=== PATIENT | female | born 1950 | race Caucasian/White ===

== ENCOUNTER → 2016-08-07 | Outpatient (CLI) | payer MEDICARE ==
[~2016-08-07] MED LIST: ACHD5005 PO; ALEN70TA47 PO; AZIT-21 PO; BENZ100C18 PO; CALC-80 PO; CEPH500C PO; CETI10CA PO; CHLO500T2 PO; CHOL500019 PO; FLUT50DI IH; HYDR-2890 PO; HYDR-3454 PO; LISI10TA2 PO; OMEP40CA36 PO; ZLP10T PO; [UNRECOGNIZED DRUG - CODE] PO
[2016-08-07 08:35] LABS: CREATININE SERUM 1.21 MG/DL (0.60-1.30); POTASSIUM 4.2 MMOL/L (3.6-5.0)
[2016-08-07 08:49] LABS: THYROID STIMULATING HORMONE 9.34 UIU/ML (0.35-4.94)
== END ==
LOC: LAB 08:01
PROVIDERS: ATTEND Internal Medicine Endocrinology, Diabetes & Metabolism
DX: E04.1 Nontoxic single thyroid nodule (principal); M85.80 Other specified disorders of bone density and structure, unspecified site; E21.3 Hyperparathyroidism, unspecified; Z98.84 Bariatric surgery status
CPT/HCPCS: 36415; 80048; 84443

== ENCOUNTER → 2016-08-27 | Outpatient (CLI) | payer MEDICARE, OTHER ==
[2016-08-27 13:59] LABS: MEAN PLATELET VOLUME 10.6 FL (7.4-10.4); RED BLOOD COUNT 4.89 10^6/uL (4.35-5.85); RED CELL DISTRIBUTION WIDTH 13.4 % (10.0-14.5); WHITE BLOOD COUNT 8.4 10^3/uL (4.3-11.0)
[2016-08-27 14:02] LABS: KETONES,URINE 1+ (NEGATIVE); LEUKOCYTE ESTERASE ,URINE 3+ (NEGATIVE); NITRITE,URINE NEGATIVE (NEGATIVE); PH,URINE 5 (5-9); PROTEIN,URINE 1+ (NEGATIVE); UROBILINOGEN,URINE 1 MG/DL (NORMAL)
[2016-08-27 14:10] LABS: BILIRUBIN,URINE 1+ (NEGATIVE)
[2016-08-27 14:14] LABS: ALBUMIN 4.3 G/DL (3.2-4.5); CALCIUM 9.2 MG/DL (8.5-10.1); CREATININE SERUM 1.32 MG/DL (0.60-1.30); PHOSPHORUS 3.7 MG/DL (2.3-4.7); POTASSIUM 4.4 MMOL/L (3.6-5.0)
[2016-08-28 07:35] LABS: CALCIUM PARA THYROID HORMONE 9.4 mg/dL (8.5-10.5); MICROALBUMIN/CREATININE RATIO 4.5 mg/gCR (0.0-30.0)
== END ==
LOC: LAB 13:24
PROVIDERS: ATTEND Internal Medicine Nephrology
DX: N18.3 Chronic kidney disease, stage 3 (moderate) (principal); I12.9 Hypertensive chronic kidney disease with stage 1 through stage 4 chronic kidney disease, or unspecified chronic kidney disease; M19.90 Unspecified osteoarthritis, unspecified site; Z98.84 Bariatric surgery status
CPT/HCPCS: 36415; 80069; 81000; 82043; 82306; 83970; 85027; 87088

== ENCOUNTER 2017-07-07 12:50 | Outpatient (CLI) | payer MEDICARE ==
[~2017-07-07] VITALS: Ht 167.6 cm; Wt 119.4 kg
[2017-07-07] MEDS ORDERED: CETI10TA17 PO (13:13)
[2017-07-07] MEDS ORDERED: HYDR-3820 PO (13:13)
[2017-07-07] MEDS ORDERED: FLUT9.9S NS (13:13)
[2017-07-07] MEDS ORDERED: MULT-35 PO (13:13)
[2017-07-07] MEDS ORDERED: ZOLP10TA5 PO (13:13)
[2017-07-07] MEDS ORDERED: CHLO500T4 PO (13:13)
[2017-07-07] MEDS ORDERED: MECL-124 PO (13:13)
[2017-07-07] MEDS ORDERED: LEVO50TA6 PO (13:13)
[2017-07-07] MEDS ORDERED: CALC600T12 PO (13:13)
[2017-07-07] MEDS ORDERED: OMEP40CA36 PO (13:13)
[2017-07-07] MEDS ORDERED: LISI10TA2 PO (13:13)
[2017-07-07] MEDS ORDERED: SODI650T PO (13:13)
[2017-07-07 13:19] VITALS: BP 135/86
== END 2017-07-07 14:21 | disposition home or self-care (01) ==
LOC: PREOP 12:50
PROVIDERS: ATTEND Podiatrist Foot & Ankle Surgery
DX: Z01.818 Encounter for other preprocedural examination (principal); Z11.2 Encounter for screening for other bacterial diseases; M20.42 Other hammer toe(s) (acquired), left foot; M89.372 Hypertrophy of bone, left ankle and foot; G57.82 Other specified mononeuropathies of left lower limb
CPT/HCPCS: 87081

== ENCOUNTER 2017-07-20 06:00 | Day surgery (SDC) | payer MEDICARE, OTHER ==
[~2017-07-20 06:00] MED LIST changes: +CALC600T12 PO; +CETI10TA17 PO; +CHLO500T4 PO; +FLUT9.9S NS; +HYDR-3820 PO; +LEVO50TA6 PO; +MECL-124 PO; +MULT-35 PO; +SODI650T PO; +ZOLP10TA5 PO
[2017-07-20] MEDS ORDERED: LACTATED RINGERS 1,000 ML IV PRN ×2 (06:12→06:56)
[2017-07-20 06:15] VITALS: BP 119/61
[2017-07-20] MEDS ORDERED: ceFAZolin INJECTION 1,000 MG in NS (IVPB) 50 ML IV ONE (06:15)
[2017-07-20] MEDS ORDERED: ceFAZolin INJECTION 1,000 MG in D5W 50 ML IVPB SOLUTION 50 ML IV ONE (06:45)
[2017-07-20] MEDS ORDERED: FAMOTIDINE 20MG/2ML IV (PEPCID) IV ONE (06:45)
[2017-07-20] MEDS ORDERED: ONDANSETRON 4 MG/2 ML (SDV) Z0FRAN IV ONE (06:45)
[2017-07-20] MEDS ORDERED: SCOPOLAMINE 1.5 MG (TRANSDERM-SCOP) PATCH TOP ONE (06:45)
[2017-07-20] MEDS ORDERED: proPOfol 200 MG/20 ML (DIPRIVAN) VIAL IV ONE (07:11)
[2017-07-20] MEDS ORDERED: DEXAMETHASONE 10 MG/ML (DECADRON) 1 ML VIAL ONE ×2 (07:11→07:23)
[2017-07-20] MEDS ORDERED: SEVOFLURANE (ULTANE) 15 ML INHAL SOLN ONE (07:11)
[2017-07-20] MEDS ORDERED: LIDOCAINE PF 2% 5 ML (XYLOCAINE) VIAL ONE (07:11)
[2017-07-20] MEDS ORDERED: ONDANSETRON 4 MG/2 ML (SDV) Z0FRAN ONE (07:11)
[2017-07-20] MEDS ORDERED: MIDAZOLAM 2 MG/2 ML (VERSED) VIAL ONE (07:12)
[2017-07-20] MEDS ORDERED: fentaNYL INJECTION 100 MCG/2 ML AMP ONE (07:12)
[2017-07-20 07:21] LABS: CALCIUM 8.7 MG/DL (8.5-10.1); CREATININE SERUM 0.98 MG/DL (0.60-1.30); POTASSIUM 3.9 MMOL/L (3.6-5.0)
[2017-07-20] MEDS ORDERED: BUPIVACAINE 0.5% 30 ML (SENSORCAINE) VIAL ONE (07:23)
--- NOTE | 2017-07-20 07:37 | Progress Note-Pre Operative ---
Pre-Operative Progress Note H&P Reviewed The H&P was reviewed, patient examined and no changes noted. Date Seen by Provider: Jul 20, 2017 Time Seen by Provider: 07:36 Date H&P Reviewed: Jul 20, 2017 Time H&P Reviewed: 07:36 Pre-Operative Diagnosis: Hammertoe 3rd, Hypertrophic 3rd metatarsal, Neuroma all left ERIKA BRASWELL DPM Jul 20, 2017 7:37 am
[2017-07-20] MEDS ORDERED: LACTATED RINGERS 1,000 ML IV SCH (09:02)
--- NOTE | 2017-07-20 09:02 | Progress Note-Post Operative ---
Post-Operative Progess Note Surgeon (s)/Nut Process Helper (s) Surgeon ERIKA BRASWELL DPM Nut Process Helper: NONE Pre-Operative Diagnosis Hammertoe 3rd, Hypertrophic 3rd metatarsal, Neuroma all left Post-Operative Diagnosis same Procedure & Operative Findings Date of Procedure 07/20/17 Procedure Performed/Findings Reduction of hammertoe 3rd digit, 3rd metatarsal osteotomy, Neurectomy 3rd Interspace, all left Anesthesia Type General Estimated Blood Loss Estimated blood loss (mL): minimal Specimens/Packing Specimens Removed None ERIKA BRASWELL DPM Jul 20, 2017 9:02 am
[2017-07-20] MEDS ORDERED: CEPH500C PO (09:05)
[2017-07-20] MEDS ORDERED: HYDROcodone/APAP 5 MG/325 MG (LORTAB) TAB PO PRN (09:15)
[2017-07-20] MEDS ORDERED: ONDANSETRON 4 MG/2 ML (SDV) Z0FRAN IVP PRN ×2 (09:15)
[2017-07-20] MEDS ORDERED: morphine INJ 10 MG/ML 1ML (SYR OR VIAL) IVP PRN (09:15)
--- NOTE | 2017-07-20 09:31 | Diagnostic Imaging Report ---
INDICATION: Hammertoe deformity of the third toe on the left, postop. Time of exam: 9:10 AM Postop changes to the left toe are identified. There is a K wire transfixing the left third toe. A screw is identified in the distal third metatarsal. Alignment is normal. No fractures are seen. The midfoot is unremarkable. There is a moderate-sized plantar calcaneal spur. IMPRESSION: Postop changes, as described. No acute feature is detected. Dictated by: Dictated on workstation # [id number]
[2017-07-20 09:55] VITALS: BP 117/65
[2017-07-20 10:25] VITALS: BP 127/68
[2017-07-20 10:55] VITALS: BP 127/68
[2017-07-20 11:00] VITALS: BP 151/76
--- NOTE | 2017-07-20 12:15 | OPERATIVE REPORT ---
DATE OF SERVICE: 07/20/2017 SURGEON: Ml Braswell DPM PREOPERATIVE DIAGNOSES: 1. Hammer digit syndrome, left third toe. 2. Hypertrophic third metatarsal. 3. Neuroma third and second intermetatarsal space, left foot. POSTOPERATIVE DIAGNOSES: 1. Hammer digit syndrome, left third toe. 2. Hypertrophic third metatarsal. 3. Neuroma third and second intermetatarsal space, left foot with the exception of no neuroma located at the second intermetatarsal space, left foot. PROCEDURE: 1. Reduction of hammertoe, left third digit. 2. Third metatarsal osteotomy. 3. Neurectomy third intermetatarsal space, left foot. WOUND CLASS: Clean. ANESTHESIA: General. HEMOSTASIS: Pneumatic ankle tourniquet at 250 mmHg. INDICATION: This 66-year-old female presents complaining of a painful left foot. Conservative therapy has met with unsatisfactory results and the patient is agreeable to surgical intervention after risks and complications were discussed at length. No guarantees were extended to the patient and she is willing to proceed. DESCRIPTION OF PROCEDURE: The patient was brought back to the operating table, placed in a secure supine position. Appropriate timeout was performed. General anesthetic was then induced. A pneumatic ankle tourniquet was placed on the left lower extremity over several layers of padding. The left foot was then prepped and draped in normal sterile manner. The left foot was then elevated not allowed to exsanguinate, after which the tourniquet was inflated to 250 mmHg. Attention was then directed to the dorsal aspect of the third ray where a 6 cm longitudinal linear incision was created from the metatarsal surgical neck to the distal interphalangeal joint. The incision was deepened in the same plane with great care to identify and retract all vital neurovascular structures. All the necessary blood vessels were cauterized as encountered. The incision was deepened down to the extensor tendon where a Z slide lengthening was performed overlying the proximal phalanx. The extensor tendon was reflected proximally releasing the extensor palomino overlying the metatarsophalangeal joint. A dorsal capsulorrhaphy was then performed to the third metatarsophalangeal joint and a release of the medial and lateral collateral ligaments. This exposed the hypertrophic head of the third metatarsal. Next, a Caden type osteotomy was then performed. A power sagittal saw was utilized to create the osteotomy allowing the capital fragment to translocate proximally and was fixated in its corrected position utilizing a 2.0 snap-off screw of 12 mm of length. Excellent bony apposition and fixation was appreciated at this time. The excess third metatarsal head was resected with a rongeur. Excellent range of motion was appreciated at the third metatarsophalangeal joint. The wound was flushed. Attention was then directed to the contracture at the proximal interphalangeal joint of the left third digit. Release of the medial and lateral collateral ligaments was performed. The head of the proximal phalanx was fashioned into a peg with a power sagittal saw and a power bur and a hole was created to the base of the middle phalanx with a power bur. A 0.054 K-wire was utilized to fixate the digit in its corrected position. Excellent bony apposition and fixation was appreciated at this time. The excess K-wire at the end of the toe was cut and a protective ball was placed over the end of the wire. Soft tissue exploration was then performed into the second and third intermetatarsal space. There is no neuroma identified to the second intermetatarsal space of the left foot; however, there was a yellow enlarged mass to the left third intermetatarsal space grossly identified to be a neuroma. This mass was then excised as proximally as possible and sent for gross and microscopic evaluation. The wounds were flushed with copious amounts of normal saline and closure was then performed in layers. Deep closure was performed with 3-0 Vicryl, superficial with 4-0 Vicryl, skin was closed with 4-0 Prolene in a horizontal mattress type stitch. Postoperative injection included 13 mL of 0.5% Marcaine followed by 10 mg of dexamethasone into the third intermetatarsal space, left foot. Postoperative dressing consisted of Betadine soaked Adaptic, sterile 4 x 4, sterile Kerlix all secured with a Coban wrap. The patient tolerated the anesthesia and procedure well, was transported from the operating room to the recovery area with vital signs stable and vascular status intact to all digits of the left foot. She was given a prescription for Keflex. She already has a prescription for hydrocodone at home. We will see her in the office for followup in 10 days' period of time or sooner if necessary. Job ID: [id number] DocumentID: [id number] Dictated Date: 07/20/2017 09:13:00 Boiler Assistant Operator Date: 07/20/2017 12:14:53 Dictated By: ML BRASWELL DPM
== END 2017-07-20 11:20 | disposition home or self-care (01) ==
LOC: SDC 06:00
PROVIDERS: ATTEND Podiatrist Foot & Ankle Surgery
DX: M20.42 Other hammer toe(s) (acquired), left foot (principal); M89.372 Hypertrophy of bone, left ankle and foot; G57.82 Other specified mononeuropathies of left lower limb; I12.9 Hypertensive chronic kidney disease with stage 1 through stage 4 chronic kidney disease, or unspecified chronic kidney disease; M81.0 Age-related osteoporosis without current pathological fracture; M79.7 Fibromyalgia; Z79.899 Other long term (current) drug therapy; K21.9 Gastro-esophageal reflux disease without esophagitis; N18.3 Chronic kidney disease, stage 3 (moderate); Z88.8 Allergy status to other drugs, medicaments and biological substances
CPT/HCPCS: 36415; 73620; 80048

== ENCOUNTER 2017-09-14 06:08 | Outpatient (CLI) | payer MEDICARE ==
[~2017-09-14] VITALS: Ht 167.6 cm; Wt 119.4 kg
[2017-09-14] MEDS ORDERED: LISI-556 PO (13:23)
== END 2017-09-14 13:26 ==
LOC: PREOP 06:08
PROVIDERS: ATTEND Surgery
DX: Z01.818 Encounter for other preprocedural examination (principal); Z86.010 Personal history of colon polyps; Z80.0 Family history of malignant neoplasm of digestive organs

== ENCOUNTER 2017-09-21 08:46 | Day surgery (SDC) | payer MEDICARE ==
[~2017-09-21] VITALS: Ht 167.6 cm; Wt 119.4 kg
[~2017-09-21 08:46] MED LIST changes: +LISI-556 PO
--- OUTSIDE RECORDS SUMMARY | 2017-09-21 08:50 | XMS REPORT ---
Author STEPHAN Yoon Organization [employer] Address Unknown Phone Unavailable Care Team Providers Care Territory Supervisor Name Role Phone STEPHAN CORDERO CP Unavailable Allergies No Known Allergies Problems Problem Type Condition Code Onset Dates Condition Status Problem Myalgia M79.1 Active Problem Hypercholesteremia E78.0 Active Problem Arthritis M19.90 Active Problem Mood disorder F39 Active Problem Corns L84 Active Problem Hyperparathyroidism E21.3 Active Medications Medication Code System Code Instructions Start Date End Date Status Dosage Zolpidem Tartrate [facility] [address]-88 10 MG Orally Once a day 1 tablet at bedtime Results No Known Results Summary Purpose [employer]Clinical[employer] Submission
--- OUTSIDE RECORDS SUMMARY | 2017-09-21 08:50 | XMS REPORT ---
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 Problem Other abnormal glucose 790.29 Active Problem Pain in joint, ankle and foot 719.47 Active Problem Family history of malignant neoplasm of gastrointestinal tract V16.0 Active Problem Special screening for malignant neoplasms, colon V76.51 Active Problem Localized superficial swelling, mass, or lump 782.2 Active Problem Adjustment disorder with depressed mood 309.0 Active Problem Special screening for osteoporosis V82.81 Active Problem Other specified counseling V65.49 Active Problem Pure hypercholesterolemia 272.0 Active Problem Cognitive communication deficit 799.52 Active Problem Orthostatic hypotension 458.0 Active Problem Secondary localized osteoarthrosis, 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 Active Problem Unspecified myalgia and myositis 729.1 Active Problem Obesity, unspecified 278.00 Active Problem Unspecified arthropathy, site unspecified 716.90 Active Problem Unspecified backache 724.5 Active Problem Need for prophylactic vaccination and inoculation, Influenza V04.81 Active Problem Other disorders of bone and cartilage 733.99 Active Problem Other specified disease of nail 703.8 Active Problem Other B-complex deficiencies 266.2 Active Problem Lesion of plantar nerve 355.6 Active Problem Special screening examination, human papillomavirus [HPV] V73.81 Active Problem Unspecified breast screening V76.10 Active Problem Unspecified disorder of kidney and ureter 593.9 Active Problem Screening for malignant neoplasm of the cervix V76.2 Active Problem Other abnormal blood chemistry 790.6 Active Problem Lateral epicondylitis of elbow 726.32 Active Problem Unspecified anemia 285.9 Active Problem Unspecified disorders of bursae and tendons in shoulder region 726.10 Active Problem Unspecified renal failure 586 Active Problem Adjustment disorder with mixed anxiety and depressed mood 309.28 Active Problem Hyperparathyroidism, unspecified 252.00 Active Problem Corns and callosities 700 Active Problem Pain in joint, shoulder region 719.41 Active Problem Unspecified persistent mental disorders due to conditions classified elsewhere 294.9 Active Medications Medication Code System Code Instructions Start Date End Date Status Dosage Jarret [facility] [address]-92 10-325 MG Orally 3 times a day November 07, 2014 1 tablet as needed Results No Known Results Summary Purpose eClinicalWorks Submission
--- OUTSIDE RECORDS SUMMARY | 2017-09-21 08:50 | XMS REPORT ---
Author STEPHAN Yoon Organization [employer] Address Unknown Phone Unavailable Care Team Providers Care Central Supply Manager Name Role Phone STEPHAN CORDERO CP Unavailable Allergies, Adverse Reactions, Alerts Substance Reaction Event Type Clonidine 0.1 Mg Tablet Blurry vission and weakness. Non Drug Allergy Problems Problem Type Condition Code Onset Dates Condition Status Assessment Chronic kidney disease, stage 4 (severe) N18.4 Active Problem Myalgia M79.1 Active Problem Hypercholesteremia E78.0 Active Problem Arthritis M19.90 Active Problem Mood disorder F39 Active Assessment Renal insufficiency N28.9 Active Problem Corns L84 Active Problem Hyperparathyroidism E21.3 Active Medications Medication Code System Code Instructions Start Date End Date Status Dosage Lisinopril [facility] 75222172201 10 MG TAKE ONE TABLET BY MOUTH IN THE MORNING Roxie [facility] [address]-28 10-325 MG Orally 3 times a day November 07, 2014 1 tablet as needed Cetirizine HCl [facility] [address]-69 10 MG Orally Once a day 1 tablet Chlorzoxazone [facility] 28377583456 500 MG TAKE ONE TABLET BY MOUTH TWICE DAILY NEEDED Zolpidem Tartrate [facility] [address]-26 10 MG Orally Once a day 1 tablet at bedtime Pepcid [facility] [address]-21 20 MG Orally 2 times a day Mar 09, 2015 1 tablet at bedtime Procedures Procedure Coding System Code Date Office Visit, Est Pt., Level 3 CPT-4 56373 May 28, 2015 [facility] VISIT ESTABLISHED PATIENT CPT-4 G0467 May 28, 2015 Vital Signs Date/Time: May 28, 2015 Temperature 97.9 F Weight 266.5 lbs Height 66 in BMI 43.01 Index Blood Pressure Diastolic 66 mmHg Blood Pressure Systolic 104 mmHg Cardiac Monitoring Heart Rate 80 bpm Results No Known Results Summary Purpose [employer]ClinicalWorks Submission
--- OUTSIDE RECORDS SUMMARY | 2017-09-21 08:51 | XMS REPORT ---
Author STEPHAN Yoon [facility] e[employer] Address Unknown Phone Unavailable Care Team Providers Care Final Dressing Cutter Name Role Phone STEPHAN CORDERO CP Unavailable [...] Active Problem Unspecified renal failure 586 Active Assessment Hyperparathyroidism, unspecified 252.00 Active Problem Adjustment disorder with mixed anxiety and depressed mood 309.28 Active Problem Hyperparathyroidism, unspecified 252.00 Active Problem Corns and callosities 700 Active Problem Pain in joint, shoulder region 719.41 Active Problem Unspecified persistent mental disorders due to conditions classified elsewhere 294.9 Active Medications No Known Medications Results No Known Results Summary Purpose [employer]ClinicalWorks Submission
--- OUTSIDE RECORDS SUMMARY | 2017-09-21 08:51 | XMS REPORT ---
Author STEPHAN Yoon Organization [employer] Address Unknown Phone Unavailable Care Team Providers Care Sewing Machine Attachment Tester Name Role Phone STEPHAN CORDERO CP Unavailable Allergies No Known Allergies Problems Problem Type Condition Code Onset Dates Condition Status Problem Mood disorder F39 Active Assessment Mass of throat R22.1 Active Problem 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 Problem Arthritis M19.90 Active Problem 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 Active Problem Corns L84 Active Problem Hyperparathyroidism E21.3 Active Problem Myalgia M79.1 Active Problem Hypercholesteremia E78.0 Active Medications No Known Medications Results No Known Results Summary Purpose [employer]ClinicalWorks Submission
--- OUTSIDE RECORDS SUMMARY | 2017-09-21 08:51 | XMS REPORT ---
Author Author STEPHAN CORDERO [facility] Address [address] [place] [address] Care Team Providers Care Retail Merchandiser Name Role Phone STEPHAN CORDERO Unavailable PROBLEMS Type Condition ICD9-CM Code OOL32-SM Code Onset Dates Condition Status SNOMED Code Problem Hyperparathyroidism E21.3 Active 32730714 Problem Mood disorder F39 Active 40358477 Problem 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 Active 52667808 Problem 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 52479143 Problem Hypercholesteremia E78.0 Active 86267070 Problem Corns L84 Active 313287650 Problem Arthritis M19.90 Active 2902681 Problem Myalgia M79.1 Active 21006550 ALLERGIES Unknown Allergies SOCIAL HISTORY No smoking Hx information available PLAN OF CARE VITAL SIGNS MEDICATIONS Medication Instructions Dosage Frequency Start Date End Date Duration Status Zolpidem Tartrate 10 mg Orally Once a day 1 tablet at bedtime 24h Active [place] 10-325 MG Orally 3 times a day 1 tablet as needed 8h 14 May, 2016 Active RESULTS No Results PROCEDURES No Known procedures IMMUNIZATIONS No Known Immunizations
--- OUTSIDE RECORDS SUMMARY | 2017-09-21 08:51 | XMS REPORT ---
Author STEPHAN Yoon Organization [employer] Address Unknown Phone Unavailable Care Team Providers Care Channel Cementer Name Role Phone STEPHAN CORDERO CP Unavailable Allergies No Known Allergies Problems Problem Type Condition Code Onset Dates Condition Status Problem Mood disorder F39 Active Problem 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 Problem Arthritis M19.90 Active Problem 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 Active Problem Corns L84 Active Problem Hyperparathyroidism E21.3 Active Problem Myalgia M79.1 Active Problem Hypercholesteremia E78.0 Active Medications Medication Code System Code Instructions Start Date End Date Status Dosage Zolpidem Tartrate [facility] [address]-44 10 mg Orally Once a day 1 tablet at bedtime Results No Known Results Summary Purpose [employer]ClinicalWorks Submission
--- OUTSIDE RECORDS SUMMARY | 2017-09-21 08:51 | XMS REPORT ---
Author Author STEPHAN CORDERO Organization [facility] Address [address] [place] [address] Care Team Providers Care Clinical Quality Manager Name Role Phone GIL STEPHAN Unavailable PROBLEMS Type Condition ICD9-CM Code [id number] Code Onset Dates Condition Status SNOMED Code Problem Hypercholesteremia E78.0 Active 38225624 Problem Arthritis M19.90 Active 9875414 Problem Hyperparathyroidism E21.3 Active 39182978 Problem Primary insomnia F51.01 Active 3040204 Problem Myalgia M79.1 Active 11663965 Problem Chronic kidney disease, stage 4 (severe) N18.4 Active 404274212 Problem BPV (benign positional vertigo), bilateral H81.13 Active 386685561 Problem Corns L84 Active 859527010 Problem Mood disorder F39 Active 21472477 Problem 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 Active 44258429 Problem 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 72588548 ALLERGIES No Information SOCIAL HISTORY Never Assessed PLAN OF CARE VITAL SIGNS MEDICATIONS Medication Instructions Dosage Frequency Start Date End Date Duration Status Levothyroxine Sodium 50 MCG Orally Once a day 1 tablet on an empty stomach in the morning 24h Active RESULTS No Results PROCEDURES No Known procedures IMMUNIZATIONS No Known Immunizations MEDICAL (GENERAL) HISTORY Type Description Date Medical History hypertension Medical History acid reflux Medical History osteoporosis Medical History Arthritis Medical History fibromyalgia Surgical History cholecystectomy 1969's Surgical History gastric bypass 1969' Surgical History orthopedic surgery-left and right foot Surgical History arthroscopic knee surgery-left Surgical History Left knee meniscus repair 2009 Surgical History half of thyroid removed Jun 2016 Hospitalization History Hospitalization for surgery only
--- OUTSIDE RECORDS SUMMARY | 2017-09-21 08:51 | XMS REPORT ---
Author STEPHAN Yoon Organization [employer] Address Unknown Phone Unavailable Care Team Providers Care Plastic Tool Maker Name Role Phone STEPHAN CORDERO CP Unavailable [...] Instructions Start Date End Date Status Dosage [facility] [address]-14 10-325 MG Orally 3 times a day November 07, 2014 1 tablet as needed Results No Known Results Summary Purpose eClinicalWorks Submission
--- OUTSIDE RECORDS SUMMARY | 2017-09-21 08:52 | XMS REPORT ---
Author Author STEPHAN CORDERO [facility] eClinicalWorks Address Unknown Phone Unavailable Care Team Providers Care Survey Project Manager Name Role Phone STEPHAN CORDERO CP Unavailable Allergies No Known Allergies Problems Problem Type Condition Code Onset Dates Condition Status Problem Primary [...] elsewhere 294.9 Active Medications No Known Medications Procedures Procedure Coding System Code Date LAB NOT BILLED BY [facility] CPT-4 NOBLL Apr 18, 2015 VENIPUNCT, ROUTINE* CPT-4 65931 Apr 18, 2015 Results No Known Results Summary Purpose eClinicalWorks Submission
--- OUTSIDE RECORDS SUMMARY | 2017-09-21 08:52 | XMS REPORT ---
Author STEPHAN Yoon Organization [employer] Address Unknown Phone Unavailable Care Team Providers Care Transcription Manager Name Role Phone STEPHAN CORDERO CP Unavailable Allergies No Known Allergies Problems Problem Type Condition Code Onset Dates Condition Status Problem Myalgia M79.1 Active Problem Hypercholesteremia E78.0 Active Problem Arthritis M19.90 Active Problem Mood disorder F39 Active Problem Corns L84 Active Problem Hyperparathyroidism E21.3 Active Medications Medication Code System Code Instructions Start Date End Date Status Dosage Zolpidem Tartrate [facility] [address]-79 10 MG Orally Once a day 1 tablet at bedtime Results No Known Results Summary Purpose eClinicalWorks Submission
--- OUTSIDE RECORDS SUMMARY | 2017-09-21 08:52 | XMS REPORT ---
Author STEPHAN Yoon [facility] eClinicalWorks Address Unknown Phone Unavailable Care Team Providers Care Multimedia Artist Name Role Phone STEPHAN CORDERO CP Unavailable Allergies, Adverse Reactions, Alerts Substance Reaction Event Type Ibuprofen no anti inflammatories Drug Allergy Cymbalta nausea and vomiting Drug Allergy Clonidine HCl blurry vision/weakness Drug Allergy Problems Problem Type Condition Code Onset Dates Condition Status Assessment Encounter for immunization Z23 Active Problem Mood disorder F39 Active Assessment 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 Active Problem 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 Problem Arthritis M19.90 Active Problem 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 Active Problem Corns L84 Active Problem Hyperparathyroidism E21.3 Active Problem Myalgia M79.1 Active Problem Hypercholesteremia E78.0 Active Medications Medication Code System Code Instructions Start Date End Date Status Dosage Chlorzoxazone [facility] [address]-58 500 MG 2 times a day 1 tablet Calcium [facility] [address]-83 500 MG Orally 3 times a day 1 tablet with meals Gulliver [facility] [address]-47 10-325 MG Orally 3 times a day November 07, 2014 1 tablet as needed Omeprazole [facility] [address]-89 40 mg Once a day 1 capsule Multivital Ruston [facility] [address] Orally not defined Vitamin B-12 [facility] [address] 1000 MCG Sublingual Once a day 1 tablet under the tongue and allow to dissolve Zolpidem Tartrate [facility] [address]-43 10 mg Orally Once a day 1 tablet at bedtime Cetirizine HCl [facility] [address]-43 10 mg Orally Once a day 1 tablet Fluticasone Propionate [facility] [address]-95 50 MCG/ACT Nasally Once a day Mar 17, 2016 1 spray in each nostril Lisinopril [facility] [address]-00 10 mg Once a day 1 tablet Procedures Procedure Coding System Code Date Office Visit, Est Pt., Level 3 CPT-4 27045 Apr 21, 2016 [facility] CPT-4 NOBLL Apr 21, 2016 [facility] VISIT ESTABLISHED PATIENT CPT-4 G0467 Apr 21, 2016 THER/PROPH/DIAG INJ, SC/IM CPT-4 60241 Apr 21, 2016 SINGLE IMMUNIZATION ADMIN CPT-4 72747 Apr 21, 2016 PCV 13 CPT-4 98590 Apr 21, 2016 B12, VITAMIN (UP TO 1000 MCG) CPT-4 J3420 Apr 21, 2016 VENIPUNCT, ROUTINE* CPT-4 44782 Apr 21, 2016 Vital Signs Date/Time: Apr 21, 2016 Cardiac Monitoring Heart Rate 80 bpm Weight 270.0 lbs Height 66 in BMI 43.57 Index Blood Pressure Diastolic 78 mmHg Blood Pressure Systolic 134 mmHg Results Name Result Date Reference Range Unit Abnormality Flag TSH ----TSH 1.860 [id number] 0.450-4.500 uIU/mL ROUTINE VENIPUNCTURE T3 FREE Immunizations Vaccine Administration Date PCV 13 Apr 21, 2016 Summary Purpose eClinicalWorks Submission
--- OUTSIDE RECORDS SUMMARY | 2017-09-21 08:52 | XMS REPORT ---
Author STEPHAN Yoon Organization [employer] Address Unknown Phone Unavailable Care Team Providers Care Drilling Machine Runner Name Role Phone STEPHAN CORDERO CP Unavailable [...] E78.0 Active Medications No Known Medications Results Name Result Date Reference Range Unit Abnormality Flag Ultrasound : Thyroid Summary Purpose eClinicalWorks Submission
--- OUTSIDE RECORDS SUMMARY | 2017-09-21 08:52 | XMS REPORT ---
Author Author STEPHAN CORDERO [facility] Address [address] [place] [address] Care Team Providers Care Cup Machine Operator Name Role Phone STEPHAN CORDERO Unavailable PROBLEMS Type Condition ICD9-CM Code NIW53-ML Code Onset Dates Condition Status SNOMED Code Problem Mood disorder F39 Active 61071836 Problem Corns L84 Active 008241739 Problem Hyperparathyroidism E21.3 Active 67709566 Problem Primary insomnia F51.01 Active 7727761 Problem BPV (benign positional vertigo), bilateral H81.13 Active 937186192 Problem 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 Active 90347408 Problem Myalgia M79.1 Active 15666315 Problem Hypercholesteremia E78.0 Active 80933992 Problem 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 90661237 Problem Arthritis M19.90 Active 3015180 ALLERGIES No Known Allergies SOCIAL HISTORY No smoking Hx information available PLAN OF CARE VITAL SIGNS MEDICATIONS No Known Medications RESULTS No Results PROCEDURES No Known procedures IMMUNIZATIONS No Known Immunizations
--- OUTSIDE RECORDS SUMMARY | 2017-09-21 08:52 | XMS REPORT ---
Author STEPHAN Yoon [facility] eClinicalWorks Address Unknown Phone Unavailable Care Team Providers Care Line Tender Name Role Phone STEPHAN CORDERO CP Unavailable Allergies, Adverse Reactions, Alerts Substance Reaction Event Type Clonidine 0.1 Mg Tablet Blurry vission and weakness. 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 [address]-87 10 MG Orally Once a day 1 tablet at bedtime Pepcid [facility] [address]-19 20 MG Orally 2 times a day Mar 09, 2015 1 tablet at bedtime Lisinopril [facility] 24462046250 10 MG TAKE ONE TABLET BY MOUTH IN THE MORNING Cetirizine HCl [facility] [address]-55 10 MG Orally Once a day 1 tablet [place] [facility] [address]-49 10-325 MG Orally 3 times a day November 07, 2014 1 tablet as needed Procedures Procedure Coding System Code Date Office Visit, Est Pt., Level 3 CPT-4 55960 Mar 09, 2015 [facility] VISIT ESTABLISHED PATIENT CPT-4 G0467 Mar 09, 2015 Vital Signs Date/Time: Mar 09, 2015 Temperature 96.7 F Weight 270.1 lbs Height 66 in BMI 43.59 Index Blood Pressure Diastolic 60 mmHg Blood Pressure Systolic 110 mmHg Cardiac Monitoring Heart Rate 78 bpm Results No Known Results Summary Purpose eClinicalWorks Submission
--- OUTSIDE RECORDS SUMMARY | 2017-09-21 08:52 | XMS REPORT ---
Author STEPHAN Yoon Organization eClinicalWorks Address Unknown Phone Unavailable Care Team Providers Care Dog Races Manager Name Role Phone STEPHAN CORDERO CP Unavailable Allergies No Known Allergies Problems Problem Type Condition Code Onset Dates Condition Status Problem Myalgia M79.1 Active Problem Hypercholesteremia E78.0 Active Problem Arthritis M19.90 Active Problem Mood disorder F39 Active Problem Corns L84 Active Problem Hyperparathyroidism E21.3 Active Medications Medication Code System Code Instructions Start Date End Date Status Dosage [facility] [address]-46 10-325 MG Orally 3 times a day November 07, 2014 1 tablet as needed Results No Known Results Summary Purpose eClinicalWorks Submission
--- OUTSIDE RECORDS SUMMARY | 2017-09-21 08:52 | XMS REPORT ---
Author STEPHAN Yoon Organization [employer] Address Unknown Phone Unavailable Care Team Providers Care Dry Cure Worker Name Role Phone STEPHAN CORDERO CP Unavailable Allergies No Known Allergies Problems Problem Type Condition Code Onset Dates Condition Status Problem Myalgia M79.1 Active Problem Hypercholesteremia E78.0 Active Problem Arthritis M19.90 Active Problem Mood disorder F39 Active Problem Corns L84 Active Problem Hyperparathyroidism E21.3 Active Medications No Known Medications Results No Known Results Summary Purpose eClinicalWorks Submission
--- OUTSIDE RECORDS SUMMARY | 2017-09-21 08:52 | XMS REPORT ---
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
--- OUTSIDE RECORDS SUMMARY | 2017-09-21 08:52 | XMS REPORT ---
Author STEPHAN Yoon Organization eClinicalWorks Address Unknown Phone Unavailable Care Team Providers Care Control Panel Assembler Name Role Phone STEPHAN CORDERO CP Unavailable [...]
--- OUTSIDE RECORDS SUMMARY | 2017-09-21 08:52 | XMS REPORT ---
Author PIYUSH Devlin [facility] eClinicalWorks Address Unknown Phone Unavailable Care Team Providers Care Securities Attorney Name Role Phone PIYUSH TIRADO CP Unavailable Allergies, Adverse Reactions, Alerts Substance Reaction Event Type Cymbalta nausea and vomiting Drug Allergy Clonidine 0.1 Mg Tablet Blurry vission and weakness. Non Drug Allergy Problems Problem Type Condition Code Onset Dates Condition Status Problem Myalgia M79.1 Active Problem Hypercholesteremia E78.0 Active Problem Arthritis M19.90 Active Problem Mood disorder F39 Active Assessment Swelling of left knee joint M25.462 Active Problem Corns L84 Active Problem Hyperparathyroidism E21.3 Active Medications Medication Code System Code Instructions Start Date End Date Status Dosage Voltaren [facility] [address]-24 January 18, 2014 by topical route Omeprazole [facility] [address]-10 40 MG Orally Once a day 1 capsule Lisinopril [facility] 22866186734 10 MG TAKE ONE TABLET BY MOUTH IN THE MORNING Chlorzoxazone [facility] 22021075890 500 MG TAKE ONE TABLET BY MOUTH TWICE DAILY NEEDED Parafon Forte DSC [facility] [address]-92 500 MG Orally 2 times a day as needed 1 tablet Cholecalciferol [facility] [address]1910 23663 UNIT Orally 1 capsule monthly Cetirizine HCl [facility] [address]-79 10 MG Orally Once a day 1 tablet [place] [facility] [address]-65 10-325 MG Orally 3 times a day November 07, 2014 1 tablet as needed Zolpidem Tartrate [facility] [address]-69 10 MG Orally Once a day 1 tablet at bedtime Procedures Procedure Coding System Code Date [facility] V[facility] ESTABLISHED PATIENT CPT-4 G0467 Jun 19, 2015 Office Visit, Est Pt., Level 3 CPT-4 97330 Jun 19, 2015 X-RAY EXAM OF KNEE, 3 CPT-4 93398 Jun 19, 2015 Vital Signs Date/Time: Jun 19, 2015 Temperature 98.7 F Weight 267.5 lbs Height 66 in BMI 43.17 Index Blood Pressure Diastolic 82 mmHg Blood Pressure Systolic 124 mmHg Cardiac Monitoring Heart Rate 76 bpm Results No Known Results Summary Purpose eClinicalWorks Submission
--- OUTSIDE RECORDS SUMMARY | 2017-09-21 08:53 | XMS REPORT ---
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
--- OUTSIDE RECORDS SUMMARY | 2017-09-21 08:53 | XMS REPORT ---
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
--- OUTSIDE RECORDS SUMMARY | 2017-09-21 08:53 | XMS REPORT ---
Author STEPHAN Yoon [facility] eClinicalWorks Address Unknown Phone Unavailable Care Team Providers Care Balance Wheel Arm Burnisher Name Role Phone STEPHAN CORDERO CP Unavailable [...]
--- OUTSIDE RECORDS SUMMARY | 2017-09-21 08:53 | XMS REPORT ---
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 [address]-68 10 mg Orally Once a day 1 tablet at bedtime Results No Known Results Summary Purpose eClinicalWorks Submission
--- OUTSIDE RECORDS SUMMARY | 2017-09-21 08:53 | XMS REPORT ---
Author STEPHAN Yoon [facility] eClinicalWorks Address Unknown Phone Unavailable Care Team Providers Care Tool Maintenance Worker Name Role Phone STEPHAN CORDERO CP [...]
--- OUTSIDE RECORDS SUMMARY | 2017-09-21 08:53 | XMS REPORT ---
Author Author STEPHAN CORDERO [facility] eClinicalWorks Address Unknown Phone Unavailable Care Team Providers Care Regulatory Affairs Internship Name Role Phone STEPHAN CORDERO CP Unavailable [...] Medications Procedures Procedure Coding System Code Date VENIPUNCT, ROUTINE* CPT-4 74698 May 25, 2015 LAB NOT BILLED BY [facility] CPT-4 NOBLL May 25, 2015 Results Name Result Date Reference Range Unit Abnormality Flag ROUTINE VENIPUNCTURE Summary Purpose eClinicalWorks Submission
--- OUTSIDE RECORDS SUMMARY | 2017-09-21 08:53 | XMS REPORT ---
Author Author STEPHAN CORDERO Organization [facility] Address [address] [place] [address] Care Team Providers Care Worm Sorter Name Role Phone STEPHAN CORDERO Unavailable PROBLEMS Type Condition ICD9-CM Code [id number] Code Onset Dates Condition Status SNOMED Code Problem Hypercholesteremia E78.0 Active 05470167 Problem Arthritis M19.90 Active 3605702 Problem Hyperparathyroidism E21.3 Active 85098548 Problem Primary insomnia F51.01 Active 1790297 Problem Myalgia M79.1 Active 29072229 Problem Chronic kidney disease, stage 4 (severe) N18.4 Active 511344639 Problem BPV (benign positional vertigo), bilateral H81.13 Active 020473418 Problem Corns L84 Active 397219613 Problem Mood disorder F39 Active 76613375 Problem 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 Microalbumin, Urine 5.1 Not Estab. Microalb/Creat Ratio 3.3 0.0-30.0 PROCEDURES Procedure Date Ordered Result Body Site LAB NOT BILLED BY [facility] September 19, 2016 IMMUNIZATIONS No Known Immunizations MEDICAL (GENERAL) HISTORY Type Description Date Medical History hypertension Medical History acid reflux Medical History osteoporosis Medical History Arthritis Medical History fibromyalgia Surgical History cholecystectomy 1969's Surgical History gastric bypass 1969's Surgical History orthopedic surgery-left and right foot Surgical History arthroscopic knee surgery-left Surgical History Left knee meniscus repair 2009 Surgical History half of thyroid removed Jun 2016 Hospitalization History Hospitalization for surgery only
--- OUTSIDE RECORDS SUMMARY | 2017-09-21 08:53 | XMS REPORT ---
Author STEPHAN Yoon [facility] eClinicalWorks Address Unknown Phone Unavailable Care Team Providers Care Base Manager Name Role Phone STEPHAN CORDERO CP [...] and tendons in shoulder region 726.10 Active Assessment Hyperparathyroidism, unspecified 252.00 Active Problem Unspecified renal failure 586 Active Assessment Other B-complex deficiencies 266.2 Active Problem Adjustment disorder with mixed anxiety and depressed mood 309.28 Active Problem Hyperparathyroidism, unspecified 252.00 Active Problem Corns and callosities 700 Active Problem Pain in joint, shoulder region 719.41 Active Problem 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
--- OUTSIDE RECORDS SUMMARY | 2017-09-21 08:53 | XMS REPORT ---
Author Author STEPHAN CORDERO Organization [facility] Address [address] [place] [address] Care Team Providers Care Camera Assembler Name Role Phone GIL STEPHAN Unavailable PROBLEMS Type Condition ICD9-CM Code [id number] Code Onset Dates Condition Status SNOMED Code Problem Hypercholesteremia E78.0 Active 92208093 Problem Arthritis M19.90 Active 4517151 Problem Hyperparathyroidism E21.3 Active 70176285 Problem Primary insomnia F51.01 Active 7464275 Problem Myalgia M79.1 Active 64905795 Problem Chronic kidney disease, stage 4 (severe) N18.4 Active 741238856 Problem BPV (benign positional vertigo), bilateral H81.13 Active 449459780 Problem Corns L84 Active 904267775 Problem Mood disorder F39 Active 56336719 Problem 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
--- OUTSIDE RECORDS SUMMARY | 2017-09-21 08:53 | XMS REPORT ---
Author STEPHAN Yoon Organization eClinicalWorks Address Unknown Phone Unavailable Care Team Providers Care Tower Supervisor Name Role Phone STEPHAN CORDERO CP Unavailable Allergies No Known Allergies Problems No Known Problems Medications No Known Medications Results No Known Results Summary Purpose eClinicalWorks Submission
--- OUTSIDE RECORDS SUMMARY | 2017-09-21 08:54 | XMS REPORT ---
Author Author STEPHAN CORDERO Organization [facility] Address [address] [place] [address] Care Team Providers Care Sports Physician Name Role Phone GIL STEPHAN Unavailable PROBLEMS Type Condition ICD9-CM Code MFR00-MW Code Onset Dates Condition Status SNOMED Code Problem Hypercholesteremia E78.0 Active 80675940 Problem Arthritis M19.90 Active 2840706 Problem Hyperparathyroidism E21.3 Active 64752396 Problem Primary insomnia F51.01 Active 1493383 Problem Myalgia M79.1 Active 16391896 Problem Chronic kidney disease, stage 4 (severe) N18.4 Active 865931533 Problem BPV (benign positional vertigo), bilateral H81.13 Active 694447825 Problem Corns L84 Active 569901392 Problem Mood disorder F39 Active 16973602 Problem 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
--- OUTSIDE RECORDS SUMMARY | 2017-09-21 08:54 | XMS REPORT ---
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 18450405 Problem Arthritis M19.90 Active 2570221 Problem Corns L84 Active 281449934 Problem Hyperparathyroidism E21.3 Active 22888310 Problem Myalgia M79.1 Active 88974942 Problem Hypercholesteremia E78.0 Active 80903508 ALLERGIES Unknown Allergies SOCIAL HISTORY No smoking Hx information available PLAN OF CARE VITAL SIGNS MEDICATIONS Unknown Medications RESULTS Name Result Date Reference Range PTH (INTACT) 2016-03-19 PTH, Intact 99 15-65 VITAMIN D, 25-H 2016-03-19 Vitamin D, 25-Hydroxy 39.3 30.0-100.0 CMP 2016-03-19 Glucose, Serum 89 65-99 BUN 23 8-27 Creatinine, Serum 1.08 0.57-1.00 eGFR If NonAfricn Am 54 >59 eGFR If Africn Am 62 >59 BUN/Creatinine Ratio 21 11-26 Sodium, Serum 141 134-144 Potassium, Serum 4.7 3.5-5.2 Chloride, Serum 103 97-108 Carbon Dioxide, Total 21 18-29 Calcium, Serum 8.8 8.7-10.3 Protein, Total, Serum 6.3 6.0-8.5 Albumin, Serum 3.8 3.6-4.8 Globulin, Total 2.5 1.5-4.5 A/G Ratio 1.5 1.1-2.5 Bilirubin, Total 0.2 0.0-1.2 Alkaline Phosphatase, S 110 39-117 AST (SGOT) 11 0-40 ALT (SGPT) 7 0-32 PROCEDURES Procedure Date Ordered Related Diagnosis Body Site [facility] Mar [facility], 2016 VENIPUNCT, ROUTINE* Mar 19, 2016 IMMUNIZATIONS No Known Immunizations
--- OUTSIDE RECORDS SUMMARY | 2017-09-21 08:54 | XMS REPORT ---
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 36722376 Problem Arthritis M19.90 Active 9449490 Problem Corns L84 Active 333036717 Problem Hyperparathyroidism E21.3 Active 75851497 Problem Myalgia M79.1 Active 61355267 Problem Hypercholesteremia E78.0 Active 96044687 ALLERGIES Unknown Allergies SOCIAL HISTORY No smoking Hx information available PLAN OF CARE VITAL SIGNS MEDICATIONS Medication Instructions Dosage Frequency Start Date End Date Duration Status Fluticasone Propionate 50 MCG/ACT Nasally Once a day 1 spray in each nostril 24h Feb, Active Cetirizine HCl 10 mg Orally Once a day 1 tablet 24h Feb, Aug, 30 day(s) Active RESULTS No Results PROCEDURES No Known procedures IMMUNIZATIONS No Known Immunizations
--- OUTSIDE RECORDS SUMMARY | 2017-09-21 08:54 | XMS REPORT ---
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 Creatinine, Ur 24hr [phone] PTH (INTACT) 2016-06-16 PTH, Intact 90 15-65 MAGNESIUM, SERUM 2016-06-16 Magnesium, Serum 1.9 1.6-2.3 VITAMIN D, 25-H 2016-06-16 Vitamin D, 25-Hydroxy 51.1 30.0-100.0 CMP 2016-06-16 Glucose, Serum 90 65-99 BUN 20 8-27 Creatinine, Serum 1.07 0.57-1.00 eGFR If NonAfricn Am 54 >59 eGFR If Africn Am 63 >59 BUN/Creatinine Ratio 19 11-26 Sodium, Serum 142 134-144 Potassium, Serum 4.8 3.5-5.2 Chloride, Serum 106 96-106 Carbon Dioxide, Total 23 18-29 Calcium, Serum 8.7 8.7-10.3 Protein, Total, Serum 6.4 6.0-8.5 Albumin, Serum 3.9 3.6-4.8 Globulin, Total 2.5 1.5-4.5 A/G Ratio 1.6 1.1-2.5 Bilirubin, Total 0.2 0.0-1.2 Alkaline Phosphatase, S 117 39-117 AST (SGOT) 12 0-40 ALT (SGPT) 10 0-32 TSH 2016-06-16 TSH 2.980 0.450-4.500 PROCEDURES Procedure Date Ordered Related Diagnosis Body Site [facility] Jun 16, 2016 VENIPUNCT, ROUTINE* Jun 16, 2016 IMMUNIZATIONS No Known Immunizations
--- OUTSIDE RECORDS SUMMARY | 2017-09-21 08:54 | XMS REPORT ---
Author STEPHAN Yoon [facility] eClinicalWorks Address Unknown Phone Unavailable Care Team Providers Care Pathology Manager Name Role Phone STEPHAN CORDERO CP [...] Date End Date Status Dosage Zolpidem Tartrate [facility] [address]-12 10 MG Orally Once a day 1 tablet at bedtime Results No Known Results Summary Purpose eClinicalWorks Submission
--- OUTSIDE RECORDS SUMMARY | 2017-09-21 08:54 | XMS REPORT ---
Author Author STEPHAN CORDERO 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
--- OUTSIDE RECORDS SUMMARY | 2017-09-21 08:54 | XMS REPORT ---
Author STEPHAN Yoon [facility] eClinicalWorks Address Unknown Phone Unavailable Care Team Providers Care Chief Vendor Quality Name Role Phone STEPHAN CORDERO CP Unavailable Allergies, Adverse Reactions, Alerts Substance Reaction Event Type Cymbalta nausea and vomiting Drug Allergy Clonidine 0.1 Mg Tablet Blurry vission and weakness. Non Drug Allergy Problems Problem Type Condition Code Onset Dates Condition Status Problem Myalgia M79.1 Active Problem Hypercholesteremia E78.0 Active Problem Arthritis M19.90 Active Problem Mood disorder F39 Active Assessment Pain in left knee M25.562 Active Problem Corns L84 Active Problem Hyperparathyroidism E21.3 Active Medications Medication Code System Code Instructions Start Date End Date Status Dosage Chlorzoxazone [facility] [id number] 500 MG TAKE ONE TABLET BY MOUTH TWICE DAILY NEEDED Multivital [place] [facility] [address] Orally not defined Voltaren [facility] [address]-13 January 18, 2014 by topical route Lisinopril [facility] 64835207659 10 MG TAKE ONE TABLET BY MOUTH IN THE MORNING [place] [facility] [address]-02 10-325 MG Orally 3 times a day November 07, 2014 1 tablet as needed Cholecalciferol [facility] [address] 31914 UNIT Orally 1 capsule monthly Calcium [facility] 27[address]61 500 MG Orally Twice a day 1 tablet with meals Omeprazole [facility] [address]-14 40 MG Orally Once a day 1 capsule Vitamin B-12 [facility] 61[address] 1000 MCG Sublingual Once a day 1 tablet under the tongue and allow to dissolve Zolpidem Tartrate [facility] [address]-87 10 MG Orally Once a day 1 tablet at bedtime Cetirizine HCl [facility] [address]-78 10 MG Orally Once a day 1 tablet Procedures Procedure Coding System Code Date Office Visit, Est Pt., Level 3 CPT-4 92371 Jul 23, 2015 [facility] VISIT ESTABLISHED PATIENT CPT-4 G0467 Jul 23, 2015 Vital Signs Date/Time: Jul 23, 2015 Temperature 98.6 F Weight 267.0 lbs Height 66 in BMI 43.09 Index Blood Pressure Diastolic 88 mmHg Blood Pressure Systolic 140 mmHg Cardiac Monitoring Heart Rate 84 bpm Results No Known Results Summary Purpose eClinicalWorks Submission
--- OUTSIDE RECORDS SUMMARY | 2017-09-21 08:54 | XMS REPORT ---
Author STEPHAN Yoon [facility] eClinicalWorks Address Unknown Phone Unavailable Care Team Providers Care Congressional Aide Name Role Phone STEPHAN CORDERO CP Unavailable [...]
--- OUTSIDE RECORDS SUMMARY | 2017-09-21 08:54 | XMS REPORT ---
Author Author STEPHAN CORDERO Organization [facility] Address [address] [place] [address] Care Team Providers Care Weir Fisher Name Role Phone STEPHAN CORDERO Unavailable PROBLEMS Type Condition ICD9-CM Code [id number] Code Onset Dates Condition Status SNOMED Code Problem Hypercholesteremia E78.0 Active 47641801 Problem Arthritis M19.90 Active 8961987 Problem Hyperparathyroidism E21.3 Active 59511585 Problem Primary insomnia F51.01 Active 9526842 Problem Myalgia M79.1 Active 93951609 Problem Chronic kidney disease, stage 4 (severe) N18.4 Active 889956196 Problem BPV (benign positional vertigo), bilateral H81.13 Active 444101363 Problem Corns L84 Active 307515665 Problem Mood disorder F39 Active 01795443 Problem 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 Active 22361733 Problem 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 33948243 ALLERGIES No Information SOCIAL HISTORY Never Assessed PLAN OF CARE VITAL SIGNS MEDICATIONS Unknown Medications RESULTS Name Result Date Reference Range RENAL PROFILE 2016-11-17 Glucose, Serum 114 65-99 BUN 25 8-27 Creatinine, Serum 1.26 0.57-1.00 eGFR If NonAfricn Am 44 >59 eGFR If Africn Am 51 >59 BUN/Creatinine Ratio 20 12-28 Sodium, Serum 141 134-144 Potassium, Serum 4.2 3.5-5.2 Chloride, Serum 103 96-106 Carbon Dioxide, Total 20 18-29 Calcium, Serum 9.2 8.7-10.3 Phosphorus, Serum 3.3 2.5-4.5 Albumin, Serum 4.4 3.6-4.8 TSH 2016-11-17 TSH 7.370 0.450-4.500 PROCEDURES Procedure Date Ordered Result Body Site LAB NOT BILLED BY [facility] November 17, 2016 VENIPUNCT, ROUTINE* November 17, 2016 IMMUNIZATIONS No Known Immunizations MEDICAL (GENERAL) HISTORY Type Description Date Medical History hypertension Medical History acid reflux Medical History osteoporosis Medical History Arthritis Medical History fibromyalgia Surgical History cholecystectomy 1970's Surgical History gastric bypass 1969's Surgical History orthopedic surgery-left and right foot Surgical History arthroscopic knee surgery-left Surgical History Left knee meniscus repair 2009 Surgical History half of thyroid removed Jun 2016 Hospitalization History Hospitalization for surgery only
--- OUTSIDE RECORDS SUMMARY | 2017-09-21 08:54 | XMS REPORT ---
Author Author STEPHAN CORDERO [facility] eClinicalWorks Address Unknown Phone Unavailable Care Team Providers Care Ammonia Still Operator Name Role Phone STEPHAN CORDERO CP Unavailable [...] Coding System Code Date VENIPUNCT, ROUTINE* CPT-4 94102 May 07, 2015 LAB NOT BILLED BY [facility] CPT-4 NOBLL May 07, 2015 Results Name Result Date Reference Range Unit Abnormality Flag ROUTINE VENIPUNCTURE Summary Purpose eClinicalWorks Submission
--- OUTSIDE RECORDS SUMMARY | 2017-09-21 08:54 | XMS REPORT ---
Author Author STEPHAN CORDERO [facility] Address [address] [place] [address] Care Team Providers Care Case Management Assistant Name Role Phone STEPHAN CORDERO Unavailable PROBLEMS Type Condition ICD9-CM Code [id number] Code Onset Dates Condition Status SNOMED Code Problem Hypercholesteremia E78.0 Active 16057131 Problem Arthritis M19.90 Active 9008845 Problem Hyperparathyroidism E21.3 Active 90508904 Problem Primary insomnia F51.01 Active 7862469 Problem BPV (benign positional vertigo), bilateral H81.13 Active 195248835 Problem 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 Active 52673106 Problem Myalgia M79.1 Active 34950856 Problem Mood disorder F39 Active 05728439 Problem 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
--- OUTSIDE RECORDS SUMMARY | 2017-09-21 08:55 | XMS REPORT ---
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
--- OUTSIDE RECORDS SUMMARY | 2017-09-21 08:55 | XMS REPORT ---
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
--- OUTSIDE RECORDS SUMMARY | 2017-09-21 08:55 | XMS REPORT ---
Author STEPHAN Yoon [facility] eClinicalWorks Address Unknown Phone Unavailable Care Team Providers Care Adult Secondary Education Instructor Name Role Phone STEPHAN CORDERO CP Unavailable [...] Start Date End Date Status Dosage Voltaren [facility] [address]-39 January 18, 2014 by topical route Multivital [place] [facility] [address] Orally not defined Chlorzoxazone [facility] [address]-25 500 MG 2 times a day 1 tablet [place] [facility] [address]-29 10-325 MG Orally 3 times a day November 07, 2014 1 tablet as needed Omeprazole [facility] [address]-48 40 mg Once a day 1 capsule Calcium [facility] [address]-68 500 MG Orally 3 times a day 1 tablet with meals Cetirizine HCl [facility] [address]-78 10 mg Orally Once a day 1 tablet Vitamin D [facility] [address]-08 1000 UNIT Orally Once a day 1 tablet Zolpidem Tartrate [facility] [address]-23 10 mg Orally Once a day 1 tablet at bedtime Lisinopril [facility] [address]-10 10 mg Once a day 1 tablet Procedures Procedure Coding System Code Date Office Visit, Est Pt., Level 3 CPT-4 89852 January 14, 2016 [facility] VISIT ESTABLISHED PATIENT CPT-4 G0467 January 14, 2016 Vital Signs Date/Time: January 14, 2016 Cardiac Monitoring Heart Rate 82 bpm Weight 267.0 lbs Height 66 in Blood Pressure Diastolic 78 mmHg Blood Pressure Systolic 133 mmHg Results No Known Results Summary Purpose eClinicalWorks Submission
--- OUTSIDE RECORDS SUMMARY | 2017-09-21 08:55 | XMS REPORT ---
Author STEPHAN Yoon [facility] eClinicalWorks Address Unknown Phone Unavailable Care Team Providers Care Generator Man Name Role Phone STEPHAN CORDERO CP Unavailable [...] Date End Date Status Dosage Zolpidem Tartrate [facility] [address]-05 10 MG Orally Once a day 1 tablet at bedtime Results No Known Results Summary Purpose eClinicalWorks Submission
--- OUTSIDE RECORDS SUMMARY | 2017-09-21 08:55 | XMS REPORT ---
Author Author STEPHAN CORDERO Organization [facility] Address [address] [place] [address] Care Team Providers Care Mission Commander Name Role Phone GIL STEPHAN Unavailable PROBLEMS Type Condition ICD9-CM Code QEY26-JP Code Onset Dates Condition Status SNOMED Code Problem Hypercholesteremia E78.0 Active 48724633 Problem Arthritis M19.90 Active 8312939 Problem Hyperparathyroidism E21.3 Active 11222114 Problem Primary insomnia F51.01 Active 1829460 Problem Myalgia M79.1 Active 22751558 Problem Chronic kidney disease, stage 4 (severe) N18.4 Active 632182149 Problem BPV (benign positional vertigo), bilateral H81.13 Active 373544872 Problem Corns L84 Active 536628298 Problem Mood disorder F39 Active 39512791 Problem 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 Active 07547114 Problem 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
--- OUTSIDE RECORDS SUMMARY | 2017-09-21 08:55 | XMS REPORT ---
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
--- OUTSIDE RECORDS SUMMARY | 2017-09-21 08:55 | XMS REPORT ---
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 Active 06713209 Problem Myalgia M79.1 Active 60591378 Problem Mood disorder F39 Active 63972980 Problem 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 47458394 Problem Corns L84 Active 082636338 ALLERGIES Substance Reaction Event Type Date Status Ibuprofen no anti inflammatories Drug Allergy Jun, Active Cymbalta nausea and vomiting Drug Allergy Jun, Active Clonidine HCl blurry vision/weakness Drug Allergy Jun, Active SOCIAL HISTORY No smoking Hx information available PLAN OF CARE Activity Details Follow Up annually for preventive care, sooner for chronic health maintenance Reason: VITAL SIGNS Height 66 in 2016-07-03 Weight 268.5 lbs 2016-07-03 Temperature 97.7 degrees Fahrenheit 2016-07-03 Heart Rate 72 bpm 2016-07-03 Respiratory Rate 20 2016-07-03 BMI 43.33 kg/m2 2016-07-03 Blood pressure systolic 126 mmHg 2016-07-03 Blood pressure diastolic 80 mmHg 2016-07-03 MEDICATIONS Medication Instructions Dosage Frequency Start Date End Date Duration Status Lisinopril 10 mg 1 tablet 24h 30 Active Omeprazole 40 mg 1 capsule 24h 30 Active Multivital [place] Active Chlorzoxazone 500 MG 1 tablet 12h Active [place] 10-325 MG Orally 3 times a day 1 tablet as needed 8h Jun, Active Calcium 500 MG Orally 3 times a day 1 tablet with meals 8h Active Fluticasone Propionate 50 MCG/ACT Nasally Once a day 1 spray in each nostril 24h Feb, Active Cetirizine HCl 10 mg Orally Once a day 1 tablet 24h Feb, Aug, 30 day(s) Active Vitamin B-12 1000 MCG Sublingual Once a day 1 tablet under the tongue and allow to dissolve 24h Active Voltaren by topical route Dec, Active Zolpidem Tartrate 10 mg Orally Once a day 1 tablet at bedtime 24h Active RESULTS Name Result Date Reference Range [employer]IT[employer] 2016-07-03 PROCEDURES Procedure Date Ordered Related Diagnosis Body Site SINGLE IMMUNIZATION ADMIN Jul 03, 2016 INIT PREV PE LTD DUR 1ST 12 MOS MCR Jul 03, 2016 No Charge Jul 03, 2016 THER/PROPH/DIAG INJ, SC/IM Jul 03, 2016 B12, VITAMIN (UP TO 1000 MCG) Jul 03, 2016 FLUZONE HIGH DOSE 65 AND UP 2015Jul 03, 2016 ANNUAL WELLNESS VST; PPS SUBSQT VST Jul 03, 2016 ANNUAL WELLNES VST; PERSNL PPS INIT Jul 03, 2016 Office Visit, Est Pt., Level 3 Jul 03, 2016 [facility] VISIT ESTABLISHED PATIENT Jul 03, 2016 IMMUNIZATIONS Vaccine Route Administration Date Status FLUZONE HIGH DOSE 65 AND UP 2015 IM Intramuscular Jul 03, 2016 Administered B12, VITAMIN (UP TO 1000 MCG) IM Intramuscular Jul 03, 2016 Administered
--- OUTSIDE RECORDS SUMMARY | 2017-09-21 08:55 | XMS REPORT ---
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 Active 87570929 Problem Myalgia M79.1 Active 28166123 Problem Mood disorder F39 Active 60883032 Problem 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 25659912 Problem Corns L84 Active 631862876 ALLERGIES Unknown Allergies SOCIAL HISTORY No smoking Hx information available PLAN OF CARE VITAL SIGNS MEDICATIONS Unknown Medications RESULTS Name Result Date Reference Range CBC 2016-07-23 WBC 6.6 3.4-10.8 RBC 4.81 3.77-5.28 Hemoglobin 13.4 11.1-15.9 Hematocrit 41.8 34.0-46.6 MCV 87 79-97 MCH 27.9 26.6-33.0 MCHC 32.1 31.5-35.7 RDW 14.2 12.3-15.4 Platelets 278 150-379 Neutrophils 68 Lymphs 26 Monocytes 5 Eos 1 Basos 0 Neutrophils (Absolute) 4.6 1.4-7.0 Lymphs (Absolute) 1.7 0.7-3.1 Monocytes(Absolute) 0.3 0.1-0.9 Eos (Absolute) 0.1 0.0-0.4 Baso (Absolute) 0.0 0.0-0.2 Immature Granulocytes 0 Immature Grans (Abs) 0.0 0.0-0.1 PTH (INTACT) 2016-07-23 PTH, Intact 76 15-65 RENAL PROFILE 2016-07-23 Glucose, Serum 93 65-99 BUN 24 8-27 Creatinine, Serum 1.07 0.57-1.00 eGFR If NonAfricn Am 54 >59 eGFR If Africn Am 63 >59 BUN/Creatinine Ratio 22 11-26 Sodium, Serum 141 134-144 Potassium, Serum 4.5 3.5-5.2 Chloride, Serum 102 96-106 Carbon Dioxide, Total 23 18-29 Calcium, Serum 9.0 8.7-10.3 Phosphorus, Serum 2.7 2.5-4.5 Albumin, Serum 4.3 3.6-4.8 PROCEDURES Procedure Date Ordered Related Diagnosis Body Site VENIPUNCT, ROUTINE* Jul 23, 2016 IMMUNIZATIONS No Known Immunizations
--- OUTSIDE RECORDS SUMMARY | 2017-09-21 08:55 | XMS REPORT ---
Author STEPHAN Yono Organization eClinicalWorks Address Unknown Phone Unavailable Care Team Providers Care Client Relations Representative Name Role Phone STEPHAN CORDERO CP Unavailable [...]
--- OUTSIDE RECORDS SUMMARY | 2017-09-21 08:55 | XMS REPORT ---
Author STEPHAN Yoon Organization [employer]ClinicalWorks Address Unknown Phone Unavailable Care Team Providers Care Orthopaedic General Name Role Phone STEPHAN CORDERO CP Unavailable [...] Start Date End Date Status Dosage Jarret [facility] [address]-55 10-325 MG Orally 3 times a day November 07, 2014 1 tablet as needed Results No Known Results Summary Purpose eClinicalWorks Submission
--- OUTSIDE RECORDS SUMMARY | 2017-09-21 08:55 | XMS REPORT ---
Author Author STEPHAN CORDERO Organization [facility] Address [address] [place] [address] Care Team Providers Care Sliver Former Name Role Phone GIL STEPHAN Unavailable PROBLEMS Type Condition ICD9-CM Code FSJ36-LQ Code Onset Dates Condition Status SNOMED Code Problem Hypercholesteremia E78.0 Active 64018577 Problem Arthritis M19.90 Active 8388295 Problem Hyperparathyroidism E21.3 Active 78618209 Problem Primary insomnia F51.01 Active 2055498 Problem Myalgia M79.1 Active 93962296 Problem Chronic kidney disease, stage 4 (severe) N18.4 Active 016240526 Problem BPV (benign positional vertigo), bilateral H81.13 Active 276094504 Problem Corns L84 Active 606530646 Problem Mood disorder F39 Active 39854694 Problem 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
--- OUTSIDE RECORDS SUMMARY | 2017-09-21 08:55 | XMS REPORT ---
Author Author STEPHAN CORDERO Organization [facility] Address [address] [place] [address] Care Team Providers Care Securities Broker Name Role Phone GIL STEPHAN Unavailable PROBLEMS Type Condition ICD9-CM Code JIZ98-KA Code Onset Dates Condition Status SNOMED Code Problem Hypercholesteremia E78.0 Active 61481598 Problem Arthritis M19.90 Active 9764777 Problem Hyperparathyroidism E21.3 Active 57040980 Problem Primary insomnia F51.01 Active 5531937 Problem Myalgia M79.1 Active 92382793 Problem Chronic kidney disease, stage 4 (severe) N18.4 Active 642325023 Problem BPV (benign positional vertigo), bilateral H81.13 Active 146980247 Problem Corns L84 Active 567614529 Problem Mood disorder F39 Active 08385258 Problem 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
--- OUTSIDE RECORDS SUMMARY | 2017-09-21 08:55 | XMS REPORT ---
Author Author STEPHAN CORDERO Organization [facility] Address [address] [place] [address] Care Team Providers Care Audio Recording Engineer Name Role Phone STEPHAN CORDERO Unavailable PROBLEMS Type Condition ICD9-CM Code HZE77-VX Code Onset Dates Condition Status SNOMED Code Problem Hypercholesteremia E78.0 Active 60442009 Problem Arthritis M19.90 Active 2618601 Problem Hyperparathyroidism E21.3 Active 98344103 Problem Primary insomnia F51.01 Active 2797405 Problem Myalgia M79.1 Active 78031510 Problem Chronic kidney disease, stage 4 (severe) N18.4 Active 856700752 Problem BPV (benign positional vertigo), bilateral H81.13 Active 418765231 Problem Corns L84 Active 314897399 Problem Mood disorder F39 Active 00475341 Problem 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
--- OUTSIDE RECORDS SUMMARY | 2017-09-21 08:56 | XMS REPORT ---
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 Active 06020909 Problem Myalgia M79.1 Active 89950022 Problem Mood disorder F39 Active 77876859 Problem 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 83390791 Problem Corns L84 Active 607018508 ALLERGIES Substance Reaction Event Type Date Status Ibuprofen no anti inflammatories Drug Allergy Jul, Active Cymbalta nausea and vomiting Drug Allergy Jul, Active Clonidine HCl blurry vision/weakness Drug Allergy Jul, Active SOCIAL HISTORY Never Assessed PLAN OF CARE VITAL SIGNS Height 66 in 2016-08-22 Temperature 97.6 degrees Fahrenheit 2016-08-22 Heart Rate 86 bpm 2016-08-22 Respiratory Rate 20 2016-08-22 Blood pressure systolic 112 mmHg 2016-08-22 Blood pressure diastolic 78 mmHg 2016-08-22 MEDICATIONS Medication Instructions Dosage Frequency Start Date End Date Duration Status Multivital [place] Active Vitamin B-12 1000 MCG Sublingual Once a day 1 tablet under the tongue and allow to dissolve 24h Active Fluticasone Propionate 50 MCG/ACT Nasally Once a day 1 spray in each nostril 24h Feb, Active Chlorzoxazone 500 MG 1 tablet 12h Active Levothyroxine Sodium 25 MCG Orally Once a day 1 tablet on an empty stomach in the morning 24h Active Guaifenesin 400 mg Orally every 4 hrs 1 tablet as needed 4h Jul, Active Calcium 500 MG Orally 3 times a day 1 tablet with meals 8h Active Lisinopril 10 mg 1 tablet 24h 30 Active Cetirizine HCl 10 mg Orally Once a day 1 tablet 24h 19 Feb, 2016 Aug, 30 day(s) Active Omeprazole 40 mg 1 capsule 24h 30 Active Zolpidem Tartrate 10 MG Orally Once a day 1 tablet at bedtime 24h 28 days Active Hydrocodone-Acetaminophen 10-325 MG Orally 3 times a day 1 tablet as needed 8h 10 Jul, 2016 Active RESULTS No Results PROCEDURES Procedure Date Ordered Result Body Site [facility] VIS[facility] ESTABLISHED PATIENT Aug 22, 2016 THER/PROPH/DIAG INJ, SC/IM Aug 22, 2016 B12, VITAMIN (UP TO 1000 MCG) Aug 22, 2016 IMMUNIZATIONS Vaccine Route Administration Date Status B12, VITAMIN (UP TO 1000 MCG) SC Subcutaneous Aug 22, 2016 Administered MEDICAL (GENERAL) HISTORY Type Description Date Medical History hypertension Medical History acid reflux Medical History osteoporosis Medical History Arthritis Medical History fibromyalgia Surgical History cholecystectomy Surgical History gastric bypass Surgical History orthopedic surgery-left and right foot Surgical History arthroscopic knee surgery-left Surgical History Left knee meniscus repair 2009 Surgical History half of thyroid removed Jun 2016 Hospitalization History Hospitalization for surgery only
--- OUTSIDE RECORDS SUMMARY | 2017-09-21 08:56 | XMS REPORT ---
Author Author STEPHAN CORDERO Organization [facility] Address [address] [place] [address] Care Team Providers Care Process Designer Name Role Phone GIL STEPHAN Unavailable PROBLEMS Type Condition ICD9-CM Code [id number] Code Onset Dates Condition Status SNOMED Code Problem Hypercholesteremia E78.0 Active 41930498 Problem Arthritis M19.90 Active 8369152 Problem Hyperparathyroidism E21.3 Active 45966234 Problem Primary insomnia F51.01 Active 7076417 Problem Myalgia M79.1 Active 93666223 Problem Chronic kidney disease, stage 4 (severe) N18.4 Active 956197074 Problem BPV (benign positional vertigo), bilateral H81.13 Active 742272381 Problem Corns L84 Active 857571835 Problem Mood disorder F39 Active 32541127 Problem 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
--- OUTSIDE RECORDS SUMMARY | 2017-09-21 08:56 | XMS REPORT ---
Author Author STEPHAN CORDERO Organization [facility] Address [address] [place] [address] Care Team Providers Care Morning Nanny Name Role Phone GIL STEPHAN Unavailable PROBLEMS Type Condition ICD9-CM Code [id number] Code Onset Dates Condition Status SNOMED Code Problem Hypercholesteremia E78.0 Active 67727293 Problem Arthritis M19.90 Active 7079242 Problem Hyperparathyroidism E21.3 Active 36925858 Problem Primary insomnia F51.01 Active 1079059 Problem Myalgia M79.1 Active 47184389 Problem Chronic kidney disease, stage 4 (severe) N18.4 Active 601679864 Problem BPV (benign positional vertigo), bilateral H81.13 Active 587079679 Problem Corns L84 Active 171731014 Problem Mood disorder F39 Active 22029603 Problem 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 Active 41761289 Problem 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
--- OUTSIDE RECORDS SUMMARY | 2017-09-21 08:56 | XMS REPORT ---
Author Author STEPHAN CORDERO [facility] Address [address] [place] [address] Care Team Providers Care Field Sales Trainer Name Role Phone GIL STEPHAN Unavailable PROBLEMS Type Condition ICD9-CM Code [id number] Code Onset Dates Condition Status SNOMED Code Problem Hypercholesteremia E78.0 Active 36414258 Problem Arthritis M19.90 Active 5187334 Problem Hyperparathyroidism E21.3 Active 82321674 Problem Primary insomnia F51.01 Active 6380965 Problem BPV (benign positional vertigo), bilateral H81.13 Active 189499608 Problem 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 Active 94879250 Problem Myalgia M79.1 Active 92828483 Problem Mood disorder F39 Active 44994273 Problem 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 19484708 Problem Corns L84 Active 457310622 ALLERGIES No Information SOCIAL HISTORY Never Assessed PLAN OF CARE VITAL SIGNS MEDICATIONS Medication Instructions Dosage Frequency Start Date End Date Duration Status Hydrocodone-Acetaminophen 10-325 MG Orally 3 times a day 1 tablet as needed 8h 10 Jul, 2016 Active RESULTS No Results PROCEDURES No Known procedures IMMUNIZATIONS No Known Immunizations MEDICAL (GENERAL) HISTORY Type Description Date Medical History hypertension Medical History acid reflux Medical History osteoporosis Medical History Arthritis Medical History fibromyalgia Surgical History cholecystectomy 1969' Surgical History gastric bypass 1969' Surgical History orthopedic surgery-left and right foot Surgical History arthroscopic knee surgery-left Surgical History Left knee meniscus repair 2009 Surgical History half of thyroid removed Jun 2016 Hospitalization History Hospitalization for surgery only
--- OUTSIDE RECORDS SUMMARY | 2017-09-21 08:56 | XMS REPORT ---
Author STEPHAN Yoon Organization [employer] Address Unknown Phone Unavailable Care Team Providers Care Strip Stamp Straightener Name Role Phone STEPHAN CORDERO CP Unavailable [...] Instructions Start Date End Date Status Dosage Vitamin B-12 [facility] [address] 1000 MCG Sublingual Once a day 1 tablet under the tongue and allow to dissolve Lisinopril [facility] [address]-99 10 mg Once a day 1 tablet [place] [facility] [address]-61 10-325 MG Orally 3 times a day November 07, 2014 1 tablet as needed Cholecalciferol [facility] [address] UNIT Orally 1 capsule monthly Calcium [facility] [address]-43 500 MG Orally 3 times a day 1 tablet with meals Vitamin D [facility] [address]-07 1000 UNIT Orally Once a day 1 tablet Cetirizine HCl [facility] [address]-77 10 mg Orally Once a day Mar 17, 2016 September 13, 2016 1 tablet Omeprazole [facility] [address]-59 40 mg Once a day 1 capsule Fluticasone Propionate [facility] [address]-55 50 MCG/ACT Nasally Once a day Mar 17, 2016 1 spray in each nostril Zolpidem Tartrate [facility] [address]-43 10 mg Orally Once a day 1 tablet at bedtime Voltaren [facility] [address]-94 January 18, 2014 by topical route Cetirizine HCl [facility] [address]-74 10 mg Orally Once a day 1 tablet Multivital [place] [facility] [address] Orally not defined Chlorzoxazone [facility] [address]-65 500 MG 2 times a day 1 tablet Procedures Procedure Coding System Code Date Office Visit, Est Pt., Level 3 CPT-4 16420 May 02, 2016 [facility] VISIT ESTABLISHED PATIENT CPT-4 G0467 May 02, 2016 Vital Signs Date/Time: May 02, 2016 Cardiac Monitoring Heart Rate 80 bpm Weight 268.0 lbs Height 66 in BMI 43.25 Index Blood Pressure Diastolic 72 mmHg Blood Pressure Systolic 138 mmHg Results Name Result Date Reference Range Unit Abnormality Flag CT Scan : Neck Soft Tissue w/o & w/ Contrast Summary Purpose [employer] Submission
--- OUTSIDE RECORDS SUMMARY | 2017-09-21 08:56 | XMS REPORT ---
Author STEPHAN Yoon [facility] [employer] Address Unknown Phone Unavailable Care Team Providers Care Director Of Home Economics Name Role Phone STEPHAN CORDERO CP Unavailable [...]
--- OUTSIDE RECORDS SUMMARY | 2017-09-21 08:56 | XMS REPORT ---
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
--- OUTSIDE RECORDS SUMMARY | 2017-09-21 08:56 | XMS REPORT ---
Author STEPHAN Yoon Organization [employer] Address Unknown Phone Unavailable Care Team Providers Care Qc Tech Name Role Phone STEPHAN CORDERO CP Unavailable [...] Start Date End Date Status Dosage [facility] [address]-37 10-325 MG Orally 3 times a day November 07, 2014 1 tablet as needed Results No Known Results Summary Purpose [employer] Submission
--- OUTSIDE RECORDS SUMMARY | 2017-09-21 08:56 | XMS REPORT ---
Author STEPHAN Yoon [facility] [employer] Address Unknown Phone Unavailable Care Team Providers Care Delineator Name Role Phone STEPHAN CORDERO CP Unavailable [...] Instructions Start Date End Date Status Dosage Cetirizine HCl [facility] [address]-87 10 MG Orally Once a day 1 tablet Results No Known Results Summary Purpose [employer] Submission
--- OUTSIDE RECORDS SUMMARY | 2017-09-21 08:56 | XMS REPORT ---
Author STEPHAN Yoon Organization [employer] Address Unknown Phone Unavailable Care Team Providers Care Tassel Making Machine Operator Name Role Phone STEPHAN CORDERO CP [...] Instructions Start Date End Date Status Dosage PredniSONE [facility] [address]-94 20 mg Orally Once a day Apr 24, 2016 Apr 29, 2016 2 tablets Results No Known Results Summary Purpose [employer] Submission
--- OUTSIDE RECORDS SUMMARY | 2017-09-21 08:56 | XMS REPORT ---
Author Author STEPHAN CORDERO Organization [facility] Address [address] [place] [address] Care Team Providers Care Teleprinter Name Role Phone STEPHAN CORDERO Unavailable PROBLEMS Type Condition ICD9-CM Code FNT37-RN Code Onset Dates Condition Status SNOMED Code Problem Hypercholesteremia E78.0 Active 29484713 Problem Arthritis M19.90 Active 0287496 Problem Hyperparathyroidism E21.3 Active 28636969 Problem Primary insomnia F51.01 Active 0675285 Problem BPV (benign positional vertigo), bilateral H81.13 Active 487880442 Problem 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 Active 24442420 Problem Myalgia M79.1 Active 30268988 Problem Mood disorder F39 Active 12041911 Problem 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 Calcium, Urine 24hr <15.4 100.0-300.0 PROCEDURES Procedure Date Ordered Related Diagnosis Body Site LAB NOT BILLED BY [facility] Jul 07, 2016 IMMUNIZATIONS No Known Immunizations
[2017-09-21] MEDS ORDERED: NS IV 500 ML 500 ML IV PRN (08:57)
[2017-09-21 09:00] VITALS: BP 123/72
--- NOTE | 2017-09-21 10:07 | Conscious Sedation/ASA ---
Conscious Sedation Pre-Proced Time Reviewed: 10:07 ASA Class: 2 Airway Mallampati Classification: ([place] appropriate class) I. II. III, IV Lungs Heart ASA score ASA 1: a normal healthy patient ASA 2: a patient with a mild systemic disease (mid diabetes, controlled hypertension, obesity ASA 3: a patient with a severe systemic disease that limits activity (angina , COPD, prior Myocardial infarction) ASA 4: a patient with an incapacitating disease that is a constant threat to life (CHF, renal failure) ASA 5: a moribund patient not expected to survive 24 hrs. (ruptured aneurysm) ASA 6: a declared brain patient whose organs are being harvested. For emergent operations, add the letter E after the classification Grade 2 Sedation Plan: Discussed options with patient/fam Note The patient is an appropriate candidate to undergo the planned procedure, sedation, and anesthesia. The patient immediately re-assessed prior to indication. LAXMI ROSS MD Sep 21, 2017 10:07 am
--- NOTE | 2017-09-21 10:07 | History & Physicial ---
History of Present Illness History of Present Illness Reason for visit/HPI for surveillance colonoscopy. Personal history of polyps and a family history of colon cancer in multiple first and second-degree relatives Date of Admission 09/21/17 Date Seen by Provider: Sep 21, 2017 Time Seen by Provider: 10:05 I consulted on this patient on 09/21/17 10:05 Attending Physician Laxmi Ross MD Admitting Physician No,Local Physician Consult Allergies and Home Medications Allergies Coded Allergies: duloxetine (Unverified Adverse Reaction, Intermediate, NAUSEA, 09/14/17) REPORTS SIGNIFICANT N/V Home Medications Calcium Carbonate 600 Mg Tablet, 1,200 MG PO DAILY, (Reported) Cetirizine HCl 10 Mg Tablet, 10 MG PO HS, (Reported) Chlorzoxazone 500 Mg Tablet, 500 MG PO BID, (Reported) Fluticasone Propionate 9.9 Ml [place].susp, 1 SPRAY NS DAILY, (Reported) Hydrocodone/Acetaminophen 1 Each Tablet, 1 EACH PO TID PRN for PAIN-MODERATE, ( Reported) Levothyroxine Sodium 50 Mcg Tablet, 50 MCG PO DAILY, (Reported) Lisinopril 5 Mg Tablet, 5 MG PO DAILY, (Reported) Meclizine HCl 25 Mg Tab.chew, 25 MG PO TID, (Reported) Multivitamin 1 Each Tablet, 1 EACH PO DAILY, (Reported) Omeprazole 40 Mg Capsule.dr, 40 MG PO DAILY, (Reported) Sodium Bicarbonate 650 Mg Tablet, 1,300 MG PO BID, (Reported) Zolpidem Tartrate 10 Mg Tablet, 10 MG PO HS, (Reported) Patient Home Medication List Home Medication List Reviewed: Yes Past Tzayzfj-Zndjun-Wxhsui Hx Patient Social History Marrital Status: Employed/Student: retired Alcohol Use: Denies Use Recreational Drug Use: No Smoking Status: Never a Smoker Recent Foreign Travel: No Contact w/other who traveled: No Recent Hopitalizations: No Recent Infectious Disease Expo: No Immunizations Up To Date Tetanus Booster (TDap): Unknown Pediatric: No Date of Pneumonia Vaccine: Apr 07, 2016 Date of Influenza Vaccine: Jun 29, 2017 Seasonal Allergies Seasonal Allergies: Yes Surgeries Yes Thyroidectomy Respiratory No Cardiovascular Yes Hypertension Neurological Vertigo Reproductive System Hx Reproductive Disorders: No Sexually Transmitted Disease: No HIV/AIDS: No Female Reproductive Disorders: Denies Gastrointestinal Yes Gastroesophageal Reflux, Chronic Constipation, Chronic Diarrhea, Polyps Musculoskeletal Yes Arthritis, Fibromyalgia, Chronic Back Pain Endocrine History of Endocrine Disorders: No HEENT Loss of Vision: Bilateral Hearing Impairment: Denies Blood Transfusions Adverse Reaction to a Blood Tr: No (N/A) Family Medical History Family Hx: Colon cancer Constitutional: no symptoms reported EENTM: no symptoms reported Respiratory: no symptoms reported Cardiovascular: no symptoms reported Gastrointestinal: abdominal pain (RUQ) Genitourinary: no symptoms reported Musculoskeletal: no symptoms reported Skin: no symptoms reported Psychiatric/Neurological: No Symptoms Reported Physical Exam Vital Signs Vital Signs - First Documented 09/21/17 09:00 Temp 97.7 Pulse 94 Resp 16 B/P (MAP) 123/72 (89) Pulse Ox 98 O2 Delivery Room Air Capillary Refill : General Appearance: No Apparent Distress Neck: Normal Inspection Respiratory: Lungs Clear Cardiovascular: Regular Rate, Rhythm Gastrointestinal: Non Tender, Soft Rectal: Deferred Extremity: Normal Inspection Neurologic/Psychiatric: Alert, Oriented x3 Skin: Warm/Dry Assessment/Plan Assessment and Plan lady with a personal history of polyps and a family history of colon cancer for colonoscopy Problems: Admission Diagnosis Admission Status: Other (Outpt Proc) LAXMI ROSS MD Sep 21, 2017 10:07 am
[2017-09-21] MEDS ORDERED: fentaNYL INJECTION 100 MCG/2 ML AMP ONE (11:05)
[2017-09-21] MEDS ORDERED: MIDAZOLAM 2 MG/2 ML (VERSED) VIAL ONE ×3 (11:05)
[2017-09-21] MEDS: fentaNYL INJECTION 100 MCG/2 ML AMP IVP PRN ×2 (11:15→11:30)
[2017-09-21] MEDS: MIDAZOLAM 2 MG/2 ML (VERSED) VIAL IVP PRN ×3 (11:17→11:33)
--- NOTE | 2017-09-21 11:43 | Endo Procedure Record ---
Endo Procedure Report Date of Procedure Last Colonoscopy: Yes (UNSURE OF DATE/ THINKS 3 YRS AGO ) Sep 21, 2017 Surgeon (s) LAXMI ROSS MD Post Procedure/Op Diagnosis Very few diverticula Procedure Performed Colonoscopy to cecum Description of Procedure Anesthesia Type: Conscious Sedation Specimen(s) collected/removed none Description of the Procedure Indication for the procedure: This lady has a personal history of polyps and a strong family history of colon cancer involving first and second-degree relatives. She came in for surveillance colonoscopy. Informed consent was obtained after reviewing the procedure in detail. Description of the procedure: She was placed in left lateral decubitus position and her vital signs were monitored. Conscious sedation was achieved using Versed and fentanyl. Digital rectal examination was unremarkable. The colonoscope was then introduced into the rectum and advanced all the way up to the cecum The scope was then withdrawn slowly and the mucosa examined in a systematic fashion. Findings: Very few sigmoid diverticulae. No polyps were found She tolerated the procedure well and was taken back to the nursing area in a stable condition. Impression: Surveillance colonoscopy. No polyps. Strong family history. Recommend repeating in 3 years. Copies To: TERRI CEE MD, XAVIER M MD Sep 21, 2017 11:43 am
--- NOTE | 2017-09-21 11:44 | Discharge Inst-Simple/Standard ---
Discharge Inst-Standard Discharge Medications New, Converted or Re-Newed RX: Other Patient Instructions/Follow Up Plan of Care/Instructions/FU: Repeat colonoscopy in 3 years Activity as Tolerated: Yes Discharge Diet: No Restrictions LAXMI ROSS MD Sep 21, 2017 11:44 am
[2017-09-21 11:50] VITALS: BP 120/78
[2017-09-21 12:15] VITALS: BP 142/78
[2017-09-21 12:35] VITALS: BP 142/78
== END 2017-09-21 12:38 | disposition home or self-care (01) ==
LOC: ENDO 08:46
PROVIDERS: ATTEND Surgery
DX: K57.30 Diverticulosis of large intestine without perforation or abscess without bleeding (principal); Z86.010 Personal history of colon polyps; Z80.0 Family history of malignant neoplasm of digestive organs; I10 Essential (primary) hypertension; M79.7 Fibromyalgia; K21.9 Gastro-esophageal reflux disease without esophagitis; K59.09 Other constipation; Z88.8 Allergy status to other drugs, medicaments and biological substances; Z79.899 Other long term (current) drug therapy

== ENCOUNTER → 2018-08-25 | Outpatient (CLI) | payer MEDICARE ==
--- NOTE | 2018-08-25 09:15 | Diagnostic Imaging Report ---
PROCEDURE: MRI lumbar spine. TECHNIQUE: Multiplanar, multisequence MRI of the lumbar spine was performed without contrast. INDICATION: Low back pain. Lumbar spinal curvature and alignment are unremarkable. Vertebral body heights and disc spaces are maintained. Conus medullaris has a normal appearance at the L1 level. There is mild annular bulging of the L4-L5 disc with mild associated ligamentum flavum hypertrophy. This results in mild narrowing of the neural foramina, greater on the left. There are bilateral L5-S1 facet joint effusions. IMPRESSION: Disc bulging at L4-L5 disc results in mild neural foraminal stenosis, greater on the left. Note is also made of L2-L3 through L5-S1 facet joint effusions. Dictated by: Dictated on workstation # [id number]
== END ==
LOC: RAD 08:17
PROVIDERS: ATTEND Nurse Practitioner Community Health
DX: M51.26 Other intervertebral disc displacement, lumbar region (principal); M48.061 Spinal stenosis, lumbar region without neurogenic claudication
CPT/HCPCS: 72148

== ENCOUNTER → 2019-04-05 | Outpatient (CLI) | payer MEDICARE ==
--- NOTE | 2019-04-05 15:02 | Diagnostic Imaging Report ---
INDICATION: Screening for osteoporosis. COMPARISON: 11/22/2015. FINDINGS: The bone mineral density of the hips and spine was measured. This study was compared to the prior exam of 11/22/2015. The T-score for the spine is -1.7. On the prior exam, the T-score was -1.4. These values are within the range of osteopenia. The total T-score for the left hip is -0.8. This is unchanged when compared to the prior exam and remains within normal limits. The total T-score for the right hip is -1.3. This has decreased from the prior exam when the T-score was -0.9. The T-score for the right hip now indicates mild osteopenia. The T-score for each femoral neck is -2.1. On the prior study, the T-score for the left femoral neck was -2.0 and for the right femoral neck -1.6. These values remain in the range of osteopenia. AP Spine L1-L4: [BMD (g/cm2): 0.996] [T-Score: -1.7] [Z-Score: -1.2] [BMD Previous: 1.030] [BMD % Change: -3.3] LT Hip Neck: [BMD (g/cm2): 0.748] [T-Score: -2.1] [Z-Score: -1.2] LT Hip Total: [BMD (g/cm2):0.912] [T-Score:-0.8] [Z-Score: -0.2] [BMD Previous: 0.905] [BMD % Change: 0.8] RT Hip Neck: [BMD (g/cm2):0.740] [T-Score:-2.1] [Z-Score:-1.2] RT Hip Total: [BMD (g/cm2):0.846] [T-score:-1.3] [Z-Score:-0.7] [BMD Previous:0.893] [BMD % Change:-5.3] *Indicates significant change from prior examination based on 95% confidence level. World Health Organization criteria for BMD interpretation classify patients as Normal (T-score at or above -1.0), Osteopenic (T-score between -1.0 and -2.5) or Osteoporotic (T-score at or below -2.5). LIMITATIONS AND MODIFICATION: None. FRACTURE RISK (FRAX SCORE): The ten year probability of (%): Major Osteoporotic Fracture: [N/A] Hip Fracture: [N/A] IMPRESSION: 1. There has been a slight decrease in the bone mineral density of the spine and hips in the interval since the prior exam. However, all the T-scores remain within the range of osteopenia. 2. See below National Osteoporosis Foundation guidelines on when to potentially initiate pharmacologic therapy. Based on the National Osteoporosis Foundation Guidelines, pharmacologic treatment should be initiated in any of the following, unless clinical conditions suggest otherwise: * Any patient with prior fragility fracture of the hip or vertebrae. A spine fracture indicates 5X risk for subsequent spine fracture and 2X risk for subsequent hip fracture. * Osteoporosis (T-score <-2.5). * Postmenopausal women and men age 50 and older with low bone mass/osteopenia (T-score between -1.0 and -2.5) by DXA and 10-year major osteoporotic fracture greater than 20% or a 10-year probability of hip fracture greater than 3%. These fracture risks are supplied above in the FRAX score, if applicable. * Clinician judgement and/or patient preferences may indicate treatment for people with 10-year fracture probabilities above or below these levels. Dictated by: Dictated on workstation # [id number]
== END ==
LOC: RAD 12:39
PROVIDERS: ATTEND Internal Medicine Endocrinology, Diabetes & Metabolism
DX: Z13.820 Encounter for screening for osteoporosis (principal); M85.80 Other specified disorders of bone density and structure, unspecified site; E21.3 Hyperparathyroidism, unspecified
CPT/HCPCS: 77080

== ENCOUNTER → 2019-05-09 | Outpatient (CLI) | payer MEDICARE ==
--- NOTE | 2019-05-09 12:08 | Diagnostic Imaging Report ---
INDICATION: Routine screening. Comparison is made with prior mammogram from 10/26/2013 and 08/10/2012. 2-D and 3-D bilateral screening mammography was performed with CAD. Scattered fibroglandular densities are identified bilaterally. The overall parenchymal pattern is stable. No mass or malignant appearing microcalcifications are seen. The axillae are unremarkable. IMPRESSION: BI-RADS Category 1 No mammographic features suspicious for malignancy are identified. ACR BI-RADS Category 1: Negative. Result letter will be mailed to the patient. Note: At least 10% of breast cancer is not imaged by mammography. Dictated by: Dictated on workstation # [id number]
== END ==
LOC: RAD 10:39
PROVIDERS: ATTEND Nurse Practitioner Family
DX: Z12.31 Encounter for screening mammogram for malignant neoplasm of breast (principal)
CPT/HCPCS: 77067

== ENCOUNTER → 2019-05-13 | Outpatient (CLI) | payer MEDICARE ==
[2019-05-13 08:39] LABS: HEMOGLOBIN 12.4 G/DL (11.5-16.0); MEAN PLATELET VOLUME 10.4 FL (7.4-10.4); RED CELL DISTRIBUTION WIDTH 13.5 % (10.0-14.5); WHITE BLOOD COUNT 6.5 10^3/uL (4.3-11.0)
[2019-05-13 08:40] LABS: BILIRUBIN,URINE NEGATIVE (NEGATIVE); CLARITY,URINE CLEAR; COLOR,URINE YELLOW; GLUCOSE, URINE (UA) NEGATIVE (NEGATIVE); KETONES,URINE NEGATIVE (NEGATIVE); LEUKOCYTE ESTERASE ,URINE 1+ (NEGATIVE); NITRITE,URINE NEGATIVE (NEGATIVE); PH,URINE 5.5 (5-9); PROTEIN,URINE NEGATIVE (NEGATIVE)
[2019-05-13 08:57] LABS: BACTERIA,URINE FEW /HPF; RBC,URINE RARE /HPF; WBC,URINE 25-50 /HPF
[2019-05-13 09:07] LABS: ALBUMIN 3.9 GM/DL (3.2-4.5); CALCIUM 8.9 MG/DL (8.5-10.1); CREATININE SERUM 1.29 MG/DL (0.60-1.30); POTASSIUM 4.3 MMOL/L (3.6-5.0); URIC ACID 6.4 MG/DL (2.6-7.2)
== END ==
LOC: LAB 08:22
PROVIDERS: ATTEND Internal Medicine Nephrology
DX: I12.9 Hypertensive chronic kidney disease with stage 1 through stage 4 chronic kidney disease, or unspecified chronic kidney disease (principal); N18.3 Chronic kidney disease, stage 3 (moderate); M19.90 Unspecified osteoarthritis, unspecified site; I95.1 Orthostatic hypotension; Z98.84 Bariatric surgery status
CPT/HCPCS: 36415; 80069; 81000; 82306; 82570; 83970; 84156; 84550; 85027; 87088

== ENCOUNTER → 2019-06-17 | Outpatient (CLI) | payer MEDICARE ==
[2019-06-17 10:10] LABS: CALCIUM 8.8 MG/DL (8.5-10.1); CREATININE SERUM 1.3 MG/DL (0.60-1.30); POTASSIUM 4.2 MMOL/L (3.6-5.0)
== END ==
LOC: LAB 09:31
PROVIDERS: ATTEND Internal Medicine Endocrinology, Diabetes & Metabolism
DX: E21.3 Hyperparathyroidism, unspecified (principal); E03.8 Other specified hypothyroidism; M85.80 Other specified disorders of bone density and structure, unspecified site
CPT/HCPCS: 36415; 80048; 82306; 83970

== ENCOUNTER → 2019-07-14 | Outpatient (CLI) | payer MEDICARE ==
[~2019-07-14] MED LIST changes: +OMEP40CA27 PO
--- NOTE | 2019-07-14 12:46 | Diagnostic Imaging Report ---
PROCEDURE: MRI left joint lower extremity without contrast. TECHNIQUE: Multiplanar, multisequence non contrast-enhanced MRI of the left lower extremity was accomplished. INDICATION: Left knee pain, prior fall. COMPARISON: None FINDINGS: Due to body habitus, the second alternate knee coil was used, and there is signal loss on the exam. No acute fracture is seen. Alignment appears normal. There is a small left knee joint effusion. The articular cartilage in the patellofemoral compartment demonstrates full-thickness cartilage loss in the patellofemoral compartment with underlying subcortical cystlike changes of the patella, particularly the median ridge. The medial compartment demonstrates high-grade cartilage loss as well. The lateral compartment demonstrates thinning of the articular cartilage. There is complex tearing of the medial meniscus, likely degenerative. The lateral meniscus appears to have a horizontal tear at the posterior horn and body as well. The anterior and posterior cruciate ligaments are intact. The medial collateral ligament is intact. The lateral collateral ligamentous complex appears intact. The extensor mechanism and the medial and lateral retinacula appear intact. The soft tissues about the knee demonstrate no other acute abnormality. IMPRESSION: 1. Complex, likely degenerative tearing of the medial meniscus. Horizontal tear of the lateral meniscus. 2. Tricompartmental cartilage loss, most pronounced in the patellofemoral and medial compartments. 3. Small left knee joint effusion. Dictated by: Dictated on workstation # [id number]
== END ==
LOC: RAD 10:01
PROVIDERS: ATTEND Nurse Practitioner Community Health
DX: M23.8X2 Other internal derangements of left knee (principal); M25.462 Effusion, left knee
CPT/HCPCS: 73721

== ENCOUNTER 2019-08-04 13:18 | Outpatient (RCR) | payer MEDICARE | END 2019-08-04 14:37 | disposition home or self-care (01) | PROVIDERS: ATTEND Nurse Practitioner | DX: M76.52 Patellar tendinitis, left knee (principal) ==

== ENCOUNTER → 2019-08-17 | Outpatient (CLI) | payer MEDICARE | LOC: LAB 12:34 | PROVIDERS: ATTEND Internal Medicine Endocrinology, Diabetes & Metabolism | DX: M85.80 Other specified disorders of bone density and structure, unspecified site (principal) | CPT/HCPCS: 36415; 82306 ==

== ENCOUNTER → 2020-01-06 | Outpatient (CLI) | payer MEDICARE ==
[~2020-01-06] MED LIST changes: +ACHYD1T PO; -HYDR-3820 PO; +NF-SODBICA PO; -SODI650T PO
[2020-01-06 09:54] LABS: BILIRUBIN,URINE NEGATIVE (NEGATIVE); CLARITY,URINE CLEAR; COLOR,URINE YELLOW; GLUCOSE, URINE (UA) NEGATIVE (NEGATIVE); KETONES,URINE NEGATIVE (NEGATIVE); LEUKOCYTE ESTERASE ,URINE 1+ (NEGATIVE); NITRITE,URINE NEGATIVE (NEGATIVE); PH,URINE 5.5 (5-9); PROTEIN,URINE NEGATIVE (NEGATIVE)
[2020-01-06 10:00] LABS: HEMOGLOBIN 12.6 G/DL (11.5-16.0); MEAN PLATELET VOLUME 10.1 FL (7.4-10.4); RED CELL DISTRIBUTION WIDTH 12.9 % (10.0-14.5); WHITE BLOOD COUNT 6.1 10^3/uL (4.3-11.0)
[2020-01-06 10:04] LABS: BACTERIA,URINE FEW /HPF; HYALINE CASTS, URINE 0-2 /LPF
[2020-01-06 10:19] LABS: CALCIUM 9.1 MG/DL (8.5-10.1); CREATININE SERUM 1.22 MG/DL (0.60-1.30); PHOSPHORUS 3.2 MG/DL (2.3-4.7); POTASSIUM 3.8 MMOL/L (3.6-5.0)
== END ==
LOC: LAB 09:40
PROVIDERS: ATTEND Internal Medicine Nephrology
DX: I12.9 Hypertensive chronic kidney disease with stage 1 through stage 4 chronic kidney disease, or unspecified chronic kidney disease (principal); N18.3 Chronic kidney disease, stage 3 (moderate); M19.90 Unspecified osteoarthritis, unspecified site; I95.1 Orthostatic hypotension; Z98.84 Bariatric surgery status
CPT/HCPCS: 36415; 80069; 81000; 82306; 82570; 83970; 84156; 85027; 87077; 87088; 87186

== ENCOUNTER 2020-01-23 05:32 | Outpatient (RCR) | payer MEDICARE ==
[~2020-01-23] VITALS: Ht 167 cm; Wt 115.7 kg
[~2020-01-23 05:32] MED LIST changes: -CALC600T12 PO; +CALC600T14 PO
[2020-01-23] MEDS ORDERED: TIZA4CAP8 PO (08:58)
[2020-01-23] MEDS ORDERED: MECL-149 PO (08:58)
[2020-01-23] MEDS ORDERED: ZOLP10TA PO (08:58)
[2020-01-23] MEDS ORDERED: CHOL500050 PO (08:58)
[2020-01-23 09:00] VITALS: BP 132/80
== END 2020-01-23 10:15 | disposition home or self-care (01) ==
LOC: PREOP 05:32
PROVIDERS: ATTEND Orthopaedic Surgery
DX: Z01.812 Encounter for preprocedural laboratory examination (principal); M23.204 Derangement of unspecified medial meniscus due to old tear or injury, left knee; M22.42 Chondromalacia patellae, left knee; Z20.828 Contact with and (suspected) exposure to other viral communicable diseases
CPT/HCPCS: 87081; U0002; 87635

== ENCOUNTER 2020-01-25 07:25 | Day surgery (SDC) | payer MEDICARE ==
--- NOTE | 2020-01-16 09:48 | HISTORY AND PHYSICAL ---
DATE OF SERVICE: This will be for outpatient surgery on 01/25/2020 for left knee arthroscopy. HISTORY OF PRESENT ILLNESS: The patient is a 71-year-old female with complaints of left knee pain. She has had anterior knee pain since she fell on her knee several years ago. She has tried injections without relief. She reports pain to the touch on her knee. She denies any appreciable medial knee pain. She denies radicular symptoms and denies paresthesias. Due to functional impairment and failure to improve with conservative measures, the patient elected to proceed with surgical intervention. REVIEW OF SYSTEMS: No chest pain, no shortness of breath, no dysuria. PAST MEDICAL HISTORY: Arthritis, DJD, back pain, obesity, hypercholesterolemia, chronic kidney disease, hyperglycemia, anemia, anxiety, depression, hypertension, hypothyroidism. PAST SURGICAL HISTORY: Gastric bypass, intestinal bypass, cholecystectomy, left knee arthroscopy, bilateral foot surgery, right foot surgery, . FAMILY HISTORY: Significant for bipolar disorder, Alzheimer's, diabetes type 2. PRIMARY CARE PROVIDER: [facility]. MEDICATIONS: [place], , Zyrtec, lisinopril, Tylenol, levothyroxine, acidophilus, meclizine, omeprazole, tizanidine. ALLERGIES: CLONIDINE, CYMBALTA, IBUPROFEN. SOCIAL HISTORY: The patient denies alcohol, tobacco use. RADIOGRAPHS: Reveal near complete loss of medial joint space with near complete loss of patellofemoral joint space without evidence of fracture or dislocation. PHYSICAL EXAMINATION: GENERAL: The patient is well developed, well-nourished, in no acute distress. HEENT: Normocephalic, atraumatic. Pupils are equal, round, reactive to light. Oropharynx is clear. NECK: Supple, no lymphadenopathy. LUNGS: Clear to auscultation bilaterally. HEART: Regular rate and rhythm. ABDOMEN: Soft, nontender, nondistended. EXTREMITIES: Left knee demonstrates pain with patellar loading with crepitus noted. She has moderate effusion. She is nontender over the medial joint line. She has no pain medially with Edson's. Range of motion is 0/0/130. She ambulates with an antalgic gait. IMPRESSION: Left knee chondromalacia with mechanical symptoms. PLAN: Her primary complaints are mechanical. She does not desire total knee arthroplasty. She understands that arthroscopy would help with her mechanical symptoms, will not cure her arthritic symptoms. We discussed risks, benefits, options, ramifications and recovery at length with. She understands and wishes to proceed. Job ID: [id number] DocumentID: [id number] Dictated Date: 01/16/2020 08:34:21 Floor Specialist Date: 01/16/2020 09:47:37 Dictated By: RIVER LYNN MD
[2020-01-25] VITALS (11 sets, daily range): BP systolic 100–140; BP diastolic 56–85
[~2020-01-25] VITALS: Ht 167.7 cm; Wt 115.9 kg
[~2020-01-25 07:25] MED LIST changes: +CHOL500050 PO; +MECL-149 PO; +TIZA4CAP8 PO; +ZOLP10TA PO
[2020-01-25] MEDS ORDERED: HYDROcodone/APAP 7.5 MG/325 MG (LORTAB, LORCET PLUS) TABLET PO PRN (07:30)
[2020-01-25] MEDS ORDERED: ceFAZolin INJECTION 1,000 MG in WATER (STERILE) FOR INJECTION 10 ML IV ONE (07:30)
--- OUTSIDE RECORDS SUMMARY | 2020-01-25 07:31 | XMS REPORT ---
Author Author Velma Javed Doctor Organization [facility] Address Unknown Phone Unavailable Care Team Providers Care Certified Real Estate Appraiser Name Role Phone Migration, Doctor Unavailable Unavailable PROBLEMS Type Condition ICD9-CM Code [id number] Code Onset Dates Condition S tatus SNOMED Code Problem Corns L84 Active 425192065 Problem Primary insomnia F51.01 Active 397 2004 Problem Hyperparathyroidism E21.3 Active 17378483 Problem Hypercholesteremia E78.0 Active 1 3368301 Problem Mood disorder F39 Active 803329 05 Problem Arthritis M19.90 Active 5597111 Problem 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 Active 09387678 Problem Myalgia M79.1 Active 53273190 Problem Chronic kidney disease, stage 4 (severe) N18.4 Active 353514239 Problem Primary osteoarthritis of left knee M17.12 Active [id number] Problem Irritable bowel syndrome with both constipation and diarrh ea K58.2 Active 46404853 Problem Other chronic pain G89.29 Active 8 7127417 Problem BPV (benign positional vertigo), bilateral H81.13 Active 536079797 Problem Hyperparathyroidism, unspecified E21.3 Active 19950716 Problem 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 Active 87000107 Problem Body mass index (BMI) of 40.0-44.9 in adult Z68.41 Active 968130305 Problem Unspecified kidney failure N19 Act chip 53453200 Problem 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 Active 772409692 Problem Unspecified inflammatory spo ndylopathy, sacral and sacrococcygeal region M46.98 Active 70844341 ALLERGIES No Information ENCOUNTERS Encounter Location Date Diagnosis [facility] [address] [facility] [id number] [address] [place] [id number] 08 Sep, 2019 Hyperparathyroidism, unspeci fied E21.3 [facility] [address] [facility] [id number] [address] [place] [phone] Aug, Hyperparathyroidism, unspeci fied E21.3 [place] [id number] [facility] [id number] [address] [place] [phone] 05 Aug, 2019 Pain in left knee M25.562 ; Other chronic pain G89.29 ; Unspecified inflammatory spondylopathy, sacral and sacrococcygeal region M46.98 ; Chronic kidney disease, stage 4 (severe) N18.4 and Hyperparathyroidism, unspecified E21.3 [place] [address] [address] [facility] [id number] [address] [place] [phone] 13 Jul, 2019 [place] [address] [address] [facility] [id number] [address] [place] [phone] Jul, Arthritis M19.90 [place] [address] [address] [facility] [id number] [address] [place] [phone] Jun, Knee pain, left M25.562 [place] [address] [address] [facility] [id number] [address] [place] [phone] May, Arthritis M19.90 [place] [address] [address] [place] [id number] [address] [place] [phone] Apr, Well woman exam without gyne cological exam Z00.00 and Screening for breast cancer Z12.39 [place] [address] [address] [facility] [id number] [address] [place] [phone] Mar, Arthritis M19.90 [place] [address] [facility] [id number] [address] [place] [phone] Mar, Arthritis M19.90 [place] [address] [facility] [id number] [address] [place] [phone] Mar, [place] [address] [address] [facility] [id number] [address] [place] [address] Mar, Arthritis M19.90 and Encount er for immunization Z23 [place] [address] [address] [facility] [id number] [address] [place] [phone] Feb, Arthritis M19.90 [place] [address] [address] [place] [id number] [address] [place] [phone] Feb, [facility] [address] [id number] [address] [place] [phone] Feb, Other specified disorders of bone density and structure, unspecified site M85.80 [facility] [address] [id number] [address] [place] [address] Jan, Arthritis M19.90 [facility] [address] [id number] [address] [place] [phone] Dec, Arthritis M19.90 [facility] [address] [id number] [address] [place] [phone] Nov, Inflammatory spondylopathy o f sacral region M46.98 [facility] [address] [id number] [address] [place] [phone] Nov, [facility] [address] [facility] [id number] [address] [place] [phone] Nov, Labyrinthitis of left ear H8 3.02 [facility] [address] [id number] [address] [place] [phone] 03 Nov, 2018 Arthritis M19.90 [facility] [address] [facility] [id number] [address] [place] [phone] 15 Sep, 2018 Arthritis M19.90 [facility] [address] [facility] [id number] [address] [place] [phone] Sep, Renal insufficiency N28.9 an d Unspecified kidney failure N19 [facility] [address] [id number] [address] [place] [phone] Sep, Renal insufficiency N28.9 an d Unspecified kidney failure N19 [facility] [address] [facility] [id number] [address] [place] [phone] Sep, Arthritis M19.90 [facility] [address] [facility] [id number] [address] [place] [phone] Aug, Exercise counseling Z71.82 [facility] [address] [place] [id number] [address] [place] [phone] 08 Aug, 2018 [place] [address] [address] 27 Jul, 2018 Labyrinthitis of left ear H8 3.02 [place] [address] [address] [place] [id number] [address] [place] [phone] 22 Jul, 2018 Labyrinthitis of left ear H8 3.02 [place] [address] [address] [place] [id number] [address] [place] [phone] 19 Jul, 2018 Exercise counseling Z71.82 [place] [address] [phone] 18 Jul, 2018 [place] [address] [place] [id number] [place] [address] 14 Jul, 2018 Arthritis M19.90 [place] [address] [address] 13 Jul, 2018 Encounter for Medicare annua l wellness exam Z00.00 ; Chronic kidney disease, stage 4 (severe) N18.4 ; Body mass index (BMI) of 40.0-44.9 in adult Z68.41 ; Hyperparathyroidism E21.3 and BMI 40.0-44.9, adult Z68.41 [place] [address] [address] [place] [id number] [address] [place] [phone] 13 Jul, 2018 Encounter for Medicare annua l wellness exam Z00.00 ; Chronic kidney disease, stage 4 (severe) N18.4 ; Hyperparathyroidism E21.3 ; Body mass index (BMI) of 40.0-44.9 in adult Z68.41 and Encounter for immunization Z23 [place] [address] [address] 11 Jul, 2018 Tail bone pain M53.3 [place] [address] [address] [place] [id number] [address] [place] [phone] Jun, Exercise counseling Z71.82 [place] [address] [id number] [address] [place] [phone] Jun, Labyrinthitis of left ear H8 3.02 [facility] [address] [id number] [address] [place] [phone] Jun, Tail bone pain M53.3 ; Irrit able bowel syndrome with both constipation and diarrhea K58.2 and Dysfunction of left eustachian tube H69.82 [facility] [address] [id number] [address] [place] [address] Jun, Exercise counseling Z71.82 [facility] [address] [id number] [address] [place] [phone] Jun, Arthritis M19.90 [facility] [address] [id number] [address] [place] [phone] Jun, Irritable bowel syndrome wit h both constipation and diarrhea K58.2 ; Tail bone pain M53.3 and Dysfunction of left eustachian tube H69.82 [facility] [address] [id number] [address] [place] [phone] Jun, Exercise counseling Z71.82 [place] [address] [id number] [address] [place] [phone] Jun, Exercise counseling Z71.82 [facility] [address] [id number] [address] [place] [phone] Jun, Labyrinthitis of left ear H8 3.02 [facility] [address] [id number] [address] [place] [phone] May, Exercise counseling Z71.82 [facility] [address] [id number] [address] [place] [phone] May, Arthritis M19.90 [facility] [address] [id number] [address] [place] [phone] May, Exercise counseling Z71.82 [facility] [address] [id number] [address] [place] [address] May, Exercise counseling Z71.82 [facility] [address] [id number] [address] [place] [phone] 06 May, 2018 Labyrinthitis of left ear H8 3.02 [facility] [address] [id number] [address] [place] [phone] 03 May, 2018 Exercise counseling Z71.82 [facility] [address] [id number] [address] [place] [phone] Apr, Arthritis M19.90 [facility] [address] [id number] [address] [place] [phone] Apr, Exercise counseling Z71.82 [facility] [address] [id number] [address] [place] [phone] Apr, Exercise counseling Z71.82 [facility] [address] [id number] [address] [place] [phone] Apr, Primary osteoarthritis of le ft knee M17.12 [facility] [address] [id number] [address] [place] [phone] 08 Apr, 2018 Labyrinthitis of left ear H8 3.02 [facility] [address] [id number] [address] [place] [phone] 30 Mar, 2018 Arthritis M19.90 [facility] [address] [id number] [address] [place] [phone] Mar, [facility] [address] [id number] [address] [place] [phone] Mar, Chronic kidney disease, stag e 4 (severe) N18.4 [facility] [address] [id number] [address] [place] [phone] Mar, Chronic kidney disease, stag e 4 (severe) N18.4 [facility] [address] [id number] [address] [place] [phone] 09 Mar, 2018 Labyrinthitis of left ear H8 3.02 [facility] [address] [facility] [id number] [address] [place] [phone] Mar, Chronic kidney disease, stag e 4 (severe) N18.4 ; Knee pain, left anterior M25.562 ; 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 and Encounter for immunization Z23 [place] [address] [address] [facility] [id number] [address] [place] [phone] Mar, Arthritis M19.90 [place] [address] [address] [facility] [id number] [address] [place] [phone] Feb, Labyrinthitis of left ear H8 3.02 [place] [address] [address] [place] [id number] [address] [place] [phone] Feb, Arthritis M19.90 [place] [address] [address] [place] [id number] [address] [place] [phone] Jan, Labyrinthitis of left ear H8 3.02 [place] [address] [facility] [id number] [address] [place] [phone] Jan, Arthritis M19.90 [place] [address] [place] [id number] [address] [place] [phone] Dec, Labyrinthitis of left ear H8 3.02 [place] [address] [address] [place] [id number] [address] [place] [address] Nov, Arthritis M19.90 [place] [address] [place] [id number] [address] [place] [phone] Nov, Labyrinthitis of left ear H8 3.02 [place] [address] [address] [place] [id number] [address] [place] [phone] Nov, BMI 40.0-44.9, adult Z68.41 ; Chronic kidney disease, stage 4 (severe) N18.4 and Acute right-sided thoracic back pain M54.6 [place] [address] [address] [place] [id number] [address] [place] [phone] October, Labyrinthitis of left ear H8 3.02 and Arthritis M19.90 [place] [address] [address] [place] [id number] [address] [place] [phone] Sep, BPV (benign positional verti go), bilateral H81.13 ; Dysfunction of left eustachian tube H69.82 and BMI 40.0-44.9, adult Z68.41 [place] [address] [address] [place] [id number] [address] [place] [phone] Sep, Labyrinthitis of left ear H8 3.02 and Arthritis M19.90 [place] [address] [address] [place] [id number] [address] [place] [phone] Sep, [place] [address] [place] [id number] [place] [phone] Sep, [place] [address] [address] [place] [id number] [address] [place] [address] Sep, Chronic kidney disease, stag e 4 (severe) N18.4 [place] [address] [address] [place] [id number] [address] [place] [phone] Sep, Chronic kidney disease, stag e 4 (severe) N18.4 [facility] [address] [place] [id number] [address] [place] [phone] Aug, Labyrinthitis of left ear H8 3.02 and Arthritis M19.90 [facility] [address] [place] [id number] [address] [place] [phone] Aug, [facility] [address] [place] [id number] [address] [place] [phone] Jul, [place] [address] [place] [id number] [address] [place] [address] Jul, Arthritis M19.90 and Labyrin thitis of left ear H83.02 [place] [address] [address] [place] [id number] [address] [place] [phone] Jul, [facility] [address] [facility] [id number] [address] [place] [phone] Jun, [place] [address] [place] [id number] [address] [place] [address] Jun, Arthritis M19.90 and Labyrin thitis of left ear H83.02 [place] [address] [address] [place] [id number] [place] [phone] Jun, Pre-op evaluation Z01.818 ; BMI 40.0-44.9, adult Z68.41 and Encounter for immunization Z23 [place] [address] [address] [place] [id number] [place] [phone] May, Arthritis M19.90 and Labyrin thitis of left ear H83.02 [place] [address] [address] [place] [id number] [address] [place] [address] Apr, Labyrinthitis of left ear H8 3.02 [place] [address] [place] [id number] [address] [place] [address] Apr, Arthritis M19.90 and Labyrin thitis of left ear H83.02 [place] [address] [address] [place] [id number] [address] [place] [address] Mar, Arthritis M19.90 and Labyrin thitis of left ear H83.02 [place] [address] [address] [place] [id number] [address] [place] [phone] Mar, Chronic kidney disease, stag e 4 (severe) N18.4 [place] [address] [facility] [id number] [address] [place] [address] Feb, Arthritis M19.90 and Labyrin thitis of left ear H83.02 [place] [address] [facility] [id number] [address] [place] [address] Jan, Labyrinthitis of left ear H8 3.02 and 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 [place] [id number] [facility] [id number] [address] [place] [address] Dec, Arthritis M19.90 [facility] [address] [facility] [id number] [address] [place] [phone] Dec, BPV (benign positional verti go), bilateral H81.13 [facility] [address] [facility] [id number] [address] [place] [phone] Dec, [facility] [address] [facility] [id number] [address] [place] [phone] Dec, [facility] [address] [facility] [id number] [address] [place] [phone] Dec, [facility] [address] [place] [id number] [address] [place] [phone] Nov, Arthritis M19.90 and Deficie ncy 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 [facility] [address] [facility] [id number] [address] [place] [phone] Nov, Arthritis M19.90 [facility] [address] [facility] [id number] [address] [place] [phone] Nov, Hyperparathyroidism E21.3 [facility] [address] [place] [id number] [address] [place] [phone] October, [facility] [address] [facility] [id number] [address] [place] [address] October, Hyperparathyroidism E21.3 [facility] [address] [facility] [id number] [address] [place] [phone] October, [facility] [address] [facility] [id number] [address] [place] [phone] October, Renal insufficiency N28.9 an d Hyperparathyroidism E21.3 [facility] [address] [facility] [id number] [address] [place] [phone] October, [facility] [address] [place] [id number] [address] [place] [address] October, Renal insufficiency N28.9 an d Hyperparathyroidism E21.3 [facility] [address] [facility] [id number] [address] [place] [address] October, Arthritis M19.90 [facility] [address] [facility] [id number] [address] [place] [phone] Sep, [facility] [address] [place] [id number] [address] [place] [address] Sep, Lumbar neuritis M54.16 ; Tho racic abscess J86.9 and 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 [facility] [address] [facility] [id number] [address] [place] [phone] Sep, [facility] [address] [place] [id number] [address] [place] [phone] Aug, Arthritis M19.90 [facility] [address] [place] [id number] [address] [place] [phone] Aug, Hyperparathyroidism E21.3 [facility] [address] [facility] [id number] [address] [place] [phone] Aug, Hyperparathyroidism E21.3 [facility] [address] [facility] [id number] [address] [place] [phone] Aug, Arthritis M19.90 [facility] [address] [place] [id number] [address] [place] [phone] Jul, Mass of throat R22.1 [facility] [address] [facility] [id number] [address] [place] [phone] Jul, [facility] [address] [facility] [id number] [address] [place] [phone] Jul, Arthritis M19.90 [facility] [address] [place] [id number] [address] [place] [phone] Jun, Arthritis M19.90 [facility] [address] [place] [id number] [address] [place] [phone] Jun, [facility] [address] [facility] [id number] [address] [place] [phone] Jun, Renal insufficiency N28.9 an d 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 [facility] [address] [facility] [id number] [address] [place] [phone] 05 Jun, 2016 Medicare welcome exam Z00.00 ; Encounter for immunization Z23 ; Arthritis M19.90 ; Medicare annual wellness visit, initial Z00.00 ; Medicare annual wellness visit, subsequent Z00.00 and 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 [facility] [address] [facility] [id number] [address] [place] [phone] 29 May, 2016 Renal insufficiency N28.9 an d 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 [facility] [address] [facility] [id number] [address] [place] [phone] May, Renal insufficiency N28.9 [facility] [address] [facility] [id number] [address] [place] [phone] 16 May, 2016 Renal insufficiency N28.9 [facility] [address] [place] [id number] [address] [place] [phone] 14 May, 2016 [facility] [address] [place] [id number] [address] [place] [phone] 16 Apr, 2016 [facility] [id number] [place] [phone] 16 Apr, 2016 [facility] [address] [place] [id number] [address] [place] [phone] 14 Apr, 2016 Mass of throat R22.1 [facility] [address] [place] [id number] [address] [place] [phone] 10 Apr, 2016 [facility] [address] [place] [id number] [address] [place] [phone] 10 Apr, 2016 Mass of throat R22.1 [facility] [address] [place] [id number] [address] [place] [phone] Apr, Mass of throat R22.1 [facility] [address] [facility] [id number] [address] [place] [phone] Mar, [facility] [address] [facility] [id number] [address] [place] [phone] Mar, [facility] [address] [place] [id number] [address] [place] [phone] Mar, [facility] [address] [place] [id number] [place] [phone] Mar, Parathyroid abnormality E21. 5 and Encounter for immunization Z23 [facility] [address] [place] [id number] [address] [place] [phone] Mar, [facility] [address] [place] [id number] [address] [place] [phone] Mar, [facility] [address] [place] [id number] [address] [place] [phone] 21 Feb, 2016 Renal insufficiency N28.9 an d Hyperparathyroidism E21.3 [facility] [address] [facility] [id number] [address] [place] [phone] 19 Feb, 2016 [place] [facility] [address] [id number] [address] [place] [id number] 15 Feb, 2016 Renal insufficiency N28.9 an d Hyperparathyroidism E21.3 [facility] [address] [facility] [id number] [address] [place] [id number] 14 Feb, 2016 [facility] [address] [facility] [id number] [address] [place] [id number] 12 Feb, 2016 [facility] [address] [id number] [address] [place] [phone] 09 Feb, 2016 [facility] [address] [facility] [id number] [address] [place] [phone] Jan, [facility] [address] [facility] [id number] [address] [place] [id number] Jan, Arthritis M19.90 ; Lumbago w ith sciatica, right side M54.41 and Other chronic pain G89.29 [facility] [address] [facility] [id number] [address] [place] [phone] Jan, [facility] [address] [facility] [id number] [address] [place] [phone] Dec, Arthritis M19.90 ; Lumbago w ith sciatica, right side M54.41 and Other chronic pain G89.29 [facility] [address] [facility] [id number] [address] [place] [id number] 16 Nov, 2015 Deficiency of other specifie d B group vitamins E53.8 ; Primary insomnia F51.01 ; Mood disorder F39 and Lumbago with sciatica, right side M54.41 [address] [id number] [id number] [address] [place] [phone] Nov, Hyperparathyroidism E21.3 [facility] [address] [id number] [address] [place] [phone] Nov, Unspecified kidney failure N 19 and Hyperparathyroidism E21.3 [facility] [address] [id number] [address] [place] [phone] October, Hyperparathyroidism E21.3 [facility] [address] [id number] [address] [place] [phone] October, [facility] [address] [id number] [address] [place] [id number] October, Hyperparathyroidism E21.3 [facility] [address] [facility] [id number] [address] [place] [phone] October, Hyperparathyroidism E21.3 [facility] [address] [id number] [address] [place] [phone] Sep, Hyperparathyroidism E21.3 ; Hypercholesterolemia E78.0 and Arthritis M19.90 [facility] [address] [id number] [address] [place] [phone] Aug, [place] [id number] [facility] [id number] [address] [place] [phone] Aug, Deficiency of other specifie d B group vitamins E53.8 [facility] [address] [facility] [id number] [address] [place] [id number] Aug, [facility] [address] [id number] [address] [place] [phone] Jul, Urinary frequency R35.0 [facility] [address] [facility] [id number] [address] [place] [phone] Jul, Urinary frequency R35.0 [facility] [address] [facility] [id number] [address] [place] [phone] Jul, [facility] [address] [id number] [address] [place] [id number] Jul, [facility] [address] [id number] [address] [place] [phone] Jun, Pain in left knee M25.562 [facility] [address] [facility] [id number] [address] [place] [id number] Jun, [facility] [address] [id number] [address] [place] [phone] May, Swelling of left knee joint M25.462 [facility] [address] [facility] [id number] [address] [place] [phone] May, [facility] [address] [id number] [address] [place] [phone] May, [facility] [address] [facility] [id number] [address] [place] [phone] May, [facility] [address] [id number] [address] [place] [phone] Apr, Renal insufficiency N28.9 an d Chronic kidney disease, stage 4 (severe) N18.4 [facility] [address] [id number] [address] [place] [id number] Apr, Unspecified kidney failure N 19 [facility] [address] [id number] [address] [place] [id number] Apr, Unspecified kidney failure N 19 [facility] [address] [id number] [address] [place] [id number] Apr, [facility] [address] [id number] [address] [place] [phone] Apr, Hyperparathyroidism, unspeci fied 252.00 [facility] [address] [id number] [address] [place] [phone] Apr, [facility] [address] [id number] [address] [place] [phone] Mar, [facility] [address] [id number] [address] [place] [id number] Mar, [facility] [address] [id number] [address] [place] [id number] Mar, Hyperparathyroidism, unspeci fied 252.00 [facility] [address] [id number] [address] [place] [id number] Feb, [facility] [address] [id number] [address] [place] [phone] Feb, Otalgia 388.70 [facility] [address] [id number] [address] [place] [phone] Feb, [facility] [address] [id number] [address] [place] [phone] Feb, [facility] [address] [id number] [address] [place] [phone] Jan, [facility] [address] [id number] [address] [place] [id number] Jan, Hyperparathyroidism, unspeci fied 252.00 [facility] [address] [id number] [address] [place] [id number] Jan, [facility] [address] [id number] [address] [place] [id number] Jan, Other B-complex deficiencies 266.2 and Hyperparathyroidism, unspecified 252.00 [facility] [address] [id number] [address] [place] [id number] Jan, [facility] [address] [id number] [address] [place] [phone] Jan, [facility] [address] [id number] [address] [place] [phone] Jan, [facility] [address] [id number] [address] [place] [phone] Dec, [facility] [address] [id number] [address] [place] [phone] Dec, [facility] [address] [id number] [address] [place] [id number] Dec, [facility] [address] [id number] [address] [place] [id number] Nov, Routine check-up V70.0 and P re-op exam V72.84 [facility] [address] [id number] [address] [place] [phone] Nov, [facility] [address] [id number] [address] [place] [phone] Nov, [facility] [address] [id number] [address] [place] [phone] October, [facility] [address] [id number] [address] [place] [id number] October, Other B-complex deficiencies 266.2 [facility] [address] [id number] [address] [place] [phone] October, [facility] [address] [id number] [address] [place] [phone] Sep, [facility] [address] [id number] [address] [place] [address], [place] [id number] 13 Sep, 2014 [facility] [address] [id number] [address] [place] [address], [place] [id number] 20 Aug, 2014 [facility] [address] [id number] [address] [place] [address], [place] [id number] 20 Aug, 2014 [facility] [address] [id number] [address] [place] [address], [place] [id number] 17 Aug, 2014 [facility] [address] [id number] [address] [place] [address], [place] [address] 17 Aug, 2014 [facility] [address] [id number] [address] [place] [address], [place] [id number] 11 Aug, 2014 [facility] [address] [id number] [address] [place] [address], [place] [id number] 11 Aug, 2014 [facility] [address] [id number] [address] [place] [address], [place] [id number] 18 Jul, 2014 [facility] [address] [id number] [address] [place] [address], [place] [id number] 18 Jul, 2014 [facility] [address] [id number] [address] [place] [address], [place] [id number] 17 Jul, 2014 [facility] [address] [id number] [address] [place] [address], [place] [id number] 17 Jul, 2014 [facility] [address] [id number] [address] [place] [address], [place] [address] 12 Jul, 2014 [facility] [address] [id number] [address] [place] [address], [place] [id number] 12 Jul, 2014 [facility] [address] [id number] [address] [place] [address], [place] [id number] 10 Jul, 2014 [facility] [address] [id number] [address] [place] [address], [place] [id number] 10 Jul, 2014 [facility] [address] [id number] [address] [place] [address], [place] [id number] Jul, 2014 [facility] [address] [id number] [address] [place] [address], [place] [id number] Jul, 2014 [facility] [address] [id number] [address] [place] [address], [place] [address] Jul, 2014 [facility] [address] [id number] [address] [place] [address], [place] [address] Jul, 2014 [facility] [address] [id number] [address] [place] [address], [place] [address] Jul, [facility] [address] [id number] [address] [place] [address], [place] [id number] Jul, [facility] [address] [id number] [address] [place] [address], [place] [id number] Jun, [facility] [address] [id number] [address] [place] [address], [place] [address] Jun, [facility] [address] [id number] [address] [place] [address], [place] [address] Jun, [facility] [address] [id number] [address] [place] [address], [place] [address] Jun, [facility] [address] [id number] [address] [place] [address], [place] [id number] Jun, [facility] [address] [id number] [address] [place] [address], [place] [address] Jun, [facility] [address] [id number] [address] [place] [address], [place] [address] Jun, [facility] [address] [id number] [address] [place] [address], [place] [address] Jun, [facility] [address] [id number] [address] [place] [address], [place] [address] Jun, [facility] [address] [id number] [address] [place] [address], [place] [address] Jun, [facility] [address] [id number] [address] [place] [address], [place] [address] Jun, [facility] [address] [id number] [address] [place] [address], [place] [address] Jun, [facility] [address] [id number] [address] [place] [address], [place] [address] Jun, [facility] [address] [id number] [address] [place] [address], [place] [address] Jun, [facility] [address] [id number] [address] [place] [address], [place] [address] May, [facility] [address] [id number] [address] [place] [address], [place] [address] May, [facility] [address] [id number] [address] [place] [address], [place] [address] May, [facility] [address] [id number] [address] [place] [address], [place] [address] May, [facility] [address] [id number] [address] [place] [address], [place] [address] Apr, [facility] [address] [id number] [address] [place] [address], [place] [id number] Apr, [facility] [address] [id number] [address] [place] [address], [place] [address] Apr, [facility] [address] [id number] [address] [place] [phone] Apr, [facility] [address] [id number] [address] [place] [address], [place] [address] Apr, [facility] [address] [id number] [address] [place] [address], [place] [address] Apr, [facility] [address] [id number] [address] [place] [address], [place] [address] 24 Mar, 2014 [facility] [address] [id number] [address] [place] [id number] 24 Mar, 2014 [facility] [address] [id number] [address] [place] [address], [place] [address] Mar, [facility] [address] [id number] [address] [place] [address], [place] [id number] 22 Mar, 2014 [facility] [address] [id number] [address] [place] [address], [place] [address] 15 Mar, 2014 [facility] [address] [id number] [address] [place] [address], [place] [id number] 15 Mar, 2014 [facility] [address] [id number] [address] [place] [address], [place] [address] 13 Mar, 2014 [facility] [address] [id number] [address] [place] [address], [place] [address] 13 Mar, 2013 [facility] [address] [id number] [address] [place] [id number] 07 Mar, 2013 [facility] [address] [id number] [address] [place] [address], [place] [address] 07 Mar, 2013 [facility] [address] [id number] [address] [place] [address], [place] [address] 07 Mar, 2013 [facility] [address] [id number] [address] [place] [id number] 07 Mar, 2014 [facility] [address] [id number] [address] [place] [address], [place] [address] 06 Mar, 2013 [facility] [address] [id number] [address] [place] [id number] 26 Feb, 2013 [facility] [address] [id number] [address] [place] [address], [place] [address] 26 Feb, 2013 [facility] [address] [id number] [address] [place] [address], [place] [address] 23 Feb, 2013 [facility] [address] [id number] [address] [place] [address], [place] [address] 23 Feb, 2013 [facility] [address] [id number] [facility] [place] [address] 19 Feb, 2013 [facility] [address] [id number] [facility] [place] [address] 19 Feb, 2014 [facility] [address] [id number] [facility] [place] [address] 13 Feb, 2014 [facility] [address] [id number] [address] [place] [address], [place] [address] 13 Feb, 2014 [facility] [address] [id number] [address] [place] [address], [place] [address] 12 Feb, 2014 [facility] [address] [id number] [address] [place] [address], [place] [address] Feb, [facility] [address] [id number] [address] [place] [address], [place] [id number] 15 Jan, 2014 [facility] [address] [id number] [address] [place] [address], [place] [address] Jan, [facility] [address] [id number] [address] [place] [address], [place] [address] Dec, [facility] [address] [id number] [address] [place] [address], [place] [address] Dec, [facility] [address] [id number] [address] [place] [address], [place] [id number] Dec, [facility] [address] [id number] [address] [place] [address], [place] [address] Dec, [facility] [address] [id number] [address] [place] [address], [place] [id number] Dec, [facility] [address] [id number] [address] [place] [address], [place] [address] Dec, [facility] [address] [id number] [address] [place] [address], [place] [address] Nov, [facility] [address] [id number] [address] [place] [address], [place] [address] Nov, [facility] [address] [id number] [facility] [place] [address] Nov, [facility] [address] [id number] [facility] [place] [address] Nov, [facility] [address] [id number] [facility] [place] [address] October, [facility] [address] [id number] [facility] [place] [address] October, [facility] [address] [id number] [facility] [place] [address] October, [facility] [address] [id number] [address] [place] [address], [place] [address] October, [facility] [address] [id number] [address] [place] [address], [place] [address] October, [facility] [address] [id number] [address] [place] [address], [place] [address] October, [facility] [address] [id number] [address] [place] [address], [place] [address] October, [facility] [address] [id number] [address] [place] [address], [place] [id number] October, [facility] [address] [id number] [address] [place] [address], [place] [id number] October, [facility] [address] [id number] [address] [place] [address], [place] [address] October, [facility] [address] [id number] [address] [place] [address], [place] [address] October, [facility] [address] [id number] [address] [place] [address], [place] [address] October, [facility] [address] [id number] [address] [place] [address], [place] [address] October, [facility] [address] [id number] [address] [place] [address] October, [facility] [address] [id number] [address] [place] [address], [place] [address] October, [facility] [address] [id number] [address] [place] [address], [place] [address] October, [facility] [address] [id number] [address] [place] [address], [place] [address] Sep, [facility] [address] [id number] [address] [place] [address], [place] [address] Sep, [facility] [address] [id number] [address] [place] [address], [place] [address] Sep, [facility] [address] [id number] [address] [place] [address], [place] [address] Sep, [facility] [address] [id number] [address] [place] [address], [place] [address] Sep, [facility] [address] [id number] [address] [place] [address], [place] [address] Sep, [facility] [address] [id number] [address] [place] [address], [place] [address] Aug, [facility] [address] [id number] [address] [place] [address], [place] [address] Aug, [facility] [address] [id number] [address] [place] [address], [place] [address] Aug, [facility] [address] [id number] [address] [place] [address], [place] [address] Aug, [facility] [place] [facility] [address] [id number] [address] [place] [address], [place] [address] Aug, [facility] [place] [facility] [address] [id number] [address] [place] [address], [place] [address] Aug, [facility] [address] [id number] [address] [place] [address], [place] [address] Jul, [facility] [place] [facility] [address] [id number] [address] [place] [address], [place] [address] Jul, [facility] [address] [id number] [address] [place] [address], [place] [address] Jul, [facility] [address] [id number] [address] [place] [address], [place] [address] Jul, [facility] [address] [id number] [address] [place] [address], [place] [address] Jun, [facility] [address] [id number] [address] [place] [address], [place] [address] Jun, [facility] [address] [id number] [address] [place] [address], [place] [address] May, [facility] [address] [id number] [address] [place] [address], [place] [address] May, [facility] [address] [id number] [address] [place] [address], [place] [address] May, [facility] [address] [id number] [address] [place] [address], [place] [address] May, [facility] [address] [id number] [address] [place] [id number] May, [facility] [address] [id number] [address] [place] [id number] Apr, [facility] [address] [id number] [address] [place] [id number] Apr, [facility] [address] [id number] [address] [place] [address], [place] [address] Apr, [facility] [address] [id number] [address] [place] [address], [place] [address] Apr, [facility] [address] [id number] [address] [place] [address], [place] [address] Apr, [facility] [address] [id number] [address] [place] [id number] 04 Apr, 2013 [facility] [address] [id number] [address] [place] [address], [place] [address] 15 Mar, 2013 [facility] [address] [id number] [address] [place] [address], [place] [address] 15 Mar, 2013 [facility] [address] [id number] [address] [place] [address], [place] [address] 14 Mar, 2013 [facility] [address] [id number] [address] [place] [address], [place] [address] 14 Mar, 2013 [facility] [address] [id number] [address] [place] [address], [place] [address] 11 Mar, 2013 [facility] [address] [id number] [address] [place] [address], [place] [address] 11 Mar, 2013 [facility] [address] [id number] [address] [place] [place] [address], [place] [address] 23 Feb, 2013 [facility] [address] [id number] [address] [place] [address], [place] [id number] 19 Feb, 2013 [facility] [address] [id number] [address] [place] [address], [place] [address] 04 Feb, 2013 [facility] [address] [id number] [address] [place] [address], [place] [id number] 30 Jan, 2013 [facility] [address] [id number] [address] [place] [address], [place] [address] Jan, [facility] [address] [id number] [address] [place] [address], [place] [address] Jan, [facility] [address] [id number] [address] [place] [address], [place] [address] 16 Jan, 2013 [facility] [address] [id number] [address] [place] [address], [place] [address] Jan, [facility] [address] [id number] [address] [place] [address], [place] [address] Jan, [facility] [address] [id number] [facility] [place] [address] Dec, [facility] [address] [id number] [address] [place] [address], [place] [address] Dec, [facility] [address] [id number] [address] [place] [address], [place] [address] Dec, [facility] [address] [id number] [address] [place] [address], [place] [address] Dec, [facility] [address] [id number] [address] [place] [address], [place] [address] Dec, [facility] [address] [id number] [address] [place] [address], [place] [address] Dec, [facility] [address] [id number] [address] [place] [address], [place] [address] Nov, [facility] [address] [id number] [address] [place] [address], [place] [address] Nov, [facility] [address] [id number] [address] [place] [address], [place] [id number] Nov, [facility] [address] [id number] [address] [place] [address], [place] [address] Nov, [facility] [address] [id number] [address] [place] [address], [place] [address] Nov, [facility] [address] [id number] [address] [place] [address], [place] [address] Nov, [facility] [address] [id number] [address] [place] [address], [place] [address] October, [facility] [address] [id number] [address] [place] [address], [place] [address] October, [facility] [address] [id number] [address] [place] [address], [place] [address] October, [facility] [address] [id number] [address] [place] [address], [place] [address] October, [facility] [address] [id number] [address] [place] [address], [place] [address] October, [facility] [address] [id number] [address] [place] [address], [place] [address] Sep, [facility] [address] [id number] [address] [place] [address], [place] [address] Sep, [facility] [address] [id number] [address] [place] [address], [place] [address] Sep, [facility] [address] [id number] [address] [place] [address], [place] [address] Sep, [facility] [address] [id number] [address] [place] [address], [place] [address] Sep, [facility] [address] [id number] [address] [place] [address], [place] [address] Aug, [facility] [address] [id number] [address] [place] [address], [place] [address] Aug, [facility] [address] [id number] [address] [place] [address], [place] [address] Aug, [facility] [address] [id number] [address] [place] [address], [place] [address] Jul, [facility] [address] [id number] [address] [place] [address], [place] [address] Jul, [facility] [address] [id number] [address] [place] [address], [place] [address] Jul, [facility] [address] [id number] [address] [place] [address], [place] [address] 08 Jul, 2012 [facility] [address] [id number] [address] [place] [address], [place] [address] 06 Jul, 2012 [facility] [address] [id number] [address] [place] [address], [place] [address] 05 Jul, 2012 [facility] [address] [id number] [address] [place] [address], [place] [address] 15 Jun, 2012 [facility] [address] [id number] [address] [place] [address], [place] [address] Apr, [facility] [address] [id number] [address] [place] [address], [place] [address] Apr, [facility] [address] [id number] [address] [place] [address], [place] [address] Apr, [facility] [address] [id number] [address] [place] [address], [place] [address] Apr, [facility] [address] [id number] [address] [place] [address], [place] [address] Mar, [facility] [address] [id number] [address] [place] [address], [place] [address] Mar, [facility] [address] [id number] [address] [place] [address], [place] [address] Mar, [facility] [address] [id number] [address] [place] [address], [place] [address] Mar, [facility] [address] [id number] [address] [place] [address], [place] [address] Mar, [facility] [address] [id number] [address] [place] [address], [place] [address] Feb, [facility] [address] [id number] [address] [place] [address], [place] [address] Jan, [facility] [address] [id number] [address] [place] [address], [place] [address] Jan, [facility] [address] [id number] [address] [place] [address], [place] [address] Jan, [facility] [address] [id number] [address] [place] [address], [place] [address] Dec, [facility] [address] [id number] [address] [place] [address], [place] [address] Nov, [facility] [address] [id number] [address] [place] [id number] Nov, [facility] [address] [id number] [address] [place] [id number] Nov, [facility] [address] [id number] [address] [place] [id number] Nov, [facility] [address] [id number] [address] [place] [id number] Nov, [facility] [address] [id number] [address] [place] [id number] October, [facility] [address] [id number] [address] [place] [id number] October, [facility] [address] [facility] [id number] [address] [place] [id number] October, [facility] [address] [id number] [address] [place] [id number] October, [facility] [address] [id number] [address] [place] [id number] October, IMMUNIZATIONS No Known Immunizations SOCIAL HISTORY Never Assessed REASON FOR VISIT PLAN OF CARE VITAL SIGNS MEDICATIONS Unknown Medications RESULTS No Results PROCEDURES No Known procedures INSTRUCTIONS MEDICATIONS ADMINISTERED No Known Medications MEDICAL (GENERAL) HISTORY Type Description Date Medical History hypertension Medical History acid reflux Medical History osteoporosis Medical History Arthritis Medical History fibromyalgia Surgical History cholecystectomy Surgical History gastric bypass 1969' Surgical History orthopedic surgery-left and right foot Surgical History arthroscopic knee surgery-left Surgical History Left knee meniscus repair 2009 Surgical History half of thyroid removed Jun 2016 Hospitalization History Hospitalization for surgery only
--- OUTSIDE RECORDS SUMMARY | 2020-01-25 07:32 | XMS REPORT ---
Author Author Velma CORDERO Organization [facility] Address [address] [place] [address] Care Team Providers Care Fractionating Still Operator Name Role Phone STEPHAN CORDERO Unavailable PROBLEMS Type Condition ICD9-CM Code IQI13-JA Code Onset Dates Condition S tatus SNOMED Code Problem Corns L84 Active 822698433 Problem Primary insomnia F51.01 Active 397 2004 Problem Hyperparathyroidism E21.3 Active 88554724 Problem Hypercholesteremia E78.0 Active 1 7786318 Problem Mood disorder F39 Active 963475 05 Problem Arthritis M19.90 Active 7073357 Problem 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 Active 06713704 Problem Myalgia M79.1 Active 37314426 Problem Chronic kidney disease, stage 4 (severe) N18.4 Active 600213358 Problem Primary osteoarthritis of left knee M17.12 Active [id number] Problem Irritable bowel syndrome with both constipation and diarrh ea K58.2 Active 45837559 Problem Other chronic pain G89.29 Active 8 6972162 Problem BPV (benign positional vertigo), bilateral H81.13 Active 505566295 Problem Hyperparathyroidism, unspecified E21.3 Active 77936285 Problem 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 Active 40226803 Problem Body mass index (BMI) of 40.0-44.9 in adult Z68.41 Active 844496816 Problem Unspecified kidney failure N19 Act chip 09851901 Problem 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 Active 639884080 Problem Unspecified inflammatory spo ndylopathy, sacral and sacrococcygeal region M46.98 Active 15772809 ALLERGIES No Information ENCOUNTERS Encounter Location Date Diagnosis [facility] [address] [facility] [id number] [address] [place] [address] Sep, Hyperparathyroidism, unspeci fied E21.3 [facility] [address] [facility] [id number] [address] [place] [address] Aug, Hyperparathyroidism, unspeci fied E21.3 [place] [address] [id number] [address] [place] [address] Aug, Pain in left knee M25.562 ; Other chronic pain G89.29 ; Unspecified inflammatory spondylopathy, sacral and sacrococcygeal region M46.98 ; Chronic kidney disease, stage 4 (severe) N18.4 and Hyperparathyroidism, unspecified E21.3 [place] [address] [id number] [address] [place] [address] Jul, [place] [address] [id number] [address] [place] [address] Jul, Arthritis M19.90 [place] [address] [facility] [id number] [address] [place] [address] Jun, Knee pain, left M25.562 [place] [address] [id number] [address] [place] [address] May, Arthritis M19.90 [place] [address] [facility] [id number] [address] [place] [address] Apr, Well woman exam without gyne cological exam Z00.00 and Screening for breast cancer Z12.39 [place] [address] [facility] [id number] [address] [place] [address] Mar, Arthritis M19.90 [place] [address] [id number] [address] [place] [address] Mar, Arthritis M19.90 [place] [address] [id number] [address] [place] [address] Mar, [place] [address] [facility] [id number] [address] [place] [address] Mar, Arthritis M19.90 and Encount er for immunization Z23 [place] [address] [facility] [id number] [address] [place] [address] Feb, Arthritis M19.90 [facility] [address] [id number] [address] [place] [address] Feb, [facility] [address] [id number] [address] [place] [address] Feb, Other specified disorders of bone density and structure, unspecified site M85.80 [facility] [address] [id number] [address] [place] [address] Jan, Arthritis M19.90 [facility] [address] [id number] [address] [place] [address] Dec, Arthritis M19.90 [facility] [address] [id number] [address] [place] [address] Nov, Inflammatory spondylopathy o f sacral region M46.98 [facility] [address] [id number] [address] [place] [address] Nov, [facility] [address] [facility] [id number] [address] [place] [address] Nov, Labyrinthitis of left ear H8 3.02 [facility] [address] [facility] [id number] [address] [place] [address] Nov, Arthritis M19.90 [facility] [address] [facility] [id number] [address] [place] [address] 15 Sep, 2018 Arthritis M19.90 [facility] [address] [facility] [id number] [address] [place] [address] Sep, Renal insufficiency N28.9 an d Unspecified kidney failure N19 [facility] [address] [id number] [address] [place] [address] Sep, Renal insufficiency N28.9 an d Unspecified kidney failure N19 [facility] [address] [facility] [id number] [address] [place] [address] Sep, Arthritis M19.90 [facility] [address] [facility] [id number] [address] [place] [address] 18 Aug, 2018 Exercise counseling Z71.82 [facility] [address] [id number] [address] [place] [address] 08 Aug, 2018 [facility] [address] [facility] [id number] [address] [place] [address] 27 Jul, 2018 Labyrinthitis of left ear H8 3.02 [facility] [address] [facility] [id number] [address] [place] [address] 22 Jul, 2018 Labyrinthitis of left ear H8 3.02 [facility] [address] [id number] [address] [place] [address] 19 Jul, 2018 Exercise counseling Z71.82 [place] [address] [facility] [id number] [address] [place] [address] 18 Jul, 2018 [place] [address] [facility] [id number] [address] [place] [address] 14 Jul, 2018 Arthritis M19.90 [place] [address] [facility] [id number] [address] [place] [address] 13 Jul, 2018 Encounter for Medicare annua l wellness exam Z00.00 ; Chronic kidney disease, stage 4 (severe) N18.4 ; Body mass index (BMI) of 40.0-44.9 in adult Z68.41 ; Hyperparathyroidism E21.3 and BMI 40.0-44.9, adult Z68.41 [place] [address] [facility] [id number] [address] [place] [address] 13 Jul, 2018 Encounter for Medicare annua l wellness exam Z00.00 ; Chronic kidney disease, stage 4 (severe) N18.4 ; Hyperparathyroidism E21.3 ; Body mass index (BMI) of 40.0-44.9 in adult Z68.41 and Encounter for immunization Z23 [facility] [address] [facility] [id number] [address] [place] [address] 11 Jul, 2018 Tail bone pain M53.3 [facility] [address] [facility] [id number] [address] [place] [address] Jun, Exercise counseling Z71.82 [facility] [address] [id number] [address] [place] [address] Jun, Labyrinthitis of left ear H8 3.02 [facility] [address] [id number] [address] [place] [address] Jun, Tail bone pain M53.3 ; Irrit able bowel syndrome with both constipation and diarrhea K58.2 and Dysfunction of left eustachian tube H69.82 [facility] [address] [id number] [address] [place] [address] Jun, Exercise counseling Z71.82 [facility] [address] [id number] [address] [place] [address] Jun, Arthritis M19.90 [facility] [address] [id number] [address] [place] [address] Jun, Irritable bowel syndrome wit h both constipation and diarrhea K58.2 ; Tail bone pain M53.3 and Dysfunction of left eustachian tube H69.82 [facility] [address] [id number] [address] [place] [address] Jun, Exercise counseling Z71.82 [facility] [address] [id number] [address] [place] [address] Jun, Exercise counseling Z71.82 [facility] [address] [id number] [address] [place] [address] Jun, Labyrinthitis of left ear H8 3.02 [facility] [address] [id number] [address] [place] [address] May, Exercise counseling Z71.82 [facility] [address] [id number] [address] [place] [address] May, Arthritis M19.90 [facility] [address] [id number] [address] [place] [address] May, Exercise counseling Z71.82 [facility] [address] [id number] [address] [place] [address] May, Exercise counseling Z71.82 [facility] [address] [id number] [address] [place] [address] May, Labyrinthitis of left ear H8 3.02 [facility] [address] [id number] [address] [place] [address] May, Exercise counseling Z71.82 [facility] [address] [id number] [address] [place] [address] Apr, Arthritis M19.90 [facility] [address] [id number] [address] [place] [address] Apr, Exercise counseling Z71.82 [facility] [address] [id number] [address] [place] [address] Apr, Exercise counseling Z71.82 [facility] [address] [id number] [address] [place] [address] Apr, Primary osteoarthritis of le ft knee M17.12 [facility] [address] [id number] [address] [place] [address] 08 Apr, 2018 Labyrinthitis of left ear H8 3.02 [facility] [address] [id number] [address] [place] [address] 30 Mar, 2018 Arthritis M19.90 [facility] [address] [id number] [address] [place] [address] Mar, [facility] [address] [id number] [address] [place] [address] Mar, Chronic kidney disease, stag e 4 (severe) N18.4 [facility] [address] [id number] [address] [place] [address] 15 Mar, 2018 Chronic kidney disease, stag e 4 (severe) N18.4 [facility] [address] [address] Mar, Labyrinthitis of left ear H8 3.02 [place] [address] [address] Mar, Chronic kidney disease, stag e 4 (severe) N18.4 ; Knee pain, left anterior M25.562 ; 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 and Encounter for immunization Z23 [place] [address] [address] Mar, Arthritis M19.90 [place] [address] [address] Feb, Labyrinthitis of left ear H8 3.02 [place] [address] [address] Feb, Arthritis M19.90 [place] [address] [address] Jan, Labyrinthitis of left ear H8 3.02 [place] [address] [address] Jan, Arthritis M19.90 [place] [address] [address] Dec, Labyrinthitis of left ear H8 3.02 [place] [address] [address] Nov, Arthritis M19.90 [place] [address] [place] [id number] [place] [address] Nov, Labyrinthitis of left ear H8 3.02 [place] [address] [place] [id number] [place] [address] Nov, BMI 40.0-44.9, adult Z68.41 ; Chronic kidney disease, stage 4 (severe) N18.4 and Acute right-sided thoracic back pain M54.6 [facility] [address] [id number] [address] [place] [address] October, Labyrinthitis of left ear H8 3.02 and Arthritis M19.90 [facility] [address] [facility] [id number] [address] [place] [address] Sep, BPV (benign positional verti go), bilateral H81.13 ; Dysfunction of left eustachian tube H69.82 and BMI 40.0-44.9, adult Z68.41 [facility] [address] [facility] [id number] [address] [place] [address] Sep, Labyrinthitis of left ear H8 3.02 and Arthritis M19.90 [facility] [address] [facility] [id number] [address] [place] [address] Sep, [place] [address] [place] [id number] [address] [place] [address] Sep, [facility] [address] [facility] [id number] [address] [place] [address] Sep, Chronic kidney disease, stag e 4 (severe) N18.4 [place] [address] [facility] [id number] [address] [place] [address] Sep, Chronic kidney disease, stag e 4 (severe) N18.4 [place] [address] [facility] [id number] [address] [place] [address] Aug, Labyrinthitis of left ear H8 3.02 and Arthritis M19.90 [facility] [address] [id number] [address] [place] [address] Aug, [facility] [address] [facility] [id number] [address] [place] [address] Jul, [facility] [address] [facility] [id number] [address] [place] [address] Jul, Arthritis M19.90 and Labyrin thitis of left ear H83.02 [place] [address] [facility] [id number] [address] [place] [address] Jul, [place] [address] [place] [id number] [place] [address] Jun, [place] [address] [place] [id number] [address] [place] [address] Jun, Arthritis M19.90 and Labyrin thitis of left ear H83.02 [place] [address] [address] Jun, Pre-op evaluation Z01.818 ; BMI 40.0-44.9, adult Z68.41 and Encounter for immunization Z23 [place] [address] [place] [id number] [place] [address] May, Arthritis M19.90 and Labyrin thitis of left ear H83.02 [place] [address] [address] Apr, Labyrinthitis of left ear H8 3.02 [place] [address] [address] Apr, Arthritis M19.90 and Labyrin thitis of left ear H83.02 [place] [address] [place] [id number] [place] [address] Mar, Arthritis M19.90 and Labyrin thitis of left ear H83.02 [place] [address] [place] [id number] [address] [place] [address] Mar, Chronic kidney disease, stag e 4 (severe) N18.4 [place] [address] [place] [id number] [address] [place] [address] 06 Feb, 2017 Arthritis M19.90 and Labyrin thitis of left ear H83.02 [place] [address] [place] [id number] [address] [place] [address] Jan, Labyrinthitis of left ear H8 3.02 and 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 [facility] [address] [id number] [address] [place] [address] Dec, Arthritis M19.90 [facility] [address] [id number] [address] [place] [address] Dec, BPV (benign positional verti go), bilateral H81.13 [facility] [address] [id number] [address] [place] [address] Dec, [facility] [address] [id number] [address] [place] [address] Dec, [facility] [address] [id number] [address] [place] [address] Dec, [facility] [address] [facility] [id number] [address] [place] [address] Nov, Arthritis M19.90 and Deficie ncy 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 [facility] [address] [id number] [address] [place] [address] Nov, Arthritis M19.90 [facility] [address] [id number] [address] [place] [address] Nov, Hyperparathyroidism E21.3 [facility] [address] [facility] [id number] [address] [place] [address] October, [facility] [address] [facility] [id number] [address] [place] [address] October, Hyperparathyroidism E21.3 [facility] [address] [id number] [address] [place] [address] October, [facility] [address] [facility] [id number] [address] [place] [address] October, Renal insufficiency N28.9 an d Hyperparathyroidism E21.3 [facility] [address] [facility] [id number] [address] [place] [address] October, [facility] [address] [place] [id number] [address] [place] [address] October, Renal insufficiency N28.9 an d Hyperparathyroidism E21.3 [facility] [address] [place] [id number] [address] [place] [address] October, Arthritis M19.90 [facility] [address] [address] Sep, [facility] [address] [address] Sep, Lumbar neuritis M54.16 ; Tho racic abscess J86.9 and 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 [facility] [address] [place] [id number] [address] [place] [address] Sep, [facility] [address] [address] Aug, Arthritis M19.90 [facility] [address] [place] [id number] [address] [place] [address] Aug, Hyperparathyroidism E21.3 [facility] [address] [address] Aug, Hyperparathyroidism E21.3 [facility] [address] [address] Aug, Arthritis M19.90 [facility] [address] [place] [id number] [address] [place] [address] Jul, Mass of throat R22.1 [facility] [address] [address] Jul, [facility] [address] [place] [id number] [address] [place] [address] Jul, Arthritis M19.90 [facility] [address] [place] [id number] [address] [place] [address] Jun, Arthritis M19.90 [facility] [address] [facility] [id number] [address] [place] [address] Jun, [facility] [address] [facility] [id number] [address] [place] [address] Jun, Renal insufficiency N28.9 an d 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 [facility] [address] [facility] [id number] [address] [place] [address] 05 Jun, 2016 Medicare welcome exam Z00.00 ; Encounter for immunization Z23 ; Arthritis M19.90 ; Medicare annual wellness visit, initial Z00.00 ; Medicare annual wellness visit, subsequent Z00.00 and 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 [facility] [address] [facility] [id number] [address] [place] [address] 29 May, 2016 Renal insufficiency N28.9 an d 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 [facility] [address] [facility] [id number] [address] [place] [address] May, Renal insufficiency N28.9 [facility] [address] [facility] [id number] [address] [place] [address] May, Renal insufficiency N28.9 [facility] [address] [facility] [id number] [address] [place] [address] 14 May, 2016 [facility] [address] [facility] [id number] [address] [place] [address] Apr, [facility] [address] [facility] [id number] [address] [place] [address] 16 Apr, 2016 [facility] [address] [facility] [id number] [address] [place] [address] 14 Apr, 2016 Mass of throat R22.1 [facility] [address] [facility] [id number] [address] [place] [address] 10 Apr, 2016 [facility] [address] [facility] [id number] [address] [place] [address] 10 Apr, 2016 Mass of throat R22.1 [facility] [address] [id number] [address] [place] [address] 04 Apr, 2016 Mass of throat R22.1 [facility] [address] [id number] [address] [place] [address] Mar, [facility] [address] [facility] [id number] [address] [place] [address] Mar, [facility] [address] [id number] [address] [place] [address] Mar, [facility] [address] [facility] [id number] [address] [place] [address] 24 Mar, 2016 Parathyroid abnormality E21. 5 and Encounter for immunization Z23 [facility] [address] [facility] [id number] [address] [place] [address] 17 Mar, 2016 [facility] [address] [facility] [id number] [address] [place] [address] Mar, [facility] [address] [facility] [id number] [address] [place] [address] 21 Feb, 2016 Renal insufficiency N28.9 an d Hyperparathyroidism E21.3 [facility] [address] [id number] [address] [place] [address] 19 Feb, 2016 [facility] [address] [facility] [id number] [address] [place] [address] 15 Feb, 2016 Renal insufficiency N28.9 an d Hyperparathyroidism E21.3 [facility] [address] [id number] [address] [place] [address] 14 Feb, 2016 [facility] [address] [id number] [address] [place] [address] 12 Feb, 2016 [facility] [address] [facility] [id number] [address] [place] [phone] 09 Feb, 2016 [facility] [address] [facility] [id number] [address] [place] [phone] Jan, [facility] [address] [facility] [id number] [address] [place] [phone] Jan, Arthritis M19.90 ; Lumbago w ith sciatica, right side M54.41 and Other chronic pain G89.29 [facility] [address] [facility] [id number] [address] [place] [phone] Jan, [facility] [address] [facility] [id number] [address] [place] [phone] Dec, Arthritis M19.90 ; Lumbago w ith sciatica, right side M54.41 and Other chronic pain G89.29 [facility] [address] [place] [id number] [address] [place] [phone] 16 Nov, 2015 Deficiency of other specifie d B group vitamins E53.8 ; Primary insomnia F51.01 ; Mood disorder F39 and Lumbago with sciatica, right side M54.41 [facility] [address] [place] [id number] [address] [place] [phone] Nov, Hyperparathyroidism E21.3 [facility] [address] [place] [id number] [address] [place] [phone] Nov, Unspecified kidney failure N 19 and Hyperparathyroidism E21.3 [facility] [address] [place] [id number] [address] [place] [phone] October, Hyperparathyroidism E21.3 [facility] [place] [address] [place] [id number] [address] [place] [phone] October, [facility] [address] [place] [id number] [address] [place] [phone] October, Hyperparathyroidism E21.3 [place] [address] [place] [id number] [address] [place] [phone] October, Hyperparathyroidism E21.3 [facility] [address] [facility] [id number] [address] [place] [phone] Sep, Hyperparathyroidism E21.3 ; Hypercholesterolemia E78.0 and Arthritis M19.90 [facility] [place] [address] [place] [id number] [address] [place] [phone] Aug, [facility] [address] [facility] [id number] [address] [place] [phone] Aug, Deficiency of other specifie d B group vitamins E53.8 [facility] [address] [facility] [id number] [address] [place] [phone] Aug, [facility] [id number] [place] [address] Jul, Urinary frequency R35.0 [facility] [address] [facility] [id number] [address] [place] [address] Jul, Urinary frequency R35.0 [facility] [address] [facility] [id number] [address] [place] [address] Jul, [facility] [id number] [place] [address] Jul, [facility] [address] [facility] [id number] [address] [place] [address] Jun, Pain in left knee M25.562 [facility] [address] [id number] [address] [place] [address] Jun, [facility] [id number] [address] [place] [address] May, Swelling of left knee joint M25.462 [facility] [address] [facility] [id number] [address] [place] [address] May, [facility] [address] [facility] [id number] [address] [place] [address] May, [facility] [id number] [address] [place] [address] May, [facility] [address] [facility] [id number] [address] [place] [address] Apr, Renal insufficiency N28.9 an d Chronic kidney disease, stage 4 (severe) N18.4 [facility] [address] [facility] [id number] [address] [place] [address] Apr, Unspecified kidney failure N 19 [facility] [address] [facility] [id number] [address] [place] [address] Apr, Unspecified kidney failure N 19 [facility] [address] [facility] [id number] [address] [place] [address] Apr, [facility] [address] [facility] [id number] [address] [place] [address] Apr, Hyperparathyroidism, unspeci fied 252.00 [facility] [address] [facility] [id number] [address] [place] [address] Apr, [facility] [address] [facility] [id number] [address] [place] [address] Mar, [facility] [address] [facility] [id number] [address] [place] [address] Mar, [facility] [address] [facility] [id number] [address] [place] [address] Mar, Hyperparathyroidism, unspeci fied 252.00 [facility] [address] [facility] [id number] [address] [place] [address] Feb, [facility] [address] [facility] [id number] [address] [place] [address] Feb, Otalgia 388.70 [facility] [address] [facility] [id number] [address] [place] [address] Feb, [facility] [address] [facility] [id number] [address] [place] [address] Feb, [facility] [address] [facility] [id number] [address] [place] [address] Jan, [facility] [address] [facility] [id number] [address] [place] [address] Jan, Hyperparathyroidism, unspeci fied 252.00 [facility] [address] [id number] [address] [place] [address] Jan, [facility] [address] [id number] [address] [place] [address] Jan, Other B-complex deficiencies 266.2 and Hyperparathyroidism, unspecified 252.00 [facility] [address] [id number] [address] [place] [address] Jan, [facility] [address] [id number] [address] [place] [address] Jan, [facility] [address] [id number] [address] [place] [address] Jan, [facility] [address] [id number] [address] [place] [address] Dec, [facility] [address] [id number] [address] [place] [address] Dec, [facility] [address] [id number] [address] [place] [address] Dec, [facility] [address] [id number] [address] [place] [address] Nov, Routine check-up V70.0 and P re-op exam V72.84 [facility] [address] [id number] [address] [place] [address] Nov, [facility] [address] [id number] [address] [place] [address] Nov, [facility] [address] [id number] [address] [place] [address] October, [facility] [address] [id number] [address] [place] [address] October, Other B-complex deficiencies 266.2 [facility] [address] [id number] [address] [place] [address] October, [facility] [address] [id number] [address] [place] [address], [place] [address] 14 Sep, 2014 [facility] [address] [id number] [address] [place] [address], [place] [address] 13 Sep, 2014 [facility] [address] [id number] [address] [place] [address], [place] [address] 20 Aug, 2014 [facility] [address] [id number] [address] [place] [address], [place] [address] 20 Aug, 2014 [facility] [address] [id number] [address] [place] [address], [place] [address] 17 Aug, 2014 [facility] [address] [id number] [address] [place] [address], [place] [address] 17 Aug, 2014 [facility] [address] [id number] [address] [place] [address], [place] [address] 11 Aug, 2014 [facility] [address] [id number] [address] [place] [address], [place] [address] 11 Aug, 2014 [facility] [address] [id number] [address] [place] [address], [place] [address] 18 Jul, 2014 [facility] [address] [id number] [address] [place] [address], [place] [address] 18 Jul, 2014 [facility] [address] [id number] [address] [place] [address], [place] [address] 17 Jul, 2014 [facility] [address] [id number] [address] [place] [address], [place] [address] 17 Jul, 2014 [facility] [address] [id number] [address] [place] [address], [place] [address] 12 Jul, 2014 [facility] [address] [id number] [address] [place] [address], [place] [address] 12 Jul, 2014 [facility] [address] [id number] [address] [place] [address], [place] [address] 10 Jul, 2014 [facility] [address] [id number] [address] [place] [address], [place] [address] Jul, [facility] [address] [id number] [address] [place] [address], [place] [address] Jul, [facility] [address] [id number] [address] [place] [address], [place] [address] Jul, [facility] [address] [id number] [address] [place] [address], [place] [address] Jul, 2014 [facility] [address] [id number] [address] [place] [address], [place] [address] Jul, 2014 [facility] [address] [id number] [address] [place] [address], [place] [address] Jul, [facility] [address] [id number] [address] [place] [address], [place] [address] Jul, [facility] [address] [id number] [address] [place] [address], [place] [address] Jun, [facility] [address] [id number] [address] [place] [address], [place] [address] Jun, [facility] [address] [id number] [address] [place] [address], [place] [address] Jun, [facility] [address] [id number] [address] [place] [address], [place] [address] Jun, [facility] [address] [id number] [address] [place] [address], [place] [address] Jun, [facility] [address] [id number] [address] [place] [address], [place] [address] Jun, [facility] [address] [id number] [address] [place] [address], [place] [address] Jun, [facility] [address] [id number] [address] [place] [address], [place] [address] Jun, [facility] [address] [id number] [address] [place] [address], [place] [address] Jun, [facility] [address] [id number] [address] [place] [address], [place] [address] Jun, [facility] [address] [id number] [address] [place] [address], [place] [address] Jun, [facility] [address] [id number] [address] [place] [address], [place] [address] Jun, [facility] [address] [id number] [address] [place] [address], [place] [address] Jun, [facility] [address] [id number] [address] [place] [address], [place] [address] Jun, [facility] [address] [id number] [address] [place] [address], [place] [address] May, [facility] [address] [id number] [address] [place] [address], [place] [address] May, [facility] [address] [id number] [address] [place] [address], [place] [address] May, [facility] [address] [id number] [address] [place] [address], [place] [address] May, [facility] [address] [id number] [address] [place] [address], [place] [address] Apr, [facility] [address] [id number] [address] [place] [address], [place] [address] Apr, [facility] [address] [id number] [address] [place] [address], [place] [address] Apr, [facility] [address] [id number] [address] [place] [address], [place] [address] Apr, [facility] [address] [id number] [address] [place] [address], [place] [address] Apr, [facility] [address] [id number] [address] [place] [address], [place] [address] Apr, [facility] [address] [id number] [address] [place] [address], [place] [address] Mar, [facility] [address] [id number] [address] [place] [address], [place] [address] 24 Mar, 2014 [facility] [address] [id number] [address] [place] [address], [place] [address] Mar, [facility] [address] [id number] [address] [place] [address], [place] [address] Mar, [facility] [address] [id number] [address] [place] [address], [place] [address] 15 Mar, 2014 [facility] [address] [id number] [address] [place] [address], [place] [address] 15 Mar, 2014 [facility] [address] [id number] [address] [place] [address], [place] [address] Mar, [facility] [address] [id number] [address] [place] [address], [place] [address] Mar, [facility] [address] [id number] [address] [place] [address], [place] [address] Mar, [facility] [address] [id number] [address] [place] [address], [place] [address] 07 Mar, 2014 [facility] [address] [id number] [address] [place] [address] 07 Mar, 2014 [facility] [address] [id number] [address] [place] [address], [place] [address] 07 Mar, 2014 [facility] [address] [id number] [address] [place] [address] 06 Mar, 2014 [facility] [address] [id number] [address] [place] [address], [place] [address] Feb, [facility] [address] [id number] [address] [place] [address], [place] [address] Feb, [facility] [address] [id number] [address] [place] [address], [place] [address] 23 Feb, 2014 [facility] [address] [id number] [address] [place] [address], [place] [address] 23 Feb, 2014 [facility] [address] [id number] [facility] [place] [address] 19 Feb, 2014 [facility] [address] [id number] [address] [place] [address], [place] [address] 19 Feb, 2014 [facility] [address] [id number] [address] [place] [address], [place] [address] 13 Feb, 2014 [facility] [address] [id number] [address] [place] [address], [place] [address] 13 Feb, 2014 [facility] [address] [id number] [address] [place] [address], [place] [address] 12 Feb, 2014 [facility] [address] [id number] [address] [place] [address], [place] [address] Feb, [facility] [address] [id number] [address] [place] [address], [place] [address] 15 Jan, 2014 [facility] [address] [id number] [address] [place] [address], [place] [address] Jan, [facility] [address] [id number] [address] [place] [address], [place] [address] Dec, [facility] [address] [id number] [address] [place] [address], [place] [address] Dec, [facility] [address] [id number] [address] [place] [address], [place] [address] Dec, [facility] [address] [id number] [address] [place] [address], [place] [address] Dec, [facility] [address] [id number] [address] [place] [address], [place] [address] Dec, [facility] [address] [id number] [address] [place] [address], [place] [address] Dec, [facility] [address] [id number] [address] [place] [address], [place] [address] Nov, [facility] [address] [id number] [address] [place] [address], [place] [address] Nov, [facility] [address] [id number] [facility] [place] [address] Nov, [facility] [address] [id number] [facility] [place] [address] Nov, [facility] [address] [id number] [address] [place] [address], [place] [address] October, [facility] [address] [id number] [address] [place] [address], [place] [address] October, [facility] [address] [id number] [address] [place] [address], [place] [address] October, [facility] [address] [id number] [address] [place] [address], [place] [address] October, [facility] [address] [id number] [address] [place] [address], [place] [address] October, [facility] [address] [id number] [address] [place] [address], [place] [address] October, [facility] [address] [id number] [address] [place] [address], [place] [address] October, [facility] [address] [id number] [address] [place] [address], [place] [address] October, [facility] [address] [id number] [address] [place] [address], [place] [address] October, [facility] [address] [id number] [address] [place] [address], [place] [address] October, [facility] [address] [id number] [address] [place] [address], [place] [address] October, [facility] [address] [id number] [address] [place] [address], [place] [address] October, [facility] [address] [id number] [address] [place] [address], [place] [address] October, [facility] [address] [id number] [facility] [place] [address] October, [facility] [address] [id number] [address] [place] [address], [place] [address] October, [facility] [address] [id number] [address] [place] [address], [place] [address] October, [facility] [address] [id number] [address] [place] [address], [place] [address] Sep, [facility] [address] [id number] [address] [place] [address], [place] [address] Sep, [facility] [address] [id number] [address] [place] [address], [place] [address] Sep, [facility] [address] [id number] [address] [place] [address], [place] [address] Sep, [facility] [address] [id number] [address] [place] [address], [place] [address] Sep, [facility] [address] [id number] [address] [place] [address], [place] [address] Sep, [facility] [address] [id number] [address] [place] [address], [place] [address] Aug, [facility] [address] [id number] [address] [place] [address], [place] [address] Aug, [facility] [address] [id number] [address] [place] [address], [place] [address] Aug, [facility] [address] [id number] [address] [place] [address], [place] [address] Aug, [facility] [address] [id number] [address] [place] [address], [place] [address] Aug, [facility] [address] [id number] [address] [place] [address], [place] [address] Aug, [facility] [address] [id number] [address] [place] [address], [place] [address] 11 Jul, 2013 [facility] [address] [id number] [address] [place] [address], [place] [address] Jul, [facility] [address] [id number] [address] [place] [address], [place] [address] Jul, [facility] [address] [id number] [address] [place] [address], [place] [address] Jul, [facility] [address] [id number] [address] [place] [address], [place] [address] Jun, [facility] [address] [id number] [address] [place] [address], [place] [address] Jun, [facility] [address] [id number] [address] [place] [address], [place] [address] May, [facility] [address] [id number] [address] [place] [address], [place] [address] May, [facility] [address] [id number] [address] [place] [address], [place] [address] May, [facility] [address] [id number] [address] [place] [address], [place] [address] May, [facility] [address] [id number] [address] [place] [address], [place] [address] May, [facility] [address] [id number] [address] [place] [address], [place] [address] Apr, [facility] [address] [id number] [address] [place] [address], [place] [address] Apr, [facility] [address] [id number] [address] [place] [address], [place] [address] Apr, [facility] [address] [id number] [address] [place] [address], [place] [address] Apr, [facility] [address] [id number] [address] [place] [address], [place] [address] Apr, [facility] [address] [id number] [address] [place] [address], [place] [address] 04 Apr, 2013 [facility] [address] [id number] [address] [place] [address], [place] [address] 15 Mar, 2013 [facility] [address] [id number] [address] [place] [address], [place] [address] 15 Mar, 2013 [facility] [address] [id number] [address] [place] [address], [place] [address] 14 Mar, 2013 [facility] [address] [id number] [address] [place] [address], [place] [address] 14 Mar, 2013 [facility] [address] [id number] [address] [place] [address], [place] [address] 11 Mar, 2013 [facility] [address] [id number] [address] [place] [address], [place] [address] Mar, [facility] [address] [id number] [address] [place] [address], [place] [address] 23 Feb, 2013 [facility] [address] [id number] [address] [place] [address], [place] [address] 19 Feb, 2013 [facility] [address] [id number] [address] [place] [address], [place] [address] 04 Feb, 2013 [facility] [address] [id number] [address] [place] [address], [place] [address] 30 Jan, 2013 [facility] [address] [id number] [address] [place] [address], [place] [address] Jan, [facility] [address] [id number] [address] [place] [address], [place] [address] Jan, [facility] [address] [id number] [address] [place] [address], [place] [address] 16 Jan, 2013 [facility] [address] [id number] [address] [place] [address], [place] [address] Jan, [facility] [address] [id number] [address] [place] [address], [place] [address] Jan, [facility] [address] [id number] [address] [place] [address], [place] [address] Dec, [facility] [address] [id number] [address] [place] [address], [place] [address] Dec, [facility] [address] [id number] [address] [place] [address], [place] [address] Dec, [facility] [address] [id number] [address] [place] [address], [place] [address] Dec, [facility] [address] [id number] [address] [place] [address], [place] [address] Dec, [facility] [address] [id number] [address] [place] [address], [place] [address] Dec, [facility] [address] [id number] [address] [place] [address], [place] [address] Nov, [facility] [address] [id number] [address] [place] [address], [place] [address] Nov, [facility] [address] [id number] [address] [place] [address], [place] [address] Nov, [facility] [address] [id number] [address] [place] [address], [place] [address] Nov, [facility] [address] [id number] [address] [place] [address], [place] [address] Nov, [facility] [address] [id number] [address] [place] [address], [place] [address] Nov, [facility] [address] [id number] [address] [place] [address], [place] [address] October, [facility] [address] [id number] [address] [place] [address], [place] [address] October, [facility] [address] [id number] [address] [place] [address], [place] [address] October, [facility] [address] [id number] [address] [place] [address], [place] [address] October, [facility] [address] [id number] [address] [place] [address], [place] [address] October, [facility] [address] [id number] [address] [place] [address], [place] [address] Sep, [facility] [address] [id number] [address] [place] [address], [place] [address] Sep, [facility] [address] [id number] [address] [place] [address], [place] [address] Sep, [facility] [address] [id number] [address] [place] [address], [place] [address] Sep, [facility] [address] [id number] [address] [place] [address], [place] [address] Sep, [facility] [address] [id number] [address] [place] [address], [place] [id number] Aug, [facility] [address] [id number] [address] [place] [address], [place] [address] Aug, [facility] [address] [id number] [address] [place] [address], [place] [address] Aug, [facility] [address] [id number] [address] [place] [address], [place] [address] Jul, [facility] [address] [id number] [address] [place] [address], [place] [address] Jul, [facility] [address] [id number] [address] [place] [address], [place] [address] Jul, [facility] [address] [id number] [address] [place] [address], [place] [address] 08 Jul, 2012 [facility] [address] [id number] [address] [place] [address], [place] [address] 06 Jul, 2012 [facility] [address] [id number] [address] [place] [phone] Jul, [facility] [address] [id number] [address] [place] [address], [place] [address] Jun, [facility] [address] [id number] [address] [place] [address] Apr, [facility] [address] [id number] [address] [place] [address], [place] [address] Apr, [facility] [address] [id number] [address] [place] [address], [place] [address] Apr, [facility] [address] [id number] [address] [place] [address], [place] [address] Apr, [facility] [address] [id number] [address] [place] [address], [place] [address] Mar, [facility] [address] [id number] [address] [place] [address], [place] [address] Mar, [facility] [address] [id number] [address] [place] [address], [place] [address] Mar, [facility] [address] [id number] [address] [place] [address], [place] [address] Mar, [facility] [address] [id number] [address] [place] [address], [place] [address] Mar, [facility] [address] [id number] [address] [place] [address], [place] [address] Feb, [facility] [address] [id number] [address] [place] [address] Jan, [facility] [address] [id number] [address] [place] [address] Jan, [facility] [address] [id number] [address] [place] [address] Jan, [facility] [address] [id number] [address] [place] [address], [place] [address] Dec, [facility] [address] [id number] [address] [place] [address] Nov, [facility] [address] [id number] [address] [place] [address] Nov, [facility] [address] [id number] [address] [place] [address] Nov, [facility] [address] [id number] [address] [place] [address] Nov, [facility] [address] [id number] [address] [place] [address] Nov, [facility] [address] [id number] [address] [place] [address] October, [facility] [address] [id number] [address] [place] [address] October, [facility] [address] [id number] [address] [place] [address] October, [facility] [address] [id number] [address] [place] [address] October, [facility] [address] [id number] [address] [place] [address] October, IMMUNIZATIONS No Known Immunizations SOCIAL HISTORY [...]
--- OUTSIDE RECORDS SUMMARY | 2020-01-25 07:32 | XMS REPORT ---
Author Author Velma CORDERO Organization [facility] Address [address] [place] [address] Care Team Providers Care Senior Marketing Coordinator Name Role Phone STEPHAN CORDERO Unavailable PROBLEMS Type Condition ICD9-CM Code RJC28-VX Code Onset Dates Condition S tatus SNOMED Code Problem Corns L84 Active 498266317 Problem Primary insomnia F51.01 Active 397 2004 Problem Hyperparathyroidism E21.3 Active 18177217 Problem Hypercholesteremia E78.0 Active 1 2618653 Problem Mood disorder F39 Active 151630 05 Problem Arthritis M19.90 Active 8826737 Problem 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 Active 94643914 Problem Myalgia M79.1 Active 30765993 Problem Chronic kidney disease, stage 4 (severe) N18.4 Active 128012439 Problem Primary osteoarthritis of left knee M17.12 Active [id number] Problem Irritable bowel syndrome with both constipation and diarrh ea K58.2 Active 89042719 Problem Other chronic pain G89.29 Active 8 6734452 Problem BPV (benign positional vertigo), bilateral H81.13 Active 864876937 Problem Hyperparathyroidism, unspecified E21.3 Active 02732363 Problem 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 [address] [facility] [id number] [address] [place] [id number] Sep, Hyperparathyroidism, unspeci fied E21.3 [facility] [address] [facility] [id number] [address] [place] [id number] Aug, Hyperparathyroidism, unspeci fied E21.3 [place] [address] [id number] [address] [place] [address] Aug, Pain in left knee M25.562 ; Other chronic pain G89.29 ; Unspecified inflammatory spondylopathy, sacral and sacrococcygeal region M46.98 ; Chronic kidney disease, stage 4 (severe) N18.4 and Hyperparathyroidism, unspecified E21.3 [place] [address] [id number] [address] [place] [id number] Jul, [place] [address] [id number] [address] [place] [address] Jul, Arthritis M19.90 [place] [address] [facility] [id number] [address] [place] [address] Jun, Knee pain, left M25.562 [place] [address] [id number] [address] [place] [id number] May, Arthritis M19.90 [place] [address] [facility] [id number] [address] [place] [id number] Apr, Well woman exam without gyne cological exam Z00.00 and Screening for breast cancer Z12.39 [place] [address] [facility] [id number] [address] [place] [address] Mar, Arthritis M19.90 [place] [address] [id number] [address] [place] [id number] Mar, Arthritis M19.90 [place] [address] [id number] [address] [place] [address] Mar, [place] [address] [facility] [id number] [address] [place] [address] Mar, Arthritis M19.90 and Encount er for immunization Z23 [place] [address] [facility] [id number] [address] [place] [address] Feb, Arthritis M19.90 [facility] [address] [id number] [address] [place] [id number] Feb, [facility] [address] [id number] [address] [place] [address] Feb, Other specified disorders of bone density and structure, unspecified site M85.80 [facility] [address] [id number] [address] [place] [address] Jan, Arthritis M19.90 [facility] [address] [id number] [address] [place] [id number] Dec, Arthritis M19.90 [facility] [address] [id number] [address] [place] [id number] Nov, Inflammatory spondylopathy o f sacral region M46.98 [facility] [address] [id number] [address] [place] [id number] Nov, [facility] [address] [facility] [id number] [address] [place] [id number] Nov, Labyrinthitis of left ear H8 3.02 [facility] [address] [facility] [id number] [address] [place] [address] Nov, Arthritis M19.90 [facility] [address] [facility] [id number] [address] [place] [id number] 15 Sep, [address] [facility] [address] [facility] [id number] [address] [place] [address] Sep, Renal insufficiency N28.9 an d Unspecified kidney failure N19 [facility] [address] [id number] [address] [place] [address] Sep, Renal insufficiency N28.9 an d Unspecified kidney failure N19 [facility] [address] [facility] [id number] [address] [place] [address] Sep, Arthritis M19.90 [facility] [address] [facility] [id number] [address] [place] [id number] 18 Aug, 2018 [address]71.82 [facility] [address] [id number] [address] [place] [id number] 08 Aug, 2018 [facility] [address] [facility] [id number] [address] [place] [id number] 27 Jul, 2018 Labyrinthitis of left ear H8 3.02 [facility] [address] [facility] [id number] [address] [place] [id number] 22 Jul, 2018 Labyrinthitis of left ear H8 3.02 [facility] [address] [id number] [address] [place] [id number] 19 Jul, 2018 Exercise counseling Z71.82 [place] [address] [facility] [id number] [address] [place] [id number] 18 Jul, 2018 [place] [address] [facility] [id number] [address] [place] [id number] 14 Jul, 2018 Arthritis M19.90 [place] [address] [facility] [id number] [address] [place] [id number] 13 Jul, 2018 Encounter for Medicare annua l wellness exam Z00.00 ; Chronic kidney disease, stage 4 (severe) N18.4 ; Body mass index (BMI) of 40.0-44.9 in adult Z68.41 ; Hyperparathyroidism E21.3 and BMI 40.0-44.9, adult Z68.41 [place] [address] [facility] [id number] [address] [place] [id number] 13 Jul, 2018 Encounter for Medicare annua l wellness exam Z00.00 ; Chronic kidney disease, stage 4 (severe) N18.4 ; Hyperparathyroidism E21.3 ; Body mass index (BMI) of 40.0-44.9 in adult Z68.41 and Encounter for immunization Z23 [facility] [address] [facility] [id number] [address] [place] [id number] 11 Jul, 2018 Tail bone pain M53.3 [facility] [address] [facility] [id number] [address] [place] [id number] Jun, Exercise counseling Z71.82 [facility] [address] [id number] [address] [place] [id number] Jun, Labyrinthitis of left ear H8 3.02 [facility] [address] [id number] [address] [place] [id number] Jun, Tail bone pain M53.3 ; Irrit able bowel syndrome with both constipation and diarrhea K58.2 and Dysfunction of left eustachian tube H69.82 [facility] [address] [id number] [address] [place] [id number] Jun, Exercise counseling Z71.82 [facility] [address] [id number] [address] [place] [phone] Jun, Arthritis M19.90 [facility] [address] [id number] [address] [place] [id number] Jun, Irritable bowel syndrome wit h both constipation and diarrhea K58.2 ; Tail bone pain M53.3 and Dysfunction of left eustachian tube H69.82 [facility] [address] [id number] [address] [place] [address] Jun, Exercise counseling Z71.82 [facility] [address] [id number] [address] [place] [address] Jun, Exercise counseling Z71.82 [facility] [address] [id number] [address] [place] [id number] Jun, Labyrinthitis of left ear H8 3.02 [facility] [address] [id number] [address] [place] [address] May, Exercise counseling Z71.82 [facility] [address] [id number] [address] [place] [address] May, Arthritis M19.90 [facility] [address] [id number] [address] [place] [id number] May, Exercise counseling Z71.82 [facility] [address] [id number] [address] [place] [address] May, Exercise counseling Z71.82 [facility] [address] [id number] [address] [place] [id number] May, Labyrinthitis of left ear H8 3.02 [facility] [address] [id number] [address] [place] [address] May, Exercise counseling Z71.82 [facility] [address] [id number] [address] [place] [id number] Apr, Arthritis M19.90 [facility] [address] [id number] [address] [place] [address] Apr, Exercise counseling Z71.82 [facility] [address] [id number] [address] [place] [address] Apr, Exercise counseling Z71.82 [facility] [address] [id number] [address] [place] [id number] Apr, Primary osteoarthritis of le ft knee M17.12 [facility] [address] [id number] [address] [place] [id number] 08 Apr, 2018 Labyrinthitis of left ear H8 3.02 [facility] [address] [id number] [address] [place] [id number] 30 Mar, [address] [facility] [address] [id number] [address] [place] [id number] Mar, [facility] [address] [id number] [address] [place] [id number] Mar, Chronic kidney disease, stag e 4 (severe) N18.4 [facility] [address] [id number] [address] [place] [id number] 15 Mar, 2018 Chronic kidney disease, stag e 4 (severe) N18.4 [facility] [address] [id number] Mar, Labyrinthitis of left ear H8 3.02 [place] [address] [address] Mar, Chronic kidney disease, stag e 4 (severe) N18.4 ; Knee pain, left anterior M25.562 ; 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 and Encounter for immunization Z23 [place] [address] [address] Mar, Arthritis M19.90 [place] [address] [address] Feb, Labyrinthitis of left ear H8 3.02 [place] [address] [address] Feb, Arthritis M19.90 [place] [address] [address] Jan, Labyrinthitis of left ear H8 3.02 [place] [address] [address] Jan, Arthritis M19.90 [place] [address] [address] Dec, Labyrinthitis of left ear H8 3.02 [place] [address] [address] Nov, Arthritis M19.90 [place] [address] [place] [id number] [place] [address] Nov, Labyrinthitis of left ear H8 3.02 [place] [address] [place] [id number] [place] [address] Nov, BMI 40.0-44.9, adult Z68.41 ; Chronic kidney disease, stage 4 (severe) N18.4 and Acute right-sided thoracic back pain M54.6 [facility] [address] [id number] [address] [place] [address] October, Labyrinthitis of left ear H8 3.[address] [facility] [address] [facility] [id number] [address] [place] [address] Sep, BPV (benign positional verti go), bilateral H81.13 ; Dysfunction of left eustachian tube H69.82 and BMI 40.0-44.9, adult Z68.41 [facility] [address] [facility] [id number] [address] [place] [id number] Sep, Labyrinthitis of left ear H8 3.[address] [facility] [address] [facility] [id number] [address] [place] [id number] Sep, [place] [address] [place] [id number] [address] [place] [id number] Sep, [facility] [address] [facility] [id number] [address] [place] [address] Sep, Chronic kidney disease, stag e 4 (severe) N18.4 [place] [address] [facility] [id number] [address] [place] [address] Sep, Chronic kidney disease, stag e 4 (severe) N18.4 [place] [address] [facility] [id number] [address] [place] [phone] Aug, Labyrinthitis of left ear H8 3.[address] [facility] [address] [id number] [address] [place] [id number] Aug, [facility] [address] [facility] [id number] [address] [place] [id number] Jul, [facility] [address] [facility] [id number] [address] [place] [address] Jul, Arthritis M19.90 and Labyrin thitis of left ear H83.02 [place] [address] [facility] [id number] [address] [place] [id number] Jul, [place] [address] [place] [id number] [place] [address] Jun, [place] [address] [place] [id number] [address] [place] [address] Jun, Arthritis M19.90 and Labyrin thitis of left ear H83.02 [place] [address] [address] Jun, Pre-op evaluation Z01.818 ; BMI 40.0-44.9, adult Z68.41 and Encounter for immunization Z23 [place] [address] [place] [id number] [place] [address] May, Arthritis M19.90 and Labyrin thitis of left ear H83.02 [place] [address] [address] Apr, Labyrinthitis of left ear H8 3.02 [place] [address] [address] Apr, Arthritis M19.90 and Labyrin thitis of left ear H83.02 [place] [address] [place] [id number] [place] [address] Mar, Arthritis M19.90 and Labyrin thitis of left ear H83.02 [place] [address] [place] [id number] [address] [place] [address] Mar, Chronic kidney disease, stag e 4 (severe) N18.4 [place] [address] [place] [id number] [address] [place] [address] 06 Feb, 2017 Arthritis M19.90 and Labyrin thitis of left ear H83.02 [place] [address] [place] [id number] [address] [place] [address] Jan, Labyrinthitis of left ear H8 3.02 and 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 [facility] [address] [id number] [address] [place] [address] Dec, Arthritis M19.90 [facility] [address] [id number] [address] [place] [address] Dec, BPV (benign positional verti go), bilateral H81.13 [facility] [address] [id number] [address] [place] [address] Dec, [facility] [address] [id number] [address] [place] [address] Dec, [facility] [address] [id number] [address] [place] [address] Dec, [facility] [address] [facility] [id number] [address] [place] [address] Nov, Arthritis M19.90 and Deficie ncy 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 [facility] [address] [id number] [address] [place] [address] Nov, Arthritis M19.90 [facility] [address] [id number] [address] [place] [address] Nov, Hyperparathyroidism E21.3 [facility] [address] [facility] [id number] [address] [place] [address] October, [facility] [address] [facility] [id number] [address] [place] [address] October, Hyperparathyroidism E21.3 [facility] [address] [id number] [address] [place] [address] October, [facility] [address] [facility] [id number] [address] [place] [address] October, Renal insufficiency N28.9 an d Hyperparathyroidism E21.3 [facility] [address] [facility] [id number] [address] [place] [id number] October, [facility] [address] [place] [id number] [address] [place] [address] October, Renal insufficiency N28.9 an d Hyperparathyroidism E21.3 [facility] [address] [place] [id number] [address] [place] [address] October, Arthritis M19.90 [facility] [address] [address] Sep, [facility] [address] [address] Sep, Lumbar neuritis M54.16 ; Tho racic abscess J86.9 and 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 [facility] [address] [place] [id number] [address] [place] [address] Sep, [facility] [address] [address] Aug, Arthritis M19.90 [facility] [address] [place] [id number] [address] [place] [address] Aug, Hyperparathyroidism E21.3 [facility] [address] [address] Aug, Hyperparathyroidism E21.3 [facility] [address] [address] Aug, Arthritis M19.90 [facility] [address] [place] [id number] [address] [place] [address] Jul, Mass of throat R22.1 [facility] [address] [address] Jul, [facility] [address] [place] [id number] [address] [place] [address] Jul, Arthritis M19.90 [facility] [address] [place] [id number] [address] [place] [address] Jun, Arthritis M19.90 [facility] [address] [facility] [id number] [address] [place] [address] Jun, [facility] [address] [facility] [id number] [address] [place] [address] Jun, Renal insufficiency N28.9 an d 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 [facility] [address] [facility] [id number] [address] [place] [address] 05 Jun, 2016 Medicare welcome exam Z00.00 ; Encounter for immunization Z23 ; Arthritis M19.90 ; Medicare annual wellness visit, initial Z00.00 ; Medicare annual wellness visit, subsequent Z00.00 and 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 [facility] [address] [facility] [id number] [address] [place] [address] 29 May, 2016 Renal insufficiency N28.9 an d 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 [facility] [address] [facility] [id number] [address] [place] [address] May, Renal insufficiency N28.9 [facility] [address] [facility] [id number] [address] [place] [address] May, Renal insufficiency N28.9 [facility] [address] [facility] [id number] [address] [place] [id number] [address] May, 2016 [facility] [address] [facility] [id number] [address] [place] [address] Apr, [facility] [address] [facility] [id number] [address] [place] [id number] [address] Apr, 2016 [facility] [address] [facility] [id number] [address] [place] [id number] 14 Apr, 2016 Mass of throat R22.1 [facility] [address] [facility] [id number] [address] [place] [address] [address] [facility] [address] [facility] [id number] [address] [place] [id number] 10 Apr, 2016 Mass of throat R22.1 [facility] [address] [id number] [address] [place] [id number] 04 Apr, 2016 Mass of throat R22.1 [facility] [address] [id number] [address] [place] [id number] Mar, [facility] [address] [facility] [id number] [address] [place] [id number] Mar, [facility] [address] [id number] [address] [place] [phone] Mar, [facility] [address] [facility] [id number] [address] [place] [id number] 24 Mar, 2016 Parathyroid abnormality E21. 5 and Encounter for immunization Z23 [facility] [address] [facility] [id number] [address] [place] [id number] 17 Mar, 2016 [facility] [address] [facility] [id number] [address] [place] [address] Mar, [facility] [address] [facility] [id number] [address] [place] [id number] 21 Feb, 2016 Renal insufficiency N28.9 an d Hyperparathyroidism E21.3 [facility] [address] [id number] [address] [place] [id number] [address] Feb, [address] [facility] [address] [facility] [id number] [address] [place] [id number] 15 Feb, 2016 Renal insufficiency N28.9 an d Hyperparathyroidism E21.3 [facility] [address] [id number] [address] [place] [id number] [address], [address] [facility] [address] [id number] [address] [place] [id number] [address], [address] [facility] [address] [facility] [id number] [address] [place] [id number] [address], [address] [facility] [address] [facility] [id number] [address] [place] [id number] Jan, [facility] [address] [facility] [id number] [address] [place] [id number] Jan, Arthritis M19.90 ; Lumbago w ith sciatica, right side M54.41 and Other chronic pain G89.29 [facility] [address] [facility] [id number] [address] [place] [id number] Jan, [facility] [address] [facility] [id number] [address] [place] [id number] Dec, Arthritis M19.90 ; Lumbago w ith sciatica, right side M54.41 and Other chronic pain G89.29 [place] [address] [place] [id number] [address] [place] [id number] 16 Nov, 2015 Deficiency of other specifie d B group vitamins E53.8 ; Primary insomnia F51.01 ; Mood disorder F39 and Lumbago with sciatica, right side M54.41 [place] [address] [place] [id number] [address] [place] [id number] Nov, Hyperparathyroidism E21.3 [place] [address] [place] [id number] [address] [place] [id number] Nov, Unspecified kidney failure N 19 and Hyperparathyroidism E21.3 [place] [address] [place] [id number] [address] [place] [id number] October, Hyperparathyroidism E21.3 [place] [address] [place] [id number] [address] [place] [id number] October, [facility] [address] [place] [id number] [address] [place] [id number] October, Hyperparathyroidism E21.3 [place] [address] [place] [id number] [address] [place] [id number] October, Hyperparathyroidism E21.3 [facility] [address] [facility] [id number] [address] [place] [id number] Sep, Hyperparathyroidism E21.3 ; Hypercholesterolemia E78.0 and Arthritis M19.[address] [place] [address] [place] [id number] [address] [place] [address] Aug, [facility] [address] [facility] [id number] [address] [place] [address] Aug, Deficiency of other specifie d B group vitamins E53.8 [facility] [address] [facility] [id number] [address] [place] [address] Aug, [facility] [address] [id number] [place] [address] Jul, Urinary frequency R35.0 [facility] [address] [facility] [id number] [address] [place] [address] Jul, Urinary frequency R35.0 [facility] [address] [facility] [id number] [address] [place] [address] Jul, [facility] [id number] [place] [address] Jul, [facility] [address] [facility] [id number] [address] [place] [address] Jun, Pain in left knee M25.562 [facility] [address] [place] [id number] [address] [place] [address] Jun, [facility] [address] [place] [id number] [address] [place] [address] May, Swelling of left knee joint M25.462 [facility] [address] [facility] [id number] [address] [place] [address] May, [facility] [address] [facility] [id number] [address] [place] [address] May, [facility] [address] [place] [id number] [address] [place] [address] May, [facility] [address] [facility] [id number] [address] [place] [address] Apr, Renal insufficiency N28.9 an d Chronic kidney disease, stage 4 (severe) N18.4 [facility] [address] [facility] [id number] [address] [place] [address] Apr, Unspecified kidney failure N 19 [facility] [address] [facility] [id number] [address] [place] [address] Apr, Unspecified kidney failure N 19 [facility] [address] [facility] [id number] [address] [place] [address] Apr, [facility] [address] [facility] [id number] [address] [place] [address] Apr, Hyperparathyroidism, unspeci fied 252.00 [facility] [address] [facility] [id number] [address] [place] [address] Apr, [facility] [address] [facility] [id number] [address] [place] [address] Mar, [facility] [address] [facility] [id number] [address] [place] [address] Mar, [facility] [address] [facility] [id number] [address] [place] [address] Mar, Hyperparathyroidism, unspeci fied 252.00 [facility] [address] [facility] [id number] [address] [place] [address] Feb, [facility] [address] [facility] [id number] [address] [place] [address] Feb, Otalgia 388.70 [facility] [address] [facility] [id number] [address] [place] [address] Feb, [facility] [address] [facility] [id number] [address] [place] [address] Feb, [facility] [address] [facility] [id number] [address] [place] [address] Jan, [facility] [address] [facility] [id number] [address] [place] [address] Jan, Hyperparathyroidism, unspeci fied 252.00 [facility] [address] [id number] [address] [place] [address] Jan, [facility] [address] [id number] [address] [place] [address] Jan, Other B-complex deficiencies 266.2 and Hyperparathyroidism, unspecified 252.00 [facility] [address] [id number] [address] [place] [address] Jan, [facility] [address] [id number] [address] [place] [address] Jan, [facility] [address] [id number] [address] [place] [address] Jan, [facility] [address] [id number] [address] [place] [address] Dec, [facility] [address] [id number] [address] [place] [address] Dec, [facility] [address] [id number] [address] [place] [address] Dec, [facility] [address] [id number] [address] [place] [address] Nov, Routine check-up V70.0 and P re-op exam V72.84 [facility] [address] [id number] [address] [place] [address] Nov, [facility] [address] [id number] [address] [place] [address] Nov, [facility] [address] [id number] [address] [place] [address] October, [facility] [address] [id number] [address] [place] [address] October, Other B-complex deficiencies 266.2 [facility] [address] [id number] [address] [place] [address] October, [facility] [address] [id number] [address] [place] [address], [place] [address] 14 Sep, 2014 [facility] [address] [id number] [address] [place] [address], [place] [address] 13 Sep, 2014 [facility] [address] [id number] [address] [place] [address], [place] [address] 20 Aug, 2014 [facility] [address] [id number] [address] [place] [address], [place] [address] 20 Aug, 2014 [facility] [address] [id number] [address] [place] [address], [place] [address] 17 Aug, 2014 [facility] [address] [id number] [address] [place] [address], [place] [address] 17 Aug, 2014 [facility] [address] [id number] [address] [place] [address], [place] [address] 11 Aug, 2014 [facility] [address] [id number] [address] [place] [address], [place] [address] 11 Aug, 2014 [facility] [address] [id number] [address] [place] [address], [place] [address] 18 Jul, 2014 [facility] [address] [id number] [address] [place] [address], [place] [address] 18 Jul, 2014 [facility] [address] [id number] [address] [place] [address], [place] [address] 17 Jul, 2014 [facility] [address] [id number] [address] [place] [address], [place] [address] 17 Jul, 2014 [facility] [address] [id number] [address] [place] [address], [place] [address] 12 Jul, 2014 [facility] [address] [id number] [address] [place] [address], [place] [address] 12 Jul, 2014 [facility] [address] [id number] [address] [place] [address], [place] [address] 10 Jul, 2014 [facility] [address] [id number] [address] [place] [address], [place] [address] Jul, [facility] [address] [id number] [address] [place] [address], [place] [address] Jul, [facility] [address] [id number] [address] [place] [address], [place] [address] Jul, [facility] [address] [id number] [address] [place] [address], [place] [address] Jul, 2014 [facility] [address] [id number] [address] [place] [address], [place] [address] Jul, 2014 [facility] [address] [id number] [address] [place] [address], [place] [address] Jul, [facility] [address] [id number] [address] [place] [address], [place] [address] Jul, [facility] [address] [id number] [address] [place] [address], [place] [address] Jun, [facility] [address] [id number] [address] [place] [address], [place] [address] Jun, [facility] [address] [id number] [address] [place] [address], [place] [address] Jun, [facility] [address] [id number] [address] [place] [address], [place] [address] Jun, [facility] [address] [id number] [address] [place] [address], [place] [address] Jun, [facility] [address] [id number] [address] [place] [address], [place] [address] Jun, [facility] [address] [id number] [address] [place] [address], [place] [address] Jun, [facility] [address] [id number] [address] [place] [address], [place] [address] Jun, [facility] [address] [id number] [address] [place] [address], [place] [address] Jun, [facility] [address] [id number] [address] [place] [address], [place] [address] Jun, [facility] [address] [id number] [address] [place] [address], [place] [address] Jun, [facility] [address] [id number] [address] [place] [address], [place] [address] Jun, [facility] [address] [id number] [address] [place] [address], [place] [address] Jun, [facility] [address] [id number] [address] [place] [address], [place] [address] Jun, [facility] [address] [id number] [address] [place] [address], [place] [address] May, [facility] [address] [id number] [address] [place] [address], [place] [address] May, [facility] [address] [id number] [address] [place] [address], [place] [address] May, [facility] [address] [id number] [address] [place] [address], [place] [address] May, [facility] [address] [id number] [address] [place] [address], [place] [address] Apr, [facility] [address] [id number] [address] [place] [address], [place] [address] Apr, [facility] [address] [id number] [address] [place] [address], [place] [address] Apr, [facility] [address] [id number] [address] [place] [address], [place] [address] Apr, [facility] [address] [id number] [address] [place] [address], [place] [address] Apr, [facility] [address] [id number] [address] [place] [address], [place] [address] Apr, [facility] [address] [id number] [address] [place] [address], [place] [address] Mar, [facility] [address] [id number] [address] [place] [address], [place] [address] 24 Mar, 2014 [facility] [address] [id number] [address] [place] [address], [place] [address] Mar, [facility] [address] [id number] [address] [place] [address], [place] [address] Mar, [facility] [address] [id number] [address] [place] [address], [place] [address] 15 Mar, 2014 [facility] [address] [id number] [address] [place] [address], [place] [address] 15 Mar, 2014 [facility] [address] [id number] [address] [place] [address], [place] [address] Mar, [facility] [address] [id number] [address] [place] [address], [place] [address] Mar, [facility] [address] [id number] [address] [place] [address], [place] [address] Mar, [facility] [address] [id number] [address] [place] [address], [place] [address] 07 Mar, 2014 [facility] [address] [id number] [address] [place] [id number] 07 Mar, 2014 [facility] [address] [id number] [address] [place] [address], [place] [address] 07 Mar, 2014 [facility] [address] [id number] [address] [place] [address] 06 Mar, 2014 [facility] [address] [id number] [address] [place] [address], [place] [address] Feb, [facility] [address] [id number] [address] [place] [address], [place] [address] Feb, [facility] [address] [id number] [address] [place] [address], [place] [address] 23 Feb, 2014 [facility] [address] [id number] [address] [place] [address], [place] [address] 23 Feb, 2014 [facility] [address] [id number] [facility] [place] [address] 19 Feb, 2014 [facility] [address] [id number] [address] [place] [address], [place] [address] 19 Feb, 2014 [facility] [address] [id number] [address] [place] [address], [place] [address] 13 Feb, 2014 [facility] [address] [id number] [address] [place] [address], [place] [address] 13 Feb, 2014 [facility] [address] [id number] [address] [place] [address], [place] [address] 12 Feb, 2014 [facility] [address] [id number] [address] [place] [address], [place] [address] Feb, [facility] [address] [id number] [address] [place] [address], [place] [address] 15 Jan, 2014 [facility] [address] [id number] [address] [place] [address], [place] [address] Jan, [facility] [address] [id number] [address] [place] [address], [place] [address] Dec, [facility] [address] [id number] [address] [place] [address], [place] [address] Dec, [facility] [address] [id number] [address] [place] [address], [place] [address] Dec, [facility] [address] [id number] [address] [place] [address], [place] [address] Dec, [facility] [address] [id number] [address] [place] [address], [place] [address] Dec, [facility] [address] [id number] [address] [place] [address], [place] [address] Dec, [facility] [address] [id number] [address] [place] [address], [place] [address] Nov, [facility] [address] [id number] [address] [place] [address], [place] [address] Nov, [facility] [address] [id number] [facility] [place] [address] Nov, [facility] [address] [id number] [facility] [place] [address] Nov, [facility] [address] [id number] [address] [place] [address], [place] [address] October, [facility] [address] [id number] [address] [place] [address], [place] [address] October, [facility] [address] [id number] [address] [place] [address], [place] [address] October, [facility] [address] [id number] [address] [place] [address], [place] [address] October, [facility] [address] [id number] [address] [place] [address], [place] [address] October, [facility] [address] [id number] [address] [place] [address], [place] [address] October, [facility] [address] [id number] [address] [place] [address], [place] [address] October, [facility] [address] [id number] [address] [place] [address], [place] [address] October, [facility] [address] [id number] [address] [place] [address], [place] [address] October, [facility] [address] [id number] [address] [place] [address], [place] [address] October, [facility] [address] [id number] [address] [place] [address], [place] [address] October, [facility] [address] [id number] [address] [place] [address], [place] [address] October, [facility] [address] [id number] [address] [place] [address], [place] [address] October, [facility] [address] [id number] [facility] [place] [address] October, [facility] [address] [id number] [address] [place] [address], [place] [address] October, [facility] [address] [id number] [address] [place] [address], [place] [address] October, [facility] [address] [id number] [address] [place] [address], [place] [address] Sep, [facility] [address] [id number] [address] [place] [address], [place] [address] Sep, [facility] [address] [id number] [address] [place] [address], [place] [address] Sep, [facility] [address] [id number] [address] [place] [address], [place] [address] Sep, [facility] [address] [id number] [address] [place] [address], [place] [address] Sep, [facility] [address] [id number] [address] [place] [address], [place] [address] Sep, [facility] [address] [id number] [address] [place] [address], [place] [address] Aug, [facility] [address] [id number] [address] [place] [address], [place] [address] Aug, [facility] [address] [id number] [address] [place] [address], [place] [address] Aug, [facility] [address] [id number] [address] [place] [address], [place] [address] Aug, [facility] [address] [id number] [address] [place] [address], [place] [address] Aug, [facility] [address] [id number] [address] [place] [address], [place] [address] Aug, [facility] [address] [id number] [address] [place] [address], [place] [address] 11 Jul, 2013 [facility] [address] [id number] [address] [place] [address], [place] [address] Jul, [facility] [address] [id number] [address] [place] [address], [place] [address] Jul, [facility] [address] [id number] [address] [place] [address], [place] [address] Jul, [facility] [address] [id number] [address] [place] [address], [place] [address] Jun, [facility] [address] [id number] [address] [place] [address], [place] [address] Jun, [facility] [address] [id number] [address] [place] [address], [place] [address] May, [facility] [address] [id number] [address] [place] [address], [place] [address] May, [facility] [address] [id number] [address] [place] [address], [place] [address] May, [facility] [address] [id number] [address] [place] [address], [place] [address] May, [facility] [address] [id number] [address] [place] [address], [place] [address] May, [facility] [address] [id number] [address] [place] [address], [place] [address] Apr, [facility] [address] [id number] [address] [place] [address], [place] [address] Apr, [facility] [address] [id number] [address] [place] [address], [place] [address] Apr, [facility] [address] [id number] [address] [place] [address], [place] [address] Apr, [facility] [address] [id number] [address] [place] [address], [place] [address] Apr, [facility] [address] [id number] [address] [place] [address], [place] [address] 04 Apr, 2013 [facility] [address] [id number] [address] [place] [address], [place] [id number] 15 Mar, 2013 [facility] [address] [id number] [address] [place] [address], [place] [address] 15 Mar, 2013 [facility] [address] [id number] [address] [place] [address], [place] [address] 14 Mar, 2013 [facility] [address] [id number] [address] [place] [address], [place] [address] 14 Mar, 2013 [facility] [address] [id number] [address] [place] [address], [place] [address] 11 Mar, 2013 [facility] [address] [id number] [address] [place] [address], [place] [address] Mar, [facility] [address] [id number] [address] [place] [address], [place] [address] 23 Feb, 2013 [facility] [address] [id number] [address] [place] [address], [place] [address] 19 Feb, 2013 [facility] [address] [id number] [address] [place] [address], [place] [address] 04 Feb, 2013 [facility] [address] [id number] [address] [place] [address], [place] [id number] 30 Jan, 2013 [facility] [address] [id number] [address] [place] [address], [place] [address] Jan, [facility] [address] [id number] [address] [place] [address], [place] [address] Jan, [facility] [address] [id number] [address] [place] [address], [place] [id number] 16 Jan, 2013 [facility] [address] [id number] [address] [place] [address], [place] [id number] Jan, [facility] [address] [id number] [address] [place] [address], [place] [address] Jan, [facility] [address] [id number] [address] [place] [address], [place] [address] Dec, [facility] [address] [id number] [address] [place] [address], [place] [address] Dec, [facility] [address] [id number] [address] [place] [address], [place] [address] Dec, [facility] [address] [id number] [address] [place] [address], [place] [address] Dec, [facility] [address] [id number] [address] [place] [address], [place] [id number] Dec, [facility] [address] [id number] [address] [place] [address], [place] [address] Dec, [facility] [address] [id number] [address] [place] [address], [place] [address] Nov, [facility] [address] [id number] [address] [place] [address], [place] [address] Nov, [facility] [address] [id number] [address] [place] [address], [place] [address] Nov, [facility] [address] [id number] [address] [place] [address], [place] [id number] Nov, [facility] [address] [id number] [address] [place] [address], [place] [address] Nov, [facility] [address] [id number] [address] [place] [address], [place] [address] Nov, [facility] [address] [id number] [address] [place] [address], [place] [address] October, [facility] [address] [id number] [address] [place] [address], [place] [address] October, [facility] [address] [id number] [address] [place] [address], [place] [address] October, [facility] [address] [id number] [address] [place] [address], [place] [address] October, [facility] [address] [id number] [address] [place] [address], [place] [address] October, [facility] [address] [id number] [address] [place] [address], [place] [id number] Sep, [facility] [address] [id number] [address] [place] [address], [place] [address] Sep, [facility] [address] [id number] [address] [place] [address], [place] [id number] Sep, [facility] [address] [id number] [address] [place] [address], [place] [id number] Sep, [facility] [address] [id number] [address] [place] [address], [place] [address] Sep, [facility] [address] [id number] [address] [place] [address], [place] [address] Aug, [facility] [address] [address] [id number] [address] [place] [address], [place] [id number] Aug, [facility] [address] [id number] [address] [place] [address], [place] [id number] Aug, [facility] [address] [id number] [address] [place] [address], [place] [id number] Jul, [facility] [address] [id number] [address] [place] [address], [place] [id number] Jul, [facility] [address] [id number] [address] [place] [address], [place] [id number] Jul, [facility] [address] [id number] [address] [place] [address], [place] [id number] 08 Jul, 2012 [facility] [address] [id number] [address] [place] [address], [place] [id number] 06 Jul, 2012 [facility] [address] [id number] [address] [place] [id number] Jul, [facility] [address] [id number] [address] [place] [address], [place] [id number] Jun, [facility] [address] [id number] [address] [place] [id number] Apr, [facility] [address] [id number] [address] [place] [address], [place] [id number] Apr, [facility] [address] [id number] [address] [place] [address], [place] [id number] Apr, [facility] [address] [id number] [address] [place] [address], [place] [id number] Apr, [facility] [address] [id number] [address] [place] [address], [place] [id number] Mar, [facility] [address] [id number] [address] [place] [address], [place] [id number] Mar, [facility] [address] [id number] [address] [place] [address], [place] [id number] Mar, [facility] [address] [id number] [address] [place] [address], [place] [id number] Mar, [facility] [address] [id number] [address] [place] [address], [place] [id number] Mar, [facility] [address] [id number] [address] [place] [address], [place] [id number] Feb, [facility] [address] [id number] [address] [place] [id number] Jan, [facility] [address] [id number] [address] [place] [id number] Jan, [facility] [address] [id number] [address] [place] [id number] Jan, [facility] [address] [id number] [address] [place] [address], [place] [id number] Dec, [facility] [address] [id number] [address] [place] [id number] Nov, [facility] [address] [id number] [address] [place] [id number] Nov, [facility] [address] [id number] [address] [place] [id number] Nov, [facility] [address] [id number] [address] [place] [id number] Nov, [facility] [address] [id number] [address] [place] [id number] Nov, [facility] [address] [id number] [address] [place] [id number] October, [facility] [address] [id number] [address] [place] [id number] October, [facility] [address] [id number] [address] [place] [id number] October, [facility] [address] [id number] [address] [place] [id number] October, [facility] [address] [id number] [address] [place] [id number] October, IMMUNIZATIONS No Known Immunizations SOCIAL HISTORY Never Assessed REASON FOR VISIT PLAN OF CARE VITAL SIGNS MEDICATIONS Unknown Medications RESULTS No Results PROCEDURES Procedure Date Ordered Result Body Site INJ VIT B-12 CYNOCOBLMN TO 1000 MCG Apr 04, 2014 INSTRUCTIONS MEDICATIONS ADMINISTERED No Known Medications MEDICAL [...]
--- OUTSIDE RECORDS SUMMARY | 2020-01-25 07:33 | XMS REPORT ---
Author Author Velma CORDERO Organization [facility] Address [address] [place] [address] Care Team Providers Care Supervising Appraiser Name Role Phone STEPHAN CORDERO Unavailable PROBLEMS Type Condition ICD9-CM Code [id number] Code Onset Dates Condition S tatus SNOMED Code Problem Corns L84 Active 637009823 Problem Primary insomnia F51.01 Active 397 2004 Problem Hyperparathyroidism E21.3 Active 83971646 Problem Hypercholesteremia E78.0 Active 1 0851807 Problem Mood disorder F39 Active 586738 05 Problem Arthritis M19.90 Active 3376445 Problem 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 Active 73747596 Problem Myalgia M79.1 Active 18067663 Problem Chronic kidney disease, stage 4 (severe) N18.4 Active 491232400 Problem Primary osteoarthritis of left knee M17.12 Active 095802413527160 Problem Irritable bowel syndrome with both constipation and diarrh ea K58.2 Active 75549359 Problem Other chronic pain G89.29 Active 8 6173509 Problem BPV (benign positional vertigo), bilateral H81.13 Active 761820291 Problem Hyperparathyroidism, unspecified E21.3 Active 03882168 Problem 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 Active 90998905 Problem Body mass index (BMI) of 40.0-44.9 in adult Z68.41 Active 356635336 Problem Unspecified kidney failure N19 Act chip 32647304 Problem 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 Active 011598515 Problem Unspecified inflammatory spo ndylopathy, sacral and sacrococcygeal region M46.98 Active [id number] ALLERGIES No Information ENCOUNTERS Encounter Location Date Diagnosis [facility] [address] [facility] [id number] [address] [place] [phone] Aug, Hyperparathyroidism, unspeci fied E21.3 [facility] [address] [facility] [id number] [address] [place] [address] Aug, Pain in left knee M25.562 ; Other chronic pain G89.29 ; Unspecified inflammatory spondylopathy, sacral and sacrococcygeal region M46.98 ; Chronic kidney disease, stage 4 (severe) N18.4 and Hyperparathyroidism, unspecified E21.3 [facility] [address] [id number] [address] [place] [phone] Jul, [facility] [address] [id number] [address] [place] [phone] Jul, Arthritis M19.90 [facility] [address] [id number] [address] [place] [address] Jun, Knee pain, left M25.562 [facility] [address] [id number] [address] [place] [address] May, Arthritis M19.90 [facility] [address] [id number] [address] [place] [address] Apr, Well woman exam without gyne cological exam Z00.00 and Screening for breast cancer Z12.39 [place] [address] [id number] [address] [place] [address] Mar, Arthritis M19.90 [facility] [address] [id number] [address] [place] [address] Mar, Arthritis M19.90 [facility] [address] [id number] [address] [place] [address] Mar, [facility] [address] [id number] [address] [place] [address] Mar, Arthritis M19.90 and Encount er for immunization Z23 [facility] [address] [id number] [address] [place] [address] Feb, Arthritis M19.90 [facility] [address] [id number] [address] [place] [phone] Feb, [place] [address] [facility] [id number] [address] [place] [address] Feb, Other specified disorders of bone density and structure, unspecified site M85.80 [facility] [address] [id number] [address] [place] [address] Jan, Arthritis M19.90 [facility] [address] [id number] [address] [place] [address] Dec, Arthritis M19.90 [facility] [address] [facility] [id number] [address] [place] [address] Nov, Inflammatory spondylopathy o f sacral region M46.98 [facility] [address] [facility] [id number] [address] [place] [address] Nov, [facility] [address] [facility] [id number] [address] [place] [address] Nov, Labyrinthitis of left ear H8 3.02 [facility] [address] [facility] [id number] [address] [place] [address] Nov, Arthritis M19.90 [facility] [address] [facility] [id number] [address] [place] [address] Sep, Arthritis M19.90 [facility] [address] [facility] [id number] [address] [place] [address] Sep, Renal insufficiency N28.9 an d Unspecified kidney failure N19 [facility] [address] [facility] [id number] [address] [place] [address] Sep, Renal insufficiency N28.9 an d Unspecified kidney failure N19 [facility] [address] [facility] [id number] [address] [place] [address] Sep, Arthritis M19.90 [facility] [address] [facility] [id number] [address] [place] [address] Aug, Exercise counseling Z71.82 [facility] [address] [facility] [id number] [address] [place] [address] Aug, [facility] [address] [facility] [id number] [address] [place] [phone] 27 Jul, 2018 Labyrinthitis of left ear H8 3.02 [facility] [address] [facility] [id number] [address] [place] [address] 22 Jul, 2018 Labyrinthitis of left ear H8 3.02 [facility] [address] [place] [id number] [address] [place] [address] 19 Jul, 2018 Exercise counseling Z71.82 [place] [address] [facility] [id number] [address] [place] [address] 18 Jul, 2018 [place] [address] [place] [id number] [place] [address] 14 Jul, 2018 Arthritis M19.90 [place] [address] [address] 13 Jul, 2018 Encounter for Medicare annua l wellness exam Z00.00 ; Chronic kidney disease, stage 4 (severe) N18.4 ; Body mass index (BMI) of 40.0-44.9 in adult Z68.41 ; Hyperparathyroidism E21.3 and BMI 40.0-44.9, adult Z68.41 [place] [address] [place] [id number] [address] [place] [address] 13 Jul, 2018 Encounter for Medicare annua l wellness exam Z00.00 ; Chronic kidney disease, stage 4 (severe) N18.4 ; Hyperparathyroidism E21.3 ; Body mass index (BMI) of 40.0-44.9 in adult Z68.41 and Encounter for immunization Z23 [place] [address] [place] [id number] [address] [place] [address] 11 Jul, 2018 Tail bone pain M53.3 [place] [address] [facility] [id number] [address] [place] [address] Jun, Exercise counseling Z71.82 [place] [address] [place] [id number] [address] [place] [address] Jun, Labyrinthitis of left ear H8 3.02 [facility] [address] [id number] [address] [place] [address] Jun, Tail bone pain M53.3 ; Irrit able bowel syndrome with both constipation and diarrhea K58.2 and Dysfunction of left eustachian tube H69.82 [facility] [address] [id number] [address] [place] [address] Jun, Exercise counseling Z71.82 [facility] [address] [id number] [address] [place] [address] Jun, Arthritis M19.90 [place] [address] [id number] [address] [place] [address] Jun, Irritable bowel syndrome wit h both constipation and diarrhea K58.2 ; Tail bone pain M53.3 and Dysfunction of left eustachian tube H69.82 [facility] [address] [id number] [address] [place] [address] Jun, Exercise counseling Z71.82 [place] [address] [id number] [address] [place] [address] Jun, Exercise counseling Z71.82 [facility] [address] [id number] [address] [place] [address] Jun, Labyrinthitis of left ear H8 3.02 [facility] [address] [id number] [address] [place] [address] May, Exercise counseling Z71.82 [facility] [address] [id number] [address] [place] [address] May, Arthritis M19.90 [facility] [address] [id number] [address] [place] [address] May, Exercise counseling Z71.82 [facility] [address] [id number] [address] [place] [address] May, Exercise counseling Z71.82 [facility] [address] [id number] [address] [place] [address] May, Labyrinthitis of left ear H8 3.02 [facility] [address] [id number] [address] [place] [address] May, Exercise counseling Z71.82 [facility] [address] [id number] [address] [place] [address] Apr, Arthritis M19.90 [facility] [address] [id number] [address] [place] [address] Apr, Exercise counseling Z71.82 [place] [address] [id number] [address] [place] [address] Apr, Exercise counseling Z71.82 [place] [address] [id number] [address] [place] [address] Apr, Primary osteoarthritis of le ft knee M17.12 [facility] [address] [id number] [address] [place] [phone] 08 Apr, 2018 Labyrinthitis of left ear H8 3.02 [facility] [address] [id number] [address] [place] [address] Mar, Arthritis M19.90 [facility] [address] [id number] [address] [place] [address] Mar, [facility] [address] [id number] [address] [place] [address] Mar, Chronic kidney disease, stag e 4 (severe) N18.4 [facility] [address] [id number] [address] [place] [address] Mar, Chronic kidney disease, stag e 4 (severe) N18.4 [facility] [address] [id number] [address] [place] [phone] 09 Mar, 2018 Labyrinthitis of left ear H8 3.02 [facility] [address] [place] [id number] [address] [place] [address] Mar, Chronic kidney disease, stag e 4 (severe) N18.4 ; Knee pain, left anterior M25.562 ; 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 and Encounter for immunization Z23 [facility] [address] [facility] [id number] [address] [place] [address] Mar, Arthritis M19.90 [facility] [address] [facility] [id number] [address] [place] [address] Feb, Labyrinthitis of left ear H8 3.02 [facility] [address] [place] [id number] [address] [place] [address] Feb, Arthritis M19.90 [facility] [address] [place] [id number] [address] [place] [address] Jan, Labyrinthitis of left ear H8 3.02 [facility] [address] [place] [id number] [address] [place] [address] Jan, Arthritis M19.90 [facility] [address] [place] [id number] [address] [place] [address] Dec, Labyrinthitis of left ear H8 3.02 [facility] [address] [place] [id number] [address] [place] [address] Nov, Arthritis M19.90 [facility] [address] [place] [id number] [address] [place] [address] Nov, Labyrinthitis of left ear H8 3.02 [facility] [address] [facility] [id number] [address] [place] [address] Nov, BMI 40.0-44.9, adult Z68.41 ; Chronic kidney disease, stage 4 (severe) N18.4 and Acute right-sided thoracic back pain M54.6 [facility] [address] [facility] [id number] [address] [place] [address] October, Labyrinthitis of left ear H8 3.02 and Arthritis M19.90 [facility] [address] [facility] [id number] [address] [place] [address] Sep, BPV (benign positional verti go), bilateral H81.13 ; Dysfunction of left eustachian tube H69.82 and BMI 40.0-44.9, adult Z68.41 [facility] [address] [facility] [id number] [address] [place] [address] Sep, Labyrinthitis of left ear H8 3.02 and Arthritis M19.90 [facility] [address] [facility] [id number] [address] [place] [address] Sep, [facility] [address] [facility] [id number] [address] [place] [address] Sep, [facility] [address] [facility] [id number] [address] [place] [address] Sep, Chronic kidney disease, stag e 4 (severe) N18.4 [facility] [address] [id number] [address] [place] [address] Sep, Chronic kidney disease, stag e 4 (severe) N18.4 [facility] [address] [facility] [id number] [address] [place] [address] Aug, Labyrinthitis of left ear H8 3.02 and Arthritis M19.90 [facility] [address] [facility] [id number] [address] [place] [phone] Aug, [facility] [address] [id number] [address] [place] [address] Jul, [facility] [address] [facility] [id number] [address] [place] [address] Jul, Arthritis M19.90 and Labyrin thitis of left ear H83.02 [facility] [address] [facility] [id number] [address] [place] [address] Jul, [facility] [address] [place] [id number] [address] [place] [address] Jun, [place] [address] [address] Jun, Arthritis M19.90 and Labyrin thitis of left ear H83.02 [place] [address] [place] [id number] [place] [address] Jun, Pre-op evaluation Z01.818 ; BMI 40.0-44.9, adult Z68.41 and Encounter for immunization Z23 [place] [address] [address] May, Arthritis M19.90 and Labyrin thitis of left ear H83.02 [place] [address] [address] Apr, Labyrinthitis of left ear H8 3.02 [place] [address] [address] Apr, Arthritis M19.90 and Labyrin thitis of left ear H83.02 [place] [address] [address] Mar, Arthritis M19.90 and Labyrin thitis of left ear H83.02 [place] [address] [address] Mar, Chronic kidney disease, stag e 4 (severe) N18.4 [place] [address] [place] [id number] [address] [place] [address] Feb, Arthritis M19.90 and Labyrin thitis of left ear H83.02 [place] [address] [place] [id number] [address] [place] [address] Jan, Labyrinthitis of left ear H8 3.02 and 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 [place] [address] [place] [id number] [address] [place] [address] Dec, Arthritis M19.90 [facility] [address] [facility] [id number] [address] [place] [address] Dec, BPV (benign positional verti go), bilateral H81.13 [facility] [address] [facility] [id number] [address] [place] [address] Dec, [facility] [address] [facility] [id number] [address] [place] [address] Dec, [facility] [address] [facility] [id number] [address] [place] [address] Dec, [facility] [address] [facility] [id number] [address] [place] [address] Nov, Arthritis M19.90 and Deficie ncy 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 [facility] [address] [facility] [id number] [address] [place] [address] Nov, Arthritis M19.90 [facility] [address] [facility] [id number] [address] [place] [address] Nov, Hyperparathyroidism E21.3 [facility] [address] [facility] [id number] [address] [place] [address] October, [facility] [address] [facility] [id number] [address] [place] [address] October, Hyperparathyroidism E21.3 [facility] [address] [facility] [id number] [address] [place] [address] October, [facility] [address] [facility] [id number] [address] [place] [address] October, Renal insufficiency N28.9 an d Hyperparathyroidism E21.3 [facility] [address] [facility] [id number] [address] [place] [address] October, [facility] [address] [facility] [id number] [address] [place] [address] October, Renal insufficiency N28.9 an d Hyperparathyroidism E21.3 [facility] [address] [facility] [id number] [address] [place] [address] October, Arthritis M19.90 [facility] [address] [facility] [id number] [address] [place] [address] Sep, [facility] [address] [facility] [id number] [address] [place] [address] Sep, Lumbar neuritis M54.16 ; Tho racic abscess J86.9 and 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 [facility] [address] [facility] [id number] [address] [place] [address] Sep, [facility] [address] [facility] [id number] [address] [place] [address] Aug, Arthritis M19.90 [facility] [address] [place] [id number] [address] [place] [address] Aug, Hyperparathyroidism E21.3 [facility] [address] [facility] [id number] [address] [place] [address] Aug, Hyperparathyroidism E21.3 [facility] [address] [facility] [id number] [address] [place] [address] Aug, Arthritis M19.90 [facility] [address] [facility] [id number] [address] [place] [address] Jul, Mass of throat R22.1 [facility] [address] [facility] [id number] [address] [place] [address] Jul, [facility] [address] [facility] [id number] [address] [place] [address] Jul, Arthritis M19.90 [facility] [address] [facility] [id number] [address] [place] [address] Jun, Arthritis M19.90 [facility] [address] [facility] [id number] [address] [place] [address] Jun, [facility] [address] [facility] [id number] [address] [place] [address] Jun, Renal insufficiency N28.9 an d 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 [facility] [address] [facility] [id number] [address] [place] [address] 05 Jun, 2016 Medicare welcome exam Z00.00 ; Encounter for immunization Z23 ; Arthritis M19.90 ; Medicare annual wellness visit, initial Z00.00 ; Medicare annual wellness visit, subsequent Z00.00 and 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 [facility] [address] [facility] [id number] [address] [place] [address] 29 May, 2016 Renal insufficiency N28.9 an d 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 [facility] [address] [facility] [id number] [address] [place] [address] May, Renal insufficiency N28.9 [facility] [address] [facility] [id number] [address] [place] [address] May, Renal insufficiency N28.9 [facility] [address] [facility] [id number] [address] [place] [address] May, [facility] [address] [facility] [id number] [address] [place] [address] Apr, [facility] [address] [facility] [id number] [address] [place] [address] Apr, [facility] [address] [facility] [id number] [address] [place] [address] 14 Apr, 2016 Mass of throat R22.1 [facility] [address] [facility] [id number] [address] [place] [address] 10 Apr, 2016 [facility] [address] [facility] [id number] [address] [place] [address] 10 Apr, 2016 Mass of throat R22.1 [facility] [address] [facility] [id number] [address] [place] [address] 04 Apr, 2016 Mass of throat R22.1 [facility] [address] [id number] [address] [place] [address] Mar, [facility] [address] [id number] [address] [place] [address] Mar, [facility] [address] [id number] [address] [place] [phone] Mar, [facility] [address] [id number] [address] [place] [address] Mar, Parathyroid abnormality E21. 5 and Encounter for immunization Z23 [facility] [address] [id number] [address] [place] [phone] Mar, [facility] [address] [id number] [address] [place] [address] Mar, [facility] [address] [id number] [address] [place] [address] 21 Feb, 2016 Renal insufficiency N28.9 an d Hyperparathyroidism E21.3 [facility] [address] [id number] [address] [place] [phone] 19 Feb, 2016 [facility] [address] [id number] [address] [place] [address] 15 Feb, 2016 Renal insufficiency N28.9 an d Hyperparathyroidism E21.3 [facility] [address] [id number] [address] [place] [address] 14 Feb, 2016 [facility] [address] [id number] [address] [place] [phone] 12 Feb, 2016 [facility] [address] [id number] [address] [place] [phone] 09 Feb, 2016 [facility] [address] [id number] [address] [place] [phone] Jan, [facility] [address] [facility] [id number] [address] [place] [phone] Jan, Arthritis M19.90 ; Lumbago w ith sciatica, right side M54.41 and Other chronic pain G89.29 [facility] [address] [facility] [id number] [address] [place] [phone] Jan, [facility] [address] [place] [id number] [address] [place] [phone] Dec, Arthritis M19.90 ; Lumbago w ith sciatica, right side M54.41 and Other chronic pain G89.29 [facility] [address] [place] [id number] [address] [place] [phone] 16 Nov, 2015 Deficiency of other specifie d B group vitamins E53.8 ; Primary insomnia F51.01 ; Mood disorder F39 and Lumbago with sciatica, right side M54.41 [facility] [address] [place] [id number] [address] [place] [phone] Nov, Hyperparathyroidism E21.3 [place] [address] [place] [id number] [address] [place] [phone] Nov, Unspecified kidney failure N 19 and Hyperparathyroidism E21.3 [facility] [address] [place] [id number] [address] [place] [phone] October, Hyperparathyroidism E21.3 [place] [address] [place] [id number] [address] [place] [phone] October, [facility] [address] [place] [id number] [address] [place] [phone] October, Hyperparathyroidism E21.3 [facility] [address] [id number] [address] [place] [address] October, Hyperparathyroidism E21.3 [facility] [address] [facility] [id number] [address] [place] [address] Sep, Hyperparathyroidism E21.3 ; Hypercholesterolemia E78.0 and Arthritis M19.90 [facility] [address] [facility] [id number] [address] [place] [address] Aug, [facility] [address] [id number] [address] [place] [address] Aug, Deficiency of other specifie d B group vitamins E53.8 [facility] [address] [facility] [id number] [address] [place] [address] Aug, [facility] [address] [facility] [id number] [address] [place] [address] Jul, Urinary frequency R35.0 [facility] [address] [facility] [id number] [address] [place] [address] Jul, Urinary frequency R35.0 [facility] [address] [facility] [id number] [address] [place] [address] Jul, [facility] [address] [facility] [id number] [address] [place] [address] Jul, [facility] [address] [facility] [id number] [address] [place] [address] Jun, Pain in left knee M25.562 [facility] [address] [facility] [id number] [address] [place] [address] Jun, [facility] [address] [facility] [id number] [address] [place] [address] May, Swelling of left knee joint M25.462 [facility] [address] [facility] [id number] [address] [place] [phone] May, [facility] [address] [facility] [id number] [address] [place] [address] May, [facility] [address] [facility] [id number] [address] [place] [phone] May, [facility] [address] [facility] [id number] [address] [place] [address] Apr, Renal insufficiency N28.9 an d Chronic kidney disease, stage 4 (severe) N18.4 [facility] [address] [facility] [id number] [address] [place] [address] Apr, Unspecified kidney failure N 19 [facility] [address] [id number] [address] [place] [address] Apr, Unspecified kidney failure N 19 [facility] [address] [id number] [address] [place] [address] Apr, [facility] [address] [facility] [id number] [address] [place] [address] Apr, Hyperparathyroidism, unspeci fied 252.00 [facility] [address] [id number] [address] [place] [address] Apr, [facility] [address] [id number] [address] [place] [address] Mar, [facility] [address] [id number] [address] [place] [address] Mar, [facility] [address] [id number] [address] [place] [address] Mar, Hyperparathyroidism, unspeci fied 252.00 [facility] [address] [id number] [address] [place] [address] Feb, [facility] [address] [id number] [address] [place] [address] Feb, Otalgia 388.70 [facility] [address] [facility] [id number] [address] [place] [address] Feb, [facility] [address] [id number] [address] [place] [phone] Feb, [facility] [address] [id number] [address] [place] [address] Jan, [facility] [address] [id number] [address] [place] [address] Jan, Hyperparathyroidism, unspeci fied 252.00 [facility] [address] [facility] [id number] [address] [place] [address] Jan, [facility] [address] [id number] [address] [place] [address] Jan, Other B-complex deficiencies 266.2 and Hyperparathyroidism, unspecified 252.00 [facility] [address] [id number] [address] [place] [address] Jan, [facility] [address] [id number] [address] [place] [address] Jan, [facility] [address] [id number] [address] [place] [id number] Jan, [facility] [address] [id number] [address] [place] [address] Dec, [facility] [address] [id number] [address] [place] [phone] Dec, [facility] [address] [id number] [address] [place] [phone] Dec, [facility] [address] [id number] [address] [place] [phone] Nov, Routine check-up V70.0 and P re-op exam V72.84 [facility] [address] [id number] [address] [place] [phone] Nov, [facility] [address] [id number] [address] [place] [phone] Nov, [facility] [address] [id number] [address] [place] [phone] October, [facility] [address] [id number] [address] [place] [address] October, Other B-complex deficiencies 266.2 [facility] [address] [id number] [address] [place] [phone] October, [facility] [address] [id number] [address] [place] [phone] Sep, [facility] [address] [id number] [address] [place] [id number] 13 Sep, 2014 [facility] [address] [id number] [address] [place] [address], [place] [address] 20 Aug, 2014 [facility] [address] [id number] [address] [place] [address], [place] [address] 20 Aug, 2014 [facility] [address] [id number] [address] [place] [address], [place] [address] 17 Aug, 2014 [facility] [address] [id number] [address] [place] [address], [place] [address] 17 Aug, 2014 [facility] [address] [id number] [address] [place] [address], [place] [address] 11 Aug, 2014 [facility] [address] [id number] [address] [place] [address], [place] [address] 11 Aug, 2014 [facility] [address] [id number] [address] [place] [address], [place] [address] 18 Jul, 2014 [facility] [address] [id number] [address] [place] [address], [place] [address] 18 Jul, 2014 [facility] [address] [id number] [address] [place] [address], [place] [address] 17 Jul, 2014 [facility] [address] [id number] [address] [place] [address], [place] [address] 17 Jul, 2014 [facility] [address] [id number] [address] [place] [address], [place] [address] 12 Jul, 2014 [facility] [address] [id number] [address] [place] [address] 12 Jul, 2014 [facility] [address] [id number] [address] [place] [address], [place] [address] 10 Jul, 2014 [facility] [address] [id number] [address] [place] [address], [place] [address] 10 Jul, 2014 [facility] [address] [id number] [address] [place] [phone] 09 Jul, 2014 [facility] [address] [id number] [address] [place] [address], [place] [address] Jul, [facility] [address] [id number] [address] [place] [address], [place] [address] Jul, [facility] [address] [id number] [address] [place] [address], [place] [address] Jul, [facility] [address] [id number] [address] [place] [address], [place] [address] Jul, [facility] [address] [id number] [address] [place] [address], [place] [address] Jul, [facility] [address] [id number] [address] [place] [address], [place] [address] Jun, [facility] [address] [id number] [address] [place] [address], [place] [address] Jun, [facility] [address] [id number] [address] [place] [address], [place] [address] Jun, [facility] [address] [id number] [address] [place] [address], [place] [address] Jun, [facility] [address] [id number] [address] [place] [phone] Jun, [facility] [address] [id number] [address] [place] [phone] Jun, [facility] [address] [id number] [address] [place] [address] Jun, [facility] [address] [id number] [address] [place] [address], [place] [address] Jun, [facility] [address] [id number] [address] [place] [address], [place] [address] Jun, [facility] [address] [id number] [address] [place] [address] Jun, [facility] [address] [id number] [address] [place] [address] Jun, [facility] [address] [id number] [address] [place] [address], [place] [address] Jun, [facility] [address] [id number] [address] [place] [address], [place] [address] Jun, [facility] [address] [id number] [address] [place] [address], [place] [address] Jun, [facility] [address] [id number] [address] [place] [address], [place] [address] May, [facility] [address] [id number] [address] [place] [address], [place] [address] May, [facility] [address] [id number] [address] [place] [address], [place] [address] May, [facility] [address] [id number] [address] [place] [address], [place] [address] May, [facility] [address] [id number] [address] [place] [address], [place] [address] Apr, [facility] [address] [id number] [address] [place] [address], [place] [address] Apr, [facility] [address] [id number] [address] [place] [address], [place] [address] Apr, [facility] [address] [id number] [address] [place] [address], [place] [address] Apr, [facility] [address] [id number] [address] [place] [address], [place] [address] Apr, [facility] [address] [id number] [address] [place] [address], [place] [address] Apr, [facility] [address] [id number] [address] [place] [address], [place] [address] Mar, [facility] [address] [id number] [address] [place] [address], [place] [address] Mar, [facility] [address] [id number] [address] [place] [address], [place] [address] 22 Mar, 2014 [facility] [address] [id number] [address] [place] [address], [place] [address] 22 Mar, 2014 [facility] [address] [id number] [address] [place] [address], [place] [address] 15 Mar, 2014 [facility] [address] [id number] [address] [place] [address], [place] [address] 15 Mar, 2014 [facility] [address] [id number] [address] [place] [address], [place] [address] 13 Mar, 2014 [facility] [address] [id number] [address] [place] [address], [place] [address] 13 Mar, 2014 [facility] [address] [id number] [address] [place] [address], [place] [address] 07 Mar, 2014 [facility] [address] [id number] [address] [place] [address], [place] [address] 07 Mar, 2013 [facility] [address] [id number] [address] [place] [address], [place] [address] 07 Mar, 2014 [facility] [address] [id number] [address] [place] [address], [place] [address] 07 Mar, 2014 [facility] [address] [id number] [address] [place] [address], [place] [address] 06 Mar, 2014 [facility] [address] [id number] [address] [place] [address], [place] [address] 26 Feb, 2013 [facility] [address] [id number] [address] [place] [address], [place] [address] 26 Feb, 2013 [facility] [address] [id number] [address] [place] [address], [place] [address] 23 Feb, 2013 [facility] [address] [id number] [address] [place] [address], [place] [address] 23 Feb, 2013 [facility] [address] [id number] [address] [place] [address], [place] [address] 19 Feb, 2014 [facility] [address] [id number] [facility] [place] [address] 19 Feb, 2014 [facility] [address] [id number] [address] [place] [address], [place] [address] 13 Feb, 2014 [facility] [address] [id number] [address] [place] [address], [place] [address] Feb, [facility] [address] [id number] [address] [place] [address], [place] [address] 12 Feb, 2014 [facility] [address] [id number] [address] [place] [address], [place] [address] Feb, [facility] [address] [id number] [address] [place] [address], [place] [address] Jan, [facility] [address] [id number] [address] [place] [address], [place] [address] Jan, [facility] [address] [id number] [address] [place] [address], [place] [address] Dec, [facility] [address] [id number] [address] [place] [address], [place] [address] Dec, [facility] [address] [id number] [address] [place] [address], [place] [address] Dec, [facility] [address] [id number] [address] [place] [address], [place] [address] Dec, [facility] [address] [id number] [address] [place] [address], [place] [address] Dec, [facility] [address] [id number] [address] [place] [address], [place] [address] Dec, [facility] [address] [id number] [address] [place] [address], [place] [address] Nov, [facility] [address] [id number] [address] [place] [address], [place] [address] Nov, [facility] [address] [id number] [facility] [place] [address] Nov, [facility] [address] [id number] [address] [place] [address], [place] [address] Nov, [facility] [address] [id number] [address] [place] [address], [place] [address] October, [facility] [address] [id number] [address] [place] [address], [place] [address] October, [facility] [address] [id number] [address] [place] [address], [place] [address] October, [facility] [address] [id number] [address] [place] [address], [place] [address] October, [facility] [address] [id number] [address] [place] [address], [place] [address] October, [facility] [address] [id number] [address] [place] [address], [place] [address] October, [facility] [address] [id number] [address] [place] [address], [place] [address] October, [facility] [address] [id number] [address] [place] [address], [place] [address] October, [facility] [address] [id number] [address] [place] [address], [place] [address] October, [facility] [address] [id number] [address] [place] [address], [place] [address] October, [facility] [address] [id number] [address] [place] [address], [place] [address] October, [facility] [address] [id number] [address] [place] [address], [place] [address] October, [facility] [address] [id number] [address] [place] [address], [place] [address] October, [facility] [address] [id number] [address] [place] [address], [place] [address] October, [facility] [address] [id number] [facility] [place] [address] October, [facility] [address] [id number] [address] [place] [address], [place] [address] October, [facility] [address] [id number] [address] [place] [address], [place] [address] Sep, [facility] [address] [id number] [address] [place] [address], [place] [address] Sep, [facility] [address] [id number] [address] [place] [address], [place] [address] Sep, [facility] [address] [id number] [address] [place] [address], [place] [address] Sep, [facility] [address] [id number] [address] [place] [address], [place] [address] Sep, [facility] [address] [id number] [address] [place] [address], [place] [address] Sep, [facility] [address] [id number] [address] [place] [address], [place] [address] Aug, [facility] [address] [id number] [address] [place] [address], [place] [address] Aug, [facility] [address] [id number] [address] [place] [address], [place] [address] Aug, [facility] [address] [id number] [address] [place] [address], [place] [address] Aug, [facility] [address] [id number] [address] [place] [address], [place] [address] Aug, [facility] [address] [id number] [address] [place] [address], [place] [address] Aug, [facility] [address] [id number] [address] [place] [address], [place] [address] Jul, [facility] [address] [id number] [address] [place] [address] Jul, [facility] [address] [id number] [address] [place] [address], [place] [address] Jul, [facility] [address] [id number] [address] [place] [address], [place] [address] Jul, [facility] [address] [id number] [address] [place] [address], [place] [address] Jun, [facility] [address] [id number] [address] [place] [address], [place] [address] Jun, [facility] [address] [id number] [address] [place] [address], [place] [address] May, [facility] [address] [id number] [address] [place] [address], [place] [address] May, [facility] [address] [id number] [address] [place] [address] May, [facility] [address] [id number] [address] [place] [address], [place] [address] May, [facility] [address] [id number] [address] [place] [address], [place] [address] May, [facility] [address] [id number] [address] [place] [address] Apr, [facility] [address] [id number] [address] [place] [id number] Apr, [facility] [address] [id number] [address] [place] [phone] Apr, [facility] [address] [id number] [address] [place] [id number] Apr, [facility] [address] [id number] [address] [place] [id number] Apr, [facility] [address] [id number] [address] [place] [phone] Apr, [facility] [address] [id number] [address] [place] [address], [place] [id number] 15 Mar, 2013 [facility] [address] [id number] [address] [place] [address], [place] [address] 15 Mar, 2013 [facility] [address] [id number] [address] [place] [address], [place] [address] 14 Mar, 2013 [facility] [address] [id number] [address] [place] [address], [place] [address] 14 Mar, 2013 [facility] [address] [id number] [address] [place] [address], [place] [address] 11 Mar, 2013 [facility] [address] [id number] [address] [place] [address], [place] [address] 11 Mar, 2013 [facility] [address] [id number] [address] [place] [address], [place] [address] 23 Feb, 2013 [facility] [address] [id number] [address] [place] [address], [place] [address] 19 Feb, 2013 [facility] [address] [id number] [address] [place] [address], [place] [address] 04 Feb, 2013 [facility] [address] [id number] [address] [place] [address], [place] [address] 30 Jan, 2013 [facility] [address] [id number] [address] [place] [address], [place] [address] Jan, [facility] [address] [id number] [address] [place] [address], [place] [address] Jan, [facility] [address] [id number] [address] [place] [address], [place] [address] 16 Jan, 2013 [facility] [address] [id number] [address] [place] [address], [place] [address] Jan, [facility] [address] [id number] [address] [place] [address], [place] [address] Jan, [facility] [address] [id number] [address] [place] [address], [place] [address] Dec, [facility] [address] [id number] [address] [place] [address], [place] [address] Dec, [facility] [address] [id number] [address] [place] [address], [place] [address] Dec, [facility] [address] [id number] [address] [place] [address], [place] [address] Dec, [facility] [address] [id number] [address] [place] [address], [place] [address] Dec, [facility] [address] [id number] [address] [place] [address], [place] [address] Dec, [facility] [address] [id number] [address] [place] [address], [place] [address] Nov, [facility] [address] [id number] [address] [place] [address], [place] [address] Nov, [facility] [address] [id number] [address] [place] [address], [place] [address] Nov, [facility] [address] [id number] [address] [place] [address], [place] [address] Nov, [facility] [address] [id number] [address] [place] [address], [place] [phone] Nov, [facility] [address] [id number] [address] [place] [address], [place] [address] Nov, [facility] [address] [id number] [address] [place] [address], [place] [address] October, [facility] [address] [id number] [address] [place] [address], [place] [address] October, [facility] [address] [id number] [address] [place] [address], [place] [address] October, [facility] [address] [id number] [address] [place] [address], [place] [address] October, [facility] [address] [id number] [address] [place] [address], [place] [address] 2012 [facility] [address] [id number] [address] [place] [address], [place] [address] 30 Sep, 2012 [facility] [address] [id number] [address] [place] [address], [place] [address] 23 Sep, 2012 [facility] [address] [id number] [address] [place] [address], [place] [address] Sep, [facility] [address] [id number] [address] [place] [address], [place] [address] 18 Sep, 2012 [facility] [address] [id number] [address] [place] [address], [place] [address] Sep, [facility] [address] [id number] [address] [place] [address], [place] [address] Aug, [facility] [address] [id number] [address] [place] [address], [place] [phone] 07 Aug, 2012 [facility] [address] [id number] [address] [place] [address], [place] [phone] 04 Aug, 2012 [facility] [address] [id number] [address] [place] [address], [place] [id number] Jul, [facility] [address] [id number] [address] [place] [address], [place] [address] 20 Jul, 2012 [facility] [address] [id number] [address] [place] [address], [place] [address] Jul, [facility] [address] [id number] [address] [place] [address], [place] [address] 08 Jul, 2012 [facility] [address] [id number] [address] [place] [address], [place] [address] 06 Jul, 2012 [facility] [address] [id number] [address] [place] [address], [place] [address] 05 Jul, 2012 [facility] [address] [id number] [address] [place] [address], [place] [address] Jun, [facility] [address] [id number] [address] [place] [address], [place] [address] Apr, [facility] [address] [id number] [address] [place] [address], [place] [address] Apr, [facility] [address] [id number] [address] [place] [address], [place] [address] Apr, [facility] [address] [id number] [address] [place] [address], [place] [address] Apr, [facility] [address] [id number] [address] [place] [address], [place] [address] Mar, [facility] [address] [id number] [address] [place] [address], [place] [address] Mar, [facility] [address] [id number] [address] [place] [address], [place] [address] Mar, [facility] [address] [id number] [address] [place] [address], [place] [id number] Mar, [facility] [address] [id number] [address] [place] [address], [place] [address] Mar, [facility] [address] [id number] [address] [place] [phone] Feb, [facility] [address] [id number] [address] [place] [address], [place] [address] Jan, [facility] [address] [id number] [address] [place] [phone] Jan, [facility] [address] [id number] [address] [place] [address], [place] [address] Jan, [facility] [address] [id number] [address] [place] [address], [place] [address] Dec, [facility] [address] [id number] [address] [place] [address], [place] [address] Nov, [facility] [address] [id number] [address] [place] [phone] Nov, [facility] [address] [id number] [address] [place] [phone] Nov, [facility] [address] [id number] [address] [place] [phone] Nov, [facility] [address] [facility] [id number] [address] [place] [phone] Nov, [facility] [address] [facility] [id number] [address] [place] [phone] October, [facility] [address] [facility] [id number] [address] [place] [phone] October, [facility] [address] [facility] [id number] [address] [place] [phone] October, [facility] [address] [facility] [id number] [address] [place] [phone] October, [facility] [address] [facility] [id number] [address] [place] [phone] October, IMMUNIZATIONS No Known Immunizations SOCIAL HISTORY [...]
--- OUTSIDE RECORDS SUMMARY | 2020-01-25 07:33 | XMS REPORT ---
Author Author Velma CORDERO Organization [facility] Address [address] [place] [address] Care Team Providers Care Imagery Intelligence Name Role Phone STEPHAN CORDERO Unavailable PROBLEMS Type Condition ICD9-CM Code [id number] Code Onset Dates Condition S tatus SNOMED Code Problem Corns L84 Active 164349665 Problem Primary insomnia F51.01 Active 397 2004 Problem Hyperparathyroidism E21.3 Active 02864409 Problem Hypercholesteremia E78.0 Active 1 3897302 Problem Mood disorder F39 Active 915276 05 Problem Arthritis M19.90 Active 5248497 Problem 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 Active 92214819 Problem Myalgia M79.1 Active 34291767 Problem Chronic kidney disease, stage 4 (severe) N18.4 Active 409046730 Problem Primary osteoarthritis of left knee M17.12 Active 920952468915582 Problem Irritable bowel syndrome with both constipation and diarrh ea K58.2 Active 77412339 Problem Other chronic pain G89.29 Active 8 3752446 Problem BPV (benign positional vertigo), bilateral H81.13 Active 855525839 Problem Hyperparathyroidism, unspecified E21.3 Active 98056552 Problem 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 Active 23661704 Problem Body mass index (BMI) of 40.0-44.9 in adult Z68.41 Active 728007325 Problem Unspecified kidney failure N19 Act chip 51442450 Problem 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 Active 823638151 Problem Unspecified inflammatory spo ndylopathy, sacral and sacrococcygeal region M46.98 Active 21794007 ALLERGIES No Information ENCOUNTERS Encounter Location Date Diagnosis [facility] [address] [id number] [place] [address] Aug, Hyperparathyroidism, unspecified E21.3 [facility] [address] [id number] [place] [address] Aug, Pain in left knee M25.562 ; Other chroni c pain G89.29 ; Unspecified inflammatory spondylopathy, sacral and sacrococcygeal region M46.98 ; Chronic kidney disease, stage 4 (severe) N18.4 and Hyperparathyroidism, unspecified E21.3 [place] [address] [address] 13 Jul, 2019 [place] [address] [address] Jul, Arthritis M19.90 [place] [address] [address] Jun, Knee pain, left M25.562 [place] [address] [address] May, Arthritis M19.90 [place] [address] [address] Apr, Well woman exam without gynecological ex am Z00.00 and Screening for breast cancer Z12.39 [place] [address] [address] Mar, Arthritis M19.90 [place] [address] [address] Mar, Arthritis M19.90 [place] [address] [address] Mar, [place] [address] [address] Mar, Arthritis M19.90 and Encounter for immun ization Z23 [address] [address] Feb, Arthritis M19.90 [place] [address] [address] Feb, [place] [address] [address] Feb, Other specified disorders of bone densit y and structure, unspecified site M85.80 [facility] [address] [address] Jan, Arthritis M19.90 [facility] [address] [address] Dec, Arthritis M19.90 [facility] [address] [address] Nov, Inflammatory spondylopathy of sacral reg ion M46.98 [facility] [address] [address] Nov, [place] [address] [address] Nov, Labyrinthitis of left ear H83.02 [place] [address] [address] Nov, Arthritis M19.90 [place] [address] [address] Sep, Arthritis M19.90 [facility] [address] [address] Sep, Renal insufficiency N28.9 and Unspecifie d kidney failure N19 [place] [address] [address] Sep, Renal insufficiency N28.9 and Unspecifie d kidney failure N19 [place] [address] [address] Sep, Arthritis M19.90 [facility] [address] [address] Aug, Exercise counseling Z71.82 [place] [address] [address] Aug, [place] [address] [address] Jul, Labyrinthitis of left ear H83.02 [place] [address] [address] 22 Jul, 2018 Labyrinthitis of left ear H83.02 [place] [address] [address] 19 Jul, 2018 Exercise counseling Z71.82 [place] [address] [address] 18 Jul, 2018 [place] [address] [address] 14 Jul, 2018 Arthritis M19.[address] [address] 13 Jul, 2018 Encounter for Medicare annual wellness e xam Z00.00 ; Chronic kidney disease, stage 4 (severe) N18.4 ; Body mass index (BMI) of 40.0-44.9 in adult Z68.41 ; Hyperparathyroidism E21.3 and BMI 40.0-44.9, adult Z68.[address] [address] 13 Jul, 2018 Encounter for Medicare annual wellness e xam Z00.00 ; Chronic kidney disease, stage 4 (severe) N18.4 ; Hyperparathyroidism E21.3 ; Body mass index (BMI) of 40.0-44.9 in adult Z68.41 and Encounter for immunization Z23 [address] [address] Jul, Tail bone pain M53.[address] [address] Jun, Exercise counseling Z71.[address] [address] Jun, Labyrinthitis of left ear H83.[address] [address] Jun, Tail bone pain M53.3 ; Irritable bowel s yndrome with both constipation and diarrhea K58.2 and Dysfunction of left eustachian tube H69.82 [place] [address] [address] Jun, Exercise counseling Z71.82 [place] [address] [address] Jun, Arthritis M19.90 [place] [address] [address] Jun, Irritable bowel syndrome with both const ipation and diarrhea K58.2 ; Tail bone pain M53.3 and Dysfunction of left eustachian tube H69.82 [place] [address] [address] Jun, Exercise counseling Z71.82 [place] [address] [address] Jun, Exercise counseling Z71.82 [place] [address] [address] Jun, Labyrinthitis of left ear H83.02 [place] [address] [address] May, Exercise counseling Z71.82 [place] [address] [address] May, Arthritis M19.90 [place] [address] [address] May, Exercise counseling Z71.82 [place] [address] [address] May, Exercise counseling Z71.82 [place] [address] [address] May, Labyrinthitis of left ear H83.02 [place] [address] [address] May, Exercise counseling Z71.82 [place] [address] [address] Apr, Arthritis M19.90 [place] [address] [address] Apr, Exercise counseling Z71.82 [place] [address] [address] Apr, Exercise counseling Z71.82 [place] [address] [address] Apr, Primary osteoarthritis of left knee M17. 12 [place] [address] [address] 08 Apr, 2018 Labyrinthitis of left ear H83.02 [place] [address] [address] Mar, Arthritis M19.90 [place] [address] [address] Mar, [place] [address] [address] Mar, Chronic kidney disease, stage 4 (severe) N18.4 [place] [address] [address] Mar, Chronic kidney disease, stage 4 (severe) N18.4 [place] [address] [address] Mar, Labyrinthitis of left ear H83.02 [place] [address] [address] Mar, Chronic kidney disease, stage 4 (severe) N18.4 ; Knee pain, left anterior M25.562 ; 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 and Encounter for immunization Z23 [place] [address] [address] Mar, Arthritis M19.90 [place] [address] [address] Feb, Labyrinthitis of left ear H83.02 [place] [address] [address] Feb, Arthritis M19.90 [place] [address] [address] Jan, Labyrinthitis of left ear H83.02 [place] [address] [address] Jan, Arthritis M19.90 [place] [address] [address] Dec, Labyrinthitis of left ear H83.02 [place] [address] [address] Nov, Arthritis M19.90 [place] [address] [address] Nov, Labyrinthitis of left ear H83.02 [place] [address] [address] Nov, BMI 40.0-44.9, adult Z68.41 ; Chronic ki dney disease, stage 4 (severe) N18.4 and Acute right-sided thoracic back pain M54.6 [place] [address] [address] October, Labyrinthitis of left ear H83.02 and Art hritis M19.90 [place] [address] [address] Sep, BPV (benign positional vertigo), bilater al H81.13 ; Dysfunction of left eustachian tube H69.82 and BMI 40.0-44.9, adult Z68.41 [place] [address] [address] Sep, Labyrinthitis of left ear H83.02 and Art hritis M19.90 [place] [address] [address] Sep, [facility] [address] [address] Sep, [facility] [address] [address] Sep, Chronic kidney disease, stage 4 (severe) N18.4 [facility] [address] [address] Sep, Chronic kidney disease, stage 4 (severe) N18.4 [facility] [address] [address] Aug, Labyrinthitis of left ear H83.02 and Art hritis M19.90 [place] [address] [address] Aug, [facility] [address] [address] Jul, [place] [address] [address] Jul, Arthritis M19.90 and Labyrinthitis of le ft ear H83.02 [place] [address] [address] Jul, [facility] [address] [address] Jun, [place] [address] [address] Jun, Arthritis M19.90 and Labyrinthitis of le ft ear H83.02 [facility] [address] [address] Jun, Pre-op evaluation Z01.818 ; BMI 40.0-44. 9, adult Z68.41 and Encounter for immunization Z23 [facility] [address] [address] May, Arthritis M19.90 and Labyrinthitis of le ft ear H83.02 [place] [address] [address] Apr, Labyrinthitis of left ear H83.02 [place] [address] [address] 07 Apr, 2017 Arthritis M19.90 and Labyrinthitis of le ft ear H83.02 [place] [address] [address] Mar, Arthritis M19.90 and Labyrinthitis of le ft ear H83.02 [place] [address] [address] 05 Mar, 2017 Chronic kidney disease, stage 4 (severe) N18.4 [place] [address] [address] 06 Feb, 2017 Arthritis M19.90 and Labyrinthitis of le ft ear H83.02 [place] [address] [address] Jan, Labyrinthitis of left ear H83.02 and Def iciency 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 [place] [address] [address] Dec, Arthritis M19.90 [place] [address] [address] Dec, BPV (benign positional vertigo), bilater al H81.13 [place] [address] [address] Dec, [place] [address] [address] Dec, [place] [address] [address] Dec, [place] [address] [address] Nov, Arthritis M19.90 and 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 [facility] [address] [address] Nov, Arthritis M19.90 [facility] [address] [address] Nov, Hyperparathyroidism E21.3 [facility] [address] [address] October, [facility] [address] [address] October, Hyperparathyroidism E21.3 [facility] [address] [address] October, [facility] [address] [address] October, Renal insufficiency N28.9 and Hyperparat hyroidism E21.3 [facility] [address] [address] October, [facility] [address] [address] October, Renal insufficiency N28.9 and Hyperparat hyroidism E21.3 [facility] [address] [address] October, Arthritis M19.90 [facility] [address] [address] Sep, [facility] [address] [address] Sep, Lumbar neuritis M54.16 ; Thoracic absces s J86.9 and 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 [facility] [address] [address] Sep, [facility] [address] [address] Aug, Arthritis M19.90 [facility] [address] [address] Aug, Hyperparathyroidism E21.3 [facility] [address] [address] Aug, Hyperparathyroidism E21.3 [facility] [address] [address] Aug, Arthritis M19.90 [place] [address] [address] Jul, Mass of throat R22.1 [place] [address] [address] Jul, [place] [address] [address] Jul, Arthritis M19.90 [place] [address] [address] Jun, Arthritis M19.90 [place] [address] [address] Jun, [place] [address] [address] Jun, Renal insufficiency N28.9 and Parathyroi d 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 [place] [address] [address] Jun, Medicare welcome exam Z00.00 ; Encounter for immunization Z23 ; Arthritis M19.90 ; Medicare annual wellness visit, initial Z00.00 ; Medicare annual wellness visit, subsequent Z00.00 and 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 [place] [address] [address] May, Renal insufficiency N28.9 and Parathyroi d 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 [place] [address] [address] May, Renal insufficiency N28.9 [place] [address] [address] May, Renal insufficiency N28.9 [facility] [address] [address] 14 May, 2016 [facility] [address] [address] 16 Apr, 2016 [facility] [address] [address] 16 Apr, 2016 [facility] [address] [address] 14 Apr, 2016 Mass of throat R22.1 [facility] [address] [address] 10 Apr, 2016 [facility] [address] [address] 10 Apr, 2016 Mass of throat R22.1 [facility] [address] [address] 04 Apr, 2016 Mass of throat R22.1 [facility] [address] [address] Mar, [facility] [address] [address] Mar, [facility] [address] [address] Mar, [facility] [address] [address] 24 Mar, 2016 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 for immunization Z23 [facility] [address] [address] 17 Mar, 2016 [facility] [address] [address] 11 Mar, 2016 [facility] [address] [address] 21 Feb, 2016 Renal insufficiency N28.9 and Hyperparat hyroidism E21.3 [facility] [address] [address] 19 Feb, 2016 [place] [address] [address] 15 Feb, 2016 Renal insufficiency N28.9 and Hyperparat hyroidism E21.3 [place] [address] [address] 14 Feb, 2016 [place] [address] [address] Feb, [place] [address] [address] Feb, [place] [address] [address] Jan, [place] [address] [address] Jan, Arthritis M19.90 ; Lumbago with sciatica , right side M54.41 and Other chronic pain G89.[address] [address] Jan, [place] [address] [address] Dec, Arthritis M19.90 ; Lumbago with sciatica , right side M54.41 and Other chronic pain G89.29 [place] [address] [address] Nov, Deficiency of other specified B group vi tamins E53.8 ; Primary insomnia F51.01 ; Mood disorder F39 and Lumbago with sciatica, right side M54.41 [place] [address] [address] Nov, Hyperparathyroidism E21.3 [place] [address] [address] Nov, Unspecified kidney failure N19 and Hyper parathyroidism E21.3 [place] [address] [address] October, Hyperparathyroidism E21.3 [place] [address] [address] October, [facility] [address] [address] October, Hyperparathyroidism E21.3 [facility] [address] [address] October, Hyperparathyroidism E21.3 [facility] [address] [address] Sep, Hyperparathyroidism E21.3 ; Hypercholest erolemia E78.0 and Arthritis M19.90 [facility] [address] [address] Aug, [place] [address] [address] Aug, Deficiency of other specified B group vi tamins E53.8 [place] [address] [address] Aug, [facility] [address] [address] Jul, Urinary frequency R35.0 [place] [address] [address] Jul, Urinary frequency R35.0 [place] [address] [address] Jul, [facility] [address] [address] Jul, [facility] [address] [address] Jun, Pain in left knee M25.562 [place] [address] [address] 08 Jun, 2015 [facility] [address] [address] May, Swelling of left knee joint M25.462 [facility] [address] [address] May, [facility] [address] [address] May, [facility] [address] [address] May, [facility] [address] [address] Apr, Renal insufficiency N28.9 and Chronic ki dney disease, stage 4 (severe) N18.4 [facility] [address] [address] Apr, Unspecified kidney failure N19 [facility] [address] [address] Apr, Unspecified kidney failure N19 [facility] [address] [address] Apr, [facility] [address] [address] Apr, Hyperparathyroidism, unspecified 252.00 [facility] [address] [address] Apr, [facility] [address] [address] Mar, [facility] [address] [address] Mar, [facility] [address] [address] Mar, Hyperparathyroidism, unspecified 252.00 [facility] [address] [address] Feb, [facility] [address] [address] Feb, Otalgia 388.70 [facility] [address] [address] Feb, [facility] [address] [place] [id number] [place] [address] Feb, [facility] [address] [place] [id number] [place] [address] Jan, [facility] [address] [place] [id number] [place] [address] Jan, Hyperparathyroidism, unspecified 252.00 [facility] [address] [address] Jan, [facility] [address] [place] [id number] [place] [address] Jan, Other B-complex deficiencies 266.2 and H yperparathyroidism, unspecified 252.00 [facility] [address] [place] [id number] [place] [address] Jan, [facility] [address] [place] [id number] [place] [address] Jan, [facility] [id number] [place] [address] Jan, [facility] [address] [id number] [place] [address] Dec, [facility] [id number] [place] [address] Dec, [facility] [address] [place] [id number] [place] [address] Dec, [facility] [id number] [place] [address] Nov, Routine check-up V70.0 and Pre-op exam V 72.84 [facility] [id number] [place] [address] Nov, [facility] [id number] [place] [address] Nov, [facility] [id number] [place] [address] October, [facility] [address] [id number] [place] [address] October, Other B-complex deficiencies 266.2 [facility] [address] [id number] [place] [address] October, [facility] [address] [id number] [place] [address] 14 Sep, 2014 [facility] [address] [id number] [place] [address] 13 Sep, 2014 [facility] [address] [id number] [place] [address] 20 Aug, 2014 [facility] [address] [id number] [place] [address] Aug, [facility] [address] [id number] [place] [address] Aug, [facility] [address] [id number] [place] [address] Aug, [facility] [address] [id number] [place] [address] Aug, [facility] [address] [id number] [place] [address] Aug, [facility] [address] [id number] [place] [address] 18 Jul, 2014 [facility] [address] [id number] [place] [address] Jul, [facility] [address] [id number] [place] [address] Jul, [facility] [address] [id number] [place] [address] 17 Jul, 2014 [facility] [address] [id number] [place] [address] 12 Jul, 2014 [facility] [address] [id number] [place] [address] Jul, [facility] [address] [id number] [facility] [place] [address] Jul, 2014 [facility] [address] [id number] [place] [address] Jul, 2014 [facility] [address] [id number] [place] [address] Jul, 2014 [facility] [address] [id number] [place] [address] Jul, 2014 [facility] [address] [id number] [place] [address] Jul, 2014 [facility] [address] [id number] [place] [address] Jul, 2014 [facility] [address] [id number] [place] [address] Jul, [facility] [address] [id number] [place] [address] Jul, [facility] [address] [id number] [place] [address] Jun, [facility] [address] [id number] [place] [address] Jun, [facility] [address] [id number] [place] [address] Jun, [facility] [address] [id number] [place] [address] Jun, [facility] [address] [id number] [place] [address] Jun, [facility] [address] [id number] [place] [address] Jun, [facility] [id number] [place] [address] Jun, [facility] [address] [id number] [place] [address] Jun, [facility] [address] [id number] [place] [address] Jun, [facility] [address] [id number] [place] [address] Jun, [facility] [address] [id number] [place] [address] Jun, [facility] [address] [id number] [place] [address] Jun, [facility] [address] [id number] [place] [address] Jun, [facility] [address] [id number] [place] [address] Jun, [facility] [address] [id number] [place] [address] May, [facility] [address] [id number] [place] [address] May, [facility] [address] [id number] [place] [address] May, [facility] [address] [id number] [place] [address] May, [facility] [address] [id number] [place] [address] Apr, [facility] [address] [id number] [place] [address] Apr, [facility] [address] [id number] [place] [address] Apr, [facility] [address] [id number] [place] [address] Apr, [facility] [address] [id number] [place] [address] Apr, [facility] [address] [id number] [place] [address] Apr, [facility] [place] [facility] [address] [id number] [place] [address] 24 Mar, 2014 [facility] [place] [facility] [address] [id number] [place] [address] 24 Mar, 2014 [facility] [place] [facility] [address] [facility] [id number] [place] [address] Mar, [facility] [place] [facility] [address] [facility] [id number] [place] [address] Mar, [facility] [place] [facility] [address] [id number] [place] [address] 15 Mar, 2014 [facility] [place] [facility] [address] [facility] [id number] [place] [address] 15 Mar, 2014 [facility] [place] [facility] [address] [facility] [id number] [place] [address] Mar, [facility] [place] [facility] [address] [id number] [place] [address] Mar, [facility] [place] [facility] [address] [id number] [place] [address] Mar, 2013 [facility] [place] [facility] [address] [id number] [place] [address] Mar, 2013 [facility] [place] [facility] [address] [id number] [place] [address] 07 Mar, 2013 [facility] [place] [facility] [address] [id number] [place] [address] 07 Mar, 2013 [facility] [place] [facility] [address] [id number] [place] [address] 06 Mar, 2013 [facility] [place] [facility] [address] [id number] [place] [address] 26 Feb, 2013 [facility] [place] [facility] [address] [facility] [id number] [place] [address] 26 Sep, 2013 [facility] [place] [facility] [address] [id number] [place] [address] 23 Feb, 2013 [facility] [place] [facility] [address] [id number] [place] [address] 23 Feb, 2013 [facility] [place] [facility] [address] [id number] [place] [address] 19 Feb, 2013 [facility] [place] [facility] [address] [facility] [id number] [place] [address] 19 Feb, 2013 [facility] [place] [facility] [address] [facility] [id number] [place] [address] 13 Feb, 2014 [facility] [place] [facility] [address] [facility] [id number] [place] [address] 13 Feb, 2014 [facility] [place] [facility] [address] [id number] [place] [address] 12 Feb, 2014 [facility] [place] [facility] [address] [facility] [id number] [place] [address] 12 Feb, 2014 [facility] [place] [facility] [address] [facility] [id number] [place] [address] 15 Jan, 2014 [facility] [place] [facility] [address] [id number] [place] [address] Jan, [facility] [place] [facility] [address] [id number] [place] [address] Dec, [facility] [place] [facility] [address] [id number] [place] [address] Dec, [facility] [place] [facility] [address] [id number] [place] [address] Dec, [facility] [place] [facility] [address] [id number] [place] [address] Dec, [facility] [place] [facility] [address] [id number] [place] [address] Dec, [facility] [place] [facility] [address] [id number] [place] [address] Dec, [facility] [place] [facility] [address] [facility] [id number] [place] [address] 16 Nov, 2013 [facility] [place] [facility] [address] [id number] [place] [address] 16 Nov, 2013 [facility] [place] [facility] [address] [id number] [place] [address] Nov, [facility] [place] [facility] [address] [id number] [place] [address] Nov, [facility] [place] [facility] [address] [id number] [place] [address] October, [facility] [place] [facility] [address] [id number] [place] [address] October, [facility] [place] [facility] [address] [id number] [place] [address] October, [facility] [place] [facility] [address] [id number] [place] [address] October, [facility] [place] [facility] [address] [facility] [id number] [place] [address] October, [facility] [place] [facility] [address] [id number] [place] [address] October, [facility] [place] [facility] [address] [id number] [place] [address] October, [facility] [place] [facility] [address] [id number] [place] [address] October, [facility] [place] [facility] [address] [id number] [place] [address] October, [facility] [place] [facility] [address] [id number] [place] [address] October, [facility] [place] [facility] [address] [id number] [place] [address] October, [facility] [place] [facility] [address] [id number] [place] [address] October, [facility] [place] [facility] [address] [id number] [place] [address] October, [facility] [place] [facility] [address] [id number] [place] [address] October, [facility] [place] [facility] [address] [id number] [place] [address] October, [facility] [place] [facility] [address] [id number] [place] [address] October, [facility] [place] [facility] [address] [id number] [place] [address] Sep, [facility] [place] [facility] [address] [facility] [id number] [facility] [place] [address] Sep, [facility] [place] [facility] [address] [facility] [id number] [place] [address] Sep, [facility] [place] [facility] [address] [id number] [place] [address] Sep, [facility] [place] [facility] [address] [facility] [id number] [place] [address] Sep, [facility] [place] [facility] [address] [facility] [id number] [place] [address] Sep, [facility] [place] [facility] [address] [id number] [place] [address] Aug, [facility] [place] [facility] [address] [id number] [place] [address] Aug, [facility] [place] [facility] [address] [id number] [place] [address] Aug, [facility] [place] [facility] [address] [id number] [place] [address] Aug, [facility] [place] [facility] [address] [id number] [place] [address] Aug, [facility] [place] [facility] [address] [id number] [place] [address] Aug, [facility] [place] [facility] [address] [id number] [place] [address] Jul, [facility] [place] [facility] [address] [facility] [id number] [place] [address] Jul, [facility] [place] [facility] [address] [id number] [place] [address] Jul, [facility] [place] [facility] [address] [id number] [place] [address] Jul, [facility] [place] [facility] [address] [id number] [place] [address] Jun, [facility] [place] [facility] [address] [id number] [place] [address] 13 Jun, 2013 [facility] [place] [facility] [address] [id number] [place] [address] 11 May, 2013 [facility] [place] [facility] [address] [id number] [place] [address] 11 May, 2013 [facility] [place] [facility] [address] [id number] [place] [address] 10 May, 2013 [facility] [place] [facility] [address] [id number] [place] [address] May, [facility] [place] [facility] [address] [id number] [place] [address] May, [facility] [place] [facility] [address] [id number] [place] [address] Apr, [facility] [place] [facility] [address] [id number] [place] [address] Apr, [facility] [place] [facility] [address] [id number] [place] [address] Apr, [facility] [place] [facility] [address] [id number] [place] [address] Apr, [facility] [place] [facility] [address] [id number] [place] [address] Apr, [facility] [place] [facility] [address] [id number] [place] [address] 04 Apr, 2013 [facility] [place] [facility] [address] [id number] [place] [address] 15 Mar, 2013 [facility] [place] [facility] [address] [id number] [place] [address] 15 Mar, 2013 [facility] [place] [facility] [id number] [place] [address] 14 Mar, 2013 [facility] [place] [facility] [address] [id number] [place] [address] 14 Mar, 2013 [facility] [place] [facility] [address] [id number] [place] [address] Mar, [facility] [place] [facility] [address] [facility] [id number] [place] [address] Mar, [facility] [place] [facility] [address] [facility] [id number] [facility] [place] [address] Feb, [facility] [place] [facility] [address] [facility] [id number] [facility] [address] Feb, [facility] [place] [facility] [address] [facility] [id number] [facility] [place] [address] Feb, [facility] [place] [facility] [address] [facility] [id number] [facility] [place] [address] Jan, [facility] [place] [facility] [address] [facility] [id number] [place] [address] Jan, [facility] [place] [facility] [address] [id number] [place] [address] Jan, [facility] [place] [facility] [address] [id number] [place] [address] Jan, [facility] [place] [facility] [address] [facility] [id number] [place] [address] Jan, [facility] [place] [facility] [address] [id number] [place] [address] Jan, [facility] [place] [facility] [address] [facility] [id number] [place] [address] Dec, [facility] [place] [facility] [address] [id number] [place] [address] Dec, [facility] [place] [facility] [address] [facility] [id number] [place] [address] Dec, [facility] [place] [facility] [address] [facility] [id number] [place] [address] Dec, [facility] [place] [facility] [address] [facility] [id number] [place] [address] Dec, [facility] [place] [facility] [address] [id number] [place] [address] Dec, [facility] [place] [facility] [address] [id number] [place] [address] Nov, [facility] [place] [facility] [address] [id number] [place] [address] Nov, [facility] [place] [facility] [address] [id number] [place] [address] Nov, [facility] [place] [facility] [address] [id number] [place] [address] Nov, [facility] [place] [facility] [address] [id number] [place] [address] Nov, [facility] [place] [facility] [address] [id number] [place] [address] Nov, [facility] [place] [facility] [address] [id number] [place] [address] October, [facility] [place] [facility] [address] [id number] [place] [address] October, [facility] [place] [facility] [address] [id number] [place] [address] October, [facility] [place] [facility] [address] [id number] [place] [address] October, [facility] [place] [facility] [address] [id number] [place] [address] October, [facility] [place] [facility] [address] [id number] [place] [address] Sep, [facility] [place] [facility] [address] [id number] [place] [address] Sep, [facility] [place] [facility] [address] [id number] [place] [address] Sep, [facility] [place] [facility] [address] [id number] [place] [address] Sep, [facility] [place] [facility] [address] [id number] [place] [address] Sep, [facility] [place] [facility] [address] [id number] [place] [address] Aug, [facility] [place] [facility] [address] [id number] [place] [address] 07 Aug, 2012 [facility] [place] [facility] [address] [id number] [place] [address] 04 Aug, 2012 [facility] [place] [facility] [address] [id number] [place] [address] Jul, [facility] [place] [facility] [address] [id number] [place] [address] 20 Jul, 2012 [facility] [place] [facility] [address] [id number] [place] [address] Jul, [facility] [place] [facility] [address] [id number] [place] [address] 08 Jul, 2012 [facility] [place] [facility] [address] [id number] [place] [address] 06 Jul, 2012 [facility] [place] [facility] [id number] [place] [address] 05 Jul, 2012 [facility] [place] [facility] [address] [id number] [place] [address] 15 Jun, 2012 [facility] [place] [facility] [id number] [place] [address] 16 Apr, 2012 [facility] [place] [facility] [address] [id number] [place] [address] 16 Apr, 2012 [facility] [place] [facility] [id number] [place] [address] Apr, [facility] [place] [facility] [address] [id number] [place] [address] Apr, [facility] [place] [facility] [address] [id number] [place] [address] Mar, [facility] [place] [facility] [address] [id number] [place] [address] Mar, [facility] [place] [facility] [address] [id number] [place] [address] Mar, [facility] [place] [facility] [address] [id number] [place] [address] Mar, [facility] [address] [id number] [place] [address] Mar, [facility] [address] [id number] [place] [address] Feb, [facility] [address] [id number] [place] [address] Jan, [facility] [id number] [place] [address] Jan, [facility] [address] [id number] [place] [address] Jan, [facility] [address] [id number] [place] [address] Dec, [facility] [address] [id number] [place] [address] Nov, [facility] [id number] [place] [address] Nov, [facility] [address] [id number] [place] [address] Nov, [facility] [id number] [place] [address] Nov, [facility] [address] [id number] [place] [address] Nov, [facility] [id number] [place] [address] October, [facility] [address] [id number] [place] [address] October, [facility] [id number] [place] [address] October, [facility] [address] [id number] [place] [address] October, [facility] [place] [facility] [address] [id number] [place] [address] October, IMMUNIZATIONS No Known Immunizations SOCIAL HISTORY [...]
--- OUTSIDE RECORDS SUMMARY | 2020-01-25 07:33 | XMS REPORT ---
Author Author Velma CORDERO Organization [facility] Address [address] [place] [address] Care Team Providers Care House Painter Helper Name Role Phone STEPHAN CORDERO Unavailable PROBLEMS Type Condition ICD9-CM Code XTO04-KZ Code Onset Dates Condition S tatus SNOMED Code Problem Corns L84 Active 211363312 Problem Primary insomnia F51.01 Active 397 2004 Problem Hyperparathyroidism E21.3 Active 59652820 Problem Hypercholesteremia E78.0 Active 1 6228720 Problem Mood disorder F39 Active 604433 05 Problem Arthritis M19.90 Active 8213849 Problem 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 Active 93998673 Problem Myalgia M79.1 Active 06398606 Problem Chronic kidney disease, stage 4 (severe) N18.4 Active 750312981 Problem Primary osteoarthritis of left knee M17.12 Active [id number] Problem Irritable bowel syndrome with both constipation and diarrh ea K58.2 Active 18947145 Problem Other chronic pain G89.29 Active 8 0664184 Problem BPV (benign positional vertigo), bilateral H81.13 Active 842528605 Problem Hyperparathyroidism, unspecified E21.3 Active 07623665 Problem 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 Active 50517982 Problem Body mass index (BMI) of 40.0-44.9 in adult Z68.41 Active 688496953 Problem Unspecified kidney failure N19 Act chip 37233190 Problem 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 Active 459471049 Problem Unspecified inflammatory spo ndylopathy, sacral and sacrococcygeal region M46.98 Active [id number] ALLERGIES No Information ENCOUNTERS Encounter Location Date Diagnosis [facility] [address] [facility] [id number] [address] [place] [phone] Sep, Hyperparathyroidism, unspeci fied E21.3 [facility] [address] [facility] [id number] [address] [place] [phone] Aug, Hyperparathyroidism, unspeci fied E21.3 [place] [address] [id number] [address] [place] [address] Aug, Pain in left knee M25.562 ; Other chronic pain G89.29 ; Unspecified inflammatory spondylopathy, sacral and sacrococcygeal region M46.98 ; Chronic kidney disease, stage 4 (severe) N18.4 and Hyperparathyroidism, unspecified E21.3 [place] [address] [id number] [address] [place] [phone] Jul, [place] [address] [id number] [address] [place] [address] Jul, Arthritis M19.90 [place] [address] [facility] [id number] [address] [place] [id number] Jun, Knee pain, left M25.562 [place] [address] [id number] [address] [place] [address] May, Arthritis M19.90 [place] [address] [facility] [id number] [address] [place] [phone] Apr, Well woman exam without gyne cological exam Z00.00 and Screening for breast cancer Z12.39 [place] [address] [facility] [id number] [address] [place] [address] Mar, Arthritis M19.90 [place] [address] [id number] [address] [place] [address] Mar, Arthritis M19.90 [place] [address] [id number] [address] [place] [address] Mar, [place] [address] [facility] [id number] [address] [place] [address] Mar, Arthritis M19.90 and Encount er for immunization Z23 [place] [address] [facility] [id number] [address] [place] [address] Feb, Arthritis M19.90 [facility] [address] [id number] [address] [place] [address] Feb, [facility] [address] [id number] [address] [place] [address] Feb, Other specified disorders of bone density and structure, unspecified site M85.80 [facility] [address] [id number] [address] [place] [address] Jan, Arthritis M19.90 [facility] [address] [id number] [address] [place] [address] Dec, Arthritis M19.90 [facility] [address] [id number] [address] [place] [address] Nov, Inflammatory spondylopathy o f sacral region M46.98 [facility] [address] [id number] [address] [place] [phone] Nov, [facility] [address] [facility] [id number] [address] [place] [address] Nov, Labyrinthitis of left ear H8 3.02 [facility] [address] [facility] [id number] [address] [place] [address] Nov, Arthritis M19.90 [facility] [address] [facility] [id number] [address] [place] [phone] 15 Sep, 2018 Arthritis M19.90 [facility] [address] [facility] [id number] [address] [place] [address] Sep, Renal insufficiency N28.9 an d Unspecified kidney failure N19 [facility] [address] [id number] [address] [place] [address] Sep, Renal insufficiency N28.9 an d Unspecified kidney failure N19 [facility] [address] [facility] [id number] [address] [place] [address] Sep, Arthritis M19.90 [facility] [address] [facility] [id number] [address] [place] [phone] 18 Aug, 2018 Exercise counseling Z71.82 [facility] [address] [id number] [address] [place] [phone] 08 Aug, 2018 [facility] [address] [facility] [id number] [address] [place] [phone] 27 Jul, 2018 Labyrinthitis of left ear H8 3.02 [facility] [address] [facility] [id number] [address] [place] [phone] 22 Jul, 2018 Labyrinthitis of left ear H8 3.02 [facility] [address] [id number] [address] [place] [id number] 19 Jul, 2018 Exercise counseling Z71.82 [place] [address] [facility] [id number] [address] [place] [address] 18 Jul, 2018 [place] [address] [facility] [id number] [address] [place] [address] 14 Jul, 2018 Arthritis M19.90 [place] [address] [facility] [id number] [address] [place] [address] 13 Jul, 2018 Encounter for Medicare annua l wellness exam Z00.00 ; Chronic kidney disease, stage 4 (severe) N18.4 ; Body mass index (BMI) of 40.0-44.9 in adult Z68.41 ; Hyperparathyroidism E21.3 and BMI 40.0-44.9, adult Z68.41 [place] [address] [facility] [id number] [address] [place] [address] 13 Jul, 2018 Encounter for Medicare annua l wellness exam Z00.00 ; Chronic kidney disease, stage 4 (severe) N18.4 ; Hyperparathyroidism E21.3 ; Body mass index (BMI) of 40.0-44.9 in adult Z68.41 and Encounter for immunization Z23 [facility] [address] [facility] [id number] [address] [place] [phone] 11 Jul, 2018 Tail bone pain M53.3 [facility] [address] [facility] [id number] [address] [place] [address] Jun, Exercise counseling Z71.82 [facility] [address] [id number] [address] [place] [address] Jun, Labyrinthitis of left ear H8 3.02 [facility] [address] [id number] [address] [place] [address] Jun, Tail bone pain M53.3 ; Irrit able bowel syndrome with both constipation and diarrhea K58.2 and Dysfunction of left eustachian tube H69.82 [facility] [address] [id number] [address] [place] [address] Jun, Exercise counseling Z71.82 [facility] [address] [id number] [address] [place] [address] Jun, Arthritis M19.90 [facility] [address] [id number] [address] [place] [address] Jun, Irritable bowel syndrome wit h both constipation and diarrhea K58.2 ; Tail bone pain M53.3 and Dysfunction of left eustachian tube H69.82 [facility] [address] [id number] [address] [place] [address] Jun, Exercise counseling Z71.82 [facility] [address] [id number] [address] [place] [address] Jun, Exercise counseling Z71.82 [facility] [address] [id number] [address] [place] [address] Jun, Labyrinthitis of left ear H8 3.02 [facility] [address] [id number] [address] [place] [address] May, Exercise counseling Z71.82 [facility] [address] [id number] [address] [place] [address] May, Arthritis M19.90 [facility] [address] [id number] [address] [place] [address] May, Exercise counseling Z71.82 [facility] [address] [id number] [address] [place] [address] May, Exercise counseling Z71.82 [facility] [address] [id number] [address] [place] [address] May, Labyrinthitis of left ear H8 3.02 [facility] [address] [id number] [address] [place] [address] May, Exercise counseling Z71.82 [facility] [address] [id number] [address] [place] [address] Apr, Arthritis M19.90 [facility] [address] [id number] [address] [place] [address] Apr, Exercise counseling Z71.82 [facility] [address] [id number] [address] [place] [address] Apr, Exercise counseling Z71.82 [facility] [address] [id number] [address] [place] [address] Apr, Primary osteoarthritis of le ft knee M17.12 [facility] [address] [id number] [address] [place] [address] 08 Apr, 2018 Labyrinthitis of left ear H8 3.02 [facility] [address] [id number] [address] [place] [phone] 30 Mar, 2018 Arthritis M19.90 [facility] [address] [id number] [address] [place] [address] Mar, [facility] [address] [id number] [address] [place] [phone] Mar, Chronic kidney disease, stag e 4 (severe) N18.4 [facility] [address] [id number] [address] [place] [phone] 15 Mar, 2018 Chronic kidney disease, stag e 4 (severe) N18.4 [facility] [address] [address] Mar, Labyrinthitis of left ear H8 3.02 [place] [address] [address] Mar, Chronic kidney disease, stag e 4 (severe) N18.4 ; Knee pain, left anterior M25.562 ; 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 and Encounter for immunization Z23 [place] [address] [address] Mar, Arthritis M19.90 [place] [address] [address] Feb, Labyrinthitis of left ear H8 3.02 [place] [address] [address] Feb, Arthritis M19.90 [place] [address] [address] Jan, Labyrinthitis of left ear H8 3.02 [place] [address] [address] Jan, Arthritis M19.90 [place] [address] [address] Dec, Labyrinthitis of left ear H8 3.02 [place] [address] [address] Nov, Arthritis M19.90 [place] [address] [place] [id number] [place] [address] Nov, Labyrinthitis of left ear H8 3.02 [place] [address] [place] [id number] [place] [address] Nov, BMI 40.0-44.9, adult Z68.41 ; Chronic kidney disease, stage 4 (severe) N18.4 and Acute right-sided thoracic back pain M54.6 [facility] [address] [id number] [address] [place] [address] October, Labyrinthitis of left ear H8 3.02 and Arthritis M19.90 [facility] [address] [facility] [id number] [address] [place] [address] Sep, BPV (benign positional verti go), bilateral H81.13 ; Dysfunction of left eustachian tube H69.82 and BMI 40.0-44.9, adult Z68.41 [facility] [address] [facility] [id number] [address] [place] [address] Sep, Labyrinthitis of left ear H8 3.02 and Arthritis M19.90 [facility] [address] [facility] [id number] [address] [place] [address] Sep, [place] [address] [place] [id number] [address] [place] [phone] Sep, [facility] [address] [facility] [id number] [address] [place] [address] Sep, Chronic kidney disease, stag e 4 (severe) N18.4 [place] [address] [facility] [id number] [address] [place] [address] Sep, Chronic kidney disease, stag e 4 (severe) N18.4 [place] [address] [facility] [id number] [address] [place] [address] Aug, Labyrinthitis of left ear H8 3.02 and Arthritis M19.90 [facility] [address] [id number] [address] [place] [address] Aug, [facility] [address] [facility] [id number] [address] [place] [address] Jul, [facility] [address] [facility] [id number] [address] [place] [address] Jul, Arthritis M19.90 and Labyrin thitis of left ear H83.02 [place] [address] [facility] [id number] [address] [place] [address] Jul, [place] [address] [place] [id number] [place] [address] Jun, [place] [address] [place] [id number] [address] [place] [phone] Jun, Arthritis M19.90 and Labyrin thitis of left ear H83.02 [place] [address] [address] Jun, Pre-op evaluation Z01.818 ; BMI 40.0-44.9, adult Z68.41 and Encounter for immunization Z23 [place] [address] [place] [id number] [place] [address] May, Arthritis M19.90 and Labyrin thitis of left ear H83.02 [place] [address] [address] Apr, Labyrinthitis of left ear H8 3.02 [place] [address] [address] Apr, Arthritis M19.90 and Labyrin thitis of left ear H83.02 [place] [address] [place] [id number] [place] [address] Mar, Arthritis M19.90 and Labyrin thitis of left ear H83.02 [place] [address] [place] [id number] [address] [place] [address] Mar, Chronic kidney disease, stag e 4 (severe) N18.4 [place] [address] [place] [id number] [address] [place] [address] 06 Feb, 2017 Arthritis M19.90 and Labyrin thitis of left ear H83.02 [place] [address] [place] [id number] [address] [place] [address] Jan, Labyrinthitis of left ear H8 3.02 and 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 [facility] [address] [id number] [address] [place] [address] Dec, Arthritis M19.90 [facility] [address] [id number] [address] [place] [address] Dec, BPV (benign positional verti go), bilateral H81.13 [facility] [address] [id number] [address] [place] [address] Dec, [facility] [address] [id number] [address] [place] [address] Dec, [facility] [address] [id number] [address] [place] [address] Dec, [facility] [address] [facility] [id number] [address] [place] [address] Nov, Arthritis M19.90 and Deficie ncy 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 [facility] [address] [id number] [address] [place] [address] Nov, Arthritis M19.90 [facility] [address] [id number] [address] [place] [phone] Nov, Hyperparathyroidism E21.3 [facility] [address] [facility] [id number] [address] [place] [address] October, [facility] [address] [facility] [id number] [address] [place] [phone] October, Hyperparathyroidism E21.3 [facility] [address] [id number] [address] [place] [address] October, [facility] [address] [facility] [id number] [address] [place] [address] October, Renal insufficiency N28.9 an d Hyperparathyroidism E21.3 [facility] [address] [facility] [id number] [address] [place] [address] October, [facility] [address] [place] [id number] [address] [place] [phone] October, Renal insufficiency N28.9 an d Hyperparathyroidism E21.3 [facility] [address] [place] [id number] [address] [place] [address] October, Arthritis M19.90 [facility] [address] [address] Sep, [facility] [address] [address] Sep, Lumbar neuritis M54.16 ; Tho racic abscess J86.9 and 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 [facility] [address] [place] [id number] [address] [place] [address] Sep, [facility] [address] [address] Aug, Arthritis M19.90 [facility] [address] [place] [id number] [address] [place] [address] Aug, Hyperparathyroidism E21.3 [facility] [address] [address] Aug, Hyperparathyroidism E21.3 [facility] [address] [address] Aug, Arthritis M19.90 [facility] [address] [place] [id number] [address] [place] [address] Jul, Mass of throat R22.1 [facility] [address] [address] Jul, [facility] [address] [place] [id number] [address] [place] [address] Jul, Arthritis M19.90 [facility] [address] [place] [id number] [address] [place] [address] Jun, Arthritis M19.90 [facility] [address] [facility] [id number] [address] [place] [address] Jun, [facility] [address] [facility] [id number] [address] [place] [address] Jun, Renal insufficiency N28.9 an d 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 [facility] [address] [facility] [id number] [address] [place] [address] 05 Jun, 2016 Medicare welcome exam Z00.00 ; Encounter for immunization Z23 ; Arthritis M19.90 ; Medicare annual wellness visit, initial Z00.00 ; Medicare annual wellness visit, subsequent Z00.00 and 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 [facility] [address] [facility] [id number] [address] [place] [address] 29 May, 2016 Renal insufficiency N28.9 an d 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 [facility] [address] [facility] [id number] [address] [place] [address] May, Renal insufficiency N28.9 [facility] [address] [facility] [id number] [address] [place] [phone] May, Renal insufficiency N28.9 [facility] [address] [facility] [id number] [address] [place] [address] 14 May, 2016 [facility] [address] [facility] [id number] [address] [place] [address] Apr, [facility] [address] [facility] [id number] [address] [place] [phone] 16 Apr, 2016 [facility] [address] [facility] [id number] [address] [place] [phone] 14 Apr, 2016 Mass of throat R22.1 [facility] [address] [facility] [id number] [address] [place] [phone] 10 Apr, 2016 [facility] [address] [facility] [id number] [address] [place] [phone] 10 Apr, 2016 Mass of throat R22.1 [facility] [address] [id number] [address] [place] [phone] 04 Apr, 2016 Mass of throat R22.1 [facility] [address] [id number] [address] [place] [phone] Mar, [facility] [address] [facility] [id number] [address] [place] [phone] Mar, [facility] [address] [id number] [address] [place] [phone] Mar, [facility] [address] [facility] [id number] [address] [place] [phone] 24 Mar, 2016 Parathyroid abnormality E21. 5 and Encounter for immunization Z23 [facility] [address] [facility] [id number] [address] [place] [id number] 17 Mar, 2016 [facility] [address] [facility] [id number] [address] [place] [address] Mar, [facility] [address] [facility] [id number] [address] [place] [phone] 21 Feb, 2016 Renal insufficiency N28.9 an d Hyperparathyroidism E21.3 [facility] [address] [id number] [address] [place] [phone] 19 Feb, 2016 [facility] [address] [facility] [id number] [address] [place] [phone] 15 Feb, 2016 Renal insufficiency N28.9 an d Hyperparathyroidism E21.3 [facility] [address] [id number] [address] [place] [phone] 14 Feb, 2016 [facility] [address] [id number] [address] [place] [phone] 12 Feb, 2016 [facility] [address] [facility] [id number] [address] [place] [phone] 09 Feb, 2016 [facility] [address] [facility] [id number] [address] [place] [phone] Jan, [facility] [address] [facility] [id number] [address] [place] [phone] Jan, Arthritis M19.90 ; Lumbago w ith sciatica, right side M54.41 and Other chronic pain G89.29 [facility] [address] [facility] [id number] [address] [place] [phone] Jan, [facility] [address] [facility] [id number] [address] [place] [phone] Dec, Arthritis M19.90 ; Lumbago w ith sciatica, right side M54.41 and Other chronic pain G89.29 [place] [address] [place] [id number] [address] [place] [phone] 16 Nov, 2015 Deficiency of other specifie d B group vitamins E53.8 ; Primary insomnia F51.01 ; Mood disorder F39 and Lumbago with sciatica, right side M54.41 [place] [address] [place] [id number] [address] [place] [phone] Nov, Hyperparathyroidism E21.3 [place] [address] [address] [place] [id number] [address] [place] [phone] Nov, Unspecified kidney failure N 19 and Hyperparathyroidism E21.3 [place] [address] [place] [id number] [address] [place] [address] October, Hyperparathyroidism E21.3 [place] [address] [place] [id number] [address] [place] [address] October, [facility] [address] [place] [id number] [address] [place] [address] October, Hyperparathyroidism E21.3 [place] [address] [place] [id number] [address] [place] [address] October, Hyperparathyroidism E21.3 [facility] [address] [facility] [id number] [address] [place] [address] Sep, Hyperparathyroidism E21.3 ; Hypercholesterolemia E78.0 and Arthritis M19.90 [place] [address] [place] [id number] [address] [place] [address] Aug, [facility] [address] [facility] [id number] [address] [place] [address] Aug, Deficiency of other specifie d B group vitamins E53.8 [facility] [address] [facility] [id number] [address] [place] [address] Aug, [facility] [address] [place] [id number] [place] [address] Jul, Urinary frequency R35.0 [facility] [address] [facility] [id number] [address] [place] [address] Jul, Urinary frequency R35.0 [facility] [address] [facility] [id number] [address] [place] [address] Jul, [facility] [address] [place] [id number] [place] [address] Jul, [facility] [address] [facility] [id number] [address] [place] [address] Jun, Pain in left knee M25.562 [facility] [address] [place] [id number] [address] [place] [address] Jun, [facility] [address] [place] [id number] [address] [place] [address] May, Swelling of left knee joint M25.462 [facility] [address] [facility] [id number] [address] [place] [address] May, [facility] [address] [facility] [id number] [address] [place] [address] May, [facility] [address] [place] [id number] [address] [place] [address] May, [facility] [address] [facility] [id number] [address] [place] [address] Apr, Renal insufficiency N28.9 an d Chronic kidney disease, stage 4 (severe) N18.4 [facility] [address] [facility] [id number] [address] [place] [address] Apr, Unspecified kidney failure N 19 [facility] [address] [facility] [id number] [address] [place] [address] Apr, Unspecified kidney failure N 19 [facility] [address] [facility] [id number] [address] [place] [address] Apr, [facility] [address] [facility] [id number] [address] [place] [address] Apr, Hyperparathyroidism, unspeci fied 252.00 [facility] [address] [facility] [id number] [address] [place] [address] Apr, [facility] [address] [facility] [id number] [address] [place] [address] Mar, [facility] [address] [facility] [id number] [address] [place] [address] Mar, [facility] [address] [facility] [id number] [address] [place] [address] Mar, Hyperparathyroidism, unspeci fied 252.00 [facility] [address] [facility] [id number] [address] [place] [address] Feb, [facility] [address] [facility] [id number] [address] [place] [address] Feb, Otalgia 388.70 [facility] [address] [facility] [id number] [address] [place] [address] Feb, [facility] [address] [facility] [id number] [address] [place] [phone] Feb, [facility] [address] [facility] [id number] [address] [place] [phone] Jan, [facility] [address] [facility] [id number] [address] [place] [address] Jan, Hyperparathyroidism, unspeci fied 252.00 [facility] [address] [id number] [address] [place] [address] Jan, [facility] [address] [id number] [address] [place] [address] Jan, Other B-complex deficiencies 266.2 and Hyperparathyroidism, unspecified 252.00 [facility] [address] [id number] [address] [place] [address] Jan, [facility] [address] [id number] [address] [place] [phone] Jan, [facility] [address] [id number] [address] [place] [address] Jan, [facility] [address] [id number] [address] [place] [address] Dec, [facility] [address] [id number] [address] [place] [phone] Dec, [facility] [address] [id number] [address] [place] [address] Dec, [facility] [address] [id number] [address] [place] [address] Nov, Routine check-up V70.0 and P re-op exam V72.84 [facility] [address] [id number] [address] [place] [phone] Nov, [facility] [address] [id number] [address] [place] [address] Nov, [facility] [address] [id number] [address] [place] [phone] October, [facility] [address] [id number] [address] [place] [phone] October, Other B-complex deficiencies 266.2 [facility] [address] [id number] [address] [place] [phone] October, [facility] [address] [id number] [address] [place] [address], [place] [address] 14 Sep, 2014 [facility] [address] [id number] [address] [place] [address], [place] [address] 13 Sep, 2014 [facility] [address] [id number] [address] [place] [address], [place] [address] 20 Aug, 2014 [facility] [address] [id number] [address] [place] [address], [place] [address] 20 Aug, 2014 [facility] [address] [id number] [address] [place] [address], [place] [address] 17 Aug, 2014 [facility] [address] [id number] [address] [place] [address], [place] [address] 17 Aug, 2014 [facility] [address] [id number] [address] [place] [address], [place] [address] 11 Aug, 2014 [facility] [address] [id number] [address] [place] [address], [place] [address] 11 Aug, 2014 [facility] [address] [id number] [address] [place] [address], [place] [address] 18 Jul, 2014 [facility] [address] [id number] [address] [place] [address], [place] [address] 18 Jul, 2014 [facility] [address] [id number] [address] [place] [address], [place] [address] 17 Jul, 2014 [facility] [address] [id number] [address] [place] [address], [place] [address] 17 Jul, 2014 [facility] [address] [id number] [address] [place] [address], [place] [address] 12 Jul, 2014 [facility] [address] [id number] [address] [place] [address], [place] [address] 12 Jul, 2014 [facility] [address] [id number] [address] [place] [address], [place] [address] 10 Jul, 2014 [facility] [address] [id number] [address] [place] [address], [place] [address] Jul, [facility] [address] [id number] [address] [place] [address], [place] [address] Jul, [facility] [address] [id number] [address] [place] [address], [place] [address] Jul, [facility] [address] [id number] [address] [place] [address], [place] [address] Jul, 2014 [facility] [address] [id number] [address] [place] [address], [place] [address] Jul, 2014 [facility] [address] [id number] [address] [place] [address], [place] [address] Jul, [facility] [address] [id number] [address] [place] [address], [place] [address] Jul, [facility] [address] [id number] [address] [place] [address], [place] [address] Jun, [facility] [address] [id number] [address] [place] [address], [place] [address] Jun, [facility] [address] [id number] [address] [place] [address], [place] [address] Jun, [facility] [address] [id number] [address] [place] [address], [place] [address] Jun, [facility] [address] [id number] [address] [place] [address], [place] [address] Jun, [facility] [address] [id number] [address] [place] [address], [place] [address] Jun, [facility] [address] [id number] [address] [place] [address], [place] [address] Jun, [facility] [address] [id number] [address] [place] [address], [place] [address] Jun, [facility] [address] [id number] [address] [place] [address], [place] [address] Jun, [facility] [address] [id number] [address] [place] [address], [place] [address] Jun, [facility] [address] [id number] [address] [place] [address], [place] [address] Jun, [facility] [address] [id number] [address] [place] [address], [place] [address] Jun, [facility] [address] [id number] [address] [place] [address], [place] [address] Jun, [facility] [address] [id number] [address] [place] [address], [place] [address] Jun, [facility] [address] [id number] [address] [place] [address], [place] [address] May, [facility] [address] [id number] [address] [place] [address], [place] [address] May, [facility] [address] [id number] [address] [place] [address], [place] [address] May, [facility] [address] [id number] [address] [place] [address], [place] [address] May, [facility] [address] [id number] [address] [place] [address], [place] [address] Apr, [facility] [address] [id number] [address] [place] [address], [place] [address] Apr, [facility] [address] [id number] [address] [place] [address], [place] [address] Apr, [facility] [address] [id number] [address] [place] [address], [place] [address] Apr, [facility] [address] [id number] [address] [place] [address], [place] [address] Apr, [facility] [address] [id number] [address] [place] [address], [place] [address] Apr, [facility] [address] [id number] [address] [place] [address], [place] [address] Mar, [facility] [address] [id number] [address] [place] [address], [place] [address] 24 Mar, 2014 [facility] [address] [id number] [address] [place] [address], [place] [address] Mar, [facility] [address] [id number] [address] [place] [address], [place] [address] Mar, [facility] [address] [id number] [address] [place] [address], [place] [address] 15 Mar, 2014 [facility] [address] [id number] [address] [place] [address], [place] [address] 15 Mar, 2014 [facility] [address] [id number] [address] [place] [address], [place] [address] Mar, [facility] [address] [id number] [address] [place] [address], [place] [address] Mar, [facility] [address] [id number] [address] [place] [address], [place] [address] Mar, [facility] [address] [id number] [address] [place] [address], [place] [address] 07 Mar, 2014 [facility] [address] [id number] [address] [place] [address] 07 Mar, 2014 [facility] [address] [id number] [address] [place] [address], [place] [address] 07 Mar, 2014 [facility] [address] [id number] [address] [place] [address] 06 Mar, 2014 [facility] [address] [id number] [address] [place] [address], [place] [address] Feb, [facility] [address] [id number] [address] [place] [address], [place] [address] Feb, [facility] [address] [id number] [address] [place] [address], [place] [address] 23 Feb, 2014 [facility] [address] [id number] [address] [place] [address], [place] [address] 23 Feb, 2014 [facility] [address] [id number] [facility] [place] [address] 19 Feb, 2014 [facility] [address] [id number] [address] [place] [address], [place] [address] 19 Feb, 2014 [facility] [address] [id number] [address] [place] [address], [place] [address] 13 Feb, 2014 [facility] [address] [id number] [address] [place] [address], [place] [address] 13 Feb, 2014 [facility] [address] [id number] [address] [place] [address], [place] [address] 12 Feb, 2014 [facility] [address] [id number] [address] [place] [address], [place] [address] Feb, [facility] [address] [id number] [address] [place] [address], [place] [address] 15 Jan, 2014 [facility] [address] [id number] [address] [place] [address], [place] [address] Jan, [facility] [address] [id number] [address] [place] [address], [place] [address] Dec, [facility] [address] [id number] [address] [place] [address], [place] [address] Dec, [facility] [address] [id number] [address] [place] [address], [place] [address] Dec, [facility] [address] [id number] [address] [place] [address], [place] [address] Dec, [facility] [address] [id number] [address] [place] [address], [place] [address] Dec, [facility] [address] [id number] [address] [place] [address], [place] [address] Dec, [facility] [address] [id number] [address] [place] [address], [place] [address] Nov, [facility] [address] [id number] [address] [place] [address], [place] [address] Nov, [facility] [address] [id number] [facility] [place] [address] Nov, [facility] [address] [id number] [facility] [place] [address] Nov, [facility] [address] [id number] [address] [place] [address], [place] [address] October, [facility] [address] [id number] [address] [place] [address], [place] [address] October, [facility] [address] [id number] [address] [place] [address], [place] [address] October, [facility] [address] [id number] [address] [place] [address], [place] [address] October, [facility] [address] [id number] [address] [place] [address], [place] [address] October, [facility] [address] [id number] [address] [place] [address], [place] [address] October, [facility] [address] [id number] [address] [place] [address], [place] [address] October, [facility] [address] [id number] [address] [place] [address], [place] [address] October, [facility] [address] [id number] [address] [place] [address], [place] [address] October, [facility] [address] [id number] [address] [place] [address], [place] [address] October, [facility] [address] [id number] [address] [place] [address], [place] [address] October, [facility] [address] [id number] [address] [place] [address], [place] [address] October, [facility] [address] [id number] [address] [place] [address], [place] [address] October, [facility] [address] [id number] [facility] [place] [address] October, [facility] [address] [id number] [address] [place] [address], [place] [address] October, [facility] [address] [id number] [address] [place] [address], [place] [address] October, [facility] [address] [id number] [address] [place] [address], [place] [address] Sep, [facility] [address] [id number] [address] [place] [address], [place] [address] Sep, [facility] [address] [id number] [address] [place] [address], [place] [address] Sep, [facility] [address] [id number] [address] [place] [address], [place] [address] Sep, [facility] [address] [id number] [address] [place] [address], [place] [address] Sep, [facility] [address] [id number] [address] [place] [address], [place] [address] Sep, [facility] [address] [id number] [address] [place] [address], [place] [address] Aug, [facility] [address] [id number] [address] [place] [address], [place] [address] Aug, [facility] [address] [id number] [address] [place] [address], [place] [address] Aug, [facility] [address] [id number] [address] [place] [address], [place] [address] Aug, [facility] [address] [id number] [address] [place] [address], [place] [address] Aug, [facility] [address] [id number] [address] [place] [address], [place] [address] Aug, [facility] [address] [id number] [address] [place] [address], [place] [address] 11 Jul, 2013 [facility] [address] [id number] [address] [place] [address], [place] [address] Jul, [facility] [address] [id number] [address] [place] [address], [place] [address] Jul, [facility] [address] [id number] [address] [place] [address], [place] [address] Jul, [facility] [address] [id number] [address] [place] [address], [place] [address] Jun, [facility] [address] [id number] [address] [place] [address], [place] [address] Jun, [facility] [address] [id number] [address] [place] [address], [place] [address] May, [facility] [address] [id number] [address] [place] [address], [place] [address] May, [facility] [address] [id number] [address] [place] [address], [place] [address] May, [facility] [address] [id number] [address] [place] [address], [place] [address] May, [facility] [address] [id number] [address] [place] [address], [place] [address] May, [facility] [address] [id number] [address] [place] [address], [place] [address] Apr, [facility] [address] [id number] [address] [place] [address], [place] [address] Apr, [facility] [address] [id number] [address] [place] [address], [place] [address] Apr, [facility] [address] [id number] [address] [place] [address], [place] [address] Apr, [facility] [address] [id number] [address] [place] [address], [place] [address] Apr, [facility] [address] [id number] [address] [place] [address], [place] [address] 04 Apr, 2013 [facility] [address] [id number] [address] [place] [address], [place] [address] 15 Mar, 2013 [facility] [address] [id number] [address] [place] [address], [place] [address] 15 Mar, 2013 [facility] [address] [id number] [address] [place] [address], [place] [address] 14 Mar, 2013 [facility] [address] [id number] [address] [place] [address], [place] [address] 14 Mar, 2013 [facility] [address] [id number] [address] [place] [address], [place] [address] 11 Mar, 2013 [facility] [address] [id number] [address] [place] [address], [place] [address] Mar, [facility] [address] [id number] [address] [place] [address], [place] [address] 23 Feb, 2013 [facility] [address] [id number] [address] [place] [address], [place] [address] 19 Feb, 2013 [facility] [address] [id number] [address] [place] [address], [place] [address] 04 Feb, 2013 [facility] [address] [id number] [address] [place] [address], [place] [address] 30 Jan, 2013 [facility] [address] [id number] [address] [place] [address], [place] [address] Jan, [facility] [address] [id number] [address] [place] [address], [place] [address] Jan, [facility] [address] [id number] [address] [place] [address], [place] [address] 16 Jan, 2013 [facility] [address] [id number] [address] [place] [address], [place] [address] Jan, [facility] [address] [id number] [address] [place] [address], [place] [address] Jan, [facility] [address] [id number] [address] [place] [address], [place] [address] Dec, [facility] [address] [id number] [address] [place] [address], [place] [address] Dec, [facility] [address] [id number] [address] [place] [address], [place] [address] Dec, [facility] [address] [id number] [address] [place] [address], [place] [address] Dec, [facility] [address] [id number] [address] [place] [address], [place] [address] Dec, [facility] [address] [id number] [address] [place] [address], [place] [address] Dec, [facility] [address] [id number] [address] [place] [address], [place] [id number] Nov, [facility] [address] [id number] [address] [place] [address], [place] [address] Nov, [facility] [address] [id number] [address] [place] [address], [place] [address] Nov, [facility] [address] [id number] [address] [place] [address], [place] [address] Nov, [facility] [address] [id number] [address] [place] [address], [place] [address] Nov, [facility] [address] [id number] [address] [place] [address], [place] [address] Nov, [facility] [address] [id number] [address] [place] [address], [place] [address] October, [facility] [address] [id number] [address] [place] [address], [place] [address] October, [facility] [address] [id number] [address] [place] [address], [place] [address] October, [facility] [address] [id number] [address] [place] [address], [place] [address] October, [facility] [address] [id number] [address] [place] [address], [place] [address] October, [facility] [address] [id number] [address] [place] [address], [place] [address] Sep, [facility] [address] [id number] [address] [place] [address], [place] [address] Sep, [facility] [address] [id number] [address] [place] [address], [place] [address] Sep, [facility] [address] [id number] [address] [place] [address], [place] [address] Sep, [facility] [address] [id number] [address] [place] [address], [place] [address] Sep, [facility] [address] [id number] [address] [place] [address], [place] [address] Aug, [facility] [address] [id number] [address] [place] [address], [place] [address] Aug, [facility] [address] [id number] [address] [place] [address], [place] [address] Aug, [facility] [address] [id number] [address] [place] [address], [place] [address] Jul, [facility] [address] [id number] [address] [place] [address], [place] [address] Jul, [facility] [address] [id number] [address] [place] [address], [place] [address] Jul, [facility] [address] [id number] [address] [place] [address], [place] [address] 08 Jul, 2012 [facility] [address] [id number] [address] [place] [address], [place] [address] 06 Jul, 2012 [facility] [address] [id number] [address] [place] [address] Jul, [facility] [address] [id number] [address] [place] [address], [place] [address] Jun, [facility] [address] [id number] [address] [place] [address] Apr, [facility] [address] [id number] [address] [place] [address], [place] [address] Apr, [facility] [address] [id number] [address] [place] [address], [place] [address] Apr, [facility] [address] [id number] [address] [place] [address], [place] [address] Apr, [facility] [address] [id number] [address] [place] [address], [place] [address] Mar, [facility] [address] [id number] [address] [place] [address], [place] [address] Mar, [facility] [address] [id number] [address] [place] [address], [place] [address] Mar, [facility] [address] [id number] [address] [place] [address], [place] [address] Mar, [facility] [address] [id number] [address] [place] [address], [place] [address] Mar, [facility] [address] [id number] [address] [place] [address], [place] [address] Feb, [facility] [address] [id number] [address] [place] [address] Jan, [facility] [address] [id number] [address] [place] [id number] Jan, [facility] [address] [id number] [address] [place] [address] Jan, [facility] [address] [id number] [address] [place] [address], [place] [address] Dec, [facility] [address] [id number] [address] [place] [address] Nov, [facility] [address] [id number] [address] [place] [id number] Nov, [facility] [address] [id number] [address] [place] [address] Nov, [facility] [address] [id number] [address] [place] [address] Nov, [facility] [address] [id number] [address] [place] [address] Nov, [facility] [address] [id number] [address] [place] [address] October, [facility] [address] [id number] [address] [place] [address] October, [facility] [address] [id number] [address] [place] [id number] October, [facility] [address] [id number] [address] [place] [address] October, [facility] [address] [id number] [address] [place] [phone] October, IMMUNIZATIONS No Known Immunizations SOCIAL HISTORY [...]
[2020-01-25] MEDS ORDERED: morphine PF (DURAMORPH) 10 MG/10 ML AMP ONE (07:34)
[2020-01-25] MEDS ORDERED: BUPIVACAINE 0.25% 30 ML (SENSORCAINE) VIAL ONE (07:34)
--- OUTSIDE RECORDS SUMMARY | 2020-01-25 07:34 | XMS REPORT ---
Author Author Velma CORDERO Organization [facility] Address [address] [place] [address] Care Team Providers Care Sand Slinger Operator Name Role Phone STEPHAN CORDERO Unavailable PROBLEMS Type Condition ICD9-CM Code ACO21-AZ Code Onset Dates Condition S tatus SNOMED Code Problem Corns L84 Active 814173900 Problem Primary insomnia F51.01 Active 397 2004 Problem Hyperparathyroidism E21.3 Active 66859318 Problem Hypercholesteremia E78.0 Active 1 1340291 Problem Mood disorder F39 Active 716207 05 Problem Arthritis M19.90 Active 0565503 Problem 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 Active 66116048 Problem Myalgia M79.1 Active 79050223 Problem Chronic kidney disease, stage 4 (severe) N18.4 Active 898237350 Problem Primary osteoarthritis of left knee M17.12 Active [id number] Problem Irritable bowel syndrome with both constipation and diarrh ea K58.2 Active 37948700 Problem Other chronic pain G89.29 Active 8 1535300 Problem BPV (benign positional vertigo), bilateral H81.13 Active 082632473 Problem Hyperparathyroidism, unspecified E21.3 Active 44391731 Problem 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 Active 02344894 Problem Body mass index (BMI) of 40.0-44.9 in adult Z68.41 Active 928161018 Problem Unspecified kidney failure N19 Act chip 92354999 Problem 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 Active 800121024 Problem Unspecified inflammatory spo ndylopathy, sacral and sacrococcygeal region M46.98 Active [id number] ALLERGIES No Information ENCOUNTERS Encounter Location Date Diagnosis [facility] [address] [facility] [id number] [place] [address] 05 Aug, 2019 Pain in left knee M25.562 ; Other chroni c pain G89.29 ; Unspecified inflammatory spondylopathy, sacral and sacrococcygeal region M46.98 ; Chronic kidney disease, stage 4 (severe) N18.4 and Hyperparathyroidism, unspecified E21.3 [place] [address] [address] Jul, [place] [address] [address] Jul, Arthritis M19.90 [place] [address] [address] Jun, Knee pain, left M25.[address] [address] May, Arthritis M19.[address] [address] Apr, Well woman exam without gynecological ex am Z00.00 and Screening for breast cancer Z12.[address] [address] Mar, Arthritis M19.90 [place] [address] [address] Mar, Arthritis M19.[address] [address] Mar, [address] [address] Mar, Arthritis M19.90 and Encounter for immun ization Z23 [address] [address] Feb, Arthritis M19.90 [place] [address] [address] Feb, [address] [address] Feb, Other specified disorders of bone densit y and structure, unspecified site M85.[address] [address] Jan, Arthritis M19.90 [facility] [address] [address] Dec, Arthritis M19.90 [facility] [address] [address] Nov, Inflammatory spondylopathy of sacral reg ion M46.98 [facility] [address] [address] Nov, [facility] [address] [address] Nov, Labyrinthitis of left ear H83.02 [facility] [address] [address] Nov, Arthritis M19.90 [facility] [address] [address] Sep, Arthritis M19.90 [facility] [address] [address] Sep, Renal insufficiency N28.9 and Unspecifie d kidney failure N19 [facility] [address] [address] Sep, Renal insufficiency N28.9 and Unspecifie d kidney failure N19 [facility] [address] [address] Sep, Arthritis M19.90 [facility] [address] [address] Aug, Exercise counseling Z71.82 [facility] [address] [address] Aug, [facility] [address] [address] Jul, Labyrinthitis of left ear H83.02 [facility] [address] [address] Jul, Labyrinthitis of left ear H83.02 [place] [address] [address] 19 Jul, 2018 Exercise counseling Z71.82 [place] [address] [address] 18 Jul, 2018 [place] [address] [address] 14 Jul, 2018 Arthritis M19.90 [place] [address] [address] 13 Jul, 2018 Encounter for Medicare annual wellness e xam Z00.00 ; Chronic kidney disease, stage 4 (severe) N18.4 ; Body mass index (BMI) of 40.0-44.9 in adult Z68.41 ; Hyperparathyroidism E21.3 and BMI 40.0-44.9, adult Z68.41 [place] [address] [address] 13 Jul, 2018 Encounter for Medicare annual wellness e xam Z00.00 ; Chronic kidney disease, stage 4 (severe) N18.4 ; Hyperparathyroidism E21.3 ; Body mass index (BMI) of 40.0-44.9 in adult Z68.41 and Encounter for immunization Z23 [place] [address] [address] Jul, Tail bone pain M53.3 [place] [address] [address] Jun, Exercise counseling Z71.82 [place] [address] [address] Jun, Labyrinthitis of left ear H83.[address] [address] Jun, Tail bone pain M53.3 ; Irritable bowel s yndrome with both constipation and diarrhea K58.2 and Dysfunction of left eustachian tube H69.82 [place] [address] [address] Jun, Exercise counseling Z71.82 [facility] [address] [address] Jun, Arthritis M19.90 [facility] [address] [address] Jun, Irritable bowel syndrome with both const ipation and diarrhea K58.2 ; Tail bone pain M53.3 and Dysfunction of left eustachian tube H69.82 [facility] [address] [address] Jun, Exercise counseling Z71.82 [place] [address] [address] Jun, Exercise counseling Z71.82 [place] [address] [address] Jun, Labyrinthitis of left ear H83.02 [place] [address] [address] May, Exercise counseling Z71.82 [place] [address] [address] May, Arthritis M19.90 [place] [address] [address] May, Exercise counseling Z71.82 [place] [address] [address] May, Exercise counseling Z71.82 [place] [address] [address] May, Labyrinthitis of left ear H83.02 [place] [address] [address] May, Exercise counseling Z71.82 [place] [address] [address] Apr, Arthritis M19.90 [facility] [address] [address] Apr, Exercise counseling Z71.82 [place] [address] [address] Apr, Exercise counseling Z71.82 [place] [address] [address] Apr, Primary osteoarthritis of left knee M17. 12 [place] [address] [address] Apr, Labyrinthitis of left ear H83.02 [place] [address] [address] Mar, Arthritis M19.90 [place] [address] [address] Mar, [place] [address] [address] Mar, Chronic kidney disease, stage 4 (severe) N18.4 [place] [address] [address] Mar, Chronic kidney disease, stage 4 (severe) N18.4 [place] [address] [address] Mar, Labyrinthitis of left ear H83.02 [place] [address] [address] Mar, Chronic kidney disease, stage 4 (severe) N18.4 ; Knee pain, left anterior M25.562 ; 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 and Encounter for immunization Z23 [place] [address] [address] Mar, Arthritis M19.90 [place] [address] [address] Feb, Labyrinthitis of left ear H83.02 [place] [address] [address] Feb, Arthritis M19.90 [place] [address] [address] Jan, Labyrinthitis of left ear H83.02 [place] [address] [address] Jan, Arthritis M19.90 [place] [address] [address] Dec, Labyrinthitis of left ear H83.02 [place] [address] [address] Nov, Arthritis M19.90 [place] [address] [address] Nov, Labyrinthitis of left ear H83.02 [place] [address] [address] Nov, BMI 40.0-44.9, adult Z68.41 ; Chronic ki dney disease, stage 4 (severe) N18.4 and Acute right-sided thoracic back pain M54.6 [place] [address] [address] October, Labyrinthitis of left ear H83.02 and Art hritis M19.90 [place] [address] [address] Sep, BPV (benign positional vertigo), bilater al H81.13 ; Dysfunction of left eustachian tube H69.82 and BMI 40.0-44.9, adult Z68.41 [place] [address] [address] Sep, Labyrinthitis of left ear H83.02 and Art hritis M19.90 [place] [address] [address] Sep, [place] [address] [address] Sep, [facility] [address] [address] Sep, Chronic kidney disease, stage 4 (severe) N18.4 [facility] [address] [address] Sep, Chronic kidney disease, stage 4 (severe) N18.4 [facility] [address] [address] Aug, Labyrinthitis of left ear H83.02 and Art hritis M19.90 [place] [address] [address] Aug, [place] [address] [address] Jul, [place] [address] [address] Jul, Arthritis M19.90 and Labyrinthitis of le ft ear H83.02 [place] [address] [address] Jul, [place] [address] [address] Jun, [place] [address] [address] Jun, Arthritis M19.90 and Labyrinthitis of le ft ear H83.02 [place] [address] [address] Jun, Pre-op evaluation Z01.818 ; BMI 40.0-44. 9, adult Z68.41 and Encounter for immunization Z23 [place] [address] [address] May, Arthritis M19.90 and Labyrinthitis of le ft ear H83.02 [place] [address] [address] Apr, Labyrinthitis of left ear H83.02 [facility] [address] [address] 07 Apr, 2017 Arthritis M19.90 and Labyrinthitis of le ft ear H83.02 [facility] [address] [address] 10 Mar, 2017 Arthritis M19.90 and Labyrinthitis of le ft ear H83.02 [facility] [address] [address] 05 Mar, 2017 Chronic kidney disease, stage 4 (severe) N18.4 [place] [address] [address] Feb, Arthritis M19.90 and Labyrinthitis of le ft ear H83.02 [place] [address] [address] Jan, Labyrinthitis of left ear H83.02 and Def iciency 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 [place] [address] [address] Dec, Arthritis M19.90 [place] [address] [address] Dec, BPV (benign positional vertigo), bilater al H81.13 [place] [address] [address] Dec, [place] [address] [address] Dec, [facility] [address] [address] Dec, [place] [address] [address] Nov, Arthritis M19.90 and 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 [facility] [address] [address] Nov, Arthritis M19.90 [facility] [address] [address] Nov, Hyperparathyroidism E21.3 [facility] [address] [address] October, [facility] [address] [address] October, Hyperparathyroidism E21.3 [facility] [address] [address] October, [facility] [address] [address] October, Renal insufficiency N28.9 and Hyperparat hyroidism E21.3 [facility] [address] [address] October, [facility] [address] [address] October, Renal insufficiency N28.9 and Hyperparat hyroidism E21.3 [facility] [address] [address] October, Arthritis M19.90 [facility] [address] [address] Sep, [facility] [address] [address] Sep, Lumbar neuritis M54.16 ; Thoracic absces s J86.9 and 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 [facility] [address] [address] Sep, [facility] [address] [address] Aug, Arthritis M19.90 [facility] [address] [address] Aug, Hyperparathyroidism E21.3 [facility] [address] [address] Aug, Hyperparathyroidism E21.3 [place] [address] [address] Aug, Arthritis M19.90 [place] [address] [address] Jul, Mass of throat R22.1 [place] [address] [address] Jul, [place] [address] [address] Jul, Arthritis M19.90 [place] [address] [address] Jun, Arthritis M19.90 [place] [address] [address] Jun, [place] [address] [address] Jun, Renal insufficiency N28.9 and Parathyroi d 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 [place] [address] [address] Jun, Medicare welcome exam Z00.00 ; Encounter for immunization Z23 ; Arthritis M19.90 ; Medicare annual wellness visit, initial Z00.00 ; Medicare annual wellness visit, subsequent Z00.00 and 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 [place] [address] [address] May, Renal insufficiency N28.9 and Parathyroi d 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 [place] [address] [address] May, Renal insufficiency N28.9 [place] [address] [address] May, Renal insufficiency N28.9 [place] [address] [address] May, [place] [address] [address] 16 Apr, 2016 [facility] [address] [address] 16 Apr, 2016 [facility] [address] [address] 14 Apr, 2016 Mass of throat R22.1 [facility] [address] [address] 10 Apr, 2016 [facility] [address] [address] 10 Apr, 2016 Mass of throat R22.1 [facility] [address] [address] Apr, Mass of throat R22.1 [facility] [address] [address] Mar, [facility] [address] [address] Mar, [facility] [address] [address] Mar, [facility] [address] [address] 24 Mar, 2016 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 for immunization Z23 [place] [address] [address] 17 Mar, 2016 [facility] [address] [address] Mar, [facility] [address] [address] 21 Feb, 2016 Renal insufficiency N28.9 and Hyperparat hyroidism E21.3 [facility] [address] [address] 19 Feb, 2016 [facility] [address] [address] 15 Feb, 2016 Renal insufficiency N28.9 and Hyperparat hyroidism E21.3 [place] [address] [address] 14 Feb, 2016 [place] [address] [address] Feb, [place] [address] [address] Feb, [place] [address] [address] Jan, [place] [address] [address] Jan, Arthritis M19.90 ; Lumbago with sciatica , right side M54.41 and Other chronic pain G89.29 [place] [address] [address] Jan, [place] [address] [address] Dec, Arthritis M19.90 ; Lumbago with sciatica , right side M54.41 and Other chronic pain G89.29 [place] [address] [address] Nov, Deficiency of other specified B group vi tamins E53.8 ; Primary insomnia F51.01 ; Mood disorder F39 and Lumbago with sciatica, right side M54.41 [place] [address] [address] Nov, Hyperparathyroidism E21.3 [place] [address] [address] Nov, Unspecified kidney failure N19 and Hyper parathyroidism E21.3 [place] [address] [address] October, Hyperparathyroidism E21.3 [place] [address] [address] October, [place] [address] [address] 10 Oct, 2015 Hyperparathyroidism E21.3 [facility] [address] [address] October, Hyperparathyroidism E21.3 [facility] [address] [address] Sep, Hyperparathyroidism E21.3 ; Hypercholest erolemia E78.0 and Arthritis M19.90 [place] [address] [address] Aug, [facility] [address] [address] Aug, Deficiency of other specified B group vi tamins E53.8 [place] [address] [address] Aug, [place] [address] [address] Jul, Urinary frequency R35.0 [place] [address] [address] Jul, Urinary frequency R35.0 [place] [address] [address] Jul, [place] [address] [address] Jul, [place] [address] [address] Jun, Pain in left knee M25.562 [place] [address] [address] Jun, [place] [address] [address] May, Swelling of left knee joint M25.462 [place] [address] [address] May, [place] [address] [place] [address] May, [facility] [address] [place] [id number] [place] [address] May, [facility] [address] [place] [id number] [place] [address] Apr, Renal insufficiency N28.9 and Chronic ki dney disease, stage 4 (severe) N18.4 [facility] [address] [place] [id number] [place] [address] Apr, Unspecified kidney failure N19 [facility] [address] [address] Apr, Unspecified kidney failure N19 [facility] [address] [address] Apr, [facility] [address] [address] Apr, Hyperparathyroidism, unspecified 252.00 [facility] [address] [place] [id number] [place] [address] Apr, [facility] [address] [address] Mar, [facility] [address] [place] [id number] [place] [address] Mar, [facility] [address] [address] Mar, Hyperparathyroidism, unspecified 252.00 [facility] [address] [place] [id number] [place] [address] Feb, [facility] [address] [address] Feb, Otalgia 388.70 [facility] [address] [id number] [place] [address] Feb, [facility] [address] [place] [id number] [place] [address] Feb, [facility] [address] [id number] [place] [address] Jan, [facility] [address] [place] [id number] [place] [address] Jan, Hyperparathyroidism, unspecified 252.00 [facility] [address] [place] [place] [id number] [place] [address] Jan, [facility] [address] [place] [id number] [place] [address] Jan, Other B-complex deficiencies 266.2 and H yperparathyroidism, unspecified 252.00 [facility] [address] [place] [place] [id number] [place] [address] Jan, [facility] [address] [place] [place] [id number] [place] [address] Jan, [facility] [id number] [place] [address] Jan, [facility] [id number] [place] [address] Dec, [facility] [address] [place] [id number] [place] [address] Dec, [facility] [id number] [place] [address] Dec, [facility] [address] [place] [id number] [place] [address] Nov, Routine check-up V70.0 and Pre-op exam V 72.84 [facility] [address] [id number] [place] [address] Nov, [facility] [address] [id number] [place] [address] Nov, [facility] [id number] [place] [address] October, [facility] [address] [place] [id number] [place] [address] October, Other B-complex deficiencies 266.2 [facility] [address] [id number] [place] [address] 12 Oct, 2014 [facility] [address] [facility] [id number] [place] [address] 14 Sep, 2014 [facility] [address] [id number] [place] [address] 13 Sep, 2014 [facility] [address] [id number] [place] [address] 20 Aug, 2014 [facility] [address] [id number] [place] [address] 20 Aug, 2014 [facility] [address] [id number] [place] [address] 17 Aug, 2014 [facility] [address] [id number] [place] [address] Aug, [facility] [address] [id number] [place] [address] Aug, [facility] [address] [id number] [place] [address] Aug, [facility] [address] [id number] [place] [address] 18 Jul, 2014 [facility] [address] [id number] [place] [address] 18 Jul, 2014 [facility] [address] [id number] [place] [address] 17 Jul, 2014 [facility] [address] [id number] [place] [address] 17 Jul, 2014 [facility] [address] [id number] [place] [address] 12 Jul, 2014 [facility] [address] [id number] [place] [address] 12 Jul, 2014 [facility] [address] [id number] [place] [address] 10 Jul, 2014 [facility] [address] [id number] [place] [address] Jul, [facility] [address] [id number] [place] [address] Jul, [facility] [address] [id number] [place] [address] Jul, [facility] [address] [id number] [place] [address] Jul, [facility] [address] [id number] [place] [address] Jul, [facility] [address] [id number] [place] [address] Jul, [facility] [address] [id number] [place] [address] Jul, [facility] [address] [id number] [place] [address] Jun, [facility] [address] [id number] [place] [address] Jun, [facility] [address] [id number] [place] [address] Jun, [facility] [address] [id number] [place] [address] Jun, [facility] [address] [id number] [place] [address] Jun, [facility] [address] [id number] [place] [address] Jun, [facility] [address] [id number] [place] [address] Jun, [facility] [id number] [place] [address] Jun, [facility] [address] [id number] [place] [address] Jun, [facility] [address] [id number] [place] [address] Jun, [facility] [address] [id number] [place] [address] Jun, [facility] [address] [id number] [place] [address] Jun, [facility] [address] [id number] [place] [address] Jun, [facility] [address] [id number] [place] [address] Jun, [facility] [address] [id number] [place] [address] May, [facility] [address] [facility] [id number] [place] [address] May, [facility] [address] [id number] [place] [address] May, [facility] [address] [facility] [id number] [place] [address] May, [facility] [address] [id number] [place] [address] Apr, [facility] [address] [id number] [place] [address] Apr, [facility] [address] [id number] [place] [address] Apr, [facility] [address] [id number] [place] [address] Apr, [facility] [address] [id number] [place] [address] Apr, [facility] [address] [id number] [place] [address] Apr, [facility] [address] [id number] [place] [address] Mar, [facility] [address] [id number] [place] [address] Mar, [facility] [address] [id number] [place] [address] Mar, 2013 [facility] [address] [facility] [id number] [place] [address] 22 Mar, 2013 [facility] [address] [facility] [id number] [place] [address] 15 Mar, 2013 [facility] [address] [facility] [id number] [place] [address] 15 Mar, 2013 [facility] [address] [facility] [id number] [place] [address] 13 Mar, 2013 [facility] [address] [facility] [id number] [place] [address] 13 Mar, 2013 [facility] [address] [id number] [place] [address] 07 Mar, 2013 [facility] [address] [id number] [place] [address] 07 Mar, 2013 [facility] [address] [id number] [place] [address] 07 Mar, 2013 [facility] [address] [facility] [id number] [place] [address] 07 Mar, 2013 [facility] [address] [id number] [place] [address] 06 Mar, 2013 [facility] [address] [id number] [place] [address] 26 Feb, 2013 [facility] [address] [id number] [place] [address] 26 Sep, 2013 [facility] [address] [facility] [id number] [place] [address] 23 Sep, 2013 [facility] [address] [facility] [id number] [place] [address] 23 Sep, 2013 [facility] [address] [id number] [place] [address] 19 Sep, 2013 [facility] [address] [id number] [place] [address] 19 Sep, 2013 [facility] [address] [id number] [facility] [address] 13 Feb, 2014 [facility] [address] [id number] [facility] [address] 13 Feb, 2014 [facility] [address] [facility] [id number] [place] [address] Feb, [facility] [address] [id number] [place] [address] Feb, [facility] [address] [facility] [id number] [place] [address] Jan, [facility] [address] [facility] [id number] [place] [address] Jan, [facility] [address] [id number] [place] [address] Dec, [facility] [address] [id number] [place] [address] Dec, [facility] [address] [id number] [place] [address] Dec, [facility] [address] [facility] [id number] [place] [address] Dec, [facility] [address] [id number] [place] [address] Dec, [facility] [address] [id number] [place] [address] Dec, [facility] [address] [id number] [place] [address] Nov, [facility] [address] [facility] [id number] [place] [address] Nov, [facility] [address] [id number] [place] [address] Nov, [facility] [address] [id number] [place] [address] Nov, [facility] [address] [id number] [place] [address] October, [facility] [address] [id number] [place] [address] October, [facility] [address] [id number] [place] [address] October, [facility] [address] [id number] [place] [address] October, [facility] [address] [id number] [place] [address] October, [facility] [address] [id number] [place] [address] October, [facility] [address] [id number] [place] [address] October, [facility] [address] [id number] [place] [address] October, [facility] [address] [id number] [place] [address] October, [facility] [address] [id number] [place] [address] October, [facility] [address] [id number] [place] [address] October, [facility] [address] [id number] [place] [address] October, [facility] [address] [id number] [place] [address] October, [facility] [address] [id number] [place] [address] October, [facility] [address] [id number] [place] [address] October, [facility] [address] [id number] [place] [address] October, [facility] [address] [id number] [place] [address] Sep, [facility] [address] [id number] [place] [address] Sep, [facility] [address] [facility] [id number] [facility] [address] Sep, [facility] [address] [facility] [id number] [facility] [address] Sep, [facility] [address] [facility] [id number] [place] [address] Sep, [facility] [address] [facility] [id number] [facility] [address] Sep, [facility] [address] [facility] [id number] [facility] [address] Aug, [facility] [address] [facility] [id number] [place] [address] Aug, [facility] [address] [id number] [place] [address] Aug, [facility] [address] [id number] [place] [address] Aug, [facility] [address] [facility] [id number] [place] [address] Aug, [facility] [address] [id number] [place] [address] Aug, [facility] [address] [id number] [place] [address] Jul, [facility] [address] [id number] [place] [address] Jul, [facility] [address] [facility] [id number] [place] [address] Jul, [facility] [address] [facility] [id number] [place] [address] Jul, [facility] [address] [id number] [place] [address] Jun, [facility] [address] [id number] [place] [address] Jun, [facility] [address] [id number] [place] [address] 11 May, 2013 [facility] [address] [id number] [place] [address] 11 May, 2013 [facility] [address] [id number] [place] [address] 10 May, 2013 [facility] [address] [id number] [place] [address] May, [facility] [address] [id number] [place] [address] May, [facility] [address] [id number] [place] [address] Apr, [facility] [address] [id number] [place] [address] Apr, [facility] [address] [id number] [place] [address] Apr, [facility] [address] [id number] [place] [address] Apr, [facility] [address] [id number] [place] [address] Apr, [facility] [address] [id number] [place] [address] 04 Apr, 2013 [facility] [address] [id number] [place] [address] 15 Mar, 2013 [facility] [address] [id number] [place] [address] 15 Mar, 2013 [facility] [address] [id number] [place] [address] 14 Mar, 2013 [facility] [id number] [place] [address] 14 Mar, 2013 [facility] [address] [id number] [place] [address] 11 Mar, 2013 [facility] [address] [id number] [place] [address] Mar, [facility] [address] [id number] [place] [address] Feb, [facility] [address] [facility] [id number] [place] [address] Feb, [facility] [address] [id number] [place] [address] Feb, [facility] [address] [id number] [place] [address] Jan, [facility] [address] [facility] [id number] [place] [address] Jan, [facility] [address] [id number] [place] [address] Jan, [facility] [address] [id number] [place] [address] Jan, [facility] [address] [id number] [place] [address] Jan, [facility] [address] [id number] [place] [address] Jan, [facility] [address] [id number] [place] [address] Dec, [facility] [address] [id number] [place] [address] Dec, [facility] [address] [id number] [place] [address] Dec, [facility] [address] [id number] [place] [address] Dec, [facility] [address] [facility] [id number] [place] [address] Dec, [facility] [address] [id number] [place] [address] Dec, [facility] [address] [id number] [place] [address] Nov, [facility] [address] [id number] [place] [address] Nov, [facility] [address] [facility] [id number] [place] [address] Nov, [facility] [address] [id number] [place] [address] Nov, [facility] [address] [id number] [place] [address] Nov, [facility] [address] [id number] [place] [address] Nov, [facility] [address] [facility] [id number] [place] [address] October, [facility] [address] [id number] [place] [address] October, [facility] [address] [id number] [place] [address] October, [facility] [address] [id number] [place] [address] October, [facility] [address] [id number] [place] [address] October, [facility] [address] [id number] [place] [address] Sep, [facility] [address] [id number] [place] [address] Sep, [facility] [address] [id number] [place] [address] Sep, [facility] [address] [id number] [place] [address] Sep, [facility] [address] [id number] [place] [address] Sep, [facility] [address] [id number] [place] [address] Aug, [facility] [address] [id number] [place] [address] Aug, [facility] [address] [id number] [place] [address] Aug, [facility] [address] [id number] [place] [address] Jul, [facility] [address] [id number] [place] [address] Jul, [facility] [address] [id number] [place] [address] Jul, [facility] [address] [id number] [place] [address] Jul, [facility] [address] [id number] [place] [address] Jul, [facility] [address] [id number] [place] [address] Jul, [facility] [id number] [place] [address] Jun, [facility] [id number] [place] [address] Apr, [facility] [address] [id number] [place] [address] Apr, [facility] [id number] [place] [address] Apr, [facility] [address] [id number] [place] [address] Apr, [facility] [address] [id number] [place] [address] Mar, [facility] [address] [id number] [place] [address] Mar, [facility] [id number] [place] [address] Mar, [facility] [address] [id number] [place] [address] Mar, [facility] [address] [id number] [place] [address] Mar, [facility] [address] [id number] [place] [address] Feb, [facility] [id number] [place] [address] Jan, [facility] [address] [id number] [place] [address] Jan, [facility] [id number] [place] [address] Jan, [facility] [id number] [place] [address] Dec, [facility] [id number] [place] [address] Nov, [facility] [id number] [place] [address] Nov, [facility] [id number] [place] [address] Nov, [facility] [id number] [place] [address] Nov, [facility] [id number] [place] [address] Nov, [facility] [id number] [place] [address] October, [facility] [id number] [place] [address] October, [facility] [id number] [place] [address] October, [facility] [id number] [place] [address] October, [facility] [id number] [place] [address] October, IMMUNIZATIONS No Known Immunizations SOCIAL HISTORY Never Assessed REASON FOR VISIT PLAN OF CARE VITAL SIGNS Height 66 in 2013-08-31 Weight 266 lbs 2013-08-31 Temperature 97.9 degrees Fahrenheit 2013-08-31 Heart Rate 72 bpm 2013-08-31 Respiratory Rate 16 2013-08-31 Blood pressure systolic 138 mmHg 2013-08-31 Blood pressure diastolic 86 mmHg 2013-08-31 MEDICATIONS No Known Medications RESULTS No Results PROCEDURES Procedure Date Ordered Result Body Site INJ VIT B-12 CYNOCOBLMN TO 1000 MCG August 31, 2013 INSTRUCTIONS MEDICATIONS ADMINISTERED No Known Medications MEDICAL [...]
--- OUTSIDE RECORDS SUMMARY | 2020-01-25 07:34 | XMS REPORT ---
Author Author Velma CORDERO Organization [facility] Address [address] [place] [address] Care Team Providers Care Pharmacist Aide Name Role Phone STEPHAN CORDERO Unavailable PROBLEMS Type Condition ICD9-CM Code PVG34-LT Code Onset Dates Condition S tatus SNOMED Code Problem Corns L84 Active 235833380 Problem Primary insomnia F51.01 Active 397 2004 Problem Hyperparathyroidism E21.3 Active 15063382 Problem Hypercholesteremia E78.0 Active 1 3403869 Problem Mood disorder F39 Active 382484 05 Problem Arthritis M19.90 Active 7487906 Problem 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 Active 82179358 Problem Myalgia M79.1 Active 11087845 Problem Chronic kidney disease, stage 4 (severe) N18.4 Active 248281502 Problem Primary osteoarthritis of left knee M17.12 Active 923752839094510 Problem Irritable bowel syndrome with both constipation and diarrh ea K58.2 Active 20405751 Problem Other chronic pain G89.29 Active 8 0098465 Problem BPV (benign positional vertigo), bilateral H81.13 Active 283620674 Problem Hyperparathyroidism, unspecified E21.3 Active 17397749 Problem 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 Active 02400877 Problem Body mass index (BMI) of 40.0-44.9 in adult Z68.41 Active 516122872 Problem Unspecified kidney failure N19 Act chip 63312659 Problem 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 Active 941566602 Problem Unspecified inflammatory spo ndylopathy, sacral and sacrococcygeal region M46.98 Active 54416962 ALLERGIES No Information ENCOUNTERS Encounter Location Date Diagnosis [facility] [address] [id number] [place] [address] 05 Aug, 2019 Pain in left knee M25.562 ; Other chroni c pain G89.29 ; Unspecified inflammatory spondylopathy, sacral and sacrococcygeal region M46.98 ; Chronic kidney disease, stage 4 (severe) N18.4 and Hyperparathyroidism, unspecified E21.3 [place] [address] [address] Jul, [place] [address] [address] Jul, Arthritis M19.90 [place] [address] [address] Jun, Knee pain, left M25.[address] [address] May, Arthritis M19.[address] [address] Apr, Well woman exam without gynecological ex am Z00.00 and Screening for breast cancer Z12.[address] [address] Mar, Arthritis M19.90 [place] [address] [address] Mar, Arthritis M19.[address] [address] Mar, [address] [address] Mar, Arthritis M19.90 and Encounter for immun ization Z23 [address] [address] Feb, Arthritis M19.90 [place] [address] [address] Feb, [address] [address] Feb, Other specified disorders of bone densit y and structure, unspecified site M85.[address] [address] Jan, Arthritis M19.90 [facility] [address] [address] Dec, Arthritis M19.90 [facility] [address] [address] Nov, Inflammatory spondylopathy of sacral reg ion M46.98 [facility] [address] [address] Nov, [facility] [address] [address] Nov, Labyrinthitis of left ear H83.02 [facility] [address] [address] Nov, Arthritis M19.90 [facility] [address] [address] Sep, Arthritis M19.90 [facility] [address] [address] Sep, Renal insufficiency N28.9 and Unspecifie d kidney failure N19 [facility] [address] [address] Sep, Renal insufficiency N28.9 and Unspecifie d kidney failure N19 [facility] [address] [address] Sep, Arthritis M19.90 [facility] [address] [address] Aug, Exercise counseling Z71.82 [facility] [address] [address] Aug, [facility] [address] [address] Jul, Labyrinthitis of left ear H83.02 [facility] [address] [address] Jul, Labyrinthitis of left ear H83.02 [place] [address] [address] 19 Jul, 2018 Exercise counseling Z71.82 [place] [address] [address] 18 Jul, 2018 [place] [address] [address] 14 Jul, 2018 Arthritis M19.90 [place] [address] [address] 13 Jul, 2018 Encounter for Medicare annual wellness e xam Z00.00 ; Chronic kidney disease, stage 4 (severe) N18.4 ; Body mass index (BMI) of 40.0-44.9 in adult Z68.41 ; Hyperparathyroidism E21.3 and BMI 40.0-44.9, adult Z68.41 [place] [address] [address] 13 Jul, 2018 Encounter for Medicare annual wellness e xam Z00.00 ; Chronic kidney disease, stage 4 (severe) N18.4 ; Hyperparathyroidism E21.3 ; Body mass index (BMI) of 40.0-44.9 in adult Z68.41 and Encounter for immunization Z23 [place] [address] [address] Jul, Tail bone pain M53.3 [place] [address] [address] Jun, Exercise counseling Z71.82 [place] [address] [address] Jun, Labyrinthitis of left ear H83.[address] [address] Jun, Tail bone pain M53.3 ; Irritable bowel s yndrome with both constipation and diarrhea K58.2 and Dysfunction of left eustachian tube H69.82 [place] [address] [address] Jun, Exercise counseling Z71.82 [facility] [address] [address] Jun, Arthritis M19.90 [facility] [address] [address] Jun, Irritable bowel syndrome with both const ipation and diarrhea K58.2 ; Tail bone pain M53.3 and Dysfunction of left eustachian tube H69.82 [facility] [address] [address] Jun, Exercise counseling Z71.82 [place] [address] [address] Jun, Exercise counseling Z71.82 [place] [address] [address] Jun, Labyrinthitis of left ear H83.02 [place] [address] [address] May, Exercise counseling Z71.82 [place] [address] [address] May, Arthritis M19.90 [place] [address] [address] May, Exercise counseling Z71.82 [place] [address] [address] May, Exercise counseling Z71.82 [place] [address] [address] May, Labyrinthitis of left ear H83.02 [place] [address] [address] May, Exercise counseling Z71.82 [place] [address] [address] Apr, Arthritis M19.90 [facility] [address] [address] Apr, Exercise counseling Z71.82 [place] [address] [address] Apr, Exercise counseling Z71.82 [place] [address] [address] Apr, Primary osteoarthritis of left knee M17. 12 [place] [address] [address] Apr, Labyrinthitis of left ear H83.02 [place] [address] [address] Mar, Arthritis M19.90 [place] [address] [address] Mar, [place] [address] [address] Mar, Chronic kidney disease, stage 4 (severe) N18.4 [place] [address] [address] Mar, Chronic kidney disease, stage 4 (severe) N18.4 [place] [address] [address] Mar, Labyrinthitis of left ear H83.02 [place] [address] [address] Mar, Chronic kidney disease, stage 4 (severe) N18.4 ; Knee pain, left anterior M25.562 ; 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 and Encounter for immunization Z23 [place] [address] [address] Mar, Arthritis M19.90 [place] [address] [address] Feb, Labyrinthitis of left ear H83.02 [place] [address] [address] Feb, Arthritis M19.90 [place] [address] [address] Jan, Labyrinthitis of left ear H83.02 [place] [address] [address] Jan, Arthritis M19.90 [place] [address] [address] Dec, Labyrinthitis of left ear H83.02 [place] [address] [address] Nov, Arthritis M19.90 [place] [address] [address] Nov, Labyrinthitis of left ear H83.02 [place] [address] [address] Nov, BMI 40.0-44.9, adult Z68.41 ; Chronic ki dney disease, stage 4 (severe) N18.4 and Acute right-sided thoracic back pain M54.6 [place] [address] [address] October, Labyrinthitis of left ear H83.02 and Art hritis M19.90 [place] [address] [address] Sep, BPV (benign positional vertigo), bilater al H81.13 ; Dysfunction of left eustachian tube H69.82 and BMI 40.0-44.9, adult Z68.41 [place] [address] [address] Sep, Labyrinthitis of left ear H83.02 and Art hritis M19.90 [place] [address] [address] Sep, [place] [address] [address] Sep, [facility] [address] [address] Sep, Chronic kidney disease, stage 4 (severe) N18.4 [facility] [address] [address] Sep, Chronic kidney disease, stage 4 (severe) N18.4 [facility] [address] [address] Aug, Labyrinthitis of left ear H83.02 and Art hritis M19.90 [place] [address] [address] Aug, [place] [address] [address] Jul, [place] [address] [address] Jul, Arthritis M19.90 and Labyrinthitis of le ft ear H83.02 [place] [address] [address] Jul, [place] [address] [address] Jun, [place] [address] [address] Jun, Arthritis M19.90 and Labyrinthitis of le ft ear H83.02 [place] [address] [address] Jun, Pre-op evaluation Z01.818 ; BMI 40.0-44. 9, adult Z68.41 and Encounter for immunization Z23 [place] [address] [address] May, Arthritis M19.90 and Labyrinthitis of le ft ear H83.02 [place] [address] [address] Apr, Labyrinthitis of left ear H83.02 [facility] [address] [address] 07 Apr, 2017 Arthritis M19.90 and Labyrinthitis of le ft ear H83.02 [facility] [address] [address] 10 Mar, 2017 Arthritis M19.90 and Labyrinthitis of le ft ear H83.02 [facility] [address] [address] 05 Mar, 2017 Chronic kidney disease, stage 4 (severe) N18.4 [place] [address] [address] Feb, Arthritis M19.90 and Labyrinthitis of le ft ear H83.02 [place] [address] [address] Jan, Labyrinthitis of left ear H83.02 and Def iciency 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 [place] [address] [address] Dec, Arthritis M19.90 [place] [address] [address] Dec, BPV (benign positional vertigo), bilater al H81.13 [place] [address] [address] Dec, [place] [address] [address] Dec, [facility] [address] [address] Dec, [place] [address] [address] Nov, Arthritis M19.90 and 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 [facility] [address] [address] Nov, Arthritis M19.90 [facility] [address] [address] Nov, Hyperparathyroidism E21.3 [facility] [address] [address] October, [facility] [address] [address] October, Hyperparathyroidism E21.3 [facility] [address] [address] October, [facility] [address] [address] October, Renal insufficiency N28.9 and Hyperparat hyroidism E21.3 [facility] [address] [address] October, [facility] [address] [address] October, Renal insufficiency N28.9 and Hyperparat hyroidism E21.3 [facility] [address] [address] October, Arthritis M19.90 [facility] [address] [address] Sep, [facility] [address] [address] Sep, Lumbar neuritis M54.16 ; Thoracic absces s J86.9 and 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 [facility] [address] [address] Sep, [facility] [address] [address] Aug, Arthritis M19.90 [facility] [address] [address] Aug, Hyperparathyroidism E21.3 [facility] [address] [address] Aug, Hyperparathyroidism E21.3 [place] [address] [address] Aug, Arthritis M19.90 [place] [address] [address] Jul, Mass of throat R22.1 [place] [address] [address] Jul, [place] [address] [address] Jul, Arthritis M19.90 [place] [address] [address] Jun, Arthritis M19.90 [place] [address] [address] Jun, [place] [address] [address] Jun, Renal insufficiency N28.9 and Parathyroi d 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 [place] [address] [address] Jun, Medicare welcome exam Z00.00 ; Encounter for immunization Z23 ; Arthritis M19.90 ; Medicare annual wellness visit, initial Z00.00 ; Medicare annual wellness visit, subsequent Z00.00 and 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 [place] [address] [address] May, Renal insufficiency N28.9 and Parathyroi d 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 [place] [address] [address] May, Renal insufficiency N28.9 [place] [address] [address] May, Renal insufficiency N28.9 [place] [address] [address] May, [place] [address] [address] 16 Apr, 2016 [facility] [address] [address] 16 Apr, 2016 [facility] [address] [address] 14 Apr, 2016 Mass of throat R22.1 [facility] [address] [address] 10 Apr, 2016 [facility] [address] [address] 10 Apr, 2016 Mass of throat R22.1 [facility] [address] [address] Apr, Mass of throat R22.1 [facility] [address] [address] Mar, [facility] [address] [address] Mar, [facility] [address] [address] Mar, [facility] [address] [address] 24 Mar, 2016 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 for immunization Z23 [place] [address] [address] 17 Mar, 2016 [facility] [address] [address] Mar, [facility] [address] [address] 21 Feb, 2016 Renal insufficiency N28.9 and Hyperparat hyroidism E21.3 [facility] [address] [address] 19 Feb, 2016 [facility] [address] [address] 15 Feb, 2016 Renal insufficiency N28.9 and Hyperparat hyroidism E21.3 [place] [address] [address] 14 Feb, 2016 [place] [address] [address] Feb, [place] [address] [address] Feb, [place] [address] [address] Jan, [place] [address] [address] Jan, Arthritis M19.90 ; Lumbago with sciatica , right side M54.41 and Other chronic pain G89.29 [place] [address] [address] Jan, [place] [address] [address] Dec, Arthritis M19.90 ; Lumbago with sciatica , right side M54.41 and Other chronic pain G89.29 [place] [address] [address] Nov, Deficiency of other specified B group vi tamins E53.8 ; Primary insomnia F51.01 ; Mood disorder F39 and Lumbago with sciatica, right side M54.41 [place] [address] [address] Nov, Hyperparathyroidism E21.3 [place] [address] [address] Nov, Unspecified kidney failure N19 and Hyper parathyroidism E21.3 [place] [address] [address] October, Hyperparathyroidism E21.3 [place] [address] [address] October, [place] [address] [address] 10 Oct, 2015 Hyperparathyroidism E21.3 [facility] [address] [address] October, Hyperparathyroidism E21.3 [facility] [address] [address] Sep, Hyperparathyroidism E21.3 ; Hypercholest erolemia E78.0 and Arthritis M19.90 [place] [address] [address] Aug, [facility] [address] [address] Aug, Deficiency of other specified B group vi tamins E53.8 [place] [address] [address] Aug, [place] [address] [address] Jul, Urinary frequency R35.0 [place] [address] [address] Jul, Urinary frequency R35.0 [place] [address] [address] Jul, [place] [address] [address] Jul, [place] [address] [address] Jun, Pain in left knee M25.562 [place] [address] [address] Jun, [place] [address] [address] May, Swelling of left knee joint M25.462 [place] [address] [address] May, [place] [address] [place] [address] May, [facility] [address] [place] [address] [place] [address] May, [facility] [address] [place] [id number] [place] [address] Apr, Renal insufficiency N28.9 and Chronic ki dney disease, stage 4 (severe) N18.4 [facility] [address] [place] [address] [place] [address] Apr, Unspecified kidney failure N19 [facility] [address] [address] Apr, Unspecified kidney failure N19 [facility] [address] [address] Apr, [facility] [address] [address] Apr, Hyperparathyroidism, unspecified 252.00 [facility] [address] [place] [id number] [place] [address] Apr, [facility] [address] [address] Mar, [facility] [address] [place] [id number] [place] [address] Mar, [facility] [address] [address] Mar, Hyperparathyroidism, unspecified 252.00 [facility] [address] [place] [id number] [place] [address] Feb, [facility] [address] [address] Feb, Otalgia 388.70 [facility] [address] [place] [address] [place] [address] Feb, [facility] [address] [place] [id number] [place] [address] Feb, [facility] [address] [place] [address] [place] [address] Jan, [facility] [address] [place] [id number] [place] [address] Jan, Hyperparathyroidism, unspecified 252.00 [facility] [address] [place] [id number] [place] [address] Jan, [facility] [address] [place] [id number] [place] [address] Jan, Other B-complex deficiencies 266.2 and H yperparathyroidism, unspecified 252.00 [facility] [address] [place] [id number] [place] [address] Jan, [facility] [address] [place] [address] [place] [address] Jan, [facility] [address] [place] [address] [place] [address] Jan, [facility] [address] [place] [address] [place] [address] Dec, [facility] [address] [place] [id number] [place] [address] Dec, [facility] [address] [place] [id number] [place] [address] Dec, [facility] [address] [place] [id number] [place] [address] Nov, Routine check-up V70.0 and Pre-op exam V 72.84 [facility] [address] [place] [id number] [place] [address] Nov, [facility] [address] [place] [id number] [place] [address] Nov, [facility] [address] [place] [id number] [place] [address] October, [facility] [address] [place] [id number] [place] [address] October, Other B-complex deficiencies 266.2 [facility] [address] [id number] [place] [address] 12 Oct, 2014 [facility] [address] [facility] [id number] [place] [address] 14 Sep, 2014 [facility] [address] [id number] [place] [address] 13 Sep, 2014 [facility] [address] [id number] [place] [address] 20 Aug, 2014 [facility] [address] [id number] [place] [address] 20 Aug, 2014 [facility] [address] [id number] [place] [address] 17 Aug, 2014 [facility] [address] [id number] [place] [address] Aug, [facility] [address] [id number] [place] [address] Aug, [facility] [address] [id number] [place] [address] Aug, [facility] [address] [id number] [place] [address] 18 Jul, 2014 [facility] [address] [id number] [place] [address] 18 Jul, 2014 [facility] [address] [id number] [place] [address] 17 Jul, 2014 [facility] [address] [id number] [place] [address] 17 Jul, 2014 [facility] [address] [id number] [place] [address] 12 Jul, 2014 [facility] [address] [id number] [place] [address] 12 Jul, 2014 [facility] [address] [id number] [place] [address] 10 Jul, 2014 [facility] [address] [id number] [place] [address] Jul, [facility] [address] [id number] [place] [address] Jul, [facility] [address] [id number] [place] [address] Jul, [facility] [address] [id number] [place] [address] Jul, [facility] [address] [id number] [place] [address] Jul, [facility] [address] [id number] [place] [address] Jul, [facility] [address] [id number] [place] [address] Jul, [facility] [address] [id number] [place] [address] Jun, [facility] [address] [id number] [place] [address] Jun, [facility] [address] [id number] [place] [address] Jun, [facility] [address] [id number] [place] [address] Jun, [facility] [address] [id number] [place] [address] Jun, [facility] [address] [id number] [place] [address] Jun, [facility] [address] [id number] [place] [address] Jun, [facility] [id number] [place] [address] Jun, [facility] [address] [id number] [place] [address] Jun, [facility] [address] [id number] [place] [address] Jun, [facility] [address] [id number] [place] [address] Jun, [facility] [address] [id number] [place] [address] Jun, [facility] [address] [id number] [place] [address] Jun, [facility] [address] [id number] [place] [address] Jun, [facility] [address] [id number] [place] [address] May, [facility] [address] [id number] [place] [address] May, [facility] [address] [id number] [place] [address] May, [facility] [address] [id number] [place] [address] May, [facility] [address] [id number] [place] [address] Apr, [facility] [address] [id number] [place] [address] Apr, [facility] [address] [id number] [place] [address] Apr, [facility] [address] [id number] [place] [address] Apr, [facility] [address] [id number] [place] [address] Apr, [facility] [address] [id number] [place] [address] Apr, [facility] [address] [id number] [place] [address] Mar, [facility] [address] [id number] [place] [address] Mar, [facility] [address] [id number] [place] [address] Mar, 2013 [facility] [address] [facility] [id number] [place] [address] 22 Mar, 2013 [facility] [address] [facility] [id number] [place] [address] 15 Mar, 2013 [facility] [address] [facility] [id number] [place] [address] 15 Mar, 2013 [facility] [address] [facility] [id number] [place] [address] 13 Mar, 2013 [facility] [address] [facility] [id number] [place] [address] 13 Mar, 2013 [facility] [address] [id number] [place] [address] 07 Mar, 2013 [facility] [address] [id number] [place] [address] 07 Mar, 2013 [facility] [address] [id number] [place] [address] 07 Mar, 2013 [facility] [address] [facility] [id number] [place] [address] 07 Mar, 2013 [facility] [address] [id number] [place] [address] 06 Mar, 2013 [facility] [address] [id number] [place] [address] 26 Feb, 2013 [facility] [address] [id number] [place] [address] 26 Sep, 2013 [facility] [address] [facility] [id number] [place] [address] 23 Sep, 2013 [facility] [address] [facility] [id number] [place] [address] 23 Sep, 2013 [facility] [address] [id number] [place] [address] 19 Sep, 2013 [facility] [address] [id number] [place] [address] 19 Sep, 2013 [facility] [address] [id number] [facility] [place] [address] 13 Feb, 2014 [facility] [address] [id number] [facility] [place] [address] 13 Feb, 2014 [facility] [address] [facility] [id number] [place] [address] Feb, [facility] [address] [id number] [place] [address] Feb, [facility] [address] [facility] [id number] [place] [address] Jan, [facility] [address] [facility] [id number] [place] [address] Jan, [facility] [address] [id number] [place] [address] Dec, [facility] [address] [id number] [place] [address] Dec, [facility] [address] [id number] [place] [address] Dec, [facility] [address] [facility] [id number] [place] [address] Dec, [facility] [address] [id number] [place] [address] Dec, [facility] [address] [id number] [place] [address] Dec, [facility] [address] [id number] [place] [address] Nov, [facility] [address] [facility] [id number] [place] [address] Nov, [facility] [address] [id number] [place] [address] Nov, [facility] [address] [id number] [place] [address] Nov, [facility] [address] [id number] [place] [address] October, [facility] [address] [id number] [place] [address] October, [facility] [address] [id number] [place] [address] October, [facility] [address] [id number] [place] [address] October, [facility] [address] [id number] [place] [address] October, [facility] [address] [id number] [place] [address] October, [facility] [address] [id number] [place] [address] October, [facility] [address] [id number] [place] [address] October[facility] [address] [id number] [place] [address] October, [facility] [address] [id number] [place] [address] October, [facility] [address] [id number] [place] [address] October, [facility] [address] [id number] [place] [address] October, [facility] [address] [id number] [place] [address] October, [facility] [address] [id number] [place] [address] October, [facility] [address] [id number] [place] [address] October, [facility] [address] [id number] [place] [address] October, [facility] [address] [id number] [place] [address] Sep, [facility] [address] [id number] [place] [address] Sep, [facility] [address] [facility] [id number] [facility] [place] [address] Sep, [facility] [address] [facility] [id number] [facility] [place] [address] Sep, [facility] [address] [facility] [id number] [place] [address] Sep, [facility] [address] [facility] [id number] [facility] [place] [address] Sep, [facility] [address] [facility] [id number] [facility] [place] [address] Aug, [facility] [address] [facility] [id number] [place] [address] Aug, [facility] [address] [id number] [place] [address] Aug, [facility] [address] [id number] [place] [address] Aug, [facility] [address] [facility] [id number] [place] [address] Aug, [facility] [address] [id number] [place] [address] Aug, [facility] [address] [id number] [place] [address] Jul, [facility] [address] [id number] [place] [address] Jul, [facility] [address] [facility] [id number] [place] [address] Jul, [facility] [address] [facility] [id number] [place] [address] Jul, [facility] [address] [id number] [place] [address] Jun, [facility] [address] [id number] [place] [address] Jun, [facility] [address] [id number] [place] [address] 11 May, 2013 [facility] [address] [id number] [place] [address] 11 May, 2013 [facility] [address] [id number] [place] [address] 10 May, 2013 [facility] [address] [id number] [place] [address] May, [facility] [address] [id number] [place] [address] May, [facility] [address] [id number] [place] [address] Apr, [facility] [address] [id number] [place] [address] Apr, [facility] [address] [id number] [place] [address] Apr, [facility] [address] [id number] [place] [address] Apr, [facility] [address] [id number] [place] [address] Apr, [facility] [address] [id number] [place] [address] 04 Apr, 2013 [facility] [address] [id number] [place] [address] 15 Mar, 2013 [facility] [address] [id number] [place] [address] 15 Mar, 2013 [facility] [address] [id number] [place] [address] 14 Mar, 2013 [facility] [id number] [place] [address] 14 Mar, 2013 [facility] [address] [id number] [place] [address] 11 Mar, 2013 [facility] [address] [id number] [place] [address] Mar, [facility] [address] [id number] [place] [address] Feb, [facility] [address] [facility] [id number] [place] [address] Feb, [facility] [address] [id number] [place] [address] Feb, [facility] [address] [id number] [place] [address] Jan, [facility] [address] [facility] [id number] [place] [address] Jan, [facility] [address] [id number] [place] [address] Jan, [facility] [address] [id number] [place] [address] Jan, [facility] [address] [id number] [place] [address] Jan, [facility] [address] [id number] [place] [address] Jan, [facility] [address] [id number] [place] [address] Dec, [facility] [address] [id number] [place] [address] Dec, [facility] [address] [id number] [place] [address] Dec, [facility] [address] [id number] [place] [address] Dec, [facility] [address] [facility] [id number] [place] [address] Dec, [facility] [address] [id number] [place] [address] Dec, [facility] [address] [id number] [place] [address] Nov, [facility] [address] [id number] [place] [address] Nov, [facility] [address] [facility] [id number] [place] [address] Nov, [facility] [address] [id number] [place] [address] Nov, [facility] [address] [id number] [place] [address] Nov, [facility] [address] [id number] [place] [address] Nov, [facility] [address] [facility] [id number] [place] [address] October, [facility] [address] [id number] [place] [address] October, [facility] [address] [id number] [place] [address] October, [facility] [address] [id number] [place] [address] October, [facility] [address] [id number] [place] [address] October, [facility] [address] [id number] [place] [address] Sep, [facility] [address] [id number] [place] [address] Sep, [facility] [address] [id number] [place] [address] Sep, [facility] [address] [id number] [place] [address] Sep, [facility] [address] [id number] [place] [address] Sep, [facility] [address] [id number] [place] [address] Aug, [facility] [address] [id number] [place] [address] Aug, [facility] [address] [id number] [place] [address] Aug, [facility] [address] [id number] [place] [address] Jul, [facility] [address] [id number] [place] [address] Jul, [facility] [address] [id number] [place] [address] Jul, [facility] [address] [id number] [place] [address] Jul, [facility] [address] [id number] [place] [address] Jul, [facility] [address] [id number] [place] [address] Jul, [facility] [id number] [place] [address] Jun, [facility] [id number] [place] [address] Apr, [facility] [address] [id number] [place] [address] Apr, [facility] [id number] [place] [address] Apr, [facility] [address] [id number] [place] [address] Apr, [facility] [address] [id number] [place] [address] Mar, [facility] [address] [id number] [place] [address] Mar, [facility] [id number] [place] [address] Mar, [facility] [address] [id number] [place] [address] Mar, [facility] [address] [id number] [place] [address] Mar, [facility] [id number] [place] [address] Feb, [facility] [id number] [place] [address] Jan, [facility] [id number] [place] [address] Jan, [facility] [id number] [place] [address] Jan, [facility] [id number] [place] [address] Dec, [facility] [id number] [place] [address] Nov, [facility] [id number] [place] [address] Nov, [facility] [id number] [place] [address] Nov, [facility] [id number] [place] [address] Nov, [facility] [id number] [place] [address] Nov, [facility] [id number] [place] [address] October, [facility] [id number] [place] [address] October, [facility] [id number] [place] [address] October, [facility] [id number] [place] [address] October, [facility] [id number] [place] [address] October, IMMUNIZATIONS No Known Immunizations SOCIAL HISTORY Never Assessed REASON FOR VISIT PLAN OF CARE VITAL SIGNS MEDICATIONS No Known Medications RESULTS No Results PROCEDURES Procedure Date Ordered Result Body Site COMPLETE CBC W/AUTO DIFF WBC September 07, 2013 ASSAY THYROID STIM HORMONE September 07, 2013 LIPID PANEL September 07, 2013 COMPREHEN METABOLIC PANEL September 07, 2013 VENIPUNCT, ROUTINE* September 07, 2013 INSTRUCTIONS MEDICATIONS ADMINISTERED No Known Medications [...]
--- OUTSIDE RECORDS SUMMARY | 2020-01-25 07:35 | XMS REPORT ---
Author Author Velma CORDERO Organization [facility] Address [address] [place] [address] Care Team Providers Care Circuit Breaker Supervisor Name Role Phone STEPHAN CORDERO Unavailable PROBLEMS Type Condition ICD9-CM Code [id number] Code Onset Dates Condition S tatus SNOMED Code Problem Primary insomnia F51.01 Active 397 2004 Problem Hypercholesteremia E78.0 Active 1 6073897 Problem Corns L84 Active 181026135 Problem Arthritis M19.90 Active 7307369 Problem Hyperparathyroidism E21.3 Active 14419537 Problem 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 Active 97626576 Problem 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 Active 41208786 Problem BPV (benign positional vertigo), bilateral H81.13 Active 075050618 Problem Unspecified kidney failure N19 Act chip 17511510 Problem Myalgia M79.1 Active 39259106 Problem 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 Active 490743862 Problem Mood disorder F39 Active 599406 05 Problem Chronic kidney disease, stage 4 (severe) N18.4 Active 142997719 Problem Primary osteoarthritis of left knee M17.12 Active 239172124546859 Problem Irritable bowel syndrome with both constipation and diarrh ea K58.2 Active 36182428 Problem Body mass index (BMI) of 40.0-44.9 in adult Z68.41 Active 067248043 ALLERGIES No Information ENCOUNTERS Encounter Location Date Diagnosis [facility] [id number] [place] [address] 05 Aug, 2019 [facility] [address] [address] 13 Jul, 2019 [facility] [address] [address] 06 Jul, 2019 Arthritis M19.90 [facility] [address] [address] Jun, Knee pain, left M25.562 [place] [id number] [address] May, Arthritis M19.90 [place] [address] [address] Apr, Well woman exam without gynecological ex am Z00.00 and Screening for breast cancer Z12.39 [place] [address] [address] Mar, Arthritis M19.90 [place] [address] [address] Mar, Arthritis M19.90 [place] [address] [address] Mar, [place] [address] [address] Mar, Arthritis M19.90 and Encounter for immun ization Z23 [place] [address] [address] Feb, Arthritis M19.90 [place] [address] [address] Feb, [place] [address] [address] Feb, Other specified disorders of bone densit y and structure, unspecified site M85.80 [place] [address] [address] Jan, Arthritis M19.90 [place] [address] [address] Dec, Arthritis M19.90 [place] [address] [address] Nov, Inflammatory spondylopathy of sacral reg ion M46.98 [place] [address] [address] Nov, [facility] [id number] [place] [address] Nov, Labyrinthitis of left ear H83.02 [facility] [address] [address] 03 Nov, 2018 Arthritis M19.90 [facility] [address] [address] 15 Sep, 2018 Arthritis M19.90 [facility] [address] [address] 08 Sep, 2018 Renal insufficiency N28.9 and Unspecifie d kidney failure N19 [facility] [address] [address] Sep, Renal insufficiency N28.9 and Unspecifie d kidney failure N19 [facility] [address] [address] Sep, Arthritis M19.90 [facility] [address] [address] Aug, Exercise counseling Z71.82 [facility] [address] [address] Aug, [facility] [address] [address] Jul, Labyrinthitis of left ear H83.02 [facility] [address] [address] Jul, Labyrinthitis of left ear H83.02 [facility] [address] [address] Jul, Exercise counseling Z71.82 [facility] [address] [address] Jul, [facility] [address] [address] Jul, Arthritis M19.90 [facility] [address] [address] 13 Jul, 2018 Encounter for Medicare annual wellness e xam Z00.00 ; Chronic kidney disease, stage 4 (severe) N18.4 ; Body mass index (BMI) of 40.0-44.9 in adult Z68.41 ; Hyperparathyroidism E21.3 and BMI 40.0-44.9, adult Z68.[address] [address] 13 Jul, 2018 Encounter for Medicare annual wellness e xam Z00.00 ; Chronic kidney disease, stage 4 (severe) N18.4 ; Hyperparathyroidism E21.3 ; Body mass index (BMI) of 40.0-44.9 in adult Z68.41 and Encounter for immunization Z23 [address] [address] 11 Jul, 2018 Tail bone pain M53.[address] [address] Jun, Exercise counseling Z71.[address] [address] Jun, Labyrinthitis of left ear H83.[address] [address] Jun, Tail bone pain M53.3 ; Irritable bowel s yndrome with both constipation and diarrhea K58.2 and Dysfunction of left eustachian tube H69.[address] [address] Jun, Exercise counseling Z71.[address] [address] Jun, Arthritis M19.[address] [address] 16 Jun, 2018 Irritable bowel syndrome with both const ipation and diarrhea K58.2 ; Tail bone pain M53.3 and Dysfunction of left eustachian tube H69.82 [facility] [address] [address] Jun, Exercise counseling Z71.82 [facility] [address] [address] Jun, Exercise counseling Z71.82 [facility] [address] [address] Jun, Labyrinthitis of left ear H83.02 [facility] [address] [address] May, Exercise counseling Z71.82 [place] [address] [address] May, Arthritis M19.90 [place] [address] [address] May, Exercise counseling Z71.82 [place] [address] [address] May, Exercise counseling Z71.82 [place] [address] [address] May, Labyrinthitis of left ear H83.02 [place] [address] [address] May, Exercise counseling Z71.82 [place] [address] [address] Apr, Arthritis M19.90 [facility] [address] [address] Apr, Exercise counseling Z71.82 [place] [address] [address] Apr, Exercise counseling Z71.82 [place] [address] [address] 08 Apr, 2018 Primary osteoarthritis of left knee M17. 12 [facility] [address] [address] Apr, Labyrinthitis of left ear H83.02 [place] [address] [address] Mar, Arthritis M19.90 [place] [address] [address] Mar, [place] [address] [address] Mar, Chronic kidney disease, stage 4 (severe) N18.4 [place] [address] [address] Mar, Chronic kidney disease, stage 4 (severe) N18.4 [place] [address] [address] Mar, Labyrinthitis of left ear H83.02 [place] [address] [address] Mar, Chronic kidney disease, stage 4 (severe) N18.4 ; Knee pain, left anterior M25.562 ; 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 and Encounter for immunization Z23 [place] [address] [address] Mar, Arthritis M19.90 [place] [address] [address] Feb, Labyrinthitis of left ear H83.02 [place] [address] [address] Feb, Arthritis M19.90 [place] [address] [address] Jan, Labyrinthitis of left ear H83.02 [place] [address] [address] Jan, Arthritis M19.90 [place] [address] [address] Dec, Labyrinthitis of left ear H83.02 [place] [address] [address] Nov, Arthritis M19.90 [place] [address] [address] Nov, Labyrinthitis of left ear H83.02 [place] [address] [address] Nov, BMI 40.0-44.9, adult Z68.41 ; Chronic ki dney disease, stage 4 (severe) N18.4 and Acute right-sided thoracic back pain M54.[address] [address] October, Labyrinthitis of left ear H83.02 and Art hritis M19.[address] [address] Sep, BPV (benign positional vertigo), bilater al H81.13 ; Dysfunction of left eustachian tube H69.82 and BMI 40.0-44.9, adult Z68.41 [place] [address] [address] Sep, Labyrinthitis of left ear H83.02 and Art hritis M19.90 [place] [address] [address] Sep, [place] [address] [address] Sep, [place] [address] [address] Sep, Chronic kidney disease, stage 4 (severe) N18.4 [place] [address] [address] Sep, Chronic kidney disease, stage 4 (severe) N18.4 [place] [address] [address] Aug, Labyrinthitis of left ear H83.02 and Art hritis M19.90 [facility] [address] [address] Aug, [facility] [address] [address] Jul, [facility] [address] [address] Jul, Arthritis M19.90 and Labyrinthitis of le ft ear H83.02 [facility] [address] [address] Jul, [facility] [address] [address] Jun, [facility] [address] [address] Jun, Arthritis M19.90 and Labyrinthitis of le ft ear H83.02 [place] [address] [address] Jun, Pre-op evaluation Z01.818 ; BMI 40.0-44. 9, adult Z68.41 and Encounter for immunization Z23 [place] [address] [address] May, Arthritis M19.90 and Labyrinthitis of le ft ear H83.02 [place] [address] [address] Apr, Labyrinthitis of left ear H83.02 [facility] [address] [address] Apr, Arthritis M19.90 and Labyrinthitis of le ft ear H83.02 [facility] [address] [address] Mar, Arthritis M19.90 and Labyrinthitis of le ft ear H83.02 [place] [address] [address] Mar, Chronic kidney disease, stage 4 (severe) N18.4 [place] [address] [address] Feb, Arthritis M19.90 and Labyrinthitis of le ft ear H83.02 [place] [address] [address] Jan, Labyrinthitis of left ear H83.02 and Def iciency 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 [place] [address] [address] Dec, Arthritis M19.90 [place] [address] [address] Dec, BPV (benign positional vertigo), bilater al H81.13 [place] [address] [address] Dec, [place] [address] [address] Dec, [place] [address] [address] Dec, [place] [address] [address] Nov, Arthritis M19.90 and 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 [place] [address] [address] Nov, Arthritis M19.90 [place] [address] [address] Nov, Hyperparathyroidism E21.3 [place] [address] [address] October, [place] [address] [address] October, Hyperparathyroidism E21.3 [place] [address] [address] October, [facility] [address] [address] October, Renal insufficiency N28.9 and Hyperparat hyroidism E21.3 [facility] [address] [address] October, [facility] [address] [address] October, Renal insufficiency N28.9 and Hyperparat hyroidism E21.3 [place] [address] [address] October, Arthritis M19.90 [place] [address] [address] Sep, [place] [address] [address] Sep, Lumbar neuritis M54.16 ; Thoracic absces s J86.9 and 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 [facility] [address] [address] Sep, [place] [address] [address] Aug, Arthritis M19.90 [place] [address] [address] Aug, Hyperparathyroidism E21.3 [facility] [address] [address] Aug, Hyperparathyroidism E21.3 [facility] [address] [address] Aug, Arthritis M19.90 [facility] [address] [address] Jul, Mass of throat R22.1 [facility] [address] [address] Jul, [facility] [address] [address] 10 Jul, 2016 Arthritis M19.90 [facility] [address] [address] Jun, Arthritis M19.90 [facility] [address] [address] Jun, [facility] [address] [address] Jun, Renal insufficiency N28.9 and Parathyroi d 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 [place] [address] [address] Jun, Medicare welcome exam Z00.00 ; Encounter for immunization Z23 ; Arthritis M19.90 ; Medicare annual wellness visit, initial Z00.00 ; Medicare annual wellness visit, subsequent Z00.00 and 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 [place] [address] [address] May, Renal insufficiency N28.9 and Parathyroi d 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 [place] [address] [address] May, Renal insufficiency N28.9 [place] [address] [address] May, Renal insufficiency N28.9 [place] [address] [address] May, [place] [address] [address] Apr, [place] [address] [address] Apr, [place] [address] [address] 14 Apr, 2016 Mass of throat R22.1 [place] [address] [address] Apr, [facility] [address] [address] Apr, Mass of throat R22.1 [facility] [address] [address] 04 Apr, 2016 Mass of throat R22.1 [facility] [address] [address] Mar, [facility] [address] [address] Mar, [facility] [address] [address] Mar, [facility] [address] [address] Mar, 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 for immunization Z23 [facility] [address] [address] Mar, [facility] [address] [address] Mar, [facility] [address] [address] 21 Feb, 2016 Renal insufficiency N28.9 and Hyperparat hyroidism E21.3 [facility] [address] [address] 19 Feb, 2016 [facility] [address] [address] 15 Feb, 2016 Renal insufficiency N28.9 and Hyperparat hyroidism E21.3 [facility] [address] [address] 14 Feb, 2016 [facility] [address] [address] 12 Feb, 2016 [facility] [address] [address] 09 Feb, 2016 [facility] [address] [address] Jan, [facility] [address] [address] Jan, Arthritis M19.90 ; Lumbago with sciatica , right side M54.41 and Other chronic pain G89.29 [place] [address] [address] Jan, [place] [address] [address] Dec, Arthritis M19.90 ; Lumbago with sciatica , right side M54.41 and Other chronic pain G89.29 [place] [address] [address] Nov, Deficiency of other specified B group vi tamins E53.8 ; Primary insomnia F51.01 ; Mood disorder F39 and Lumbago with sciatica, right side M54.41 [place] [address] [address] Nov, Hyperparathyroidism E21.3 [place] [address] [address] Nov, Unspecified kidney failure N19 and Hyper parathyroidism E21.3 [place] [address] [address] October, Hyperparathyroidism E21.3 [place] [address] [address] October, [place] [address] [address] October, Hyperparathyroidism E21.3 [place] [address] [address] October, Hyperparathyroidism E21.3 [place] [address] [address] Sep, Hyperparathyroidism E21.3 ; Hypercholest erolemia E78.0 and Arthritis M19.90 [place] [address] [address] Aug, [facility] [address] [address] Aug, Deficiency of other specified B group vi tamins E53.8 [facility] [address] [address] Aug, [facility] [address] [address] Jul, Urinary frequency R35.0 [facility] [address] [address] Jul, Urinary frequency R35.0 [facility] [address] [address] Jul, [facility] [address] [address] Jul, [facility] [address] [address] Jun, Pain in left knee M25.562 [place] [address] [address] Jun, [facility] [address] [address] May, Swelling of left knee joint M25.462 [facility] [address] [address] 16 May, 2015 [facility] [address] [address] May, [facility] [address] [address] May, [facility] [address] [address] Apr, Renal insufficiency N28.9 and Chronic ki dney disease, stage 4 (severe) N18.4 [facility] [address] [place] [address] Apr, Unspecified kidney failure N19 [facility] [id number] [place] [address] Apr, Unspecified kidney failure N19 [facility] [id number] [place] [address] Apr, [facility] [address] [place] [address] Apr, Hyperparathyroidism, unspecified 252.00 [facility] [id number] [place] [address] Apr, [facility] [address] [address] Mar, [facility] [id number] [place] [address] Mar, [facility] [address] [address] Mar, Hyperparathyroidism, unspecified 252.00 [facility] [id number] [place] [address] Feb, [facility] [address] [place] [address] Feb, Otalgia 388.70 [facility] [id number] [place] [address] Feb, [facility] [id number] [place] [address] Feb, [facility] [id number] [place] [address] Jan, [facility] [address] [address] Jan, Hyperparathyroidism, unspecified 252.00 [facility] [id number] [place] [address] Jan, [facility] [id number] [place] [address] Jan, Other B-complex deficiencies 266.2 and H yperparathyroidism, unspecified 252.00 [facility] [id number] [place] [address] Jan, [facility] [id number] [place] [address] Jan, [facility] [id number] [place] [address] Jan, [facility] [id number] [place] [address] Dec, [facility] [address] [address] Dec, [facility] [address] [address] Dec, [facility] [address] [address] Nov, Routine check-up V70.0 and Pre-op exam V 72.84 [facility] [id number] [place] [address] Nov, [facility] [id number] [place] [address] Nov, [facility] [id number] [place] [address] October, [facility] [id number] [place] [address] October, Other B-complex deficiencies 266.2 [facility] [id number] [place] [address] October, [facility] [id number] [place] [address] Sep, [facility] [id number] [place] [address] Sep, [facility] [id number] [place] [address] Aug, [facility] [address] [id number] [place] [address] 20 Aug, 2014 [facility] [address] [id number] [place] [address] 17 Aug, 2014 [facility] [address] [id number] [place] [address] Aug, 2014 [facility] [address] [id number] [place] [address] Aug, 2014 [facility] [address] [id number] [place] [address] Aug, 2014 [facility] [address] [id number] [place] [address] 18 Jul, 2014 [facility] [address] [id number] [place] [address] 18 Jul, 2014 [facility] [address] [id number] [place] [address] 17 Jul, 2014 [facility] [address] [id number] [place] [address] 17 Jul, 2014 [facility] [address] [id number] [place] [address] Jul, 2014 [facility] [address] [id number] [place] [address] 12 Jul, 2014 [facility] [address] [id number] [place] [id number] 10 Jul, 2014 [facility] [address] [id number] [place] [id number] 10 Jul, 2014 [facility] [address] [id number] [place] [id number] Jul, 2014 [facility] [address] [id number] [place] [id number] 09 Jul, 2014 [facility] [address] [id number] [place] [id number] 06 Jul, 2014 [facility] [address] [id number] [place] [id number] Jul, [facility] [address] [facility] [id number] [place] [id number] Jul, [facility] [address] [id number] [place] [id number] Jul, [facility] [address] [id number] [place] [id number] Jun, [facility] [address] [id number] [place] [id number] Jun, [facility] [address] [id number] [place] [id number] Jun, [facility] [address] [id number] [place] [id number] Jun, [facility] [address] [id number] [place] [id number] Jun, [facility] [address] [id number] [place] [id number] Jun, [facility] [address] [id number] [place] [id number] Jun, [facility] [address] [id number] [place] [id number] Jun, [facility] [address] [id number] [place] [id number] Jun, [facility] [address] [id number] [place] [id number] Jun, [facility] [address] [id number] [place] [id number] Jun, [facility] [address] [id number] [place] [id number] Jun, [facility] [address] [id number] [place] [id number] Jun, [facility] [address] [id number] [place] [id number] Jun, [facility] [address] [id number] [place] [id number] May, [facility] [address] [id number] [place] [id number] May, [facility] [place] [facility] [address] [id number] [place] [address] May, [facility] [place] [facility] [address] [id number] [place] [address] May, [facility] [place] [facility] [address] [facility] [id number] [place] [address] Apr, [facility] [place] [facility] [address] [id number] [place] [address] Apr, [facility] [place] [facility] [address] [id number] [place] [address] Apr, [facility] [place] [facility] [address] [id number] [place] [address] Apr, [facility] [place] [facility] [address] [id number] [place] [address] Apr, [facility] [place] [facility] [address] [id number] [place] [address] Apr, [facility] [place] [facility] [address] [id number] [place] [address] Mar, [facility] [place] [facility] [address] [id number] [place] [address] Mar, [facility] [place] [facility] [address] [id number] [place] [address] Mar, [facility] [place] [facility] [address] [id number] [place] [address] Mar, [facility] [place] [facility] [address] [id number] [place] [address] Mar, [facility] [place] [facility] [address] [id number] [place] [address] Mar, [facility] [place] [facility] [address] [id number] [place] [address] Mar, 2013 [facility] [place] [facility] [address] [facility] [id number] [place] [address] Mar, [facility] [place] [facility] [address] [facility] [id number] [place] [address] Mar, [facility] [place] [facility] [address] [id number] [place] [address] Mar, [facility] [place] [facility] [address] [facility] [id number] [place] [address] Mar, [facility] [place] [facility] [address] [facility] [id number] [place] [address] Mar, [facility] [place] [facility] [address] [id number] [place] [address] Mar, [facility] [place] [facility] [address] [id number] [place] [address] Feb, 2013 [facility] [place] [facility] [address] [id number] [place] [address] 26 Feb, 2013 [facility] [place] [facility] [address] [id number] [place] [address] 23 Feb, 2013 [facility] [place] [facility] [address] [id number] [place] [address] 23 Feb, 2013 [facility] [place] [facility] [address] [id number] [place] [address] 19 Feb, 2013 [facility] [place] [facility] [address] [id number] [place] [address] 19 Feb, 2013 [facility] [place] [facility] [address] [facility] [id number] [place] [address] 13 Sep, 2013 [facility] [place] [facility] [address] [id number] [place] [address] 13 Sep, 2013 [facility] [place] [facility] [address] [id number] [place] [address] 12 Feb, 2013 [facility] [place] [facility] [address] [id number] [place] [address] 12 Feb, 2013 [facility] [place] [facility] [address] [facility] [id number] [place] [address] Jan, [facility] [place] [facility] [address] [facility] [id number] [place] [address] Jan, [facility] [place] [facility] [address] [facility] [id number] [place] [address] Dec, [facility] [place] [facility] [address] [id number] [place] [address] Dec, [facility] [place] [facility] [address] [facility] [id number] [place] [address] Dec, [facility] [place] [facility] [address] [facility] [id number] [place] [address] Dec, [facility] [place] [facility] [address] [id number] [place] [address] Dec, [facility] [place] [facility] [address] [id number] [place] [address] Dec, [facility] [place] [facility] [address] [id number] [place] [address] Nov, [facility] [place] [facility] [address] [id number] [place] [address] Nov, [facility] [place] [facility] [address] [id number] [place] [address] Nov, [facility] [place] [facility] [address] [id number] [place] [address] Nov, [facility] [place] [facility] [address] [id number] [place] [address] October, [facility] [place] [facility] [address] [facility] [id number] [place] [address] October, [facility] [place] [facility] [address] [id number] [place] [address] October, [facility] [place] [facility] [address] [id number] [place] [address] October, [facility] [place] [facility] [address] [id number] [place] [address] October, [facility] [place] [facility] [address] [id number] [place] [address] October, [facility] [place] [facility] [address] [id number] [place] [address] October, [facility] [place] [facility] [address] [id number] [place] [address] October, [facility] [place] [facility] [address] [id number] [place] [address] October, [facility] [place] [facility] [address] [facility] [id number] [place] [address] October, [facility] [place] [facility] [address] [id number] [place] [address] October, [facility] [place] [facility] [address] [id number] [place] [address] October, [facility] [place] [facility] [address] [id number] [place] [address] October, [facility] [place] [facility] [address] [id number] [place] [address] October, [facility] [place] [facility] [address] [id number] [place] [address] October, [facility] [place] [facility] [address] [id number] [place] [address] October, [facility] [place] [facility] [address] [id number] [place] [address] Sep, [facility] [place] [facility] [address] [id number] [place] [address] Sep, [facility] [place] [facility] [address] [id number] [place] [address] Sep, [facility] [place] [facility] [address] [id number] [place] [address] Sep, [facility] [place] [facility] [address] [id number] [place] [address] Sep, [facility] [place] [facility] [address] [id number] [place] [address] 02 Sep, 2013 [facility] [place] [facility] [address] [facility] [id number] [place] [address] Aug, [facility] [place] [facility] [address] [facility] [id number] [place] [address] Aug, [facility] [place] [facility] [address] [id number] [place] [address] Aug, [facility] [place] [facility] [address] [id number] [place] [address] Aug, [facility] [place] [facility] [address] [facility] [id number] [place] [address] Aug, [facility] [place] [facility] [address] [id number] [place] [address] Aug, [facility] [place] [facility] [address] [id number] [place] [address] Jul, [facility] [place] [facility] [address] [id number] [place] [address] Jul, [facility] [place] [facility] [address] [id number] [place] [address] Jul, [facility] [place] [facility] [address] [id number] [place] [address] Jul, [facility] [place] [facility] [address] [id number] [place] [address] Jun, [facility] [place] [facility] [address] [id number] [place] [address] Jun, [facility] [place] [facility] [address] [id number] [place] [address] May, [facility] [place] [facility] [address] [id number] [place] [address] May, [facility] [place] [facility] [address] [id number] [place] [address] May, [facility] [place] [facility] [address] [id number] [place] [address] May, [facility] [place] [facility] [address] [id number] [place] [address] May, [facility] [place] [facility] [address] [id number] [place] [address] Apr, [facility] [place] [facility] [address] [id number] [place] [address] Apr, [facility] [place] [facility] [address] [id number] [place] [address] Apr, [facility] [place] [facility] [address] [id number] [place] [address] Apr, [facility] [place] [facility] [address] [id number] [place] [address] Apr, [facility] [place] [facility] [address] [id number] [place] [address] Apr, [facility] [place] [facility] [address] [id number] [place] [id number] 15 Mar, 2013 [facility] [place] [facility] [address] [id number] [place] [address] 15 Mar, 2013 [facility] [place] [facility] [address] [id number] [place] [address] 14 Mar, 2013 [facility] [place] [facility] [address] [id number] [place] [address] 14 Mar, 2013 [facility] [place] [facility] [address] [id number] [place] [address] 11 Mar, 2013 [facility] [place] [facility] [address] [id number] [place] [address] 11 Mar, 2013 [facility] [place] [facility] [address] [id number] [place] [address] 23 Feb, 2013 [facility] [place] [facility] [address] [id number] [place] [address] 19 Feb, 2013 [facility] [place] [facility] [address] [id number] [place] [address] 04 Feb, 2013 [facility] [place] [facility] [address] [id number] [place] [address] Jan, [facility] [place] [facility] [address] [id number] [place] [address] Jan, [facility] [place] [facility] [address] [facility] [id number] [place] [address] Jan, [facility] [place] [facility] [address] [facility] [id number] [place] [address] Jan, [facility] [place] [facility] [address] [facility] [id number] [place] [address] Jan, [facility] [place] [facility] [address] [facility] [id number] [place] [address] Jan, [facility] [place] [facility] [address] [facility] [id number] [place] [address] Dec, [facility] [place] [facility] [address] [id number] [place] [address] Dec, [facility] [place] [facility] [address] [id number] [place] [address] Dec, [facility] [place] [facility] [address] [facility] [id number] [place] [address] Dec, [facility] [place] [facility] [address] [id number] [place] [address] Dec, [facility] [place] [facility] [address] [id number] [place] [address] Dec, [facility] [place] [facility] [address] [id number] [place] [address] Nov, [facility] [place] [facility] [address] [facility] [id number] [place] [address] Nov, [facility] [place] [facility] [address] [id number] [place] [address] Nov, [facility] [place] [facility] [address] [id number] [place] [address] Nov, [facility] [place] [facility] [address] [id number] [place] [address] Nov, [facility] [place] [facility] [address] [id number] [place] [address] Nov, [facility] [place] [facility] [address] [id number] [place] [address] October, [facility] [place] [facility] [address] [id number] [place] [address] October, [facility] [place] [facility] [address] [id number] [place] [address] October, [facility] [place] [facility] [address] [id number] [place] [address] October, [facility] [place] [facility] [address] [id number] [place] [address] October, [facility] [place] [facility] [address] [id number] [place] [address] Sep, [facility] [place] [facility] [address] [id number] [place] [address] Sep, [facility] [place] [facility] [address] [id number] [place] [address] Sep, [facility] [place] [facility] [address] [id number] [place] [address] Sep, [facility] [place] [facility] [address] [id number] [place] [address] Sep, [facility] [place] [facility] [address] [id number] [place] [address] Aug, [facility] [place] [facility] [address] [id number] [place] [address] Aug, [facility] [place] [facility] [address] [id number] [place] [address] Aug, [facility] [place] [facility] [address] [id number] [place] [address] Jul, [facility] [place] [facility] [address] [id number] [place] [address] Jul, [facility] [place] [facility] [address] [id number] [place] [address] Jul, [facility] [place] [facility] [address] [id number] [place] [address] 08 Jul, 2012 [facility] [place] [facility] [address] [id number] [place] [address] Jul, [facility] [place] [facility] [address] [id number] [place] [address] Jul, [facility] [place] [facility] [address] [id number] [place] [address] Jun, [facility] [place] [facility] [address] [id number] [place] [address] Apr, [facility] [place] [facility] [address] [id number] [place] [address] Apr, [facility] [place] [facility] [address] [id number] [place] [address] Apr, [facility] [place] [facility] [address] [id number] [place] [address] Apr, [facility] [place] [facility] [address] [id number] [place] [address] Mar, [facility] [place] [facility] [address] [id number] [place] [address] Mar, [facility] [place] [facility] [address] [id number] [place] [address] Mar, [facility] [place] [facility] [address] [id number] [place] [address] Mar, [facility] [place] [facility] [address] [id number] [place] [address] Mar, [facility] [place] [facility] [address] [id number] [place] [address] Feb, [facility] [place] [facility] [address] [id number] [place] [address] Jan, [facility] [place] [facility] [address] [id number] [place] [address] Jan, [facility] [place] [facility] [address] [id number] [place] [address] Jan, [facility] [address] [id number] [place] [address] Dec, [facility] [address] [id number] [place] [address] Nov, [facility] [address] [id number] [place] [address] Nov, [facility] [address] [id number] [place] [address] Nov, [facility] [address] [id number] [place] [address] Nov, [facility] [address] [id number] [place] [address] Nov, [facility] [address] [id number] [place] [address] October, [facility] [address] [id number] [place] [address] October, [facility] [address] [id number] [place] [address] October, [facility] [address] [id number] [place] [address] October, [facility] [address] [id number] [place] [address] October, IMMUNIZATIONS No Known Immunizations SOCIAL HISTORY [...]
--- OUTSIDE RECORDS SUMMARY | 2020-01-25 07:35 | XMS REPORT ---
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 Role Phone STEPHAN CORDERO Unavailable PROBLEMS Type Condition ICD9-CM Code IIO29-OL Code Onset Dates Condition S tatus SNOMED Code Problem Corns L84 Active 375736974 Problem Primary insomnia F51.01 Active 397 2004 Problem Hyperparathyroidism E21.3 Active 96406609 Problem Hypercholesteremia E78.0 Active 1 9740645 Problem Mood disorder F39 Active 868999 05 Problem Arthritis M19.90 Active 0931341 Problem 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 Active 61198971 Problem Myalgia M79.1 Active 66669544 Problem Chronic kidney disease, stage 4 (severe) N18.4 Active 602106264 Problem Primary osteoarthritis of left knee M17.12 Active 491610798809239 Problem Irritable bowel syndrome with both constipation and diarrh ea K58.2 Active 79990224 Problem Other chronic pain G89.29 Active 8 8800063 Problem BPV (benign positional vertigo), bilateral H81.13 Active 664231928 Problem Hyperparathyroidism, unspecified E21.3 Active 65262400 Problem 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 Active 85996245 Problem Body mass index (BMI) of 40.0-44.9 in adult Z68.41 Active 117328521 Problem Unspecified kidney failure N19 Act chip 52958310 Problem 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 Active 132773750 Problem Unspecified inflammatory spo ndylopathy, sacral and sacrococcygeal region M46.98 Active 54367700 ALLERGIES No Information ENCOUNTERS Encounter Location Date Diagnosis [facility] [address] [facility] [id number] [place] [address] 05 Aug, 2019 Pain in left knee M25.562 ; Other chroni c pain G89.29 ; Unspecified inflammatory spondylopathy, sacral and sacrococcygeal region M46.98 ; Chronic kidney disease, stage 4 (severe) N18.4 and Hyperparathyroidism, unspecified E21.3 [place] [address] [address] Jul, [place] [address] [address] Jul, Arthritis M19.90 [place] [address] [address] Jun, Knee pain, left M25.[address] [address] May, Arthritis M19.[address] [address] Apr, Well woman exam without gynecological ex am Z00.00 and Screening for breast cancer Z12.[address] [address] Mar, Arthritis M19.90 [place] [address] [address] Mar, Arthritis M19.[address] [address] Mar, [address] [address] Mar, Arthritis M19.90 and Encounter for immun ization Z23 [address] [address] Feb, Arthritis M19.90 [place] [address] [address] Feb, [address] [address] Feb, Other specified disorders of bone densit y and structure, unspecified site M85.[address] [address] Jan, Arthritis M19.90 [facility] [address] [address] Dec, Arthritis M19.90 [facility] [address] [address] Nov, Inflammatory spondylopathy of sacral reg ion M46.98 [facility] [address] [address] Nov, [facility] [address] [address] Nov, Labyrinthitis of left ear H83.02 [facility] [address] [address] Nov, Arthritis M19.90 [facility] [address] [address] Sep, Arthritis M19.90 [facility] [address] [address] Sep, Renal insufficiency N28.9 and Unspecifie d kidney failure N19 [facility] [address] [address] Sep, Renal insufficiency N28.9 and Unspecifie d kidney failure N19 [facility] [address] [address] Sep, Arthritis M19.90 [facility] [address] [address] Aug, Exercise counseling Z71.82 [facility] [address] [address] Aug, [facility] [address] [address] Jul, Labyrinthitis of left ear H83.02 [facility] [address] [address] Jul, Labyrinthitis of left ear H83.02 [place] [address] [address] 19 Jul, 2018 Exercise counseling Z71.82 [place] [address] [address] 18 Jul, 2018 [place] [address] [address] 14 Jul, 2018 Arthritis M19.90 [place] [address] [address] 13 Jul, 2018 Encounter for Medicare annual wellness e xam Z00.00 ; Chronic kidney disease, stage 4 (severe) N18.4 ; Body mass index (BMI) of 40.0-44.9 in adult Z68.41 ; Hyperparathyroidism E21.3 and BMI 40.0-44.9, adult Z68.41 [place] [address] [address] 13 Jul, 2018 Encounter for Medicare annual wellness e xam Z00.00 ; Chronic kidney disease, stage 4 (severe) N18.4 ; Hyperparathyroidism E21.3 ; Body mass index (BMI) of 40.0-44.9 in adult Z68.41 and Encounter for immunization Z23 [place] [address] [address] Jul, Tail bone pain M53.3 [place] [address] [address] Jun, Exercise counseling Z71.82 [place] [address] [address] Jun, Labyrinthitis of left ear H83.[address] [address] Jun, Tail bone pain M53.3 ; Irritable bowel s yndrome with both constipation and diarrhea K58.2 and Dysfunction of left eustachian tube H69.82 [place] [address] [address] Jun, Exercise counseling Z71.82 [facility] [address] [address] Jun, Arthritis M19.90 [facility] [address] [address] Jun, Irritable bowel syndrome with both const ipation and diarrhea K58.2 ; Tail bone pain M53.3 and Dysfunction of left eustachian tube H69.82 [facility] [address] [address] Jun, Exercise counseling Z71.82 [place] [address] [address] Jun, Exercise counseling Z71.82 [place] [address] [address] Jun, Labyrinthitis of left ear H83.02 [place] [address] [address] May, Exercise counseling Z71.82 [place] [address] [address] May, Arthritis M19.90 [place] [address] [address] May, Exercise counseling Z71.82 [place] [address] [address] May, Exercise counseling Z71.82 [place] [address] [address] May, Labyrinthitis of left ear H83.02 [place] [address] [address] May, Exercise counseling Z71.82 [place] [address] [address] Apr, Arthritis M19.90 [facility] [address] [address] Apr, Exercise counseling Z71.82 [place] [address] [address] Apr, Exercise counseling Z71.82 [place] [address] [address] Apr, Primary osteoarthritis of left knee M17. 12 [place] [address] [address] Apr, Labyrinthitis of left ear H83.02 [place] [address] [address] Mar, Arthritis M19.90 [place] [address] [address] Mar, [place] [address] [address] Mar, Chronic kidney disease, stage 4 (severe) N18.4 [place] [address] [address] Mar, Chronic kidney disease, stage 4 (severe) N18.4 [place] [address] [address] Mar, Labyrinthitis of left ear H83.02 [place] [address] [address] Mar, Chronic kidney disease, stage 4 (severe) N18.4 ; Knee pain, left anterior M25.562 ; 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 and Encounter for immunization Z23 [place] [address] [address] Mar, Arthritis M19.90 [place] [address] [address] Feb, Labyrinthitis of left ear H83.02 [place] [address] [address] Feb, Arthritis M19.90 [place] [address] [address] Jan, Labyrinthitis of left ear H83.02 [place] [address] [address] Jan, Arthritis M19.90 [place] [address] [address] Dec, Labyrinthitis of left ear H83.02 [place] [address] [address] Nov, Arthritis M19.90 [place] [address] [address] Nov, Labyrinthitis of left ear H83.02 [place] [address] [address] Nov, BMI 40.0-44.9, adult Z68.41 ; Chronic ki dney disease, stage 4 (severe) N18.4 and Acute right-sided thoracic back pain M54.6 [place] [address] [address] October, Labyrinthitis of left ear H83.02 and Art hritis M19.90 [place] [address] [address] Sep, BPV (benign positional vertigo), bilater al H81.13 ; Dysfunction of left eustachian tube H69.82 and BMI 40.0-44.9, adult Z68.41 [place] [address] [address] Sep, Labyrinthitis of left ear H83.02 and Art hritis M19.90 [place] [address] [address] Sep, [place] [address] [address] Sep, [facility] [address] [address] Sep, Chronic kidney disease, stage 4 (severe) N18.4 [facility] [address] [address] Sep, Chronic kidney disease, stage 4 (severe) N18.4 [facility] [address] [address] Aug, Labyrinthitis of left ear H83.02 and Art hritis M19.90 [place] [address] [address] Aug, [place] [address] [address] Jul, [place] [address] [address] Jul, Arthritis M19.90 and Labyrinthitis of le ft ear H83.02 [place] [address] [address] Jul, [place] [address] [address] Jun, [place] [address] [address] Jun, Arthritis M19.90 and Labyrinthitis of le ft ear H83.02 [place] [address] [address] Jun, Pre-op evaluation Z01.818 ; BMI 40.0-44. 9, adult Z68.41 and Encounter for immunization Z23 [place] [address] [address] May, Arthritis M19.90 and Labyrinthitis of le ft ear H83.02 [place] [address] [address] Apr, Labyrinthitis of left ear H83.02 [facility] [address] [address] 07 Apr, 2017 Arthritis M19.90 and Labyrinthitis of le ft ear H83.02 [facility] [address] [address] 10 Mar, 2017 Arthritis M19.90 and Labyrinthitis of le ft ear H83.02 [facility] [address] [address] 05 Mar, 2017 Chronic kidney disease, stage 4 (severe) N18.4 [place] [address] [address] Feb, Arthritis M19.90 and Labyrinthitis of le ft ear H83.02 [place] [address] [address] Jan, Labyrinthitis of left ear H83.02 and Def iciency 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 [place] [address] [address] Dec, Arthritis M19.90 [place] [address] [address] Dec, BPV (benign positional vertigo), bilater al H81.13 [place] [address] [address] Dec, [place] [address] [address] Dec, [facility] [address] [address] Dec, [place] [address] [address] Nov, Arthritis M19.90 and 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 [facility] [address] [address] Nov, Arthritis M19.90 [facility] [address] [address] Nov, Hyperparathyroidism E21.3 [facility] [address] [address] October, [facility] [address] [address] October, Hyperparathyroidism E21.3 [facility] [address] [address] October, [facility] [address] [address] October, Renal insufficiency N28.9 and Hyperparat hyroidism E21.3 [facility] [address] [address] October, [facility] [address] [address] October, Renal insufficiency N28.9 and Hyperparat hyroidism E21.3 [facility] [address] [address] October, Arthritis M19.90 [facility] [address] [address] Sep, [facility] [address] [address] Sep, Lumbar neuritis M54.16 ; Thoracic absces s J86.9 and 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 [facility] [address] [address] Sep, [facility] [address] [address] Aug, Arthritis M19.90 [facility] [address] [address] Aug, Hyperparathyroidism E21.3 [facility] [address] [address] Aug, Hyperparathyroidism E21.3 [place] [address] [address] Aug, Arthritis M19.90 [place] [address] [address] Jul, Mass of throat R22.1 [place] [address] [address] Jul, [place] [address] [address] Jul, Arthritis M19.90 [place] [address] [address] Jun, Arthritis M19.90 [place] [address] [address] Jun, [place] [address] [address] Jun, Renal insufficiency N28.9 and Parathyroi d 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 [place] [address] [address] Jun, Medicare welcome exam Z00.00 ; Encounter for immunization Z23 ; Arthritis M19.90 ; Medicare annual wellness visit, initial Z00.00 ; Medicare annual wellness visit, subsequent Z00.00 and 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 [place] [address] [address] May, Renal insufficiency N28.9 and Parathyroi d 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 [place] [address] [address] May, Renal insufficiency N28.9 [place] [address] [address] May, Renal insufficiency N28.9 [place] [address] [address] May, [place] [address] [address] 16 Apr, 2016 [facility] [address] [address] 16 Apr, 2016 [facility] [address] [address] 14 Apr, 2016 Mass of throat R22.1 [facility] [address] [address] 10 Apr, 2016 [facility] [address] [address] 10 Apr, 2016 Mass of throat R22.1 [facility] [address] [address] Apr, Mass of throat R22.1 [facility] [address] [address] Mar, [facility] [address] [address] Mar, [facility] [address] [address] Mar, [facility] [address] [address] 24 Mar, 2016 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 for immunization Z23 [place] [address] [address] 17 Mar, 2016 [facility] [address] [address] Mar, [facility] [address] [address] 21 Feb, 2016 Renal insufficiency N28.9 and Hyperparat hyroidism E21.3 [facility] [address] [address] 19 Feb, 2016 [facility] [address] [address] 15 Feb, 2016 Renal insufficiency N28.9 and Hyperparat hyroidism E21.3 [place] [address] [address] 14 Feb, 2016 [place] [address] [address] Feb, [place] [address] [address] Feb, [place] [address] [address] Jan, [place] [address] [address] Jan, Arthritis M19.90 ; Lumbago with sciatica , right side M54.41 and Other chronic pain G89.29 [place] [address] [address] Jan, [place] [address] [address] Dec, Arthritis M19.90 ; Lumbago with sciatica , right side M54.41 and Other chronic pain G89.29 [place] [address] [address] Nov, Deficiency of other specified B group vi tamins E53.8 ; Primary insomnia F51.01 ; Mood disorder F39 and Lumbago with sciatica, right side M54.41 [place] [address] [address] Nov, Hyperparathyroidism E21.3 [place] [address] [address] Nov, Unspecified kidney failure N19 and Hyper parathyroidism E21.3 [place] [address] [address] October, Hyperparathyroidism E21.3 [place] [address] [address] October, [place] [address] [address] 10 Oct, 2015 Hyperparathyroidism E21.3 [facility] [address] [address] October, Hyperparathyroidism E21.3 [facility] [address] [address] Sep, Hyperparathyroidism E21.3 ; Hypercholest erolemia E78.0 and Arthritis M19.90 [place] [address] [address] Aug, [facility] [address] [address] Aug, Deficiency of other specified B group vi tamins E53.8 [place] [address] [address] Aug, [place] [address] [address] Jul, Urinary frequency R35.0 [place] [address] [address] Jul, Urinary frequency R35.0 [place] [address] [address] Jul, [place] [address] [address] Jul, [place] [address] [address] Jun, Pain in left knee M25.562 [place] [address] [address] Jun, [place] [address] [address] May, Swelling of left knee joint M25.462 [place] [address] [address] May, [place] [address] [place] [address] May, [facility] [address] [place] [id number] [place] [address] May, [facility] [address] [place] [id number] [place] [address] Apr, Renal insufficiency N28.9 and Chronic ki dney disease, stage 4 (severe) N18.4 [facility] [address] [place] [id number] [place] [address] Apr, Unspecified kidney failure N19 [facility] [address] [address] Apr, Unspecified kidney failure N19 [facility] [address] [address] Apr, [facility] [address] [address] Apr, Hyperparathyroidism, unspecified 252.00 [facility] [address] [place] [id number] [place] [address] Apr, [facility] [address] [address] Mar, [facility] [address] [place] [id number] [place] [address] Mar, [facility] [address] [address] Mar, Hyperparathyroidism, unspecified 252.00 [facility] [address] [place] [id number] [place] [address] Feb, [facility] [address] [address] Feb, Otalgia 388.70 [facility] [address] [place] [id number] [place] [address] Feb, [facility] [address] [place] [id number] [place] [address] Feb, [facility] [address] [place] [id number] [place] [address] Jan, [facility] [address] [place] [address] [id number] [place] [address] Jan, Hyperparathyroidism, unspecified 252.00 [facility] [address] [place] [id number] [place] [address] Jan, [facility] [address] [place] [id number] [place] [address] Jan, Other B-complex deficiencies 266.2 and H yperparathyroidism, unspecified 252.00 [facility] [address] [place] [id number] [place] [address] Jan, [facility] [address] [place] [id number] [place] [address] Jan, [facility] [address] [place] [id number] [place] [address] Jan, [facility] [address] [place] [id number] [place] [address] Dec, [facility] [address] [place] [id number] [place] [address] Dec, [facility] [address] [place] [id number] [place] [address] Dec, [facility] [address] [place] [address] [id number] [place] [address] Nov, Routine check-up V70.0 and Pre-op exam V 72.84 [facility] [address] [place] [address] [id number] [place] [address] Nov, [facility] [address] [place] [address] [id number] [place] [address] Nov, [facility] [address] [place] [id number] [place] [address] October, [facility] [address] [place] [address] [id number] [place] [address] October, Other B-complex deficiencies 266.2 [facility] [address] [id number] [place] [address] 12 Oct, 2014 [facility] [address] [facility] [id number] [place] [address] 14 Sep, 2014 [facility] [address] [id number] [place] [address] 13 Sep, 2014 [facility] [address] [id number] [place] [address] 20 Aug, 2014 [facility] [address] [id number] [place] [address] 20 Aug, 2014 [facility] [address] [id number] [place] [address] 17 Aug, 2014 [facility] [address] [id number] [place] [address] Aug, [facility] [address] [id number] [place] [address] Aug, [facility] [address] [id number] [place] [address] Aug, [facility] [address] [id number] [place] [address] 18 Jul, 2014 [facility] [address] [id number] [place] [address] 18 Jul, 2014 [facility] [address] [id number] [place] [address] 17 Jul, 2014 [facility] [address] [id number] [place] [address] 17 Jul, 2014 [facility] [address] [id number] [place] [address] 12 Jul, 2014 [facility] [address] [id number] [place] [address] 12 Jul, 2014 [facility] [address] [id number] [place] [address] 10 Jul, 2014 [facility] [address] [id number] [place] [address] Jul, [facility] [address] [id number] [place] [address] Jul, [facility] [address] [id number] [place] [address] Jul, [facility] [address] [id number] [place] [address] Jul, [facility] [address] [id number] [place] [address] Jul, [facility] [address] [id number] [place] [address] Jul, [facility] [address] [id number] [place] [address] Jul, [facility] [address] [id number] [place] [address] Jun, [facility] [address] [id number] [place] [address] Jun, [facility] [address] [id number] [place] [address] Jun, [facility] [address] [id number] [place] [address] Jun, [facility] [address] [id number] [place] [address] Jun, [facility] [address] [id number] [place] [address] Jun, [facility] [address] [id number] [place] [address] Jun, [facility] [id number] [place] [address] Jun, [facility] [address] [id number] [place] [address] Jun, [facility] [address] [id number] [place] [address] Jun, [facility] [address] [id number] [place] [address] Jun, [facility] [address] [id number] [place] [address] Jun, [facility] [address] [id number] [place] [address] Jun, [facility] [address] [id number] [place] [address] Jun, [facility] [address] [id number] [place] [address] May, [facility] [address] [id number] [place] [address] May, [facility] [address] [id number] [place] [address] May, [facility] [address] [id number] [place] [address] May, [facility] [address] [id number] [place] [address] Apr, [facility] [address] [id number] [place] [address] Apr, [facility] [address] [id number] [place] [address] Apr, [facility] [address] [id number] [place] [address] Apr, [facility] [address] [id number] [place] [address] Apr, [facility] [address] [id number] [place] [address] Apr, [facility] [address] [id number] [place] [address] Mar, [facility] [address] [id number] [place] [address] Mar, [facility] [address] [id number] [place] [address] Mar, 2013 [facility] [address] [facility] [id number] [place] [address] 22 Mar, 2013 [facility] [address] [facility] [id number] [place] [address] 15 Mar, 2013 [facility] [address] [facility] [id number] [place] [address] 15 Mar, 2013 [facility] [address] [facility] [id number] [place] [address] 13 Mar, 2013 [facility] [address] [facility] [id number] [place] [address] 13 Mar, 2013 [facility] [address] [id number] [place] [address] 07 Mar, 2013 [facility] [address] [id number] [place] [address] 07 Mar, 2013 [facility] [address] [id number] [place] [address] 07 Mar, 2013 [facility] [address] [facility] [id number] [place] [address] 07 Mar, 2013 [facility] [address] [id number] [place] [address] 06 Mar, 2013 [facility] [address] [id number] [place] [address] 26 Feb, 2013 [facility] [address] [id number] [place] [address] 26 Sep, 2013 [facility] [address] [facility] [id number] [place] [address] 23 Sep, 2013 [facility] [address] [facility] [id number] [place] [address] 23 Sep, 2013 [facility] [address] [id number] [place] [address] 19 Sep, 2013 [facility] [address] [id number] [place] [address] 19 Sep, 2013 [facility] [address] [id number] [place] [address] 13 Feb, 2014 [facility] [address] [id number] [place] [address] 13 Feb, 2014 [facility] [address] [facility] [id number] [place] [address] Feb, [facility] [address] [id number] [place] [address] Feb, [facility] [address] [facility] [id number] [place] [address] Jan, [facility] [address] [facility] [id number] [place] [address] Jan, [facility] [address] [id number] [place] [address] Dec, [facility] [address] [id number] [place] [address] Dec, [facility] [address] [id number] [place] [address] Dec, [facility] [address] [facility] [id number] [place] [address] Dec, [facility] [address] [id number] [place] [address] Dec, [facility] [address] [id number] [place] [address] Dec, [facility] [address] [id number] [place] [address] Nov, [facility] [address] [facility] [id number] [place] [address] Nov, [facility] [address] [id number] [place] [address] Nov, [facility] [address] [id number] [place] [address] Nov, [facility] [address] [id number] [place] [address] October, [facility] [address] [id number] [place] [address] October, [facility] [address] [id number] [place] [address] October, [facility] [address] [id number] [place] [address] October, [facility] [address] [id number] [place] [address] October, [facility] [address] [id number] [place] [address] October, [facility] [address] [id number] [place] [address] October, [facility] [address] [id number] [place] [address] October, [facility] [address] [id number] [place] [address] October, [facility] [address] [id number] [place] [address] October, [facility] [address] [id number] [place] [address] October, [facility] [address] [id number] [place] [address] October, [facility] [address] [id number] [place] [address] October, [facility] [address] [id number] [place] [address] October, [facility] [address] [id number] [place] [address] October, [facility] [address] [id number] [place] [address] October, [facility] [address] [id number] [place] [address] Sep, [facility] [address] [id number] [place] [address] Sep, [facility] [address] [facility] [id number] [place] [address] Sep, [facility] [address] [facility] [id number] [place] [address] Sep, [facility] [address] [facility] [id number] [place] [address] Sep, [facility] [address] [facility] [id number] [place] [address] Sep, [facility] [address] [facility] [id number] [place] [address] Aug, [facility] [address] [facility] [id number] [place] [address] Aug, [facility] [address] [id number] [place] [address] Aug, [facility] [address] [id number] [place] [address] Aug, [facility] [address] [facility] [id number] [place] [address] Aug, [facility] [address] [id number] [place] [address] Aug, [facility] [address] [id number] [place] [address] Jul, [facility] [address] [id number] [place] [address] Jul, [facility] [address] [facility] [id number] [place] [address] Jul, [facility] [address] [facility] [id number] [place] [address] Jul, [facility] [address] [id number] [place] [address] Jun, [facility] [address] [id number] [place] [address] Jun, [facility] [address] [id number] [place] [address] 11 May, 2013 [facility] [address] [id number] [place] [address] 11 May, 2013 [facility] [address] [id number] [place] [address] 10 May, 2013 [facility] [address] [id number] [place] [address] May, [facility] [address] [id number] [place] [address] May, [facility] [address] [id number] [place] [address] Apr, [facility] [address] [id number] [place] [address] Apr, [facility] [address] [id number] [place] [address] Apr, [facility] [address] [id number] [place] [address] Apr, [facility] [address] [id number] [place] [address] Apr, [facility] [address] [id number] [place] [address] 04 Apr, 2013 [facility] [address] [id number] [place] [address] 15 Mar, 2013 [facility] [address] [id number] [place] [address] 15 Mar, 2013 [facility] [address] [id number] [place] [address] 14 Mar, 2013 [facility] [id number] [place] [address] 14 Mar, 2013 [facility] [address] [id number] [place] [address] 11 Mar, 2013 [facility] [address] [id number] [place] [address] Mar, [facility] [address] [id number] [place] [address] Feb, [facility] [address] [facility] [id number] [place] [address] Feb, [facility] [address] [id number] [place] [address] Feb, [facility] [address] [id number] [place] [address] Jan, [facility] [address] [facility] [id number] [place] [address] Jan, [facility] [address] [id number] [place] [address] Jan, [facility] [address] [id number] [place] [address] Jan, [facility] [address] [id number] [place] [address] Jan, [facility] [address] [id number] [place] [address] Jan, [facility] [address] [id number] [place] [address] Dec, [facility] [address] [id number] [place] [address] Dec, [facility] [address] [id number] [place] [address] Dec, [facility] [address] [id number] [place] [address] Dec, [facility] [address] [facility] [id number] [place] [address] Dec, [facility] [address] [id number] [place] [address] Dec, [facility] [address] [id number] [place] [address] Nov, [facility] [address] [id number] [place] [address] Nov, [facility] [address] [facility] [id number] [place] [address] Nov, [facility] [address] [id number] [place] [address] Nov, [facility] [address] [id number] [place] [address] Nov, [facility] [address] [id number] [place] [address] Nov, [facility] [address] [facility] [id number] [place] [address] October, [facility] [address] [id number] [place] [address] October, [facility] [address] [id number] [place] [address] October, [facility] [address] [id number] [place] [address] October, [facility] [address] [id number] [place] [address] October, [facility] [address] [id number] [place] [address] Sep, [facility] [address] [id number] [place] [address] Sep, [facility] [address] [id number] [place] [address] Sep, [facility] [address] [id number] [place] [address] Sep, [facility] [address] [id number] [place] [address] Sep, [facility] [address] [id number] [place] [address] Aug, [facility] [address] [id number] [place] [address] Aug, [facility] [address] [id number] [place] [address] Aug, [facility] [address] [id number] [place] [address] Jul, [facility] [address] [id number] [place] [address] Jul, [facility] [address] [id number] [place] [address] Jul, [facility] [address] [id number] [place] [address] Jul, [facility] [address] [id number] [place] [address] Jul, [facility] [address] [id number] [place] [address] Jul, [facility] [id number] [place] [address] Jun, [facility] [id number] [place] [address] Apr, [facility] [address] [id number] [place] [address] Apr, [facility] [id number] [place] [address] Apr, [facility] [address] [id number] [place] [address] Apr, [facility] [address] [id number] [place] [address] Mar, [facility] [address] [id number] [place] [address] Mar, [facility] [id number] [place] [address] Mar, [facility] [address] [id number] [place] [address] Mar, [facility] [address] [id number] [place] [address] Mar, [facility] [id number] [place] [address] Feb, [facility] [id number] [place] [address] Jan, [facility] [id number] [place] [address] Jan, [facility] [id number] [place] [address] Jan, [facility] [id number] [place] [address] Dec, [facility] [id number] [place] [address] Nov, [facility] [id number] [place] [address] Nov, [facility] [id number] [place] [address] Nov, [facility] [id number] [place] [address] Nov, [facility] [id number] [place] [address] Nov, [facility] [id number] [place] [address] October, [facility] [id number] [place] [address] October, [facility] [id number] [place] [address] October, [facility] [id number] [place] [address] October, [facility] [id number] [place] [address] October, IMMUNIZATIONS No Known Immunizations SOCIAL HISTORY [...]
--- OUTSIDE RECORDS SUMMARY | 2020-01-25 07:35 | XMS REPORT ---
Author Author Velma Javed Doctor Organization [facility] Address Unknown Phone Unavailable Care Team Providers Care Electronic Imaging System Operator Name Role Phone Migration, Doctor Unavailable Unavailable PROBLEMS Type Condition ICD9-CM Code [id number] Code Onset Dates Condition S tatus SNOMED Code Problem Primary insomnia F51.01 Active 397 2004 Problem Hypercholesteremia E78.0 Active 1 5122766 Problem Corns L84 Active 174916097 Problem Arthritis M19.90 Active 0947850 Problem Hyperparathyroidism E21.3 Active 42209178 Problem 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 Active 44002111 Problem 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 Active 57770861 Problem BPV (benign positional vertigo), bilateral H81.13 Active 872098853 Problem Unspecified kidney failure N19 Act chip 22236883 Problem Myalgia M79.1 Active 44656854 Problem 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 Active 063266446 Problem Mood disorder F39 Active 068749 05 Problem Chronic kidney disease, stage 4 (severe) N18.4 Active 141349488 Problem Primary osteoarthritis of left knee M17.12 Active [id number] Problem Irritable bowel syndrome with both constipation and diarrh ea K58.2 Active 60260201 Problem Body mass index (BMI) of 40.0-44.9 in adult Z68.41 Active 841216421 ALLERGIES No Information ENCOUNTERS Encounter Location Date Diagnosis [facility] [id number] [place] [address] Aug, [facility] [address] [address] Jul, [facility] [address] [address] 06 Jul, 2019 Arthritis M19.90 [facility] [address] [id number] [place] [address] Jun, Knee pain, left M25.562 [place] [address] [address] May, Arthritis M19.90 [place] [address] [address] Apr, Well woman exam without gynecological ex am Z00.00 and Screening for breast cancer Z12.39 [place] [address] [address] Mar, Arthritis M19.90 [place] [address] [address] Mar, Arthritis M19.90 [place] [address] [address] Mar, [place] [address] [address] Mar, Arthritis M19.90 and Encounter for immun ization Z23 [address] [address] Feb, Arthritis M19.90 [place] [address] [address] Feb, [place] [address] [address] Feb, Other specified disorders of bone densit y and structure, unspecified site M85.80 [place] [address] [address] Jan, Arthritis M19.90 [place] [address] [address] Dec, Arthritis M19.90 [place] [address] [address] Nov, Inflammatory spondylopathy of sacral reg ion M46.98 [place] [address] [address] Nov, [place] [address] [address] 14 Nov, 2018 Labyrinthitis of left ear H83.02 [facility] [address] [address] 03 Nov, 2018 Arthritis M19.90 [facility] [address] [address] 15 Sep, 2018 Arthritis M19.90 [facility] [address] [address] 08 Sep, 2018 Renal insufficiency N28.9 and Unspecifie d kidney failure N19 [facility] [address] [address] 08 Sep, 2018 Renal insufficiency N28.9 and Unspecifie d kidney failure N19 [facility] [address] [address] 08 Sep, 2018 Arthritis M19.90 [facility] [address] [address] Aug, Exercise counseling Z71.82 [facility] [address] [address] Aug, [facility] [address] [address] Jul, Labyrinthitis of left ear H83.02 [facility] [address] [address] Jul, Labyrinthitis of left ear H83.02 [facility] [address] [address] Jul, Exercise counseling Z71.82 [facility] [address] [address] 18 Jul, 2018 [facility] [address] [address] 14 Jul, 2018 Arthritis M19.90 [facility] [address] [address] 13 Jul, 2018 Encounter for Medicare annual wellness e xam Z00.00 ; Chronic kidney disease, stage 4 (severe) N18.4 ; Body mass index (BMI) of 40.0-44.9 in adult Z68.41 ; Hyperparathyroidism E21.3 and BMI 40.0-44.9, adult Z68.41 [place] [address] [address] 13 Jul, 2018 Encounter for Medicare annual wellness e xam Z00.00 ; Chronic kidney disease, stage 4 (severe) N18.4 ; Hyperparathyroidism E21.3 ; Body mass index (BMI) of 40.0-44.9 in adult Z68.41 and Encounter for immunization Z23 [place] [address] [address] 11 Jul, 2018 Tail bone pain M53.[address] [address] Jun, Exercise counseling Z71.[address] [address] Jun, Labyrinthitis of left ear H83.[address] [address] Jun, Tail bone pain M53.3 ; Irritable bowel s yndrome with both constipation and diarrhea K58.2 and Dysfunction of left eustachian tube H69.82 [place] [address] [address] Jun, Exercise counseling Z71.82 [place] [address] [address] Jun, Arthritis M19.[address] [address] Jun, Irritable bowel syndrome with both const ipation and diarrhea K58.2 ; Tail bone pain M53.3 and Dysfunction of left eustachian tube H69.82 [place] [address] [address] Jun, Exercise counseling Z71.82 [facility] [address] [address] Jun, Exercise counseling Z71.82 [facility] [address] [address] Jun, Labyrinthitis of left ear H83.02 [facility] [address] [address] May, Exercise counseling Z71.82 [facility] [address] [address] May, Arthritis M19.90 [facility] [address] [address] May, Exercise counseling Z71.82 [place] [address] [address] May, Exercise counseling Z71.82 [facility] [address] [address] May, Labyrinthitis of left ear H83.02 [facility] [address] [address] May, Exercise counseling Z71.82 [facility] [address] [address] Apr, Arthritis M19.90 [facility] [address] [address] Apr, Exercise counseling Z71.82 [facility] [address] [address] Apr, Exercise counseling Z71.82 [facility] [address] [address] Apr, Primary osteoarthritis of left knee M17. 12 [facility] [address] [address] 08 Apr, 2018 Labyrinthitis of left ear H83.02 [place] [address] [address] Mar, Arthritis M19.90 [place] [address] [address] Mar, [place] [address] [address] Mar, Chronic kidney disease, stage 4 (severe) N18.4 [place] [address] [address] Mar, Chronic kidney disease, stage 4 (severe) N18.4 [place] [address] [address] Mar, Labyrinthitis of left ear H83.02 [place] [address] [address] Mar, Chronic kidney disease, stage 4 (severe) N18.4 ; Knee pain, left anterior M25.562 ; 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 and Encounter for immunization Z23 [place] [address] [address] Mar, Arthritis M19.90 [place] [address] [address] Feb, Labyrinthitis of left ear H83.02 [place] [address] [address] Feb, Arthritis M19.90 [place] [address] [address] Jan, Labyrinthitis of left ear H83.02 [place] [address] [address] Jan, Arthritis M19.90 [place] [address] [address] Dec, Labyrinthitis of left ear H83.02 [place] [address] [address] Nov, Arthritis M19.90 [place] [address] [address] Nov, Labyrinthitis of left ear H83.02 [place] [address] [address] Nov, BMI 40.0-44.9, adult Z68.41 ; Chronic ki dney disease, stage 4 (severe) N18.4 and Acute right-sided thoracic back pain M54.6 [place] [address] [address] October, Labyrinthitis of left ear H83.02 and Art hritis M19.90 [place] [address] [address] Sep, BPV (benign positional vertigo), bilater al H81.13 ; Dysfunction of left eustachian tube H69.82 and BMI 40.0-44.9, adult Z68.41 [place] [address] [address] Sep, Labyrinthitis of left ear H83.02 and Art hritis M19.90 [place] [address] [address] Sep, [place] [address] [address] Sep, [place] [address] [address] Sep, Chronic kidney disease, stage 4 (severe) N18.4 [place] [address] [address] Sep, Chronic kidney disease, stage 4 (severe) N18.4 [place] [address] [address] Aug, Labyrinthitis of left ear H83.02 and Art hritis M19.90 [place] [address] [address] Aug, [place] [address] [address] Jul, [place] [address] [address] Jul, Arthritis M19.90 and Labyrinthitis of le ft ear H83.02 [place] [address] [address] Jul, [place] [address] [address] Jun, [place] [address] [address] Jun, Arthritis M19.90 and Labyrinthitis of le ft ear H83.02 [place] [address] [address] Jun, Pre-op evaluation Z01.818 ; BMI 40.0-44. 9, adult Z68.41 and Encounter for immunization Z23 [place] [address] [address] May, Arthritis M19.90 and Labyrinthitis of le ft ear H83.02 [place] [address] [address] Apr, Labyrinthitis of left ear H83.02 [place] [address] [address] Apr, Arthritis M19.90 and Labyrinthitis of le ft ear H83.02 [place] [address] [address] Mar, Arthritis M19.90 and Labyrinthitis of le ft ear H83.02 [place] [address] [address] Mar, Chronic kidney disease, stage 4 (severe) N18.4 [facility] [address] [address] Feb, Arthritis M19.90 and Labyrinthitis of le ft ear H83.02 [place] [address] [address] Jan, Labyrinthitis of left ear H83.02 and Def iciency 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 [place] [address] [address] Dec, Arthritis M19.90 [place] [address] [address] Dec, BPV (benign positional vertigo), bilater al H81.13 [place] [address] [address] Dec, [place] [address] [address] Dec, [place] [address] [address] Dec, [place] [address] [address] Nov, Arthritis M19.90 and 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 [place] [address] [address] Nov, Arthritis M19.90 [place] [address] [address] Nov, Hyperparathyroidism E21.3 [place] [address] [address] October, [place] [address] [address] October, Hyperparathyroidism E21.3 [place] [address] [address] October, [place] [address] [address] October, Renal insufficiency N28.9 and Hyperparat hyroidism E21.3 [facility] [address] [address] October, [place] [address] [address] October, Renal insufficiency N28.9 and Hyperparat hyroidism E21.3 [facility] [address] [address] October, Arthritis M19.90 [address] [address] [address] Sep, [place] [address] [address] Sep, Lumbar neuritis M54.16 ; Thoracic absces s J86.9 and 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 [place] [address] [address] Sep, [place] [address] [address] Aug, Arthritis M19.90 [place] [address] [address] Aug, Hyperparathyroidism E21.3 [place] [address] [address] Aug, Hyperparathyroidism E21.3 [facility] [address] [address] Aug, Arthritis M19.90 [place] [address] [address] Jul, Mass of throat R22.1 [facility] [address] [address] Jul, [facility] [address] [address] 10 Jul, 2016 Arthritis M19.90 [facility] [id number] [place] [address] Jun, Arthritis M19.90 [facility] [id number] [place] [address] Jun, [facility] [id number] [place] [address] Jun, Renal insufficiency N28.9 and Parathyroi d 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 [facility] [id number] [place] [address] 05 Jun, 2016 Medicare welcome exam Z00.00 ; Encounter for immunization Z23 ; Arthritis M19.90 ; Medicare annual wellness visit, initial Z00.00 ; Medicare annual wellness visit, subsequent Z00.00 and 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 [place] [id number] [place] [address] 29 May, 2016 Renal insufficiency N28.9 and Parathyroi d 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 [facility] [id number] [place] [address] May, Renal insufficiency N28.9 [place] [id number] [place] [address] 16 May, 2016 Renal insufficiency N28.9 [facility] [id number] [place] [address] 14 May, 2016 [facility] [id number] [place] [address] Apr, [facility] [address] [address] Apr, [facility] [address] [address] 14 Apr, 2016 Mass of throat R22.1 [facility] [address] [address] 10 Apr, 2016 [facility] [address] [address] 10 Apr, 2016 Mass of throat R22.1 [facility] [address] [address] 04 Apr, 2016 Mass of throat R22.1 [facility] [address] [address] Mar, [facility] [address] [address] Mar, [facility] [address] [address] Mar, [facility] [address] [address] Mar, 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 for immunization Z23 [facility] [address] [address] Mar, [facility] [address] [address] Mar, [facility] [address] [address] 21 Feb, 2016 Renal insufficiency N28.9 and Hyperparat hyroidism E21.3 [facility] [address] [address] 19 Feb, 2016 [facility] [address] [address] 15 Feb, 2016 Renal insufficiency N28.9 and Hyperparat hyroidism E21.3 [facility] [address] [address] 14 Feb, 2016 [facility] [address] [address] 12 Feb, 2016 [facility] [address] [address] 09 Feb, 2016 [facility] [address] [address] Jan, [place] [address] [address] Jan, Arthritis M19.90 ; Lumbago with sciatica , right side M54.41 and Other chronic pain G89.29 [place] [address] [address] Jan, [place] [address] [address] Dec, Arthritis M19.90 ; Lumbago with sciatica , right side M54.41 and Other chronic pain G89.29 [place] [address] [address] Nov, Deficiency of other specified B group vi tamins E53.8 ; Primary insomnia F51.01 ; Mood disorder F39 and Lumbago with sciatica, right side M54.41 [place] [address] [address] Nov, Hyperparathyroidism E21.[address] [address] Nov, Unspecified kidney failure N19 and Hyper parathyroidism E21.[address] [address] October, Hyperparathyroidism E21.3 [place] [address] [address] October, [address] [address] October, Hyperparathyroidism E21.3 [place] [address] [address] October, Hyperparathyroidism E21.[address] [address] Sep, Hyperparathyroidism E21.3 ; Hypercholest erolemia E78.0 and Arthritis M19.90 [place] [address] [address] Aug, [facility] [address] [address] Aug, Deficiency of other specified B group vi tamins E53.8 [facility] [address] [address] Aug, [facility] [address] [address] Jul, Urinary frequency R35.0 [facility] [address] [address] Jul, Urinary frequency R35.0 [facility] [address] [address] Jul, [facility] [address] [address] Jul, [facility] [address] [address] Jun, Pain in left knee M25.562 [facility] [address] [address] Jun, [facility] [address] [address] May, Swelling of left knee joint M25.462 [facility] [address] [address] 16 May, 2015 [facility] [address] [address] May, [facility] [address] [address] May, [facility] [address] [address] Apr, Renal insufficiency N28.9 and Chronic ki dney disease, stage 4 (severe) N18.4 [facility] [address] [address] Apr, Unspecified kidney failure N19 [facility] [id number] [place] [address] Apr, Unspecified kidney failure N19 [facility] [address] [address] Apr, [facility] [address] [address] Apr, Hyperparathyroidism, unspecified 252.00 [facility] [address] [address] Apr, [facility] [address] [address] Mar, [facility] [address] [address] Mar, [facility] [address] [address] Mar, Hyperparathyroidism, unspecified 252.00 [facility] [address] [address] Feb, [facility] [address] [address] Feb, Otalgia 388.70 [facility] [address] [address] Feb, [facility] [address] [address] Feb, [facility] [address] [address] Jan, [facility] [address] [address] Jan, Hyperparathyroidism, unspecified 252.00 [facility] [address] [address] Jan, [facility] [address] [address] Jan, Other B-complex deficiencies 266.2 and H yperparathyroidism, unspecified 252.00 [facility] [id number] [place] [address] Jan, [facility] [id number] [place] [address] Jan, [facility] [id number] [place] [address] Jan, [facility] [id number] [place] [address] Dec, [facility] [id number] [place] [address] Dec, [facility] [id number] [place] [address] Dec, [facility] [id number] [place] [address] Nov, Routine check-up V70.0 and Pre-op exam V 72.84 [facility] [id number] [place] [address] Nov, [facility] [id number] [place] [address] Nov, [facility] [id number] [place] [address] October, [facility] [id number] [place] [address] October, Other B-complex deficiencies 266.2 [facility] [id number] [place] [address] October, [facility] [id number] [place] [address] Sep, [facility] [id number] [place] [address] Sep, [facility] [id number] [place] [address] Aug, [facility] [id number] [place] [address] Aug, 2014 [facility] [address] [facility] [id number] [place] [address] Aug, 2014 [facility] [address] [id number] [place] [address] Aug, 2014 [facility] [address] [id number] [place] [address] Aug, 2014 [facility] [address] [id number] [place] [address] Aug, 2014 [facility] [address] [facility] [id number] [facility] [place] [address] Jul, 2014 [facility] [address] [id number] [place] [address] Jul, 2014 [facility] [address] [id number] [place] [address] Jul, 2014 [facility] [address] [id number] [place] [address] Jul, 2014 [facility] [address] [id number] [place] [address] Jul, 2014 [facility] [address] [id number] [place] [address] Jul, 2014 [facility] [address] [id number] [place] [address] Jul, 2014 [facility] [address] [id number] [place] [address] Jul, 2014 [facility] [address] [id number] [place] [address] Jul, 2014 [facility] [address] [id number] [place] [address] Jul, 2014 [facility] [address] [id number] [place] [address] Jul, 2014 [facility] [address] [id number] [place] [address] Jul, [facility] [address] [id number] [place] [address] Jul, [facility] [address] [id number] [place] [address] Jul, [facility] [address] [id number] [place] [address] Jun, [facility] [address] [id number] [place] [address] Jun, [facility] [address] [id number] [place] [address] Jun, [facility] [address] [id number] [place] [address] Jun, [facility] [address] [id number] [place] [address] Jun, [facility] [address] [id number] [place] [address] Jun, [facility] [address] [id number] [place] [address] Jun, [facility] [address] [id number] [place] [address] Jun, [facility] [address] [id number] [place] [address] Jun, [facility] [address] [id number] [place] [address] Jun, [facility] [address] [id number] [place] [address] Jun, [facility] [address] [id number] [place] [address] Jun, [facility] [address] [id number] [place] [address] Jun, [facility] [address] [id number] [place] [address] Jun, [facility] [address] [id number] [place] [address] 15 May, 2014 [facility] [address] [facility] [id number] [place] [address] May, [facility] [address] [facility] [id number] [place] [address] May, [facility] [address] [id number] [place] [address] May, [facility] [address] [id number] [place] [address] Apr, [facility] [address] [facility] [id number] [place] [address] Apr, [facility] [address] [id number] [place] [address] Apr, [facility] [address] [id number] [place] [address] Apr, [facility] [address] [id number] [place] [address] Apr, [facility] [address] [id number] [place] [address] Apr, [facility] [address] [id number] [place] [address] Mar, [facility] [address] [id number] [place] [address] Mar, [facility] [address] [id number] [place] [address] Mar, [facility] [address] [facility] [id number] [place] [address] Mar, [facility] [address] [id number] [place] [address] 15 Mar, 2014 [facility] [address] [id number] [place] [address] 15 Mar, 2014 [facility] [address] [id number] [place] [address] Mar, [facility] [address] [facility] [id number] [place] [address] 13 Mar, 2013 [facility] [address] [facility] [id number] [place] [address] Mar, 2013 [facility] [address] [facility] [id number] [place] [address] Mar, 2013 [facility] [address] [id number] [place] [address] Mar, 2013 [facility] [address] [id number] [place] [address] 07 Mar, 2013 [facility] [address] [facility] [id number] [place] [address] 06 Mar, 2013 [facility] [address] [id number] [place] [address] 26 Feb, 2013 [facility] [address] [id number] [place] [address] 26 Feb, 2013 [facility] [address] [id number] [place] [address] 23 Feb, 2013 [facility] [address] [id number] [place] [address] 23 Feb, 2013 [facility] [address] [id number] [place] [address] 19 Feb, 2013 [facility] [address] [id number] [place] [address] 19 Feb, 2013 [facility] [address] [id number] [place] [address] 13 Feb, 2013 [facility] [address] [facility] [id number] [place] [address] 13 Feb, 2013 [facility] [address] [id number] [place] [address] 12 Feb, 2013 [facility] [address] [id number] [place] [address] 12 Feb, 2013 [facility] [address] [id number] [place] [address] Jan, [facility] [address] [facility] [id number] [place] [address] Jan, [facility] [address] [facility] [id number] [place] [address] Dec, [facility] [address] [facility] [id number] [place] [address] Dec, [facility] [address] [id number] [place] [address] Dec, [facility] [address] [facility] [id number] [place] [address] Dec, [facility] [address] [id number] [place] [address] Dec, [facility] [address] [id number] [place] [address] Dec, [facility] [address] [id number] [place] [address] Nov, [facility] [address] [id number] [place] [address] Nov, [facility] [address] [id number] [place] [address] Nov, [facility] [address] [id number] [place] [address] Nov, [facility] [address] [id number] [place] [address] October, [facility] [address] [id number] [place] [address] October, [facility] [address] [id number] [place] [address] October, [facility] [address] [id number] [place] [address] October, [facility] [address] [id number] [place] [address] October, [facility] [address] [id number] [place] [address] October, [facility] [address] [facility] [id number] [facility], [place] [address] October, [facility] [address] [facility] [id number] [facility], [place] [address] October, [facility] [address] [id number] [facility], [place] [address] October, [facility] [address] [facility] [id number] [facility], [place] [address] October, [facility] [address] [facility] [id number] [facility], [place] [address] October, [facility] [address] [id number] [place] [address] October, [facility] [address] [id number] [place] [address] October, [facility] [address] [id number] [place] [address] October, [facility] [address] [facility] [id number] [facility], [place] [address] October, [facility] [address] [id number] [place] [address] October, [facility] [address] [id number] [place] [address] Sep, [facility] [address] [id number] [facility], [place] [address] Sep, [facility] [address] [facility] [id number] [facility], [place] [address] Sep, [facility] [address] [id number] [place] [address] Sep, [facility] [address] [facility] [id number] [facility], [place] [address] Sep, [facility] [address] [id number] [facility], [place] [address] Sep, [facility] [address] [id number] [place] [address] 12 Aug, 2013 [facility] [address] [id number] [place] [address] Aug, [facility] [address] [id number] [place] [address] Aug, [facility] [address] [id number] [place] [address] Aug, [facility] [address] [id number] [place] [address] Aug, [facility] [address] [id number] [place] [address] Aug, [facility] [address] [id number] [place] [address] Jul, [facility] [address] [id number] [place] [address] Jul, [facility] [address] [id number] [place] [address] Jul, [facility] [address] [id number] [place] [address] Jul, [facility] [address] [id number] [place] [address] Jun, [facility] [address] [id number] [place] [address] Jun, [facility] [address] [id number] [place] [address] May, [facility] [address] [id number] [place] [address] May, [facility] [address] [id number] [place] [address] May, [facility] [address] [id number] [place] [address] May, [facility] [address] [id number] [place] [address] May, [facility] [address] [id number] [place] [address] Apr, [facility] [address] [id number] [place] [address] Apr, [facility] [address] [id number] [place] [address] Apr, [facility] [address] [id number] [place] [address] Apr, [facility] [address] [id number] [place] [address] Apr, [facility] [address] [id number] [place] [address] Apr, [facility] [address] [id number] [place] [address] 15 Mar, 2013 [facility] [address] [id number] [place] [address] 15 Mar, 2013 [facility] [address] [id number] [place] [address] 14 Mar, 2013 [facility] [address] [id number] [place] [address] 14 Mar, 2013 [facility] [address] [id number] [place] [address] Mar, [facility] [address] [id number] [place] [address] Mar, [facility] [address] [id number] [place] [address] 23 Feb, 2013 [facility] [address] [id number] [place] [address] Feb, [facility] [address] [id number] [place] [address] Feb, [facility] [address] [id number] [place] [address] Jan, [facility] [address] [id number] [place] [address] Jan, [facility] [address] [id number] [place] [address] Jan, [facility] [address] [id number] [place] [address] Jan, [facility] [address] [id number] [place] [address] Jan, [facility] [address] [id number] [place] [address] Jan, [facility] [address] [facility] [id number] [place] [address] Dec, [facility] [address] [id number] [place] [address] Dec, [facility] [address] [id number] [place] [address] Dec, [facility] [address] [id number] [place] [address] Dec, [facility] [address] [id number] [place] [address] Dec, [facility] [address] [id number] [place] [address] Dec, [facility] [address] [id number] [place] [address] Nov, [facility] [address] [id number] [place] [address] Nov, [facility] [address] [id number] [place] [address] Nov, [facility] [address] [id number] [place] [address] Nov, [facility] [address] [id number] [place] [address] Nov, [facility] [address] [id number] [place] [address] Nov, [facility] [address] [id number] [place] [address] October, [facility] [address] [id number] [place] [address] October, [facility] [address] [id number] [place] [address] October, [facility] [address] [id number] [place] [address] October, [facility] [address] [id number] [place] [address] October, [facility] [address] [id number] [place] [address] Sep, [facility] [address] [id number] [place] [address] Sep, [facility] [address] [id number] [place] [address] Sep, [facility] [address] [id number] [place] [address] Sep, [facility] [address] [id number] [place] [address] Sep, [facility] [address] [id number] [place] [address] Aug, [facility] [address] [id number] [place] [address] Aug, [facility] [address] [id number] [place] [address] Aug, [facility] [address] [id number] [place] [address] Jul, [facility] [address] [id number] [place] [address] Jul, [facility] [address] [id number] [place] [address] Jul, [facility] [address] [id number] [place] [address] 08 Jul, 2012 [facility] [address] [id number] [place] [address] Jul, [facility] [address] [id number] [place] [address] Jul, [facility] [address] [id number] [place] [address] Jun, [facility] [address] [id number] [place] [address] Apr, [facility] [address] [id number] [place] [address] Apr, [facility] [address] [id number] [place] [address] Apr, [facility] [address] [id number] [place] [address] Apr, [facility] [id number] [place] [address] Mar, [facility] [address] [id number] [place] [address] Mar, [facility] [address] [id number] [place] [address] Mar, [facility] [address] [id number] [place] [address] Mar, [facility] [address] [id number] [place] [address] Mar, [facility] [address] [id number] [place] [address] Feb, [facility] [address] [id number] [place] [address] Jan, [facility] [address] [id number] [place] [address] Jan, [facility] [address] [id number] [place] [address] Jan, [facility] [address] [id number] [place] [address] Dec, [facility] [address] [id number] [place] [address] Nov, [facility] [address] [id number] [place] [address] Nov, [facility] [id number] [place] [address] Nov, [facility] [id number] [place] [address] Nov, [facility] [address] [id number] [place] [address] Nov, [facility] [address] [id number] [place] [address] October, [facility] [id number] [place] [address] October, [facility] [id number] [place] [address] October, [facility] [id number] [place] [address] October, [facility] [id number] [place] [address] October, IMMUNIZATIONS No Known Immunizations SOCIAL HISTORY Never Assessed REASON FOR VISIT PLAN OF CARE VITAL SIGNS MEDICATIONS Unknown Medications RESULTS No Results PROCEDURES Procedure Date Ordered Result Body Site THER/PROPH/DIAG INJ, SC/IM Aug 01, 2013 INJ VIT B-12 CYNOCOBLMN TO 1000 MCG Aug 01, 2013 INSTRUCTIONS MEDICATIONS ADMINISTERED No Known Medications MEDICAL (GENERAL) HISTORY Type Description Date Medical History hypertension Medical History acid reflux Medical History osteoporosis Medical History Arthritis Medical History fibromyalgia Surgical History cholecystectomy Surgical History gastric bypass s Surgical History orthopedic surgery-left and right foot Surgical History arthroscopic knee surgery-left Surgical History Left knee meniscus repair 2009 Surgical History half of thyroid removed Jun 2016 Hospitalization History Hospitalization for surgery only
--- OUTSIDE RECORDS SUMMARY | 2020-01-25 07:36 | XMS REPORT ---
Author Author Velma Bull Organization [facility] Address [address] [place] [address] Care Team Providers Care Emergency Medicine Nurse Practitioner Name Role Phone CAITLIN Bull Unavailable PROBLEMS Type Condition ICD9-CM Code NVH95-OA Code Onset Dates Condition S tatus SNOMED Code Problem Primary insomnia F51.01 Active 397 2004 Problem Hypercholesteremia E78.0 Active 1 5062048 Problem Corns L84 Active 559705638 Problem Arthritis M19.90 Active 4209474 Problem Hyperparathyroidism E21.3 Active 03165228 Problem 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 Active 00837857 Problem 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 Active 21210557 Problem BPV (benign positional vertigo), bilateral H81.13 Active 836030429 Problem Unspecified kidney failure N19 Act chip 76671299 Problem Myalgia M79.1 Active 47130037 Problem 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 Active 922860504 Problem Mood disorder F39 Active 261206 05 Problem Chronic kidney disease, stage 4 (severe) N18.4 Active 883199959 Problem Primary osteoarthritis of left knee M17.12 Active 329162821213525 Problem Irritable bowel syndrome with both constipation and diarrh ea K58.2 Active 88198911 Problem Body mass index (BMI) of 40.0-44.9 in adult Z68.41 Active 554213069 ALLERGIES No Information ENCOUNTERS Encounter Location Date Diagnosis [facility] [address] [id number] [place] [address] Jul, Arthritis M19.90 [facility] [address] [facility] [id number] [place] [address] Jun, Knee pain, left M25.562 [facility] [address] [id number] [place] [address] May, Arthritis M19.90 [place] [address] [address] Apr, Well woman exam without gynecological ex am Z00.00 and Screening for breast cancer Z12.39 [place] [address] [address] Mar, Arthritis M19.90 [place] [address] [address] Mar, Arthritis M19.90 [place] [address] [address] Mar, [place] [address] [address] Mar, Arthritis M19.90 and Encounter for immun ization Z23 [place] [address] [address] Feb, Arthritis M19.90 [place] [address] [address] Feb, [place] [address] [address] Feb, Other specified disorders of bone densit y and structure, unspecified site M85.80 [place] [address] [address] Jan, Arthritis M19.90 [place] [address] [address] Dec, Arthritis M19.90 [place] [address] [address] Nov, Inflammatory spondylopathy of sacral reg ion M46.98 [place] [address] [address] Nov, [place] [address] [address] 14 Nov, 2018 Labyrinthitis of left ear H83.02 [place] [address] [address] 03 Nov, 2018 Arthritis M19.90 [place] [address] [address] 15 Sep, 2018 Arthritis M19.90 [place] [address] [address] 08 Sep, 2018 Renal insufficiency N28.9 and Unspecifie d kidney failure N19 [place] [address] [address] 08 Sep, 2018 Renal insufficiency N28.9 and Unspecifie d kidney failure N19 [place] [address] [address] Sep, Arthritis M19.90 [place] [address] [address] Aug, Exercise counseling Z71.82 [place] [address] [address] Aug, [place] [address] [address] Jul, Labyrinthitis of left ear H83.02 [place] [address] [address] Jul, Labyrinthitis of left ear H83.02 [place] [address] [address] Jul, Exercise counseling Z71.82 [place] [address] [address] 18 Jul, 2018 [place] [address] [address] 14 Jul, 2018 Arthritis M19.90 [place] [address] [address] 13 Jul, 2018 Encounter for Medicare annual wellness e xam Z00.00 ; Chronic kidney disease, stage 4 (severe) N18.4 ; Body mass index (BMI) of 40.0-44.9 in adult Z68.41 ; Hyperparathyroidism E21.3 and BMI 40.0-44.9, adult Z68.41 [place] [address] [address] 13 Jul, 2018 Encounter for Medicare annual wellness e xam Z00.00 ; Chronic kidney disease, stage 4 (severe) N18.4 ; Hyperparathyroidism E21.3 ; Body mass index (BMI) of 40.0-44.9 in adult Z68.41 and Encounter for immunization Z23 [address] [address] 11 Jul, 2018 Tail bone pain M53.[address] [address] 29 Jun, 2018 Exercise counseling Z71.[address] [address] Jun, Labyrinthitis of left ear H83.[address] [address] Jun, Tail bone pain M53.3 ; Irritable bowel s yndrome with both constipation and diarrhea K58.2 and Dysfunction of left eustachian tube H69.[address] [address] Jun, Exercise counseling Z71.[address] [address] Jun, Arthritis M19.[address] [address] 16 Jun, 2018 Irritable bowel syndrome with both const ipation and diarrhea K58.2 ; Tail bone pain M53.3 and Dysfunction of left eustachian tube H69.82 [place] [address] [address] Jun, Exercise counseling Z71.82 [place] [address] [address] Jun, Exercise counseling Z71.82 [facility] [address] [address] Jun, Labyrinthitis of left ear H83.02 [facility] [address] [address] May, Exercise counseling Z71.82 [facility] [address] [address] May, Arthritis M19.90 [facility] [address] [address] May, Exercise counseling Z71.82 [place] [address] [address] May, Exercise counseling Z71.82 [place] [address] [address] May, Labyrinthitis of left ear H83.02 [facility] [address] [address] May, Exercise counseling Z71.82 [place] [address] [address] Apr, Arthritis M19.90 [facility] [address] [address] Apr, Exercise counseling Z71.82 [facility] [address] [address] Apr, Exercise counseling Z71.82 [facility] [address] [address] Apr, Primary osteoarthritis of left knee M17. 12 [place] [address] [address] 08 Apr, 2018 Labyrinthitis of left ear H83.02 [facility] [address] [address] Mar, Arthritis M19.90 [place] [address] [address] Mar, [place] [address] [address] Mar, Chronic kidney disease, stage 4 (severe) N18.4 [place] [address] [address] Mar, Chronic kidney disease, stage 4 (severe) N18.4 [place] [address] [address] Mar, Labyrinthitis of left ear H83.02 [place] [address] [address] Mar, Chronic kidney disease, stage 4 (severe) N18.4 ; Knee pain, left anterior M25.562 ; 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 and Encounter for immunization Z23 [place] [address] [address] Mar, Arthritis M19.90 [place] [address] [address] Feb, Labyrinthitis of left ear H83.02 [place] [address] [address] Feb, Arthritis M19.90 [place] [address] [address] Jan, Labyrinthitis of left ear H83.02 [place] [address] [address] Jan, Arthritis M19.90 [place] [address] [address] Dec, Labyrinthitis of left ear H83.02 [place] [address] [address] Nov, Arthritis M19.90 [place] [address] [address] Nov, Labyrinthitis of left ear H83.02 [place] [address] [address] Nov, BMI 40.0-44.9, adult Z68.41 ; Chronic ki dney disease, stage 4 (severe) N18.4 and Acute right-sided thoracic back pain M54.[address] [address] October, Labyrinthitis of left ear H83.02 and Art hritis M19.[address] [address] Sep, BPV (benign positional vertigo), bilater al H81.13 ; Dysfunction of left eustachian tube H69.82 and BMI 40.0-44.9, adult Z68.[address] [address] Sep, Labyrinthitis of left ear H83.02 and Art hritis M19.[address] [address] Sep, [address] [address] Sep, [address] [address] Sep, Chronic kidney disease, stage 4 (severe) N18.[address] [address] Sep, Chronic kidney disease, stage 4 (severe) N18.[address] [address] Aug, Labyrinthitis of left ear H83.02 and Art hritis M19.[address] [address] Aug, [place] [address] [address] Jul, [place] [address] [address] Jul, Arthritis M19.90 and Labyrinthitis of le ft ear H83.02 [place] [address] [address] Jul, [place] [address] [address] Jun, [place] [address] [address] Jun, Arthritis M19.90 and Labyrinthitis of le ft ear H83.02 [place] [address] [address] Jun, Pre-op evaluation Z01.818 ; BMI 40.0-44. 9, adult Z68.41 and Encounter for immunization Z23 [place] [address] [address] May, Arthritis M19.90 and Labyrinthitis of le ft ear H83.02 [place] [address] [address] Apr, Labyrinthitis of left ear H83.02 [place] [address] [address] Apr, Arthritis M19.90 and Labyrinthitis of le ft ear H83.02 [place] [address] [address] Mar, Arthritis M19.90 and Labyrinthitis of le ft ear H83.02 [place] [address] [address] 05 Mar, 2017 Chronic kidney disease, stage 4 (severe) N18.4 [place] [address] [address] Feb, Arthritis M19.90 and Labyrinthitis of le ft ear H83.02 [place] [address] [address] Jan, Labyrinthitis of left ear H83.02 and Def iciency 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 [place] [address] [address] Dec, Arthritis M19.90 [place] [address] [address] Dec, BPV (benign positional vertigo), bilnila al H81.13 [place] [address] [address] Dec, [place] [address] [address] Dec, [place] [address] [address] Dec, [place] [address] [address] Nov, Arthritis M19.90 and 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 [place] [address] [address] Nov, Arthritis M19.90 [place] [address] [address] Nov, Hyperparathyroidism E21.3 [place] [address] [address] October, [place] [address] [address] October, Hyperparathyroidism E21.3 [place] [address] [address] October, [place] [address] [address] October, Renal insufficiency N28.9 and Hyperparat hyroidism E21.3 [facility] [address] [address] October, [facility] [address] [address] October, Renal insufficiency N28.9 and Hyperparat hyroidism E21.3 [facility] [address] [address] October, Arthritis M19.90 [facility] [address] [address] Sep, [place] [address] [address] Sep, Lumbar neuritis M54.16 ; Thoracic absces s J86.9 and 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 [place] [address] [address] Sep, [facility] [address] [address] Aug, Arthritis M19.90 [facility] [address] [address] Aug, Hyperparathyroidism E21.3 [place] [address] [address] Aug, Hyperparathyroidism E21.3 [facility] [address] [address] Aug, Arthritis M19.90 [facility] [address] [address] Jul, Mass of throat R22.1 [place] [address] [address] Jul, [facility] [address] [address] Jul, Arthritis M19.90 [facility] [address] [address] Jun, Arthritis M19.90 [facility] [address] [address] Jun, [place] [address] [address] Jun, Renal insufficiency N28.9 and Parathyroi d 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 [place] [address] [address] 05 Jun, 2016 Medicare welcome exam Z00.00 ; Encounter for immunization Z23 ; Arthritis M19.90 ; Medicare annual wellness visit, initial Z00.00 ; Medicare annual wellness visit, subsequent Z00.00 and 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 [place] [address] [address] May, Renal insufficiency N28.9 and Parathyroi d 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 [place] [address] [address] May, Renal insufficiency N28.9 [place] [address] [address] May, Renal insufficiency N28.9 [place] [address] [address] May, [place] [address] [address] Apr, [place] [address] [address] Apr, [place] [address] [address] 14 Apr, 2016 Mass of throat R22.1 [place] [address] [address] 10 Apr, 2016 [place] [address] [address] 10 Apr, 2016 Mass of throat R22.1 [place] [address] [address] Apr, Mass of throat R22.1 [facility] [address] [address] Mar, [facility] [address] [address] Mar, [place] [address] [address] Mar, [place] [address] [address] Mar, 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 for immunization Z23 [place] [address] [address] Mar, [place] [address] [address] Mar, [place] [address] [address] Feb, Renal insufficiency N28.9 and Hyperparat hyroidism E21.3 [place] [address] [address] 19 Feb, 2016 [place] [address] [address] 15 Feb, 2016 Renal insufficiency N28.9 and Hyperparat hyroidism E21.3 [place] [address] [address] 14 Feb, 2016 [place] [address] [address] 12 Feb, 2016 [place] [address] [address] 09 Feb, 2016 [facility] [address] [address] Jan, [place] [address] [address] Jan, Arthritis M19.90 ; Lumbago with sciatica , right side M54.41 and Other chronic pain G89.29 [place] [address] [address] Jan, [place] [address] [address] Dec, Arthritis M19.90 ; Lumbago with sciatica , right side M54.41 and Other chronic pain G89.29 [place] [address] [address] Nov, Deficiency of other specified B group vi tamins E53.8 ; Primary insomnia F51.01 ; Mood disorder F39 and Lumbago with sciatica, right side M54.41 [place] [address] [address] Nov, Hyperparathyroidism E21.3 [place] [address] [address] Nov, Unspecified kidney failure N19 and Hyper parathyroidism E21.3 [place] [address] [address] October, Hyperparathyroidism E21.3 [place] [address] [address] October, [place] [address] [address] October, Hyperparathyroidism E21.3 [place] [address] [address] October, Hyperparathyroidism E21.3 [place] [address] [address] Sep, Hyperparathyroidism E21.3 ; Hypercholest erolemia E78.0 and Arthritis M19.90 [place] [address] [address] Aug, [place] [address] [address] Aug, Deficiency of other specified B group vi tamins E53.8 [facility] [address] [address] Aug, [facility] [address] [address] Jul, Urinary frequency R35.0 [facility] [address] [address] Jul, Urinary frequency R35.0 [facility] [address] [address] Jul, [facility] [address] [address] Jul, [facility] [address] [address] Jun, Pain in left knee M25.562 [facility] [address] [address] Jun, [facility] [address] [address] May, Swelling of left knee joint M25.462 [facility] [address] [address] May, [facility] [address] [address] May, [facility] [address] [address] May, [facility] [address] [address] Apr, Renal insufficiency N28.9 and Chronic ki dney disease, stage 4 (severe) N18.4 [facility] [address] [address] Apr, Unspecified kidney failure N19 [facility] [address] [address] Apr, Unspecified kidney failure N19 [facility] [address] [place] [id number] [place] [address] Apr, [facility] [address] [address] Apr, Hyperparathyroidism, unspecified 252.00 [facility] [address] [address] Apr, [facility] [address] [address] Mar, [facility] [address] [address] Mar, [facility] [address] [address] Mar, Hyperparathyroidism, unspecified 252.00 [facility] [address] [address] Feb, [facility] [address] [address] Feb, Otalgia 388.70 [facility] [address] [address] Feb, [facility] [address] [address] Feb, [facility] [address] [address] Jan, [facility] [address] [address] Jan, Hyperparathyroidism, unspecified 252.00 [facility] [address] [address] Jan, [facility] [address] [address] Jan, Other B-complex deficiencies 266.2 and H yperparathyroidism, unspecified 252.00 [facility] [address] [address] Jan, [facility] [address] [facility] [id number] [place] [address] Jan, [facility] [address] [id number] [place] [address] Jan, [facility] [address] [facility] [id number] [place] [address] Dec, [facility] [id number] [place] [address] Dec, [facility] [address] [facility] [id number] [place] [address] Dec, [facility] [id number] [place] [address] Nov, Routine check-up V70.0 and Pre-op exam V 72.84 [facility] [id number] [place] [address] Nov, [facility] [id number] [place] [address] Nov, [facility] [id number] [place] [address] October, [facility] [id number] [place] [address] October, Other B-complex deficiencies 266.2 [facility] [id number] [place] [address] October, [facility] [id number] [place] [address] Sep, [facility] [id number] [place] [address] Sep, [facility] [id number] [place] [address] Aug, [facility] [id number] [place] [address] Aug, [facility] [id number] [place] [address] Aug, 2014 [facility] [address] [facility] [id number] [place] [address] Aug, 2014 [facility] [address] [id number] [place] [address] Aug, 2014 [facility] [address] [id number] [place] [address] Aug, 2014 [facility] [address] [id number] [place] [address] Jul, 2014 [facility] [address] [facility] [id number] [facility] [place] [address] Jul, 2014 [facility] [address] [id number] [place] [address] Jul, 2014 [facility] [address] [id number] [place] [address] Jul, 2014 [facility] [address] [id number] [place] [address] Jul, 2014 [facility] [address] [id number] [place] [address] Jul, 2014 [facility] [address] [id number] [place] [address] Jul, 2014 [facility] [address] [id number] [place] [address] Jul, 2014 [facility] [address] [id number] [place] [address] Jul, 2014 [facility] [address] [id number] [place] [address] Jul, 2014 [facility] [address] [id number] [place] [address] Jul, 2014 [facility] [address] [id number] [place] [address] Jul, 2014 [facility] [address] [id number] [place] [address] Jul, [facility] [address] [id number] [place] [address] Jul, [facility] [address] [id number] [place] [address] Jun, [facility] [address] [id number] [place] [address] Jun, [facility] [address] [id number] [place] [address] Jun, [facility] [address] [id number] [place] [address] Jun, [facility] [address] [id number] [place] [address] Jun, [facility] [address] [id number] [place] [address] Jun, [facility] [address] [id number] [place] [address] Jun, [facility] [address] [id number] [place] [address] Jun, [facility] [address] [id number] [place] [address] Jun, [facility] [address] [id number] [place] [address] Jun, [facility] [address] [id number] [place] [address] Jun, [facility] [address] [id number] [place] [address] Jun, [facility] [address] [id number] [place] [address] Jun, [facility] [address] [id number] [place] [address] Jun, [facility] [address] [id number] [place] [address] May, [facility] [address] [id number] [place] [address] May, [facility] [address] [facility] [id number] [place] [address] May, [facility] [address] [id number] [place] [address] May, [facility] [address] [id number] [place] [address] Apr, [facility] [address] [id number] [place] [address] Apr, [facility] [address] [id number] [place] [address] Apr, [facility] [address] [id number] [place] [address] Apr, [facility] [address] [id number] [place] [address] Apr, [facility] [address] [id number] [place] [address] Apr, [facility] [address] [id number] [place] [address] Mar, [facility] [address] [id number] [place] [address] Mar, [facility] [address] [id number] [place] [address] Mar, [facility] [address] [id number] [place] [address] Mar, [facility] [address] [id number] [place] [address] Mar, [facility] [address] [id number] [place] [address] 15 Mar, 2014 [facility] [address] [id number] [place] [address] Mar, [facility] [address] [id number] [place] [address] Mar, [facility] [address] [id number] [place] [address] 07 Mar, 2013 [facility] [facility] [address] [facility] [id number] [place] [address] 07 Mar, 2013 [facility] [address] [facility] [id number] [place] [address] Mar, 2013 [facility] [address] [id number] [place] [address] 07 Mar, 2013 [facility] [address] [facility] [id number] [place] [address] 06 Mar, 2013 [facility] [address] [facility] [id number] [place] [address] 26 Feb, 2013 [facility] [address] [id number] [place] [address] 26 Feb, 2013 [facility] [address] [id number] [place] [address] 23 Feb, 2013 [facility] [address] [id number] [place] [address] 23 Feb, 2013 [facility] [address] [facility] [id number] [place] [address] 19 Feb, 2013 [facility] [address] [id number] [place] [address] 19 Feb, 2013 [facility] [address] [id number] [place] [address] 13 Feb, 2013 [facility] [address] [id number] [place] [address] 13 Feb, 2013 [facility] [address] [facility] [id number] [place] [address] 12 Feb, 2013 [facility] [address] [id number] [place] [address] 12 Feb, 2014 [facility] [address] [id number] [place] [address] 15 Jan, 2014 [facility] [address] [id number] [place] [address] Jan, [facility] [address] [facility] [id number] [place] [address] Dec, [facility] [address] [facility] [id number] [place] [address] Dec, [facility] [address] [facility] [id number] [place] [address] Dec, [facility] [address] [id number] [place] [address] Dec, [facility] [address] [facility] [id number] [place] [address] Dec, [facility] [address] [id number] [place] [address] Dec, [facility] [address] [id number] [place] [address] Nov, [facility] [address] [id number] [place] [address] Nov, [facility] [address] [id number] [place] [address] Nov, [facility] [address] [id number] [place] [address] Nov, [facility] [address] [id number] [place] [address] October, [facility] [address] [id number] [place] [address] October, [facility] [address] [id number] [place] [address] October, [facility] [address] [id number] [place] [address] October, [facility] [address] [id number] [place] [address] October, [facility] [address] [id number] [place] [address] October, [facility] [address] [id number] [place] [address] October, [facility] [address] [facility] [id number] [facility] [place] [address] October, [facility] [address] [id number] [facility] [place] [address] October, [facility] [address] [id number] [facility] [place] [address] October, [facility] [address] [id number] [facility] [place] [address] October, [facility] [address] [facility] [id number] [facility] [place] [address] October, [facility] [address] [id number] [place] [address] October, [facility] [address] [id number] [place] [address] October, [facility] [address] [id number] [place] [address] October, [facility] [address] [id number] [place] [address] October, [facility] [address] [id number] [place] [address] Sep, [facility] [address] [id number] [place] [address] Sep, [facility] [address] [id number] [place] [address] Sep, [facility] [address] [id number] [facility] [place] [address] Sep, [facility] [address] [id number] [place] [address] Sep, [facility] [address] [id number] [place] [address] Sep, [facility] [address] [id number] [facility] [place] [address] Aug, [facility] [address] [id number] [place] [address] Aug, [facility] [address] [id number] [place] [address] Aug, [facility] [address] [id number] [place] [address] Aug, [facility] [address] [id number] [place] [address] Aug, [facility] [address] [id number] [place] [address] Aug, [facility] [address] [id number] [place] [address] Jul, [facility] [address] [id number] [place] [address] Jul, [facility] [address] [id number] [place] [address] Jul, [facility] [address] [id number] [place] [address] Jul, [facility] [address] [id number] [place] [address] Jun, [facility] [address] [id number] [place] [address] Jun, [facility] [address] [id number] [place] [address] May, [facility] [address] [id number] [place] [address] May, [facility] [address] [id number] [place] [address] May, [facility] [address] [id number] [place] [address] May, [facility] [address] [id number] [place] [address] May, [facility] [address] [id number] [place] [address] 13 Apr, 2013 [facility] [address] [id number] [place] [address] Apr, [facility] [address] [id number] [place] [address] Apr, [facility] [address] [id number] [place] [address] Apr, [facility] [address] [id number] [place] [address] Apr, [facility] [address] [facility] [id number] [place] [address] Apr, [facility] [address] [id number] [place] [address] 15 Mar, 2013 [facility] [address] [id number] [place] [address] 15 Mar, 2013 [facility] [address] [id number] [place] [address] 14 Mar, 2013 [facility] [address] [id number] [place] [address] 14 Mar, 2013 [facility] [address] [id number] [place] [address] Mar, [facility] [address] [id number] [place] [address] Mar, [facility] [address] [id number] [place] [address] 23 Feb, 2013 [facility] [address] [id number] [place] [address] 19 Feb, 2013 [facility] [address] [id number] [place] [address] 04 Feb, 2013 [facility] [address] [id number] [place] [address] 30 Jan, 2013 [facility] [address] [id number] [place] [address] Jan, [facility] [address] [id number] [facility] [place] [address] Jan, [facility] [address] [facility] [id number] [facility] [place] [address] Jan, [facility] [address] [facility] [id number] [place] [address] Jan, [facility] [address] [id number] [place] [address] Jan, [facility] [address] [facility] [id number] [place] [address] Dec, [facility] [address] [facility] [id number] [facility] [place] [address] Dec, [facility] [address] [id number] [place] [address] Dec, [facility] [address] [id number] [place] [address] Dec, [facility] [address] [id number] [place] [address] Dec, [facility] [address] [id number] [place] [address] Dec, [facility] [address] [id number] [place] [address] Nov, [facility] [address] [id number] [place] [address] Nov, [facility] [address] [id number] [place] [address] Nov, [facility] [address] [facility] [id number] [place] [address] Nov, [facility] [address] [id number] [place] [address] Nov, [facility] [address] [id number] [place] [address] Nov, [facility] [address] [id number] [place] [address] October, [facility] [address] [id number] [place] [address] October, [facility] [address] [id number] [place] [address] October, [facility] [address] [id number] [place] [address] October, [facility] [address] [id number] [place] [address] October, [facility] [address] [id number] [place] [address] Sep, [facility] [address] [id number] [place] [address] Sep, [facility] [address] [id number] [place] [address] Sep, [facility] [address] [id number] [place] [address] Sep, [facility] [address] [id number] [place] [address] Sep, [facility] [address] [id number] [place] [address] Aug, [facility] [address] [id number] [place] [address] Aug, [facility] [address] [id number] [place] [address] Aug, [facility] [address] [id number] [place] [address] Jul, [facility] [address] [id number] [place] [address] Jul, [facility] [address] [id number] [place] [address] Jul, [facility] [address] [id number] [place] [address] 08 Jul, 2012 [facility] [address] [id number] [place] [address] Jul, [facility] [address] [id number] [place] [address] Jul, [facility] [address] [id number] [place] [address] Jun, [facility] [address] [id number] [place] [address] Apr, [facility] [address] [id number] [place] [address] Apr, [facility] [address] [id number] [place] [address] Apr, [facility] [address] [id number] [place] [address] Apr, [facility] [address] [id number] [place] [address] Mar, [facility] [address] [id number] [place] [address] Mar, [facility] [address] [id number] [place] [address] Mar, [facility] [id number] [place] [address] Mar, [facility] [address] [id number] [place] [address] Mar, [facility] [address] [id number] [place] [address] Feb, [facility] [address] [id number] [place] [address] Jan, [facility] [address] [id number] [place] [address] Jan, [facility] [address] [id number] [place] [address] Jan, [facility] [address] [id number] [place] [address] Dec, [facility] [address] [id number] [place] [address] Nov, [facility] [address] [id number] [place] [address] Nov, [facility] [address] [id number] [place] [address] Nov, [facility] [address] [id number] [place] [address] Nov, [facility] [id number] [place] [address] Nov, [facility] [address] [id number] [place] [address] October, [facility] [address] [id number] [place] [address] October, [facility] [address] [id number] [place] [address] October, [facility] [address] [id number] [place] [address] October, [facility] [address] [id number] [place] [address] October, IMMUNIZATIONS No Known Immunizations SOCIAL HISTORY [...]
--- OUTSIDE RECORDS SUMMARY | 2020-01-25 07:36 | XMS REPORT ---
Author Author Velma Bull Organization [facility] Address [address] [place] [address] Care Team Providers Care Cafe Cook Name Role Phone CAITLIN Bull Unavailable PROBLEMS Type Condition ICD9-CM Code GCA59-FZ Code Onset Dates Condition S tatus SNOMED Code Problem Primary insomnia F51.01 Active 397 2004 Problem Hypercholesteremia E78.0 Active 1 2609773 Problem Corns L84 Active 473914240 Problem Arthritis M19.90 Active 3094402 Problem Hyperparathyroidism E21.3 Active 67369510 Problem 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 Active 61551531 Problem 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 Active 27027418 Problem BPV (benign positional vertigo), bilateral H81.13 Active 300682474 Problem Unspecified kidney failure N19 Act chip 55496762 Problem Myalgia M79.1 Active 84467996 Problem 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 Active 471496670 Problem Mood disorder F39 Active 254630 05 Problem Chronic kidney disease, stage 4 (severe) N18.4 Active 304581388 Problem Primary osteoarthritis of left knee M17.12 Active [id number] Problem Irritable bowel syndrome with both constipation and diarrh ea K58.2 Active 88268306 Problem Body mass index (BMI) of 40.0-44.9 in adult Z68.41 Active 445675032 ALLERGIES No Information ENCOUNTERS Encounter Location Date Diagnosis [facility] [address] [id number] [place] [address] Jul, Arthritis M19.90 [facility] [address] [facility] [place] [address] Jun, Knee pain, left M25.562 [facility] [address] [facility] [place] [address] May, Arthritis M19.90 [place] [address] [address] Apr, Well woman exam without gynecological ex am Z00.00 and Screening for breast cancer Z12.39 [place] [address] [address] Mar, Arthritis M19.90 [place] [address] [address] Mar, Arthritis M19.90 [place] [address] [address] Mar, [place] [address] [address] Mar, Arthritis M19.90 and Encounter for immun ization Z23 [place] [address] [address] Feb, Arthritis M19.90 [place] [address] [address] Feb, [place] [address] [address] Feb, Other specified disorders of bone densit y and structure, unspecified site M85.80 [place] [address] [address] Jan, Arthritis M19.90 [place] [address] [address] Dec, Arthritis M19.90 [place] [address] [address] Nov, Inflammatory spondylopathy of sacral reg ion M46.98 [place] [address] [address] Nov, [place] [address] [address] 14 Nov, 2018 Labyrinthitis of left ear H83.02 [place] [address] [address] 03 Nov, 2018 Arthritis M19.90 [place] [address] [address] 15 Sep, 2018 Arthritis M19.90 [place] [address] [address] 08 Sep, 2018 Renal insufficiency N28.9 and Unspecifie d kidney failure N19 [place] [address] [address] 08 Sep, 2018 Renal insufficiency N28.9 and Unspecifie d kidney failure N19 [place] [address] [address] Sep, Arthritis M19.90 [place] [address] [address] Aug, Exercise counseling Z71.82 [place] [address] [address] Aug, [place] [address] [address] Jul, Labyrinthitis of left ear H83.02 [place] [address] [address] Jul, Labyrinthitis of left ear H83.02 [place] [address] [address] Jul, Exercise counseling Z71.82 [place] [address] [address] 18 Jul, 2018 [place] [address] [address] 14 Jul, 2018 Arthritis M19.90 [place] [address] [address] 13 Jul, 2018 Encounter for Medicare annual wellness e xam Z00.00 ; Chronic kidney disease, stage 4 (severe) N18.4 ; Body mass index (BMI) of 40.0-44.9 in adult Z68.41 ; Hyperparathyroidism E21.3 and BMI 40.0-44.9, adult Z68.41 [place] [address] [address] 13 Jul, 2018 Encounter for Medicare annual wellness e xam Z00.00 ; Chronic kidney disease, stage 4 (severe) N18.4 ; Hyperparathyroidism E21.3 ; Body mass index (BMI) of 40.0-44.9 in adult Z68.41 and Encounter for immunization Z23 [address] [address] 11 Jul, 2018 Tail bone pain M53.[address] [address] 29 Jun, 2018 Exercise counseling Z71.[address] [address] Jun, Labyrinthitis of left ear H83.[address] [address] Jun, Tail bone pain M53.3 ; Irritable bowel s yndrome with both constipation and diarrhea K58.2 and Dysfunction of left eustachian tube H69.[address] [address] Jun, Exercise counseling Z71.[address] [address] Jun, Arthritis M19.[address] [address] 16 Jun, 2018 Irritable bowel syndrome with both const ipation and diarrhea K58.2 ; Tail bone pain M53.3 and Dysfunction of left eustachian tube H69.82 [place] [address] [address] Jun, Exercise counseling Z71.82 [place] [address] [address] Jun, Exercise counseling Z71.82 [facility] [address] [address] Jun, Labyrinthitis of left ear H83.02 [facility] [address] [address] May, Exercise counseling Z71.82 [facility] [address] [address] May, Arthritis M19.90 [facility] [address] [address] May, Exercise counseling Z71.82 [place] [address] [address] May, Exercise counseling Z71.82 [place] [address] [address] May, Labyrinthitis of left ear H83.02 [facility] [address] [address] May, Exercise counseling Z71.82 [place] [address] [address] Apr, Arthritis M19.90 [facility] [address] [address] Apr, Exercise counseling Z71.82 [facility] [address] [address] Apr, Exercise counseling Z71.82 [facility] [address] [address] Apr, Primary osteoarthritis of left knee M17. 12 [place] [address] [address] 08 Apr, 2018 Labyrinthitis of left ear H83.02 [facility] [address] [address] Mar, Arthritis M19.90 [place] [address] [address] Mar, [place] [address] [address] Mar, Chronic kidney disease, stage 4 (severe) N18.4 [place] [address] [address] Mar, Chronic kidney disease, stage 4 (severe) N18.4 [place] [address] [address] Mar, Labyrinthitis of left ear H83.02 [place] [address] [address] Mar, Chronic kidney disease, stage 4 (severe) N18.4 ; Knee pain, left anterior M25.562 ; 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 and Encounter for immunization Z23 [place] [address] [address] Mar, Arthritis M19.90 [place] [address] [address] Feb, Labyrinthitis of left ear H83.02 [place] [address] [address] Feb, Arthritis M19.90 [place] [address] [address] Jan, Labyrinthitis of left ear H83.02 [place] [address] [address] Jan, Arthritis M19.90 [place] [address] [address] Dec, Labyrinthitis of left ear H83.02 [place] [address] [address] Nov, Arthritis M19.90 [place] [address] [address] Nov, Labyrinthitis of left ear H83.02 [place] [address] [address] Nov, BMI 40.0-44.9, adult Z68.41 ; Chronic ki dney disease, stage 4 (severe) N18.4 and Acute right-sided thoracic back pain M54.[address] [address] October, Labyrinthitis of left ear H83.02 and Art hritis M19.[address] [address] Sep, BPV (benign positional vertigo), bilater al H81.13 ; Dysfunction of left eustachian tube H69.82 and BMI 40.0-44.9, adult Z68.[address] [address] Sep, Labyrinthitis of left ear H83.02 and Art hritis M19.[address] [address] Sep, [address] [address] Sep, [address] [address] Sep, Chronic kidney disease, stage 4 (severe) N18.[address] [address] Sep, Chronic kidney disease, stage 4 (severe) N18.[address] [address] Aug, Labyrinthitis of left ear H83.02 and Art hritis M19.[address] [address] Aug, [place] [address] [address] Jul, [place] [address] [address] Jul, Arthritis M19.90 and Labyrinthitis of le ft ear H83.02 [place] [address] [address] Jul, [place] [address] [address] Jun, [place] [address] [address] Jun, Arthritis M19.90 and Labyrinthitis of le ft ear H83.02 [place] [address] [address] Jun, Pre-op evaluation Z01.818 ; BMI 40.0-44. 9, adult Z68.41 and Encounter for immunization Z23 [place] [address] [address] May, Arthritis M19.90 and Labyrinthitis of le ft ear H83.02 [place] [address] [address] Apr, Labyrinthitis of left ear H83.02 [place] [address] [address] Apr, Arthritis M19.90 and Labyrinthitis of le ft ear H83.02 [place] [address] [address] Mar, Arthritis M19.90 and Labyrinthitis of le ft ear H83.02 [place] [address] [address] 05 Mar, 2017 Chronic kidney disease, stage 4 (severe) N18.4 [place] [address] [address] Feb, Arthritis M19.90 and Labyrinthitis of le ft ear H83.02 [place] [address] [address] Jan, Labyrinthitis of left ear H83.02 and Def iciency 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 [place] [address] [address] Dec, Arthritis M19.90 [place] [address] [address] Dec, BPV (benign positional vertigo), bilnila al H81.13 [place] [address] [address] Dec, [place] [address] [address] Dec, [place] [address] [address] Dec, [place] [address] [address] Nov, Arthritis M19.90 and 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 [place] [address] [address] Nov, Arthritis M19.90 [place] [address] [address] Nov, Hyperparathyroidism E21.3 [place] [address] [address] October, [place] [address] [address] October, Hyperparathyroidism E21.3 [place] [address] [address] October, [place] [address] [address] October, Renal insufficiency N28.9 and Hyperparat hyroidism E21.3 [facility] [address] [address] October, [facility] [address] [address] October, Renal insufficiency N28.9 and Hyperparat hyroidism E21.3 [facility] [address] [address] October, Arthritis M19.90 [facility] [address] [address] Sep, [place] [address] [address] Sep, Lumbar neuritis M54.16 ; Thoracic absces s J86.9 and 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 [place] [address] [address] Sep, [facility] [address] [address] Aug, Arthritis M19.90 [facility] [address] [address] Aug, Hyperparathyroidism E21.3 [place] [address] [address] Aug, Hyperparathyroidism E21.3 [facility] [address] [address] Aug, Arthritis M19.90 [facility] [address] [address] Jul, Mass of throat R22.1 [place] [address] [address] Jul, [facility] [address] [address] Jul, Arthritis M19.90 [facility] [address] [address] Jun, Arthritis M19.90 [facility] [address] [address] Jun, [place] [address] [address] Jun, Renal insufficiency N28.9 and Parathyroi d 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 [place] [address] [address] 05 Jun, 2016 Medicare welcome exam Z00.00 ; Encounter for immunization Z23 ; Arthritis M19.90 ; Medicare annual wellness visit, initial Z00.00 ; Medicare annual wellness visit, subsequent Z00.00 and 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 [place] [address] [address] May, Renal insufficiency N28.9 and Parathyroi d 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 [place] [address] [address] May, Renal insufficiency N28.9 [place] [address] [address] May, Renal insufficiency N28.9 [place] [address] [address] May, [place] [address] [address] Apr, [place] [address] [address] Apr, [place] [address] [address] 14 Apr, 2016 Mass of throat R22.1 [place] [address] [address] 10 Apr, 2016 [place] [address] [address] 10 Apr, 2016 Mass of throat R22.1 [place] [address] [address] Apr, Mass of throat R22.1 [facility] [address] [address] Mar, [facility] [address] [address] Mar, [place] [address] [address] Mar, [place] [address] [address] Mar, 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 for immunization Z23 [place] [address] [address] Mar, [place] [address] [address] Mar, [place] [address] [address] Feb, Renal insufficiency N28.9 and Hyperparat hyroidism E21.3 [place] [address] [address] 19 Feb, 2016 [place] [address] [address] 15 Feb, 2016 Renal insufficiency N28.9 and Hyperparat hyroidism E21.3 [place] [address] [address] 14 Feb, 2016 [place] [address] [address] 12 Feb, 2016 [place] [address] [address] 09 Feb, 2016 [facility] [address] [address] Jan, [place] [address] [address] Jan, Arthritis M19.90 ; Lumbago with sciatica , right side M54.41 and Other chronic pain G89.29 [place] [address] [address] Jan, [place] [address] [address] Dec, Arthritis M19.90 ; Lumbago with sciatica , right side M54.41 and Other chronic pain G89.29 [place] [address] [address] Nov, Deficiency of other specified B group vi tamins E53.8 ; Primary insomnia F51.01 ; Mood disorder F39 and Lumbago with sciatica, right side M54.41 [place] [address] [address] Nov, Hyperparathyroidism E21.3 [place] [address] [address] Nov, Unspecified kidney failure N19 and Hyper parathyroidism E21.3 [place] [address] [address] October, Hyperparathyroidism E21.3 [place] [address] [address] October, [place] [address] [address] October, Hyperparathyroidism E21.3 [place] [address] [address] October, Hyperparathyroidism E21.3 [place] [address] [address] Sep, Hyperparathyroidism E21.3 ; Hypercholest erolemia E78.0 and Arthritis M19.90 [place] [address] [address] Aug, [place] [address] [address] Aug, Deficiency of other specified B group vi tamins E53.8 [facility] [address] [address] Aug, [facility] [address] [address] Jul, Urinary frequency R35.0 [facility] [address] [address] Jul, Urinary frequency R35.0 [facility] [address] [address] Jul, [facility] [address] [address] Jul, [facility] [address] [address] Jun, Pain in left knee M25.562 [facility] [address] [address] Jun, [facility] [address] [address] May, Swelling of left knee joint M25.462 [facility] [address] [address] May, [facility] [address] [address] May, [facility] [address] [address] May, [facility] [address] [address] Apr, Renal insufficiency N28.9 and Chronic ki dney disease, stage 4 (severe) N18.4 [facility] [address] [address] Apr, Unspecified kidney failure N19 [facility] [address] [address] Apr, Unspecified kidney failure N19 [facility] [address] [place] [id number] [place] [address] Apr, [facility] [address] [address] Apr, Hyperparathyroidism, unspecified 252.00 [facility] [address] [address] Apr, [facility] [address] [address] Mar, [facility] [address] [address] Mar, [facility] [address] [address] Mar, Hyperparathyroidism, unspecified 252.00 [facility] [address] [address] Feb, [facility] [address] [address] Feb, Otalgia 388.70 [facility] [address] [address] Feb, [facility] [address] [address] Feb, [facility] [address] [address] Jan, [facility] [address] [address] Jan, Hyperparathyroidism, unspecified 252.00 [facility] [address] [address] Jan, [facility] [address] [address] Jan, Other B-complex deficiencies 266.2 and H yperparathyroidism, unspecified 252.00 [facility] [address] [address] Jan, [facility] [address] [id number] [place] [address] Jan, [facility] [address] [place] [id number] [place] [address] Jan, [facility] [address] [id number] [place] [address] Dec, [facility] [address] [place] [id number] [place] [address] Dec, [facility] [address] [id number] [place] [address] Dec, [facility] [address] [place] [id number] [place] [address] Nov, Routine check-up V70.0 and Pre-op exam V 72.84 [facility] [address] [place] [id number] [place] [address] Nov, [facility] [address] [place] [id number] [place] [address] Nov, [facility] [address] [place] [id number] [place] [address] October, [facility] [address] [place] [id number] [place] [address] October, Other B-complex deficiencies 266.2 [facility] [address] [id number] [place] [address] October, [facility] [address] [id number] [place] [address] Sep, [facility] [address] [id number] [place] [address] Sep, [facility] [id number] [place] [address] Aug, [facility] [id number] [place] [address] Aug, [facility] [address] [id number] [place] [address] Aug, 2014 [facility] [address] [facility] [id number] [place] [address] Aug, 2014 [facility] [address] [id number] [place] [address] Aug, 2014 [facility] [address] [id number] [place] [address] Aug, 2014 [facility] [address] [id number] [place] [address] Jul, 2014 [facility] [address] [facility] [id number] [facility] [place] [address] Jul, 2014 [facility] [address] [id number] [place] [address] Jul, 2014 [facility] [address] [id number] [place] [address] Jul, 2014 [facility] [address] [id number] [place] [address] Jul, 2014 [facility] [address] [id number] [place] [address] Jul, 2014 [facility] [address] [id number] [place] [address] Jul, 2014 [facility] [address] [id number] [place] [address] Jul, 2014 [facility] [address] [id number] [place] [address] Jul, 2014 [facility] [address] [id number] [place] [address] Jul, 2014 [facility] [address] [id number] [place] [address] Jul, 2014 [facility] [address] [id number] [place] [address] Jul, 2014 [facility] [address] [id number] [place] [address] Jul, [facility] [address] [id number] [place] [address] Jul, [facility] [address] [id number] [place] [address] Jun, [facility] [address] [id number] [place] [address] Jun, [facility] [address] [id number] [place] [address] Jun, [facility] [address] [id number] [place] [address] Jun, [facility] [address] [id number] [place] [address] Jun, [facility] [address] [id number] [place] [address] Jun, [facility] [address] [id number] [place] [address] Jun, [facility] [address] [id number] [place], [place] [address] Jun, [facility] [address] [id number] [place] [address] Jun, [facility] [address] [id number] [place] [address] Jun, [facility] [address] [id number] [place] [address] Jun, [facility] [address] [id number] [place] [address] Jun, [facility] [address] [id number] [place] [address] Jun, [facility] [address] [id number] [place] [address] Jun, [facility] [address] [id number] [place] [address] May, [facility] [address] [id number] [place] [address] May, [facility] [address] [facility] [id number] [place] [address] May, [facility] [address] [id number] [place] [address] May, [facility] [address] [id number] [place] [address] Apr, [facility] [address] [id number] [place] [address] Apr, [facility] [address] [id number] [place] [address] Apr, [facility] [address] [id number] [place] [address] Apr, [facility] [address] [id number] [place] [address] Apr, [facility] [address] [id number] [place] [address] Apr, [facility] [address] [id number] [place] [address] Mar, [facility] [address] [id number] [place] [address] Mar, [facility] [address] [id number] [place] [address] Mar, [facility] [address] [id number] [place] [address] Mar, [facility] [address] [id number] [place] [address] Mar, [facility] [address] [id number] [place] [address] 15 Mar, 2014 [facility] [address] [id number] [place] [address] Mar, [facility] [address] [id number] [place] [address] Mar, [facility] [address] [id number] [place] [address] 07 Mar, 2013 [facility] [address] [facility] [id number] [place] [address] 07 Mar, 2013 [facility] [address] [facility] [id number] [place] [address] Mar, 2013 [facility] [address] [id number] [place] [address] 07 Mar, 2013 [facility] [address] [facility] [id number] [place] [address] 06 Mar, 2013 [facility] [address] [facility] [id number] [place] [address] 26 Feb, 2013 [facility] [address] [id number] [place] [address] 26 Feb, 2013 [facility] [address] [id number] [place] [address] 23 Feb, 2013 [facility] [address] [id number] [place] [address] 23 Feb, 2013 [facility] [address] [facility] [id number] [place] [address] 19 Feb, 2013 [facility] [address] [id number] [place] [address] 19 Feb, 2013 [facility] [address] [id number] [place] [address] 13 Feb, 2013 [facility] [address] [id number] [place] [address] 13 Feb, 2013 [facility] [address] [facility] [id number] [place] [address] 12 Feb, 2013 [facility] [address] [id number] [place] [address] 12 Feb, 2014 [facility] [address] [id number] [place] [address] 15 Jan, 2014 [facility] [address] [id number] [place] [address] Jan, [facility] [address] [facility] [id number] [place] [address] Dec, [facility] [address] [facility] [id number] [place] [address] Dec, [facility] [address] [facility] [id number] [place] [address] Dec, [facility] [address] [id number] [place] [address] Dec, [facility] [address] [facility] [id number] [place] [address] Dec, [facility] [address] [id number] [place] [address] Dec, [facility] [address] [id number] [place] [address] Nov, [facility] [address] [id number] [place] [address] Nov, [facility] [address] [id number] [place] [address] Nov, [facility] [address] [id number] [place] [address] Nov, [facility] [address] [id number] [place] [address] October, [facility] [address] [id number] [place] [address] October, [facility] [address] [id number] [place] [address] October, [facility] [address] [id number] [place] [address] October, [facility] [address] [id number] [place] [address] October, [facility] [address] [id number] [place] [address] October, [facility] [address] [id number] [place] [address] October, [facility] [address] [facility] [id number] [facility] [address] October, [facility] [address] [id number] [facility] [place] [address] October, [facility] [address] [id number] [facility] [place] [address] October, [facility] [address] [id number] [facility] [place] [address] October, [facility] [address] [facility] [id number] [facility] [place] [address] October, [facility] [address] [id number] [place] [address] October, [facility] [address] [id number] [place] [address] October, [facility] [address] [id number] [place] [address] October, [facility] [address] [id number] [place] [address] October, [facility] [address] [id number] [place] [address] Sep, [facility] [address] [id number] [place] [address] Sep, [facility] [address] [id number] [place] [address] Sep, [facility] [address] [id number] [facility] [place] [address] Sep, [facility] [address] [id number] [place] [address] Sep, [facility] [address] [id number] [place] [address] Sep, [facility] [address] [id number] [facility] [place] [address] Aug, [facility] [address] [id number] [place] [address] Aug, [facility] [address] [id number] [place] [address] Aug, [facility] [address] [id number] [place] [address] Aug, [facility] [address] [id number] [place] [address] Aug, [facility] [address] [id number] [place] [address] Aug, [facility] [address] [id number] [place] [address] Jul, [facility] [address] [id number] [place] [address] Jul, [facility] [address] [id number] [place] [address] Jul, [facility] [address] [id number] [place] [address] Jul, [facility] [address] [id number] [place] [address] Jun, [facility] [address] [id number] [place] [address] Jun, [facility] [address] [id number] [place] [address] May, [facility] [address] [id number] [place] [address] May, [facility] [address] [id number] [place] [address] May, [facility] [address] [id number] [place] [address] May, [facility] [address] [id number] [place] [address] May, [facility] [address] [id number] [place] [address] 13 Apr, 2013 [facility] [address] [id number] [place] [address] Apr, [facility] [address] [id number] [place] [address] Apr, [facility] [address] [id number] [place] [address] Apr, [facility] [address] [id number] [place] [address] Apr, [facility] [address] [facility] [id number] [place] [address] Apr, [facility] [address] [id number] [place] [address] 15 Mar, 2013 [facility] [address] [id number] [place] [address] 15 Mar, 2013 [facility] [address] [id number] [place] [address] 14 Mar, 2013 [facility] [address] [id number] [place] [address] 14 Mar, 2013 [facility] [address] [id number] [place] [address] Mar, [facility] [address] [id number] [place] [address] Mar, [facility] [address] [id number] [place] [address] 23 Feb, 2013 [facility] [address] [id number] [place] [address] 19 Feb, 2013 [facility] [address] [id number] [place] [address] 04 Feb, 2013 [facility] [address] [id number] [place] [address] 30 Jan, 2013 [facility] [address] [id number] [place] [address] Jan, [facility] [address] [id number] [facility] [place] [address] Jan, [facility] [address] [facility] [id number] [facility] [place] [address] Jan, [facility] [address] [facility] [id number] [place] [address] Jan, [facility] [address] [id number] [place] [address] Jan, [facility] [address] [facility] [id number] [place] [address] Dec, [facility] [address] [facility] [id number] [facility] [place] [address] Dec, [facility] [address] [id number] [place] [address] Dec, [facility] [address] [id number] [place] [address] Dec, [facility] [address] [id number] [place] [address] Dec, [facility] [address] [id number] [place] [address] Dec, [facility] [address] [id number] [place] [address] Nov, [facility] [address] [id number] [place] [address] Nov, [facility] [address] [id number] [place] [address] Nov, [facility] [address] [facility] [id number] [place] [address] Nov, [facility] [address] [id number] [place] [address] Nov, [facility] [address] [id number] [place] [address] Nov, [facility] [address] [id number] [place] [address] October, [facility] [address] [id number] [place] [address] October, [facility] [address] [id number] [place] [address] October, [facility] [address] [id number] [place] [address] October, [facility] [address] [id number] [place] [address] October, [facility] [address] [id number] [place] [address] Sep, [facility] [address] [id number] [place] [address] Sep, [facility] [address] [id number] [place] [address] Sep, [facility] [address] [id number] [place] [address] Sep, [facility] [address] [id number] [place] [address] Sep, [facility] [address] [id number] [place] [address] Aug, [facility] [address] [id number] [place] [address] Aug, [facility] [address] [id number] [place] [address] Aug, [facility] [address] [id number] [place] [address] Jul, [facility] [address] [id number] [place] [address] Jul, [facility] [address] [id number] [place] [address] Jul, [facility] [address] [id number] [place] [address] 08 Jul, 2012 [facility] [address] [id number] [place] [address] Jul, [facility] [address] [id number] [place] [address] Jul, [facility] [address] [id number] [place] [address] Jun, [facility] [address] [id number] [place] [address] Apr, [facility] [address] [id number] [place] [address] Apr, [facility] [address] [id number] [place] [address] Apr, [facility] [address] [id number] [place] [address] Apr, [facility] [address] [id number] [place] [address] Mar, [facility] [address] [id number] [place] [address] Mar, [facility] [address] [id number] [place] [address] Mar, [facility] [id number] [place] [address] Mar, [facility] [address] [id number] [place] [address] Mar, [facility] [address] [id number] [place] [address] Feb, [facility] [address] [id number] [place] [address] Jan, [facility] [address] [id number] [place] [address] Jan, [facility] [address] [id number] [place] [address] Jan, [facility] [address] [id number] [place] [address] Dec, [facility] [address] [id number] [place] [address] Nov[facility] [address] [id number] [place] [address] Nov, [facility] [address] [id number] [place] [address] Nov, [facility] [address] [id number] [place] [address] Nov, [facility] [id number] [place] [address] Nov, [facility] [address] [id number] [place] [address] October, [facility] [address] [id number] [place] [address] October, [facility] [address] [id number] [place] [address] October, [facility] [address] [id number] [place] [address] October, [facility] [address] [id number] [place] [address] October, IMMUNIZATIONS No Known Immunizations SOCIAL HISTORY [...]
--- OUTSIDE RECORDS SUMMARY | 2020-01-25 07:37 | XMS REPORT ---
Author Author Velma Javed Doctor Organization [facility] Address Unknown Phone Unavailable Care Team Providers Care Shot Peen Operator Name Role Phone Migration, Doctor Unavailable Unavailable PROBLEMS Type Condition ICD9-CM Code [id number] Code Onset Dates Condition S tatus SNOMED Code Problem Primary insomnia F51.01 Active 397 2004 Problem Hypercholesteremia E78.0 Active 1 4873381 Problem Corns L84 Active 737448610 Problem Arthritis M19.90 Active 1133566 Problem Hyperparathyroidism E21.3 Active 88875759 Problem 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 Active 24507260 Problem 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 Active 92611990 Problem BPV (benign positional vertigo), bilateral H81.13 Active 431139968 Problem Unspecified kidney failure N19 Act chip 56224002 Problem Myalgia M79.1 Active 95839679 Problem 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 Active 322333223 Problem Mood disorder F39 Active 227546 05 Problem Chronic kidney disease, stage 4 (severe) N18.4 Active 420207961 Problem Primary osteoarthritis of left knee M17.12 Active [id number] Problem Irritable bowel syndrome with both constipation and diarrh ea K58.2 Active 00321928 Problem Body mass index (BMI) of 40.0-44.9 in adult Z68.41 Active 944737864 ALLERGIES No Information ENCOUNTERS Encounter Location Date Diagnosis [facility] [id number] [place] [address] Jun, Knee pain, left M25.562 [place] [facility] [address] [address] 17 May, 2019 Arthritis M19.90 [place] [address] [address] 05 Apr, 2019 Well woman exam without gynecological ex am Z00.00 and Screening for breast cancer Z12.39 [place] [address] [address] Mar, Arthritis M19.90 [facility] [address] [address] Mar, Arthritis M19.90 [facility] [address] [address] Mar, [facility] [address] [address] Mar, Arthritis M19.90 and Encounter for immun ization Z23 [facility] [address] [address] Feb, Arthritis M19.90 [facility] [address] [address] Feb, [facility] [address] [address] Feb, Other specified disorders of bone densit y and structure, unspecified site M85.80 [facility] [address] [address] Jan, Arthritis M19.90 [facility] [address] [address] Dec, Arthritis M19.90 [facility] [address] [address] Nov, Inflammatory spondylopathy of sacral reg ion M46.98 [facility] [address] [address] Nov, [facility] [address] [address] Nov, Labyrinthitis of left ear H83.02 [facility] [address] [address] Nov, Arthritis M19.90 [facility] [address] [address] Sep, Arthritis M19.90 [facility] [address] [address] 08 Sep, 2018 Renal insufficiency N28.9 and Unspecifie d kidney failure N19 [place] [address] [address] 08 Sep, 2018 Renal insufficiency N28.9 and Unspecifie d kidney failure N19 [place] [address] [address] 08 Sep, 2018 Arthritis M19.90 [place] [address] [address] 18 Aug, 2018 Exercise counseling Z71.82 [place] [address] [address] Aug, [place] [address] [address] 27 Jul, 2018 Labyrinthitis of left ear H83.02 [place] [address] [address] Jul, Labyrinthitis of left ear H83.02 [place] [address] [address] 19 Jul, 2018 Exercise counseling Z71.82 [facility] [address] [address] 18 Jul, 2018 [place] [address] [address] 14 Jul, 2018 Arthritis M19.90 [place] [address] [address] 13 Jul, 2018 Encounter for Medicare annual wellness e xam Z00.00 ; Chronic kidney disease, stage 4 (severe) N18.4 ; Body mass index (BMI) of 40.0-44.9 in adult Z68.41 ; Hyperparathyroidism E21.3 and BMI 40.0-44.9, adult Z68.41 [place] [address] [address] 13 Jul, 2018 Encounter for Medicare annual wellness e xam Z00.00 ; Chronic kidney disease, stage 4 (severe) N18.4 ; Hyperparathyroidism E21.3 ; Body mass index (BMI) of 40.0-44.9 in adult Z68.41 and Encounter for immunization Z23 [facility] [address] [address] 11 Jul, 2018 Tail bone pain M53.3 [place] [address] [address] 29 Jun, 2018 Exercise counseling Z71.82 [facility] [address] [address] Jun, Labyrinthitis of left ear H83.02 [place] [address] [address] Jun, Tail bone pain M53.3 ; Irritable bowel s yndrome with both constipation and diarrhea K58.2 and Dysfunction of left eustachian tube H69.82 [place] [address] [address] Jun, Exercise counseling Z71.82 [place] [address] [address] 18 Jun, 2018 Arthritis M19.[address] [address] 16 Jun, 2018 Irritable bowel syndrome with both const ipation and diarrhea K58.2 ; Tail bone pain M53.3 and Dysfunction of left eustachian tube H69.82 [place] [address] [address] Jun, Exercise counseling Z71.82 [place] [address] [address] Jun, Exercise counseling Z71.82 [place] [address] [address] Jun, Labyrinthitis of left ear H83.02 [place] [address] [address] May, Exercise counseling Z71.82 [facility] [address] [address] May, Arthritis M19.90 [facility] [address] [address] May, Exercise counseling Z71.82 [place] [address] [address] May, Exercise counseling Z71.82 [place] [address] [address] May, Labyrinthitis of left ear H83.02 [place] [address] [address] May, Exercise counseling Z71.82 [place] [address] [address] Apr, Arthritis M19.90 [place] [address] [address] Apr, Exercise counseling Z71.82 [place] [address] [address] Apr, Exercise counseling Z71.82 [place] [address] [address] Apr, Primary osteoarthritis of left knee M17. 12 [place] [address] [address] 08 Apr, 2018 Labyrinthitis of left ear H83.02 [place] [address] [address] 30 Mar, 2018 Arthritis M19.90 [facility] [address] [address] Mar, [place] [address] [address] Mar, Chronic kidney disease, stage 4 (severe) N18.4 [place] [address] [address] Mar, Chronic kidney disease, stage 4 (severe) N18.4 [place] [address] [address] Mar, Labyrinthitis of left ear H83.02 [place] [address] [address] Mar, Chronic kidney disease, stage 4 (severe) N18.4 ; Knee pain, left anterior M25.562 ; 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 and Encounter for immunization Z23 [place] [address] [address] Mar, Arthritis M19.90 [place] [address] [address] Feb, Labyrinthitis of left ear H83.02 [place] [address] [address] Feb, Arthritis M19.90 [place] [address] [address] Jan, Labyrinthitis of left ear H83.02 [place] [address] [address] Jan, Arthritis M19.90 [place] [address] [address] Dec, Labyrinthitis of left ear H83.02 [place] [address] [address] Nov, Arthritis M19.90 [place] [address] [address] Nov, Labyrinthitis of left ear H83.02 [place] [address] [address] Nov, BMI 40.0-44.9, adult Z68.41 ; Chronic ki dney disease, stage 4 (severe) N18.4 and Acute right-sided thoracic back pain M54.6 [place] [address] [address] October, Labyrinthitis of left ear H83.02 and Art hritis M19.90 [place] [address] [address] Sep, BPV (benign positional vertigo), bilater al H81.13 ; Dysfunction of left eustachian tube H69.82 and BMI 40.0-44.9, adult Z68.41 [place] [address] [address] Sep, Labyrinthitis of left ear H83.02 and Art hritis M19.90 [place] [address] [address] Sep, [place] [address] [address] Sep, [place] [address] [address] Sep, Chronic kidney disease, stage 4 (severe) N18.4 [place] [address] [address] Sep, Chronic kidney disease, stage 4 (severe) N18.4 [place] [address] [address] Aug, Labyrinthitis of left ear H83.02 and Art hritis M19.90 [place] [address] [address] Aug, [place] [address] [address] Jul, [place] [address] [address] Jul, Arthritis M19.90 and Labyrinthitis of le ft ear H83.02 [place] [address] [address] Jul, [place] [address] [address] Jun, [place] [address] [address] Jun, Arthritis M19.90 and Labyrinthitis of le ft ear H83.02 [place] [address] [address] Jun, Pre-op evaluation Z01.818 ; BMI 40.0-44. 9, adult Z68.41 and Encounter for immunization Z23 [address] [address] May, Arthritis M19.90 and Labyrinthitis of le ft ear H83.02 [place] [address] [address] Apr, Labyrinthitis of left ear H83.02 [place] [address] [address] Apr, Arthritis M19.90 and Labyrinthitis of le ft ear H83.02 [place] [address] [address] Mar, Arthritis M19.90 and Labyrinthitis of le ft ear H83.02 [place] [address] [address] Mar, Chronic kidney disease, stage 4 (severe) N18.4 [place] [address] [address] 06 Feb, 2017 Arthritis M19.90 and Labyrinthitis of le ft ear H83.02 [place] [address] [address] Jan, Labyrinthitis of left ear H83.02 and Def iciency 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 [place] [address] [address] Dec, Arthritis M19.90 [facility] [address] [address] Dec, BPV (benign positional vertigo), bilater al H81.13 [place] [address] [address] Dec, [place] [address] [address] Dec, [place] [address] [address] Dec, [place] [address] [address] Nov, Arthritis M19.90 and 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 [place] [address] [address] Nov, Arthritis M19.90 [place] [address] [address] Nov, Hyperparathyroidism E21.3 [place] [address] [address] October, [place] [address] [address] October, Hyperparathyroidism E21.3 [place] [address] [address] October, [place] [address] [address] October, Renal insufficiency N28.9 and Hyperparat hyroidism E21.3 [place] [address] [address] October, [place] [address] [address] October, Renal insufficiency N28.9 and Hyperparat hyroidism E21.3 [facility] [address] [address] October, Arthritis M19.90 [facility] [address] [address] Sep, [facility] [address] [address] Sep, Lumbar neuritis M54.16 ; Thoracic absces s J86.9 and 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 [facility] [address] [address] Sep, [facility] [address] [address] Aug, Arthritis M19.90 [facility] [address] [address] Aug, Hyperparathyroidism E21.3 [facility] [address] [address] Aug, Hyperparathyroidism E21.3 [facility] [address] [address] Aug, Arthritis M19.90 [facility] [address] [address] Jul, Mass of throat R22.1 [facility] [address] [address] Jul, [facility] [address] [address] Jul, Arthritis M19.90 [facility] [address] [address] Jun, Arthritis M19.90 [facility] [address] [address] Jun, [facility] [address] [address] Jun, Renal insufficiency N28.9 and Parathyroi d 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 [place] [address] [address] Jun, Medicare welcome exam Z00.00 ; Encounter for immunization Z23 ; Arthritis M19.90 ; Medicare annual wellness visit, initial Z00.00 ; Medicare annual wellness visit, subsequent Z00.00 and 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 [place] [address] [address] May, Renal insufficiency N28.9 and Parathyroi d 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 [place] [address] [address] May, Renal insufficiency N28.9 [place] [address] [address] May, Renal insufficiency N28.9 [place] [address] [address] May, [place] [address] [address] Apr, [place] [address] [address] 16 Apr, 2016 [place] [address] [address] 14 Apr, 2016 Mass of throat R22.1 [place] [address] [address] 10 Apr, 2016 [place] [address] [address] 10 Apr, 2016 Mass of throat R22.1 [place] [address] [address] 04 Apr, 2016 Mass of throat R22.1 [place] [address] [address] Mar, [place] [address] [address] Mar, [facility] [address] [address] Mar, [facility] [address] [address] Mar, 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 for immunization Z23 [facility] [address] [address] Mar, [facility] [address] [address] Mar, [facility] [address] [address] Feb, Renal insufficiency N28.9 and Hyperparat hyroidism E21.3 [place] [address] [address] 19 Feb, 2016 [facility] [address] [address] 15 Feb, 2016 Renal insufficiency N28.9 and Hyperparat hyroidism E21.3 [place] [address] [address] 14 Feb, 2016 [facility] [address] [address] 12 Feb, 2016 [facility] [address] [address] Feb, [facility] [address] [address] Jan, [facility] [address] [address] Jan, Arthritis M19.90 ; Lumbago with sciatica , right side M54.41 and Other chronic pain G89.29 [facility] [address] [address] Jan, [facility] [address] [address] Dec, Arthritis M19.90 ; Lumbago with sciatica , right side M54.41 and Other chronic pain G89.29 [place] [address] [address] Nov, Deficiency of other specified B group vi tamins E53.8 ; Primary insomnia F51.01 ; Mood disorder F39 and Lumbago with sciatica, right side M54.41 [place] [address] [address] Nov, Hyperparathyroidism E21.3 [place] [address] [address] Nov, Unspecified kidney failure N19 and Hyper parathyroidism E21.3 [place] [address] [address] October, Hyperparathyroidism E21.3 [place] [address] [address] October, [place] [address] [address] October, Hyperparathyroidism E21.3 [place] [address] [address] October, Hyperparathyroidism E21.3 [place] [address] [address] Sep, Hyperparathyroidism E21.3 ; Hypercholest erolemia E78.0 and Arthritis M19.90 [place] [address] [address] Aug, [place] [address] [address] Aug, Deficiency of other specified B group vi tamins E53.8 [place] [address] [address] Aug, [facility] [address] [address] Jul, Urinary frequency R35.0 [facility] [address] [address] Jul, Urinary frequency R35.0 [facility] [id number] [place] [address] Jul, [facility] [address] [address] Jul, [facility] [address] [address] Jun, Pain in left knee M25.562 [facility] [address] [address] Jun, [facility] [address] [address] May, Swelling of left knee joint M25.462 [facility] [address] [address] May, [facility] [address] [address] May, [facility] [address] [address] May, [facility] [address] [address] Apr, Renal insufficiency N28.9 and Chronic ki dney disease, stage 4 (severe) N18.4 [facility] [address] [address] Apr, Unspecified kidney failure N19 [facility] [address] [address] Apr, Unspecified kidney failure N19 [facility] [address] [address] Apr, [facility] [address] [address] Apr, Hyperparathyroidism, unspecified 252.00 [facility] [address] [address] Apr, [facility] [address] [address] Mar, [facility] [address] [address] Mar, [facility] [address] [address] Mar, Hyperparathyroidism, unspecified 252.00 [facility] [address] [address] Feb, [facility] [address] [address] Feb, Otalgia 388.70 [facility] [address] [address] Feb, [facility] [address] [address] Feb, [facility] [address] [address] Jan, [facility] [address] [address] Jan, Hyperparathyroidism, unspecified 252.00 [facility] [address] [address] Jan, [facility] [address] [address] Jan, Other B-complex deficiencies 266.2 and H yperparathyroidism, unspecified 252.00 [facility] [address] [address] Jan, [facility] [address] [address] Jan, [facility] [address] [address] Jan, [facility] [address] [id number] [place] [address] Dec, [facility] [address] [id number] [place] [address] Dec, [facility] [address] [id number] [place] [address] Dec, [facility] [id number] [place] [address] Nov, Routine check-up V70.0 and Pre-op exam V 72.84 [facility] [address] [id number] [place] [address] Nov, [facility] [id number] [place] [address] Nov, [facility] [id number] [place] [address] October, [facility] [id number] [place] [address] October, Other B-complex deficiencies 266.2 [facility] [address] [id number] [place] [address] October, [facility] [id number] [place] [address] Sep, [facility] [id number] [place] [address] Sep, [facility] [address] [id number] [place] [address] Aug, [facility] [address] [id number] [place] [address] Aug, [facility] [id number] [place] [address] Aug, [facility] [address] [id number] [place] [address] Aug, [facility] [id number] [place] [address] Aug, [facility] [address] [id number] [place] [address] Aug, [facility] [address] [id number] [place] [address] Jul, 2014 [facility] [address] [id number] [place] [address] Jul, 2014 [facility] [address] [id number] [place] [address] Jul, 2014 [facility] [address] [facility] [id number] [place] [address] Jul, 2014 [facility] [address] [id number] [place] [address] Jul, 2014 [facility] [address] [id number] [place] [address] Jul, 2014 [facility] [address] [id number] [place] [address] Jul, 2014 [facility] [address] [id number] [place] [address] Jul, 2014 [facility] [address] [id number] [place] [address] Jul, 2014 [facility] [address] [id number] [place] [address] Jul, 2014 [facility] [address] [id number] [place] [address] Jul, 2014 [facility] [address] [id number] [place] [address] Jul, 2014 [facility] [address] [id number] [place] [address] Jul, 2014 [facility] [address] [id number] [place] [address] Jul, 2014 [facility] [address] [id number] [place] [address] Jun, [facility] [address] [id number] [place] [address] Jun, [facility] [address] [id number] [place] [address] Jun, [facility] [address] [id number] [place] [address] Jun, [facility] [address] [id number] [place] [address] Jun, [facility] [address] [id number] [place] [address] Jun, [facility] [address] [id number] [place] [address] Jun, [facility] [address] [id number] [place] [address] Jun, [facility] [address] [id number] [place] [address] Jun, [facility] [address] [id number] [place] [address] Jun, [facility] [address] [id number] [place] [address] Jun, [facility] [address] [id number] [place] [address] Jun, [facility] [address] [id number] [place] [address] Jun, [facility] [address] [id number] [place] [address] Jun, [facility] [address] [id number] [place] [address] May, [facility] [address] [id number] [place] [address] May, [facility] [address] [id number] [place] [address] May, [facility] [address] [id number] [place] [address] May, [facility] [address] [facility] [id number] [place] [address] Apr, [facility] [address] [facility] [id number] [address] Apr, [facility] [address] [id number] [place] [address] Apr, [facility] [address] [id number] [place] [address] Apr, [facility] [address] [facility] [id number] [place] [address] Apr, [facility] [address] [id number] [place] [address] Apr, [facility] [address] [id number] [place] [address] Mar, [facility] [address] [id number] [place] [address] Mar, [facility] [address] [id number] [place] [address] Mar, [facility] [address] [id number] [place] [address] Mar, [facility] [address] [address] [id number] [place] [address] Mar, [facility] [place] [facility] [address] [id number] [place] [address] Mar, [facility] [place] [facility] [address] [id number] [place] [address] Mar, [facility] [place] [facility] [address] [id number] [place] [address] Mar, [facility] [place] [facility] [address] [id number] [place] [address] Mar, [facility] [place] [facility] [address] [id number] [place] [address] Mar, [facility] [place] [facility] [address] [id number] [place] [address] 07 Mar, 2013 [facility] [place] [facility] [address] [id number] [place] [address] Mar, [facility] [place] [facility] [address] [facility] [id number] [place] [address] Mar, [facility] [place] [facility] [address] [id number] [place] [address] Feb, [facility] [place] [facility] [address] [facility] [id number] [place] [address] Feb, [facility] [place] [facility] [address] [facility] [id number] [place] [address] Feb, [facility] [place] [facility] [address] [id number] [place] [address] Feb, [facility] [place] [facility] [address] [id number] [place] [address] Feb, [facility] [place] [facility] [address] [id number] [place] [address] Feb, [facility] [place] [facility] [address] [id number] [place] [address] Feb, [facility] [place] [facility] [address] [id number] [place] [address] Feb, [facility] [place] [facility] [address] [id number] [place] [address] Feb, [facility] [place] [facility] [address] [id number] [place] [address] Feb, [facility] [place] [facility] [address] [facility] [id number] [place] [address] Jan, [facility] [place] [facility] [address] [id number] [place] [address] Jan, [facility] [place] [facility] [address] [id number] [place] [address] Dec, [facility] [place] [facility] [address] [id number] [place] [address] Dec, [facility] [place] [facility] [address] [id number] [place] [address] Dec, [facility] [place] [facility] [address] [id number] [place] [address] Dec, [facility] [place] [facility] [address] [id number] [place] [address] Dec, [facility] [place] [facility] [address] [id number] [place] [address] Dec, [facility] [place] [facility] [address] [facility] [id number] [place] [address] Nov, [facility] [place] [facility] [address] [id number] [place] [address] Nov, [facility] [place] [facility] [address] [id number] [place] [address] Nov, [facility] [place] [facility] [address] [id number] [place] [address] Nov, [facility] [place] [facility] [address] [id number] [place] [address] October, [facility] [place] [facility] [address] [id number] [place] [address] October, [facility] [place] [facility] [address] [id number] [place] [address] October, [facility] [place] [facility] [address] [id number] [place] [address] October, [facility] [place] [facility] [address] [id number] [place] [address] October, [facility] [place] [facility] [address] [facility] [id number] [place] [address] October, [facility] [place] [facility] [address] [id number] [place] [address] October, [facility] [place] [facility] [address] [id number] [place] [address] October, [facility] [place] [facility] [address] [id number] [place] [address] October, [facility] [place] [facility] [address] [id number] [facility] [place] [address] October, [facility] [place] [facility] [address] [facility] [id number] [place] [address] October, [facility] [place] [facility] [address] [facility] [id number] [facility] [place] [address] October, [facility] [place] [facility] [address] [id number] [place] [address] October, [facility] [place] [facility] [address] [facility] [id number] [place] [address] October, [facility] [place] [facility] [address] [id number] [facility] [place] [address] October, [facility] [place] [facility] [address] [id number] [place] [address] October, [facility] [place] [facility] [address] [id number] [facility] [address] Sep, [facility] [place] [facility] [address] [facility] [id number] [place] [address] Sep, [facility] [place] [facility] [address] [id number] [facility] [place] [address] Sep, [facility] [place] [facility] [address] [id number] [place] [address] Sep, [facility] [place] [facility] [address] [id number] [place] [address] Sep, [facility] [place] [facility] [address] [facility] [id number] [facility] [place] [address] Sep, [facility] [place] [facility] [address] [id number] [facility] [place] [address] Aug, [facility] [place] [facility] [address] [facility] [id number] [place] [address] Aug, [facility] [place] [facility] [address] [id number] [facility] [place] [address] Aug, [facility] [place] [facility] [address] [id number] [place] [address] Aug, [facility] [place] [facility] [address] [facility] [id number] [place] [address] Aug, [facility] [place] [facility] [address] [id number] [place] [address] Aug, [facility] [place] [facility] [address] [id number] [place] [address] Jul, [facility] [place] [facility] [address] [id number] [place] [address] Jul, [facility] [place] [facility] [address] [id number] [place] [address] Jul, [facility] [place] [facility] [address] [id number] [place] [address] Jul, [facility] [place] [facility] [address] [id number] [place] [address] Jun, [facility] [place] [facility] [address] [id number] [place] [address] Jun, [facility] [place] [facility] [address] [id number] [place] [address] May, [facility] [place] [facility] [address] [id number] [place] [address] May, [facility] [place] [facility] [address] [id number] [place] [address] May, [facility] [place] [facility] [address] [id number] [place] [address] May, [facility] [place] [facility] [address] [id number] [place] [address] May, [facility] [place] [facility] [address] [id number] [place] [address] Apr, [facility] [place] [facility] [address] [id number] [place] [address] Apr, [facility] [place] [facility] [address] [id number] [place] [address] Apr, [facility] [place] [facility] [address] [facility] [id number] [place] [address] Apr, [facility] [place] [facility] [address] [id number] [place] [address] Apr, [facility] [place] [facility] [address] [id number] [place] [address] Apr, [facility] [place] [facility] [address] [id number] [place] [address] 15 Mar, 2013 [facility] [place] [facility] [address] [facility] [id number] [place] [address] 15 Mar, 2013 [facility] [place] [facility] [address] [id number] [place] [address] 14 Mar, 2013 [facility] [place] [facility] [address] [id number] [place] [address] 14 Mar, 2013 [facility] [place] [facility] [address] [id number] [place] [address] Mar, [facility] [place] [facility] [address] [id number] [place] [address] Mar, [facility] [place] [facility] [address] [id number] [place] [address] 23 Feb, 2013 [facility] [place] [facility] [address] [id number] [place] [address] Feb, [facility] [place] [facility] [address] [id number] [place] [address] Feb, [facility] [place] [facility] [address] [id number] [place] [address] 30 Jan, 2013 [facility] [place] [facility] [address] [facility] [id number] [place] [address] Jan, [facility] [place] [facility] [address] [id number] [place] [address] Jan, [facility] [place] [facility] [address] [id number] [place] [address] 16 Jan, 2013 [facility] [place] [facility] [address] [id number] [place] [address] Jan, [facility] [place] [facility] [address] [facility] [id number] [facility] [address] Jan, [facility] [place] [facility] [address] [facility] [id number] [facility] [place] [address] Dec, [facility] [place] [facility] [address] [id number] [place] [address] Dec, [facility] [place] [facility] [address] [id number] [facility] [place] [address] Dec, [facility] [place] [facility] [address] [facility] [id number] [facility] [place] [address] Dec, [facility] [place] [facility] [address] [id number] [place] [address] Dec, [facility] [place] [facility] [address] [id number] [place] [address] Dec, [facility] [place] [facility] [address] [id number] [place] [address] Nov, [facility] [place] [facility] [address] [id number] [place] [address] Nov, [facility] [place] [facility] [address] [id number] [place] [address] Nov, [facility] [place] [facility] [address] [id number] [place] [address] Nov, [facility] [place] [facility] [address] [id number] [place] [address] Nov, [facility] [place] [facility] [address] [id number] [place] [address] Nov, [facility] [place] [facility] [address] [id number] [place] [address] October, [facility] [place] [facility] [address] [id number] [place] [address] October, [facility] [place] [facility] [address] [id number] [place] [address] October, [facility] [place] [facility] [address] [id number] [place] [address] 15 Oct, 2012 [facility] [place] [facility] [address] [id number] [place] [address] October, [facility] [place] [facility] [address] [id number] [place] [address] 30 Sep, 2012 [facility] [place] [facility] [address] [id number] [place] [address] Sep, [facility] [place] [facility] [address] [id number] [place] [address] Sep, [facility] [place] [facility] [address] [id number] [place] [address] Sep, [facility] [place] [facility] [address] [id number] [place] [address] Sep, [facility] [place] [facility] [address] [id number] [place] [address] Aug, [facility] [place] [facility] [address] [id number] [place] [address] Aug, [facility] [place] [facility] [address] [id number] [place] [address] Aug, [facility] [place] [facility] [address] [id number] [place] [address] Jul, [facility] [place] [facility] [address] [id number] [place] [address] Jul, [facility] [place] [facility] [address] [id number] [place] [address] Jul, [facility] [place] [facility] [address] [id number] [place] [address] 08 Jul, 2012 [facility] [place] [facility] [address] [id number] [place] [address] 06 Jul, 2012 [facility] [place] [facility] [address] [id number] [place] [address] 05 Jul, 2012 [facility] [place] [facility] [address] [id number] [place] [address] Jun, [facility] [place] [facility] [address] [id number] [place] [address] Apr, [facility] [place] [facility] [address] [id number] [place] [address] Apr, [facility] [place] [facility] [address] [id number] [place] [address] Apr, [facility] [place] [facility] [address] [id number] [place] [address] Apr, [facility] [place] [facility] [address] [id number] [place] [address] Mar, [facility] [place] [facility] [address] [id number] [place] [address] Mar, [facility] [place] [facility] [address] [id number] [place] [address] Mar, [facility] [place] [facility] [address] [id number] [place] [address] Mar, [facility] [place] [facility] [address] [id number] [place] [address] Mar, [facility] [place] [facility] [address] [id number] [place] [address] Feb, [facility] [place] [facility] [address] [id number] [place] [address] Jan, [facility] [place] [facility] [address] [id number] [place] [address] Jan, [facility] [place] [facility] [address] [id number] [place] [address] Jan, [facility] [place] [facility] [address] [id number] [place] [address] Dec, [facility] [place] [facility] [address] [id number] [place] [address] Nov, [facility] [place] [facility] [address] [id number] [place] [address] Nov, [facility] [place] [facility] [address] [id number] [place] [address] Nov, [facility] [address] [id number] [place] [address] Nov, [facility] [address] [id number] [place] [address] Nov, [facility] [address] [id number] [place] [address] October, [facility] [address] [id number] [place] [address] October, [facility] [address] [id number] [place] [address] October, [facility] [address] [id number] [place] [address] October, [facility] [address] [id number] [place] [address] October, IMMUNIZATIONS No Known Immunizations SOCIAL HISTORY Never Assessed REASON FOR VISIT PLAN OF CARE VITAL SIGNS Blood pressure systolic 140 mmHg 2013-11-10 Blood pressure diastolic 80 mmHg 2013-11-10 MEDICATIONS No Known Medications RESULTS No Results PROCEDURES Procedure Date Ordered Result Body Site DRAIN/INJECT, JOINT/BURSA November 10, 2013 INJ TENDON SHEATH/LIGAMENT November 10, 2013 INSTRUCTIONS MEDICATIONS ADMINISTERED No Known Medications [...]
--- OUTSIDE RECORDS SUMMARY | 2020-01-25 07:37 | XMS REPORT ---
Author Author Velma Bull Organization [facility] Address [address] [place] [address] Care Team Providers Care Obiee Architect Name Role Phone CAITLIN Bull Unavailable PROBLEMS Type Condition ICD9-CM Code TLD33-[place] Code Onset Dates Condition S tatus SNOMED Code Problem Primary insomnia F51.01 Active 397 2004 Problem Hypercholesteremia E78.0 Active 1 7061345 Problem Corns L84 Active 327316944 Problem Arthritis M19.90 Active 8745022 Problem Hyperparathyroidism E21.3 Active 59868797 Problem 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 Active 73829493 Problem 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 Active 30456826 Problem BPV (benign positional vertigo), bilateral H81.13 Active 161608744 Problem Unspecified kidney failure N19 Act chip 33147298 Problem Myalgia M79.1 Active 73903341 Problem 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 Active 008951551 Problem Mood disorder F39 Active 730342 05 Problem Chronic kidney disease, stage 4 (severe) N18.4 Active 310564357 Problem Primary osteoarthritis of left knee M17.12 Active 619697176230166 Problem Irritable bowel syndrome with both constipation and diarrh ea K58.2 Active 31087253 Problem Body mass index (BMI) of 40.0-44.9 in adult Z68.41 Active 516826611 ALLERGIES No Information ENCOUNTERS Encounter Location Date Diagnosis [facility] [address] [id number] [place] [address] Jul, Arthritis M19.90 [facility] [address] [id number] [place] [address] Jun, Knee pain, left M25.562 [facility] [address] [id number] [place] [address] May, Arthritis M19.90 [place] [address] [address] Apr, Well woman exam without gynecological ex am Z00.00 and Screening for breast cancer Z12.39 [place] [address] [address] Mar, Arthritis M19.90 [place] [address] [address] Mar, Arthritis M19.90 [place] [address] [address] Mar, [place] [address] [address] Mar, Arthritis M19.90 and Encounter for immun ization Z23 [place] [address] [address] Feb, Arthritis M19.90 [place] [address] [address] Feb, [place] [address] [address] Feb, Other specified disorders of bone densit y and structure, unspecified site M85.80 [place] [address] [address] Jan, Arthritis M19.90 [place] [address] [address] Dec, Arthritis M19.90 [place] [address] [address] Nov, Inflammatory spondylopathy of sacral reg ion M46.98 [place] [address] [address] Nov, [place] [address] [address] 14 Nov, 2018 Labyrinthitis of left ear H83.02 [place] [address] [address] 03 Nov, 2018 Arthritis M19.90 [place] [address] [address] 15 Sep, 2018 Arthritis M19.90 [place] [address] [address] 08 Sep, 2018 Renal insufficiency N28.9 and Unspecifie d kidney failure N19 [place] [address] [address] 08 Sep, 2018 Renal insufficiency N28.9 and Unspecifie d kidney failure N19 [place] [address] [address] Sep, Arthritis M19.90 [place] [address] [address] Aug, Exercise counseling Z71.82 [place] [address] [address] Aug, [place] [address] [address] Jul, Labyrinthitis of left ear H83.02 [place] [address] [address] Jul, Labyrinthitis of left ear H83.02 [place] [address] [address] Jul, Exercise counseling Z71.82 [place] [address] [address] 18 Jul, 2018 [place] [address] [address] 14 Jul, 2018 Arthritis M19.90 [place] [address] [address] 13 Jul, 2018 Encounter for Medicare annual wellness e xam Z00.00 ; Chronic kidney disease, stage 4 (severe) N18.4 ; Body mass index (BMI) of 40.0-44.9 in adult Z68.41 ; Hyperparathyroidism E21.3 and BMI 40.0-44.9, adult Z68.41 [place] [address] [address] 13 Jul, 2018 Encounter for Medicare annual wellness e xam Z00.00 ; Chronic kidney disease, stage 4 (severe) N18.4 ; Hyperparathyroidism E21.3 ; Body mass index (BMI) of 40.0-44.9 in adult Z68.41 and Encounter for immunization Z23 [address] [address] 11 Jul, 2018 Tail bone pain M53.[address] [address] 29 Jun, 2018 Exercise counseling Z71.[address] [address] Jun, Labyrinthitis of left ear H83.[address] [address] Jun, Tail bone pain M53.3 ; Irritable bowel s yndrome with both constipation and diarrhea K58.2 and Dysfunction of left eustachian tube H69.[address] [address] Jun, Exercise counseling Z71.[address] [address] Jun, Arthritis M19.[address] [address] 16 Jun, 2018 Irritable bowel syndrome with both const ipation and diarrhea K58.2 ; Tail bone pain M53.3 and Dysfunction of left eustachian tube H69.82 [place] [address] [address] Jun, Exercise counseling Z71.82 [place] [address] [address] Jun, Exercise counseling Z71.82 [facility] [address] [address] Jun, Labyrinthitis of left ear H83.02 [facility] [address] [address] May, Exercise counseling Z71.82 [facility] [address] [address] May, Arthritis M19.90 [facility] [address] [address] May, Exercise counseling Z71.82 [place] [address] [address] May, Exercise counseling Z71.82 [place] [address] [address] May, Labyrinthitis of left ear H83.02 [facility] [address] [address] May, Exercise counseling Z71.82 [place] [address] [address] Apr, Arthritis M19.90 [facility] [address] [address] Apr, Exercise counseling Z71.82 [facility] [address] [address] Apr, Exercise counseling Z71.82 [facility] [address] [address] Apr, Primary osteoarthritis of left knee M17. 12 [place] [address] [address] 08 Apr, 2018 Labyrinthitis of left ear H83.02 [facility] [address] [address] Mar, Arthritis M19.90 [place] [address] [address] Mar, [place] [address] [address] Mar, Chronic kidney disease, stage 4 (severe) N18.4 [place] [address] [address] Mar, Chronic kidney disease, stage 4 (severe) N18.4 [place] [address] [address] Mar, Labyrinthitis of left ear H83.02 [place] [address] [address] Mar, Chronic kidney disease, stage 4 (severe) N18.4 ; Knee pain, left anterior M25.562 ; 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 and Encounter for immunization Z23 [place] [address] [address] Mar, Arthritis M19.90 [place] [address] [address] Feb, Labyrinthitis of left ear H83.02 [place] [address] [address] Feb, Arthritis M19.90 [place] [address] [address] Jan, Labyrinthitis of left ear H83.02 [place] [address] [address] Jan, Arthritis M19.90 [place] [address] [address] Dec, Labyrinthitis of left ear H83.02 [place] [address] [address] Nov, Arthritis M19.90 [place] [address] [address] Nov, Labyrinthitis of left ear H83.02 [place] [address] [address] Nov, BMI 40.0-44.9, adult Z68.41 ; Chronic ki dney disease, stage 4 (severe) N18.4 and Acute right-sided thoracic back pain M54.[address] [address] October, Labyrinthitis of left ear H83.02 and Art hritis M19.[address] [address] Sep, BPV (benign positional vertigo), bilater al H81.13 ; Dysfunction of left eustachian tube H69.82 and BMI 40.0-44.9, adult Z68.[address] [address] Sep, Labyrinthitis of left ear H83.02 and Art hritis M19.[address] [address] Sep, [address] [address] Sep, [address] [address] Sep, Chronic kidney disease, stage 4 (severe) N18.[address] [address] Sep, Chronic kidney disease, stage 4 (severe) N18.[address] [address] Aug, Labyrinthitis of left ear H83.02 and Art hritis M19.[address] [address] Aug, [place] [address] [address] Jul, [place] [address] [address] Jul, Arthritis M19.90 and Labyrinthitis of le ft ear H83.02 [place] [address] [address] Jul, [place] [address] [address] Jun, [place] [address] [address] Jun, Arthritis M19.90 and Labyrinthitis of le ft ear H83.02 [place] [address] [address] Jun, Pre-op evaluation Z01.818 ; BMI 40.0-44. 9, adult Z68.41 and Encounter for immunization Z23 [place] [address] [address] May, Arthritis M19.90 and Labyrinthitis of le ft ear H83.02 [place] [address] [address] Apr, Labyrinthitis of left ear H83.02 [place] [address] [address] Apr, Arthritis M19.90 and Labyrinthitis of le ft ear H83.02 [place] [address] [address] Mar, Arthritis M19.90 and Labyrinthitis of le ft ear H83.02 [place] [address] [address] 05 Mar, 2017 Chronic kidney disease, stage 4 (severe) N18.4 [place] [address] [address] Feb, Arthritis M19.90 and Labyrinthitis of le ft ear H83.02 [place] [address] [address] Jan, Labyrinthitis of left ear H83.02 and Def iciency 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 [place] [address] [address] Dec, Arthritis M19.90 [place] [address] [address] Dec, BPV (benign positional vertigo), bilnila al H81.13 [place] [address] [address] Dec, [place] [address] [address] Dec, [place] [address] [address] Dec, [place] [address] [address] Nov, Arthritis M19.90 and 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 [place] [address] [address] Nov, Arthritis M19.90 [place] [address] [address] Nov, Hyperparathyroidism E21.3 [place] [address] [address] October, [place] [address] [address] October, Hyperparathyroidism E21.3 [place] [address] [address] October, [place] [address] [address] October, Renal insufficiency N28.9 and Hyperparat hyroidism E21.3 [facility] [address] [address] October, [facility] [address] [address] October, Renal insufficiency N28.9 and Hyperparat hyroidism E21.3 [facility] [address] [address] October, Arthritis M19.90 [facility] [address] [address] Sep, [place] [address] [address] Sep, Lumbar neuritis M54.16 ; Thoracic absces s J86.9 and 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 [place] [address] [address] Sep, [facility] [address] [address] Aug, Arthritis M19.90 [facility] [address] [address] Aug, Hyperparathyroidism E21.3 [place] [address] [address] Aug, Hyperparathyroidism E21.3 [facility] [address] [address] Aug, Arthritis M19.90 [facility] [address] [address] Jul, Mass of throat R22.1 [place] [address] [address] Jul, [facility] [address] [address] Jul, Arthritis M19.90 [facility] [address] [address] Jun, Arthritis M19.90 [facility] [address] [address] Jun, [place] [address] [address] Jun, Renal insufficiency N28.9 and Parathyroi d 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 [place] [address] [address] 05 Jun, 2016 Medicare welcome exam Z00.00 ; Encounter for immunization Z23 ; Arthritis M19.90 ; Medicare annual wellness visit, initial Z00.00 ; Medicare annual wellness visit, subsequent Z00.00 and 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 [place] [address] [address] May, Renal insufficiency N28.9 and Parathyroi d 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 [place] [address] [address] May, Renal insufficiency N28.9 [place] [address] [address] May, Renal insufficiency N28.9 [place] [address] [address] May, [place] [address] [address] Apr, [place] [address] [address] Apr, [place] [address] [address] 14 Apr, 2016 Mass of throat R22.1 [place] [address] [address] 10 Apr, 2016 [place] [address] [address] 10 Apr, 2016 Mass of throat R22.1 [place] [address] [address] Apr, Mass of throat R22.1 [facility] [address] [address] Mar, [facility] [address] [address] Mar, [place] [address] [address] Mar, [place] [address] [address] Mar, 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 for immunization Z23 [place] [address] [address] Mar, [place] [address] [address] Mar, [place] [address] [address] Feb, Renal insufficiency N28.9 and Hyperparat hyroidism E21.3 [place] [address] [address] 19 Feb, 2016 [place] [address] [address] 15 Feb, 2016 Renal insufficiency N28.9 and Hyperparat hyroidism E21.3 [place] [address] [address] 14 Feb, 2016 [place] [address] [address] 12 Feb, 2016 [place] [address] [address] 09 Feb, 2016 [facility] [address] [address] Jan, [place] [address] [address] Jan, Arthritis M19.90 ; Lumbago with sciatica , right side M54.41 and Other chronic pain G89.29 [place] [address] [address] Jan, [place] [address] [address] Dec, Arthritis M19.90 ; Lumbago with sciatica , right side M54.41 and Other chronic pain G89.29 [place] [address] [address] Nov, Deficiency of other specified B group vi tamins E53.8 ; Primary insomnia F51.01 ; Mood disorder F39 and Lumbago with sciatica, right side M54.41 [place] [address] [address] Nov, Hyperparathyroidism E21.3 [place] [address] [address] Nov, Unspecified kidney failure N19 and Hyper parathyroidism E21.3 [place] [address] [address] October, Hyperparathyroidism E21.3 [place] [address] [address] October, [place] [address] [address] October, Hyperparathyroidism E21.3 [place] [address] [address] October, Hyperparathyroidism E21.3 [place] [address] [address] Sep, Hyperparathyroidism E21.3 ; Hypercholest erolemia E78.0 and Arthritis M19.90 [place] [address] [address] Aug, [place] [address] [address] Aug, Deficiency of other specified B group vi tamins E53.8 [facility] [address] [address] Aug, [facility] [address] [address] Jul, Urinary frequency R35.0 [facility] [address] [address] Jul, Urinary frequency R35.0 [facility] [address] [address] Jul, [facility] [address] [address] Jul, [facility] [address] [address] Jun, Pain in left knee M25.562 [facility] [address] [address] Jun, [facility] [address] [address] May, Swelling of left knee joint M25.462 [facility] [address] [address] May, [facility] [address] [address] May, [facility] [address] [address] May, [facility] [address] [address] Apr, Renal insufficiency N28.9 and Chronic ki dney disease, stage 4 (severe) N18.4 [facility] [address] [address] Apr, Unspecified kidney failure N19 [facility] [address] [address] Apr, Unspecified kidney failure N19 [facility] [address] [place] [id number] [place] [address] Apr, [facility] [address] [address] Apr, Hyperparathyroidism, unspecified 252.00 [facility] [address] [address] Apr, [facility] [address] [address] Mar, [facility] [address] [address] Mar, [facility] [address] [address] Mar, Hyperparathyroidism, unspecified 252.00 [facility] [address] [address] Feb, [facility] [address] [address] Feb, Otalgia 388.70 [facility] [address] [address] Feb, [facility] [address] [address] Feb, [facility] [address] [address] Jan, [facility] [address] [address] Jan, Hyperparathyroidism, unspecified 252.00 [facility] [address] [address] Jan, [facility] [address] [address] Jan, Other B-complex deficiencies 266.2 and H yperparathyroidism, unspecified 252.00 [facility] [address] [address] Jan, [facility] [address] [id number] [place] [address] Jan, [facility] [address] [place] [id number] [place] [address] Jan, [facility] [address] [id number] [place] [address] Dec, [facility] [address] [place] [id number] [place] [address] Dec, [facility] [address] [id number] [place] [address] Dec, [facility] [address] [place] [id number] [place] [address] Nov, Routine check-up V70.0 and Pre-op exam V 72.84 [facility] [address] [id number] [place] [address] Nov, [facility] [address] [place] [id number] [place] [address] Nov, [facility] [address] [id number] [place] [address] October, [facility] [address] [id number] [place] [address] October, Other B-complex deficiencies 266.2 [facility] [address] [place] [id number] [place] [address] October, [facility] [address] [id number] [place] [address] Sep, [facility] [id number] [place] [address] Sep, [facility] [address] [place] [id number] [place] [address] Aug, [facility] [address] [id number] [place] [address] Aug, [facility] [id number] [place] [address] Aug, 2014 [facility] [address] [facility] [id number] [place] [address] Aug, 2014 [facility] [address] [id number] [place] [address] Aug, 2014 [facility] [address] [id number] [place] [address] Aug, 2014 [facility] [address] [id number] [place] [address] Jul, 2014 [facility] [address] [facility] [id number] [facility] [place] [address] Jul, 2014 [facility] [address] [id number] [place] [address] Jul, 2014 [facility] [address] [id number] [place] [address] Jul, 2014 [facility] [address] [id number] [place] [address] Jul, 2014 [facility] [address] [id number] [place] [address] Jul, 2014 [facility] [address] [id number] [place] [address] Jul, 2014 [facility] [address] [id number] [place] [address] Jul, 2014 [facility] [address] [id number] [place] [address] Jul, 2014 [facility] [address] [id number] [place] [address] Jul, 2014 [facility] [address] [id number] [place] [address] Jul, 2014 [facility] [address] [id number] [place] [address] Jul, 2014 [facility] [address] [id number] [place] [address] Jul, [facility] [address] [id number] [place] [address] Jul, [facility] [address] [id number] [place] [address] Jun, [facility] [address] [id number] [place] [address] Jun, [facility] [address] [id number] [place] [address] Jun, [facility] [address] [id number] [place] [address] Jun, [facility] [address] [id number] [place] [address] Jun, [facility] [address] [id number] [place] [address] Jun, [facility] [address] [id number] [place] [address] Jun, [facility] [address] [id number] [place] [address] Jun, [facility] [address] [id number] [place] [address] Jun, [facility] [address] [id number] [place] [address] Jun, [facility] [address] [id number] [place] [address] Jun, [facility] [address] [id number] [place] [address] Jun, [facility] [address] [id number] [place] [address] Jun, [facility] [address] [id number] [place] [address] Jun, [facility] [address] [id number] [place] [address] May, [facility] [address] [id number] [place] [address] May, [facility] [address] [facility] [id number] [place] [address] May, [facility] [address] [id number] [place] [address] May, [facility] [address] [id number] [place] [address] Apr, [facility] [address] [id number] [place] [address] Apr, [facility] [address] [id number] [place] [address] Apr, [facility] [address] [id number] [place] [address] Apr, [facility] [address] [id number] [place] [address] Apr, [facility] [address] [id number] [place] [address] Apr, [facility] [address] [id number] [place] [address] Mar, [facility] [address] [id number] [place] [address] Mar, [facility] [address] [id number] [place] [address] Mar, [facility] [address] [id number] [place] [address] Mar, [facility] [address] [id number] [place] [address] Mar, [facility] [address] [id number] [place] [address] 15 Mar, 2014 [facility] [address] [id number] [place] [address] Mar, [facility] [address] [id number] [place] [address] Mar, [facility] [address] [id number] [place] [address] 07 Mar, 2013 [facility] [address] [facility] [id number] [place] [address] 07 Mar, 2013 [facility] [address] [facility] [id number] [place] [address] Mar, 2013 [facility] [address] [id number] [place] [address] 07 Mar, 2013 [facility] [address] [facility] [id number] [place] [address] 06 Mar, 2013 [facility] [address] [facility] [id number] [place] [address] 26 Feb, 2013 [facility] [address] [id number] [place] [address] 26 Feb, 2013 [facility] [address] [id number] [place] [address] 23 Feb, 2013 [facility] [address] [id number] [place] [address] 23 Feb, 2013 [facility] [address] [facility] [id number] [place] [address] 19 Feb, 2013 [facility] [address] [id number] [place] [address] 19 Feb, 2013 [facility] [address] [id number] [place] [address] 13 Feb, 2013 [facility] [address] [id number] [place] [address] 13 Feb, 2013 [facility] [address] [facility] [id number] [place] [address] 12 Feb, 2013 [facility] [address] [id number] [place] [address] 12 Feb, 2014 [facility] [address] [id number] [place] [address] 15 Jan, 2014 [facility] [address] [id number] [place] [address] Jan, [facility] [address] [facility] [id number] [place] [address] Dec, [facility] [address] [facility] [id number] [place] [address] Dec, [facility] [address] [facility] [id number] [place] [address] Dec, [facility] [address] [id number] [place] [address] Dec, [facility] [address] [facility] [id number] [place] [address] Dec, [facility] [address] [id number] [place] [address] Dec, [facility] [address] [id number] [place] [address] Nov, [facility] [address] [id number] [place] [address] Nov, [facility] [address] [id number] [place] [address] Nov, [facility] [address] [id number] [place] [address] Nov, [facility] [address] [id number] [place] [address] October, [facility] [address] [id number] [place] [address] October, [facility] [address] [id number] [place] [address] October, [facility] [address] [id number] [place] [address] October, [facility] [address] [id number] [place] [address] October, [facility] [address] [id number] [place] [address] October, [facility] [address] [id number] [place] [address] October, [facility] [address] [facility] [id number] [facility] [address] October, [facility] [address] [id number] [facility] [address] October, [facility] [address] [id number] [facility] [address] October, [facility] [address] [id number] [facility] [address] October, [facility] [address] [facility] [id number] [facility] [address] October, [facility] [address] [id number] [place] [address] October, [facility] [address] [id number] [place] [address] October, [facility] [address] [id number] [place] [address] October, [facility] [address] [id number] [place] [address] October, [facility] [address] [id number] [place] [address] Sep, [facility] [address] [id number] [place] [address] Sep, [facility] [address] [id number] [place] [address] Sep, [facility] [address] [id number] [facility] [address] Sep, [facility] [address] [place] [id number] [place] [address] Sep, [facility] [address] [id number] [place] [address] Sep, [facility] [address] [id number] [facility] [address] Aug, [facility] [address] [id number] [place] [address] Aug, [facility] [address] [id number] [place] [address] Aug, [facility] [address] [id number] [place] [address] Aug, [facility] [address] [id number] [place] [address] Aug, [facility] [address] [id number] [place] [address] Aug, [facility] [address] [id number] [place] [address] Jul, [facility] [address] [id number] [place] [address] Jul, [facility] [address] [id number] [place] [address] Jul, [facility] [address] [id number] [place] [address] Jul, [facility] [address] [id number] [place] [address] Jun, [facility] [address] [id number] [place] [address] Jun, [facility] [address] [id number] [place] [address] May, [facility] [address] [id number] [place] [address] May, [facility] [address] [id number] [place] [address] May, [facility] [address] [id number] [place] [address] May, [facility] [address] [id number] [place] [address] May, [facility] [address] [id number] [place] [address] 13 Apr, 2013 [facility] [address] [id number] [place] [address] Apr, [facility] [address] [id number] [place] [address] Apr, [facility] [address] [id number] [place] [address] Apr, [facility] [address] [id number] [place] [address] Apr, [facility] [address] [facility] [id number] [place] [address] Apr, [facility] [address] [id number] [place] [address] 15 Mar, 2013 [facility] [address] [id number] [place] [address] 15 Mar, 2013 [facility] [address] [id number] [place] [address] 14 Mar, 2013 [facility] [address] [id number] [place] [address] 14 Mar, 2013 [facility] [address] [id number] [place] [address] Mar, [facility] [address] [id number] [place] [address] Mar, [facility] [address] [id number] [place] [address] 23 Feb, 2013 [facility] [address] [id number] [place] [address] 19 Feb, 2013 [facility] [address] [id number] [place] [address] 04 Feb, 2013 [facility] [address] [id number] [place] [address] 30 Jan, 2013 [facility] [address] [id number] [place] [address] Jan, [facility] [address] [id number] [facility] [address] Jan, [facility] [address] [facility] [id number] [facility] [address] Jan, [facility] [address] [facility] [id number] [place] [address] Jan, [facility] [address] [id number] [place] [address] Jan, [facility] [address] [facility] [id number] [place] [address] Dec, [facility] [address] [facility] [id number] [facility] [address] Dec, [facility] [address] [id number] [place] [address] Dec, [facility] [address] [id number] [place] [address] Dec, [facility] [address] [id number] [place] [address] Dec, [facility] [address] [id number] [place] [address] Dec, [facility] [address] [id number] [place] [address] Nov, [facility] [address] [id number] [place] [address] Nov, [facility] [address] [id number] [place] [address] Nov, [facility] [address] [facility] [id number] [place] [address] Nov, [facility] [address] [id number] [place] [address] Nov, [facility] [address] [id number] [place] [address] Nov, [facility] [address] [id number] [place] [address] October, [facility] [address] [id number] [place] [address] October, [facility] [address] [id number] [place] [address] October, [facility] [address] [id number] [place] [address] October, [facility] [address] [id number] [place] [address] October, [facility] [address] [id number] [place] [address] Sep, [facility] [address] [id number] [place] [address] Sep, [facility] [address] [id number] [place] [address] Sep, [facility] [address] [id number] [place] [address] Sep, [facility] [address] [id number] [place] [address] Sep, [facility] [address] [id number] [place] [address] Aug, [facility] [address] [id number] [place] [address] Aug, [facility] [address] [id number] [place] [address] Aug, [facility] [address] [id number] [place] [address] Jul, [facility] [address] [id number] [place] [address] Jul, [facility] [address] [id number] [place] [address] Jul, [facility] [address] [id number] [place] [address] 08 Jul, 2012 [facility] [address] [id number] [place] [address] Jul, [facility] [address] [id number] [place] [address] Jul, [facility] [address] [id number] [place] [address] Jun, [facility] [address] [id number] [place] [address] Apr, [facility] [address] [id number] [place] [address] Apr, [facility] [address] [id number] [place] [address] Apr, [facility] [address] [id number] [place] [address] Apr, [facility] [address] [id number] [place] [address] Mar, [facility] [address] [id number] [place] [address] Mar, [facility] [address] [id number] [place] [address] Mar, [facility] [id number] [place] [address] Mar, [facility] [address] [id number] [place] [address] Mar, [facility] [address] [id number] [place] [address] Feb, [facility] [address] [id number] [place] [address] Jan, [facility] [address] [id number] [place] [address] Jan, [facility] [address] [id number] [place] [address] Jan, [facility] [address] [id number] [place] [address] Dec, [facility] [address] [id number] [place] [address] Nov, [facility] [address] [id number] [place] [address] Nov, [facility] [address] [id number] [place] [address] Nov, [facility] [address] [id number] [place] [address] Nov, [facility] [id number] [place] [address] Nov, [facility] [address] [id number] [place] [address] October, [facility] [address] [id number] [place] [address] October, [facility] [address] [id number] [place] [address] October, [facility] [address] [id number] [place] [address] October, [facility] [address] [id number] [place] [address] October, IMMUNIZATIONS No Known Immunizations SOCIAL HISTORY [...]
--- OUTSIDE RECORDS SUMMARY | 2020-01-25 07:38 | XMS REPORT ---
Author Author Velma Bull Organization [facility] Address [address] [place] [address] Care Team Providers Care Interventional Nurse Name Role Phone CAITLIN Bull Unavailable PROBLEMS Type Condition ICD9-CM Code MXP03-SC Code Onset Dates Condition S tatus SNOMED Code Problem Primary insomnia F51.01 Active 397 2004 Problem Hypercholesteremia E78.0 Active 1 4978083 Problem Corns L84 Active 482550474 Problem Arthritis M19.90 Active 4394869 Problem Hyperparathyroidism E21.3 Active 51711844 Problem 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 Active 09533815 Problem 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 Active 63048451 Problem BPV (benign positional vertigo), bilateral H81.13 Active 973262045 Problem Unspecified kidney failure N19 Act chip 89245685 Problem Myalgia M79.1 Active 94243078 Problem 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 Active 257095096 Problem Mood disorder F39 Active 981080 05 Problem Chronic kidney disease, stage 4 (severe) N18.4 Active 219774040 Problem Primary osteoarthritis of left knee M17.12 Active 404322510988587 Problem Irritable bowel syndrome with both constipation and diarrh ea K58.2 Active 06898592 Problem Body mass index (BMI) of 40.0-44.9 in adult Z68.41 Active 539965329 ALLERGIES No Information ENCOUNTERS Encounter Location Date Diagnosis [facility] [address] [id number] [place] [address] Jun, Knee pain, left M25.562 [facility] [address] [id number] [place] [address] May, Arthritis M19.90 [facility] [address] [id number] [place] [address] Apr, Well woman exam without gynecological ex am Z00.00 and Screening for breast cancer Z12.39 [facility] [address] [address] Mar, Arthritis M19.90 [facility] [address] [address] Mar, Arthritis M19.90 [facility] [address] [address] Mar, [facility] [address] [address] Mar, Arthritis M19.90 and Encounter for immun ization Z23 [place] [address] [address] Feb, Arthritis M19.90 [place] [address] [address] Feb, [place] [address] [address] Feb, Other specified disorders of bone densit y and structure, unspecified site M85.80 [place] [address] [address] Jan, Arthritis M19.90 [place] [address] [address] Dec, Arthritis M19.90 [facility] [address] [address] Nov, Inflammatory spondylopathy of sacral reg ion M46.98 [facility] [address] [address] Nov, [facility] [address] [address] Nov, Labyrinthitis of left ear H83.02 [facility] [address] [address] Nov, Arthritis M19.90 [facility] [address] [address] 15 Sep, 2018 Arthritis M19.90 [place] [address] [address] 08 Sep, 2018 Renal insufficiency N28.9 and Unspecifie d kidney failure N19 [place] [address] [address] 08 Sep, 2018 Renal insufficiency N28.9 and Unspecifie d kidney failure N19 [place] [address] [address] 08 Sep, 2018 Arthritis M19.90 [place] [address] [address] Aug, Exercise counseling Z71.82 [place] [address] [address] Aug, [place] [address] [address] 27 Jul, 2018 Labyrinthitis of left ear H83.02 [place] [address] [address] Jul, Labyrinthitis of left ear H83.02 [place] [address] [address] 19 Jul, 2018 Exercise counseling Z71.82 [place] [address] [address] 18 Jul, 2018 [place] [address] [address] 14 Jul, 2018 Arthritis M19.90 [place] [address] [address] 13 Jul, 2018 Encounter for Medicare annual wellness e xam Z00.00 ; Chronic kidney disease, stage 4 (severe) N18.4 ; Body mass index (BMI) of 40.0-44.9 in adult Z68.41 ; Hyperparathyroidism E21.3 and BMI 40.0-44.9, adult Z68.41 [place] [address] [address] 13 Jul, 2018 Encounter for Medicare annual wellness e xam Z00.00 ; Chronic kidney disease, stage 4 (severe) N18.4 ; Hyperparathyroidism E21.3 ; Body mass index (BMI) of 40.0-44.9 in adult Z68.41 and Encounter for immunization Z23 [place] [address] [address] 11 Jul, 2018 Tail bone pain M53.3 [place] [address] [address] Jun, Exercise counseling Z71.[address] [address] Jun, Labyrinthitis of left ear H83.[address] [address] Jun, Tail bone pain M53.3 ; Irritable bowel s yndrome with both constipation and diarrhea K58.2 and Dysfunction of left eustachian tube H69.82 [place] [address] [address] Jun, Exercise counseling Z71.82 [place] [address] [address] Jun, Arthritis M19.[address] [address] Jun, Irritable bowel syndrome with both const ipation and diarrhea K58.2 ; Tail bone pain M53.3 and Dysfunction of left eustachian tube H69.82 [place] [address] [address] Jun, Exercise counseling Z71.82 [place] [address] [address] Jun, Exercise counseling Z71.82 [place] [address] [address] Jun, Labyrinthitis of left ear H83.02 [facility] [address] [address] May, Exercise counseling Z71.82 [facility] [address] [address] May, Arthritis M19.90 [facility] [address] [address] May, Exercise counseling Z71.82 [facility] [address] [address] May, Exercise counseling Z71.82 [place] [address] [address] May, Labyrinthitis of left ear H83.02 [place] [address] [address] May, Exercise counseling Z71.82 [facility] [address] [address] Apr, Arthritis M19.90 [place] [address] [address] Apr, Exercise counseling Z71.82 [place] [address] [address] Apr, Exercise counseling Z71.82 [place] [address] [address] Apr, Primary osteoarthritis of left knee M17. 12 [facility] [address] [address] Apr, Labyrinthitis of left ear H83.02 [facility] [address] [address] Mar, Arthritis M19.90 [facility] [address] [address] Mar, [place] [address] [address] Mar, Chronic kidney disease, stage 4 (severe) N18.4 [facility] [address] [address] Mar, Chronic kidney disease, stage 4 (severe) N18.4 [facility] [address] [address] Mar, Labyrinthitis of left ear H83.02 [place] [address] [address] Mar, Chronic kidney disease, stage 4 (severe) N18.4 ; Knee pain, left anterior M25.562 ; 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 and Encounter for immunization Z23 [place] [address] [address] Mar, Arthritis M19.90 [place] [address] [address] Feb, Labyrinthitis of left ear H83.02 [place] [address] [address] Feb, Arthritis M19.90 [facility] [address] [address] Jan, Labyrinthitis of left ear H83.02 [place] [address] [address] Jan, Arthritis M19.90 [facility] [address] [address] Dec, Labyrinthitis of left ear H83.02 [place] [address] [address] Nov, Arthritis M19.90 [facility] [address] [address] Nov, Labyrinthitis of left ear H83.02 [place] [address] [address] Nov, BMI 40.0-44.9, adult Z68.41 ; Chronic ki dney disease, stage 4 (severe) N18.4 and Acute right-sided thoracic back pain M54.6 [place] [address] [address] October, Labyrinthitis of left ear H83.02 and Art hritis M19.90 [place] [address] [address] Sep, BPV (benign positional vertigo), bilater al H81.13 ; Dysfunction of left eustachian tube H69.82 and BMI 40.0-44.9, adult Z68.41 [place] [address] [address] Sep, Labyrinthitis of left ear H83.02 and Art hritis M19.90 [place] [address] [address] Sep, [place] [address] [address] Sep, [place] [address] [address] Sep, Chronic kidney disease, stage 4 (severe) N18.4 [place] [address] [address] Sep, Chronic kidney disease, stage 4 (severe) N18.4 [place] [address] [address] Aug, Labyrinthitis of left ear H83.02 and Art hritis M19.90 [place] [address] [address] Aug, [place] [address] [address] Jul, [place] [address] [address] Jul, Arthritis M19.90 and Labyrinthitis of le ft ear H83.02 [place] [address] [address] Jul, [place] [address] [address] Jun, [place] [address] [address] Jun, Arthritis M19.90 and Labyrinthitis of le ft ear H83.02 [place] [address] [address] Jun, Pre-op evaluation Z01.818 ; BMI 40.0-44. 9, adult Z68.41 and Encounter for immunization Z23 [place] [address] [address] May, Arthritis M19.90 and Labyrinthitis of le ft ear H83.02 [place] [address] [address] Apr, Labyrinthitis of left ear H83.02 [place] [address] [address] Apr, Arthritis M19.90 and Labyrinthitis of le ft ear H83.02 [place] [address] [address] Mar, Arthritis M19.90 and Labyrinthitis of le ft ear H83.02 [place] [address] [address] Mar, Chronic kidney disease, stage 4 (severe) N18.4 [place] [address] [address] 06 Feb, 2017 Arthritis M19.90 and Labyrinthitis of le ft ear H83.02 [place] [address] [address] Jan, Labyrinthitis of left ear H83.02 and Def iciency 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 [place] [address] [address] Dec, Arthritis M19.90 [place] [address] [address] Dec, BPV (benign positional vertigo), bilater al H81.13 [place] [address] [address] Dec, [place] [address] [address] Dec, [place] [address] [address] Dec, [place] [address] [address] Nov, Arthritis M19.90 and 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 [place] [address] [address] Nov, Arthritis M19.90 [place] [address] [address] Nov, Hyperparathyroidism E21.3 [place] [address] [address] October, [place] [address] [address] October, Hyperparathyroidism E21.3 [place] [address] [address] October, [place] [address] [address] October, Renal insufficiency N28.9 and Hyperparat hyroidism E21.3 [place] [address] [address] October, [facility] [address] [address] October, Renal insufficiency N28.9 and Hyperparat hyroidism E21.3 [facility] [address] [address] October, Arthritis M19.90 [facility] [address] [address] Sep, [facility] [address] [address] Sep, Lumbar neuritis M54.16 ; Thoracic absces s J86.9 and 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 [facility] [address] [address] Sep, [facility] [address] [address] Aug, Arthritis M19.90 [facility] [address] [address] Aug, Hyperparathyroidism E21.3 [facility] [address] [address] Aug, Hyperparathyroidism E21.3 [facility] [address] [address] Aug, Arthritis M19.90 [facility] [address] [address] Jul, Mass of throat R22.1 [facility] [address] [address] Jul, [facility] [address] [address] Jul, Arthritis M19.90 [facility] [address] [address] Jun, Arthritis M19.90 [facility] [address] [address] Jun, [facility] [address] [address] Jun, Renal insufficiency N28.9 and Parathyroi d 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 [facility] [address] [address] Jun, Medicare welcome exam Z00.00 ; Encounter for immunization Z23 ; Arthritis M19.90 ; Medicare annual wellness visit, initial Z00.00 ; Medicare annual wellness visit, subsequent Z00.00 and 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 [place] [address] [address] May, Renal insufficiency N28.9 and Parathyroi d 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 [place] [address] [address] May, Renal insufficiency N28.9 [place] [address] [address] May, Renal insufficiency N28.9 [facility] [address] [address] May, [place] [address] [address] Apr, [place] [address] [address] Apr, [place] [address] [address] 14 Apr, 2016 Mass of throat R22.1 [facility] [address] [address] 10 Apr, 2016 [facility] [address] [address] 10 Apr, 2016 Mass of throat R22.1 [place] [address] [address] 04 Apr, 2016 Mass of throat R22.1 [facility] [address] [address] Mar, [facility] [address] [address] Mar, [facility] [address] [address] Mar, [facility] [address] [address] Mar, 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 for immunization Z23 [place] [address] [address] Mar, [place] [address] [address] Mar, [place] [address] [address] 21 Feb, 2016 Renal insufficiency N28.9 and Hyperparat hyroidism E21.3 [place] [address] [address] 19 Feb, 2016 [facility] [address] [address] 15 Feb, 2016 Renal insufficiency N28.9 and Hyperparat hyroidism E21.3 [place] [address] [address] 14 Feb, 2016 [place] [address] [address] 12 Feb, 2016 [facility] [address] [address] 09 Feb, 2016 [place] [address] [address] Jan, [place] [address] [address] Jan, Arthritis M19.90 ; Lumbago with sciatica , right side M54.41 and Other chronic pain G89.29 [place] [address] [address] Jan, [place] [address] [address] Dec, Arthritis M19.90 ; Lumbago with sciatica , right side M54.41 and Other chronic pain G89.29 [place] [address] [address] Nov, Deficiency of other specified B group vi tamins E53.8 ; Primary insomnia F51.01 ; Mood disorder F39 and Lumbago with sciatica, right side M54.41 [place] [address] [address] Nov, Hyperparathyroidism E21.3 [place] [address] [address] Nov, Unspecified kidney failure N19 and Hyper parathyroidism E21.3 [place] [address] [address] October, Hyperparathyroidism E21.3 [place] [address] [address] October, [place] [address] [address] October, Hyperparathyroidism E21.3 [place] [address] [address] October, Hyperparathyroidism E21.3 [place] [address] [address] Sep, Hyperparathyroidism E21.3 ; Hypercholest erolemia E78.0 and Arthritis M19.90 [place] [address] [address] Aug, [place] [address] [address] Aug, Deficiency of other specified B group vi tamins E53.8 [place] [address] [address] Aug, [facility] [address] [address] Jul, Urinary frequency R35.0 [facility] [address] [address] Jul, Urinary frequency R35.0 [facility] [address] [address] Jul, [facility] [address] [address] Jul, [facility] [address] [address] Jun, Pain in left knee M25.562 [facility] [address] [address] Jun, [facility] [address] [address] May, Swelling of left knee joint M25.462 [facility] [address] [address] May, [facility] [address] [address] May, [facility] [address] [address] May, [facility] [address] [address] Apr, Renal insufficiency N28.9 and Chronic ki dney disease, stage 4 (severe) N18.4 [facility] [address] [address] Apr, Unspecified kidney failure N19 [facility] [address] [address] Apr, Unspecified kidney failure N19 [facility] [address] [address] Apr, [facility] [address] [address] Apr, Hyperparathyroidism, unspecified 252.00 [facility] [address] [address] Apr, [facility] [address] [address] Mar, [facility] [address] [address] Mar, [facility] [address] [address] Mar, Hyperparathyroidism, unspecified 252.00 [facility] [address] [address] Feb, [facility] [address] [address] Feb, Otalgia 388.70 [facility] [address] [address] Feb, [facility] [address] [address] Feb, [facility] [address] [address] Jan, [facility] [address] [address] Jan, Hyperparathyroidism, unspecified 252.00 [facility] [address] [address] Jan, [facility] [address] [address] Jan, Other B-complex deficiencies 266.2 and H yperparathyroidism, unspecified 252.00 [facility] [address] [address] Jan, [facility] [address] [address] Jan, [facility] [address] [id number] [place] [address] Jan, [facility] [id number] [place] [address] Dec, [facility] [address] [id number] [place] [address] Dec, [facility] [id number] [place] [address] Dec, [facility] [id number] [place] [address] Nov, Routine check-up V70.0 and Pre-op exam V 72.84 [facility] [id number] [place] [address] Nov, [facility] [id number] [place] [address] Nov, [facility] [id number] [place] [address] October, [facility] [id number] [place] [address] October, Other B-complex deficiencies 266.2 [facility] [id number] [place] [address] October, [facility] [id number] [place] [address] Sep, [facility] [id number] [place] [address] Sep, [facility] [id number] [place] [address] Aug, [facility] [id number] [place] [address] Aug, [facility] [id number] [place] [address] Aug, [facility] [id number] [place] [address] Aug, [facility] [address] [id number] [place] [address] Aug, 2014 [facility] [address] [id number] [place] [address] Aug, 2014 [facility] [address] [id number] [place] [address] Jul, 2014 [facility] [address] [id number] [place] [address] Jul, 2014 [facility] [address] [facility] [id number] [place] [address] Jul, 2014 [facility] [address] [id number] [place] [address] Jul, 2014 [facility] [address] [id number] [place] [address] Jul, 2014 [facility] [address] [id number] [place] [address] Jul, 2014 [facility] [address] [id number] [place] [address] Jul, 2014 [facility] [address] [id number] [place] [address] Jul, 2014 [facility] [address] [id number] [place] [address] Jul, 2014 [facility] [address] [id number] [place] [address] Jul, 2014 [facility] [address] [id number] [place] [address] Jul, 2014 [facility] [address] [id number] [place] [address] Jul, 2014 [facility] [address] [id number] [place] [address] Jul, 2014 [facility] [address] [id number] [place] [address] Jul, 2014 [facility] [address] [id number] [place] [address] Jun, [facility] [address] [id number] [place] [address] Jun, [facility] [address] [id number] [place] [address] Jun, [facility] [address] [id number] [place] [address] Jun, [facility] [address] [id number] [place] [address] Jun, [facility] [address] [id number] [place] [address] Jun, [facility] [address] [id number] [place] [address] Jun, [facility] [address] [id number] [place] [address] Jun, [facility] [address] [id number] [place] [address] Jun, [facility] [address] [id number] [place] [address] Jun, [facility] [address] [id number] [place] [address] Jun, [facility] [address] [id number] [place] [address] Jun, [facility] [address] [id number] [place] [address] Jun, [facility] [address] [id number] [place] [address] Jun, [facility] [address] [id number] [place] [address] May, [facility] [address] [id number] [place] [address] May, [facility] [address] [id number] [place] [address] May, [facility] [address] [facility] [id number] [place] [address] May, [facility] [address] [facility] [id number] [place] [address] Apr, [facility] [address] [id number] [place] [address] Apr, [facility] [address] [id number] [place] [address] Apr, [facility] [address] [facility] [id number] [place] [address] Apr, [facility] [address] [id number] [place] [address] Apr, [facility] [address] [id number] [place] [address] Apr, [facility] [address] [id number] [place] [address] Mar, [facility] [address] [id number] [place] [address] Mar, [facility] [address] [id number] [place] [address] Mar, [facility] [address] [id number] [place] [address] Mar, [facility] [address] [id number] [place] [address] 15 Mar, 2014 [facility] [address] [id number] [place] [address] 15 Mar, 2014 [facility] [address] [id number] [place] [address] Mar, [facility] [address] [id number] [place] [address] Mar, [facility] [address] [id number] [place] [address] Mar, [facility] [address] [id number] [place] [address] 07 Mar, 2013 [facility] [place] [facility] [address] [facility] [id number] [place] [address] Mar, [facility] [place] [facility] [address] [facility] [id number] [place] [address] Mar, [facility] [place] [facility] [address] [id number] [place] [address] Mar, [facility] [place] [facility] [address] [id number] [place] [address] Feb, [facility] [place] [facility] [address] [facility] [id number] [place] [address] Feb, [facility] [place] [facility] [address] [id number] [place] [address] Feb, [facility] [place] [facility] [address] [id number] [place] [address] Feb, [facility] [place] [facility] [address] [id number] [place] [address] Feb, [facility] [place] [facility] [address] [id number] [place] [address] Feb, [facility] [place] [facility] [address] [id number] [place] [address] Feb, [facility] [place] [facility] [address] [id number] [place] [address] Feb, [facility] [place] [facility] [address] [id number] [place] [address] Feb, [facility] [place] [facility] [address] [facility] [id number] [place] [address] Feb, [facility] [place] [facility] [address] [id number] [place] [address] Jan, [facility] [place] [facility] [address] [id number] [place] [address] Jan, [facility] [place] [facility] [address] [id number] [place] [address] Dec, [facility] [place] [facility] [address] [id number] [place] [address] Dec, [facility] [place] [facility] [address] [facility] [id number] [place] [address] Dec, [facility] [place] [facility] [address] [id number] [place] [address] Dec, [facility] [place] [facility] [address] [id number] [place] [address] Dec, [facility] [place] [facility] [address] [facility] [id number] [place] [address] Dec, [facility] [place] [facility] [address] [id number] [place] [address] Nov, [facility] [place] [facility] [address] [id number] [place] [address] Nov, [facility] [place] [facility] [address] [id number] [place] [address] Nov, [facility] [place] [facility] [address] [id number] [place] [address] Nov, [facility] [place] [facility] [address] [id number] [place] [address] October, [facility] [place] [facility] [address] [id number] [place] [address] October, [facility] [place] [facility] [address] [id number] [place] [address] October, [facility] [place] [facility] [address] [id number] [place] [address] October, [facility] [place] [facility] [address] [facility] [id number] [place] [address] October, [facility] [place] [facility] [address] [id number] [place] [address] October, [facility] [place] [facility] [address] [id number] [place] [address] October, [facility] [place] [facility] [address] [id number] [place] [address] October, [facility] [place] [facility] [address] [id number] [facility] [place] [address] October, [facility] [place] [facility] [address] [facility] [id number] [facility] [place] [address] October, [facility] [place] [facility] [address] [facility] [id number] [facility] [place] [address] October, [facility] [place] [facility] [address] [facility] [id number] [place] [address] October, [facility] [place] [facility] [address] [facility] [id number] [facility] [place] [address] October, [facility] [place] [facility] [address] [id number] [facility] [place] [address] October, [facility] [place] [facility] [address] [id number] [place] [address] October, [facility] [place] [facility] [address] [id number] [facility] [place] [place] [address] October, [facility] [place] [facility] [address] [facility] [id number] [facility] [place] [address] Sep, [facility] [place] [facility] [address] [id number] [facility] [place] [place] [address] Sep, [facility] [place] [facility] [address] [id number] [place] [address] Sep, [facility] [place] [facility] [address] [id number] [place] [address] Sep, [facility] [place] [facility] [address] [facility] [id number] [facility] [place] [address] Sep, [facility] [place] [facility] [address] [id number] [facility] [place] [address] Sep, [facility] [place] [facility] [address] [id number] [place] [address] Aug, [facility] [place] [facility] [address] [id number] [facility] [place] [address] Aug, [facility] [place] [facility] [address] [id number] [place] [address] Aug, [facility] [place] [facility] [address] [facility] [id number] [place] [address] Aug, [facility] [place] [facility] [address] [id number] [place] [address] Aug, [facility] [place] [facility] [address] [id number] [place] [address] Aug, [facility] [place] [facility] [address] [id number] [place] [address] Jul, [facility] [place] [facility] [address] [id number] [place] [address] Jul, [facility] [place] [facility] [address] [id number] [place] [address] Jul, [facility] [place] [facility] [address] [id number] [place] [address] Jul, [facility] [place] [facility] [address] [id number] [place] [address] Jun, [facility] [place] [facility] [address] [id number] [place] [address] Jun, [facility] [place] [facility] [address] [id number] [place] [address] May, [facility] [place] [facility] [address] [id number] [place] [address] May, [facility] [place] [facility] [address] [id number] [place] [address] May, [facility] [place] [facility] [address] [id number] [place] [address] May, [facility] [place] [facility] [address] [id number] [place] [address] May, [facility] [place] [facility] [address] [id number] [place] [address] Apr, [facility] [place] [facility] [address] [id number] [place] [address] Apr, [facility] [place] [facility] [address] [facility] [id number] [place] [address] Apr, [facility] [place] [facility] [address] [id number] [place] [address] Apr, [facility] [place] [facility] [address] [id number] [place] [address] Apr, [facility] [place] [facility] [address] [id number] [place] [address] 04 Apr, 2013 [facility] [place] [facility] [address] [id number] [place] [address] 15 Mar, 2013 [facility] [place] [facility] [address] [id number] [place] [address] 15 Mar, 2013 [facility] [place] [facility] [address] [id number] [place] [address] 14 Mar, 2013 [facility] [place] [facility] [address] [id number] [place] [address] 14 Mar, 2013 [facility] [place] [facility] [address] [id number] [place] [address] Mar, [facility] [place] [facility] [address] [id number] [place] [address] Mar, [facility] [place] [facility] [address] [id number] [place] [address] Feb, [facility] [place] [facility] [address] [id number] [place] [address] Feb, [facility] [place] [facility] [address] [id number] [place] [address] Feb, [facility] [place] [facility] [address] [facility] [id number] [place] [address] Jan, [facility] [place] [facility] [address] [id number] [place] [address] Jan, [facility] [place] [facility] [address] [id number] [place] [address] Jan, [facility] [place] [facility] [address] [id number] [place] [address] Jan, [facility] [place] [facility] [address] [facility] [id number] [facility] [place] [address] Jan, [facility] [place] [facility] [address] [facility] [id number] [facility] [place] [address] Jan, [facility] [place] [facility] [address] [id number] [place] [address] Dec, [facility] [place] [facility] [address] [facility] [id number] [facility] [place] [address] Dec, [facility] [place] [facility] [address] [facility] [id number] [facility] [place] [address] Dec, [facility] [place] [facility] [address] [id number] [place] [address] Dec, [facility] [place] [facility] [address] [id number] [place] [address] Dec, [facility] [place] [facility] [address] [id number] [place] [address] Dec, [facility] [place] [facility] [address] [id number] [place] [address] Nov, [facility] [place] [facility] [address] [id number] [place] [address] Nov, [facility] [place] [facility] [address] [id number] [place] [address] Nov, [facility] [place] [facility] [address] [id number] [place] [address] Nov, [facility] [place] [facility] [address] [id number] [place] [address] Nov, [facility] [place] [facility] [address] [id number] [place] [address] Nov, [facility] [place] [facility] [address] [id number] [place] [address] October, [facility] [place] [facility] [address] [id number] [place] [address] October, [facility] [place] [facility] [address] [id number] [place] [address] October, [facility] [place] [facility] [address] [facility] [id number] [place] [address] October, [facility] [place] [facility] [address] [id number] [place] [address] October, [facility] [place] [facility] [address] [id number] [place] [address] Sep, [facility] [place] [facility] [address] [id number] [place] [address] Sep, [facility] [place] [facility] [address] [id number] [place] [address] Sep, [facility] [place] [facility] [address] [id number] [place] [address] Sep, [facility] [place] [facility] [address] [id number] [place] [address] Sep, [facility] [place] [facility] [address] [id number] [place] [address] Aug, [facility] [place] [facility] [address] [id number] [place] [address] Aug, [facility] [place] [facility] [address] [id number] [place] [address] Aug, [facility] [place] [facility] [address] [id number] [place] [address] Jul, [facility] [place] [facility] [address] [id number] [place] [address] Jul, [facility] [place] [facility] [address] [id number] [place] [address] Jul, [facility] [place] [facility] [address] [id number] [place] [address] 08 Jul, 2012 [facility] [place] [facility] [address] [id number] [place] [address] 06 Jul, 2012 [facility] [place] [facility] [address] [id number] [place] [address] Jul, [facility] [place] [facility] [address] [id number] [place] [address] Jun, [facility] [place] [facility] [address] [id number] [place] [address] Apr, [facility] [place] [facility] [address] [id number] [place] [address] Apr, [facility] [place] [facility] [address] [id number] [place] [address] Apr, [facility] [place] [facility] [address] [id number] [place] [address] Apr, [facility] [place] [facility] [address] [id number] [place] [address] Mar, [facility] [place] [facility] [address] [id number] [place] [address] Mar, [facility] [place] [facility] [id number] [place] [address] Mar, [facility] [place] [facility] [address] [id number] [place] [address] Mar, [facility] [place] [facility] [address] [id number] [place] [address] Mar, [facility] [place] [facility] [address] [id number] [place] [address] Feb, [facility] [place] [facility] [address] [id number] [place] [address] Jan, [facility] [place] [facility] [address] [id number] [place] [address] Jan, [facility] [place] [facility] [address] [id number] [place] [address] Jan, [facility] [place] [facility] [address] [id number] [place] [address] Dec, [facility] [place] [facility] [address] [id number] [place] [address] Nov, [facility] [place] [facility] [address] [id number] [place] [address] Nov, [facility] [address] [id number] [place] [address] Nov, [facility] [address] [id number] [place] [address] Nov, [facility] [address] [id number] [place] [address] Nov, [facility] [address] [id number] [place] [address] October, [facility] [address] [id number] [place] [address] October, [facility] [address] [id number] [place] [address] October, [facility] [address] [id number] [place] [address] October, [facility] [address] [id number] [place] [address] October, IMMUNIZATIONS No Known Immunizations SOCIAL HISTORY Never Assessed REASON FOR VISIT PLAN OF CARE VITAL SIGNS Height 66 in 2013-10-18 Weight 270.31 lbs 2013-10-18 Temperature 97.9 degrees Fahrenheit 2013-10-18 Heart Rate 74 bpm 2013-10-18 Respiratory Rate 18 2013-10-18 Blood pressure systolic 120 mmHg 2013-10-18 Blood pressure diastolic 82 mmHg 2013-10-18 MEDICATIONS No Known Medications RESULTS No Results PROCEDURES Procedure Date Ordered Result Body Site MAMMOGRAM, SCREENING October 18, 2013 INSTRUCTIONS MEDICATIONS ADMINISTERED No Known Medications MEDICAL (GENERAL) HISTORY Type Description Date Medical History hypertension Medical History acid reflux Medical History osteoporosis Medical History Arthritis Medical History fibromyalgia Surgical History cholecystectomy 1969's Surgical History gastric bypass s Surgical History orthopedic surgery-left and right foot Surgical History arthroscopic knee surgery-left Surgical History Left knee meniscus repair 2009 Surgical History half of thyroid removed Jun 2016 Hospitalization History Hospitalization for surgery only
--- OUTSIDE RECORDS SUMMARY | 2020-01-25 07:38 | XMS REPORT ---
Author Author Velma CORDERO Organization [facility] Address [address] [place] [address] Care Team Providers Care Research Technician Name Role Phone STEPHAN CORDERO Unavailable PROBLEMS Type Condition ICD9-CM Code [id number] Code Onset Dates Condition S tatus SNOMED Code Problem Primary insomnia F51.01 Active 397 2004 Problem Hypercholesteremia E78.0 Active 1 5390358 Problem Corns L84 Active 004670318 Problem Arthritis M19.90 Active 2193640 Problem Hyperparathyroidism E21.3 Active 52537238 Problem 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 Active 75730167 Problem 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 Active 20015183 Problem BPV (benign positional vertigo), bilateral H81.13 Active 426188005 Problem Unspecified kidney failure N19 Act chip 70560149 Problem Myalgia M79.1 Active 82887858 Problem 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 Active 239351005 Problem Mood disorder F39 Active 627329 05 Problem Chronic kidney disease, stage 4 (severe) N18.4 Active 894287625 Problem Primary osteoarthritis of left knee M17.12 Active [id number] Problem Irritable bowel syndrome with both constipation and diarrh ea K58.2 Active 19487911 Problem Body mass index (BMI) of 40.0-44.9 in adult Z68.41 Active 572011328 ALLERGIES No Information ENCOUNTERS Encounter Location Date Diagnosis [facility] [address] [id number] [place] [address] Jun, Knee pain, left M25.562 [facility] [address] [id number] [place] [address] May, Arthritis M19.90 [facility] [address] [id number] [place] [address] Apr, Well woman exam without gynecological ex am Z00.00 and Screening for breast cancer Z12.39 [facility] [address] [address] Mar, Arthritis M19.90 [facility] [address] [address] Mar, Arthritis M19.90 [facility] [address] [address] Mar, [facility] [address] [address] Mar, Arthritis M19.90 and Encounter for immun ization Z23 [place] [address] [address] Feb, Arthritis M19.90 [place] [address] [address] Feb, [place] [address] [address] Feb, Other specified disorders of bone densit y and structure, unspecified site M85.80 [place] [address] [address] Jan, Arthritis M19.90 [facility] [address] [address] Dec, Arthritis M19.90 [facility] [address] [address] Nov, Inflammatory spondylopathy of sacral reg ion M46.98 [facility] [address] [address] Nov, [facility] [address] [address] Nov, Labyrinthitis of left ear H83.02 [facility] [address] [address] Nov, Arthritis M19.90 [facility] [address] [address] 15 Sep, 2018 Arthritis M19.90 [place] [address] [address] 08 Sep, 2018 Renal insufficiency N28.9 and Unspecifie d kidney failure N19 [place] [address] [address] 08 Sep, 2018 Renal insufficiency N28.9 and Unspecifie d kidney failure N19 [place] [address] [address] Sep, Arthritis M19.90 [place] [address] [address] Aug, Exercise counseling Z71.82 [place] [address] [address] Aug, [place] [address] [address] Jul, Labyrinthitis of left ear H83.02 [place] [address] [address] Jul, Labyrinthitis of left ear H83.02 [place] [address] [address] 19 Jul, 2018 Exercise counseling Z71.82 [place] [address] [address] 18 Jul, 2018 [place] [address] [address] 14 Jul, 2018 Arthritis M19.90 [place] [address] [address] 13 Jul, 2018 Encounter for Medicare annual wellness e xam Z00.00 ; Chronic kidney disease, stage 4 (severe) N18.4 ; Body mass index (BMI) of 40.0-44.9 in adult Z68.41 ; Hyperparathyroidism E21.3 and BMI 40.0-44.9, adult Z68.41 [place] [address] [address] 13 Jul, 2018 Encounter for Medicare annual wellness e xam Z00.00 ; Chronic kidney disease, stage 4 (severe) N18.4 ; Hyperparathyroidism E21.3 ; Body mass index (BMI) of 40.0-44.9 in adult Z68.41 and Encounter for immunization Z23 [address] [address] 11 Jul, 2018 Tail bone pain M53.3 [place] [address] [address] 29 Jun, 2018 Exercise counseling Z71.[address] [address] Jun, Labyrinthitis of left ear H83.[address] [address] Jun, Tail bone pain M53.3 ; Irritable bowel s yndrome with both constipation and diarrhea K58.2 and Dysfunction of left eustachian tube H69.82 [place] [address] [address] Jun, Exercise counseling Z71.82 [place] [address] [address] Jun, Arthritis M19.[address] [address] Jun, Irritable bowel syndrome with both const ipation and diarrhea K58.2 ; Tail bone pain M53.3 and Dysfunction of left eustachian tube H69.82 [place] [address] [address] Jun, Exercise counseling Z71.82 [place] [address] [address] Jun, Exercise counseling Z71.82 [place] [address] [address] Jun, Labyrinthitis of left ear H83.02 [facility] [address] [address] May, Exercise counseling Z71.82 [facility] [address] [address] May, Arthritis M19.90 [facility] [address] [address] May, Exercise counseling Z71.82 [facility] [address] [address] May, Exercise counseling Z71.82 [facility] [address] [address] May, Labyrinthitis of left ear H83.02 [facility] [address] [address] May, Exercise counseling Z71.82 [facility] [address] [address] Apr, Arthritis M19.90 [facility] [address] [address] Apr, Exercise counseling Z71.82 [facility] [address] [address] Apr, Exercise counseling Z71.82 [facility] [address] [address] Apr, Primary osteoarthritis of left knee M17. 12 [facility] [address] [address] 08 Apr, 2018 Labyrinthitis of left ear H83.02 [facility] [address] [address] Mar, Arthritis M19.90 [facility] [address] [address] Mar, [facility] [address] [address] Mar, Chronic kidney disease, stage 4 (severe) N18.4 [facility] [address] [address] Mar, Chronic kidney disease, stage 4 (severe) N18.4 [facility] [address] [address] Mar, Labyrinthitis of left ear H83.02 [facility] [address] [address] Mar, Chronic kidney disease, stage 4 (severe) N18.4 ; Knee pain, left anterior M25.562 ; 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 and Encounter for immunization Z23 [place] [address] [address] Mar, Arthritis M19.90 [place] [address] [address] Feb, Labyrinthitis of left ear H83.02 [place] [address] [address] Feb, Arthritis M19.90 [place] [address] [address] Jan, Labyrinthitis of left ear H83.02 [place] [address] [address] Jan, Arthritis M19.90 [facility] [address] [address] Dec, Labyrinthitis of left ear H83.02 [place] [address] [address] Nov, Arthritis M19.90 [facility] [address] [address] Nov, Labyrinthitis of left ear H83.02 [place] [address] [address] Nov, BMI 40.0-44.9, adult Z68.41 ; Chronic ki dney disease, stage 4 (severe) N18.4 and Acute right-sided thoracic back pain M54.6 [place] [address] [address] October, Labyrinthitis of left ear H83.02 and Art hritis M19.90 [place] [address] [address] Sep, BPV (benign positional vertigo), bilater al H81.13 ; Dysfunction of left eustachian tube H69.82 and BMI 40.0-44.9, adult Z68.41 [place] [address] [address] Sep, Labyrinthitis of left ear H83.02 and Art hritis M19.90 [place] [address] [address] Sep, [place] [address] [address] Sep, [place] [address] [address] Sep, Chronic kidney disease, stage 4 (severe) N18.4 [place] [address] [address] Sep, Chronic kidney disease, stage 4 (severe) N18.4 [place] [address] [address] Aug, Labyrinthitis of left ear H83.02 and Art hritis M19.90 [place] [address] [address] Aug, [place] [address] [address] Jul, [place] [address] [address] Jul, Arthritis M19.90 and Labyrinthitis of le ft ear H83.02 [place] [address] [address] 08 Jul, 2017 [place] [address] [address] Jun, [place] [address] [address] Jun, Arthritis M19.90 and Labyrinthitis of le ft ear H83.02 [place] [address] [address] Jun, Pre-op evaluation Z01.818 ; BMI 40.0-44. 9, adult Z68.41 and Encounter for immunization Z23 [place] [address] [address] May, Arthritis M19.90 and Labyrinthitis of le ft ear H83.02 [place] [address] [address] Apr, Labyrinthitis of left ear H83.02 [place] [address] [address] Apr, Arthritis M19.90 and Labyrinthitis of le ft ear H83.02 [place] [address] [address] Mar, Arthritis M19.90 and Labyrinthitis of le ft ear H83.02 [place] [address] [address] 05 Mar, 2017 Chronic kidney disease, stage 4 (severe) N18.4 [place] [address] [address] 06 Feb, 2017 Arthritis M19.90 and Labyrinthitis of le ft ear H83.02 [place] [address] [address] Jan, Labyrinthitis of left ear H83.02 and Def iciency 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 [facility] [address] [address] Dec, Arthritis M19.90 [facility] [address] [address] Dec, BPV (benign positional vertigo), bilater al H81.13 [facility] [address] [address] Dec, [place] [address] [address] Dec, [place] [address] [address] Dec, [place] [address] [address] Nov, Arthritis M19.90 and 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 [place] [address] [address] Nov, Arthritis M19.90 [place] [address] [address] Nov, Hyperparathyroidism E21.3 [place] [address] [address] October, [place] [address] [address] October, Hyperparathyroidism E21.3 [facility] [address] [address] October, [address] [address] October, Renal insufficiency N28.9 and Hyperparat hyroidism E21.3 [facility] [address] [address] October, [facility] [address] [address] October, Renal insufficiency N28.9 and Hyperparat hyroidism E21.3 [facility] [address] [address] October, Arthritis M19.90 [facility] [address] [address] Sep, [facility] [address] [address] Sep, Lumbar neuritis M54.16 ; Thoracic absces s J86.9 and 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 [place] [address] [address] Sep, [place] [address] [address] Aug, Arthritis M19.90 [place] [address] [address] Aug, Hyperparathyroidism E21.3 [place] [address] [address] Aug, Hyperparathyroidism E21.3 [facility] [address] [address] Aug, Arthritis M19.90 [place] [address] [address] Jul, Mass of throat R22.1 [facility] [address] [address] Jul, [facility] [address] [address] Jul, Arthritis M19.90 [facility] [address] [address] Jun, Arthritis M19.90 [facility] [address] [address] Jun, [facility] [address] [address] Jun, Renal insufficiency N28.9 and Parathyroi d 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 [facility] [address] [address] Jun, Medicare welcome exam Z00.00 ; Encounter for immunization Z23 ; Arthritis M19.90 ; Medicare annual wellness visit, initial Z00.00 ; Medicare annual wellness visit, subsequent Z00.00 and 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 [place] [address] [address] May, Renal insufficiency N28.9 and Parathyroi d 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 [place] [address] [address] May, Renal insufficiency N28.9 [place] [address] [address] May, Renal insufficiency N28.9 [place] [address] [address] May, [place] [address] [address] Apr, [place] [address] [address] Apr, [place] [address] [address] 14 Apr, 2016 Mass of throat R22.1 [facility] [address] [address] 10 Apr, 2016 [facility] [address] [address] 10 Apr, 2016 Mass of throat R22.1 [place] [address] [address] 04 Apr, 2016 Mass of throat R22.1 [place] [address] [address] Mar, [facility] [address] [address] Mar, [facility] [address] [address] Mar, [facility] [address] [address] Mar, 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 for immunization Z23 [place] [address] [address] Mar, [place] [address] [address] Mar, [place] [address] [address] Feb, Renal insufficiency N28.9 and Hyperparat hyroidism E21.3 [place] [address] [address] 19 Feb, 2016 [place] [address] [address] 15 Feb, 2016 Renal insufficiency N28.9 and Hyperparat hyroidism E21.3 [place] [address] [address] 14 Feb, 2016 [place] [address] [address] 12 Feb, 2016 [place] [address] [address] 09 Feb, 2016 [place] [address] [address] Jan, [place] [address] [address] Jan, Arthritis M19.90 ; Lumbago with sciatica , right side M54.41 and Other chronic pain G89.29 [place] [address] [address] Jan, [place] [address] [address] Dec, Arthritis M19.90 ; Lumbago with sciatica , right side M54.41 and Other chronic pain G89.29 [place] [address] [address] Nov, Deficiency of other specified B group vi tamins E53.8 ; Primary insomnia F51.01 ; Mood disorder F39 and Lumbago with sciatica, right side M54.41 [place] [address] [address] Nov, Hyperparathyroidism E21.3 [place] [address] [address] Nov, Unspecified kidney failure N19 and Hyper parathyroidism E21.3 [place] [address] [address] October, Hyperparathyroidism E21.3 [place] [address] [address] October, [place] [address] [address] October, Hyperparathyroidism E21.3 [place] [address] [address] October, Hyperparathyroidism E21.3 [place] [address] [address] Sep, Hyperparathyroidism E21.3 ; Hypercholest erolemia E78.0 and Arthritis M19.90 [place] [address] [address] Aug, [place] [address] [address] Aug, Deficiency of other specified B group vi tamins E53.8 [place] [address] [address] Aug, [facility] [address] [place] [id number] [place] [address] Jul, Urinary frequency R35.0 [facility] [address] [place] [id number] [place] [address] Jul, Urinary frequency R35.0 [facility] [address] [place] [id number] [place] [address] Jul, [facility] [address] [address] Jul, [facility] [address] [address] Jun, Pain in left knee M25.562 [facility] [address] [address] Jun, [facility] [address] [address] May, Swelling of left knee joint M25.462 [facility] [address] [address] May, [facility] [address] [address] May, [facility] [address] [address] May, [facility] [address] [address] Apr, Renal insufficiency N28.9 and Chronic ki dney disease, stage 4 (severe) N18.4 [facility] [address] [address] Apr, Unspecified kidney failure N19 [facility] [address] [address] Apr, Unspecified kidney failure N19 [facility] [address] [address] Apr, [facility] [address] [address] Apr, Hyperparathyroidism, unspecified 252.00 [facility] [address] [address] Apr, [facility] [address] [address] Mar, [facility] [address] [address] Mar, [facility] [address] [address] Mar, Hyperparathyroidism, unspecified 252.00 [facility] [address] [address] Feb, [facility] [address] [address] Feb, Otalgia 388.70 [facility] [address] [address] Feb, [facility] [address] [address] Feb, [facility] [address] [address] Jan, [facility] [address] [address] Jan, Hyperparathyroidism, unspecified 252.00 [facility] [address] [address] Jan, [facility] [address] [address] Jan, Other B-complex deficiencies 266.2 and H yperparathyroidism, unspecified 252.00 [facility] [address] [address] Jan, [facility] [address] [address] Jan, [facility] [address] [place] [address] [place] [address] Jan, [facility] [address] [id number] [place] [address] Dec, [facility] [address] [id number] [place] [address] Dec, [facility] [address] [place] [id number] [place] [address] Dec, [facility] [address] [place] [id number] [place] [address] Nov, Routine check-up V70.0 and Pre-op exam V 72.84 [facility] [address] [place] [id number] [place] [address] Nov, [facility] [address] [place] [id number] [place] [address] Nov, [facility] [address] [place] [id number] [place] [address] October, [facility] [address] [place] [id number] [place] [address] October, Other B-complex deficiencies 266.2 [facility] [address] [place] [address] [id number] [place] [address] October, [facility] [address] [place] [address] [id number] [place] [address] Sep, [facility] [address] [place] [address] [id number] [place] [address] Sep, [facility] [address] [place] [address] [id number] [place] [address] Aug, [facility] [address] [place] [address] [id number] [place] [address] Aug, [facility] [address] [place] [address] [id number] [place] [address] Aug, [facility] [address] [place] [id number] [place] [address] Aug, [facility] [address] [id number] [place] [address] Aug, 2014 [facility] [address] [id number] [place] [address] Aug, 2014 [facility] [address] [id number] [place] [address] Jul, 2014 [facility] [address] [id number] [place] [address] Jul, 2014 [facility] [address] [id number] [place] [address] Jul, 2014 [facility] [address] [id number] [place] [address] Jul, 2014 [facility] [address] [id number] [place] [address] Jul, 2014 [facility] [address] [id number] [place] [address] Jul, 2014 [facility] [address] [id number] [place] [address] Jul, 2014 [facility] [address] [id number] [place] [address] Jul, 2014 [facility] [address] [id number] [place] [address] Jul, 2014 [facility] [address] [id number] [place] [address] Jul, 2014 [facility] [address] [id number] [place] [address] Jul, 2014 [facility] [address] [id number] [place] [address] Jul, 2014 [facility] [address] [id number] [place] [address] Jul, 2014 [facility] [address] [id number] [place] [address] Jul, 2014 [facility] [address] [id number] [place] [address] Jun, [facility] [address] [id number] [place] [address] Jun, [facility] [address] [id number] [place] [address] Jun, [facility] [address] [id number] [place] [address] Jun, [facility] [address] [id number] [place] [address] Jun, [facility] [address] [id number] [place] [address] Jun, [facility] [address] [id number] [place] [address] Jun, [facility] [address] [id number] [place] [address] Jun, [facility] [address] [id number] [place] [address] Jun, [facility] [address] [id number] [place] [address] Jun, [facility] [address] [id number] [place] [address] Jun, [facility] [address] [id number] [place] [address] Jun, [facility] [address] [id number] [place] [address] Jun, [facility] [address] [id number] [place] [address] Jun, [facility] [address] [id number] [place] [address] May, [facility] [address] [id number] [place] [address] May, [facility] [address] [id number] [place] [address] May, [facility] [address] [id number] [place] [address] May, [facility] [address] [id number] [place] [address] Apr, [facility] [address] [id number] [place] [address] Apr, [facility] [address] [id number] [place] [address] Apr, [facility] [address] [id number] [place] [address] Apr, [facility] [address] [id number] [place] [address] Apr, [facility] [address] [id number] [place] [address] Apr, [facility] [address] [id number] [place] [address] Mar, [facility] [address] [id number] [place] [address] 24 Mar, 2014 [facility] [address] [id number] [place] [address] Mar, [facility] [address] [id number] [place] [address] Mar, [facility] [address] [facility] [id number] [place] [address] 15 Mar, 2014 [facility] [address] [id number] [place] [address] 15 Mar, 2014 [facility] [address] [id number] [place] [address] 13 Mar, 2014 [facility] [address] [id number] [place] [address] 13 Mar, 2014 [facility] [address] [id number] [place] [address] 07 Mar, 2014 [facility] [address] [id number] [place] [address] Mar, 2013 [facility] [address] [facility] [id number] [place] [address] Mar, 2013 [facility] [address] [facility] [id number] [place] [address] Mar, 2013 [facility] [address] [facility] [id number] [place] [address] Mar, [facility] [address] [facility] [id number] [place] [address] Feb, 2013 [facility] [address] [facility] [id number] [place] [address] Feb, 2013 [facility] [address] [id number] [place] [address] Feb, [facility] [address] [id number] [place] [address] Feb, 2013 [facility] [address] [id number] [place] [address] Feb, 2013 [facility] [address] [facility] [id number] [place] [address] Feb, 2013 [facility] [address] [id number] [place] [address] Feb, [facility] [address] [id number] [place] [address] Feb, 2013 [facility] [address] [id number] [place] [address] Feb, [facility] [address] [facility] [id number] [place] [address] Feb, [facility] [address] [facility] [id number] [place] [address] Jan, [facility] [address] [facility] [id number] [place] [address] Jan, [facility] [address] [id number] [place] [address] Dec, [facility] [address] [id number] [place] [address] Dec, [facility] [address] [id number] [place] [address] Dec, [facility] [address] [facility] [id number] [place] [address] Dec, [facility] [address] [id number] [place] [address] Dec, [facility] [address] [facility] [id number] [place] [address] Dec, [facility] [address] [facility] [id number] [place] [address] Nov, [facility] [address] [id number] [place] [address] Nov, [facility] [address] [id number] [place] [address] Nov, [facility] [address] [id number] [place] [address] Nov, [facility] [address] [facility] [id number] [place] [address] October, [facility] [address] [id number] [place] [address] October, [facility] [address] [id number] [place] [address] October, [facility] [address] [id number] [place] [address] October, [facility] [address] [facility] [id number] [place] [address] October, [facility] [address] [id number] [place] [address] October, [facility] [address] [id number] [place] [address] October, [facility] [address] [id number] [place] [address] October, [facility] [address] [id number] [place] [address] October, [facility] [address] [id number] [place] [address] October, [facility] [address] [id number] [place] [address] October, [facility] [address] [id number] [place] [address] October, [facility] [address] [id number] [place] [address] October, [facility] [address] [id number] [place] [address] October, [facility] [address] [id number] [place] [address] October, [facility] [address] [id number] [place] [address] October, [facility] [address] [id number] [place] [address] Sep, [facility] [address] [id number] [place] [address] Sep, [facility] [address] [id number] [place] [address] Sep, [facility] [address] [id number] [place] [address] Sep, [facility] [address] [id number] [place] [address] Sep, [facility] [address] [id number] [place] [address] Sep, [facility] [address] [id number] [place] [address] Aug, [facility] [address] [id number] [place] [address] Aug, [facility] [address] [id number] [place] [address] Aug, [facility] [address] [id number] [place] [address] Aug, [facility] [address] [id number] [place] [address] Aug, [facility] [address] [id number] [place] [address] Aug, [facility] [address] [id number] [place] [address] Jul, [facility] [address] [facility] [id number] [place] [address] Jul, [facility] [address] [id number] [place] [address] Jul, [facility] [address] [id number] [place] [address] Jul, [facility] [address] [id number] [place] [address] Jun, [facility] [address] [id number] [place] [address] Jun, [facility] [address] [id number] [place] [address] May, [facility] [address] [id number] [place] [address] May, [facility] [address] [id number] [place] [address] May, [facility] [address] [id number] [place] [address] May, [facility] [address] [id number] [place] [address] May, [facility] [address] [id number] [place] [address] Apr, [facility] [address] [id number] [place] [address] Apr, [facility] [address] [id number] [place] [address] Apr, [facility] [address] [facility] [id number] [place] [address] Apr, [facility] [address] [id number] [place] [address] Apr, [facility] [address] [id number] [place] [address] 04 Apr, 2013 [facility] [address] [id number] [place] [address] 15 Mar, 2013 [facility] [address] [id number] [place] [address] 15 Mar, 2013 [facility] [address] [id number] [place] [address] 14 Mar, 2013 [facility] [address] [id number] [place] [address] 14 Mar, 2013 [facility] [address] [id number] [place] [address] Mar, [facility] [address] [id number] [place] [address] Mar, [facility] [address] [id number] [place] [address] 23 Feb, 2013 [facility] [address] [id number] [place] [address] Feb, [facility] [address] [id number] [place] [address] 04 Feb, 2013 [facility] [address] [facility] [id number] [place] [address] 30 Jan, 2013 [facility] [address] [id number] [place] [address] Jan, [facility] [address] [id number] [place] [address] Jan, [facility] [address] [id number] [place] [address] Jan, [facility] [address] [facility] [id number] [place] [address] Jan, [facility] [address] [id number] [place] [address] Jan, [facility] [address] [facility] [id number] [place] [address] Dec, [facility] [address] [id number] [place] [address] Dec, [facility] [address] [facility] [id number] [place] [address] Dec, [facility] [address] [id number] [place] [address] Dec, [facility] [address] [id number] [place] [address] Dec, [facility] [address] [id number] [place] [address] Dec, [facility] [address] [id number] [place] [address] Nov, [facility] [address] [id number] [place] [address] Nov, [facility] [address] [id number] [place] [address] Nov, [facility] [address] [id number] [place] [address] Nov, [facility] [address] [id number] [place] [address] Nov, [facility] [address] [id number] [place] [address] Nov, [facility] [address] [id number] [place] [address] October, [facility] [address] [id number] [place] [address] October, [facility] [address] [id number] [place] [address] October, [facility] [address] [id number] [place] [address] October, [facility] [address] [id number] [place] [address] October, [facility] [address] [id number] [place] [address] Sep, [facility] [address] [id number] [place] [address] Sep, [facility] [address] [id number] [place] [address] Sep, [facility] [address] [id number] [place] [address] Sep, [facility] [address] [id number] [place] [address] Sep, [facility] [address] [id number] [place] [address] Aug, [facility] [address] [id number] [place] [address] Aug, [facility] [address] [id number] [place] [address] Aug, [facility] [address] [id number] [place] [address] Jul, [facility] [address] [id number] [place] [address] Jul, [facility] [address] [id number] [place] [address] Jul, [facility] [address] [id number] [place] [address] 08 Jul, 2012 [facility] [address] [id number] [place] [address] 06 Jul, 2012 [facility] [address] [id number] [place] [address] 05 Jul, 2012 [facility] [address] [id number] [place] [address] Jun, [facility] [address] [id number] [place] [address] Apr, [facility] [address] [id number] [place] [address] Apr, [facility] [id number] [place] [address] Apr, [facility] [address] [id number] [place] [address] Apr, [facility] [address] [id number] [place] [address] Mar, [facility] [address] [id number] [place] [address] Mar, [facility] [id number] [place] [address] Mar, [facility] [id number] [place] [address] Mar, [facility] [id number] [place] [address] Mar, [facility] [address] [id number] [place] [address] Feb, [facility] [address] [id number] [place] [address] Jan, [facility] [address] [id number] [place] [address] Jan, [facility] [address] [id number] [place] [address] Jan, [facility] [id number] [place] [address] Dec, [facility] [address] [id number] [place] [address] Nov, [facility] [id number] [place] [address] Nov, [facility] [address] [id number] [place] [address] Nov, [facility] [address] [id number] [place] [address] Nov, [facility] [address] [id number] [place] [address] Nov, [facility] [id number] [place] [address] October, [facility] [id number] [place] [address] October, [facility] [id number] [place] [address] October, [facility] [address] [id number] [place] [address] October, [facility] [address] [id number] [place] [address] October, IMMUNIZATIONS No Known Immunizations SOCIAL HISTORY [...]
--- OUTSIDE RECORDS SUMMARY | 2020-01-25 07:38 | XMS REPORT ---
Author Author Velma Bull Organization [facility] Address [address] [place] [address] Care Team Providers Care Pyroglazer Name Role Phone CAITLIN Bull Unavailable PROBLEMS Type Condition ICD9-CM Code ZZR72-[place] Code Onset Dates Condition S tatus SNOMED Code Problem Primary insomnia F51.01 Active 397 2004 Problem Hypercholesteremia E78.0 Active 1 6052884 Problem Corns L84 Active 188397735 Problem Arthritis M19.90 Active 1548681 Problem Hyperparathyroidism E21.3 Active 89236016 Problem 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 Active 95573093 Problem 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 Active 82923685 Problem BPV (benign positional vertigo), bilateral H81.13 Active 518191438 Problem Unspecified kidney failure N19 Act chip 50293328 Problem Myalgia M79.1 Active 19114420 Problem 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 Active 762020418 Problem Mood disorder F39 Active 840396 05 Problem Chronic kidney disease, stage 4 (severe) N18.4 Active 614997585 Problem Primary osteoarthritis of left knee M17.12 Active 545448953140750 Problem Irritable bowel syndrome with both constipation and diarrh ea K58.2 Active 32310773 Problem Body mass index (BMI) of 40.0-44.9 in adult Z68.41 Active 749707308 ALLERGIES No Information ENCOUNTERS Encounter Location Date Diagnosis [facility] [address] [id number] [place] [address] Jun, Knee pain, left M25.562 [facility] [address] [place] [id number] [place] [address] May, Arthritis M19.90 [facility] [address] [id number] [place] [address] Apr, Well woman exam without gynecological ex am Z00.00 and Screening for breast cancer Z12.39 [facility] [address] [address] Mar, Arthritis M19.90 [facility] [address] [address] Mar, Arthritis M19.90 [facility] [address] [address] Mar, [facility] [address] [address] Mar, Arthritis M19.90 and Encounter for immun ization Z23 [place] [address] [address] Feb, Arthritis M19.90 [place] [address] [address] Feb, [place] [address] [address] Feb, Other specified disorders of bone densit y and structure, unspecified site M85.80 [place] [address] [address] Jan, Arthritis M19.90 [place] [address] [address] Dec, Arthritis M19.90 [facility] [address] [address] Nov, Inflammatory spondylopathy of sacral reg ion M46.98 [facility] [address] [address] Nov, [facility] [address] [address] Nov, Labyrinthitis of left ear H83.02 [facility] [address] [address] Nov, Arthritis M19.90 [facility] [address] [address] 15 Sep, 2018 Arthritis M19.90 [place] [address] [address] 08 Sep, 2018 Renal insufficiency N28.9 and Unspecifie d kidney failure N19 [place] [address] [address] 08 Sep, 2018 Renal insufficiency N28.9 and Unspecifie d kidney failure N19 [place] [address] [address] 08 Sep, 2018 Arthritis M19.90 [place] [address] [address] Aug, Exercise counseling Z71.82 [place] [address] [address] Aug, [place] [address] [address] 27 Jul, 2018 Labyrinthitis of left ear H83.02 [place] [address] [address] Jul, Labyrinthitis of left ear H83.02 [place] [address] [address] 19 Jul, 2018 Exercise counseling Z71.82 [place] [address] [address] 18 Jul, 2018 [place] [address] [address] 14 Jul, 2018 Arthritis M19.90 [place] [address] [address] 13 Jul, 2018 Encounter for Medicare annual wellness e xam Z00.00 ; Chronic kidney disease, stage 4 (severe) N18.4 ; Body mass index (BMI) of 40.0-44.9 in adult Z68.41 ; Hyperparathyroidism E21.3 and BMI 40.0-44.9, adult Z68.41 [place] [address] [address] 13 Jul, 2018 Encounter for Medicare annual wellness e xam Z00.00 ; Chronic kidney disease, stage 4 (severe) N18.4 ; Hyperparathyroidism E21.3 ; Body mass index (BMI) of 40.0-44.9 in adult Z68.41 and Encounter for immunization Z23 [place] [address] [address] 11 Jul, 2018 Tail bone pain M53.3 [place] [address] [address] Jun, Exercise counseling Z71.[address] [address] Jun, Labyrinthitis of left ear H83.[address] [address] Jun, Tail bone pain M53.3 ; Irritable bowel s yndrome with both constipation and diarrhea K58.2 and Dysfunction of left eustachian tube H69.82 [place] [address] [address] Jun, Exercise counseling Z71.82 [place] [address] [address] Jun, Arthritis M19.[address] [address] Jun, Irritable bowel syndrome with both const ipation and diarrhea K58.2 ; Tail bone pain M53.3 and Dysfunction of left eustachian tube H69.82 [place] [address] [address] Jun, Exercise counseling Z71.82 [place] [address] [address] Jun, Exercise counseling Z71.82 [place] [address] [address] Jun, Labyrinthitis of left ear H83.02 [facility] [address] [address] May, Exercise counseling Z71.82 [facility] [address] [address] May, Arthritis M19.90 [facility] [address] [address] May, Exercise counseling Z71.82 [facility] [address] [address] May, Exercise counseling Z71.82 [place] [address] [address] May, Labyrinthitis of left ear H83.02 [place] [address] [address] May, Exercise counseling Z71.82 [facility] [address] [address] Apr, Arthritis M19.90 [place] [address] [address] Apr, Exercise counseling Z71.82 [place] [address] [address] Apr, Exercise counseling Z71.82 [place] [address] [address] Apr, Primary osteoarthritis of left knee M17. 12 [facility] [address] [address] Apr, Labyrinthitis of left ear H83.02 [facility] [address] [address] Mar, Arthritis M19.90 [facility] [address] [address] Mar, [place] [address] [address] Mar, Chronic kidney disease, stage 4 (severe) N18.4 [facility] [address] [address] Mar, Chronic kidney disease, stage 4 (severe) N18.4 [facility] [address] [address] Mar, Labyrinthitis of left ear H83.02 [place] [address] [address] Mar, Chronic kidney disease, stage 4 (severe) N18.4 ; Knee pain, left anterior M25.562 ; 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 and Encounter for immunization Z23 [place] [address] [address] Mar, Arthritis M19.90 [place] [address] [address] Feb, Labyrinthitis of left ear H83.02 [place] [address] [address] Feb, Arthritis M19.90 [facility] [address] [address] Jan, Labyrinthitis of left ear H83.02 [place] [address] [address] Jan, Arthritis M19.90 [facility] [address] [address] Dec, Labyrinthitis of left ear H83.02 [place] [address] [address] Nov, Arthritis M19.90 [facility] [address] [address] Nov, Labyrinthitis of left ear H83.02 [place] [address] [address] Nov, BMI 40.0-44.9, adult Z68.41 ; Chronic ki dney disease, stage 4 (severe) N18.4 and Acute right-sided thoracic back pain M54.6 [place] [address] [address] October, Labyrinthitis of left ear H83.02 and Art hritis M19.90 [place] [address] [address] Sep, BPV (benign positional vertigo), bilater al H81.13 ; Dysfunction of left eustachian tube H69.82 and BMI 40.0-44.9, adult Z68.41 [place] [address] [address] Sep, Labyrinthitis of left ear H83.02 and Art hritis M19.90 [place] [address] [address] Sep, [place] [address] [address] Sep, [place] [address] [address] Sep, Chronic kidney disease, stage 4 (severe) N18.4 [place] [address] [address] Sep, Chronic kidney disease, stage 4 (severe) N18.4 [place] [address] [address] Aug, Labyrinthitis of left ear H83.02 and Art hritis M19.90 [place] [address] [address] Aug, [place] [address] [address] Jul, [place] [address] [address] Jul, Arthritis M19.90 and Labyrinthitis of le ft ear H83.02 [place] [address] [address] Jul, [place] [address] [address] Jun, [place] [address] [address] Jun, Arthritis M19.90 and Labyrinthitis of le ft ear H83.02 [place] [address] [address] Jun, Pre-op evaluation Z01.818 ; BMI 40.0-44. 9, adult Z68.41 and Encounter for immunization Z23 [place] [address] [address] May, Arthritis M19.90 and Labyrinthitis of le ft ear H83.02 [place] [address] [address] Apr, Labyrinthitis of left ear H83.02 [place] [address] [address] Apr, Arthritis M19.90 and Labyrinthitis of le ft ear H83.02 [place] [address] [address] Mar, Arthritis M19.90 and Labyrinthitis of le ft ear H83.02 [place] [address] [address] Mar, Chronic kidney disease, stage 4 (severe) N18.4 [place] [address] [address] 06 Feb, 2017 Arthritis M19.90 and Labyrinthitis of le ft ear H83.02 [place] [address] [address] Jan, Labyrinthitis of left ear H83.02 and Def iciency 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 [place] [address] [address] Dec, Arthritis M19.90 [place] [address] [address] Dec, BPV (benign positional vertigo), bilater al H81.13 [place] [address] [address] Dec, [place] [address] [address] Dec, [place] [address] [address] Dec, [place] [address] [address] Nov, Arthritis M19.90 and 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 [place] [address] [address] Nov, Arthritis M19.90 [place] [address] [address] Nov, Hyperparathyroidism E21.3 [place] [address] [address] October, [place] [address] [address] October, Hyperparathyroidism E21.3 [place] [address] [address] October, [place] [address] [address] October, Renal insufficiency N28.9 and Hyperparat hyroidism E21.3 [place] [address] [address] October, [facility] [address] [address] October, Renal insufficiency N28.9 and Hyperparat hyroidism E21.3 [facility] [address] [address] October, Arthritis M19.90 [facility] [address] [address] Sep, [facility] [address] [address] Sep, Lumbar neuritis M54.16 ; Thoracic absces s J86.9 and 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 [facility] [address] [address] Sep, [facility] [address] [address] Aug, Arthritis M19.90 [facility] [address] [address] Aug, Hyperparathyroidism E21.3 [facility] [address] [address] Aug, Hyperparathyroidism E21.3 [facility] [address] [address] Aug, Arthritis M19.90 [facility] [address] [address] Jul, Mass of throat R22.1 [facility] [address] [address] Jul, [facility] [address] [address] Jul, Arthritis M19.90 [facility] [address] [address] Jun, Arthritis M19.90 [facility] [address] [address] Jun, [facility] [address] [address] Jun, Renal insufficiency N28.9 and Parathyroi d 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 [facility] [address] [address] Jun, Medicare welcome exam Z00.00 ; Encounter for immunization Z23 ; Arthritis M19.90 ; Medicare annual wellness visit, initial Z00.00 ; Medicare annual wellness visit, subsequent Z00.00 and 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 [place] [id number] [address] May, Renal insufficiency N28.9 and Parathyroi d 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 [place] [address] [address] May, Renal insufficiency N28.9 [place] [address] [address] May, Renal insufficiency N28.9 [facility] [address] [address] May, [place] [address] [address] Apr, [place] [address] [address] Apr, [place] [address] [address] 14 Apr, 2016 Mass of throat R22.1 [facility] [address] [address] 10 Apr, 2016 [facility] [address] [address] 10 Apr, 2016 Mass of throat R22.1 [place] [address] [address] 04 Apr, 2016 Mass of throat R22.1 [facility] [address] [address] Mar, [facility] [address] [address] Mar, [facility] [address] [address] Mar, [facility] [address] [address] Mar, 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 for immunization Z23 [place] [address] [address] Mar, [place] [address] [address] Mar, [place] [address] [address] 21 Feb, 2016 Renal insufficiency N28.9 and Hyperparat hyroidism E21.3 [place] [address] [address] 19 Feb, 2016 [facility] [address] [address] 15 Feb, 2016 Renal insufficiency N28.9 and Hyperparat hyroidism E21.3 [place] [address] [address] 14 Feb, 2016 [place] [address] [address] 12 Feb, 2016 [facility] [address] [address] 09 Feb, 2016 [place] [address] [address] Jan, [place] [address] [address] Jan, Arthritis M19.90 ; Lumbago with sciatica , right side M54.41 and Other chronic pain G89.29 [place] [address] [address] Jan, [place] [address] [address] Dec, Arthritis M19.90 ; Lumbago with sciatica , right side M54.41 and Other chronic pain G89.29 [place] [address] [address] Nov, Deficiency of other specified B group vi tamins E53.8 ; Primary insomnia F51.01 ; Mood disorder F39 and Lumbago with sciatica, right side M54.41 [place] [address] [address] Nov, Hyperparathyroidism E21.3 [place] [address] [address] Nov, Unspecified kidney failure N19 and Hyper parathyroidism E21.3 [place] [address] [address] October, Hyperparathyroidism E21.3 [place] [address] [address] October, [place] [address] [address] October, Hyperparathyroidism E21.3 [place] [address] [address] October, Hyperparathyroidism E21.3 [place] [address] [address] Sep, Hyperparathyroidism E21.3 ; Hypercholest erolemia E78.0 and Arthritis M19.90 [place] [address] [address] Aug, [place] [address] [address] Aug, Deficiency of other specified B group vi tamins E53.8 [place] [address] [address] Aug, [facility] [address] [address] Jul, Urinary frequency R35.0 [facility] [address] [address] Jul, Urinary frequency R35.0 [facility] [address] [address] Jul, [facility] [address] [address] Jul, [facility] [address] [address] Jun, Pain in left knee M25.562 [facility] [address] [address] Jun, [facility] [address] [address] May, Swelling of left knee joint M25.462 [facility] [address] [address] May, [facility] [address] [address] May, [facility] [address] [address] May, [facility] [address] [address] Apr, Renal insufficiency N28.9 and Chronic ki dney disease, stage 4 (severe) N18.4 [facility] [address] [address] Apr, Unspecified kidney failure N19 [facility] [address] [address] Apr, Unspecified kidney failure N19 [facility] [address] [address] Apr, [facility] [address] [address] Apr, Hyperparathyroidism, unspecified 252.00 [facility] [address] [address] Apr, [facility] [address] [address] Mar, [facility] [address] [address] Mar, [facility] [address] [address] Mar, Hyperparathyroidism, unspecified 252.00 [facility] [address] [address] Feb, [facility] [address] [address] Feb, Otalgia 388.70 [facility] [address] [address] Feb, [facility] [address] [address] Feb, [facility] [address] [address] Jan, [facility] [address] [address] Jan, Hyperparathyroidism, unspecified 252.00 [facility] [address] [address] Jan, [facility] [address] [address] Jan, Other B-complex deficiencies 266.2 and H yperparathyroidism, unspecified 252.00 [facility] [address] [address] Jan, [facility] [address] [address] Jan, [facility] [address] [id number] [place] [address] Jan, [facility] [address] [place] [id number] [place] [address] Dec, [facility] [address] [id number] [place] [address] Dec, [facility] [address] [id number] [place] [address] Dec, [facility] [address] [id number] [place] [address] Nov, Routine check-up V70.0 and Pre-op exam V 72.84 [facility] [id number] [place] [address] Nov, [facility] [address] [id number] [place] [address] Nov, [facility] [address] [place] [id number] [place] [address] October, [facility] [id number] [place] [address] October, Other B-complex deficiencies 266.2 [facility] [id number] [place] [address] October, [facility] [id number] [place] [address] Sep, [facility] [id number] [place] [address] Sep, [facility] [id number] [place] [address] Aug, [facility] [id number] [place] [address] Aug, [facility] [id number] [place] [address] Aug, [facility] [id number] [place] [address] Aug, [facility] [address] [id number] [place] [address] Aug, 2014 [facility] [address] [id number] [place] [address] Aug, 2014 [facility] [address] [id number] [place] [address] Jul, 2014 [facility] [address] [id number] [place] [address] Jul, 2014 [facility] [address] [facility] [id number] [place] [address] Jul, 2014 [facility] [address] [id number] [place] [address] Jul, 2014 [facility] [address] [id number] [place] [address] Jul, 2014 [facility] [address] [id number] [place] [address] Jul, 2014 [facility] [address] [id number] [place] [address] Jul, 2014 [facility] [address] [id number] [place] [address] Jul, 2014 [facility] [address] [id number] [place] [address] Jul, 2014 [facility] [address] [id number] [place] [address] Jul, 2014 [facility] [address] [id number] [place] [address] Jul, 2014 [facility] [address] [id number] [place] [address] Jul, 2014 [facility] [address] [id number] [place] [address] Jul, 2014 [facility] [address] [id number] [place] [address] Jul, 2014 [facility] [address] [id number] [place] [address] Jun, [facility] [address] [id number] [place] [address] Jun, [facility] [address] [id number] [place] [address] Jun, [facility] [address] [id number] [place] [address] Jun, [facility] [address] [id number] [place] [address] Jun, [facility] [address] [id number] [place] [address] Jun, [facility] [address] [id number] [place] [address] Jun, [facility] [address] [id number] [place] [address] Jun, [facility] [address] [id number] [place] [address] Jun, [facility] [address] [id number] [place] [address] Jun, [facility] [address] [id number] [place] [address] Jun, [facility] [address] [id number] [place] [address] Jun, [facility] [address] [id number] [place] [address] Jun, [facility] [address] [id number] [place] [address] Jun, [facility] [address] [id number] [place] [address] May, [facility] [address] [id number] [place] [address] May, [facility] [address] [id number] [place] [address] May, [facility] [address] [facility] [id number] [place] [address] May, [facility] [address] [facility] [id number] [place] [address] Apr, [facility] [place] [facility] [address] [id number] [place] [address] Apr, [facility] [place] [facility] [address] [id number] [place] [address] Apr, [facility] [place] [facility] [address] [facility] [id number] [place] [address] Apr, [facility] [place] [facility] [address] [id number] [place] [address] Apr, [facility] [place] [facility] [address] [id number] [place] [address] Apr, [facility] [place] [facility] [address] [id number] [place] [address] Mar, [facility] [place] [facility] [address] [id number] [place] [address] Mar, [facility] [place] [facility] [address] [id number] [place] [address] Mar, [facility] [place] [facility] [address] [id number] [place] [address] Mar, [facility] [place] [facility] [address] [id number] [place] [address] 15 Mar, 2014 [facility] [place] [facility] [address] [id number] [place] [address] 15 Mar, 2014 [facility] [place] [facility] [address] [id number] [place] [address] Mar, [facility] [place] [facility] [address] [id number] [place] [address] Mar, [facility] [place] [facility] [address] [id number] [place] [address] Mar, [facility] [place] [facility] [address] [id number] [place] [address] 07 Mar, 2013 [facility] [place] [facility] [address] [facility] [id number] [place] [address] Mar, [facility] [place] [facility] [address] [facility] [id number] [place] [address] Mar, [facility] [place] [facility] [address] [id number] [place] [address] Mar, [facility] [place] [facility] [address] [id number] [place] [address] Feb, [facility] [place] [facility] [address] [facility] [id number] [place] [address] Feb, [facility] [place] [facility] [address] [id number] [place] [address] Feb, [facility] [place] [facility] [address] [id number] [place] [address] Feb, [facility] [place] [facility] [address] [id number] [place] [address] Feb, [facility] [place] [facility] [address] [id number] [place] [address] Feb, [facility] [place] [facility] [address] [id number] [place] [address] Feb, [facility] [place] [facility] [address] [id number] [place] [address] Feb, [facility] [place] [facility] [address] [id number] [place] [address] Feb, [facility] [place] [facility] [address] [facility] [id number] [place] [address] Feb, [facility] [place] [facility] [address] [id number] [place] [address] Jan, [facility] [place] [facility] [address] [id number] [place] [address] Jan, [facility] [place] [facility] [address] [id number] [place] [address] Dec, [facility] [place] [facility] [address] [id number] [place] [address] Dec, [facility] [place] [facility] [address] [facility] [id number] [place] [address] Dec, [facility] [place] [facility] [address] [id number] [place] [address] Dec, [facility] [place] [facility] [address] [id number] [place] [address] Dec, [facility] [place] [facility] [address] [facility] [id number] [place] [address] Dec, [facility] [place] [facility] [address] [id number] [place] [address] Nov, [facility] [place] [facility] [address] [id number] [place] [address] Nov, [facility] [place] [facility] [address] [id number] [place] [address] Nov, [facility] [place] [facility] [address] [id number] [place] [address] Nov, [facility] [place] [facility] [address] [id number] [place] [address] October, [facility] [place] [facility] [address] [id number] [place] [address] October, [facility] [place] [facility] [address] [id number] [place] [address] October, [facility] [place] [facility] [address] [id number] [place] [address] October, [facility] [place] [facility] [address] [facility] [id number] [place] [address] October, [facility] [place] [facility] [address] [id number] [place] [address] October, [facility] [place] [facility] [address] [id number] [place] [address] October, [facility] [place] [facility] [address] [id number] [place] [address] October, [facility] [place] [facility] [address] [id number] [facility] [place] [address] October, [facility] [place] [facility] [address] [facility] [id number] [facility] [place] [address] October, [facility] [place] [facility] [address] [facility] [id number] [facility] [place] [address] October, [facility] [place] [facility] [address] [facility] [id number] [place] [address] October, [facility] [place] [facility] [address] [facility] [id number] [facility] [place] [address] October, [facility] [place] [facility] [address] [id number] [facility] [place] [address] October, [facility] [place] [facility] [address] [id number] [place] [address] October, [facility] [place] [facility] [address] [id number] [facility] [place] [address] October, [facility] [place] [facility] [address] [facility] [id number] [facility] [place] [address] Sep, [facility] [place] [facility] [address] [id number] [facility] [place] [address] Sep, [facility] [place] [facility] [address] [id number] [place] [address] Sep, [facility] [place] [facility] [address] [id number] [place] [address] Sep, [facility] [place] [facility] [address] [facility] [id number] [facility] [place] [address] Sep, [facility] [place] [facility] [address] [id number] [facility] [place] [address] Sep, [facility] [place] [facility] [address] [id number] [place] [address] Aug, [facility] [place] [facility] [address] [id number] [facility] [place] [address] Aug, [facility] [place] [facility] [address] [id number] [place] [address] Aug, [facility] [place] [facility] [address] [facility] [id number] [place] [address] Aug, [facility] [place] [facility] [address] [id number] [place] [address] Aug, [facility] [place] [facility] [address] [id number] [place] [address] Aug, [facility] [place] [facility] [address] [id number] [place] [address] Jul, [facility] [place] [facility] [address] [id number] [place] [address] Jul, [facility] [place] [facility] [address] [id number] [place] [address] Jul, [facility] [place] [facility] [address] [id number] [place] [address] Jul, [facility] [place] [facility] [address] [id number] [place] [address] Jun, [facility] [place] [facility] [address] [id number] [place] [address] Jun, [facility] [place] [facility] [address] [id number] [place] [address] May, [facility] [place] [facility] [address] [id number] [place] [address] May, [facility] [place] [facility] [address] [id number] [place] [address] May, [facility] [place] [facility] [address] [id number] [place] [address] May, [facility] [place] [facility] [address] [id number] [place] [address] May, [facility] [place] [facility] [address] [id number] [place] [address] Apr, [facility] [place] [facility] [address] [id number] [place] [address] Apr, [facility] [place] [facility] [address] [facility] [id number] [place] [address] Apr, [facility] [place] [facility] [address] [id number] [place] [address] Apr, [facility] [place] [facility] [address] [id number] [place] [address] Apr, [facility] [place] [facility] [address] [id number] [place] [address] 04 Apr, 2013 [facility] [place] [facility] [address] [id number] [place] [address] 15 Mar, 2013 [facility] [place] [facility] [address] [id number] [place] [address] 15 Mar, 2013 [facility] [place] [facility] [address] [id number] [place] [address] 14 Mar, 2013 [facility] [place] [facility] [address] [id number] [place] [address] 14 Mar, 2013 [facility] [place] [facility] [address] [id number] [place] [address] Mar, [facility] [place] [facility] [address] [id number] [place] [address] Mar, [facility] [place] [facility] [address] [id number] [place] [address] Feb, [facility] [place] [facility] [address] [id number] [place] [address] Feb, [facility] [place] [facility] [address] [id number] [place] [address] Feb, [facility] [place] [facility] [address] [facility] [id number] [place] [address] Jan, [facility] [place] [facility] [address] [id number] [place] [address] Jan, [facility] [place] [facility] [address] [id number] [place] [address] Jan, [facility] [place] [facility] [address] [id number] [place] [address] Jan, [facility] [place] [facility] [address] [facility] [id number] [facility] [place] [address] Jan, [facility] [place] [facility] [address] [facility] [id number] [facility] [place] [address] Jan, [facility] [place] [facility] [address] [id number] [place] [address] Dec, [facility] [place] [facility] [address] [facility] [id number] [facility] [place] [address] Dec, [facility] [place] [facility] [address] [facility] [id number] [facility] [place] [address] Dec, [facility] [place] [facility] [address] [id number] [place] [address] Dec, [facility] [place] [facility] [address] [id number] [place] [address] Dec, [facility] [place] [facility] [address] [id number] [place] [address] Dec, [facility] [place] [facility] [address] [id number] [place] [address] Nov, [facility] [place] [facility] [address] [id number] [place] [address] Nov, [facility] [place] [facility] [address] [id number] [place] [address] Nov, [facility] [place] [facility] [address] [id number] [place] [address] Nov, [facility] [place] [facility] [address] [id number] [place] [address] Nov, [facility] [place] [facility] [address] [id number] [place] [address] Nov, [facility] [place] [facility] [address] [id number] [place] [address] October, [facility] [place] [facility] [address] [id number] [place] [address] October, [facility] [place] [facility] [address] [id number] [place] [address] October, [facility] [place] [facility] [address] [facility] [id number] [place] [address] October, [facility] [place] [facility] [address] [id number] [place] [address] October, [facility] [place] [facility] [address] [id number] [place] [address] Sep, [facility] [place] [facility] [address] [id number] [place] [address] Sep, [facility] [place] [facility] [address] [id number] [place] [address] Sep, [facility] [place] [facility] [address] [id number] [place] [address] Sep, [facility] [place] [facility] [address] [id number] [place] [address] Sep, [facility] [place] [facility] [address] [id number] [place] [address] Aug, [facility] [place] [facility] [address] [id number] [place] [address] Aug, [facility] [place] [facility] [address] [id number] [place] [address] Aug, [facility] [place] [facility] [address] [id number] [place] [address] Jul, [facility] [place] [facility] [address] [id number] [place] [address] Jul, [facility] [place] [facility] [address] [id number] [place] [address] Jul, [facility] [place] [facility] [address] [id number] [place] [address] 08 Jul, 2012 [facility] [place] [facility] [address] [id number] [place] [address] 06 Jul, 2012 [facility] [place] [facility] [address] [id number] [place] [address] Jul, [facility] [place] [facility] [address] [id number] [place] [address] Jun, [facility] [place] [facility] [address] [id number] [place] [address] Apr, [facility] [place] [facility] [address] [id number] [place] [address] Apr, [facility] [place] [facility] [address] [id number] [place] [address] Apr, [facility] [place] [facility] [address] [id number] [place] [address] Apr, [facility] [place] [facility] [address] [id number] [place] [address] Mar, [facility] [place] [facility] [address] [id number] [place] [address] Mar, [facility] [place] [facility] [id number] [place] [address] Mar, [facility] [place] [facility] [address] [id number] [place] [address] Mar, [facility] [place] [facility] [address] [id number] [place] [address] Mar, [facility] [place] [facility] [address] [id number] [place] [address] Feb, [facility] [place] [facility] [address] [id number] [place] [address] Jan, [facility] [place] [facility] [address] [id number] [place] [address] Jan, [facility] [place] [facility] [address] [id number] [place] [address] Jan, [facility] [place] [facility] [address] [id number] [place] [address] Dec, [facility] [place] [facility] [address] [id number] [place] [address] Nov, [facility] [place] [facility] [address] [id number] [place] [address] Nov, [facility] [address] [id number] [place] [address] Nov, [facility] [address] [id number] [place] [address] Nov, [facility] [address] [id number] [place] [address] Nov, [facility] [address] [id number] [place] [address] October, [facility] [address] [id number] [place] [address] October, [facility] [address] [id number] [place] [address] October, [facility] [address] [id number] [place] [address] October, [facility] [address] [id number] [place] [address] October, IMMUNIZATIONS No Known Immunizations SOCIAL HISTORY Never Assessed REASON FOR VISIT PLAN OF CARE VITAL SIGNS MEDICATIONS No Known Medications RESULTS No Results PROCEDURES Procedure Date Ordered Result Body Site DXA BONE DENSITY, AXIAL November 07, 2013 US BONE DENSITY MEASURE November 07, 2013 INSTRUCTIONS MEDICATIONS ADMINISTERED No Known [...]
--- OUTSIDE RECORDS SUMMARY | 2020-01-25 07:39 | XMS REPORT ---
Author Author Velma CORDERO Organization [facility] Address [address] [place] [address] Care Team Providers Care Orthotist Prosthetist Name Role Phone STEPHAN CORDERO Unavailable PROBLEMS Type Condition ICD9-CM Code [id number] Code Onset Dates Condition S tatus SNOMED Code Problem Primary insomnia F51.01 Active 397 2004 Problem Hypercholesteremia E78.0 Active 1 3222249 Problem Corns L84 Active 207477743 Problem Arthritis M19.90 Active 6641673 Problem Hyperparathyroidism E21.3 Active 77546178 Problem 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 Active 53053066 Problem 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 Active 63996189 Problem BPV (benign positional vertigo), bilateral H81.13 Active 631816489 Problem Unspecified kidney failure N19 Act hcip 79219858 Problem Myalgia M79.1 Active 79976380 Problem 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 Active 769957151 Problem Mood disorder F39 Active 388996 05 Problem Chronic kidney disease, stage 4 (severe) N18.4 Active 517037302 Problem Primary osteoarthritis of left knee M17.12 Active 195402404180464 Problem Irritable bowel syndrome with both constipation and diarrh ea K58.2 Active 02359295 Problem Body mass index (BMI) of 40.0-44.9 in adult Z68.41 Active 316714163 ALLERGIES No Information ENCOUNTERS Encounter Location Date Diagnosis [facility] [id number] [place] [address] Jun, Knee pain, left M25.562 [facility] [id number] [place] [address] May, Arthritis M19.90 [facility] [id number] [place] [address] Apr, Well woman exam without gynecological ex am Z00.00 and Screening for breast cancer Z12.39 [facility] [address] [address] Mar, Arthritis M19.90 [facility] [address] [address] Mar, Arthritis M19.90 [facility] [address] [address] Mar, [facility] [address] [address] Mar, Arthritis M19.90 and Encounter for immun ization Z23 [place] [address] [address] Feb, Arthritis M19.90 [place] [address] [address] Feb, [place] [address] [address] Feb, Other specified disorders of bone densit y and structure, unspecified site M85.80 [place] [address] [address] Jan, Arthritis M19.90 [facility] [address] [address] Dec, Arthritis M19.90 [facility] [address] [address] Nov, Inflammatory spondylopathy of sacral reg ion M46.98 [facility] [address] [address] Nov, [facility] [address] [address] Nov, Labyrinthitis of left ear H83.02 [facility] [address] [address] Nov, Arthritis M19.90 [facility] [address] [address] 15 Sep, 2018 Arthritis M19.90 [place] [address] [address] 08 Sep, 2018 Renal insufficiency N28.9 and Unspecifie d kidney failure N19 [place] [address] [address] 08 Sep, 2018 Renal insufficiency N28.9 and Unspecifie d kidney failure N19 [place] [address] [address] Sep, Arthritis M19.90 [place] [address] [address] Aug, Exercise counseling Z71.82 [place] [address] [address] Aug, [place] [address] [address] Jul, Labyrinthitis of left ear H83.02 [place] [address] [address] Jul, Labyrinthitis of left ear H83.02 [place] [address] [address] 19 Jul, 2018 Exercise counseling Z71.82 [place] [address] [address] 18 Jul, 2018 [place] [address] [address] 14 Jul, 2018 Arthritis M19.90 [place] [address] [address] 13 Jul, 2018 Encounter for Medicare annual wellness e xam Z00.00 ; Chronic kidney disease, stage 4 (severe) N18.4 ; Body mass index (BMI) of 40.0-44.9 in adult Z68.41 ; Hyperparathyroidism E21.3 and BMI 40.0-44.9, adult Z68.41 [place] [address] [address] 13 Jul, 2018 Encounter for Medicare annual wellness e xam Z00.00 ; Chronic kidney disease, stage 4 (severe) N18.4 ; Hyperparathyroidism E21.3 ; Body mass index (BMI) of 40.0-44.9 in adult Z68.41 and Encounter for immunization Z23 [address] [address] 11 Jul, 2018 Tail bone pain M53.3 [place] [address] [address] 29 Jun, 2018 Exercise counseling Z71.[address] [address] Jun, Labyrinthitis of left ear H83.[address] [address] Jun, Tail bone pain M53.3 ; Irritable bowel s yndrome with both constipation and diarrhea K58.2 and Dysfunction of left eustachian tube H69.82 [place] [address] [address] Jun, Exercise counseling Z71.82 [place] [address] [address] Jun, Arthritis M19.[address] [address] Jun, Irritable bowel syndrome with both const ipation and diarrhea K58.2 ; Tail bone pain M53.3 and Dysfunction of left eustachian tube H69.82 [place] [address] [address] Jun, Exercise counseling Z71.82 [place] [address] [address] Jun, Exercise counseling Z71.82 [place] [address] [address] Jun, Labyrinthitis of left ear H83.02 [facility] [address] [address] May, Exercise counseling Z71.82 [facility] [address] [address] May, Arthritis M19.90 [facility] [address] [address] May, Exercise counseling Z71.82 [facility] [address] [address] May, Exercise counseling Z71.82 [facility] [address] [address] May, Labyrinthitis of left ear H83.02 [facility] [address] [address] May, Exercise counseling Z71.82 [facility] [address] [address] Apr, Arthritis M19.90 [facility] [address] [address] Apr, Exercise counseling Z71.82 [facility] [address] [address] Apr, Exercise counseling Z71.82 [facility] [address] [address] Apr, Primary osteoarthritis of left knee M17. 12 [facility] [address] [address] 08 Apr, 2018 Labyrinthitis of left ear H83.02 [facility] [address] [address] Mar, Arthritis M19.90 [facility] [address] [address] Mar, [facility] [address] [address] Mar, Chronic kidney disease, stage 4 (severe) N18.4 [facility] [address] [address] Mar, Chronic kidney disease, stage 4 (severe) N18.4 [facility] [address] [address] Mar, Labyrinthitis of left ear H83.02 [facility] [address] [address] Mar, Chronic kidney disease, stage 4 (severe) N18.4 ; Knee pain, left anterior M25.562 ; 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 and Encounter for immunization Z23 [place] [address] [address] Mar, Arthritis M19.90 [place] [address] [address] Feb, Labyrinthitis of left ear H83.02 [place] [address] [address] Feb, Arthritis M19.90 [place] [address] [address] Jan, Labyrinthitis of left ear H83.02 [place] [address] [address] Jan, Arthritis M19.90 [facility] [address] [address] Dec, Labyrinthitis of left ear H83.02 [place] [address] [address] Nov, Arthritis M19.90 [facility] [address] [address] Nov, Labyrinthitis of left ear H83.02 [place] [address] [address] Nov, BMI 40.0-44.9, adult Z68.41 ; Chronic ki dney disease, stage 4 (severe) N18.4 and Acute right-sided thoracic back pain M54.6 [place] [address] [address] October, Labyrinthitis of left ear H83.02 and Art hritis M19.90 [place] [address] [address] Sep, BPV (benign positional vertigo), bilater al H81.13 ; Dysfunction of left eustachian tube H69.82 and BMI 40.0-44.9, adult Z68.41 [place] [address] [address] Sep, Labyrinthitis of left ear H83.02 and Art hritis M19.90 [place] [address] [address] Sep, [place] [address] [address] Sep, [place] [address] [address] Sep, Chronic kidney disease, stage 4 (severe) N18.4 [place] [address] [address] Sep, Chronic kidney disease, stage 4 (severe) N18.4 [place] [address] [address] Aug, Labyrinthitis of left ear H83.02 and Art hritis M19.90 [place] [address] [address] Aug, [place] [address] [address] Jul, [place] [address] [address] Jul, Arthritis M19.90 and Labyrinthitis of le ft ear H83.02 [place] [address] [address] 08 Jul, 2017 [place] [address] [address] Jun, [place] [address] [address] Jun, Arthritis M19.90 and Labyrinthitis of le ft ear H83.02 [place] [address] [address] Jun, Pre-op evaluation Z01.818 ; BMI 40.0-44. 9, adult Z68.41 and Encounter for immunization Z23 [place] [address] [address] May, Arthritis M19.90 and Labyrinthitis of le ft ear H83.02 [place] [address] [address] Apr, Labyrinthitis of left ear H83.02 [place] [address] [address] Apr, Arthritis M19.90 and Labyrinthitis of le ft ear H83.02 [place] [address] [address] Mar, Arthritis M19.90 and Labyrinthitis of le ft ear H83.02 [place] [address] [address] 05 Mar, 2017 Chronic kidney disease, stage 4 (severe) N18.4 [place] [address] [address] 06 Feb, 2017 Arthritis M19.90 and Labyrinthitis of le ft ear H83.02 [place] [address] [address] Jan, Labyrinthitis of left ear H83.02 and Def iciency 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 [facility] [address] [address] Dec, Arthritis M19.90 [facility] [address] [address] Dec, BPV (benign positional vertigo), bilater al H81.13 [facility] [address] [address] Dec, [place] [address] [address] Dec, [place] [address] [address] Dec, [place] [address] [address] Nov, Arthritis M19.90 and 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 [place] [address] [address] Nov, Arthritis M19.90 [place] [address] [address] Nov, Hyperparathyroidism E21.3 [place] [address] [address] October, [place] [address] [address] October, Hyperparathyroidism E21.3 [facility] [address] [address] October, [address] [address] October, Renal insufficiency N28.9 and Hyperparat hyroidism E21.3 [facility] [address] [address] October, [facility] [address] [address] October, Renal insufficiency N28.9 and Hyperparat hyroidism E21.3 [facility] [address] [address] October, Arthritis M19.90 [facility] [address] [address] Sep, [facility] [address] [address] Sep, Lumbar neuritis M54.16 ; Thoracic absces s J86.9 and 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 [place] [address] [address] Sep, [place] [address] [address] Aug, Arthritis M19.90 [place] [address] [address] Aug, Hyperparathyroidism E21.3 [place] [address] [address] Aug, Hyperparathyroidism E21.3 [facility] [address] [address] Aug, Arthritis M19.90 [place] [address] [address] Jul, Mass of throat R22.1 [facility] [address] [address] Jul, [facility] [address] [address] Jul, Arthritis M19.90 [facility] [address] [address] Jun, Arthritis M19.90 [facility] [address] [address] Jun, [facility] [address] [address] Jun, Renal insufficiency N28.9 and Parathyroi d 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 [facility] [address] [address] Jun, Medicare welcome exam Z00.00 ; Encounter for immunization Z23 ; Arthritis M19.90 ; Medicare annual wellness visit, initial Z00.00 ; Medicare annual wellness visit, subsequent Z00.00 and 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 [place] [address] [address] May, Renal insufficiency N28.9 and Parathyroi d 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 [place] [address] [address] May, Renal insufficiency N28.9 [place] [address] [address] May, Renal insufficiency N28.9 [place] [address] [address] May, [place] [address] [address] Apr, [place] [address] [address] Apr, [place] [address] [address] 14 Apr, 2016 Mass of throat R22.1 [facility] [address] [address] 10 Apr, 2016 [facility] [address] [address] 10 Apr, 2016 Mass of throat R22.1 [place] [address] [address] 04 Apr, 2016 Mass of throat R22.1 [place] [address] [address] Mar, [facility] [address] [address] Mar, [facility] [address] [address] Mar, [facility] [address] [address] Mar, 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 for immunization Z23 [place] [address] [address] Mar, [place] [address] [address] Mar, [place] [address] [address] Feb, Renal insufficiency N28.9 and Hyperparat hyroidism E21.3 [place] [address] [address] 19 Feb, 2016 [place] [address] [address] 15 Feb, 2016 Renal insufficiency N28.9 and Hyperparat hyroidism E21.3 [place] [address] [address] 14 Feb, 2016 [place] [address] [address] 12 Feb, 2016 [place] [address] [address] 09 Feb, 2016 [place] [address] [address] Jan, [place] [address] [address] Jan, Arthritis M19.90 ; Lumbago with sciatica , right side M54.41 and Other chronic pain G89.29 [place] [address] [address] Jan, [place] [address] [address] Dec, Arthritis M19.90 ; Lumbago with sciatica , right side M54.41 and Other chronic pain G89.29 [place] [address] [address] Nov, Deficiency of other specified B group vi tamins E53.8 ; Primary insomnia F51.01 ; Mood disorder F39 and Lumbago with sciatica, right side M54.41 [place] [address] [address] Nov, Hyperparathyroidism E21.3 [place] [address] [address] Nov, Unspecified kidney failure N19 and Hyper parathyroidism E21.3 [place] [address] [address] October, Hyperparathyroidism E21.3 [place] [address] [address] October, [place] [address] [address] October, Hyperparathyroidism E21.3 [place] [address] [address] October, Hyperparathyroidism E21.3 [place] [address] [address] Sep, Hyperparathyroidism E21.3 ; Hypercholest erolemia E78.0 and Arthritis M19.90 [place] [address] [address] Aug, [place] [address] [address] Aug, Deficiency of other specified B group vi tamins E53.8 [place] [address] [address] Aug, [facility] [address] [place] [id number] [place] [address] Jul, Urinary frequency R35.0 [facility] [address] [place] [id number] [place] [address] Jul, Urinary frequency R35.0 [facility] [address] [place] [id number] [place] [address] Jul, [facility] [address] [address] Jul, [facility] [address] [address] Jun, Pain in left knee M25.562 [facility] [address] [address] Jun, [facility] [address] [address] May, Swelling of left knee joint M25.462 [facility] [address] [address] May, [facility] [address] [address] May, [facility] [address] [address] May, [facility] [address] [address] Apr, Renal insufficiency N28.9 and Chronic ki dney disease, stage 4 (severe) N18.4 [facility] [address] [address] Apr, Unspecified kidney failure N19 [facility] [address] [address] Apr, Unspecified kidney failure N19 [facility] [address] [address] Apr, [facility] [address] [address] Apr, Hyperparathyroidism, unspecified 252.00 [facility] [address] [address] Apr, [facility] [address] [address] Mar, [facility] [address] [address] Mar, [facility] [address] [address] Mar, Hyperparathyroidism, unspecified 252.00 [facility] [address] [address] Feb, [facility] [address] [address] Feb, Otalgia 388.70 [facility] [address] [address] Feb, [facility] [address] [address] Feb, [facility] [address] [address] Jan, [facility] [address] [address] Jan, Hyperparathyroidism, unspecified 252.00 [facility] [address] [address] Jan, [facility] [address] [address] Jan, Other B-complex deficiencies 266.2 and H yperparathyroidism, unspecified 252.00 [facility] [address] [address] Jan, [facility] [address] [address] Jan, [facility] [address] [place] [address] [place] [address] Jan, [facility] [id number] [place] [address] Dec, [facility] [id number] [place] [address] Dec, [facility] [id number] [place] [address] Dec, [facility] [id number] [place] [address] Nov, Routine check-up V70.0 and Pre-op exam V 72.84 [facility] [id number] [place] [address] Nov, [facility] [id number] [place] [address] Nov, [facility] [id number] [place] [address] October, [facility] [id number] [place] [address] October, Other B-complex deficiencies 266.2 [facility] [id number] [place] [address] October, [facility] [id number] [place] [address] Sep, [facility] [id number] [place] [address] Sep, [facility] [id number] [place] [address] Aug, [facility] [id number] [place] [address] Aug, [facility] [id number] [place] [address] Aug, [facility] [id number] [place] [address] Aug, [facility] [id number] [place] [address] Aug, 2014 [facility] [id number] [place] [address] Aug, 2014 [facility] [id number] [place] [address] Jul, 2014 [facility] [id number] [place] [address] Jul, 2014 [facility] [id number] [place] [address] Jul, 2014 [facility] [id number] [place] [address] Jul, 2014 [facility] [id number] [place] [address] Jul, 2014 [facility] [id number] [place] [address] Jul, 2014 [facility] [id number] [place] [address] Jul, 2014 [facility] [id number] [place] [address] Jul, 2014 [facility] [id number] [place] [address] Jul, 2014 [facility] [id number] [place] [address] Jul, 2014 [facility] [id number] [place] [address] Jul, 2014 [facility] [id number] [place] [address] Jul, 2014 [facility] [id number] [place] [address] Jul, 2014 [facility] [id number] [place] [address] Jul, 2014 [facility] [id number] [place] [address] Jun, [facility] [id number] [place] [address] Jun, [facility] [id number] [place] [address] Jun, [facility] [id number] [place] [address] Jun, [facility] [id number] [place] [address] Jun, [facility] [id number] [place] [address] Jun, [facility] [id number] [place] [address] Jun, [facility] [id number] [place] [address] Jun, [facility] [id number] [place] [address] Jun, [facility] [id number] [place] [address] Jun, [facility] [id number] [place] [address] Jun, [facility] [id number] [place] [address] Jun, [facility] [id number] [place] [address] Jun, [facility] [id number] [place] [address] Jun, [facility] [id number] [place] [address] May, [facility] [id number] [place] [address] May, [facility] [id number] [place] [address] May, [facility] [id number] [place] [address] May, [facility] [id number] [place] [address] Apr, [facility] [id number] [place] [address] Apr, [facility] [id number] [place] [address] Apr, [facility] [id number] [place] [address] Apr, [facility] [id number] [place] [address] Apr, [facility] [id number] [place] [address] Apr, [facility] [id number] [place] [address] Mar, [facility] [id number] [place] [address] 24 Mar, 2014 [facility] [id number] [place] [address] Mar, [facility] [id number] [place] [address] Mar, [facility] [id number] [place] [address] 15 Mar, 2014 [facility] [id number] [place] [address] 15 Mar, 2014 [facility] [id number] [place] [address] 13 Mar, 2014 [facility] [id number] [place] [address] 13 Mar, 2014 [facility] [id number] [place] [address] 07 Mar, 2014 [facility] [id number] [place] [address] Mar, 2013 [facility] [address] [facility] [id number] [place] [address] Mar, 2013 [facility] [address] [facility] [id number] [place] [address] Mar, 2013 [facility] [address] [facility] [id number] [place] [address] Mar, [facility] [address] [facility] [id number] [place] [address] Feb, 2013 [facility] [address] [facility] [id number] [place] [address] Feb, 2013 [facility] [id number] [place] [address] Feb, [facility] [id number] [place] [address] Feb, 2013 [facility] [id number] [place] [address] Feb, 2013 [facility] [address] [facility] [id number] [place] [address] Feb, 2013 [facility] [id number] [place] [address] Feb, [facility] [id number] [place] [address] Feb, 2013 [facility] [id number] [place] [address] Feb, [facility] [address] [facility] [id number] [place] [address] Feb, [facility] [address] [facility] [id number] [place] [address] Jan, [facility] [address] [facility] [id number] [place] [address] Jan, [facility] [id number] [place] [address] Dec, [facility] [id number] [place] [address] Dec, [facility] [address] [id number] [place] [address] Dec, [facility] [address] [facility] [id number] [place] [address] Dec, [facility] [id number] [place] [address] Dec, [facility] [address] [facility] [id number] [place] [address] Dec, [facility] [address] [facility] [id number] [place] [address] Nov, [facility] [id number] [place] [address] Nov, [facility] [id number] [place] [address] Nov, [facility] [id number] [place] [address] Nov, [facility] [address] [facility] [id number] [place] [address] October, [facility] [id number] [place] [address] October, [facility] [id number] [place] [address] October, [facility] [id number] [place] [address] October, [facility] [address] [facility] [id number] [place] [address] October, [facility] [address] [id number] [place] [address] October, [facility] [id number] [place] [address] October, [facility] [id number] [place] [address] October, [facility] [address] [id number] [place] [address] October, [facility] [id number] [place] [address] October, [facility] [id number] [place] [address] October, [facility] [id number] [place] [address] October, [facility] [id number] [place] [address] October, [facility] [id number] [place] [address] October, [facility] [id number] [place] [address] October, [facility] [id number] [place] [address] October, [facility] [id number] [place] [address] Sep, [facility] [id number] [place] [address] Sep, [facility] [id number] [place] [address] Sep, [facility] [id number] [place] [address] Sep, [facility] [id number] [place] [address] Sep, [facility] [id number] [place] [address] Sep, [facility] [address] [id number] [place] [address] Aug, [facility] [id number] [place] [address] Aug, [facility] [id number] [place] [address] Aug, [facility] [id number] [place] [address] Aug, [facility] [id number] [place] [address] Aug, [facility] [id number] [place] [address] Aug, [facility] [id number] [place] [address] Jul, [facility] [address] [facility] [id number] [place] [address] Jul, [facility] [id number] [place] [address] Jul, [facility] [id number] [place] [address] Jul, [facility] [id number] [place] [address] Jun, [facility] [id number] [place] [address] Jun, [facility] [id number] [place] [address] May, [facility] [id number] [place] [address] May, [facility] [id number] [place] [address] May, [facility] [id number] [place] [address] May, [facility] [id number] [place] [address] May, [facility] [id number] [place] [address] Apr, [facility] [id number] [place] [address] Apr, [facility] [id number] [place] [address] Apr, [facility] [address] [facility] [id number] [place] [address] Apr, [facility] [id number] [place] [address] Apr, [facility] [id number] [place] [address] 04 Apr, 2013 [facility] [id number] [place] [address] 15 Mar, 2013 [facility] [id number] [place] [address] 15 Mar, 2013 [facility] [id number] [place] [address] 14 Mar, 2013 [facility] [id number] [place] [address] 14 Mar, 2013 [facility] [id number] [place] [address] Mar, [facility] [id number] [place] [address] Mar, [facility] [id number] [place] [address] 23 Feb, 2013 [facility] [id number] [place] [address] Feb, [facility] [id number] [place] [address] 04 Feb, 2013 [facility] [address] [facility] [id number] [place] [address] 30 Jan, 2013 [facility] [id number] [place] [address] Jan, [facility] [id number] [place] [address] Jan, [facility] [id number] [place] [address] Jan, [facility] [address] [facility] [id number] [place] [address] Jan, [facility] [id number] [place] [address] Jan, [facility] [address] [facility] [id number] [place] [address] Dec, [facility] [id number] [place] [address] Dec, [facility] [address] [facility] [id number] [place] [address] Dec, [facility] [id number] [place] [address] Dec, [facility] [id number] [place] [address] Dec, [facility] [id number] [place] [address] Dec, [facility] [id number] [place] [address] Nov, [facility] [id number] [place] [address] Nov, [facility] [id number] [place] [address] Nov, [facility] [id number] [place] [address] Nov, [facility] [id number] [place] [address] Nov, [facility] [id number] [place] [address] Nov, [facility] [id number] [place] [address] October, [facility] [id number] [place] [address] October, [facility] [id number] [place] [address] October, [facility] [id number] [place] [address] October, [facility] [id number] [place] [address] October, [facility] [id number] [place] [address] Sep, [facility] [id number] [place] [address] Sep, [facility] [id number] [place] [address] Sep, [facility] [id number] [place] [address] Sep, [facility] [id number] [place] [address] Sep, [facility] [id number] [place] [address] Aug, [facility] [id number] [place] [address] Aug, [facility] [id number] [place] [address] Aug, [facility] [id number] [place] [address] Jul, [facility] [id number] [place] [address] Jul, [facility] [id number] [place] [address] Jul, [facility] [id number] [place] [address] 08 Jul, 2012 [facility] [id number] [place] [address] 06 Jul, 2012 [facility] [id number] [place] [address] 05 Jul, 2012 [facility] [id number] [place] [address] Jun, [facility] [id number] [place] [address] Apr, [facility] [id number] [place] [address] Apr, [facility] [id number] [place] [address] Apr, [facility] [id number] [place] [address] Apr, [facility] [id number] [place] [address] Mar, [facility] [id number] [place] [address] Mar, [facility] [id number] [place] [address] Mar, [facility] [id number] [place] [address] Mar, [facility] [id number] [place] [address] Mar, [facility] [id number] [place] [address] Feb, [facility] [id number] [place] [address] Jan, [facility] [id number] [place] [address] Jan, [facility] [id number] [place] [address] Jan, [facility] [id number] [place] [address] Dec, [facility] [id number] [place] [address] Nov, [facility] [id number] [place] [address] Nov, [facility] [id number] [place] [address] Nov, [facility] [id number] [place] [address] Nov, [facility] [id number] [place] [address] Nov, [facility] [id number] [place] [address] October, [facility] [address] [id number] [place] [address] October, [facility] [id number] [place] [address] October, [facility] [id number] [place] [address] October, [facility] [id number] [place] [address] October, IMMUNIZATIONS No Known Immunizations SOCIAL HISTORY Never Assessed REASON FOR VISIT PLAN OF CARE VITAL SIGNS Height 66 in 2014-01-18 Weight 265 lbs 2014-01-18 Temperature 97.6 degrees Fahrenheit 2014-01-18 Heart Rate 72 bpm 2014-01-18 Respiratory Rate 18 2014-01-18 Blood pressure systolic 106 mmHg 2014-01-18 Blood pressure diastolic 74 mmHg 2014-01-18 MEDICATIONS No Known Medications RESULTS No Results [...]
--- OUTSIDE RECORDS SUMMARY | 2020-01-25 07:39 | XMS REPORT ---
Author Author Velma CORDERO Organization [facility] Address [address] [place] [address] Care Team Providers Care Paper Final Inspector Name Role Phone STEPHAN CORDERO Unavailable PROBLEMS Type Condition ICD9-CM Code ZLZ89-BA Code Onset Dates Condition S tatus SNOMED Code Problem Primary insomnia F51.01 Active 397 2004 Problem Hypercholesteremia E78.0 Active 1 7856168 Problem Corns L84 Active 582788925 Problem Arthritis M19.90 Active 5778098 Problem Hyperparathyroidism E21.3 Active 98024483 Problem 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 Active 86991617 Problem 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 Active 38740160 Problem BPV (benign positional vertigo), bilateral H81.13 Active 221200595 Problem Unspecified kidney failure N19 Act chip 72673468 Problem Myalgia M79.1 Active 75651070 Problem 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 Active 526773811 Problem Mood disorder F39 Active 088801 05 Problem Chronic kidney disease, stage 4 (severe) N18.4 Active 547829124 Problem Primary osteoarthritis of left knee M17.12 Active 918553067915054 Problem Irritable bowel syndrome with both constipation and diarrh ea K58.2 Active 79621357 Problem Body mass index (BMI) of 40.0-44.9 in adult Z68.41 Active 246057593 ALLERGIES No Information ENCOUNTERS Encounter Location Date Diagnosis [facility] [address] [id number] [place] [address] Jun, Knee pain, left M25.562 [facility] [address] [id number] [place] [address] May, Arthritis M19.90 [facility] [address] [id number] [place] [address] Apr, Well woman exam without gynecological ex am Z00.00 and Screening for breast cancer Z12.39 [facility] [address] [address] Mar, Arthritis M19.90 [facility] [address] [address] Mar, Arthritis M19.90 [facility] [address] [address] Mar, [facility] [address] [address] Mar, Arthritis M19.90 and Encounter for immun ization Z23 [place] [address] [address] Feb, Arthritis M19.90 [place] [address] [address] Feb, [place] [address] [address] Feb, Other specified disorders of bone densit y and structure, unspecified site M85.80 [place] [address] [address] Jan, Arthritis M19.90 [facility] [address] [address] Dec, Arthritis M19.90 [facility] [address] [address] Nov, Inflammatory spondylopathy of sacral reg ion M46.98 [facility] [address] [address] Nov, [facility] [address] [address] Nov, Labyrinthitis of left ear H83.02 [facility] [address] [address] Nov, Arthritis M19.90 [facility] [address] [address] 15 Sep, 2018 Arthritis M19.90 [place] [address] [address] 08 Sep, 2018 Renal insufficiency N28.9 and Unspecifie d kidney failure N19 [place] [address] [address] 08 Sep, 2018 Renal insufficiency N28.9 and Unspecifie d kidney failure N19 [place] [address] [address] Sep, Arthritis M19.90 [place] [address] [address] Aug, Exercise counseling Z71.82 [place] [address] [address] Aug, [place] [address] [address] Jul, Labyrinthitis of left ear H83.02 [place] [address] [address] Jul, Labyrinthitis of left ear H83.02 [place] [address] [address] 19 Jul, 2018 Exercise counseling Z71.82 [place] [address] [address] 18 Jul, 2018 [place] [address] [address] 14 Jul, 2018 Arthritis M19.90 [place] [address] [address] 13 Jul, 2018 Encounter for Medicare annual wellness e xam Z00.00 ; Chronic kidney disease, stage 4 (severe) N18.4 ; Body mass index (BMI) of 40.0-44.9 in adult Z68.41 ; Hyperparathyroidism E21.3 and BMI 40.0-44.9, adult Z68.41 [place] [address] [address] 13 Jul, 2018 Encounter for Medicare annual wellness e xam Z00.00 ; Chronic kidney disease, stage 4 (severe) N18.4 ; Hyperparathyroidism E21.3 ; Body mass index (BMI) of 40.0-44.9 in adult Z68.41 and Encounter for immunization Z23 [address] [address] 11 Jul, 2018 Tail bone pain M53.3 [place] [address] [address] 29 Jun, 2018 Exercise counseling Z71.[address] [address] Jun, Labyrinthitis of left ear H83.[address] [address] Jun, Tail bone pain M53.3 ; Irritable bowel s yndrome with both constipation and diarrhea K58.2 and Dysfunction of left eustachian tube H69.82 [place] [address] [address] Jun, Exercise counseling Z71.82 [place] [address] [address] Jun, Arthritis M19.[address] [address] Jun, Irritable bowel syndrome with both const ipation and diarrhea K58.2 ; Tail bone pain M53.3 and Dysfunction of left eustachian tube H69.82 [place] [address] [address] Jun, Exercise counseling Z71.82 [place] [address] [address] Jun, Exercise counseling Z71.82 [place] [address] [address] Jun, Labyrinthitis of left ear H83.02 [facility] [address] [address] May, Exercise counseling Z71.82 [facility] [address] [address] May, Arthritis M19.90 [facility] [address] [address] May, Exercise counseling Z71.82 [facility] [address] [address] May, Exercise counseling Z71.82 [facility] [address] [address] May, Labyrinthitis of left ear H83.02 [facility] [address] [address] May, Exercise counseling Z71.82 [facility] [address] [address] Apr, Arthritis M19.90 [facility] [address] [address] Apr, Exercise counseling Z71.82 [facility] [address] [address] Apr, Exercise counseling Z71.82 [facility] [address] [address] Apr, Primary osteoarthritis of left knee M17. 12 [facility] [address] [address] 08 Apr, 2018 Labyrinthitis of left ear H83.02 [facility] [address] [address] Mar, Arthritis M19.90 [facility] [address] [address] Mar, [facility] [address] [address] Mar, Chronic kidney disease, stage 4 (severe) N18.4 [facility] [address] [address] Mar, Chronic kidney disease, stage 4 (severe) N18.4 [facility] [address] [address] Mar, Labyrinthitis of left ear H83.02 [facility] [address] [address] Mar, Chronic kidney disease, stage 4 (severe) N18.4 ; Knee pain, left anterior M25.562 ; 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 and Encounter for immunization Z23 [place] [address] [address] Mar, Arthritis M19.90 [place] [address] [address] Feb, Labyrinthitis of left ear H83.02 [place] [address] [address] Feb, Arthritis M19.90 [place] [address] [address] Jan, Labyrinthitis of left ear H83.02 [place] [address] [address] Jan, Arthritis M19.90 [facility] [address] [address] Dec, Labyrinthitis of left ear H83.02 [place] [address] [address] Nov, Arthritis M19.90 [facility] [address] [address] Nov, Labyrinthitis of left ear H83.02 [place] [address] [address] Nov, BMI 40.0-44.9, adult Z68.41 ; Chronic ki dney disease, stage 4 (severe) N18.4 and Acute right-sided thoracic back pain M54.6 [place] [address] [address] October, Labyrinthitis of left ear H83.02 and Art hritis M19.90 [place] [address] [address] Sep, BPV (benign positional vertigo), bilater al H81.13 ; Dysfunction of left eustachian tube H69.82 and BMI 40.0-44.9, adult Z68.41 [place] [address] [address] Sep, Labyrinthitis of left ear H83.02 and Art hritis M19.90 [place] [address] [address] Sep, [place] [address] [address] Sep, [place] [address] [address] Sep, Chronic kidney disease, stage 4 (severe) N18.4 [place] [address] [address] Sep, Chronic kidney disease, stage 4 (severe) N18.4 [place] [address] [address] Aug, Labyrinthitis of left ear H83.02 and Art hritis M19.90 [place] [address] [address] Aug, [place] [address] [address] Jul, [place] [address] [address] Jul, Arthritis M19.90 and Labyrinthitis of le ft ear H83.02 [place] [address] [address] 08 Jul, 2017 [place] [address] [address] Jun, [place] [address] [address] Jun, Arthritis M19.90 and Labyrinthitis of le ft ear H83.02 [place] [address] [address] Jun, Pre-op evaluation Z01.818 ; BMI 40.0-44. 9, adult Z68.41 and Encounter for immunization Z23 [place] [address] [address] May, Arthritis M19.90 and Labyrinthitis of le ft ear H83.02 [place] [address] [address] Apr, Labyrinthitis of left ear H83.02 [place] [address] [address] Apr, Arthritis M19.90 and Labyrinthitis of le ft ear H83.02 [place] [address] [address] Mar, Arthritis M19.90 and Labyrinthitis of le ft ear H83.02 [place] [address] [address] 05 Mar, 2017 Chronic kidney disease, stage 4 (severe) N18.4 [place] [address] [address] 06 Feb, 2017 Arthritis M19.90 and Labyrinthitis of le ft ear H83.02 [place] [address] [address] Jan, Labyrinthitis of left ear H83.02 and Def iciency 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 [facility] [address] [address] Dec, Arthritis M19.90 [facility] [address] [address] Dec, BPV (benign positional vertigo), bilater al H81.13 [facility] [address] [address] Dec, [place] [address] [address] Dec, [place] [address] [address] Dec, [place] [address] [address] Nov, Arthritis M19.90 and 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 [place] [address] [address] Nov, Arthritis M19.90 [place] [address] [address] Nov, Hyperparathyroidism E21.3 [place] [address] [address] October, [place] [address] [address] October, Hyperparathyroidism E21.3 [facility] [address] [address] October, [address] [address] October, Renal insufficiency N28.9 and Hyperparat hyroidism E21.3 [facility] [address] [address] October, [facility] [address] [address] October, Renal insufficiency N28.9 and Hyperparat hyroidism E21.3 [facility] [address] [address] October, Arthritis M19.90 [facility] [address] [address] Sep, [facility] [address] [address] Sep, Lumbar neuritis M54.16 ; Thoracic absces s J86.9 and 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 [place] [address] [address] Sep, [place] [address] [address] Aug, Arthritis M19.90 [place] [address] [address] Aug, Hyperparathyroidism E21.3 [place] [address] [address] Aug, Hyperparathyroidism E21.3 [facility] [address] [address] Aug, Arthritis M19.90 [place] [address] [address] Jul, Mass of throat R22.1 [facility] [address] [address] Jul, [facility] [address] [address] Jul, Arthritis M19.90 [facility] [address] [address] Jun, Arthritis M19.90 [facility] [address] [address] Jun, [facility] [address] [address] Jun, Renal insufficiency N28.9 and Parathyroi d 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 [facility] [address] [address] Jun, Medicare welcome exam Z00.00 ; Encounter for immunization Z23 ; Arthritis M19.90 ; Medicare annual wellness visit, initial Z00.00 ; Medicare annual wellness visit, subsequent Z00.00 and 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 [place] [address] [address] May, Renal insufficiency N28.9 and Parathyroi d 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 [place] [address] [address] May, Renal insufficiency N28.9 [place] [address] [address] May, Renal insufficiency N28.9 [place] [address] [address] May, [place] [address] [address] Apr, [place] [address] [address] Apr, [place] [address] [address] 14 Apr, 2016 Mass of throat R22.1 [facility] [address] [address] 10 Apr, 2016 [facility] [address] [address] 10 Apr, 2016 Mass of throat R22.1 [place] [address] [address] 04 Apr, 2016 Mass of throat R22.1 [place] [address] [address] Mar, [facility] [address] [address] Mar, [facility] [address] [address] Mar, [facility] [address] [address] Mar, 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 for immunization Z23 [place] [address] [address] Mar, [place] [address] [address] Mar, [place] [address] [address] Feb, Renal insufficiency N28.9 and Hyperparat hyroidism E21.3 [place] [address] [address] 19 Feb, 2016 [place] [address] [address] 15 Feb, 2016 Renal insufficiency N28.9 and Hyperparat hyroidism E21.3 [place] [address] [address] 14 Feb, 2016 [place] [address] [address] 12 Feb, 2016 [place] [address] [address] 09 Feb, 2016 [place] [address] [address] Jan, [place] [address] [address] Jan, Arthritis M19.90 ; Lumbago with sciatica , right side M54.41 and Other chronic pain G89.29 [place] [address] [address] Jan, [place] [address] [address] Dec, Arthritis M19.90 ; Lumbago with sciatica , right side M54.41 and Other chronic pain G89.29 [place] [address] [address] Nov, Deficiency of other specified B group vi tamins E53.8 ; Primary insomnia F51.01 ; Mood disorder F39 and Lumbago with sciatica, right side M54.41 [place] [address] [address] Nov, Hyperparathyroidism E21.3 [place] [address] [address] Nov, Unspecified kidney failure N19 and Hyper parathyroidism E21.3 [place] [address] [address] October, Hyperparathyroidism E21.3 [place] [address] [address] October, [place] [address] [address] October, Hyperparathyroidism E21.3 [place] [address] [address] October, Hyperparathyroidism E21.3 [place] [address] [address] Sep, Hyperparathyroidism E21.3 ; Hypercholest erolemia E78.0 and Arthritis M19.90 [place] [address] [address] Aug, [place] [address] [address] Aug, Deficiency of other specified B group vi tamins E53.8 [place] [address] [address] Aug, [facility] [address] [place] [id number] [place] [address] Jul, Urinary frequency R35.0 [facility] [address] [place] [id number] [place] [address] Jul, Urinary frequency R35.0 [facility] [address] [place] [id number] [place] [address] Jul, [facility] [address] [address] Jul, [facility] [address] [address] Jun, Pain in left knee M25.562 [facility] [address] [address] Jun, [facility] [address] [address] May, Swelling of left knee joint M25.462 [facility] [address] [address] May, [facility] [address] [address] May, [facility] [address] [address] May, [facility] [address] [address] Apr, Renal insufficiency N28.9 and Chronic ki dney disease, stage 4 (severe) N18.4 [facility] [address] [address] Apr, Unspecified kidney failure N19 [facility] [address] [address] Apr, Unspecified kidney failure N19 [facility] [address] [address] Apr, [facility] [address] [address] Apr, Hyperparathyroidism, unspecified 252.00 [facility] [address] [address] Apr, [facility] [address] [address] Mar, [facility] [address] [address] Mar, [facility] [address] [address] Mar, Hyperparathyroidism, unspecified 252.00 [facility] [address] [address] Feb, [facility] [address] [address] Feb, Otalgia 388.70 [facility] [address] [address] Feb, [facility] [address] [address] Feb, [facility] [address] [address] Jan, [facility] [address] [address] Jan, Hyperparathyroidism, unspecified 252.00 [facility] [address] [address] Jan, [facility] [address] [address] Jan, Other B-complex deficiencies 266.2 and H yperparathyroidism, unspecified 252.00 [facility] [address] [address] Jan, [facility] [address] [address] Jan, [facility] [address] [place] [address] [place] [address] Jan, [facility] [address] [id number] [place] [address] Dec, [facility] [address] [id number] [place] [address] Dec, [facility] [address] [id number] [place] [address] Dec, [facility] [id number] [place] [address] Nov, Routine check-up V70.0 and Pre-op exam V 72.84 [facility] [id number] [place] [address] Nov, [facility] [id number] [place] [address] Nov, [facility] [id number] [place] [address] October, [facility] [id number] [place] [address] October, Other B-complex deficiencies 266.2 [facility] [id number] [place] [address] October, [facility] [id number] [place] [address] Sep, [facility] [id number] [place] [address] Sep, [facility] [id number] [place] [address] Aug, [facility] [id number] [place] [address] Aug, [facility] [id number] [place] [address] Aug, [facility] [id number] [place] [address] Aug, [facility] [address] [id number] [place] [address] Aug, 2014 [facility] [address] [id number] [place] [address] Aug, 2014 [facility] [address] [id number] [place] [address] Jul, 2014 [facility] [address] [id number] [place] [address] Jul, 2014 [facility] [address] [id number] [place] [address] Jul, 2014 [facility] [address] [id number] [place] [address] Jul, 2014 [facility] [address] [id number] [place] [address] Jul, 2014 [facility] [address] [id number] [place] [address] Jul, 2014 [facility] [address] [id number] [place] [address] Jul, 2014 [facility] [address] [id number] [place] [address] Jul, 2014 [facility] [address] [id number] [place] [address] Jul, 2014 [facility] [address] [id number] [place] [address] Jul, 2014 [facility] [address] [id number] [place] [address] Jul, 2014 [facility] [address] [id number] [place] [address] Jul, 2014 [facility] [address] [id number] [place] [address] Jul, 2014 [facility] [address] [id number] [place] [address] Jul, 2014 [facility] [address] [id number] [place] [address] Jun, [facility] [address] [id number] [place] [address] Jun, [facility] [address] [id number] [place] [address] Jun, [facility] [address] [id number] [place] [address] Jun, [facility] [address] [id number] [place] [address] Jun, [facility] [address] [id number] [place] [address] Jun, [facility] [address] [id number] [place] [address] Jun, [facility] [address] [id number] [place] [address] Jun, [facility] [address] [id number] [place] [address] Jun, [facility] [address] [id number] [place] [address] Jun, [facility] [address] [id number] [place] [address] Jun, [facility] [address] [id number] [place] [address] Jun, [facility] [address] [id number] [place] [address] Jun, [facility] [address] [id number] [place] [address] Jun, [facility] [address] [facility] [id number] [place] [address] May, [facility] [address] [facility] [id number] [place] [address] May, [facility] [address] [id number] [place] [address] May, [facility] [address] [id number] [place] [address] May, [facility] [address] [id number] [place] [address] Apr, [facility] [address] [id number] [place] [address] Apr, [facility] [address] [id number] [place] [address] Apr, [facility] [address] [id number] [place] [address] Apr, [facility] [address] [id number] [place] [address] Apr, [facility] [address] [id number] [place] [address] Apr, [facility] [address] [id number] [place] [address] Mar, [facility] [address] [id number] [place] [address] 24 Mar, 2014 [facility] [address] [id number] [place] [address] Mar, [facility] [address] [id number] [place] [address] Mar, [facility] [address] [id number] [place] [address] 15 Mar, 2014 [facility] [address] [id number] [place] [address] 15 Mar, 2014 [facility] [address] [id number] [place] [address] 13 Mar, 2014 [facility] [address] [id number] [place] [address] 13 Mar, 2014 [facility] [address] [id number] [place] [address] 07 Mar, 2014 [facility] [address] [id number] [place] [address] Mar, 2013 [facility] [address] [facility] [id number] [place] [address] Mar, 2013 [facility] [address] [facility] [id number] [place] [address] Mar, 2013 [facility] [address] [facility] [id number] [place] [address] Mar, [facility] [address] [facility] [id number] [place] [address] Feb, 2013 [facility] [address] [facility] [id number] [place] [address] Feb, 2013 [facility] [address] [id number] [place] [address] Feb, [facility] [address] [id number] [place] [address] Feb, 2013 [facility] [address] [id number] [place] [address] Feb, 2013 [facility] [address] [facility] [id number] [place] [address] Feb, 2013 [facility] [address] [id number] [place] [address] Feb, [facility] [address] [id number] [place] [address] Feb, 2013 [facility] [address] [id number] [place] [address] Feb, [facility] [address] [facility] [id number] [place] [address] Feb, [facility] [address] [facility] [id number] [place] [address] Jan, [facility] [address] [facility] [id number] [place] [address] Jan, [facility] [address] [id number] [place] [address] Dec, [facility] [address] [id number] [place] [address] Dec, [facility] [address] [id number] [place] [address] Dec, [facility] [address] [facility] [id number] [place] [address] Dec, [facility] [address] [id number] [place] [address] Dec, [facility] [address] [facility] [id number] [place] [address] Dec, [facility] [address] [facility] [id number] [place] [address] Nov, [facility] [address] [id number] [place] [address] Nov, [facility] [address] [id number] [place] [address] Nov, [facility] [address] [id number] [place] [address] Nov, [facility] [address] [facility] [id number] [place] [address] October, [facility] [address] [id number] [place] [address] October, [facility] [address] [id number] [place] [address] October, [facility] [address] [id number] [place] [address] October, [facility] [address] [facility] [id number] [place] [address] October, [facility] [address] [id number] [place] [address] October, [facility] [address] [id number] [place] [address] October, [facility] [address] [id number] [place] [address] October, [facility] [address] [id number] [place] [address] October, [facility] [address] [id number] [place] [address] October, [facility] [address] [id number] [place] [address] October, [facility] [address] [id number] [place] [address] October, [facility] [address] [id number] [place] [address] October, [facility] [address] [id number] [place] [address] October, [facility] [address] [id number] [place] [address] October, [facility] [address] [id number] [place] [address] October, [facility] [address] [id number] [place] [address] Sep, [facility] [address] [id number] [place] [address] Sep, [facility] [address] [id number] [place] [address] Sep, [facility] [address] [id number] [place] [address] Sep, [facility] [address] [id number] [place] [address] Sep, [facility] [address] [id number] [place] [address] Sep, [facility] [address] [id number] [place] [address] Aug, [facility] [address] [id number] [place] [address] Aug, [facility] [address] [id number] [place] [address] Aug, [facility] [address] [id number] [place] [address] Aug, [facility] [address] [id number] [place] [address] Aug, [facility] [address] [id number] [place] [address] Aug, [facility] [address] [id number] [place] [address] Jul, [facility] [address] [facility] [id number] [place] [address] Jul, [facility] [address] [id number] [place] [address] Jul, [facility] [address] [id number] [place] [address] Jul, [facility] [address] [id number] [place] [address] Jun, [facility] [address] [id number] [place] [address] Jun, [facility] [address] [id number] [place] [address] May, [facility] [address] [id number] [place] [address] May, [facility] [address] [id number] [place] [address] May, [facility] [address] [id number] [place] [address] May, [facility] [address] [id number] [place] [address] May, [facility] [address] [id number] [place] [address] Apr, [facility] [address] [id number] [place] [address] Apr, [facility] [address] [id number] [place] [address] Apr, [facility] [address] [facility] [id number] [place] [address] Apr, [facility] [address] [id number] [place] [address] Apr, [facility] [address] [id number] [place] [address] 04 Apr, 2013 [facility] [address] [id number] [place] [address] 15 Mar, 2013 [facility] [address] [id number] [place] [address] 15 Mar, 2013 [facility] [address] [id number] [place] [address] 14 Mar, 2013 [facility] [address] [id number] [place] [address] 14 Mar, 2013 [facility] [address] [id number] [place] [address] Mar, [facility] [address] [id number] [place] [address] Mar, [facility] [address] [id number] [place] [address] 23 Feb, 2013 [facility] [address] [id number] [place] [address] Feb, [facility] [address] [id number] [place] [address] 04 Feb, 2013 [facility] [address] [facility] [id number] [place] [address] 30 Jan, 2013 [facility] [address] [id number] [place] [address] Jan, [facility] [address] [id number] [place] [address] Jan, [facility] [address] [id number] [place] [address] Jan, [facility] [address] [facility] [id number] [place] [address] Jan, [facility] [address] [id number] [place] [address] Jan, [facility] [address] [facility] [id number] [place] [address] Dec, [facility] [address] [id number] [place] [address] Dec, [facility] [address] [facility] [id number] [place] [address] Dec, [facility] [address] [id number] [place] [address] Dec, [facility] [address] [id number] [place] [address] Dec, [facility] [address] [id number] [place] [address] Dec, [facility] [address] [id number] [place] [address] Nov, [facility] [address] [id number] [place] [address] Nov, [facility] [address] [id number] [place] [address] Nov, [facility] [address] [id number] [place] [address] Nov, [facility] [address] [id number] [place] [address] Nov, [facility] [address] [id number] [place] [address] Nov, [facility] [address] [id number] [place] [address] October, [facility] [address] [id number] [place] [address] October, [facility] [address] [id number] [place] [address] October, [facility] [address] [id number] [facility] [place] [address] October, [facility] [address] [id number] [facility] [place] [address] October, [facility] [address] [id number] [facility] [place] [address] Sep, [facility] [address] [id number] [facility] [place] [address] Sep, [facility] [address] [id number] [facility] [place] [address] Sep, [facility] [address] [id number] [place] [address] Sep, [facility] [address] [id number] [place] [address] Sep, [facility] [address] [id number] [place] [address] Aug, [facility] [address] [id number] [place] [address] Aug, [facility] [address] [id number] [place] [address] Aug, [facility] [address] [id number] [place] [address] Jul, [facility] [address] [id number] [place] [address] Jul, [facility] [address] [id number] [place] [address] Jul, [facility] [address] [id number] [place] [address] 08 Jul, 2012 [facility] [address] [id number] [place] [address] 06 Jul, 2012 [facility] [address] [id number] [place] [address] 05 Jul, 2012 [facility] [address] [id number] [place] [address] Jun, [facility] [address] [id number] [place] [address] Apr, [facility] [address] [id number] [place] [address] Apr, [facility] [id number] [place] [address] Apr, [facility] [address] [id number] [place] [address] Apr, [facility] [address] [id number] [place] [address] Mar, [facility] [address] [id number] [place] [address] Mar, [facility] [id number] [place] [address] Mar, [facility] [id number] [place] [address] Mar, [facility] [id number] [place] [address] Mar, [facility] [address] [id number] [place] [address] Feb, [facility] [address] [id number] [place] [address] Jan, [facility] [address] [id number] [place] [address] Jan, [facility] [address] [id number] [place] [address] Jan, [facility] [id number] [place] [address] Dec, [facility] [address] [id number] [place] [address] Nov, [facility] [id number] [place] [address] Nov, [facility] [address] [id number] [place] [address] Nov, [facility] [address] [id number] [place] [address] Nov, [facility] [address] [id number] [place] [address] Nov, [facility] [id number] [place] [address] October, [facility] [id number] [place] [address] October, [facility] [id number] [place] [address] October, [facility] [address] [id number] [place] [address] October, [facility] [address] [id number] [place] [address] October, IMMUNIZATIONS No Known Immunizations SOCIAL HISTORY [...]
--- OUTSIDE RECORDS SUMMARY | 2020-01-25 07:40 | XMS REPORT ---
Author Author Velma CORDERO Organization [facility] Address [address] [place] [address] Care Team Providers Care Supervisor Baking Name Role Phone STEPHAN CORDERO Unavailable PROBLEMS Type Condition ICD9-CM Code KYY53-AS Code Onset Dates Condition S tatus SNOMED Code Problem Primary insomnia F51.01 Active 397 2004 Problem Hypercholesteremia E78.0 Active 1 7469911 Problem Corns L84 Active 162135465 Problem Arthritis M19.90 Active 1945724 Problem Hyperparathyroidism E21.3 Active 73244123 Problem 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 Active 73687557 Problem 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 Active 89931483 Problem BPV (benign positional vertigo), bilateral H81.13 Active 515828511 Problem Unspecified kidney failure N19 Act chip 69193400 Problem Myalgia M79.1 Active 12559410 Problem 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 Active 571316156 Problem Mood disorder F39 Active 942008 05 Problem Chronic kidney disease, stage 4 (severe) N18.4 Active 586972886 Problem Primary osteoarthritis of left knee M17.12 Active 211866432236186 Problem Irritable bowel syndrome with both constipation and diarrh ea K58.2 Active 26223748 Problem Body mass index (BMI) of 40.0-44.9 in adult Z68.41 Active 291694224 ALLERGIES No Information ENCOUNTERS Encounter Location Date Diagnosis [facility] [address] [id number] [place] [address] Jun, Knee pain, left M25.562 [facility] [address] [id number] [place] [address] May, Arthritis M19.90 [facility] [address] [id number] [place] [address] Apr, Well woman exam without gynecological ex am Z00.00 and Screening for breast cancer Z12.39 [facility] [address] [address] Mar, Arthritis M19.90 [facility] [address] [address] Mar, Arthritis M19.90 [facility] [address] [address] Mar, [facility] [address] [address] Mar, Arthritis M19.90 and Encounter for immun ization Z23 [place] [address] [address] Feb, Arthritis M19.90 [place] [address] [address] Feb, [place] [address] [address] Feb, Other specified disorders of bone densit y and structure, unspecified site M85.80 [place] [address] [address] Jan, Arthritis M19.90 [facility] [address] [address] Dec, Arthritis M19.90 [facility] [address] [address] Nov, Inflammatory spondylopathy of sacral reg ion M46.98 [facility] [address] [address] Nov, [facility] [address] [address] Nov, Labyrinthitis of left ear H83.02 [facility] [address] [address] Nov, Arthritis M19.90 [facility] [address] [address] 15 Sep, 2018 Arthritis M19.90 [place] [address] [address] 08 Sep, 2018 Renal insufficiency N28.9 and Unspecifie d kidney failure N19 [place] [address] [address] 08 Sep, 2018 Renal insufficiency N28.9 and Unspecifie d kidney failure N19 [place] [address] [address] Sep, Arthritis M19.90 [place] [address] [address] Aug, Exercise counseling Z71.82 [place] [address] [address] Aug, [place] [address] [address] Jul, Labyrinthitis of left ear H83.02 [place] [address] [address] Jul, Labyrinthitis of left ear H83.02 [place] [address] [address] 19 Jul, 2018 Exercise counseling Z71.82 [place] [address] [address] 18 Jul, 2018 [place] [address] [address] 14 Jul, 2018 Arthritis M19.90 [place] [address] [address] 13 Jul, 2018 Encounter for Medicare annual wellness e xam Z00.00 ; Chronic kidney disease, stage 4 (severe) N18.4 ; Body mass index (BMI) of 40.0-44.9 in adult Z68.41 ; Hyperparathyroidism E21.3 and BMI 40.0-44.9, adult Z68.41 [place] [address] [address] 13 Jul, 2018 Encounter for Medicare annual wellness e xam Z00.00 ; Chronic kidney disease, stage 4 (severe) N18.4 ; Hyperparathyroidism E21.3 ; Body mass index (BMI) of 40.0-44.9 in adult Z68.41 and Encounter for immunization Z23 [address] [address] 11 Jul, 2018 Tail bone pain M53.3 [place] [address] [address] 29 Jun, 2018 Exercise counseling Z71.[address] [address] Jun, Labyrinthitis of left ear H83.[address] [address] Jun, Tail bone pain M53.3 ; Irritable bowel s yndrome with both constipation and diarrhea K58.2 and Dysfunction of left eustachian tube H69.82 [place] [address] [address] Jun, Exercise counseling Z71.82 [place] [address] [address] Jun, Arthritis M19.[address] [address] Jun, Irritable bowel syndrome with both const ipation and diarrhea K58.2 ; Tail bone pain M53.3 and Dysfunction of left eustachian tube H69.82 [place] [address] [address] Jun, Exercise counseling Z71.82 [place] [address] [address] Jun, Exercise counseling Z71.82 [place] [address] [address] Jun, Labyrinthitis of left ear H83.02 [facility] [address] [address] May, Exercise counseling Z71.82 [facility] [address] [address] May, Arthritis M19.90 [facility] [address] [address] May, Exercise counseling Z71.82 [facility] [address] [address] May, Exercise counseling Z71.82 [facility] [address] [address] May, Labyrinthitis of left ear H83.02 [facility] [address] [address] May, Exercise counseling Z71.82 [facility] [address] [address] Apr, Arthritis M19.90 [facility] [address] [address] Apr, Exercise counseling Z71.82 [facility] [address] [address] Apr, Exercise counseling Z71.82 [facility] [address] [address] Apr, Primary osteoarthritis of left knee M17. 12 [facility] [address] [address] 08 Apr, 2018 Labyrinthitis of left ear H83.02 [facility] [address] [address] Mar, Arthritis M19.90 [facility] [address] [address] Mar, [facility] [address] [address] Mar, Chronic kidney disease, stage 4 (severe) N18.4 [facility] [address] [address] Mar, Chronic kidney disease, stage 4 (severe) N18.4 [facility] [address] [address] Mar, Labyrinthitis of left ear H83.02 [facility] [address] [address] Mar, Chronic kidney disease, stage 4 (severe) N18.4 ; Knee pain, left anterior M25.562 ; 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 and Encounter for immunization Z23 [place] [address] [address] Mar, Arthritis M19.90 [place] [address] [address] Feb, Labyrinthitis of left ear H83.02 [place] [address] [address] Feb, Arthritis M19.90 [place] [address] [address] Jan, Labyrinthitis of left ear H83.02 [place] [address] [address] Jan, Arthritis M19.90 [facility] [address] [address] Dec, Labyrinthitis of left ear H83.02 [place] [address] [address] Nov, Arthritis M19.90 [facility] [address] [address] Nov, Labyrinthitis of left ear H83.02 [place] [address] [address] Nov, BMI 40.0-44.9, adult Z68.41 ; Chronic ki dney disease, stage 4 (severe) N18.4 and Acute right-sided thoracic back pain M54.6 [place] [address] [address] October, Labyrinthitis of left ear H83.02 and Art hritis M19.90 [place] [address] [address] Sep, BPV (benign positional vertigo), bilater al H81.13 ; Dysfunction of left eustachian tube H69.82 and BMI 40.0-44.9, adult Z68.41 [place] [address] [address] Sep, Labyrinthitis of left ear H83.02 and Art hritis M19.90 [place] [address] [address] Sep, [place] [address] [address] Sep, [place] [address] [address] Sep, Chronic kidney disease, stage 4 (severe) N18.4 [place] [address] [address] Sep, Chronic kidney disease, stage 4 (severe) N18.4 [place] [address] [address] Aug, Labyrinthitis of left ear H83.02 and Art hritis M19.90 [place] [address] [address] Aug, [place] [address] [address] Jul, [place] [address] [address] Jul, Arthritis M19.90 and Labyrinthitis of le ft ear H83.02 [place] [address] [address] 08 Jul, 2017 [place] [address] [address] Jun, [place] [address] [address] Jun, Arthritis M19.90 and Labyrinthitis of le ft ear H83.02 [place] [address] [address] Jun, Pre-op evaluation Z01.818 ; BMI 40.0-44. 9, adult Z68.41 and Encounter for immunization Z23 [place] [address] [address] May, Arthritis M19.90 and Labyrinthitis of le ft ear H83.02 [place] [address] [address] Apr, Labyrinthitis of left ear H83.02 [place] [address] [address] Apr, Arthritis M19.90 and Labyrinthitis of le ft ear H83.02 [place] [address] [address] Mar, Arthritis M19.90 and Labyrinthitis of le ft ear H83.02 [place] [address] [address] 05 Mar, 2017 Chronic kidney disease, stage 4 (severe) N18.4 [place] [address] [address] 06 Feb, 2017 Arthritis M19.90 and Labyrinthitis of le ft ear H83.02 [place] [address] [address] Jan, Labyrinthitis of left ear H83.02 and Def iciency 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 [facility] [address] [address] Dec, Arthritis M19.90 [facility] [address] [address] Dec, BPV (benign positional vertigo), bilater al H81.13 [facility] [address] [address] Dec, [place] [address] [address] Dec, [place] [address] [address] Dec, [place] [address] [address] Nov, Arthritis M19.90 and 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 [place] [address] [address] Nov, Arthritis M19.90 [place] [address] [address] Nov, Hyperparathyroidism E21.3 [place] [address] [address] October, [place] [address] [address] October, Hyperparathyroidism E21.3 [facility] [address] [address] October, [address] [address] October, Renal insufficiency N28.9 and Hyperparat hyroidism E21.3 [facility] [address] [address] October, [facility] [address] [address] October, Renal insufficiency N28.9 and Hyperparat hyroidism E21.3 [facility] [address] [address] October, Arthritis M19.90 [facility] [address] [address] Sep, [facility] [address] [address] Sep, Lumbar neuritis M54.16 ; Thoracic absces s J86.9 and 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 [place] [address] [address] Sep, [place] [address] [address] Aug, Arthritis M19.90 [place] [address] [address] Aug, Hyperparathyroidism E21.3 [place] [address] [address] Aug, Hyperparathyroidism E21.3 [facility] [address] [address] Aug, Arthritis M19.90 [place] [address] [address] Jul, Mass of throat R22.1 [facility] [address] [address] Jul, [facility] [address] [address] Jul, Arthritis M19.90 [facility] [address] [address] Jun, Arthritis M19.90 [facility] [address] [address] Jun, [facility] [address] [address] Jun, Renal insufficiency N28.9 and Parathyroi d 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 [facility] [address] [address] Jun, Medicare welcome exam Z00.00 ; Encounter for immunization Z23 ; Arthritis M19.90 ; Medicare annual wellness visit, initial Z00.00 ; Medicare annual wellness visit, subsequent Z00.00 and 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 [place] [address] [address] May, Renal insufficiency N28.9 and Parathyroi d 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 [place] [address] [address] May, Renal insufficiency N28.9 [place] [address] [address] May, Renal insufficiency N28.9 [place] [address] [address] May, [place] [address] [address] Apr, [place] [address] [address] Apr, [place] [address] [address] 14 Apr, 2016 Mass of throat R22.1 [facility] [address] [address] 10 Apr, 2016 [facility] [address] [address] 10 Apr, 2016 Mass of throat R22.1 [place] [address] [address] 04 Apr, 2016 Mass of throat R22.1 [place] [address] [address] Mar, [facility] [address] [address] Mar, [facility] [address] [address] Mar, [facility] [address] [address] Mar, 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 for immunization Z23 [place] [address] [address] Mar, [place] [address] [address] Mar, [place] [address] [address] Feb, Renal insufficiency N28.9 and Hyperparat hyroidism E21.3 [place] [address] [address] 19 Feb, 2016 [place] [address] [address] 15 Feb, 2016 Renal insufficiency N28.9 and Hyperparat hyroidism E21.3 [place] [address] [address] 14 Feb, 2016 [place] [address] [address] 12 Feb, 2016 [place] [address] [address] 09 Feb, 2016 [place] [address] [address] Jan, [place] [address] [address] Jan, Arthritis M19.90 ; Lumbago with sciatica , right side M54.41 and Other chronic pain G89.29 [place] [address] [address] Jan, [place] [address] [address] Dec, Arthritis M19.90 ; Lumbago with sciatica , right side M54.41 and Other chronic pain G89.29 [place] [address] [address] Nov, Deficiency of other specified B group vi tamins E53.8 ; Primary insomnia F51.01 ; Mood disorder F39 and Lumbago with sciatica, right side M54.41 [place] [address] [address] Nov, Hyperparathyroidism E21.3 [place] [address] [address] Nov, Unspecified kidney failure N19 and Hyper parathyroidism E21.3 [place] [address] [address] October, Hyperparathyroidism E21.3 [place] [address] [address] October, [place] [address] [address] October, Hyperparathyroidism E21.3 [place] [address] [address] October, Hyperparathyroidism E21.3 [place] [address] [address] Sep, Hyperparathyroidism E21.3 ; Hypercholest erolemia E78.0 and Arthritis M19.90 [place] [address] [address] Aug, [place] [address] [address] Aug, Deficiency of other specified B group vi tamins E53.8 [place] [address] [address] Aug, [facility] [address] [place] [id number] [place] [address] Jul, Urinary frequency R35.0 [facility] [address] [id number] [place] [address] Jul, Urinary frequency R35.0 [facility] [address] [place] [id number] [place] [address] Jul, [facility] [address] [address] Jul, [facility] [address] [address] Jun, Pain in left knee M25.562 [facility] [address] [address] Jun, [facility] [address] [address] May, Swelling of left knee joint M25.462 [facility] [address] [address] May, [facility] [address] [address] May, [facility] [address] [address] May, [facility] [address] [address] Apr, Renal insufficiency N28.9 and Chronic ki dney disease, stage 4 (severe) N18.4 [facility] [address] [address] Apr, Unspecified kidney failure N19 [facility] [address] [address] Apr, Unspecified kidney failure N19 [facility] [address] [address] Apr, [facility] [address] [address] Apr, Hyperparathyroidism, unspecified 252.00 [facility] [address] [address] Apr, [facility] [address] [address] Mar, [facility] [address] [address] Mar, [facility] [address] [address] Mar, Hyperparathyroidism, unspecified 252.00 [facility] [address] [address] Feb, [facility] [address] [address] Feb, Otalgia 388.70 [facility] [address] [address] Feb, [facility] [address] [address] Feb, [facility] [address] [address] Jan, [facility] [address] [address] Jan, Hyperparathyroidism, unspecified 252.00 [facility] [address] [address] Jan, [facility] [address] [address] Jan, Other B-complex deficiencies 266.2 and H yperparathyroidism, unspecified 252.00 [facility] [address] [address] Jan, [facility] [address] [address] Jan, [facility] [address] [place] [address] [place] [address] Jan, [facility] [address] [id number] [place] [address] Dec, [facility] [address] [id number] [place] [address] Dec, [facility] [address] [id number] [place] [address] Dec, [facility] [id number] [place] [address] Nov, Routine check-up V70.0 and Pre-op exam V 72.84 [facility] [id number] [place] [address] Nov, [facility] [id number] [place] [address] Nov, [facility] [id number] [place] [address] October, [facility] [id number] [place] [address] October, Other B-complex deficiencies 266.2 [facility] [id number] [place] [address] October, [facility] [id number] [place] [address] Sep, [facility] [id number] [place] [address] Sep, [facility] [id number] [place] [address] Aug, [facility] [id number] [place] [address] Aug, [facility] [id number] [place] [address] Aug, [facility] [id number] [place] [address] Aug, [facility] [address] [id number] [place] [address] Aug, 2014 [facility] [address] [id number] [place] [address] Aug, 2014 [facility] [address] [id number] [place] [address] Jul, 2014 [facility] [address] [id number] [place] [address] Jul, 2014 [facility] [address] [id number] [place] [address] Jul, 2014 [facility] [address] [id number] [place] [address] Jul, 2014 [facility] [address] [id number] [place] [address] Jul, 2014 [facility] [address] [id number] [place] [address] Jul, 2014 [facility] [address] [id number] [place] [address] Jul, 2014 [facility] [address] [id number] [place] [address] Jul, 2014 [facility] [address] [id number] [place] [address] Jul, 2014 [facility] [address] [id number] [place] [address] Jul, 2014 [facility] [address] [id number] [place] [address] Jul, 2014 [facility] [address] [id number] [place] [address] Jul, 2014 [facility] [address] [id number] [place] [address] Jul, 2014 [facility] [address] [id number] [place] [address] Jul, 2014 [facility] [address] [id number] [place] [address] Jun, [facility] [address] [id number] [place] [address] Jun, [facility] [address] [id number] [place] [address] Jun, [facility] [address] [id number] [place] [address] Jun, [facility] [address] [id number] [place] [address] Jun, [facility] [address] [id number] [place] [address] Jun, [facility] [address] [id number] [place] [address] Jun, [facility] [address] [id number] [place] [address] Jun, [facility] [address] [id number] [place] [address] Jun, [facility] [address] [id number] [place] [address] Jun, [facility] [address] [id number] [place] [address] Jun, [facility] [address] [id number] [place] [address] Jun, [facility] [address] [id number] [place] [address] Jun, [facility] [address] [id number] [place] [address] Jun, [facility] [address] [id number] [place] [address] May, [facility] [address] [id number] [place] [address] May, [facility] [address] [id number] [place] [address] May, [facility] [address] [id number] [place] [address] May, [facility] [address] [id number] [place] [address] Apr, [facility] [address] [id number] [place] [address] Apr, [facility] [address] [id number] [place] [address] Apr, [facility] [address] [id number] [place] [address] Apr, [facility] [address] [id number] [place] [address] Apr, [facility] [address] [id number] [place] [address] Apr, [facility] [address] [id number] [place] [address] Mar, [facility] [address] [id number] [place] [address] 24 Mar, 2014 [facility] [address] [id number] [place] [address] Mar, [facility] [address] [id number] [place] [address] Mar, [facility] [address] [id number] [place] [address] 15 Mar, 2014 [facility] [address] [id number] [place] [address] 15 Mar, 2014 [facility] [address] [id number] [place] [address] 13 Mar, 2014 [facility] [address] [id number] [place] [address] 13 Mar, 2014 [facility] [address] [id number] [place] [address] 07 Mar, 2014 [facility] [address] [id number] [place] [address] Mar, 2013 [facility] [address] [facility] [id number] [place] [address] Mar, 2013 [facility] [address] [facility] [id number] [place] [address] Mar, 2013 [facility] [address] [facility] [id number] [place] [address] Mar, [facility] [address] [facility] [id number] [place] [address] Feb, 2013 [facility] [address] [facility] [id number] [place] [address] Feb, 2013 [facility] [address] [id number] [place] [address] Feb, [facility] [address] [id number] [place] [address] Feb, 2013 [facility] [address] [id number] [place] [address] Feb, 2013 [facility] [address] [facility] [id number] [place] [address] Feb, 2013 [facility] [address] [id number] [place] [address] Feb, [facility] [address] [id number] [place] [address] Feb, 2013 [facility] [address] [id number] [place] [address] Feb, [facility] [address] [facility] [id number] [place] [address] Feb, [facility] [address] [facility] [id number] [place] [address] Jan, [facility] [address] [facility] [id number] [place] [address] Jan, [facility] [address] [id number] [place] [address] Dec, [facility] [address] [id number] [place] [address] Dec, [facility] [address] [id number] [place] [address] Dec, [facility] [address] [facility] [id number] [place] [address] Dec, [facility] [address] [id number] [place] [address] Dec, [facility] [address] [facility] [id number] [place] [address] Dec, [facility] [address] [facility] [id number] [place] [address] Nov, [facility] [address] [id number] [place] [address] Nov, [facility] [address] [id number] [place] [address] Nov, [facility] [address] [id number] [place] [address] Nov, [facility] [address] [facility] [id number] [place] [address] October, [facility] [address] [id number] [place] [address] October, [facility] [address] [id number] [place] [address] October, [facility] [address] [id number] [place] [address] October, [facility] [address] [facility] [id number] [place] [address] October, [facility] [address] [id number] [place] [address] October, [facility] [address] [id number] [place] [address] October, [facility] [address] [id number] [place] [address] October, [facility] [address] [id number] [place] [address] October, [facility] [address] [id number] [place] [address] October, [facility] [address] [id number] [place] [address] October, [facility] [address] [id number] [place] [address] October, [facility] [address] [id number] [place] [address] October, [facility] [address] [id number] [place] [address] October, [facility] [address] [id number] [place] [address] October, [facility] [address] [id number] [place] [address] October, [facility] [address] [id number] [place] [address] Sep, [facility] [address] [id number] [place] [address] Sep, [facility] [address] [id number] [place] [address] Sep, [facility] [address] [id number] [place] [address] Sep, [facility] [address] [id number] [place] [address] Sep, [facility] [address] [id number] [place] [address] Sep, [facility] [address] [id number] [place] [address] Aug, [facility] [address] [id number] [place] [address] Aug, [facility] [address] [id number] [place] [address] Aug, [facility] [address] [id number] [place] [address] Aug, [facility] [address] [id number] [place] [address] Aug, [facility] [address] [id number] [place] [address] Aug, [facility] [address] [id number] [place] [address] Jul, [facility] [address] [facility] [id number] [place] [address] Jul, [facility] [address] [id number] [place] [address] Jul, [facility] [address] [id number] [place] [address] Jul, [facility] [address] [id number] [place] [address] Jun, [facility] [address] [id number] [place] [address] Jun, [facility] [address] [id number] [place] [address] May, [facility] [address] [id number] [place] [address] May, [facility] [address] [id number] [place] [address] May, [facility] [address] [id number] [place] [address] May, [facility] [address] [id number] [place] [address] May, [facility] [address] [id number] [place] [address] Apr, [facility] [address] [id number] [place] [address] Apr, [facility] [address] [id number] [place] [address] Apr, [facility] [address] [facility] [id number] [place] [address] Apr, [facility] [address] [id number] [place] [address] Apr, [facility] [address] [id number] [place] [address] 04 Apr, 2013 [facility] [address] [id number] [place] [address] 15 Mar, 2013 [facility] [address] [id number] [place] [address] 15 Mar, 2013 [facility] [address] [id number] [place] [address] 14 Mar, 2013 [facility] [address] [id number] [place] [address] 14 Mar, 2013 [facility] [address] [id number] [place] [address] Mar, [facility] [address] [id number] [place] [address] Mar, [facility] [address] [id number] [place] [address] 23 Feb, 2013 [facility] [address] [id number] [place] [address] Feb, [facility] [address] [id number] [place] [address] 04 Feb, 2013 [facility] [address] [facility] [id number] [place] [address] 30 Jan, 2013 [facility] [address] [id number] [place] [address] Jan, [facility] [address] [id number] [place] [address] Jan, [facility] [address] [id number] [place] [address] Jan, [facility] [address] [facility] [id number] [place] [address] Jan, [facility] [address] [id number] [place] [address] Jan, [facility] [address] [facility] [id number] [place] [address] Dec, [facility] [address] [id number] [place] [address] Dec, [facility] [address] [facility] [id number] [place] [address] Dec, [facility] [address] [id number] [place] [address] Dec, [facility] [address] [id number] [place] [address] Dec, [facility] [address] [id number] [place] [address] Dec, [facility] [address] [id number] [place] [address] Nov, [facility] [address] [id number] [place] [address] Nov, [facility] [address] [id number] [place] [address] Nov, [facility] [address] [id number] [place] [address] Nov, [facility] [address] [id number] [place] [address] Nov, [facility] [address] [id number] [place] [address] Nov, [facility] [address] [id number] [place] [address] October, [facility] [address] [id number] [place] [address] October, [facility] [address] [id number] [place] [address] October, [facility] [address] [id number] [facility] [place] [address] October, [facility] [address] [id number] [facility] [address] October, [facility] [address] [id number] [facility] [address] Sep, [facility] [address] [id number] [facility] [address] Sep, [facility] [address] [id number] [facility] [address] Sep, [facility] [address] [id number] [place] [address] Sep, [facility] [address] [id number] [place] [address] Sep, [facility] [address] [id number] [place] [address] Aug, [facility] [address] [id number] [place] [address] Aug, [facility] [address] [id number] [place] [address] Aug, [facility] [address] [id number] [place] [address] Jul, [facility] [address] [id number] [place] [address] Jul, [facility] [address] [id number] [place] [address] Jul, [facility] [address] [id number] [place] [address] 08 Jul, 2012 [facility] [address] [id number] [place] [address] 06 Jul, 2012 [facility] [address] [id number] [place] [address] 05 Jul, 2012 [facility] [address] [id number] [place] [address] Jun, [facility] [address] [id number] [place] [address] Apr, [facility] [address] [id number] [place] [address] Apr, [facility] [id number] [place] [address] Apr, [facility] [address] [id number] [place] [address] Apr, [facility] [address] [id number] [place] [address] Mar, [facility] [address] [id number] [place] [address] Mar, [facility] [id number] [place] [address] Mar, [facility] [id number] [place] [address] Mar, [facility] [id number] [place] [address] Mar, [facility] [address] [id number] [place] [address] Feb, [facility] [address] [id number] [place] [address] Jan, [facility] [address] [id number] [place] [address] Jan, [facility] [address] [id number] [place] [address] Jan, [facility] [id number] [place] [address] Dec, [facility] [address] [id number] [place] [address] Nov, [facility] [id number] [place] [address] Nov, [facility] [address] [id number] [place] [address] Nov, [facility] [address] [id number] [place] [address] Nov, [facility] [address] [id number] [place] [address] Nov, [facility] [id number] [place] [address] October, [facility] [id number] [place] [address] October, [facility] [id number] [place] [address] October, [facility] [address] [id number] [place] [address] October, [facility] [address] [id number] [place] [address] October, IMMUNIZATIONS No Known Immunizations SOCIAL HISTORY [...]
--- OUTSIDE RECORDS SUMMARY | 2020-01-25 07:40 | XMS REPORT ---
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 Role Phone Migration, Doctor Unavailable Unavailable PROBLEMS Type Condition ICD9-CM Code QKY88-RK Code Onset Dates Condition S tatus SNOMED Code Problem Primary insomnia F51.01 Active 397 2004 Problem Hypercholesteremia E78.0 Active 1 9878175 Problem Corns L84 Active 384302956 Problem Arthritis M19.90 Active 0182868 Problem Hyperparathyroidism E21.3 Active 58994675 Problem 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 Active 49298179 Problem 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 Active 88165597 Problem BPV (benign positional vertigo), bilateral H81.13 Active 193455890 Problem Unspecified kidney failure N19 Act chip 39392464 Problem Myalgia M79.1 Active 72547071 Problem 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 Active 279230244 Problem Mood disorder F39 Active 480823 05 Problem Chronic kidney disease, stage 4 (severe) N18.4 Active 466984645 Problem Primary osteoarthritis of left knee M17.12 Active 893858629425924 Problem Irritable bowel syndrome with both constipation and diarrh ea K58.2 Active 18458348 Problem Body mass index (BMI) of 40.0-44.9 in adult Z68.41 Active 480272988 ALLERGIES No Information ENCOUNTERS Encounter Location Date Diagnosis [facility] [id number] [place] [address] Jun, Knee pain, left M25.562 [facility] [address] [address] 17 May, 2019 Arthritis M19.90 [facility] [address] [address] 05 Apr, 2019 Well woman exam without gynecological ex am Z00.00 and Screening for breast cancer Z12.39 [facility] [address] [address] Mar, Arthritis M19.90 [facility] [address] [address] Mar, Arthritis M19.90 [facility] [address] [address] Mar, [facility] [address] [address] Mar, Arthritis M19.90 and Encounter for immun ization Z23 [facility] [address] [address] Feb, Arthritis M19.90 [facility] [address] [address] Feb, [facility] [address] [address] Feb, Other specified disorders of bone densit y and structure, unspecified site M85.80 [facility] [address] [address] Jan, Arthritis M19.90 [facility] [address] [address] Dec, Arthritis M19.90 [facility] [address] [address] Nov, Inflammatory spondylopathy of sacral reg ion M46.98 [facility] [address] [address] Nov, [facility] [address] [address] Nov, Labyrinthitis of left ear H83.02 [facility] [address] [address] Nov, Arthritis M19.90 [facility] [address] [address] Sep, Arthritis M19.90 [facility] [address] [address] 08 Sep, 2018 Renal insufficiency N28.9 and Unspecifie d kidney failure N19 [facility] [address] [address] 08 Sep, 2018 Renal insufficiency N28.9 and Unspecifie d kidney failure N19 [facility] [address] [address] 08 Sep, 2018 Arthritis M19.90 [facility] [address] [address] 18 Aug, 2018 Exercise counseling Z71.82 [facility] [place] [address] [address] Aug, [facility] [address] [address] 27 Jul, 2018 Labyrinthitis of left ear H83.02 [facility] [place] [address] [address] Jul, Labyrinthitis of left ear H83.02 [facility] [address] [address] 19 Jul, 2018 Exercise counseling Z71.82 [facility] [address] [address] 18 Jul, 2018 [facility] [place] [address] [address] 14 Jul, 2018 Arthritis M19.90 [facility] [address] [address] 13 Jul, 2018 Encounter for Medicare annual wellness e xam Z00.00 ; Chronic kidney disease, stage 4 (severe) N18.4 ; Body mass index (BMI) of 40.0-44.9 in adult Z68.41 ; Hyperparathyroidism E21.3 and BMI 40.0-44.9, adult Z68.41 [facility] [address] [address] 13 Jul, 2018 Encounter for Medicare annual wellness e xam Z00.00 ; Chronic kidney disease, stage 4 (severe) N18.4 ; Hyperparathyroidism E21.3 ; Body mass index (BMI) of 40.0-44.9 in adult Z68.41 and Encounter for immunization Z23 [facility] [address] [address] 11 Jul, 2018 Tail bone pain M53.3 [facility] [address] [address] 29 Jun, 2018 Exercise counseling Z71.82 [facility] [address] [address] Jun, Labyrinthitis of left ear H83.02 [facility] [address] [address] Jun, Tail bone pain M53.3 ; Irritable bowel s yndrome with both constipation and diarrhea K58.2 and Dysfunction of left eustachian tube H69.82 [facility] [address] [address] Jun, Exercise counseling Z71.82 [facility] [address] [address] 18 Jun, 2018 Arthritis M19.[address] [address] 16 Jun, 2018 Irritable bowel syndrome with both const ipation and diarrhea K58.2 ; Tail bone pain M53.3 and Dysfunction of left eustachian tube H69.82 [facility] [address] [address] Jun, Exercise counseling Z71.82 [facility] [address] [address] Jun, Exercise counseling Z71.82 [facility] [address] [address] Jun, Labyrinthitis of left ear H83.02 [facility] [place] [address] [address] May, Exercise counseling Z71.82 [facility] [address] [address] May, Arthritis M19.90 [facility] [address] [address] May, Exercise counseling Z71.82 [facility] [place] [address] [address] May, Exercise counseling Z71.82 [facility] [address] [address] May, Labyrinthitis of left ear H83.02 [facility] [place] [address] [address] May, Exercise counseling Z71.82 [facility] [place] [address] [address] Apr, Arthritis M19.90 [facility] [place] [address] [address] Apr, Exercise counseling Z71.82 [facility] [place] [address] [address] Apr, Exercise counseling Z71.82 [facility] [place] [address] [address] Apr, Primary osteoarthritis of left knee M17. 12 [facility] [place] [address] [address] 08 Apr, 2018 Labyrinthitis of left ear H83.02 [facility] [place] [address] [address] 30 Mar, 2018 Arthritis M19.90 [facility] [address] [address] Mar, [facility] [place] [address] [address] Mar, Chronic kidney disease, stage 4 (severe) N18.4 [facility] [place] [address] [address] Mar, Chronic kidney disease, stage 4 (severe) N18.4 [place] [place] [address] [address] Mar, Labyrinthitis of left ear H83.02 [place] [place] [address] [address] Mar, Chronic kidney disease, stage 4 (severe) N18.4 ; Knee pain, left anterior M25.562 ; 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 and Encounter for immunization Z23 [place] [address] [address] Mar, Arthritis M19.90 [facility] [place] [address] [address] Feb, Labyrinthitis of left ear H83.02 [facility] [address] [address] Feb, Arthritis M19.90 [facility] [place] [address] [address] Jan, Labyrinthitis of left ear H83.02 [facility] [place] [address] [address] Jan, Arthritis M19.90 [facility] [place] [address] [address] Dec, Labyrinthitis of left ear H83.02 [facility] [place] [address] [address] Nov, Arthritis M19.90 [facility] [place] [address] [address] Nov, Labyrinthitis of left ear H83.02 [place] [place] [address] [address] Nov, BMI 40.0-44.9, adult Z68.41 ; Chronic ki dney disease, stage 4 (severe) N18.4 and Acute right-sided thoracic back pain M54.6 [facility] [place] [address] [address] October, Labyrinthitis of left ear H83.02 and Art hritis M19.90 [place] [place] [address] [address] Sep, BPV (benign positional vertigo), bilater al H81.13 ; Dysfunction of left eustachian tube H69.82 and BMI 40.0-44.9, adult Z68.41 [facility] [place] [address] [address] Sep, Labyrinthitis of left ear H83.02 and Art hritis M19.90 [facility] [place] [address] [address] Sep, [place] [address] [address] Sep, [place] [place] [address] [address] Sep, Chronic kidney disease, stage 4 (severe) N18.4 [place] [place] [address] [address] Sep, Chronic kidney disease, stage 4 (severe) N18.4 [place] [place] [address] [address] Aug, Labyrinthitis of left ear H83.02 and Art hritis M19.90 [facility] [place] [address] [address] Aug, [facility] [place] [address] [address] Jul, [facility] [address] [address] Jul, Arthritis M19.90 and Labyrinthitis of le ft ear H83.02 [facility] [place] [address] [address] Jul, [facility] [place] [address] [address] Jun, [facility] [place] [address] [address] Jun, Arthritis M19.90 and Labyrinthitis of le ft ear H83.02 [place] [place] [address] [address] Jun, Pre-op evaluation Z01.818 ; BMI 40.0-44. 9, adult Z68.41 and Encounter for immunization Z23 [address] [address] May, Arthritis M19.90 and Labyrinthitis of le ft ear H83.02 [place] [place] [address] [address] Apr, Labyrinthitis of left ear H83.02 [facility] [place] [address] [address] Apr, Arthritis M19.90 and Labyrinthitis of le ft ear H83.02 [facility] [place] [address] [address] Mar, Arthritis M19.90 and Labyrinthitis of le ft ear H83.02 [facility] [place] [address] [address] Mar, Chronic kidney disease, stage 4 (severe) N18.4 [place] [place] [address] [address] 06 Feb, 2017 Arthritis M19.90 and Labyrinthitis of le ft ear H83.02 [facility] [place] [address] [address] Jan, Labyrinthitis of left ear H83.02 and Def iciency 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 [facility] [place] [address] [address] Dec, Arthritis M19.90 [facility] [address] [address] Dec, BPV (benign positional vertigo), bilater al H81.13 [place] [address] [address] Dec, [facility] [place] [address] [address] Dec, [facility] [place] [address] [address] Dec, [place] [place] [address] [address] Nov, Arthritis M19.90 and 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 [place] [place] [address] [address] Nov, Arthritis M19.90 [facility] [place] [address] [address] Nov, Hyperparathyroidism E21.3 [facility] [place] [address] [address] October, [place] [address] [address] October, Hyperparathyroidism E21.3 [place] [place] [address] [address] October, [facility] [place] [address] [address] October, Renal insufficiency N28.9 and Hyperparat hyroidism E21.3 [place] [place] [address] [address] October, [place] [address] [address] October, Renal insufficiency N28.9 and Hyperparat hyroidism E21.3 [facility] [address] [address] October, Arthritis M19.90 [facility] [address] [address] Sep, [facility] [address] [address] Sep, Lumbar neuritis M54.16 ; Thoracic absces s J86.9 and 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 [facility] [address] [address] Sep, [facility] [address] [address] Aug, Arthritis M19.90 [facility] [address] [address] Aug, Hyperparathyroidism E21.3 [facility] [address] [address] Aug, Hyperparathyroidism E21.3 [facility] [address] [address] Aug, Arthritis M19.90 [facility] [address] [address] Jul, Mass of throat R22.1 [facility] [address] [address] Jul, [facility] [address] [address] Jul, Arthritis M19.90 [facility] [address] [address] Jun, Arthritis M19.90 [facility] [address] [address] Jun, [facility] [address] [address] Jun, Renal insufficiency N28.9 and Parathyroi d 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 [place] [place] [address] [address] Jun, Medicare welcome exam Z00.00 ; Encounter for immunization Z23 ; Arthritis M19.90 ; Medicare annual wellness visit, initial Z00.00 ; Medicare annual wellness visit, subsequent Z00.00 and 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 [place] [place] [address] [address] May, Renal insufficiency N28.9 and Parathyroi d 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 [facility] [place] [address] [address] May, Renal insufficiency N28.9 [facility] [place] [address] [address] May, Renal insufficiency N28.9 [place] [place] [address] [address] May, [facility] [place] [address] [address] Apr, [place] [place] [address] [address] 16 Apr, 2016 [place] [address] [address] 14 Apr, 2016 Mass of throat R22.1 [facility] [place] [address] [address] 10 Apr, 2016 [place] [address] [address] 10 Apr, 2016 Mass of throat R22.1 [place] [place] [address] [address] 04 Apr, 2016 Mass of throat R22.1 [place] [address] [address] Mar, [place] [address] [address] Mar, [facility] [address] [address] Mar, [facility] [address] [address] Mar, 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 for immunization Z23 [facility] [address] [address] Mar, [facility] [address] [address] Mar, [facility] [address] [address] Feb, Renal insufficiency N28.9 and Hyperparat hyroidism E21.3 [place] [address] [address] 19 Feb, 2016 [facility] [address] [address] 15 Feb, 2016 Renal insufficiency N28.9 and Hyperparat hyroidism E21.3 [place] [address] [address] 14 Feb, 2016 [facility] [address] [address] 12 Feb, 2016 [facility] [address] [address] Feb, [facility] [address] [address] Jan, [facility] [address] [address] Jan, Arthritis M19.90 ; Lumbago with sciatica , right side M54.41 and Other chronic pain G89.29 [facility] [address] [address] Jan, [facility] [address] [address] Dec, Arthritis M19.90 ; Lumbago with sciatica , right side M54.41 and Other chronic pain G89.29 [place] [address] [address] Nov, Deficiency of other specified B group vi tamins E53.8 ; Primary insomnia F51.01 ; Mood disorder F39 and Lumbago with sciatica, right side M54.41 [place] [address] [address] Nov, Hyperparathyroidism E21.3 [place] [address] [address] Nov, Unspecified kidney failure N19 and Hyper parathyroidism E21.3 [place] [address] [address] October, Hyperparathyroidism E21.3 [place] [address] [address] October, [place] [address] [address] October, Hyperparathyroidism E21.3 [place] [address] [address] October, Hyperparathyroidism E21.3 [facility] [place] [address] [address] Sep, Hyperparathyroidism E21.3 ; Hypercholest erolemia E78.0 and Arthritis M19.90 [place] [address] [address] Aug, [place] [place] [address] [address] Aug, Deficiency of other specified B group vi tamins E53.8 [place] [address] [address] Aug, [facility] [address] [address] Jul, Urinary frequency R35.0 [facility] [address] [address] Jul, Urinary frequency R35.0 [facility] [id number] [place] [address] Jul, [facility] [address] [address] Jul, [facility] [address] [address] Jun, Pain in left knee M25.562 [facility] [address] [address] Jun, [facility] [address] [address] May, Swelling of left knee joint M25.462 [facility] [address] [address] May, [facility] [address] [address] May, [facility] [address] [address] May, [facility] [address] [address] Apr, Renal insufficiency N28.9 and Chronic ki dney disease, stage 4 (severe) N18.4 [facility] [address] [address] Apr, Unspecified kidney failure N19 [facility] [address] [address] Apr, Unspecified kidney failure N19 [facility] [address] [address] Apr, [facility] [address] [address] Apr, Hyperparathyroidism, unspecified 252.00 [facility] [address] [address] Apr, [facility] [address] [address] Mar, [facility] [address] [address] Mar, [facility] [address] [address] Mar, Hyperparathyroidism, unspecified 252.00 [facility] [address] [address] Feb, [facility] [address] [address] Feb, Otalgia 388.70 [facility] [address] [address] Feb, [facility] [address] [address] Feb, [facility] [address] [address] Jan, [facility] [address] [address] Jan, Hyperparathyroidism, unspecified 252.00 [facility] [address] [address] Jan, [facility] [address] [address] Jan, Other B-complex deficiencies 266.2 and H yperparathyroidism, unspecified 252.00 [facility] [address] [address] Jan, [facility] [address] [address] Jan, [facility] [address] [address] Jan, [facility] [address] [id number] [place] [address] Dec, [facility] [address] [id number] [place] [address] Dec, [facility] [address] [id number] [place] [address] Dec, [facility] [id number] [place] [address] Nov, Routine check-up V70.0 and Pre-op exam V 72.84 [facility] [address] [id number] [place] [address] Nov, [facility] [id number] [place] [address] Nov, [facility] [id number] [place] [address] October, [facility] [id number] [place] [address] October, Other B-complex deficiencies 266.2 [facility] [address] [id number] [place] [address] October, [facility] [id number] [place] [address] Sep, [facility] [id number] [place] [address] Sep, [facility] [address] [id number] [place] [address] Aug, [facility] [address] [id number] [place] [address] Aug, [facility] [id number] [place] [address] Aug, [facility] [address] [id number] [place] [address] Aug, [facility] [id number] [place] [address] Aug, [facility] [address] [id number] [place] [address] Aug, [facility] [address] [id number] [place] [address] Jul, 2014 [facility] [address] [id number] [place] [address] Jul, 2014 [facility] [address] [id number] [place] [address] Jul, 2014 [facility] [address] [facility] [id number] [place] [address] Jul, 2014 [facility] [address] [id number] [place] [address] Jul, 2014 [facility] [address] [id number] [place] [address] Jul, 2014 [facility] [address] [id number] [place] [address] Jul, 2014 [facility] [address] [id number] [place] [address] Jul, 2014 [facility] [address] [id number] [place] [address] Jul, 2014 [facility] [address] [id number] [place] [address] Jul, 2014 [facility] [address] [id number] [place] [address] Jul, 2014 [facility] [address] [id number] [place] [address] Jul, 2014 [facility] [address] [id number] [place] [address] Jul, 2014 [facility] [address] [id number] [place] [address] Jul, 2014 [facility] [address] [id number] [place] [address] Jun, [facility] [address] [id number] [place] [address] Jun, [facility] [address] [id number] [place] [address] Jun, [facility] [address] [id number] [place] [address] Jun, [facility] [address] [id number] [place] [address] Jun, [facility] [address] [id number] [place] [address] Jun, [facility] [address] [id number] [place] [address] Jun, [facility] [address] [id number] [place] [address] Jun, [facility] [address] [id number] [place] [address] Jun, [facility] [address] [id number] [place] [address] Jun, [facility] [address] [id number] [place] [address] Jun, [facility] [address] [id number] [place] [address] Jun, [facility] [address] [id number] [place] [address] Jun, [facility] [address] [id number] [place] [address] Jun, [facility] [address] [id number] [place] [address] May, [facility] [address] [id number] [place] [address] May, [facility] [address] [id number] [place] [address] May, [facility] [address] [id number] [place] [address] May, [facility] [address] [facility] [id number] [place] [address] Apr, [facility] [address] [facility] DEMOLISHED [address] [id number] [place] [address] Apr, [facility] [place] [facility] [address] [id number] [place] [address] Apr, [facility] [place] [facility] [address] [id number] [place] [address] Apr, [facility] [place] [facility] [address] [facility] [address] [id number] [place] [address] Apr, [facility] [place] [facility] [address] [id number] [place] [address] Apr, [facility] [place] [facility] [address] [id number] [place] [address] Mar, [facility] [place] [facility] [address] [id number] [place] [address] Mar, [facility] [place] [facility] [address] [id number] [place] [address] Mar, [facility] [place] [facility] [address] [id number] [place] [address] Mar, [facility] [place] [facility] [address] [id number] [place] [address] Mar, [facility] [place] [facility] [address] [id number] [place] [address] Mar, [facility] [place] [facility] [address] [id number] [place] [address] Mar, [facility] [place] [facility] [address] [id number] [place] [address] Mar, [facility] [place] [facility] [address] [id number] [place] [address] Mar, [facility] [place] [facility] [address] [id number] [place] [address] Mar, [facility] [place] [facility] [address] [id number] [place] [address] 07 Mar, 2013 [facility] [place] [facility] [address] [id number] [place] [address] Mar, [facility] [place] [facility] [address] [facility] [address] [id number] [place] [address] Mar, [facility] [place] [facility] [address] [id number] [place] [address] Feb, [facility] [place] [facility] [address] [facility] [id number] [place] [address] Feb, [facility] [place] [facility] [address] [facility] [address] [id number] [place] [address] Feb, [facility] [place] [facility] [address] [id number] [place] [address] Feb, [facility] [place] [facility] [address] [id number] [place] [address] Feb, [facility] [place] [facility] [address] [id number] [place] [address] Feb, [facility] [place] [facility] [address] [id number] [place] [address] Feb, [facility] [place] [facility] [address] [id number] [place] [address] Feb, [facility] [place] [facility] [address] [id number] [place] [address] Feb, [facility] [place] [facility] [address] [id number] [place] [address] Feb, [facility] [place] [facility] [address] [facility] [id number] [place] [address] Jan, [facility] [place] [facility] [address] [id number] [place] [address] Jan, [facility] [place] [facility] [address] [id number] [place] [address] Dec, [facility] [place] [facility] [address] [id number] [place] [address] Dec, [facility] [place] [facility] [address] [id number] [place] [address] Dec, [facility] [place] [facility] [address] [id number] [place] [address] Dec, [facility] [place] [facility] [address] [id number] [place] [address] Dec, [facility] [place] [facility] [address] [id number] [place] [address] Dec, [facility] [place] [facility] [address] [facility] [id number] [place] [address] Nov, [facility] [place] [facility] [address] [id number] [place] [address] Nov, [facility] [place] [facility] [address] [id number] [place] [address] Nov, [facility] [place] [facility] [address] [id number] [place] [address] Nov, [facility] [place] [facility] [address] [id number] [place] [address] October, [facility] [place] [facility] [address] [id number] [place] [address] October, [facility] [place] [facility] [address] [id number] [place] [address] October, [facility] [place] [facility] [address] [id number] [place] [address] October, [facility] [place] [facility] [address] [id number] [place] [address] October, [facility] [place] [facility] [address] [facility] [id number] [place] [address] October, [facility] [place] [facility] [address] [id number] [place] [address] October, [facility] [place] [facility] [address] [id number] [place] [address] October, [facility] [place] [facility] [address] [id number] [place] [address] October, [facility] [place] [facility] [address] [id number] [place] [address] October, [facility] [place] [facility] [address] [facility] 2001 [id number] [place] [address] October, [facility] [place] [facility] [address] [facility] 2001 [id number] [place] [address] October, [facility] [place] [facility] [address] [id number] [place] [address] October, [facility] [place] [facility] [address] [facility] 2001 [id number] [place] [address] October, [facility] [place] [facility] [address] [id number] [place] [address] October, [facility] [place] [facility] [address] [id number] [place] [address] October, [facility] [place] [facility] [address] [id number] [place] [address] Sep, [facility] [place] [facility] [address] [facility] 2001 [id number] [place] [address] Sep, [facility] [place] [facility] [address] [id number] [place] [address] Sep, [facility] [place] [facility] [address] [id number] [place] [address] Sep, [facility] [place] [facility] [address] [id number] [place] [address] Sep, [facility] [place] [facility] [address] [facility] 2001 [id number] [place] [address] Sep, [facility] [place] [facility] [address] [id number] [place] [address] Aug, [facility] [place] [facility] [address] [facility] 2001 [id number] [place] [address] Aug, [facility] [place] [facility] [address] [id number] [place] [address] Aug, [facility] [place] [facility] [address] [id number] [place] [address] Aug, [facility] [place] [facility] [address] [facility] [id number] [place] [address] Aug, [facility] [place] [facility] [address] [id number] [place] [address] Aug, [facility] [place] [facility] [address] [id number] [place] [address] Jul, [facility] [place] [facility] [address] [id number] [place] [address] Jul, [facility] [place] [facility] [address] [id number] [place] [address] Jul, [facility] [place] [facility] [address] [id number] [place] [address] Jul, [facility] [place] [facility] [address] [id number] [place] [address] Jun, [facility] [place] [facility] [address] [id number] [place] [address] Jun, [facility] [place] [facility] [address] [id number] [place] [address] May, [facility] [place] [facility] [address] [id number] [place] [address] May, [facility] [place] [facility] [address] [id number] [place] [address] May, [facility] [place] [facility] [address] [id number] [place] [address] May, [facility] [place] [facility] [address] [id number] [place] [address] May, [facility] [place] [facility] [address] [id number] [place] [address] Apr, [facility] [place] [facility] [address] [id number] [place] [address] Apr, [facility] [place] [facility] [address] [id number] [place] [address] Apr, [facility] [place] [facility] [address] [facility] [id number] [place] [address] Apr, [facility] [place] [facility] [address] [id number] [place] [address] Apr, [facility] [place] [facility] [address] [id number] [place] [address] Apr, [facility] [place] [facility] [address] [id number] [place] [address] 15 Mar, 2013 [facility] [place] [facility] [address] [facility] [id number] [place] [address] 15 Mar, 2013 [facility] [place] [facility] [address] [id number] [place] [address] 14 Mar, 2013 [facility] [place] [facility] [address] [id number] [place] [address] 14 Mar, 2013 [facility] [place] [facility] [address] [id number] [place] [address] Mar, [facility] [place] [facility] [address] [id number] [place] [address] Mar, [facility] [place] [facility] [address] [id number] [place] [address] 23 Feb, 2013 [facility] [place] [facility] [address] [id number] [place] [address] Feb, [facility] [place] [facility] [address] [id number] [place] [address] Feb, [facility] [place] [facility] [address] [id number] [place] [address] 30 Jan, 2013 [facility] [place] [facility] [address] [facility] [address] [id number] [place] [address] Jan, [facility] [place] [facility] [address] [id number] [place] [address] Jan, [facility] [place] [facility] [address] [id number] [place] [address] 16 Jan, 2013 [facility] [place] [facility] [address] [id number] [place] [address] Jan, [facility] [place] [facility] [address] [facility] 2001 [id number] [place] [address] Jan, [facility] [place] [facility] [address] [facility] 2001 [id number] [place] [address] Dec, [facility] [place] [facility] [address] [id number] [place] [address] Dec, [facility] [place] [facility] [address] [id number] [place] [address] Dec, [facility] [place] [facility] [address] [facility] 2001 [id number] [place] [address] Dec, [facility] [place] [facility] [address] [id number] [place] [address] Dec, [facility] [place] [facility] [address] [id number] [place] [address] Dec, [facility] [place] [facility] [address] [id number] [place] [address] Nov, [facility] [place] [facility] [address] [id number] [place] [address] Nov, [facility] [place] [facility] [address] [id number] [place] [address] Nov, [facility] [place] [facility] [address] [id number] [place] [address] Nov, [facility] [place] [facility] [address] [id number] [place] [address] Nov, [facility] [place] [facility] [address] [id number] [place] [address] Nov, [facility] [place] [facility] [address] [id number] [place] [address] October, [facility] [place] [facility] [address] [id number] [place] [address] October, [facility] [place] [facility] [address] [id number] [place] [address] October, [facility] [place] [facility] [address] [id number] [place] [address] 15 Oct, 2012 [facility] [place] [facility] [address] [id number] [place] [address] October, [facility] [place] [facility] [address] [id number] [place] [address] 30 Sep, 2012 [facility] [place] [facility] [address] [id number] [place] [address] Sep, [facility] [place] [facility] [address] [id number] [place] [address] Sep, [facility] [place] [facility] [address] [id number] [place] [address] Sep, [facility] [place] [facility] [address] [id number] [place] [address] Sep, [facility] [place] [facility] [address] [id number] [place] [address] Aug, [facility] [place] [facility] [address] [id number] [place] [address] Aug, [facility] [place] [facility] [address] [id number] [place] [address] Aug, [facility] [place] [facility] [address] [id number] [place] [address] Jul, [facility] [place] [facility] [address] [id number] [place] [address] Jul, [facility] [place] [facility] [address] [id number] [place] [address] Jul, [facility] [place] [facility] [address] [id number] [place] [address] 08 Jul, 2012 [facility] [place] [facility] [address] [id number] [place] [address] 06 Jul, 2012 [facility] [place] [facility] [address] [id number] [place] [address] 05 Jul, 2012 [facility] [place] [facility] [address] [id number] [place] [address] Jun, [facility] [place] [facility] [address] [id number] [place] [address] Apr, [facility] [place] [facility] [address] [id number] [place] [address] Apr, [facility] [place] [facility] [address] [id number] [place] [address] Apr, [facility] [place] [facility] [address] [id number] [place] [address] Apr, [facility] [place] [facility] [address] [id number] [place] [address] Mar, [facility] [place] [facility] [address] [id number] [place] [address] Mar, [facility] [place] [facility] [address] [id number] [place] [address] Mar, [facility] [place] [facility] [address] [id number] [place] [address] Mar, [facility] [place] [facility] [address] [id number] [place] [address] Mar, [facility] [place] [facility] [address] [id number] [place] [address] Feb, [facility] [place] [facility] [address] [id number] [place] [address] Jan, [facility] [place] [facility] [address] [id number] [place] [address] Jan, [facility] [place] [facility] [address] [id number] [place] [address] Jan, [facility] [place] [facility] [address] [id number] [place] [address] Dec, [facility] [place] [facility] [address] [id number] [place] [address] Nov, [facility] [place] [facility] [address] [id number] [place] [address] Nov, [facility] [place] [facility] [address] [id number] [place] [address] Nov, [facility] [address] [id number] [place] [address] Nov, [facility] [address] [id number] [place] [address] Nov, [facility] [address] [id number] [place] [address] October, [facility] [address] [address] October, [facility] [id number] [place] [address] October, [facility] [id number] [place] [address] October, [facility] [address] [id number] [place] [address] October, IMMUNIZATIONS No Known Immunizations SOCIAL HISTORY Never Assessed REASON FOR VISIT PLAN OF CARE VITAL SIGNS MEDICATIONS No Known Medications RESULTS No Results PROCEDURES Procedure Date Ordered Result Body Site THER/PROPH/DIAG INJ, SC/IM December 06, 2013 INJ VIT B-12 CYNOCOBLMN TO 1000 MCG December 06, 2013 INSTRUCTIONS MEDICATIONS ADMINISTERED No Known Medications [...]
--- OUTSIDE RECORDS SUMMARY | 2020-01-25 07:40 | XMS REPORT ---
Author Author Velma CORDERO Organization [facility] Address [address] [place] [address] Care Team Providers Care Audio Video Technician Name Role Phone STEPHAN CORDERO Unavailable PROBLEMS Type Condition ICD9-CM Code VFX59-TC Code Onset Dates Condition S tatus SNOMED Code Problem Primary insomnia F51.01 Active 397 2004 Problem Hypercholesteremia E78.0 Active 1 3913475 Problem Corns L84 Active 528919465 Problem Arthritis M19.90 Active 6835691 Problem Hyperparathyroidism E21.3 Active 30533636 Problem 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 Active 22192082 Problem 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 Active 11759555 Problem BPV (benign positional vertigo), bilateral H81.13 Active 340897440 Problem Unspecified kidney failure N19 Act chip 37091013 Problem Myalgia M79.1 Active 25812726 Problem 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 Active 614059420 Problem Mood disorder F39 Active 594434 05 Problem Chronic kidney disease, stage 4 (severe) N18.4 Active 836099483 Problem Primary osteoarthritis of left knee M17.12 Active [id number] Problem Irritable bowel syndrome with both constipation and diarrh ea K58.2 Active 58514139 Problem Body mass index (BMI) of 40.0-44.9 in adult Z68.41 Active 781381836 ALLERGIES No Information ENCOUNTERS Encounter Location Date Diagnosis [facility] [address] [id number] [place] [address] Jun, Knee pain, left M25.562 [facility] [address] [id number] [place] [address] May, Arthritis M19.90 [facility] [address] [id number] [place] [address] Apr, Well woman exam without gynecological ex am Z00.00 and Screening for breast cancer Z12.39 [facility] [address] [address] Mar, Arthritis M19.90 [facility] [address] [address] Mar, Arthritis M19.90 [facility] [address] [address] Mar, [facility] [address] [address] Mar, Arthritis M19.90 and Encounter for immun ization Z23 [place] [address] [address] Feb, Arthritis M19.90 [place] [address] [address] Feb, [place] [address] [address] Feb, Other specified disorders of bone densit y and structure, unspecified site M85.80 [place] [address] [address] Jan, Arthritis M19.90 [facility] [address] [address] Dec, Arthritis M19.90 [facility] [address] [address] Nov, Inflammatory spondylopathy of sacral reg ion M46.98 [facility] [address] [address] Nov, [facility] [address] [address] Nov, Labyrinthitis of left ear H83.02 [facility] [address] [address] Nov, Arthritis M19.90 [facility] [address] [address] 15 Sep, 2018 Arthritis M19.90 [place] [address] [address] 08 Sep, 2018 Renal insufficiency N28.9 and Unspecifie d kidney failure N19 [place] [address] [address] 08 Sep, 2018 Renal insufficiency N28.9 and Unspecifie d kidney failure N19 [place] [address] [address] Sep, Arthritis M19.90 [place] [address] [address] Aug, Exercise counseling Z71.82 [place] [address] [address] Aug, [place] [address] [address] Jul, Labyrinthitis of left ear H83.02 [place] [address] [address] Jul, Labyrinthitis of left ear H83.02 [place] [address] [address] 19 Jul, 2018 Exercise counseling Z71.82 [place] [address] [address] 18 Jul, 2018 [place] [address] [address] 14 Jul, 2018 Arthritis M19.90 [place] [address] [address] 13 Jul, 2018 Encounter for Medicare annual wellness e xam Z00.00 ; Chronic kidney disease, stage 4 (severe) N18.4 ; Body mass index (BMI) of 40.0-44.9 in adult Z68.41 ; Hyperparathyroidism E21.3 and BMI 40.0-44.9, adult Z68.41 [place] [address] [address] 13 Jul, 2018 Encounter for Medicare annual wellness e xam Z00.00 ; Chronic kidney disease, stage 4 (severe) N18.4 ; Hyperparathyroidism E21.3 ; Body mass index (BMI) of 40.0-44.9 in adult Z68.41 and Encounter for immunization Z23 [address] [address] 11 Jul, 2018 Tail bone pain M53.3 [place] [address] [address] 29 Jun, 2018 Exercise counseling Z71.[address] [address] Jun, Labyrinthitis of left ear H83.[address] [address] Jun, Tail bone pain M53.3 ; Irritable bowel s yndrome with both constipation and diarrhea K58.2 and Dysfunction of left eustachian tube H69.82 [place] [address] [address] Jun, Exercise counseling Z71.82 [place] [address] [address] Jun, Arthritis M19.[address] [address] Jun, Irritable bowel syndrome with both const ipation and diarrhea K58.2 ; Tail bone pain M53.3 and Dysfunction of left eustachian tube H69.82 [place] [address] [address] Jun, Exercise counseling Z71.82 [place] [address] [address] Jun, Exercise counseling Z71.82 [place] [address] [address] Jun, Labyrinthitis of left ear H83.02 [facility] [address] [address] May, Exercise counseling Z71.82 [facility] [address] [address] May, Arthritis M19.90 [facility] [address] [address] May, Exercise counseling Z71.82 [facility] [address] [address] May, Exercise counseling Z71.82 [facility] [address] [address] May, Labyrinthitis of left ear H83.02 [facility] [address] [address] May, Exercise counseling Z71.82 [facility] [address] [address] Apr, Arthritis M19.90 [facility] [address] [address] Apr, Exercise counseling Z71.82 [facility] [address] [address] Apr, Exercise counseling Z71.82 [facility] [address] [address] Apr, Primary osteoarthritis of left knee M17. 12 [facility] [address] [address] 08 Apr, 2018 Labyrinthitis of left ear H83.02 [facility] [address] [address] Mar, Arthritis M19.90 [facility] [address] [address] Mar, [facility] [address] [address] Mar, Chronic kidney disease, stage 4 (severe) N18.4 [facility] [address] [address] Mar, Chronic kidney disease, stage 4 (severe) N18.4 [facility] [address] [address] Mar, Labyrinthitis of left ear H83.02 [facility] [address] [address] Mar, Chronic kidney disease, stage 4 (severe) N18.4 ; Knee pain, left anterior M25.562 ; 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 and Encounter for immunization Z23 [place] [address] [address] Mar, Arthritis M19.90 [place] [address] [address] Feb, Labyrinthitis of left ear H83.02 [place] [address] [address] Feb, Arthritis M19.90 [place] [address] [address] Jan, Labyrinthitis of left ear H83.02 [place] [address] [address] Jan, Arthritis M19.90 [facility] [address] [address] Dec, Labyrinthitis of left ear H83.02 [place] [address] [address] Nov, Arthritis M19.90 [facility] [address] [address] Nov, Labyrinthitis of left ear H83.02 [place] [address] [address] Nov, BMI 40.0-44.9, adult Z68.41 ; Chronic ki dney disease, stage 4 (severe) N18.4 and Acute right-sided thoracic back pain M54.6 [place] [address] [address] October, Labyrinthitis of left ear H83.02 and Art hritis M19.90 [place] [address] [address] Sep, BPV (benign positional vertigo), bilater al H81.13 ; Dysfunction of left eustachian tube H69.82 and BMI 40.0-44.9, adult Z68.41 [place] [address] [address] Sep, Labyrinthitis of left ear H83.02 and Art hritis M19.90 [place] [address] [address] Sep, [place] [address] [address] Sep, [place] [address] [address] Sep, Chronic kidney disease, stage 4 (severe) N18.4 [place] [address] [address] Sep, Chronic kidney disease, stage 4 (severe) N18.4 [place] [address] [address] Aug, Labyrinthitis of left ear H83.02 and Art hritis M19.90 [place] [address] [address] Aug, [place] [address] [address] Jul, [place] [address] [address] Jul, Arthritis M19.90 and Labyrinthitis of le ft ear H83.02 [place] [address] [address] 08 Jul, 2017 [place] [address] [address] Jun, [place] [address] [address] Jun, Arthritis M19.90 and Labyrinthitis of le ft ear H83.02 [place] [address] [address] Jun, Pre-op evaluation Z01.818 ; BMI 40.0-44. 9, adult Z68.41 and Encounter for immunization Z23 [place] [address] [address] May, Arthritis M19.90 and Labyrinthitis of le ft ear H83.02 [place] [address] [address] Apr, Labyrinthitis of left ear H83.02 [place] [address] [address] Apr, Arthritis M19.90 and Labyrinthitis of le ft ear H83.02 [place] [address] [address] Mar, Arthritis M19.90 and Labyrinthitis of le ft ear H83.02 [place] [address] [address] 05 Mar, 2017 Chronic kidney disease, stage 4 (severe) N18.4 [place] [address] [address] 06 Feb, 2017 Arthritis M19.90 and Labyrinthitis of le ft ear H83.02 [place] [address] [address] Jan, Labyrinthitis of left ear H83.02 and Def iciency 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 [facility] [address] [address] Dec, Arthritis M19.90 [facility] [address] [address] Dec, BPV (benign positional vertigo), bilater al H81.13 [facility] [address] [address] Dec, [place] [address] [address] Dec, [place] [address] [address] Dec, [place] [address] [address] Nov, Arthritis M19.90 and 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 [place] [address] [address] Nov, Arthritis M19.90 [place] [address] [address] Nov, Hyperparathyroidism E21.3 [place] [address] [address] October, [place] [address] [address] October, Hyperparathyroidism E21.3 [facility] [address] [address] October, [address] [address] October, Renal insufficiency N28.9 and Hyperparat hyroidism E21.3 [facility] [address] [address] October, [facility] [address] [address] October, Renal insufficiency N28.9 and Hyperparat hyroidism E21.3 [facility] [address] [address] October, Arthritis M19.90 [facility] [address] [address] Sep, [facility] [address] [address] Sep, Lumbar neuritis M54.16 ; Thoracic absces s J86.9 and 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 [place] [address] [address] Sep, [place] [address] [address] Aug, Arthritis M19.90 [place] [address] [address] Aug, Hyperparathyroidism E21.3 [place] [address] [address] Aug, Hyperparathyroidism E21.3 [facility] [address] [address] Aug, Arthritis M19.90 [place] [address] [address] Jul, Mass of throat R22.1 [facility] [address] [address] Jul, [facility] [address] [address] Jul, Arthritis M19.90 [facility] [address] [address] Jun, Arthritis M19.90 [facility] [address] [address] Jun, [facility] [address] [address] Jun, Renal insufficiency N28.9 and Parathyroi d 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 [facility] [address] [address] Jun, Medicare welcome exam Z00.00 ; Encounter for immunization Z23 ; Arthritis M19.90 ; Medicare annual wellness visit, initial Z00.00 ; Medicare annual wellness visit, subsequent Z00.00 and 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 [place] [address] [address] May, Renal insufficiency N28.9 and Parathyroi d 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 [place] [address] [address] May, Renal insufficiency N28.9 [place] [address] [address] May, Renal insufficiency N28.9 [place] [address] [address] May, [place] [address] [address] Apr, [place] [address] [address] Apr, [place] [address] [address] 14 Apr, 2016 Mass of throat R22.1 [facility] [address] [address] 10 Apr, 2016 [facility] [address] [address] 10 Apr, 2016 Mass of throat R22.1 [place] [address] [address] 04 Apr, 2016 Mass of throat R22.1 [place] [address] [address] Mar, [facility] [address] [address] Mar, [facility] [address] [address] Mar, [facility] [address] [address] Mar, 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 for immunization Z23 [place] [address] [address] Mar, [place] [address] [address] Mar, [place] [address] [address] Feb, Renal insufficiency N28.9 and Hyperparat hyroidism E21.3 [place] [address] [address] 19 Feb, 2016 [place] [address] [address] 15 Feb, 2016 Renal insufficiency N28.9 and Hyperparat hyroidism E21.3 [place] [address] [address] 14 Feb, 2016 [place] [address] [address] 12 Feb, 2016 [place] [address] [address] 09 Feb, 2016 [place] [address] [address] Jan, [place] [address] [address] Jan, Arthritis M19.90 ; Lumbago with sciatica , right side M54.41 and Other chronic pain G89.29 [place] [address] [address] Jan, [place] [address] [address] Dec, Arthritis M19.90 ; Lumbago with sciatica , right side M54.41 and Other chronic pain G89.29 [place] [address] [address] Nov, Deficiency of other specified B group vi tamins E53.8 ; Primary insomnia F51.01 ; Mood disorder F39 and Lumbago with sciatica, right side M54.41 [place] [address] [address] Nov, Hyperparathyroidism E21.3 [place] [address] [address] Nov, Unspecified kidney failure N19 and Hyper parathyroidism E21.3 [place] [address] [address] October, Hyperparathyroidism E21.3 [place] [address] [address] October, [place] [address] [address] October, Hyperparathyroidism E21.3 [place] [address] [address] October, Hyperparathyroidism E21.3 [place] [address] [address] Sep, Hyperparathyroidism E21.3 ; Hypercholest erolemia E78.0 and Arthritis M19.90 [place] [address] [address] Aug, [place] [address] [address] Aug, Deficiency of other specified B group vi tamins E53.8 [place] [address] [address] Aug, [facility] [address] [place] [id number] [place] [address] Jul, Urinary frequency R35.0 [facility] [address] [place] [id number] [place] [address] Jul, Urinary frequency R35.0 [facility] [address] [place] [id number] [place] [address] Jul, [facility] [address] [address] Jul, [facility] [address] [address] Jun, Pain in left knee M25.562 [facility] [address] [address] Jun, [facility] [address] [address] May, Swelling of left knee joint M25.462 [facility] [address] [address] May, [facility] [address] [address] May, [facility] [address] [address] May, [facility] [address] [address] Apr, Renal insufficiency N28.9 and Chronic ki dney disease, stage 4 (severe) N18.4 [facility] [address] [address] Apr, Unspecified kidney failure N19 [facility] [address] [address] Apr, Unspecified kidney failure N19 [facility] [address] [address] Apr, [facility] [address] [address] Apr, Hyperparathyroidism, unspecified 252.00 [facility] [address] [address] Apr, [facility] [address] [address] Mar, [facility] [address] [address] Mar, [facility] [address] [address] Mar, Hyperparathyroidism, unspecified 252.00 [facility] [address] [address] Feb, [facility] [address] [address] Feb, Otalgia 388.70 [facility] [address] [address] Feb, [facility] [address] [address] Feb, [facility] [address] [address] Jan, [facility] [address] [address] Jan, Hyperparathyroidism, unspecified 252.00 [facility] [address] [address] Jan, [facility] [address] [address] Jan, Other B-complex deficiencies 266.2 and H yperparathyroidism, unspecified 252.00 [facility] [address] [address] Jan, [facility] [address] [address] Jan, [facility] [address] [place] [address] Jan, [facility] [address] [id number] [place] [address] Dec, [facility] [address] [id number] [place] [address] Dec, [facility] [id number] [place] [address] Dec, [facility] [id number] [place] [address] Nov, Routine check-up V70.0 and Pre-op exam V 72.84 [facility] [id number] [place] [address] Nov, [facility] [id number] [place] [address] Nov, [facility] [id number] [place] [address] October, [facility] [id number] [place] [address] October, Other B-complex deficiencies 266.2 [facility] [id number] [place] [address] October, [facility] [id number] [place] [address] Sep, [facility] [id number] [place] [address] Sep, [facility] [id number] [place] [address] Aug, [facility] [id number] [place] [address] Aug, [facility] [id number] [place] [address] Aug, [facility] [id number] [place] [address] Aug, [facility] [address] [id number] [place] [address] Aug, 2014 [facility] [address] [id number] [place] [address] Aug, 2014 [facility] [address] [id number] [place] [address] Jul, 2014 [facility] [address] [id number] [place] [address] Jul, 2014 [facility] [address] [id number] [place] [address] Jul, 2014 [facility] [address] [id number] [place] [address] Jul, 2014 [facility] [address] [id number] [place] [address] Jul, 2014 [facility] [address] [id number] [place] [address] Jul, 2014 [facility] [address] [id number] [place] [address] Jul, 2014 [facility] [address] [id number] [place] [address] Jul, 2014 [facility] [address] [id number] [place] [address] Jul, 2014 [facility] [address] [id number] [place] [address] Jul, 2014 [facility] [address] [id number] [place] [address] Jul, 2014 [facility] [address] [id number] [place] [address] Jul, 2014 [facility] [address] [id number] [place] [address] Jul, 2014 [facility] [address] [id number] [place] [address] Jul, 2014 [facility] [address] [id number] [place] [address] Jun, [facility] [address] [id number] [place] [address] Jun, [facility] [address] [id number] [place] [address] Jun, [facility] [address] [id number] [place] [address] Jun, [facility] [address] [id number] [place] [address] Jun, [facility] [facility] [address] [id number] [place] [address] Jun, [facility] [address] [id number] [place] [address] Jun, [facility] [address] [id number] [place] [address] Jun, [facility] [address] [id number] [place] [address] Jun, [facility] [address] [id number] [place] [address] Jun, [facility] [address] [id number] [place] [address] Jun, [facility] [address] [id number] [place] [address] Jun, [facility] [address] [id number] [place] [address] Jun, [facility] [address] [id number] [place] [address] Jun, [facility] [address] [id number] [place] [address] May, [facility] [address] [id number] [place] [address] May, [facility] [address] [id number] [place] [address] May, [facility] [address] [id number] [place] [address] May, [facility] [address] [id number] [place] [address] Apr, [facility] [address] [id number] [place] [address] Apr, [facility] [address] [id number] [place] [address] Apr, [facility] [address] [id number] [place] [address] Apr, [facility] [address] [id number] [place] [address] Apr, [facility] [address] [id number] [place] [address] Apr, [facility] [address] [id number] [place] [address] Mar, [facility] [address] [id number] [place] [address] 24 Mar, 2014 [facility] [address] [id number] [place] [address] Mar, [facility] [address] [id number] [place] [address] Mar, [facility] [address] [id number] [place] [address] 15 Mar, 2014 [facility] [address] [id number] [place] [address] 15 Mar, 2014 [facility] [address] [id number] [place] [address] 13 Mar, 2014 [facility] [address] [id number] [place] [address] 13 Mar, 2014 [facility] [address] [id number] [place] [address] 07 Mar, 2014 [facility] [address] [id number] [place] [address] Mar, 2013 [facility] [address] [facility] [id number] [place] [address] Mar, 2013 [facility] [address] [facility] [id number] [place] [address] Mar, 2013 [facility] [address] [facility] [id number] [place] [address] Mar, [facility] [address] [facility] [id number] [place] [address] Feb, 2013 [facility] [address] [facility] [id number] [place] [address] Feb, 2013 [facility] [address] [id number] [place] [address] Feb, [facility] [address] [id number] [place] [address] Feb, 2013 [facility] [address] [id number] [place] [address] Feb, 2013 [facility] [address] [facility] [id number] [place] [address] Feb, 2013 [facility] [address] [id number] [place] [address] Feb, [facility] [address] [id number] [place] [address] Feb, 2013 [facility] [address] [id number] [place] [address] Feb, [facility] [address] [facility] [id number] [place] [address] Feb, [facility] [address] [facility] [id number] [place] [address] Jan, [facility] [address] [facility] [id number] [place] [address] Jan, [facility] [address] [id number] [place] [address] Dec, [facility] [address] [id number] [place] [address] Dec, [facility] [address] [id number] [place] [address] Dec, [facility] [address] [facility] [id number] [place] [address] Dec, [facility] [address] [id number] [place] [address] Dec, [facility] [address] [facility] [id number] [place] [address] Dec, [facility] [address] [facility] [id number] [place] [address] Nov, [facility] [address] [id number] [place] [address] Nov, [facility] [address] [id number] [place] [address] Nov, [facility] [address] [id number] [place] [address] Nov, [facility] [address] [facility] [id number] [place] [address] October, [facility] [address] [id number] [place] [address] October, [facility] [address] [id number] [place] [address] October, [facility] [address] [id number] [place] [address] October, [facility] [address] [facility] [id number] [place] [address] October, [facility] [address] [id number] [place] [address] October, [facility] [address] [id number] [place] [address] October, [facility] [address] [id number] [place] [address] October, [facility] [address] [id number] [place] [address] October, [facility] [address] [id number] [place] [address] October, [facility] [address] [id number] [place] [address] October, [facility] [address] [id number] [place] [address] October, [facility] [address] [id number] [place] [address] October, [facility] [address] [id number] [place] [address] October, [facility] [address] [id number] [place] [address] October, [facility] [address] [id number] [place] [address] October, [facility] [address] [id number] [place] [address] Sep, [facility] [address] [id number] [place] [address] Sep, [facility] [address] [id number] [place] [address] Sep, [facility] [address] [id number] [place] [address] Sep, [facility] [address] [id number] [place] [address] Sep, [facility] [address] [id number] [place] [address] Sep, [facility] [address] [id number] [place] [address] Aug, [facility] [address] [id number] [place] [address] Aug, [facility] [address] [id number] [place] [address] Aug, [facility] [address] [id number] [place] [address] Aug, [facility] [address] [id number] [place] [address] Aug, [facility] [address] [id number] [place] [address] Aug, [facility] [address] [id number] [place] [address] Jul, [facility] [address] [facility] [id number] [place] [address] Jul, [facility] [address] [id number] [place] [address] Jul, [facility] [address] [id number] [place] [address] Jul, [facility] [address] [id number] [place] [address] Jun, [facility] [address] [id number] [place] [address] Jun, [facility] [address] [id number] [place] [address] May, [facility] [address] [id number] [place] [address] May, [facility] [address] [id number] [place] [address] May, [facility] [address] [id number] [place] [address] May, [facility] [address] [id number] [place] [address] May, [facility] [address] [id number] [place] [address] Apr, [facility] [address] [id number] [place] [address] Apr, [facility] [address] [id number] [place] [address] Apr, [facility] [address] [facility] [id number] [place] [address] Apr, [facility] [address] [id number] [place] [address] Apr, [facility] [address] [id number] [place] [address] 04 Apr, 2013 [facility] [address] [id number] [place] [address] 15 Mar, 2013 [facility] [address] [id number] [place] [address] 15 Mar, 2013 [facility] [address] [id number] [place] [address] 14 Mar, 2013 [facility] [address] [id number] [place] [address] 14 Mar, 2013 [facility] [address] [id number] [place] [address] Mar, [facility] [address] [id number] [place] [address] Mar, [facility] [address] [id number] [place] [address] 23 Feb, 2013 [facility] [address] [id number] [place] [address] Feb, [facility] [address] [id number] [place] [address] 04 Feb, 2013 [facility] [address] [facility] [id number] [place] [address] 30 Jan, 2013 [facility] [address] [id number] [place] [address] Jan, [facility] [address] [id number] [place] [address] Jan, [facility] [address] [id number] [place] [address] Jan, [facility] [address] [facility] [id number] [place] [address] Jan, [facility] [address] [id number] [place] [address] Jan, [facility] [address] [facility] [id number] [place] [address] Dec, [facility] [address] [id number] [place] [address] Dec, [facility] [address] [facility] [id number] [place] [address] Dec, [facility] [address] [id number] [place] [address] Dec, [facility] [address] [id number] [place] [address] Dec, [facility] [address] [id number] [place] [address] Dec, [facility] [address] [id number] [place] [address] Nov, [facility] [address] [id number] [place] [address] Nov, [facility] [address] [id number] [place] [address] Nov, [facility] [address] [id number] [place] [address] Nov, [facility] [address] [id number] [place] [address] Nov, [facility] [address] [id number] [place] [address] Nov, [facility] [address] [id number] [place] [address] October, [facility] [address] [id number] [place] [address] October, [facility] [address] [id number] [place] [address] October, [facility] [address] [id number] [place] [address] October, [facility] [address] [id number] [place] [address] October, [facility] [address] [id number] [place] [address] Sep, [facility] [address] [id number] [place] [address] Sep, [facility] [address] [id number] [place] [address] Sep, [facility] [address] [id number] [place] [address] Sep, [facility] [address] [id number] [place] [address] Sep, [facility] [address] [id number] [place] [address] Aug, [facility] [address] [id number] [place] [address] Aug, [facility] [address] [id number] [place] [address] Aug, [facility] [address] [id number] [place] [address] Jul, [facility] [address] [id number] [place] [address] Jul, [facility] [address] [id number] [place] [address] Jul, [facility] [address] [id number] [place] [address] 08 Jul, 2012 [facility] [address] [id number] [place] [address] 06 Jul, 2012 [facility] [address] [id number] [place] [address] 05 Jul, 2012 [facility] [address] [id number] [place] [address] Jun, [facility] [address] [id number] [place] [address] Apr, [facility] [address] [id number] [place] [address] Apr, [facility] [id number] [place] [address] Apr, [facility] [address] [id number] [place] [address] Apr, [facility] [address] [id number] [place] [address] Mar, [facility] [address] [id number] [place] [address] Mar, [facility] [id number] [place] [address] Mar, [facility] [id number] [place] [address] Mar, [facility] [id number] [place] [address] Mar, [facility] [address] [id number] [place] [address] Feb, [facility] [address] [id number] [place] [address] Jan, [facility] [address] [id number] [place] [address] Jan, [facility] [address] [id number] [place] [address] Jan, [facility] [id number] [place] [address] Dec, [facility] [address] [id number] [place] [address] Nov, [facility] [id number] [place] [address] Nov, [facility] [address] [id number] [place] [address] Nov, [facility] [address] [id number] [place] [address] Nov, [facility] [address] [id number] [place] [address] Nov, [facility] [id number] [place] [address] October, [facility] [id number] [place] [address] October, [facility] [id number] [place] [address] October, [facility] [address] [id number] [place] [address] October, [facility] [address] [id number] [place] [address] October, IMMUNIZATIONS No Known Immunizations SOCIAL HISTORY [...]
--- OUTSIDE RECORDS SUMMARY | 2020-01-25 07:41 | XMS REPORT ---
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41 Active 264937872 ALLERGIES No Information ENCOUNTERS Encounter Location Date Diagnosis [facility] [address] [facility] [id number] [address] [place] [id number] Apr, [facility] [address] [facility] [id number] [address] [place] [id number] Mar, [facility] [address] [facility] [id number] [address] [place] [phone] Mar, [facility] [address] [facility] [id number] [address] [place] [id number] Mar, Arthritis M19.90 and Encount er for immunization Z23 [facility] [address] [id number] [address] [place] [id number] Feb, Arthritis M19.90 [facility] [address] [id number] [address] [place] [id number] Feb, [facility] [address] [facility] [id number] [address] [place] [id number] Feb, Other specified disorders of bone density and structure, unspecified site M85.80 [facility] [address] [id number] [address] [place] [id number] Jan, Arthritis M19.90 [facility] [address] [facility] [id number] [address] [place] [id number] Dec, Arthritis M19.90 [facility] [address] [facility] [id number] [address] [place] [id number] Nov, Inflammatory spondylopathy o f sacral region M46.98 [facility] [address] [id number] [address] [place] [id number] Nov, [facility] [address] [facility] [id number] [address] [place] [id number] Nov, Labyrinthitis of left ear H8 3.02 [facility] [address] [facility] [id number] [address] [place] [id number] Nov, Arthritis M19.90 [facility] [address] [id number] [address] [place] [id number] 15 Sep, 2018 Arthritis M19.90 [facility] [address] [facility] [id number] [address] [place] [id number] Sep, Renal insufficiency N28.9 an d Unspecified kidney failure N19 [facility] [address] [facility] [id number] [address] [place] [phone] Sep, Renal insufficiency N28.9 an d Unspecified kidney failure N19 [facility] [address] [id number] [address] [place] [id number] 08 Sep, 2018 Arthritis M19.90 [facility] [address] [id number] [address] [place] [id number] Aug, Exercise counseling Z71.82 [facility] [address] [facility] [id number] [address] [place] [id number] Aug, [facility] [address] [id number] [address] [place] [id number] 27 Jul, 2018 Labyrinthitis of left ear H8 3.02 [facility] [address] [facility] [id number] [address] [place] [id number] 22 Jul, 2018 Labyrinthitis of left ear H8 3.02 [facility] [address] [facility] [id number] [address] [place] [id number] 19 Jul, 2018 Exercise counseling Z71.82 [facility] [address] [id number] [address] [place] [phone] 18 Jul, 2018 [facility] [address] [facility] [id number] [address] [place] [id number] 14 Jul, 2018 Arthritis M19.90 [facility] [address] [facility] [id number] [address] [place] [id number] 13 Jul, 2018 Encounter for Medicare annua l wellness exam Z00.00 ; Chronic kidney disease, stage 4 (severe) N18.4 ; Body mass index (BMI) of 40.0-44.9 in adult Z68.41 ; Hyperparathyroidism E21.3 and BMI 40.0-44.9, adult Z68.41 [facility] [address] [facility] [id number] [address] [place] [id number] 13 Jul, 2018 Encounter for Medicare annua l wellness exam Z00.00 ; Chronic kidney disease, stage 4 (severe) N18.4 ; Hyperparathyroidism E21.3 ; Body mass index (BMI) of 40.0-44.9 in adult Z68.41 and Encounter for immunization Z23 [facility] [address] [id number] [address] [place] [id number] 11 Jul, 2018 Tail bone pain M53.3 [facility] [address] [id number] [address] [place] [id number] Jun, Exercise counseling Z71.82 [facility] [address] [id number] [address] [place] [id number] Jun, Labyrinthitis of left ear H8 3.02 [facility] [address] [id number] [address] [place] [id number] Jun, Tail bone pain M53.3 ; Irrit able bowel syndrome with both constipation and diarrhea K58.2 and Dysfunction of left eustachian tube H69.82 [facility] [address] [id number] [address] [place] [id number] Jun, Exercise counseling Z71.82 [facility] [address] [id number] [address] [place] [id number] Jun, Arthritis M19.90 [facility] [address] [id number] [address] [place] [id number] Jun, Irritable bowel syndrome wit h both constipation and diarrhea K58.2 ; Tail bone pain M53.3 and Dysfunction of left eustachian tube H69.82 [facility] [address] [id number] [address] [place] [id number] Jun, Exercise counseling Z71.82 [facility] [address] [id number] [address] [place] [id number] Jun, Exercise counseling Z71.82 [facility] [place] [address] [facility] [id number] [address] [place] [id number] Jun, Labyrinthitis of left ear H8 3.02 [facility] [address] [id number] [address] [place] [id number] May, Exercise counseling Z71.82 [facility] [address] [id number] [address] [place] [id number] May, Arthritis M19.90 [facility] [address] [id number] [address] [place] [id number] May, Exercise counseling Z71.82 [facility] [address] [id number] [address] [place] [id number] May, Exercise counseling Z71.82 [facility] [address] [id number] [address] [place] [id number] May, Labyrinthitis of left ear H8 3.02 [facility] [address] [id number] [address] [place] [id number] May, Exercise counseling Z71.82 [facility] [address] [id number] [address] [place] [id number] Apr, Arthritis M19.90 [facility] [address] [id number] [address] [place] [id number] Apr, Exercise counseling Z71.82 [facility] [address] [id number] [address] [place] [id number] Apr, Exercise counseling Z71.82 [facility] [address] [id number] [address] [place] [id number] 08 Apr, 2018 Primary osteoarthritis of le ft knee M17.12 [facility] [address] [id number] [address] [place] [id number] 08 Apr, 2018 Labyrinthitis of left ear H8 3.02 [facility] [address] [id number] [address] [place] [id number] Mar, Arthritis M19.90 [facility] [address] [id number] [address] [place] [id number] Mar, [facility] [address] [facility] [id number] [address] [place] [id number] Mar, Chronic kidney disease, stag e 4 (severe) N18.4 [facility] [address] [facility] [id number] [address] [place] [id number] Mar, Chronic kidney disease, stag e 4 (severe) N18.4 [facility] [address] [facility] [id number] [address] [place] [id number] Mar, Labyrinthitis of left ear H8 3.02 [facility] [address] [place] [id number] [address] [place] [id number] Mar, Chronic kidney disease, stag e 4 (severe) N18.4 ; Knee pain, left anterior M25.562 ; 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 and Encounter for immunization Z23 [facility] [place] [address] [facility] [id number] [address] [place] [id number] Mar, Arthritis M19.90 [facility] [address] [place] [id number] [place] [phone] Feb, Labyrinthitis of left ear H8 3.02 [facility] [address] [place] [id number] [address] [place] [id number] Feb, Arthritis M19.90 [facility] [address] [place] [id number] [address] [place] [id number] Jan, Labyrinthitis of left ear H8 3.02 [facility] [address] [place] [id number] [address] [place] [id number] Jan, Arthritis M19.90 [facility] [address] [facility] [id number] [address] [place] [id number] Dec, Labyrinthitis of left ear H8 3.02 [facility] [address] [facility] [id number] [address] [place] [id number] Nov, Arthritis M19.90 [facility] [address] [place] [id number] [address] [place] [id number] Nov, Labyrinthitis of left ear H8 3.02 [facility] [address] [place] [id number] [address] [place] [id number] Nov, BMI 40.0-44.9, adult Z68.41 ; Chronic kidney disease, stage 4 (severe) N18.4 and Acute right-sided thoracic back pain M54.6 [facility] [address] [place] [id number] [address] [place] [id number] October, Labyrinthitis of left ear H8 3.02 and Arthritis M19.90 [facility] [place] [address] [place] [id number] [place] [id number] Sep, BPV (benign positional verti go), bilateral H81.13 ; Dysfunction of left eustachian tube H69.82 and BMI 40.0-44.9, adult Z68.41 [facility] [place] [address] [place] [id number] [place] [phone] Sep, Labyrinthitis of left ear H8 3.02 and Arthritis M19.90 [facility] [address] [place] [id number] [place] [phone] Sep, [facility] [place] [address] [place] [id number] [place] [phone] Sep, [facility] [address] [place] [id number] [place] [id number] Sep, Chronic kidney disease, stag e 4 (severe) N18.4 [facility] [address] [place] [id number] [address] [place] [id number] Sep, Chronic kidney disease, stag e 4 (severe) N18.4 [facility] [address] [facility] [id number] [address] [place] [id number] Aug, Labyrinthitis of left ear H8 3.02 and Arthritis M19.90 [place] [address] [place] [id number] [address] [place] [phone] Aug, [place] [address] [place] [id number] [address] [place] [id number] Jul, [facility] [address] [facility] [id number] [address] [place] [id number] Jul, Arthritis M19.90 and Labyrin thitis of left ear H83.02 [facility] [address] [facility] [id number] [address] [place] [id number] Jul, [facility] [place] [address] [place] [id number] [place] [phone] Jun, [facility] [address] [place] [id number] [place] [phone] Jun, Arthritis M19.90 and Labyrin thitis of left ear H83.02 [facility] [place] [address] [place] [id number] [place] [id number] Jun, Pre-op evaluation Z01.818 ; BMI 40.0-44.9, adult Z68.41 and Encounter for immunization Z23 [facility] [address] [place] [id number] [address] [place] [id number] May, Arthritis M19.90 and Labyrin thitis of left ear H83.02 [facility] [address] [place] [id number] [address] [place] [id number] Apr, Labyrinthitis of left ear H8 3.02 [facility] [address] [place] [id number] [address] [place] [id number] Apr, Arthritis M19.90 and Labyrin thitis of left ear H83.02 [place] [address] [place] [id number] [address] [place] [id number] Mar, Arthritis M19.90 and Labyrin thitis of left ear H83.02 [facility] [address] [place] [id number] [address] [place] [phone] 05 Mar, 2017 Chronic kidney disease, stag e 4 (severe) N18.4 [facility] [address] [place] [id number] [address] [place] [id number] Feb, Arthritis M19.90 and Labyrin thitis of left ear H83.02 [facility] [address] [facility] [id number] [address] [place] [id number] Jan, Labyrinthitis of left ear H8 3.02 and 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 [facility] [address] [facility] [id number] [address] [place] [id number] Dec, Arthritis M19.90 [facility] [address] [facility] [id number] [address] [place] [id number] Dec, BPV (benign positional verti go), bilateral H81.13 [facility] [address] [facility] [id number] [address] [place] [phone] Dec, [facility] [address] [place] [id number] [address] [place] [phone] Dec, [facility] [address] [facility] [id number] [address] [place] [id number] Dec, [facility] [address] [facility] [id number] [address] [place] [phone] Nov, Arthritis M19.90 and Deficie ncy 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 [facility] [address] [facility] [id number] [address] [place] [id number] Nov, Arthritis M19.90 [facility] [address] [facility] [id number] [address] [place] [address] Nov, Hyperparathyroidism E21.3 [facility] [address] [facility] [id number] [address] [place] [phone] October, [facility] [address] [facility] [id number] [address] [place] [phone] October, Hyperparathyroidism E21.3 [facility] [address] [place] [id number] [address] [place] [id number] October, [facility] [address] [place] [id number] [address] [place] [id number] October, Renal insufficiency N28.9 an d Hyperparathyroidism E21.3 [facility] [address] [facility] [id number] [address] [place] [phone] October, [facility] [address] [place] [id number] [address] [place] [id number] October, Renal insufficiency N28.9 an d Hyperparathyroidism E21.3 [facility] [address] [facility] [id number] [address] [place] [phone] October, Arthritis M19.90 [facility] [address] [place] [id number] [address] [place] [address] Sep, [facility] [address] [phone] Sep, Lumbar neuritis M54.16 ; Tho racic abscess J86.9 and 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 [facility] [address] [facility] [id number] [address] [place] [id number] Sep, [facility] [address] [place] [id number] [address] [place] [address] Aug, Arthritis M19.90 [facility] [address] [place] [id number] [address] [place] [id number] Aug, Hyperparathyroidism E21.3 [facility] [id number] [place] [id number] Aug, Hyperparathyroidism E21.3 [facility] [address] [place] [id number] [address] [place] [id number] Aug, Arthritis M19.90 [facility] [address] [place] [id number] [address] [place] [id number] Jul, Mass of throat R22.1 [facility] [address] [place] [id number] [address] [place] [id number] Jul, [facility] [address] [place] [id number] [address] [place] [id number] 10 Jul, 2016 Arthritis M19.90 [facility] [address] [facility] [id number] [address] [place] [id number] Jun, Arthritis M19.90 [facility] [address] [facility] [id number] [address] [place] [id number] Jun, [facility] [address] [facility] [id number] [address] [place] [id number] Jun, Renal insufficiency N28.9 an d 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 [facility] [address] [facility] [id number] [address] [place] [id number] 05 Jun, 2016 Medicare welcome exam Z00.00 ; Encounter for immunization Z23 ; Arthritis M19.90 ; Medicare annual wellness visit, initial Z00.00 ; Medicare annual wellness visit, subsequent Z00.00 and 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 [facility] [address] [facility] [id number] [address] [place] [id number] 29 May, 2016 Renal insufficiency N28.9 an d 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 [facility] [address] [facility] [id number] [address] [place] [id number] 19 May, 2016 Renal insufficiency N28.9 [facility] [address] [facility] [id number] [address] [place] [phone] 16 May, 2016 Renal insufficiency N28.9 [facility] [address] [facility] [id number] [address] [place] [phone] 14 May, 2016 [facility] [address] [facility] [id number] [address] [place] [id number] Apr, [facility] [address] [place] [id number] [address] [place] [id number] Apr, [facility] [address] [place] [id number] [address] [place] [id number] 14 Apr, 2016 Mass of throat R22.1 [facility] [address] [place] [id number] [address] [place] [phone] 10 Apr, 2016 [facility] [address] [id number] [address] [place] [id number] 10 Apr, 2016 Mass of throat R22.1 [facility] [address] [id number] [address] [place] [id number] 04 Apr, 2016 Mass of throat R22.1 [facility] [address] [id number] [address] [place] [id number] Mar, [facility] [address] [id number] [address] [place] [phone] Mar, [facility] [address] [id number] [address] [place] [phone] Mar, [facility] [address] [facility] [id number] [address] [place] [id number] 24 Mar, 2016 Parathyroid abnormality E21. 5 and Encounter for immunization Z23 [facility] [address] [id number] [address] [place] [id number] 17 Mar, 2016 [facility] [address] [facility] [id number] [address] [place] [id number] 11 Mar, 2016 [facility] [address] [facility] [id number] [address] [place] [phone] 21 Feb, 2016 Renal insufficiency N28.9 an d Hyperparathyroidism E21.3 [facility] [address] [id number] [address] [place] [phone] 19 Feb, 2016 [facility] [address] [id number] [address] [place] [phone] 15 Feb, 2016 Renal insufficiency N28.9 an d Hyperparathyroidism E21.3 [facility] [address] [facility] [id number] [address] [place] [phone] 14 Feb, 2016 [facility] [address] [facility] [id number] [address] [place] [phone] 12 Feb, 2016 [facility] [address] [place] [id number] [address] [place] [phone] Feb, [facility] [address] [facility] [id number] [address] [place] [id number] Jan, [facility] [address] [place] [id number] [address] [place] [phone] Jan, Arthritis M19.90 ; Lumbago w ith sciatica, right side M54.41 and Other chronic pain G89.29 [facility] [address] [place] [id number] [address] [place] [phone] Jan, [facility] [address] [phone] Dec, Arthritis M19.90 ; Lumbago w ith sciatica, right side M54.41 and Other chronic pain G89.29 [place] [address] [id number] Nov, Deficiency of other specifie d B group vitamins E53.8 ; Primary insomnia F51.01 ; Mood disorder F39 and Lumbago with sciatica, right side M54.41 [facility] [address] [place] [id number] [address] [place] [phone] Nov, Hyperparathyroidism E21.3 [facility] [address] [place] [id number] [place] [phone] Nov, Unspecified kidney failure N 19 and Hyperparathyroidism E21.3 [facility] [address] [place] [id number] [address] [place] [phone] October, Hyperparathyroidism E21.3 [facility] [address] [place] [id number] [address] [place] [phone] October, [facility] [address] [phone] October, Hyperparathyroidism E21.3 [facility] [address] [place] [id number] [place] [phone] October, Hyperparathyroidism E21.3 [facility] [address] [facility] [id number] [address] [place] [phone] Sep, Hyperparathyroidism E21.3 ; Hypercholesterolemia E78.0 and Arthritis M19.90 [facility] [address] [facility] [id number] [address] [place] [id number] Aug, [facility] [address] [id number] [address] [place] [address] Aug, Deficiency of other specifie d B group vitamins E53.8 [facility] [address] [facility] [id number] [address] [place] [address] Aug, [facility] [id number] [place] [address] Jul, Urinary frequency R35.0 [facility] [address] [id number] [address] [place] [address] Jul, Urinary frequency R35.0 [facility] [address] [id number] [address] [place] [address] Jul, [facility] [address] [id number] [address] [place] [address] Jul, [facility] [address] [id number] [address] [place] [address] Jun, Pain in left knee M25.562 [facility] [address] [id number] [address] [place] [address] Jun, [facility] [address] [id number] [address] [place] [address] May, Swelling of left knee joint M25.462 [facility] [address] [id number] [address] [place] [address] May, [facility] [address] [id number] [address] [place] [address] May, [facility] [address] [id number] [address] [place] [address] May, [facility] [address] [id number] [address] [place] [address] Apr, Renal insufficiency N28.9 an d Chronic kidney disease, stage 4 (severe) N18.4 [facility] [address] [id number] [address] [place] [address] Apr, Unspecified kidney failure N 19 [facility] [address] [id number] [address] [place] [address] Apr, Unspecified kidney failure N 19 [facility] [address] [id number] [address] [place] [address] Apr, [facility] [address] [facility] [id number] [address] [place] [address] Apr, Hyperparathyroidism, unspeci fied 252.00 [facility] [address] [facility] [id number] [address] [place] [address] Apr, [facility] [address] [id number] [address] [place] [address] Mar, [facility] [address] [id number] [address] [place] [address] Mar, [facility] [address] [facility] [id number] [address] [place] [address] Mar, Hyperparathyroidism, unspeci fied 252.00 [facility] [address] [id number] [address] [place] [address] Feb, [facility] [address] [facility] [id number] [address] [place] [address] Feb, Otalgia 388.70 [facility] [address] [facility] [id number] [address] [place] [address] Feb, [facility] [address] [facility] [id number] [address] [place] [address] Feb, [facility] [address] [id number] [address] [place] [address] Jan, [facility] [address] [id number] [address] [place] [address] Jan, Hyperparathyroidism, unspeci fied 252.00 [facility] [address] [id number] [address] [place] [address] Jan, [facility] [address] [id number] [address] [place] [address] Jan, Other B-complex deficiencies 266.2 and Hyperparathyroidism, unspecified 252.00 [facility] [address] [id number] [address] [place] [address] Jan, [facility] [address] [id number] [address] [place] [address] Jan, [facility] [address] [id number] [address] [place] [address] Jan, [facility] [address] [id number] [address] [place] [id number] Dec, [facility] [address] [id number] [address] [place] [address] Dec, [facility] [address] [id number] [address] [place] [address] Dec, [facility] [address] [id number] [address] [place] [address] Nov, Routine check-up V70.0 and P re-op exam V72.84 [facility] [address] [id number] [address] [place] [address] Nov, [facility] [address] [id number] [address] [place] [address] Nov, [facility] [address] [id number] [address] [place] [address] October, [facility] [address] [id number] [address] [place] [address] October, Other B-complex deficiencies 266.2 [facility] [address] [id number] [address] [place] [address] October, [facility] [address] [id number] [address] [place] [address] 14 Sep, 2014 [facility] [address] [id number] [address] [place] [id number] 13 Sep, 2014 [facility] [address] [id number] [address] [place] [id number] 20 Aug, 2014 [facility] [address] [id number] [address] [place] [address] 20 Aug, 2014 [facility] [address] [id number] [address] [place] [id number] 17 Aug, 2014 [facility] [address] [id number] [address] [place] [id number] 17 Aug, 2014 [facility] [address] [id number] [address] [place] [address] Aug, [facility] [address] [id number] [address] [place] [address] Aug, [facility] [address] [id number] [address] [place] [id number] 18 Jul, 2014 [facility] [address] [id number] [address] [place] [id number] 18 Jul, 2014 [facility] [address] [id number] [address] [place] [id number] 17 Jul, 2014 [facility] [address] [id number] [address] [place] [address] Jul, [facility] [address] [id number] [address] [place] [id number] 12 Jul, 2014 [facility] [address] [id number] [address] [place] [id number] Jul, [facility] [address] [id number] [address] [place] [address], [place] [address] Jul, 2014 [facility] [address] [id number] [address] [place] [address], [place] [address] Jul, 2014 [facility] [address] [id number] [address] [place] [address], [place] [address] Jul, 2014 [facility] [address] [id number] [address] [place] [address], [place] [address] Jul, 2014 [facility] [address] [id number] [address] [place] [address], [place] [address] Jul, 2014 [facility] [address] [id number] [address] [place] [address], [place] [address] Jul, 2014 [facility] [address] [id number] [address] [place] [address], [place] [address] Jul, 2014 [facility] [address] [id number] [address] [place] [address], [place] [address] Jul, [facility] [address] [id number] [address] [place] [address], [place] [address] Jun, [facility] [address] [id number] [address] [place] [address], [place] [address] Jun, [facility] [address] [id number] [address] [place] [address], [place] [address] Jun, [facility] [address] [id number] [address] [place] [address], [place] [address] Jun, [facility] [address] [id number] [address] [place] [address], [place] [address] Jun, [facility] [address] [id number] [address] [place] [address], [place] [address] Jun, [facility] [address] [id number] [address] [place] [address], [place] [address] Jun, [facility] [address] [id number] [address] [place] [address], [place] [address] Jun, [facility] [address] [id number] [address] [place] [address], [place] [address] Jun, [facility] [address] [id number] [address] [place] [address], [place] [address] Jun, [facility] [address] [id number] [address] [place] [address], [place] [address] Jun, [facility] [address] [id number] [address] [place] [address], [place] [address] Jun, [facility] [address] [id number] [address] [place] [address], [place] [address] Jun, [facility] [address] [id number] [address] [place] [address], [place] [address] Jun, [facility] [address] [id number] [address] [place] [address], [place] [address] May, [facility] [address] [id number] [address] [place] [address], [place] [address] May, [facility] [address] [id number] [address] [place] [address], [place] [address] May, [facility] [address] [id number] [address] [place] [address], [place] [address] May, [facility] [address] [id number] [address] [place] [address], [place] [address] Apr, [facility] [address] [id number] [address] [place] [address], [place] [address] Apr, [facility] [address] [id number] [address] [place] [address], [place] [address] Apr, [facility] [address] [id number] [address] [place] [address], [place] [address] Apr, [facility] [address] [id number] [address] [place] [address], [place] [address] Apr, [facility] [address] [id number] [address] [place] [address], [place] [address] Apr, [facility] [address] [id number] [address] [place] [address], [place] [address] Mar, [facility] [address] [id number] [address] [place] [address], [place] [address] Mar, [facility] [address] [id number] [address] [place] [address], [place] [address] Mar, [facility] [address] [id number] [address] [place] [address], [place] [address] Mar, [facility] [address] [id number] [address] [place] [address], [place] [address] Mar, [facility] [address] [id number] [address] [place] [address], [place] [address] Mar, [facility] [address] [id number] [address] [place] [address] Mar, [facility] [address] [id number] [address] [place] [address], [place] [address] Mar, [facility] [address] [id number] [address] [place] [address] Mar, [facility] [address] [id number] [address] [place] [address] Mar, [facility] [address] [id number] [address] [place] [address] Mar, [facility] [address] [id number] [address] [place] [address] Mar, [facility] [address] [id number] [address] [place] [address] Mar, [facility] [address] [id number] [address] [place] [address] Feb, [facility] [address] [id number] [address] [place] [address] 26 Feb, 2013 [facility] [address] [id number] [address] [place] [address], [place] [address] 23 Feb, 2013 [facility] [address] [id number] [address] [place] [address], [place] [address] 23 Feb, 2014 [facility] [address] [id number] [address] [place] [address], [place] [address] 19 Feb, 2014 [facility] [address] [id number] [address] [place] [address], [place] [address] 19 Feb, 2014 [facility] [address] [id number] [address] [place] [address], [place] [address] 13 Feb, 2014 [facility] [address] [id number] [address] [place] [address], [place] [address] Feb, [facility] [address] [id number] [address] [place] [address], [place] [address] Feb, [facility] [address] [id number] [address] [place] [address], [place] [address] Feb, [facility] [address] [id number] [address] [place] [address], [place] [address] Jan, [facility] [address] [id number] [address] [place] [address], [place] [address] Jan, [facility] [address] [id number] [address] [place] [address], [place] [address] Dec, [facility] [address] [id number] [address] [place] [address], [place] [address] Dec, [facility] [address] [id number] [address] [place] [address], [place] [address] Dec, [facility] [address] [id number] [address] [place] [address], [place] [address] Dec, [facility] [address] [id number] [address] [place] [address], [place] [address] Dec, [facility] [address] [id number] [facility] [place] [address] Dec, [facility] [address] [id number] [facility] [place] [address] Nov, [facility] [address] [id number] [facility] [place] [address] Nov, [facility] [address] [id number] [address] [place] [address] Nov, [facility] [address] [id number] [facility] [place] [address] Nov, [facility] [address] [id number] [facility] [place] [address] October, [facility] [address] [id number] [address] [place] [address], [place] [address] October, [facility] [address] [id number] [address] [place] [address], [place] [address] October, [facility] [address] [id number] [address] [place] [address], [place] [address] October, [facility] [address] [id number] [address] [place] [address], [place] [address] October, [facility] [address] [id number] [address] [place] [address], [place] [address] October, [facility] [address] [id number] [address] [place] [address], [place] [address] October, [facility] [address] [id number] [address] [place] [address], [place] [address] October, [facility] [address] [id number] [address] [place] [address], [place] [address] October, [facility] [address] [id number] [address] [place] [address], [place] [address] October, [facility] [address] [id number] [address] [place] [address], [place] [address] October, [facility] [address] [id number] [address] [place] [address] October, [facility] [address] [id number] [address] [place] [address] October, [facility] [address] [id number] [address] [place] [address] October, [facility] [address] [id number] [address] [place] [address], [place] [address] October, [facility] [address] [id number] [address] [place] [address], [place] [address] October, [facility] [address] [id number] [address] [place] [address], [place] [address] Sep, [facility] [address] [id number] [address] [place] [address], [place] [address] Sep, [facility] [address] [id number] [address] [place] [address], [place] [address] Sep, [facility] [address] [id number] [address] [place] [address], [place] [address] Sep, [facility] [address] [id number] [address] [place] [address], [place] [address] Sep, [facility] [address] [id number] [address] [place] [address], [place] [address] Sep, [facility] [address] [id number] [address] [place] [address], [place] [address] Aug, [facility] [address] [id number] [address] [place] [address], [place] [address] Aug, [facility] [address] [id number] [address] [place] [address], [place] [address] Aug, [facility] [address] [id number] [address] [place] [address], [place] [address] Aug, [facility] [address] [id number] [address] [place] [address], [place] [address] 05 Aug, 2013 [facility] [address] [id number] [address] [place] [address], [place] [address] Aug, [facility] [address] [id number] [address] [place] [address], [place] [address] Jul, [facility] [address] [id number] [address] [place] [address], [place] [address] Jul, [facility] [address] [id number] [address] [place] [address], [place] [address] Jul, [facility] [address] [id number] [address] [place] [address], [place] [address] Jul, [facility] [address] [id number] [address] [place] [address], [place] [address] Jun, [facility] [address] [id number] [address] [place] [address], [place] [address] Jun, [facility] [address] [id number] [address] [place] [address], [place] [address] May, [facility] [address] [id number] [address] [place] [address], [place] [address] May, [facility] [address] [id number] [address] [place] [address], [place] [address] May, [facility] [address] [id number] [address] [place] [address], [place] [address] May, [facility] [address] [id number] [address] [place] [address], [place] [address] May, [facility] [address] [id number] [address] [place] [address], [place] [address] Apr, [facility] [address] [id number] [address] [place] [address], [place] [address] Apr, [facility] [address] [id number] [address] [place] [address], [place] [address] Apr, [facility] [address] [id number] [address] [place] [address], [place] [address] Apr, [facility] [address] [id number] [address] [place] [address], [place] [address] Apr, [facility] [address] [id number] [address] [place] [address], [place] [address] Apr, [facility] [address] [id number] [address] [place] [address], [place] [address] 15 Mar, 2013 [facility] [address] [id number] [address] [place] [address], [place] [address] 15 Mar, 2013 [facility] [address] [id number] [address] [place] [address], [place] [address] 14 Mar, 2013 [facility] [address] [id number] [address] [place] [address], [place] [address] 14 Mar, 2013 [facility] [address] [id number] [address] [place] [id number] Mar, [facility] [address] [id number] [address] [place] [address], [place] [address] Mar, [facility] [address] [id number] [address] [place] [id number] Feb, [facility] [address] [id number] [address] [place] [id number] Feb, [facility] [address] [id number] [address] [place] [id number] Feb, [facility] [address] [id number] [address] [place] [address], [place] [address] Jan, [facility] [address] [id number] [address] [place] [id number] Jan, [facility] [address] [id number] [address] [place] [id number] Jan, [facility] [address] [id number] [address] [place] [id number] Jan, [facility] [address] [id number] [address] [place] [address], [place] [address] Jan, [facility] [address] [id number] [address] [place] [address], [place] [address] Jan, [facility] [address] [id number] [address] [place] [address], [place] [address] Dec, [facility] [address] [id number] [address] [place] [address], [place] [address] Dec, [facility] [address] [id number] [address] [place] [address], [place] [address] Dec, [facility] [address] [id number] [address] [place] [address], [place] [address] Dec, [facility] [address] [id number] [address] [place] [address], [place] [address] Dec, [facility] [address] [id number] [address] [place] [address], [place] [address] Dec, [facility] [address] [id number] [address] [place] [address], [place] [address] Nov, [facility] [address] [id number] [address] [place] [address], [place] [address] Nov, [facility] [address] [id number] [address] [place] [address], [place] [address] Nov, [facility] [address] [id number] [address] [place] [address], [place] [address] Nov, [facility] [address] [id number] [address] [place] [address], [place] [address] Nov, [facility] [address] [id number] [address] [place] [address], [place] [address] Nov, [facility] [address] [id number] [address] [place] [address], [place] [address] October, [facility] [address] [id number] [address] [place] [address], [place] [address] October, [facility] [address] [id number] [address] [place] [address], [place] [address] October, [facility] [address] [id number] [address] [place] [address], [place] [address] October, [facility] [address] [id number] [address] [place] [address], [place] [address] October, [facility] [address] [id number] [address] [place] [address], [place] [address] 30 Sep, [address] [facility] [address] [id number] [address] [place] [address], [place] [address] Sep, [facility] [address] [id number] [address] [place] [address], [place] [address] Sep, [facility] [address] [id number] [address] [place] [address], [place] [address] Sep, [facility] [address] [id number] [address] [place] [address], [place] [address] Sep, [facility] [address] [id number] [address] [place] [address], [place] [address] Aug, [facility] [address] [id number] [address] [place] [address], [place] [address] Aug, [facility] [address] [id number] [address] [place] [address], [place] [address] 04 Aug, [address] [facility] [address] [id number] [address] [place] [address], [place] [address] Jul[facility] [facility] [address] [id number] [address] [place] [address], [place] [address] Jul, [facility] [address] [id number] [address] [place] [address], [place] [address] Jul, [facility] [address] [id number] [address] [place] [address], [place] [address] 08 Jul, 2012 [facility] [address] [id number] [address] [place] [address], [place] [address] Jul, [facility] [address] [id number] [address] [place] [address], [place] [address] Jul, [facility] [address] [id number] [address] [place] [address], [place] [address] Jun, [facility] [address] [id number] [address] [place] [address], [place] [address] Apr, [facility] [address] [id number] [address] [place] [address], [place] [address] Apr, [facility] [address] [id number] [address] [place] [address], [place] [address] Apr, [facility] [address] [id number] [address] [place] [address], [place] [address] Apr, [facility] [address] [id number] [address] [place] [address], [place] [address] Mar, [facility] [address] [id number] [address] [place] [address], [place] [address] Mar, [facility] [address] [id number] [address] [place] [address], [place] [address] Mar, [facility] [address] [id number] [address] [place] [address], [place] [address] Mar, [facility] [address] [id number] [address] [place] [id number] Mar, [facility] [address] [id number] [address] [place] [address], [place] [address] Feb, [facility] [address] [id number] [address] [place] [address], [place] [address] Jan, [facility] [address] [id number] [address] [place] [address], [place] [address] Jan, [facility] [address] [id number] [address] [place] [id number] Jan, [facility] [address] [id number] [address] [place] [id number] Dec, [facility] [address] [id number] [address] [place] [id number] Nov, [facility] [address] [id number] [address] [place] [id number] Nov, [facility] [address] [id number] [address] [place] [id number] Nov, [facility] [address] [id number] [address] [place] [id number] Nov, [facility] [address] [id number] [address] [place] [address] Nov, [facility] [address] [id number] [address] [place] [id number] October, [facility] [address] [id number] [address] [place] [phone] October, [facility] [address] [id number] [address] [place] [id number] October, [facility] [address] [id number] [address] [place] [phone] October, [facility] [address] [id number] [address] [place] [phone] October, IMMUNIZATIONS No Known Immunizations SOCIAL HISTORY Never Assessed REASON FOR VISIT PLAN OF CARE VITAL SIGNS Height 66 in 2013-11-23 Weight 267.3 lbs 2013-11-23 Temperature 97.5 degrees Fahrenheit 2013-11-23 Heart Rate 74 bpm 2013-11-23 Respiratory Rate 18 2013-11-23 Blood pressure systolic 104 mmHg 2013-11-23 Blood pressure diastolic 60 mmHg 2013-11-23 MEDICATIONS Unknown Medications RESULTS No Results PROCEDURES Procedure Date Ordered Result Body Site URINE CULTURE/COLONY COUNT November 23, 2013 GLYCATED HEMOGLOBIN TEST November 23, 2013 BASIC METABOLIC PANEL November 23, 2013 URINALYSIS, AUTO, W/O SCOPE November 23, 2013 VENIPUNCT, ROUTINE* November 23, 2013 INSTRUCTIONS MEDICATIONS ADMINISTERED No Known Medications MEDICAL (GENERAL) HISTORY Type Description Date Medical History hypertension Medical History acid reflux Medical History osteoporosis Medical History Arthritis Medical History fibromyalgia Surgical History cholecystectomy 1969' Surgical History gastric bypass Surgical History orthopedic surgery-left and right foot Surgical History arthroscopic knee surgery-left Surgical History Left knee meniscus repair 2009 Surgical History half of thyroid removed Jun 2016 Hospitalization History Hospitalization for surgery only
--- OUTSIDE RECORDS SUMMARY | 2020-01-25 07:41 | XMS REPORT ---
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 Name Role Phone STEPHAN CORDERO Unavailable PROBLEMS Type Condition ICD9-CM Code [id number] Code Onset Dates Condition S tatus SNOMED Code Problem Primary insomnia F51.01 Active 397 2004 Problem Hypercholesteremia E78.0 Active 1 1348781 Problem Corns L84 Active 304330517 Problem Arthritis M19.90 Active 2625034 Problem Hyperparathyroidism E21.3 Active 46951565 Problem 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 Active 80982546 Problem 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 Active 06416467 Problem BPV (benign positional vertigo), bilateral H81.13 Active 541545153 Problem Unspecified kidney failure N19 Act chip 02818510 Problem Myalgia M79.1 Active 35909557 Problem 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 Active 012376217 Problem Mood disorder F39 Active 829706 05 Problem Chronic kidney disease, stage 4 (severe) N18.4 Active 930940576 Problem Primary osteoarthritis of left knee M17.12 Active [id number] Problem Irritable bowel syndrome with both constipation and diarrh ea K58.2 Active 27764328 Problem Body mass index (BMI) of 40.0-44.9 in adult Z68.41 Active 997036507 ALLERGIES No Information ENCOUNTERS Encounter Location Date Diagnosis [facility] [address] [id number] [place] [address] Jun, Knee pain, left M25.562 [facility] [address] [id number] [place] [address] May, Arthritis M19.90 [facility] [address] [id number] [place] [address] Apr, Well woman exam without gynecological ex am Z00.00 and Screening for breast cancer Z12.39 [facility] [address] [address] Mar, Arthritis M19.90 [facility] [address] [address] Mar, Arthritis M19.90 [facility] [address] [address] Mar, [facility] [address] [address] Mar, Arthritis M19.90 and Encounter for immun ization Z23 [place] [address] [address] Feb, Arthritis M19.90 [place] [address] [address] Feb, [place] [address] [address] Feb, Other specified disorders of bone densit y and structure, unspecified site M85.80 [place] [address] [address] Jan, Arthritis M19.90 [facility] [address] [address] Dec, Arthritis M19.90 [facility] [address] [address] Nov, Inflammatory spondylopathy of sacral reg ion M46.98 [facility] [address] [address] Nov, [facility] [address] [address] Nov, Labyrinthitis of left ear H83.02 [facility] [address] [address] Nov, Arthritis M19.90 [facility] [address] [address] 15 Sep, 2018 Arthritis M19.90 [place] [address] [address] 08 Sep, 2018 Renal insufficiency N28.9 and Unspecifie d kidney failure N19 [place] [address] [address] 08 Sep, 2018 Renal insufficiency N28.9 and Unspecifie d kidney failure N19 [place] [address] [address] Sep, Arthritis M19.90 [place] [address] [address] Aug, Exercise counseling Z71.82 [place] [address] [address] Aug, [place] [address] [address] Jul, Labyrinthitis of left ear H83.02 [place] [address] [address] Jul, Labyrinthitis of left ear H83.02 [place] [address] [address] 19 Jul, 2018 Exercise counseling Z71.82 [place] [address] [address] 18 Jul, 2018 [place] [address] [address] 14 Jul, 2018 Arthritis M19.90 [place] [address] [address] 13 Jul, 2018 Encounter for Medicare annual wellness e xam Z00.00 ; Chronic kidney disease, stage 4 (severe) N18.4 ; Body mass index (BMI) of 40.0-44.9 in adult Z68.41 ; Hyperparathyroidism E21.3 and BMI 40.0-44.9, adult Z68.41 [place] [address] [address] 13 Jul, 2018 Encounter for Medicare annual wellness e xam Z00.00 ; Chronic kidney disease, stage 4 (severe) N18.4 ; Hyperparathyroidism E21.3 ; Body mass index (BMI) of 40.0-44.9 in adult Z68.41 and Encounter for immunization Z23 [address] [address] 11 Jul, 2018 Tail bone pain M53.3 [place] [address] [address] 29 Jun, 2018 Exercise counseling Z71.[address] [address] Jun, Labyrinthitis of left ear H83.[address] [address] Jun, Tail bone pain M53.3 ; Irritable bowel s yndrome with both constipation and diarrhea K58.2 and Dysfunction of left eustachian tube H69.82 [place] [address] [address] Jun, Exercise counseling Z71.82 [place] [address] [address] Jun, Arthritis M19.[address] [address] Jun, Irritable bowel syndrome with both const ipation and diarrhea K58.2 ; Tail bone pain M53.3 and Dysfunction of left eustachian tube H69.82 [place] [address] [address] Jun, Exercise counseling Z71.82 [place] [address] [address] Jun, Exercise counseling Z71.82 [place] [address] [address] Jun, Labyrinthitis of left ear H83.02 [facility] [address] [address] May, Exercise counseling Z71.82 [facility] [address] [address] May, Arthritis M19.90 [facility] [address] [address] May, Exercise counseling Z71.82 [facility] [address] [address] May, Exercise counseling Z71.82 [facility] [address] [address] May, Labyrinthitis of left ear H83.02 [facility] [address] [address] May, Exercise counseling Z71.82 [facility] [address] [address] Apr, Arthritis M19.90 [facility] [address] [address] Apr, Exercise counseling Z71.82 [facility] [address] [address] Apr, Exercise counseling Z71.82 [facility] [address] [address] Apr, Primary osteoarthritis of left knee M17. 12 [facility] [address] [address] 08 Apr, 2018 Labyrinthitis of left ear H83.02 [facility] [address] [address] Mar, Arthritis M19.90 [facility] [address] [address] Mar, [facility] [address] [address] Mar, Chronic kidney disease, stage 4 (severe) N18.4 [facility] [address] [address] Mar, Chronic kidney disease, stage 4 (severe) N18.4 [facility] [address] [address] Mar, Labyrinthitis of left ear H83.02 [facility] [address] [address] Mar, Chronic kidney disease, stage 4 (severe) N18.4 ; Knee pain, left anterior M25.562 ; 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 and Encounter for immunization Z23 [place] [address] [address] Mar, Arthritis M19.90 [place] [address] [address] Feb, Labyrinthitis of left ear H83.02 [place] [address] [address] Feb, Arthritis M19.90 [place] [address] [address] Jan, Labyrinthitis of left ear H83.02 [place] [address] [address] Jan, Arthritis M19.90 [facility] [address] [address] Dec, Labyrinthitis of left ear H83.02 [place] [address] [address] Nov, Arthritis M19.90 [facility] [address] [address] Nov, Labyrinthitis of left ear H83.02 [place] [address] [address] Nov, BMI 40.0-44.9, adult Z68.41 ; Chronic ki dney disease, stage 4 (severe) N18.4 and Acute right-sided thoracic back pain M54.6 [place] [address] [address] October, Labyrinthitis of left ear H83.02 and Art hritis M19.90 [place] [address] [address] Sep, BPV (benign positional vertigo), bilater al H81.13 ; Dysfunction of left eustachian tube H69.82 and BMI 40.0-44.9, adult Z68.41 [place] [address] [address] Sep, Labyrinthitis of left ear H83.02 and Art hritis M19.90 [place] [address] [address] Sep, [place] [address] [address] Sep, [place] [address] [address] Sep, Chronic kidney disease, stage 4 (severe) N18.4 [place] [address] [address] Sep, Chronic kidney disease, stage 4 (severe) N18.4 [place] [address] [address] Aug, Labyrinthitis of left ear H83.02 and Art hritis M19.90 [place] [address] [address] Aug, [place] [address] [address] Jul, [place] [address] [address] Jul, Arthritis M19.90 and Labyrinthitis of le ft ear H83.02 [place] [address] [address] 08 Jul, 2017 [place] [address] [address] Jun, [place] [address] [address] Jun, Arthritis M19.90 and Labyrinthitis of le ft ear H83.02 [place] [address] [address] Jun, Pre-op evaluation Z01.818 ; BMI 40.0-44. 9, adult Z68.41 and Encounter for immunization Z23 [place] [address] [address] May, Arthritis M19.90 and Labyrinthitis of le ft ear H83.02 [place] [address] [address] Apr, Labyrinthitis of left ear H83.02 [place] [address] [address] Apr, Arthritis M19.90 and Labyrinthitis of le ft ear H83.02 [place] [address] [address] Mar, Arthritis M19.90 and Labyrinthitis of le ft ear H83.02 [place] [address] [address] 05 Mar, 2017 Chronic kidney disease, stage 4 (severe) N18.4 [place] [address] [address] 06 Feb, 2017 Arthritis M19.90 and Labyrinthitis of le ft ear H83.02 [place] [address] [address] Jan, Labyrinthitis of left ear H83.02 and Def iciency 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 [facility] [address] [address] Dec, Arthritis M19.90 [facility] [address] [address] Dec, BPV (benign positional vertigo), bilater al H81.13 [facility] [address] [address] Dec, [place] [address] [address] Dec, [place] [address] [address] Dec, [place] [address] [address] Nov, Arthritis M19.90 and 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 [place] [address] [address] Nov, Arthritis M19.90 [place] [address] [address] Nov, Hyperparathyroidism E21.3 [place] [address] [address] October, [place] [address] [address] October, Hyperparathyroidism E21.3 [facility] [address] [address] October, [address] [address] October, Renal insufficiency N28.9 and Hyperparat hyroidism E21.3 [facility] [address] [address] October, [facility] [address] [address] October, Renal insufficiency N28.9 and Hyperparat hyroidism E21.3 [facility] [address] [address] October, Arthritis M19.90 [facility] [address] [address] Sep, [facility] [address] [address] Sep, Lumbar neuritis M54.16 ; Thoracic absces s J86.9 and 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 [place] [address] [address] Sep, [place] [address] [address] Aug, Arthritis M19.90 [place] [address] [address] Aug, Hyperparathyroidism E21.3 [place] [address] [address] Aug, Hyperparathyroidism E21.3 [facility] [address] [address] Aug, Arthritis M19.90 [place] [address] [address] Jul, Mass of throat R22.1 [facility] [address] [address] Jul, [facility] [address] [address] Jul, Arthritis M19.90 [facility] [address] [address] Jun, Arthritis M19.90 [facility] [address] [address] Jun, [facility] [address] [address] Jun, Renal insufficiency N28.9 and Parathyroi d 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 [facility] [address] [address] Jun, Medicare welcome exam Z00.00 ; Encounter for immunization Z23 ; Arthritis M19.90 ; Medicare annual wellness visit, initial Z00.00 ; Medicare annual wellness visit, subsequent Z00.00 and 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 [place] [address] [address] May, Renal insufficiency N28.9 and Parathyroi d 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 [place] [address] [address] May, Renal insufficiency N28.9 [place] [address] [address] May, Renal insufficiency N28.9 [place] [address] [address] May, [place] [address] [address] Apr, [place] [address] [address] Apr, [place] [address] [address] 14 Apr, 2016 Mass of throat R22.1 [facility] [address] [address] 10 Apr, 2016 [facility] [address] [address] 10 Apr, 2016 Mass of throat R22.1 [place] [address] [address] 04 Apr, 2016 Mass of throat R22.1 [place] [address] [address] Mar, [facility] [address] [address] Mar, [facility] [address] [address] Mar, [facility] [address] [address] Mar, 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 for immunization Z23 [place] [address] [address] Mar, [place] [address] [address] Mar, [place] [address] [address] Feb, Renal insufficiency N28.9 and Hyperparat hyroidism E21.3 [place] [address] [address] 19 Feb, 2016 [place] [address] [address] 15 Feb, 2016 Renal insufficiency N28.9 and Hyperparat hyroidism E21.3 [place] [address] [address] 14 Feb, 2016 [place] [address] [address] 12 Feb, 2016 [place] [address] [address] 09 Feb, 2016 [place] [address] [address] Jan, [place] [address] [address] Jan, Arthritis M19.90 ; Lumbago with sciatica , right side M54.41 and Other chronic pain G89.29 [place] [address] [address] Jan, [place] [address] [address] Dec, Arthritis M19.90 ; Lumbago with sciatica , right side M54.41 and Other chronic pain G89.29 [place] [address] [address] Nov, Deficiency of other specified B group vi tamins E53.8 ; Primary insomnia F51.01 ; Mood disorder F39 and Lumbago with sciatica, right side M54.41 [place] [address] [address] Nov, Hyperparathyroidism E21.3 [place] [address] [address] Nov, Unspecified kidney failure N19 and Hyper parathyroidism E21.3 [place] [address] [address] October, Hyperparathyroidism E21.3 [place] [address] [address] October, [place] [address] [address] October, Hyperparathyroidism E21.3 [place] [address] [address] October, Hyperparathyroidism E21.3 [place] [address] [address] Sep, Hyperparathyroidism E21.3 ; Hypercholest erolemia E78.0 and Arthritis M19.90 [place] [address] [address] Aug, [place] [address] [address] Aug, Deficiency of other specified B group vi tamins E53.8 [place] [address] [address] Aug, [facility] [address] [place] [id number] [place] [address] Jul, Urinary frequency R35.0 [facility] [address] [place] [id number] [place] [address] Jul, Urinary frequency R35.0 [facility] [address] [place] [id number] [place] [address] Jul, [facility] [address] [address] Jul, [facility] [address] [address] Jun, Pain in left knee M25.562 [facility] [address] [address] Jun, [facility] [address] [address] May, Swelling of left knee joint M25.462 [facility] [address] [address] May, [facility] [address] [address] May, [facility] [address] [address] May, [facility] [address] [address] Apr, Renal insufficiency N28.9 and Chronic ki dney disease, stage 4 (severe) N18.4 [facility] [address] [address] Apr, Unspecified kidney failure N19 [facility] [address] [address] Apr, Unspecified kidney failure N19 [facility] [address] [address] Apr, [facility] [address] [address] Apr, Hyperparathyroidism, unspecified 252.00 [facility] [address] [address] Apr, [facility] [address] [address] Mar, [facility] [address] [address] Mar, [facility] [address] [address] Mar, Hyperparathyroidism, unspecified 252.00 [facility] [address] [address] Feb, [facility] [address] [address] Feb, Otalgia 388.70 [facility] [address] [address] Feb, [facility] [address] [address] Feb, [facility] [address] [address] Jan, [facility] [address] [address] Jan, Hyperparathyroidism, unspecified 252.00 [facility] [address] [address] Jan, [facility] [address] [address] Jan, Other B-complex deficiencies 266.2 and H yperparathyroidism, unspecified 252.00 [facility] [address] [address] Jan, [facility] [address] [address] Jan, [facility] [address] [place] [address] [place] [address] Jan, [facility] [address] [id number] [place] [address] Dec, [facility] [address] [id number] [place] [address] Dec, [facility] [address] [id number] [place] [address] Dec, [facility] [address] [id number] [place] [address] Nov, Routine check-up V70.0 and Pre-op exam V 72.84 [facility] [address] [id number] [place] [address] Nov, [facility] [address] [id number] [place] [address] Nov, [facility] [id number] [place] [address] October, [facility] [id number] [place] [address] October, Other B-complex deficiencies 266.2 [facility] [address] [id number] [place] [address] October, [facility] [id number] [place] [address] Sep, [facility] [address] [id number] [place] [address] Sep, [facility] [address] [id number] [place] [address] Aug, [facility] [id number] [place] [address] Aug, [facility] [id number] [place] [address] Aug, [facility] [id number] [place] [address] Aug, [facility] [address] [id number] [place] [address] Aug, 2014 [facility] [address] [id number] [place] [address] Aug, 2014 [facility] [address] [id number] [place] [address] Jul, 2014 [facility] [address] [id number] [place] [address] Jul, 2014 [facility] [address] [id number] [place] [address] Jul, 2014 [facility] [address] [id number] [place] [address] Jul, 2014 [facility] [address] [id number] [place] [address] Jul, 2014 [facility] [address] [id number] [place] [address] Jul, 2014 [facility] [address] [id number] [place] [address] Jul, 2014 [facility] [address] [id number] [place] [address] Jul, 2014 [facility] [address] [id number] [place] [address] Jul, 2014 [facility] [address] [id number] [place] [address] Jul, 2014 [facility] [address] [id number] [place] [address] Jul, 2014 [facility] [address] [id number] [place] [address] Jul, 2014 [facility] [address] [id number] [place] [address] Jul, 2014 [facility] [address] [id number] [place] [address] Jul, 2014 [facility] [address] [id number] [place] [address] Jun, [facility] [address] [id number] [place] [address] Jun, [facility] [address] [id number] [place] [address] Jun, [facility] [address] [id number] [place] [address] Jun, [facility] [address] [id number] [place] [address] Jun, [facility] [address] [id number] [place] [address] Jun, [facility] [address] [id number] [place] [address] Jun, [facility] [address] [id number] [place] [address] Jun, [facility] [address] [id number] [place] [address] Jun, [facility] [address] [id number] [place] [address] Jun, [facility] [address] [id number] [place] [address] Jun, [facility] [address] [id number] [place] [address] Jun, [facility] [address] [id number] [place] [address] Jun, [facility] [address] [id number] [place] [address] Jun, [facility] [address] [id number] [place] [address] May, [facility] [address] [id number] [place] [address] May, [facility] [address] [id number] [place] [address] May, [facility] [address] [id number] [place] [address] May, [facility] [address] [id number] [place] [address] Apr, [facility] [facility] [address] [id number] [place] [address] Apr, [facility] [address] [id number] [place] [address] Apr, [facility] [address] [id number] [place] [address] Apr, [facility] [address] [id number] [place] [address] Apr, [facility] [address] [id number] [place] [address] Apr, [facility] [address] [id number] [place] [address] Mar, [facility] [address] [id number] [place] [address] 24 Mar, 2014 [facility] [address] [id number] [place] [address] Mar, [facility] [address] [id number] [place] [address] Mar, [facility] [address] [id number] [place] [address] 15 Mar, 2014 [facility] [address] [id number] [place] [address] 15 Mar, 2014 [facility] [address] [id number] [place] [address] 13 Mar, 2014 [facility] [address] [id number] [place] [address] 13 Mar, 2014 [facility] [address] [id number] [place] [address] 07 Mar, 2014 [facility] [address] [id number] [place] [address] Mar, 2013 [facility] [address] [facility] [id number] [place] [address] Mar, 2013 [facility] [address] [facility] [id number] [place] [address] Mar, 2013 [facility] [address] [facility] [id number] [place] [address] Mar, [facility] [address] [facility] [id number] [place] [address] Feb, 2013 [facility] [address] [facility] [id number] [place] [address] Feb, 2013 [facility] [address] [id number] [place] [address] Feb, [facility] [address] [id number] [place] [address] Feb, 2013 [facility] [address] [id number] [place] [address] Feb, 2013 [facility] [address] [facility] [id number] [place] [address] Feb, 2013 [facility] [address] [id number] [place] [address] Feb, [facility] [address] [id number] [place] [address] Feb, 2013 [facility] [address] [id number] [place] [address] Feb, [facility] [address] [facility] [id number] [place] [address] Feb, [facility] [address] [facility] [id number] [place] [address] Jan, [facility] [address] [facility] [id number] [place] [address] Jan, [facility] [address] [id number] [place] [address] Dec, [facility] [address] [id number] [place] [address] Dec, [facility] [address] [id number] [place] [address] Dec, [facility] [address] [facility] [id number] [place] [address] Dec, [facility] [address] [id number] [place] [address] Dec, [facility] [address] [facility] [id number] [place] [address] Dec, [facility] [address] [facility] [id number] [place] [address] Nov, [facility] [address] [id number] [place] [address] Nov, [facility] [address] [id number] [place] [address] Nov, [facility] [address] [id number] [place] [address] Nov, [facility] [address] [facility] [id number] [place] [address] October, [facility] [address] [id number] [place] [address] October, [facility] [address] [id number] [place] [address] October, [facility] [address] [id number] [place] [address] October, [facility] [address] [facility] [id number] [place] [address] October, [facility] [address] [id number] [place] [address] October, [facility] [address] [id number] [place] [address] October, [facility] [address] [id number] [place] [address] October, [facility] [address] [id number] [place] [address] October, [facility] [address] [id number] [place] [address] October, [facility] [address] [id number] [place] [address] October, [facility] [address] [id number] [place] [address] October, [facility] [address] [id number] [place] [address] October, [facility] [address] [id number] [place] [address] October, [facility] [address] [id number] [place] [address] October, [facility] [address] [id number] [place] [address] October, [facility] [address] [id number] [place] [address] Sep, [facility] [address] [id number] [place] [address] Sep, [facility] [address] [id number] [place] [address] Sep, [facility] [address] [id number] [place] [address] Sep, [facility] [address] [id number] [place] [address] Sep, [facility] [address] [id number] [place] [address] Sep, [facility] [address] [id number] [place] [address] Aug, [facility] [address] [id number] [place] [address] Aug, [facility] [address] [id number] [place] [address] Aug, [facility] [address] [id number] [place] [address] Aug, [facility] [address] [id number] [place] [address] Aug, [facility] [address] [id number] [place] [address] Aug, [facility] [address] [id number] [place] [address] Jul, [facility] [address] [facility] [id number] [place] [address] Jul, [facility] [address] [id number] [place] [address] Jul, [facility] [address] [id number] [place] [address] Jul, [facility] [address] [id number] [place] [address] Jun, [facility] [address] [id number] [place] [address] Jun, [facility] [address] [id number] [place] [address] May, [facility] [address] [id number] [place] [address] May, [facility] [address] [id number] [place] [address] May, [facility] [address] [id number] [place] [address] May, [facility] [address] [id number] [place] [address] May, [facility] [address] [id number] [place] [address] Apr, [facility] [address] [id number] [place] [address] Apr, [facility] [address] [id number] [place] [address] Apr, [facility] [address] [facility] [id number] [place] [address] Apr, [facility] [address] [id number] [place] [address] Apr, [facility] [address] [id number] [place] [address] 04 Apr, 2013 [facility] [address] [id number] [place] [address] 15 Mar, 2013 [facility] [address] [id number] [place] [address] 15 Mar, 2013 [facility] [address] [id number] [place] [address] 14 Mar, 2013 [facility] [address] [id number] [place] [address] 14 Mar, 2013 [facility] [address] [id number] [place] [address] Mar, [facility] [address] [id number] [place] [address] Mar, [facility] [address] [id number] [place] [address] 23 Feb, 2013 [facility] [address] [id number] [place] [address] Feb, [facility] [address] [id number] [place] [address] 04 Feb, 2013 [facility] [address] [facility] [id number] [place] [address] 30 Jan, 2013 [facility] [address] [id number] [place] [address] Jan, [facility] [address] [id number] [place] [address] Jan, [facility] [address] [id number] [place] [address] Jan, [facility] [address] [facility] [id number] [place] [address] Jan, [facility] [address] [id number] [place] [address] Jan, [facility] [address] [facility] [id number] [place] [address] Dec, [facility] [address] [id number] [place] [address] Dec, [facility] [address] [facility] [id number] [place] [address] Dec, [facility] [address] [id number] [place] [address] Dec, [facility] [address] [id number] [place] [address] Dec, [facility] [address] [id number] [place] [address] Dec, [facility] [address] [id number] [place] [address] Nov, [facility] [address] [id number] [place] [address] Nov, [facility] [address] [id number] [place] [address] Nov, [facility] [address] [id number] [place] [address] Nov, [facility] [address] [id number] [place] [address] Nov, [facility] [address] [id number] [place] [address] Nov, [facility] [address] [id number] [place] [address] October, [facility] [address] [id number] [place] [address] October, [facility] [address] [id number] [place] [address] October[facility] [address] [id number] [place] [address] October, [facility] [address] [id number] [place] [address] October, [facility] [address] [id number] [place] [address] Sep, [facility] [address] [id number] [place] [address] Sep, [facility] [address] [id number] [place] [address] Sep, [facility] [address] [id number] [place] [address] Sep, [facility] [address] [id number] [place] [address] Sep, [facility] [address] [id number] [place] [address] Aug, [facility] [address] [id number] [place] [address] Aug, [facility] [address] [id number] [place] [address] Aug, [facility] [address] [id number] [place] [address] Jul, [facility] [address] [id number] [place] [address] Jul, [facility] [address] [id number] [place] [address] Jul, [facility] [address] [id number] [place] [address] 08 Jul, 2012 [facility] [address] [id number] [place] [address] 06 Jul, 2012 [facility] [address] [id number] [place] [address] 05 Jul, 2012 [facility] [address] [id number] [place] [address] Jun, [facility] [address] [id number] [place] [address] Apr, [facility] [address] [id number] [place] [address] Apr, [facility] [id number] [place] [address] Apr, [facility] [address] [id number] [place] [address] Apr, [facility] [address] [id number] [place] [address] Mar, [facility] [address] [id number] [place] [address] Mar, [facility] [id number] [place] [address] Mar, [facility] [id number] [place] [address] Mar, [facility] [id number] [place] [address] Mar, [facility] [address] [id number] [place] [address] Feb, [facility] [address] [id number] [place] [address] Jan, [facility] [address] [id number] [place] [address] Jan, [facility] [address] [id number] [place] [address] Jan, [facility] [id number] [place] [address] Dec, [facility] [address] [id number] [place] [address] Nov, [facility] [id number] [place] [address] Nov, [facility] [address] [id number] [place] [address] Nov, [facility] [address] [id number] [place] [address] Nov, [facility] [address] [id number] [place] [address] Nov, [facility] [id number] [place] [address] October, [facility] [id number] [place] [address] October, [facility] [id number] [place] [address] October, [facility] [address] [id number] [place] [address] October, [facility] [address] [id number] [place] [address] October, IMMUNIZATIONS No Known Immunizations SOCIAL HISTORY [...]
--- OUTSIDE RECORDS SUMMARY | 2020-01-25 07:42 | XMS REPORT ---
Author Author Velma CORDERO Organization [facility] Address [address] [place] [address] Care Team Providers Care Family Health Nurse Practitioner Name Role Phone STEPHAN CORDERO Unavailable PROBLEMS Type Condition ICD9-CM Code OPP21-CD Code Onset Dates Condition S tatus SNOMED Code Problem Primary insomnia F51.01 Active 397 2004 Problem Hypercholesteremia E78.0 Active 1 4874258 Problem Corns L84 Active 690049061 Problem Arthritis M19.90 Active 4794803 Problem Hyperparathyroidism E21.3 Active 72336504 Problem 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 Active 14597734 Problem 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 Active 47017642 Problem BPV (benign positional vertigo), bilateral H81.13 Active 928090813 Problem Unspecified kidney failure N19 Act chip 89364227 Problem Myalgia M79.1 Active 65753920 Problem 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 Active 229852032 Problem Mood disorder F39 Active 662597 05 Problem Chronic kidney disease, stage 4 (severe) N18.4 Active 392807689 Problem Primary osteoarthritis of left knee M17.12 Active [id number] Problem Irritable bowel syndrome with both constipation and diarrh ea K58.2 Active 46988629 Problem Body mass index (BMI) of 40.0-44.9 in adult Z68.41 Active 952180892 ALLERGIES No Information ENCOUNTERS Encounter Location Date Diagnosis [facility] [address] [id number] [address] [place] [phone] Mar, [facility] [address] [id number] [address] [place] [phone] Mar, [facility] [address] [id number] [address] [place] [phone] Feb, [facility] [address] [id number] [address] [place] [phone] Feb, Other specified disorders of bone density and structure, unspecified site M85.80 [facility] [address] [id number] [address] [place] [phone] Jan, Arthritis M19.90 [facility] [address] [id number] [address] [place] [id number] Dec, Arthritis M19.90 [facility] [address] [id number] [address] [place] [phone] Nov, Inflammatory spondylopathy o f sacral region M46.98 [facility] [address] [id number] [address] [place] [address] Nov, [facility] [address] [id number] [address] [place] [phone] Nov, Labyrinthitis of left ear H8 3.02 [facility] [address] [id number] [address] [place] [id number] Nov, Arthritis M19.90 [facility] [address] [id number] [address] [place] [phone] Sep, Arthritis M19.90 [facility] [address] [id number] [address] [place] [id number] Sep, Renal insufficiency N28.9 an d Unspecified kidney failure N19 [facility] [address] [id number] [address] [place] [id number] Sep, Renal insufficiency N28.9 an d Unspecified kidney failure N19 [facility] [address] [id number] [address] [place] [address] Sep, Arthritis M19.90 [facility] [address] [id number] [address] [place] [id number] Aug, Exercise counseling Z71.82 [facility] [address] [id number] [address] [place] [phone] Aug, [facility] [address] [id number] [address] [place] [id number] 27 Jul, 2018 Labyrinthitis of left ear H8 3.02 [facility] [address] [id number] [address] [place] [id number] 22 Jul, 2018 Labyrinthitis of left ear H8 3.02 [place] [facility] [address] [id number] [address] [place] [id number] 19 Jul, 2018 Exercise counseling Z71.82 [place] [address] [id number] [address] [place] [phone] 18 Jul, 2018 [place] [address] [place] [id number] [place] [phone] 14 Jul, 2018 Arthritis M19.90 [place] [address] [place] [id number] [place] [phone] 13 Jul, 2018 Encounter for Medicare annua l wellness exam Z00.00 ; Chronic kidney disease, stage 4 (severe) N18.4 ; Body mass index (BMI) of 40.0-44.9 in adult Z68.41 ; Hyperparathyroidism E21.3 and BMI 40.0-44.9, adult Z68.41 [place] [address] [place] [id number] [address] [place] [id number] 13 Jul, 2018 Encounter for Medicare annua l wellness exam Z00.00 ; Chronic kidney disease, stage 4 (severe) N18.4 ; Hyperparathyroidism E21.3 ; Body mass index (BMI) of 40.0-44.9 in adult Z68.41 and Encounter for immunization Z23 [place] [address] [id number] [address] [place] [id number] 11 Jul, 2018 Tail bone pain M53.3 [place] [address] [id number] [address] [place] [id number] Jun, Exercise counseling Z71.82 [place] [address] [place] [id number] [address] [place] [id number] Jun, Labyrinthitis of left ear H8 3.02 [facility] [address] [id number] [address] [place] [phone] Jun, Tail bone pain M53.3 ; Irrit able bowel syndrome with both constipation and diarrhea K58.2 and Dysfunction of left eustachian tube H69.82 [facility] [address] [id number] [address] [place] [address] Jun, Exercise counseling Z71.82 [facility] [address] [id number] [address] [place] [address] Jun, Arthritis M19.90 [facility] [address] [id number] [address] [place] [id number] Jun, Irritable bowel syndrome wit h both constipation and diarrhea K58.2 ; Tail bone pain M53.3 and Dysfunction of left eustachian tube H69.82 [facility] [address] [id number] [address] [place] [phone] Jun, Exercise counseling Z71.82 [facility] [address] [id number] [address] [place] [phone] Jun, Exercise counseling Z71.82 [facility] [address] [id number] [address] [place] [phone] Jun, Labyrinthitis of left ear H8 3.02 [facility] [address] [id number] [address] [place] [address] May, Exercise counseling Z71.82 [facility] [address] [id number] [address] [place] [phone] May, Arthritis M19.90 [facility] [address] [id number] [address] [place] [id number] May, Exercise counseling Z71.82 [facility] [address] [id number] [address] [place] [phone] May, Exercise counseling Z71.82 [facility] [address] [id number] [address] [place] [id number] 06 May, 2018 Labyrinthitis of left ear H8 3.02 [facility] [address] [id number] [address] [place] [id number] 03 May, 2018 Exercise counseling Z71.82 [facility] [address] [id number] [address] [place] [id number] Apr, Arthritis M19.90 [facility] [address] [id number] [address] [place] [phone] Apr, Exercise counseling Z71.82 [facility] [address] [id number] [address] [place] [phone] Apr, Exercise counseling Z71.82 [facility] [address] [id number] [address] [place] [address] Apr, Primary osteoarthritis of le ft knee M17.12 [facility] [address] [id number] [address] [place] [id number] 08 Apr, 2018 Labyrinthitis of left ear H8 3.02 [facility] [address] [id number] [address] [place] [id number] 30 Mar, 2018 Arthritis M19.90 [facility] [address] [id number] [address] [place] [phone] 16 Mar, 2018 [facility] [address] [id number] [address] [place] [phone] Mar, Chronic kidney disease, stag e 4 (severe) N18.4 [facility] [address] [id number] [address] [place] [phone] Mar, Chronic kidney disease, stag e 4 (severe) N18.4 [facility] [address] [id number] [address] [place] [id number] 09 Mar, 2018 Labyrinthitis of left ear H8 3.02 [facility] [address] [id number] [address] [place] [id number] Mar, Chronic kidney disease, stag e 4 (severe) N18.4 ; Knee pain, left anterior M25.562 ; 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 and Encounter for immunization Z23 [facility] [address] [id number] [address] [place] [id number] Mar, Arthritis M19.90 [facility] [address] [place] [id number] [address] [place] [phone] Feb, Labyrinthitis of left ear H8 3.02 [facility] [address] [place] [id number] [address] [place] [id number] Feb, Arthritis M19.90 [facility] [address] [place] [id number] [address] [place] [id number] Jan, Labyrinthitis of left ear H8 3.02 [facility] [address] [place] [id number] [address] [place] [id number] Jan, Arthritis M19.90 [facility] [address] [place] [id number] [address] [place] [phone] Dec, Labyrinthitis of left ear H8 3.02 [facility] [address] [place] [id number] [address] [place] [id number] Nov, Arthritis M19.90 [facility] [address] [place] [id number] [address] [place] [address] Nov, Labyrinthitis of left ear H8 3.02 [facility] [address] [id number] [address] [place] [address] Nov, BMI 40.0-44.9, adult Z68.41 ; Chronic kidney disease, stage 4 (severe) N18.4 and Acute right-sided thoracic back pain M54.6 [facility] [address] [place] [id number] [address] [place] [phone] October, Labyrinthitis of left ear H8 3.02 and Arthritis M19.90 [facility] [address] [id number] [address] [place] [id number] Sep, BPV (benign positional verti go), bilateral H81.13 ; Dysfunction of left eustachian tube H69.82 and BMI 40.0-44.9, adult Z68.41 [facility] [address] [id number] [address] [place] [address] Sep, Labyrinthitis of left ear H8 3.02 and Arthritis M19.90 [facility] [address] [id number] [address] [place] [phone] Sep, [facility] [address] [id number] [address] [place] [phone] Sep, [facility] [address] [id number] [address] [place] [phone] Sep, Chronic kidney disease, stag e 4 (severe) N18.4 [facility] [address] [id number] [address] [place] [id number] Sep, Chronic kidney disease, stag e 4 (severe) N18.4 [facility] [address] [id number] [address] [place] [phone] Aug, Labyrinthitis of left ear H8 3.02 and Arthritis M19.90 [facility] [address] [id number] [address] [place] [phone] Aug, [facility] [address] [id number] [address] [place] [id number] Jul, [facility] [address] [id number] [address] [place] [phone] Jul, Arthritis M19.90 and Labyrin thitis of left ear H83.02 [facility] [address] [id number] [address] [place] [id number] Jul, [facility] [address] [place] [id number] [address] [place] [id number] Jun, [place] [address] [id number] [address] [place] [id number] Jun, Arthritis M19.90 and Labyrin thitis of left ear H83.02 [place] [address] [place] [id number] [address] [place] [address] Jun, Pre-op evaluation Z01.818 ; BMI 40.0-44.9, adult Z68.41 and Encounter for immunization Z23 [place] [address] [place] [id number] [address] [place] [phone] May, Arthritis M19.90 and Labyrin thitis of left ear H83.02 [place] [address] [place] [id number] [place] [address] Apr, Labyrinthitis of left ear H8 3.02 [place] [address] [address] Apr, Arthritis M19.90 and Labyrin thitis of left ear H83.02 [place] [address] [place] [id number] [address] [place] [address] Mar, Arthritis M19.90 and Labyrin thitis of left ear H83.02 [place] [address] [place] [id number] [address] [place] [id number] Mar, Chronic kidney disease, stag e 4 (severe) N18.4 [place] [address] [place] [id number] [address] [place] [address] Feb, Arthritis M19.90 and Labyrin thitis of left ear H83.02 [place] [address] [place] [id number] [address] [place] [phone] Jan, Labyrinthitis of left ear H8 3.02 and 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 [place] [address] [place] [id number] [address] [place] [address] Dec, Arthritis M19.90 [facility] [address] [id number] [address] [place] [phone] Dec, BPV (benign positional verti go), bilateral H81.13 [facility] [address] [id number] [address] [place] [phone] Dec, [facility] [address] [id number] [address] [place] [phone] Dec, [facility] [address] [id number] [address] [place] [phone] Dec, [facility] [address] [id number] [address] [place] [phone] Nov, Arthritis M19.90 and Deficie ncy 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 [facility] [address] [id number] [address] [place] [id number] Nov, Arthritis M19.90 [facility] [address] [id number] [address] [place] [phone] Nov, Hyperparathyroidism E21.3 [facility] [address] [id number] [address] [place] [phone] October, [facility] [address] [id number] [address] [place] [phone] October, Hyperparathyroidism E21.3 [facility] [address] [id number] [address] [place] [id number] October, [facility] [address] [id number] [address] [place] [phone] October, Renal insufficiency N28.9 an d Hyperparathyroidism E21.3 [facility] [address] [id number] [address] [place] [phone] October, [facility] [address] [id number] [address] [place] [address] October, Renal insufficiency N28.9 an d Hyperparathyroidism E21.3 [facility] [address] [id number] [address] [place] [address] October, Arthritis M19.90 [facility] [address] [id number] [address] [place] [address] Sep, [facility] [address] [id number] [address] [place] [address] Sep, Lumbar neuritis M54.16 ; Tho racic abscess J86.9 and 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 [facility] [address] [id number] [address] [place] [address] Sep, [facility] [address] [id number] [address] [place] [address] Aug, Arthritis M19.90 [facility] [address] [id number] [address] [place] [address] Aug, Hyperparathyroidism E21.3 [facility] [address] [id number] [address] [place] [address] Aug, Hyperparathyroidism E21.3 [facility] [address] [id number] [address] [place] [address] Aug, Arthritis M19.90 [facility] [address] [id number] [address] [place] [id number] Jul, Mass of throat R22.1 [facility] [address] [id number] [address] [place] [id number] Jul, [facility] [address] [id number] [address] [place] [phone] Jul, Arthritis M19.90 [facility] [address] [id number] [address] [place] [id number] Jun, Arthritis M19.90 [facility] [address] [id number] [address] [place] [phone] Jun, [facility] [address] [id number] [address] [place] [phone] 09 Jun, 2016 Renal insufficiency N28.9 an d 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 [facility] [address] [id number] [address] [place] [id number] 05 Jun, 2016 Medicare welcome exam Z00.00 ; Encounter for immunization Z23 ; Arthritis M19.90 ; Medicare annual wellness visit, initial Z00.00 ; Medicare annual wellness visit, subsequent Z00.00 and 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 [facility] [address] [id number] [address] [place] [address] 29 May, 2016 Renal insufficiency N28.9 an d 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 [facility] [address] [id number] [address] [place] [phone] 19 May, 2016 Renal insufficiency N28.9 [facility] [address] [id number] [address] [place] [phone] May, Renal insufficiency N28.9 [facility] [address] [id number] [address] [place] [address] May, [facility] [address] [place] [id number] [address] [place] [id number] Apr, [facility] [address] [place] [id number] [address] [place] [id number] Apr, [facility] [address] [id number] [address] [place] [phone] Apr, Mass of throat R22.1 [facility] [address] [id number] [address] [place] [phone] 10 Apr, 2016 [facility] [address] [place] [id number] [address] [place] [phone] 10 Apr, 2016 Mass of throat R22.1 [facility] [address] [id number] [address] [place] [phone] 04 Apr, 2016 Mass of throat R22.1 [facility] [address] [id number] [address] [place] [phone] Mar, [facility] [address] [id number] [address] [place] [phone] Mar, [facility] [address] [id number] [address] [place] [phone] Mar, [facility] [address] [id number] [address] [place] [phone] Mar, Parathyroid abnormality E21. 5 and Encounter for immunization Z23 [facility] [address] [id number] [address] [place] [phone] Mar, [facility] [address] [id number] [address] [place] [phone] Mar, [facility] [address] [id number] [address] [place] [id number] 21 Feb, 2016 Renal insufficiency N28.9 an d Hyperparathyroidism E21.3 [facility] [address] [id number] [address] [place] [phone] 19 Feb, 2016 [facility] [address] [id number] [address] [place] [phone] 15 Feb, 2016 Renal insufficiency N28.9 an d Hyperparathyroidism E21.3 [facility] [address] [id number] [address] [place] [id number] 14 Feb, 2016 [facility] [address] [id number] [address] [place] [id number] 12 Feb, 2016 [facility] [address] [id number] [address] [place] [phone] 09 Feb, 2016 [facility] [address] [id number] [address] [place] [phone] Jan, [facility] [address] [id number] [address] [place] [address] Jan, Arthritis M19.90 ; Lumbago w ith sciatica, right side M54.41 and Other chronic pain G89.29 [facility] [address] [id number] [address] [place] [phone] Jan, [facility] [address] [facility] [id number] [address] [place] [id number] Dec, Arthritis M19.90 ; Lumbago w ith sciatica, right side M54.41 and Other chronic pain G89.29 [facility] [address] [facility] [id number] [address] [place] [id number] Nov, Deficiency of other specifie d B group vitamins E53.8 ; Primary insomnia F51.01 ; Mood disorder F39 and Lumbago with sciatica, right side M54.41 [facility] [address] [facility] [id number] [address] [place] [id number] Nov, Hyperparathyroidism E21.3 [facility] [address] [facility] [id number] [address] [place] [phone] Nov, Unspecified kidney failure N 19 and Hyperparathyroidism E21.3 [facility] [address] [facility] [id number] [address] [place] [id number] October, Hyperparathyroidism E21.3 [facility] [place] [address] [facility] [id number] [address] [place] [phone] October, [place] [address] [facility] [id number] [address] [place] [id number] October, Hyperparathyroidism E21.3 [facility] [place] [address] [facility] [id number] [address] [place] [id number] October, Hyperparathyroidism E21.3 [facility] [address] [facility] [id number] [address] [place] [id number] Sep, Hyperparathyroidism E21.3 ; Hypercholesterolemia E78.0 and Arthritis M19.90 [facility] [address] [facility] [id number] [address] [place] [id number] Aug, [place] [address] [facility] [id number] [address] [place] [id number] Aug, Deficiency of other specifie d B group vitamins E53.8 [facility] [address] [facility] [id number] [address] [place] [id number] Aug, [facility] [address] [facility] [id number] [address] [place] [id number] Jul, Urinary frequency R35.0 [facility] [address] [facility] [id number] [address] [place] [id number] Jul, Urinary frequency R35.0 [facility] [address] [facility] [id number] [address] [place] [phone] Jul, [facility] [address] [facility] [id number] [address] [place] [phone] Jul, [facility] [address] [facility] [id number] [address] [place] [id number] Jun, Pain in left knee M25.562 [facility] [address] [facility] [id number] [address] [place] [id number] Jun, [facility] [address] [facility] [id number] [address] [place] [id number] May, Swelling of left knee joint M25.462 [facility] [address] [facility] [id number] [address] [place] [id number] 16 May, 2015 [facility] [address] [facility] [id number] [address] [place] [id number] May, [facility] [address] [facility] [id number] [address] [place] [id number] May, [facility] [address] [facility] [id number] [address] [place] [id number] Apr, Renal insufficiency N28.9 an d Chronic kidney disease, stage 4 (severe) N18.4 [facility] [address] [facility] [id number] [address] [place] [address] Apr, Unspecified kidney failure N 19 [facility] [address] [id number] [address] [place] [address] Apr, Unspecified kidney failure N 19 [facility] [address] [id number] [address] [place] [address] Apr, [facility] [address] [id number] [address] [place] [address] Apr, Hyperparathyroidism, unspeci fied 252.00 [facility] [address] [id number] [address] [place] [id number] Apr, [facility] [address] [id number] [address] [place] [address] Mar, [facility] [address] [id number] [address] [place] [id number] Mar, [facility] [address] [id number] [address] [place] [address] Mar, Hyperparathyroidism, unspeci fied 252.00 [facility] [address] [id number] [address] [place] [address] Feb, [facility] [address] [id number] [address] [place] [address] Feb, Otalgia 388.70 [facility] [address] [id number] [address] [place] [address] Feb, [facility] [address] [id number] [address] [place] [phone] Feb, [facility] [address] [id number] [address] [place] [address] Jan, [facility] [address] [id number] [address] [place] [address] Jan, Hyperparathyroidism, unspeci fied 252.00 [facility] [address] [id number] [address] [place] [address] Jan, [facility] [address] [id number] [address] [place] [address] Jan, Other B-complex deficiencies 266.2 and Hyperparathyroidism, unspecified 252.00 [facility] [address] [id number] [address] [place] [id number] Jan, [facility] [address] [id number] [address] [place] [id number] Jan, [facility] [address] [id number] [address] [place] [phone] Jan, [facility] [address] [id number] [address] [place] [address] Dec, [facility] [address] [id number] [address] [place] [address] Dec, [facility] [address] [id number] [address] [place] [address] Dec, [facility] [address] [id number] [address] [place] [address] Nov, Routine check-up V70.0 and P re-op exam V72.84 [facility] [address] [id number] [address] [place] [phone] Nov, [facility] [address] [id number] [address] [place] [id number] Nov, [facility] [address] [id number] [address] [place] [id number] October, [facility] [address] [id number] [address] [place] [address] October, Other B-complex deficiencies 266.2 [facility] [address] [id number] [address] [place] [id number] October, [facility] [address] [id number] [address] [place] [id number] Sep, [facility] [address] [id number] [address] [place] [address] Sep, [facility] [address] [id number] [address] [place] [address], [place] [address] Aug, [facility] [address] [id number] [address] [place] [address], [place] [address] 20 Aug, 2014 [facility] [address] [id number] [address] [place] [address], [place] [address] 17 Aug, 2014 [facility] [address] [id number] [address] [place] [address], [place] [address] 17 Aug, 2014 [facility] [address] [id number] [address] [place] [address], [place] [address] Aug, [facility] [address] [id number] [address] [place] [address], [place] [address] Aug, [facility] [address] [id number] [address] [place] [address], [place] [address] 18 Jul, 2014 [facility] [address] [id number] [address] [place] [address], [place] [address] 18 Jul, 2014 [facility] [address] [id number] [address] [place] [address], [place] [address] 17 Jul, 2014 [facility] [address] [id number] [address] [place] [address], [place] [address] 17 Jul, 2014 [facility] [address] [id number] [address] [place] [address], [place] [address] 12 Jul, 2014 [facility] [address] [id number] [address] [place] [address], [place] [address] Jul, 2014 [facility] [address] [id number] [address] [place] [address], [place] [address] 10 Jul, 2014 [facility] [address] [id number] [address] [place] [address], [place] [address] 10 Jul, 2014 [facility] [address] [id number] [address] [place] [address], [place] [address] 09 Jul, 2014 [facility] [address] [id number] [address] [place] [address], [place] [address] Jul, [facility] [address] [id number] [address] [place] [address], [place] [address] Jul, [facility] [address] [id number] [address] [place] [address], [place] [address] Jul, 2014 [facility] [address] [id number] [address] [place] [address], [place] [address] Jul, [facility] [address] [id number] [address] [place] [address], [place] [address] Jul, [facility] [address] [id number] [address] [place] [address], [place] [address] Jun, [facility] [address] [id number] [address] [place] [address], [place] [address] Jun, [facility] [address] [id number] [address] [place] [address], [place] [address] Jun, [facility] [address] [id number] [address] [place] [address], [place] [address] Jun, [facility] [address] [id number] [address] [place] [address], [place] [address] Jun, [facility] [address] [id number] [address] [place] [address], [place] [address] Jun, [facility] [address] [id number] [address] [place] [address], [place] [address] Jun, [facility] [address] [id number] [address] [place] [address], [place] [address] Jun, [facility] [address] [id number] [address] [place] [address], [place] [address] Jun, [facility] [address] [id number] [address] [place] [address], [place] [address] Jun, [facility] [address] [id number] [address] [place] [address], [place] [address] Jun, [facility] [address] [id number] [address] [place] [address], [place] [address] Jun, [facility] [address] [id number] [address] [place] [address], [place] [address] Jun, [facility] [address] [id number] [address] [place] [address], [place] [address] Jun, [facility] [address] [id number] [address] [place] [address], [place] [address] May, [facility] [address] [id number] [address] [place] [address], [place] [address] May, [facility] [address] [id number] [address] [place] [address], [place] [address] May, [facility] [address] [id number] [address] [place] [address], [place] [address] May, [facility] [address] [id number] [address] [place] [address], [place] [address] Apr, [facility] [address] [id number] [address] [place] [address], [place] [address] Apr, [facility] [address] [id number] [address] [place] [address], [place] [address] Apr, [facility] [address] [id number] [address] [place] [address], [place] [address] Apr, [facility] [address] [id number] [address] [place] [address], [place] [address] Apr, [facility] [address] [id number] [address] [place] [address], [place] [address] Apr, [facility] [address] [id number] [address] [place] [address], [place] [address] Mar, [facility] [address] [id number] [address] [place] [address], [place] [address] Mar, [facility] [address] [id number] [address] [place] [address] [place] [address] 22 Mar, 2013 [facility] [address] [id number] [address] [place] [address], [place] [address] 22 Mar, 2014 [facility] [address] [id number] [address] [place] [address], [place] [address] 15 Mar, 2014 [facility] [address] [id number] [address] [place] [address], [place] [address] 15 Mar, 2014 [facility] [address] [id number] [address] [place] [address], [place] [address] 13 Mar, 2014 [facility] [address] [id number] [address] [place] [address], [place] [address] 13 Mar, 2014 [facility] [address] [id number] [address] [place] [address], [place] [address] 07 Mar, 2013 [facility] [address] [id number] [address] [place] [address], [place] [address] 07 Mar, 2013 [facility] [address] [id number] [address] [place] [address], [place] [address] 07 Mar, 2013 [facility] [address] [id number] [address] [place] [address], [place] [address] 07 Mar, 2013 [facility] [address] [id number] [address] [place] [address], [place] [address] 06 Mar, 2013 [facility] [address] [id number] [address] [place] [address], [place] [address] 26 Feb, 2013 [facility] [address] [id number] [address] [place] [address], [place] [address] 26 Sep, 2013 [facility] [address] [id number] [address] [place] [address], [place] [address] 23 Feb, 2013 [facility] [address] [id number] [address] [place] [address], [place] [address] 23 Feb, 2013 [facility] [address] [id number] [address] [place] [address], [place] [address] 19 Feb, 2013 [facility] [address] [id number] [facility] [place] [address] 19 Feb, 2013 [facility] [address] [id number] [facility] [place] [address] 13 Feb, 2014 [facility] [address] [id number] [address] [place] [address], [place] [address] 13 Feb, 2014 [facility] [address] [id number] [address] [place] [address], [place] [address] 12 Feb, 2014 [facility] [address] [id number] [address] [place] [address], [place] [address] 12 Feb, 2014 [facility] [address] [id number] [address] [place] [address], [place] [address] Jan, [facility] [address] [id number] [address] [place] [address], [place] [address] Jan, [facility] [address] [id number] [address] [place] [address], [place] [address] Dec, [facility] [address] [id number] [address] [place] [address], [place] [address] Dec, [facility] [address] [id number] [address] [place] [address], [place] [address] Dec, [facility] [address] [id number] [address] [place] [address], [place] [address] Dec, [facility] [address] [id number] [address] [place] [address], [place] [address] Dec, [facility] [address] [id number] [address] [place] [address], [place] [address] Dec, [facility] [address] [id number] [address] [place] [address], [place] [address] Nov, [facility] [address] [id number] [address] [place] [address], [place] [address] Nov, [facility] [address] [id number] [address] [place] [address], [place] [address] Nov, [facility] [address] [id number] [facility] [place] [address] Nov, [facility] [address] [id number] [facility] [address] October, [facility] [address] [id number] [facility] [address] October, [facility] [address] [id number] [address] [place] [address], [place] [address] October, [facility] [address] [id number] [facility] [address] October, [facility] [address] [id number] [address] [place] [address], [place] [address] October, [facility] [address] [id number] [address] [place] [address], [place] [address] October, [facility] [address] [id number] [address] [place] [address], [place] [address] October, [facility] [address] [id number] [address] [place] [address], [place] [address] October, [facility] [address] [id number] [address] [place] [address], [place] [address] October, [facility] [address] [id number] [address] [place] [address], [place] [address] October, [facility] [address] [id number] [address] [place] [address], [place] [address] October, [facility] [address] [id number] [address] [place] [address], [place] [address] October, [facility] [address] [id number] [address] [place] [address], [place] [address] October, [facility] [address] [id number] [address] [place] [address], [place] [address] October, [facility] [address] [id number] [facility] [address] October, [facility] [address] [id number] [address] [place] [address], [place] [address] October, [facility] [address] [id number] [facility] [address] Sep, [facility] [address] [id number] [address] [place] [address], [place] [address] Sep, [facility] [address] [id number] [address] [place] [address], [place] [address] Sep, [facility] [address] [id number] [address] [place] [address], [place] [address] Sep, [facility] [address] [id number] [address] [place] [address], [place] [address] Sep, [facility] [address] [id number] [address] [place] [address], [place] [address] Sep, [facility] [address] [id number] [address] [place] [address], [place] [address] Aug, [facility] [address] [id number] [address] [place] [address], [place] [address] Aug, [facility] [address] [id number] [address] [place] [address], [place] [address] Aug, [facility] [address] [id number] [address] [place] [address], [place] [address] Aug, [facility] [address] [id number] [address] [place] [address], [place] [address] Aug, [facility] [address] [id number] [address] [place] [address], [place] [address] Aug, [facility] [address] [id number] [address] [place] [address], [place] [address] Jul, [facility] [address] [id number] [address] [place] [address], [place] [address] Jul, [facility] [address] [id number] [address] [place] [address], [place] [address] Jul, [facility] [address] [id number] [address] [place] [address], [place] [address] Jul, [facility] [address] [id number] [address] [place] [address], [place] [address] Jun, [facility] [address] [id number] [address] [place] [address], [place] [address] Jun, [facility] [address] [id number] [address] [place] [address], [place] [address] May, [facility] [address] [id number] [address] [place] [address], [place] [address] May, [facility] [address] [id number] [address] [place] [address], [place] [address] May, [facility] [address] [id number] [address] [place] [address], [place] [address] May, [facility] [address] [id number] [address] [place] [address], [place] [address] May, [facility] [address] [id number] [address] [place] [address], [place] [address] Apr, [facility] [address] [id number] [address] [place] [address], [place] [address] Apr, [facility] [address] [id number] [address] [place] [address], [place] [address] Apr, [facility] [address] [id number] [address] [place] [address], [place] [address] Apr, [facility] [address] [id number] [address] [place] [address], [place] [address] Apr, [facility] [address] [id number] [address] [place] [address], [place] [address] Apr, [facility] [address] [id number] [address] [place] [address] [place] [address] 15 Mar, 2013 [facility] [address] [id number] [address] [place] [address], [place] [address] 15 Mar, 2013 [facility] [address] [id number] [address] [place] [address], [place] [address] 14 Mar, 2013 [facility] [address] [id number] [address] [place] [address], [place] [address] 14 Mar, 2013 [facility] [address] [id number] [address] [place] [address], [place] [address] 11 Mar, 2013 [facility] [address] [id number] [address] [place] [address], [place] [address] 11 Mar, 2013 [facility] [address] [id number] [address] [place] [address], [place] [address] 23 Feb, 2013 [facility] [address] [id number] [address] [place] [address], [place] [address] 19 Feb, 2013 [facility] [address] [id number] [address] [place] [address], [place] [address] 04 Feb, 2013 [facility] [address] [id number] [address] [place] [address], [place] [address] 30 Jan, 2013 [facility] [address] [id number] [address] [place] [address], [place] [address] Jan, [facility] [address] [id number] [address] [place] [address], [place] [address] Jan, [facility] [address] [id number] [address] [place] [address], [place] [address] 16 Jan, 2013 [facility] [address] [id number] [address] [place] [address], [place] [address] Jan, [facility] [address] [id number] [address] [place] [address], [place] [address] Jan, [facility] [address] [id number] [address] [place] [address], [place] [address] Dec, [facility] [address] [id number] [address] [place] [address], [place] [address] Dec, [facility] [address] [id number] [address] [place] [address], [place] [address] Dec, [facility] [address] [id number] [address] [place] [address], [place] [address] Dec, [facility] [address] [id number] [address] [place] [address], [place] [address] Dec, [facility] [address] [id number] [address] [place] [address], [place] [address] Dec, [facility] [address] [id number] [address] [place] [address], [place] [address] Nov, [facility] [address] [id number] [address] [place] [address], [place] [address] Nov, [facility] [address] [id number] [address] [place] [address], [place] [address] Nov, [facility] [address] [id number] [address] [place] [address], [place] [address] Nov, [facility] [address] [id number] [address] [place] [address], [place] [address] Nov, [facility] [address] [id number] [address] [place] [address], [place] [address] Nov, [facility] [address] [id number] [address] [place] [address], [place] [address] October, [facility] [address] [id number] [address] [place] [address], [place] [address] October, [facility] [address] [id number] [address] [place] [address], [place] [address] October, [facility] [address] [id number] [address] [place] [address], [place] [address] October, [facility] [address] [id number] [address] [place] [address], [place] [address] October, [facility] [address] [id number] [address] [place] [address], [place] [address] 30 Sep, 2012 [facility] [address] [id number] [address] [place] [address], [place] [address] 23 Sep, 2012 [facility] [address] [id number] [address] [place] [address], [place] [address] Sep, [facility] [address] [id number] [address] [place] [address], [place] [address] 18 Sep, 2012 [facility] [address] [id number] [address] [place] [address], [place] [address] Sep, [facility] [address] [id number] [address] [place] [address], [place] [address] Aug, [facility] [address] [id number] [address] [place] [address], [place] [address] Aug, [facility] [address] [id number] [address] [place] [address], [place] [address] 04 Aug, 2012 [facility] [address] [id number] [address] [place] [address], [place] [address] Jul, [facility] [address] [id number] [place] [address], [place] [address] Jul, [facility] [address] [id number] [address] [place] [address], [place] [address] Jul, [facility] [address] [id number] [address] [place] [address], [place] [id number] 08 Jul, 2012 [facility] [address] [id number] [address] [place] [address], [place] [address] 06 Jul, 2012 [facility] [address] [id number] [address] [place] [address], [place] [address] 05 Jul, 2012 [facility] [address] [id number] [address] [place] [address], [place] [address] 15 Jun, 2012 [facility] [address] [id number] [address] [place] [address], [place] [address] 16 Apr, 2012 [facility] [address] [id number] [address] [place] [address], [place] [address] Apr, [facility] [address] [id number] [address] [place] [address], [place] [address] Apr, [facility] [address] [id number] [address] [place] [address], [place] [address] Apr, [facility] [address] [id number] [address] [place] [address], [place] [address] Mar, [facility] [address] [id number] [address] [place] [address], [place] [address] Mar, [facility] [address] [id number] [address] [place] [address], [place] [address] Mar, [facility] [address] [id number] [address] [place] [address], [place] [address] Mar, [facility] [address] [id number] [address] [place] [address], [place] [address] Mar, [facility] [address] [id number] [address] [place] [address], [place] [address] Feb, [facility] [address] [id number] [address] [place] [address], [place] [address] Jan, [facility] [address] [id number] [address] [place] [address], [place] [address] Jan, [facility] [address] [id number] [address] [place] [address], [place] [address] Jan, [facility] [address] [id number] [address] [place] [address], [place] [address] Dec, [facility] [address] [id number] [address] [place] [address], [place] [address] Nov, [facility] [address] [id number] [address] [place] [address], [place] [address] Nov, [facility] [address] [id number] [address] [place] [id number] Nov, [facility] [address] [id number] [address] [place] [id number] Nov, [facility] [address] [facility] [id number] [address] [place] [id number] Nov, [facility] [address] [id number] [address] [place] [id number] October, [facility] [address] [facility] [id number] [address] [place] [id number] October, [facility] [address] [facility] [id number] [address] [place] [id number] October, [facility] [address] [facility] [id number] [address] [place] [id number] October, [facility] [address] [facility] [id number] [address] [place] [id number] October, IMMUNIZATIONS No Known Immunizations SOCIAL HISTORY Never Assessed REASON FOR VISIT PLAN OF CARE VITAL SIGNS MEDICATIONS Unknown Medications RESULTS No Results PROCEDURES Procedure Date Ordered Result Body Site HEPATIC FUNCTION PANEL Jul 28, 2014 ACUTE HEPATITIS PANEL Jul 28, 2014 VENIPUNCT, ROUTINE* Jul 28, 2014 INSTRUCTIONS MEDICATIONS ADMINISTERED No Known Medications [...]
--- OUTSIDE RECORDS SUMMARY | 2020-01-25 07:42 | XMS REPORT ---
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 Name Role Phone STEPHAN CORDERO Unavailable PROBLEMS Type Condition ICD9-CM Code [id number] Code Onset Dates Condition S tatus SNOMED Code Problem Primary insomnia F51.01 Active 397 2004 Problem Hypercholesteremia E78.0 Active 1 8542848 Problem Corns L84 Active 334517057 Problem Arthritis M19.90 Active 5561244 Problem Hyperparathyroidism E21.3 Active 65274830 Problem 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 Active 10125313 Problem 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 Active 54325635 Problem BPV (benign positional vertigo), bilateral H81.13 Active 743144657 Problem Unspecified kidney failure N19 Act chip 08850813 Problem Myalgia M79.1 Active 33548761 Problem 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 Active 081340324 Problem Mood disorder F39 Active 144577 05 Problem Chronic kidney disease, stage 4 (severe) N18.4 Active 612122476 Problem Primary osteoarthritis of left knee M17.12 Active 288036841041981 Problem Irritable bowel syndrome with both constipation and diarrh ea K58.2 Active 50250423 Problem Body mass index (BMI) of 40.0-44.9 in adult Z68.41 Active 917192604 ALLERGIES No Information ENCOUNTERS Encounter Location Date Diagnosis [facility] [address] [facility] [id number] [address] [place] [phone] Mar, [facility] [address] [facility] [id number] [address] [place] [phone] Mar, [facility] [address] [facility] [id number] [address] [place] [address] Feb, Arthritis M19.90 [facility] [address] [id number] [address] [place] [id number] 13 Feb, 2019 [facility] [address] [facility] [id number] [address] [place] [id number] 10 Feb, 2019 Other specified disorders of bone density and structure, unspecified site M85.80 [facility] [address] [facility] [id number] [address] [place] [address] Jan, Arthritis M19.90 [facility] [address] [facility] [id number] [address] [place] [address] Dec, Arthritis M19.90 [facility] [address] [facility] [id number] [address] [place] [address] Nov, Inflammatory spondylopathy o f sacral region M46.98 [facility] [address] [facility] [id number] [address] [place] [id number] Nov, [facility] [address] [place] [id number] [address] [place] [phone] 14 Nov, 2018 Labyrinthitis of left ear H8 3.02 [facility] [address] [facility] [id number] [address] [place] [address] 03 Nov, 2018 Arthritis M19.90 [facility] [address] [place] [id number] [address] [place] [address] 15 Sep, 2018 Arthritis M19.90 [facility] [address] [facility] [id number] [address] [place] [address] Sep, Renal insufficiency N28.9 an d Unspecified kidney failure N19 [facility] [address] [facility] [id number] [address] [place] [address] Sep, Renal insufficiency N28.9 an d Unspecified kidney failure N19 [facility] [address] [facility] [id number] [address] [place] [address] Sep, Arthritis M19.90 [facility] [address] [facility] [id number] [address] [place] [address] Aug, Exercise counseling Z71.82 [place] [address] [facility] [id number] [address] [place] [id number] 08 Aug, 2018 [place] [address] [place] [id number] [address] [place] [id number] 27 Jul, 2018 Labyrinthitis of left ear H8 3.02 [place] [address] [facility] [id number] [address] [place] [id number] 22 Jul, 2018 Labyrinthitis of left ear H8 3.02 [place] [address] [facility] [id number] [address] [place] [address] 19 Jul, 2018 Exercise counseling Z71.82 [place] [address] [place] [id number] [address] [place] [id number] 18 Jul, 2018 [place] [address] [place] [id number] [address] [place] [address] 14 Jul, 2018 Arthritis M19.90 [place] [address] [place] [id number] [address] [place] [address] 13 Jul, 2018 Encounter for Medicare annua l wellness exam Z00.00 ; Chronic kidney disease, stage 4 (severe) N18.4 ; Body mass index (BMI) of 40.0-44.9 in adult Z68.41 ; Hyperparathyroidism E21.3 and BMI 40.0-44.9, adult Z68.41 [place] [address] [place] [id number] [address] [place] [address] 13 Jul, 2018 Encounter for Medicare annua l wellness exam Z00.00 ; Chronic kidney disease, stage 4 (severe) N18.4 ; Hyperparathyroidism E21.3 ; Body mass index (BMI) of 40.0-44.9 in adult Z68.41 and Encounter for immunization Z23 [place] [address] [place] [id number] [address] [place] [id number] 11 Jul, 2018 Tail bone pain M53.3 [place] [address] [facility] [id number] [address] [place] [address] Jun, Exercise counseling Z71.82 [facility] [address] [id number] [address] [place] [phone] Jun, Labyrinthitis of left ear H8 3.02 [facility] [address] [id number] [address] [place] [address] Jun, Tail bone pain M53.3 ; Irrit able bowel syndrome with both constipation and diarrhea K58.2 and Dysfunction of left eustachian tube H69.82 [facility] [address] [id number] [address] [place] [address] Jun, Exercise counseling Z71.82 [facility] [address] [id number] [address] [place] [address] Jun, Arthritis M19.90 [facility] [address] [id number] [address] [place] [address] Jun, Irritable bowel syndrome wit h both constipation and diarrhea K58.2 ; Tail bone pain M53.3 and Dysfunction of left eustachian tube H69.82 [facility] [address] [id number] [address] [place] [address] Jun, Exercise counseling Z71.82 [facility] [address] [id number] [address] [place] [address] Jun, Exercise counseling Z71.82 [facility] [address] [id number] [address] [place] [address] Jun, Labyrinthitis of left ear H8 3.02 [facility] [address] [id number] [address] [place] [address] May, Exercise counseling Z71.82 [facility] [address] [id number] [address] [place] [address] May, Arthritis M19.90 [facility] [address] [id number] [address] [place] [address] May, Exercise counseling Z71.82 [facility] [address] [id number] [address] [place] [address] May, Exercise counseling Z71.82 [facility] [address] [id number] [address] [place] [address] May, Labyrinthitis of left ear H8 3.02 [facility] [address] [id number] [address] [place] [address] May, Exercise counseling Z71.82 [facility] [address] [id number] [address] [place] [address] Apr, Arthritis M19.90 [facility] [address] [id number] [address] [place] [address] Apr, Exercise counseling Z71.82 [facility] [address] [id number] [address] [place] [address] Apr, Exercise counseling Z71.82 [facility] [address] [id number] [address] [place] [address] Apr, Primary osteoarthritis of le ft knee M17.12 [facility] [address] [id number] [address] [place] [phone] Apr, Labyrinthitis of left ear H8 3.02 [facility] [address] [id number] [address] [place] [address] Mar, Arthritis M19.90 [facility] [address] [id number] [address] [place] [id number] Mar, [facility] [address] [id number] [address] [place] [address] Mar, Chronic kidney disease, stag e 4 (severe) N18.4 [facility] [address] [facility] [id number] [address] [place] [address] Mar, Chronic kidney disease, stag e 4 (severe) N18.4 [facility] [address] [facility] [id number] [address] [place] [address] Mar, Labyrinthitis of left ear H8 3.02 [facility] [address] [place] [address] Mar, Chronic kidney disease, stag e 4 (severe) N18.4 ; Knee pain, left anterior M25.562 ; 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 and Encounter for immunization Z23 [place] [address] [place] [address] Mar, Arthritis M19.90 [place] [address] [place] [id number] [address] [place] [address] Feb, Labyrinthitis of left ear H8 3.02 [place] [address] [address] Feb, Arthritis M19.90 [place] [address] [address] Jan, Labyrinthitis of left ear H8 3.02 [place] [address] [place] [id number] [address] [place] [address] Jan, Arthritis M19.90 [place] [address] [address] Dec, Labyrinthitis of left ear H8 3.02 [place] [address] [place] [id number] [address] [place] [address] Nov, Arthritis M19.90 [facility] [address] [place] [id number] [address] [place] [address] Nov, Labyrinthitis of left ear H8 3.02 [place] [address] [place] [id number] [address] [place] [address] Nov, BMI 40.0-44.9, adult Z68.41 ; Chronic kidney disease, stage 4 (severe) N18.4 and Acute right-sided thoracic back pain M54.6 [place] [address] [address] October, Labyrinthitis of left ear H8 3.02 and Arthritis M19.90 [facility] [address] [address] Sep, BPV (benign positional verti go), bilateral H81.13 ; Dysfunction of left eustachian tube H69.82 and BMI 40.0-44.9, adult Z68.41 [facility] [address] [address] Sep, Labyrinthitis of left ear H8 3.02 and Arthritis M19.90 [place] [address] [address] Sep, [place] [address] [address] Sep, [place] [address] [address] Sep, Chronic kidney disease, stag e 4 (severe) N18.4 [place] [address] [address] Sep, Chronic kidney disease, stag e 4 (severe) N18.4 [facility] [address] [place] [id number] [place] [address] Aug, Labyrinthitis of left ear H8 3.02 and Arthritis M19.90 [facility] [address] [place] [id number] [address] [place] [address] Aug, [facility] [address] [address] Jul, [facility] [address] [address] Jul, Arthritis M19.90 and Labyrin thitis of left ear H83.02 [place] [address] [place] [address] 08 Jul, 2017 [place] [address] [address] Jun, [place] [address] [address] Jun, Arthritis M19.90 and Labyrin thitis of left ear H83.02 [place] [address] [address] Jun, Pre-op evaluation Z01.818 ; BMI 40.0-44.9, adult Z68.41 and Encounter for immunization Z23 [place] [address] [address] May, Arthritis M19.90 and Labyrin thitis of left ear H83.02 [place] [address] [address] Apr, Labyrinthitis of left ear H8 3.02 [place] [address] [address] Apr, Arthritis M19.90 and Labyrin thitis of left ear H83.02 [place] [address] [address] Mar, Arthritis M19.90 and Labyrin thitis of left ear H83.02 [place] [address] [address] Mar, Chronic kidney disease, stag e 4 (severe) N18.4 [place] [address] [place] [id number] [place] [address] Feb, Arthritis M19.90 and Labyrin thitis of left ear H83.02 [place] [address] [place] [id number] [place] [address] Jan, Labyrinthitis of left ear H8 3.02 and 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 [facility] [address] [id number] [address] [place] [address] Dec, Arthritis M19.90 [facility] [address] [id number] [address] [place] [address], [place] [address] Dec, BPV (benign positional verti go), bilateral H81.13 [facility] [address] [id number] [address] [place] [address] Dec, [facility] [address] [id number] [address] [place] [address] Dec, [facility] [address] [facility] [id number] [address] [place] [address] Dec, [facility] [address] [facility] [id number] [address] [place] [address] Nov, Arthritis M19.90 and Deficie ncy 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 [facility] [address] [id number] [address] [place] [address] Nov, Arthritis M19.90 [facility] [address] [facility] [id number] [address] [place] [address] Nov, Hyperparathyroidism E21.3 [facility] [address] [facility] [id number] [address] [place] [address] October, [facility] [address] [id number] [address] [place] [address] October, Hyperparathyroidism E21.3 [facility] [address] [id number] [address] [place] [address] October, [facility] [address] [facility] [id number] [address] [place] [address] October, Renal insufficiency N28.9 an d Hyperparathyroidism E21.3 [facility] [address] [facility] [id number] [address] [place] [address] October, [facility] [address] [place] [id number] [address] [place] [address] October, Renal insufficiency N28.9 an d Hyperparathyroidism E21.3 [facility] [address] [address] October, Arthritis M19.90 [facility] [address] [address] Sep, [facility] [address] [address] Sep, Lumbar neuritis M54.16 ; Tho racic abscess J86.9 and 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 [facility] [address] [facility] [id number] [address] [place] [address] Sep, [facility] [address] [address] Aug, Arthritis M19.90 [facility] [address] [address] Aug, Hyperparathyroidism E21.3 [facility] [address] [address] Aug, Hyperparathyroidism E21.3 [facility] [address] [place] [id number] [address] [place] [address] Aug, Arthritis M19.90 [facility] [address] [place] [address] Jul, Mass of throat R22.1 [facility] [address] [place] [address] Jul, [facility] [address] [place] [id number] [address] [place] [address] Jul, Arthritis M19.90 [facility] [address] [place] [address] Jun, Arthritis M19.90 [facility] [address] [place] [id number] [address] [place] [address] 13 Jun, 2016 [facility] [address] [facility] [id number] [address] [place] [address] 09 Jun, 2016 Renal insufficiency N28.9 an d 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 [facility] [address] [facility] [id number] [address] [place] [address] 05 Jun, 2016 Medicare welcome exam Z00.00 ; Encounter for immunization Z23 ; Arthritis M19.90 ; Medicare annual wellness visit, initial Z00.00 ; Medicare annual wellness visit, subsequent Z00.00 and 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 [facility] [address] [facility] [id number] [address] [place] [address] 29 May, 2016 Renal insufficiency N28.9 an d 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 [facility] [address] [facility] [id number] [address] [place] [address] 19 May, 2016 Renal insufficiency N28.9 [facility] [address] [facility] [id number] [address] [place] [address] 16 May, 2016 Renal insufficiency N28.9 [facility] [address] [facility] [id number] [address] [place] [address] 14 May, 2016 [facility] [address] [facility] [id number] [address] [place] [address] 16 Apr, 2016 [facility] [address] [facility] [id number] [address] [place] [address] 16 Apr, 2016 [facility] [address] [facility] [id number] [address] [place] [address] 14 Apr, 2016 Mass of throat R22.1 [facility] [address] [facility] [id number] [address] [place] [address] 10 Apr, 2016 [facility] [address] [facility] [id number] [address] [place] [address] 10 Apr, 2016 Mass of throat R22.1 [facility] [address] [facility] [id number] [address] [place] [address] Apr, Mass of throat R22.1 [facility] [address] [id number] [address] [place] [address] Mar, [facility] [address] [id number] [address] [place] [phone] Mar, [facility] [address] [facility] [id number] [address] [place] [address] Mar, [facility] [address] [facility] [id number] [address] [place] [address] Mar, Parathyroid abnormality E21. 5 and Encounter for immunization Z23 [facility] [address] [facility] [id number] [address] [place] [address] Mar, [facility] [address] [facility] [id number] [address] [place] [address] Mar, [facility] [address] [facility] [id number] [address] [place] [address] 21 Feb, 2016 Renal insufficiency N28.9 an d Hyperparathyroidism E21.3 [facility] [address] [facility] [id number] [address] [place] [address] 19 Feb, 2016 [facility] [address] [facility] [id number] [address] [place] [address] 15 Feb, 2016 Renal insufficiency N28.9 an d Hyperparathyroidism E21.3 [facility] [address] [facility] [id number] [address] [place] [address] 14 Feb, 2016 [facility] [address] [facility] [id number] [address] [place] [address] 12 Feb, 2016 [facility] [address] [facility] [id number] [address] [place] [address] 09 Feb, 2016 [facility] [address] [facility] [id number] [address] [place] [id number] Jan, [facility] [address] [facility] [id number] [address] [place] [address] Jan, Arthritis M19.90 ; Lumbago w ith sciatica, right side M54.41 and Other chronic pain G89.29 [facility] [address] [facility] [id number] [address] [place] [address] Jan, [place] [address] [facility] [id number] [address] [place] [address] Dec, Arthritis M19.90 ; Lumbago w ith sciatica, right side M54.41 and Other chronic pain G89.29 [place] [address] [facility] [id number] [address] [place] [id number] 16 Nov, 2015 Deficiency of other specifie d B group vitamins E53.8 ; Primary insomnia F51.01 ; Mood disorder F39 and Lumbago with sciatica, right side M54.41 [place] [address] [address] [place] [id number] [address] [place] [id number] Nov, Hyperparathyroidism E21.3 [place] [address] [address] [place] [id number] [address] [place] [phone] Nov, Unspecified kidney failure N 19 and Hyperparathyroidism E21.3 [place] [address] [address] [place] [id number] [address] [place] [phone] October, Hyperparathyroidism E21.3 [place] [address] [address] [place] [id number] [address] [place] [phone] October, [place] [address] [address] [place] [id number] [address] [place] [phone] October, Hyperparathyroidism E21.3 [place] [address] [address] [place] [id number] [address] [place] [phone] October, Hyperparathyroidism E21.3 [place] [address] [place] [id number] [address] [place] [phone] Sep, Hyperparathyroidism E21.3 ; Hypercholesterolemia E78.0 and Arthritis M19.90 [place] [address] [address] [place] [id number] [address] [place] [phone] Aug, [facility] [address] [facility] [id number] [address] [place] [phone] Aug, Deficiency of other specifie d B group vitamins E53.8 [facility] [address] [facility] [id number] [address] [place] [id number] Aug, [facility] [address] [facility] [id number] [address] [place] [phone] Jul, Urinary frequency R35.0 [facility] [address] [facility] [id number] [address] [place] [phone] Jul, Urinary frequency R35.0 [facility] [address] [facility] [id number] [address] [place] [phone] Jul, [facility] [address] [place] [id number] [address] [place] [id number] Jul, [facility] [address] [place] [id number] [address] [place] [phone] Jun, Pain in left knee M25.562 [facility] [address] [facility] [id number] [address] [place] [id number] Jun, [facility] [address] [place] [id number] [address] [place] [phone] May, Swelling of left knee joint M25.462 [facility] [address] [place] [id number] [address] [place] [phone] May, [facility] [address] [facility] [facility] [id number] [address] [place] [address] May, [facility] [address] [id number] [address] [place] [address] May, [facility] [address] [id number] [address] [place] [address] Apr, Renal insufficiency N28.9 an d Chronic kidney disease, stage 4 (severe) N18.4 [facility] [address] [id number] [address] [place] [address] Apr, Unspecified kidney failure N 19 [facility] [address] [id number] [address] [place] [address] Apr, Unspecified kidney failure N 19 [facility] [address] [facility] [id number] [address] [place] [address] Apr, [facility] [address] [id number] [address] [place] [address] Apr, Hyperparathyroidism, unspeci fied 252.00 [facility] [address] [id number] [address] [place] [address] Apr, [facility] [address] [id number] [address] [place] [address] Mar, [facility] [address] [id number] [address] [place] [address] Mar, [facility] [address] [id number] [address] [place] [address] Mar, Hyperparathyroidism, unspeci fied 252.00 [facility] [address] [id number] [address] [place] [address] Feb, [facility] [address] [facility] [id number] [address] [place] [address] Feb, Otalgia 388.70 [facility] [address] [facility] [id number] [address] [place] [address] Feb, [facility] [address] [id number] [address] [place] [address] Feb, [facility] [address] [id number] [address] [place] [address] Jan, [facility] [address] [facility] [id number] [address] [place] [address] Jan, Hyperparathyroidism, unspeci fied 252.00 [facility] [address] [id number] [address] [place] [address] Jan, [facility] [address] [id number] [address] [place] [address] Jan, Other B-complex deficiencies 266.2 and Hyperparathyroidism, unspecified 252.00 [facility] [address] [id number] [address] [place] [address] Jan, [facility] [address] [id number] [address] [place] [address] Jan, [facility] [address] [id number] [address] [place] [address] Jan, [facility] [address] [id number] [address] [place] [address] Dec, [facility] [address] [id number] [address] [place] [address] Dec, [facility] [address] [id number] [address] [place] [address] Dec, [facility] [address] [id number] [address] [place] [address] Nov, Routine check-up V70.0 and P re-op exam V72.84 [facility] [address] [id number] [address] [place] [address] Nov, [facility] [address] [id number] [address] [place] [address] Nov, [facility] [address] [id number] [address] [place] [address] October, [facility] [address] [id number] [address] [place] [address] October, Other B-complex deficiencies 266.2 [facility] [address] [id number] [address] [place] [address] October, [facility] [address] [id number] [address] [place] [address] Sep, [facility] [address] [id number] [address] [place] [address], [place] [address] 13 Sep, 2014 [facility] [address] [id number] [address] [place] [address], [place] [address] 20 Aug, 2014 [facility] [address] [id number] [address] [place] [address], [place] [address] 20 Aug, 2014 [facility] [address] [id number] [address] [place] [address], [place] [address] 17 Aug, 2014 [facility] [address] [id number] [address] [place] [address], [place] [address] 17 Aug, 2014 [facility] [address] [id number] [address] [place] [address], [place] [address] 11 Aug, 2014 [facility] [address] [id number] [address] [place] [address], [place] [address] 11 Aug, 2014 [facility] [address] [id number] [address] [place] [address], [place] [address] 18 Jul, 2014 [facility] [address] [id number] [address] [place] [address], [place] [address] 18 Jul, 2014 [facility] [address] [id number] [address] [place] [address], [place] [address] 17 Jul, 2014 [facility] [address] [id number] [address] [place] [address], [place] [address] 17 Jul, 2014 [facility] [address] [id number] [address] [place] [address], [place] [address] 12 Jul, 2014 [facility] [address] [id number] [address] [place] [address], [place] [address] 12 Jul, 2014 [facility] [address] [id number] [address] [place] [address], [place] [address] 10 Jul, 2014 [facility] [address] [id number] [address] [place] [address], [place] [address] 10 Jul, 2014 [facility] [address] [id number] [address] [place] [address], [place] [address] Jul, 2014 [facility] [address] [id number] [address] [place] [address], [place] [address] Jul, 2014 [facility] [address] [id number] [address] [place] [address], [place] [address] Jul, 2014 [facility] [address] [id number] [address] [place] [address], [place] [address] Jul, 2014 [facility] [address] [id number] [address] [place] [address], [place] [address] Jul, [facility] [address] [id number] [address] [place] [address], [place] [address] Jul, [facility] [address] [id number] [address] [place] [address], [place] [address] Jun, [facility] [address] [id number] [address] [place] [address], [place] [address] Jun, [facility] [address] [id number] [address] [place] [address], [place] [address] Jun, [facility] [address] [id number] [address] [place] [address], [place] [address] Jun, [facility] [address] [id number] [address] [place] [address], [place] [address] Jun, [facility] [address] [id number] [address] [place] [address], [place] [address] Jun, [facility] [address] [id number] [address] [place] [address], [place] [address] Jun, [facility] [address] [id number] [address] [place] [address], [place] [address] Jun, [facility] [address] [id number] [address] [place] [address], [place] [address] Jun, [facility] [address] [id number] [address] [place] [address], [place] [address] Jun, [facility] [address] [id number] [address] [place] [address], [place] [address] Jun, [facility] [address] [id number] [address] [place] [address], [place] [address] Jun, [facility] [address] [id number] [address] [place] [address], [place] [address] Jun, [facility] [address] [id number] [address] [place] [address], [place] [address] Jun, [facility] [address] [id number] [address] [place] [address], [place] [address] May, [facility] [address] [id number] [address] [place] [address], [place] [address] May, [facility] [address] [id number] [address] [place] [address], [place] [address] May, [facility] [address] [id number] [address] [place] [address], [place] [address] May, [facility] [address] [id number] [address] [place] [address], [place] [address] Apr, [facility] [address] [id number] [address] [place] [address], [place] [address] Apr, [facility] [address] [id number] [address] [place] [address], [place] [address] Apr, [facility] [address] [id number] [address] [place] [address], [place] [address] Apr, [facility] [address] [id number] [address] [place] [address], [place] [address] Apr, [facility] [address] [id number] [address] [place] [address], [place] [address] Apr, [facility] [address] [id number] [address] [place] [address], [place] [address] 24 Mar, 2014 [facility] [address] [id number] [address] [place] [address], [place] [address] 24 Mar, 2014 [facility] [address] [id number] [address] [place] [address], [place] [address] 22 Mar, 2014 [facility] [address] [id number] [address] [place] [address], [place] [address] 22 Mar, 2014 [facility] [address] [id number] [address] [place] [address], [place] [address] 15 Mar, 2014 [facility] [address] [id number] [address] [place] [address], [place] [address] 15 Mar, 2014 [facility] [address] [id number] [address] [place] [address], [place] [address] Mar, [facility] [address] [id number] [address] [place] [address], [place] [address] 13 Mar, 2014 [facility] [address] [id number] [address] [place] [address], [place] [address] 07 Mar, 2013 [facility] [address] [id number] [address] [place] [address], [place] [address] 07 Mar, 2014 [facility] [address] [id number] [address] [place] [address], [place] [address] 07 Mar, 2013 [facility] [address] [id number] [address] [place] [address], [place] [address] 07 Mar, 2014 [facility] [address] [id number] [address] [place] [address], [place] [address] 06 Mar, 2013 [facility] [address] [id number] [address] [place] [address], [place] [address] 26 Feb, 2013 [facility] [address] [id number] [address] [place] [address], [place] [address] 26 Feb, 2013 [facility] [address] [id number] [address] [place] [address], [place] [address] 23 Feb, 2013 [facility] [address] [id number] [address] [place] [address], [place] [address] 23 Feb, 2014 [facility] [address] [id number] [address] [place] [address], [place] [address] 19 Feb, 2014 [facility] [address] [id number] [address] [place] [address], [place] [address] 19 Feb, 2014 [facility] [address] [id number] [address] [place] [address], [place] [address] 13 Feb, 2014 [facility] [address] [id number] [address] [place] [address], [place] [address] 13 Feb, 2014 [facility] [address] [id number] [address] [place] [address], [place] [address] 12 Feb, 2014 [facility] [address] [id number] [address] [place] [address], [place] [address] Feb, [facility] [address] [id number] [address] [place] [address], [place] [address] Jan, [facility] [address] [id number] [address] [place] [address], [place] [address] Jan, [facility] [address] [id number] [address] [place] [address], [place] [address] Dec, [facility] [address] [id number] [address] [place] [address], [place] [address] Dec, [facility] [address] [id number] [address] [place] [address], [place] [address] Dec, [facility] [address] [id number] [address] [place] [address], [place] [address] Dec, [facility] [address] [id number] [address] [place] [address], [place] [address] Dec, [facility] [address] [id number] [address] [place] [address], [place] [address] Dec, [facility] [address] [id number] [address] [place] [address], [place] [address] Nov, [facility] [address] [id number] [address] [place] [address], [place] [address] Nov, [facility] [address] [id number] [facility] [place] [address] Nov, [facility] [address] [id number] [address] [place] [address], [place] [address] Nov, [facility] [address] [id number] [address] [place] [address], [place] [address] October, [facility] [address] [id number] [address] [place] [address], [place] [address] October, [facility] [address] [id number] [address] [place] [address], [place] [address] October, [facility] [address] [id number] [address] [place] [address], [place] [address] October, [facility] [address] [id number] [address] [place] [address], [place] [address] October, [facility] [address] [id number] [address] [place] [address], [place] [address] October, [facility] [address] [id number] [address] [place] [address], [place] [address] October, [facility] [address] [id number] [address] [place] [address], [place] [address] October, [facility] [address] [id number] [address] [place] [address], [place] [address] October, [facility] [address] [id number] [address] [place] [address], [place] [address] October, [facility] [address] [id number] [address] [place] [address], [place] [address] October, [facility] [address] [id number] [address] [place] [address], [place] [address] October, [facility] [address] [id number] [address] [place] [address], [place] [address] October, [facility] [address] [id number] [facility] [place] [address] October, [facility] [address] [id number] [facility] [place] [address] October, [facility] [address] [id number] [address] [place] [address], [place] [address] October, [facility] [address] [id number] [address] [place] [address], [place] [address] Sep, [facility] [address] [id number] [address] [place] [address], [place] [address] Sep, [facility] [address] [id number] [address] [place] [address], [place] [address] Sep, [facility] [address] [id number] [address] [place] [address], [place] [address] Sep, [facility] [address] [id number] [address] [place] [address], [place] [address] Sep, [facility] [address] [id number] [address] [place] [address], [place] [address] Sep, [facility] [address] [id number] [address] [place] [address], [place] [address] Aug, [facility] [address] [id number] [address] [place] [address], [place] [address] Aug, [facility] [address] [id number] [address] [place] [address], [place] [address] Aug, [facility] [address] [id number] [address] [place] [address], [place] [address] Aug, [facility] [address] [id number] [address] [place] [address], [place] [address] Aug, [facility] [address] [id number] [address] [place] [address], [place] [address] Aug, [facility] [address] [id number] [address] [place] [address], [place] [address] Jul, [facility] [address] [id number] [address] [place] [address], [place] [address] Jul, [facility] [address] [id number] [address] [place] [address], [place] [address] Jul, [facility] [address] [id number] [address] [place] [address], [place] [address] Jul, [facility] [address] [id number] [address] [place] [address], [place] [address] Jun, [facility] [address] [id number] [address] [place] [address], [place] [address] Jun, [facility] [address] [id number] [address] [place] [address], [place] [address] May, [facility] [address] [id number] [address] [place] [address], [place] [address] May, [facility] [address] [id number] [address] [place] [address], [place] [address] May, [facility] [address] [id number] [address] [place] [address], [place] [address] May, [facility] [address] [id number] [address] [place] [address], [place] [address] May, [facility] [address] [id number] [address] [place] [address], [place] [address] Apr, [facility] [address] [id number] [address] [place] [address], [place] [address] Apr, [facility] [address] [id number] [address] [place] [address], [place] [address] Apr, [facility] [address] [id number] [address] [place] [address], [place] [address] Apr, [facility] [address] [id number] [address] [place] [address], [place] [address] Apr, [facility] [address] [id number] [address] [place] [address], [place] [address] 04 Apr, 2013 [facility] [address] [id number] [address] [place] [address], [place] [address] 15 Mar, 2013 [facility] [address] [id number] [address] [place] [address], [place] [address] 15 Mar, 2013 [facility] [address] [id number] [address] [place] [address], [place] [address] 14 Mar, 2013 [facility] [address] [id number] [address] [place] [address], [place] [address] 14 Mar, 2013 [facility] [address] [id number] [address] [place] [address], [place] [address] 11 Mar, 2013 [facility] [address] [id number] [address] [place] [address], [place] [address] Mar, [facility] [address] [id number] [address] [place] [address], [place] [address] 23 Feb, 2013 [facility] [address] [id number] [address] [place] [address], [place] [address] 19 Feb, 2013 [facility] [address] [id number] [address] [place] [address], [place] [address] 04 Feb, 2013 [facility] [address] [id number] [address] [place] [address], [place] [address] 30 Jan, 2013 [facility] [address] [id number] [address] [place] [address], [place] [address] Jan, [facility] [address] [id number] [address] [place] [address], [place] [address] Jan, [facility] [address] [id number] [address] [place] [address], [place] [address] 16 Jan, 2013 [facility] [address] [id number] [address] [place] [address], [place] [address] Jan, [facility] [address] [id number] [address] [place] [address], [place] [address] Jan, [facility] [address] [id number] [address] [place] [address], [place] [address] Dec, [facility] [address] [id number] [address] [place] [address], [place] [address] Dec, [facility] [address] [id number] [address] [place] [address], [place] [address] Dec, [facility] [address] [id number] [address] [place] [address], [place] [address] Dec, [facility] [address] [id number] [address] [place] [address], [place] [address] Dec, [facility] [address] [id number] [address] [place] [address], [place] [address] Dec, [facility] [address] [id number] [address] [place] [address], [place] [address] Nov, [facility] [address] [id number] [address] [place] [address], [place] [address] Nov, [facility] [address] [id number] [address] [place] [address], [place] [address] Nov, [facility] [address] [id number] [address] [place] [address], [place] [address] Nov, [facility] [address] [id number] [address] [place] [address], [place] [address] Nov, [facility] [address] [id number] [address] [place] [address], [place] [address] Nov, [facility] [address] [id number] [address] [place] [address], [place] [address] October, [facility] [address] [id number] [address] [place] [address], [place] [address] October, [facility] [address] [id number] [address] [place] [address], [place] [address] October, [facility] [address] [id number] [address] [place] [address] October, [facility] [address] [id number] [address] [place] [address], [place] [address] October, [facility] [address] [id number] [address] [place] [address], [place] [address] Sep, [facility] [address] [id number] [address] [place] [address], [place] [address] Sep, [facility] [address] [id number] [address] [place] [address], [place] [address] Sep, [facility] [address] [id number] [address] [place] [address], [place] [address] Sep, [facility] [address] [id number] [address] [place] [address], [place] [address] Sep, [facility] [address] [id number] [address] [place] [address], [place] [address] Aug, [facility] [address] [id number] [address] [place] [address], [place] [address] Aug, [facility] [address] [id number] [address] [place] [address], [place] [address] Aug, [facility] [address] [id number] [address] [place] [address], [place] [address] Jul, [facility] [address] [id number] [address] [place] [address], [place] [address] Jul, [facility] [address] [id number] [address] [place] [address], [place] [address] Jul, [facility] [address] [id number] [address] [place] [address], [place] [address] 08 Jul, 2012 [facility] [address] [id number] [address] [place] [address], [place] [address] 06 Jul, 2012 [facility] [address] [id number] [address] [place] [address] 05 Jul, 2012 [facility] [address] [id number] [address] [place] [address], [place] [address] Jun, [facility] [address] [id number] [address] [place] [address], [place] [address] Apr, [facility] [address] [id number] [address] [place] [address], [place] [address] Apr, [facility] [address] [id number] [address] [place] [address], [place] [address] Apr, [facility] [address] [id number] [address] [place] [address], [place] [address] Apr, [facility] [address] [id number] [address] [place] [address], [place] [address] Mar, [facility] [address] [id number] [address] [place] [address], [place] [id number] Mar, [facility] [address] [id number] [address] [place] [address], [place] [address] Mar, [facility] [address] [id number] [address] [place] [address], [place] [address] Mar, [facility] [address] [id number] [address] [place] [address], [place] [address] Mar, [facility] [address] [id number] [address] [place] [address], [place] [address] Feb, [facility] [address] [id number] [address] [place] [address], [place] [address] Jan, [facility] [address] [id number] [address] [place] [address], [place] [address] Jan, [facility] [address] [id number] [address] [place] [address], [place] [address] Jan, [facility] [address] [id number] [address] [place] [address], [place] [address] Dec, [facility] [address] [id number] [address] [place] [id number] Nov, [facility] [address] [id number] [address] [place] [id number] Nov, [facility] [address] [id number] [address] [place] [id number] Nov, [facility] [address] [id number] [address] [place] [id number] Nov, [facility] [address] [id number] [address] [place] [id number] Nov, [facility] [address] [id number] [address] [place] [id number] October, [facility] [address] [id number] [address] [place] [id number] October, [facility] [address] [id number] [address] [place] [id number] October, [facility] [address] [id number] [address] [place] [id number] October, [facility] [address] [id number] [address] [place] [id number] October, IMMUNIZATIONS No Known Immunizations SOCIAL HISTORY [...]
--- OUTSIDE RECORDS SUMMARY | 2020-01-25 07:42 | XMS REPORT ---
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41 Active 914598519 ALLERGIES No Information ENCOUNTERS Encounter Location Date Diagnosis [facility] [address] [facility] [id number] [address] [place] [phone] Mar, [facility] [address] [facility] [id number] [address] [place] [phone] Mar, [facility] [address] [facility] [id number] [address] [place] [phone] Feb, [facility] [address] [facility] [id number] [address] [place] [phone] Feb, Other specified disorders of bone density and structure, unspecified site M85.80 [facility] [address] [id number] [address] [place] [address] Jan, Arthritis M19.90 [facility] [address] [id number] [address] [place] [address] Dec, Arthritis M19.90 [facility] [address] [id number] [address] [place] [phone] Nov, Inflammatory spondylopathy o f sacral region M46.98 [facility] [address] [id number] [address] [place] [phone] Nov, [facility] [address] [facility] [id number] [address] [place] [phone] Nov, Labyrinthitis of left ear H8 3.02 [facility] [address] [facility] [id number] [address] [place] [phone] Nov, Arthritis M19.90 [facility] [address] [id number] [address] [place] [phone] Sep, Arthritis M19.90 [facility] [address] [facility] [id number] [address] [place] [phone] Sep, Renal insufficiency N28.9 an d Unspecified kidney failure N19 [facility] [address] [facility] [id number] [address] [place] [phone] Sep, Renal insufficiency N28.9 an d Unspecified kidney failure N19 [facility] [address] [facility] [id number] [address] [place] [id number] Sep, Arthritis M19.90 [facility] [address] [facility] [id number] [address] [place] [phone] Aug, Exercise counseling Z71.82 [facility] [address] [facility] [id number] [address] [place] [phone] Aug, [facility] [address] [facility] [id number] [address] [place] [id number] 27 Jul, 2018 Labyrinthitis of left ear H8 3.02 [place] [address] [facility] [id number] [address] [place] [phone] 22 Jul, 2018 Labyrinthitis of left ear H8 3.02 [place] [address] [facility] [id number] [address] [place] [phone] 19 Jul, 2018 Exercise counseling Z71.82 [place] [address] [facility] [id number] [address] [place] [phone] 18 Jul, 2018 [place] [address] [place] [id number] [place] [id number] 14 Jul, 2018 Arthritis M19.90 [place] [address] [place] [id number] [place] [phone] 13 Jul, 2018 Encounter for Medicare annua l wellness exam Z00.00 ; Chronic kidney disease, stage 4 (severe) N18.4 ; Body mass index (BMI) of 40.0-44.9 in adult Z68.41 ; Hyperparathyroidism E21.3 and BMI 40.0-44.9, adult Z68.41 [place] [address] [place] [id number] [address] [place] [id number] 13 Jul, 2018 Encounter for Medicare annua l wellness exam Z00.00 ; Chronic kidney disease, stage 4 (severe) N18.4 ; Hyperparathyroidism E21.3 ; Body mass index (BMI) of 40.0-44.9 in adult Z68.41 and Encounter for immunization Z23 [place] [address] [facility] [id number] [address] [place] [phone] 11 Jul, 2018 Tail bone pain M53.3 [place] [address] [facility] [id number] [address] [place] [phone] Jun, Exercise counseling Z71.82 [place] [address] [place] [id number] [address] [place] [phone] Jun, Labyrinthitis of left ear H8 3.02 [facility] [address] [id number] [address] [place] [phone] Jun, Tail bone pain M53.3 ; Irrit able bowel syndrome with both constipation and diarrhea K58.2 and Dysfunction of left eustachian tube H69.82 [facility] [address] [id number] [address] [place] [address] Jun, Exercise counseling Z71.82 [facility] [address] [id number] [address] [place] [phone] Jun, Arthritis M19.90 [facility] [address] [id number] [address] [place] [phone] Jun, Irritable bowel syndrome wit h both constipation and diarrhea K58.2 ; Tail bone pain M53.3 and Dysfunction of left eustachian tube H69.82 [facility] [address] [id number] [address] [place] [address] Jun, Exercise counseling Z71.82 [facility] [address] [id number] [address] [place] [phone] Jun, Exercise counseling Z71.82 [facility] [address] [id number] [address] [place] [phone] Jun, Labyrinthitis of left ear H8 3.02 [facility] [address] [id number] [address] [place] [address] May, Exercise counseling Z71.82 [facility] [address] [id number] [address] [place] [address] May, Arthritis M19.90 [facility] [address] [id number] [address] [place] [address] May, Exercise counseling Z71.82 [facility] [address] [id number] [address] [place] [phone] May, Exercise counseling Z71.82 [facility] [address] [id number] [address] [place] [phone] 06 May, 2018 Labyrinthitis of left ear H8 3.02 [facility] [address] [id number] [address] [place] [id number] 03 May, 2018 Exercise counseling Z71.82 [facility] [address] [id number] [address] [place] [address] Apr, Arthritis M19.90 [facility] [address] [id number] [address] [place] [phone] Apr, Exercise counseling Z71.82 [facility] [address] [id number] [address] [place] [address] Apr, Exercise counseling Z71.82 [facility] [address] [id number] [address] [place] [phone] Apr, Primary osteoarthritis of le ft knee M17.12 [facility] [address] [id number] [address] [place] [id number] 08 Apr, 2018 Labyrinthitis of left ear H8 3.02 [facility] [address] [id number] [address] [place] [id number] 30 Mar, 2018 Arthritis M19.90 [facility] [address] [id number] [address] [place] [id number] 16 Mar, 2018 [facility] [address] [id number] [address] [place] [id number] Mar, Chronic kidney disease, stag e 4 (severe) N18.4 [facility] [address] [id number] [address] [place] [phone] Mar, Chronic kidney disease, stag e 4 (severe) N18.4 [facility] [address] [id number] [address] [place] [id number] 09 Mar, 2018 Labyrinthitis of left ear H8 3.02 [facility] [address] [id number] [address] [place] [phone] Mar, Chronic kidney disease, stag e 4 (severe) N18.4 ; Knee pain, left anterior M25.562 ; 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 and Encounter for immunization Z23 [facility] [address] [facility] [id number] [address] [place] [id number] Mar, Arthritis M19.90 [facility] [address] [place] [id number] [address] [place] [id number] Feb, Labyrinthitis of left ear H8 3.02 [facility] [address] [place] [id number] [address] [place] [id number] Feb, Arthritis M19.90 [facility] [address] [place] [id number] [address] [place] [id number] Jan, Labyrinthitis of left ear H8 3.02 [facility] [address] [place] [id number] [address] [place] [id number] Jan, Arthritis M19.90 [facility] [address] [place] [id number] [address] [place] [phone] Dec, Labyrinthitis of left ear H8 3.02 [facility] [address] [place] [id number] [address] [place] [id number] Nov, Arthritis M19.90 [facility] [address] [place] [id number] [address] [place] [id number] Nov, Labyrinthitis of left ear H8 3.02 [facility] [address] [facility] [id number] [address] [place] [id number] Nov, BMI 40.0-44.9, adult Z68.41 ; Chronic kidney disease, stage 4 (severe) N18.4 and Acute right-sided thoracic back pain M54.6 [facility] [address] [place] [id number] [address] [place] [phone] October, Labyrinthitis of left ear H8 3.02 and Arthritis M19.90 [facility] [address] [facility] [id number] [address] [place] [phone] Sep, BPV (benign positional verti go), bilateral H81.13 ; Dysfunction of left eustachian tube H69.82 and BMI 40.0-44.9, adult Z68.41 [facility] [address] [facility] [id number] [address] [place] [id number] Sep, Labyrinthitis of left ear H8 3.02 and Arthritis M19.90 [facility] [address] [id number] [address] [place] [id number] Sep, [facility] [address] [facility] [id number] [address] [place] [phone] Sep, [facility] [address] [facility] [id number] [address] [place] [phone] Sep, Chronic kidney disease, stag e 4 (severe) N18.4 [facility] [address] [facility] [id number] [address] [place] [phone] Sep, Chronic kidney disease, stag e 4 (severe) N18.4 [facility] [address] [facility] [id number] [address] [place] [phone] Aug, Labyrinthitis of left ear H8 3.02 and Arthritis M19.90 [facility] [address] [facility] [id number] [address] [place] [phone] Aug, [facility] [address] [facility] [id number] [address] [place] [id number] Jul, [facility] [address] [facility] [id number] [address] [place] [phone] Jul, Arthritis M19.90 and Labyrin thitis of left ear H83.02 [facility] [address] [facility] [id number] [address] [place] [phone] Jul, [facility] [address] [place] [id number] [address] [place] [phone] Jun, [place] [address] [facility] [id number] [address] [place] [address] Jun, Arthritis M19.90 and Labyrin thitis of left ear H83.02 [place] [address] [place] [id number] [address] [place] [id number] Jun, Pre-op evaluation Z01.818 ; BMI 40.0-44.9, adult Z68.41 and Encounter for immunization Z23 [place] [address] [place] [id number] [address] [place] [id number] May, Arthritis M19.90 and Labyrin thitis of left ear H83.02 [place] [address] [place] [id number] [place] [address] Apr, Labyrinthitis of left ear H8 3.02 [place] [address] [address] Apr, Arthritis M19.90 and Labyrin thitis of left ear H83.02 [place] [address] [place] [id number] [address] [place] [address] Mar, Arthritis M19.90 and Labyrin thitis of left ear H83.02 [place] [address] [place] [id number] [address] [place] [address] Mar, Chronic kidney disease, stag e 4 (severe) N18.4 [place] [address] [place] [id number] [address] [place] [phone] Feb, Arthritis M19.90 and Labyrin thitis of left ear H83.02 [place] [address] [place] [id number] [address] [place] [phone] Jan, Labyrinthitis of left ear H8 3.02 and 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 [place] [address] [place] [id number] [address] [place] [address] Dec, Arthritis M19.90 [facility] [address] [facility] [id number] [address] [place] [address] Dec, BPV (benign positional verti go), bilateral H81.13 [facility] [address] [facility] [id number] [address] [place] [phone] Dec, [facility] [address] [facility] [id number] [address] [place] [phone] Dec, [facility] [address] [facility] [id number] [address] [place] [phone] Dec, [facility] [address] [facility] [id number] [address] [place] [address] Nov, Arthritis M19.90 and Deficie ncy 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 [facility] [address] [facility] [id number] [address] [place] [address] Nov, Arthritis M19.90 [facility] [address] [facility] [id number] [address] [place] [id number] Nov, Hyperparathyroidism E21.3 [facility] [address] [facility] [id number] [address] [place] [phone] October, [facility] [address] [facility] [id number] [address] [place] [phone] October, Hyperparathyroidism E21.3 [facility] [address] [facility] [id number] [address] [place] [phone] October, [facility] [address] [facility] [id number] [address] [place] [phone] October, Renal insufficiency N28.9 an d Hyperparathyroidism E21.3 [facility] [address] [facility] [id number] [address] [place] [address] October, [facility] [address] [facility] [id number] [address] [place] [address] October, Renal insufficiency N28.9 an d Hyperparathyroidism E21.3 [facility] [address] [facility] [id number] [address] [place] [address] October, Arthritis M19.90 [facility] [address] [facility] [id number] [address] [place] [phone] Sep, [facility] [address] [facility] [id number] [address] [place] [address] Sep, Lumbar neuritis M54.16 ; Tho racic abscess J86.9 and 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 [facility] [address] [id number] [address] [place] [phone] Sep, [facility] [address] [facility] [id number] [address] [place] [phone] Aug, Arthritis M19.90 [facility] [address] [facility] [id number] [address] [place] [phone] Aug, Hyperparathyroidism E21.3 [facility] [address] [facility] [id number] [address] [place] [phone] Aug, Hyperparathyroidism E21.3 [facility] [address] [facility] [id number] [address] [place] [address] Aug, Arthritis M19.90 [facility] [address] [facility] [id number] [address] [place] [phone] Jul, Mass of throat R22.1 [facility] [address] [facility] [id number] [address] [place] [address] Jul, [facility] [address] [facility] [id number] [address] [place] [address] Jul, Arthritis M19.90 [facility] [address] [facility] [id number] [address] [place] [address] Jun, Arthritis M19.90 [facility] [address] [facility] [id number] [address] [place] [address] Jun, [facility] [address] [facility] [id number] [address] [place] [phone] 09 Jun, 2016 Renal insufficiency N28.9 an d 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 [facility] [address] [facility] [id number] [address] [place] [phone] 05 Jun, 2016 Medicare welcome exam Z00.00 ; Encounter for immunization Z23 ; Arthritis M19.90 ; Medicare annual wellness visit, initial Z00.00 ; Medicare annual wellness visit, subsequent Z00.00 and 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 [facility] [address] [facility] [id number] [address] [place] [phone] 29 May, 2016 Renal insufficiency N28.9 an d 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 [facility] [address] [facility] [id number] [address] [place] [phone] 19 May, 2016 Renal insufficiency N28.9 [facility] [address] [facility] [id number] [address] [place] [phone] May, Renal insufficiency N28.9 [facility] [address] [facility] [id number] [address] [place] [phone] May, [facility] [address] [place] [id number] [address] [place] [phone] Apr, [facility] [address] [place] [id number] [address] [place] [id number] Apr, [facility] [address] [facility] [id number] [address] [place] [phone] Apr, Mass of throat R22.1 [facility] [address] [facility] [id number] [address] [place] [phone] 10 Apr, 2016 [facility] [address] [place] [id number] [address] [place] [id number] 10 Apr, 2016 Mass of throat R22.1 [facility] [address] [facility] [id number] [address] [place] [phone] 04 Apr, 2016 Mass of throat R22.1 [facility] [address] [id number] [address] [place] [phone] Mar, [facility] [address] [id number] [address] [place] [phone] Mar, [facility] [address] [id number] [address] [place] [phone] Mar, [facility] [address] [id number] [address] [place] [id number] Mar, Parathyroid abnormality E21. 5 and Encounter for immunization Z23 [facility] [address] [id number] [address] [place] [id number] Mar, [facility] [address] [id number] [address] [place] [phone] Mar, [facility] [address] [facility] [id number] [address] [place] [phone] 21 Feb, 2016 Renal insufficiency N28.9 an d Hyperparathyroidism E21.3 [facility] [address] [facility] [id number] [address] [place] [id number] 19 Feb, 2016 [facility] [address] [id number] [address] [place] [id number] 15 Feb, 2016 Renal insufficiency N28.9 an d Hyperparathyroidism E21.3 [facility] [address] [facility] [id number] [address] [place] [id number] 14 Feb, 2016 [facility] [address] [facility] [id number] [address] [place] [phone] 12 Feb, 2016 [facility] [address] [id number] [address] [place] [phone] 09 Feb, 2016 [facility] [address] [facility] [id number] [address] [place] [phone] Jan, [facility] [address] [facility] [id number] [address] [place] [phone] Jan, Arthritis M19.90 ; Lumbago w ith sciatica, right side M54.41 and Other chronic pain G89.29 [facility] [address] [id number] [address] [place] [id number] Jan, [facility] [address] [facility] [id number] [address] [place] [phone] Dec, Arthritis M19.90 ; Lumbago w ith sciatica, right side M54.41 and Other chronic pain G89.29 [facility] [address] [facility] [id number] [address] [place] [phone] Nov, Deficiency of other specifie d B group vitamins E53.8 ; Primary insomnia F51.01 ; Mood disorder F39 and Lumbago with sciatica, right side M54.41 [place] [address] [address] [facility] [id number] [address] [place] [address] Nov, Hyperparathyroidism E21.3 [place] [address] [address] [facility] [id number] [address] [place] [phone] Nov, Unspecified kidney failure N 19 and Hyperparathyroidism E21.3 [place] [address] [address] [facility] [id number] [address] [place] [address] October, Hyperparathyroidism E21.3 [place] [address] [address] [facility] [id number] [address] [place] [address] October, [place] [address] [address] [facility] [id number] [address] [place] [phone] October, Hyperparathyroidism E21.3 [place] [address] [address] [facility] [id number] [address] [place] [address] October, Hyperparathyroidism E21.3 [place] [address] [address] [facility] [id number] [address] [place] [id number] Sep, Hyperparathyroidism E21.3 ; Hypercholesterolemia E78.0 and Arthritis M19.90 [facility] [address] [facility] [id number] [address] [place] [phone] Aug, [place] [address] [address] [facility] [id number] [address] [place] [phone] Aug, Deficiency of other specifie d B group vitamins E53.8 [facility] [address] [facility] [id number] [address] [place] [phone] Aug, [facility] [address] [facility] [id number] [address] [place] [address] Jul, Urinary frequency R35.0 [facility] [address] [facility] [id number] [address] [place] [address] Jul, Urinary frequency R35.0 [facility] [address] [facility] [id number] [address] [place] [phone] Jul, [facility] [address] [facility] [id number] [address] [place] [phone] Jul, [facility] [address] [facility] [id number] [address] [place] [address] Jun, Pain in left knee M25.562 [facility] [address] [facility] [id number] [address] [place] [phone] Jun, [facility] [address] [facility] [id number] [address] [place] [address] May, Swelling of left knee joint M25.462 [facility] [address] [facility] [id number] [address] [place] [address] 16 May, 2015 [facility] [address] [facility] [id number] [address] [place] [phone] May, [facility] [address] [facility] [id number] [address] [place] [phone] May, [facility] [address] [facility] [id number] [address] [place] [address] Apr, Renal insufficiency N28.9 an d Chronic kidney disease, stage 4 (severe) N18.4 [facility] [address] [facility] [id number] [address] [place] [phone] Apr, Unspecified kidney failure N 19 [facility] [address] [id number] [address] [place] [address] Apr, Unspecified kidney failure N 19 [facility] [address] [id number] [address] [place] [address] Apr, [facility] [address] [id number] [address] [place] [id number] Apr, Hyperparathyroidism, unspeci fied 252.00 [facility] [address] [id number] [address] [place] [address] Apr, [facility] [address] [id number] [address] [place] [address] Mar, [facility] [address] [id number] [address] [place] [address] Mar, [facility] [address] [id number] [address] [place] [id number] Mar, Hyperparathyroidism, unspeci fied 252.00 [facility] [address] [id number] [address] [place] [id number] Feb, [facility] [address] [id number] [address] [place] [address] Feb, Otalgia 388.70 [facility] [address] [id number] [address] [place] [phone] Feb, [facility] [address] [id number] [address] [place] [phone] Feb, [facility] [address] [id number] [address] [place] [address] Jan, [facility] [address] [id number] [address] [place] [phone] Jan, Hyperparathyroidism, unspeci fied 252.00 [facility] [address] [id number] [address] [place] [address] Jan, [facility] [address] [id number] [address] [place] [phone] Jan, Other B-complex deficiencies 266.2 and Hyperparathyroidism, unspecified 252.00 [facility] [address] [id number] [address] [place] [id number] Jan, [facility] [address] [id number] [address] [place] [phone] Jan, [facility] [address] [id number] [address] [place] [phone] Jan, [facility] [address] [id number] [address] [place] [address] Dec, [facility] [address] [id number] [address] [place] [id number] Dec, [facility] [address] [id number] [address] [place] [id number] Dec, [facility] [address] [id number] [address] [place] [id number] Nov, Routine check-up V70.0 and P re-op exam V72.84 [facility] [address] [id number] [address] [place] [phone] Nov, [facility] [address] [id number] [address] [place] [phone] Nov, [facility] [address] [id number] [address] [place] [phone] October, [facility] [address] [id number] [address] [place] [phone] October, Other B-complex deficiencies 266.2 [facility] [address] [id number] [address] [place] [id number] October, [facility] [address] [id number] [address] [place] [id number] Sep, [facility] [address] [id number] [address] [place] [id number] Sep, [facility] [address] [id number] [address] [place] [address], [place] [address] Aug, [facility] [address] [id number] [address] [place] [address], [place] [address] 20 Aug, 2014 [facility] [address] [id number] [address] [place] [address], [place] [address] 17 Aug, 2014 [facility] [address] [id number] [address] [place] [address], [place] [address] 17 Aug, 2014 [facility] [address] [id number] [address] [place] [address], [place] [address] Aug, [facility] [address] [id number] [address] [place] [address], [place] [address] Aug, [facility] [address] [id number] [address] [place] [address], [place] [address] 18 Jul, 2014 [facility] [address] [id number] [address] [place] [address], [place] [address] 18 Jul, 2014 [facility] [address] [id number] [address] [place] [address], [place] [address] 17 Jul, 2014 [facility] [address] [id number] [address] [place] [address], [place] [address] 17 Jul, 2014 [facility] [address] [id number] [address] [place] [address], [place] [address] 12 Jul, 2014 [facility] [address] [id number] [address] [place] [address], [place] [address] Jul, 2014 [facility] [address] [id number] [address] [place] [address], [place] [address] 10 Jul, 2014 [facility] [address] [id number] [address] [place] [address], [place] [address] 10 Jul, 2014 [facility] [address] [id number] [address] [place] [address], [place] [address] 09 Jul, 2014 [facility] [address] [id number] [address] [place] [address], [place] [address] Jul, [facility] [address] [id number] [address] [place] [address], [place] [address] Jul, [facility] [address] [id number] [address] [place] [address], [place] [address] Jul, 2014 [facility] [address] [id number] [address] [place] [address], [place] [address] Jul, [facility] [address] [id number] [address] [place] [address], [place] [address] Jul, [facility] [address] [id number] [address] [place] [address], [place] [address] Jun, [facility] [address] [id number] [address] [place] [address], [place] [address] Jun, [facility] [address] [id number] [address] [place] [address], [place] [address] Jun, [facility] [address] [id number] [address] [place] [address], [place] [address] Jun, [facility] [address] [id number] [address] [place] [address], [place] [address] Jun, [facility] [address] [id number] [address] [place] [address], [place] [address] Jun, [facility] [address] [id number] [address] [place] [address], [place] [address] Jun, [facility] [address] [id number] [address] [place] [address], [place] [address] Jun, [facility] [address] [id number] [address] [place] [address], [place] [address] Jun, [facility] [address] [id number] [address] [place] [address], [place] [address] Jun, [facility] [address] [id number] [address] [place] [address], [place] [address] Jun, [facility] [address] [id number] [address] [place] [address], [place] [address] Jun, [facility] [address] [id number] [address] [place] [address], [place] [address] Jun, [facility] [address] [id number] [address] [place] [address], [place] [address] Jun, [facility] [address] [id number] [address] [place] [address], [place] [address] May, [facility] [address] [id number] [address] [place] [address], [place] [address] May, [facility] [address] [id number] [address] [place] [address], [place] [address] May, [facility] [address] [id number] [address] [place] [address], [place] [address] May, [facility] [address] [id number] [address] [place] [address], [place] [address] Apr, [facility] [address] [id number] [address] [place] [address], [place] [address] Apr, [facility] [address] [id number] [address] [place] [address], [place] [address] Apr, [facility] [address] [id number] [address] [place] [address], [place] [address] Apr, [facility] [address] [id number] [address] [place] [address], [place] [address] Apr, [facility] [address] [id number] [address] [place] [address], [place] [address] Apr, [facility] [address] [id number] [address] [place] [address], [place] [address] Mar, [facility] [address] [id number] [address] [place] [address], [place] [address] Mar, [facility] [address] [id number] [address] [place] [address] [place] [address] 22 Mar, 2013 [facility] [address] [id number] [address] [place] [address], [place] [address] 22 Mar, 2014 [facility] [address] [id number] [address] [place] [address], [place] [address] 15 Mar, 2014 [facility] [address] [id number] [address] [place] [address], [place] [address] 15 Mar, 2014 [facility] [address] [id number] [address] [place] [address], [place] [address] 13 Mar, 2014 [facility] [address] [id number] [address] [place] [address], [place] [address] 13 Mar, 2014 [facility] [address] [id number] [address] [place] [address], [place] [address] 07 Mar, 2013 [facility] [address] [id number] [address] [place] [address], [place] [address] 07 Mar, 2013 [facility] [address] [id number] [address] [place] [address], [place] [address] 07 Mar, 2013 [facility] [address] [id number] [address] [place] [address], [place] [address] 07 Mar, 2013 [facility] [address] [id number] [address] [place] [address], [place] [address] 06 Mar, 2013 [facility] [address] [id number] [address] [place] [address], [place] [address] 26 Feb, 2013 [facility] [address] [id number] [address] [place] [address], [place] [address] 26 Sep, 2013 [facility] [address] [id number] [address] [place] [address], [place] [address] 23 Feb, 2013 [facility] [address] [id number] [address] [place] [address], [place] [address] 23 Feb, 2013 [facility] [address] [id number] [address] [place] [address], [place] [address] 19 Feb, 2013 [facility] [address] [id number] [facility] [place] [address] 19 Feb, 2013 [facility] [address] [id number] [facility] [place] [address] 13 Feb, 2014 [facility] [address] [id number] [address] [place] [address], [place] [address] 13 Feb, 2014 [facility] [address] [id number] [address] [place] [address], [place] [address] 12 Feb, 2014 [facility] [address] [id number] [address] [place] [address], [place] [address] 12 Feb, 2014 [facility] [address] [id number] [address] [place] [address], [place] [address] Jan, [facility] [address] [id number] [address] [place] [address], [place] [address] Jan, [facility] [address] [id number] [address] [place] [address], [place] [address] Dec, [facility] [address] [id number] [address] [place] [address], [place] [address] Dec, [facility] [address] [id number] [address] [place] [address], [place] [address] Dec, [facility] [address] [id number] [address] [place] [address], [place] [address] Dec, [facility] [address] [id number] [address] [place] [address], [place] [address] Dec, [facility] [address] [id number] [address] [place] [address], [place] [address] Dec, [facility] [address] [id number] [address] [place] [address], [place] [address] Nov, [facility] [address] [id number] [address] [place] [address], [place] [address] Nov, [facility] [address] [id number] [address] [place] [address], [place] [address] Nov, [facility] [address] [id number] [facility] [place] [address] Nov, [facility] [address] [id number] [facility] [place] [address] October, [facility] [address] [id number] [facility] [place] [address] October, [facility] [address] [id number] [address] [place] [address], [place] [address] October, [facility] [address] [id number] [facility] [place] [address] October, [facility] [address] [id number] [address] [place] [address], [place] [address] October, [facility] [address] [id number] [address] [place] [address], [place] [address] October, [facility] [address] [id number] [address] [place] [address], [place] [address] October, [facility] [address] [id number] [address] [place] [address], [place] [address] October, [facility] [address] [id number] [address] [place] [address], [place] [address] October, [facility] [address] [id number] [address] [place] [address], [place] [address] October, [facility] [address] [id number] [address] [place] [address], [place] [address] October, [facility] [address] [id number] [address] [place] [address], [place] [address] October, [facility] [address] [id number] [address] [place] [address], [place] [address] October, [facility] [address] [id number] [address] [place] [address], [place] [address] October, [facility] [address] [id number] [facility] [place] [address] October, [facility] [address] [id number] [address] [place] [address], [place] [address] October, [facility] [address] [id number] [facility] [place] [address] Sep, [facility] [address] [id number] [address] [place] [address], [place] [address] Sep, [facility] [address] [id number] [address] [place] [address], [place] [address] Sep, [facility] [address] [id number] [address] [place] [address], [place] [address] Sep, [facility] [address] [id number] [address] [place] [address], [place] [address] Sep, [facility] [address] [id number] [address] [place] [address], [place] [address] Sep, [facility] [address] [id number] [address] [place] [address], [place] [address] Aug, [facility] [address] [id number] [address] [place] [address], [place] [address] Aug, [facility] [address] [id number] [address] [place] [address], [place] [address] Aug, [facility] [address] [id number] [address] [place] [address], [place] [address] Aug, [facility] [address] [id number] [address] [place] [address], [place] [address] Aug, [facility] [address] [id number] [address] [place] [address], [place] [address] Aug, [facility] [address] [id number] [address] [place] [address], [place] [address] Jul, [facility] [address] [id number] [address] [place] [address], [place] [address] Jul, [facility] [address] [id number] [address] [place] [address], [place] [address] Jul, [facility] [address] [id number] [address] [place] [address], [place] [address] Jul, [facility] [address] [id number] [address] [place] [address], [place] [address] Jun, [facility] [address] [id number] [address] [place] [address], [place] [address] Jun, [facility] [address] [id number] [address] [place] [address], [place] [address] May, [facility] [address] [id number] [address] [place] [address], [place] [address] May, [facility] [address] [id number] [address] [place] [address], [place] [address] May, [facility] [address] [id number] [address] [place] [address], [place] [address] May, [facility] [address] [id number] [address] [place] [address], [place] [address] May, [facility] [address] [id number] [address] [place] [address], [place] [address] Apr, [facility] [address] [id number] [address] [place] [address], [place] [address] Apr, [facility] [address] [id number] [address] [place] [address], [place] [address] Apr, [facility] [address] [id number] [address] [place] [address], [place] [address] Apr, [facility] [address] [id number] [address] [place] [address], [place] [address] Apr, [facility] [address] [id number] [address] [place] [address], [place] [address] Apr, [facility] [address] [id number] [address] [place] [address] [place] [address] 15 Mar, 2013 [facility] [address] [id number] [address] [place] [address], [place] [address] 15 Mar, 2013 [facility] [address] [id number] [address] [place] [address], [place] [address] 14 Mar, 2013 [facility] [address] [id number] [address] [place] [address], [place] [address] 14 Mar, 2013 [facility] [address] [id number] [address] [place] [address], [place] [address] 11 Mar, 2013 [facility] [address] [id number] [address] [place] [address], [place] [address] 11 Mar, 2013 [facility] [address] [id number] [address] [place] [address], [place] [address] 23 Feb, 2013 [facility] [address] [id number] [address] [place] [address], [place] [address] 19 Feb, 2013 [facility] [address] [id number] [address] [place] [address], [place] [address] 04 Feb, 2013 [facility] [address] [id number] [address] [place] [address], [place] [address] 30 Jan, 2013 [facility] [address] [id number] [address] [place] [address], [place] [address] Jan, [facility] [address] [id number] [address] [place] [address], [place] [address] Jan, [facility] [address] [id number] [address] [place] [address], [place] [address] 16 Jan, 2013 [facility] [address] [id number] [address] [place] [address], [place] [address] Jan, [facility] [address] [id number] [address] [place] [address], [place] [address] Jan, [facility] [address] [id number] [address] [place] [address], [place] [address] Dec, [facility] [address] [id number] [address] [place] [address], [place] [address] Dec, [facility] [address] [id number] [address] [place] [address], [place] [address] Dec, [facility] [address] [id number] [address] [place] [address], [place] [address] Dec, [facility] [address] [id number] [address] [place] [address], [place] [address] Dec, [facility] [address] [id number] [address] [place] [address], [place] [address] Dec, [facility] [address] [id number] [address] [place] [address], [place] [address] Nov, [facility] [address] [id number] [address] [place], [place] [address], [place] [address] Nov, [facility] [address] [id number] [address] [place] [address], [place] [address] Nov, [facility] [address] [id number] [address] [place] [address], [place] [address] Nov, [facility] [address] [id number] [address] [place] [address], [place] [address] Nov, [facility] [address] [id number] [address] [place] [address], [place] [address] Nov, [facility] [address] [id number] [address] [place] [address], [place] [address] October, [facility] [address] [id number] [address] [place] [address], [place] [address] October, [facility] [address] [id number] [address] [place] [address], [place] [address] October, [facility] [address] [id number] [address] [place] [address], [place] [address] October, [facility] [address] [id number] [address] [place] [address], [place] [address] October, [facility] [address] [id number] [address] [place] [address], [place] [address] 30 Sep, 2012 [facility] [address] [id number] [address] [place] [address], [place] [address] 23 Sep, 2012 [facility] [address] [id number] [address] [place] [address], [place] [address] Sep, [facility] [address] [id number] [address] [place] [address], [place] [address] 18 Sep, 2012 [facility] [address] [id number] [address] [place] [address], [place] [address] Sep, [facility] [address] [id number] [address] [place] [address], [place] [address] Aug, [facility] [address] [id number] [address] [place] [address], [place] [address] Aug, [facility] [address] [id number] [address] [place] [address], [place] [address] 04 Aug, 2012 [facility] [address] [id number] [address] [place] [address], [place] [address] Jul, [facility] [address] [id number] [address] [place] [address], [place] [address] Jul, [facility] [address] [id number] [address] [place] [address], [place] [address] Jul, [facility] [address] [id number] [address] [place] [address], [place] [address] 08 Jul, 2012 [facility] [address] [id number] [address] [place] [address], [place] [address] 06 Jul, 2012 [facility] [address] [id number] [address] [place] [address], [place] [address] 05 Jul, 2012 [facility] [address] [id number] [address] [place] [address], [place] [id number] 15 Jun, 2012 [facility] [address] [id number] [address] [place] [address], [place] [address] 16 Apr, 2012 [facility] [address] [id number] [address] [place] [address], [place] [address] Apr, [facility] [address] [id number] [address] [place] [address], [place] [address] Apr, [facility] [address] [id number] [address] [place] [address], [place] [address] Apr, [facility] [address] [id number] [address] [place] [address], [place] [address] Mar, [facility] [address] [id number] [address] [place] [address], [place] [address] Mar, [facility] [address] [id number] [address] [place] [address], [place] [address] Mar, [facility] [address] [id number] [address] [place] [address], [place] [address] Mar, [facility] [address] [id number] [address] [place] [address], [place] [address] Mar, [facility] [address] [id number] [address] [place] [address], [place] [address] Feb, [facility] [address] [id number] [address] [place] [address], [place] [address] Jan, [facility] [address] [id number] [address] [place] [address], [place] [address] Jan, [facility] [address] [id number] [address] [place] [address], [place] [address] Jan, [facility] [address] [id number] [address] [place] [address], [place] [address] Dec, [facility] [address] [id number] [address] [place] [address], [place] [address] Nov, [facility] [address] [id number] [address] [place] [address], [place] [address] Nov, [facility] [address] [id number] [address] [place] [id number] Nov, [facility] [address] [id number] [address] [place] [id number] Nov, [facility] [address] [facility] [id number] [address] [place] [id number] Nov, [facility] [address] [id number] [address] [place] [id number] October, [facility] [address] [facility] [id number] [address] [place] [id number] October, [facility] [address] [facility] [id number] [address] [place] [id number] October, [facility] [address] [facility] [id number] [address] [place] [id number] October, [facility] [address] [facility] [id number] [address] [place] [id number] October, IMMUNIZATIONS No Known Immunizations SOCIAL HISTORY Never Assessed REASON FOR VISIT PLAN OF CARE VITAL SIGNS MEDICATIONS Unknown Medications RESULTS No Results PROCEDURES No Known procedures INSTRUCTIONS MEDICATIONS ADMINISTERED No Known Medications MEDICAL (GENERAL) HISTORY Type Description Date Medical History hypertension Medical History acid reflux Medical History osteoporosis Medical History Arthritis Medical History fibromyalgia Surgical History cholecystectomy 1969's Surgical History gastric bypass Surgical History orthopedic surgery-left and right foot Surgical History arthroscopic knee surgery-left Surgical History Left knee meniscus repair 2009 Surgical History half of thyroid removed Jun 2016 Hospitalization History Hospitalization for surgery only
--- OUTSIDE RECORDS SUMMARY | 2020-01-25 07:43 | XMS REPORT ---
Author Author Velma CORDERO Organization [facility] Address [address] [place] [address] Care Team Providers Care Steward/Stewardess Second Class Name Role Phone STEPHAN CORDERO Unavailable PROBLEMS Type Condition ICD9-CM Code CMF58-UH Code Onset Dates Condition S tatus SNOMED Code Problem Primary insomnia F51.01 Active 397 2004 Problem Hypercholesteremia E78.0 Active 1 7453982 Problem Corns L84 Active 609919339 Problem Arthritis M19.90 Active 2241630 Problem Hyperparathyroidism E21.3 Active 59596063 Problem 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 Active 83655650 Problem 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 Active 11883521 Problem BPV (benign positional vertigo), bilateral H81.13 Active 381875469 Problem Unspecified kidney failure N19 Act chip 49655805 Problem Myalgia M79.1 Active 87820687 Problem 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 Active 719139341 Problem Mood disorder F39 Active 568454 05 Problem Chronic kidney disease, stage 4 (severe) N18.4 Active 862307174 Problem Primary osteoarthritis of left knee M17.12 Active [id number] Problem Irritable bowel syndrome with both constipation and diarrh ea K58.2 Active 60277357 Problem Body mass index (BMI) of 40.0-44.9 in adult Z68.41 Active 083312903 ALLERGIES No Information ENCOUNTERS Encounter Location Date Diagnosis [facility] [address] [facility] [id number] [address] [place] [phone] Mar, [facility] [address] [facility] [id number] [address] [place] [address] Mar, [facility] [address] [facility] [id number] [address] [place] [phone] Feb, [facility] [address] [facility] [id number] [address] [place] [address] Feb, Other specified disorders of bone density and structure, unspecified site M85.80 [facility] [address] [id number] [address] [place] [address] Jan, Arthritis M19.90 [facility] [address] [id number] [address] [place] [address] Dec, Arthritis M19.90 [facility] [address] [id number] [address] [place] [address] Nov, Inflammatory spondylopathy o f sacral region M46.98 [facility] [address] [id number] [address] [place] [phone] Nov, [facility] [address] [facility] [id number] [address] [place] [phone] Nov, Labyrinthitis of left ear H8 3.02 [facility] [address] [facility] [id number] [address] [place] [address] Nov, Arthritis M19.90 [facility] [address] [id number] [address] [place] [address] Sep, Arthritis M19.90 [facility] [address] [facility] [id number] [address] [place] [phone] Sep, Renal insufficiency N28.9 an d Unspecified kidney failure N19 [facility] [address] [facility] [id number] [address] [place] [phone] Sep, Renal insufficiency N28.9 an d Unspecified kidney failure N19 [facility] [address] [facility] [id number] [address] [place] [address] Sep, Arthritis M19.90 [facility] [address] [facility] [id number] [address] [place] [address] Aug, Exercise counseling Z71.82 [facility] [address] [facility] [id number] [address] [place] [phone] Aug, [facility] [address] [facility] [id number] [address] [place] [id number] 27 Jul, 2018 Labyrinthitis of left ear H8 3.02 [place] [address] [facility] [id number] [address] [place] [phone] 22 Jul, 2018 Labyrinthitis of left ear H8 3.02 [place] [address] [facility] [id number] [address] [place] [address] 19 Jul, 2018 Exercise counseling Z71.82 [place] [address] [facility] [id number] [address] [place] [phone] 18 Jul, 2018 [place] [address] [place] [id number] [place] [address] 14 Jul, 2018 Arthritis M19.90 [place] [address] [place] [id number] [place] [phone] 13 Jul, 2018 Encounter for Medicare annua l wellness exam Z00.00 ; Chronic kidney disease, stage 4 (severe) N18.4 ; Body mass index (BMI) of 40.0-44.9 in adult Z68.41 ; Hyperparathyroidism E21.3 and BMI 40.0-44.9, adult Z68.41 [place] [address] [place] [id number] [address] [place] [phone] 13 Jul, 2018 Encounter for Medicare annua l wellness exam Z00.00 ; Chronic kidney disease, stage 4 (severe) N18.4 ; Hyperparathyroidism E21.3 ; Body mass index (BMI) of 40.0-44.9 in adult Z68.41 and Encounter for immunization Z23 [place] [address] [facility] [id number] [address] [place] [phone] 11 Jul, 2018 Tail bone pain M53.3 [place] [address] [facility] [id number] [address] [place] [phone] Jun, Exercise counseling Z71.82 [place] [address] [place] [id number] [address] [place] [address] Jun, Labyrinthitis of left ear H8 3.02 [facility] [address] [id number] [address] [place] [address] Jun, Tail bone pain M53.3 ; Irrit able bowel syndrome with both constipation and diarrhea K58.2 and Dysfunction of left eustachian tube H69.82 [facility] [address] [id number] [address] [place] [address] Jun, Exercise counseling Z71.82 [facility] [address] [id number] [address] [place] [address] Jun, Arthritis M19.90 [facility] [address] [id number] [address] [place] [address] Jun, Irritable bowel syndrome wit h both constipation and diarrhea K58.2 ; Tail bone pain M53.3 and Dysfunction of left eustachian tube H69.82 [facility] [address] [id number] [address] [place] [address] Jun, Exercise counseling Z71.82 [facility] [address] [id number] [address] [place] [address] Jun, Exercise counseling Z71.82 [facility] [address] [id number] [address] [place] [address] Jun, Labyrinthitis of left ear H8 3.02 [facility] [address] [id number] [address] [place] [address] May, Exercise counseling Z71.82 [facility] [address] [id number] [address] [place] [phone] May, Arthritis M19.90 [facility] [address] [id number] [address] [place] [address] May, Exercise counseling Z71.82 [facility] [address] [id number] [address] [place] [address] May, Exercise counseling Z71.82 [facility] [address] [id number] [address] [place] [phone] 06 May, 2018 Labyrinthitis of left ear H8 3.02 [facility] [address] [id number] [address] [place] [address] 03 May, [address] [facility] [address] [id number] [address] [place] [address] Apr, Arthritis M19.90 [facility] [address] [id number] [address] [place] [phone] Apr, Exercise counseling Z71.82 [facility] [address] [id number] [address] [place] [address] Apr, Exercise counseling Z71.82 [facility] [address] [id number] [address] [place] [address] Apr, Primary osteoarthritis of le ft knee M17.12 [facility] [address] [id number] [address] [place] [id number] 08 Apr, 2018 Labyrinthitis of left ear H8 3.02 [facility] [address] [id number] [address] [place] [phone] 30 Mar, [address] [facility] [address] [id number] [address] [place] [id number] 16 Mar, 2018 [facility] [address] [id number] [address] [place] [phone] Mar, Chronic kidney disease, stag e 4 (severe) N18.4 [facility] [address] [id number] [address] [place] [address] Mar, Chronic kidney disease, stag e 4 (severe) N18.4 [facility] [address] [id number] [address] [place] [phone] 09 Mar, 2018 Labyrinthitis of left ear H8 3.02 [facility] [address] [id number] [address] [place] [phone] Mar, Chronic kidney disease, stag e 4 (severe) N18.4 ; Knee pain, left anterior M25.562 ; 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 and Encounter for immunization Z23 [facility] [address] [facility] [id number] [address] [place] [address] Mar, Arthritis M19.90 [facility] [address] [place] [id number] [address] [place] [phone] Feb, Labyrinthitis of left ear H8 3.02 [facility] [address] [place] [id number] [address] [place] [address] Feb, Arthritis M19.90 [facility] [address] [place] [id number] [address] [place] [address] Jan, Labyrinthitis of left ear H8 3.02 [facility] [address] [place] [id number] [address] [place] [address] Jan, Arthritis M19.90 [facility] [address] [place] [id number] [address] [place] [phone] Dec, Labyrinthitis of left ear H8 3.02 [facility] [address] [place] [id number] [address] [place] [address] Nov, Arthritis M19.90 [facility] [address] [place] [id number] [address] [place] [phone] Nov, Labyrinthitis of left ear H8 3.02 [facility] [address] [facility] [id number] [address] [place] [address] Nov, BMI 40.0-44.9, adult Z68.41 ; Chronic kidney disease, stage 4 (severe) N18.4 and Acute right-sided thoracic back pain M54.6 [facility] [address] [place] [id number] [address] [place] [phone] October, Labyrinthitis of left ear H8 3.[address] [facility] [address] [facility] [id number] [address] [place] [address] Sep, BPV (benign positional verti go), bilateral H81.13 ; Dysfunction of left eustachian tube H69.82 and BMI 40.0-44.9, adult Z68.41 [facility] [address] [facility] [id number] [address] [place] [address] Sep, Labyrinthitis of left ear H8 3.[address] [facility] [address] [id number] [address] [place] [phone] Sep, [facility] [address] [facility] [id number] [address] [place] [phone] Sep, [facility] [address] [facility] [id number] [address] [place] [address] Sep, Chronic kidney disease, stag e 4 (severe) N18.4 [facility] [address] [facility] [id number] [address] [place] [address] Sep, Chronic kidney disease, stag e 4 (severe) N18.4 [facility] [address] [facility] [id number] [address] [place] [address] Aug, Labyrinthitis of left ear H8 3.[address] [facility] [address] [facility] [id number] [address] [place] [phone] Aug, [facility] [address] [facility] [id number] [address] [place] [address] Jul, [facility] [address] [facility] [id number] [address] [place] [address] Jul, Arthritis M19.90 and Labyrin thitis of left ear H83.02 [facility] [address] [facility] [id number] [address] [place] [address] Jul, [facility] [address] [place] [id number] [address] [place] [phone] Jun, [place] [address] [facility] [id number] [address] [place] [address] Jun, Arthritis M19.90 and Labyrin thitis of left ear H83.02 [place] [address] [place] [id number] [address] [place] [address] Jun, Pre-op evaluation Z01.818 ; BMI 40.0-44.9, adult Z68.41 and Encounter for immunization Z23 [place] [address] [place] [id number] [address] [place] [address] May, Arthritis M19.90 and Labyrin thitis of left ear H83.02 [place] [address] [place] [id number] [place] [address] Apr, Labyrinthitis of left ear H8 3.02 [place] [address] [address] Apr, Arthritis M19.90 and Labyrin thitis of left ear H83.02 [place] [address] [place] [id number] [address] [place] [address] Mar, Arthritis M19.90 and Labyrin thitis of left ear H83.02 [place] [address] [place] [id number] [address] [place] [address] Mar, Chronic kidney disease, stag e 4 (severe) N18.4 [place] [address] [place] [id number] [address] [place] [address] Feb, Arthritis M19.90 and Labyrin thitis of left ear H83.02 [place] [address] [place] [id number] [address] [place] [address] Jan, Labyrinthitis of left ear H8 3.02 and 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 [place] [address] [place] [id number] [address] [place] [address] Dec, Arthritis M19.90 [facility] [address] [facility] [id number] [address] [place] [address] Dec, BPV (benign positional verti go), bilateral H81.13 [facility] [address] [facility] [id number] [address] [place] [address] Dec, [facility] [address] [facility] [id number] [address] [place] [address] Dec, [facility] [address] [facility] [id number] [address] [place] [address] Dec, [facility] [address] [facility] [id number] [address] [place] [address] Nov, Arthritis M19.90 and Deficie ncy 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 [facility] [address] [facility] [id number] [address] [place] [address] Nov, Arthritis M19.90 [facility] [address] [facility] [id number] [address] [place] [address] Nov, Hyperparathyroidism E21.3 [facility] [address] [facility] [id number] [address] [place] [address] October, [facility] [address] [facility] [id number] [address] [place] [address] October, Hyperparathyroidism E21.3 [facility] [address] [facility] [id number] [address] [place] [address] October, [facility] [address] [facility] [id number] [address] [place] [address] October, Renal insufficiency N28.9 an d Hyperparathyroidism E21.3 [facility] [address] [facility] [id number] [address] [place] [address] October, [facility] [address] [facility] [id number] [address] [place] [address] October, Renal insufficiency N28.9 an d Hyperparathyroidism E21.3 [facility] [address] [facility] [id number] [address] [place] [address] October, Arthritis M19.90 [facility] [address] [facility] [id number] [address] [place] [address] Sep, [facility] [address] [facility] [id number] [address] [place] [address] Sep, Lumbar neuritis M54.16 ; Tho racic abscess J86.9 and 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 [facility] [address] [id number] [address] [place] [address] Sep, [facility] [address] [facility] [id number] [address] [place] [address] Aug, Arthritis M19.90 [facility] [address] [facility] [id number] [address] [place] [address] Aug, Hyperparathyroidism E21.3 [facility] [address] [facility] [id number] [address] [place] [address] Aug, Hyperparathyroidism E21.3 [facility] [address] [facility] [id number] [address] [place] [address] Aug, Arthritis M19.90 [facility] [address] [facility] [id number] [address] [place] [address] Jul, Mass of throat R22.1 [facility] [address] [facility] [id number] [address] [place] [address] Jul, [facility] [address] [facility] [id number] [address] [place] [address] Jul, Arthritis M19.90 [facility] [address] [facility] [id number] [address] [place] [address] Jun, Arthritis M19.90 [facility] [address] [facility] [id number] [address] [place] [address] Jun, [facility] [address] [facility] [id number] [address] [place] [phone] 09 Jun, 2016 Renal insufficiency N28.9 an d 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 [facility] [address] [facility] [id number] [address] [place] [address] 05 Jun, 2016 Medicare welcome exam Z00.00 ; Encounter for immunization Z23 ; Arthritis M19.90 ; Medicare annual wellness visit, initial Z00.00 ; Medicare annual wellness visit, subsequent Z00.00 and 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 [facility] [address] [facility] [id number] [address] [place] [id number] 29 May, 2016 Renal insufficiency N28.9 an d 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 [facility] [address] [facility] [id number] [address] [place] [address] 19 May, [address] [facility] [address] [facility] [id number] [address] [place] [address] May, Renal insufficiency N28.9 [facility] [address] [facility] [id number] [address] [place] [address] May, [facility] [address] [place] [id number] [address] [place] [address] Apr, [facility] [address] [place] [id number] [address] [place] [address] Apr, [facility] [address] [facility] [id number] [address] [place] [address] Apr, Mass of throat R22.1 [facility] [address] [facility] [id number] [address] [place] [address] 10 Apr, 2016 [facility] [address] [place] [id number] [address] [place] [id number] 10 Apr, 2016 Mass of throat R22.1 [facility] [address] [facility] [id number] [address] [place] [id number] 04 Apr, 2016 Mass of throat R22.1 [facility] [address] [id number] [address] [place] [phone] Mar, [facility] [address] [id number] [address] [place] [phone] Mar, [facility] [address] [id number] [address] [place] [phone] Mar, [facility] [address] [id number] [address] [place] [phone] Mar, Parathyroid abnormality E21. 5 and Encounter for immunization Z23 [facility] [address] [id number] [address] [place] [phone] Mar, [facility] [address] [id number] [address] [place] [phone] Mar, [facility] [address] [facility] [id number] [address] [place] [id number] 21 Feb, 2016 Renal insufficiency N28.9 an d Hyperparathyroidism E21.3 [facility] [address] [facility] [id number] [address] [place] [id number] 19 Feb, 2016 [facility] [address] [id number] [address] [place] [phone] 15 Feb, 2016 Renal insufficiency N28.9 an d Hyperparathyroidism E21.3 [facility] [address] [facility] [id number] [address] [place] [id number] 14 Feb, [address] [facility] [address] [facility] [id number] [address] [place] [phone] 12 Feb, 2016 [facility] [address] [id number] [address] [place] [phone] [address], [address] [facility] [address] [facility] [id number] [address] [place] [phone] Jan, [facility] [address] [facility] [id number] [address] [place] [phone] Jan, Arthritis M19.90 ; Lumbago w ith sciatica, right side M54.41 and Other chronic pain G89.29 [facility] [address] [id number] [address] [place] [id number] Jan, [facility] [address] [facility] [id number] [address] [place] [phone] Dec, Arthritis M19.90 ; Lumbago w ith sciatica, right side M54.41 and Other chronic pain G89.29 [facility] [address] [facility] [id number] [address] [place] [phone] Nov, Deficiency of other specifie d B group vitamins E53.8 ; Primary insomnia F51.01 ; Mood disorder F39 and Lumbago with sciatica, right side M54.41 [place] [address] [address] [facility] [id number] [address] [place] [id number] Nov, Hyperparathyroidism E21.3 [place] [address] [address] [facility] [id number] [address] [place] [phone] Nov, Unspecified kidney failure N 19 and Hyperparathyroidism E21.3 [place] [address] [address] [facility] [id number] [address] [place] [phone] October, Hyperparathyroidism E21.3 [place] [address] [address] [facility] [id number] [address] [place] [phone] October, [place] [address] [address] [facility] [id number] 45 [place] [address] October, Hyperparathyroidism E21.3 [place] [address] [address] [facility] [id number] [address] [place] [id number] October, Hyperparathyroidism E21.3 [place] [address] [address] [facility] [id number] [address] [place] [id number] Sep, Hyperparathyroidism E21.3 ; Hypercholesterolemia E78.[address] [facility] [address] [facility] [id number] [address] [place] [id number] Aug, [place] [address] [address] [facility] [id number] [address] [place] [address] Aug, Deficiency of other specifie d B group vitamins E53.8 [facility] [address] [facility] [id number] [address] [place] [id number] Aug, [facility] [address] [facility] [id number] [address] [place] [id number] Jul, Urinary frequency R35.0 [facility] [address] [facility] [id number] [address] [place] [id number] Jul, Urinary frequency R35.0 [facility] [address] [facility] [id number] [address] [place] [id number] Jul, [facility] [address] [facility] [id number] [address] [place] [id number] Jul, [facility] [address] [facility] [id number] [address] [place] [address] Jun, Pain in left knee M25.562 [facility] [address] [facility] [id number] [address] [place] [address] Jun, [facility] [address] [facility] [id number] [address] [place] [id number] May, Swelling of left knee joint M25.462 [facility] [address] [facility] [id number] [address] [place] [id number] [address], [address] [facility] [address] [facility] [id number] [address] [place] [phone] May, [facility] [address] [facility] [id number] [address] [place] [phone] May, [facility] [address] [facility] [id number] [address] [place] [id number] Apr, Renal insufficiency N28.9 an d Chronic kidney disease, stage 4 (severe) N18.4 [facility] [address] [facility] [id number] [address] [place] [address] Apr, Unspecified kidney failure N 19 [facility] [address] [id number] [address] [place] [id number] Apr, Unspecified kidney failure N 19 [facility] [address] [id number] [address] [place] [id number] Apr, [facility] [address] [id number] [address] [place] [id number] Apr, Hyperparathyroidism, unspeci fied 252.00 [facility] [address] [id number] [address] [place] [address] Apr, [facility] [address] [id number] [address] [place] [id number] Mar, [facility] [address] [id number] [address] [place] [address] Mar, [facility] [address] [id number] [address] [place] [id number] Mar, Hyperparathyroidism, unspeci fied 252.00 [facility] [address] [id number] [address] [place] [id number] Feb, [facility] [address] [id number] [address] [place] [id number] Feb, Otalgia 388.70 [facility] [address] [id number] [address] [place] [id number] Feb, [facility] [address] [id number] [address] [place] [id number] Feb, [facility] [address] [id number] [address] [place] [phone] Jan, [facility] [address] [id number] [address] [place] [id number] Jan, Hyperparathyroidism, unspeci fied 252.00 [facility] [address] [id number] [address] [place] [id number] Jan, [facility] [address] [id number] [address] [place] [id number] Jan, Other B-complex deficiencies 266.2 and Hyperparathyroidism, unspecified 252.00 [facility] [address] [id number] [address] [place] [address] Jan, [facility] [address] [id number] [address] [place] [address] Jan, [facility] [address] [id number] [address] [place] [address] Jan, [facility] [address] [id number] [address] [place] [id number] Dec, [facility] [address] [id number] [address] [place] [address] Dec, [facility] [address] [id number] [address] [place] [id number] Dec, [facility] [address] [id number] [address] [place] [address] Nov, Routine check-up V70.0 and P re-op exam V72.84 [facility] [address] [id number] [address] [place] [address] Nov, [facility] [address] [id number] [address] [place] [address] Nov, [facility] [address] [id number] [address] [place] [id number] October, [facility] [address] [id number] [address] [place] [id number] October, Other B-complex deficiencies 266.2 [facility] [address] [id number] [address] [place] [id number] October, [facility] [address] [id number] [address] [place] [id number] Sep, [facility] [address] [id number] [address] [place] [id number] Sep, [facility] [address] [id number] [address] [place] [address], [place] [address] Aug, [facility] [address] [id number] [address] [place] [address], [place] [id number] 20 Aug, 2014 [facility] [address] [id number] [address] [place] [address], [place] [address] 17 Aug, 2014 [facility] [address] [id number] [address] [place] [address], [place] [address] 17 Aug, 2014 [facility] [address] [id number] [address] [place] [address], [place] [address] Aug, [facility] [address] [id number] [address] [place] [address], [place] [id number] Aug, [facility] [address] [id number] [address] [place] [address], [place] [address] 18 Jul, 2014 [facility] [address] [id number] [address] [place] [address], [place] [id number] 18 Jul, 2014 [facility] [address] [id number] [address] [place] [address], [place] [id number] 17 Jul, 2014 [facility] [address] [id number] [address] [place] [address], [place] [address] 17 Jul, 2014 [facility] [address] [id number] [address] [place] [address], [place] [address] 12 Jul, 2014 [facility] [address] [id number] [address] [place] [address], [place] [id number] Jul, 2014 [facility] [address] [id number] [address] [place] [address], [place] [id number] 10 Jul, 2014 [facility] [address] [id number] [address] [place] [address], [place] [id number] 10 Jul, 2014 [facility] [address] [id number] [address] [place] [address], [place] [id number] 09 Jul, 2014 [facility] [address] [id number] [address] [place] [address], [place] [address] Jul, [facility] [address] [id number] [address] [place] [address], [place] [id number] Jul, [facility] [address] [id number] [address] [place] [address], [place] [id number] Jul, 2014 [facility] [address] [id number] [address] [place] [address], [place] [id number] Jul, [facility] [address] [id number] [address] [place] [address], [place] [address] Jul, [facility] [address] [id number] [address] [place] [address], [place] [address] Jun, [facility] [address] [id number] [address] [place] [address], [place] [id number] Jun, [facility] [address] [id number] [address] [place] [address], [place] [address] Jun, [facility] [address] [id number] [address] [place] [address], [place] [address] Jun, [facility] [address] [id number] [address] [place] [address], [place] [address] Jun, [facility] [address] [id number] [address] [place] [address], [place] [address] Jun, [facility] [address] [id number] [address] [place] [address], [place] [id number] Jun, [facility] [address] [id number] [address] [place] [address], [place] [address] Jun, [facility] [address] [id number] [address] [place] [address], [place] [address] Jun, [facility] [address] [id number] [address] [place] [address], [place] [address] Jun, [facility] [address] [id number] [address] [place] [address], [place] [address] Jun, [facility] [address] [id number] [address] [place] [address], [place] [address] Jun, [facility] [address] [id number] [address] [place] [address], [place] [address] Jun, [facility] [address] [id number] [address] [place] [address], [place] [address] Jun, [facility] [address] [id number] [address] [place] [address], [place] [address] May, [facility] [address] [id number] [address] [place] [address], [place] [address] May, [facility] [address] [id number] [address] [place] [address], [place] [address] May, [facility] [address] [id number] [address] [place] [address], [place] [address] May, [facility] [address] [id number] [address] [place] [address], [place] [id number] Apr, [facility] [address] [id number] [address] [place] [address], [place] [address] Apr, [facility] [address] [id number] [address] [place] [address], [place] [address] Apr, [facility] [address] [id number] [address] [place] [address], [place] [address] Apr, [facility] [address] [id number] [address] [place] [address], [place] [address] Apr, [facility] [address] [id number] [address] [place] [address], [place] [address] Apr, [facility] [address] [id number] [address] [place] [address], [place] [address] Mar, [facility] [address] [id number] [address] [place] [address], [place] [address] Mar, [facility] [address] [id number] [address] [place] [address] [place] [id number] 22 Mar, 2013 [facility] [address] [id number] [address] [place] [address], [place] [address] 22 Mar, 2014 [facility] [address] [id number] [address] [place] [address], [place] [address] 15 Mar, 2014 [facility] [address] [id number] [address] [place] [address], [place] [address] 15 Mar, 2014 [facility] [address] [id number] [address] [place] [address], [place] [address] 13 Mar, 2014 [facility] [address] [id number] [address] [place] [address], [place] [address] 13 Mar, 2014 [facility] [address] [id number] [address] [place] [address], [place] [address] 07 Mar, 2013 [facility] [address] [id number] [address] [place] [address], [place] [address] 07 Mar, 2013 [facility] [address] [id number] [address] [place] [address], [place] [address] 07 Mar, 2013 [facility] [address] [id number] [address] [place] [address], [place] [address] 07 Mar, 2013 [facility] [address] [id number] [address] [place] [address], [place] [address] 06 Mar, 2013 [facility] [address] [id number] [address] [place] [address], [place] [address] 26 Feb, 2013 [facility] [address] [id number] [address] [place] [address], [place] [address] 26 Sep, 2013 [facility] [address] [id number] [address] [place] [address], [place] [address] 23 Feb, 2013 [facility] [address] [id number] [address] [place] [address], [place] [address] 23 Feb, 2013 [facility] [address] [id number] [address] [place] [address], [place] [address] 19 Feb, 2013 [facility] [address] [id number] [facility] [place] [address] 19 Feb, 2013 [facility] [address] [id number] [facility] [place] [address] 13 Feb, 2014 [facility] [address] [id number] [address] [place] [address], [place] [address] 13 Feb, 2014 [facility] [address] [id number] [address] [place] [address], [place] [address] 12 Feb, 2014 [facility] [address] [id number] [address] [place] [address], [place] [address] 12 Feb, 2014 [facility] [address] [id number] [address] [place] [address], [place] [address] Jan, [facility] [address] [id number] [address] [place] [address], [place] [address] Jan, [facility] [address] [id number] [address] [place] [address], [place] [address] Dec, [facility] [address] [id number] [address] [place] [address], [place] [address] Dec, [facility] [address] [id number] [address] [place] [address], [place] [address] Dec, [facility] [address] [id number] [address] [place] [address], [place] [address] Dec, [facility] [address] [id number] [address] [place] [address], [place] [address] Dec, [facility] [address] [id number] [address] [place] [address], [place] [address] Dec, [facility] [address] [id number] [address] [place] [address], [place] [address] Nov, [facility] [address] [id number] [address] [place] [address], [place] [address] Nov, [facility] [address] [id number] [address] [place] [address], [place] [address] Nov, [facility] [address] [id number] [facility] [place] [address] Nov, [facility] [address] [id number] [facility] [place] [address] October, [facility] [address] [id number] [facility] [place] [address] October, [facility] [address] [id number] [address] [place] [address], [place] [address] October, [facility] [address] [id number] [facility] [place] [address] October, [facility] [address] [id number] [address] [place] [address], [place] [address] October, [facility] [address] [id number] [address] [place] [address], [place] [address] October, [facility] [address] [id number] [address] [place] [address], [place] [address] October, [facility] [address] [id number] [address] [place] [address], [place] [address] October, [facility] [address] [id number] [address] [place] [address], [place] [address] October, [facility] [address] [id number] [address] [place] [address], [place] [address] October, [facility] [address] [id number] [address] [place] [address], [place] [id number] October, [facility] [address] [id number] [address] [place] [address], [place] [address] October, [facility] [address] [id number] [address] [place] [address], [place] [address] October, [facility] [address] [id number] [address] [place] [address], [place] [address] October, [facility] [address] [id number] [facility] [place] [address] October, [facility] [address] [id number] [address] [place] [address], [place] [address] October, [facility] [address] [id number] [facility] [place] [address] Sep, [facility] [address] [id number] [address] [place] [address], [place] [address] Sep, [facility] [address] [id number] [address] [place] [address], [place] [address] Sep, [facility] [address] [id number] [address] [place] [address], [place] [address] Sep, [facility] [address] [id number] [address] [place] [address], [place] [address] Sep, [facility] [address] [id number] [address] [place] [address], [place] [address] Sep, [facility] [address] [id number] [address] [place] [address], [place] [id number] Aug, [facility] [address] [id number] [address] [place] [address], [place] [id number] Aug, [facility] [address] [id number] [address] [place] [address], [place] [id number] Aug, [facility] [address] [id number] [address] [place] [address], [place] [id number] Aug, [facility] [address] [id number] [address] [place] [address], [place] [id number] Aug, [facility] [address] [id number] [address] [place] [address], [place] [id number] Aug, [facility] [address] [id number] [address] [place] [address], [place] [id number] Jul, [facility] [address] [id number] [address] [place] [address], [place] [id number] Jul, [facility] [address] [id number] [address] [place] [address], [place] [id number] Jul, [facility] [address] [id number] [address] [place] [address], [place] [id number] Jul, [facility] [address] [id number] [address] [place] [address], [place] [id number] Jun, [facility] [address] [id number] [address] [place] [address], [place] [id number] Jun, [facility] [address] [id number] [address] [place] [address], [place] [id number] May, [facility] [address] [id number] [address] [place] [address], [place] [id number] May, [facility] [address] [id number] [address] [place] [address], [place] [id number] May, [facility] [address] [id number] [address] [place] [address], [place] [id number] May, [facility] [address] [id number] [address] [place] [address], [place] [id number] May, [facility] [address] [id number] [address] [place] [address], [place] [id number] Apr, [facility] [address] [id number] [address] [place] [address], [place] [id number] Apr, [facility] [address] [id number] [address] [place] [address], [place] [id number] Apr, [facility] [address] [id number] [address] [place] [address], [place] [id number] Apr, [facility] [address] [id number] [address] [place] [address], [place] [id number] Apr, [facility] [address] [id number] [address] [place] [address], [place] [id number] Apr, [facility] [address] [id number] [address] [place] [address] [place] [id number] 15 Mar, 2013 [facility] [address] [id number] [address] [place] [address], [place] [id number] 15 Mar, 2013 [facility] [address] [id number] [address] [place] [address], [place] [id number] 14 Mar, 2013 [facility] [address] [id number] [address] [place] [address], [place] [id number] 14 Mar, 2013 [facility] [address] [id number] [address] [place] [address], [place] [id number] 11 Mar, 2013 [facility] [address] [id number] [address] [place] [address], [place] [id number] 11 Mar, 2013 [facility] [address] [id number] [address] [place] [address], [place] [id number] 23 Feb, 2013 [facility] [address] [id number] [address] [place] [address], [place] [id number] 19 Feb, 2013 [facility] [address] [id number] [address] [place] [address], [place] [id number] 04 Feb, 2013 [facility] [address] [id number] [address] [place] [address], [place] [id number] 30 Jan, 2013 [facility] [address] [id number] [address] [place] [address], [place] [id number] Jan, [facility] [address] [id number] [address] [place] [address], [place] [id number] Jan, [facility] [address] [id number] [address] [place] [address], [place] [id number] 16 Jan, 2013 [facility] [address] [id number] [address] [place] [address], [place] [id number] Jan, [facility] [address] [id number] [address] [place] [address], [place] [id number] Jan, [facility] [address] [id number] [address] [place] [address], [place] [id number] Dec, [facility] [address] [id number] [address] [place] [address], [place] [id number] Dec, [facility] [address] [id number] [address] [place] [address], [place] [id number] Dec, [facility] [address] [id number] [address] [place] [address], [place] [id number] Dec, [facility] [facility] [address] [id number] [address] [place] [address], [place] [id number] Dec, [facility] [address] [id number] [address] [place] [address], [place] [id number] Dec, [facility] [address] [id number] [address] [place] [address], [place] [id number] Nov, [facility] [address] [id number] [address] [place] [address], [place] [id number] Nov, [facility] [address] [id number] [address] [place] [address], [place] [id number] Nov, [facility] [address] [id number] [address] [place] [address], [place] [id number] Nov, [facility] [address] [id number] [address] [place] [address], [place] [id number] Nov, [facility] [address] [id number] [address] [place] [address], [place] [id number] Nov, [facility] [address] [id number] [address] [place] [address], [place] [id number] October, [facility] [address] [id number] [address] [place] [address], [place] [id number] October, [facility] [address] [id number] [address] [place] [address], [place] [id number] October, [facility] [address] [id number] [address] [place] [address], [place] [id number] October, [facility] [address] [id number] [address] [place] [address], [place] [id number] October, [facility] [address] [id number] [address] [place] [address], [place] [id number] 30 Sep, 2012 [facility] [address] [id number] [address] [place] [address], [place] [id number] 23 Sep, 2012 [facility] [address] [id number] [address] [place] [address], [place] [id number] Sep, [facility] [address] [id number] [address] [place] [address], [place] [id number] 18 Sep, 2012 [facility] [address] [id number] [address] [place] [address], [place] [id number] Sep, [facility] [address] [id number] [address] [place] [address], [place] [id number] Aug, [facility] [address] [id number] [address] [place] [address], [place] [id number] Aug, [facility] [address] [id number] [address] [place] [address], [place] [id number] 04 Aug, 2012 [facility] [address] [id number] [address] [place] [address], [place] [id number] Jul, [facility] [address] [id number] [address] [place] [address], [place] [id number] Jul, [facility] [address] [id number] [address] [place] [address], [place] [id number] Jul, [facility] [address] [id number] [address] [place] [address], [place] [id number] 08 Jul, 2012 [facility] [address] [id number] [address] [place] [address], [place] [id number] 06 Jul, 2012 [facility] [address] [id number] [address] [place] [address], [place] [id number] 05 Jul, 2012 [facility] [address] [id number] [address] [place] [address], [place] [id number] 15 Jun, 2012 [facility] [address] [id number] [address] [place] [address], [place] [id number] 16 Apr, 2012 [facility] [address] [id number] [address] [place] [address], [place] [id number] Apr, [facility] [address] [id number] [address] [place] [address], [place] [id number] Apr, [facility] [address] [id number] [address] [place] [address], [place] [id number] Apr, [facility] [address] [id number] [address] [place] [address], [place] [id number] Mar, [facility] [address] [id number] [address] [place] [address], [place] [id number] Mar, [facility] [address] [id number] [address] [place] [address], [place] [id number] Mar, [facility] [address] [id number] [address] [place] [address], [place] [id number] Mar, [facility] [address] [id number] [address] [place] [address], [place] [id number] Mar, [facility] [address] [id number] [address] [place] [address], [place] [id number] Feb, [facility] [address] [id number] [address] [place] [address], [place] [id number] Jan, [facility] [address] [id number] [address] [place] [address], [place] [id number] Jan, [facility] [address] [id number] [address] [place] [address], [place] [id number] Jan, [facility] [address] [id number] [address] [place] [address], [place] [id number] Dec, [facility] [address] [id number] [address] [place] [address], [place] [id number] Nov, [facility] [address] [id number] [address] [place] [address], [place] [id number] Nov, [facility] [address] [id number] [address] [place] [id number] Nov, [facility] [address] [id number] [address] [place] [id number] Nov, [facility] [address] [facility] [id number] [address] [place] [id number] Nov, [facility] [address] [id number] [address] [place] [id number] October, [facility] [address] [facility] [id number] [address] [place] [id number] October, [facility] [address] [facility] [id number] [address] [place] [id number] October, [facility] [address] [facility] [id number] [address] [place] [id number] October, [facility] [address] [facility] [id number] [address] [place] [id number] October, IMMUNIZATIONS No Known Immunizations SOCIAL HISTORY [...]
--- OUTSIDE RECORDS SUMMARY | 2020-01-25 07:43 | XMS REPORT ---
Author Author Velma CORDERO Organization [facility] Address [address] [place] [address] Care Team Providers Care Airline Security Representative Name Role Phone STEPHAN CORDERO Unavailable PROBLEMS Type Condition ICD9-CM Code [id number] Code Onset Dates Condition S tatus SNOMED Code Problem Primary insomnia F51.01 Active 397 2004 Problem Hypercholesteremia E78.0 Active 1 8295231 Problem Corns L84 Active 143390167 Problem Arthritis M19.90 Active 7232210 Problem Hyperparathyroidism E21.3 Active 78911835 Problem 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 Active 41229410 Problem 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 Active 41081797 Problem BPV (benign positional vertigo), bilateral H81.13 Active 797285053 Problem Unspecified kidney failure N19 Act chip 00172384 Problem Myalgia M79.1 Active 67213004 Problem 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 Active 640263903 Problem Mood disorder F39 Active 532628 05 Problem Chronic kidney disease, stage 4 (severe) N18.4 Active 894762379 Problem Primary osteoarthritis of left knee M17.12 Active [id number] Problem Irritable bowel syndrome with both constipation and diarrh ea K58.2 Active 96595689 Problem Body mass index (BMI) of 40.0-44.9 in adult Z68.41 Active 411592428 ALLERGIES No Information ENCOUNTERS Encounter Location Date Diagnosis [facility] [address] [facility] [id number] [address] [place] [id number] Mar, [facility] [address] [facility] [id number] [address] [place] [address] Mar, [facility] [address] [facility] [id number] [address] [place] [phone] Feb, [facility] [address] [facility] [id number] [address] [place] [address] Feb, Other specified disorders of bone density and structure, unspecified site M85.80 [facility] [address] [id number] [address] [place] [address] Jan, Arthritis M19.90 [facility] [address] [id number] [address] [place] [address] Dec, Arthritis M19.90 [facility] [address] [id number] [address] [place] [address] Nov, Inflammatory spondylopathy o f sacral region M46.98 [facility] [address] [id number] [address] [place] [id number] Nov, [facility] [address] [facility] [id number] [address] [place] [address] Nov, Labyrinthitis of left ear H8 3.02 [facility] [address] [facility] [id number] [address] [place] [address] Nov, Arthritis M19.90 [facility] [address] [id number] [address] [place] [address] Sep, Arthritis M19.90 [facility] [address] [facility] [id number] [address] [place] [address] Sep, Renal insufficiency N28.9 an d Unspecified kidney failure N19 [facility] [address] [facility] [id number] [address] [place] [address] Sep, Renal insufficiency N28.9 an d Unspecified kidney failure N19 [facility] [address] [facility] [id number] [address] [place] [id number] Sep, Arthritis M19.90 [facility] [address] [facility] [id number] [address] [place] [address] Aug, Exercise counseling Z71.82 [facility] [address] [facility] [id number] [address] [place] [id number] Aug, [facility] [address] [facility] [id number] [address] [place] [id number] 27 Jul, 2018 Labyrinthitis of left ear H8 3.02 [facility] [place] [address] [facility] [id number] [address] [place] [id number] 22 Jul, 2018 Labyrinthitis of left ear H8 3.02 [facility] [address] [facility] [id number] [address] [place] [id number] 19 Jul, 2018 Exercise counseling Z71.82 [facility] [place] [address] [facility] [id number] [address] [place] [id number] 18 Jul, 2018 [place] [address] [place] [id number] [place] [address] 14 Jul, 2018 Arthritis M19.90 [facility] [address] [place] [id number] [place] [address] 13 Jul, 2018 Encounter for Medicare annua l wellness exam Z00.00 ; Chronic kidney disease, stage 4 (severe) N18.4 ; Body mass index (BMI) of 40.0-44.9 in adult Z68.41 ; Hyperparathyroidism E21.3 and BMI 40.0-44.9, adult Z68.41 [place] [address] [place] [id number] [address] [place] [address] 13 Jul, 2018 Encounter for Medicare annua l wellness exam Z00.00 ; Chronic kidney disease, stage 4 (severe) N18.4 ; Hyperparathyroidism E21.3 ; Body mass index (BMI) of 40.0-44.9 in adult Z68.41 and Encounter for immunization Z23 [facility] [address] [facility] [id number] [address] [place] [address] 11 Jul, 2018 Tail bone pain M53.3 [place] [address] [facility] [id number] [address] [place] [address] Jun, Exercise counseling Z71.82 [place] [address] [place] [id number] [address] [place] [id number] Jun, Labyrinthitis of left ear H8 3.02 [facility] [address] [id number] [address] [place] [address] Jun, Tail bone pain M53.3 ; Irrit able bowel syndrome with both constipation and diarrhea K58.2 and Dysfunction of left eustachian tube H69.82 [facility] [address] [id number] [address] [place] [address] Jun, Exercise counseling Z71.82 [facility] [address] [id number] [address] [place] [address] Jun, Arthritis M19.90 [facility] [address] [id number] [address] [place] [address] Jun, Irritable bowel syndrome wit h both constipation and diarrhea K58.2 ; Tail bone pain M53.3 and Dysfunction of left eustachian tube H69.82 [facility] [address] [id number] [address] [place] [address] Jun, Exercise counseling Z71.82 [facility] [address] [id number] [address] [place] [address] Jun, Exercise counseling Z71.82 [facility] [address] [id number] [address] [place] [address] Jun, Labyrinthitis of left ear H8 3.02 [facility] [address] [id number] [address] [place] [address] May, Exercise counseling Z71.82 [facility] [address] [id number] [address] [place] [address] May, Arthritis M19.90 [facility] [address] [id number] [address] [place] [address] May, Exercise counseling Z71.82 [facility] [address] [id number] [address] [place] [address] May, Exercise counseling Z71.82 [facility] [address] [id number] [address] [place] [id number] 06 May, 2018 Labyrinthitis of left ear H8 3.02 [facility] [address] [id number] [address] [place] [address] 03 May, 2018 Exercise counseling Z71.82 [facility] [address] [id number] [address] [place] [address] Apr, Arthritis M19.90 [facility] [address] [id number] [address] [place] [address] Apr, Exercise counseling Z71.82 [facility] [address] [id number] [address] [place] [address] Apr, Exercise counseling Z71.82 [facility] [address] [id number] [address] [place] [id number] Apr, Primary osteoarthritis of le ft knee M17.12 [facility] [address] [id number] [address] [place] [id number] 08 Apr, 2018 Labyrinthitis of left ear H8 3.02 [facility] [address] [id number] [address] [place] [id number] 30 Mar, 2018 Arthritis M19.90 [facility] [address] [id number] [address] [place] [id number] 16 Mar, 2018 [facility] [address] [id number] [address] [place] [address] Mar, Chronic kidney disease, stag e 4 (severe) N18.4 [facility] [address] [id number] [address] [place] [id number] Mar, Chronic kidney disease, stag e 4 (severe) N18.4 [facility] [address] [id number] [address] [place] [id number] 09 Mar, 2018 Labyrinthitis of left ear H8 3.02 [facility] [address] [id number] [address] [place] [address] Mar, Chronic kidney disease, stag e 4 (severe) N18.4 ; Knee pain, left anterior M25.562 ; 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 and Encounter for immunization Z23 [facility] [address] [facility] [id number] [address] [place] [address] Mar, Arthritis M19.90 [facility] [address] [place] [id number] [address] [place] [address] Feb, Labyrinthitis of left ear H8 3.02 [facility] [address] [place] [id number] [address] [place] [address] Feb, Arthritis M19.90 [facility] [address] [place] [id number] [address] [place] [address] Jan, Labyrinthitis of left ear H8 3.02 [facility] [address] [place] [id number] [address] [place] [address] Jan, Arthritis M19.90 [facility] [address] [place] [id number] [address] [place] [id number] Dec, Labyrinthitis of left ear H8 3.02 [facility] [address] [place] [id number] [address] [place] [address] Nov, Arthritis M19.90 [facility] [address] [place] [id number] [address] [place] [id number] Nov, Labyrinthitis of left ear H8 3.02 [facility] [address] [facility] [id number] [address] [place] [address] Nov, BMI 40.0-44.9, adult Z68.41 ; Chronic kidney disease, stage 4 (severe) N18.4 and Acute right-sided thoracic back pain M54.6 [facility] [address] [place] [id number] [address] [place] [address] October, Labyrinthitis of left ear H8 3.02 and Arthritis M19.90 [facility] [address] [facility] [id number] [address] [place] [address] Sep, BPV (benign positional verti go), bilateral H81.13 ; Dysfunction of left eustachian tube H69.82 and BMI 40.0-44.9, adult Z68.41 [facility] [address] [facility] [id number] [address] [place] [address] Sep, Labyrinthitis of left ear H8 3.02 and Arthritis M19.90 [facility] [address] [id number] [address] [place] [id number] Sep, [facility] [address] [facility] [id number] [address] [place] [address] Sep, [facility] [address] [facility] [id number] [address] [place] [address] Sep, Chronic kidney disease, stag e 4 (severe) N18.4 [facility] [address] [facility] [id number] [address] [place] [id number] Sep, Chronic kidney disease, stag e 4 (severe) N18.4 [facility] [address] [facility] [id number] [address] [place] [address] Aug, Labyrinthitis of left ear H8 3.02 and Arthritis M19.90 [facility] [address] [facility] [id number] [address] [place] [phone] Aug, [facility] [address] [facility] [id number] [address] [place] [id number] Jul, [facility] [address] [facility] [id number] [address] [place] [address] Jul, Arthritis M19.90 and Labyrin thitis of left ear H83.02 [facility] [address] [facility] [id number] [address] [place] [id number] Jul, [facility] [address] [place] [id number] [address] [place] [address] Jun, [place] [address] [facility] [id number] [address] [place] [address] Jun, Arthritis M19.90 and Labyrin thitis of left ear H83.02 [place] [address] [place] [id number] [address] [place] [address] Jun, Pre-op evaluation Z01.818 ; BMI 40.0-44.9, adult Z68.41 and Encounter for immunization Z23 [place] [address] [place] [id number] [address] [place] [address] May, Arthritis M19.90 and Labyrin thitis of left ear H83.02 [place] [address] [place] [id number] [place] [address] Apr, Labyrinthitis of left ear H8 3.02 [place] [address] [address] Apr, Arthritis M19.90 and Labyrin thitis of left ear H83.02 [place] [address] [place] [id number] [address] [place] [address] Mar, Arthritis M19.90 and Labyrin thitis of left ear H83.02 [place] [address] [place] [id number] [address] [place] [address] Mar, Chronic kidney disease, stag e 4 (severe) N18.4 [place] [address] [place] [id number] [address] [place] [address] Feb, Arthritis M19.90 and Labyrin thitis of left ear H83.02 [place] [address] [place] [id number] [address] [place] [address] Jan, Labyrinthitis of left ear H8 3.02 and 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 [place] [address] [place] [id number] [address] [place] [address] Dec, Arthritis M19.90 [facility] [address] [facility] [id number] [address] [place] [address] Dec, BPV (benign positional verti go), bilateral H81.13 [facility] [address] [facility] [id number] [address] [place] [address] Dec, [facility] [address] [facility] [id number] [address] [place] [address] Dec, [facility] [address] [facility] [id number] [address] [place] [address] Dec, [facility] [address] [facility] [id number] [address] [place] [address] Nov, Arthritis M19.90 and Deficie ncy 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 [facility] [address] [facility] [id number] [address] [place] [address] Nov, Arthritis M19.90 [facility] [address] [facility] [id number] [address] [place] [address] Nov, Hyperparathyroidism E21.3 [facility] [address] [facility] [id number] [address] [place] [address] October, [facility] [address] [facility] [id number] [address] [place] [address] October, Hyperparathyroidism E21.3 [facility] [address] [facility] [id number] [address] [place] [address] October, [facility] [address] [facility] [id number] [address] [place] [address] October, Renal insufficiency N28.9 an d Hyperparathyroidism E21.3 [facility] [address] [facility] [id number] [address] [place] [address] October, [facility] [address] [facility] [id number] [address] [place] [address] October, Renal insufficiency N28.9 an d Hyperparathyroidism E21.3 [facility] [address] [facility] [id number] [address] [place] [address] October, Arthritis M19.90 [facility] [address] [facility] [id number] [address] [place] [address] Sep, [facility] [address] [facility] [id number] [address] [place] [address] Sep, Lumbar neuritis M54.16 ; Tho racic abscess J86.9 and 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 [facility] [address] [id number] [address] [place] [address] Sep, [facility] [address] [facility] [id number] [address] [place] [address] Aug, Arthritis M19.90 [facility] [address] [facility] [id number] [address] [place] [address] Aug, Hyperparathyroidism E21.3 [facility] [address] [facility] [id number] [address] [place] [address] Aug, Hyperparathyroidism E21.3 [facility] [address] [facility] [id number] [address] [place] [address] Aug, Arthritis M19.90 [facility] [address] [facility] [id number] [address] [place] [address] Jul, Mass of throat R22.1 [facility] [address] [facility] [id number] [address] [place] [id number] Jul, [facility] [address] [facility] [id number] [address] [place] [address] Jul, Arthritis M19.90 [facility] [address] [facility] [id number] [address] [place] [address] Jun, Arthritis M19.90 [facility] [address] [facility] [id number] [address] [place] [phone] Jun, [facility] [address] [facility] [id number] [address] [place] [address] 09 Jun, 2016 Renal insufficiency N28.9 an d 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 [facility] [address] [facility] [id number] [address] [place] [address] 05 Jun, 2016 Medicare welcome exam Z00.00 ; Encounter for immunization Z23 ; Arthritis M19.90 ; Medicare annual wellness visit, initial Z00.00 ; Medicare annual wellness visit, subsequent Z00.00 and 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 [facility] [address] [facility] [id number] [address] [place] [address] 29 May, 2016 Renal insufficiency N28.9 an d 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 [facility] [address] [facility] [id number] [address] [place] [address] 19 May, 2016 Renal insufficiency N28.9 [facility] [address] [facility] [id number] [address] [place] [address] May, Renal insufficiency N28.9 [facility] [address] [facility] [id number] [address] [place] [address] May, [facility] [address] [place] [id number] [address] [place] [id number] Apr, [facility] [address] [place] [id number] [address] [place] [id number] Apr, [facility] [address] [facility] [id number] [address] [place] [id number] Apr, Mass of throat R22.1 [facility] [address] [facility] [id number] [address] [place] [id number] 10 Apr, 2016 [facility] [address] [place] [id number] [address] [place] [id number] 10 Apr, 2016 Mass of throat R22.1 [facility] [address] [facility] [id number] [address] [place] [id number] 04 Apr, 2016 Mass of throat R22.1 [facility] [address] [id number] [address] [place] [id number] Mar, [facility] [address] [id number] [address] [place] [phone] Mar, [facility] [address] [id number] [address] [place] [id number] Mar, [facility] [address] [id number] [address] [place] [phone] Mar, Parathyroid abnormality E21. 5 and Encounter for immunization Z23 [facility] [address] [id number] [address] [place] [id number] Mar, [facility] [address] [id number] [address] [place] [id number] Mar, [facility] [address] [facility] [id number] [address] [place] [id number] 21 Feb, 2016 Renal insufficiency N28.9 an d Hyperparathyroidism E21.3 [facility] [address] [facility] [id number] [address] [place] [id number] 19 Feb, 2016 [facility] [address] [id number] [address] [place] [id number] 15 Feb, 2016 Renal insufficiency N28.9 an d Hyperparathyroidism E21.3 [facility] [address] [facility] [id number] [address] [place] [id number] 14 Feb, 2016 [facility] [address] [facility] [id number] [address] [place] [phone] 12 Feb, 2016 [facility] [address] [id number] [address] [place] [id number] 09 Feb, 2016 [facility] [address] [facility] [id number] [address] [place] [phone] Jan, [facility] [address] [facility] [id number] [address] [place] [id number] Jan, Arthritis M19.90 ; Lumbago w ith sciatica, right side M54.41 and Other chronic pain G89.29 [facility] [address] [id number] [address] [place] [id number] Jan, [facility] [address] [facility] [id number] [address] [place] [id number] Dec, Arthritis M19.90 ; Lumbago w ith sciatica, right side M54.41 and Other chronic pain G89.29 [facility] [address] [facility] [id number] [address] [place] [id number] Nov, Deficiency of other specifie d B group vitamins E53.8 ; Primary insomnia F51.01 ; Mood disorder F39 and Lumbago with sciatica, right side M54.41 [place] [address] [facility] [id number] [address] [place] [id number] Nov, Hyperparathyroidism E21.3 [place] [address] [facility] [id number] [address] [place] [phone] Nov, Unspecified kidney failure N 19 and Hyperparathyroidism E21.3 [place] [address] [facility] [id number] [address] [place] [address] October, Hyperparathyroidism E21.3 [place] [address] [address] [facility] [id number] [address] [place] [address] October, [place] [address] [address] [facility] [id number] [address] [place] [address] October, Hyperparathyroidism E21.3 [place] [address] [address] [facility] [id number] [address] [place] [address] October, Hyperparathyroidism E21.3 [place] [address] [address] [facility] [id number] [address] [place] [address] Sep, Hyperparathyroidism E21.3 ; Hypercholesterolemia E78.0 and Arthritis M19.90 [facility] [address] [facility] [id number] [address] [place] [address] Aug, [place] [address] [address] [facility] [id number] [address] [place] [address] Aug, Deficiency of other specifie d B group vitamins E53.8 [facility] [address] [facility] [id number] [address] [place] [address] Aug, [facility] [address] [facility] [id number] [address] [place] [address] Jul, Urinary frequency R35.0 [facility] [address] [facility] [id number] [address] [place] [address] Jul, Urinary frequency R35.0 [facility] [address] [facility] [id number] [address] [place] [address] Jul, [facility] [address] [facility] [id number] [address] [place] [address] Jul, [facility] [address] [facility] [id number] [address] [place] [address] Jun, Pain in left knee M25.562 [facility] [address] [facility] [id number] [address] [place] [address] Jun, [facility] [address] [facility] [id number] [address] [place] [address] May, Swelling of left knee joint M25.462 [facility] [address] [facility] [id number] [address] [place] [address] 16 May, 2015 [facility] [address] [facility] [id number] [address] [place] [address] May, [facility] [address] [facility] [id number] [address] [place] [address] May, [facility] [address] [facility] [id number] [address] [place] [address] Apr, Renal insufficiency N28.9 an d Chronic kidney disease, stage 4 (severe) N18.4 [facility] [address] [facility] [id number] [address] [place] [address] Apr, Unspecified kidney failure N 19 [facility] [address] [id number] [address] [place] [address] Apr, Unspecified kidney failure N 19 [facility] [address] [id number] [address] [place] [address] Apr, [facility] [address] [id number] [address] [place] [address] Apr, Hyperparathyroidism, unspeci fied 252.00 [facility] [address] [id number] [address] [place] [address] Apr, [facility] [address] [id number] [address] [place] [address] Mar, [facility] [address] [id number] [address] [place] [address] Mar, [facility] [address] [id number] [address] [place] [address] Mar, Hyperparathyroidism, unspeci fied 252.00 [facility] [address] [id number] [address] [place] [address] Feb, [facility] [address] [id number] [address] [place] [address] Feb, Otalgia 388.70 [facility] [address] [id number] [address] [place] [address] Feb, [facility] [address] [id number] [address] [place] [address] Feb, [facility] [address] [id number] [address] [place] [address] Jan, [facility] [address] [id number] [address] [place] [address] Jan, Hyperparathyroidism, unspeci fied 252.00 [facility] [address] [id number] [address] [place] [address] Jan, [facility] [address] [id number] [address] [place] [address] Jan, Other B-complex deficiencies 266.2 and Hyperparathyroidism, unspecified 252.00 [facility] [address] [id number] [address] [place] [address] Jan, [facility] [address] [id number] [address] [place] [address] Jan, [facility] [address] [id number] [address] [place] [address] Jan, [facility] [address] [id number] [address] [place] [address] Dec, [facility] [address] [id number] [address] [place] [address] Dec, [facility] [address] [id number] [address] [place] [address] Dec, [facility] [address] [id number] [address] [place] [address] Nov, Routine check-up V70.0 and P re-op exam V72.84 [facility] [address] [id number] [address] [place] [address] Nov, [facility] [address] [id number] [address] [place] [address] Nov, [facility] [address] [id number] [address] [place] [address] October, [facility] [address] [id number] [address] [place] [address] October, Other B-complex deficiencies 266.2 [facility] [address] [id number] [address] [place] [address] October, [facility] [address] [id number] [address] [place] [address] Sep, [facility] [address] [id number] [address] [place] [address] Sep, [facility] [address] [id number] [address] [place] [address], [place] [address] Aug, [facility] [address] [id number] [address] [place] [address], [place] [address] 20 Aug, 2014 [facility] [address] [id number] [address] [place] [address], [place] [address] 17 Aug, 2014 [facility] [address] [id number] [address] [place] [address], [place] [address] 17 Aug, 2014 [facility] [address] [id number] [address] [place] [address], [place] [address] Aug, [facility] [address] [id number] [address] [place] [address], [place] [address] Aug, [facility] [address] [id number] [address] [place] [address], [place] [address] 18 Jul, 2014 [facility] [address] [id number] [address] [place] [address], [place] [address] 18 Jul, 2014 [facility] [address] [id number] [address] [place] [address], [place] [address] 17 Jul, 2014 [facility] [address] [id number] [address] [place] [address], [place] [address] 17 Jul, 2014 [facility] [address] [id number] [address] [place] [address], [place] [address] 12 Jul, 2014 [facility] [address] [id number] [address] [place] [address], [place] [address] Jul, 2014 [facility] [address] [id number] [address] [place] [address], [place] [address] 10 Jul, 2014 [facility] [address] [id number] [address] [place] [address], [place] [address] 10 Jul, 2014 [facility] [address] [id number] [address] [place] [address], [place] [address] 09 Jul, 2014 [facility] [address] [id number] [address] [place] [address], [place] [address] Jul, [facility] [address] [id number] [address] [place] [address], [place] [address] Jul, [facility] [address] [id number] [address] [place] [address], [place] [address] Jul, 2014 [facility] [address] [id number] [address] [place] [address], [place] [address] Jul, [facility] [address] [id number] [address] [place] [address], [place] [address] Jul, [facility] [address] [id number] [address] [place] [address], [place] [address] Jun, [facility] [address] [id number] [address] [place] [address], [place] [address] Jun, [facility] [address] [id number] [address] [place] [address], [place] [address] Jun, [facility] [address] [id number] [address] [place] [address], [place] [address] Jun, [facility] [address] [id number] [address] [place] [address], [place] [address] Jun, [facility] [address] [id number] [address] [place] [address], [place] [address] Jun, [facility] [address] [id number] [address] [place] [address], [place] [address] Jun, [facility] [address] [id number] [address] [place] [address], [place] [address] Jun, [facility] [address] [id number] [address] [place] [address], [place] [address] Jun, [facility] [address] [id number] [address] [place] [address], [place] [address] Jun, [facility] [address] [id number] [address] [place] [address], [place] [address] Jun, [facility] [address] [id number] [address] [place] [address], [place] [address] Jun, [facility] [address] [id number] [address] [place] [address], [place] [address] Jun, [facility] [address] [id number] [address] [place] [address], [place] [address] Jun, [facility] [address] [id number] [address] [place] [address], [place] [address] May, [facility] [address] [id number] [address] [place] [address], [place] [address] May, [facility] [address] [id number] [address] [place] [address], [place] [address] May, [facility] [address] [id number] [address] [place] [address], [place] [address] May, [facility] [address] [id number] [address] [place] [address], [place] [address] Apr, [facility] [address] [id number] [address] [place] [address], [place] [address] Apr, [facility] [address] [id number] [address] [place] [address], [place] [address] Apr, [facility] [address] [id number] [address] [place] [address], [place] [address] Apr, [facility] [address] [id number] [address] [place] [address], [place] [address] Apr, [facility] [address] [id number] [address] [place] [address], [place] [address] Apr, [facility] [address] [id number] [address] [place] [address], [place] [address] Mar, [facility] [address] [id number] [address] [place] [address], [place] [address] Mar, [facility] [address] [id number] [address] [place] [address] [place] [address] 22 Mar, 2013 [facility] [address] [id number] [address] [place] [address], [place] [address] 22 Mar, 2014 [facility] [address] [id number] [address] [place] [address], [place] [address] 15 Mar, 2014 [facility] [address] [id number] [address] [place] [address], [place] [address] 15 Mar, 2014 [facility] [address] [id number] [address] [place] [address], [place] [address] 13 Mar, 2014 [facility] [address] [id number] [address] [place] [address], [place] [address] 13 Mar, 2014 [facility] [address] [id number] [address] [place] [address], [place] [address] 07 Mar, 2013 [facility] [address] [id number] [address] [place] [address], [place] [address] 07 Mar, 2013 [facility] [address] [id number] [address] [place] [address], [place] [address] 07 Mar, 2013 [facility] [address] [id number] [address] [place] [address], [place] [address] 07 Mar, 2013 [facility] [address] [id number] [address] [place] [address], [place] [address] 06 Mar, 2013 [facility] [address] [id number] [address] [place] [address], [place] [address] 26 Feb, 2013 [facility] [address] [id number] [address] [place] [address], [place] [address] 26 Sep, 2013 [facility] [address] [id number] [address] [place] [address], [place] [address] 23 Feb, 2013 [facility] [address] [id number] [address] [place] [address], [place] [address] 23 Feb, 2013 [facility] [address] [id number] [address] [place] [address], [place] [address] 19 Feb, 2013 [facility] [address] [id number] [facility] [place] [address] 19 Feb, 2013 [facility] [address] [id number] [facility] [place] [address] 13 Feb, 2014 [facility] [address] [id number] [address] [place] [address], [place] [address] 13 Feb, 2014 [facility] [address] [id number] [address] [place] [address], [place] [address] 12 Feb, 2014 [facility] [address] [id number] [address] [place] [address], [place] [address] 12 Feb, 2014 [facility] [address] [id number] [address] [place] [address], [place] [address] Jan, [facility] [address] [id number] [address] [place] [address], [place] [address] Jan, [facility] [address] [id number] [address] [place] [address], [place] [address] Dec, [facility] [address] [id number] [address] [place] [address], [place] [address] Dec, [facility] [address] [id number] [address] [place] [address], [place] [address] Dec, [facility] [address] [id number] [address] [place] [address], [place] [address] Dec, [facility] [address] [id number] [address] [place] [address], [place] [address] Dec, [facility] [address] [id number] [address] [place] [address], [place] [address] Dec, [facility] [address] [id number] [address] [place] [address], [place] [address] Nov, [facility] [address] [id number] [address] [place] [address], [place] [address] Nov, [facility] [address] [id number] [address] [place] [address], [place] [address] Nov, [facility] [address] [id number] [facility] [place] [address] Nov, [facility] [address] [id number] [facility] [place] [address] October, [facility] [address] [id number] [facility] [place] [address] October, [facility] [address] [id number] [address] [place] [address], [place] [address] October, [facility] [address] [id number] [facility] [place] [address] October, [facility] [address] [id number] [address] [place] [address], [place] [address] October, [facility] [address] [id number] [address] [place] [address], [place] [address] October, [facility] [address] [id number] [address] [place] [address], [place] [address] October, [facility] [address] [id number] [address] [place] [address], [place] [address] October, [facility] [address] [id number] [address] [place] [address], [place] [address] October, [facility] [address] [id number] [address] [place] [address], [place] [address] October, [facility] [address] [id number] [address] [place] [address], [place] [address] October, [facility] [address] [id number] [address] [place] [address], [place] [address] October, [facility] [address] [id number] [address] [place] [address], [place] [address] October, [facility] [address] [id number] [address] [place] [address], [place] [address] October, [facility] [address] [id number] [facility] [place] [address] October, [facility] [address] [id number] [address] [place] [address], [place] [address] October, [facility] [address] [id number] [facility] [place] [address] Sep, [facility] [address] [id number] [address] [place] [address], [place] [address] Sep, [facility] [address] [id number] [address] [place] [address], [place] [address] Sep, [facility] [address] [id number] [address] [place] [address], [place] [address] Sep, [facility] [address] [id number] [address] [place] [address], [place] [address] Sep, [facility] [address] [id number] [address] [place] [address], [place] [address] Sep, [facility] [address] [id number] [address] [place] [address], [place] [address] Aug, [facility] [address] [id number] [address] [place] [address], [place] [address] Aug, [facility] [address] [id number] [address] [place] [address], [place] [address] Aug, [facility] [address] [id number] [address] [place] [address], [place] [address] Aug, [facility] [address] [id number] [address] [place] [address], [place] [address] Aug, [facility] [address] [id number] [address] [place] [address], [place] [address] Aug, [facility] [address] [id number] [address] [place] [address], [place] [address] Jul, [facility] [address] [id number] [address] [place] [address], [place] [address] Jul, [facility] [address] [id number] [address] [place] [address], [place] [address] Jul, [facility] [address] [id number] [address] [place] [address], [place] [address] Jul, [facility] [address] [id number] [address] [place] [address], [place] [address] Jun, [facility] [address] [id number] [address] [place] [address], [place] [address] Jun, [facility] [address] [id number] [address] [place] [address], [place] [address] May, [facility] [address] [id number] [address] [place] [address], [place] [address] May, [facility] [address] [id number] [address] [place] [address], [place] [address] May, [facility] [address] [id number] [address] [place] [address], [place] [address] May, [facility] [address] [id number] [address] [place] [address], [place] [address] May, [facility] [address] [id number] [address] [place] [address], [place] [address] Apr, [facility] [address] [id number] [address] [place] [address], [place] [address] Apr, [facility] [address] [id number] [address] [place] [address], [place] [address] Apr, [facility] [address] [id number] [address] [place] [address], [place] [address] Apr, [facility] [address] [id number] [address] [place] [address], [place] [address] Apr, [facility] [address] [id number] [address] [place] [address], [place] [address] Apr, [facility] [address] [id number] [address] [place] [address] [place] [address] 15 Mar, 2013 [facility] [address] [id number] [address] [place] [address], [place] [address] 15 Mar, 2013 [facility] [address] [id number] [address] [place] [address], [place] [address] 14 Mar, 2013 [facility] [address] [id number] [address] [place] [address], [place] [address] 14 Mar, 2013 [facility] [address] [id number] [address] [place] [address], [place] [address] 11 Mar, 2013 [facility] [address] [id number] [address] [place] [address], [place] [address] 11 Mar, 2013 [facility] [address] [id number] [address] [place] [address], [place] [address] 23 Feb, 2013 [facility] [address] [id number] [address] [place] [address], [place] [address] 19 Feb, 2013 [facility] [address] [id number] [address] [place] [address], [place] [address] 04 Feb, 2013 [facility] [address] [id number] [address] [place] [address], [place] [address] 30 Jan, 2013 [facility] [address] [id number] [address] [place] [address], [place] [address] Jan, [facility] [address] [id number] [address] [place] [address], [place] [address] Jan, [facility] [address] [id number] [address] [place] [address], [place] [address] 16 Jan, 2013 [facility] [address] [id number] [address] [place] [address], [place] [address] Jan, [facility] [address] [id number] [address] [place] [address], [place] [address] Jan, [facility] [address] [id number] [address] [place] [address], [place] [address] Dec, [facility] [address] [id number] [address] [place] [address], [place] [address] Dec, [facility] [address] [id number] [address] [place] [address], [place] [address] Dec, [facility] [address] [id number] [address] [place] [address], [place] [address] Dec, [facility] [address] [id number] [address] [place] [address], [place] [address] Dec, [facility] [address] [id number] [address] [place] [address], [place] [address] Dec, [facility] [address] [id number] [address] [place] [address], [place] [address] Nov, [facility] [address] [id number] [address] [place] [address], [place] [address] Nov, [facility] [address] [id number] [address] [place] [address], [place] [address] Nov, [facility] [address] [id number] [address] [place] [address], [place] [address] Nov, [facility] [address] [id number] [address] [place] [address], [place] [address] Nov, [facility] [address] [id number] [address] [place] [address], [place] [address] Nov, [facility] [address] [address] [id number] [address] [place] [address], [place] [address] October, [facility] [address] [id number] [address] [place] [address], [place] [address] October, [facility] [address] [id number] [address] [place] [address], [place] [address] October, [facility] [address] [id number] [address] [place] [address], [place] [address] October, [facility] [address] [id number] [address] [place] [address], [place] [address] October, [facility] [address] [id number] [address] [place] [address], [place] [address] 30 Sep, 2012 [facility] [address] [id number] [address] [place] [address], [place] [address] 23 Sep, 2012 [facility] [address] [id number] [address] [place] [address], [place] [address] Sep, [facility] [address] [id number] [address] [place] [address], [place] [address] 18 Sep, 2012 [facility] [address] [id number] [address] [place] [address], [place] [address] Sep, [facility] [address] [id number] [address] [place] [address], [place] [address] Aug, [facility] [address] [id number] [address] [place] [address], [place] [address] Aug, [facility] [address] [id number] [address] [place] [address], [place] [address] 04 Aug, 2012 [facility] [address] [id number] [address] [place] [address], [place] [address] Jul, [facility] [address] [id number] [address] [place] [address], [place] [address] Jul, [facility] [address] [id number] [address] [place] [address], [place] [address] Jul, [facility] [address] [id number] [address] [place] [address], [place] [address] 08 Jul, 2012 [facility] [address] [id number] [address] [place] [address], [place] [address] 06 Jul, 2012 [facility] [address] [id number] [address] [place] [address], [place] [address] 05 Jul, 2012 [facility] [address] [id number] [address] [place] [address], [place] [address] 15 Jun, 2012 [facility] [address] [id number] [address] [place] [address], [place] [address] 16 Apr, 2012 [facility] [address] [id number] [address] [place] [address], [place] [address] Apr, [facility] [address] [id number] [address] [place] [address], [place] [address] Apr, [facility] [address] [id number] [address] [place] [address], [place] [address] Apr, [facility] [address] [id number] [address] [place] [address], [place] [address] Mar, [facility] [address] [id number] [address] [place] [address], [place] [address] Mar, [facility] [address] [id number] [address] [place] [address], [place] [address] Mar, [facility] [address] [id number] [address] [place] [address], [place] [address] Mar, [facility] [address] [id number] [address] [place] [address], [place] [address] Mar, [facility] [address] [id number] [address] [place] [address], [place] [address] Feb, [facility] [address] [id number] [address] [place] [address], [place] [address] Jan, [facility] [address] [id number] [address] [place] [address], [place] [address] Jan, [facility] [address] [id number] [address] [place] [address], [place] [address] Jan, [facility] [address] [id number] [address] [place] [address], [place] [address] Dec, [facility] [address] [id number] [address] [place] [address], [place] [address] Nov, [facility] [address] [id number] [address] [place] [address], [place] [address] Nov, [facility] [address] [id number] [address] [place] [address] Nov, [facility] [address] [id number] [address] [place] [address] Nov, [facility] [address] [facility] [id number] [address] [place] [address] Nov, [facility] [address] [id number] [address] [place] [address] October, [facility] [address] [facility] [id number] [address] [place] [address] October, [facility] [address] [facility] [id number] [address] [place] [address] October, [facility] [address] [facility] [id number] [address] [place] [address] October, [facility] [address] [facility] [id number] [address] [place] [address] October, IMMUNIZATIONS No Known Immunizations SOCIAL HISTORY Never Assessed REASON FOR VISIT PLAN OF CARE VITAL SIGNS MEDICATIONS Unknown Medications RESULTS No Results PROCEDURES Procedure Date Ordered Result Body Site COMPLETE CBC W/AUTO DIFF WBC Jul 27, 2014 ASSAY THYROID STIM HORMONE Jul 27, 2014 LIPID PANEL Jul 27, 2014 COMPREHEN METABOLIC PANEL Jul 27, 2014 VENIPUNCT, ROUTINE* Jul 27, 2014 INSTRUCTIONS MEDICATIONS ADMINISTERED No Known Medications [...]
--- OUTSIDE RECORDS SUMMARY | 2020-01-25 07:44 | XMS REPORT ---
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41 Active 277829245 ALLERGIES No Information ENCOUNTERS Encounter Location Date Diagnosis [facility] [address] [facility] [id number] [address] [place] [address] Mar, [facility] [address] [facility] [id number] [address] [place] [address] Mar, [facility] [address] [facility] [id number] [address] [place] [id number] Feb, Other specified disorders of bone density and structure, unspecified site M85.80 [facility] [address] [id number] [address] [place] [phone] Jan, Arthritis M19.90 [facility] [address] [facility] [id number] [address] [place] [address] Dec, Arthritis M19.90 [facility] [address] [facility] [id number] [address] [place] [address] Nov, Inflammatory spondylopathy o f sacral region M46.98 [facility] [address] [facility] [id number] [address] [place] [phone] Nov, [facility] [address] [facility] [id number] [address] [place] [address] Nov, Labyrinthitis of left ear H8 3.02 [facility] [address] [facility] [id number] [address] [place] [address] Nov, Arthritis M19.90 [facility] [address] [facility] [id number] [address] [place] [address] Sep, Arthritis M19.90 [facility] [address] [facility] [id number] [address] [place] [address] Sep, Renal insufficiency N28.9 an d Unspecified kidney failure N19 [facility] [address] [facility] [id number] [address] [place] [address] Sep, Renal insufficiency N28.9 an d Unspecified kidney failure N19 [facility] [address] [facility] [id number] [address] [place] [address] Sep, Arthritis M19.90 [facility] [address] [facility] [id number] [address] [place] [address] Aug, Exercise counseling Z71.82 [facility] [address] [facility] [id number] [address] [place] [address] Aug, [facility] [address] [facility] [id number] [address] [place] [address] Jul, Labyrinthitis of left ear H8 3.02 [facility] [address] [facility] [id number] [address] [place] [address] 22 Jul, 2018 Labyrinthitis of left ear H8 3.02 [facility] [address] [facility] [id number] [address] [place] [address] 19 Jul, 2018 Exercise counseling Z71.82 [place] [address] [facility] [id number] [address] [place] [address] 18 Jul, 2018 [place] [address] [place] [id number] [address] [place] [address] 14 Jul, 2018 Arthritis M19.90 [place] [address] [place] [id number] [address] [place] [address] 13 Jul, 2018 Encounter for Medicare annua l wellness exam Z00.00 ; Chronic kidney disease, stage 4 (severe) N18.4 ; Body mass index (BMI) of 40.0-44.9 in adult Z68.41 ; Hyperparathyroidism E21.3 and BMI 40.0-44.9, adult Z68.41 [place] [id number] [place] [address] 13 Jul, 2018 Encounter for Medicare annua l wellness exam Z00.00 ; Chronic kidney disease, stage 4 (severe) N18.4 ; Hyperparathyroidism E21.3 ; Body mass index (BMI) of 40.0-44.9 in adult Z68.41 and Encounter for immunization Z23 [place] [address] [facility] [id number] [address] [place] [address] 11 Jul, 2018 Tail bone pain M53.3 [place] [address] [facility] [id number] [address] [place] [address] Jun, Exercise counseling Z71.82 [place] [address] [place] [id number] [address] [place] [address] Jun, Labyrinthitis of left ear H8 3.02 [place] [address] [place] [id number] [address] [place] [address] Jun, Tail bone pain M53.3 ; Irrit able bowel syndrome with both constipation and diarrhea K58.2 and Dysfunction of left eustachian tube H69.82 [facility] [address] [id number] [address] [place] [address] Jun, Exercise counseling Z71.82 [facility] [address] [id number] [address] [place] [address] Jun, Arthritis M19.90 [facility] [address] [id number] [address] [place] [address] Jun, Irritable bowel syndrome wit h both constipation and diarrhea K58.2 ; Tail bone pain M53.3 and Dysfunction of left eustachian tube H69.82 [facility] [address] [id number] [address] [place] [address] Jun, Exercise counseling Z71.82 [place] [address] [id number] [address] [place] [address] Jun, Exercise counseling Z71.82 [facility] [address] [id number] [address] [place] [address] Jun, Labyrinthitis of left ear H8 3.02 [facility] [address] [id number] [address] [place] [address] May, Exercise counseling Z71.82 [facility] [address] [id number] [address] [place] [address] May, Arthritis M19.90 [facility] [address] [id number] [address] [place] [address] May, Exercise counseling Z71.82 [place] [address] [id number] [address] [place] [address] May, Exercise counseling Z71.82 [facility] [address] [id number] [address] [place] [address] May, Labyrinthitis of left ear H8 3.02 [facility] [address] [id number] [address] [place] [address] May, Exercise counseling Z71.82 [facility] [address] [id number] [address] [place] [address] Apr, Arthritis M19.90 [facility] [address] [id number] [address] [place] [address] Apr, Exercise counseling Z71.82 [facility] [address] [id number] [address] [place] [address] Apr, Exercise counseling Z71.82 [place] [address] [id number] [address] [place] [address] Apr, Primary osteoarthritis of le ft knee M17.12 [place] [address] [id number] [address] [place] [address] Apr, Labyrinthitis of left ear H8 3.02 [facility] [address] [id number] [address] [place] [address] Mar, Arthritis M19.90 [facility] [address] [id number] [address] [place] [address] Mar, [place] [address] [id number] [address] [place] [address] Mar, Chronic kidney disease, stag e 4 (severe) N18.4 [facility] [address] [id number] [address] [place] [address] Mar, Chronic kidney disease, stag e 4 (severe) N18.4 [facility] [address] [id number] [address] [place] [address] Mar, Labyrinthitis of left ear H8 3.02 [facility] [address] [id number] [address] [place] [address] 05 Mar, 2018 Chronic kidney disease, stag e 4 (severe) N18.4 ; Knee pain, left anterior M25.562 ; 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 and Encounter for immunization Z23 [place] [address] [address] Mar, Arthritis M19.90 [facility] [address] [place] [id number] [address] [place] [address] Feb, Labyrinthitis of left ear H8 3.02 [place] [address] [address] Feb, Arthritis M19.90 [place] [address] [place] [id number] [place] [address] Jan, Labyrinthitis of left ear H8 3.02 [place] [address] [address] Jan, Arthritis M19.90 [place] [address] [address] Dec, Labyrinthitis of left ear H8 3.02 [place] [address] [place] [id number] [address] [place] [address] Nov, Arthritis M19.90 [place] [address] [place] [id number] [place] [address] Nov, Labyrinthitis of left ear H8 3.02 [place] [address] [address] Nov, BMI 40.0-44.9, adult Z68.41 ; Chronic kidney disease, stage 4 (severe) N18.4 and Acute right-sided thoracic back pain M54.6 [place] [address] [place] [id number] [place] [address] October, Labyrinthitis of left ear H8 3.02 and Arthritis M19.90 [place] [address] [place] [id number] [address] [place] [address] Sep, BPV (benign positional verti go), bilateral H81.13 ; Dysfunction of left eustachian tube H69.82 and BMI 40.0-44.9, adult Z68.41 [facility] [address] [place] [id number] [address] [place] [address] Sep, Labyrinthitis of left ear H8 3.02 and Arthritis M19.90 [facility] [address] [place] [id number] [address] [place] [address] Sep, [facility] [address] [facility] [id number] [address] [place] [address] Sep, [facility] [address] [place] [id number] [place] [address] Sep, Chronic kidney disease, stag e 4 (severe) N18.4 [facility] [address] [place] [id number] [address] [place] [address] Sep, Chronic kidney disease, stag e 4 (severe) N18.4 [facility] [address] [facility] [id number] [address] [place] [address] Aug, Labyrinthitis of left ear H8 3.02 and Arthritis M19.90 [facility] [address] [place] [id number] [address] [place] [address] Aug, [facility] [address] [place] [id number] [address] [place] [address] Jul, [facility] [address] [facility] [id number] [address] [place] [address] Jul, Arthritis M19.90 and Labyrin thitis of left ear H83.02 [facility] [address] [place] [id number] [address] [place] [address] Jul, [facility] [address] [place] [id number] [address] [place] [address] Jun, [facility] [address] [place] [id number] [address] [place] [address] Jun, Arthritis M19.90 and Labyrin thitis of left ear H83.02 [place] [address] [address] Jun, Pre-op evaluation Z01.818 ; BMI 40.0-44.9, adult Z68.41 and Encounter for immunization Z23 [place] [address] [address] May, Arthritis M19.90 and Labyrin thitis of left ear H83.02 [place] [address] [address] Apr, Labyrinthitis of left ear H8 3.02 [place] [address] [place] [id number] [place] [address] Apr, Arthritis M19.90 and Labyrin thitis of left ear H83.02 [place] [address] [address] Mar, Arthritis M19.90 and Labyrin thitis of left ear H83.02 [place] [address] [place] [id number] [place] [address] Mar, Chronic kidney disease, stag e 4 (severe) N18.4 [place] [address] [address] Feb, Arthritis M19.90 and Labyrin thitis of left ear H83.02 [place] [address] [place] [id number] [address] [place] [address] Jan, Labyrinthitis of left ear H8 3.02 and 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 [place] [address] [place] [id number] [address] [place] [address] Dec, Arthritis M19.90 [place] [address] [place] [id number] [place] [address] Dec, BPV (benign positional verti go), bilateral H81.13 [facility] [address] [facility] [id number] [address] [place] [address] Dec, [facility] [address] [facility] [id number] [address] [place] [address] Dec, [facility] [address] [facility] [id number] [address] [place] [address] Dec, [facility] [address] [facility] [id number] [address] [place] [address] Nov, Arthritis M19.90 and Deficie ncy 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 [facility] [address] [facility] [id number] [address] [place] [address] Nov, Arthritis M19.90 [facility] [address] [facility] [id number] [address] [place] [address] Nov, Hyperparathyroidism E21.3 [facility] [address] [facility] [id number] [address] [place] [address] October, [facility] [address] [place] [id number] [address] [place] [address] October, Hyperparathyroidism E21.3 [facility] [address] [place] [id number] [address] [place] [address] October, [facility] [address] [facility] [id number] [address] [place] [address] October, Renal insufficiency N28.9 an d Hyperparathyroidism E21.3 [facility] [address] [facility] [id number] [address] [place] [address] October, [facility] [address] [facility] [id number] [address] [place] [address] October, Renal insufficiency N28.9 an d Hyperparathyroidism E21.3 [facility] [address] [facility] [id number] [address] [place] [address] October, Arthritis M19.90 [facility] [address] [facility] [id number] [address] [place] [address] Sep, [facility] [address] [place] [id number] [address] [place] [address] Sep, Lumbar neuritis M54.16 ; Tho racic abscess J86.9 and 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 [facility] [address] [facility] [id number] [address] [place] [address] Sep, [facility] [address] [facility] [id number] [address] [place] [address] Aug, Arthritis M19.90 [facility] [address] [place] [id number] [address] [place] [address] Aug, Hyperparathyroidism E21.3 [facility] [address] [place] [id number] [address] [place] [address] Aug, Hyperparathyroidism E21.3 [facility] [address] [place] [id number] [address] [place] [address] Aug, Arthritis M19.90 [facility] [address] [place] [id number] [address] [place] [address] Jul, Mass of throat R22.1 [facility] [address] [place] [id number] [address] [place] [address] Jul, [facility] [address] [facility] [id number] [address] [place] [address] Jul, Arthritis M19.90 [facility] [address] [facility] [id number] [address] [place] [address] Jun, Arthritis M19.90 [facility] [address] [place] [id number] [address] [place] [address] Jun, [facility] [address] [place] [id number] [address] [place] [address] Jun, Renal insufficiency N28.9 an d 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 [facility] [address] [id number] [address] [place] [address] 05 Jun, 2016 Medicare welcome exam Z00.00 ; Encounter for immunization Z23 ; Arthritis M19.90 ; Medicare annual wellness visit, initial Z00.00 ; Medicare annual wellness visit, subsequent Z00.00 and 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 [facility] [address] [id number] [address] [place] [address] 29 May, 2016 Renal insufficiency N28.9 an d 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 [facility] [address] [facility] [id number] [address] [place] [phone] 19 May, 2016 Renal insufficiency N28.9 [facility] [address] [facility] [id number] [address] [place] [address] 16 May, 2016 Renal insufficiency N28.9 [facility] [address] [facility] [id number] [address] [place] [address] 14 May, 2016 [facility] [address] [facility] [id number] [address] [place] [address] Apr, [facility] [address] [facility] [id number] [address] [place] [phone] Apr, [facility] [address] [facility] [id number] [address] [place] [address] 14 Apr, 2016 Mass of throat R22.1 [facility] [address] [facility] [id number] [address] [place] [address] 10 Apr, 2016 [facility] [address] [facility] [id number] [address] [place] [address] 10 Apr, 2016 Mass of throat R22.1 [facility] [address] [facility] [id number] [address] [place] [address] 04 Apr, 2016 Mass of throat R22.1 [facility] [address] [facility] [id number] [address] [place] [address] 31 Mar, 2016 [facility] [address] [facility] [id number] [address] [place] [address] 31 Mar, 2016 [facility] [address] [id number] [address] [place] [phone] Mar, [facility] [address] [facility] [id number] [address] [place] [address] 24 Mar, 2016 Parathyroid abnormality E21. 5 and Encounter for immunization Z23 [facility] [address] [facility] [id number] [address] [place] [phone] 17 Mar, 2016 [facility] [address] [facility] [id number] [address] [place] [phone] 11 Mar, 2016 [facility] [address] [facility] [id number] [address] [place] [address] 21 Feb, 2016 Renal insufficiency N28.9 an d Hyperparathyroidism E21.3 [facility] [address] [place] [id number] [address] [place] [id number] 19 Feb, 2016 [facility] [address] [facility] [id number] [address] [place] [phone] 15 Feb, 2016 Renal insufficiency N28.9 an d Hyperparathyroidism E21.3 [facility] [address] [facility] [id number] [address] [place] [phone] 14 Feb, 2016 [facility] [address] [place] [id number] [address] [place] [id number] 12 Feb, 2016 [facility] [address] [facility] [id number] [address] [place] [phone] 09 Feb, 2016 [facility] [address] [facility] [id number] [address] [place] [phone] Jan, [facility] [address] [place] [id number] [address] [place] [address] Jan, Arthritis M19.90 ; Lumbago w ith sciatica, right side M54.41 and Other chronic pain G89.29 [facility] [address] [place] [id number] [address] [place] [address] Jan, [facility] [address] [facility] [id number] [address] [place] [address] Dec, Arthritis M19.90 ; Lumbago w ith sciatica, right side M54.41 and Other chronic pain G89.29 [facility] [address] [facility] [id number] [address] [place] [address] 16 Nov, 2015 Deficiency of other specifie d B group vitamins E53.8 ; Primary insomnia F51.01 ; Mood disorder F39 and Lumbago with sciatica, right side M54.41 [place] [address] [facility] [id number] [address] [place] [phone] Nov, Hyperparathyroidism E21.3 [place] [address] [address] [facility] [id number] [address] [place] [phone] Nov, Unspecified kidney failure N 19 and Hyperparathyroidism E21.3 [place] [address] [place] [id number] [address] [place] [phone] October, Hyperparathyroidism E21.3 [place] [address] [facility] [id number] [address] [place] [id number] October, [place] [address] [address] [place] [id number] [address] [place] [phone] October, Hyperparathyroidism E21.3 [place] [address] [place] [id number] [address] [place] [phone] October, Hyperparathyroidism E21.3 [place] [address] [address] [place] [id number] [address] [place] [id number] Sep, Hyperparathyroidism E21.3 ; Hypercholesterolemia E78.0 and Arthritis M19.90 [place] [address] [address] [facility] [id number] [address] [place] [id number] Aug, [place] [address] [address] [facility] [id number] [address] [place] [phone] Aug, Deficiency of other specifie d B group vitamins E53.8 [place] [address] [facility] [id number] [address] [place] [phone] Aug, [facility] [address] [id number] [address] [place] [phone] Jul, Urinary frequency R35.0 [facility] [address] [id number] [address] [place] [phone] Jul, Urinary frequency R35.0 [facility] [address] [facility] [id number] [address] [place] [phone] Jul, [facility] [address] [id number] [address] [place] [phone] Jul, [facility] [address] [facility] [id number] [address] [place] [id number] Jun, Pain in left knee M25.562 [facility] [address] [facility] [id number] [address] [place] [phone] Jun, [facility] [address] [facility] [id number] [address] [place] [phone] May, Swelling of left knee joint M25.462 [facility] [address] [facility] [id number] [address] [place] [phone] May, [facility] [address] [facility] [id number] [address] [place] [id number] May, [facility] [address] [facility] [id number] [address] [place] [phone] May, [facility] [address] [facility] [id number] [address] [place] [address] Apr, Renal insufficiency N28.9 an d Chronic kidney disease, stage 4 (severe) N18.4 [facility] [address] [facility] [id number] [address] [place] [address] Apr, Unspecified kidney failure N 19 [facility] [address] [facility] [id number] [address] [place] [address] Apr, Unspecified kidney failure N 19 [facility] [address] [facility] [id number] [address] [place] [address] Apr, [facility] [address] [facility] [id number] [address] [place] [address] Apr, Hyperparathyroidism, unspeci fied 252.00 [facility] [address] [facility] [id number] [address] [place] [address] Apr, [facility] [address] [facility] [id number] [address] [place] [address] Mar, [facility] [address] [facility] [id number] [address] [place] [address] Mar, [facility] [address] [facility] [id number] [place] [address] Mar, Hyperparathyroidism, unspeci fied 252.00 [facility] [address] [facility] [id number] [address] [place] [address] Feb, [facility] [address] [facility] [id number] [place] [address] Feb, Otalgia 388.70 [facility] [address] [address] Feb, [facility] [address] [facility] [id number] [place] [address] Feb, [facility] [address] [place] [id number] [address] [place] [address] Jan, [facility] [address] [facility] [id number] [address] [place] [address] Jan, Hyperparathyroidism, unspeci fied 252.00 [facility] [address] [address] Jan, [facility] [address] [facility] [id number] [address] [place] [address] Jan, Other B-complex deficiencies 266.2 and Hyperparathyroidism, unspecified 252.00 [facility] [address] [id number] [address] [place] [address] Jan, [facility] [address] [id number] [address] [place] [address] Jan, [facility] [address] [id number] [address] [place] [address] Jan, [facility] [address] [id number] [address] [place] [address] Dec, [facility] [address] [id number] [address] [place] [address] Dec, [facility] [address] [id number] [address] [place] [address] Dec, [facility] [address] [id number] [address] [place] [address] Nov, Routine check-up V70.0 and P re-op exam V72.84 [facility] [address] [id number] [address] [place] [address] Nov, [facility] [address] [id number] [address] [place] [address] Nov, [facility] [address] [id number] [address] [place] [address] October, [facility] [address] [id number] [address] [place] [address] October, Other B-complex deficiencies 266.2 [facility] [address] [id number] [address] [place] [address] October, [facility] [address] [id number] [address] [place] [address] Sep, [facility] [address] [id number] [address] [place] [address] Sep, [facility] [address] [id number] [address] [place] [address] Aug, [facility] [address] [id number] [address] [place] [address], [place] [address] 20 Aug, 2014 [facility] [address] [id number] [address] [place] [address], [place] [address] 17 Aug, 2014 [facility] [address] [id number] [address] [place] [address], [place] [address] 17 Aug, 2014 [facility] [address] [id number] [address] [place] [address], [place] [address] Aug, 2014 [facility] [address] [id number] [address] [place] [address], [place] [address] Aug, [facility] [address] [id number] [address] [place] [address], [place] [address] 18 Jul, 2014 [facility] [address] [id number] [address] [place] [address], [place] [address] 18 Jul, 2014 [facility] [address] [id number] [address] [place] [address], [place] [address] Jul, 2014 [facility] [address] [id number] [address] [place] [address], [place] [address] Jul, 2014 [facility] [address] [id number] [address] [place] [address], [place] [address] Jul, 2014 [facility] [address] [id number] [address] [place] [address], [place] [address] Jul, 2014 [facility] [address] [id number] [address] [place] [address], [place] [address] Jul, 2014 [facility] [address] [id number] [address] [place] [address], [place] [address] Jul, 2014 [facility] [address] [id number] [address] [place] [address], [place] [address] Jul, 2014 [facility] [address] [id number] [address] [place] [address], [place] [address] Jul, 2014 [facility] [address] [id number] [address] [place] [address], [place] [address] Jul, [facility] [address] [id number] [address] [place] [address], [place] [address] Jul, [facility] [address] [id number] [address] [place] [address], [place] [address] Jul, [facility] [address] [id number] [address] [place] [address], [place] [address] Jul, [facility] [address] [id number] [address] [place] [address], [place] [address] Jun, [facility] [address] [id number] [address] [place] [address], [place] [address] Jun, [facility] [address] [id number] [address] [place] [address], [place] [address] Jun, [facility] [address] [id number] [address] [place] [address], [place] [address] Jun, [facility] [address] [id number] [address] [place] [address], [place] [address] Jun, [facility] [address] [id number] [address] [place] [address], [place] [address] Jun, [facility] [address] [id number] [address] [place] [address], [place] [address] Jun, [facility] [address] [id number] [address] [place] [address], [place] [address] Jun, [facility] [address] [id number] [address] [place] [address], [place] [address] Jun, [facility] [address] [id number] [address] [place] [address], [place] [address] Jun, [facility] [address] [id number] [address] [place] [address], [place] [address] Jun, [facility] [address] [id number] [address] [place] [address], [place] [address] Jun, [facility] [address] [id number] [address] [place] [address], [place] [address] Jun, [facility] [address] [id number] [address] [place] [address], [place] [address] Jun, [facility] [address] [id number] [address] [place] [address], [place] [address] May, [facility] [address] [id number] [address] [place] [address], [place] [address] May, [facility] [address] [id number] [address] [place] [address], [place] [address] May, [facility] [address] [id number] [address] [place] [address], [place] [address] May, [facility] [address] [id number] [address] [place] [address], [place] [address] Apr, [facility] [address] [id number] [address] [place] [address], [place] [address] Apr, [facility] [address] [id number] [address] [place] [address], [place] [address] Apr, [facility] [address] [id number] [address] [place] [address], [place] [address] Apr, [facility] [address] [id number] [address] [place] [address], [place] [address] Apr, [facility] [address] [id number] [address] [place] [address], [place] [address] Apr, [facility] [address] [id number] [address] [place] [address], [place] [address] Mar, [facility] [address] [id number] [address] [place] [address], [place] [address] Mar, [facility] [address] [id number] [address] [place] [address], [place] [address] Mar, [facility] [address] [id number] [address] [place] [address], [place] [address] 22 Mar, 2013 [facility] [address] [id number] [address] [place] [address], [place] [address] 15 Mar, 2013 [facility] [address] [id number] [address] [place] [address], [place] [address] 15 Mar, 2013 [facility] [address] [id number] [address] [place] [address], [place] [address] 13 Mar, 2013 [facility] [address] [id number] [address] [place] [address], [place] [address] 13 Mar, 2013 [facility] [address] [id number] [address] [place] [address], [place] [address] 07 Mar, 2013 [facility] [address] [id number] [address] [place] [address], [place] [address] 07 Mar, 2013 [facility] [address] [id number] [address] [place] [address], [place] [address] 07 Mar, 2013 [facility] [address] [id number] [address] [place] [address], [place] [address] 07 Mar, 2013 [facility] [address] [id number] [address] [place] [address], [place] [address] 06 Mar, 2013 [facility] [address] [id number] [address] [place] [address], [place] [address] 26 Feb, 2013 [facility] [address] [id number] [address] [place] [address], [place] [address] 26 Feb, 2013 [facility] [address] [id number] [address] [place] [address], [place] [address] 23 Feb, 2013 [facility] [address] [id number] [address] [place] [address], [place] [address] 23 Feb, 2013 [facility] [address] [id number] [address] [place] [address], [place] [address] 19 Feb, 2013 [facility] [address] [id number] [address] [place] [address], [place] [address] 19 Feb, 2014 [facility] [address] [id number] [facility] [address] 13 Feb, 2014 [facility] [address] [id number] [facility] [address] 13 Feb, 2014 [facility] [address] [id number] [address] [place] [address], [place] [address] 12 Feb, 2014 [facility] [address] [id number] [address] [place] [address], [place] [address] Feb, [facility] [address] [id number] [address] [place] [address], [place] [address] Jan, [facility] [address] [id number] [address] [place] [address], [place] [address] Jan, [facility] [address] [id number] [address] [place] [address], [place] [address] Dec, [facility] [address] [id number] [address] [place] [address], [place] [address] Dec, [facility] [address] [id number] [address] [place] [address], [place] [address] Dec, [facility] [address] [id number] [address] [place] [address], [place] [address] Dec, [facility] [address] [id number] [address] [place] [address], [place] [address] Dec, [facility] [address] [id number] [address] [place] [address], [place] [address] Dec, [facility] [address] [id number] [address] [place] [address], [place] [address] Nov, [facility] [address] [id number] [address] [place] [address], [place] [address] Nov, [facility] [address] [id number] [address] [place] [address], [place] [address] Nov, [facility] [address] [id number] [address] [place] [address], [place] [address] Nov, [facility] [address] [id number] [address] [place] [address], [place] [address] October, [facility] [address] [id number] [address] [place] [address], [place] [address] October, [facility] [address] [id number] [address] [place] [address], [place] [address] October, [facility] [address] [id number] [address] [place] [address], [place] [address] October, [facility] [address] [id number] [address] [place] [address], [place] [address] October, [facility] [address] [id number] [address] [place] [address], [place] [address] October, [facility] [address] [id number] [address] [place] [address], [place] [address] October, [facility] [address] [id number] [address] [place] [address], [place] [address] October, [facility] [address] [id number] [address] [place] [address], [place] [address] October, [facility] [address] [id number] [address] [place] [address], [place] [address] October, [facility] [address] [id number] [address] [place] [address], [place] [address] October, [facility] [address] [id number] [address] [place] [address], [place] [address] October, [facility] [address] [id number] [address] [place] [address], [place] [address] October, [facility] [address] [id number] [address] [place] [address], [place] [address] October, [facility] [address] [id number] [address] [place] [address], [place] [address] October, [facility] [address] [id number] [facility] [address] October, [facility] [address] [id number] [facility] [address] Sep, [facility] [address] [id number] [facility] [address] Sep, [facility] [address] [id number] [address] [place] [address], [place] [address] Sep, [facility] [address] [id number] [address] [place] [address], [place] [address] Sep, [facility] [address] [id number] [address] [place] [address], [place] [address] Sep, [facility] [address] [id number] [address] [place] [address], [place] [address] Sep, [facility] [address] [id number] [address] [place] [address], [place] [address] Aug, [facility] [address] [id number] [address] [place] [address], [place] [address] Aug, [facility] [address] [id number] [address] [place] [address], [place] [address] Aug, [facility] [address] [id number] [address] [place] [address], [place] [address] Aug, [facility] [address] [id number] [address] [place] [address], [place] [address] Aug, [facility] [address] [id number] [address] [place] [address], [place] [address] Aug, [facility] [address] [id number] [address] [place] [address], [place] [address] Jul, [facility] [address] [id number] [address] [place] [address], [place] [address] Jul, [facility] [address] [id number] [address] [place] [address], [place] [address] Jul, [facility] [address] [id number] [address] [place] [address], [place] [address] Jul, [facility] [address] [id number] [address] [place] [address], [place] [address] Jun, [facility] [address] [id number] [address] [place] [address], [place] [address] Jun, [facility] [address] [id number] [address] [place] [address], [place] [address] May, [facility] [address] [id number] [address] [place] [address], [place] [address] May, [facility] [address] [id number] [address] [place] [address], [place] [address] May, [facility] [address] [id number] [address] [place] [address], [place] [address] May, [facility] [address] [id number] [address] [place] [address], [place] [address] May, [facility] [address] [id number] [address] [place] [address], [place] [address] Apr, [facility] [address] [id number] [address] [place] [address], [place] [address] Apr, [facility] [address] [id number] [address] [place] [address], [place] [address] Apr, [facility] [address] [id number] [address] [place] [address] Apr, [facility] [address] [id number] [address] [place] [address], [place] [address] Apr, [facility] [address] [id number] [address] [place] [address], [place] [address] 04 Apr, 2013 [facility] [address] [id number] [address] [place] [address], [place] [address] 15 Mar, 2013 [facility] [address] [id number] [address] [place] [address], [place] [address] 15 Mar, 2013 [facility] [address] [id number] [address] [place] [address], [place] [address] 14 Mar, 2013 [facility] [address] [id number] [address] [place] [address], [place] [address] 14 Mar, 2013 [facility] [address] [id number] [address] [place] [address], [place] [address] 11 Mar, 2013 [facility] [address] [id number] [address] [place] [address], [place] [address] 11 Mar, 2013 [facility] [address] [id number] [address] [place] [address], [place] [address] 23 Feb, 2013 [facility] [address] [id number] [address] [place] [address], [place] [address] Feb, [facility] [address] [id number] [address] [place] [address], [place] [address] 04 Feb, 2013 [facility] [address] [id number] [address] [place] [address], [place] [address] 30 Jan, 2013 [facility] [address] [id number] [address] [place] [address], [place] [address] Jan, [facility] [address] [id number] [address] [place] [address], [place] [address] Jan, [facility] [address] [id number] [address] [place] [address], [place] [address] 16 Jan, 2013 [facility] [address] [id number] [address] [place] [address], [place] [address] Jan, [facility] [address] [id number] [address] [place] [address], [place] [address] Jan, [facility] [address] [id number] [address] [place] [address], [place] [address] Dec, [facility] [address] [id number] [address] [place] [address], [place] [address] Dec, [facility] [address] [id number] [address] [place] [address], [place] [address] Dec, [facility] [address] [id number] [address] [place] [address], [place] [address] Dec, [facility] [address] [id number] [address] [place] [address], [place] [address] Dec, [facility] [address] [id number] [address] [place] [address], [place] [address] Dec, [facility] [address] [id number] [address] [place] [address], [place] [address] Nov, [facility] [address] [id number] [address] [place] [address], [place] [address] Nov, [facility] [address] [id number] [address] [place] [address], [place] [address] Nov, [facility] [address] [id number] [address] [place] [address], [place] [address] Nov, [facility] [address] [id number] [address] [place] [address], [place] [address] Nov, [facility] [address] [id number] [address] [place] [address], [place] [address] Nov, [facility] [address] [id number] [address] [place] [address], [place] [address] October, [facility] [address] [id number] [address] [place] [address], [place] [address] October, [facility] [address] [id number] [address] [place] [address], [place] [address] October, [facility] [address] [id number] [address] [place] [address], [place] [address] October, [facility] [address] [id number] [address] [place] [address], [place] [address] October, [facility] [address] [id number] [address] [place] [address], [place] [address] 30 Sep, 2012 [facility] [address] [id number] [address] [place] [address], [place] [address] 23 Sep, 2012 [facility] [address] [id number] [address] [place] [address], [place] [address] Sep, [facility] [address] [id number] [address] [place] [address], [place] [address] 18 Sep, 2012 [facility] [address] [id number] [address] [place] [address], [place] [address] Sep, [facility] [address] [id number] [address] [place] [address], [place] [address] Aug, [facility] [address] [id number] [address] [place] [address], [place] [address] Aug, [facility] [address] [id number] [address] [place] [address], [place] [address] Aug, [facility] [address] [id number] [address] [place] [address], [place] [address] Jul, [facility] [address] [id number] [address] [place] [address], [place] [address] 20 Jul, 2012 [facility] [address] [id number] [address] [place] [address], [place] [address] Jul, [facility] [address] [id number] [address] [place] [address], [place] [address] 08 Jul, 2012 [facility] [address] [id number] [address] [place] [address], [place] [address] 06 Jul, 2012 [facility] [address] [id number] [address] [place] [address], [place] [address] 05 Jul, 2012 [facility] [address] [id number] [address] [place] [address], [place] [address] 15 Jun, 2012 [facility] [address] [id number] [address] [place] [address], [place] [address] 16 Apr, 2012 [facility] [address] [id number] [address] [place] [address], [place] [address] Apr, [facility] [address] [id number] [address] [place] [address], [place] [address] Apr, [facility] [address] [id number] [address] [place] [address], [place] [address] Apr, [facility] [address] [id number] [address] [place] [address], [place] [address] Mar, [facility] [address] [id number] [address] [place] [address], [place] [address] Mar, [facility] [address] [id number] [address] [place] [address], [place] [address] Mar, [facility] [address] [id number] [address] [place] [address], [place] [address] Mar, [facility] [address] [id number] [address] [place] [address], [place] [address] Mar, [facility] [address] [id number] [address] [place] [address], [place] [address] Feb, [facility] [address] [id number] [address] [place] [address], [place] [address] Jan, [facility] [address] [id number] [address] [place] [address], [place] [address] Jan, [facility] [address] [id number] [address] [place] [address], [place] [address] Jan, [facility] [address] [id number] [address] [place] [address], [place] [address] Dec, [facility] [address] [id number] [address] [place] [address], [place] [address] Nov, [facility] [address] [id number] [address] [place] [address], [place] [address] Nov, [facility] [address] [id number] [address] [place] [address], [place] [address] Nov, [facility] [address] [facility] [id number] [address] [place] [phone] Nov, [facility] [address] [facility] [id number] [address] [place] [phone] Nov, [facility] [address] [facility] [id number] [address] [place] [address] October, [facility] [address] [facility] [id number] [address] [place] [address] October, [facility] [address] [facility] [id number] [address] [place] [phone] October, [facility] [address] [facility] [id number] [address] [place] [id number] October, [facility] [address] [facility] [id number] [address] [place] [id number] October, IMMUNIZATIONS No Known Immunizations SOCIAL HISTORY Never Assessed REASON FOR VISIT PLAN OF CARE VITAL SIGNS MEDICATIONS Unknown Medications RESULTS No Results PROCEDURES Procedure Date Ordered Result Body Site PSYCH DIAGNOSTIC EVALUATION Apr 12, 2014 INSTRUCTIONS MEDICATIONS ADMINISTERED No Known Medications [...]
--- OUTSIDE RECORDS SUMMARY | 2020-01-25 07:44 | XMS REPORT ---
Author Author Velma CORDERO Organization [facility] Address [address] [place] [address] Care Team Providers Care Head Strength And Conditioning Coach Name Role Phone STEPHAN CORDERO Unavailable PROBLEMS Type Condition ICD9-CM Code [id number] Code Onset Dates Condition S tatus SNOMED Code Problem Primary insomnia F51.01 Active 397 2004 Problem Hypercholesteremia E78.0 Active 1 1471557 Problem Corns L84 Active 837232375 Problem Arthritis M19.90 Active 3221325 Problem Hyperparathyroidism E21.3 Active 20541551 Problem 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 Active 10308969 Problem 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 Active 59951132 Problem BPV (benign positional vertigo), bilateral H81.13 Active 612736155 Problem Unspecified kidney failure N19 Act chip 29791371 Problem Myalgia M79.1 Active 53550322 Problem 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 Active 513683012 Problem Mood disorder F39 Active 109314 05 Problem Chronic kidney disease, stage 4 (severe) N18.4 Active 727178335 Problem Primary osteoarthritis of left knee M17.12 Active [id number] Problem Irritable bowel syndrome with both constipation and diarrh ea K58.2 Active 24415125 Problem Body mass index (BMI) of 40.0-44.9 in adult Z68.41 Active [id number] ALLERGIES No Information ENCOUNTERS Encounter Location Date Diagnosis [facility] [address] [facility] [id number] [address] [place] [phone] Mar, [facility] [address] [facility] [id number] [address] [place] [phone] Mar, [facility] [address] [facility] [id number] [address] [place] [phone] Feb, [facility] [address] [facility] [id number] [address] [place] [phone] Feb, Other specified disorders of bone density and structure, unspecified site M85.80 [facility] [address] [id number] [address] [place] [phone] Jan, Arthritis M19.90 [facility] [address] [id number] [address] [place] [phone] Dec, Arthritis M19.90 [facility] [address] [id number] [address] [place] [phone] Nov, Inflammatory spondylopathy o f sacral region M46.98 [facility] [address] [id number] [address] [place] [phone] Nov, [facility] [address] [facility] [id number] [address] [place] [phone] Nov, Labyrinthitis of left ear H8 3.02 [facility] [address] [facility] [id number] [address] [place] [phone] Nov, Arthritis M19.90 [facility] [address] [id number] [address] [place] [phone] Sep, Arthritis M19.90 [facility] [address] [facility] [id number] [address] [place] [phone] Sep, Renal insufficiency N28.9 an d Unspecified kidney failure N19 [facility] [address] [facility] [id number] [address] [place] [phone] Sep, Renal insufficiency N28.9 an d Unspecified kidney failure N19 [facility] [address] [facility] [id number] [address] [place] [phone] Sep, Arthritis M19.90 [facility] [address] [facility] [id number] [address] [place] [phone] Aug, Exercise counseling Z71.82 [facility] [address] [facility] [id number] [address] [place] [phone] Aug, [facility] [address] [facility] [id number] [address] [place] [phone] 27 Jul, 2018 Labyrinthitis of left ear H8 3.02 [place] [address] [facility] [id number] [address] [place] [id number] 22 Jul, 2018 Labyrinthitis of left ear H8 3.02 [place] [address] [facility] [id number] [address] [place] [phone] 19 Jul, 2018 Exercise counseling Z71.82 [place] [address] [facility] [id number] [address] [place] [phone] 18 Jul, 2018 [place] [address] [place] [id number] [place] [phone] 14 Jul, 2018 Arthritis M19.90 [place] [address] [place] [id number] [place] [phone] 13 Jul, 2018 Encounter for Medicare annua l wellness exam Z00.00 ; Chronic kidney disease, stage 4 (severe) N18.4 ; Body mass index (BMI) of 40.0-44.9 in adult Z68.41 ; Hyperparathyroidism E21.3 and BMI 40.0-44.9, adult Z68.41 [place] [address] [place] [id number] [address] [place] [phone] 13 Jul, 2018 Encounter for Medicare annua l wellness exam Z00.00 ; Chronic kidney disease, stage 4 (severe) N18.4 ; Hyperparathyroidism E21.3 ; Body mass index (BMI) of 40.0-44.9 in adult Z68.41 and Encounter for immunization Z23 [place] [address] [facility] [id number] [address] [place] [phone] 11 Jul, 2018 Tail bone pain M53.3 [place] [address] [facility] [id number] [address] [place] [address] Jun, Exercise counseling Z71.82 [place] [address] [place] [id number] [address] [place] [phone] Jun, Labyrinthitis of left ear H8 3.02 [facility] [address] [id number] [address] [place] [phone] Jun, Tail bone pain M53.3 ; Irrit able bowel syndrome with both constipation and diarrhea K58.2 and Dysfunction of left eustachian tube H69.82 [facility] [address] [id number] [address] [place] [phone] Jun, Exercise counseling Z71.82 [facility] [address] [id number] [address] [place] [phone] Jun, Arthritis M19.90 [facility] [address] [id number] [address] [place] [phone] Jun, Irritable bowel syndrome wit h both constipation and diarrhea K58.2 ; Tail bone pain M53.3 and Dysfunction of left eustachian tube H69.82 [facility] [address] [id number] [address] [place] [address] Jun, Exercise counseling Z71.82 [facility] [address] [id number] [address] [place] [phone] Jun, Exercise counseling Z71.82 [facility] [address] [id number] [address] [place] [phone] Jun, Labyrinthitis of left ear H8 3.02 [facility] [address] [id number] [address] [place] [phone] May, Exercise counseling Z71.82 [facility] [address] [id number] [address] [place] [phone] May, Arthritis M19.90 [facility] [address] [id number] [address] [place] [phone] May, Exercise counseling Z71.82 [facility] [address] [id number] [address] [place] [phone] May, Exercise counseling Z71.82 [facility] [address] [id number] [address] [place] [phone] 06 May, 2018 Labyrinthitis of left ear H8 3.02 [facility] [address] [id number] [address] [place] [phone] 03 May, 2018 Exercise counseling Z71.82 [facility] [address] [id number] [address] [place] [phone] Apr, Arthritis M19.90 [facility] [address] [id number] [address] [place] [phone] Apr, Exercise counseling Z71.82 [facility] [address] [id number] [address] [place] [phone] Apr, Exercise counseling Z71.82 [facility] [address] [id number] [address] [place] [phone] Apr, Primary osteoarthritis of le ft knee M17.12 [facility] [address] [id number] [address] [place] [phone] 08 Apr, 2018 Labyrinthitis of left ear H8 3.02 [facility] [address] [id number] [address] [place] [phone] 30 Mar, 2018 Arthritis M19.90 [facility] [address] [id number] [address] [place] [phone] 16 Mar, 2018 [facility] [address] [id number] [address] [place] [phone] Mar, Chronic kidney disease, stag e 4 (severe) N18.4 [facility] [address] [id number] [address] [place] [phone] Mar, Chronic kidney disease, stag e 4 (severe) N18.4 [facility] [address] [id number] [address] [place] [phone] 09 Mar, 2018 Labyrinthitis of left ear H8 3.02 [facility] [address] [id number] [address] [place] [phone] Mar, Chronic kidney disease, stag e 4 (severe) N18.4 ; Knee pain, left anterior M25.562 ; 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 and Encounter for immunization Z23 [facility] [address] [facility] [id number] [address] [place] [phone] Mar, Arthritis M19.90 [facility] [address] [place] [id number] [address] [place] [phone] Feb, Labyrinthitis of left ear H8 3.02 [facility] [address] [place] [id number] [address] [place] [phone] Feb, Arthritis M19.90 [facility] [address] [place] [id number] [address] [place] [phone] Jan, Labyrinthitis of left ear H8 3.02 [facility] [address] [place] [id number] [address] [place] [phone] Jan, Arthritis M19.90 [facility] [address] [place] [id number] [address] [place] [phone] Dec, Labyrinthitis of left ear H8 3.02 [facility] [address] [place] [id number] [address] [place] [phone] Nov, Arthritis M19.90 [facility] [address] [place] [id number] [address] [place] [phone] Nov, Labyrinthitis of left ear H8 3.02 [facility] [address] [facility] [id number] [address] [place] [phone] Nov, BMI 40.0-44.9, adult Z68.41 ; Chronic kidney disease, stage 4 (severe) N18.4 and Acute right-sided thoracic back pain M54.6 [facility] [address] [place] [id number] [address] [place] [phone] October, Labyrinthitis of left ear H8 3.02 and Arthritis M19.90 [facility] [address] [facility] [id number] [address] [place] [phone] Sep, BPV (benign positional verti go), bilateral H81.13 ; Dysfunction of left eustachian tube H69.82 and BMI 40.0-44.9, adult Z68.41 [facility] [address] [facility] [id number] [address] [place] [phone] Sep, Labyrinthitis of left ear H8 3.02 and Arthritis M19.90 [facility] [address] [id number] [address] [place] [phone] Sep, [facility] [address] [facility] [id number] [address] [place] [phone] Sep, [facility] [address] [facility] [id number] [address] [place] [phone] Sep, Chronic kidney disease, stag e 4 (severe) N18.4 [facility] [address] [facility] [id number] [address] [place] [phone] Sep, Chronic kidney disease, stag e 4 (severe) N18.4 [facility] [address] [facility] [id number] [address] [place] [phone] Aug, Labyrinthitis of left ear H8 3.02 and Arthritis M19.90 [facility] [address] [facility] [id number] [address] [place] [phone] Aug, [facility] [address] [facility] [id number] [address] [place] [phone] Jul, [facility] [address] [facility] [id number] [address] [place] [phone] Jul, Arthritis M19.90 and Labyrin thitis of left ear H83.02 [facility] [address] [facility] [id number] [address] [place] [phone] Jul, [facility] [address] [place] [id number] [address] [place] [phone] Jun, [place] [address] [facility] [id number] [address] [place] [phone] Jun, Arthritis M19.90 and Labyrin thitis of left ear H83.02 [place] [address] [place] [id number] [address] [place] [phone] Jun, Pre-op evaluation Z01.818 ; BMI 40.0-44.9, adult Z68.41 and Encounter for immunization Z23 [place] [address] [place] [id number] [address] [place] [phone] May, Arthritis M19.90 and Labyrin thitis of left ear H83.02 [place] [address] [place] [id number] [place] [phone] Apr, Labyrinthitis of left ear H8 3.02 [place] [address] [phone] Apr, Arthritis M19.90 and Labyrin thitis of left ear H83.02 [place] [address] [place] [id number] [address] [place] [phone] Mar, Arthritis M19.90 and Labyrin thitis of left ear H83.02 [place] [address] [place] [id number] [address] [place] [phone] Mar, Chronic kidney disease, stag e 4 (severe) N18.4 [place] [address] [place] [id number] [address] [place] [phone] Feb, Arthritis M19.90 and Labyrin thitis of left ear H83.02 [place] [address] [place] [id number] [address] [place] [phone] Jan, Labyrinthitis of left ear H8 3.02 and 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 [place] [address] [place] [id number] [address] [place] [phone] Dec, Arthritis M19.90 [facility] [address] [facility] [id number] [address] [place] [phone] Dec, BPV (benign positional verti go), bilateral H81.13 [facility] [address] [facility] [id number] [address] [place] [phone] Dec, [facility] [address] [facility] [id number] [address] [place] [phone] Dec, [facility] [address] [facility] [id number] [address] [place] [phone] Dec, [facility] [address] [facility] [id number] [address] [place] [phone] Nov, Arthritis M19.90 and Deficie ncy 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 [facility] [address] [facility] [id number] [address] [place] [phone] Nov, Arthritis M19.90 [facility] [address] [facility] [id number] [address] [place] [phone] Nov, Hyperparathyroidism E21.3 [facility] [address] [facility] [id number] [address] [place] [phone] October, [facility] [address] [facility] [id number] [address] [place] [phone] October, Hyperparathyroidism E21.3 [facility] [address] [facility] [id number] [address] [place] [phone] October, [facility] [address] [facility] [id number] [address] [place] [phone] October, Renal insufficiency N28.9 an d Hyperparathyroidism E21.3 [facility] [address] [facility] [id number] [address] [place] [phone] October, [facility] [address] [facility] [id number] [address] [place] [phone] October, Renal insufficiency N28.9 an d Hyperparathyroidism E21.3 [facility] [address] [facility] [id number] [address] [place] [phone] October, Arthritis M19.90 [facility] [address] [facility] [id number] [address] [place] [phone] Sep, [facility] [address] [facility] [id number] [address] [place] [phone] Sep, Lumbar neuritis M54.16 ; Tho racic abscess J86.9 and 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 [facility] [address] [id number] [address] [place] [phone] Sep, [facility] [address] [facility] [id number] [address] [place] [phone] Aug, Arthritis M19.90 [facility] [address] [facility] [id number] [address] [place] [phone] Aug, Hyperparathyroidism E21.3 [facility] [address] [facility] [id number] [address] [place] [phone] Aug, Hyperparathyroidism E21.3 [facility] [address] [facility] [id number] [address] [place] [phone] Aug, Arthritis M19.90 [facility] [address] [facility] [id number] [address] [place] [phone] Jul, Mass of throat R22.1 [facility] [address] [facility] [id number] [address] [place] [phone] Jul, [facility] [address] [facility] [id number] [address] [place] [phone] Jul, Arthritis M19.90 [facility] [address] [facility] [id number] [address] [place] [phone] Jun, Arthritis M19.90 [facility] [address] [facility] [id number] [address] [place] [phone] Jun, [facility] [address] [facility] [id number] [address] [place] [phone] 09 Jun, 2016 Renal insufficiency N28.9 an d 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 [facility] [address] [facility] [id number] [address] [place] [phone] 05 Jun, 2016 Medicare welcome exam Z00.00 ; Encounter for immunization Z23 ; Arthritis M19.90 ; Medicare annual wellness visit, initial Z00.00 ; Medicare annual wellness visit, subsequent Z00.00 and 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 [facility] [address] [facility] [id number] [address] [place] [phone] 29 May, 2016 Renal insufficiency N28.9 an d 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 [facility] [address] [facility] [id number] [address] [place] [phone] 19 May, 2016 Renal insufficiency N28.9 [facility] [address] [facility] [id number] [address] [place] [phone] May, Renal insufficiency N28.9 [facility] [address] [facility] [id number] [address] [place] [phone] May, [facility] [address] [place] [id number] [address] [place] [phone] Apr, [facility] [address] [place] [id number] [address] [place] [phone] Apr, [facility] [address] [facility] [id number] [address] [place] [phone] Apr, Mass of throat R22.1 [facility] [address] [facility] [id number] [address] [place] [phone] 10 Apr, 2016 [facility] [address] [place] [id number] [address] [place] [phone] 10 Apr, 2016 Mass of throat R22.1 [facility] [address] [facility] [id number] [address] [place] [phone] 04 Apr, 2016 Mass of throat R22.1 [facility] [address] [id number] [address] [place] [phone] Mar, [facility] [address] [id number] [address] [place] [phone] Mar, [facility] [address] [id number] [address] [place] [phone] Mar, [facility] [address] [id number] [address] [place] [phone] Mar, Parathyroid abnormality E21. 5 and Encounter for immunization Z23 [facility] [address] [id number] [address] [place] [phone] Mar, [facility] [address] [id number] [address] [place] [phone] Mar, [facility] [address] [facility] [id number] [address] [place] [phone] 21 Feb, 2016 Renal insufficiency N28.9 an d Hyperparathyroidism E21.3 [facility] [address] [facility] [id number] [address] [place] [phone] 19 Feb, 2016 [facility] [address] [id number] [address] [place] [phone] 15 Feb, 2016 Renal insufficiency N28.9 an d Hyperparathyroidism E21.3 [facility] [address] [facility] [id number] [address] [place] [phone] 14 Feb, 2016 [facility] [address] [facility] [id number] [address] [place] [phone] 12 Feb, 2016 [facility] [address] [id number] [address] [place] [phone] 09 Feb, 2016 [facility] [address] [facility] [id number] [address] [place] [phone] Jan, [facility] [address] [facility] [id number] [address] [place] [phone] Jan, Arthritis M19.90 ; Lumbago w ith sciatica, right side M54.41 and Other chronic pain G89.29 [facility] [address] [id number] [address] [place] [phone] Jan, [facility] [address] [facility] [id number] [address] [place] [phone] Dec, Arthritis M19.90 ; Lumbago w ith sciatica, right side M54.41 and Other chronic pain G89.29 [facility] [address] [facility] [id number] [address] [place] [phone] Nov, Deficiency of other specifie d B group vitamins E53.8 ; Primary insomnia F51.01 ; Mood disorder F39 and Lumbago with sciatica, right side M54.41 [place] [address] [facility] [id number] [address] [place] [phone] Nov, Hyperparathyroidism E21.3 [place] [address] [facility] [id number] [address] [place] [phone] Nov, Unspecified kidney failure N 19 and Hyperparathyroidism E21.3 [place] [address] [facility] [id number] [address] [place] [place] [address] October, Hyperparathyroidism E21.3 [place] [address] [facility] [id number] [address] [place] [address] October, [place] [address] [address] [facility] [id number] [address] [place] [address] October, Hyperparathyroidism E21.3 [place] [address] [address] [facility] [id number] [address] [place] [address] October, Hyperparathyroidism E21.3 [place] [address] [address] [facility] [id number] [address] [place] [address] Sep, Hyperparathyroidism E21.3 ; Hypercholesterolemia E78.0 and Arthritis M19.90 [facility] [address] [facility] [id number] [address] [place] [address] Aug, [place] [address] [address] [facility] [id number] [address] [place] [address] Aug, Deficiency of other specifie d B group vitamins E53.8 [facility] [address] [facility] [id number] [address] [place] [address] Aug, [facility] [address] [facility] [id number] [address] [place] [address] Jul, Urinary frequency R35.0 [facility] [address] [facility] [id number] [address] [place] [address] Jul, Urinary frequency R35.0 [facility] [address] [facility] [id number] [address] [place] [phone] Jul, [facility] [address] [facility] [id number] [address] [place] [address] Jul, [facility] [address] [facility] [id number] [address] [place] [address] Jun, Pain in left knee M25.562 [facility] [address] [facility] [id number] [address] [place] [address] Jun, [facility] [address] [facility] [id number] [address] [place] [address] May, Swelling of left knee joint M25.462 [facility] [address] [facility] [id number] [address] [place] [id number] 16 May, 2015 [facility] [address] [facility] [id number] [address] [place] [address] May, [facility] [address] [facility] [id number] [address] [place] [phone] May, [facility] [address] [facility] [id number] [address] [place] [address] Apr, Renal insufficiency N28.9 an d Chronic kidney disease, stage 4 (severe) N18.4 [facility] [address] [facility] [id number] [address] [place] [address] Apr, Unspecified kidney failure N 19 [facility] [address] [id number] [address] [place] [address] Apr, Unspecified kidney failure N 19 [facility] [address] [id number] [address] [place] [address] Apr, [facility] [address] [id number] [address] [place] [phone] Apr, Hyperparathyroidism, unspeci fied 252.00 [facility] [address] [id number] [address] [place] [address] Apr, [facility] [address] [id number] [address] [place] [phone] Mar, [facility] [address] [id number] [address] [place] [id number] Mar, [facility] [address] [id number] [address] [place] [address] Mar, Hyperparathyroidism, unspeci fied 252.00 [facility] [address] [id number] [address] [place] [address] Feb, [facility] [address] [id number] [address] [place] [address] Feb, Otalgia 388.70 [facility] [address] [id number] [address] [place] [address] Feb, [facility] [address] [id number] [address] [place] [phone] Feb, [facility] [address] [id number] [address] [place] [phone] Jan, [facility] [address] [id number] [address] [place] [address] Jan, Hyperparathyroidism, unspeci fied 252.00 [facility] [address] [id number] [address] [place] [address] Jan, [facility] [address] [id number] [address] [place] [address] Jan, Other B-complex deficiencies 266.2 and Hyperparathyroidism, unspecified 252.00 [facility] [address] [id number] [address] [place] [phone] Jan, [facility] [address] [id number] [address] [place] [phone] Jan, [facility] [address] [id number] [address] [place] [phone] Jan, [facility] [address] [id number] [address] [place] [address] Dec, [facility] [address] [id number] [address] [place] [phone] Dec, [facility] [address] [id number] [address] [place] [phone] Dec, [facility] [address] [id number] [address] [place] [address] Nov, Routine check-up V70.0 and P re-op exam V72.84 [facility] [address] [id number] [address] [place] [id number] Nov, [facility] [address] [id number] [address] [place] [phone] Nov, [facility] [address] [id number] [address] [place] [id number] October, [facility] [address] [id number] [address] [place] [phone] October, Other B-complex deficiencies 266.2 [facility] [address] [id number] [address] [place] [phone] October, [facility] [address] [id number] [address] [place] [phone] Sep, [facility] [address] [id number] [address] [place] [address] Sep, [facility] [address] [id number] [address] [place] [address], [place] [address] Aug, [facility] [address] [id number] [address] [place] [address], [place] [address] 20 Aug, 2014 [facility] [address] [id number] [address] [place] [address], [place] [address] 17 Aug, 2014 [facility] [address] [id number] [address] [place] [address], [place] [address] 17 Aug, 2014 [facility] [address] [id number] [address] [place] [address], [place] [address] Aug, [facility] [address] [id number] [address] [place] [address], [place] [address] Aug, [facility] [address] [id number] [address] [place] [address], [place] [address] 18 Jul, 2014 [facility] [address] [id number] [address] [place] [address], [place] [address] 18 Jul, 2014 [facility] [address] [id number] [address] [place] [address], [place] [address] 17 Jul, 2014 [facility] [address] [id number] [address] [place] [address], [place] [address] 17 Jul, 2014 [facility] [address] [id number] [address] [place] [address], [place] [address] 12 Jul, 2014 [facility] [address] [id number] [address] [place] [address], [place] [address] Jul, 2014 [facility] [address] [id number] [address] [place] [address], [place] [address] 10 Jul, 2014 [facility] [address] [id number] [address] [place] [address], [place] [address] 10 Jul, 2014 [facility] [address] [id number] [address] [place] [address], [place] [address] 09 Jul, 2014 [facility] [address] [id number] [address] [place] [address], [place] [address] Jul, [facility] [address] [id number] [address] [place] [address], [place] [address] Jul, [facility] [address] [id number] [address] [place] [address], [place] [address] Jul, 2014 [facility] [address] [id number] [address] [place] [address], [place] [address] Jul, [facility] [address] [id number] [address] [place] [address], [place] [address] Jul, [facility] [address] [id number] [address] [place] [address], [place] [address] Jun, [facility] [address] [id number] [address] [place] [address], [place] [address] Jun, [facility] [address] [id number] [address] [place] [address], [place] [address] Jun, [facility] [address] [id number] [address] [place] [address], [place] [address] Jun, [facility] [address] [id number] [address] [place] [address], [place] [address] Jun, [facility] [address] [id number] [address] [place] [address], [place] [address] Jun, [facility] [address] [id number] [address] [place] [address], [place] [address] Jun, [facility] [address] [id number] [address] [place] [address], [place] [address] Jun, [facility] [address] [id number] [address] [place] [address], [place] [address] Jun, [facility] [address] [id number] [address] [place] [address], [place] [address] Jun, [facility] [address] [id number] [address] [place] [address], [place] [address] Jun, [facility] [address] [id number] [address] [place] [address], [place] [address] Jun, [facility] [address] [id number] [address] [place] [address], [place] [address] Jun, [facility] [address] [id number] [address] [place] [address], [place] [address] Jun, [facility] [address] [id number] [address] [place] [address], [place] [address] May, [facility] [address] [id number] [address] [place] [address], [place] [address] May, [facility] [address] [id number] [address] [place] [address], [place] [address] May, [facility] [address] [id number] [address] [place] [address], [place] [address] May, [facility] [address] [id number] [address] [place] [address], [place] [address] Apr, [facility] [address] [id number] [address] [place] [address], [place] [address] Apr, [facility] [address] [id number] [address] [place] [address], [place] [address] Apr, [facility] [address] [id number] [address] [place] [address], [place] [address] Apr, [facility] [address] [id number] [address] [place] [address], [place] [address] Apr, [facility] [address] [id number] [address] [place] [address], [place] [address] Apr, [facility] [address] [id number] [address] [place] [address], [place] [address] Mar, [facility] [address] [id number] [address] [place] [address], [place] [address] Mar, [facility] [address] [id number] [address] [place] [address] [place] [address] 22 Mar, 2013 [facility] [address] [id number] [address] [place] [address], [place] [address] 22 Mar, 2014 [facility] [address] [id number] [address] [place] [address], [place] [address] 15 Mar, 2014 [facility] [address] [id number] [address] [place] [address], [place] [address] 15 Mar, 2014 [facility] [address] [id number] [address] [place] [address], [place] [address] 13 Mar, 2014 [facility] [address] [id number] [address] [place] [address], [place] [address] 13 Mar, 2014 [facility] [address] [id number] [address] [place] [address], [place] [address] 07 Mar, 2013 [facility] [address] [id number] [address] [place] [address], [place] [address] 07 Mar, 2013 [facility] [address] [id number] [address] [place] [address], [place] [address] 07 Mar, 2013 [facility] [address] [id number] [address] [place] [address], [place] [address] 07 Mar, 2013 [facility] [address] [id number] [address] [place] [address], [place] [address] 06 Mar, 2013 [facility] [address] [id number] [address] [place] [address], [place] [address] 26 Feb, 2013 [facility] [address] [id number] [address] [place] [address], [place] [address] 26 Sep, 2013 [facility] [address] [id number] [address] [place] [address], [place] [address] 23 Feb, 2013 [facility] [address] [id number] [address] [place] [address], [place] [address] 23 Feb, 2013 [facility] [address] [id number] [address] [place] [address], [place] [address] 19 Feb, 2013 [facility] [address] [id number] [facility] [place] [address] 19 Feb, 2013 [facility] [address] [id number] [facility] [address] 13 Feb, 2014 [facility] [address] [id number] [address] [place] [address], [place] [address] 13 Feb, 2014 [facility] [address] [id number] [address] [place] [address], [place] [address] 12 Feb, 2014 [facility] [address] [id number] [address] [place] [address], [place] [address] 12 Feb, 2014 [facility] [address] [id number] [address] [place] [address], [place] [address] Jan, [facility] [address] [id number] [address] [place] [address], [place] [address] Jan, [facility] [address] [id number] [address] [place] [address], [place] [address] Dec, [facility] [address] [id number] [address] [place] [address], [place] [address] Dec, [facility] [address] [id number] [address] [place] [address], [place] [address] Dec, [facility] [address] [id number] [address] [place] [address], [place] [address] Dec, [facility] [address] [id number] [address] [place] [address], [place] [address] Dec, [facility] [address] [id number] [address] [place] [address], [place] [address] Dec, [facility] [address] [id number] [address] [place] [address], [place] [address] Nov, [facility] [address] [id number] [address] [place] [address], [place] [address] Nov, [facility] [address] [id number] [address] [place] [address], [place] [address] Nov, [facility] [address] [id number] [facility] [address] Nov, [facility] [address] [id number] [facility] [address] October, [facility] [address] [id number] [facility] [address] October, [facility] [address] [id number] [address] [place] [address], [place] [address] October, [facility] [address] [id number] [facility] [address] October, [facility] [address] [id number] [address] [place] [address], [place] [address] October, [facility] [address] [id number] [address] [place] [address], [place] [address] October, [facility] [address] [id number] [address] [place] [address], [place] [address] October, [facility] [address] [id number] [address] [place] [address], [place] [address] October, [facility] [address] [id number] [address] [place] [address], [place] [address] October, [facility] [address] [id number] [address] [place] [address], [place] [address] October, [facility] [address] [id number] [address] [place] [address], [place] [address] October, [facility] [address] [id number] [address] [place] [address], [place] [address] October, [facility] [address] [id number] [address] [place] [address], [place] [address] October, [facility] [address] [id number] [address] [place] [address], [place] [address] October, [facility] [address] [id number] [facility] [address] October, [facility] [address] [id number] [address] [place] [address], [place] [address] October, [facility] [address] [id number] [facility] [address] Sep, [facility] [address] [id number] [address] [place] [address], [place] [address] Sep, [facility] [address] [id number] [address] [place] [address], [place] [address] Sep, [facility] [address] [id number] [address] [place] [address], [place] [address] Sep, [facility] [address] [id number] [address] [place] [address], [place] [address] Sep, [facility] [address] [id number] [address] [place] [address], [place] [address] Sep, [facility] [address] [id number] [address] [place] [address], [place] [address] Aug, [facility] [address] [id number] [address] [place] [address], [place] [address] Aug, [facility] [address] [id number] [address] [place] [address], [place] [address] Aug, [facility] [address] [id number] [address] [place] [address], [place] [address] Aug, [facility] [address] [id number] [address] [place] [address], [place] [address] Aug, [facility] [address] [id number] [address] [place] [address], [place] [address] Aug, [facility] [address] [id number] [address] [place] [address], [place] [address] Jul, [facility] [address] [id number] [address] [place] [address], [place] [address] Jul, [facility] [address] [id number] [address] [place] [address], [place] [address] Jul, [facility] [address] [id number] [address] [place] [address], [place] [address] Jul, [facility] [address] [id number] [address] [place] [address], [place] [address] Jun, [facility] [address] [id number] [address] [place] [address], [place] [address] Jun, [facility] [address] [id number] [address] [place] [address], [place] [address] May, [facility] [address] [id number] [address] [place] [address], [place] [address] May, [facility] [address] [id number] [address] [place] [address], [place] [address] May, [facility] [address] [id number] [address] [place] [address], [place] [address] May, [facility] [address] [id number] [address] [place] [address], [place] [address] May, [facility] [address] [id number] [address] [place] [address], [place] [address] Apr, [facility] [address] [id number] [address] [place] [address], [place] [address] Apr, [facility] [address] [id number] [address] [place] [address], [place] [address] Apr, [facility] [address] [id number] [address] [place] [address], [place] [address] Apr, [facility] [address] [id number] [address] [place] [address], [place] [address] Apr, [facility] [address] [id number] [address] [place] [address], [place] [address] Apr, [facility] [address] [id number] [address] [place] [address] [place] [address] 15 Mar, 2013 [facility] [address] [id number] [address] [place] [address], [place] [address] 15 Mar, 2013 [facility] [address] [id number] [address] [place] [address], [place] [address] 14 Mar, 2013 [facility] [address] [id number] [address] [place] [address], [place] [address] 14 Mar, 2013 [facility] [address] [id number] [address] [place] [address], [place] [address] 11 Mar, 2013 [facility] [address] [id number] [address] [place] [address], [place] [address] 11 Mar, 2013 [facility] [address] [id number] [address] [place] [address], [place] [address] 23 Feb, 2013 [facility] [address] [id number] [address] [place] [address], [place] [address] 19 Feb, 2013 [facility] [address] [id number] [address] [place] [address], [place] [address] 04 Feb, 2013 [facility] [address] [id number] [address] [place] [address], [place] [address] 30 Jan, 2013 [facility] [address] [id number] [address] [place] [address], [place] [address] Jan, [facility] [address] [id number] [address] [place] [address], [place] [address] Jan, [facility] [address] [id number] [address] [place] [address], [place] [address] 16 Jan, 2013 [facility] [address] [id number] [address] [place] [address], [place] [address] Jan, [facility] [address] [id number] [address] [place] [address], [place] [address] Jan, [facility] [address] [id number] [address] [place] [address], [place] [address] Dec, [facility] [address] [id number] [address] [place] [address], [place] [address] Dec, [facility] [address] [id number] [address] [place] [address], [place] [address] Dec, [facility] [address] [id number] [address] [place] [address], [place] [address] Dec, [facility] [address] [id number] [address] [place] [address], [place] [address] Dec, [facility] [address] [id number] [address] [place] [address], [place] [address] Dec, [facility] [address] [id number] [address] [place] [address], [place] [id number] Nov, [facility] [address] [id number] [address] [place] [address], [place] [address] Nov, [facility] [address] [id number] [address] [place] [address], [place] [address] Nov, [facility] [address] [id number] [address] [place] [address], [place] [address] Nov, [facility] [address] [id number] [address] [place] [address], [place] [address] Nov, [facility] [address] [id number] [address] [place] [address], [place] [address] Nov, [facility] [address] [id number] [address] [place] [address], [place] [address] October, [facility] [address] [id number] [address] [place] [address], [place] [address] October, [facility] [address] [id number] [address] [place] [address], [place] [address] October, [facility] [address] [id number] [address] [place] [address], [place] [address] October, [facility] [address] [id number] [address] [place] [address], [place] [address] October, [facility] [address] [id number] [address] [place] [address], [place] [address] 30 Sep, 2012 [facility] [address] [id number] [address] [place] [address], [place] [address] 23 Sep, 2012 [facility] [address] [id number] [address] [place] [address], [place] [address] Sep, [facility] [address] [id number] [address] [place] [address], [place] [address] 18 Sep, 2012 [facility] [address] [id number] [address] [place] [address], [place] [address] Sep, [facility] [address] [id number] [address] [place] [address], [place] [address] Aug, [facility] [address] [id number] [address] [place] [address], [place] [address] Aug, [facility] [address] [id number] [address] [place] [address], [place] [address] 04 Aug, 2012 [facility] [address] [id number] [address] [place] [address], [place] [address] Jul, [facility] [address] [id number] [address] [place] [address], [place] [address] Jul, [facility] [address] [id number] [address] [place] [address], [place] [address] Jul, [facility] [address] [id number] [address] [place] [address], [place] [address] 08 Jul, 2012 [facility] [address] [id number] [address] [place] [address], [place] [address] 06 Jul, 2012 [facility] [address] [id number] [address] [place] [address], [place] [address] 05 Jul, 2012 [facility] [address] [id number] [address] [place] [address], [place] [address] 15 Jun, 2012 [facility] [address] [id number] [address] [place] [address], [place] [address] 16 Apr, 2012 [facility] [address] [id number] [address] [place] [address], [place] [address] Apr, [facility] [address] [id number] [address] [place] [address], [place] [address] Apr, [facility] [address] [id number] [address] [place] [address], [place] [address] Apr, [facility] [address] [id number] [address] [place] [address], [place] [address] Mar, [facility] [address] [id number] [address] [place] [address], [place] [address] Mar, [facility] [address] [id number] [address] [place] [address], [place] [address] Mar, [facility] [address] [id number] [address] [place] [address], [place] [address] Mar, [facility] [address] [id number] [address] [place] [address], [place] [address] Mar, [facility] [address] [id number] [address] [place] [address], [place] [address] Feb, [facility] [address] [id number] [address] [place] [address], [place] [address] Jan, [facility] [address] [id number] [address] [place] [address], [place] [address] Jan, [facility] [address] [id number] [address] [place] [address], [place] [address] Jan, [facility] [address] [id number] [address] [place] [address], [place] [address] Dec, [facility] [address] [id number] [address] [place] [address], [place] [address] Nov, [facility] [address] [id number] [address] [place] [address], [place] [address] Nov, [facility] [place] [facility] [address] [id number] [address] [place] [address] Nov, [facility] [place] [facility] [address] [id number] [address] [place] [address] Nov, [facility] [place] [facility] [address] [id number] [address] [place] [address] Nov, [facility] [place] [facility] [address] [id number] [address] [place] [address] October, [facility] [place] [facility] [address] [id number] [address] [place] [address] October, [facility] [place] [facility] [address] [id number] [address] [place] [phone] October, [facility] [place] [facility] [address] [facility] [id number] [address] [place] [address] October, [facility] [place] [facility] [address] [id number] [address] [place] [address] October, IMMUNIZATIONS No Known Immunizations SOCIAL HISTORY Never Assessed REASON FOR VISIT PLAN OF CARE VITAL SIGNS MEDICATIONS Unknown Medications RESULTS No Results PROCEDURES Procedure Date Ordered Result Body Site X-RAY EXAM OF LOWER SPINE Mar 21, 2014 INSTRUCTIONS MEDICATIONS ADMINISTERED No Known Medications [...]
--- OUTSIDE RECORDS SUMMARY | 2020-01-25 07:45 | XMS REPORT ---
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41 Active 623595176 ALLERGIES No Information ENCOUNTERS Encounter Location Date Diagnosis [facility] [address] [facility] [id number] [address] [place] [phone] Jan, Arthritis M19.90 [facility] [address] [facility] [id number] [address] [place] [phone] Dec, Arthritis M19.90 [facility] [address] [facility] [id number] [address] [place] [phone] Nov, Inflammatory spondylopathy o f sacral region M46.98 [facility] [address] [id number] [address] [place] [id number] Nov, [facility] [address] [id number] [address] [place] [phone] 14 Nov, 2018 Labyrinthitis of left ear H8 3.02 [facility] [address] [id number] [address] [place] [id number] 03 Nov, 2018 Arthritis M19.90 [facility] [address] [id number] [address] [place] [id number] 15 Sep, 2018 Arthritis M19.90 [facility] [address] [id number] [address] [place] [id number] 08 Sep, 2018 Renal insufficiency N28.9 an d Unspecified kidney failure N19 [facility] [address] [id number] [address] [place] [phone] Sep, Renal insufficiency N28.9 an d Unspecified kidney failure N19 [facility] [address] [id number] [address] [place] [id number] Sep, Arthritis M19.90 [facility] [address] [id number] [address] [place] [phone] Aug, Exercise counseling Z71.82 [facility] [address] [facility] [id number] [address] [place] [phone] Aug, [facility] [address] [id number] [address] [place] [id number] Jul, Labyrinthitis of left ear H8 3.02 [facility] [address] [id number] [address] [place] [id number] Jul, Labyrinthitis of left ear H8 3.02 [facility] [address] [id number] [address] [place] [id number] Jul, Exercise counseling Z71.82 [facility] [address] [id number] [address] [place] [id number] 18 Jul, 2018 [place] [id number] [facility] [id number] [address] [place] [id number] 14 Jul, 2018 Arthritis M19.90 [place] [address] [facility] [id number] [address] [place] [id number] 13 Jul, 2018 Encounter for Medicare annua l wellness exam Z00.00 ; Chronic kidney disease, stage 4 (severe) N18.4 ; Body mass index (BMI) of 40.0-44.9 in adult Z68.41 ; Hyperparathyroidism E21.3 and BMI 40.0-44.9, adult Z68.41 [place] [address] [facility] [id number] [address] [place] [id number] 13 Jul, 2018 Encounter for Medicare annua l wellness exam Z00.00 ; Chronic kidney disease, stage 4 (severe) N18.4 ; Hyperparathyroidism E21.3 ; Body mass index (BMI) of 40.0-44.9 in adult Z68.41 and Encounter for immunization Z23 [place] [address] [place] [id number] [address] [place] [id number] 11 Jul, 2018 Tail bone pain M53.3 [place] [address] [place] [id number] [address] [place] [phone] Jun, Exercise counseling Z71.82 [place] [address] [place] [id number] [address] [place] [phone] Jun, Labyrinthitis of left ear H8 3.02 [place] [address] [facility] [id number] [address] [place] [phone] Jun, Tail bone pain M53.3 ; Irrit able bowel syndrome with both constipation and diarrhea K58.2 and Dysfunction of left eustachian tube H69.82 [place] [address] [facility] [id number] [address] [place] [address] Jun, Exercise counseling Z71.82 [place] [address] [place] [id number] [address] [place] [phone] Jun, Arthritis M19.90 [facility] [address] [id number] [address] [place] [phone] Jun, Irritable bowel syndrome wit h both constipation and diarrhea K58.2 ; Tail bone pain M53.3 and Dysfunction of left eustachian tube H69.82 [facility] [address] [id number] [address] [place] [phone] Jun, Exercise counseling Z71.82 [facility] [address] [id number] [address] [place] [phone] Jun, Exercise counseling Z71.82 [facility] [address] [id number] [address] [place] [phone] Jun, Labyrinthitis of left ear H8 3.02 [facility] [address] [id number] [address] [place] [phone] May, Exercise counseling Z71.82 [facility] [address] [id number] [address] [place] [phone] May, Arthritis M19.90 [facility] [address] [id number] [address] [place] [phone] May, Exercise counseling Z71.82 [facility] [address] [id number] [address] [place] [phone] May, Exercise counseling Z71.82 [facility] [address] [id number] [address] [place] [phone] May, Labyrinthitis of left ear H8 3.02 [facility] [address] [id number] [address] [place] [phone] May, Exercise counseling Z71.82 [facility] [address] [id number] [address] [place] [id number] Apr, Arthritis M19.90 [facility] [address] [id number] [address] [place] [id number] Apr, Exercise counseling Z71.82 [place] [id number] [facility] [id number] [address] [place] [phone] Apr, Exercise counseling Z71.82 [facility] [address] [place] [id number] [address] [place] [id number] 08 Apr, 2018 Primary osteoarthritis of le ft knee M17.12 [place] [address] [place] [id number] [address] [place] [phone] Apr, Labyrinthitis of left ear H8 3.02 [place] [address] [facility] [id number] [address] [place] [phone] Mar, Arthritis M19.90 [place] [address] [place] [id number] [place] [phone] Mar, [place] [address] [phone] Mar, Chronic kidney disease, stag e 4 (severe) N18.4 [place] [address] [place] [id number] [address] [place] [phone] Mar, Chronic kidney disease, stag e 4 (severe) N18.4 [place] [address] [place] [id number] [address] [place] [phone] Mar, Labyrinthitis of left ear H8 3.02 [place] [address] [phone] Mar, Chronic kidney disease, stag e 4 (severe) N18.4 ; Knee pain, left anterior M25.562 ; 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 and Encounter for immunization Z23 [place] [address] [place] [id number] [address] [place] [phone] Mar, Arthritis M19.90 [place] [address] [place] [id number] [address] [place] [phone] Feb, Labyrinthitis of left ear H8 3.02 [place] [address] [place] [id number] [address] [place] [id number] Feb, Arthritis M19.90 [facility] [address] [place] [id number] [address] [place] [phone] Jan, Labyrinthitis of left ear H8 3.02 [place] [address] [place] [id number] [address] [place] [id number] Jan, Arthritis M19.90 [facility] [address] [place] [id number] [address] [place] [phone] Dec, Labyrinthitis of left ear H8 3.02 [place] [address] [place] [id number] [place] [id number] Nov, Arthritis M19.90 [place] [address] [place] [id number] [place] [phone] Nov, Labyrinthitis of left ear H8 3.02 [place] [address] [place] [id number] [place] [phone] Nov, BMI 40.0-44.9, adult Z68.41 ; Chronic kidney disease, stage 4 (severe) N18.4 and Acute right-sided thoracic back pain M54.6 [place] [address] [place] [id number] [address] [place] [id number] October, Labyrinthitis of left ear H8 3.02 and Arthritis M19.90 [place] [address] [place] [id number] [address] [place] [phone] Sep, BPV (benign positional verti go), bilateral H81.13 ; Dysfunction of left eustachian tube H69.82 and BMI 40.0-44.9, adult Z68.41 [place] [address] [place] [id number] [address] [place] [id number] Sep, Labyrinthitis of left ear H8 3.02 and Arthritis M19.90 [place] [address] [place] [id number] [address] [place] [phone] Sep, [facility] [address] [facility] [id number] [address] [place] [phone] Sep, [facility] [address] [facility] [id number] [address] [place] [phone] Sep, Chronic kidney disease, stag e 4 (severe) N18.4 [facility] [address] [place] [id number] [address] [place] [id number] Sep, Chronic kidney disease, stag e 4 (severe) N18.4 [facility] [address] [facility] [id number] [address] [place] [phone] Aug, Labyrinthitis of left ear H8 3.02 and Arthritis M19.90 [place] [address] [place] [id number] [address] [place] [id number] Aug, [facility] [address] [place] [id number] [address] [place] [phone] Jul, [place] [address] [place] [id number] [address] [place] [id number] Jul, Arthritis M19.90 and Labyrin thitis of left ear H83.02 [place] [address] [place] [id number] [address] [place] [phone] Jul, [place] [id number] [place] [phone] Jun, [place] [address] [place] [id number] [address] [place] [phone] Jun, Arthritis M19.90 and Labyrin thitis of left ear H83.02 [place] [address] [place] [id number] [address] [place] [phone] 09 Jun, 2017 Pre-op evaluation Z01.818 ; BMI 40.0-44.9, adult Z68.41 and Encounter for immunization Z23 [facility] [address] [place] [id number] [address] [place] [id number] May, Arthritis M19.90 and Labyrin thitis of left ear H83.02 [place] [address] [place] [id number] [address] [place] [phone] Apr, Labyrinthitis of left ear H8 3.02 [facility] [address] [place] [id number] [address] [place] [phone] Apr, Arthritis M19.90 and Labyrin thitis of left ear H83.02 [place] [address] [place] [id number] [address] [place] [phone] Mar, Arthritis M19.90 and Labyrin thitis of left ear H83.02 [place] [address] [place] [id number] [place] [phone] 05 Mar, 2017 Chronic kidney disease, stag e 4 (severe) N18.4 [place] [address] [place] [id number] [place] [phone] Feb, Arthritis M19.90 and Labyrin thitis of left ear H83.02 [place] [address] [place] [id number] [address] [place] [phone] Jan, Labyrinthitis of left ear H8 3.02 and 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 [place] [address] [place] [id number] [address] [place] [id number] Dec, Arthritis M19.90 [place] [address] [place] [id number] [address] [place] [phone] Dec, BPV (benign positional verti go), bilateral H81.13 [place] [address] [place] [id number] [place] [phone] Dec, [place] [address] [place] [id number] [address] [place] [phone] Dec, [place] [address] [address] Dec, [facility] [address] [facility] [id number] [address] [place] [address] Nov, Arthritis M19.90 and Deficie ncy 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 [facility] [address] [id number] [address] [place] [phone] Nov, Arthritis M19.90 [facility] [address] [id number] [address] [place] [id number] Nov, Hyperparathyroidism E21.3 [facility] [address] [facility] [id number] [address] [place] [phone] October, [facility] [address] [facility] [id number] [address] [place] [id number] October, Hyperparathyroidism E21.3 [facility] [address] [facility] [id number] [address] [place] [phone] October, [facility] [address] [facility] [id number] [address] [place] [phone] October, Renal insufficiency N28.9 an d Hyperparathyroidism E21.3 [facility] [address] [facility] [id number] [address] [place] [id number] October, [facility] [address] [facility] [id number] [address] [place] [phone] October, Renal insufficiency N28.9 an d Hyperparathyroidism E21.3 [facility] [address] [facility] [id number] [address] [place] [phone] October, Arthritis M19.90 [facility] [address] [facility] [id number] [address] [place] [phone] Sep, [facility] [address] [facility] [id number] [address] [place] [address] Sep, Lumbar neuritis M54.16 ; Tho racic abscess J86.9 and 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 [facility] [address] [id number] [address] [place] [phone] Sep, [facility] [address] [id number] [address] [place] [phone] Aug, Arthritis M19.90 [facility] [address] [facility] [id number] [address] [place] [phone] Aug, Hyperparathyroidism E21.3 [facility] [address] [facility] [id number] [address] [place] [phone] Aug, Hyperparathyroidism E21.3 [facility] [address] [facility] [id number] [address] [place] [id number] Aug, Arthritis M19.90 [facility] [address] [facility] [id number] [address] [place] [phone] Jul, Mass of throat R22.1 [facility] [address] [facility] [id number] [address] [place] [phone] Jul, [facility] [address] [facility] [id number] [address] [place] [phone] Jul, Arthritis M19.90 [facility] [address] [facility] [id number] [address] [place] [phone] Jun, Arthritis M19.90 [facility] [address] [facility] [id number] [address] [place] [phone] Jun, [facility] [address] [facility] [id number] [address] [place] [phone] Jun, Renal insufficiency N28.9 an d 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 [facility] [address] [facility] [id number] [address] [place] [phone] 05 Jun, 2016 Medicare welcome exam Z00.00 ; Encounter for immunization Z23 ; Arthritis M19.90 ; Medicare annual wellness visit, initial Z00.00 ; Medicare annual wellness visit, subsequent Z00.00 and 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 [facility] [address] [facility] [id number] [address] [place] [id number] May, Renal insufficiency N28.9 an d 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 [facility] [address] [facility] [id number] [address] [place] [phone] May, Renal insufficiency N28.9 [facility] [address] [facility] [id number] [address] [place] [phone] May, Renal insufficiency N28.9 [facility] [address] [facility] [id number] [address] [place] [phone] 14 May, 2016 [facility] [address] [facility] [id number] [address] [place] [phone] Apr, [facility] [address] [facility] [id number] [address] [place] [id number] 16 Apr, 2016 [facility] [address] [facility] [id number] [address] [place] [phone] 14 Apr, 2016 Mass of throat R22.1 [facility] [address] [facility] [id number] [address] [place] [phone] 10 Apr, 2016 [facility] [address] [facility] [id number] [address] [place] [phone] 10 Apr, 2016 Mass of throat R22.1 [facility] [address] [facility] [id number] [address] [place] [phone] 04 Apr, 2016 Mass of throat R22.1 [facility] [address] [facility] [id number] [address] [place] [phone] Mar, [facility] [address] [facility] [id number] [address] [place] [phone] Mar, [facility] [address] [facility] [id number] [address] [place] [phone] Mar, [facility] [address] [facility] [id number] [address] [place] [phone] 24 Mar, 2016 Parathyroid abnormality E21. 5 and Encounter for immunization Z23 [facility] [address] [facility] [id number] [address] [place] [phone] 17 Mar, 2016 [facility] [address] [id number] [address] [place] [phone] Mar, [facility] [address] [id number] [address] [place] [phone] 21 Feb, 2016 Renal insufficiency N28.9 an d Hyperparathyroidism E21.3 [facility] [address] [id number] [address] [place] [id number] 19 Feb, 2016 [facility] [address] [id number] [address] [place] [phone] 15 Feb, 2016 Renal insufficiency N28.9 an d Hyperparathyroidism E21.3 [facility] [address] [facility] [id number] [address] [place] [phone] 14 Feb, 2016 [facility] [address] [id number] [address] [place] [id number] 12 Feb, 2016 [facility] [address] [facility] [id number] [address] [place] [id number] 09 Feb, 2016 [facility] [address] [id number] [address] [place] [phone] Jan, [facility] [address] [facility] [id number] [address] [place] [phone] Jan, Arthritis M19.90 ; Lumbago w ith sciatica, right side M54.41 and Other chronic pain G89.29 [facility] [address] [facility] [id number] [address] [place] [phone] Jan, [facility] [address] [facility] [id number] [address] [place] [phone] Dec, Arthritis M19.90 ; Lumbago w ith sciatica, right side M54.41 and Other chronic pain G89.29 [facility] [address] [facility] [id number] [address] [place] [id number] 16 Nov, 2015 Deficiency of other specifie d B group vitamins E53.8 ; Primary insomnia F51.01 ; Mood disorder F39 and Lumbago with sciatica, right side M54.41 [facility] [id number] [place] [phone] Nov, Hyperparathyroidism E21.3 [facility] [address] [place] [id number] [address] [place] [phone] Nov, Unspecified kidney failure N 19 and Hyperparathyroidism E21.3 [facility] [address] [place] [id number] [place] [phone] October, Hyperparathyroidism E21.3 [facility] [address] [place] [id number] [place] [phone] October, [facility] [address] [id number] October, Hyperparathyroidism E21.3 [facility] [address] [phone] October, Hyperparathyroidism E21.3 [facility] [address] [place] [id number] [address] [place] [phone] Sep, Hyperparathyroidism E21.3 ; Hypercholesterolemia E78.0 and Arthritis M19.90 [facility] [id number] [place] [phone] Aug, [facility] [address] [id number] Aug, Deficiency of other specifie d B group vitamins E53.8 [facility] [address] [id number] [address] [place] [phone] Aug, [facility] [address] [phone] Jul, Urinary frequency R35.0 [facility] [address] [place] [id number] [address] [place] [phone] Jul, Urinary frequency R35.0 [facility] [address] [place] [id number] [address] [place] [phone] Jul, [facility] [address] [id number] [address] [place] [id number] Jul, [facility] [address] [id number] [address] [place] [phone] Jun, Pain in left knee M25.562 [facility] [address] [id number] [address] [place] [phone] Jun, [facility] [address] [id number] [address] [place] [id number] May, Swelling of left knee joint M25.462 [facility] [address] [id number] [address] [place] [phone] May, [facility] [address] [facility] [id number] [address] [place] [phone] May, [facility] [address] [facility] [id number] [address] [place] [phone] May, [facility] [address] [facility] [id number] [address] [place] [phone] Apr, Renal insufficiency N28.9 an d Chronic kidney disease, stage 4 (severe) N18.4 [facility] [address] [facility] [id number] [address] [place] [address] Apr, Unspecified kidney failure N 19 [facility] [address] [facility] [id number] [address] [place] [address] Apr, Unspecified kidney failure N 19 [facility] [address] [facility] [id number] [address] [place] [address] Apr, [facility] [address] [facility] [id number] [address] [place] [address] Apr, Hyperparathyroidism, unspeci fied 252.00 [facility] [address] [facility] [id number] [address] [place] [address] Apr, [facility] [address] [id number] [address] [place] [address] Mar, [facility] [address] [id number] [address] [place] [address] Mar, [facility] [address] [id number] [address] [place] [address] Mar, Hyperparathyroidism, unspeci fied 252.00 [facility] [address] [id number] [address] [place] [id number] Feb, [facility] [address] [id number] [address] [place] [address] Feb, Otalgia 388.70 [facility] [address] [id number] [address] [place] [address] Feb, [facility] [address] [facility] [id number] [address] [place] [address] Feb, [facility] [address] [id number] [address] [place] [address] Jan, [facility] [address] [id number] [address] [place] [address] Jan, Hyperparathyroidism, unspeci fied 252.00 [facility] [address] [id number] [address] [place] [address] Jan, [facility] [address] [id number] [address] [place] [address] Jan, Other B-complex deficiencies 266.2 and Hyperparathyroidism, unspecified 252.00 [facility] [address] [id number] [address] [place] [address] Jan, [facility] [address] [id number] [address] [place] [address] Jan, [facility] [address] [id number] [address] [place] [address] Jan, [facility] [address] [id number] [address] [place] [address] Dec, [facility] [address] [id number] [address] [place] [id number] Dec, [facility] [address] [id number] [address] [place] [address] Dec, [facility] [address] [id number] [address] [place] [id number] Nov, Routine check-up V70.0 and P re-op exam V72.84 [facility] [address] [id number] [address] [place] [address] Nov, [facility] [address] [id number] [address] [place] [address] Nov, [facility] [address] [id number] [address] [place] [address] October, [facility] [address] [id number] [address] [place] [address] October, Other B-complex deficiencies 266.2 [facility] [address] [id number] [address] [place] [address] October, [facility] [address] [id number] [address] [place] [id number] Sep, [facility] [address] [id number] [address] [place] [address] Sep, [facility] [address] [id number] [address] [place] [address] Aug, [facility] [address] [id number] [address] [place] [address] Aug, [facility] [address] [id number] [address] [place] [address] Aug, [facility] [address] [id number] [address] [place] [address] Aug, [facility] [address] [id number] [address] [place] [phone] Aug, 2014 [facility] [address] [id number] [address] [place] [address], [place] [address] Aug, 2014 [facility] [address] [id number] [address] [place] [address], [place] [address] Jul, 2014 [facility] [address] [id number] [address] [place] [address], [place] [address] Jul, 2014 [facility] [place] [facility] [address] [id number] [address] [place] [address], [place] [address] Jul, 2014 [facility] [place] [address] [id number] [address] [place] [address], [place] [address] Jul, 2014 [facility] [place] [facility] [address] [id number] [address] [place] [address], [place] [address] Jul, 2014 [facility] [place] [facility] [address] [id number] [address] [place] [address], [place] [address] Jul, 2014 [facility] [place] [address] [id number] [address] [place] [address], [place] [address] Jul, 2014 [facility] [place] [facility] [address] [id number] [address] [place] [address], [place] [address] Jul, 2014 [facility] [address] [id number] [address] [place] [address], [place] [address] Jul, 2014 [facility] [place] [address] [id number] [address] [place] [address], [place] [address] Jul, 2014 [facility] [address] [id number] [address] [place] [address], [place] [address] Jul, 2014 [facility] [address] [id number] [address] [place] [address], [place] [address] Jul, 2014 [facility] [address] [id number] [address] [place] [id number] Jul, 2014 [facility] [place] [address] [id number] [address] [place] [address] [address] Jul, [facility] [address] [id number] [address] [place] [address], [place] [address] Jun, [facility] [address] [id number] [address] [place] [address], [place] [address] Jun, [facility] [address] [id number] [address] [place] [address], [place] [address] Jun, [facility] [address] [id number] [address] [place] [address], [place] [address] Jun, [facility] [address] [id number] [address] [place] [address], [place] [address] Jun, [facility] [address] [id number] [address] [place] [address], [place] [address] Jun, [facility] [address] [id number] [address] [place] [address], [place] [address] Jun, [facility] [address] [id number] [address] [place] [address], [place] [address] Jun, [facility] [address] [id number] [address] [place] [address], [place] [address] Jun, [facility] [address] [id number] [address] [place] [address], [place] [address] Jun, [facility] [address] [id number] [address] [place] [address], [place] [address] Jun, [facility] [address] [id number] [address] [place] [address] Jun, [facility] [address] [id number] [address] [place] [address], [place] [address] Jun, [facility] [address] [id number] [address] [place] [address], [place] [address] Jun, [facility] [address] [id number] [address] [place] [address], [place] [address] May, [facility] [address] [id number] [address] [place] [address], [place] [address] 15 May, 2014 [facility] [address] [id number] [address] [place] [address], [place] [address] May, [facility] [place] [address] [id number] [address] [place] [address], [place] [address] May, [facility] [address] [id number] [address] [place] [address], [place] [address] Apr, [facility] [place] [address] [id number] [address] [place] [address], [place] [address] Apr, [facility] [address] [id number] [address] [place] [address], [place] [address] Apr, [facility] [address] [id number] [address] [place] [address], [place] [address] Apr, [facility] [address] [id number] [address] [place] [address], [place] [address] Apr, [facility] [address] [id number] [address] [place] [address], [place] [address] Apr, [facility] [address] [id number] [address] [place] [address], [place] [address] Mar, [facility] [address] [id number] [address] [place] [address], [place] [address] Mar, [facility] [address] [id number] [address] [place] [address], [place] [address] Mar, [facility] [address] [id number] [address] [place] [address], [place] [address] Mar, [facility] [place] [address] [id number] [address] [place] [address], [place] [address] Mar, [facility] [place] [address] [id number] [address] [place] [address], [place] [address] Mar, [facility] [place] [facility] [address] [id number] [address] [place] [address], [place] [address] Mar, [facility] [place] [facility] [address] [id number] [address] [place] [address], [place] [address] 13 Mar, 2013 [facility] [address] [id number] [address] [place] [address], [place] [address] Mar, 2013 [facility] [address] [id number] [address] [place] [address], [place] [address] Mar, 2013 [facility] [address] [id number] [address] [place] [address], [place] [address] Mar, 2013 [facility] [address] [id number] [address] [place] [address], [place] [address] Mar, 2013 [facility] [address] [id number] [address] [place] [address], [place] [address] Mar, [facility] [address] [id number] [address] [place] [address], [place] [address] 26 Feb, 2013 [facility] [address] [id number] [address] [place] [address], [place] [address] 26 Feb, 2013 [facility] [address] [id number] [address] [place] [address], [place] [address] 23 Feb, 2013 [facility] [address] [id number] [address] [place] [address], [place] [address] 23 Feb, 2013 [facility] [address] [id number] [address] [place] [address], [place] [address] 19 Feb, 2013 [facility] [address] [id number] [address] [place] [address], [place] [address] 19 Feb, 2013 [facility] [address] [id number] [address] [place] [address], [place] [address] 13 Feb, 2013 [facility] [address] [id number] [address] [place] [address], [place] [address] 13 Feb, 2013 [facility] [address] [id number] [address] [place] [address], [place] [address] 12 Feb, 2013 [facility] [address] [id number] [address] [place] [address], [place] [address] Feb, [facility] [address] [id number] [address] [place] [address], [place] [address] Jan, [facility] [address] [id number] [address] [place] [address], [place] [address] Jan, [facility] [address] [id number] [address] [place] [address], [place] [address] Dec, [facility] [address] [id number] [address] [place] [address], [place] [address] Dec, [facility] [address] [id number] [address] [place] [address], [place] [address] Dec, [facility] [address] [id number] [address] [place] [address], [place] [address] Dec, [facility] [address] [id number] [address] [place] [address], [place] [address] Dec, [facility] [address] [id number] [address] [place] [address], [place] [address] Dec, [facility] [address] [id number] [address] [place] [address], [place] [address] Nov, [facility] [address] [id number] [address] [place] [address], [place] [address] Nov, [facility] [address] [id number] [address] [place] [address], [place] [address] Nov, [facility] [address] [id number] [address] [place] [address], [place] [address] Nov, [facility] [place] [facility] [address] [id number] [address] [place] [address], [place] [address] October, [facility] [place] [facility] [address] [id number] [address] [place] [address], [place] [address] October, [facility] [place] [facility] [address] [id number] [address] [place] [address], [place] [address] October, [facility] [place] [facility] [address] [id number] [facility] [place] [address] October, [facility] [address] [id number] [facility] [place] [address] October, [facility] [address] [id number] [facility] [place] [address] October, [facility] [address] [id number] [address] [place] [address], [place] [address] October, [facility] [address] [id number] [address] [place] [address], [place] [address] October, [facility] [address] [id number] [address] [place] [address], [place] [address] October, [facility] [address] [id number] [address] [place] [address], [place] [address] October, [facility] [address] [id number] [address] [place] [address], [place] [address] October, [facility] [address] [id number] [address] [place] [address], [place] [address] October, [facility] [address] [id number] [address] [place] [address], [place] [address] October, [facility] [address] [id number] [address] [place] [address], [place] [address] October, [facility] [address] [id number] [address] [place] [address], [place] [address] October, [facility] [address] [id number] [address] [place] [address], [place] [address] October, [facility] [address] [id number] [address] [place] [address], [place] [address] Sep, [facility] [address] [id number] [address] [place] [address], [place] [address] Sep, [facility] [address] [id number] [address] [place] [address], [place] [address] Sep, [facility] [address] [id number] [facility] [place] [address] 14 Sep, 2013 [facility] [address] [id number] [facility] [place] [address] Sep, [facility] [address] [id number] [facility] [place] [address] Sep, [facility] [place] [facility] [address] [id number] [address] [place] [address], [place] [address] Aug, [facility] [address] [id number] [address] [place] [address], [place] [address] Aug, [facility] [address] [id number] [address] [place] [address], [place] [address] Aug, [facility] [address] [id number] [address] [place] [address], [place] [address] Aug, [facility] [address] [id number] [address] [place] [address], [place] [address] Aug, [facility] [address] [id number] [address] [place] [address], [place] [address] Aug, [facility] [address] [id number] [address] [place] [address], [place] [address] Jul, [facility] [address] [id number] [address] [place] [address], [place] [address] Jul, [facility] [address] [id number] [address] [place] [address], [place] [address] Jul, [facility] [address] [id number] [address] [place] [address], [place] [address] Jul, [facility] [place] [facility] [address] [id number] [address] [place] [address], [place] [address] Jun, [facility] [place] [facility] [address] [id number] [address] [place] [address], [place] [address] Jun, [facility] [place] [facility] [address] [id number] [address] [address] 11 May, 2013 [facility] [address] [id number] [address] [place] [address], [place] [address] 11 May, 2013 [facility] [address] [id number] [address] [place] [address], [place] [address] 10 May, 2013 [facility] [address] [id number] [address] [place] [address], [place] [address] May, [facility] [address] [id number] [address] [place] [address], [place] [address] May, [facility] [address] [id number] [address] [place] [address], [place] [address] Apr, [facility] [address] [id number] [address] [place] [address], [place] [address] Apr, [facility] [address] [id number] [address] [place] [address], [place] [address] Apr, [facility] [address] [id number] [address] [place] [address], [place] [address] Apr, [facility] [address] [id number] [address] [place] [address], [place] [address] 04 Apr, 2013 [facility] [address] [id number] [address] [place] [address], [place] [address] 04 Apr, 2013 [facility] [address] [id number] [address] [place] [address], [place] [address] 15 Mar, 2013 [facility] [address] [id number] [address] [place] [address], [place] [address] 15 Mar, 2013 [facility] [address] [id number] [address] [place] [address], [place] [address] 14 Mar, 2013 [facility] [address] [id number] [address] [place] [address], [place] [address] 14 Mar, 2013 [facility] [address] [id number] [address] [place] [address], [place] [address] Mar, [facility] [address] [id number] [address] [place] [address], [place] [address] Mar, [facility] [address] [id number] [address] [place] [address], [place] [address] Feb, [facility] [address] [id number] [address] [place] [address], [place] [address] Feb, [facility] [address] [id number] [address] [place] [address], [place] [address] Feb, [facility] [address] [id number] [address] [place] [address], [place] [address] Jan, [facility] [address] [id number] [address] [place] [address], [place] [address] Jan, [facility] [address] [id number] [address] [place] [address], [place] [address] Jan, [facility] [address] [id number] [address] [place] [address], [place] [address] Jan, [facility] [address] [id number] [address] [place] [address], [place] [address] Jan, [facility] [address] [id number] [address] [place] [address], [place] [address] Jan, [facility] [address] [id number] [address] [place] [address], [place] [address] Dec, [facility] [address] [id number] [address] [place] [address], [place] [address] Dec, [facility] [address] [id number] [address] [place] [address], [place] [address] Dec, [facility] [address] [id number] [address] [place] [address], [place] [address] Dec, [facility] [address] [id number] [address] [place] [address], [place] [address] Dec, [facility] [address] [id number] [address] [place] [address], [place] [address] 09 Dec, 2012 [facility] [address] [id number] [address] [place] [address], [place] [address] 26 Nov, 2012 [facility] [address] [id number] [address] [place] [address], [place] [address] Nov, [facility] [address] [id number] [address] [place] [address], [place] [address] 18 Nov, 2012 [facility] [address] [id number] [address] [place] [address], [place] [address] 13 Nov, 2012 [facility] [address] [id number] [address] [place] [address], [place] [address] Nov, [facility] [address] [id number] [address] [place] [address], [place] [address] Nov, [facility] [address] [id number] [address] [place] [address], [place] [address] October, [facility] [address] [id number] [address] [place] [address], [place] [address] October, [facility] [address] [id number] [address] [place] [address], [place] [address] October, [facility] [address] [id number] [address] [place] [address], [place] [address] October, [facility] [address] [id number] [address] [place] [address], [place] [address] October, [facility] [address] [id number] [address] [place] [address], [place] [address] 30 Sep, 2012 [facility] [address] [id number] [address] [place] [address], [place] [address] 23 Sep, 2012 [facility] [address] [id number] [address] [place] [address], [place] [address] Sep, [facility] [address] [id number] [address] [place] [address], [place] [address] 18 Sep, 2012 [facility] [address] [id number] [address] [place] [address], [place] [address] 09 Sep, 2012 [facility] [address] [id number] [address] [place] [address], [place] [address] Aug, [facility] [address] [id number] [address] [place] [address], [place] [address] Aug, [facility] [address] [id number] [address] [place] [address], [place] [address] Aug, [facility] [address] [id number] [address] [place] [address], [place] [address] Jul, [facility] [address] [id number] [address] [place] [address], [place] [address] 20 Jul, 2012 [facility] [address] [id number] [address] [place] [address], [place] [address] Jul, [facility] [address] [id number] [address] [place] [address], [place] [address] 08 Jul, 2012 [facility] [address] [id number] [address] [place] [address], [place] [address] 06 Jul, 2012 [facility] [address] [id number] [address] [place] [address], [place] [address] 05 Jul, 2012 [facility] [address] [id number] [address] [place] [address], [place] [address] 15 Jun, 2012 [facility] [address] [id number] [address] [place] [address], [place] [address] Apr, [facility] [facility] [address] [id number] [address] [place] [address], [place] [address] 16 Apr, 2012 [facility] [address] [id number] [address] [place] [address], [place] [address] Apr, [facility] [address] [id number] [address] [place] [address], [place] [address] 12 Apr, 2012 [facility] [address] [id number] [place] [address] Mar, [facility] [address] [id number] [address] [place] [address], [place] [address] Mar, [facility] [address] [id number] [address] [place] [address], [place] [address] Mar, [facility] [address] [id number] [address] [place] [address], [place] [address] Mar, [facility] [address] [id number] [address] [place] [address], [place] [address] Mar, [facility] [address] [id number] [address] [place] [address], [place] [address] Feb, [facility] [address] [id number] [address] [place] [address], [place] [address] Jan, [facility] [address] [id number] [address] [place] [address], [place] [address] Jan, [facility] [address] [id number] [address] [place] [address], [place] [address] Jan, [facility] [address] [id number] [address] [place] [address], [place] [address] Dec, [facility] [address] [id number] [address] [place] [address], [place] [address] Nov, [facility] [address] [id number] [address] [place] [address], [place] [address] Nov, [facility] [address] [id number] [address] [place] [address] Nov, [facility] [address] [id number] [address] [place] [address], [place] [address] Nov, [facility] [address] [id number] [address] [place] [id number] Nov, [facility] [address] [id number] [address] [place] [address], [place] [address] October, [facility] [address] [id number] [address] [place] [id number] October, [facility] [address] [facility] [id number] [address] [place] [id number] October, [facility] [address] [facility] [id number] [address] [place] [address] October, [facility] [address] [facility] [id number] [address] [place] [id number] October, IMMUNIZATIONS No Known Immunizations SOCIAL HISTORY [...]
--- OUTSIDE RECORDS SUMMARY | 2020-01-25 07:45 | XMS REPORT ---
Author Author Velma CORDERO Organization [facility] Address [address] [place] [address] Care Team Providers Care Histotechnologist Supervisor Name Role Phone STEPHAN CORDERO Unavailable PROBLEMS Type Condition ICD9-CM Code UMS80-IV Code Onset Dates Condition S tatus SNOMED Code Problem Primary insomnia F51.01 Active 397 2004 Problem Hypercholesteremia E78.0 Active 1 2517448 Problem Corns L84 Active 617986634 Problem Arthritis M19.90 Active 8252814 Problem Hyperparathyroidism E21.3 Active 12104265 Problem 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 Active 26911254 Problem 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41 Active 353018545 ALLERGIES No Information ENCOUNTERS Encounter Location Date Diagnosis [facility] [address] [facility] [id number] [address] [place] [phone] Jan, Arthritis M19.90 [facility] [address] [facility] [id number] [address] [place] [phone] Dec, Arthritis M19.90 [facility] [address] [facility] [id number] [address] [place] [phone] Nov, Inflammatory spondylopathy o f sacral region M46.98 [facility] [address] [id number] [address] [place] [phone] Nov, [facility] [address] [id number] [address] [place] [phone] 14 Nov, 2018 Labyrinthitis of left ear H8 3.02 [facility] [address] [id number] [address] [place] [phone] 03 Nov, 2018 Arthritis M19.90 [facility] [address] [id number] [address] [place] [phone] 15 Sep, 2018 Arthritis M19.90 [facility] [address] [id number] [address] [place] [phone] 08 Sep, 2018 Renal insufficiency N28.9 an d Unspecified kidney failure N19 [facility] [address] [id number] [address] [place] [phone] Sep, Renal insufficiency N28.9 an d Unspecified kidney failure N19 [facility] [address] [id number] [address] [place] [phone] Sep, Arthritis M19.90 [facility] [address] [id number] [address] [place] [phone] Aug, Exercise counseling Z71.82 [facility] [address] [facility] [id number] [address] [place] [phone] Aug, [facility] [address] [id number] [address] [place] [id number] Jul, Labyrinthitis of left ear H8 3.02 [facility] [address] [id number] [address] [place] [phone] Jul, Labyrinthitis of left ear H8 3.02 [facility] [address] [id number] [address] [place] [phone] Jul, Exercise counseling Z71.82 [facility] [address] [id number] [address] [place] [id number] 18 Jul, 2018 [place] [address] [facility] [id number] [address] [place] [id number] 14 Jul, 2018 Arthritis M19.90 [place] [address] [facility] [id number] [address] [place] [id number] 13 Jul, 2018 Encounter for Medicare annua l wellness exam Z00.00 ; Chronic kidney disease, stage 4 (severe) N18.4 ; Body mass index (BMI) of 40.0-44.9 in adult Z68.41 ; Hyperparathyroidism E21.3 and BMI 40.0-44.9, adult Z68.41 [place] [address] [facility] [id number] [address] [place] [id number] 13 Jul, 2018 Encounter for Medicare annua l wellness exam Z00.00 ; Chronic kidney disease, stage 4 (severe) N18.4 ; Hyperparathyroidism E21.3 ; Body mass index (BMI) of 40.0-44.9 in adult Z68.41 and Encounter for immunization Z23 [place] [address] [place] [id number] [address] [place] [id number] 11 Jul, 2018 Tail bone pain M53.3 [place] [address] [place] [id number] [address] [place] [phone] Jun, Exercise counseling Z71.82 [place] [address] [place] [id number] [address] [place] [phone] Jun, Labyrinthitis of left ear H8 3.02 [place] [address] [facility] [id number] [address] [place] [phone] Jun, Tail bone pain M53.3 ; Irrit able bowel syndrome with both constipation and diarrhea K58.2 and Dysfunction of left eustachian tube H69.82 [place] [address] [facility] [id number] [address] [place] [phone] Jun, Exercise counseling Z71.82 [place] [address] [place] [id number] [address] [place] [phone] Jun, Arthritis M19.90 [facility] [address] [id number] [address] [place] [phone] Jun, Irritable bowel syndrome wit h both constipation and diarrhea K58.2 ; Tail bone pain M53.3 and Dysfunction of left eustachian tube H69.82 [facility] [address] [id number] [address] [place] [address] Jun, Exercise counseling Z71.82 [facility] [address] [id number] [address] [place] [phone] Jun, Exercise counseling Z71.82 [facility] [address] [id number] [address] [place] [phone] Jun, Labyrinthitis of left ear H8 3.02 [facility] [address] [id number] [address] [place] [address] May, Exercise counseling Z71.82 [facility] [address] [id number] [address] [place] [address] May, Arthritis M19.90 [facility] [address] [id number] [address] [place] [address] May, Exercise counseling Z71.82 [facility] [address] [id number] [address] [place] [address] May, Exercise counseling Z71.82 [facility] [address] [id number] [address] [place] [phone] May, Labyrinthitis of left ear H8 3.02 [facility] [address] [id number] [address] [place] [phone] May, Exercise counseling Z71.82 [facility] [address] [id number] [address] [place] [phone] Apr, Arthritis M19.90 [facility] [address] [id number] [address] [place] [phone] Apr, Exercise counseling Z71.82 [place] [address] [facility] [id number] [address] [place] [phone] Apr, Exercise counseling Z71.82 [facility] [address] [place] [id number] [address] [place] [phone] 08 Apr, 2018 Primary osteoarthritis of le ft knee M17.12 [place] [address] [place] [id number] [address] [place] [phone] Apr, Labyrinthitis of left ear H8 3.02 [place] [address] [facility] [id number] [address] [place] [phone] Mar, Arthritis M19.90 [place] [address] [place] [id number] [place] [phone] Mar, [place] [address] [phone] Mar, Chronic kidney disease, stag e 4 (severe) N18.4 [place] [address] [place] [id number] [address] [place] [phone] Mar, Chronic kidney disease, stag e 4 (severe) N18.4 [place] [address] [place] [id number] [address] [place] [phone] Mar, Labyrinthitis of left ear H8 3.02 [place] [address] [address] Mar, Chronic kidney disease, stag e 4 (severe) N18.4 ; Knee pain, left anterior M25.562 ; 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 and Encounter for immunization Z23 [place] [address] [place] [id number] [address] [place] [address] Mar, Arthritis M19.90 [place] [address] [place] [id number] [address] [place] [address] Feb, Labyrinthitis of left ear H8 3.02 [place] [address] [place] [id number] [address] [place] [phone] Feb, Arthritis M19.90 [facility] [address] [place] [id number] [address] [place] [phone] Jan, Labyrinthitis of left ear H8 3.02 [place] [address] [place] [id number] [address] [place] [address] Jan, Arthritis M19.90 [facility] [address] [place] [id number] [address] [place] [phone] Dec, Labyrinthitis of left ear H8 3.02 [place] [address] [place] [id number] [place] [address] Nov, Arthritis M19.90 [place] [address] [place] [id number] [place] [phone] Nov, Labyrinthitis of left ear H8 3.02 [place] [address] [place] [id number] [place] [phone] Nov, BMI 40.0-44.9, adult Z68.41 ; Chronic kidney disease, stage 4 (severe) N18.4 and Acute right-sided thoracic back pain M54.6 [place] [address] [place] [id number] [address] [place] [address] October, Labyrinthitis of left ear H8 3.02 and Arthritis M19.90 [place] [address] [place] [id number] [address] [place] [phone] Sep, BPV (benign positional verti go), bilateral H81.13 ; Dysfunction of left eustachian tube H69.82 and BMI 40.0-44.9, adult Z68.41 [place] [address] [place] [id number] [address] [place] [phone] Sep, Labyrinthitis of left ear H8 3.02 and Arthritis M19.90 [place] [address] [place] [id number] [address] [place] [phone] Sep, [facility] [address] [facility] [id number] [address] [place] [phone] Sep, [facility] [address] [facility] [id number] [address] [place] [phone] Sep, Chronic kidney disease, stag e 4 (severe) N18.4 [facility] [address] [place] [id number] [address] [place] [phone] Sep, Chronic kidney disease, stag e 4 (severe) N18.4 [facility] [address] [facility] [id number] [address] [place] [address] Aug, Labyrinthitis of left ear H8 3.02 and Arthritis M19.90 [place] [address] [place] [id number] [address] [place] [phone] Aug, [facility] [address] [place] [id number] [address] [place] [phone] Jul, [place] [address] [place] [id number] [address] [place] [address] Jul, Arthritis M19.90 and Labyrin thitis of left ear H83.02 [place] [address] [place] [id number] [address] [place] [phone] Jul, [place] [id number] [place] [phone] Jun, [place] [address] [place] [id number] [address] [place] [address] Jun, Arthritis M19.90 and Labyrin thitis of left ear H83.02 [place] [address] [place] [id number] [address] [place] [phone] 09 Jun, 2017 Pre-op evaluation Z01.818 ; BMI 40.0-44.9, adult Z68.41 and Encounter for immunization Z23 [facility] [address] [place] [id number] [address] [place] [address] May, Arthritis M19.90 and Labyrin thitis of left ear H83.02 [place] [address] [place] [id number] [address] [place] [address] Apr, Labyrinthitis of left ear H8 3.02 [facility] [address] [place] [id number] [address] [place] [address] Apr, Arthritis M19.90 and Labyrin thitis of left ear H83.02 [place] [address] [place] [id number] [address] [place] [phone] Mar, Arthritis M19.90 and Labyrin thitis of left ear H83.02 [place] [address] [place] [id number] [place] [phone] 05 Mar, 2017 Chronic kidney disease, stag e 4 (severe) N18.4 [place] [address] [place] [id number] [place] [phone] Feb, Arthritis M19.90 and Labyrin thitis of left ear H83.02 [place] [address] [place] [id number] [address] [place] [address] Jan, Labyrinthitis of left ear H8 3.02 and 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 [place] [address] [place] [id number] [address] [place] [address] Dec, Arthritis M19.90 [place] [address] [place] [id number] [address] [place] [phone] Dec, BPV (benign positional verti go), bilateral H81.13 [place] [address] [place] [id number] [place] [phone] Dec, [place] [address] [place] [id number] [address] [place] [phone] Dec, [place] [address] [address] Dec, [facility] [address] [facility] [id number] [address] [place] [phone] Nov, Arthritis M19.90 and Deficie ncy of other specified B group vitamins E53.8 [facility] [address] [id number] [address] [place] [phone] Nov, Arthritis M19.90 [facility] [address] [id number] [address] [place] [phone] Nov, Hyperparathyroidism E21.3 [facility] [address] [facility] [id number] [address] [place] [phone] October, [facility] [address] [facility] [id number] [address] [place] [phone] October, Hyperparathyroidism E21.3 [facility] [address] [facility] [id number] [address] [place] [phone] October, [facility] [address] [facility] [id number] [address] [place] [phone] October, Renal insufficiency N28.9 an d Hyperparathyroidism E21.3 [facility] [address] [facility] [id number] [address] [place] [phone] October, [facility] [address] [facility] [id number] [address] [place] [phone] October, Renal insufficiency N28.9 an d Hyperparathyroidism E21.3 [facility] [address] [facility] [id number] [address] [place] [phone] October, Arthritis M19.90 [facility] [address] [facility] [id number] [address] [place] [phone] Sep, [facility] [address] [facility] [id number] [address] [place] [phone] Sep, Lumbar neuritis M54.16 ; Tho racic abscess J86.9 and 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 [facility] [address] [id number] [address] [place] [phone] Sep, [facility] [address] [id number] [address] [place] [phone] Aug, Arthritis M19.90 [facility] [address] [facility] [id number] [address] [place] [phone] Aug, Hyperparathyroidism E21.3 [facility] [address] [facility] [id number] [address] [place] [phone] Aug, Hyperparathyroidism E21.3 [facility] [address] [facility] [id number] [address] [place] [address] Aug, Arthritis M19.90 [facility] [address] [facility] [id number] [address] [place] [phone] Jul, Mass of throat R22.1 [facility] [address] [facility] [id number] [address] [place] [phone] Jul, [facility] [address] [facility] [id number] [address] [place] [phone] Jul, Arthritis M19.90 [facility] [address] [facility] [id number] [address] [place] [address] Jun, Arthritis M19.90 [facility] [address] [facility] [id number] [address] [place] [phone] Jun, [facility] [address] [facility] [id number] [address] [place] [phone] Jun, Renal insufficiency N28.9 an d 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 [facility] [address] [facility] [id number] [address] [place] [phone] 05 Jun, 2016 Medicare welcome exam Z00.00 ; Encounter for immunization Z23 ; Arthritis M19.90 ; Medicare annual wellness visit, initial Z00.00 ; Medicare annual wellness visit, subsequent Z00.00 and 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 [facility] [address] [facility] [id number] [address] [place] [phone] May, Renal insufficiency N28.9 an d 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 [facility] [address] [facility] [id number] [address] [place] [phone] May, Renal insufficiency N28.9 [facility] [address] [facility] [id number] [address] [place] [phone] May, Renal insufficiency N28.9 [facility] [address] [facility] [id number] [address] [place] [phone] 14 May, 2016 [facility] [address] [facility] [id number] [address] [place] [phone] Apr, [facility] [address] [facility] [id number] [address] [place] [phone] 16 Apr, 2016 [facility] [address] [facility] [id number] [address] [place] [phone] 14 Apr, 2016 Mass of throat R22.1 [facility] [address] [facility] [id number] [address] [place] [phone] 10 Apr, 2016 [facility] [address] [facility] [id number] [address] [place] [phone] 10 Apr, 2016 Mass of throat R22.1 [facility] [address] [facility] [id number] [address] [place] [phone] 04 Apr, 2016 Mass of throat R22.1 [facility] [address] [facility] [id number] [address] [place] [phone] Mar, [facility] [address] [facility] [id number] [address] [place] [phone] Mar, [facility] [address] [facility] [id number] [address] [place] [phone] Mar, [facility] [address] [facility] [id number] [address] [place] [phone] 24 Mar, 2016 Parathyroid abnormality E21. 5 and Encounter for immunization Z23 [facility] [address] [facility] [id number] [address] [place] [phone] 17 Mar, 2016 [facility] [address] [id number] [address] [place] [phone] Mar, [facility] [address] [id number] [address] [place] [id number] 21 Feb, 2016 Renal insufficiency N28.9 an d Hyperparathyroidism E21.3 [facility] [address] [id number] [address] [place] [phone] 19 Feb, 2016 [facility] [address] [id number] [address] [place] [phone] 15 Feb, 2016 Renal insufficiency N28.9 an d Hyperparathyroidism E21.3 [facility] [address] [facility] [id number] [address] [place] [phone] 14 Feb, 2016 [facility] [address] [id number] [address] [place] [phone] 12 Feb, 2016 [facility] [address] [facility] [id number] [address] [place] [phone] 09 Feb, 2016 [facility] [address] [id number] [address] [place] [phone] Jan, [facility] [address] [facility] [id number] [address] [place] [phone] Jan, Arthritis M19.90 ; Lumbago w ith sciatica, right side M54.41 and Other chronic pain G89.29 [facility] [address] [facility] [id number] [address] [place] [phone] Jan, [facility] [address] [facility] [id number] [address] [place] [phone] Dec, Arthritis M19.90 ; Lumbago w ith sciatica, right side M54.41 and Other chronic pain G89.29 [facility] [address] [facility] [id number] [address] [place] [id number] 16 Nov, 2015 Deficiency of other specifie d B group vitamins E53.8 ; Primary insomnia F51.01 ; Mood disorder F39 and Lumbago with sciatica, right side M54.41 [facility] [id number] [place] [id number] Nov, Hyperparathyroidism E21.3 [facility] [address] [place] [id number] [address] [place] [phone] Nov, Unspecified kidney failure N 19 and Hyperparathyroidism E21.3 [facility] [address] [place] [id number] [place] [phone] October, Hyperparathyroidism E21.3 [facility] [address] [place] [id number] [place] [phone] October, [facility] [address] [id number] October, Hyperparathyroidism E21.3 [facility] [address] [phone] October, Hyperparathyroidism E21.3 [facility] [address] [place] [id number] [place] [phone] Sep, Hyperparathyroidism E21.3 ; Hypercholesterolemia E78.0 and Arthritis M19.90 [facility] [id number] [place] [phone] Aug, [facility] [address] [id number] Aug, Deficiency of other specifie d B group vitamins E53.8 [facility] [address] [place] [id number] [place] [phone] Aug, [facility] [address] [phone] Jul, Urinary frequency R35.0 [facility] [address] [place] [id number] [place] [phone] Jul, Urinary frequency R35.0 [facility] [address] [place] [id number] [place] [id number] Jul, [facility] [address] [id number] [address] [place] [phone] Jul, [facility] [address] [id number] [address] [place] [phone] Jun, Pain in left knee M25.562 [facility] [address] [id number] [address] [place] [id number] Jun, [facility] [address] [id number] [address] [place] [address] May, Swelling of left knee joint M25.462 [facility] [address] [id number] [address] [place] [address] May, [facility] [address] [facility] [id number] [address] [place] [id number] May, [facility] [address] [facility] [id number] [address] [place] [address] May, [facility] [address] [facility] [id number] [address] [place] [address] Apr, Renal insufficiency N28.9 an d Chronic kidney disease, stage 4 (severe) N18.4 [facility] [address] [facility] [id number] [address] [place] [address] Apr, Unspecified kidney failure N 19 [facility] [address] [facility] [id number] [address] [place] [id number] Apr, Unspecified kidney failure N 19 [facility] [address] [facility] [id number] [address] [place] [address] Apr, [facility] [address] [facility] [id number] [address] [place] [id number] Apr, Hyperparathyroidism, unspeci fied 252.00 [facility] [address] [facility] [id number] [address] [place] [id number] Apr, [facility] [address] [id number] [address] [place] [id number] Mar, [facility] [address] [id number] [address] [place] [id number] Mar, [facility] [address] [id number] [address] [place] [id number] Mar, Hyperparathyroidism, unspeci fied 252.00 [facility] [address] [id number] [address] [place] [id number] Feb, [facility] [address] [id number] [address] [place] [address] Feb, Otalgia 388.70 [facility] [address] [id number] [address] [place] [phone] Feb, [facility] [address] [facility] [id number] [address] [place] [address] Feb, [facility] [address] [id number] [address] [place] [id number] Jan, [facility] [address] [id number] [address] [place] [address] Jan, Hyperparathyroidism, unspeci fied 252.00 [facility] [address] [id number] [address] [place] [id number] Jan, [facility] [address] [id number] [address] [place] [address] Jan, Other B-complex deficiencies 266.2 and Hyperparathyroidism, unspecified 252.00 [facility] [address] [id number] [address] [place] [address] Jan, [facility] [address] [id number] [address] [place] [id number] Jan, [facility] [address] [id number] [address] [place] [id number] Jan, [facility] [address] [id number] [address] [place] [id number] Dec, [facility] [address] [id number] [address] [place] [phone] Dec, [facility] [address] [id number] [address] [place] [phone] Dec, [facility] [address] [id number] [address] [place] [id number] Nov, Routine check-up V70.0 and P re-op exam V72.84 [facility] [address] [id number] [address] [place] [address] Nov, [facility] [address] [id number] [address] [place] [phone] Nov, [facility] [address] [id number] [address] [place] [id number] October, [facility] [address] [id number] [address] [place] [address] October, Other B-complex deficiencies 266.2 [facility] [address] [id number] [address] [place] [address] October, [facility] [address] [id number] [address] [place] [phone] Sep, [facility] [address] [id number] [address] [place] [id number] Sep, [facility] [address] [id number] [address] [place] [phone] Aug, [facility] [address] [id number] [address] [place] [id number] Aug, [facility] [address] [id number] [address] [place] [phone] Aug, [facility] [address] [id number] [address] [place] [phone] Aug, [facility] [address] [id number] [address] [place] [phone] Aug, 2014 [facility] [address] [id number] [address] [place] [address], [place] [address] Aug, 2014 [facility] [address] [id number] [address] [place] [address], [place] [address] Jul, 2014 [facility] [address] [id number] [address] [place] [address], [place] [address] Jul, 2014 [facility] [address] [id number] [address] [place] [address], [place] [address] Jul, 2014 [facility] [address] [id number] [address] [place] [address], [place] [address] Jul, 2014 [facility] [address] [id number] [address] [place] [address], [place] [address] Jul, 2014 [facility] [address] [id number] [address] [place] [address], [place] [address] Jul, 2014 [facility] [address] [id number] [address] [place] [address], [place] [address] Jul, 2014 [facility] [address] [id number] [address] [place] [address], [place] [address] Jul, 2014 [facility] [address] [id number] [address] [place] [address], [place] [address] Jul, 2014 [facility] [address] [id number] [address] [place] [address], [place] [address] Jul, 2014 [facility] [address] [id number] [address] [place] [address], [place] [address] Jul, 2014 [facility] [address] [id number] [address] [place] [address], [place] [address] Jul, 2014 [facility] [address] [id number] [address] [place] [phone] Jul, 2014 [facility] [place] [address] [id number] [address] [place] [address] [address] Jul, [facility] [address] [id number] [address] [place] [address], [place] [address] Jun, [facility] [address] [id number] [address] [place] [address], [place] [address] Jun, [facility] [address] [id number] [address] [place] [address], [place] [address] Jun, [facility] [address] [id number] [address] [place] [address], [place] [address] Jun, [facility] [address] [id number] [address] [place] [address], [place] [address] Jun, [facility] [address] [id number] [address] [place] [address], [place] [address] Jun, [facility] [address] [id number] [address] [place] [address], [place] [address] Jun, [facility] [address] [id number] [address] [place] [address], [place] [address] Jun, [facility] [address] [id number] [address] [place] [address], [place] [address] Jun, [facility] [address] [id number] [address] [place] [address], [place] [address] Jun, [facility] [address] [id number] [address] [place] [address], [place] [address] Jun, [facility] [address] [id number] [address] [place] [id number] Jun, [facility] [address] [id number] [address] [place] [address], [place] [address] Jun, [facility] [address] [id number] [address] [place] [address], [place] [address] Jun, [facility] [address] [id number] [address] [place] [address], [place] [address] May, [facility] [address] [id number] [address] [place] [address], [place] [address] 15 May, 2014 [facility] [address] [id number] [address] [place] [address], [place] [address] May, [facility] [address] [id number] [address] [place] [address], [place] [address] May, [facility] [address] [id number] [address] [place] [address], [place] [address] Apr, [facility] [address] [id number] [address] [place] [address], [place] [address] Apr, [facility] [address] [id number] [address] [place] [address], [place] [address] Apr, [facility] [address] [id number] [address] [place] [address], [place] [address] Apr, [facility] [address] [id number] [address] [place] [address], [place] [address] Apr, [facility] [address] [id number] [address] [place] [address], [place] [address] Apr, [facility] [address] [id number] [address] [place] [address], [place] [address] Mar, [facility] [address] [id number] [address] [place] [address], [place] [address] Mar, [facility] [address] [id number] [address] [place] [address], [place] [address] Mar, [facility] [address] [id number] [address] [place] [address], [place] [address] Mar, [facility] [address] [id number] [address] [place] [address], [place] [address] Mar, [facility] [address] [id number] [address] [place] [address], [place] [address] Mar, [facility] [address] [id number] [address] [place] [address], [place] [address] Mar, [facility] [address] [id number] [address] [place] [address], [place] [address] 13 Mar, 2013 [facility] [address] [id number] [address] [place] [address], [place] [address] Mar, 2013 [facility] [address] [id number] [address] [place] [address], [place] [address] Mar, 2013 [facility] [address] [id number] [address] [place] [address], [place] [address] Mar, 2013 [facility] [address] [id number] [address] [place] [address], [place] [address] Mar, 2013 [facility] [address] [id number] [address] [place] [address], [place] [address] Mar, [facility] [address] [id number] [address] [place] [address], [place] [address] 26 Feb, 2013 [facility] [address] [id number] [address] [place] [address], [place] [address] 26 Feb, 2013 [facility] [address] [id number] [address] [place] [address], [place] [address] 23 Feb, 2013 [facility] [address] [id number] [address] [place] [address], [place] [address] 23 Feb, 2013 [facility] [address] [id number] [address] [place] [address], [place] [address] 19 Feb, 2013 [facility] [address] [id number] [address] [place] [address], [place] [address] 19 Feb, 2013 [facility] [address] [id number] [address] [place] [address], [place] [address] 13 Feb, 2013 [facility] [address] [id number] [address] [place] [address], [place] [address] 13 Feb, 2013 [facility] [address] [id number] [address] [place] [address], [place] [address] 12 Feb, 2013 [facility] [address] [id number] [address] [place] [address], [place] [address] Feb, [facility] [address] [id number] [address] [place] [address], [place] [address] Jan, [facility] [address] [id number] [address] [place] [address], [place] [address] Jan, [facility] [address] [id number] [address] [place] [address], [place] [address] Dec, [facility] [address] [id number] [address] [place] [address], [place] [address] Dec, [facility] [address] [id number] [address] [place] [address], [place] [address] Dec, [facility] [address] [id number] [address] [place] [address], [place] [address] Dec, [facility] [address] [id number] [address] [place] [address], [place] [address] Dec, [facility] [address] [id number] [address] [place] [address], [place] [address] Dec, [facility] [address] [id number] [address] [place] [address], [place] [address] Nov, [facility] [address] [id number] [address] [place] [address], [place] [address] Nov, [facility] [address] [id number] [address] [place] [address], [place] [address] Nov, [facility] [address] [id number] [address] [place] [address], [place] [address] Nov, [facility] [address] [id number] [address] [place] [address], [place] [address] October, [facility] [address] [id number] [address] [place] [address], [place] [address] October, [facility] [address] [id number] [address] [place] [address], [place] [address] October, [facility] [address] [id number] [facility] [place] [address] October, [facility] [address] [id number] [facility] [place] [address] October, [facility] [address] [id number] [facility] [place] [address] October, [facility] [address] [id number] [address] [place] [address], [place] [address] October, [facility] [address] [id number] [address] [place] [address], [place] [address] October, [facility] [address] [id number] [address] [place] [address], [place] [address] October, [facility] [address] [id number] [address] [place] [address], [place] [address] October, [facility] [address] [id number] [address] [place] [address], [place] [address] October, [facility] [address] [id number] [address] [place] [address], [place] [address] October, [facility] [address] [id number] [address] [place] [address], [place] [address] October, [facility] [address] [id number] [address] [place] [address], [place] [address] October, [facility] [address] [id number] [address] [place] [address], [place] [address] October, [facility] [address] [id number] [address] [place] [address], [place] [address] October, [facility] [address] [id number] [address] [place] [address], [place] [address] Sep, [facility] [address] [id number] [address] [place] [address], [place] [address] Sep, [facility] [address] [id number] [address] [place] [address], [place] [address] Sep, [facility] [address] [id number] [facility] [place] [address] 14 Sep, 2013 [facility] [address] [id number] [facility] [place] [address] Sep, [facility] [address] [id number] [facility] [place] [address] Sep, [facility] [address] [id number] [address] [place] [address], [place] [address] Aug, [facility] [address] [id number] [address] [place] [address], [place] [address] Aug, [facility] [address] [id number] [address] [place] [address], [place] [address] Aug, [facility] [address] [id number] [address] [place] [address], [place] [address] Aug, [facility] [address] [id number] [address] [place] [address], [place] [address] Aug, [facility] [address] [id number] [address] [place] [address], [place] [address] Aug, [facility] [address] [id number] [address] [place] [address], [place] [address] Jul, [facility] [address] [id number] [address] [place] [address], [place] [address] Jul, [facility] [address] [id number] [address] [place] [address], [place] [address] Jul, [facility] [address] [id number] [address] [place] [address], [place] [address] Jul, [facility] [address] [id number] [address] [place] [address], [place] [address] Jun, [facility] [address] [id number] [address] [place] [address], [place] [address] Jun, [facility] [address] [id number] [address] [address] 11 May, 2013 [facility] [address] [id number] [address] [place] [address], [place] [address] 11 May, 2013 [facility] [address] [id number] [address] [place] [address], [place] [address] 10 May, 2013 [facility] [address] [id number] [address] [place] [address], [place] [address] May, [facility] [address] [id number] [address] [place] [address], [place] [address] May, [facility] [address] [id number] [address] [place] [address], [place] [address] Apr, [facility] [address] [id number] [address] [place] [address], [place] [address] Apr, [facility] [address] [id number] [address] [place] [address], [place] [address] Apr, [facility] [address] [id number] [address] [place] [address], [place] [address] Apr, [facility] [address] [id number] [address] [place] [address], [place] [address] 04 Apr, 2013 [facility] [address] [id number] [address] [place] [address], [place] [address] 04 Apr, 2013 [facility] [address] [id number] [address] [place] [address], [place] [address] 15 Mar, 2013 [facility] [address] [id number] [address] [place] [address], [place] [address] 15 Mar, 2013 [facility] [address] [id number] [address] [place] [address], [place] [address] 14 Mar, 2013 [facility] [address] [id number] [address] [place] [address], [place] [address] 14 Mar, 2013 [facility] [address] [id number] [address] [place] [address], [place] [address] Mar, [facility] [place] [facility] [address] [id number] [address] [place] [address], [place] [address] Mar, [facility] [address] [id number] [address] [place] [address], [place] [address] Feb, [facility] [address] [id number] [address] [place] [address], [place] [address] Feb, [facility] [address] [id number] [address] [place] [address], [place] [address] Feb, [facility] [address] [id number] [address] [place] [address], [place] [address] Jan, [facility] [address] [id number] [address] [place] [address], [place] [address] Jan, [facility] [address] [id number] [address] [place] [address], [place] [address] Jan, [facility] [address] [id number] [address] [place] [address], [place] [address] Jan, [facility] [address] [id number] [address] [place] [address], [place] [address] Jan, [facility] [address] [id number] [address] [place] [address], [place] [address] Jan, [facility] [address] [id number] [address] [place] [address], [place] [address] Dec, [facility] [address] [id number] [address] [place] [address], [place] [address] Dec, [facility] [address] [id number] [address] [place] [address], [place] [address] Dec, [facility] [address] [id number] [address] [place] [address], [place] [address] Dec, [facility] [address] [id number] [address] [place] [address], [place] [address] Dec, [facility] [address] [id number] [address] [place] [address], [place] [address] 09 Dec, 2012 [facility] [address] [id number] [address] [place] [address], [place] [address] 26 Nov, 2012 [facility] [address] [id number] [address] [place] [address], [place] [address] Nov, [facility] [address] [id number] [address] [place] [address], [place] [address] 18 Nov, 2012 [facility] [address] [id number] [address] [place] [address], [place] [address] 13 Nov, 2012 [facility] [address] [id number] [address] [place] [address], [place] [address] Nov, [facility] [address] [id number] [address] [place] [address], [place] [address] Nov, [facility] [address] [id number] [address] [place] [address], [place] [address] October, [facility] [address] [id number] [address] [place] [address], [place] [address] October, [facility] [address] [address] [id number] [address] [place] [address], [place] [address] October, [facility] [address] [id number] [address] [place] [address], [place] [address] October, [facility] [address] [id number] [address] [place] [address], [place] [address] October, [facility] [address] [id number] [address] [place] [address], [place] [address] 30 Sep, 2012 [facility] [address] [id number] [address] [place] [address], [place] [address] 23 Sep, 2012 [facility] [address] [id number] [address] [place] [address], [place] [address] Sep, [facility] [address] [id number] [address] [place] [address], [place] [address] 18 Sep, 2012 [facility] [address] [id number] [address] [place] [address], [place] [address] 09 Sep, 2012 [facility] [address] [id number] [address] [place] [address], [place] [address] Aug, [facility] [address] [id number] [address] [place] [address], [place] [address] Aug, [facility] [address] [id number] [address] [place] [address], [place] [address] Aug, [facility] [address] [id number] [address] [place] [address], [place] [address] Jul, [facility] [address] [id number] [address] [place] [address], [place] [address] 20 Jul, 2012 [facility] [address] [id number] [address] [place] [address], [place] [address] Jul, [facility] [address] [id number] [address] [place] [address], [place] [address] 08 Jul, 2012 [facility] [address] [id number] [address] [place] [address], [place] [address] 06 Jul, 2012 [facility] [address] [id number] [address] [place] [address], [place] [address] 05 Jul, 2012 [facility] [address] [id number] [address] [place] [address], [place] [address] 15 Jun, 2012 [facility] [address] [id number] [address] [place] [address], [place] [address] Apr, [facility] [address] [id number] [address] [place] [address], [place] [address] 16 Apr, 2012 [facility] [address] [id number] [address] [place] [address], [place] [address] Apr, [facility] [address] [id number] [address] [place] [address], [place] [address] 12 Apr, 2012 [facility] [address] [id number] [address] [address] Mar, [facility] [address] [id number] [address] [place] [address], [place] [address] Mar, [facility] [address] [id number] [address] [place] [address], [place] [address] Mar, [facility] [address] [id number] [address] [place] [address], [place] [address] Mar, [facility] [address] [id number] [address] [place] [address], [place] [address] Mar, [facility] [address] [id number] [address] [place] [address], [place] [address] Feb, [facility] [address] [id number] [address] [place] [address], [place] [address] Jan, [facility] [address] [id number] [address] [place] [address], [place] [address] Jan, [facility] [address] [id number] [address] [place] [address], [place] [address] Jan, [facility] [address] [id number] [address] [place] [address], [place] [address] Dec, [facility] [address] [id number] [address] [place] [address], [place] [address] Nov, [facility] [address] [id number] [address] [place] [address], [place] [address] Nov, [facility] [address] [id number] [address] [place] [address] Nov, [facility] [address] [id number] [address] [place] [address], [place] [address] Nov, [facility] [address] [id number] [address] [place] [address] Nov, [facility] [address] [id number] [address] [place] [address], [place] [address] October, [facility] [address] [id number] [address] [place] [address] October, [facility] [address] [facility] [id number] [address] [place] [address] October, [facility] [address] [facility] [id number] [address] [place] [id number] October, [facility] [address] [facility] [id number] [address] [place] [address] October, IMMUNIZATIONS No Known Immunizations SOCIAL HISTORY [...]
--- OUTSIDE RECORDS SUMMARY | 2020-01-25 07:45 | XMS REPORT ---
Author Author Velma VERAS Organization [facility] Address [address] [place] [address] Care Team Providers Care Worm Raiser Name Role Phone RITO KAIDEN Unavailable PROBLEMS Type Condition ICD9-CM Code VUW09-BS Code Onset Dates Condition S tatus SNOMED Code Problem Primary insomnia F51.01 Active 397 2004 Problem Hypercholesteremia E78.0 Active 1 8971565 Problem Corns L84 Active 655104434 Problem Arthritis M19.90 Active 7900708 Problem Hyperparathyroidism E21.3 Active 92308817 Problem 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 Active 53692907 Problem 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 Active 17809215 Problem BPV (benign positional vertigo), bilateral H81.13 Active 670215557 Problem Unspecified kidney failure N19 Act chip 82175185 Problem Myalgia M79.1 Active 54868103 Problem 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 Active 372323085 Problem Mood disorder F39 Active 198942 05 Problem Chronic kidney disease, stage 4 (severe) N18.4 Active 548471857 Problem Primary osteoarthritis of left knee M17.12 Active [id number] Problem Irritable bowel syndrome with both constipation and diarrh ea K58.2 Active 72093827 Problem Body mass index (BMI) of 40.0-44.9 in adult Z68.41 Active [id number] ALLERGIES No Information ENCOUNTERS Encounter Location Date Diagnosis [facility] [address] [facility] [id number] [address] [place] [address] Jan, Arthritis M19.90 [facility] [address] [facility] [id number] [address] [place] [address] Dec, Arthritis M19.90 [facility] [address] [facility] [id number] [address] [place] [address] Nov, Inflammatory spondylopathy o f sacral region M46.98 [facility] [address] [id number] [address] [place] [phone] Nov, [facility] [address] [facility] [id number] [address] [place] [address] 14 Nov, 2018 Labyrinthitis of left ear H8 3.02 [facility] [address] [facility] [id number] [address] [place] [id number] 03 Nov, 2018 Arthritis M19.90 [facility] [address] [id number] [address] [place] [id number] 15 Sep, 2018 Arthritis M19.90 [facility] [address] [id number] [address] [place] [id number] Sep, Renal insufficiency N28.9 an d Unspecified kidney failure N19 [facility] [address] [facility] [id number] [address] [place] [address] Sep, Renal insufficiency N28.9 an d Unspecified kidney failure N19 [facility] [address] [id number] [address] [place] [id number] Sep, Arthritis M19.90 [facility] [address] [facility] [id number] [address] [place] [address] Aug, Exercise counseling Z71.82 [facility] [address] [facility] [id number] [address] [place] [address] Aug, [facility] [address] [facility] [id number] [address] [place] [address] Jul, Labyrinthitis of left ear H8 3.02 [facility] [address] [id number] [address] [place] [id number] Jul, Labyrinthitis of left ear H8 3.02 [facility] [address] [id number] [address] [place] [address] Jul, Exercise counseling Z71.82 [facility] [address] [id number] [address] [place] [id number] 18 Jul, 2018 [facility] [address] [facility] [id number] [address] [place] [id number] 14 Jul, 2018 Arthritis M19.90 [place] [address] [facility] [id number] [address] [place] [address] 13 Jul, 2018 Encounter for Medicare annua l wellness exam Z00.00 ; Chronic kidney disease, stage 4 (severe) N18.4 ; Body mass index (BMI) of 40.0-44.9 in adult Z68.41 ; Hyperparathyroidism E21.3 and BMI 40.0-44.9, adult Z68.41 [place] [address] [facility] [id number] [address] [place] [address] 13 Jul, 2018 Encounter for Medicare annua l wellness exam Z00.00 ; Chronic kidney disease, stage 4 (severe) N18.4 ; Hyperparathyroidism E21.3 ; Body mass index (BMI) of 40.0-44.9 in adult Z68.41 and Encounter for immunization Z23 [place] [address] [facility] [id number] [address] [place] [id number] 11 Jul, 2018 Tail bone pain M53.3 [place] [address] [facility] [id number] [address] [place] [phone] 29 Jun, 2018 Exercise counseling Z71.82 [place] [address] [facility] [id number] [address] [place] [address] Jun, Labyrinthitis of left ear H8 3.02 [place] [address] [facility] [id number] [address] [place] [address] Jun, Tail bone pain M53.3 ; Irrit able bowel syndrome with both constipation and diarrhea K58.2 and Dysfunction of left eustachian tube H69.82 [place] [address] [facility] [id number] [address] [place] [address] Jun, Exercise counseling Z71.82 [place] [address] [facility] [id number] [address] [place] [address] Jun, Arthritis M19.90 [facility] [address] [id number] [address] [place] [address] Jun, Irritable bowel syndrome wit h both constipation and diarrhea K58.2 ; Tail bone pain M53.3 and Dysfunction of left eustachian tube H69.82 [facility] [address] [id number] [address] [place] [address] Jun, Exercise counseling Z71.82 [facility] [address] [id number] [address] [place] [address] Jun, Exercise counseling Z71.82 [facility] [address] [id number] [address] [place] [address] Jun, Labyrinthitis of left ear H8 3.02 [facility] [address] [id number] [address] [place] [address] May, Exercise counseling Z71.82 [facility] [address] [id number] [address] [place] [address] May, Arthritis M19.90 [facility] [address] [id number] [address] [place] [address] May, Exercise counseling Z71.82 [facility] [address] [id number] [address] [place] [address] May, Exercise counseling Z71.82 [facility] [address] [id number] [address] [place] [address] May, Labyrinthitis of left ear H8 3.02 [facility] [address] [id number] [address] [place] [address] May, Exercise counseling Z71.82 [facility] [address] [id number] [address] [place] [address] Apr, Arthritis M19.90 [facility] [address] [id number] [address] [place] [address] Apr, Exercise counseling Z71.82 [facility] [address] [facility] [id number] [address] [place] [address] Apr, Exercise counseling Z71.82 [facility] [address] [place] [id number] [address] [place] [address] Apr, Primary osteoarthritis of le ft knee M17.12 [place] [address] [place] [id number] [address] [place] [id number] Apr, Labyrinthitis of left ear H8 3.02 [place] [address] [place] [id number] [address] [place] [address] Mar, Arthritis M19.90 [place] [address] [place] [id number] [place] [address] Mar, [place] [address] [address] Mar, Chronic kidney disease, stag e 4 (severe) N18.4 [place] [address] [place] [id number] [address] [place] [address] Mar, Chronic kidney disease, stag e 4 (severe) N18.4 [place] [address] [place] [id number] [address] [place] [address] Mar, Labyrinthitis of left ear H8 3.02 [place] [address] [address] Mar, Chronic kidney disease, stag e 4 (severe) N18.4 ; Knee pain, left anterior M25.562 ; 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 and Encounter for immunization Z23 [place] [address] [place] [id number] [address] [place] [address] Mar, Arthritis M19.90 [facility] [address] [place] [id number] [address] [place] [address] Feb, Labyrinthitis of left ear H8 3.02 [place] [address] [place] [id number] [address] [place] [address] Feb, Arthritis M19.90 [place] [address] [place] [id number] [address] [place] [address] Jan, Labyrinthitis of left ear H8 3.02 [place] [address] [place] [id number] [address] [place] [address] Jan, Arthritis M19.90 [place] [address] [place] [id number] [place] [address] Dec, Labyrinthitis of left ear H8 3.02 [place] [address] [address] Nov, Arthritis M19.90 [place] [address] [address] Nov, Labyrinthitis of left ear H8 3.02 [place] [address] [address] Nov, BMI 40.0-44.9, adult Z68.41 ; Chronic kidney disease, stage 4 (severe) N18.4 and Acute right-sided thoracic back pain M54.6 [place] [address] [address] October, Labyrinthitis of left ear H8 3.02 and Arthritis M19.90 [place] [address] [place] [id number] [address] [place] [address] Sep, BPV (benign positional verti go), bilateral H81.13 ; Dysfunction of left eustachian tube H69.82 and BMI 40.0-44.9, adult Z68.41 [place] [address] [place] [id number] [address] [place] [address] Sep, Labyrinthitis of left ear H8 3.02 and Arthritis M19.90 [place] [address] [place] [id number] [address] [place] [address] Sep, [facility] [address] [facility] [id number] [address] [place] [address] Sep, [facility] [address] [facility] [id number] [address] [place] [address] Sep, Chronic kidney disease, stag e 4 (severe) N18.4 [facility] [address] [place] [id number] [address] [place] [address] Sep, Chronic kidney disease, stag e 4 (severe) N18.4 [facility] [address] [facility] [id number] [address] [place] [address] Aug, Labyrinthitis of left ear H8 3.02 and Arthritis M19.90 [place] [address] [place] [id number] [address] [place] [address] Aug, [facility] [address] [place] [id number] [address] [place] [address] Jul, [facility] [address] [place] [id number] [address] [place] [address] Jul, Arthritis M19.90 and Labyrin thitis of left ear H83.02 [place] [address] [place] [id number] [address] [place] [address] Jul, [place] [address] [place] [id number] [address] [place] [address] Jun, [facility] [address] [place] [id number] [address] [place] [address] Jun, Arthritis M19.90 and Labyrin thitis of left ear H83.02 [place] [address] [place] [id number] [address] [place] [address] 09 Jun, 2017 Pre-op evaluation Z01.818 ; BMI 40.0-44.9, adult Z68.41 and Encounter for immunization Z23 [place] [address] [place] [id number] [address] [place] [address] May, Arthritis M19.90 and Labyrin thitis of left ear H83.02 [place] [address] [place] [id number] [address] [place] [address] Apr, Labyrinthitis of left ear H8 3.02 [facility] [address] [place] [id number] [address] [place] [address] Apr, Arthritis M19.90 and Labyrin thitis of left ear H83.02 [place] [address] [place] [id number] [address] [place] [address] Mar, Arthritis M19.90 and Labyrin thitis of left ear H83.02 [place] [address] [place] [id number] [address] [place] [address] 05 Mar, 2017 Chronic kidney disease, stag e 4 (severe) N18.4 [place] [address] [place] [id number] [place] [address] Feb, Arthritis M19.90 and Labyrin thitis of left ear H83.02 [place] [address] [address] Jan, Labyrinthitis of left ear H8 3.02 and 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 [place] [address] [place] [id number] [address] [place] [address] Dec, Arthritis M19.90 [place] [address] [place] [id number] [address] [place] [address] Dec, BPV (benign positional verti go), bilateral H81.13 [place] [address] [place] [id number] [address] [place] [address] Dec, [place] [address] [place] [id number] [address] [place] [address] Dec, [place] [address] [address] Dec, [facility] [address] [facility] [id number] [address] [place] [address] Nov, Arthritis M19.90 and Deficie ncy of other specified B group vitamins E53.8 [facility] [address] [facility] [id number] [address] [place] [address] Nov, Arthritis M19.90 [facility] [address] [facility] [id number] [address] [place] [address] Nov, Hyperparathyroidism E21.3 [facility] [address] [facility] [id number] [address] [place] [address] October, [facility] [address] [facility] [id number] [address] [place] [address] October, Hyperparathyroidism E21.3 [facility] [address] [facility] [id number] [address] [place] [address] October, [facility] [address] [facility] [id number] [address] [place] [address] October, Renal insufficiency N28.9 an d Hyperparathyroidism E21.3 [facility] [address] [facility] [id number] [address] [place] [address] October, [facility] [address] [facility] [id number] [address] [place] [address] October, Renal insufficiency N28.9 an d Hyperparathyroidism E21.3 [facility] [address] [facility] [id number] [address] [place] [address] October, Arthritis M19.90 [facility] [address] [facility] [id number] [address] [place] [address] Sep, [facility] [address] [facility] [id number] [address] [place] [address] Sep, Lumbar neuritis M54.16 ; Tho racic abscess J86.9 and 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 [facility] [address] [facility] [id number] [address] [place] [address] Sep, [facility] [address] [facility] [id number] [address] [place] [address] Aug, Arthritis M19.90 [facility] [address] [facility] [id number] [address] [place] [address] Aug, Hyperparathyroidism E21.3 [facility] [address] [facility] [id number] [address] [place] [address] Aug, Hyperparathyroidism E21.3 [facility] [address] [facility] [id number] [address] [place] [address] Aug, Arthritis M19.90 [facility] [address] [place] [id number] [address] [place] [address] Jul, Mass of throat R22.1 [facility] [address] [place] [id number] [address] [place] [address] Jul, [facility] [address] [place] [id number] [address] [place] [address] Jul, Arthritis M19.90 [facility] [id number] [place] [address] Jun, Arthritis M19.90 [facility] [address] [place] [id number] [address] [place] [address] Jun, [facility] [address] [place] [id number] [address] [place] [address] Jun, Renal insufficiency N28.9 an d 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 [facility] [address] [facility] [id number] [address] [place] [address] Jun, Medicare welcome exam Z00.00 ; Encounter for immunization Z23 ; Arthritis M19.90 ; Medicare annual wellness visit, initial Z00.00 ; Medicare annual wellness visit, subsequent Z00.00 and 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 [facility] [address] [facility] [id number] [address] [place] [address] 29 May, 2016 Renal insufficiency N28.9 an d 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 [facility] [address] [facility] [id number] [address] [place] [address] May, Renal insufficiency N28.9 [facility] [address] [facility] [id number] [address] [place] [address] 16 May, 2016 Renal insufficiency N28.9 [facility] [address] [facility] [id number] [address] [place] [phone] 14 May, 2016 [facility] [address] [facility] [id number] [address] [place] [address] Apr, [facility] [address] [facility] [id number] [address] [place] [address] 16 Apr, 2016 [facility] [address] [place] [id number] [address] [place] [address] 14 Apr, 2016 Mass of throat R22.1 [facility] [address] [facility] [id number] [address] [place] [address] 10 Apr, 2016 [facility] [address] [facility] [id number] [address] [place] [address] 10 Apr, 2016 Mass of throat R22.1 [facility] [address] [facility] [id number] [address] [place] [address] 04 Apr, 2016 Mass of throat R22.1 [facility] [address] [facility] [id number] [address] [place] [phone] Mar, [facility] [address] [facility] [id number] [address] [place] [address] Mar, [facility] [address] [place] [id number] [address] [place] [address] Mar, [facility] [address] [facility] [id number] [address] [place] [address] 24 Mar, 2016 Parathyroid abnormality E21. 5 and Encounter for immunization Z23 [facility] [address] [facility] [id number] [address] [place] [address] Mar, [facility] [address] [id number] [address] [place] [address] Mar, [facility] [address] [facility] [id number] [address] [place] [address] 21 Feb, 2016 Renal insufficiency N28.9 an d Hyperparathyroidism E21.3 [facility] [address] [id number] [address] [place] [address] 19 Feb, 2016 [facility] [address] [id number] [address] [place] [address] 15 Feb, 2016 Renal insufficiency N28.9 an d Hyperparathyroidism E21.3 [facility] [address] [facility] [id number] [address] [place] [id number] 14 Feb, 2016 [facility] [address] [id number] [address] [place] [phone] Feb, [facility] [address] [facility] [id number] [address] [place] [phone] 09 Feb, 2016 [facility] [address] [id number] [address] [place] [address] Jan, [facility] [address] [facility] [id number] [address] [place] [address] Jan, Arthritis M19.90 ; Lumbago w ith sciatica, right side M54.41 and Other chronic pain G89.29 [facility] [address] [facility] [id number] [address] [place] [address] Jan, [facility] [address] [facility] [id number] [address] [place] [address] Dec, Arthritis M19.90 ; Lumbago w ith sciatica, right side M54.41 and Other chronic pain G89.29 [facility] [address] [facility] [id number] [address] [place] [address] Nov, Deficiency of other specifie d B group vitamins E53.8 ; Primary insomnia F51.01 ; Mood disorder F39 and Lumbago with sciatica, right side M54.41 [facility] [id number] [place] [address] Nov, Hyperparathyroidism E21.3 [facility] [address] [place] [id number] [address] [place] [phone] Nov, Unspecified kidney failure N 19 and Hyperparathyroidism E21.3 [facility] [address] [place] [id number] [address] [place] [phone] October, Hyperparathyroidism E21.3 [facility] [address] [place] [id number] [place] [phone] October, [facility] [address] [id number] October, Hyperparathyroidism E21.3 [facility] [address] [id number] October, Hyperparathyroidism E21.3 [facility] [address] [place] [id number] [place] [phone] Sep, Hyperparathyroidism E21.3 ; Hypercholesterolemia E78.0 and Arthritis M19.90 [facility] [address] [place] [id number] [address] [place] [phone] Aug, [facility] [address] [id number] Aug, Deficiency of other specifie d B group vitamins E53.8 [facility] [address] [place] [id number] [address] [place] [id number] Aug, [facility] [address] [id number] Jul, Urinary frequency R35.0 [facility] [address] [place] [id number] [place] [phone] Jul, Urinary frequency R35.0 [facility] [address] [id number] Jul, [facility] [address] [id number] [address] [place] [id number] Jul, [facility] [address] [facility] [id number] [address] [place] [phone] Jun, Pain in left knee M25.562 [facility] [address] [id number] [address] [place] [id number] Jun, [facility] [address] [id number] [address] [place] [phone] May, Swelling of left knee joint M25.462 [facility] [address] [id number] [address] [place] [id number] May, [facility] [address] [facility] [id number] [address] [place] [address] May, [facility] [address] [facility] [id number] [address] [place] [address] May, [facility] [address] [facility] [id number] [address] [place] [address] Apr, Renal insufficiency N28.9 an d Chronic kidney disease, stage 4 (severe) N18.4 [facility] [address] [facility] [id number] [address] [place] [address] Apr, Unspecified kidney failure N 19 [facility] [address] [facility] [id number] [address] [place] [address] Apr, Unspecified kidney failure N 19 [facility] [address] [facility] [id number] [address] [place] [address] Apr, [facility] [address] [facility] [id number] [address] [place] [address] Apr, Hyperparathyroidism, unspeci fied 252.00 [facility] [address] [facility] [id number] [address] [place] [address] Apr, [facility] [address] [id number] [address] [place] [address] Mar, [facility] [address] [id number] [address] [place] [address] Mar, [facility] [address] [id number] [address] [place] [address] Mar, Hyperparathyroidism, unspeci fied 252.00 [facility] [address] [id number] [address] [place] [address] Feb, [facility] [address] [id number] [address] [place] [address] Feb, Otalgia 388.70 [facility] [address] [facility] [id number] [address] [place] [address] Feb, [facility] [address] [facility] [id number] [address] [place] [address] Feb, [facility] [address] [id number] [address] [place] [address] Jan, [facility] [address] [id number] [address] [place] [address] Jan, Hyperparathyroidism, unspeci fied 252.00 [facility] [address] [facility] [id number] [address] [place] [address] Jan, [facility] [address] [id number] [address] [place] [address] Jan, Other B-complex deficiencies 266.2 and Hyperparathyroidism, unspecified 252.00 [facility] [address] [id number] [address] [place] [address] Jan, [facility] [address] [facility] [id number] [address] [place] [address] Jan, [facility] [address] [facility] [id number] [address] [place] [address] Jan, [facility] [address] [facility] [id number] [address] [place] [address] Dec, [facility] [address] [id number] [address] [place] [address] Dec, [facility] [address] [id number] [address] [place] [address] Dec, [facility] [address] [id number] [address] [place] [address] Nov, Routine check-up V70.0 and P re-op exam V72.84 [facility] [address] [id number] [address] [place] [address] Nov, [facility] [address] [id number] [address] [place] [address] Nov, [facility] [address] [id number] [address] [place] [address] October, [facility] [address] [id number] [address] [place] [address] October, Other B-complex deficiencies 266.2 [facility] [address] [id number] [address] [place] [address] October, [facility] [address] [id number] [address] [place] [address] Sep, [facility] [address] [id number] [address] [place] [address] Sep, [facility] [address] [id number] [address] [place] [address] Aug, [facility] [address] [id number] [address] [place] [address] Aug, [facility] [address] [id number] [address] [place] [address] Aug, [facility] [address] [id number] [address] [place] [address] Aug, [facility] [address] [id number] [address] [place] [address] [place] [address] Aug, 2014 [facility] [address] [id number] [address] [place] [address], [place] [address] Aug, 2014 [facility] [address] [id number] [address] [place] [address], [place] [address] Jul, 2014 [facility] [address] [id number] [address] [place] [address], [place] [address] Jul, 2014 [facility] [address] [id number] [address] [place] [address], [place] [address] Jul, 2014 [facility] [address] [id number] [address] [place] [address], [place] [address] Jul, 2014 [facility] [address] [id number] [address] [place] [address], [place] [address] Jul, 2014 [facility] [address] [id number] [address] [place] [address], [place] [address] Jul, 2014 [facility] [address] [id number] [address] [place] [address], [place] [address] 10 Jul, 2014 [facility] [address] [id number] [address] [place] [address], [place] [address] 10 Jul, 2014 [facility] [address] [id number] [address] [place] [address], [place] [address] Jul, 2014 [facility] [address] [id number] [address] [place] [address], [place] [address] Jul, 2014 [facility] [address] [id number] [address] [place] [address], [place] [address] Jul, 2014 [facility] [address] [id number] [address] [place] [address], [place] [address] Jul, 2014 [facility] [address] [id number] [address] [place] [address] 02 Jul, 2014 [facility] [address] [id number] [address] [place] [address], [place] [address] Jul, [facility] [address] [id number] [address] [place] [address], [place] [address] Jun, [facility] [address] [id number] [address] [place] [address], [place] [address] Jun, [facility] [address] [id number] [address] [place] [address], [place] [address] Jun, [facility] [address] [id number] [address] [place] [address], [place] [address] Jun, [facility] [address] [id number] [address] [place] [address], [place] [address] Jun, [facility] [address] [id number] [address] [place] [address], [place] [address] Jun, [facility] [address] [id number] [address] [place] [address], [place] [address] Jun, [facility] [address] [id number] [address] [place] [address], [place] [address] Jun, [facility] [address] [id number] [address] [place] [address], [place] [address] Jun, [facility] [address] [id number] [address] [place] [address], [place] [address] Jun, [facility] [address] [id number] [address] [place] [address], [place] [address] Jun, [facility] [address] [id number] [address] [place] [address], [place] [address] Jun, [facility] [address] [id number] [address] [place] [address], [place] [address] Jun, [facility] [address] [id number] [address] [place] [address], [place] [address] Jun, [facility] [address] [id number] [address] [place] [address], [place] [address] May, [facility] [address] [id number] [address] [place] [address], [place] [address] 15 May, 2014 [facility] [address] [id number] [address] [place] [address], [place] [address] May, [facility] [address] [id number] [address] [place] [address], [place] [address] May, [facility] [address] [id number] [address] [place] [address], [place] [address] Apr, [facility] [address] [id number] [address] [place] [address], [place] [address] Apr, [facility] [address] [id number] [address] [place] [address], [place] [address] Apr, [facility] [address] [id number] [address] [place] [address], [place] [address] Apr, [facility] [address] [id number] [address] [place] [address], [place] [address] Apr, [facility] [address] [id number] [address] [place] [address], [place] [address] Apr, [facility] [address] [id number] [address] [place] [address], [place] [address] Mar, [facility] [address] [id number] [address] [place] [address], [place] [address] Mar, [facility] [address] [id number] [address] [place] [address], [place] [address] Mar, [facility] [address] [id number] [address] [place] [address], [place] [address] Mar, [facility] [address] [id number] [address] [place] [address], [place] [address] Mar, [facility] [address] [id number] [address] [place] [address], [place] [address] Mar, [facility] [address] [id number] [address] [place] [address], [place] [address] Mar, [facility] [address] [id number] [address] [place] [address], [place] [address] Mar, [facility] [address] [id number] [address] [place] [address], [place] [address] Mar, [facility] [address] [id number] [address] [place] [address], [place] [address] Mar, [facility] [address] [id number] [address] [place] [address], [place] [address] Mar, [facility] [address] [id number] [address] [place] [address], [place] [address] Mar, [facility] [address] [id number] [address] [place] [address], [place] [address] Mar, [facility] [address] [id number] [address] [place] [address], [place] [address] 26 Feb, 2013 [facility] [address] [id number] [address] [place] [address], [place] [address] 26 Feb, 2013 [facility] [address] [id number] [address] [place] [address], [place] [address] 23 Feb, 2013 [facility] [address] [id number] [address] [place] [address], [place] [address] 23 Feb, 2013 [facility] [address] [id number] [address] [place] [address] 19 Feb, 2013 [facility] [address] [id number] [address] [place] [address] 19 Feb, 2013 [facility] [address] [id number] [address] [place] [address], [place] [address] 13 Feb, 2013 [facility] [address] [id number] [address] [place] [address], [place] [address] 13 Feb, 2013 [facility] [address] [id number] [address] [place] [address] 12 Feb, 2013 [facility] [address] [id number] [address] [place] [address], [place] [address] Feb, [facility] [address] [id number] [address] [place] [address], [place] [address] Jan, [facility] [address] [id number] [address] [place] [address], [place] [address] Jan, [facility] [address] [id number] [address] [place] [address], [place] [address] Dec, [facility] [address] [id number] [address] [place] [address], [place] [address] Dec, [facility] [address] [id number] [address] [place] [address], [place] [address] Dec, [facility] [address] [id number] [address] [place] [address], [place] [address] Dec, [facility] [address] [id number] [address] [place] [address], [place] [address] Dec, [facility] [address] [id number] [address] [place] [address], [place] [address] Dec, [facility] [address] [id number] [address] [place] [address], [place] [address] Nov, [facility] [address] [id number] [address] [place] [address], [place] [address] Nov, [facility] [address] [id number] [address] [place] [address], [place] [address] Nov, [facility] [address] [id number] [address] [place] [address], [place] [address] Nov, [facility] [address] [id number] [address] [place] [address], [place] [address] October, [facility] [address] [id number] [address] [place] [address], [place] [address] October, [facility] [address] [id number] [address] [place] [address], [place] [address] October, [facility] [address] [id number] [facility] [place] [address] October, [facility] [address] [id number] [facility] [place] [address] October, [facility] [address] [id number] [facility] [place] [address] October, [facility] [address] [id number] [address] [place] [address], [place] [address] October, [facility] [address] [id number] [address] [place] [address], [place] [address] October, [facility] [address] [id number] [address] [place] [address], [place] [address] October, [facility] [address] [id number] [address] [place] [address], [place] [address] October, [facility] [address] [id number] [address] [place] [address], [place] [address] October, [facility] [address] [id number] [address] [place] [address], [place] [address] October, [facility] [address] [id number] [address] [place] [address], [place] [address] October, [facility] [address] [id number] [address] [place] [address], [place] [address] October, [facility] [address] [id number] [address] [place] [address], [place] [address] October, [facility] [address] [id number] [address] [place] [address], [place] [address] October, [facility] [address] [id number] [address] [place] [address], [place] [address] Sep, [facility] [address] [id number] [address] [place] [address], [place] [address] Sep, [facility] [address] [id number] [address] [place] [address], [place] [address] 14 Sep, 2013 [facility] [address] [id number] [facility] [place] [address] 14 Sep, 2013 [facility] [address] [id number] [facility] [place] [address] Sep, [facility] [address] [id number] [facility] [place] [address] Sep, [facility] [address] [id number] [address] [place] [address], [place] [address] Aug, [facility] [address] [id number] [address] [place] [address], [place] [address] Aug, [facility] [address] [id number] [address] [place] [address], [place] [address] Aug, [facility] [address] [id number] [address] [place] [address], [place] [address] Aug, [facility] [address] [id number] [address] [place] [address], [place] [address] Aug, [facility] [address] [id number] [address] [place] [address], [place] [address] Aug, [facility] [address] [id number] [address] [place] [address], [place] [address] Jul, [facility] [address] [id number] [address] [place] [address], [place] [address] Jul, [facility] [address] [id number] [address] [place] [address], [place] [address] Jul, [facility] [address] [id number] [address] [place] [address], [place] [address] Jul, [facility] [address] [id number] [address] [place] [address], [place] [address] Jun, [facility] [address] [id number] [address] [place] [address], [place] [address] Jun, [facility] [address] [id number] [address] [place] [address], [place] [address] 11 May, 2013 [facility] [address] [id number] [address] [place] [address], [place] [address] 11 May, 2013 [facility] [address] [id number] [address] [place] [address], [place] [address] 10 May, 2013 [facility] [address] [id number] [address] [place] [address], [place] [address] May, [facility] [address] [id number] [address] [place] [address], [place] [address] May, [facility] [address] [id number] [address] [place] [address], [place] [address] Apr, [facility] [address] [id number] [address] [place] [address], [place] [address] Apr, [facility] [address] [id number] [address] [place] [address], [place] [address] Apr, [facility] [address] [id number] [address] [place] [address], [place] [address] Apr, [facility] [address] [id number] [address] [place] [address], [place] [address] 04 Apr, 2013 [facility] [address] [id number] [address] [place] [address], [place] [address] 04 Apr, 2013 [facility] [address] [id number] [address] [place] [address], [place] [address] 15 Mar, 2013 [facility] [address] [id number] [address] [place] [address], [place] [address] 15 Mar, 2013 [facility] [address] [id number] [address] [place] [address], [place] [address] 14 Mar, 2013 [facility] [address] [id number] [address] [place] [address], [place] [address] 14 Mar, 2013 [facility] [address] [id number] [address] [place] [address], [place] [address] Mar, [facility] [address] [id number] [address] [place] [address], [place] [address] Mar, [facility] [address] [id number] [address] [place] [address], [place] [address] Feb, [facility] [address] [id number] [address] [place] [address], [place] [address] Feb, [facility] [address] [id number] [address] [place] [address], [place] [address] Feb, [facility] [address] [id number] [address] [place] [address], [place] [address] Jan, [facility] [address] [id number] [address] [place] [address], [place] [address] Jan, [facility] [address] [id number] [address] [place] [address], [place] [address] Jan, [facility] [address] [id number] [address] [place] [address], [place] [address] Jan, [facility] [address] [id number] [address] [place] [address], [place] [address] Jan, [facility] [address] [id number] [address] [place] [address], [place] [address] Jan, [facility] [address] [id number] [address] [place] [address], [place] [address] Dec, [facility] [address] [id number] [address] [place] [address], [place] [address] Dec, [facility] [address] [id number] [address] [place] [address], [place] [address] Dec, [facility] [address] [id number] [address] [place] [address], [place] [address] Dec, [facility] [address] [id number] [address] [place] [address], [place] [address] Dec, [facility] [address] [id number] [address] [place] [address], [place] [address] 09 Dec, 2012 [facility] [address] [id number] [address] [place] [address], [place] [address] 26 Nov, 2012 [facility] [address] [id number] [address] [place] [address], [place] [address] Nov, [facility] [address] [id number] [address] [place] [address], [place] [address] 18 Nov, 2012 [facility] [address] [id number] [address] [place] [address], [place] [address] 13 Nov, 2012 [facility] [address] [id number] [address] [place] [address], [place] [address] Nov, [facility] [address] [id number] [address] [place] [address], [place] [address] Nov, [facility] [address] [id number] [address] [place] [address], [place] [address] October, [facility] [address] [id number] [address] [place] [address], [place] [address] October, [facility] [address] [id number] [address] [place] [address], [place] [address] October, [facility] [address] [id number] [address] [place] [address], [place] [address] October, [facility] [address] [id number] [address] [place] [address], [place] [address] October, [facility] [address] [id number] [address] [place] [address], [place] [address] 30 Sep, 2012 [facility] [address] [id number] [address] [place] [address], [place] [address] 23 Sep, 2012 [facility] [address] [id number] [address] [place] [address], [place] [address] 19 Sep, 2012 [facility] [address] [id number] [address] [place] [address], [place] [address] 18 Sep, 2012 [facility] [address] [id number] [address] [place] [address], [place] [address] 09 Sep, 2012 [facility] [address] [id number] [address] [place] [address], [place] [address] 26 Aug, 2012 [facility] [address] [id number] [address] [place] [address], [place] [address] 07 Aug, 2012 [facility] [address] [id number] [address] [place] [address], [place] [address] 04 Aug, 2012 [facility] [address] [id number] [address] [place] [address], [place] [address] Jul, [facility] [address] [id number] [address] [place] [address], [place] [address] 20 Jul, 2012 [facility] [address] [id number] [address] [place] [address], [place] [address] Jul, [facility] [address] [id number] [address] [place] [address], [place] [address] 08 Jul, 2012 [facility] [address] [id number] [address] [place] [address], [place] [address] 06 Jul, 2012 [facility] [address] [id number] [address] [place] [address], [place] [id number] 05 Jul, 2012 [facility] [address] [id number] [address] [place] [address], [place] [id number] 15 Jun, 2012 [facility] [address] [id number] [address] [place] [address], [place] [address] Apr, [facility] [address] [id number] [address] [place] [address], [place] [address] Apr, [facility] [address] [id number] [address] [place] [address], [place] [address] Apr, [facility] [address] [id number] [address] [place] [address], [place] [address] Apr, [facility] [address] [id number] [address] [place] [address], [place] [address] Mar, [facility] [address] [id number] [address] [place] [address], [place] [address] Mar, [facility] [address] [id number] [address] [place] [address], [place] [address] Mar, [facility] [address] [id number] [address] [place] [address], [place] [address] Mar, [facility] [address] [id number] [address] [place] [address], [place] [address] Mar, [facility] [address] [id number] [address] [place] [address], [place] [address] Feb, [facility] [address] [id number] [address] [place] [address], [place] [address] Jan, [facility] [address] [id number] [address] [place] [address], [place] [address] Jan, [facility] [address] [id number] [address] [place] [address], [place] [address] Jan, [facility] [address] [id number] [address] [place] [address], [place] [address] Dec, [facility] [address] [id number] [address] [place] [address], [place] [address] Nov, [facility] [address] [id number] [address] [place] [address], [place] [address] Nov, [facility] [address] [id number] [address] [place] [id number] Nov, [facility] [address] [id number] [address] [place] [address], [place] [address] Nov, [facility] [address] [id number] [address] [place] [id number] Nov, [facility] [address] [id number] [address] [place] [address], [place] [address] October, [facility] [address] [id number] [address] [place] [id number] October, [facility] [address] [facility] [id number] [address] [place] [id number] October, [facility] [address] [facility] [id number] [address] [place] [id number] October, [facility] [address] [facility] [id number] [address] [place] [id number] October, IMMUNIZATIONS No Known Immunizations SOCIAL HISTORY Never Assessed REASON FOR VISIT PLAN OF CARE VITAL SIGNS MEDICATIONS Unknown Medications RESULTS No Results PROCEDURES Procedure Date Ordered Result Body Site PSYCHO TESTING BY TEASELER Apr 19, 2014 INSTRUCTIONS MEDICATIONS ADMINISTERED No Known Medications [...]
--- OUTSIDE RECORDS SUMMARY | 2020-01-25 07:46 | XMS REPORT ---
Author Author Velma CORDERO Organization [facility] Address [address] [place] [address] Care Team Providers Care Blocker Polishing Name Role Phone STEPHAN CORDERO Unavailable PROBLEMS Type Condition ICD9-CM Code [id number] Code Onset Dates Condition S tatus SNOMED Code Problem Primary insomnia F51.01 Active 397 2004 Problem Hypercholesteremia E78.0 Active 1 5068813 Problem Corns L84 Active 093026419 Problem Arthritis M19.90 Active 8025222 Problem Hyperparathyroidism E21.3 Active 03023291 Problem 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 Active 21242204 Problem 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 Active 91152334 Problem BPV (benign positional vertigo), bilateral H81.13 Active 541195328 Problem Unspecified kidney failure N19 Act chip 90558526 Problem Myalgia M79.1 Active 77168142 Problem 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 Active 705852158 Problem Mood disorder F39 Active 940928 05 Problem Chronic kidney disease, stage 4 (severe) N18.4 Active 359835357 Problem Primary osteoarthritis of left knee M17.12 Active 432358660886807 Problem Irritable bowel syndrome with both constipation and diarrh ea K58.2 Active 43031089 Problem Body mass index (BMI) of 40.0-44.9 in adult Z68.41 Active 427812797 ALLERGIES No Information ENCOUNTERS Encounter Location Date Diagnosis [facility] [address] [facility] [id number] [address] [place] [address] Dec, Arthritis M19.90 [facility] [address] [facility] [id number] [address] [place] [address] Nov, Inflammatory spondylopathy o f sacral region M46.98 [facility] [address] [facility] [id number] [address] [place] [address] Nov, [facility] [address] [facility] [id number] [address] [place] [address] Nov, Labyrinthitis of left ear H8 3.02 [facility] [address] [facility] [id number] [address] [place] [address] 03 Nov, 2018 Arthritis M19.90 [facility] [address] [facility] [id number] [address] [place] [address] 15 Sep, 2018 Arthritis M19.90 [facility] [address] [facility] [id number] [address] [place] [address] Sep, Renal insufficiency N28.9 an d Unspecified kidney failure N19 [facility] [address] [facility] [id number] [address] [place] [address] Sep, Renal insufficiency N28.9 an d Unspecified kidney failure N19 [facility] [address] [facility] [id number] [address] [place] [address] Sep, Arthritis M19.90 [facility] [address] [facility] [id number] [address] [place] [address] Aug, Exercise counseling Z71.82 [facility] [address] [facility] [id number] [address] [place] [address] Aug, [facility] [address] [facility] [id number] [address] [place] [address] Jul, Labyrinthitis of left ear H8 3.02 [facility] [address] [facility] [id number] [address] [place] [address] Jul, Labyrinthitis of left ear H8 3.02 [facility] [address] [facility] [id number] [address] [place] [address] Jul, Exercise counseling Z71.82 [facility] [address] [facility] [id number] [address] [place] [address] Jul, [facility] [address] [facility] [id number] [address] [place] [address] 14 Jul, 2018 Arthritis M19.90 [place] [id number] [facility] [id number] [address] [place] [address] 13 Jul, 2018 Encounter for Medicare annua l wellness exam Z00.00 ; Chronic kidney disease, stage 4 (severe) N18.4 ; Body mass index (BMI) of 40.0-44.9 in adult Z68.41 ; Hyperparathyroidism E21.3 and BMI 40.0-44.9, adult Z68.41 [place] [address] [facility] [id number] [address] [place] [address] 13 Jul, 2018 Encounter for Medicare annua l wellness exam Z00.00 ; Chronic kidney disease, stage 4 (severe) N18.4 ; Hyperparathyroidism E21.3 ; Body mass index (BMI) of 40.0-44.9 in adult Z68.41 and Encounter for immunization Z23 [place] [address] [place] [id number] [address] [place] [id number] 11 Jul, 2018 Tail bone pain M53.3 [place] [address] [place] [id number] [address] [place] [address] 29 Jun, 2018 Exercise counseling Z71.82 [place] [address] [place] [id number] [place] [address] Jun, Labyrinthitis of left ear H8 3.02 [place] [address] [place] [id number] [address] [place] [address] Jun, Tail bone pain M53.3 ; Irrit able bowel syndrome with both constipation and diarrhea K58.2 and Dysfunction of left eustachian tube H69.82 [place] [address] [facility] [id number] [address] [place] [address] Jun, Exercise counseling Z71.82 [place] [address] [place] [id number] [address] [place] [address] Jun, Arthritis M19.90 [place] [address] [place] [id number] [address] [place] [address] Jun, Irritable bowel syndrome wit h both constipation and diarrhea K58.2 ; Tail bone pain M53.3 and Dysfunction of left eustachian tube H69.82 [facility] [address] [id number] [address] [place] [address] Jun, Exercise counseling Z71.82 [facility] [address] [id number] [address] [place] [address] Jun, Exercise counseling Z71.82 [facility] [address] [id number] [address] [place] [address] Jun, Labyrinthitis of left ear H8 3.02 [place] [address] [id number] [address] [place] [address] May, Exercise counseling Z71.82 [place] [address] [id number] [address] [place] [address] May, Arthritis M19.90 [facility] [address] [id number] [address] [place] [address] May, Exercise counseling Z71.82 [facility] [address] [id number] [address] [place] [address] May, Exercise counseling Z71.82 [facility] [address] [id number] [address] [place] [address] May, Labyrinthitis of left ear H8 3.02 [facility] [address] [id number] [address] [place] [address] May, Exercise counseling Z71.82 [facility] [address] [id number] [address] [place] [address] Apr, Arthritis M19.90 [facility] [address] [id number] [address] [place] [address] Apr, Exercise counseling Z71.82 [facility] [address] [id number] [address] [place] [address] Apr, Exercise counseling Z71.82 [place] [address] [address] Apr, Primary osteoarthritis of le ft knee M17.12 [place] [address] [address] Apr, Labyrinthitis of left ear H8 3.02 [place] [address] [address] Mar, Arthritis M19.90 [place] [address] [address] Mar, [place] [address] [address] Mar, Chronic kidney disease, stag e 4 (severe) N18.4 [place] [address] [address] Mar, Chronic kidney disease, stag e 4 (severe) N18.4 [place] [address] [address] Mar, Labyrinthitis of left ear H8 3.02 [place] [address] [address] 05 Mar, 2018 Chronic kidney disease, stag e 4 (severe) N18.4 ; Knee pain, left anterior M25.562 ; 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 and Encounter for immunization Z23 [place] [address] [place] [id number] [address] [place] [address] Mar, Arthritis M19.90 [place] [address] [address] Feb, Labyrinthitis of left ear H8 3.02 [place] [address] [address] 06 Feb, 2018 Arthritis M19.90 [place] [address] [place] [id number] [address] [place] [address] Jan, Labyrinthitis of left ear H8 3.02 [facility] [address] [facility] [id number] [address] [place] [address] Jan, Arthritis M19.90 [facility] [address] [facility] [id number] [address] [place] [address] Dec, Labyrinthitis of left ear H8 3.02 [facility] [address] [facility] [id number] [address] [place] [address] Nov, Arthritis M19.90 [place] [address] [place] [id number] [address] [place] [address] Nov, Labyrinthitis of left ear H8 3.02 [place] [address] [place] [id number] [address] [place] [address] Nov, BMI 40.0-44.9, adult Z68.41 ; Chronic kidney disease, stage 4 (severe) N18.4 and Acute right-sided thoracic back pain M54.6 [place] [address] [place] [id number] [address] [place] [address] October, Labyrinthitis of left ear H8 3.02 and Arthritis M19.90 [place] [address] [place] [id number] [address] [place] [address] Sep, BPV (benign positional verti go), bilateral H81.13 ; Dysfunction of left eustachian tube H69.82 and BMI 40.0-44.9, adult Z68.41 [place] [address] [facility] [id number] [address] [place] [address] Sep, Labyrinthitis of left ear H8 3.02 and Arthritis M19.90 [place] [address] [facility] [id number] [address] [place] [address] Sep, [place] [address] [place] [id number] [address] [place] [address] Sep, [facility] [address] [id number] [address] [place] [address] Sep, Chronic kidney disease, stag e 4 (severe) N18.4 [facility] [address] [id number] [address] [place] [address] Sep, Chronic kidney disease, stag e 4 (severe) N18.4 [facility] [address] [id number] [address] [place] [address] Aug, Labyrinthitis of left ear H8 3.02 and Arthritis M19.90 [facility] [address] [id number] [address] [place] [address] Aug, [facility] [address] [id number] [address] [place] [address] Jul, [facility] [address] [facility] [id number] [address] [place] [address] Jul, Arthritis M19.90 and Labyrin thitis of left ear H83.02 [facility] [address] [id number] [address] [place] [address] Jul, [facility] [address] [id number] [address] [place] [address] Jun, [facility] [address] [id number] [address] [place] [address] Jun, Arthritis M19.90 and Labyrin thitis of left ear H83.02 [facility] [address] [facility] [id number] [address] [place] [address] Jun, Pre-op evaluation Z01.818 ; BMI 40.0-44.9, adult Z68.41 and Encounter for immunization Z23 [facility] [address] [facility] [id number] [address] [place] [address] May, Arthritis M19.90 and Labyrin thitis of left ear H83.02 [facility] [address] [place] [id number] [address] [place] [address] Apr, Labyrinthitis of left ear H8 3.02 [place] [address] [place] [id number] [address] [place] [address] Apr, Arthritis M19.90 and Labyrin thitis of left ear H83.02 [place] [address] [place] [id number] [address] [place] [address] Mar, Arthritis M19.90 and Labyrin thitis of left ear H83.02 [place] [address] [place] [id number] [address] [place] [address] Mar, Chronic kidney disease, stag e 4 (severe) N18.4 [place] [address] [place] [id number] [address] [place] [address] Feb, Arthritis M19.90 and Labyrin thitis of left ear H83.02 [place] [address] [place] [id number] [place] [address] Jan, Labyrinthitis of left ear H8 3.02 and 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 [place] [address] [place] [id number] [address] [place] [address] Dec, Arthritis M19.90 [place] [address] [place] [id number] [address] [place] [address] Dec, BPV (benign positional verti go), bilateral H81.13 [place] [address] [place] [id number] [address] [place] [address] Dec, [place] [address] [place] [id number] [address] [place] [address] Dec, [place] [address] [place] [id number] [address] [place] [address] Dec, [place] [address] [place] [id number] [address] [place] [address] Nov, Arthritis M19.90 and Deficie ncy of other specified B group vitamins E53.8 [facility] [address] [id number] [address] [place] [address] Nov, Arthritis M19.90 [facility] [address] [id number] [address] [place] [address] Nov, Hyperparathyroidism E21.3 [facility] [address] [facility] [id number] [address] [place] [address] October, [facility] [address] [id number] [address] [place] [address] October, Hyperparathyroidism E21.3 [facility] [address] [facility] [id number] [address] [place] [address] October, [facility] [address] [facility] [id number] [address] [place] [address] October, Renal insufficiency N28.9 an d Hyperparathyroidism E21.3 [facility] [address] [facility] [id number] [address] [place] [address] October, [facility] [address] [facility] [id number] [address] [place] [address] October, Renal insufficiency N28.9 an d Hyperparathyroidism E21.3 [facility] [address] [facility] [id number] [address] [place] [address] October, Arthritis M19.90 [facility] [address] [facility] [id number] [address] [place] [address] Sep, [facility] [address] [facility] [id number] [address] [place] [address] Sep, Lumbar neuritis M54.16 ; Tho racic abscess J86.9 and 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 [facility] [address] [id number] [address] [place] [address] Sep, [facility] [address] [facility] [id number] [address] [place] [address] Aug, Arthritis M19.90 [facility] [address] [facility] [id number] [address] [place] [address] Aug, Hyperparathyroidism E21.3 [facility] [address] [facility] [id number] [address] [place] [address] Aug, Hyperparathyroidism E21.3 [facility] [address] [facility] [id number] [address] [place] [address] Aug, Arthritis M19.90 [facility] [address] [facility] [id number] [address] [place] [address] Jul, Mass of throat R22.1 [facility] [address] [place] [id number] [address] [place] [address] Jul, [facility] [address] [address] Jul, Arthritis M19.90 [facility] [address] [place] [id number] [address] [place] [address] Jun, Arthritis M19.90 [facility] [address] [place] [id number] [address] [place] [address] Jun, [facility] [id number] [place] [address] Jun, Renal insufficiency N28.9 an d 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 [facility] [address] [facility] [id number] [address] [place] [address] 05 Jun, 2016 Medicare welcome exam Z00.00 ; Encounter for immunization Z23 ; Arthritis M19.90 ; Medicare annual wellness visit, initial Z00.00 ; Medicare annual wellness visit, subsequent Z00.00 and 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 [facility] [address] [facility] [id number] [address] [place] [address] May, Renal insufficiency N28.9 an d 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 [facility] [address] [facility] [id number] [address] [place] [address] 19 May, 2016 Renal insufficiency N28.9 [facility] [address] [facility] [id number] [address] [place] [address] 16 May, 2016 Renal insufficiency N28.9 [facility] [address] [facility] [id number] [address] [place] [address] 14 May, 2016 [facility] [address] [facility] [id number] [address] [place] [address] 16 Apr, 2016 [facility] [address] [facility] [id number] [address] [place] [address] 16 Apr, 2016 [facility] [address] [facility] [id number] [address] [place] [address] 14 Apr, 2016 Mass of throat R22.1 [facility] [address] [facility] [id number] [address] [place] [address] 10 Apr, 2016 [facility] [address] [facility] [id number] [address] [place] [address] 10 Apr, 2016 Mass of throat R22.1 [facility] [address] [facility] [id number] [address] [place] [address] 04 Apr, 2016 Mass of throat R22.1 [facility] [address] [facility] [id number] [address] [place] [address] 31 Mar, 2016 [facility] [address] [facility] [id number] [address] [place] [address] Mar, [facility] [address] [facility] [id number] [address] [place] [address] Mar, [facility] [address] [facility] [id number] [address] [place] [address] 24 Mar, 2016 Parathyroid abnormality E21. 5 and Encounter for immunization Z23 [facility] [address] [facility] [id number] [address] [place] [address] 17 Mar, 2016 [facility] [address] [facility] [id number] [address] [place] [address] Mar, [facility] [address] [id number] [address] [place] [address] 21 Feb, 2016 Renal insufficiency N28.9 an d Hyperparathyroidism E21.3 [facility] [address] [id number] [address] [place] [address] 19 Feb, 2016 [facility] [address] [id number] [address] [place] [address] 15 Feb, 2016 Renal insufficiency N28.9 an d Hyperparathyroidism E21.3 [facility] [address] [id number] [address] [place] [address] 14 Feb, 2016 [facility] [address] [id number] [address] [place] [address] 12 Feb, 2016 [facility] [address] [facility] [id number] [address] [place] [address] Feb, [facility] [address] [facility] [id number] [address] [place] [address] Jan, [facility] [address] [facility] [id number] [address] [place] [address] Jan, Arthritis M19.90 ; Lumbago w ith sciatica, right side M54.41 and Other chronic pain G89.29 [facility] [address] [facility] [id number] [address] [place] [address] Jan, [facility] [address] [facility] [id number] [address] [place] [address] Dec, Arthritis M19.90 ; Lumbago w ith sciatica, right side M54.41 and Other chronic pain G89.29 [facility] [address] [facility] [id number] [address] [place] [address] Nov, Deficiency of other specifie d B group vitamins E53.8 ; Primary insomnia F51.01 ; Mood disorder F39 and Lumbago with sciatica, right side M54.41 [facility] [address] [facility] [id number] [address] [place] [address] Nov, Hyperparathyroidism E21.3 [facility] [address] [facility] [id number] [address] [place] [address] Nov, Unspecified kidney failure N 19 and Hyperparathyroidism E21.3 [facility] [address] [facility] [id number] [address] [place] [address] October, Hyperparathyroidism E21.3 [facility] [address] [address] October, [facility] [address] [address] October, Hyperparathyroidism E21.3 [facility] [address] [address] October, Hyperparathyroidism E21.3 [facility] [address] [address] Sep, Hyperparathyroidism E21.3 ; Hypercholesterolemia E78.0 and Arthritis M19.90 [facility] [address] [address] Aug, [facility] [address] [address] Aug, Deficiency of other specifie d B group vitamins E53.8 [facility] [address] [place] [id number] [address] [place] [id number] Aug, [facility] [address] [id number] Jul, Urinary frequency R35.0 [facility] [address] [address] Jul, Urinary frequency R35.0 [facility] [address] [place] [id number] [address] [place] [id number] Jul, [facility] [address] [id number] Jul, [facility] [address] [id number] [address] [place] [id number] Jun, Pain in left knee M25.562 [facility] [address] [id number] [address] [place] [id number] Jun, [facility] [address] [id number] [address] [place] [id number] May, Swelling of left knee joint M25.462 [facility] [address] [id number] [address] [place] [id number] May, [facility] [address] [id number] [address] [place] [id number] May, [facility] [address] [facility] [id number] [address] [place] [id number] May, [facility] [address] [facility] [id number] [address] [place] [id number] Apr, Renal insufficiency N28.9 an d Chronic kidney disease, stage 4 (severe) N18.4 [facility] [address] [facility] [id number] [address] [place] [id number] Apr, Unspecified kidney failure N 19 [facility] [address] [facility] [id number] [address] [place] [id number] Apr, Unspecified kidney failure N 19 [facility] [address] [facility] [id number] [address] [place] [id number] Apr, [facility] [address] [facility] [id number] [address] [place] [id number] Apr, Hyperparathyroidism, unspeci fied 252.00 [facility] [address] [facility] [id number] [address] [place] [id number] Apr, [facility] [address] [facility] [id number] [address] [place] [id number] Mar, [facility] [address] [facility] [id number] [address] [place] [id number] Mar, [facility] [address] [id number] [address] [place] [address] Mar, Hyperparathyroidism, unspeci fied 252.00 [facility] [address] [id number] [address] [place] [address] Feb, [facility] [address] [facility] [id number] [address] [place] [address] Feb, Otalgia 388.70 [facility] [address] [facility] [id number] [address] [place] [address] Feb, [facility] [address] [facility] [id number] [address] [place] [address] Feb, [facility] [address] [facility] [id number] [address] [place] [address] Jan, [facility] [address] [facility] [id number] [address] [place] [address] Jan, Hyperparathyroidism, unspeci fied 252.00 [facility] [address] [id number] [address] [place] [id number] Jan, [facility] [address] [facility] [id number] [address] [place] [address] Jan, Other B-complex deficiencies 266.2 and Hyperparathyroidism, unspecified 252.00 [facility] [address] [facility] [id number] [address] [place] [address] Jan, [facility] [address] [facility] [id number] [address] [place] [address] Jan, [facility] [address] [facility] [id number] [address] [place] [id number] Jan, [facility] [address] [facility] [id number] [address] [place] [address] Dec, [facility] [address] [facility] [id number] [address] [place] [address] Dec, [facility] [address] [id number] [address] [place] [id number] Dec, [facility] [address] [id number] [address] [place] [address] Nov, Routine check-up V70.0 and P re-op exam V72.84 [facility] [address] [id number] [address] [place] [id number] Nov, [facility] [address] [id number] [address] [place] [address] Nov, [facility] [address] [id number] [address] [place] [address] October, [facility] [address] [id number] [address] [place] [address] October, Other B-complex deficiencies 266.2 [facility] [address] [id number] [address] [place] [address] October, [facility] [address] [id number] [address] [place] [address] Sep, [facility] [address] [id number] [address] [place] [address] Sep, [facility] [address] [id number] [address] [place] [address] Aug, [facility] [address] [id number] [address] [place] [address] Aug, [facility] [address] [id number] [address] [place] [address] Aug, [facility] [address] [id number] [address] [place] [id number] 17 Aug, 2014 [facility] [address] [id number] [address] [place] [address] Aug, [facility] [address] [id number] [address] [place] [id number] Aug, [facility] [address] [id number] [address] [place] [address], [place] [address] Jul, 2014 [facility] [address] [id number] [address] [place] [address], [place] [address] Jul, 2014 [facility] [address] [id number] [address] [place] [address], [place] [address] Jul, 2014 [facility] [address] [id number] [address] [place] [address], [place] [address] Jul, 2014 [facility] [address] [id number] [address] [place] [address], [place] [address] Jul, 2014 [facility] [address] [id number] [address] [place] [address], [place] [address] Jul, 2014 [facility] [address] [id number] [address] [place] [address], [place] [address] Jul, 2014 [facility] [address] [id number] [address] [place] [address], [place] [address] Jul, 2014 [facility] [address] [id number] [address] [place] [address], [place] [address] Jul, 2014 [facility] [address] [id number] [address] [place] [address], [place] [address] Jul, 2014 [facility] [address] [id number] [address] [place] [address], [place] [address] Jul, 2014 [facility] [address] [id number] [address] [place] [address], [place] [address] Jul, 2014 [facility] [address] [id number] [address] [place] [address], [place] [address] Jul, 2014 [facility] [address] [id number] [address] [place] [address], [place] [address] Jul, 2014 [facility] [address] [id number] [address] [place] [address], [place] [address] Jun, [facility] [address] [id number] [address] [place] [address], [place] [address] Jun, [facility] [address] [id number] [address] [place] [address], [place] [address] Jun, [facility] [address] [id number] [address] [place] [address], [place] [address] Jun, [facility] [address] [id number] [address] [place] [address], [place] [address] Jun, [facility] [address] [id number] [address] [place] [address], [place] [address] Jun, [facility] [address] [id number] [address] [place] [address], [place] [address] Jun, [facility] [address] [id number] [address] [place] [address], [place] [address] Jun, [facility] [address] [id number] [address] [place] [address], [place] [address] Jun, [facility] [address] [id number] [address] [place] [address], [place] [address] Jun, [facility] [address] [id number] [address] [place] [address], [place] [address] Jun, [facility] [address] [id number] [address] [place] [address], [place] [address] Jun, [facility] [address] [id number] [address] [place] [address] Jun, [facility] [address] [id number] [address] [place] [address], [place] [address] Jun, [facility] [address] [id number] [address] [place] [address], [place] [address] May, [facility] [address] [id number] [address] [place] [address], [place] [address] May, [facility] [address] [id number] [address] [place] [address] May, [facility] [address] [id number] [address] [place] [address], [place] [address] May, [facility] [address] [id number] [address] [place] [address], [place] [address] Apr, [facility] [address] [id number] [address] [place] [address], [place] [address] Apr, [facility] [address] [id number] [address] [place] [address], [place] [address] Apr, [facility] [address] [id number] [address] [place] [address], [place] [address] Apr, [facility] [address] [id number] [address] [place] [address], [place] [address] Apr, [facility] [address] [id number] [address] [place] [address], [place] [address] Apr, [facility] [address] [id number] [address] [place] [address], [place] [address] Mar, [facility] [address] [id number] [address] [place] [address], [place] [address] Mar, [facility] [address] [id number] [address] [place] [address], [place] [address] Mar, [facility] [address] [id number] [address] [place] [address], [place] [address] Mar, [facility] [address] [id number] [address] [place] [id number] 15 Mar, 2014 [facility] [address] [id number] [address] [place] [address], [place] [address] 15 Mar, 2014 [facility] [address] [id number] [address] [place] [id number] Mar, [facility] [address] [id number] [address] [place] [address] Mar, [facility] [address] [id number] [address] [place] [address], [place] [address] 07 Mar, 2013 [facility] [address] [id number] [address] [place] [address], [place] [address] 07 Mar, 2013 [facility] [address] [id number] [address] [place] [address], [place] [address] 07 Mar, 2013 [facility] [address] [id number] [address] [place] [address], [place] [address] 07 Mar, 2013 [facility] [address] [id number] [address] [place] [address], [place] [address] 06 Mar, 2013 [facility] [address] [id number] [address] [place] [address], [place] [address] 26 Feb, 2013 [facility] [address] [id number] [address] [place] [address], [place] [address] 26 Feb, 2013 [facility] [address] [id number] [address] [place] [address], [place] [address] 23 Feb, 2013 [facility] [address] [id number] [address] [place] [address], [place] [address] 23 Feb, 2013 [facility] [address] [id number] [address] [place] [address], [place] [address] 19 Feb, 2013 [facility] [address] [id number] [address] [place] [address], [place] [address] 19 Feb, 2013 [facility] [address] [id number] [address] [place] [address], [place] [address] 13 Feb, 2013 [facility] [address] [id number] [address] [place] [address], [place] [address] 13 Feb, 2013 [facility] [address] [id number] [address] [place] [address], [place] [address] 12 Feb, 2013 [facility] [address] [id number] [address] [place] [address], [place] [address] 12 Feb, 2013 [facility] [address] [id number] [address] [place] [address], [place] [address] Jan, [facility] [address] [id number] [facility] [place] [address] Jan, [facility] [address] [id number] [facility] [place] [address] Dec, [facility] [address] [id number] [facility] [place] [address] Dec, [facility] [address] [id number] [address] [place] [address], [place] [address] Dec, [facility] [address] [id number] [address] [place] [address], [place] [address] Dec, [facility] [address] [id number] [address] [place] [address], [place] [address] Dec, [facility] [address] [id number] [address] [place] [address], [place] [address] Dec, [facility] [address] [id number] [address] [place] [address], [place] [address] Nov, [facility] [address] [id number] [address] [place] [address], [place] [address] Nov, [facility] [address] [id number] [address] [place] [address], [place] [address] Nov, [facility] [address] [id number] [address] [place] [address], [place] [address] Nov, [facility] [address] [id number] [address] [place] [address], [place] [address] October, [facility] [address] [id number] [address] [place] [address], [place] [address] October, [facility] [address] [id number] [address] [place] [address], [place] [address] October, [facility] [address] [id number] [address] [place] [address], [place] [address] October, [facility] [address] [id number] [address] [place] [address], [place] [address] October, [facility] [address] [id number] [address] [place] [address], [place] [address] October, [facility] [address] [id number] [address] [place] [address], [place] [address] October, [facility] [address] [id number] [address] [place] [address], [place] [address] October, [facility] [address] [id number] [address] [place] [address], [place] [address] October, [facility] [address] [id number] [address] [place] [address], [place] [address] October, [facility] [address] [id number] [address] [place] [address], [place] [address] October, [facility] [address] [id number] [address] [place] [address], [place] [address] October, [facility] [address] [id number] [address] [place] [address], [place] [address] October, [facility] [address] [id number] [address] [place] [address], [place] [address] October, [facility] [address] [id number] [address] [place] [address], [place] [address] October, [facility] [address] [id number] [address] [place] [address], [place] [address] October, [facility] [address] [id number] [address] [place] [address], [place] [address] Sep, [facility] [address] [id number] [address] [place] [address], [place] [address] Sep, [facility] [address] [id number] [address] [place] [address], [place] [address] Sep, [facility] [address] [id number] [address] [place] [address], [place] [address] Sep, [facility] [address] [id number] [address] [place] [address], [place] [address] Sep, [facility] [address] [id number] [address] [place] [address], [place] [address] Sep, [facility] [address] [id number] [address] [place] [address], [place] [address] Aug, [facility] [address] [id number] [address] [place] [address], [place] [address] Aug, [facility] [address] [id number] [address] [place] [address], [place] [address] Aug, [facility] [address] [id number] [address] [place] [address], [place] [address] Aug, [facility] [address] [id number] [address] [place] [address], [place] [address] Aug, [facility] [address] [id number] [address] [place] [address], [place] [address] Aug, [facility] [address] [id number] [address] [place] [address], [place] [address] Jul, [facility] [address] [id number] [address] [place] [address], [place] [address] Jul, [facility] [address] [id number] [address] [place] [address], [place] [address] Jul, [facility] [address] [id number] [address] [place] [address], [place] [address] Jul, [facility] [address] [id number] [address] [place] [address], [place] [address] Jun, [facility] [address] [id number] [address] [place] [address], [place] [address] Jun, [facility] [address] [id number] [address] [place] [address], [place] [address] May, [facility] [address] [id number] [address] [place] [id number] 11 May, 2013 [facility] [address] [id number] [address] [place] [address], [place] [address] 10 May, 2013 [facility] [address] [id number] [address] [place] [id number] May, [facility] [address] [id number] [address] [place] [address] May, [facility] [address] [id number] [address] [place] [id number] Apr, [facility] [address] [id number] [address] [place] [address] Apr, [facility] [address] [id number] [address] [place] [address] Apr, [facility] [address] [id number] [address] [place] [id number] Apr, [facility] [address] [id number] [address] [place] [address] Apr, [facility] [address] [id number] [address] [place] [id number] 04 Apr, 2013 [facility] [address] [id number] [address] [place] [address] 15 Mar, 2013 [facility] [address] [id number] [address] [place] [id number] 15 Mar, 2013 [facility] [address] [id number] [address] [place] [id number] 14 Mar, 2013 [facility] [address] [id number] [address] [place] [id number] 14 Mar, 2013 [facility] [address] [id number] [address] [place] [address] 11 Mar, 2013 [facility] [address] [id number] [address] [place] [id number] 11 Mar, 2013 [facility] [address] [id number] [facility] [place] [address] Feb, [facility] [address] [id number] [address] [place] [address], [place] [address] Feb, [facility] [address] [id number] [address] [place] [address], [place] [address] Feb, [facility] [address] [id number] [address] [place] [address], [place] [address] Jan, [facility] [address] [id number] [address] [place] [address], [place] [address] Jan, [facility] [address] [id number] [address] [place] [address], [place] [address] Jan, [facility] [address] [id number] [address] [place] [address], [place] [address] Jan, [facility] [address] [id number] [address] [place] [address], [place] [address] Jan, [facility] [address] [id number] [address] [place] [address], [place] [address] Jan, [facility] [address] [id number] [address] [place] [address], [place] [id number] Dec, [facility] [address] [id number] [address] [place] [address], [place] [address] Dec, [facility] [address] [id number] [address] [place] [address], [place] [id number] Dec, [facility] [address] [id number] [address] [place] [address], [place] [address] Dec, [facility] [address] [id number] [address] [place] [address], [place] [id number] Dec, [facility] [address] [id number] [address] [place] [address], [place] [id number] Dec, [facility] [address] [id number] [address] [place] [address], [place] [id number] 26 Nov, 2012 [facility] [address] [id number] [address] [place] [address], [place] [id number] 19 Nov, 2012 [facility] [address] [id number] [address] [place] [address], [place] [id number] 18 Nov, 2012 [facility] [address] [id number] [address] [place] [address], [place] [id number] 13 Nov, 2012 [facility] [address] [id number] [address] [place] [address], [place] [id number] Nov, [facility] [address] [id number] [address] [place] [address], [place] [address] Nov, [facility] [address] [id number] [address] [place] [address], [place] [id number] October, [facility] [address] [id number] [address] [place] [address], [place] [address] October, [facility] [address] [id number] [address] [place] [address], [place] [address] October, [facility] [address] [id number] [address] [place] [address], [place] [address] October, [facility] [address] [id number] [address] [place] [address], [place] [id number] October, [facility] [address] [id number] [address] [place] [address], [place] [id number] 30 Sep, 2012 [facility] [address] [id number] [address] [place] [address], [place] [id number] Sep, [facility] [address] [id number] [address] [place] [address], [place] [id number] Sep, [facility] [address] [id number] [address] [place] [address], [place] [id number] 18 Sep, 2012 [facility] [address] [id number] [address] [place] [address], [place] [id number] Sep, [facility] [address] [id number] [address] [place] [address], [place] [id number] 26 Aug, 2012 [facility] [address] [id number] [address] [place] [address], [place] [id number] 07 Aug, 2012 [facility] [address] [id number] [address] [place] [address], [place] [id number] 04 Aug, 2012 [facility] [address] [id number] [address] [place] [address], [place] [id number] 21 Jul, 2012 [facility] [address] [id number] [address] [place] [address], [place] [id number] 20 Jul, 2012 [facility] [address] [id number] [address] [place] [address], [place] [address] 11 Jul, 2012 [facility] [address] [id number] [address] [place] [address], [place] [address] 08 Jul, 2012 [facility] [address] [id number] [address] [place] [address], [place] [id number] 06 Jul, 2012 [facility] [address] [id number] [address] [place] [address], [place] [address] 05 Jul, 2012 [facility] [address] [id number] [address] [place] [address], [place] [id number] 15 Jun, 2012 [facility] [address] [id number] [address] [place] [address], [place] [id number] 16 Apr, 2012 [facility] [address] [id number] [address] [place] [address], [place] [id number] 16 Apr, 2012 [facility] [address] [id number] [address] [place] [address], [place] [id number] Apr, [facility] [address] [id number] [address] [place] [address], [place] [id number] Apr, [facility] [address] [id number] [address] [place] [address], [place] [address] Mar, [facility] [address] [id number] [address] [place] [address], [place] [id number] Mar, [facility] [address] [id number] [address] [place] [address], [place] [address] Mar, [facility] [address] [id number] [address] [place] [address], [place] [id number] Mar, [facility] [address] [id number] [address] [place] [address], [place] [id number] Mar, [facility] [address] [id number] [address] [place] [address], [place] [id number] Feb, [facility] [address] [id number] [address] [place] [address], [place] [address] Jan, [facility] [address] [id number] [address] [place] [address], [place] [id number] Jan, [facility] [address] [id number] [address] [place] [address], [place] [address] Jan, [facility] [address] [id number] [address] [place] [address], [place] [address] Dec, [facility] [address] [id number] [address] [place] [address], [place] [id number] Nov, [facility] [address] [id number] [address] [place] [address], [place] [id number] Nov, [facility] [address] [id number] [address] [place] [address], [place] [address] Nov, [facility] [address] [id number] [address] [place] [id number] Nov, [facility] [address] [address] [id number] [address] [place] [address], [place] [id number] Nov, [facility] [address] [id number] [address] [place] [address], [place] [id number] October, [facility] [address] [id number] [address] [place] [address], [place] [id number] October, [facility] [address] [id number] [address] [place] [id number] October, [facility] [address] [facility] [id number] [address] [place] [id number] October, [facility] [address] [facility] [id number] [address] [place] [id number] October, IMMUNIZATIONS No Known Immunizations SOCIAL HISTORY [...]
--- OUTSIDE RECORDS SUMMARY | 2020-01-25 07:46 | XMS REPORT ---
Author Author Velma CORDERO Organization [facility] Address [address] [place] [address] Care Team Providers Care Tourist Camp Attendant Name Role Phone STEPHAN CORDERO Unavailable PROBLEMS Type Condition ICD9-CM Code [id number] Code Onset Dates Condition S tatus SNOMED Code Problem Primary insomnia F51.01 Active 397 2004 Problem Hypercholesteremia E78.0 Active 1 2271737 Problem Corns L84 Active 891001413 Problem Arthritis M19.90 Active 7126293 Problem Hyperparathyroidism E21.3 Active 21059484 Problem 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 Active 20473419 Problem 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 Active 99761791 Problem BPV (benign positional vertigo), bilateral H81.13 Active 156014881 Problem Unspecified kidney failure N19 Act chip 97325909 Problem Myalgia M79.1 Active 58183162 Problem 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 Active 069817784 Problem Mood disorder F39 Active 634903 05 Problem Chronic kidney disease, stage 4 (severe) N18.4 Active 227906687 Problem Primary osteoarthritis of left knee M17.12 Active 240229226926179 Problem Irritable bowel syndrome with both constipation and diarrh ea K58.2 Active 55762046 Problem Body mass index (BMI) of 40.0-44.9 in adult Z68.41 Active 093648997 ALLERGIES No Information ENCOUNTERS Encounter Location Date Diagnosis [facility] [address] [facility] [id number] [address] [place] [phone] Dec, Arthritis M19.90 [facility] [address] [facility] [id number] [address] [place] [id number] Nov, Inflammatory spondylopathy o f sacral region M46.98 [facility] [address] [facility] [id number] [address] [place] [id number] Nov, [facility] [address] [facility] [id number] [address] [place] [phone] Nov, Labyrinthitis of left ear H8 3.02 [facility] [address] [facility] [id number] [address] [place] [phone] 03 Nov, 2018 Arthritis M19.90 [facility] [address] [facility] [id number] [address] [place] [id number] 15 Sep, 2018 Arthritis M19.90 [facility] [address] [facility] [id number] [address] [place] [id number] Sep, Renal insufficiency N28.9 an d Unspecified kidney failure N19 [facility] [address] [facility] [id number] [address] [place] [phone] Sep, Renal insufficiency N28.9 an d Unspecified kidney failure N19 [facility] [address] [facility] [id number] [address] [place] [id number] Sep, Arthritis M19.90 [facility] [address] [facility] [id number] [address] [place] [phone] Aug, Exercise counseling Z71.82 [facility] [address] [facility] [id number] [address] [place] [phone] Aug, [facility] [address] [facility] [id number] [address] [place] [id number] Jul, Labyrinthitis of left ear H8 3.02 [facility] [address] [facility] [id number] [address] [place] [id number] Jul, Labyrinthitis of left ear H8 3.02 [facility] [address] [facility] [id number] [address] [place] [id number] Jul, Exercise counseling Z71.82 [facility] [address] [facility] [id number] [address] [place] [id number] Jul, [facility] [address] [facility] [id number] [address] [place] [id number] 14 Jul, 2018 Arthritis M19.90 [place] [id number] [facility] [id number] [address] [place] [id number] 13 Jul, 2018 Encounter for Medicare annua l wellness exam Z00.00 ; Chronic kidney disease, stage 4 (severe) N18.4 ; Body mass index (BMI) of 40.0-44.9 in adult Z68.41 ; Hyperparathyroidism E21.3 and BMI 40.0-44.9, adult Z68.41 [place] [address] [facility] [id number] [address] [place] [id number] 13 Jul, 2018 Encounter for Medicare annua l wellness exam Z00.00 ; Chronic kidney disease, stage 4 (severe) N18.4 ; Hyperparathyroidism E21.3 ; Body mass index (BMI) of 40.0-44.9 in adult Z68.41 and Encounter for immunization Z23 [place] [address] [place] [id number] [address] [place] [id number] 11 Jul, 2018 Tail bone pain M53.3 [place] [address] [place] [id number] [address] [place] [phone] 29 Jun, 2018 Exercise counseling Z71.82 [place] [address] [place] [id number] [place] [phone] Jun, Labyrinthitis of left ear H8 3.02 [place] [address] [place] [id number] [address] [place] [phone] Jun, Tail bone pain M53.3 ; Irrit able bowel syndrome with both constipation and diarrhea K58.2 and Dysfunction of left eustachian tube H69.82 [place] [address] [facility] [id number] [address] [place] [id number] Jun, Exercise counseling Z71.82 [place] [address] [place] [id number] [address] [place] [id number] Jun, Arthritis M19.90 [place] [address] [place] [id number] [address] [place] [phone] Jun, Irritable bowel syndrome wit h both constipation and diarrhea K58.2 ; Tail bone pain M53.3 and Dysfunction of left eustachian tube H69.82 [facility] [address] [id number] [address] [place] [id number] Jun, Exercise counseling Z71.82 [facility] [address] [id number] [address] [place] [id number] Jun, Exercise counseling Z71.82 [facility] [address] [id number] [address] [place] [id number] Jun, Labyrinthitis of left ear H8 3.02 [place] [address] [id number] [address] [place] [phone] May, Exercise counseling Z71.82 [place] [address] [id number] [address] [place] [id number] May, Arthritis M19.90 [facility] [address] [id number] [address] [place] [id number] May, Exercise counseling Z71.82 [facility] [address] [id number] [address] [place] [phone] May, Exercise counseling Z71.82 [facility] [address] [id number] [address] [place] [phone] May, Labyrinthitis of left ear H8 3.02 [facility] [address] [id number] [address] [place] [id number] May, Exercise counseling Z71.82 [facility] [address] [id number] [address] [place] [id number] Apr, Arthritis M19.90 [facility] [address] [id number] [address] [place] [phone] Apr, Exercise counseling Z71.82 [facility] [address] [id number] [address] [place] [phone] Apr, Exercise counseling Z71.82 [place] [address] [address] Apr, Primary osteoarthritis of le ft knee M17.12 [place] [address] [id number] Apr, Labyrinthitis of left ear H8 3.02 [place] [address] [id number] Mar, Arthritis M19.90 [place] [address] [id number] Mar, [place] [address] [id number] Mar, Chronic kidney disease, stag e 4 (severe) N18.4 [place] [address] [id number] Mar, Chronic kidney disease, stag e 4 (severe) N18.4 [place] [address] [id number] Mar, Labyrinthitis of left ear H8 3.02 [place] [address] [id number] 05 Mar, 2018 Chronic kidney disease, stag e 4 (severe) N18.4 ; Knee pain, left anterior M25.562 ; 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 and Encounter for immunization Z23 [place] [address] [place] [id number] [address] [place] [id number] Mar, Arthritis M19.90 [place] [address] [address] Feb, Labyrinthitis of left ear H8 3.02 [place] [address] [id number] 06 Feb, 2018 Arthritis M19.90 [place] [address] [place] [id number] [address] [place] [phone] Jan, Labyrinthitis of left ear H8 3.02 [facility] [address] [facility] [id number] [address] [place] [phone] Jan, Arthritis M19.90 [facility] [address] [facility] [id number] [address] [place] [phone] Dec, Labyrinthitis of left ear H8 3.02 [facility] [address] [facility] [id number] [address] [place] [id number] Nov, Arthritis M19.90 [place] [address] [place] [id number] [address] [place] [phone] Nov, Labyrinthitis of left ear H8 3.02 [place] [address] [place] [id number] [address] [place] [phone] Nov, BMI 40.0-44.9, adult Z68.41 ; Chronic kidney disease, stage 4 (severe) N18.4 and Acute right-sided thoracic back pain M54.6 [place] [address] [place] [id number] [address] [place] [id number] October, Labyrinthitis of left ear H8 3.02 and Arthritis M19.90 [place] [address] [place] [id number] [address] [place] [phone] Sep, BPV (benign positional verti go), bilateral H81.13 ; Dysfunction of left eustachian tube H69.82 and BMI 40.0-44.9, adult Z68.41 [place] [address] [facility] [id number] [address] [place] [id number] Sep, Labyrinthitis of left ear H8 3.02 and Arthritis M19.90 [place] [id number] [facility] [id number] [address] [place] [phone] Sep, [place] [address] [place] [id number] [address] [place] [phone] Sep, [facility] [address] [id number] [address] [place] [id number] Sep, Chronic kidney disease, stag e 4 (severe) N18.4 [facility] [address] [id number] [address] [place] [id number] Sep, Chronic kidney disease, stag e 4 (severe) N18.4 [facility] [address] [id number] [address] [place] [id number] Aug, Labyrinthitis of left ear H8 3.02 and Arthritis M19.90 [facility] [address] [id number] [address] [place] [phone] Aug, [facility] [address] [id number] [address] [place] [id number] Jul, [facility] [address] [facility] [id number] [address] [place] [id number] Jul, Arthritis M19.90 and Labyrin thitis of left ear H83.02 [facility] [address] [id number] [address] [place] [phone] Jul, [facility] [address] [id number] [address] [place] [phone] Jun, [facility] [address] [id number] [address] [place] [id number] Jun, Arthritis M19.90 and Labyrin thitis of left ear H83.02 [facility] [address] [facility] [id number] [address] [place] [phone] Jun, Pre-op evaluation Z01.818 ; BMI 40.0-44.9, adult Z68.41 and Encounter for immunization Z23 [facility] [address] [facility] [id number] [address] [place] [id number] May, Arthritis M19.90 and Labyrin thitis of left ear H83.02 [facility] [address] [place] [id number] [address] [place] [id number] Apr, Labyrinthitis of left ear H8 3.02 [place] [address] [place] [id number] [address] [place] [id number] Apr, Arthritis M19.90 and Labyrin thitis of left ear H83.02 [place] [address] [place] [id number] [address] [place] [id number] Mar, Arthritis M19.90 and Labyrin thitis of left ear H83.02 [place] [address] [place] [id number] [address] [place] [id number] Mar, Chronic kidney disease, stag e 4 (severe) N18.4 [place] [address] [place] [id number] [address] [place] [id number] Feb, Arthritis M19.90 and Labyrin thitis of left ear H83.02 [place] [address] [place] [id number] [place] [phone] Jan, Labyrinthitis of left ear H8 3.02 and 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 [place] [address] [place] [id number] [address] [place] [id number] Dec, Arthritis M19.90 [place] [address] [place] [id number] [address] [place] [id number] Dec, BPV (benign positional verti go), bilateral H81.13 [place] [address] [place] [id number] [address] [place] [phone] Dec, [place] [address] [place] [id number] [address] [place] [phone] Dec, [place] [address] [place] [id number] [address] [place] [phone] Dec, [place] [address] [place] [id number] [address] [place] [id number] Nov, Arthritis M19.90 and Deficie ncy of other specified B group vitamins E53.8 [facility] [address] [id number] [address] [place] [phone] Nov, Arthritis M19.90 [facility] [address] [id number] [address] [place] [id number] Nov, Hyperparathyroidism E21.3 [facility] [address] [facility] [id number] [address] [place] [phone] October, [facility] [address] [id number] [address] [place] [id number] October, Hyperparathyroidism E21.3 [facility] [address] [facility] [id number] [address] [place] [phone] October, [facility] [address] [facility] [id number] [address] [place] [phone] October, Renal insufficiency N28.9 an d Hyperparathyroidism E21.3 [facility] [address] [facility] [id number] [address] [place] [phone] October, [facility] [address] [facility] [id number] [address] [place] [phone] October, Renal insufficiency N28.9 an d Hyperparathyroidism E21.3 [facility] [address] [facility] [id number] [address] [place] [id number] October, Arthritis M19.90 [facility] [address] [facility] [id number] [address] [place] [id number] Sep, [facility] [address] [facility] [id number] [address] [place] [phone] Sep, Lumbar neuritis M54.16 ; Tho racic abscess J86.9 and 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 [facility] [address] [id number] [address] [place] [phone] Sep, [facility] [address] [facility] [id number] [address] [place] [id number] Aug, Arthritis M19.90 [facility] [address] [facility] [id number] [address] [place] [phone] Aug, Hyperparathyroidism E21.3 [facility] [address] [facility] [id number] [address] [place] [phone] Aug, Hyperparathyroidism E21.3 [facility] [address] [facility] [id number] [address] [place] [phone] Aug, Arthritis M19.90 [facility] [address] [facility] [id number] [address] [place] [phone] Jul, Mass of throat R22.1 [facility] [address] [place] [id number] [address] [place] [phone] Jul, [facility] [address] [address] Jul, Arthritis M19.90 [facility] [address] [place] [id number] [address] [place] [phone] Jun, Arthritis M19.90 [facility] [address] [place] [id number] [address] [place] [phone] Jun, [facility] [id number] [place] [id number] Jun, Renal insufficiency N28.9 an d 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 [facility] [address] [facility] [id number] [address] [place] [id number] 05 Jun, 2016 Medicare welcome exam Z00.00 ; Encounter for immunization Z23 ; Arthritis M19.90 ; Medicare annual wellness visit, initial Z00.00 ; Medicare annual wellness visit, subsequent Z00.00 and 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 [facility] [address] [facility] [id number] [address] [place] [id number] May, Renal insufficiency N28.9 an d 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 [facility] [address] [facility] [id number] [address] [place] [id number] 19 May, 2016 Renal insufficiency N28.9 [facility] [address] [facility] [id number] [address] [place] [id number] 16 May, 2016 Renal insufficiency N28.9 [facility] [address] [facility] [id number] [address] [place] [id number] 14 May, 2016 [facility] [address] [facility] [id number] [address] [place] [phone] 16 Apr, 2016 [facility] [address] [facility] [id number] [address] [place] [phone] 16 Apr, 2016 [facility] [address] [facility] [id number] [address] [place] [phone] 14 Apr, 2016 Mass of throat R22.1 [facility] [address] [facility] [id number] [address] [place] [phone] 10 Apr, 2016 [facility] [address] [facility] [id number] [address] [place] [id number] 10 Apr, 2016 Mass of throat R22.1 [facility] [address] [facility] [id number] [address] [place] [phone] 04 Apr, 2016 Mass of throat R22.1 [facility] [address] [facility] [id number] [address] [place] [id number] 31 Mar, 2016 [facility] [address] [facility] [id number] [address] [place] [id number] Mar, [facility] [address] [facility] [id number] [address] [place] [id number] Mar, [facility] [address] [facility] [id number] [address] [place] [phone] 24 Mar, 2016 Parathyroid abnormality E21. 5 and Encounter for immunization Z23 [facility] [address] [facility] [id number] [address] [place] [id number] 17 Mar, 2016 [facility] [address] [facility] [id number] [address] [place] [phone] Mar, [facility] [address] [id number] [address] [place] [phone] 21 Feb, 2016 Renal insufficiency N28.9 an d Hyperparathyroidism E21.3 [facility] [address] [id number] [address] [place] [phone] 19 Feb, 2016 [facility] [address] [id number] [address] [place] [id number] 15 Feb, 2016 Renal insufficiency N28.9 an d Hyperparathyroidism E21.3 [facility] [address] [id number] [address] [place] [phone] 14 Feb, 2016 [facility] [address] [id number] [address] [place] [phone] 12 Feb, 2016 [facility] [address] [facility] [id number] [address] [place] [phone] Feb, [facility] [address] [facility] [id number] [address] [place] [phone] Jan, [facility] [address] [facility] [id number] [address] [place] [id number] Jan, Arthritis M19.90 ; Lumbago w ith sciatica, right side M54.41 and Other chronic pain G89.29 [facility] [address] [facility] [id number] [address] [place] [id number] Jan, [facility] [address] [facility] [id number] [address] [place] [phone] Dec, Arthritis M19.90 ; Lumbago w ith sciatica, right side M54.41 and Other chronic pain G89.29 [facility] [address] [facility] [id number] [address] [place] [id number] Nov, Deficiency of other specifie d B group vitamins E53.8 ; Primary insomnia F51.01 ; Mood disorder F39 and Lumbago with sciatica, right side M54.41 [facility] [address] [facility] [id number] [address] [place] [id number] Nov, Hyperparathyroidism E21.3 [facility] [address] [facility] [id number] [address] [place] [phone] Nov, Unspecified kidney failure N 19 and Hyperparathyroidism E21.3 [facility] [address] [facility] [id number] [address] [place] [id number] October, Hyperparathyroidism E21.3 [facility] [address] [id number] October, [facility] [address] [phone] October, Hyperparathyroidism E21.3 [facility] [address] [id number] October, Hyperparathyroidism E21.3 [facility] [address] [phone] Sep, Hyperparathyroidism E21.3 ; Hypercholesterolemia E78.0 and Arthritis M19.90 [facility] [address] [id number] Aug, [facility] [address] [id number] Aug, Deficiency of other specifie d B group vitamins E53.8 [facility] [address] [place] [id number] [address] [place] [id number] Aug, [facility] [address] [id number] Jul, Urinary frequency R35.0 [facility] [address] [id number] Jul, Urinary frequency R35.0 [facility] [address] [place] [id number] [address] [place] [id number] Jul, [facility] [address] [id number] Jul, [facility] [address] [id number] [address] [place] [id number] Jun, Pain in left knee M25.562 [facility] [address] [id number] [address] [place] [id number] Jun, [facility] [address] [id number] [address] [place] [id number] May, Swelling of left knee joint M25.462 [facility] [address] [id number] [address] [place] [id number] May, [facility] [address] [id number] [address] [place] [id number] May, [facility] [address] [facility] [id number] [address] [place] [id number] May, [facility] [address] [facility] [id number] [address] [place] [id number] Apr, Renal insufficiency N28.9 an d Chronic kidney disease, stage 4 (severe) N18.4 [facility] [address] [facility] [id number] [address] [place] [id number] Apr, Unspecified kidney failure N 19 [facility] [address] [facility] [id number] [address] [place] [id number] Apr, Unspecified kidney failure N 19 [facility] [address] [facility] [id number] [address] [place] [phone] Apr, [facility] [address] [facility] [id number] [address] [place] [phone] Apr, Hyperparathyroidism, unspeci fied 252.00 [facility] [address] [facility] [id number] [address] [place] [phone] Apr, [facility] [address] [facility] [id number] [address] [place] [phone] Mar, [facility] [address] [facility] [id number] [address] [place] [phone] Mar, [facility] [address] [id number] [address] [place] [phone] Mar, Hyperparathyroidism, unspeci fied 252.00 [facility] [address] [id number] [address] [place] [phone] Feb, [facility] [address] [facility] [id number] [address] [place] [phone] Feb, Otalgia 388.70 [facility] [address] [facility] [id number] [address] [place] [phone] Feb, [facility] [address] [facility] [id number] [address] [place] [phone] Feb, [facility] [address] [facility] [id number] [address] [place] [id number] Jan, [facility] [address] [facility] [id number] [address] [place] [phone] Jan, Hyperparathyroidism, unspeci fied 252.00 [facility] [address] [id number] [address] [place] [phone] Jan, [facility] [address] [facility] [id number] [address] [place] [phone] Jan, Other B-complex deficiencies 266.2 and Hyperparathyroidism, unspecified 252.00 [facility] [address] [facility] [id number] [address] [place] [phone] Jan, [facility] [address] [facility] [id number] [address] [place] [phone] Jan, [facility] [address] [facility] [id number] [address] [place] [phone] Jan, [facility] [address] [facility] [id number] [address] [place] [id number] Dec, [facility] [address] [facility] [id number] [address] [place] [phone] Dec, [facility] [address] [id number] [address] [place] [phone] Dec, [facility] [address] [id number] [address] [place] [phone] Nov, Routine check-up V70.0 and P re-op exam V72.84 [facility] [place] [address] [id number] [address] [place] [phone] Nov, [facility] [address] [id number] [address] [place] [phone] Nov, [facility] [address] [id number] [address] [place] [phone] October, [facility] [address] [id number] [address] [place] [phone] October, Other B-complex deficiencies 266.2 [facility] [address] [id number] [address] [place] [phone] October, [facility] [address] [id number] [address] [place] [phone] Sep, [facility] [address] [id number] [address] [place] [phone] Sep, [facility] [address] [id number] [address] [place] [phone] Aug, [facility] [address] [id number] [address] [place] [phone] Aug, [facility] [address] [id number] [address] [place] [phone] Aug, [facility] [address] [id number] [address] [place] [phone] 17 Aug, 2014 [facility] [address] [id number] [address] [place] [phone] Aug, [facility] [address] [id number] [address] [place] [phone] Aug, [facility] [address] [id number] [address] [place] [address], [place] [address] Jul, 2014 [facility] [address] [id number] [address] [place] [address], [place] [address] Jul, 2014 [facility] [address] [id number] [address] [place] [address], [place] [address] Jul, 2014 [facility] [address] [id number] [address] [place] [address], [place] [address] Jul, 2014 [facility] [address] [id number] [address] [place] [address], [place] [address] Jul, 2014 [facility] [address] [id number] [address] [place] [address], [place] [address] Jul, 2014 [facility] [address] [id number] [address] [place] [address], [place] [address] Jul, 2014 [facility] [address] [id number] [address] [place] [address], [place] [address] Jul, 2014 [facility] [address] [id number] [address] [place] [address], [place] [address] Jul, 2014 [facility] [address] [id number] [address] [place] [address], [place] [address] Jul, 2014 [facility] [address] [id number] [address] [place] [address], [place] [address] Jul, 2014 [facility] [address] [id number] [address] [place] [address], [place] [address] Jul, 2014 [facility] [address] [id number] [address] [place] [address], [place] [address] Jul, 2014 [facility] [address] [id number] [address] [place] [address], [place] [address] Jul, 2014 [facility] [address] [id number] [address] [place] [address], [place] [address] Jun, [facility] [address] [id number] [address] [place] [address], [place] [address] Jun, [facility] [address] [id number] [address] [place] [address], [place] [address] Jun, [facility] [address] [id number] [address] [place] [address], [place] [address] Jun, [facility] [address] [id number] [address] [place] [address], [place] [address] Jun, [facility] [address] [id number] [address] [place] [address], [place] [address] Jun, [facility] [address] [id number] [address] [place] [address], [place] [address] Jun, [facility] [address] [id number] [address] [place] [address], [place] [address] Jun, [facility] [address] [id number] [address] [place] [address], [place] [address] Jun, [facility] [address] [id number] [address] [place] [address], [place] [address] Jun, [facility] [address] [id number] [address] [place] [address], [place] [address] Jun, [facility] [address] [id number] [address] [place] [address], [place] [address] Jun, [facility] [address] [id number] [address] [place] [phone] Jun, [facility] [address] [id number] [address] [place] [address], [place] [address] Jun, [facility] [address] [id number] [address] [place] [address], [place] [address] May, [facility] [address] [id number] [address] [place] [address], [place] [address] May, [facility] [address] [id number] [address] [place] [phone] May, [facility] [address] [id number] [address] [place] [address], [place] [address] May, [facility] [address] [id number] [address] [place] [address], [place] [address] Apr, [facility] [address] [id number] [address] [place] [address], [place] [address] Apr, [facility] [address] [id number] [address] [place] [address], [place] [address] Apr, [facility] [address] [id number] [address] [place] [address], [place] [address] Apr, [facility] [address] [id number] [address] [place] [address], [place] [address] Apr, [facility] [address] [id number] [address] [place] [address], [place] [address] Apr, [facility] [address] [id number] [address] [place] [address], [place] [address] Mar, [facility] [address] [id number] [address] [place] [address], [place] [address] Mar, [facility] [address] [id number] [address] [place] [address], [place] [address] Mar, [facility] [address] [id number] [address] [place] [address], [place] [address] Mar, [facility] [address] [id number] [address] [place] [id number] 15 Mar, 2014 [facility] [address] [id number] [address] [place] [address], [place] [address] 15 Mar, 2014 [facility] [address] [id number] [address] [place] [id number] Mar, [facility] [address] [id number] [address] [place] [id number] Mar, [facility] [address] [id number] [address] [place] [address], [place] [address] 07 Mar, 2013 [facility] [address] [id number] [address] [place] [address], [place] [address] 07 Mar, 2013 [facility] [address] [id number] [address] [place] [address], [place] [address] 07 Mar, 2013 [facility] [address] [id number] [address] [place] [address], [place] [address] 07 Mar, 2013 [facility] [address] [id number] [address] [place] [address], [place] [address] 06 Mar, 2013 [facility] [address] [id number] [address] [place] [address], [place] [address] 26 Feb, 2013 [facility] [address] [id number] [address] [place] [address], [place] [address] 26 Feb, 2013 [facility] [address] [id number] [address] [place] [address], [place] [address] 23 Feb, 2013 [facility] [address] [id number] [address] [place] [address], [place] [address] 23 Feb, 2013 [facility] [address] [id number] [address] [place] [address], [place] [address] 19 Feb, 2013 [facility] [address] [id number] [address] [place] [address], [place] [address] 19 Feb, 2013 [facility] [address] [id number] [address] [place] [address], [place] [address] 13 Feb, 2013 [facility] [address] [id number] [address] [place] [address], [place] [address] 13 Feb, 2013 [facility] [address] [id number] [address] [place] [address], [place] [address] 12 Feb, 2013 [facility] [address] [id number] [address] [place] [address], [place] [address] 12 Feb, 2013 [facility] [address] [id number] [address] [place] [address], [place] [address] Jan, [facility] [address] [id number] [facility] [place] [address] Jan, [facility] [address] [id number] [facility] [place] [address] Dec, [facility] [address] [id number] [facility] [place] [address] Dec, [facility] [address] [id number] [address] [place] [address], [place] [address] Dec, [facility] [address] [id number] [address] [place] [address], [place] [address] Dec, [facility] [address] [id number] [address] [place] [address], [place] [address] Dec, [facility] [address] [id number] [address] [place] [address], [place] [address] Dec, [facility] [address] [id number] [address] [place] [address], [place] [address] Nov, [facility] [address] [id number] [address] [place] [address], [place] [address] Nov, [facility] [address] [id number] [address] [place] [address], [place] [address] Nov, [facility] [address] [id number] [address] [place] [address], [place] [address] Nov, [facility] [address] [id number] [address] [place] [address], [place] [address] October, [facility] [address] [id number] [address] [place] [address], [place] [address] October, [facility] [address] [id number] [address] [place] [address], [place] [address] October, [facility] [address] [id number] [address] [place] [address], [place] [address] October, [facility] [address] [id number] [address] [place] [address], [place] [address] October, [facility] [address] [id number] [address] [place] [address], [place] [address] October, [facility] [address] [id number] [address] [place] [address], [place] [address] October, [facility] [address] [id number] [address] [place] [address], [place] [address] October, [facility] [address] [id number] [address] [place] [address], [place] [address] October, [facility] [address] [id number] [address] [place] [address], [place] [address] October, [facility] [address] [id number] [address] [place] [address], [place] [address] October, [facility] [address] [id number] [address] [place] [address], [place] [address] October, [facility] [address] [id number] [address] [place] [address], [place] [address] October, [facility] [address] [id number] [address] [place] [address], [place] [address] October, [facility] [address] [id number] [address] [place] [address], [place] [address] October, [facility] [address] [id number] [address] [place] [address], [place] [address] October, [facility] [address] [id number] [address] [place] [address], [place] [address] Sep, [facility] [address] [id number] [address] [place] [address], [place] [address] Sep, [facility] [address] [id number] [address] [place] [address], [place] [address] Sep, [facility] [address] [id number] [address] [place] [address], [place] [address] Sep, [facility] [address] [id number] [address] [place] [address], [place] [address] Sep, [facility] [address] [id number] [address] [place] [address], [place] [address] Sep, [facility] [address] [id number] [address] [place] [address], [place] [address] Aug, [facility] [address] [id number] [address] [place] [address], [place] [address] Aug, [facility] [address] [id number] [address] [place] [address], [place] [address] Aug, [facility] [address] [id number] [address] [place] [address], [place] [address] Aug, [facility] [address] [id number] [address] [place] [address], [place] [address] Aug, [facility] [address] [id number] [address] [place] [address], [place] [address] Aug, [facility] [address] [id number] [address] [place] [address], [place] [address] Jul, [facility] [address] [id number] [address] [place] [address], [place] [address] Jul, [facility] [address] [id number] [address] [place] [address], [place] [address] Jul, [facility] [address] [id number] [address] [place] [address], [place] [address] Jul, [facility] [address] [id number] [address] [place] [address], [place] [address] Jun, [facility] [address] [id number] [address] [place] [address], [place] [address] Jun, [facility] [address] [id number] [address] [place] [address], [place] [address] May, [facility] [address] [id number] [address] [place] [id number] 11 May, 2013 [facility] [address] [id number] [address] [place] [address], [place] [address] 10 May, 2013 [facility] [address] [id number] [address] [place] [id number] May, [facility] [address] [id number] [address] [place] [id number] May, [facility] [address] [id number] [address] [place] [id number] Apr, [facility] [address] [id number] [address] [place] [id number] Apr, [facility] [address] [id number] [address] [place] [id number] Apr, [facility] [address] [id number] [address] [place] [id number] Apr, [facility] [address] [id number] [address] [place] [id number] Apr, [facility] [address] [id number] [address] [place] [id number] 04 Apr, 2013 [facility] [address] [id number] [address] [place] [id number] 15 Mar, 2013 [facility] [address] [id number] [address] [place] [id number] 15 Mar, 2013 [facility] [address] [id number] [address] [place] [id number] 14 Mar, 2013 [facility] [address] [id number] [address] [place] [id number] 14 Mar, 2013 [facility] [address] [id number] [address] [place] [id number] 11 Mar, 2013 [facility] [address] [id number] [address] [place] [id number] 11 Mar, 2013 [facility] [address] [id number] [facility] [place] [address] Feb, [facility] [address] [id number] [address] [place] [address], [place] [id number] Feb, [facility] [address] [id number] [address] [place] [address], [place] [address] Feb, [facility] [address] [id number] [address] [place] [address], [place] [id number] Jan, [facility] [address] [id number] [address] [place] [address], [place] [address] Jan, [facility] [address] [id number] [address] [place] [address], [place] [address] Jan, [facility] [address] [id number] [address] [place] [address], [place] [id number] Jan, [facility] [address] [id number] [address] [place] [address], [place] [address] Jan, [facility] [address] [id number] [address] [place] [address], [place] [address] Jan, [facility] [address] [id number] [address] [place] [address], [place] [id number] Dec, [facility] [address] [id number] [address] [place] [address], [place] [address] Dec, [facility] [address] [id number] [address] [place] [address], [place] [address] Dec, [facility] [address] [id number] [address] [place] [address], [place] [id number] Dec, [facility] [address] [id number] [address] [place] [address], [place] [address] Dec, [facility] [address] [id number] [address] [place] [address], [place] [address] Dec, [facility] [address] [id number] [address] [place] [address], [place] [id number] 26 Nov, 2012 [facility] [address] [id number] [address] [place] [address], [place] [id number] 19 Nov, 2012 [facility] [address] [id number] [address] [place] [address], [place] [id number] 18 Nov, 2012 [facility] [address] [id number] [address] [place] [address], [place] [id number] 13 Nov, 2012 [facility] [address] [id number] [address] [place] [address], [place] [address] Nov, [facility] [address] [id number] [address] [place] [address], [place] [address] Nov, [facility] [address] [id number] [address] [place] [address], [place] [address] October, [facility] [address] [id number] [address] [place] [address], [place] [address] October, [facility] [address] [id number] [address] [place] [address], [place] [address] October, [facility] [address] [id number] [address] [place] [address], [place] [address] October, [facility] [address] [id number] [address] [place] [address], [place] [address] October, [facility] [address] [id number] [address] [place] [address], [place] [id number] 30 Sep, 2012 [facility] [address] [id number] [address] [place] [address], [place] [address] Sep, [facility] [address] [id number] [address] [place] [address], [place] [address] Sep, [facility] [address] [id number] [address] [place] [address], [place] [id number] 18 Sep, 2012 [facility] [address] [id number] [address] [place] [address], [place] [address] Sep, [facility] [address] [id number] [address] [place] [address], [place] [address] 26 Aug, 2012 [facility] [address] [id number] [address] [place] [address], [place] [id number] 07 Aug, 2012 [facility] [address] [id number] [address] [place] [address], [place] [id number] 04 Aug, 2012 [facility] [address] [id number] [address] [place] [address], [place] [address] 21 Jul, 2012 [facility] [address] [id number] [address] [place] [address], [place] [id number] 20 Jul, 2012 [facility] [address] [id number] [address] [place] [address], [place] [id number] 11 Jul, 2012 [facility] [address] [id number] [address] [place] [address], [place] [id number] 08 Jul, 2012 [facility] [address] [id number] [address] [place] [address], [place] [address] 06 Jul, 2012 [facility] [address] [id number] [address] [place] [address], [place] [id number] 05 Jul, 2012 [facility] [address] [id number] [address] [place] [address], [place] [id number] 15 Jun, 2012 [facility] [address] [id number] [address] [place] [address], [place] [id number] 16 Apr, 2012 [facility] [address] [id number] [address] [place] [address], [place] [id number] 16 Apr, 2012 [facility] [address] [id number] [address] [place] [address], [place] [id number] Apr, [facility] [address] [id number] [address] [place] [address], [place] [address] Apr, [facility] [address] [id number] [address] [place] [address], [place] [id number] Mar, [facility] [address] [id number] [address] [place] [address], [place] [id number] Mar, [facility] [address] [id number] [address] [place] [address], [place] [id number] Mar, [facility] [address] [id number] [address] [place] [address], [place] [id number] Mar, [facility] [address] [id number] [address] [place] [address], [place] [id number] Mar, [facility] [address] [id number] [address] [place] [address], [place] [id number] Feb, [facility] [address] [id number] [address] [place] [address], [place] [id number] Jan, [facility] [address] [id number] [address] [place] [address], [place] [id number] Jan, [facility] [address] [id number] [address] [place] [address], [place] [id number] Jan, [facility] [address] [id number] [address] [place] [address], [place] [address] Dec, [facility] [address] [id number] [address] [place] [address], [place] [id number] Nov, [facility] [address] [id number] [address] [place] [address], [place] [id number] Nov, [facility] [address] [id number] [address] [place] [address], [place] [id number] Nov, [facility] [address] [id number] [address] [place] [id number] Nov, [facility] [address] [id number] [address] [place] [address], [place] [id number] Nov, [facility] [address] [id number] [address] [place] [address], [place] [id number] October, [facility] [address] [id number] [address] [place] [address], [place] [id number] October, [facility] [address] [id number] [address] [place] [id number] October, [facility] [address] [facility] [id number] [address] [place] [id number] October, [facility] [address] [facility] [id number] [address] [place] [id number] October, IMMUNIZATIONS No Known Immunizations SOCIAL HISTORY [...]
--- OUTSIDE RECORDS SUMMARY | 2020-01-25 07:47 | XMS REPORT ---
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41 Active 628704260 ALLERGIES No Information ENCOUNTERS Encounter Location Date Diagnosis [facility] [address] [facility] [id number] [address] [place] [phone] Dec, Arthritis M19.90 [facility] [address] [facility] [id number] [address] [place] [phone] Nov, Inflammatory spondylopathy o f sacral region M46.98 [facility] [address] [facility] [id number] [address] [place] [phone] Nov, [facility] [address] [id number] [address] [place] [phone] Nov, Labyrinthitis of left ear H8 3.02 [facility] [address] [id number] [address] [place] [phone] 03 Nov, 2018 Arthritis M19.90 [facility] [address] [id number] [address] [place] [phone] Sep, Arthritis M19.90 [facility] [address] [id number] [address] [place] [phone] Sep, Renal insufficiency N28.9 an d Unspecified kidney failure N19 [facility] [address] [id number] [address] [place] [phone] Sep, Renal insufficiency N28.9 an d Unspecified kidney failure N19 [facility] [address] [facility] [id number] [address] [place] [phone] Sep, Arthritis M19.90 [facility] [address] [id number] [address] [place] [phone] Aug, Exercise counseling Z71.82 [facility] [address] [facility] [id number] [address] [place] [phone] Aug, [facility] [address] [facility] [id number] [address] [place] [phone] Jul, Labyrinthitis of left ear H8 3.02 [facility] [address] [facility] [id number] [address] [place] [phone] Jul, Labyrinthitis of left ear H8 3.02 [facility] [address] [facility] [id number] [address] [place] [phone] Jul, Exercise counseling Z71.82 [facility] [address] [id number] [address] [place] [phone] Jul, [facility] [address] [facility] [id number] [address] [place] [id number] 14 Jul, 2018 Arthritis M19.90 [place] [address] [facility] [id number] [address] [place] [id number] 13 Jul, 2018 Encounter for Medicare annua l wellness exam Z00.00 ; Chronic kidney disease, stage 4 (severe) N18.4 ; Body mass index (BMI) of 40.0-44.9 in adult Z68.41 ; Hyperparathyroidism E21.3 and BMI 40.0-44.9, adult Z68.41 [place] [address] [facility] [id number] [address] [place] [id number] 13 Jul, 2018 Encounter for Medicare annua l wellness exam Z00.00 ; Chronic kidney disease, stage 4 (severe) N18.4 ; Hyperparathyroidism E21.3 ; Body mass index (BMI) of 40.0-44.9 in adult Z68.41 and Encounter for immunization Z23 [place] [address] [facility] [id number] [address] [place] [phone] 11 Jul, 2018 Tail bone pain M53.3 [place] [address] [facility] [id number] [address] [place] [phone] Jun, Exercise counseling Z71.82 [place] [address] [facility] [id number] [address] [place] [phone] Jun, Labyrinthitis of left ear H8 3.02 [place] [address] [facility] [id number] [address] [place] [phone] Jun, Tail bone pain M53.3 ; Irrit able bowel syndrome with both constipation and diarrhea K58.2 and Dysfunction of left eustachian tube H69.82 [place] [address] [facility] [id number] [address] [place] [phone] Jun, Exercise counseling Z71.82 [place] [address] [facility] [id number] [address] [place] [phone] Jun, Arthritis M19.90 [place] [address] [facility] [id number] [address] [place] [phone] Jun, Irritable bowel syndrome wit h both constipation and diarrhea K58.2 ; Tail bone pain M53.3 and Dysfunction of left eustachian tube H69.82 [facility] [address] [id number] [address] [place] [phone] Jun, Exercise counseling Z71.82 [facility] [address] [id number] [address] [place] [phone] Jun, Exercise counseling Z71.82 [facility] [address] [id number] [address] [place] [phone] Jun, Labyrinthitis of left ear H8 3.02 [place] [address] [id number] [address] [place] [phone] May, Exercise counseling Z71.82 [place] [address] [id number] [address] [place] [phone] May, Arthritis M19.90 [place] [address] [id number] [address] [place] [phone] May, Exercise counseling Z71.82 [place] [address] [id number] [address] [place] [address] May, Exercise counseling Z71.82 [place] [address] [id number] [address] [place] [phone] May, Labyrinthitis of left ear H8 3.02 [facility] [address] [id number] [address] [place] [address] May, Exercise counseling Z71.82 [place] [address] [id number] [address] [place] [address] Apr, Arthritis M19.90 [facility] [address] [id number] [address] [place] [phone] Apr, Exercise counseling Z71.82 [place] [address] [id number] [address] [place] [address] Apr, Exercise counseling Z71.82 [place] [address] [place] [id number] [address] [place] [phone] Apr, Primary osteoarthritis of le ft knee M17.12 [place] [address] [address] Apr, Labyrinthitis of left ear H8 3.02 [place] [address] [address] Mar, Arthritis M19.90 [place] [address] [address] Mar, [place] [address] [address] Mar, Chronic kidney disease, stag e 4 (severe) N18.4 [place] [address] [address] Mar, Chronic kidney disease, stag e 4 (severe) N18.4 [place] [address] [address] Mar, Labyrinthitis of left ear H8 3.02 [place] [address] [address] 05 Mar, 2018 Chronic kidney disease, stag e 4 (severe) N18.4 ; Knee pain, left anterior M25.562 ; 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 and Encounter for immunization Z23 [place] [address] [place] [id number] [address] [place] [address] Mar, Arthritis M19.90 [place] [address] [address] Feb, Labyrinthitis of left ear H8 3.02 [place] [address] [address] Feb, Arthritis M19.90 [place] [address] [place] [id number] [address] [place] [phone] Jan, Labyrinthitis of left ear H8 3.02 [facility] [address] [facility] [id number] [address] [place] [phone] Jan, Arthritis M19.90 [place] [address] [facility] [id number] [address] [place] [phone] Dec, Labyrinthitis of left ear H8 3.02 [facility] [address] [id number] [address] [place] [phone] Nov, Arthritis M19.90 [place] [address] [facility] [id number] [address] [place] [phone] Nov, Labyrinthitis of left ear H8 3.02 [place] [address] [facility] [id number] [address] [place] [address] Nov, BMI 40.0-44.9, adult Z68.41 ; Chronic kidney disease, stage 4 (severe) N18.4 and Acute right-sided thoracic back pain M54.6 [place] [address] [place] [id number] [address] [place] [phone] October, Labyrinthitis of left ear H8 3.02 and Arthritis M19.90 [place] [address] [place] [id number] [address] [place] [phone] Sep, BPV (benign positional verti go), bilateral H81.13 ; Dysfunction of left eustachian tube H69.82 and BMI 40.0-44.9, adult Z68.41 [place] [address] [id number] [address] [place] [phone] Sep, Labyrinthitis of left ear H8 3.02 and Arthritis M19.90 [place] [address] [id number] [address] [place] [phone] Sep, [place] [address] [facility] [id number] [address] [place] [phone] Sep, [facility] [address] [facility] [id number] [address] [place] [phone] Sep, Chronic kidney disease, stag e 4 (severe) N18.4 [facility] [address] [id number] [address] [place] [id number] Sep, Chronic kidney disease, stag e 4 (severe) N18.4 [facility] [address] [id number] [address] [place] [phone] Aug, Labyrinthitis of left ear H8 3.02 and Arthritis M19.90 [facility] [address] [facility] [id number] [address] [place] [phone] Aug, [facility] [address] [facility] [id number] [address] [place] [phone] Jul, [facility] [address] [facility] [id number] [address] [place] [id number] Jul, Arthritis M19.90 and Labyrin thitis of left ear H83.02 [facility] [address] [facility] [id number] [address] [place] [phone] Jul, [facility] [address] [facility] [id number] [address] [place] [phone] Jun, [facility] [address] [facility] [id number] [address] [place] [phone] Jun, Arthritis M19.90 and Labyrin thitis of left ear H83.02 [facility] [address] [facility] [id number] [address] [place] [phone] Jun, Pre-op evaluation Z01.818 ; BMI 40.0-44.9, adult Z68.41 and Encounter for immunization Z23 [facility] [address] [facility] [id number] [address] [place] [phone] May, Arthritis M19.90 and Labyrin thitis of left ear H83.02 [facility] [address] [place] [id number] [address] [place] [phone] Apr, Labyrinthitis of left ear H8 3.02 [facility] [address] [facility] [id number] [address] [place] [phone] Apr, Arthritis M19.90 and Labyrin thitis of left ear H83.02 [place] [address] [place] [id number] [address] [place] [phone] Mar, Arthritis M19.90 and Labyrin thitis of left ear H83.02 [place] [address] [place] [id number] [address] [place] [address] Mar, Chronic kidney disease, stag e 4 (severe) N18.4 [place] [address] [place] [id number] [address] [place] [phone] Feb, Arthritis M19.90 and Labyrin thitis of left ear H83.02 [place] [address] [place] [id number] [address] [place] [phone] Jan, Labyrinthitis of left ear H8 3.02 and 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 [place] [address] [place] [id number] [address] [place] [phone] Dec, Arthritis M19.90 [place] [address] [place] [id number] [address] [place] [phone] Dec, BPV (benign positional verti go), bilateral H81.13 [place] [address] [place] [id number] [address] [place] [phone] Dec, [place] [address] [place] [id number] [address] [place] [phone] Dec, [place] [address] [place] [id number] [address] [place] [phone] Dec, [place] [address] [place] [id number] [address] [place] [phone] Nov, Arthritis M19.90 and Deficie ncy of other specified B group vitamins E53.8 [facility] [address] [id number] [address] [place] [phone] Nov, Arthritis M19.90 [facility] [address] [id number] [address] [place] [phone] Nov, Hyperparathyroidism E21.3 [facility] [address] [facility] [id number] [address] [place] [phone] October, [facility] [address] [id number] [address] [place] [phone] October, Hyperparathyroidism E21.3 [facility] [address] [facility] [id number] [address] [place] [phone] October, [facility] [address] [facility] [id number] [address] [place] [phone] October, Renal insufficiency N28.9 an d Hyperparathyroidism E21.3 [facility] [address] [id number] [address] [place] [phone] October, [facility] [address] [facility] [id number] [address] [place] [phone] October, Renal insufficiency N28.9 an d Hyperparathyroidism E21.3 [facility] [address] [facility] [id number] [address] [place] [phone] October, Arthritis M19.90 [facility] [address] [facility] [id number] [address] [place] [phone] Sep, [facility] [address] [facility] [id number] [address] [place] [phone] Sep, Lumbar neuritis M54.16 ; Tho racic abscess J86.9 and 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 [facility] [address] [id number] [address] [place] [phone] Sep, [facility] [address] [facility] [id number] [address] [place] [phone] Aug, Arthritis M19.90 [facility] [address] [facility] [id number] [address] [place] [id number] Aug, Hyperparathyroidism E21.3 [facility] [address] [facility] [id number] [address] [place] [phone] Aug, Hyperparathyroidism E21.3 [facility] [address] [facility] [id number] [address] [place] [address] Aug, Arthritis M19.90 [facility] [address] [facility] [id number] [address] [place] [phone] Jul, Mass of throat R22.1 [facility] [address] [address] Jul, [facility] [address] [place] [address] Jul, Arthritis M19.90 [facility] [id number] [place] [address] Jun, Arthritis M19.90 [facility] [id number] [place] [address] Jun, [facility] [id number] [place] [phone] Jun, Renal insufficiency N28.9 an d 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 [facility] [address] [facility] [id number] [address] [place] [phone] 05 Jun, 2016 Medicare welcome exam Z00.00 ; Encounter for immunization Z23 ; Arthritis M19.90 ; Medicare annual wellness visit, initial Z00.00 ; Medicare annual wellness visit, subsequent Z00.00 and 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 [facility] [address] [facility] [id number] [address] [place] [phone] May, Renal insufficiency N28.9 an d 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 [facility] [address] [facility] [id number] [address] [place] [phone] 19 May, 2016 Renal insufficiency N28.9 [facility] [address] [facility] [id number] [address] [place] [phone] 16 May, 2016 Renal insufficiency N28.9 [facility] [address] [facility] [id number] [address] [place] [phone] 14 May, 2016 [facility] [address] [facility] [id number] [address] [place] [phone] 16 Apr, 2016 [facility] [address] [facility] [id number] [address] [place] [phone] 16 Apr, 2016 [facility] [address] [facility] [id number] [address] [place] [phone] 14 Apr, 2016 Mass of throat R22.1 [facility] [address] [facility] [id number] [address] [place] [phone] Apr, [facility] [address] [facility] [id number] [address] [place] [phone] Apr, Mass of throat R22.1 [facility] [address] [facility] [id number] [address] [place] [id number] 04 Apr, 2016 Mass of throat R22.1 [facility] [address] [facility] [id number] [address] [place] [phone] Mar, [facility] [address] [facility] [id number] [address] [place] [phone] Mar, [facility] [address] [facility] [id number] [address] [place] [phone] Mar, [facility] [address] [facility] [id number] [address] [place] [phone] Mar, Parathyroid abnormality E21. 5 and Encounter for immunization Z23 [facility] [address] [facility] [id number] [address] [place] [phone] 17 Mar, 2016 [facility] [address] [facility] [id number] [address] [place] [phone] Mar, [facility] [address] [id number] [address] [place] [phone] 21 Feb, 2016 Renal insufficiency N28.9 an d Hyperparathyroidism E21.3 [facility] [address] [id number] [address] [place] [id number] 19 Feb, 2016 [facility] [address] [id number] [address] [place] [phone] 15 Feb, 2016 Renal insufficiency N28.9 an d Hyperparathyroidism E21.3 [facility] [address] [id number] [address] [place] [phone] 14 Feb, 2016 [facility] [address] [id number] [address] [place] [phone] 12 Feb, 2016 [facility] [address] [facility] [id number] [address] [place] [phone] 09 Feb, 2016 [facility] [address] [id number] [address] [place] [phone] Jan, [facility] [address] [id number] [address] [place] [phone] Jan, Arthritis M19.90 ; Lumbago w ith sciatica, right side M54.41 and Other chronic pain G89.29 [facility] [address] [facility] [id number] [address] [place] [phone] Jan, [facility] [address] [id number] [address] [place] [phone] Dec, Arthritis M19.90 ; Lumbago w ith sciatica, right side M54.41 and Other chronic pain G89.29 [facility] [address] [facility] [id number] [address] [place] [phone] Nov, Deficiency of other specifie d B group vitamins E53.8 ; Primary insomnia F51.01 ; Mood disorder F39 and Lumbago with sciatica, right side M54.41 [facility] [address] [id number] [address] [place] [phone] Nov, Hyperparathyroidism E21.3 [facility] [address] [place] [id number] [address] [place] [phone] Nov, Unspecified kidney failure N 19 and Hyperparathyroidism E21.3 [facility] [address] [place] [id number] [address] [place] [phone] October, Hyperparathyroidism E21.3 [facility] [address] [address] October, [facility] [address] [id number] October, Hyperparathyroidism E21.3 [facility] [address] [address] October, Hyperparathyroidism E21.3 [facility] [address] [address] Sep, Hyperparathyroidism E21.3 ; Hypercholesterolemia E78.0 and Arthritis M19.90 [facility] [address] [address] Aug, [facility] [address] [address] Aug, Deficiency of other specifie d B group vitamins E53.8 [facility] [address] [address] Aug, [facility] [address] [address] Jul, Urinary frequency R35.0 [facility] [address] [address] Jul, Urinary frequency R35.0 [facility] [address] [place] [id number] [address] [place] [id number] Jul, [facility] [address] [id number] Jul, [facility] [address] [id number] [address] [place] [id number] Jun, Pain in left knee M25.562 [facility] [address] [id number] [address] [place] [id number] Jun, [facility] [address] [id number] [address] [place] [id number] May, Swelling of left knee joint M25.462 [facility] [address] [id number] [address] [place] [id number] May, [facility] [address] [id number] [address] [place] [id number] May, [facility] [address] [facility] [id number] [address] [place] [phone] May, [facility] [address] [facility] [id number] [address] [place] [phone] Apr, Renal insufficiency N28.9 an d Chronic kidney disease, stage 4 (severe) N18.4 [facility] [address] [id number] [address] [place] [id number] Apr, Unspecified kidney failure N 19 [facility] [address] [facility] [id number] [address] [place] [phone] Apr, Unspecified kidney failure N 19 [facility] [address] [facility] [id number] [address] [place] [id number] Apr, [facility] [address] [facility] [id number] [address] [place] [phone] Apr, Hyperparathyroidism, unspeci fied 252.00 [facility] [address] [facility] [id number] [address] [place] [phone] Apr, [facility] [address] [facility] [id number] [address] [place] [phone] Mar, [facility] [address] [id number] [address] [place] [phone] Mar, [facility] [address] [id number] [address] [place] [phone] Mar, Hyperparathyroidism, unspeci fied 252.00 [facility] [address] [id number] [address] [place] [phone] Feb, [facility] [address] [id number] [address] [place] [phone] Feb, Otalgia 388.70 [facility] [address] [id number] [address] [place] [phone] Feb, [facility] [address] [id number] [address] [place] [phone] Feb, [facility] [address] [facility] [id number] [address] [place] [phone] Jan, [facility] [address] [id number] [address] [place] [phone] Jan, Hyperparathyroidism, unspeci fied 252.00 [facility] [address] [id number] [address] [place] [phone] Jan, [facility] [address] [facility] [id number] [address] [place] [phone] Jan, Other B-complex deficiencies 266.2 and Hyperparathyroidism, unspecified 252.00 [facility] [address] [id number] [address] [place] [phone] Jan, [facility] [address] [id number] [address] [place] [phone] Jan, [facility] [address] [facility] [id number] [address] [place] [phone] Jan, [facility] [address] [facility] [id number] [address] [place] [phone] Dec, [facility] [address] [facility] [id number] [address] [place] [phone] Dec, [facility] [address] [id number] [address] [place] [address], [place] [address] Dec, [facility] [address] [id number] [address] [place] [id number] Nov, Routine check-up V70.0 and P re-op exam V72.84 [facility] [address] [id number] [address] [place] [phone] Nov, [facility] [address] [id number] [address] [place] [address], [place] [address] Nov, [facility] [address] [id number] [address] [place] [address], [place] [address] October, [facility] [address] [id number] [address] [place] [phone] October, Other B-complex deficiencies 266.2 [facility] [address] [id number] [address] [place] [phone] October, [facility] [address] [id number] [address] [place] [address], [place] [address] Sep, [facility] [address] [id number] [address] [place] [phone] Sep, [facility] [address] [id number] [address] [place] [phone] Aug, [facility] [address] [id number] [address] [place] [phone] Aug, [facility] [address] [id number] [address] [place] [address], [place] [address] Aug, [facility] [address] [id number] [address] [place] [address], [place] [address] 17 Aug, 2014 [facility] [address] [id number] [address] [place] [phone] 11 Aug, 2014 [facility] [address] [id number] [address] [place] [phone] Aug, [facility] [address] [id number] [address] [place] [address], [place] [address] Jul, 2014 [facility] [address] [id number] [address] [place] [address], [place] [address] Jul, 2014 [facility] [address] [id number] [address] [place] [address], [place] [address] Jul, 2014 [facility] [address] [id number] [address] [place] [address], [place] [address] Jul, 2014 [facility] [address] [id number] [address] [place] [address], [place] [address] Jul, 2014 [facility] [address] [id number] [address] [place] [address], [place] [address] Jul, 2014 [facility] [address] [id number] [address] [place] [address], [place] [address] Jul, 2014 [facility] [address] [id number] [address] [place] [address], [place] [address] Jul, 2014 [facility] [address] [id number] [address] [place] [address], [place] [address] Jul, 2014 [facility] [address] [id number] [address] [place] [address], [place] [address] Jul, 2014 [facility] [address] [id number] [address] [place] [address], [place] [address] Jul, 2014 [facility] [address] [id number] [address] [place] [address], [place] [address] Jul, 2014 [facility] [address] [id number] [address] [place] [address], [place] [address] Jul, 2014 [facility] [address] [id number] [address] [place] [address], [place] [address] Jul, 2014 [facility] [address] [id number] [address] [place] [address], [place] [address] Jun, [facility] [address] [id number] [address] [place] [address], [place] [address] Jun, [facility] [address] [id number] [address] [place] [address], [place] [address] Jun, [facility] [address] [id number] [address] [place] [address], [place] [address] Jun, [facility] [address] [id number] [address] [place] [address], [place] [address] Jun, [facility] [address] [id number] [address] [place] [address], [place] [address] Jun, [facility] [address] [id number] [address] [place] [address], [place] [address] Jun, [facility] [address] [id number] [address] [place] [address], [place] [address] Jun, [facility] [address] [id number] [address] [place] [address], [place] [address] Jun, [facility] [address] [id number] [address] [place] [address], [place] [address] Jun, [facility] [address] [id number] [address] [place] [address], [place] [address] Jun, [facility] [address] [id number] [address] [place] [address], [place] [address] Jun, [facility] [address] [id number] [address] [place] [address], [place] [address] Jun, [facility] [address] [id number] [address] [place] [address], [place] [address] Jun, [facility] [address] [id number] [address] [place] [address], [place] [address] May, [facility] [address] [id number] [address] [place] [address], [place] [address] May, [facility] [address] [id number] [address] [place] [address], [place] [address] May, [facility] [address] [id number] [address] [place] [address], [place] [address] May, [facility] [address] [id number] [address] [place] [address], [place] [address] Apr, [facility] [address] [id number] [address] [place] [address], [place] [address] Apr, [facility] [address] [id number] [address] [place] [address], [place] [address] Apr, [facility] [address] [id number] [address] [place] [address], [place] [address] Apr, [facility] [address] [id number] [address] [place] [address], [place] [address] Apr, [facility] [address] [id number] [address] [place] [address], [place] [address] Apr, [facility] [address] [id number] [address] [place] [address], [place] [address] Mar, [facility] [address] [id number] [address] [place] [address], [place] [address] 24 Mar, 2014 [facility] [address] [id number] [address] [place] [address], [place] [address] Mar, [facility] [address] [id number] [address] [place] [address], [place] [address] Mar, [facility] [address] [id number] [address] [place] [address], [place] [address] 15 Mar, 2014 [facility] [address] [id number] [address] [place] [address], [place] [address] 15 Mar, 2014 [facility] [address] [id number] [address] [place] [address], [place] [address] Mar, [facility] [address] [id number] [address] [place] [address], [place] [address] Mar, [facility] [address] [id number] [address] [place] [address], [place] [address] 07 Mar, 2013 [facility] [address] [id number] [address] [place] [address], [place] [address] Mar, 2013 [facility] [address] [id number] [address] [place] [address], [place] [address] Mar, 2013 [facility] [address] [id number] [address] [place] [address], [place] [address] Mar, 2013 [facility] [address] [id number] [address] [place] [address], [place] [address] Mar, 2013 [facility] [address] [id number] [address] [place] [address], [place] [address] 26 Feb, 2013 [facility] [address] [id number] [address] [place] [address], [place] [address] 26 Feb, 2013 [facility] [address] [id number] [address] [place] [address], [place] [address] 23 Feb, 2013 [facility] [address] [id number] [address] [place] [address], [place] [address] 23 Feb, 2013 [facility] [address] [id number] [address] [place] [address], [place] [address] 19 Feb, 2013 [facility] [address] [id number] [address] [place] [address], [place] [address] 19 Feb, 2013 [facility] [address] [id number] [address] [place] [address], [place] [address] 13 Feb, 2013 [facility] [address] [id number] [address] [place] [address], [place] [address] 13 Feb, 2013 [facility] [address] [id number] [address] [place] [address], [place] [address] 12 Feb, 2013 [facility] [address] [id number] [address] [place] [address], [place] [address] 12 Feb, 2013 [facility] [address] [id number] [address] [place] [address], [place] [address] Jan, [facility] [address] [id number] [facility] [place] [address] Jan, [facility] [address] [id number] [address] [place] [address], [place] [address] Dec, [facility] [address] [id number] [address] [place] [address], [place] [address] Dec, [facility] [address] [id number] [address] [place] [address], [place] [address] Dec, [facility] [address] [id number] [address] [place] [address], [place] [address] Dec, [facility] [address] [id number] [address] [place] [address], [place] [address] Dec, [facility] [address] [id number] [address] [place] [address], [place] [address] Dec, [facility] [address] [id number] [address] [place] [address], [place] [address] Nov, [facility] [address] [id number] [address] [place] [address], [place] [address] Nov, [facility] [address] [id number] [address] [place] [address], [place] [address] Nov, [facility] [address] [id number] [address] [place] [address], [place] [address] Nov, [facility] [address] [id number] [address] [place] [address], [place] [address] October, [facility] [address] [id number] [address] [place] [address], [place] [address] October, [facility] [address] [id number] [address] [place] [address], [place] [address] October, [facility] [address] [id number] [address] [place] [address], [place] [address] October, [facility] [address] [id number] [facility] [place] [address] October, [facility] [address] [id number] [address] [place] [address], [place] [address] October, [facility] [address] [id number] [address] [place] [address], [place] [address] October, [facility] [address] [id number] [address] [place] [address], [place] [address] October, [facility] [address] [id number] [address] [place] [address], [place] [address] October, [facility] [address] [id number] [address] [place] [address], [place] [address] October, [facility] [address] [id number] [address] [place] [address], [place] [address] October, [facility] [address] [id number] [address] [place] [address], [place] [address] October, [facility] [address] [id number] [address] [place] [address], [place] [address] October, [facility] [address] [id number] [address] [place] [address], [place] [address] October, [facility] [address] [id number] [address] [place] [address], [place] [address] October, [facility] [address] [id number] [address] [place] [address], [place] [address] October, [facility] [address] [id number] [address] [place] [address], [place] [address] Sep, [facility] [address] [id number] [address] [place] [address], [place] [address] Sep, [facility] [address] [id number] [address] [place] [address], [place] [address] Sep, [facility] [address] [id number] [address] [place] [address], [place] [address] Sep, [facility] [address] [id number] [address] [place] [address], [place] [address] Sep, [facility] [address] [id number] [address] [place] [address], [place] [address] Sep, [facility] [address] [id number] [address] [place] [address], [place] [address] Aug, [facility] [address] [id number] [address] [place] [address], [place] [address] Aug, [facility] [address] [id number] [address] [place] [address], [place] [address] Aug, [facility] [address] [id number] [address] [place] [address], [place] [address] Aug, [facility] [address] [id number] [address] [place] [address], [place] [address] Aug, [facility] [address] [id number] [address] [place] [address], [place] [address] Aug, [facility] [address] [id number] [address] [place] [address], [place] [address] Jul, [facility] [address] [id number] [address] [place] [address], [place] [address] Jul, [facility] [address] [id number] [address] [place] [address], [place] [address] Jul, [facility] [address] [id number] [address] [place] [address], [place] [address] Jul, [facility] [address] [id number] [address] [place] [address], [place] [address] Jun, [facility] [address] [id number] [address] [place] [address], [place] [address] Jun, [facility] [address] [id number] [address] [place] [address], [place] [address] May, [facility] [address] [id number] [address] [place] [address], [place] [address] 11 May, 2013 [facility] [address] [id number] [address] [place] [address], [place] [address] 10 May, 2013 [facility] [address] [id number] [address] [place] [address], [place] [address] 09 May, 2013 [facility] [address] [id number] [address] [place] [address], [place] [address] May, [facility] [address] [id number] [address] [place] [address], [place] [address] Apr, [facility] [address] [id number] [address] [place] [address], [place] [address] Apr, [facility] [address] [id number] [address] [place] [address], [place] [address] Apr, [facility] [address] [id number] [address] [place] [address], [place] [address] Apr, [facility] [address] [id number] [address] [place] [address], [place] [address] Apr, [facility] [address] [id number] [address] [place] [address], [place] [address] 04 Apr, 2013 [facility] [address] [id number] [address] [place] [address], [place] [address] 15 Mar, 2013 [facility] [address] [id number] [address] [place] [address], [place] [address] 15 Mar, 2013 [facility] [address] [id number] [address] [place] [id number] 14 Mar, 2013 [facility] [address] [id number] [address] [place] [address], [place] [address] 14 Mar, 2013 [facility] [address] [id number] [address] [place] [address], [place] [address] 11 Mar, 2013 [facility] [address] [id number] [address] [place] [address] 11 Mar, 2013 [facility] [address] [id number] [address] [place] [address], [place] [address] Feb, [facility] [address] [id number] [address] [place] [address], [place] [address] Feb, [facility] [address] [id number] [address] [place] [address], [place] [address] Feb, [facility] [address] [id number] [address] [place] [address], [place] [address] Jan, [facility] [address] [id number] [address] [place] [address], [place] [address] Jan, [facility] [address] [id number] [address] [place] [address], [place] [address] Jan, [facility] [address] [id number] [address] [place] [address], [place] [address] Jan, [facility] [address] [id number] [address] [place] [address], [place] [address] Jan, [facility] [address] [id number] [address] [place] [address], [place] [address] Jan, [facility] [address] [id number] [address] [place] [address], [place] [address] Dec, [facility] [address] [id number] [address] [place] [address], [place] [address] Dec, [facility] [address] [id number] [address] [place] [address], [place] [address] Dec, [facility] [address] [id number] [address] [place] [address], [place] [address] Dec, [facility] [address] [id number] [address] [place] [address], [place] [address] Dec, [facility] [address] [id number] [address] [place] [address], [place] [address] Dec, [facility] [address] [id number] [address] [place] [address], [place] [address] 26 Nov, 2012 [facility] [address] [id number] [address] [place] [address], [place] [address] 19 Nov, 2012 [facility] [address] [id number] [address] [place] [address], [place] [address] 18 Nov, 2012 [facility] [address] [id number] [address] [place] [address], [place] [address] Nov, [facility] [address] [id number] [address] [place] [address], [place] [address] Nov, [facility] [address] [id number] [address] [place] [address], [place] [address] Nov, [facility] [address] [id number] [address] [place] [address], [place] [address] October, [facility] [address] [id number] [address] [place] [address], [place] [address] October, [facility] [address] [id number] [address] [place] [address], [place] [address] October, [facility] [address] [id number] [address] [place] [address], [place] [address] October, [facility] [address] [id number] [address] [place] [address], [place] [address] October, [facility] [address] [id number] [address] [place] [address], [place] [address] 30 Sep, 2012 [facility] [address] [id number] [address] [place] [address], [place] [address] 23 Sep, 2012 [facility] [address] [id number] [address] [place] [address], [place] [address] Sep, [facility] [address] [id number] [address] [place] [address], [place] [address] 18 Sep, 2012 [facility] [address] [id number] [address] [place] [address], [place] [address] Sep, [facility] [address] [id number] [address] [place] [address], [place] [address] 26 Aug, 2012 [facility] [address] [id number] [address] [place] [address], [place] [address] 07 Aug, 2012 [facility] [address] [id number] [address] [place] [address], [place] [address] 04 Aug, 2012 [facility] [address] [id number] [address] [place] [address], [place] [address] 21 Jul, 2012 [facility] [address] [id number] [address] [place] [address], [place] [address] 20 Jul, 2012 [facility] [address] [id number] [address] [place] [address], [place] [address] 11 Jul, 2012 [facility] [address] [id number] [address] [place] [address], [place] [address] 08 Jul, 2012 [facility] [address] [id number] [address] [place] [address], [place] [address] 06 Jul, 2012 [facility] [address] [id number] [address] [place] [address], [place] [address] 05 Jul, 2012 [facility] [facility] [address] [id number] [address] [place] [address], [place] [address] 15 Jun, 2012 [facility] [address] [id number] [address] [place] [address], [place] [address] 16 Apr, 2012 [facility] [address] [id number] [address] [place] [address], [place] [address] 16 Apr, 2012 [facility] [address] [id number] [address] [place] [address], [place] [address] 12 Apr, 2012 [facility] [address] [id number] [address] [place] [address], [place] [address] Apr, [facility] [address] [id number] [address] [place] [address], [place] [address] 19 Mar, 2012 [facility] [address] [id number] [address] [place] [id number] Mar, [facility] [address] [id number] [address] [place] [address], [place] [address] Mar, [facility] [address] [id number] [address] [place] [address], [place] [address] Mar, [facility] [address] [id number] [address] [place] [address], [place] [address] Mar, [facility] [address] [id number] [address] [place] [address], [place] [address] Feb, [facility] [address] [id number] [address] [place] [address], [place] [address] Jan, [facility] [address] [id number] [address] [place] [address], [place] [address] Jan, [facility] [address] [id number] [address] [place] [address], [place] [address] Jan, [facility] [address] [id number] [address] [place] [address], [place] [address] Dec, [facility] [address] [id number] [address] [place] [address], [place] [address] Nov, [facility] [address] [id number] [address] [place] [address], [place] [address] Nov, [facility] [address] [id number] [address] [place] [address], [place] [address] Nov, [facility] [address] [id number] [address] [place] [phone] Nov, [facility] [address] [id number] [address] [place] [address], [place] [address] Nov, [facility] [address] [id number] [address] [place] [address], [place] [address] October, [facility] [address] [id number] [address] [place] [address], [place] [address] October, [facility] [address] [id number] [address] [place] [id number] October, [facility] [address] [facility] [id number] [address] [place] [id number] October, [facility] [address] [facility] [id number] [address] [place] [phone] October, IMMUNIZATIONS No Known Immunizations SOCIAL HISTORY [...]
--- OUTSIDE RECORDS SUMMARY | 2020-01-25 07:47 | XMS REPORT ---
Author Author Velma CORDERO Organization [facility] Address [address] [place] [address] Care Team Providers Care Honing Machine Try Out Setter Name Role Phone STEPHAN CORDERO Unavailable PROBLEMS Type Condition ICD9-CM Code RKA83-HC Code Onset Dates Condition S tatus SNOMED Code Problem Primary insomnia F51.01 Active 397 2004 Problem Hypercholesteremia E78.0 Active 1 1412315 Problem Corns L84 Active 525079616 Problem Arthritis M19.90 Active 5586218 Problem Hyperparathyroidism E21.3 Active 29426526 Problem 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 Active 39220492 Problem 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 Active 55909880 Problem BPV (benign positional vertigo), bilateral H81.13 Active 375142640 Problem Unspecified kidney failure N19 Act chip 26301212 Problem Myalgia M79.1 Active 13442466 Problem 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 Active 368903676 Problem Mood disorder F39 Active 938122 05 Problem Chronic kidney disease, stage 4 (severe) N18.4 Active 602343605 Problem Primary osteoarthritis of left knee M17.12 Active [id number] Problem Irritable bowel syndrome with both constipation and diarrh ea K58.2 Active 27828843 Problem Body mass index (BMI) of 40.0-44.9 in adult Z68.41 Active 259216467 ALLERGIES No Information ENCOUNTERS Encounter Location Date Diagnosis [facility] [address] [facility] [id number] [address] [place] [address] Dec, Arthritis M19.90 [facility] [address] [facility] [id number] [address] [place] [phone] Nov, Inflammatory spondylopathy o f sacral region M46.98 [facility] [address] [facility] [id number] [address] [place] [phone] Nov, [facility] [address] [facility] [id number] [address] [place] [phone] Nov, Labyrinthitis of left ear H8 3.02 [facility] [address] [facility] [id number] [address] [place] [phone] 03 Nov, 2018 Arthritis M19.90 [facility] [address] [facility] [id number] [address] [place] [address] 15 Sep, 2018 Arthritis M19.90 [facility] [address] [facility] [id number] [address] [place] [phone] Sep, Renal insufficiency N28.9 an d Unspecified kidney failure N19 [facility] [address] [facility] [id number] [address] [place] [phone] Sep, Renal insufficiency N28.9 an d Unspecified kidney failure N19 [facility] [address] [facility] [id number] [address] [place] [address] Sep, Arthritis M19.90 [facility] [address] [facility] [id number] [address] [place] [address] Aug, Exercise counseling Z71.82 [facility] [address] [facility] [id number] [address] [place] [phone] Aug, [facility] [address] [facility] [id number] [address] [place] [address] Jul, Labyrinthitis of left ear H8 3.02 [facility] [address] [facility] [id number] [address] [place] [address] Jul, Labyrinthitis of left ear H8 3.02 [facility] [address] [facility] [id number] [address] [place] [address] Jul, Exercise counseling Z71.82 [facility] [address] [facility] [id number] [address] [place] [phone] Jul, [facility] [address] [facility] [id number] [address] [place] [phone] 14 Jul, 2018 Arthritis M19.90 [place] [address] [facility] [id number] [address] [place] [phone] 13 Jul, 2018 Encounter for Medicare annua l wellness exam Z00.00 ; Chronic kidney disease, stage 4 (severe) N18.4 ; Body mass index (BMI) of 40.0-44.9 in adult Z68.41 ; Hyperparathyroidism E21.3 and BMI 40.0-44.9, adult Z68.41 [facility] [place] [address] [facility] [id number] [address] [place] [address] 13 Jul, 2018 Encounter for Medicare annua l wellness exam Z00.00 ; Chronic kidney disease, stage 4 (severe) N18.4 ; Hyperparathyroidism E21.3 ; Body mass index (BMI) of 40.0-44.9 in adult Z68.41 and Encounter for immunization Z23 [facility] [address] [place] [id number] [address] [place] [phone] 11 Jul, 2018 Tail bone pain M53.3 [place] [address] [place] [id number] [address] [place] [phone] 29 Jun, 2018 Exercise counseling Z71.82 [place] [address] [place] [id number] [place] [address] Jun, Labyrinthitis of left ear H8 3.02 [place] [address] [place] [id number] [address] [place] [phone] Jun, Tail bone pain M53.3 ; Irrit able bowel syndrome with both constipation and diarrhea K58.2 and Dysfunction of left eustachian tube H69.82 [place] [address] [facility] [id number] [address] [place] [address] Jun, Exercise counseling Z71.82 [place] [address] [place] [id number] [address] [place] [address] Jun, Arthritis M19.90 [place] [address] [place] [id number] [address] [place] [address] Jun, Irritable bowel syndrome wit h both constipation and diarrhea K58.2 ; Tail bone pain M53.3 and Dysfunction of left eustachian tube H69.82 [facility] [address] [id number] [address] [place] [address] Jun, Exercise counseling Z71.82 [facility] [address] [id number] [address] [place] [address] Jun, Exercise counseling Z71.82 [facility] [address] [id number] [address] [place] [phone] Jun, Labyrinthitis of left ear H8 3.02 [place] [address] [id number] [address] [place] [address] May, Exercise counseling Z71.82 [place] [address] [id number] [address] [place] [address] May, Arthritis M19.90 [facility] [address] [id number] [address] [place] [address] May, Exercise counseling Z71.82 [facility] [address] [id number] [address] [place] [address] May, Exercise counseling Z71.82 [facility] [address] [id number] [address] [place] [address] May, Labyrinthitis of left ear H8 3.02 [facility] [address] [id number] [address] [place] [phone] May, Exercise counseling Z71.82 [facility] [address] [id number] [address] [place] [address] Apr, Arthritis M19.90 [facility] [address] [id number] [address] [place] [address] Apr, Exercise counseling Z71.82 [facility] [address] [id number] [address] [place] [address] Apr, Exercise counseling Z71.82 [place] [address] [address] Apr, Primary osteoarthritis of le ft knee M17.12 [place] [address] [address] Apr, Labyrinthitis of left ear H8 3.02 [place] [address] [address] Mar, Arthritis M19.90 [place] [address] [address] Mar, [place] [address] [address] Mar, Chronic kidney disease, stag e 4 (severe) N18.4 [place] [address] [address] Mar, Chronic kidney disease, stag e 4 (severe) N18.4 [place] [address] [address] Mar, Labyrinthitis of left ear H8 3.02 [place] [address] [phone] 05 Mar, 2018 Chronic kidney disease, stag e 4 (severe) N18.4 ; Knee pain, left anterior M25.562 ; 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 and Encounter for immunization Z23 [place] [address] [place] [id number] [address] [place] [address] Mar, Arthritis M19.90 [place] [address] [address] Feb, Labyrinthitis of left ear H8 3.02 [place] [address] [address] 06 Feb, 2018 Arthritis M19.90 [place] [address] [place] [id number] [address] [place] [address] Jan, Labyrinthitis of left ear H8 3.02 [facility] [address] [facility] [id number] [address] [place] [address] Jan, Arthritis M19.90 [facility] [address] [facility] [id number] [address] [place] [address] Dec, Labyrinthitis of left ear H8 3.02 [facility] [address] [facility] [id number] [address] [place] [address] Nov, Arthritis M19.90 [place] [address] [place] [id number] [address] [place] [address] Nov, Labyrinthitis of left ear H8 3.02 [place] [address] [place] [id number] [address] [place] [phone] Nov, BMI 40.0-44.9, adult Z68.41 ; Chronic kidney disease, stage 4 (severe) N18.4 and Acute right-sided thoracic back pain M54.6 [place] [address] [place] [id number] [address] [place] [phone] October, Labyrinthitis of left ear H8 3.02 and Arthritis M19.90 [place] [address] [place] [id number] [address] [place] [address] Sep, BPV (benign positional verti go), bilateral H81.13 ; Dysfunction of left eustachian tube H69.82 and BMI 40.0-44.9, adult Z68.41 [place] [address] [facility] [id number] [address] [place] [phone] Sep, Labyrinthitis of left ear H8 3.02 and Arthritis M19.90 [place] [address] [facility] [id number] [address] [place] [address] Sep, [place] [address] [place] [id number] [address] [place] [phone] Sep, [facility] [address] [id number] [address] [place] [address] Sep, Chronic kidney disease, stag e 4 (severe) N18.4 [facility] [address] [id number] [address] [place] [address] Sep, Chronic kidney disease, stag e 4 (severe) N18.4 [facility] [address] [id number] [address] [place] [address] Aug, Labyrinthitis of left ear H8 3.02 and Arthritis M19.90 [facility] [address] [id number] [address] [place] [phone] Aug, [facility] [address] [id number] [address] [place] [address] Jul, [facility] [address] [facility] [id number] [address] [place] [address] Jul, Arthritis M19.90 and Labyrin thitis of left ear H83.02 [facility] [address] [id number] [address] [place] [address] Jul, [facility] [address] [id number] [address] [place] [phone] Jun, [facility] [address] [id number] [address] [place] [address] Jun, Arthritis M19.90 and Labyrin thitis of left ear H83.02 [facility] [address] [facility] [id number] [address] [place] [phone] Jun, Pre-op evaluation Z01.818 ; BMI 40.0-44.9, adult Z68.41 and Encounter for immunization Z23 [facility] [address] [facility] [id number] [address] [place] [address] May, Arthritis M19.90 and Labyrin thitis of left ear H83.02 [facility] [address] [place] [id number] [address] [place] [address] Apr, Labyrinthitis of left ear H8 3.02 [place] [address] [place] [id number] [address] [place] [address] Apr, Arthritis M19.90 and Labyrin thitis of left ear H83.02 [place] [address] [place] [id number] [address] [place] [address] Mar, Arthritis M19.90 and Labyrin thitis of left ear H83.02 [place] [address] [place] [id number] [address] [place] [address] Mar, Chronic kidney disease, stag e 4 (severe) N18.4 [place] [address] [place] [id number] [address] [place] [address] Feb, Arthritis M19.90 and Labyrin thitis of left ear H83.02 [place] [address] [place] [id number] [place] [address] Jan, Labyrinthitis of left ear H8 3.02 and 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 [place] [address] [place] [id number] [address] [place] [address] Dec, Arthritis M19.90 [place] [address] [place] [id number] [address] [place] [address] Dec, BPV (benign positional verti go), bilateral H81.13 [place] [address] [place] [id number] [address] [place] [address] Dec, [place] [address] [place] [id number] [address] [place] [phone] Dec, [place] [address] [place] [id number] [address] [place] [phone] Dec, [place] [address] [place] [id number] [address] [place] [address] Nov, Arthritis M19.90 and Deficie ncy of other specified B group vitamins E53.8 [facility] [address] [id number] [address] [place] [address] Nov, Arthritis M19.90 [facility] [address] [id number] [address] [place] [address] Nov, Hyperparathyroidism E21.3 [facility] [address] [facility] [id number] [address] [place] [address] October, [facility] [address] [id number] [address] [place] [phone] October, Hyperparathyroidism E21.3 [facility] [address] [facility] [id number] [address] [place] [address] October, [facility] [address] [facility] [id number] [address] [place] [phone] October, Renal insufficiency N28.9 an d Hyperparathyroidism E21.3 [facility] [address] [facility] [id number] [address] [place] [phone] October, [facility] [address] [facility] [id number] [address] [place] [phone] October, Renal insufficiency N28.9 an d Hyperparathyroidism E21.3 [facility] [address] [facility] [id number] [address] [place] [address] October, Arthritis M19.90 [facility] [address] [facility] [id number] [address] [place] [address] Sep, [facility] [address] [facility] [id number] [address] [place] [phone] Sep, Lumbar neuritis M54.16 ; Tho racic abscess J86.9 and 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 [facility] [address] [id number] [address] [place] [address] Sep, [facility] [address] [facility] [id number] [address] [place] [address] Aug, Arthritis M19.90 [facility] [address] [facility] [id number] [address] [place] [address] Aug, Hyperparathyroidism E21.3 [facility] [address] [facility] [id number] [address] [place] [address] Aug, Hyperparathyroidism E21.3 [facility] [address] [facility] [id number] [address] [place] [address] Aug, Arthritis M19.90 [facility] [address] [facility] [id number] [address] [place] [phone] Jul, Mass of throat R22.1 [facility] [address] [place] [id number] [address] [place] [address] Jul, [facility] [address] [address] Jul, Arthritis M19.90 [facility] [address] [place] [id number] [address] [place] [address] Jun, Arthritis M19.90 [facility] [address] [place] [id number] [address] [place] [address] Jun, [facility] [id number] [place] [address] Jun, Renal insufficiency N28.9 an d 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 [facility] [address] [facility] [id number] [address] [place] [address] 05 Jun, 2016 Medicare welcome exam Z00.00 ; Encounter for immunization Z23 ; Arthritis M19.90 ; Medicare annual wellness visit, initial Z00.00 ; Medicare annual wellness visit, subsequent Z00.00 and 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 [facility] [address] [facility] [id number] [address] [place] [phone] May, Renal insufficiency N28.9 an d 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 [facility] [address] [facility] [id number] [address] [place] [phone] 19 May, 2016 Renal insufficiency N28.9 [facility] [address] [facility] [id number] [address] [place] [address] 16 May, 2016 Renal insufficiency N28.9 [facility] [address] [facility] [id number] [address] [place] [phone] 14 May, 2016 [facility] [address] [facility] [id number] [address] [place] [phone] 16 Apr, 2016 [facility] [address] [facility] [id number] [address] [place] [phone] 16 Apr, 2016 [facility] [address] [facility] [id number] [address] [place] [phone] 14 Apr, 2016 Mass of throat R22.1 [facility] [address] [facility] [id number] [address] [place] [phone] 10 Apr, 2016 [facility] [address] [facility] [id number] [address] [place] [phone] 10 Apr, 2016 Mass of throat R22.1 [facility] [address] [facility] [id number] [address] [place] [phone] 04 Apr, 2016 Mass of throat R22.1 [facility] [address] [facility] [id number] [address] [place] [phone] 31 Mar, 2016 [facility] [address] [facility] [id number] [address] [place] [phone] Mar, [facility] [address] [facility] [id number] [address] [place] [phone] Mar, [facility] [address] [facility] [id number] [address] [place] [address] 24 Mar, 2016 Parathyroid abnormality E21. 5 and Encounter for immunization Z23 [facility] [address] [facility] [id number] [address] [place] [phone] 17 Mar, 2016 [facility] [address] [facility] [id number] [address] [place] [phone] Mar, [facility] [address] [id number] [address] [place] [phone] 21 Feb, 2016 Renal insufficiency N28.9 an d Hyperparathyroidism E21.3 [facility] [address] [id number] [address] [place] [phone] 19 Feb, 2016 [facility] [address] [id number] [address] [place] [address] 15 Feb, 2016 Renal insufficiency N28.9 an d Hyperparathyroidism E21.3 [facility] [address] [id number] [address] [place] [phone] 14 Feb, 2016 [facility] [address] [id number] [address] [place] [phone] 12 Feb, 2016 [facility] [address] [facility] [id number] [address] [place] [phone] Feb, [facility] [address] [facility] [id number] [address] [place] [phone] Jan, [facility] [address] [facility] [id number] [address] [place] [phone] Jan, Arthritis M19.90 ; Lumbago w ith sciatica, right side M54.41 and Other chronic pain G89.29 [facility] [address] [facility] [id number] [address] [place] [address] Jan, [facility] [address] [facility] [id number] [address] [place] [address] Dec, Arthritis M19.90 ; Lumbago w ith sciatica, right side M54.41 and Other chronic pain G89.29 [facility] [address] [facility] [id number] [address] [place] [phone] Nov, Deficiency of other specifie d B group vitamins E53.8 ; Primary insomnia F51.01 ; Mood disorder F39 and Lumbago with sciatica, right side M54.41 [facility] [address] [facility] [id number] [address] [place] [phone] Nov, Hyperparathyroidism E21.3 [facility] [address] [facility] [id number] [address] [place] [address] Nov, Unspecified kidney failure N 19 and Hyperparathyroidism E21.3 [facility] [address] [facility] [id number] [address] [place] [address] October, Hyperparathyroidism E21.3 [facility] [address] [address] October, [facility] [address] [id number] October, Hyperparathyroidism E21.3 [facility] [address] [id number] October, Hyperparathyroidism E21.3 [facility] [address] [id number] Sep, Hyperparathyroidism E21.3 ; Hypercholesterolemia E78.0 and Arthritis M19.90 [facility] [address] [id number] Aug, [facility] [address] [id number] Aug, Deficiency of other specifie d B group vitamins E53.8 [facility] [address] [place] [id number] [address] [place] [id number] Aug, [facility] [address] [id number] Jul, Urinary frequency R35.0 [facility] [address] [id number] Jul, Urinary frequency R35.0 [facility] [address] [place] [id number] [address] [place] [id number] Jul, [facility] [address] [id number] Jul, [facility] [address] [id number] [address] [place] [id number] Jun, Pain in left knee M25.562 [facility] [address] [id number] [address] [place] [id number] Jun, [facility] [address] [id number] [address] [place] [id number] May, Swelling of left knee joint M25.462 [facility] [address] [id number] [address] [place] [phone] May, [facility] [address] [id number] [address] [place] [id number] May, [facility] [address] [facility] [id number] [address] [place] [id number] May, [facility] [address] [facility] [id number] [address] [place] [id number] Apr, Renal insufficiency N28.9 an d Chronic kidney disease, stage 4 (severe) N18.4 [facility] [address] [facility] [id number] [address] [place] [id number] Apr, Unspecified kidney failure N 19 [facility] [address] [facility] [id number] [address] [place] [id number] Apr, Unspecified kidney failure N 19 [facility] [address] [facility] [id number] [address] [place] [id number] Apr, [facility] [address] [facility] [id number] [address] [place] [id number] Apr, Hyperparathyroidism, unspeci fied 252.00 [facility] [address] [facility] [id number] [address] [place] [address] Apr, [facility] [address] [facility] [id number] [address] [place] [phone] Mar, [facility] [address] [facility] [id number] [address] [place] [address] Mar, [facility] [address] [id number] [address] [place] [address] Mar, Hyperparathyroidism, unspeci fied 252.00 [facility] [address] [id number] [address] [place] [address] Feb, [facility] [address] [facility] [id number] [address] [place] [address] Feb, Otalgia 388.70 [facility] [address] [facility] [id number] [address] [place] [address] Feb, [facility] [address] [facility] [id number] [address] [place] [phone] Feb, [facility] [address] [facility] [id number] [address] [place] [address] Jan, [facility] [address] [facility] [id number] [address] [place] [address] Jan, Hyperparathyroidism, unspeci fied 252.00 [facility] [address] [id number] [address] [place] [address] Jan, [facility] [address] [facility] [id number] [address] [place] [address] Jan, Other B-complex deficiencies 266.2 and Hyperparathyroidism, unspecified 252.00 [facility] [address] [facility] [id number] [address] [place] [phone] Jan, [facility] [address] [facility] [id number] [address] [place] [address] Jan, [facility] [address] [facility] [id number] [address] [place] [address] Jan, [facility] [address] [facility] [id number] [address] [place] [id number] Dec, [facility] [address] [facility] [id number] [address] [place] [phone] Dec, [facility] [address] [id number] [address] [place] [address] Dec, [facility] [address] [id number] [address] [place] [address] Nov, Routine check-up V70.0 and P re-op exam V72.84 [facility] [address] [id number] [address] [place] [phone] Nov, [facility] [address] [id number] [address] [place] [phone] Nov, [facility] [address] [id number] [address] [place] [phone] October, [facility] [address] [id number] [address] [place] [address] October, Other B-complex deficiencies 266.2 [facility] [address] [id number] [address] [place] [address] October, [facility] [address] [id number] [address] [place] [address] Sep, [facility] [address] [id number] [address] [place] [address] Sep, [facility] [address] [id number] [address] [place] [address] Aug, [facility] [address] [id number] [address] [place] [phone] Aug, [facility] [address] [id number] [address] [place] [address] Aug, [facility] [address] [id number] [address] [place] [id number] 17 Aug, 2014 [facility] [address] [id number] [address] [place] [address] Aug, [facility] [address] [id number] [address] [place] [address] Aug, [facility] [address] [id number] [address] [place] [address], [place] [address] Jul, 2014 [facility] [address] [id number] [address] [place] [address], [place] [address] Jul, 2014 [facility] [address] [id number] [address] [place] [address], [place] [address] Jul, 2014 [facility] [address] [id number] [address] [place] [address], [place] [address] Jul, 2014 [facility] [address] [id number] [address] [place] [address], [place] [address] Jul, 2014 [facility] [address] [id number] [address] [place] [address], [place] [address] Jul, 2014 [facility] [address] [id number] [address] [place] [address], [place] [address] Jul, 2014 [facility] [address] [id number] [address] [place] [address], [place] [address] Jul, 2014 [facility] [address] [id number] [address] [place] [address], [place] [address] Jul, 2014 [facility] [address] [id number] [address] [place] [address], [place] [address] Jul, 2014 [facility] [address] [id number] [address] [place] [address], [place] [address] Jul, 2014 [facility] [address] [id number] [address] [place] [address], [place] [address] Jul, 2014 [facility] [address] [id number] [address] [place] [address], [place] [address] Jul, 2014 [facility] [address] [id number] [address] [place] [address], [place] [address] Jul, 2014 [facility] [address] [id number] [address] [place] [address], [place] [address] Jun, [facility] [address] [id number] [address] [place] [address], [place] [address] Jun, [facility] [address] [id number] [address] [place] [address], [place] [address] Jun, [facility] [address] [id number] [address] [place] [address], [place] [address] Jun, [facility] [address] [id number] [address] [place] [address], [place] [address] Jun, [facility] [address] [id number] [address] [place] [address], [place] [address] Jun, [facility] [address] [id number] [address] [place] [address], [place] [address] Jun, [facility] [address] [id number] [address] [place] [address], [place] [address] Jun, [facility] [address] [id number] [address] [place] [address], [place] [address] Jun, [facility] [address] [id number] [address] [place] [address], [place] [address] Jun, [facility] [address] [id number] [address] [place] [address], [place] [address] Jun, [facility] [address] [id number] [address] [place] [address], [place] [address] Jun, [facility] [address] [id number] [address] [place] [address] Jun, [facility] [address] [id number] [address] [place] [address], [place] [address] Jun, [facility] [address] [id number] [address] [place] [address], [place] [address] May, [facility] [address] [id number] [address] [place] [address], [place] [address] May, [facility] [address] [id number] [address] [place] [address] May, [facility] [address] [id number] [address] [place] [address], [place] [address] May, [facility] [address] [id number] [address] [place] [address], [place] [address] Apr, [facility] [address] [id number] [address] [place] [address], [place] [address] Apr, [facility] [address] [id number] [address] [place] [address], [place] [address] Apr, [facility] [address] [id number] [address] [place] [address], [place] [address] Apr, [facility] [address] [id number] [address] [place] [address], [place] [address] Apr, [facility] [address] [id number] [address] [place] [address], [place] [address] Apr, [facility] [address] [id number] [address] [place] [address], [place] [address] Mar, [facility] [address] [id number] [address] [place] [address], [place] [address] Mar, [facility] [address] [id number] [address] [place] [address], [place] [address] Mar, [facility] [address] [id number] [address] [place] [address], [place] [address] Mar, [facility] [address] [id number] [address] [place] [address] 15 Mar, 2014 [facility] [address] [id number] [address] [place] [address], [place] [address] 15 Mar, 2014 [facility] [address] [id number] [address] [place] [address] Mar, [facility] [address] [id number] [address] [place] [address] Mar, [facility] [address] [id number] [address] [place] [address], [place] [address] 07 Mar, 2013 [facility] [address] [id number] [address] [place] [address], [place] [address] 07 Mar, 2013 [facility] [address] [id number] [address] [place] [address], [place] [address] 07 Mar, 2013 [facility] [address] [id number] [address] [place] [address], [place] [address] 07 Mar, 2013 [facility] [address] [id number] [address] [place] [address], [place] [address] 06 Mar, 2013 [facility] [address] [id number] [address] [place] [address], [place] [address] 26 Feb, 2013 [facility] [address] [id number] [address] [place] [address], [place] [address] 26 Feb, 2013 [facility] [address] [id number] [address] [place] [address], [place] [address] 23 Feb, 2013 [facility] [address] [id number] [address] [place] [address], [place] [address] 23 Feb, 2013 [facility] [address] [id number] [address] [place] [address], [place] [address] 19 Feb, 2013 [facility] [address] [id number] [address] [place] [address], [place] [address] 19 Feb, 2013 [facility] [address] [id number] [address] [place] [address], [place] [address] 13 Feb, 2013 [facility] [address] [id number] [address] [place] [address], [place] [address] 13 Feb, 2013 [facility] [address] [id number] [address] [place] [address], [place] [address] 12 Feb, 2013 [facility] [address] [id number] [address] [place] [address], [place] [address] 12 Feb, 2013 [facility] [address] [id number] [address] [place] [address], [place] [address] Jan, [facility] [address] [id number] [facility] [address] Jan, [facility] [address] [id number] [facility] [place] [address] Dec, [facility] [address] [id number] [facility] [place] [address] Dec, [facility] [address] [id number] [address] [place] [address], [place] [address] Dec, [facility] [address] [id number] [address] [place] [address], [place] [address] Dec, [facility] [address] [id number] [address] [place] [address], [place] [address] Dec, [facility] [address] [id number] [address] [place] [address], [place] [address] Dec, [facility] [address] [id number] [address] [place] [address], [place] [address] Nov, [facility] [address] [id number] [address] [place] [address], [place] [address] Nov, [facility] [address] [id number] [address] [place] [address], [place] [address] Nov, [facility] [address] [id number] [address] [place] [address], [place] [address] Nov, [facility] [address] [id number] [address] [place] [address], [place] [address] October, [facility] [address] [id number] [address] [place] [address], [place] [address] October, [facility] [address] [id number] [address] [place] [address], [place] [address] October, [facility] [address] [id number] [address] [place] [address], [place] [address] October, [facility] [address] [id number] [address] [place] [address], [place] [address] October, [facility] [address] [id number] [address] [place] [address], [place] [address] October, [facility] [address] [id number] [address] [place] [address], [place] [address] October, [facility] [address] [id number] [address] [place] [address], [place] [address] October, [facility] [address] [id number] [address] [place] [address], [place] [address] October, [facility] [address] [id number] [address] [place] [address], [place] [address] October, [facility] [address] [id number] [address] [place] [address], [place] [address] October, [facility] [address] [id number] [address] [place] [address], [place] [address] October, [facility] [address] [id number] [address] [place] [address], [place] [address] October, [facility] [address] [id number] [address] [place] [address], [place] [address] October, [facility] [address] [id number] [address] [place] [address], [place] [address] October, [facility] [address] [id number] [address] [place] [address], [place] [address] October, [facility] [address] [id number] [address] [place] [address], [place] [address] Sep, [facility] [address] [id number] [address] [place] [address], [place] [address] Sep, [facility] [address] [id number] [address] [place] [address], [place] [address] Sep, [facility] [address] [id number] [address] [place] [address], [place] [address] Sep, [facility] [address] [id number] [address] [place] [address], [place] [address] Sep, [facility] [address] [id number] [address] [place] [address], [place] [address] Sep, [facility] [address] [id number] [address] [place] [address], [place] [address] Aug, [facility] [address] [id number] [address] [place] [address], [place] [address] Aug, [facility] [address] [id number] [address] [place] [address], [place] [address] Aug, [facility] [address] [id number] [address] [place] [address], [place] [address] Aug, [facility] [address] [id number] [address] [place] [address], [place] [address] Aug, [facility] [address] [id number] [address] [place] [address], [place] [address] Aug, [facility] [address] [id number] [address] [place] [address], [place] [address] Jul, [facility] [address] [id number] [address] [place] [address], [place] [address] Jul, [facility] [address] [id number] [address] [place] [address], [place] [address] Jul, [facility] [address] [id number] [address] [place] [address], [place] [address] Jul, [facility] [address] [id number] [address] [place] [address], [place] [address] Jun, [facility] [address] [id number] [address] [place] [address], [place] [address] Jun, [facility] [address] [id number] [address] [place] [address], [place] [address] May, [facility] [address] [id number] [address] [place] [address] 11 May, 2013 [facility] [address] [id number] [address] [place] [address], [place] [address] 10 May, 2013 [facility] [address] [id number] [address] [place] [address] May, [facility] [address] [id number] [address] [place] [address] May, [facility] [address] [id number] [address] [place] [address] Apr, [facility] [address] [id number] [address] [place] [address] Apr, [facility] [address] [id number] [address] [place] [address] Apr, [facility] [address] [id number] [address] [place] [address] Apr, [facility] [address] [id number] [address] [place] [address] Apr, [facility] [address] [id number] [address] [place] [address] 04 Apr, 2013 [facility] [address] [id number] [address] [place] [address] 15 Mar, 2013 [facility] [address] [id number] [address] [place] [address] 15 Mar, 2013 [facility] [address] [id number] [address] [place] [address] 14 Mar, 2013 [facility] [address] [id number] [address] [place] [address] 14 Mar, 2013 [facility] [address] [id number] [address] [place] [address] 11 Mar, 2013 [facility] [address] [id number] [address] [place] [id number] 11 Mar, 2013 [facility] [address] [id number] [facility] [address] Feb, [facility] [address] [id number] [address] [place] [address], [place] [address] Feb, [facility] [address] [id number] [address] [place] [address], [place] [address] Feb, [facility] [address] [id number] [address] [place] [address], [place] [address] Jan, [facility] [address] [id number] [address] [place] [address], [place] [address] Jan, [facility] [address] [id number] [address] [place] [address], [place] [address] Jan, [facility] [address] [id number] [address] [place] [address], [place] [address] Jan, [facility] [address] [id number] [address] [place] [address], [place] [address] Jan, [facility] [address] [id number] [address] [place] [address], [place] [address] Jan, [facility] [address] [id number] [address] [place] [address], [place] [address] Dec, [facility] [address] [id number] [address] [place] [address], [place] [address] Dec, [facility] [address] [id number] [address] [place] [address], [place] [address] Dec, [facility] [address] [id number] [address] [place] [address], [place] [address] Dec, [facility] [address] [id number] [address] [place] [address], [place] [address] Dec, [facility] [address] [id number] [address] [place] [address], [place] [address] Dec, [facility] [address] [id number] [address] [place] [address], [place] [address] 26 Nov, 2012 [facility] [address] [id number] [address] [place] [address], [place] [address] 19 Nov, 2012 [facility] [address] [id number] [address] [place] [address], [place] [address] 18 Nov, 2012 [facility] [address] [id number] [address] [place] [address], [place] [address] 13 Nov, 2012 [facility] [address] [id number] [address] [place] [address], [place] [address] Nov, [facility] [address] [id number] [address] [place] [address], [place] [address] Nov, [facility] [address] [id number] [address] [place] [address], [place] [address] October, [facility] [address] [id number] [address] [place] [address], [place] [address] October, [facility] [address] [id number] [address] [place] [address], [place] [address] October, [facility] [address] [id number] [address] [place] [address], [place] [address] October, [facility] [address] [id number] [address] [place] [address], [place] [address] October, [facility] [address] [id number] [address] [place] [address], [place] [address] 30 Sep, 2012 [facility] [address] [id number] [address] [place] [address], [place] [address] Sep, [facility] [address] [id number] [address] [place] [address], [place] [address] Sep, [facility] [address] [id number] [address] [place] [address], [place] [address] 18 Sep, 2012 [facility] [address] [id number] [address] [place] [address], [place] [address] Sep, [facility] [address] [id number] [address] [place] [address], [place] [address] 26 Aug, 2012 [facility] [address] [id number] [address] [place] [address], [place] [address] 07 Aug, 2012 [facility] [address] [id number] [address] [place] [address], [place] [address] 04 Aug, 2012 [facility] [address] [id number] [address] [place] [address], [place] [address] 21 Jul, 2012 [facility] [address] [id number] [address] [place] [address], [place] [address] 20 Jul, 2012 [facility] [address] [id number] [address] [place] [address], [place] [address] 11 Jul, 2012 [facility] [address] [id number] [address] [place] [address], [place] [address] 08 Jul, 2012 [facility] [address] [id number] [address] [place] [address], [place] [address] 06 Jul, 2012 [facility] [address] [id number] [address] [place] [address], [place] [address] 05 Jul, 2012 [facility] [address] [id number] [address] [place] [address], [place] [address] 15 Jun, 2012 [facility] [address] [id number] [address] [place] [address], [place] [address] 16 Apr, 2012 [facility] [address] [id number] [address] [place] [address], [place] [address] 16 Apr, 2012 [facility] [address] [id number] [address] [place] [address], [place] [address] Apr, [facility] [address] [id number] [address] [place] [address], [place] [address] Apr, [facility] [address] [id number] [address] [place] [address], [place] [address] Mar, [facility] [address] [id number] [address] [place] [address], [place] [address] Mar, [facility] [address] [id number] [address] [place] [place] [address], [place] [id number] Mar, [facility] [address] [id number] [address] [place] [address], [place] [id number] Mar, [facility] [address] [id number] [address] [place] [address], [place] [id number] Mar, [facility] [address] [id number] [address] [place] [address], [place] [id number] Feb, [facility] [address] [id number] [address] [place] [address], [place] [address] Jan, [facility] [address] [id number] [address] [place] [address], [place] [id number] Jan, [facility] [address] [id number] [address] [place] [address], [place] [address] Jan, [facility] [address] [id number] [address] [place] [address], [place] [id number] Dec, [facility] [address] [id number] [address] [place] [address], [place] [address] Nov, [facility] [address] [id number] [address] [place] [address], [place] [address] Nov, [facility] [address] [id number] [address] [place] [address], [place] [address] Nov, [facility] [address] [id number] [address] [place] [id number] Nov, [facility] [address] [id number] [address] [place] [address], [place] [address] Nov, [facility] [address] [id number] [address] [place] [address], [place] [address] October, [facility] [address] [id number] [address] [place] [address], [place] [address] October, [facility] [address] [id number] [address] [place] [id number] October, [facility] [address] [facility] [id number] [address] [place] [id number] October, [facility] [address] [facility] [id number] [address] [place] [id number] October, IMMUNIZATIONS No Known Immunizations SOCIAL HISTORY [...]
--- OUTSIDE RECORDS SUMMARY | 2020-01-25 07:47 | XMS REPORT ---
Author Author Velma CORDERO Organization [facility] Address [address] [place] [address] Care Team Providers Care Cardiology Physician Assistant Name Role Phone STEPHAN CORDERO Unavailable PROBLEMS Type Condition ICD9-CM Code GUB87-RY Code Onset Dates Condition S tatus SNOMED Code Problem Primary insomnia F51.01 Active 397 2004 Problem Hypercholesteremia E78.0 Active 1 2293285 Problem Corns L84 Active 738368730 Problem Arthritis M19.90 Active 7704613 Problem Hyperparathyroidism E21.3 Active 60613144 Problem 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 Active 37875975 Problem 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 Active 35339177 Problem BPV (benign positional vertigo), bilateral H81.13 Active 090512542 Problem Unspecified kidney failure N19 Act chip 47051419 Problem Myalgia M79.1 Active 54964882 Problem 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 Active 917205013 Problem Mood disorder F39 Active 146826 05 Problem Chronic kidney disease, stage 4 (severe) N18.4 Active 279583039 Problem Primary osteoarthritis of left knee M17.12 Active [id number] Problem Irritable bowel syndrome with both constipation and diarrh ea K58.2 Active 26417717 Problem Body mass index (BMI) of 40.0-44.9 in adult Z68.41 Active 580617915 ALLERGIES No Information ENCOUNTERS Encounter Location Date Diagnosis [facility] [address] [facility] [id number] [address] [place] [id number] Dec, Arthritis M19.90 [facility] [address] [facility] [id number] [address] [place] [id number] Nov, Inflammatory spondylopathy o f sacral region M46.98 [facility] [address] [facility] [id number] [address] [place] [address] Nov, [facility] [address] [facility] [id number] [address] [place] [address] Nov, Labyrinthitis of left ear H8 3.02 [facility] [address] [facility] [id number] [address] [place] [id number] 03 Nov, 2018 Arthritis M19.90 [facility] [address] [facility] [id number] [address] [place] [id number] 15 Sep, 2018 Arthritis M19.90 [facility] [address] [facility] [id number] [address] [place] [id number] Sep, Renal insufficiency N28.9 an d Unspecified kidney failure N19 [facility] [address] [facility] [id number] [address] [place] [id number] Sep, Renal insufficiency N28.9 an d Unspecified kidney failure N19 [facility] [address] [facility] [id number] [address] [place] [address] Sep, Arthritis M19.90 [facility] [address] [facility] [id number] [address] [place] [id number] Aug, Exercise counseling Z71.82 [facility] [address] [facility] [id number] [address] [place] [phone] Aug, [facility] [address] [facility] [id number] [address] [place] [address] Jul, Labyrinthitis of left ear H8 3.02 [facility] [address] [facility] [id number] [address] [place] [id number] Jul, Labyrinthitis of left ear H8 3.02 [facility] [address] [facility] [id number] [address] [place] [address] Jul, Exercise counseling Z71.82 [facility] [address] [facility] [id number] [address] [place] [address] Jul, [facility] [address] [facility] [id number] [address] [place] [address] 14 Jul, 2018 Arthritis M19.90 [place] [address] [facility] [id number] [address] [place] [address] 13 Jul, 2018 Encounter for Medicare annua l wellness exam Z00.00 ; Chronic kidney disease, stage 4 (severe) N18.4 ; Body mass index (BMI) of 40.0-44.9 in adult Z68.41 ; Hyperparathyroidism E21.3 and BMI 40.0-44.9, adult Z68.41 [place] [address] [facility] [id number] [address] [place] [id number] 13 Jul, 2018 Encounter for Medicare annua l wellness exam Z00.00 ; Chronic kidney disease, stage 4 (severe) N18.4 ; Hyperparathyroidism E21.3 ; Body mass index (BMI) of 40.0-44.9 in adult Z68.41 and Encounter for immunization Z23 [place] [address] [place] [id number] [address] [place] [id number] 11 Jul, 2018 Tail bone pain M53.3 [place] [address] [place] [id number] [address] [place] [id number] 29 Jun, 2018 Exercise counseling Z71.82 [place] [address] [place] [id number] [place] [address] Jun, Labyrinthitis of left ear H8 3.02 [place] [address] [place] [id number] [address] [place] [id number] Jun, Tail bone pain M53.3 ; Irrit able bowel syndrome with both constipation and diarrhea K58.2 and Dysfunction of left eustachian tube H69.82 [place] [address] [facility] [id number] [address] [place] [address] Jun, Exercise counseling Z71.82 [place] [address] [place] [id number] [address] [place] [address] Jun, Arthritis M19.90 [place] [address] [place] [id number] [address] [place] [address] Jun, Irritable bowel syndrome wit h both constipation and diarrhea K58.2 ; Tail bone pain M53.3 and Dysfunction of left eustachian tube H69.82 [facility] [address] [id number] [address] [place] [address] Jun, Exercise counseling Z71.82 [facility] [address] [id number] [address] [place] [address] Jun, Exercise counseling Z71.82 [facility] [address] [id number] [address] [place] [address] Jun, Labyrinthitis of left ear H8 3.02 [place] [address] [id number] [address] [place] [address] May, Exercise counseling Z71.82 [place] [address] [id number] [address] [place] [address] May, Arthritis M19.90 [facility] [address] [id number] [address] [place] [address] May, Exercise counseling Z71.82 [facility] [address] [id number] [address] [place] [address] May, Exercise counseling Z71.82 [facility] [address] [id number] [address] [place] [address] May, Labyrinthitis of left ear H8 3.02 [facility] [address] [id number] [address] [place] [address] May, Exercise counseling Z71.82 [facility] [address] [id number] [address] [place] [address] Apr, Arthritis M19.90 [facility] [address] [id number] [address] [place] [address] Apr, Exercise counseling Z71.82 [facility] [address] [id number] [address] [place] [address] Apr, Exercise counseling Z71.82 [place] [address] [address] Apr, Primary osteoarthritis of le ft knee M17.12 [place] [address] [phone] Apr, Labyrinthitis of left ear H8 3.02 [place] [address] [address] Mar, Arthritis M19.90 [place] [address] [address] Mar, [place] [address] [address] Mar, Chronic kidney disease, stag e 4 (severe) N18.4 [place] [address] [address] Mar, Chronic kidney disease, stag e 4 (severe) N18.4 [place] [address] [address] Mar, Labyrinthitis of left ear H8 3.02 [place] [address] [address] 05 Mar, 2018 Chronic kidney disease, stag e 4 (severe) N18.4 ; Knee pain, left anterior M25.562 ; 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 and Encounter for immunization Z23 [place] [address] [place] [id number] [address] [place] [address] Mar, Arthritis M19.90 [place] [address] [address] Feb, Labyrinthitis of left ear H8 3.02 [place] [address] [address] 06 Feb, 2018 Arthritis M19.90 [place] [address] [place] [id number] [address] [place] [address] Jan, Labyrinthitis of left ear H8 3.02 [facility] [address] [facility] [id number] [address] [place] [address] Jan, Arthritis M19.90 [facility] [address] [facility] [id number] [address] [place] [address] Dec, Labyrinthitis of left ear H8 3.02 [facility] [address] [facility] [id number] [address] [place] [address] Nov, Arthritis M19.90 [place] [address] [place] [id number] [address] [place] [address] Nov, Labyrinthitis of left ear H8 3.02 [place] [address] [place] [id number] [address] [place] [address] Nov, BMI 40.0-44.9, adult Z68.41 ; Chronic kidney disease, stage 4 (severe) N18.4 and Acute right-sided thoracic back pain M54.6 [place] [address] [place] [id number] [address] [place] [id number] October, Labyrinthitis of left ear H8 3.02 and Arthritis M19.90 [place] [address] [place] [id number] [address] [place] [address] Sep, BPV (benign positional verti go), bilateral H81.13 ; Dysfunction of left eustachian tube H69.82 and BMI 40.0-44.9, adult Z68.41 [place] [address] [facility] [id number] [address] [place] [address] Sep, Labyrinthitis of left ear H8 3.02 and Arthritis M19.90 [place] [address] [facility] [id number] [address] [place] [id number] Sep, [place] [address] [place] [id number] [address] [place] [address] Sep, [facility] [address] [id number] [address] [place] [address] Sep, Chronic kidney disease, stag e 4 (severe) N18.4 [facility] [address] [id number] [address] [place] [address] Sep, Chronic kidney disease, stag e 4 (severe) N18.4 [facility] [address] [id number] [address] [place] [address] Aug, Labyrinthitis of left ear H8 3.02 and Arthritis M19.90 [facility] [address] [id number] [address] [place] [address] Aug, [facility] [address] [id number] [address] [place] [address] Jul, [facility] [address] [facility] [id number] [address] [place] [address] Jul, Arthritis M19.90 and Labyrin thitis of left ear H83.02 [facility] [address] [id number] [address] [place] [address] Jul, [facility] [address] [id number] [address] [place] [address] Jun, [facility] [address] [id number] [address] [place] [address] Jun, Arthritis M19.90 and Labyrin thitis of left ear H83.02 [facility] [address] [facility] [id number] [address] [place] [address] Jun, Pre-op evaluation Z01.818 ; BMI 40.0-44.9, adult Z68.41 and Encounter for immunization Z23 [facility] [address] [facility] [id number] [address] [place] [address] May, Arthritis M19.90 and Labyrin thitis of left ear H83.02 [facility] [address] [place] [id number] [address] [place] [address] Apr, Labyrinthitis of left ear H8 3.02 [place] [address] [place] [id number] [address] [place] [address] Apr, Arthritis M19.90 and Labyrin thitis of left ear H83.02 [place] [address] [place] [id number] [address] [place] [address] Mar, Arthritis M19.90 and Labyrin thitis of left ear H83.02 [place] [address] [place] [id number] [address] [place] [address] Mar, Chronic kidney disease, stag e 4 (severe) N18.4 [place] [address] [place] [id number] [address] [place] [address] Feb, Arthritis M19.90 and Labyrin thitis of left ear H83.02 [place] [address] [place] [id number] [place] [address] Jan, Labyrinthitis of left ear H8 3.02 and 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 [place] [address] [place] [id number] [address] [place] [address] Dec, Arthritis M19.90 [place] [address] [place] [id number] [address] [place] [address] Dec, BPV (benign positional verti go), bilateral H81.13 [place] [address] [place] [id number] [address] [place] [id number] Dec, [place] [address] [place] [id number] [address] [place] [address] Dec, [place] [address] [place] [id number] [address] [place] [id number] Dec, [place] [address] [place] [id number] [address] [place] [address] Nov, Arthritis M19.90 and Deficie ncy of other specified B group vitamins E53.8 [facility] [address] [id number] [address] [place] [address] Nov, Arthritis M19.90 [facility] [address] [id number] [address] [place] [id number] Nov, Hyperparathyroidism E21.3 [facility] [address] [facility] [id number] [address] [place] [address] October, [facility] [address] [id number] [address] [place] [id number] October, Hyperparathyroidism E21.3 [facility] [address] [facility] [id number] [address] [place] [address] October, [facility] [address] [facility] [id number] [address] [place] [address] October, Renal insufficiency N28.9 an d Hyperparathyroidism E21.3 [facility] [address] [facility] [id number] [address] [place] [address] October, [facility] [address] [facility] [id number] [address] [place] [address] October, Renal insufficiency N28.9 an d Hyperparathyroidism E21.3 [facility] [address] [facility] [id number] [address] [place] [address] October, Arthritis M19.90 [facility] [address] [facility] [id number] [address] [place] [address] Sep, [facility] [address] [facility] [id number] [address] [place] [address] Sep, Lumbar neuritis M54.16 ; Tho racic abscess J86.9 and 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 [facility] [address] [id number] [address] [place] [address] Sep, [facility] [address] [facility] [id number] [address] [place] [address] Aug, Arthritis M19.90 [facility] [address] [facility] [id number] [address] [place] [address] Aug, Hyperparathyroidism E21.3 [facility] [address] [facility] [id number] [address] [place] [address] Aug, Hyperparathyroidism E21.3 [facility] [address] [facility] [id number] [address] [place] [address] Aug, Arthritis M19.90 [facility] [address] [facility] [id number] [address] [place] [address] Jul, Mass of throat R22.1 [facility] [address] [place] [id number] [address] [place] [address] Jul, [facility] [address] [address] Jul, Arthritis M19.90 [facility] [address] [place] [id number] [address] [place] [address] Jun, Arthritis M19.90 [facility] [address] [place] [id number] [address] [place] [address] Jun, [facility] [id number] [place] [address] Jun, Renal insufficiency N28.9 an d 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 [facility] [address] [facility] [id number] [address] [place] [address] 05 Jun, 2016 Medicare welcome exam Z00.00 ; Encounter for immunization Z23 ; Arthritis M19.90 ; Medicare annual wellness visit, initial Z00.00 ; Medicare annual wellness visit, subsequent Z00.00 and 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 [facility] [address] [facility] [id number] [address] [place] [address] May, Renal insufficiency N28.9 an d 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 [facility] [address] [facility] [id number] [address] [place] [id number] 19 May, 2016 Renal insufficiency N28.9 [facility] [address] [facility] [id number] [address] [place] [address] 16 May, 2016 Renal insufficiency N28.9 [facility] [address] [facility] [id number] [address] [place] [address] 14 May, 2016 [facility] [address] [facility] [id number] [address] [place] [address] 16 Apr, 2016 [facility] [address] [facility] [id number] [address] [place] [id number] 16 Apr, 2016 [facility] [address] [facility] [id number] [address] [place] [address] 14 Apr, 2016 Mass of throat R22.1 [facility] [address] [facility] [id number] [address] [place] [id number] 10 Apr, 2016 [facility] [address] [facility] [id number] [address] [place] [address] 10 Apr, 2016 Mass of throat R22.1 [facility] [address] [facility] [id number] [address] [place] [id number] 04 Apr, 2016 Mass of throat R22.1 [facility] [address] [facility] [id number] [address] [place] [address] 31 Mar, 2016 [facility] [address] [facility] [id number] [address] [place] [id number] Mar, [facility] [address] [facility] [id number] [address] [place] [address] Mar, [facility] [address] [facility] [id number] [address] [place] [id number] 24 Mar, 2016 Parathyroid abnormality E21. 5 and Encounter for immunization Z23 [facility] [address] [facility] [id number] [address] [place] [id number] 17 Mar, 2016 [facility] [address] [facility] [id number] [address] [place] [id number] Mar, [facility] [address] [id number] [address] [place] [id number] 21 Feb, 2016 Renal insufficiency N28.9 an d Hyperparathyroidism E21.3 [facility] [address] [id number] [address] [place] [id number] 19 Feb, 2016 [facility] [address] [id number] [address] [place] [id number] 15 Feb, 2016 Renal insufficiency N28.9 an d Hyperparathyroidism E21.3 [facility] [address] [id number] [address] [place] [address] 14 Feb, 2016 [facility] [address] [id number] [address] [place] [id number] 12 Feb, 2016 [facility] [address] [facility] [id number] [address] [place] [id number] Feb, [facility] [address] [facility] [id number] [address] [place] [phone] Jan, [facility] [address] [facility] [id number] [address] [place] [address] Jan, Arthritis M19.90 ; Lumbago w ith sciatica, right side M54.41 and Other chronic pain G89.29 [facility] [address] [facility] [id number] [address] [place] [id number] Jan, [facility] [address] [facility] [id number] [address] [place] [address] Dec, Arthritis M19.90 ; Lumbago w ith sciatica, right side M54.41 and Other chronic pain G89.29 [facility] [address] [facility] [id number] [address] [place] [address] Nov, Deficiency of other specifie d B group vitamins E53.8 ; Primary insomnia F51.01 ; Mood disorder F39 and Lumbago with sciatica, right side M54.41 [facility] [address] [facility] [id number] [address] [place] [id number] Nov, Hyperparathyroidism E21.3 [facility] [address] [facility] [id number] [address] [place] [address] Nov, Unspecified kidney failure N 19 and Hyperparathyroidism E21.3 [facility] [address] [facility] [id number] [address] [place] [address] October, Hyperparathyroidism E21.3 [facility] [address] [address] October, [facility] [address] [address] October, Hyperparathyroidism E21.3 [facility] [address] [address] October, Hyperparathyroidism E21.3 [facility] [address] [id number] Sep, Hyperparathyroidism E21.3 ; Hypercholesterolemia E78.0 and Arthritis M19.90 [facility] [address] [address] Aug, [facility] [address] [address] Aug, Deficiency of other specifie d B group vitamins E53.8 [facility] [address] [place] [id number] [address] [place] [id number] Aug, [facility] [address] [address] Jul, Urinary frequency R35.0 [facility] [address] [id number] Jul, Urinary frequency R35.0 [facility] [address] [place] [id number] [address] [place] [id number] Jul, [facility] [address] [address] Jul, [facility] [address] [id number] [address] [place] [id number] Jun, Pain in left knee M25.562 [facility] [address] [id number] [address] [place] [id number] Jun, [facility] [address] [id number] [address] [place] [id number] May, Swelling of left knee joint M25.462 [facility] [address] [id number] [address] [place] [id number] May, [facility] [address] [id number] [address] [place] [id number] May, [facility] [address] [facility] [id number] [address] [place] [id number] May, [facility] [address] [facility] [id number] [address] [place] [id number] Apr, Renal insufficiency N28.9 an d Chronic kidney disease, stage 4 (severe) N18.4 [facility] [address] [facility] [id number] [address] [place] [id number] Apr, Unspecified kidney failure N 19 [facility] [address] [facility] [id number] [address] [place] [id number] Apr, Unspecified kidney failure N 19 [facility] [address] [facility] [id number] [address] [place] [id number] Apr, [facility] [address] [facility] [id number] [address] [place] [id number] Apr, Hyperparathyroidism, unspeci fied 252.00 [facility] [address] [facility] [id number] [address] [place] [id number] Apr, [facility] [address] [facility] [id number] [address] [place] [id number] Mar, [facility] [address] [facility] [id number] [address] [place] [address] Mar, [facility] [address] [id number] [address] [place] [address] Mar, Hyperparathyroidism, unspeci fied 252.00 [facility] [address] [id number] [address] [place] [address] Feb, [facility] [address] [facility] [id number] [address] [place] [id number] Feb, Otalgia 388.70 [facility] [address] [facility] [id number] [address] [place] [id number] Feb, [facility] [address] [facility] [id number] [address] [place] [id number] Feb, [facility] [address] [facility] [id number] [address] [place] [id number] Jan, [facility] [address] [facility] [id number] [address] [place] [phone] Jan, Hyperparathyroidism, unspeci fied 252.00 [facility] [address] [id number] [address] [place] [address] Jan, [facility] [address] [facility] [id number] [address] [place] [id number] Jan, Other B-complex deficiencies 266.2 and Hyperparathyroidism, unspecified 252.00 [facility] [address] [facility] [id number] [address] [place] [address] Jan, [facility] [address] [facility] [id number] [address] [place] [phone] Jan, [facility] [address] [facility] [id number] [address] [place] [phone] Jan, [facility] [address] [facility] [id number] [address] [place] [id number] Dec, [facility] [address] [facility] [id number] [address] [place] [id number] Dec, [facility] [address] [id number] [address] [place] [id number] Dec, [facility] [address] [id number] [address] [place] [id number] Nov, Routine check-up V70.0 and P re-op exam V72.84 [facility] [address] [id number] [address] [place] [address] Nov, [facility] [address] [id number] [address] [place] [address] Nov, [facility] [address] [id number] [address] [place] [phone] October, [facility] [address] [id number] [address] [place] [id number] October, Other B-complex deficiencies 266.2 [facility] [address] [id number] [address] [place] [address] October, [facility] [address] [id number] [address] [place] [phone] Sep, [facility] [address] [id number] [address] [place] [address] Sep, [facility] [address] [id number] [address] [place] [phone] Aug, [facility] [address] [id number] [address] [place] [phone] Aug, [facility] [address] [id number] [address] [place] [id number] Aug, [facility] [address] [id number] [address] [place] [id number] 17 Aug, 2014 [facility] [address] [id number] [address] [place] [phone] Aug, [facility] [address] [id number] [address] [place] [phone] Aug, [facility] [address] [id number] [address] [place] [address], [place] [address] Jul, 2014 [facility] [address] [id number] [address] [place] [address], [place] [address] Jul, 2014 [facility] [address] [id number] [address] [place] [address], [place] [address] Jul, 2014 [facility] [address] [id number] [address] [place] [address], [place] [address] Jul, 2014 [facility] [address] [id number] [address] [place] [address], [place] [address] Jul, 2014 [facility] [address] [id number] [address] [place] [address], [place] [address] Jul, 2014 [facility] [address] [id number] [address] [place] [address], [place] [address] Jul, 2014 [facility] [address] [id number] [address] [place] [address], [place] [address] Jul, 2014 [facility] [address] [id number] [address] [place] [address], [place] [address] Jul, 2014 [facility] [address] [id number] [address] [place] [address], [place] [address] Jul, 2014 [facility] [address] [id number] [address] [place] [address], [place] [address] Jul, 2014 [facility] [address] [id number] [address] [place] [address], [place] [address] Jul, 2014 [facility] [address] [id number] [address] [place] [address], [place] [address] Jul, 2014 [facility] [address] [id number] [address] [place] [address], [place] [address] Jul, 2014 [facility] [address] [id number] [address] [place] [address], [place] [address] Jun, [facility] [address] [id number] [address] [place] [address], [place] [address] Jun, [facility] [address] [id number] [address] [place] [address], [place] [address] Jun, [facility] [address] [id number] [address] [place] [address], [place] [address] Jun, [facility] [address] [id number] [address] [place] [address], [place] [address] Jun, [facility] [address] [id number] [address] [place] [address], [place] [address] Jun, [facility] [address] [id number] [address] [place] [address], [place] [address] Jun, [facility] [address] [id number] [address] [place] [address], [place] [address] Jun, [facility] [address] [id number] [address] [place] [address], [place] [address] Jun, [facility] [address] [id number] [address] [place] [address], [place] [address] Jun, [facility] [address] [id number] [address] [place] [address], [place] [address] Jun, [facility] [address] [id number] [address] [place] [address], [place] [address] Jun, [facility] [address] [id number] [address] [place] [id number] Jun, [facility] [address] [id number] [address] [place] [address], [place] [address] Jun, [facility] [address] [id number] [address] [place] [address], [place] [address] May, [facility] [address] [id number] [address] [place] [address], [place] [address] May, [facility] [address] [id number] [address] [place] [address] May, [facility] [address] [id number] [address] [place] [address], [place] [address] May, [facility] [address] [id number] [address] [place] [address], [place] [address] Apr, [facility] [address] [id number] [address] [place] [address], [place] [address] Apr, [facility] [address] [id number] [address] [place] [address], [place] [address] Apr, [facility] [address] [id number] [address] [place] [address], [place] [address] Apr, [facility] [address] [id number] [address] [place] [address], [place] [address] Apr, [facility] [address] [id number] [address] [place] [address], [place] [address] Apr, [facility] [address] [id number] [address] [place] [address], [place] [address] Mar, [facility] [address] [id number] [address] [place] [address], [place] [address] Mar, [facility] [address] [id number] [address] [place] [address], [place] [address] Mar, [facility] [address] [id number] [address] [place] [address], [place] [address] Mar, [facility] [address] [id number] [address] [place] [address] 15 Mar, 2014 [facility] [address] [id number] [address] [place] [address], [place] [address] 15 Mar, 2014 [facility] [address] [id number] [address] [place] [address] Mar, [facility] [address] [id number] [address] [place] [address] Mar, [facility] [address] [id number] [address] [place] [address], [place] [address] 07 Mar, 2013 [facility] [address] [id number] [address] [place] [address], [place] [address] 07 Mar, 2013 [facility] [address] [id number] [address] [place] [address], [place] [address] 07 Mar, 2013 [facility] [address] [id number] [address] [place] [address], [place] [address] 07 Mar, 2013 [facility] [address] [id number] [address] [place] [address], [place] [address] 06 Mar, 2013 [facility] [address] [id number] [address] [place] [address], [place] [address] 26 Feb, 2013 [facility] [address] [id number] [address] [place] [address], [place] [address] 26 Feb, 2013 [facility] [address] [id number] [address] [place] [address], [place] [address] 23 Feb, 2013 [facility] [address] [id number] [address] [place] [address], [place] [address] 23 Feb, 2013 [facility] [address] [id number] [address] [place] [address], [place] [address] 19 Feb, 2013 [facility] [address] [id number] [address] [place] [address], [place] [address] 19 Feb, 2013 [facility] [address] [id number] [address] [place] [address], [place] [address] 13 Feb, 2013 [facility] [address] [id number] [address] [place] [address], [place] [address] 13 Feb, 2013 [facility] [address] [id number] [address] [place] [address], [place] [address] 12 Feb, 2013 [facility] [address] [id number] [address] [place] [address], [place] [address] 12 Feb, 2013 [facility] [address] [id number] [address] [place] [address], [place] [address] Jan, [facility] [address] [id number] [facility] [place] [address] Jan, [facility] [address] [id number] [facility] [place] [address] Dec, [facility] [address] [id number] [facility] [place] [address] Dec, [facility] [address] [id number] [address] [place] [address], [place] [address] Dec, [facility] [address] [id number] [address] [place] [address], [place] [address] Dec, [facility] [address] [id number] [address] [place] [address], [place] [address] Dec, [facility] [address] [id number] [address] [place] [address], [place] [address] Dec, [facility] [address] [id number] [address] [place] [address], [place] [address] Nov, [facility] [address] [id number] [address] [place] [address], [place] [address] Nov, [facility] [address] [id number] [address] [place] [address], [place] [address] Nov, [facility] [address] [id number] [address] [place] [address], [place] [address] Nov, [facility] [address] [id number] [address] [place] [address], [place] [address] October, [facility] [address] [id number] [address] [place] [address], [place] [address] October, [facility] [address] [id number] [address] [place] [address], [place] [address] October, [facility] [address] [id number] [address] [place] [address], [place] [address] October, [facility] [address] [id number] [address] [place] [address], [place] [address] October, [facility] [address] [id number] [address] [place] [address], [place] [address] October, [facility] [address] [id number] [address] [place] [address], [place] [address] October, [facility] [address] [id number] [address] [place] [address], [place] [address] October, [facility] [address] [id number] [address] [place] [address], [place] [address] October, [facility] [address] [id number] [address] [place] [address], [place] [address] October, [facility] [address] [id number] [address] [place] [address], [place] [address] October, [facility] [address] [id number] [address] [place] [address], [place] [address] October, [facility] [address] [id number] [address] [place] [address], [place] [address] October, [facility] [address] [id number] [address] [place] [address], [place] [address] October, [facility] [address] [id number] [address] [place] [address], [place] [address] October, [facility] [address] [id number] [address] [place] [address], [place] [address] October, [facility] [address] [id number] [address] [place] [address], [place] [address] Sep, [facility] [address] [id number] [address] [place] [address], [place] [address] Sep, [facility] [address] [id number] [address] [place] [address], [place] [address] Sep, [facility] [address] [id number] [address] [place] [address], [place] [address] Sep, [facility] [address] [id number] [address] [place] [address], [place] [address] Sep, [facility] [address] [id number] [address] [place] [address], [place] [address] Sep, [facility] [address] [id number] [address] [place] [address], [place] [address] Aug, [facility] [address] [id number] [address] [place] [address], [place] [address] Aug, [facility] [address] [id number] [address] [place] [address], [place] [address] Aug, [facility] [address] [id number] [address] [place] [address], [place] [address] Aug, [facility] [address] [id number] [address] [place] [address], [place] [address] Aug, [facility] [address] [id number] [address] [place] [address], [place] [address] Aug, [facility] [address] [id number] [address] [place] [address], [place] [address] Jul, [facility] [address] [id number] [address] [place] [address], [place] [address] Jul, [facility] [address] [id number] [address] [place] [address], [place] [address] Jul, [facility] [address] [id number] [address] [place] [address], [place] [address] Jul, [facility] [address] [id number] [address] [place] [address], [place] [address] Jun, [facility] [address] [id number] [address] [place] [address], [place] [address] Jun, [facility] [address] [id number] [address] [place] [address], [place] [address] May, [facility] [address] [id number] [address] [place] [address] 11 May, 2013 [facility] [address] [id number] [address] [place] [address], [place] [address] 10 May, 2013 [facility] [address] [id number] [address] [place] [address] May, [facility] [address] [id number] [address] [place] [address] May, [facility] [address] [id number] [address] [place] [address] Apr, [facility] [address] [id number] [address] [place] [address] Apr, [facility] [address] [id number] [address] [place] [address] Apr, [facility] [address] [id number] [address] [place] [address] Apr, [facility] [address] [id number] [address] [place] [address] Apr, [facility] [address] [id number] [address] [place] [id number] 04 Apr, 2013 [facility] [address] [id number] [address] [place] [address] 15 Mar, 2013 [facility] [address] [id number] [address] [place] [address] 15 Mar, 2013 [facility] [address] [id number] [address] [place] [address] 14 Mar, 2013 [facility] [address] [id number] [address] [place] [address] 14 Mar, 2013 [facility] [address] [id number] [address] [place] [address] 11 Mar, 2013 [facility] [address] [id number] [address] [place] [id number] 11 Mar, 2013 [facility] [address] [id number] [facility] [place] [address] Feb, [facility] [address] [id number] [address] [place] [address], [place] [address] Feb, [facility] [address] [id number] [address] [place] [address], [place] [address] Feb, [facility] [address] [id number] [address] [place] [address], [place] [address] Jan, [facility] [address] [id number] [address] [place] [address], [place] [address] Jan, [facility] [address] [id number] [address] [place] [address], [place] [address] Jan, [facility] [address] [id number] [address] [place] [address], [place] [address] Jan, [facility] [address] [id number] [address] [place] [address], [place] [address] Jan, [facility] [address] [id number] [address] [place] [address], [place] [address] Jan, [facility] [address] [id number] [address] [place] [address], [place] [address] Dec, [facility] [address] [id number] [address] [place] [address], [place] [address] Dec, [facility] [address] [id number] [address] [place] [address], [place] [address] Dec, [facility] [address] [id number] [address] [place] [address], [place] [address] Dec, [facility] [address] [id number] [address] [place] [address], [place] [address] Dec, [facility] [address] [id number] [address] [place] [address], [place] [address] Dec, [facility] [address] [id number] [address] [place] [address], [place] [address] 26 Nov, 2012 [facility] [address] [id number] [address] [place] [address], [place] [address] 19 Nov, 2012 [facility] [address] [id number] [address] [place] [address], [place] [address] 18 Nov, 2012 [facility] [address] [id number] [address] [place] [address], [place] [address] 13 Nov, 2012 [facility] [address] [id number] [address] [place] [address], [place] [address] Nov, [facility] [address] [id number] [address] [place] [address], [place] [address] Nov, [facility] [address] [id number] [address] [place] [address], [place] [address] October, [facility] [address] [id number] [address] [place] [address], [place] [address] October, [facility] [address] [id number] [address] [place] [address], [place] [address] October, [facility] [address] [id number] [address] [place] [address], [place] [address] October, [facility] [address] [id number] [address] [place] [address], [place] [address] October, [facility] [address] [id number] [address] [place] [address], [place] [address] 30 Sep, 2012 [facility] [address] [id number] [address] [place] [address], [place] [address] Sep, [facility] [address] [id number] [address] [place] [address], [place] [address] Sep, [facility] [address] [id number] [address] [place] [address], [place] [address] 18 Sep, 2012 [facility] [address] [id number] [address] [place] [address], [place] [address] Sep, [facility] [address] [id number] [address] [place] [address], [place] [address] 26 Aug, 2012 [facility] [address] [id number] [address] [place] [address], [place] [address] 07 Aug, 2012 [facility] [address] [id number] [address] [place] [address], [place] [address] 04 Aug, 2012 [facility] [address] [id number] [address] [place] [address], [place] [address] 21 Jul, 2012 [facility] [address] [id number] [address] [place] [address], [place] [address] 20 Jul, 2012 [facility] [address] [id number] [address] [place] [address], [place] [address] 11 Jul, 2012 [facility] [address] [id number] [address] [place] [address], [place] [address] 08 Jul, 2012 [facility] [address] [id number] [address] [place] [address], [place] [address] 06 Jul, 2012 [facility] [address] [id number] [address] [place] [address], [place] [address] 05 Jul, 2012 [facility] [address] [id number] [address] [place] [address], [place] [address] 15 Jun, 2012 [facility] [address] [id number] [address] [place] [address], [place] [address] 16 Apr, 2012 [facility] [address] [id number] [address] [place] [address], [place] [address] 16 Apr, 2012 [facility] [address] [id number] [address] [place] [address], [place] [address] Apr, [facility] [address] [id number] [address] [place] [address], [place] [address] Apr, [facility] [address] [address] [id number] [address] [place] [address], [place] [address] Mar, [facility] [address] [id number] [address] [place] [address], [place] [address] Mar, [facility] [address] [id number] [address] [place] [address], [place] [address] Mar, [facility] [address] [id number] [address] [place] [address], [place] [address] Mar, [facility] [address] [id number] [address] [place] [address], [place] [address] Mar, [facility] [address] [id number] [address] [place] [address], [place] [address] Feb, [facility] [address] [id number] [address] [place] [address], [place] [address] Jan, [facility] [address] [id number] [address] [place] [address], [place] [address] Jan, [facility] [address] [id number] [address] [place] [address], [place] [address] Jan, [facility] [address] [id number] [address] [place] [address], [place] [address] Dec, [facility] [address] [id number] [address] [place] [address], [place] [address] Nov, [facility] [address] [id number] [address] [place] [address], [place] [address] Nov, [facility] [address] [id number] [address] [place] [address], [place] [address] Nov, [facility] [address] [id number] [address] [place] [id number] Nov, [facility] [address] [id number] [address] [place] [address], [place] [address] Nov, [facility] [address] [id number] [address] [place] [address], [place] [address] October, [facility] [address] [id number] [address] [place] [address], [place] [address] October, [facility] [address] [id number] [address] [place] [id number] October, [facility] [address] [facility] [id number] [address] [place] [id number] October, [facility] [address] [facility] [id number] [address] [place] [id number] October, IMMUNIZATIONS No Known Immunizations SOCIAL HISTORY Never Assessed REASON FOR VISIT PLAN OF CARE VITAL SIGNS MEDICATIONS Unknown Medications RESULTS No Results PROCEDURES Procedure Date Ordered Result Body Site PSYTX PT&/FAMILY 30 MINUTES May 11, 2014 INSTRUCTIONS MEDICATIONS ADMINISTERED No Known Medications [...]
--- OUTSIDE RECORDS SUMMARY | 2020-01-25 07:48 | XMS REPORT ---
Author Author Velma ACOSTA Organization [facility] Address [address] [place] [address] Care Team Providers Care Associate Financial Representative Name Role Phone SRIKANTH ACOSTA Unavailable PROBLEMS Type Condition ICD9-CM Code TXN96-WH Code Onset Dates Condition S tatus SNOMED Code Problem Primary insomnia F51.01 Active 397 2004 Problem Hypercholesteremia E78.0 Active 1 6939505 Problem Corns L84 Active 904624880 Problem Arthritis M19.90 Active 9489415 Problem Hyperparathyroidism E21.3 Active 43154609 Problem 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 Active 11030978 Problem 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 Active 74056239 Problem BPV (benign positional vertigo), bilateral H81.13 Active 962800283 Problem Unspecified kidney failure N19 Act chip 15403654 Problem Myalgia M79.1 Active 09931756 Problem 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 Active 835919114 Problem Mood disorder F39 Active 865854 05 Problem Chronic kidney disease, stage 4 (severe) N18.4 Active 715604026 Problem Primary osteoarthritis of left knee M17.12 Active [id number] Problem Irritable bowel syndrome with both constipation and diarrh ea K58.2 Active 08692801 Problem Body mass index (BMI) of 40.0-44.9 in adult Z68.41 Active 207218931 ALLERGIES No Information ENCOUNTERS Encounter Location Date Diagnosis [facility] [address] [facility] [id number] [address] [place] [phone] Dec, Arthritis M19.90 [facility] [address] [facility] [id number] [address] [place] [id number] Nov, Inflammatory spondylopathy o f sacral region M46.98 [facility] [address] [facility] [id number] [address] [place] [id number] Nov, [facility] [address] [id number] [address] [place] [id number] Nov, Labyrinthitis of left ear H8 3.02 [facility] [address] [id number] [address] [place] [id number] Nov, Arthritis M19.90 [facility] [address] [id number] [address] [place] [id number] Sep, Arthritis M19.90 [facility] [address] [id number] [address] [place] [id number] Sep, Renal insufficiency N28.9 an d Unspecified kidney failure N19 [facility] [address] [id number] [address] [place] [id number] Sep, Renal insufficiency N28.9 an d Unspecified kidney failure N19 [facility] [address] [id number] [address] [place] [id number] Sep, Arthritis M19.90 [facility] [address] [id number] [address] [place] [id number] Aug, Exercise counseling Z71.82 [facility] [address] [facility] [id number] [address] [place] [id number] Aug, [facility] [address] [facility] [id number] [address] [place] [id number] Jul, Labyrinthitis of left ear H8 3.02 [facility] [address] [id number] [address] [place] [id number] Jul, Labyrinthitis of left ear H8 3.02 [facility] [address] [id number] [address] [place] [id number] Jul, Exercise counseling Z71.82 [facility] [address] [id number] [address] [place] [id number] Jul, [facility] [address] [facility] [id number] [address] [place] [id number] 14 Jul, 2018 Arthritis M19.90 [place] [address] [facility] [id number] [address] [place] [id number] 13 Jul, 2018 Encounter for Medicare annua l wellness exam Z00.00 ; Chronic kidney disease, stage 4 (severe) N18.4 ; Body mass index (BMI) of 40.0-44.9 in adult Z68.41 ; Hyperparathyroidism E21.3 and BMI 40.0-44.9, adult Z68.41 [place] [address] [facility] [id number] [address] [place] [id number] 13 Jul, 2018 Encounter for Medicare annua l wellness exam Z00.00 ; Chronic kidney disease, stage 4 (severe) N18.4 ; Hyperparathyroidism E21.3 ; Body mass index (BMI) of 40.0-44.9 in adult Z68.41 and Encounter for immunization Z23 [place] [address] [facility] [id number] [address] [place] [id number] 11 Jul, 2018 Tail bone pain M53.3 [place] [address] [facility] [id number] [address] [place] [phone] Jun, Exercise counseling Z71.82 [place] [address] [facility] [id number] [address] [place] [id number] Jun, Labyrinthitis of left ear H8 3.02 [place] [address] [facility] [id number] [address] [place] [id number] Jun, Tail bone pain M53.3 ; Irrit able bowel syndrome with both constipation and diarrhea K58.2 and Dysfunction of left eustachian tube H69.82 [place] [address] [facility] [id number] [address] [place] [id number] Jun, Exercise counseling Z71.82 [place] [address] [facility] [id number] [address] [place] [id number] Jun, Arthritis M19.90 [place] [address] [facility] [id number] [address] [place] [id number] Jun, Irritable bowel syndrome wit h both constipation and diarrhea K58.2 ; Tail bone pain M53.3 and Dysfunction of left eustachian tube H69.82 [facility] [address] [id number] [address] [place] [id number] Jun, Exercise counseling Z71.82 [facility] [address] [id number] [address] [place] [id number] Jun, Exercise counseling Z71.82 [facility] [address] [id number] [address] [place] [id number] Jun, Labyrinthitis of left ear H8 3.02 [place] [address] [id number] [address] [place] [address] May, Exercise counseling Z71.82 [place] [address] [id number] [address] [place] [id number] May, Arthritis M19.90 [place] [address] [id number] [address] [place] [id number] May, Exercise counseling Z71.82 [place] [address] [id number] [address] [place] [id number] May, Exercise counseling Z71.82 [place] [address] [id number] [address] [place] [id number] May, Labyrinthitis of left ear H8 3.02 [facility] [address] [id number] [address] [place] [address] May, Exercise counseling Z71.82 [place] [address] [id number] [address] [place] [id number] Apr, Arthritis M19.90 [facility] [address] [id number] [address] [place] [address] Apr, Exercise counseling Z71.82 [place] [address] [id number] [address] [place] [id number] Apr, Exercise counseling Z71.82 [place] [address] [place] [id number] [address] [place] [id number] Apr, Primary osteoarthritis of le ft knee M17.12 [place] [address] [address] Apr, Labyrinthitis of left ear H8 3.02 [place] [address] [id number] 30 Mar, 2018 Arthritis M19.90 [place] [address] [id number] Mar, [place] [address] [phone] Mar, Chronic kidney disease, stag e 4 (severe) N18.4 [place] [address] [address] Mar, Chronic kidney disease, stag e 4 (severe) N18.4 [place] [address] [id number] 09 Mar, 2018 Labyrinthitis of left ear H8 3.02 [place] [address] [id number] 05 Mar, 2018 Chronic kidney disease, stag e 4 (severe) N18.4 ; Knee pain, left anterior M25.562 ; 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 and Encounter for immunization Z23 [place] [id number] [place] [address] Mar, Arthritis M19.90 [place] [address] [address] Feb, Labyrinthitis of left ear H8 3.02 [place] [address] [id number] Feb, Arthritis M19.90 [place] [address] [facility] [id number] [address] [place] [address] Jan, Labyrinthitis of left ear H8 3.02 [facility] [address] [facility] [id number] [address] [place] [id number] Jan, Arthritis M19.90 [facility] [address] [facility] [id number] [address] [place] [id number] Dec, Labyrinthitis of left ear H8 3.02 [facility] [address] [facility] [id number] [address] [place] [id number] Nov, Arthritis M19.90 [place] [address] [facility] [id number] [address] [place] [id number] Nov, Labyrinthitis of left ear H8 3.02 [place] [address] [place] [id number] [address] [place] [id number] Nov, BMI 40.0-44.9, adult Z68.41 ; Chronic kidney disease, stage 4 (severe) N18.4 and Acute right-sided thoracic back pain M54.6 [place] [address] [place] [id number] [address] [place] [id number] October, Labyrinthitis of left ear H8 3.02 and Arthritis M19.90 [place] [address] [place] [id number] [address] [place] [id number] Sep, BPV (benign positional verti go), bilateral H81.13 ; Dysfunction of left eustachian tube H69.82 and BMI 40.0-44.9, adult Z68.41 [place] [address] [facility] [id number] [address] [place] [id number] Sep, Labyrinthitis of left ear H8 3.02 and Arthritis M19.90 [place] [address] [facility] [id number] [address] [place] [phone] Sep, [place] [address] [place] [id number] [address] [place] [id number] Sep, [facility] [address] [facility] [id number] [address] [place] [id number] Sep, Chronic kidney disease, stag e 4 (severe) N18.4 [facility] [address] [id number] [address] [place] [id number] Sep, Chronic kidney disease, stag e 4 (severe) N18.4 [facility] [address] [id number] [address] [place] [id number] Aug, Labyrinthitis of left ear H8 3.02 and Arthritis M19.90 [facility] [address] [facility] [id number] [address] [place] [id number] Aug, [facility] [address] [facility] [id number] [address] [place] [id number] Jul, [facility] [address] [facility] [id number] [address] [place] [address] Jul, Arthritis M19.90 and Labyrin thitis of left ear H83.02 [facility] [address] [facility] [id number] [address] [place] [id number] Jul, [facility] [address] [facility] [id number] [address] [place] [id number] Jun, [facility] [address] [facility] [id number] [address] [place] [address] Jun, Arthritis M19.90 and Labyrin thitis of left ear H83.02 [facility] [address] [facility] [id number] [address] [place] [id number] Jun, Pre-op evaluation Z01.818 ; BMI 40.0-44.9, adult Z68.41 and Encounter for immunization Z23 [facility] [address] [facility] [id number] [address] [place] [address] May, Arthritis M19.90 and Labyrin thitis of left ear H83.02 [place] [address] [facility] [id number] [address] [place] [address] Apr, Labyrinthitis of left ear H8 3.02 [facility] [address] [facility] [id number] [address] [place] [id number] 07 Apr, 2017 Arthritis M19.90 and Labyrin thitis of left ear H83.02 [facility] [address] [place] [id number] [address] [place] [id number] Mar, Arthritis M19.90 and Labyrin thitis of left ear H83.02 [place] [address] [place] [id number] [address] [place] [id number] 05 Mar, 2017 Chronic kidney disease, stag e 4 (severe) N18.4 [place] [address] [place] [id number] [address] [place] [id number] Feb, Arthritis M19.90 and Labyrin thitis of left ear H83.02 [place] [address] [place] [id number] [address] [place] [id number] Jan, Labyrinthitis of left ear H8 3.02 and 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 [place] [address] [facility] [id number] [address] [place] [id number] Dec, Arthritis M19.90 [facility] [address] [place] [id number] [address] [place] [id number] Dec, BPV (benign positional verti go), bilateral H81.13 [place] [address] [facility] [id number] [address] [place] [id number] Dec, [place] [address] [place] [id number] [address] [place] [id number] Dec, [facility] [address] [facility] [id number] [address] [place] [id number] Dec, [place] [address] [place] [id number] [address] [place] [id number] Nov, Arthritis M19.90 and Deficie ncy of other specified B group vitamins E53.8 [facility] [address] [id number] [address] [place] [id number] Nov, Arthritis M19.90 [facility] [address] [id number] [address] [place] [phone] Nov, Hyperparathyroidism E21.3 [facility] [address] [facility] [id number] [address] [place] [id number] October, [facility] [address] [id number] [address] [place] [id number] October, Hyperparathyroidism E21.3 [facility] [address] [facility] [id number] [address] [place] [id number] October, [facility] [address] [facility] [id number] [address] [place] [phone] October, Renal insufficiency N28.9 an d Hyperparathyroidism E21.3 [facility] [address] [facility] [id number] [address] [place] [id number] October, [facility] [address] [facility] [id number] [address] [place] [id number] October, Renal insufficiency N28.9 an d Hyperparathyroidism E21.3 [facility] [address] [facility] [id number] [address] [place] [id number] October, Arthritis M19.90 [facility] [address] [facility] [id number] [address] [place] [id number] Sep, [facility] [address] [facility] [id number] [address] [place] [id number] Sep, Lumbar neuritis M54.16 ; Tho racic abscess J86.9 and 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 [facility] [address] [id number] [address] [place] [id number] Sep, [facility] [address] [facility] [id number] [address] [place] [address] Aug, Arthritis M19.90 [facility] [address] [facility] [id number] [address] [place] [id number] Aug, Hyperparathyroidism E21.3 [facility] [address] [facility] [id number] [address] [place] [id number] Aug, Hyperparathyroidism E21.3 [facility] [address] [facility] [id number] [address] [place] [id number] Aug, Arthritis M19.90 [facility] [address] [facility] [id number] [address] [place] [id number] Jul, Mass of throat R22.1 [facility] [address] [facility] [id number] [address] [place] [id number] Jul, [facility] [address] [place] [id number] [address] [place] [id number] Jul, Arthritis M19.90 [facility] [address] [facility] [id number] [address] [place] [id number] Jun, Arthritis M19.90 [facility] [address] [place] [id number] [address] [place] [id number] Jun, [facility] [address] [facility] [id number] [address] [place] [address] Jun, Renal insufficiency N28.9 an d 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 [facility] [address] [facility] [id number] [address] [place] [address] 05 Jun, 2016 Medicare welcome exam Z00.00 ; Encounter for immunization Z23 ; Arthritis M19.90 ; Medicare annual wellness visit, initial Z00.00 ; Medicare annual wellness visit, subsequent Z00.00 and 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 [facility] [address] [facility] [id number] [address] [place] [id number] May, Renal insufficiency N28.9 an d 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 [facility] [address] [facility] [id number] [address] [place] [id number] 19 May, 2016 Renal insufficiency N28.9 [facility] [address] [facility] [id number] [address] [place] [phone] May, Renal insufficiency N28.9 [facility] [address] [facility] [id number] [address] [place] [id number] 14 May, 2016 [facility] [address] [facility] [id number] [address] [place] [phone] Apr, [facility] [address] [facility] [id number] [address] [place] [id number] 16 Apr, 2016 [facility] [address] [place] [id number] [place] [id number] Apr, Mass of throat R22.1 [facility] [address] [facility] [id number] [address] [place] [id number] Apr, [facility] [address] [facility] [id number] [address] [place] [id number] Apr, Mass of throat R22.1 [facility] [address] [facility] [id number] [address] [place] [id number] 04 Apr, 2016 Mass of throat R22.1 [facility] [address] [facility] [id number] [address] [place] [id number] Mar, [facility] [address] [facility] [id number] [address] [place] [id number] Mar, [facility] [address] [facility] [id number] [address] [place] [id number] Mar, [facility] [address] [place] [id number] [address] [place] [id number] Mar, Parathyroid abnormality E21. 5 and Encounter for immunization Z23 [facility] [address] [facility] [id number] [address] [place] [id number] 17 Mar, 2016 [facility] [address] [place] [id number] [place] [id number] Mar, [facility] [address] [id number] [address] [place] [id number] 21 Feb, 2016 Renal insufficiency N28.9 an d Hyperparathyroidism E21.3 [facility] [address] [id number] [address] [place] [id number] 19 Feb, 2016 [facility] [address] [id number] [address] [place] [id number] 15 Feb, 2016 Renal insufficiency N28.9 an d Hyperparathyroidism E21.3 [facility] [address] [id number] [address] [place] [id number] 14 Feb, 2016 [facility] [address] [id number] [address] [place] [id number] 12 Feb, 2016 [facility] [address] [facility] [id number] [address] [place] [id number] Feb, [facility] [address] [id number] [address] [place] [id number] Jan, [facility] [address] [facility] [id number] [address] [place] [id number] Jan, Arthritis M19.90 ; Lumbago w ith sciatica, right side M54.41 and Other chronic pain G89.29 [facility] [address] [facility] [id number] [address] [place] [id number] Jan, [facility] [address] [facility] [id number] [address] [place] [id number] Dec, Arthritis M19.90 ; Lumbago w ith sciatica, right side M54.41 and Other chronic pain G89.29 [facility] [address] [facility] [id number] [address] [place] [id number] Nov, Deficiency of other specifie d B group vitamins E53.8 ; Primary insomnia F51.01 ; Mood disorder F39 and Lumbago with sciatica, right side M54.41 [facility] [address] [facility] [id number] [address] [place] [id number] Nov, Hyperparathyroidism E21.3 [facility] [address] [id number] Nov, Unspecified kidney failure N 19 and Hyperparathyroidism E21.3 [facility] [address] [id number] October, Hyperparathyroidism E21.3 [facility] [address] [id number] October, [facility] [address] [id number] October, Hyperparathyroidism E21.3 [facility] [address] [id number] October, Hyperparathyroidism E21.3 [facility] [address] [id number] Sep, Hyperparathyroidism E21.3 ; Hypercholesterolemia E78.0 and Arthritis M19.90 [facility] [address] [id number] Aug, [facility] [address] [id number] Aug, Deficiency of other specifie d B group vitamins E53.8 [facility] [address] [id number] Aug, [facility] [address] [id number] Jul, Urinary frequency R35.0 [facility] [address] [id number] Jul, Urinary frequency R35.0 [facility] [address] [id number] Jul, [facility] [address] [id number] Jul, [facility] [address] [id number] [address] [place] [id number] Jun, Pain in left knee M25.562 [facility] [address] [id number] [address] [place] [id number] Jun, [facility] [address] [id number] [address] [place] [id number] May, Swelling of left knee joint M25.462 [facility] [address] [id number] [address] [place] [id number] May, [facility] [address] [id number] [address] [place] [id number] May, [facility] [address] [facility] [id number] [address] [place] [id number] May, [facility] [address] [facility] [id number] [address] [place] [id number] Apr, Renal insufficiency N28.9 an d Chronic kidney disease, stage 4 (severe) N18.4 [facility] [address] [id number] [address] [place] [id number] Apr, Unspecified kidney failure N 19 [facility] [address] [facility] [id number] [address] [place] [id number] Apr, Unspecified kidney failure N 19 [facility] [address] [id number] [address] [place] [id number] Apr, [facility] [address] [id number] [address] [place] [id number] Apr, Hyperparathyroidism, unspeci fied 252.00 [facility] [address] [id number] [address] [place] [phone] Apr, [facility] [address] [facility] [id number] [address] [place] [id number] Mar, [facility] [address] [id number] [address] [place] [id number] Mar, [facility] [address] [id number] [address] [place] [id number] Mar, Hyperparathyroidism, unspeci fied 252.00 [facility] [address] [id number] [address] [place] [id number] Feb, [facility] [address] [id number] [address] [place] [phone] Feb, Otalgia 388.70 [facility] [address] [id number] [address] [place] [id number] Feb, [facility] [address] [id number] [address] [place] [id number] Feb, [facility] [address] [facility] [id number] [address] [place] [id number] Jan, [facility] [address] [id number] [address] [place] [id number] Jan, Hyperparathyroidism, unspeci fied 252.00 [facility] [address] [id number] [address] [place] [phone] Jan, [facility] [address] [facility] [id number] [address] [place] [id number] Jan, Other B-complex deficiencies 266.2 and Hyperparathyroidism, unspecified 252.00 [facility] [address] [id number] [address] [place] [id number] Jan, [facility] [address] [id number] [address] [place] [phone] Jan, [facility] [address] [facility] [id number] [address] [place] [id number] Jan, [facility] [address] [facility] [id number] [address] [place] [phone] Dec, [facility] [address] [facility] [id number] [address] [place] [phone] Dec, [facility] [address] [id number] [address] [place] [id number] Dec, [facility] [address] [id number] [address] [place] [phone] Nov, Routine check-up V70.0 and P re-op exam V72.84 [facility] [address] [id number] [address] [place] [id number] Nov, [facility] [address] [id number] [address] [place] [id number] Nov, [facility] [address] [id number] [address] [place] [id number] October, [facility] [address] [id number] [address] [place] [id number] October, Other B-complex deficiencies 266.2 [facility] [address] [id number] [address] [place] [phone] October, [facility] [address] [id number] [address] [place] [phone] Sep, [facility] [address] [id number] [address] [place] [phone] Sep, [facility] [address] [id number] [address] [place] [phone] Aug, [facility] [address] [id number] [address] [place] [phone] Aug, [facility] [address] [id number] [address] [place] [phone] Aug, [facility] [address] [id number] [address] [place] [phone] 17 Aug, 2014 [facility] [address] [id number] [address] [place] [phone] Aug, [facility] [address] [id number] [address] [place] [id number] Aug, [facility] [address] [id number] [address] [place] [address], [place] [address] Jul, 2014 [facility] [address] [id number] [address] [place] [address], [place] [address] Jul, 2014 [facility] [address] [id number] [address] [place] [address], [place] [address] Jul, 2014 [facility] [address] [id number] [address] [place] [address], [place] [address] Jul, 2014 [facility] [address] [id number] [address] [place] [address], [place] [address] Jul, 2014 [facility] [address] [id number] [address] [place] [address], [place] [address] Jul, 2014 [facility] [address] [id number] [address] [place] [address], [place] [address] Jul, 2014 [facility] [address] [id number] [address] [place] [address], [place] [address] Jul, 2014 [facility] [address] [id number] [address] [place] [address], [place] [address] Jul, 2014 [facility] [address] [id number] [address] [place] [id number] Jul, 2014 [facility] [address] [id number] [address] [place] [address], [place] [address] Jul, 2014 [facility] [address] [id number] [address] [place] [phone] Jul, 2014 [facility] [address] [id number] [address] [place] [address], [place] [address] Jul, 2014 [facility] [address] [id number] [address] [place] [phone] Jul, 2014 [facility] [address] [id number] [address] [place] [phone] Jun, [facility] [address] [id number] [address] [place] [address], [place] [address] Jun, [facility] [address] [id number] [address] [place] [address], [place] [address] Jun, [facility] [address] [id number] [address] [place] [address], [place] [address] Jun, [facility] [address] [id number] [address] [place] [address], [place] [address] Jun, [facility] [address] [id number] [address] [place] [address], [place] [address] Jun, [facility] [address] [id number] [address] [place] [address], [place] [address] Jun, [facility] [address] [id number] [address] [place] [address], [place] [address] Jun, [facility] [address] [id number] [address] [place] [address], [place] [address] Jun, [facility] [address] [id number] [address] [place] [address], [place] [address] Jun, [facility] [address] [id number] [address] [place] [address], [place] [address] Jun, [facility] [address] [id number] [address] [place] [address], [place] [address] Jun, [facility] [address] [id number] [address] [place] [address], [place] [address] Jun, [facility] [address] [id number] [address] [place] [address], [place] [address] Jun, [facility] [address] [id number] [address] [place] [address], [place] [address] May, [facility] [address] [id number] [address] [place] [address], [place] [address] May, [facility] [address] [id number] [address] [place] [address], [place] [address] May, [facility] [address] [id number] [address] [place] [address], [place] [address] May, [facility] [address] [id number] [address] [place] [address], [place] [address] Apr, [facility] [address] [id number] [address] [place] [address], [place] [address] Apr, [facility] [address] [id number] [address] [place] [address], [place] [address] Apr, [facility] [address] [id number] [address] [place] [address], [place] [address] Apr, [facility] [address] [id number] [address] [place] [address], [place] [address] Apr, [facility] [address] [id number] [address] [place] [address], [place] [address] Apr, [facility] [address] [id number] [address] [place] [address], [place] [address] Mar, [facility] [address] [id number] [address] [place] [address], [place] [address] Mar, [facility] [address] [id number] [address] [place] [address], [place] [address] Mar, [facility] [address] [id number] [address] [place] [address], [place] [address] Mar, [facility] [address] [id number] [address] [place] [address], [place] [address] 15 Mar, 2014 [facility] [address] [id number] [address] [place] [address], [place] [address] 15 Mar, 2014 [facility] [address] [id number] [address] [place] [address], [place] [address] Mar, [facility] [address] [id number] [address] [place] [address], [place] [address] Mar, [facility] [address] [id number] [address] [place] [address], [place] [address] 07 Mar, 2013 [facility] [address] [id number] [address] [place] [address], [place] [address] Mar, [facility] [address] [id number] [address] [place] [address], [place] [address] Mar, [facility] [address] [id number] [address] [place] [address], [place] [address] Mar, [facility] [address] [id number] [address] [place] [address], [place] [address] Mar, [facility] [address] [id number] [address] [place] [address], [place] [address] 26 Feb, 2013 [facility] [address] [id number] [address] [place] [address], [place] [address] 26 Feb, 2013 [facility] [address] [id number] [address] [place] [address], [place] [address] 23 Feb, 2013 [facility] [address] [id number] [address] [place] [address], [place] [address] 23 Feb, 2013 [facility] [address] [id number] [address] [place] [address], [place] [address] 19 Feb, 2013 [facility] [address] [id number] [address] [place] [address], [place] [address] 19 Feb, 2013 [facility] [address] [id number] [address] [place] [address], [place] [address] 13 Feb, 2013 [facility] [address] [id number] [address] [place] [address], [place] [address] 13 Feb, 2013 [facility] [address] [id number] [address] [place] [address], [place] [address] 12 Feb, 2013 [facility] [address] [id number] [address] [place] [address], [place] [address] 12 Feb, 2013 [facility] [address] [id number] [address] [place] [address], [place] [address] Jan, [facility] [address] [id number] [address] [address] Jan, [facility] [address] [id number] [address] [place] [address], [place] [address] Dec, [facility] [address] [id number] [address] [place] [address], [place] [address] Dec, [facility] [address] [id number] [address] [place] [address], [place] [address] Dec, [facility] [address] [id number] [address] [place] [address], [place] [address] Dec, [facility] [address] [id number] [address] [place] [address], [place] [address] Dec, [facility] [address] [id number] [address] [place] [address], [place] [address] Dec, [facility] [address] [id number] [address] [place] [address], [place] [address] Nov, [facility] [address] [id number] [address] [place] [address], [place] [address] Nov, [facility] [address] [id number] [address] [place] [address], [place] [address] Nov, [facility] [address] [id number] [address] [place] [address], [place] [address] Nov, [facility] [address] [id number] [address] [place] [address], [place] [address] October, [facility] [address] [id number] [address] [place] [address], [place] [address] October, [facility] [address] [id number] [address] [place] [address], [place] [address] October, [facility] [address] [id number] [address] [place] [address], [place] [address] October, [facility] [address] [id number] [address] [address] October, [facility] [address] [id number] [address] [place] [address], [place] [address] October, [facility] [address] [id number] [address] [place] [address], [place] [address] October, [facility] [address] [id number] [address] [place] [address], [place] [address] October, [facility] [address] [id number] [address] [place] [address], [place] [address] October, [facility] [address] [id number] [address] [place] [address], [place] [address] October, [facility] [address] [id number] [address] [place] [address], [place] [address] October, [facility] [address] [id number] [address] [place] [address], [place] [address] October, [facility] [address] [id number] [address] [place] [address], [place] [address] October, [facility] [address] [id number] [address] [place] [address], [place] [address] October, [facility] [address] [id number] [address] [place] [address], [place] [address] October, [facility] [address] [id number] [address] [place] [address], [place] [address] October, [facility] [address] [id number] [address] [place] [address], [place] [address] Sep, [facility] [address] [id number] [address] [place] [address], [place] [address] Sep, [facility] [address] [id number] [address] [place] [address], [place] [address] Sep, [facility] [address] [id number] [address] [place] [address], [place] [address] Sep, [facility] [address] [id number] [address] [address] Sep, [facility] [address] [id number] [address] [place] [address], [place] [address] Sep, [facility] [address] [id number] [address] [place] [address], [place] [address] Aug, [facility] [address] [id number] [address] [place] [address], [place] [address] Aug, [facility] [address] [id number] [address] [place] [address], [place] [address] Aug, [facility] [address] [id number] [address] [place] [address], [place] [address] Aug, [facility] [address] [id number] [address] [place] [address], [place] [address] Aug, [facility] [address] [id number] [address] [place] [address], [place] [address] Aug, [facility] [address] [id number] [address] [place] [address], [place] [address] Jul, [facility] [address] [id number] [address] [place] [address], [place] [address] Jul, [facility] [address] [id number] [address] [place] [address], [place] [address] Jul, [facility] [address] [id number] [address] [place] [address], [place] [address] Jul, [facility] [address] [id number] [address] [place] [address], [place] [address] Jun, [facility] [address] [id number] [address] [place] [address], [place] [address] Jun, [facility] [address] [id number] [address] [place] [address], [place] [address] May, [facility] [address] [id number] [address] [place] [address], [place] [address] 11 May, 2013 [facility] [address] [id number] [address] [place] [address], [place] [address] 10 May, 2013 [facility] [address] [id number] [address] [place] [address], [place] [address] 09 May, 2013 [facility] [address] [id number] [address] [place] [address], [place] [address] May, [facility] [address] [id number] [address] [place] [address], [place] [address] Apr, [facility] [address] [id number] [address] [place] [address], [place] [address] Apr, [facility] [address] [id number] [address] [place] [address], [place] [address] Apr, [facility] [address] [id number] [address] [place] [address], [place] [address] Apr, [facility] [address] [id number] [address] [place] [address], [place] [address] Apr, [facility] [address] [id number] [address] [place] [address], [place] [address] 04 Apr, 2013 [facility] [address] [id number] [address] [place] [id number] 15 Mar, 2013 [facility] [address] [id number] [address] [place] [address], [place] [address] 15 Mar, 2013 [facility] [address] [id number] [address] [place] [id number] 14 Mar, 2013 [facility] [address] [id number] [address] [place] [address], [place] [address] 14 Mar, 2013 [facility] [address] [id number] [address] [place] [id number] 11 Mar, 2013 [facility] [address] [id number] [address] [place] [id number] Mar, [facility] [address] [id number] [address] [place] [address], [place] [address] Feb, [facility] [address] [id number] [address] [place] [address], [place] [address] Feb, [facility] [address] [id number] [address] [place] [address], [place] [address] Feb, [facility] [address] [id number] [address] [place] [address], [place] [address] Jan, [facility] [address] [id number] [address] [place] [address], [place] [address] Jan, [facility] [address] [id number] [address] [place] [address], [place] [address] Jan, [facility] [address] [id number] [address] [place] [address], [place] [address] Jan, [facility] [address] [id number] [address] [place] [address], [place] [address] Jan, [facility] [address] [id number] [address] [place] [address], [place] [address] Jan, [facility] [address] [id number] [address] [place] [address], [place] [address] Dec, [facility] [address] [id number] [address] [place] [address], [place] [address] Dec, [facility] [address] [id number] [address] [place] [address], [place] [address] Dec, [facility] [address] [id number] [address] [place] [address], [place] [address] Dec, [facility] [address] [id number] [address] [place] [address], [place] [address] Dec, [facility] [address] [id number] [address] [place] [address], [place] [address] Dec, [facility] [address] [id number] [address] [place] [address], [place] [address] 26 Nov, 2012 [facility] [address] [id number] [address] [place] [address], [place] [address] Nov, [facility] [address] [id number] [address] [place] [address], [place] [address] 18 Nov, 2012 [facility] [address] [id number] [address] [place] [address], [place] [address] 13 Nov, 2012 [facility] [address] [id number] [address] [place] [address], [place] [address] Nov, [facility] [address] [id number] [address] [place] [address], [place] [address] Nov, [facility] [address] [id number] [address] [place] [address], [place] [address] October, [facility] [address] [id number] [address] [place] [address], [place] [address] October, [facility] [address] [id number] [address] [place] [address], [place] [address] October, [facility] [address] [id number] [address] [place] [address], [place] [address] October, [facility] [address] [id number] [address] [place] [address], [place] [address] October, [facility] [address] [id number] [address] [place] [address], [place] [address] 30 Sep, 2012 [facility] [address] [id number] [address] [place] [address], [place] [address] Sep, [facility] [address] [id number] [address] [place] [address], [place] [address] Sep, [facility] [address] [id number] [address] [place] [address], [place] [address] 18 Sep, 2012 [facility] [address] [id number] [address] [place] [address], [place] [address] Sep, [facility] [address] [id number] [address] [place] [address], [place] [address] 26 Aug, 2012 [facility] [address] [id number] [address] [place] [address], [place] [address] 07 Aug, 2012 [facility] [address] [id number] [address] [place] [address], [place] [address] 04 Aug, 2012 [facility] [address] [id number] [address] [place] [address], [place] [address] 21 Jul, 2012 [facility] [address] [id number] [address] [place] [address], [place] [address] 20 Jul, 2012 [facility] [address] [id number] [address] [place] [address], [place] [address] 11 Jul, 2012 [facility] [facility] [address] [id number] [address] [place] [address], [place] [id number] 08 Jul, 2012 [facility] [address] [id number] [address] [place] [address], [place] [id number] 06 Jul, 2012 [facility] [address] [id number] [address] [place] [address], [place] [id number] 05 Jul, 2012 [facility] [address] [id number] [address] [place] [address], [place] [id number] 15 Jun, 2012 [facility] [address] [id number] [address] [place] [address], [place] [id number] 16 Apr, 2012 [facility] [address] [id number] [address] [place] [address], [place] [id number] 16 Apr, 2012 [facility] [address] [id number] [address] [place] [address], [place] [address] Apr, [facility] [address] [id number] [address] [place] [address], [place] [address] Apr, [facility] [address] [id number] [address] [place] [address], [place] [id number] 19 Mar, 2012 [facility] [address] [id number] [address] [place] [address], [place] [id number] Mar, [facility] [address] [id number] [address] [place] [address], [place] [address] Mar, [facility] [address] [id number] [address] [place] [address], [place] [address] Mar, [facility] [address] [id number] [address] [place] [address], [place] [address] Mar, [facility] [address] [id number] [address] [place] [address], [place] [address] Feb, [facility] [address] [id number] [address] [place] [address], [place] [address] Jan, [facility] [address] [id number] [address] [place] [address], [place] [address] Jan, [facility] [address] [id number] [address] [place] [address], [place] [address] Jan, [facility] [address] [id number] [address] [place] [address], [place] [address] Dec, [facility] [address] [id number] [address] [place] [address], [place] [address] Nov, [facility] [address] [id number] [address] [place] [address], [place] [address] Nov, [facility] [address] [id number] [address] [place] [address], [place] [address] Nov, [facility] [address] [id number] [address] [place] [id number] Nov, [facility] [address] [id number] [address] [place] [address], [place] [address] Nov, [facility] [address] [id number] [address] [place] [address], [place] [address] October, [facility] [address] [id number] [address] [place] [address], [place] [address] October, [facility] [address] [id number] [address] [place] [id number] October, [facility] [address] [facility] [id number] [address] [place] [id number] October, [facility] [address] [facility] [id number] [address] [place] [id number] October, IMMUNIZATIONS No Known Immunizations SOCIAL HISTORY Never Assessed REASON FOR VISIT knee pain PLAN OF CARE Activity Details Follow Up 1 Week Reason: VITAL SIGNS MEDICATIONS Unknown Medications RESULTS No [...]
--- OUTSIDE RECORDS SUMMARY | 2020-01-25 07:48 | XMS REPORT ---
Author Author Velma CORDERO Organization [facility] Address [address] [place] [address] Care Team Providers Care Pulmonary Disease Specialist Name Role Phone STEPHAN CORDERO Unavailable PROBLEMS Type Condition ICD9-CM Code XET27-GG Code Onset Dates Condition S tatus SNOMED Code Problem Primary insomnia F51.01 Active 397 2004 Problem Hypercholesteremia E78.0 Active 1 4661052 Problem Corns L84 Active 106974883 Problem Arthritis M19.90 Active 8861544 Problem Hyperparathyroidism E21.3 Active 44403159 Problem 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 Active 32360761 Problem 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 Active 99352602 Problem BPV (benign positional vertigo), bilateral H81.13 Active 785423112 Problem Unspecified kidney failure N19 Act chip 93059381 Problem Myalgia M79.1 Active 70686235 Problem 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 Active 988402763 Problem Mood disorder F39 Active 123640 05 Problem Chronic kidney disease, stage 4 (severe) N18.4 Active 604999559 Problem Primary osteoarthritis of left knee M17.12 Active [id number] Problem Irritable bowel syndrome with both constipation and diarrh ea K58.2 Active 34357982 Problem Body mass index (BMI) of 40.0-44.9 in adult Z68.41 Active 438863623 ALLERGIES No Information ENCOUNTERS Encounter Location Date Diagnosis [facility] [address] [facility] [id number] [address] [place] [phone] Dec, Arthritis M19.90 [facility] [address] [facility] [id number] [address] [place] [phone] Nov, Inflammatory spondylopathy o f sacral region M46.98 [facility] [address] [facility] [id number] [address] [place] [phone] Nov, [facility] [address] [facility] [id number] [address] [place] [address] Nov, Labyrinthitis of left ear H8 3.02 [facility] [address] [facility] [id number] [address] [place] [address] 03 Nov, [address] [facility] [address] [facility] [id number] [address] [place] [phone] 15 Sep, [address] [facility] [address] [facility] [id number] [address] [place] [phone] Sep, Renal insufficiency N28.9 an d Unspecified kidney failure N19 [facility] [address] [facility] [id number] [address] [place] [phone] Sep, Renal insufficiency N28.9 an d Unspecified kidney failure N19 [facility] [address] [facility] [id number] [address] [place] [address] Sep, Arthritis M19.90 [facility] [address] [facility] [id number] [address] [place] [phone] Aug, Exercise counseling Z71.82 [facility] [address] [facility] [id number] [address] [place] [phone] Aug, [facility] [address] [facility] [id number] [address] [place] [phone] Jul, Labyrinthitis of left ear H8 3.02 [facility] [address] [facility] [id number] [address] [place] [phone] Jul, Labyrinthitis of left ear H8 3.02 [facility] [address] [facility] [id number] [address] [place] [address] Jul, Exercise counseling Z71.82 [facility] [address] [facility] [id number] [address] [place] [phone] Jul, [facility] [address] [facility] [id number] [address] [place] [phone] 14 Jul, 2018 Arthritis M19.90 [place] [address] [facility] [id number] [address] [place] [phone] 13 Jul, 2018 Encounter for Medicare annua l wellness exam Z00.00 ; Chronic kidney disease, stage 4 (severe) N18.4 ; Body mass index (BMI) of 40.0-44.9 in adult Z68.41 ; Hyperparathyroidism E21.3 and BMI 40.0-44.9, adult Z68.41 [place] [address] [facility] [id number] [address] [place] [phone] 13 Jul, 2018 Encounter for Medicare annua l wellness exam Z00.00 ; Chronic kidney disease, stage 4 (severe) N18.4 ; Hyperparathyroidism E21.3 ; Body mass index (BMI) of 40.0-44.9 in adult Z68.41 and Encounter for immunization Z23 [place] [address] [place] [id number] [address] [place] [phone] 11 Jul, 2018 Tail bone pain M53.3 [place] [address] [place] [id number] [address] [place] [phone] 29 Jun, 2018 Exercise counseling Z71.82 [place] [address] [place] [id number] [place] [address] Jun, Labyrinthitis of left ear H8 3.02 [place] [address] [place] [id number] [address] [place] [address] Jun, Tail bone pain M53.3 ; Irrit able bowel syndrome with both constipation and diarrhea K58.2 and Dysfunction of left eustachian tube H69.82 [place] [address] [facility] [id number] [address] [place] [phone] Jun, Exercise counseling Z71.82 [place] [address] [place] [id number] [address] [place] [address] Jun, Arthritis M19.90 [place] [address] [place] [id number] [address] [place] [phone] Jun, Irritable bowel syndrome wit h both constipation and diarrhea K58.2 ; Tail bone pain M53.3 and Dysfunction of left eustachian tube H69.82 [facility] [address] [id number] [address] [place] [phone] Jun, Exercise counseling Z71.82 [facility] [address] [id number] [address] [place] [address] Jun, Exercise counseling Z71.82 [facility] [address] [id number] [address] [place] [address] Jun, Labyrinthitis of left ear H8 3.02 [place] [address] [id number] [address] [place] [address] May, Exercise counseling Z71.82 [place] [address] [id number] [address] [place] [address] May, Arthritis M19.90 [facility] [address] [id number] [address] [place] [phone] May, Exercise counseling Z71.82 [facility] [address] [id number] [address] [place] [phone] May, Exercise counseling Z71.82 [facility] [address] [id number] [address] [place] [phone] May, Labyrinthitis of left ear H8 3.02 [facility] [address] [id number] [address] [place] [address] May, Exercise counseling Z71.82 [facility] [address] [id number] [address] [place] [address] Apr, Arthritis M19.90 [facility] [address] [id number] [address] [place] [address] Apr, Exercise counseling Z71.82 [facility] [address] [id number] [address] [place] [address] Apr, Exercise counseling Z71.82 [place] [address] [address] Apr, Primary osteoarthritis of le ft knee M17.12 [place] [address] [address] Apr, Labyrinthitis of left ear H8 3.02 [place] [address] [address] Mar, Arthritis M19.90 [place] [address] [address] Mar, [place] [address] [address] Mar, Chronic kidney disease, stag e 4 (severe) N18.4 [place] [address] [address] Mar, Chronic kidney disease, stag e 4 (severe) N18.4 [place] [address] [address] Mar, Labyrinthitis of left ear H8 3.02 [place] [address] [phone] 05 Mar, 2018 Chronic kidney disease, stag e 4 (severe) N18.4 ; Knee pain, left anterior M25.562 ; 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 and Encounter for immunization Z23 [place] [address] [place] [id number] [address] [place] [address] Mar, Arthritis M19.90 [place] [address] [phone] Feb, Labyrinthitis of left ear H8 3.02 [place] [address] [phone] 06 Feb, 2018 Arthritis M19.90 [place] [address] [place] [id number] [address] [place] [address] Jan, Labyrinthitis of left ear H8 3.02 [facility] [address] [facility] [id number] [address] [place] [address] Jan, Arthritis M19.90 [facility] [address] [facility] [id number] [address] [place] [phone] Dec, Labyrinthitis of left ear H8 3.02 [facility] [address] [facility] [id number] [address] [place] [phone] Nov, Arthritis M19.90 [place] [address] [place] [id number] [address] [place] [address] Nov, Labyrinthitis of left ear H8 3.02 [place] [address] [place] [id number] [address] [place] [address] Nov, BMI 40.0-44.9, adult Z68.41 ; Chronic kidney disease, stage 4 (severe) N18.4 and Acute right-sided thoracic back pain M54.6 [place] [address] [place] [id number] [address] [place] [address] October, Labyrinthitis of left ear H8 3.02 and Arthritis M19.90 [place] [address] [place] [id number] [address] [place] [address] Sep, BPV (benign positional verti go), bilateral H81.13 ; Dysfunction of left eustachian tube H69.82 and BMI 40.0-44.9, adult Z68.41 [place] [address] [facility] [id number] [address] [place] [address] Sep, Labyrinthitis of left ear H8 3.02 and Arthritis M19.90 [place] [address] [facility] [id number] [address] [place] [address] Sep, [place] [address] [place] [id number] [address] [place] [address] Sep, [facility] [address] [id number] [address] [place] [address] Sep, Chronic kidney disease, stag e 4 (severe) N18.4 [facility] [address] [id number] [address] [place] [phone] Sep, Chronic kidney disease, stag e 4 (severe) N18.4 [facility] [address] [id number] [address] [place] [address] Aug, Labyrinthitis of left ear H8 3.[address] [facility] [address] [id number] [address] [place] [address] Aug, [facility] [address] [id number] [address] [place] [phone] Jul, [facility] [address] [facility] [id number] [address] [place] [address] Jul, Arthritis M19.90 and Labyrin thitis of left ear H83.02 [facility] [address] [id number] [address] [place] [address] Jul, [facility] [address] [id number] [address] [place] [phone] Jun, [facility] [address] [id number] [address] [place] [phone] Jun, Arthritis M19.90 and Labyrin thitis of left ear H83.02 [facility] [address] [facility] [id number] [address] [place] [address] Jun, Pre-op evaluation Z01.818 ; BMI 40.0-44.9, adult Z68.41 and Encounter for immunization Z23 [facility] [address] [facility] [id number] [address] [place] [address] May, Arthritis M19.90 and Labyrin thitis of left ear H83.02 [facility] [address] [place] [id number] [address] [place] [address] Apr, Labyrinthitis of left ear H8 3.02 [place] [address] [place] [id number] [address] [place] [address] Apr, Arthritis M19.90 and Labyrin thitis of left ear H83.02 [place] [address] [place] [id number] [address] [place] [address] Mar, Arthritis M19.90 and Labyrin thitis of left ear H83.02 [place] [address] [place] [id number] [address] [place] [address] Mar, Chronic kidney disease, stag e 4 (severe) N18.4 [place] [address] [place] [id number] [address] [place] [address] Feb, Arthritis M19.90 and Labyrin thitis of left ear H83.02 [place] [address] [place] [id number] [place] [address] Jan, Labyrinthitis of left ear H8 3.02 and 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 [place] [address] [place] [id number] [address] [place] [address] Dec, Arthritis M19.90 [place] [address] [place] [id number] [address] [place] [address] Dec, BPV (benign positional verti go), bilateral H81.13 [place] [address] [place] [id number] [address] [place] [address] Dec, [place] [address] [place] [id number] [address] [place] [address] Dec, [place] [address] [place] [id number] [address] [place] [phone] Dec, [place] [address] [place] [id number] [address] [place] [address] Nov, Arthritis M19.90 and Deficie ncy of other specified B group vitamins E53.8 [facility] [address] [id number] [address] [place] [address] Nov, Arthritis M19.90 [facility] [address] [id number] [address] [place] [address] Nov, Hyperparathyroidism E21.3 [facility] [address] [facility] [id number] [address] [place] [address] October, [facility] [address] [id number] [address] [place] [address] October, Hyperparathyroidism E21.3 [facility] [address] [facility] [id number] [address] [place] [address] October, [facility] [address] [facility] [id number] [address] [place] [phone] October, Renal insufficiency N28.9 an d Hyperparathyroidism E21.3 [facility] [address] [facility] [id number] [address] [place] [address] October, [facility] [address] [facility] [id number] [address] [place] [address] October, Renal insufficiency N28.9 an d Hyperparathyroidism E21.3 [facility] [address] [facility] [id number] [address] [place] [address] October, Arthritis M19.90 [facility] [address] [facility] [id number] [address] [place] [address] Sep, [facility] [address] [facility] [id number] [address] [place] [address] Sep, Lumbar neuritis M54.16 ; Tho racic abscess J86.9 and 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 [facility] [address] [id number] [address] [place] [address] Sep, [facility] [address] [facility] [id number] [address] [place] [address] Aug, Arthritis M19.90 [facility] [address] [facility] [id number] [address] [place] [address] Aug, Hyperparathyroidism E21.3 [facility] [address] [facility] [id number] [address] [place] [address] Aug, Hyperparathyroidism E21.3 [facility] [address] [facility] [id number] [address] [place] [address] Aug, Arthritis M19.90 [facility] [address] [facility] [id number] [address] [place] [address] Jul, Mass of throat R22.1 [facility] [address] [place] [id number] [address] [place] [address] Jul, [facility] [address] [address] Jul, Arthritis M19.90 [facility] [address] [place] [id number] [address] [place] [address] Jun, Arthritis M19.90 [facility] [address] [place] [id number] [address] [place] [address] Jun, [facility] [id number] [place] [address] Jun, Renal insufficiency N28.9 an d 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 [facility] [address] [facility] [id number] [address] [place] [address] 05 Jun, 2016 Medicare welcome exam Z00.00 ; Encounter for immunization Z23 ; Arthritis M19.90 ; Medicare annual wellness visit, initial Z00.00 ; Medicare annual wellness visit, subsequent Z00.00 and Deficiency of other specified B group vitamins E53.8 [facility] [address] [facility] [id number] [address] [place] [phone] May, Renal insufficiency N28.9 an d 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 [facility] [address] [facility] [id number] [address] [place] [phone] 19 May, [address] [facility] [address] [facility] [id number] [address] [place] [phone] 16 May, [address] [facility] [address] [facility] [id number] [address] [place] [phone] 14 May, 2016 [facility] [address] [facility] [id number] [address] [place] [phone] 16 Apr, 2016 [facility] [address] [facility] [id number] [address] [place] [phone] 16 Apr, 2016 [facility] [address] [facility] [id number] [address] [place] [phone] 14 Apr, 2016 Mass of throat R22.1 [facility] [address] [facility] [id number] [address] [place] [phone] 10 Apr, 2016 [facility] [address] [facility] [id number] [address] [place] [address] 10 Apr, 2016 Mass of throat R22.1 [facility] [address] [facility] [id number] [address] [place] [phone] 04 Apr, 2016 Mass of throat R22.1 [facility] [address] [facility] [id number] [address] [place] [phone] 31 Mar, 2016 [facility] [address] [facility] [id number] [address] [place] [phone] Mar, [facility] [address] [facility] [id number] [address] [place] [phone] Mar, [facility] [address] [facility] [id number] [address] [place] [phone] 24 Mar, 2016 Parathyroid abnormality E21. 5 and Encounter for immunization Z23 [facility] [address] [facility] [id number] [address] [place] [phone] 17 Mar, 2016 [facility] [address] [facility] [id number] [address] [place] [phone] Mar, [facility] [address] [id number] [address] [place] [phone] 21 Feb, 2016 Renal insufficiency N28.9 an d Hyperparathyroidism E21.3 [facility] [address] [id number] [address] [place] [phone] 19 Feb, 2016 [facility] [address] [id number] [address] [place] [phone] 15 Feb, 2016 Renal insufficiency N28.9 an d Hyperparathyroidism E21.3 [facility] [address] [id number] [address] [place] [phone] 14 Feb, 2016 [facility] [address] [id number] [address] [place] [phone] 12 Feb, 2016 [facility] [address] [facility] [id number] [address] [place] [phone] Feb, [facility] [address] [facility] [id number] [address] [place] [phone] Jan, [facility] [address] [facility] [id number] [address] [place] [phone] Jan, Arthritis M19.90 ; Lumbago w ith sciatica, right side M54.41 and Other chronic pain G89.29 [facility] [address] [facility] [id number] [address] [place] [phone] Jan, [facility] [address] [facility] [id number] [address] [place] [phone] Dec, Arthritis M19.90 ; Lumbago w ith sciatica, right side M54.41 and Other chronic pain G89.29 [facility] [address] [facility] [id number] [address] [place] [phone] Nov, Deficiency of other specifie d B group vitamins E53.8 ; Primary insomnia F51.01 ; Mood disorder F39 and Lumbago with sciatica, right side M54.41 [facility] [address] [facility] [id number] [address] [place] [phone] Nov, Hyperparathyroidism E21.3 [facility] [address] [facility] [id number] [address] [place] [phone] Nov, Unspecified kidney failure N [address] [facility] [address] [facility] [id number] [address] [place] [phone] October, Hyperparathyroidism E21.3 [facility] [address] [phone] October, [facility] [address] [phone] October, Hyperparathyroidism E21.3 [facility] [address] [phone] October, Hyperparathyroidism E21.3 [facility] [address] [phone] Sep, Hyperparathyroidism E21.3 ; Hypercholesterolemia E78.0 and Arthritis M19.90 [facility] [address] [address] Aug, [facility] [address] [address] Aug, Deficiency of other specifie d B group vitamins E53.8 [facility] [address] [place] [place] [id number] [address] [place] [address] Aug, [facility] [address] [address] Jul, Urinary frequency R35.0 [facility] [address] [address] Jul, Urinary frequency R35.0 [facility] [address] [address] [id number] [address] [place] [address] Jul, [facility] [address] [address] Jul, [facility] [address] [id number] [address] [place] [address] Jun, Pain in left knee M25.562 [facility] [address] [id number] [address] [place] [address] Jun, [facility] [address] [id number] [address] [place] [address] May, Swelling of left knee joint M25.462 [facility] [address] [id number] [address] [place] [address] May, [facility] [address] [id number] [address] [place] [address] May, [facility] [address] [facility] [id number] [address] [place] [address] May, [facility] [address] [facility] [id number] [address] [place] [address] Apr, Renal insufficiency N28.9 an d Chronic kidney disease, stage 4 (severe) N18.4 [facility] [address] [facility] [id number] [address] [place] [address] Apr, Unspecified kidney failure N 19 [facility] [address] [facility] [id number] [address] [place] [address] Apr, Unspecified kidney failure N 19 [facility] [address] [facility] [id number] [address] [place] [address] Apr, [facility] [address] [facility] [id number] [address] [place] [address] Apr, Hyperparathyroidism, unspeci fied 252.00 [facility] [address] [facility] [id number] [address] [place] [address] Apr, [facility] [address] [facility] [id number] [address] [place] [id number] Mar, [facility] [address] [facility] [id number] [address] [place] [address] Mar, [facility] [address] [id number] [address] [place] [address] Mar, Hyperparathyroidism, unspeci fied 252.00 [facility] [address] [id number] [address] [place] [address] Feb, [facility] [address] [facility] [id number] [address] [place] [address] Feb, Otalgia 388.70 [facility] [address] [facility] [id number] [address] [place] [address] Feb, [facility] [address] [facility] [id number] [address] [place] [address] Feb, [facility] [address] [facility] [id number] [address] [place] [address] Jan, [facility] [address] [facility] [id number] [address] [place] [address] Jan, Hyperparathyroidism, unspeci fied 252.00 [facility] [address] [id number] [address] [place] [id number] Jan, [facility] [address] [facility] [id number] [address] [place] [address] Jan, Other B-complex deficiencies 266.2 and Hyperparathyroidism, unspecified 252.00 [facility] [address] [facility] [id number] [address] [place] [address] Jan, [facility] [address] [facility] [id number] [address] [place] [id number] Jan, [facility] [address] [facility] [id number] [address] [place] [address] Jan, [facility] [address] [facility] [id number] [address] [place] [phone] Dec, [facility] [address] [facility] [id number] [address] [place] [id number] Dec, [facility] [place] [address] [id number] [address] [place] [id number] Dec, [facility] [place] [address] [id number] [address] [place] [address] Nov, Routine check-up V70.0 and P re-op exam V72.84 [facility] [address] [id number] [address] [place] [id number] Nov, [facility] [address] [id number] [address] [place] [id number] Nov, [facility] [address] [id number] [address] [place] [phone] October, [facility] [place] [address] [id number] [address] [place] [id number] October, Other B-complex deficiencies 266.2 [facility] [place] [address] [id number] [address] [place] [id number] October, [facility] [address] [id number] [address] [place] [phone] Sep, [facility] [place] [address] [id number] [address] [place] [id number] Sep, [facility] [place] [address] [id number] [address] [place] [id number] Aug, [facility] [address] [id number] [address] [place] [phone] Aug, [facility] [address] [id number] [address] [place] [id number] Aug, [facility] [address] [id number] [address] [place] [id number] 17 Aug, 2014 [facility] [place] [address] [id number] [address] [place] [id number] Aug, [facility] [place] [address] [id number] [address] [place] [phone] Aug, [facility] [address] [id number] [address] [place] [address], [place] [address] Jul, 2014 [facility] [address] [id number] [address] [place] [address], [place] [address] Jul, 2014 [facility] [address] [id number] [address] [place] [address], [place] [address] Jul, 2014 [facility] [address] [id number] [address] [place] [address], [place] [address] Jul, 2014 [facility] [address] [id number] [address] [place] [address], [place] [address] Jul, 2014 [facility] [address] [id number] [address] [place] [address], [place] [address] Jul, 2014 [facility] [address] [id number] [address] [place] [address], [place] [address] Jul, 2014 [facility] [address] [id number] [address] [place] [address], [place] [address] Jul, 2014 [facility] [address] [id number] [address] [place] [address], [place] [address] Jul, 2014 [facility] [address] [id number] [address] [place] [address], [place] [address] Jul, 2014 [facility] [address] [id number] [address] [place] [address], [place] [address] Jul, 2014 [facility] [address] [id number] [address] [place] [address], [place] [address] Jul, 2014 [facility] [address] [id number] [address] [place] [address], [place] [address] Jul, 2014 [facility] [address] [id number] [address] [place] [address], [place] [address] Jul, 2014 [facility] [address] [id number] [address] [place] [address], [place] [address] Jun, [facility] [address] [id number] [address] [place] [address], [place] [address] Jun, [facility] [address] [id number] [address] [place] [address], [place] [address] Jun, [facility] [address] [id number] [address] [place] [address], [place] [address] Jun, [facility] [address] [id number] [address] [place] [address], [place] [address] Jun, [facility] [address] [id number] [address] [place] [address], [place] [address] Jun, [facility] [address] [id number] [address] [place] [address], [place] [address] Jun, [facility] [address] [id number] [address] [place] [address], [place] [address] Jun, [facility] [address] [id number] [address] [place] [address], [place] [address] Jun, [facility] [address] [id number] [address] [place] [address], [place] [address] Jun, [facility] [address] [id number] [address] [place] [address], [place] [address] Jun, [facility] [address] [id number] [address] [place] [address], [place] [address] Jun, [facility] [address] [id number] [address] [place] [phone] Jun, [facility] [address] [id number] [address] [place] [address], [place] [address] Jun, [facility] [address] [id number] [address] [place] [address], [place] [address] May, [facility] [address] [id number] [address] [place] [address], [place] [address] May, [facility] [address] [id number] [address] [place] [id number] May, [facility] [address] [id number] [address] [place] [address], [place] [address] May, [facility] [address] [id number] [address] [place] [address], [place] [address] Apr, [facility] [address] [id number] [address] [place] [address], [place] [address] Apr, [facility] [address] [id number] [address] [place] [address], [place] [address] Apr, [facility] [address] [id number] [address] [place] [address], [place] [address] Apr, [facility] [address] [id number] [address] [place] [address], [place] [address] Apr, [facility] [address] [id number] [address] [place] [address], [place] [address] Apr, [facility] [address] [id number] [address] [place] [address], [place] [address] Mar, [facility] [address] [id number] [address] [place] [address], [place] [address] Mar, [facility] [address] [id number] [address] [place] [address], [place] [address] Mar, [facility] [address] [id number] [address] [place] [address], [place] [address] Mar, [facility] [address] [id number] [address] [place] [id number] 15 Mar, 2014 [facility] [address] [id number] [address] [place] [address], [place] [address] 15 Mar, 2014 [facility] [address] [id number] [address] [place] [id number] Mar, [facility] [address] [id number] [address] [place] [address] Mar, [facility] [address] [id number] [address] [place] [address], [place] [address] 07 Mar, 2013 [facility] [address] [id number] [address] [place] [address], [place] [address] 07 Mar, 2013 [facility] [address] [id number] [address] [place] [address], [place] [address] 07 Mar, 2013 [facility] [address] [id number] [address] [place] [address], [place] [address] 07 Mar, 2013 [facility] [address] [id number] [address] [place] [address], [place] [address] 06 Mar, 2013 [facility] [address] [id number] [address] [place] [address], [place] [address] 26 Feb, 2013 [facility] [address] [id number] [address] [place] [address], [place] [address] 26 Feb, 2013 [facility] [address] [id number] [address] [place] [address], [place] [address] 23 Feb, 2013 [facility] [address] [id number] [address] [place] [address], [place] [address] 23 Feb, 2013 [facility] [address] [id number] [address] [place] [address], [place] [address] 19 Feb, 2013 [facility] [address] [id number] [address] [place] [address], [place] [address] 19 Feb, 2013 [facility] [address] [id number] [address] [place] [address], [place] [address] 13 Feb, 2013 [facility] [address] [id number] [address] [place] [address], [place] [address] 13 Feb, 2013 [facility] [address] [id number] [address] [place] [address], [place] [address] 12 Feb, 2013 [facility] [address] [id number] [address] [place] [address], [place] [address] 12 Feb, 2013 [facility] [address] [id number] [address] [place] [address], [place] [address] Jan, [facility] [address] [id number] [facility] [place] [address] Jan, [facility] [address] [id number] [facility] [place] [address] Dec, [facility] [address] [id number] [facility] [place] [address] Dec, [facility] [address] [id number] [address] [place] [address], [place] [address] Dec, [facility] [address] [id number] [address] [place] [address], [place] [address] Dec, [facility] [address] [id number] [address] [place] [address], [place] [address] Dec, [facility] [address] [id number] [address] [place] [address], [place] [address] Dec, [facility] [address] [id number] [address] [place] [address], [place] [address] Nov, [facility] [address] [id number] [address] [place] [address], [place] [address] Nov, [facility] [address] [id number] [address] [place] [address], [place] [address] Nov, [facility] [address] [id number] [address] [place] [address], [place] [address] Nov, [facility] [address] [id number] [address] [place] [address], [place] [address] October, [facility] [address] [id number] [address] [place] [address], [place] [address] October, [facility] [address] [id number] [address] [place] [address], [place] [address] October, [facility] [address] [id number] [address] [place] [address], [place] [address] October, [facility] [address] [id number] [address] [place] [address], [place] [address] October, [facility] [address] [id number] [address] [place] [address], [place] [address] October, [facility] [address] [id number] [address] [place] [address], [place] [address] October, [facility] [address] [id number] [address] [place] [address], [place] [address] October, [facility] [address] [id number] [address] [place] [address], [place] [address] October, [facility] [address] [id number] [address] [place] [address], [place] [address] October, [facility] [address] [id number] [address] [place] [address], [place] [address] October, [facility] [address] [id number] [address] [place] [address], [place] [address] October, [facility] [address] [id number] [address] [place] [address], [place] [address] October, [facility] [address] [id number] [address] [place] [address], [place] [address] October, [facility] [address] [id number] [address] [place] [address], [place] [address] October, [facility] [address] [id number] [address] [place] [address], [place] [address] October, [facility] [address] [id number] [address] [place] [address], [place] [address] Sep, [facility] [address] [id number] [address] [place] [address], [place] [address] Sep, [facility] [address] [id number] [address] [place] [address], [place] [address] Sep, [facility] [address] [id number] [address] [place] [address], [place] [address] Sep, [facility] [address] [id number] [address] [place] [address], [place] [address] Sep, [facility] [address] [id number] [address] [place] [address], [place] [address] Sep, [facility] [address] [id number] [address] [place] [address], [place] [address] Aug, [facility] [address] [id number] [address] [place] [address], [place] [address] Aug, [facility] [address] [id number] [address] [place] [address], [place] [address] Aug, [facility] [address] [id number] [address] [place] [address], [place] [address] Aug, [facility] [address] [id number] [address] [place] [address], [place] [address] Aug, [facility] [address] [id number] [address] [place] [address], [place] [address] Aug, [facility] [address] [id number] [address] [place] [address], [place] [address] Jul, [facility] [address] [id number] [address] [place] [address], [place] [address] Jul, [facility] [address] [id number] [address] [place] [address], [place] [address] Jul, [facility] [address] [id number] [address] [place] [address], [place] [address] Jul, [facility] [address] [id number] [address] [place] [address], [place] [address] Jun, [facility] [address] [id number] [address] [place] [address], [place] [address] Jun, [facility] [address] [id number] [address] [place] [address], [place] [address] May, [facility] [address] [id number] [address] [place] [id number] 11 May, 2013 [facility] [address] [id number] [address] [place] [address], [place] [address] 10 May, 2013 [facility] [address] [id number] [address] [place] [id number] May, [facility] [address] [id number] [address] [place] [id number] May, [facility] [address] [id number] [address] [place] [id number] Apr, [facility] [address] [id number] [address] [place] [id number] Apr, [facility] [address] [id number] [address] [place] [id number] Apr, [facility] [address] [id number] [address] [place] [id number] Apr, [facility] [address] [id number] [address] [place] [id number] Apr, [facility] [address] [id number] [address] [place] [id number] 04 Apr, 2013 [facility] [address] [id number] [address] [place] [id number] 15 Mar, 2013 [facility] [address] [id number] [address] [place] [id number] 15 Mar, 2013 [facility] [address] [id number] [address] [place] [id number] 14 Mar, 2013 [facility] [address] [id number] [address] [place] [id number] 14 Mar, 2013 [facility] [address] [id number] [address] [place] [id number] 11 Mar, 2013 [facility] [address] [id number] [address] [place] [id number] 11 Mar, 2013 [facility] [address] [id number] [facility] [place] [address] Feb, [facility] [address] [id number] [address] [place] [address], [place] [address] Feb, [facility] [address] [id number] [address] [place] [address], [place] [address] Feb, [facility] [address] [id number] [address] [place] [address], [place] [address] Jan, [facility] [address] [id number] [address] [place] [address], [place] [address] Jan, [facility] [address] [id number] [address] [place] [address], [place] [address] Jan, [facility] [address] [id number] [address] [place] [address], [place] [address] Jan, [facility] [address] [id number] [address] [place] [address], [place] [address] Jan, [facility] [address] [id number] [address] [place] [address], [place] [address] Jan, [facility] [address] [id number] [address] [place] [address], [place] [address] Dec, [facility] [address] [id number] [address] [place] [address], [place] [address] Dec, [facility] [address] [id number] [address] [place] [address], [place] [address] Dec, [facility] [address] [id number] [address] [place] [address], [place] [address] Dec, [facility] [address] [id number] [address] [place] [address], [place] [address] Dec, [facility] [address] [id number] [address] [place] [address], [place] [address] Dec, [facility] [address] [id number] [address] [place] [address], [place] [address] 26 Nov, 2012 [facility] [address] [id number] [address] [place] [address], [place] [address] 19 Nov, 2012 [facility] [address] [id number] [address] [place] [address], [place] [address] 18 Nov, 2012 [facility] [address] [id number] [address] [place] [address], [place] [address] 13 Nov, 2012 [facility] [address] [id number] [address] [place] [address], [place] [address] Nov, [facility] [address] [id number] [address] [place] [address], [place] [address] Nov, [facility] [address] [id number] [address] [place] [address], [place] [address] October, [facility] [address] [id number] [address] [place] [address], [place] [address] October, [facility] [address] [id number] [address] [place] [address], [place] [address] October, [facility] [address] [id number] [address] [place] [address], [place] [address] October, [facility] [address] [id number] [address] [place] [address], [place] [address] October, [facility] [address] [id number] [address] [place] [address], [place] [address] 30 Sep, 2012 [facility] [address] [id number] [address] [place] [address], [place] [address] Sep, [facility] [address] [id number] [address] [place] [address], [place] [address] Sep, [facility] [address] [id number] [address] [place] [address], [place] [address] 18 Sep, 2012 [facility] [address] [id number] [address] [place] [address], [place] [address] Sep, [facility] [address] [id number] [address] [place] [address], [place] [address] 26 Aug, 2012 [facility] [address] [id number] [address] [place] [address], [place] [address] 07 Aug, 2012 [facility] [address] [id number] [address] [place] [address], [place] [address] 04 Aug, 2012 [facility] [address] [id number] [address] [place] [address], [place] [address] 21 Jul, 2012 [facility] [address] [id number] [address] [place] [address], [place] [address] 20 Jul, 2012 [facility] [address] [id number] [address] [place] [address], [place] [address] 11 Jul, 2012 [facility] [address] [id number] [address] [place] [address], [place] [address] 08 Jul, 2012 [facility] [address] [id number] [address] [place] [address], [place] [address] 06 Jul, 2012 [facility] [address] [id number] [address] [place] [address], [place] [address] 05 Jul, 2012 [facility] [address] [id number] [address] [place] [address], [place] [address] 15 Jun, 2012 [facility] [address] [id number] [address] [place] [address], [place] [address] 16 Apr, 2012 [facility] [address] [id number] [address] [place] [address], [place] [address] 16 Apr, 2012 [facility] [address] [id number] [address] [place] [address], [place] [address] Apr, [facility] [address] [id number] [address] [place] [address], [place] [address] Apr, [facility] [address] [id number] [address] [place] [address], [place] [address] Mar, [facility] [address] [id number] [address] [place] [address], [place] [address] Mar, [facility] [address] [id number] [address] [place] [address], [place] [address] Mar, [facility] [address] [id number] [address] [place] [address], [place] [address] Mar, [facility] [address] [id number] [address] [place] [address], [place] [address] Mar, [facility] [address] [id number] [address] [place] [address], [place] [address] Feb, [facility] [address] [id number] [address] [place] [address], [place] [address] Jan, [facility] [address] [id number] [address] [place] [address], [place] [address] Jan, [facility] [address] [id number] [address] [place] [address], [place] [address] Jan, [facility] [address] [id number] [address] [place] [address], [place] [address] Dec, [facility] [address] [id number] [address] [place] [address], [place] [address] Nov, [facility] [address] [id number] [address] [place] [address], [place] [address] Nov, [facility] [address] [id number] [address] [place] [address], [place] [address] Nov, [facility] [address] [id number] [address] [place] [address] Nov, [facility] [address] [id number] [address] [place] [address], [place] [address] Nov, [facility] [address] [id number] [address] [place] [address], [place] [address] October, [facility] [address] [id number] [address] [place] [address], [place] [address] October, [facility] [address] [id number] [address] [place] [address] October, [facility] [address] [facility] [id number] [address] [place] [address] October, [facility] [address] [facility] [id number] [address] [place] [id number] October, IMMUNIZATIONS No Known Immunizations SOCIAL HISTORY [...]
--- OUTSIDE RECORDS SUMMARY | 2020-01-25 07:49 | XMS REPORT ---
Author Author Velma CORDERO Organization [facility] Address [address] [place] [address] Care Team Providers Care Senior Agricultural Assistant Name Role Phone STEPHAN CORDERO Unavailable PROBLEMS Type Condition ICD9-CM Code [id number] Code Onset Dates Condition S tatus SNOMED Code Problem Primary insomnia F51.01 Active 397 2004 Problem Hypercholesteremia E78.0 Active 1 6416094 Problem Corns L84 Active 502328341 Problem Arthritis M19.90 Active 4238845 Problem Hyperparathyroidism E21.3 Active 65423693 Problem 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 Active 56773178 Problem 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 Active 87029240 Problem BPV (benign positional vertigo), bilateral H81.13 Active 648808221 Problem Unspecified kidney failure N19 Act chip 51094806 Problem Myalgia M79.1 Active 79771438 Problem 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 Active 865503833 Problem Mood disorder F39 Active 481646 05 Problem Chronic kidney disease, stage 4 (severe) N18.4 Active 292211609 Problem Primary osteoarthritis of left knee M17.12 Active [id number] Problem Irritable bowel syndrome with both constipation and diarrh ea K58.2 Active 73134278 Problem Body mass index (BMI) of 40.0-44.9 in adult Z68.41 Active 146533240 ALLERGIES No Information ENCOUNTERS Encounter Location Date Diagnosis [facility] [address] [facility] [id number] [address] [place] [id number] Dec, Arthritis M19.90 [facility] [address] [facility] [id number] [address] [place] [id number] Nov, Inflammatory spondylopathy o f sacral region M46.98 [facility] [address] [facility] [id number] [address] [place] [phone] Nov, [facility] [address] [facility] [id number] [address] [place] [id number] Nov, Labyrinthitis of left ear H8 3.02 [facility] [address] [facility] [id number] [address] [place] [id number] 03 Nov, 2018 Arthritis M19.90 [facility] [address] [facility] [id number] [address] [place] [id number] 15 Sep, 2018 Arthritis M19.90 [facility] [address] [facility] [id number] [address] [place] [id number] Sep, Renal insufficiency N28.9 an d Unspecified kidney failure N19 [facility] [address] [facility] [id number] [address] [place] [id number] Sep, Renal insufficiency N28.9 an d Unspecified kidney failure N19 [facility] [address] [facility] [id number] [address] [place] [id number] Sep, Arthritis M19.90 [facility] [address] [facility] [id number] [address] [place] [phone] Aug, Exercise counseling Z71.82 [facility] [address] [facility] [id number] [address] [place] [phone] Aug, [facility] [address] [facility] [id number] [address] [place] [id number] Jul, Labyrinthitis of left ear H8 3.02 [facility] [address] [facility] [id number] [address] [place] [id number] Jul, Labyrinthitis of left ear H8 3.02 [facility] [address] [facility] [id number] [address] [place] [id number] Jul, Exercise counseling Z71.82 [facility] [address] [facility] [id number] [address] [place] [id number] Jul, [facility] [address] [facility] [id number] [address] [place] [id number] 14 Jul, 2018 Arthritis M19.90 [place] [address] [facility] [id number] [address] [place] [id number] 13 Jul, 2018 Encounter for Medicare annua l wellness exam Z00.00 ; Chronic kidney disease, stage 4 (severe) N18.4 ; Body mass index (BMI) of 40.0-44.9 in adult Z68.41 ; Hyperparathyroidism E21.3 and BMI 40.0-44.9, adult Z68.41 [place] [address] [facility] [id number] [address] [place] [id number] 13 Jul, 2018 Encounter for Medicare annua l wellness exam Z00.00 ; Chronic kidney disease, stage 4 (severe) N18.4 ; Hyperparathyroidism E21.3 ; Body mass index (BMI) of 40.0-44.9 in adult Z68.41 and Encounter for immunization Z23 [place] [address] [place] [id number] [address] [place] [id number] 11 Jul, 2018 Tail bone pain M53.3 [place] [address] [place] [id number] [address] [place] [id number] 29 Jun, 2018 Exercise counseling Z71.82 [place] [address] [place] [id number] [place] [phone] Jun, Labyrinthitis of left ear H8 3.02 [place] [address] [place] [id number] [address] [place] [phone] Jun, Tail bone pain M53.3 ; Irrit able bowel syndrome with both constipation and diarrhea K58.2 and Dysfunction of left eustachian tube H69.82 [place] [address] [facility] [id number] [address] [place] [id number] Jun, Exercise counseling Z71.82 [place] [address] [place] [id number] [address] [place] [id number] Jun, Arthritis M19.90 [place] [address] [place] [id number] [address] [place] [id number] Jun, Irritable bowel syndrome wit h both constipation and diarrhea K58.2 ; Tail bone pain M53.3 and Dysfunction of left eustachian tube H69.82 [facility] [address] [id number] [address] [place] [id number] Jun, Exercise counseling Z71.82 [facility] [address] [id number] [address] [place] [id number] Jun, Exercise counseling Z71.82 [facility] [address] [id number] [address] [place] [id number] Jun, Labyrinthitis of left ear H8 3.02 [place] [address] [id number] [address] [place] [phone] May, Exercise counseling Z71.82 [place] [address] [id number] [address] [place] [id number] May, Arthritis M19.90 [facility] [address] [id number] [address] [place] [id number] May, Exercise counseling Z71.82 [facility] [address] [id number] [address] [place] [id number] May, Exercise counseling Z71.82 [facility] [address] [id number] [address] [place] [id number] May, Labyrinthitis of left ear H8 3.02 [facility] [address] [id number] [address] [place] [id number] May, Exercise counseling Z71.82 [facility] [address] [id number] [address] [place] [id number] Apr, Arthritis M19.90 [facility] [address] [id number] [address] [place] [id number] Apr, Exercise counseling Z71.82 [facility] [address] [id number] [address] [place] [phone] Apr, Exercise counseling Z71.82 [place] [address] [id number] Apr, Primary osteoarthritis of le ft knee M17.12 [place] [address] [id number] Apr, Labyrinthitis of left ear H8 3.02 [place] [address] [phone] Mar, Arthritis M19.90 [place] [address] [id number] Mar, [place] [address] [id number] Mar, Chronic kidney disease, stag e 4 (severe) N18.4 [place] [address] [id number] Mar, Chronic kidney disease, stag e 4 (severe) N18.4 [place] [address] [id number] Mar, Labyrinthitis of left ear H8 3.02 [place] [address] [id number] 05 Mar, 2018 Chronic kidney disease, stag e 4 (severe) N18.4 ; Knee pain, left anterior M25.562 ; Deficiency of other specified B group vitamins E53.8 and Encounter for immunization Z23 [place] [address] [place] [id number] [address] [place] [id number] Mar, Arthritis M19.90 [place] [address] [id number] Feb, Labyrinthitis of left ear H8 3.02 [place] [address] [id number] 06 Feb, 2018 Arthritis M19.90 [place] [address] [place] [id number] [address] [place] [id number] Jan, Labyrinthitis of left ear H8 3.02 [facility] [address] [facility] [id number] [address] [place] [id number] Jan, Arthritis M19.90 [facility] [address] [facility] [id number] [address] [place] [id number] Dec, Labyrinthitis of left ear H8 3.02 [facility] [address] [facility] [id number] [address] [place] [id number] Nov, Arthritis M19.90 [place] [address] [place] [id number] [address] [place] [id number] Nov, Labyrinthitis of left ear H8 3.02 [place] [address] [place] [id number] [address] [place] [id number] Nov, BMI 40.0-44.9, adult Z68.41 ; Chronic kidney disease, stage 4 (severe) N18.4 and Acute right-sided thoracic back pain M54.6 [place] [address] [place] [id number] [address] [place] [id number] October, Labyrinthitis of left ear H8 3.02 and Arthritis M19.90 [place] [address] [place] [id number] [address] [place] [id number] Sep, BPV (benign positional verti go), bilateral H81.13 ; Dysfunction of left eustachian tube H69.82 and BMI 40.0-44.9, adult Z68.41 [place] [address] [facility] [id number] [address] [place] [id number] Sep, Labyrinthitis of left ear H8 3.02 and Arthritis M19.90 [place] [address] [facility] [id number] [address] [place] [id number] Sep, [place] [address] [place] [id number] [address] [place] [id number] Sep, [facility] [address] [id number] [address] [place] [id number] Sep, Chronic kidney disease, stag e 4 (severe) N18.4 [facility] [address] [id number] [address] [place] [id number] Sep, Chronic kidney disease, stag e 4 (severe) N18.4 [facility] [address] [id number] [address] [place] [id number] Aug, Labyrinthitis of left ear H8 3.02 and Arthritis M19.90 [facility] [address] [id number] [address] [place] [phone] Aug, [facility] [address] [id number] [address] [place] [id number] Jul, [facility] [address] [facility] [id number] [address] [place] [id number] Jul, Arthritis M19.90 and Labyrin thitis of left ear H83.02 [facility] [address] [id number] [address] [place] [id number] Jul, [facility] [address] [id number] [address] [place] [id number] Jun, [facility] [address] [id number] [address] [place] [id number] Jun, Arthritis M19.90 and Labyrin thitis of left ear H83.02 [facility] [address] [facility] [id number] [address] [place] [id number] Jun, Pre-op evaluation Z01.818 ; BMI 40.0-44.9, adult Z68.41 and Encounter for immunization Z23 [facility] [address] [facility] [id number] [address] [place] [id number] May, Arthritis M19.90 and Labyrin thitis of left ear H83.02 [facility] [address] [place] [id number] [address] [place] [id number] Apr, Labyrinthitis of left ear H8 3.02 [place] [address] [place] [id number] [address] [place] [id number] Apr, Arthritis M19.90 and Labyrin thitis of left ear H83.02 [place] [address] [place] [id number] [address] [place] [id number] Mar, Arthritis M19.90 and Labyrin thitis of left ear H83.02 [place] [address] [place] [id number] [address] [place] [id number] Mar, Chronic kidney disease, stag e 4 (severe) N18.4 [place] [address] [place] [id number] [address] [place] [id number] Feb, Arthritis M19.90 and Labyrin thitis of left ear H83.02 [place] [address] [place] [id number] [place] [phone] Jan, Labyrinthitis of left ear H8 3.02 and Deficiency of other specified B group vitamins E53.8 [place] [address] [place] [id number] [address] [place] [id number] Dec, Arthritis M19.90 [place] [address] [place] [id number] [address] [place] [id number] Dec, BPV (benign positional verti go), bilateral H81.13 [place] [address] [place] [id number] [address] [place] [phone] Dec, [place] [address] [place] [id number] [address] [place] [phone] Dec, [place] [address] [place] [id number] [address] [place] [phone] Dec, [place] [address] [place] [id number] [address] [place] [id number] Nov, Arthritis M19.90 and Deficie ncy of other specified B group vitamins E53.8 [facility] [address] [id number] [address] [place] [id number] Nov, Arthritis M19.90 [facility] [address] [id number] [address] [place] [id number] Nov, Hyperparathyroidism E21.3 [facility] [address] [facility] [id number] [address] [place] [id number] October, [facility] [address] [id number] [address] [place] [id number] October, Hyperparathyroidism E21.3 [facility] [address] [facility] [id number] [address] [place] [phone] October, [facility] [address] [facility] [id number] [address] [place] [id number] October, Renal insufficiency N28.9 an d Hyperparathyroidism E21.3 [facility] [address] [facility] [id number] [address] [place] [phone] October, [facility] [address] [facility] [id number] [address] [place] [id number] October, Renal insufficiency N28.9 an d Hyperparathyroidism E21.3 [facility] [address] [facility] [id number] [address] [place] [id number] October, Arthritis M19.90 [facility] [address] [facility] [id number] [address] [place] [id number] Sep, [facility] [address] [facility] [id number] [address] [place] [phone] Sep, Lumbar neuritis M54.16 ; Tho racic abscess J86.9 and Deficiency of other specified B group vitamins E53.8 [facility] [address] [id number] [address] [place] [id number] Sep, [facility] [address] [facility] [id number] [address] [place] [id number] Aug, Arthritis M19.90 [facility] [address] [facility] [id number] [address] [place] [phone] Aug, Hyperparathyroidism E21.3 [facility] [address] [facility] [id number] [address] [place] [id number] Aug, Hyperparathyroidism E21.3 [facility] [address] [facility] [id number] [address] [place] [id number] Aug, Arthritis M19.90 [facility] [address] [facility] [id number] [address] [place] [id number] Jul, Mass of throat R22.1 [facility] [address] [place] [id number] [address] [place] [id number] Jul, [facility] [address] [id number] Jul, Arthritis M19.90 [facility] [address] [place] [id number] [address] [place] [phone] Jun, Arthritis M19.90 [facility] [address] [place] [id number] [address] [place] [phone] Jun, [facility] [id number] [place] [phone] Jun, Renal insufficiency N28.9 an d 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 [facility] [address] [facility] [id number] [address] [place] [id number] 05 Jun, 2016 Medicare welcome exam Z00.00 ; Encounter for immunization Z23 ; Arthritis M19.90 ; Medicare annual wellness visit, initial Z00.00 ; Medicare annual wellness visit, subsequent Z00.00 and Deficiency of other specified B group vitamins E53.8 [facility] [address] [facility] [id number] [address] [place] [id number] May, Renal insufficiency N28.9 an d 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 [facility] [address] [facility] [id number] [address] [place] [id number] 19 May, 2016 Renal insufficiency N28.9 [facility] [address] [facility] [id number] [address] [place] [id number] 16 May, 2016 Renal insufficiency N28.9 [facility] [address] [facility] [id number] [address] [place] [id number] 14 May, 2016 [facility] [address] [facility] [id number] [address] [place] [phone] 16 Apr, 2016 [facility] [address] [facility] [id number] [address] [place] [id number] 16 Apr, 2016 [facility] [address] [facility] [id number] [address] [place] [id number] 14 Apr, 2016 Mass of throat R22.1 [facility] [address] [facility] [id number] [address] [place] [id number] 10 Apr, 2016 [facility] [address] [facility] [id number] [address] [place] [id number] 10 Apr, 2016 Mass of throat R22.1 [facility] [address] [facility] [id number] [address] [place] [id number] 04 Apr, 2016 Mass of throat R22.1 [facility] [address] [facility] [id number] [address] [place] [id number] 31 Mar, 2016 [facility] [address] [facility] [id number] [address] [place] [phone] Mar, [facility] [address] [facility] [id number] [address] [place] [id number] Mar, [facility] [address] [facility] [id number] [address] [place] [id number] 24 Mar, 2016 Parathyroid abnormality E21. 5 and Encounter for immunization Z23 [facility] [address] [facility] [id number] [address] [place] [phone] 17 Mar, 2016 [facility] [address] [facility] [id number] [address] [place] [id number] Mar, [facility] [address] [id number] [address] [place] [id number] 21 Feb, 2016 Renal insufficiency N28.9 an d Hyperparathyroidism E21.3 [facility] [address] [id number] [address] [place] [id number] 19 Feb, 2016 [facility] [address] [id number] [address] [place] [id number] 15 Feb, 2016 Renal insufficiency N28.9 an d Hyperparathyroidism E21.3 [facility] [address] [id number] [address] [place] [id number] 14 Feb, 2016 [facility] [address] [id number] [address] [place] [id number] 12 Feb, 2016 [facility] [address] [facility] [id number] [address] [place] [phone] Feb, [facility] [address] [facility] [id number] [address] [place] [id number] Jan, [facility] [address] [facility] [id number] [address] [place] [phone] Jan, Arthritis M19.90 ; Lumbago w ith sciatica, right side M54.41 and Other chronic pain G89.29 [facility] [address] [facility] [id number] [address] [place] [id number] Jan, [facility] [address] [facility] [id number] [address] [place] [id number] Dec, Arthritis M19.90 ; Lumbago w ith sciatica, right side M54.41 and Other chronic pain G89.29 [facility] [address] [facility] [id number] [address] [place] [id number] Nov, Deficiency of other specifie d B group vitamins E53.8 ; Primary insomnia F51.01 ; Mood disorder F39 and Lumbago with sciatica, right side M54.41 [facility] [address] [facility] [id number] [address] [place] [id number] Nov, Hyperparathyroidism E21.3 [facility] [address] [facility] [id number] [address] [place] [id number] Nov, Unspecified kidney failure N 19 and Hyperparathyroidism E21.3 [facility] [address] [facility] [id number] [address] [place] [id number] October, Hyperparathyroidism E21.3 [facility] [address] [phone] October, [facility] [address] [id number] October, Hyperparathyroidism E21.3 [facility] [address] [id number] October, Hyperparathyroidism E21.3 [facility] [address] [id number] Sep, Hyperparathyroidism E21.3 ; Hypercholesterolemia E78.0 and Arthritis M19.90 [facility] [address] [id number] Aug, [facility] [address] [id number] Aug, Deficiency of other specifie d B group vitamins E53.8 [facility] [address] [place] [id number] [address] [place] [id number] Aug, [facility] [address] [id number] Jul, Urinary frequency R35.0 [facility] [address] [id number] Jul, Urinary frequency R35.0 [facility] [address] [place] [id number] [address] [place] [id number] Jul, [facility] [address] [id number] Jul, [facility] [address] [id number] [address] [place] [id number] Jun, Pain in left knee M25.562 [facility] [address] [id number] [address] [place] [id number] Jun, [facility] [address] [id number] [address] [place] [id number] May, Swelling of left knee joint M25.462 [facility] [address] [id number] [address] [place] [id number] May, [facility] [address] [id number] [address] [place] [id number] May, [facility] [address] [facility] [id number] [address] [place] [phone] May, [facility] [address] [facility] [id number] [address] [place] [id number] Apr, Renal insufficiency N28.9 an d Chronic kidney disease, stage 4 (severe) N18.4 [facility] [address] [facility] [id number] [address] [place] [id number] Apr, Unspecified kidney failure N 19 [facility] [address] [facility] [id number] [address] [place] [id number] Apr, Unspecified kidney failure N 19 [facility] [address] [facility] [id number] [address] [place] [id number] Apr, [facility] [address] [facility] [id number] [address] [place] [id number] Apr, Hyperparathyroidism, unspeci fied 252.00 [facility] [address] [facility] [id number] [address] [place] [id number] Apr, [facility] [address] [facility] [id number] [address] [place] [phone] Mar, [facility] [address] [facility] [id number] [address] [place] [phone] Mar, [facility] [address] [id number] [address] [place] [id number] Mar, Hyperparathyroidism, unspeci fied 252.00 [facility] [address] [id number] [address] [place] [id number] Feb, [facility] [address] [facility] [id number] [address] [place] [phone] Feb, Otalgia 388.70 [facility] [address] [facility] [id number] [address] [place] [phone] Feb, [facility] [address] [facility] [id number] [address] [place] [phone] Feb, [facility] [address] [facility] [id number] [address] [place] [phone] Jan, [facility] [address] [facility] [id number] [address] [place] [id number] Jan, Hyperparathyroidism, unspeci fied 252.00 [facility] [address] [id number] [address] [place] [phone] Jan, [facility] [address] [facility] [id number] [address] [place] [id number] Jan, Other B-complex deficiencies 266.2 and Hyperparathyroidism, unspecified 252.00 [facility] [address] [facility] [id number] [address] [place] [phone] Jan, [facility] [address] [facility] [id number] [address] [place] [phone] Jan, [facility] [address] [facility] [id number] [address] [place] [phone] Jan, [facility] [address] [facility] [id number] [address] [place] [phone] Dec, [facility] [address] [facility] [id number] [address] [place] [id number] Dec, [facility] [address] [id number] [address] [place] [phone] Dec, [facility] [address] [id number] [address] [place] [phone] Nov, Routine check-up V70.0 and P re-op exam V72.84 [facility] [address] [id number] [address] [place] [phone] Nov, [facility] [address] [id number] [address] [place] [id number] Nov, [facility] [address] [id number] [address] [place] [id number] October, [facility] [address] [id number] [address] [place] [id number] October, Other B-complex deficiencies 266.2 [facility] [address] [id number] [address] [place] [id number] October, [facility] [address] [id number] [address] [place] [id number] Sep, [facility] [address] [id number] [address] [place] [phone] Sep, [facility] [address] [id number] [address] [place] [phone] Aug, [facility] [address] [id number] [address] [place] [phone] Aug, [facility] [address] [id number] [address] [place] [phone] Aug, [facility] [address] [id number] [address] [place] [id number] 17 Aug, 2014 [facility] [address] [id number] [address] [place] [phone] Aug, [facility] [address] [id number] [address] [place] [phone] Aug, [facility] [address] [id number] [address] [place] [address], [place] [address] Jul, 2014 [facility] [address] [id number] [address] [place] [address], [place] [address] Jul, 2014 [facility] [address] [id number] [address] [place] [address], [place] [address] Jul, 2014 [facility] [address] [id number] [address] [place] [address], [place] [address] Jul, 2014 [facility] [address] [id number] [address] [place] [address], [place] [address] Jul, 2014 [facility] [address] [id number] [address] [place] [address], [place] [address] Jul, 2014 [facility] [address] [id number] [address] [place] [address], [place] [address] Jul, 2014 [facility] [address] [id number] [address] [place] [address], [place] [address] Jul, 2014 [facility] [address] [id number] [address] [place] [address], [place] [address] Jul, 2014 [facility] [address] [id number] [address] [place] [address], [place] [address] Jul, 2014 [facility] [address] [id number] [address] [place] [address], [place] [address] Jul, 2014 [facility] [address] [id number] [address] [place] [address], [place] [address] Jul, 2014 [facility] [address] [id number] [address] [place] [address], [place] [address] Jul, 2014 [facility] [address] [id number] [address] [place] [address], [place] [address] Jul, 2014 [facility] [address] [id number] [address] [place] [address], [place] [address] Jun, [facility] [address] [id number] [address] [place] [address], [place] [address] Jun, [facility] [address] [id number] [address] [place] [address], [place] [address] Jun, [facility] [address] [id number] [address] [place] [address], [place] [address] Jun, [facility] [address] [id number] [address] [place] [address], [place] [address] Jun, [facility] [address] [id number] [address] [place] [address], [place] [address] Jun, [facility] [address] [id number] [address] [place] [address], [place] [address] Jun, [facility] [address] [id number] [address] [place] [address], [place] [address] Jun, [facility] [address] [id number] [address] [place] [address], [place] [address] Jun, [facility] [address] [id number] [address] [place] [address], [place] [address] Jun, [facility] [address] [id number] [address] [place] [address], [place] [address] Jun, [facility] [address] [id number] [address] [place] [address], [place] [address] Jun, [facility] [address] [id number] [address] [place] [id number] Jun, [facility] [address] [id number] [address] [place] [address], [place] [address] Jun, [facility] [address] [id number] [address] [place] [address], [place] [address] May, [facility] [address] [id number] [address] [place] [address], [place] [address] May, [facility] [address] [id number] [address] [place] [id number] May, [facility] [address] [id number] [address] [place] [address], [place] [address] May, [facility] [address] [id number] [address] [place] [address], [place] [address] Apr, [facility] [address] [id number] [address] [place] [address], [place] [address] Apr, [facility] [address] [id number] [address] [place] [address], [place] [address] Apr, [facility] [address] [id number] [address] [place] [address], [place] [address] Apr, [facility] [address] [id number] [address] [place] [address], [place] [address] Apr, [facility] [address] [id number] [address] [place] [address], [place] [address] Apr, [facility] [address] [id number] [address] [place] [address], [place] [address] Mar, [facility] [address] [id number] [address] [place] [address], [place] [address] Mar, [facility] [address] [id number] [address] [place] [address], [place] [address] Mar, [facility] [address] [id number] [address] [place] [address], [place] [address] Mar, [facility] [address] [id number] [address] [place] [id number] 15 Mar, 2014 [facility] [address] [id number] [address] [place] [address], [place] [address] 15 Mar, 2014 [facility] [address] [id number] [address] [place] [id number] Mar, [facility] [address] [id number] [address] [place] [id number] Mar, [facility] [address] [id number] [address] [place] [address], [place] [address] 07 Mar, 2013 [facility] [address] [id number] [address] [place] [address], [place] [address] 07 Mar, 2013 [facility] [address] [id number] [address] [place] [address], [place] [address] 07 Mar, 2013 [facility] [address] [id number] [address] [place] [address], [place] [address] 07 Mar, 2013 [facility] [address] [id number] [address] [place] [address], [place] [address] 06 Mar, 2013 [facility] [address] [id number] [address] [place] [address], [place] [address] 26 Feb, 2013 [facility] [address] [id number] [address] [place] [address], [place] [address] 26 Feb, 2013 [facility] [address] [id number] [address] [place] [address], [place] [address] 23 Feb, 2013 [facility] [address] [id number] [address] [place] [address], [place] [address] 23 Feb, 2013 [facility] [address] [id number] [address] [place] [address], [place] [address] 19 Feb, 2013 [facility] [address] [id number] [address] [place] [address], [place] [address] 19 Feb, 2013 [facility] [address] [id number] [address] [place] [address], [place] [address] 13 Feb, 2013 [facility] [address] [id number] [address] [place] [address], [place] [address] 13 Feb, 2013 [facility] [address] [id number] [address] [place] [address], [place] [address] 12 Feb, 2013 [facility] [address] [id number] [address] [place] [address], [place] [address] 12 Feb, 2013 [facility] [address] [id number] [address] [place] [address], [place] [address] Jan, [facility] [address] [id number] [facility] [place] [address] Jan, [facility] [address] [id number] [facility] [place] [address] Dec, [facility] [address] [id number] [facility] [place] [address] Dec, [facility] [address] [id number] [address] [place] [address], [place] [address] Dec, [facility] [address] [id number] [address] [place] [address], [place] [address] Dec, [facility] [address] [id number] [address] [place] [address], [place] [address] Dec, [facility] [address] [id number] [address] [place] [address], [place] [address] Dec, [facility] [address] [id number] [address] [place] [address], [place] [address] Nov, [facility] [address] [id number] [address] [place] [address], [place] [address] Nov, [facility] [address] [id number] [address] [place] [address], [place] [address] Nov, [facility] [address] [id number] [address] [place] [address], [place] [address] Nov, [facility] [address] [id number] [address] [place] [address], [place] [address] October, [facility] [address] [id number] [address] [place] [address], [place] [address] October, [facility] [address] [id number] [address] [place] [address], [place] [address] October, [facility] [address] [id number] [address] [place] [address], [place] [address] October, [facility] [address] [id number] [address] [place] [address], [place] [address] October, [facility] [address] [id number] [address] [place] [address], [place] [address] October, [facility] [address] [id number] [address] [place] [address], [place] [address] October, [facility] [address] [id number] [address] [place] [address], [place] [address] October, [facility] [address] [id number] [address] [place] [address], [place] [address] October, [facility] [address] [id number] [address] [place] [address], [place] [address] October, [facility] [address] [id number] [address] [place] [address], [place] [address] October, [facility] [address] [id number] [address] [place] [address], [place] [address] October, [facility] [address] [id number] [address] [place] [address], [place] [address] October, [facility] [address] [id number] [address] [place] [address], [place] [address] October, [facility] [address] [id number] [address] [place] [address], [place] [address] October, [facility] [address] [id number] [address] [place] [address], [place] [address] October, [facility] [address] [id number] [address] [place] [address], [place] [address] Sep, [facility] [address] [id number] [address] [place] [address], [place] [address] Sep, [facility] [address] [id number] [address] [place] [address], [place] [address] Sep, [facility] [address] [id number] [address] [place] [address], [place] [address] Sep, [facility] [address] [id number] [address] [place] [address], [place] [address] Sep, [facility] [address] [id number] [address] [place] [address], [place] [address] Sep, [facility] [address] [id number] [address] [place] [address], [place] [address] Aug, [facility] [address] [id number] [address] [place] [address], [place] [address] Aug, [facility] [address] [id number] [address] [place] [address], [place] [address] Aug, [facility] [address] [id number] [address] [place] [address], [place] [address] Aug, [facility] [address] [id number] [address] [place] [address], [place] [address] Aug, [facility] [address] [id number] [address] [place] [address], [place] [address] Aug, [facility] [address] [id number] [address] [place] [address], [place] [address] Jul, [facility] [address] [id number] [address] [place] [address], [place] [address] Jul, [facility] [address] [id number] [address] [place] [address], [place] [address] Jul, [facility] [address] [id number] [address] [place] [address], [place] [address] Jul, [facility] [address] [id number] [address] [place] [address], [place] [address] Jun, [facility] [address] [id number] [address] [place] [address], [place] [address] Jun, [facility] [address] [id number] [address] [place] [address], [place] [address] May, [facility] [address] [id number] [address] [place] [address] 11 May, 2013 [facility] [address] [id number] [address] [place] [address], [place] [address] 10 May, 2013 [facility] [address] [id number] [address] [place] [address] May, [facility] [address] [id number] [address] [place] [address] May, [facility] [address] [id number] [address] [place] [address] Apr, [facility] [address] [id number] [address] [place] [address] Apr, [facility] [address] [id number] [address] [place] [address] Apr, [facility] [address] [id number] [address] [place] [address] Apr, [facility] [address] [id number] [address] [place] [address] Apr, [facility] [address] [id number] [address] [place] [address] 04 Apr, 2013 [facility] [address] [id number] [address] [place] [address] 15 Mar, 2013 [facility] [address] [id number] [address] [place] [id number] 15 Mar, 2013 [facility] [address] [id number] [address] [place] [address] 14 Mar, 2013 [facility] [address] [id number] [address] [place] [id number] 14 Mar, 2013 [facility] [address] [id number] [address] [place] [id number] 11 Mar, 2013 [facility] [address] [id number] [address] [place] [id number] 11 Mar, 2013 [facility] [address] [id number] [facility] [place] [address] Feb, [facility] [address] [id number] [address] [place] [address], [place] [address] Feb, [facility] [address] [id number] [address] [place] [address], [place] [address] Feb, [facility] [address] [id number] [address] [place] [address], [place] [address] Jan, [facility] [address] [id number] [address] [place] [address], [place] [address] Jan, [facility] [address] [id number] [address] [place] [address], [place] [address] Jan, [facility] [address] [id number] [address] [place] [address], [place] [address] Jan, [facility] [address] [id number] [address] [place] [address], [place] [address] Jan, [facility] [address] [id number] [address] [place] [address], [place] [address] Jan, [facility] [address] [id number] [address] [place] [address], [place] [address] Dec, [facility] [address] [id number] [address] [place] [address], [place] [address] Dec, [facility] [address] [id number] [address] [place] [address], [place] [address] Dec, [facility] [address] [id number] [address] [place] [address], [place] [address] Dec, [facility] [address] [id number] [address] [place] [address], [place] [address] Dec, [facility] [address] [id number] [address] [place] [address], [place] [address] Dec, [facility] [address] [id number] [address] [place] [address], [place] [address] 26 Nov, 2012 [facility] [address] [id number] [address] [place] [address], [place] [address] 19 Nov, 2012 [facility] [address] [id number] [address] [place] [address], [place] [address] 18 Nov, 2012 [facility] [address] [id number] [address] [place] [address], [place] [address] 13 Nov, 2012 [facility] [address] [id number] [address] [place] [address], [place] [address] Nov, [facility] [address] [id number] [address] [place] [address], [place] [address] Nov, [facility] [address] [id number] [address] [place] [address], [place] [address] October, [facility] [address] [id number] [address] [place] [address], [place] [address] October, [facility] [address] [id number] [address] [place] [address], [place] [address] October, [facility] [address] [id number] [address] [place] [address], [place] [address] October, [facility] [address] [id number] [address] [place] [address], [place] [address] October, [facility] [address] [id number] [address] [place] [address], [place] [address] 30 Sep, 2012 [facility] [address] [id number] [address] [place] [address], [place] [address] Sep, [facility] [address] [id number] [address] [place] [address], [place] [address] Sep, [facility] [address] [id number] [address] [place] [address], [place] [address] 18 Sep, 2012 [facility] [address] [id number] [address] [place] [address], [place] [address] Sep, [facility] [address] [id number] [address] [place] [address], [place] [address] 26 Aug, 2012 [facility] [address] [id number] [address] [place] [address], [place] [address] 07 Aug, 2012 [facility] [address] [id number] [address] [place] [address], [place] [address] 04 Aug, 2012 [facility] [address] [id number] [address] [place] [address], [place] [address] 21 Jul, 2012 [facility] [address] [id number] [address] [place] [address], [place] [address] 20 Jul, 2012 [facility] [address] [id number] [address] [place] [address], [place] [address] 11 Jul, 2012 [facility] [address] [id number] [address] [place] [address], [place] [address] 08 Jul, 2012 [facility] [address] [id number] [address] [place] [address], [place] [address] 06 Jul, 2012 [facility] [address] [id number] [address] [place] [address], [place] [address] 05 Jul, 2012 [facility] [address] [id number] [address] [place] [address], [place] [address] 15 Jun, 2012 [facility] [address] [id number] [address] [place] [address], [place] [address] 16 Apr, 2012 [facility] [address] [id number] [address] [place] [address], [place] [address] 16 Apr, 2012 [facility] [address] [id number] [address] [place] [address], [place] [address] Apr, [facility] [address] [id number] [address] [place] [address], [place] [address] Apr, [facility] [address] [id number] [address] [place] [address], [place] [address] Mar, [facility] [address] [id number] [address] [place] [address], [place] [address] Mar, [facility] [address] [id number] [address] [place] [address], [place] [address] Mar, [facility] [address] [id number] [address] [place] [address], [place] [address] Mar, [facility] [address] [id number] [address] [place] [address], [place] [address] Mar, [facility] [address] [id number] [address] [place] [address], [place] [address] Feb, [facility] [address] [id number] [address] [place] [address], [place] [address] Jan, [facility] [address] [id number] [address] [place] [address], [place] [address] Jan, [facility] [address] [id number] [address] [place] [address], [place] [address] Jan, [facility] [address] [id number] [address] [place] [address], [place] [address] Dec, [facility] [address] [id number] [address] [place] [address], [place] [address] Nov, [facility] [address] [id number] [address] [place] [address], [place] [address] Nov, [facility] [address] [id number] [address] [place] [address], [place] [address] Nov, [facility] [address] [id number] [address] [place] [id number] Nov, [facility] [address] [id number] [address] [place] [address], [place] [address] Nov, [facility] [address] [id number] [address] [place] [address], [place] [address] October, [facility] [address] [id number] [address] [place] [address], [place] [address] October, [facility] [address] [id number] [address] [place] [id number] October, [facility] [address] [facility] [id number] [address] [place] [address] October, [facility] [address] [facility] [id number] [address] [place] [id number] October, IMMUNIZATIONS No Known Immunizations SOCIAL HISTORY [...]
--- OUTSIDE RECORDS SUMMARY | 2020-01-25 07:49 | XMS REPORT ---
Author Author Velma CORDERO Organization [facility] Address [address] [place] [address] Care Team Providers Care Hair Colorist Name Role Phone STEPHAN CORDERO Unavailable PROBLEMS Type Condition ICD9-CM Code [id number] Code Onset Dates Condition S tatus SNOMED Code Problem Primary insomnia F51.01 Active 397 2004 Problem Hypercholesteremia E78.0 Active 1 1146776 Problem Corns L84 Active 890691354 Problem Arthritis M19.90 Active 3134796 Problem Hyperparathyroidism E21.3 Active 02980665 Problem 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 Active 49740443 Problem 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 Active 27893775 Problem BPV (benign positional vertigo), bilateral H81.13 Active 598980205 Problem Unspecified kidney failure N19 Act chip 68216679 Problem Myalgia M79.1 Active 45928838 Problem 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 Active 228676800 Problem Mood disorder F39 Active 987782 05 Problem Chronic kidney disease, stage 4 (severe) N18.4 Active 444608047 Problem Primary osteoarthritis of left knee M17.12 Active [id number] Problem Irritable bowel syndrome with both constipation and diarrh ea K58.2 Active 52237846 Problem Body mass index (BMI) of 40.0-44.9 in adult Z68.41 Active 525129521 ALLERGIES No Information ENCOUNTERS Encounter Location Date Diagnosis [facility] [address] [facility] [id number] [address] [place] [address] Dec, Arthritis M19.90 [facility] [address] [facility] [id number] [address] [place] [phone] Nov, Inflammatory spondylopathy o f sacral region M46.98 [facility] [address] [facility] [id number] [address] [place] [phone] Nov, [facility] [address] [facility] [id number] [address] [place] [phone] Nov, Labyrinthitis of left ear H8 3.02 [facility] [address] [facility] [id number] [address] [place] [phone] 03 Nov, [address] [facility] [address] [facility] [id number] [address] [place] [phone] 15 Sep, [address] [facility] [address] [facility] [id number] [address] [place] [phone] Sep, Renal insufficiency N28.9 an d Unspecified kidney failure N19 [facility] [address] [facility] [id number] [address] [place] [phone] Sep, Renal insufficiency N28.9 an d Unspecified kidney failure N19 [facility] [address] [facility] [id number] [address] [place] [phone] Sep, Arthritis M19.90 [facility] [address] [facility] [id number] [address] [place] [phone] Aug, Exercise counseling Z71.82 [facility] [address] [facility] [id number] [address] [place] [phone] Aug, [facility] [address] [facility] [id number] [address] [place] [phone] Jul, Labyrinthitis of left ear H8 3.02 [facility] [address] [facility] [id number] [address] [place] [phone] Jul, Labyrinthitis of left ear H8 3.02 [facility] [address] [facility] [id number] [address] [place] [phone] Jul, Exercise counseling Z71.82 [facility] [address] [facility] [id number] [address] [place] [phone] Jul, [facility] [address] [facility] [id number] [address] [place] [id number] 14 Jul, 2018 Arthritis M19.90 [place] [id number] [facility] [id number] [address] [place] [address] 13 Jul, 2018 Encounter for Medicare annua l wellness exam Z00.00 ; Chronic kidney disease, stage 4 (severe) N18.4 ; Body mass index (BMI) of 40.0-44.9 in adult Z68.41 ; Hyperparathyroidism E21.3 and BMI 40.0-44.9, adult Z68.41 [place] [address] [facility] [id number] [address] [place] [phone] 13 Jul, 2018 Encounter for Medicare annua l wellness exam Z00.00 ; Chronic kidney disease, stage 4 (severe) N18.4 ; Hyperparathyroidism E21.3 ; Body mass index (BMI) of 40.0-44.9 in adult Z68.41 and Encounter for immunization Z23 [place] [address] [place] [id number] [address] [place] [phone] 11 Jul, 2018 Tail bone pain M53.3 [place] [address] [place] [id number] [address] [place] [phone] 29 Jun, 2018 Exercise counseling Z71.82 [place] [address] [place] [id number] [place] [phone] Jun, Labyrinthitis of left ear H8 3.02 [place] [address] [place] [id number] [address] [place] [phone] Jun, Tail bone pain M53.3 ; Irrit able bowel syndrome with both constipation and diarrhea K58.2 and Dysfunction of left eustachian tube H69.82 [place] [address] [facility] [id number] [address] [place] [phone] Jun, Exercise counseling Z71.82 [place] [address] [place] [id number] [address] [place] [phone] Jun, Arthritis M19.90 [place] [address] [place] [id number] [address] [place] [phone] Jun, Irritable bowel syndrome wit h both constipation and diarrhea K58.2 ; Tail bone pain M53.3 and Dysfunction of left eustachian tube H69.82 [facility] [address] [id number] [address] [place] [phone] Jun, Exercise counseling Z71.82 [facility] [address] [id number] [address] [place] [phone] Jun, Exercise counseling Z71.82 [facility] [address] [id number] [address] [place] [address] Jun, Labyrinthitis of left ear H8 3.02 [place] [address] [id number] [address] [place] [phone] May, Exercise counseling Z71.82 [place] [address] [id number] [address] [place] [phone] May, Arthritis M19.90 [facility] [address] [id number] [address] [place] [address] May, Exercise counseling Z71.82 [facility] [address] [id number] [address] [place] [phone] May, Exercise counseling Z71.82 [facility] [address] [id number] [address] [place] [phone] May, Labyrinthitis of left ear H8 3.02 [facility] [address] [id number] [address] [place] [id number] May, Exercise counseling Z71.82 [facility] [address] [id number] [address] [place] [phone] Apr, Arthritis M19.90 [facility] [address] [id number] [address] [place] [phone] Apr, Exercise counseling Z71.82 [facility] [address] [id number] [address] [place] [phone] Apr, Exercise counseling Z71.82 [place] [address] [address] Apr, Primary osteoarthritis of le ft knee M17.12 [place] [address] [address] Apr, Labyrinthitis of left ear H8 3.02 [place] [address] [address] Mar, Arthritis M19.90 [place] [address] [address] Mar, [place] [address] [phone] Mar, Chronic kidney disease, stag e 4 (severe) N18.4 [place] [address] [address] Mar, Chronic kidney disease, stag e 4 (severe) N18.4 [place] [address] [address] Mar, Labyrinthitis of left ear H8 3.02 [place] [address] [id number] 05 Mar, 2018 Chronic kidney disease, stag e 4 (severe) N18.4 ; Knee pain, left anterior M25.562 ; Deficiency of other specified B group vitamins E53.8 and Encounter for immunization Z23 [place] [address] [place] [id number] [address] [place] [address] Mar, Arthritis M19.90 [place] [address] [address] Feb, Labyrinthitis of left ear H8 3.02 [place] [address] [phone] 06 Feb, 2018 Arthritis M19.90 [place] [address] [place] [id number] [address] [place] [phone] Jan, Labyrinthitis of left ear H8 3.02 [facility] [address] [facility] [id number] [address] [place] [phone] Jan, Arthritis M19.90 [facility] [address] [facility] [id number] [address] [place] [address] Dec, Labyrinthitis of left ear H8 3.02 [facility] [address] [facility] [id number] [address] [place] [address] Nov, Arthritis M19.90 [place] [address] [place] [id number] [address] [place] [phone] Nov, Labyrinthitis of left ear H8 3.02 [place] [address] [place] [id number] [address] [place] [address] Nov, BMI 40.0-44.9, adult Z68.41 ; Chronic kidney disease, stage 4 (severe) N18.4 and Acute right-sided thoracic back pain M54.6 [place] [address] [place] [id number] [address] [place] [address] October, Labyrinthitis of left ear H8 3.02 and Arthritis M19.90 [place] [address] [place] [id number] [address] [place] [phone] Sep, BPV (benign positional verti go), bilateral H81.13 ; Dysfunction of left eustachian tube H69.82 and BMI 40.0-44.9, adult Z68.41 [place] [address] [facility] [id number] [address] [place] [phone] Sep, Labyrinthitis of left ear H8 3.02 and Arthritis M19.90 [place] [id number] [facility] [id number] [address] [place] [address] Sep, [place] [address] [place] [id number] [address] [place] [phone] Sep, [facility] [address] [id number] [address] [place] [phone] Sep, Chronic kidney disease, stag e 4 (severe) N18.4 [facility] [address] [id number] [address] [place] [phone] Sep, Chronic kidney disease, stag e 4 (severe) N18.4 [facility] [address] [id number] [address] [place] [phone] Aug, Labyrinthitis of left ear H8 3.[address] [facility] [address] [id number] [address] [place] [phone] Aug, [facility] [address] [id number] [address] [place] [phone] Jul, [facility] [address] [facility] [id number] [address] [place] [address] Jul, Arthritis M19.90 and Labyrin thitis of left ear H83.02 [facility] [address] [id number] [address] [place] [address] Jul, [facility] [address] [id number] [address] [place] [phone] Jun, [facility] [address] [id number] [address] [place] [phone] Jun, Arthritis M19.90 and Labyrin thitis of left ear H83.02 [facility] [address] [facility] [id number] [address] [place] [phone] Jun, Pre-op evaluation Z01.818 ; BMI 40.0-44.9, adult Z68.41 and Encounter for immunization Z23 [facility] [address] [facility] [id number] [address] [place] [address] May, Arthritis M19.90 and Labyrin thitis of left ear H83.02 [facility] [address] [place] [id number] [address] [place] [phone] Apr, Labyrinthitis of left ear H8 3.02 [place] [address] [place] [id number] [address] [place] [phone] Apr, Arthritis M19.90 and Labyrin thitis of left ear H83.02 [place] [address] [place] [id number] [address] [place] [address] Mar, Arthritis M19.90 and Labyrin thitis of left ear H83.02 [place] [address] [place] [id number] [address] [place] [address] Mar, Chronic kidney disease, stag e 4 (severe) N18.4 [place] [address] [place] [id number] [address] [place] [address] Feb, Arthritis M19.90 and Labyrin thitis of left ear H83.02 [place] [address] [place] [id number] [place] [phone] Jan, Labyrinthitis of left ear H8 3.02 and Deficiency of other specified B group vitamins E53.8 [place] [address] [place] [id number] [address] [place] [phone] Dec, Arthritis M19.90 [place] [address] [place] [id number] [address] [place] [phone] Dec, BPV (benign positional verti go), bilateral H81.13 [place] [address] [place] [id number] [address] [place] [phone] Dec, [place] [address] [place] [id number] [address] [place] [phone] Dec, [place] [address] [place] [id number] [address] [place] [phone] Dec, [place] [address] [place] [id number] [address] [place] [phone] Nov, Arthritis M19.90 and Deficie ncy of other specified B group vitamins E53.8 [facility] [address] [id number] [address] [place] [phone] Nov, Arthritis M19.90 [facility] [address] [id number] [address] [place] [address] Nov, Hyperparathyroidism E21.3 [facility] [address] [facility] [id number] [address] [place] [phone] October, [facility] [address] [id number] [address] [place] [phone] October, Hyperparathyroidism E21.3 [facility] [address] [facility] [id number] [address] [place] [address] October, [facility] [address] [facility] [id number] [address] [place] [address] October, Renal insufficiency N28.9 an d Hyperparathyroidism E21.3 [facility] [address] [facility] [id number] [address] [place] [phone] October, [facility] [address] [facility] [id number] [address] [place] [address] October, Renal insufficiency N28.9 an d Hyperparathyroidism E21.3 [facility] [address] [facility] [id number] [address] [place] [phone] October, Arthritis M19.90 [facility] [address] [facility] [id number] [address] [place] [address] Sep, [facility] [address] [facility] [id number] [address] [place] [address] Sep, Lumbar neuritis M54.16 ; Tho racic abscess J86.9 and Deficiency of other specified B group vitamins E53.8 [facility] [address] [id number] [address] [place] [phone] Sep, [facility] [address] [facility] [id number] [address] [place] [address] Aug, Arthritis M19.90 [facility] [address] [facility] [id number] [address] [place] [phone] Aug, Hyperparathyroidism E21.3 [facility] [address] [facility] [id number] [address] [place] [address] Aug, Hyperparathyroidism E21.3 [facility] [address] [facility] [id number] [address] [place] [address] Aug, Arthritis M19.90 [facility] [address] [facility] [id number] [address] [place] [phone] Jul, Mass of throat R22.1 [facility] [address] [place] [id number] [address] [place] [phone] Jul, [facility] [address] [address] Jul, Arthritis M19.90 [facility] [address] [place] [id number] [address] [place] [address] Jun, Arthritis M19.90 [facility] [address] [place] [id number] [address] [place] [address] Jun, [facility] [id number] [place] [phone] Jun, Renal insufficiency N28.9 an d 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 [facility] [address] [facility] [id number] [address] [place] [phone] 05 Jun, 2016 Medicare welcome exam Z00.00 ; Encounter for immunization Z23 ; Arthritis M19.90 ; Medicare annual wellness visit, initial Z00.00 ; Medicare annual wellness visit, subsequent Z00.00 and Deficiency of other specified B group vitamins E53.8 [facility] [address] [facility] [id number] [address] [place] [address] May, Renal insufficiency N28.9 an d 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 [facility] [address] [facility] [id number] [address] [place] [phone] 19 May, [address] [facility] [address] [facility] [id number] [address] [place] [id number] 16 May, [address] [facility] [address] [facility] [id number] [address] [place] [phone] [address] May, [address] [facility] [address] [facility] [id number] [address] [place] [phone] [address], [address] [facility] [address] [facility] [id number] [address] [place] [phone] [address], [address] [facility] [address] [facility] [id number] [address] [place] [phone] 14 Apr, 2016 Mass of throat R22.1 [facility] [address] [facility] [id number] [address] [place] [phone] [address], [address] [facility] [address] [facility] [id number] [address] [place] [phone] 10 Apr, 2016 Mass of throat R22.1 [facility] [address] [facility] [id number] [address] [place] [phone] 04 Apr, 2016 Mass of throat R22.1 [facility] [address] [facility] [id number] [address] [place] [phone] 31 Mar, 2016 [facility] [address] [facility] [id number] [address] [place] [phone] Mar, [facility] [address] [facility] [id number] [address] [place] [phone] Mar, [facility] [address] [facility] [id number] [address] [place] [phone] 24 Mar, 2016 Parathyroid abnormality E21. 5 and Encounter for immunization Z23 [facility] [address] [facility] [id number] [address] [place] [phone] 17 Mar, 2016 [facility] [address] [facility] [id number] [address] [place] [phone] Mar, [facility] [address] [id number] [address] [place] [phone] 21 Feb, 2016 Renal insufficiency N28.9 an d Hyperparathyroidism E21.3 [facility] [address] [id number] [address] [place] [phone] 19 Feb, 2016 [facility] [address] [id number] [address] [place] [id number] 15 Feb, 2016 Renal insufficiency N28.9 an d Hyperparathyroidism E21.3 [facility] [address] [id number] [address] [place] [phone] [address] Feb, 2016 [facility] [address] [id number] [address] [place] [phone] [address], [address] [facility] [address] [facility] [id number] [address] [place] [id number] Feb, [facility] [address] [facility] [id number] [address] [place] [id number] Jan, [facility] [address] [facility] [id number] [address] [place] [id number] Jan, Arthritis M19.90 ; Lumbago w ith sciatica, right side M54.41 and Other chronic pain G89.29 [facility] [address] [facility] [id number] [address] [place] [id number] Jan, [facility] [address] [facility] [id number] [address] [place] [phone] Dec, Arthritis M19.90 ; Lumbago w ith sciatica, right side M54.41 and Other chronic pain G89.29 [facility] [address] [facility] [id number] [address] [place] [id number] Nov, Deficiency of other specifie d B group vitamins E53.8 ; Primary insomnia F51.01 ; Mood disorder F39 and Lumbago with sciatica, right side M54.41 [facility] [address] [facility] [id number] [address] [place] [id number] Nov, Hyperparathyroidism E21.3 [facility] [address] [facility] [id number] [address] [place] [phone] Nov, Unspecified kidney failure N [address] [facility] [address] [facility] [id number] [address] [place] [id number] October, Hyperparathyroidism E21.3 [facility] [address] [id number] October, [facility] [address] [id number] October, Hyperparathyroidism E21.3 [facility] [address] [id number] October, Hyperparathyroidism E21.3 [facility] [address] [phone] Sep, Hyperparathyroidism E21.3 ; Hypercholesterolemia E78.[address] [facility] [address] [id number] Aug, [facility] [address] [id number] Aug, Deficiency of other specifie d B group vitamins E53.8 [facility] [address] [id number] [address] [place] [id number] Aug, [facility] [address] [id number] Jul, Urinary frequency R35.0 [facility] [address] [id number] Jul, Urinary frequency R35.0 [facility] [address] [id number] [address] [place] [id number] Jul, [facility] [address] [id number] Jul, [facility] [address] [id number] [address] [place] [address] Jun, Pain in left knee M25.562 [facility] [address] [id number] [address] [place] [id number] Jun, [facility] [address] [id number] [address] [place] [address] May, Swelling of left knee joint M25.462 [facility] [address] [id number] [address] [place] [id number] May, [facility] [address] [id number] [address] [place] [id number] May, [facility] [address] [facility] [id number] [address] [place] [id number] May, [facility] [address] [facility] [id number] [address] [place] [id number] Apr, Renal insufficiency N28.9 an d Chronic kidney disease, stage 4 (severe) N18.4 [facility] [address] [facility] [id number] [address] [place] [id number] Apr, Unspecified kidney failure N 19 [facility] [address] [facility] [id number] [address] [place] [id number] Apr, Unspecified kidney failure N 19 [facility] [address] [facility] [id number] [address] [place] [address] Apr, [facility] [address] [facility] [id number] [address] [place] [address] Apr, Hyperparathyroidism, unspeci fied 252.00 [facility] [address] [facility] [id number] [address] [place] [id number] Apr, [facility] [address] [facility] [id number] [address] [place] [id number] Mar, [facility] [address] [facility] [id number] [address] [place] [id number] Mar, [facility] [address] [id number] [address] [place] [id number] Mar, Hyperparathyroidism, unspeci fied 252.00 [facility] [address] [id number] [address] [place] [id number] Feb, [facility] [address] [facility] [id number] [address] [place] [id number] Feb, Otalgia 388.70 [facility] [address] [facility] [id number] [address] [place] [id number] Feb, [facility] [address] [facility] [id number] [address] [place] [id number] Feb, [facility] [address] [facility] [id number] [address] [place] [id number] Jan, [facility] [address] [facility] [id number] [address] [place] [id number] Jan, Hyperparathyroidism, unspeci fied 252.00 [facility] [address] [id number] [address] [place] [id number] Jan, [facility] [address] [facility] [id number] [address] [place] [id number] Jan, Other B-complex deficiencies 266.2 and Hyperparathyroidism, unspecified 252.00 [facility] [address] [facility] [id number] [address] [place] [phone] Jan, [facility] [address] [facility] [id number] [address] [place] [phone] Jan, [facility] [address] [facility] [id number] [address] [place] [phone] Jan, [facility] [address] [facility] [id number] [address] [place] [phone] Dec, [facility] [address] [facility] [id number] [address] [place] [phone] Dec, [facility] [address] [id number] [address] [place] [id number] Dec, [facility] [address] [id number] [address] [place] [id number] Nov, Routine check-up V70.0 and P re-op exam V72.84 [facility] [place] [address] [id number] [address] [place] [id number] Nov, [facility] [address] [id number] [address] [place] [id number] Nov, [facility] [address] [id number] [address] [place] [id number] October, [facility] [address] [id number] [address] [place] [id number] October, Other B-complex deficiencies 266.2 [facility] [address] [id number] [address] [place] [id number] October, [facility] [address] [id number] [address] [place] [id number] Sep, [facility] [address] [id number] [address] [place] [id number] Sep, [facility] [address] [id number] [address] [place] [id number] Aug, [facility] [address] [id number] [address] [place] [id number] Aug, [facility] [address] [id number] [address] [place] [id number] Aug, [facility] [address] [id number] [address] [place] [id number] 17 Aug, 2014 [facility] [address] [id number] [address] [place] [id number] Aug, [facility] [address] [id number] [address] [place] [id number] Aug, [facility] [address] [id number] [address] [place] [address], [place] [id number] Jul, 2014 [facility] [address] [id number] [address] [place] [address], [place] [id number] Jul, 2014 [facility] [address] [id number] [address] [place] [address], [place] [id number] Jul, 2014 [facility] [address] [id number] [address] [place] [address], [place] [id number] Jul, 2014 [facility] [address] [id number] [address] [place] [address], [place] [id number] Jul, 2014 [facility] [address] [id number] [address] [place] [address], [place] [id number] Jul, 2014 [facility] [address] [id number] [address] [place] [address], [place] [id number] Jul, 2014 [facility] [address] [id number] [address] [place] [address], [place] [id number] Jul, 2014 [facility] [address] [id number] [address] [place] [address], [place] [id number] Jul, 2014 [facility] [address] [id number] [address] [place] [address], [place] [id number] Jul, 2014 [facility] [address] [id number] [address] [place] [address], [place] [id number] Jul, 2014 [facility] [address] [id number] [address] [place] [address], [place] [id number] Jul, 2014 [facility] [address] [id number] [address] [place] [address], [place] [id number] Jul, 2014 [facility] [address] [id number] [address] [place] [address], [place] [id number] Jul, 2014 [facility] [address] [id number] [address] [place] [address], [place] [id number] Jun, [facility] [address] [id number] [address] [place] [address], [place] [id number] Jun, [facility] [address] [id number] [address] [place] [address], [place] [id number] Jun, [facility] [address] [id number] [address] [place] [address], [place] [id number] Jun, [facility] [address] [id number] [address] [place] [address], [place] [id number] Jun, [facility] [address] [id number] [address] [place] [address], [place] [id number] Jun, [facility] [address] [id number] [address] [place] [address], [place] [id number] Jun, [facility] [address] [id number] [address] [place] [address], [place] [id number] Jun, [facility] [address] [id number] [address] [place] [address], [place] [id number] Jun, [facility] [address] [id number] [address] [place] [address], [place] [id number] Jun, [facility] [address] [id number] [address] [place] [address], [place] [id number] Jun, [facility] [address] [id number] [address] [place] [address], [place] [id number] Jun, [facility] [address] [id number] [address] [place] [id number] Jun, [facility] [address] [id number] [address] [place] [address], [place] [id number] Jun, [facility] [address] [id number] [address] [place] [address], [place] [id number] May, [facility] [address] [id number] [address] [place] [address], [place] [id number] May, [facility] [address] [id number] [address] [place] [id number] May, [facility] [address] [id number] [address] [place] [address], [place] [address] May, [facility] [address] [id number] [address] [place] [address], [place] [id number] Apr, [facility] [address] [id number] [address] [place] [address], [place] [id number] Apr, [facility] [address] [id number] [address] [place] [address], [place] [address] Apr, [facility] [address] [id number] [address] [place] [address], [place] [id number] Apr, [facility] [address] [id number] [address] [place] [address], [place] [id number] Apr, [facility] [address] [id number] [address] [place] [address], [place] [address] Apr, [facility] [address] [id number] [address] [place] [address], [place] [id number] Mar, [facility] [address] [id number] [address] [place] [address], [place] [id number] Mar, [facility] [address] [id number] [address] [place] [address], [place] [id number] Mar, [facility] [address] [id number] [address] [place] [address], [place] [id number] Mar, [facility] [address] [id number] [address] [place] [id number] 15 Mar, 2014 [facility] [address] [id number] [address] [place] [address], [place] [id number] 15 Mar, 2014 [facility] [address] [id number] [address] [place] [id number] Mar, [facility] [address] [id number] [address] [place] [id number] Mar, [facility] [address] [id number] [address] [place] [address], [place] [id number] 07 Mar, 2013 [facility] [address] [id number] [address] [place] [address], [place] [id number] 07 Mar, 2013 [facility] [address] [id number] [address] [place] [address], [place] [id number] 07 Mar, 2013 [facility] [address] [id number] [address] [place] [address], [place] [id number] 07 Mar, 2013 [facility] [address] [id number] [address] [place] [address], [place] [id number] 06 Mar, 2013 [facility] [address] [id number] [address] [place] [address], [place] [id number] 26 Feb, 2013 [facility] [address] [id number] [address] [place] [address], [place] [id number] 26 Feb, 2013 [facility] [address] [id number] [address] [place] [address], [place] [id number] 23 Feb, 2013 [facility] [address] [id number] [address] [place] [address], [place] [id number] 23 Feb, 2013 [facility] [address] [id number] [address] [place] [address], [place] [id number] 19 Feb, 2013 [facility] [address] [id number] [address] [place] [address], [place] [id number] 19 Feb, 2013 [facility] [address] [id number] [address] [place] [address], [place] [id number] 13 Feb, 2013 [facility] [address] [id number] [address] [place] [address], [place] [id number] 13 Feb, 2013 [facility] [address] [id number] [address] [place] [address], [place] [id number] 12 Feb, 2013 [facility] [address] [id number] [address] [place] [address], [place] [id number] 12 Feb, 2013 [facility] [address] [id number] [address] [place] [address], [place] [id number] Jan, [facility] [address] [id number] [facility] [place] [address] Jan, [facility] [address] [id number] [facility] [place] [id number] Dec, [facility] [address] [id number] [facility] [place] [address] Dec, [facility] [address] [id number] [address] [place] [address], [place] [id number] Dec, [facility] [address] [id number] [address] [place] [address], [place] [id number] Dec, [facility] [address] [id number] [address] [place] [address], [place] [id number] Dec, [facility] [address] [id number] [address] [place] [address], [place] [id number] Dec, [facility] [address] [id number] [address] [place] [address], [place] [id number] Nov, [facility] [address] [id number] [address] [place] [address], [place] [id number] Nov, [facility] [address] [id number] [address] [place] [address], [place] [address] Nov, [facility] [address] [id number] [address] [place] [address], [place] [id number] Nov, [facility] [address] [id number] [address] [place] [address], [place] [address] October, [facility] [address] [id number] [address] [place] [address], [place] [address] October, [facility] [address] [id number] [address] [place] [address], [place] [id number] October, [facility] [address] [id number] [address] [place] [address], [place] [id number] October, [facility] [address] [id number] [address] [place] [address], [place] [id number] October, [facility] [address] [id number] [address] [place] [address], [place] [id number] October, [facility] [address] [id number] [address] [place] [address], [place] [id number] October, [facility] [address] [id number] [address] [place] [address], [place] [id number] October, [facility] [address] [id number] [address] [place] [address], [place] [id number] October, [facility] [address] [id number] [address] [place] [address], [place] [id number] October, [facility] [address] [id number] [address] [place] [address], [place] [id number] October, [facility] [address] [id number] [address] [place] [address], [place] [id number] October, [facility] [address] [id number] [address] [place] [address], [place] [address] October, [facility] [address] [id number] [address] [place] [address], [place] [address] October, [facility] [address] [id number] [address] [place] [address], [place] [address] October, [facility] [address] [id number] [address] [place] [address], [place] [address] October, [facility] [address] [id number] [address] [place] [address], [place] [address] Sep, [facility] [address] [id number] [address] [place] [address], [place] [address] Sep, [facility] [address] [id number] [address] [place] [address], [place] [id number] Sep, [facility] [address] [id number] [address] [place] [address], [place] [address] Sep, [facility] [address] [id number] [address] [place] [address], [place] [address] Sep, [facility] [address] [id number] [address] [place] [address], [place] [address] Sep, [facility] [address] [id number] [address] [place] [address], [place] [address] Aug, [facility] [address] [id number] [address] [place] [address], [place] [id number] Aug, [facility] [address] [id number] [address] [place] [address], [place] [address] Aug, [facility] [address] [id number] [address] [place] [address], [place] [id number] Aug, [facility] [address] [id number] [address] [place] [address], [place] [id number] Aug, [facility] [address] [id number] [address] [place] [address], [place] [id number] Aug, [facility] [address] [id number] [address] [place] [address], [place] [id number] Jul, [facility] [address] [id number] [address] [place] [address], [place] [id number] Jul, [facility] [address] [id number] [address] [place] [address], [place] [id number] Jul, [facility] [address] [id number] [address] [place] [address], [place] [id number] Jul, [facility] [address] [id number] [address] [place] [address], [place] [id number] Jun, [facility] [address] [id number] [address] [place] [address], [place] [id number] Jun, [facility] [address] [id number] [address] [place] [address], [place] [id number] May, [facility] [address] [id number] [address] [place] [id number] 11 May, 2013 [facility] [address] [id number] [address] [place] [address], [place] [id number] 10 May, 2013 [facility] [address] [id number] [address] [place] [id number] May, [facility] [address] [id number] [address] [place] [id number] May, [facility] [address] [id number] [address] [place] [id number] Apr, [facility] [address] [id number] [address] [place] [id number] Apr, [facility] [address] [id number] [address] [place] [id number] Apr, [facility] [address] [id number] [address] [place] [id number] Apr, [facility] [address] [id number] [address] [place] [id number] Apr, [facility] [address] [id number] [address] [place] [id number] 04 Apr, 2013 [facility] [address] [id number] [address] [place] [id number] 15 Mar, 2013 [facility] [address] [id number] [address] [place] [id number] 15 Mar, 2013 [facility] [address] [id number] [address] [place] [id number] 14 Mar, 2013 [facility] [address] [id number] [address] [place] [id number] 14 Mar, 2013 [facility] [address] [id number] [address] [place] [id number] 11 Mar, 2013 [facility] [address] [id number] [address] [place] [id number] 11 Mar, 2013 [facility] [address] [id number] [facility] [place] [id number] Feb, [facility] [address] [id number] [address] [place] [address], [place] [id number] Feb, [facility] [address] [id number] [address] [place] [address], [place] [id number] Feb, [facility] [address] [id number] [address] [place] [address], [place] [id number] Jan, [facility] [address] [id number] [address] [place] [address], [place] [id number] Jan, [facility] [address] [id number] [address] [place] [address], [place] [id number] Jan, [facility] [address] [id number] [address] [place] [address], [place] [id number] Jan, [facility] [address] [id number] [address] [place] [address], [place] [id number] Jan, [facility] [address] [id number] [address] [place] [address], [place] [id number] Jan, [facility] [address] [id number] [address] [place] [address], [place] [id number] Dec, [facility] [address] [id number] [address] [place] [address], [place] [id number] Dec, [facility] [address] [id number] [address] [place] [address], [place] [id number] Dec, [facility] [address] [id number] [address] [place] [address], [place] [id number] Dec, [facility] [address] [id number] [address] [place] [address], [place] [id number] Dec, [facility] [address] [id number] [address] [place] [address], [place] [id number] Dec, [facility] [address] [id number] [address] [place] [address], [place] [id number] 26 Nov, 2012 [facility] [address] [id number] [address] [place] [address], [place] [id number] 19 Nov, 2012 [facility] [address] [id number] [address] [place] [address], [place] [id number] 18 Nov, 2012 [facility] [address] [id number] [address] [place] [address], [place] [id number] 13 Nov, 2012 [facility] [address] [id number] [address] [place] [address], [place] [id number] Nov, [facility] [address] [id number] [address] [place] [address], [place] [id number] Nov, [facility] [address] [id number] [address] [place] [address], [place] [id number] October, [facility] [address] [id number] [address] [place] [address], [place] [id number] October, [facility] [address] [id number] [address] [place] [address], [place] [id number] October, [facility] [address] [id number] [address] [place] [address], [place] [id number] October, [facility] [address] [id number] [address] [place] [address], [place] [id number] October, [facility] [facility] [address] [id number] [address] [place] [address], [place] [id number] 30 Sep, 2012 [facility] [address] [id number] [address] [place] [address], [place] [id number] Sep, [facility] [address] [id number] [address] [place] [address], [place] [id number] Sep, [facility] [address] [id number] [address] [place] [address], [place] [id number] 18 Sep, 2012 [facility] [address] [id number] [address] [place] [address], [place] [id number] Sep, [facility] [address] [id number] [address] [place] [address], [place] [id number] 26 Aug, 2012 [facility] [address] [id number] [address] [place] [address], [place] [id number] 07 Aug, 2012 [facility] [address] [id number] [address] [place] [address], [place] [id number] 04 Aug, 2012 [facility] [address] [id number] [address] [place] [address], [place] [id number] 21 Jul, 2012 [facility] [address] [id number] [address] [place] [address], [place] [id number] 20 Jul, 2012 [facility] [address] [id number] [address] [place] [address], [place] [id number] 11 Jul, 2012 [facility] [address] [id number] [address] [place] [address], [place] [id number] 08 Jul, 2012 [facility] [address] [id number] [address] [place] [address], [place] [id number] 06 Jul, 2012 [facility] [address] [id number] [address] [place] [address], [place] [id number] 05 Jul, 2012 [facility] [address] [id number] [address] [place] [address], [place] [id number] 15 Jun, 2012 [facility] [address] [id number] [address] [place] [address], [place] [id number] 16 Apr, 2012 [facility] [address] [id number] [address] [place] [address], [place] [id number] 16 Apr, 2012 [facility] [address] [id number] [address] [place] [address], [place] [id number] Apr, [facility] [address] [id number] [address] [place] [address], [place] [id number] Apr, [facility] [address] [id number] [address] [place] [address], [place] [id number] Mar, [facility] [address] [id number] [address] [place] [address], [place] [id number] Mar, [facility] [address] [id number] [address] [place] [address], [place] [id number] Mar, [facility] [address] [id number] [address] [place] [address], [place] [id number] Mar, [facility] [address] [id number] [address] [place] [address], [place] [id number] Mar, [facility] [address] [id number] [address] [place] [address], [place] [id number] Feb, [facility] [address] [id number] [address] [place] [address], [place] [id number] Jan, [facility] [address] [id number] [address] [place] [address], [place] [id number] Jan, [facility] [address] [id number] [address] [place] [address], [place] [id number] Jan, [facility] [address] [id number] [address] [place] [address], [place] [id number] Dec, [facility] [address] [id number] [address] [place] [address], [place] [id number] Nov, [facility] [address] [id number] [address] [place] [address], [place] [id number] Nov, [facility] [address] [id number] [address] [place] [address], [place] [id number] Nov, [facility] [address] [id number] [address] [place] [id number] Nov, [facility] [address] [id number] [address] [place] [address], [place] [id number] Nov, [facility] [address] [id number] [address] [place] [address], [place] [id number] October, [facility] [address] [id number] [address] [place] [address], [place] [id number] October, [facility] [address] [id number] [address] [place] [id number] October, [facility] [address] [facility] [id number] [address] [place] [id number] October, [facility] [address] [facility] [id number] [address] [place] [id number] October, IMMUNIZATIONS No Known Immunizations SOCIAL HISTORY [...]
--- OUTSIDE RECORDS SUMMARY | 2020-01-25 07:49 | XMS REPORT ---
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 Manager Name Role Phone STEPHAN CORDERO Unavailable PROBLEMS Type Condition ICD9-CM Code [id number] Code Onset Dates Condition S tatus SNOMED Code Problem Primary insomnia F51.01 Active 397 2004 Problem Hypercholesteremia E78.0 Active 1 1713121 Problem Corns L84 Active 806578150 Problem Arthritis M19.90 Active 5776003 Problem Hyperparathyroidism E21.3 Active 38016226 Problem 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 Active 70546882 Problem 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 Active 47007349 Problem BPV (benign positional vertigo), bilateral H81.13 Active 130547263 Problem Unspecified kidney failure N19 Act chip 17476305 Problem Myalgia M79.1 Active 88271829 Problem 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 Active 092910120 Problem Mood disorder F39 Active 527525 05 Problem Chronic kidney disease, stage 4 (severe) N18.4 Active 511623071 Problem Primary osteoarthritis of left knee M17.12 Active 161401459087542 Problem Irritable bowel syndrome with both constipation and diarrh ea K58.2 Active 15524815 Problem Body mass index (BMI) of 40.0-44.9 in adult Z68.41 Active 070699785 ALLERGIES No Information ENCOUNTERS Encounter Location Date Diagnosis [facility] [address] [facility] [id number] [address] [place] [id number] Dec, Arthritis M19.90 [facility] [address] [facility] [id number] [address] [place] [id number] Nov, Inflammatory spondylopathy o f sacral region M46.98 [facility] [address] [facility] [id number] [address] [place] [id number] Nov, [facility] [address] [facility] [id number] [address] [place] [id number] Nov, Labyrinthitis of left ear H8 3.02 [facility] [address] [facility] [id number] [address] [place] [id number] 03 Nov, 2018 Arthritis M19.90 [facility] [address] [facility] [id number] [address] [place] [id number] 15 Sep, 2018 Arthritis M19.90 [facility] [address] [facility] [id number] [address] [place] [id number] Sep, Renal insufficiency N28.9 an d Unspecified kidney failure N19 [facility] [address] [facility] [id number] [address] [place] [id number] Sep, Renal insufficiency N28.9 an d Unspecified kidney failure N19 [facility] [address] [facility] [id number] [address] [place] [address] Sep, Arthritis M19.90 [facility] [address] [facility] [id number] [address] [place] [address] Aug, Exercise counseling Z71.82 [facility] [address] [facility] [id number] [address] [place] [id number] Aug, [facility] [address] [facility] [id number] [address] [place] [id number] Jul, Labyrinthitis of left ear H8 3.02 [facility] [address] [facility] [id number] [address] [place] [address] Jul, Labyrinthitis of left ear H8 3.02 [facility] [address] [facility] [id number] [address] [place] [address] Jul, Exercise counseling Z71.82 [facility] [address] [facility] [id number] [address] [place] [address] Jul, [facility] [address] [facility] [id number] [address] [place] [id number] 14 Jul, 2018 Arthritis M19.90 [place] [address] [facility] [id number] [address] [place] [id number] 13 Jul, 2018 Encounter for Medicare annua l wellness exam Z00.00 ; Chronic kidney disease, stage 4 (severe) N18.4 ; Body mass index (BMI) of 40.0-44.9 in adult Z68.41 ; Hyperparathyroidism E21.3 and BMI 40.0-44.9, adult Z68.41 [place] [address] [facility] [id number] [address] [place] [id number] 13 Jul, 2018 Encounter for Medicare annua l wellness exam Z00.00 ; Chronic kidney disease, stage 4 (severe) N18.4 ; Hyperparathyroidism E21.3 ; Body mass index (BMI) of 40.0-44.9 in adult Z68.41 and Encounter for immunization Z23 [place] [address] [place] [id number] [address] [place] [id number] 11 Jul, 2018 Tail bone pain M53.3 [place] [address] [place] [id number] [address] [place] [id number] 29 Jun, 2018 Exercise counseling Z71.82 [place] [address] [place] [id number] [place] [address] Jun, Labyrinthitis of left ear H8 3.02 [place] [address] [place] [id number] [address] [place] [id number] Jun, Tail bone pain M53.3 ; Irrit able bowel syndrome with both constipation and diarrhea K58.2 and Dysfunction of left eustachian tube H69.82 [place] [address] [facility] [id number] [address] [place] [address] Jun, Exercise counseling Z71.82 [place] [address] [place] [id number] [address] [place] [address] Jun, Arthritis M19.90 [place] [address] [place] [id number] [address] [place] [id number] Jun, Irritable bowel syndrome wit h both constipation and diarrhea K58.2 ; Tail bone pain M53.3 and Dysfunction of left eustachian tube H69.82 [facility] [address] [id number] [address] [place] [address] Jun, Exercise counseling Z71.82 [facility] [address] [id number] [address] [place] [address] Jun, Exercise counseling Z71.82 [facility] [address] [id number] [address] [place] [address] Jun, Labyrinthitis of left ear H8 3.02 [place] [address] [id number] [address] [place] [address] May, Exercise counseling Z71.82 [place] [address] [id number] [address] [place] [address] May, Arthritis M19.90 [facility] [address] [id number] [address] [place] [address] May, Exercise counseling Z71.82 [facility] [address] [id number] [address] [place] [address] May, Exercise counseling Z71.82 [facility] [address] [id number] [address] [place] [address] May, Labyrinthitis of left ear H8 3.02 [facility] [address] [id number] [address] [place] [address] May, Exercise counseling Z71.82 [facility] [address] [id number] [address] [place] [address] Apr, Arthritis M19.90 [facility] [address] [id number] [address] [place] [address] Apr, Exercise counseling Z71.82 [facility] [address] [id number] [address] [place] [address] Apr, Exercise counseling Z71.82 [place] [address] [id number] Apr, Primary osteoarthritis of le ft knee M17.12 [place] [address] [address] Apr, Labyrinthitis of left ear H8 3.02 [place] [address] [address] Mar, Arthritis M19.90 [place] [address] [address] Mar, [place] [address] [address] Mar, Chronic kidney disease, stag e 4 (severe) N18.4 [place] [address] [address] Mar, Chronic kidney disease, stag e 4 (severe) N18.4 [place] [address] [address] Mar, Labyrinthitis of left ear H8 3.02 [place] [address] [address] 05 Mar, 2018 Chronic kidney disease, stag e 4 (severe) N18.4 ; Knee pain, left anterior M25.562 ; Deficiency of other specified B group vitamins E53.8 and Encounter for immunization Z23 [place] [address] [place] [id number] [address] [place] [address] Mar, Arthritis M19.90 [place] [address] [address] Feb, Labyrinthitis of left ear H8 3.02 [place] [address] [address] 06 Feb, 2018 Arthritis M19.90 [place] [address] [place] [id number] [address] [place] [address] Jan, Labyrinthitis of left ear H8 3.02 [facility] [address] [facility] [id number] [address] [place] [address] Jan, Arthritis M19.90 [facility] [address] [facility] [id number] [address] [place] [address] Dec, Labyrinthitis of left ear H8 3.02 [facility] [address] [facility] [id number] [address] [place] [address] Nov, Arthritis M19.90 [place] [address] [place] [id number] [address] [place] [id number] Nov, Labyrinthitis of left ear H8 3.02 [place] [address] [place] [id number] [address] [place] [address] Nov, BMI 40.0-44.9, adult Z68.41 ; Chronic kidney disease, stage 4 (severe) N18.4 and Acute right-sided thoracic back pain M54.6 [place] [address] [place] [id number] [address] [place] [address] October, Labyrinthitis of left ear H8 3.02 and Arthritis M19.90 [place] [address] [place] [id number] [address] [place] [address] Sep, BPV (benign positional verti go), bilateral H81.13 ; Dysfunction of left eustachian tube H69.82 and BMI 40.0-44.9, adult Z68.41 [place] [address] [facility] [id number] [address] [place] [address] Sep, Labyrinthitis of left ear H8 3.02 and Arthritis M19.90 [place] [address] [facility] [id number] [address] [place] [address] Sep, [place] [address] [place] [id number] [address] [place] [address] Sep, [facility] [address] [id number] [address] [place] [address] Sep, Chronic kidney disease, stag e 4 (severe) N18.4 [facility] [address] [id number] [address] [place] [address] Sep, Chronic kidney disease, stag e 4 (severe) N18.4 [facility] [address] [id number] [address] [place] [address] Aug, Labyrinthitis of left ear H8 3.02 and Arthritis M19.90 [facility] [address] [id number] [address] [place] [address] Aug, [facility] [address] [id number] [address] [place] [address] Jul, [facility] [address] [facility] [id number] [address] [place] [address] Jul, Arthritis M19.90 and Labyrin thitis of left ear H83.02 [facility] [address] [id number] [address] [place] [address] Jul, [facility] [address] [id number] [address] [place] [address] Jun, [facility] [address] [id number] [address] [place] [address] Jun, Arthritis M19.90 and Labyrin thitis of left ear H83.02 [facility] [address] [facility] [id number] [address] [place] [address] Jun, Pre-op evaluation Z01.818 ; BMI 40.0-44.9, adult Z68.41 and Encounter for immunization Z23 [facility] [address] [facility] [id number] [address] [place] [address] May, Arthritis M19.90 and Labyrin thitis of left ear H83.02 [facility] [address] [place] [id number] [address] [place] [address] Apr, Labyrinthitis of left ear H8 3.02 [place] [address] [place] [id number] [address] [place] [address] Apr, Arthritis M19.90 and Labyrin thitis of left ear H83.02 [place] [address] [place] [id number] [address] [place] [address] Mar, Arthritis M19.90 and Labyrin thitis of left ear H83.02 [place] [address] [place] [id number] [address] [place] [address] Mar, Chronic kidney disease, stag e 4 (severe) N18.4 [place] [address] [place] [id number] [address] [place] [address] Feb, Arthritis M19.90 and Labyrin thitis of left ear H83.02 [place] [address] [place] [id number] [place] [address] Jan, Labyrinthitis of left ear H8 3.02 and Deficiency of other specified B group vitamins E53.8 [place] [address] [place] [id number] [address] [place] [address] Dec, Arthritis M19.90 [place] [address] [place] [id number] [address] [place] [address] Dec, BPV (benign positional verti go), bilateral H81.13 [place] [address] [place] [id number] [address] [place] [phone] Dec, [place] [address] [place] [id number] [address] [place] [id number] Dec, [place] [address] [place] [id number] [address] [place] [id number] Dec, [place] [address] [place] [id number] [address] [place] [address] Nov, Arthritis M19.90 and Deficie ncy of other specified B group vitamins E53.8 [facility] [address] [id number] [address] [place] [address] Nov, Arthritis M19.90 [facility] [address] [id number] [address] [place] [address] Nov, Hyperparathyroidism E21.3 [facility] [address] [facility] [id number] [address] [place] [address] October, [facility] [address] [id number] [address] [place] [address] October, Hyperparathyroidism E21.3 [facility] [address] [facility] [id number] [address] [place] [address] October, [facility] [address] [facility] [id number] [address] [place] [address] October, Renal insufficiency N28.9 an d Hyperparathyroidism E21.3 [facility] [address] [facility] [id number] [address] [place] [address] October, [facility] [address] [facility] [id number] [address] [place] [address] October, Renal insufficiency N28.9 an d Hyperparathyroidism E21.3 [facility] [address] [facility] [id number] [address] [place] [address] October, Arthritis M19.90 [facility] [address] [facility] [id number] [address] [place] [address] Sep, [facility] [address] [facility] [id number] [address] [place] [address] Sep, Lumbar neuritis M54.16 ; Tho racic abscess J86.9 and Deficiency of other specified B group vitamins E53.8 [facility] [address] [id number] [address] [place] [address] Sep, [facility] [address] [facility] [id number] [address] [place] [address] Aug, Arthritis M19.90 [facility] [address] [facility] [id number] [address] [place] [address] Aug, Hyperparathyroidism E21.3 [facility] [address] [facility] [id number] [address] [place] [id number] Aug, Hyperparathyroidism E21.3 [facility] [address] [facility] [id number] [address] [place] [address] Aug, Arthritis M19.90 [facility] [address] [facility] [id number] [address] [place] [address] Jul, Mass of throat R22.1 [facility] [address] [place] [id number] [address] [place] [id number] Jul, [facility] [address] [address] Jul, Arthritis M19.90 [facility] [address] [place] [id number] [address] [place] [address] Jun, Arthritis M19.90 [facility] [address] [place] [id number] [address] [place] [address] Jun, [facility] [id number] [place] [address] Jun, Renal insufficiency N28.9 an d 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 [facility] [address] [facility] [id number] [address] [place] [address] 05 Jun, 2016 Medicare welcome exam Z00.00 ; Encounter for immunization Z23 ; Arthritis M19.90 ; Medicare annual wellness visit, initial Z00.00 ; Medicare annual wellness visit, subsequent Z00.00 and Deficiency of other specified B group vitamins E53.8 [facility] [address] [facility] [id number] [address] [place] [id number] May, Renal insufficiency N28.9 an d 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 [facility] [address] [facility] [id number] [address] [place] [address] 19 May, 2016 Renal insufficiency N28.9 [facility] [address] [facility] [id number] [address] [place] [id number] 16 May, 2016 Renal insufficiency N28.9 [facility] [address] [facility] [id number] [address] [place] [address] 14 May, 2016 [facility] [address] [facility] [id number] [address] [place] [id number] 16 Apr, 2016 [facility] [address] [facility] [id number] [address] [place] [id number] 16 Apr, 2016 [facility] [address] [facility] [id number] [address] [place] [phone] 14 Apr, 2016 Mass of throat R22.1 [facility] [address] [facility] [id number] [address] [place] [id number] 10 Apr, 2016 [facility] [address] [facility] [id number] [address] [place] [id number] 10 Apr, 2016 Mass of throat R22.1 [facility] [address] [facility] [id number] [address] [place] [address] 04 Apr, 2016 Mass of throat R22.1 [facility] [address] [facility] [id number] [address] [place] [id number] 31 Mar, 2016 [facility] [address] [facility] [id number] [address] [place] [id number] Mar, [facility] [address] [facility] [id number] [address] [place] [address] Mar, [facility] [address] [facility] [id number] [address] [place] [id number] 24 Mar, 2016 Parathyroid abnormality E21. 5 and Encounter for immunization Z23 [facility] [address] [facility] [id number] [address] [place] [address] 17 Mar, 2016 [facility] [address] [facility] [id number] [address] [place] [phone] Mar, [facility] [address] [id number] [address] [place] [id number] 21 Feb, 2016 Renal insufficiency N28.9 an d Hyperparathyroidism E21.3 [facility] [address] [id number] [address] [place] [id number] 19 Feb, 2016 [facility] [address] [id number] [address] [place] [id number] 15 Feb, 2016 Renal insufficiency N28.9 an d Hyperparathyroidism E21.3 [facility] [address] [id number] [address] [place] [id number] 14 Feb, 2016 [facility] [address] [id number] [address] [place] [id number] 12 Feb, 2016 [facility] [address] [facility] [id number] [address] [place] [id number] Feb, [facility] [address] [facility] [id number] [address] [place] [phone] Jan, [facility] [address] [facility] [id number] [address] [place] [id number] Jan, Arthritis M19.90 ; Lumbago w ith sciatica, right side M54.41 and Other chronic pain G89.29 [facility] [address] [facility] [id number] [address] [place] [address] Jan, [facility] [address] [facility] [id number] [address] [place] [address] Dec, Arthritis M19.90 ; Lumbago w ith sciatica, right side M54.41 and Other chronic pain G89.29 [facility] [address] [facility] [id number] [address] [place] [address] Nov, Deficiency of other specifie d B group vitamins E53.8 ; Primary insomnia F51.01 ; Mood disorder F39 and Lumbago with sciatica, right side M54.41 [facility] [address] [facility] [id number] [address] [place] [address] Nov, Hyperparathyroidism E21.3 [facility] [address] [facility] [id number] [address] [place] [id number] Nov, Unspecified kidney failure N 19 and Hyperparathyroidism E21.3 [facility] [address] [facility] [id number] [address] [place] [id number] October, Hyperparathyroidism E21.3 [facility] [address] [id number] October, [facility] [address] [id number] October, Hyperparathyroidism E21.3 [facility] [address] [id number] October, Hyperparathyroidism E21.3 [facility] [address] [id number] Sep, Hyperparathyroidism E21.3 ; Hypercholesterolemia E78.0 and Arthritis M19.90 [facility] [address] [id number] Aug, [facility] [address] [id number] Aug, Deficiency of other specifie d B group vitamins E53.8 [facility] [address] [place] [id number] [place] [id number] Aug, [facility] [address] [id number] Jul, Urinary frequency R35.0 [facility] [address] [id number] Jul, Urinary frequency R35.0 [facility] [address] [place] [id number] [address] [place] [id number] Jul, [facility] [address] [id number] Jul, [facility] [address] [id number] [address] [place] [id number] Jun, Pain in left knee M25.562 [facility] [address] [id number] [address] [place] [id number] Jun, [facility] [address] [id number] [address] [place] [id number] May, Swelling of left knee joint M25.462 [facility] [address] [id number] [address] [place] [address] May, [facility] [address] [id number] [address] [place] [id number] May, [facility] [address] [facility] [id number] [address] [place] [address] May, [facility] [address] [facility] [id number] [address] [place] [address] Apr, Renal insufficiency N28.9 an d Chronic kidney disease, stage 4 (severe) N18.4 [facility] [address] [facility] [id number] [address] [place] [address] Apr, Unspecified kidney failure N 19 [facility] [address] [facility] [id number] [address] [place] [address] Apr, Unspecified kidney failure N 19 [facility] [address] [facility] [id number] [address] [place] [address] Apr, [facility] [address] [facility] [id number] [address] [place] [address] Apr, Hyperparathyroidism, unspeci fied 252.00 [facility] [address] [facility] [id number] [address] [place] [address] Apr, [facility] [address] [facility] [id number] [address] [place] [address] Mar, [facility] [address] [facility] [id number] [address] [place] [address] Mar, [facility] [address] [id number] [address] [place] [address] Mar, Hyperparathyroidism, unspeci fied 252.00 [facility] [address] [id number] [address] [place] [address] Feb, [facility] [address] [facility] [id number] [address] [place] [address] Feb, Otalgia 388.70 [facility] [address] [facility] [id number] [address] [place] [address] Feb, [facility] [address] [facility] [id number] [address] [place] [address] Feb, [facility] [address] [facility] [id number] [address] [place] [address] Jan, [facility] [address] [facility] [id number] [address] [place] [address] Jan, Hyperparathyroidism, unspeci fied 252.00 [facility] [address] [id number] [address] [place] [address] Jan, [facility] [address] [facility] [id number] [address] [place] [address] Jan, Other B-complex deficiencies 266.2 and Hyperparathyroidism, unspecified 252.00 [facility] [address] [facility] [id number] [address] [place] [address] Jan, [facility] [address] [facility] [id number] [address] [place] [id number] Jan, [facility] [address] [facility] [id number] [address] [place] [address] Jan, [facility] [address] [facility] [id number] [address] [place] [id number] Dec, [facility] [address] [facility] [id number] [address] [place] [address] Dec, [facility] [address] [id number] [address] [place] [address] Dec, [facility] [address] [id number] [address] [place] [id number] Nov, Routine check-up V70.0 and P re-op exam V72.84 [facility] [address] [id number] [address] [place] [id number] Nov, [facility] [address] [id number] [address] [place] [address] Nov, [facility] [address] [id number] [address] [place] [id number] October, [facility] [address] [id number] [address] [place] [id number] October, Other B-complex deficiencies 266.2 [facility] [address] [id number] [address] [place] [id number] October, [facility] [address] [id number] [address] [place] [id number] Sep, [facility] [address] [id number] [address] [place] [address] Sep, [facility] [address] [id number] [address] [place] [address] Aug, [facility] [address] [id number] [address] [place] [id number] Aug, [facility] [address] [id number] [address] [place] [phone] Aug, [facility] [address] [id number] [address] [place] [id number] 17 Aug, 2014 [facility] [address] [id number] [address] [place] [id number] Aug, [facility] [address] [id number] [address] [place] [phone] Aug, [facility] [address] [id number] [address] [place] [address], [place] [address] Jul, 2014 [facility] [address] [id number] [address] [place] [address], [place] [address] Jul, 2014 [facility] [address] [id number] [address] [place] [address], [place] [address] Jul, 2014 [facility] [address] [id number] [address] [place] [address], [place] [address] Jul, 2014 [facility] [address] [id number] [address] [place] [address], [place] [address] Jul, 2014 [facility] [address] [id number] [address] [place] [address], [place] [address] Jul, 2014 [facility] [address] [id number] [address] [place] [address], [place] [address] Jul, 2014 [facility] [address] [id number] [address] [place] [address], [place] [address] Jul, 2014 [facility] [address] [id number] [address] [place] [address], [place] [address] Jul, 2014 [facility] [address] [id number] [address] [place] [address], [place] [address] Jul, 2014 [facility] [address] [id number] [address] [place] [address], [place] [address] Jul, 2014 [facility] [address] [id number] [address] [place] [address], [place] [address] Jul, 2014 [facility] [address] [id number] [address] [place] [address], [place] [address] Jul, 2014 [facility] [address] [id number] [address] [place] [address], [place] [address] Jul, 2014 [facility] [address] [id number] [address] [place] [address], [place] [address] Jun, [facility] [address] [id number] [address] [place] [address], [place] [address] Jun, [facility] [address] [id number] [address] [place] [address], [place] [address] Jun, [facility] [address] [id number] [address] [place] [address], [place] [address] Jun, [facility] [address] [id number] [address] [place] [address], [place] [address] Jun, [facility] [address] [id number] [address] [place] [address], [place] [address] Jun, [facility] [address] [id number] [address] [place] [address], [place] [address] Jun, [facility] [address] [id number] [address] [place] [address], [place] [address] Jun, [facility] [address] [id number] [address] [place] [address], [place] [address] Jun, [facility] [address] [id number] [address] [place] [address], [place] [address] Jun, [facility] [address] [id number] [address] [place] [address], [place] [address] Jun, [facility] [address] [id number] [address] [place] [address], [place] [address] Jun, [facility] [address] [id number] [address] [place] [address] Jun, [facility] [address] [id number] [address] [place] [address], [place] [address] Jun, [facility] [address] [id number] [address] [place] [address], [place] [address] May, [facility] [address] [id number] [address] [place] [address], [place] [address] May, [facility] [address] [id number] [address] [place] [address] May, [facility] [address] [id number] [address] [place] [address], [place] [address] May, [facility] [address] [id number] [address] [place] [address], [place] [address] Apr, [facility] [address] [id number] [address] [place] [address], [place] [address] Apr, [facility] [address] [id number] [address] [place] [address], [place] [address] Apr, [facility] [address] [id number] [address] [place] [address], [place] [address] Apr, [facility] [address] [id number] [address] [place] [address], [place] [address] Apr, [facility] [address] [id number] [address] [place] [address], [place] [address] Apr, [facility] [address] [id number] [address] [place] [address], [place] [address] Mar, [facility] [address] [id number] [address] [place] [address], [place] [address] Mar, [facility] [address] [id number] [address] [place] [address], [place] [address] Mar, [facility] [address] [id number] [address] [place] [address], [place] [address] Mar, [facility] [address] [id number] [address] [place] [id number] 15 Mar, 2014 [facility] [address] [id number] [address] [place] [address], [place] [address] 15 Mar, 2014 [facility] [address] [id number] [address] [place] [address] Mar, [facility] [address] [id number] [address] [place] [id number] Mar, [facility] [address] [id number] [address] [place] [address], [place] [address] 07 Mar, 2013 [facility] [address] [id number] [address] [place] [address], [place] [address] 07 Mar, 2013 [facility] [address] [id number] [address] [place] [address], [place] [address] 07 Mar, 2013 [facility] [address] [id number] [address] [place] [address], [place] [address] 07 Mar, 2013 [facility] [address] [id number] [address] [place] [address], [place] [address] 06 Mar, 2013 [facility] [address] [id number] [address] [place] [address], [place] [address] 26 Feb, 2013 [facility] [address] [id number] [address] [place] [address], [place] [address] 26 Feb, 2013 [facility] [address] [id number] [address] [place] [address], [place] [address] 23 Feb, 2013 [facility] [address] [id number] [address] [place] [address], [place] [address] 23 Feb, 2013 [facility] [address] [id number] [address] [place] [address], [place] [address] 19 Feb, 2013 [facility] [address] [id number] [address] [place] [address], [place] [address] 19 Feb, 2013 [facility] [address] [id number] [address] [place] [address], [place] [address] 13 Feb, 2013 [facility] [address] [id number] [address] [place] [address], [place] [address] 13 Feb, 2013 [facility] [address] [id number] [address] [place] [address], [place] [address] 12 Feb, 2013 [facility] [address] [id number] [address] [place] [address], [place] [address] 12 Feb, 2013 [facility] [address] [id number] [address] [place] [address], [place] [address] Jan, [facility] [address] [id number] [facility] [place] [address] Jan, [facility] [address] [id number] [facility] [place] [address] Dec, [facility] [address] [id number] [facility] [place] [address] Dec, [facility] [address] [id number] [address] [place] [address], [place] [address] Dec, [facility] [address] [id number] [address] [place] [address], [place] [address] Dec, [facility] [address] [id number] [address] [place] [address], [place] [address] Dec, [facility] [address] [id number] [address] [place] [address], [place] [address] Dec, [facility] [address] [id number] [address] [place] [address], [place] [address] Nov, [facility] [address] [id number] [address] [place] [address], [place] [address] Nov, [facility] [address] [id number] [address] [place] [address], [place] [address] Nov, [facility] [address] [id number] [address] [place] [address], [place] [address] Nov, [facility] [address] [id number] [address] [place] [address], [place] [address] October, [facility] [address] [id number] [address] [place] [address], [place] [address] October, [facility] [address] [id number] [address] [place] [address], [place] [address] October, [facility] [address] [id number] [address] [place] [address], [place] [address] October, [facility] [address] [id number] [address] [place] [address], [place] [address] October, [facility] [address] [id number] [address] [place] [address], [place] [address] October, [facility] [address] [id number] [address] [place] [address], [place] [address] October, [facility] [place] [address] [id number] [address] [place] [address], [place] [address] October, [facility] [address] [id number] [address] [place] [address], [place] [address] October, [facility] [address] [id number] [address] [place] [address], [place] [address] October, [facility] [address] [id number] [address] [place] [address], [place] [address] October, [facility] [place] [address] [id number] [address] [place] [address], [place] [address] October, [facility] [address] [id number] [address] [place] [address], [place] [address] October, [facility] [address] [id number] [address] [place] [address], [place] [address] October, [facility] [address] [id number] [address] [place] [address], [place] [address] October, [facility] [address] [id number] [address] [place] [address], [place] [address] October, [facility] [address] [id number] [address] [place] [address], [place] [address] Sep, [facility] [address] [id number] [address] [place] [address], [place] [address] Sep, [facility] [address] [id number] [address] [place] [address], [place] [address] Sep, [facility] [address] [id number] [address] [place] [address], [place] [address] Sep, [facility] [address] [id number] [address] [place] [address], [place] [address] Sep, [facility] [address] [id number] [address] [place] [address], [place] [address] Sep, [facility] [address] [id number] [address] [place] [address], [place] [address] Aug, [facility] [address] [id number] [address] [place] [address], [place] [address] Aug, [facility] [address] [id number] [address] [place] [address], [place] [address] Aug, [facility] [address] [id number] [address] [place] [address], [place] [address] Aug, [facility] [address] [id number] [address] [place] [address], [place] [address] Aug, [facility] [address] [id number] [address] [place] [address], [place] [address] Aug, [facility] [address] [id number] [address] [place] [address], [place] [address] Jul, [facility] [address] [id number] [address] [place] [address], [place] [address] Jul, [facility] [address] [id number] [address] [place] [address], [place] [address] Jul, [facility] [address] [id number] [address] [place] [address], [place] [address] Jul, [facility] [address] [id number] [address] [place] [address], [place] [address] Jun, [facility] [address] [id number] [address] [place] [address], [place] [address] Jun, [facility] [address] [id number] [address] [place] [address], [place] [address] May, [facility] [address] [id number] [address] [place] [address] 11 May, 2013 [facility] [address] [id number] [address] [place] [address], [place] [address] 10 May, 2013 [facility] [address] [id number] [address] [place] [address] May, [facility] [address] [id number] [address] [place] [address] May, [facility] [address] [id number] [address] [place] [id number] Apr, [facility] [address] [id number] [address] [place] [id number] Apr, [facility] [address] [id number] [address] [place] [id number] Apr, [facility] [address] [id number] [address] [place] [id number] Apr, [facility] [address] [id number] [address] [place] [id number] Apr, [facility] [address] [id number] [address] [place] [id number] 04 Apr, 2013 [facility] [address] [id number] [address] [place] [id number] 15 Mar, 2013 [facility] [address] [id number] [address] [place] [id number] 15 Mar, 2013 [facility] [address] [id number] [address] [place] [id number] 14 Mar, 2013 [facility] [address] [id number] [address] [place] [id number] 14 Mar, 2013 [facility] [address] [id number] [address] [place] [id number] 11 Mar, 2013 [facility] [address] [id number] [address] [place] [id number] 11 Mar, 2013 [facility] [address] [id number] [facility] [place] [address] Feb, [facility] [address] [id number] [address] [place] [address], [place] [address] Feb, [facility] [address] [id number] [address] [place] [address], [place] [address] Feb, [facility] [address] [id number] [address] [place] [address], [place] [address] Jan, [facility] [address] [id number] [address] [place] [address], [place] [address] Jan, [facility] [address] [id number] [address] [place] [address], [place] [address] Jan, [facility] [address] [id number] [address] [place] [address], [place] [address] Jan, [facility] [address] [id number] [address] [place] [address], [place] [address] Jan, [facility] [address] [id number] [address] [place] [address], [place] [address] Jan, [facility] [address] [id number] [address] [place] [address], [place] [address] Dec, [facility] [address] [id number] [address] [place] [address], [place] [address] Dec, [facility] [address] [id number] [address] [place] [address], [place] [address] Dec, [facility] [address] [id number] [address] [place] [address], [place] [address] Dec, [facility] [address] [id number] [address] [place] [address], [place] [address] Dec, [facility] [address] [id number] [address] [place] [address], [place] [address] Dec, [facility] [address] [id number] [address] [place] [address], [place] [address] 26 Nov, 2012 [facility] [place] [address] [id number] [address] [place] [address], [place] [address] 19 Nov, 2012 [facility] [address] [id number] [address] [place] [address], [place] [address] 18 Nov, 2012 [facility] [address] [id number] [address] [place] [address], [place] [address] 13 Nov, 2012 [facility] [address] [id number] [address] [place] [address], [place] [address] Nov, [facility] [address] [id number] [address] [place] [address], [place] [address] Nov, [facility] [address] [id number] [address] [place] [address], [place] [address] October, [facility] [address] [id number] [address] [place] [address], [place] [address] October, [facility] [address] [id number] [address] [place] [address], [place] [address] October, [facility] [address] [id number] [address] [place] [address], [place] [address] October, [facility] [address] [id number] [address] [place] [address], [place] [address] October, [facility] [place] [address] [id number] [address] [place], [place] [address], [place] [address] 30 Sep, 2012 [facility] [address] [id number] [address] [place] [address], [place] [address] Sep, [facility] [address] [id number] [address] [place] [address], [place] [address] Sep, [facility] [address] [id number] [address] [place] [address], [place] [address] 18 Sep, 2012 [facility] [address] [id number] [address] [place] [address], [place] [address] Sep, [facility] [address] [id number] [address] [place] [address], [place] [address] 26 Aug, 2012 [facility] [address] [id number] [address] [place] [address], [place] [address] 07 Aug, 2012 [facility] [address] [id number] [address] [place] [address], [place] [address] 04 Aug, 2012 [facility] [address] [id number] [address] [place] [address], [place] [address] 21 Jul, 2012 [facility] [address] [id number] [address] [place] [address], [place] [address] 20 Jul, 2012 [facility] [address] [id number] [address] [place] [address], [place] [address] 11 Jul, 2012 [facility] [address] [id number] [address] [place] [address], [place] [address] 08 Jul, 2012 [facility] [address] [id number] [address] [place] [address], [place] [address] 06 Jul, 2012 [facility] [place] [address] [id number] [address] [place] [address], [place] [address] 05 Jul, 2012 [facility] [place] [address] [id number] [address] [place] [address], [place] [address] 15 Jun, [address] [facility] [address] [id number] [address] [place] [address], [place] [address] 16 Apr, 2012 [facility] [address] [id number] [address] [place] [address], [place] [address] 16 Apr, 2012 [facility] [address] [id number] [address] [place] [address], [place] [address] Apr, [facility] [address] [id number] [address] [place] [address], [place] [address] Apr, [facility] [address] [id number] [address] [place] [address], [place] [address] Mar, [facility] [address] [id number] [address] [place] [address], [place] [address] Mar, [facility] [address] [id number] [address] [place] [address], [place] [address] Mar, [facility] [address] [id number] [address] [place] [address], [place] [address] Mar, [facility] [address] [id number] [address] [place] [address], [place] [address] Mar, [facility] [address] [id number] [address] [place] [address], [place] [address] Feb, [facility] [address] [id number] [address] [place] [address], [place] [address] Jan, [facility] [address] [id number] [address] [place] [address], [place] [address] Jan, [facility] [address] [id number] [address] [place] [address], [place] [address] Jan, [facility] [address] [id number] [address] [place] [address], [place] [address] Dec, [facility] [address] [id number] [address] [place] [address], [place] [address] Nov, [facility] [address] [id number] [address] [place] [address], [place] [address] Nov, [facility] [address] [id number] [address] [place] [address], [place] [address] Nov, [facility] [address] [id number] [address] [place] [address] Nov, [facility] [address] [id number] [address] [place] [address], [place] [address] Nov, [facility] [address] [id number] [address] [place] [address], [place] [address] October, [facility] [address] [id number] [address] [place] [address], [place] [address] October, [facility] [address] [id number] [address] [place] [address] October, [facility] [address] [facility] [id number] [address] [place] [address] October, [facility] [address] [facility] [id number] [address] [place] [address] October, IMMUNIZATIONS No Known Immunizations SOCIAL HISTORY Never Assessed REASON FOR VISIT PLAN OF CARE VITAL SIGNS Height 66 in 2013-01-19 Weight 269.7 lbs 2013-01-19 Temperature 98.9 degrees Fahrenheit 2013-01-19 Heart Rate 72 bpm 2013-01-19 Respiratory Rate 18 2013-01-19 Blood pressure systolic 122 mmHg 2013-01-19 Blood pressure diastolic 80 mmHg 2013-01-19 MEDICATIONS Unknown Medications RESULTS No Results PROCEDURES Procedure Date Ordered Result Body Site BASIC METABOLIC PANEL January 19, 2013 VENIPUNCT, ROUTINE* January 19, 2013 INSTRUCTIONS MEDICATIONS ADMINISTERED No Known Medications [...]
--- OUTSIDE RECORDS SUMMARY | 2020-01-25 07:50 | XMS REPORT ---
Author Author Velma CORDERO Organization [facility] Address [address] [place] [address] Care Team Providers Care Head Esthetician Name Role Phone STEPHAN CORDERO Unavailable PROBLEMS Type Condition ICD9-CM Code HSG27-LV Code Onset Dates Condition S tatus SNOMED Code Problem Primary insomnia F51.01 Active 397 2004 Problem Hypercholesteremia E78.0 Active 1 7680108 Problem Corns L84 Active 324056965 Problem Arthritis M19.90 Active 6871499 Problem Hyperparathyroidism E21.3 Active 24650327 Problem 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 Active 19901479 Problem 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 Active 52145549 Problem BPV (benign positional vertigo), bilateral H81.13 Active 150992820 Problem Unspecified kidney failure N19 Act chip 37863512 Problem Myalgia M79.1 Active 38516673 Problem 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 Active 527814843 Problem Mood disorder F39 Active 081086 05 Problem Chronic kidney disease, stage 4 (severe) N18.4 Active 459901904 Problem Primary osteoarthritis of left knee M17.12 Active [id number] Problem Irritable bowel syndrome with both constipation and diarrh ea K58.2 Active 80002391 Problem Body mass index (BMI) of 40.0-44.9 in adult Z68.41 Active 567665519 ALLERGIES No Information ENCOUNTERS Encounter Location Date Diagnosis [facility] [address] [facility] [id number] [address] [place] [phone] Nov, Inflammatory spondylopathy o f sacral region M46.98 [facility] [address] [facility] [id number] [address] [place] [phone] Nov, [facility] [address] [facility] [facility] [id number] [address] [place] [phone] 14 Nov, 2018 Labyrinthitis of left ear H8 3.02 [facility] [address] [id number] [address] [place] [address] Nov, Arthritis M19.90 [facility] [address] [id number] [address] [place] [phone] Sep, Arthritis M19.90 [facility] [address] [facility] [id number] [address] [place] [phone] Sep, Renal insufficiency N28.9 an d Unspecified kidney failure N19 [facility] [address] [id number] [address] [place] [address] Sep, Renal insufficiency N28.9 an d Unspecified kidney failure N19 [facility] [address] [id number] [address] [place] [address] Sep, Arthritis M19.90 [facility] [address] [id number] [address] [place] [phone] Aug, Exercise counseling Z71.82 [facility] [address] [id number] [address] [place] [phone] Aug, [facility] [address] [facility] [facility] [id number] [address] [place] [phone] Jul, Labyrinthitis of left ear H8 3.02 [facility] [address] [facility] [facility] [id number] [address] [place] [phone] Jul, Labyrinthitis of left ear H8 3.02 [facility] [address] [id number] [address] [place] [address] Jul, Exercise counseling Z71.82 [facility] [address] [facility] [facility] [id number] [address] [place] [phone] 18 Jul, 2018 [facility] [address] [facility] [id number] [address] [place] [phone] 14 Jul, 2018 Arthritis M19.90 [facility] [address] [facility] [id number] [address] [place] [phone] 13 Jul, 2018 Encounter for Medicare annua l wellness exam Z00.00 ; Chronic kidney disease, stage 4 (severe) N18.4 ; Body mass index (BMI) of 40.0-44.9 in adult Z68.41 ; Hyperparathyroidism E21.3 and BMI 40.0-44.9, adult Z68.41 [facility] [address] [place] [id number] [address] [place] [phone] 13 Jul, 2018 Encounter for Medicare annua l wellness exam Z00.00 ; Chronic kidney disease, stage 4 (severe) N18.4 ; Hyperparathyroidism E21.3 ; Body mass index (BMI) of 40.0-44.9 in adult Z68.41 and Encounter for immunization Z23 [place] [address] [place] [phone] 11 Jul, 2018 Tail bone pain M53.3 [place] [address] [address] 29 Jun, 2018 Exercise counseling Z71.82 [place] [address] [address] Jun, Labyrinthitis of left ear H8 3.02 [place] [address] [place] [id number] [address] [place] [address] Jun, Tail bone pain M53.3 ; Irrit able bowel syndrome with both constipation and diarrhea K58.2 and Dysfunction of left eustachian tube H69.82 [place] [address] [place] [id number] [address] [place] [address] Jun, Exercise counseling Z71.82 [place] [address] [facility] [id number] [address] [place] [address] Jun, Arthritis M19.90 [place] [address] [place] [id number] [place] [phone] 16 Jun, 2018 Irritable bowel syndrome wit h both constipation and diarrhea K58.2 ; Tail bone pain M53.3 and Dysfunction of left eustachian tube H69.82 [facility] [address] [id number] [address] [place] [phone] Jun, Exercise counseling Z71.82 [facility] [address] [id number] [address] [place] [address] Jun, Exercise counseling Z71.82 [facility] [address] [id number] [address] [place] [address] Jun, Labyrinthitis of left ear H8 3.02 [facility] [address] [id number] [address] [place] [address] May, Exercise counseling Z71.82 [facility] [address] [id number] [address] [place] [address] May, Arthritis M19.90 [facility] [address] [id number] [address] [place] [address] May, Exercise counseling Z71.82 [facility] [address] [id number] [address] [place] [address] May, Exercise counseling Z71.82 [facility] [address] [id number] [address] [place] [address] May, Labyrinthitis of left ear H8 3.02 [facility] [address] [id number] [address] [place] [address] May, Exercise counseling Z71.82 [facility] [address] [id number] [address] [place] [phone] Apr, Arthritis M19.90 [facility] [address] [id number] [address] [place] [address] Apr, Exercise counseling Z71.82 [facility] [address] [id number] [address] [place] [address] Apr, Exercise counseling Z71.82 [facility] [address] [id number] [address] [place] [phone] Apr, Primary osteoarthritis of le ft knee M17.12 [facility] [address] [place] [id number] [address] [place] [address] Apr, Labyrinthitis of left ear H8 3.02 [facility] [address] [place] [id number] [address] [place] [address] Mar, Arthritis M19.90 [place] [address] [phone] Mar, [place] [address] [place] [id number] [place] [address] Mar, Chronic kidney disease, stag e 4 (severe) N18.4 [place] [address] [place] [id number] [place] [address] Mar, Chronic kidney disease, stag e 4 (severe) N18.4 [place] [address] [address] Mar, Labyrinthitis of left ear H8 3.02 [place] [address] [place] [id number] [address] [place] [address] Mar, Chronic kidney disease, stag e 4 (severe) N18.4 ; Knee pain, left anterior M25.562 ; Deficiency of other specified B group vitamins E53.8 and Encounter for immunization Z23 [place] [address] [place] [id number] [address] [place] [address] Mar, Arthritis M19.90 [place] [address] [place] [id number] [address] [place] [address] Feb, Labyrinthitis of left ear H8 3.02 [place] [address] [place] [id number] [place] [address] Feb, Arthritis M19.90 [place] [address] [place] [id number] [address] [place] [address] Jan, Labyrinthitis of left ear H8 3.02 [place] [address] [place] [id number] [address] [place] [phone] Jan, Arthritis M19.90 [place] [address] [address] Dec, Labyrinthitis of left ear H8 3.02 [place] [address] [address] Nov, Arthritis M19.90 [place] [address] [address] Nov, Labyrinthitis of left ear H8 3.02 [place] [address] [address] Nov, BMI 40.0-44.9, adult Z68.41 ; Chronic kidney disease, stage 4 (severe) N18.4 and Acute right-sided thoracic back pain M54.6 [place] [address] [address] October, Labyrinthitis of left ear H8 3.02 and Arthritis M19.90 [place] [address] [address] Sep, BPV (benign positional verti go), bilateral H81.13 ; Dysfunction of left eustachian tube H69.82 and BMI 40.0-44.9, adult Z68.41 [place] [address] [address] Sep, Labyrinthitis of left ear H8 3.02 and Arthritis M19.90 [place] [address] [address] Sep, [place] [address] [address] Sep, [place] [address] [address] Sep, Chronic kidney disease, stag e 4 (severe) N18.4 [facility] [address] [facility] [facility] [id number] [address] [place] [address] Sep, Chronic kidney disease, stag e 4 (severe) N18.4 [facility] [address] [id number] [address] [place] [address] Aug, Labyrinthitis of left ear H8 3.02 and Arthritis M19.90 [facility] [address] [id number] [address] [place] [address] Aug, [facility] [address] [id number] [address] [place] [address] Jul, [facility] [address] [facility] [facility] [id number] [address] [place] [address] Jul, Arthritis M19.90 and Labyrin thitis of left ear H83.02 [facility] [address] [place] [id number] [address] [place] [phone] Jul, [facility] [address] [facility] [id number] [address] [place] [address] Jun, [facility] [address] [facility] [id number] [address] [place] [address] Jun, Arthritis M19.90 and Labyrin thitis of left ear H83.02 [facility] [address] [facility] [id number] [address] [place] [address] Jun, Pre-op evaluation Z01.818 ; BMI 40.0-44.9, adult Z68.41 and Encounter for immunization Z23 [facility] [address] [facility] [id number] [address] [place] [address] May, Arthritis M19.90 and Labyrin thitis of left ear H83.02 [facility] [address] [facility] [id number] [address] [place] [address] Apr, Labyrinthitis of left ear H8 3.02 [facility] [address] [id number] [address] [place] [address] Apr, Arthritis M19.90 and Labyrin thitis of left ear H83.02 [facility] [address] [facility] [id number] [address] [place] [phone] 10 Mar, 2017 Arthritis M19.90 and Labyrin thitis of left ear H83.02 [facility] [address] [facility] [id number] [address] [place] [phone] 05 Mar, 2017 Chronic kidney disease, stag e 4 (severe) N18.4 [facility] [address] [facility] [id number] [address] [place] [address] Feb, Arthritis M19.90 and Labyrin thitis of left ear H83.02 [place] [address] [facility] [id number] [address] [place] [address] Jan, Labyrinthitis of left ear H8 3.02 and Deficiency of other specified B group vitamins E53.8 [place] [address] [facility] [id number] [address] [place] [address] Dec, Arthritis M19.90 [place] [address] [facility] [id number] [address] [place] [phone] Dec, BPV (benign positional verti go), bilateral H81.13 [place] [address] [facility] [id number] [address] [place] [address] Dec, [facility] [address] [facility] [id number] [address] [place] [address] Dec, [facility] [address] [id number] [address] [place] [phone] Dec, [facility] [address] [facility] [id number] [address] [place] [address] Nov, Arthritis M19.90 and Deficie ncy of other specified B group vitamins E53.8 [place] [address] [facility] [id number] [address] [place] [address] Nov, Arthritis M19.90 [facility] [address] [id number] [address] [place] [address] Nov, Hyperparathyroidism E21.3 [facility] [address] [id number] [address] [place] [phone] October, [facility] [address] [facility] [id number] [address] [place] [address] October, Hyperparathyroidism E21.3 [facility] [address] [facility] [id number] [address] [place] [phone] October, [facility] [address] [facility] [id number] [address] [place] [address] October, Renal insufficiency N28.9 an d Hyperparathyroidism E21.3 [facility] [address] [facility] [id number] [address] [place] [address] October, [facility] [address] [facility] [id number] [address] [place] [phone] October, Renal insufficiency N28.9 an d Hyperparathyroidism E21.3 [facility] [address] [facility] [id number] [address] [place] [address] October, Arthritis M19.90 [facility] [address] [facility] [id number] [address] [place] [address] Sep, [facility] [address] [facility] [id number] [address] [place] [address] Sep, Lumbar neuritis M54.16 ; Tho racic abscess J86.9 and Deficiency of other specified B group vitamins E53.8 [facility] [address] [facility] [id number] [address] [place] [phone] Sep, [facility] [address] [facility] [id number] [address] [place] [address] Aug, Arthritis M19.90 [facility] [address] [facility] [id number] [address] [place] [phone] Aug, Hyperparathyroidism E21.3 [facility] [address] [facility] [id number] [address] [place] [address] Aug, Hyperparathyroidism E21.3 [facility] [address] [facility] [id number] [address] [place] [address] Aug, Arthritis M19.90 [facility] [address] [facility] [id number] [address] [place] [address] Jul, Mass of throat R22.1 [facility] [address] [facility] [id number] [address] [place] [phone] Jul, [facility] [address] [facility] [id number] [address] [place] [address] Jul, Arthritis M19.90 [facility] [address] [facility] [id number] [address] [place] [address] Jun, Arthritis M19.90 [facility] [address] [facility] [id number] [address] [place] [address] Jun, [facility] [address] [facility] [id number] [address] [place] [address] Jun, Renal insufficiency N28.9 an d 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 [facility] [address] [facility] [id number] [address] [place] [address] 05 Jun, 2016 Medicare welcome exam Z00.00 ; Encounter for immunization Z23 ; Arthritis M19.90 ; Medicare annual wellness visit, initial Z00.00 ; Medicare annual wellness visit, subsequent Z00.00 and Deficiency of other specified B group vitamins E53.8 [facility] [address] [facility] [id number] [address] [place] [address] May, Renal insufficiency N28.9 an d 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 [facility] [address] [facility] [id number] [address] [place] [address] May, Renal insufficiency N28.9 [facility] [address] [facility] [id number] [address] [place] [phone] 16 May, 2016 Renal insufficiency N28.9 [facility] [address] [facility] [id number] [address] [place] [address] 14 May, 2016 [facility] [address] [facility] [id number] [address] [place] [address] 16 Apr, 2016 [facility] [address] [facility] [id number] [address] [place] [phone] 16 Apr, 2016 [facility] [address] [facility] [id number] [address] [place] [phone] 14 Apr, 2016 Mass of throat R22.1 [facility] [address] [facility] [id number] [address] [place] [phone] 10 Apr, 2016 [facility] [address] [facility] [id number] [address] [place] [address] Apr, Mass of throat R22.1 [facility] [address] [facility] [id number] [address] [place] [phone] 04 Apr, 2016 Mass of throat R22.1 [facility] [address] [facility] [facility] [id number] [address] [place] [phone] Mar, [facility] [address] [facility] [facility] [id number] [address] [place] [phone] Mar, [facility] [address] [facility] [facility] [id number] [address] [place] [phone] Mar, [facility] [address] [place] [id number] [address] [place] [phone] 24 Mar, 2016 Parathyroid abnormality E21. 5 and Encounter for immunization Z23 [facility] [address] [facility] [facility] [id number] [address] [place] [phone] 17 Mar, 2016 [facility] [address] [facility] [id number] [address] [place] [phone] 11 Mar, 2016 [facility] [address] [place] [id number] [address] [place] [phone] Feb, Renal insufficiency N28.9 an d Hyperparathyroidism E21.3 [facility] [address] [facility] [id number] [address] [place] [phone] Feb, [facility] [address] [facility] [facility] [id number] [address] [place] [phone] 15 Feb, 2016 Renal insufficiency N28.9 an d Hyperparathyroidism E21.3 [place] [address] [facility] [facility] [id number] [address] [place] [phone] 14 Feb, 2016 [facility] [address] [facility] [id number] [address] [place] [phone] Feb, [place] [address] [address] Feb, [place] [address] [phone] Jan, [place] [address] [address] Jan, Arthritis M19.90 ; Lumbago w ith sciatica, right side M54.41 and Other chronic pain G89.29 [place] [address] [address] Jan, [place] [address] [address] Dec, Arthritis M19.90 ; Lumbago w ith sciatica, right side M54.41 and Other chronic pain G89.29 [place] [id number] [place] [phone] 16 Nov, 2015 Deficiency of other specifie d B group vitamins E53.8 ; Primary insomnia F51.01 ; Mood disorder F39 and Lumbago with sciatica, right side M54.41 [place] [address] [facility] [id number] [address] [place] [phone] Nov, Hyperparathyroidism E21.3 [place] [address] [address] [place] [id number] [address] [place] [phone] Nov, Unspecified kidney failure N 19 and Hyperparathyroidism E21.3 [facility] [address] [address] October, Hyperparathyroidism E21.3 [facility] [address] [address] October, [facility] [address] [address] October, Hyperparathyroidism E21.3 [facility] [address] [address] October, Hyperparathyroidism E21.3 [facility] [address] [address] Sep, Hyperparathyroidism E21.3 ; Hypercholesterolemia E78.0 and Arthritis M19.90 [facility] [address] [address] Aug, [facility] [address] [address] Aug, Deficiency of other specifie d B group vitamins E53.8 [facility] [address] [address] Aug, [facility] [address] [address] Jul, Urinary frequency R35.0 [facility] [address] [address] Jul, Urinary frequency R35.0 [facility] [address] [address] Jul, [facility] [address] [address] Jul, [facility] [address] [address] Jun, Pain in left knee M25.562 [facility] [address] [id number] [address] [place] [phone] Jun, [facility] [address] [id number] [address] [place] [phone] May, Swelling of left knee joint M25.462 [facility] [address] [id number] [address] [place] [address] May, [facility] [address] [id number] [address] [place] [address] May, [facility] [address] [id number] [address] [place] [address] May, [facility] [address] [facility] [id number] [address] [place] [address] Apr, Renal insufficiency N28.9 an d Chronic kidney disease, stage 4 (severe) N18.4 [facility] [address] [facility] [id number] [address] [place] [address] Apr, Unspecified kidney failure N 19 [facility] [address] [facility] [id number] [address] [place] [address] Apr, Unspecified kidney failure N 19 [facility] [address] [facility] [id number] [address] [place] [address] Apr, [facility] [address] [facility] [id number] [address] [place] [address] Apr, Hyperparathyroidism, unspeci fied 252.00 [facility] [address] [id number] [address] [place] [address] Apr, [facility] [address] [id number] [address] [place] [address] Mar, [facility] [address] [id number] [address] [place] [address] Mar, [facility] [address] [facility] [id number] [address] [place] [address] Mar, Hyperparathyroidism, unspeci fied 252.00 [facility] [address] [id number] [address] [place] [address] Feb, [facility] [address] [facility] [id number] [address] [place] [address] Feb, Otalgia 388.70 [facility] [address] [id number] [address] [place] [address] Feb, [facility] [address] [id number] [address] [place] [address] Feb, [facility] [address] [facility] [id number] [address] [place] [address] Jan, [facility] [address] [id number] [address] [place] [address] Jan, Hyperparathyroidism, unspeci fied 252.00 [facility] [address] [id number] [address] [place] [phone] Jan, [facility] [address] [facility] [id number] [address] [place] [address] Jan, Other B-complex deficiencies 266.2 and Hyperparathyroidism, unspecified 252.00 [facility] [address] [id number] [address] [place] [address] Jan, [facility] [address] [facility] [id number] [address] [place] [address] Jan, [facility] [address] [facility] [id number] [address] [place] [address] Jan, [facility] [address] [id number] [address] [place] [phone] Dec, [facility] [address] [facility] [id number] [address] [place] [address] Dec, [facility] [address] [facility] [id number] [address] [place] [address] Dec, [facility] [address] [id number] [address] [place] [address] 15 Nov, 2014 Routine check-up V70.0 and P re-op exam V72.84 [facility] [place] [address] [id number] [address] [place] [phone] 12 Nov, 2014 [facility] [place] [address] [id number] [address] [place] [address] Nov, [facility] [place] [address] [id number] [address] [place] [phone] October, [facility] [place] [address] [id number] [address] [place] [address] October, Other B-complex deficiencies 266.2 [facility] [place] [address] [id number] [address] [place] [address] October, [facility] [place] [address] [id number] [address] [place] [phone] 14 Sep, 2014 [facility] [place] [address] [id number] [address] [place] [id number] Sep, [facility] [place] [address] [id number] [address] [place] [phone] 20 Aug, 2014 [facility] [place] [address] [id number] [address] [place] [id number] 20 Aug, 2014 [facility] [place] [address] [id number] [address] [place] [phone] 17 Aug, 2014 [facility] [place] [address] [id number] [address] [place] [id number] 17 Aug, 2014 [facility] [place] [address] [id number] [address] [place] [phone] Aug, [facility] [place] [address] [id number] [address] [place] [phone] Aug, [facility] [place] [address] [id number] [address] [place] [id number] 18 Jul, 2014 [facility] [address] [id number] [address] [place] [address], [place] [address] Jul, 2014 [facility] [address] [id number] [address] [place] [address], [place] [address] Jul, 2014 [facility] [address] [id number] [address] [place] [address], [place] [address] Jul, 2014 [facility] [address] [id number] [address] [place] [address], [place] [address] Jul, 2014 [facility] [address] [id number] [address] [place] [address], [place] [address] Jul, 2014 [facility] [address] [id number] [address] [place] [address], [place] [address] Jul, 2014 [facility] [address] [id number] [address] [place] [address], [place] [address] Jul, 2014 [facility] [address] [id number] [address] [place] [address], [place] [address] Jul, 2014 [facility] [address] [id number] [address] [place] [address], [place] [address] Jul, 2014 [facility] [address] [id number] [address] [place] [address], [place] [address] Jul, 2014 [facility] [address] [id number] [address] [place] [address], [place] [address] Jul, 2014 [facility] [address] [id number] [address] [place] [address], [place] [address] Jul, 2014 [facility] [address] [id number] [address] [place] [address], [place] [address] Jul, 2014 [facility] [address] [id number] [address] [place] [address], [place] [address] Jun, [facility] [address] [id number] [address] [place] [address], [place] [address] Jun, [facility] [address] [id number] [address] [place] [address], [place] [address] Jun, [facility] [address] [id number] [address] [place] [address], [place] [address] Jun, [facility] [address] [id number] [address] [place] [address], [place] [address] Jun, [facility] [address] [id number] [address] [place] [address], [place] [address] Jun, [facility] [address] [id number] [address] [place] [address], [place] [address] Jun, [facility] [address] [id number] [address] [place] [address], [place] [address] Jun, [facility] [address] [id number] [address] [place] [address], [place] [address] Jun, [facility] [address] [id number] [address] [place] [address], [place] [address] Jun, [facility] [address] [id number] [address] [place] [address], [place] [address] Jun, [facility] [address] [id number] [address] [place] [address], [place] [address] Jun, [facility] [address] [id number] [address] [place] [address], [place] [address] Jun, [facility] [address] [id number] [address] [place] [address], [place] [address] Jun, [facility] [address] [id number] [address] [place] [address], [place] [address] May, [facility] [address] [id number] [address] [place] [address], [place] [address] May, [facility] [address] [id number] [address] [place] [address], [place] [address] May, [facility] [address] [id number] [place] [address] May, [facility] [address] [id number] [address] [place] [address], [place] [address] Apr, [facility] [address] [id number] [address] [place] [address], [place] [address] Apr, [facility] [address] [id number] [address] [place] [address], [place] [address] Apr, [facility] [address] [id number] [address] [place] [address] Apr, [facility] [address] [id number] [address] [place] [address], [place] [address] Apr, [facility] [address] [id number] [address] [place] [address] Apr, [facility] [address] [id number] [address] [place] [address], [place] [address] Mar, [facility] [address] [id number] [address] [place] [address], [place] [address] Mar, [facility] [address] [id number] [address] [place] [address], [place] [address] Mar, [facility] [address] [id number] [address] [place] [address], [place] [address] Mar, [facility] [address] [id number] [address] [place] [address] 15 Mar, 2014 [facility] [address] [id number] [address] [place] [address] 15 Mar, 2014 [facility] [address] [id number] [address] [place] [address], [place] [address] Mar, [facility] [address] [id number] [address] [place] [address], [place] [address] Mar, [facility] [address] [id number] [address] [place] [address] Mar, [facility] [address] [id number] [address] [place] [address], [place] [address] 07 Mar, 2014 [facility] [address] [id number] [address] [place] [address], [place] [address] 07 Mar, 2014 [facility] [address] [id number] [address] [place] [address], [place] [address] 07 Mar, 2014 [facility] [address] [id number] [address] [place] [address], [place] [address] 06 Mar, 2014 [facility] [address] [id number] [address] [place] [address], [place] [address] 26 Feb, 2013 [facility] [address] [id number] [address] [place] [address], [place] [address] 26 Feb, 2014 [facility] [address] [id number] [address] [place] [address], [place] [address] 23 Feb, 2013 [facility] [address] [id number] [address] [place] [address], [place] [address] 23 Feb, 2013 [facility] [address] [id number] [address] [place] [address], [place] [address] 19 Feb, 2014 [facility] [address] [id number] [address] [place] [address], [place] [address] 19 Feb, 2014 [facility] [address] [id number] [address] [place] [address], [place] [address] 13 Feb, 2014 [facility] [address] [id number] [address] [place] [address], [place] [address] 13 Feb, 2014 [facility] [address] [id number] [address] [place] [address], [place] [address] 12 Feb, 2014 [facility] [address] [id number] [address] [place] [address], [place] [address] 12 Feb, 2014 [facility] [address] [id number] [address] [place] [address], [place] [address] 15 Jan, 2014 [facility] [address] [id number] [address] [place] [address], [place] [address] Jan, [facility] [address] [id number] [place] [address] Dec, [facility] [address] [id number] [address] [place] [address], [place] [address] Dec, [facility] [address] [id number] [address] [place] [address], [place] [address] Dec, [facility] [address] [id number] [address] [place] [address], [place] [address] Dec, [facility] [address] [id number] [address] [place] [address], [place] [address] Dec, [facility] [address] [id number] [address] [place] [address], [place] [address] Dec, [facility] [address] [id number] [address] [place] [address], [place] [address] Nov, [facility] [address] [id number] [address] [place] [address], [place] [address] Nov, [facility] [address] [id number] [address] [place] [address], [place] [address] Nov, [facility] [address] [id number] [address] [place] [address], [place] [address] Nov, [facility] [address] [id number] [address] [place] [address], [place] [address] October, [facility] [address] [id number] [address] [place] [address], [place] [address] October, [facility] [address] [id number] [address] [place] [address], [place] [address] October, [facility] [address] [id number] [address] [place] [address], [place] [address] October, [facility] [address] [id number] [address] [place] [address], [place] [address] October, [facility] [address] [id number] [address] [place] [address], [place] [address] October, [facility] [address] [id number] [address] [place] [address], [place] [address] October, [facility] [address] [id number] [address] [place] [address], [place] [address] October, [facility] [address] [id number] [address] [place] [address], [place] [address] October, [facility] [address] [id number] [address] [place] [address], [place] [address] October, [facility] [address] [id number] [address] [place] [address], [place] [address] October, [facility] [address] [id number] [address] [place] [address], [place] [address] October, [facility] [address] [id number] [address] [place] [address], [place] [address] October, [facility] [address] [id number] [address] [place] [address], [place] [address] October, [facility] [address] [id number] [address] [place] [address], [place] [address] October, [facility] [address] [id number] [address] [place] [address], [place] [address] October, [facility] [address] [id number] [address] [place] [address], [place] [address] Sep, [facility] [address] [id number] [address] [place] [address], [place] [address] Sep, [facility] [address] [id number] [address] [place] [address], [place] [address] Sep, [facility] [address] [id number] [address] [place] [address], [place] [address] Sep, [facility] [address] [id number] [address] [place] [address], [place] [address] Sep, [facility] [address] [id number] [address] [place] [address], [place] [address] Sep, [facility] [address] [id number] [address] [place] [address], [place] [address] Aug, [facility] [address] [id number] [address] [place] [address], [place] [address] Aug, [facility] [address] [id number] [address] [place] [address], [place] [address] Aug, [facility] [address] [id number] [address] [place] [address], [place] [address] Aug, [facility] [address] [id number] [address] [place] [address], [place] [address] Aug, [facility] [address] [id number] [address] [place] [address], [place] [address] Aug, [facility] [address] [id number] [address] [place] [address], [place] [address] Jul, [facility] [address] [id number] [address] [place] [address], [place] [address] Jul, [facility] [address] [id number] [address] [place] [address], [place] [address] Jul, [facility] [address] [id number] [address] [place] [address], [place] [address] Jul, [facility] [address] [id number] [address] [place] [address], [place] [address] Jun, [facility] [address] [id number] [address] [place] [address], [place] [address] Jun, [facility] [address] [id number] [address] [place] [address], [place] [address] May, [facility] [address] [id number] [address] [place] [address], [place] [address] May, [facility] [address] [id number] [place] [address] 10 May, 2013 [facility] [address] [id number] [address] [place] [address], [place] [address] May, [facility] [address] [id number] [address] [place] [address] May, [facility] [address] [id number] [address] [place] [id number] Apr, [facility] [address] [id number] [address] [place] [phone] Apr, [facility] [address] [id number] [address] [place] [address], [place] [address] Apr, [facility] [address] [id number] [address] [place] [phone] Apr, [facility] [address] [id number] [address] [place] [id number] Apr, [facility] [address] [id number] [address] [place] [id number] Apr, [facility] [address] [id number] [address] [place] [id number] 15 Mar, 2013 [facility] [address] [id number] [address] [place] [id number] 15 Mar, 2013 [facility] [address] [id number] [address] [place] [id number] 14 Mar, 2013 [facility] [address] [id number] [address] [place] [id number] 14 Mar, 2013 [facility] [address] [id number] [address] [place] [id number] 11 Mar, 2013 [facility] [address] [id number] [address] [place] [id number] 11 Mar, 2013 [facility] [address] [id number] [address] [place] [phone] 23 Feb, 2013 [facility] [address] [id number] [address] [place] [address], [place] [address] Feb, [facility] [address] [id number] [address] [place] [address], [place] [address] Feb, [facility] [address] [id number] [address] [place] [address], [place] [address] Jan, [facility] [address] [id number] [address] [place] [address], [place] [address] Jan, [facility] [address] [id number] [address] [place] [address], [place] [address] Jan, [facility] [address] [id number] [address] [place] [address], [place] [address] Jan, [facility] [address] [id number] [address] [place] [address], [place] [address] Jan, [facility] [address] [id number] [address] [place] [address], [place] [address] Jan, [facility] [address] [id number] [address] [place] [address], [place] [address] Dec, [facility] [address] [id number] [address] [place] [address], [place] [address] Dec, [facility] [address] [id number] [address] [place] [address], [place] [address] Dec, [facility] [address] [id number] [address] [place] [address], [place] [address] Dec, [facility] [address] [id number] [address] [place] [address], [place] [address] Dec, [facility] [address] [id number] [address] [place] [address], [place] [address] Dec, [facility] [address] [id number] [address] [place] [address], [place] [address] Nov, [facility] [address] [id number] [address] [place] [address], [place] [address] Nov, [facility] [address] [id number] [address] [place] [address], [place] [address] 18 Nov, 2012 [facility] [address] [id number] [address] [place] [address], [place] [address] Nov, [facility] [address] [id number] [address] [place] [address], [place] [address] Nov, [facility] [address] [id number] [address] [place] [address], [place] [address] Nov, [facility] [address] [id number] [address] [place] [address], [place] [address] October, [facility] [address] [id number] [address] [place] [address], [place] [address] October, [facility] [address] [id number] [address] [place] [address], [place] [address] October, [facility] [address] [id number] [address] [place] [address], [place] [address] October, [facility] [address] [id number] [address] [place] [address], [place] [address] October, [facility] [address] [id number] [address] [place] [address], [place] [address] Sep, [facility] [address] [id number] [address] [place] [address], [place] [address] Sep, [facility] [address] [id number] [address] [place] [address], [place] [address] Sep, [facility] [address] [id number] [address] [place] [address], [place] [address] Sep, [facility] [address] [id number] [address] [place] [address], [place] [address] Sep, [facility] [address] [id number] [address] [place] [address], [place] [address] Aug, [facility] [address] [id number] [address] [place] [address], [place] [address] 07 Aug, 2012 [facility] [address] [id number] [address] [place] [address], [place] [address] 04 Aug, 2012 [facility] [address] [id number] [address] [place] [address], [place] [address] 21 Jul, 2012 [facility] [address] [id number] [address] [place] [address], [place] [address] 20 Jul, 2012 [facility] [address] [id number] [address] [place] [address], [place] [address] 11 Jul, 2012 [facility] [address] [id number] [address] [place] [address], [place] [address] 08 Jul, 2012 [facility] [address] [id number] [address] [place] [address], [place] [address] 06 Jul, 2012 [facility] [address] [id number] [address] [place] [address], [place] [address] 05 Jul, 2012 [facility] [address] [id number] [address] [place] [address], [place] [address] 15 Jun, 2012 [facility] [address] [id number] [address] [place] [address], [place] [address] 16 Apr, 2012 [facility] [address] [id number] [address] [place] [address], [place] [address] 16 Apr, 2012 [facility] [address] [id number] [address] [place] [address], [place] [address] Apr, [facility] [address] [id number] [address] [place] [address], [place] [address] Apr, [facility] [address] [id number] [address] [place] [address], [place] [address] Mar, [facility] [address] [id number] [address] [place] [address], [place] [address] Mar, [facility] [address] [id number] [address] [place] [address], [place] [address] Mar, [facility] [address] [id number] [address] [place] [address], [place] [address] Mar, [facility] [address] [id number] [address] [place] [address], [place] [address] Mar, [facility] [address] [id number] [address] [place] [address], [place] [address] Feb, [facility] [address] [id number] [address] [place] [address], [place] [address] Jan, [facility] [address] [id number] [address] [place] [address], [place] [address] Jan, [facility] [address] [id number] [address] [place] [address], [place] [address] Jan, [facility] [address] [id number] [address] [place] [address], [place] [address] Dec, [facility] [address] [id number] [address] [place] [address], [place] [address] Nov, [facility] [address] [id number] [address] [place] [address], [place] [address] Nov, [facility] [address] [id number] [address] [place] [address], [place] [address] Nov, [facility] [address] [id number] [address] [place] [address], [place] [address] Nov, [facility] [address] [id number] [address] [place] [address], [place] [address] Nov, [facility] [address] [id number] [address] [place] [address], [place] [address] October, [facility] [address] [id number] [address] [place] [address], [place] [address] October, [facility] [address] [id number] [address] [place] [address], [place] [address] October, [facility] [address] [id number] [address] [address] October, [facility] [address] [facility] [id number] [address] [address] October, IMMUNIZATIONS No Known Immunizations SOCIAL HISTORY [...]
--- OUTSIDE RECORDS SUMMARY | 2020-01-25 07:50 | XMS REPORT ---
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41 Active 719426791 ALLERGIES No Information ENCOUNTERS Encounter Location Date Diagnosis [facility] [address] [facility] [id number] [address] [place] [address] Nov, Inflammatory spondylopathy o f sacral region M46.98 [facility] [address] [facility] [id number] [address] [place] [address] Nov, [facility] [address] [facility] [id number] [address] [place] [address] 14 Nov, 2018 Labyrinthitis of left ear H8 3.02 [facility] [address] [id number] [address] [place] [address] Nov, Arthritis M19.90 [facility] [address] [id number] [address] [place] [address] Sep, Arthritis M19.90 [facility] [address] [facility] [id number] [address] [place] [address] Sep, Renal insufficiency N28.9 an d Unspecified kidney failure N19 [facility] [address] [id number] [address] [place] [address] Sep, Renal insufficiency N28.9 an d Unspecified kidney failure N19 [facility] [address] [id number] [address] [place] [address] Sep, Arthritis M19.90 [facility] [address] [id number] [address] [place] [address] Aug, Exercise counseling Z71.82 [facility] [address] [id number] [address] [place] [address] Aug, [facility] [address] [facility] [id number] [address] [place] [address] Jul, Labyrinthitis of left ear H8 3.02 [facility] [address] [facility] [id number] [address] [place] [address] Jul, Labyrinthitis of left ear H8 3.02 [facility] [address] [id number] [address] [place] [address] Jul, Exercise counseling Z71.82 [facility] [address] [facility] [id number] [address] [place] [address] 18 Jul, 2018 [facility] [address] [facility] [id number] [address] [place] [address] 14 Jul, 2018 Arthritis M19.90 [facility] [address] [facility] [id number] [address] [place] [address] 13 Jul, 2018 Encounter for Medicare annua l wellness exam Z00.00 ; Chronic kidney disease, stage 4 (severe) N18.4 ; Body mass index (BMI) of 40.0-44.9 in adult Z68.41 ; Hyperparathyroidism E21.3 and BMI 40.0-44.9, adult Z68.41 [facility] [address] [place] [id number] [address] [place] [address] 13 Jul, 2018 Encounter for Medicare annua l wellness exam Z00.00 ; Chronic kidney disease, stage 4 (severe) N18.4 ; Hyperparathyroidism E21.3 ; Body mass index (BMI) of 40.0-44.9 in adult Z68.41 and Encounter for immunization Z23 [place] [address] [place] [address] 11 Jul, 2018 Tail bone pain M53.3 [place] [address] [address] 29 Jun, 2018 Exercise counseling Z71.82 [place] [address] [address] Jun, Labyrinthitis of left ear H8 3.02 [place] [address] [place] [id number] [address] [place] [address] Jun, Tail bone pain M53.3 ; Irrit able bowel syndrome with both constipation and diarrhea K58.2 and Dysfunction of left eustachian tube H69.82 [place] [address] [place] [id number] [address] [place] [address] Jun, Exercise counseling Z71.82 [place] [address] [facility] [id number] [address] [place] [address] Jun, Arthritis M19.90 [place] [address] [place] [id number] [place] [address] 16 Jun, 2018 Irritable bowel syndrome wit h both constipation and diarrhea K58.2 ; Tail bone pain M53.3 and Dysfunction of left eustachian tube H69.82 [facility] [address] [id number] [address] [place] [address] Jun, Exercise counseling Z71.82 [facility] [address] [id number] [address] [place] [address] Jun, Exercise counseling Z71.82 [facility] [address] [id number] [address] [place] [address] Jun, Labyrinthitis of left ear H8 3.02 [facility] [address] [id number] [address] [place] [address] May, Exercise counseling Z71.82 [facility] [address] [id number] [address] [place] [address] May, Arthritis M19.90 [facility] [address] [id number] [address] [place] [address] May, Exercise counseling Z71.82 [facility] [address] [id number] [address] [place] [address] May, Exercise counseling Z71.82 [facility] [address] [id number] [address] [place] [address] May, Labyrinthitis of left ear H8 3.02 [facility] [address] [id number] [address] [place] [address] May, Exercise counseling Z71.82 [facility] [address] [id number] [address] [place] [address] Apr, Arthritis M19.90 [facility] [address] [id number] [address] [place] [address] Apr, Exercise counseling Z71.82 [facility] [address] [id number] [address] [place] [address] Apr, Exercise counseling Z71.82 [facility] [address] [id number] [address] [place] [address] Apr, Primary osteoarthritis of le ft knee M17.12 [facility] [address] [place] [id number] [address] [place] [address] Apr, Labyrinthitis of left ear H8 3.02 [facility] [address] [place] [id number] [address] [place] [address] Mar, Arthritis M19.90 [place] [address] [address] Mar, [place] [address] [place] [id number] [place] [address] Mar, Chronic kidney disease, stag e 4 (severe) N18.4 [place] [address] [place] [id number] [place] [address] Mar, Chronic kidney disease, stag e 4 (severe) N18.4 [place] [address] [address] Mar, Labyrinthitis of left ear H8 3.02 [place] [address] [place] [id number] [address] [place] [address] Mar, Chronic kidney disease, stag e 4 (severe) N18.4 ; Knee pain, left anterior M25.562 ; Deficiency of other specified B group vitamins E53.8 and Encounter for immunization Z23 [place] [address] [place] [id number] [address] [place] [address] Mar, Arthritis M19.90 [place] [address] [place] [id number] [address] [place] [address] Feb, Labyrinthitis of left ear H8 3.02 [place] [address] [place] [id number] [place] [address] Feb, Arthritis M19.90 [place] [address] [place] [id number] [address] [place] [address] Jan, Labyrinthitis of left ear H8 3.02 [place] [address] [place] [id number] [address] [place] [address] Jan, Arthritis M19.90 [place] [address] [address] Dec, Labyrinthitis of left ear H8 3.02 [place] [address] [address] Nov, Arthritis M19.90 [place] [address] [address] Nov, Labyrinthitis of left ear H8 3.02 [place] [address] [address] Nov, BMI 40.0-44.9, adult Z68.41 ; Chronic kidney disease, stage 4 (severe) N18.4 and Acute right-sided thoracic back pain M54.6 [place] [address] [address] October, Labyrinthitis of left ear H8 3.02 and Arthritis M19.90 [place] [address] [address] Sep, BPV (benign positional verti go), bilateral H81.13 ; Dysfunction of left eustachian tube H69.82 and BMI 40.0-44.9, adult Z68.41 [place] [address] [address] Sep, Labyrinthitis of left ear H8 3.02 and Arthritis M19.90 [place] [address] [address] Sep, [place] [address] [address] Sep, [place] [address] [address] Sep, Chronic kidney disease, stag e 4 (severe) N18.4 [facility] [address] [facility] [id number] [address] [place] [address] Sep, Chronic kidney disease, stag e 4 (severe) N18.4 [facility] [address] [id number] [address] [place] [address] Aug, Labyrinthitis of left ear H8 3.02 and Arthritis M19.90 [facility] [address] [id number] [address] [place] [address] Aug, [facility] [address] [id number] [address] [place] [address] Jul, [facility] [address] [facility] [id number] [address] [place] [address] Jul, Arthritis M19.90 and Labyrin thitis of left ear H83.02 [facility] [address] [place] [id number] [address] [place] [address] Jul, [facility] [address] [facility] [id number] [address] [place] [address] Jun, [facility] [address] [facility] [id number] [address] [place] [address] Jun, Arthritis M19.90 and Labyrin thitis of left ear H83.02 [facility] [address] [facility] [id number] [address] [place] [address] Jun, Pre-op evaluation Z01.818 ; BMI 40.0-44.9, adult Z68.41 and Encounter for immunization Z23 [facility] [address] [facility] [id number] [address] [place] [address] May, Arthritis M19.90 and Labyrin thitis of left ear H83.02 [facility] [address] [facility] [id number] [address] [place] [address] Apr, Labyrinthitis of left ear H8 3.02 [facility] [address] [id number] [address] [place] [address] Apr, Arthritis M19.90 and Labyrin thitis of left ear H83.02 [facility] [address] [facility] [id number] [address] [place] [address] 10 Mar, 2017 Arthritis M19.90 and Labyrin thitis of left ear H83.02 [facility] [address] [facility] [id number] [address] [place] [address] 05 Mar, 2017 Chronic kidney disease, stag e 4 (severe) N18.4 [facility] [address] [facility] [id number] [address] [place] [address] Feb, Arthritis M19.90 and Labyrin thitis of left ear H83.02 [place] [address] [facility] [id number] [address] [place] [address] Jan, Labyrinthitis of left ear H8 3.02 and Deficiency of other specified B group vitamins E53.8 [place] [address] [facility] [id number] [address] [place] [address] Dec, Arthritis M19.90 [place] [address] [facility] [id number] [address] [place] [address] Dec, BPV (benign positional verti go), bilateral H81.13 [place] [address] [facility] [id number] [address] [place] [address] Dec, [facility] [address] [facility] [id number] [address] [place] [address] Dec, [facility] [address] [id number] [address] [place] [address] Dec, [facility] [address] [facility] [id number] [address] [place] [address] Nov, Arthritis M19.90 and Deficie ncy of other specified B group vitamins E53.8 [place] [address] [facility] [id number] [address] [place] [address] Nov, Arthritis M19.90 [facility] [address] [id number] [address] [place] [address] Nov, Hyperparathyroidism E21.3 [facility] [address] [id number] [address] [place] [address] October, [facility] [address] [facility] [id number] [address] [place] [address] October, Hyperparathyroidism E21.3 [facility] [address] [facility] [id number] [address] [place] [address] October, [facility] [address] [facility] [id number] [address] [place] [address] October, Renal insufficiency N28.9 an d Hyperparathyroidism E21.3 [facility] [address] [facility] [id number] [address] [place] [address] October, [facility] [address] [facility] [id number] [address] [place] [address] October, Renal insufficiency N28.9 an d Hyperparathyroidism E21.3 [facility] [address] [facility] [id number] [address] [place] [address] October, Arthritis M19.90 [facility] [address] [facility] [id number] [address] [place] [address] Sep, [facility] [address] [facility] [id number] [address] [place] [address] Sep, Lumbar neuritis M54.16 ; Tho racic abscess J86.9 and Deficiency of other specified B group vitamins E53.8 [facility] [address] [facility] [id number] [address] [place] [address] Sep, [facility] [address] [facility] [id number] [address] [place] [address] Aug, Arthritis M19.90 [facility] [address] [facility] [id number] [address] [place] [address] Aug, Hyperparathyroidism E21.3 [facility] [address] [facility] [id number] [address] [place] [address] Aug, Hyperparathyroidism E21.3 [facility] [address] [facility] [id number] [address] [place] [address] Aug, Arthritis M19.90 [facility] [address] [facility] [id number] [address] [place] [address] Jul, Mass of throat R22.1 [facility] [address] [facility] [id number] [address] [place] [address] Jul, [facility] [address] [facility] [id number] [address] [place] [address] Jul, Arthritis M19.90 [facility] [address] [facility] [id number] [address] [place] [address] Jun, Arthritis M19.90 [facility] [address] [facility] [id number] [address] [place] [address] Jun, [facility] [address] [facility] [id number] [address] [place] [address] Jun, Renal insufficiency N28.9 an d 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 [facility] [address] [facility] [id number] [address] [place] [address] 05 Jun, 2016 Medicare welcome exam Z00.00 ; Encounter for immunization Z23 ; Arthritis M19.90 ; Medicare annual wellness visit, initial Z00.00 ; Medicare annual wellness visit, subsequent Z00.00 and Deficiency of other specified B group vitamins E53.8 [facility] [address] [facility] [id number] [address] [place] [address] May, Renal insufficiency N28.9 an d 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 [facility] [address] [facility] [id number] [address] [place] [address] May, Renal insufficiency N28.9 [facility] [address] [facility] [id number] [address] [place] [address] 16 May, 2016 Renal insufficiency N28.9 [facility] [address] [facility] [id number] [address] [place] [address] 14 May, 2016 [facility] [address] [facility] [id number] [address] [place] [address] 16 Apr, 2016 [facility] [address] [facility] [id number] [address] [place] [address] 16 Apr, 2016 [facility] [address] [facility] [id number] [address] [place] [address] 14 Apr, 2016 Mass of throat R22.1 [facility] [address] [facility] [id number] [address] [place] [address] 10 Apr, 2016 [facility] [address] [facility] [id number] [address] [place] [address] Apr, Mass of throat R22.1 [facility] [address] [facility] [id number] [address] [place] [address] 04 Apr, 2016 Mass of throat R22.1 [facility] [address] [facility] [id number] [address] [place] [address] Mar, [facility] [address] [facility] [id number] [address] [place] [address] Mar, [facility] [address] [facility] [id number] [address] [place] [address] Mar, [facility] [address] [place] [id number] [address] [place] [address] 24 Mar, 2016 Parathyroid abnormality E21. 5 and Encounter for immunization Z23 [facility] [address] [facility] [id number] [address] [place] [address] 17 Mar, 2016 [facility] [address] [facility] [id number] [address] [place] [address] 11 Mar, 2016 [facility] [address] [place] [id number] [address] [place] [address] Feb, Renal insufficiency N28.9 an d Hyperparathyroidism E21.3 [facility] [address] [facility] [id number] [address] [place] [address] Feb, [facility] [address] [facility] [id number] [address] [place] [address] 15 Feb, 2016 Renal insufficiency N28.9 an d Hyperparathyroidism E21.3 [place] [address] [facility] [id number] [address] [place] [address] 14 Feb, 2016 [facility] [address] [facility] [id number] [address] [place] [address] Feb, [place] [address] [address] Feb, [place] [address] [address] Jan, [place] [address] [address] Jan, Arthritis M19.90 ; Lumbago w ith sciatica, right side M54.41 and Other chronic pain G89.29 [place] [address] [address] Jan, [place] [address] [address] Dec, Arthritis M19.90 ; Lumbago w ith sciatica, right side M54.41 and Other chronic pain G89.29 [place] [id number] [place] [address] 16 Nov, 2015 Deficiency of other specifie d B group vitamins E53.8 ; Primary insomnia F51.01 ; Mood disorder F39 and Lumbago with sciatica, right side M54.41 [place] [address] [facility] [id number] [address] [place] [address] Nov, Hyperparathyroidism E21.3 [place] [address] [place] [id number] [address] [place] [address] Nov, Unspecified kidney failure N 19 and Hyperparathyroidism E21.3 [facility] [address] [address] October, Hyperparathyroidism E21.3 [facility] [address] [address] October, [facility] [address] [address] October, Hyperparathyroidism E21.3 [facility] [address] [address] October, Hyperparathyroidism E21.3 [facility] [address] [address] Sep, Hyperparathyroidism E21.3 ; Hypercholesterolemia E78.0 and Arthritis M19.90 [facility] [address] [address] Aug, [facility] [address] [address] Aug, Deficiency of other specifie d B group vitamins E53.8 [facility] [address] [address] Aug, [facility] [address] [address] Jul, Urinary frequency R35.0 [facility] [address] [address] Jul, Urinary frequency R35.0 [facility] [address] [address] Jul, [facility] [address] [address] Jul, [facility] [address] [address] Jun, Pain in left knee M25.562 [facility] [address] [id number] [address] [place] [address] Jun, [facility] [address] [id number] [address] [place] [address] May, Swelling of left knee joint M25.462 [facility] [address] [id number] [address] [place] [id number] May, [facility] [address] [id number] [address] [place] [id number] May, [facility] [address] [id number] [address] [place] [id number] May, [facility] [address] [facility] [id number] [address] [place] [id number] Apr, Renal insufficiency N28.9 an d Chronic kidney disease, stage 4 (severe) N18.4 [facility] [address] [facility] [id number] [address] [place] [id number] Apr, Unspecified kidney failure N 19 [facility] [address] [facility] [id number] [address] [place] [id number] Apr, Unspecified kidney failure N 19 [facility] [address] [facility] [id number] [address] [place] [id number] Apr, [facility] [address] [facility] [id number] [address] [place] [id number] Apr, Hyperparathyroidism, unspeci fied 252.00 [facility] [address] [facility] [id number] [address] [place] [id number] Apr, [facility] [address] [facility] [id number] [address] [place] [id number] Mar, [facility] [address] [facility] [id number] [address] [place] [id number] Mar, [facility] [address] [facility] [id number] [address] [place] [id number] Mar, Hyperparathyroidism, unspeci fied 252.00 [facility] [address] [id number] [address] [place] [id number] Feb, [facility] [address] [facility] [id number] [address] [place] [id number] Feb, Otalgia 388.70 [facility] [address] [facility] [id number] 16 [place] [id number] Feb, [facility] [address] [id number] [address] [place] [address] Feb, [facility] [address] [facility] [id number] [address] [place] [address] Jan, [facility] [address] [facility] [id number] [address] [place] [address] Jan, Hyperparathyroidism, unspeci fied 252.00 [facility] [address] [facility] [id number] [address] [place] [address] Jan, [facility] [address] [facility] [id number] [address] [place] [address] Jan, Other B-complex deficiencies 266.2 and Hyperparathyroidism, unspecified 252.00 [facility] [address] [facility] [id number] [address] [place] [address] Jan, [facility] [address] [facility] [id number] [address] [place] [address] Jan, [facility] [address] [facility] [id number] [address] [place] [address] Jan, [facility] [address] [facility] [id number] [address] [place] [address] Dec, [facility] [address] [facility] [id number] [address] [place] [address] Dec, [facility] [address] [facility] [id number] [address] [place] [address] Dec, [facility] [address] [id number] [address] [place] [address] 15 Nov, 2014 Routine check-up V70.0 and P re-op exam V72.84 [facility] [address] [id number] [address] [place] [address] 12 Nov, 2014 [facility] [address] [id number] [address] [place] [address] Nov, [facility] [address] [id number] [address] [place] [address] October, [facility] [address] [id number] [address] [place] [address] October, Other B-complex deficiencies 266.2 [facility] [address] [id number] [address] [place] [address] October, [facility] [address] [id number] [address] [place] [address] 14 Sep, 2014 [facility] [address] [id number] [address] [place] [address] Sep, [facility] [address] [id number] [address] [place] [address] 20 Aug, 2014 [facility] [address] [id number] [address] [place] [id number] 20 Aug, 2014 [facility] [address] [id number] [address] [place] [address] 17 Aug, 2014 [facility] [address] [id number] [address] [place] [address] 17 Aug, 2014 [facility] [address] [id number] [address] [place] [address] Aug, [facility] [address] [id number] [address] [place] [address] Aug, [facility] [address] [id number] [address] [place] [address] 18 Jul, 2014 [facility] [address] [id number] [address] [place] [address], [place] [address] Jul, 2014 [facility] [address] [id number] [address] [place] [address], [place] [address] Jul, 2014 [facility] [address] [id number] [address] [place] [address], [place] [address] Jul, 2014 [facility] [address] [id number] [address] [place] [address], [place] [address] Jul, 2014 [facility] [address] [id number] [address] [place] [address], [place] [address] Jul, 2014 [facility] [address] [id number] [address] [place] [address], [place] [address] Jul, 2014 [facility] [address] [id number] [address] [place] [address], [place] [address] Jul, 2014 [facility] [address] [id number] [address] [place] [address], [place] [address] Jul, 2014 [facility] [address] [id number] [address] [place] [address], [place] [address] Jul, 2014 [facility] [address] [id number] [address] [place] [address], [place] [address] Jul, 2014 [facility] [address] [id number] [address] [place] [address], [place] [address] Jul, 2014 [facility] [address] [id number] [address] [place] [address], [place] [address] Jul, 2014 [facility] [address] [id number] [address] [place] [address], [place] [address] Jul, 2014 [facility] [address] [id number] [address] [place] [address], [place] [address] Jun, [facility] [address] [id number] [address] [place] [address], [place] [address] Jun, [facility] [address] [id number] [address] [place] [address], [place] [address] Jun, [facility] [address] [id number] [address] [place] [address], [place] [address] Jun, [facility] [address] [id number] [address] [place] [address], [place] [address] Jun, [facility] [address] [id number] [address] [place] [address], [place] [address] Jun, [facility] [address] [id number] [address] [place] [address], [place] [address] Jun, [facility] [address] [id number] [address] [place] [address], [place] [address] Jun, [facility] [address] [id number] [address] [place] [address], [place] [address] Jun, [facility] [address] [id number] [address] [place] [address], [place] [address] Jun, [facility] [address] [id number] [address] [place] [address], [place] [address] Jun, [facility] [address] [id number] [address] [place] [address], [place] [address] Jun, [facility] [address] [id number] [address] [place] [address], [place] [address] Jun, [facility] [address] [id number] [address] [place] [address], [place] [address] Jun, [facility] [address] [id number] [address] [place] [address], [place] [address] May, [facility] [address] [id number] [address] [place] [address], [place] [address] May, [facility] [address] [id number] [address] [place] [address], [place] [address] May, [facility] [address] [id number] [address] [address] May, [facility] [address] [id number] [address] [place] [address], [place] [address] Apr, [facility] [address] [id number] [address] [place] [address], [place] [address] Apr, [facility] [address] [id number] [address] [place] [address], [place] [address] Apr, [facility] [address] [id number] [address] [place] [address] Apr, [facility] [address] [id number] [address] [place] [address], [place] [address] Apr, [facility] [address] [id number] [address] [place] [address] Apr, [facility] [address] [id number] [address] [place] [address], [place] [address] Mar, [facility] [address] [id number] [address] [place] [address], [place] [address] Mar, [facility] [address] [id number] [address] [place] [address], [place] [address] Mar, [facility] [address] [id number] [address] [place] [address], [place] [address] Mar, [facility] [address] [id number] [address] [place] [address] 15 Mar, 2014 [facility] [address] [id number] [address] [place] [address] 15 Mar, 2014 [facility] [address] [id number] [address] [place] [address], [place] [address] Mar, [facility] [address] [id number] [address] [place] [address], [place] [address] Mar, [facility] [address] [id number] [address] [place] [address] Mar, [facility] [address] [id number] [address] [place] [address], [place] [address] 07 Mar, 2014 [facility] [address] [id number] [address] [place] [address], [place] [address] 07 Mar, 2014 [facility] [address] [id number] [address] [place] [address], [place] [address] 07 Mar, 2014 [facility] [address] [id number] [address] [place] [address], [place] [address] 06 Mar, 2014 [facility] [address] [id number] [address] [place] [address], [place] [address] 26 Feb, 2013 [facility] [address] [id number] [address] [place] [address], [place] [address] 26 Feb, 2014 [facility] [address] [id number] [address] [place] [address], [place] [address] 23 Feb, 2013 [facility] [address] [id number] [address] [place] [address], [place] [address] 23 Feb, 2013 [facility] [address] [id number] [address] [place] [address], [place] [address] 19 Feb, 2014 [facility] [address] [id number] [address] [place] [address], [place] [address] 19 Feb, 2014 [facility] [address] [id number] [address] [place] [address], [place] [address] 13 Feb, 2014 [facility] [address] [id number] [address] [place] [address], [place] [address] 13 Feb, 2014 [facility] [address] [id number] [address] [place] [address], [place] [address] 12 Feb, 2014 [facility] [address] [id number] [address] [place] [address], [place] [address] 12 Feb, 2014 [facility] [address] [id number] [address] [place] [address], [place] [address] 15 Jan, 2014 [facility] [address] [id number] [address] [place] [address], [place] [address] Jan, [facility] [address] [id number] [facility] [place] [address] Dec, [facility] [address] [id number] [address] [place] [address], [place] [address] Dec, [facility] [address] [id number] [address] [place] [address], [place] [address] Dec, [facility] [address] [id number] [address] [place] [address], [place] [address] Dec, [facility] [address] [id number] [address] [place] [address], [place] [address] Dec, [facility] [address] [id number] [address] [place] [address], [place] [address] Dec, [facility] [address] [id number] [address] [place] [address], [place] [address] Nov, [facility] [address] [id number] [address] [place] [address], [place] [address] Nov, [facility] [address] [id number] [address] [place] [address], [place] [address] Nov, [facility] [address] [id number] [address] [place] [address], [place] [address] Nov, [facility] [address] [id number] [address] [place] [address], [place] [address] October, [facility] [address] [id number] [address] [place] [address], [place] [address] October, [facility] [address] [id number] [address] [place] [address], [place] [address] October, [facility] [address] [id number] [address] [place] [address], [place] [address] October, [facility] [address] [id number] [address] [place] [address], [place] [address] October, [facility] [address] [id number] [address] [place] [address], [place] [address] October, [facility] [address] [id number] [address] [place] [address], [place] [address] October, [facility] [address] [id number] [address] [place] [address], [place] [address] October, [facility] [address] [id number] [address] [place] [address], [place] [address] October, [facility] [address] [id number] [address] [place] [address], [place] [address] October, [facility] [address] [id number] [address] [place] [address], [place] [address] October, [facility] [address] [id number] [address] [place] [address], [place] [address] October, [facility] [address] [id number] [address] [place] [address], [place] [address] October, [facility] [address] [id number] [address] [place] [address], [place] [address] October, [facility] [address] [id number] [address] [place] [address], [place] [address] October, [facility] [address] [id number] [address] [place] [address], [place] [address] October, [facility] [address] [id number] [address] [place] [address], [place] [address] Sep, [facility] [address] [id number] [address] [place] [address], [place] [address] Sep, [facility] [address] [id number] [address] [place] [address], [place] [address] Sep, [facility] [address] [id number] [address] [place] [address], [place] [address] Sep, [facility] [address] [id number] [address] [place] [address], [place] [address] Sep, [facility] [address] [id number] [address] [place] [address], [place] [address] Sep, [facility] [address] [id number] [address] [place] [address], [place] [address] Aug, [facility] [address] [id number] [address] [place] [address], [place] [address] Aug, [facility] [address] [id number] [address] [place] [address], [place] [address] Aug, [facility] [address] [id number] [address] [place] [address], [place] [address] Aug, [facility] [address] [id number] [address] [place] [address], [place] [address] Aug, [facility] [address] [id number] [address] [place] [address], [place] [address] Aug, [facility] [address] [id number] [address] [place] [address], [place] [address] Jul, [facility] [address] [id number] [address] [place] [address], [place] [address] Jul, [facility] [address] [id number] [address] [place] [address], [place] [address] Jul, [facility] [address] [id number] [address] [place] [address], [place] [address] Jul, [facility] [address] [id number] [address] [place] [address], [place] [address] Jun, [facility] [address] [id number] [address] [place] [address], [place] [address] Jun, [facility] [address] [id number] [address] [place] [address], [place] [address] May, [facility] [address] [id number] [address] [place] [address], [place] [address] May, [facility] [address] [id number] [address] [address] 10 May, 2013 [facility] [address] [id number] [address] [place] [address], [place] [address] May, [facility] [address] [id number] [address] [place] [address] May, [facility] [address] [id number] [address] [place] [address] Apr, [facility] [address] [id number] [address] [place] [address] Apr, [facility] [address] [id number] [address] [place] [address], [place] [address] Apr, [facility] [address] [id number] [address] [place] [address] Apr, [facility] [address] [id number] [address] [place] [address] Apr, [facility] [address] [id number] [address] [place] [address] Apr, [facility] [address] [id number] [address] [place] [address] 15 Mar, 2013 [facility] [address] [id number] [address] [place] [address] 15 Mar, 2013 [facility] [address] [id number] [address] [place] [address] 14 Mar, 2013 [facility] [address] [id number] [address] [place] [address] 14 Mar, 2013 [facility] [address] [id number] [address] [place] [address] 11 Mar, 2013 [facility] [address] [id number] [address] [place] [address] 11 Mar, 2013 [facility] [address] [id number] [address] [place] [address] 23 Feb, 2013 [facility] [address] [id number] [address] [place] [address], [place] [address] Feb, [facility] [address] [id number] [address] [place] [address], [place] [address] Feb, [facility] [address] [id number] [address] [place] [address], [place] [address] Jan, [facility] [address] [id number] [address] [place] [address], [place] [address] Jan, [facility] [address] [id number] [address] [place] [address], [place] [address] Jan, [facility] [address] [id number] [address] [place] [address], [place] [address] Jan, [facility] [address] [id number] [address] [place] [address], [place] [address] Jan, [facility] [address] [id number] [address] [place] [address], [place] [address] Jan, [facility] [address] [id number] [address] [place] [address], [place] [address] Dec, [facility] [address] [id number] [address] [place] [address], [place] [address] Dec, [facility] [address] [id number] [address] [place] [address], [place] [address] Dec, [facility] [address] [id number] [address] [place] [address], [place] [address] Dec, [facility] [address] [id number] [address] [place] [address], [place] [address] Dec, [facility] [address] [id number] [address] [place] [address], [place] [address] Dec, [facility] [address] [id number] [address] [place] [address], [place] [address] Nov, [facility] [address] [id number] [address] [place] [address], [place] [address] Nov, [facility] [address] [id number] [address] [place] [address], [place] [address] 18 Nov, 2012 [facility] [address] [id number] [address] [place] [address], [place] [address] Nov, [facility] [address] [id number] [address] [place] [address], [place] [address] Nov, [facility] [address] [id number] [address] [place] [address], [place] [address] Nov, [facility] [address] [id number] [address] [place] [address], [place] [address] October, [facility] [address] [id number] [address] [place] [address], [place] [address] October, [facility] [address] [id number] [address] [place] [address], [place] [address] October, [facility] [address] [id number] [address] [place] [address], [place] [address] October, [facility] [address] [id number] [address] [place] [address], [place] [address] October, [facility] [address] [id number] [address] [place] [address], [place] [address] Sep, [facility] [address] [id number] [address] [place] [address], [place] [address] Sep, [facility] [address] [id number] [address] [place] [address], [place] [address] Sep, [facility] [address] [id number] [address] [place] [address], [place] [address] Sep, [facility] [address] [id number] [address] [place] [address], [place] [address] Sep, [facility] [address] [id number] [address] [place] [address], [place] [address] Aug, [facility] [address] [id number] [address] [place] [address], [place] [address] 07 Aug, 2012 [facility] [address] [id number] [address] [place] [address], [place] [address] 04 Aug, 2012 [facility] [address] [id number] [address] [place] [address], [place] [address] 21 Jul, 2012 [facility] [address] [id number] [address] [place] [address], [place] [address] 20 Jul, 2012 [facility] [address] [id number] [address] [place] [address], [place] [address] 11 Jul, 2012 [facility] [address] [id number] [address] [place] [address], [place] [address] 08 Jul, 2012 [facility] [address] [id number] [address] [place] [address], [place] [address] 06 Jul, 2012 [facility] [address] [id number] [address] [place] [address], [place] [address] 05 Jul, 2012 [facility] [address] [id number] [address] [place] [address], [place] [address] 15 Jun, 2012 [facility] [address] [id number] [address] [place] [address], [place] [address] 16 Apr, 2012 [facility] [address] [id number] [address] [place] [address], [place] [address] 16 Apr, 2012 [facility] [address] [id number] [address] [place] [address], [place] [address] Apr, [facility] [address] [id number] [address] [place] [address], [place] [address] Apr, [facility] [address] [id number] [address] [place] [address], [place] [address] Mar, [facility] [address] [id number] [address] [place] [address], [place] [address] Mar, [facility] [address] [id number] [address] [place] [address], [place] [address] Mar, [facility] [address] [id number] [address] [place] [address], [place] [address] Mar, [facility] [address] [id number] [address] [place] [address], [place] [address] Mar, [facility] [address] [id number] [address] [place] [address], [place] [address] Feb, [facility] [address] [id number] [address] [place] [address], [place] [address] Jan, [facility] [address] [id number] [address] [place], [place] [address], [place] [address] Jan, [facility] [address] [id number] [address] [place] [address], [place] [address] Jan, [facility] [address] [id number] [address] [place] [address], [place] [address] Dec, [facility] [address] [id number] [address] [place] [address], [place] [address] Nov, [facility] [address] [id number] [address] [place] [address], [place] [address] Nov, [facility] [address] [id number] [address] [place] [address], [place] [address] Nov, [facility] [address] [id number] [address] [place] [address], [place] [address] Nov, [facility] [address] [id number] [address] [place] [address], [place] [address] Nov, [facility] [address] [id number] [address] [place] [address], [place] [address] October, [facility] [address] [id number] [address] [place] [address], [place] [address] October, [facility] [address] [id number] [address] [place] [address], [place] [address] October, [facility] [address] [id number] [address] [address] October, [facility] [address] [facility] [id number] [address] [address] October, IMMUNIZATIONS No Known Immunizations SOCIAL HISTORY [...]
--- OUTSIDE RECORDS SUMMARY | 2020-01-25 07:51 | XMS REPORT ---
Author Author Velma CORDERO Organization [facility] Address [address] [place] [address] Care Team Providers Care Security Site Supervisor Name Role Phone STEPHAN CORDERO Unavailable PROBLEMS Type Condition ICD9-CM Code PSG52-XR Code Onset Dates Condition S tatus SNOMED Code Problem Primary insomnia F51.01 Active 397 2004 Problem Hypercholesteremia E78.0 Active 1 1147999 Problem Corns L84 Active 865472872 Problem Arthritis M19.90 Active 2678863 Problem Hyperparathyroidism E21.3 Active 12534669 Problem 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 Active 40413802 Problem 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41 Active [id number] ALLERGIES No Information ENCOUNTERS Encounter Location Date Diagnosis [facility] [address] [facility] [id number] [address] [place] [phone] Nov, Inflammatory spondylopathy o f sacral region M46.98 [facility] [address] [facility] [id number] [address] [place] [phone] Nov, [facility] [address] [facility] [id number] [address] [place] [phone] 14 Nov, 2018 Labyrinthitis of left ear H8 3.02 [facility] [address] [id number] [address] [place] [phone] Nov, Arthritis M19.90 [facility] [address] [id number] [address] [place] [phone] Sep, Arthritis M19.90 [facility] [address] [facility] [id number] [address] [place] [phone] Sep, Renal insufficiency N28.9 an d Unspecified kidney failure N19 [facility] [address] [id number] [address] [place] [phone] Sep, Renal insufficiency N28.9 an d Unspecified kidney failure N19 [facility] [address] [id number] [address] [place] [phone] Sep, Arthritis M19.90 [facility] [address] [id number] [address] [place] [phone] Aug, Exercise counseling Z71.82 [facility] [address] [id number] [address] [place] [phone] Aug, [facility] [address] [facility] [id number] [address] [place] [phone] Jul, Labyrinthitis of left ear H8 3.02 [facility] [address] [facility] [id number] [address] [place] [phone] Jul, Labyrinthitis of left ear H8 3.02 [facility] [address] [id number] [address] [place] [address] Jul, Exercise counseling Z71.82 [facility] [address] [facility] [id number] [address] [place] [phone] 18 Jul, 2018 [facility] [address] [facility] [id number] [address] [place] [id number] 14 Jul, 2018 Arthritis M19.90 [facility] [address] [facility] [id number] [address] [place] [phone] 13 Jul, 2018 Encounter for Medicare annua l wellness exam Z00.00 ; Chronic kidney disease, stage 4 (severe) N18.4 ; Body mass index (BMI) of 40.0-44.9 in adult Z68.41 ; Hyperparathyroidism E21.3 and BMI 40.0-44.9, adult Z68.41 [facility] [address] [place] [id number] [address] [place] [phone] 13 Jul, 2018 Encounter for Medicare annua l wellness exam Z00.00 ; Chronic kidney disease, stage 4 (severe) N18.4 ; Hyperparathyroidism E21.3 ; Body mass index (BMI) of 40.0-44.9 in adult Z68.41 and Encounter for immunization Z23 [place] [address] [place] [phone] 11 Jul, 2018 Tail bone pain M53.3 [place] [address] [address] 29 Jun, 2018 Exercise counseling Z71.82 [place] [address] [address] Jun, Labyrinthitis of left ear H8 3.02 [place] [address] [place] [id number] [address] [place] [phone] Jun, Tail bone pain M53.3 ; Irrit able bowel syndrome with both constipation and diarrhea K58.2 and Dysfunction of left eustachian tube H69.82 [place] [address] [place] [id number] [address] [place] [phone] Jun, Exercise counseling Z71.82 [place] [address] [facility] [id number] [address] [place] [address] Jun, Arthritis M19.90 [place] [address] [place] [id number] [place] [phone] 16 Jun, 2018 Irritable bowel syndrome wit h both constipation and diarrhea K58.2 ; Tail bone pain M53.3 and Dysfunction of left eustachian tube H69.82 [facility] [address] [id number] [address] [place] [phone] Jun, Exercise counseling Z71.82 [facility] [address] [id number] [address] [place] [phone] Jun, Exercise counseling Z71.82 [facility] [address] [id number] [address] [place] [address] Jun, Labyrinthitis of left ear H8 3.02 [facility] [address] [id number] [address] [place] [address] May, Exercise counseling Z71.82 [facility] [address] [id number] [address] [place] [phone] May, Arthritis M19.90 [facility] [address] [id number] [address] [place] [address] May, Exercise counseling Z71.82 [facility] [address] [id number] [address] [place] [address] May, Exercise counseling Z71.82 [facility] [address] [id number] [address] [place] [address] May, Labyrinthitis of left ear H8 3.02 [facility] [address] [id number] [address] [place] [phone] May, Exercise counseling Z71.82 [facility] [address] [id number] [address] [place] [phone] Apr, Arthritis M19.90 [facility] [address] [id number] [address] [place] [phone] Apr, Exercise counseling Z71.82 [facility] [address] [id number] [address] [place] [phone] Apr, Exercise counseling Z71.82 [facility] [address] [id number] [address] [place] [phone] Apr, Primary osteoarthritis of le ft knee M17.12 [facility] [address] [place] [id number] [address] [place] [phone] Apr, Labyrinthitis of left ear H8 3.02 [facility] [address] [place] [id number] [address] [place] [phone] Mar, Arthritis M19.90 [place] [address] [phone] Mar, [place] [address] [place] [id number] [place] [address] Mar, Chronic kidney disease, stag e 4 (severe) N18.4 [place] [address] [place] [id number] [place] [phone] Mar, Chronic kidney disease, stag e 4 (severe) N18.4 [place] [address] [address] Mar, Labyrinthitis of left ear H8 3.02 [place] [address] [place] [id number] [address] [place] [phone] Mar, Chronic kidney disease, stag e 4 (severe) N18.4 ; Knee pain, left anterior M25.562 ; Deficiency of other specified B group vitamins E53.8 and Encounter for immunization Z23 [place] [address] [place] [id number] [address] [place] [address] Mar, Arthritis M19.90 [place] [address] [place] [id number] [address] [place] [address] Feb, Labyrinthitis of left ear H8 3.02 [place] [address] [place] [id number] [place] [address] Feb, Arthritis M19.90 [place] [address] [place] [id number] [address] [place] [address] Jan, Labyrinthitis of left ear H8 3.02 [place] [address] [place] [id number] [address] [place] [phone] Jan, Arthritis M19.90 [place] [address] [address] Dec, Labyrinthitis of left ear H8 3.02 [place] [address] [address] Nov, Arthritis M19.90 [place] [address] [address] Nov, Labyrinthitis of left ear H8 3.02 [place] [address] [address] Nov, BMI 40.0-44.9, adult Z68.41 ; Chronic kidney disease, stage 4 (severe) N18.4 and Acute right-sided thoracic back pain M54.6 [place] [address] [address] October, Labyrinthitis of left ear H8 3.02 and Arthritis M19.90 [place] [address] [address] Sep, BPV (benign positional verti go), bilateral H81.13 ; Dysfunction of left eustachian tube H69.82 and BMI 40.0-44.9, adult Z68.41 [place] [address] [address] Sep, Labyrinthitis of left ear H8 3.02 and Arthritis M19.90 [place] [address] [address] Sep, [place] [address] [address] Sep, [place] [address] [address] Sep, Chronic kidney disease, stag e 4 (severe) N18.4 [facility] [address] [facility] [id number] [address] [place] [phone] Sep, Chronic kidney disease, stag e 4 (severe) N18.4 [facility] [address] [id number] [address] [place] [address] Aug, Labyrinthitis of left ear H8 3.02 and Arthritis M19.90 [facility] [address] [id number] [address] [place] [phone] Aug, [facility] [address] [id number] [address] [place] [address] Jul, [facility] [address] [facility] [id number] [address] [place] [address] Jul, Arthritis M19.90 and Labyrin thitis of left ear H83.02 [facility] [address] [place] [id number] [address] [place] [phone] Jul, [facility] [address] [facility] [id number] [address] [place] [phone] Jun, [facility] [address] [facility] [id number] [address] [place] [address] Jun, Arthritis M19.90 and Labyrin thitis of left ear H83.02 [facility] [address] [facility] [id number] [address] [place] [address] Jun, Pre-op evaluation Z01.818 ; BMI 40.0-44.9, adult Z68.41 and Encounter for immunization Z23 [facility] [address] [facility] [id number] [address] [place] [address] May, Arthritis M19.90 and Labyrin thitis of left ear H83.02 [facility] [address] [facility] [id number] [address] [place] [address] Apr, Labyrinthitis of left ear H8 3.02 [facility] [address] [id number] [address] [place] [address] Apr, Arthritis M19.90 and Labyrin thitis of left ear H83.02 [facility] [address] [facility] [id number] [address] [place] [address] 10 Mar, 2017 Arthritis M19.90 and Labyrin thitis of left ear H83.02 [facility] [address] [facility] [id number] [address] [place] [address] 05 Mar, 2017 Chronic kidney disease, stag e 4 (severe) N18.4 [facility] [address] [facility] [id number] [address] [place] [address] Feb, Arthritis M19.90 and Labyrin thitis of left ear H83.02 [place] [address] [facility] [id number] [address] [place] [phone] Jan, Labyrinthitis of left ear H8 3.02 and Deficiency of other specified B group vitamins E53.8 [place] [address] [facility] [id number] [address] [place] [address] Dec, Arthritis M19.90 [place] [address] [facility] [id number] [address] [place] [phone] Dec, BPV (benign positional verti go), bilateral H81.13 [place] [address] [facility] [id number] [address] [place] [phone] Dec, [facility] [address] [facility] [id number] [address] [place] [address] Dec, [facility] [address] [id number] [address] [place] [address] Dec, [facility] [address] [facility] [id number] [address] [place] [phone] Nov, Arthritis M19.90 and Deficie ncy of other specified B group vitamins E53.8 [place] [address] [facility] [id number] [address] [place] [address] Nov, Arthritis M19.90 [facility] [address] [id number] [address] [place] [address] Nov, Hyperparathyroidism E21.3 [facility] [address] [id number] [address] [place] [phone] October, [facility] [address] [facility] [id number] [address] [place] [address] October, Hyperparathyroidism E21.3 [facility] [address] [facility] [id number] [address] [place] [phone] October, [facility] [address] [facility] [id number] [address] [place] [address] October, Renal insufficiency N28.9 an d Hyperparathyroidism E21.3 [facility] [address] [facility] [id number] [address] [place] [address] October, [facility] [address] [facility] [id number] [address] [place] [address] October, Renal insufficiency N28.9 an d Hyperparathyroidism E21.3 [facility] [address] [facility] [id number] [address] [place] [address] October, Arthritis M19.90 [facility] [address] [facility] [id number] [address] [place] [phone] Sep, [facility] [address] [facility] [id number] [address] [place] [address] Sep, Lumbar neuritis M54.16 ; Tho racic abscess J86.9 and Deficiency of other specified B group vitamins E53.8 [facility] [address] [facility] [id number] [address] [place] [phone] Sep, [facility] [address] [facility] [id number] [address] [place] [address] Aug, Arthritis M19.90 [facility] [address] [facility] [id number] [address] [place] [address] Aug, Hyperparathyroidism E21.3 [facility] [address] [facility] [id number] [address] [place] [address] Aug, Hyperparathyroidism E21.3 [facility] [address] [facility] [id number] [address] [place] [address] Aug, Arthritis M19.90 [facility] [address] [facility] [id number] [address] [place] [address] Jul, Mass of throat R22.1 [facility] [address] [facility] [id number] [address] [place] [address] Jul, [facility] [address] [facility] [id number] [address] [place] [address] Jul, Arthritis M19.90 [facility] [address] [facility] [id number] [address] [place] [address] Jun, Arthritis M19.90 [facility] [address] [facility] [id number] [address] [place] [address] Jun, [facility] [address] [facility] [id number] [address] [place] [phone] Jun, Renal insufficiency N28.9 an d 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 [facility] [address] [facility] [id number] [address] [place] [address] 05 Jun, 2016 Medicare welcome exam Z00.00 ; Encounter for immunization Z23 ; Arthritis M19.90 ; Medicare annual wellness visit, initial Z00.00 ; Medicare annual wellness visit, subsequent Z00.00 and Deficiency of other specified B group vitamins E53.8 [facility] [address] [facility] [id number] [address] [place] [address] May, Renal insufficiency N28.9 an d 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 [facility] [address] [facility] [id number] [address] [place] [phone] May, Renal insufficiency N28.9 [facility] [address] [facility] [id number] [address] [place] [phone] 16 May, 2016 Renal insufficiency N28.9 [facility] [address] [facility] [id number] [address] [place] [address] 14 May, 2016 [facility] [address] [facility] [id number] [address] [place] [address] 16 Apr, 2016 [facility] [address] [facility] [id number] [address] [place] [address] 16 Apr, 2016 [facility] [address] [facility] [id number] [address] [place] [phone] 14 Apr, 2016 Mass of throat R22.1 [facility] [address] [facility] [id number] [address] [place] [address] 10 Apr, 2016 [facility] [address] [facility] [id number] [address] [place] [address] Apr, Mass of throat R22.1 [facility] [address] [facility] [id number] [address] [place] [address] 04 Apr, 2016 Mass of throat R22.1 [facility] [address] [facility] [id number] [address] [place] [phone] Mar, [facility] [address] [facility] [id number] [address] [place] [phone] Mar, [facility] [address] [facility] [id number] [address] [place] [address] Mar, [facility] [address] [place] [id number] [address] [place] [phone] 24 Mar, 2016 Parathyroid abnormality E21. 5 and Encounter for immunization Z23 [facility] [address] [facility] [id number] [address] [place] [phone] 17 Mar, 2016 [facility] [address] [facility] [id number] [address] [place] [phone] 11 Mar, 2016 [facility] [address] [place] [id number] [address] [place] [phone] Feb, Renal insufficiency N28.9 an d Hyperparathyroidism E21.3 [facility] [address] [facility] [id number] [address] [place] [phone] Feb, [facility] [address] [facility] [id number] [address] [place] [address] 15 Feb, 2016 Renal insufficiency N28.9 an d Hyperparathyroidism E21.3 [place] [address] [facility] [id number] [address] [place] [address] 14 Feb, 2016 [facility] [address] [facility] [id number] [address] [place] [phone] Feb, [place] [address] [address] Feb, [place] [address] [address] Jan, [place] [address] [address] Jan, Arthritis M19.90 ; Lumbago w ith sciatica, right side M54.41 and Other chronic pain G89.29 [place] [address] [address] Jan, [place] [address] [address] Dec, Arthritis M19.90 ; Lumbago w ith sciatica, right side M54.41 and Other chronic pain G89.29 [place] [id number] [place] [address] 16 Nov, 2015 Deficiency of other specifie d B group vitamins E53.8 ; Primary insomnia F51.01 ; Mood disorder F39 and Lumbago with sciatica, right side M54.41 [place] [address] [facility] [id number] [address] [place] [phone] Nov, Hyperparathyroidism E21.3 [place] [address] [address] [place] [id number] [address] [place] [phone] Nov, Unspecified kidney failure N 19 and Hyperparathyroidism E21.3 [facility] [address] [id number] October, Hyperparathyroidism E21.3 [facility] [address] [id number] October, [facility] [address] [address] October, Hyperparathyroidism E21.3 [facility] [address] [id number] October, Hyperparathyroidism E21.3 [facility] [address] [address] Sep, Hyperparathyroidism E21.3 ; Hypercholesterolemia E78.0 and Arthritis M19.90 [facility] [address] [id number] Aug, [facility] [address] [id number] Aug, Deficiency of other specifie d B group vitamins E53.8 [facility] [address] [id number] Aug, [facility] [address] [id number] Jul, Urinary frequency R35.0 [facility] [address] [id number] Jul, Urinary frequency R35.0 [facility] [address] [id number] Jul, [facility] [address] [id number] Jul, [facility] [address] [address] Jun, Pain in left knee M25.562 [facility] [address] [id number] [address] [place] [id number] Jun, [facility] [address] [id number] [address] [place] [id number] May, Swelling of left knee joint M25.462 [facility] [address] [id number] [address] [place] [id number] May, [facility] [address] [id number] [address] [place] [id number] May, [facility] [address] [id number] [address] [place] [id number] May, [facility] [address] [facility] [id number] [address] [place] [id number] Apr, Renal insufficiency N28.9 an d Chronic kidney disease, stage 4 (severe) N18.4 [facility] [address] [facility] [id number] [address] [place] [id number] Apr, Unspecified kidney failure N 19 [facility] [address] [facility] [id number] [address] [place] [id number] Apr, Unspecified kidney failure N 19 [facility] [address] [facility] [id number] [address] [place] [id number] Apr, [facility] [address] [facility] [id number] [address] [place] [address] Apr, Hyperparathyroidism, unspeci fied 252.00 [facility] [address] [facility] [id number] [address] [place] [address] Apr, [facility] [address] [facility] [id number] [address] [place] [phone] Mar, [facility] [address] [facility] [id number] [address] [place] [phone] Mar, [facility] [address] [facility] [id number] [address] [place] [phone] Mar, Hyperparathyroidism, unspeci fied 252.00 [facility] [address] [id number] [address] [place] [id number] Feb, [facility] [address] [facility] [id number] [address] [place] [address] Feb, Otalgia 388.70 [facility] [address] [facility] [id number] [address] [place] [address] Feb, [facility] [address] [id number] [address] [place] [phone] Feb, [facility] [address] [facility] [id number] [address] [place] [phone] Jan, [facility] [address] [facility] [id number] [address] [place] [phone] Jan, Hyperparathyroidism, unspeci fied 252.00 [facility] [address] [facility] [id number] [address] [place] [address] Jan, [facility] [address] [facility] [id number] [address] [place] [address] Jan, Other B-complex deficiencies 266.2 and Hyperparathyroidism, unspecified 252.00 [facility] [address] [facility] [id number] [address] [place] [phone] Jan, [facility] [address] [facility] [id number] [address] [place] [phone] Jan, [facility] [address] [facility] [id number] [address] [place] [phone] Jan, [facility] [address] [facility] [id number] [address] [place] [phone] Dec, [facility] [address] [facility] [id number] [address] [place] [phone] Dec, [facility] [address] [facility] [id number] [address] [place] [phone] Dec, [facility] [address] [id number] [address] [place] [id number] 15 Nov, 2014 Routine check-up V70.0 and P re-op exam V72.84 [facility] [address] [id number] [address] [place] [address] 12 Nov, 2014 [facility] [address] [id number] [address] [place] [phone] Nov, [facility] [address] [id number] [address] [place] [phone] October, [facility] [address] [id number] [address] [place] [phone] October, Other B-complex deficiencies 266.2 [facility] [address] [id number] [address] [place] [id number] October, [facility] [address] [id number] [address] [place] [phone] 14 Sep, 2014 [facility] [address] [id number] [address] [place] [phone] Sep, [facility] [address] [id number] [address] [place] [phone] 20 Aug, 2014 [facility] [address] [id number] [address] [place] [phone] 20 Aug, 2014 [facility] [address] [id number] [address] [place] [phone] 17 Aug, 2014 [facility] [address] [id number] [address] [place] [phone] 17 Aug, 2014 [facility] [address] [id number] [address] [place] [phone] Aug, [facility] [address] [id number] [address] [place] [phone] Aug, [facility] [address] [id number] [address] [place] [id number] 18 Jul, 2014 [facility] [address] [id number] [address] [place] [address], [place] [address] Jul, 2014 [facility] [address] [id number] [address] [place] [address], [place] [address] Jul, 2014 [facility] [address] [id number] [address] [place] [address], [place] [address] Jul, 2014 [facility] [address] [id number] [address] [place] [address], [place] [address] Jul, 2014 [facility] [address] [id number] [address] [place] [address], [place] [address] Jul, 2014 [facility] [address] [id number] [address] [place] [address], [place] [address] Jul, 2014 [facility] [address] [id number] [address] [place] [address], [place] [address] Jul, 2014 [facility] [address] [id number] [address] [place] [address], [place] [address] Jul, 2014 [facility] [address] [id number] [address] [place] [address], [place] [address] Jul, 2014 [facility] [address] [id number] [address] [place] [address], [place] [address] Jul, 2014 [facility] [address] [id number] [address] [place] [address], [place] [address] Jul, 2014 [facility] [address] [id number] [address] [place] [address], [place] [address] Jul, 2014 [facility] [address] [id number] [address] [place] [address], [place] [address] Jul, 2014 [facility] [address] [id number] [address] [place] [address], [place] [address] Jun, [facility] [address] [id number] [address] [place] [address], [place] [address] Jun, [facility] [address] [id number] [address] [place] [address], [place] [address] Jun, [facility] [address] [id number] [address] [place] [address], [place] [address] Jun, [facility] [address] [id number] [address] [place] [address], [place] [address] Jun, [facility] [address] [id number] [address] [place] [address], [place] [address] Jun, [facility] [address] [id number] [address] [place] [address], [place] [address] Jun, [facility] [address] [id number] [address] [place] [address], [place] [address] Jun, [facility] [address] [id number] [address] [place] [address], [place] [address] Jun, [facility] [address] [id number] [address] [place] [address], [place] [address] Jun, [facility] [address] [id number] [address] [place] [address], [place] [address] Jun, [facility] [address] [id number] [address] [place] [address], [place] [address] Jun, [facility] [address] [id number] [address] [place] [address], [place] [address] Jun, [facility] [address] [id number] [address] [place] [address], [place] [address] Jun, [facility] [address] [id number] [address] [place] [address], [place] [address] May, [facility] [address] [id number] [address] [place] [address], [place] [address] May, [facility] [address] [id number] [address] [place] [address], [place] [address] May, [facility] [address] [id number] [place] [address] May, [facility] [address] [id number] [address] [place] [address], [place] [address] Apr, [facility] [address] [id number] [address] [place] [address], [place] [address] Apr, [facility] [address] [id number] [address] [place] [address], [place] [address] Apr, [facility] [address] [id number] [address] [place] [address] Apr, [facility] [address] [id number] [address] [place] [address], [place] [address] Apr, [facility] [address] [id number] [address] [place] [phone] Apr, [facility] [address] [id number] [address] [place] [address], [place] [address] Mar, [facility] [address] [id number] [address] [place] [address], [place] [address] Mar, [facility] [address] [id number] [address] [place] [address], [place] [address] Mar, [facility] [address] [id number] [address] [place] [address], [place] [address] Mar, [facility] [address] [id number] [address] [place] [phone] 15 Mar, 2014 [facility] [address] [id number] [address] [place] [phone] 15 Mar, 2014 [facility] [address] [id number] [address] [place] [address], [place] [address] Mar, [facility] [address] [id number] [address] [place] [address], [place] [address] Mar, [facility] [address] [id number] [address] [place] [phone] Mar, [facility] [address] [id number] [address] [place] [address], [place] [address] 07 Mar, 2014 [facility] [address] [id number] [address] [place] [address], [place] [address] 07 Mar, 2014 [facility] [address] [id number] [address] [place] [address], [place] [address] 07 Mar, 2014 [facility] [address] [id number] [address] [place] [address], [place] [address] 06 Mar, 2014 [facility] [address] [id number] [address] [place] [address], [place] [address] 26 Feb, 2013 [facility] [address] [id number] [address] [place] [address], [place] [address] 26 Feb, 2014 [facility] [address] [id number] [address] [place] [address], [place] [address] 23 Feb, 2013 [facility] [address] [id number] [address] [place] [address], [place] [address] 23 Feb, 2013 [facility] [address] [id number] [address] [place] [address], [place] [address] 19 Feb, 2014 [facility] [address] [id number] [address] [place] [address], [place] [address] 19 Feb, 2014 [facility] [address] [id number] [address] [place] [address], [place] [address] 13 Feb, 2014 [facility] [address] [id number] [address] [place] [address], [place] [address] 13 Feb, 2014 [facility] [address] [id number] [address] [place] [address], [place] [address] 12 Feb, 2014 [facility] [address] [id number] [address] [place] [address], [place] [address] 12 Feb, 2014 [facility] [address] [id number] [address] [place] [address], [place] [address] 15 Jan, 2014 [facility] [address] [id number] [address] [place] [address], [place] [address] Jan, [facility] [address] [id number] [facility] [place] [address] Dec, [facility] [address] [id number] [address] [place] [address], [place] [address] Dec, [facility] [address] [id number] [address] [place] [address], [place] [address] Dec, [facility] [address] [id number] [address] [place] [address], [place] [address] Dec, [facility] [address] [id number] [address] [place] [address], [place] [address] Dec, [facility] [address] [id number] [address] [place] [address], [place] [address] Dec, [facility] [address] [id number] [address] [place] [address], [place] [address] Nov, [facility] [address] [id number] [address] [place] [address], [place] [address] Nov, [facility] [address] [id number] [address] [place] [address], [place] [address] Nov, [facility] [address] [id number] [address] [place] [address], [place] [address] Nov, [facility] [address] [id number] [address] [place] [address], [place] [address] October, [facility] [address] [id number] [address] [place] [address], [place] [address] October, [facility] [address] [id number] [address] [place] [address], [place] [address] October, [facility] [address] [id number] [address] [place] [address], [place] [address] October, [facility] [address] [id number] [address] [place] [address], [place] [address] October, [facility] [address] [id number] [address] [place] [address], [place] [address] October, [facility] [address] [id number] [address] [place] [address], [place] [address] October, [facility] [address] [id number] [address] [place] [address], [place] [address] October, [facility] [address] [id number] [address] [place] [address], [place] [address] October, [facility] [address] [id number] [address] [place] [address], [place] [address] October, [facility] [address] [id number] [address] [place] [address], [place] [address] October, [facility] [address] [id number] [address] [place] [address], [place] [address] October, [facility] [address] [id number] [address] [place] [address], [place] [address] October, [facility] [address] [id number] [address] [place] [address], [place] [address] October, [facility] [address] [id number] [address] [place] [address], [place] [address] October, [facility] [address] [id number] [address] [place] [address], [place] [address] October, [facility] [address] [id number] [address] [place] [address], [place] [address] Sep, [facility] [address] [id number] [address] [place] [address], [place] [address] Sep, [facility] [address] [id number] [address] [place] [address], [place] [address] Sep, [facility] [address] [id number] [address] [place] [address], [place] [address] Sep, [facility] [address] [id number] [address] [place] [address], [place] [address] Sep, [facility] [address] [id number] [address] [place] [address], [place] [address] Sep, [facility] [address] [id number] [address] [place] [address], [place] [address] Aug, [facility] [address] [id number] [address] [place] [address], [place] [address] Aug, [facility] [address] [id number] [address] [place] [address], [place] [address] Aug, [facility] [address] [id number] [address] [place] [address], [place] [address] Aug, [facility] [address] [id number] [address] [place] [address], [place] [address] Aug, [facility] [address] [id number] [address] [place] [address], [place] [address] Aug, [facility] [address] [id number] [address] [place] [address], [place] [address] Jul, [facility] [address] [id number] [address] [place] [address], [place] [address] Jul, [facility] [address] [id number] [address] [place] [address], [place] [address] Jul, [facility] [address] [id number] [address] [place] [address], [place] [address] Jul, [facility] [address] [id number] [address] [place] [address], [place] [address] Jun, [facility] [address] [id number] [address] [place] [address], [place] [address] Jun, [facility] [address] [id number] [address] [place] [address], [place] [address] May, [facility] [address] [id number] [address] [place] [address], [place] [address] May, [facility] [address] [id number] [place] [address] 10 May, 2013 [facility] [address] [id number] [address] [place] [address], [place] [address] May, [facility] [address] [id number] [address] [place] [address] May, [facility] [address] [id number] [address] [place] [address] Apr, [facility] [address] [id number] [address] [place] [address] Apr, [facility] [address] [id number] [address] [place] [address], [place] [address] Apr, [facility] [address] [id number] [address] [place] [address] Apr, [facility] [address] [id number] [address] [place] [address] Apr, [facility] [address] [id number] [address] [place] [address] Apr, [facility] [address] [id number] [address] [place] [address] 15 Mar, 2013 [facility] [address] [id number] [address] [place] [address] 15 Mar, 2013 [facility] [address] [id number] [address] [place] [address] 14 Mar, 2013 [facility] [address] [id number] [address] [place] [address] 14 Mar, 2013 [facility] [address] [id number] [address] [place] [address] 11 Mar, 2013 [facility] [address] [id number] [address] [place] [address] 11 Mar, 2013 [facility] [address] [id number] [address] [place] [phone] 23 Feb, 2013 [facility] [address] [id number] [address] [place] [address], [place] [address] Feb, [facility] [address] [id number] [address] [place] [address], [place] [address] Feb, [facility] [address] [id number] [address] [place] [address], [place] [address] Jan, [facility] [address] [id number] [address] [place] [address], [place] [address] Jan, [facility] [address] [id number] [address] [place] [address], [place] [address] Jan, [facility] [address] [id number] [address] [place] [address], [place] [address] Jan, [facility] [address] [id number] [address] [place] [address], [place] [address] Jan, [facility] [address] [id number] [address] [place] [address], [place] [address] Jan, [facility] [address] [id number] [address] [place] [address], [place] [address] Dec, [facility] [address] [id number] [address] [place] [address], [place] [address] Dec, [facility] [address] [id number] [address] [place] [address], [place] [address] Dec, [facility] [address] [id number] [address] [place] [address], [place] [address] Dec, [facility] [address] [id number] [address] [place] [address], [place] [address] Dec, [facility] [address] [id number] [address] [place] [address], [place] [address] Dec, [facility] [address] [id number] [address] [place] [address], [place] [address] Nov, [facility] [address] [id number] [address] [place] [address], [place] [address] Nov, [facility] [address] [id number] [address] [place] [address], [place] [address] 18 Nov, 2012 [facility] [address] [id number] [address] [place] [address], [place] [address] Nov, [facility] [address] [id number] [address] [place] [address], [place] [address] Nov, [facility] [address] [id number] [address] [place] [address], [place] [address] Nov, [facility] [address] [id number] [address] [place] [address], [place] [address] October, [facility] [address] [id number] [address] [place] [address], [place] [address] October, [facility] [address] [id number] [address] [place] [address], [place] [address] October, [facility] [address] [id number] [address] [place] [address], [place] [address] October, [facility] [address] [id number] [address] [place] [address], [place] [address] October, [facility] [address] [id number] [address] [place] [address], [place] [address] Sep, [facility] [address] [id number] [address] [place] [address], [place] [address] Sep, [facility] [address] [id number] [address] [place] [address], [place] [address] Sep, [facility] [address] [id number] [address] [place] [address], [place] [address] Sep, [facility] [address] [id number] [address] [place] [address], [place] [address] Sep, [facility] [address] [id number] [address] [place] [address], [place] [address] Aug, [facility] [address] [id number] [address] [place] [address], [place] [address] 07 Aug, 2012 [facility] [address] [id number] [address] [place] [address], [place] [address] 04 Aug, 2012 [facility] [address] [id number] [address] [place] [address], [place] [address] 21 Jul, 2012 [facility] [address] [id number] [address] [place] [address], [place] [address] 20 Jul, 2012 [facility] [address] [id number] [address] [place] [address], [place] [address] 11 Jul, 2012 [facility] [address] [id number] [address] [place] [address], [place] [address] 08 Jul, 2012 [facility] [address] [id number] [address] [place] [address], [place] [address] 06 Jul, 2012 [facility] [address] [id number] [address] [place] [address], [place] [address] 05 Jul, 2012 [facility] [address] [id number] [address] [place] [address], [place] [address] 15 Jun, 2012 [facility] [address] [id number] [address] [place] [address], [place] [address] 16 Apr, 2012 [facility] [address] [id number] [address] [place] [address], [place] [address] 16 Apr, 2012 [facility] [address] [id number] [address] [place] [address], [place] [address] Apr, [facility] [address] [id number] [address] [place] [address], [place] [address] Apr, [facility] [address] [id number] [address] [place] [address], [place] [address] Mar, [facility] [address] [address] [id number] [address] [place] [address], [place] [address] Mar, [facility] [address] [id number] [address] [place] [address], [place] [address] Mar, [facility] [address] [id number] [address] [place] [address], [place] [address] Mar, [facility] [address] [id number] [address] [place] [address], [place] [address] Mar, [facility] [address] [id number] [address] [place] [address], [place] [address] Feb, [facility] [address] [id number] [address] [place] [address], [place] [address] Jan, [facility] [address] [id number] [address] [place] [address], [place] [address] Jan, [facility] [address] [id number] [address] [place] [address], [place] [address] Jan, [facility] [address] [id number] [address] [place] [address], [place] [address] Dec, [facility] [address] [id number] [address] [place] [address], [place] [address] Nov, [facility] [address] [id number] [address] [place] [address], [place] [address] Nov, [facility] [address] [id number] [address] [place] [address], [place] [address] Nov, [facility] [address] [id number] [address] [place] [address], [place] [address] Nov, [facility] [address] [id number] [address] [place] [address], [place] [address] Nov, [facility] [address] [id number] [address] [place] [address], [place] [address] October, [facility] [address] [id number] [address] [place] [address], [place] [address] October, [facility] [address] [id number] [address] [place] [address], [place] [address] October, [facility] [address] [id number] [address] [address] October, [facility] [address] [facility] [id number] [place] [address] October, IMMUNIZATIONS No Known Immunizations SOCIAL HISTORY Never Assessed REASON FOR VISIT PLAN OF CARE VITAL SIGNS MEDICATIONS Unknown Medications RESULTS No Results PROCEDURES Procedure Date Ordered Result Body Site VITAMIN B-[id number] September 15, 2014 VENIPUNCT, ROUTINE* September 15, 2014 INSTRUCTIONS MEDICATIONS ADMINISTERED No Known Medications MEDICAL (GENERAL) HISTORY Type Description Date Medical History hypertension Medical History acid reflux Medical History osteoporosis Medical History Arthritis Medical History fibromyalgia Surgical History cholecystectomy 1969' Surgical History gastric bypass 1969's Surgical History orthopedic surgery-left and right foot Surgical History arthroscopic knee surgery-left Surgical History Left knee meniscus repair 2009 Surgical History half of thyroid removed Jun 2016 Hospitalization History Hospitalization for surgery only
--- OUTSIDE RECORDS SUMMARY | 2020-01-25 07:51 | XMS REPORT ---
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41 Active 897480701 ALLERGIES No Information ENCOUNTERS Encounter Location Date Diagnosis [facility] [address] [facility] [id number] [address] [place] [address] Nov, Inflammatory spondylopathy o f sacral region M46.98 [facility] [address] [facility] [id number] [address] [place] [address] Nov, [facility] [address] [facility] [id number] [address] [place] [address] 14 Nov, 2018 Labyrinthitis of left ear H8 3.02 [facility] [address] [id number] [address] [place] [address] Nov, Arthritis M19.90 [facility] [address] [id number] [address] [place] [address] Sep, Arthritis M19.90 [facility] [address] [facility] [id number] [address] [place] [address] Sep, Renal insufficiency N28.9 an d Unspecified kidney failure N19 [facility] [address] [id number] [address] [place] [address] Sep, Renal insufficiency N28.9 an d Unspecified kidney failure N19 [facility] [address] [id number] [address] [place] [address] Sep, Arthritis M19.90 [facility] [address] [id number] [address] [place] [address] Aug, Exercise counseling Z71.82 [facility] [address] [id number] [address] [place] [address] Aug, [facility] [address] [facility] [id number] [address] [place] [address] Jul, Labyrinthitis of left ear H8 3.02 [facility] [address] [facility] [id number] [address] [place] [address] Jul, Labyrinthitis of left ear H8 3.02 [facility] [address] [id number] [address] [place] [address] Jul, Exercise counseling Z71.82 [facility] [address] [facility] [id number] [address] [place] [address] 18 Jul, 2018 [facility] [address] [facility] [id number] [address] [place] [address] 14 Jul, 2018 Arthritis M19.90 [facility] [address] [facility] [id number] [address] [place] [address] 13 Jul, 2018 Encounter for Medicare annua l wellness exam Z00.00 ; Chronic kidney disease, stage 4 (severe) N18.4 ; Body mass index (BMI) of 40.0-44.9 in adult Z68.41 ; Hyperparathyroidism E21.3 and BMI 40.0-44.9, adult Z68.41 [facility] [address] [place] [id number] [address] [place] [address] 13 Jul, 2018 Encounter for Medicare annua l wellness exam Z00.00 ; Chronic kidney disease, stage 4 (severe) N18.4 ; Hyperparathyroidism E21.3 ; Body mass index (BMI) of 40.0-44.9 in adult Z68.41 and Encounter for immunization Z23 [place] [id number] [place] [address] 11 Jul, 2018 Tail bone pain M53.3 [place] [address] [address] 29 Jun, 2018 Exercise counseling Z71.82 [place] [address] [address] Jun, Labyrinthitis of left ear H8 3.02 [place] [address] [place] [id number] [address] [place] [address] Jun, Tail bone pain M53.3 ; Irrit able bowel syndrome with both constipation and diarrhea K58.2 and Dysfunction of left eustachian tube H69.82 [place] [address] [place] [id number] [address] [place] [address] Jun, Exercise counseling Z71.82 [place] [address] [facility] [id number] [address] [place] [address] Jun, Arthritis M19.90 [place] [address] [place] [id number] [place] [address] 16 Jun, 2018 Irritable bowel syndrome wit h both constipation and diarrhea K58.2 ; Tail bone pain M53.3 and Dysfunction of left eustachian tube H69.82 [facility] [address] [id number] [address] [place] [address] Jun, Exercise counseling Z71.82 [facility] [address] [id number] [address] [place] [address] Jun, Exercise counseling Z71.82 [facility] [address] [id number] [address] [place] [address] Jun, Labyrinthitis of left ear H8 3.02 [facility] [address] [id number] [address] [place] [address] May, Exercise counseling Z71.82 [facility] [address] [id number] [address] [place] [address] May, Arthritis M19.90 [facility] [address] [id number] [address] [place] [address] May, Exercise counseling Z71.82 [facility] [address] [id number] [address] [place] [address] May, Exercise counseling Z71.82 [facility] [address] [id number] [address] [place] [address] May, Labyrinthitis of left ear H8 3.02 [facility] [address] [id number] [address] [place] [address] May, Exercise counseling Z71.82 [facility] [address] [id number] [address] [place] [address] Apr, Arthritis M19.90 [facility] [address] [id number] [address] [place] [address] Apr, Exercise counseling Z71.82 [facility] [address] [id number] [address] [place] [address] Apr, Exercise counseling Z71.82 [facility] [address] [id number] [address] [place] [address] Apr, Primary osteoarthritis of le ft knee M17.12 [facility] [address] [place] [id number] [address] [place] [address] Apr, Labyrinthitis of left ear H8 3.02 [facility] [address] [place] [id number] [address] [place] [address] Mar, Arthritis M19.90 [place] [address] [address] Mar, [place] [address] [place] [id number] [place] [address] Mar, Chronic kidney disease, stag e 4 (severe) N18.4 [place] [address] [place] [id number] [place] [address] Mar, Chronic kidney disease, stag e 4 (severe) N18.4 [place] [address] [address] Mar, Labyrinthitis of left ear H8 3.02 [place] [address] [place] [id number] [address] [place] [address] Mar, Chronic kidney disease, stag e 4 (severe) N18.4 ; Knee pain, left anterior M25.562 ; Deficiency of other specified B group vitamins E53.8 and Encounter for immunization Z23 [place] [address] [place] [id number] [address] [place] [address] Mar, Arthritis M19.90 [place] [address] [place] [id number] [address] [place] [address] Feb, Labyrinthitis of left ear H8 3.02 [place] [address] [place] [id number] [place] [address] Feb, Arthritis M19.90 [place] [address] [place] [id number] [address] [place] [address] Jan, Labyrinthitis of left ear H8 3.02 [place] [address] [place] [id number] [address] [place] [address] Jan, Arthritis M19.90 [place] [address] [address] Dec, Labyrinthitis of left ear H8 3.02 [place] [address] [address] Nov, Arthritis M19.90 [place] [address] [address] Nov, Labyrinthitis of left ear H8 3.02 [place] [address] [address] Nov, BMI 40.0-44.9, adult Z68.41 ; Chronic kidney disease, stage 4 (severe) N18.4 and Acute right-sided thoracic back pain M54.6 [place] [address] [address] October, Labyrinthitis of left ear H8 3.02 and Arthritis M19.90 [place] [address] [address] Sep, BPV (benign positional verti go), bilateral H81.13 ; Dysfunction of left eustachian tube H69.82 and BMI 40.0-44.9, adult Z68.41 [place] [address] [address] Sep, Labyrinthitis of left ear H8 3.02 and Arthritis M19.90 [place] [address] [address] Sep, [place] [address] [address] Sep, [place] [address] [address] Sep, Chronic kidney disease, stag e 4 (severe) N18.4 [facility] [address] [facility] [id number] [address] [place] [address] Sep, Chronic kidney disease, stag e 4 (severe) N18.4 [facility] [address] [id number] [address] [place] [address] Aug, Labyrinthitis of left ear H8 3.02 and Arthritis M19.90 [facility] [address] [id number] [address] [place] [address] Aug, [facility] [address] [id number] [address] [place] [address] Jul, [facility] [address] [facility] [id number] [address] [place] [address] Jul, Arthritis M19.90 and Labyrin thitis of left ear H83.02 [facility] [address] [place] [id number] [address] [place] [address] Jul, [facility] [address] [facility] [id number] [address] [place] [address] Jun, [facility] [address] [facility] [id number] [address] [place] [address] Jun, Arthritis M19.90 and Labyrin thitis of left ear H83.02 [facility] [address] [facility] [id number] [address] [place] [address] Jun, Pre-op evaluation Z01.818 ; BMI 40.0-44.9, adult Z68.41 and Encounter for immunization Z23 [facility] [address] [facility] [id number] [address] [place] [address] May, Arthritis M19.90 and Labyrin thitis of left ear H83.02 [facility] [address] [facility] [id number] [address] [place] [address] Apr, Labyrinthitis of left ear H8 3.02 [facility] [address] [id number] [address] [place] [address] Apr, Arthritis M19.90 and Labyrin thitis of left ear H83.02 [facility] [address] [facility] [id number] [address] [place] [address] 10 Mar, 2017 Arthritis M19.90 and Labyrin thitis of left ear H83.02 [facility] [address] [facility] [id number] [address] [place] [address] 05 Mar, 2017 Chronic kidney disease, stag e 4 (severe) N18.4 [facility] [address] [facility] [id number] [address] [place] [address] Feb, Arthritis M19.90 and Labyrin thitis of left ear H83.02 [place] [address] [facility] [id number] [address] [place] [address] Jan, Labyrinthitis of left ear H8 3.02 and Deficiency of other specified B group vitamins E53.8 [place] [address] [facility] [id number] [address] [place] [address] Dec, Arthritis M19.90 [place] [address] [facility] [id number] [address] [place] [address] Dec, BPV (benign positional verti go), bilateral H81.13 [place] [address] [facility] [id number] [address] [place] [address] Dec, [facility] [address] [facility] [id number] [address] [place] [address] Dec, [facility] [address] [id number] [address] [place] [address] Dec, [facility] [address] [facility] [id number] [address] [place] [address] Nov, Arthritis M19.90 and Deficie ncy of other specified B group vitamins E53.8 [place] [address] [facility] [id number] [address] [place] [address] Nov, Arthritis M19.90 [facility] [address] [id number] [address] [place] [address] Nov, Hyperparathyroidism E21.3 [facility] [address] [id number] [address] [place] [address] October, [facility] [address] [facility] [id number] [address] [place] [address] October, Hyperparathyroidism E21.3 [facility] [address] [facility] [id number] [address] [place] [address] October, [facility] [address] [facility] [id number] [address] [place] [address] October, Renal insufficiency N28.9 an d Hyperparathyroidism E21.3 [facility] [address] [facility] [id number] [address] [place] [address] October, [facility] [address] [facility] [id number] [address] [place] [address] October, Renal insufficiency N28.9 an d Hyperparathyroidism E21.3 [facility] [address] [facility] [id number] [address] [place] [address] October, Arthritis M19.90 [facility] [address] [facility] [id number] [address] [place] [address] Sep, [facility] [address] [facility] [id number] [address] [place] [address] Sep, Lumbar neuritis M54.16 ; Tho racic abscess J86.9 and Deficiency of other specified B group vitamins E53.8 [facility] [address] [facility] [id number] [address] [place] [address] Sep, [facility] [address] [facility] [id number] [address] [place] [address] Aug, Arthritis M19.90 [facility] [address] [facility] [id number] [address] [place] [address] Aug, Hyperparathyroidism E21.3 [facility] [address] [facility] [id number] [address] [place] [address] Aug, Hyperparathyroidism E21.3 [facility] [address] [facility] [id number] [address] [place] [address] Aug, Arthritis M19.90 [facility] [address] [facility] [id number] [address] [place] [address] Jul, Mass of throat R22.1 [facility] [address] [facility] [id number] [address] [place] [address] Jul, [facility] [address] [facility] [id number] [address] [place] [address] Jul, Arthritis M19.90 [facility] [address] [facility] [id number] [address] [place] [address] Jun, Arthritis M19.90 [facility] [address] [facility] [id number] [address] [place] [address] Jun, [facility] [address] [facility] [id number] [address] [place] [address] Jun, Renal insufficiency N28.9 an d 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 [facility] [address] [facility] [id number] [address] [place] [address] 05 Jun, 2016 Medicare welcome exam Z00.00 ; Encounter for immunization Z23 ; Arthritis M19.90 ; Medicare annual wellness visit, initial Z00.00 ; Medicare annual wellness visit, subsequent Z00.00 and Deficiency of other specified B group vitamins E53.8 [facility] [address] [facility] [id number] [address] [place] [address] May, Renal insufficiency N28.9 an d 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 [facility] [address] [facility] [id number] [address] [place] [address] May, Renal insufficiency N28.9 [facility] [address] [facility] [id number] [address] [place] [address] 16 May, 2016 Renal insufficiency N28.9 [facility] [address] [facility] [id number] [address] [place] [address] 14 May, 2016 [facility] [address] [facility] [id number] [address] [place] [address] 16 Apr, 2016 [facility] [address] [facility] [id number] [address] [place] [address] 16 Apr, 2016 [facility] [address] [facility] [id number] [address] [place] [address] 14 Apr, 2016 Mass of throat R22.1 [facility] [address] [facility] [id number] [address] [place] [address] 10 Apr, 2016 [facility] [address] [facility] [id number] [address] [place] [address] Apr, Mass of throat R22.1 [facility] [address] [facility] [id number] [address] [place] [address] 04 Apr, 2016 Mass of throat R22.1 [facility] [address] [facility] [id number] [address] [place] [address] Mar, [facility] [address] [facility] [id number] [address] [place] [address] Mar, [facility] [address] [facility] [id number] [address] [place] [address] Mar, [facility] [address] [place] [id number] [address] [place] [address] 24 Mar, 2016 Parathyroid abnormality E21. 5 and Encounter for immunization Z23 [facility] [address] [facility] [id number] [address] [place] [address] 17 Mar, 2016 [facility] [address] [facility] [id number] [address] [place] [address] 11 Mar, 2016 [facility] [address] [place] [id number] [address] [place] [address] Feb, Renal insufficiency N28.9 an d Hyperparathyroidism E21.3 [facility] [address] [facility] [id number] [address] [place] [address] Feb, [facility] [address] [facility] [id number] [address] [place] [address] 15 Feb, 2016 Renal insufficiency N28.9 an d Hyperparathyroidism E21.3 [place] [address] [facility] [id number] [address] [place] [id number] 14 Feb, 2016 [facility] [address] [facility] [id number] [address] [place] [id number] Feb, [place] [address] [address] Feb, [place] [address] [address] Jan, [place] [address] [address] Jan, Arthritis M19.90 ; Lumbago w ith sciatica, right side M54.41 and Other chronic pain G89.29 [place] [address] [address] Jan, [place] [address] [address] Dec, Arthritis M19.90 ; Lumbago w ith sciatica, right side M54.41 and Other chronic pain G89.29 [place] [id number] [place] [id number] 16 Nov, 2015 Deficiency of other specifie d B group vitamins E53.8 ; Primary insomnia F51.01 ; Mood disorder F39 and Lumbago with sciatica, right side M54.41 [place] [address] [address] [facility] [id number] [address] [place] [phone] Nov, Hyperparathyroidism E21.3 [place] [address] [address] [place] [id number] [address] [place] [phone] Nov, Unspecified kidney failure N 19 and Hyperparathyroidism E21.3 [facility] [address] [address] October, Hyperparathyroidism E21.3 [facility] [address] [phone] October, [facility] [address] [address] October, Hyperparathyroidism E21.3 [facility] [address] [address] October, Hyperparathyroidism E21.3 [facility] [address] [address] Sep, Hyperparathyroidism E21.3 ; Hypercholesterolemia E78.0 and Arthritis M19.90 [facility] [address] [address] Aug, [facility] [address] [address] Aug, Deficiency of other specifie d B group vitamins E53.8 [facility] [address] [address] Aug, [facility] [address] [address] Jul, Urinary frequency R35.0 [facility] [address] [address] Jul, Urinary frequency R35.0 [facility] [address] [address] Jul, [facility] [address] [address] Jul, [facility] [address] [address] Jun, Pain in left knee M25.562 [facility] [address] [id number] [address] [place] [id number] Jun, [facility] [address] [id number] [address] [place] [id number] May, Swelling of left knee joint M25.462 [facility] [address] [id number] [address] [place] [id number] May, [facility] [address] [id number] [place] [address] May, [facility] [address] [id number] [address] [place] [address] May, [facility] [address] [facility] [id number] [address] [place] [address] Apr, Renal insufficiency N28.9 an d Chronic kidney disease, stage 4 (severe) N18.4 [facility] [address] [facility] [id number] [address] [place] [address] Apr, Unspecified kidney failure N 19 [facility] [address] [facility] [id number] [address] [place] [address] Apr, Unspecified kidney failure N 19 [facility] [address] [facility] [id number] [address] [place] [address] Apr, [facility] [address] [facility] [id number] [address] [place] [address] Apr, Hyperparathyroidism, unspeci fied 252.00 [facility] [address] [facility] [id number] [address] [place] [address] Apr, [facility] [address] [facility] [id number] [address] [place] [address] Mar, [facility] [address] [facility] [id number] [address] [place] [address] Mar, [facility] [address] [facility] [id number] [address] [place] [address] Mar, Hyperparathyroidism, unspeci fied 252.00 [facility] [address] [id number] [address] [place] [address] Feb, [facility] [address] [facility] [id number] [address] [place] [address] Feb, Otalgia 388.70 [facility] [address] [facility] [id number] [address] [place] [address] Feb, [facility] [address] [id number] [address] [place] [address] Feb, [facility] [address] [facility] [id number] [address] [place] [address] Jan, [facility] [address] [facility] [id number] [address] [place] [address] Jan, Hyperparathyroidism, unspeci fied 252.00 [facility] [address] [facility] [id number] [address] [place] [address] Jan, [facility] [address] [facility] [id number] [address] [place] [address] Jan, Other B-complex deficiencies 266.2 and Hyperparathyroidism, unspecified 252.00 [facility] [address] [facility] [id number] [address] [place] [address] Jan, [facility] [address] [facility] [id number] [address] [place] [address] Jan, [facility] [address] [facility] [id number] [address] [place] [address] Jan, [facility] [address] [facility] [id number] [address] [place] [address] Dec, [facility] [address] [facility] [id number] [address] [place] [address] Dec, [facility] [address] [facility] [id number] [address] [place] [address] Dec, [facility] [address] [id number] [address] [place] [address] 15 Nov, 2014 Routine check-up V70.0 and P re-op exam V72.84 [facility] [address] [id number] [address] [place] [address] 12 Nov, 2014 [facility] [address] [id number] [address] [place] [address] Nov, [facility] [address] [id number] [address] [place] [address] October, [facility] [address] [id number] [address] [place] [address] October, Other B-complex deficiencies 266.2 [facility] [address] [id number] [address] [place] [address] October, [facility] [address] [id number] [address] [place] [address] 14 Sep, 2014 [facility] [address] [id number] [address] [place] [address] Sep, [facility] [address] [id number] [address] [place] [address] 20 Aug, 2014 [facility] [address] [id number] [address] [place] [address] 20 Aug, 2014 [facility] [address] [id number] [address] [place] [address] 17 Aug, 2014 [facility] [address] [id number] [address] [place] [address] 17 Aug, 2014 [facility] [address] [id number] [address] [place] [address] Aug, [facility] [address] [id number] [address] [place] [address] Aug, [facility] [address] [id number] [address] [place] [address] 18 Jul, 2014 [facility] [address] [id number] [address] [place] [address], [place] [address] Jul, 2014 [facility] [address] [id number] [address] [place] [address], [place] [address] Jul, 2014 [facility] [address] [id number] [address] [place] [address], [place] [address] Jul, 2014 [facility] [address] [id number] [address] [place] [address], [place] [address] Jul, 2014 [facility] [address] [id number] [address] [place] [address], [place] [address] Jul, 2014 [facility] [address] [id number] [address] [place] [address], [place] [address] Jul, 2014 [facility] [address] [id number] [address] [place] [address], [place] [address] Jul, 2014 [facility] [address] [id number] [address] [place] [address], [place] [address] Jul, 2014 [facility] [address] [id number] [address] [place] [address], [place] [address] Jul, 2014 [facility] [address] [id number] [address] [place] [address], [place] [address] Jul, 2014 [facility] [address] [id number] [address] [place] [address], [place] [address] Jul, 2014 [facility] [address] [id number] [address] [place] [address], [place] [address] Jul, 2014 [facility] [address] [id number] [address] [place] [address], [place] [address] Jul, 2014 [facility] [address] [id number] [address] [place] [address], [place] [address] Jun, [facility] [address] [id number] [address] [place] [address], [place] [address] Jun, [facility] [address] [id number] [address] [place] [address], [place] [address] Jun, [facility] [address] [id number] [address] [place] [address], [place] [address] Jun, [facility] [address] [id number] [address] [place] [address], [place] [address] Jun, [facility] [address] [id number] [address] [place] [address], [place] [address] Jun, [facility] [address] [id number] [address] [place] [address], [place] [address] Jun, [facility] [address] [id number] [address] [place] [address], [place] [address] Jun, [facility] [address] [id number] [address] [place] [address], [place] [address] Jun, [facility] [address] [id number] [address] [place] [address], [place] [address] Jun, [facility] [address] [id number] [address] [place] [address], [place] [address] Jun, [facility] [address] [id number] [address] [place] [address], [place] [address] Jun, [facility] [address] [id number] [address] [place] [address], [place] [address] Jun, [facility] [address] [id number] [address] [place] [address], [place] [address] Jun, [facility] [address] [id number] [address] [place] [address], [place] [address] May, [facility] [address] [id number] [address] [place] [address], [place] [address] May, [facility] [address] [id number] [address] [place] [address], [place] [address] May, [facility] [address] [id number] [address] [address] May, [facility] [address] [id number] [address] [place] [address], [place] [address] Apr, [facility] [address] [id number] [address] [place] [address], [place] [address] Apr, [facility] [address] [id number] [address] [place] [address], [place] [address] Apr, [facility] [address] [id number] [address] [place] [address] Apr, [facility] [address] [id number] [address] [place] [address], [place] [address] Apr, [facility] [address] [id number] [address] [place] [address] Apr, [facility] [address] [id number] [address] [place] [address], [place] [address] Mar, [facility] [address] [id number] [address] [place] [address], [place] [address] Mar, [facility] [address] [id number] [address] [place] [address], [place] [address] Mar, [facility] [address] [id number] [address] [place] [address], [place] [address] Mar, [facility] [address] [id number] [address] [place] [address] 15 Mar, 2014 [facility] [address] [id number] [address] [place] [address] 15 Mar, 2014 [facility] [address] [id number] [address] [place] [address], [place] [address] Mar, [facility] [address] [id number] [address] [place] [address], [place] [address] Mar, [facility] [address] [id number] [address] [place] [address] Mar, [facility] [address] [id number] [address] [place] [address], [place] [address] 07 Mar, 2014 [facility] [address] [id number] [address] [place] [address], [place] [address] 07 Mar, 2014 [facility] [address] [id number] [address] [place] [address], [place] [address] 07 Mar, 2014 [facility] [address] [id number] [address] [place] [address], [place] [address] 06 Mar, 2014 [facility] [address] [id number] [address] [place] [address], [place] [address] 26 Feb, 2013 [facility] [address] [id number] [address] [place] [address], [place] [address] 26 Feb, 2014 [facility] [address] [id number] [address] [place] [address], [place] [address] 23 Feb, 2013 [facility] [address] [id number] [address] [place] [address], [place] [address] 23 Feb, 2013 [facility] [address] [id number] [address] [place] [address], [place] [address] 19 Feb, 2014 [facility] [address] [id number] [address] [place] [address], [place] [address] 19 Feb, 2014 [facility] [address] [id number] [address] [place] [address], [place] [address] 13 Feb, 2014 [facility] [address] [id number] [address] [place] [address], [place] [address] 13 Feb, 2014 [facility] [address] [id number] [address] [place] [address], [place] [address] 12 Feb, 2014 [facility] [address] [id number] [address] [place] [address], [place] [address] 12 Feb, 2014 [facility] [address] [id number] [address] [place] [address], [place] [address] 15 Jan, 2014 [facility] [address] [id number] [address] [place] [address], [place] [address] Jan, [facility] [address] [id number] [facility] [place] [address] Dec, [facility] [address] [id number] [address] [place] [address], [place] [address] Dec, [facility] [address] [id number] [address] [place] [address], [place] [address] Dec, [facility] [address] [id number] [address] [place] [address], [place] [address] Dec, [facility] [address] [id number] [address] [place] [address], [place] [address] Dec, [facility] [address] [id number] [address] [place] [address], [place] [address] Dec, [facility] [address] [id number] [address] [place] [address], [place] [address] Nov, [facility] [address] [id number] [address] [place] [address], [place] [address] Nov, [facility] [address] [id number] [address] [place] [address], [place] [address] Nov, [facility] [address] [id number] [address] [place] [address], [place] [address] Nov, [facility] [address] [id number] [address] [place] [address], [place] [address] October, [facility] [address] [id number] [address] [place] [address], [place] [address] October, [facility] [address] [id number] [address] [place] [address], [place] [address] October, [facility] [address] [id number] [address] [place] [address], [place] [address] October, [facility] [address] [id number] [address] [place] [address], [place] [address] October, [facility] [address] [id number] [address] [place] [address], [place] [address] October, [facility] [address] [id number] [address] [place] [address], [place] [address] October, [facility] [address] [id number] [address] [place] [address], [place] [address] October, [facility] [address] [id number] [address] [place] [address], [place] [address] October, [facility] [address] [id number] [address] [place] [address], [place] [address] October, [facility] [address] [id number] [address] [place] [address], [place] [address] October, [facility] [address] [id number] [address] [place] [address], [place] [address] October, [facility] [address] [id number] [address] [place] [address], [place] [address] October, [facility] [address] [id number] [address] [place] [address], [place] [address] October, [facility] [address] [id number] [address] [place] [address], [place] [address] October, [facility] [address] [id number] [address] [place] [address], [place] [address] October, [facility] [address] [id number] [address] [place] [address], [place] [address] Sep, [facility] [address] [id number] [address] [place] [address], [place] [address] Sep, [facility] [address] [id number] [address] [place] [address], [place] [address] Sep, [facility] [address] [id number] [address] [place] [address], [place] [address] Sep, [facility] [address] [id number] [address] [place] [address], [place] [address] Sep, [facility] [address] [id number] [address] [place] [address], [place] [address] Sep, [facility] [address] [id number] [address] [place] [address], [place] [address] Aug, [facility] [address] [id number] [address] [place] [address], [place] [address] Aug, [facility] [address] [id number] [address] [place] [address], [place] [address] Aug, [facility] [address] [id number] [address] [place] [address], [place] [address] Aug, [facility] [address] [id number] [address] [place] [address], [place] [address] Aug, [facility] [address] [id number] [address] [place] [address], [place] [address] Aug, [facility] [address] [id number] [address] [place] [address], [place] [address] Jul, [facility] [address] [id number] [address] [place] [address], [place] [address] Jul, [facility] [address] [id number] [address] [place] [address], [place] [address] Jul, [facility] [address] [id number] [address] [place] [address], [place] [address] Jul, [facility] [address] [id number] [address] [place] [address], [place] [address] Jun, [facility] [address] [id number] [address] [place] [address], [place] [address] Jun, [facility] [address] [id number] [address] [place] [address], [place] [address] May, [facility] [address] [id number] [address] [place] [address], [place] [address] May, [facility] [address] [id number] [address] [address] 10 May, 2013 [facility] [address] [id number] [address] [place] [address], [place] [address] May, [facility] [address] [id number] [address] [place] [address] May, [facility] [address] [id number] [address] [place] [address] Apr, [facility] [address] [id number] [address] [place] [address] Apr, [facility] [address] [id number] [address] [place] [address], [place] [address] Apr, [facility] [address] [id number] [address] [place] [address] Apr, [facility] [address] [id number] [address] [place] [address] Apr, [facility] [address] [id number] [address] [place] [address] Apr, [facility] [address] [id number] [address] [place] [id number] 15 Mar, 2013 [facility] [address] [id number] [address] [place] [id number] 15 Mar, 2013 [facility] [address] [id number] [address] [place] [address] 14 Mar, 2013 [facility] [address] [id number] [address] [place] [id number] 14 Mar, 2013 [facility] [address] [id number] [address] [place] [address] 11 Mar, 2013 [facility] [address] [id number] [address] [place] [address] 11 Mar, 2013 [facility] [address] [id number] [address] [place] [id number] 23 Feb, 2013 [facility] [address] [id number] [address] [place] [address], [place] [address] Feb, [facility] [address] [id number] [address] [place] [address], [place] [address] Feb, [facility] [address] [id number] [address] [place] [address], [place] [address] Jan, [facility] [address] [id number] [address] [place] [address], [place] [address] Jan, [facility] [address] [id number] [address] [place] [address], [place] [address] Jan, [facility] [address] [id number] [address] [place] [address], [place] [address] Jan, [facility] [address] [id number] [address] [place] [address], [place] [address] Jan, [facility] [address] [id number] [address] [place] [address], [place] [address] Jan, [facility] [address] [id number] [address] [place] [address], [place] [address] Dec, [facility] [address] [id number] [address] [place] [address], [place] [address] Dec, [facility] [address] [id number] [address] [place] [address], [place] [address] Dec, [facility] [address] [id number] [address] [place] [address], [place] [address] Dec, [facility] [address] [id number] [address] [place] [address], [place] [address] Dec, [facility] [address] [id number] [address] [place] [address], [place] [address] Dec, [facility] [address] [id number] [address] [place] [address], [place] [address] Nov, [facility] [address] [id number] [address] [place] [address], [place] [address] Nov, [facility] [address] [id number] [address] [place] [address], [place] [address] 18 Nov, 2012 [facility] [address] [id number] [address] [place] [address], [place] [address] Nov, [facility] [address] [id number] [address] [place] [address], [place] [address] Nov, [facility] [address] [id number] [address] [place] [address], [place] [address] Nov, [facility] [address] [id number] [address] [place] [address], [place] [address] October, [facility] [address] [id number] [address] [place] [address], [place] [address] October, [facility] [address] [id number] [address] [place] [address], [place] [address] October, [facility] [address] [id number] [address] [place] [address], [place] [address] October, [facility] [address] [id number] [address] [place] [address], [place] [address] October, [facility] [address] [id number] [address] [place] [address], [place] [address] Sep, [facility] [address] [id number] [address] [place] [address], [place] [address] Sep, [facility] [address] [id number] [address] [place] [address], [place] [address] Sep, [facility] [address] [id number] [address] [place] [address], [place] [address] Sep, [facility] [address] [id number] [address] [place] [address], [place] [address] Sep, [facility] [address] [id number] [address] [place] [address], [place] [address] Aug, [facility] [address] [id number] [address] [place] [address], [place] [address] 07 Aug, 2012 [facility] [address] [id number] [address] [place] [address], [place] [address] 04 Aug, 2012 [facility] [address] [id number] [address] [place] [address], [place] [address] 21 Jul, 2012 [facility] [address] [id number] [address] [place] [address], [place] [address] 20 Jul, 2012 [facility] [address] [id number] [address] [place] [address], [place] [address] 11 Jul, 2012 [facility] [address] [id number] [address] [place] [address], [place] [address] 08 Jul, 2012 [facility] [address] [id number] [address] [place] [address], [place] [address] 06 Jul, 2012 [facility] [address] [id number] [address] [place] [address], [place] [address] 05 Jul, 2012 [facility] [address] [id number] [address] [place] [address], [place] [address] 15 Jun, 2012 [facility] [address] [id number] [address] [place] [address], [place] [address] 16 Apr, 2012 [facility] [address] [id number] [address] [place] [address], [place] [address] 16 Apr, 2012 [facility] [address] [id number] [address] [place] [address], [place] [address] Apr, [facility] [address] [id number] [address] [place] [address], [place] [address] Apr, [facility] [address] [id number] [address] [place] [address], [place] [address] Mar, [facility] [address] [id number] [address] [place] [address], [place] [address] Mar, [facility] [address] [id number] [address] [place] [address], [place] [address] Mar, [facility] [address] [id number] [address] [place] [address], [place] [address] Mar, [facility] [address] [id number] [address] [place] [address], [place] [address] Mar, [facility] [address] [id number] [address] [place] [address], [place] [address] Feb, [facility] [address] [id number] [address] [place] [address], [place] [address] Jan, [facility] [address] [id number] [address] [place] [address], [place] [address] Jan, [facility] [address] [id number] [address] [place] [address], [place] [address] Jan, [facility] [address] [id number] [address] [place] [address], [place] [address] Dec, [facility] [address] [id number] [address] [place] [address], [place] [address] Nov, [facility] [address] [id number] [address] [place] [address], [place] [address] Nov, [facility] [address] [id number] [address] [place] [address], [place] [address] Nov, [facility] [address] [id number] [address] [place] [address], [place] [address] Nov, [facility] [address] [id number] [address] [place] [address], [place] [address] Nov, [facility] [address] [id number] [address] [place] [address], [place] [address] October, [facility] [address] [id number] [address] [place] [address], [place] [address] October, [facility] [address] [id number] [address] [place] [address], [place] [address] October, [facility] [address] [id number] [address] [address] October, [facility] [address] [facility] [id number] [address] [place] [address] October, IMMUNIZATIONS No Known Immunizations SOCIAL HISTORY [...]
--- OUTSIDE RECORDS SUMMARY | 2020-01-25 07:51 | XMS REPORT ---
Author Author Velma CORDERO Organization [facility] Address [address] [place] [address] Care Team Providers Care Shoe Puller Name Role Phone STEPHAN CORDERO Unavailable PROBLEMS Type Condition ICD9-CM Code TYH32-IR Code Onset Dates Condition S tatus SNOMED Code Problem Primary insomnia F51.01 Active 397 2004 Problem Hypercholesteremia E78.0 Active 1 7887867 Problem Corns L84 Active 441217819 Problem Arthritis M19.90 Active 5638526 Problem Hyperparathyroidism E21.3 Active 42040345 Problem 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 Active 52689114 Problem 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 Active 08455446 Problem BPV (benign positional vertigo), bilateral H81.13 Active 571870997 Problem Unspecified kidney failure N19 Act chip 13135550 Problem Myalgia M79.1 Active 49172914 Problem 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 Active 160889740 Problem Mood disorder F39 Active 354389 05 Problem Chronic kidney disease, stage 4 (severe) N18.4 Active 854006693 Problem Primary osteoarthritis of left knee M17.12 Active [id number] Problem Irritable bowel syndrome with both constipation and diarrh ea K58.2 Active 59341325 Problem Body mass index (BMI) of 40.0-44.9 in adult Z68.41 Active 758986733 ALLERGIES No Information ENCOUNTERS Encounter Location Date Diagnosis [facility] [address] [facility] [id number] [address] [place] [phone] Nov, Inflammatory spondylopathy o f sacral region M46.98 [facility] [address] [facility] [id number] [address] [place] [id number] Nov, [facility] [address] [facility] [id number] [address] [place] [id number] 14 Nov, 2018 Labyrinthitis of left ear H8 3.02 [facility] [address] [id number] [address] [place] [id number] Nov, Arthritis M19.90 [facility] [address] [id number] [address] [place] [id number] Sep, Arthritis M19.90 [facility] [address] [facility] [id number] [address] [place] [phone] Sep, Renal insufficiency N28.9 an d Unspecified kidney failure N19 [facility] [address] [id number] [address] [place] [id number] Sep, Renal insufficiency N28.9 an d Unspecified kidney failure N19 [facility] [address] [id number] [address] [place] [id number] Sep, Arthritis M19.90 [facility] [address] [id number] [address] [place] [phone] Aug, Exercise counseling Z71.82 [facility] [address] [id number] [address] [place] [id number] Aug, [facility] [address] [facility] [id number] [address] [place] [phone] Jul, Labyrinthitis of left ear H8 3.02 [facility] [address] [facility] [id number] [address] [place] [id number] Jul, Labyrinthitis of left ear H8 3.02 [facility] [address] [id number] [address] [place] [id number] Jul, Exercise counseling Z71.82 [facility] [address] [facility] [id number] [address] [place] [id number] 18 Jul, 2018 [facility] [address] [facility] [id number] [address] [place] [id number] 14 Jul, 2018 Arthritis M19.90 [facility] [address] [facility] [id number] [address] [place] [phone] 13 Jul, 2018 Encounter for Medicare annua l wellness exam Z00.00 ; Chronic kidney disease, stage 4 (severe) N18.4 ; Body mass index (BMI) of 40.0-44.9 in adult Z68.41 ; Hyperparathyroidism E21.3 and BMI 40.0-44.9, adult Z68.41 [facility] [address] [place] [id number] [address] [place] [id number] 13 Jul, 2018 Encounter for Medicare annua l wellness exam Z00.00 ; Chronic kidney disease, stage 4 (severe) N18.4 ; Hyperparathyroidism E21.3 ; Body mass index (BMI) of 40.0-44.9 in adult Z68.41 and Encounter for immunization Z23 [place] [address] [place] [id number] 11 Jul, 2018 Tail bone pain M53.3 [place] [address] [address] 29 Jun, 2018 Exercise counseling Z71.82 [place] [address] [address] Jun, Labyrinthitis of left ear H8 3.02 [place] [address] [place] [id number] [address] [place] [phone] Jun, Tail bone pain M53.3 ; Irrit able bowel syndrome with both constipation and diarrhea K58.2 and Dysfunction of left eustachian tube H69.82 [place] [address] [place] [id number] [address] [place] [phone] Jun, Exercise counseling Z71.82 [place] [address] [facility] [id number] [address] [place] [phone] Jun, Arthritis M19.90 [place] [address] [place] [id number] [place] [phone] 16 Jun, 2018 Irritable bowel syndrome wit h both constipation and diarrhea K58.2 ; Tail bone pain M53.3 and Dysfunction of left eustachian tube H69.82 [facility] [address] [id number] [address] [place] [address] Jun, Exercise counseling Z71.82 [facility] [address] [id number] [address] [place] [phone] Jun, Exercise counseling Z71.82 [facility] [address] [id number] [address] [place] [phone] Jun, Labyrinthitis of left ear H8 3.02 [facility] [address] [id number] [address] [place] [id number] May, Exercise counseling Z71.82 [facility] [address] [id number] [address] [place] [address] May, Arthritis M19.90 [facility] [address] [id number] [address] [place] [address] May, Exercise counseling Z71.82 [facility] [address] [id number] [address] [place] [phone] May, Exercise counseling Z71.82 [facility] [address] [id number] [address] [place] [address] May, Labyrinthitis of left ear H8 3.02 [facility] [address] [id number] [address] [place] [address] May, Exercise counseling Z71.82 [facility] [address] [id number] [address] [place] [address] Apr, Arthritis M19.90 [facility] [address] [id number] [address] [place] [phone] Apr, Exercise counseling Z71.82 [facility] [address] [id number] [address] [place] [address] Apr, Exercise counseling Z71.82 [facility] [address] [id number] [address] [place] [address] Apr, Primary osteoarthritis of le ft knee M17.12 [facility] [address] [place] [id number] [address] [place] [id number] Apr, Labyrinthitis of left ear H8 3.02 [facility] [address] [place] [id number] [address] [place] [address] Mar, Arthritis M19.90 [place] [address] [address] Mar, [place] [address] [place] [id number] [place] [phone] Mar, Chronic kidney disease, stag e 4 (severe) N18.4 [place] [address] [place] [id number] [place] [phone] Mar, Chronic kidney disease, stag e 4 (severe) N18.4 [place] [address] [address] Mar, Labyrinthitis of left ear H8 3.02 [place] [address] [place] [id number] [address] [place] [address] Mar, Chronic kidney disease, stag e 4 (severe) N18.4 ; Knee pain, left anterior M25.562 ; Deficiency of other specified B group vitamins E53.8 and Encounter for immunization Z23 [place] [address] [place] [id number] [address] [place] [address] Mar, Arthritis M19.90 [place] [address] [place] [id number] [address] [place] [id number] Feb, Labyrinthitis of left ear H8 3.02 [place] [address] [place] [id number] [place] [address] Feb, Arthritis M19.90 [place] [address] [place] [id number] [address] [place] [id number] Jan, Labyrinthitis of left ear H8 3.02 [place] [address] [place] [id number] [address] [place] [address] Jan, Arthritis M19.90 [place] [address] [address] Dec, Labyrinthitis of left ear H8 3.02 [place] [address] [address] Nov, Arthritis M19.90 [place] [address] [address] Nov, Labyrinthitis of left ear H8 3.02 [place] [address] [address] Nov, BMI 40.0-44.9, adult Z68.41 ; Chronic kidney disease, stage 4 (severe) N18.4 and Acute right-sided thoracic back pain M54.6 [place] [address] [address] October, Labyrinthitis of left ear H8 3.02 and Arthritis M19.90 [place] [address] [address] Sep, BPV (benign positional verti go), bilateral H81.13 ; Dysfunction of left eustachian tube H69.82 and BMI 40.0-44.9, adult Z68.41 [place] [address] [address] Sep, Labyrinthitis of left ear H8 3.02 and Arthritis M19.90 [place] [address] [address] Sep, [place] [address] [address] Sep, [place] [address] [address] Sep, Chronic kidney disease, stag e 4 (severe) N18.4 [facility] [address] [facility] [id number] [address] [place] [address] Sep, Chronic kidney disease, stag e 4 (severe) N18.4 [facility] [address] [id number] [address] [place] [id number] Aug, Labyrinthitis of left ear H8 3.02 and Arthritis M19.90 [facility] [address] [id number] [address] [place] [id number] Aug, [facility] [address] [id number] [address] [place] [id number] Jul, [facility] [address] [facility] [id number] [address] [place] [id number] Jul, Arthritis M19.90 and Labyrin thitis of left ear H83.02 [facility] [address] [place] [id number] [address] [place] [phone] Jul, [facility] [address] [facility] [id number] [address] [place] [id number] Jun, [facility] [address] [facility] [id number] [address] [place] [address] Jun, Arthritis M19.90 and Labyrin thitis of left ear H83.02 [facility] [address] [facility] [id number] [address] [place] [address] Jun, Pre-op evaluation Z01.818 ; BMI 40.0-44.9, adult Z68.41 and Encounter for immunization Z23 [facility] [address] [facility] [id number] [address] [place] [id number] May, Arthritis M19.90 and Labyrin thitis of left ear H83.02 [facility] [address] [facility] [id number] [address] [place] [address] Apr, Labyrinthitis of left ear H8 3.02 [facility] [address] [id number] [address] [place] [address] Apr, Arthritis M19.90 and Labyrin thitis of left ear H83.02 [facility] [address] [facility] [id number] [address] [place] [id number] 10 Mar, 2017 Arthritis M19.90 and Labyrin thitis of left ear H83.02 [facility] [address] [facility] [id number] [address] [place] [id number] 05 Mar, 2017 Chronic kidney disease, stag e 4 (severe) N18.4 [facility] [address] [facility] [id number] [address] [place] [address] Feb, Arthritis M19.90 and Labyrin thitis of left ear H83.02 [place] [address] [facility] [id number] [address] [place] [id number] Jan, Labyrinthitis of left ear H8 3.02 and Deficiency of other specified B group vitamins E53.8 [place] [address] [facility] [id number] [address] [place] [id number] Dec, Arthritis M19.90 [place] [address] [facility] [id number] [address] [place] [id number] Dec, BPV (benign positional verti go), bilateral H81.13 [place] [address] [facility] [id number] [address] [place] [id number] Dec, [facility] [address] [facility] [id number] [address] [place] [phone] Dec, [facility] [address] [id number] [address] [place] [id number] Dec, [facility] [address] [facility] [id number] [address] [place] [phone] Nov, Arthritis M19.90 and Deficie ncy of other specified B group vitamins E53.8 [place] [address] [facility] [id number] [address] [place] [id number] Nov, Arthritis M19.90 [facility] [address] [id number] [address] [place] [id number] Nov, Hyperparathyroidism E21.3 [facility] [address] [id number] [address] [place] [id number] October, [facility] [address] [facility] [id number] [address] [place] [id number] October, Hyperparathyroidism E21.3 [facility] [address] [facility] [id number] [address] [place] [phone] October, [facility] [address] [facility] [id number] [address] [place] [id number] October, Renal insufficiency N28.9 an d Hyperparathyroidism E21.3 [facility] [address] [facility] [id number] [address] [place] [id number] October, [facility] [address] [facility] [id number] [address] [place] [phone] October, Renal insufficiency N28.9 an d Hyperparathyroidism E21.3 [facility] [address] [facility] [id number] [address] [place] [address] October, Arthritis M19.90 [facility] [address] [facility] [id number] [address] [place] [id number] Sep, [facility] [address] [facility] [id number] [address] [place] [address] Sep, Lumbar neuritis M54.16 ; Tho racic abscess J86.9 and Deficiency of other specified B group vitamins E53.8 [facility] [address] [facility] [id number] [address] [place] [id number] Sep, [facility] [address] [facility] [id number] [address] [place] [id number] Aug, Arthritis M19.90 [facility] [address] [facility] [id number] [address] [place] [id number] Aug, Hyperparathyroidism E21.3 [facility] [address] [facility] [id number] [address] [place] [address] Aug, Hyperparathyroidism E21.3 [facility] [address] [facility] [id number] [address] [place] [address] Aug, Arthritis M19.90 [facility] [address] [facility] [id number] [address] [place] [phone] Jul, Mass of throat R22.1 [facility] [address] [facility] [id number] [address] [place] [id number] Jul, [facility] [address] [facility] [id number] [address] [place] [address] Jul, Arthritis M19.90 [facility] [address] [facility] [id number] [address] [place] [id number] Jun, Arthritis M19.90 [facility] [address] [facility] [id number] [address] [place] [id number] Jun, [facility] [address] [facility] [id number] [address] [place] [address] Jun, Renal insufficiency N28.9 an d 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 [facility] [address] [facility] [id number] [address] [place] [id number] 05 Jun, 2016 Medicare welcome exam Z00.00 ; Encounter for immunization Z23 ; Arthritis M19.90 ; Medicare annual wellness visit, initial Z00.00 ; Medicare annual wellness visit, subsequent Z00.00 and Deficiency of other specified B group vitamins E53.8 [facility] [address] [facility] [id number] [address] [place] [address] May, Renal insufficiency N28.9 an d 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 [facility] [address] [facility] [id number] [address] [place] [address] May, Renal insufficiency N28.9 [facility] [address] [facility] [id number] [address] [place] [phone] 16 May, 2016 Renal insufficiency N28.9 [facility] [address] [facility] [id number] [address] [place] [id number] 14 May, 2016 [facility] [address] [facility] [id number] [address] [place] [phone] 16 Apr, 2016 [facility] [address] [facility] [id number] [address] [place] [id number] 16 Apr, 2016 [facility] [address] [facility] [id number] [address] [place] [id number] 14 Apr, 2016 Mass of throat R22.1 [facility] [address] [facility] [id number] [address] [place] [id number] 10 Apr, 2016 [facility] [address] [facility] [id number] [address] [place] [phone] Apr, Mass of throat R22.1 [facility] [address] [facility] [id number] [address] [place] [phone] 04 Apr, 2016 Mass of throat R22.1 [facility] [address] [facility] [id number] [address] [place] [phone] Mar, [facility] [address] [facility] [id number] [address] [place] [phone] Mar, [facility] [address] [facility] [id number] [address] [place] [phone] Mar, [facility] [address] [place] [id number] [address] [place] [phone] 24 Mar, 2016 Parathyroid abnormality E21. 5 and Encounter for immunization Z23 [facility] [address] [facility] [id number] [address] [place] [id number] 17 Mar, 2016 [facility] [address] [facility] [id number] [address] [place] [phone] 11 Mar, 2016 [facility] [address] [place] [id number] [address] [place] [phone] Feb, Renal insufficiency N28.9 an d Hyperparathyroidism E21.3 [facility] [address] [facility] [id number] [address] [place] [phone] Feb, [facility] [address] [facility] [id number] [address] [place] [phone] 15 Feb, 2016 Renal insufficiency N28.9 an d Hyperparathyroidism E21.3 [place] [address] [facility] [id number] [address] [place] [phone] 14 Feb, 2016 [facility] [address] [facility] [id number] [address] [place] [phone] Feb, [place] [address] [address] Feb, [place] [address] [address] Jan, [place] [address] [address] Jan, Arthritis M19.90 ; Lumbago w ith sciatica, right side M54.41 and Other chronic pain G89.29 [place] [address] [address] Jan, [place] [address] [address] Dec, Arthritis M19.90 ; Lumbago w ith sciatica, right side M54.41 and Other chronic pain G89.29 [place] [id number] [place] [address] 16 Nov, 2015 Deficiency of other specifie d B group vitamins E53.8 ; Primary insomnia F51.01 ; Mood disorder F39 and Lumbago with sciatica, right side M54.41 [place] [address] [facility] [id number] [address] [place] [address] Nov, Hyperparathyroidism E21.3 [place] [address] [place] [id number] [address] [place] [address] Nov, Unspecified kidney failure N 19 and Hyperparathyroidism E21.3 [facility] [address] [address] October, Hyperparathyroidism E21.3 [facility] [address] [address] October, [facility] [address] [address] October, Hyperparathyroidism E21.3 [facility] [address] [address] October, Hyperparathyroidism E21.3 [facility] [address] [address] Sep, Hyperparathyroidism E21.3 ; Hypercholesterolemia E78.0 and Arthritis M19.90 [facility] [address] [address] Aug, [facility] [address] [address] Aug, Deficiency of other specifie d B group vitamins E53.8 [facility] [address] [address] Aug, [facility] [address] [address] Jul, Urinary frequency R35.0 [facility] [address] [address] Jul, Urinary frequency R35.0 [facility] [address] [address] Jul, [facility] [address] [address] Jul, [facility] [address] [address] Jun, Pain in left knee M25.562 [facility] [address] [id number] [address] [place] [phone] Jun, [facility] [address] [id number] [address] [place] [phone] May, Swelling of left knee joint M25.462 [facility] [address] [id number] [address] [place] [id number] May, [facility] [address] [id number] [address] [place] [phone] May, [facility] [address] [id number] [address] [place] [id number] May, [facility] [address] [facility] [id number] [address] [place] [id number] Apr, Renal insufficiency N28.9 an d Chronic kidney disease, stage 4 (severe) N18.4 [facility] [address] [facility] [id number] [address] [place] [id number] Apr, Unspecified kidney failure N 19 [facility] [address] [facility] [id number] [address] [place] [phone] Apr, Unspecified kidney failure N 19 [facility] [address] [facility] [id number] [address] [place] [id number] Apr, [facility] [address] [facility] [id number] [address] [place] [id number] Apr, Hyperparathyroidism, unspeci fied 252.00 [facility] [address] [facility] [id number] [address] [place] [phone] Apr, [facility] [address] [facility] [id number] [address] [place] [id number] Mar, [facility] [address] [facility] [id number] [address] [place] [phone] Mar, [facility] [address] [facility] [id number] [address] [place] [id number] Mar, Hyperparathyroidism, unspeci fied 252.00 [facility] [address] [id number] [address] [place] [address] Feb, [facility] [address] [facility] [id number] [address] [place] [address] Feb, Otalgia 388.70 [facility] [address] [facility] [id number] [address] [place] [id number] Feb, [facility] [address] [id number] [address] [place] [address] Feb, [facility] [address] [facility] [id number] [address] [place] [address] Jan, [facility] [address] [facility] [id number] [address] [place] [address] Jan, Hyperparathyroidism, unspeci fied 252.00 [facility] [address] [facility] [id number] [address] [place] [address] Jan, [facility] [address] [facility] [id number] [address] [place] [address] Jan, Other B-complex deficiencies 266.2 and Hyperparathyroidism, unspecified 252.00 [facility] [address] [facility] [id number] [address] [place] [address] Jan, [facility] [address] [facility] [id number] [address] [place] [address] Jan, [facility] [address] [facility] [id number] [address] [place] [phone] Jan, [facility] [address] [facility] [id number] [address] [place] [phone] Dec, [facility] [address] [facility] [id number] [address] [place] [address] Dec, [facility] [address] [facility] [id number] [address] [place] [address] Dec, [facility] [address] [id number] [address] [place] [address] 15 Nov, 2014 Routine check-up V70.0 and P re-op exam V72.84 [facility] [address] [id number] [address] [place] [address] 12 Nov, 2014 [facility] [address] [id number] [address] [place] [phone] Nov, [facility] [address] [id number] [address] [place] [address] October, [facility] [address] [id number] [address] [place] [address] October, Other B-complex deficiencies 266.2 [facility] [address] [id number] [address] [place] [id number] October, [facility] [address] [id number] [address] [place] [address] 14 Sep, 2014 [facility] [address] [id number] [address] [place] [address] Sep, [facility] [address] [id number] [address] [place] [id number] 20 Aug, 2014 [facility] [address] [id number] [address] [place] [address] 20 Aug, 2014 [facility] [address] [id number] [address] [place] [id number] 17 Aug, 2014 [facility] [address] [id number] [address] [place] [id number] 17 Aug, 2014 [facility] [address] [id number] [address] [place] [phone] Aug, [facility] [address] [id number] [address] [place] [address] Aug, [facility] [address] [id number] [address] [place] [id number] 18 Jul, 2014 [facility] [address] [id number] [address] [place] [address], [place] [address] Jul, 2014 [facility] [address] [id number] [address] [place] [address], [place] [address] Jul, 2014 [facility] [address] [id number] [address] [place] [address], [place] [address] Jul, 2014 [facility] [address] [id number] [address] [place] [address], [place] [address] Jul, 2014 [facility] [address] [id number] [address] [place] [address], [place] [address] Jul, 2014 [facility] [address] [id number] [address] [place] [address], [place] [address] Jul, 2014 [facility] [address] [id number] [address] [place] [address], [place] [address] Jul, 2014 [facility] [address] [id number] [address] [place] [address], [place] [address] Jul, 2014 [facility] [address] [id number] [address] [place] [address], [place] [address] Jul, 2014 [facility] [address] [id number] [address] [place] [address], [place] [address] Jul, 2014 [facility] [address] [id number] [address] [place] [address], [place] [address] Jul, 2014 [facility] [address] [id number] [address] [place] [address], [place] [address] Jul, 2014 [facility] [address] [id number] [address] [place] [address], [place] [address] Jul, 2014 [facility] [address] [id number] [address] [place] [address], [place] [address] Jun, [facility] [address] [id number] [address] [place] [address], [place] [address] Jun, [facility] [address] [id number] [address] [place] [address], [place] [address] Jun, [facility] [address] [id number] [address] [place] [address], [place] [address] Jun, [facility] [address] [id number] [address] [place] [address], [place] [address] Jun, [facility] [address] [id number] [address] [place] [address], [place] [address] Jun, [facility] [address] [id number] [address] [place] [address], [place] [address] Jun, [facility] [address] [id number] [address] [place] [address], [place] [address] Jun, [facility] [address] [id number] [address] [place] [address], [place] [address] Jun, [facility] [address] [id number] [address] [place] [address], [place] [address] Jun, [facility] [address] [id number] [address] [place] [address], [place] [address] Jun, [facility] [address] [id number] [address] [place] [address], [place] [address] Jun, [facility] [address] [id number] [address] [place] [address], [place] [address] Jun, [facility] [address] [id number] [address] [place] [address], [place] [address] Jun, [facility] [address] [id number] [address] [place] [address], [place] [address] May, [facility] [address] [id number] [address] [place] [address], [place] [address] May, [facility] [address] [id number] [address] [place] [address], [place] [address] May, [facility] [address] [id number] [address] [address] May, [facility] [address] [id number] [address] [place] [address], [place] [address] Apr, [facility] [address] [id number] [address] [place] [address], [place] [address] Apr, [facility] [address] [id number] [address] [place] [address], [place] [address] Apr, [facility] [address] [id number] [address] [place] [id number] Apr, [facility] [address] [id number] [address] [place] [address], [place] [address] Apr, [facility] [address] [id number] [address] [place] [address] Apr, [facility] [address] [id number] [address] [place] [address], [place] [address] Mar, [facility] [address] [id number] [address] [place] [address], [place] [address] Mar, [facility] [address] [id number] [address] [place] [address], [place] [address] Mar, [facility] [address] [id number] [address] [place] [address], [place] [address] Mar, [facility] [address] [id number] [address] [place] [address] 15 Mar, 2014 [facility] [address] [id number] [address] [place] [address] 15 Mar, 2014 [facility] [address] [id number] [address] [place] [address], [place] [address] Mar, [facility] [address] [id number] [address] [place] [address], [place] [address] Mar, [facility] [address] [id number] [address] [place] [address] Mar, [facility] [address] [id number] [address] [place] [address], [place] [address] 07 Mar, 2014 [facility] [address] [id number] [address] [place] [address], [place] [address] 07 Mar, 2014 [facility] [address] [id number] [address] [place] [address], [place] [address] 07 Mar, 2014 [facility] [address] [id number] [address] [place] [address], [place] [address] 06 Mar, 2014 [facility] [address] [id number] [address] [place] [address], [place] [address] 26 Feb, 2013 [facility] [address] [id number] [address] [place] [address], [place] [address] 26 Feb, 2014 [facility] [address] [id number] [address] [place] [address], [place] [address] 23 Feb, 2013 [facility] [address] [id number] [address] [place] [address], [place] [address] 23 Feb, 2013 [facility] [address] [id number] [address] [place] [address], [place] [address] 19 Feb, 2014 [facility] [address] [id number] [address] [place] [address], [place] [address] 19 Feb, 2014 [facility] [address] [id number] [address] [place] [address], [place] [address] 13 Feb, 2014 [facility] [address] [id number] [address] [place] [address], [place] [address] 13 Feb, 2014 [facility] [address] [id number] [address] [place] [address], [place] [address] 12 Feb, 2014 [facility] [address] [id number] [address] [place] [address], [place] [address] 12 Feb, 2014 [facility] [address] [id number] [address] [place] [address], [place] [address] 15 Jan, 2014 [facility] [address] [id number] [address] [place] [address], [place] [address] Jan, [facility] [address] [id number] [facility] [place] [address] Dec, [facility] [address] [id number] [address] [place] [address], [place] [address] Dec, [facility] [address] [id number] [address] [place] [address], [place] [address] Dec, [facility] [address] [id number] [address] [place] [address], [place] [address] Dec, [facility] [address] [id number] [address] [place] [address], [place] [address] Dec, [facility] [address] [id number] [address] [place] [address], [place] [address] Dec, [facility] [address] [id number] [address] [place] [address], [place] [address] Nov, [facility] [address] [id number] [address] [place] [address], [place] [address] Nov, [facility] [address] [id number] [address] [place] [address], [place] [address] Nov, [facility] [address] [id number] [address] [place] [address], [place] [address] Nov, [facility] [address] [id number] [address] [place] [address], [place] [address] October, [facility] [address] [id number] [address] [place] [address], [place] [address] October, [facility] [address] [id number] [address] [place] [address], [place] [address] October, [facility] [address] [id number] [address] [place] [address], [place] [address] October, [facility] [address] [id number] [address] [place] [address], [place] [address] October, [facility] [address] [id number] [address] [place] [address], [place] [address] October, [facility] [address] [id number] [address] [place] [address], [place] [address] October, [facility] [address] [id number] [address] [place] [address], [place] [address] October, [facility] [address] [id number] [address] [place] [address], [place] [address] October, [facility] [address] [id number] [address] [place] [address], [place] [address] October, [facility] [address] [id number] [address] [place] [address], [place] [address] October, [facility] [address] [id number] [address] [place] [address], [place] [address] October, [facility] [address] [id number] [address] [place] [address], [place] [address] October, [facility] [address] [id number] [address] [place] [address], [place] [address] October, [facility] [address] [id number] [address] [place] [address], [place] [address] October, [facility] [address] [id number] [address] [place] [address], [place] [address] October, [facility] [address] [id number] [address] [place] [address], [place] [address] Sep, [facility] [address] [id number] [address] [place] [address], [place] [address] Sep, [facility] [address] [id number] [address] [place] [address], [place] [address] Sep, [facility] [address] [id number] [address] [place] [address], [place] [address] Sep, [facility] [address] [id number] [address] [place] [address], [place] [address] Sep, [facility] [address] [id number] [address] [place] [address], [place] [address] Sep, [facility] [address] [id number] [address] [place] [address], [place] [address] Aug, [facility] [address] [id number] [address] [place] [address], [place] [address] Aug, [facility] [address] [id number] [address] [place] [address], [place] [address] Aug, [facility] [address] [id number] [address] [place] [address], [place] [address] Aug, [facility] [address] [id number] [address] [place] [address], [place] [address] Aug, [facility] [address] [id number] [address] [place] [address], [place] [address] Aug, [facility] [address] [id number] [address] [place] [address], [place] [address] Jul, [facility] [address] [id number] [address] [place] [address], [place] [address] Jul, [facility] [address] [id number] [address] [place] [address], [place] [address] Jul, [facility] [address] [id number] [address] [place] [address], [place] [address] Jul, [facility] [address] [id number] [address] [place] [address], [place] [address] Jun, [facility] [address] [id number] [address] [place] [address], [place] [address] Jun, [facility] [address] [id number] [address] [place] [address], [place] [address] May, [facility] [address] [id number] [address] [place] [address], [place] [address] May, [facility] [address] [id number] [address] [address] 10 May, 2013 [facility] [address] [id number] [address] [place] [address], [place] [address] May, [facility] [address] [id number] [address] [place] [address] May, [facility] [address] [id number] [address] [place] [address] Apr, [facility] [address] [id number] [address] [place] [address] Apr, [facility] [address] [id number] [address] [place] [address], [place] [address] Apr, [facility] [address] [id number] [address] [place] [address] Apr, [facility] [address] [id number] [address] [place] [address] Apr, [facility] [address] [id number] [address] [place] [address] Apr, [facility] [address] [id number] [address] [place] [address] 15 Mar, 2013 [facility] [address] [id number] [address] [place] [address] 15 Mar, 2013 [facility] [address] [id number] [address] [place] [address] 14 Mar, 2013 [facility] [address] [id number] [address] [place] [id number] 14 Mar, 2013 [facility] [address] [id number] [address] [place] [id number] 11 Mar, 2013 [facility] [address] [id number] [address] [place] [id number] 11 Mar, 2013 [facility] [address] [id number] [address] [place] [id number] 23 Feb, 2013 [facility] [address] [id number] [address] [place] [address], [place] [address] Feb, [facility] [address] [id number] [address] [place] [address], [place] [address] Feb, [facility] [address] [id number] [address] [place] [address], [place] [address] Jan, [facility] [address] [id number] [address] [place] [address], [place] [address] Jan, [facility] [address] [id number] [address] [place] [address], [place] [address] Jan, [facility] [address] [id number] [address] [place] [address], [place] [address] Jan, [facility] [address] [id number] [address] [place] [address], [place] [address] Jan, [facility] [address] [id number] [address] [place] [address], [place] [address] Jan, [facility] [address] [id number] [address] [place] [address], [place] [address] Dec, [facility] [address] [id number] [address] [place] [address], [place] [address] Dec, [facility] [address] [id number] [address] [place] [address], [place] [address] Dec, [facility] [address] [id number] [address] [place] [address], [place] [address] Dec, [facility] [address] [id number] [address] [place] [address], [place] [address] Dec, [facility] [address] [id number] [address] [place] [address], [place] [address] Dec, [facility] [address] [id number] [address] [place] [address], [place] [address] Nov, [facility] [address] [id number] [address] [place] [address], [place] [address] Nov, [facility] [address] [id number] [address] [place] [address], [place] [address] 18 Nov, 2012 [facility] [address] [id number] [address] [place] [address], [place] [address] Nov, [facility] [address] [id number] [address] [place] [address], [place] [address] Nov, [facility] [address] [id number] [address] [place] [address], [place] [address] Nov, [facility] [address] [id number] [address] [place] [address], [place] [address] October, [facility] [address] [id number] [address] [place] [address], [place] [address] October, [facility] [address] [id number] [address] [place] [address], [place] [address] October, [facility] [address] [id number] [address] [place] [address], [place] [address] October, [facility] [address] [id number] [address] [place] [address], [place] [address] October, [facility] [address] [id number] [address] [place] [address], [place] [address] Sep, [facility] [address] [id number] [address] [place] [address], [place] [address] Sep, [facility] [address] [id number] [address] [place] [address], [place] [address] Sep, [facility] [address] [id number] [address] [place] [address], [place] [address] Sep, [facility] [address] [id number] [address] [place] [address], [place] [address] Sep, [facility] [address] [id number] [address] [place] [address], [place] [address] Aug, [facility] [address] [id number] [address] [place] [address], [place] [address] 07 Aug, 2012 [facility] [address] [id number] [address] [place] [address], [place] [address] 04 Aug, 2012 [facility] [address] [id number] [address] [place] [address], [place] [address] 21 Jul, 2012 [facility] [address] [id number] [address] [place] [address], [place] [address] 20 Jul, 2012 [facility] [address] [id number] [address] [place] [address], [place] [address] 11 Jul, 2012 [facility] [address] [id number] [address] [place] [address], [place] [address] 08 Jul, 2012 [facility] [address] [id number] [address] [place] [address], [place] [address] 06 Jul, 2012 [facility] [address] [id number] [address] [place] [address], [place] [address] 05 Jul, 2012 [facility] [address] [id number] [address] [place] [address], [place] [address] 15 Jun, 2012 [facility] [address] [id number] [address] [place] [address], [place] [address] 16 Apr, 2012 [facility] [address] [id number] [address] [place] [address], [place] [address] 16 Apr, 2012 [facility] [address] [id number] [address] [place] [address], [place] [address] Apr, [facility] [address] [id number] [address] [place] [address], [place] [address] Apr, [facility] [address] [id number] [address] [place] [address], [place] [address] Mar, [facility] [address] [id number] [address] [place] [address], [place] [address] Mar, [facility] [address] [id number] [address] [place] [address], [place] [address] Mar, [facility] [address] [id number] [address] [place] [address], [place] [address] Mar, [facility] [address] [id number] [address] [place] [address], [place] [address] Mar, [facility] [address] [id number] [address] [place] [address], [place] [address] Feb, [facility] [address] [id number] [address] [place] [address], [place] [address] Jan, [facility] [address] [id number] [address] [place] [address], [place] [address] Jan, [facility] [address] [id number] [address] [place] [address], [place] [address] Jan, [facility] [address] [id number] [address] [place] [address], [place] [address] Dec, [facility] [address] [id number] [address] [place] [address], [place] [address] Nov, [facility] [address] [id number] [address] [place] [address], [place] [address] Nov, [facility] [address] [id number] [address] [place] [address], [place] [address] Nov, [facility] [address] [id number] [address] [place] [address], [place] [address] Nov, [facility] [address] [id number] [address] [place] [address], [place] [address] Nov, [facility] [address] [id number] [address] [place] [address], [place] [address] October, [facility] [address] [id number] [address] [place] [address], [place] [address] October, [facility] [address] [id number] [address] [place] [address], [place] [address] October, [facility] [address] [id number] [address] [address] October, [facility] [address] [facility] [id number] [address] [address] October, IMMUNIZATIONS No Known Immunizations SOCIAL HISTORY [...]
--- OUTSIDE RECORDS SUMMARY | 2020-01-25 07:52 | XMS REPORT ---
Author Author Velma CORDERO Organization [facility] Address [address] [place] [address] Care Team Providers Care Instructional Design Specialist Name Role Phone STEPHAN CORDERO Unavailable PROBLEMS Type Condition ICD9-CM Code AMU57-ET Code Onset Dates Condition S tatus SNOMED Code Problem Primary insomnia F51.01 Active 397 2004 Problem Hypercholesteremia E78.0 Active 1 6859801 Problem Corns L84 Active 473897985 Problem Arthritis M19.90 Active 4296838 Problem Hyperparathyroidism E21.3 Active 61652794 Problem 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 Active 47193511 Problem 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 Active 54277634 Problem BPV (benign positional vertigo), bilateral H81.13 Active 464109472 Problem Unspecified kidney failure N19 Act chip 06452567 Problem Myalgia M79.1 Active 65918198 Problem 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 Active 950124994 Problem Mood disorder F39 Active 614629 05 Problem Chronic kidney disease, stage 4 (severe) N18.4 Active 642643454 Problem Primary osteoarthritis of left knee M17.12 Active [id number] Problem Irritable bowel syndrome with both constipation and diarrh ea K58.2 Active 45171161 Problem Body mass index (BMI) of 40.0-44.9 in adult Z68.41 Active 891160867 ALLERGIES No Information ENCOUNTERS Encounter Location Date Diagnosis [facility] [address] [facility] [id number] [address] [place] [id number] Nov, Inflammatory spondylopathy o f sacral region M46.98 [facility] [address] [facility] [id number] [address] [place] [id number] Nov, [facility] [address] [facility] [id number] [address] [place] [id number] 14 Nov, 2018 Labyrinthitis of left ear H8 3.02 [facility] [address] [id number] [address] [place] [id number] Nov, Arthritis M19.90 [facility] [address] [id number] [address] [place] [id number] Sep, Arthritis M19.90 [facility] [address] [facility] [id number] [address] [place] [id number] Sep, Renal insufficiency N28.9 an d Unspecified kidney failure N19 [facility] [address] [id number] [address] [place] [id number] Sep, Renal insufficiency N28.9 an d Unspecified kidney failure N19 [facility] [address] [id number] [address] [place] [id number] Sep, Arthritis M19.90 [facility] [address] [id number] [address] [place] [id number] Aug, Exercise counseling Z71.82 [facility] [address] [id number] [address] [place] [id number] Aug, [facility] [address] [facility] [id number] [address] [place] [id number] Jul, Labyrinthitis of left ear H8 3.02 [facility] [address] [facility] [id number] [address] [place] [id number] Jul, Labyrinthitis of left ear H8 3.02 [facility] [address] [id number] [address] [place] [id number] Jul, Exercise counseling Z71.82 [facility] [address] [facility] [id number] [address] [place] [id number] 18 Jul, 2018 [facility] [address] [facility] [id number] [address] [place] [id number] 14 Jul, [address] [facility] [address] [facility] [id number] [address] [place] [id number] 13 Jul, 2018 Encounter for Medicare annua l wellness exam Z00.00 ; Chronic kidney disease, stage 4 (severe) N18.4 ; Body mass index (BMI) of 40.0-44.9 in adult Z68.41 ; Hyperparathyroidism E21.3 and BMI 40.0-44.9, adult Z68.41 [facility] [address] [place] [id number] [address] [place] [id number] 13 Jul, 2018 Encounter for Medicare annua l wellness exam Z00.00 ; Chronic kidney disease, stage 4 (severe) N18.4 ; Hyperparathyroidism E21.3 ; Body mass index (BMI) of 40.0-44.9 in adult Z68.41 and Encounter for immunization Z23 [place] [address] [place] [id number] 11 Jul, 2018 Tail bone pain M53.3 [place] [address] [id number] 29 Jun, 2018 Exercise counseling Z71.82 [place] [address] [address] Jun, Labyrinthitis of left ear H8 3.02 [place] [address] [place] [id number] [address] [place] [id number] Jun, Tail bone pain M53.3 ; Irrit able bowel syndrome with both constipation and diarrhea K58.2 and Dysfunction of left eustachian tube H69.82 [place] [address] [place] [id number] [address] [place] [id number] Jun, Exercise counseling Z71.82 [place] [address] [facility] [id number] [address] [place] [id number] Jun, Arthritis M19.90 [place] [address] [place] [id number] [place] [id number] 16 Jun, 2018 Irritable bowel syndrome wit h both constipation and diarrhea K58.2 ; Tail bone pain M53.3 and Dysfunction of left eustachian tube H69.82 [facility] [address] [id number] [address] [place] [id number] Jun, Exercise counseling Z71.82 [facility] [address] [id number] [address] [place] [id number] Jun, Exercise counseling Z71.82 [facility] [address] [id number] [address] [place] [id number] Jun, Labyrinthitis of left ear H8 3.02 [facility] [address] [id number] [address] [place] [id number] May, Exercise counseling Z71.82 [facility] [address] [id number] [address] [place] [id number] May, Arthritis M19.90 [facility] [address] [id number] [address] [place] [id number] May, Exercise counseling Z71.82 [facility] [address] [id number] [address] [place] [id number] May, Exercise counseling Z71.82 [facility] [address] [id number] [address] [place] [id number] May, Labyrinthitis of left ear H8 3.02 [facility] [address] [id number] [address] [place] [id number] May, Exercise counseling Z71.82 [facility] [address] [id number] [address] [place] [id number] Apr, Arthritis M19.90 [facility] [address] [id number] [address] [place] [id number] Apr, Exercise counseling Z71.82 [facility] [address] [id number] [address] [place] [id number] Apr, Exercise counseling Z71.82 [facility] [address] [id number] [address] [place] [id number] Apr, Primary osteoarthritis of le ft knee M17.12 [facility] [address] [place] [id number] [address] [place] [id number] Apr, Labyrinthitis of left ear H8 3.02 [facility] [address] [place] [id number] [address] [place] [id number] Mar, Arthritis M19.90 [place] [address] [address] Mar, [place] [address] [place] [id number] [place] [phone] Mar, Chronic kidney disease, stag e 4 (severe) N18.4 [place] [address] [place] [id number] [place] [phone] Mar, Chronic kidney disease, stag e 4 (severe) N18.4 [place] [address] [address] Mar, Labyrinthitis of left ear H8 3.02 [place] [id number] [place] [id number] [address] [place] [phone] Mar, Chronic kidney disease, stag e 4 (severe) N18.4 ; Knee pain, left anterior M25.562 ; Deficiency of other specified B group vitamins E53.8 and Encounter for immunization Z23 [place] [address] [place] [id number] [address] [place] [id number] Mar, Arthritis M19.90 [place] [address] [place] [id number] [address] [place] [id number] Feb, Labyrinthitis of left ear H8 3.02 [place] [address] [place] [id number] [place] [id number] Feb, Arthritis M19.90 [place] [address] [place] [id number] [address] [place] [id number] Jan, Labyrinthitis of left ear H8 3.02 [place] [address] [place] [id number] [address] [place] [phone] Jan, Arthritis M19.90 [place] [address] [address] Dec, Labyrinthitis of left ear H8 3.02 [place] [address] [address] Nov, Arthritis M19.90 [place] [address] [address] Nov, Labyrinthitis of left ear H8 3.02 [place] [address] [address] Nov, BMI 40.0-44.9, adult Z68.41 ; Chronic kidney disease, stage 4 (severe) N18.4 and Acute right-sided thoracic back pain M54.6 [place] [address] [address] October, Labyrinthitis of left ear H8 3.02 and Arthritis M19.90 [place] [address] [address] Sep, BPV (benign positional verti go), bilateral H81.13 ; Dysfunction of left eustachian tube H69.82 and BMI 40.0-44.9, adult Z68.41 [place] [address] [address] Sep, Labyrinthitis of left ear H8 3.02 and Arthritis M19.90 [place] [address] [address] Sep, [place] [address] [address] Sep, [place] [address] [address] Sep, Chronic kidney disease, stag e 4 (severe) N18.4 [facility] [address] [facility] [id number] [address] [place] [id number] Sep, Chronic kidney disease, stag e 4 (severe) N18.4 [facility] [address] [id number] [address] [place] [id number] Aug, Labyrinthitis of left ear H8 3.[address] [facility] [address] [id number] [address] [place] [id number] Aug, [facility] [address] [id number] [address] [place] [id number] Jul, [facility] [address] [facility] [id number] [address] [place] [id number] Jul, Arthritis M19.90 and Labyrin thitis of left ear H83.02 [facility] [address] [place] [id number] [address] [place] [id number] Jul, [facility] [address] [facility] [id number] [address] [place] [id number] Jun, [facility] [address] [facility] [id number] [address] [place] [id number] Jun, Arthritis M19.90 and Labyrin thitis of left ear H83.02 [facility] [address] [facility] [id number] [address] [place] [id number] Jun, Pre-op evaluation Z01.818 ; BMI 40.0-44.9, adult Z68.41 and Encounter for immunization Z23 [facility] [address] [facility] [id number] [address] [place] [id number] May, Arthritis M19.90 and Labyrin thitis of left ear H83.02 [facility] [address] [facility] [id number] [address] [place] [id number] Apr, Labyrinthitis of left ear H8 3.02 [facility] [address] [id number] [address] [place] [id number] Apr, Arthritis M19.90 and Labyrin thitis of left ear H83.02 [facility] [address] [facility] [id number] [address] [place] [id number] 10 Mar, 2017 Arthritis M19.90 and Labyrin thitis of left ear H83.02 [facility] [address] [facility] [id number] [address] [place] [id number] 05 Mar, 2017 Chronic kidney disease, stag e 4 (severe) N18.4 [facility] [address] [facility] [id number] [address] [place] [id number] Feb, Arthritis M19.90 and Labyrin thitis of left ear H83.02 [place] [address] [facility] [id number] [address] [place] [id number] Jan, Labyrinthitis of left ear H8 3.02 and Deficiency of other specified B group vitamins E53.8 [place] [address] [facility] [id number] [address] [place] [phone] Dec, Arthritis M19.90 [place] [address] [facility] [id number] [address] [place] [id number] Dec, BPV (benign positional verti go), bilateral H81.13 [place] [address] [facility] [id number] [address] [place] [id number] Dec, [facility] [address] [facility] [id number] [address] [place] [phone] Dec, [facility] [address] [id number] [address] [place] [id number] Dec, [facility] [address] [facility] [id number] [address] [place] [id number] Nov, Arthritis M19.90 and Deficie ncy of other specified B group vitamins E53.8 [place] [address] [facility] [id number] [address] [place] [id number] Nov, Arthritis M19.90 [facility] [address] [id number] [address] [place] [id number] Nov, Hyperparathyroidism E21.3 [facility] [address] [id number] [address] [place] [id number] October, [facility] [address] [facility] [id number] [address] [place] [id number] October, Hyperparathyroidism E21.3 [facility] [address] [facility] [id number] [address] [place] [id number] October, [facility] [address] [facility] [id number] [address] [place] [phone] October, Renal insufficiency N28.9 an d Hyperparathyroidism E21.3 [facility] [address] [facility] [id number] [address] [place] [id number] October, [facility] [address] [facility] [id number] [address] [place] [id number] October, Renal insufficiency N28.9 an d Hyperparathyroidism E21.3 [facility] [address] [facility] [id number] [address] [place] [id number] October, Arthritis M19.90 [facility] [address] [facility] [id number] [address] [place] [id number] Sep, [facility] [address] [facility] [id number] [address] [place] [id number] Sep, Lumbar neuritis M54.16 ; Tho racic abscess J86.9 and Deficiency of other specified B group vitamins E53.8 [facility] [address] [facility] [id number] [address] [place] [id number] Sep, [facility] [address] [facility] [id number] [address] [place] [id number] Aug, Arthritis M19.90 [facility] [address] [facility] [id number] [address] [place] [id number] Aug, Hyperparathyroidism E21.3 [facility] [address] [facility] [id number] [address] [place] [id number] Aug, Hyperparathyroidism E21.3 [facility] [address] [facility] [id number] [address] [place] [id number] Aug, Arthritis M19.90 [facility] [address] [facility] [id number] [address] [place] [id number] Jul, Mass of throat R22.1 [facility] [address] [facility] [id number] [address] [place] [id number] Jul, [facility] [address] [facility] [id number] [address] [place] [id number] Jul, Arthritis M19.90 [facility] [address] [facility] [id number] [address] [place] [id number] Jun, Arthritis M19.90 [facility] [address] [facility] [id number] [address] [place] [phone] Jun, [facility] [address] [facility] [id number] [address] [place] [id number] Jun, Renal insufficiency N28.9 an d 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 [facility] [address] [facility] [id number] [address] [place] [id number] 05 Jun, 2016 Medicare welcome exam Z00.00 ; Encounter for immunization Z23 ; Arthritis M19.90 ; Medicare annual wellness visit, initial Z00.00 ; Medicare annual wellness visit, subsequent Z00.00 and Deficiency of other specified B group vitamins E53.8 [facility] [address] [facility] [id number] [address] [place] [phone] May, Renal insufficiency N28.9 an d 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 [facility] [address] [facility] [id number] [address] [place] [id number] May, Renal insufficiency N28.9 [facility] [address] [facility] [id number] [address] [place] [id number] 16 May, [address] [facility] [address] [facility] [id number] [address] [place] [phone] 14 May, 2016 [facility] [address] [facility] [id number] [address] [place] [id number] 16 Apr, 2016 [facility] [address] [facility] [id number] [address] [place] [id number] [address] Apr, [address] [facility] [address] [facility] [id number] [address] [place] [id number] 14 Apr, 2016 Mass of throat R22.1 [facility] [address] [facility] [id number] [address] [place] [id number] [address] [facility] [address] [facility] [id number] [address] [place] [id number] Apr, Mass of throat R22.1 [facility] [address] [facility] [id number] [address] [place] [phone] 04 Apr, 2016 Mass of throat R22.1 [facility] [address] [facility] [id number] [address] [place] [phone] Mar, [facility] [address] [facility] [id number] [address] [place] [phone] Mar, [facility] [address] [facility] [id number] [address] [place] [phone] Mar, [facility] [address] [place] [id number] [address] [place] [id number] 24 Mar, 2016 Parathyroid abnormality E21. 5 and Encounter for immunization Z23 [facility] [address] [facility] [id number] [address] [place] [id number] 17 Mar, 2016 [facility] [address] [facility] [id number] [address] [place] [id number] 11 Mar, 2016 [facility] [address] [place] [id number] [address] [place] [phone] Feb, Renal insufficiency N28.9 an d Hyperparathyroidism E21.3 [facility] [address] [facility] [id number] [address] [place] [phone] Feb, [facility] [address] [facility] [id number] [address] [place] [id number] 15 Feb, 2016 Renal insufficiency N28.9 an d Hyperparathyroidism E21.3 [place] [address] [facility] [id number] [address] [place] [id number] [address], [address] [facility] [address] [facility] [id number] [address] [place] [phone] Feb, [place] [address] [address] Feb, [place] [address] [address] Jan, [place] [address] [address] Jan, Arthritis M19.90 ; Lumbago w ith sciatica, right side M54.41 and Other chronic pain G89.29 [place] [address] [address] Jan, [place] [address] [address] Dec, Arthritis M19.90 ; Lumbago w ith sciatica, right side M54.41 and Other chronic pain G89.29 [place] [id number] [place] [address] 16 Nov, 2015 Deficiency of other specifie d B group vitamins E53.8 ; Primary insomnia F51.01 ; Mood disorder F39 and Lumbago with sciatica, right side M54.41 [place] [address] [facility] [id number] [address] [place] [id number] Nov, Hyperparathyroidism E21.3 [place] [address] [place] [id number] [address] [place] [phone] Nov, Unspecified kidney failure N [address] [facility] [address] [address] October, Hyperparathyroidism E21.3 [facility] [address] [address] October, [facility] [address] [address] October, Hyperparathyroidism E21.3 [facility] [address] [address] October, Hyperparathyroidism E21.3 [facility] [address] [address] Sep, Hyperparathyroidism E21.3 ; Hypercholesterolemia E78.[address] [facility] [address] [address] Aug, [facility] [address] [address] Aug, Deficiency of other specifie d B group vitamins E53.8 [facility] [address] [address] Aug, [facility] [address] [address] Jul, Urinary frequency R35.0 [facility] [address] [address] Jul, Urinary frequency R35.0 [facility] [address] [address] Jul, [facility] [address] [address] Jul, [facility] [address] [address] Jun, Pain in left knee M25.562 [facility] [address] [id number] [address] [place] [id number] Jun, [facility] [address] [id number] [address] [place] [id number] May, Swelling of left knee joint M25.462 [facility] [address] [id number] [address] [place] [phone] May, [facility] [address] [id number] [address] [place] [phone] May, [facility] [address] [id number] [address] [place] [id number] May, [facility] [address] [facility] [id number] [address] [place] [phone] Apr, Renal insufficiency N28.9 an d Chronic kidney disease, stage 4 (severe) N18.4 [facility] [address] [facility] [id number] [address] [place] [id number] Apr, Unspecified kidney failure N 19 [facility] [address] [facility] [id number] [address] [place] [phone] Apr, Unspecified kidney failure N 19 [facility] [address] [facility] [id number] [address] [place] [phone] Apr, [facility] [address] [facility] [id number] [address] [place] [phone] Apr, Hyperparathyroidism, unspeci fied 252.00 [facility] [address] [facility] [id number] [address] [place] [phone] Apr, [facility] [address] [facility] [id number] [address] [place] [phone] Mar, [facility] [address] [facility] [id number] [address] [place] [phone] Mar, [facility] [address] [facility] [id number] [address] [place] [phone] Mar, Hyperparathyroidism, unspeci fied 252.00 [facility] [address] [id number] [address] [place] [id number] Feb, [facility] [address] [facility] [id number] [address] [place] [phone] Feb, Otalgia 388.70 [facility] [address] [facility] [id number] [address] [place] [phone] Feb, [facility] [address] [id number] [address] [place] [phone] Feb, [facility] [address] [facility] [id number] [address] [place] [id number] Jan, [facility] [address] [facility] [id number] [address] [place] [phone] Jan, Hyperparathyroidism, unspeci fied 252.00 [facility] [address] [facility] [id number] [address] [place] [phone] Jan, [facility] [address] [facility] [id number] [address] [place] [phone] Jan, Other B-complex deficiencies 266.2 and Hyperparathyroidism, unspecified [address] [facility] [address] [facility] [id number] [address] [place] [address] Jan, [facility] [address] [facility] [id number] [address] [place] [phone] Jan, [facility] [address] [facility] [id number] [address] [place] [phone] Jan, [facility] [address] [facility] [id number] [address] [place] [id number] Dec, [facility] [address] [facility] [id number] [address] [place] [phone] Dec, [facility] [address] [facility] [id number] [address] [place] [phone] Dec, [facility] [address] [id number] [address] [place] [id number] 15 Nov, 2014 Routine check-up V70.0 and P re-op exam V72.84 [facility] [address] [id number] [address] [place] [id number] 12 Nov, 2014 [facility] [address] [id number] [address] [place] [phone] Nov, [facility] [address] [id number] [address] [place] [address] October, [facility] [address] [id number] [address] [place] [phone] October, Other B-complex deficiencies 266.2 [facility] [address] [id number] [address] [place] [phone] October, [facility] [address] [id number] [address] [place] [id number] 14 Sep, 2014 [facility] [address] [id number] [address] [place] [id number] Sep, [facility] [address] [id number] [address] [place] [id number] 20 Aug, 2014 [facility] [address] [id number] [address] [place] [id number] 20 Aug, 2014 [facility] [address] [id number] [address] [place] [id number] 17 Aug, 2014 [facility] [address] [id number] [address] [place] [id number] 17 Aug, 2014 [facility] [address] [id number] [address] [place] [phone] Aug, [facility] [address] [id number] [address] [place] [phone] Aug, [facility] [address] [id number] [address] [place] [id number] 18 Jul, 2014 [facility] [address] [id number] [address] [place] [address], [place] [address] Jul, 2014 [facility] [address] [id number] [address] [place] [address], [place] [address] Jul, 2014 [facility] [address] [id number] [address] [place] [address], [place] [address] Jul, 2014 [facility] [address] [id number] [address] [place] [address], [place] [address] Jul, 2014 [facility] [address] [id number] [address] [place] [address], [place] [address] Jul, 2014 [facility] [address] [id number] [address] [place] [address], [place] [address] Jul, 2014 [facility] [address] [id number] [address] [place] [address], [place] [address] Jul, 2014 [facility] [address] [id number] [address] [place] [address], [place] [address] Jul, 2014 [facility] [address] [id number] [address] [place] [address], [place] [address] Jul, 2014 [facility] [address] [id number] [address] [place] [address], [place] [address] Jul, 2014 [facility] [address] [id number] [address] [place] [address], [place] [address] Jul, 2014 [facility] [address] [id number] [address] [place] [address], [place] [address] Jul, 2014 [facility] [address] [id number] [address] [place] [address], [place] [address] Jul, 2014 [facility] [address] [id number] [address] [place] [address], [place] [address] Jun, [facility] [address] [id number] [address] [place] [address], [place] [address] Jun, [facility] [address] [id number] [address] [place] [address], [place] [address] Jun, [facility] [address] [id number] [address] [place] [address], [place] [address] Jun, [facility] [address] [id number] [address] [place] [address], [place] [address] Jun, [facility] [address] [id number] [address] [place] [address], [place] [address] Jun, [facility] [address] [id number] [address] [place] [address], [place] [address] Jun, [facility] [address] [id number] [address] [place] [address], [place] [address] Jun, [facility] [address] [id number] [address] [place] [address], [place] [address] Jun, [facility] [address] [id number] [address] [place] [address], [place] [address] Jun, [facility] [address] [id number] [address] [place] [address], [place] [address] Jun, [facility] [address] [id number] [address] [place] [address], [place] [address] Jun, [facility] [address] [id number] [address] [place] [address], [place] [address] Jun, [facility] [address] [id number] [address] [place] [address], [place] [address] Jun, [facility] [address] [id number] [address] [place] [address], [place] [address] May, [facility] [address] [id number] [address] [place] [address], [place] [address] May, [facility] [address] [id number] [address] [place] [address], [place] [address] May, [facility] [address] [id number] [address] [place] [address] May, [facility] [address] [id number] [address] [place] [address], [place] [address] Apr, [facility] [address] [id number] [address] [place] [address], [place] [address] Apr, [facility] [address] [id number] [address] [place] [address], [place] [address] Apr, [facility] [address] [id number] [address] [place] [address] Apr, [facility] [address] [id number] [address] [place] [address], [place] [address] Apr, [facility] [address] [id number] [address] [place] [address] Apr, [facility] [address] [id number] [address] [place] [address], [place] [address] Mar, [facility] [address] [id number] [address] [place] [address], [place] [address] Mar, [facility] [address] [id number] [address] [place] [address], [place] [address] Mar, [facility] [address] [id number] [address] [place] [address], [place] [address] Mar, [facility] [address] [id number] [address] [place] [address] 15 Mar, 2014 [facility] [address] [id number] [address] [place] [address] 15 Mar, 2014 [facility] [address] [id number] [address] [place] [address], [place] [address] Mar, [facility] [address] [id number] [address] [place] [address], [place] [address] Mar, [facility] [address] [id number] [address] [place] [address] Mar, [facility] [address] [id number] [address] [place] [address], [place] [address] 07 Mar, 2014 [facility] [address] [id number] [address] [place] [address], [place] [address] 07 Mar, 2014 [facility] [address] [id number] [address] [place] [address], [place] [address] 07 Mar, 2014 [facility] [address] [id number] [address] [place] [address], [place] [address] 06 Mar, 2014 [facility] [address] [id number] [address] [place] [address], [place] [address] 26 Feb, 2013 [facility] [address] [id number] [address] [place] [address], [place] [address] 26 Feb, 2014 [facility] [address] [id number] [address] [place] [address], [place] [address] 23 Feb, 2013 [facility] [address] [id number] [address] [place] [address], [place] [address] 23 Feb, 2013 [facility] [address] [id number] [address] [place] [address], [place] [address] 19 Feb, 2014 [facility] [address] [id number] [address] [place] [address], [place] [address] 19 Feb, 2014 [facility] [address] [id number] [address] [place] [address], [place] [address] 13 Feb, 2014 [facility] [address] [id number] [address] [place] [address], [place] [address] 13 Feb, 2014 [facility] [address] [id number] [address] [place] [address], [place] [address] 12 Feb, 2014 [facility] [address] [id number] [address] [place] [address], [place] [address] 12 Feb, 2014 [facility] [address] [id number] [address] [place] [address], [place] [address] 15 Jan, 2014 [facility] [address] [id number] [address] [place] [address], [place] [address] Jan, [facility] [address] [id number] [facility] [place] [address] Dec, [facility] [address] [id number] [address] [place] [address], [place] [address] Dec, [facility] [address] [id number] [address] [place] [address], [place] [address] Dec, [facility] [address] [id number] [address] [place] [address], [place] [address] Dec, [facility] [address] [id number] [address] [place] [address], [place] [address] Dec, [facility] [address] [id number] [address] [place] [address], [place] [address] Dec, [facility] [address] [id number] [address] [place] [address], [place] [address] Nov, [facility] [address] [id number] [address] [place] [address], [place] [address] Nov, [facility] [address] [id number] [address] [place] [address], [place] [address] Nov, [facility] [address] [id number] [address] [place] [address], [place] [address] Nov, [facility] [address] [id number] [address] [place] [address], [place] [address] October, [facility] [address] [id number] [address] [place] [address], [place] [address] October, [facility] [address] [id number] [address] [place] [address], [place] [address] October, [facility] [address] [id number] [address] [place] [address], [place] [address] October, [facility] [address] [id number] [address] [place] [address], [place] [address] October, [facility] [address] [id number] [address] [place] [address], [place] [address] October, [facility] [address] [id number] [address] [place] [address], [place] [address] October, [facility] [address] [id number] [address] [place] [address], [place] [address] October, [facility] [address] [id number] [address] [place] [address], [place] [address] October, [facility] [address] [id number] [address] [place] [address], [place] [address] October, [facility] [address] [id number] [address] [place] [address], [place] [address] October, [facility] [address] [id number] [address] [place] [address], [place] [address] October, [facility] [address] [id number] [address] [place] [address], [place] [address] October, [facility] [address] [id number] [address] [place] [address], [place] [address] October, [facility] [address] [id number] [address] [place] [address], [place] [address] October, [facility] [address] [id number] [address] [place] [address], [place] [address] October, [facility] [address] [id number] [address] [place] [address], [place] [address] Sep, [facility] [address] [id number] [address] [place] [address], [place] [address] Sep, [facility] [address] [id number] [address] [place] [address], [place] [address] Sep, [facility] [address] [id number] [address] [place] [address], [place] [address] Sep, [facility] [address] [id number] [address] [place] [address], [place] [address] Sep, [facility] [address] [id number] [address] [place] [address], [place] [address] Sep, [facility] [address] [id number] [address] [place] [address], [place] [address] Aug, [facility] [address] [id number] [address] [place] [address], [place] [address] Aug, [facility] [address] [id number] [address] [place] [address], [place] [address] Aug, [facility] [address] [id number] [address] [place] [address], [place] [address] Aug, [facility] [address] [id number] [address] [place] [address], [place] [address] Aug, [facility] [address] [id number] [address] [place] [address], [place] [address] Aug, [facility] [address] [id number] [address] [place] [address], [place] [address] Jul, [facility] [address] [id number] [address] [place] [address], [place] [address] Jul, [facility] [address] [id number] [address] [place] [address], [place] [address] Jul, [facility] [address] [id number] [address] [place] [address], [place] [address] Jul, [facility] [address] [id number] [address] [place] [address], [place] [address] Jun, [facility] [address] [id number] [address] [place] [address], [place] [address] Jun, [facility] [address] [id number] [address] [place] [address], [place] [address] May, [facility] [address] [id number] [address] [place] [address], [place] [address] May, [facility] [address] [id number] [address] [place] [address] 10 May, 2013 [facility] [address] [id number] [address] [place] [address], [place] [address] May, [facility] [address] [id number] [address] [place] [address] May, [facility] [address] [id number] [address] [place] [address] Apr, [facility] [address] [id number] [address] [place] [address] Apr, [facility] [address] [id number] [address] [place] [address], [place] [address] Apr, [facility] [address] [id number] [address] [place] [address] Apr, [facility] [address] [id number] [address] [place] [address] Apr, [facility] [address] [id number] [address] [place] [address] Apr, [facility] [address] [id number] [address] [place] [address] 15 Mar, 2013 [facility] [address] [id number] [address] [place] [address] 15 Mar, 2013 [facility] [address] [id number] [address] [place] [address] 14 Mar, 2013 [facility] [address] [id number] [address] [place] [address] 14 Mar, 2013 [facility] [address] [id number] [address] [place] [address] 11 Mar, 2013 [facility] [address] [id number] [address] [place] [address] 11 Mar, 2013 [facility] [address] [id number] [address] [place] [address] 23 Feb, 2013 [facility] [address] [id number] [address] [place] [address], [place] [address] Feb, [facility] [address] [id number] [address] [place] [address], [place] [address] Feb, [facility] [address] [id number] [address] [place] [address], [place] [address] Jan, [facility] [address] [id number] [address] [place] [address], [place] [address] Jan, [facility] [address] [id number] [address] [place] [address], [place] [address] Jan, [facility] [address] [id number] [address] [place] [address], [place] [address] Jan, [facility] [address] [id number] [address] [place] [address], [place] [address] Jan, [facility] [address] [id number] [address] [place] [address], [place] [address] Jan, [facility] [address] [id number] [address] [place] [address], [place] [address] Dec, [facility] [address] [id number] [address] [place] [address], [place] [address] Dec, [facility] [address] [id number] [address] [place] [address], [place] [address] Dec, [facility] [address] [id number] [address] [place] [address], [place] [address] Dec, [facility] [address] [id number] [address] [place] [address], [place] [address] Dec, [facility] [address] [id number] [address] [place] [address], [place] [address] Dec, [facility] [address] [id number] [address] [place] [address], [place] [address] Nov, [facility] [address] [id number] [address] [place] [address], [place] [address] Nov, [facility] [address] [id number] [address] [place] [address], [place] [address] 18 Nov, 2012 [facility] [address] [id number] [address] [place] [address], [place] [address] Nov, [facility] [address] [id number] [address] [place] [address], [place] [address] Nov, [facility] [address] [id number] [address] [place] [address], [place] [address] Nov, [facility] [address] [id number] [address] [place] [address], [place] [address] October, [facility] [address] [id number] [address] [place] [address], [place] [address] October, [facility] [address] [id number] [address] [place] [address], [place] [address] October, [facility] [address] [id number] [address] [place] [address], [place] [address] October, [facility] [address] [id number] [address] [place] [address], [place] [address] October, [facility] [address] [id number] [address] [place] [address], [place] [address] Sep, [facility] [address] [id number] [address] [place] [address], [place] [address] Sep, [facility] [address] [id number] [address] [place] [address], [place] [address] Sep, [facility] [address] [id number] [address] [place] [address], [place] [address] Sep, [facility] [address] [id number] [address] [place] [address], [place] [address] Sep, [facility] [address] [id number] [address] [place] [address], [place] [address] Aug, [facility] [address] [id number] [address] [place] [address], [place] [address] 07 Aug, 2012 [facility] [address] [id number] [address] [place] [address], [place] [address] 04 Aug, 2012 [facility] [address] [id number] [address] [place] [address], [place] [address] 21 Jul, 2012 [facility] [address] [id number] [address] [place] [address], [place] [address] 20 Jul, 2012 [facility] [address] [id number] [address] [place] [address], [place] [address] 11 Jul, 2012 [facility] [address] [id number] [address] [place] [address], [place] [address] 08 Jul, 2012 [facility] [address] [id number] [address] [place] [address], [place] [address] 06 Jul, 2012 [facility] [address] [id number] [address] [place] [address], [place] [address] 05 Jul, 2012 [facility] [address] [id number] [address] [place] [address], [place] [address] 15 Jun, 2012 [facility] [address] [id number] [address] [place] [address], [place] [address] 16 Apr, 2012 [facility] [address] [id number] [address] [place] [address], [place] [address] 16 Apr, 2012 [facility] [address] [id number] [address] [place] [address], [place] [address] Apr, [facility] [address] [id number] [address] [place] [address], [place] [address] Apr, [facility] [address] [id number] [address] [place] [address], [place] [address] Mar, [facility] [address] [id number] [address] [place] [address], [place] [address] Mar, [facility] [address] [id number] [address] [place] [address], [place] [address] Mar, [facility] [address] [id number] [address] [place] [address], [place] [address] Mar, [facility] [address] [id number] [address] [place] [address], [place] [address] Mar, [facility] [address] [id number] [address] [place] [address], [place] [address] Feb, [facility] [address] [id number] [address] [place] [address], [place] [address] Jan, [facility] [address] [id number] [address] [place] [address], [place] [address] Jan, [facility] [address] [id number] [address] [place] [address], [place] [address] Jan, [facility] [address] [id number] [address] [place] [address], [place] [address] Dec, [facility] [address] [id number] [address] [place] [address], [place] [address] Nov, [facility] [address] [id number] [address] [place] [address], [place] [address] Nov, [facility] [address] [address] [id number] [address] [place] [address], [place] [address] Nov, [facility] [address] [id number] [address] [place] [address], [place] [address] Nov, [facility] [address] [id number] [address] [place] [address], [place] [address] Nov, [facility] [address] [id number] [address] [place] [address], [place] [address] October, [facility] [address] [id number] [address] [place] [address], [place] [address] October, [facility] [address] [id number] [address] [place] [address], [place] [address] October, [facility] [address] [id number] [address] [address] October, [facility] [address] [facility] [id number] [address] [place] [address] October, IMMUNIZATIONS No Known Immunizations SOCIAL HISTORY [...]
--- OUTSIDE RECORDS SUMMARY | 2020-01-25 07:52 | XMS REPORT ---
Author Author Velma CORDERO Organization [facility] Address [address] [place] [address] Care Team Providers Care Feed Research Aide Name Role Phone STEPHAN CORDERO Unavailable PROBLEMS Type Condition ICD9-CM Code [id number] Code Onset Dates Condition S tatus SNOMED Code Problem Primary insomnia F51.01 Active 397 2004 Problem Hypercholesteremia E78.0 Active 1 1175229 Problem Corns L84 Active 440566171 Problem Arthritis M19.90 Active 1212913 Problem Hyperparathyroidism E21.3 Active 06505909 Problem 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 Active 58672873 Problem 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 Active 64364771 Problem BPV (benign positional vertigo), bilateral H81.13 Active 377735384 Problem Unspecified kidney failure N19 Act chip 79075946 Problem Myalgia M79.1 Active 06254502 Problem 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 Active 016393424 Problem Mood disorder F39 Active 598451 05 Problem Chronic kidney disease, stage 4 (severe) N18.4 Active 955642674 Problem Primary osteoarthritis of left knee M17.12 Active [id number] Problem Irritable bowel syndrome with both constipation and diarrh ea K58.2 Active 03198160 Problem Body mass index (BMI) of 40.0-44.9 in adult Z68.41 Active 105551420 ALLERGIES No Information ENCOUNTERS Encounter Location Date Diagnosis [facility] [address] [facility] [id number] [address] [place] [phone] Nov, Inflammatory spondylopathy o f sacral region M46.98 [facility] [address] [facility] [id number] [address] [place] [address] Nov, [facility] [address] [facility] [id number] [address] [place] [address] 14 Nov, 2018 Labyrinthitis of left ear H8 3.02 [facility] [address] [id number] [address] [place] [address] Nov, Arthritis M19.90 [facility] [address] [id number] [address] [place] [address] Sep, Arthritis M19.90 [facility] [address] [facility] [id number] [address] [place] [address] Sep, Renal insufficiency N28.9 an d Unspecified kidney failure N19 [facility] [address] [id number] [address] [place] [phone] Sep, Renal insufficiency N28.9 an d Unspecified kidney failure N19 [facility] [address] [id number] [address] [place] [address] Sep, Arthritis M19.90 [facility] [address] [id number] [address] [place] [address] Aug, Exercise counseling Z71.82 [facility] [address] [id number] [address] [place] [phone] Aug, [facility] [address] [facility] [id number] [address] [place] [phone] Jul, Labyrinthitis of left ear H8 3.02 [facility] [address] [facility] [id number] [address] [place] [address] Jul, Labyrinthitis of left ear H8 3.02 [facility] [address] [id number] [address] [place] [phone] Jul, Exercise counseling Z71.82 [facility] [address] [facility] [id number] [address] [place] [address] 18 Jul, 2018 [facility] [address] [facility] [id number] [address] [place] [address] 14 Jul, 2018 Arthritis M19.90 [facility] [address] [facility] [id number] [address] [place] [address] 13 Jul, 2018 Encounter for Medicare annua l wellness exam Z00.00 ; Chronic kidney disease, stage 4 (severe) N18.4 ; Body mass index (BMI) of 40.0-44.9 in adult Z68.41 ; Hyperparathyroidism E21.3 and BMI 40.0-44.9, adult Z68.41 [facility] [address] [place] [id number] [address] [place] [id number] 13 Jul, 2018 Encounter for Medicare annua l wellness exam Z00.00 ; Chronic kidney disease, stage 4 (severe) N18.4 ; Hyperparathyroidism E21.3 ; Body mass index (BMI) of 40.0-44.9 in adult Z68.41 and Encounter for immunization Z23 [place] [id number] [place] [address] 11 Jul, 2018 Tail bone pain M53.3 [place] [address] [address] 29 Jun, 2018 Exercise counseling Z71.82 [place] [address] [address] Jun, Labyrinthitis of left ear H8 3.02 [place] [address] [place] [id number] [address] [place] [address] Jun, Tail bone pain M53.3 ; Irrit able bowel syndrome with both constipation and diarrhea K58.2 and Dysfunction of left eustachian tube H69.82 [place] [address] [place] [id number] [address] [place] [address] Jun, Exercise counseling Z71.82 [place] [address] [facility] [id number] [address] [place] [address] Jun, Arthritis M19.90 [place] [address] [place] [id number] [place] [address] 16 Jun, 2018 Irritable bowel syndrome wit h both constipation and diarrhea K58.2 ; Tail bone pain M53.3 and Dysfunction of left eustachian tube H69.82 [facility] [address] [id number] [address] [place] [address] Jun, Exercise counseling Z71.82 [facility] [address] [id number] [address] [place] [phone] Jun, Exercise counseling Z71.82 [facility] [address] [id number] [address] [place] [address] Jun, Labyrinthitis of left ear H8 3.02 [facility] [address] [id number] [address] [place] [address] May, Exercise counseling Z71.82 [facility] [address] [id number] [address] [place] [address] May, Arthritis M19.90 [facility] [address] [id number] [address] [place] [address] May, Exercise counseling Z71.82 [facility] [address] [id number] [address] [place] [address] May, Exercise counseling Z71.82 [facility] [address] [id number] [address] [place] [address] May, Labyrinthitis of left ear H8 3.02 [facility] [address] [id number] [address] [place] [address] May, Exercise counseling Z71.82 [facility] [address] [id number] [address] [place] [address] Apr, Arthritis M19.90 [facility] [address] [id number] [address] [place] [address] Apr, Exercise counseling Z71.82 [facility] [address] [id number] [address] [place] [address] Apr, Exercise counseling Z71.82 [facility] [address] [id number] [address] [place] [address] Apr, Primary osteoarthritis of le ft knee M17.12 [facility] [address] [place] [id number] [address] [place] [address] Apr, Labyrinthitis of left ear H8 3.02 [facility] [address] [place] [id number] [address] [place] [address] Mar, Arthritis M19.90 [place] [address] [address] Mar, [place] [address] [place] [id number] [place] [address] Mar, Chronic kidney disease, stag e 4 (severe) N18.4 [place] [address] [place] [id number] [place] [address] Mar, Chronic kidney disease, stag e 4 (severe) N18.4 [place] [address] [address] Mar, Labyrinthitis of left ear H8 3.02 [place] [address] [place] [id number] [address] [place] [address] Mar, Chronic kidney disease, stag e 4 (severe) N18.4 ; Knee pain, left anterior M25.562 ; Deficiency of other specified B group vitamins E53.8 and Encounter for immunization Z23 [place] [address] [place] [id number] [address] [place] [address] Mar, Arthritis M19.90 [place] [address] [place] [id number] [address] [place] [address] Feb, Labyrinthitis of left ear H8 3.02 [place] [address] [place] [id number] [place] [address] Feb, Arthritis M19.90 [place] [address] [place] [id number] [address] [place] [address] Jan, Labyrinthitis of left ear H8 3.02 [place] [address] [place] [id number] [address] [place] [address] Jan, Arthritis M19.90 [place] [address] [address] Dec, Labyrinthitis of left ear H8 3.02 [place] [address] [address] Nov, Arthritis M19.90 [place] [address] [address] Nov, Labyrinthitis of left ear H8 3.02 [place] [address] [address] Nov, BMI 40.0-44.9, adult Z68.41 ; Chronic kidney disease, stage 4 (severe) N18.4 and Acute right-sided thoracic back pain M54.6 [place] [address] [address] October, Labyrinthitis of left ear H8 3.02 and Arthritis M19.90 [place] [address] [address] Sep, BPV (benign positional verti go), bilateral H81.13 ; Dysfunction of left eustachian tube H69.82 and BMI 40.0-44.9, adult Z68.41 [place] [address] [address] Sep, Labyrinthitis of left ear H8 3.02 and Arthritis M19.90 [place] [address] [address] Sep, [place] [address] [address] Sep, [place] [address] [address] Sep, Chronic kidney disease, stag e 4 (severe) N18.4 [facility] [address] [facility] [id number] [address] [place] [address] Sep, Chronic kidney disease, stag e 4 (severe) N18.4 [facility] [address] [id number] [address] [place] [address] Aug, Labyrinthitis of left ear H8 3.02 and Arthritis M19.90 [facility] [address] [id number] [address] [place] [address] Aug, [facility] [address] [id number] [address] [place] [address] Jul, [facility] [address] [facility] [id number] [address] [place] [address] Jul, Arthritis M19.90 and Labyrin thitis of left ear H83.02 [facility] [address] [place] [id number] [address] [place] [address] Jul, [facility] [address] [facility] [id number] [address] [place] [address] Jun, [facility] [address] [facility] [id number] [address] [place] [address] Jun, Arthritis M19.90 and Labyrin thitis of left ear H83.02 [facility] [address] [facility] [id number] [address] [place] [address] Jun, Pre-op evaluation Z01.818 ; BMI 40.0-44.9, adult Z68.41 and Encounter for immunization Z23 [facility] [address] [facility] [id number] [address] [place] [address] May, Arthritis M19.90 and Labyrin thitis of left ear H83.02 [facility] [address] [facility] [id number] [address] [place] [address] Apr, Labyrinthitis of left ear H8 3.02 [facility] [address] [id number] [address] [place] [address] Apr, Arthritis M19.90 and Labyrin thitis of left ear H83.02 [facility] [address] [facility] [id number] [address] [place] [address] 10 Mar, 2017 Arthritis M19.90 and Labyrin thitis of left ear H83.02 [facility] [address] [facility] [id number] [address] [place] [address] 05 Mar, 2017 Chronic kidney disease, stag e 4 (severe) N18.4 [facility] [address] [facility] [id number] [address] [place] [address] Feb, Arthritis M19.90 and Labyrin thitis of left ear H83.02 [place] [address] [facility] [id number] [address] [place] [address] Jan, Labyrinthitis of left ear H8 3.02 and Deficiency of other specified B group vitamins E53.8 [place] [address] [facility] [id number] [address] [place] [address] Dec, Arthritis M19.90 [place] [address] [facility] [id number] [address] [place] [address] Dec, BPV (benign positional verti go), bilateral H81.13 [place] [address] [facility] [id number] [address] [place] [address] Dec, [facility] [address] [facility] [id number] [address] [place] [address] Dec, [facility] [address] [id number] [address] [place] [address] Dec, [facility] [address] [facility] [id number] [address] [place] [address] Nov, Arthritis M19.90 and Deficie ncy of other specified B group vitamins E53.8 [place] [address] [facility] [id number] [address] [place] [address] Nov, Arthritis M19.90 [facility] [address] [id number] [address] [place] [address] Nov, Hyperparathyroidism E21.3 [facility] [address] [id number] [address] [place] [address] October, [facility] [address] [facility] [id number] [address] [place] [address] October, Hyperparathyroidism E21.3 [facility] [address] [facility] [id number] [address] [place] [address] October, [facility] [address] [facility] [id number] [address] [place] [address] October, Renal insufficiency N28.9 an d Hyperparathyroidism E21.3 [facility] [address] [facility] [id number] [address] [place] [address] October, [facility] [address] [facility] [id number] [address] [place] [address] October, Renal insufficiency N28.9 an d Hyperparathyroidism E21.3 [facility] [address] [facility] [id number] [address] [place] [address] October, Arthritis M19.90 [facility] [address] [facility] [id number] [address] [place] [address] Sep, [facility] [address] [facility] [id number] [address] [place] [address] Sep, Lumbar neuritis M54.16 ; Tho racic abscess J86.9 and Deficiency of other specified B group vitamins E53.8 [facility] [address] [facility] [id number] [address] [place] [address] Sep, [facility] [address] [facility] [id number] [address] [place] [address] Aug, Arthritis M19.90 [facility] [address] [facility] [id number] [address] [place] [address] Aug, Hyperparathyroidism E21.3 [facility] [address] [facility] [id number] [address] [place] [address] Aug, Hyperparathyroidism E21.3 [facility] [address] [facility] [id number] [address] [place] [address] Aug, Arthritis M19.90 [facility] [address] [facility] [id number] [address] [place] [address] Jul, Mass of throat R22.1 [facility] [address] [facility] [id number] [address] [place] [address] Jul, [facility] [address] [facility] [id number] [address] [place] [address] Jul, Arthritis M19.90 [facility] [address] [facility] [id number] [address] [place] [address] Jun, Arthritis M19.90 [facility] [address] [facility] [id number] [address] [place] [address] Jun, [facility] [address] [facility] [id number] [address] [place] [address] Jun, Renal insufficiency N28.9 an d 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 [facility] [address] [facility] [id number] [address] [place] [address] 05 Jun, 2016 Medicare welcome exam Z00.00 ; Encounter for immunization Z23 ; Arthritis M19.90 ; Medicare annual wellness visit, initial Z00.00 ; Medicare annual wellness visit, subsequent Z00.00 and Deficiency of other specified B group vitamins E53.8 [facility] [address] [facility] [id number] [address] [place] [address] May, Renal insufficiency N28.9 an d 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 [facility] [address] [facility] [id number] [address] [place] [address] May, Renal insufficiency N28.9 [facility] [address] [facility] [id number] [address] [place] [address] 16 May, 2016 Renal insufficiency N28.9 [facility] [address] [facility] [id number] [address] [place] [address] 14 May, 2016 [facility] [address] [facility] [id number] [address] [place] [id number] 16 Apr, 2016 [facility] [address] [facility] [id number] [address] [place] [address] 16 Apr, 2016 [facility] [address] [facility] [id number] [address] [place] [address] 14 Apr, 2016 Mass of throat R22.1 [facility] [address] [facility] [id number] [address] [place] [address] 10 Apr, 2016 [facility] [address] [facility] [id number] [address] [place] [address] Apr, Mass of throat R22.1 [facility] [address] [facility] [id number] [address] [place] [address] 04 Apr, 2016 Mass of throat R22.1 [facility] [address] [facility] [id number] [address] [place] [address] Mar, [facility] [address] [facility] [id number] [address] [place] [address] Mar, [facility] [address] [facility] [id number] [address] [place] [address] Mar, [facility] [address] [place] [id number] [address] [place] [address] 24 Mar, 2016 Parathyroid abnormality E21. 5 and Encounter for immunization Z23 [facility] [address] [facility] [id number] [address] [place] [address] 17 Mar, 2016 [facility] [address] [facility] [id number] [address] [place] [address] 11 Mar, 2016 [facility] [address] [place] [id number] [address] [place] [address] Feb, Renal insufficiency N28.9 an d Hyperparathyroidism E21.3 [facility] [address] [facility] [id number] [address] [place] [address] Feb, [facility] [address] [facility] [id number] [address] [place] [address] 15 Feb, 2016 Renal insufficiency N28.9 an d Hyperparathyroidism E21.3 [place] [address] [facility] [id number] [address] [place] [address] 14 Feb, 2016 [facility] [address] [facility] [id number] [address] [place] [address] Feb, [place] [address] [address] Feb, [place] [address] [address] Jan, [place] [address] [address] Jan, Arthritis M19.90 ; Lumbago w ith sciatica, right side M54.41 and Other chronic pain G89.29 [place] [address] [address] Jan, [place] [address] [address] Dec, Arthritis M19.90 ; Lumbago w ith sciatica, right side M54.41 and Other chronic pain G89.29 [place] [id number] [place] [address] 16 Nov, 2015 Deficiency of other specifie d B group vitamins E53.8 ; Primary insomnia F51.01 ; Mood disorder F39 and Lumbago with sciatica, right side M54.41 [place] [address] [facility] [id number] [address] [place] [address] Nov, Hyperparathyroidism E21.3 [place] [address] [place] [id number] [address] [place] [address] Nov, Unspecified kidney failure N 19 and Hyperparathyroidism E21.3 [facility] [address] [address] October, Hyperparathyroidism E21.3 [facility] [address] [address] October, [facility] [address] [address] October, Hyperparathyroidism E21.3 [facility] [address] [address] October, Hyperparathyroidism E21.3 [facility] [address] [address] Sep, Hyperparathyroidism E21.3 ; Hypercholesterolemia E78.0 and Arthritis M19.90 [facility] [address] [address] Aug, [facility] [address] [address] Aug, Deficiency of other specifie d B group vitamins E53.8 [facility] [address] [address] Aug, [facility] [address] [address] Jul, Urinary frequency R35.0 [facility] [address] [address] Jul, Urinary frequency R35.0 [facility] [address] [address] Jul, [facility] [address] [id number] Jul, [facility] [address] [id number] Jun, Pain in left knee M25.562 [facility] [address] [id number] [address] [place] [id number] Jun, [facility] [address] [id number] [address] [place] [id number] May, Swelling of left knee joint M25.462 [facility] [address] [id number] [address] [place] [phone] May, [facility] [address] [id number] [address] [place] [phone] May, [facility] [address] [id number] [address] [place] [phone] May, [facility] [address] [facility] [id number] [address] [place] [phone] Apr, Renal insufficiency N28.9 an d Chronic kidney disease, stage 4 (severe) N18.4 [facility] [address] [facility] [id number] [address] [place] [id number] Apr, Unspecified kidney failure N 19 [facility] [address] [facility] [id number] [address] [place] [phone] Apr, Unspecified kidney failure N 19 [facility] [address] [facility] [id number] [address] [place] [phone] Apr, [facility] [address] [facility] [id number] [address] [place] [id number] Apr, Hyperparathyroidism, unspeci fied 252.00 [facility] [address] [facility] [id number] [address] [place] [phone] Apr, [facility] [address] [facility] [id number] [address] [place] [phone] Mar, [facility] [address] [facility] [id number] [address] [place] [id number] Mar, [facility] [address] [facility] [id number] [address] [place] [id number] Mar, Hyperparathyroidism, unspeci fied 252.00 [facility] [address] [id number] [address] [place] [id number] Feb, [facility] [address] [facility] [id number] [address] [place] [phone] Feb, Otalgia 388.70 [facility] [address] [facility] [id number] [address] [place] [phone] Feb, [facility] [address] [id number] [address] [place] [phone] Feb, [facility] [address] [facility] [id number] [address] [place] [id number] Jan, [facility] [address] [facility] [id number] [address] [place] [id number] Jan, Hyperparathyroidism, unspeci fied 252.00 [facility] [address] [facility] [id number] [address] [place] [id number] Jan, [facility] [address] [facility] [id number] [address] [place] [id number] Jan, Other B-complex deficiencies 266.2 and Hyperparathyroidism, unspecified 252.00 [facility] [address] [facility] [id number] [address] [place] [phone] Jan, [facility] [address] [facility] [id number] [address] [place] [id number] Jan, [facility] [address] [facility] [id number] [address] [place] [phone] Jan, [facility] [address] [facility] [id number] [address] [place] [id number] Dec, [facility] [address] [facility] [id number] [address] [place] [address] Dec, [facility] [address] [facility] [id number] [address] [place] [id number] Dec, [facility] [address] [id number] [address] [place] [id number] 15 Nov, 2014 Routine check-up V70.0 and P re-op exam V72.84 [facility] [address] [id number] [address] [place] [address] 12 Nov, 2014 [facility] [address] [id number] [address] [place] [id number] Nov, [facility] [address] [id number] [address] [place] [address] October, [facility] [address] [id number] [address] [place] [address] October, Other B-complex deficiencies 266.2 [facility] [address] [id number] [address] [place] [phone] October, [facility] [address] [id number] [address] [place] [id number] 14 Sep, 2014 [facility] [address] [id number] [address] [place] [phone] Sep, [facility] [address] [id number] [address] [place] [address] 20 Aug, 2014 [facility] [address] [id number] [address] [place] [id number] 20 Aug, 2014 [facility] [address] [id number] [address] [place] [id number] 17 Aug, 2014 [facility] [address] [id number] [address] [place] [id number] 17 Aug, 2014 [facility] [address] [id number] [address] [place] [id number] Aug, [facility] [address] [id number] [address] [place] [id number] Aug, [facility] [address] [id number] [address] [place] [id number] 18 Jul, 2014 [facility] [address] [id number] [address] [place] [address], [place] [address] Jul, 2014 [facility] [address] [id number] [address] [place] [address], [place] [address] Jul, 2014 [facility] [address] [id number] [address] [place] [address], [place] [address] Jul, 2014 [facility] [address] [id number] [address] [place] [address], [place] [address] Jul, 2014 [facility] [address] [id number] [address] [place] [address], [place] [address] Jul, 2014 [facility] [address] [id number] [address] [place] [address], [place] [address] Jul, 2014 [facility] [address] [id number] [address] [place] [address], [place] [address] Jul, 2014 [facility] [address] [id number] [address] [place] [address], [place] [address] Jul, 2014 [facility] [address] [id number] [address] [place] [address], [place] [address] Jul, 2014 [facility] [address] [id number] [address] [place] [address], [place] [address] Jul, 2014 [facility] [address] [id number] [address] [place] [address], [place] [address] Jul, 2014 [facility] [address] [id number] [address] [place] [address], [place] [address] Jul, 2014 [facility] [address] [id number] [address] [place] [address], [place] [address] Jul, 2014 [facility] [address] [id number] [address] [place] [address], [place] [address] Jun, [facility] [address] [id number] [address] [place] [address], [place] [address] Jun, [facility] [address] [id number] [address] [place] [address], [place] [address] Jun, [facility] [address] [id number] [address] [place] [address], [place] [address] Jun, [facility] [address] [id number] [address] [place] [address], [place] [address] Jun, [facility] [address] [id number] [address] [place] [address], [place] [address] Jun, [facility] [address] [id number] [address] [place] [address], [place] [address] Jun, [facility] [address] [id number] [address] [place] [address], [place] [address] Jun, [facility] [address] [id number] [address] [place] [address], [place] [address] Jun, [facility] [address] [id number] [address] [place] [address], [place] [address] Jun, [facility] [address] [id number] [address] [place] [address], [place] [address] Jun, [facility] [address] [id number] [address] [place] [address], [place] [address] Jun, [facility] [address] [id number] [address] [place] [address], [place] [address] Jun, [facility] [address] [id number] [address] [place] [address], [place] [address] Jun, [facility] [address] [id number] [address] [place] [address], [place] [address] May, [facility] [address] [id number] [address] [place] [address], [place] [address] May, [facility] [address] [id number] [address] [place] [address], [place] [address] May, [facility] [address] [id number] [address] [address] May, [facility] [address] [id number] [address] [place] [address], [place] [address] Apr, [facility] [address] [id number] [address] [place] [address], [place] [address] Apr, [facility] [address] [id number] [address] [place] [address], [place] [address] Apr, [facility] [address] [id number] [address] [place] [id number] Apr, [facility] [address] [id number] [address] [place] [address], [place] [address] Apr, [facility] [address] [id number] [address] [place] [id number] Apr, [facility] [address] [id number] [address] [place] [address], [place] [address] Mar, [facility] [address] [id number] [address] [place] [address], [place] [address] Mar, [facility] [address] [id number] [address] [place] [address], [place] [address] Mar, [facility] [address] [id number] [address] [place] [address], [place] [address] Mar, [facility] [address] [id number] [address] [place] [address] 15 Mar, 2014 [facility] [address] [id number] [address] [place] [address] 15 Mar, 2014 [facility] [address] [id number] [address] [place] [address], [place] [address] Mar, [facility] [address] [id number] [address] [place] [address], [place] [address] Mar, [facility] [address] [id number] [address] [place] [address] Mar, [facility] [address] [id number] [address] [place] [address], [place] [address] 07 Mar, 2014 [facility] [address] [id number] [address] [place] [address], [place] [address] 07 Mar, 2014 [facility] [address] [id number] [address] [place] [address], [place] [address] 07 Mar, 2014 [facility] [address] [id number] [address] [place] [address], [place] [address] 06 Mar, 2014 [facility] [address] [id number] [address] [place] [address], [place] [address] 26 Feb, 2013 [facility] [address] [id number] [address] [place] [address], [place] [address] 26 Feb, 2014 [facility] [address] [id number] [address] [place] [address], [place] [address] 23 Feb, 2013 [facility] [address] [id number] [address] [place] [address], [place] [address] 23 Feb, 2013 [facility] [address] [id number] [address] [place] [address], [place] [address] 19 Feb, 2014 [facility] [address] [id number] [address] [place] [address], [place] [address] 19 Feb, 2014 [facility] [address] [id number] [address] [place] [address], [place] [address] 13 Feb, 2014 [facility] [address] [id number] [address] [place] [address], [place] [address] 13 Feb, 2014 [facility] [address] [id number] [address] [place] [address], [place] [address] 12 Feb, 2014 [facility] [address] [id number] [address] [place] [address], [place] [address] 12 Feb, 2014 [facility] [address] [id number] [address] [place] [address], [place] [address] 15 Jan, 2014 [facility] [address] [id number] [address] [place] [address], [place] [address] Jan, [facility] [address] [id number] [facility] [place] [address] Dec, [facility] [address] [id number] [address] [place] [address], [place] [address] Dec, [facility] [address] [id number] [address] [place] [address], [place] [address] Dec, [facility] [address] [id number] [address] [place] [address], [place] [address] Dec, [facility] [address] [id number] [address] [place] [address], [place] [address] Dec, [facility] [address] [id number] [address] [place] [address], [place] [address] Dec, [facility] [address] [id number] [address] [place] [address], [place] [address] Nov, [facility] [address] [id number] [address] [place] [address], [place] [address] Nov, [facility] [address] [id number] [address] [place] [address], [place] [address] Nov, [facility] [address] [id number] [address] [place] [address], [place] [address] Nov, [facility] [address] [id number] [address] [place] [address], [place] [address] October, [facility] [address] [id number] [address] [place] [address], [place] [address] October, [facility] [address] [id number] [address] [place] [address], [place] [address] October, [facility] [address] [id number] [address] [place] [address], [place] [address] October, [facility] [address] [id number] [address] [place] [address], [place] [address] October, [facility] [address] [id number] [address] [place] [address], [place] [address] October, [facility] [address] [id number] [address] [place] [address], [place] [address] October, [facility] [address] [id number] [address] [place] [address], [place] [address] October, [facility] [address] [id number] [address] [place] [address], [place] [address] October, [facility] [address] [id number] [address] [place] [address], [place] [address] October, [facility] [address] [id number] [address] [place] [address], [place] [address] October, [facility] [address] [id number] [address] [place] [address], [place] [address] October, [facility] [address] [id number] [address] [place] [address], [place] [address] October, [facility] [address] [id number] [address] [place] [address], [place] [address] October, [facility] [address] [id number] [address] [place] [address], [place] [address] October, [facility] [address] [id number] [address] [place] [address], [place] [address] October, [facility] [address] [id number] [address] [place] [address], [place] [address] Sep, [facility] [address] [id number] [address] [place] [address], [place] [address] Sep, [facility] [address] [id number] [address] [place] [address], [place] [address] Sep, [facility] [address] [id number] [address] [place] [address], [place] [address] Sep, [facility] [address] [id number] [address] [place] [address], [place] [address] Sep, [facility] [address] [id number] [address] [place] [address], [place] [address] Sep, [facility] [address] [id number] [address] [place] [address], [place] [address] Aug, [facility] [address] [id number] [address] [place] [address], [place] [address] Aug, [facility] [address] [id number] [address] [place] [address], [place] [address] Aug, [facility] [address] [id number] [address] [place] [address], [place] [address] Aug, [facility] [address] [id number] [address] [place] [address], [place] [address] Aug, [facility] [address] [id number] [address] [place] [address], [place] [address] Aug, [facility] [address] [id number] [address] [place] [address], [place] [address] Jul, [facility] [address] [id number] [address] [place] [address], [place] [address] Jul, [facility] [address] [id number] [address] [place] [address], [place] [address] Jul, [facility] [address] [id number] [address] [place] [address], [place] [address] Jul, [facility] [address] [id number] [address] [place] [address], [place] [address] Jun, [facility] [address] [id number] [address] [place] [address], [place] [address] Jun, [facility] [address] [id number] [address] [place] [address], [place] [address] May, [facility] [address] [id number] [address] [place] [address], [place] [address] May, [facility] [address] [id number] [address] [address] 10 May, 2013 [facility] [address] [id number] [address] [place] [address], [place] [address] May, [facility] [address] [id number] [address] [place] [address] May, [facility] [address] [id number] [address] [place] [address] Apr, [facility] [address] [id number] [address] [place] [address] Apr, [facility] [address] [id number] [address] [place] [address], [place] [address] Apr, [facility] [address] [id number] [address] [place] [address] Apr, [facility] [address] [id number] [address] [place] [address] Apr, [facility] [address] [id number] [address] [place] [address] Apr, [facility] [address] [id number] [address] [place] [address] 15 Mar, 2013 [facility] [address] [id number] [address] [place] [address] 15 Mar, 2013 [facility] [address] [id number] [address] [place] [address] 14 Mar, 2013 [facility] [address] [id number] [address] [place] [address] 14 Mar, 2013 [facility] [address] [id number] [address] [place] [address] 11 Mar, 2013 [facility] [address] [id number] [address] [place] [address] 11 Mar, 2013 [facility] [address] [id number] [address] [place] [address] 23 Feb, 2013 [facility] [address] [id number] [address] [place] [address], [place] [address] Feb, [facility] [address] [id number] [address] [place] [address], [place] [address] Feb, [facility] [address] [id number] [address] [place] [address], [place] [address] Jan, [facility] [address] [id number] [address] [place] [address], [place] [address] Jan, [facility] [address] [id number] [address] [place] [address], [place] [address] Jan, [facility] [address] [id number] [address] [place] [address], [place] [address] Jan, [facility] [address] [id number] [address] [place] [address], [place] [address] Jan, [facility] [address] [id number] [address] [place] [address], [place] [address] Jan, [facility] [address] [id number] [address] [place] [address], [place] [address] Dec, [facility] [address] [id number] [address] [place] [address], [place] [address] Dec, [facility] [address] [id number] [address] [place] [address], [place] [address] Dec, [facility] [address] [id number] [address] [place] [address], [place] [address] Dec, [facility] [address] [id number] [address] [place] [address], [place] [address] Dec, [facility] [address] [id number] [address] [place] [address], [place] [address] Dec, [facility] [address] [id number] [address] [place] [address], [place] [address] Nov, [facility] [address] [id number] [address] [place] [address], [place] [address] Nov, [facility] [address] [id number] [address] [place] [address], [place] [address] 18 Nov, 2012 [facility] [address] [id number] [address] [place] [address], [place] [address] Nov, [facility] [address] [id number] [address] [place] [address], [place] [address] Nov, [facility] [address] [id number] [address] [place] [address], [place] [address] Nov, [facility] [address] [id number] [address] [place] [address], [place] [address] October, [facility] [address] [id number] [address] [place] [address], [place] [address] October, [facility] [address] [id number] [address] [place] [address], [place] [address] October, [facility] [address] [id number] [address] [place] [address], [place] [address] October, [facility] [address] [id number] [address] [place] [address], [place] [address] October, [facility] [address] [id number] [address] [place] [address], [place] [address] Sep, [facility] [address] [id number] [address] [place] [address], [place] [address] Sep, [facility] [address] [id number] [address] [place] [address], [place] [address] Sep, [facility] [address] [id number] [address] [place] [address], [place] [address] Sep, [facility] [address] [id number] [address] [place] [address], [place] [address] Sep, [facility] [address] [id number] [address] [place] [address], [place] [address] Aug, [facility] [address] [id number] [address] [place] [address], [place] [address] 07 Aug, 2012 [facility] [address] [id number] [address] [place] [address], [place] [address] 04 Aug, 2012 [facility] [address] [id number] [address] [place] [address], [place] [address] 21 Jul, 2012 [facility] [address] [id number] [address] [place] [address], [place] [address] 20 Jul, 2012 [facility] [address] [id number] [address] [place] [address], [place] [address] 11 Jul, 2012 [facility] [address] [id number] [address] [place] [address], [place] [address] 08 Jul, 2012 [facility] [address] [id number] [address] [place] [address], [place] [address] 06 Jul, 2012 [facility] [address] [id number] [address] [place] [address], [place] [address] 05 Jul, 2012 [facility] [address] [id number] [address] [place] [address], [place] [address] 15 Jun, 2012 [facility] [address] [id number] [address] [place] [address], [place] [address] 16 Apr, 2012 [facility] [address] [id number] [address] [place] [address], [place] [address] 16 Apr, 2012 [facility] [address] [id number] [address] [place] [address], [place] [address] Apr, [facility] [address] [id number] [address] [place] [address], [place] [address] Apr, [facility] [address] [id number] [address] [place] [address], [place] [address] Mar, [facility] [address] [id number] [address] [place] [address], [place] [address] Mar, [facility] [address] [id number] [address] [place] [address], [place] [address] Mar, [facility] [address] [id number] [address] [place] [address], [place] [address] Mar, [facility] [address] [id number] [address] [place] [address], [place] [address] Mar, [facility] [address] [id number] [address] [place] [address], [place] [address] Feb, [facility] [address] [id number] [address] [place] [address], [place] [address] Jan, [facility] [address] [id number] [address] [place] [address], [place] [address] Jan, [facility] [address] [id number] [address] [place] [address], [place] [address] Jan, [facility] [address] [id number] [address] [place] [address], [place] [address] Dec, [facility] [address] [id number] [address] [place] [address], [place] [address] Nov, [facility] [address] [id number] [address] [place] [address], [place] [address] Nov, [facility] [address] [id number] [address] [place] [address], [place] [address] Nov, [facility] [address] [id number] [address] [place] [address], [place] [address] Nov, [facility] [address] [id number] [address] [place] [address], [place] [address] Nov, [facility] [address] [id number] [address] [place] [address], [place] [address] October, [facility] [address] [id number] [address] [place] [address], [place] [address] October, [facility] [address] [id number] [address] [place] [address], [place] [address] October, [facility] [address] [id number] [address] [address] October, [facility] [address] [facility] [id number] [address] [address] October, IMMUNIZATIONS No Known Immunizations SOCIAL HISTORY [...]
--- OUTSIDE RECORDS SUMMARY | 2020-01-25 07:53 | XMS REPORT ---
Author Author Velma CORDERO Organization [facility] Address [address] [place] [address] Care Team Providers Care Bone Char Kiln Operator Name Role Phone STEPHAN CORDERO Unavailable PROBLEMS Type Condition ICD9-CM Code NDX77-OK Code Onset Dates Condition S tatus SNOMED Code Problem Primary insomnia F51.01 Active 397 2004 Problem Hypercholesteremia E78.0 Active 1 5978764 Problem Corns L84 Active 439794318 Problem Arthritis M19.90 Active 8739132 Problem Hyperparathyroidism E21.3 Active 54572377 Problem 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 Active 77410350 Problem 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 Active 45975621 Problem BPV (benign positional vertigo), bilateral H81.13 Active 932974975 Problem Unspecified kidney failure N19 Act chip 02712296 Problem Myalgia M79.1 Active 93633866 Problem 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 Active 031196843 Problem Mood disorder F39 Active 674798 05 Problem Chronic kidney disease, stage 4 (severe) N18.4 Active 170922999 Problem Primary osteoarthritis of left knee M17.12 Active [id number] Problem Irritable bowel syndrome with both constipation and diarrh ea K58.2 Active 37483390 Problem Body mass index (BMI) of 40.0-44.9 in adult Z68.41 Active 668799983 ALLERGIES No Information ENCOUNTERS Encounter Location Date Diagnosis [facility] [address] [facility] [id number] [address] [place] [phone] Nov, Inflammatory spondylopathy o f sacral region M46.98 [facility] [address] [facility] [id number] [address] [place] [phone] Nov, [facility] [address] [facility] [id number] [address] [place] [phone] 14 Nov, 2018 Labyrinthitis of left ear H8 3.02 [facility] [address] [id number] [address] [place] [phone] Nov, Arthritis M19.90 [facility] [address] [id number] [address] [place] [id number] Sep, Arthritis M19.90 [facility] [address] [facility] [id number] [address] [place] [phone] Sep, Renal insufficiency N28.9 an d Unspecified kidney failure N19 [facility] [address] [id number] [address] [place] [phone] Sep, Renal insufficiency N28.9 an d Unspecified kidney failure N19 [facility] [address] [id number] [address] [place] [phone] Sep, Arthritis M19.90 [facility] [address] [id number] [address] [place] [phone] Aug, Exercise counseling Z71.82 [facility] [address] [id number] [address] [place] [phone] Aug, [facility] [address] [facility] [id number] [address] [place] [phone] Jul, Labyrinthitis of left ear H8 3.02 [facility] [address] [facility] [id number] [address] [place] [phone] Jul, Labyrinthitis of left ear H8 3.02 [facility] [address] [id number] [address] [place] [phone] Jul, Exercise counseling Z71.82 [facility] [address] [facility] [id number] [address] [place] [phone] 18 Jul, 2018 [facility] [address] [facility] [id number] [address] [place] [id number] 14 Jul, 2018 Arthritis M19.90 [facility] [address] [facility] [id number] [address] [place] [phone] 13 Jul, 2018 Encounter for Medicare annua l wellness exam Z00.00 ; Chronic kidney disease, stage 4 (severe) N18.4 ; Body mass index (BMI) of 40.0-44.9 in adult Z68.41 ; Hyperparathyroidism E21.3 and BMI 40.0-44.9, adult Z68.41 [facility] [address] [place] [id number] [address] [place] [id number] 13 Jul, 2018 Encounter for Medicare annua l wellness exam Z00.00 ; Chronic kidney disease, stage 4 (severe) N18.4 ; Hyperparathyroidism E21.3 ; Body mass index (BMI) of 40.0-44.9 in adult Z68.41 and Encounter for immunization Z23 [place] [id number] [place] [phone] 11 Jul, 2018 Tail bone pain M53.3 [place] [address] [address] 29 Jun, 2018 Exercise counseling Z71.82 [place] [address] [address] Jun, Labyrinthitis of left ear H8 3.02 [place] [address] [place] [id number] [address] [place] [phone] Jun, Tail bone pain M53.3 ; Irrit able bowel syndrome with both constipation and diarrhea K58.2 and Dysfunction of left eustachian tube H69.82 [place] [address] [place] [id number] [address] [place] [phone] Jun, Exercise counseling Z71.82 [place] [address] [facility] [id number] [address] [place] [phone] Jun, Arthritis M19.90 [place] [address] [place] [id number] [place] [phone] 16 Jun, 2018 Irritable bowel syndrome wit h both constipation and diarrhea K58.2 ; Tail bone pain M53.3 and Dysfunction of left eustachian tube H69.82 [facility] [address] [id number] [address] [place] [phone] Jun, Exercise counseling Z71.82 [facility] [address] [id number] [address] [place] [phone] Jun, Exercise counseling Z71.82 [facility] [address] [id number] [address] [place] [phone] Jun, Labyrinthitis of left ear H8 3.02 [facility] [address] [id number] [address] [place] [phone] May, Exercise counseling Z71.82 [facility] [address] [id number] [address] [place] [id number] May, Arthritis M19.90 [facility] [address] [id number] [address] [place] [phone] May, Exercise counseling Z71.82 [facility] [address] [id number] [address] [place] [phone] May, Exercise counseling Z71.82 [facility] [address] [id number] [address] [place] [phone] May, Labyrinthitis of left ear H8 3.02 [facility] [address] [id number] [address] [place] [phone] May, Exercise counseling Z71.82 [facility] [address] [id number] [address] [place] [id number] Apr, Arthritis M19.90 [facility] [address] [id number] [address] [place] [phone] Apr, Exercise counseling Z71.82 [facility] [address] [id number] [address] [place] [phone] Apr, Exercise counseling Z71.82 [facility] [address] [id number] [address] [place] [phone] Apr, Primary osteoarthritis of le ft knee M17.12 [facility] [address] [place] [id number] [address] [place] [phone] Apr, Labyrinthitis of left ear H8 3.02 [facility] [address] [place] [id number] [address] [place] [phone] Mar, Arthritis M19.90 [place] [address] [phone] Mar, [place] [address] [place] [id number] [place] [phone] Mar, Chronic kidney disease, stag e 4 (severe) N18.4 [place] [address] [place] [id number] [place] [phone] Mar, Chronic kidney disease, stag e 4 (severe) N18.4 [place] [address] [address] Mar, Labyrinthitis of left ear H8 3.02 [place] [address] [place] [id number] [address] [place] [phone] Mar, Chronic kidney disease, stag e 4 (severe) N18.4 ; Knee pain, left anterior M25.562 ; Deficiency of other specified B group vitamins E53.8 and Encounter for immunization Z23 [place] [address] [place] [id number] [address] [place] [phone] Mar, Arthritis M19.90 [place] [address] [place] [id number] [address] [place] [phone] Feb, Labyrinthitis of left ear H8 3.02 [place] [address] [place] [id number] [place] [phone] Feb, Arthritis M19.90 [place] [address] [place] [id number] [address] [place] [phone] Jan, Labyrinthitis of left ear H8 3.02 [place] [address] [place] [id number] [address] [place] [phone] Jan, Arthritis M19.90 [place] [address] [address] Dec, Labyrinthitis of left ear H8 3.02 [place] [address] [address] Nov, Arthritis M19.90 [place] [address] [address] Nov, Labyrinthitis of left ear H8 3.02 [place] [address] [address] Nov, BMI 40.0-44.9, adult Z68.41 ; Chronic kidney disease, stage 4 (severe) N18.4 and Acute right-sided thoracic back pain M54.6 [place] [address] [address] October, Labyrinthitis of left ear H8 3.02 and Arthritis M19.90 [place] [address] [address] Sep, BPV (benign positional verti go), bilateral H81.13 ; Dysfunction of left eustachian tube H69.82 and BMI 40.0-44.9, adult Z68.41 [place] [address] [address] Sep, Labyrinthitis of left ear H8 3.02 and Arthritis M19.90 [place] [address] [address] Sep, [place] [address] [address] Sep, [place] [address] [address] Sep, Chronic kidney disease, stag e 4 (severe) N18.4 [facility] [address] [facility] [id number] [address] [place] [id number] Sep, Chronic kidney disease, stag e 4 (severe) N18.4 [facility] [address] [id number] [address] [place] [phone] Aug, Labyrinthitis of left ear H8 3.02 and Arthritis M19.90 [facility] [address] [id number] [address] [place] [phone] Aug, [facility] [address] [id number] [address] [place] [phone] Jul, [facility] [address] [facility] [id number] [address] [place] [id number] Jul, Arthritis M19.90 and Labyrin thitis of left ear H83.02 [facility] [address] [place] [id number] [address] [place] [phone] Jul, [facility] [address] [facility] [id number] [address] [place] [phone] Jun, [facility] [address] [facility] [id number] [address] [place] [phone] Jun, Arthritis M19.90 and Labyrin thitis of left ear H83.02 [facility] [address] [facility] [id number] [address] [place] [phone] Jun, Pre-op evaluation Z01.818 ; BMI 40.0-44.9, adult Z68.41 and Encounter for immunization Z23 [facility] [address] [facility] [id number] [address] [place] [phone] May, Arthritis M19.90 and Labyrin thitis of left ear H83.02 [facility] [address] [facility] [id number] [address] [place] [phone] Apr, Labyrinthitis of left ear H8 3.02 [facility] [address] [id number] [address] [place] [phone] Apr, Arthritis M19.90 and Labyrin thitis of left ear H83.02 [facility] [address] [facility] [id number] [address] [place] [phone] 10 Mar, 2017 Arthritis M19.90 and Labyrin thitis of left ear H83.02 [facility] [address] [facility] [id number] [address] [place] [phone] 05 Mar, 2017 Chronic kidney disease, stag e 4 (severe) N18.4 [facility] [address] [facility] [id number] [address] [place] [phone] Feb, Arthritis M19.90 and Labyrin thitis of left ear H83.02 [place] [address] [facility] [id number] [address] [place] [phone] Jan, Labyrinthitis of left ear H8 3.02 and Deficiency of other specified B group vitamins E53.8 [place] [address] [facility] [id number] [address] [place] [phone] Dec, Arthritis M19.90 [place] [address] [facility] [id number] [address] [place] [phone] Dec, BPV (benign positional verti go), bilateral H81.13 [place] [address] [facility] [id number] [address] [place] [phone] Dec, [facility] [address] [facility] [id number] [address] [place] [phone] Dec, [facility] [address] [id number] [address] [place] [phone] Dec, [facility] [address] [facility] [id number] [address] [place] [phone] Nov, Arthritis M19.90 and Deficie ncy of other specified B group vitamins E53.8 [place] [address] [facility] [id number] [address] [place] [phone] Nov, Arthritis M19.90 [facility] [address] [id number] [address] [place] [phone] Nov, Hyperparathyroidism E21.3 [facility] [address] [id number] [address] [place] [id number] October, [facility] [address] [facility] [id number] [address] [place] [phone] October, Hyperparathyroidism E21.3 [facility] [address] [facility] [id number] [address] [place] [phone] October, [facility] [address] [facility] [id number] [address] [place] [phone] October, Renal insufficiency N28.9 an d Hyperparathyroidism E21.3 [facility] [address] [facility] [id number] [address] [place] [phone] October, [facility] [address] [facility] [id number] [address] [place] [phone] October, Renal insufficiency N28.9 an d Hyperparathyroidism E21.3 [facility] [address] [facility] [id number] [address] [place] [phone] October, Arthritis M19.90 [facility] [address] [facility] [id number] [address] [place] [phone] Sep, [facility] [address] [facility] [id number] [address] [place] [phone] Sep, Lumbar neuritis M54.16 ; Tho racic abscess J86.9 and Deficiency of other specified B group vitamins E53.8 [facility] [address] [facility] [id number] [address] [place] [phone] Sep, [facility] [address] [facility] [id number] [address] [place] [phone] Aug, Arthritis M19.90 [facility] [address] [facility] [id number] [address] [place] [phone] Aug, Hyperparathyroidism E21.3 [facility] [address] [facility] [id number] [address] [place] [phone] Aug, Hyperparathyroidism E21.3 [facility] [address] [facility] [id number] [address] [place] [id number] Aug, Arthritis M19.90 [facility] [address] [facility] [id number] [address] [place] [phone] Jul, Mass of throat R22.1 [facility] [address] [facility] [id number] [address] [place] [phone] Jul, [facility] [address] [facility] [id number] [address] [place] [phone] Jul, Arthritis M19.90 [facility] [address] [facility] [id number] [address] [place] [phone] Jun, Arthritis M19.90 [facility] [address] [facility] [id number] [address] [place] [phone] Jun, [facility] [address] [facility] [id number] [address] [place] [phone] Jun, Renal insufficiency N28.9 an d 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 [facility] [address] [facility] [id number] [address] [place] [phone] 05 Jun, 2016 Medicare welcome exam Z00.00 ; Encounter for immunization Z23 ; Arthritis M19.90 ; Medicare annual wellness visit, initial Z00.00 ; Medicare annual wellness visit, subsequent Z00.00 and Deficiency of other specified B group vitamins E53.8 [facility] [address] [facility] [id number] [address] [place] [phone] May, Renal insufficiency N28.9 an d 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 [facility] [address] [facility] [id number] [address] [place] [phone] May, Renal insufficiency N28.9 [facility] [address] [facility] [id number] [address] [place] [phone] 16 May, 2016 Renal insufficiency N28.9 [facility] [address] [facility] [id number] [address] [place] [id number] 14 May, 2016 [facility] [address] [facility] [id number] [address] [place] [phone] 16 Apr, 2016 [facility] [address] [facility] [id number] [address] [place] [phone] 16 Apr, 2016 [facility] [address] [facility] [id number] [address] [place] [phone] 14 Apr, 2016 Mass of throat R22.1 [facility] [address] [facility] [id number] [address] [place] [phone] 10 Apr, 2016 [facility] [address] [facility] [id number] [address] [place] [phone] Apr, Mass of throat R22.1 [facility] [address] [facility] [id number] [address] [place] [phone] 04 Apr, 2016 Mass of throat R22.1 [facility] [address] [facility] [id number] [address] [place] [phone] Mar, [facility] [address] [facility] [id number] [address] [place] [phone] Mar, [facility] [address] [facility] [id number] [address] [place] [phone] Mar, [facility] [address] [place] [id number] [address] [place] [phone] 24 Mar, 2016 Parathyroid abnormality E21. 5 and Encounter for immunization Z23 [facility] [address] [facility] [id number] [address] [place] [phone] 17 Mar, 2016 [facility] [address] [facility] [id number] [address] [place] [phone] 11 Mar, 2016 [facility] [address] [place] [id number] [address] [place] [phone] Feb, Renal insufficiency N28.9 an d Hyperparathyroidism E21.3 [facility] [address] [facility] [id number] [address] [place] [phone] Feb, [facility] [address] [facility] [id number] [address] [place] [id number] 15 Feb, 2016 Renal insufficiency N28.9 an d Hyperparathyroidism E21.3 [place] [address] [facility] [id number] [address] [place] [phone] 14 Feb, 2016 [facility] [address] [facility] [id number] [address] [place] [phone] Feb, [place] [address] [id number] Feb, [place] [address] [address] Jan, [place] [address] [id number] Jan, Arthritis M19.90 ; Lumbago w ith sciatica, right side M54.41 and Other chronic pain G89.29 [place] [address] [address] Jan, [place] [address] [address] Dec, Arthritis M19.90 ; Lumbago w ith sciatica, right side M54.41 and Other chronic pain G89.29 [place] [id number] [place] [id number] 16 Nov, 2015 Deficiency of other specifie d B group vitamins E53.8 ; Primary insomnia F51.01 ; Mood disorder F39 and Lumbago with sciatica, right side M54.41 [place] [address] [facility] [id number] [address] [place] [phone] Nov, Hyperparathyroidism E21.3 [place] [address] [place] [id number] [address] [place] [phone] Nov, Unspecified kidney failure N 19 and Hyperparathyroidism E21.3 [facility] [address] [address] October, Hyperparathyroidism E21.3 [facility] [address] [id number] October, [facility] [address] [id number] October, Hyperparathyroidism E21.3 [facility] [address] [id number] October, Hyperparathyroidism E21.3 [facility] [address] [id number] Sep, Hyperparathyroidism E21.3 ; Hypercholesterolemia E78.0 and Arthritis M19.90 [facility] [address] [phone] Aug, [facility] [address] [address] Aug, Deficiency of other specifie d B group vitamins E53.8 [facility] [address] [address] Aug, [facility] [address] [address] Jul, Urinary frequency R35.0 [facility] [address] [id number] Jul, Urinary frequency R35.0 [facility] [address] [address] Jul, [facility] [address] [id number] Jul, [facility] [address] [id number] Jun, Pain in left knee M25.562 [facility] [address] [id number] [address] [place] [id number] Jun, [facility] [address] [id number] [address] [place] [phone] May, Swelling of left knee joint M25.462 [facility] [address] [id number] [address] [place] [id number] May, [facility] [address] [id number] [address] [place] [phone] May, [facility] [address] [id number] [address] [place] [id number] May, [facility] [address] [facility] [id number] [address] [place] [id number] Apr, Renal insufficiency N28.9 an d Chronic kidney disease, stage 4 (severe) N18.4 [facility] [address] [facility] [id number] [address] [place] [id number] Apr, Unspecified kidney failure N 19 [facility] [address] [facility] [id number] [address] [place] [phone] Apr, Unspecified kidney failure N 19 [facility] [address] [facility] [id number] [address] [place] [phone] Apr, [facility] [address] [facility] [id number] [address] [place] [id number] Apr, Hyperparathyroidism, unspeci fied 252.00 [facility] [address] [facility] [id number] [address] [place] [phone] Apr, [facility] [address] [facility] [id number] [address] [place] [phone] Mar, [facility] [address] [facility] [id number] [address] [place] [phone] Mar, [facility] [address] [facility] [id number] [address] [place] [id number] Mar, Hyperparathyroidism, unspeci fied 252.00 [facility] [address] [id number] [address] [place] [id number] Feb, [facility] [address] [facility] [id number] [address] [place] [id number] Feb, Otalgia 388.70 [facility] [address] [facility] [id number] [address] [place] [id number] Feb, [facility] [address] [id number] [address] [place] [id number] Feb, [facility] [address] [facility] [id number] [address] [place] [id number] Jan, [facility] [address] [facility] [id number] [address] [place] [id number] Jan, Hyperparathyroidism, unspeci fied 252.00 [facility] [address] [facility] [id number] [address] [place] [id number] Jan, [facility] [address] [facility] [id number] [address] [place] [id number] Jan, Other B-complex deficiencies 266.2 and Hyperparathyroidism, unspecified 252.00 [facility] [address] [facility] [id number] [address] [place] [id number] Jan, [facility] [address] [facility] [id number] [address] [place] [id number] Jan, [facility] [address] [facility] [id number] [address] [place] [id number] Jan, [facility] [address] [facility] [id number] [address] [place] [id number] Dec, [facility] [address] [facility] [id number] [address] [place] [id number] Dec, [facility] [address] [facility] [id number] [address] [place] [id number] Dec, [facility] [address] [id number] [address] [place] [id number] 15 Nov, 2014 Routine check-up V70.0 and P re-op exam V72.84 [facility] [place] [address] [id number] [address] [place] [id number] 12 Nov, 2014 [facility] [place] [address] [id number] [address] [place] [id number] Nov, [facility] [place] [address] [id number] [address] [place] [phone] October, [facility] [place] [address] [id number] [address] [place] [id number] October, Other B-complex deficiencies 266.2 [facility] [place] [address] [id number] [address] [place] [phone] October, [facility] [place] [address] [id number] [address] [place] [id number] 14 Sep, 2014 [facility] [place] [address] [id number] [address] [place] [id number] Sep, [facility] [place] [address] [id number] [address] [place] [id number] 20 Aug, 2014 [facility] [place] [address] [id number] [address] [place] [id number] 20 Aug, 2014 [facility] [place] [address] [id number] [address] [place] [phone] 17 Aug, 2014 [facility] [place] [address] [id number] [address] [place] [id number] 17 Aug, 2014 [facility] [place] [address] [id number] [address] [place] [id number] Aug, [facility] [place] [address] [id number] [address] [place] [phone] Aug, [facility] [place] [address] [id number] [address] [place] [id number] 18 Jul, 2014 [facility] [address] [id number] [address] [place] [address], [place] [id number] Jul, 2014 [facility] [address] [id number] [address] [place] [address], [place] [id number] Jul, 2014 [facility] [address] [id number] [address] [place] [address], [place] [id number] Jul, 2014 [facility] [address] [id number] [address] [place] [address], [place] [id number] Jul, 2014 [facility] [address] [id number] [address] [place] [address], [place] [id number] Jul, 2014 [facility] [address] [id number] [address] [place] [address], [place] [id number] Jul, 2014 [facility] [address] [id number] [address] [place] [address], [place] [id number] Jul, 2014 [facility] [address] [id number] [address] [place] [address], [place] [id number] Jul, 2014 [facility] [address] [id number] [address] [place] [address], [place] [id number] Jul, 2014 [facility] [address] [id number] [address] [place] [address], [place] [id number] Jul, 2014 [facility] [address] [id number] [address] [place] [address], [place] [id number] Jul, 2014 [facility] [address] [id number] [address] [place] [address], [place] [id number] Jul, 2014 [facility] [address] [id number] [address] [place] [address], [place] [id number] Jul, 2014 [facility] [address] [id number] [address] [place] [address], [place] [id number] Jun, [facility] [address] [id number] [address] [place] [address], [place] [id number] Jun, [facility] [address] [id number] [address] [place] [address], [place] [id number] Jun, [facility] [address] [id number] [address] [place] [address], [place] [id number] Jun, [facility] [address] [id number] [address] [place] [address], [place] [id number] Jun, [facility] [address] [id number] [address] [place] [address], [place] [id number] Jun, [facility] [address] [id number] [address] [place] [address], [place] [id number] Jun, [facility] [address] [id number] [address] [place] [address], [place] [id number] Jun, [facility] [address] [id number] [address] [place] [address], [place] [id number] Jun, [facility] [address] [id number] [address] [place] [address], [place] [id number] Jun, [facility] [address] [id number] [address] [place] [address], [place] [id number] Jun, [facility] [address] [id number] [address] [place] [address], [place] [id number] Jun, [facility] [address] [id number] [address] [place] [address], [place] [id number] Jun, [facility] [address] [id number] [address] [place] [address], [place] [id number] Jun, [facility] [address] [id number] [address] [place] [address], [place] [id number] May, [facility] [address] [id number] [address] [place] [address], [place] [id number] May, [facility] [address] [id number] [address] [place] [address], [place] [id number] May, [facility] [address] [id number] [place] [address] May, [facility] [address] [id number] [address] [place] [address], [place] [id number] Apr, [facility] [address] [id number] [address] [place] [address], [place] [id number] Apr, [facility] [address] [id number] [address] [place] [address], [place] [id number] Apr, [facility] [address] [id number] [address] [place] [id number] Apr, [facility] [address] [id number] [address] [place] [address], [place] [id number] Apr, [facility] [address] [id number] [address] [place] [id number] Apr, [facility] [address] [id number] [address] [place] [address], [place] [id number] Mar, [facility] [address] [id number] [address] [place] [address], [place] [id number] Mar, [facility] [address] [id number] [address] [place] [address], [place] [id number] Mar, [facility] [address] [id number] [address] [place] [address], [place] [id number] Mar, [facility] [address] [id number] [address] [place] [id number] 15 Mar, 2014 [facility] [address] [id number] [address] [place] [id number] 15 Mar, 2014 [facility] [address] [id number] [address] [place] [address], [place] [id number] Mar, [facility] [address] [id number] [address] [place] [address], [place] [id number] Mar, [facility] [address] [id number] [address] [place] [id number] Mar, [facility] [address] [id number] [address] [place] [address], [place] [id number] 07 Mar, 2014 [facility] [address] [id number] [address] [place] [address], [place] [id number] 07 Mar, 2014 [facility] [address] [id number] [address] [place] [address], [place] [id number] 07 Mar, 2014 [facility] [address] [id number] [address] [place] [address], [place] [id number] 06 Mar, 2014 [facility] [address] [id number] [address] [place] [address], [place] [id number] 26 Feb, 2013 [facility] [address] [id number] [address] [place] [address], [place] [id number] 26 Feb, 2014 [facility] [address] [id number] [address] [place] [address], [place] [id number] 23 Feb, 2013 [facility] [address] [id number] [address] [place] [address], [place] [id number] 23 Feb, 2013 [facility] [address] [id number] [address] [place] [address], [place] [id number] 19 Feb, 2014 [facility] [address] [id number] [address] [place] [address], [place] [id number] 19 Feb, 2014 [facility] [address] [id number] [address] [place] [address], [place] [id number] 13 Feb, 2014 [facility] [address] [id number] [address] [place] [address], [place] [id number] 13 Feb, 2014 [facility] [address] [id number] [address] [place] [address], [place] [id number] 12 Feb, 2014 [facility] [address] [id number] [address] [place] [address], [place] [id number] 12 Feb, 2014 [facility] [address] [id number] [address] [place] [address], [place] [id number] 15 Jan, 2014 [facility] [address] [id number] [address] [place] [address], [place] [id number] Jan, [facility] [address] [id number] [facility] [address] Dec, [facility] [address] [id number] [address] [place] [address], [place] [id number] Dec, [facility] [address] [id number] [address] [place] [address], [place] [id number] Dec, [facility] [address] [id number] [address] [place] [address], [place] [id number] Dec, [facility] [address] [id number] [address] [place] [address], [place] [id number] Dec, [facility] [address] [id number] [address] [place] [address], [place] [id number] Dec, [facility] [address] [id number] [address] [place] [address], [place] [id number] Nov, [facility] [address] [id number] [address] [place] [address], [place] [id number] Nov, [facility] [address] [id number] [address] [place] [address], [place] [id number] Nov, [facility] [address] [id number] [address] [place] [address], [place] [id number] Nov, [facility] [address] [id number] [address] [place] [address], [place] [id number] October, [facility] [address] [id number] [address] [place] [address], [place] [id number] October, [facility] [address] [id number] [address] [place] [address], [place] [address] October, [facility] [address] [id number] [address] [place] [address], [place] [id number] October, [facility] [address] [id number] [address] [place] [address], [place] [id number] October, [facility] [address] [id number] [address] [place] [address], [place] [id number] October, [facility] [address] [id number] [address] [place] [address], [place] [address] October, [facility] [address] [id number] [address] [place] [address], [place] [address] October, [facility] [address] [id number] [address] [place] [address], [place] [id number] October, [facility] [address] [id number] [address] [place] [address], [place] [address] October, [facility] [address] [id number] [address] [place] [address], [place] [id number] October, [facility] [address] [id number] [address] [place] [address], [place] [id number] October, [facility] [address] [id number] [address] [place] [address], [place] [id number] October, [facility] [address] [id number] [address] [place] [address], [place] [id number] October, [facility] [address] [id number] [address] [place] [address], [place] [address] October, [facility] [address] [id number] [address] [place] [address], [place] [id number] October, [facility] [address] [id number] [address] [place] [address], [place] [id number] Sep, [facility] [address] [id number] [address] [place] [address], [place] [address] Sep, [facility] [address] [id number] [address] [place] [address], [place] [address] Sep, [facility] [address] [id number] [address] [place] [address], [place] [address] Sep, [facility] [address] [id number] [address] [place] [address], [place] [address] Sep, [facility] [address] [id number] [address] [place] [address], [place] [address] Sep, [facility] [address] [id number] [address] [place] [address], [place] [address] Aug, [facility] [address] [id number] [address] [place] [address], [place] [address] Aug, [facility] [address] [id number] [address] [place] [address], [place] [id number] Aug, [facility] [address] [id number] [address] [place] [address], [place] [address] Aug, [facility] [address] [id number] [address] [place] [address], [place] [address] Aug, [facility] [address] [id number] [address] [place] [address], [place] [id number] Aug, [facility] [address] [id number] [address] [place] [address], [place] [id number] Jul, [facility] [address] [id number] [address] [place] [address], [place] [id number] Jul, [facility] [address] [id number] [address] [place] [address], [place] [id number] Jul, [facility] [address] [id number] [address] [place] [address], [place] [address] Jul, [facility] [address] [id number] [address] [place] [address], [place] [id number] Jun, [facility] [address] [id number] [address] [place] [address], [place] [address] Jun, [facility] [address] [id number] [address] [place] [address], [place] [address] May, [facility] [address] [id number] [address] [place] [address], [place] [address] May, [facility] [address] [id number] [place] [address] 10 May, 2013 [facility] [address] [id number] [address] [place] [address], [place] [address] May, [facility] [address] [id number] [address] [place] [id number] May, [facility] [address] [id number] [address] [place] [id number] Apr, [facility] [address] [id number] [address] [place] [id number] Apr, [facility] [address] [id number] [address] [place] [address], [place] [id number] Apr, [facility] [address] [id number] [address] [place] [id number] Apr, [facility] [address] [id number] [address] [place] [id number] Apr, [facility] [address] [id number] [address] [place] [id number] Apr, [facility] [address] [id number] [address] [place] [id number] 15 Mar, 2013 [facility] [address] [id number] [address] [place] [id number] 15 Mar, 2013 [facility] [address] [id number] [address] [place] [id number] 14 Mar, 2013 [facility] [address] [id number] [address] [place] [id number] 14 Mar, 2013 [facility] [address] [id number] [address] [place] [id number] 11 Mar, 2013 [facility] [address] [id number] [address] [place] [id number] 11 Mar, 2013 [facility] [address] [id number] [address] [place] [id number] 23 Feb, 2013 [facility] [address] [id number] [address] [place] [address], [place] [address] Feb, [facility] [address] [id number] [address] [place] [address], [place] [id number] Feb, [facility] [address] [id number] [address] [place] [address], [place] [id number] Jan, [facility] [address] [id number] [address] [place] [address], [place] [id number] Jan, [facility] [address] [id number] [address] [place] [address], [place] [id number] Jan, [facility] [address] [id number] [address] [place] [address], [place] [id number] Jan, [facility] [address] [id number] [address] [place] [address], [place] [id number] Jan, [facility] [address] [id number] [address] [place] [address], [place] [id number] Jan, [facility] [address] [id number] [address] [place] [address], [place] [id number] Dec, [facility] [address] [id number] [address] [place] [address], [place] [id number] Dec, [facility] [address] [id number] [address] [place] [address], [place] [id number] Dec, [facility] [address] [id number] [address] [place] [address], [place] [id number] Dec, [facility] [address] [id number] [address] [place] [address], [place] [id number] Dec, [facility] [address] [id number] [address] [place] [address], [place] [id number] Dec, [facility] [address] [id number] [address] [place] [address], [place] [id number] Nov, [facility] [address] [id number] [address] [place] [address], [place] [id number] Nov, [facility] [address] [id number] [address] [place] [address], [place] [id number] 18 Nov, 2012 [facility] [address] [id number] [address] [place] [address], [place] [id number] Nov, [facility] [address] [id number] [address] [place] [address], [place] [id number] Nov, [facility] [address] [id number] [address] [place] [address], [place] [id number] Nov, [facility] [address] [id number] [address] [place] [address], [place] [id number] October, [facility] [address] [id number] [address] [place] [address], [place] [id number] October, [facility] [address] [id number] [address] [place] [address], [place] [id number] October, [facility] [address] [id number] [address] [place] [address], [place] [id number] October, [facility] [address] [id number] [address] [place] [address], [place] [id number] October, [facility] [address] [id number] [address] [place] [address], [place] [id number] Sep, [facility] [address] [id number] [address] [place] [address], [place] [id number] Sep, [facility] [address] [id number] [address] [place] [address], [place] [id number] Sep, [facility] [address] [id number] [address] [place] [address], [place] [id number] Sep, [facility] [address] [id number] [address] [place] [address], [place] [id number] Sep, [facility] [address] [id number] [address] [place] [address], [place] [id number] Aug, [facility] [address] [id number] [address] [place] [address], [place] [id number] 07 Aug, 2012 [facility] [address] [id number] [address] [place] [address], [place] [id number] 04 Aug, 2012 [facility] [address] [id number] [address] [place] [address], [place] [id number] 21 Jul, 2012 [facility] [address] [id number] [address] [place] [address], [place] [id number] 20 Jul, 2012 [facility] [address] [id number] [address] [place] [address], [place] [id number] 11 Jul, 2012 [facility] [address] [id number] [address] [place] [address], [place] [id number] 08 Jul, 2012 [facility] [address] [id number] [address] [place] [address], [place] [id number] 06 Jul, 2012 [facility] [address] [id number] [address] [place] [address], [place] [id number] 05 Jul, 2012 [facility] [address] [id number] [address] [place] [address], [place] [id number] 15 Jun, 2012 [facility] [address] [id number] [address] [place] [address], [place] [id number] 16 Apr, 2012 [facility] [address] [id number] [address] [place] [address], [place] [id number] 16 Apr, 2012 [facility] [address] [id number] [address] [place] [address], [place] [id number] Apr, [facility] [address] [id number] [address] [place] [address], [place] [id number] Apr, [facility] [address] [id number] [address] [place] [address], [place] [id number] Mar, [facility] [address] [id number] [address] [place] [address], [place] [id number] Mar, [facility] [address] [id number] [address] [place] [address], [place] [id number] Mar, [facility] [address] [id number] [address] [place] [address], [place] [id number] Mar, [facility] [address] [id number] [address] [place] [place] [address] [id number] Mar, [facility] [address] [id number] [address] [place] [address], [place] [id number] Feb, [facility] [address] [id number] [address] [place] [address], [place] [id number] Jan, [facility] [address] [id number] [address] [place] [address], [place] [id number] Jan, [facility] [address] [id number] [address] [place] [address], [place] [id number] Jan, [facility] [address] [id number] [address] [place] [address], [place] [id number] Dec, [facility] [address] [id number] [address] [place] [address], [place] [id number] Nov, [facility] [address] [id number] [address] [place] [address], [place] [id number] Nov, [facility] [address] [id number] [address] [place] [address], [place] [id number] Nov, [facility] [address] [id number] [address] [place] [address], [place] [id number] Nov, [facility] [address] [id number] [address] [place] [address], [place] [id number] Nov, [facility] [address] [id number] [address] [place] [address], [place] [id number] October, [facility] [address] [id number] [address] [place] [address], [place] [id number] October, [facility] [address] [id number] [address] [place] [address], [place] [id number] October, [facility] [address] [id number] [place] [id number] October, [facility] [address] [facility] [id number] [place] [address] October, IMMUNIZATIONS No Known Immunizations SOCIAL HISTORY [...]
--- OUTSIDE RECORDS SUMMARY | 2020-01-25 07:53 | XMS REPORT ---
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41 Active [id number] ALLERGIES No Information ENCOUNTERS Encounter Location Date Diagnosis [facility] [address] [facility] [id number] [address] [place] [phone] Nov, Inflammatory spondylopathy o f sacral region M46.98 [facility] [address] [facility] [id number] [address] [place] [phone] Nov, [facility] [address] [facility] [id number] [address] [place] [id number] 14 Nov, 2018 Labyrinthitis of left ear H8 3.02 [facility] [address] [id number] [address] [place] [phone] Nov, Arthritis M19.90 [facility] [address] [id number] [address] [place] [phone] Sep, Arthritis M19.90 [facility] [address] [facility] [id number] [address] [place] [phone] Sep, Renal insufficiency N28.9 an d Unspecified kidney failure N19 [facility] [address] [id number] [address] [place] [phone] Sep, Renal insufficiency N28.9 an d Unspecified kidney failure N19 [facility] [address] [id number] [address] [place] [id number] Sep, Arthritis M19.90 [facility] [address] [id number] [address] [place] [phone] Aug, Exercise counseling Z71.82 [facility] [address] [id number] [address] [place] [phone] Aug, [facility] [address] [facility] [id number] [address] [place] [id number] Jul, Labyrinthitis of left ear H8 3.02 [facility] [address] [facility] [id number] [address] [place] [phone] Jul, Labyrinthitis of left ear H8 3.02 [facility] [address] [id number] [address] [place] [phone] Jul, Exercise counseling Z71.82 [facility] [address] [facility] [id number] [address] [place] [phone] 18 Jul, 2018 [facility] [address] [facility] [id number] [address] [place] [id number] 14 Jul, 2018 Arthritis M19.90 [facility] [address] [facility] [id number] [address] [place] [id number] 13 Jul, 2018 Encounter for Medicare annua l wellness exam Z00.00 ; Chronic kidney disease, stage 4 (severe) N18.4 ; Body mass index (BMI) of 40.0-44.9 in adult Z68.41 ; Hyperparathyroidism E21.3 and BMI 40.0-44.9, adult Z68.41 [facility] [address] [place] [id number] [address] [place] [id number] 13 Jul, 2018 Encounter for Medicare annua l wellness exam Z00.00 ; Chronic kidney disease, stage 4 (severe) N18.4 ; Hyperparathyroidism E21.3 ; Body mass index (BMI) of 40.0-44.9 in adult Z68.41 and Encounter for immunization Z23 [place] [id number] [place] [phone] 11 Jul, 2018 Tail bone pain M53.3 [place] [address] [address] 29 Jun, 2018 Exercise counseling Z71.82 [place] [address] [address] Jun, Labyrinthitis of left ear H8 3.02 [place] [address] [place] [id number] [address] [place] [phone] Jun, Tail bone pain M53.3 ; Irrit able bowel syndrome with both constipation and diarrhea K58.2 and Dysfunction of left eustachian tube H69.82 [place] [address] [place] [id number] [address] [place] [phone] Jun, Exercise counseling Z71.82 [place] [address] [facility] [id number] [address] [place] [id number] Jun, Arthritis M19.90 [place] [address] [place] [id number] [place] [phone] 16 Jun, 2018 Irritable bowel syndrome wit h both constipation and diarrhea K58.2 ; Tail bone pain M53.3 and Dysfunction of left eustachian tube H69.82 [facility] [address] [id number] [address] [place] [id number] Jun, Exercise counseling Z71.82 [facility] [address] [id number] [address] [place] [id number] Jun, Exercise counseling Z71.82 [facility] [address] [id number] [address] [place] [id number] Jun, Labyrinthitis of left ear H8 3.02 [facility] [address] [id number] [address] [place] [id number] May, Exercise counseling Z71.82 [facility] [address] [id number] [address] [place] [id number] May, Arthritis M19.90 [facility] [address] [id number] [address] [place] [phone] May, Exercise counseling Z71.82 [facility] [address] [id number] [address] [place] [address] May, Exercise counseling Z71.82 [facility] [address] [id number] [address] [place] [id number] May, Labyrinthitis of left ear H8 3.02 [facility] [address] [id number] [address] [place] [id number] May, Exercise counseling Z71.82 [facility] [address] [id number] [address] [place] [phone] Apr, Arthritis M19.90 [facility] [address] [id number] [address] [place] [phone] Apr, Exercise counseling Z71.82 [facility] [address] [id number] [address] [place] [phone] Apr, Exercise counseling Z71.82 [facility] [address] [id number] [address] [place] [phone] Apr, Primary osteoarthritis of le ft knee M17.12 [facility] [address] [place] [id number] [address] [place] [phone] Apr, Labyrinthitis of left ear H8 3.02 [facility] [address] [place] [id number] [address] [place] [phone] Mar, Arthritis M19.90 [place] [address] [address] Mar, [place] [address] [place] [id number] [place] [phone] Mar, Chronic kidney disease, stag e 4 (severe) N18.4 [place] [address] [place] [id number] [place] [phone] Mar, Chronic kidney disease, stag e 4 (severe) N18.4 [place] [address] [address] Mar, Labyrinthitis of left ear H8 3.02 [place] [id number] [place] [id number] [address] [place] [phone] Mar, Chronic kidney disease, stag e 4 (severe) N18.4 ; Knee pain, left anterior M25.562 ; Deficiency of other specified B group vitamins E53.8 and Encounter for immunization Z23 [place] [address] [place] [id number] [address] [place] [phone] Mar, Arthritis M19.90 [place] [address] [place] [id number] [address] [place] [phone] Feb, Labyrinthitis of left ear H8 3.02 [place] [address] [place] [id number] [place] [address] Feb, Arthritis M19.90 [place] [address] [place] [id number] [address] [place] [phone] Jan, Labyrinthitis of left ear H8 3.02 [place] [address] [place] [id number] [address] [place] [phone] Jan, Arthritis M19.90 [place] [address] [address] Dec, Labyrinthitis of left ear H8 3.02 [place] [address] [address] Nov, Arthritis M19.90 [place] [address] [address] Nov, Labyrinthitis of left ear H8 3.02 [place] [address] [address] Nov, BMI 40.0-44.9, adult Z68.41 ; Chronic kidney disease, stage 4 (severe) N18.4 and Acute right-sided thoracic back pain M54.6 [place] [address] [address] October, Labyrinthitis of left ear H8 3.02 and Arthritis M19.90 [place] [address] [address] Sep, BPV (benign positional verti go), bilateral H81.13 ; Dysfunction of left eustachian tube H69.82 and BMI 40.0-44.9, adult Z68.41 [place] [address] [address] Sep, Labyrinthitis of left ear H8 3.02 and Arthritis M19.90 [place] [address] [address] Sep, [place] [address] [address] Sep, [place] [address] [address] Sep, Chronic kidney disease, stag e 4 (severe) N18.4 [facility] [address] [facility] [id number] [address] [place] [id number] Sep, Chronic kidney disease, stag e 4 (severe) N18.4 [facility] [address] [id number] [address] [place] [id number] Aug, Labyrinthitis of left ear H8 3.02 and Arthritis M19.90 [facility] [address] [id number] [address] [place] [phone] Aug, [facility] [address] [id number] [address] [place] [id number] Jul, [facility] [address] [facility] [id number] [address] [place] [phone] Jul, Arthritis M19.90 and Labyrin thitis of left ear H83.02 [facility] [address] [place] [id number] [address] [place] [id number] Jul, [facility] [address] [facility] [id number] [address] [place] [id number] Jun, [facility] [address] [facility] [id number] [address] [place] [phone] Jun, Arthritis M19.90 and Labyrin thitis of left ear H83.02 [facility] [address] [facility] [id number] [address] [place] [phone] Jun, Pre-op evaluation Z01.818 ; BMI 40.0-44.9, adult Z68.41 and Encounter for immunization Z23 [facility] [address] [facility] [id number] [address] [place] [phone] May, Arthritis M19.90 and Labyrin thitis of left ear H83.02 [facility] [address] [facility] [id number] [address] [place] [phone] Apr, Labyrinthitis of left ear H8 3.02 [facility] [address] [id number] [address] [place] [id number] Apr, Arthritis M19.90 and Labyrin thitis of left ear H83.02 [facility] [address] [facility] [id number] [address] [place] [phone] 10 Mar, 2017 Arthritis M19.90 and Labyrin thitis of left ear H83.02 [facility] [address] [facility] [id number] [address] [place] [id number] 05 Mar, 2017 Chronic kidney disease, stag e 4 (severe) N18.4 [facility] [address] [facility] [id number] [address] [place] [phone] Feb, Arthritis M19.90 and Labyrin thitis of left ear H83.02 [place] [address] [facility] [id number] [address] [place] [phone] Jan, Labyrinthitis of left ear H8 3.02 and Deficiency of other specified B group vitamins E53.8 [place] [address] [facility] [id number] [address] [place] [phone] Dec, Arthritis M19.90 [place] [address] [facility] [id number] [address] [place] [id number] Dec, BPV (benign positional verti go), bilateral H81.13 [place] [address] [facility] [id number] [address] [place] [id number] Dec, [facility] [address] [facility] [id number] [address] [place] [phone] Dec, [facility] [address] [id number] [address] [place] [id number] Dec, [facility] [address] [facility] [id number] [address] [place] [phone] Nov, Arthritis M19.90 and Deficie ncy of other specified B group vitamins E53.8 [place] [address] [facility] [id number] [address] [place] [phone] Nov, Arthritis M19.90 [facility] [address] [id number] [address] [place] [id number] Nov, Hyperparathyroidism E21.3 [facility] [address] [id number] [address] [place] [id number] October, [facility] [address] [facility] [id number] [address] [place] [phone] October, Hyperparathyroidism E21.3 [facility] [address] [facility] [id number] [address] [place] [id number] October, [facility] [address] [facility] [id number] [address] [place] [id number] October, Renal insufficiency N28.9 an d Hyperparathyroidism E21.3 [facility] [address] [facility] [id number] [address] [place] [id number] October, [facility] [address] [facility] [id number] [address] [place] [phone] October, Renal insufficiency N28.9 an d Hyperparathyroidism E21.3 [facility] [address] [facility] [id number] [address] [place] [id number] October, Arthritis M19.90 [facility] [address] [facility] [id number] [address] [place] [id number] Sep, [facility] [address] [facility] [id number] [address] [place] [id number] Sep, Lumbar neuritis M54.16 ; Tho racic abscess J86.9 and Deficiency of other specified B group vitamins E53.8 [facility] [address] [facility] [id number] [address] [place] [phone] Sep, [facility] [address] [facility] [id number] [address] [place] [phone] Aug, Arthritis M19.90 [facility] [address] [facility] [id number] [address] [place] [id number] Aug, Hyperparathyroidism E21.3 [facility] [address] [facility] [id number] [address] [place] [phone] Aug, Hyperparathyroidism E21.3 [facility] [address] [facility] [id number] [address] [place] [id number] Aug, Arthritis M19.90 [facility] [address] [facility] [id number] [address] [place] [id number] Jul, Mass of throat R22.1 [facility] [address] [facility] [id number] [address] [place] [phone] Jul, [facility] [address] [facility] [id number] [address] [place] [id number] Jul, Arthritis M19.90 [facility] [address] [facility] [id number] [address] [place] [phone] Jun, Arthritis M19.90 [facility] [address] [facility] [id number] [address] [place] [phone] Jun, [facility] [address] [facility] [id number] [address] [place] [id number] Jun, Renal insufficiency N28.9 an d 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 [facility] [address] [facility] [id number] [address] [place] [address] 05 Jun, 2016 Medicare welcome exam Z00.00 ; Encounter for immunization Z23 ; Arthritis M19.90 ; Medicare annual wellness visit, initial Z00.00 ; Medicare annual wellness visit, subsequent Z00.00 and Deficiency of other specified B group vitamins E53.8 [facility] [address] [facility] [id number] [address] [place] [phone] May, Renal insufficiency N28.9 an d 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 [facility] [address] [facility] [id number] [address] [place] [phone] May, Renal insufficiency N28.9 [facility] [address] [facility] [id number] [address] [place] [phone] 16 May, 2016 Renal insufficiency N28.9 [facility] [address] [facility] [id number] [address] [place] [phone] 14 May, 2016 [facility] [address] [facility] [id number] [address] [place] [id number] 16 Apr, 2016 [facility] [address] [facility] [id number] [address] [place] [id number] 16 Apr, 2016 [facility] [address] [facility] [id number] [address] [place] [id number] 14 Apr, 2016 Mass of throat R22.1 [facility] [address] [facility] [id number] [address] [place] [id number] 10 Apr, 2016 [facility] [address] [facility] [id number] [address] [place] [id number] Apr, Mass of throat R22.1 [facility] [address] [facility] [id number] [address] [place] [id number] 04 Apr, 2016 Mass of throat R22.1 [facility] [address] [facility] [id number] [address] [place] [id number] Mar, [facility] [address] [facility] [id number] [address] [place] [phone] Mar, [facility] [address] [facility] [id number] [address] [place] [phone] Mar, [facility] [address] [place] [id number] [address] [place] [phone] 24 Mar, 2016 Parathyroid abnormality E21. 5 and Encounter for immunization Z23 [facility] [address] [facility] [id number] [address] [place] [id number] 17 Mar, 2016 [facility] [address] [facility] [id number] [address] [place] [id number] 11 Mar, 2016 [facility] [address] [place] [id number] [address] [place] [id number] Feb, Renal insufficiency N28.9 an d Hyperparathyroidism E21.3 [facility] [address] [facility] [id number] [address] [place] [id number] Feb, [facility] [address] [facility] [id number] [address] [place] [phone] 15 Feb, 2016 Renal insufficiency N28.9 an d Hyperparathyroidism E21.3 [place] [address] [facility] [id number] [address] [place] [id number] 14 Feb, 2016 [facility] [address] [facility] [id number] [address] [place] [phone] Feb, [place] [address] [address] Feb, [place] [address] [address] Jan, [place] [address] [address] Jan, Arthritis M19.90 ; Lumbago w ith sciatica, right side M54.41 and Other chronic pain G89.29 [place] [address] [address] Jan, [place] [address] [address] Dec, Arthritis M19.90 ; Lumbago w ith sciatica, right side M54.41 and Other chronic pain G89.29 [place] [id number] [place] [address] 16 Nov, 2015 Deficiency of other specifie d B group vitamins E53.8 ; Primary insomnia F51.01 ; Mood disorder F39 and Lumbago with sciatica, right side M54.41 [place] [address] [facility] [id number] [address] [place] [id number] Nov, Hyperparathyroidism E21.3 [place] [address] [place] [id number] [address] [place] [id number] Nov, Unspecified kidney failure N 19 and Hyperparathyroidism E21.3 [facility] [address] [address] October, Hyperparathyroidism E21.3 [facility] [address] [address] October, [facility] [address] [address] October, Hyperparathyroidism E21.3 [facility] [address] [address] October, Hyperparathyroidism E21.3 [facility] [address] [address] Sep, Hyperparathyroidism E21.3 ; Hypercholesterolemia E78.0 and Arthritis M19.90 [facility] [address] [address] Aug, [facility] [address] [address] Aug, Deficiency of other specifie d B group vitamins E53.8 [facility] [address] [address] Aug, [facility] [address] [address] Jul, Urinary frequency R35.0 [facility] [address] [address] Jul, Urinary frequency R35.0 [facility] [address] [address] Jul, [facility] [address] [address] Jul, [facility] [address] [address] Jun, Pain in left knee M25.562 [facility] [address] [id number] [address] [place] [id number] Jun, [facility] [address] [id number] [address] [place] [id number] May, Swelling of left knee joint M25.462 [facility] [address] [id number] [address] [place] [id number] May, [facility] [address] [id number] [address] [place] [id number] May, [facility] [address] [id number] [address] [place] [id number] May, [facility] [address] [facility] [id number] [address] [place] [id number] Apr, Renal insufficiency N28.9 an d Chronic kidney disease, stage 4 (severe) N18.4 [facility] [address] [facility] [id number] [address] [place] [id number] Apr, Unspecified kidney failure N 19 [facility] [address] [facility] [id number] [address] [place] [id number] Apr, Unspecified kidney failure N 19 [facility] [address] [facility] [id number] [address] [place] [id number] Apr, [facility] [address] [facility] [id number] [address] [place] [id number] Apr, Hyperparathyroidism, unspeci fied 252.00 [facility] [address] [facility] [id number] [address] [place] [id number] Apr, [facility] [address] [facility] [id number] [address] [place] [id number] Mar, [facility] [address] [facility] [id number] [address] [place] [id number] Mar, [facility] [address] [facility] [id number] [address] [place] [id number] Mar, Hyperparathyroidism, unspeci fied 252.00 [facility] [address] [id number] [address] [place] [id number] Feb, [facility] [address] [facility] [id number] [address] [place] [id number] Feb, Otalgia 388.70 [facility] [address] [facility] [id number] [address] [place] [id number] Feb, [facility] [address] [id number] [address] [place] [id number] Feb, [facility] [address] [facility] [facility] [id number] [address] [place] [phone] Jan, [facility] [address] [facility] [id number] [address] [place] [id number] Jan, Hyperparathyroidism, unspeci fied 252.00 [facility] [address] [facility] [id number] [address] [place] [id number] Jan, [facility] [address] [facility] [id number] [address] [place] [id number] Jan, Other B-complex deficiencies 266.2 and Hyperparathyroidism, unspecified 252.00 [facility] [address] [facility] [id number] [address] [place] [phone] Jan, [facility] [address] [facility] [id number] [address] [place] [phone] Jan, [facility] [address] [facility] [id number] [address] [place] [phone] Jan, [facility] [address] [facility] [id number] [address] [place] [phone] Dec, [facility] [address] [facility] [id number] [address] [place] [phone] Dec, [facility] [address] [facility] [id number] [address] [place] [phone] Dec, [facility] [address] [id number] [address] [place] [id number] 15 Nov, 2014 Routine check-up V70.0 and P re-op exam V72.84 [facility] [address] [id number] [address] [place] [phone] 12 Nov, 2014 [facility] [address] [id number] [address] [place] [phone] Nov, [facility] [address] [id number] [address] [place] [phone] October, [facility] [address] [id number] [address] [place] [id number] October, Other B-complex deficiencies 266.2 [facility] [address] [id number] [address] [place] [phone] October, [facility] [address] [id number] [address] [place] [id number] 14 Sep, 2014 [facility] [address] [id number] [address] [place] [phone] Sep, [facility] [address] [id number] [address] [place] [phone] 20 Aug, 2014 [facility] [address] [id number] [address] [place] [id number] 20 Aug, 2014 [facility] [address] [id number] [address] [place] [id number] 17 Aug, 2014 [facility] [address] [id number] [address] [place] [id number] 17 Aug, 2014 [facility] [address] [id number] [address] [place] [phone] Aug, [facility] [address] [id number] [address] [place] [phone] Aug, [facility] [address] [id number] [address] [place] [id number] 18 Jul, 2014 [facility] [address] [id number] [address] [place] [address], [place] [address] Jul, 2014 [facility] [address] [id number] [address] [place] [address], [place] [address] Jul, 2014 [facility] [address] [id number] [address] [place] [address], [place] [address] Jul, 2014 [facility] [address] [id number] [address] [place] [address], [place] [address] Jul, 2014 [facility] [address] [id number] [address] [place] [address], [place] [address] Jul, 2014 [facility] [address] [id number] [address] [place] [address], [place] [address] Jul, 2014 [facility] [address] [id number] [address] [place] [address], [place] [address] Jul, 2014 [facility] [address] [id number] [address] [place] [address], [place] [address] Jul, 2014 [facility] [address] [id number] [address] [place] [address], [place] [address] Jul, 2014 [facility] [address] [id number] [address] [place] [address], [place] [address] Jul, 2014 [facility] [address] [id number] [address] [place] [address], [place] [address] Jul, 2014 [facility] [address] [id number] [address] [place] [address], [place] [address] Jul, 2014 [facility] [address] [id number] [address] [place] [address], [place] [address] Jul, 2014 [facility] [address] [id number] [address] [place] [address], [place] [address] Jun, [facility] [address] [id number] [address] [place] [address], [place] [address] Jun, [facility] [address] [id number] [address] [place] [address], [place] [address] Jun, [facility] [address] [id number] [address] [place] [address], [place] [address] Jun, [facility] [address] [id number] [address] [place] [address], [place] [address] Jun, [facility] [address] [id number] [address] [place] [address], [place] [address] Jun, [facility] [address] [id number] [address] [place] [address], [place] [address] Jun, [facility] [address] [id number] [address] [place] [address], [place] [address] Jun, [facility] [address] [id number] [address] [place] [address], [place] [address] Jun, [facility] [address] [id number] [address] [place] [address], [place] [address] Jun, [facility] [address] [id number] [address] [place] [address], [place] [address] Jun, [facility] [address] [id number] [address] [place] [address], [place] [address] Jun, [facility] [address] [id number] [address] [place] [address], [place] [address] Jun, [facility] [address] [id number] [address] [place] [address], [place] [address] Jun, [facility] [address] [id number] [address] [place] [address], [place] [address] May, [facility] [address] [id number] [address] [place] [address], [place] [address] May, [facility] [address] [id number] [address] [place] [address], [place] [address] May, [facility] [address] [id number] [address] [address] May, [facility] [address] [id number] [address] [place] [address], [place] [address] Apr, [facility] [address] [id number] [address] [place] [address], [place] [address] Apr, [facility] [address] [id number] [address] [place] [address], [place] [address] Apr, [facility] [address] [id number] [address] [place] [id number] Apr, [facility] [address] [id number] [address] [place] [address], [place] [address] Apr, [facility] [address] [id number] [address] [place] [phone] Apr, [facility] [address] [id number] [address] [place] [address], [place] [address] Mar, [facility] [address] [id number] [address] [place] [address], [place] [address] Mar, [facility] [address] [id number] [address] [place] [address], [place] [address] Mar, [facility] [address] [id number] [address] [place] [address], [place] [address] Mar, [facility] [address] [id number] [address] [place] [id number] 15 Mar, 2014 [facility] [address] [id number] [address] [place] [phone] 15 Mar, 2014 [facility] [address] [id number] [address] [place] [address], [place] [address] Mar, [facility] [address] [id number] [address] [place] [address], [place] [address] Mar, [facility] [address] [id number] [address] [place] [phone] Mar, [facility] [address] [id number] [address] [place] [address], [place] [address] 07 Mar, 2014 [facility] [address] [id number] [address] [place] [address], [place] [address] 07 Mar, 2014 [facility] [address] [id number] [address] [place] [address], [place] [address] 07 Mar, 2014 [facility] [address] [id number] [address] [place] [address], [place] [address] 06 Mar, 2014 [facility] [address] [id number] [address] [place] [address], [place] [address] 26 Feb, 2013 [facility] [address] [id number] [address] [place] [address], [place] [address] 26 Feb, 2014 [facility] [address] [id number] [address] [place] [address], [place] [address] 23 Feb, 2013 [facility] [address] [id number] [address] [place] [address], [place] [address] 23 Feb, 2013 [facility] [address] [id number] [address] [place] [address], [place] [address] 19 Feb, 2014 [facility] [address] [id number] [address] [place] [address], [place] [address] 19 Feb, 2014 [facility] [address] [id number] [address] [place] [address], [place] [address] 13 Feb, 2014 [facility] [address] [id number] [address] [place] [address], [place] [address] 13 Feb, 2014 [facility] [address] [id number] [address] [place] [address], [place] [address] 12 Feb, 2014 [facility] [address] [id number] [address] [place] [address], [place] [address] 12 Feb, 2014 [facility] [address] [id number] [address] [place] [address], [place] [address] 15 Jan, 2014 [facility] [address] [id number] [address] [place] [address], [place] [address] Jan, [facility] [address] [id number] [facility] [place] [address] Dec, [facility] [address] [id number] [address] [place] [address], [place] [address] Dec, [facility] [address] [id number] [address] [place] [address], [place] [address] Dec, [facility] [address] [id number] [address] [place] [address], [place] [address] Dec, [facility] [address] [id number] [address] [place] [address], [place] [address] Dec, [facility] [address] [id number] [address] [place] [address], [place] [address] Dec, [facility] [address] [id number] [address] [place] [address], [place] [address] Nov, [facility] [address] [id number] [address] [place] [address], [place] [address] Nov, [facility] [address] [id number] [address] [place] [address], [place] [address] Nov, [facility] [address] [id number] [address] [place] [address], [place] [address] Nov, [facility] [address] [id number] [address] [place] [address], [place] [address] October, [facility] [address] [id number] [address] [place] [address], [place] [address] October, [facility] [address] [id number] [address] [place] [address], [place] [address] October, [facility] [address] [id number] [address] [place] [address], [place] [address] October, [facility] [address] [id number] [address] [place] [address], [place] [address] October, [facility] [address] [id number] [address] [place] [address], [place] [address] October, [facility] [address] [id number] [address] [place] [address], [place] [address] October, [facility] [address] [id number] [address] [place] [address], [place] [address] October, [facility] [address] [id number] [address] [place] [address], [place] [address] October, [facility] [address] [id number] [address] [place] [address], [place] [address] October, [facility] [address] [id number] [address] [place] [address], [place] [address] October, [facility] [address] [id number] [address] [place] [address], [place] [address] October, [facility] [address] [id number] [address] [place] [address], [place] [address] October, [facility] [address] [id number] [address] [place] [address], [place] [address] October, [facility] [address] [id number] [address] [place] [address], [place] [address] October, [facility] [address] [id number] [address] [place] [address], [place] [address] October, [facility] [address] [id number] [address] [place] [address], [place] [address] Sep, [facility] [address] [id number] [address] [place] [address], [place] [address] Sep, [facility] [address] [id number] [address] [place] [address], [place] [address] Sep, [facility] [address] [id number] [address] [place] [address], [place] [address] Sep, [facility] [address] [id number] [address] [place] [address], [place] [address] Sep, [facility] [address] [id number] [address] [place] [address], [place] [address] Sep, [facility] [address] [id number] [address] [place] [address], [place] [address] Aug, [facility] [address] [id number] [address] [place] [address], [place] [address] Aug, [facility] [address] [id number] [address] [place] [address], [place] [address] Aug, [facility] [address] [id number] [address] [place] [address], [place] [address] Aug, [facility] [address] [id number] [address] [place] [address], [place] [address] Aug, [facility] [address] [id number] [address] [place] [address], [place] [address] Aug, [facility] [address] [id number] [address] [place] [address], [place] [address] Jul, [facility] [address] [id number] [address] [place] [address], [place] [address] Jul, [facility] [address] [id number] [address] [place] [address], [place] [address] Jul, [facility] [address] [id number] [address] [place] [address], [place] [address] Jul, [facility] [address] [id number] [address] [place] [address], [place] [address] Jun, [facility] [address] [id number] [address] [place] [address], [place] [address] Jun, [facility] [address] [id number] [address] [place] [address], [place] [address] May, [facility] [address] [id number] [address] [place] [address], [place] [address] May, [facility] [address] [id number] [address] [address] 10 May, 2013 [facility] [address] [id number] [address] [place] [address], [place] [address] May, [facility] [address] [id number] [address] [place] [address] May, [facility] [address] [id number] [address] [place] [address] Apr, [facility] [address] [id number] [address] [place] [address] Apr, [facility] [address] [id number] [address] [place] [address], [place] [address] Apr, [facility] [address] [id number] [address] [place] [address] Apr, [facility] [address] [id number] [address] [place] [address] Apr, [facility] [address] [id number] [address] [place] [address] Apr, [facility] [address] [id number] [address] [place] [id number] 15 Mar, 2013 [facility] [address] [id number] [address] [place] [id number] 15 Mar, 2013 [facility] [address] [id number] [address] [place] [id number] 14 Mar, 2013 [facility] [address] [id number] [address] [place] [id number] 14 Mar, 2013 [facility] [address] [id number] [address] [place] [id number] 11 Mar, 2013 [facility] [address] [id number] [address] [place] [id number] 11 Mar, 2013 [facility] [address] [id number] [address] [place] [id number] 23 Feb, 2013 [facility] [address] [id number] [address] [place] [address], [place] [address] Feb, [facility] [address] [id number] [address] [place] [address], [place] [address] Feb, [facility] [address] [id number] [address] [place] [address], [place] [address] Jan, [facility] [address] [id number] [address] [place] [address], [place] [address] Jan, [facility] [address] [id number] [address] [place] [address], [place] [address] Jan, [facility] [address] [id number] [address] [place] [address], [place] [address] Jan, [facility] [address] [id number] [address] [place] [address], [place] [address] Jan, [facility] [address] [id number] [address] [place] [address], [place] [address] Jan, [facility] [address] [id number] [address] [place] [address], [place] [address] Dec, [facility] [address] [id number] [address] [place] [address], [place] [address] Dec, [facility] [address] [id number] [address] [place] [address], [place] [address] Dec, [facility] [address] [id number] [address] [place] [address], [place] [address] Dec, [facility] [address] [id number] [address] [place] [address], [place] [address] Dec, [facility] [address] [id number] [address] [place] [address], [place] [address] Dec, [facility] [address] [id number] [address] [place] [address], [place] [address] Nov, [facility] [address] [id number] [address] [place] [address], [place] [address] Nov, [facility] [address] [id number] [address] [place] [address], [place] [address] 18 Nov, 2012 [facility] [address] [id number] [address] [place] [address], [place] [address] Nov, [facility] [address] [id number] [address] [place] [address], [place] [address] Nov, [facility] [address] [id number] [address] [place] [address], [place] [address] Nov, [facility] [address] [id number] [address] [place] [address], [place] [address] October, [facility] [address] [id number] [address] [place] [address], [place] [address] October, [facility] [address] [id number] [address] [place] [address], [place] [address] October, [facility] [address] [id number] [address] [place] [address], [place] [address] October, [facility] [address] [id number] [address] [place] [address], [place] [address] October, [facility] [address] [id number] [address] [place] [address], [place] [address] Sep, [facility] [address] [id number] [address] [place] [address], [place] [address] Sep, [facility] [address] [id number] [address] [place] [address], [place] [address] Sep, [facility] [address] [id number] [address] [place] [address], [place] [address] Sep, [facility] [address] [id number] [address] [place] [address], [place] [address] Sep, [facility] [address] [id number] [address] [place] [address], [place] [address] Aug, [facility] [address] [id number] [address] [place] [address], [place] [address] 07 Aug, 2012 [facility] [address] [id number] [address] [place] [address], [place] [address] 04 Aug, 2012 [facility] [address] [id number] [address] [place] [address], [place] [address] 21 Jul, 2012 [facility] [address] [id number] [address] [place] [address], [place] [address] 20 Jul, 2012 [facility] [address] [id number] [address] [place] [address], [place] [address] 11 Jul, 2012 [facility] [address] [id number] [address] [place] [address], [place] [address] 08 Jul, 2012 [facility] [address] [id number] [address] [place] [address], [place] [address] 06 Jul, 2012 [facility] [address] [id number] [address] [place] [address], [place] [address] 05 Jul, 2012 [facility] [address] [id number] [address] [place] [address], [place] [address] 15 Jun, 2012 [facility] [address] [id number] [address] [place] [address], [place] [address] 16 Apr, 2012 [facility] [address] [id number] [address] [place] [address], [place] [address] 16 Apr, 2012 [facility] [address] [id number] [address] [place] [address], [place] [address] Apr, [facility] [address] [id number] [address] [place] [address], [place] [address] Apr, [facility] [address] [id number] [address] [place] [address], [place] [address] Mar, [facility] [address] [id number] [address] [place] [address], [place] [address] Mar, [facility] [address] [id number] [address] [place] [address], [place] [address] Mar, [facility] [address] [id number] [address] [place] [address], [place] [address] Mar, [facility] [address] [id number] [address] [place] [address], [place] [address] Mar, [facility] [address] [id number] [address] [place] [address], [place] [address] Feb, [facility] [address] [id number] [address] [place] [address], [place] [address] Jan, [facility] [address] [id number] [address] [place] [address], [place] [address] Jan, [facility] [address] [id number] [address] [place] [address], [place] [address] Jan, [facility] [address] [id number] [address] [place] [address], [place] [address] Dec, [facility] [address] [id number] [address] [place] [address], [place] [address] Nov, [facility] [address] [id number] [address] [place] [address], [place] [address] Nov, [facility] [address] [id number] [address] [place] [address], [place] [address] Nov, [facility] [address] [id number] [address] [place] [address], [place] [address] Nov, [facility] [address] [id number] [address] [place] [address], [place] [address] Nov, [facility] [address] [id number] [place] [address], [place] [address] October, [facility] [address] [id number] [place] [address], [place] [address] October, [facility] [address] [id number] [place] [address], [place] [address] October, [facility] [address] [id number] [address] [address] October, [facility] [address] [facility] [id number] [address] [address] October, IMMUNIZATIONS No Known Immunizations SOCIAL HISTORY [...]
--- OUTSIDE RECORDS SUMMARY | 2020-01-25 07:53 | XMS REPORT ---
Author Author Velma CORDERO Organization [facility] Address [address] [place] [address] Care Team Providers Care Chairman & Co Founder Name Role Phone STEPHAN CORDERO Unavailable PROBLEMS Type Condition ICD9-CM Code [id number] Code Onset Dates Condition S tatus SNOMED Code Problem Primary insomnia F51.01 Active 397 2004 Problem Hypercholesteremia E78.0 Active 1 5455530 Problem Corns L84 Active 651285766 Problem Arthritis M19.90 Active 1376850 Problem Hyperparathyroidism E21.3 Active 14758389 Problem 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 Active 24662627 Problem 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 Active 49506705 Problem BPV (benign positional vertigo), bilateral H81.13 Active 685161222 Problem Unspecified kidney failure N19 Act chip 78261076 Problem Myalgia M79.1 Active 56877807 Problem 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 Active 773185687 Problem Mood disorder F39 Active 640085 05 Problem Chronic kidney disease, stage 4 (severe) N18.4 Active 101584005 Problem Primary osteoarthritis of left knee M17.12 Active [id number] Problem Irritable bowel syndrome with both constipation and diarrh ea K58.2 Active 04925603 Problem Body mass index (BMI) of 40.0-44.9 in adult Z68.41 Active 426637310 ALLERGIES No Information ENCOUNTERS Encounter Location Date Diagnosis [facility] [address] [facility] [id number] [address] [place] [phone] Nov, Inflammatory spondylopathy o f sacral region M46.98 [facility] [address] [facility] [id number] [address] [place] [phone] Nov, [facility] [address] [facility] [id number] [address] [place] [id number] 14 Nov, 2018 Labyrinthitis of left ear H8 3.02 [facility] [address] [id number] [address] [place] [id number] Nov, Arthritis M19.90 [facility] [address] [id number] [address] [place] [phone] Sep, Arthritis M19.90 [facility] [address] [facility] [id number] [address] [place] [phone] Sep, Renal insufficiency N28.9 an d Unspecified kidney failure N19 [facility] [address] [id number] [address] [place] [phone] Sep, Renal insufficiency N28.9 an d Unspecified kidney failure N19 [facility] [address] [id number] [address] [place] [phone] Sep, Arthritis M19.90 [facility] [address] [id number] [address] [place] [id number] Aug, Exercise counseling Z71.82 [facility] [address] [id number] [address] [place] [phone] Aug, [facility] [address] [facility] [id number] [address] [place] [phone] Jul, Labyrinthitis of left ear H8 3.02 [facility] [address] [facility] [id number] [address] [place] [id number] Jul, Labyrinthitis of left ear H8 3.02 [facility] [address] [id number] [address] [place] [phone] Jul, Exercise counseling Z71.82 [facility] [address] [facility] [id number] [address] [place] [id number] 18 Jul, 2018 [facility] [address] [facility] [id number] [address] [place] [id number] 14 Jul, 2018 Arthritis M19.90 [facility] [address] [facility] [id number] [address] [place] [id number] 13 Jul, 2018 Encounter for Medicare annua l wellness exam Z00.00 ; Chronic kidney disease, stage 4 (severe) N18.4 ; Body mass index (BMI) of 40.0-44.9 in adult Z68.41 ; Hyperparathyroidism E21.3 and BMI 40.0-44.9, adult Z68.41 [facility] [address] [place] [id number] [address] [place] [phone] 13 Jul, 2018 Encounter for Medicare annua l wellness exam Z00.00 ; Chronic kidney disease, stage 4 (severe) N18.4 ; Hyperparathyroidism E21.3 ; Body mass index (BMI) of 40.0-44.9 in adult Z68.41 and Encounter for immunization Z23 [place] [address] [place] [address] 11 Jul, 2018 Tail bone pain M53.3 [place] [address] [address] 29 Jun, 2018 Exercise counseling Z71.82 [place] [address] [address] Jun, Labyrinthitis of left ear H8 3.02 [place] [address] [place] [id number] [address] [place] [phone] Jun, Tail bone pain M53.3 ; Irrit able bowel syndrome with both constipation and diarrhea K58.2 and Dysfunction of left eustachian tube H69.82 [place] [address] [place] [id number] [address] [place] [address] Jun, Exercise counseling Z71.82 [place] [address] [facility] [id number] [address] [place] [phone] Jun, Arthritis M19.90 [place] [address] [place] [id number] [place] [phone] 16 Jun, 2018 Irritable bowel syndrome wit h both constipation and diarrhea K58.2 ; Tail bone pain M53.3 and Dysfunction of left eustachian tube H69.82 [facility] [address] [id number] [address] [place] [id number] Jun, Exercise counseling Z71.82 [facility] [address] [id number] [address] [place] [id number] Jun, Exercise counseling Z71.82 [facility] [address] [id number] [address] [place] [id number] Jun, Labyrinthitis of left ear H8 3.02 [facility] [address] [id number] [address] [place] [id number] May, Exercise counseling Z71.82 [facility] [address] [id number] [address] [place] [phone] May, Arthritis M19.90 [facility] [address] [id number] [address] [place] [id number] May, Exercise counseling Z71.82 [facility] [address] [id number] [address] [place] [phone] May, Exercise counseling Z71.82 [facility] [address] [id number] [address] [place] [id number] May, Labyrinthitis of left ear H8 3.02 [facility] [address] [id number] [address] [place] [phone] May, Exercise counseling Z71.82 [facility] [address] [id number] [address] [place] [address] Apr, Arthritis M19.90 [facility] [address] [id number] [address] [place] [id number] Apr, Exercise counseling Z71.82 [facility] [address] [id number] [address] [place] [phone] Apr, Exercise counseling Z71.82 [facility] [address] [id number] [address] [place] [id number] Apr, Primary osteoarthritis of le ft knee M17.12 [facility] [address] [place] [id number] [address] [place] [phone] Apr, Labyrinthitis of left ear H8 3.02 [facility] [address] [place] [id number] [address] [place] [id number] Mar, Arthritis M19.90 [place] [address] [id number] Mar, [place] [address] [place] [id number] [place] [address] Mar, Chronic kidney disease, stag e 4 (severe) N18.4 [place] [address] [place] [id number] [place] [address] Mar, Chronic kidney disease, stag e 4 (severe) N18.4 [place] [address] [address] Mar, Labyrinthitis of left ear H8 3.02 [place] [id number] [place] [id number] [address] [place] [phone] Mar, Chronic kidney disease, stag e 4 (severe) N18.4 ; Knee pain, left anterior M25.562 ; Deficiency of other specified B group vitamins E53.8 and Encounter for immunization Z23 [place] [address] [place] [id number] [address] [place] [address] Mar, Arthritis M19.90 [place] [address] [place] [id number] [address] [place] [id number] Feb, Labyrinthitis of left ear H8 3.02 [place] [address] [place] [id number] [place] [address] Feb, Arthritis M19.90 [place] [address] [place] [id number] [address] [place] [address] Jan, Labyrinthitis of left ear H8 3.02 [place] [address] [place] [id number] [address] [place] [phone] Jan, Arthritis M19.90 [place] [address] [address] Dec, Labyrinthitis of left ear H8 3.02 [place] [address] [address] Nov, Arthritis M19.90 [place] [address] [address] Nov, Labyrinthitis of left ear H8 3.02 [place] [address] [address] Nov, BMI 40.0-44.9, adult Z68.41 ; Chronic kidney disease, stage 4 (severe) N18.4 and Acute right-sided thoracic back pain M54.6 [place] [address] [address] October, Labyrinthitis of left ear H8 3.02 and Arthritis M19.90 [place] [address] [address] Sep, BPV (benign positional verti go), bilateral H81.13 ; Dysfunction of left eustachian tube H69.82 and BMI 40.0-44.9, adult Z68.41 [place] [address] [address] Sep, Labyrinthitis of left ear H8 3.02 and Arthritis M19.90 [place] [address] [address] Sep, [place] [address] [address] Sep, [place] [address] [address] Sep, Chronic kidney disease, stag e 4 (severe) N18.4 [facility] [address] [facility] [id number] [address] [place] [phone] Sep, Chronic kidney disease, stag e 4 (severe) N18.4 [facility] [address] [id number] [address] [place] [address] Aug, Labyrinthitis of left ear H8 3.02 and Arthritis M19.90 [facility] [address] [id number] [address] [place] [phone] Aug, [facility] [address] [id number] [address] [place] [phone] Jul, [facility] [address] [facility] [id number] [address] [place] [phone] Jul, Arthritis M19.90 and Labyrin thitis of left ear H83.02 [facility] [address] [place] [id number] [address] [place] [phone] Jul, [facility] [address] [facility] [id number] [address] [place] [phone] Jun, [facility] [address] [facility] [id number] [address] [place] [address] Jun, Arthritis M19.90 and Labyrin thitis of left ear H83.02 [facility] [address] [facility] [id number] [address] [place] [id number] Jun, Pre-op evaluation Z01.818 ; BMI 40.0-44.9, adult Z68.41 and Encounter for immunization Z23 [facility] [address] [facility] [id number] [address] [place] [address] May, Arthritis M19.90 and Labyrin thitis of left ear H83.02 [facility] [address] [facility] [id number] [address] [place] [address] Apr, Labyrinthitis of left ear H8 3.02 [facility] [address] [id number] [address] [place] [id number] Apr, Arthritis M19.90 and Labyrin thitis of left ear H83.02 [facility] [address] [facility] [id number] [address] [place] [address] 10 Mar, 2017 Arthritis M19.90 and Labyrin thitis of left ear H83.02 [facility] [address] [facility] [id number] [address] [place] [id number] 05 Mar, 2017 Chronic kidney disease, stag e 4 (severe) N18.4 [facility] [address] [facility] [id number] [address] [place] [id number] Feb, Arthritis M19.90 and Labyrin thitis of left ear H83.02 [place] [address] [facility] [id number] [address] [place] [address] Jan, Labyrinthitis of left ear H8 3.02 and Deficiency of other specified B group vitamins E53.8 [place] [address] [facility] [id number] [address] [place] [phone] Dec, Arthritis M19.90 [place] [address] [facility] [id number] [address] [place] [id number] Dec, BPV (benign positional verti go), bilateral H81.13 [place] [address] [facility] [id number] [address] [place] [address] Dec, [facility] [address] [facility] [id number] [address] [place] [phone] Dec, [facility] [address] [id number] [address] [place] [address] Dec, [facility] [address] [facility] [id number] [address] [place] [id number] Nov, Arthritis M19.90 and Deficie ncy of other specified B group vitamins E53.8 [place] [address] [facility] [id number] [address] [place] [phone] Nov, Arthritis M19.90 [facility] [address] [id number] [address] [place] [phone] Nov, Hyperparathyroidism E21.3 [facility] [address] [id number] [address] [place] [phone] October, [facility] [address] [facility] [id number] [address] [place] [phone] October, Hyperparathyroidism E21.3 [facility] [address] [facility] [id number] [address] [place] [phone] October, [facility] [address] [facility] [id number] [address] [place] [address] October, Renal insufficiency N28.9 an d Hyperparathyroidism E21.3 [facility] [address] [facility] [id number] [address] [place] [id number] October, [facility] [address] [facility] [id number] [address] [place] [id number] October, Renal insufficiency N28.9 an d Hyperparathyroidism E21.3 [facility] [address] [facility] [id number] [address] [place] [address] October, Arthritis M19.90 [facility] [address] [facility] [id number] [address] [place] [phone] Sep, [facility] [address] [facility] [id number] [address] [place] [phone] Sep, Lumbar neuritis M54.16 ; Tho racic abscess J86.9 and Deficiency of other specified B group vitamins E53.8 [facility] [address] [facility] [id number] [address] [place] [address] Sep, [facility] [address] [facility] [id number] [address] [place] [address] Aug, Arthritis M19.90 [facility] [address] [facility] [id number] [address] [place] [phone] Aug, Hyperparathyroidism E21.3 [facility] [address] [facility] [id number] [address] [place] [phone] Aug, Hyperparathyroidism E21.3 [facility] [address] [facility] [id number] [address] [place] [phone] Aug, Arthritis M19.90 [facility] [address] [facility] [id number] [address] [place] [phone] Jul, Mass of throat R22.1 [facility] [address] [facility] [id number] [address] [place] [phone] Jul, [facility] [address] [facility] [id number] [address] [place] [address] Jul, Arthritis M19.90 [facility] [address] [facility] [id number] [address] [place] [address] Jun, Arthritis M19.90 [facility] [address] [facility] [id number] [address] [place] [address] Jun, [facility] [address] [facility] [id number] [address] [place] [phone] Jun, Renal insufficiency N28.9 an d 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 [facility] [address] [facility] [id number] [address] [place] [phone] 05 Jun, 2016 Medicare welcome exam Z00.00 ; Encounter for immunization Z23 ; Arthritis M19.90 ; Medicare annual wellness visit, initial Z00.00 ; Medicare annual wellness visit, subsequent Z00.00 and Deficiency of other specified B group vitamins E53.8 [facility] [address] [facility] [id number] [address] [place] [phone] May, Renal insufficiency N28.9 an d 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 [facility] [address] [facility] [id number] [address] [place] [address] May, Renal insufficiency N28.9 [facility] [address] [facility] [id number] [address] [place] [id number] 16 May, 2016 Renal insufficiency N28.9 [facility] [address] [facility] [id number] [address] [place] [phone] 14 May, 2016 [facility] [address] [facility] [id number] [address] [place] [phone] 16 Apr, 2016 [facility] [address] [facility] [id number] [address] [place] [id number] 16 Apr, 2016 [facility] [address] [facility] [id number] [address] [place] [phone] 14 Apr, 2016 Mass of throat R22.1 [facility] [address] [facility] [id number] [address] [place] [phone] 10 Apr, 2016 [facility] [address] [facility] [id number] [address] [place] [phone] Apr, Mass of throat R22.1 [facility] [address] [facility] [id number] [address] [place] [phone] 04 Apr, 2016 Mass of throat R22.1 [facility] [address] [facility] [id number] [address] [place] [phone] Mar, [facility] [address] [facility] [id number] [address] [place] [phone] Mar, [facility] [address] [facility] [id number] [address] [place] [id number] Mar, [facility] [address] [place] [id number] [address] [place] [phone] 24 Mar, 2016 Parathyroid abnormality E21. 5 and Encounter for immunization Z23 [facility] [address] [facility] [id number] [address] [place] [id number] 17 Mar, 2016 [facility] [address] [facility] [id number] [address] [place] [phone] 11 Mar, 2016 [facility] [address] [place] [id number] [address] [place] [address] Feb, Renal insufficiency N28.9 an d Hyperparathyroidism E21.3 [facility] [address] [facility] [id number] [address] [place] [id number] Feb, [facility] [address] [facility] [id number] [address] [place] [id number] 15 Feb, 2016 Renal insufficiency N28.9 an d Hyperparathyroidism E21.3 [place] [address] [facility] [id number] [address] [place] [id number] 14 Feb, 2016 [facility] [address] [facility] [id number] [address] [place] [phone] Feb, [place] [address] [address] Feb, [place] [address] [address] Jan, [place] [address] [address] Jan, Arthritis M19.90 ; Lumbago w ith sciatica, right side M54.41 and Other chronic pain G89.29 [place] [address] [address] Jan, [place] [address] [address] Dec, Arthritis M19.90 ; Lumbago w ith sciatica, right side M54.41 and Other chronic pain G89.29 [place] [id number] [place] [address] 16 Nov, 2015 Deficiency of other specifie d B group vitamins E53.8 ; Primary insomnia F51.01 ; Mood disorder F39 and Lumbago with sciatica, right side M54.41 [place] [address] [facility] [id number] [address] [place] [phone] Nov, Hyperparathyroidism E21.3 [place] [address] [place] [id number] [address] [place] [phone] Nov, Unspecified kidney failure N 19 and Hyperparathyroidism E21.3 [facility] [address] [address] October, Hyperparathyroidism E21.3 [facility] [address] [address] October, [facility] [address] [address] October, Hyperparathyroidism E21.3 [facility] [address] [address] October, Hyperparathyroidism E21.3 [facility] [address] [address] Sep, Hyperparathyroidism E21.3 ; Hypercholesterolemia E78.0 and Arthritis M19.90 [facility] [address] [address] Aug, [facility] [address] [address] Aug, Deficiency of other specifie d B group vitamins E53.8 [facility] [address] [address] Aug, [facility] [address] [address] Jul, Urinary frequency R35.0 [facility] [address] [id number] Jul, Urinary frequency R35.0 [facility] [address] [address] Jul, [facility] [address] [address] Jul, [facility] [address] [id number] Jun, Pain in left knee M25.562 [facility] [address] [id number] [address] [place] [id number] Jun, [facility] [address] [id number] [address] [place] [id number] May, Swelling of left knee joint M25.462 [facility] [address] [id number] [address] [place] [id number] May, [facility] [address] [id number] [address] [place] [id number] May, [facility] [address] [id number] [address] [place] [id number] May, [facility] [address] [facility] [id number] [address] [place] [id number] Apr, Renal insufficiency N28.9 an d Chronic kidney disease, stage 4 (severe) N18.4 [facility] [address] [facility] [id number] [address] [place] [id number] Apr, Unspecified kidney failure N 19 [facility] [address] [facility] [id number] [address] [place] [id number] Apr, Unspecified kidney failure N 19 [facility] [address] [facility] [id number] [address] [place] [id number] Apr, [facility] [address] [facility] [id number] [address] [place] [id number] Apr, Hyperparathyroidism, unspeci fied 252.00 [facility] [address] [facility] [id number] [address] [place] [id number] Apr, [facility] [address] [facility] [id number] [address] [place] [phone] Mar, [facility] [address] [facility] [id number] [address] [place] [phone] Mar, [facility] [address] [facility] [id number] [address] [place] [id number] Mar, Hyperparathyroidism, unspeci fied 252.00 [facility] [address] [id number] [address] [place] [phone] Feb, [facility] [address] [facility] [id number] [address] [place] [id number] Feb, Otalgia 388.70 [facility] [address] [facility] [id number] [address] [place] [phone] Feb, [facility] [address] [id number] [address] [place] [id number] Feb, [facility] [address] [facility] [facility] [id number] [address] [place] [id number] Jan, [facility] [address] [facility] [id number] [address] [place] [id number] Jan, Hyperparathyroidism, unspeci fied 252.00 [facility] [address] [facility] [id number] [address] [place] [id number] Jan, [facility] [address] [facility] [id number] [address] [place] [id number] Jan, Other B-complex deficiencies 266.2 and Hyperparathyroidism, unspecified 252.00 [facility] [address] [facility] [id number] [address] [place] [id number] Jan, [facility] [address] [facility] [id number] [address] [place] [id number] Jan, [facility] [address] [facility] [id number] [address] [place] [id number] Jan, [facility] [address] [facility] [id number] [address] [place] [id number] Dec, [facility] [address] [facility] [id number] [address] [place] [id number] Dec, [facility] [address] [facility] [id number] [address] [place] [id number] Dec, [facility] [address] [id number] [address] [place] [id number] 15 Nov, 2014 Routine check-up V70.0 and P re-op exam V72.84 [facility] [address] [id number] [address] [place] [id number] 12 Nov, 2014 [facility] [address] [id number] [address] [place] [phone] Nov, [facility] [address] [id number] [address] [place] [id number] October, [facility] [address] [id number] [address] [place] [id number] October, Other B-complex deficiencies 266.2 [facility] [address] [id number] [address] [place] [id number] October, [facility] [address] [id number] [address] [place] [id number] 14 Sep, 2014 [facility] [address] [id number] [address] [place] [id number] Sep, [facility] [address] [id number] [address] [place] [id number] 20 Aug, 2014 [facility] [address] [id number] [address] [place] [id number] 20 Aug, 2014 [facility] [address] [id number] [address] [place] [id number] 17 Aug, 2014 [facility] [address] [id number] [address] [place] [id number] 17 Aug, 2014 [facility] [address] [id number] [address] [place] [phone] Aug, [facility] [address] [id number] [address] [place] [id number] Aug, [facility] [address] [id number] [address] [place] [id number] 18 Jul, 2014 [facility] [address] [id number] [address] [place] [address], [place] [address] Jul, 2014 [facility] [address] [id number] [address] [place] [address], [place] [address] Jul, 2014 [facility] [address] [id number] [address] [place] [address], [place] [address] Jul, 2014 [facility] [address] [id number] [address] [place] [address], [place] [address] Jul, 2014 [facility] [address] [id number] [address] [place] [address], [place] [address] Jul, 2014 [facility] [address] [id number] [address] [place] [address], [place] [address] Jul, 2014 [facility] [address] [id number] [address] [place] [address], [place] [address] Jul, 2014 [facility] [address] [id number] [address] [place] [address], [place] [address] Jul, 2014 [facility] [address] [id number] [address] [place] [address], [place] [address] Jul, 2014 [facility] [address] [id number] [address] [place] [address], [place] [address] Jul, 2014 [facility] [address] [id number] [address] [place] [address], [place] [address] Jul, 2014 [facility] [address] [id number] [address] [place] [address], [place] [address] Jul, 2014 [facility] [address] [id number] [address] [place] [address], [place] [address] Jul, 2014 [facility] [address] [id number] [address] [place] [address], [place] [address] Jun, [facility] [address] [id number] [address] [place] [address], [place] [address] Jun, [facility] [address] [id number] [address] [place] [address], [place] [address] Jun, [facility] [address] [id number] [address] [place] [address], [place] [address] Jun, [facility] [address] [id number] [address] [place] [address], [place] [address] Jun, [facility] [address] [id number] [address] [place] [address], [place] [address] Jun, [facility] [address] [id number] [address] [place] [address], [place] [address] Jun, [facility] [address] [id number] [address] [place] [address], [place] [address] Jun, [facility] [address] [id number] [address] [place] [address], [place] [address] Jun, [facility] [address] [id number] [address] [place] [address], [place] [address] Jun, [facility] [address] [id number] [address] [place] [address], [place] [address] Jun, [facility] [address] [id number] [address] [place] [address], [place] [address] Jun, [facility] [address] [id number] [address] [place] [address], [place] [address] Jun, [facility] [address] [id number] [address] [place] [address], [place] [address] Jun, [facility] [address] [id number] [address] [place] [address], [place] [address] May, [facility] [address] [id number] [address] [place] [address], [place] [address] May, [facility] [address] [id number] [address] [place] [address], [place] [address] May, [facility] [address] [id number] [address] [address] May, [facility] [address] [id number] [address] [place] [address], [place] [address] Apr, [facility] [address] [id number] [address] [place] [address], [place] [address] Apr, [facility] [address] [id number] [address] [place] [address], [place] [address] Apr, [facility] [address] [id number] [address] [place] [id number] Apr, [facility] [address] [id number] [address] [place] [address], [place] [address] Apr, [facility] [address] [id number] [address] [place] [id number] Apr, [facility] [address] [id number] [address] [place] [address], [place] [address] Mar, [facility] [address] [id number] [address] [place] [address], [place] [address] Mar, [facility] [address] [id number] [address] [place] [address], [place] [address] Mar, [facility] [address] [id number] [address] [place] [address], [place] [address] Mar, [facility] [address] [id number] [address] [place] [id number] 15 Mar, 2014 [facility] [address] [id number] [address] [place] [id number] 15 Mar, 2014 [facility] [address] [id number] [address] [place] [address], [place] [address] Mar, [facility] [address] [id number] [address] [place] [address], [place] [address] Mar, [facility] [address] [id number] [address] [place] [id number] Mar, [facility] [address] [id number] [address] [place] [address], [place] [address] 07 Mar, 2014 [facility] [address] [id number] [address] [place] [address], [place] [address] 07 Mar, 2014 [facility] [address] [id number] [address] [place] [address], [place] [address] 07 Mar, 2014 [facility] [address] [id number] [address] [place] [address], [place] [address] 06 Mar, 2014 [facility] [address] [id number] [address] [place] [address], [place] [address] 26 Feb, 2013 [facility] [address] [id number] [address] [place] [address], [place] [address] 26 Feb, 2014 [facility] [address] [id number] [address] [place] [address], [place] [address] 23 Feb, 2013 [facility] [address] [id number] [address] [place] [address], [place] [address] 23 Feb, 2013 [facility] [address] [id number] [address] [place] [address], [place] [address] 19 Feb, 2014 [facility] [address] [id number] [address] [place] [address], [place] [address] 19 Feb, 2014 [facility] [address] [id number] [address] [place] [address], [place] [address] 13 Feb, 2014 [facility] [address] [id number] [address] [place] [address], [place] [address] 13 Feb, 2014 [facility] [address] [id number] [address] [place] [address], [place] [address] 12 Feb, 2014 [facility] [address] [id number] [address] [place] [address], [place] [address] 12 Feb, 2014 [facility] [address] [id number] [address] [place] [address], [place] [address] 15 Jan, 2014 [facility] [address] [id number] [address] [place] [address], [place] [address] Jan, [facility] [address] [id number] [facility] [place] [address] Dec, [facility] [address] [id number] [address] [place] [address], [place] [address] Dec, [facility] [address] [id number] [address] [place] [address], [place] [address] Dec, [facility] [address] [id number] [address] [place] [address], [place] [address] Dec, [facility] [address] [id number] [address] [place] [address], [place] [address] Dec, [facility] [address] [id number] [address] [place] [address], [place] [address] Dec, [facility] [address] [id number] [address] [place] [address], [place] [address] Nov, [facility] [address] [id number] [address] [place] [address], [place] [address] Nov, [facility] [address] [id number] [address] [place] [address], [place] [address] Nov, [facility] [address] [id number] [address] [place] [address], [place] [address] Nov, [facility] [address] [id number] [address] [place] [address], [place] [address] October, [facility] [address] [id number] [address] [place] [address], [place] [address] October, [facility] [address] [id number] [address] [place] [address], [place] [address] October, [facility] [address] [id number] [address] [place] [address], [place] [address] October, [facility] [address] [id number] [address] [place] [address], [place] [address] October, [facility] [address] [id number] [address] [place] [address], [place] [address] October, [facility] [address] [id number] [address] [place] [address], [place] [address] October, [facility] [address] [id number] [address] [place] [address], [place] [address] October, [facility] [address] [id number] [address] [place] [address], [place] [address] October, [facility] [address] [id number] [address] [place] [address], [place] [address] October, [facility] [address] [id number] [address] [place] [address], [place] [address] October, [facility] [address] [id number] [address] [place] [address], [place] [address] October, [facility] [address] [id number] [address] [place] [address], [place] [address] October, [facility] [address] [id number] [address] [place] [address], [place] [address] October, [facility] [address] [id number] [address] [place] [address], [place] [address] October, [facility] [address] [id number] [address] [place] [address], [place] [address] October, [facility] [address] [id number] [address] [place] [address], [place] [address] Sep, [facility] [address] [id number] [address] [place] [address], [place] [address] Sep, [facility] [address] [id number] [address] [place] [address], [place] [address] Sep, [facility] [address] [id number] [address] [place] [address], [place] [address] Sep, [facility] [address] [id number] [address] [place] [address], [place] [address] Sep, [facility] [address] [id number] [address] [place] [address], [place] [address] Sep, [facility] [address] [id number] [address] [place] [address], [place] [address] Aug, [facility] [address] [id number] [address] [place] [address], [place] [address] Aug, [facility] [address] [id number] [address] [place] [address], [place] [address] Aug, [facility] [address] [id number] [address] [place] [address], [place] [address] Aug, [facility] [address] [id number] [address] [place] [address], [place] [address] Aug, [facility] [address] [id number] [address] [place] [address], [place] [address] Aug, [facility] [address] [id number] [address] [place] [address], [place] [address] Jul, [facility] [address] [id number] [address] [place] [address], [place] [address] Jul, [facility] [address] [id number] [address] [place] [address], [place] [address] Jul, [facility] [address] [id number] [address] [place] [address], [place] [address] Jul, [facility] [address] [id number] [address] [place] [address], [place] [address] Jun, [facility] [address] [id number] [address] [place] [address], [place] [address] Jun, [facility] [address] [id number] [address] [place] [address], [place] [address] May, [facility] [address] [id number] [address] [place] [address], [place] [address] May, [facility] [address] [id number] [address] [address] 10 May, 2013 [facility] [address] [id number] [address] [place] [address], [place] [address] May, [facility] [address] [id number] [address] [place] [id number] May, [facility] [address] [id number] [address] [place] [id number] Apr, [facility] [address] [id number] [address] [place] [id number] Apr, [facility] [address] [id number] [address] [place] [address], [place] [address] Apr, [facility] [address] [id number] [address] [place] [id number] Apr, [facility] [address] [id number] [address] [place] [id number] Apr, [facility] [address] [id number] [address] [place] [id number] Apr, [facility] [address] [id number] [address] [place] [id number] 15 Mar, 2013 [facility] [address] [id number] [address] [place] [id number] 15 Mar, 2013 [facility] [address] [id number] [address] [place] [id number] 14 Mar, 2013 [facility] [address] [id number] [address] [place] [id number] 14 Mar, 2013 [facility] [address] [id number] [address] [place] [id number] 11 Mar, 2013 [facility] [address] [id number] [address] [place] [id number] 11 Mar, 2013 [facility] [address] [id number] [address] [place] [id number] 23 Feb, 2013 [facility] [address] [id number] [address] [place] [address], [place] [address] Feb, [facility] [address] [id number] [address] [place] [address], [place] [address] Feb, [facility] [address] [id number] [address] [place] [address], [place] [address] Jan, [facility] [address] [id number] [address] [place] [address], [place] [address] Jan, [facility] [address] [id number] [address] [place] [address], [place] [address] Jan, [facility] [address] [id number] [address] [place] [address], [place] [address] Jan, [facility] [address] [id number] [address] [place] [address], [place] [address] Jan, [facility] [address] [id number] [address] [place] [address], [place] [address] Jan, [facility] [address] [id number] [address] [place] [address], [place] [address] Dec, [facility] [address] [id number] [address] [place] [address], [place] [id number] Dec, [facility] [address] [id number] [address] [place] [address], [place] [id number] Dec, [facility] [address] [id number] [address] [place] [address], [place] [address] Dec, [facility] [address] [id number] [address] [place] [address], [place] [id number] Dec, [facility] [address] [id number] [address] [place] [address], [place] [id number] Dec, [facility] [address] [id number] [address] [place] [address], [place] [address] Nov, [facility] [address] [id number] [address] [place] [address], [place] [id number] Nov, [facility] [address] [id number] [address] [place] [address], [place] [id number] 18 Nov, 2012 [facility] [address] [id number] [address] [place] [address], [place] [address] Nov, [facility] [address] [id number] [address] [place] [address], [place] [address] Nov, [facility] [address] [id number] [address] [place] [address], [place] [id number] Nov, [facility] [address] [id number] [address] [place] [address], [place] [id number] October, [facility] [address] [id number] [address] [place] [address], [place] [address] October, [facility] [address] [id number] [address] [place] [address], [place] [id number] October, [facility] [address] [id number] [address] [place] [address], [place] [id number] October, [facility] [address] [id number] [address] [place] [address], [place] [id number] October, [facility] [address] [id number] [address] [place] [address], [place] [address] Sep, [facility] [address] [id number] [address] [place] [address], [place] [id number] Sep, [facility] [address] [id number] [address] [place] [address], [place] [id number] Sep, [facility] [address] [id number] [address] [place] [address], [place] [id number] Sep, [facility] [address] [id number] [address] [place] [address], [place] [id number] Sep, [facility] [address] [id number] [address] [place] [address], [place] [id number] Aug, [facility] [address] [id number] [address] [place] [address], [place] [id number] 07 Aug, 2012 [facility] [address] [id number] [address] [place] [address], [place] [id number] 04 Aug, 2012 [facility] [address] [id number] [address] [place] [address], [place] [id number] 21 Jul, 2012 [facility] [address] [id number] [address] [place] [address], [place] [id number] 20 Jul, 2012 [facility] [address] [id number] [address] [place] [address], [place] [id number] 11 Jul, 2012 [facility] [address] [id number] [address] [place] [address], [place] [id number] 08 Jul, 2012 [facility] [address] [id number] [address] [place] [address], [place] [id number] 06 Jul, 2012 [facility] [address] [id number] [address] [place] [address], [place] [id number] 05 Jul, 2012 [facility] [address] [id number] [address] [place] [address], [place] [id number] 15 Jun, 2012 [facility] [address] [id number] [address] [place] [address], [place] [id number] 16 Apr, 2012 [facility] [address] [id number] [address] [place] [address], [place] [id number] 16 Apr, 2012 [facility] [address] [id number] [address] [place] [address], [place] [id number] Apr, [facility] [address] [id number] [address] [place] [address], [place] [id number] Apr, [facility] [address] [id number] [address] [place] [address], [place] [id number] Mar, [facility] [address] [id number] [address] [place] [address], [place] [id number] Mar, [facility] [address] [id number] [address] [place] [address], [place] [address] Mar, [facility] [address] [id number] [address] [place] [address], [place] [id number] Mar, [facility] [address] [id number] [address] [place] [address], [place] [address] Mar, [facility] [address] [id number] [address] [place] [address], [place] [id number] Feb, [facility] [address] [id number] [address] [place] [address], [place] [id number] Jan, [facility] [address] [id number] [address] [place] [address], [place] [id number] Jan, [facility] [address] [id number] [address] [place] [address], [place] [id number] Jan, [facility] [address] [id number] [address] [place] [address], [place] [id number] Dec, [facility] [address] [id number] [address] [place] [address], [place] [id number] Nov, [facility] [address] [id number] [address] [place] [address], [place] [id number] Nov, [facility] [address] [id number] [address] [place] [address], [place] [id number] Nov, [facility] [address] [id number] [address] [place] [address], [place] [id number] Nov, [facility] [address] [id number] [address] [place] [address], [place] [id number] Nov, [facility] [address] [id number] [address] [place] [address], [place] [id number] October, [facility] [address] [id number] [address] [place] [address], [place] [id number] October, [facility] [address] [id number] [address] [place] [address], [place] [id number] October, [facility] [address] [id number] [address] [address] October, [facility] [address] [facility] [id number] [address] [address] October, IMMUNIZATIONS No Known Immunizations SOCIAL HISTORY Never Assessed REASON FOR VISIT PLAN OF CARE VITAL SIGNS MEDICATIONS Unknown Medications RESULTS No Results PROCEDURES Procedure Date Ordered Result Body Site ASSAY OF PARATHORMONE Aug 07, 2014 VENIPUNCT, ROUTINE* Aug 07, 2014 INSTRUCTIONS MEDICATIONS ADMINISTERED No Known Medications [...]
--- OUTSIDE RECORDS SUMMARY | 2020-01-25 07:54 | XMS REPORT ---
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 Active 90726905 Problem 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 Active 00285279 Problem Body mass index (BMI) of 40.0-44.9 in adult Z68.41 Active 500172477 Problem Mood disorder F39 Active 313141 05 Problem Unspecified kidney failure N19 Act chip 30054161 Problem Arthritis M19.90 Active 7510307 Problem BPV (benign positional vertigo), bilateral H81.13 Active 540529110 Problem Chronic kidney disease, stage 4 (severe) N18.4 Active 219699784 Problem Primary osteoarthritis of left knee M17.12 Active [id number] Problem Irritable bowel syndrome with both constipation and diarrh ea K58.2 Active 90969746 ALLERGIES No Information ENCOUNTERS Encounter Location Date Diagnosis [facility] [address] [id number] [address] [place] [id number] Sep, Arthritis M19.90 [facility] [address] [id number] [address] [place] [id number] Sep, Renal insufficiency N28.9 an d Unspecified kidney failure N19 [facility] [address] [id number] [address] [place] [id number] Sep, Renal insufficiency N28.9 an d Unspecified kidney failure N19 [facility] [address] [id number] [address] [place] [id number] 08 Sep, 2018 Arthritis M19.90 [facility] [address] [id number] [address] [place] [id number] Aug, Exercise counseling Z71.82 [facility] [address] [id number] [address] [place] [id number] Aug, [facility] [address] [id number] [address] [place] [id number] 27 Jul, 2018 Labyrinthitis of left ear H8 3.02 [place] [address] [id number] [address] [place] [id number] 22 Jul, 2018 Labyrinthitis of left ear H8 3.02 [facility] [address] [id number] [address] [place] [id number] 19 Jul, 2018 Exercise counseling Z71.82 [facility] [address] [id number] [address] [place] [id number] 18 Jul, 2018 [facility] [address] [id number] [address] [place] [id number] 14 Jul, 2018 Arthritis M19.90 [facility] [address] [id number] [address] [place] [id number] 13 Jul, 2018 Encounter for Medicare annua l wellness exam Z00.00 ; Chronic kidney disease, stage 4 (severe) N18.4 ; Body mass index (BMI) of 40.0-44.9 in adult Z68.41 ; Hyperparathyroidism E21.3 and BMI 40.0-44.9, adult Z68.41 [place] [address] [id number] [address] [place] [id number] 13 Jul, 2018 Encounter for Medicare annua l wellness exam Z00.00 ; Chronic kidney disease, stage 4 (severe) N18.4 ; Hyperparathyroidism E21.3 ; Body mass index (BMI) of 40.0-44.9 in adult Z68.41 and Encounter for immunization Z23 [place] [address] [id number] [address] [place] [id number] Jul, Tail bone pain M53.3 [facility] [address] [id number] [address] [place] [phone] Jun, Exercise counseling Z71.82 [facility] [address] [id number] [address] [place] [id number] Jun, Labyrinthitis of left ear H8 3.02 [facility] [address] [id number] [address] [place] [id number] Jun, Tail bone pain M53.3 ; Irrit able bowel syndrome with both constipation and diarrhea K58.2 and Dysfunction of left eustachian tube H69.82 [facility] [address] [id number] [address] [place] [id number] Jun, Exercise counseling Z71.82 [facility] [address] [id number] [address] [place] [id number] Jun, Arthritis M19.90 [facility] [address] [id number] [address] [place] [id number] Jun, Irritable bowel syndrome wit h both constipation and diarrhea K58.2 ; Tail bone pain M53.3 and Dysfunction of left eustachian tube H69.82 [facility] [address] [id number] [address] [place] [id number] Jun, Exercise counseling Z71.82 [facility] [address] [id number] [address] [place] [id number] Jun, Exercise counseling Z71.82 [facility] [address] [id number] [address] [place] [id number] Jun, Labyrinthitis of left ear H8 3.02 [facility] [address] [id number] [address] [place] [id number] May, Exercise counseling Z71.82 [facility] [address] [id number] [address] [place] [id number] May, Arthritis M19.90 [facility] [address] [id number] [address] [place] [id number] May, Exercise counseling Z71.82 [facility] [address] [id number] [address] [place] [id number] May, Exercise counseling Z71.82 [facility] [address] [id number] [address] [place] [id number] May, Labyrinthitis of left ear H8 3.02 [facility] [address] [id number] [address] [place] [id number] 03 May, 2018 Exercise counseling Z71.82 [facility] [address] [id number] [address] [place] [id number] Apr, Arthritis M19.90 [facility] [address] [id number] [address] [place] [id number] Apr, Exercise counseling Z71.82 [facility] [address] [id number] [address] [place] [id number] Apr, Exercise counseling Z71.82 [facility] [address] [id number] [address] [place] [id number] 08 Apr, 2018 Primary osteoarthritis of le ft knee M17.12 [facility] [address] [id number] [address] [place] [id number] 08 Apr, 2018 Labyrinthitis of left ear H8 3.02 [facility] [address] [id number] [address] [place] [id number] Mar, Arthritis M19.90 [facility] [address] [id number] [address] [place] [phone] Mar, [facility] [address] [id number] [address] [place] [id number] Mar, Chronic kidney disease, stag e 4 (severe) N18.4 [place] [address] [facility] [id number] [address] [place] [id number] 15 Mar, 2018 Chronic kidney disease, stag e 4 (severe) N18.4 [facility] [address] [id number] [address] [place] [id number] 09 Mar, 2018 Labyrinthitis of left ear H8 3.02 [facility] [address] [place] [id number] [address] [place] [id number] Mar, Chronic kidney disease, stag e 4 (severe) N18.4 ; Knee pain, left anterior M25.562 ; Deficiency of other specified B group vitamins E53.8 and Encounter for immunization Z23 [place] [address] [facility] [id number] [address] [place] [id number] Mar, Arthritis M19.90 [facility] [address] [place] [id number] [address] [place] [id number] Feb, Labyrinthitis of left ear H8 3.02 [facility] [address] [id number] [address] [place] [id number] Feb, Arthritis M19.90 [facility] [address] [place] [id number] [address] [place] [id number] Jan, Labyrinthitis of left ear H8 3.02 [facility] [address] [place] [id number] [address] [place] [id number] Jan, Arthritis M19.90 [facility] [address] [id number] [address] [place] [id number] Dec, Labyrinthitis of left ear H8 3.02 [facility] [address] [id number] [address] [place] [id number] Nov, Arthritis M19.90 [facility] [address] [id number] [address] [place] [id number] Nov, Labyrinthitis of left ear H8 3.02 [facility] [address] [place] [id number] [place] [id number] Nov, BMI 40.0-44.9, adult Z68.41 ; Chronic kidney disease, stage 4 (severe) N18.4 and Acute right-sided thoracic back pain M54.6 [facility] [address] [place] [id number] [place] [id number] October, Labyrinthitis of left ear H8 3.02 and Arthritis M19.90 [facility] [address] [place] [id number] [place] [id number] Sep, BPV (benign positional verti go), bilateral H81.13 ; Dysfunction of left eustachian tube H69.82 and BMI 40.0-44.9, adult Z68.41 [facility] [address] [place] [id number] [place] [id number] Sep, Labyrinthitis of left ear H8 3.02 and Arthritis M19.90 [facility] [address] [id number] Sep, [facility] [address] [id number] Sep, [facility] [address] [id number] Sep, Chronic kidney disease, stag e 4 (severe) N18.4 [facility] [address] [place] [id number] [place] [id number] Sep, Chronic kidney disease, stag e 4 (severe) N18.4 [facility] [address] [place] [id number] [address] [place] [id number] Aug, Labyrinthitis of left ear H8 3.02 and Arthritis M19.90 [facility] [address] [place] [id number] [address] [place] [id number] Aug, [facility] [address] [place] [id number] [address] [place] [id number] Jul, [place] [address] [place] [id number] [address] [place] [id number] Jul, Arthritis M19.90 and Labyrin thitis of left ear H83.02 [facility] [address] [place] [id number] [address] [place] [id number] Jul, [place] [address] [id number] Jun, [place] [address] [id number] Jun, Arthritis M19.90 and Labyrin thitis of left ear H83.02 [place] [address] [place] [id number] [place] [phone] Jun, Pre-op evaluation Z01.818 ; BMI 40.0-44.9, adult Z68.41 and Encounter for immunization Z23 [place] [address] [place] [id number] [address] [place] [id number] May, Arthritis M19.90 and Labyrin thitis of left ear H83.02 [place] [address] [id number] Apr, Labyrinthitis of left ear H8 3.02 [place] [address] [id number] Apr, Arthritis M19.90 and Labyrin thitis of left ear H83.02 [place] [address] [place] [id number] [address] [place] [id number] Mar, Arthritis M19.90 and Labyrin thitis of left ear H83.02 [place] [address] [place] [id number] [place] [id number] Mar, Chronic kidney disease, stag e 4 (severe) N18.4 [place] [address] [place] [id number] [place] [id number] Feb, Arthritis M19.90 and Labyrin thitis of left ear H83.02 [facility] [address] [id number] [address] [place] [id number] Jan, Labyrinthitis of left ear H8 3.02 and Deficiency of other specified B group vitamins E53.8 [facility] [address] [id number] [address] [place] [id number] Dec, Arthritis M19.90 [facility] [address] [id number] [address] [place] [id number] Dec, BPV (benign positional verti go), bilateral H81.13 [facility] [address] [facility] [facility] [id number] [address] [place] [id number] Dec, [facility] [address] [id number] [address] [place] [id number] Dec, [facility] [address] [id number] [address] [place] [id number] Dec, [facility] [address] [id number] [address] [place] [id number] Nov, Arthritis M19.90 and Deficie ncy of other specified B group vitamins E53.8 [facility] [address] [id number] [address] [place] [id number] Nov, Arthritis M19.90 [facility] [address] [id number] [address] [place] [id number] Nov, Hyperparathyroidism E21.3 [facility] [address] [id number] [address] [place] [id number] October, [facility] [address] [id number] [address] [place] [id number] October, Hyperparathyroidism E21.3 [facility] [address] [id number] [address] [place] [id number] October, [facility] [address] [id number] [address] [place] [id number] October, Renal insufficiency N28.9 an d Hyperparathyroidism E21.3 [facility] [address] [id number] [address] [place] [id number] October, [facility] [address] [id number] [address] [place] [id number] October, Renal insufficiency N28.9 an d Hyperparathyroidism E21.3 [facility] [address] [id number] [address] [place] [id number] October, Arthritis M19.90 [facility] [address] [id number] [address] [place] [id number] Sep, [facility] [address] [place] [id number] [place] [id number] Sep, Lumbar neuritis M54.16 ; Tho racic abscess J86.9 and Deficiency of other specified B group vitamins E53.8 [facility] [address] [id number] [address] [place] [id number] Sep, [facility] [address] [id number] [address] [place] [id number] Aug, Arthritis M19.90 [facility] [address] [id number] [address] [place] [id number] Aug, Hyperparathyroidism E21.3 [facility] [address] [id number] [address] [place] [id number] Aug, Hyperparathyroidism E21.3 [facility] [address] [id number] [address] [place] [id number] Aug, Arthritis M19.90 [facility] [address] [place] [id number] [address] [place] [id number] Jul, Mass of throat R22.1 [facility] [address] [id number] [address] [place] [id number] Jul, [facility] [address] [place] [id number] [place] [address] 10 Jul, 2016 Arthritis M19.90 [facility] [address] [id number] [address] [place] [id number] Jun, Arthritis M19.90 [facility] [address] [id number] [address] [place] [id number] Jun, [facility] [address] [place] [id number] [address] [place] [id number] Jun, Renal insufficiency N28.9 an d 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 [facility] [address] [id number] [address] [place] [id number] 05 Jun, 2016 Medicare welcome exam Z00.00 ; Encounter for immunization Z23 ; Arthritis M19.90 ; Medicare annual wellness visit, initial Z00.00 ; Medicare annual wellness visit, subsequent Z00.00 and Deficiency of other specified B group vitamins E53.8 [facility] [address] [facility] [id number] [address] [place] [id number] 29 May, 2016 Renal insufficiency N28.9 an d 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 [facility] [address] [id number] [address] [place] [id number] 19 May, 2016 Renal insufficiency N28.9 [facility] [address] [place] [id number] [address] [place] [id number] 16 May, 2016 Renal insufficiency N28.9 [facility] [address] [id number] [address] [place] [id number] 14 May, 2016 [facility] [address] [place] [id number] [address] [place] [id number] 16 Apr, 2016 [facility] [address] [id number] Apr, [facility] [address] [place] [id number] [address] [place] [id number] 14 Apr, 2016 Mass of throat R22.1 [facility] [address] [place] [id number] [place] [address] [place] [address] 10 Apr, 2016 [facility] [address] [id number] [address] [place] [id number] 10 Apr, 2016 Mass of throat R22.1 [facility] [address] [id number] [address] [place] [id number] 04 Apr, 2016 Mass of throat R22.1 [facility] [address] [id number] [address] [place] [id number] Mar, [facility] [address] [id number] [address] [place] [id number] Mar, [facility] [address] [id number] [address] [place] [phone] Mar, [facility] [address] [id number] [address] [place] [id number] 24 Mar, 2016 Parathyroid abnormality E21. 5 and Encounter for immunization Z23 [facility] [address] [id number] [address] [place] [id number] 17 Mar, 2016 [facility] [address] [id number] [address] [place] [id number] 11 Mar, 2016 [facility] [address] [id number] [address] [place] [id number] 21 Feb, 2016 Renal insufficiency N28.9 an d Hyperparathyroidism E21.3 [facility] [address] [id number] [address] [place] [id number] 19 Feb, 2016 [facility] [address] [id number] [address] [place] [id number] 15 Feb, 2016 Renal insufficiency N28.9 an d Hyperparathyroidism E21.3 [facility] [address] [id number] [address] [place] [id number] 14 Feb, 2016 [facility] [address] [id number] [address] [place] [id number] 12 Feb, 2016 [facility] [address] [id number] [address] [place] [id number] Feb, [facility] [address] [id number] [address] [place] [id number] Jan, [facility] [address] [id number] [address] [place] [id number] Jan, Arthritis M19.90 ; Lumbago w ith sciatica, right side M54.41 and Other chronic pain G89.29 [facility] [address] [id number] [address] [place] [id number] Jan, [facility] [address] [id number] [address] [place] [id number] Dec, Arthritis M19.90 ; Lumbago w ith sciatica, right side M54.41 and Other chronic pain G89.29 [place] [address] [facility] [id number] [address] [place] [id number] Nov, Deficiency of other specifie d B group vitamins E53.8 ; Primary insomnia F51.01 ; Mood disorder F39 and Lumbago with sciatica, right side M54.41 [facility] [address] [id number] [address] [place] [id number] Nov, Hyperparathyroidism E21.3 [place] [address] [facility] [id number] [address] [place] [id number] Nov, Unspecified kidney failure N 19 and Hyperparathyroidism E21.3 [place] [address] [facility] [id number] [address] [place] [id number] October, Hyperparathyroidism E21.3 [facility] [address] [facility] [id number] [address] [place] [phone] October, [facility] [address] [place] [id number] [address] [place] [id number] October, Hyperparathyroidism E21.3 [facility] [address] [place] [id number] [address] [place] [id number] October, Hyperparathyroidism E21.3 [place] [address] [place] [id number] [address] [place] [id number] 08 Sep, 2015 Hyperparathyroidism E21.3 ; Hypercholesterolemia E78.0 and Arthritis M19.90 [facility] [address] [facility] [id number] [address] [place] [id number] Aug, [facility] [address] [place] [id number] [place] [id number] Aug, Deficiency of other specifie d B group vitamins E53.8 [facility] [address] [facility] [id number] [address] [place] [id number] Aug, [facility] [address] [id number] Jul, Urinary frequency R35.0 [facility] [address] [address] Jul, Urinary frequency R35.0 [facility] [address] [id number] [address] [place] [id number] Jul, [facility] [address] [id number] [address] [place] [id number] Jul, [facility] [address] [id number] [address] [place] [id number] Jun, Pain in left knee M25.562 [facility] [id number] [place] [id number] Jun, [facility] [address] [id number] [address] [place] [id number] May, Swelling of left knee joint M25.462 [facility] [address] [id number] [address] [place] [id number] May, [facility] [address] [id number] [address] [place] [id number] May, [facility] [address] [id number] [address] [place] [id number] May, [facility] [address] [id number] [address] [place] [id number] Apr, Renal insufficiency N28.9 an d Chronic kidney disease, stage 4 (severe) N18.4 [facility] [address] [facility] [id number] [address] [place] [id number] Apr, Unspecified kidney failure N 19 [facility] [address] [id number] [address] [place] [id number] Apr, Unspecified kidney failure N 19 [facility] [address] [id number] [address] [place] [id number] Apr, [facility] [address] [id number] [address] [place] [id number] Apr, Hyperparathyroidism, unspeci fied 252.00 [facility] [address] [facility] [id number] [address] [place] [id number] Apr, [facility] [address] [facility] [id number] [address] [place] [id number] Mar, [facility] [address] [id number] [address] [place] [id number] Mar, [facility] [address] [facility] [address] [id number] [address] [place] [id number] Mar, Hyperparathyroidism, unspeci fied 252.00 [facility] [address] [facility] [id number] [address] [place] [id number] Feb, [facility] [address] [facility] [id number] [address] [place] [id number] Feb, Otalgia 388.70 [facility] [address] [facility] [id number] [address] [place] [id number] Feb, [facility] [address] [facility] [id number] [address] [place] [id number] Feb, [facility] [address] [facility] [facility] [id number] [address] [place] [id number] Jan, [facility] [address] [id number] [address] [place] [id number] Jan, Hyperparathyroidism, unspeci fied 252.00 [facility] [address] [id number] [address] [place] [id number] Jan, [facility] [address] [id number] [address] [place] [id number] Jan, Other B-complex deficiencies 266.2 and Hyperparathyroidism, unspecified 252.00 [facility] [address] [id number] [address] [place] [id number] Jan, [facility] [address] [id number] [address] [place] [id number] Jan, [facility] [address] [id number] [address] [place] [id number] Jan, [facility] [address] [id number] [address] [place] [id number] Dec, [facility] [address] [id number] [address] [place] [phone] Dec, [facility] [address] [id number] [address] [place] [id number] Dec, [facility] [address] [id number] [address] [place] [phone] Nov, Routine check-up V70.0 and P re-op exam V72.84 [facility] [address] [id number] [address] [place] [id number] Nov, [facility] [address] [id number] [address] [place] [id number] Nov, [facility] [address] [id number] [address] [place] [id number] October, [facility] [address] [id number] [address] [place] [phone] October, Other B-complex deficiencies 266.2 [facility] [address] [id number] [address] [place] [address], [place] [id number] October, [facility] [address] [id number] [address] [place] [id number] 14 Sep, 2014 [facility] [address] [id number] [address] [place] [id number] Sep, [facility] [address] [id number] [address] [place] [id number] 20 Aug, 2014 [facility] [address] [id number] [address] [place] [address], [place] [id number] Aug, [facility] [address] [id number] [address] [place] [phone] Aug, [facility] [address] [id number] [address] [place] [id number] Aug, [facility] [address] [id number] [address] [place] [id number] Aug, [facility] [address] [id number] [address] [place] [phone] Aug, [facility] [address] [id number] [address] [place] [id number] 18 Jul, 2014 [facility] [address] [id number] [address] [place] [id number] Jul, [facility] [address] [id number] [address] [place] [id number] Jul, [facility] [address] [id number] [address] [place] [id number] Jul, [facility] [address] [id number] [address] [place] [id number] Jul, [facility] [address] [id number] [address] [place] [id number] Jul, [facility] [address] [id number] [address] [place] [address], [place] [id number] Jul, 2014 [facility] [address] [id number] [address] [place] [address], [place] [id number] Jul, 2014 [facility] [address] [id number] [address] [place] [address], [place] [id number] Jul, 2014 [facility] [address] [id number] [address] [place] [address], [place] [id number] Jul, 2014 [facility] [address] [id number] [address] [place] [address], [place] [id number] Jul, 2014 [facility] [address] [id number] [address] [place] [address], [place] [id number] Jul, 2014 [facility] [address] [id number] [address] [place] [address], [place] [id number] Jul, [facility] [address] [id number] [address] [place] [address], [place] [id number] Jul, [facility] [address] [id number] [address] [place] [address], [place] [id number] Jun, [facility] [address] [id number] [address] [place] [address], [place] [id number] Jun, [facility] [address] [id number] [address] [place] [address], [place] [id number] Jun, [facility] [address] [id number] [address] [place] [address], [place] [id number] Jun, [facility] [address] [id number] [address] [place] [address], [place] [id number] Jun, [facility] [address] [id number] [address] [place] [address], [place] [id number] Jun, [facility] [address] [id number] [address] [place] [address], [place] [id number] Jun, [facility] [address] [id number] [address] [place] [address], [place] [id number] Jun, [facility] [address] [id number] [address] [place] [address], [place] [id number] Jun, [facility] [address] [id number] [address] [place] [address], [place] [id number] Jun, [facility] [address] [id number] [address] [place] [address], [place] [id number] Jun, [facility] [address] [id number] [address] [place] [address], [place] [id number] Jun, [facility] [address] [id number] [address] [place] [address], [place] [id number] Jun, [facility] [address] [id number] [address] [place] [address], [place] [id number] Jun, [facility] [address] [id number] [address] [place] [address], [place] [id number] May, [facility] [address] [id number] [address] [place] [address], [place] [id number] May, [facility] [address] [id number] [address] [place] [address], [place] [id number] May, [facility] [address] [id number] [address] [place] [address], [place] [id number] May, [facility] [address] [id number] [address] [place] [address], [place] [id number] Apr, [facility] [address] [id number] [address] [place] [address], [place] [id number] Apr, [facility] [address] [id number] [address] [place] [address], [place] [id number] Apr, [facility] [address] [id number] [address] [place] [address], [place] [id number] Apr, [facility] [address] [id number] [address] [place] [address], [place] [id number] Apr, [facility] [address] [id number] [address] [place] [address], [place] [id number] Apr, [facility] [address] [id number] [address] [place] [address], [place] [id number] Mar, [facility] [address] [id number] [address] [place] [address], [place] [id number] Mar, [facility] [address] [id number] [address] [place] [address], [place] [id number] Mar, [facility] [address] [id number] [address] [place] [address], [place] [id number] Mar, [facility] [address] [id number] [address] [place] [address], [place] [id number] Mar, [facility] [address] [id number] [address] [place] [address], [place] [id number] Mar, [facility] [address] [id number] [address] [place] [address], [place] [id number] Mar, [facility] [address] [id number] [address] [place] [address], [place] [id number] Mar, [facility] [address] [id number] [address] [place] [address], [place] [id number] Mar, [facility] [address] [id number] [address] [place] [address], [place] [id number] Mar, [facility] [address] [id number] [address] [place] [address], [place] [id number] Mar, [facility] [address] [id number] [address] [place] [address], [place] [address] Mar, [facility] [address] [id number] [address] [place] [address], [place] [id number] Mar, [facility] [address] [id number] [address] [place] [address], [place] [id number] Feb, [facility] [address] [id number] [address] [place] [address], [place] [id number] 26 Feb, 2014 [facility] [address] [id number] [address] [place] [address], [place] [id number] 23 Feb, 2014 [facility] [address] [id number] [address] [place] [address], [place] [address] Feb, [facility] [address] [id number] [address] [place] [address], [place] [id number] 19 Feb, 2014 [facility] [address] [id number] [address] [place] [address], [place] [id number] 19 Feb, 2014 [facility] [address] [id number] [address] [place] [address], [place] [id number] 13 Feb, 2014 [facility] [address] [id number] [address] [place] [address], [place] [id number] Feb, [facility] [address] [id number] [address] [place] [address], [place] [id number] Feb, [facility] [address] [id number] [address] [place] [address], [place] [id number] Feb, [facility] [address] [id number] [address] [place] [address], [place] [id number] Jan, [facility] [address] [id number] [address] [place] [address], [place] [id number] Jan, [facility] [address] [id number] [address] [place] [address], [place] [address] Dec, [facility] [address] [id number] [address] [place] [address], [place] [id number] Dec, [facility] [address] [id number] [address] [place] [address], [place] [address] Dec, [facility] [address] [id number] [address] [place] [address], [place] [id number] Dec, [facility] [address] [id number] [address] [place] [address], [place] [address] Dec, [facility] [address] [id number] [facility] [place] [id number] Dec, [facility] [address] [id number] [facility] [place] [id number] Nov, [facility] [address] [id number] [facility] [place] [address] Nov, [facility] [address] [id number] [address] [place] [address], [place] [id number] Nov, [facility] [address] [id number] [address] [place] [address], [place] [address] Nov, [facility] [address] [id number] [address] [place] [address], [place] [id number] October, [facility] [address] [id number] [address] [place] [address], [place] [id number] October, [facility] [address] [id number] [address] [place] [address], [place] [id number] October, [facility] [address] [id number] [address] [place] [address], [place] [id number] October, [facility] [address] [id number] [address] [place] [address], [place] [id number] October, [facility] [address] [id number] [address] [place] [address], [place] [address] October, [facility] [address] [id number] [address] [place] [address], [place] [address] October, [facility] [address] [id number] [address] [place] [address], [place] [id number] October, [facility] [address] [id number] [address] [place] [address], [place] [id number] October, [facility] [address] [id number] [address] [place] [address], [place] [id number] October, [facility] [address] [id number] [address] [place] [address], [place] [address] October, [facility] [address] [id number] [address] [place] [address], [place] [id number] October, [facility] [address] [id number] [address] [place] [address], [place] [id number] October, [facility] [address] [id number] [address] [place] [address], [place] [id number] October, [facility] [address] [id number] [address] [place] [address], [place] [id number] October, [facility] [address] [id number] [address] [place] [address], [place] [address] October, [facility] [address] [id number] [address] [place] [address], [place] [address] Sep, [facility] [address] [id number] [address] [place] [address], [place] [address] Sep, [facility] [address] [id number] [address] [place] [address], [place] [address] Sep, [facility] [address] [id number] [address] [place] [address], [place] [id number] Sep, [facility] [address] [id number] [address] [place] [address], [place] [address] Sep, [facility] [address] [id number] [address] [place] [address], [place] [address] Sep, [facility] [address] [id number] [address] [place] [address], [place] [address] Aug, [facility] [address] [id number] [address] [place] [address], [place] [address] Aug, [facility] [address] [id number] [address] [place] [address], [place] [address] Aug, [facility] [address] [id number] [address] [place] [address], [place] [address] Aug, [facility] [address] [id number] [address] [place] [address], [place] [id number] 05 Aug, 2013 [facility] [address] [id number] [address] [place] [address], [place] [id number] Aug, [facility] [address] [id number] [address] [place] [address], [place] [id number] Jul, [facility] [address] [id number] [address] [place] [address], [place] [id number] Jul, [facility] [address] [id number] [address] [place] [address], [place] [id number] Jul, [facility] [address] [id number] [address] [place] [address], [place] [id number] Jul, [facility] [address] [id number] [address] [place] [address], [place] [id number] Jun, [facility] [address] [id number] [address] [place] [address], [place] [id number] Jun, [facility] [address] [id number] [address] [place] [address], [place] [id number] May, [facility] [address] [id number] [address] [place] [address], [place] [id number] May, [facility] [address] [id number] [address] [place] [address], [place] [id number] May, [facility] [address] [id number] [address] [place] [address], [place] [id number] May, [facility] [address] [id number] [address] [place] [address], [place] [id number] May, [facility] [address] [id number] [address] [place] [address], [place] [id number] Apr, [facility] [address] [id number] [address] [place] [address], [place] [id number] Apr, [facility] [address] [id number] [address] [place] [address], [place] [id number] Apr, [facility] [address] [id number] [address] [place] [address], [place] [id number] Apr, [facility] [address] [id number] [address] [place] [address], [place] [address] Apr, [facility] [address] [id number] [address] [place] [address], [place] [id number] Apr, [facility] [address] [id number] [address] [place] [address], [place] [id number] 15 Mar, 2013 [facility] [address] [id number] [address] [place] [address], [place] [id number] 15 Mar, 2013 [facility] [address] [id number] [address] [place] [address], [place] [id number] 14 Mar, 2013 [facility] [address] [id number] [address] [place] [address], [place] [id number] 14 Mar, 2013 [facility] [address] [id number] [address] [place] [address], [place] [id number] Mar, [facility] [address] [id number] [address] [place] [address], [place] [id number] Mar, [facility] [address] [id number] [address] [place] [address], [place] [id number] 23 Feb, 2013 [facility] [address] [id number] [address] [place] [address], [place] [id number] Feb, [facility] [address] [id number] [address] [place] [address], [place] [id number] Feb, [facility] [address] [id number] [address] [place] [address], [place] [id number] Jan, [facility] [address] [id number] [address] [place] [address], [place] [id number] Jan, [facility] [address] [id number] [address] [place] [address], [place] [id number] Jan, [facility] [address] [id number] [address] [place] [address], [place] [id number] Jan, [facility] [address] [id number] [address] [place] [address], [place] [id number] Jan, [facility] [address] [id number] [address] [place] [address], [place] [id number] Jan, [facility] [address] [id number] [address] [place] [address], [place] [id number] Dec, [facility] [address] [id number] [address] [place] [address], [place] [id number] Dec, [facility] [address] [id number] [address] [place] [address], [place] [id number] Dec, [facility] [address] [id number] [address] [place] [address], [place] [id number] Dec, [facility] [address] [id number] [address] [place] [address], [place] [id number] Dec, [facility] [address] [id number] [address] [place] [address], [place] [id number] Dec, [facility] [address] [id number] [address] [place] [address], [place] [id number] Nov, [facility] [address] [id number] [address] [place] [address], [place] [id number] Nov, [facility] [address] [id number] [address] [place] [address], [place] [id number] Nov, [facility] [address] [id number] [address] [place] [address], [place] [id number] Nov, [facility] [address] [id number] [address] [place] [address], [place] [id number] Nov, [facility] [address] [id number] [address] [place] [address], [place] [id number] Nov, [facility] [address] [id number] [address] [place] [address], [place] [id number] October, [facility] [address] [id number] [address] [place] [address], [place] [id number] October, [facility] [address] [id number] [address] [place] [address], [place] [id number] October, [facility] [address] [id number] [address] [place] [address], [place] [id number] October, [facility] [address] [id number] [address] [place] [address], [place] [id number] October, [facility] [facility] [address] [id number] [address] [place] [address], [place] [id number] 30 Sep, 2012 [facility] [address] [id number] [address] [place] [address], [place] [id number] 23 Sep, 2012 [facility] [address] [id number] [address] [place] [address], [place] [id number] Sep, [facility] [address] [id number] [address] [place] [address], [place] [id number] Sep, [facility] [address] [id number] [address] [place] [address], [place] [id number] Sep, [facility] [address] [id number] [address] [place] [address], [place] [id number] 26 Aug, 2012 [facility] [address] [id number] [address] [place] [address], [place] [id number] Aug, [facility] [address] [id number] [address] [place] [address], [place] [id number] Aug, [facility] [address] [id number] [address] [place] [address], [place] [id number] Jul, [facility] [address] [id number] [address] [place] [address], [place] [id number] 20 Jul, 2012 [facility] [address] [id number] [address] [place] [address], [place] [id number] Jul, [facility] [address] [id number] [address] [place] [address], [place] [id number] Jul, [facility] [address] [id number] [address] [place] [address], [place] [id number] Jul, [facility] [address] [id number] [address] [place] [address], [place] [id number] Jul, [facility] [address] [id number] [address] [place] [address], [place] [id number] Jun, [facility] [address] [id number] [address] [place] [address], [place] [id number] Apr, [facility] [address] [id number] [address] [place] [address], [place] [id number] Apr, [facility] [address] [id number] [address] [place] [address], [place] [id number] Apr, [facility] [address] [id number] [address] [place] [address], [place] [id number] Apr, [facility] [address] [id number] [address] [place] [address], [place] [id number] Mar, [facility] [address] [id number] [address] [place] [address], [place] [id number] Mar, [facility] [address] [id number] [address] [place] [address], [place] [id number] Mar, [facility] [address] [id number] [address] [place] [id number] Mar, [facility] [address] [id number] [address] [place] [id number] Mar, [facility] [address] [id number] [address] [place] [address], [place] [id number] Feb, [facility] [address] [id number] [address] [place] [address], [place] [id number] Jan, [facility] [address] [id number] [address] [place] [address], [place] [id number] Jan, [facility] [address] [id number] [address] [place] [id number] Jan, [facility] [address] [id number] [address] [place] [id number] Dec, [facility] [address] [id number] [address] [place] [id number] Nov, [facility] [address] [id number] [address] [place] [id number] Nov, [facility] [address] [id number] [address] [place] [id number] Nov, [facility] [address] [id number] [address] [place] [id number] Nov, [facility] [address] [id number] [address] [place] [phone] Nov, [facility] [address] [id number] [address] [place] [id number] October, [facility] [address] [id number] [address] [place] [id number] October, [facility] [address] [id number] [address] [place] [id number] October, [facility] [address] [id number] [address] [place] [id number] October, [facility] [address] [id number] [address] [place] [id number] October, IMMUNIZATIONS No Known Immunizations SOCIAL HISTORY Never Assessed REASON FOR VISIT Referral PLAN OF CARE VITAL SIGNS MEDICATIONS Unknown [...]
--- OUTSIDE RECORDS SUMMARY | 2020-01-25 07:54 | XMS REPORT ---
Author Author Velma Javed Doctor Organization 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 Active 29284411 Problem Body mass index (BMI) of 40.0-44.9 in adult Z68.41 Active 200340237 Problem Mood disorder F39 Active 312106 05 Problem Unspecified kidney failure N19 Act chip 68288222 Problem Arthritis M19.90 Active 1770707 Problem BPV (benign positional vertigo), bilateral H81.13 Active 224458183 Problem Chronic kidney disease, stage 4 (severe) N18.4 Active 847082706 Problem Primary osteoarthritis of left knee M17.12 Active [id number] Problem Irritable bowel syndrome with both constipation and diarrh ea K58.2 Active 92754573 ALLERGIES Substance Reaction Event Type Date Status Clonidine 0.1 Mg Tablet Blurry vission and weakness. Non Drug Al lergy Sep, Active ENCOUNTERS Encounter Location Date Diagnosis [facility] [address] [facility] [id number] [address] [place] [id number] Nov, [facility] [address] [facility] [id number] [address] [place] [phone] Nov, [facility] [address] [facility] [id number] [address] [place] [id number] 14 Nov, 2018 Labyrinthitis of left ear H8 3.02 [facility] [address] [facility] [id number] [address] [place] [phone] Nov, Arthritis M19.90 [facility] [address] [id number] [address] [place] [phone] Sep, Arthritis M19.90 [facility] [address] [id number] [address] [place] [id number] 08 Sep, 2018 Renal insufficiency N28.9 an d Unspecified kidney failure N19 [facility] [address] [id number] [address] [place] [phone] Sep, Renal insufficiency N28.9 an d Unspecified kidney failure N19 [facility] [address] [id number] [address] [place] [phone] Sep, Arthritis M19.90 [facility] [address] [id number] [address] [place] [id number] Aug, Exercise counseling Z71.82 [facility] [address] [id number] [address] [place] [phone] Aug, [facility] [address] [id number] [address] [place] [phone] Jul, Labyrinthitis of left ear H8 3.02 [facility] [address] [id number] [address] [place] [id number] Jul, Labyrinthitis of left ear H8 3.02 [facility] [address] [id number] [address] [place] [phone] Jul, Exercise counseling Z71.82 [facility] [address] [id number] [address] [place] [id number] 18 Jul, 2018 [facility] [address] [id number] [address] [place] [id number] 14 Jul, [address] [facility] [address] [facility] [id number] [address] [place] [id number] 13 Jul, 2018 Encounter for Medicare annua wellness exam Z00.00 ; Chronic kidney disease, stage 4 (severe) N18.4 ; Body mass index (BMI) of 40.0-44.9 in adult Z68.41 ; Hyperparathyroidism E21.3 and BMI 40.0-44.9, adult Z68.41 [facility] [address] [facility] [id number] [address] [place] [id number] 13 Jul, 2018 Encounter for Medicare annua l wellness exam Z00.00 ; Chronic kidney disease, stage 4 (severe) N18.4 ; Hyperparathyroidism E21.3 ; Body mass index (BMI) of 40.0-44.9 in adult Z68.41 and Encounter for immunization Z23 [place] [address] [facility] [id number] [address] [place] [id number] 11 Jul, 2018 Tail bone pain M53.3 [place] [address] [place] [id number] [place] [phone] 29 Jun, 2018 Exercise counseling Z71.82 [place] [address] [place] [id number] [address] [place] [id number] 28 Jun, 2018 Labyrinthitis of left ear H8 3.02 [place] [address] [place] [id number] [address] [place] [phone] Jun, Tail bone pain M53.3 ; Irrit able bowel syndrome with both constipation and diarrhea K58.2 and Dysfunction of left eustachian tube H69.82 [place] [address] [facility] [id number] [address] [place] [id number] Jun, Exercise counseling Z71.82 [place] [address] [facility] [id number] [address] [place] [id number] Jun, Arthritis M19.90 [place] [address] [facility] [id number] [address] [place] [id number] 16 Jun, 2018 Irritable bowel syndrome wit h both constipation and diarrhea K58.2 ; Tail bone pain M53.3 and Dysfunction of left eustachian tube H69.82 [place] [address] [place] [id number] [address] [place] [id number] Jun, Exercise counseling Z71.82 [facility] [address] [id number] [address] [place] [phone] Jun, Exercise counseling Z71.82 [facility] [address] [id number] [address] [place] [id number] Jun, Labyrinthitis of left ear H8 3.02 [facility] [address] [id number] [address] [place] [phone] May, Exercise counseling Z71.82 [facility] [address] [id number] [address] [place] [phone] May, Arthritis M19.90 [facility] [address] [id number] [address] [place] [phone] May, Exercise counseling Z71.82 [facility] [address] [id number] [address] [place] [phone] May, Exercise counseling Z71.82 [facility] [address] [id number] [address] [place] [phone] May, Labyrinthitis of left ear H8 3.02 [facility] [address] [id number] [address] [place] [phone] May, Exercise counseling Z71.82 [facility] [address] [id number] [address] [place] [id number] Apr, Arthritis M19.90 [facility] [address] [id number] [address] [place] [phone] Apr, Exercise counseling Z71.82 [facility] [address] [id number] [address] [place] [phone] Apr, Exercise counseling Z71.82 [facility] [address] [id number] [address] [place] [phone] 08 Apr, 2018 Primary osteoarthritis of le ft knee M17.12 [facility] [address] [id number] [address] [place] [phone] Apr, Labyrinthitis of left ear H8 3.02 [facility] [address] [place] [id number] [place] [id number] Mar, Arthritis M19.90 [facility] [address] [place] [id number] [address] [place] [id number] Mar, [facility] [address] [place] [id number] [place] [phone] Mar, Chronic kidney disease, stag e 4 (severe) N18.4 [place] [address] [place] [id number] [place] [phone] Mar, Chronic kidney disease, stag e 4 (severe) N18.4 [place] [address] [place] [id number] [place] [phone] Mar, Labyrinthitis of left ear H8 3.02 [facility] [address] [place] [id number] [place] [phone] Mar, Chronic kidney disease, stag e 4 (severe) N18.4 ; Knee pain, left anterior M25.562 ; Deficiency of other specified B group vitamins E53.8 and Encounter for immunization Z23 [place] [address] [place] [id number] [place] [phone] Mar, Arthritis M19.90 [facility] [address] [place] [id number] [address] [place] [phone] Feb, Labyrinthitis of left ear H8 3.02 [facility] [address] [place] [id number] [address] [place] [phone] Feb, Arthritis M19.90 [facility] [address] [place] [id number] [address] [place] [phone] Jan, Labyrinthitis of left ear H8 3.02 [facility] [address] [place] [id number] [address] [place] [id number] Jan, Arthritis M19.90 [facility] [address] [facility] [id number] [address] [place] [phone] Dec, Labyrinthitis of left ear H8 3.02 [facility] [address] [facility] [id number] [address] [place] [phone] Nov, Arthritis M19.90 [facility] [address] [place] [id number] [address] [place] [id number] Nov, Labyrinthitis of left ear H8 3.02 [facility] [address] [facility] [id number] [address] [place] [phone] Nov, BMI 40.0-44.9, adult Z68.41 ; Chronic kidney disease, stage 4 (severe) N18.4 and Acute right-sided thoracic back pain M54.6 [place] [address] [place] [id number] [address] [place] [id number] October, Labyrinthitis of left ear H8 3.[address] [facility] [address] [facility] [id number] [address] [place] [phone] Sep, BPV (benign positional verti go), bilateral H81.13 ; Dysfunction of left eustachian tube H69.82 and BMI 40.0-44.9, adult Z68.41 [place] [address] [place] [id number] [address] [place] [phone] Sep, Labyrinthitis of left ear H8 3.[address] [facility] [address] [facility] [id number] [address] [place] [phone] Sep, [facility] [address] [place] [id number] [address] [place] [id number] Sep, [facility] [address] [place] [id number] [address] [place] [id number] Sep, Chronic kidney disease, stag e 4 (severe) N18.4 [place] [address] [facility] [id number] [address] [place] [phone] Sep, Chronic kidney disease, stag e 4 (severe) N18.4 [place] [address] [facility] [id number] [address] [place] [id number] Aug, Labyrinthitis of left ear H8 3.02 and Arthritis M19.90 [place] [address] [facility] [id number] [address] [place] [phone] Aug, [place] [address] [facility] [id number] [address] [place] [id number] Jul, [place] [address] [facility] [id number] [address] [place] [id number] Jul, Arthritis M19.90 and Labyrin thitis of left ear H83.02 [place] [address] [place] [id number] [address] [place] [id number] Jul, [place] [address] [facility] [id number] [address] [place] [phone] Jun, [place] [address] [place] [id number] [address] [place] [id number] Jun, Arthritis M19.90 and Labyrin thitis of left ear H83.02 [place] [address] [place] [id number] [address] [place] [phone] Jun, Pre-op evaluation Z01.818 ; BMI 40.0-44.9, adult Z68.41 and Encounter for immunization Z23 [place] [address] [facility] [id number] [address] [place] [phone] May, Arthritis M19.90 and Labyrin thitis of left ear H83.02 [place] [address] [facility] [id number] [address] [place] [phone] Apr, Labyrinthitis of left ear H8 3.02 [place] [address] [place] [id number] [address] [place] [phone] Apr, Arthritis M19.90 and Labyrin thitis of left ear H83.02 [facility] [address] [facility] [id number] [address] [place] [id number] 10 Mar, 2017 Arthritis M19.90 and Labyrin thitis of left ear H83.02 [facility] [address] [facility] [id number] [address] [place] [id number] 05 Mar, 2017 Chronic kidney disease, stag e 4 (severe) N18.4 [facility] [address] [facility] [id number] [address] [place] [phone] Feb, Arthritis M19.90 and Labyrin thitis of left ear H83.02 [place] [address] [facility] [id number] [address] [place] [phone] Jan, Labyrinthitis of left ear H8 3.02 and Deficiency of other specified B group vitamins E53.8 [place] [address] [facility] [id number] [address] [place] [id number] Dec, Arthritis M19.90 [facility] [address] [id number] [address] [place] [phone] Dec, BPV (benign positional verti go), bilateral H81.13 [facility] [address] [facility] [id number] [address] [place] [phone] Dec, [facility] [address] [facility] [id number] [address] [place] [phone] Dec, [facility] [address] [facility] [id number] [address] [place] [phone] Dec, [facility] [address] [facility] [id number] [address] [place] [phone] Nov, Arthritis M19.90 and Deficie ncy of other specified B group vitamins E53.8 [facility] [address] [id number] [address] [place] [id number] Nov, Arthritis M19.90 [place] [address] [id number] [address] [place] [phone] Nov, Hyperparathyroidism E21.3 [facility] [address] [facility] [id number] [address] [place] [phone] October, [facility] [address] [facility] [id number] [address] [place] [phone] October, Hyperparathyroidism E21.3 [facility] [address] [facility] [id number] [address] [place] [id number] October, [facility] [address] [facility] [id number] [address] [place] [phone] October, Renal insufficiency N28.9 an d Hyperparathyroidism E21.3 [facility] [address] [facility] [id number] [address] [place] [phone] October, [facility] [address] [facility] [id number] [address] [place] [phone] October, Renal insufficiency N28.9 an d Hyperparathyroidism E21.3 [facility] [address] [facility] [id number] [address] [place] [id number] October, Arthritis M19.90 [facility] [address] [facility] [id number] [address] [place] [id number] Sep, [facility] [address] [facility] [id number] [address] [place] [phone] Sep, Lumbar neuritis M54.16 ; Tho racic abscess J86.9 and Deficiency of other specified B group vitamins E53.8 [facility] [address] [facility] [id number] [address] [place] [id number] Sep, [facility] [address] [facility] [id number] [address] [place] [id number] Aug, Arthritis M19.90 [facility] [address] [facility] [id number] [address] [place] [phone] Aug, Hyperparathyroidism E21.3 [facility] [address] [place] [id number] [address] [place] [id number] Aug, Hyperparathyroidism E21.3 [facility] [address] [facility] [id number] [address] [place] [id number] Aug, Arthritis M19.90 [facility] [address] [facility] [id number] [address] [place] [phone] Jul, Mass of throat R22.1 [facility] [address] [facility] [id number] [address] [place] [phone] Jul, [facility] [address] [facility] [id number] [address] [place] [id number] Jul, Arthritis M19.90 [facility] [address] [place] [id number] [address] [place] [id number] Jun, Arthritis M19.90 [facility] [address] [place] [id number] [address] [place] [phone] Jun, [facility] [address] [facility] [id number] [address] [place] [phone] Jun, Renal insufficiency N28.9 an d 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 [facility] [address] [facility] [id number] [address] [place] [id number] 05 Jun, 2016 Medicare welcome exam Z00.00 ; Encounter for immunization Z23 ; Arthritis M19.90 ; Medicare annual wellness visit, initial Z00.00 ; Medicare annual wellness visit, subsequent Z00.00 and Deficiency of other specified B group vitamins E53.8 [facility] [address] [facility] [id number] [address] [place] [phone] May, Renal insufficiency N28.9 an d 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 [facility] [address] [facility] [id number] [address] [place] [phone] May, Renal insufficiency N28.9 [facility] [address] [facility] [id number] [address] [place] [phone] May, Renal insufficiency N28.9 [facility] [address] [id number] [address] [place] [id number] [address], [address] [facility] [address] [facility] [id number] [address] [place] [id number] [address], [address] [facility] [address] [facility] [id number] [address] [place] [id number] [address], [address] [facility] [address] [facility] [id number] [address] [place] [phone] 14 Apr, 2016 Mass of throat R22.1 [facility] [address] [id number] [address] [place] [phone] Apr, [facility] [address] [facility] [id number] [address] [place] [phone] Apr, Mass of throat R22.1 [facility] [address] [facility] [id number] [address] [place] [phone] 04 Apr, 2016 Mass of throat R22.1 [facility] [address] [id number] [address] [place] [phone] Mar, [facility] [address] [facility] [id number] [address] [place] [phone] Mar, [facility] [address] [facility] [id number] [address] [place] [phone] Mar, [facility] [address] [facility] [id number] [address] [place] [phone] 24 Mar, 2016 Parathyroid abnormality E21. 5 and Encounter for immunization Z23 [facility] [address] [facility] [id number] [address] [place] [phone] [address], [address] [facility] [address] [facility] [id number] [address] [place] [phone] Mar, [facility] [address] [facility] [id number] [address] [place] [phone] Feb, Renal insufficiency N28.9 an d Hyperparathyroidism E21.3 [facility] [address] [facility] [id number] [address] [place] [id number] 19 Feb, 2016 [facility] [address] [facility] [id number] [phone] 15 Feb, 2016 Renal insufficiency N28.9 an d Hyperparathyroidism E21.3 [facility] [address] [facility] [id number] [address] [place] [id number] [address], [address] [facility] [address] [place] [id number] [place] [phone] Feb, [facility] [address] [place] [id number] [address] [place] [phone] Feb, [place] [address] [place] [id number] [place] [phone] Jan, [place] [address] [place] [id number] [place] [id number] Jan, Arthritis M19.90 ; Lumbago w ith sciatica, right side M54.41 and Other chronic pain G89.29 [place] [address] [place] [id number] [address] [place] [phone] Jan, [facility] [address] [place] [id number] [place] [phone] Dec, Arthritis M19.90 ; Lumbago w ith sciatica, right side M54.41 and Other chronic pain G89.29 [place] [id number] [place] [phone] Nov, Deficiency of other specifie d B group vitamins E53.8 ; Primary insomnia F51.01 ; Mood disorder F39 and Lumbago with sciatica, right side M54.41 [place] [address] [place] [id number] [place] [phone] Nov, Hyperparathyroidism E21.3 [facility] [address] [facility] [id number] [address] [place] [phone] Nov, Unspecified kidney failure N [address] [facility] [address] [address] October, Hyperparathyroidism E21.3 [facility] [address] [id number] October, [facility] [address] [address] October, Hyperparathyroidism E21.3 [facility] [address] [address] October, Hyperparathyroidism E21.3 [facility] [address] [address] Sep, Hyperparathyroidism E21.3 ; Hypercholesterolemia E78.[address] [facility] [address] [address] Aug, [facility] [address] [address] Aug, Deficiency of other specifie d B group vitamins E53.8 [facility] [address] [address] Aug, [facility] [address] [address] Jul, Urinary frequency R35.0 [facility] [address] [id number] Jul, Urinary frequency R35.0 [facility] [address] [address] Jul, [facility] [address] [id number] Jul, [facility] [address] [address] Jun, Pain in left knee M25.562 [facility] [address] [place] [id number] [place] [id number] Jun, [facility] [address] [facility] [id number] [address] [place] [id number] May, Swelling of left knee joint M25.462 [facility] [address] [facility] [id number] [address] [place] [id number] May, [facility] [address] [place] [id number] [place] [phone] May, [facility] [address] [facility] [id number] [address] [place] [phone] May, [facility] [address] [place] [id number] [place] [phone] Apr, Renal insufficiency N28.9 an d Chronic kidney disease, stage 4 (severe) N18.4 [facility] [address] [place] [id number] [place] [address] Apr, Unspecified kidney failure N 19 [facility] [address] [facility] [id number] [address] [place] [id number] Apr, Unspecified kidney failure N 19 [facility] [address] [place] [id number] [address] [place] [id number] Apr, [facility] [address] [place] [id number] [address] [place] [id number] Apr, Hyperparathyroidism, unspeci fied 252.00 [facility] [address] [facility] [id number] [address] [place] [phone] Apr, [facility] [address] [facility] [id number] [address] [place] [phone] Mar, [facility] [address] [place] [id number] [address] [place] [id number] Mar, [facility] [address] [facility] [id number] [address] [place] [id number] Mar, Hyperparathyroidism, unspeci fied 252.00 [facility] [address] [id number] [address] [place] [address], [place] [address] Feb, [facility] [address] [id number] [address] [place] [id number] Feb, Otalgia 388[address] [facility] [address] [id number] [address] [place] [address], [place] [address] Feb, [facility] [address] [id number] [address] [place] [id number] Feb, [facility] [address] [id number] [address] [place] [address], [place] [address] Jan, [facility] [address] [id number] [address] [place] [phone] Jan, Hyperparathyroidism, unspeci fied 252.00 [facility] [address] [id number] [address] [place] [id number] Jan, [facility] [address] [id number] [address] [place] [id number] Jan, Other B-complex deficiencies 266.2 and Hyperparathyroidism, unspecified 252.[address] [facility] [address] [id number] [address] [place] [id number] Jan, [facility] [address] [id number] [address] [place] [phone] Jan, [facility] [address] [id number] [address] [place] [phone] Jan, [facility] [address] [id number] [address] [place] [phone] Dec, [facility] [address] [id number] [address] [place] [phone] Dec, [facility] [address] [id number] [address] [place] [id number] Dec, [facility] [address] [id number] [address] [place] [phone] 15 Nov, 2014 Routine check-up V70.0 and P re-op exam V72.84 [facility] [address] [id number] [address] [place] [id number] 12 Nov, 2014 [facility] [address] [id number] [address] [place] [phone] 09 Nov, 2014 [facility] [address] [id number] [address] [place] [id number] October, [facility] [address] [id number] [address] [place] [id number] October, Other B-complex deficiencies 266.2 [facility] [address] [id number] [address] [place] [phone] October, [facility] [address] [id number] [address] [place] [id number] 14 Sep, 2014 [facility] [address] [id number] [address] [place] [phone] Sep, [facility] [address] [id number] [address] [place] [phone] Aug, [facility] [address] [id number] [address] [place] [id number] Aug, [facility] [address] [id number] [address] [place] [id number] 17 Aug, [address] [facility] [address] [id number] [address] [place] [id number] 17 Aug, 2014 [facility] [address] [id number] [address] [place] [phone] Aug, [facility] [address] [id number] [address] [place] [phone] Aug, [facility] [address] [id number] [address] [place] [id number] [address], [address] [facility] [address] [id number] [address] [place] [address] [place] [address] Jul, 2014 [facility] [address] [id number] [address] [place] [address], [place] [address] Jul, 2014 [facility] [address] [id number] [address] [place] [address], [place] [address] Jul, 2014 [facility] [address] [id number] [address] [place] [address], [place] [address] Jul, 2014 [facility] [address] [id number] [address] [place] [address], [place] [address] Jul, 2014 [facility] [address] [id number] [address] [place] [address], [place] [address] Jul, 2014 [facility] [address] [id number] [address] [place] [address], [place] [address] Jul, 2014 [facility] [address] [id number] [address] [place] [address], [place] [address] Jul, 2014 [facility] [address] [id number] [address] [place] [address], [place] [address] Jul, 2014 [facility] [address] [id number] [address] [place] [address], [place] [address] Jul, 2014 [facility] [address] [id number] [address] [place] [phone] Jul, 2014 [facility] [address] [id number] [address] [place] [phone] Jul, 2014 [facility] [address] [id number] [address] [place] [address], [place] [address] Jul, 2014 [facility] [address] [id number] [address] [place] [address], [place] [address] Jun, [facility] [address] [id number] [address] [place] [phone] Jun, [facility] [address] [id number] [address] [place] [id number] Jun, [facility] [address] [id number] [address] [place] [address], [place] [address] Jun, [facility] [address] [id number] [address] [place] [address], [place] [address] Jun, [facility] [address] [id number] [address] [place] [address], [place] [address] Jun, [facility] [address] [id number] [address] [place] [address], [place] [address] Jun, [facility] [address] [id number] [address] [place] [address], [place] [address] Jun, [facility] [address] [id number] [address] [place] [address], [place] [address] Jun, [facility] [address] [id number] [address] [place] [address], [place] [address] Jun, [facility] [address] [id number] [address] [place] [address], [place] [address] Jun, [facility] [address] [id number] [address] [place] [address], [place] [address] Jun, [facility] [address] [id number] [address] [place] [address], [place] [address] Jun, [facility] [address] [id number] [address] [place] [address], [place] [address] Jun, [facility] [address] [id number] [address] [place] [address], [place] [address] May, [facility] [address] [id number] [address] [place] [address], [place] [address] May, [facility] [address] [id number] [address] [place] [address], [place] [address] May, [facility] [address] [id number] [address] [place] [address], [place] [address] May, [facility] [address] [id number] [address] [place] [address], [place] [address] Apr, [facility] [address] [id number] [address] [place] [address], [place] [address] Apr, [facility] [address] [id number] [address] [place] [address], [place] [address] Apr, [facility] [address] [id number] [address] [place] [address], [place] [address] Apr, [facility] [address] [id number] [address] [place] [address], [place] [address] Apr, [facility] [address] [id number] [address] [place] [address], [place] [address] Apr, [facility] [address] [id number] [address] [place] [address], [place] [address] Mar, [facility] [address] [id number] [address] [place] [address], [place] [address] Mar, [facility] [address] [id number] [address] [place] [address], [place] [address] Mar, [facility] [address] [id number] [address] [place] [address], [place] [address] Mar, [facility] [address] [id number] [address] [place] [address], [place] [address] Mar, [facility] [address] [id number] [address] [place] [address], [place] [address] Mar, [facility] [address] [id number] [address] [place] [address], [place] [address] Mar, [facility] [address] [id number] [address] [place] [address], [place] [address] Mar, [facility] [address] [id number] [address] [place] [address], [place] [address] Mar, [facility] [address] [id number] [address] [place] [address], [place] [address] Mar, [facility] [address] [id number] [address] [place] [address], [place] [address] 07 Mar, 2014 [facility] [address] [id number] [address] [place] [address], [place] [address] 07 Mar, 2014 [facility] [address] [id number] [address] [place] [address], [place] [address] Mar, [facility] [address] [id number] [address] [place] [address], [place] [address] Feb, 2013 [facility] [address] [id number] [address] [place] [address], [place] [address] 26 Feb, 2013 [facility] [address] [id number] [address] [place] [address], [place] [address] 23 Feb, 2013 [facility] [address] [id number] [address] [place] [address], [place] [address] Feb, 2013 [facility] [address] [id number] [address] [place] [address], [place] [address] 19 Feb, 2013 [facility] [address] [id number] [address] [place] [address], [place] [address] 19 Feb, 2014 [facility] [address] [id number] [address] [place] [address], [place] [address] 13 Feb, 2014 [facility] [address] [id number] [address] [place] [address], [place] [address] 13 Feb, 2014 [facility] [address] [id number] [address] [place] [address], [place] [address] 12 Feb, 2014 [facility] [address] [id number] [address] [place] [address], [place] [address] 12 Feb, 2014 [facility] [address] [id number] [address] [place] [address], [place] [address] 15 Jan, 2014 [facility] [address] [id number] [address] [place] [address], [place] [address] 15 Jan, 2014 [facility] [address] [id number] [address] [place] [address], [place] [address] Dec, [facility] [address] [id number] [facility] [place] [address] Dec, [facility] [address] [id number] [address] [place] [address], [place] [address] Dec, [facility] [address] [id number] [address] [place] [address], [place] [address] Dec, [facility] [address] [id number] [address] [place] [address], [place] [address] Dec, [facility] [address] [id number] [address] [place] [address], [place] [address] Dec, [facility] [address] [id number] [address] [place] [address], [place] [address] Nov, [facility] [address] [id number] [address] [place] [address], [place] [address] Nov, [facility] [address] [id number] [address] [place] [address], [place] [address] Nov, [facility] [address] [id number] [address] [place] [address], [place] [address] Nov, [facility] [address] [id number] [address] [place] [address], [place] [address] October, [facility] [address] [id number] [address] [place] [address], [place] [address] October, [facility] [address] [id number] [address] [place] [address], [place] [address] October, [facility] [address] [id number] [address] [place] [address], [place] [address] October, [facility] [address] [id number] [address] [place] [address], [place] [address] October, [facility] [address] [id number] [address] [place] [address], [place] [address] October, [facility] [address] [id number] [address] [place] [address], [place] [address] October, [facility] [address] [id number] [address] [place] [address], [place] [address] October, [facility] [address] [id number] [address] [place] [address], [place] [address] October, [facility] [address] [id number] [address] [place] [address], [place] [address] October, [facility] [address] [id number] [address] [place] [address], [place] [address] October, [facility] [address] [id number] [address] [place] [address], [place] [address] October, [facility] [address] [id number] [address] [place] [address], [place] [address] October, [facility] [address] [id number] [address] [place] [address], [place] [address] October, [facility] [address] [id number] [address] [place] [address], [place] [address] October, [facility] [address] [id number] [address] [place] [address], [place] [address] October, [facility] [address] [id number] [address] [place] [address], [place] [address] Sep, [facility] [address] [id number] [address] [place] [address], [place] [address] Sep, [facility] [address] [id number] [address] [place] [address], [place] [address] Sep, [facility] [address] [id number] [address] [place] [address], [place] [address] Sep, [facility] [address] [id number] [address] [place] [address], [place] [address] Sep, [facility] [address] [id number] [address] [place] [address], [place] [address] Sep, [facility] [address] [id number] [facility] [address] Aug, [facility] [address] [id number] [address] [place] [address], [place] [address] Aug, [facility] [address] [id number] [address] [place] [address], [place] [address] Aug, [facility] [address] [id number] [address] [place] [address], [place] [address] Aug, [facility] [address] [id number] [address] [place] [address], [place] [address] Aug, [facility] [address] [id number] [address] [place] [address], [place] [address] Aug, [facility] [address] [id number] [address] [place] [address], [place] [address] Jul, [facility] [address] [id number] [address] [place] [address], [place] [address] Jul, [facility] [address] [id number] [address] [place] [address], [place] [address] Jul, [facility] [address] [id number] [address] [place] [address], [place] [address] Jul, [facility] [address] [id number] [address] [place] [address], [place] [address] Jun, [facility] [address] [id number] [address] [place] [address], [place] [address] Jun, [facility] [address] [id number] [address] [place] [address], [place] [address] May, [facility] [address] [id number] [address] [place] [address], [place] [address] May, [facility] [address] [id number] [address] [place] [address], [place] [address] May, [facility] [address] [id number] [address] [place] [address], [place] [address] 09 May, 2013 [facility] [address] [id number] [address] [place] [address], [place] [address] May, [facility] [address] [id number] [address] [place] [address], [place] [address] Apr, [facility] [address] [id number] [address] [place] [address], [place] [address] Apr, [facility] [address] [id number] [address] [place] [address], [place] [address] Apr, [facility] [address] [id number] [address] [place] [address], [place] [address] Apr, [facility] [address] [id number] [address] [place] [address], [place] [address] Apr, [facility] [address] [id number] [address] [place] [address], [place] [address] Apr, [facility] [address] [id number] [address] [place] [address], [place] [address] 15 Mar, 2013 [facility] [address] [id number] [address] [place] [address], [place] [address] [address], [address] [facility] [address] [id number] [address] [place] [address], [place] [address] 14 Mar, 2013 [facility] [address] [id number] [address] [place] [address], [place] [address] 14 Mar, 2013 [facility] [address] [id number] [address] [place] [address], [place] [address] 11 Mar, 2013 [facility] [address] [id number] [address] [place] [address], [place] [address] 11 Mar, 2013 [facility] [address] [id number] [address] [place] [address], [place] [address] 23 Feb, 2013 [facility] [address] [id number] [address] [place] [address], [place] [address] Feb, [facility] [address] [id number] [address] [place] [address], [place] [address] Feb, [facility] [address] [id number] [address] [place] [address], [place] [address] Jan, [facility] [address] [id number] [address] [place] [address], [place] [address] Jan, [facility] [address] [id number] [address] [place] [address], [place] [address] Jan, [facility] [address] [id number] [address] [place] [address], [place] [address] Jan, [facility] [address] [id number] [address] [place] [address], [place] [address] Jan, [facility] [address] [id number] [address] [place] [address], [place] [address] Jan, [facility] [address] [id number] [address] [place] [address], [place] [address] Dec, [facility] [address] [id number] [address] [place] [address], [place] [address] Dec, [facility] [address] [id number] [address] [place] [address], [place] [address] Dec, [facility] [address] [id number] [address] [place] [address], [place] [address] Dec, [facility] [address] [id number] [address] [place] [address], [place] [address] Dec, [facility] [address] [id number] [address] [place] [address], [place] [address] Dec, [facility] [address] [id number] [address] [place] [address], [place] [address] Nov, [facility] [address] [id number] [address] [place] [address], [place] [address] Nov, [facility] [address] [id number] [address] [place] [address], [place] [address] Nov, [facility] [address] [id number] [address] [place] [address], [place] [address] Nov, [facility] [address] [id number] [address] [place] [address], [place] [address] Nov, [facility] [address] [id number] [address] [place] [address], [place] [address] Nov, [facility] [address] [id number] [address] [place] [address], [place] [address] October, [facility] [address] [id number] [address] [place] [address], [place] [address] October, [facility] [address] [id number] [address] [place] [address], [place] [address] October, [facility] [address] [id number] [address] [place] [address], [place] [address] October, [facility] [address] [id number] [address] [place] [address], [place] [address] October, [facility] [address] [id number] [address] [place] [address], [place] [address] 30 Sep, 2012 [facility] [address] [id number] [address] [place] [address], [place] [address] Sep, [facility] [address] [id number] [address] [place] [address], [place] [address] Sep, [facility] [address] [id number] [address] [place] [address], [place] [address] 18 Sep, 2012 [facility] [address] [id number] [address] [place] [address], [place] [address] 09 Sep, 2012 [facility] [address] [id number] [address] [place] [address], [place] [address] 26 Aug, 2012 [facility] [address] [id number] [address] [place] [address], [place] [address] 07 Aug, 2012 [facility] [address] [id number] [address] [place] [address], [place] [address] Aug, [facility] [address] [id number] [address] [place] [address], [place] [address] Jul, 2012 [facility] [address] [id number] [address] [place] [address], [place] [address] 20 Jul, 2012 [facility] [address] [id number] [address] [place] [address], [place] [address] Jul, 2012 [facility] [address] [id number] [address] [place] [address], [place] [address] 08 Jul, 2012 [facility] [address] [id number] [address] [place] [address], [place] [address] 06 Jul, 2012 [facility] [address] [id number] [address] [place] [address], [place] [address] 05 Jul, 2012 [facility] [address] [id number] [address] [place] [address], [place] [address] Jun, [facility] [address] [id number] [address] [place] [address], [place] [address] Apr, [facility] [address] [id number] [address] [place] [address], [place] [address] 16 Apr, 2012 [facility] [address] [id number] [address] [place] [address], [place] [address] Apr, [facility] [address] [id number] [address] [place] [address], [place] [address] Apr, [facility] [facility] [address] [id number] [address] [place] [address], [place] [address] Mar, [facility] [address] [id number] [address] [place] [address], [place] [address] Mar, [facility] [address] [id number] [address] [place] [address], [place] [address] Mar, [facility] [address] [id number] [address] [place] [address], [place] [address] Mar, [facility] [address] [id number] [address] [place] [address], [place] [address] Mar, [facility] [address] [id number] [address] [place] [address], [place] [address] Feb, [facility] [address] [id number] [address] [place] [address], [place] [address] Jan, [facility] [address] [id number] [address] [place] [address], [place] [address] Jan, [facility] [address] [id number] [address] [place] [address], [place] [address] Jan, [facility] [address] [id number] [address] [place] [address], [place] [address] Dec, [facility] [address] [id number] [address] [place] [address], [place] [address] Nov, [facility] [address] [id number] [address] [place] [address], [place] [address] Nov, [facility] [address] [id number] [address] [place] [address], [place] [address] Nov, [facility] [address] [id number] [address] [place] [address], [place] [address] Nov, [facility] [address] [id number] [address] [place] [address], [place] [address] Nov, [facility] [address] [id number] [address] [place] [address], [place] [address] October, [facility] [address] [id number] [address] [place] [address], [place] [address] October, [facility] [address] [id number] [address] [place] [address], [place] [address] October, [facility] [address] [id number] [address] [place] [address], [place] [address] October, [facility] [address] [id number] [address] [place] [address] October, IMMUNIZATIONS No Known Immunizations SOCIAL HISTORY Never Assessed REASON FOR VISIT [facility] [place] PLAN OF CARE VITAL SIGNS MEDICATIONS Medication Instructions Dosage Frequency Start Date End Date Duration S ashly [place] DSC 500 mg 1 tablet by Oral route 2 time s per day PRN Mar, Active ZyrTEC 10 mg 1 tablet by Oral route 1 time per day , 2014 Active zolpidem 10 mg take 1 tablet (10 mg) by oral route onc e daily at bedtime Jul, Active [place] 10-325 mg take 1 tablet by Ora l route 3 times per day as needed for pain PRN Aug, Active Omeprazole 40 mg take 1 capsule (40 m g) by oral route once daily before a meal Aug, Active Flonase 50 mcg/actuation spray 2 sprays in each nostril by INTRANASAL route 1 time per day October, Active Lisinopril 10 mg take 1 tablet by Oral route 1 time pe r day Take in am Jul, Active Voltaren by topical route Dec, A ctive RESULTS No Results PROCEDURES No Known procedures [...]
--- OUTSIDE RECORDS SUMMARY | 2020-01-25 07:54 | XMS REPORT ---
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 Active 41574014 Problem 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 Active 94667962 Problem Body mass index (BMI) of 40.0-44.9 in adult Z68.41 Active 710355476 Problem Mood disorder F39 Active 366915 05 Problem Unspecified kidney failure N19 Act chip 88450379 Problem Arthritis M19.90 Active 9048078 Problem BPV (benign positional vertigo), bilateral H81.13 Active 515306460 Problem Chronic kidney disease, stage 4 (severe) N18.4 Active 855167898 Problem Primary osteoarthritis of left knee M17.12 Active [id number] Problem Irritable bowel syndrome with both constipation and diarrh ea K58.2 Active 46451707 ALLERGIES No Information ENCOUNTERS Encounter Location Date Diagnosis [place] [address] [facility] [id number] [address] [place] [id number] 15 Sep, 2018 Arthritis M19.90 [facility] [address] [facility] [id number] [address] [place] [id number] 08 Sep, 2018 Renal insufficiency N28.9 an d Unspecified kidney failure N19 [facility] [address] [facility] [id number] [address] [place] [id number] 08 Sep, 2018 Renal insufficiency N28.9 an d Unspecified kidney failure N19 [place] [address] [facility] [id number] [address] [place] [id number] Sep, Arthritis M19.90 [facility] [address] [id number] [address] [place] [id number] Aug, Exercise counseling Z71.82 [facility] [address] [id number] [address] [place] [id number] Aug, [facility] [address] [id number] [address] [place] [id number] 27 Jul, 2018 Labyrinthitis of left ear H8 3.02 [facility] [address] [id number] [address] [place] [id number] 22 Jul, 2018 Labyrinthitis of left ear H8 3.02 [facility] [address] [facility] [id number] [address] [place] [id number] 19 Jul, 2018 Exercise counseling Z71.82 [place] [address] [facility] [id number] [address] [place] [id number] 18 Jul, 2018 [facility] [address] [facility] [id number] [address] [place] [id number] 14 Jul, 2018 Arthritis M19.90 [facility] [address] [facility] [id number] [address] [place] [id number] 13 Jul, 2018 Encounter for Medicare annua l wellness exam Z00.00 ; Chronic kidney disease, stage 4 (severe) N18.4 ; Body mass index (BMI) of 40.0-44.9 in adult Z68.41 ; Hyperparathyroidism E21.3 and BMI 40.0-44.9, adult Z68.41 [facility] [address] [facility] [id number] [address] [place] [id number] 13 Jul, 2018 Encounter for Medicare annua l wellness exam Z00.00 ; Chronic kidney disease, stage 4 (severe) N18.4 ; Hyperparathyroidism E21.3 ; Body mass index (BMI) of 40.0-44.9 in adult Z68.41 and Encounter for immunization Z23 [facility] [address] [facility] [id number] [address] [place] [id number] Jul, Tail bone pain M53.3 [facility] [address] [id number] [address] [place] [id number] Jun, Exercise counseling Z71.82 [facility] [address] [id number] [address] [place] [id number] Jun, Labyrinthitis of left ear H8 3.02 [facility] [address] [id number] [address] [place] [id number] Jun, Tail bone pain M53.3 ; Irrit able bowel syndrome with both constipation and diarrhea K58.2 and Dysfunction of left eustachian tube H69.82 [facility] [address] [id number] [address] [place] [id number] Jun, Exercise counseling Z71.82 [facility] [address] [id number] [address] [place] [id number] Jun, Arthritis M19.90 [facility] [address] [id number] [address] [place] [id number] Jun, Irritable bowel syndrome wit h both constipation and diarrhea K58.2 ; Tail bone pain M53.3 and Dysfunction of left eustachian tube H69.82 [facility] [address] [id number] [address] [place] [address] Jun, Exercise counseling Z71.82 [facility] [address] [id number] [address] [place] [id number] Jun, Exercise counseling Z71.82 [facility] [address] [id number] [address] [place] [address] Jun, Labyrinthitis of left ear H8 3.02 [facility] [address] [id number] [address] [place] [address] May, Exercise counseling Z71.82 [facility] [address] [id number] [address] [place] [address] May, Arthritis M19.90 [facility] [address] [id number] [address] [place] [address] May, Exercise counseling Z71.82 [facility] [address] [id number] [address] [place] [address] May, Exercise counseling Z71.82 [facility] [address] [id number] [address] [place] [id number] May, Labyrinthitis of left ear H8 3.02 [facility] [address] [id number] [address] [place] [address] May, Exercise counseling Z71.82 [facility] [address] [id number] [address] [place] [address] Apr, Arthritis M19.90 [facility] [address] [id number] [address] [place] [address] Apr, Exercise counseling Z71.82 [facility] [address] [id number] [address] [place] [address] Apr, Exercise counseling Z71.82 [facility] [address] [id number] [address] [place] [address] Apr, Primary osteoarthritis of le ft knee M17.12 [facility] [address] [id number] [address] [place] [address] Apr, Labyrinthitis of left ear H8 3.02 [facility] [address] [id number] [address] [place] [id number] Mar, Arthritis M19.90 [facility] [address] [id number] [address] [place] [phone] Mar, [place] [address] [facility] [id number] [address] [place] [id number] Mar, Chronic kidney disease, stag e 4 (severe) N18.4 [facility] [address] [facility] [id number] [address] [place] [id number] Mar, Chronic kidney disease, stag e 4 (severe) N18.4 [facility] [address] [facility] [id number] [address] [place] [address] Mar, Labyrinthitis of left ear H8 3.02 [facility] [address] [facility] [id number] [address] [place] [address] Mar, Chronic kidney disease, stag e 4 (severe) N18.4 ; Knee pain, left anterior M25.562 ; Deficiency of other specified B group vitamins E53.8 and Encounter for immunization Z23 [facility] [address] [facility] [id number] [address] [place] [address] Mar, Arthritis M19.90 [facility] [address] [facility] [id number] [address] [place] [id number] Feb, Labyrinthitis of left ear H8 3.02 [facility] [address] [facility] [id number] [address] [place] [address] Feb, Arthritis M19.90 [facility] [address] [facility] [id number] [address] [place] [address] Jan, Labyrinthitis of left ear H8 3.02 [facility] [address] [facility] [id number] [address] [place] [address] Jan, Arthritis M19.90 [facility] [address] [facility] [id number] [address] [place] [address] Dec, Labyrinthitis of left ear H8 3.02 [facility] [address] [facility] [id number] [address] [place] [address] Nov, Arthritis M19.90 [facility] [address] [facility] [id number] [address] [place] [address] Nov, Labyrinthitis of left ear H8 3.02 [facility] [address] [facility] [id number] [address] [place] [address] Nov, BMI 40.0-44.9, adult Z68.41 ; Chronic kidney disease, stage 4 (severe) N18.4 and Acute right-sided thoracic back pain M54.6 [facility] [address] [facility] [id number] [address] [place] [address] October, Labyrinthitis of left ear H8 3.02 and Arthritis M19.90 [facility] [address] [place] [id number] [address] [place] [address] Sep, BPV (benign positional verti go), bilateral H81.13 ; Dysfunction of left eustachian tube H69.82 and BMI 40.0-44.9, adult Z68.41 [facility] [address] [facility] [id number] [address] [place] [address] Sep, Labyrinthitis of left ear H8 3.02 and Arthritis M19.90 [facility] [address] [place] [id number] [address] [place] [address] Sep, [facility] [address] [id number] [address] [place] [address] Sep, [facility] [address] [facility] [id number] [address] [place] [address] Sep, Chronic kidney disease, stag e 4 (severe) N18.4 [facility] [address] [facility] [id number] [address] [place] [id number] Sep, Chronic kidney disease, stag e 4 (severe) N18.4 [facility] [address] [id number] [address] [place] [address] Aug, Labyrinthitis of left ear H8 3.02 and Arthritis M19.90 [facility] [address] [facility] [id number] [address] [place] [id number] Aug, [facility] [address] [id number] [address] [place] [id number] Jul, [facility] [address] [place] [id number] [address] [place] [address] Jul, Arthritis M19.90 and Labyrin thitis of left ear H83.02 [facility] [address] [place] [id number] [address] [place] [id number] 08 Jul, 2017 [facility] [address] [place] [id number] [address] [place] [address] Jun, [facility] [address] [place] [id number] [place] [address] Jun, Arthritis M19.90 and Labyrin thitis of left ear H83.02 [place] [address] [place] [id number] [place] [address] Jun, Pre-op evaluation Z01.818 ; BMI 40.0-44.9, adult Z68.41 and Encounter for immunization Z23 [place] [address] [address] May, Arthritis M19.90 and Labyrin thitis of left ear H83.02 [place] [address] [place] [id number] [address] [place] [address] Apr, Labyrinthitis of left ear H8 3.02 [place] [address] [place] [id number] [address] [place] [address] Apr, Arthritis M19.90 and Labyrin thitis of left ear H83.02 [place] [address] [place] [id number] [address] [place] [address] Mar, Arthritis M19.90 and Labyrin thitis of left ear H83.02 [place] [address] [place] [id number] [address] [place] [address] Mar, Chronic kidney disease, stag e 4 (severe) N18.4 [facility] [address] [place] [id number] [address] [place] [id number] 06 Feb, 2017 Arthritis M19.90 and Labyrin thitis of left ear H83.02 [facility] [address] [id number] [address] [place] [address] Jan, Labyrinthitis of left ear H8 3.02 and Deficiency of other specified B group vitamins E53.8 [facility] [address] [id number] [address] [place] [address] Dec, Arthritis M19.90 [facility] [address] [facility] [id number] [address] [place] [address] Dec, BPV (benign positional verti go), bilateral H81.13 [facility] [address] [facility] [id number] [address] [place] [address] Dec, [facility] [address] [facility] [id number] [address] [place] [address] Dec, [place] [address] [facility] [id number] [address] [place] [id number] Dec, [facility] [address] [facility] [id number] [address] [place] [address] Nov, Arthritis M19.90 and Deficie ncy of other specified B group vitamins E53.8 [facility] [address] [facility] [id number] [address] [place] [address] Nov, Arthritis M19.90 [facility] [address] [facility] [id number] [address] [place] [address] Nov, Hyperparathyroidism E21.3 [facility] [address] [facility] [id number] [address] [place] [address] October, [facility] [address] [facility] [id number] [address] [place] [address] October, Hyperparathyroidism E21.3 [facility] [address] [facility] [id number] [address] [place] [address] October, [facility] [address] [facility] [id number] [address] [place] [address] October, Renal insufficiency N28.9 an d Hyperparathyroidism E21.3 [facility] [address] [facility] [id number] [address] [place] [address] October, [facility] [address] [facility] [id number] [address] [place] [address] October, Renal insufficiency N28.9 an d Hyperparathyroidism E21.3 [facility] [address] [facility] [id number] [address] [place] [address] October, Arthritis M19.90 [facility] [address] [facility] [id number] [address] [place] [address] Sep, [facility] [address] [place] [id number] [place] [address] Sep, Lumbar neuritis M54.16 ; Tho racic abscess J86.9 and Deficiency of other specified B group vitamins E53.8 [facility] [address] [facility] [id number] [address] [place] [address] Sep, [facility] [address] [facility] [id number] [address] [place] [address] Aug, Arthritis M19.90 [facility] [address] [facility] [id number] [address] [place] [address] Aug, Hyperparathyroidism E21.3 [facility] [address] [place] [id number] [address] [place] [address] Aug, Hyperparathyroidism E21.3 [facility] [address] [facility] [id number] [address] [place] [address] Aug, Arthritis M19.90 [facility] [address] [facility] [id number] [address] [place] [address] Jul, Mass of throat R22.1 [facility] [address] [facility] [id number] [address] [place] [address] Jul, [facility] [address] [place] [id number] [address] [place] [address] Jul, Arthritis M19.90 [facility] [address] [facility] [id number] [address] [place] [address] Jun, Arthritis M19.90 [facility] [address] [facility] [id number] [address] [place] [address] Jun, [facility] [address] [facility] [id number] [address] [place] [address] Jun, Renal insufficiency N28.9 an d 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 [facility] [address] [facility] [id number] [address] [place] [id number] 05 Jun, 2016 Medicare welcome exam Z00.00 ; Encounter for immunization Z23 ; Arthritis M19.90 ; Medicare annual wellness visit, initial Z00.00 ; Medicare annual wellness visit, subsequent Z00.00 and Deficiency of other specified B group vitamins E53.8 [facility] [address] [facility] [id number] [address] [place] [id number] 29 May, 2016 Renal insufficiency N28.9 an d 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 [facility] [address] [facility] [id number] [address] [place] [address] 19 May, 2016 Renal insufficiency N28.9 [facility] [address] [facility] [id number] [address] [place] [id number] 16 May, 2016 Renal insufficiency N28.9 [facility] [address] [facility] [id number] [address] [place] [address] 14 May, 2016 [facility] [address] [facility] [id number] [address] [place] [address] Apr, [facility] [address] [facility] [id number] [address] [place] [address] Apr, [facility] [address] [facility] [id number] [address] [place] [id number] 14 Apr, 2016 Mass of throat R22.1 [facility] [address] [facility] [id number] [address] [place] [address] 10 Apr, 2016 [facility] [address] [id number] [address] [place] [id number] 10 Apr, 2016 Mass of throat R22.1 [facility] [address] [id number] [address] [place] [id number] 04 Apr, 2016 Mass of throat R22.1 [facility] [address] [id number] [address] [place] [address] Mar, [facility] [address] [id number] [address] [place] [address] Mar, [facility] [address] [id number] [address] [place] [address] Mar, [facility] [address] [facility] [id number] [address] [place] [id number] 24 Mar, 2016 Parathyroid abnormality E21. 5 and Encounter for immunization Z23 [facility] [address] [facility] [id number] [address] [place] [address] Mar, [facility] [address] [facility] [id number] [address] [place] [id number] Mar, [facility] [address] [facility] [id number] [address] [place] [address] 21 Feb, 2016 Renal insufficiency N28.9 an d Hyperparathyroidism E21.3 [facility] [address] [facility] [id number] [address] [place] [id number] 19 Feb, 2016 [facility] [address] [facility] [id number] [address] [place] [id number] 15 Feb, 2016 Renal insufficiency N28.9 an d Hyperparathyroidism E21.3 [facility] [address] [facility] [id number] [address] [place] [id number] 14 Feb, 2016 [facility] [address] [facility] [id number] [address] [place] [id number] 12 Feb, 2016 [facility] [address] [facility] [id number] [address] [place] [id number] 09 Feb, 2016 [facility] [address] [facility] [id number] [address] [place] [id number] Jan, [facility] [address] [facility] [id number] [address] [place] [address] Jan, Arthritis M19.90 ; Lumbago w ith sciatica, right side M54.41 and Other chronic pain G89.29 [facility] [address] [facility] [id number] [address] [place] [id number] Jan, [facility] [address] [facility] [id number] [address] [place] [address] Dec, Arthritis M19.90 ; Lumbago w ith sciatica, right side M54.41 and Other chronic pain G89.29 [facility] [address] [facility] [id number] [address] [place] [id number] 16 Nov, 2015 Deficiency of other specifie d B group vitamins E53.8 ; Primary insomnia F51.01 ; Mood disorder F39 and Lumbago with sciatica, right side M54.41 [facility] [address] [facility] [id number] [address] [place] [id number] Nov, Hyperparathyroidism E21.3 [place] [address] [facility] [id number] [address] [place] [id number] Nov, Unspecified kidney failure N 19 and Hyperparathyroidism E21.3 [place] [address] [facility] [id number] [address] [place] [id number] October, Hyperparathyroidism E21.3 [facility] [address] [facility] [id number] [address] [place] [id number] October, [place] [address] [facility] [id number] [address] [place] [id number] October, Hyperparathyroidism E21.3 [facility] [address] [facility] [id number] [address] [place] [id number] October, Hyperparathyroidism E21.3 [facility] [address] [place] [id number] [address] [place] [id number] Sep, Hyperparathyroidism E21.3 ; Hypercholesterolemia E78.0 and Arthritis M19.90 [facility] [address] [facility] [id number] [address] [place] [id number] Aug, [facility] [address] [facility] [id number] [address] [place] [id number] Aug, Deficiency of other specifie d B group vitamins E53.8 [facility] [address] [facility] [id number] [address] [place] [id number] Aug, [facility] [address] [place] [id number] [address] [place] [id number] Jul, Urinary frequency R35.0 [facility] [address] [place] [id number] [address] [place] [id number] Jul, Urinary frequency R35.0 [facility] [address] [place] [id number] [address] [place] [id number] Jul, [facility] [address] [place] [id number] [address] [place] [id number] Jul, [facility] [address] [place] [id number] [address] [place] [id number] Jun, Pain in left knee M25.562 [facility] [address] [place] [id number] [address] [place] [id number] Jun, [facility] [address] [place] [id number] [address] [place] [id number] May, Swelling of left knee joint M25.462 [facility] [address] [facility] [id number] [address] [place] [id number] May, [facility] [address] [place] [id number] [address] [place] [id number] May, [facility] [address] [place] [id number] [address] [place] [id number] May, [facility] [address] [place] [id number] [address] [place] [address] [id number] Apr, Renal insufficiency N28.9 an d Chronic kidney disease, stage 4 (severe) N18.4 [facility] [address] [facility] [id number] [address] [place] [id number] Apr, Unspecified kidney failure N 19 [facility] [address] [facility] [id number] [address] [place] [id number] Apr, Unspecified kidney failure N 19 [facility] [address] [facility] [id number] [place] [id number] Apr, [facility] [id number] [place] [id number] Apr, Hyperparathyroidism, unspeci fied 252.00 [facility] [address] [id number] [address] [place] [id number] Apr, [facility] [id number] [place] [id number] Mar, [facility] [address] [facility] [id number] [address] [place] [id number] Mar, [facility] [address] [id number] [address] [place] [address] Mar, Hyperparathyroidism, unspeci fied 252.00 [facility] [address] [facility] [id number] [address] [place] [id number] Feb, [facility] [address] [facility] [id number] [address] [place] [id number] Feb, Otalgia 388.70 [facility] [address] [facility] [id number] [address] [place] [id number] Feb, [facility] [address] [id number] [address] [place] [id number] Feb, [facility] [address] [id number] [address] [place] [id number] Jan, [facility] [address] [id number] [address] [place] [id number] Jan, Hyperparathyroidism, unspeci fied 252.00 [facility] [address] [id number] [address] [place] [id number] Jan, [facility] [address] [id number] [address] [place] [id number] Jan, Other B-complex deficiencies 266.2 and Hyperparathyroidism, unspecified 252.00 [facility] [address] [id number] [address] [place] [phone] Jan, [facility] [address] [id number] [address] [place] [id number] Jan, [facility] [address] [id number] [address] [place] [id number] Jan, [facility] [address] [id number] [address] [place] [phone] Dec, [facility] [address] [id number] [address] [place] [id number] Dec, [facility] [address] [id number] [address] [place] [id number] Dec, [facility] [address] [id number] [address] [place] [id number] Nov, Routine check-up V70.0 and P re-op exam V72.84 [facility] [address] [id number] [address] [place] [id number] Nov, [facility] [address] [id number] [address] [place] [id number] Nov, [facility] [address] [id number] [address] [place] [phone] October, [facility] [address] [id number] [address] [place] [id number] October, Other B-complex deficiencies 266.2 [facility] [address] [id number] [address] [place] [address], [place] [address] 12 Oct, 2014 [facility] [address] [id number] [address] [place] [address], [place] [address] 14 Sep, 2014 [facility] [address] [id number] [address] [place] [address], [place] [address] 13 Sep, 2014 [facility] [address] [id number] [address] [place] [address], [place] [address] 20 Aug, 2014 [facility] [address] [id number] [address] [place] [address], [place] [address] 20 Aug, 2014 [facility] [address] [id number] [address] [place] [address], [place] [address] 17 Aug, 2014 [facility] [address] [id number] [address] [place] [address], [place] [address] 17 Aug, 2014 [facility] [address] [id number] [address] [place] [address], [place] [address] Aug, [facility] [address] [id number] [address] [place] [address], [place] [address] 11 Aug, 2014 [facility] [address] [id number] [address] [place] [address], [place] [address] 18 Jul, 2014 [facility] [address] [id number] [address] [place] [address], [place] [address] 18 Jul, 2014 [facility] [address] [id number] [address] [place] [address], [place] [address] 17 Jul, 2014 [facility] [address] [id number] [address] [place] [address], [place] [address] 17 Jul, 2014 [facility] [address] [id number] [address] [place] [address], [place] [address] 12 Jul, 2014 [facility] [address] [id number] [address] [place] [id number] 12 Jul, 2014 [facility] [address] [id number] [address] [place] [id number] Jul, 2014 [facility] [address] [id number] [address] [place] [address], [place] [address] Jul, 2014 [facility] [address] [id number] [address] [place] [address], [place] [address] Jul, [facility] [address] [id number] [address] [place] [address], [place] [address] Jul, 2014 [facility] [address] [id number] [address] [place] [id number] Jul, 2014 [facility] [address] [id number] [address] [place] [address], [place] [address] Jul, 2014 [facility] [address] [id number] [address] [place] [address], [place] [address] Jul, [facility] [address] [id number] [address] [place] [id number] Jul, [facility] [address] [id number] [address] [place] [id number] Jun, [facility] [address] [id number] [address] [place] [id number] Jun, [facility] [address] [id number] [address] [place] [id number] Jun, [facility] [address] [id number] [address] [place] [id number] Jun, [facility] [address] [id number] [address] [place] [id number] Jun, [facility] [address] [id number] [address] [place] [id number] Jun, [facility] [address] [id number] [address] [place] [id number] Jun, [facility] [address] [id number] [address] [place] [id number] Jun, [facility] [address] [id number] [address] [place] [address], [place] [address] Jun, [facility] [address] [id number] [address] [place] [address], [place] [address] Jun, [facility] [address] [id number] [address] [place] [address], [place] [address] Jun, [facility] [address] [id number] [address] [place] [address], [place] [address] Jun, [facility] [address] [id number] [address] [place] [address], [place] [address] Jun, [facility] [address] [id number] [address] [place] [address], [place] [address] Jun, [facility] [address] [id number] [address] [place] [address], [place] [address] May, [facility] [address] [id number] [address] [place] [address], [place] [address] May, [facility] [address] [id number] [address] [place] [address], [place] [address] May, [facility] [address] [id number] [address] [place] [address], [place] [address] May, [facility] [address] [id number] [address] [place] [address], [place] [address] Apr, [facility] [address] [id number] [address] [place] [address], [place] [address] Apr, [facility] [address] [id number] [address] [place] [address], [place] [address] Apr, [facility] [address] [id number] [address] [place] [address], [place] [address] Apr, [facility] [address] [id number] [address] [place] [address], [place] [address] 13 Apr, 2014 [facility] [address] [id number] [address] [place] [address], [place] [address] Apr, [facility] [address] [id number] [address] [place] [address], [place] [address] Mar, [facility] [address] [id number] [address] [place] [address], [place] [address] Mar, [facility] [address] [id number] [address] [place] [address], [place] [address] Mar, [facility] [address] [id number] [address] [place] [address], [place] [address] Mar, [facility] [address] [id number] [address] [place] [address], [place] [address] Mar, [facility] [address] [id number] [address] [place] [address], [place] [address] Mar, [facility] [address] [id number] [address] [place] [address], [place] [address] Mar, [facility] [address] [id number] [address] [place] [address], [place] [address] Mar, [facility] [address] [id number] [address] [place] [address], [place] [address] Mar, [facility] [address] [id number] [address] [place] [id number] Mar, [facility] [address] [id number] [address] [place] [id number] Mar, [facility] [address] [id number] [address] [place] [id number] 07 Mar, 2014 [facility] [address] [id number] [address] [place] [address], [place] [address] Mar, [facility] [address] [id number] [address] [place] [id number] Feb, [facility] [address] [id number] [address] [place] [address], [place] [address] Feb, [facility] [address] [id number] [facility] [address] 23 Feb, 2013 [facility] [address] [id number] [address] [place] [address], [place] [address] 23 Feb, 2013 [facility] [address] [id number] [facility] [address] 19 Feb, 2013 [facility] [address] [id number] [address] [place] [address], [place] [address] 19 Feb, 2013 [facility] [address] [id number] [address] [place] [address], [place] [address] 13 Feb, 2013 [facility] [address] [id number] [address] [place] [address], [place] [address] 13 Feb, 2014 [facility] [address] [id number] [address] [place] [address], [place] [address] Feb, [facility] [address] [id number] [address] [place] [address], [place] [address] Feb, [facility] [address] [id number] [address] [place] [address], [place] [address] Jan, [facility] [address] [id number] [address] [place] [address], [place] [address] Jan, [facility] [address] [id number] [address] [place] [address], [place] [address] Dec, [facility] [address] [id number] [address] [place] [address], [place] [address] Dec, [facility] [address] [id number] [address] [place] [address], [place] [address] Dec, [facility] [address] [id number] [address] [place] [address], [place] [address] Dec, [facility] [address] [id number] [address] [place] [address], [place] [address] Dec, [facility] [address] [id number] [address] [place] [address], [place] [address] Dec, [facility] [address] [id number] [address] [place] [address], [place] [address] Nov, [facility] [address] [id number] [address] [place] [address], [place] [address] Nov, [facility] [address] [id number] [address] [place] [address], [place] [address] Nov, [facility] [address] [id number] [address] [place] [address], [place] [address] Nov, [facility] [address] [id number] [address] [place] [address], [place] [address] October, [facility] [address] [id number] [address] [place] [address], [place] [address] October, [facility] [address] [id number] [address] [place] [address], [place] [address] October, [facility] [address] [id number] [address] [place] [address], [place] [address] October, [facility] [address] [id number] [address] [place] [address], [place] [address] October, [facility] [address] [id number] [address] [place] [address], [place] [address] October, [facility] [address] [id number] [address] [place] [address], [place] [address] October, [facility] [address] [id number] [address] [place] [address], [place] [address] October, [facility] [address] [id number] [address] [place] [address], [place] [address] October, [facility] [address] [id number] [address] [place] [address], [place] [address] October, [facility] [address] [id number] [address] [place] [address], [place] [address] October, [facility] [address] [id number] [address] [place] [address], [place] [address] October, [facility] [address] [id number] [address] [address] October, [facility] [address] [id number] [address] [place] [address], [place] [address] October, [facility] [address] [id number] [address] [place] [address], [place] [address] October, [facility] [address] [id number] [address] [place] [address], [place] [address] October, [facility] [address] [id number] [address] [place] [address], [place] [address] Sep, [facility] [address] [id number] [address] [place] [address], [place] [address] Sep, [facility] [address] [id number] [address] [place] [address], [place] [address] Sep, [facility] [address] [id number] [address] [place] [address], [place] [address] Sep, [facility] [address] [id number] [address] [place] [address], [place] [address] Sep, [facility] [address] [id number] [address] [place] [address], [place] [address] Sep, [facility] [address] [id number] [address] [place] [address], [place] [address] Aug, [facility] [address] [id number] [address] [place] [address], [place] [address] Aug, [facility] [address] [id number] [address] [place] [address], [place] [address] Aug, [facility] [address] [id number] [address] [place] [address], [place] [address] Aug, [facility] [address] [id number] [address] [place] [address], [place] [address] Aug, [facility] [address] [id number] [address] [place] [address], [place] [address] Aug, [facility] [address] [id number] [address] [place] [address], [place] [address] Jul, [facility] [address] [id number] [address] [place] [address], [place] [address] Jul, [facility] [address] [id number] [address] [place] [address], [place] [address] Jul, [facility] [address] [id number] [address] [place] [address], [place] [address] Jul, [facility] [address] [id number] [address] [place] [address], [place] [address] Jun, [facility] [address] [id number] [address] [place] [address], [place] [address] Jun, [facility] [address] [id number] [address] [place] [address], [place] [address] May, [facility] [address] [id number] [address] [place] [address], [place] [address] May, [facility] [address] [id number] [address] [place] [address], [place] [address] May, [facility] [address] [id number] [address] [place] [address], [place] [address] May, [facility] [address] [id number] [address] [place] [address], [place] [address] May, [facility] [address] [id number] [address] [place] [address], [place] [address] Apr, [facility] [address] [id number] [address] [place] [address], [place] [address] Apr, [facility] [address] [id number] [address] [place] [address], [place] [address] 12 Apr, 2013 [facility] [address] [id number] [address] [place] [address], [place] [address] Apr, [facility] [address] [id number] [address] [place] [address], [place] [address] Apr, [facility] [address] [id number] [address] [place] [address], [place] [address] 04 Apr, 2013 [facility] [address] [id number] [address] [place] [address], [place] [address] 15 Mar, 2013 [facility] [address] [id number] [address] [place] [address], [place] [address] 15 Mar, 2013 [facility] [address] [id number] [address] [place] [address], [place] [address] 14 Mar, 2013 [facility] [address] [id number] [address] [place] [address], [place] [address] 14 Mar, 2013 [facility] [address] [id number] [address] [place] [address], [place] [address] Mar, [facility] [address] [id number] [address] [place] [address], [place] [address] Mar, [facility] [address] [id number] [address] [place] [address], [place] [address] 23 Feb, 2013 [facility] [address] [id number] [address] [place] [address], [place] [address] Feb, [facility] [address] [id number] [address] [place] [id number] Feb, [facility] [address] [id number] [address] [place] [id number] 30 Jan, 2013 [facility] [address] [id number] [address] [place] [address], [place] [address] Jan, [facility] [address] [id number] [address] [place] [address], [place] [address] Jan, [facility] [address] [id number] [address] [place] [address], [place] [address] 16 Jan, 2013 [facility] [address] [id number] [address] [place] [address], [place] [address] Jan, [facility] [address] [id number] [address] [place] [address], [place] [address] Jan, [facility] [address] [id number] [address] [place] [address], [place] [address] Dec, [facility] [address] [id number] [address] [place] [address], [place] [address] Dec, [facility] [address] [id number] [address] [place] [address], [place] [address] Dec, [facility] [address] [id number] [address] [place] [address], [place] [address] Dec, [facility] [address] [id number] [address] [place] [address], [place] [address] Dec, [facility] [address] [id number] [address] [place] [address], [place] [address] Dec, [facility] [address] [id number] [address] [place] [address], [place] [address] Nov, [facility] [address] [id number] [address] [place] [address], [place] [address] Nov, [facility] [address] [id number] [address] [place] [address], [place] [address] Nov, [facility] [address] [id number] [address] [place] [address], [place] [address] Nov, [facility] [address] [id number] [address] [place] [address], [place] [address] Nov, [facility] [address] [id number] [address] [place] [address], [place] [address] Nov, [facility] [address] [id number] [address] [place] [address], [place] [address] October, [facility] [address] [id number] [address] [place] [address], [place] [address] October, [facility] [address] [id number] [address] [place] [address], [place] [address] October, [facility] [address] [id number] [address] [place] [address], [place] [address] October, [facility] [address] [id number] [address] [place] [address], [place] [address] October, [facility] [address] [id number] [address] [place] [address], [place] [address] Sep, [facility] [address] [id number] [address] [place] [address], [place] [address] Sep, [facility] [address] [id number] [address] [place] [address], [place] [address] Sep, [facility] [address] [id number] [address] [place] [address], [place] [address] Sep, [facility] [address] [id number] [address] [place] [address], [place] [address] Sep, [facility] [address] [id number] [address] [place] [address], [place] [address] Aug, [facility] [address] [id number] [address] [place] [address], [place] [address] Aug, [facility] [address] [id number] [address] [place] [address], [place] [address] Aug, [facility] [address] [id number] [address] [place] [address], [place] [address] Jul, [facility] [address] [id number] [address] [place] [address], [place] [address] Jul, [facility] [address] [id number] [address] [place] [address], [place] [address] Jul, [facility] [address] [id number] [address] [place] [address], [place] [address] 08 Jul, 2012 [facility] [address] [id number] [address] [place] [address], [place] [id number] 06 Jul, 2012 [facility] [address] [id number] [address] [place] [address], [place] [address] Jul, [facility] [address] [id number] [address] [place] [address], [place] [address] Jun, [facility] [address] [id number] [address] [place] [address], [place] [address] Apr, [facility] [address] [id number] [address] [place] [address], [place] [address] Apr, [facility] [address] [id number] [address] [place] [address], [place] [address] Apr, [facility] [address] [id number] [address] [place] [address], [place] [address] Apr, [facility] [address] [id number] [address] [place] [address], [place] [address] Mar, [facility] [address] [id number] [address] [place] [address], [place] [address] Mar, [facility] [address] [id number] [address] [place] [address], [place] [address] Mar, [facility] [address] [id number] [address] [place] [address], [place] [address] Mar, [facility] [address] [id number] [address] [place] [address], [place] [address] Mar, [facility] [address] [id number] [address] [place] [id number] Feb, [facility] [address] [id number] [address] [place] [address], [place] [address] Jan, [facility] [address] [id number] [address] [place] [address], [place] [address] Jan, [facility] [address] [id number] [address] [place] [id number] Jan, [facility] [address] [id number] [address] [place] [id number] Dec, [facility] [address] [id number] [address] [place] [id number] Nov, [facility] [address] [id number] [address] [place] [id number] Nov, [facility] [address] [id number] [address] [place] [id number] Nov, [facility] [address] [id number] [address] [place] [id number] Nov, [facility] [address] [id number] [address] [place] [id number] Nov, [facility] [address] [id number] [address] [place] [id number] October, [facility] [address] [id number] [address] [place] [id number] October, [facility] [address] [id number] [address] [place] [id number] October, [facility] [address] [id number] [address] [place] [id number] October, [facility] [address] [id number] [address] [place] [id number] October, IMMUNIZATIONS No Known Immunizations SOCIAL HISTORY Never Assessed REASON FOR VISIT [facility] PLAN OF CARE VITAL SIGNS MEDICATIONS Unknown [...]
--- OUTSIDE RECORDS SUMMARY | 2020-01-25 07:55 | XMS REPORT ---
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 Active 03187019 Problem 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 Active 80071529 Problem Body mass index (BMI) of 40.0-44.9 in adult Z68.41 Active 213131912 Problem Mood disorder F39 Active 245279 05 Problem Unspecified kidney failure N19 Act chip 38978590 Problem Arthritis M19.90 Active 5751061 Problem BPV (benign positional vertigo), bilateral H81.13 Active 630975329 Problem Chronic kidney disease, stage 4 (severe) N18.4 Active 348309795 Problem Primary osteoarthritis of left knee M17.12 Active [id number] Problem Irritable bowel syndrome with both constipation and diarrh ea K58.2 Active [id number] ALLERGIES No Information ENCOUNTERS Encounter Location Date Diagnosis [place] [address] [facility] [id number] [address] [place] [phone] Sep, [place] [address] [facility] [id number] [address] [place] [phone] Sep, Renal insufficiency N28.9 an d Unspecified kidney failure N19 [place] [address] [address] [place] [id number] [address] [place] [address] Sep, Renal insufficiency N28.9 an d Unspecified kidney failure N19 [place] [address] [address] [facility] [id number] [address] [place] [phone] Sep, Arthritis M19.90 [facility] [address] [facility] [id number] [address] [place] [address] Aug, Exercise counseling Z71.82 [facility] [address] [id number] [address] [place] [phone] Aug, [facility] [address] [facility] [id number] [address] [place] [phone] 27 Jul, 2018 Labyrinthitis of left ear H8 3.02 [facility] [address] [id number] [address] [place] [phone] 22 Jul, 2018 Labyrinthitis of left ear H8 3.02 [facility] [address] [facility] [id number] [address] [place] [id number] 19 Jul, 2018 Exercise counseling Z71.82 [place] [address] [facility] [id number] [address] [place] [id number] 18 Jul, 2018 [place] [address] [facility] [id number] [address] [place] [phone] 14 Jul, 2018 Arthritis M19.90 [place] [address] [address] [facility] [id number] [address] [place] [id number] 13 Jul, 2018 Encounter for Medicare annua l wellness exam Z00.00 ; Chronic kidney disease, stage 4 (severe) N18.4 ; Body mass index (BMI) of 40.0-44.9 in adult Z68.41 ; Hyperparathyroidism E21.3 and BMI 40.0-44.9, adult Z68.41 [place] [address] [facility] [id number] [address] [place] [address] 13 Jul, 2018 Encounter for Medicare annua l wellness exam Z00.00 ; Chronic kidney disease, stage 4 (severe) N18.4 ; Hyperparathyroidism E21.3 ; Body mass index (BMI) of 40.0-44.9 in adult Z68.41 and Encounter for immunization Z23 [facility] [address] [facility] [id number] [address] [place] [phone] Jul, Tail bone pain M53.3 [facility] [address] [id number] [address] [place] [phone] Jun, Exercise counseling Z71.82 [facility] [address] [id number] [address] [place] [id number] Jun, Labyrinthitis of left ear H8 3.02 [facility] [address] [id number] [address] [place] [phone] Jun, Tail bone pain M53.3 ; Irrit able bowel syndrome with both constipation and diarrhea K58.2 and Dysfunction of left eustachian tube H69.82 [facility] [address] [id number] [address] [place] [id number] Jun, Exercise counseling Z71.82 [facility] [address] [id number] [address] [place] [address] Jun, Arthritis M19.90 [facility] [address] [id number] [address] [place] [id number] Jun, Irritable bowel syndrome wit h both constipation and diarrhea K58.2 ; Tail bone pain M53.3 and Dysfunction of left eustachian tube H69.82 [facility] [address] [id number] [address] [place] [phone] Jun, Exercise counseling Z71.82 [facility] [address] [id number] [address] [place] [phone] Jun, Exercise counseling Z71.82 [facility] [address] [id number] [address] [place] [phone] Jun, Labyrinthitis of left ear H8 3.02 [facility] [address] [id number] [address] [place] [id number] May, Exercise counseling Z71.82 [facility] [address] [id number] [address] [place] [phone] May, Arthritis M19.90 [place] [address] [id number] [address] [place] [address] May, Exercise counseling Z71.82 [facility] [address] [id number] [address] [place] [address] May, Exercise counseling Z71.82 [facility] [address] [id number] [address] [place] [phone] May, Labyrinthitis of left ear H8 3.02 [facility] [address] [id number] [address] [place] [address] May, Exercise counseling Z71.82 [facility] [address] [id number] [address] [place] [address] Apr, Arthritis M19.90 [facility] [address] [id number] [address] [place] [address] Apr, Exercise counseling Z71.82 [facility] [address] [id number] [address] [place] [address] Apr, Exercise counseling Z71.82 [facility] [address] [id number] [address] [place] [phone] Apr, Primary osteoarthritis of le ft knee M17.12 [facility] [address] [id number] [address] [place] [id number] Apr, Labyrinthitis of left ear H8 3.02 [facility] [address] [id number] [address] [place] [id number] Mar, Arthritis M19.90 [facility] [address] [id number] [address] [place] [phone] Mar, [facility] [address] [facility] [id number] [address] [place] [phone] Mar, Chronic kidney disease, stag e 4 (severe) N18.4 [facility] [address] [id number] [address] [place] [id number] Mar, Chronic kidney disease, stag e 4 (severe) N18.4 [facility] [address] [facility] [id number] [address] [place] [id number] Mar, Labyrinthitis of left ear H8 3.02 [facility] [address] [facility] [id number] [address] [place] [phone] Mar, Chronic kidney disease, stag e 4 (severe) N18.4 ; Knee pain, left anterior M25.562 ; Deficiency of other specified B group vitamins E53.8 and Encounter for immunization Z23 [facility] [address] [facility] [id number] [address] [place] [phone] Mar, Arthritis M19.90 [facility] [address] [facility] [id number] [address] [place] [phone] Feb, Labyrinthitis of left ear H8 3.02 [facility] [address] [place] [id number] [address] [place] [phone] Feb, Arthritis M19.90 [facility] [address] [facility] [id number] [address] [place] [phone] Jan, Labyrinthitis of left ear H8 3.02 [facility] [address] [facility] [id number] [address] [place] [phone] Jan, Arthritis M19.90 [facility] [address] [facility] [id number] [address] [place] [address] Dec, Labyrinthitis of left ear H8 3.02 [facility] [address] [facility] [id number] [address] [place] [address] Nov, Arthritis M19.90 [facility] [address] [facility] [id number] [address] [place] [phone] Nov, Labyrinthitis of left ear H8 3.02 [facility] [address] [facility] [id number] [address] [place] [address] Nov, BMI 40.0-44.9, adult Z68.41 ; Chronic kidney disease, stage 4 (severe) N18.4 and Acute right-sided thoracic back pain M54.6 [facility] [address] [place] [id number] [address] [place] [phone] October, Labyrinthitis of left ear H8 3.02 and Arthritis M19.90 [facility] [address] [place] [id number] [address] [place] [address] Sep, BPV (benign positional verti go), bilateral H81.13 ; Dysfunction of left eustachian tube H69.82 and BMI 40.0-44.9, adult Z68.41 [place] [address] [place] [id number] [place] [address] Sep, Labyrinthitis of left ear H8 3.02 and Arthritis M19.90 [place] [address] [place] [id number] [address] [place] [phone] Sep, [place] [address] [place] [id number] [address] [place] [phone] Sep, [place] [address] [place] [id number] [address] [place] [phone] Sep, Chronic kidney disease, stag e 4 (severe) N18.4 [facility] [address] [place] [id number] [address] [place] [phone] Sep, Chronic kidney disease, stag e 4 (severe) N18.4 [facility] [address] [facility] [id number] [address] [place] [id number] Aug, Labyrinthitis of left ear H8 3.02 and Arthritis M19.90 [facility] [address] [facility] [id number] [address] [place] [phone] Aug, [facility] [address] [facility] [id number] [address] [place] [phone] Jul, [facility] [address] [place] [id number] [address] [place] [address] Jul, Arthritis M19.90 and Labyrin thitis of left ear H83.02 [facility] [address] [facility] [id number] [address] [place] [phone] Jul, [facility] [address] [facility] [id number] [address] [place] [phone] Jun, [facility] [address] [facility] [id number] [address] [place] [phone] Jun, Arthritis M19.90 and Labyrin thitis of left ear H83.02 [place] [address] [address] [facility] [id number] [address] [place] [phone] Jun, Pre-op evaluation Z01.818 ; BMI 40.0-44.9, adult Z68.41 and Encounter for immunization Z23 [place] [address] [address] [facility] [id number] [address] [place] [phone] May, Arthritis M19.90 and Labyrin thitis of left ear H83.02 [place] [address] [facility] [id number] [address] [place] [phone] Apr, Labyrinthitis of left ear H8 3.02 [place] [address] [facility] [id number] [address] [place] [address] Apr, Arthritis M19.90 and Labyrin thitis of left ear H83.02 [place] [address] [facility] [id number] [address] [place] [phone] Mar, Arthritis M19.90 and Labyrin thitis of left ear H83.02 [place] [address] [facility] [id number] [address] [place] [phone] 05 Mar, 2017 Chronic kidney disease, stag e 4 (severe) N18.4 [facility] [address] [facility] [id number] [address] [place] [phone] 06 Feb, 2017 Arthritis M19.90 and Labyrin thitis of left ear H83.02 [place] [address] [facility] [id number] [address] [place] [phone] Jan, Labyrinthitis of left ear H8 3.02 and Deficiency of other specified B group vitamins E53.8 [facility] [address] [facility] [id number] [address] [place] [id number] Dec, Arthritis M19.90 [facility] [address] [facility] [id number] [address] [place] [phone] Dec, BPV (benign positional verti go), bilateral H81.13 [facility] [address] [facility] [id number] [address] [place] [phone] Dec, [facility] [address] [facility] [id number] [address] [place] [id number] Dec, [facility] [address] [place] [id number] [address] [place] [phone] Dec, [facility] [address] [facility] [id number] [address] [place] [address] Nov, Arthritis M19.90 and Deficie ncy of other specified B group vitamins E53.8 [facility] [address] [facility] [id number] [address] [place] [phone] Nov, Arthritis M19.90 [facility] [address] [facility] [id number] [address] [place] [phone] Nov, Hyperparathyroidism E21.3 [facility] [address] [facility] [id number] [address] [place] [phone] October, [facility] [address] [facility] [id number] [address] [place] [phone] October, Hyperparathyroidism E21.3 [facility] [address] [facility] [id number] [address] [place] [id number] October, [facility] [address] [facility] [id number] [address] [place] [phone] October, Renal insufficiency N28.9 an d Hyperparathyroidism E21.3 [facility] [address] [facility] [id number] [address] [place] [phone] October, [facility] [address] [address] October, Renal insufficiency N28.9 an d Hyperparathyroidism E21.3 [facility] [address] [facility] [id number] [address] [place] [address] October, Arthritis M19.90 [facility] [address] [facility] [id number] [address] [place] [address] Sep, [facility] [address] [place] [id number] [address] [place] [id number] Sep, Lumbar neuritis M54.16 ; Tho racic abscess J86.9 and Deficiency of other specified B group vitamins E53.8 [facility] [address] [facility] [id number] [address] [place] [address] Sep, [facility] [address] [facility] [id number] [address] [place] [address] Aug, Arthritis M19.90 [facility] [address] [place] [id number] [address] [place] [address] Aug, Hyperparathyroidism E21.3 [facility] [address] [place] [id number] [address] [place] [phone] Aug, Hyperparathyroidism E21.3 [facility] [address] [place] [id number] [address] [place] [address] Aug, Arthritis M19.90 [facility] [address] [place] [id number] [address] [place] [address] Jul, Mass of throat R22.1 [facility] [address] [place] [id number] [address] [place] [phone] Jul, [facility] [address] [place] [id number] [address] [place] [address] Jul, Arthritis M19.90 [facility] [address] [id number] [address] [place] [address] Jun, Arthritis M19.90 [facility] [address] [facility] [id number] [address] [place] [address] Jun, [facility] [address] [facility] [id number] [address] [place] [address] Jun, Renal insufficiency N28.9 an d 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 [facility] [address] [facility] [id number] [address] [place] [phone] 05 Jun, 2016 Medicare welcome exam Z00.00 ; Encounter for immunization Z23 ; Arthritis M19.90 ; Medicare annual wellness visit, initial Z00.00 ; Medicare annual wellness visit, subsequent Z00.00 and Deficiency of other specified B group vitamins E53.8 [facility] [address] [facility] [id number] [address] [place] [phone] 29 May, 2016 Renal insufficiency N28.9 an d 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 [facility] [address] [id number] [address] [place] [id number] 19 May, 2016 Renal insufficiency N28.9 [facility] [address] [facility] [id number] [address] [place] [phone] 16 May, 2016 Renal insufficiency N28.9 [facility] [address] [facility] [id number] [address] [place] [id number] 14 May, 2016 [facility] [address] [facility] [id number] [address] [place] [phone] Apr, [facility] [address] [facility] [id number] [address] [place] [phone] Apr, [facility] [address] [facility] [id number] [address] [place] [id number] 14 Apr, 2016 Mass of throat R22.1 [facility] [address] [facility] [id number] [address] [place] [phone] 10 Apr, 2016 [facility] [address] [id number] [address] [place] [id number] 10 Apr, 2016 Mass of throat R22.1 [facility] [address] [id number] [address] [place] [phone] 04 Apr, 2016 Mass of throat R22.1 [facility] [address] [id number] [address] [place] [phone] Mar, [facility] [address] [id number] [address] [place] [phone] Mar, [facility] [address] [id number] [address] [place] [phone] Mar, [facility] [address] [id number] [address] [place] [phone] 24 Mar, 2016 Parathyroid abnormality E21. 5 and Encounter for immunization Z23 [facility] [address] [id number] [address] [place] [phone] Mar, [facility] [address] [id number] [address] [place] [phone] Mar, [facility] [address] [id number] [address] [place] [phone] 21 Feb, 2016 Renal insufficiency N28.9 an d Hyperparathyroidism E21.3 [facility] [address] [id number] [address] [place] [phone] 19 Feb, 2016 [facility] [address] [id number] [address] [place] [phone] 15 Feb, 2016 Renal insufficiency N28.9 an d Hyperparathyroidism E21.3 [facility] [address] [id number] [address] [place] [id number] 14 Feb, 2016 [facility] [address] [facility] [id number] [address] [place] [id number] 12 Feb, 2016 [facility] [address] [facility] [id number] [address] [place] [id number] 09 Feb, 2016 [facility] [address] [facility] [id number] [address] [place] [phone] Jan, [facility] [address] [facility] [id number] [address] [place] [address] Jan, Arthritis M19.90 ; Lumbago w ith sciatica, right side M54.41 and Other chronic pain G89.29 [facility] [address] [facility] [id number] [address] [place] [phone] Jan, [place] [address] [place] [id number] [address] [place] [address] Dec, Arthritis M19.90 ; Lumbago w ith sciatica, right side M54.41 and Other chronic pain G89.29 [place] [address] [place] [id number] [address] [place] [address] Nov, Deficiency of other specifie d B group vitamins E53.8 ; Primary insomnia F51.01 ; Mood disorder F39 and Lumbago with sciatica, right side M54.41 [place] [address] [facility] [id number] [address] [place] [phone] Nov, Hyperparathyroidism E21.3 [place] [address] [place] [id number] [address] [place] [address] Nov, Unspecified kidney failure N 19 and Hyperparathyroidism E21.3 [place] [address] [place] [id number] [address] [place] [address] October, Hyperparathyroidism E21.3 [place] [address] [place] [id number] [address] [place] [address] October, [place] [address] [facility] [id number] [address] [place] [phone] October, Hyperparathyroidism E21.3 [place] [address] [place] [id number] [address] [place] [phone] October, Hyperparathyroidism E21.3 [place] [address] [place] [id number] [address] [place] [address] Sep, Hyperparathyroidism E21.3 ; Hypercholesterolemia E78.0 and Arthritis M19.90 [facility] [address] [facility] [id number] [address] [place] [phone] Aug, [facility] [address] [place] [id number] [address] [place] [phone] Aug, Deficiency of other specifie d B group vitamins E53.8 [facility] [address] [place] [id number] [address] [place] [phone] Aug, [facility] [address] [place] [id number] [place] [id number] Jul, Urinary frequency R35.0 [facility] [address] [facility] [id number] [address] [place] [phone] Jul, Urinary frequency R35.0 [facility] [address] [place] [id number] [place] [phone] Jul, [facility] [address] [place] [id number] [address] [place] [id number] Jul, [facility] [address] [place] [id number] [place] [phone] Jun, Pain in left knee M25.562 [facility] [address] [place] [id number] [place] [id number] Jun, [facility] [address] [place] [id number] [place] [phone] May, Swelling of left knee joint M25.462 [facility] [address] [place] [id number] [place] [phone] May, [facility] [address] [place] [id number] [place] [phone] May, [facility] [address] [place] [id number] [place] [phone] May, [facility] [address] [place] [id number] [place] [phone] Apr, Renal insufficiency N28.9 an d Chronic kidney disease, stage 4 (severe) N18.4 [facility] [address] [facility] [id number] [address] [place] [id number] Apr, Unspecified kidney failure N 19 [facility] [address] [facility] [id number] [address] [place] [id number] Apr, Unspecified kidney failure N 19 [facility] [address] [facility] [id number] [address] [place] [id number] Apr, [facility] [address] [facility] [id number] [address] [place] [address] Apr, Hyperparathyroidism, unspeci fied 252.00 [facility] [address] [facility] [id number] [address] [place] [address] Apr, [facility] [address] [facility] [id number] [address] [place] [address] Mar, [facility] [address] [id number] [address] [place] [address] Mar, [facility] [address] [facility] [id number] [address] [place] [address] Mar, Hyperparathyroidism, unspeci fied 252.00 [facility] [address] [facility] [id number] [address] [place] [address] Feb, [facility] [address] [facility] [id number] [address] [place] [address] Feb, Otalgia 388.70 [facility] [address] [facility] [id number] [address] [place] [address] Feb, [facility] [address] [facility] [id number] [address] [place] [address] Feb, [facility] [address] [facility] [id number] [address] [place] [address] Jan, [facility] [address] [id number] [address] [place] [address] Jan, Hyperparathyroidism, unspeci fied 252.00 [facility] [address] [id number] [address] [place] [address] Jan, [facility] [address] [id number] [address] [place] [address] Jan, Other B-complex deficiencies 266.2 and Hyperparathyroidism, unspecified 252.00 [facility] [address] [id number] [address] [place] [address] Jan, [facility] [address] [id number] [address] [place] [id number] Jan, [facility] [address] [id number] [address] [place] [address] Jan, [facility] [address] [id number] [address] [place] [address] Dec, [facility] [address] [id number] [address] [place] [address] Dec, [facility] [address] [id number] [address] [place] [address] Dec, [facility] [address] [id number] [address] [place] [address] Nov, Routine check-up V70.0 and P re-op exam V72.84 [facility] [address] [id number] [address] [place] [address] Nov, [facility] [address] [id number] [address] [place] [id number] Nov, [facility] [address] [id number] [address] [place] [address] October, [facility] [address] [id number] [address] [place] [address] October, Other B-complex deficiencies 266.2 [facility] [address] [id number] [address] [place] [address], [place] [address] 12 Oct, 2014 [facility] [address] [id number] [address] [place] [address], [place] [address] 14 Sep, 2014 [facility] [address] [id number] [address] [place] [address], [place] [address] 13 Sep, 2014 [facility] [address] [id number] [address] [place] [address], [place] [address] 20 Aug, 2014 [facility] [address] [id number] [address] [place] [address], [place] [address] 20 Aug, 2014 [facility] [address] [id number] [address] [place] [address], [place] [address] 17 Aug, 2014 [facility] [address] [id number] [address] [place] [address], [place] [address] 17 Aug, 2014 [facility] [address] [id number] [address] [place] [address], [place] [address] 11 Aug, 2014 [facility] [address] [id number] [address] [place] [address], [place] [address] 11 Aug, 2014 [facility] [address] [id number] [address] [place] [address], [place] [address] 18 Jul, 2014 [facility] [address] [id number] [address] [place] [address], [place] [address] 18 Jul, 2014 [facility] [address] [id number] [address] [place] [address], [place] [address] 17 Jul, 2014 [facility] [address] [id number] [address] [place] [address], [place] [address] 17 Jul, 2014 [facility] [address] [id number] [address] [place] [address], [place] [address] 12 Jul, 2014 [facility] [address] [id number] [address] [place] [address], [place] [address] 12 Jul, 2014 [facility] [address] [id number] [address] [place] [address], [place] [address] 10 Jul, 2014 [facility] [address] [id number] [address] [place] [address], [place] [address] Jul, 2014 [facility] [address] [id number] [address] [place] [address], [place] [address] Jul, [facility] [address] [id number] [address] [place] [address], [place] [address] Jul, 2014 [facility] [address] [id number] [address] [place] [address], [place] [address] Jul, 2014 [facility] [address] [id number] [address] [place] [address], [place] [address] Jul, [facility] [address] [id number] [address] [place] [address], [place] [address] Jul, [facility] [address] [id number] [address] [place] [address], [place] [address] Jul, [facility] [address] [id number] [address] [place] [address], [place] [address] Jun, [facility] [address] [id number] [address] [place] [address], [place] [address] Jun, [facility] [address] [id number] [address] [place] [address], [place] [address] Jun, [facility] [address] [id number] [address] [place] [address], [place] [address] Jun, [facility] [address] [id number] [address] [place] [address], [place] [address] Jun, [facility] [address] [id number] [address] [place] [address], [place] [address] Jun, [facility] [address] [id number] [address] [place] [address], [place] [address] Jun, [facility] [address] [id number] [address] [place] [address], [place] [address] Jun, [facility] [address] [id number] [address] [place] [address], [place] [address] Jun, [facility] [address] [id number] [address] [place] [address], [place] [address] Jun, [facility] [address] [id number] [address] [place] [address], [place] [address] Jun, [facility] [address] [id number] [address] [place] [address], [place] [address] Jun, [facility] [address] [id number] [address] [place] [address], [place] [address] Jun, [facility] [address] [id number] [address] [place] [address], [place] [address] Jun, [facility] [address] [id number] [address] [place] [address], [place] [address] May, [facility] [address] [id number] [address] [place] [address], [place] [address] May, [facility] [address] [id number] [address] [place] [address], [place] [address] May, [facility] [address] [id number] [address] [place] [address], [place] [address] May, [facility] [address] [id number] [address] [place] [address], [place] [address] Apr, [facility] [address] [id number] [address] [place] [address], [place] [address] Apr, [facility] [address] [id number] [address] [place] [address], [place] [address] Apr, [facility] [address] [id number] [address] [place] [address], [place] [address] Apr, [facility] [address] [id number] [address] [place] [address], [place] [address] Apr, [facility] [address] [id number] [address] [place] [address], [place] [address] Apr, [facility] [address] [id number] [address] [place] [address], [place] [address] Mar, [facility] [address] [id number] [address] [place] [address], [place] [address] Mar, [facility] [address] [id number] [address] [place] [address], [place] [address] Mar, [facility] [address] [id number] [address] [place] [address], [place] [address] Mar, [facility] [address] [id number] [address] [place] [address], [place] [address] Mar, [facility] [address] [id number] [address] [place] [address], [place] [address] Mar, [facility] [address] [id number] [address] [place] [address], [place] [address] Mar, [facility] [address] [id number] [address] [place] [address], [place] [address] Mar, [facility] [address] [id number] [address] [place] [address], [place] [address] Mar, [facility] [address] [id number] [address] [place] [address] Mar, [facility] [address] [id number] [address] [place] [address] Mar, [facility] [address] [id number] [address] [place] [address] Mar, [facility] [address] [id number] [address] [place] [address], [place] [address] Mar, [facility] [address] [id number] [address] [place] [address] Feb, [facility] [address] [id number] [address] [place] [address] Feb, [facility] [address] [id number] [address] [place] [address] 23 Feb, 2013 [facility] [address] [id number] [address] [place] [address], [place] [address] 23 Feb, 2013 [facility] [address] [id number] [address] [place] [address], [place] [address] 19 Feb, 2014 [facility] [address] [id number] [address] [place] [address], [place] [address] 19 Feb, 2014 [facility] [address] [id number] [address] [place] [address], [place] [address] 13 Feb, 2014 [facility] [address] [id number] [address] [place] [address], [place] [address] 13 Feb, 2014 [facility] [address] [id number] [address] [place] [address], [place] [address] Feb, [facility] [address] [id number] [address] [place] [address], [place] [address] Feb, [facility] [address] [id number] [address] [place] [address], [place] [address] Jan, [facility] [address] [id number] [address] [place] [address], [place] [address] Jan, [facility] [address] [id number] [address] [place] [address], [place] [address] Dec, [facility] [address] [id number] [address] [place] [address], [place] [address] Dec, [facility] [address] [id number] [address] [place] [address], [place] [address] Dec, [facility] [address] [id number] [address] [place] [address], [place] [address] Dec, [facility] [address] [id number] [address] [place] [address], [place] [address] Dec, [facility] [address] [id number] [address] [place] [address], [place] [address] Dec, [facility] [address] [id number] [facility] [address] Nov, [facility] [address] [id number] [facility] [address] Nov, [facility] [address] [id number] [facility] [address] Nov, [facility] [address] [id number] [facility] [address] Nov, [facility] [address] [id number] [facility] [address] October, [facility] [address] [id number] [address] [place] [address], [place] [address] October, [facility] [address] [id number] [address] [place] [address], [place] [address] October, [facility] [address] [id number] [address] [place] [address], [place] [address] October, [facility] [address] [id number] [address] [place] [address], [place] [address] October, [facility] [address] [id number] [address] [place] [address], [place] [address] October, [facility] [address] [id number] [address] [place] [address], [place] [address] October, [facility] [address] [id number] [address] [place] [address], [place] [address] October, [facility] [address] [id number] [address] [place] [address], [place] [address] October, [facility] [address] [id number] [address] [place] [address], [place] [address] October, [facility] [address] [id number] [address] [place] [address], [place] [address] October, [facility] [address] [id number] [address] [place] [address], [place] [address] October, [facility] [address] [id number] [facility] [address] October, [facility] [address] [id number] [facility] [address] October, [facility] [address] [id number] [address] [place] [address], [place] [address] October, [facility] [address] [id number] [address] [place] [address], [place] [address] October, [facility] [address] [id number] [address] [place] [address], [place] [address] Sep, [facility] [address] [id number] [address] [place] [address], [place] [address] Sep, [facility] [address] [id number] [address] [place] [address], [place] [address] Sep, [facility] [address] [id number] [address] [place] [address], [place] [address] Sep, [facility] [address] [id number] [address] [place] [address], [place] [address] Sep, [facility] [address] [id number] [address] [place] [address], [place] [address] Sep, [facility] [address] [id number] [address] [place] [address], [place] [address] Aug, [facility] [address] [id number] [address] [place] [address], [place] [address] Aug, [facility] [address] [id number] [address] [place] [address], [place] [address] Aug, [facility] [address] [id number] [address] [place] [address], [place] [address] Aug, [facility] [address] [id number] [address] [place] [address], [place] [address] Aug, [facility] [address] [id number] [address] [place] [address], [place] [address] Aug, [facility] [address] [id number] [address] [place] [address], [place] [address] Jul, [facility] [address] [id number] [address] [place] [address], [place] [address] Jul, [facility] [address] [id number] [address] [place] [address], [place] [address] Jul, [facility] [address] [id number] [address] [place] [address], [place] [address] Jul, [facility] [address] [id number] [address] [place] [address], [place] [address] Jun, [facility] [address] [id number] [address] [place] [address], [place] [address] Jun, [facility] [address] [id number] [address] [place] [address], [place] [address] May, [facility] [address] [id number] [address] [place] [address], [place] [address] May, [facility] [address] [id number] [address] [place] [address], [place] [address] May, [facility] [address] [id number] [address] [place] [address], [place] [address] May, [facility] [address] [id number] [address] [place] [address], [place] [address] May, [facility] [address] [id number] [address] [place] [address], [place] [address] Apr, [facility] [address] [id number] [address] [place] [address], [place] [address] Apr, [facility] [address] [id number] [address] [place] [address], [place] [address] Apr, [facility] [address] [id number] [address] [place] [address], [place] [address] Apr, [facility] [address] [id number] [address] [place] [address], [place] [address] 04 Apr, 2013 [facility] [address] [id number] [address] [place] [address], [place] [address] 04 Apr, 2013 [facility] [address] [id number] [address] [place] [address], [place] [address] 15 Mar, 2013 [facility] [address] [id number] [address] [place] [address], [place] [address] 15 Mar, 2013 [facility] [address] [id number] [address] [place] [address], [place] [address] 14 Mar, 2013 [facility] [address] [id number] [address] [place] [address], [place] [address] 14 Mar, 2013 [facility] [address] [id number] [address] [place] [address], [place] [address] 11 Mar, 2013 [facility] [address] [id number] [address] [place] [address], [place] [address] Mar, [facility] [address] [id number] [address] [place] [address], [place] [address] 23 Feb, 2013 [facility] [address] [id number] [address] [place] [address] 19 Feb, 2013 [facility] [address] [id number] [address] [place] [address] Feb, [facility] [address] [id number] [address] [place] [address] 30 Jan, 2013 [facility] [address] [id number] [address] [place] [address], [place] [address] Jan, [facility] [address] [id number] [address] [place] [address], [place] [address] Jan, [facility] [address] [id number] [address] [place] [address] 16 Jan, 2013 [facility] [address] [id number] [address] [place] [address] Jan, [facility] [address] [id number] [address] [place] [address], [place] [address] Jan, [facility] [address] [id number] [address] [place] [address], [place] [address] Dec, [facility] [address] [id number] [address] [place] [address], [place] [address] Dec, [facility] [address] [id number] [address] [place] [address], [place] [address] Dec, [facility] [address] [id number] [address] [place] [address], [place] [address] Dec, [facility] [address] [id number] [address] [place] [address], [place] [address] Dec, [facility] [address] [id number] [address] [place] [address], [place] [address] Dec, [facility] [address] [id number] [address] [place] [address], [place] [address] Nov, [facility] [address] [id number] [address] [place] [address], [place] [address] Nov, [facility] [address] [id number] [address] [place] [address], [place] [address] Nov, [facility] [address] [id number] [address] [place] [address], [place] [address] Nov, [facility] [address] [id number] [address] [place] [address], [place] [address] Nov, [facility] [address] [id number] [address] [place] [address], [place] [address] Nov, [facility] [address] [id number] [address] [place] [address], [place] [address] October, [facility] [address] [id number] [address] [place] [address], [place] [address] October, [facility] [address] [id number] [address] [place] [address], [place] [address] October, [facility] [address] [id number] [address] [place] [address], [place] [address] October, [facility] [address] [id number] [address] [place] [address], [place] [address] October, [facility] [address] [id number] [address] [place] [address], [place] [address] 30 Sep, 2012 [facility] [address] [id number] [address] [place] [address], [place] [address] Sep, [facility] [address] [id number] [address] [place] [address], [place] [address] Sep, [facility] [address] [id number] [address] [place] [address], [place] [address] 18 Sep, 2012 [facility] [address] [id number] [address] [place] [address], [place] [address] Sep, [facility] [address] [id number] [address] [place] [address], [place] [address] Aug, [facility] [address] [id number] [address] [place] [address], [place] [address] Aug, [facility] [address] [id number] [address] [place] [address], [place] [address] Aug, [facility] [address] [id number] [address] [place] [address], [place] [address] Jul, [facility] [address] [id number] [address] [place] [address], [place] [address] Jul, [facility] [address] [id number] [address] [place] [address], [place] [address] Jul, [facility] [address] [id number] [address] [place] [address], [place] [address] 08 Jul, 2012 [facility] [address] [id number] [address] [place] [address], [place] [address] Jul, [facility] [address] [id number] [address] [place] [address], [place] [address] Jul, [facility] [address] [id number] [address] [place] [id number] Jun, [facility] [address] [id number] [address] [place] [address], [place] [address] Apr, [facility] [address] [id number] [address] [place] [address], [place] [address] Apr, [facility] [address] [id number] [address] [place] [address], [place] [address] Apr, [facility] [address] [id number] [address] [place] [address], [place] [address] Apr, [facility] [address] [id number] [address] [place] [address], [place] [address] Mar, [facility] [address] [id number] [address] [place] [address], [place] [address] Mar, [facility] [address] [id number] [address] [place] [address], [place] [address] Mar, [facility] [address] [id number] [address] [place] [address], [place] [address] Mar, [facility] [address] [id number] [address] [place] [id number] Mar, [facility] [address] [id number] [address] [place] [id number] Feb, [facility] [address] [id number] [address] [place] [address], [place] [id number] Jan, [facility] [address] [id number] [address] [place] [address], [place] [phone] Jan, [facility] [address] [id number] [address] [place] [address], [place] [id number] Jan, [facility] [address] [id number] [address] [place] [id number] Dec, [facility] [address] [id number] [address] [place] [phone] Nov, [facility] [address] [id number] [address] [place] [id number] Nov, [facility] [address] [id number] [address] [place] [id number] Nov, [facility] [address] [id number] [address] [place] [id number] Nov, [facility] [address] [id number] [address] [place] [phone] Nov, [facility] [address] [id number] [address] [place] [id number] October, [facility] [address] [id number] [address] [place] [id number] October, [facility] [address] [id number] [address] [place] [id number] October, [facility] [address] [id number] [address] [place] [phone] October, [facility] [address] [id number] [address] [place] [id number] October, IMMUNIZATIONS No Known Immunizations SOCIAL HISTORY Never Assessed REASON FOR VISIT [facility] [place] VITAL SIGNS MEDICATIONS Unknown [...]
--- OUTSIDE RECORDS SUMMARY | 2020-01-25 07:55 | XMS REPORT ---
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 Active 84023660 Problem 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 Active 89701242 Problem Body mass index (BMI) of 40.0-44.9 in adult Z68.41 Active 637454881 Problem Mood disorder F39 Active 894004 05 Problem Unspecified kidney failure N19 Act chip 64607588 Problem Arthritis M19.90 Active 9683303 Problem BPV (benign positional vertigo), bilateral H81.13 Active 529673698 Problem Chronic kidney disease, stage 4 (severe) N18.4 Active 576730296 Problem Primary osteoarthritis of left knee M17.12 Active [id number] Problem Irritable bowel syndrome with both constipation and diarrh ea K58.2 Active 87093417 ALLERGIES No Information ENCOUNTERS Encounter Location Date Diagnosis [place] [id number] [facility] [id number] [address] [place] [phone] Sep, [place] [address] [facility] [id number] [address] [place] [phone] Sep, Renal insufficiency N28.9 an d Unspecified kidney failure N19 [place] [address] [place] [id number] [address] [place] [phone] Sep, Renal insufficiency N28.9 an d Unspecified kidney failure N19 [place] [address] [facility] [id number] [address] [place] [phone] Sep, Arthritis M19.90 [facility] [address] [facility] [id number] [address] [place] [phone] Aug, Exercise counseling Z71.82 [facility] [address] [id number] [address] [place] [phone] Aug, [facility] [address] [facility] [id number] [address] [place] [phone] 27 Jul, 2018 Labyrinthitis of left ear H8 3.02 [facility] [address] [id number] [address] [place] [phone] 22 Jul, 2018 Labyrinthitis of left ear H8 3.02 [facility] [address] [facility] [id number] [address] [place] [phone] 19 Jul, 2018 Exercise counseling Z71.82 [place] [address] [facility] [id number] [address] [place] [id number] 18 Jul, 2018 [place] [address] [facility] [id number] [address] [place] [id number] 14 Jul, 2018 Arthritis M19.90 [place] [address] [facility] [id number] [address] [place] [phone] 13 Jul, 2018 Encounter for Medicare annua l wellness exam Z00.00 ; Chronic kidney disease, stage 4 (severe) N18.4 ; Body mass index (BMI) of 40.0-44.9 in adult Z68.41 ; Hyperparathyroidism E21.3 and BMI 40.0-44.9, adult Z68.41 [place] [address] [facility] [id number] [address] [place] [phone] 13 Jul, 2018 Encounter for Medicare annua l wellness exam Z00.00 ; Chronic kidney disease, stage 4 (severe) N18.4 ; Hyperparathyroidism E21.3 ; Body mass index (BMI) of 40.0-44.9 in adult Z68.41 and Encounter for immunization Z23 [facility] [address] [facility] [id number] [address] [place] [phone] Jul, Tail bone pain M53.3 [facility] [address] [id number] [address] [place] [phone] Jun, Exercise counseling Z71.82 [facility] [address] [id number] [address] [place] [phone] Jun, Labyrinthitis of left ear H8 3.02 [facility] [address] [id number] [address] [place] [phone] Jun, Tail bone pain M53.3 ; Irrit able bowel syndrome with both constipation and diarrhea K58.2 and Dysfunction of left eustachian tube H69.82 [facility] [address] [id number] [address] [place] [phone] Jun, Exercise counseling Z71.82 [facility] [address] [id number] [address] [place] [phone] Jun, Arthritis M19.90 [facility] [address] [id number] [address] [place] [phone] Jun, Irritable bowel syndrome wit h both constipation and diarrhea K58.2 ; Tail bone pain M53.3 and Dysfunction of left eustachian tube H69.82 [facility] [address] [id number] [address] [place] [id number] Jun, Exercise counseling Z71.82 [facility] [address] [id number] [address] [place] [phone] Jun, Exercise counseling Z71.82 [facility] [address] [id number] [address] [place] [phone] Jun, Labyrinthitis of left ear H8 3.02 [facility] [address] [id number] [address] [place] [phone] May, Exercise counseling Z71.82 [facility] [address] [id number] [address] [place] [address] May, Arthritis M19.90 [place] [address] [id number] [address] [place] [phone] May, Exercise counseling Z71.82 [facility] [address] [id number] [address] [place] [phone] May, Exercise counseling Z71.82 [facility] [address] [id number] [address] [place] [phone] May, Labyrinthitis of left ear H8 3.02 [facility] [address] [id number] [address] [place] [phone] May, Exercise counseling Z71.82 [facility] [address] [id number] [address] [place] [phone] Apr, Arthritis M19.90 [facility] [address] [id number] [address] [place] [phone] Apr, Exercise counseling Z71.82 [facility] [address] [id number] [address] [place] [phone] Apr, Exercise counseling Z71.82 [facility] [address] [id number] [address] [place] [phone] Apr, Primary osteoarthritis of le ft knee M17.12 [facility] [address] [id number] [address] [place] [phone] Apr, Labyrinthitis of left ear H8 3.02 [facility] [address] [id number] [address] [place] [phone] Mar, Arthritis M19.90 [facility] [address] [id number] [address] [place] [phone] Mar, [facility] [address] [facility] [id number] [address] [place] [phone] Mar, Chronic kidney disease, stag e 4 (severe) N18.4 [facility] [address] [id number] [address] [place] [phone] Mar, Chronic kidney disease, stag e 4 (severe) N18.4 [facility] [address] [facility] [id number] [address] [place] [phone] Mar, Labyrinthitis of left ear H8 3.02 [facility] [address] [facility] [id number] [address] [place] [phone] Mar, Chronic kidney disease, stag e 4 (severe) N18.4 ; Knee pain, left anterior M25.562 ; Deficiency of other specified B group vitamins E53.8 and Encounter for immunization Z23 [facility] [address] [facility] [id number] [address] [place] [phone] Mar, Arthritis M19.90 [facility] [address] [facility] [id number] [address] [place] [phone] Feb, Labyrinthitis of left ear H8 3.02 [facility] [address] [place] [id number] [address] [place] [phone] Feb, Arthritis M19.90 [facility] [address] [facility] [id number] [address] [place] [phone] Jan, Labyrinthitis of left ear H8 3.02 [facility] [address] [facility] [id number] [address] [place] [phone] Jan, Arthritis M19.90 [facility] [address] [facility] [id number] [address] [place] [phone] Dec, Labyrinthitis of left ear H8 3.02 [facility] [address] [facility] [id number] [address] [place] [phone] Nov, Arthritis M19.90 [facility] [address] [facility] [id number] [address] [place] [phone] Nov, Labyrinthitis of left ear H8 3.02 [facility] [address] [facility] [id number] [address] [place] [phone] Nov, BMI 40.0-44.9, adult Z68.41 ; Chronic kidney disease, stage 4 (severe) N18.4 and Acute right-sided thoracic back pain M54.6 [facility] [address] [place] [id number] [address] [place] [phone] October, Labyrinthitis of left ear H8 3.[address] [facility] [address] [place] [id number] [address] [place] [id number] Sep, BPV (benign positional verti go), bilateral H81.13 ; Dysfunction of left eustachian tube H69.82 and BMI 40.0-44.9, adult Z68.41 [place] [address] [place] [id number] [place] [phone] Sep, Labyrinthitis of left ear H8 3.02 and Arthritis M19.90 [place] [address] [place] [id number] [address] [place] [id number] Sep, [place] [address] [place] [id number] [address] [place] [phone] Sep, [place] [address] [place] [id number] [address] [place] [phone] Sep, Chronic kidney disease, stag e 4 (severe) N18.4 [facility] [address] [place] [id number] [address] [place] [phone] Sep, Chronic kidney disease, stag e 4 (severe) N18.4 [facility] [address] [facility] [id number] [address] [place] [phone] Aug, Labyrinthitis of left ear H8 3.[address] [facility] [address] [facility] [id number] [address] [place] [phone] Aug, [facility] [address] [facility] [id number] [address] [place] [phone] Jul, [facility] [address] [place] [id number] [address] [place] [id number] Jul, Arthritis M19.90 and Labyrin thitis of left ear H83.02 [facility] [address] [facility] [id number] [address] [place] [phone] Jul, [facility] [address] [facility] [id number] [address] [place] [phone] Jun, [facility] [address] [facility] [id number] [address] [place] [phone] Jun, Arthritis M19.90 and Labyrin thitis of left ear H83.02 [place] [address] [facility] [id number] [address] [place] [phone] Jun, Pre-op evaluation Z01.818 ; BMI 40.0-44.9, adult Z68.41 and Encounter for immunization Z23 [place] [address] [facility] [id number] [address] [place] [phone] May, Arthritis M19.90 and Labyrin thitis of left ear H83.02 [place] [address] [facility] [id number] [address] [place] [phone] Apr, Labyrinthitis of left ear H8 3.02 [place] [address] [facility] [id number] [address] [place] [phone] Apr, Arthritis M19.90 and Labyrin thitis of left ear H83.02 [place] [address] [facility] [id number] [address] [place] [id number] Mar, Arthritis M19.90 and Labyrin thitis of left ear H83.02 [place] [address] [facility] [id number] [address] [place] [phone] 05 Mar, 2017 Chronic kidney disease, stag e 4 (severe) N18.4 [facility] [address] [facility] [id number] [address] [place] [phone] 06 Feb, 2017 Arthritis M19.90 and Labyrin thitis of left ear H83.02 [place] [address] [facility] [id number] [address] [place] [phone] Jan, Labyrinthitis of left ear H8 3.02 and Deficiency of other specified B group vitamins E53.8 [facility] [address] [facility] [id number] [address] [place] [phone] Dec, Arthritis M19.90 [facility] [address] [facility] [id number] [address] [place] [phone] Dec, BPV (benign positional verti go), bilateral H81.13 [facility] [address] [facility] [id number] [address] [place] [phone] Dec, [facility] [address] [facility] [id number] [address] [place] [phone] Dec, [facility] [address] [place] [id number] [address] [place] [phone] Dec, [facility] [address] [facility] [id number] [address] [place] [phone] Nov, Arthritis M19.90 and Deficie ncy of other specified B group vitamins E53.8 [facility] [address] [facility] [id number] [address] [place] [phone] Nov, Arthritis M19.90 [facility] [address] [facility] [id number] [address] [place] [phone] Nov, Hyperparathyroidism E21.3 [facility] [address] [facility] [id number] [address] [place] [phone] October, [facility] [address] [facility] [id number] [address] [place] [phone] October, Hyperparathyroidism E21.3 [facility] [address] [facility] [id number] [address] [place] [phone] October, [facility] [address] [facility] [id number] [address] [place] [phone] October, Renal insufficiency N28.9 an d Hyperparathyroidism E21.3 [facility] [address] [facility] [id number] [address] [place] [id number] October, [facility] [address] [id number] October, Renal insufficiency N28.9 an d Hyperparathyroidism E21.3 [facility] [address] [facility] [id number] [address] [place] [phone] October, Arthritis M19.90 [facility] [address] [facility] [id number] [address] [place] [phone] Sep, [facility] [address] [place] [id number] [address] [place] [phone] Sep, Lumbar neuritis M54.16 ; Tho racic abscess J86.9 and Deficiency of other specified B group vitamins E53.8 [facility] [address] [facility] [id number] [address] [place] [phone] Sep, [facility] [address] [facility] [id number] [address] [place] [phone] Aug, Arthritis M19.90 [facility] [address] [place] [id number] [address] [place] [phone] Aug, Hyperparathyroidism E21.3 [facility] [address] [place] [id number] [address] [place] [phone] Aug, Hyperparathyroidism E21.3 [facility] [address] [place] [id number] [address] [place] [phone] Aug, Arthritis M19.90 [facility] [address] [place] [id number] [address] [place] [phone] Jul, Mass of throat R22.1 [facility] [address] [place] [id number] [address] [place] [phone] Jul, [facility] [address] [place] [id number] [address] [place] [phone] Jul, Arthritis M19.90 [facility] [address] [id number] [address] [place] [phone] Jun, Arthritis M19.90 [facility] [address] [facility] [id number] [address] [place] [phone] Jun, [facility] [address] [facility] [id number] [address] [place] [phone] Jun, Renal insufficiency N28.9 an d 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 [facility] [address] [facility] [id number] [address] [place] [phone] 05 Jun, 2016 Medicare welcome exam Z00.00 ; Encounter for immunization Z23 ; Arthritis M19.90 ; Medicare annual wellness visit, initial Z00.00 ; Medicare annual wellness visit, subsequent Z00.00 and Deficiency of other specified B group vitamins E53.8 [facility] [address] [facility] [id number] [address] [place] [phone] 29 May, 2016 Renal insufficiency N28.9 an d 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 [facility] [address] [id number] [address] [place] [phone] 19 May, [address] [facility] [address] [facility] [id number] [address] [place] [id number] 16 May, [address] [facility] [address] [facility] [id number] [address] [place] [phone] 14 May, 2016 [facility] [address] [facility] [id number] [address] [place] [phone] Apr, [facility] [address] [facility] [id number] [address] [place] [phone] Apr, [facility] [address] [facility] [id number] [address] [place] [phone] 14 Apr, 2016 Mass of throat R22.1 [facility] [address] [facility] [id number] [address] [place] [phone] 10 Apr, 2016 [facility] [address] [id number] [address] [place] [phone] 10 Apr, 2016 Mass of throat R22.1 [facility] [address] [id number] [address] [place] [phone] 04 Apr, 2016 Mass of throat R22.1 [facility] [address] [id number] [address] [place] [phone] Mar, [facility] [address] [id number] [address] [place] [phone] Mar, [facility] [address] [id number] [address] [place] [phone] Mar, [facility] [address] [id number] [address] [place] [phone] 24 Mar, 2016 Parathyroid abnormality E21. 5 and Encounter for immunization Z23 [facility] [address] [id number] [address] [place] [phone] Mar, [facility] [address] [id number] [address] [place] [phone] Mar, [facility] [address] [id number] [address] [place] [phone] 21 Feb, 2016 Renal insufficiency N28.9 an d Hyperparathyroidism E21.3 [facility] [address] [id number] [address] [place] [phone] 19 Feb, 2016 [facility] [address] [id number] [address] [place] [phone] 15 Feb, 2016 Renal insufficiency N28.9 an d Hyperparathyroidism E21.3 [facility] [address] [id number] [address] [place] [phone] [address] Feb, [address] [facility] [address] [facility] [id number] [address] [place] [phone] 12 Feb, 2016 [facility] [address] [facility] [id number] [address] [place] [phone] [address] Feb, 2016 [facility] [address] [facility] [id number] [address] [place] [phone] Jan, [facility] [address] [facility] [id number] [address] [place] [phone] Jan, Arthritis M19.90 ; Lumbago w ith sciatica, right side M54.41 and Other chronic pain G89.29 [facility] [address] [facility] [id number] [address] [place] [phone] Jan, [place] [address] [place] [id number] [address] [place] [phone] Dec, Arthritis M19.90 ; Lumbago w ith sciatica, right side M54.41 and Other chronic pain G89.29 [place] [address] [place] [id number] [address] [place] [phone] Nov, Deficiency of other specifie d B group vitamins E53.8 ; Primary insomnia F51.01 ; Mood disorder F39 and Lumbago with sciatica, right side M54.41 [place] [address] [facility] [id number] [address] [place] [phone] Nov, Hyperparathyroidism E21.3 [place] [address] [place] [id number] [address] [place] [phone] Nov, Unspecified kidney failure N 19 and Hyperparathyroidism E21.3 [place] [address] [place] [id number] [address] [place] [phone] October, Hyperparathyroidism E21.3 [place] [address] [place] [id number] [address] [place] [phone] October, [place] [address] [facility] [id number] [address] [place] [id number] October, Hyperparathyroidism E21.3 [place] [address] [place] [id number] [address] [place] [phone] October, Hyperparathyroidism E21.3 [place] [address] [place] [id number] [address] [place] [phone] Sep, Hyperparathyroidism E21.3 ; Hypercholesterolemia E78.[address] [facility] [address] [facility] [id number] [address] [place] [phone] Aug, [facility] [address] [place] [id number] [address] [place] [phone] Aug, Deficiency of other specifie d B group vitamins E53.8 [facility] [address] [place] [id number] [address] [place] [phone] Aug, [facility] [address] [place] [id number] [address] [place] [id number] Jul, Urinary frequency R35.0 [facility] [address] [facility] [id number] [address] [place] [phone] Jul, Urinary frequency R35.0 [facility] [address] [place] [id number] [place] [phone] Jul, [facility] [address] [place] [id number] [address] [place] [phone] Jul, [facility] [address] [place] [id number] [place] [phone] Jun, Pain in left knee M25.562 [facility] [address] [place] [id number] [address] [place] [phone] Jun, [facility] [address] [place] [id number] [address] [place] [phone] May, Swelling of left knee joint M25.462 [facility] [address] [place] [id number] [address] [place] [phone] May, [facility] [address] [place] [id number] [address] [place] [phone] May, [facility] [address] [place] [id number] [address] [place] [phone] May, [facility] [address] [place] [id number] [address] [place] [phone] Apr, Renal insufficiency N28.9 an d Chronic kidney disease, stage 4 (severe) N18.4 [facility] [address] [facility] [id number] [address] [place] [phone] Apr, Unspecified kidney failure N 19 [facility] [address] [facility] [id number] [address] [place] [phone] Apr, Unspecified kidney failure N 19 [facility] [address] [facility] [id number] [address] [place] [phone] Apr, [facility] [address] [facility] [id number] [address] [place] [phone] Apr, Hyperparathyroidism, unspeci fied 252.00 [facility] [address] [facility] [id number] [address] [place] [phone] Apr, [facility] [address] [facility] [id number] [address] [place] [phone] Mar, [facility] [address] [id number] [address] [place] [id number] Mar, [facility] [address] [facility] [id number] [address] [place] [phone] Mar, Hyperparathyroidism, unspeci fied 252.00 [facility] [address] [facility] [id number] [address] [place] [phone] Feb, [facility] [address] [facility] [id number] [address] [place] [phone] Feb, Otalgia 388.70 [facility] [address] [facility] [id number] [address] [place] [phone] Feb, [facility] [address] [facility] [id number] [address] [place] [phone] Feb, [facility] [address] [facility] [id number] [address] [place] [phone] Jan, [facility] [address] [id number] [address] [place] [address] Jan, Hyperparathyroidism, unspeci fied 252.00 [facility] [address] [id number] [address] [place] [id number] Jan, [facility] [address] [id number] [address] [place] [address] Jan, Other B-complex deficiencies 266.2 and Hyperparathyroidism, unspecified 252.00 [facility] [address] [id number] [address] [place] [phone] Jan, [facility] [address] [id number] [address] [place] [id number] Jan, [facility] [address] [id number] [address] [place] [address] Jan, [facility] [address] [id number] [address] [place] [phone] Dec, [facility] [address] [id number] [address] [place] [phone] Dec, [facility] [address] [id number] [address] [place] [phone] Dec, [facility] [address] [id number] [address] [place] [phone] Nov, Routine check-up V70.0 and P re-op exam V72.84 [facility] [address] [id number] [address] [place] [id number] Nov, [facility] [address] [id number] [address] [place] [phone] Nov, [facility] [address] [id number] [address] [place] [phone] October, [facility] [address] [id number] [address] [place] [id number] October, Other B-complex deficiencies 266.2 [facility] [address] [id number] [address] [place] [address], [place] [address] 12 Oct, 2014 [facility] [address] [id number] [address] [place] [address], [place] [address] 14 Sep, 2014 [facility] [address] [id number] [address] [place] [address], [place] [address] 13 Sep, 2014 [facility] [address] [id number] [address] [place] [address], [place] [address] 20 Aug, 2014 [facility] [address] [id number] [address] [place] [address], [place] [address] 20 Aug, 2014 [facility] [address] [id number] [address] [place] [address], [place] [address] 17 Aug, 2014 [facility] [address] [id number] [address] [place] [address], [place] [address] 17 Aug, 2014 [facility] [address] [id number] [address] [place] [address], [place] [address] 11 Aug, 2014 [facility] [address] [id number] [address] [place] [address], [place] [address] 11 Aug, 2014 [facility] [address] [id number] [address] [place] [address], [place] [address] 18 Jul, 2014 [facility] [address] [id number] [address] [place] [address], [place] [address] 18 Jul, 2014 [facility] [address] [id number] [address] [place] [address], [place] [address] 17 Jul, 2014 [facility] [address] [id number] [address] [place] [address], [place] [address] 17 Jul, 2014 [facility] [address] [id number] [address] [place] [address], [place] [address] 12 Jul, 2014 [facility] [address] [id number] [address] [place] [address], [place] [address] 12 Jul, 2014 [facility] [address] [id number] [address] [place] [address], [place] [address] 10 Jul, 2014 [facility] [address] [id number] [address] [place] [address], [place] [address] Jul, 2014 [facility] [address] [id number] [address] [place] [address], [place] [address] Jul, [facility] [address] [id number] [address] [place] [address], [place] [address] Jul, 2014 [facility] [address] [id number] [address] [place] [address], [place] [address] Jul, 2014 [facility] [address] [id number] [address] [place] [address], [place] [address] Jul, [facility] [address] [id number] [address] [place] [address], [place] [address] Jul, [facility] [address] [id number] [address] [place] [address], [place] [address] Jul, [facility] [address] [id number] [address] [place] [address], [place] [address] Jun, [facility] [address] [id number] [address] [place] [address], [place] [address] Jun, [facility] [address] [id number] [address] [place] [address], [place] [address] Jun, [facility] [address] [id number] [address] [place] [address], [place] [address] Jun, [facility] [address] [id number] [address] [place] [address], [place] [address] Jun, [facility] [address] [id number] [address] [place] [address], [place] [address] Jun, [facility] [address] [id number] [address] [place] [address], [place] [address] Jun, [facility] [address] [id number] [address] [place] [address], [place] [address] Jun, [facility] [address] [id number] [address] [place] [address], [place] [address] Jun, [facility] [address] [id number] [address] [place] [address], [place] [address] Jun, [facility] [address] [id number] [address] [place] [address], [place] [address] Jun, [facility] [address] [id number] [address] [place] [address], [place] [address] Jun, [facility] [address] [id number] [address] [place] [address], [place] [address] Jun, [facility] [address] [id number] [address] [place] [address], [place] [address] Jun, [facility] [address] [id number] [address] [place] [address], [place] [address] May, [facility] [address] [id number] [address] [place] [address], [place] [address] May, [facility] [address] [id number] [address] [place] [address], [place] [address] May, [facility] [address] [id number] [address] [place] [address], [place] [address] May, [facility] [address] [id number] [address] [place] [address], [place] [address] Apr, [facility] [address] [id number] [address] [place] [address], [place] [address] Apr, [facility] [address] [id number] [address] [place] [address], [place] [address] Apr, [facility] [address] [id number] [address] [place] [address], [place] [address] Apr, [facility] [address] [id number] [address] [place] [address], [place] [address] Apr, [facility] [address] [id number] [address] [place] [address], [place] [address] Apr, [facility] [address] [id number] [address] [place] [address], [place] [address] Mar, [facility] [address] [id number] [address] [place] [address], [place] [address] Mar, [facility] [address] [id number] [address] [place] [address], [place] [address] Mar, [facility] [address] [id number] [address] [place] [address], [place] [address] Mar, [facility] [address] [id number] [address] [place] [address], [place] [address] Mar, [facility] [address] [id number] [address] [place] [address], [place] [address] Mar, [facility] [address] [id number] [address] [place] [address], [place] [address] Mar, [facility] [address] [id number] [address] [place] [address], [place] [address] Mar, [facility] [address] [id number] [address] [place] [address], [place] [address] Mar, [facility] [address] [id number] [address] [place] [address] Mar, [facility] [address] [id number] [address] [place] [address] Mar, [facility] [address] [id number] [address] [place] [phone] Mar, [facility] [address] [id number] [address] [place] [address], [place] [address] Mar, [facility] [address] [id number] [address] [place] [phone] Feb, [facility] [address] [id number] [address] [place] [address] Feb, [facility] [address] [id number] [address] [place] [phone] 23 Feb, 2013 [facility] [address] [id number] [address] [place] [address], [place] [address] 23 Feb, 2013 [facility] [address] [id number] [address] [place] [address], [place] [address] 19 Feb, 2014 [facility] [address] [id number] [address] [place] [address], [place] [address] 19 Feb, 2014 [facility] [address] [id number] [address] [place] [address], [place] [address] 13 Feb, 2014 [facility] [address] [id number] [address] [place] [address], [place] [address] 13 Feb, 2014 [facility] [address] [id number] [address] [place] [address], [place] [address] Feb, [facility] [address] [id number] [address] [place] [address], [place] [address] Feb, [facility] [address] [id number] [address] [place] [address], [place] [address] Jan, [facility] [address] [id number] [address] [place] [address], [place] [address] Jan, [facility] [address] [id number] [address] [place] [address], [place] [address] Dec, [facility] [address] [id number] [address] [place] [address], [place] [address] Dec, [facility] [address] [id number] [address] [place] [address], [place] [address] Dec, [facility] [address] [id number] [address] [place] [address], [place] [address] Dec, [facility] [address] [id number] [address] [place] [address], [place] [address] Dec, [facility] [address] [id number] [address] [place] [address], [place] [address] Dec, [facility] [address] [id number] [facility] [place] [address] Nov, [facility] [address] [id number] [facility] [place] [place] [address] Nov, [facility] [address] [id number] [facility] [place] [address] Nov, [facility] [address] [id number] [facility] [place] [address] Nov, [facility] [address] [id number] [facility] [place] [address] October, [facility] [address] [id number] [address] [place] [address], [place] [address] October, [facility] [address] [id number] [address] [place] [address], [place] [address] October, [facility] [address] [id number] [address] [place] [address], [place] [address] October, [facility] [address] [id number] [address] [place] [address], [place] [address] October, [facility] [address] [id number] [address] [place] [address], [place] [address] October, [facility] [address] [id number] [address] [place] [address], [place] [address] October, [facility] [address] [id number] [address] [place] [address], [place] [address] October, [facility] [address] [id number] [address] [place] [address], [place] [address] October, [facility] [address] [id number] [address] [place] [address], [place] [address] October, [facility] [address] [id number] [address] [place] [address], [place] [address] October, [facility] [address] [id number] [address] [place] [address], [place] [address] October, [facility] [address] [id number] [facility] [place] [place] [address] October, [facility] [address] [id number] [facility] [place] [address] October, [facility] [address] [id number] [address] [place] [address], [place] [address] October, [facility] [address] [id number] [address] [place] [address], [place] [address] October, [facility] [address] [id number] [address] [place] [address], [place] [address] Sep, [facility] [address] [id number] [address] [place] [address], [place] [address] Sep, [facility] [address] [id number] [address] [place] [address], [place] [address] Sep, [facility] [address] [id number] [address] [place] [address], [place] [address] Sep, [facility] [address] [id number] [address] [place] [address], [place] [address] Sep, [facility] [address] [id number] [address] [place] [address], [place] [address] Sep, [facility] [address] [id number] [address] [place] [address], [place] [address] Aug, [facility] [address] [id number] [address] [place] [address], [place] [address] Aug, [facility] [address] [id number] [address] [place] [address], [place] [address] Aug, [facility] [address] [id number] [address] [place] [address], [place] [address] Aug, [facility] [address] [id number] [address] [place] [address], [place] [address] Aug, [facility] [address] [id number] [address] [place] [address], [place] [address] Aug, [facility] [address] [id number] [address] [place] [address], [place] [address] Jul, [facility] [address] [id number] [address] [place] [address], [place] [address] Jul, [facility] [address] [id number] [address] [place] [address], [place] [address] Jul, [facility] [address] [id number] [address] [place] [address], [place] [address] Jul, [facility] [address] [id number] [address] [place] [address], [place] [address] Jun, [facility] [address] [id number] [address] [place] [address], [place] [address] Jun, [facility] [address] [id number] [address] [place] [address], [place] [address] May, [facility] [address] [id number] [address] [place] [address], [place] [address] May, [facility] [address] [id number] [address] [place] [address], [place] [address] May, [facility] [address] [id number] [address] [place] [address], [place] [address] May, [facility] [address] [id number] [address] [place] [address], [place] [address] May, [facility] [address] [id number] [address] [place] [address], [place] [address] Apr, [facility] [address] [id number] [address] [place] [address], [place] [address] Apr, [facility] [address] [id number] [address] [place] [address], [place] [address] Apr, [facility] [address] [id number] [address] [place] [address], [place] [address] Apr, [facility] [address] [id number] [address] [place] [address], [place] [address] 04 Apr, 2013 [facility] [address] [id number] [address] [place] [address], [place] [address] 04 Apr, 2013 [facility] [address] [id number] [address] [place] [address], [place] [address] 15 Mar, 2013 [facility] [address] [id number] [address] [place] [address], [place] [address] 15 Mar, 2013 [facility] [address] [id number] [address] [place] [address], [place] [address] 14 Mar, 2013 [facility] [address] [id number] [address] [place] [address], [place] [address] 14 Mar, 2013 [facility] [address] [id number] [address] [place] [address], [place] [address] 11 Mar, 2013 [facility] [address] [id number] [address] [place] [address], [place] [address] Mar, [facility] [address] [id number] [address] [place] [address], [place] [address] 23 Feb, 2013 [facility] [address] [id number] [address] [place] [address] 19 Feb, 2013 [facility] [address] [id number] [address] [place] [address] Feb, [facility] [address] [id number] [address] [place] [address] 30 Jan, 2013 [facility] [address] [id number] [address] [place] [address], [place] [address] Jan, [facility] [address] [id number] [address] [place] [address], [place] [address] Jan, [facility] [address] [id number] [address] [place] [address] 16 Jan, 2013 [facility] [address] [id number] [address] [place] [id number] Jan, [facility] [address] [id number] [address] [place] [address], [place] [address] Jan, [facility] [address] [id number] [address] [place] [address], [place] [address] Dec, [facility] [address] [id number] [address] [place] [address], [place] [address] Dec, [facility] [address] [id number] [address] [place] [address], [place] [address] Dec, [facility] [address] [id number] [address] [place] [address], [place] [address] Dec, [facility] [address] [id number] [address] [place] [address], [place] [address] Dec, [facility] [address] [id number] [address] [place] [address], [place] [address] Dec, [facility] [address] [id number] [address] [place] [address], [place] [address] Nov, [facility] [address] [id number] [address] [place] [address], [place] [address] Nov, [facility] [address] [id number] [address] [place] [address], [place] [address] Nov, [facility] [address] [id number] [address] [place] [address], [place] [address] Nov, [facility] [address] [id number] [address] [place] [address], [place] [address] Nov, [facility] [address] [id number] [address] [place] [address], [place] [address] Nov, [facility] [address] [id number] [address] [place] [address], [place] [address] October, [facility] [address] [id number] [address] [place] [address], [place] [address] October, [facility] [address] [id number] [address] [place] [address], [place] [address] October, [facility] [address] [id number] [address] [place] [address], [place] [address] October, [facility] [address] [id number] [address] [place] [address], [place] [address] October, [facility] [address] [id number] [address] [place] [address], [place] [address] 30 Sep, 2012 [facility] [address] [id number] [address] [place] [address], [place] [address] Sep, [facility] [address] [id number] [address] [place] [address], [place] [address] Sep, [facility] [address] [id number] [address] [place] [address], [place] [address] 18 Sep, 2012 [facility] [address] [id number] [address] [place] [address], [place] [address] Sep, [facility] [address] [id number] [address] [place] [address], [place] [address] Aug, [facility] [address] [id number] [address] [place] [address], [place] [address] Aug, [facility] [address] [id number] [address] [place] [address], [place] [address] Aug, [facility] [address] [id number] [address] [place] [address], [place] [address] Jul, [facility] [address] [id number] [address] [place] [address], [place] [address] Jul, [facility] [address] [id number] [address] [place] [address], [place] [address] Jul, [facility] [address] [id number] [address] [place] [address], [place] [address] 08 Jul, 2012 [facility] [address] [id number] [address] [place] [address], [place] [address] Jul, [facility] [address] [id number] [address] [place] [address], [place] [address] Jul, [facility] [address] [id number] [address] [place] [address] Jun, [facility] [address] [id number] [address] [place] [address], [place] [address] Apr, [facility] [address] [id number] [address] [place] [address], [place] [address] Apr, [facility] [address] [id number] [address] [place] [address], [place] [address] Apr, [facility] [address] [id number] [address] [place] [address], [place] [address] Apr, [facility] [address] [id number] [address] [place] [address], [place] [address] Mar, [facility] [address] [id number] [address] [place] [address], [place] [address] Mar, [facility] [address] [id number] [address] [place] [address], [place] [address] Mar, [facility] [address] [id number] [address] [place] [address], [place] [address] Mar, [facility] [address] [id number] [address] [place] [address] Mar, [facility] [address] [id number] [address] [place] [id number] Feb, [facility] [address] [id number] [address] [place] [address], [place] [phone] Jan, [facility] [address] [id number] [address] [place] [address], [place] [phone] Jan, [facility] [address] [id number] [address] [place] [address], [place] [phone] Jan, [facility] [address] [id number] [address] [place] [phone] Dec, [facility] [address] [id number] [address] [place] [id number] Nov, [facility] [address] [id number] [address] [place] [phone] Nov, [facility] [address] [id number] [address] [place] [phone] Nov, [facility] [address] [id number] [address] [place] [phone] Nov, [facility] [address] [id number] [address] [place] [phone] Nov, [facility] [address] [id number] [address] [place] [phone] October, [facility] [address] [id number] [address] [place] [phone] October, [facility] [address] [id number] [address] [place] [phone] October, [facility] [address] [id number] [address] [place] [phone] October, [facility] [address] [id number] [address] [place] [phone] October, IMMUNIZATIONS No Known Immunizations SOCIAL HISTORY Never Assessed REASON FOR VISIT [facility] PLAN OF CARE VITAL SIGNS MEDICATIONS Unknown [...]
--- OUTSIDE RECORDS SUMMARY | 2020-01-25 07:56 | XMS REPORT ---
Author Author Velma CORDERO Organization [facility] Address [address] [place] [address] Care Team Providers Care Expense Clerk Name Role Phone STEPHAN CORDERO Unavailable PROBLEMS Type Condition ICD9-CM Code EEL61-MB Code Onset Dates Condition S tatus SNOMED Code Problem Hyperparathyroidism E21.3 Active 41674364 Problem Mood disorder F39 Active 767503 05 Problem Arthritis M19.90 Active 4446055 Problem Primary insomnia F51.01 Active 397 2004 Problem Myalgia M79.1 Active 30264365 Problem Hypercholesteremia E78.0 Active 1 4891795 Problem Primary osteoarthritis of left knee M17.12 Active [id number] Problem Chronic kidney disease, stage 4 (severe) N18.4 Active 396382277 Problem 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 Active 17373573 Problem Corns L84 Active 386819682 Problem BPV (benign positional vertigo), bilateral H81.13 Active 409075687 Problem 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 Active 66220029 ALLERGIES No Information ENCOUNTERS Encounter Location Date Diagnosis [place] [id number] [facility] [id number] [address] [place] [phone] Jun, [facility] [address] [facility] [id number] [address] [place] [address] May, [facility] [address] [facility] [id number] [address] [place] [address] May, Arthritis M19.90 [facility] [address] [facility] [id number] [address] [place] [address] May, Exercise counseling Z71.82 [place] [address] [facility] [id number] [address] [place] [address] May, Exercise counseling Z71.82 [place] [address] [id number] [address] [place] [phone] 06 May, 2018 Labyrinthitis of left ear H8 3.02 [facility] [address] [id number] [address] [place] [phone] 03 May, 2018 Exercise counseling Z71.82 [facility] [address] [id number] [address] [place] [address] Apr, Arthritis M19.90 [facility] [address] [id number] [address] [place] [address] Apr, Exercise counseling Z71.82 [facility] [address] [id number] [address] [place] [address] Apr, Exercise counseling Z71.82 [facility] [address] [id number] [address] [place] [address] Apr, Primary osteoarthritis of le ft knee M17.12 [facility] [address] [id number] [address] [place] [phone] Apr, Labyrinthitis of left ear H8 3.02 [facility] [address] [id number] [address] [place] [phone] 30 Mar, 2018 Arthritis M19.90 [facility] [address] [id number] [address] [place] [id number] 16 Mar, 2018 [facility] [address] [id number] [address] [place] [id number] Mar, Chronic kidney disease, stag e 4 (severe) N18.4 [facility] [address] [id number] [address] [place] [address] Mar, Chronic kidney disease, stag e 4 (severe) N18.4 [facility] [address] [facility] [id number] [address] [place] [phone] 09 Mar, 2018 Labyrinthitis of left ear H8 3.02 [facility] [address] [id number] [address] [place] [address] Mar, Chronic kidney disease, stag e 4 (severe) N18.4 ; Knee pain, left anterior M25.562 ; Deficiency of other specified B group vitamins E53.8 and Encounter for immunization Z23 [facility] [address] [facility] [id number] [address] [place] [id number] Mar, Arthritis M19.90 [facility] [address] [place] [id number] [address] [place] [phone] Feb, Labyrinthitis of left ear H8 3.02 [facility] [address] [place] [id number] [address] [place] [address] Feb, Arthritis M19.90 [place] [address] [place] [id number] [place] [phone] Jan, Labyrinthitis of left ear H8 3.02 [facility] [address] [place] [id number] [address] [place] [address] Jan, Arthritis M19.90 [facility] [address] [place] [id number] [address] [place] [phone] Dec, Labyrinthitis of left ear H8 3.02 [place] [address] [place] [id number] [address] [place] [address] Nov, Arthritis M19.90 [facility] [address] [place] [id number] [address] [place] [address] Nov, Labyrinthitis of left ear H8 3.02 [facility] [address] [place] [id number] [address] [place] [address] Nov, BMI 40.0-44.9, adult Z68.41 ; Chronic kidney disease, stage 4 (severe) N18.4 and Acute right-sided thoracic back pain M54.6 [facility] [address] [facility] [id number] [address] [place] [address] October, Labyrinthitis of left ear H8 3.02 and Arthritis M19.90 [place] [address] [facility] [id number] [address] [place] [address] Sep, BPV (benign positional verti go), bilateral H81.13 ; Dysfunction of left eustachian tube H69.82 and BMI 40.0-44.9, adult Z68.41 [facility] [address] [facility] [id number] [address] [place] [address] Sep, Labyrinthitis of left ear H8 3.02 and Arthritis M19.90 [facility] [address] [id number] [address] [place] [address] Sep, [facility] [address] [facility] [id number] [address] [place] [address] Sep, [facility] [address] [facility] [id number] [address] [place] [address] Sep, Chronic kidney disease, stag e 4 (severe) N18.4 [facility] [address] [facility] [id number] [address] [place] [address] Sep, Chronic kidney disease, stag e 4 (severe) N18.4 [facility] [address] [facility] [id number] [address] [place] [address] Aug, Labyrinthitis of left ear H8 3.02 and Arthritis M19.90 [facility] [address] [facility] [id number] [address] [place] [phone] Aug, [facility] [address] [facility] [id number] [address] [place] [address] Jul, [facility] [address] [facility] [id number] [address] [place] [id number] Jul, Arthritis M19.90 and Labyrin thitis of left ear H83.02 [facility] [address] [facility] [id number] [address] [place] [address] Jul, [facility] [address] [place] [id number] [address] [place] [address] Jun, [place] [address] [place] [id number] [address] [place] [address] Jun, Arthritis M19.90 and Labyrin thitis of left ear H83.02 [place] [address] [place] [id number] [address] [place] [address] Jun, Pre-op evaluation Z01.818 ; BMI 40.0-44.9, adult Z68.41 and Encounter for immunization Z23 [place] [address] [place] [id number] [address] [place] [address] May, Arthritis M19.90 and Labyrin thitis of left ear H83.02 [place] [address] [place] [id number] [place] [phone] Apr, Labyrinthitis of left ear H8 3.02 [place] [address] [address] Apr, Arthritis M19.90 and Labyrin thitis of left ear H83.02 [place] [address] [phone] Mar, Arthritis M19.90 and Labyrin thitis of left ear H83.02 [place] [address] [place] [id number] [address] [place] [address] Mar, Chronic kidney disease, stag e 4 (severe) N18.4 [place] [address] [place] [id number] [address] [place] [address] Feb, Arthritis M19.90 and Labyrin thitis of left ear H83.02 [place] [address] [place] [id number] [place] [address] Jan, Labyrinthitis of left ear H8 3.02 and Deficiency of other specified B group vitamins E53.8 [place] [address] [place] [id number] [address] [place] [address] Dec, Arthritis M19.90 [facility] [address] [facility] [id number] [address] [place] [phone] Dec, BPV (benign positional verti go), bilateral H81.13 [facility] [address] [facility] [id number] [address] [place] [address] Dec, [facility] [address] [place] [id number] [address] [place] [address] Dec, [facility] [address] [facility] [id number] [address] [place] [address] Dec, [facility] [address] [facility] [id number] [address] [place] [address] Nov, Arthritis M19.90 and Deficie ncy of other specified B group vitamins E53.8 [facility] [address] [facility] [id number] [address] [place] [address] Nov, Arthritis M19.90 [facility] [address] [facility] [id number] [address] [place] [phone] Nov, Hyperparathyroidism E21.3 [facility] [address] [place] [id number] [address] [place] [address] October, [facility] [address] [place] [id number] [address] [place] [id number] October, Hyperparathyroidism E21.3 [facility] [address] [place] [id number] [address] [place] [phone] October, [facility] [address] [place] [id number] [address] [place] [address] October, Renal insufficiency N28.9 an d Hyperparathyroidism E21.3 [facility] [address] [facility] [id number] [address] [place] [address] October, [facility] [address] [place] [id number] [address] [place] [address] October, Renal insufficiency N28.9 an d Hyperparathyroidism E21.3 [facility] [address] [place] [id number] [address] [place] [address] October, Arthritis M19.90 [facility] [address] [facility] [id number] [address] [place] [address] Sep, [facility] [address] [facility] [id number] [address] [place] [address] Sep, Lumbar neuritis M54.16 ; Tho racic abscess J86.9 and Deficiency of other specified B group vitamins E53.8 [facility] [address] [facility] [id number] [address] [place] [address] Sep, [facility] [address] [facility] [id number] [address] [place] [address] Aug, Arthritis M19.90 [facility] [address] [facility] [id number] [address] [place] [address] Aug, Hyperparathyroidism E21.3 [facility] [address] [facility] [id number] [address] [place] [address] Aug, Hyperparathyroidism E21.3 [facility] [address] [facility] [id number] [address] [place] [address] Aug, Arthritis M19.90 [facility] [address] [facility] [id number] [address] [place] [phone] Jul, Mass of throat R22.1 [facility] [address] [facility] [id number] [address] [place] [address] Jul, [facility] [address] [facility] [id number] [address] [place] [address] Jul, Arthritis M19.90 [facility] [address] [facility] [id number] [address] [place] [phone] Jun, Arthritis M19.90 [facility] [address] [facility] [id number] [address] [place] [address] Jun, [facility] [address] [facility] [id number] [address] [place] [id number] Jun, Renal insufficiency N28.9 an d 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 [facility] [address] [facility] [id number] [address] [place] [phone] 05 Jun, 2016 Medicare welcome exam Z00.00 ; Encounter for immunization Z23 ; Arthritis M19.90 ; Medicare annual wellness visit, initial Z00.00 ; Medicare annual wellness visit, subsequent Z00.00 and Deficiency of other specified B group vitamins E53.8 [facility] [address] [facility] [id number] [address] [place] [address] May, Renal insufficiency N28.9 an d 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 [facility] [address] [facility] [id number] [address] [place] [address] May, Renal insufficiency N28.9 [facility] [address] [facility] [id number] [address] [place] [address] May, Renal insufficiency N28.9 [facility] [address] [facility] [id number] [address] [place] [phone] May, [facility] [address] [facility] [id number] [address] [place] [address] Apr, [facility] [address] [facility] [id number] [address] [place] [address] Apr, [facility] [address] [facility] [id number] [address] [place] [address] Apr, Mass of throat R22.1 [facility] [address] [facility] [id number] [address] [place] [phone] 10 Apr, 2016 [facility] [address] [facility] [id number] [address] [place] [phone] 10 Apr, 2016 Mass of throat R22.1 [facility] [address] [facility] [id number] [address] [place] [phone] 04 Apr, 2016 Mass of throat R22.1 [facility] [address] [facility] [id number] [address] [place] [address] Mar, [facility] [address] [id number] [address] [place] [address] Mar, [facility] [address] [id number] [address] [place] [address] Mar, [facility] [address] [facility] [id number] [address] [place] [address] Mar, Parathyroid abnormality E21. 5 and Encounter for immunization Z23 [facility] [address] [id number] [address] [place] [phone] 17 Mar, 2016 [facility] [address] [id number] [address] [place] [address] Mar, [facility] [address] [facility] [id number] [address] [place] [address] 21 Feb, 2016 Renal insufficiency N28.9 an d Hyperparathyroidism E21.3 [facility] [address] [id number] [address] [place] [id number] 19 Feb, 2016 [facility] [address] [id number] [address] [place] [id number] 15 Feb, 2016 Renal insufficiency N28.9 an d Hyperparathyroidism E21.3 [facility] [address] [facility] [id number] [address] [place] [phone] 14 Feb, 2016 [facility] [address] [facility] [id number] [address] [place] [phone] 12 Feb, 2016 [facility] [address] [id number] [address] [place] [phone] 09 Feb, 2016 [facility] [address] [id number] [address] [place] [address] Jan, [facility] [address] [facility] [id number] [address] [place] [address] Jan, Arthritis M19.90 ; Lumbago w ith sciatica, right side M54.41 and Other chronic pain G89.29 [facility] [address] [facility] [id number] [address] [place] [address] Jan, [place] [id number] [place] [address] Dec, Arthritis M19.90 ; Lumbago w ith sciatica, right side M54.41 and Other chronic pain G89.29 [place] [address] [place] [id number] [place] [phone] Nov, Deficiency of other specifie d B group vitamins E53.8 ; Primary insomnia F51.01 ; Mood disorder F39 and Lumbago with sciatica, right side M54.41 [place] [address] [place] [id number] [place] [address] Nov, Hyperparathyroidism E21.3 [place] [address] [place] [id number] [address] [place] [id number] Nov, Unspecified kidney failure N 19 and Hyperparathyroidism E21.3 [place] [address] [place] [id number] [address] [place] [address] October, Hyperparathyroidism E21.3 [place] [address] [place] [id number] [place] [phone] October, [place] [address] [place] [id number] [address] [place] [address] October, Hyperparathyroidism E21.3 [place] [address] [place] [id number] [address] [place] [address] October, Hyperparathyroidism E21.3 [place] [address] [place] [id number] [address] [place] [address] Sep, Hyperparathyroidism E21.3 ; Hypercholesterolemia E78.0 and Arthritis M19.90 [facility] [address] [facility] [id number] [address] [place] [address] Aug, [place] [address] [place] [id number] [address] [place] [phone] Aug, Deficiency of other specifie d B group vitamins E53.8 [facility] [address] [facility] [id number] [address] [place] [address] Aug, [facility] [address] [facility] [id number] [address] [place] [address] Jul, Urinary frequency R35.0 [facility] [address] [facility] [id number] [address] [place] [address] Jul, Urinary frequency R35.0 [facility] [address] [facility] [id number] [address] [place] [id number] Jul, [facility] [address] [facility] [id number] [address] [place] [address] Jul, [facility] [address] [facility] [id number] [address] [place] [address] Jun, Pain in left knee M25.562 [facility] [address] [facility] [id number] [address] [place] [address] Jun, [facility] [address] [facility] [id number] [address] [place] [address] May, Swelling of left knee joint M25.462 [facility] [address] [facility] [id number] [address] [place] [address] May, [facility] [address] [facility] [id number] [address] [place] [address] May, [facility] [address] [facility] [id number] [address] [place] [address] May, [facility] [address] [facility] [id number] [address] [place] [address] Apr, Renal insufficiency N28.9 an d Chronic kidney disease, stage 4 (severe) N18.4 [facility] [address] [facility] [id number] [address] [place] [phone] Apr, Unspecified kidney failure N 19 [facility] [address] [id number] [address] [place] [address] Apr, Unspecified kidney failure N 19 [facility] [address] [id number] [address] [place] [address] Apr, [facility] [address] [id number] [address] [place] [phone] Apr, Hyperparathyroidism, unspeci fied 252.00 [facility] [address] [id number] [address] [place] [phone] Apr, [facility] [address] [id number] [address] [place] [address] Mar, [facility] [address] [id number] [address] [place] [phone] Mar, [facility] [address] [facility] [id number] [address] [place] [address] Mar, Hyperparathyroidism, unspeci fied 252.00 [facility] [address] [id number] [address] [place] [address] Feb, [facility] [address] [id number] [address] [place] [id number] Feb, Otalgia 388.70 [facility] [address] [facility] [id number] [address] [place] [id number] Feb, [facility] [address] [id number] [address] [place] [id number] Feb, [facility] [address] [id number] [address] [place] [id number] Jan, [facility] [address] [id number] [address] [place] [id number] Jan, Hyperparathyroidism, unspeci fied 252.00 [facility] [address] [id number] [address] [place] [id number] Jan, [facility] [address] [facility] [id number] [address] [place] [phone] Jan, Other B-complex deficiencies 266.2 and Hyperparathyroidism, unspecified 252.00 [facility] [address] [id number] [address] [place] [id number] Jan, [facility] [address] [id number] [address] [place] [id number] Jan, [facility] [address] [id number] [address] [place] [id number] Jan, [facility] [address] [id number] [address] [place] [id number] Dec, [facility] [address] [id number] [address] [place] [id number] Dec, [facility] [address] [id number] [address] [place] [id number] Dec, [facility] [address] [id number] [address] [place] [id number] Nov, Routine check-up V70.0 and P re-op exam V72.84 [facility] [address] [id number] [address] [place] [id number] Nov, [facility] [address] [id number] [address] [place] [phone] Nov, [facility] [address] [id number] [address] [place] [id number] October, [facility] [address] [id number] [address] [place] [id number] October, Other B-complex deficiencies 266.2 [facility] [address] [id number] [address] [place] [id number] October, [facility] [address] [id number] [address] [place], [place] [id number] Sep, [facility] [address] [id number] [address] [place] [id number] Sep, [facility] [address] [id number] [facility] [place] [address] 20 Aug, 2014 [facility] [address] [id number] [address] [place] [address], [place] [address] 20 Aug, 2014 [facility] [address] [id number] [address] [place] [address], [place] [address] 17 Aug, 2014 [facility] [address] [id number] [address] [place] [address], [place] [address] 17 Aug, 2014 [facility] [address] [id number] [address] [place] [address], [place] [address] 11 Aug, 2014 [facility] [address] [id number] [address] [place] [address], [place] [address] 11 Aug, 2014 [facility] [address] [id number] [address] [place] [address], [place] [address] 18 Jul, 2014 [facility] [address] [id number] [address] [place] [address], [place] [address] 18 Jul, 2014 [facility] [address] [id number] [address] [place] [address], [place] [address] 17 Jul, 2014 [facility] [address] [id number] [address] [place] [address], [place] [address] 17 Jul, 2014 [facility] [address] [id number] [address] [place] [address], [place] [address] 12 Jul, 2014 [facility] [address] [id number] [address] [place] [address], [place] [address] 12 Jul, 2014 [facility] [address] [id number] [address] [place] [address], [place] [address] 10 Jul, 2014 [facility] [address] [id number] [address] [place] [address], [place] [address] 10 Jul, 2014 [facility] [address] [id number] [address] [place] [address], [place] [id number] 09 Jul, 2014 [facility] [address] [id number] [address] [place] [address] [place] [address] Jul, [facility] [address] [id number] [address] [place] [address], [place] [address] Jul, [facility] [address] [id number] [address] [place] [address], [place] [address] Jul, [facility] [address] [id number] [address] [place] [address], [place] [address] Jul, [facility] [address] [id number] [address] [place] [address], [place] [address] Jul, [facility] [address] [id number] [address] [place] [address], [place] [address] Jun, [facility] [address] [id number] [address] [place] [address], [place] [address] Jun, [facility] [address] [id number] [address] [place] [address], [place] [address] Jun, [facility] [address] [id number] [address] [place] [address], [place] [address] Jun, [facility] [address] [id number] [address] [place] [address], [place] [address] Jun, [facility] [address] [id number] [address] [place] [address], [place] [address] Jun, [facility] [address] [id number] [address] [place] [address], [place] [address] Jun, [facility] [address] [id number] [address] [place] [address], [place] [address] Jun, [facility] [address] [id number] [address] [place] [address], [place] [address] Jun, [facility] [address] [id number] [address] [place] [address], [place] [address] Jun, [facility] [address] [id number] [address] [place] [address], [place] [address] Jun, [facility] [address] [id number] [address] [place] [address], [place] [address] Jun, [facility] [address] [id number] [address] [place] [address], [place] [address] Jun, [facility] [address] [id number] [address] [place] [address], [place] [address] Jun, [facility] [address] [id number] [address] [place] [address], [place] [address] May, [facility] [address] [id number] [address] [place] [address], [place] [address] May, [facility] [address] [id number] [address] [place] [address], [place] [address] May, [facility] [address] [id number] [address] [place] [address], [place] [address] May, [facility] [address] [id number] [address] [place] [address], [place] [address] Apr, [facility] [address] [id number] [address] [place] [address], [place] [address] Apr, [facility] [address] [id number] [address] [place] [address], [place] [address] Apr, [facility] [address] [id number] [address] [place] [address], [place] [address] Apr, [facility] [address] [id number] [address] [place] [address], [place] [address] Apr, [facility] [address] [id number] [address] [place] [address], [place] [address] Apr, [facility] [address] [id number] [address] [place] [address], [place] [address] Mar, [facility] [address] [id number] [address] [place] [address], [place] [address] Mar, [facility] [address] [id number] [address] [place] [id number] 22 Mar, 2014 [facility] [address] [id number] [address] [place] [address], [place] [address] 22 Mar, 2014 [facility] [address] [id number] [address] [place] [id number] 15 Mar, 2014 [facility] [address] [id number] [address] [place] [address], [place] [address] 15 Mar, 2014 [facility] [address] [id number] [address] [place] [id number] 13 Mar, 2014 [facility] [address] [id number] [address] [place] [address], [place] [address] 13 Mar, 2014 [facility] [address] [id number] [address] [place] [address], [place] [address] 07 Mar, 2014 [facility] [address] [id number] [address] [place] [id number] 07 Mar, 2014 [facility] [address] [id number] [address] [place] [address], [place] [address] 07 Mar, 2014 [facility] [address] [id number] [address] [place] [id number] 07 Mar, 2014 [facility] [address] [id number] [address] [place] [id number] 06 Mar, 2014 [facility] [address] [id number] [address] [place] [id number] 26 Feb, 2013 [facility] [address] [id number] [address] [place] [id number] 26 Feb, 2013 [facility] [address] [id number] [address] [place] [address], [place] [address] 23 Feb, 2013 [facility] [address] [id number] [address] [place] [address], [place] [address] 23 Feb, 2013 [facility] [address] [id number] [address] [place] [address], [place] [address] 19 Feb, 2013 [facility] [address] [id number] [facility] [place] [address] 19 Feb, 2014 [facility] [address] [id number] [facility] [place] [address] 13 Feb, 2014 [facility] [address] [id number] [address] [place] [address], [place] [address] 13 Feb, 2014 [facility] [address] [id number] [address] [place] [address], [place] [address] 12 Feb, 2014 [facility] [address] [id number] [address] [place] [address], [place] [address] Feb, [facility] [address] [id number] [address] [place] [address], [place] [address] Jan, [facility] [address] [id number] [address] [place] [address], [place] [address] Jan, [facility] [address] [id number] [address] [place] [address], [place] [address] Dec, [facility] [address] [id number] [address] [place] [address], [place] [address] Dec, [facility] [address] [id number] [address] [place] [address], [place] [address] Dec, [facility] [address] [id number] [address] [place] [address], [place] [address] Dec, [facility] [address] [id number] [address] [place] [address], [place] [address] Dec, [facility] [address] [id number] [address] [place] [address], [place] [address] Dec, [facility] [address] [id number] [address] [place] [address], [place] [address] Nov, [facility] [address] [id number] [address] [place] [address], [place] [address] Nov, [facility] [address] [id number] [address] [place] [address], [place] [address] Nov, [facility] [address] [id number] [facility] [place] [address] Nov, [facility] [address] [id number] [address] [place] [address], [place] [address] October, [facility] [address] [id number] [address] [place] [address], [place] [address] October, [facility] [address] [id number] [address] [place] [address], [place] [address] October, [facility] [address] [id number] [address] [place] [address], [place] [address] October, [facility] [address] [id number] [address] [place] [address], [place] [address] October, [facility] [address] [id number] [address] [place] [address], [place] [address] October, [facility] [address] [id number] [address] [place] [address], [place] [address] October, [facility] [address] [id number] [address] [place] [address], [place] [address] October, [facility] [address] [id number] [address] [place] [address], [place] [address] October, [facility] [address] [id number] [address] [place] [address], [place] [address] October, [facility] [address] [id number] [address] [place] [address], [place] [address] October, [facility] [address] [id number] [address] [place] [address], [place] [address] October, [facility] [address] [id number] [address] [place] [address], [place] [address] October, [facility] [address] [id number] [address] [place] [address], [place] [address] October, [facility] [address] [id number] [address] [place] [address], [place] [address] October, [facility] [address] [id number] [address] [place] [address], [place] [address] October, [facility] [address] [id number] [address] [place] [address], [place] [address] Sep, [facility] [address] [id number] [address] [place] [address], [place] [address] Sep, [facility] [address] [id number] [address] [place] [address], [place] [address] Sep, [facility] [address] [id number] [address] [place] [address], [place] [address] Sep, [facility] [address] [id number] [address] [place] [address], [place] [address] Sep, [facility] [address] [id number] [address] [place] [address], [place] [address] Sep, [facility] [address] [id number] [address] [place] [address], [place] [address] Aug, [facility] [address] [id number] [address] [place] [address], [place] [address] Aug, [facility] [address] [id number] [address] [place] [address], [place] [address] Aug, [facility] [address] [id number] [address] [place] [address], [place] [address] Aug, [facility] [address] [id number] [address] [place] [address], [place] [address] Aug, [facility] [address] [id number] [address] [place] [address], [place] [address] Aug, [facility] [address] [id number] [address] [place] [address], [place] [address] Jul, [facility] [address] [id number] [address] [place] [address], [place] [address] Jul, [facility] [address] [id number] [address] [place] [address], [place] [address] Jul, [facility] [address] [id number] [address] [place] [address], [place] [address] Jul, [facility] [address] [id number] [address] [place] [address], [place] [address] Jun, [facility] [address] [id number] [address] [place] [address], [place] [address] Jun, [facility] [address] [id number] [address] [place] [address], [place] [address] May, [facility] [address] [id number] [address] [place] [address], [place] [address] May, [facility] [address] [id number] [address] [place] [address], [place] [address] May, [facility] [address] [id number] [address] [place] [address], [place] [address] May, [facility] [address] [id number] [address] [place] [address], [place] [address] May, [facility] [address] [id number] [address] [place] [address], [place] [address] Apr, [facility] [address] [id number] [address] [place] [address], [place] [address] Apr, [facility] [address] [id number] [address] [place] [id number] Apr, [facility] [address] [id number] [address] [place] [address], [place] [address] Apr, [facility] [address] [id number] [address] [place] [address], [place] [address] Apr, [facility] [address] [id number] [address] [place] [address], [place] [address] Apr, [facility] [address] [id number] [address] [place] [id number] 15 Mar, 2013 [facility] [address] [id number] [address] [place] [address], [place] [address] 15 Mar, 2013 [facility] [address] [id number] [address] [place] [address], [place] [address] 14 Mar, 2013 [facility] [address] [id number] [address] [place] [address], [place] [address] 14 Mar, 2013 [facility] [address] [id number] [address] [place] [address], [place] [address] 11 Mar, 2013 [facility] [address] [id number] [address] [place] [address], [place] [address] Mar, [facility] [address] [id number] [address] [place] [address], [place] [address] 23 Feb, 2013 [facility] [address] [id number] [address] [place] [address], [place] [address] Feb, [facility] [address] [id number] [address] [place] [address], [place] [id number] 04 Feb, 2013 [facility] [address] [id number] [address] [place] [address], [place] [address] Jan, [facility] [address] [id number] [address] [place] [address], [place] [address] Jan, [facility] [address] [id number] [address] [place] [address], [place] [address] Jan, [facility] [address] [id number] [address] [place] [address], [place] [address] Jan, [facility] [address] [id number] [address] [place] [address], [place] [address] Jan, [facility] [address] [id number] [address] [place] [address], [place] [address] Jan, [facility] [address] [id number] [address] [place] [address], [place] [address] Dec, [facility] [address] [id number] [address] [place] [address], [place] [address] Dec, [facility] [address] [id number] [address] [place] [address], [place] [address] Dec, [facility] [address] [id number] [address] [place] [address], [place] [address] Dec, [facility] [address] [id number] [address] [place] [address], [place] [address] Dec, [facility] [address] [id number] [address] [place] [address], [place] [address] Dec, [facility] [address] [id number] [address] [place] [address], [place] [address] Nov, [facility] [address] [id number] [address] [place] [address], [place] [address] Nov, [facility] [address] [id number] [address] [place] [address], [place] [address] Nov, [facility] [address] [id number] [address] [place] [address], [place] [address] Nov, [facility] [address] [id number] [address] [place] [address], [place] [id number] Nov, [facility] [address] [id number] [address] [place] [address], [place] [address] Nov, [facility] [address] [id number] [address] [place] [address], [place] [address] October, [facility] [address] [id number] [address] [place] [address], [place] [address] October, [facility] [address] [id number] [address] [place] [address], [place] [id number] October, [facility] [address] [id number] [address] [place] [address], [place] [address] October, [facility] [address] [id number] [address] [place] [address], [place] [id number] October, [facility] [address] [id number] [address] [place] [address], [place] [id number] 30 Sep, 2012 [facility] [address] [id number] [address] [place] [address], [place] [address] Sep, [facility] [address] [id number] [address] [place] [address], [place] [address] Sep, [facility] [address] [id number] [address] [place] [address], [place] [id number] 18 Sep, 2012 [facility] [address] [id number] [address] [place] [address], [place] [address] Sep, [facility] [address] [id number] [address] [place] [address], [place] [address] 26 Aug, 2012 [facility] [address] [id number] [address] [place] [address], [place] [address] Aug, [facility] [address] [id number] [address] [place] [address], [place] [id number] 04 Aug, 2012 [facility] [address] [id number] [address] [place] [address], [place] [id number] Jul, [facility] [address] [id number] [address] [place] [address], [place] [id number] Jul, [facility] [address] [id number] [address] [place] [address], [place] [address] Jul, [facility] [address] [id number] [address] [place] [address], [place] [id number] 08 Jul, 2012 [facility] [address] [id number] [address] [place] [address], [place] [id number] 06 Jul, 2012 [facility] [address] [id number] [address] [place] [address], [place] [id number] 05 Jul, 2012 [facility] [address] [id number] [address] [place] [address], [place] [id number] 15 Jun, 2012 [facility] [address] [id number] [address] [place] [address], [place] [id number] Apr, [facility] [address] [id number] [address] [place] [address], [place] [address] Apr, [facility] [address] [id number] [address] [place] [address], [place] [address] Apr, [facility] [address] [id number] [address] [place] [address], [place] [address] Apr, [facility] [address] [id number] [address] [place] [address], [place] [address] Mar, [facility] [address] [id number] [address] [place] [address], [place] [address] Mar, [facility] [address] [id number] [address] [place] [address], [place] [address] Mar, [facility] [address] [id number] [address] [place] [address], [place] [address] Mar, [facility] [address] [id number] [address] [place] [address], [place] [id number] Mar, [facility] [address] [id number] [address] [place] [address], [place] [id number] Feb, [facility] [address] [id number] [address] [place] [address], [place] [address] Jan, [facility] [address] [id number] [address] [place] [address], [place] [address] Jan, [facility] [address] [id number] [address] [place] [address], [place] [address] Jan, [facility] [address] [id number] [address] [place] [address], [place] [address] Dec, [facility] [address] [id number] [address] [place] [address], [place] [address] Nov, [facility] [address] [id number] [address] [place] [address], [place] [address] Nov, [facility] [address] [id number] [address] [place] [id number] Nov, [facility] [address] [id number] [address] [place] [id number] Nov, [facility] [address] [id number] [address] [place] [id number] Nov, [facility] [address] [id number] [address] [place] [id number] October, [facility] [address] [facility] [id number] [address] [place] [id number] October, [facility] [address] [facility] [id number] [address] [place] [id number] October, [facility] [address] [facility] [id number] [address] [place] [id number] October, [facility] [address] [facility] [id number] [address] [place] [id number] October, IMMUNIZATIONS No Known Immunizations SOCIAL HISTORY Never Assessed REASON FOR VISIT Controlled Med Refill 06/22/18 PLAN OF CARE VITAL SIGNS MEDICATIONS Medication Instructions Dosage Frequency Start Date End Date Duration S tatus Hydrocodone-Acetaminophen 10-325 MG Orally 3 times a day 1 tablet a s needed 8h May, 28 days Active RESULTS No Results PROCEDURES [...]
--- OUTSIDE RECORDS SUMMARY | 2020-01-25 07:56 | XMS REPORT ---
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 Active 00337666 Problem 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 Active 51945940 Problem Body mass index (BMI) of 40.0-44.9 in adult Z68.41 Active 150792627 Problem Mood disorder F39 Active 711261 05 Problem Unspecified kidney failure N19 Act chip 94130903 Problem Arthritis M19.90 Active 2030621 Problem BPV (benign positional vertigo), bilateral H81.13 Active 010048345 Problem Chronic kidney disease, stage 4 (severe) N18.4 Active 154217614 Problem Primary osteoarthritis of left knee M17.12 Active [id number] Problem Irritable bowel syndrome with both constipation and diarrh ea K58.2 Active 30649577 ALLERGIES No Information ENCOUNTERS Encounter Location Date Diagnosis [place] [address] [facility] [id number] [address] [place] [phone] Sep, [place] [address] [facility] [id number] [address] [place] [id number] Sep, Renal insufficiency N28.9 an d Unspecified kidney failure N19 [place] [address] [address] [place] [id number] [address] [place] [id number] Sep, Renal insufficiency N28.9 an d Unspecified kidney failure N19 [place] [address] [facility] [id number] [address] [place] [phone] Sep, Arthritis M19.90 [facility] [address] [facility] [id number] [address] [place] [phone] Aug, Exercise counseling Z71.82 [facility] [address] [id number] [address] [place] [id number] Aug, [facility] [address] [facility] [id number] [address] [place] [id number] 27 Jul, 2018 Labyrinthitis of left ear H8 3.02 [facility] [address] [id number] [address] [place] [id number] 22 Jul, 2018 Labyrinthitis of left ear H8 3.02 [facility] [address] [facility] [id number] [address] [place] [id number] 19 Jul, 2018 Exercise counseling Z71.82 [place] [address] [facility] [id number] [address] [place] [id number] 18 Jul, 2018 [place] [address] [facility] [id number] [address] [place] [id number] 14 Jul, 2018 Arthritis M19.90 [place] [address] [facility] [id number] [address] [place] [id number] 13 Jul, 2018 Encounter for Medicare annua l wellness exam Z00.00 ; Chronic kidney disease, stage 4 (severe) N18.4 ; Body mass index (BMI) of 40.0-44.9 in adult Z68.41 ; Hyperparathyroidism E21.3 and BMI 40.0-44.9, adult Z68.41 [place] [address] [facility] [id number] [address] [place] [id number] 13 Jul, 2018 Encounter for Medicare annua l wellness exam Z00.00 ; Chronic kidney disease, stage 4 (severe) N18.4 ; Hyperparathyroidism E21.3 ; Body mass index (BMI) of 40.0-44.9 in adult Z68.41 and Encounter for immunization Z23 [facility] [address] [facility] [id number] [address] [place] [phone] Jul, Tail bone pain M53.3 [facility] [address] [id number] [address] [place] [phone] Jun, Exercise counseling Z71.82 [facility] [address] [id number] [address] [place] [phone] Jun, Labyrinthitis of left ear H8 3.02 [facility] [address] [id number] [address] [place] [id number] Jun, Tail bone pain M53.3 ; Irrit able bowel syndrome with both constipation and diarrhea K58.2 and Dysfunction of left eustachian tube H69.82 [facility] [address] [id number] [address] [place] [address] Jun, Exercise counseling Z71.82 [facility] [address] [id number] [address] [place] [address] Jun, Arthritis M19.90 [facility] [address] [id number] [address] [place] [phone] Jun, Irritable bowel syndrome wit h both constipation and diarrhea K58.2 ; Tail bone pain M53.3 and Dysfunction of left eustachian tube H69.82 [facility] [address] [id number] [address] [place] [address] Jun, Exercise counseling Z71.82 [facility] [address] [id number] [address] [place] [phone] Jun, Exercise counseling Z71.82 [facility] [address] [id number] [address] [place] [address] Jun, Labyrinthitis of left ear H8 3.02 [facility] [address] [id number] [address] [place] [address] May, Exercise counseling Z71.82 [facility] [address] [id number] [address] [place] [address] May, Arthritis M19.90 [place] [address] [id number] [address] [place] [id number] May, Exercise counseling Z71.82 [facility] [address] [id number] [address] [place] [id number] May, Exercise counseling Z71.82 [facility] [address] [id number] [address] [place] [address] May, Labyrinthitis of left ear H8 3.02 [facility] [address] [id number] [address] [place] [address] May, Exercise counseling Z71.82 [facility] [address] [id number] [address] [place] [address] Apr, Arthritis M19.90 [facility] [address] [id number] [address] [place] [address] Apr, Exercise counseling Z71.82 [facility] [address] [id number] [address] [place] [address] Apr, Exercise counseling Z71.82 [facility] [address] [id number] [address] [place] [phone] Apr, Primary osteoarthritis of le ft knee M17.12 [facility] [address] [id number] [address] [place] [address] Apr, Labyrinthitis of left ear H8 3.02 [facility] [address] [id number] [address] [place] [id number] Mar, Arthritis M19.90 [facility] [address] [id number] [address] [place] [phone] Mar, [facility] [address] [facility] [id number] [address] [place] [id number] Mar, Chronic kidney disease, stag e 4 (severe) N18.4 [facility] [address] [id number] [address] [place] [address] Mar, Chronic kidney disease, stag e 4 (severe) N18.4 [facility] [address] [facility] [id number] [address] [place] [id number] Mar, Labyrinthitis of left ear H8 3.02 [facility] [address] [facility] [id number] [address] [place] [phone] Mar, Chronic kidney disease, stag e 4 (severe) N18.4 ; Knee pain, left anterior M25.562 ; Deficiency of other specified B group vitamins E53.8 and Encounter for immunization Z23 [facility] [address] [facility] [id number] [address] [place] [id number] Mar, Arthritis M19.90 [facility] [address] [facility] [id number] [address] [place] [id number] Feb, Labyrinthitis of left ear H8 3.02 [facility] [address] [place] [id number] [address] [place] [id number] Feb, Arthritis M19.90 [facility] [address] [facility] [id number] [address] [place] [phone] Jan, Labyrinthitis of left ear H8 3.02 [facility] [address] [facility] [id number] [address] [place] [address] Jan, Arthritis M19.90 [facility] [address] [facility] [id number] [address] [place] [id number] Dec, Labyrinthitis of left ear H8 3.02 [facility] [address] [facility] [id number] [address] [place] [id number] Nov, Arthritis M19.90 [facility] [address] [facility] [id number] [address] [place] [phone] Nov, Labyrinthitis of left ear H8 3.02 [facility] [address] [facility] [id number] [address] [place] [address] Nov, BMI 40.0-44.9, adult Z68.41 ; Chronic kidney disease, stage 4 (severe) N18.4 and Acute right-sided thoracic back pain M54.6 [facility] [address] [place] [id number] [address] [place] [id number] October, Labyrinthitis of left ear H8 3.02 and Arthritis M19.90 [facility] [address] [place] [id number] [address] [place] [id number] Sep, BPV (benign positional verti go), bilateral H81.13 ; Dysfunction of left eustachian tube H69.82 and BMI 40.0-44.9, adult Z68.41 [place] [address] [place] [id number] [place] [address] Sep, Labyrinthitis of left ear H8 3.02 and Arthritis M19.90 [place] [address] [place] [id number] [address] [place] [address] Sep, [place] [address] [place] [id number] [address] [place] [id number] Sep, [place] [address] [place] [id number] [address] [place] [id number] Sep, Chronic kidney disease, stag e 4 (severe) N18.4 [facility] [address] [place] [id number] [address] [place] [id number] Sep, Chronic kidney disease, stag e 4 (severe) N18.4 [facility] [address] [facility] [id number] [address] [place] [id number] Aug, Labyrinthitis of left ear H8 3.02 and Arthritis M19.90 [facility] [address] [facility] [id number] [address] [place] [id number] Aug, [facility] [address] [facility] [id number] [address] [place] [id number] Jul, [facility] [address] [place] [id number] [address] [place] [address] Jul, Arthritis M19.90 and Labyrin thitis of left ear H83.02 [facility] [address] [facility] [id number] [address] [place] [id number] Jul, [facility] [address] [facility] [id number] [address] [place] [id number] Jun, [facility] [address] [facility] [id number] [address] [place] [address] Jun, Arthritis M19.90 and Labyrin thitis of left ear H83.02 [place] [address] [facility] [id number] [address] [place] [address] Jun, Pre-op evaluation Z01.818 ; BMI 40.0-44.9, adult Z68.41 and Encounter for immunization Z23 [place] [address] [facility] [id number] [address] [place] [address] May, Arthritis M19.90 and Labyrin thitis of left ear H83.02 [place] [address] [facility] [id number] [address] [place] [address] Apr, Labyrinthitis of left ear H8 3.02 [place] [address] [facility] [id number] [address] [place] [address] Apr, Arthritis M19.90 and Labyrin thitis of left ear H83.02 [place] [address] [facility] [id number] [address] [place] [address] Mar, Arthritis M19.90 and Labyrin thitis of left ear H83.02 [place] [address] [facility] [id number] [address] [place] [id number] 05 Mar, 2017 Chronic kidney disease, stag e 4 (severe) N18.4 [facility] [address] [facility] [id number] [address] [place] [id number] 06 Feb, 2017 Arthritis M19.90 and Labyrin thitis of left ear H83.02 [place] [address] [facility] [id number] [address] [place] [id number] Jan, Labyrinthitis of left ear H8 3.02 and Deficiency of other specified B group vitamins E53.8 [facility] [address] [facility] [id number] [address] [place] [id number] Dec, Arthritis M19.90 [facility] [address] [facility] [id number] [address] [place] [id number] Dec, BPV (benign positional verti go), bilateral H81.13 [facility] [address] [facility] [id number] [address] [place] [id number] Dec, [facility] [address] [facility] [id number] [address] [place] [id number] Dec, [facility] [address] [place] [id number] [address] [place] [id number] Dec, [facility] [address] [facility] [id number] [address] [place] [address] Nov, Arthritis M19.90 and Deficie ncy of other specified B group vitamins E53.8 [facility] [address] [facility] [id number] [address] [place] [phone] Nov, Arthritis M19.90 [facility] [address] [facility] [id number] [address] [place] [phone] Nov, Hyperparathyroidism E21.3 [facility] [address] [facility] [id number] [address] [place] [id number] October, [facility] [address] [facility] [id number] [address] [place] [id number] October, Hyperparathyroidism E21.3 [facility] [address] [facility] [id number] [address] [place] [address] October, [facility] [address] [facility] [id number] [address] [place] [id number] October, Renal insufficiency N28.9 an d Hyperparathyroidism E21.3 [facility] [address] [facility] [id number] [address] [place] [phone] October, [facility] [address] [phone] October, Renal insufficiency N28.9 an d Hyperparathyroidism E21.3 [facility] [address] [facility] [id number] [address] [place] [address] October, Arthritis M19.90 [facility] [address] [facility] [id number] [address] [place] [address] Sep, [facility] [address] [place] [id number] [address] [place] [id number] Sep, Lumbar neuritis M54.16 ; Tho racic abscess J86.9 and Deficiency of other specified B group vitamins E53.8 [facility] [address] [facility] [id number] [address] [place] [address] Sep, [facility] [address] [facility] [id number] [address] [place] [address] Aug, Arthritis M19.90 [facility] [address] [place] [id number] [address] [place] [id number] Aug, Hyperparathyroidism E21.3 [facility] [address] [place] [id number] [address] [place] [phone] Aug, Hyperparathyroidism E21.3 [facility] [address] [place] [id number] [address] [place] [id number] Aug, Arthritis M19.90 [facility] [address] [place] [id number] [address] [place] [id number] Jul, Mass of throat R22.1 [facility] [address] [place] [id number] [address] [place] [id number] Jul, [facility] [address] [place] [id number] [address] [place] [address] Jul, Arthritis M19.90 [facility] [address] [id number] [address] [place] [address] Jun, Arthritis M19.90 [facility] [address] [facility] [id number] [address] [place] [id number] Jun, [facility] [address] [facility] [id number] [address] [place] [phone] Jun, Renal insufficiency N28.9 an d 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 [facility] [address] [facility] [id number] [address] [place] [id number] 05 Jun, 2016 Medicare welcome exam Z00.00 ; Encounter for immunization Z23 ; Arthritis M19.90 ; Medicare annual wellness visit, initial Z00.00 ; Medicare annual wellness visit, subsequent Z00.00 and Deficiency of other specified B group vitamins E53.8 [facility] [address] [facility] [id number] [address] [place] [phone] 29 May, 2016 Renal insufficiency N28.9 an d 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 [facility] [address] [id number] [address] [place] [id number] 19 May, 2016 Renal insufficiency N28.9 [facility] [address] [facility] [id number] [address] [place] [id number] 16 May, 2016 Renal insufficiency N28.9 [facility] [address] [facility] [id number] [address] [place] [id number] 14 May, 2016 [facility] [address] [facility] [id number] [address] [place] [phone] Apr, [facility] [address] [facility] [id number] [address] [place] [phone] Apr, [facility] [address] [facility] [id number] [address] [place] [id number] 14 Apr, 2016 Mass of throat R22.1 [facility] [address] [facility] [id number] [address] [place] [id number] 10 Apr, 2016 [facility] [address] [id number] [address] [place] [id number] 10 Apr, 2016 Mass of throat R22.1 [facility] [address] [id number] [address] [place] [id number] 04 Apr, 2016 Mass of throat R22.1 [facility] [address] [id number] [address] [place] [phone] Mar, [facility] [address] [id number] [address] [place] [phone] Mar, [facility] [address] [id number] [address] [place] [id number] Mar, [facility] [address] [id number] [address] [place] [id number] 24 Mar, 2016 Parathyroid abnormality E21. 5 and Encounter for immunization Z23 [facility] [address] [id number] [address] [place] [phone] Mar, [facility] [address] [id number] [address] [place] [phone] Mar, [facility] [address] [id number] [address] [place] [phone] 21 Feb, 2016 Renal insufficiency N28.9 an d Hyperparathyroidism E21.3 [facility] [address] [id number] [address] [place] [id number] 19 Feb, 2016 [facility] [address] [id number] [address] [place] [id number] 15 Feb, 2016 Renal insufficiency N28.9 an d Hyperparathyroidism E21.3 [facility] [address] [id number] [address] [place] [id number] 14 Feb, 2016 [facility] [address] [facility] [id number] [address] [place] [id number] 12 Feb, 2016 [facility] [address] [facility] [id number] [address] [place] [id number] 09 Feb, 2016 [facility] [address] [facility] [id number] [address] [place] [id number] Jan, [facility] [address] [facility] [id number] [address] [place] [id number] Jan, Arthritis M19.90 ; Lumbago w ith sciatica, right side M54.41 and Other chronic pain G89.29 [facility] [address] [facility] [id number] [address] [place] [id number] Jan, [place] [address] [place] [id number] [address] [place] [id number] Dec, Arthritis M19.90 ; Lumbago w ith sciatica, right side M54.41 and Other chronic pain G89.29 [place] [address] [place] [id number] [address] [place] [address] Nov, Deficiency of other specifie d B group vitamins E53.8 ; Primary insomnia F51.01 ; Mood disorder F39 and Lumbago with sciatica, right side M54.41 [place] [address] [address] [facility] [id number] [address] [place] [id number] Nov, Hyperparathyroidism E21.3 [place] [address] [address] [place] [id number] [address] [place] [id number] Nov, Unspecified kidney failure N 19 and Hyperparathyroidism E21.3 [place] [address] [address] [place] [id number] [address] [place] [phone] October, Hyperparathyroidism E21.3 [place] [address] [address] [place] [id number] [address] [place] [id number] October, [place] [address] [address] [facility] [id number] [address] [place] [id number] October, Hyperparathyroidism E21.3 [place] [address] [address] [place] [id number] [place] [id number] October, Hyperparathyroidism E21.3 [place] [address] [address] [place] [id number] [place] [id number] Sep, Hyperparathyroidism E21.3 ; Hypercholesterolemia E78.0 and Arthritis M19.90 [facility] [address] [facility] [id number] [address] [place] [phone] Aug, [facility] [address] [place] [id number] [address] [place] [id number] Aug, Deficiency of other specifie d B group vitamins E53.8 [facility] [address] [place] [id number] [place] [id number] Aug, [facility] [address] [place] [id number] [place] [phone] Jul, Urinary frequency R35.0 [facility] [address] [facility] [id number] [address] [place] [id number] Jul, Urinary frequency R35.0 [facility] [address] [place] [id number] [place] [phone] Jul, [facility] [address] [place] [id number] [place] [phone] Jul, [facility] [address] [place] [id number] [place] [id number] Jun, Pain in left knee M25.562 [facility] [address] [place] [id number] [place] [id number] Jun, [facility] [address] [place] [id number] [place] [id number] May, Swelling of left knee joint M25.462 [facility] [address] [place] [id number] [place] [id number] May, [facility] [address] [place] [id number] [place] [phone] May, [facility] [address] [place] [id number] [place] [phone] May, [facility] [address] [place] [id number] [place] [phone] Apr, Renal insufficiency N28.9 an d Chronic kidney disease, stage 4 (severe) N18.4 [facility] [address] [facility] [id number] [address] [place] [id number] Apr, Unspecified kidney failure N 19 [facility] [address] [facility] [id number] [address] [place] [phone] Apr, Unspecified kidney failure N 19 [facility] [address] [facility] [id number] [address] [place] [phone] Apr, [facility] [address] [facility] [place] [id number] [address] [place] [id number] Apr, Hyperparathyroidism, unspeci fied 252.00 [facility] [address] [facility] [place] [id number] [address] [place] [id number] Apr, [facility] [address] [facility] [place] [id number] [address] [place] [id number] Mar, [facility] [address] [id number] [address] [place] [id number] Mar, [facility] [address] [facility] [place] [id number] [address] [place] [id number] Mar, Hyperparathyroidism, unspeci fied 252.00 [facility] [address] [facility] [place] [id number] [address] [place] [id number] Feb, [facility] [address] [facility] [place] [id number] [address] [place] [id number] Feb, Otalgia 388.70 [facility] [address] [facility] [place] [id number] [address] [place] [id number] Feb, [facility] [address] [facility] [place] [id number] [address] [place] [id number] Feb, [facility] [address] [facility] [place] [id number] [address] [place] [id number] Jan, [facility] [address] [id number] [address] [place] [id number] Jan, Hyperparathyroidism, unspeci fied 252.00 [facility] [address] [id number] [address] [place] [id number] Jan, [facility] [address] [id number] [address] [place] [id number] Jan, Other B-complex deficiencies 266.2 and Hyperparathyroidism, unspecified 252.00 [facility] [address] [id number] [address] [place] [id number] Jan, [facility] [address] [id number] [address] [place] [id number] Jan, [facility] [address] [id number] [address] [place] [id number] Jan, [facility] [address] [id number] [address] [place] [id number] Dec, [facility] [address] [id number] [address] [place] [id number] Dec, [facility] [address] [id number] [address] [place] [id number] Dec, [facility] [address] [id number] [address] [place] [id number] Nov, Routine check-up V70.0 and P re-op exam V72.84 [facility] [address] [id number] [address] [place] [id number] Nov, [facility] [address] [id number] [address] [place] [phone] Nov, [facility] [address] [id number] [address] [place] [id number] October, [facility] [address] [id number] [address] [place] [id number] October, Other B-complex deficiencies 266.2 [facility] [address] [id number] [address] [place] [address], [place] [address] 12 Oct, 2014 [facility] [address] [id number] [address] [place] [address], [place] [address] 14 Sep, 2014 [facility] [address] [id number] [address] [place] [address], [place] [address] 13 Sep, 2014 [facility] [address] [id number] [address] [place] [address], [place] [address] 20 Aug, 2014 [facility] [address] [id number] [address] [place] [address], [place] [address] 20 Aug, 2014 [facility] [address] [id number] [address] [place] [address], [place] [address] 17 Aug, 2014 [facility] [address] [id number] [address] [place] [address], [place] [address] 17 Aug, 2014 [facility] [address] [id number] [address] [place] [address], [place] [address] 11 Aug, 2014 [facility] [address] [id number] [address] [place] [address], [place] [address] 11 Aug, 2014 [facility] [address] [id number] [address] [place] [address], [place] [address] 18 Jul, 2014 [facility] [address] [id number] [address] [place] [address], [place] [address] 18 Jul, 2014 [facility] [address] [id number] [address] [place] [address], [place] [address] 17 Jul, 2014 [facility] [address] [id number] [address] [place] [address], [place] [address] 17 Jul, 2014 [facility] [address] [id number] [address] [place] [address], [place] [address] 12 Jul, 2014 [facility] [address] [id number] [address] [place] [address], [place] [address] 12 Jul, 2014 [facility] [address] [id number] [address] [place] [address], [place] [address] 10 Jul, 2014 [facility] [address] [id number] [address] [place] [address], [place] [address] Jul, 2014 [facility] [address] [id number] [address] [place] [address], [place] [address] Jul, [facility] [address] [id number] [address] [place] [address], [place] [address] Jul, 2014 [facility] [address] [id number] [address] [place] [address], [place] [address] Jul, 2014 [facility] [address] [id number] [address] [place] [address], [place] [address] Jul, [facility] [address] [id number] [address] [place] [address], [place] [address] Jul, [facility] [address] [id number] [address] [place] [address], [place] [address] Jul, [facility] [address] [id number] [address] [place] [address], [place] [address] Jun, [facility] [address] [id number] [address] [place] [address], [place] [address] Jun, [facility] [address] [id number] [address] [place] [address], [place] [address] Jun, [facility] [address] [id number] [address] [place] [address], [place] [address] Jun, [facility] [address] [id number] [address] [place] [address], [place] [address] Jun, [facility] [address] [id number] [address] [place] [address], [place] [address] Jun, [facility] [address] [id number] [address] [place] [address], [place] [address] Jun, [facility] [address] [id number] [address] [place] [address], [place] [address] Jun, [facility] [address] [id number] [address] [place] [address], [place] [address] Jun, [facility] [address] [id number] [address] [place] [address], [place] [address] Jun, [facility] [address] [id number] [address] [place] [address], [place] [address] Jun, [facility] [address] [id number] [address] [place] [address], [place] [address] Jun, [facility] [address] [id number] [address] [place] [address], [place] [address] Jun, [facility] [address] [id number] [address] [place] [address], [place] [address] Jun, [facility] [address] [id number] [address] [place] [address], [place] [address] May, [facility] [address] [id number] [address] [place] [address], [place] [address] May, [facility] [address] [id number] [address] [place] [address], [place] [address] May, [facility] [address] [id number] [address] [place] [address], [place] [address] May, [facility] [address] [id number] [address] [place] [address], [place] [address] Apr, [facility] [address] [id number] [address] [place] [address], [place] [address] Apr, [facility] [address] [id number] [address] [place] [address], [place] [address] Apr, [facility] [address] [id number] [address] [place] [address], [place] [address] Apr, [facility] [address] [id number] [address] [place] [address], [place] [address] Apr, [facility] [address] [id number] [address] [place] [address], [place] [address] Apr, [facility] [address] [id number] [address] [place] [address], [place] [address] Mar, [facility] [address] [id number] [address] [place] [address], [place] [address] Mar, [facility] [address] [id number] [address] [place] [address], [place] [address] Mar, [facility] [address] [id number] [address] [place] [address], [place] [address] Mar, [facility] [address] [id number] [address] [place] [address], [place] [address] Mar, [facility] [address] [id number] [address] [place] [address], [place] [address] Mar, [facility] [address] [id number] [address] [place] [address], [place] [address] Mar, [facility] [address] [id number] [address] [place] [address], [place] [address] Mar, [facility] [address] [id number] [address] [place] [address], [place] [address] Mar, [facility] [address] [id number] [address] [place] [address] Mar, [facility] [address] [id number] [address] [place] [address] Mar, [facility] [address] [id number] [address] [place] [id number] Mar, [facility] [address] [id number] [address] [place] [address], [place] [address] Mar, [facility] [address] [id number] [address] [place] [id number] Feb, [facility] [address] [id number] [address] [place] [id number] Feb, [facility] [address] [id number] [address] [place] [id number] 23 Feb, 2013 [facility] [address] [id number] [address] [place] [address], [place] [address] 23 Feb, 2013 [facility] [address] [id number] [address] [place] [address], [place] [address] 19 Feb, 2014 [facility] [address] [id number] [address] [place] [address], [place] [address] 19 Feb, 2014 [facility] [address] [id number] [address] [place] [address], [place] [address] 13 Feb, 2014 [facility] [address] [id number] [address] [place] [address], [place] [address] 13 Feb, 2014 [facility] [address] [id number] [address] [place] [address], [place] [address] Feb, [facility] [address] [id number] [address] [place] [address], [place] [address] Feb, [facility] [address] [id number] [address] [place] [address], [place] [address] Jan, [facility] [address] [id number] [address] [place] [address], [place] [address] Jan, [facility] [address] [id number] [address] [place] [address], [place] [address] Dec, [facility] [address] [id number] [address] [place] [address], [place] [address] Dec, [facility] [address] [id number] [address] [place] [address], [place] [address] Dec, [facility] [address] [id number] [address] [place] [address], [place] [address] Dec, [facility] [address] [id number] [address] [place] [address], [place] [address] Dec, [facility] [address] [id number] [address] [place] [address], [place] [address] Dec, [facility] [address] [id number] [facility] [place] [address] Nov, [facility] [address] [id number] [facility] [place] [address] Nov, [facility] [address] [id number] [facility] [place] [address] Nov, [facility] [address] [id number] [facility] [place] [address] Nov, [facility] [address] [id number] [facility] [place] [address] October, [facility] [address] [id number] [address] [place] [address], [place] [address] October, [facility] [address] [id number] [address] [place] [address], [place] [address] October, [facility] [address] [id number] [address] [place] [address], [place] [address] October, [facility] [address] [id number] [address] [place] [address], [place] [address] October, [facility] [address] [id number] [address] [place] [address], [place] [address] October, [facility] [address] [id number] [address] [place] [address], [place] [address] October, [facility] [address] [id number] [address] [place] [address], [place] [address] October, [facility] [address] [id number] [address] [place] [address], [place] [address] October, [facility] [address] [id number] [address] [place] [address], [place] [address] October, [facility] [address] [id number] [address] [place] [address], [place] [address] October, [facility] [address] [id number] [address] [place] [address], [place] [address] October, [facility] [address] [id number] [facility] [place] [address] October, [facility] [address] [id number] [facility] [place] [address] October, [facility] [address] [id number] [address] [place] [address], [place] [address] October, [facility] [address] [id number] [address] [place] [address], [place] [address] October, [facility] [address] [id number] [address] [place] [address], [place] [address] Sep, [facility] [address] [id number] [address] [place] [address], [place] [address] Sep, [facility] [address] [id number] [address] [place] [address], [place] [address] Sep, [facility] [address] [id number] [address] [place] [address], [place] [address] Sep, [facility] [address] [id number] [address] [place] [address], [place] [address] Sep, [facility] [address] [id number] [address] [place] [address], [place] [address] Sep, [facility] [address] [id number] [address] [place] [address], [place] [address] Aug, [facility] [address] [id number] [address] [place] [address], [place] [address] Aug, [facility] [address] [id number] [address] [place] [address], [place] [address] Aug, [facility] [address] [id number] [address] [place] [address], [place] [address] Aug, [facility] [address] [id number] [address] [place] [address], [place] [address] Aug, [facility] [address] [id number] [address] [place] [address], [place] [address] Aug, [facility] [address] [id number] [address] [place] [address], [place] [address] Jul, [facility] [address] [id number] [address] [place] [address], [place] [address] Jul, [facility] [address] [id number] [address] [place] [address], [place] [address] Jul, [facility] [address] [id number] [address] [place] [address], [place] [address] Jul, [facility] [address] [id number] [address] [place] [address], [place] [address] Jun, [facility] [address] [id number] [address] [place] [address], [place] [address] Jun, [facility] [address] [id number] [address] [place] [address], [place] [address] May, [facility] [address] [id number] [address] [place] [address], [place] [address] May, [facility] [address] [id number] [address] [place] [address], [place] [address] May, [facility] [address] [id number] [address] [place] [address], [place] [address] May, [facility] [address] [id number] [address] [place] [address], [place] [address] May, [facility] [address] [id number] [address] [place] [address], [place] [address] Apr, [facility] [address] [id number] [address] [place] [address], [place] [address] Apr, [facility] [address] [id number] [address] [place] [address], [place] [address] Apr, [facility] [address] [id number] [address] [place] [address], [place] [address] Apr, [facility] [address] [id number] [address] [place] [address], [place] [address] 04 Apr, 2013 [facility] [address] [id number] [address] [place] [address], [place] [address] 04 Apr, 2013 [facility] [address] [id number] [address] [place] [address], [place] [address] 15 Mar, 2013 [facility] [address] [id number] [address] [place] [address], [place] [address] 15 Mar, 2013 [facility] [address] [id number] [address] [place] [address], [place] [address] 14 Mar, 2013 [facility] [address] [id number] [address] [place] [address], [place] [address] 14 Mar, 2013 [facility] [address] [id number] [address] [place] [address], [place] [address] 11 Mar, 2013 [facility] [address] [id number] [address] [place] [address], [place] [address] Mar, [facility] [address] [id number] [address] [place] [address], [place] [address] 23 Feb, 2013 [facility] [address] [id number] [address] [place] [id number] 19 Feb, 2013 [facility] [address] [id number] [address] [place] [id number] Feb, [facility] [address] [id number] [address] [place] [id number] 30 Jan, 2013 [facility] [address] [id number] [address] [place] [address], [place] [address] Jan, [facility] [address] [id number] [address] [place] [address], [place] [address] Jan, [facility] [address] [id number] [address] [place] [id number] 16 Jan, 2013 [facility] [address] [id number] [address] [place] [id number] Jan, [facility] [address] [id number] [address] [place] [address], [place] [address] Jan, [facility] [address] [id number] [address] [place] [address], [place] [address] Dec, [facility] [address] [id number] [address] [place] [address], [place] [address] Dec, [facility] [address] [id number] [address] [place] [address], [place] [address] Dec, [facility] [address] [id number] [address] [place] [address], [place] [address] Dec, [facility] [address] [id number] [address] [place] [address], [place] [address] Dec, [facility] [address] [id number] [address] [place] [address], [place] [address] Dec, [facility] [address] [id number] [address] [place] [address], [place] [address] Nov, [facility] [address] [id number] [address] [place] [address], [place] [address] Nov, [facility] [address] [id number] [address] [place] [address], [place] [address] Nov, [facility] [address] [id number] [address] [place] [address], [place] [address] Nov, [facility] [address] [id number] [address] [place] [address], [place] [address] Nov, [facility] [address] [id number] [address] [place] [address], [place] [address] Nov, [facility] [address] [id number] [address] [place] [address], [place] [address] October, [facility] [address] [id number] [address] [place] [address], [place] [address] October, [facility] [address] [id number] [address] [place] [address], [place] [address] October, [facility] [address] [id number] [address] [place] [address], [place] [address] October, [facility] [address] [id number] [address] [place] [address], [place] [address] October, [facility] [address] [id number] [address] [place] [address], [place] [id number] 30 Sep, 2012 [facility] [address] [id number] [address] [place] [address], [place] [address] Sep, [facility] [address] [id number] [address] [place] [address], [place] [address] Sep, [facility] [address] [id number] [address] [place] [address], [place] [id number] 18 Sep, 2012 [facility] [address] [id number] [address] [place] [address], [place] [address] Sep, [facility] [address] [id number] [address] [place] [address], [place] [address] Aug, [facility] [address] [id number] [address] [place] [address], [place] [address] Aug, [facility] [address] [id number] [address] [place] [address], [place] [address] Aug, [facility] [address] [id number] [address] [place] [address], [place] [address] Jul, [facility] [address] [id number] [address] [place] [address], [place] [address] Jul, [facility] [address] [id number] [address] [place] [address], [place] [address] Jul, [facility] [address] [id number] [address] [place] [address], [place] [id number] 08 Jul, 2012 [facility] [address] [id number] [address] [place] [address], [place] [address] Jul, [facility] [address] [id number] [address] [place] [address], [place] [id number] Jul, [facility] [address] [id number] [address] [place] [id number] Jun, [facility] [address] [id number] [address] [place] [address], [place] [address] Apr, [facility] [address] [id number] [address] [place] [address], [place] [address] Apr, [facility] [address] [id number] [address] [place] [address], [place] [address] Apr, [facility] [address] [id number] [address] [place] [address], [place] [address] Apr, [facility] [address] [id number] [address] [place] [address], [place] [address] Mar, [facility] [address] [id number] [address] [place] [address], [place] [address] Mar, [facility] [address] [id number] [address] [place] [address], [place] [address] Mar, [facility] [address] [id number] [address] [place] [address], [place] [address] Mar, [facility] [address] [id number] [address] [place] [id number] Mar, [facility] [address] [id number] [address] [place] [id number] Feb, [facility] [facility] [address] [id number] [address] [place] [address], [place] [id number] Jan, [facility] [address] [id number] [address] [place] [address], [place] [id number] Jan, [facility] [address] [id number] [address] [place] [address], [place] [id number] Jan, [facility] [address] [id number] [address] [place] [id number] Dec, [facility] [address] [id number] [address] [place] [id number] Nov, [facility] [address] [id number] [address] [place] [id number] Nov, [facility] [address] [id number] [address] [place] [id number] Nov, [facility] [address] [id number] [address] [place] [id number] Nov, [facility] [address] [id number] [address] [place] [id number] Nov, [facility] [address] [id number] [address] [place] [id number] October, [facility] [address] [id number] [address] [place] [id number] October, [facility] [address] [id number] [address] [place] [id number] October, [facility] [address] [id number] [address] [place] [id number] October, [facility] [address] [id number] [address] [place] [id number] October, IMMUNIZATIONS No Known Immunizations SOCIAL HISTORY Never Assessed REASON FOR VISIT [facility] [place]AN OF CARE VITAL SIGNS MEDICATIONS Unknown [...]
--- OUTSIDE RECORDS SUMMARY | 2020-01-25 07:56 | XMS REPORT ---
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 Active 82813130 Problem 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 Active 24120043 Problem Body mass index (BMI) of 40.0-44.9 in adult Z68.41 Active 869940037 Problem Mood disorder F39 Active 945822 05 Problem Unspecified kidney failure N19 Act chip 60135061 Problem Arthritis M19.90 Active 5839137 Problem BPV (benign positional vertigo), bilateral H81.13 Active 657524294 Problem Chronic kidney disease, stage 4 (severe) N18.4 Active 705615423 Problem Primary osteoarthritis of left knee M17.12 Active [id number] Problem Irritable bowel syndrome with both constipation and diarrh ea K58.2 Active 37552434 ALLERGIES No Information ENCOUNTERS Encounter Location Date Diagnosis [place] [id number] [facility] [id number] [address] [place] [phone] Sep, Renal insufficiency N28.9 an d Unspecified kidney failure N19 [facility] [address] [facility] [id number] [address] [place] [phone] Sep, Renal insufficiency N28.9 an d Unspecified kidney failure N19 [facility] [address] [facility] [id number] [address] [place] [id number] Sep, Arthritis M19.90 [place] [id number] [facility] [id number] [address] [place] [id number] 18 Aug, 2018 Exercise counseling Z71.82 [facility] [address] [facility] [id number] [address] [place] [id number] 08 Aug, 2018 [facility] [address] [facility] [id number] [address] [place] [id number] 27 Jul, 2018 Labyrinthitis of left ear H8 3.02 [place] [address] [facility] [id number] [address] [place] [phone] 22 Jul, 2018 Labyrinthitis of left ear H8 3.02 [facility] [address] [facility] [id number] [address] [place] [id number] 19 Jul, 2018 Exercise counseling Z71.82 [place] [address] [facility] [id number] [address] [place] [id number] 18 Jul, 2018 [place] [address] [place] [id number] [address] [place] [id number] 14 Jul, 2018 Arthritis M19.90 [place] [address] [place] [id number] [address] [place] [id number] 13 Jul, 2018 Encounter for Medicare annua l wellness exam Z00.00 ; Chronic kidney disease, stage 4 (severe) N18.4 ; Body mass index (BMI) of 40.0-44.9 in adult Z68.41 ; Hyperparathyroidism E21.3 and BMI 40.0-44.9, adult Z68.41 [place] [address] [place] [id number] [address] [place] [id number] 13 Jul, 2018 Encounter for Medicare annua l wellness exam Z00.00 ; Chronic kidney disease, stage 4 (severe) N18.4 ; Hyperparathyroidism E21.3 ; Body mass index (BMI) of 40.0-44.9 in adult Z68.41 and Encounter for immunization Z23 [facility] [address] [facility] [id number] [address] [place] [id number] 11 Jul, 2018 Tail bone pain M53.3 [place] [address] [facility] [id number] [address] [place] [id number] Jun, Exercise counseling Z71.82 [facility] [address] [id number] [address] [place] [id number] Jun, Labyrinthitis of left ear H8 3.02 [facility] [address] [id number] [address] [place] [id number] Jun, Tail bone pain M53.3 ; Irrit able bowel syndrome with both constipation and diarrhea K58.2 and Dysfunction of left eustachian tube H69.82 [facility] [address] [id number] [address] [place] [id number] Jun, Exercise counseling Z71.82 [facility] [address] [id number] [address] [place] [id number] Jun, Arthritis M19.90 [facility] [address] [id number] [address] [place] [id number] Jun, Irritable bowel syndrome wit h both constipation and diarrhea K58.2 ; Tail bone pain M53.3 and Dysfunction of left eustachian tube H69.82 [facility] [address] [id number] [address] [place] [id number] Jun, Exercise counseling Z71.82 [facility] [address] [id number] [address] [place] [id number] Jun, Exercise counseling Z71.82 [facility] [address] [id number] [address] [place] [id number] Jun, Labyrinthitis of left ear H8 3.02 [facility] [address] [id number] [address] [place] [id number] May, Exercise counseling Z71.82 [facility] [address] [id number] [address] [place] [id number] May, Arthritis M19.90 [facility] [address] [id number] [address] [place] [id number] May, Exercise counseling Z71.82 [facility] [address] [id number] [address] [place] [id number] May, Exercise counseling Z71.82 [facility] [address] [id number] [address] [place] [id number] May, Labyrinthitis of left ear H8 3.02 [facility] [address] [id number] [address] [place] [id number] May, Exercise counseling Z71.82 [facility] [address] [id number] [address] [place] [id number] Apr, Arthritis M19.90 [facility] [address] [id number] [address] [place] [id number] Apr, Exercise counseling Z71.82 [facility] [address] [id number] [address] [place] [id number] Apr, Exercise counseling Z71.82 [facility] [address] [id number] [address] [place] [id number] 08 Apr, 2018 Primary osteoarthritis of le ft knee M17.12 [facility] [address] [id number] [address] [place] [id number] 08 Apr, 2018 Labyrinthitis of left ear H8 3.02 [facility] [address] [id number] [address] [place] [id number] 30 Mar, 2018 Arthritis M19.90 [facility] [address] [id number] [address] [place] [phone] Mar, [facility] [address] [id number] [address] [place] [id number] Mar, Chronic kidney disease, stag e 4 (severe) N18.4 [facility] [address] [id number] [address] [place] [id number] 15 Mar, 2018 Chronic kidney disease, stag e 4 (severe) N18.4 [facility] [address] [id number] [address] [place] [id number] Mar, Labyrinthitis of left ear H8 3.02 [place] [id number] [place] [id number] [place] [address] Mar, Chronic kidney disease, stag e 4 (severe) N18.4 ; Knee pain, left anterior M25.562 ; Deficiency of other specified B group vitamins E53.8 and Encounter for immunization Z23 [place] [address] [phone] Mar, Arthritis M19.90 [place] [address] [place] [id number] [place] [phone] Feb, Labyrinthitis of left ear H8 3.02 [place] [address] [address] Feb, Arthritis M19.90 [place] [address] [address] Jan, Labyrinthitis of left ear H8 3.02 [place] [address] [address] Jan, Arthritis M19.90 [place] [address] [place] [id number] [place] [address] Dec, Labyrinthitis of left ear H8 3.02 [place] [address] [place] [id number] [address] [place] [id number] Nov, Arthritis M19.90 [place] [address] [place] [id number] [address] [place] [phone] Nov, Labyrinthitis of left ear H8 3.02 [place] [address] [place] [id number] [address] [place] [id number] Nov, BMI 40.0-44.9, adult Z68.41 ; Chronic kidney disease, stage 4 (severe) N18.4 and Acute right-sided thoracic back pain M54.6 [facility] [address] [facility] [id number] [address] [place] [id number] October, Labyrinthitis of left ear H8 3.02 and Arthritis M19.90 [facility] [address] [place] [id number] [address] [place] [id number] Sep, BPV (benign positional verti go), bilateral H81.13 ; Dysfunction of left eustachian tube H69.82 and BMI 40.0-44.9, adult Z68.41 [facility] [address] [place] [id number] [address] [place] [phone] Sep, Labyrinthitis of left ear H8 3.02 and Arthritis M19.90 [facility] [address] [place] [id number] [address] [place] [id number] Sep, [place] [id number] [place] [id number] [place] [phone] Sep, [facility] [address] [place] [id number] [address] [place] [id number] Sep, Chronic kidney disease, stag e 4 (severe) N18.4 [facility] [address] [facility] [id number] [address] [place] [id number] Sep, Chronic kidney disease, stag e 4 (severe) N18.4 [facility] [address] [place] [id number] [address] [place] [id number] Aug, Labyrinthitis of left ear H8 3.02 and Arthritis M19.90 [facility] [address] [place] [id number] [address] [place] [phone] Aug, [facility] [address] [place] [id number] [address] [place] [id number] Jul, [facility] [address] [place] [id number] [address] [place] [phone] Jul, Arthritis M19.90 and Labyrin thitis of left ear H83.02 [place] [address] [facility] [id number] [address] [place] [id number] Jul, [place] [address] [place] [id number] [address] [place] [id number] Jun, [place] [address] [place] [id number] [address] [place] [id number] Jun, Arthritis M19.90 and Labyrin thitis of left ear H83.02 [place] [address] [place] [id number] [place] [address] Jun, Pre-op evaluation Z01.818 ; BMI 40.0-44.9, adult Z68.41 and Encounter for immunization Z23 [place] [address] [place] [id number] [place] [address] May, Arthritis M19.90 and Labyrin thitis of left ear H83.02 [place] [address] [address] Apr, Labyrinthitis of left ear H8 3.02 [place] [address] [address] Apr, Arthritis M19.90 and Labyrin thitis of left ear H83.02 [place] [address] [place] [id number] [address] [place] [id number] Mar, Arthritis M19.90 and Labyrin thitis of left ear H83.02 [place] [address] [place] [id number] [address] [place] [id number] Mar, Chronic kidney disease, stag e 4 (severe) N18.4 [place] [address] [place] [id number] [place] [phone] 06 Feb, 2017 Arthritis M19.90 and Labyrin thitis of left ear H83.02 [place] [address] [place] [id number] [address] [place] [id number] Jan, Labyrinthitis of left ear H8 3.02 and Deficiency of other specified B group vitamins E53.8 [facility] [address] [id number] [address] [place] [id number] Dec, Arthritis M19.90 [facility] [address] [id number] [address] [place] [id number] Dec, BPV (benign positional verti go), bilateral H81.13 [facility] [address] [id number] [address] [place] [id number] Dec, [facility] [address] [id number] [address] [place] [id number] Dec, [facility] [address] [facility] [id number] [address] [place] [id number] Dec, [facility] [address] [facility] [id number] [address] [place] [phone] Nov, Arthritis M19.90 and Deficie ncy of other specified B group vitamins E53.8 [facility] [address] [id number] [address] [place] [id number] Nov, Arthritis M19.90 [facility] [address] [facility] [id number] [address] [place] [id number] Nov, Hyperparathyroidism E21.3 [facility] [address] [facility] [id number] [address] [place] [id number] October, [facility] [address] [facility] [id number] [address] [place] [id number] October, Hyperparathyroidism E21.3 [facility] [address] [id number] [address] [place] [id number] October, [facility] [address] [facility] [id number] [address] [place] [id number] October, Renal insufficiency N28.9 an d Hyperparathyroidism E21.3 [facility] [address] [facility] [id number] [address] [place] [id number] October, [facility] [address] [place] [id number] [address] [place] [id number] October, Renal insufficiency N28.9 an d Hyperparathyroidism E21.3 [facility] [address] [place] [id number] [address] [place] [id number] October, Arthritis M19.90 [facility] [address] [address] Sep, [facility] [address] [address] Sep, Lumbar neuritis M54.16 ; Tho racic abscess J86.9 and Deficiency of other specified B group vitamins E53.8 [facility] [address] [place] [id number] [address] [place] [id number] Sep, [facility] [address] [address] Aug, Arthritis M19.90 [facility] [address] [place] [id number] [address] [place] [address] Aug, Hyperparathyroidism E21.3 [facility] [address] [address] Aug, Hyperparathyroidism E21.3 [facility] [address] [address] Aug, Arthritis M19.90 [facility] [address] [place] [id number] [address] [place] [phone] Jul, Mass of throat R22.1 [facility] [address] [place] [id number] [address] [place] [id number] Jul, [facility] [address] [place] [id number] [address] [place] [id number] Jul, Arthritis M19.90 [facility] [address] [place] [id number] [address] [place] [id number] Jun, Arthritis M19.90 [facility] [address] [facility] [id number] [address] [place] [id number] Jun, [facility] [address] [facility] [id number] [address] [place] [id number] Jun, Renal insufficiency N28.9 an d 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 [facility] [address] [facility] [id number] [address] [place] [id number] 05 Jun, 2016 Medicare welcome exam Z00.00 ; Encounter for immunization Z23 ; Arthritis M19.90 ; Medicare annual wellness visit, initial Z00.00 ; Medicare annual wellness visit, subsequent Z00.00 and Deficiency of other specified B group vitamins E53.8 [facility] [address] [facility] [id number] [address] [place] [id number] May, Renal insufficiency N28.9 an d 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 [facility] [address] [facility] [id number] [address] [place] [id number] May, Renal insufficiency N28.9 [facility] [address] [facility] [id number] [address] [place] [id number] May, Renal insufficiency N28.9 [facility] [address] [facility] [id number] [address] [place] [id number] May, [facility] [address] [facility] [id number] [address] [place] [id number] Apr, [facility] [address] [facility] [id number] [address] [place] [id number] 16 Apr, 2016 [facility] [address] [facility] [id number] [address] [place] [id number] 14 Apr, 2016 Mass of throat R22.1 [facility] [address] [facility] [id number] [address] [place] [id number] 10 Apr, 2016 [facility] [address] [facility] [id number] [address] [place] [id number] 10 Apr, 2016 Mass of throat R22.1 [facility] [address] [id number] [address] [place] [id number] 04 Apr, 2016 Mass of throat R22.1 [facility] [address] [id number] [address] [place] [id number] Mar, [facility] [address] [facility] [id number] [address] [place] [id number] Mar, [facility] [address] [id number] [address] [place] [id number] Mar, [facility] [address] [facility] [id number] [address] [place] [id number] Mar, Parathyroid abnormality E21. 5 and Encounter for immunization Z23 [facility] [address] [facility] [id number] [address] [place] [phone] Mar, [facility] [address] [facility] [id number] [address] [place] [phone] Mar, [facility] [address] [facility] [id number] [address] [place] [id number] 21 Feb, 2016 Renal insufficiency N28.9 an d Hyperparathyroidism E21.3 [facility] [address] [id number] [address] [place] [id number] 19 Feb, 2016 [facility] [address] [facility] [id number] [address] [place] [id number] 15 Feb, 2016 Renal insufficiency N28.9 an d Hyperparathyroidism E21.3 [facility] [address] [id number] [address] [place] [id number] 14 Feb, 2016 [facility] [address] [id number] [address] [place] [id number] 12 Feb, 2016 [facility] [address] [facility] [id number] [address] [place] [id number] 09 Feb, 2016 [facility] [address] [facility] [id number] [address] [place] [id number] Jan, [facility] [address] [facility] [id number] [address] [place] [id number] Jan, Arthritis M19.90 ; Lumbago w ith sciatica, right side M54.41 and Other chronic pain G89.29 [facility] [address] [facility] [id number] [address] [place] [id number] Jan, [place] [address] [place] [id number] [address] [place] [id number] Dec, Arthritis M19.90 ; Lumbago w ith sciatica, right side M54.41 and Other chronic pain G89.29 [place] [address] [facility] [id number] [address] [place] [id number] 16 Nov, 2015 Deficiency of other specifie d B group vitamins E53.8 ; Primary insomnia F51.01 ; Mood disorder F39 and Lumbago with sciatica, right side M54.41 [place] [address] [place] [id number] [address] [place] [id number] Nov, Hyperparathyroidism E21.3 [place] [address] [place] [id number] [address] [place] [address] Nov, Unspecified kidney failure N 19 and Hyperparathyroidism E21.3 [place] [address] [facility] [id number] [address] [place] [id number] October, Hyperparathyroidism E21.3 [place] [address] [place] [id number] [address] [place] [id number] October, [place] [address] [place] [id number] [address] [place] [id number] October, Hyperparathyroidism E21.3 [place] [address] [place] [id number] [address] [place] [id number] October, Hyperparathyroidism E21.3 [place] [address] [place] [id number] [address] [place] [id number] Sep, Hyperparathyroidism E21.3 ; Hypercholesterolemia E78.0 and Arthritis M19.90 [place] [address] [place] [id number] [address] [place] [phone] Aug, [facility] [address] [place] [id number] [address] [place] [id number] Aug, Deficiency of other specifie d B group vitamins E53.8 [facility] [address] [facility] [id number] [address] [place] [id number] Aug, [facility] [address] [id number] Jul, Urinary frequency R35.0 [facility] [address] [facility] [id number] [place] [id number] Jul, Urinary frequency R35.0 [facility] [address] [place] [id number] [place] [phone] Jul, [facility] [address] [id number] Jul, [facility] [address] [place] [id number] [place] [phone] Jun, Pain in left knee M25.562 [facility] [address] [place] [id number] [place] [phone] Jun, [facility] [address] [place] [id number] [place] [phone] May, Swelling of left knee joint M25.462 [facility] [address] [place] [id number] [address] [place] [phone] May, [facility] [address] [place] [id number] [address] [place] [phone] May, [facility] [address] [place] [id number] [place] [phone] May, [facility] [address] [place] [id number] [address] [place] [phone] Apr, Renal insufficiency N28.9 an d Chronic kidney disease, stage 4 (severe) N18.4 [facility] [address] [facility] [id number] [address] [place] [id number] Apr, Unspecified kidney failure N 19 [facility] [address] [facility] [id number] [address] [place] [id number] Apr, Unspecified kidney failure N 19 [facility] [address] [facility] [id number] [address] [place] [id number] Apr, [facility] [address] [facility] [id number] [address] [place] [id number] Apr, Hyperparathyroidism, unspeci fied 252.00 [facility] [address] [facility] [id number] [address] [place] [id number] Apr, [facility] [address] [facility] [id number] [address] [place] [id number] Mar, [facility] [address] [facility] [id number] [address] [place] [phone] Mar, [facility] [address] [facility] [id number] [address] [place] [id number] Mar, Hyperparathyroidism, unspeci fied 252.00 [facility] [address] [facility] [id number] [address] [place] [phone] Feb, [facility] [address] [facility] [id number] [address] [place] [phone] Feb, Otalgia 388.70 [facility] [address] [id number] [address] [place] [id number] Feb, [facility] [address] [id number] [address] [place] [id number] Feb, [facility] [address] [id number] [address] [place] [id number] Jan, [facility] [address] [id number] [address] [place] [id number] Jan, Hyperparathyroidism, unspeci fied 252.00 [facility] [address] [id number] [address] [place] [id number] Jan, [facility] [address] [id number] [address] [place] [id number] Jan, Other B-complex deficiencies 266.2 and Hyperparathyroidism, unspecified 252.00 [facility] [address] [id number] [address] [place] [id number] Jan, [facility] [address] [id number] [address] [place] [id number] Jan, [facility] [address] [id number] [address] [place] [id number] Jan, [facility] [address] [id number] [address] [place] [id number] Dec, [facility] [address] [id number] [address] [place] [id number] Dec, [facility] [address] [id number] [address] [place] [id number] Dec, [facility] [address] [id number] [address] [place] [id number] Nov, Routine check-up V70.0 and P re-op exam V72.84 [facility] [address] [id number] [address] [place] [id number] Nov, [facility] [address] [id number] [address] [place] [id number] Nov, [facility] [address] [id number] [address] [place] [phone] October, [facility] [address] [id number] [address] [place] [id number] October, Other B-complex deficiencies 266.2 [facility] [address] [id number] [address] [place] [id number] October, [facility] [address] [id number] [address] [place] [address], [place] [address] 14 Sep, 2014 [facility] [address] [id number] [address] [place] [address], [place] [address] 13 Sep, 2014 [facility] [address] [id number] [address] [place] [address], [place] [address] 20 Aug, 2014 [facility] [address] [id number] [address] [place] [address], [place] [address] 20 Aug, 2014 [facility] [address] [id number] [address] [place] [address], [place] [address] 17 Aug, 2014 [facility] [address] [id number] [address] [place] [address], [place] [address] 17 Aug, 2014 [facility] [address] [id number] [address] [place] [address], [place] [address] 11 Aug, 2014 [facility] [address] [id number] [address] [place] [address], [place] [address] 11 Aug, 2014 [facility] [address] [id number] [address] [place] [address], [place] [address] 18 Jul, 2014 [facility] [address] [id number] [address] [place] [address], [place] [address] 18 Jul, 2014 [facility] [address] [id number] [address] [place] [address], [place] [address] 17 Jul, 2014 [facility] [address] [id number] [address] [place] [address], [place] [address] 17 Jul, 2014 [facility] [address] [id number] [address] [place] [address], [place] [address] 12 Jul, 2014 [facility] [address] [id number] [address] [place] [address], [place] [address] 12 Jul, 2014 [facility] [address] [id number] [address] [place] [address], [place] [address] 10 Jul, 2014 [facility] [address] [id number] [address] [place] [address], [place] [address] Jul, 2014 [facility] [address] [id number] [address] [place] [address], [place] [address] Jul, [facility] [address] [id number] [address] [place] [address], [place] [address] Jul, 2014 [facility] [address] [id number] [address] [place] [address], [place] [address] Jul, 2014 [facility] [address] [id number] [address] [place] [address], [place] [address] Jul, 2014 [facility] [address] [id number] [address] [place] [address], [place] [address] Jul, [facility] [address] [id number] [address] [place] [address], [place] [address] Jul, [facility] [address] [id number] [address] [place] [address], [place] [address] Jun, [facility] [address] [id number] [address] [place] [address], [place] [address] Jun, [facility] [address] [id number] [address] [place] [address], [place] [address] Jun, [facility] [address] [id number] [address] [place] [address], [place] [address] Jun, [facility] [address] [id number] [address] [place] [address], [place] [address] Jun, [facility] [address] [id number] [address] [place] [address], [place] [address] Jun, [facility] [address] [id number] [address] [place] [address], [place] [address] Jun, [facility] [address] [id number] [address] [place] [address], [place] [address] Jun, [facility] [address] [id number] [address] [place] [address], [place] [address] Jun, [facility] [address] [id number] [address] [place] [address], [place] [address] Jun, [facility] [address] [id number] [address] [place] [address], [place] [address] Jun, [facility] [address] [id number] [address] [place] [address], [place] [address] Jun, [facility] [address] [id number] [address] [place] [address], [place] [address] Jun, [facility] [address] [id number] [address] [place] [address], [place] [address] Jun, [facility] [address] [id number] [address] [place] [address], [place] [address] May, [facility] [address] [id number] [address] [place] [address], [place] [address] May, [facility] [address] [id number] [address] [place] [address], [place] [address] May, [facility] [address] [id number] [address] [place] [address], [place] [address] May, [facility] [address] [id number] [address] [place] [address], [place] [address] Apr, [facility] [address] [id number] [address] [place] [address], [place] [address] Apr, [facility] [address] [id number] [address] [place] [address], [place] [address] Apr, [facility] [address] [id number] [address] [place] [address], [place] [address] Apr, [facility] [address] [id number] [address] [place] [address], [place] [address] Apr, [facility] [address] [id number] [address] [place] [address], [place] [address] Apr, [facility] [address] [id number] [address] [place] [address], [place] [address] 24 Mar, 2014 [facility] [address] [id number] [address] [place] [address], [place] [address] 24 Mar, 2014 [facility] [address] [id number] [address] [place] [address], [place] [address] Mar, [facility] [address] [id number] [address] [place] [address], [place] [address] Mar, [facility] [address] [id number] [address] [place] [address], [place] [address] 15 Mar, 2014 [facility] [address] [id number] [address] [place] [address], [place] [address] 15 Mar, 2014 [facility] [address] [id number] [address] [place] [address], [place] [address] Mar, [facility] [address] [id number] [address] [place] [address], [place] [address] Mar, [facility] [address] [id number] [address] [place] [address], [place] [address] Mar, [facility] [address] [id number] [address] [place] [address], [place] [address] 07 Mar, 2014 [facility] [address] [id number] [address] [place] [id number] 07 Mar, 2014 [facility] [address] [id number] [address] [place] [id number] 07 Mar, 2014 [facility] [address] [id number] [address] [place] [id number] 06 Mar, 2014 [facility] [address] [id number] [address] [place] [address], [place] [address] Feb, [facility] [address] [id number] [address] [place] [address], [place] [address] Feb, 2013 [facility] [address] [id number] [address] [place] [id number] 23 Feb, 2013 [facility] [address] [id number] [address] [place] [id number] 23 Feb, 2014 [facility] [address] [id number] [facility] [place] [address] 19 Feb, 2014 [facility] [address] [id number] [address] [place] [address], [place] [address] 19 Feb, 2014 [facility] [address] [id number] [address] [place] [address], [place] [address] 13 Feb, 2014 [facility] [address] [id number] [address] [place] [address], [place] [address] 13 Feb, 2014 [facility] [address] [id number] [address] [place] [address], [place] [address] 12 Feb, 2014 [facility] [address] [id number] [address] [place] [address], [place] [address] Feb, [facility] [address] [id number] [address] [place] [address], [place] [address] Jan, [facility] [address] [id number] [address] [place] [address], [place] [address] Jan, [facility] [address] [id number] [address] [place] [address], [place] [address] Dec, [facility] [address] [id number] [address] [place] [address], [place] [address] Dec, [facility] [address] [id number] [address] [place] [address], [place] [address] Dec, [facility] [address] [id number] [address] [place] [address], [place] [address] Dec, [facility] [address] [id number] [address] [place] [address], [place] [address] Dec, [facility] [address] [id number] [address] [place] [address], [place] [address] Dec, [facility] [address] [id number] [address] [place] [address], [place] [address] 16 Nov, 2013 [facility] [address] [id number] [facility] [place] [address] Nov, [facility] [address] [id number] [facility] [place] [address] Nov, [facility] [address] [id number] [facility] [place] [address] Nov, [facility] [address] [id number] [facility] [place] [address] October, [facility] [address] [id number] [facility] [place] [address] October, [facility] [address] [id number] [address] [place] [address], [place] [address] October, [facility] [address] [id number] [address] [place] [address], [place] [address] October, [facility] [address] [id number] [address] [place] [address], [place] [address] October, [facility] [address] [id number] [address] [place] [address], [place] [address] October, [facility] [address] [id number] [address] [place] [address], [place] [address] October, [facility] [address] [id number] [address] [place] [address], [place] [address] October, [facility] [address] [id number] [address] [place] [address], [place] [address] October, [facility] [address] [id number] [address] [place] [address], [place] [address] October, [facility] [address] [id number] [address] [place] [address], [place] [address] October, [facility] [address] [id number] [address] [place] [address], [place] [address] October, [facility] [address] [id number] [address] [place] [address], [place] [address] October, [facility] [address] [id number] [facility] [place] [address] October, [facility] [address] [id number] [facility] [place] [address] October, [facility] [address] [id number] [address] [place] [address], [place] [address] October, [facility] [address] [id number] [address] [place] [address], [place] [address] Sep, [facility] [address] [id number] [address] [place] [address], [place] [address] Sep, [facility] [address] [id number] [address] [place] [address], [place] [address] Sep, [facility] [address] [id number] [address] [place] [address], [place] [address] Sep, [facility] [address] [id number] [address] [place] [address], [place] [address] Sep, [facility] [address] [id number] [address] [place] [address], [place] [address] Sep, [facility] [address] [id number] [address] [place] [address], [place] [address] Aug, [facility] [address] [id number] [address] [place] [address], [place] [address] Aug, [facility] [address] [id number] [address] [place] [address], [place] [address] Aug, [facility] [address] [id number] [address] [place] [address], [place] [address] Aug, [facility] [address] [id number] [address] [place] [address], [place] [address] Aug, [facility] [address] [id number] [address] [place] [address], [place] [address] Aug, [facility] [address] [id number] [address] [place] [address], [place] [address] 11 Jul, 2013 [facility] [address] [id number] [address] [place] [address], [place] [address] 11 Jul, 2013 [facility] [address] [id number] [address] [place] [address], [place] [address] 03 Jul, 2013 [facility] [address] [id number] [address] [place] [address], [place] [address] Jul, [facility] [address] [id number] [address] [place] [address], [place] [address] Jun, [facility] [address] [id number] [address] [place] [address], [place] [address] Jun, [facility] [address] [id number] [address] [place] [address], [place] [address] May, [facility] [address] [id number] [address] [place] [address], [place] [address] May, [facility] [address] [id number] [address] [place] [address], [place] [address] May, [facility] [address] [id number] [address] [place] [address], [place] [address] May, [facility] [address] [id number] [address] [place] [address], [place] [address] May, [facility] [address] [id number] [address] [place] [address], [place] [address] Apr, [facility] [address] [id number] [address] [place] [address], [place] [address] Apr, [facility] [address] [id number] [address] [place] [address], [place] [address] Apr, [facility] [address] [id number] [address] [place] [address], [place] [address] Apr, [facility] [address] [id number] [address] [place] [address], [place] [address] Apr, [facility] [address] [id number] [address] [place] [address], [place] [address] 04 Apr, 2013 [facility] [address] [id number] [address] [place] [address], [place] [address] 15 Mar, 2013 [facility] [address] [id number] [address] [place] [address], [place] [address] 15 Mar, 2013 [facility] [address] [id number] [address] [place] [address], [place] [address] 14 Mar, 2013 [facility] [address] [id number] [address] [place] [address], [place] [address] 14 Mar, 2013 [facility] [address] [id number] [address] [place] [address], [place] [address] Mar, [facility] [address] [id number] [address] [place] [address], [place] [address] Mar, [facility] [address] [id number] [address] [place] [address], [place] [address] 23 Feb, 2013 [facility] [address] [id number] [address] [place] [address], [place] [address] 19 Feb, 2013 [facility] [address] [id number] [address] [place] [id number] 04 Feb, 2013 [facility] [address] [id number] [address] [place] [address] 30 Jan, 2013 [facility] [address] [id number] [address] [place] [address] Jan, [facility] [address] [id number] [address] [place] [address], [place] [address] Jan, [facility] [address] [id number] [address] [place] [address], [place] [address] 16 Jan, 2013 [facility] [address] [id number] [address] [place] [id number] Jan, [facility] [address] [id number] [address] [place] [id number] Jan, [facility] [address] [id number] [address] [place] [address], [place] [address] Dec, [facility] [address] [id number] [address] [place] [address], [place] [address] Dec, [facility] [address] [id number] [address] [place] [address], [place] [address] Dec, [facility] [address] [id number] [address] [place] [address], [place] [address] Dec, [facility] [address] [id number] [address] [place] [address], [place] [address] Dec, [facility] [address] [id number] [address] [place] [address], [place] [address] Dec, [facility] [address] [id number] [address] [place] [address], [place] [address] Nov, [facility] [address] [id number] [address] [place] [address], [place] [address] Nov, [facility] [address] [id number] [address] [place] [address], [place] [address] Nov, [facility] [address] [id number] [address] [place] [address], [place] [address] Nov, [facility] [address] [id number] [address] [place] [address], [place] [address] Nov, [facility] [address] [id number] [address] [place] [address], [place] [address] Nov, [facility] [address] [id number] [address] [place] [address], [place] [address] October, [facility] [address] [id number] [address] [place] [address], [place] [address] October, [facility] [address] [id number] [address] [place] [address], [place] [address] October, [facility] [address] [id number] [address] [place] [address], [place] [address] October, [facility] [address] [id number] [address] [place] [address], [place] [address] October, [facility] [address] [id number] [address] [place] [address], [place] [address] Sep, [facility] [address] [id number] [address] [place] [address], [place] [address] Sep, [facility] [address] [id number] [address] [place] [address], [place] [address] Sep, [facility] [address] [id number] [address] [place] [address], [place] [address] Sep, [facility] [address] [id number] [address] [place] [address], [place] [address] Sep, [facility] [address] [id number] [address] [place] [address], [place] [address] Aug, [facility] [address] [id number] [address] [place] [address], [place] [address] Aug, [facility] [address] [id number] [address] [place] [address], [place] [address] Aug, [facility] [address] [id number] [address] [place] [address], [place] [address] Jul, [facility] [address] [id number] [address] [place] [address], [place] [address] Jul, [facility] [address] [id number] [address] [place] [address], [place] [address] Jul, [facility] [address] [id number] [address] [place] [address], [place] [address] 08 Jul, 2012 [facility] [address] [id number] [address] [place] [address], [place] [address] 06 Jul, 2012 [facility] [address] [id number] [address] [place] [id number] Jul, [facility] [address] [id number] [address] [place] [address], [place] [address] Jun, [facility] [address] [id number] [address] [place] [id number] Apr, [facility] [address] [id number] [address] [place] [address], [place] [address] Apr, [facility] [address] [id number] [address] [place] [id number] Apr, [facility] [address] [id number] [address] [place] [address], [place] [address] Apr, [facility] [address] [id number] [address] [place] [address], [place] [address] Mar, [facility] [address] [id number] [address] [place] [address], [place] [address] Mar, [facility] [address] [id number] [address] [place] [address], [place] [address] Mar, [facility] [address] [id number] [address] [place] [id number] Mar, [facility] [address] [id number] [address] [place] [id number] Mar, [facility] [address] [id number] [address] [place] [id number] Feb, [facility] [address] [id number] [address] [place] [id number] Jan, [facility] [address] [id number] [address] [place] [id number] Jan, [facility] [address] [id number] [address] [place] [id number] Jan, [facility] [address] [id number] [address] [place] [address], [place] [address] Dec, [facility] [address] [id number] [address] [place] [id number] 25 Nov, 2011 [facility] [address] [id number] [address] [place] [id number] Nov, [facility] [address] [id number] [address] [place] [id number] Nov, [facility] [address] [id number] [address] [place] [phone] Nov, [facility] [address] [id number] [address] [place] [id number] Nov, [facility] [address] [id number] [address] [place] [id number] October, [facility] [address] [id number] [address] [place] [phone] October, [facility] [address] [id number] [address] [place] [id number] October, [facility] [address] [id number] [address] [place] [id number] October, [facility] [address] [id number] [address] [place] [phone] October, IMMUNIZATIONS No Known Immunizations SOCIAL HISTORY Never Assessed REASON FOR VISIT EMR-[facility] [place] PLAN OF CARE VITAL SIGNS MEDICATIONS Unknown Medications RESULTS No Results PROCEDURES No Known procedures INSTRUCTIONS MEDICATIONS ADMINISTERED No Known Medications MEDICAL (GENERAL) HISTORY Type Description Date Medical History hypertension Medical History acid reflux Medical History osteoporosis Medical History Arthritis Medical History fibromyalgia Surgical History cholecystectomy 1970's Surgical History gastric bypass 1970's Surgical History orthopedic surgery-left and right foot Surgical History arthroscopic knee surgery-left Surgical History Left knee meniscus repair 2009 Surgical History half of thyroid removed Jun 2016 Hospitalization History Hospitalization for surgery only
--- OUTSIDE RECORDS SUMMARY | 2020-01-25 07:57 | XMS REPORT ---
Author Author Velma ACOSTA Organization [facility] Address [address] [place] [address] Care Team Providers Care Side Splitter Name Role Phone SRIKANTH ACOSTA Unavailable PROBLEMS Type Condition ICD9-CM Code FPE37-YD Code Onset Dates Condition S tatus SNOMED Code Problem Hyperparathyroidism E21.3 Active 41014640 Problem Mood disorder F39 Active 628528 05 Problem Arthritis M19.90 Active 4665602 Problem Primary insomnia F51.01 Active 397 2004 Problem Myalgia M79.1 Active 01217215 Problem Hypercholesteremia E78.0 Active 1 6076566 Problem Primary osteoarthritis of left knee M17.12 Active [id number] Problem Chronic kidney disease, stage 4 (severe) N18.4 Active 112197912 Problem 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 Active 30148009 Problem Corns L84 Active 580233850 Problem BPV (benign positional vertigo), bilateral H81.13 Active 277087124 Problem 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 [address] [place] [id number] [address] [place] [phone] May, [facility] [address] [facility] [id number] [address] [place] [phone] May, Exercise counseling Z71.82 [place] [address] [place] [id number] [address] [place] [phone] May, Exercise counseling Z71.82 [place] [address] [facility] [id number] [address] [place] [phone] May, Labyrinthitis of left ear H8 3.02 [place] [id number] [id number] [address] [place] [phone] May, Exercise counseling Z71.82 [facility] [address] [facility] [id number] [address] [place] [phone] Apr, Arthritis M19.90 [facility] [address] [facility] [id number] [address] [place] [phone] Apr, Exercise counseling Z71.82 [facility] [address] [facility] [id number] [address] [place] [phone] Apr, Exercise counseling Z71.82 [place] [address] [facility] [id number] [address] [place] [phone] Apr, Primary osteoarthritis of le ft knee M17.12 [place] [address] [place] [id number] [address] [place] [phone] Apr, Labyrinthitis of left ear H8 3.02 [place] [address] [facility] [id number] [address] [place] [phone] Mar, Arthritis M19.90 [place] [address] [facility] [id number] [address] [place] [phone] Mar, [place] [address] [facility] [id number] [address] [place] [phone] Mar, Chronic kidney disease, stag e 4 (severe) N18.4 [place] [address] [facility] [id number] [address] [place] [phone] Mar, Chronic kidney disease, stag e 4 (severe) N18.4 [facility] [address] [facility] [id number] [address] [place] [phone] Mar, Labyrinthitis of left ear H8 3.02 [facility] [address] [facility] [id number] [address] [place] [phone] 05 Mar, 2018 Chronic kidney disease, stag e 4 (severe) N18.4 ; Knee pain, left anterior M25.562 ; Deficiency of other specified B group vitamins E53.8 and Encounter for immunization Z23 [place] [address] [address] Mar, Arthritis M19.90 [place] [address] [place] [id number] [address] [place] [phone] Feb, Labyrinthitis of left ear H8 3.02 [place] [address] [address] Feb, Arthritis M19.90 [place] [address] [address] Jan, Labyrinthitis of left ear H8 3.02 [place] [address] [place] [id number] [place] [phone] Jan, Arthritis M19.90 [place] [address] [address] Dec, Labyrinthitis of left ear H8 3.02 [place] [address] [place] [id number] [address] [place] [phone] Nov, Arthritis M19.90 [place] [address] [place] [id number] [place] [phone] Nov, Labyrinthitis of left ear H8 3.02 [place] [address] [address] Nov, BMI 40.0-44.9, adult Z68.41 ; Chronic kidney disease, stage 4 (severe) N18.4 and Acute right-sided thoracic back pain M54.6 [place] [address] [place] [id number] [place] [phone] October, Labyrinthitis of left ear H8 3.02 and Arthritis M19.90 [place] [address] [place] [id number] [address] [place] [phone] Sep, BPV (benign positional verti go), bilateral H81.13 ; Dysfunction of left eustachian tube H69.82 and BMI 40.0-44.9, adult Z68.41 [facility] [address] [facility] [id number] [address] [place] [phone] Sep, Labyrinthitis of left ear H8 3.[address] [facility] [address] [facility] [id number] [address] [place] [phone] Sep, [facility] [address] [facility] [id number] [address] [place] [phone] Sep, [facility] [address] [place] [id number] [address] [place] [id number] Sep, Chronic kidney disease, stag e 4 (severe) N18.4 [facility] [address] [place] [id number] [address] [place] [phone] Sep, Chronic kidney disease, stag e 4 (severe) N18.4 [facility] [address] [id number] [address] [place] [phone] Aug, Labyrinthitis of left ear H8 3.[address] [facility] [address] [place] [id number] [address] [place] [phone] Aug, [facility] [address] [place] [id number] [address] [place] [phone] Jul, [facility] [address] [facility] [id number] [address] [place] [phone] Jul, Arthritis M19.90 and Labyrin thitis of left ear H83.02 [facility] [address] [facility] [id number] [address] [place] [phone] Jul, [facility] [address] [facility] [id number] [address] [place] [phone] Jun, [facility] [address] [facility] [id number] [address] [place] [address] Jun, Arthritis M19.90 and Labyrin thitis of left ear H83.02 [place] [address] [address] Jun, Pre-op evaluation Z01.818 ; BMI 40.0-44.9, adult Z68.41 and Encounter for immunization Z23 [place] [address] [address] May, Arthritis M19.90 and Labyrin thitis of left ear H83.02 [place] [address] [address] Apr, Labyrinthitis of left ear H8 3.02 [place] [address] [place] [id number] [place] [address] Apr, Arthritis M19.90 and Labyrin thitis of left ear H83.02 [place] [address] [address] Mar, Arthritis M19.90 and Labyrin thitis of left ear H83.02 [place] [address] [address] Mar, Chronic kidney disease, stag e 4 (severe) N18.4 [place] [address] [place] [id number] [place] [phone] Feb, Arthritis M19.90 and Labyrin thitis of left ear H83.02 [place] [address] [address] [place] [id number] [address] [place] [phone] Jan, Labyrinthitis of left ear H8 3.02 and Deficiency of other specified B group vitamins E53.8 [place] [address] [place] [id number] [address] [place] [address] Dec, Arthritis M19.90 [place] [address] [place] [id number] [address] [place] [phone] Dec, BPV (benign positional verti go), bilateral H81.13 [facility] [address] [facility] [id number] [address] [place] [phone] Dec, [facility] [address] [facility] [id number] [address] [place] [phone] Dec, [facility] [address] [facility] [id number] [address] [place] [phone] Dec, [facility] [address] [facility] [id number] [address] [place] [phone] Nov, Arthritis M19.90 and Deficie ncy of other specified B group vitamins E53.8 [facility] [address] [facility] [id number] [address] [place] [phone] Nov, Arthritis M19.90 [facility] [address] [facility] [id number] [address] [place] [phone] Nov, Hyperparathyroidism E21.3 [facility] [address] [facility] [id number] [address] [place] [phone] October, [facility] [address] [facility] [id number] [address] [place] [phone] October, Hyperparathyroidism E21.3 [facility] [address] [facility] [id number] [address] [place] [phone] October, [facility] [address] [facility] [id number] [address] [place] [phone] October, Renal insufficiency N28.9 an d Hyperparathyroidism E21.3 [facility] [address] [facility] [id number] [address] [place] [phone] October, [facility] [address] [facility] [id number] [address] [place] [phone] October, Renal insufficiency N28.9 an d Hyperparathyroidism E21.3 [facility] [address] [facility] [id number] [address] [place] [address] October, Arthritis M19.90 [facility] [address] [facility] [id number] [address] [place] [phone] Sep, [facility] [address] [address] Sep, Lumbar neuritis M54.16 ; Tho racic abscess J86.9 and Deficiency of other specified B group vitamins E53.8 [facility] [address] [facility] [id number] [address] [place] [phone] Sep, [facility] [address] [facility] [id number] [address] [place] [phone] Aug, Arthritis M19.90 [facility] [address] [address] Aug, Hyperparathyroidism E21.3 [facility] [address] [address] Aug, Hyperparathyroidism E21.3 [facility] [address] [address] Aug, Arthritis M19.90 [facility] [address] [address] Jul, Mass of throat R22.1 [facility] [address] [place] [id number] [place] [phone] Jul, [facility] [address] [place] [id number] [address] [place] [phone] Jul, Arthritis M19.90 [facility] [address] [place] [id number] [address] [place] [phone] Jun, Arthritis M19.90 [facility] [address] [place] [id number] [address] [place] [phone] Jun, 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 [address] [facility] [id number] [address] [place] [phone] 05 Jun, 2016 Medicare welcome exam Z00.00 ; Encounter for immunization Z23 ; Arthritis M19.90 ; Medicare annual wellness visit, initial Z00.00 ; Medicare annual wellness visit, subsequent Z00.00 and Deficiency of other specified B group vitamins E53.8 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 [address] [facility] [id number] [address] [place] [phone] 19 May, [address] [facility] [address] [facility] [id number] [address] [place] [phone] 16 May, [address] [facility] [address] [facility] [id number] [address] [place] [phone] 14 May, 2016 [facility] [address] [facility] [id number] [address] [place] [phone] Apr, [facility] [address] [facility] [id number] [address] [place] [phone] Apr, [facility] [address] [facility] [id number] [address] [place] [phone] 14 Apr, 2016 Mass of throat R22.1 [facility] [address] [facility] [id number] [address] [place] [phone] [address] Apr, [address] [facility] [address] [facility] [id number] [address] [place] [phone] 10 Apr, 2016 Mass of throat R22.1 [facility] [address] [facility] [id number] [address] [place] [phone] 04 Apr, 2016 Mass of throat R22.1 [facility] [address] [facility] [id number] [address] [place] [phone] 31 Mar, 2016 [facility] [address] [facility] [id number] [address] [place] [phone] Mar, [facility] [address] [id number] [place] [phone] Mar, [facility] [address] [facility] [id number] [address] [place] [phone] Mar, Parathyroid abnormality E21. 5 and Encounter for immunization Z23 [facility] [address] [facility] [id number] [address] [place] [phone] Mar, [facility] [address] [id number] [address] [place] [phone] Mar, [facility] [address] [facility] [id number] [address] [place] [phone] 21 Feb, 2016 Renal insufficiency N28.9 an d Hyperparathyroidism E21.3 [facility] [address] [facility] [id number] [address] [place] [phone] 19 Feb, 2016 [facility] [address] [facility] [id number] [address] [place] [phone] 15 Feb, 2016 Renal insufficiency N28.9 an d Hyperparathyroidism E21.3 [facility] [address] [facility] [id number] [address] [place] [phone] [address] Feb, 2016 [facility] [address] [facility] [id number] [address] [place] [phone] [address] Feb, 2016 [facility] [address] [facility] [id number] [address] [place] [phone] Feb, [facility] [address] [facility] [id number] [address] [place] [phone] Jan, [facility] [address] [facility] [id number] [address] [place] [address] Jan, Arthritis M19.90 ; Lumbago w ith sciatica, right side M54.41 and Other chronic pain G89.29 [facility] [address] [facility] [id number] [address] [place] [phone] Jan, [facility] [address] [facility] [id number] [address] [place] [phone] Dec, Arthritis M19.90 ; Lumbago w ith sciatica, right side M54.41 and Other chronic pain G89.29 [facility] [address] [facility] [id number] [address] [place] [phone] 16 Nov, 2015 Deficiency of other specifie d B group vitamins E53.8 ; Primary insomnia F51.01 ; Mood disorder F39 and Lumbago with sciatica, right side M54.41 [place] [address] [facility] [id number] [address] [place] [phone] 13 Nov, 2015 Hyperparathyroidism E21.3 [place] [address] [facility] [id number] [address] [place] [phone] Nov, Unspecified kidney failure N 19 and Hyperparathyroidism E21.3 [place] [address] [facility] [id number] [address] [place] [phone] October, Hyperparathyroidism E21.3 [place] [address] [facility] [id number] [address] [place] [phone] October, [place] [address] [place] [id number] [address] [place] [phone] October, Hyperparathyroidism E21.3 [facility] [address] [facility] [id number] [address] [place] [phone] October, Hyperparathyroidism E21.3 [place] [address] [facility] [id number] [address] [place] [phone] Sep, Hyperparathyroidism E21.3 ; Hypercholesterolemia E78.0 and Arthritis M19.90 [place] [address] [facility] [id number] [address] [place] [phone] Aug, [facility] [address] [facility] [id number] [address] [place] [phone] Aug, Deficiency of other specifie d B group vitamins E53.8 [facility] [address] [facility] [id number] [address] [place] [phone] Aug, [facility] [address] [facility] [id number] [address] [place] [phone] Jul, Urinary frequency R35.0 [facility] [address] [facility] [id number] [address] [place] [phone] Jul, Urinary frequency R35.0 [facility] [address] [facility] [id number] [address] [place] [phone] Jul, [facility] [address] [facility] [id number] [address] [place] [phone] Jul, [facility] [address] [facility] [id number] [address] [place] [phone] Jun, Pain in left knee M25.562 [facility] [address] [facility] [id number] [address] [place] [phone] Jun, [facility] [address] [facility] [id number] [address] [place] [phone] May, Swelling of left knee joint M25.462 [facility] [address] [facility] [id number] [address] [place] [phone] May, [facility] [address] [facility] [id number] [address] [place] [phone] May, [facility] [address] [facility] [id number] [address] [place] [phone] May, [facility] [address] [facility] [id number] [address] [place] [phone] Apr, Renal insufficiency N28.9 an d Chronic kidney disease, stage 4 (severe) N18.4 [facility] [address] [facility] [id number] [address] [place] [phone] Apr, Unspecified kidney failure N 19 [facility] [address] [facility] [id number] [address] [place] [phone] Apr, Unspecified kidney failure N 19 [facility] [address] [facility] [id number] [address] [place] [phone] Apr, [facility] [address] [facility] [id number] [address] [place] [phone] Apr, Hyperparathyroidism, unspeci fied 252.00 [facility] [address] [facility] [id number] [address] [place] [phone] Apr, [facility] [address] [facility] [id number] [address] [place] [phone] Mar, [facility] [address] [facility] [id number] [address] [place] [phone] Mar, [facility] [address] [facility] [id number] [address] [place] [phone] Mar, Hyperparathyroidism, unspeci fied 252.00 [facility] [address] [facility] [id number] [address] [place] [phone] Feb, [facility] [address] [facility] [id number] [address] [place] [phone] Feb, Otalgia 388.[address] [facility] [address] [id number] Feb, [facility] [address] [place] [id number] [place] [phone] Feb, [facility] [address] [place] [id number] [address] [place] [phone] Jan, [facility] [address] [facility] [id number] [address] [place] [phone] Jan, Hyperparathyroidism, unspeci fied 252.00 [facility] [address] [phone] Jan, [facility] [address] [place] [id number] [address] [place] [phone] Jan, Other B-complex deficiencies 266.2 and Hyperparathyroidism, unspecified 252.00 [facility] [address] [id number] [address] [place] [phone] Jan, [facility] [address] [id number] [address] [place] [phone] Jan, [facility] [address] [id number] [address] [place] [phone] Jan, [facility] [address] [id number] [address] [place] [phone] Dec, [facility] [address] [id number] [address] [place] [phone] Dec, [facility] [address] [id number] [address] [place] [phone] Dec, [facility] [address] [id number] [address] [place] [phone] Nov, Routine check-up V70.0 and P re-op exam V72.84 [facility] [address] [id number] [address] [place] [phone] Nov, [facility] [address] [id number] [address] [place] [phone] Nov, [facility] [address] [id number] [address] [place] [id number] October, [facility] [address] [id number] [address] [place] [address] October, Other B-complex deficiencies 266.2 [facility] [address] [id number] [address] [place] [id number] October, [facility] [address] [id number] [address] [place] [id number] 14 Sep, 2014 [facility] [address] [id number] [address] [place] [id number] Sep, [facility] [address] [id number] [address] [place] [id number] Aug, [facility] [address] [id number] [address] [place] [address], [place] [address] 20 Aug, 2014 [facility] [address] [id number] [address] [place] [address], [place] [address] 17 Aug, 2014 [facility] [address] [id number] [address] [place] [address], [place] [address] 17 Aug, 2014 [facility] [address] [id number] [address] [place] [address], [place] [address] Aug, 2014 [facility] [address] [id number] [address] [place] [address], [place] [address] Aug, 2014 [facility] [address] [id number] [address] [place] [address], [place] [address] 18 Jul, 2014 [facility] [address] [id number] [address] [place] [address], [place] [address] 18 Jul, 2014 [facility] [address] [id number] [address] [place] [address], [place] [address] 17 Jul, 2014 [facility] [address] [id number] [address] [place] [address], [place] [address] 17 Jul, 2014 [facility] [address] [id number] [address] [place] [address], [place] [address] Jul, 2014 [facility] [address] [id number] [address] [place] [address], [place] [address] 12 Jul, 2014 [facility] [address] [id number] [address] [place] [address], [place] [address] Jul, 2014 [facility] [address] [id number] [address] [place] [address], [place] [address] 10 Jul, 2014 [facility] [address] [id number] [address] [place] [address], [place] [address] 09 Jul, 2014 [facility] [address] [id number] [address] [place] [address], [place] [address] 09 Jul, 2014 [facility] [address] [id number] [address] [place] [address] [place] [address] Jul, [facility] [address] [id number] [address] [place] [address], [place] [address] Jul, [facility] [address] [id number] [address] [place] [address], [place] [address] Jul, [facility] [address] [id number] [address] [place] [address], [place] [address] Jul, [facility] [address] [id number] [address] [place] [address], [place] [address] Jun, [facility] [address] [id number] [address] [place] [address], [place] [address] Jun, [facility] [address] [id number] [address] [place] [address], [place] [address] Jun, [facility] [address] [id number] [address] [place] [address], [place] [address] Jun, [facility] [address] [id number] [address] [place] [address], [place] [address] Jun, [facility] [address] [id number] [address] [place] [address], [place] [address] Jun, [facility] [address] [id number] [address] [place] [address], [place] [address] Jun, [facility] [address] [id number] [address] [place] [address], [place] [address] Jun, [facility] [address] [id number] [address] [place] [address], [place] [address] Jun, [facility] [address] [id number] [address] [place] [address], [place] [address] Jun, [facility] [address] [id number] [address] [place] [address], [place] [address] Jun, [facility] [address] [id number] [address] [place] [address], [place] [address] Jun, [facility] [address] [id number] [address] [place] [address], [place] [address] Jun, [facility] [address] [id number] [address] [place] [address], [place] [address] Jun, [facility] [address] [id number] [address] [place] [address], [place] [address] May, [facility] [address] [id number] [address] [place] [address], [place] [address] May, [facility] [address] [id number] [address] [place] [address], [place] [address] May, [facility] [address] [id number] [address] [place] [address], [place] [address] May, [facility] [address] [id number] [address] [place] [address], [place] [address] Apr, [facility] [address] [id number] [address] [place] [address], [place] [address] Apr, [facility] [address] [id number] [address] [place] [address], [place] [address] Apr, [facility] [address] [id number] [address] [place] [address], [place] [address] Apr, [facility] [address] [id number] [address] [place] [address], [place] [address] Apr, [facility] [address] [id number] [address] [place] [address], [place] [address] Apr, [facility] [address] [id number] [address] [place] [address], [place] [address] Mar, [facility] [address] [id number] [address] [place] [address], [place] [address] Mar, [facility] [address] [id number] [address] [place] [address], [place] [address] Mar, [facility] [address] [id number] [address] [place] [id number] 22 Mar, 2014 [facility] [address] [id number] [address] [place] [address], [place] [address] 15 Mar, 2014 [facility] [address] [id number] [address] [place] [id number] 15 Mar, 2014 [facility] [address] [id number] [address] [place] [address], [place] [address] 13 Mar, 2014 [facility] [address] [id number] [address] [place] [id number] 13 Mar, 2014 [facility] [address] [id number] [address] [place] [address], [place] [address] 07 Mar, 2014 [facility] [address] [id number] [address] [place] [id number] 07 Mar, 2014 [facility] [address] [id number] [address] [place] [id number] 07 Mar, 2014 [facility] [address] [id number] [address] [place] [id number] 07 Mar, 2014 [facility] [address] [id number] [address] [place] [id number] 06 Mar, 2014 [facility] [address] [id number] [address] [place] [address], [place] [address] 26 Feb, 2013 [facility] [address] [id number] [address] [place] [id number] 26 Sep, 2013 [facility] [address] [id number] [address] [place] [id number] 23 Feb, 2013 [facility] [address] [id number] [address] [place] [address], [place] [address] 23 Feb, 2013 [facility] [address] [id number] [address] [place] [address], [place] [address] 19 Feb, 2013 [facility] [address] [id number] [address] [place] [address], [place] [address] 19 Feb, 2013 [facility] [address] [id number] [facility] [place] [address] 13 Feb, 2014 [facility] [address] [id number] [address] [place] [address], [place] [address] 13 Feb, 2014 [facility] [address] [id number] [address] [place] [address], [place] [address] 12 Feb, 2014 [facility] [address] [id number] [address] [place] [address], [place] [address] Feb, [facility] [address] [id number] [address] [place] [address], [place] [address] Jan, [facility] [address] [id number] [address] [place] [address], [place] [address] Jan, [facility] [address] [id number] [address] [place] [address], [place] [address] Dec, [facility] [address] [id number] [address] [place] [address], [place] [address] Dec, [facility] [address] [id number] [address] [place] [address], [place] [address] Dec, [facility] [address] [id number] [address] [place] [address], [place] [address] Dec, [facility] [address] [id number] [address] [place] [address], [place] [address] Dec, [facility] [address] [id number] [address] [place] [address], [place] [address] Dec, [facility] [address] [id number] [address] [place] [address], [place] [address] Nov, [facility] [address] [id number] [address] [place] [address], [place] [address] Nov, [facility] [address] [id number] [address] [place] [address], [place] [address] Nov, [facility] [address] [id number] [address] [place] [address], [place] [address] Nov, [facility] [address] [id number] [facility] [place] [address] October, [facility] [address] [id number] [address] [place] [address], [place] [address] October, [facility] [address] [id number] [address] [place] [address], [place] [address] October, [facility] [address] [id number] [address] [place] [address], [place] [address] October, [facility] [address] [id number] [address] [place] [address], [place] [address] October, [facility] [address] [id number] [address] [place] [address], [place] [address] October, [facility] [address] [id number] [address] [place] [address], [place] [address] October, [facility] [address] [id number] [address] [place] [address], [place] [address] October, [facility] [address] [id number] [address] [place] [address], [place] [address] October, [facility] [address] [id number] [address] [place] [address], [place] [address] October, [facility] [address] [id number] [address] [place] [address], [place] [address] October, [facility] [address] [id number] [address] [place] [address], [place] [address] October, [facility] [address] [id number] [address] [place] [address], [place] [address] October, [facility] [address] [id number] [address] [place] [address], [place] [address] October, [facility] [address] [id number] [address] [place] [address], [place] [address] October, [facility] [address] [id number] [address] [place] [address], [place] [address] October, [facility] [address] [id number] [facility] [place] [address] Sep, [facility] [address] [id number] [address] [place] [address], [place] [address] Sep, [facility] [address] [id number] [address] [place] [address], [place] [address] Sep, [facility] [address] [id number] [address] [place] [address], [place] [address] Sep, [facility] [address] [id number] [address] [place] [address], [place] [address] Sep, [facility] [address] [id number] [address] [place] [address], [place] [address] Sep, [facility] [address] [id number] [address] [place] [address], [place] [address] Aug, [facility] [address] [id number] [address] [place] [address], [place] [address] Aug, [facility] [address] [id number] [address] [place] [address], [place] [address] Aug, [facility] [address] [id number] [address] [place] [address], [place] [address] Aug, [facility] [address] [id number] [address] [place] [address], [place] [address] Aug, [facility] [address] [id number] [address] [place] [address], [place] [address] Aug, [facility] [address] [id number] [address] [place] [address], [place] [address] Jul, [facility] [address] [id number] [address] [place] [address], [place] [address] Jul, [facility] [address] [id number] [address] [place] [address], [place] [address] Jul, [facility] [address] [id number] [address] [place] [address], [place] [address] Jul, [facility] [address] [id number] [address] [place] [address], [place] [address] Jun, [facility] [address] [id number] [address] [place] [address], [place] [address] Jun, [facility] [address] [id number] [address] [place] [address], [place] [address] May, [facility] [address] [id number] [address] [place] [address], [place] [address] May, [facility] [address] [id number] [address] [place] [address], [place] [address] May, [facility] [address] [id number] [address] [place] [address], [place] [address] May, [facility] [address] [id number] [address] [place] [address], [place] [address] May, [facility] [address] [id number] [address] [place] [address], [place] [address] Apr, [facility] [address] [id number] [address] [place] [address], [place] [address] Apr, [facility] [address] [id number] [address] [place] [address], [place] [address] Apr, [facility] [address] [id number] [address] [place] [address] Apr, [facility] [address] [id number] [address] [place] [address], [place] [address] Apr, [facility] [address] [id number] [address] [place] [address], [place] [address] Apr, [facility] [address] [id number] [address] [place] [address], [place] [address] 15 Mar, 2013 [facility] [address] [id number] [address] [place] [id number] 15 Mar, 2013 [facility] [address] [id number] [address] [place] [address], [place] [address] 14 Mar, 2013 [facility] [address] [id number] [address] [place] [address], [place] [address] 14 Mar, 2013 [facility] [address] [id number] [address] [place] [address], [place] [address] 11 Mar, 2013 [facility] [address] [id number] [address] [place] [address], [place] [address] 11 Mar, 2013 [facility] [address] [id number] [address] [place] [address], [place] [address] 23 Feb, 2013 [facility] [address] [id number] [address] [place] [address], [place] [address] Feb, [facility] [address] [id number] [address] [place] [address], [place] [address] Feb, [facility] [address] [id number] [address] [place] [address], [place] [address] Jan, [facility] [address] [id number] [address] [place] [address], [place] [address] Jan, [facility] [address] [id number] [address] [place] [address], [place] [address] Jan, [facility] [address] [id number] [address] [place] [address], [place] [address] Jan, [facility] [address] [id number] [address] [place] [address], [place] [address] Jan, [facility] [address] [id number] [address] [place] [address], [place] [address] Jan, [facility] [address] [id number] [address] [place] [address], [place] [address] Dec, [facility] [address] [id number] [address] [place] [address], [place] [address] Dec, [facility] [address] [id number] [address] [place] [address], [place] [address] Dec, [facility] [address] [id number] [address] [place] [address], [place] [address] Dec, [facility] [address] [id number] [address] [place] [address], [place] [address] Dec, [facility] [address] [id number] [address] [place] [address], [place] [address] Dec, [facility] [address] [id number] [address] [place] [address], [place] [address] Nov, [facility] [address] [id number] [address] [place] [address], [place] [address] Nov, [facility] [address] [id number] [address] [place] [address], [place] [address] Nov, [facility] [address] [id number] [address] [place] [address], [place] [address] Nov, [facility] [address] [id number] [address] [place] [address], [place] [id number] Nov, [facility] [address] [id number] [address] [place] [address], [place] [id number] Nov, [facility] [address] [id number] [address] [place] [address], [place] [id number] October, [facility] [address] [id number] [address] [place] [address], [place] [id number] October, [facility] [address] [id number] [address] [place] [address], [place] [id number] October, [facility] [address] [id number] [address] [place] [address], [place] [id number] October, [facility] [address] [id number] [address] [place] [address], [place] [id number] October, [facility] [address] [id number] [address] [place] [address], [place] [id number] Sep, [facility] [address] [id number] [address] [place] [address], [place] [id number] 23 Sep, 2012 [facility] [address] [id number] [address] [place] [address], [place] [id number] Sep, [facility] [address] [id number] [address] [place] [address], [place] [id number] 18 Sep, 2012 [facility] [address] [id number] [address] [place] [address], [place] [id number] Sep, [facility] [address] [id number] [address] [place] [address], [place] [id number] 26 Aug, 2012 [facility] [address] [id number] [address] [place] [address], [place] [id number] 07 Aug, 2012 [facility] [address] [id number] [address] [place] [address], [place] [id number] Aug, [facility] [address] [id number] [address] [place] [address], [place] [id number] Jul, [facility] [address] [id number] [address] [place] [address], [place] [id number] 20 Jul, 2012 [facility] [address] [id number] [address] [place] [address], [place] [id number] Jul, [facility] [address] [id number] [address] [place] [address], [place] [id number] 08 Jul, 2012 [facility] [address] [id number] [address] [place] [address], [place] [id number] 06 Jul, 2012 [facility] [address] [id number] [address] [place] [address], [place] [id number] 05 Jul, 2012 [facility] [address] [id number] [address] [place] [address], [place] [id number] 15 Jun, 2012 [facility] [address] [id number] [address] [place] [address], [place] [id number] 16 Apr, 2012 [facility] [address] [id number] [address] [place] [address], [place] [id number] 16 Apr, 2012 [facility] [address] [id number] [address] [place] [address], [place] [id number] Apr, [facility] [address] [id number] [address] [place] [address], [place] [id number] Apr, [facility] [address] [id number] [address] [place] [address], [place] [id number] Mar, [facility] [address] [id number] [address] [place] [address], [place] [id number] Mar, [facility] [address] [id number] [address] [place] [address], [place] [id number] Mar, [facility] [address] [id number] [address] [place] [address], [place] [id number] Mar, [facility] [address] [id number] [address] [place] [address], [place] [id number] Mar, [facility] [address] [id number] [address] [place] [address], [place] [id number] Feb, [facility] [address] [id number] [address] [place] [address], [place] [id number] Jan, [facility] [address] [id number] [address] [place] [address], [place] [id number] Jan, [facility] [address] [id number] [address] [place] [address], [place] [id number] Jan, [facility] [address] [id number] [address] [place] [address], [place] [id number] Dec, [facility] [address] [id number] [address] [place] [address], [place] [id number] Nov, [facility] [address] [id number] [address] [place] [address], [place] [id number] Nov, [facility] [address] [id number] [address] [place] [address], [place] [id number] Nov, [facility] [address] [facility] [id number] [address] [place] [id number] Nov, [facility] [address] [facility] [id number] [address] [place] [id number] Nov, [facility] [address] [facility] [facility] [id number] [address] [place] [phone] October, [facility] [address] [facility] [id number] [address] [place] [id number] October, [facility] [address] [facility] [id number] [address] [place] [phone] October, [facility] [address] [facility] [id number] [address] [place] [id number] October, [facility] [address] [facility] [id number] [address] [place] [phone] October, IMMUNIZATIONS No Known Immunizations SOCIAL HISTORY [...]
--- OUTSIDE RECORDS SUMMARY | 2020-01-25 07:57 | XMS REPORT ---
Author Author Velma ACOSTA Organization [facility] Address [address] [place] [address] Care Team Providers Care Steel Checker Name Role Phone SRIKANTH ACOSTA Unavailable PROBLEMS Type Condition ICD9-CM Code [id number] Code Onset Dates Condition S tatus SNOMED Code Problem Hyperparathyroidism E21.3 Active 54037172 Problem Mood disorder F39 Active 531613 05 Problem Arthritis M19.90 Active 9661701 Problem Primary insomnia F51.01 Active 397 2004 Problem Myalgia M79.1 Active 06980978 Problem Hypercholesteremia E78.0 Active 1 5458433 Problem Primary osteoarthritis of left knee M17.12 Active [id number] Problem Chronic kidney disease, stage 4 (severe) N18.4 Active 804141961 Problem 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 Active 74484223 Problem Corns L84 Active 413152784 Problem BPV (benign positional vertigo), bilateral H81.13 Active 384128727 Problem 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 Active 68184759 ALLERGIES No Information ENCOUNTERS Encounter Location Date Diagnosis [place] [address] [place] [id number] [address] [place] [address] May, Exercise counseling Z71.82 [place] [address] [facility] [id number] [address] [place] [address] May, Labyrinthitis of left ear H8 3.02 [place] [address] [facility] [id number] [address] [place] [address] May, Exercise counseling Z71.82 [place] [address] [place] [id number] [address] [place] [address] Apr, Arthritis M19.90 [facility] [address] [facility] [id number] [address] [place] [address] Apr, Exercise counseling Z71.82 [facility] [address] [place] [id number] [address] [place] [address] Apr, Exercise counseling Z71.82 [facility] [address] [place] [id number] [address] [place] [address] Apr, Primary osteoarthritis of le ft knee M17.12 [place] [address] [address] Apr, Labyrinthitis of left ear H8 3.02 [place] [address] [place] [address] Mar, Arthritis M19.90 [place] [address] [address] Mar, [place] [address] [address] Mar, Chronic kidney disease, stag e 4 (severe) N18.4 [place] [address] [address] Mar, Chronic kidney disease, stag e 4 (severe) N18.4 [place] [address] [address] Mar, Labyrinthitis of left ear H8 3.02 [place] [address] [address] Mar, Chronic kidney disease, stag e 4 (severe) N18.4 ; Knee pain, left anterior M25.562 ; Deficiency of other specified B group vitamins E53.8 and Encounter for immunization Z23 [place] [address] [place] [id number] [address] [place] [address] Mar, Arthritis M19.90 [facility] [address] [place] [id number] [address] [place] [address] Feb, Labyrinthitis of left ear H8 3.02 [place] [address] [facility] [id number] [address] [place] [address] Feb, Arthritis M19.90 [facility] [address] [facility] [id number] [address] [place] [address] Jan, Labyrinthitis of left ear H8 3.02 [facility] [address] [facility] [id number] [address] [place] [address] Jan, Arthritis M19.90 [facility] [address] [facility] [id number] [address] [place] [address] Dec, Labyrinthitis of left ear H8 3.02 [place] [address] [facility] [id number] [address] [place] [address] Nov, Arthritis M19.90 [place] [address] [place] [id number] [address] [place] [address] Nov, Labyrinthitis of left ear H8 3.02 [place] [address] [place] [id number] [address] [place] [address] Nov, BMI 40.0-44.9, adult Z68.41 ; Chronic kidney disease, stage 4 (severe) N18.4 and Acute right-sided thoracic back pain M54.6 [place] [address] [place] [id number] [address] [place] [address] October, Labyrinthitis of left ear H8 3.02 and Arthritis M19.90 [place] [address] [place] [id number] [address] [place] [address] Sep, BPV (benign positional verti go), bilateral H81.13 ; Dysfunction of left eustachian tube H69.82 and BMI 40.0-44.9, adult Z68.41 [facility] [address] [facility] [id number] [address] [place] [address] Sep, Labyrinthitis of left ear H8 3.02 and Arthritis M19.90 [place] [address] [place] [id number] [address] [place] [address] Sep, [facility] [address] [place] [id number] [address] [place] [address] Sep, [facility] [address] [place] [id number] [address] [place] [address] Sep, Chronic kidney disease, stag e 4 (severe) N18.4 [facility] [address] [place] [id number] [place] [address] Sep, Chronic kidney disease, stag e 4 (severe) N18.4 [facility] [address] [place] [id number] [place] [address] Aug, Labyrinthitis of left ear H8 3.02 and Arthritis M19.90 [place] [address] [address] Aug, [facility] [address] [place] [id number] [place] [address] Jul, [facility] [address] [place] [id number] [place] [address] Jul, Arthritis M19.90 and Labyrin thitis of left ear H83.02 [place] [address] [address] Jul, [facility] [address] [address] Jun, [facility] [address] [place] [id number] [address] [place] [address] Jun, Arthritis M19.90 and Labyrin thitis of left ear H83.02 [place] [address] [address] 09 Jun, 2017 Pre-op evaluation Z01.818 ; BMI 40.0-44.9, adult Z68.41 and Encounter for immunization Z23 [place] [address] [address] May, Arthritis M19.90 and Labyrin thitis of left ear H83.02 [place] [address] [address] Apr, Labyrinthitis of left ear H8 3.02 [facility] [address] [address] 07 Apr, 2017 Arthritis M19.90 and Labyrin thitis of left ear H83.02 [place] [address] [address] Mar, Arthritis M19.90 and Labyrin thitis of left ear H83.02 [place] [address] [address] 05 Mar, 2017 Chronic kidney disease, stag e 4 (severe) N18.4 [place] [address] [address] 06 Feb, 2017 Arthritis M19.90 and Labyrin thitis of left ear H83.02 [place] [address] [address] Jan, Labyrinthitis of left ear H8 3.02 and Deficiency of other specified B group vitamins E53.8 [place] [address] [address] Dec, Arthritis M19.90 [place] [address] [address] Dec, BPV (benign positional verti go), bilateral H81.13 [place] [address] [place] [id number] [place] [address] Dec, [place] [address] [place] [id number] [place] [address] Dec, [place] [address] [address] Dec, [facility] [address] [facility] [id number] [address] [place] [address] Nov, Arthritis M19.90 and Deficie ncy of other specified B group vitamins E53.8 [facility] [address] [facility] [id number] [address] [place] [address] Nov, Arthritis M19.90 [facility] [address] [facility] [id number] [address] [place] [address] Nov, Hyperparathyroidism E21.3 [facility] [address] [facility] [id number] [address] [place] [address] October, [facility] [address] [facility] [id number] [address] [place] [address] October, Hyperparathyroidism E21.3 [facility] [address] [place] [id number] [address] [place] [address] October, [facility] [address] [facility] [id number] [address] [place] [address] October, Renal insufficiency N28.9 an d Hyperparathyroidism E21.3 [facility] [address] [facility] [id number] [address] [place] [address] October, [facility] [address] [facility] [id number] [address] [place] [address] October, Renal insufficiency N28.9 an d Hyperparathyroidism E21.3 [facility] [address] [facility] [id number] [address] [place] [address] October, Arthritis M19.90 [facility] [address] [facility] [id number] [address] [place] [address] Sep, [facility] [address] [facility] [id number] [address] [place] [address] Sep, Lumbar neuritis M54.16 ; Tho racic abscess J86.9 and Deficiency of other specified B group vitamins E53.8 [facility] [address] [place] [address] Sep, [facility] [address] [place] [id number] [address] [place] [address] Aug, Arthritis M19.90 [facility] [address] [place] [id number] [address] [place] [address] Aug, Hyperparathyroidism E21.3 [facility] [address] [place] [address] Aug, Hyperparathyroidism E21.3 [facility] [address] [place] [id number] [address] [place] [address] Aug, Arthritis M19.90 [facility] [address] [address] Jul, Mass of throat R22.1 [facility] [address] [address] Jul, [facility] [address] [place] [id number] [address] [place] [address] Jul, Arthritis M19.90 [facility] [address] [address] Jun, Arthritis M19.90 [facility] [address] [place] [id number] [address] [place] [address] Jun, [facility] [address] [place] [id number] [address] [place] [address] Jun, Renal insufficiency N28.9 an d 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 [facility] [address] [place] [id number] [address] [place] [address] 05 Jun, 2016 Medicare welcome exam Z00.00 ; Encounter for immunization Z23 ; Arthritis M19.90 ; Medicare annual wellness visit, initial Z00.00 ; Medicare annual wellness visit, subsequent Z00.00 and 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.8 [facility] [address] [place] [id number] [address] [place] [address] 29 May, 2016 Renal insufficiency N28.9 an d 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 [facility] [address] [facility] [id number] [address] [place] [address] May, Renal insufficiency N28.9 [facility] [address] [facility] [id number] [address] [place] [address] 16 May, 2016 Renal insufficiency N28.9 [facility] [address] [facility] [id number] [address] [place] [address] 14 May, 2016 [facility] [address] [facility] [id number] [address] [place] [address] Apr, [facility] [address] [facility] [id number] [address] [place] [address] 16 Apr, 2016 [facility] [address] [facility] [id number] [address] [place] [address] 14 Apr, 2016 Mass of throat R22.1 [facility] [address] [facility] [id number] [address] [place] [address] 10 Apr, 2016 [facility] [address] [facility] [id number] [address] [place] [address] 10 Apr, 2016 Mass of throat R22.1 [facility] [address] [facility] [id number] [address] [place] [address] 04 Apr, 2016 Mass of throat R22.1 [facility] [address] [facility] [id number] [address] [place] [address] Mar, [facility] [address] [facility] [id number] [address] [place] [address] Mar, [facility] [address] [facility] [id number] [address] [place] [address] Mar, [facility] [address] [facility] [id number] [address] [place] [address] 24 Mar, 2016 Parathyroid abnormality E21. 5 and Encounter for immunization Z23 [facility] [address] [id number] [address] [place] [address] 17 Mar, 2016 [facility] [address] [id number] [address] [place] [address] Mar, [facility] [address] [facility] [id number] [address] [place] [address] 21 Feb, 2016 Renal insufficiency N28.9 an d Hyperparathyroidism E21.3 [facility] [address] [facility] [id number] [address] [place] [address] 19 Feb, 2016 [facility] [address] [id number] [address] [place] [address] 15 Feb, 2016 Renal insufficiency N28.9 an d Hyperparathyroidism E21.3 [facility] [address] [facility] [id number] [address] [place] [address] 14 Feb, 2016 [facility] [address] [facility] [id number] [address] [place] [address] Feb, [facility] [address] [facility] [id number] [address] [place] [address] 09 Feb, 2016 [facility] [address] [facility] [id number] [address] [place] [address] Jan, [facility] [address] [facility] [id number] [address] [place] [address] Jan, Arthritis M19.90 ; Lumbago w ith sciatica, right side M54.41 and Other chronic pain G89.29 [facility] [address] [facility] [id number] [address] [place] [address] Jan, [facility] [address] [facility] [id number] [address] [place] [address] Dec, Arthritis M19.90 ; Lumbago w ith sciatica, right side M54.41 and Other chronic pain G89.29 [facility] [address] [facility] [id number] [address] [place] [address] Nov, Deficiency of other specifie d B group vitamins E53.8 ; Primary insomnia F51.01 ; Mood disorder F39 and Lumbago with sciatica, right side M54.41 [facility] [address] [address] Nov, Hyperparathyroidism E21.3 [facility] [address] [place] [id number] [place] [address] Nov, Unspecified kidney failure N 19 and Hyperparathyroidism E21.3 [facility] [address] [address] October, Hyperparathyroidism E21.3 [facility] [address] [address] October, [facility] [address] [address] October, Hyperparathyroidism E21.3 [facility] [address] [address] October, Hyperparathyroidism E21.3 [facility] [address] [address] Sep, Hyperparathyroidism E21.3 ; Hypercholesterolemia E78.0 and Arthritis M19.90 [facility] [address] [address] Aug, [facility] [address] [address] Aug, Deficiency of other specifie d B group vitamins E53.8 [facility] [address] [place] [id number] [address] [place] [address] Aug, [facility] [address] [address] Jul, Urinary frequency R35.0 [facility] [address] [address] Jul, Urinary frequency R35.0 [facility] [address] [address] Jul, [facility] [address] [id number] [address] [place] [address] Jul, [facility] [address] [facility] [id number] [address] [place] [address] Jun, Pain in left knee M25.562 [facility] [address] [id number] [address] [place] [address] Jun, [facility] [address] [id number] [address] [place] [address] May, Swelling of left knee joint M25.462 [facility] [address] [facility] [id number] [address] [place] [address] May, [facility] [address] [facility] [id number] [address] [place] [address] May, [facility] [address] [facility] [id number] [address] [place] [address] May, [facility] [address] [facility] [id number] [address] [place] [address] Apr, Renal insufficiency N28.9 an d Chronic kidney disease, stage 4 (severe) N18.4 [facility] [address] [facility] [id number] [address] [place] [address] Apr, Unspecified kidney failure N 19 [facility] [address] [facility] [id number] [address] [place] [address] Apr, Unspecified kidney failure N 19 [facility] [address] [facility] [id number] [address] [place] [address] Apr, [facility] [address] [facility] [id number] [address] [place] [address] Apr, Hyperparathyroidism, unspeci fied 252.00 [facility] [address] [facility] [id number] [address] [place] [address] Apr, [facility] [address] [id number] [address] [place] [address] Mar, [facility] [address] [id number] [address] [place] [address] Mar, [facility] [address] [id number] [address] [place] [address] Mar, Hyperparathyroidism, unspeci fied 252.00 [facility] [address] [id number] [address] [place] [address] Feb, [facility] [address] [id number] [address] [place] [address] Feb, Otalgia 388.70 [facility] [address] [id number] [address] [place] [address] Feb, [facility] [address] [id number] [address] [place] [address] Feb, [facility] [address] [id number] [address] [place] [address] Jan, [facility] [address] [id number] [address] [place] [address] Jan, Hyperparathyroidism, unspeci fied 252.00 [facility] [address] [id number] [address] [place] [address] Jan, [facility] [address] [id number] [address] [place] [address] Jan, Other B-complex deficiencies 266.2 and Hyperparathyroidism, unspecified 252.00 [facility] [address] [id number] [address] [place] [address] Jan, [facility] [address] [id number] [address] [place] [address] Jan, [facility] [address] [facility] [id number] [address] [place] [address] Jan, [facility] [address] [id number] [address] [place] [address] Dec, [facility] [address] [id number] [address] [place] [address] Dec, [facility] [address] [id number] [address] [place] [address] Dec, [facility] [address] [id number] [address] [place] [address] Nov, Routine check-up V70.0 and P re-op exam V72.84 [facility] [address] [id number] [address] [place] [address] Nov, [facility] [address] [id number] [address] [place] [address] Nov, [facility] [address] [id number] [address] [place] [address] October, [facility] [address] [id number] [address] [place] [address] October, Other B-complex deficiencies 266.2 [facility] [address] [id number] [address] [place] [address] October, [facility] [address] [id number] [address] [place] [address] Sep, [facility] [address] [id number] [address] [place] [address] Sep, [facility] [address] [id number] [address] [place] [address] Aug, [facility] [address] [id number] [address] [place] [address] Aug, [facility] [address] [id number] [address] [place] [id number] Aug, [facility] [address] [id number] [address] [place] [id number] Aug, [facility] [address] [id number] [address] [place] [address], [place] [id number] Aug, 2014 [facility] [address] [id number] [address] [place] [address], [place] [id number] Aug, 2014 [facility] [address] [id number] [address] [place] [address], [place] [id number] Jul, 2014 [facility] [address] [id number] [address] [place] [address], [place] [id number] Jul, 2014 [facility] [address] [id number] [address] [place] [address], [place] [id number] Jul, 2014 [facility] [address] [id number] [address] [place] [address], [place] [id number] Jul, 2014 [facility] [address] [id number] [address] [place] [address], [place] [id number] Jul, 2014 [facility] [address] [id number] [address] [place] [address], [place] [id number] Jul, 2014 [facility] [address] [id number] [address] [place] [address], [place] [id number] Jul, 2014 [facility] [address] [id number] [address] [place] [address], [place] [id number] Jul, 2014 [facility] [address] [id number] [address] [place] [address], [place] [id number] Jul, 2014 [facility] [address] [id number] [address] [place] [id number] Jul, 2014 [facility] [address] [id number] [address] [place] [address], [place] [id number] Jul, 2014 [facility] [address] [id number] [address] [place] [address], [place] [address] Jul, 2014 [facility] [address] [id number] [address] [place] [id number] 02 Jul, 2014 [facility] [address] [id number] [address] [place] [address] Jul, [facility] [address] [id number] [address] [place] [address], [place] [address] Jun, [facility] [address] [id number] [address] [place] [address], [place] [address] Jun, [facility] [address] [id number] [address] [place] [address], [place] [address] Jun, [facility] [address] [id number] [address] [place] [address], [place] [address] Jun, [facility] [address] [id number] [address] [place] [address], [place] [id number] Jun, [facility] [address] [id number] [address] [place] [address], [place] [address] Jun, [facility] [address] [id number] [address] [place] [address], [place] [address] Jun, [facility] [address] [id number] [address] [place] [address], [place] [address] Jun, [facility] [address] [id number] [address] [place] [address], [place] [address] Jun, [facility] [address] [id number] [address] [place] [address], [place] [address] Jun, [facility] [address] [id number] [address] [place] [address], [place] [address] Jun, [facility] [address] [id number] [address] [place] [address], [place] [address] Jun, [facility] [address] [id number] [address] [place] [address], [place] [address] Jun, [facility] [address] [id number] [address] [place] [address], [place] [address] Jun, [facility] [address] [id number] [address] [place] [address], [place] [address] May, [facility] [address] [id number] [address] [place] [address], [place] [id number] 15 May, 2014 [facility] [address] [id number] [address] [place] [address], [place] [address] May, [facility] [address] [id number] [address] [place] [address], [place] [id number] May, [facility] [address] [id number] [address] [place] [address], [place] [address] Apr, [facility] [address] [id number] [address] [place] [address], [place] [address] Apr, [facility] [address] [id number] [address] [place] [address], [place] [address] Apr, [facility] [address] [id number] [address] [place] [address], [place] [address] Apr, [facility] [address] [id number] [address] [place] [address], [place] [address] Apr, [facility] [address] [id number] [address] [place] [address], [place] [address] Apr, [facility] [address] [id number] [address] [place] [address], [place] [address] Mar, [facility] [address] [id number] [address] [place] [address], [place] [address] Mar, [facility] [address] [id number] [address] [place] [address], [place] [address] Mar, [facility] [address] [id number] [address] [place] [address], [place] [id number] Mar, [facility] [address] [id number] [address] [place] [address], [place] [address] Mar, [facility] [address] [id number] [address] [place] [address], [place] [address] Mar, [facility] [address] [id number] [address] [place] [address], [place] [address] 13 Mar, 2014 [facility] [address] [id number] [address] [place] [address], [place] [address] Mar, [facility] [address] [id number] [address] [place] [address], [place] [address] Mar, [facility] [address] [id number] [address] [place] [address], [place] [address] Mar, [facility] [address] [id number] [address] [place] [address], [place] [address] Mar, [facility] [address] [id number] [address] [place] [address], [place] [address] Mar, [facility] [address] [id number] [address] [place] [address], [place] [address] Mar, [facility] [address] [id number] [address] [place] [address], [place] [address] 26 Feb, 2013 [facility] [address] [id number] [address] [place] [address], [place] [id number] 26 Feb, 2013 [facility] [address] [id number] [address] [place] [address], [place] [address] 23 Feb, 2013 [facility] [address] [id number] [address] [place] [address], [place] [address] 23 Feb, 2013 [facility] [address] [id number] [address] [place] [address], [place] [address] 19 Feb, 2013 [facility] [address] [id number] [address] [place] [id number] 19 Feb, 2013 [facility] [address] [id number] [address] [place] [address], [place] [address] 13 Feb, 2013 [facility] [address] [id number] [address] [place] [address], [place] [id number] 13 Feb, 2013 [facility] [address] [id number] [address] [place] [address], [place] [address] 12 Feb, 2013 [facility] [address] [id number] [address] [place] [address], [place] [address] Feb, [facility] [address] [id number] [address] [place] [address], [place] [address] Jan, [facility] [address] [id number] [address] [place] [address], [place] [address] Jan, [facility] [address] [id number] [address] [place] [address], [place] [address] Dec, [facility] [address] [id number] [address] [place] [address], [place] [address] Dec, [facility] [address] [id number] [address] [place] [address], [place] [address] Dec, [facility] [address] [id number] [address] [place] [address], [place] [address] Dec, [facility] [address] [id number] [address] [place] [address], [place] [address] Dec, [facility] [address] [id number] [address] [place] [address], [place] [address] Dec, [facility] [address] [id number] [address] [place] [address], [place] [address] Nov, [facility] [address] [id number] [address] [place] [address], [place] [address] Nov, [facility] [address] [id number] [address] [place] [address], [place] [address] Nov, [facility] [address] [id number] [address] [place] [address], [place] [address] Nov, [facility] [address] [id number] [address] [place] [address], [place] [address] October, [facility] [address] [id number] [address] [place] [address], [place] [address] October, [facility] [address] [id number] [address] [place] [address], [place] [address] October, [facility] [address] [id number] [facility] [place] [address] October, [facility] [address] [id number] [address] [place] [address], [place] [address] October, [facility] [address] [id number] [address] [place] [address], [place] [address] October, [facility] [address] [id number] [address] [place] [address], [place] [address] October, [facility] [address] [id number] [address] [place] [address], [place] [address] October, [facility] [address] [id number] [address] [place] [address], [place] [address] October, [facility] [address] [id number] [address] [place] [address], [place] [address] October, [facility] [address] [id number] [address] [place] [address], [place] [address] October, [facility] [address] [id number] [address] [place] [address], [place] [address] October, [facility] [address] [id number] [address] [place] [address], [place] [address] October, [facility] [address] [id number] [address] [place] [address], [place] [address] October, [facility] [address] [id number] [address] [place] [address], [place] [address] October, [facility] [address] [id number] [address] [place] [address], [place] [address] October, [facility] [address] [id number] [address] [place] [address], [place] [address] Sep, [facility] [address] [id number] [address] [place] [address], [place] [address] Sep, [facility] [address] [id number] [address] [place] [address], [place] [address] Sep, [facility] [address] [id number] [address] [place] [address], [place] [address] 14 Sep, 2013 [facility] [address] [id number] [address] [place] [address], [place] [address] Sep, [facility] [address] [id number] [address] [place] [address], [place] [address] Sep, [facility] [address] [id number] [address] [place] [address], [place] [address] Aug, [facility] [address] [id number] [address] [place] [address], [place] [address] Aug, [facility] [address] [id number] [address] [place] [address], [place] [address] Aug, [facility] [address] [id number] [address] [place] [address], [place] [address] Aug, [facility] [address] [id number] [address] [place] [address], [place] [address] Aug, [facility] [address] [id number] [address] [place] [address], [place] [address] Aug, [facility] [address] [id number] [address] [place] [address], [place] [address] Jul, [facility] [address] [id number] [address] [place] [address], [place] [address] Jul, [facility] [address] [id number] [address] [place] [address], [place] [address] Jul, [facility] [address] [id number] [address] [place] [address], [place] [address] Jul, [facility] [address] [id number] [address] [place] [address], [place] [address] Jun, [facility] [address] [id number] [address] [place] [address], [place] [address] Jun, [facility] [address] [id number] [address] [place] [address], [place] [id number] 11 May, 2013 [facility] [address] [id number] [address] [place] [address], [place] [address] 11 May, 2013 [facility] [address] [id number] [address] [place] [address], [place] [address] 10 May, 2013 [facility] [address] [id number] [address] [place] [address], [place] [address] May, [facility] [address] [id number] [address] [place] [address], [place] [address] May, [facility] [address] [id number] [address] [place] [address], [place] [address] Apr, [facility] [address] [id number] [address] [place] [address], [place] [address] Apr, [facility] [address] [id number] [address] [place] [address], [place] [address] Apr, [facility] [address] [id number] [address] [place] [address], [place] [address] Apr, [facility] [address] [id number] [address] [place] [address], [place] [id number] 04 Apr, 2013 [facility] [address] [id number] [address] [place] [address], [place] [id number] 04 Apr, 2013 [facility] [address] [id number] [address] [place] [address], [place] [id number] 15 Mar, 2013 [facility] [address] [id number] [address] [place] [address], [place] [id number] 15 Mar, 2013 [facility] [address] [id number] [address] [place] [address], [place] [id number] 14 Mar, 2013 [facility] [address] [id number] [address] [place] [address], [place] [id number] 14 Mar, 2013 [facility] [address] [id number] [address] [place] [address], [place] [address] Mar, [facility] [address] [id number] [address] [place] [address], [place] [address] Mar, [facility] [address] [id number] [address] [place] [address], [place] [address] Feb, [facility] [address] [id number] [address] [place] [address], [place] [address] Feb, [facility] [address] [id number] [address] [place] [address], [place] [address] Feb, [facility] [address] [id number] [address] [place] [address], [place] [address] Jan, [facility] [address] [id number] [address] [place] [address], [place] [address] Jan, [facility] [address] [id number] [address] [place] [address], [place] [address] Jan, [facility] [address] [id number] [address] [place] [address], [place] [address] Jan, [facility] [address] [id number] [address] [place] [address], [place] [address] Jan, [facility] [address] [id number] [address] [place] [address], [place] [address] Jan, [facility] [address] [id number] [address] [place] [address], [place] [address] Dec, [facility] [address] [id number] [address] [place] [address], [place] [id number] Dec, [facility] [address] [id number] [address] [place] [address], [place] [address] Dec, [facility] [address] [id number] [address] [place] [address], [place] [id number] Dec, [facility] [address] [id number] [address] [place] [address], [place] [id number] Dec, [facility] [address] [id number] [address] [place] [address], [place] [address] 09 Dec, 2012 [facility] [address] [id number] [address] [place] [address], [place] [address] 26 Nov, 2012 [facility] [address] [id number] [address] [place] [address], [place] [address] Nov, [facility] [address] [id number] [address] [place] [address], [place] [id number] 18 Nov, 2012 [facility] [address] [id number] [address] [place] [address], [place] [address] 13 Nov, 2012 [facility] [address] [id number] [address] [place] [address], [place] [address] Nov, [facility] [address] [id number] [address] [place] [address], [place] [address] Nov, [facility] [address] [id number] [address] [place] [address], [place] [address] October, [facility] [address] [id number] [address] [place] [address], [place] [address] October, [facility] [address] [id number] [address] [place] [address], [place] [address] October, [facility] [address] [id number] [address] [place] [address], [place] [address] October, [facility] [address] [id number] [address] [place] [address], [place] [address] October, [facility] [address] [id number] [address] [place] [address], [place] [id number] 30 Sep, 2012 [facility] [address] [id number] [address] [place] [address], [place] [address] Sep, [facility] [address] [id number] [address] [place] [address], [place] [id number] Sep, [facility] [address] [id number] [address] [place] [address], [place] [id number] 18 Sep, 2012 [facility] [address] [id number] [address] [place] [address], [place] [id number] Sep, [facility] [address] [id number] [address] [place] [address], [place] [id number] 26 Aug, 2012 [facility] [address] [id number] [address] [place] [address], [place] [id number] 07 Aug, 2012 [facility] [address] [id number] [address] [place] [address], [place] [id number] 04 Aug, 2012 [facility] [address] [id number] [address] [place] [address], [place] [id number] Jul, [facility] [address] [id number] [address] [place] [address], [place] [id number] 20 Jul, 2012 [facility] [address] [id number] [address] [place] [address], [place] [id number] Jul, [facility] [address] [id number] [address] [place] [address], [place] [id number] 08 Jul, 2012 [facility] [address] [id number] [address] [place] [address], [place] [id number] 06 Jul, 2012 [facility] [address] [id number] [address] [place] [address], [place] [id number] 05 Jul, 2012 [facility] [address] [id number] [address] [place] [address], [place] [id number] Jun, [facility] [address] [id number] [address] [place] [address], [place] [id number] 16 Apr, 2012 [facility] [address] [id number] [address] [place] [address], [place] [id number] Apr, [facility] [address] [id number] [address] [place] [address], [place] [id number] Apr, [facility] [address] [id number] [address] [place] [address], [place] [id number] Apr, [facility] [address] [id number] [address] [place] [address], [place] [id number] Mar, [facility] [address] [id number] [address] [place] [address], [place] [id number] Mar, [facility] [address] [id number] [address] [place] [address], [place] [id number] Mar, [facility] [address] [id number] [address] [place] [address], [place] [id number] Mar, [facility] [address] [id number] [address] [place] [address], [place] [id number] Mar, [facility] [address] [id number] [address] [place] [address], [place] [id number] Feb, [facility] [address] [id number] [address] [place] [address], [place] [id number] Jan, [facility] [address] [id number] [address] [place] [address], [place] [id number] Jan, [facility] [address] [id number] [address] [place] [address], [place] [id number] Jan, [facility] [address] [id number] [address] [place] [address], [place] [id number] Dec, [facility] [address] [id number] [address] [place] [address], [place] [id number] Nov, [facility] [address] [id number] [address] [place] [address], [place] [id number] Nov, [facility] [address] [id number] [address] [place] [address], [place] [id number] Nov, [facility] [address] [id number] [address] [place] [address], [place] [id number] Nov, [facility] [address] [id number] [address] [place] [address], [place] [id number] Nov, [facility] [address] [id number] [address] [place] [address], [place] [id number] October, [facility] [address] [facility] [id number] [address] [place] [id number] October, [facility] [address] [facility] [id number] [address] [place] [id number] October, [facility] [address] [facility] [id number] [address] [place] [id number] October, [facility] [address] [facility] [id number] [address] [place] [id number] October, IMMUNIZATIONS No Known Immunizations SOCIAL HISTORY [...]
--- OUTSIDE RECORDS SUMMARY | 2020-01-25 07:58 | XMS REPORT ---
Author Author Velma CORDERO Organization [facility] Address [address] [place] [address] Care Team Providers Care Body Coverer Name Role Phone STEPHAN CORDERO Unavailable PROBLEMS Type Condition ICD9-CM Code [id number] Code Onset Dates Condition S tatus SNOMED Code Problem Hyperparathyroidism E21.3 Active 84590990 Problem Mood disorder F39 Active 006697 05 Problem Arthritis M19.90 Active 1584024 Problem Primary insomnia F51.01 Active 397 2004 Problem Myalgia M79.1 Active 79131994 Problem Hypercholesteremia E78.0 Active 1 5411360 Problem Primary osteoarthritis of left knee M17.12 Active [id number] Problem Chronic kidney disease, stage 4 (severe) N18.4 Active 912664913 Problem 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 Active 43797598 Problem Corns L84 Active 277389668 Problem BPV (benign positional vertigo), bilateral H81.13 Active 524954705 Problem 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 Active 92564983 ALLERGIES No Information ENCOUNTERS Encounter Location Date Diagnosis [place] [id number] [facility] [id number] [address] [place] [phone] May, [facility] [address] [facility] [id number] [address] [place] [address] Apr, Arthritis M19.90 [facility] [address] [facility] [id number] [address] [place] [address] Apr, Exercise counseling Z71.82 [place] [address] [facility] [id number] [address] [place] [address] Apr, Exercise counseling Z71.82 [place] [address] [facility] [id number] [address] [place] [address] Apr, Primary osteoarthritis of le ft knee M17.12 [place] [address] [facility] [id number] [address] [place] [address] Apr, Labyrinthitis of left ear H8 3.02 [facility] [address] [facility] [id number] [address] [place] [address] Mar, Arthritis M19.90 [facility] [address] [place] [id number] [address] [place] [phone] Mar, [facility] [address] [place] [id number] [address] [place] [address] Mar, Chronic kidney disease, stag e 4 (severe) N18.4 [place] [address] [place] [id number] [place] [address] Mar, Chronic kidney disease, stag e 4 (severe) N18.4 [place] [address] [place] [id number] [address] [place] [address] Mar, Labyrinthitis of left ear H8 3.02 [facility] [address] [place] [id number] [address] [place] [address] Mar, Chronic kidney disease, stag e 4 (severe) N18.4 ; Knee pain, left anterior M25.562 ; 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 and Encounter for immunization Z23 [place] [address] [place] [id number] [address] [place] [address] Mar, Arthritis M19.90 [facility] [address] [place] [id number] [address] [place] [phone] Feb, Labyrinthitis of left ear H8 3.02 [facility] [address] [place] [id number] [address] [place] [address] Feb, Arthritis M19.90 [facility] [address] [place] [id number] [address] [place] [address] Jan, Labyrinthitis of left ear H8 3.02 [facility] [address] [address] Jan, Arthritis M19.90 [place] [address] [address] Dec, Labyrinthitis of left ear H8 3.02 [place] [address] [place] [id number] [place] [address] Nov, Arthritis M19.90 [place] [address] [address] Nov, Labyrinthitis of left ear H8 3.02 [place] [address] [address] Nov, BMI 40.0-44.9, adult Z68.41 ; Chronic kidney disease, stage 4 (severe) N18.4 and Acute right-sided thoracic back pain M54.6 [place] [address] [address] October, Labyrinthitis of left ear H8 3.02 and Arthritis M19.90 [place] [address] [address] Sep, BPV (benign positional verti go), bilateral H81.13 ; Dysfunction of left eustachian tube H69.82 and BMI 40.0-44.9, adult Z68.41 [place] [address] [address] Sep, Labyrinthitis of left ear H8 3.02 and Arthritis M19.90 [place] [address] [address] Sep, [place] [address] [address] Sep, [place] [address] [address] Sep, Chronic kidney disease, stag e 4 (severe) N18.4 [facility] [address] [facility] [id number] [address] [place] [address] Sep, Chronic kidney disease, stag e 4 (severe) N18.4 [facility] [address] [id number] [address] [place] [address] Aug, Labyrinthitis of left ear H8 3.02 and Arthritis M19.90 [facility] [address] [id number] [address] [place] [address] Aug, [facility] [address] [facility] [id number] [address] [place] [address] Jul, [facility] [address] [facility] [id number] [address] [place] [address] Jul, Arthritis M19.90 and Labyrin thitis of left ear H83.02 [facility] [address] [facility] [id number] [address] [place] [address] Jul, [facility] [address] [facility] [id number] [address] [place] [address] Jun, [facility] [address] [facility] [id number] [address] [place] [address] Jun, Arthritis M19.90 and Labyrin thitis of left ear H83.02 [facility] [address] [facility] [id number] [address] [place] [address] Jun, Pre-op evaluation Z01.818 ; BMI 40.0-44.9, adult Z68.41 and Encounter for immunization Z23 [facility] [address] [facility] [id number] [address] [place] [address] May, Arthritis M19.90 and Labyrin thitis of left ear H83.02 [facility] [address] [facility] [id number] [address] [place] [address] Apr, Labyrinthitis of left ear H8 3.02 [facility] [address] [place] [id number] [address] [place] [address] Apr, Arthritis M19.90 and Labyrin thitis of left ear H83.02 [facility] [address] [place] [id number] [address] [place] [address] 10 Mar, 2017 Arthritis M19.90 and Labyrin thitis of left ear H83.02 [place] [address] [place] [id number] [address] [place] [address] Mar, Chronic kidney disease, stag e 4 (severe) N18.4 [place] [address] [facility] [id number] [address] [place] [address] Feb, Arthritis M19.90 and Labyrin thitis of left ear H83.02 [place] [address] [place] [id number] [address] [place] [address] Jan, Labyrinthitis of left ear H8 3.02 and 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.8 [place] [address] [place] [id number] [address] [place] [address] Dec, Arthritis M19.90 [place] [address] [place] [id number] [place] [phone] Dec, BPV (benign positional verti go), bilateral H81.13 [place] [address] [place] [id number] [address] [place] [address] Dec, [place] [address] [place] [id number] [address] [place] [address] Dec, [place] [address] [facility] [id number] [address] [place] [address] Dec, [facility] [address] [facility] [id number] [address] [place] [address] Nov, Arthritis M19.90 and Deficie ncy of other specified B group vitamins E53.8 [place] [address] [facility] [id number] [address] [place] [address] Nov, Arthritis M19.90 [facility] [address] [facility] [id number] [address] [place] [address] Nov, Hyperparathyroidism E21.3 [facility] [address] [facility] [id number] [address] [place] [address] October, [facility] [address] [facility] [id number] [address] [place] [address] October, Hyperparathyroidism E21.3 [facility] [address] [facility] [id number] [address] [place] [address] October, [facility] [address] [facility] [id number] [address] [place] [address] October, Renal insufficiency N28.9 an d Hyperparathyroidism E21.3 [facility] [address] [facility] [id number] [address] [place] [address] October, [facility] [address] [facility] [id number] [address] [place] [address] October, Renal insufficiency N28.9 an d Hyperparathyroidism E21.3 [facility] [address] [facility] [id number] [address] [place] [address] October, Arthritis M19.90 [facility] [address] [facility] [id number] [address] [place] [phone] Sep, [facility] [address] [facility] [id number] [address] [place] [address] Sep, Lumbar neuritis M54.16 ; Tho racic abscess J86.9 and Deficiency of other specified B group vitamins E53.8 [facility] [address] [facility] [id number] [address] [place] [address] Sep, [facility] [address] [facility] [id number] [address] [place] [address] Aug, Arthritis M19.90 [facility] [address] [facility] [id number] [address] [place] [address] 23 Mar, 2017 Hyperparathyroidism E21.3 [facility] [address] [facility] [id number] [address] [place] [address] Aug, Hyperparathyroidism E21.3 [facility] [address] [facility] [id number] [address] [place] [address] Aug, Arthritis M19.90 [facility] [address] [facility] [id number] [address] [place] [address] Jul, Mass of throat R22.1 [facility] [address] [facility] [id number] [address] [place] [address] Jul, [facility] [address] [facility] [id number] [address] [place] [address] Jul, Arthritis M19.90 [facility] [address] [facility] [id number] [address] [place] [address] Jun, Arthritis M19.90 [facility] [address] [facility] [id number] [address] [place] [address] Jun, [facility] [address] [place] [id number] [address] [place] [address] Jun, Renal insufficiency N28.9 an d 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 [facility] [address] [facility] [id number] [address] [place] [address] 05 Jun, 2016 Medicare welcome exam Z00.00 ; Encounter for immunization Z23 ; Arthritis M19.90 ; Medicare annual wellness visit, initial Z00.00 ; Medicare annual wellness visit, subsequent Z00.00 and 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 [facility] [address] [facility] [id number] [address] [place] [address] May, Renal insufficiency N28.9 an d 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 [facility] [address] [facility] [id number] [address] [place] [address] May, Renal insufficiency N28.9 [facility] [address] [facility] [id number] [address] [place] [address] May, Renal insufficiency N28.9 [facility] [address] [id number] [address] [place] [phone] 14 May, 2016 [facility] [address] [id number] [address] [place] [phone] 16 Apr, 2016 [facility] [address] [facility] [id number] [address] [place] [phone] 16 Apr, 2016 [facility] [address] [id number] [address] [place] [phone] 14 Apr, 2016 Mass of throat R22.1 [facility] [address] [id number] [address] [place] [id number] Apr, [facility] [address] [id number] [address] [place] [address] Apr, Mass of throat R22.1 [facility] [address] [id number] [address] [place] [address] 04 Apr, 2016 Mass of throat R22.1 [facility] [address] [id number] [address] [place] [address] Mar, [facility] [address] [id number] [address] [place] [address] Mar, [facility] [address] [facility] [id number] [address] [place] [address] Mar, [facility] [address] [facility] [id number] [address] [place] [address] 24 Mar, 2016 Parathyroid abnormality E21. 5 and Encounter for immunization Z23 [facility] [address] [id number] [address] [place] [address] 17 Mar, 2016 [facility] [address] [facility] [id number] [address] [place] [address] Mar, [facility] [address] [facility] [id number] [address] [place] [address] Feb, Renal insufficiency N28.9 an d Hyperparathyroidism E21.3 [facility] [address] [facility] [id number] [address] [place] [address] 19 Feb, 2016 [facility] [address] [facility] [id number] [address] [place] [address] 15 Feb, 2016 Renal insufficiency N28.9 an d Hyperparathyroidism E21.3 [facility] [address] [facility] [id number] [address] [place] [address] 14 Feb, 2016 [facility] [address] [facility] [id number] [address] [place] [address] 12 Feb, 2016 [facility] [address] [facility] [id number] [address] [place] [phone] 09 Feb, 2016 [facility] [address] [facility] [id number] [address] [place] [address] Jan, [facility] [address] [place] [id number] [address] [place] [address] Jan, Arthritis M19.90 ; Lumbago w ith sciatica, right side M54.41 and Other chronic pain G89.29 [place] [address] [facility] [id number] [address] [place] [address] Jan, [facility] [address] [facility] [id number] [address] [place] [address] Dec, Arthritis M19.90 ; Lumbago w ith sciatica, right side M54.41 and Other chronic pain G89.29 [facility] [address] [facility] [id number] [address] [place] [address] Nov, Deficiency of other specifie d B group vitamins E53.8 ; Primary insomnia F51.01 ; Mood disorder F39 and Lumbago with sciatica, right side M54.41 [facility] [address] [facility] [id number] [address] [place] [address] Nov, Hyperparathyroidism E21.3 [facility] [address] [place] [id number] [address] [place] [address] Nov, Unspecified kidney failure N 19 and Hyperparathyroidism E21.3 [facility] [address] [address] October, Hyperparathyroidism E21.3 [facility] [address] [address] October, [facility] [address] [address] October, Hyperparathyroidism E21.3 [facility] [address] [address] October, Hyperparathyroidism E21.3 [facility] [address] [address] Sep, Hyperparathyroidism E21.3 ; Hypercholesterolemia E78.0 and Arthritis M19.90 [facility] [address] [address] Aug, [facility] [address] [address] Aug, Deficiency of other specifie d B group vitamins E53.8 [facility] [address] [address] Aug, [facility] [address] [address] Jul, Urinary frequency R35.0 [facility] [address] [address] Jul, Urinary frequency R35.0 [facility] [address] [address] Jul, [facility] [address] [address] Jul, [facility] [address] [address] Jun, Pain in left knee M25.562 [facility] [address] [id number] [address] [place] [address] Jun, [facility] [address] [facility] [id number] [address] [place] [address] May, Swelling of left knee joint M25.462 [facility] [address] [facility] [id number] [address] [place] [address] May, [facility] [address] [facility] [id number] [address] [place] [address] May, [facility] [address] [facility] [id number] [address] [place] [address] May, [facility] [address] [place] [id number] [address] [place] [address] Apr, Renal insufficiency N28.9 an d Chronic kidney disease, stage 4 (severe) N18.4 [facility] [address] [facility] [id number] [address] [place] [address] Apr, Unspecified kidney failure N 19 [facility] [address] [facility] [id number] [address] [place] [address] Apr, Unspecified kidney failure N 19 [facility] [address] [facility] [id number] [address] [place] [address] Apr, [facility] [address] [facility] [id number] [address] [place] [address] Apr, Hyperparathyroidism, unspeci fied 252.00 [facility] [address] [facility] [id number] [address] [place] [address] Apr, [facility] [address] [facility] [id number] [address] [place] [phone] Mar, [facility] [address] [facility] [id number] [address] [place] [id number] Mar, [facility] [address] [facility] [id number] [address] [place] [address] Mar, Hyperparathyroidism, unspeci fied 252.00 [facility] [address] [id number] [address] [place] [address] Feb, [facility] [address] [id number] [address] [place] [address] Feb, Otalgia 388.70 [facility] [address] [id number] [address] [place] [address] Feb, [facility] [address] [id number] [address] [place] [phone] Feb, [facility] [address] [id number] [address] [place] [address] Jan, [facility] [address] [id number] [address] [place] [address] Jan, Hyperparathyroidism, unspeci fied 252.00 [facility] [address] [id number] [address] [place] [id number] Jan, [facility] [address] [id number] [address] [place] [phone] Jan, Other B-complex deficiencies 266.2 and Hyperparathyroidism, unspecified 252.00 [facility] [address] [id number] [address] [place] [phone] Jan, [facility] [address] [id number] [address] [place] [phone] Jan, [facility] [address] [id number] [address] [place] [phone] Jan, [facility] [address] [facility] [id number] [address] [place] [phone] Dec, [facility] [address] [facility] [id number] [address] [place] [phone] Dec, [facility] [address] [facility] [id number] [address] [place] [phone] Dec, [facility] [address] [id number] [address] [place] [id number] 15 Nov, 2014 Routine check-up V70.0 and P re-op exam V72.84 [facility] [address] [id number] [address] [place] [id number] 12 Nov, 2014 [facility] [address] [id number] [address] [place] [id number] 09 Nov, 2014 [facility] [address] [id number] [address] [place] [phone] October, [facility] [address] [id number] [address] [place] [id number] October, Other B-complex deficiencies 266.2 [facility] [address] [id number] [address] [place] [id number] October, [facility] [address] [id number] [address] [place] [phone] Sep, [facility] [address] [id number] [address] [place] [id number] Sep, [facility] [address] [id number] [address] [place] [id number] Aug, [facility] [address] [id number] [address] [place] [phone] Aug, [facility] [address] [id number] [address] [place] [phone] Aug, [facility] [address] [id number] [address] [place] [id number] 17 Aug, 2014 [facility] [address] [id number] [address] [place] [phone] Aug, [facility] [address] [id number] [address] [place] [id number] Aug, [facility] [address] [id number] [address] [place] [id number] 18 Jul, 2014 [facility] [address] [address] [id number] [address] [place] [address], [place] [address] 18 Jul, 2014 [facility] [address] [id number] [address] [place] [address], [place] [address] Jul, 2014 [facility] [address] [id number] [address] [place] [address], [place] [address] Jul, 2014 [facility] [address] [id number] [address] [place] [address], [place] [address] Jul, 2014 [facility] [address] [id number] [address] [place] [address], [place] [address] Jul, 2014 [facility] [address] [id number] [address] [place] [address], [place] [address] Jul, 2014 [facility] [address] [id number] [address] [place] [address], [place] [address] Jul, 2014 [facility] [address] [id number] [address] [place] [address], [place] [address] Jul, 2014 [facility] [address] [id number] [address] [place] [address], [place] [address] Jul, 2014 [facility] [address] [id number] [address] [place] [address], [place] [address] Jul, 2014 [facility] [address] [id number] [address] [place] [address], [place] [address] Jul, 2014 [facility] [address] [id number] [address] [place] [id number] Jul, 2014 [facility] [address] [id number] [address] [place] [address], [place] [address] Jul, 2014 [facility] [address] [id number] [address] [place] [address], [place] [address] Jun, [facility] [address] [id number] [address] [place] [address], [place] [address] Jun, [facility] [address] [id number] [address] [place] [address], [place] [address] Jun, [facility] [address] [id number] [address] [place] [address], [place] [address] Jun, [facility] [address] [id number] [address] [place] [address], [place] [address] Jun, [facility] [address] [id number] [address] [place] [address], [place] [address] Jun, [facility] [address] [id number] [address] [place] [address], [place] [address] Jun, [facility] [address] [id number] [address] [place] [address], [place] [address] Jun, [facility] [address] [id number] [address] [place] [address], [place] [address] Jun, [facility] [address] [id number] [address] [place] [address], [place] [address] Jun, [facility] [address] [id number] [address] [place] [address], [place] [address] Jun, [facility] [address] [id number] [address] [place] [address], [place] [address] Jun, [facility] [address] [id number] [address] [place] [address], [place] [address] Jun, [facility] [address] [id number] [address] [place] [address], [place] [address] Jun, [facility] [address] [id number] [address] [place] [address], [place] [address] May, [facility] [address] [id number] [address] [place] [address], [place] [address] May, [facility] [address] [id number] [address] [place] [address], [place] [address] May, [facility] [address] [id number] [address] [place] [address], [place] [address] May, [facility] [address] [id number] [address] [place] [address], [place] [address] Apr, [facility] [address] [id number] [address] [place] [address], [place] [address] Apr, [facility] [address] [id number] [address] [place] [address], [place] [address] Apr, [facility] [address] [id number] [address] [place] [address], [place] [address] Apr, [facility] [address] [id number] [address] [place] [address], [place] [address] Apr, [facility] [address] [id number] [address] [place] [address], [place] [address] Apr, [facility] [address] [id number] [address] [place] [address], [place] [address] Mar, [facility] [address] [id number] [address] [place] [address], [place] [address] Mar, [facility] [address] [id number] [address] [place] [address], [place] [address] Mar, [facility] [address] [id number] [address] [place] [address], [place] [address] Mar, [facility] [address] [id number] [address] [place] [address], [place] [address] Mar, [facility] [address] [id number] [address] [place] [address], [place] [address] 15 Mar, 2014 [facility] [address] [id number] [address] [place] [address], [place] [address] Mar, [facility] [address] [id number] [address] [place] [address], [place] [address] Mar, [facility] [address] [id number] [address] [place] [address], [place] [address] Mar, [facility] [address] [id number] [address] [place] [address], [place] [address] 07 Mar, 2014 [facility] [address] [id number] [address] [place] [address], [place] [address] 07 Mar, 2014 [facility] [address] [id number] [address] [place] [address], [place] [address] 07 Mar, 2014 [facility] [address] [id number] [address] [place] [address], [place] [address] Mar, [facility] [address] [id number] [address] [place] [address], [place] [address] 26 Feb, 2013 [facility] [address] [id number] [address] [place] [address], [place] [address] 26 Feb, 2013 [facility] [address] [id number] [address] [place] [address], [place] [address] 23 Feb, 2014 [facility] [address] [id number] [address] [place] [address], [place] [address] 23 Feb, 2013 [facility] [address] [id number] [address] [place] [address], [place] [address] 19 Feb, 2013 [facility] [address] [id number] [address] [place] [address], [place] [address] 19 Feb, 2014 [facility] [address] [id number] [address] [place] [address], [place] [address] 13 Feb, 2014 [facility] [address] [id number] [address] [place] [address], [place] [address] 13 Feb, 2014 [facility] [address] [id number] [address] [place] [address], [place] [address] 12 Feb, 2014 [facility] [address] [id number] [address] [place] [address], [place] [address] 12 Feb, 2014 [facility] [address] [id number] [address] [place] [address], [place] [address] 15 Jan, 2014 [facility] [address] [id number] [address] [place] [address], [place] [address] 15 Jan, 2014 [facility] [address] [id number] [facility] [address] Dec, [facility] [address] [id number] [facility] [place] [address] Dec, [facility] [address] [id number] [facility] [place] [address] Dec, [facility] [address] [id number] [address] [place] [address], [place] [address] Dec, [facility] [address] [id number] [address] [place] [address], [place] [address] Dec, [facility] [address] [id number] [address] [place] [address], [place] [address] Dec, [facility] [address] [id number] [address] [place] [address], [place] [address] Nov, [facility] [address] [id number] [address] [place] [address], [place] [address] Nov, [facility] [address] [id number] [address] [place] [address], [place] [address] Nov, [facility] [address] [id number] [address] [place] [address], [place] [address] Nov, [facility] [address] [id number] [address] [place] [address], [place] [address] October, [facility] [address] [id number] [address] [place] [address], [place] [address] October, [facility] [address] [id number] [address] [place] [address], [place] [address] October, [facility] [address] [id number] [address] [place] [address], [place] [address] October, [facility] [address] [id number] [address] [place] [address], [place] [address] October, [facility] [address] [id number] [address] [place] [address], [place] [address] October, [facility] [address] [id number] [address] [place] [address], [place] [address] October, [facility] [address] [id number] [address] [place] [address], [place] [address] October, [facility] [address] [id number] [address] [place] [address], [place] [address] October, [facility] [address] [id number] [address] [place] [address], [place] [address] October, [facility] [address] [id number] [address] [place] [address], [place] [address] October, [facility] [address] [id number] [address] [place] [address], [place] [address] October, [facility] [address] [id number] [address] [place] [address], [place] [address] October, [facility] [address] [id number] [address] [place] [address], [place] [address] October, [facility] [address] [id number] [address] [place] [address], [place] [address] October, [facility] [address] [id number] [address] [place] [address], [place] [address] October, [facility] [address] [id number] [address] [place] [address], [place] [address] Sep, [facility] [address] [id number] [address] [place] [address], [place] [address] Sep, [facility] [address] [id number] [address] [place] [address], [place] [address] Sep, [facility] [address] [id number] [address] [place] [address], [place] [address] Sep, [facility] [address] [id number] [address] [place] [address], [place] [address] Sep, [facility] [address] [id number] [address] [place] [address], [place] [address] Sep, [facility] [address] [id number] [address] [place] [address], [place] [address] Aug, [facility] [address] [id number] [address] [place] [address], [place] [address] Aug, [facility] [address] [id number] [address] [place] [address], [place] [address] Aug, [facility] [address] [id number] [address] [place] [address], [place] [address] Aug, [facility] [address] [id number] [address] [place] [address], [place] [address] Aug, [facility] [address] [id number] [address] [place] [address], [place] [address] Aug, [facility] [address] [id number] [address] [place] [address], [place] [address] Jul, [facility] [address] [id number] [address] [place] [address], [place] [address] Jul, [facility] [address] [id number] [address] [place] [address], [place] [address] Jul, [facility] [address] [id number] [address] [place] [address], [place] [address] Jul, [facility] [address] [id number] [address] [place] [address], [place] [address] Jun, [facility] [address] [id number] [address] [place] [address], [place] [address] Jun, [facility] [address] [id number] [address] [place] [address], [place] [address] May, [facility] [address] [id number] [address] [place] [address], [place] [address] May, [facility] [address] [id number] [address] [place] [address], [place] [address] May, [facility] [address] [id number] [address] [place] [address], [place] [address] May, [facility] [address] [id number] [address] [place] [address], [place] [address] May, [facility] [address] [id number] [address] [place] [address], [place] [address] Apr, [facility] [address] [id number] [address] [place] [address], [place] [address] Apr, [facility] [address] [id number] [address] [place] [address], [place] [address] Apr, [facility] [address] [id number] [address] [place] [address], [place] [address] Apr, [facility] [address] [id number] [address] [place] [address], [place] [address] Apr, [facility] [address] [id number] [address] [place] [address], [place] [address] Apr, [facility] [address] [id number] [address] [place] [address], [place] [address] 15 Mar, 2013 [facility] [address] [id number] [address] [place] [address], [place] [address] 15 Mar, 2013 [facility] [address] [id number] [address] [place] [address], [place] [address] 14 Mar, 2013 [facility] [address] [id number] [address] [place] [address], [place] [address] 14 Mar, 2013 [facility] [address] [id number] [address] [place] [address], [place] [address] 11 Mar, 2013 [facility] [address] [id number] [address] [place] [address], [place] [address] 11 Mar, 2013 [facility] [address] [id number] [address] [place] [address], [place] [address] 23 Feb, 2013 [facility] [address] [id number] [address] [place] [address] Feb, [facility] [address] [id number] [address] [place] [address], [place] [address] Feb, [facility] [address] [id number] [address] [place] [address], [place] [address] Jan, [facility] [address] [id number] [address] [place] [address], [place] [address] Jan, [facility] [address] [id number] [address] [place] [address], [place] [address] Jan, [facility] [address] [id number] [address] [place] [address], [place] [address] Jan, [facility] [address] [id number] [address] [place] [address], [place] [address] Jan, [facility] [address] [id number] [address] [place] [address], [place] [address] Jan, [facility] [address] [id number] [address] [place] [address], [place] [address] Dec, [facility] [address] [id number] [address] [place] [address], [place] [address] Dec, [facility] [address] [id number] [address] [place] [address], [place] [address] Dec, [facility] [address] [id number] [address] [place] [address], [place] [address] Dec, [facility] [address] [id number] [address] [place] [address], [place] [address] Dec, [facility] [address] [id number] [address] [place] [address], [place] [address] Dec, [facility] [address] [id number] [address] [place] [address], [place] [address] Nov, [facility] [address] [id number] [address] [place] [address], [place] [address] Nov, [facility] [address] [id number] [address] [place] [address], [place] [address] 18 Nov, 2012 [facility] [address] [id number] [address] [place] [address], [place] [address] Nov, [facility] [address] [id number] [address] [place] [address], [place] [address] Nov, [facility] [address] [id number] [address] [place] [address], [place] [address] Nov, [facility] [address] [id number] [address] [place] [address], [place] [address] October, [facility] [address] [id number] [address] [place] [address], [place] [address] October, [facility] [address] [id number] [address] [place] [address], [place] [address] October, [facility] [address] [id number] [address] [place] [address], [place] [address] October, [facility] [address] [id number] [address] [place] [address], [place] [address] October, [facility] [address] [id number] [address] [place] [address], [place] [address] 30 Sep, 2012 [facility] [address] [id number] [address] [place] [address], [place] [address] Sep, [facility] [address] [id number] [address] [place] [address], [place] [address] Sep, [facility] [address] [id number] [address] [place] [address], [place] [address] 18 Sep, 2012 [facility] [address] [id number] [address] [place] [address], [place] [id number] 09 Sep, 2012 [facility] [address] [id number] [address] [place] [address], [place] [address] Aug, [facility] [address] [id number] [address] [place] [address], [place] [id number] Aug, [facility] [address] [id number] [address] [place] [address], [place] [address] Aug, [facility] [address] [id number] [address] [place] [address], [place] [address] Jul, [facility] [address] [id number] [address] [place] [address], [place] [id number] 20 Jul, 2012 [facility] [address] [id number] [address] [place] [address], [place] [address] Jul, [facility] [address] [id number] [address] [place] [address], [place] [id number] 08 Jul, 2012 [facility] [address] [id number] [address] [place] [address], [place] [id number] 06 Jul, 2012 [facility] [address] [id number] [address] [place] [address], [place] [id number] 05 Jul, 2012 [facility] [address] [id number] [address] [place] [address], [place] [id number] 15 Jun, 2012 [facility] [address] [id number] [address] [place] [address], [place] [id number] 16 Apr, 2012 [facility] [address] [id number] [address] [place] [address], [place] [id number] 16 Apr, 2012 [facility] [address] [id number] [address] [place] [address], [place] [address] Apr, [facility] [address] [id number] [address] [place] [id number] Apr, [facility] [address] [id number] [address] [place] [address], [place] [address] Mar, [facility] [address] [id number] [address] [place] [address], [place] [address] Mar, [facility] [address] [id number] [address] [place] [address], [place] [id number] Mar, [facility] [address] [id number] [address] [place] [address], [place] [address] Mar, [facility] [address] [id number] [address] [place] [address], [place] [id number] Mar, [facility] [address] [id number] [address] [place] [address], [place] [id number] Feb, [facility] [address] [id number] [address] [place] [address], [place] [address] Jan, [facility] [address] [id number] [address] [place] [address], [place] [id number] Jan, [facility] [address] [id number] [address] [place] [address], [place] [address] Jan, [facility] [address] [id number] [address] [place] [address], [place] [address] Dec, [facility] [address] [id number] [address] [place] [address], [place] [address] Nov, [facility] [address] [id number] [address] [place] [address], [place] [address] Nov, [facility] [address] [id number] [address] [place] [address], [place] [address] Nov, [facility] [address] [id number] [address] [place] [address], [place] [address] Nov, [facility] [address] [id number] [address] [place] [address], [place] [id number] Nov, [facility] [address] [id number] [address] [place] [address], [place] [address] October, [facility] [address] [id number] [address] [place] [address], [place] [address] October, [facility] [address] [id number] [address] [place] [address], [place] [id number] October, [facility] [address] [id number] [address] [place] [address], [place] [address] October, [facility] [address] [facility] [id number] [address] [place] [address] October, IMMUNIZATIONS No Known Immunizations SOCIAL HISTORY Never Assessed REASON FOR VISIT Controlled Med Refill PLAN OF CARE VITAL SIGNS MEDICATIONS Medication Instructions Dosage Frequency Start Date End Date Duration S tatus Hydrocodone-Acetaminophen 10-325 MG Orally 3 times a day 1 tablet a s needed 8h Apr, 28 days Active RESULTS No Results PROCEDURES [...]
--- OUTSIDE RECORDS SUMMARY | 2020-01-25 07:58 | XMS REPORT ---
Author Author Velma ACOSTA Organization [facility] Address [address] [place] [address] Care Team Providers Care Adjunct Political Science Instructor Name Role Phone SRIKANTH ACOSTA Unavailable PROBLEMS Type Condition ICD9-CM Code CSI69-HL Code Onset Dates Condition S tatus SNOMED Code Problem Hyperparathyroidism E21.3 Active 22901473 Problem Mood disorder F39 Active 651588 05 Problem Arthritis M19.90 Active 1720354 Problem Primary insomnia F51.01 Active 397 2004 Problem Myalgia M79.1 Active 43634762 Problem Hypercholesteremia E78.0 Active 1 9536684 Problem Primary osteoarthritis of left knee M17.12 Active [id number] Problem Chronic kidney disease, stage 4 (severe) N18.4 Active 343610791 Problem 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 Active 05451362 Problem Corns L84 Active 610331058 Problem BPV (benign positional vertigo), bilateral H81.13 Active 647778467 Problem 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 [id number] [address] [place] [phone] May, [facility] [address] [facility] [id number] [address] [place] [address] May, Exercise counseling Z71.82 [facility] [address] [facility] [id number] [address] [place] [address] Apr, Arthritis M19.90 [facility] [address] [facility] [id number] [address] [place] [address] Apr, Exercise counseling Z71.82 [facility] [address] [facility] [id number] [address] [place] [address] Apr, Exercise counseling Z71.82 [place] [id number] [place] [address] Apr, Primary osteoarthritis of le ft knee M17.12 [place] [address] [place] [id number] [place] [address] Apr, Labyrinthitis of left ear H8 3.02 [place] [address] [address] Mar, Arthritis M19.90 [place] [address] [address] Mar, [place] [address] [address] Mar, Chronic kidney disease, stag e 4 (severe) N18.4 [place] [address] [address] Mar, Chronic kidney disease, stag e 4 (severe) N18.4 [place] [address] [address] Mar, Labyrinthitis of left ear H8 3.02 [place] [address] [address] Mar, Chronic kidney disease, stag e 4 (severe) N18.4 ; Knee pain, left anterior M25.562 ; 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 [id number] [address] [place] [address] Jan, Arthritis M19.90 [facility] [address] [facility] [id number] [address] [place] [address] Dec, Labyrinthitis of left ear H8 3.02 [facility] [address] [facility] [id number] [address] [place] [address] Nov, Arthritis M19.90 [place] [address] [facility] [id number] [address] [place] [address] Nov, Labyrinthitis of left ear H8 3.02 [place] [address] [place] [id number] [address] [place] [address] Nov, BMI 40.0-44.9, adult Z68.41 ; Chronic kidney disease, stage 4 (severe) N18.4 and Acute right-sided thoracic back pain M54.6 [place] [address] [place] [id number] [address] [place] [address] October, Labyrinthitis of left ear H8 3.02 and Arthritis M19.90 [place] [address] [place] [id number] [address] [place] [address] Sep, BPV (benign positional verti go), bilateral H81.13 ; Dysfunction of left eustachian tube H69.82 and BMI 40.0-44.9, adult Z68.41 [facility] [address] [facility] [id number] [address] [place] [address] Sep, Labyrinthitis of left ear H8 3.02 and Arthritis M19.90 [facility] [address] [facility] [id number] [address] [place] [address] Sep, [facility] [address] [facility] [id number] [address] [place] [address] Sep, [facility] [address] [id number] [address] [place] [address] Sep, Chronic kidney disease, stag e 4 (severe) N18.4 [facility] [address] [id number] [address] [place] [address] Sep, Chronic kidney disease, stag e 4 (severe) N18.4 [facility] [address] [id number] [address] [place] [address] Aug, Labyrinthitis of left ear H8 3.02 and Arthritis M19.90 [facility] [address] [id number] [address] [place] [address] Aug, [facility] [address] [id number] [address] [place] [address] Jul, [facility] [address] [id number] [address] [place] [address] Jul, Arthritis M19.90 and Labyrin thitis of left ear H83.02 [facility] [address] [id number] [address] [place] [address] Jul, [facility] [address] [facility] [id number] [address] [place] [address] Jun, [facility] [address] [facility] [id number] [address] [place] [address] Jun, Arthritis M19.90 and Labyrin thitis of left ear H83.02 [facility] [address] [facility] [id number] [address] [place] [address] Jun, Pre-op evaluation Z01.818 ; BMI 40.0-44.9, adult Z68.41 and Encounter for immunization Z23 [facility] [address] [facility] [id number] [address] [place] [address] May, Arthritis M19.90 and Labyrin thitis of left ear H83.02 [facility] [address] [facility] [id number] [address] [place] [address] Apr, Labyrinthitis of left ear H8 3.02 [facility] [address] [facility] [id number] [address] [place] [address] Apr, Arthritis M19.90 and Labyrin thitis of left ear H83.02 [facility] [address] [facility] [id number] [address] [place] [address] Mar, Arthritis M19.90 and Labyrin thitis of left ear H83.02 [facility] [address] 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 [id number] [address] [place] [address] Dec, [facility] [address] [id number] [address] [place] [address] Dec, [facility] [address] [place] [id number] [address] [place] [address] Dec, [facility] [address] [facility] [id number] [address] [place] [address] Nov, Arthritis M19.90 and Deficie ncy of other specified B group vitamins E53.8 [facility] [address] [id number] [address] [place] [address] Nov, Arthritis M19.90 [facility] [address] [id number] [address] [place] [address] Nov, Hyperparathyroidism E21.3 [facility] [address] [facility] [id number] [address] [place] [address] October, [facility] [address] [facility] [id number] [address] [place] [address] October, Hyperparathyroidism E21.3 [facility] [address] [facility] [id number] [address] [place] [address] October, [facility] [address] [facility] [id number] [address] [place] [address] October, Renal insufficiency N28.9 an d Hyperparathyroidism E21.3 [facility] [address] [facility] [id number] [address] [place] [address] October, [facility] [address] [facility] [id number] [address] [place] [address] October, Renal insufficiency N28.9 an d Hyperparathyroidism E21.3 [facility] [address] [facility] [id number] [address] [place] [address] October, Arthritis M19.90 [facility] [address] [facility] [id number] [address] [place] [address] Sep, [facility] [address] 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 [id number] [address] [place] [address] Aug, Arthritis M19.90 [facility] [address] [facility] [id number] [address] [place] [address] Aug, Hyperparathyroidism E21.3 [facility] [address] [facility] [id number] [address] [place] [address] Aug, Hyperparathyroidism E21.3 [facility] [address] [facility] [id number] [address] [place] [address] Aug, Arthritis M19.90 [facility] [address] [place] [id number] [address] [place] [address] Jul, Mass of throat R22.1 [facility] [address] [address] Jul, [facility] [address] [address] Jul, Arthritis M19.90 [facility] [id number] [place] [address] Jun, Arthritis M19.90 [facility] [id number] [place] [address] Jun, [facility] [address] [place] [id number] [address] [place] [address] Jun, Renal insufficiency N28.9 an d 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 [id number] [address] [place] [address] May, Renal insufficiency N28.9 [facility] [address] [facility] [id number] [address] [place] [address] 16 May, 2016 Renal insufficiency N28.9 [facility] [address] [facility] [id number] [address] [place] [address] 14 May, 2016 [facility] [address] [facility] [id number] [address] [place] [address] Apr, [facility] [address] [facility] [id number] [address] [place] [phone] 16 Apr, 2016 [facility] [address] [facility] [id number] [address] [place] [address] 14 Apr, 2016 Mass of throat R22.1 [facility] [address] [facility] [id number] [address] [place] [address] Apr, [facility] [address] [facility] [id number] [address] [place] [address] Apr, Mass of throat R22.1 [facility] [address] [facility] [id number] [address] [place] [address] 04 Apr, 2016 Mass of throat R22.1 [facility] [address] [facility] [id number] [address] [place] [address] Mar, [facility] [address] [facility] [id number] [address] [place] [address] Mar, [facility] [address] [facility] [id number] [address] [place] [address] Mar, [facility] [address] [facility] [id number] [address] [place] [address] Mar, Parathyroid abnormality E21. 5 and Encounter for immunization Z23 [facility] [address] [facility] [id number] [address] [place] [address] 17 Mar, 2016 [facility] [address] [facility] [id number] [address] [place] [address] 11 Mar, 2016 [facility] [address] [id number] [address] [place] [address] 21 Feb, 2016 Renal insufficiency N28.9 an d Hyperparathyroidism E21.3 [facility] [address] [id number] [address] [place] [address] 19 Feb, 2016 [facility] [address] [id number] [address] [place] [phone] 15 Feb, 2016 Renal insufficiency N28.9 an d Hyperparathyroidism E21.3 [facility] [address] [id number] [address] [place] [address] 14 Feb, 2016 [facility] [address] [id number] [address] [place] [address] 12 Feb, 2016 [facility] [address] [facility] [id number] [address] [place] [address] 09 Feb, 2016 [facility] [address] [facility] [id number] [address] [place] [address] Jan, [facility] [address] [facility] [id number] [address] [place] [address] Jan, Arthritis M19.90 ; Lumbago w ith sciatica, right side M54.41 and Other chronic pain G89.29 [place] [address] [facility] [id number] [address] [place] [phone] Jan, [facility] [address] [facility] [id number] [address] [place] [address] Dec, Arthritis M19.90 ; Lumbago w ith sciatica, right side M54.41 and Other chronic pain G89.29 [place] [address] [facility] [id number] [address] [place] [address] 16 Nov, 2015 Deficiency of other specifie d B group vitamins E53.8 ; Primary insomnia F51.01 ; Mood disorder F39 and Lumbago with sciatica, right side M54.41 [facility] [address] [facility] [id number] [address] [place] [address] Nov, Hyperparathyroidism E21.3 [facility] [address] [facility] [id number] [address] [place] [address] Nov, Unspecified kidney failure N 19 and Hyperparathyroidism E21.3 [facility] [address] [facility] [id number] [address] [place] [address] October, Hyperparathyroidism E21.3 [facility] [address] [place] [id number] [address] [place] [address] October, [facility] [address] [place] [id number] [place] [address] October, Hyperparathyroidism E21.3 [facility] [address] [address] October, Hyperparathyroidism E21.3 [facility] [address] [place] [id number] [place] [address] Sep, Hyperparathyroidism E21.3 ; Hypercholesterolemia E78.0 and Arthritis M19.90 [facility] [address] [place] [id number] [address] [place] [address] Aug, [facility] [address] [address] Aug, Deficiency of other specifie d B group vitamins E53.8 [facility] [address] [place] [id number] [address] [place] [address] Aug, [facility] [address] [place] [id number] [address] [place] [address] Jul, Urinary frequency R35.0 [facility] [address] [place] [id number] [address] [place] [address] Jul, Urinary frequency R35.0 [facility] [address] [place] [id number] [address] [place] [address] Jul, [facility] [address] [place] [id number] [address] [place] [address] Jul, [facility] [address] [id number] [address] [place] [address] Jun, Pain in left knee M25.562 [facility] [address] [id number] [address] [place] [address] Jun, [facility] [address] [id number] [address] [place] [address] May, Swelling of left knee joint M25.462 [facility] [address] [id number] [address] [place] [phone] May, [facility] [address] [id number] [address] [place] [address] May, [facility] [address] [id number] [address] [place] [phone] May, [facility] [address] [facility] [id number] [address] [place] [address] Apr, Renal insufficiency N28.9 an d Chronic kidney disease, stage 4 (severe) N18.4 [facility] [address] [id number] [address] [place] [address] Apr, Unspecified kidney failure N 19 [facility] [address] [id number] [address] [place] [phone] Apr, Unspecified kidney failure N 19 [facility] [address] [facility] [id number] [address] [place] [phone] Apr, [facility] [address] [facility] [id number] [address] [place] [address] Apr, Hyperparathyroidism, unspeci fied 252.00 [facility] [address] [facility] [id number] [address] [place] [phone] Apr, [facility] [address] [facility] [id number] [address] [place] [id number] Mar, [facility] [address] [facility] [id number] [address] [place] [id number] Mar, [facility] [address] [facility] [id number] [address] [place] [phone] Mar, Hyperparathyroidism, unspeci fied 252.00 [facility] [address] [id number] [address] [place] [id number] Feb, [facility] [address] [facility] [id number] [address] [place] [phone] Feb, Otalgia 388.70 [facility] [address] [id number] [address] [place] [id number] Feb, [facility] [address] [facility] [id number] [address] [place] [id number] Feb, [facility] [address] [facility] [id number] [address] [place] [phone] Jan, [facility] [address] [facility] [id number] [address] [place] [id number] Jan, Hyperparathyroidism, unspeci fied 252.00 [facility] [address] [id number] [address] [place] [phone] Jan, [facility] [address] [facility] [id number] [address] [place] [id number] Jan, Other B-complex deficiencies 266.2 and Hyperparathyroidism, unspecified 252.00 [facility] [address] [facility] [id number] [address] [place] [id number] Jan, [facility] [address] [id number] [address] [place] [phone] Jan, [facility] [address] [facility] [id number] [address] [place] [phone] Jan, [facility] [address] [facility] [id number] [address] [place] [id number] Dec, [facility] [address] [facility] [id number] [address] [place] [id number] Dec, [facility] [address] [id number] [address] [place] [phone] Dec, [facility] [address] [id number] [address] [place] [id number] Nov, Routine check-up V70.0 and P re-op exam V72.84 [facility] [address] [id number] [address] [place] [address] Nov, [facility] [address] [id number] [address] [place] [address] Nov, [facility] [address] [id number] [address] [place] [address] October, [facility] [address] [id number] [address] [place] [address] October, Other B-complex deficiencies 266.2 [facility] [place] [address] [id number] [address] [place] [address] October, [facility] [address] [id number] [address] [place] [address] Sep, [facility] [address] [id number] [address] [place] [address] Sep, [facility] [place] [address] [id number] [address] [place] [address] Aug, [facility] [address] [id number] [address] [place] [address] 20 Aug, 2014 [facility] [address] [id number] [address] [place] [id number] 17 Aug, 2014 [facility] [address] [id number] [address] [place] [id number] 17 Aug, 2014 [facility] [address] [id number] [address] [place] [address] Aug, [facility] [address] [id number] [address] [place] [phone] Aug, [facility] [address] [id number] [address] [place] [address], [place] [address] Jul, 2014 [facility] [address] [id number] [address] [place] [address], [place] [address] Jul, 2014 [facility] [address] [id number] [address] [place] [address], [place] [address] Jul, 2014 [facility] [address] [id number] [address] [place] [address], [place] [address] Jul, 2014 [facility] [address] [id number] [address] [place] [address], [place] [address] Jul, 2014 [facility] [address] [id number] [address] [place] [address], [place] [address] Jul, 2014 [facility] [address] [id number] [address] [place] [address], [place] [address] Jul, 2014 [facility] [address] [id number] [address] [place] [address], [place] [address] Jul, 2014 [facility] [address] [id number] [address] [place] [address], [place] [address] Jul, 2014 [facility] [address] [id number] [address] [place] [address], [place] [address] Jul, 2014 [facility] [address] [id number] [address] [place] [address], [place] [address] Jul, 2014 [facility] [address] [id number] [address] [place] [address], [place] [address] Jul, 2014 [facility] [address] [id number] [address] [place] [address], [place] [address] Jul, 2014 [facility] [address] [id number] [address] [place] [address], [place] [address] Jul, 2014 [facility] [address] [id number] [address] [place] [address], [place] [address] Jun, [facility] [address] [id number] [address] [place] [address], [place] [address] Jun, [facility] [address] [id number] [address] [place] [address], [place] [address] Jun, [facility] [address] [id number] [address] [place] [address], [place] [address] Jun, [facility] [address] [id number] [address] [place] [address], [place] [address] Jun, [facility] [address] [id number] [address] [place] [address], [place] [address] Jun, [facility] [address] [id number] [address] [place] [address], [place] [address] Jun, [facility] [address] [id number] [address] [place] [address], [place] [address] Jun, [facility] [address] [id number] [address] [place] [address], [place] [address] Jun, [facility] [address] [id number] [address] [place] [address], [place] [address] Jun, [facility] [address] [id number] [address] [place] [address], [place] [address] Jun, [facility] [address] [id number] [address] [place] [address], [place] [address] Jun, [facility] [address] [id number] [address] [place] [address], [place] [address] Jun, [facility] [address] [id number] [address] [place] [address], [place] [address] Jun, [facility] [address] [id number] [address] [place] [address], [place] [address] May, [facility] [address] [id number] [address] [place] [address], [place] [address] May, [facility] [address] [id number] [address] [place] [address], [place] [address] May, [facility] [address] [id number] [address] [place] [address], [place] [address] May, [facility] [address] [id number] [address] [place] [address], [place] [address] Apr, [facility] [address] [id number] [address] [place] [address], [place] [address] Apr, [facility] [address] [id number] [address] [place] [address], [place] [address] Apr, [facility] [address] [id number] [address] [place] [address], [place] [address] Apr, [facility] [address] [id number] [address] [place] [address], [place] [address] Apr, [facility] [address] [id number] [address] [place] [address], [place] [address] Apr, [facility] [address] [id number] [address] [place] [address], [place] [address] Mar, [facility] [address] [id number] [address] [place] [address], [place] [address] Mar, [facility] [address] [id number] [address] [place] [address], [place] [address] Mar, [facility] [address] [id number] [address] [place] [address], [place] [address] Mar, [facility] [address] [id number] [address] [place] [address] 15 Mar, 2014 [facility] [address] [id number] [address] [place] [address], [place] [address] 15 Mar, 2014 [facility] [address] [id number] [address] [place] [address], [place] [address] Mar, [facility] [address] [id number] [address] [place] [address], [place] [address] Mar, [facility] [address] [id number] [address] [place] [address], [place] [address] 07 Mar, 2013 [facility] [address] [id number] [address] [place] [address], [place] [address] 07 Mar, 2013 [facility] [address] [id number] [address] [place] [address], [place] [address] 07 Mar, 2013 [facility] [address] [id number] [address] [place] [address], [place] [address] 07 Mar, 2013 [facility] [address] [id number] [address] [place] [address], [place] [address] 06 Mar, 2014 [facility] [address] [id number] [address] [place] [address], [place] [address] 26 Feb, 2013 [facility] [address] [id number] [address] [place] [address], [place] [address] 26 Feb, 2013 [facility] [address] [id number] [address] [place] [address], [place] [address] 23 Feb, 2013 [facility] [address] [id number] [address] [place] [address], [place] [address] 23 Feb, 2013 [facility] [address] [id number] [address] [place] [address], [place] [address] 19 Feb, 2013 [facility] [address] [id number] [address] [place] [address], [place] [address] 19 Feb, 2013 [facility] [address] [id number] [address] [place] [address], [place] [address] 13 Feb, 2013 [facility] [address] [id number] [address] [place] [address], [place] [address] 13 Feb, 2013 [facility] [address] [id number] [address] [place] [address], [place] [address] 12 Feb, 2014 [facility] [address] [id number] [address] [place] [address], [place] [address] 12 Feb, 2013 [facility] [address] [id number] [address] [place] [address], [place] [address] Jan, [facility] [address] [id number] [address] [place] [address], [place] [address] Jan, [facility] [address] [id number] [address] [place] [address], [place] [address] Dec, [facility] [address] [id number] [address] [place] [address], [place] [address] Dec, [facility] [address] [id number] [address] [place] [address], [place] [address] Dec, [facility] [address] [id number] [address] [place] [address], [place] [address] Dec, [facility] [address] [id number] [address] [place] [address], [place] [address] Dec, [facility] [address] [id number] [address] [place] [address], [place] [address] Dec, [facility] [address] [id number] [address] [place] [address], [place] [address] Nov, [facility] [address] [id number] [address] [place] [address], [place] [address] Nov, [facility] [address] [id number] [address] [place] [address], [place] [address] Nov, [facility] [address] [id number] [address] [place] [address], [place] [address] Nov, [facility] [address] [id number] [address] [place] [address], [place] [address] October, [facility] [address] [id number] [address] [place] [address], [place] [address] October, [facility] [address] [id number] [address] [place] [address], [place] [address] October, [facility] [address] [id number] [address] [place] [address], [place] [address] October, [facility] [address] [id number] [address] [place] [address], [place] [address] October, [facility] [address] [id number] [facility] [place] [address] October, [facility] [address] [id number] [address] [place] [address], [place] [address] October, [facility] [address] [id number] [address] [place] [address], [place] [address] October, [facility] [address] [id number] [address] [place] [address], [place] [address] October, [facility] [address] [id number] [address] [place] [address], [place] [address] October, [facility] [address] [id number] [address] [place] [address], [place] [address] October, [facility] [address] [id number] [address] [place] [address], [place] [address] October, [facility] [address] [id number] [address] [place] [address], [place] [address] October, [facility] [address] [id number] [address] [place] [address], [place] [address] October, [facility] [address] [id number] [address] [place] [address], [place] [address] October, [facility] [address] [id number] [address] [place] [address], [place] [address] October, [facility] [address] [id number] [address] [place] [address], [place] [address] Sep, [facility] [address] [id number] [address] [place] [address], [place] [address] Sep, [facility] [address] [id number] [address] [place] [address], [place] [address] Sep, [facility] [address] [id number] [address] [place] [address], [place] [address] Sep, [facility] [address] [id number] [address] [place] [address], [place] [address] Sep, [facility] [address] [id number] [address] [place] [address], [place] [address] Sep, [facility] [address] [id number] [address] [place] [address], [place] [address] Aug, [facility] [address] [id number] [address] [place] [address], [place] [address] Aug, [facility] [address] [id number] [address] [place] [address], [place] [address] Aug, [facility] [address] [id number] [address] [place] [address], [place] [address] Aug, [facility] [address] [id number] [address] [place] [address], [place] [address] Aug, [facility] [address] [id number] [address] [place] [address], [place] [address] Aug, [facility] [address] [id number] [address] [place] [address], [place] [address] Jul, [facility] [address] [id number] [address] [place] [address], [place] [address] Jul, [facility] [address] [id number] [address] [place] [address], [place] [address] Jul, [facility] [address] [id number] [address] [place] [address], [place] [address] Jul, [facility] [address] [id number] [address] [place] [address], [place] [address] Jun, [facility] [address] [id number] [address] [place] [address], [place] [address] Jun, [facility] [address] [id number] [address] [place] [address], [place] [address] May, [facility] [address] [id number] [address] [place] [address], [place] [address] May, [facility] [address] [id number] [address] [place] [address], [place] [address] May, [facility] [address] [id number] [address] [place] [address] May, [facility] [address] [id number] [address] [place] [address] May, [facility] [address] [id number] [address] [place] [address] Apr, [facility] [address] [id number] [address] [place] [address], [place] [address] Apr, [facility] [address] [id number] [address] [place] [address] Apr, [facility] [address] [id number] [address] [place] [address], [place] [address] Apr, [facility] [address] [id number] [address] [place] [address] Apr, [facility] [address] [id number] [address] [place] [address] 04 Apr, 2013 [facility] [address] [id number] [address] [place] [address] 15 Mar, 2013 [facility] [address] [id number] [address] [place] [address] 15 Mar, 2013 [facility] [address] [id number] [address] [place] [id number] 14 Mar, 2013 [facility] [address] [id number] [address] [place] [address] 14 Mar, 2013 [facility] [address] [id number] [address] [place] [address] 11 Mar, 2013 [facility] [address] [id number] [address] [place] [id number] 11 Mar, 2013 [facility] [address] [id number] [address] [place] [address], [place] [address] Feb, [facility] [address] [id number] [address] [place] [address], [place] [address] Feb, [facility] [address] [id number] [address] [place] [address], [place] [address] Feb, [facility] [address] [id number] [address] [place] [address], [place] [address] Jan, [facility] [address] [id number] [address] [place] [address], [place] [address] Jan, [facility] [address] [id number] [address] [place] [address], [place] [address] Jan, [facility] [address] [id number] [address] [place] [address], [place] [address] Jan, [facility] [address] [id number] [address] [place] [address], [place] [address] Jan, [facility] [address] [id number] [address] [place] [address], [place] [address] Jan, [facility] [address] [id number] [address] [place] [address], [place] [address] Dec, [facility] [address] [id number] [address] [place] [address], [place] [address] Dec, [facility] [address] [id number] [address] [place] [address], [place] [address] Dec, [facility] [address] [id number] [address] [place] [address], [place] [address] Dec, [facility] [address] [id number] [address] [place] [address], [place] [address] Dec, [facility] [address] [id number] [address] [place] [address], [place] [address] Dec, [facility] [address] [id number] [address] [place] [address], [place] [address] Nov, [facility] [address] [id number] [address] [place] [address], [place] [address] 19 Nov, 2012 [facility] [address] [id number] [address] [place] [address], [place] [address] 18 Nov, 2012 [facility] [address] [id number] [address] [place] [address], [place] [address] 13 Nov, 2012 [facility] [address] [id number] [address] [place] [address], [place] [address] Nov, [facility] [address] [id number] [address] [place] [address], [place] [address] Nov, [facility] [address] [id number] [address] [place] [address], [place] [address] October, [facility] [address] [id number] [address] [place] [address], [place] [address] October, [facility] [address] [id number] [address] [place] [address], [place] [address] October, [facility] [address] [id number] [address] [place] [address], [place] [address] October, [facility] [address] [id number] [address] [place] [address], [place] [address] October, [facility] [address] [id number] [address] [place] [address], [place] [address] 30 Sep, 2012 [facility] [address] [id number] [address] [place] [address], [place] [address] Sep, [facility] [address] [id number] [address] [place] [address], [place] [address] Sep, [facility] [address] [id number] [address] [place] [address], [place] [address] 18 Sep, 2012 [facility] [address] [id number] [address] [place] [address], [place] [address] Sep, [facility] [address] [id number] [address] [place] [address], [place] [address] Aug, [facility] [address] [id number] [address] [place] [address], [place] [address] Aug, [facility] [address] [id number] [address] [place] [address], [place] [address] Aug, [facility] [address] [id number] [address] [place] [address], [place] [address] Jul, [facility] [address] [id number] [address] [place] [address], [place] [address] 20 Jul, 2012 [facility] [address] [id number] [address] [place] [address], [place] [address] Jul, [facility] [address] [id number] [address] [place] [address], [place] [address] 08 Jul, 2012 [facility] [address] [id number] [address] [place] [address], [place] [address] 06 Jul, 2012 [facility] [address] [id number] [address] [place] [address], [place] [address] 05 Jul, 2012 [facility] [address] [id number] [address] [place] [address], [place] [address] 15 Jun, 2012 [facility] [address] [id number] [address] [place] [address], [place] [address] 16 Apr, 2012 [facility] [address] [id number] [address] [place] [address], [place] [address] 16 Apr, 2012 [facility] [address] [id number] [address] [place] [id number] Apr, [facility] [address] [id number] [address] [place] [id number] Apr, [facility] [address] [id number] [address] [place] [address], [place] [address] Mar, [facility] [address] [id number] [address] [place] [id number] Mar, [facility] [address] [id number] [address] [place] [address], [place] [address] Mar, [facility] [address] [id number] [address] [place] [address], [place] [address] Mar, [facility] [address] [id number] [address] [place] [address], [place] [address] Mar, [facility] [address] [id number] [address] [place] [address], [place] [address] Feb, [facility] [address] [id number] [address] [place] [address], [place] [address] Jan, [facility] [address] [id number] [address] [place] [address], [place] [address] Jan, [facility] [address] [id number] [address] [place] [address], [place] [address] Jan, [facility] [address] [id number] [address] [place] [address], [place] [address] Dec, [facility] [address] [id number] [address] [place] [address], [place] [address] Nov, [facility] [address] [id number] [address] [place] [address], [place] [address] Nov, [facility] [address] [id number] [address] [place] [address], [place] [address] Nov, [facility] [address] [id number] [address] [place] [address], [place] [address] Nov, [facility] [address] [id number] [address] [place] [address], [place] [address] Nov, [facility] [address] [id number] [address] [place] [address], [place] [address] October, [facility] [address] [id number] [address] [place] [address], [place] [address] October, [facility] [address] [id number] [address] [place] [address], [place] [address] October, [facility] [address] [facility] [id number] [address] [place] [id number] October, [facility] [address] [facility] [id number] [address] [place] [id number] October, IMMUNIZATIONS No Known Immunizations SOCIAL HISTORY [...]
--- OUTSIDE RECORDS SUMMARY | 2020-01-25 07:58 | XMS REPORT ---
Author Author Velma CORDERO Organization [facility] Address [address] [place] [address] Care Team Providers Care Bleach Analyst Name Role Phone STEPHAN CORDERO Unavailable PROBLEMS Type Condition ICD9-CM Code QRA64-EO Code Onset Dates Condition S tatus SNOMED Code Problem Hyperparathyroidism E21.3 Active 17573856 Problem Mood disorder F39 Active 998400 05 Problem Arthritis M19.90 Active 5738536 Problem Primary insomnia F51.01 Active 397 2004 Problem Myalgia M79.1 Active 71375593 Problem Hypercholesteremia E78.0 Active 1 3431917 Problem Primary osteoarthritis of left knee M17.12 Active [id number] Problem Chronic kidney disease, stage 4 (severe) N18.4 Active 526516541 Problem 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 Active 89012666 Problem Corns L84 Active 081203225 Problem BPV (benign positional vertigo), bilateral H81.13 Active 948156778 Problem 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 Active 92539474 ALLERGIES No Information ENCOUNTERS Encounter Location Date Diagnosis [place] [id number] [facility] [id number] [address] [place] [phone] May, [facility] [address] [facility] [id number] [address] [place] [phone] May, Labyrinthitis of left ear H8 3.02 [facility] [address] [facility] [id number] [address] [place] [phone] May, Exercise counseling Z71.82 [facility] [address] [facility] [id number] [address] [place] [phone] Apr, Arthritis M19.90 [facility] [address] [facility] [id number] [address] [place] [phone] Apr, Exercise counseling Z71.82 [place] [address] [place] [id number] [address] [place] [phone] Apr, Exercise counseling Z71.82 [place] [address] [place] [id number] [address] [place] [phone] Apr, Primary osteoarthritis of le ft knee M17.12 [place] [address] [place] [id number] [address] [place] [phone] Apr, Labyrinthitis of left ear H8 3.02 [place] [address] [place] [id number] [address] [place] [phone] Mar, Arthritis M19.90 [place] [address] [address] Mar, [place] [address] [address] Mar, Chronic kidney disease, stag e 4 (severe) N18.4 [place] [address] [address] Mar, Chronic kidney disease, stag e 4 (severe) N18.4 [place] [address] [place] [id number] [address] [place] [phone] Mar, Labyrinthitis of left ear H8 3.02 [place] [address] [address] Mar, Chronic kidney disease, stag e 4 (severe) N18.4 ; Knee pain, left anterior M25.562 ; 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 and Encounter for immunization Z23 [place] [address] [place] [id number] [address] [place] [phone] Mar, Arthritis M19.90 [place] [address] [place] [id number] [address] [place] [phone] Feb, Labyrinthitis of left ear H8 3.02 [place] [address] [place] [address] Feb, Arthritis M19.90 [facility] [address] [place] [id number] [place] [phone] Jan, Labyrinthitis of left ear H8 3.02 [facility] [address] [place] [id number] [place] [phone] Jan, Arthritis M19.90 [facility] [address] [place] [id number] [place] [phone] Dec, Labyrinthitis of left ear H8 3.02 [place] [address] [address] Nov, Arthritis M19.90 [place] [address] [place] [id number] [place] [phone] Nov, Labyrinthitis of left ear H8 3.02 [place] [address] [address] Nov, BMI 40.0-44.9, adult Z68.41 ; Chronic kidney disease, stage 4 (severe) N18.4 and Acute right-sided thoracic back pain M54.6 [place] [address] [place] [id number] [place] [phone] October, Labyrinthitis of left ear H8 3.02 and Arthritis M19.90 [place] [address] [place] [id number] [place] [address] Sep, BPV (benign positional verti go), bilateral H81.13 ; Dysfunction of left eustachian tube H69.82 and BMI 40.0-44.9, adult Z68.41 [place] [address] [place] [id number] [place] [address] Sep, Labyrinthitis of left ear H8 3.02 and Arthritis M19.90 [place] [address] [place] [id number] [address] [place] [phone] Sep, [facility] [address] [facility] [place] [id number] [address] [place] [phone] Sep, [facility] [address] [facility] [id number] [address] [place] [phone] Sep, Chronic kidney disease, stag e 4 (severe) N18.4 [facility] [address] [place] [id number] [address] [place] [phone] Sep, Chronic kidney disease, stag e 4 (severe) N18.4 [facility] [address] [facility] [id number] [address] [place] [phone] Aug, Labyrinthitis of left ear H8 3.02 and Arthritis M19.90 [facility] [address] [place] [id number] [address] [place] [phone] Aug, [facility] [address] [place] [id number] [address] [place] [phone] Jul, [facility] [address] [place] [id number] [address] [place] [phone] Jul, Arthritis M19.90 and Labyrin thitis of left ear H83.02 [facility] [address] [place] [id number] [address] [place] [phone] Jul, [place] [id number] [place] [phone] Jun, [facility] [address] [place] [id number] [address] [place] [phone] Jun, Arthritis M19.90 and Labyrin thitis of left ear H83.02 [place] [address] [place] [id number] [place] [address] Jun, Pre-op evaluation Z01.818 ; BMI 40.0-44.9, adult Z68.41 and Encounter for immunization Z23 [facility] [address] [place] [id number] [address] [place] [phone] May, Arthritis M19.90 and Labyrin thitis of left ear H83.02 [facility] [address] [place] [id number] [address] [place] [phone] Apr, Labyrinthitis of left ear H8 3.02 [facility] [address] [place] [id number] [address] [place] [phone] Apr, Arthritis M19.90 and Labyrin thitis of left ear H83.02 [facility] [address] [place] [id number] [address] [place] [phone] Mar, Arthritis M19.90 and Labyrin thitis of left ear H83.02 [place] [address] [place] [id number] [place] [phone] Mar, Chronic kidney disease, stag e 4 (severe) N18.4 [place] [address] [place] [id number] [place] [address] Feb, Arthritis M19.90 and Labyrin thitis of left ear H83.02 [place] [address] [place] [id number] [address] [place] [phone] Jan, Labyrinthitis of left ear H8 3.02 and 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 [place] [address] [place] [id number] [address] [place] [phone] Dec, Arthritis M19.90 [facility] [address] [place] [id number] [address] [place] [phone] Dec, BPV (benign positional verti go), bilateral H81.13 [place] [address] [place] [id number] [address] [place] [phone] Dec, [facility] [address] [place] [id number] [address] [place] [phone] Dec, [place] [address] [place] [id number] [address] [place] [phone] Dec, [facility] [address] [facility] [id number] [address] [place] [phone] Nov, Arthritis M19.90 and Deficie ncy of other specified B group vitamins E53.8 [facility] [address] [facility] [id number] [address] [place] [phone] Nov, Arthritis M19.90 [facility] [address] [facility] [id number] [address] [place] [phone] Nov, Hyperparathyroidism E21.3 [facility] [address] [facility] [id number] [address] [place] [phone] October, [facility] [address] [facility] [id number] [address] [place] [phone] October, Hyperparathyroidism E21.3 [facility] [address] [facility] [id number] [address] [place] [phone] October, [facility] [address] [facility] [id number] [address] [place] [phone] October, Renal insufficiency N28.9 an d Hyperparathyroidism E21.3 [facility] [address] [facility] [id number] [address] [place] [phone] October, [facility] [address] [facility] [id number] [address] [place] [phone] October, Renal insufficiency N28.9 an d Hyperparathyroidism E21.3 [facility] [address] [facility] [id number] [address] [place] [phone] October, Arthritis M19.90 [facility] [address] [facility] [id number] [address] [place] [phone] Sep, [facility] [address] [facility] [id number] [address] [place] [phone] Sep, Lumbar neuritis M54.16 ; Tho racic abscess J86.9 and Deficiency of other specified B group vitamins E53.8 [facility] [address] [facility] [id number] [address] [place] [phone] Sep, [facility] [address] [facility] [id number] [address] [place] [id number] Aug, Arthritis M19.90 [facility] [address] [facility] [id number] [address] [place] [phone] Aug, Hyperparathyroidism E21.3 [facility] [address] [facility] [id number] [address] [place] [phone] Aug, Hyperparathyroidism E21.3 [facility] [address] [facility] [id number] [address] [place] [phone] Aug, Arthritis M19.90 [facility] [address] [facility] [id number] [address] [place] [phone] Jul, Mass of throat R22.1 [facility] [address] [place] [id number] [address] [place] [phone] 16 Jul, 2016 [facility] [address] [place] [id number] [address] [place] [phone] Jul, Arthritis M19.90 [facility] [address] [place] [id number] [address] [place] [phone] Jun, Arthritis M19.90 [facility] [address] [facility] [id number] [address] [place] [phone] Jun, [facility] [address] [place] [id number] [address] [place] [phone] Jun, Renal insufficiency N28.9 an d 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 [facility] [address] [facility] [id number] [address] [place] [phone] 05 Jun, 2016 Medicare welcome exam Z00.00 ; Encounter for immunization Z23 ; Arthritis M19.90 ; Medicare annual wellness visit, initial Z00.00 ; Medicare annual wellness visit, subsequent Z00.00 and 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 [facility] [address] [facility] [id number] [address] [place] [phone] May, Renal insufficiency N28.9 an d 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 [facility] [address] [facility] [id number] [address] [place] [phone] May, Renal insufficiency N28.9 [facility] [address] [facility] [id number] [address] [place] [phone] 16 May, 2016 Renal insufficiency N28.9 [facility] [address] [facility] [id number] [address] [place] [phone] 14 May, 2016 [facility] [address] [facility] [id number] [address] [place] [phone] Apr, [facility] [address] [facility] [id number] [address] [place] [phone] 16 Apr, 2016 [facility] [address] [facility] [id number] [address] [place] [phone] 14 Apr, 2016 Mass of throat R22.1 [facility] [address] [facility] [id number] [address] [place] [phone] Apr, [facility] [address] [facility] [id number] [address] [place] [phone] 10 Apr, 2016 Mass of throat R22.1 [facility] [address] [facility] [id number] [address] [place] [phone] 04 Apr, 2016 Mass of throat R22.1 [facility] [address] [facility] [id number] [address] [place] [phone] Mar, [facility] [address] [facility] [id number] [address] [place] [phone] Mar, [facility] [address] [facility] [id number] [address] [place] [phone] Mar, [facility] [address] [place] [id number] [address] [place] [phone] 24 Mar, 2016 Parathyroid abnormality E21. 5 and Encounter for immunization Z23 [facility] [address] [facility] [id number] [address] [place] [phone] Mar, [facility] [address] [id number] [address] [place] [phone] Mar, [facility] [address] [id number] [address] [place] [phone] 21 Feb, 2016 Renal insufficiency N28.9 an d Hyperparathyroidism E21.3 [facility] [address] [id number] [address] [place] [phone] 19 Feb, 2016 [facility] [address] [id number] [address] [place] [phone] 15 Feb, 2016 Renal insufficiency N28.9 an d Hyperparathyroidism E21.3 [facility] [address] [id number] [address] [place] [phone] 14 Feb, 2016 [facility] [address] [id number] [address] [place] [phone] Feb, [facility] [address] [facility] [id number] [address] [place] [phone] 09 Feb, 2016 [facility] [address] [id number] [address] [place] [phone] Jan, [facility] [address] [facility] [id number] [address] [place] [phone] Jan, Arthritis M19.90 ; Lumbago w ith sciatica, right side M54.41 and Other chronic pain G89.29 [facility] [address] [id number] [address] [place] [phone] Jan, [facility] [address] [id number] [address] [place] [phone] Dec, Arthritis M19.90 ; Lumbago w ith sciatica, right side M54.41 and Other chronic pain G89.29 [facility] [address] [id number] [address] [place] [id number] Nov, Deficiency of other specifie d B group vitamins E53.8 ; Primary insomnia F51.01 ; Mood disorder F39 and Lumbago with sciatica, right side M54.41 [facility] [id number] [place] [phone] Nov, Hyperparathyroidism E21.3 [facility] [address] [place] [id number] [address] [place] [phone] Nov, Unspecified kidney failure N 19 and Hyperparathyroidism E21.3 [facility] [address] [address] October, Hyperparathyroidism E21.3 [facility] [address] [place] [id number] [place] [phone] October, [facility] [address] [phone] October, Hyperparathyroidism E21.3 [facility] [address] [address] October, Hyperparathyroidism E21.3 [facility] [address] [address] Sep, Hyperparathyroidism E21.3 ; Hypercholesterolemia E78.0 and Arthritis M19.90 [place] [address] [address] Aug, [place] [address] [address] Aug, Deficiency of other specifie d B group vitamins E53.8 [facility] [address] [place] [id number] [address] [place] [phone] Aug, [facility] [address] [address] Jul, Urinary frequency R35.0 [facility] [address] [place] [id number] [place] [phone] Jul, Urinary frequency R35.0 [facility] [address] [id number] Jul, [facility] [address] [id number] [address] [place] [phone] Jul, [facility] [address] [id number] [address] [place] [phone] Jun, Pain in left knee M25.562 [facility] [address] [id number] [address] [place] [phone] Jun, [facility] [address] [id number] [address] [place] [phone] May, Swelling of left knee joint M25.462 [facility] [address] [id number] [address] [place] [phone] May, [facility] [address] [id number] [address] [place] [phone] May, [facility] [address] [facility] [id number] [address] [place] [phone] May, [facility] [address] [facility] [id number] [address] [place] [phone] Apr, Renal insufficiency N28.9 an d Chronic kidney disease, stage 4 (severe) N18.4 [facility] [address] [facility] [id number] [address] [place] [phone] Apr, Unspecified kidney failure N 19 [facility] [address] [id number] [address] [place] [phone] Apr, Unspecified kidney failure N 19 [facility] [address] [id number] [address] [place] [phone] Apr, [facility] [address] [facility] [id number] [address] [place] [phone] Apr, Hyperparathyroidism, unspeci fied 252.00 [facility] [address] [facility] [id number] [address] [place] [phone] Apr, [facility] [address] [id number] [address] [place] [phone] Mar, [facility] [address] [id number] [address] [place] [phone] Mar, [facility] [address] [facility] [id number] [address] [place] [id number] Mar, Hyperparathyroidism, unspeci fied 252.00 [facility] [address] [id number] [address] [place] [phone] Feb, [facility] [address] [id number] [address] [place] [phone] Feb, Otalgia 388.70 [facility] [address] [facility] [id number] [address] [place] [phone] Feb, [facility] [address] [facility] [id number] [address] [place] [phone] Feb, [facility] [address] [id number] [address] [place] [phone] Jan, [facility] [address] [id number] [address] [place] [id number] Jan, Hyperparathyroidism, unspeci fied 252.00 [facility] [address] [facility] [id number] [address] [place] [id number] Jan, [facility] [address] [facility] [id number] [address] [place] [phone] Jan, Other B-complex deficiencies 266.2 and Hyperparathyroidism, unspecified 252.00 [facility] [address] [id number] [address] [place] [phone] Jan, [facility] [address] [facility] [id number] [address] [place] [phone] Jan, [facility] [address] [facility] [id number] [address] [place] [phone] Jan, [facility] [address] [facility] [id number] [address] [place] [phone] Dec, [facility] [address] [id number] [address] [place] [phone] Dec, [facility] [address] [id number] [address] [place] [phone] Dec, [facility] [address] [id number] [address] [place] [phone] Nov, Routine check-up V70.0 and P re-op exam V72.84 [facility] [address] [id number] [address] [place] [address], [place] [id number] Nov, [facility] [address] [id number] [address] [place] [id number] Nov, [facility] [address] [id number] [address] [place] [id number] October, [facility] [address] [id number] [address] [place] [id number] October, Other B-complex deficiencies 266.2 [facility] [address] [id number] [address] [place] [address], [place] [id number] October, [facility] [address] [id number] [address] [place] [id number] Sep, [facility] [address] [id number] [address] [place] [phone] Sep, [facility] [address] [id number] [address] [place] [phone] Aug, [facility] [address] [id number] [address] [place] [phone] Aug, [facility] [address] [id number] [address] [place] [phone] Aug, [facility] [address] [id number] [address] [place] [phone] Aug, [facility] [address] [id number] [address] [place] [phone] Aug, 2014 [facility] [address] [id number] [address] [place] [address], [place] [id number] Aug, 2014 [facility] [address] [id number] [address] [place] [address], [place] [id number] Jul, 2014 [facility] [address] [id number] [address] [place] [address], [place] [id number] Jul, 2014 [facility] [address] [address] [id number] [address] [place] [address], [place] [address] Jul, 2014 [facility] [address] [id number] [address] [place] [address], [place] [address] Jul, 2014 [facility] [address] [id number] [address] [place] [address], [place] [address] Jul, 2014 [facility] [address] [id number] [address] [place] [address], [place] [address] Jul, 2014 [facility] [place] [address] [id number] [address] [place] [address], [place] [address] Jul, 2014 [facility] [address] [id number] [address] [place] [address], [place] [address] Jul, 2014 [facility] [place] [facility] [address] [id number] [address] [place] [address], [place] [address] Jul, 2014 [facility] [place] [address] [id number] [address] [place] [address], [place] [address] Jul, 2014 [facility] [place] [address] [id number] [address] [place] [address], [place] [address] Jul, 2014 [facility] [place] [address] [id number] [address] [place] [address], [place] [address] Jul, 2014 [facility] [place] [facility] [address] [id number] [address] [place] [address] Jul, 2014 [facility] [place] [address] [id number] [address] [place] [address], [place] [address] Jul, [facility] [address] [id number] [address] [place] [address], [place] [address] Jun, [facility] [address] [id number] [address] [place] [address], [place] [address] Jun, [facility] [address] [id number] [address] [place] [address], [place] [address] Jun, [facility] [address] [id number] [address] [place] [address], [place] [address] Jun, [facility] [address] [id number] [address] [place] [address], [place] [address] Jun, [facility] [address] [id number] [address] [place] [address], [place] [address] Jun, [facility] [address] [id number] [address] [place] [address], [place] [address] Jun, [facility] [address] [id number] [address] [place] [address], [place] [address] Jun, [facility] [address] [id number] [address] [place] [address], [place] [address] Jun, [facility] [address] [id number] [address] [place] [address], [place] [address] Jun, [facility] [address] [id number] [address] [place] [address], [place] [address] Jun, [facility] [address] [id number] [address] [place] [address], [place] [address] Jun, [facility] [address] [id number] [address] [place] [address], [place] [address] Jun, [facility] [address] [id number] [address] [place] [address], [place] [address] Jun, [facility] [address] [id number] [address] [place] [address], [place] [address] May, [facility] [address] [id number] [address] [place] [address] [place] [id number] 15 May, 2014 [facility] [address] [id number] [address] [place] [address], [place] [address] May, [facility] [address] [id number] [address] [place] [address], [place] [address] May, [facility] [address] [id number] [address] [place] [address], [place] [address] Apr, [facility] [address] [id number] [address] [place] [address], [place] [address] Apr, [facility] [address] [id number] [address] [place] [address], [place] [address] Apr, [facility] [address] [id number] [address] [place] [address], [place] [address] Apr, [facility] [address] [id number] [address] [place] [address], [place] [address] Apr, [facility] [place] [address] [id number] [address] [place] [address], [place] [address] Apr, [facility] [place] [facility] [address] [id number] [address] [place] [address], [place] [address] Mar, [facility] [place] [address] [id number] [address] [place] [address], [place] [address] Mar, [facility] [place] [address] [id number] [address] [place] [address], [place] [address] Mar, [facility] [address] [id number] [address] [place] [address], [place] [address] Mar, [facility] [place] [address] [id number] [address] [place] [address], [place] [address] Mar, [facility] [address] [id number] [address] [place] [address], [place] [address] Mar, [facility] [place] [address] [id number] [address] [place] [address], [place] [address] Mar, [facility] [place] [address] [id number] [address] [place] [address], [place] [address] 13 Mar, 2013 [facility] [place] [address] [id number] [address] [place] [address], [place] [address] 07 Mar, 2013 [facility] [place] [address] [id number] [address] [place] [address], [place] [address] 07 Mar, 2013 [facility] [address] [id number] [address] [place] [address], [place] [address] Mar, 2013 [facility] [place] [address] [id number] [address] [place] [address], [place] [address] 07 Mar, 2013 [facility] [address] [id number] [address] [place] [address], [place] [address] 06 Mar, 2013 [facility] [place] [address] [id number] [address] [place] [address], [place] [address] 26 Feb, 2013 [facility] [place] [address] [id number] [address] [place] [address], [place] [address] 26 Feb, 2013 [facility] [place] [address] [id number] [address] [place] [address], [place] [address] 23 Feb, 2013 [facility] [place] [address] [id number] [address] [place] [address], [place] [id number] 23 Feb, 2013 [facility] [place] [address] [id number] [address] [place] [address], [place] [address] 19 Feb, 2013 [facility] [address] [id number] [address] [place] [address], [place] [address] 19 Sep, 2013 [facility] [address] [id number] [address] [place] [address], [place] [address] 13 Sep, 2013 [facility] [address] [id number] [address] [place] [address], [place] [address] 13 Sep, 2013 [facility] [place] [address] [id number] [address] [place] [address], [place] [address] 12 Sep, 2013 [facility] [address] [id number] [address] [place] [address], [place] [address] Feb, [facility] [address] [id number] [facility] [place] [address] Jan, [facility] [place] [address] [id number] [address] [place] [address], [place] [address] Jan, [facility] [address] [id number] [address] [place] [address], [place] [address] Dec, [facility] [address] [id number] [address] [place] [address], [place] [address] Dec, [facility] [address] [id number] [address] [place] [address], [place] [address] Dec, [facility] [address] [id number] [address] [place] [address], [place] [address] Dec, [facility] [address] [id number] [address] [place] [address], [place] [address] Dec, [facility] [address] [id number] [address] [place] [address], [place] [address] Dec, [facility] [address] [id number] [address] [place] [address], [place] [address] Nov, [facility] [place] [facility] [address] [id number] [address] [place] [address], [place] [address] Nov, [facility] [place] [facility] [address] [id number] [address] [place] [address], [place] [address] Nov, [facility] [address] [id number] [address] [place] [address], [place] [address] Nov, [facility] [address] [id number] [address] [place] [address], [place] [address] October, [facility] [address] [id number] [address] [place] [address], [place] [address] October, [facility] [place] [facility] [address] [id number] [address] [place] [address], [place] [address] October, [facility] [place] [address] [id number] [address] [place] [address] October, [facility] [address] [id number] [address] [place] [address], [place] [address] October, [facility] [address] [id number] [address] [place] [address], [place] [address] October, [facility] [address] [id number] [address] [place] [address], [place] [address] October, [facility] [address] [id number] [address] [place] [address], [place] [address] October, [facility] [address] [id number] [address] [place] [address], [place] [address] October, [facility] [address] [id number] [address] [place] [address], [place] [address] October, [facility] [address] [id number] [address] [place] [address], [place] [address] October, [facility] [address] [id number] [address] [place] [address], [place] [address] October, [facility] [address] [id number] [address] [place] [address], [place] [address] October, [facility] [address] [id number] [address] [place] [address], [place] [address] October, [facility] [address] [id number] [address] [place] [address], [place] [address] October, [facility] [address] [id number] [address] [place] [address], [place] [address] October, [facility] [address] [id number] [address] [place] [address], [place] [address] Sep, [facility] [address] [id number] [address] [place] [address], [place] [address] Sep, [facility] [address] [id number] [address] [place] [address], [place] [address] Sep, [facility] [address] [id number] [facility] [place] [address] 14 Sep, 2013 [facility] [address] [id number] [address] [place] [address], [place] [address] Sep, [facility] [address] [id number] [address] [place] [address], [place] [address] Sep, [facility] [address] [id number] [address] [place] [address], [place] [address] Aug, [facility] [address] [id number] [address] [place] [address], [place] [address] Aug, [facility] [address] [id number] [address] [place] [address], [place] [address] Aug, [facility] [address] [id number] [address] [place] [address], [place] [address] Aug, [facility] [address] [id number] [address] [place] [address], [place] [address] Aug, [facility] [address] [id number] [address] [place] [address], [place] [address] Aug, [facility] [address] [id number] [address] [place] [address], [place] [address] Jul, [facility] [address] [id number] [address] [place] [address], [place] [address] Jul, [facility] [address] [id number] [address] [place] [address], [place] [address] Jul, [facility] [address] [id number] [address] [place] [address], [place] [address] Jul, [facility] [address] [id number] [address] [place] [address], [place] [address] Jun, [facility] [address] [id number] [address] [place] [address], [place] [address] Jun, [facility] [address] [id number] [address] [place] [address] 11 May, 2013 [facility] [address] [id number] [address] [place] [address], [place] [address] 11 May, 2013 [facility] [address] [id number] [address] [place] [address] 10 May, 2013 [facility] [address] [id number] [address] [place] [address], [place] [address] May, [facility] [address] [id number] [address] [place] [address], [place] [address] 09 May, 2013 [facility] [address] [id number] [address] [place] [address], [place] [address] Apr, [facility] [address] [id number] [address] [place] [address], [place] [address] Apr, [facility] [address] [id number] [address] [place] [address] Apr, [facility] [address] [id number] [address] [place] [address] Apr, [facility] [address] [id number] [address] [place] [address], [place] [address] 04 Apr, 2013 [facility] [address] [id number] [address] [place] [address] 04 Apr, 2013 [facility] [address] [id number] [address] [place] [address], [place] [address] 15 Mar, 2013 [facility] [address] [id number] [address] [place] [address] 15 Mar, 2013 [facility] [address] [id number] [address] [place] [address] 14 Mar, 2013 [facility] [address] [id number] [address] [place] [address] 14 Mar, 2013 [facility] [address] [id number] [address] [place] [id number] 11 Mar, 2013 [facility] [address] [id number] [address] [place] [address], [place] [address] Mar, [facility] [address] [id number] [address] [place] [address], [place] [address] Feb, [facility] [address] [id number] [address] [place] [address], [place] [address] Feb, [facility] [address] [id number] [address] [place] [address], [place] [address] Feb, [facility] [address] [id number] [address] [place] [address], [place] [address] Jan, [facility] [address] [id number] [address] [place] [address], [place] [address] Jan, [facility] [address] [id number] [address] [place] [address], [place] [address] Jan, [facility] [address] [id number] [address] [place] [address], [place] [address] Jan, [facility] [address] [id number] [address] [place] [address], [place] [address] Jan, [facility] [address] [id number] [address] [place] [address], [place] [address] Jan, [facility] [address] [id number] [address] [place] [address], [place] [address] Dec, [facility] [address] [id number] [address] [place] [address], [place] [address] Dec, [facility] [address] [id number] [address] [place] [address], [place] [address] Dec, [facility] [address] [id number] [address] [place] [address], [place] [address] Dec, [facility] [address] [id number] [address] [place] [address], [place] [address] Dec, [facility] [address] [id number] [address] [place] [address], [place] [address] Dec, [facility] [address] [id number] [address] [place] [address], [place] [address] 26 Nov, 2012 [facility] [address] [id number] [address] [place] [address], [place] [address] Nov, [facility] [address] [id number] [address] [place] [address], [place] [address] 18 Nov, 2012 [facility] [address] [id number] [address] [place] [address], [place] [address] 13 Nov, 2012 [facility] [address] [id number] [address] [place] [address], [place] [address] Nov, [facility] [address] [id number] [address] [place] [address], [place] [address] Nov, [facility] [address] [id number] [address] [place] [address], [place] [address] October, [facility] [address] [id number] [address] [place] [address], [place] [address] October, [facility] [address] [id number] [address] [place] [address], [place] [address] October, [facility] [address] [id number] [address] [place] [address], [place] [address] October, [facility] [address] [id number] [address] [place] [address], [place] [address] October, [facility] [address] [id number] [address] [place] [address], [place] [address] 30 Sep, 2012 [facility] [address] [id number] [address] [place] [address], [place] [address] Sep, [facility] [address] [id number] [address] [place] [address], [place] [address] Sep, [facility] [address] [id number] [address] [place] [address], [place] [address] 18 Sep, 2012 [facility] [address] [id number] [address] [place] [address], [place] [address] 09 Sep, 2012 [facility] [address] [id number] [address] [place] [address], [place] [id number] 26 Aug, 2012 [facility] [address] [id number] [address] [place] [address], [place] [address] 07 Aug, 2012 [facility] [address] [id number] [address] [place] [address], [place] [id number] 04 Aug, 2012 [facility] [address] [id number] [address] [place] [address], [place] [address] Jul, [facility] [address] [id number] [address] [place] [address], [place] [address] 20 Jul, 2012 [facility] [address] [id number] [address] [place] [address], [place] [address] 11 Jul, 2012 [facility] [address] [id number] [address] [place] [address], [place] [id number] 08 Jul, 2012 [facility] [address] [id number] [address] [place] [address], [place] [address] 06 Jul, 2012 [facility] [address] [id number] [address] [place] [address], [place] [id number] 05 Jul, 2012 [facility] [address] [id number] [address] [place] [address], [place] [id number] 15 Jun, 2012 [facility] [address] [id number] [address] [place] [address], [place] [id number] 16 Apr, 2012 [facility] [address] [id number] [address] [place] [address], [place] [id number] 16 Apr, 2012 [facility] [address] [id number] [address] [place] [address], [place] [id number] Apr, [facility] [address] [id number] [address] [place] [address], [place] [id number] Apr, [facility] [address] [id number] [address] [place] [address], [place] [id number] Mar, [facility] [address] [id number] [address] [place] [address], [place] [id number] Mar, [facility] [address] [id number] [address] [place] [address], [place] [id number] Mar, [facility] [address] [id number] [address] [place] [address], [place] [id number] Mar, [facility] [address] [id number] [address] [place] [address], [place] [id number] Mar, [facility] [address] [id number] [address] [place] [address], [place] [id number] Feb, [facility] [address] [id number] [address] [place] [address], [place] [id number] Jan, [facility] [address] [id number] [address] [place] [address], [place] [id number] Jan, [facility] [address] [id number] [address] [place] [address], [place] [id number] Jan, [facility] [address] [id number] [address] [place] [address], [place] [id number] Dec, [facility] [address] [id number] [address] [place] [address], [place] [id number] Nov, [facility] [address] [id number] [address] [place] [address], [place] [id number] Nov, [facility] [address] [id number] [address] [place] [id number] Nov, [facility] [address] [id number] [address] [place] [address], [place] [id number] Nov, [facility] [address] [id number] [address] [place] [id number] Nov, [facility] [address] [id number] [address] [place] [address], [place] [id number] October, [facility] [address] [id number] [address] [place] [id number] October, [facility] [address] [facility] [id number] [address] [place] [id number] October, [facility] [address] [facility] [id number] [address] [place] [id number] October, [facility] [address] [facility] [id number] [address] [place] [id number] October, IMMUNIZATIONS No Known Immunizations SOCIAL HISTORY Never Assessed REASON FOR VISIT Controlled Med Refill PLAN OF CARE VITAL SIGNS MEDICATIONS Medication Instructions Dosage Frequency Start Date End Date Duration S tatus Zolpidem Tartrate 10 mg Orally Once a [...]
--- OUTSIDE RECORDS SUMMARY | 2020-01-25 07:59 | XMS REPORT ---
Author Author Velma CORDERO Organization [facility] Address [address] [place] [address] Care Team Providers Care Assistant [employer] Manager Name Role Phone STEPHAN CORDERO Unavailable PROBLEMS Type Condition ICD9-CM Code BAC39-MP Code Onset Dates Condition S tatus SNOMED Code Problem Hyperparathyroidism E21.3 Active 59149692 Problem Mood disorder F39 Active 196381 05 Problem Arthritis M19.90 Active 0177823 Problem Primary insomnia F51.01 Active 397 2004 Problem Myalgia M79.1 Active 60338215 Problem Hypercholesteremia E78.0 Active 1 3057386 Problem Primary osteoarthritis of left knee M17.12 Active [id number] Problem Chronic kidney disease, stage 4 (severe) N18.4 Active 331737524 Problem 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 Active 48212332 Problem Corns L84 Active 012135137 Problem BPV (benign positional vertigo), bilateral H81.13 Active 352359232 Problem 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 Active [id number] ALLERGIES No Information ENCOUNTERS Encounter Location Date Diagnosis [place] [address] [address] [facility] [id number] [address] [place] [phone] Apr, Primary osteoarthritis of le ft knee M17.12 [facility] [address] [facility] [id number] [address] [place] [phone] Apr, Labyrinthitis of left ear H8 3.02 [facility] [address] [facility] [id number] [address] [place] [phone] 30 Mar, 2018 Arthritis M19.90 [facility] [address] [facility] [id number] [address] [place] [phone] Mar, [facility] [address] [facility] [id number] [address] [place] [phone] Mar, Chronic kidney disease, stag e 4 (severe) N18.4 [facility] [address] [facility] [id number] [address] [place] [phone] Mar, Chronic kidney disease, stag e 4 (severe) N18.4 [facility] [address] [facility] [id number] [address] [place] [phone] Mar, Labyrinthitis of left ear H8 3.02 [facility] [address] [place] [id number] [address] [place] [phone] Mar, Chronic kidney disease, stag e 4 (severe) N18.4 ; Knee pain, left anterior M25.562 ; 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 and Encounter for immunization Z23 [place] [address] [address] [place] [id number] [address] [place] [phone] Mar, Arthritis M19.90 [place] [address] [place] [id number] [address] [place] [phone] Feb, Labyrinthitis of left ear H8 3.02 [facility] [address] [place] [id number] [address] [place] [id number] Feb, Arthritis M19.90 [place] [address] [place] [id number] [address] [place] [phone] Jan, Labyrinthitis of left ear H8 3.02 [place] [address] [place] [id number] [address] [place] [phone] Jan, Arthritis M19.90 [facility] [address] [facility] [id number] [address] [place] [phone] Dec, Labyrinthitis of left ear H8 3.02 [facility] [address] [facility] [id number] [address] [place] [phone] Nov, Arthritis M19.90 [facility] [address] [place] [id number] [address] [place] [phone] Nov, Labyrinthitis of left ear H8 3.02 [facility] [address] [facility] [id number] [address] [place] [id number] Nov, BMI 40.0-44.9, adult Z68.41 ; Chronic kidney disease, stage 4 (severe) N18.4 and Acute right-sided thoracic back pain M54.6 [facility] [address] [facility] [id number] [address] [place] [phone] October, Labyrinthitis of left ear H8 3.02 and Arthritis M19.90 [facility] [address] [facility] [id number] [address] [place] [phone] Sep, BPV (benign positional verti go), bilateral H81.13 ; Dysfunction of left eustachian tube H69.82 and BMI 40.0-44.9, adult Z68.41 [facility] [address] [facility] [id number] [address] [place] [id number] Sep, Labyrinthitis of left ear H8 3.02 and Arthritis M19.90 [facility] [address] [facility] [id number] [address] [place] [phone] Sep, [facility] [address] [place] [id number] [address] [place] [phone] Sep, [facility] [address] [facility] [id number] [address] [place] [phone] Sep, Chronic kidney disease, stag e 4 (severe) N18.4 [facility] [address] [facility] [id number] [address] [place] [id number] Sep, Chronic kidney disease, stag e 4 (severe) N18.4 [facility] [address] [facility] [id number] [address] [place] [phone] Aug, Labyrinthitis of left ear H8 3.02 and Arthritis M19.90 [facility] [address] [facility] [id number] [address] [place] [phone] Aug, [facility] [address] [facility] [id number] [address] [place] [phone] Jul, [facility] [address] [facility] [id number] [address] [place] [phone] Jul, Arthritis M19.90 and Labyrin thitis of left ear H83.02 [facility] [address] [place] [id number] [address] [place] [phone] Jul, [facility] [address] [place] [id number] [address] [place] [phone] Jun, [place] [address] [place] [id number] [address] [place] [phone] Jun, Arthritis M19.90 and Labyrin thitis of left ear H83.02 [place] [address] [place] [id number] [address] [place] [id number] Jun, Pre-op evaluation Z01.818 ; BMI 40.0-44.9, adult Z68.41 and Encounter for immunization Z23 [place] [address] [place] [id number] [address] [place] [phone] May, Arthritis M19.90 and Labyrin thitis of left ear H83.02 [place] [address] [place] [id number] [address] [place] [phone] Apr, Labyrinthitis of left ear H8 3.02 [place] [address] [place] [id number] [address] [place] [id number] Apr, Arthritis M19.90 and Labyrin thitis of left ear H83.02 [place] [address] [facility] [id number] [address] [place] [id number] 10 Mar, 2017 Arthritis M19.90 and Labyrin thitis of left ear H83.02 [facility] [address] [facility] [id number] [address] [place] [phone] 05 Mar, 2017 Chronic kidney disease, stag e 4 (severe) N18.4 [place] [address] [place] [id number] [address] [place] [id number] 06 Feb, 2017 Arthritis M19.90 and Labyrin thitis of left ear H83.02 [facility] [address] [facility] [id number] [address] [place] [phone] Jan, Labyrinthitis of left ear H8 3.02 and 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 [facility] [address] [facility] [id number] [address] [place] [id number] Dec, Arthritis M19.90 [facility] [address] [facility] [id number] [address] [place] [phone] Dec, BPV (benign positional verti go), bilateral H81.13 [facility] [address] [facility] [id number] [address] [place] [phone] Dec, [facility] [address] [place] [id number] [address] [place] [phone] Dec, [facility] [address] [facility] [id number] [address] [place] [phone] Dec, [facility] [address] [facility] [id number] [address] [place] [id number] Nov, Arthritis M19.90 and Deficie ncy of other specified B group vitamins E53.8 [facility] [address] [facility] [id number] [address] [place] [phone] Nov, Arthritis M19.90 [facility] [address] [facility] [id number] [address] [place] [phone] Nov, Hyperparathyroidism E21.3 [facility] [address] [facility] [id number] [address] [place] [phone] October, [facility] [address] [place] [id number] [address] [place] [phone] October, Hyperparathyroidism E21.3 [facility] [address] [place] [id number] [address] [place] [phone] October, [facility] [address] [facility] [id number] [address] [place] [phone] October, Renal insufficiency N28.9 an d Hyperparathyroidism E21.3 [facility] [address] [facility] [id number] [address] [place] [phone] October, [facility] [address] [facility] [id number] [address] [place] [phone] October, Renal insufficiency N28.9 an d Hyperparathyroidism E21.3 [facility] [address] [facility] [id number] [address] [place] [phone] October, Arthritis M19.90 [facility] [address] [facility] [id number] [address] [place] [phone] Sep, [facility] [address] [facility] [id number] [address] [place] [phone] Sep, Lumbar neuritis M54.16 ; Tho racic abscess J86.9 and 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 [facility] [address] [facility] [id number] [address] [place] [phone] Sep, [facility] [address] [facility] [id number] [address] [place] [phone] Aug, Arthritis M19.90 [facility] [address] [facility] [id number] [address] [place] [phone] Aug, Hyperparathyroidism E21.3 [facility] [address] [facility] [id number] [address] [place] [phone] Aug, Hyperparathyroidism E21.3 [facility] [address] [facility] [id number] [address] [place] [phone] Aug, Arthritis M19.90 [facility] [address] [facility] [id number] [address] [place] [phone] Jul, Mass of throat R22.1 [facility] [address] [facility] [id number] [address] [place] [id number] Jul, [facility] [address] [facility] [id number] [address] [place] [id number] 10 Jul, 2016 Arthritis M19.90 [facility] [address] [facility] [id number] [address] [place] [phone] Jun, Arthritis M19.90 [facility] [address] [facility] [id number] [address] [place] [id number] Jun, [facility] [address] [facility] [id number] [address] [place] [phone] Jun, Renal insufficiency N28.9 an d 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 [facility] [address] [facility] [id number] [address] [place] [phone] 05 Jun, 2016 Medicare welcome exam Z00.00 ; Encounter for immunization Z23 ; Arthritis M19.90 ; Medicare annual wellness visit, initial Z00.00 ; Medicare annual wellness visit, subsequent Z00.00 and 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 [facility] [address] [facility] [id number] [address] [place] [phone] 29 May, 2016 Renal insufficiency N28.9 an d 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 [facility] [address] [facility] [id number] [address] [place] [phone] 19 May, 2016 Renal insufficiency N28.9 [facility] [address] [facility] [id number] [address] [place] [phone] 16 May, 2016 Renal insufficiency N28.9 [facility] [address] [facility] [id number] [address] [place] [phone] 14 May, 2016 [facility] [address] [facility] [id number] [address] [place] [phone] Apr, [facility] [address] [place] [id number] [address] [place] [phone] Apr, [facility] [address] [facility] [id number] [address] [place] [phone] 14 Apr, 2016 Mass of throat R22.1 [facility] [address] [id number] [address] [place] [id number] Apr, [facility] [address] [id number] [address] [place] [id number] Apr, Mass of throat R22.1 [facility] [address] [id number] [address] [place] [phone] 04 Apr, 2016 Mass of throat R22.1 [facility] [address] [id number] [address] [place] [phone] Mar, [facility] [address] [id number] [address] [place] [phone] Mar, [facility] [address] [id number] [address] [place] [phone] Mar, [facility] [address] [id number] [address] [place] [phone] 24 Mar, 2016 Parathyroid abnormality E21. 5 and Encounter for immunization Z23 [facility] [address] [id number] [address] [place] [phone] 17 Mar, 2016 [facility] [address] [id number] [address] [place] [phone] 11 Mar, 2016 [facility] [address] [facility] [id number] [address] [place] [id number] 21 Feb, 2016 Renal insufficiency N28.9 an d Hyperparathyroidism E21.3 [facility] [address] [id number] [address] [place] [phone] 19 Feb, 2016 [facility] [address] [id number] [address] [place] [phone] 15 Feb, 2016 Renal insufficiency N28.9 an d Hyperparathyroidism E21.3 [facility] [address] [id number] [address] [place] [id number] 14 Feb, 2016 [facility] [address] [facility] [id number] [address] [place] [phone] Feb, [facility] [address] [facility] [id number] [address] [place] [phone] Feb, [facility] [address] [facility] [id number] [address] [place] [phone] Jan, [facility] [address] [facility] [id number] [address] [place] [phone] Jan, Arthritis M19.90 ; Lumbago w ith sciatica, right side M54.41 and Other chronic pain G89.29 [place] [address] [facility] [id number] [address] [place] [phone] Jan, [place] [address] [facility] [id number] [address] [place] [id number] Dec, Arthritis M19.90 ; Lumbago w ith sciatica, right side M54.41 and Other chronic pain G89.29 [place] [address] [place] [id number] [address] [place] [id number] Nov, Deficiency of other specifie d B group vitamins E53.8 ; Primary insomnia F51.01 ; Mood disorder F39 and Lumbago with sciatica, right side M54.41 [place] [address] [facility] [id number] [address] [place] [id number] Nov, Hyperparathyroidism E21.3 [place] [address] [place] [id number] [address] [place] [phone] Nov, Unspecified kidney failure N 19 and Hyperparathyroidism E21.3 [place] [address] [facility] [id number] [address] [place] [phone] October, Hyperparathyroidism E21.3 [place] [address] [facility] [id number] [address] [place] [phone] October, [place] [address] [facility] [id number] [address] [place] [phone] October, Hyperparathyroidism E21.3 [place] [address] [place] [id number] [address] [place] [id number] October, Hyperparathyroidism E21.3 [facility] [address] [place] [id number] [address] [place] [phone] Sep, Hyperparathyroidism E21.3 ; Hypercholesterolemia E78.0 and Arthritis M19.90 [facility] [address] [facility] [id number] [address] [place] [phone] Aug, [facility] [address] [address] Aug, Deficiency of other specifie d B group vitamins E53.8 [facility] [address] [place] [id number] [place] [phone] Aug, [facility] [address] [place] [id number] [place] [phone] Jul, Urinary frequency R35.0 [facility] [id number] [place] [phone] Jul, Urinary frequency R35.0 [facility] [address] [facility] [id number] [address] [place] [phone] Jul, [facility] [address] [phone] Jul, [facility] [address] [place] [id number] [address] [place] [id number] Jun, Pain in left knee M25.562 [facility] [address] [place] [id number] [address] [place] [phone] Jun, [facility] [address] [place] [id number] [address] [place] [phone] May, Swelling of left knee joint M25.462 [facility] [address] [place] [id number] [address] [place] [id number] May, [facility] [address] [place] [id number] [address] [place] [phone] May, [facility] [address] [place] [id number] [address] [place] [id number] May, [facility] [address] [facility] [id number] [address] [place] [phone] Apr, Renal insufficiency N28.9 an d Chronic kidney disease, stage 4 (severe) N18.4 [facility] [address] [facility] [id number] [address] [place] [phone] Apr, Unspecified kidney failure N 19 [facility] [address] [facility] [id number] [address] [place] [phone] Apr, Unspecified kidney failure N 19 [facility] [address] [facility] [id number] [address] [place] [phone] Apr, [facility] [address] [facility] [id number] [address] [place] [phone] Apr, Hyperparathyroidism, unspeci fied 252.00 [facility] [address] [facility] [id number] [address] [place] [phone] Apr, [facility] [address] [facility] [id number] [address] [place] [phone] Mar, [facility] [address] [facility] [id number] [address] [place] [phone] Mar, [facility] [address] [facility] [id number] [address] [place] [phone] Mar, Hyperparathyroidism, unspeci fied 252.00 [facility] [address] [facility] [id number] [address] [place] [phone] Feb, [facility] [address] [facility] [id number] [address] [place] [id number] Feb, Otalgia 388.70 [facility] [address] [facility] [id number] [address] [place] [phone] Feb, [facility] [address] [facility] [id number] [address] [place] [phone] Feb, [facility] [address] [id number] [address] [place] [phone] Jan, [facility] [address] [id number] [address] [place] [phone] Jan, Hyperparathyroidism, unspeci fied 252.00 [facility] [address] [id number] [address] [place] [id number] Jan, [facility] [address] [id number] [address] [place] [phone] Jan, Other B-complex deficiencies 266.2 and Hyperparathyroidism, unspecified 252.00 [facility] [address] [id number] [address] [place] [phone] Jan, [facility] [address] [id number] [address] [place] [phone] Jan, [facility] [address] [id number] [address] [place] [phone] Jan, [facility] [address] [id number] [address] [place] [phone] Dec, [facility] [address] [address] [id number] [address] [place] [id number] Dec, [facility] [address] [id number] [address] [place] [id number] Dec, [facility] [address] [id number] [address] [place] [id number] Nov, Routine check-up V70.0 and P re-op exam V72.84 [facility] [address] [id number] [address] [place] [id number] Nov, [facility] [address] [id number] [address] [place] [id number] Nov, [facility] [address] [id number] [address] [place] [address] October, [facility] [address] [id number] [address] [place] [id number] October, Other B-complex deficiencies 266.2 [facility] [address] [id number] [address] [place] [id number] 12 Oct, 2014 [facility] [address] [id number] [address] [place] [id number] 14 Sep, 2014 [facility] [address] [id number] [address] [place] [id number] 13 Sep, 2014 [facility] [address] [id number] [address] [place] [id number] 20 Aug, 2014 [facility] [address] [id number] [address] [place] [id number] 20 Aug, 2014 [facility] [address] [id number] [address] [place] [id number] 17 Aug, 2014 [facility] [address] [id number] [address] [place] [id number] 17 Aug, 2014 [facility] [address] [id number] [address] [place] [id number] Aug, [facility] [address] [id number] [address] [place] [id number] Aug, [facility] [address] [id number] [address] [place] [id number] 18 Jul, 2014 [facility] [address] [id number] [address] [place] [id number] 18 Jul, 2014 [facility] [address] [id number] [address] [place] [id number] 17 Jul, 2014 [facility] [address] [id number] [address] [place] [id number] 17 Jul, 2014 [facility] [address] [id number] [address] [place] [id number] 12 Jul, 2014 [facility] [address] [id number] [address] [place] [id number] Jul, 2014 [facility] [address] [id number] [address] [place] [address], [place] [address] Jul, 2014 [facility] [address] [id number] [address] [place] [address], [place] [address] Jul, 2014 [facility] [address] [id number] [address] [place] [address], [place] [address] Jul, 2014 [facility] [address] [id number] [address] [place] [address], [place] [address] Jul, 2014 [facility] [address] [id number] [address] [place] [address], [place] [address] Jul, 2014 [facility] [address] [id number] [address] [place] [address], [place] [address] Jul, 2014 [facility] [address] [id number] [address] [place] [address], [place] [address] Jul, 2014 [facility] [address] [id number] [address] [place] [address], [place] [address] Jul, [facility] [address] [id number] [address] [place] [address], [place] [address] Jun, [facility] [address] [id number] [address] [place] [id number] Jun, [facility] [address] [id number] [address] [place] [address], [place] [address] Jun, [facility] [address] [id number] [address] [place] [id number] Jun, [facility] [address] [id number] [address] [place] [address], [place] [address] Jun, [facility] [address] [id number] [address] [place] [id number] Jun, [facility] [address] [id number] [address] [place] [id number] Jun, [facility] [address] [id number] [address] [place] [address], [place] [address] Jun, [facility] [address] [id number] [address] [place] [address], [place] [address] Jun, [facility] [address] [id number] [address] [place] [address], [place] [address] Jun, [facility] [address] [id number] [address] [place] [address], [place] [address] Jun, [facility] [address] [id number] [address] [place] [address], [place] [address] Jun, [facility] [address] [id number] [address] [place] [address], [place] [address] Jun, [facility] [address] [id number] [address] [place] [address], [place] [address] Jun, [facility] [address] [id number] [address] [place] [address], [place] [address] May, [facility] [address] [id number] [address] [place] [address], [place] [address] May, [facility] [address] [id number] [address] [place] [address], [place] [address] May, [facility] [address] [id number] [address] [place] [address], [place] [address] May, [facility] [address] [id number] [address] [place] [address], [place] [address] Apr, [facility] [address] [id number] [address] [place] [address], [place] [address] Apr, [facility] [address] [id number] [address] [place] [address], [place] [address] Apr, [facility] [address] [id number] [address] [place] [address], [place] [address] Apr, [facility] [address] [id number] [address] [place] [id number] Apr, [facility] [address] [id number] [address] [place] [address], [place] [address] Apr, [facility] [address] [id number] [address] [place] [id number] Mar, [facility] [address] [id number] [address] [place] [address], [place] [address] Mar, [facility] [address] [id number] [address] [place] [address] Mar, [facility] [address] [id number] [address] [place] [address], [place] [address] Mar, [facility] [address] [id number] [address] [place] [id number] Mar, [facility] [address] [id number] [address] [place] [id number] Mar, [facility] [address] [id number] [address] [place] [address] Mar, [facility] [address] [id number] [address] [place] [address] Mar, [facility] [address] [id number] [address] [place] [id number] Mar, [facility] [address] [id number] [address] [place] [id number] Mar, [facility] [address] [id number] [address] [place] [address] Mar, [facility] [address] [id number] [address] [place] [address] Mar, [facility] [address] [id number] [address] [place] [id number] Mar, [facility] [address] [id number] [address] [place] [address], [place] [address] Feb, [facility] [address] [id number] [facility] [place] [address] 26 Feb, 2013 [facility] [address] [id number] [facility] [place] [address] 23 Feb, 2014 [facility] [address] [id number] [facility] [place] [address] 23 Feb, 2013 [facility] [address] [id number] [address] [place] [address], [place] [address] 19 Feb, 2013 [facility] [address] [id number] [facility] [place] [address] 19 Feb, 2013 [facility] [address] [id number] [address] [place] [address], [place] [address] 13 Feb, 2014 [facility] [address] [id number] [address] [place] [address], [place] [address] Feb, [facility] [address] [id number] [address] [place] [address], [place] [address] Feb, [facility] [address] [id number] [address] [place] [address], [place] [address] Feb, [facility] [address] [id number] [address] [place] [address], [place] [address] Jan, [facility] [address] [id number] [address] [place] [address], [place] [address] Jan, [facility] [address] [id number] [address] [place] [address], [place] [address] Dec, [facility] [address] [id number] [address] [place] [address], [place] [address] Dec, [facility] [address] [id number] [address] [place] [address], [place] [address] Dec, [facility] [address] [id number] [address] [place] [address], [place] [address] Dec, [facility] [address] [id number] [address] [place] [address], [place] [address] Dec, [facility] [address] [id number] [facility] [place] [address] Dec, [facility] [address] [id number] [address] [place] [address], [place] [address] Nov, [facility] [address] [id number] [address] [place] [address], [place] [address] Nov, [facility] [address] [id number] [address] [place] [address], [place] [address] Nov, [facility] [address] [id number] [address] [place] [address], [place] [address] Nov, [facility] [address] [id number] [address] [place] [address], [place] [address] October, [facility] [address] [id number] [address] [place] [address], [place] [address] October, [facility] [address] [id number] [address] [place] [address], [place] [address] October, [facility] [address] [id number] [address] [place] [address], [place] [address] October, [facility] [address] [id number] [address] [place] [address], [place] [address] October, [facility] [address] [id number] [address] [place] [address], [place] [address] October, [facility] [address] [id number] [address] [place] [address], [place] [address] October, [facility] [address] [id number] [address] [place] [address], [place] [address] October, [facility] [address] [id number] [address] [place] [address], [place] [address] October, [facility] [address] [id number] [address] [place] [address], [place] [address] October, [facility] [address] [id number] [address] [place] [address], [place] [address] October, [facility] [address] [id number] [address] [place] [address], [place] [address] October, [facility] [address] [id number] [address] [place] [address], [place] [address] October, [facility] [address] [id number] [address] [place] [address], [place] [address] October, [facility] [address] [id number] [address] [place] [address], [place] [address] October, [facility] [address] [id number] [address] [place] [address], [place] [address] October, [facility] [address] [id number] [address] [place] [address], [place] [address] Sep, [facility] [address] [id number] [address] [place] [address], [place] [address] Sep, [facility] [address] [id number] [address] [place] [address], [place] [address] Sep, [facility] [address] [id number] [address] [place] [address], [place] [address] Sep, [facility] [address] [id number] [address] [place] [address], [place] [address] Sep, [facility] [address] [id number] [address] [place] [address], [place] [address] Sep, [facility] [address] [id number] [address] [place] [address], [place] [address] Aug, [facility] [address] [id number] [address] [place] [address], [place] [address] Aug, [facility] [address] [id number] [address] [place] [address], [place] [address] Aug, [facility] [address] [id number] [address] [place] [address], [place] [address] Aug, [facility] [address] [id number] [address] [place] [address], [place] [address] Aug, [facility] [address] [id number] [address] [place] [address], [place] [address] Aug, [facility] [address] [id number] [address] [place] [address], [place] [address] Jul, [facility] [address] [id number] [address] [place] [address], [place] [address] Jul, [facility] [address] [id number] [address] [place] [address], [place] [address] Jul, [facility] [address] [id number] [address] [place] [address], [place] [address] Jul, [facility] [address] [id number] [address] [place] [address], [place] [address] Jun, [facility] [address] [id number] [address] [place] [address], [place] [address] Jun, [facility] [address] [id number] [address] [place] [address], [place] [address] May, [facility] [address] [id number] [address] [place] [address], [place] [address] May, [facility] [address] [id number] [address] [place] [address], [place] [address] May, [facility] [address] [id number] [address] [place] [address], [place] [address] May, [facility] [address] [id number] [address] [place] [address], [place] [address] May, [facility] [address] [id number] [address] [place] [address], [place] [address] Apr, [facility] [address] [id number] [address] [place] [address], [place] [address] 13 Apr, 2013 [facility] [address] [id number] [address] [place] [address] Apr, [facility] [address] [id number] [address] [place] [address], [place] [address] Apr, [facility] [address] [id number] [address] [place] [address] Apr, [facility] [address] [id number] [address] [place] [address], [place] [address] Apr, [facility] [address] [id number] [address] [place] [address] 15 Mar, 2013 [facility] [address] [id number] [address] [place] [address], [place] [address] 15 Mar, 2013 [facility] [address] [id number] [address] [place] [address] 14 Mar, 2013 [facility] [address] [id number] [address] [place] [address] 14 Mar, 2013 [facility] [address] [id number] [address] [place] [address], [place] [address] Mar, [facility] [address] [id number] [address] [place] [address] Mar, [facility] [address] [id number] [address] [place] [address], [place] [address] 23 Feb, 2013 [facility] [address] [id number] [address] [place] [address], [place] [address] Feb, [facility] [address] [id number] [address] [place] [address] Feb, [facility] [address] [id number] [address] [place] [address], [place] [address] Jan, [facility] [address] [id number] [address] [place] [address], [place] [address] Jan, [facility] [address] [id number] [address] [place] [address], [place] [address] Jan, [facility] [address] [id number] [address] [place] [address], [place] [address] Jan, [facility] [address] [id number] [address] [place] [address], [place] [address] Jan, [facility] [address] [id number] [address] [place] [address], [place] [address] Jan, [facility] [address] [id number] [address] [place] [address], [place] [address] Dec, [facility] [address] [id number] [address] [place] [address], [place] [address] Dec, [facility] [address] [id number] [address] [place] [address], [place] [address] Dec, [facility] [address] [id number] [address] [place] [address], [place] [address] Dec, [facility] [address] [id number] [address] [place] [address], [place] [address] Dec, [facility] [address] [id number] [address] [place] [address], [place] [address] Dec, [facility] [address] [id number] [address] [place] [address], [place] [address] Nov, [facility] [address] [id number] [address] [place] [address], [place] [address] Nov, [facility] [address] [id number] [address] [place] [address], [place] [address] Nov, [facility] [address] [id number] [address] [place] [address], [place] [address] Nov, [facility] [address] [id number] [address] [place] [address], [place] [address] Nov, [facility] [address] [id number] [address] [place] [address], [place] [address] Nov, [facility] [address] [id number] [address] [place] [address], [place] [address] October, [facility] [address] [id number] [address] [place] [address], [place] [address] October, [facility] [address] [id number] [address] [place] [address], [place] [address] October, [facility] [address] [id number] [address] [place] [address], [place] [address] October, [facility] [address] [id number] [address] [place] [address], [place] [address] October, [facility] [address] [id number] [address] [place] [address], [place] [address] Sep, [facility] [address] [id number] [address] [place] [address], [place] [address] Sep, [facility] [address] [id number] [address] [place] [address], [place] [address] Sep, [facility] [address] [id number] [address] [place] [address], [place] [address] Sep, [facility] [address] [id number] [address] [place] [address], [place] [address] Sep, [facility] [address] [id number] [address] [place] [address], [place] [address] Aug, [facility] [address] [id number] [address] [place] [address], [place] [address] Aug, [facility] [address] [id number] [address] [place] [address], [place] [address] Aug, [facility] [address] [id number] [address] [place] [address], [place] [address] Jul, [facility] [address] [id number] [address] [place] [address], [place] [address] Jul, [facility] [address] [id number] [address] [place] [address], [place] [address] Jul, [facility] [address] [id number] [address] [place] [address], [place] [address] 08 Jul, 2012 [facility] [address] [id number] [address] [place] [address], [place] [address] 06 Jul, 2012 [facility] [address] [id number] [address] [place] [address], [place] [address] 05 Jul, 2012 [facility] [address] [id number] [address] [place] [address], [place] [address] Jun, [facility] [address] [id number] [address] [place] [address], [place] [address] Apr, [facility] [address] [id number] [address] [place] [address], [place] [address] Apr, [facility] [address] [id number] [address] [place] [address], [place] [address] Apr, [facility] [address] [id number] [address] [place] [address], [place] [address] Apr, [facility] [address] [id number] [address] [place] [address], [place] [address] Mar, [facility] [address] [id number] [address] [place] [address], [place] [address] Mar, [facility] [address] [id number] [address] [place] [address], [place] [address] Mar, [facility] [address] [id number] [address] [place] [address], [place] [address] Mar, [facility] [address] [id number] [address] [place] [address], [place] [address] Mar, [facility] [address] [id number] [address] [place] [address], [place] [address] Feb, [facility] [address] [id number] [address] [place] [address], [place] [address] Jan, [facility] [address] [id number] [address] [place] [address], [place] [address] Jan, [facility] [address] [id number] [address] [place] [id number] Jan, [facility] [address] [id number] [address] [place] [id number] Dec, [facility] [address] [id number] [address] [place] [id number] Nov, [facility] [address] [id number] [address] [place] [id number] Nov, [facility] [address] [id number] [address] [place] [id number] Nov, [facility] [address] [id number] [address] [place] [id number] Nov, [facility] [address] [id number] [address] [place] [id number] Nov, [facility] [address] [id number] [address] [place] [id number] October, [facility] [address] [id number] [address] [place] [id number] October, [facility] [address] [id number] [address] [place] [id number] October, [facility] [address] [id number] [address] [place] [id number] October, [facility] [address] [id number] [address] [place] [id number] October, IMMUNIZATIONS No Known Immunizations SOCIAL HISTORY [...]
--- OUTSIDE RECORDS SUMMARY | 2020-01-25 07:59 | XMS REPORT ---
Author Author Velma ACOSTA Organization [facility] Address [address] [place] [address] Care Team Providers Care Under Seal Operator Name Role Phone SRIKANTH ACOSTA Unavailable PROBLEMS Type Condition ICD9-CM Code BRI26-ND Code Onset Dates Condition S tatus SNOMED Code Problem Hyperparathyroidism E21.3 Active 39509500 Problem Mood disorder F39 Active 001256 05 Problem Arthritis M19.90 Active 8714165 Problem Primary insomnia F51.01 Active 397 2004 Problem Myalgia M79.1 Active 02406217 Problem Hypercholesteremia E78.0 Active 1 1101569 Problem Primary osteoarthritis of left knee M17.12 Active 637530301018908 Problem Chronic kidney disease, stage 4 (severe) N18.4 Active 533862417 Problem 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 Active 49264045 Problem Corns L84 Active 294748882 Problem BPV (benign positional vertigo), bilateral H81.13 Active 634163544 Problem 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 Active 61624551 ALLERGIES No Information ENCOUNTERS Encounter Location Date Diagnosis [place] [address] [place] [phone] Apr, [place] [address] [place] [id number] [address] [place] [address] Apr, Exercise counseling Z71.82 [place] [id number] [place] [phone] Apr, Primary osteoarthritis of le ft knee M17.12 [place] [address] [place] [id number] [place] [phone] Apr, Labyrinthitis of left ear H8 3.02 [place] [address] [place] [id number] [place] [phone] Mar, Arthritis M19.90 [facility] [address] [facility] [id number] [address] [place] [id number] Mar, [facility] [address] [facility] [id number] [address] [place] [phone] Mar, Chronic kidney disease, stag e 4 (severe) N18.4 [facility] [address] [place] [id number] [place] [id number] Mar, Chronic kidney disease, stag e 4 (severe) N18.4 [facility] [address] [facility] [id number] [address] [place] [phone] Mar, Labyrinthitis of left ear H8 3.02 [place] [address] [place] [id number] [place] [phone] Mar, Chronic kidney disease, stag e 4 (severe) N18.4 ; Knee pain, left anterior M25.562 ; Deficiency of other specified B group vitamins E53.8 and Encounter for immunization Z23 [facility] [address] [place] [id number] [place] [id number] Mar, Arthritis M19.90 [place] [address] [place] [id number] [address] [place] [id number] Feb, Labyrinthitis of left ear H8 3.02 [place] [address] [place] [id number] [place] [phone] Feb, Arthritis M19.90 [facility] [address] [place] [id number] [place] [phone] Jan, Labyrinthitis of left ear H8 3.02 [facility] [address] [place] [id number] [address] [place] [phone] Jan, Arthritis M19.90 [facility] [address] [place] [id number] [place] [phone] Dec, Labyrinthitis of left ear H8 3.02 [facility] [address] [facility] [id number] [address] [place] [phone] Nov, Arthritis M19.90 [place] [address] [facility] [id number] [address] [place] [phone] Nov, Labyrinthitis of left ear H8 3.02 [facility] [address] [facility] [id number] [address] [place] [id number] Nov, BMI 40.0-44.9, adult Z68.41 ; Chronic kidney disease, stage 4 (severe) N18.4 and Acute right-sided thoracic back pain M54.6 [place] [address] [facility] [id number] [address] [place] [phone] October, Labyrinthitis of left ear H8 3.02 and Arthritis M19.90 [place] [address] [place] [id number] [place] [phone] Sep, BPV (benign positional verti go), bilateral H81.13 ; Dysfunction of left eustachian tube H69.82 and BMI 40.0-44.9, adult Z68.41 [place] [address] [place] [id number] [address] [place] [phone] Sep, Labyrinthitis of left ear H8 3.02 and Arthritis M19.90 [place] [address] [place] [id number] [place] [id number] Sep, [place] [address] [place] [id number] [place] [phone] Sep, [place] [address] [place] [id number] [place] [id number] Sep, Chronic kidney disease, stag e 4 (severe) N18.4 [place] [id number] [place] [id number] [place] [phone] Sep, Chronic kidney disease, stag e 4 (severe) N18.4 [place] [address] [place] [id number] [place] [phone] Aug, Labyrinthitis of left ear H8 3.02 and Arthritis M19.90 [facility] [address] [id number] [address] [place] [phone] Aug, [facility] [address] [id number] [address] [place] [phone] Jul, [facility] [address] [id number] [address] [place] [phone] Jul, Arthritis M19.90 and Labyrin thitis of left ear H83.02 [facility] [address] [id number] [address] [place] [phone] Jul, [facility] [address] [id number] [address] [place] [phone] Jun, [facility] [address] [facility] [id number] [address] [place] [id number] Jun, Arthritis M19.90 and Labyrin thitis of left ear H83.02 [facility] [address] [id number] [address] [place] [id number] Jun, Pre-op evaluation Z01.818 ; BMI 40.0-44.9, adult Z68.41 and Encounter for immunization Z23 [facility] [address] [id number] [address] [place] [phone] May, Arthritis M19.90 and Labyrin thitis of left ear H83.02 [facility] [address] [id number] [address] [place] [phone] Apr, Labyrinthitis of left ear H8 3.02 [facility] [address] [id number] [address] [place] [phone] Apr, Arthritis M19.90 and Labyrin thitis of left ear H83.02 [facility] [address] [id number] [address] [place] [phone] Mar, Arthritis M19.90 and Labyrin thitis of left ear H83.02 [facility] [address] [facility] [id number] [address] [place] [id number] 05 Mar, 2017 Chronic kidney disease, stag e 4 (severe) N18.4 [facility] [address] [facility] [id number] [address] [place] [id number] 06 Feb, 2017 Arthritis M19.90 and Labyrin thitis of left ear H83.02 [facility] [address] [facility] [id number] [address] [place] [phone] 10 Jan, 2017 Labyrinthitis of left ear H8 3.02 and Deficiency of other specified B group vitamins E53.8 [facility] [address] [facility] [id number] [address] [place] [phone] Dec, Arthritis M19.90 [facility] [address] [facility] [id number] [address] [place] [id number] Dec, BPV (benign positional verti go), bilateral H81.13 [facility] [address] [facility] [id number] [address] [place] [phone] Dec, [facility] [address] [facility] [id number] [address] [place] [phone] Dec, [facility] [address] [facility] [id number] [address] [place] [phone] Dec, [facility] [address] [facility] [id number] [address] [place] [phone] Nov, Arthritis M19.90 and Deficie ncy of other specified B group vitamins E53.8 [facility] [address] [id number] [address] [place] [phone] Nov, Arthritis M19.90 [facility] [address] [facility] [id number] [address] [place] [phone] Nov, Hyperparathyroidism E21.3 [facility] [address] [facility] [id number] [address] [place] [id number] October, [facility] [address] [facility] [id number] [address] [place] [phone] October, Hyperparathyroidism E21.3 [facility] [address] [facility] [id number] [address] [place] [phone] October, [facility] [address] [facility] [id number] [address] [place] [phone] October, Renal insufficiency N28.9 an d Hyperparathyroidism E21.3 [facility] [address] [facility] [id number] [address] [place] [phone] October, [facility] [address] [facility] [id number] [address] [place] [phone] October, Renal insufficiency N28.9 an d Hyperparathyroidism E21.3 [facility] [address] [facility] [id number] [address] [place] [phone] October, Arthritis M19.90 [facility] [address] [facility] [id number] [address] [place] [phone] Sep, [facility] [address] [facility] [id number] [address] [place] [id number] Sep, Lumbar neuritis M54.16 ; Tho racic abscess J86.9 and Deficiency of other specified B group vitamins E53.8 [facility] [address] [facility] [id number] [address] [place] [phone] Sep, [facility] [address] [facility] [id number] [address] [place] [phone] Aug, Arthritis M19.90 [facility] [address] [facility] [id number] [address] [place] [id number] Aug, Hyperparathyroidism E21.3 [facility] [address] [facility] [id number] [address] [place] [id number] Aug, Hyperparathyroidism E21.3 [facility] [address] [facility] [id number] [address] [place] [phone] Aug, Arthritis M19.90 [facility] [address] [facility] [id number] [address] [place] [id number] Jul, Mass of throat R22.1 [facility] [address] [facility] [id number] [address] [place] [phone] Jul, [facility] [address] [facility] [id number] [address] [place] [id number] Jul, Arthritis M19.90 [facility] [address] [facility] [id number] [address] [place] [phone] Jun, Arthritis M19.90 [facility] [address] [place] [id number] [place] [phone] Jun, [facility] [address] [place] [id number] [address] [place] [id number] Jun, Renal insufficiency N28.9 an d 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 [facility] [id number] [place] [id number] 05 Jun, 2016 Medicare welcome exam Z00.00 ; Encounter for immunization Z23 ; Arthritis M19.90 ; Medicare annual wellness visit, initial Z00.00 ; Medicare annual wellness visit, subsequent Z00.00 and Deficiency of other specified B group vitamins E53.8 [facility] [address] [facility] [id number] [address] [place] [phone] May, Renal insufficiency N28.9 an d 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 [facility] [address] [facility] [id number] [address] [place] [phone] May, Renal insufficiency N28.9 [facility] [address] [place] [id number] [address] [place] [id number] May, Renal insufficiency N28.9 [facility] [address] [facility] [id number] [address] [place] [phone] May, [facility] [address] [place] [id number] [address] [place] [phone] Apr, [facility] [address] [id number] [address] [place] [phone] 16 Apr, 2016 [facility] [address] [id number] [address] [place] [phone] 14 Apr, 2016 Mass of throat R22.1 [facility] [address] [id number] [address] [place] [phone] 10 Apr, 2016 [facility] [address] [id number] [address] [place] [phone] 10 Apr, 2016 Mass of throat R22.1 [facility] [address] [id number] [address] [place] [phone] 04 Apr, 2016 Mass of throat R22.1 [facility] [address] [id number] [address] [place] [phone] Mar, [facility] [address] [facility] [id number] [address] [place] [id number] Mar, [facility] [address] [id number] [address] [place] [phone] Mar, [facility] [address] [facility] [id number] [address] [place] [id number] 24 Mar, 2016 Parathyroid abnormality E21. 5 and Encounter for immunization Z23 [facility] [address] [facility] [id number] [address] [place] [phone] Mar, [facility] [address] [facility] [id number] [address] [place] [phone] Mar, [facility] [address] [facility] [id number] [address] [place] [phone] 21 Feb, 2016 Renal insufficiency N28.9 an d Hyperparathyroidism E21.3 [facility] [address] [facility] [id number] [address] [place] [id number] 19 Feb, 2016 [facility] [address] [facility] [id number] [address] [place] [id number] 15 Sep, 2016 Renal insufficiency N28.9 an d Hyperparathyroidism E21.3 [facility] [address] [place] [id number] [place] [phone] 14 Feb, 2016 [facility] [address] [place] [id number] [place] [phone] Feb, [facility] [address] [place] [id number] [place] [phone] Feb, [facility] [address] [place] [address] Jan, [facility] [address] [place] [id number] [place] [address] Jan, Arthritis M19.90 ; Lumbago w ith sciatica, right side M54.41 and Other chronic pain G89.29 [place] [address] [address] Jan, [place] [address] [address] Dec, Arthritis M19.90 ; Lumbago w ith sciatica, right side M54.41 and Other chronic pain G89.29 [place] [address] [address] Nov, Deficiency of other specifie d B group vitamins E53.8 ; Primary insomnia F51.01 ; Mood disorder F39 and Lumbago with sciatica, right side M54.41 [place] [address] [place] [address] Nov, Hyperparathyroidism E21.3 [place] [address] [place] [id number] [place] [address] Nov, Unspecified kidney failure N 19 and Hyperparathyroidism E21.3 [place] [address] [place] [id number] [place] [phone] October, Hyperparathyroidism E21.3 [place] [address] [place] [id number] [place] [address] October, [facility] [address] [place] [phone] October, Hyperparathyroidism E21.3 [facility] [address] [place] [id number] [place] [address] October, Hyperparathyroidism E21.3 [facility] [address] [place] [id number] [place] [address] Sep, Hyperparathyroidism E21.3 ; Hypercholesterolemia E78.0 and Arthritis M19.90 [facility] [address] [address] Aug, [facility] [address] [address] Aug, Deficiency of other specifie d B group vitamins E53.8 [facility] [address] [address] Aug, [facility] [address] [address] Jul, Urinary frequency R35.0 [facility] [address] [address] Jul, Urinary frequency R35.0 [facility] [address] [id number] Jul, [facility] [address] [id number] Jul, [facility] [address] [place] [id number] [address] [place] [address] Jun, Pain in left knee M25.562 [facility] [address] [place] [id number] [address] [place] [address] Jun, [facility] [address] [place] [id number] [address] [place] [address] May, Swelling of left knee joint M25.462 [facility] [address] [facility] [id number] [address] [place] [phone] May, [facility] [address] [facility] [id number] [address] [place] [phone] May, [facility] [address] [facility] [id number] [address] [place] [phone] May, [facility] [address] [facility] [id number] [address] [place] [address] Apr, Renal insufficiency N28.9 an d Chronic kidney disease, stage 4 (severe) N18.4 [facility] [address] [facility] [id number] [address] [place] [phone] Apr, Unspecified kidney failure N 19 [facility] [address] [facility] [id number] [address] [place] [phone] Apr, Unspecified kidney failure N 19 [facility] [address] [facility] [id number] [address] [place] [id number] Apr, [facility] [address] [facility] [id number] [address] [place] [id number] Apr, Hyperparathyroidism, unspeci fied 252.00 [facility] [address] [facility] [id number] [address] [place] [phone] Apr, [facility] [address] [facility] [id number] [address] [place] [phone] Mar, [facility] [address] [facility] [id number] [address] [place] [id number] Mar, [facility] [address] [facility] [id number] [address] [place] [id number] Mar, Hyperparathyroidism, unspeci fied 252.00 [facility] [address] [facility] [id number] [address] [place] [phone] Feb, [facility] [address] [facility] [id number] [address] [place] [phone] Feb, Otalgia 388.70 [facility] [address] [id number] [address] [place] [id number] Feb, [facility] [address] [id number] [address] [place] [phone] Feb, [facility] [address] [facility] [id number] [address] [place] [phone] Jan, [facility] [address] [facility] [id number] [address] [place] [id number] Jan, Hyperparathyroidism, unspeci fied 252.00 [facility] [address] [facility] [id number] [address] [place] [id number] Jan, [facility] [address] [facility] [id number] [address] [place] [phone] Jan, Other B-complex deficiencies 266.2 and Hyperparathyroidism, unspecified 252.00 [facility] [address] [facility] [id number] [address] [place] [phone] Jan, [facility] [address] [facility] [id number] [address] [place] [id number] Jan, [facility] [address] [facility] [id number] [address] [place] [id number] Jan, [facility] [address] [facility] [id number] [address] [place] [id number] Dec, [facility] [address] [facility] [id number] [address] [place] [phone] Dec, [facility] [address] [facility] [id number] [address] [place] [phone] Dec, [facility] [address] [facility] [id number] [address] [place] [phone] Nov, Routine check-up V70.0 and P re-op exam V72.84 [facility] [address] [facility] [id number] [address] [place] [id number] Nov, [facility] [address] [id number] [address] [place] [address], [place] [id number] Nov, [facility] [address] [id number] [address] [place] [address], [place] [address] October, [facility] [address] [id number] [address] [place] [address], [place] [address] October, Other B-complex deficiencies 266.2 [facility] [address] [id number] [address] [place] [address], [place] [id number] October, [facility] [address] [id number] [address] [place] [address], [place] [id number] Sep, [facility] [address] [id number] [address] [place] [address], [place] [address] Sep, [facility] [address] [id number] [address] [place] [address], [place] [id number] Aug, [facility] [address] [id number] [address] [place] [address], [place] [address] Aug, [facility] [address] [id number] [address] [place] [address], [place] [address] Aug, [facility] [address] [id number] [address] [place] [id number] Aug, [facility] [address] [id number] [address] [place] [address], [place] [address] Aug, [facility] [address] [id number] [address] [place] [id number] Aug, [facility] [address] [id number] [address] [place] [address], [place] [address] 18 Jul, 2014 [facility] [address] [id number] [address] [place] [address], [place] [address] 18 Jul, 2014 [facility] [address] [id number] [address] [place] [address], [place] [id number] 17 Jul, 2014 [facility] [address] [id number] [address] [place] [address], [place] [id number] Jul, 2014 [facility] [address] [id number] [address] [place] [address], [place] [address] Jul, 2014 [facility] [address] [id number] [address] [place] [address], [place] [address] Jul, 2014 [facility] [address] [id number] [address] [place] [address], [place] [address] Jul, 2014 [facility] [address] [id number] [address] [place] [address], [place] [address] Jul, 2014 [facility] [address] [id number] [address] [place] [address], [place] [address] Jul, 2014 [facility] [address] [id number] [address] [place] [address], [place] [address] Jul, 2014 [facility] [address] [id number] [address] [place] [address], [place] [address] Jul, 2014 [facility] [address] [id number] [address] [place] [address], [place] [address] Jul, 2014 [facility] [address] [id number] [address] [place] [address], [place] [address] Jul, [facility] [address] [id number] [address] [place] [address], [place] [address] Jul, [facility] [address] [id number] [address] [place] [address], [place] [address] Jun, [facility] [address] [id number] [address] [place] [address], [place] [address] Jun, [facility] [address] [id number] [address] [place] [address], [place] [address] Jun, [facility] [address] [id number] [address] [place] [address], [place] [address] Jun, [facility] [address] [id number] [address] [place] [address], [place] [address] Jun, [facility] [address] [id number] [address] [place] [address], [place] [address] Jun, [facility] [address] [id number] [address] [place] [address], [place] [address] Jun, [facility] [address] [id number] [address] [place] [address], [place] [address] Jun, [facility] [address] [id number] [address] [place] [address], [place] [address] Jun, [facility] [address] [id number] [address] [place] [address], [place] [address] Jun, [facility] [address] [id number] [address] [place] [address], [place] [address] Jun, [facility] [address] [id number] [address] [place] [address], [place] [address] Jun, [facility] [address] [id number] [address] [place] [address], [place] [address] Jun, [facility] [address] [id number] [address] [place] [address], [place] [address] Jun, [facility] [address] [id number] [address] [place] [address], [place] [address] May, [facility] [address] [id number] [address] [place] [address], [place] [address] May, [facility] [address] [id number] [address] [place] [address], [place] [address] May, [facility] [address] [id number] [address] [place] [address], [place] [address] May, [facility] [address] [id number] [address] [place] [address], [place] [address] Apr, [facility] [address] [id number] [address] [place] [address], [place] [address] Apr, [facility] [address] [id number] [address] [place] [address], [place] [address] Apr, [facility] [address] [id number] [address] [place] [address], [place] [address] Apr, [facility] [address] [id number] [address] [place] [address], [place] [address] Apr, [facility] [address] [id number] [address] [place] [address], [place] [address] Apr, [facility] [address] [id number] [address] [place] [address], [place] [address] Mar, [facility] [address] [id number] [address] [place] [address], [place] [address] Mar, [facility] [address] [id number] [address] [place] [address], [place] [address] Mar, [facility] [address] [id number] [address] [place] [address], [place] [address] Mar, [facility] [address] [id number] [address] [place] [address], [place] [address] Mar, [facility] [address] [id number] [address] [place] [address], [place] [address] Mar, [facility] [address] [id number] [address] [place] [address], [place] [address] Mar, [facility] [address] [id number] [address] [place] [address], [place] [address] Mar, [facility] [address] [id number] [address] [place] [address], [place] [address] Mar, [facility] [address] [id number] [address] [place] [address], [place] [address] Mar, [facility] [address] [id number] [address] [place] [address], [place] [address] Mar, [facility] [address] [id number] [address] [place] [address], [place] [address] Mar, [facility] [address] [id number] [address] [place] [address], [place] [address] Mar, [facility] [address] [id number] [address] [place] [address], [place] [address] Feb, [facility] [address] [id number] [address] [place] [address], [place] [address] Feb, [facility] [address] [id number] [address] [place] [address], [place] [address] Feb, [facility] [address] [id number] [address] [place] [address], [place] [address] Feb, [facility] [address] [id number] [address] [place] [address], [place] [address] Feb, [facility] [address] [id number] [address] [place] [address], [place] [address] Feb, [facility] [address] [id number] [address] [place] [address], [place] [address] Feb, [facility] [address] [id number] [address] [place] [address], [place] [address] Feb, [facility] [address] [id number] [address] [place] [address], [place] [address] Feb, [facility] [address] [id number] [address] [place] [address], [place] [address] Feb, [facility] [address] [id number] [address] [place] [address], [place] [address] Jan, [facility] [address] [id number] [address] [place] [address], [place] [address] Jan, [facility] [address] [id number] [address] [place] [address], [place] [address] Dec, [facility] [address] [id number] [address] [place] [address], [place] [address] Dec, [facility] [address] [id number] [address] [place] [address] Dec, [facility] [address] [id number] [facility] [place] [address] Dec, [facility] [address] [id number] [address] [place] [address], [place] [address] Dec, [facility] [address] [id number] [address] [place] [address], [place] [address] Dec, [facility] [address] [id number] [address] [place] [address], [place] [address] Nov, [facility] [address] [id number] [address] [place] [address], [place] [address] Nov, [facility] [address] [id number] [address] [place] [address], [place] [address] Nov, [facility] [address] [id number] [address] [place] [address], [place] [address] Nov, [facility] [address] [id number] [address] [place] [address], [place] [address] October, [facility] [address] [id number] [address] [place] [address], [place] [address] October, [facility] [address] [id number] [address] [place] [address], [place] [address] October, [facility] [address] [id number] [address] [place] [address], [place] [address] October, [facility] [address] [id number] [address] [place] [address], [place] [address] October, [facility] [address] [id number] [address] [place] [address], [place] [address] October, [facility] [address] [id number] [address] [place] [address], [place] [address] October, [facility] [address] [id number] [address] [place] [address], [place] [address] October, [facility] [address] [id number] [address] [place] [address] October, [facility] [address] [id number] [address] [place] [address] October, [facility] [address] [id number] [address] [place] [address] October, [facility] [address] [id number] [address] [place] [address], [place] [address] October, [facility] [address] [id number] [address] [place] [address], [place] [address] October, [facility] [address] [id number] [address] [place] [address], [place] [address] October, [facility] [address] [id number] [address] [place] [address], [place] [address] October, [facility] [address] [id number] [address] [place] [address], [place] [address] October, [facility] [address] [id number] [address] [place] [address], [place] [address] Sep, [facility] [address] [id number] [address] [place] [address], [place] [address] Sep, [facility] [address] [id number] [address] [place] [address], [place] [address] Sep, [facility] [address] [id number] [address] [place] [address], [place] [address] Sep, [facility] [address] [id number] [address] [place] [address], [place] [address] Sep, [facility] [address] [id number] [address] [place] [address], [place] [address] Sep, [facility] [address] [id number] [address] [place] [address], [place] [address] Aug, [facility] [address] [id number] [address] [place] [address], [place] [address] Aug, [facility] [address] [id number] [address] [place] [address] Aug, [facility] [address] [id number] [address] [place] [address], [place] [address] Aug, [facility] [address] [id number] [address] [place] [address], [place] [address] Aug, [facility] [address] [id number] [address] [place] [address], [place] [address] Aug, [facility] [address] [id number] [address] [place] [address], [place] [address] Jul, [facility] [address] [id number] [address] [place] [address], [place] [address] Jul, [facility] [address] [id number] [address] [place] [address], [place] [address] Jul, [facility] [address] [id number] [address] [place] [address], [place] [address] Jul, [facility] [address] [id number] [address] [place] [address], [place] [address] Jun, [facility] [address] [id number] [address] [place] [address], [place] [address] Jun, [facility] [address] [id number] [address] [place] [address], [place] [address] May, [facility] [address] [id number] [address] [place] [address], [place] [address] May, [facility] [address] [id number] [address] [place] [address], [place] [address] May, [facility] [address] [id number] [address] [place] [address], [place] [address] May, [facility] [address] [id number] [address] [place] [address], [place] [address] May, [facility] [address] [id number] [address] [place] [address], [place] [address] 13 Apr, 2013 [facility] [address] [id number] [address] [place] [address], [place] [address] Apr, [facility] [address] [id number] [address] [place] [address], [place] [address] Apr, [facility] [address] [id number] [address] [place] [address], [place] [address] Apr, [facility] [address] [id number] [address] [place] [address], [place] [address] Apr, [facility] [address] [id number] [address] [place] [address], [place] [address] 04 Apr, 2013 [facility] [address] [id number] [address] [place] [address], [place] [address] 15 Mar, 2013 [facility] [address] [id number] [address] [place] [address], [place] [address] 15 Mar, 2013 [facility] [address] [id number] [address] [place] [address], [place] [address] 14 Mar, 2013 [facility] [address] [id number] [address] [place] [address], [place] [address] 14 Mar, 2013 [facility] [address] [id number] [address] [place] [address], [place] [address] 11 Mar, 2013 [facility] [address] [id number] [address] [place] [address], [place] [address] 11 Mar, 2013 [facility] [address] [id number] [address] [place] [address], [place] [address] 23 Feb, 2013 [facility] [address] [id number] [address] [place] [address], [place] [address] 19 Feb, 2013 [facility] [address] [id number] [address] [place] [address], [place] [address] 04 Feb, 2013 [facility] [address] [id number] [address] [place] [address], [place] [address] Jan, [facility] [address] [id number] [address] [place] [address], [place] [address] Jan, [facility] [address] [id number] [address] [place] [address], [place] [address] Jan, [facility] [address] [id number] [address] [place] [address], [place] [address] Jan, [facility] [address] [id number] [address] [place] [address], [place] [address] Jan, [facility] [address] [id number] [address] [place] [address], [place] [address] Jan, [facility] [address] [id number] [address] [place] [address], [place] [address] Dec, [facility] [address] [id number] [address] [place] [address], [place] [address] Dec, [facility] [address] [id number] [address] [place] [address], [place] [address] Dec, [facility] [address] [id number] [address] [place] [address], [place] [address] Dec, [facility] [address] [id number] [address] [place] [address], [place] [address] Dec, [facility] [address] [id number] [address] [place] [address], [place] [address] Dec, [facility] [address] [id number] [address] [place] [address], [place] [address] Nov, [facility] [address] [id number] [address] [place] [address], [place] [address] Nov, [facility] [address] [id number] [address] [place] [address], [place] [address] Nov, [facility] [address] [id number] [address] [place] [address], [place] [address] Nov, [facility] [address] [id number] [address] [place] [address] Nov, [facility] [address] [id number] [address] [place] [address], [place] [address] Nov, [facility] [address] [id number] [address] [place] [address], [place] [address] October, [facility] [address] [id number] [address] [place] [address], [place] [address] October, [facility] [address] [id number] [address] [place] [address], [place] [address] October, [facility] [address] [id number] [address] [place] [address], [place] [address] October, [facility] [address] [id number] [address] [place] [address], [place] [address] October, [facility] [address] [id number] [address] [place] [address], [place] [address] Sep, [facility] [address] [id number] [address] [place] [address], [place] [address] Sep, [facility] [address] [id number] [address] [place] [address], [place] [address] Sep, [facility] [address] [id number] [address] [place] [address], [place] [address] Sep, [facility] [address] [id number] [address] [place] [address], [place] [address] Sep, [facility] [address] [id number] [address] [place] [address], [place] [address] Aug, [facility] [address] [id number] [address] [place] [address], [place] [address] Aug, [facility] [address] [id number] [address] [place] [address], [place] [address] Aug, [facility] [address] [id number] [address] [place] [address], [place] [address] Jul, [facility] [address] [id number] [address] [place] [address], [place] [address] Jul, 2012 [facility] [address] [id number] [address] [place] [address], [place] [address] Jul, 2012 [facility] [address] [id number] [address] [place] [address], [place] [id number] 08 Jul, 2012 [facility] [address] [id number] [address] [place] [address], [place] [id number] Jul, [facility] [address] [id number] [address] [place] [address], [place] [id number] 05 Jul, 2012 [facility] [address] [id number] [address] [place] [address], [place] [id number] Jun, [facility] [address] [id number] [address] [place] [address], [place] [address] Apr, [facility] [address] [id number] [address] [place] [id number] Apr, [facility] [address] [id number] [address] [place] [phone] Apr, [facility] [address] [id number] [address] [place] [phone] Apr, [facility] [address] [id number] [address] [place] [phone] Mar, [facility] [address] [id number] [address] [place] [phone] Mar, [facility] [address] [id number] [address] [place] [phone] Mar, [facility] [address] [id number] [address] [place] [id number] Mar, [facility] [address] [id number] [address] [place] [id number] Mar, [facility] [address] [id number] [address] [place] [phone] Feb, [facility] [address] [id number] [address] [place] [phone] Jan, [facility] [address] [id number] [address] [place] [phone] Jan, [facility] [address] [id number] [address] [place] [phone] Jan, [facility] [address] [id number] [address] [place] [id number] Dec, [facility] [address] [id number] [address] [place] [phone] Nov, [facility] [address] [id number] [address] [place] [phone] Nov, [facility] [address] [id number] [address] [place] [id number] Nov, [facility] [address] [id number] [address] [place] [phone] Nov, [facility] [address] [id number] [address] [place] [phone] Nov, [facility] [address] [id number] [address] [place] [phone] October, [facility] [address] [id number] [address] [place] [phone] October, [facility] [address] [id number] [address] [place] [phone] October, [facility] [address] [id number] [address] [place] [phone] October, [facility] [address] [id number] [address] [place] [phone] October, IMMUNIZATIONS No Known Immunizations SOCIAL HISTORY Never Assessed REASON FOR VISIT knee exercises PLAN OF CARE Activity Details Follow Up 1 Week. Reason: VITAL SIGNS MEDICATIONS Unknown Medications RESULTS [...]
--- OUTSIDE RECORDS SUMMARY | 2020-01-25 07:59 | XMS REPORT ---
Author Author Velma ACOSTA Organization [facility] Address [address] [place] [address] Care Team Providers Care Hardware Installation Coordinator Name Role Phone SRIKANTH ACOSTA Unavailable PROBLEMS Type Condition ICD9-CM Code [id number] Code Onset Dates Condition S tatus SNOMED Code Problem Hyperparathyroidism E21.3 Active 56460111 Problem Mood disorder F39 Active 943319 05 Problem Arthritis M19.90 Active 3683799 Problem Primary insomnia F51.01 Active 397 2004 Problem Myalgia M79.1 Active 19239209 Problem Hypercholesteremia E78.0 Active 1 0344570 Problem Primary osteoarthritis of left knee M17.12 Active [id number] Problem Chronic kidney disease, stage 4 (severe) N18.4 Active 558606286 Problem 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 Active 47363700 Problem Corns L84 Active 721681342 Problem BPV (benign positional vertigo), bilateral H81.13 Active 997560988 Problem 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 Active 74158423 ALLERGIES No Information ENCOUNTERS Encounter Location Date Diagnosis [facility] [address] [facility] [id number] [address] [place] [phone] Apr, [facility] [address] [facility] [id number] [address] [place] [id number] Apr, Arthritis M19.90 [facility] [address] [facility] [id number] [address] [place] [id number] Apr, Exercise counseling Z71.82 [facility] [address] [facility] [id number] [address] [place] [phone] Apr, Exercise counseling Z71.82 [facility] [address] [facility] [id number] [address] [place] [id number] Apr, Primary osteoarthritis of le ft knee M17.12 [facility] [address] [facility] [id number] [address] [place] [phone] Apr, Labyrinthitis of left ear H8 3.02 [facility] [address] [place] [id number] [address] [place] [id number] 30 Mar, 2018 Arthritis M19.90 [facility] [address] [place] [id number] [address] [place] [id number] Mar, [facility] [address] [place] [id number] [place] [id number] Mar, Chronic kidney disease, stag e 4 (severe) N18.4 [place] [address] [place] [id number] [place] [phone] Mar, Chronic kidney disease, stag e 4 (severe) N18.4 [place] [address] [place] [id number] [place] [phone] Mar, Labyrinthitis of left ear H8 3.02 [facility] [address] [place] [id number] [address] [place] [id number] Mar, Chronic kidney disease, stag e 4 (severe) N18.4 ; Knee pain, left anterior M25.562 ; 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 and Encounter for immunization Z23 [facility] [address] [place] [id number] [address] [place] [id number] Mar, Arthritis M19.90 [facility] [address] [place] [id number] [address] [place] [phone] Feb, Labyrinthitis of left ear H8 3.02 [facility] [address] [place] [id number] [place] [id number] Feb, Arthritis M19.90 [facility] [address] [place] [id number] [address] [place] [phone] Jan, Labyrinthitis of left ear H8 3.02 [facility] [id number] [place] [phone] Jan, Arthritis M19.90 [place] [address] [place] [id number] [place] [id number] Dec, Labyrinthitis of left ear H8 3.02 [place] [address] [place] [id number] [place] [phone] Nov, Arthritis M19.90 [place] [address] [place] [id number] [place] [phone] Nov, Labyrinthitis of left ear H8 3.02 [place] [address] [address] Nov, BMI 40.0-44.9, adult Z68.41 ; Chronic kidney disease, stage 4 (severe) N18.4 and Acute right-sided thoracic back pain M54.6 [place] [address] [address] October, Labyrinthitis of left ear H8 3.02 and Arthritis M19.90 [place] [address] [address] Sep, BPV (benign positional verti go), bilateral H81.13 ; Dysfunction of left eustachian tube H69.82 and BMI 40.0-44.9, adult Z68.41 [place] [address] [address] Sep, Labyrinthitis of left ear H8 3.02 and Arthritis M19.90 [place] [address] [id number] Sep, [place] [address] [address] Sep, [place] [address] [place] [id number] [place] [id number] Sep, Chronic kidney disease, stag e 4 (severe) N18.4 [facility] [address] [facility] [id number] [address] [place] [phone] Sep, Chronic kidney disease, stag e 4 (severe) N18.4 [facility] [address] [id number] [address] [place] [id number] Aug, Labyrinthitis of left ear H8 3.02 and Arthritis M19.90 [facility] [address] [id number] [address] [place] [phone] Aug, [facility] [address] [id number] [address] [place] [phone] Jul, [facility] [address] [facility] [id number] [address] [place] [id number] Jul, Arthritis M19.90 and Labyrin thitis of left ear H83.02 [facility] [address] [facility] [id number] [address] [place] [phone] Jul, [facility] [address] [facility] [id number] [address] [place] [phone] Jun, [facility] [address] [facility] [id number] [address] [place] [phone] Jun, Arthritis M19.90 and Labyrin thitis of left ear H83.02 [facility] [address] [facility] [id number] [address] [place] [phone] Jun, Pre-op evaluation Z01.818 ; BMI 40.0-44.9, adult Z68.41 and Encounter for immunization Z23 [facility] [address] [facility] [id number] [address] [place] [phone] May, Arthritis M19.90 and Labyrin thitis of left ear H83.02 [facility] [address] [facility] [id number] [address] [place] [phone] Apr, Labyrinthitis of left ear H8 3.02 [facility] [address] [place] [id number] [address] [place] [id number] Apr, Arthritis M19.90 and Labyrin thitis of left ear H83.02 [place] [address] [facility] [id number] [address] [place] [id number] 10 Mar, 2017 Arthritis M19.90 and Labyrin thitis of left ear H83.02 [place] [address] [facility] [id number] [address] [place] [phone] Mar, Chronic kidney disease, stag e 4 (severe) N18.4 [place] [address] [facility] [id number] [address] [place] [phone] Feb, Arthritis M19.90 and Labyrin thitis of left ear H83.02 [place] [address] [facility] [id number] [address] [place] [phone] Jan, Labyrinthitis of left ear H8 3.02 and 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 [place] [address] [facility] [id number] [address] [place] [phone] Dec, Arthritis M19.90 [place] [address] [facility] [id number] [address] [place] [phone] Dec, BPV (benign positional verti go), bilateral H81.13 [place] [address] [facility] [id number] [address] [place] [phone] Dec, [place] [address] [facility] [id number] [address] [place] [phone] Dec, [place] [address] [facility] [id number] [address] [place] [phone] Dec, [place] [address] [facility] [id number] [address] [place] [phone] Nov, Arthritis M19.90 and Deficie ncy of other specified B group vitamins E53.8 [place] [address] [facility] [id number] [address] [place] [id number] Nov, Arthritis M19.90 [facility] [address] [facility] [id number] [address] [place] [phone] Nov, Hyperparathyroidism E21.3 [facility] [address] [facility] [id number] [address] [place] [id number] October, [facility] [address] [facility] [id number] [address] [place] [phone] October, Hyperparathyroidism E21.3 [facility] [address] [facility] [id number] [address] [place] [phone] October, [facility] [address] [facility] [id number] [address] [place] [phone] October, Renal insufficiency N28.9 an d Hyperparathyroidism E21.3 [facility] [address] [facility] [id number] [address] [place] [phone] October, [facility] [address] [facility] [id number] [address] [place] [phone] October, Renal insufficiency N28.9 an d Hyperparathyroidism E21.3 [facility] [address] [facility] [id number] [address] [place] [phone] October, Arthritis M19.90 [facility] [address] [facility] [id number] [address] [place] [id number] Sep, [facility] [address] [place] [id number] [address] [place] [id number] Sep, Lumbar neuritis M54.16 ; Tho racic abscess J86.9 and 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 [facility] [address] [facility] [id number] [address] [place] [phone] Sep, [facility] [address] [facility] [id number] [address] [place] [id number] Aug, Arthritis M19.90 [facility] [address] [facility] [id number] [address] [place] [phone] Aug, Hyperparathyroidism E21.3 [facility] [address] [facility] [id number] [address] [place] [phone] Aug, Hyperparathyroidism E21.3 [facility] [address] [facility] [id number] [address] [place] [id number] Aug, Arthritis M19.90 [facility] [address] [facility] [id number] [address] [place] [phone] Jul, Mass of throat R22.1 [facility] [address] [facility] [id number] [address] [place] [phone] Jul, [facility] [address] [place] [id number] [address] [place] [phone] Jul, Arthritis M19.90 [facility] [address] [place] [id number] [address] [place] [id number] Jun, Arthritis M19.90 [facility] [address] [place] [id number] [address] [place] [phone] Jun, [facility] [address] [facility] [id number] [address] [place] [id number] Jun, Renal insufficiency N28.9 an d 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 [facility] [address] [facility] [id number] [address] [place] [id number] 05 Jun, 2016 Medicare welcome exam Z00.00 ; Encounter for immunization Z23 ; Arthritis M19.90 ; Medicare annual wellness visit, initial Z00.00 ; Medicare annual wellness visit, subsequent Z00.00 and 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 [facility] [address] [facility] [id number] [address] [place] [phone] May, Renal insufficiency N28.9 an d 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 [facility] [address] [facility] [id number] [address] [place] [phone] May, Renal insufficiency N28.9 [facility] [address] [facility] [id number] [address] [place] [phone] May, Renal insufficiency N28.9 [facility] [address] [id number] [address] [place] [id number] 14 May, 2016 [facility] [address] [facility] [id number] [address] [place] [id number] 16 Apr, 2016 [facility] [address] [facility] [id number] [address] [place] [id number] 16 Apr, 2016 [facility] [address] [facility] [id number] [address] [place] [id number] 14 Apr, 2016 Mass of throat R22.1 [facility] [address] [id number] [address] [place] [phone] Apr, [facility] [address] [facility] [id number] [address] [place] [id number] 10 Apr, 2016 Mass of throat R22.1 [facility] [address] [facility] [id number] [address] [place] [id number] 04 Apr, 2016 Mass of throat R22.1 [facility] [address] [facility] [id number] [address] [place] [phone] Mar, [facility] [address] [facility] [id number] [address] [place] [phone] Mar, [facility] [address] [facility] [id number] [address] [place] [phone] Mar, [facility] [address] [facility] [id number] [address] [place] [id number] 24 Mar, 2016 Parathyroid abnormality E21. 5 and Encounter for immunization Z23 [facility] [address] [facility] [id number] [address] [place] [id number] 17 Mar, 2016 [facility] [address] [facility] [id number] [address] [place] [phone] Mar, [facility] [address] [facility] [id number] [address] [place] [phone] Feb, Renal insufficiency N28.9 an d Hyperparathyroidism E21.3 [facility] [address] [facility] [id number] [address] [place] [id number] 19 Feb, 2016 [facility] [address] [facility] [id number] [address] [place] [id number] 15 Feb, 2016 Renal insufficiency N28.9 an d Hyperparathyroidism E21.3 [facility] [address] [facility] [id number] [address] [place] [phone] 14 Feb, 2016 [facility] [address] [facility] [id number] [address] [place] [phone] Feb, [place] [address] [address] Feb, [place] [address] [place] [id number] [address] [place] [phone] Jan, [place] [address] [address] Jan, Arthritis M19.90 ; Lumbago w ith sciatica, right side M54.41 and Other chronic pain G89.29 [place] [address] [address] Jan, [place] [address] [place] [id number] [address] [place] [phone] Dec, Arthritis M19.90 ; Lumbago w ith sciatica, right side M54.41 and Other chronic pain G89.29 [place] [id number] [place] [id number] 16 Nov, 2015 Deficiency of other specifie d B group vitamins E53.8 ; Primary insomnia F51.01 ; Mood disorder F39 and Lumbago with sciatica, right side M54.41 [facility] [address] [place] [id number] [address] [place] [phone] Nov, Hyperparathyroidism E21.3 [place] [address] [place] [id number] [address] [place] [phone] Nov, Unspecified kidney failure N 19 and Hyperparathyroidism E21.3 [facility] [address] [address] October, Hyperparathyroidism E21.3 [facility] [address] [place] [id number] [place] [id number] October, [facility] [address] [address] October, Hyperparathyroidism E21.3 [facility] [address] [address] October, Hyperparathyroidism E21.3 [facility] [address] [address] Sep, Hyperparathyroidism E21.3 ; Hypercholesterolemia E78.0 and Arthritis M19.90 [place] [address] [address] Aug, [facility] [address] [address] Aug, Deficiency of other specifie d B group vitamins E53.8 [place] [address] [address] Aug, [place] [address] [address] Jul, Urinary frequency R35.0 [place] [address] [address] Jul, Urinary frequency R35.0 [facility] [address] [address] Jul, [facility] [address] [address] Jul, [facility] [address] [address] Jun, Pain in left knee M25.562 [facility] [address] [id number] [address] [place] [id number] Jun, [facility] [address] [facility] [id number] [address] [place] [id number] May, Swelling of left knee joint M25.462 [facility] [address] [facility] [id number] [address] [place] [phone] May, [facility] [address] [facility] [id number] [address] [place] [phone] May, [facility] [address] [facility] [id number] [address] [place] [phone] May, [facility] [address] [facility] [id number] [address] [place] [id number] Apr, Renal insufficiency N28.9 an d Chronic kidney disease, stage 4 (severe) N18.4 [facility] [address] [facility] [id number] [address] [place] [phone] Apr, Unspecified kidney failure N 19 [facility] [address] [facility] [id number] [address] [place] [phone] Apr, Unspecified kidney failure N 19 [facility] [address] [facility] [id number] [address] [place] [id number] Apr, [facility] [address] [facility] [id number] [address] [place] [id number] Apr, Hyperparathyroidism, unspeci fied 252.00 [facility] [address] [facility] [id number] [address] [place] [phone] Apr, [facility] [address] [facility] [id number] [address] [place] [phone] Mar, [facility] [address] [facility] [id number] [address] [place] [phone] Mar, [facility] [address] [facility] [id number] [address] [place] [id number] Mar, Hyperparathyroidism, unspeci fied 252.00 [facility] [address] [id number] [address] [place] [id number] Feb, [facility] [address] [id number] [address] [place] [phone] Feb, Otalgia 388.70 [facility] [address] [facility] [id number] [address] [place] [phone] Feb, [facility] [address] [id number] [address] [place] [phone] Feb, [facility] [address] [id number] [address] [place] [id number] Jan, [facility] [address] [facility] [id number] [address] [place] [id number] Jan, Hyperparathyroidism, unspeci fied 252.00 [facility] [address] [facility] [id number] [address] [place] [id number] Jan, [facility] [address] [facility] [id number] [address] [place] [id number] Jan, Other B-complex deficiencies 266.2 and Hyperparathyroidism, unspecified 252.00 [facility] [address] [facility] [id number] [address] [place] [id number] Jan, [facility] [address] [facility] [id number] [address] [place] [phone] Jan, [facility] [address] [facility] [id number] [address] [place] [phone] Jan, [facility] [address] [facility] [id number] [address] [place] [phone] Dec, [facility] [address] [facility] [id number] [address] [place] [id number] Dec, [facility] [address] [facility] [id number] [address] [place] [phone] Dec, [facility] [address] [id number] [address] [place] [id number] 15 Nov, 2014 Routine check-up V70.0 and P re-op exam V72.84 [facility] [address] [id number] [address] [place] [id number] 12 Nov, 2014 [facility] [address] [id number] [address] [place] [id number] Nov, [facility] [address] [id number] [address] [place] [id number] October, [facility] [address] [id number] [address] [place] [id number] October, Other B-complex deficiencies 266.2 [facility] [address] [id number] [address] [place] [id number] October, [facility] [address] [id number] [address] [place] [id number] 14 Sep, 2014 [facility] [address] [id number] [address] [place] [id number] Sep, [facility] [address] [id number] [address] [place] [id number] Aug, [facility] [address] [id number] [address] [place] [id number] Aug, [facility] [address] [id number] [address] [place] [id number] 17 Aug, 2014 [facility] [address] [id number] [address] [place] [id number] 17 Aug, 2014 [facility] [address] [id number] [address] [place] [id number] Aug, [facility] [address] [id number] [address] [place] [id number] Aug, [facility] [address] [id number] [address] [place] [id number] 18 Jul, 2014 [facility] [address] [id number] [address] [place] [address], [place] [id number] Jul, 2014 [facility] [address] [id number] [address] [place] [address], [place] [id number] Jul, 2014 [facility] [address] [id number] [address] [place] [address], [place] [id number] Jul, 2014 [facility] [address] [id number] [address] [place] [address], [place] [id number] Jul, 2014 [facility] [address] [id number] [address] [place] [address], [place] [id number] Jul, 2014 [facility] [address] [id number] [address] [place] [address], [place] [id number] Jul, 2014 [facility] [address] [id number] [address] [place] [address], [place] [id number] Jul, 2014 [facility] [address] [id number] [address] [place] [address], [place] [id number] Jul, 2014 [facility] [address] [id number] [address] [place] [address], [place] [id number] Jul, 2014 [facility] [address] [id number] [address] [place] [address], [place] [id number] Jul, 2014 [facility] [address] [id number] [address] [place] [address], [place] [id number] Jul, 2014 [facility] [address] [id number] [address] [place] [address], [place] [id number] Jul, 2014 [facility] [address] [id number] [address] [place] [address], [place] [id number] Jul, 2014 [facility] [address] [id number] [address] [place] [address], [place] [id number] Jun, [facility] [address] [id number] [address] [place] [address], [place] [id number] Jun, [facility] [address] [id number] [address] [place] [address], [place] [id number] 30 Jun, 2014 [facility] [address] [id number] [address] [place], [place] [address], [place] [address] Jun, [facility] [address] [id number] [address] [place] [address], [place] [address] Jun, [facility] [address] [id number] [address] [place] [address], [place] [address] Jun, [facility] [address] [id number] [address] [place] [address], [place] [address] Jun, [facility] [address] [id number] [address] [place] [address], [place] [address] Jun, [facility] [address] [id number] [address] [place] [address], [place] [address] Jun, [facility] [address] [id number] [address] [place] [address], [place] [address] Jun, [facility] [address] [id number] [address] [place] [address], [place] [address] Jun, [facility] [address] [id number] [address] [place] [address], [place] [address] Jun, [facility] [address] [id number] [address] [place] [address], [place] [address] Jun, [facility] [address] [id number] [address] [place] [address], [place] [address] Jun, [facility] [address] [id number] [address] [place] [address], [place] [address] May, [facility] [address] [id number] [address] [place] [address], [place] [address] May, [facility] [address] [id number] [address] [place] [address], [place] [address] May, [facility] [address] [id number] [address] [place] [address], [place] [address] May, [facility] [address] [id number] [address] [place] [address], [place] [address] Apr, [facility] [address] [id number] [address] [place] [address], [place] [address] Apr, [facility] [address] [id number] [address] [place] [address], [place] [address] Apr, [facility] [address] [id number] [address] [place] [address], [place] [address] Apr, [facility] [address] [id number] [address] [place] [address], [place] [address] Apr, [facility] [address] [id number] [address] [place] [address], [place] [address] Apr, [facility] [address] [id number] [address] [place] [address], [place] [address] Mar, [facility] [address] [id number] [address] [place] [address], [place] [address] Mar, [facility] [address] [id number] [address] [place] [address], [place] [address] Mar, [facility] [address] [id number] [address] [place] [id number] Mar, [facility] [address] [id number] [address] [place] [id number] Mar, [facility] [address] [id number] [address] [place] [id number] 15 Mar, 2014 [facility] [address] [id number] [address] [place] [address], [place] [address] Mar, [facility] [address] [id number] [address] [place] [address], [place] [address] Mar, [facility] [address] [id number] [address] [place] [id number] Mar, [facility] [address] [id number] [address] [place] [id number] 07 Mar, 2014 [facility] [address] [id number] [address] [place] [address], [place] [address] 07 Mar, 2014 [facility] [address] [id number] [address] [place] [address], [place] [address] 07 Mar, 2014 [facility] [address] [id number] [address] [place] [address], [place] [address] Mar, [facility] [address] [id number] [address] [place] [address], [place] [address] 26 Feb, 2013 [facility] [address] [id number] [address] [place] [address], [place] [address] 26 Feb, 2014 [facility] [address] [id number] [address] [place] [address], [place] [address] 23 Feb, 2014 [facility] [address] [id number] [address] [place] [address], [place] [address] 23 Feb, 2014 [facility] [address] [id number] [address] [place] [address], [place] [address] 19 Feb, 2014 [facility] [address] [id number] [address] [place] [address], [place] [address] 19 Feb, 2014 [facility] [address] [id number] [address] [place] [address], [place] [address] 13 Feb, 2014 [facility] [address] [id number] [address] [place] [address], [place] [address] 13 Feb, 2014 [facility] [address] [id number] [address] [place] [address], [place] [address] 12 Feb, 2014 [facility] [address] [id number] [address] [place] [address], [place] [address] 12 Feb, 2014 [facility] [address] [id number] [address] [place] [address], [place] [address] 15 Jan, 2014 [facility] [address] [id number] [address] [place] [address], [place] [address] 15 Jan, 2014 [facility] [address] [id number] [facility] [place] [address] Dec, [facility] [address] [id number] [facility] [place] [address] Dec, [facility] [address] [id number] [facility] [place] [address] Dec, [facility] [address] [id number] [facility] [place] [address] Dec, [facility] [address] [id number] [facility] [place] [address] Dec, [facility] [address] [id number] [facility] [place] [address] Dec, [facility] [address] [id number] [address] [place] [address], [place] [address] Nov, [facility] [address] [id number] [address] [place] [address], [place] [address] Nov, [facility] [address] [id number] [address] [place] [address], [place] [address] Nov, [facility] [address] [id number] [address] [place] [address], [place] [address] Nov, [facility] [address] [id number] [address] [place] [address], [place] [address] October, [facility] [address] [id number] [address] [place] [address], [place] [address] October, [facility] [address] [id number] [address] [place] [address], [place] [address] October, [facility] [address] [id number] [address] [place] [address], [place] [address] October, [facility] [address] [id number] [address] [place] [address], [place] [address] October, [facility] [address] [id number] [address] [place] [address], [place] [address] October, [facility] [address] [id number] [facility] [place] [address] October, [facility] [address] [id number] [facility] [place] [address] October, [facility] [address] [id number] [facility] [place] [address] October, [facility] [address] [id number] [address] [place] [address], [place] [address] October, [facility] [address] [id number] [address] [place] [address], [place] [address] October, [facility] [address] [id number] [address] [place] [address], [place] [address] October, [facility] [address] [id number] [address] [place] [address], [place] [address] October, [facility] [address] [id number] [address] [place] [address], [place] [address] October, [facility] [address] [id number] [address] [place] [address], [place] [address] October, [facility] [address] [id number] [address] [place] [address], [place] [address] October, [facility] [address] [id number] [address] [place] [address], [place] [address] Sep, [facility] [address] [id number] [address] [place] [address], [place] [address] Sep, [facility] [address] [id number] [address] [place] [address], [place] [address] Sep, [facility] [address] [id number] [address] [place] [address], [place] [address] Sep, [facility] [address] [id number] [address] [place] [address], [place] [address] Sep, [facility] [address] [id number] [address] [place] [address], [place] [address] 02 Sep, 2013 [facility] [address] [id number] [address] [place] [address], [place] [address] Aug, [facility] [address] [id number] [address] [place] [address], [place] [address] Aug, [facility] [address] [id number] [address] [place] [address], [place] [address] Aug, [facility] [address] [id number] [address] [place] [address], [place] [address] Aug, [facility] [address] [id number] [address] [place] [address], [place] [address] Aug, [facility] [address] [id number] [address] [place] [address], [place] [address] Aug, [facility] [address] [id number] [address] [place] [address], [place] [address] Jul, [facility] [address] [id number] [address] [place] [address], [place] [address] Jul, [facility] [address] [id number] [address] [place] [address], [place] [address] Jul, [facility] [address] [id number] [address] [place] [address], [place] [address] Jul, [facility] [address] [id number] [address] [place] [address], [place] [address] Jun, [facility] [address] [id number] [address] [place] [address], [place] [address] Jun, [facility] [address] [id number] [address] [place] [address], [place] [address] May, [facility] [address] [id number] [address] [place] [address], [place] [address] May, [facility] [address] [id number] [address] [place] [address], [place] [address] May, [facility] [address] [id number] [address] [place] [address], [place] [address] May, [facility] [address] [id number] [address] [place] [address], [place] [address] May, [facility] [address] [id number] [address] [place] [address] Apr, [facility] [address] [id number] [address] [place] [address], [place] [address] Apr, [facility] [address] [id number] [address] [place] [address], [place] [address] Apr, [facility] [address] [id number] [address] [place] [address], [place] [address] Apr, [facility] [address] [id number] [address] [place] [address], [place] [address] Apr, [facility] [address] [id number] [address] [place] [id number] Apr, [facility] [address] [id number] [address] [place] [address], [place] [address] 15 Mar, 2013 [facility] [address] [id number] [address] [place] [id number] 15 Mar, 2013 [facility] [address] [id number] [address] [place] [id number] 14 Mar, 2013 [facility] [address] [id number] [address] [place] [id number] 14 Mar, 2013 [facility] [address] [id number] [address] [place] [id number] 11 Mar, 2013 [facility] [address] [id number] [address] [place] [id number] 11 Mar, 2013 [facility] [address] [id number] [address] [place] [id number] 23 Feb, 2013 [facility] [address] [id number] [address] [place] [id number] Feb, [facility] [address] [id number] [address] [place] [address], [place] [address] Feb, [facility] [address] [id number] [address] [place] [address], [place] [address] Jan, [facility] [address] [id number] [address] [place] [address], [place] [address] Jan, [facility] [address] [id number] [address] [place] [address], [place] [address] Jan, [facility] [address] [id number] [address] [place] [address], [place] [address] Jan, [facility] [address] [id number] [address] [place] [address], [place] [address] Jan, [facility] [address] [id number] [address] [place] [address], [place] [address] Jan, [facility] [address] [id number] [address] [place] [address], [place] [address] Dec, [facility] [address] [id number] [address] [place] [address], [place] [address] Dec, [facility] [address] [id number] [address] [place] [address], [place] [address] Dec, [facility] [address] [id number] [address] [place] [address], [place] [address] Dec, [facility] [address] [id number] [address] [place] [address], [place] [address] Dec, [facility] [address] [id number] [address] [place] [address], [place] [address] Dec, [facility] [address] [id number] [address] [place] [address], [place] [address] Nov, [facility] [address] [id number] [address] [place] [address], [place] [address] Nov, [facility] [address] [id number] [address] [place] [address], [place] [address] 18 Nov, 2012 [facility] [address] [id number] [address] [place] [address], [place] [address] 13 Nov, 2012 [facility] [address] [id number] [address] [place] [address], [place] [address] Nov, [facility] [address] [id number] [address] [place] [address], [place] [address] Nov, [facility] [address] [id number] [address] [place] [address], [place] [address] October, [facility] [address] [id number] [address] [place] [address], [place] [address] October, [facility] [address] [id number] [address] [place] [address], [place] [address] October, [facility] [address] [id number] [address] [place] [address], [place] [address] October, [facility] [address] [id number] [address] [place] [address], [place] [address] October, [facility] [address] [id number] [address] [place] [address], [place] [address] 30 Sep, 2012 [facility] [address] [id number] [address] [place] [address], [place] [address] Sep, [facility] [address] [id number] [address] [place] [address], [place] [address] Sep, [facility] [address] [id number] [address] [place] [address], [place] [address] 18 Sep, 2012 [facility] [address] [id number] [address] [place] [address], [place] [address] 09 Sep, 2012 [facility] [address] [id number] [address] [place] [address], [place] [address] 26 Aug, 2012 [facility] [address] [id number] [address] [place] [address], [place] [address] 07 Aug, 2012 [facility] [address] [id number] [address] [place] [address], [place] [address] 04 Aug, 2012 [facility] [address] [id number] [address] [place] [address], [place] [address] Jul, [facility] [address] [id number] [address] [place] [address], [place] [address] 20 Jul, 2012 [facility] [address] [id number] [address] [place] [address], [place] [address] Jul, [facility] [address] [id number] [address] [place] [address], [place] [address] 08 Jul, 2012 [facility] [address] [id number] [address] [place] [address], [place] [address] 06 Jul, 2012 [facility] [address] [id number] [address] [place] [address], [place] [address] 05 Jul, 2012 [facility] [address] [id number] [address] [place] [address], [place] [address] 15 Jun, 2012 [facility] [address] [id number] [address] [place] [address], [place] [address] Apr, [facility] [address] [id number] [address] [place] [address], [place] [address] 16 Apr, 2012 [facility] [address] [id number] [address] [place] [address], [place] [address] Apr, [facility] [address] [id number] [address] [place] [address], [place] [address] Apr, [facility] [address] [id number] [address] [place] [address], [place] [id number] Mar, [facility] [address] [id number] [address] [place] [address], [place] [address] Mar, [facility] [address] [id number] [address] [place] [address], [place] [address] Mar, [facility] [address] [id number] [address] [place] [address], [place] [address] Mar, [facility] [address] [id number] [address] [place] [address], [place] [id number] Mar, [facility] [address] [id number] [address] [place] [address], [place] [id number] Feb, [facility] [address] [id number] [address] [place] [address], [place] [id number] Jan, [facility] [address] [id number] [address] [place] [address], [place] [id number] Jan, [facility] [address] [id number] [address] [place] [address], [place] [id number] Jan, [facility] [address] [id number] [address] [place] [address], [place] [id number] Dec, [facility] [address] [id number] [address] [place] [address], [place] [id number] Nov, [facility] [address] [id number] [address] [place] [address], [place] [id number] Nov, [facility] [address] [id number] [address] [place] [address], [place] [id number] Nov, [facility] [address] [id number] [address] [place] [address], [place] [id number] Nov, [facility] [address] [id number] [address] [place] [address], [place] [id number] Nov, [facility] [address] [id number] [address] [place] [address], [place] [id number] October, [facility] [address] [id number] [address] [place] [address], [place] [id number] October, [facility] [address] [id number] [address] [place] [address], [place] [id number] October, [facility] [address] [id number] [address] [place] [address], [place] [id number] October, [facility] [address] [facility] [id number] [address] [place] [address] October, IMMUNIZATIONS No Known Immunizations SOCIAL HISTORY Never Assessed REASON FOR VISIT knee pain PLAN OF CARE Activity Details Follow Up 2 - 3 Days Reason: VITAL SIGNS MEDICATIONS Unknown Medications RESULTS [...]
[2020-01-25] MEDS ORDERED: SCOPOLAMINE 1.5 MG (TRANSDERM-SCOP) PATCH TOP ONE (08:00)
[2020-01-25] MEDS ORDERED: FAMOTIDINE 20MG/2ML IV (PEPCID) IV ONE (08:00)
[2020-01-25] MEDS ORDERED: ONDANSETRON 4 MG/2 ML (SDV) Z0FRAN IV ONE (08:00)
--- OUTSIDE RECORDS SUMMARY | 2020-01-25 08:00 | XMS REPORT ---
Author Author Velma CORDERO Organization [facility] Address [address] [place] [address] Care Team Providers Care Mathematics Education Professor Name Role Phone STEPHAN CORDERO Unavailable PROBLEMS Type Condition ICD9-CM Code [id number] Code Onset Dates Condition S tatus SNOMED Code Problem Hypercholesteremia E78.0 Active 1 5213471 Problem Arthritis M19.90 Active 0994003 Problem Hyperparathyroidism E21.3 Active 82062691 Problem Primary insomnia F51.01 Active 397 2004 Problem Myalgia M79.1 Active 91346516 Problem Chronic kidney disease, stage 4 (severe) N18.4 Active 159156430 Problem BPV (benign positional vertigo), bilateral H81.13 Active 174340473 Problem Corns L84 Active 147930282 Problem Mood disorder F39 Active 159679 05 Problem 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 Active 77820839 Problem 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 Active 01543722 ALLERGIES No Information ENCOUNTERS Encounter Location Date Diagnosis [place] [id number] [facility] [id number] [address] [place] [phone] 08 Apr, 2018 [facility] [address] [place] [id number] [address] [place] [phone] 30 Mar, 2018 Arthritis M19.90 [facility] [address] [facility] [id number] [address] [place] [phone] Mar, [facility] [address] [facility] [id number] [address] [place] [phone] Mar, Chronic kidney disease, stag e 4 (severe) N18.4 [facility] [address] [facility] [id number] [address] [place] [address] Mar, Chronic kidney disease, stag e 4 (severe) N18.4 [place] [address] [address] Mar, Labyrinthitis of left ear H8 3.02 [place] [address] [address] Mar, Chronic kidney disease, stag e 4 (severe) N18.4 ; Knee pain, left anterior M25.562 ; 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 and Encounter for immunization Z23 [place] [address] [address] Mar, Arthritis M19.90 [place] [address] [address] Feb, Labyrinthitis of left ear H8 3.02 [place] [address] [address] Feb, Arthritis M19.90 [place] [address] [address] Jan, Labyrinthitis of left ear H8 3.02 [place] [address] [address] Jan, Arthritis M19.90 [place] [address] [address] Dec, Labyrinthitis of left ear H8 3.02 [place] [address] [address] Nov, Arthritis M19.90 [place] [address] [place] [id number] [place] [address] Nov, Labyrinthitis of left ear H8 3.02 [place] [address] [address] Nov, BMI 40.0-44.9, adult Z68.41 ; Chronic kidney disease, stage 4 (severe) N18.4 and Acute right-sided thoracic back pain M54.6 [facility] [address] [id number] [address] [place] [address] October, Labyrinthitis of left ear H8 3.02 and Arthritis M19.90 [facility] [address] [facility] [id number] [address] [place] [phone] Sep, BPV (benign positional verti go), bilateral H81.13 ; Dysfunction of left eustachian tube H69.82 and BMI 40.0-44.9, adult Z68.41 [facility] [address] [id number] [address] [place] [phone] Sep, Labyrinthitis of left ear H8 3.02 and Arthritis M19.90 [facility] [address] [id number] [address] [place] [phone] Sep, [place] [address] [place] [id number] [address] [place] [address] Sep, [facility] [address] [id number] [address] [place] [address] Sep, Chronic kidney disease, stag e 4 (severe) N18.4 [facility] [address] [id number] [address] [place] [address] Sep, Chronic kidney disease, stag e 4 (severe) N18.4 [facility] [address] [facility] [id number] [address] [place] [address] Aug, Labyrinthitis of left ear H8 3.02 and Arthritis M19.90 [facility] [address] [id number] [address] [place] [phone] Aug, [facility] [address] [id number] [address] [place] [phone] Jul, [facility] [address] [facility] [id number] [address] [place] [phone] Jul, Arthritis M19.90 and Labyrin thitis of left ear H83.02 [place] [address] [place] [id number] [address] [place] [phone] Jul, [place] [address] [place] [id number] [address] [place] [address] Jun, [place] [address] [place] [id number] [address] [place] [address] Jun, Arthritis M19.90 and Labyrin thitis of left ear H83.02 [place] [address] [place] [id number] [address] [place] [address] Jun, Pre-op evaluation Z01.818 ; BMI 40.0-44.9, adult Z68.41 and Encounter for immunization Z23 [place] [address] [place] [id number] [place] [address] May, Arthritis M19.90 and Labyrin thitis of left ear H83.02 [place] [address] [place] [id number] [address] [place] [address] Apr, Labyrinthitis of left ear H8 3.02 [place] [address] [address] Apr, Arthritis M19.90 and Labyrin thitis of left ear H83.02 [place] [address] [place] [id number] [address] [place] [address] Mar, Arthritis M19.90 and Labyrin thitis of left ear H83.02 [place] [address] [place] [id number] [address] [place] [address] Mar, Chronic kidney disease, stag e 4 (severe) N18.4 [place] [address] [place] [id number] [address] [place] [address] Feb, Arthritis M19.90 and Labyrin thitis of left ear H83.02 [place] [address] [place] [id number] [address] [place] [address] Jan, Labyrinthitis of left ear H8 3.02 and 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 [facility] [address] [id number] [address] [place] [address] Dec, Arthritis M19.90 [facility] [address] [facility] [id number] [address] [place] [address] Dec, BPV (benign positional verti go), bilateral H81.13 [facility] [address] [id number] [address] [place] [address] Dec, [facility] [address] [id number] [address] [place] [address] Dec, [facility] [address] [facility] [id number] [address] [place] [phone] Dec, [facility] [address] [facility] [id number] [address] [place] [address] Nov, Arthritis M19.90 and Deficie ncy of other specified B group vitamins E53.8 [facility] [address] [id number] [address] [place] [address] Nov, Arthritis M19.90 [facility] [address] [facility] [id number] [address] [place] [address] Nov, Hyperparathyroidism E21.3 [facility] [address] [facility] [id number] [address] [place] [address] October, [facility] [address] [facility] [id number] [address] [place] [phone] October, Hyperparathyroidism E21.3 [facility] [address] [facility] [id number] [address] [place] [address] October, [facility] [address] [facility] [id number] [address] [place] [address] October, Renal insufficiency N28.9 an d Hyperparathyroidism E21.3 [facility] [address] [facility] [id number] [address] [place] [address] October, [facility] [address] [place] [id number] [address] [place] [address] October, Renal insufficiency N28.9 an d Hyperparathyroidism E21.3 [facility] [address] [facility] [id number] [address] [place] [address] October, Arthritis M19.90 [facility] [address] [address] Sep, [facility] [address] [address] Sep, Lumbar neuritis M54.16 ; Tho racic abscess J86.9 and 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 [facility] [address] [place] [id number] [address] [place] [address] Sep, [facility] [address] [address] Aug, Arthritis M19.90 [facility] [address] [place] [id number] [address] [place] [address] Aug, Hyperparathyroidism E21.3 [facility] [address] [address] Aug, Hyperparathyroidism E21.3 [facility] [address] [address] Aug, Arthritis M19.90 [facility] [address] [place] [id number] [address] [place] [address] Jul, Mass of throat R22.1 [facility] [address] [address] Jul, [facility] [address] [place] [id number] [address] [place] [address] Jul, Arthritis M19.90 [facility] [address] [address] Jun, Arthritis M19.90 [facility] [address] [facility] [id number] [address] [place] [address] Jun, [facility] [address] [facility] [id number] [address] [place] [phone] Jun, Renal insufficiency N28.9 an d 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 [facility] [address] [facility] [id number] [address] [place] [address] 05 Jun, 2016 Medicare welcome exam Z00.00 ; Encounter for immunization Z23 ; Arthritis M19.90 ; Medicare annual wellness visit, initial Z00.00 ; Medicare annual wellness visit, subsequent Z00.00 and 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 [facility] [address] [facility] [id number] [address] [place] [phone] 29 May, 2016 Renal insufficiency N28.9 an d 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 [facility] [address] [facility] [id number] [address] [place] [address] May, Renal insufficiency N28.9 [facility] [address] [facility] [id number] [address] [place] [phone] May, Renal insufficiency N28.9 [facility] [address] [facility] [id number] [address] [place] [address] 14 May, 2016 [facility] [address] [facility] [id number] [address] [place] [phone] Apr, [facility] [address] [facility] [id number] [address] [place] [phone] Apr, [facility] [address] [facility] [id number] [address] [place] [address] 14 Apr, 2016 Mass of throat R22.1 [facility] [address] [facility] [id number] [address] [place] [phone] 10 Apr, 2016 [facility] [address] [facility] [id number] [address] [place] [id number] 10 Apr, 2016 Mass of throat R22.1 [facility] [address] [id number] [address] [place] [id number] 04 Apr, 2016 Mass of throat R22.1 [facility] [address] [id number] [address] [place] [id number] Mar, [facility] [address] [facility] [id number] [address] [place] [address] Mar, [facility] [address] [id number] [address] [place] [phone] Mar, [facility] [address] [facility] [id number] [address] [place] [phone] Mar, Parathyroid abnormality E21. 5 and Encounter for immunization Z23 [facility] [address] [id number] [address] [place] [address] Mar, [facility] [address] [facility] [id number] [address] [place] [phone] Mar, [facility] [address] [id number] [address] [place] [phone] 21 Feb, 2016 Renal insufficiency N28.9 an d Hyperparathyroidism E21.3 [facility] [address] [id number] [address] [place] [phone] 19 Feb, 2016 [facility] [address] [facility] [id number] [address] [place] [phone] 15 Feb, 2016 Renal insufficiency N28.9 an d Hyperparathyroidism E21.3 [facility] [address] [id number] [address] [place] [phone] 14 Feb, 2016 [facility] [address] [id number] [address] [place] [phone] 12 Feb, 2016 [facility] [address] [facility] [id number] [address] [place] [id number] 09 Feb, 2016 [facility] [address] [facility] [id number] [address] [place] [phone] Jan, [facility] [address] [facility] [id number] [address] [place] [address] Jan, Arthritis M19.90 ; Lumbago w ith sciatica, right side M54.41 and Other chronic pain G89.29 [facility] [address] [facility] [id number] [address] [place] [address] Jan, [place] [address] [place] [id number] [address] [place] [address] Dec, Arthritis M19.90 ; Lumbago w ith sciatica, right side M54.41 and Other chronic pain G89.29 [place] [address] [facility] [id number] [address] [place] [id number] 16 Nov, 2015 Deficiency of other specifie d B group vitamins E53.8 ; Primary insomnia F51.01 ; Mood disorder F39 and Lumbago with sciatica, right side M54.41 [place] [address] [place] [id number] [place] [address] Nov, Hyperparathyroidism E21.3 [place] [address] [place] [id number] [place] [address] Nov, Unspecified kidney failure N 19 and Hyperparathyroidism E21.3 [place] [address] [place] [id number] [place] [address] October, Hyperparathyroidism E21.3 [place] [address] [place] [id number] [place] [address] October, [facility] [address] [facility] [id number] [address] [place] [address] October, Hyperparathyroidism E21.3 [place] [address] [place] [id number] [place] [address] October, Hyperparathyroidism E21.3 [facility] [address] [place] [id number] [address] [place] [address] Sep, Hyperparathyroidism E21.3 ; Hypercholesterolemia E78.0 and Arthritis M19.90 [place] [address] [place] [id number] [place] [address] Aug, [facility] [address] [facility] [id number] [address] [place] [address] Aug, Deficiency of other specifie d B group vitamins E53.8 [facility] [address] [facility] [id number] [address] [place] [phone] Aug, [facility] [address] [facility] [id number] [address] [place] [phone] Jul, Urinary frequency R35.0 [facility] [address] [facility] [id number] [address] [place] [address] Jul, Urinary frequency R35.0 [facility] [address] [facility] [id number] [address] [place] [phone] Jul, [facility] [address] [place] [id number] [place] [id number] Jul, [facility] [address] [facility] [id number] [address] [place] [address] Jun, Pain in left knee M25.562 [facility] [address] [facility] [id number] [address] [place] [address] Jun, [facility] [address] [facility] [id number] [address] [place] [address] May, Swelling of left knee joint M25.462 [facility] [address] [facility] [id number] [address] [place] [address] May, [facility] [address] [facility] [id number] [address] [place] [phone] May, [facility] [address] [facility] [id number] [address] [place] [phone] May, [facility] [address] [facility] [id number] [address] [place] [phone] Apr, Renal insufficiency N28.9 an d Chronic kidney disease, stage 4 (severe) N18.4 [facility] [address] [facility] [id number] [address] [place] [phone] Apr, Unspecified kidney failure N 19 [facility] [address] [facility] [id number] [address] [place] [phone] Apr, Unspecified kidney failure N 19 [facility] [address] [facility] [id number] [address] [place] [address] Apr, [facility] [address] [facility] [id number] [address] [place] [address] Apr, Hyperparathyroidism, unspeci fied 252.00 [facility] [address] [facility] [id number] [address] [place] [phone] Apr, [facility] [address] [facility] [id number] [address] [place] [id number] Mar, [facility] [address] [facility] [id number] [address] [place] [address] Mar, [facility] [address] [facility] [id number] [address] [place] [address] Mar, Hyperparathyroidism, unspeci fied 252.00 [facility] [address] [facility] [id number] [address] [place] [phone] Feb, [facility] [address] [facility] [id number] [address] [place] [address] Feb, Otalgia 388.70 [facility] [address] [facility] [id number] [address] [place] [phone] Feb, [facility] [address] [facility] [id number] [address] [place] [phone] Feb, [facility] [address] [place] [id number] [address] [place] [phone] Jan, [facility] [address] [facility] [id number] [address] [place] [phone] Jan, Hyperparathyroidism, unspeci fied 252.00 [facility] [address] [id number] [address] [place] [address] Jan, [facility] [address] [id number] [address] [place] [phone] Jan, Other B-complex deficiencies 266.2 and Hyperparathyroidism, unspecified 252.00 [facility] [address] [id number] [address] [place] [phone] Jan, [facility] [address] [id number] [address] [place] [phone] Jan, [facility] [address] [id number] [address] [place] [phone] Jan, [facility] [address] [id number] [address] [place] [phone] Dec, [facility] [address] [id number] [address] [place] [phone] Dec, [facility] [address] [id number] [address] [place] [phone] Dec, [facility] [address] [id number] [address] [place] [phone] Nov, Routine check-up V70.0 and P re-op exam V72.84 [facility] [address] [id number] [address] [place] [phone] Nov, [facility] [address] [id number] [address] [place] [phone] Nov, [facility] [address] [id number] [address] [place] [phone] October, [facility] [address] [id number] [address] [place] [phone] October, Other B-complex deficiencies 266.2 [facility] [address] [id number] [address] [place] [phone] October, [facility] [address] [id number] [address] [place] [address], [place] [address] 14 Sep, 2014 [facility] [address] [id number] [address] [place] [address], [place] [address] 13 Sep, 2014 [facility] [address] [id number] [address] [place] [address], [place] [address] 20 Aug, 2014 [facility] [address] [id number] [address] [place] [address], [place] [address] 20 Aug, 2014 [facility] [address] [id number] [address] [place] [address], [place] [id number] 17 Aug, 2014 [facility] [address] [id number] [address] [place] [address], [place] [id number] 17 Aug, 2014 [facility] [address] [id number] [address] [place] [address], [place] [id number] 11 Aug, 2014 [facility] [address] [id number] [address] [place] [address], [place] [id number] 11 Aug, 2014 [facility] [address] [id number] [address] [place] [address], [place] [id number] 18 Jul, 2014 [facility] [address] [id number] [address] [place] [address], [place] [id number] 18 Jul, 2014 [facility] [address] [id number] [address] [place] [address], [place] [id number] 17 Jul, 2014 [facility] [address] [id number] [address] [place] [address], [place] [id number] 17 Jul, 2014 [facility] [address] [id number] [address] [place] [address], [place] [id number] 12 Jul, 2014 [facility] [address] [id number] [address] [place] [address], [place] [id number] 12 Jul, 2014 [facility] [address] [id number] [address] [place] [id number] 10 Jul, 2014 [facility] [address] [id number] [address] [place] [id number] Jul, 2014 [facility] [address] [id number] [address] [place] [address], [place] [id number] Jul, [facility] [address] [id number] [address] [place] [address], [place] [id number] Jul, 2014 [facility] [address] [id number] [address] [place] [address], [place] [id number] Jul, 2014 [facility] [address] [id number] [address] [place] [address], [place] [id number] Jul, 2014 [facility] [address] [id number] [address] [place] [address], [place] [id number] Jul, [facility] [address] [id number] [address] [place] [address], [place] [id number] Jul, [facility] [address] [id number] [address] [place] [id number] Jun, [facility] [address] [id number] [address] [place] [id number] Jun, [facility] [address] [id number] [address] [place] [id number] Jun, [facility] [address] [id number] [address] [place] [id number] Jun, [facility] [address] [id number] [address] [place] [id number] Jun, [facility] [address] [id number] [address] [place] [id number] Jun, [facility] [address] [id number] [address] [place] [id number] Jun, [facility] [address] [id number] [address] [place] [id number] Jun, [facility] [address] [id number] [address] [place] [id number] Jun, [facility] [address] [id number] [address] [place] [address], [place] [address] Jun, [facility] [address] [id number] [address] [place] [address], [place] [address] Jun, [facility] [address] [id number] [address] [place] [address], [place] [address] Jun, [facility] [address] [id number] [address] [place] [address], [place] [address] Jun, [facility] [address] [id number] [address] [place] [address], [place] [address] Jun, [facility] [address] [id number] [address] [place] [address], [place] [address] May, [facility] [address] [id number] [address] [place] [address], [place] [address] May, [facility] [address] [id number] [address] [place] [address], [place] [address] May, [facility] [address] [id number] [address] [place] [address], [place] [address] May, [facility] [address] [id number] [address] [place] [address], [place] [address] Apr, [facility] [address] [id number] [address] [place] [address], [place] [address] Apr, [facility] [address] [id number] [address] [place] [address], [place] [address] Apr, [facility] [address] [id number] [address] [place] [address], [place] [address] Apr, [facility] [address] [id number] [address] [place] [address], [place] [address] Apr, [facility] [address] [id number] [address] [place] [address], [place] [address] Apr, [facility] [address] [id number] [address] [place] [address], [place] [address] Mar, [facility] [address] [id number] [address] [place] [address], [place] [address] 24 Mar, 2014 [facility] [address] [id number] [address] [place] [address], [place] [address] Mar, [facility] [address] [id number] [address] [place] [address], [place] [address] Mar, [facility] [address] [id number] [address] [place] [address], [place] [address] 15 Mar, 2014 [facility] [address] [id number] [address] [place] [address], [place] [address] 15 Mar, 2014 [facility] [address] [id number] [address] [place] [address], [place] [address] Mar, [facility] [address] [id number] [address] [place] [address], [place] [address] Mar, [facility] [address] [id number] [address] [place] [address], [place] [address] 07 Mar, 2014 [facility] [address] [id number] [address] [place] [address], [place] [address] 07 Mar, 2014 [facility] [address] [id number] [address] [place] [address], [place] [address] 07 Mar, 2014 [facility] [address] [id number] [address] [place] [address] 07 Mar, 2014 [facility] [address] [id number] [address] [place] [id number] 06 Mar, 2013 [facility] [address] [id number] [address] [place] [address], [place] [address] Feb, [facility] [address] [id number] [address] [place] [address], [place] [address] 26 Feb, 2013 [facility] [address] [id number] [address] [place] [address], [place] [address] 23 Feb, 2013 [facility] [address] [id number] [facility] [place] [address] 23 Feb, 2013 [facility] [address] [id number] [address] [place] [address], [place] [address] 19 Feb, 2014 [facility] [address] [id number] [address] [place] [address], [place] [address] 19 Feb, 2014 [facility] [address] [id number] [address] [place] [address], [place] [address] 13 Feb, 2014 [facility] [address] [id number] [address] [place] [address], [place] [address] 13 Feb, 2014 [facility] [address] [id number] [address] [place] [address], [place] [address] 12 Feb, 2014 [facility] [address] [id number] [address] [place] [address], [place] [address] Feb, [facility] [address] [id number] [address] [place] [address], [place] [address] 15 Jan, 2014 [facility] [address] [id number] [address] [place] [address], [place] [address] Jan, [facility] [address] [id number] [address] [place] [address], [place] [address] Dec, [facility] [address] [id number] [address] [place] [address], [place] [address] Dec, [facility] [address] [id number] [address] [place] [address], [place] [address] Dec, [facility] [address] [id number] [address] [place] [address], [place] [address] Dec, [facility] [address] [id number] [address] [place] [address], [place] [address] Dec, [facility] [address] [id number] [address] [place] [address], [place] [address] Dec, [facility] [address] [id number] [address] [place] [address], [place] [address] Nov, [facility] [address] [id number] [facility] [place] [address] Nov, [facility] [address] [id number] [address] [place] [address], [place] [address] Nov, [facility] [address] [id number] [address] [place] [address], [place] [address] Nov, [facility] [address] [id number] [address] [place] [address], [place] [address] October, [facility] [address] [id number] [address] [place] [address], [place] [address] October, [facility] [address] [id number] [address] [place] [address], [place] [address] October, [facility] [address] [id number] [address] [place] [address], [place] [address] October, [facility] [address] [id number] [address] [place] [address], [place] [address] October, [facility] [address] [id number] [address] [place] [address], [place] [address] October, [facility] [address] [id number] [address] [place] [address], [place] [address] October, [facility] [address] [id number] [address] [place] [address], [place] [address] October, [facility] [address] [id number] [address] [place] [address], [place] [address] October, [facility] [address] [id number] [address] [place] [address], [place] [address] October, [facility] [address] [id number] [address] [place] [address], [place] [address] October, [facility] [address] [id number] [address] [place] [address], [place] [address] October, [facility] [address] [id number] [address] [place] [address], [place] [address] October, [facility] [address] [id number] [facility] [place] [address] October, [facility] [address] [id number] [address] [place] [address], [place] [address] October, [facility] [address] [id number] [address] [place] [address], [place] [address] October, [facility] [address] [id number] [address] [place] [address], [place] [address] Sep, [facility] [address] [id number] [address] [place] [address], [place] [address] Sep, [facility] [address] [id number] [address] [place] [address], [place] [address] Sep, [facility] [address] [id number] [address] [place] [address], [place] [address] Sep, [facility] [address] [id number] [address] [place] [address], [place] [address] Sep, [facility] [address] [id number] [address] [place] [address], [place] [address] Sep, [facility] [address] [id number] [address] [place] [address], [place] [address] Aug, [facility] [address] [id number] [address] [place] [address], [place] [address] Aug, [facility] [address] [id number] [address] [place] [address], [place] [address] Aug, [facility] [address] [id number] [address] [place] [address], [place] [address] Aug, [facility] [address] [id number] [address] [place] [address], [place] [address] Aug, [facility] [address] [id number] [address] [place] [address], [place] [address] Aug, [facility] [address] [id number] [address] [place] [address], [place] [address] 11 Jul, 2013 [facility] [address] [id number] [address] [place] [address], [place] [address] Jul, [facility] [address] [id number] [address] [place] [address], [place] [address] Jul, [facility] [address] [id number] [address] [place] [address], [place] [address] Jul, [facility] [address] [id number] [address] [place] [address], [place] [address] Jun, [facility] [address] [id number] [address] [place] [address], [place] [address] Jun, [facility] [address] [id number] [address] [place] [address], [place] [address] May, [facility] [address] [id number] [address] [place] [address], [place] [address] May, [facility] [address] [id number] [address] [place] [address], [place] [address] May, [facility] [address] [id number] [address] [place] [address], [place] [address] May, [facility] [address] [id number] [address] [place] [address], [place] [address] May, [facility] [address] [id number] [address] [place] [address], [place] [address] Apr, [facility] [address] [id number] [address] [place] [address], [place] [address] Apr, [facility] [address] [id number] [address] [place] [address], [place] [address] Apr, [facility] [address] [id number] [address] [place] [address], [place] [address] Apr, [facility] [address] [id number] [address] [place] [address] [address] 04 Apr, 2013 [facility] [address] [id number] [address] [place] [address], [place] [address] 04 Apr, 2013 [facility] [address] [id number] [address] [place] [address], [place] [address] 15 Mar, 2013 [facility] [address] [id number] [address] [place] [address], [place] [address] 15 Mar, 2013 [facility] [address] [id number] [address] [place] [address], [place] [address] 14 Mar, 2013 [facility] [address] [id number] [address] [place] [address], [place] [address] 14 Mar, 2013 [facility] [address] [id number] [address] [place] [address], [place] [address] 11 Mar, 2013 [facility] [address] [id number] [address] [place] [address], [place] [address] Mar, [facility] [address] [id number] [address] [place] [address], [place] [address] 23 Feb, 2013 [facility] [address] [id number] [address] [place] [address], [place] [address] 19 Feb, 2013 [facility] [address] [id number] [address] [place] [address], [place] [address] 04 Feb, 2013 [facility] [address] [id number] [address] [place] [address], [place] [address] 30 Jan, 2013 [facility] [address] [id number] [address] [place] [address] Jan, [facility] [address] [id number] [address] [place] [address], [place] [address] Jan, [facility] [address] [id number] [address] [place] [address], [place] [address] 16 Jan, 2013 [facility] [address] [id number] [address] [place] [address], [place] [address] Jan, [facility] [address] [id number] [address] [place] [address], [place] [address] Jan, [facility] [address] [id number] [address] [place] [address], [place] [address] Dec, [facility] [address] [id number] [address] [place] [address], [place] [address] Dec, [facility] [address] [id number] [address] [place] [address], [place] [address] Dec, [facility] [address] [id number] [address] [place] [address], [place] [address] Dec, [facility] [address] [id number] [address] [place] [address], [place] [address] Dec, [facility] [address] [id number] [address] [place] [address], [place] [address] Dec, [facility] [address] [id number] [address] [place] [address], [place] [address] Nov, [facility] [address] [id number] [address] [place] [address], [place] [address] Nov, [facility] [address] [id number] [address] [place] [address], [place] [address] Nov, [facility] [address] [id number] [address] [place] [address], [place] [address] Nov, [facility] [address] [id number] [address] [place] [address], [place] [address] Nov, [facility] [address] [id number] [address] [place] [address], [place] [address] Nov, [facility] [address] [id number] [address] [place] [address], [place] [address] October, [facility] [address] [id number] [address] [place] [address], [place] [address] October, [facility] [address] [id number] [address] [place] [address], [place] [address] October, [facility] [address] [id number] [address] [place] [address], [place] [address] October, [facility] [address] [id number] [address] [place] [address], [place] [address] October, [facility] [address] [id number] [address] [place] [address], [place] [address] Sep, [facility] [address] [id number] [address] [place] [address], [place] [address] Sep, [facility] [address] [id number] [address] [place] [address], [place] [address] Sep, [facility] [address] [id number] [address] [place] [address], [place] [address] Sep, [facility] [address] [id number] [address] [place] [address], [place] [address] Sep, [facility] [address] [id number] [address] [place] [address], [place] [address] Aug, [facility] [address] [id number] [address] [place] [address], [place] [address] Aug, [facility] [address] [id number] [address] [place] [address], [place] [address] Aug, [facility] [address] [id number] [address] [place] [address], [place] [address] Jul, [facility] [address] [id number] [address] [place] [address], [place] [address] Jul, [facility] [address] [id number] [address] [place] [address], [place] [address] Jul, [facility] [address] [id number] [address] [place] [address], [place] [address] 08 Jul, 2012 [facility] [address] [id number] [address] [place] [address], [place] [address] 06 Jul, 2012 [facility] [address] [id number] [address] [place] [address], [place] [address] 05 Jul, 2012 [facility] [address] [id number] [address] [place] [address], [place] [address] Jun, [facility] [address] [id number] [address] [place] [address], [place] [address] Apr, [facility] [address] [id number] [address] [place] [address], [place] [address] Apr, [facility] [address] [id number] [address] [place] [address], [place] [address] Apr, [facility] [address] [id number] [address] [place] [address], [place] [address] Apr, [facility] [address] [id number] [address] [place] [address], [place] [address] Mar, [facility] [address] [id number] [address] [place] [address], [place] [address] Mar, [facility] [address] [id number] [address] [place] [address], [place] [address] Mar, [facility] [address] [id number] [address] [place] [address], [place] [address] Mar, [facility] [address] [id number] [address] [place] [address], [place] [id number] Mar, [facility] [address] [id number] [address] [place] [address], [place] [id number] Feb, [facility] [address] [id number] [address] [place] [address], [place] [id number] Jan, [facility] [address] [id number] [address] [place] [address], [place] [id number] Jan, [facility] [address] [id number] [address] [place] [address], [place] [id number] Jan, [facility] [address] [id number] [address] [place] [address], [place] [id number] Dec, [facility] [address] [id number] [address] [place] [id number] Nov, [facility] [address] [id number] [address] [place] [id number] Nov, [facility] [address] [id number] [address] [place] [phone] Nov, [facility] [address] [id number] [address] [place] [id number] Nov, [facility] [address] [id number] [address] [place] [phone] Nov, [facility] [address] [id number] [address] [place] [phone] October, [facility] [address] [id number] [address] [place] [phone] October, [facility] [address] [id number] [address] [place] [id number] October, [facility] [address] [id number] [address] [place] [phone] October, [facility] [address] [id number] [address] [place] [id number] October, IMMUNIZATIONS No Known Immunizations SOCIAL HISTORY Never Assessed REASON FOR VISIT Controlled Med Refill 04/28/18 PLAN OF CARE VITAL SIGNS MEDICATIONS Medication Instructions Dosage Frequency Start Date End Date Duration S tatus Hydrocodone-Acetaminophen 10-325 MG Orally 3 times a day 1 tablet a s needed 8h Mar, 28 days Active RESULTS No Results PROCEDURES [...]
--- OUTSIDE RECORDS SUMMARY | 2020-01-25 08:00 | XMS REPORT ---
Author Author Velma CORDERO Organization [facility], [place] Address [address] [place] [address] Care Team Providers Care Helix Coil Winder Name Role Phone STEPHAN CORDERO Unavailable PROBLEMS Type Condition ICD9-CM Code STX37-IN Code Onset Dates Condition S tatus SNOMED Code Problem Hypercholesteremia E78.0 Active 1 7101336 Problem Arthritis M19.90 Active 6098346 Problem Hyperparathyroidism E21.3 Active 72024178 Problem Primary insomnia F51.01 Active 397 2004 Problem Myalgia M79.1 Active 93235545 Problem Chronic kidney disease, stage 4 (severe) N18.4 Active 228258437 Problem BPV (benign positional vertigo), bilateral H81.13 Active 219204510 Problem Corns L84 Active 219028544 Problem Mood disorder F39 Active 917101 05 Problem 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 Active 63943572 Problem 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 Active 23358184 ALLERGIES No Information ENCOUNTERS Encounter Location Date Diagnosis [place] [address] [facility] [id number] [address] [place] [address] Apr, [place] [address] [place] [id number] [address] [place] [id number] Mar, Chronic kidney disease, stag e 4 (severe) N18.4 [facility] [place] [address] [facility] [id number] [address] [place] [id number] Mar, Chronic kidney disease, stag e 4 (severe) N18.4 [place] [address] [place] [id number] [address] [place] [phone] 09 Mar, 2018 Labyrinthitis of left ear H8 3.02 [place] [address] [place] [id number] [address] [place] [address] Mar, Chronic kidney disease, stag e 4 (severe) N18.4 ; Knee pain, left anterior M25.562 ; 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 and Encounter for immunization Z23 [place] [address] [facility] [id number] [address] [place] [address] Mar, Arthritis M19.90 [place] [address] [place] [id number] [address] [place] [address] Feb, Labyrinthitis of left ear H8 3.02 [place] [address] [place] [id number] [address] [place] [id number] Feb, Arthritis M19.90 [place] [address] [place] [id number] [address] [place] [phone] Jan, Labyrinthitis of left ear H8 3.02 [place] [address] [place] [id number] [address] [place] [address] Jan, Arthritis M19.90 [place] [address] [place] [id number] [address] [place] [phone] Dec, Labyrinthitis of left ear H8 3.02 [place] [address] [place] [id number] [address] [place] [phone] Nov, Arthritis M19.90 [place] [address] [place] [id number] [address] [place] [phone] Nov, Labyrinthitis of left ear H8 3.02 [place] [address] [place] [id number] [address] [place] [address] Nov, BMI 40.0-44.9, adult Z68.41 ; Chronic kidney disease, stage 4 (severe) N18.4 and Acute right-sided thoracic back pain M54.6 [place] [address] [place] [id number] [address] [place] [phone] October, Labyrinthitis of left ear H8 3.02 and Arthritis M19.90 [place] [address] [place] [id number] [address] [place] [address] Sep, BPV (benign positional verti go), bilateral H81.13 ; Dysfunction of left eustachian tube H69.82 and BMI 40.0-44.9, adult Z68.41 [facility] [place] [address] [facility] [id number] [address] [place] [id number] Sep, Labyrinthitis of left ear H8 3.02 and Arthritis M19.90 [facility], [place] [address] [place] [id number] [address] [place] [phone] Sep, [facility] [place] [address] [place] [id number] [address] [place] [phone] Sep, [facility], [place] [address] [place] [id number] [place] [phone] Sep, Chronic kidney disease, stag e 4 (severe) N18.4 [facility], [place] [address] [place] [id number] [address] [place] [phone] Sep, Chronic kidney disease, stag e 4 (severe) N18.4 [facility] [place] [address] [place] [id number] [address] [place] [phone] Aug, Labyrinthitis of left ear H8 3.02 and Arthritis M19.90 [facility] [place] [address] [place] [id number] [address] [place] [address] Aug, [facility] [place] [address] [place] [id number] [address] [place] [phone] Jul, [facility] [place] [address] [place] [id number] [address] [place] [address] Jul, Arthritis M19.90 and Labyrin thitis of left ear H83.02 [facility], [place] [address] [place] [id number] [address] [place] [address] Jul, [facility] [place] [address] [place] [id number] [address] [place] [phone] Jun, [place] [id number] [place] [address] Jun, Arthritis M19.90 and Labyrin thitis of left ear H83.02 [place] [address] [place] [id number] [address] [place] [phone] Jun, Pre-op evaluation Z01.818 ; BMI 40.0-44.9, adult Z68.41 and Encounter for immunization Z23 [place] [address] [place] [id number] [address] [place] [address] May, Arthritis M19.90 and Labyrin thitis of left ear H83.02 [place] [address] [address] Apr, Labyrinthitis of left ear H8 3.02 [place] [address] [address] Apr, Arthritis M19.90 and Labyrin thitis of left ear H83.02 [place] [address] [place] [id number] [address] [place] [address] Mar, Arthritis M19.90 and Labyrin thitis of left ear H83.02 [place] [address] [place] [id number] [address] [place] [address] Mar, Chronic kidney disease, stag e 4 (severe) N18.4 [place] [address] [place] [id number] [address] [place] [address] Feb, Arthritis M19.90 and Labyrin thitis of left ear H83.02 [place] [address] [place] [id number] [address] [place] [address] Jan, Labyrinthitis of left ear H8 3.02 and Deficiency 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 [place] [address] [place] [id number] [address] [place] [address] Dec, Arthritis M19.90 [place] [address] [place] [id number] [place] [address] Dec, BPV (benign positional verti go), bilateral H81.13 [facility] [place] [address] [place] [id number] [address] [place] [phone] Dec, [facility] [place] [address] [place] [id number] [address] [place] [phone] Dec, [facility] [place] [address] [place] [id number] [address] [place] [phone] Dec, [facility] [place] [address] [place] [id number] [address] [place] [phone] Nov, Arthritis M19.90 and Deficie ncy of other specified B group vitamins E53.8 [facility], [place] [address] [place] [id number] [address] [place] [phone] Nov, Arthritis M19.90 [facility], [place] [address] [place] [id number] [address] [place] [phone] Nov, Hyperparathyroidism E21.3 [facility], [place] [address] [place] [id number] [address] [place] [phone] October, [facility] [place] [address] [address] October, Hyperparathyroidism E21.3 [facility], [place] [address] [place] [id number] [address] [place] [id number] October, [facility] [place] [address] [place] [id number] [address] [place] [phone] October, Renal insufficiency N28.9 an d Hyperparathyroidism E21.3 [facility] [place] [address] [facility] [id number] [address] [place] [phone] October, [facility] [place] [address] [place] [id number] [address] [place] [phone] October, Renal insufficiency N28.9 an d Hyperparathyroidism E21.3 [facility], [place] [address] [place] [id number] [address] [place] [address] October, Arthritis M19.90 [facility], [place] [address] [facility] [id number] [address] [place] [address] Sep, [facility] [place] [address] [facility] [id number] [address] [place] [address] Sep, Lumbar neuritis M54.16 ; Tho racic abscess J86.9 and Deficiency of other specified B group vitamins E53.8 [facility] [place] [address] [facility] [id number] [address] [place] [address] Sep, [facility] [place] [address] [facility] [id number] [address] [place] [phone] Aug, Arthritis M19.90 [facility], [place] [address] [place] [id number] [address] [place] [address] Aug, Hyperparathyroidism E21.3 [facility] [place] [address] [place] [id number] [address] [place] [phone] Aug, Hyperparathyroidism E21.3 [facility] [place] [address] [place] [id number] [address] [place] [address] Aug, Arthritis M19.90 [facility] [place] [address] [place] [id number] [address] [place] [phone] Jul, Mass of throat R22.1 [facility] [place] [address] [facility] [id number] [address] [place] [phone] Jul, [facility] [place] [address] [facility] [id number] [address] [place] [address] Jul, Arthritis M19.90 [facility] [place] [address] [facility] [id number] [address] [place] [phone] Jun, Arthritis M19.90 [facility] [place] [address] [place] [id number] [address] [place] [address] Jun, [facility] [place] [address] [place] [id number] [address] [place] [phone] Jun, Renal insufficiency N28.9 an d 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 [facility] [place] [address] [id number] [address] [place] [phone] 05 Jun, 2016 Medicare welcome exam Z00.00 ; Encounter for immunization Z23 ; Arthritis M19.90 ; Medicare annual wellness visit, initial Z00.00 ; Medicare annual wellness visit, subsequent Z00.00 and 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 [facility] [place] [address] [facility] [id number] [address] [place] [phone] 29 May, 2016 Renal insufficiency N28.9 an d 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 [facility] [place] [address] [facility] [id number] [address] [place] [id number] 19 May, 2016 Renal insufficiency N28.9 [facility] [place] [address] [facility] [id number] [address] [place] [id number] 16 May, 2016 Renal insufficiency N28.9 [facility] [place] [address] [facility] [id number] [address] [place] [phone] 14 May, 2016 [facility] [place] [address] [facility] [id number] [address] [place] [phone] Apr, [facility] [place] [address] [place] [id number] [address] [place] [phone] 16 Apr, 2016 [facility] [place] [address] [facility] [id number] [address] [place] [phone] 14 Apr, 2016 Mass of throat R22.1 [facility] [place] [address] [facility] [id number] [address] [place] [phone] 10 Apr, 2016 [facility] [place] [address] [facility] [id number] [address] [place] [phone] 10 Apr, 2016 Mass of throat R22.1 [facility] [place] [address] [facility] [id number] [address] [place] [phone] 04 Apr, 2016 Mass of throat R22.1 [facility] [place] [address] [facility] [id number] [address] [place] [id number] Mar, [facility] [place] [address] [facility] [id number] [address] [place] [phone] Mar, [facility] [place] [address] [facility] [id number] [address] [place] [phone] Mar, [facility] [place] [address] [facility] [id number] [address] [place] [id number] 24 Mar, 2016 Parathyroid abnormality E21. 5 and Encounter for immunization Z23 [facility] [place] [address] [facility] [id number] [address] [place] [phone] 17 Mar, 2016 [facility] [place] [address] [facility] [id number] [address] [place] [phone] 11 Mar, 2016 [facility] [place] [address] [facility] [id number] [address] [place] [phone] 21 Feb, 2016 Renal insufficiency N28.9 an d Hyperparathyroidism E21.3 [facility] [place] [address] [facility] [id number] [address] [place] [phone] 19 Feb, 2016 [facility] [place] [address] [facility] [id number] [address] [place] [phone] 15 Feb, 2016 Renal insufficiency N28.9 an d Hyperparathyroidism E21.3 [facility] [place] [address] [facility] [id number] [address] [place] [phone] 14 Feb, 2016 [facility] [place] [address] [facility] [id number] [address] [place] [id number] 12 Feb, 2016 [facility] [place] [address] [facility] [id number] [address] [place] [phone] 09 Feb, 2016 [facility] [place] [address] [facility] [id number] [address] [place] [phone] Jan, [facility] [place] [address] [facility] [id number] [address] [place] [address] Jan, Arthritis M19.90 ; Lumbago w ith sciatica, right side M54.41 and Other chronic pain G89.29 [facility] [place] [address] [facility] [id number] [address] [place] [address] Jan, [facility] [place] [address] [facility] [id number] [address] [place] [address] Dec, Arthritis M19.90 ; Lumbago w ith sciatica, right side M54.41 and Other chronic pain G89.29 [place] [id number] [place] [id number] [address] [place] [address] Nov, Deficiency of other specifie d B group vitamins E53.8 ; Primary insomnia F51.01 ; Mood disorder F39 and Lumbago with sciatica, right side M54.41 [place] [address] [place] [id number] [place] [address] Nov, Hyperparathyroidism E21.3 [place] [address] [place] [id number] [place] [address] Nov, Unspecified kidney failure N 19 and Hyperparathyroidism E21.3 [place] [address] [place] [id number] [address] [place] [address] October, Hyperparathyroidism E21.3 [place] [address] [place] [id number] [address] [place] [address] October, [place] [address] [place] [id number] [place] [phone] October, Hyperparathyroidism E21.3 [place] [address] [place] [id number] [address] [place] [address] October, Hyperparathyroidism E21.3 [place] [address] [place] [id number] [address] [place] [address] Sep, Hyperparathyroidism E21.3 ; Hypercholesterolemia E78.0 and Arthritis M19.90 [place] [id number] [facility] [id number] [address] [place] [phone] Aug, [place] [address] [place] [id number] [address] [place] [phone] Aug, Deficiency of other specifie d B group vitamins E53.8 [place] [id number] [id number] [address] [place] [address] Aug, [facility] [place] [address] [id number] [address] [place] [phone] Jul, Urinary frequency R35.0 [facility], [place] [address] [id number] [address] [place] [phone] Jul, Urinary frequency R35.0 [facility] [place] [address] [id number] [address] [place] [phone] Jul, [facility] [place] [address] [id number] [address] [place] [phone] Jul, [facility] [place] [address] [facility] [id number] [address] [place] [address] Jun, Pain in left knee M25.562 [facility] [place] [address] [facility] [id number] [address] [place] [address] Jun, [facility] [place] [address] [facility] [id number] [address] [place] [address] May, Swelling of left knee joint M25.462 [facility] [place] [address] [facility] [id number] [address] [place] [phone] May, [facility] [place] [address] [facility] [id number] [address] [place] [phone] May, [facility] [place] [address] [facility] [id number] [address] [place] [phone] May, [facility] [place] [address] [facility] [id number] [address] [place] [phone] Apr, Renal insufficiency N28.9 an d Chronic kidney disease, stage 4 (severe) N18.4 [facility] [place] [address] [facility] [id number] [address] [place] [id number] Apr, Unspecified kidney failure N 19 [facility] [place] [address] [facility] [id number] [address] [place] [phone] Apr, Unspecified kidney failure N 19 [facility] [place] [address] [facility] [id number] [address] [place] [phone] Apr, [facility] [place] [address] [facility] [id number] [address] [place] [address] Apr, Hyperparathyroidism, unspeci fied 252.00 [facility] [place] [address] [facility] [id number] [address] [place] [phone] Apr, [facility] [place] [address] [facility] [id number] [address] [place] [id number] Mar, [facility] [place] [address] [facility] [id number] [address] [place] [phone] Mar, [facility] [place] [address] [facility] [id number] [address] [place] [id number] Mar, Hyperparathyroidism, unspeci fied 252.00 [facility] [place] [address] [facility] [id number] [address] [place] [id number] Feb, [facility] [place] [address] [facility] [id number] [address] [place] [phone] Feb, Otalgia 388.70 [facility] [place] [address] [facility] [id number] [address] [place] [phone] Feb, [facility] [place] [address] [facility] [id number] [address] [place] [phone] Feb, [facility] [place] [address] [facility] [id number] [address] [place] [phone] Jan, [facility] [place] [address] [facility] [id number] [address] [place] [phone] Jan, Hyperparathyroidism, unspeci fied 252.00 [facility] [place] [address] [facility] [id number] [address] [place] [address] Jan, [facility] [place] [address] [facility] [id number] [address] [place] [phone] Jan, Other B-complex deficiencies 266.2 and Hyperparathyroidism, unspecified 252.00 [facility] [place] [address] [id number] [address] [place] [phone] Jan, [facility], [place] [address] [id number] [address] [place] [id number] Jan, [facility], [place] [address] [id number] [address] [place] [phone] Jan, [facility], [place] [address] [id number] [address] [place] [phone] Dec, [facility], [place] [address] [id number] [address] [place] [phone] Dec, [facility], [place] [address] [id number] [address] [place] [id number] Dec, [facility], [place] [address] [id number] [address] [place] [phone] Nov, Routine check-up V70.0 and P re-op exam V72.84 [facility], [place] [address] [id number] [address] [place] [phone] Nov, [facility], [place] [address] [id number] [address] [place] [id number] Nov, [facility], [place] [address] [id number] [address] [place] [phone] October, [facility], [place] [address] [id number] [address] [place] [id number] October, Other B-complex deficiencies 266.2 [facility], [place] [address] [id number] [address] [place] [phone] October, [facility], [place] [address] [id number] [address] [place] [phone] Sep, [facility], [place] [address] [id number] [address] [place] [phone] Sep, [facility], [place] [address] [id number] [address] [place] [address] [place] [phone] 20 Aug, 2014 [facility] [address] [id number] [address] [place] [address], [place] [phone] 20 Aug, 2014 [facility] [address] [id number] [address] [place] [address], [place] [phone] 17 Aug, 2014 [facility] [address] [id number] [address] [place] [address], [place] [phone] 17 Aug, 2014 [facility] [address] [id number] [address] [place] [address], [place] [phone] 11 Aug, 2014 [facility] [address] [id number] [address] [place] [address], [place] [id number] 11 Aug, 2014 [facility] [address] [id number] [address] [place] [address], [place] [address] 18 Jul, 2014 [facility] [place] [address] [id number] [address] [place] [address], [place] [address] 18 Jul, 2014 [facility] [place] [facility] [address] [id number] [address] [place] [address], [place] [address] 17 Jul, 2014 [facility] [place] [facility] [address] [id number] [address] [place] [address], [place] [address] 17 Jul, 2014 [facility] [place] [facility] [address] [id number] [address] [place] [address], [place] [address] 12 Jul, 2014 [facility] [place] [facility] [address] [id number] [address] [place] [address], [place] [address] 12 Jul, 2014 [facility] [place] [facility] [address] [id number] [address] [place] [address], [place] [address] 10 Jul, 2014 [facility] [place] [facility] [address] [id number] [address] [place] [address], [place] [address] 10 Jul, 2014 [facility] [place] [facility] [address] [id number] [address] [place] [address], [place] [address] 09 Jul, 2014 [facility] [place] [facility] [address] [id number] [address] [place] [address], [place] [address] Jul, [facility] [address] [id number] [address] [place] [address], [place] [address] Jul, [facility] [place] [facility] [address] [id number] [address] [place] [address], [place] [address] Jul, [facility] [place] [address] [id number] [address] [place] [address], [place] [address] Jul, [facility] [place] [address] [id number] [address] [place] [address], [place] [address] Jul, [facility] [address] [id number] [address] [place] [address], [place] [address] Jun, [facility] [address] [id number] [address] [place] [address], [place] [address] Jun, [facility] [address] [id number] [address] [place] [address], [place] [address] Jun, [facility] [place] [address] [id number] [address] [place] [address], [place] [address] Jun, [facility] [address] [id number] [address] [place] [address], [place] [address] Jun, [facility] [address] [id number] [address] [place] [address], [place] [address] Jun, [facility] [address] [id number] [address] [place] [address], [place] [address] Jun, [facility] [place] [address] [id number] [address] [place] [address], [place] [address] Jun, [facility] [place] [address] [id number] [address] [place] [address], [place] [address] Jun, [facility] [place] [address] [id number] [address] [place] [address], [place] [address] Jun, [facility] [place] [address] [id number] [address] [place] [address], [place] [address] Jun, [facility] [address] [id number] [address] [place] [address], [place] [address] Jun, [facility] [address] [id number] [address] [place] [address], [place] [address] Jun, [facility] [address] [id number] [address] [place] [address], [place] [address] Jun, [facility] [address] [id number] [address] [place] [address], [place] [address] May, [facility] [address] [id number] [address] [place] [address], [place] [address] May, [facility] [address] [id number] [address] [place] [address], [place] [address] May, [facility] [address] [id number] [address] [place] [address], [place] [address] May, [facility] [address] [id number] [address] [place] [address], [place] [address] Apr, [facility] [address] [id number] [address] [place] [address], [place] [address] Apr, [facility] [address] [id number] [address] [place] [address], [place] [address] Apr, [facility] [address] [id number] [address] [place] [address], [place] [address] Apr, [facility] [address] [id number] [address] [place] [address], [place] [address] Apr, [facility] [address] [id number] [address] [place] [address], [place] [address] Apr, [facility] [address] [id number] [address] [place] [address], [place] [address] Mar, [facility] [address] [id number] [address] [place] [address], [place] [address] Mar, [facility] [address] [id number] [address] [place] [address], [place] [address] Mar, [facility] [address] [id number] [address] [place] [address], [place] [address] 22 Mar, 2014 [facility] [address] [id number] [address] [place] [address], [place] [address] 15 Mar, 2014 [facility] [address] [id number] [address] [place] [address], [place] [address] 15 Mar, 2014 [facility] [address] [id number] [address] [place] [address], [place] [address] Mar, [facility] [address] [id number] [address] [place] [address], [place] [address] 13 Mar, 2014 [facility] [address] [id number] [address] [place] [address], [place] [address] Mar, [facility] [address] [id number] [address] [place] [address], [place] [address] Mar, [facility] [address] [id number] [address] [place] [address] Mar, [facility] [place] [address] [id number] [address] [place] [address], [place] [address] Mar, [facility] [place] [address] [id number] [address] [place] [address] 06 Mar, 2014 [facility] [place] [address] [id number] [address] [place] [address] 26 Feb, 2013 [facility] [address] [id number] [address] [place] [address] 26 Feb, 2013 [facility] [address] [id number] [address] [place] [address], [place] [address] 23 Feb, 2013 [facility] [place] [address] [id number] [address] [place] [address], [place] [address] 23 Feb, 2013 [facility] [place] [address] [id number] [address] [place] [address] 19 Feb, 2013 [facility] [place] [address] [id number] [address] [place] [address] 19 Feb, 2014 [facility] [address] [id number] [address] [place] [address], [place] [address] 13 Feb, 2014 [facility] [address] [id number] [address] [place] [address], [place] [address] 13 Feb, 2014 [facility] [address] [id number] [address] [place] [address], [place] [address] 12 Feb, 2014 [facility] [address] [id number] [address] [place] [address], [place] [address] Feb, [facility] [address] [id number] [address] [place] [address], [place] [address] Jan, [facility] [address] [id number] [address] [place] [address], [place] [address] Jan, [facility] [address] [id number] [address] [place] [address], [place] [address] Dec, [facility] [place] [facility] [address] [id number] [address] [place] [address], [place] [address] Dec, [facility] [address] [id number] [address] [place] [address], [place] [address] Dec, [facility] [place] [facility] [address] [id number] [address] [place] [address], [place] [address] Dec, [facility] [place] [facility] [address] [id number] [address] [place] [address], [place] [address] Dec, [facility] [place] [facility] [address] [id number] [address] [place] [address], [place] [address] Dec, [facility] [place] [address] [id number] [address] [place] [address], [place] [address] Nov, [facility] [place] [facility] [address] [id number] [address] [place] [address], [place] [address] Nov, [facility] [place] [facility] [address] [id number] [address] [place] [address], [place] [address] Nov, [facility] [place] [facility] [address] [id number] [facility] [place] [address] Nov, [facility] [address] [id number] [facility] [place] [address] October, [facility] [address] [id number] [facility] [place] [address] October, [facility] [address] [id number] [facility] [place] [address] October, [facility] [address] [id number] [facility] [place] [address] October, [facility] [address] [id number] [address] [place] [address], [place] [address] October, [facility] [address] [id number] [address] [place] [address], [place] [address] October, [facility] [address] [id number] [address] [place] [address], [place] [address] October, [facility] [address] [id number] [address] [place] [address], [place] [address] October, [facility] [address] [id number] [address] [place] [address], [place] [address] October, [facility] [address] [id number] [address] [place] [address], [place] [address] October, [facility] [address] [id number] [address] [place] [address], [place] [address] October, [facility] [address] [id number] [address] [place] [address], [place] [address] October, [facility] [address] [id number] [address] [place] [address], [place] [address] October, [facility] [address] [id number] [address] [place] [address], [place] [address] October, [facility] [address] [id number] [address] [place] [address], [place] [address] October, [facility] [address] [id number] [facility] [place] [address] October, [facility] [place] [address] [id number] [facility] [place] [address] Sep, [facility] [place] [facility] [address] [id number] [facility] [place] [address] Sep, [facility] [place] [address] [id number] [address] [place] [address], [place] [address] Sep, [facility] [address] [id number] [address] [place] [address], [place] [address] Sep, [facility] [place] [address] [id number] [address] [place] [address], [place] [address] Sep, [facility] [place] [address] [id number] [address] [place] [address], [place] [address] Sep, [facility] [place] [address] [id number] [address] [place] [address], [place] [address] Aug, [facility] [place] [address] [id number] [address] [place] [address], [place] [address] Aug, [facility] [place] [facility] [address] [id number] [address] [place] [address], [place] [address] Aug, [facility] [place] [facility] [address] [id number] [address] [place] [address], [place] [address] Aug, [facility] [place] [address] [id number] [address] [place] [address], [place] [address] Aug, [facility] [address] [id number] [address] [place] [address], [place] [address] Aug, [facility] [place] [address] [id number] [address] [place] [address], [place] [address] Jul, [facility] [place] [facility] [address] [id number] [address] [place] [address], [place] [address] Jul, [facility] [place] [facility] [address] [id number] [address] [address] 03 Jul, 2013 [facility] [address] [id number] [address] [place] [address], [place] [address] 03 Jul, 2013 [facility] [address] [id number] [address] [place] [address], [place] [address] 13 Jun, 2013 [facility] [address] [id number] [address] [place] [address], [place] [address] Jun, [facility] [address] [id number] [address] [place] [address], [place] [address] May, [facility] [address] [id number] [address] [place] [address], [place] [address] May, [facility] [address] [id number] [address] [place] [address], [place] [address] May, [facility] [address] [id number] [address] [place] [address], [place] [address] May, [facility] [address] [id number] [address] [place] [address], [place] [address] May, [facility] [address] [id number] [address] [place] [address], [place] [address] Apr, [facility] [address] [id number] [address] [place] [address], [place] [address] Apr, [facility] [address] [id number] [address] [place] [address], [place] [address] Apr, [facility] [address] [id number] [address] [place] [address], [place] [address] Apr, [facility] [address] [id number] [address] [place] [address], [place] [address] Apr, [facility] [address] [id number] [address] [place] [address], [place] [address] 04 Apr, 2013 [facility] [address] [id number] [address] [place] [address], [place] [address] 15 Mar, 2013 [facility] [address] [id number] [address] [place] [address], [place] [address] 15 Mar, 2013 [facility] [address] [id number] [address] [place] [address], [place] [address] 14 Mar, 2013 [facility] [address] [id number] [address] [place] [address], [place] [address] 14 Mar, 2013 [facility] [address] [id number] [address] [place] [address], [place] [address] 11 Mar, 2013 [facility] [address] [id number] [address] [place] [address], [place] [address] 11 Mar, 2013 [facility] [address] [id number] [address] [place] [address], [place] [address] 23 Feb, 2013 [facility] [address] [id number] [address] [place] [address], [place] [address] 19 Feb, 2013 [facility] [address] [id number] [address] [place] [address], [place] [address] 04 Feb, 2013 [facility] [address] [id number] [address] [place] [address], [place] [address] 30 Jan, 2013 [facility] [address] [id number] [address] [place] [address], [place] [address] Jan, [facility] [address] [id number] [address] [place] [address], [place] [address] Jan, [facility] [address] [id number] [address] [place] [address] 16 Jan, 2013 [facility] [address] [id number] [address] [place] [address], [place] [address] Jan, [facility] [address] [id number] [address] [place] [address], [place] [address] Jan, [facility] [address] [id number] [address] [place] [address] Dec, [facility] [address] [id number] [address] [place] [address], [place] [address] Dec, [facility] [address] [id number] [address] [place] [address], [place] [address] Dec, [facility] [address] [id number] [address] [place] [address], [place] [address] Dec, [facility] [address] [id number] [address] [place] [address], [place] [address] Dec, [facility] [address] [id number] [address] [place] [address], [place] [address] Dec, [facility] [address] [id number] [address] [place] [address], [place] [address] Nov, [facility] [address] [id number] [address] [place] [address], [place] [address] Nov, [facility] [address] [id number] [address] [place] [address], [place] [address] Nov, [facility] [address] [id number] [address] [place] [address], [place] [address] Nov, [facility] [address] [id number] [address] [place] [address], [place] [address] Nov, [facility] [address] [id number] [address] [place] [address], [place] [address] Nov, [facility] [address] [id number] [address] [place] [address], [place] [address] October, [facility] [address] [id number] [address] [place] [address], [place] [address] October, [facility] [address] [id number] [address] [place] [address], [place] [address] October, [facility] [address] [id number] [address] [place] [address], [place] [address] October, [facility] [address] [id number] [address] [place] [address], [place] [address] October, [facility] [address] [id number] [address] [place] [address], [place] [address] 30 Sep, 2012 [facility] [address] [id number] [address] [place] [address], [place] [address] 23 Sep, 2012 [facility] [address] [id number] [address] [place] [address], [place] [address] Sep, [facility] [address] [id number] [address] [place] [address], [place] [address] 18 Sep, 2012 [facility] [address] [id number] [address] [place] [address], [place] [address] 09 Sep, 2012 [facility] [address] [id number] [address] [place] [address], [place] [address] 26 Aug, 2012 [facility] [address] [id number] [address] [place] [address], [place] [address] 07 Aug, 2012 [facility] [address] [id number] [address] [place] [address], [place] [address] 04 Aug, 2012 [facility] [address] [id number] [address] [place] [address], [place] [address] Jul, [facility] [address] [id number] [address] [place] [address], [place] [address] Jul, [facility] [address] [id number] [address] [place] [address], [place] [address] Jul, [facility] [address] [id number] [address] [place] [address], [place] [address] 08 Jul, 2012 [facility] [address] [id number] [address] [place] [address], [place] [address] 06 Jul, 2012 [facility] [address] [id number] [address] [place] [address], [place] [address] 05 Jul, 2012 [facility] [address] [id number] [address] [place] [address], [place] [address] 15 Jun, 2012 [facility] [address] [id number] [address] [place] [id number] Apr, [facility] [address] [id number] [address] [place] [address], [place] [address] Apr, [facility] [address] [id number] [address] [place] [phone] Apr, [facility] [address] [id number] [address] [place] [address], [place] [address] Apr, [facility] [address] [id number] [address] [place] [address], [place] [address] Mar, [facility] [address] [id number] [address] [place] [address], [place] [address] Mar, [facility] [address] [id number] [address] [place] [address], [place] [address] Mar, [facility] [address] [id number] [address] [place] [address], [place] [address] Mar, [facility] [address] [id number] [address] [place] [address], [place] [address] Mar, [facility] [address] [id number] [address] [place] [address], [place] [address] Feb, [facility] [address] [id number] [address] [place] [address], [place] [address] Jan, [facility] [address] [id number] [address] [place] [address], [place] [address] Jan, [facility] [address] [id number] [address] [place] [phone] Jan, [facility] [address] [id number] [address] [place] [address], [place] [address] Dec, [facility] [address] [id number] [address] [place] [address], [place] [address] Nov, [facility] [address] [id number] [address] [place] [address], [place] [address] Nov, [facility] [address] [id number] [address] [place] [id number] Nov, [facility] [place] [address] [id number] [address] [place] [address] Nov, [facility] [place] [address] [id number] [address] [place] [phone] Nov, [facility] [place] [address] [id number] [address] [place] [phone] October, [facility] [place] [address] [id number] [address] [place] [address] October, [facility] [place] [address] [id number] [address] [place] [address] October, [facility] [place] [address] [facility] [id number] [address] [place] [id number] October, [facility] [place] [address] [facility] [id number] [address] [place] [id number] October, IMMUNIZATIONS No Known Immunizations SOCIAL HISTORY Never Assessed REASON FOR VISIT labs for [facility] PLAN OF CARE VITAL SIGNS MEDICATIONS Unknown [...]
--- OUTSIDE RECORDS SUMMARY | 2020-01-25 08:00 | XMS REPORT ---
Author Author Velma CORDERO Organization [facility] Address [address] [place] [address] Care Team Providers Care Edger Automatic Name Role Phone STEPHAN CORDERO Unavailable PROBLEMS Type Condition ICD9-CM Code [id number] Code Onset Dates Condition S tatus SNOMED Code Problem Hypercholesteremia E78.0 Active 1 2281759 Problem Arthritis M19.90 Active 4398062 Problem Hyperparathyroidism E21.3 Active 96786602 Problem Primary insomnia F51.01 Active 397 2004 Problem Myalgia M79.1 Active 58910102 Problem Chronic kidney disease, stage 4 (severe) N18.4 Active 973638988 Problem BPV (benign positional vertigo), bilateral H81.13 Active 190117556 Problem Corns L84 Active 570784732 Problem Mood disorder F39 Active 638557 05 Problem 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 Active 23930057 Problem 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 Active 64432551 ALLERGIES No Information ENCOUNTERS Encounter Location Date Diagnosis [place] [address] [place] [id number] [place] [phone] 08 Apr, 2018 [place] [address] [place] [id number] [place] [phone] 16 Mar, 2018 [place] [address] [place] [id number] [place] [phone] Mar, Chronic kidney disease, stag e 4 (severe) N18.4 [place] [address] [place] [id number] [place] [phone] Mar, Chronic kidney disease, stag e 4 (severe) N18.4 [place] [address] [place] [id number] [place] [phone] 09 Mar, 2018 Labyrinthitis of left ear H8 3.02 [place] [address] [place] [id number] [place] [phone] Mar, Chronic kidney disease, stag e 4 (severe) N18.4 ; Knee pain, left anterior M25.562 ; 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 and Encounter for immunization Z23 [facility] [address] [place] [id number] [place] [phone] Mar, Arthritis M19.90 [place] [address] [place] [id number] [place] [phone] Feb, Labyrinthitis of left ear H8 3.02 [place] [address] [place] [id number] [place] [phone] Feb, Arthritis M19.90 [place] [address] [place] [id number] [place] [phone] Jan, Labyrinthitis of left ear H8 3.02 [place] [address] [place] [id number] [place] [phone] Jan, Arthritis M19.90 [place] [address] [place] [id number] [place] [phone] Dec, Labyrinthitis of left ear H8 3.02 [place] [address] [place] [id number] [place] [phone] Nov, Arthritis M19.90 [place] [address] [place] [id number] [place] [phone] Nov, Labyrinthitis of left ear H8 3.02 [place] [address] [place] [id number] [place] [id number] Nov, BMI 40.0-44.9, adult Z68.41 ; Chronic kidney disease, stage 4 (severe) N18.4 and Acute right-sided thoracic back pain M54.6 [place] [address] [place] [id number] [place] [phone] October, Labyrinthitis of left ear H8 3.02 and Arthritis M19.90 [facility] [address] [facility] [id number] [address] [place] [phone] Sep, BPV (benign positional verti go), bilateral H81.13 ; Dysfunction of left eustachian tube H69.82 and BMI 40.0-44.9, adult Z68.41 [facility] [address] [facility] [id number] [address] [place] [phone] Sep, Labyrinthitis of left ear H8 3.02 and Arthritis M19.90 [facility] [address] [facility] [id number] [address] [place] [phone] Sep, [facility] [address] [place] [id number] [place] [phone] Sep, [facility] [address] [place] [id number] [place] [phone] Sep, Chronic kidney disease, stag e 4 (severe) N18.4 [facility] [address] [facility] [id number] [address] [place] [phone] Sep, Chronic kidney disease, stag e 4 (severe) N18.4 [facility] [address] [facility] [id number] [address] [place] [phone] Aug, Labyrinthitis of left ear H8 3.02 and Arthritis M19.90 [facility] [address] [id number] [address] [place] [phone] Aug, [facility] [address] [id number] [address] [place] [phone] Jul, [facility] [address] [facility] [id number] [address] [place] [phone] Jul, Arthritis M19.90 and Labyrin thitis of left ear H83.02 [facility] [address] [place] [id number] [place] [phone] Jul, [place] [id number] [place] [phone] Jun, [place] [address] [address] Jun, Arthritis M19.90 and Labyrin thitis of left ear H83.02 [place] [address] [address] Jun, Pre-op evaluation Z01.818 ; BMI 40.0-44.9, adult Z68.41 and Encounter for immunization Z23 [place] [address] [address] May, Arthritis M19.90 and Labyrin thitis of left ear H83.02 [place] [address] [address] Apr, Labyrinthitis of left ear H8 3.02 [place] [address] [address] Apr, Arthritis M19.90 and Labyrin thitis of left ear H83.02 [place] [address] [address] Mar, Arthritis M19.90 and Labyrin thitis of left ear H83.02 [place] [address] [address] Mar, Chronic kidney disease, stag e 4 (severe) N18.4 [place] [address] [place] [id number] [address] [place] [phone] Feb, Arthritis M19.90 and Labyrin thitis of left ear H83.02 [place] [address] [place] [id number] [address] [place] [address] Jan, Labyrinthitis of left ear H8 3.02 and 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 [place] [address] [place] [id number] [place] [address] Dec, Arthritis M19.90 [facility] [address] [id number] [address] [place] [phone] Dec, BPV (benign positional verti go), bilateral H81.13 [facility] [address] [facility] [id number] [address] [place] [phone] Dec, [facility] [address] [facility] [id number] [address] [place] [phone] Dec, [facility] [address] [facility] [id number] [address] [place] [phone] Dec, [facility] [address] [facility] [id number] [address] [place] [address] Nov, Arthritis M19.90 and Deficie ncy of other specified B group vitamins E53.8 [facility] [address] [facility] [id number] [address] [place] [phone] Nov, Arthritis M19.90 [facility] [address] [facility] [id number] [address] [place] [phone] Nov, Hyperparathyroidism E21.3 [facility] [address] [facility] [id number] [address] [place] [phone] October, [facility] [address] [facility] [id number] [address] [place] [phone] October, Hyperparathyroidism E21.3 [facility] [address] [facility] [id number] [address] [place] [phone] October, [facility] [address] [facility] [id number] [address] [place] [phone] October, Renal insufficiency N28.9 an d Hyperparathyroidism E21.3 [facility] [address] [facility] [id number] [address] [place] [phone] October, [facility] [address] [facility] [id number] [address] [place] [phone] October, Renal insufficiency N28.9 an d Hyperparathyroidism E21.3 [facility] [address] [facility] [id number] [address] [place] [phone] October, Arthritis M19.90 [facility] [address] [facility] [id number] [address] [place] [phone] Sep, [facility] [address] [facility] [id number] [address] [place] [phone] Sep, Lumbar neuritis M54.16 ; Tho racic abscess J86.9 and Deficiency of other specified B group vitamins E53.8 [facility] [address] [facility] [id number] [address] [place] [phone] Sep, [facility] [address] [facility] [id number] [address] [place] [phone] Aug, Arthritis M19.90 [facility] [address] [place] [id number] [place] [phone] Aug, Hyperparathyroidism E21.3 [facility] [address] [facility] [id number] [address] [place] [phone] Aug, Hyperparathyroidism E21.3 [facility] [address] [facility] [id number] [address] [place] [phone] Aug, Arthritis M19.90 [facility] [address] [facility] [id number] [address] [place] [phone] Jul, Mass of throat R22.1 [facility] [address] [facility] [id number] [address] [place] [phone] Jul, [facility] [address] [facility] [id number] [address] [place] [phone] Jul, Arthritis M19.90 [facility] [address] [facility] [id number] [address] [place] [phone] Jun, Arthritis M19.90 [facility] [address] [place] [id number] [place] [phone] Jun, [facility] [address] [facility] [id number] [address] [place] [phone] Jun, Renal insufficiency N28.9 an d 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 [facility] [address] [facility] [id number] [address] [place] [phone] 05 Jun, 2016 Medicare welcome exam Z00.00 ; Encounter for immunization Z23 ; Arthritis M19.90 ; Medicare annual wellness visit, initial Z00.00 ; Medicare annual wellness visit, subsequent Z00.00 and 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 [facility] [address] [facility] [id number] [address] [place] [phone] 29 May, 2016 Renal insufficiency N28.9 an d 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 [facility] [address] [facility] [id number] [address] [place] [phone] May, Renal insufficiency N28.9 [facility] [address] [facility] [id number] [address] [place] [phone] May, Renal insufficiency N28.9 [facility] [address] [facility] [id number] [address] [place] [phone] May, [facility] [address] [facility] [id number] [address] [place] [phone] Apr, [facility] [address] [facility] [id number] [address] [place] [phone] Apr, [facility] [address] [facility] [id number] [address] [place] [phone] 14 Apr, 2016 Mass of throat R22.1 [facility] [address] [facility] [id number] [address] [place] [phone] 10 Apr, 2016 [facility] [address] [facility] [id number] [address] [place] [phone] 10 Apr, 2016 Mass of throat R22.1 [facility] [address] [facility] [id number] [address] [place] [phone] 04 Apr, 2016 Mass of throat R22.1 [facility] [address] [id number] [address] [place] [phone] Mar, [facility] [address] [facility] [id number] [address] [place] [phone] Mar, [facility] [address] [facility] [id number] [address] [place] [phone] Mar, [facility] [address] [facility] [id number] [address] [place] [phone] Mar, Parathyroid abnormality E21. 5 and Encounter for immunization Z23 [facility] [address] [facility] [id number] [address] [place] [phone] Mar, [facility] [address] [facility] [id number] [address] [place] [phone] Mar, [facility] [address] [facility] [id number] [address] [place] [phone] 21 Feb, 2016 Renal insufficiency N28.9 an d Hyperparathyroidism E21.3 [facility] [address] [facility] [id number] [address] [place] [phone] 19 Feb, 2016 [facility] [address] [facility] [id number] [address] [place] [phone] 15 Feb, 2016 Renal insufficiency N28.9 an d Hyperparathyroidism E21.3 [facility] [address] [facility] [id number] [address] [place] [phone] 14 Feb, 2016 [facility] [address] [facility] [id number] [address] [place] [phone] 12 Feb, 2016 [facility] [address] [facility] [id number] [address] [place] [phone] 09 Feb, 2016 [facility] [address] [facility] [id number] [address] [place] [phone] Jan, [facility] [address] [facility] [id number] [address] [place] [phone] Jan, Arthritis M19.90 ; Lumbago w ith sciatica, right side M54.41 and Other chronic pain G89.29 [facility] [address] [facility] [id number] [address] [place] [phone] Jan, [facility] [address] [facility] [id number] [address] [place] [phone] Dec, Arthritis M19.90 ; Lumbago w ith sciatica, right side M54.41 and Other chronic pain G89.29 [facility] [address] [place] [id number] [place] [phone] 16 Nov, 2015 Deficiency of other specifie d B group vitamins E53.8 ; Primary insomnia F51.01 ; Mood disorder F39 and Lumbago with sciatica, right side M54.41 [place] [address] [facility] [id number] [address] [place] [phone] Nov, Hyperparathyroidism E21.3 [place] [address] [place] [id number] [address] [place] [phone] Nov, Unspecified kidney failure N 19 and Hyperparathyroidism E21.3 [place] [address] [facility] [id number] [address] [place] [phone] October, Hyperparathyroidism E21.3 [place] [address] [place] [id number] [address] [place] [phone] October, [place] [address] [facility] [id number] [address] [place] [phone] October, Hyperparathyroidism E21.3 [place] [address] [facility] [id number] [address] [place] [phone] October, Hyperparathyroidism E21.3 [facility] [address] [facility] [id number] [address] [place] [phone] Sep, Hyperparathyroidism E21.3 ; Hypercholesterolemia E78.0 and Arthritis M19.90 [facility] [address] [facility] [id number] [address] [place] [phone] Aug, [place] [address] [place] [id number] [address] [place] [phone] Aug, Deficiency of other specifie d B group vitamins E53.8 [facility] [address] [facility] [id number] [address] [place] [phone] Aug, [facility] [address] [facility] [id number] [address] [place] [phone] Jul, Urinary frequency R35.0 [facility] [address] [place] [id number] [address] [place] [phone] Jul, Urinary frequency R35.0 [facility] [address] [facility] [id number] [address] [place] [phone] Jul, [facility] [address] [place] [id number] [place] [phone] Jul, [facility] [address] [place] [id number] [address] [place] [phone] Jun, Pain in left knee M25.562 [facility] [address] [place] [id number] [address] [place] [phone] Jun, [facility] [address] [place] [id number] [place] [phone] May, Swelling of left knee joint M25.462 [facility] [address] [place] [id number] [address] [place] [phone] 16 May, 2015 [facility] [address] [place] [id number] [address] [place] [phone] May, [facility] [address] [place] [id number] [address] [place] [phone] May, [facility] [address] [place] [id number] [address] [place] [phone] Apr, Renal insufficiency N28.9 an d Chronic kidney disease, stage 4 (severe) N18.4 [facility] [address] [place] [id number] [address] [place] [phone] Apr, Unspecified kidney failure N 19 [facility] [address] [id number] [address] [place] [phone] Apr, Unspecified kidney failure N 19 [facility] [address] [id number] [address] [place] [phone] Apr, [facility] [address] [facility] [id number] [address] [place] [id number] Apr, Hyperparathyroidism, unspeci fied 252.00 [facility] [address] [id number] [address] [place] [phone] Apr, [facility] [address] [id number] [address] [place] [phone] Mar, [facility] [address] [id number] [address] [place] [phone] Mar, [facility] [address] [id number] [address] [place] [phone] Mar, Hyperparathyroidism, unspeci fied 252.00 [facility] [address] [id number] [address] [place] [phone] Feb, [facility] [address] [facility] [id number] [address] [place] [id number] Feb, Otalgia 388.70 [facility] [address] [id number] [address] [place] [id number] Feb, [facility] [address] [id number] [address] [place] [phone] Feb, [facility] [address] [id number] [address] [place] [phone] Jan, [facility] [address] [id number] [address] [place] [phone] Jan, Hyperparathyroidism, unspeci fied 252.00 [facility] [address] [facility] [id number] [address] [place] [phone] Jan, [facility] [address] [id number] [address] [place] [phone] Jan, Other B-complex deficiencies 266.2 and Hyperparathyroidism, unspecified 252.00 [facility] [address] [id number] [address] [place] [phone] Jan, [facility] [address] [id number] [address] [place] [phone] Jan, [facility] [address] [id number] [address] [place] [phone] Jan, [facility] [address] [id number] [address] [place] [id number] Dec, [facility] [address] [id number] [address] [place] [id number] Dec, [facility] [address] [id number] [address] [place] [id number] Dec, [facility] [address] [id number] [address] [place] [phone] Nov, Routine check-up V70.0 and P re-op exam V72.84 [facility] [address] [id number] [address] [place] [id number] Nov, [facility] [address] [id number] [address] [place] [phone] Nov, [facility] [address] [id number] [address] [place] [phone] October, [facility] [address] [id number] [address] [place] [phone] October, Other B-complex deficiencies 266.2 [facility] [address] [id number] [address] [place] [phone] October, [facility] [address] [id number] [address] [place] [id number] Sep, [facility] [address] [id number] [address] [place] [address] [place] [id number] 13 Sep, 2014 [facility] [address] [id number] [address] [place] [address], [place] [phone] 20 Aug, 2014 [facility] [address] [id number] [address] [place] [address], [place] [id number] 20 Aug, 2014 [facility] [address] [id number] [address] [place] [address], [place] [id number] 17 Aug, 2014 [facility] [address] [id number] [address] [place] [address], [place] [id number] 17 Aug, 2014 [facility] [address] [id number] [address] [place] [address], [place] [address] 11 Aug, 2014 [facility] [address] [id number] [address] [place] [address], [place] [address] 11 Aug, 2014 [facility] [address] [id number] [address] [place] [address], [place] [address] 18 Jul, 2014 [facility] [address] [id number] [address] [place] [address], [place] [address] 18 Jul, 2014 [facility] [address] [id number] [address] [place] [address], [place] [id number] 17 Jul, 2014 [facility] [address] [id number] [address] [place] [address], [place] [address] 17 Jul, 2014 [facility] [address] [id number] [address] [place] [address], [place] [address] 12 Jul, 2014 [facility] [address] [id number] [address] [place] [address], [place] [address] 12 Jul, 2014 [facility] [address] [id number] [address] [place] [address], [place] [address] 10 Jul, 2014 [facility] [address] [id number] [address] [place] [address], [place] [address] 10 Jul, 2014 [facility] [address] [id number] [address] [place] [address], [place] [address] Jul, 2014 [facility] [address] [id number] [address] [place] [address], [place] [id number] Jul, [facility] [address] [id number] [address] [place] [address], [place] [address] Jul, [facility] [address] [id number] [address] [place] [address], [place] [id number] Jul, [facility] [address] [id number] [address] [place] [address], [place] [address] Jul, [facility] [address] [id number] [address] [place] [address], [place] [address] Jul, [facility] [address] [id number] [address] [place] [address], [place] [address] Jun, [facility] [address] [id number] [address] [place] [address], [place] [id number] Jun, [facility] [address] [id number] [address] [place] [address], [place] [id number] Jun, [facility] [address] [id number] [address] [place] [address], [place] [address] Jun, [facility] [address] [id number] [address] [place] [address], [place] [address] Jun, [facility] [address] [id number] [address] [place] [address], [place] [address] Jun, [facility] [address] [id number] [address] [place] [address], [place] [address] Jun, [facility] [address] [id number] [address] [place] [address], [place] [address] Jun, [facility] [address] [id number] [address] [place] [address], [place] [address] Jun, [facility] [address] [id number] [address] [place] [address], [place] [id number] Jun, [facility] [address] [id number] [address] [place] [address], [place] [id number] Jun, [facility] [address] [id number] [address] [place] [address], [place] [address] Jun, [facility] [address] [id number] [address] [place] [address], [place] [address] Jun, [facility] [address] [id number] [address] [place] [address], [place] [address] Jun, [facility] [address] [id number] [address] [place] [address], [place] [address] May, [facility] [address] [id number] [address] [place] [address], [place] [address] May, [facility] [address] [id number] [address] [place] [address], [place] [address] May, [facility] [address] [id number] [address] [place] [address], [place] [id number] May, [facility] [address] [id number] [address] [place] [address], [place] [address] Apr, [facility] [address] [id number] [address] [place] [address], [place] [address] Apr, [facility] [address] [id number] [address] [place] [address], [place] [address] Apr, [facility] [address] [id number] [address] [place] [address], [place] [address] Apr, [facility] [address] [id number] [address] [place] [address], [place] [address] Apr, [facility] [address] [id number] [address] [place] [address], [place] [address] Apr, [facility] [address] [id number] [address] [place] [address], [place] [address] Mar, [facility] [address] [id number] [address] [place] [address], [place] [address] Mar, [facility] [address] [id number] [address] [place] [address], [place] [address] Mar, [facility] [address] [id number] [address] [place] [address], [place] [address] 22 Mar, 2014 [facility] [address] [id number] [address] [place] [address], [place] [address] 15 Mar, 2014 [facility] [address] [id number] [address] [place] [address], [place] [address] 15 Mar, 2014 [facility] [address] [id number] [address] [place] [address], [place] [address] Mar, [facility] [address] [id number] [address] [place] [address], [place] [address] Mar, [facility] [address] [id number] [address] [place] [address], [place] [address] Mar, [facility] [address] [id number] [address] [place] [id number] Mar, [facility] [address] [id number] [address] [place] [address], [place] [address] Mar, [facility] [address] [id number] [address] [place] [id number] Mar, [facility] [address] [id number] [address] [place] [id number] 06 Mar, 2014 [facility] [address] [id number] [address] [place] [id number] 26 Feb, 2013 [facility] [address] [id number] [address] [place] [address], [place] [address] Feb, [facility] [address] [id number] [address] [place] [address], [place] [id number] 23 Feb, 2014 [facility] [address] [id number] [address] [place] [id number] 23 Feb, 2013 [facility] [address] [id number] [address] [place] [id number] 19 Feb, 2014 [facility] [address] [id number] [address] [place] [address], [place] [id number] 19 Feb, 2014 [facility] [address] [id number] [address] [place] [address], [place] [address] 13 Feb, 2014 [facility] [address] [id number] [address] [place] [address], [place] [address] 13 Feb, 2014 [facility] [address] [id number] [address] [place] [address], [place] [address] 12 Feb, 2014 [facility] [address] [id number] [address] [place] [address], [place] [address] Feb, [facility] [address] [id number] [address] [place] [address], [place] [address] Jan, [facility] [address] [id number] [address] [place] [address], [place] [address] Jan, [facility] [address] [id number] [address] [place] [address], [place] [address] Dec, [facility] [address] [id number] [address] [place] [address], [place] [address] Dec, [facility] [address] [id number] [address] [place] [address], [place] [address] Dec, [facility] [address] [id number] [address] [place] [address], [place] [address] Dec, [facility] [address] [id number] [address] [place] [address], [place] [address] Dec, [facility] [address] [id number] [address] [place] [address], [place] [address] Dec, [facility] [address] [id number] [address] [place] [address], [place] [address] Nov, [facility] [address] [id number] [address] [place] [address], [place] [address] Nov, [facility] [address] [id number] [facility] [place] [address] Nov, [facility] [address] [id number] [facility] [place] [address] Nov, [facility] [address] [id number] [facility] [place] [address] October, [facility] [address] [id number] [address] [place] [address] October, [facility] [address] [id number] [address] [place] [address] October, [facility] [address] [id number] [address] [place] [address], [place] [address] October, [facility] [address] [id number] [address] [place] [address], [place] [address] October, [facility] [address] [id number] [address] [place] [address], [place] [address] October, [facility] [address] [id number] [address] [place] [address], [place] [address] October, [facility] [address] [id number] [address] [place] [address], [place] [address] October, [facility] [address] [id number] [address] [place] [address], [place] [address] October, [facility] [address] [id number] [address] [place] [address], [place] [address] October, [facility] [address] [id number] [address] [place] [address], [place] [id number] October, [facility] [address] [id number] [address] [place] [address], [place] [address] October, [facility] [address] [id number] [address] [place] [address], [place] [id number] October, [facility] [address] [id number] [address] [place] [address], [place] [address] October, [facility] [address] [id number] [facility] [place] [address] October, [facility] [address] [id number] [address] [place] [address] October, [facility] [address] [id number] [address] [place] [address] Sep, [facility] [address] [id number] [address] [place] [address], [place] [address] Sep, [facility] [address] [id number] [address] [place] [address], [place] [address] Sep, [facility] [address] [id number] [address] [place] [address], [place] [address] Sep, [facility] [address] [id number] [address] [place] [address], [place] [address] Sep, [facility] [address] [id number] [address] [place] [address], [place] [address] Sep, [facility] [address] [id number] [address] [place] [address], [place] [address] Aug, [facility] [address] [id number] [address] [place] [address], [place] [id number] Aug, [facility] [address] [id number] [address] [place] [address], [place] [address] Aug, [facility] [address] [id number] [address] [place] [address], [place] [address] Aug, [facility] [address] [id number] [address] [place] [address], [place] [address] Aug, [facility] [address] [id number] [address] [place] [address], [place] [address] Aug, [facility] [address] [id number] [address] [place] [address], [place] [address] Jul, [facility] [address] [id number] [address] [place] [address], [place] [address] 11 Jul, 2013 [facility] [address] [id number] [address] [place] [address], [place] [address] 03 Jul, 2013 [facility] [address] [id number] [address] [place] [address], [place] [address] 03 Jul, 2013 [facility] [address] [id number] [address] [place] [address], [place] [address] 13 Jun, 2013 [facility] [address] [id number] [address] [place] [address], [place] [address] Jun, [facility] [address] [id number] [address] [place] [address], [place] [address] May, [facility] [address] [id number] [address] [place] [address], [place] [address] May, [facility] [address] [id number] [address] [place] [address], [place] [address] May, [facility] [address] [id number] [address] [place] [address], [place] [address] May, [facility] [address] [id number] [address] [place] [address], [place] [address] May, [facility] [address] [id number] [address] [place] [address], [place] [address] Apr, [facility] [address] [id number] [address] [place] [address], [place] [address] Apr, [facility] [address] [id number] [address] [place] [address], [place] [id number] Apr, [facility] [address] [id number] [address] [place] [address], [place] [address] Apr, [facility] [address] [id number] [address] [place] [address], [place] [address] Apr, [facility] [address] [id number] [address] [place] [address], [place] [address] Apr, [facility] [address] [id number] [address] [place] [address], [place] [address] 15 Mar, 2013 [facility] [address] [id number] [address] [place] [address], [place] [id number] 15 Mar, 2013 [facility] [address] [id number] [address] [place] [address], [place] [address] 14 Mar, 2013 [facility] [address] [id number] [address] [place] [address], [place] [address] 14 Mar, 2013 [facility] [address] [id number] [address] [place] [address], [place] [id number] Mar, [facility] [address] [id number] [address] [place] [address], [place] [address] Mar, [facility] [address] [id number] [address] [place] [address], [place] [id number] 23 Feb, 2013 [facility] [address] [id number] [address] [place] [address], [place] [id number] 19 Feb, 2013 [facility] [address] [id number] [address] [place] [address], [place] [id number] 04 Feb, 2013 [facility] [address] [id number] [address] [place] [id number] 30 Jan, 2013 [facility] [address] [id number] [address] [place] [address], [place] [address] Jan, [facility] [address] [id number] [address] [place] [address] Jan, [facility] [address] [id number] [address] [place] [address], [place] [address] Jan, [facility] [address] [id number] [address] [place] [address], [place] [address] Jan, [facility] [address] [id number] [address] [place] [address] Jan, [facility] [address] [id number] [address] [place] [address], [place] [id number] Dec, [facility] [address] [id number] [address] [place] [address], [place] [address] Dec, [facility] [address] [id number] [address] [place] [address], [place] [address] Dec, [facility] [address] [id number] [address] [place] [address], [place] [address] Dec, [facility] [address] [id number] [address] [place] [address], [place] [address] Dec, [facility] [address] [id number] [address] [place] [address], [place] [address] Dec, [facility] [address] [id number] [address] [place] [address], [place] [id number] Nov, [facility] [address] [id number] [address] [place] [address], [place] [address] Nov, [facility] [address] [id number] [address] [place] [address], [place] [id number] Nov, [facility] [address] [id number] [address] [place] [address], [place] [address] Nov, [facility] [address] [id number] [address] [place] [address], [place] [address] Nov, [facility] [address] [id number] [address] [place] [address], [place] [id number] Nov, [facility] [address] [id number] [address] [place] [address], [place] [id number] October, [facility] [address] [id number] [address] [place] [address], [place] [id number] October, [facility] [address] [id number] [address] [place] [address], [place] [id number] October, [facility] [address] [id number] [address] [place] [address], [place] [address] October, [facility] [address] [id number] [address] [place] [address], [place] [id number] 2012 [facility] [address] [id number] [address] [place] [address], [place] [id number] 30 Sep, 2012 [facility] [address] [id number] [address] [place] [address], [place] [id number] 23 Sep, 2012 [facility] [address] [id number] [address] [place] [address], [place] [address] Sep, [facility] [address] [id number] [address] [place] [address], [place] [id number] 18 Sep, 2012 [facility] [address] [id number] [address] [place] [address], [place] [address] Sep, [facility] [address] [id number] [address] [place] [address], [place] [id number] Aug, [facility] [address] [id number] [address] [place] [address], [place] [id number] Aug, [facility] [address] [id number] [address] [place] [address], [place] [id number] Aug, [facility] [address] [id number] [address] [place] [address], [place] [id number] Jul, [facility] [address] [id number] [address] [place] [address], [place] [id number] Jul, [facility] [address] [id number] [address] [place] [address], [place] [id number] Jul, [facility] [address] [id number] [address] [place] [address], [place] [id number] 08 Jul, 2012 [facility] [address] [id number] [address] [place] [address], [place] [id number] 06 Jul, 2012 [facility] [address] [id number] [address] [place] [address], [place] [id number] 05 Jul, 2012 [facility] [address] [id number] [address] [place] [id number] Jun, [facility] [address] [id number] [address] [place] [address], [place] [id number] Apr, [facility] [address] [id number] [address] [place] [address], [place] [id number] Apr, [facility] [address] [id number] [address] [place] [address], [place] [id number] Apr, [facility] [address] [id number] [address] [place] [address], [place] [id number] Apr, [facility] [address] [id number] [address] [place] [address], [place] [id number] Mar, [facility] [address] [id number] [address] [place] [address], [place] [id number] Mar, [facility] [address] [id number] [address] [place] [address], [place] [id number] Mar, [facility] [address] [id number] [address] [place] [address], [place] [id number] Mar, [facility] [address] [id number] [address] [place] [address], [place] [id number] Mar, [facility] [address] [id number] [address] [place] [address], [place] [id number] Feb, [facility] [address] [id number] [address] [place] [address], [place] [id number] Jan, [facility] [address] [id number] [address] [place] [id number] Jan, [facility] [address] [id number] [address] [place] [address], [place] [id number] Jan, [facility] [address] [id number] [address] [place] [address], [place] [id number] Dec, [facility] [address] [id number] [address] [place] [address], [place] [id number] Nov, [facility] [address] [id number] [address] [place] [id number] 19 Nov, 2011 [facility] [address] [id number] [address] [place] [id number] Nov, [facility] [address] [id number] [address] [place] [id number] 07 Nov, 2011 [facility] [address] [id number] [address] [place] [id number] Nov, [facility] [address] [id number] [address] [place] [id number] October, [facility] [address] [id number] [address] [place] [id number] October, [facility] [address] [id number] [address] [place] [id number] October, [facility] [address] [id number] [address] [place] [id number] October, [facility] [address] [id number] [address] [place] [id number] October, IMMUNIZATIONS No Known Immunizations SOCIAL HISTORY Never Assessed REASON FOR VISIT Lab (walk-in) PLAN OF CARE Activity Details Pending Test UA W/ MICROSCOPY VITAL SIGNS MEDICATIONS Unknown Medications RESULTS No Results PROCEDURES Procedure Date Ordered Result Body Site ASSAY OF PARATHORMONE Apr 12, 2018 RENAL FUNCTION PANEL Apr 12, 2018 VENIPUNCT, ROUTINE* Apr 12, 2018 ASSAY OF VITAMIN D Apr 12, 2018 ASSAY OF URINE CREATININE Apr 12, 2018 ASSAY OF PROTEIN, URINE Apr 12, 2018 URINALYSIS, AUTO W/SCOPE Apr 12, 2018 COMPLETE CBC W/AUTO DIFF WBC Apr 12, 2018 INSTRUCTIONS MEDICATIONS ADMINISTERED No Known Medications MEDICAL [...]
--- OUTSIDE RECORDS SUMMARY | 2020-01-25 08:01 | XMS REPORT ---
Author Author Velma CORDERO Organization [facility] Address [address] [place] [address] Care Team Providers Care Sports Teacher Name Role Phone STEPHAN CORDERO Unavailable PROBLEMS Type Condition ICD9-CM Code [id number] Code Onset Dates Condition S tatus SNOMED Code Problem Hypercholesteremia E78.0 Active 1 9877186 Problem Arthritis M19.90 Active 0569790 Problem Hyperparathyroidism E21.3 Active 29662032 Problem Primary insomnia F51.01 Active 397 2004 Problem Myalgia M79.1 Active 39739955 Problem Chronic kidney disease, stage 4 (severe) N18.4 Active 722279022 Problem BPV (benign positional vertigo), bilateral H81.13 Active 230476145 Problem Corns L84 Active 356669747 Problem Mood disorder F39 Active 194707 05 Problem 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 Active 71482629 Problem 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 Active 74207750 ALLERGIES No Information ENCOUNTERS Encounter Location Date Diagnosis [place] [address] [facility] [id number] [address] [place] [phone] Apr, [place] [address] [place] [id number] [address] [place] [phone] Mar, Labyrinthitis of left ear H8 3.02 [facility] [address] [facility] [id number] [address] [place] [phone] Mar, Chronic kidney disease, stag e 4 (severe) N18.4 ; Knee pain, left anterior M25.562 ; Deficiency 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 and Encounter for immunization Z23 [place] [address] [facility] [id number] [address] [place] [address] Mar, Arthritis M19.90 [place] [address] [place] [id number] [address] [place] [phone] Feb, Labyrinthitis of left ear H8 3.02 [facility] [address] [facility] [id number] [address] [place] [address] Feb, Arthritis M19.90 [facility] [address] [facility] [id number] [address] [place] [phone] Jan, Labyrinthitis of left ear H8 3.02 [facility] [address] [facility] [id number] [address] [place] [phone] Jan, Arthritis M19.90 [place] [address] [facility] [id number] [address] [place] [phone] Dec, Labyrinthitis of left ear H8 3.02 [place] [address] [place] [id number] [address] [place] [phone] Nov, Arthritis M19.90 [place] [address] [place] [id number] [address] [place] [id number] Nov, Labyrinthitis of left ear H8 3.02 [place] [address] [place] [id number] [address] [place] [phone] Nov, BMI 40.0-44.9, adult Z68.41 ; Chronic kidney disease, stage 4 (severe) N18.4 and Acute right-sided thoracic back pain M54.6 [place] [address] [place] [id number] [address] [place] [address] October, Labyrinthitis of left ear H8 3.02 and Arthritis M19.90 [place] [address] [facility] [id number] [address] [place] [address] Sep, BPV (benign positional verti go), bilateral H81.13 ; Dysfunction of left eustachian tube H69.82 and BMI 40.0-44.9, adult Z68.41 [place] [address] [place] [id number] [address] [place] [phone] Sep, Labyrinthitis of left ear H8 3.02 and Arthritis M19.90 [facility] [address] [id number] [address] [place] [phone] Sep, [facility] [address] [id number] [address] [place] [phone] Sep, [facility] [address] [id number] [address] [place] [phone] Sep, Chronic kidney disease, stag e 4 (severe) N18.4 [facility] [address] [id number] [address] [place] [phone] Sep, Chronic kidney disease, stag e 4 (severe) N18.4 [facility] [address] [id number] [address] [place] [id number] Aug, Labyrinthitis of left ear H8 3.02 and Arthritis M19.90 [facility] [address] [id number] [address] [place] [phone] Aug, [facility] [address] [id number] [address] [place] [phone] Jul, [facility] [address] [id number] [address] [place] [id number] Jul, Arthritis M19.90 and Labyrin thitis of left ear H83.02 [facility] [address] [facility] [id number] [address] [place] [phone] Jul, [facility] [address] [id number] [address] [place] [phone] Jun, [facility] [address] [facility] [id number] [address] [place] [phone] Jun, Arthritis M19.90 and Labyrin thitis of left ear H83.02 [facility] [address] [facility] [id number] [address] [place] [address] Jun, Pre-op evaluation Z01.818 ; BMI 40.0-44.9, adult Z68.41 and Encounter for immunization Z23 [place] [address] [address] May, Arthritis M19.90 and Labyrin thitis of left ear H83.02 [place] [address] [place] [id number] [place] [address] Apr, Labyrinthitis of left ear H8 3.02 [place] [address] [address] Apr, Arthritis M19.90 and Labyrin thitis of left ear H83.02 [place] [address] [address] Mar, Arthritis M19.90 and Labyrin thitis of left ear H83.02 [place] [address] [address] Mar, Chronic kidney disease, stag e 4 (severe) N18.4 [place] [address] [address] Feb, Arthritis M19.90 and Labyrin thitis of left ear H83.02 [place] [address] [place] [id number] [place] [address] Jan, Labyrinthitis of left ear H8 3.02 and Deficiency 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 [place] [address] [place] [id number] [address] [place] [address] Dec, Arthritis M19.90 [place] [address] [place] [id number] [place] [phone] Dec, BPV (benign positional verti go), bilateral H81.13 [place] [address] [place] [id number] [address] [place] [phone] Dec, [place] [address] [address] Dec, [facility] [address] [facility] [id number] [address] [place] [phone] Dec, [facility] [address] [facility] [id number] [address] [place] [phone] Nov, Arthritis M19.90 and Deficie ncy of other specified B group vitamins E53.8 [facility] [address] [facility] [id number] [address] [place] [address] Nov, Arthritis M19.90 [facility] [address] [facility] [id number] [address] [place] [address] Nov, Hyperparathyroidism E21.3 [facility] [address] [facility] [id number] [address] [place] [phone] October, [facility] [address] [facility] [id number] [address] [place] [phone] October, Hyperparathyroidism E21.3 [facility] [address] [facility] [id number] [address] [place] [address] October, [facility] [address] [facility] [id number] [address] [place] [address] October, Renal insufficiency N28.9 an d Hyperparathyroidism E21.3 [facility] [address] [facility] [id number] [address] [place] [phone] October, [facility] [address] [facility] [id number] [address] [place] [phone] October, Renal insufficiency N28.9 an d Hyperparathyroidism E21.3 [facility] [address] [facility] [id number] [address] [place] [address] October, Arthritis M19.90 [facility] [address] [facility] [id number] [address] [place] [address] Sep, [facility] [address] [facility] [id number] [address] [place] [address] Sep, Lumbar neuritis M54.16 ; Tho racic abscess J86.9 and Deficiency of other specified B group vitamins E53.8 [facility] [address] [id number] [address] [place] [address] Sep, [facility] [address] [facility] [id number] [address] [place] [address] Aug, Arthritis M19.90 [facility] [address] [facility] [id number] [address] [place] [address] Aug, Hyperparathyroidism E21.3 [facility] [address] [facility] [id number] [address] [place] [address] Aug, Hyperparathyroidism E21.3 [facility] [address] [facility] [id number] [address] [place] [address] Aug, Arthritis M19.90 [facility] [address] [place] [id number] [address] [place] [phone] Jul, Mass of throat R22.1 [facility] [address] [facility] [id number] [address] [place] [address] 16 Jul, 2016 [facility] [address] [facility] [id number] [address] [place] [address] Jul, Arthritis M19.90 [facility] [address] [facility] [id number] [address] [place] [address] Jun, Arthritis M19.90 [facility] [address] [facility] [id number] [address] [place] [phone] Jun, [facility] [address] [facility] [id number] [address] [place] [id number] Jun, Renal insufficiency N28.9 an d 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 [facility] [address] [facility] [id number] [address] [place] [address] 05 Jun, 2016 Medicare welcome exam Z00.00 ; Encounter for immunization Z23 ; Arthritis M19.90 ; Medicare annual wellness visit, initial Z00.00 ; Medicare annual wellness visit, subsequent Z00.00 and 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 [facility] [address] [facility] [id number] [address] [place] [phone] 29 May, 2016 Renal insufficiency N28.9 an d 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 [facility] [address] [facility] [id number] [address] [place] [phone] 19 May, 2016 Renal insufficiency N28.9 [facility] [address] [facility] [id number] [address] [place] [phone] 16 May, 2016 Renal insufficiency N28.9 [facility] [address] [facility] [id number] [address] [place] [phone] May, [facility] [address] [facility] [id number] [address] [place] [phone] 16 Apr, 2016 [facility] [address] [place] [id number] [address] [place] [phone] Apr, [facility] [address] [place] [id number] [address] [place] [id number] 14 Apr, 2016 Mass of throat R22.1 [facility] [address] [facility] [id number] [address] [place] [phone] Apr, [facility] [address] [facility] [id number] [address] [place] [phone] Apr, Mass of throat R22.1 [facility] [address] [facility] [id number] [address] [place] [phone] 04 Apr, 2016 Mass of throat R22.1 [facility] [address] [facility] [id number] [address] [place] [id number] Mar, [facility] [address] [place] [id number] [address] [place] [phone] Mar, [facility] [address] [facility] [id number] [address] [place] [phone] Mar, [facility] [address] [place] [id number] [address] [place] [phone] Mar, Parathyroid abnormality E21. 5 and Encounter for immunization Z23 [facility] [address] [id number] [address] [place] [phone] Mar, [facility] [address] [id number] [address] [place] [address] Mar, [facility] [address] [id number] [address] [place] [id number] 21 Feb, 2016 Renal insufficiency N28.9 an d Hyperparathyroidism E21.3 [facility] [address] [id number] [address] [place] [phone] 19 Feb, 2016 [facility] [address] [id number] [address] [place] [id number] 15 Feb, 2016 Renal insufficiency N28.9 an d Hyperparathyroidism E21.3 [facility] [address] [id number] [address] [place] [phone] 14 Feb, 2016 [facility] [address] [id number] [address] [place] [phone] 12 Feb, 2016 [facility] [address] [id number] [address] [place] [phone] 09 Feb, 2016 [facility] [address] [id number] [address] [place] [phone] Jan, [facility] [address] [id number] [address] [place] [phone] Jan, Arthritis M19.90 ; Lumbago w ith sciatica, right side M54.41 and Other chronic pain G89.29 [facility] [address] [id number] [address] [place] [id number] Jan, [facility] [address] [id number] [address] [place] [address] Dec, Arthritis M19.90 ; Lumbago w ith sciatica, right side M54.41 and Other chronic pain G89.29 [facility] [address] [id number] [address] [place] [id number] 16 Nov, 2015 Deficiency of other specifie d B group vitamins E53.8 ; Primary insomnia F51.01 ; Mood disorder F39 and Lumbago with sciatica, right side M54.41 [facility] [address] [place] [id number] [address] [place] [address] 13 Nov, 2015 Hyperparathyroidism E21.3 [facility] [address] [place] [id number] [address] [place] [phone] Nov, Unspecified kidney failure N 19 and Hyperparathyroidism E21.3 [facility] [address] [place] [id number] [address] [place] [phone] October, Hyperparathyroidism E21.3 [place] [address] [place] [id number] [place] [address] October, [place] [address] [address] October, Hyperparathyroidism E21.3 [place] [address] [place] [id number] [place] [address] October, Hyperparathyroidism E21.3 [place] [address] [address] Sep, Hyperparathyroidism E21.3 ; Hypercholesterolemia E78.0 and Arthritis M19.90 [place] [id number] [place] [address] Aug, [facility] [address] [place] [id number] [address] [place] [phone] Aug, Deficiency of other specifie d B group vitamins E53.8 [facility] [address] [facility] [id number] [address] [place] [phone] 07 Aug, 2015 [facility] [address] [place] [id number] [address] [place] [id number] Jul, Urinary frequency R35.0 [place] [address] [place] [id number] [place] [phone] Jul, Urinary frequency R35.0 [facility] [address] [facility] [id number] [address] [place] [phone] Jul, [facility] [address] [facility] [id number] [address] [place] [phone] Jul, [facility] [address] [facility] [id number] [address] [place] [address] Jun, Pain in left knee M25.562 [facility] [address] [id number] [address] [place] [phone] Jun, [facility] [address] [facility] [id number] [address] [place] [address] May, Swelling of left knee joint M25.462 [facility] [address] [facility] [id number] [address] [place] [address] May, [facility] [address] [facility] [id number] [address] [place] [phone] May, [facility] [address] [facility] [id number] [address] [place] [phone] May, [facility] [address] [facility] [id number] [address] [place] [id number] Apr, Renal insufficiency N28.9 an d Chronic kidney disease, stage 4 (severe) N18.4 [facility] [address] [facility] [id number] [address] [place] [phone] Apr, Unspecified kidney failure N 19 [facility] [address] [facility] [id number] [address] [place] [address] Apr, Unspecified kidney failure N 19 [facility] [address] [facility] [id number] [address] [place] [address] Apr, [facility] [address] [facility] [id number] [address] [place] [address] Apr, Hyperparathyroidism, unspeci fied 252.00 [facility] [address] [place] [id number] [address] [place] [phone] Apr, [facility] [address] [id number] [address] [place] [phone] Mar, [facility] [address] [id number] [address] [place] [phone] Mar, [facility] [address] [facility] [id number] [address] [place] [id number] Mar, Hyperparathyroidism, unspeci fied 252.00 [facility] [address] [id number] [address] [place] [address] Feb, [facility] [address] [id number] [address] [place] [phone] Feb, Otalgia 388.70 [facility] [address] [facility] [id number] [address] [place] [phone] Feb, [facility] [address] [facility] [id number] [address] [place] [phone] Feb, [facility] [address] [id number] [address] [place] [phone] Jan, [facility] [address] [facility] [id number] [address] [place] [phone] Jan, Hyperparathyroidism, unspeci fied 252.00 [facility] [address] [facility] [id number] [address] [place] [phone] Jan, [facility] [address] [facility] [id number] [address] [place] [phone] Jan, Other B-complex deficiencies 266.2 and Hyperparathyroidism, unspecified 252.00 [facility] [address] [id number] [address] [place] [phone] Jan, [facility] [address] [facility] [id number] [address] [place] [id number] Jan, [facility] [address] [id number] [address] [place] [id number] Jan, [facility] [address] [id number] [address] [place] [id number] Dec, [facility] [address] [id number] [address] [place] [id number] Dec, [facility] [address] [id number] [address] [place] [phone] Dec, [facility] [address] [id number] [address] [place] [phone] Nov, Routine check-up V70.0 and P re-op exam V72.84 [facility] [address] [id number] [address] [place] [id number] Nov, [facility] [address] [id number] [address] [place] [phone] Nov, [facility] [address] [id number] [address] [place] [phone] October, [facility] [address] [id number] [address] [place] [id number] October, Other B-complex deficiencies 266.2 [facility] [address] [id number] [address] [place] [phone] October, [facility] [address] [id number] [address] [place] [phone] Sep, [facility] [address] [id number] [address] [place] [phone] Sep, [facility] [address] [id number] [address] [place] [phone] Aug, [facility] [address] [id number] [address] [place] [phone] Aug, [facility] [address] [id number] [address] [place] [phone] Aug, [facility] [address] [id number] [address] [place] [address], [place] [address] 17 Aug, 2014 [facility] [address] [id number] [address] [place] [address], [place] [address] 11 Aug, 2014 [facility] [address] [id number] [address] [place] [address], [place] [address] Aug, 2014 [facility] [address] [id number] [address] [place] [address], [place] [address] 18 Jul, 2014 [facility] [address] [id number] [address] [place] [address], [place] [address] Jul, 2014 [facility] [address] [id number] [address] [place] [address], [place] [address] Jul, 2014 [facility] [address] [id number] [address] [place] [address], [place] [address] Jul, 2014 [facility] [address] [id number] [address] [place] [address], [place] [address] Jul, 2014 [facility] [address] [id number] [address] [place] [address], [place] [address] Jul, 2014 [facility] [address] [id number] [address] [place] [address], [place] [address] 10 Jul, 2014 [facility] [address] [id number] [address] [place] [address], [place] [address] 10 Jul, 2014 [facility] [address] [id number] [address] [place] [address], [place] [address] Jul, 2014 [facility] [address] [id number] [address] [place] [address], [place] [address] Jul, 2014 [facility] [address] [id number] [address] [place] [address], [place] [address] Jul, 2014 [facility] [address] [id number] [address] [place] [phone] Jul, 2014 [facility] [address] [id number] [address] [place] [address], [place] [address] Jul, [facility] [facility] [address] [id number] [address] [place] [address], [place] [address] Jul, [facility] [address] [id number] [address] [place] [address], [place] [address] Jun, [facility] [address] [id number] [address] [place] [address], [place] [address] Jun, [facility] [address] [id number] [address] [place] [address], [place] [address] Jun, [facility] [address] [id number] [address] [place] [address], [place] [address] Jun, [facility] [address] [id number] [address] [place] [address], [place] [address] Jun, [facility] [address] [id number] [address] [place] [address], [place] [address] Jun, [facility] [address] [id number] [address] [place] [address], [place] [address] Jun, [facility] [address] [id number] [address] [place] [address], [place] [address] Jun, [facility] [address] [id number] [address] [place] [address], [place] [address] Jun, [facility] [address] [id number] [address] [place] [address], [place] [address] Jun, [facility] [address] [id number] [address] [place] [address], [place] [address] Jun, [facility] [address] [id number] [address] [place] [address], [place] [address] Jun, [facility] [address] [id number] [address] [place] [address], [place] [address] Jun, [facility] [address] [id number] [address] [place] [address], [place] [address] Jun, [facility] [address] [id number] [address] [place] [address], [place] [address] 15 May, 2014 [facility] [address] [id number] [address] [place] [address], [place] [address] May, [facility] [address] [id number] [address] [place] [address], [place] [address] May, [facility] [address] [id number] [address] [place] [address], [place] [address] May, [facility] [address] [id number] [address] [place] [address], [place] [address] Apr, [facility] [address] [id number] [address] [place] [address], [place] [address] Apr, [facility] [address] [id number] [address] [place] [address], [place] [address] Apr, [facility] [address] [id number] [address] [place] [address], [place] [address] Apr, [facility] [address] [id number] [address] [place] [address], [place] [address] Apr, [facility] [address] [id number] [address] [place] [address], [place] [address] Apr, [facility] [address] [id number] [address] [place] [address], [place] [address] Mar, [facility] [address] [id number] [address] [place] [address], [place] [address] Mar, [facility] [address] [id number] [address] [place] [address], [place] [address] Mar, [facility] [address] [id number] [address] [place] [address], [place] [address] Mar, [facility] [address] [id number] [address] [place] [address], [place] [address] Mar, [facility] [address] [id number] [address] [place] [address], [place] [address] Mar, [facility] [address] [id number] [address] [place] [address], [place] [address] 13 Mar, 2014 [facility] [address] [id number] [address] [place] [address], [place] [address] Mar, [facility] [address] [id number] [address] [place] [address], [place] [address] Mar, 2013 [facility] [address] [id number] [address] [place] [address], [place] [address] Mar, 2013 [facility] [address] [id number] [address] [place] [address], [place] [address] Mar, [facility] [address] [id number] [address] [place] [address], [place] [address] Mar, [facility] [address] [id number] [address] [place] [address], [place] [address] Mar, [facility] [address] [id number] [address] [place] [address], [place] [address] 26 Feb, 2013 [facility] [address] [id number] [address] [place] [address], [place] [address] 26 Feb, 2013 [facility] [address] [id number] [address] [place] [address], [place] [address] 23 Feb, 2013 [facility] [address] [id number] [address] [place] [address], [place] [address] 23 Feb, 2013 [facility] [address] [id number] [address] [place] [address], [place] [address] 19 Feb, 2013 [facility] [address] [id number] [address] [place] [address], [place] [address] 19 Feb, 2013 [facility] [address] [id number] [address] [place] [address], [place] [address] 13 Feb, 2013 [facility] [address] [id number] [address] [place] [address], [place] [address] 13 Feb, 2013 [facility] [address] [id number] [address] [place] [address] [place] [address] Feb, [facility] [address] [id number] [address] [place] [address], [place] [address] Feb, [facility] [address] [id number] [address] [place] [address], [place] [address] Jan, [facility] [address] [id number] [address] [place] [address], [place] [address] Jan, [facility] [address] [id number] [address] [place] [address], [place] [address] Dec, [facility] [address] [id number] [address] [place] [address], [place] [address] Dec, [facility] [address] [id number] [address] [place] [address], [place] [address] Dec, [facility] [address] [id number] [address] [place] [address], [place] [address] Dec, [facility] [address] [id number] [address] [place] [address], [place] [address] Dec, [facility] [address] [id number] [address] [place] [address], [place] [address] Dec, [facility] [address] [id number] [address] [place] [address], [place] [address] Nov, [facility] [address] [id number] [address] [place] [address], [place] [address] Nov, [facility] [address] [id number] [address] [place] [address], [place] [address] Nov, [facility] [address] [id number] [address] [place] [address], [place] [address] Nov, [facility] [address] [id number] [address] [place] [address], [place] [address] October, [facility] [address] [id number] [address] [place] [address], [place] [address] October, [facility] [address] [id number] [address] [place] [address], [place] [address] October, [facility] [address] [id number] [address] [place] [address], [place] [address] October, [facility] [address] [id number] [address] [place] [address], [place] [address] October, [facility] [address] [id number] [address] [place] [address], [place] [address] October, [facility] [address] [id number] [address] [place] [address], [place] [address] October, [facility] [address] [id number] [address] [place] [address], [place] [address] October, [facility] [address] [id number] [address] [place] [address], [place] [address] October, [facility] [address] [id number] [address] [place] [address], [place] [address] October, [facility] [address] [id number] [address] [place] [address], [place] [address] October, [facility] [address] [id number] [address] [place] [address], [place] [address] October, [facility] [address] [id number] [address] [place] [address], [place] [address] October, [facility] [address] [id number] [address] [place] [address], [place] [address] October, [facility] [address] [id number] [address] [place] [address], [place] [address] October, [facility] [address] [id number] [address] [place] [address], [place] [address] October, [facility] [address] [id number] [address] [place] [address], [place] [address] Sep, [facility] [address] [id number] [address] [place] [address], [place] [address] Sep, [facility] [address] [id number] [facility] [place] [address] Sep, [facility] [address] [id number] [address] [place] [address], [place] [address] Sep, [facility] [address] [id number] [facility] [place] [address] Sep, [facility] [address] [id number] [address] [place] [address], [place] [address] Sep, [facility] [address] [id number] [facility] [place] [address] Aug, [facility] [address] [id number] [address] [place] [address], [place] [address] Aug, [facility] [address] [id number] [address] [place] [address], [place] [address] Aug, [facility] [address] [id number] [address] [place] [address], [place] [address] Aug, [facility] [address] [id number] [address] [place] [address], [place] [address] Aug, [facility] [address] [id number] [address] [place] [address], [place] [address] Aug, [facility] [address] [id number] [address] [place] [address], [place] [address] Jul, [facility] [address] [id number] [address] [place] [address], [place] [address] Jul, [facility] [address] [id number] [address] [place] [address], [place] [address] Jul, [facility] [address] [id number] [address] [place] [address], [place] [address] Jul, [facility] [address] [id number] [address] [place] [address], [place] [address] Jun, [facility] [address] [id number] [address] [place] [address], [place] [address] 13 Jun, 2013 [facility] [address] [id number] [address] [place] [address], [place] [address] 11 May, 2013 [facility] [address] [id number] [address] [place] [address], [place] [address] 11 May, 2013 [facility] [address] [id number] [address] [place] [address], [place] [address] May, [facility] [address] [id number] [address] [place] [address], [place] [address] May, [facility] [address] [id number] [address] [place] [address], [place] [address] May, [facility] [address] [id number] [address] [place] [address], [place] [address] Apr, [facility] [address] [id number] [address] [place] [address], [place] [address] Apr, [facility] [address] [id number] [address] [place] [address], [place] [address] Apr, [facility] [address] [id number] [address] [place] [address], [place] [address] Apr, [facility] [address] [id number] [address] [place] [address], [place] [address] 04 Apr, 2013 [facility] [address] [id number] [address] [place] [address], [place] [address] 04 Apr, 2013 [facility] [address] [id number] [address] [place] [address], [place] [address] 15 Mar, 2013 [facility] [address] [id number] [address] [place] [address], [place] [address] 15 Mar, 2013 [facility] [address] [id number] [address] [place] [address], [place] [address] 14 Mar, 2013 [facility] [address] [id number] [address] [place] [address], [place] [address] Mar, [facility] [address] [id number] [address] [place] [address], [place] [address] Mar, [facility] [address] [id number] [address] [place] [address], [place] [address] Mar, [facility] [address] [id number] [address] [place] [address], [place] [address] Feb, [facility] [address] [id number] [address] [place] [address], [place] [address] Feb, [facility] [address] [id number] [address] [place] [address], [place] [address] Feb, [facility] [address] [id number] [address] [place] [address], [place] [address] Jan, [facility] [address] [id number] [address] [place] [address], [place] [address] Jan, [facility] [address] [id number] [address] [place] [address], [place] [address] Jan, [facility] [address] [id number] [address] [place] [address], [place] [address] Jan, [facility] [address] [id number] [address] [place] [address], [place] [address] Jan, [facility] [address] [id number] [address] [place] [address], [place] [address] Jan, [facility] [address] [id number] [address] [place] [address], [place] [address] Dec, [facility] [address] [id number] [address] [place] [address], [place] [address] Dec, [facility] [address] [id number] [address] [place] [address], [place] [address] Dec, [facility] [address] [id number] [address] [place] [address], [place] [address] Dec, [facility] [address] [id number] [address] [place] [address], [place] [address] 18 Dec, 2012 [facility] [address] [id number] [address] [place] [address], [place] [address] 09 Dec, 2012 [facility] [address] [id number] [address] [place] [address], [place] [address] Nov, [facility] [address] [id number] [address] [place] [address], [place] [address] Nov, [facility] [address] [id number] [address] [place] [address], [place] [address] 18 Nov, 2012 [facility] [address] [id number] [address] [place] [address], [place] [address] Nov, [facility] [address] [id number] [address] [place] [address], [place] [address] Nov, [facility] [address] [id number] [address] [place] [address], [place] [address] Nov, [facility] [address] [id number] [address] [place] [address], [place] [address] October, [facility] [address] [id number] [address] [place] [address], [place] [address] October, [facility] [address] [id number] [address] [place] [address], [place] [address] October, [facility] [address] [id number] [address] [place] [address], [place] [address] October, [facility] [address] [id number] [address] [place] [address], [place] [address] October, [facility] [address] [id number] [address] [place] [address], [place] [address] Sep, [facility] [address] [id number] [address] [place] [address], [place] [address] Sep, [facility] [address] [id number] [address] [place] [address], [place] [address] Sep, [facility] [address] [id number] [address] [place] [address], [place] [address] 18 Sep, 2012 [facility] [address] [id number] [address] [place] [address], [place] [address] 09 Sep, 2012 [facility] [address] [id number] [address] [place] [address], [place] [address] 26 Aug, 2012 [facility] [address] [id number] [address] [place] [address], [place] [address] 07 Aug, 2012 [facility] [address] [id number] [address] [place] [address], [place] [address] 04 Aug, 2012 [facility] [address] [id number] [address] [place] [address], [place] [address] Jul, [facility] [address] [id number] [address] [place] [address], [place] [address] Jul, [facility] [address] [id number] [address] [place] [address], [place] [address] Jul, [facility] [address] [id number] [address] [place] [address], [place] [address] 08 Jul, 2012 [facility] [address] [id number] [address] [place] [address], [place] [address] 06 Jul, 2012 [facility] [address] [id number] [address] [place] [address], [place] [address] 05 Jul, 2012 [facility] [address] [id number] [address] [place] [address], [place] [address] 15 Jun, 2012 [facility] [address] [id number] [address] [place] [address], [place] [address] Apr, [facility] [address] [id number] [address] [place] [address], [place] [address] 16 Apr, 2012 [facility] [address] [id number] [address] [place] [address], [place] [address] 12 Apr, 2012 [facility] [address] [id number] [address] [place] [id number] Apr, [facility] [address] [id number] [address] [place] [address], [place] [address] Mar, [facility] [address] [id number] [address] [place] [address], [place] [address] Mar, [facility] [address] [id number] [address] [place] [address], [place] [address] Mar, [facility] [address] [id number] [address] [place] [address], [place] [address] Mar, [facility] [address] [id number] [address] [place] [address], [place] [address] Mar, [facility] [address] [id number] [address] [place] [address], [place] [address] Feb, [facility] [address] [id number] [address] [place] [address], [place] [address] Jan, [facility] [address] [id number] [address] [place] [address], [place] [address] Jan, [facility] [address] [id number] [address] [place] [id number] Jan, [facility] [address] [id number] [address] [place] [id number] Dec, [facility] [address] [id number] [address] [place] [id number] Nov, [facility] [address] [id number] [address] [place] [id number] Nov, [facility] [address] [id number] [address] [place] [address] Nov, [facility] [address] [id number] [address] [place] [address] Nov, [facility] [address] [id number] [address] [place] [address], [place] [address] Nov, [facility] [address] [facility] [id number] [address] [place] [phone] October, [facility] [address] [facility] [id number] [address] [place] [id number] October, [facility] [address] [facility] [id number] [address] [place] [id number] October, [facility] [address] [facility] [id number] [address] [place] [id number] October, [facility] [address] [facility] [id number] [address] [place] [id number] October, IMMUNIZATIONS No Known Immunizations SOCIAL HISTORY Never Assessed REASON FOR VISIT Controlled Med Refill 04/09/18 PLAN OF CARE VITAL SIGNS MEDICATIONS Medication [...]
--- OUTSIDE RECORDS SUMMARY | 2020-01-25 08:01 | XMS REPORT ---
Author Author Velma CORDERO Organization [facility] Address [address] [place] [address] Care Team Providers Care Nail Welter Name Role Phone STEPHAN CORDERO Unavailable PROBLEMS Type Condition ICD9-CM Code TRP57-IY Code Onset Dates Condition S tatus SNOMED Code Problem Hypercholesteremia E78.0 Active 1 3999753 Problem Arthritis M19.90 Active 1149840 Problem Hyperparathyroidism E21.3 Active 67547104 Problem Primary insomnia F51.01 Active 397 2004 Problem Myalgia M79.1 Active 29709166 Problem Chronic kidney disease, stage 4 (severe) N18.4 Active 269250474 Problem BPV (benign positional vertigo), bilateral H81.13 Active 329948874 Problem Corns L84 Active 795740413 Problem Mood disorder F39 Active 705869 05 Problem 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 Active 99456111 Problem 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 Active 45469974 ALLERGIES Substance Reaction Event Type Date Status Ibuprofen no anti inflammatories Drug Allergy Mar, Activ e Cymbalta nausea and vomiting Drug Allergy Mar, Active Clonidine HCl blurry vision/weakness Drug Allergy Mar, Acti ve ENCOUNTERS Encounter Location Date Diagnosis [place] [id number] [place] [phone] Apr, [place] [id number] [address] [place] [id number] Mar, Labyrinthitis of left ear H8 3.02 [place] [address] [place] [id number] [address] [place] [id number] Mar, Chronic kidney disease, stag e 4 (severe) N18.4 ; Knee pain, left anterior M25.562 ; 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 and Encounter for immunization Z23 [place] [address] [facility] [id number] [address] [place] [id number] Mar, Arthritis M19.90 [facility] [address] [facility] [id number] [address] [place] [id number] Feb, Labyrinthitis of left ear H8 3.02 [facility] [address] [facility] [id number] [address] [place] [id number] Feb, Arthritis M19.90 [facility] [address] [id number] [address] [place] [id number] Jan, Labyrinthitis of left ear H8 3.02 [facility] [address] [facility] [id number] [address] [place] [id number] Jan, Arthritis M19.90 [facility] [address] [facility] [id number] [address] [place] [id number] Dec, Labyrinthitis of left ear H8 3.02 [facility] [address] [facility] [id number] [address] [place] [phone] Nov, Arthritis M19.90 [facility] [address] [facility] [id number] [address] [place] [id number] Nov, Labyrinthitis of left ear H8 3.02 [facility] [address] [facility] [id number] [address] [place] [id number] Nov, BMI 40.0-44.9, adult Z68.41 ; Chronic kidney disease, stage 4 (severe) N18.4 and Acute right-sided thoracic back pain M54.6 [facility] [address] [facility] [id number] [address] [place] [id number] October, Labyrinthitis of left ear H8 3.02 and Arthritis M19.90 [facility] [address] [facility] [id number] [address] [place] [phone] Sep, BPV (benign positional verti go), bilateral H81.13 ; Dysfunction of left eustachian tube H69.82 and BMI 40.0-44.9, adult Z68.41 [facility] [address] [id number] [address] [place] [id number] Sep, Labyrinthitis of left ear H8 3.02 and Arthritis M19.90 [facility] [address] [id number] [address] [place] [id number] Sep, [facility] [address] [id number] [address] [place] [id number] Sep, [facility] [address] [id number] [address] [place] [id number] Sep, Chronic kidney disease, stag e 4 (severe) N18.4 [facility] [address] [id number] [address] [place] [id number] Sep, Chronic kidney disease, stag e 4 (severe) N18.4 [facility] [address] [id number] [address] [place] [id number] Aug, Labyrinthitis of left ear H8 3.02 and Arthritis M19.90 [facility] [address] [id number] [address] [place] [phone] Aug, [facility] [address] [id number] [address] [place] [id number] Jul, [facility] [address] [id number] [address] [place] [id number] Jul, Arthritis M19.90 and Labyrin thitis of left ear H83.02 [facility] [address] [id number] [address] [place] [id number] Jul, [facility] [address] [id number] [address] [place] [id number] Jun, [facility] [address] [id number] [address] [place] [id number] Jun, Arthritis M19.90 and Labyrin thitis of left ear H83.02 [place] [address] [address] Jun, Pre-op evaluation Z01.818 ; BMI 40.0-44.9, adult Z68.41 and Encounter for immunization Z23 [place] [address] [address] May, Arthritis M19.90 and Labyrin thitis of left ear H83.02 [place] [address] [address] Apr, Labyrinthitis of left ear H8 3.02 [place] [address] [address] Apr, Arthritis M19.90 and Labyrin thitis of left ear H83.02 [place] [address] [address] Mar, Arthritis M19.90 and Labyrin thitis of left ear H83.02 [place] [address] [address] Mar, Chronic kidney disease, stag e 4 (severe) N18.4 [place] [address] [address] Feb, Arthritis M19.90 and Labyrin thitis of left ear H83.02 [place] [address] [address] Jan, Labyrinthitis of left ear H8 3.02 and 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 [place] [address] [address] Dec, Arthritis M19.90 [place] [address] [place] [id number] [place] [id number] Dec, BPV (benign positional verti go), bilateral H81.13 [place] [address] [place] [id number] [address] [place] [id number] Dec, [facility] [address] [id number] [address] [place] [phone] Dec, [facility] [address] [facility] [id number] [address] [place] [id number] Dec, [facility] [address] [facility] [id number] [address] [place] [id number] Nov, Arthritis M19.90 and Deficie ncy of other specified B group vitamins E53.8 [facility] [address] [id number] [address] [place] [id number] Nov, Arthritis M19.90 [facility] [address] [facility] [id number] [address] [place] [id number] Nov, Hyperparathyroidism E21.3 [facility] [address] [facility] [id number] [address] [place] [id number] October, [facility] [address] [id number] [address] [place] [id number] October, Hyperparathyroidism E21.3 [facility] [address] [facility] [id number] [address] [place] [id number] October, [facility] [address] [facility] [id number] [address] [place] [id number] October, Renal insufficiency N28.9 an d Hyperparathyroidism E21.3 [facility] [address] [facility] [id number] [address] [place] [phone] October, [facility] [address] [facility] [id number] [address] [place] [id number] October, Renal insufficiency N28.9 an d Hyperparathyroidism E21.3 [facility] [address] [facility] [id number] [address] [place] [id number] October, Arthritis M19.90 [facility] [address] [facility] [id number] [address] [place] [id number] Sep, [facility] [address] [place] [id number] [address] [place] [address] Sep, Lumbar neuritis M54.16 ; Tho racic abscess J86.9 and 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 [facility] [address] [place] [id number] [address] [place] [address] Sep, [facility] [address] [address] Aug, Arthritis M19.90 [facility] [address] [address] Aug, Hyperparathyroidism E21.3 [facility] [address] [address] Aug, Hyperparathyroidism E21.3 [facility] [address] [address] Aug, Arthritis M19.90 [facility] [address] [address] Jul, Mass of throat R22.1 [facility] [address] [address] Jul, [facility] [address] [address] Jul, Arthritis M19.90 [facility] [address] [address] Jun, Arthritis M19.90 [facility] [address] [address] Jun, [facility] [address] [address] Jun, Renal insufficiency N28.9 an d 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 [facility] [address] [place] [id number] [address] [place] [address] Jun, Medicare welcome exam Z00.00 ; Encounter for immunization Z23 ; Arthritis M19.90 ; Medicare annual wellness visit, initial Z00.00 ; Medicare annual wellness visit, subsequent Z00.00 and 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 [facility] [address] [id number] [address] [place] [id number] 29 May, 2016 Renal insufficiency N28.9 an d 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 [facility] [address] [id number] [address] [place] [phone] 19 May, 2016 Renal insufficiency N28.9 [facility] [address] [facility] [id number] [address] [place] [phone] May, Renal insufficiency N28.9 [facility] [address] [facility] [id number] [address] [place] [address] May, [facility] [address] [facility] [id number] [address] [place] [id number] Apr, [facility] [address] [id number] [address] [place] [phone] Apr, [facility] [address] [facility] [id number] [address] [place] [id number] Apr, Mass of throat R22.1 [facility] [address] [facility] [id number] [address] [place] [id number] Apr, [facility] [address] [id number] [address] [place] [phone] Apr, Mass of throat R22.1 [facility] [address] [facility] [id number] [address] [place] [phone] Apr, Mass of throat R22.1 [facility] [address] [facility] [id number] [address] [place] [id number] Mar, [facility] [address] [facility] [id number] [address] [place] [id number] Mar, [facility] [address] [id number] [address] [place] [phone] Mar, [facility] [address] [id number] [address] [place] [id number] Mar, Parathyroid abnormality E21. 5 and Encounter for immunization Z23 [facility] [address] [facility] [id number] [address] [place] [id number] Mar, [facility] [address] [facility] [id number] [address] [place] [phone] Mar, [facility] [address] [facility] [id number] [address] [place] [id number] 21 Feb, 2016 Renal insufficiency N28.9 an d Hyperparathyroidism E21.3 [facility] [address] [facility] [id number] [address] [place] [id number] 19 Feb, 2016 [facility] [address] [facility] [id number] [address] [place] [id number] 15 Feb, 2016 Renal insufficiency N28.9 an d Hyperparathyroidism E21.3 [facility] [address] [facility] [id number] [address] [place] [id number] 14 Feb, 2016 [facility] [address] [facility] [id number] [address] [place] [id number] 12 Feb, 2016 [facility] [address] [facility] [id number] [address] [place] [id number] Feb, [facility] [address] [facility] [id number] [address] [place] [id number] Jan, [facility] [address] [facility] [id number] [address] [place] [address] Jan, Arthritis M19.90 ; Lumbago w ith sciatica, right side M54.41 and Other chronic pain G89.29 [facility] [address] [facility] [id number] [address] [place] [phone] Jan, [facility] [address] [facility] [id number] [address] [place] [phone] Dec, Arthritis M19.90 ; Lumbago w ith sciatica, right side M54.41 and Other chronic pain G89.29 [place] [address] [facility] [id number] [address] [place] [phone] 16 Nov, 2015 Deficiency of other specifie d B group vitamins E53.8 ; Primary insomnia F51.01 ; Mood disorder F39 and Lumbago with sciatica, right side M54.41 [place] [address] [facility] [id number] [address] [place] [id number] Nov, Hyperparathyroidism E21.3 [place] [address] [facility] [id number] [address] [place] [id number] Nov, Unspecified kidney failure N 19 and Hyperparathyroidism E21.3 [place] [address] [facility] [id number] [address] [place] [address] October, Hyperparathyroidism E21.3 [place] [address] [place] [id number] [address] [place] [phone] October, [facility] [address] [facility] [id number] [address] [place] [id number] October, Hyperparathyroidism E21.3 [place] [address] [facility] [id number] [address] [place] [phone] October, Hyperparathyroidism E21.3 [facility] [address] [facility] [id number] [address] [place] [address] Sep, Hyperparathyroidism E21.3 ; Hypercholesterolemia E78.0 and Arthritis M19.90 [facility] [address] [facility] [id number] [address] [place] [phone] Aug, [place] [address] [facility] [id number] [address] [place] [address] Aug, Deficiency of other specifie d B group vitamins E53.8 [facility] [address] [facility] [id number] [address] [place] [phone] Aug, [facility] [address] [facility] [id number] [address] [place] [id number] Jul, Urinary frequency R35.0 [facility] [address] [id number] [address] [place] [id number] Jul, Urinary frequency R35.0 [facility] [address] [id number] [address] [place] [phone] Jul, [facility] [address] [facility] [id number] [address] [place] [id number] Jul, [facility] [address] [id number] [address] [place] [address] Jun, Pain in left knee M25.562 [facility] [address] [facility] [id number] [address] [place] [phone] Jun, [facility] [address] [facility] [id number] [address] [place] [id number] May, Swelling of left knee joint M25.462 [facility] [address] [id number] [address] [place] [phone] May, [facility] [address] [facility] [id number] [address] [place] [phone] May, [facility] [address] [facility] [id number] [address] [place] [phone] May, [facility] [address] [facility] [id number] [address] [place] [address] Apr, Renal insufficiency N28.9 an d Chronic kidney disease, stage 4 (severe) N18.4 [facility] [address] [id number] [address] [place] [phone] Apr, Unspecified kidney failure N 19 [facility] [address] [facility] [id number] [address] [place] [id number] Apr, Unspecified kidney failure N 19 [facility] [address] [facility] [id number] [address] [place] [address] Apr, [facility] [address] [facility] [id number] [address] [place] [address] Apr, Hyperparathyroidism, unspeci fied 252.00 [facility] [address] [facility] [id number] [address] [place] [id number] Apr, [facility] [address] [facility] [id number] [address] [place] [address] Mar, [facility] [address] [facility] [id number] [address] [place] [id number] Mar, [facility] [address] [facility] [id number] [address] [place] [id number] Mar, Hyperparathyroidism, unspeci fied 252.00 [facility] [address] [facility] [id number] [address] [place] [id number] Feb, [facility] [address] [facility] [id number] [address] [place] [phone] Feb, Otalgia 388.70 [facility] [address] [facility] [id number] [address] [place] [phone] Feb, [facility] [address] [facility] [id number] [address] [place] [phone] Feb, [facility] [address] [facility] [id number] [address] [place] [id number] Jan, [facility] [address] [facility] [id number] [address] [place] [id number] Jan, Hyperparathyroidism, unspeci fied 252.00 [facility] [address] [facility] [id number] [address] [place] [id number] Jan, [facility] [address] [facility] [id number] [address] [place] [address] Jan, Other B-complex deficiencies 266.2 and Hyperparathyroidism, unspecified 252.00 [facility] [address] [facility] [id number] [address] [place] [phone] Jan, [facility] [address] [id number] [address] [place] [phone] Jan, [facility] [place] [address] [id number] [address] [place] [phone] Jan, [facility] [place] [address] [id number] [address] [place] [phone] Dec, [facility] [place] [address] [id number] [address] [place] [phone] Dec, [facility] [place] [address] [id number] [address] [place] [id number] Dec, [facility] [place] [address] [id number] [address] [place] [id number] Nov, Routine check-up V70.0 and P re-op exam V72.84 [facility] [address] [id number] [address] [place] [id number] Nov, [facility] [address] [id number] [address] [place] [id number] Nov, [facility] [place] [address] [id number] [address] [place] [id number] October, [facility] [place] [address] [id number] [address] [place] [id number] October, Other B-complex deficiencies 266.2 [facility] [address] [id number] [address] [place] [id number] October, [facility] [address] [id number] [address] [place] [id number] Sep, [facility] [place] [address] [id number] [address] [place] [id number] Sep, [facility] [place] [address] [id number] [address] [place] [id number] Aug, [facility] [place] [address] [id number] [address] [place] [id number] Aug, [facility] [address] [id number] [facility] [place] [id number] 17 Aug, 2014 [facility] [address] [id number] [address] [place] [address], [place] [id number] 17 Aug, 2014 [facility] [address] [id number] [address] [place] [address], [place] [id number] Aug, 2014 [facility] [address] [id number] [address] [place] [address], [place] [id number] Aug, 2014 [facility] [address] [id number] [address] [place] [address], [place] [id number] Jul, 2014 [facility] [address] [id number] [address] [place] [address], [place] [id number] Jul, 2014 [facility] [address] [id number] [address] [place] [address], [place] [id number] 17 Jul, 2014 [facility] [address] [id number] [address] [place] [address], [place] [id number] Jul, 2014 [facility] [address] [id number] [address] [place] [address], [place] [id number] Jul, 2014 [facility] [address] [id number] [address] [place] [address], [place] [id number] Jul, 2014 [facility] [address] [id number] [address] [place] [address], [place] [id number] 10 Jul, 2014 [facility] [address] [id number] [address] [place] [address], [place] [id number] Jul, 2014 [facility] [address] [id number] [address] [place] [address], [place] [id number] Jul, 2014 [facility] [address] [id number] [address] [place] [address], [place] [id number] Jul, 2014 [facility] [address] [id number] [address] [place] [address], [place] [id number] 06 Jul, 2014 [facility] [address] [id number] [address] [place] [address], [place] [address] Jul, [facility] [address] [id number] [address] [place] [address], [place] [phone] Jul, [facility] [address] [id number] [address] [place] [address], [place] [address] Jul, [facility] [address] [id number] [address] [place] [address], [place] [address] Jun, [facility] [address] [id number] [address] [place] [address], [place] [phone] Jun, [facility] [address] [id number] [address] [place] [address], [place] [phone] Jun, [facility] [address] [id number] [address] [place] [address], [place] [phone] Jun, [facility] [address] [id number] [address] [place] [address], [place] [address] Jun, [facility] [address] [id number] [address] [place] [address], [place] [id number] Jun, [facility] [address] [id number] [address] [place] [address], [place] [phone] Jun, [facility] [address] [id number] [address] [place] [address], [place] [address] Jun, [facility] [address] [id number] [address] [place] [address], [place] [id number] Jun, [facility] [address] [id number] [address] [place] [address], [place] [id number] Jun, [facility] [address] [id number] [address] [place] [address], [place] [address] Jun, [facility] [address] [id number] [address] [place] [address], [place] [address] Jun, [facility] [address] [id number] [address] [place] [address], [place] [id number] Jun, [facility] [address] [id number] [address] [place] [address], [place] [id number] Jun, [facility] [address] [id number] [address] [place] [address], [place] [id number] May, [facility] [address] [id number] [address] [place] [address], [place] [id number] May, [facility] [address] [id number] [address] [place] [address], [place] [id number] May, [facility] [address] [id number] [address] [place] [address], [place] [address] May, [facility] [address] [id number] [address] [place] [address], [place] [address] Apr, [facility] [address] [id number] [address] [place] [address], [place] [id number] Apr, [facility] [address] [id number] [address] [place] [address], [place] [phone] Apr, [facility] [address] [id number] [address] [place] [address], [place] [id number] Apr, [facility] [address] [id number] [address] [place] [address], [place] [phone] Apr, [facility] [address] [id number] [address] [place] [address], [place] [id number] Apr, [facility] [address] [id number] [address] [place] [address], [place] [address] Mar, [facility] [address] [id number] [address] [place] [address], [place] [address] Mar, [facility] [address] [id number] [address] [place] [address], [place] [id number] Mar, [facility] [address] [id number] [address] [place] [address], [place] [address] Mar, [facility] [address] [id number] [address] [place] [address], [place] [id number] 15 Mar, 2013 [facility] [address] [id number] [address] [place] [address], [place] [phone] 15 Mar, 2014 [facility] [address] [id number] [address] [place] [address], [place] [id number] 13 Mar, 2013 [facility] [address] [id number] [address] [place] [address], [place] [address] 13 Mar, 2013 [facility] [address] [id number] [address] [place] [address], [place] [id number] 07 Mar, 2013 [facility] [address] [id number] [address] [place] [address], [place] [id number] 07 Mar, 2014 [facility] [address] [id number] [address] [place] [address], [place] [id number] 07 Mar, 2013 [facility] [address] [id number] [address] [place] [address], [place] [id number] 07 Mar, 2013 [facility] [address] [id number] [address] [place] [address], [place] [id number] 06 Mar, 2013 [facility] [address] [id number] [address] [place] [address], [place] [address] 26 Sep, 2013 [facility] [address] [id number] [address] [place] [address], [place] [id number] 26 Sep, 2013 [facility] [address] [id number] [address] [place] [address], [place] [id number] 23 Sep, 2013 [facility] [address] [id number] [address] [place] [address], [place] [id number] 23 Sep, 2013 [facility] [address] [id number] [address] [place] [address], [place] [id number] 19 Sep, 2013 [facility] [address] [id number] [address] [place] [address], [place] [address] 19 Sep, 2013 [facility] [address] [id number] [address] [place] [address], [place] [address] Feb, [facility] [address] [id number] [address] [place] [address], [place] [id number] Feb, [facility] [address] [id number] [address] [place] [address], [place] [id number] Feb, [facility] [address] [id number] [address] [place] [address], [place] [address] Feb, [facility] [address] [id number] [address] [place] [address], [place] [address] Jan, [facility] [address] [id number] [address] [place] [address], [place] [address] Jan, [facility] [address] [id number] [address] [place] [address], [place] [address] Dec, [facility] [address] [id number] [address] [place] [address], [place] [address] Dec, [facility] [address] [id number] [address] [place] [address], [place] [address] Dec, [facility] [address] [id number] [address] [place] [address], [place] [address] Dec, [facility] [address] [id number] [address] [place] [address], [place] [address] Dec, [facility] [address] [id number] [address] [place] [address], [place] [address] Dec, [facility] [address] [id number] [address] [place] [address], [place] [address] Nov, [facility] [address] [id number] [address] [place] [address], [place] [address] Nov, [facility] [address] [id number] [address] [place] [address], [place] [address] Nov, [facility] [address] [id number] [address] [place] [address], [place] [address] Nov, [facility] [address] [id number] [address] [place] [address], [place] [phone] October, [facility] [address] [id number] [facility] [place] [address] October, [facility] [address] [id number] [address] [place] [address], [place] [address] October, [facility] [address] [id number] [address] [place] [address], [place] [phone] October, [facility] [address] [id number] [address] [place] [address], [place] [address] October, [facility] [address] [id number] [address] [place] [address], [place] [address] October, [facility] [address] [id number] [address] [place] [address], [place] [id number] October, [facility] [address] [id number] [address] [place] [address], [place] [address] October, [facility] [address] [id number] [address] [place] [address], [place] [id number] October, [facility] [address] [id number] [address] [place] [address], [place] [id number] October, [facility] [address] [id number] [address] [place] [address], [place] [id number] October, [facility] [address] [id number] [address] [place] [address], [place] [phone] October, [facility] [address] [id number] [address] [place] [address], [place] [address] October, [facility] [address] [id number] [address] [place] [address], [place] [id number] October, [facility] [address] [id number] [address] [place] [address], [place] [id number] October, [facility] [address] [id number] [address] [place] [address], [place] [phone] October, [facility] [address] [id number] [facility] [place] [id number] Sep, [facility] [address] [id number] [facility] [place] [address] Sep, [facility] [address] [id number] [facility] [place] [id number] Sep, [facility] [address] [id number] [address] [place] [address], [place] [address] Sep, [facility] [address] [id number] [address] [place] [address], [place] [id number] Sep, [facility] [address] [id number] [address] [place] [address], [place] [address] Sep, [facility] [address] [id number] [address] [place] [address], [place] [address] Aug, [facility] [address] [id number] [address] [place] [address], [place] [address] Aug, [facility] [address] [id number] [address] [place] [address], [place] [address] Aug, [facility] [address] [id number] [address] [place] [address], [place] [address] Aug, [facility] [address] [id number] [address] [place] [address], [place] [id number] Aug, [facility] [address] [id number] [address] [place] [address], [place] [id number] Aug, [facility] [address] [id number] [address] [place] [address], [place] [id number] Jul, [facility] [address] [id number] [address] [place] [address], [place] [id number] Jul, [facility] [address] [id number] [address] [place] [address], [place] [address] Jul, [facility] [address] [id number] [address] [place] [address] [address] Jul, [facility] [address] [id number] [address] [place] [address], [place] [address] Jun, [facility] [address] [id number] [address] [place] [address], [place] [address] Jun, [facility] [address] [id number] [address] [place] [address], [place] [address] May, [facility] [address] [id number] [address] [place] [address], [place] [address] May, [facility] [address] [id number] [address] [place] [address], [place] [phone] May, [facility] [address] [id number] [address] [place] [address], [place] [address] May, [facility] [address] [id number] [address] [place] [address], [place] [address] May, [facility] [address] [id number] [address] [place] [id number] Apr, [facility] [address] [id number] [address] [place] [address], [place] [address] Apr, [facility] [address] [id number] [address] [place] [id number] Apr, [facility] [address] [id number] [address] [place] [id number] Apr, [facility] [address] [id number] [address] [place] [id number] Apr, [facility] [address] [id number] [address] [place] [address], [place] [phone] Apr, [facility] [address] [id number] [address] [place] [id number] Mar, [facility] [address] [id number] [address] [place] [id number] Mar, [facility] [address] [id number] [address] [place] [address], [place] [address] 14 Mar, 2013 [facility] [address] [id number] [address] [place] [address], [place] [id number] 14 Mar, 2013 [facility] [address] [id number] [address] [place] [address], [place] [address] 11 Mar, 2013 [facility] [address] [id number] [address] [place] [address], [place] [address] 11 Mar, 2013 [facility] [address] [id number] [address] [place] [address], [place] [id number] 23 Feb, 2013 [facility] [address] [id number] [address] [place] [address], [place] [address] Feb, [facility] [address] [id number] [address] [place] [address], [place] [id number] Feb, [facility] [address] [id number] [address] [place] [address], [place] [address] Jan, [facility] [address] [id number] [address] [place] [address], [place] [id number] Jan, [facility] [address] [id number] [address] [place] [address], [place] [address] Jan, [facility] [address] [id number] [address] [place] [address], [place] [address] Jan, [facility] [address] [id number] [address] [place] [address], [place] [phone] Jan, [facility] [address] [id number] [address] [place] [address], [place] [address] Jan, [facility] [address] [id number] [address] [place] [address], [place] [address] Dec, [facility] [address] [id number] [address] [place] [address], [place] [id number] Dec, [facility] [address] [id number] [address] [place] [address], [place] [phone] Dec, [facility] [address] [id number] [address] [place] [address], [place] [address] Dec, [facility] [address] [id number] [address] [place] [address], [place] [address] Dec, [facility] [address] [id number] [address] [place] [address], [place] [phone] Dec, [facility] [address] [id number] [address] [place] [address], [place] [phone] Nov, [facility] [address] [id number] [address] [place] [address], [place] [address] Nov, [facility] [address] [id number] [address] [place] [address], [place] [address] Nov, [facility] [address] [id number] [address] [place] [address], [place] [phone] Nov, [facility] [address] [id number] [address] [place] [address], [place] [phone] Nov, [facility] [address] [id number] [address] [place] [address], [place] [id number] Nov, [facility] [address] [id number] [address] [place] [address], [place] [address] October, [facility] [address] [id number] [address] [place] [address], [place] [phone] October, [facility] [address] [id number] [address] [place] [address], [place] [id number] October, [facility] [address] [id number] [address] [place] [address], [place] [id number] October, [facility] [address] [id number] [address] [place] [address], [place] [id number] October, [facility] [address] [id number] [address] [place] [address], [place] [id number] Sep, [facility] [address] [id number] [address] [place] [id number] 23 Sep, 2012 [facility] [address] [id number] [address] [place] [address], [place] [address] Sep, [facility] [address] [id number] [address] [place] [address], [place] [id number] Sep, [facility] [address] [id number] [address] [place] [address], [place] [id number] Sep, [facility] [address] [id number] [address] [place] [address], [place] [id number] 26 Aug, 2012 [facility] [address] [id number] [address] [place] [address], [place] [id number] 07 Aug, 2012 [facility] [address] [id number] [address] [place] [address], [place] [id number] 04 Aug, 2012 [facility] [address] [id number] [address] [place] [address], [place] [phone] Jul, [facility] [address] [id number] [address] [place] [address], [place] [id number] 20 Jul, 2012 [facility] [address] [id number] [address] [place] [address], [place] [phone] Jul, [facility] [address] [id number] [address] [place] [address], [place] [id number] 08 Jul, 2012 [facility] [address] [id number] [address] [place] [address], [place] [id number] 06 Jul, 2012 [facility] [address] [id number] [address] [place] [address], [place] [id number] 05 Jul, 2012 [facility] [address] [id number] [address] [place] [id number] 15 Jun, 2012 [facility] [address] [id number] [address] [place] [id number] Apr, [facility] [address] [id number] [address] [place] [id number] Apr, [facility] [address] [id number] [address] [place] [address], [place] [id number] Apr, [facility] [address] [id number] [address] [place] [address], [place] [id number] Apr, [facility] [address] [id number] [address] [place] [address], [place] [id number] Mar, [facility] [address] [id number] [address] [place] [address], [place] [phone] Mar, [facility] [address] [id number] [address] [place] [address], [place] [phone] Mar, [facility] [address] [id number] [address] [place] [address], [place] [phone] Mar, [facility] [address] [id number] [address] [place] [address], [place] [id number] Mar, [facility] [address] [id number] [address] [place] [address], [place] [id number] Feb, [facility] [address] [id number] [address] [place] [address], [place] [id number] Jan, [facility] [address] [id number] [address] [place] [address], [place] [id number] Jan, [facility] [address] [id number] [address] [place] [address], [place] [phone] Jan, [facility] [address] [id number] [address] [place] [address], [place] [id number] Dec, [facility] [address] [id number] [address] [place] [address], [place] [id number] Nov, [facility] [address] [id number] [address] [place] [address], [place] [id number] Nov, [facility] [address] [id number] [address] [place] [address], [place] [phone] Nov, [facility] [address] [id number] [address] [id number] Nov, [facility] [address] [facility] [id number] [address] [place] [id number] Nov, [facility] [address] [facility] [id number] [address] [place] [id number] October, [facility] [address] [facility] [id number] [address] [place] [phone] October, [facility] [address] [facility] [id number] [address] [place] [phone] October, [facility] [address] [facility] [id number] [address] [place] [phone] October, [facility] [address] [facility] [id number] [address] [place] [phone] October, IMMUNIZATIONS Vaccine Route Administration Date Status FLULAVAL QUAD 0.5ML (6 MO & UP) 2018 IM Intramuscular Apr 02 Administered B12, VITAMIN (UP TO 1000 MCG) IM Intramuscular Apr 02, 2018 A dministered SOCIAL HISTORY Never Assessed REASON FOR VISIT Pain management (chronic), PT reports her left knee has been hurting worse susy garcia - Delmer MORA, PT reports she may need her thyroid checked, has been expericni ng a lot of fatigue -Delmer MORA PLAN OF CARE VITAL SIGNS Height 66 in 2018-04-02 Weight 260.2 lbs 2018-04-02 Temperature 97.8 degrees Fahrenheit 2018-04-02 Heart Rate 87 bpm 2018-04-02 Respiratory Rate 18 2018-04-02 Oximetry 98 % 2018-04-02 BMI 41.99 kg/m2 2018-04-02 Blood pressure systolic 122 mmHg 2018-04-02 Blood pressure diastolic 78 mmHg 2018-04-02 MEDICATIONS Medication Instructions Dosage Frequency Start Date End Date Duration S tatus Omeprazole 40 mg Orally Once a day TAKE ONE CAPSULE BY MOUTH ONCE HECTOR Y 24h 90 Active Calcium 500 mg Orally 3 times a day 1 tablet 8h Active Fluticasone Propionate 50 MCG/ACT Nasally Once a day 1 spray in each nostril 24h 19 Feb, 2016 Active Meclizine HCl 25 MG Orally 4 times a day 1 tablet as needed 6h 26 J , 2016 Active Zolpidem Tartrate 10 mg Orally Once a day 1 tablet at bedtime 24h 28 days Active Hydrocodone-Acetaminophen 10-325 MG Orally 3 times a day 1 tablet a s needed 8h 03 Mar, 2018 28 days Active Levothyroxine Sodium 50 mcg Orally Once a day 1 tablet on an empty stomach in the morning 24h 90 Active Chlorzoxazone 500 mg 1 tablet 12h Ac tive Lisinopril 5 mg Orally Once a day 1 tablet 24h 90 Active SudoGest 60 mg Orally every 6 hrs 1 tablet as needed 6h 24 Sep, 8 5 days Not-Taking Cetirizine HCl 10 MG Orally Once a day 1 tablet 24h Active Multivital False Pass Acti ve Bicarb-Mg (CRRT) 10 by oral route 2 times a day 2 tablets 12h Not-Taking RESULTS No Results PROCEDURES Procedure Date Ordered Result Body Site 09 PANEL (PROFILE 1) Apr 02, 2018 X-RAY EXAM OF KNEE, 3 Apr 02, 2018 SINGLE IMMUNIZATION ADMIN Apr 02, 2018 B12, VITAMIN (UP TO 1000 MCG) Apr 02, 2018 FLULAVAL QUAD 0.5ML (6 MO AND UP) 2017Apr 02, 2018 THER/PROPH/DIAG INJ, SC/IM Apr 02, 2018 INSTRUCTIONS MEDICATIONS ADMINISTERED No Known Medications [...]
--- OUTSIDE RECORDS SUMMARY | 2020-01-25 08:02 | XMS REPORT ---
Author Author Velma CORDERO Organization [facility] Address [address] [place] [address] Care Team Providers Care E Commerce Developer Name Role Phone STEPHAN CORDERO Unavailable PROBLEMS Type Condition ICD9-CM Code [id number] Code Onset Dates Condition S tatus SNOMED Code Problem Hypercholesteremia E78.0 Active 1 5247157 Problem Arthritis M19.90 Active 6041156 Problem Hyperparathyroidism E21.3 Active 49807458 Problem Primary insomnia F51.01 Active 397 2004 Problem Myalgia M79.1 Active 06582760 Problem Chronic kidney disease, stage 4 (severe) N18.4 Active 435364397 Problem BPV (benign positional vertigo), bilateral H81.13 Active 945681691 Problem Corns L84 Active 619723009 Problem Mood disorder F39 Active 235495 05 Problem 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 Active 90716659 Problem 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 Active 66776920 ALLERGIES No Information ENCOUNTERS Encounter Location Date Diagnosis [place] [address] [facility] [id number] [address] [place] [phone] 05 Mar, 2018 [place] [address] [facility] [id number] [address] [place] [phone] Feb, Labyrinthitis of left ear H8 3.02 [facility] [address] [facility] [id number] [address] [place] [phone] Feb, Arthritis M19.90 [facility] [address] [facility] [id number] [address] [place] [phone] Jan, Labyrinthitis of left ear H8 3.02 [facility] [address] [facility] [id number] [address] [place] [address] Jan, Arthritis M19.90 [place] [address] [place] [id number] [address] [place] [address] Dec, Labyrinthitis of left ear H8 3.02 [facility] [address] [place] [id number] [place] [address] Nov, Arthritis M19.90 [facility] [address] [place] [id number] [place] [address] Nov, Labyrinthitis of left ear H8 3.02 [facility] [address] [address] Nov, BMI 40.0-44.9, adult Z68.41 ; Chronic kidney disease, stage 4 (severe) N18.4 and Acute right-sided thoracic back pain M54.6 [place] [address] [place] [id number] [place] [address] October, Labyrinthitis of left ear H8 3.02 and Arthritis M19.90 [place] [address] [address] Sep, BPV (benign positional verti go), bilateral H81.13 ; Dysfunction of left eustachian tube H69.82 and BMI 40.0-44.9, adult Z68.41 [place] [address] [place] [id number] [place] [address] Sep, Labyrinthitis of left ear H8 3.02 and Arthritis M19.90 [facility] [address] [place] [id number] [address] [place] [phone] Sep, [facility] [address] [address] Sep, [place] [address] [address] Sep, Chronic kidney disease, stag e 4 (severe) N18.4 [place] [address] [place] [id number] [place] [address] Sep, Chronic kidney disease, stag e 4 (severe) N18.4 [facility] [address] [place] [id number] [address] [place] [address] Aug, Labyrinthitis of left ear H8 3.02 and Arthritis M19.90 [facility] [address] [place] [id number] [address] [place] [address] Aug, [facility] [address] [place] [id number] [address] [place] [address] Jul, [facility] [address] [facility] [id number] [address] [place] [address] Jul, Arthritis M19.90 and Labyrin thitis of left ear H83.02 [place] [address] [place] [id number] [address] [place] [phone] Jul, [place] [address] [place] [address] Jun, [place] [address] [place] [id number] [address] [place] [address] Jun, Arthritis M19.90 and Labyrin thitis of left ear H83.02 [place] [address] [place] [id number] [address] [place] [address] Jun, Pre-op evaluation Z01.818 ; BMI 40.0-44.9, adult Z68.41 and Encounter for immunization Z23 [place] [address] [place] [id number] [address] [place] [address] May, Arthritis M19.90 and Labyrin thitis of left ear H83.02 [place] [address] [place] [id number] [address] [place] [address] Apr, Labyrinthitis of left ear H8 3.02 [facility] [address] [place] [id number] [address] [place] [address] Apr, Arthritis M19.90 and Labyrin thitis of left ear H83.02 [facility] [address] [id number] [address] [place] [address] 10 Mar, 2017 Arthritis M19.90 and Labyrin thitis of left ear H83.02 [facility] [address] [facility] [id number] [address] [place] [address] 05 Mar, 2017 Chronic kidney disease, stag e 4 (severe) N18.4 [facility] [address] [facility] [id number] [address] [place] [phone] 06 Feb, 2017 Arthritis M19.90 and Labyrin thitis of left ear H83.02 [place] [address] [id number] [address] [place] [id number] 10 Jan, 2017 Labyrinthitis of left ear H8 3.02 and 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 [place] [address] [facility] [id number] [address] [place] [address] Dec, Arthritis M19.90 [place] [address] [facility] [id number] [address] [place] [address] Dec, BPV (benign positional verti go), bilateral H81.13 [place] [address] [facility] [id number] [address] [place] [phone] Dec, [place] [address] [facility] [id number] [address] [place] [address] Dec, [place] [address] [facility] [id number] [address] [place] [address] Dec, [place] [address] [facility] [id number] [address] [place] [address] Nov, Arthritis M19.90 and Deficie ncy of other specified B group vitamins E53.8 [facility] [address] [id number] [address] [place] [phone] Nov, Arthritis M19.90 [facility] [address] [facility] [id number] [address] [place] [address] Nov, Hyperparathyroidism E21.3 [facility] [address] [facility] [id number] [address] [place] [phone] October, [facility] [address] [facility] [id number] [address] [place] [phone] October, Hyperparathyroidism E21.3 [facility] [address] [facility] [id number] [address] [place] [address] October, [facility] [address] [facility] [id number] [address] [place] [phone] October, Renal insufficiency N28.9 an d Hyperparathyroidism E21.3 [facility] [address] [facility] [id number] [address] [place] [address] October, [facility] [address] [facility] [id number] [address] [place] [address] October, Renal insufficiency N28.9 an d Hyperparathyroidism E21.3 [facility] [address] [facility] [id number] [address] [place] [address] October, Arthritis M19.90 [facility] [address] [facility] [id number] [address] [place] [address] Sep, [facility] [address] [place] [id number] [address] [place] [address] Sep, Lumbar neuritis M54.16 ; Tho racic abscess J86.9 and 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 [facility] [address] [facility] [id number] [address] [place] [address] Sep, [facility] [address] [facility] [id number] [address] [place] [address] Aug, Arthritis M19.90 [facility] [address] [facility] [id number] [address] [place] [address] Aug, Hyperparathyroidism E21.3 [facility] [address] [place] [id number] [address] [place] [phone] Aug, Hyperparathyroidism E21.3 [facility] [address] [facility] [id number] [address] [place] [address] Aug, Arthritis M19.90 [facility] [address] [facility] [id number] [address] [place] [address] Jul, Mass of throat R22.1 [facility] [address] [facility] [id number] [address] [place] [address] Jul, [facility] [address] [place] [id number] [address] [place] [address] Jul, Arthritis M19.90 [facility] [address] [place] [id number] [address] [place] [id number] Jun, Arthritis M19.90 [facility] [address] [place] [id number] [address] [place] [phone] Jun, [facility] [address] [place] [id number] [address] [place] [address] Jun, Renal insufficiency N28.9 an d 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 [facility] [address] [facility] [id number] [address] [place] [address] 05 Jun, 2016 Medicare welcome exam Z00.00 ; Encounter for immunization Z23 ; Arthritis M19.90 ; Medicare annual wellness visit, initial Z00.00 ; Medicare annual wellness visit, subsequent Z00.00 and 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 [facility] [address] [facility] [id number] [address] [place] [address] 29 May, 2016 Renal insufficiency N28.9 an d 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 [facility] [address] [facility] [id number] [address] [place] [address] May, Renal insufficiency N28.9 [facility] [address] [facility] [id number] [address] [place] [phone] May, Renal insufficiency N28.9 [facility] [address] [facility] [id number] [address] [place] [id number] 14 May, 2016 [facility] [address] [id number] [address] [place] [id number] 16 Apr, 2016 [facility] [address] [id number] [address] [place] [phone] 16 Apr, 2016 [facility] [address] [facility] [id number] [address] [place] [id number] 14 Apr, 2016 Mass of throat R22.1 [facility] [address] [id number] [address] [place] [phone] 10 Apr, 2016 [facility] [address] [id number] [address] [place] [phone] 10 Apr, 2016 Mass of throat R22.1 [facility] [address] [facility] [id number] [address] [place] [phone] 04 Apr, 2016 Mass of throat R22.1 [facility] [address] [id number] [address] [place] [phone] Mar, [facility] [address] [facility] [id number] [address] [place] [phone] Mar, [facility] [address] [facility] [id number] [address] [place] [address] Mar, [facility] [address] [facility] [id number] [address] [place] [phone] 24 Mar, 2016 Parathyroid abnormality E21. 5 and Encounter for immunization Z23 [facility] [address] [facility] [id number] [address] [place] [phone] 17 Mar, 2016 [facility] [address] [facility] [id number] [address] [place] [phone] Mar, [facility] [address] [facility] [id number] [address] [place] [address] 21 Feb, 2016 Renal insufficiency N28.9 an d Hyperparathyroidism E21.3 [facility] [address] [facility] [id number] [address] [place] [address] 19 Feb, 2016 [place] [address] [facility] [id number] [address] [place] [phone] 15 Feb, 2016 Renal insufficiency N28.9 an d Hyperparathyroidism E21.3 [place] [address] [facility] [id number] [address] [place] [address] 14 Feb, 2016 [place] [address] [place] [id number] [address] [place] [phone] Feb, [place] [address] [place] [id number] [address] [place] [phone] Feb, [place] [address] [facility] [id number] [address] [place] [phone] Jan, [place] [address] [place] [id number] [place] [address] Jan, Arthritis M19.90 ; Lumbago w ith sciatica, right side M54.41 and Other chronic pain G89.29 [place] [address] [place] [id number] [address] [place] [phone] Jan, [place] [address] [place] [id number] [place] [address] Dec, Arthritis M19.90 ; Lumbago w ith sciatica, right side M54.41 and Other chronic pain G89.29 [place] [id number] [place] [address] Nov, Deficiency of other specifie d B group vitamins E53.8 ; Primary insomnia F51.01 ; Mood disorder F39 and Lumbago with sciatica, right side M54.41 [place] [address] [facility] [id number] [address] [place] [address] Nov, Hyperparathyroidism E21.3 [place] [address] [place] [id number] [address] [place] [address] Nov, Unspecified kidney failure N 19 and Hyperparathyroidism E21.3 [place] [address] [place] [id number] [address] [place] [id number] October, Hyperparathyroidism E21.3 [facility] [address] [facility] [id number] [address] [place] [phone] October, [facility] [address] [address] October, Hyperparathyroidism E21.3 [facility] [address] [address] October, Hyperparathyroidism E21.3 [facility] [address] [address] Sep, Hyperparathyroidism E21.3 ; Hypercholesterolemia E78.0 and Arthritis M19.90 [facility] [address] [address] Aug, [facility] [address] [address] Aug, Deficiency of other specifie d B group vitamins E53.8 [facility] [address] [address] Aug, [facility] [address] [address] Jul, Urinary frequency R35.0 [facility] [address] [address] Jul, Urinary frequency R35.0 [facility] [address] [address] Jul, [facility] [address] [address] Jul, [facility] [address] [address] Jun, Pain in left knee M25.562 [facility] [address] [address] Jun, [facility] [address] [facility] [id number] [address] [place] [address] May, Swelling of left knee joint M25.462 [facility] [address] [facility] [id number] [address] [place] [address] May, [facility] [address] [facility] [id number] [address] [place] [address] May, [facility] [address] [facility] [id number] [address] [place] [phone] May, [facility] [address] [facility] [id number] [address] [place] [address] Apr, Renal insufficiency N28.9 an d Chronic kidney disease, stage 4 (severe) N18.4 [facility] [address] [facility] [id number] [address] [place] [address] Apr, Unspecified kidney failure N 19 [facility] [address] [facility] [id number] [address] [place] [address] Apr, Unspecified kidney failure N 19 [facility] [address] [facility] [id number] [address] [place] [address] Apr, [facility] [address] [facility] [id number] [address] [place] [address] Apr, Hyperparathyroidism, unspeci fied 252.00 [facility] [address] [facility] [id number] [address] [place] [address] Apr, [facility] [address] [facility] [id number] [address] [place] [address] Mar, [facility] [address] [facility] [id number] [address] [place] [address] Mar, [facility] [address] [facility] [id number] [address] [place] [id number] Mar, Hyperparathyroidism, unspeci fied 252.00 [facility] [address] [facility] [id number] [address] [place] [id number] Feb, [facility] [address] [id number] [address] [place] [address] Feb, Otalgia 388.70 [facility] [address] [id number] [address] [place] [address] Feb, [facility] [address] [facility] [id number] [address] [place] [address] Feb, [facility] [address] [id number] [address] [place] [address] Jan, [facility] [address] [id number] [address] [place] [address] Jan, Hyperparathyroidism, unspeci fied 252.00 [facility] [address] [id number] [address] [place] [address] Jan, [facility] [address] [facility] [id number] [address] [place] [address] Jan, Other B-complex deficiencies 266.2 and Hyperparathyroidism, unspecified 252.00 [facility] [address] [facility] [id number] [address] [place] [address] Jan, [facility] [address] [facility] [id number] [address] [place] [phone] Jan, [facility] [address] [facility] [id number] [address] [place] [phone] Jan, [facility] [address] [id number] [address] [place] [address] Dec, [facility] [address] [facility] [id number] [address] [place] [phone] Dec, [facility] [address] [facility] [id number] [address] [place] [address] Dec, [facility] [address] [facility] [id number] [address] [place] [address] Nov, Routine check-up V70.0 and P re-op exam V72.[address] [facility] [address] [id number] [address] [place] [address], [place] [address] Nov, [facility] [address] [id number] [address] [place] [address], [place] [address] Nov, [facility] [address] [id number] [address] [place] [address], [place] [address] October, [facility] [address] [id number] [address] [place] [address], [place] [address] October, Other B-complex deficiencies 266.2 [facility] [address] [id number] [address] [place] [address], [place] [address] October, [facility] [address] [id number] [address] [place] [phone] Sep, [facility] [address] [id number] [address] [place] [phone] Sep, [facility] [address] [id number] [address] [place] [phone] Aug, [facility] [address] [id number] [address] [place] [phone] Aug, [facility] [address] [id number] [address] [place] [phone] Aug, [facility] [address] [id number] [address] [place] [phone] Aug, [facility] [address] [id number] [address] [place] [phone] Aug, [facility] [address] [id number] [address] [place] [address], [place] [address] Aug, [facility] [address] [id number] [address] [place] [phone] 18 Jul, 2014 [facility] [address] [id number] [address] [place] [phone] Jul, [facility] [address] [id number] [address] [place] [address], [place] [address] Jul, 2014 [facility] [address] [id number] [address] [place] [address], [place] [address] Jul, 2014 [facility] [address] [id number] [address] [place] [address], [place] [address] Jul, 2014 [facility] [address] [id number] [address] [place] [address], [place] [address] Jul, 2014 [facility] [address] [id number] [address] [place] [address], [place] [address] Jul, 2014 [facility] [address] [id number] [address] [place] [address], [place] [address] Jul, 2014 [facility] [address] [id number] [address] [place] [address], [place] [address] Jul, 2014 [facility] [address] [id number] [address] [place] [address], [place] [address] Jul, 2014 [facility] [address] [id number] [address] [place] [address], [place] [address] Jul, 2014 [facility] [address] [id number] [address] [place] [address], [place] [address] Jul, 2014 [facility] [address] [id number] [address] [place] [id number] Jul, 2014 [facility] [address] [id number] [address] [place] [id number] Jul, 2014 [facility] [address] [id number] [address] [place] [address], [place] [address] Jun, [facility] [address] [id number] [address] [place] [phone] Jun, [facility] [address] [id number] [address] [place] [phone] Jun, [facility] [address] [id number] [address] [place] [phone] Jun, [facility] [address] [id number] [address] [place] [address], [place] [address] Jun, [facility] [address] [id number] [address] [place] [address], [place] [address] Jun, [facility] [address] [id number] [address] [place] [address], [place] [address] Jun, [facility] [address] [id number] [address] [place] [address], [place] [address] Jun, [facility] [address] [id number] [address] [place] [address], [place] [address] Jun, [facility] [address] [id number] [address] [place] [address], [place] [address] Jun, [facility] [address] [id number] [address] [place] [address], [place] [address] Jun, [facility] [address] [id number] [address] [place] [address], [place] [address] Jun, [facility] [address] [id number] [address] [place] [address], [place] [address] Jun, [facility] [address] [id number] [address] [place] [address], [place] [address] Jun, [facility] [address] [id number] [address] [place] [address], [place] [address] May, [facility] [address] [id number] [address] [place] [address], [place] [address] May, [facility] [address] [id number] [address] [place] [address], [place] [address] May, [facility] [address] [id number] [address] [place] [address], [place] [address] May, [facility] [address] [id number] [address] [place] [address], [place] [address] Apr, [facility] [address] [id number] [address] [place] [address], [place] [address] Apr, [facility] [address] [id number] [address] [place] [address], [place] [address] Apr, [facility] [address] [id number] [address] [place] [address], [place] [address] Apr, [facility] [address] [id number] [address] [place] [address], [place] [address] Apr, [facility] [address] [id number] [address] [place] [address], [place] [address] Apr, [facility] [address] [id number] [address] [place] [address], [place] [address] Mar, [facility] [address] [id number] [address] [place] [address], [place] [address] Mar, [facility] [address] [id number] [address] [place] [address], [place] [address] Mar, [facility] [address] [id number] [address] [place] [address], [place] [address] Mar, [facility] [address] [id number] [address] [place] [address], [place] [address] Mar, [facility] [address] [id number] [address] [place] [address], [place] [address] Mar, [facility] [address] [id number] [address] [place] [address], [place] [address] Mar, [facility] [address] [id number] [address] [place] [address], [place] [address] Mar, [facility] [address] [id number] [address] [place] [address], [place] [address] Mar, [facility] [address] [id number] [address] [place] [address], [place] [address] Mar, [facility] [address] [id number] [address] [place] [address], [place] [address] Mar, [facility] [address] [id number] [address] [place] [address], [place] [address] Mar, [facility] [address] [id number] [address] [place] [address], [place] [address] Mar, [facility] [address] [id number] [address] [place] [address], [place] [address] Feb, [facility] [address] [id number] [address] [place] [address], [place] [address] Feb, [facility] [address] [id number] [address] [place] [address], [place] [address] Feb, [facility] [address] [id number] [address] [place] [address], [place] [address] Feb, [facility] [address] [id number] [address] [place] [address], [place] [address] 19 Feb, 2014 [facility] [address] [id number] [address] [place] [address], [place] [address] 19 Feb, 2014 [facility] [address] [id number] [address] [place] [address], [place] [address] 13 Feb, 2014 [facility] [address] [id number] [address] [place] [address], [place] [address] 13 Feb, 2014 [facility] [address] [id number] [address] [place] [address], [place] [address] 12 Feb, 2014 [facility] [address] [id number] [address] [place] [address], [place] [address] 12 Feb, 2014 [facility] [address] [id number] [address] [place] [address], [place] [address] Jan, [facility] [address] [id number] [address] [place] [address], [place] [address] Jan, [facility] [address] [id number] [address] [place] [address], [place] [address] Dec, [facility] [address] [id number] [facility] [place] [address] Dec, [facility] [address] [id number] [address] [place] [address], [place] [address] Dec, [facility] [address] [id number] [facility] [place] [address] Dec, [facility] [address] [id number] [address] [place] [address], [place] [address] Dec, [facility] [address] [id number] [address] [place] [address], [place] [address] Dec, [facility] [address] [id number] [address] [place] [address], [place] [address] Nov, [facility] [address] [id number] [address] [place] [address], [place] [address] Nov, [facility] [address] [id number] [address] [place] [address], [place] [address] Nov, [facility] [address] [id number] [address] [place] [address], [place] [address] Nov, [facility] [address] [id number] [address] [place] [address], [place] [address] October, [facility] [address] [id number] [address] [place] [address], [place] [address] October, [facility] [address] [id number] [address] [place] [address], [place] [address] October, [facility] [address] [id number] [address] [place] [address], [place] [address] October, [facility] [address] [id number] [address] [place] [address], [place] [address] October, [facility] [address] [id number] [address] [place] [address], [place] [address] October, [facility] [address] [id number] [address] [place] [address], [place] [address] October, [facility] [address] [id number] [address] [place] [address], [place] [address] October, [facility] [address] [id number] [address] [place] [address], [place] [address] October, [facility] [address] [id number] [address] [place] [address], [place] [address] October, [facility] [address] [id number] [address] [place] [address], [place] [address] October, [facility] [address] [id number] [address] [place] [address], [place] [address] October, [facility] [address] [id number] [address] [place] [address], [place] [address] October, [facility] [address] [id number] [address] [place] [address], [place] [address] October, [facility] [address] [id number] [address] [place] [address], [place] [address] October, [facility] [address] [id number] [address] [place] [address], [place] [address] October, [facility] [address] [id number] [address] [place] [address], [place] [address] Sep, [facility] [address] [id number] [address] [place] [address], [place] [address] Sep, [facility] [address] [id number] [address] [place] [address], [place] [address] Sep, [facility] [address] [id number] [address] [place] [address], [place] [address] Sep, [facility] [address] [id number] [address] [place] [address], [place] [address] Sep, [facility] [address] [id number] [address] [place] [address], [place] [address] Sep, [facility] [address] [id number] [address] [place] [address], [place] [address] Aug, [facility] [address] [id number] [facility] [place] [address] Aug, [facility] [address] [id number] [address] [place] [address], [place] [address] Aug, [facility] [address] [id number] [address] [place] [address], [place] [address] Aug, [facility] [address] [id number] [address] [place] [address], [place] [address] Aug, [facility] [address] [id number] [address] [place] [address], [place] [address] Aug, [facility] [address] [id number] [address] [place] [address], [place] [address] Jul, [facility] [address] [id number] [address] [place] [address], [place] [address] Jul, [facility] [address] [id number] [address] [place] [address], [place] [address] Jul, [facility] [address] [id number] [address] [place] [address], [place] [address] Jul, [facility] [address] [id number] [address] [place] [address], [place] [address] Jun, [facility] [address] [id number] [address] [place] [address], [place] [address] Jun, [facility] [address] [id number] [address] [place] [address], [place] [address] May, [facility] [address] [id number] [address] [place] [address], [place] [address] May, [facility] [address] [id number] [address] [place] [address], [place] [address] May, [facility] [address] [id number] [address] [place] [address], [place] [address] May, [facility] [address] [id number] [address] [place] [address], [place] [address] 09 May, 2013 [facility] [address] [id number] [address] [place] [address], [place] [address] Apr, [facility] [address] [id number] [address] [place] [address], [place] [address] Apr, [facility] [address] [id number] [address] [place] [address], [place] [address] Apr, [facility] [address] [id number] [address] [place] [address], [place] [address] Apr, [facility] [address] [id number] [address] [place] [address], [place] [address] Apr, [facility] [address] [id number] [address] [place] [address], [place] [address] Apr, [facility] [address] [id number] [address] [place] [address], [place] [address] 15 Mar, 2013 [facility] [address] [id number] [address] [place] [address], [place] [address] 15 Mar, 2013 [facility] [address] [id number] [address] [place] [address], [place] [address] 14 Mar, 2013 [facility] [address] [id number] [address] [place] [address], [place] [address] 14 Mar, 2013 [facility] [address] [id number] [address] [place] [address], [place] [address] 11 Mar, 2013 [facility] [address] [id number] [address] [place] [address], [place] [address] 11 Mar, 2013 [facility] [address] [id number] [address] [place] [address], [place] [address] 23 Feb, 2013 [facility] [address] [id number] [address] [place] [address], [place] [address] 19 Feb, 2013 [facility] [address] [id number] [address] [place] [address] Feb, [facility] [address] [id number] [address] [place] [address], [place] [address] Jan, [facility] [address] [id number] [address] [place] [address], [place] [address] Jan, [facility] [address] [id number] [address] [place] [address], [place] [address] Jan, [facility] [address] [id number] [address] [place] [address], [place] [address] Jan, [facility] [address] [id number] [address] [place] [address], [place] [address] Jan, [facility] [address] [id number] [address] [place] [address], [place] [address] Jan, [facility] [address] [id number] [address] [place] [address], [place] [address] Dec, [facility] [address] [id number] [address] [place] [address], [place] [address] Dec, [facility] [address] [id number] [address] [place] [address], [place] [address] Dec, [facility] [address] [id number] [address] [place] [address], [place] [address] Dec, [facility] [address] [id number] [address] [place] [address], [place] [address] Dec, [facility] [address] [id number] [address] [place] [address], [place] [address] Dec, [facility] [address] [id number] [address] [place] [address], [place] [address] Nov, [facility] [address] [id number] [address] [place] [address], [place] [address] Nov, [facility] [address] [id number] [address] [place] [address], [place] [address] Nov, [facility] [address] [id number] [address] [place] [address], [place] [address] 13 Nov, 2012 [facility] [address] [id number] [address] [place] [address], [place] [address] Nov, [facility] [address] [id number] [address] [place] [address], [place] [address] Nov, [facility] [address] [id number] [address] [place] [address], [place] [address] October, [facility] [address] [id number] [address] [place] [address], [place] [address] October, [facility] [address] [id number] [address] [place] [address], [place] [address] October, [facility] [address] [id number] [address] [place] [address], [place] [address] October, [facility] [address] [id number] [address] [place] [address], [place] [address] October, [facility] [address] [id number] [address] [place] [address], [place] [address] Sep, [facility] [address] [id number] [address] [place] [address], [place] [address] Sep, [facility] [address] [id number] [address] [place] [address], [place] [address] Sep, [facility] [address] [id number] [address] [place] [address], [place] [address] 18 Sep, 2012 [facility] [address] [id number] [address] [place] [address], [place] [address] Sep, [facility] [address] [id number] [address] [place] [address], [place] [address] Aug, [facility] [address] [id number] [address] [place] [address], [place] [address] Aug, [facility] [address] [id number] [address] [place] [address], [place] [address] Aug, [facility] [address] [id number] [address] [place] [address], [place] [address] Jul, [facility] [address] [id number] [address] [place] [address], [place] [address] Jul, [facility] [address] [id number] [address] [place] [address], [place] [address] Jul, [facility] [address] [id number] [address] [place] [address], [place] [address] Jul, [facility] [address] [id number] [address] [place] [address], [place] [address] Jul, [facility] [address] [id number] [address] [place] [address], [place] [address] 05 Jul, 2012 [facility] [address] [id number] [address] [place] [address], [place] [address] Jun, [facility] [address] [id number] [address] [place] [address] Apr, [facility] [address] [id number] [address] [place] [address], [place] [address] Apr, [facility] [address] [id number] [address] [place] [address] Apr, [facility] [address] [id number] [address] [place] [address] Apr, [facility] [address] [id number] [address] [place] [address] Mar, [facility] [address] [id number] [address] [place] [address], [place] [address] Mar, [facility] [address] [id number] [address] [place] [address] Mar, [facility] [address] [id number] [address] [place] [address], [place] [address] Mar, [facility] [address] [id number] [address] [place] [address], [place] [address] Mar, [facility] [address] [id number] [address] [place] [address], [place] [address] Feb, [facility] [address] [id number] [address] [place] [address], [place] [address] Jan, [facility] [address] [id number] [address] [place] [address], [place] [address] Jan, [facility] [address] [id number] [address] [place] [address], [place] [address] Jan, [facility] [address] [id number] [address] [place] [address], [place] [address] Dec, [facility] [address] [id number] [address] [place] [address], [place] [address] Nov, [facility] [address] [id number] [address] [place] [address], [place] [address] Nov, [facility] [address] [id number] [address] [place] [address], [place] [address] Nov, [facility] [address] [id number] [address] [place] [address], [place] [address] Nov, [facility] [address] [id number] [address] [place] [address], [place] [address] Nov, [facility] [address] [id number] [address] [place] [address], [place] [address] October, [facility] [address] [id number] [address] [place] [id number] October, [facility] [address] [id number] [address] [place] [address] October, [facility] [address] [id number] [address] [place] [address] October, [facility] [address] [id number] [address] [place] [id number] October, IMMUNIZATIONS No Known Immunizations SOCIAL HISTORY Never Assessed REASON FOR VISIT Controlled Med Refill PLAN OF CARE VITAL SIGNS MEDICATIONS Medication Instructions Dosage Frequency Start Date End Date Duration S ashly Hydrocodone-Acetaminophen 10-325 MG Orally 3 times a day 1 tablet a s needed 8h Feb, 28 days Active RESULTS No Results PROCEDURES [...]
--- OUTSIDE RECORDS SUMMARY | 2020-01-25 08:02 | XMS REPORT ---
Author Author Velma CORDERO Organization [facility] [place] Address [address] [place] [address] Care Team Providers Care Watch Caser Name Role Phone STEPHAN CORDERO Unavailable PROBLEMS Type Condition ICD9-CM Code [id number] Code Onset Dates Condition S tatus SNOMED Code Problem Hypercholesteremia E78.0 Active 1 7862136 Problem Arthritis M19.90 Active 3943746 Problem Hyperparathyroidism E21.3 Active 46718574 Problem Primary insomnia F51.01 Active 397 2004 Problem Myalgia M79.1 Active 81370785 Problem Chronic kidney disease, stage 4 (severe) N18.4 Active 573016955 Problem BPV (benign positional vertigo), bilateral H81.13 Active 377389155 Problem Corns L84 Active 298747936 Problem Mood disorder F39 Active 442018 05 Problem 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 [id number] [address] [place] [phone] Feb, Labyrinthitis of left ear H8 3.02 [facility] [place] [address] [facility] [id number] [address] [place] [phone] Feb, Arthritis M19.90 [facility] [place] [address] [facility] [id number] [address] [place] [phone] Jan, Labyrinthitis of left ear H8 3.02 [facility] [place] [address] [facility] [id number] [address] [place] [phone] Jan, Arthritis M19.90 [facility] [place] [address] [facility] [id number] [address] [place] [phone] Dec, Labyrinthitis of left ear H8 3.02 [facility] [place] [address] [facility] [id number] [address] [place] [phone] Nov, Arthritis M19.90 [facility] [place] [address] [facility] [id number] [address] [place] [phone] Nov, Labyrinthitis of left ear H8 3.02 [facility] [place] [address] [facility] [id number] [address] [place] [phone] Nov, BMI 40.0-44.9, adult Z68.41 ; Chronic kidney disease, stage 4 (severe) N18.4 and Acute right-sided thoracic back pain M54.6 [place] [address] [address] [facility] [id number] [address] [place] [phone] October, Labyrinthitis of left ear H8 3.02 and Arthritis M19.90 [place] [address] [address] [place] [id number] [address] [place] [phone] Sep, BPV (benign positional verti go), bilateral H81.13 ; Dysfunction of left eustachian tube H69.82 and BMI 40.0-44.9, adult Z68.41 [place] [address] [address] [facility] [id number] [address] [place] [phone] Sep, Labyrinthitis of left ear H8 3.02 and Arthritis M19.90 [place] [address] [place] [id number] [address] [place] [phone] Sep, [place] [address] [address] [facility] [id number] [address] [place] [phone] Sep, [place] [address] [address] [facility] [id number] [address] [place] [phone] Sep, Chronic kidney disease, stag e 4 (severe) N18.4 [place] [address] [facility] [id number] [address] [place] [phone] Sep, Chronic kidney disease, stag e 4 (severe) N18.4 [place] [address] [id number] [address] [place] [phone] Aug, Labyrinthitis of left ear H8 3.02 and Arthritis M19.90 [facility] [place] [address] [facility] [id number] [address] [place] [phone] Aug, [facility] [place] [address] [id number] [address] [place] [phone] Jul, [facility] [place] [address] [facility] [id number] [address] [place] [phone] Jul, Arthritis M19.90 and Labyrin thitis of left ear H83.02 [facility] [place] [address] [facility] [id number] [address] [place] [phone] Jul, [facility] [place] [address] [facility] [id number] [address] [place] [phone] Jun, [facility] [place] [address] [facility] [id number] [address] [place] [phone] Jun, Arthritis M19.90 and Labyrin thitis of left ear H83.02 [facility] [place] [address] [facility] [id number] [address] [place] [phone] Jun, Pre-op evaluation Z01.818 ; BMI 40.0-44.9, adult Z68.41 and Encounter for immunization Z23 [facility] [place] [address] [facility] [id number] [address] [place] [phone] May, Arthritis M19.90 and Labyrin thitis of left ear H83.02 [facility] [place] [address] [facility] [id number] [address] [place] [phone] Apr, Labyrinthitis of left ear H8 3.02 [facility] [place] [address] [facility] [id number] [address] [place] [phone] Apr, Arthritis M19.90 and Labyrin thitis of left ear H83.02 [facility] [place] [address] [facility] [id number] [address] [place] [phone] Mar, Arthritis M19.90 and Labyrin thitis of left ear H83.02 [facility] [place] [address] [id number] [address] [place] [phone] 05 Mar, 2017 Chronic kidney disease, stag e 4 (severe) N18.4 [facility] [place] [address] [id number] [address] [place] [phone] 06 Feb, 2017 Arthritis M19.90 and Labyrin thitis of left ear H83.02 [facility] [place] [address] [id number] [address] [place] [phone] Jan, Labyrinthitis of left ear H8 3.02 and 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 [facility] [place] [address] [id number] [address] [place] [phone] Dec, Arthritis M19.90 [facility] [place] [address] [id number] [address] [place] [phone] Dec, BPV (benign positional verti go), bilateral H81.13 [facility] [place] [address] [id number] [address] [place] [phone] Dec, [facility] [place] [address] [facility] [id number] [address] [place] [phone] Dec, [facility] [place] [address] [facility] [id number] [address] [place] [phone] Dec, [facility] [place] [address] [facility] [id number] [address] [place] [phone] Nov, Arthritis M19.90 and Deficie ncy of other specified B group vitamins E53.8 [facility] [place] [address] [id number] [address] [place] [phone] Nov, Arthritis M19.90 [facility] [place] [address] [id number] [address] [place] [phone] Nov, Hyperparathyroidism E21.3 [facility] [place] [address] [facility] [id number] [address] [place] [phone] October, [facility] [place] [address] [facility] [id number] [address] [place] [phone] October, Hyperparathyroidism E21.3 [facility] [place] [address] [facility] [id number] [address] [place] [phone] October, [facility] [place] [address] [facility] [id number] [address] [place] [phone] October, Renal insufficiency N28.9 an d Hyperparathyroidism E21.3 [facility] [place] [address] [facility] [id number] [address] [place] [phone] October, [facility] [place] [address] [facility] [id number] [address] [place] [phone] October, Renal insufficiency N28.9 an d Hyperparathyroidism E21.3 [facility] [place] [address] [facility] [id number] [address] [place] [phone] October, Arthritis M19.90 [facility] [place] [address] [facility] [id number] [address] [place] [phone] Sep, [facility] [place] [address] 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 [id number] [address] [place] [phone] Sep, [facility] [place] [address] [facility] [id number] [address] [place] [phone] Aug, Arthritis M19.90 [facility] [place] [address] [facility] [id number] [address] [place] [phone] Aug, Hyperparathyroidism E21.3 [facility] [place] [address] [facility] [id number] [address] [place] [phone] Aug, Hyperparathyroidism E21.3 [facility] [place] [address] [place] [id number] [address] [place] [phone] Aug, Arthritis M19.90 [facility] [place] [address] [facility] [id number] [address] [place] [phone] Jul, Mass of throat R22.1 [facility] [place] [address] [facility] [id number] [address] [place] [phone] Jul, [facility] [place] [address] [facility] [id number] [address] [place] [phone] Jul, Arthritis M19.90 [facility] [place] [address] [facility] [id number] [address] [place] [phone] Jun, Arthritis M19.90 [facility] [place] [address] [place] [id number] [address] [place] [phone] Jun, [facility] [place] [address] [facility] [id number] [address] [place] [phone] Jun, Renal insufficiency N28.9 an d Parathyroid abnormality E21.5 [facility] [place] [address] 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 [id number] [address] [place] [phone] May, Renal insufficiency N28.9 [facility] [place] [address] [place] [id number] [address] [place] [phone] May, Renal insufficiency N28.9 [facility] [place] [address] [facility] [id number] [address] [place] [phone] May, [facility] [place] [address] [place] [id number] [address] [place] [phone] 16 Apr, 2016 [facility] [place] [address] [id number] [address] [place] [phone] 16 Apr, 2016 [facility] [address] [id number] [address] [place] [phone] 14 Apr, 2016 Mass of throat R22.1 [facility] [address] [id number] [address] [place] [phone] 10 Apr, 2016 [facility] [address] [id number] [address] [place] [phone] 10 Apr, 2016 Mass of throat R22.1 [facility] [address] [id number] [address] [place] [phone] 04 Apr, 2016 Mass of throat R22.1 [facility] [place] [address] [facility] [id number] [address] [place] [phone] Mar, [facility] [place] [address] [facility] [id number] [address] [place] [phone] Mar, [facility] [place] [address] [facility] [id number] [address] [place] [phone] Mar, [facility] [place] [address] [facility] [id number] [address] [place] [phone] 24 Mar, 2016 Parathyroid abnormality E21. 5 and Encounter for immunization Z23 [facility] [place] [address] [facility] [id number] [address] [place] [phone] 17 Mar, 2016 [facility] [place] [address] [facility] [id number] [address] [place] [phone] Mar, [facility] [place] [address] [facility] [id number] [address] [place] [phone] 21 Feb, 2016 Renal insufficiency N28.9 an d Hyperparathyroidism E21.3 [facility] [place] [address] [facility] [id number] [address] [place] [phone] 19 Feb, 2016 [facility] [place] [address] [facility] [id number] [address] [place] [phone] 15 Feb, 2016 Renal insufficiency N28.9 an d Hyperparathyroidism E21.3 [place] [address] [address] [facility] [id number] [address] [place] [phone] 14 Feb, 2016 [place] [address] [address] [facility] [id number] [address] [place] [phone] Feb, [place] [address] [address] [place] [id number] [address] [place] [phone] Feb, [place] [address] [address] [place] [id number] [address] [place] [id number] Jan, [place] [address] [address] [place] [id number] [place] [phone] Jan, Arthritis M19.90 ; Lumbago w ith sciatica, right side M54.41 and Other chronic pain G89.29 [place] [address] [phone] Jan, [place] [address] [phone] Dec, Arthritis M19.90 ; Lumbago w ith sciatica, right side M54.41 and Other chronic pain G89.29 [place] [address] [phone] Nov, Deficiency of other specifie d B group vitamins E53.8 ; Primary insomnia F51.01 ; Mood disorder F39 and Lumbago with sciatica, right side M54.41 [place] [address] [address] [place] [id number] [address] [place] [phone] Nov, Hyperparathyroidism E21.3 [place] [address] [address] [place] [id number] [place] [phone] Nov, Unspecified kidney failure N 19 and Hyperparathyroidism E21.3 [place] [address] [address] [place] [id number] [address] [place] [phone] October, Hyperparathyroidism E21.3 [place] [address] [address] [place] [id number] [address] [place] [phone] October, [facility] [place] [address] [place] [id number] [address] [place] [phone] October, Hyperparathyroidism E21.3 [facility] [place] [address] [place] [id number] [address] [place] [phone] October, Hyperparathyroidism E21.3 [facility] [place] [address] [place] [id number] [place] [id number] Sep, Hyperparathyroidism E21.3 ; Hypercholesterolemia E78.0 and Arthritis M19.90 [facility] [place] [address] [place] [id number] [address] [place] [phone] Aug, [facility] [place] [address] [phone] Aug, Deficiency of other specifie d B group vitamins E53.8 [facility] [place] [address] [phone] Aug, [facility] [place] [address] [phone] Jul, Urinary frequency R35.0 [facility] [place] [address] [place] [id number] [place] [phone] Jul, Urinary frequency R35.0 [facility] [place] [address] [place] [id number] [address] [place] [phone] Jul, [facility] [place] [address] [id number] [address] [place] [phone] Jul, [facility] [place] [address] [id number] [address] [place] [phone] Jun, Pain in left knee M25.562 [facility] [place] [address] [id number] [address] [place] [id number] Jun, [facility] [place] [id number] [address] [place] [id number] May, Swelling of left knee joint M25.462 [facility] [place] [address] [id number] [address] [place] [phone] May, [facility] [place] [address] [facility] [id number] [address] [place] [phone] May, [facility] [place] [address] [facility] [id number] [address] [place] [phone] May, [facility] [place] [address] [facility] [id number] [address] [place] [phone] Apr, Renal insufficiency N28.9 an d Chronic kidney disease, stage 4 (severe) N18.4 [facility] [place] [address] [facility] [id number] [address] [place] [phone] Apr, Unspecified kidney failure N 19 [facility] [place], [facility] [address] [facility] [id number] [address] [place] [phone] Apr, Unspecified kidney failure N 19 [facility] [place], [facility] [address] [facility] [id number] [address] [place] [id number] Apr, [facility] [place] [address] [facility] [id number] [address] [place] [phone] Apr, Hyperparathyroidism, unspeci fied 252.00 [facility] [place], [facility] [address] [facility] [id number] [address] [place] [address] Apr, [facility] [place] [address] [facility] [id number] [address] [place] [address] Mar, [facility] [place] [address] [facility] [id number] [address] [place] [address] Mar, [facility] [place] [address] [facility] [id number] [address] [place] [address] Mar, Hyperparathyroidism, unspeci fied 252.00 [facility] [place] [address] [facility] [id number] [address] [place] [address] Feb, [facility] [place] [address] [facility] [id number] [address] [place] [address] Feb, Otalgia 388.70 [facility] [place] [address] [facility] [id number] [address] [place] [address] Feb, [facility] [place] [address] [facility] [id number] [address] [place] [address] Feb, [facility] [place] [address] [facility] [id number] [address] [place] [address] Jan, [facility] [place] [address] [facility] [id number] [address] [place] [address] Jan, Hyperparathyroidism, unspeci fied 252.00 [facility] [place] [address] [facility] [id number] [address] [place] [address] Jan, [facility] [place] [address] [facility] [id number] [address] [place] [address] Jan, Other B-complex deficiencies 266.2 and Hyperparathyroidism, unspecified 252.00 [facility] [place] [address] [facility] [id number] [address] [place] [address] Jan, [facility] [place] [address] [facility] [id number] [address] [place] [address] Jan, [facility] [place] [address] [facility] [id number] [address] [place] [address] Jan, [facility] [place] [address] [facility] [id number] [address] [place] [id number] Dec, [facility] [place] [address] [facility] [id number] [address] [place] [address] Dec, [facility] [place] [address] [facility] [id number] [address] [place] [phone] Dec, [facility] [place] [address] [facility] [id number] [address] [place] [id number] Nov, Routine check-up V70.0 and P re-op exam V72.84 [facility] [place] [address] [facility] [id number] [address] [place] [id number] Nov, [facility] [address] [id number] [address] [place] [address], [place] [address] Nov, [facility] [address] [id number] [address] [place] [address], [place] [address] October, [facility] [address] [id number] [address] [place] [address], [place] [address] October, Other B-complex deficiencies 266.2 [facility] [address] [id number] [address] [place] [address], [place] [address] October, [facility] [address] [id number] [address] [place] [address], [place] [address] Sep, [facility] [address] [id number] [address] [place] [address], [place] [address] Sep, [facility] [address] [id number] [address] [place] [address], [place] [address] Aug, [facility] [address] [id number] [address] [place] [address], [place] [address] Aug, [facility] [address] [id number] [address] [place] [address], [place] [address] Aug, [facility] [address] [id number] [address] [place] [address], [place] [address] Aug, [facility] [address] [id number] [address] [place] [address], [place] [address] Aug, [facility] [address] [id number] [address] [place] [address], [place] [address] Aug, [facility] [address] [id number] [address] [place] [address], [place] [address] 18 Jul, 2014 [facility] [address] [id number] [address] [place] [address], [place] [address] 18 Jul, 2014 [facility] [address] [id number] [address] [place] [address], [place] [address] 17 Jul, 2014 [facility] [address] [id number] [address] [place] [address], [place] [address] 17 Jul, 2014 [facility] [address] [id number] [address] [place] [address], [place] [address] Jul, 2014 [facility] [address] [id number] [address] [place] [address], [place] [address] Jul, 2014 [facility] [address] [id number] [address] [place] [address], [place] [address] Jul, 2014 [facility] [address] [id number] [address] [place] [address], [place] [address] Jul, 2014 [facility] [address] [id number] [address] [place] [address], [place] [address] Jul, 2014 [facility] [address] [id number] [address] [place] [address], [place] [address] Jul, 2014 [facility] [address] [id number] [address] [place] [address], [place] [address] Jul, 2014 [facility] [address] [id number] [address] [place] [address], [place] [address] Jul, 2014 [facility] [address] [id number] [address] [place] [address], [place] [address] Jul, [facility] [address] [id number] [address] [place] [address] Jul, [facility] [address] [id number] [address] [place] [address] Jun, [facility] [address] [id number] [address] [place] [address], [place] [address] Jun, [facility] [address] [id number] [address] [place] [address] Jun, [facility] [address] [id number] [address] [place] [address] Jun, [facility] [address] [id number] [address] [place] [address] Jun, [facility] [address] [id number] [address] [place] [address], [place] [address] Jun, [facility] [address] [id number] [address] [place] [address], [place] [address] Jun, [facility] [address] [id number] [address] [place] [address], [place] [address] Jun, [facility] [address] [id number] [address] [place] [address], [place] [address] Jun, [facility] [address] [id number] [address] [place] [address], [place] [address] Jun, [facility] [address] [id number] [address] [place] [address], [place] [address] Jun, [facility] [address] [id number] [address] [place] [address], [place] [address] Jun, [facility] [address] [id number] [address] [place] [address], [place] [address] Jun, [facility] [address] [id number] [address] [place] [address], [place] [address] Jun, [facility] [address] [id number] [address] [place] [address], [place] [address] May, [facility] [address] [id number] [address] [place] [address], [place] [address] May, [facility] [address] [id number] [address] [place] [address], [place] [address] May, [facility] [address] [id number] [address] [place] [address], [place] [address] May, [facility] [address] [id number] [address] [place] [address], [place] [address] Apr, [facility] [address] [id number] [address] [place] [address], [place] [address] Apr, [facility] [address] [id number] [address] [place] [address], [place] [address] Apr, [facility] [address] [id number] [address] [place] [address], [place] [address] Apr, [facility] [address] [id number] [address] [place] [address], [place] [address] Apr, [facility] [address] [id number] [address] [place] [address], [place] [address] Apr, [facility] [address] [id number] [address] [place] [address], [place] [address] Mar, [facility] [address] [id number] [address] [place] [address], [place] [address] Mar, [facility] [address] [id number] [address] [place] [address], [place] [address] Mar, [facility] [address] [id number] [address] [place] [address], [place] [address] Mar, [facility] [address] [id number] [address] [place] [address], [place] [address] Mar, [facility] [address] [id number] [address] [place] [address], [place] [address] Mar, [facility] [address] [id number] [address] [place] [address], [place] [address] Mar, [facility] [address] [id number] [address] [place] [address], [place] [address] Mar, [facility] [address] [id number] [address] [place] [address], [place] [address] Mar, [facility] [address] [id number] [address] [place] [address], [place] [address] Mar, [facility] [address] [id number] [address] [place] [address], [place] [address] Mar, [facility] [address] [id number] [address] [place] [address] [address] Mar, [facility] [address] [id number] [address] [place] [address], [place] [address] Mar, [facility] [address] [id number] [address] [place] [address], [place] [address] Feb, [facility] [address] [id number] [address] [place] [address], [place] [address] Feb, [facility] [address] [id number] [address] [place] [address], [place] [address] Feb, [facility] [address] [id number] [address] [place] [address], [place] [address] Feb, [facility] [address] [id number] [address] [place] [address], [place] [address] Feb, [facility] [address] [id number] [address] [place] [address], [place] [address] Feb, [facility] [address] [id number] [address] [place] [address], [place] [address] Feb, [facility] [address] [id number] [address] [place] [address], [place] [address] Feb, [facility] [address] [id number] [address] [place] [address], [place] [address] Feb, [facility] [address] [id number] [address] [place] [address], [place] [address] Feb, [facility] [address] [id number] [address] [place] [address], [place] [address] Jan, [facility] [address] [id number] [address] [place] [address], [place] [address] Jan, [facility] [address] [id number] [address] [place] [address], [place] [address] Dec, [facility] [address] [id number] [address] [place] [address], [place] [address] Dec, [facility] [address] [id number] [facility] [place] [address] Dec, [facility] [address] [id number] [address] [place] [address], [place] [address] Dec, [facility] [address] [id number] [address] [place] [address], [place] [address] Dec, [facility] [address] [id number] [address] [place] [address], [place] [address] Dec, [facility] [address] [id number] [address] [place] [address], [place] [address] Nov, [facility] [address] [id number] [address] [place] [address], [place] [address] Nov, [facility] [address] [id number] [address] [place] [address], [place] [address] Nov, [facility] [address] [id number] [address] [place] [address], [place] [address] Nov, [facility] [address] [id number] [address] [place] [address], [place] [address] October, [facility] [address] [id number] [address] [place] [address], [place] [address] October, [facility] [address] [id number] [address] [place] [address], [place] [address] October, [facility] [address] [id number] [address] [place] [address], [place] [address] October, [facility] [address] [id number] [address] [place] [address], [place] [address] October, [facility] [address] [id number] [address] [place] [address], [place] [address] October, [facility] [address] [id number] [address] [place] [address], [place] [address] October, [facility] [address] [id number] [address] [place] [address], [place] [address] October, [facility] [address] [id number] [address] [place] [address], [place] [address] October, [facility] [address] [id number] [address] [place] [address], [place] [address] October, [facility] [address] [id number] [address] [place] [address], [place] [address] October, [facility] [address] [id number] [address] [place] [address], [place] [address] October, [facility] [address] [id number] [address] [place] [address], [place] [address] October, [facility] [address] [id number] [address] [place] [address], [place] [address] October, [facility] [address] [id number] [address] [place] [address], [place] [address] October, [facility] [address] [id number] [address] [place] [address], [place] [address] October, [facility] [address] [id number] [address] [place] [address], [place] [address] Sep, [facility] [address] [id number] [address] [place] [address], [place] [address] Sep, [facility] [address] [id number] [address] [place] [address], [place] [address] Sep, [facility] [address] [id number] [address] [place] [address], [place] [address] Sep, [facility] [address] [id number] [address] [place] [address], [place] [address] Sep, [facility] [address] [id number] [address] [place] [address], [place] [address] Sep, [facility] [address] [id number] [address] [place] [address], [place] [address] Aug, [facility] [address] [id number] [address] [place] [address], [place] [address] Aug, [facility] [address] [id number] [address] [place] [address], [place] [address] Aug, [facility] [address] [id number] [address] [place] [address], [place] [address] Aug, [facility] [address] [id number] [address] [place] [address], [place] [address] Aug, [facility] [address] [id number] [address] [place] [address], [place] [address] Aug, [facility] [address] [id number] [address] [place] [address], [place] [address] Jul, [facility] [address] [id number] [address] [place] [address], [place] [address] Jul, [facility] [address] [id number] [address] [place] [address], [place] [address] Jul, [facility] [address] [id number] [address] [place] [address], [place] [address] Jul, [facility] [address] [id number] [address] [place] [address], [place] [address] Jun, [facility] [address] [id number] [address] [place] [address], [place] [address] Jun, [facility] [address] [id number] [address] [place] [address], [place] [address] May, [facility] [address] [id number] [address] [place] [address], [place] [address] May, [facility] [address] [id number] [address] [place] [address], [place] [address] May, [facility] [address] [id number] [address] [place] [address], [place] [address] May, [facility] [address] [id number] [address] [place] [address], [place] [address] May, [facility] [address] [id number] [address] [place] [address], [place] [address] 13 Apr, 2013 [facility] [address] [id number] [address] [place] [address], [place] [address] 13 Apr, 2013 [facility] [address] [id number] [address] [place] [address], [place] [address] Apr, [facility] [address] [id number] [address] [place] [address], [place] [address] Apr, [facility] [address] [id number] [address] [place] [address], [place] [address] 04 Apr, 2013 [facility] [address] [id number] [address] [place] [address], [place] [address] 04 Apr, 2013 [facility] [address] [id number] [address] [place] [address], [place] [address] 15 Mar, 2013 [facility] [address] [id number] [address] [place] [address], [place] [address] 15 Mar, 2013 [facility] [address] [id number] [address] [place] [address], [place] [address] 14 Mar, 2013 [facility] [address] [id number] [address] [place] [address], [place] [address] 14 Mar, 2013 [facility] [address] [id number] [address] [place] [address], [place] [address] 11 Mar, 2013 [facility] [address] [id number] [address] [place] [address], [place] [address] 11 Mar, 2013 [facility] [address] [id number] [address] [place] [address], [place] [address] 23 Feb, 2013 [facility] [address] [id number] [address] [place] [address], [place] [address] 19 Feb, 2013 [facility] [address] [id number] [address] [place] [address], [place] [address] 04 Feb, 2013 [facility] [address] [id number] [address] [place] [address], [place] [address] Jan, [facility] [address] [id number] [address] [place] [address], [place] [address] Jan, [facility] [address] [id number] [address] [place] [address], [place] [address] Jan, [facility] [address] [id number] [address] [place] [address], [place] [address] Jan, [facility] [address] [id number] [address] [place] [address], [place] [address] Jan, [facility] [address] [id number] [address] [place] [address], [place] [address] Jan, [facility] [address] [id number] [address] [place] [address], [place] [address] Dec, [facility] [address] [id number] [address] [place] [address], [place] [address] Dec, [facility] [address] [id number] [address] [place] [address], [place] [address] Dec, [facility] [address] [id number] [address] [place] [address], [place] [address] Dec, [facility] [address] [id number] [address] [place] [address], [place] [address] Dec, [facility] [address] [id number] [address] [place] [address], [place] [address] Dec, [facility] [address] [id number] [address] [place] [address], [place] [address] Nov, [facility] [address] [id number] [address] [place] [address], [place] [address] Nov, [facility] [address] [id number] [address] [place] [address], [place] [address] Nov, [facility] [address] [id number] [address] [place] [address], [place] [address] Nov, [facility] [address] [id number] [address] [place] [address], [place] [address] Nov, [facility] [address] [id number] [address] [place] [address], [place] [address] Nov, [facility] [address] [id number] [address] [place] [address], [place] [address] October, [facility] [address] [id number] [address] [place] [address], [place] [address] October, [facility] [address] [id number] [address] [place] [address], [place] [address] October, [facility] [address] [id number] [address] [place] [address], [place] [address] October, [facility] [address] [id number] [address] [place] [address], [place] [address] October, [facility] [address] [id number] [address] [place] [address], [place] [address] Sep, [facility] [address] [id number] [address] [place] [address], [place] [address] Sep, [facility] [address] [id number] [address] [place] [address], [place] [address] Sep, [facility] [address] [id number] [address] [place] [address], [place] [address] Sep, [facility] [address] [id number] [address] [place] [address], [place] [address] Sep, [facility] [address] [id number] [address] [place] [address], [place] [address] Aug, [facility] [address] [id number] [address] [place] [address], [place] [address] Aug, [facility] [address] [id number] [address] [place] [address], [place] [address] Aug, [facility] [address] [id number] [address] [place] [address], [place] [address] Jul, [facility] [address] [id number] [address] [place] [address], [place] [address] Jul, [facility] [address] [id number] [address] [place] [address], [place] [address] Jul, [facility] [address] [address] [id number] [address] [place] [address], [place] [phone] Jul, [facility] [address] [id number] [address] [place] [address], [place] [phone] Jul, [facility] [address] [id number] [address] [place] [address], [place] [id number] Jul, [facility] [address] [id number] [address] [place] [address], [place] [address] Jun, [facility] [address] [id number] [address] [place] [address], [place] [phone] Apr, [facility] [address] [id number] [address] [place] [phone] Apr, [facility] [address] [id number] [address] [place] [address], [place] [address] Apr, [facility] [address] [id number] [address] [place] [phone] Apr, [facility] [address] [id number] [address] [place] [address], [place] [phone] Mar, [facility] [address] [id number] [address] [place] [id number] Mar, [facility] [address] [id number] [address] [place] [address], [place] [id number] Mar, [facility] [address] [id number] [address] [place] [phone] Mar, [facility] [address] [id number] [address] [place] [address], [place] [id number] Mar, [facility] [address] [id number] [address] [place] [phone] Feb, [facility] [place] [address] [id number] [address] [place] [phone] Jan, [facility] [place] [address] [id number] [address] [place] [phone] Jan, [facility] [place] [address] [id number] [address] [place] [id number] Jan, [facility] [place] [address] [id number] [address] [place] [id number] Dec, [facility] [place] [address] [id number] [address] [place] [phone] Nov, [facility] [place] [address] [id number] [address] [place] [phone] Nov, [facility] [place] [address] [id number] [address] [place] [phone] Nov, [facility] [place] [address] [id number] [address] [place] [phone] Nov, [facility] [place] [address] [id number] [address] [place] [id number] Nov, [facility] [place] [address] [id number] [address] [place] [id number] October, [facility] [place] [address] [id number] [address] [place] [phone] October, [facility] [place] [address] [id number] [address] [place] [phone] October, [facility] [place] [address] [id number] [address] [place] [phone] October, [facility] [place] [address] [id number] [address] [place] [phone] October, IMMUNIZATIONS No Known Immunizations SOCIAL HISTORY Never Assessed REASON FOR VISIT Controlled Med Refill 02/10/18 PLAN OF CARE VITAL SIGNS MEDICATIONS Medication Instructions Dosage Frequency Start Date End Date Duration S ashly Zolpidem Tartrate 10 mg Orally Once a [...]
--- OUTSIDE RECORDS SUMMARY | 2020-01-25 08:02 | XMS REPORT ---
Author Author Velma CORDERO Organization [facility] Address [address] [place] [address] Care Team Providers Care Seam Press Operator Name Role Phone STEPHAN CORDERO Unavailable PROBLEMS Type Condition ICD9-CM Code [id number] Code Onset Dates Condition S tatus SNOMED Code Problem Hypercholesteremia E78.0 Active 1 2127594 Problem Arthritis M19.90 Active 0743655 Problem Hyperparathyroidism E21.3 Active 17267990 Problem Primary insomnia F51.01 Active 397 2004 Problem Myalgia M79.1 Active 54317998 Problem Chronic kidney disease, stage 4 (severe) N18.4 Active 242658335 Problem BPV (benign positional vertigo), bilateral H81.13 Active 781440075 Problem Corns L84 Active 639881781 Problem Mood disorder F39 Active 627985 05 Problem 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 Active 56818563 Problem 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 Active 20570837 ALLERGIES No Information ENCOUNTERS Encounter Location Date Diagnosis [place] [address] [facility] [id number] [address] [place] [phone] Apr, [place] [address] [place] [id number] [address] [place] [address] Mar, Labyrinthitis of left ear H8 3.02 [facility] [address] [facility] [id number] [address] [place] [address] Mar, Chronic kidney disease, stag e 4 (severe) N18.4 ; Knee pain, left anterior M25.562 ; 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 and Encounter for immunization Z23 [place] [address] [facility] [id number] [address] [place] [address] Mar, Arthritis M19.90 [place] [address] [place] [id number] [address] [place] [address] Feb, Labyrinthitis of left ear H8 3.02 [facility] [address] [facility] [id number] [address] [place] [address] Feb, Arthritis M19.90 [facility] [address] [facility] [id number] [address] [place] [address] Jan, Labyrinthitis of left ear H8 3.02 [facility] [address] [facility] [id number] [address] [place] [address] Jan, Arthritis M19.90 [place] [address] [facility] [id number] [address] [place] [address] Dec, Labyrinthitis of left ear H8 3.02 [place] [address] [place] [id number] [address] [place] [address] Nov, Arthritis M19.90 [place] [address] [place] [id number] [address] [place] [address] Nov, Labyrinthitis of left ear H8 3.02 [place] [address] [place] [id number] [address] [place] [address] Nov, BMI 40.0-44.9, adult Z68.41 ; Chronic kidney disease, stage 4 (severe) N18.4 and Acute right-sided thoracic back pain M54.6 [place] [address] [place] [id number] [address] [place] [address] October, Labyrinthitis of left ear H8 3.02 and Arthritis M19.90 [place] [address] [facility] [id number] [address] [place] [address] Sep, BPV (benign positional verti go), bilateral H81.13 ; Dysfunction of left eustachian tube H69.82 and BMI 40.0-44.9, adult Z68.41 [place] [address] [place] [id number] [address] [place] [address] Sep, Labyrinthitis of left ear H8 3.02 and Arthritis M19.90 [facility] [address] [id number] [address] [place] [address] Sep, [facility] [address] [id number] [address] [place] [address] Sep, [facility] [address] [id number] [address] [place] [phone] Sep, Chronic kidney disease, stag e 4 (severe) N18.4 [facility] [address] [id number] [address] [place] [address] Sep, Chronic kidney disease, stag e 4 (severe) N18.4 [facility] [address] [id number] [address] [place] [address] Aug, Labyrinthitis of left ear H8 3.02 and Arthritis M19.90 [facility] [address] [id number] [address] [place] [address] Aug, [facility] [address] [id number] [address] [place] [address] Jul, [facility] [address] [id number] [address] [place] [address] Jul, Arthritis M19.90 and Labyrin thitis of left ear H83.02 [facility] [address] [facility] [id number] [address] [place] [address] Jul, [facility] [address] [id number] [address] [place] [phone] Jun, [facility] [address] [facility] [id number] [address] [place] [address] Jun, Arthritis M19.90 and Labyrin thitis of left ear H83.02 [facility] [address] [facility] [id number] [address] [place] [address] Jun, Pre-op evaluation Z01.818 ; BMI 40.0-44.9, adult Z68.41 and Encounter for immunization Z23 [place] [address] [address] May, Arthritis M19.90 and Labyrin thitis of left ear H83.02 [place] [address] [place] [id number] [place] [address] Apr, Labyrinthitis of left ear H8 3.02 [place] [address] [address] Apr, Arthritis M19.90 and Labyrin thitis of left ear H83.02 [place] [address] [address] Mar, Arthritis M19.90 and Labyrin thitis of left ear H83.02 [place] [address] [address] Mar, Chronic kidney disease, stag e 4 (severe) N18.4 [place] [address] [address] Feb, Arthritis M19.90 and Labyrin thitis of left ear H83.02 [place] [address] [place] [id number] [place] [address] Jan, Labyrinthitis of left ear H8 3.02 and 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 [place] [address] [place] [id number] [address] [place] [address] Dec, Arthritis M19.90 [place] [address] [place] [id number] [place] [address] Dec, BPV (benign positional verti go), bilateral H81.13 [place] [address] [place] [id number] [address] [place] [address] Dec, [place] [address] [address] Dec, [facility] [address] [facility] [id number] [address] [place] [address] Dec, [facility] [address] [facility] [id number] [address] [place] [address] Nov, Arthritis M19.90 and Deficie ncy of other specified B group vitamins E53.8 [facility] [address] [facility] [id number] [address] [place] [address] Nov, Arthritis M19.90 [facility] [address] [facility] [id number] [address] [place] [address] Nov, Hyperparathyroidism E21.3 [facility] [address] [facility] [id number] [address] [place] [phone] October, [facility] [address] [facility] [id number] [address] [place] [address] October, Hyperparathyroidism E21.3 [facility] [address] [facility] [id number] [address] [place] [address] October, [facility] [address] [facility] [id number] [address] [place] [address] October, Renal insufficiency N28.9 an d Hyperparathyroidism E21.3 [facility] [address] [facility] [id number] [address] [place] [address] October, [facility] [address] [facility] [id number] [address] [place] [address] October, Renal insufficiency N28.9 an d Hyperparathyroidism E21.3 [facility] [address] [facility] [id number] [address] [place] [address] October, Arthritis M19.90 [facility] [address] [facility] [id number] [address] [place] [address] Sep, [facility] [address] [facility] [id number] [address] [place] [address] Sep, Lumbar neuritis M54.16 ; Tho racic abscess J86.9 and Deficiency 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 [facility] [address] [id number] [address] [place] [address] Sep, [facility] [address] [facility] [id number] [address] [place] [address] Aug, Arthritis M19.90 [facility] [address] [facility] [id number] [address] [place] [address] Aug, Hyperparathyroidism E21.3 [facility] [address] [facility] [id number] [address] [place] [address] Aug, Hyperparathyroidism E21.3 [facility] [address] [facility] [id number] [address] [place] [address] Aug, Arthritis M19.90 [facility] [address] [place] [id number] [address] [place] [address] Jul, Mass of throat R22.1 [facility] [address] [facility] [id number] [address] [place] [address] 16 Jul, 2016 [facility] [address] [facility] [id number] [address] [place] [address] Jul, Arthritis M19.90 [facility] [address] [facility] [id number] [address] [place] [address] Jun, Arthritis M19.90 [facility] [address] [facility] [id number] [address] [place] [address] Jun, [facility] [address] [facility] [id number] [address] [place] [address] Jun, Renal insufficiency N28.9 an d 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 [facility] [address] [facility] [id number] [address] [place] [address] 05 Jun, 2016 Medicare welcome exam Z00.00 ; Encounter for immunization Z23 ; Arthritis M19.90 ; Medicare annual wellness visit, initial Z00.00 ; Medicare annual wellness visit, subsequent Z00.00 and 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 [facility] [address] [facility] [id number] [address] [place] [address] 29 May, 2016 Renal insufficiency N28.9 an d 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 [facility] [address] [facility] [id number] [address] [place] [address] 19 May, 2016 Renal insufficiency N28.9 [facility] [address] [facility] [id number] [address] [place] [address] 16 May, 2016 Renal insufficiency N28.9 [facility] [address] [facility] [id number] [address] [place] [address] May, [facility] [address] [facility] [id number] [address] [place] [phone] 16 Apr, 2016 [facility] [address] [place] [id number] [address] [place] [address] Apr, [facility] [address] [place] [id number] [address] [place] [address] 14 Apr, 2016 Mass of throat R22.1 [facility] [address] [facility] [id number] [address] [place] [address] Apr, [facility] [address] [facility] [id number] [address] [place] [address] Apr, Mass of throat R22.1 [facility] [address] [facility] [id number] [address] [place] [phone] 04 Apr, 2016 Mass of throat R22.1 [facility] [address] [facility] [id number] [address] [place] [address] Mar, [facility] [address] [place] [id number] [address] [place] [address] Mar, [facility] [address] [facility] [id number] [address] [place] [address] Mar, [facility] [address] [place] [id number] [address] [place] [address] Mar, Parathyroid abnormality E21. 5 and Encounter for immunization Z23 [facility] [address] [id number] [address] [place] [address] Mar, [facility] [address] [id number] [address] [place] [address] Mar, [facility] [address] [id number] [address] [place] [address] 21 Feb, 2016 Renal insufficiency N28.9 an d Hyperparathyroidism E21.3 [facility] [address] [id number] [address] [place] [address] 19 Feb, 2016 [facility] [address] [id number] [address] [place] [phone] 15 Feb, 2016 Renal insufficiency N28.9 an d Hyperparathyroidism E21.3 [facility] [address] [id number] [address] [place] [phone] 14 Feb, 2016 [facility] [address] [id number] [address] [place] [address] 12 Feb, 2016 [facility] [address] [id number] [address] [place] [phone] 09 Feb, 2016 [facility] [address] [id number] [address] [place] [address] Jan, [facility] [address] [id number] [address] [place] [address] Jan, Arthritis M19.90 ; Lumbago w ith sciatica, right side M54.41 and Other chronic pain G89.29 [facility] [address] [id number] [address] [place] [address] Jan, [facility] [address] [id number] [address] [place] [address] Dec, Arthritis M19.90 ; Lumbago w ith sciatica, right side M54.41 and Other chronic pain G89.29 [facility] [address] [id number] [address] [place] [address] 16 Nov, 2015 Deficiency of other specifie d B group vitamins E53.8 ; Primary insomnia F51.01 ; Mood disorder F39 and Lumbago with sciatica, right side M54.41 [facility] [address] [place] [id number] [address] [place] [address] 13 Nov, 2015 Hyperparathyroidism E21.3 [facility] [address] [place] [id number] [address] [place] [address] Nov, Unspecified kidney failure N 19 and Hyperparathyroidism E21.3 [facility] [address] [place] [id number] [address] [place] [address] October, Hyperparathyroidism E21.3 [place] [address] [place] [id number] [place] [address] October, [place] [address] [address] October, Hyperparathyroidism E21.3 [place] [address] [place] [id number] [place] [address] October, Hyperparathyroidism E21.3 [place] [address] [address] Sep, Hyperparathyroidism E21.3 ; Hypercholesterolemia E78.0 and Arthritis M19.90 [place] [id number] [place] [address] Aug, [facility] [address] [place] [id number] [address] [place] [address] Aug, Deficiency of other specifie d B group vitamins E53.8 [facility] [address] [facility] [id number] [address] [place] [address] 07 Aug, 2015 [facility] [address] [place] [id number] [address] [place] [address] Jul, Urinary frequency R35.0 [place] [address] [place] [id number] [place] [address] Jul, Urinary frequency R35.0 [facility] [address] [facility] [id number] [address] [place] [address] Jul, [facility] [address] [facility] [id number] [address] [place] [address] Jul, [facility] [address] [facility] [id number] [address] [place] [address] Jun, Pain in left knee M25.562 [facility] [address] [id number] [address] [place] [address] Jun, [facility] [address] [facility] [id number] [address] [place] [address] May, Swelling of left knee joint M25.462 [facility] [address] [facility] [id number] [address] [place] [address] May, [facility] [address] [facility] [id number] [address] [place] [address] May, [facility] [address] [facility] [id number] [address] [place] [address] May, [facility] [address] [facility] [id number] [address] [place] [address] Apr, Renal insufficiency N28.9 an d Chronic kidney disease, stage 4 (severe) N18.4 [facility] [address] [facility] [id number] [address] [place] [phone] Apr, Unspecified kidney failure N 19 [facility] [address] [facility] [id number] [address] [place] [address] Apr, Unspecified kidney failure N 19 [facility] [address] [facility] [id number] [address] [place] [address] Apr, [facility] [address] [facility] [id number] [address] [place] [address] Apr, Hyperparathyroidism, unspeci fied 252.00 [facility] [address] [place] [id number] [address] [place] [address] Apr, [facility] [address] [id number] [address] [place] [address] Mar, [facility] [address] [id number] [address] [place] [address] Mar, [facility] [address] [facility] [id number] [address] [place] [address] Mar, Hyperparathyroidism, unspeci fied 252.00 [facility] [address] [id number] [address] [place] [address] Feb, [facility] [address] [id number] [address] [place] [address] Feb, Otalgia 388.70 [facility] [address] [facility] [id number] [address] [place] [address] Feb, [facility] [address] [facility] [id number] [address] [place] [address] Feb, [facility] [address] [id number] [address] [place] [address] Jan, [facility] [address] [facility] [id number] [address] [place] [address] Jan, Hyperparathyroidism, unspeci fied 252.00 [facility] [address] [facility] [id number] [address] [place] [address] Jan, [facility] [address] [facility] [id number] [address] [place] [address] Jan, Other B-complex deficiencies 266.2 and Hyperparathyroidism, unspecified 252.00 [facility] [address] [id number] [address] [place] [address] Jan, [facility] [address] [facility] [id number] [address] [place] [address] Jan, [facility] [address] [id number] [address] [place] [address] Jan, [facility] [address] [id number] [address] [place] [address] Dec, [facility] [address] [id number] [address] [place] [phone] Dec, [facility] [address] [id number] [address] [place] [phone] Dec, [facility] [address] [id number] [address] [place] [phone] Nov, Routine check-up V70.0 and P re-op exam V72.84 [facility] [address] [id number] [address] [place] [phone] Nov, [facility] [address] [id number] [address] [place] [address] Nov, [facility] [address] [id number] [address] [place] [phone] October, [facility] [address] [id number] [address] [place] [address] October, Other B-complex deficiencies 266.2 [facility] [address] [id number] [address] [place] [address] October, [facility] [address] [id number] [address] [place] [address] Sep, [facility] [address] [id number] [address] [place] [phone] Sep, [facility] [address] [id number] [address] [place] [id number] Aug, [facility] [address] [id number] [address] [place] [phone] Aug, [facility] [address] [id number] [address] [place] [id number] Aug, [facility] [address] [id number] [address] [place] [address], [place] [address] 17 Aug, 2014 [facility] [address] [id number] [address] [place] [address], [place] [address] 11 Aug, 2014 [facility] [address] [id number] [address] [place] [address], [place] [address] Aug, 2014 [facility] [address] [id number] [address] [place] [address], [place] [address] 18 Jul, 2014 [facility] [address] [id number] [address] [place] [address], [place] [address] Jul, 2014 [facility] [address] [id number] [address] [place] [address], [place] [address] Jul, 2014 [facility] [address] [id number] [address] [place] [address], [place] [address] Jul, 2014 [facility] [address] [id number] [address] [place] [address], [place] [address] Jul, 2014 [facility] [address] [id number] [address] [place] [address], [place] [address] Jul, 2014 [facility] [address] [id number] [address] [place] [address], [place] [address] 10 Jul, 2014 [facility] [address] [id number] [address] [place] [address], [place] [address] 10 Jul, 2014 [facility] [address] [id number] [address] [place] [address], [place] [address] Jul, 2014 [facility] [address] [id number] [address] [place] [address], [place] [address] Jul, 2014 [facility] [address] [id number] [address] [place] [address], [place] [address] Jul, 2014 [facility] [address] [id number] [address] [place] [id number] Jul, 2014 [facility] [address] [id number] [address] [place] [address], [place] [address] Jul, [facility] [address] [id number] [address] [place] [address], [place] [address] Jul, [facility] [address] [id number] [address] [place] [address], [place] [address] Jun, [facility] [address] [id number] [address] [place] [address], [place] [address] Jun, [facility] [address] [id number] [address] [place] [address], [place] [address] Jun, [facility] [address] [id number] [address] [place] [address], [place] [address] Jun, [facility] [address] [id number] [address] [place] [address], [place] [address] Jun, [facility] [address] [id number] [address] [place] [address], [place] [address] Jun, [facility] [address] [id number] [address] [place] [address], [place] [address] Jun, [facility] [address] [id number] [address] [place] [address], [place] [address] Jun, [facility] [address] [id number] [address] [place] [address], [place] [address] Jun, [facility] [address] [id number] [address] [place] [address], [place] [address] Jun, [facility] [address] [id number] [address] [place] [address], [place] [address] Jun, [facility] [address] [id number] [address] [place] [address], [place] [address] Jun, [facility] [address] [id number] [address] [place] [address], [place] [address] Jun, [facility] [address] [id number] [address] [place] [address], [place] [address] Jun, [facility] [address] [id number] [address] [place] [address], [place] [address] 15 May, 2014 [facility] [address] [id number] [address] [place] [address], [place] [address] May, [facility] [address] [id number] [address] [place] [address], [place] [address] May, [facility] [address] [id number] [address] [place] [address], [place] [address] May, [facility] [address] [id number] [address] [place] [address], [place] [address] Apr, [facility] [address] [id number] [address] [place] [address], [place] [address] Apr, [facility] [address] [id number] [address] [place] [address], [place] [address] Apr, [facility] [address] [id number] [address] [place] [address], [place] [address] Apr, [facility] [address] [id number] [address] [place] [address], [place] [address] Apr, [facility] [address] [id number] [address] [place] [address], [place] [address] Apr, [facility] [address] [id number] [address] [place] [address], [place] [address] Mar, [facility] [address] [id number] [address] [place] [address], [place] [address] Mar, [facility] [address] [id number] [address] [place] [address], [place] [address] Mar, [facility] [address] [id number] [address] [place] [address], [place] [address] Mar, [facility] [address] [id number] [address] [place] [address], [place] [address] Mar, [facility] [address] [id number] [address] [place] [address], [place] [address] Mar, [facility] [address] [id number] [address] [place] [address], [place] [address] 13 Mar, 2014 [facility] [address] [id number] [address] [place] [address], [place] [address] Mar, [facility] [address] [id number] [address] [place] [address], [place] [address] Mar, 2013 [facility] [address] [id number] [address] [place] [address], [place] [address] Mar, 2013 [facility] [address] [id number] [address] [place] [address], [place] [address] Mar, [facility] [address] [id number] [address] [place] [address], [place] [address] Mar, [facility] [address] [id number] [address] [place] [address], [place] [address] Mar, [facility] [address] [id number] [address] [place] [address], [place] [address] 26 Feb, 2013 [facility] [address] [id number] [address] [place] [address], [place] [address] 26 Feb, 2013 [facility] [address] [id number] [address] [place] [address], [place] [address] 23 Feb, 2013 [facility] [address] [id number] [address] [place] [address], [place] [address] 23 Feb, 2013 [facility] [address] [id number] [address] [place] [address], [place] [address] 19 Feb, 2013 [facility] [address] [id number] [address] [place] [address], [place] [address] 19 Feb, 2013 [facility] [address] [id number] [address] [place] [address], [place] [address] 13 Feb, 2013 [facility] [address] [id number] [address] [place] [address], [place] [address] 13 Feb, 2013 [facility] [address] [id number] [address] [place] [address] [place] [address] Feb, [facility] [address] [id number] [address] [place] [address], [place] [address] Feb, [facility] [address] [id number] [address] [place] [address], [place] [address] Jan, [facility] [address] [id number] [address] [place] [address], [place] [address] Jan, [facility] [address] [id number] [address] [place] [address], [place] [address] Dec, [facility] [address] [id number] [address] [place] [address], [place] [address] Dec, [facility] [address] [id number] [address] [place] [address], [place] [address] Dec, [facility] [address] [id number] [address] [place] [address], [place] [address] Dec, [facility] [address] [id number] [address] [place] [address], [place] [address] Dec, [facility] [address] [id number] [address] [place] [address], [place] [address] Dec, [facility] [address] [id number] [address] [place] [address], [place] [address] Nov, [facility] [address] [id number] [address] [place] [address], [place] [address] Nov, [facility] [address] [id number] [address] [place] [address], [place] [address] Nov, [facility] [address] [id number] [address] [place] [address], [place] [address] Nov, [facility] [address] [id number] [address] [place] [address], [place] [address] October, [facility] [address] [id number] [address] [place] [address], [place] [address] October, [facility] [address] [id number] [address] [place] [address], [place] [address] October, [facility] [address] [id number] [address] [place] [address], [place] [address] October, [facility] [address] [id number] [address] [place] [address], [place] [address] October, [facility] [address] [id number] [address] [place] [address], [place] [address] October, [facility] [address] [id number] [address] [place] [address], [place] [address] October, [facility] [address] [id number] [address] [place] [address], [place] [address] October, [facility] [address] [id number] [address] [place] [address], [place] [address] October, [facility] [address] [id number] [address] [place] [address], [place] [address] October, [facility] [address] [id number] [address] [place] [address], [place] [address] October, [facility] [address] [id number] [address] [place] [address], [place] [address] October, [facility] [address] [id number] [address] [place] [address], [place] [address] October, [facility] [address] [id number] [address] [place] [address], [place] [address] October, [facility] [address] [id number] [address] [place] [address], [place] [address] October, [facility] [address] [id number] [address] [place] [address], [place] [address] October, [facility] [address] [id number] [address] [place] [address], [place] [address] Sep, [facility] [address] [id number] [address] [place] [address], [place] [address] Sep, [facility] [address] [id number] [facility] [place] [address] Sep, [facility] [address] [id number] [address] [place] [address], [place] [address] Sep, [facility] [address] [id number] [facility] [place] [address] Sep, [facility] [address] [id number] [address] [place] [address], [place] [address] Sep, [facility] [address] [id number] [facility] [place] [address] Aug, [facility] [address] [id number] [address] [place] [address], [place] [address] Aug, [facility] [address] [id number] [address] [place] [address], [place] [address] Aug, [facility] [address] [id number] [address] [place] [address], [place] [address] Aug, [facility] [address] [id number] [address] [place] [address], [place] [address] Aug, [facility] [address] [id number] [address] [place] [address], [place] [address] Aug, [facility] [address] [id number] [address] [place] [address], [place] [address] Jul, [facility] [address] [id number] [address] [place] [address], [place] [address] Jul, [facility] [address] [id number] [address] [place] [address], [place] [address] Jul, [facility] [address] [id number] [address] [place] [address], [place] [address] Jul, [facility] [address] [id number] [address] [place] [address], [place] [address] Jun, [facility] [address] [id number] [address] [place] [address], [place] [address] 13 Jun, 2013 [facility] [address] [id number] [address] [place] [address], [place] [address] 11 May, 2013 [facility] [address] [id number] [address] [place] [address], [place] [address] 11 May, 2013 [facility] [address] [id number] [address] [place] [address], [place] [address] May, [facility] [address] [id number] [address] [place] [address], [place] [address] May, [facility] [address] [id number] [address] [place] [address], [place] [address] May, [facility] [address] [id number] [address] [place] [address], [place] [address] Apr, [facility] [address] [id number] [address] [place] [address], [place] [address] Apr, [facility] [address] [id number] [address] [place] [address], [place] [address] Apr, [facility] [address] [id number] [address] [place] [address], [place] [address] Apr, [facility] [address] [id number] [address] [place] [address], [place] [address] 04 Apr, 2013 [facility] [address] [id number] [address] [place] [address], [place] [address] 04 Apr, 2013 [facility] [address] [id number] [address] [place] [address], [place] [address] 15 Mar, 2013 [facility] [address] [id number] [address] [place] [address], [place] [address] 15 Mar, 2013 [facility] [address] [id number] [address] [place] [address], [place] [address] 14 Mar, 2013 [facility] [address] [id number] [address] [place] [address], [place] [address] Mar, [facility] [address] [id number] [address] [place] [address], [place] [address] Mar, [facility] [address] [id number] [address] [place] [address], [place] [address] Mar, [facility] [address] [id number] [address] [place] [address], [place] [address] Feb, [facility] [address] [id number] [address] [place] [address], [place] [address] Feb, [facility] [address] [id number] [address] [place] [address], [place] [address] Feb, [facility] [address] [id number] [address] [place] [address], [place] [address] Jan, [facility] [address] [id number] [address] [place] [address], [place] [address] Jan, [facility] [address] [id number] [address] [place] [address], [place] [address] Jan, [facility] [address] [id number] [address] [place] [address], [place] [address] Jan, [facility] [address] [id number] [address] [place] [address], [place] [address] Jan, [facility] [address] [id number] [address] [place] [address], [place] [address] Jan, [facility] [address] [id number] [address] [place] [address], [place] [address] Dec, [facility] [address] [id number] [address] [place] [address], [place] [address] Dec, [facility] [address] [id number] [address] [place] [address], [place] [address] Dec, [facility] [address] [id number] [address] [place] [address], [place] [address] Dec, [facility] [address] [id number] [address] [place] [address], [place] [address] 18 Dec, 2012 [facility] [address] [id number] [address] [place] [address], [place] [address] 09 Dec, 2012 [facility] [address] [id number] [address] [place] [address], [place] [address] Nov, [facility] [address] [id number] [address] [place] [address], [place] [address] Nov, [facility] [address] [id number] [address] [place] [address], [place] [address] 18 Nov, 2012 [facility] [address] [id number] [address] [place] [address], [place] [address] Nov, [facility] [address] [id number] [address] [place] [address], [place] [address] Nov, [facility] [address] [id number] [address] [place] [address], [place] [address] Nov, [facility] [address] [id number] [address] [place] [address], [place] [address] October, [facility] [address] [id number] [address] [place] [address], [place] [address] October, [facility] [address] [id number] [address] [place] [address], [place] [address] October, [facility] [address] [id number] [address] [place] [address], [place] [address] October, [facility] [address] [id number] [address] [place] [address], [place] [address] October, [facility] [address] [id number] [address] [place] [address], [place] [address] Sep, [facility] [address] [id number] [address] [place] [address], [place] [address] Sep, [facility] [address] [id number] [address] [place] [address], [place] [address] Sep, [facility] [address] [id number] [address] [place] [address], [place] [address] 18 Sep, 2012 [facility] [address] [id number] [address] [place] [address], [place] [address] 09 Sep, 2012 [facility] [address] [id number] [address] [place] [address], [place] [address] 26 Aug, 2012 [facility] [address] [id number] [address] [place] [address], [place] [address] 07 Aug, 2012 [facility] [address] [id number] [address] [place] [address], [place] [address] 04 Aug, 2012 [facility] [address] [id number] [address] [place] [address], [place] [address] Jul, [facility] [address] [id number] [address] [place] [address], [place] [address] Jul, [facility] [address] [id number] [address] [place] [address], [place] [address] Jul, [facility] [address] [id number] [address] [place] [address], [place] [address] 08 Jul, 2012 [facility] [address] [id number] [address] [place] [address], [place] [address] 06 Jul, 2012 [facility] [address] [id number] [address] [place] [address], [place] [address] 05 Jul, 2012 [facility] [address] [id number] [address] [place] [address], [place] [address] 15 Jun, 2012 [facility] [address] [id number] [address] [place] [address], [place] [address] Apr, [facility] [address] [id number] [address] [place] [address], [place] [address] 16 Apr, 2012 [facility] [address] [id number] [address] [place] [address], [place] [address] 12 Apr, 2012 [facility] [address] [id number] [address] [place] [address] Apr, [facility] [address] [id number] [address] [place] [address], [place] [address] Mar, [facility] [address] [id number] [address] [place] [address], [place] [address] Mar, [facility] [address] [id number] [address] [place] [address], [place] [address] Mar, [facility] [address] [id number] [address] [place] [address], [place] [address] Mar, [facility] [address] [id number] [address] [place] [address], [place] [address] Mar, [facility] [address] [id number] [address] [place] [address], [place] [address] Feb, [facility] [address] [id number] [address] [place] [address], [place] [address] Jan, [facility] [address] [id number] [address] [place] [address], [place] [address] Jan, [facility] [address] [id number] [address] [place] [id number] Jan, [facility] [address] [id number] [address] [place] [phone] Dec, [facility] [address] [id number] [address] [place] [phone] Nov, [facility] [address] [id number] [address] [place] [phone] Nov, [facility] [address] [id number] [address] [place] [phone] Nov, [facility] [address] [id number] [address] [place] [phone] Nov, [facility] [address] [id number] [address] [place] [address], [place] [address] Nov, [facility] [address] [facility] [id number] [address] [place] [phone] October, [facility] [address] [facility] [id number] [address] [place] [phone] October, [facility] [address] [facility] [id number] [address] [place] [phone] October, [facility] [address] [facility] [id number] [address] [place] [id number] October, [facility] [address] [facility] [id number] [address] [place] [phone] October, IMMUNIZATIONS No Known Immunizations SOCIAL HISTORY Never Assessed REASON FOR VISIT Controlled Med Refill 04/01/18 PLAN OF CARE VITAL SIGNS MEDICATIONS Medication [...]
[2020-01-25] MEDS: LACTATED RINGERS 1,000 ML IV PRN ×2 (08:03→08:33)
[2020-01-25] MEDS: NS IV 500 ML 500 ML IV PRN ×2 (08:03→10:02)
--- OUTSIDE RECORDS SUMMARY | 2020-01-25 08:03 | XMS REPORT ---
Author Author Velma CORDERO Organization [facility] Address [address] [place] [address] Care Team Providers Care Plant General Manager Name Role Phone STEPHAN CORDERO Unavailable PROBLEMS Type Condition ICD9-CM Code IPK23-GL Code Onset Dates Condition S tatus SNOMED Code Problem Hypercholesteremia E78.0 Active 1 4673315 Problem Arthritis M19.90 Active 9432458 Problem Hyperparathyroidism E21.3 Active 98498515 Problem Primary insomnia F51.01 Active 397 2004 Problem Myalgia M79.1 Active 69560269 Problem Chronic kidney disease, stage 4 (severe) N18.4 Active 364174290 Problem BPV (benign positional vertigo), bilateral H81.13 Active 407905759 Problem Corns L84 Active 775626928 Problem Mood disorder F39 Active 882864 05 Problem 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 Active 13591519 Problem 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 Active 13472606 ALLERGIES No Information ENCOUNTERS Encounter Location Date Diagnosis [facility] [address] [facility] [id number] [address] [place] [phone] Feb, Labyrinthitis of left ear H8 3.02 [facility] [address] [facility] [id number] [address] [place] [phone] Feb, Arthritis M19.90 [facility] [address] [facility] [id number] [address] [place] [phone] Jan, Labyrinthitis of left ear H8 3.02 [facility] [address] [facility] [id number] [address] [place] [phone] Jan, Arthritis M19.90 [facility] [address] [facility] [id number] [address] [place] [phone] Dec, Labyrinthitis of left ear H8 3.02 [facility] [address] [facility] [id number] [address] [place] [phone] Nov, Arthritis M19.90 [facility] [address] [facility] [id number] [address] [place] [phone] Nov, Labyrinthitis of left ear H8 3.02 [facility] [address] [facility] [id number] [address] [place] [phone] Nov, BMI 40.0-44.9, adult Z68.41 ; Chronic kidney disease, stage 4 (severe) N18.4 and Acute right-sided thoracic back pain M54.6 [place] [address] [facility] [id number] [address] [place] [phone] October, Labyrinthitis of left ear H8 3.02 and Arthritis M19.90 [place] [address] [place] [id number] [address] [place] [phone] Sep, BPV (benign positional verti go), bilateral H81.13 ; Dysfunction of left eustachian tube H69.82 and BMI 40.0-44.9, adult Z68.41 [place] [address] [facility] [id number] [address] [place] [phone] Sep, Labyrinthitis of left ear H8 3.02 and Arthritis M19.90 [place] [address] [place] [id number] [address] [place] [phone] Sep, [place] [address] [facility] [id number] [address] [place] [phone] Sep, [place] [address] [facility] [id number] [address] [place] [phone] Sep, Chronic kidney disease, stag e 4 (severe) N18.4 [place] [address] [facility] [id number] [address] [place] [phone] Sep, Chronic kidney disease, stag e 4 (severe) N18.4 [place] [address] [id number] [address] [place] [phone] Aug, Labyrinthitis of left ear H8 3.02 and Arthritis M19.90 [facility] [address] [facility] [id number] [address] [place] [id number] Aug, [facility] [address] [id number] [address] [place] [phone] Jul, [facility] [address] [facility] [id number] [address] [place] [id number] Jul, Arthritis M19.90 and Labyrin thitis of left ear H83.02 [facility] [address] [facility] [id number] [address] [place] [phone] Jul, [facility] [address] [facility] [id number] [address] [place] [phone] Jun, [facility] [address] [facility] [id number] [address] [place] [phone] Jun, Arthritis M19.90 and Labyrin thitis of left ear H83.02 [facility] [address] [facility] [id number] [address] [place] [phone] Jun, Pre-op evaluation Z01.818 ; BMI 40.0-44.9, adult Z68.41 and Encounter for immunization Z23 [facility] [address] [facility] [id number] [address] [place] [address] May, Arthritis M19.90 and Labyrin thitis of left ear H83.02 [facility] [address] [facility] [id number] [address] [place] [phone] Apr, Labyrinthitis of left ear H8 3.02 [facility] [address] [facility] [id number] [address] [place] [address] Apr, Arthritis M19.90 and Labyrin thitis of left ear H83.02 [facility] [address] [facility] [id number] [address] [place] [phone] Mar, Arthritis M19.90 and Labyrin thitis of left ear H83.02 [facility] [address] [id number] [address] [place] [phone] 05 Mar, 2017 Chronic kidney disease, stag e 4 (severe) N18.4 [facility] [address] [id number] [address] [place] [phone] 06 Feb, 2017 Arthritis M19.90 and Labyrin thitis of left ear H83.02 [facility] [address] [id number] [address] [place] [phone] Jan, Labyrinthitis of left ear H8 3.02 and 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 [facility] [address] [id number] [address] [place] [phone] Dec, Arthritis M19.90 [facility] [address] [id number] [address] [place] [phone] Dec, BPV (benign positional verti go), bilateral H81.13 [facility] [address] [id number] [address] [place] [phone] Dec, [facility] [address] [facility] [id number] [address] [place] [phone] Dec, [facility] [address] [facility] [id number] [address] [place] [phone] Dec, [facility] [address] [facility] [id number] [address] [place] [phone] Nov, Arthritis M19.90 and Deficie ncy of other specified B group vitamins E53.8 [facility] [address] [id number] [address] [place] [address] Nov, Arthritis M19.90 [facility] [address] [id number] [address] [place] [phone] Nov, Hyperparathyroidism E21.3 [facility] [address] [facility] [id number] [address] [place] [phone] October, [facility] [address] [facility] [id number] [address] [place] [phone] October, Hyperparathyroidism E21.3 [facility] [address] [facility] [id number] [address] [place] [phone] October, [facility] [address] [facility] [id number] [address] [place] [phone] October, Renal insufficiency N28.9 an d Hyperparathyroidism E21.3 [facility] [address] [facility] [id number] [address] [place] [phone] October, [facility] [address] [facility] [id number] [address] [place] [phone] October, Renal insufficiency N28.9 an d Hyperparathyroidism E21.3 [facility] [address] [facility] [id number] [address] [place] [phone] October, Arthritis M19.90 [facility] [address] [facility] [id number] [address] [place] [phone] Sep, [facility] [address] [facility] [id number] [address] [place] [phone] Sep, Lumbar neuritis M54.16 ; Tho racic abscess J86.9 and 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 [facility] [address] [facility] [id number] [address] [place] [phone] Sep, [facility] [address] [facility] [id number] [address] [place] [phone] Aug, Arthritis M19.90 [facility] [address] [facility] [id number] [address] [place] [phone] Aug, Hyperparathyroidism E21.3 [facility] [address] [facility] [id number] [address] [place] [phone] Aug, Hyperparathyroidism E21.3 [facility] [address] [place] [id number] [address] [place] [phone] Aug, Arthritis M19.90 [facility] [address] [facility] [id number] [address] [place] [phone] Jul, Mass of throat R22.1 [facility] [address] [facility] [id number] [address] [place] [phone] Jul, [facility] [address] [facility] [id number] [address] [place] [phone] Jul, Arthritis M19.90 [facility] [address] [facility] [id number] [address] [place] [phone] Jun, Arthritis M19.90 [facility] [address] [place] [id number] [address] [place] [phone] Jun, [facility] [address] [facility] [id number] [address] [place] [phone] Jun, Renal insufficiency N28.9 an d 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 [facility] [address] [facility] [id number] [address] [place] [phone] 05 Jun, 2016 Medicare welcome exam Z00.00 ; Encounter for immunization Z23 ; Arthritis M19.90 ; Medicare annual wellness visit, initial Z00.00 ; Medicare annual wellness visit, subsequent Z00.00 and 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 [facility] [address] [facility] [id number] [address] [place] [phone] May, Renal insufficiency N28.9 an d 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 [facility] [address] [facility] [id number] [address] [place] [phone] May, Renal insufficiency N28.9 [facility] [address] [place] [id number] [address] [place] [phone] May, Renal insufficiency N28.9 [facility] [address] [facility] [id number] [address] [place] [phone] May, [facility] [address] [place] [id number] [address] [place] [id number] 16 Apr, 2016 [facility] [address] [id number] [address] [place] [phone] 16 Apr, 2016 [facility] [address] [id number] [address] [place] [phone] 14 Apr, 2016 Mass of throat R22.1 [facility] [address] [id number] [address] [place] [phone] 10 Apr, 2016 [facility] [address] [id number] [address] [place] [phone] 10 Apr, 2016 Mass of throat R22.1 [facility] [address] [id number] [address] [place] [phone] 04 Apr, 2016 Mass of throat R22.1 [facility] [address] [facility] [id number] [address] [place] [phone] Mar, [facility] [address] [facility] [id number] [address] [place] [phone] Mar, [facility] [address] [facility] [id number] [address] [place] [phone] Mar, [facility] [address] [facility] [id number] [address] [place] [phone] 24 Mar, 2016 Parathyroid abnormality E21. 5 and Encounter for immunization Z23 [facility] [address] [facility] [id number] [address] [place] [phone] 17 Mar, 2016 [facility] [address] [facility] [id number] [address] [place] [phone] Mar, [facility] [address] [facility] [id number] [address] [place] [phone] 21 Feb, 2016 Renal insufficiency N28.9 an d Hyperparathyroidism E21.3 [facility] [address] [facility] [id number] [address] [place] [phone] 19 Feb, 2016 [facility] [address] [facility] [id number] [address] [place] [phone] 15 Feb, 2016 Renal insufficiency N28.9 an d Hyperparathyroidism E21.3 [place] [address] [facility] [id number] [address] [place] [phone] 14 Feb, 2016 [place] [address] [facility] [id number] [address] [place] [phone] Feb, [place] [address] [place] [id number] [address] [place] [phone] Feb, [place] [address] [place] [id number] [address] [place] [phone] Jan, [place] [address] [place] [id number] [place] [phone] Jan, Arthritis M19.90 ; Lumbago w ith sciatica, right side M54.41 and Other chronic pain G89.29 [place] [address] [phone] Jan, [place] [address] [phone] Dec, Arthritis M19.90 ; Lumbago w ith sciatica, right side M54.41 and Other chronic pain G89.29 [place] [address] [id number] Nov, Deficiency of other specifie d B group vitamins E53.8 ; Primary insomnia F51.01 ; Mood disorder F39 and Lumbago with sciatica, right side M54.41 [place] [address] [place] [id number] [address] [place] [phone] Nov, Hyperparathyroidism E21.3 [place] [address] [place] [id number] [place] [address] Nov, Unspecified kidney failure N 19 and Hyperparathyroidism E21.3 [place] [address] [place] [id number] [address] [place] [phone] October, Hyperparathyroidism E21.3 [place] [address] [place] [id number] [address] [place] [phone] October, [facility] [address] [place] [id number] [address] [place] [phone] October, Hyperparathyroidism E21.3 [facility] [address] [place] [id number] [address] [place] [phone] October, Hyperparathyroidism E21.3 [facility] [address] [place] [id number] [place] [phone] Sep, Hyperparathyroidism E21.3 ; Hypercholesterolemia E78.0 and Arthritis M19.90 [facility] [address] [place] [id number] [address] [place] [phone] Aug, [facility] [address] [phone] Aug, Deficiency of other specifie d B group vitamins E53.8 [facility] [address] [phone] Aug, [facility] [address] [phone] Jul, Urinary frequency R35.0 [facility] [address] [place] [id number] [place] [phone] Jul, Urinary frequency R35.0 [facility] [address] [place] [id number] [address] [place] [phone] Jul, [facility] [address] [place] [id number] [address] [place] [phone] Jul, [facility] [address] [place] [id number] [address] [place] [phone] Jun, Pain in left knee M25.562 [facility] [address] [place] [id number] [address] [place] [phone] Jun, [facility] [address] [place] [id number] [address] [place] [phone] May, Swelling of left knee joint M25.462 [facility] [address] [id number] [address] [place] [phone] May, [facility] [address] [facility] [id number] [address] [place] [phone] May, [facility] [address] [facility] [id number] [address] [place] [phone] May, [facility] [address] [facility] [id number] [address] [place] [phone] Apr, Renal insufficiency N28.9 an d Chronic kidney disease, stage 4 (severe) N18.4 [facility] [address] [facility] [id number] [address] [place] [phone] Apr, Unspecified kidney failure N 19 [facility] [address] [facility] [id number] [address] [place] [phone] Apr, Unspecified kidney failure N 19 [facility] [address] [facility] [id number] [address] [place] [phone] Apr, [facility] [address] [facility] [id number] [address] [place] [phone] Apr, Hyperparathyroidism, unspeci fied 252.00 [facility] [address] [facility] [id number] [address] [place] [phone] Apr, [facility] [address] [facility] [id number] [address] [place] [phone] Mar, [facility] [address] [facility] [id number] [address] [place] [phone] Mar, [facility] [address] [facility] [id number] [address] [place] [phone] Mar, Hyperparathyroidism, unspeci fied 252.00 [facility] [address] [facility] [id number] [address] [place] [phone] Feb, [facility] [address] [facility] [id number] [address] [place] [phone] Feb, Otalgia 388.70 [facility] [address] [facility] [id number] [address] [place] [phone] Feb, [facility] [address] [facility] [id number] [address] [place] [phone] Feb, [facility] [address] [facility] [id number] [address] [place] [phone] Jan, [facility] [address] [facility] [id number] [address] [place] [phone] Jan, Hyperparathyroidism, unspeci fied 252.00 [facility] [address] [facility] [id number] [address] [place] [phone] Jan, [facility] [address] [facility] [id number] [address] [place] [phone] Jan, Other B-complex deficiencies 266.2 and Hyperparathyroidism, unspecified 252.00 [facility] [address] [facility] [id number] [address] [place] [phone] Jan, [facility] [address] [facility] [id number] [address] [place] [phone] Jan, [facility] [address] [facility] [id number] [address] [place] [phone] Jan, [facility] [address] [facility] [id number] [address] [place] [phone] Dec, [facility] [address] [facility] [id number] [address] [place] [phone] Dec, [facility] [address] [facility] [id number] [address] [place] [phone] Dec, [facility] [address] [facility] [id number] [address] [place] [phone] Nov, Routine check-up V70.0 and P re-op exam V72.84 [facility] [address] [facility] [id number] [address] [place] [phone] Nov, [facility] [address] [id number] [address] [place] [address], [place] [phone] Nov, [facility] [address] [id number] [address] [place] [address], [place] [phone] October, [facility] [address] [id number] [address] [place] [address], [place] [address] October, Other B-complex deficiencies 266.2 [facility] [address] [id number] [address] [place] [address], [place] [address] October, [facility] [address] [id number] [address] [place] [address], [place] [phone] Sep, [facility] [address] [id number] [address] [place] [address], [place] [phone] Sep, [facility] [address] [id number] [address] [place] [address], [place] [address] Aug, [facility] [address] [id number] [address] [place] [address], [place] [address] Aug, [facility] [address] [id number] [address] [place] [address], [place] [address] Aug, [facility] [address] [id number] [address] [place] [address], [place] [address] Aug, [facility] [address] [id number] [address] [place] [address], [place] [id number] Aug, [facility] [address] [id number] [address] [place] [address], [place] [address] Aug, [facility] [address] [id number] [address] [place] [address], [place] [id number] 18 Jul, 2014 [facility] [address] [id number] [address] [place] [address], [place] [id number] 18 Jul, 2014 [facility] [address] [id number] [address] [place] [address], [place] [id number] 17 Jul, 2014 [facility] [address] [id number] [address] [place] [address], [place] [id number] 17 Jul, 2014 [facility] [address] [id number] [address] [place] [address], [place] [address] Jul, 2014 [facility] [address] [id number] [address] [place] [address], [place] [address] Jul, 2014 [facility] [address] [id number] [address] [place] [address], [place] [id number] Jul, 2014 [facility] [address] [id number] [address] [place] [address], [place] [address] Jul, 2014 [facility] [address] [id number] [address] [place] [address], [place] [address] Jul, 2014 [facility] [address] [id number] [address] [place] [address], [place] [id number] Jul, 2014 [facility] [address] [id number] [address] [place] [address], [place] [address] Jul, 2014 [facility] [address] [id number] [address] [place] [address], [place] [address] Jul, 2014 [facility] [address] [id number] [address] [place] [address], [place] [address] Jul, [facility] [address] [id number] [address] [place] [id number] Jul, [facility] [address] [id number] [address] [place] [id number] Jun, [facility] [address] [id number] [address] [place] [address], [place] [id number] Jun, [facility] [address] [id number] [address] [place] [id number] Jun, [facility] [address] [id number] [address] [place] [id number] Jun, [facility] [address] [id number] [address] [place] [id number] Jun, [facility] [address] [id number] [address] [place] [address], [place] [id number] Jun, [facility] [facility] [address] [id number] [address] [place] [address], [place] [address] Jun, [facility] [address] [id number] [address] [place] [address], [place] [address] Jun, [facility] [address] [id number] [address] [place] [address], [place] [address] Jun, [facility] [address] [id number] [address] [place] [address], [place] [address] Jun, [facility] [address] [id number] [address] [place] [address], [place] [address] Jun, [facility] [address] [id number] [address] [place] [address], [place] [address] Jun, [facility] [address] [id number] [address] [place] [address], [place] [address] Jun, [facility] [address] [id number] [address] [place] [address], [place] [address] Jun, [facility] [address] [id number] [address] [place] [address], [place] [address] May, [facility] [address] [id number] [address] [place] [address], [place] [address] May, [facility] [address] [id number] [address] [place] [address], [place] [address] May, [facility] [address] [id number] [address] [place] [address], [place] [address] May, [facility] [address] [id number] [address] [place] [address], [place] [address] Apr, [facility] [address] [id number] [address] [place] [address], [place] [address] Apr, [facility] [address] [id number] [address] [place] [address], [place] [address] Apr, [facility] [address] [id number] [address] [place] [address], [place] [address] Apr, [facility] [address] [id number] [address] [place] [address], [place] [address] Apr, [facility] [address] [id number] [address] [place] [address], [place] [address] Apr, [facility] [address] [id number] [address] [place] [address], [place] [address] Mar, [facility] [address] [id number] [address] [place] [address], [place] [address] Mar, [facility] [address] [id number] [address] [place] [address], [place] [address] Mar, [facility] [address] [id number] [address] [place] [address], [place] [address] Mar, [facility] [address] [id number] [address] [place] [address], [place] [address] Mar, [facility] [address] [id number] [address] [place] [address], [place] [address] Mar, [facility] [address] [id number] [address] [place] [address], [place] [address] Mar, [facility] [address] [id number] [address] [place] [address], [place] [address] Mar, [facility] [address] [id number] [address] [place] [address], [place] [address] Mar, [facility] [address] [id number] [address] [place] [address], [place] [address] Mar, [facility] [address] [id number] [address] [place] [address], [place] [address] Mar, [facility] [address] [id number] [address] [place] [address] [address] Mar, [facility] [address] [id number] [address] [place] [address], [place] [address] Mar, [facility] [address] [id number] [address] [place] [address], [place] [address] Feb, [facility] [address] [id number] [address] [place] [address], [place] [address] Feb, [facility] [address] [id number] [address] [place] [address], [place] [address] Feb, [facility] [address] [id number] [address] [place] [address], [place] [address] Feb, [facility] [address] [id number] [address] [place] [address], [place] [address] Feb, [facility] [address] [id number] [address] [place] [address], [place] [address] Feb, [facility] [address] [id number] [address] [place] [address], [place] [address] Feb, [facility] [address] [id number] [address] [place] [address], [place] [address] Feb, [facility] [address] [id number] [address] [place] [address], [place] [address] Feb, [facility] [address] [id number] [address] [place] [address], [place] [address] Feb, [facility] [address] [id number] [address] [place] [address], [place] [address] Jan, [facility] [address] [id number] [address] [place] [address], [place] [address] Jan, [facility] [address] [id number] [address] [place] [address], [place] [address] Dec, [facility] [address] [id number] [address] [place] [address], [place] [address] Dec, [facility] [address] [id number] [facility] [address] Dec, [facility] [address] [id number] [address] [place] [address], [place] [address] Dec, [facility] [address] [id number] [address] [place] [address], [place] [address] Dec, [facility] [address] [id number] [address] [place] [address], [place] [address] Dec, [facility] [address] [id number] [address] [place] [address], [place] [address] Nov, [facility] [address] [id number] [address] [place] [address], [place] [address] Nov, [facility] [address] [id number] [address] [place] [address], [place] [address] Nov, [facility] [address] [id number] [address] [place] [address], [place] [address] Nov, [facility] [address] [id number] [address] [place] [address], [place] [address] October, [facility] [address] [id number] [address] [place] [address], [place] [address] October, [facility] [address] [id number] [address] [place] [address], [place] [address] October, [facility] [address] [id number] [address] [place] [address], [place] [address] October, [facility] [address] [id number] [address] [place] [address], [place] [address] October, [facility] [address] [id number] [address] [place] [address], [place] [address] October, [facility] [address] [id number] [address] [place] [address], [place] [address] October, [facility] [address] [id number] [address] [place] [address], [place] [address] October, [facility] [address] [id number] [address] [place] [address], [place] [address] October, [facility] [address] [id number] [address] [place] [address], [place] [address] October, [facility] [address] [id number] [address] [place] [address], [place] [address] October, [facility] [address] [id number] [address] [place] [address], [place] [address] October, [facility] [address] [id number] [address] [place] [address], [place] [address] October, [facility] [address] [id number] [address] [place] [address], [place] [address] October, [facility] [address] [id number] [address] [place] [address], [place] [address] October, [facility] [address] [id number] [address] [place] [address], [place] [address] October, [facility] [address] [id number] [address] [place] [address], [place] [address] Sep, [facility] [address] [id number] [address] [place] [address], [place] [address] Sep, [facility] [address] [id number] [address] [place] [address], [place] [address] Sep, [facility] [address] [id number] [address] [place] [address], [place] [address] Sep, [facility] [address] [id number] [address] [place] [address], [place] [address] Sep, [facility] [address] [id number] [address] [place] [address], [place] [address] Sep, [facility] [address] [id number] [address] [place] [address], [place] [address] Aug, [facility] [address] [id number] [address] [place] [address], [place] [address] Aug, [facility] [address] [id number] [address] [place] [address], [place] [address] Aug, [facility] [address] [id number] [address] [place] [address], [place] [address] Aug, [facility] [address] [id number] [address] [place] [address], [place] [address] Aug, [facility] [address] [id number] [address] [place] [address], [place] [address] Aug, [facility] [address] [id number] [address] [place] [address], [place] [address] Jul, [facility] [address] [id number] [address] [place] [address], [place] [address] Jul, [facility] [address] [id number] [address] [place] [address], [place] [address] Jul, [facility] [address] [id number] [address] [place] [address], [place] [address] Jul, [facility] [address] [id number] [address] [place] [address], [place] [address] Jun, [facility] [address] [id number] [address] [place] [address], [place] [address] Jun, [facility] [address] [id number] [address] [place] [address], [place] [address] May, [facility] [address] [id number] [address] [place] [address], [place] [address] May, [facility] [address] [id number] [address] [place] [address], [place] [address] May, [facility] [address] [id number] [address] [place] [address], [place] [address] May, [facility] [address] [id number] [address] [place] [address], [place] [address] May, [facility] [address] [id number] [address] [place] [address], [place] [address] 13 Apr, 2013 [facility] [address] [id number] [address] [place] [address], [place] [address] 13 Apr, 2013 [facility] [address] [id number] [address] [place] [address], [place] [address] Apr, [facility] [address] [id number] [address] [place] [address], [place] [address] Apr, [facility] [address] [id number] [address] [place] [address], [place] [address] 04 Apr, 2013 [facility] [address] [id number] [address] [place] [address], [place] [address] 04 Apr, 2013 [facility] [address] [id number] [address] [place] [address], [place] [address] 15 Mar, 2013 [facility] [address] [id number] [address] [place] [address], [place] [address] 15 Mar, 2013 [facility] [address] [id number] [address] [place] [address], [place] [address] 14 Mar, 2013 [facility] [address] [id number] [address] [place] [address], [place] [address] 14 Mar, 2013 [facility] [address] [id number] [address] [place] [address], [place] [address] 11 Mar, 2013 [facility] [address] [id number] [address] [place] [address], [place] [address] 11 Mar, 2013 [facility] [address] [id number] [address] [place] [address], [place] [address] 23 Feb, 2013 [facility] [address] [id number] [address] [place] [address], [place] [address] 19 Feb, 2013 [facility] [address] [id number] [address] [place] [address], [place] [address] 04 Feb, 2013 [facility] [address] [id number] [address] [place] [address], [place] [address] Jan, [facility] [address] [id number] [address] [place] [address], [place] [address] Jan, [facility] [address] [id number] [address] [place] [address], [place] [address] Jan, [facility] [address] [id number] [address] [place] [address], [place] [address] Jan, [facility] [address] [id number] [address] [place] [address], [place] [address] Jan, [facility] [address] [id number] [address] [place] [address], [place] [address] Jan, [facility] [address] [id number] [address] [place] [address], [place] [address] Dec, [facility] [address] [id number] [address] [place] [address], [place] [address] Dec, [facility] [address] [id number] [address] [place] [address], [place] [address] Dec, [facility] [address] [id number] [address] [place] [address], [place] [address] Dec, [facility] [address] [id number] [address] [place] [address], [place] [address] Dec, [facility] [address] [id number] [address] [place] [address], [place] [address] Dec, [facility] [address] [id number] [address] [place] [address], [place] [address] Nov, [facility] [address] [id number] [address] [place] [address], [place] [address] Nov, [facility] [address] [id number] [address] [place] [address], [place] [address] Nov, [facility] [address] [id number] [address] [place] [address], [place] [address] Nov, [facility] [address] [id number] [address] [place] [address], [place] [address] Nov, [facility] [address] [id number] [address] [place] [address], [place] [address] Nov, [facility] [address] [id number] [address] [place] [address], [place] [address] October, [facility] [address] [id number] [address] [place] [address], [place] [address] October, [facility] [address] [id number] [address] [place] [address], [place] [address] October, [facility] [address] [id number] [address] [place] [address], [place] [address] October, [facility] [address] [id number] [address] [place] [address], [place] [address] October, [facility] [address] [id number] [address] [place] [address], [place] [address] Sep, [facility] [address] [id number] [address] [place] [address], [place] [address] Sep, [facility] [address] [id number] [address] [place] [address], [place] [address] Sep, [facility] [address] [id number] [address] [place] [address], [place] [address] Sep, [facility] [address] [id number] [address] [place] [address], [place] [address] Sep, [facility] [address] [id number] [address] [place] [address], [place] [address] Aug, [facility] [address] [id number] [address] [place] [address], [place] [address] Aug, [facility] [address] [id number] [address] [place] [address], [place] [address] Aug, [facility] [address] [id number] [address] [place] [address], [place] [address] Jul, [facility] [address] [id number] [address] [place] [address], [place] [address] Jul, [facility] [address] [id number] [address] [place] [address], [place] [address] Jul, [facility] [address] [id number] [address] [place] [address], [place] [address] Jul, [facility] [address] [id number] [address] [place] [address], [place] [address] Jul, [facility] [address] [id number] [address] [place] [address], [place] [address] Jul, [facility] [address] [id number] [address] [place] [address], [place] [address] Jun, [facility] [address] [id number] [address] [place] [address], [place] [address] Apr, [facility] [address] [id number] [address] [place] [id number] Apr, [facility] [address] [id number] [address] [place] [address], [place] [address] Apr, [facility] [address] [id number] [address] [place] [address] Apr, [facility] [address] [id number] [address] [place] [address], [place] [address] Mar, [facility] [address] [id number] [address] [place] [address] Mar, [facility] [address] [id number] [address] [place] [address], [place] [address] Mar, [facility] [address] [id number] [address] [place] [id number] Mar, [facility] [address] [id number] [address] [place] [address], [place] [address] Mar, [facility] [address] [id number] [address] [place] [address] Feb, [facility] [address] [id number] [address] [place] [id number] Jan, [facility] [address] [id number] [address] [place] [phone] Jan, [facility] [address] [id number] [address] [place] [phone] Jan, [facility] [address] [id number] [address] [place] [phone] Dec, [facility] [address] [id number] [address] [place] [phone] Nov, [facility] [address] [id number] [address] [place] [phone] Nov, [facility] [address] [id number] [address] [place] [phone] Nov, [facility] [address] [id number] [address] [place] [phone] Nov, [facility] [address] [id number] [address] [place] [phone] Nov, [facility] [address] [id number] [address] [place] [phone] October, [facility] [address] [id number] [address] [place] [phone] October, [facility] [address] [id number] [address] [place] [phone] October, [facility] [address] [id number] [address] [place] [phone] October, [facility] [address] [id number] [address] [place] [phone] October, IMMUNIZATIONS No Known Immunizations SOCIAL HISTORY Never Assessed REASON FOR VISIT Controlled Med Refill PLAN OF CARE VITAL SIGNS MEDICATIONS Medication Instructions Dosage Frequency Start Date End Date Duration S tatus Hydrocodone-Acetaminophen 10-325 MG Orally 3 times a day 1 tablet a s needed 8h Jan, 28 days Active RESULTS No Results PROCEDURES [...]
--- OUTSIDE RECORDS SUMMARY | 2020-01-25 08:03 | XMS REPORT ---
Author Author Velma CORDERO Organization [facility] Address [address] [place] [address] Care Team Providers Care [employer] Deployment Lead Name Role Phone STEPHAN CORDERO Unavailable PROBLEMS Type Condition ICD9-CM Code MEC10-TI Code Onset Dates Condition S tatus SNOMED Code Problem Hypercholesteremia E78.0 Active 1 5802414 Problem Arthritis M19.90 Active 2813122 Problem Hyperparathyroidism E21.3 Active 38687883 Problem Primary insomnia F51.01 Active 397 2004 Problem Myalgia M79.1 Active 94452856 Problem Chronic kidney disease, stage 4 (severe) N18.4 Active 422726025 Problem BPV (benign positional vertigo), bilateral H81.13 Active 867620773 Problem Corns L84 Active 724416923 Problem Mood disorder F39 Active 285231 05 Problem 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 Active 81078617 Problem 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 Active 79773838 ALLERGIES No Information ENCOUNTERS Encounter Location Date Diagnosis [facility] [address] [facility] [id number] [address] [place] [phone] Jan, Labyrinthitis of left ear H8 3.02 [facility] [address] [facility] [id number] [address] [place] [phone] Jan, Arthritis M19.90 [facility] [address] [facility] [id number] [address] [place] [phone] Dec, Labyrinthitis of left ear H8 3.02 [facility] [address] [facility] [id number] [address] [place] [address] Nov, Arthritis M19.90 [facility] [address] [facility] [id number] [address] [place] [phone] Nov, Labyrinthitis of left ear H8 3.02 [facility] [address] [id number] [address] [place] [phone] Nov, BMI 40.0-44.9, adult Z68.41 ; Chronic kidney disease, stage 4 (severe) N18.4 and Acute right-sided thoracic back pain M54.6 [facility] [address] [facility] [id number] [address] [place] [phone] October, Labyrinthitis of left ear H8 3.02 and Arthritis M19.90 [facility] [address] [id number] [address] [place] [phone] Sep, BPV (benign positional verti go), bilateral H81.13 ; Dysfunction of left eustachian tube H69.82 and BMI 40.0-44.9, adult Z68.41 [place] [address] [facility] [id number] [address] [place] [phone] Sep, Labyrinthitis of left ear H8 3.02 and Arthritis M19.90 [place] [address] [facility] [id number] [address] [place] [phone] Sep, [place] [address] [facility] [id number] [address] [place] [phone] Sep, [place] [address] [facility] [id number] [address] [place] [phone] Sep, Chronic kidney disease, stag e 4 (severe) N18.4 [facility] [address] [id number] [address] [place] [address] Sep, Chronic kidney disease, stag e 4 (severe) N18.4 [facility] [address] [id number] [address] [place] [phone] Aug, Labyrinthitis of left ear H8 3.02 and Arthritis M19.90 [facility] [address] [facility] [id number] [address] [place] [phone] Aug, [facility] [address] [facility] [id number] [address] [place] [phone] Jul, [facility] [address] [id number] [address] [place] [phone] Jul, Arthritis M19.90 and Labyrin thitis of left ear H83.02 [facility] [address] [facility] [id number] [address] [place] [phone] Jul, [facility] [address] [facility] [id number] [address] [place] [phone] Jun, [place] [address] [facility] [id number] [address] [place] [phone] Jun, Arthritis M19.90 and Labyrin thitis of left ear H83.02 [place] [address] [place] [id number] [address] [place] [address] Jun, Pre-op evaluation Z01.818 ; BMI 40.0-44.9, adult Z68.41 and Encounter for immunization Z23 [place] [address] [facility] [id number] [address] [place] [address] May, Arthritis M19.90 and Labyrin thitis of left ear H83.02 [place] [address] [place] [id number] [address] [place] [address] Apr, Labyrinthitis of left ear H8 3.02 [place] [address] [place] [id number] [address] [place] [address] Apr, Arthritis M19.90 and Labyrin thitis of left ear H83.02 [place] [address] [facility] [id number] [address] [place] [phone] Mar, Arthritis M19.90 and Labyrin thitis of left ear H83.02 [facility] [address] [facility] [id number] [address] [place] [phone] 05 Mar, 2017 Chronic kidney disease, stag e 4 (severe) N18.4 [place] [address] [facility] [id number] [address] [place] [address] Feb, Arthritis M19.90 and Labyrin thitis of left ear H83.02 [facility] [address] [facility] [id number] [address] [place] [address] Jan, Labyrinthitis of left ear H8 3.02 and 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 [facility] [address] [place] [id number] [address] [place] [address] Dec, Arthritis M19.90 [facility] [address] [facility] [id number] [address] [place] [phone] Dec, BPV (benign positional verti go), bilateral H81.13 [place] [address] [place] [id number] [address] [place] [phone] Dec, [place] [address] [place] [id number] [address] [place] [phone] Dec, [facility] [address] [place] [id number] [address] [place] [phone] Dec, [facility] [address] [facility] [id number] [address] [place] [address] Nov, Arthritis M19.90 and Deficie ncy of other specified B group vitamins E53.8 [place] [address] [facility] [id number] [address] [place] [address] Nov, Arthritis M19.90 [facility] [address] [facility] [id number] [address] [place] [phone] Nov, Hyperparathyroidism E21.3 [facility] [address] [facility] [id number] [address] [place] [phone] October, [place] [address] [place] [id number] [address] [place] [phone] October, Hyperparathyroidism E21.3 [facility] [address] [place] [id number] [address] [place] [address] October, [place] [address] [facility] [id number] [address] [place] [phone] October, Renal insufficiency N28.9 an d Hyperparathyroidism E21.3 [facility] [address] [facility] [id number] [address] [place] [phone] October, [facility] [address] [facility] [id number] [address] [place] [phone] October, Renal insufficiency N28.9 an d Hyperparathyroidism E21.3 [facility] [address] [facility] [id number] [address] [place] [address] October, Arthritis M19.90 [facility] [address] [facility] [id number] [address] [place] [phone] Sep, [facility] [address] [facility] [id number] [address] [place] [address] Sep, Lumbar neuritis M54.16 ; Tho racic abscess J86.9 and 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 [facility] [address] [facility] [id number] [address] [place] [phone] Sep, [facility] [address] [facility] [id number] [address] [place] [phone] Aug, Arthritis M19.90 [facility] [address] [facility] [id number] [address] [place] [address] Aug, Hyperparathyroidism E21.3 [facility] [address] [facility] [id number] [address] [place] [phone] Aug, Hyperparathyroidism E21.3 [facility] [address] [facility] [id number] [address] [place] [address] Aug, Arthritis M19.90 [facility] [address] [facility] [id number] [address] [place] [address] Jul, Mass of throat R22.1 [facility] [address] [facility] [id number] [address] [place] [address] Jul, [facility] [address] [facility] [id number] [address] [place] [address] 10 Jul, 2016 Arthritis M19.90 [facility] [address] [facility] [id number] [address] [place] [phone] Jun, Arthritis M19.90 [facility] [address] [facility] [id number] [address] [place] [phone] Jun, [facility] [address] [facility] [id number] [address] [place] [phone] Jun, Renal insufficiency N28.9 an d Parathyroid 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 [facility] [address] [facility] [id number] [address] [place] [phone] 05 Jun, 2016 Medicare welcome exam Z00.00 ; Encounter for immunization Z23 ; Arthritis M19.90 ; Medicare annual wellness visit, initial Z00.00 ; Medicare annual wellness visit, subsequent Z00.00 and 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 [facility] [address] [facility] [id number] [address] [place] [phone] May, Renal insufficiency N28.9 an d Parathyroid 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 [facility] [address] [facility] [id number] [address] [place] [address] May, Renal insufficiency N28.9 [facility] [address] [facility] [id number] [address] [place] [address] May, Renal insufficiency N28.9 [facility] [address] [facility] [id number] [address] [place] [phone] 14 May, 2016 [facility] [address] [facility] [id number] [address] [place] [phone] Apr, [facility] [address] [place] [id number] [address] [place] [phone] Apr, [facility] [address] [facility] [id number] [address] [place] [phone] Apr, Mass of throat R22.1 [place] [address] [id number] [address] [place] [phone] 10 Apr, 2016 [facility] [address] [id number] [address] [place] [address] 10 Apr, 2016 Mass of throat R22.1 [facility] [address] [id number] [address] [place] [phone] 04 Apr, 2016 Mass of throat R22.1 [facility] [address] [id number] [address] [place] [address] Mar, [facility] [address] [id number] [address] [place] [phone] Mar, [facility] [address] [id number] [address] [place] [address] Mar, [facility] [address] [id number] [address] [place] [phone] 24 Mar, 2016 Parathyroid abnormality E21. 5 and Encounter for immunization Z23 [facility] [address] [id number] [address] [place] [phone] 17 Mar, 2016 [facility] [address] [id number] [address] [place] [phone] 11 Mar, 2016 [facility] [address] [facility] [id number] [address] [place] [address] 21 Feb, 2016 Renal insufficiency N28.9 an d Hyperparathyroidism E21.3 [facility] [address] [id number] [address] [place] [phone] 19 Feb, 2016 [facility] [address] [id number] [address] [place] [phone] 15 Feb, 2016 Renal insufficiency N28.9 an d Hyperparathyroidism E21.3 [facility] [address] [id number] [address] [place] [phone] 14 Feb, 2016 [facility] [address] [facility] [id number] [address] [place] [address] 12 Feb, 2016 [facility] [address] [facility] [id number] [address] [place] [address] Feb, [facility] [address] [facility] [id number] [address] [place] [phone] Jan, [facility] [address] [facility] [id number] [address] [place] [address] Jan, Arthritis M19.90 ; Lumbago w ith sciatica, right side M54.41 and Other chronic pain G89.29 [facility] [address] [facility] [id number] [address] [place] [phone] Jan, [facility] [address] [place] [id number] [address] [place] [address] Dec, Arthritis M19.90 ; Lumbago w ith sciatica, right side M54.41 and Other chronic pain G89.29 [place] [address] [place] [id number] [address] [place] [address] Nov, Deficiency of other specifie d B group vitamins E53.8 ; Primary insomnia F51.01 ; Mood disorder F39 and Lumbago with sciatica, right side M54.41 [place] [address] [facility] [id number] [address] [place] [address] Nov, Hyperparathyroidism E21.3 [place] [address] [place] [id number] [address] [place] [phone] Nov, Unspecified kidney failure N 19 and Hyperparathyroidism E21.3 [place] [address] [place] [id number] [address] [place] [address] October, Hyperparathyroidism E21.3 [place] [address] [place] [id number] [address] [place] [address] October, [facility] [address] [place] [id number] [address] [place] [address] October, Hyperparathyroidism E21.3 [place] [address] [place] [id number] [address] [place] [phone] October, Hyperparathyroidism E21.3 [facility] [address] [facility] [id number] [address] [place] [phone] Sep, Hyperparathyroidism E21.3 ; Hypercholesterolemia E78.0 and Arthritis M19.90 [facility] [address] [facility] [id number] [address] [place] [phone] Aug, [facility] [address] [address] Aug, Deficiency of other specifie d B group vitamins E53.8 [facility] [address] [facility] [id number] [address] [place] [address] Aug, [facility] [address] [place] [id number] [address] [place] [phone] Jul, Urinary frequency R35.0 [facility] [address] [place] [id number] [address] [place] [phone] Jul, Urinary frequency R35.0 [facility] [address] [facility] [id number] [address] [place] [address] Jul, [facility] [address] [place] [id number] [address] [place] [address] Jul, [facility] [address] [place] [id number] [address] [place] [address] Jun, Pain in left knee M25.562 [facility] [address] [facility] [id number] [address] [place] [address] Jun, [facility] [address] [place] [id number] [address] [place] [address] May, Swelling of left knee joint M25.462 [facility] [address] [place] [id number] [address] [place] [address] May, [facility] [address] [place] [id number] [address] [place] [phone] May, [facility] [address] [place] [id number] [place] [address] May, [facility] [address] [facility] [id number] [address] [place] [phone] Apr, Renal insufficiency N28.9 an d Chronic kidney disease, stage 4 (severe) N18.4 [facility] [address] [facility] [id number] [address] [place] [address] Apr, Unspecified kidney failure N 19 [facility] [address] [facility] [id number] [address] [place] [address] Apr, Unspecified kidney failure N 19 [facility] [address] [facility] [id number] [place] [address] Apr, [facility] [address] [place] [id number] [address] [place] [address] Apr, Hyperparathyroidism, unspeci fied 252.00 [facility] [address] [facility] [id number] [address] [place] [phone] Apr, [facility] [address] [facility] [id number] [address] [place] [phone] Mar, [facility] [address] [place] [id number] [address] [place] [address] Mar, [facility] [address] [place] [id number] [address] [place] [address] Mar, Hyperparathyroidism, unspeci fied 252.00 [facility] [address] [facility] [id number] [address] [place] [phone] Feb, [facility] [address] [facility] [id number] [address] [place] [address] Feb, Otalgia 388.70 [facility] [address] [facility] [id number] [address] [place] [phone] Feb, [facility] [address] [place] [id number] [address] [place] [phone] Feb, [facility] [address] [id number] [address] [place] [address] Jan, [facility] [address] [id number] [address] [place] [phone] Jan, Hyperparathyroidism, unspeci fied 252.00 [facility] [address] [id number] [address] [place] [address] Jan, [facility] [address] [id number] [address] [place] [phone] Jan, Other B-complex deficiencies 266.2 and Hyperparathyroidism, unspecified 252.00 [facility] [address] [id number] [address] [place] [phone] Jan, [facility] [address] [id number] [address] [place] [phone] Jan, [facility] [address] [id number] [address] [place] [phone] Jan, [facility] [address] [id number] [address] [place] [phone] Dec, [facility] [address] [id number] [address] [place] [phone] Dec, [facility] [address] [id number] [address] [place] [phone] Dec, [facility] [address] [id number] [address] [place] [phone] Nov, Routine check-up V70.0 and P re-op exam V72.84 [facility] [address] [id number] [address] [place] [phone] Nov, [facility] [address] [id number] [address] [place] [phone] Nov, [facility] [address] [id number] [address] [place] [phone] October, [facility] [address] [id number] [address] [place] [phone] October, Other B-complex deficiencies 266.2 [facility] [address] [id number] [address] [place] [address], [place] [address] October, [facility] [address] [id number] [address] [place] [phone] 14 Sep, 2014 [facility] [address] [id number] [address] [place] [id number] 13 Sep, 2014 [facility] [address] [id number] [address] [place] [id number] 20 Aug, 2014 [facility] [address] [id number] [address] [place] [id number] 20 Aug, 2014 [facility] [address] [id number] [address] [place] [id number] 17 Aug, 2014 [facility] [address] [id number] [address] [place] [id number] 17 Aug, 2014 [facility] [address] [id number] [address] [place] [id number] Aug, [facility] [address] [id number] [address] [place] [id number] Aug, [facility] [address] [id number] [address] [place] [id number] 18 Jul, 2014 [facility] [address] [id number] [address] [place] [id number] 18 Jul, 2014 [facility] [address] [id number] [address] [place] [id number] 17 Jul, 2014 [facility] [address] [id number] [address] [place] [id number] 17 Jul, 2014 [facility] [address] [id number] [address] [place] [phone] 12 Jul, 2014 [facility] [address] [id number] [address] [place] [id number] Jul, 2014 [facility] [address] [id number] [address] [place] [address], [place] [id number] Jul, 2014 [facility] [address] [id number] [address] [place] [address], [place] [id number] Jul, 2014 [facility] [address] [id number] [address] [place] [address], [place] [id number] Jul, 2014 [facility] [address] [id number] [address] [place] [address], [place] [id number] Jul, 2014 [facility] [address] [id number] [address] [place] [address], [place] [id number] Jul, 2014 [facility] [address] [id number] [address] [place] [address], [place] [id number] Jul, 2014 [facility] [address] [id number] [address] [place] [address], [place] [id number] Jul, 2014 [facility] [address] [id number] [address] [place] [address], [place] [id number] Jul, [facility] [address] [id number] [address] [place] [address], [place] [id number] Jun, [facility] [address] [id number] [address] [place] [address], [place] [id number] Jun, [facility] [address] [id number] [address] [place] [address], [place] [id number] Jun, [facility] [address] [id number] [address] [place] [id number] Jun, [facility] [address] [id number] [address] [place] [id number] Jun, [facility] [address] [id number] [address] [place] [address], [place] [address] Jun, [facility] [address] [id number] [address] [place] [address] Jun, [facility] [address] [id number] [address] [place] [address], [place] [address] Jun, [facility] [address] [id number] [address] [place] [address], [place] [address] Jun, [facility] [address] [id number] [address] [place] [address], [place] [address] Jun, [facility] [address] [id number] [address] [place] [address], [place] [address] Jun, [facility] [address] [id number] [address] [place] [address], [place] [address] Jun, [facility] [address] [id number] [address] [place] [address], [place] [address] Jun, [facility] [address] [id number] [address] [place] [address], [place] [address] Jun, [facility] [address] [id number] [address] [place] [address], [place] [address] May, [facility] [address] [id number] [address] [place] [address], [place] [address] May, [facility] [address] [id number] [address] [place] [address], [place] [address] May, [facility] [address] [id number] [address] [place] [address], [place] [address] May, [facility] [address] [id number] [address] [place] [address], [place] [address] Apr, [facility] [address] [id number] [address] [place] [address], [place] [address] Apr, [facility] [address] [id number] [address] [place] [address], [place] [address] Apr, [facility] [address] [id number] [address] [place] [address], [place] [address] Apr, [facility] [address] [id number] [address] [address] Apr, [facility] [address] [id number] [address] [place] [address], [place] [address] Apr, [facility] [address] [id number] [address] [place] [address], [place] [address] Mar, [facility] [address] [id number] [address] [place] [address], [place] [address] Mar, [facility] [address] [id number] [address] [place] [id number] Mar, [facility] [address] [id number] [address] [place] [address], [place] [address] Mar, [facility] [address] [id number] [address] [place] [address] Mar, [facility] [address] [id number] [address] [place] [address], [place] [address] Mar, [facility] [address] [id number] [address] [place] [address] Mar, [facility] [address] [id number] [address] [place] [id number] Mar, [facility] [address] [id number] [address] [place] [address] Mar, [facility] [address] [id number] [address] [place] [address] Mar, [facility] [address] [id number] [address] [place] [address] Mar, [facility] [address] [id number] [address] [place] [address], [place] [address] Mar, [facility] [address] [id number] [address] [place] [id number] Mar, [facility] [address] [id number] [address] [place] [address] Feb, [facility] [address] [id number] [address] [place] [address] 26 Feb, 2013 [facility] [address] [id number] [address] [place] [address] 23 Feb, 2014 [facility] [address] [id number] [address] [place] [address] 23 Feb, 2014 [facility] [address] [id number] [address] [place] [address], [place] [address] 19 Feb, 2013 [facility] [address] [id number] [address] [place] [address], [place] [address] 19 Feb, 2013 [facility] [address] [id number] [address] [place] [address], [place] [address] 13 Feb, 2014 [facility] [address] [id number] [address] [place] [address], [place] [address] Feb, [facility] [address] [id number] [address] [place] [address], [place] [address] Feb, [facility] [address] [id number] [address] [place] [address], [place] [address] Feb, [facility] [address] [id number] [address] [place] [address], [place] [address] Jan, [facility] [address] [id number] [address] [place] [address], [place] [address] Jan, [facility] [address] [id number] [address] [place] [address], [place] [address] Dec, [facility] [address] [id number] [address] [place] [address], [place] [address] Dec, [facility] [address] [id number] [address] [place] [address], [place] [address] Dec, [facility] [address] [id number] [address] [place] [address], [place] [address] Dec, [facility] [address] [id number] [address] [place] [address], [place] [address] Dec, [facility] [address] [id number] [address] [place] [address], [place] [address] Dec, [facility] [address] [id number] [address] [place] [address], [place] [address] Nov, [facility] [address] [id number] [address] [place] [address], [place] [address] Nov, [facility] [address] [id number] [address] [place] [address], [place] [address] Nov, [facility] [address] [id number] [address] [place] [address], [place] [address] Nov, [facility] [address] [id number] [address] [place] [address], [place] [address] October, [facility] [address] [id number] [address] [place] [address], [place] [address] October, [facility] [address] [id number] [address] [place] [address], [place] [address] October, [facility] [address] [id number] [address] [place] [address], [place] [address] October, [facility] [address] [id number] [address] [place] [address], [place] [address] October, [facility] [address] [id number] [address] [place] [address], [place] [address] October, [facility] [address] [id number] [address] [place] [address], [place] [address] October, [facility] [address] [id number] [address] [place] [address], [place] [address] October, [facility] [address] [id number] [address] [place] [address], [place] [address] October, [facility] [address] [id number] [address] [place] [address], [place] [address] October, [facility] [address] [id number] [address] [place] [address], [place] [address] October, [facility] [address] [id number] [address] [place] [address], [place] [address] October, [facility] [address] [id number] [address] [place] [address], [place] [address] October, [facility] [address] [id number] [address] [place] [address], [place] [address] October, [facility] [address] [id number] [address] [place] [address], [place] [address] October, [facility] [address] [id number] [address] [place] [address], [place] [address] October, [facility] [address] [id number] [address] [place] [address], [place] [address] Sep, [facility] [address] [id number] [address] [place] [address], [place] [address] Sep, [facility] [address] [id number] [address] [place] [address], [place] [address] Sep, [facility] [address] [id number] [address] [place] [address], [place] [address] Sep, [facility] [address] [id number] [address] [place] [address], [place] [address] Sep, [facility] [address] [id number] [address] [place] [address], [place] [address] Sep, [facility] [address] [id number] [address] [place] [address], [place] [address] Aug, [facility] [address] [id number] [address] [place] [address], [place] [address] Aug, [facility] [address] [id number] [address] [place] [address], [place] [address] Aug, [facility] [address] [id number] [address] [place] [address], [place] [address] Aug, [facility] [address] [id number] [address] [place] [address], [place] [address] Aug, [facility] [address] [id number] [address] [place] [address], [place] [address] Aug, [facility] [address] [id number] [address] [place] [address], [place] [address] Jul, [facility] [address] [id number] [address] [place] [address], [place] [address] Jul, [facility] [address] [id number] [address] [place] [address], [place] [address] Jul, [facility] [address] [id number] [address] [place] [address], [place] [address] Jul, [facility] [address] [id number] [address] [place] [address], [place] [address] Jun, [facility] [address] [id number] [address] [place] [address], [place] [address] Jun, [facility] [address] [id number] [address] [place] [address], [place] [address] May, [facility] [address] [id number] [address] [place] [address], [place] [address] May, [facility] [address] [id number] [address] [place] [address], [place] [address] May, [facility] [address] [id number] [address] [place] [address], [place] [address] May, [facility] [address] [id number] [address] [place] [address], [place] [address] May, [facility] [address] [id number] [address] [place] [address], [place] [address] Apr, [facility] [address] [id number] [address] [place] [address], [place] [address] 13 Apr, 2013 [facility] [address] [id number] [address] [address] Apr, [facility] [address] [id number] [address] [place] [address], [place] [address] Apr, [facility] [address] [id number] [address] [place] [address], [place] [address] Apr, [facility] [address] [id number] [address] [place] [address], [place] [address] Apr, [facility] [address] [id number] [address] [place] [address] 15 Mar, 2013 [facility] [address] [id number] [address] [place] [address], [place] [address] 15 Mar, 2013 [facility] [address] [id number] [address] [place] [id number] 14 Mar, 2013 [facility] [address] [id number] [address] [place] [address], [place] [address] 14 Mar, 2013 [facility] [address] [id number] [address] [place] [address] Mar, [facility] [address] [id number] [address] [place] [address] Mar, [facility] [address] [id number] [address] [place] [address] Feb, [facility] [address] [id number] [address] [place] [address], [place] [address] Feb, [facility] [address] [id number] [address] [place] [address] Feb, [facility] [address] [id number] [address] [place] [address], [place] [address] Jan, [facility] [address] [id number] [address] [place] [address], [place] [address] Jan, [facility] [address] [id number] [address] [place] [address] Jan, [facility] [address] [id number] [address] [place] [address], [place] [address] Jan, [facility] [address] [id number] [address] [place] [address], [place] [address] Jan, [facility] [address] [id number] [address] [place] [address], [place] [address] Jan, [facility] [address] [id number] [address] [place] [address], [place] [address] Dec, [facility] [address] [id number] [address] [place] [address], [place] [address] Dec, [facility] [address] [id number] [address] [place] [address], [place] [address] Dec, [facility] [address] [id number] [address] [place] [address], [place] [address] Dec, [facility] [address] [id number] [address] [place] [address], [place] [address] Dec, [facility] [address] [id number] [address] [place] [address], [place] [address] Dec, [facility] [address] [id number] [address] [place] [address], [place] [address] Nov, [facility] [address] [id number] [address] [place] [address], [place] [address] Nov, [facility] [address] [id number] [address] [place] [address], [place] [address] Nov, [facility] [address] [id number] [address] [place] [address], [place] [address] Nov, [facility] [address] [id number] [address] [place] [address], [place] [address] Nov, [facility] [address] [id number] [address] [place] [address], [place] [address] Nov, [facility] [address] [id number] [address] [place] [address], [place] [address] October, [facility] [address] [id number] [address] [place] [address], [place] [address] October, [facility] [address] [id number] [address] [place] [address], [place] [address] October, [facility] [address] [id number] [address] [place] [address], [place] [address] October, [facility] [address] [id number] [address] [place] [address], [place] [address] October, [facility] [address] [id number] [address] [place] [address], [place] [address] Sep, [facility] [address] [id number] [address] [place] [address], [place] [address] Sep, [facility] [address] [id number] [address] [place] [address], [place] [address] Sep, [facility] [address] [id number] [address] [place] [address], [place] [address] Sep, [facility] [address] [id number] [address] [place] [address], [place] [address] Sep, [facility] [address] [id number] [address] [place] [address], [place] [address] Aug, [facility] [address] [id number] [address] [place] [address], [place] [address] Aug, [facility] [address] [id number] [address] [place] [address], [place] [address] Aug, [facility] [address] [id number] [address] [place] [address], [place] [address] Jul, [facility] [address] [id number] [address] [place] [address], [place] [address] Jul, [facility] [address] [id number] [address] [place] [address], [place] [address] Jul, [facility] [address] [id number] [address] [place] [address], [place] [address] 08 Jul, 2012 [facility] [address] [id number] [address] [place] [address], [place] [address] 06 Jul, 2012 [facility] [address] [id number] [address] [place] [address], [place] [address] 05 Jul, 2012 [facility] [address] [id number] [address] [place] [address], [place] [address] Jun, [facility] [address] [id number] [address] [place] [address], [place] [address] Apr, [facility] [address] [id number] [address] [place] [address], [place] [address] Apr, [facility] [address] [id number] [address] [place] [address], [place] [address] Apr, [facility] [address] [id number] [address] [place] [address], [place] [address] Apr, [facility] [address] [id number] [address] [place] [address], [place] [address] Mar, [facility] [address] [id number] [address] [place] [address], [place] [address] Mar, [facility] [address] [id number] [address] [place] [address], [place] [address] Mar, [facility] [address] [id number] [address] [place] [address], [place] [address] Mar, [facility] [address] [id number] [address] [place] [address], [place] [address] Mar, [facility] [address] [id number] [address] [place] [address], [place] [address] Feb, [facility] [address] [id number] [address] [place] [address], [place] [address] Jan, [facility] [address] [id number] [address] [place] [address], [place] [address] Jan, [facility] [address] [id number] [address] [place] [id number] Jan, [facility] [address] [id number] [address] [place] [address] Dec, [facility] [address] [id number] [address] [place] [address] Nov, [facility] [address] [id number] [address] [place] [address] Nov, [facility] [address] [id number] [address] [place] [address] Nov, [facility] [address] [id number] [address] [place] [address] Nov, [facility] [address] [id number] [address] [place] [address] Nov, [facility] [address] [id number] [address] [place] [address] October, [facility] [address] [id number] [address] [place] [id number] October, [facility] [address] [id number] [address] [place] [id number] October, [facility] [address] [id number] [address] [place] [phone] October, [facility] [address] [id number] [address] [place] [phone] October, IMMUNIZATIONS No Known Immunizations SOCIAL HISTORY Never Assessed REASON FOR VISIT Controlled Med Refill PLAN OF CARE VITAL SIGNS MEDICATIONS Medication Instructions Dosage Frequency Start Date End Date Duration S tatus Hydrocodone-Acetaminophen 10-325 MG Orally 3 times a day 1 tablet a s needed 8h Nov, 28 days Active RESULTS No Results PROCEDURES [...]
--- OUTSIDE RECORDS SUMMARY | 2020-01-25 08:03 | XMS REPORT ---
Author Author Velma CORDERO Organization [facility] [place] Address [address] [place] [address] Care Team Providers Care Crm System Administrator Name Role Phone STEPHAN CORDERO Unavailable PROBLEMS Type Condition ICD9-CM Code IWR50-MO Code Onset Dates Condition S tatus SNOMED Code Problem Hypercholesteremia E78.0 Active 1 9367847 Problem Arthritis M19.90 Active 4748971 Problem Hyperparathyroidism E21.3 Active 96085958 Problem Primary insomnia F51.01 Active 397 2004 Problem Myalgia M79.1 Active 74382884 Problem Chronic kidney disease, stage 4 (severe) N18.4 Active 657481905 Problem BPV (benign positional vertigo), bilateral H81.13 Active 048618422 Problem Corns L84 Active 013682528 Problem Mood disorder F39 Active 303806 05 Problem 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 Active 18894649 Problem 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 Active 10456801 ALLERGIES No Information ENCOUNTERS Encounter Location Date Diagnosis [place] [address] [address] [facility] [id number] [address] [place] [id number] Feb, Arthritis M19.90 [place] [id number] [facility] [id number] [address] [place] [address] Jan, Labyrinthitis of left ear H8 3.02 [facility] [place] [address] [facility] [id number] [address] [place] [address] Jan, Arthritis M19.90 [facility] [place] [address] [facility] [id number] [address] [place] [phone] Dec, Labyrinthitis of left ear H8 3.02 [facility] [place] [address] [facility] [id number] [address] [place] [address] Nov, Arthritis M19.90 [facility] [place] [address] [place] [id number] [address] [place] [phone] Nov, Labyrinthitis of left ear H8 3.02 [place] [address] [address] Nov, BMI 40.0-44.9, adult Z68.41 ; Chronic kidney disease, stage 4 (severe) N18.4 and Acute right-sided thoracic back pain M54.6 [place] [address] [address] October, Labyrinthitis of left ear H8 3.02 and Arthritis M19.90 [place] [address] [phone] Sep, BPV (benign positional verti go), bilateral H81.13 ; Dysfunction of left eustachian tube H69.82 and BMI 40.0-44.9, adult Z68.41 [place] [address] [address] Sep, Labyrinthitis of left ear H8 3.02 and Arthritis M19.90 [place] [address] [address] [place] [id number] [address] [place] [phone] Sep, [place] [address] [address] Sep, [place] [address] [address] [place] [id number] [address] [place] [id number] Sep, Chronic kidney disease, stag e 4 (severe) N18.4 [place] [address] [address] [place] [id number] [address] [place] [address] Sep, Chronic kidney disease, stag e 4 (severe) N18.4 [place] [address] [address] [place] [id number] [address] [place] [phone] Aug, Labyrinthitis of left ear H8 3.02 and Arthritis M19.90 [place] [address] [address] [place] [id number] [address] [place] [phone] Aug, [facility] [place] [address] [facility] [id number] [address] [place] [phone] Jul, [facility] [place] [address] [place] [id number] [address] [place] [phone] Jul, Arthritis M19.90 and Labyrin thitis of left ear H83.02 [facility] [place] [address] [place] [id number] [address] [place] [phone] Jul, [facility] [place] [address] [place] [id number] [address] [place] [phone] Jun, [place] [address] [address] [place] [id number] [place] [address] Jun, Arthritis M19.90 and Labyrin thitis of left ear H83.02 [place] [address] [address] Jun, Pre-op evaluation Z01.818 ; BMI 40.0-44.9, adult Z68.41 and Encounter for immunization Z23 [place] [address] [address] [place] [id number] [address] [place] [address] May, Arthritis M19.90 and Labyrin thitis of left ear H83.02 [place] [address] [address] [place] [id number] [address] [place] [phone] Apr, Labyrinthitis of left ear H8 3.02 [place] [address] [address] [place] [id number] [address] [place] [address] Apr, Arthritis M19.90 and Labyrin thitis of left ear H83.02 [place] [address] [address] [place] [id number] [address] [place] [address] 10 Mar, 2017 Arthritis M19.90 and Labyrin thitis of left ear H83.02 [place] [address] [address] [place] [id number] [address] [place] [address] Mar, Chronic kidney disease, stag e 4 (severe) N18.4 [facility] [place] [address] [id number] [address] [place] [address] Feb, Arthritis M19.90 and Labyrin thitis of left ear H83.02 [facility] [place] [address] [facility] [id number] [address] [place] [address] Jan, Labyrinthitis of left ear H8 3.02 and 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 [facility] [place] [address] [id number] [address] [place] [address] Dec, Arthritis M19.90 [facility] [place] [address] [id number] [address] [place] [address] Dec, BPV (benign positional verti go), bilateral H81.13 [facility] [place] [address] [facility] [id number] [address] [place] [address] Dec, [facility] [place] [address] [id number] [address] [place] [id number] Dec, [facility] [place] [address] [facility] [id number] [address] [place] [phone] Dec, [facility] [place] [address] [facility] [id number] [address] [place] [address] Nov, Arthritis M19.90 and Deficie ncy of other specified B group vitamins E53.8 [facility] [place] [address] [id number] [address] [place] [address] Nov, Arthritis M19.90 [facility] [place] [address] [id number] [address] [place] [id number] Nov, Hyperparathyroidism E21.3 [facility] [place] [address] [facility] [id number] [address] [place] [phone] October, [facility] [place] [address] [facility] [id number] [address] [place] [address] October, Hyperparathyroidism E21.3 [facility] [place] [address] [facility] [id number] [address] [place] [address] October, [facility] [place] [address] [facility] [id number] [place] [phone] October, Renal insufficiency N28.9 an d Hyperparathyroidism E21.3 [facility] [place] [address] [facility] [id number] [address] [place] [phone] October, [facility] [place] [address] [place] [id number] [address] [place] [phone] October, Renal insufficiency N28.9 an d Hyperparathyroidism E21.3 [facility] [place] [address] [place] [id number] [place] [address] October, Arthritis M19.90 [facility] [place] [address] [place] [id number] [place] [id number] Sep, [facility] [place] [address] [place] [id number] [place] [address] Sep, Lumbar neuritis M54.16 ; Tho racic abscess J86.9 and 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 [facility] [place] [address] [facility] [id number] [address] [place] [phone] Sep, [facility] [place] [address] [place] [id number] [address] [place] [phone] Aug, Arthritis M19.90 [facility] [place] [address] [place] [id number] [address] [place] [id number] Aug, Hyperparathyroidism E21.3 [facility] [place] [address] [facility] [id number] [address] [place] [address] Aug, Hyperparathyroidism E21.3 [facility] [place] [address] [place] [id number] [address] [place] [id number] Aug, Arthritis M19.90 [facility] [place] [address] [place] [id number] [address] [place] [phone] 24 Feb, 2017 Mass of throat R22.1 [facility] [place] [address] [facility] [id number] [address] [place] [id number] 16 Jul, 2016 [facility] [place] [address] [facility] [id number] [address] [place] [phone] 10 Jul, 2016 Arthritis M19.90 [facility] [place] [address] [facility] [id number] [address] [place] [id number] Jun, Arthritis M19.90 [facility] [place] [address] [facility] [id number] [address] [place] [id number] Jun, [facility] [place] [address] [facility] [id number] [address] [place] [address] Jun, Renal insufficiency N28.9 an d 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 [facility] [place] [address] [facility] [id number] [address] [place] [id number] 05 Jun, 2016 Medicare welcome exam Z00.00 ; Encounter for immunization Z23 ; Arthritis M19.90 ; Medicare annual wellness visit, initial Z00.00 ; Medicare annual wellness visit, subsequent Z00.00 and 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 [facility] [place] [address] [facility] [id number] [address] [place] [address] May, Renal insufficiency N28.9 an d 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 [facility] [place] [address] [facility] [id number] [address] [place] [phone] May, Renal insufficiency N28.9 [facility] [place] [address] [facility] [id number] [address] [place] [id number] May, Renal insufficiency N28.9 [facility] [place] [address] [facility] [id number] [address] [place] [id number] 14 May, 2016 [facility] [place] [address] [facility] [id number] [address] [place] [phone] Apr, [facility] [place] [address] [facility] [id number] [address] [place] [id number] Apr, [facility] [place] [address] [facility] [id number] [address] [place] [id number] 14 Apr, 2016 Mass of throat R22.1 [facility] [place] [address] [facility] [id number] [address] [place] [id number] 10 Apr, 2016 [facility] [place] [address] [facility] [id number] [address] [place] [id number] 10 Apr, 2016 Mass of throat R22.1 [facility] [place] [address] [facility] [id number] [address] [place] [id number] 04 Apr, 2016 Mass of throat R22.1 [facility] [place] [address] [facility] [id number] [address] [place] [phone] Mar, [facility] [place] [address] [facility] [id number] [address] [place] [phone] Mar, [facility] [place] [address] [facility] [id number] [address] [place] [phone] Mar, [facility] [place] [address] [facility] [id number] [address] [place] [phone] 24 Mar, 2016 Parathyroid abnormality E21. 5 and Encounter for immunization Z23 [facility] [place] [address] [facility] [id number] [address] [place] [id number] 17 Mar, 2016 [facility] [place] [address] [facility] [id number] [address] [place] [phone] Mar, [facility] [place] [address] [facility] [id number] [address] [place] [id number] 21 Feb, 2016 Renal insufficiency N28.9 an d Hyperparathyroidism E21.3 [facility] [place] [address] [facility] [id number] [address] [place] [id number] 19 Feb, 2016 [facility] [place] [address] [place] [id number] [address] [place] [id number] 15 Feb, 2016 Renal insufficiency N28.9 an d Hyperparathyroidism E21.3 [facility] [place] [address] [facility] [id number] [address] [place] [id number] 14 Feb, 2016 [facility] [place] [address] [facility] [id number] [address] [place] [phone] Feb, [facility] [place] [address] [facility] [id number] [address] [place] [id number] Feb, [facility] [place] [address] [facility] [id number] [address] [place] [phone] Jan, [facility] [place] [address] [place] [id number] [place] [address] Jan, Arthritis M19.90 ; Lumbago w ith sciatica, right side M54.41 and Other chronic pain G89.29 [facility] [place] [address] [place] [id number] [place] [id number] Jan, [facility] [place] [address] [place] [id number] [place] [address] Dec, Arthritis M19.90 ; Lumbago w ith sciatica, right side M54.41 and Other chronic pain G89.29 [facility] [place] [address] [place] [id number] [address] [place] [id number] Nov, Deficiency of other specifie d B group vitamins E53.8 ; Primary insomnia F51.01 ; Mood disorder F39 and Lumbago with sciatica, right side M54.41 [facility] [place] [address] [place] [id number] [address] [place] [id number] Nov, Hyperparathyroidism E21.3 [facility] [place] [address] [place] [id number] [address] [place] [id number] Nov, Unspecified kidney failure N 19 and Hyperparathyroidism E21.3 [facility] [place] [address] [facility] [id number] [address] [place] [address] October, Hyperparathyroidism E21.3 [facility] [place] [address] [facility] [id number] [address] [place] [phone] October, [facility] [place] [address] [place] [id number] [address] [place] [address] October, Hyperparathyroidism E21.3 [facility] [place] [address] [address] October, Hyperparathyroidism E21.3 [facility] [place] [address] [address] Sep, Hyperparathyroidism E21.3 ; Hypercholesterolemia E78.0 and Arthritis M19.90 [facility] [place] [address] [address] Aug, [facility] [place] [address] [address] Aug, Deficiency of other specifie d B group vitamins E53.8 [facility] [place] [address] [address] Aug, [facility] [place] [address] [address] Jul, Urinary frequency R35.0 [facility] [place] [address] [address] Jul, Urinary frequency R35.0 [facility] [place] [address] [address] Jul, [facility] [place] [address] [address] Jul, [facility] [place] [address] [address] Jun, Pain in left knee M25.562 [facility] [place] [address] [address] Jun, [facility] [place] [address] [address] May, Swelling of left knee joint M25.462 [facility] [place] [address] [address] May, [facility] [place] [address] [place] [id number] [address] [place] [address] May, [facility] [place] [address] [place] [id number] [address] [place] [phone] May, [facility] [place] [address] [place] [id number] [address] [place] [address] Apr, Renal insufficiency N28.9 an d Chronic kidney disease, stage 4 (severe) N18.4 [facility] [place] [address] [place] [id number] [address] [place] [id number] Apr, Unspecified kidney failure N 19 [facility] [place] [address] [place] [id number] [place] [phone] Apr, Unspecified kidney failure N 19 [facility], [place] [id number] [address] [place] [id number] Apr, [facility], [place] [address] [id number] Apr, Hyperparathyroidism, unspeci fied 252.00 [facility], [place] [id number] [address] [place] [id number] Apr, [facility], [place] [id number] [address] [place] [id number] Mar, [facility], [place] [id number] [address] [place] [id number] Mar, [facility], [place] [id number] [address] [place] [phone] Mar, Hyperparathyroidism, unspeci fied 252.00 [facility], [place] [address] [facility] [id number] [address] [place] [id number] Feb, [facility], [place] [id number] [place] [id number] Feb, Otalgia 388.70 [facility], [place] [id number] [address] [place] [id number] Feb, [facility], [place] [address] [id number] [address] [place] [id number] Feb, [facility], [place] [address] [id number] [address] [place] [id number] Jan, [facility], [place] [address] [id number] [address] [place] [id number] Jan, Hyperparathyroidism, unspeci fied 252.00 [facility], [place] [address] [id number] [address] [place] [id number] Jan, [facility], [place] [address] [id number] [address] [place] [id number] Jan, Other B-complex deficiencies 266.2 and Hyperparathyroidism, unspecified 252.00 [facility], [place] [address] [id number] [address] [place] [id number] Jan, [facility], [place] [address] [id number] [address] [place] [id number] Jan, [facility], [place] [address] [id number] [address] [place] [address] Jan, [facility] [place] [address] [id number] [address] [place] [address] Dec, [facility] [place] [address] [facility] [id number] [address] [place] [address] Dec, [facility] [place] [address] [facility] [id number] [address] [place] [address] Dec, [facility] [place] [address] [facility] [id number] [address] [place] [address] Nov, Routine check-up V70.0 and P re-op exam V72.84 [facility] [place] [address] [id number] [address] [place] [address] Nov, [facility] [place] [address] [id number] [address] [place] [address] Nov, [facility] [place] [address] [id number] [address] [place] [address] October, [facility] [address] [id number] [address] [place] [address] October, Other B-complex deficiencies 266.2 [facility] [address] [id number] [address] [place] [address], [place] [address] October, [facility] [address] [id number] [address] [place] [address], [place] [address] 14 Sep, 2014 [facility] [address] [id number] [address] [place] [address], [place] [address] Sep, [facility] [address] [id number] [address] [place] [address], [place] [address] 20 Aug, 2014 [facility] [address] [id number] [address] [place] [address] Aug, [facility] [address] [id number] [address] [place] [address] 17 Aug, 2014 [facility] [address] [id number] [address] [place] [address] Aug, [facility] [address] [id number] [address] [place] [address] Aug, [facility] [address] [id number] [address] [place] [address] Aug, [facility] [address] [id number] [address] [place] [address] 18 Jul, 2014 [facility] [address] [id number] [address] [place] [address], [place] [address] Jul, [facility] [address] [id number] [address] [place] [address] 17 Jul, 2014 [facility] [address] [id number] [address] [place] [address] 17 Jul, 2014 [facility] [address] [id number] [address] [place] [address] Jul, 2014 [facility] [address] [id number] [address] [place] [address], [place] [address] Jul, 2014 [facility] [address] [id number] [address] [place] [address], [place] [address] Jul, 2014 [facility] [address] [id number] [address] [place] [address], [place] [address] Jul, 2014 [facility] [place] [facility] [address] [id number] [address] [place] [address], [place] [address] Jul, 2014 [facility] [address] [id number] [address] [place] [address], [place] [address] Jul, 2014 [facility] [address] [id number] [address] [place] [address], [place] [address] Jul, 2014 [facility] [address] [id number] [address] [place] [address], [place] [address] Jul, 2014 [facility] [address] [id number] [address] [place] [address], [place] [address] Jul, [facility] [address] [id number] [address] [place] [address], [place] [address] Jul, [facility] [address] [id number] [address] [place] [address], [place] [address] Jun, [facility] [place] [facility] [address] [id number] [address] [place] [address], [place] [address] Jun, [facility] [address] [id number] [address] [place] [address], [place] [address] Jun, [facility] [place] [facility] [address] [id number] [address] [place] [address], [place] [address] Jun, [facility] [place] [facility] [address] [id number] [address] [place] [address], [place] [address] Jun, [facility] [place] [facility] [address] [id number] [address] [place] [address], [place] [address] Jun, [facility] [address] [id number] [address] [place] [address], [place] [address] Jun, [facility] [address] [id number] [address] [place] [address], [place] [address] Jun, [facility] [address] [id number] [address] [place] [address], [place] [address] Jun, [facility] [address] [id number] [address] [place] [address], [place] [address] Jun, [facility] [address] [id number] [address] [place] [address], [place] [address] Jun, [facility] [address] [id number] [address] [place] [address], [place] [address] Jun, [facility] [address] [id number] [address] [place] [address], [place] [address] Jun, [facility] [address] [id number] [address] [place] [address], [place] [address] Jun, [facility] [address] [id number] [address] [place] [address], [place] [address] May, [facility] [address] [id number] [address] [place] [address], [place] [address] May, [facility] [address] [id number] [address] [place] [address], [place] [address] May, [facility] [address] [id number] [address] [place] [address], [place] [address] May, [facility] [place] [facility] [address] [id number] [address] [place] [address], [place] [address] Apr, [facility] [place] [facility] [address] [id number] [address] [place] [address], [place] [address] Apr, [facility] [place] [facility] [address] [id number] [address] [place] [address], [place] [address] Apr, [facility] [address] [id number] [address] [place] [address] Apr, [facility] [place] [facility] [address] [id number] [address] [place] [address], [place] [address] Apr, [facility] [place] [facility] [address] [id number] [address] [place] [address] Apr, [facility] [place] [facility] [address] [id number] [address] [place] [address], [place] [address] Mar, [facility] [place] [facility] [address] [id number] [address] [place] [address], [place] [address] Mar, [facility] [place] [facility] [address] [id number] [address] [place] [address], [place] [address] Mar, [facility] [place] [facility] [address] [id number] [address] [place] [address], [place] [address] Mar, [facility] [address] [id number] [address] [place] [address] Mar, [facility] [place] [facility] [address] [id number] [address] [place] [address] Mar, [facility] [place] [facility] [address] [id number] [address] [place] [address] Mar, [facility] [place] [facility] [address] [id number] [address] [place] [address] Mar, [facility] [place] [facility] [address] [id number] [address] [place] [address] Mar, [facility] [place] [facility] [address] [id number] [address] [place] [address] Mar, [facility] [place] [facility] [address] [id number] [address] [place] [address] Mar, [facility] [place] [facility] [address] [id number] [address] [place] [address] Mar, [facility] [place] [facility] [address] [id number] [address] [place] [address] Mar, [facility] [place] [facility] [address] [id number] [facility] [place] [address] 26 Feb, 2013 [facility] [place] [facility] [address] [id number] [facility] [place] [address] 26 Feb, 2013 [facility] [place] [facility] [address] [id number] [facility] [place] [address] 23 Feb, 2013 [facility] [place] [facility] [address] [id number] [facility] [place] [address] 23 Feb, 2013 [facility] [place] [facility] [address] [id number] [facility] [place] [address] 19 Feb, 2013 [facility] [place] [facility] [address] [id number] [address] [place] [address], [place] [address] 19 Feb, 2013 [facility] [address] [id number] [address] [place] [address], [place] [address] 13 Feb, 2013 [facility] [place] [facility] [address] [id number] [address] [place] [address], [place] [address] 13 Feb, 2013 [facility] [address] [id number] [address] [place] [address], [place] [address] 12 Feb, 2014 [facility] [place] [facility] [address] [id number] [address] [place] [address], [place] [address] Feb, [facility] [address] [id number] [address] [place] [address], [place] [address] 15 Jan, 2014 [facility] [place] [facility] [address] [id number] [address] [place] [address], [place] [address] Jan, [facility] [place] [facility] [address] [id number] [address] [place] [address], [place] [address] Dec, [facility] [place] [facility] [address] [id number] [address] [place] [address], [place] [address] Dec, [facility] [place] [facility] [address] [id number] [address] [place] [address], [place] [address] Dec, [facility] [place] [facility] [address] [id number] [address] [place] [address], [place] [address] Dec, [facility] [address] [id number] [facility] [place] [address] Dec, [facility] [address] [id number] [facility] [place] [address] Dec, [facility] [address] [id number] [facility] [place] [address] Nov, [facility] [place] [facility] [address] [id number] [address] [place] [address], [place] [address] Nov, [facility] [address] [id number] [facility] [place] [address] Nov, [facility] [address] [id number] [address] [place] [address], [place] [address] Nov, [facility] [address] [id number] [address] [place] [address], [place] [address] October, [facility] [address] [id number] [address] [place] [address], [place] [address] October, [facility] [address] [id number] [address] [place] [address], [place] [address] October, [facility] [address] [id number] [address] [place] [address], [place] [address] October, [facility] [address] [id number] [address] [place] [address], [place] [address] October, [facility] [place] [facility] [address] [id number] [address] [place] [address], [place] [address] October, [facility] [place] [facility] [address] [id number] [address] [place] [address], [place] [address] October, [facility] [place] [facility] [address] [id number] [address] [place] [address], [place] [address] October, [facility] [place] [facility] [address] [id number] [address] [place] [address], [place] [address] October, [facility] [address] [id number] [address] [address] October, [facility] [address] [id number] [address] [place] [address], [place] [address] October, [facility] [address] [id number] [address] [place] [address], [place] [address] October, [facility] [address] [id number] [address] [place] [address], [place] [address] October, [facility] [address] [id number] [address] [place] [address], [place] [address] October, [facility] [address] [id number] [address] [place] [address], [place] [address] October, [facility] [address] [id number] [address] [place] [address], [place] [address] October, [facility] [address] [id number] [address] [place] [address], [place] [address] Sep, [facility] [address] [id number] [address] [place] [address], [place] [address] Sep, [facility] [address] [id number] [address] [place] [address], [place] [address] Sep, [facility] [address] [id number] [address] [place] [address], [place] [address] Sep, [facility] [address] [id number] [address] [place] [address], [place] [address] Sep, [facility] [address] [id number] [address] [place] [address], [place] [address] Sep, [facility] [place] [facility] [address] [id number] [address] [place] [address], [place] [address] Aug, [facility] [address] [id number] [address] [place] [address], [place] [address] Aug, [facility] [address] [id number] [address] [place] [address], [place] [address] Aug, [facility] [address] [id number] [address] [place] [address], [place] [address] Aug, [facility] [address] [id number] [address] [place] [address], [place] [address] Aug, [facility] [address] [id number] [address] [place] [address], [place] [address] Aug, [facility] [address] [id number] [address] [place] [address], [place] [address] Jul, [facility] [address] [id number] [address] [place] [address], [place] [address] Jul, [facility] [address] [id number] [address] [place] [address], [place] [address] Jul, [facility] [address] [id number] [address] [place] [address], [place] [address] Jul, [facility] [address] [id number] [address] [place] [address], [place] [address] Jun, [facility] [address] [id number] [address] [place] [address], [place] [address] Jun, [facility] [address] [id number] [address] [place] [address], [place] [address] May, [facility] [address] [id number] [address] [place] [address], [place] [address] May, [facility] [address] [id number] [address] [place] [address] May, [facility] [address] [id number] [address] [place] [address], [place] [address] May, [facility] [address] [id number] [address] [place] [address], [place] [address] May, [facility] [address] [id number] [address] [place] [address], [place] [address] 13 Apr, 2013 [facility] [address] [id number] [address] [place] [address] Apr, [facility] [address] [id number] [address] [place] [address], [place] [address] Apr, [facility] [address] [id number] [address] [place] [address] Apr, [facility] [address] [id number] [address] [place] [address], [place] [address] Apr, [facility] [address] [id number] [address] [place] [address], [place] [address] 04 Apr, 2013 [facility] [address] [id number] [address] [place] [address], [place] [address] 15 Mar, 2013 [facility] [address] [id number] [address] [place] [address], [place] [address] 15 Mar, 2013 [facility] [address] [id number] [address] [place] [address] 14 Mar, 2013 [facility] [address] [id number] [address] [place] [address], [place] [address] 14 Mar, 2013 [facility] [address] [id number] [address] [place] [address] Mar, [facility] [address] [id number] [address] [place] [address] Mar, [facility] [address] [id number] [address] [place] [address], [place] [address] 23 Feb, 2013 [facility] [place] [facility] [address] [id number] [address] [place] [address] 19 Feb, 2013 [facility] [address] [id number] [address] [place] [address], [place] [address] 04 Feb, 2013 [facility] [place] [facility] [address] [id number] [address] [place] [address] Jan, [facility] [address] [id number] [address] [place] [address] Jan, [facility] [place] [facility] [address] [id number] [address] [place] [address], [place] [address] Jan, [facility] [address] [id number] [address] [place] [address], [place] [address] Jan, [facility] [address] [id number] [address] [place] [address], [place] [address] Jan, [facility] [address] [id number] [address] [place] [address], [place] [address] Jan, [facility] [address] [id number] [address] [place] [address], [place] [address] Dec, [facility] [address] [id number] [address] [place] [address], [place] [address] Dec, [facility] [address] [id number] [address] [place] [address], [place] [address] Dec, [facility] [address] [id number] [address] [place] [address], [place] [address] Dec, [facility] [address] [id number] [address] [place] [address], [place] [address] Dec, [facility] [address] [id number] [address] [place] [address], [place] [address] Dec, [facility] [address] [id number] [address] [place] [address], [place] [address] Nov, [facility] [address] [id number] [address] [place] [address], [place] [address] Nov, [facility] [address] [id number] [address] [place] [address], [place] [address] 18 Nov, 2012 [facility] [place] [facility] [address] [id number] [address] [place] [address], [place] [address] Nov, [facility] [address] [id number] [address] [place] [address], [place] [address] Nov, [facility] [address] [id number] [address] [place] [address] [address] Nov, [facility] [address] [id number] [address] [place] [address], [place] [address] October, [facility] [address] [id number] [address] [place] [address], [place] [address] October, [facility] [address] [id number] [address] [place] [address], [place] [address] October, [facility] [address] [id number] [address] [place] [address], [place] [address] October, [facility] [address] [id number] [address] [place] [address], [place] [address] October, [facility] [address] [id number] [address] [place] [address], [place] [address] Sep, [facility] [address] [id number] [address] [place] [address], [place] [address] Sep, [facility] [address] [id number] [address] [place] [address], [place] [address] Sep, [facility] [address] [id number] [address] [place] [address], [place] [address] Sep, [facility] [address] [id number] [address] [place] [address], [place] [address] Sep, [facility] [address] [id number] [address] [place] [address], [place] [address] Aug, [facility] [address] [id number] [address] [place] [address], [place] [address] Aug, [facility] [address] [id number] [address] [place] [address], [place] [address] Aug, [facility] [address] [id number] [address] [place] [address], [place] [address] Jul, [facility] [address] [id number] [address] [place] [address], [place] [address] Jul, [facility] [address] [id number] [address] [place] [address], [place] [address] 11 Jul, 2012 [facility] [address] [id number] [address] [place] [address], [place] [address] 08 Jul, 2012 [facility] [address] [id number] [address] [place] [address], [place] [address] 06 Jul, 2012 [facility] [address] [id number] [address] [place] [address], [place] [address] 05 Jul, 2012 [facility] [address] [id number] [address] [place] [address], [place] [address] Jun, [facility] [address] [id number] [address] [place] [address], [place] [address] Apr, [facility] [address] [id number] [address] [place] [address], [place] [address] Apr, [facility] [address] [id number] [address] [place] [address], [place] [address] Apr, [facility] [address] [id number] [address] [place] [address], [place] [address] Apr, [facility] [address] [id number] [address] [place] [address], [place] [address] Mar, [facility] [address] [id number] [address] [place] [address], [place] [address] Mar, [facility] [address] [id number] [address] [place] [address], [place] [address] Mar, [facility] [address] [id number] [address] [place] [address], [place] [address] Mar, [facility] [address] [id number] [address] [place] [address], [place] [address] Mar, [facility] [address] [id number] [address] [place] [address], [place] [address] Feb, [facility] [address] [id number] [address] [place] [address], [place] [address] Jan, [facility] [place] [address] [id number] [address] [place] [address] Jan, [facility] [place] [address] [id number] [address] [place] [address] Jan, [facility] [place] [address] [id number] [address] [place] [address] Dec, [facility] [place] [address] [id number] [address] [place] [address] Nov, [facility] [place] [address] [id number] [address] [place] [address] Nov, [facility] [place] [address] [id number] [address] [place] [address] Nov, [facility] [place] [address] [id number] [address] [place] [address] Nov, [facility] [place] [address] [id number] [address] [place] [address] Nov, [facility] [place] [address] [id number] [address] [place] [address] October, [facility] [place] [address] [id number] [address] [place] [address] October, [facility] [place] [address] [id number] [address] [place] [address] October, [facility] [place] [address] [id number] [address] [place] [address] October, [facility] [place] [address] [id number] [address] [place] [address] October, IMMUNIZATIONS No Known Immunizations SOCIAL HISTORY [...]
[2020-01-25] MEDS ORDERED: proPOfol 200 MG/20 ML (DIPRIVAN) VIAL IV ONE (08:04)
[2020-01-25] MEDS ORDERED: MIDAZOLAM 2 MG/2 ML (VERSED) VIAL ONE (08:04)
[2020-01-25] MEDS ORDERED: ONDANSETRON 4 MG/2 ML (SDV) Z0FRAN ONE ×2 (08:04→08:11)
[2020-01-25] MEDS ORDERED: LIDOCAINE PF 2% 5 ML (XYLOCAINE) VIAL ONE (08:04)
--- OUTSIDE RECORDS SUMMARY | 2020-01-25 08:04 | XMS REPORT ---
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 Phone STEPHAN CORDERO Unavailable PROBLEMS Type Condition ICD9-CM Code [id number] Code Onset Dates Condition S tatus SNOMED Code Problem Hypercholesteremia E78.0 Active 1 8343945 Problem Arthritis M19.90 Active 4992791 Problem Hyperparathyroidism E21.3 Active 88416500 Problem Primary insomnia F51.01 Active 397 2004 Problem Myalgia M79.1 Active 56472871 Problem Chronic kidney disease, stage 4 (severe) N18.4 Active 786560564 Problem BPV (benign positional vertigo), bilateral H81.13 Active 560545923 Problem Corns L84 Active 417557037 Problem Mood disorder F39 Active 543858 05 Problem 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 Active 12590588 Problem 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 Active 33451255 ALLERGIES No Information ENCOUNTERS Encounter Location Date Diagnosis [facility] [address] [facility] [id number] [address] [place] [phone] Jan, Labyrinthitis of left ear H8 3.02 [facility] [address] [facility] [id number] [address] [place] [id number] Jan, Arthritis M19.90 [facility] [address] [facility] [id number] [address] [place] [phone] Dec, Labyrinthitis of left ear H8 3.02 [facility] [address] [facility] [id number] [address] [place] [phone] Nov, Arthritis M19.90 [facility] [address] [facility] [id number] [address] [place] [phone] Nov, Labyrinthitis of left ear H8 3.02 [facility] [address] [id number] [address] [place] [phone] Nov, BMI 40.0-44.9, adult Z68.41 ; Chronic kidney disease, stage 4 (severe) N18.4 and Acute right-sided thoracic back pain M54.6 [facility] [address] [facility] [id number] [address] [place] [id number] October, Labyrinthitis of left ear H8 3.02 and Arthritis M19.90 [facility] [address] [id number] [address] [place] [id number] Sep, BPV (benign positional verti go), bilateral H81.13 ; Dysfunction of left eustachian tube H69.82 and BMI 40.0-44.9, adult Z68.41 [place] [address] [facility] [id number] [address] [place] [id number] Sep, Labyrinthitis of left ear H8 3.02 and Arthritis M19.90 [place] [address] [facility] [id number] [address] [place] [id number] Sep, [place] [address] [facility] [id number] [address] [place] [phone] Sep, [place] [address] [facility] [id number] [address] [place] [id number] Sep, Chronic kidney disease, stag e 4 (severe) N18.4 [facility] [address] [id number] [address] [place] [phone] Sep, Chronic kidney disease, stag e 4 (severe) N18.4 [facility] [address] [id number] [address] [place] [id number] Aug, Labyrinthitis of left ear H8 3.02 and Arthritis M19.90 [facility] [address] [facility] [id number] [address] [place] [id number] Aug, [facility] [address] [facility] [id number] [address] [place] [id number] Jul, [facility] [address] [id number] [address] [place] [id number] Jul, Arthritis M19.90 and Labyrin thitis of left ear H83.02 [facility] [address] [facility] [id number] [address] [place] [id number] Jul, [facility] [address] [facility] [id number] [address] [place] [id number] Jun, [place] [address] [facility] [id number] [address] [place] [phone] Jun, Arthritis M19.90 and Labyrin thitis of left ear H83.02 [place] [address] [place] [id number] [address] [place] [id number] Jun, Pre-op evaluation Z01.818 ; BMI 40.0-44.9, adult Z68.41 and Encounter for immunization Z23 [place] [address] [facility] [id number] [address] [place] [phone] May, Arthritis M19.90 and Labyrin thitis of left ear H83.02 [place] [address] [place] [id number] [address] [place] [id number] Apr, Labyrinthitis of left ear H8 3.02 [place] [address] [place] [id number] [address] [place] [phone] Apr, Arthritis M19.90 and Labyrin thitis of left ear H83.02 [place] [address] [facility] [id number] [address] [place] [address] Mar, Arthritis M19.90 and Labyrin thitis of left ear H83.02 [facility] [address] [facility] [id number] [address] [place] [phone] 05 Mar, 2017 Chronic kidney disease, stag e 4 (severe) N18.4 [place] [address] [facility] [id number] [address] [place] [id number] Feb, Arthritis M19.90 and Labyrin thitis of left ear H83.02 [facility] [address] [facility] [id number] [address] [place] [id number] Jan, Labyrinthitis of left ear H8 3.02 and 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 [facility] [address] [place] [id number] [address] [place] [phone] Dec, Arthritis M19.90 [facility] [address] [facility] [id number] [address] [place] [phone] Dec, BPV (benign positional verti go), bilateral H81.13 [place] [address] [place] [id number] [address] [place] [phone] Dec, [place] [address] [place] [id number] [address] [place] [phone] Dec, [facility] [address] [place] [id number] [address] [place] [phone] Dec, [facility] [address] [facility] [id number] [address] [place] [phone] Nov, Arthritis M19.90 and Deficie ncy of other specified B group vitamins E53.8 [place] [address] [facility] [id number] [address] [place] [phone] Nov, Arthritis M19.90 [facility] [address] [facility] [id number] [address] [place] [phone] Nov, Hyperparathyroidism E21.3 [facility] [address] [facility] [id number] [address] [place] [phone] October, [place] [address] [place] [id number] [address] [place] [phone] October, Hyperparathyroidism E21.3 [facility] [address] [place] [id number] [address] [place] [phone] October, [place] [address] [facility] [id number] [address] [place] [id number] October, Renal insufficiency N28.9 an d Hyperparathyroidism E21.3 [facility] [address] [facility] [id number] [address] [place] [phone] October, [facility] [address] [facility] [id number] [address] [place] [phone] October, Renal insufficiency N28.9 an d Hyperparathyroidism E21.3 [facility] [address] [facility] [id number] [address] [place] [address] October, Arthritis M19.90 [facility] [address] [facility] [id number] [address] [place] [phone] Sep, [facility] [address] [facility] [id number] [address] [place] [phone] Sep, Lumbar neuritis M54.16 ; Tho racic abscess J86.9 and 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 [facility] [address] [facility] [id number] [address] [place] [id number] Sep, [facility] [address] [facility] [id number] [address] [place] [id number] Aug, Arthritis M19.90 [facility] [address] [facility] [id number] [address] [place] [phone] Aug, Hyperparathyroidism E21.3 [facility] [address] [facility] [id number] [address] [place] [id number] Aug, Hyperparathyroidism E21.3 [facility] [address] [facility] [id number] [address] [place] [phone] Aug, Arthritis M19.90 [facility] [address] [facility] [id number] [address] [place] [phone] Jul, Mass of throat R22.1 [facility] [address] [facility] [id number] [address] [place] [phone] Jul, [facility] [address] [facility] [id number] [address] [place] [id number] 10 Jul, 2016 Arthritis M19.90 [facility] [address] [facility] [id number] [address] [place] [phone] Jun, Arthritis M19.90 [facility] [address] [facility] [id number] [address] [place] [phone] Jun, [facility] [address] [facility] [id number] [address] [place] [phone] Jun, Renal insufficiency N28.9 an d Parathyroid 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 [facility] [address] [facility] [id number] [address] [place] [id number] 05 Jun, 2016 Encounter for immunization Z 23 ; Medicare welcome exam Z00.00 ; Arthritis M19.90 ; Medicare annual wellness visit, initial Z00.00 ; Medicare annual wellness visit, subsequent Z00.00 and 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 [facility] [address] [facility] [id number] [address] [place] [phone] May, Renal insufficiency N28.9 an d Parathyroid 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 [facility] [address] [facility] [id number] [address] [place] [phone] 19 May, 2016 Renal insufficiency N28.9 [facility] [address] [facility] [id number] [address] [place] [phone] May, Renal insufficiency N28.9 [facility] [address] [facility] [id number] [address] [place] [id number] 14 May, 2016 [facility] [address] [facility] [id number] [address] [place] [phone] Apr, [facility] [address] [place] [id number] [address] [place] [id number] Apr, [facility] [address] [facility] [id number] [address] [place] [phone] Apr, Mass of throat R22.1 [place] [address] [id number] [address] [place] [id number] 10 Apr, 2016 [facility] [address] [id number] [address] [place] [phone] 10 Apr, 2016 Mass of throat R22.1 [facility] [address] [id number] [address] [place] [id number] 04 Apr, 2016 Mass of throat R22.1 [facility] [address] [id number] [address] [place] [phone] Mar, [facility] [address] [id number] [address] [place] [phone] Mar, [facility] [address] [id number] [address] [place] [phone] Mar, [facility] [address] [id number] [address] [place] [phone] 24 Mar, 2016 Parathyroid abnormality E21. 5 and Encounter for immunization Z23 [facility] [address] [id number] [address] [place] [phone] 17 Mar, 2016 [facility] [address] [id number] [address] [place] [phone] 11 Mar, 2016 [facility] [address] [facility] [id number] [address] [place] [id number] 21 Feb, 2016 Renal insufficiency N28.9 an d Hyperparathyroidism E21.3 [facility] [address] [id number] [address] [place] [phone] 19 Feb, 2016 [facility] [address] [id number] [address] [place] [phone] 15 Feb, 2016 Renal insufficiency N28.9 an d Hyperparathyroidism E21.3 [facility] [address] [id number] [address] [place] [phone] 14 Feb, 2016 [facility] [address] [facility] [id number] [address] [place] [phone] 12 Feb, 2016 [facility] [address] [facility] [id number] [address] [place] [phone] Feb, [facility] [address] [facility] [id number] [address] [place] [phone] Jan, [facility] [address] [facility] [id number] [address] [place] [phone] Jan, Arthritis M19.90 ; Lumbago w ith sciatica, right side M54.41 and Other chronic pain G89.29 [facility] [address] [facility] [id number] [address] [place] [phone] Jan, [facility] [address] [place] [id number] [address] [place] [id number] Dec, Arthritis M19.90 ; Lumbago w ith sciatica, right side M54.41 and Other chronic pain G89.29 [place] [address] [place] [id number] [address] [place] [phone] Nov, Deficiency of other specifie d B group vitamins E53.8 ; Primary insomnia F51.01 ; Mood disorder F39 and Lumbago with sciatica, right side M54.41 [place] [address] [facility] [id number] [address] [place] [phone] Nov, Hyperparathyroidism E21.3 [place] [address] [place] [id number] [address] [place] [phone] Nov, Unspecified kidney failure N 19 and Hyperparathyroidism E21.3 [place] [address] [place] [id number] [address] [place] [phone] October, Hyperparathyroidism E21.3 [place] [address] [place] [id number] [address] [place] [phone] October, [facility] [address] [place] [id number] [address] [place] [id number] October, Hyperparathyroidism E21.3 [place] [address] [place] [id number] [address] [place] [phone] October, Hyperparathyroidism E21.3 [facility] [address] [facility] [id number] [address] [place] [phone] Sep, Hyperparathyroidism E21.3 ; Hypercholesterolemia E78.0 and Arthritis M19.90 [facility] [address] [facility] [id number] [address] [place] [phone] Aug, [facility] [address] [address] Aug, Deficiency of other specifie d B group vitamins E53.8 [facility] [address] [facility] [id number] [address] [place] [phone] Aug, [facility] [address] [place] [id number] [address] [place] [phone] Jul, Urinary frequency R35.0 [facility] [address] [place] [id number] [address] [place] [phone] Jul, Urinary frequency R35.0 [facility] [address] [facility] [id number] [address] [place] [id number] Jul, [facility] [address] [place] [id number] [address] [place] [address] Jul, [facility] [address] [place] [id number] [address] [place] [phone] Jun, Pain in left knee M25.562 [facility] [address] [facility] [id number] [address] [place] [address] Jun, [facility] [address] [place] [id number] [address] [place] [address] May, Swelling of left knee joint M25.462 [facility] [address] [place] [id number] [address] [place] [phone] May, [facility] [address] [place] [id number] [address] [place] [phone] May, [facility] [address] [place] [id number] [place] [address] May, [facility] [address] [facility] [id number] [address] [place] [phone] Apr, Renal insufficiency N28.9 an d Chronic kidney disease, stage 4 (severe) N18.4 [facility] [address] [facility] [id number] [address] [place] [id number] Apr, Unspecified kidney failure N 19 [facility] [address] [facility] [id number] [address] [place] [phone] Apr, Unspecified kidney failure N 19 [facility] [address] [facility] [id number] [place] [address] Apr, [facility] [address] [place] [id number] [address] [place] [phone] Apr, Hyperparathyroidism, unspeci fied 252.00 [facility] [address] [facility] [id number] [address] [place] [id number] Apr, [facility] [address] [facility] [id number] [address] [place] [phone] Mar, [facility] [address] [place] [id number] [address] [place] [phone] Mar, [facility] [address] [place] [id number] [address] [place] [id number] Mar, Hyperparathyroidism, unspeci fied 252.00 [facility] [address] [facility] [id number] [address] [place] [phone] Feb, [facility] [address] [facility] [id number] [address] [place] [phone] Feb, Otalgia 388.70 [facility] [address] [facility] [id number] [address] [place] [phone] Feb, [facility] [address] [place] [id number] [address] [place] [id number] Feb, [facility] [address] [id number] [address] [place] [phone] Jan, [facility] [address] [id number] [address] [place] [phone] Jan, Hyperparathyroidism, unspeci fied 252.00 [facility] [address] [id number] [address] [place] [phone] Jan, [facility] [address] [id number] [address] [place] [phone] Jan, Other B-complex deficiencies 266.2 and Hyperparathyroidism, unspecified 252.00 [facility] [address] [id number] [address] [place] [phone] Jan, [facility] [address] [id number] [address] [place] [phone] Jan, [facility] [address] [id number] [address] [place] [phone] Jan, [facility] [address] [id number] [address] [place] [id number] Dec, [facility] [address] [id number] [address] [place] [phone] Dec, [facility] [address] [id number] [address] [place] [id number] Dec, [facility] [address] [id number] [address] [place] [phone] Nov, Routine check-up V70.0 and P re-op exam V72.84 [facility] [address] [id number] [address] [place] [phone] Nov, [facility] [address] [id number] [address] [place] [phone] Nov, [facility] [address] [id number] [address] [place] [phone] October, [facility] [address] [id number] [address] [place] [phone] October, Other B-complex deficiencies 266.2 [facility] [address] [id number] [address] [place] [address], [place] [address] October, [facility] [address] [id number] [address] [place] [id number] 14 Sep, 2014 [facility] [address] [id number] [address] [place] [phone] 13 Sep, 2014 [facility] [address] [id number] [address] [place] [id number] 20 Aug, 2014 [facility] [address] [id number] [address] [place] [phone] 20 Aug, 2014 [facility] [address] [id number] [address] [place] [phone] 17 Aug, 2014 [facility] [address] [id number] [address] [place] [id number] 17 Aug, 2014 [facility] [address] [id number] [address] [place] [id number] Aug, [facility] [address] [id number] [address] [place] [phone] Aug, [facility] [address] [id number] [address] [place] [id number] 18 Jul, 2014 [facility] [address] [id number] [address] [place] [id number] 18 Jul, 2014 [facility] [address] [id number] [address] [place] [id number] 17 Jul, 2014 [facility] [address] [id number] [address] [place] [id number] 17 Jul, 2014 [facility] [address] [id number] [address] [place] [id number] 12 Jul, 2014 [facility] [address] [id number] [address] [place] [phone] Jul, 2014 [facility] [address] [id number] [address] [place] [address], [place] [id number] Jul, 2014 [facility] [address] [id number] [address] [place] [address], [place] [id number] Jul, 2014 [facility] [address] [id number] [address] [place] [address], [place] [id number] Jul, 2014 [facility] [address] [id number] [address] [place] [address], [place] [id number] Jul, 2014 [facility] [address] [id number] [address] [place] [address], [place] [id number] Jul, 2014 [facility] [address] [id number] [address] [place] [address], [place] [id number] Jul, 2014 [facility] [address] [id number] [address] [place] [address], [place] [id number] Jul, 2014 [facility] [address] [id number] [address] [place] [address], [place] [id number] Jul, [facility] [address] [id number] [address] [place] [address], [place] [id number] Jun, [facility] [address] [id number] [address] [place] [address], [place] [id number] Jun, [facility] [address] [id number] [address] [place] [address], [place] [id number] Jun, [facility] [address] [id number] [address] [place] [phone] Jun, [facility] [address] [id number] [address] [place] [id number] Jun, [facility] [address] [id number] [address] [place] [address], [place] [id number] Jun, [facility] [address] [id number] [address] [place] [phone] Jun, [facility] [address] [id number] [address] [place] [address], [place] [id number] Jun, [facility] [address] [id number] [address] [place] [address], [place] [id number] Jun, [facility] [address] [id number] [address] [place] [address], [place] [id number] Jun, [facility] [facility] [address] [id number] [address] [place] [address], [place] [address] Jun, [facility] [address] [id number] [address] [place] [address], [place] [address] Jun, [facility] [address] [id number] [address] [place] [address], [place] [address] Jun, [facility] [address] [id number] [address] [place] [address], [place] [address] Jun, [facility] [address] [id number] [address] [place] [address], [place] [address] May, [facility] [address] [id number] [address] [place] [address], [place] [address] May, [facility] [address] [id number] [address] [place] [address], [place] [address] May, [facility] [address] [id number] [address] [place] [address], [place] [address] May, [facility] [address] [id number] [address] [place] [address], [place] [address] Apr, [facility] [address] [id number] [address] [place] [address], [place] [address] Apr, [facility] [address] [id number] [address] [place] [address], [place] [address] Apr, [facility] [address] [id number] [address] [place] [address], [place] [address] Apr, [facility] [address] [id number] [address] [address] Apr, [facility] [address] [id number] [address] [place] [address], [place] [address] Apr, [facility] [address] [id number] [address] [place] [address], [place] [address] Mar, [facility] [address] [id number] [address] [place] [address], [place] [address] Mar, [facility] [address] [id number] [address] [place] [address] Mar, [facility] [address] [id number] [address] [place] [address], [place] [address] Mar, [facility] [address] [id number] [address] [place] [address] Mar, [facility] [address] [id number] [address] [place] [address], [place] [address] Mar, [facility] [address] [id number] [address] [place] [address] Mar, [facility] [address] [id number] [address] [place] [address] Mar, [facility] [address] [id number] [address] [place] [address] Mar, [facility] [address] [id number] [address] [place] [address] Mar, [facility] [address] [id number] [address] [place] [address] Mar, [facility] [address] [id number] [address] [place] [address], [place] [address] Mar, [facility] [address] [id number] [address] [place] [id number] Mar, [facility] [address] [id number] [address] [place] [address] Feb, [facility] [address] [id number] [facility] [address] 26 Feb, 2013 [facility] [address] [id number] [facility] [place] [address] 23 Feb, 2014 [facility] [address] [id number] [facility] [place] [address] 23 Feb, 2014 [facility] [address] [id number] [address] [place] [address], [place] [address] 19 Feb, 2013 [facility] [address] [id number] [address] [place] [address], [place] [address] 19 Feb, 2013 [facility] [address] [id number] [address] [place] [address], [place] [address] 13 Feb, 2014 [facility] [address] [id number] [address] [place] [address], [place] [address] Feb, [facility] [address] [id number] [address] [place] [address], [place] [address] Feb, [facility] [address] [id number] [address] [place] [address], [place] [address] Feb, [facility] [address] [id number] [address] [place] [address], [place] [address] Jan, [facility] [address] [id number] [address] [place] [address], [place] [address] Jan, [facility] [address] [id number] [address] [place] [address], [place] [address] Dec, [facility] [address] [id number] [address] [place] [address], [place] [address] Dec, [facility] [address] [id number] [address] [place] [address], [place] [address] Dec, [facility] [address] [id number] [address] [place] [address], [place] [address] Dec, [facility] [address] [id number] [address] [place] [address], [place] [address] Dec, [facility] [address] [id number] [address] [place] [address], [place] [address] Dec, [facility] [address] [id number] [address] [place] [address], [place] [address] Nov, [facility] [address] [id number] [address] [place] [address], [place] [address] Nov, [facility] [address] [id number] [address] [place] [address], [place] [address] Nov, [facility] [address] [id number] [address] [place] [address], [place] [address] Nov, [facility] [address] [id number] [address] [place] [address], [place] [address] October, [facility] [address] [id number] [address] [place] [address], [place] [address] October, [facility] [address] [id number] [address] [place] [address], [place] [address] October, [facility] [address] [id number] [address] [place] [address], [place] [address] October, [facility] [address] [id number] [address] [place] [address], [place] [address] October, [facility] [address] [id number] [address] [place] [address], [place] [address] October, [facility] [address] [id number] [address] [place] [address], [place] [address] October, [facility] [address] [id number] [address] [place] [address], [place] [address] October, [facility] [address] [id number] [address] [place] [address], [place] [address] October, [facility] [address] [id number] [address] [place] [address], [place] [address] October, [facility] [address] [id number] [address] [place] [address], [place] [address] October, [facility] [address] [id number] [address] [place] [address], [place] [address] October, [facility] [address] [id number] [address] [place] [address], [place] [address] October, [facility] [address] [id number] [address] [place] [address], [place] [address] October, [facility] [address] [id number] [address] [place] [address], [place] [address] October, [facility] [address] [id number] [address] [place] [address], [place] [address] October, [facility] [address] [id number] [address] [place] [address], [place] [address] Sep, [facility] [address] [id number] [address] [place] [address], [place] [address] Sep, [facility] [address] [id number] [address] [place] [address], [place] [address] Sep, [facility] [address] [id number] [address] [place] [address], [place] [address] Sep, [facility] [address] [id number] [address] [place] [address], [place] [address] Sep, [facility] [address] [id number] [address] [place] [address], [place] [address] Sep, [facility] [address] [id number] [address] [place] [address], [place] [address] Aug, [facility] [address] [id number] [address] [place] [address], [place] [address] Aug, [facility] [address] [id number] [address] [place] [address], [place] [address] Aug, [facility] [address] [id number] [address] [place] [address], [place] [address] Aug, [facility] [address] [id number] [address] [place] [address], [place] [address] Aug, [facility] [address] [id number] [address] [place] [address], [place] [address] Aug, [facility] [address] [id number] [address] [place] [address], [place] [address] Jul, [facility] [address] [id number] [address] [place] [address], [place] [address] Jul, [facility] [address] [id number] [address] [place] [address], [place] [address] Jul, [facility] [address] [id number] [address] [place] [address], [place] [address] Jul, [facility] [address] [id number] [address] [place] [address], [place] [address] Jun, [facility] [address] [id number] [address] [place] [address], [place] [address] Jun, [facility] [address] [id number] [address] [place] [address], [place] [address] May, [facility] [address] [id number] [address] [place] [address], [place] [address] May, [facility] [address] [id number] [address] [place] [address], [place] [address] May, [facility] [address] [id number] [address] [place] [address], [place] [address] May, [facility] [address] [id number] [address] [place] [address], [place] [address] May, [facility] [address] [id number] [address] [place] [address], [place] [address] Apr, [facility] [address] [id number] [address] [place] [address], [place] [address] 13 Apr, 2013 [facility] [address] [id number] [address] [address] Apr, [facility] [address] [id number] [address] [place] [address], [place] [address] Apr, [facility] [address] [id number] [address] [place] [address], [place] [address] Apr, [facility] [address] [id number] [address] [place] [address], [place] [address] Apr, [facility] [address] [id number] [address] [place] [id number] 15 Mar, 2013 [facility] [address] [id number] [address] [place] [address], [place] [address] 15 Mar, 2013 [facility] [address] [id number] [address] [place] [id number] 14 Mar, 2013 [facility] [address] [id number] [address] [place] [address], [place] [address] 14 Mar, 2013 [facility] [address] [id number] [address] [place] [id number] Mar, [facility] [address] [id number] [address] [place] [id number] Mar, [facility] [address] [id number] [address] [place] [id number] Feb, [facility] [address] [id number] [address] [place] [address], [place] [address] Feb, [facility] [address] [id number] [address] [place] [id number] Feb, [facility] [address] [id number] [address] [place] [address], [place] [address] Jan, [facility] [address] [id number] [address] [place] [address], [place] [address] Jan, [facility] [address] [id number] [address] [place] [id number] Jan, [facility] [address] [id number] [address] [place] [address], [place] [address] Jan, [facility] [address] [id number] [address] [place] [address], [place] [address] Jan, [facility] [address] [id number] [address] [place] [address], [place] [address] Jan, [facility] [address] [id number] [address] [place] [address], [place] [address] Dec, [facility] [address] [id number] [address] [place] [address], [place] [address] Dec, [facility] [address] [id number] [address] [place] [address], [place] [address] Dec, [facility] [address] [id number] [address] [place] [address], [place] [address] Dec, [facility] [address] [id number] [address] [place] [address], [place] [address] Dec, [facility] [address] [id number] [address] [place] [address], [place] [address] Dec, [facility] [address] [id number] [address] [place] [address], [place] [address] Nov, [facility] [address] [id number] [address] [place] [address], [place] [address] Nov, [facility] [address] [id number] [address] [place] [address], [place] [address] Nov, [facility] [address] [id number] [address] [place] [address], [place] [address] Nov, [facility] [address] [id number] [address] [place] [address], [place] [address] Nov, [facility] [address] [id number] [address] [place] [address], [place] [address] Nov, [facility] [address] [id number] [address] [place] [address], [place] [address] October, [facility] [address] [id number] [address] [place] [address], [place] [address] October, [facility] [address] [id number] [address] [place] [address], [place] [address] October, [facility] [address] [id number] [address] [place] [address], [place] [address] October, [facility] [address] [id number] [address] [place] [address], [place] [address] October, [facility] [address] [id number] [address] [place] [address], [place] [address] Sep, [facility] [address] [id number] [address] [place] [address], [place] [address] Sep, [facility] [address] [id number] [address] [place] [address], [place] [address] Sep, [facility] [address] [id number] [address] [place] [address], [place] [address] Sep, [facility] [address] [id number] [address] [place] [address], [place] [address] Sep, [facility] [address] [id number] [address] [place] [address], [place] [address] Aug, [facility] [address] [id number] [address] [place] [address], [place] [address] Aug, [facility] [address] [id number] [address] [place] [address], [place] [address] Aug, [facility] [address] [id number] [address] [place] [address], [place] [address] Jul, [facility] [address] [id number] [address] [place] [address], [place] [address] Jul, [facility] [address] [id number] [address] [place] [address], [place] [address] Jul, [facility] [address] [id number] [address] [place] [address], [place] [address] 08 Jul, 2012 [facility] [address] [id number] [address] [place] [address], [place] [address] 06 Jul, 2012 [facility] [address] [id number] [address] [place] [address], [place] [address] 05 Jul, 2012 [facility] [address] [id number] [address] [place] [address], [place] [address] Jun, [facility] [address] [id number] [address] [place] [address], [place] [address] Apr, [facility] [address] [id number] [address] [place] [address], [place] [address] Apr, [facility] [address] [id number] [address] [place] [address], [place] [address] Apr, [facility] [address] [id number] [address] [place] [address], [place] [address] Apr, [facility] [address] [id number] [address] [place] [address], [place] [address] Mar, [facility] [address] [id number] [address] [place] [address], [place] [address] Mar, [facility] [address] [id number] [address] [place] [address], [place] [address] Mar, [facility] [address] [id number] [address] [place] [address], [place] [address] Mar, [facility] [address] [id number] [address] [place] [address], [place] [address] Mar, [facility] [address] [id number] [address] [place] [address], [place] [address] Feb, [facility] [address] [id number] [address] [place] [address], [place] [address] Jan, [facility] [address] [id number] [address] [place] [address], [place] [address] Jan, [facility] [address] [id number] [address] [place] [id number] Jan, [facility] [address] [id number] [address] [place] [id number] Dec, [facility] [address] [id number] [address] [place] [id number] Nov, [facility] [address] [id number] [address] [place] [address] Nov, [facility] [address] [id number] [address] [place] [id number] Nov, [facility] [address] [id number] [address] [place] [id number] Nov, [facility] [address] [id number] [address] [place] [address] Nov, [facility] [address] [id number] [address] [place] [address] October, [facility] [address] [id number] [address] [place] [id number] October, [facility] [address] [id number] [address] [place] [id number] October, [facility] [address] [id number] [address] [place] [id number] October, [facility] [address] [id number] [address] [place] [id number] October, IMMUNIZATIONS No Known Immunizations SOCIAL HISTORY [...]
--- OUTSIDE RECORDS SUMMARY | 2020-01-25 08:04 | XMS REPORT ---
Author Author Velma CORDERO Organization [facility] Address [address] [place] [address] Care Team Providers Care Project Development Manager Name Role Phone STEPHAN CORDERO Unavailable PROBLEMS Type Condition ICD9-CM Code SIV55-YP Code Onset Dates Condition S tatus SNOMED Code Problem Hypercholesteremia E78.0 Active 1 5012544 Problem Arthritis M19.90 Active 4406096 Problem Hyperparathyroidism E21.3 Active 03804508 Problem Primary insomnia F51.01 Active 397 2004 Problem Myalgia M79.1 Active 22655026 Problem Chronic kidney disease, stage 4 (severe) N18.4 Active 515078083 Problem BPV (benign positional vertigo), bilateral H81.13 Active 944159159 Problem Corns L84 Active 119145507 Problem Mood disorder F39 Active 056865 05 Problem 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 Active 97784226 Problem 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 Active 47719848 ALLERGIES Substance Reaction Event Type Date Status Ibuprofen no anti inflammatories Drug Allergy Nov, Activ e Cymbalta nausea and vomiting Drug Allergy Nov, Active Clonidine HCl blurry vision/weakness Drug Allergy Nov, Acti ve ENCOUNTERS Encounter Location Date Diagnosis [facility] [address] [facility] [id number] [address] [place] [address] Jan, Labyrinthitis of left ear H8 3.02 [facility] [address] [facility] [id number] [address] [place] [address] Jan, Arthritis M19.90 [facility] [address] [facility] [id number] [address] [place] [address] Dec, Labyrinthitis of left ear H8 3.02 [facility] [address] [facility] [id number] [address] [place] [address] Nov, Arthritis M19.90 [place] [address] [place] [id number] [address] [place] [address] Nov, Labyrinthitis of left ear H8 3.02 [place] [address] [place] [id number] [place] [address] 06 Nov, 2017 BMI 40.0-44.9, adult Z68.41 ; Chronic kidney disease, stage 4 (severe) N18.4 and Acute right-sided thoracic back pain M54.6 [place] [address] [address] October, Labyrinthitis of left ear H8 3.02 and Arthritis M19.90 [place] [address] [address] Sep, BPV (benign positional verti go), bilateral H81.13 ; Dysfunction of left eustachian tube H69.82 and BMI 40.0-44.9, adult Z68.41 [place] [address] [address] Sep, Labyrinthitis of left ear H8 3.02 and Arthritis M19.90 [place] [address] [address] Sep, [place] [address] [place] [id number] [place] [address] Sep, [place] [address] [place] [id number] [place] [address] Sep, Chronic kidney disease, stag e 4 (severe) N18.4 [place] [address] [place] [id number] [place] [address] Sep, Chronic kidney disease, stag e 4 (severe) N18.4 [place] [address] [place] [id number] [address] [place] [address] Aug, Labyrinthitis of left ear H8 3.02 and Arthritis M19.90 [facility] [address] [id number] [address] [place] [address] Aug, [facility] [address] [id number] [address] [place] [address] Jul, [facility] [address] [id number] [address] [place] [address] Jul, Arthritis M19.90 and Labyrin thitis of left ear H83.02 [facility] [address] [id number] [address] [place] [address] Jul, [facility] [address] [facility] [id number] [address] [place] [address] Jun, [facility] [address] [facility] [id number] [address] [place] [address] Jun, Arthritis M19.90 and Labyrin thitis of left ear H83.02 [place] [address] [facility] [id number] [address] [place] [address] Jun, Pre-op evaluation Z01.818 ; BMI 40.0-44.9, adult Z68.41 and Encounter for immunization Z23 [place] [address] [facility] [id number] [address] [place] [address] May, Arthritis M19.90 and Labyrin thitis of left ear H83.02 [place] [address] [facility] [id number] [address] [place] [address] Apr, Labyrinthitis of left ear H8 3.02 [facility] [address] [facility] [id number] [address] [place] [address] Apr, Arthritis M19.90 and Labyrin thitis of left ear H83.02 [facility] [address] [facility] [id number] [address] [place] [address] 10 Mar, 2017 Arthritis M19.90 and Labyrin thitis of left ear H83.02 [facility] [address] [id number] [address] [place] [address] Mar, Chronic kidney disease, stag e 4 (severe) N18.4 [facility] [address] [facility] [id number] [address] [place] [address] 06 Feb, 2017 Arthritis M19.90 and Labyrin thitis of left ear H83.02 [facility] [address] [facility] [id number] [address] [place] [address] Jan, Labyrinthitis of left ear H8 3.02 and 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 [facility] [address] [id number] [address] [place] [address] Dec, Arthritis M19.90 [facility] [address] [facility] [id number] [address] [place] [address] Dec, BPV (benign positional verti go), bilateral H81.13 [facility] [address] [facility] [id number] [address] [place] [address] Dec, [facility] [address] [facility] [id number] [address] [place] [address] Dec, [facility] [address] [facility] [id number] [address] [place] [address] Dec, [facility] [address] [facility] [id number] [address] [place] [address] Nov, Arthritis M19.90 and Deficie ncy of other specified B group vitamins E53.8 [facility] [address] [facility] [id number] [address] [place] [address] Nov, Arthritis M19.90 [facility] [address] [facility] [id number] [address] [place] [address] Nov, Hyperparathyroidism E21.3 [facility] [address] [facility] [id number] [address] [place] [address] October, [facility] [address] [facility] [id number] [address] [place] [address] October, Hyperparathyroidism E21.3 [facility] [address] [facility] [id number] [address] [place] [address] October, [facility] [address] [facility] [id number] [address] [place] [address] October, Renal insufficiency N28.9 an d Hyperparathyroidism E21.3 [facility] [address] [facility] [id number] [address] [place] [address] October, [facility] [address] [facility] [id number] [address] [place] [address] October, Renal insufficiency N28.9 an d Hyperparathyroidism E21.3 [facility] [address] [place] [id number] [place] [address] October, Arthritis M19.90 [facility] [address] [address] Sep, [facility] [address] [place] [id number] [place] [address] Sep, Lumbar neuritis M54.16 ; Tho racic abscess J86.9 and 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 [facility] [address] [place] [id number] [address] [place] [address] Sep, [facility] [address] [place] [id number] [address] [place] [address] Aug, Arthritis M19.90 [facility] [address] [place] [id number] [address] [place] [address] Aug, Hyperparathyroidism E21.3 [facility] [address] [place] [id number] [address] [place] [address] Aug, Hyperparathyroidism E21.3 [facility] [address] [place] [id number] [address] [place] [address] Aug, Arthritis M19.90 [facility] [address] [place] [id number] [address] [place] [address] Jul, Mass of throat R22.1 [facility] [address] [place] [id number] [address] [place] [address] Jul, [facility] [address] [place] [id number] [address] [place] [address] Jul, Arthritis M19.90 [facility] [address] [place] [id number] [address] [place] [address] Jun, Arthritis M19.90 [facility] [address] [place] [id number] [address] [place] [address] Jun, [facility] [address] [address] Jun, Renal insufficiency N28.9 an d 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 [facility] [address] [place] [id number] [address] [place] [address] Jun, Medicare welcome exam Z00.00 ; Encounter for immunization Z23 ; Arthritis M19.90 ; Medicare annual wellness visit, initial Z00.00 ; Medicare annual wellness visit, subsequent Z00.00 and 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 [facility] [address] [facility] [id number] [address] [place] [address] May, Renal insufficiency N28.9 an d 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 [facility] [address] [facility] [id number] [address] [place] [address] May, Renal insufficiency N28.9 [facility] [address] [place] [id number] [address] [place] [address] May, Renal insufficiency N28.9 [facility] [address] [place] [id number] [address] [place] [address] May, [facility] [address] [place] [id number] [address] [place] [address] Apr, [facility] [address] [place] [id number] [address] [place] [address] Apr, [facility] [address] [id number] [address] [place] [address] 14 Apr, 2016 Mass of throat R22.1 [facility] [address] [id number] [address] [place] [address] 10 Apr, 2016 [facility] [address] [id number] [address] [place] [address] Apr, Mass of throat R22.1 [facility] [address] [id number] [address] [place] [address] 04 Apr, 2016 Mass of throat R22.1 [facility] [address] [id number] [address] [place] [address] Mar, [facility] [address] [facility] [id number] [address] [place] [address] Mar, [facility] [address] [facility] [id number] [address] [place] [address] Mar, [facility] [address] [facility] [id number] [address] [place] [address] 24 Mar, 2016 Parathyroid abnormality E21. 5 and Encounter for immunization Z23 [facility] [address] [facility] [id number] [address] [place] [address] Mar, [facility] [address] [facility] [id number] [address] [place] [address] Mar, [facility] [address] [facility] [id number] [address] [place] [address] 21 Feb, 2016 Renal insufficiency N28.9 an d Hyperparathyroidism E21.3 [facility] [address] [facility] [id number] [address] [place] [address] 19 Feb, 2016 [facility] [address] [facility] [id number] [address] [place] [address] 15 Feb, 2016 Renal insufficiency N28.9 an d Hyperparathyroidism E21.3 [facility] [address] [facility] [id number] [address] [place] [address] 14 Feb, 2016 [facility] [address] [id number] [address] [place] [address] Feb, [facility] [address] [facility] [id number] [address] [place] [address] 09 Feb, 2016 [facility] [address] [facility] [id number] [address] [place] [address] Jan, [facility] [address] [facility] [id number] [address] [place] [address] Jan, Arthritis M19.90 ; Lumbago w ith sciatica, right side M54.41 and Other chronic pain G89.29 [facility] [address] [facility] [id number] [address] [place] [address] Jan, [facility] [address] [facility] [id number] [address] [place] [address] Dec, Arthritis M19.90 ; Lumbago w ith sciatica, right side M54.41 and Other chronic pain G89.29 [facility] [address] [facility] [id number] [address] [place] [address] Nov, Deficiency of other specifie d B group vitamins E53.8 ; Primary insomnia F51.01 ; Mood disorder F39 and Lumbago with sciatica, right side M54.41 [facility] [address] [facility] [id number] [address] [place] [address] Nov, Hyperparathyroidism E21.3 [facility] [address] [facility] [id number] [address] [place] [address] Nov, Unspecified kidney failure N 19 and Hyperparathyroidism E21.3 [facility] [address] [facility] [id number] [address] [place] [address] October, Hyperparathyroidism E21.3 [facility] [address] [facility] [id number] [address] [place] [address] October, [facility] [address] [facility] [id number] [address] [place] [address] October, Hyperparathyroidism E21.3 [facility] [address] [address] October, Hyperparathyroidism E21.3 [facility] [address] [address] Sep, Hyperparathyroidism E21.3 ; Hypercholesterolemia E78.0 and Arthritis M19.90 [facility] [address] [address] Aug, [facility] [address] [address] Aug, Deficiency of other specifie d B group vitamins E53.8 [facility] [address] [address] Aug, [facility] [address] [address] Jul, Urinary frequency R35.0 [facility] [address] [address] Jul, Urinary frequency R35.0 [facility] [address] [address] Jul, [facility] [address] [address] Jul, [facility] [address] [address] Jun, Pain in left knee M25.562 [place] [address] [address] Jun, [facility] [address] [address] May, Swelling of left knee joint M25.462 [place] [address] [address] May, [facility] [address] [facility] [id number] [address] [place] [address] May, [facility] [address] [facility] [id number] [address] [place] [address] May, [facility] [address] [facility] [id number] [address] [place] [address] Apr, Renal insufficiency N28.9 an d Chronic kidney disease, stage 4 (severe) N18.4 [facility] [address] [facility] [id number] [address] [place] [address] Apr, Unspecified kidney failure N 19 [facility] [address] [facility] [id number] [place] [address] Apr, Unspecified kidney failure N 19 [facility] [address] [place] [id number] [place] [address] Apr, [facility] [address] [place] [id number] [address] [place] [address] Apr, Hyperparathyroidism, unspeci fied 252.00 [facility] [address] [place] [id number] [address] [place] [address] Apr, [facility] [address] [place] [id number] [address] [place] [address] Mar, [facility] [address] [place] [id number] [address] [place] [address] Mar, [facility] [address] [facility] [id number] [address] [place] [address] Mar, Hyperparathyroidism, unspeci fied 252.00 [facility] [address] [facility] [id number] [address] [place] [address] Feb, [facility] [address] [place] [id number] [address] [place] [address] Feb, Otalgia 388.70 [facility] [address] [place] [id number] [place] [address] Feb, [facility] [address] [id number] [address] [place] [address] Feb, [facility] [address] [id number] [address] [place] [address] Jan, [facility] [address] [id number] [address] [place] [address] Jan, Hyperparathyroidism, unspeci fied 252.00 [facility] [address] [id number] [address] [place] [address] Jan, [facility] [address] [id number] [address] [place] [address] Jan, Other B-complex deficiencies 266.2 and Hyperparathyroidism, unspecified 252.00 [facility] [address] [id number] [address] [place] [address] Jan, [facility] [address] [id number] [address] [place] [address] Jan, [facility] [address] [facility] [id number] [address] [place] [address] Jan, [facility] [address] [id number] [address] [place] [address] Dec, [facility] [address] [facility] [id number] [address] [place] [address] Dec, [facility] [address] [facility] [id number] [address] [place] [address] Dec, [facility] [address] [id number] [address] [place] [address] Nov, Routine check-up V70.0 and P re-op exam V72.84 [facility] [address] [id number] [address] [place] [address] Nov, [facility] [address] [id number] [address] [place] [address] Nov, [facility] [address] [id number] [address] [place] [address], [place] [address] October, [facility] [address] [id number] [address] [place] [address], [place] [address] October, Other B-complex deficiencies 266.2 [facility] [address] [id number] [address] [place] [address], [place] [address] October, [facility] [address] [id number] [address] [place] [address], [place] [address] Sep, [facility] [address] [id number] [address] [place] [address], [place] [address] Sep, [facility] [address] [id number] [address] [place] [address] Aug, [facility] [address] [id number] [address] [place] [address], [place] [address] Aug, [facility] [address] [id number] [address] [place] [id number] Aug, [facility] [address] [id number] [address] [place] [address], [place] [address] Aug, [facility] [address] [id number] [address] [place] [address], [place] [address] Aug, [facility] [address] [id number] [address] [place] [id number] Aug, [facility] [address] [id number] [address] [place] [id number] Jul, [facility] [address] [id number] [address] [place] [address], [place] [address] Jul, [facility] [address] [id number] [address] [place] [id number] Jul, [facility] [address] [id number] [address] [place] [id number] Jul, [facility] [address] [id number] [address] [place] [address], [place] [address] Jul, 2014 [facility] [address] [id number] [address] [place] [address], [place] [address] Jul, 2014 [facility] [address] [id number] [address] [place] [address], [place] [address] Jul, 2014 [facility] [address] [id number] [address] [place] [address], [place] [address] Jul, 2014 [facility] [address] [id number] [address] [place] [address], [place] [address] Jul, 2014 [facility] [address] [id number] [address] [place] [address], [place] [address] Jul, 2014 [facility] [address] [id number] [address] [place] [address], [place] [address] Jul, 2014 [facility] [address] [id number] [address] [place] [address], [place] [address] Jul, 2014 [facility] [address] [id number] [address] [place] [address], [place] [address] Jul, [facility] [address] [id number] [address] [place] [address], [place] [address] Jul, [facility] [address] [id number] [address] [place] [id number] Jun, [facility] [address] [id number] [address] [place] [id number] Jun, [facility] [address] [id number] [address] [place] [address], [place] [address] Jun, [facility] [address] [id number] [address] [place] [address], [place] [address] Jun, [facility] [address] [id number] [address] [place] [id number] Jun, [facility] [address] [id number] [address] [place] [id number] Jun, [facility] [address] [id number] [address] [place] [address], [place] [address] Jun, [facility] [address] [id number] [address] [place] [address], [place] [address] Jun, [facility] [address] [id number] [address] [place] [address], [place] [address] Jun, [facility] [address] [id number] [address] [place] [address], [place] [address] Jun, [facility] [address] [id number] [address] [place] [address], [place] [address] Jun, [facility] [address] [id number] [address] [place] [address], [place] [address] Jun, [facility] [address] [id number] [address] [place] [address], [place] [address] Jun, [facility] [address] [id number] [address] [place] [address], [place] [address] Jun, [facility] [address] [id number] [address] [place] [address], [place] [address] May, [facility] [address] [id number] [address] [place] [address], [place] [address] May, [facility] [address] [id number] [address] [place] [address], [place] [address] May, [facility] [address] [id number] [address] [place] [address], [place] [address] May, [facility] [address] [id number] [address] [place] [address], [place] [address] Apr, [facility] [address] [id number] [address] [place] [address], [place] [address] Apr, [facility] [address] [id number] [address] [place] [address], [place] [address] Apr, [facility] [address] [id number] [address] [place] [address], [place] [address] Apr, [facility] [address] [id number] [address] [place] [address], [place] [address] Apr, [facility] [address] [id number] [address] [place] [address], [place] [address] Apr, [facility] [address] [id number] [address] [place] [address], [place] [address] Mar, [facility] [address] [id number] [address] [place] [address], [place] [address] Mar, [facility] [address] [id number] [address] [place] [address], [place] [address] Mar, [facility] [address] [id number] [address] [place] [address], [place] [address] Mar, [facility] [address] [id number] [address] [place] [address], [place] [address] Mar, [facility] [address] [id number] [address] [place] [address], [place] [address] Mar, [facility] [address] [id number] [address] [place] [address], [place] [address] Mar, [facility] [address] [id number] [address] [place] [address], [place] [address] Mar, [facility] [address] [id number] [address] [place] [address], [place] [address] Mar, [facility] [address] [id number] [address] [place] [address], [place] [address] Mar, [facility] [address] [id number] [address] [place] [address], [place] [address] Mar, [facility] [address] [id number] [address] [place] [address], [place] [address] Mar, [facility] [address] [id number] [address] [place] [address], [place] [address] Mar, [facility] [address] [id number] [facility] [place] [address] Feb, [facility] [address] [id number] [facility] [place] [address] Feb, [facility] [address] [id number] [address] [place] [address], [place] [address] Feb, [facility] [address] [id number] [address] [place] [address], [place] [address] Feb, [facility] [address] [id number] [address] [place] [address], [place] [address] Feb, [facility] [address] [id number] [address] [place] [address], [place] [address] Feb, [facility] [address] [id number] [address] [place] [address], [place] [address] Feb, [facility] [address] [id number] [address] [place] [address], [place] [address] Feb, [facility] [address] [id number] [address] [place] [address], [place] [address] Feb, [facility] [address] [id number] [address] [place] [address], [place] [address] Feb, [facility] [address] [id number] [address] [place] [address], [place] [address] Jan, [facility] [address] [id number] [address] [place] [address], [place] [address] Jan, [facility] [address] [id number] [address] [place] [address], [place] [address] Dec, [facility] [address] [id number] [address] [place] [address], [place] [address] Dec, [facility] [address] [id number] [address] [place] [address], [place] [address] Dec, [facility] [address] [id number] [facility] [place] [address] Dec, [facility] [address] [id number] [address] [place] [address], [place] [address] Dec, [facility] [address] [id number] [address] [place] [address], [place] [address] Dec, [facility] [address] [id number] [address] [place] [address], [place] [address] Nov, [facility] [address] [id number] [address] [place] [address], [place] [address] Nov, [facility] [address] [id number] [address] [place] [address], [place] [address] Nov, [facility] [address] [id number] [address] [place] [address], [place] [address] Nov, [facility] [address] [id number] [address] [place] [address], [place] [address] October, [facility] [address] [id number] [address] [place] [address], [place] [address] October, [facility] [address] [id number] [address] [place] [address], [place] [address] October, [facility] [address] [id number] [address] [place] [address], [place] [address] October, [facility] [address] [id number] [address] [place] [address], [place] [address] October, [facility] [address] [id number] [address] [place] [address], [place] [address] October, [facility] [address] [id number] [address] [place] [address], [place] [address] October, [facility] [address] [id number] [address] [place] [address], [place] [address] October, [facility] [address] [id number] [address] [place] [address], [place] [address] October, [facility] [address] [id number] [facility] [place] [address] October, [facility] [address] [id number] [address] [place] [address], [place] [address] October, [facility] [address] [id number] [address] [place] [address], [place] [address] October, [facility] [address] [id number] [address] [place] [address], [place] [address] October, [facility] [address] [id number] [address] [place] [address], [place] [address] October, [facility] [address] [id number] [address] [place] [address], [place] [address] October, [facility] [address] [id number] [address] [place] [address], [place] [address] October, [facility] [address] [id number] [address] [place] [address], [place] [address] Sep, [facility] [address] [id number] [address] [place] [address], [place] [address] Sep, [facility] [address] [id number] [address] [place] [address], [place] [address] Sep, [facility] [address] [id number] [address] [place] [address], [place] [address] Sep, [facility] [address] [id number] [address] [place] [address], [place] [address] Sep, [facility] [address] [id number] [address] [place] [address], [place] [address] Sep, [facility] [address] [id number] [address] [place] [address], [place] [address] Aug, [facility] [address] [id number] [address] [place] [address], [place] [address] Aug, [facility] [address] [id number] [address] [place] [address], [place] [address] Aug, [facility] [address] [id number] [address] [place] [address], [place] [address] Aug, [facility] [address] [id number] [address] [place] [address], [place] [address] Aug, [facility] [address] [id number] [address] [place] [address], [place] [address] Aug, [facility] [address] [id number] [address] [place] [address], [place] [address] Jul, [facility] [address] [id number] [address] [place] [address], [place] [address] Jul, [facility] [address] [id number] [address] [place] [address], [place] [address] Jul, [facility] [address] [id number] [address] [place] [address], [place] [address] Jul, [facility] [address] [id number] [address] [place] [address], [place] [address] Jun, [facility] [address] [id number] [address] [place] [address], [place] [address] Jun, [facility] [address] [id number] [address] [place] [address], [place] [address] May, [facility] [address] [id number] [address] [place] [address], [place] [address] May, [facility] [address] [id number] [address] [place] [address], [place] [address] May, [facility] [address] [id number] [address] [place] [address], [place] [address] May, [facility] [address] [id number] [address] [place] [address], [place] [address] May, [facility] [address] [id number] [address] [place] [address], [place] [address] Apr, [facility] [address] [id number] [address] [place] [address], [place] [address] 13 Apr, 2013 [facility] [address] [id number] [address] [place] [address], [place] [address] Apr, [facility] [address] [id number] [address] [place] [address], [place] [address] Apr, [facility] [address] [id number] [address] [place] [address], [place] [address] 04 Apr, 2013 [facility] [address] [id number] [address] [place] [address], [place] [address] 04 Apr, 2013 [facility] [address] [id number] [address] [place] [address], [place] [address] 15 Mar, 2013 [facility] [address] [id number] [address] [place] [address], [place] [address] 15 Mar, 2013 [facility] [address] [id number] [address] [place] [address], [place] [address] 14 Mar, 2013 [facility] [address] [id number] [address] [place] [address], [place] [address] 14 Mar, 2013 [facility] [address] [id number] [address] [place] [address], [place] [address] Mar, [facility] [address] [id number] [address] [place] [address], [place] [address] Mar, [facility] [address] [id number] [address] [place] [address], [place] [address] 23 Feb, 2013 [facility] [address] [id number] [address] [place] [address], [place] [address] 19 Feb, 2013 [facility] [address] [id number] [address] [place] [address], [place] [address] 04 Feb, 2013 [facility] [address] [id number] [address] [place] [address], [place] [address] Jan, [facility] [address] [id number] [address] [place] [address], [place] [address] Jan, [facility] [address] [id number] [facility] [place] [address] Jan, [facility] [address] [id number] [address] [place] [address], [place] [address] Jan, [facility] [address] [id number] [address] [place] [address], [place] [address] Jan, [facility] [address] [id number] [address] [place] [address], [place] [address] Jan, [facility] [address] [id number] [address] [place] [address], [place] [address] Dec, [facility] [address] [id number] [address] [place] [address], [place] [address] Dec, [facility] [address] [id number] [address] [place] [address], [place] [address] Dec, [facility] [address] [id number] [address] [place] [address], [place] [address] Dec, [facility] [address] [id number] [address] [place] [address], [place] [address] Dec, [facility] [address] [id number] [address] [place] [address], [place] [address] Dec, [facility] [address] [id number] [address] [place] [address], [place] [address] Nov, [facility] [address] [id number] [address] [place] [address], [place] [address] Nov, [facility] [address] [id number] [address] [place] [address], [place] [address] Nov, [facility] [address] [id number] [address] [place] [address], [place] [address] Nov, [facility] [address] [id number] [address] [place] [address], [place] [address] Nov, [facility] [address] [id number] [address] [place] [address], [place] [address] Nov, [facility] [address] [id number] [address] [place] [address], [place] [address] October, [facility] [address] [id number] [address] [place] [address], [place] [address] October, [facility] [address] [id number] [address] [place] [address], [place] [address] October, [facility] [address] [id number] [address] [place] [address], [place] [address] October, [facility] [address] [id number] [address] [place] [address], [place] [address] October, [facility] [address] [id number] [address] [place] [address], [place] [address] Sep, [facility] [address] [id number] [address] [place] [address], [place] [address] Sep, [facility] [address] [id number] [address] [place] [address], [place] [address] Sep, [facility] [address] [id number] [address] [place] [address], [place] [address] Sep, [facility] [address] [id number] [address] [place] [address], [place] [address] Sep, [facility] [address] [id number] [address] [place] [address], [place] [address] Aug, [facility] [address] [id number] [address] [place] [address], [place] [address] Aug, [facility] [address] [id number] [address] [place] [address], [place] [address] Aug, [facility] [address] [id number] [address] [place] [address], [place] [address] Jul, [facility] [address] [id number] [address] [place] [address], [place] [address] Jul, [facility] [address] [id number] [address] [place] [address], [place] [address] Jul, 2012 [facility] [address] [id number] [address] [place] [address], [place] [address] Jul, [facility] [address] [id number] [address] [place] [address], [place] [address] Jul, [facility] [address] [id number] [address] [place] [address], [place] [address] Jul, [facility] [address] [id number] [address] [place] [address], [place] [address] Jun, [facility] [address] [id number] [address] [place] [address], [place] [address] Apr, [facility] [address] [id number] [address] [place] [address], [place] [address] Apr, [facility] [address] [id number] [address] [place] [address], [place] [address] Apr, [facility] [address] [id number] [address] [place] [address], [place] [address] Apr, [facility] [address] [id number] [address] [place] [address], [place] [address] Mar, [facility] [address] [id number] [address] [place] [address], [place] [address] Mar, [facility] [address] [id number] [address] [place] [address] Mar, [facility] [address] [id number] [address] [place] [address], [place] [address] Mar, [facility] [address] [id number] [address] [place] [address], [place] [address] Mar, [facility] [address] [id number] [address] [place] [address], [place] [address] Feb, [facility] [address] [id number] [address] [place] [address] Jan, [facility] [address] [id number] [address] [place] [address] Jan, [facility] [address] [id number] [address] [place] [address] Jan, [facility] [address] [id number] [address] [place] [address] Dec, [facility] [address] [id number] [address] [place] [address] Nov, [facility] [address] [id number] [address] [place] [address] Nov, [facility] [address] [id number] [address] [place] [address] Nov, [facility] [address] [id number] [address] [place] [address] Nov, [facility] [address] [id number] [address] [place] [address] Nov, [facility] [address] [id number] [address] [place] [address] October, [facility] [address] [id number] [address] [place] [address] October, [facility] [address] [id number] [address] [place] [address] October, [facility] [address] [id number] [address] [place] [address] October, [facility] [address] [id number] [address] [place] [phone] October, IMMUNIZATIONS No Known Immunizations SOCIAL HISTORY Never Assessed REASON FOR VISIT Kidney problems - [facility] [place], Right sided pain PLAN OF CARE VITAL SIGNS Height 66 in 2017-12-02 Weight 259.0 lbs 2017-12-02 Temperature 97.9 degrees Fahrenheit 2017-12-02 Heart Rate 74 bpm 2017-12-02 Respiratory Rate 16 2017-12-02 BMI 41.80 kg/m2 2017-12-02 Blood pressure systolic 120 mmHg 2017-12-02 Blood pressure diastolic 80 mmHg 2017-12-02 MEDICATIONS Medication Instructions Dosage Frequency Start Date End Date Duration S tatus Levothyroxine Sodium 50 mcg Orally Once a day 1 tablet on an empty stomach in the morning 24h 90 days Active PredniSONE 20 mg Orally Once a day 2 tablets 24h Nov, Nov, 05 days Active Lisinopril 5 mg Orally Once a day 1 tablet 24h 90 da ys Active SudoGest 60 mg Orally every 6 hrs 1 tablet as needed 6h 24 Sep, 8 05 days Not-Taking Calcium 500 mg Orally 3 times a day 1 tablet 8h Active Fluticasone Propionate 50 MCG/ACT Nasally Once a day 1 spray in each nostril 24h Feb, Active Chlorzoxazone 500 mg 1 tablet 12h Ac tive Hydrocodone-Acetaminophen 10-325 MG Orally 3 times a day 1 tablet a s needed 8h October, 28 days Active Meclizine HCl 25 MG Orally 4 times a day 1 tablet as needed 6h 26 J 2016 Active Multivital [place] Acti ve Bicarb-Mg (CRRT) 10 by oral route 2 times a day 2 tablets 12h Not-Taking Zolpidem Tartrate 10 mg Orally Once a day 1 tablet at bedtime 24h 28 days Active Cetirizine HCl 10 MG Orally Once a day 1 tablet 24h Active Omeprazole 40 mg Orally Once a day TAKE ONE CAPSULE BY MOUTH ONCE HECTOR Y 24h 90 days Active RESULTS Name Result Date Reference Range UA LONG DIP (IN HOUSE) 2017-12-02 Lot # [id number] Exp date 09/2018 Clarity clear Color yellow Odor none GLU negative MARIOLA negative KET negative SG 1.10 BLO negative pH 5.0 Protein negative URO 0.2 NIT negative MARCELO negative Lot # Exp date PROCEDURES Procedure Date Ordered Result Body Site URINALYSIS, AUTO, W/O SCOPE December 02, 2017 INSTRUCTIONS MEDICATIONS ADMINISTERED No Known Medications MEDICAL [...]
--- OUTSIDE RECORDS SUMMARY | 2020-01-25 08:04 | XMS REPORT ---
Author Author Velma CORDERO Organization [facility] Address [address] [place] [address] Care Team Providers Care Marine Habitat Resource Specialist Name Role Phone STEPHAN CORDERO Unavailable PROBLEMS Type Condition ICD9-CM Code [id number] Code Onset Dates Condition S tatus SNOMED Code Problem Hypercholesteremia E78.0 Active 1 6622781 Problem Arthritis M19.90 Active 3060303 Problem Hyperparathyroidism E21.3 Active 69894132 Problem Primary insomnia F51.01 Active 397 2004 Problem Myalgia M79.1 Active 44328426 Problem Chronic kidney disease, stage 4 (severe) N18.4 Active 125158959 Problem BPV (benign positional vertigo), bilateral H81.13 Active 019047471 Problem Corns L84 Active 759063893 Problem Mood disorder F39 Active 126655 05 Problem 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 Active 27393066 Problem 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 Active 01891936 ALLERGIES No Information ENCOUNTERS Encounter Location Date Diagnosis [facility] [id number] [address] [place] [id number] Jan, [facility] [id number] [address] [place] [id number] Jan, Arthritis M19.90 [facility] [id number] [address] [place] [phone] Dec, Labyrinthitis of left ear H8 3.02 [facility] [id number] [place] [id number] Nov, Arthritis M19.90 [facility] [address] [facility] [id number] [address] [place] [id number] Nov, Labyrinthitis of left ear H8 3.02 [facility] [id number] [place] [address] Nov, BMI 40.0-44.9, adult Z68.41 ; Chronic kidney disease, stage 4 (severe) N18.4 and Acute right-sided thoracic back pain M54.6 [facility] [id number] [place] [address] October, Labyrinthitis of left ear H8 3.02 and Arthritis M19.90 [facility] [id number] [place] [id number] Sep, BPV (benign positional verti go), bilateral H81.13 ; Dysfunction of left eustachian tube H69.82 and BMI 40.0-44.9, adult Z68.41 [facility] [id number] [place] [address] Sep, Labyrinthitis of left ear H8 3.02 and Arthritis M19.90 [facility] [address] [phone] Sep, [facility] [address] [phone] Sep, [facility] [address] [phone] Sep, Chronic kidney disease, stag e 4 (severe) N18.4 [facility] [id number] [place] [address] Sep, Chronic kidney disease, stag e 4 (severe) N18.4 [facility] [id number] [address] [place] [id number] Aug, Labyrinthitis of left ear H8 3.02 and Arthritis M19.90 [facility] [id number] [address] [place] [id number] Aug, [facility] [id number] [place] [id number] Jul, [place] [id number] [place] [id number] Jul, Arthritis M19.90 and Labyrin thitis of left ear H83.02 [facility] [id number] [place] [phone] Jul, [place] [address] [address] Jun, [place] [address] [address] Jun, Arthritis M19.90 and Labyrin thitis of left ear H83.02 [place] [id number] [place] [address] Jun, Pre-op evaluation Z01.818 ; BMI 40.0-44.9, adult Z68.41 and Encounter for immunization Z23 [place] [id number] [place] [phone] May, Arthritis M19.90 and Labyrin thitis of left ear H83.02 [place] [address] [address] Apr, Labyrinthitis of left ear H8 3.02 [place] [address] [address] Apr, Arthritis M19.90 and Labyrin thitis of left ear H83.02 [place] [id number] [place] [id number] Mar, Arthritis M19.90 and Labyrin thitis of left ear H83.02 [place] [id number] [place] [address] Mar, Chronic kidney disease, stag e 4 (severe) N18.4 [place] [id number] [place] [address] Feb, Arthritis M19.90 and Labyrin thitis of left ear H83.02 [facility] [address] [id number] [address] [place] [phone] Jan, Labyrinthitis of left ear H8 3.02 and 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 [facility] [address] [facility] [id number] [address] [place] [id number] Dec, Arthritis M19.90 [facility] [address] [facility] [id number] [address] [place] [phone] Dec, BPV (benign positional verti go), bilateral H81.13 [facility] [address] [facility] [id number] [address] [place] [id number] Dec, [facility] [address] [facility] [id number] [address] [place] [phone] Dec, [facility] [address] [facility] [id number] [address] [place] [address] Dec, [facility] [address] [facility] [id number] [address] [place] [phone] Nov, Arthritis M19.90 and Deficie ncy of other specified B group vitamins E53.8 [facility] [address] [facility] [id number] [address] [place] [id number] Nov, Arthritis M19.90 [facility] [address] [facility] [id number] [address] [place] [id number] Nov, Hyperparathyroidism E21.3 [facility] [address] [facility] [id number] [address] [place] [phone] October, [facility] [address] [facility] [id number] [address] [place] [phone] October, Hyperparathyroidism E21.3 [facility] [address] [facility] [id number] [address] [place] [phone] October, [facility] [address] [facility] [id number] [address] [place] [phone] October, Renal insufficiency N28.9 an d Hyperparathyroidism E21.3 [facility] [address] [facility] [id number] [address] [place] [id number] October, [facility] [address] [facility] [id number] [address] [place] [id number] October, Renal insufficiency N28.9 an d Hyperparathyroidism E21.3 [facility] [address] [facility] [id number] [address] [place] [id number] October, Arthritis M19.90 [facility] [address] [facility] [id number] [address] [place] [phone] Sep, [facility] [id number] [place] [address] Sep, Lumbar neuritis M54.16 ; Tho racic abscess J86.9 and 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 [facility] [address] [facility] [id number] [address] [place] [id number] Sep, [facility] [address] [facility] [id number] [address] [place] [phone] Aug, Arthritis M19.90 [facility] [address] [facility] [id number] [address] [place] [id number] Aug, Hyperparathyroidism E21.3 [facility] [address] [facility] [id number] [address] [place] [phone] Aug, Hyperparathyroidism E21.3 [facility] [address] [facility] [id number] [address] [place] [id number] Aug, Arthritis M19.90 [facility] [id number] [place] [phone] Jul, Mass of throat R22.1 [facility] [address] [facility] [id number] [address] [place] [id number] Jul, [facility] [id number] [place] [address] 10 Jul, 2016 Arthritis M19.90 [facility] [address] [facility] [id number] [address] [place] [id number] Jun, Arthritis M19.90 [facility] [address] [facility] [id number] [address] [place] [phone] Jun, [facility] [id number] [address] [place] [id number] Jun, Renal insufficiency N28.9 an d 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 [facility] [address] [facility] [id number] [address] [place] [id number] 05 Jun, 2016 Encounter for immunization Z 23 ; Medicare welcome exam Z00.00 ; Arthritis M19.90 ; Medicare annual wellness visit, initial Z00.00 ; Medicare annual wellness visit, subsequent Z00.00 and 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 [facility] [address] [facility] [id number] [address] [place] [phone] 29 May, 2016 Renal insufficiency N28.9 an d 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 [facility] [address] [facility] [id number] [address] [place] [id number] 19 May, 2016 Renal insufficiency N28.9 [facility] [id number] [address] [place] [id number] 16 May, 2016 Renal insufficiency N28.9 [facility] [address] [facility] [id number] [address] [place] [id number] 14 May, 2016 [facility] [id number] [address] [place] [id number] 16 Apr, 2016 [facility] [address] [id number] Apr, [facility] [id number] [address] [place] [id number] 14 Apr, 2016 Mass of throat R22.1 [facility] [id number] [place] [address] [place] [address] 10 Apr, 2016 [facility] [address] [id number] [address] [place] [id number] 10 Apr, 2016 Mass of throat R22.1 [facility] [address] [id number] [address] [place] [id number] 04 Apr, 2016 Mass of throat R22.1 [facility] [address] [id number] [address] [place] [id number] Mar, [facility] [address] [id number] [address] [place] [phone] Mar, [facility] [address] [id number] [address] [place] [id number] Mar, [facility] [address] [facility] [id number] [address] [place] [phone] 24 Mar, 2016 Parathyroid abnormality E21. 5 and Encounter for immunization Z23 [facility] [address] [id number] [address] [place] [id number] 17 Mar, 2016 [facility] [address] [id number] [address] [place] [phone] 11 Mar, 2016 [facility] [address] [facility] [id number] [address] [place] [id number] 21 Feb, 2016 Renal insufficiency N28.9 an d Hyperparathyroidism E21.3 [facility] [address] [id number] [address] [place] [id number] 19 Feb, 2016 [facility] [address] [id number] [address] [place] [id number] 15 Feb, 2016 Renal insufficiency N28.9 an d Hyperparathyroidism E21.3 [facility] [address] [facility] [id number] [address] [place] [phone] 14 Feb, 2016 [facility] [address] [facility] [id number] [address] [place] [id number] 12 Feb, 2016 [facility] [address] [id number] [address] [place] [id number] Feb, [facility] [address] [id number] [address] [place] [id number] Jan, [facility] [address] [facility] [id number] [address] [place] [id number] Jan, Arthritis M19.90 ; Lumbago w ith sciatica, right side M54.41 and Other chronic pain G89.29 [facility] [address] [facility] [id number] [address] [place] [id number] Jan, [facility] [address] [facility] [id number] [address] [place] [id number] Dec, Arthritis M19.90 ; Lumbago w ith sciatica, right side M54.41 and Other chronic pain G89.29 [place] [address] [facility] [id number] [address] [place] [id number] Nov, Deficiency of other specifie d B group vitamins E53.8 ; Primary insomnia F51.01 ; Mood disorder F39 and Lumbago with sciatica, right side M54.41 [facility] [address] [facility] [id number] [address] [place] [id number] Nov, Hyperparathyroidism E21.3 [place] [address] [facility] [id number] [address] [place] [id number] Nov, Unspecified kidney failure N 19 and Hyperparathyroidism E21.3 [place] [address] [facility] [id number] [address] [place] [id number] October, Hyperparathyroidism E21.3 [facility] [address] [facility] [id number] [address] [place] [phone] October, [facility] [id number] [place] [id number] October, Hyperparathyroidism E21.3 [facility] [id number] [place] [id number] October, Hyperparathyroidism E21.3 [place] [id number] [place] [id number] 08 Sep, 2015 Hyperparathyroidism E21.3 ; Hypercholesterolemia E78.0 and Arthritis M19.90 [facility] [address] [facility] [id number] [address] [place] [id number] Aug, [facility] [id number] [place] [address] Aug, Deficiency of other specifie d B group vitamins E53.8 [facility] [address] [facility] [id number] [address] [place] [phone] Aug, [facility] [address] [phone] Jul, Urinary frequency R35.0 [facility] [address] [id number] Jul, Urinary frequency R35.0 [facility] [id number] [address] [place] [id number] Jul, [facility] [address] [id number] [address] [place] [id number] Jul, [facility] [address] [id number] [address] [place] [phone] Jun, Pain in left knee M25.562 [facility] [id number] [place] [id number] Jun, [facility] [id number] [address] [place] [phone] May, Swelling of left knee joint M25.462 [facility] [id number] [address] [place] [phone] May, [facility] [id number] [address] [place] [id number] May, [facility] [id number] [place] [id number] May, [facility] [address] [facility] [id number] [address] [place] [id number] Apr, Renal insufficiency N28.9 an d Chronic kidney disease, stage 4 (severe) N18.4 [facility] [address] [facility] [id number] [address] [place] [id number] Apr, Unspecified kidney failure N 19 [facility] [address] [id number] [address] [place] [phone] Apr, Unspecified kidney failure N 19 [facility] [address] [facility] [id number] [address] [place] [id number] Apr, [facility] [address] [facility] [id number] [address] [place] [id number] Apr, Hyperparathyroidism, unspeci fied 252.00 [facility] [address] [facility] [id number] [address] [place] [id number] Apr, [facility] [address] [facility] [id number] [address] [place] [phone] Mar, [facility] [address] [facility] [id number] [address] [place] [id number] Mar, [facility] [address] [facility] [id number] [address] [place] [id number] Mar, Hyperparathyroidism, unspeci fied 252.00 [facility] [address] [facility] [id number] [address] [place] [phone] Feb, [facility] [address] [facility] [id number] [address] [place] [id number] Feb, Otalgia 388.70 [facility] [address] [facility] [id number] [address] [place] [id number] Feb, [facility] [address] [facility] [id number] [address] [place] [id number] Feb, [facility] [address] [facility] [id number] [address] [place] [id number] Jan, [facility] [address] [id number] [address] [place] [phone] Jan, Hyperparathyroidism, unspeci fied 252.00 [facility] [address] [id number] [address] [place] [id number] Jan, [facility] [address] [id number] [address] [place] [id number] Jan, Other B-complex deficiencies 266.2 and Hyperparathyroidism, unspecified 252.00 [facility] [address] [id number] [address] [place] [id number] Jan, [facility] [address] [id number] [address] [place] [id number] Jan, [facility] [address] [id number] [address] [place] [phone] Jan, [facility] [address] [id number] [address] [place] [phone] Dec, [facility] [address] [id number] [address] [place] [phone] Dec, [facility] [address] [id number] [address] [place] [id number] Dec, [facility] [address] [id number] [address] [place] [id number] Nov, Routine check-up V70.0 and P re-op exam V72.84 [facility] [address] [id number] [address] [place] [phone] Nov, [facility] [address] [id number] [address] [place] [phone] Nov, [facility] [address] [id number] [address] [place] [id number] October, [facility] [address] [id number] [address] [place] [id number] October, Other B-complex deficiencies 266.2 [facility] [address] [id number] [address] [place] [address], [place] [address] October, [facility] [address] [id number] [address] [place] [phone] 14 Sep, 2014 [facility] [address] [id number] [address] [place] [id number] Sep, [facility] [address] [id number] [address] [place] [phone] 20 Aug, 2014 [facility] [address] [id number] [address] [place] [address], [place] [address] Aug, [facility] [address] [id number] [address] [place] [phone] Aug, [facility] [address] [id number] [address] [place] [phone] Aug, [facility] [address] [id number] [address] [place] [id number] Aug, [facility] [address] [id number] [address] [place] [id number] Aug, [facility] [address] [id number] [address] [place] [phone] 18 Jul, 2014 [facility] [address] [id number] [address] [place] [phone] Jul, [facility] [address] [id number] [address] [place] [id number] Jul, [facility] [address] [id number] [address] [place] [id number] Jul, [facility] [place] [facility] [address] [id number] [address] [place] [id number] Jul, [facility] [address] [id number] [address] [place] [id number] Jul, [facility] [address] [id number] [address] [place] [address], [place] [id number] Jul, 2014 [facility] [address] [id number] [address] [place] [address], [place] [id number] Jul, 2014 [facility] [address] [id number] [address] [place] [address], [place] [id number] Jul, 2014 [facility] [address] [id number] [address] [place] [address], [place] [id number] Jul, 2014 [facility] [address] [id number] [address] [place] [address], [place] [id number] Jul, 2014 [facility] [address] [id number] [address] [place] [address], [place] [id number] Jul, 2014 [facility] [address] [id number] [address] [place] [address], [place] [id number] Jul, [facility] [address] [id number] [address] [place] [address], [place] [id number] Jul, [facility] [address] [id number] [address] [place] [address], [place] [id number] Jun, [facility] [address] [id number] [address] [place] [address], [place] [id number] Jun, [facility] [address] [id number] [address] [place] [address], [place] [id number] Jun, [facility] [address] [id number] [address] [place] [address], [place] [id number] Jun, [facility] [address] [id number] [address] [place] [address], [place] [address] Jun, [facility] [address] [id number] [address] [place] [address], [place] [address] Jun, [facility] [address] [id number] [address] [place] [address], [place] [id number] Jun, [facility] [address] [id number] [address] [place] [address], [place] [id number] Jun, [facility] [address] [id number] [address] [place] [address], [place] [id number] Jun, [facility] [address] [id number] [address] [place] [address], [place] [id number] Jun, [facility] [address] [id number] [address] [place] [address], [place] [id number] Jun, [facility] [address] [id number] [address] [place] [address], [place] [id number] Jun, [facility] [address] [id number] [address] [place] [address], [place] [id number] Jun, [facility] [address] [id number] [address] [place] [address], [place] [id number] Jun, [facility] [address] [id number] [address] [place] [address], [place] [id number] May, [facility] [address] [id number] [address] [place] [address], [place] [id number] May, [facility] [address] [id number] [address] [place] [address], [place] [id number] May, [facility] [address] [id number] [address] [place] [address], [place] [id number] May, [facility] [address] [id number] [address] [place] [address], [place] [id number] Apr, [facility] [address] [id number] [address] [place] [address], [place] [id number] Apr, [facility] [address] [id number] [address] [place] [address], [place] [id number] Apr, [facility] [address] [id number] [address] [place] [address], [place] [address] Apr, [facility] [address] [id number] [address] [place] [address], [place] [address] Apr, [facility] [address] [id number] [address] [place] [address], [place] [address] Apr, [facility] [address] [id number] [address] [place] [address], [place] [address] Mar, [facility] [address] [id number] [address] [place] [address], [place] [address] Mar, [facility] [address] [id number] [address] [place] [address], [place] [address] Mar, [facility] [address] [id number] [address] [place] [address], [place] [address] Mar, [facility] [address] [id number] [address] [place] [address], [place] [address] Mar, [facility] [address] [id number] [address] [place] [address], [place] [address] Mar, [facility] [address] [id number] [address] [place] [address], [place] [address] Mar, [facility] [address] [id number] [address] [place] [address], [place] [address] Mar, [facility] [address] [id number] [address] [place] [address], [place] [address] Mar, [facility] [address] [id number] [address] [place] [address], [place] [address] Mar, [facility] [address] [id number] [address] [place] [address], [place] [address] Mar, [facility] [address] [id number] [address] [place] [address], [place] [address] Mar, [facility] [address] [id number] [address] [place] [address], [place] [address] Mar, [facility] [address] [id number] [address] [place] [address], [place] [address] Feb, [facility] [address] [id number] [address] [place] [address], [place] [address] 26 Feb, 2014 [facility] [address] [id number] [address] [place] [address], [place] [address] 23 Feb, 2014 [facility] [address] [id number] [address] [place] [address], [place] [address] Feb, [facility] [address] [id number] [address] [place] [address], [place] [address] 19 Feb, 2014 [facility] [address] [id number] [address] [place] [address], [place] [address] 19 Feb, 2014 [facility] [address] [id number] [address] [place] [address], [place] [address] 13 Feb, 2014 [facility] [address] [id number] [address] [place] [address], [place] [address] Feb, [facility] [address] [id number] [address] [place] [address], [place] [address] Feb, [facility] [address] [id number] [address] [place] [address], [place] [address] Feb, [facility] [address] [id number] [address] [place] [address], [place] [address] Jan, [facility] [address] [id number] [address] [place] [address], [place] [address] Jan, [facility] [address] [id number] [address] [place] [address], [place] [address] Dec, [facility] [address] [id number] [address] [place] [address], [place] [address] Dec, [facility] [address] [id number] [address] [place] [address], [place] [address] Dec, [facility] [address] [id number] [address] [place] [address], [place] [address] Dec, [facility] [address] [id number] [address] [place] [address], [place] [address] Dec, [facility] [address] [id number] [facility] [place] [address] Dec, [facility] [address] [id number] [facility] [place] [address] Nov, [facility] [address] [id number] [facility] [place] [address] Nov, [facility] [address] [id number] [address] [place] [address], [place] [address] Nov, [facility] [address] [id number] [address] [place] [address], [place] [address] Nov, [facility] [address] [id number] [address] [place] [address], [place] [address] October, [facility] [address] [id number] [address] [place] [address], [place] [address] October, [facility] [address] [id number] [address] [place] [address], [place] [address] October, [facility] [address] [id number] [address] [place] [address], [place] [address] October, [facility] [address] [id number] [address] [place] [address], [place] [address] October, [facility] [address] [id number] [address] [place] [address], [place] [address] October, [facility] [address] [id number] [address] [place] [address], [place] [address] October, [facility] [address] [id number] [address] [place] [address], [place] [address] October, [facility] [address] [id number] [address] [place] [address], [place] [address] October, [facility] [address] [id number] [address] [place] [address], [place] [address] October, [facility] [address] [id number] [address] [place] [address], [place] [address] October, [facility] [address] [id number] [address] [place] [address], [place] [address] October, [facility] [address] [id number] [address] [place] [address], [place] [address] October, [facility] [address] [id number] [address] [place] [address], [place] [address] October, [facility] [address] [id number] [address] [place] [address], [place] [address] October, [facility] [address] [id number] [address] [place] [address], [place] [address] October, [facility] [address] [id number] [address] [place] [address], [place] [address] Sep, [facility] [address] [id number] [address] [place] [address], [place] [address] Sep, [facility] [address] [id number] [address] [place] [address], [place] [address] Sep, [facility] [address] [id number] [address] [place] [address], [place] [address] Sep, [facility] [address] [id number] [address] [place] [address], [place] [address] Sep, [facility] [address] [id number] [address] [place] [address], [place] [address] Sep, [facility] [address] [id number] [address] [place] [address], [place] [address] Aug, [facility] [address] [id number] [address] [place] [address], [place] [address] Aug, [facility] [address] [id number] [address] [place] [address], [place] [address] Aug, [facility] [address] [id number] [address] [place] [address], [place] [address] Aug, [facility] [address] [id number] [address] [place] [address], [place] [address] 05 Aug, 2013 [facility] [address] [id number] [address] [place] [address], [place] [address] Aug, [facility] [address] [id number] [address] [place] [address], [place] [address] Jul, [facility] [address] [id number] [address] [place] [address], [place] [address] Jul, [facility] [address] [id number] [address] [place] [address], [place] [address] Jul, [facility] [address] [id number] [address] [place] [address], [place] [address] Jul, [facility] [address] [id number] [address] [place] [address], [place] [address] Jun, [facility] [address] [id number] [address] [place] [address], [place] [address] Jun, [facility] [address] [id number] [address] [place] [address], [place] [address] May, [facility] [address] [id number] [address] [place] [address], [place] [address] May, [facility] [address] [id number] [address] [place] [address], [place] [address] May, [facility] [address] [id number] [address] [place] [address], [place] [address] May, [facility] [address] [id number] [address] [place] [address], [place] [address] May, [facility] [address] [id number] [address] [place] [address], [place] [address] Apr, [facility] [address] [id number] [address] [place] [address], [place] [address] Apr, [facility] [address] [id number] [address] [place] [address], [place] [address] Apr, [facility] [address] [id number] [address] [place] [address], [place] [address] Apr, [facility] [address] [id number] [address] [place] [address], [place] [address] Apr, [facility] [address] [id number] [address] [place] [address], [place] [address] Apr, [facility] [address] [id number] [address] [place] [address], [place] [address] 15 Mar, 2013 [facility] [address] [id number] [address] [place] [address], [place] [address] 15 Mar, 2013 [facility] [address] [id number] [address] [place] [address], [place] [address] 14 Mar, 2013 [facility] [address] [id number] [address] [place] [address], [place] [address] 14 Mar, 2013 [facility] [address] [id number] [address] [place] [address], [place] [address] Mar, [facility] [address] [id number] [address] [place] [address], [place] [address] Mar, [facility] [address] [id number] [address] [place] [address], [place] [address] 23 Feb, 2013 [facility] [address] [id number] [address] [place] [address], [place] [address] Feb, [facility] [address] [id number] [address] [place] [address], [place] [address] Feb, [facility] [address] [id number] [address] [place] [address], [place] [address] Jan, [facility] [address] [id number] [address] [place] [address], [place] [address] Jan, [facility] [address] [id number] [address] [place] [address], [place] [address] Jan, [facility] [address] [id number] [address] [place] [address], [place] [address] Jan, [facility] [address] [id number] [address] [place] [address], [place] [address] Jan, [facility] [address] [id number] [address] [place] [address], [place] [address] Jan, [facility] [address] [id number] [address] [place] [address], [place] [address] Dec, [facility] [address] [id number] [address] [place] [address], [place] [address] Dec, [facility] [address] [id number] [address] [place] [address], [place] [address] Dec, [facility] [address] [id number] [address] [place] [address], [place] [address] Dec, [facility] [address] [id number] [address] [place] [address], [place] [address] Dec, [facility] [address] [id number] [address] [place] [address], [place] [address] Dec, [facility] [address] [id number] [address] [place] [address], [place] [address] Nov, [facility] [address] [id number] [address] [place] [address], [place] [address] Nov, [facility] [address] [id number] [address] [place] [address], [place] [address] Nov, [facility] [address] [id number] [address] [place] [address], [place] [address] Nov, [facility] [address] [id number] [address] [place] [address], [place] [address] Nov, [facility] [address] [id number] [address] [place] [address], [place] [address] Nov, [facility] [address] [id number] [address] [place] [address], [place] [address] October, [facility] [address] [id number] [address] [place] [address], [place] [address] October, [facility] [address] [id number] [address] [place] [address], [place] [address] October, [facility] [address] [id number] [address] [place] [address], [place] [address] October, [facility] [address] [id number] [address] [place] [address], [place] [address] October, [facility] [address] [id number] [address] [place] [address], [place] [address] 30 Sep, 2012 [facility] [address] [id number] [address] [place] [address], [place] [address] 23 Sep, 2012 [facility] [address] [id number] [address] [place] [address], [place] [address] Sep, [facility] [address] [id number] [address] [place] [address], [place] [address] Sep, [facility] [address] [id number] [address] [place] [address], [place] [address] Sep, [facility] [address] [id number] [address] [place] [address], [place] [address] 26 Aug, 2012 [facility] [address] [id number] [address] [place] [address], [place] [address] Aug, [facility] [address] [id number] [address] [place] [address], [place] [address] Aug, [facility] [address] [id number] [address] [place] [address], [place] [address] Jul, [facility] [address] [id number] [address] [place] [address], [place] [address] 20 Jul, 2012 [facility] [address] [id number] [address] [place] [address], [place] [address] Jul, [facility] [address] [id number] [address] [place] [address], [place] [address] Jul, [facility] [address] [id number] [address] [place] [address], [place] [address] Jul, [facility] [address] [id number] [address] [place] [address], [place] [address] Jul, [facility] [address] [id number] [address] [place] [address], [place] [address] Jun, [facility] [address] [id number] [address] [place] [address], [place] [address] Apr, [facility] [address] [id number] [address] [place] [address], [place] [address] Apr, [facility] [address] [id number] [address] [place] [address], [place] [address] Apr, [facility] [address] [id number] [address] [place] [address], [place] [address] Apr, [facility] [address] [id number] [address] [place] [address], [place] [address] Mar, [facility] [address] [id number] [address] [place] [address], [place] [address] Mar, [facility] [address] [id number] [address] [place] [address], [place] [address] Mar, [facility] [address] [id number] [address] [place] [address] Mar, [facility] [address] [id number] [address] [place] [id number] Mar, [facility] [address] [id number] [address] [place] [address], [place] [address] Feb, [facility] [address] [id number] [address] [place] [address], [place] [address] Jan, [facility] [address] [id number] [address] [place] [address], [place] [address] Jan, [facility] [address] [id number] [address] [place] [id number] Jan, [facility] [address] [id number] [address] [place] [id number] Dec, [facility] [address] [id number] [address] [place] [id number] Nov, [facility] [address] [id number] [address] [place] [address] Nov, [facility] [address] [id number] [address] [place] [id number] Nov, [facility] [address] [id number] [address] [place] [address] Nov, [facility] [address] [id number] [address] [place] [id number] Nov, [facility] [address] [id number] [address] [place] [id number] October, [facility] [address] [id number] [address] [place] [id number] October, [facility] [address] [id number] [address] [place] [id number] October, [facility] [address] [id number] [address] [place] [id number] October, [facility] [address] [id number] [address] [place] [id number] October, IMMUNIZATIONS No Known Immunizations SOCIAL HISTORY Never Assessed REASON FOR VISIT Controlled Med Refill 11/12/17 PLAN OF CARE VITAL SIGNS MEDICATIONS Medication Instructions Dosage Frequency Start Date End Date Duration S tatus Hydrocodone-Acetaminophen 10-325 MG Orally 3 times a day 1 tablet a s needed 8h October, 28 days Active Zolpidem Tartrate 10 mg Orally Once [...]
[2020-01-25] MEDS ORDERED: ceFAZolin INJECTION 1,000 MG ONE (08:05)
[2020-01-25] MEDS ORDERED: fentaNYL INJECTION 100 MCG/2 ML AMP ONE (08:05)
[2020-01-25] MEDS ORDERED: WATER (STERILE) FOR INJECTION 10 ML ONE (08:05)
--- OUTSIDE RECORDS SUMMARY | 2020-01-25 08:05 | XMS REPORT ---
Author Author Velma CORDERO Organization [facility] Address [address] [place] [address] Care Team Providers Care Manager Property Name Role Phone STEPHAN CORDERO Unavailable PROBLEMS Type Condition ICD9-CM Code [id number] Code Onset Dates Condition S tatus SNOMED Code Problem Hypercholesteremia E78.0 Active 1 2383170 Problem Arthritis M19.90 Active 7153812 Problem Hyperparathyroidism E21.3 Active 60648209 Problem Primary insomnia F51.01 Active 397 2004 Problem Myalgia M79.1 Active 46827901 Problem Chronic kidney disease, stage 4 (severe) N18.4 Active 974138868 Problem BPV (benign positional vertigo), bilateral H81.13 Active 856520910 Problem Corns L84 Active 848503196 Problem Mood disorder F39 Active 855649 05 Problem 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 Active 30712724 Problem 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 Active 44059886 ALLERGIES No Information ENCOUNTERS Encounter Location Date Diagnosis [place] [address] [place] [id number] [address] [place] [phone] Dec, Labyrinthitis of left ear H8 3.02 [place] [address] [place] [id number] [address] [place] [address] Nov, Arthritis M19.90 [facility] [address] [facility] [id number] [address] [place] [address] Nov, Labyrinthitis of left ear H8 3.02 [place] [id number] [place] [id number] [address] [place] [address] Nov, BMI 40.0-44.9, adult Z68.41 ; Chronic kidney disease, stage 4 (severe) N18.4 and Acute right-sided thoracic back pain M54.6 [place] [address] [place] [id number] [address] [place] [address] October, Labyrinthitis of left ear H8 3.02 and Arthritis M19.90 [facility] [address] [place] [id number] [address] [place] [address] Sep, BPV (benign positional verti go), bilateral H81.13 ; Dysfunction of left eustachian tube H69.82 and BMI 40.0-44.9, adult Z68.41 [place] [address] [place] [id number] [place] [address] Sep, Labyrinthitis of left ear H8 3.02 and Arthritis M19.90 [place] [address] [place] [id number] [address] [place] [address] Sep, [place] [address] [place] [id number] [place] [phone] Sep, [place] [address] [address] Sep, Chronic kidney disease, stag e 4 (severe) N18.4 [place] [address] [place] [id number] [address] [place] [address] Sep, Chronic kidney disease, stag e 4 (severe) N18.4 [place] [address] [place] [id number] [address] [place] [address] Aug, Labyrinthitis of left ear H8 3.02 and Arthritis M19.90 [place] [address] [place] [id number] [address] [place] [address] Aug, [place] [address] [place] [id number] [address] [place] [address] Jul, [place] [address] [place] [id number] [address] [place] [address] Jul, Arthritis M19.90 and Labyrin thitis of left ear H83.02 [place] [address] [place] [address] [place] [address] 08 Jul, 2017 [place] [address] [address] Jun, [place] [address] [address] Jun, Arthritis M19.90 and Labyrin thitis of left ear H83.02 [place] [address] [address] Jun, Pre-op evaluation Z01.818 ; BMI 40.0-44.9, adult Z68.41 and Encounter for immunization Z23 [place] [address] [address] May, Arthritis M19.90 and Labyrin thitis of left ear H83.02 [place] [address] [address] Apr, Labyrinthitis of left ear H8 3.02 [place] [address] [address] Apr, Arthritis M19.90 and Labyrin thitis of left ear H83.02 [place] [address] [address] Mar, Arthritis M19.90 and Labyrin thitis of left ear H83.02 [place] [address] [address] Mar, Chronic kidney disease, stag e 4 (severe) N18.4 [place] [address] [address] Feb, Arthritis M19.90 and Labyrin thitis of left ear H83.02 [place] [address] [place] [id number] [address] [place] [address] Jan, Labyrinthitis of left ear H8 3.02 and 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 [facility] [address] [id number] [address] [place] [address], [place] [address] Dec, Arthritis M19.90 [facility] [address] [id number] [address] [place] [address] Dec, BPV (benign positional verti go), bilateral H81.13 [facility] [address] [id number] [address] [place] [address] Dec, [facility] [address] [id number] [address] [place] [address] Dec, [facility] [address] [facility] [id number] [address] [place] [address] Dec, [facility] [address] [facility] [id number] [address] [place] [address] Nov, Arthritis M19.90 and Deficie ncy of other specified B group vitamins E53.8 [facility] [address] [id number] [address] [place] [address], [place] [address] Nov, Arthritis M19.90 [facility] [address] [facility] [id number] [address] [place] [address], [place] [address] Nov, Hyperparathyroidism E21.3 [facility] [address] [facility] [id number] [address] [place] [address] October, [facility] [address] [id number] [address] [place] [address] October, Hyperparathyroidism E21.3 [facility] [address] [id number] [address] [place] [address] October, [facility] [address] [facility] [id number] [address] [place] [address] October, Renal insufficiency N28.9 an d Hyperparathyroidism E21.3 [facility] [address] [id number] [address] [place] [address] October, [facility] [address] [place] [id number] [address] [place] [address] October, Renal insufficiency N28.9 an d Hyperparathyroidism E21.3 [facility] [address] [facility] [id number] [address] [place] [address] October, Arthritis M19.90 [facility] [address] [place] [id number] [address] [place] [address] Sep, [facility] [address] [address] Sep, Lumbar neuritis M54.16 ; Tho racic abscess J86.9 and 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 [facility] [address] [facility] [id number] [address] [place] [address] Sep, [facility] [address] [address] Aug, Arthritis M19.90 [facility] [address] [place] [id number] [address] [place] [address] Aug, Hyperparathyroidism E21.3 [facility] [address] [address] Aug, Hyperparathyroidism E21.3 [facility] [address] [place] [id number] [place] [address] Aug, Arthritis M19.90 [facility] [address] [place] [id number] [address] [place] [address] Jul, Mass of throat R22.1 [facility] [address] [facility] [id number] [address] [place] [address] Jul, [facility] [id number] [place] [address] Jul, Arthritis M19.90 [facility] [address] [place] [id number] [address] [place] [address] Jun, Arthritis M19.90 [facility] [address] [facility] [id number] [address] [place] [address] 13 Jun, 2016 [facility] [address] [facility] [id number] [address] [place] [address] 09 Jun, 2016 Renal insufficiency N28.9 an d 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 [facility] [address] [facility] [id number] [address] [place] [address] 05 Jun, 2016 Medicare welcome exam Z00.00 ; Encounter for immunization Z23 ; Arthritis M19.90 ; Medicare annual wellness visit, initial Z00.00 ; Medicare annual wellness visit, subsequent Z00.00 and 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 [facility] [address] [facility] [id number] [address] [place] [address] 29 May, 2016 Renal insufficiency N28.9 an d 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 [facility] [address] [facility] [id number] [address] [place] [address] May, Renal insufficiency N28.9 [facility] [address] [facility] [id number] [address] [place] [id number] 16 May, 2016 Renal insufficiency N28.9 [facility] [address] [facility] [id number] [address] [place] [address] 14 May, 2016 [facility] [address] [facility] [id number] [address] [place] [address] 16 Apr, 2016 [facility] [address] [facility] [id number] [address] [place] [address] 16 Apr, 2016 [facility] [address] [facility] [id number] [address] [place] [address] 14 Apr, 2016 Mass of throat R22.1 [facility] [address] [facility] [id number] [address] [place] [address] 10 Apr, 2016 [facility] [address] [facility] [id number] [address] [place] [address] 10 Apr, 2016 Mass of throat R22.1 [facility] [address] [place] [id number] [place] [address] Apr, Mass of throat R22.1 [facility] [address] [place] [id number] [place] [phone] Mar, [facility] [address] [place] [id number] [address] [place] [address] Mar, [facility] [address] [place] [id number] [place] [address] Mar, [facility] [address] [facility] [id number] [address] [place] [address] Mar, Parathyroid abnormality E21. 5 and Encounter for immunization Z23 [facility] [address] [place] [id number] [place] [address] Mar, [facility] [address] [place] [id number] [address] [place] [address] Mar, [facility] [address] [place] [id number] [address] [place] [address] 21 Feb, 2016 Renal insufficiency N28.9 an d Hyperparathyroidism E21.3 [facility] [address] [place] [id number] [place] [address] 19 Feb, 2016 [facility] [address] [facility] [id number] [address] [place] [address] 15 Feb, 2016 Renal insufficiency N28.9 an d Hyperparathyroidism E21.3 [facility] [address] [facility] [id number] [address] [place] [address] 14 Feb, 2016 [facility] [address] [facility] [id number] [address] [place] [address] 12 Feb, 2016 [facility] [address] [facility] [id number] [address] [place] [address] 09 Feb, 2016 [facility] [address] [facility] [id number] [address] [place] [id number] 17 Jan, 2016 [facility] [address] [facility] [id number] [address] [place] [address] Jan, Arthritis M19.90 ; Lumbago w ith sciatica, right side M54.41 and Other chronic pain G89.29 [facility] [address] [facility] [id number] [address] [place] [address] Jan, [facility] [address] [facility] [id number] [address] [place] [address] Dec, Arthritis M19.90 ; Lumbago w ith sciatica, right side M54.41 and Other chronic pain G89.29 [facility] [address] [facility] [id number] [address] [place] [address] 16 Nov, 2015 Deficiency of other specifie d B group vitamins E53.8 ; Primary insomnia F51.01 ; Mood disorder F39 and Lumbago with sciatica, right side M54.41 [place] [address] [facility] [id number] [address] [place] [address] Nov, Hyperparathyroidism E21.3 [place] [address] [facility] [id number] [address] [place] [address] Nov, Unspecified kidney failure N 19 and Hyperparathyroidism E21.3 [place] [address] [facility] [id number] [address] [place] [address] October, Hyperparathyroidism E21.3 [place] [address] [place] [id number] [place] [address] October, [facility] [address] [facility] [id number] [address] [place] [address] October, Hyperparathyroidism E21.3 [facility] [address] [facility] [id number] [address] [place] [address] October, Hyperparathyroidism E21.3 [place] [address] [facility] [id number] [address] [place] [address] Sep, Hyperparathyroidism E21.3 ; Hypercholesterolemia E78.0 and Arthritis M19.90 [place] [id number] [place] [id number] [address] [place] [address] Aug, [facility] [address] [facility] [id number] [address] [place] [address] Aug, Deficiency of other specifie d B group vitamins E53.8 [facility] [address] [facility] [id number] [address] [place] [address] Aug, [facility] [address] [facility] [id number] [address] [place] [address] Jul, Urinary frequency R35.0 [facility] [address] [facility] [id number] [address] [place] [address] Jul, Urinary frequency R35.0 [facility] [address] [facility] [id number] [address] [place] [address] Jul, [facility] [address] [place] [id number] [address] [place] [address] Jul, [facility] [address] [place] [id number] [place] [address] Jun, Pain in left knee M25.562 [facility] [address] [facility] [id number] [address] [place] [address] Jun, [facility] [address] [place] [id number] [address] [place] [address] May, Swelling of left knee joint M25.462 [facility] [address] [facility] [id number] [address] [place] [address] May, [facility] [address] [facility] [id number] [address] [place] [address] May, [facility] [address] [place] [id number] [address] [place] [address] May, [facility] [address] [place] [id number] [address] [place] [address] Apr, Renal insufficiency N28.9 an d Chronic kidney disease, stage 4 (severe) N18.4 [facility] [address] [place] [id number] [address] [place] [address] Apr, Unspecified kidney failure N 19 [facility] [address] [id number] [address] [place] [address] Apr, Unspecified kidney failure N 19 [facility] [address] [id number] [address] [place] [address] Apr, [facility] [address] [id number] [address] [place] [address] Apr, Hyperparathyroidism, unspeci fied 252.00 [facility] [address] [id number] [address] [place] [address] Apr, [facility] [address] [id number] [address] [place] [address] Mar, [facility] [address] [id number] [address] [place] [address] Mar, [facility] [address] [id number] [address] [place] [address] Mar, Hyperparathyroidism, unspeci fied 252.00 [facility] [address] [id number] [address] [place] [address] Feb, [facility] [address] [facility] [id number] [address] [place] [address] Feb, Otalgia 388.70 [facility] [address] [id number] [address] [place] [address] Feb, [facility] [address] [facility] [id number] [address] [place] [address] Feb, [facility] [address] [id number] [address] [place] [address] Jan, [facility] [address] [id number] [address] [place] [address] Jan, Hyperparathyroidism, unspeci fied 252.00 [facility] [address] [id number] [address] [place] [address] Jan, [facility] [address] [id number] [address] [place] [address] Jan, Other B-complex deficiencies 266.2 and Hyperparathyroidism, unspecified 252.00 [facility] [address] [id number] [address] [place] [address] Jan, [facility] [address] [id number] [address] [place] [address] Jan, [facility] [address] [id number] [address] [place] [id number] Jan, [facility] [address] [id number] [address] [place] [address] Dec, [facility] [address] [id number] [address] [place] [address] Dec, [facility] [address] [id number] [address] [place] [address] Dec, [facility] [address] [id number] [address] [place] [address] Nov, Routine check-up V70.0 and P re-op exam V72.84 [facility] [address] [id number] [address] [place] [address] Nov, [facility] [address] [id number] [address] [place] [address] Nov, [facility] [address] [id number] [address] [place] [address] October, [facility] [address] [id number] [address] [place] [phone] October, Other B-complex deficiencies 266.2 [facility] [address] [id number] [address] [place] [phone] October, [facility] [address] [id number] [address] [place] [id number] 14 Sep, 2014 [facility] [address] [id number] [address] [place] [address], [place] [address] 13 Sep, 2014 [facility] [place] [facility] [address] [id number] [address] [place] [address], [place] [address] 20 Aug, 2014 [facility] [place] [facility] [address] [id number] [address] [place] [address], [place] [address] 20 Aug, 2014 [facility] [place] [facility] [address] [id number] [address] [place] [address], [place] [address] 17 Aug, 2014 [facility] [place] [facility] [address] [id number] [address] [place] [address], [place] [address] 17 Aug, 2014 [facility] [place] [facility] [address] [id number] [address] [place] [address], [place] [address] 11 Aug, 2014 [facility] [place] [facility] [address] [id number] [address] [place] [address], [place] [phone] Aug, [facility] [place] [facility] [address] [id number] [address] [place] [address], [place] [address] 18 Jul, 2014 [facility] [place] [facility] [address] [id number] [address] [place] [address], [place] [address] 18 Jul, 2014 [facility] [place] [facility] [address] [id number] [address] [place] [address], [place] [address] 17 Jul, 2014 [facility] [place] [facility] [address] [id number] [address] [place] [address], [place] [id number] 17 Jul, 2014 [facility] [place] [facility] [address] [id number] [address] [place] [address], [place] [address] 12 Jul, 2014 [facility] [place] [facility] [address] [id number] [address] [place] [address], [place] [address] 12 Jul, 2014 [facility] [place] [facility] [address] [id number] [address] [place] [address], [place] [address] 10 Jul, 2014 [facility] [place] [facility] [address] [id number] [address] [place] [address], [place] [address] 10 Jul, 2014 [facility] [place] [facility] [address] [id number] [address] [place] [address], [place] [address] Jul, 2014 [facility] [address] [id number] [address] [place] [address], [place] [id number] Jul, 2014 [facility] [place] [facility] [address] [id number] [address] [place] [address], [place] [address] Jul, 2014 [facility] [address] [id number] [address] [place] [address], [place] [id number] Jul, 2014 [facility] [address] [id number] [address] [place] [address], [place] [address] Jul, [facility] [address] [id number] [address] [place] [address], [place] [id number] Jul, [facility] [address] [id number] [address] [place] [address], [place] [address] Jun, [facility] [address] [id number] [address] [place] [address], [place] [id number] Jun, [facility] [address] [id number] [address] [place] [address], [place] [address] Jun, [facility] [address] [id number] [address] [place] [address], [place] [id number] Jun, [facility] [address] [id number] [address] [place] [id number] Jun, [facility] [address] [id number] [address] [place] [id number] Jun, [facility] [address] [id number] [address] [place] [address], [place] [id number] Jun, [facility] [address] [id number] [address] [place] [address], [place] [id number] Jun, [facility] [address] [id number] [address] [place] [id number] Jun, [facility] [address] [id number] [address] [place] [id number] Jun, [facility] [address] [id number] [address] [place] [address], [place] [address] Jun, [facility] [address] [id number] [address] [place] [address], [place] [id number] Jun, [facility] [address] [id number] [address] [place] [address], [place] [id number] Jun, [facility] [address] [id number] [address] [place] [address], [place] [id number] Jun, [facility] [address] [id number] [address] [place] [address], [place] [address] May, [facility] [address] [id number] [address] [place] [address], [place] [address] May, [facility] [address] [id number] [address] [place] [address], [place] [address] May, [facility] [address] [id number] [address] [place] [address], [place] [id number] May, [facility] [address] [id number] [address] [place] [address], [place] [address] Apr, [facility] [address] [id number] [address] [place] [address], [place] [id number] Apr, [facility] [address] [id number] [address] [place] [address], [place] [address] Apr, [facility] [address] [id number] [address] [place] [address], [place] [id number] Apr, [facility] [address] [id number] [address] [place] [address], [place] [address] Apr, [facility] [address] [id number] [address] [place] [address], [place] [id number] Apr, [facility] [address] [id number] [address] [place] [address], [place] [id number] 24 Mar, 2014 [facility] [address] [id number] [address] [place] [address], [place] [id number] 24 Mar, 2013 [facility] [address] [id number] [address] [place] [address], [place] [id number] Mar, [facility] [address] [id number] [address] [place] [address], [place] [id number] 22 Mar, 2014 [facility] [address] [id number] [address] [place] [address], [place] [id number] 15 Mar, 2014 [facility] [address] [id number] [address] [place] [address], [place] [id number] 15 Mar, 2014 [facility] [address] [id number] [address] [place] [address], [place] [address] Mar, [facility] [address] [id number] [address] [place] [address], [place] [address] 13 Mar, 2013 [facility] [address] [id number] [address] [place] [address], [place] [address] 07 Mar, 2013 [facility] [address] [id number] [address] [place] [address], [place] [id number] 07 Mar, 2014 [facility] [address] [id number] [address] [place] [address], [place] [id number] 07 Mar, 2013 [facility] [address] [id number] [address] [place] [address], [place] [address] 07 Mar, 2014 [facility] [address] [id number] [address] [place] [address], [place] [id number] 06 Mar, 2013 [facility] [address] [id number] [address] [place] [address], [place] [id number] 26 Feb, 2013 [facility] [address] [id number] [address] [place] [address], [place] [address] Feb, 2013 [facility] [address] [id number] [address] [place] [address], [place] [id number] 23 Feb, 2013 [facility] [address] [id number] [address] [place] [address], [place] [id number] 23 Feb, 2014 [facility] [address] [id number] [address] [place] [address] 19 Feb, 2014 [facility] [address] [id number] [address] [place] [address], [place] [id number] 19 Feb, 2014 [facility] [address] [id number] [address] [place] [address], [place] [id number] 13 Feb, 2014 [facility] [address] [id number] [address] [place] [address], [place] [address] 13 Feb, 2014 [facility] [address] [id number] [address] [place] [address], [place] [address] Feb, [facility] [address] [id number] [address] [place] [address], [place] [address] Feb, [facility] [address] [id number] [address] [place] [address], [place] [address] Jan, [facility] [address] [id number] [address] [place] [address], [place] [address] Jan, [facility] [address] [id number] [address] [place] [address], [place] [address] Dec, [facility] [address] [id number] [address] [place] [address], [place] [address] Dec, [facility] [address] [id number] [address] [place] [address], [place] [address] Dec, [facility] [address] [id number] [address] [place] [address], [place] [address] Dec, [facility] [address] [id number] [address] [place] [address], [place] [address] Dec, [facility] [address] [id number] [address] [place] [address], [place] [address] Dec, [facility] [address] [id number] [address] [place] [address], [place] [address] 16 Nov, 2013 [facility] [address] [id number] [address] [place] [address], [place] [address] Nov, [facility] [address] [id number] [facility] [place] [address] Nov, [facility] [address] [id number] [facility] [place] [address] Nov, [facility] [address] [id number] [facility] [place] [address] October, [facility] [address] [id number] [facility] [place] [address] October, [facility] [address] [id number] [address] [place] [address], [place] [address] October, [facility] [address] [id number] [address] [place] [address], [place] [address] October, [facility] [address] [id number] [address] [place] [address], [place] [address] October, [facility] [address] [id number] [address] [place] [address], [place] [address] October, [facility] [address] [id number] [address] [place] [address], [place] [address] October, [facility] [address] [id number] [address] [place] [address], [place] [address] October, [facility] [address] [id number] [address] [place] [address], [place] [address] October, [facility] [address] [id number] [address] [place] [address], [place] [address] October, [facility] [address] [id number] [address] [place] [address], [place] [address] October, [facility] [address] [id number] [address] [place] [address], [place] [address] October, [facility] [address] [id number] [address] [place] [address], [place] [address] October, [facility] [address] [id number] [facility] [place] [address] October, [facility] [address] [id number] [facility] [place] [address] October, [facility] [address] [id number] [address] [place] [address], [place] [address] October, [facility] [address] [id number] [address] [place] [address], [place] [address] Sep, [facility] [address] [id number] [address] [place] [address], [place] [address] Sep, [facility] [address] [id number] [address] [place] [address], [place] [address] Sep, [facility] [address] [id number] [address] [place] [address], [place] [address] Sep, [facility] [address] [id number] [address] [place] [address], [place] [address] Sep, [facility] [address] [id number] [address] [place] [address], [place] [address] Sep, [facility] [address] [id number] [address] [place] [address], [place] [address] Aug, [facility] [address] [id number] [address] [place] [address], [place] [address] Aug, [facility] [address] [id number] [address] [place] [address], [place] [address] Aug, [facility] [address] [id number] [address] [place] [address], [place] [address] Aug, [facility] [address] [id number] [address] [place] [address], [place] [address] Aug, [facility] [address] [id number] [address] [place] [address], [place] [address] Aug, [facility] [address] [id number] [address] [place] [address], [place] [address] Jul, [facility] [address] [id number] [address] [place] [address], [place] [address] Jul, [facility] [address] [id number] [address] [place] [address], [place] [address] Jul, [facility] [address] [id number] [address] [place] [address], [place] [address] Jul, [facility] [address] [id number] [address] [place] [address], [place] [address] Jun, [facility] [address] [id number] [address] [place] [address], [place] [address] Jun, [facility] [address] [id number] [address] [place] [address], [place] [address] May, [facility] [address] [id number] [address] [place] [address], [place] [address] May, [facility] [address] [id number] [address] [place] [address], [place] [address] May, [facility] [address] [id number] [address] [place] [address], [place] [address] May, [facility] [address] [id number] [address] [place] [address], [place] [address] May, [facility] [address] [id number] [address] [place] [address], [place] [address] Apr, [facility] [address] [id number] [address] [place] [address], [place] [address] Apr, [facility] [address] [id number] [address] [place] [address], [place] [address] Apr, [facility] [address] [id number] [address] [place] [address], [place] [address] Apr, [facility] [address] [id number] [address] [place] [address], [place] [address] Apr, [facility] [address] [id number] [address] [place] [address], [place] [address] 04 Apr, 2013 [facility] [address] [id number] [address] [place] [address], [place] [address] 15 Mar, 2013 [facility] [address] [id number] [address] [place] [address], [place] [address] 15 Mar, 2013 [facility] [address] [id number] [address] [place] [address], [place] [address] 14 Mar, 2013 [facility] [address] [id number] [address] [place] [address], [place] [address] 14 Mar, 2013 [facility] [address] [id number] [address] [place] [address], [place] [address] Mar, [facility] [address] [id number] [address] [place] [address], [place] [address] Mar, [facility] [address] [id number] [address] [place] [address], [place] [address] 23 Feb, 2013 [facility] [address] [id number] [address] [place] [address], [place] [address] 19 Feb, 2013 [facility] [address] [id number] [address] [place] [address], [place] [address] 04 Feb, 2013 [facility] [address] [id number] [address] [place] [address], [place] [address] 30 Jan, 2013 [facility] [address] [id number] [address] [place] [address], [place] [address] Jan, [facility] [address] [id number] [address] [place] [address], [place] [address] Jan, [facility] [address] [id number] [address] [place] [address], [place] [address] Jan, [facility] [address] [id number] [address] [place] [address], [place] [address] Jan, [facility] [address] [id number] [address] [place] [address], [place] [address] Jan, [facility] [address] [id number] [address] [place] [address], [place] [address] Dec, [facility] [address] [id number] [address] [place] [address], [place] [address] Dec, [facility] [address] [id number] [address] [place] [address], [place] [address] Dec, [facility] [address] [id number] [address] [place] [address], [place] [address] Dec, [facility] [address] [id number] [address] [place] [address], [place] [address] Dec, [facility] [address] [id number] [address] [place] [address], [place] [address] Dec, [facility] [address] [id number] [address] [place] [address], [place] [address] Nov, [facility] [address] [id number] [address] [place] [address], [place] [address] Nov, [facility] [address] [id number] [address] [place] [address], [place] [address] Nov, [facility] [address] [id number] [address] [place] [address], [place] [address] Nov, [facility] [address] [id number] [address] [place] [address], [place] [address] Nov, [facility] [address] [id number] [address] [place] [address], [place] [address] Nov, [facility] [address] [id number] [address] [place] [address], [place] [address] October, [facility] [address] [id number] [address] [place] [address], [place] [address] October, [facility] [address] [id number] [address] [place] [address], [place] [address] October, [facility] [address] [id number] [address] [place] [address], [place] [address] 15 Oct, 2012 [facility] [address] [id number] [address] [place] [address], [place] [address] October, [facility] [address] [id number] [address] [place] [address], [place] [address] 30 Sep, 2012 [facility] [address] [id number] [address] [place] [address], [place] [address] Sep, [facility] [address] [id number] [address] [place] [address], [place] [address] Sep, [facility] [address] [id number] [address] [place] [address], [place] [address] 18 Sep, 2012 [facility] [address] [id number] [address] [place] [address], [place] [address] Sep, [facility] [address] [id number] [address] [place] [address], [place] [address] Aug, [facility] [address] [id number] [address] [place] [address], [place] [address] Aug, [facility] [address] [id number] [address] [place] [address], [place] [address] 04 Aug, 2012 [facility] [address] [id number] [address] [place] [address], [place] [address] Jul, [facility] [address] [id number] [address] [place] [address], [place] [address] 20 Jul, 2012 [facility] [address] [id number] [address] [place] [address], [place] [address] 11 Jul, 2012 [facility] [address] [id number] [address] [place] [address], [place] [address] 08 Jul, 2012 [facility] [address] [id number] [address] [place] [address], [place] [address] 06 Jul, 2012 [facility] [address] [id number] [address] [place] [address], [place] [address] Jul, [facility] [address] [id number] [address] [place] [address], [place] [address] Jun, [facility] [address] [id number] [address] [place] [address], [place] [address] Apr, [facility] [address] [id number] [address] [place] [address], [place] [address] Apr, [facility] [address] [id number] [address] [place] [address], [place] [address] Apr, [facility] [address] [id number] [address] [place] [address], [place] [address] Apr, [facility] [address] [id number] [address] [place] [address], [place] [address] Mar, [facility] [address] [id number] [address] [place] [address], [place] [address] Mar, [facility] [address] [id number] [address] [place] [address], [place] [address] Mar, [facility] [address] [id number] [address] [place] [address], [place] [address] Mar, [facility] [address] [id number] [address] [place] [id number] Mar, [facility] [address] [id number] [address] [place] [id number] Feb, [facility] [address] [id number] [address] [place] [id number] Jan, [facility] [address] [id number] [address] [place] [address], [place] [address] Jan, [facility] [address] [id number] [address] [place] [id number] Jan, [facility] [address] [id number] [address] [place] [id number] Dec, [facility] [address] [id number] [address] [place] [id number] Nov, [facility] [address] [id number] [address] [place] [id number] Nov, [facility] [address] [id number] [address] [place] [id number] Nov, [facility] [address] [id number] [address] [place] [id number] Nov, [facility] [address] [id number] [address] [place] [id number] Nov, [facility] [address] [id number] [address] [place] [id number] October, [facility] [address] [id number] [address] [place] [id number] October, [facility] [address] [id number] [address] [place] [id number] October, [facility] [address] [id number] [address] [place] [id number] October, [facility] [address] [id number] [address] [place] [id number] October, IMMUNIZATIONS No Known Immunizations SOCIAL HISTORY Never Assessed REASON FOR VISIT Lab (walk-in) PLAN OF CARE VITAL SIGNS MEDICATIONS Unknown Medications RESULTS No Results PROCEDURES Procedure Date Ordered Result Body Site LAB NOT BILLED BY [facility] September 28, 2017 INSTRUCTIONS MEDICATIONS ADMINISTERED No Known Medications [...]
--- OUTSIDE RECORDS SUMMARY | 2020-01-25 08:05 | XMS REPORT ---
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 Name Role Phone STEPHAN CORDERO Unavailable PROBLEMS Type Condition ICD9-CM Code EKX82-EY Code Onset Dates Condition S tatus SNOMED Code Problem Hypercholesteremia E78.0 Active 1 9983314 Problem Arthritis M19.90 Active 3357515 Problem Hyperparathyroidism E21.3 Active 35814301 Problem Primary insomnia F51.01 Active 397 2004 Problem Myalgia M79.1 Active 86908320 Problem Chronic kidney disease, stage 4 (severe) N18.4 Active 722951919 Problem BPV (benign positional vertigo), bilateral H81.13 Active 724243165 Problem Corns L84 Active 825575379 Problem Mood disorder F39 Active 313491 05 Problem 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 Active 64894241 Problem 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0-44.9, adult Z68.41 ; Chronic kidney disease, stage 4 (severe) N18.4 and Acute right-sided thoracic back pain M54.6 [place] [address] [place] [id number] [place] [address] October, Labyrinthitis of left ear H8 3.02 and Arthritis M19.90 [facility] [address] [place] [id number] [place] [address] Sep, BPV (benign positional verti go), bilateral H81.13 ; Dysfunction of left eustachian tube H69.82 and BMI 40.0-44.9, adult Z68.41 [place] [address] [place] [id number] [place] [address] Sep, Labyrinthitis of left ear H8 3.02 and Arthritis M19.90 [place] [address] [place] [id number] [place] [address] Sep, [place] [address] [place] [id number] [place] [address] Sep, [place] [address] [address] Sep, Chronic kidney disease, stag e 4 (severe) N18.4 [place] [address] [place] [id number] [place] [address] Sep, Chronic kidney disease, stag e 4 (severe) N18.4 [place] [address] [place] [id number] [place] [address] Aug, Labyrinthitis of left ear H8 3.02 and Arthritis M19.90 [place] [address] [place] [id number] [place] [address] Aug, [place] [address] [place] [id number] [place] [address] Jul, [place] [address] [place] [id number] [place] [address] Jul, Arthritis M19.90 and Labyrin thitis of left ear H83.02 [place] [address] [place] [address] [place] [address] 08 Jul, 2017 [place] [address] [address] Jun, [place] [address] [address] Jun, Arthritis M19.90 and Labyrin thitis of left ear H83.02 [place] [address] [address] Jun, Pre-op evaluation Z01.818 ; BMI 40.0-44.9, adult Z68.41 and Encounter for immunization Z23 [place] [address] [address] May, Arthritis M19.90 and Labyrin thitis of left ear H83.02 [place] [address] [address] Apr, Labyrinthitis of left ear H8 3.02 [place] [address] [address] Apr, Arthritis M19.90 and Labyrin thitis of left ear H83.02 [place] [address] [address] Mar, Arthritis M19.90 and Labyrin thitis of left ear H83.02 [place] [address] [address] Mar, Chronic kidney disease, stag e 4 (severe) N18.4 [place] [address] [address] Feb, Arthritis M19.90 and Labyrin thitis of left ear H83.02 [place] [address] [place] [id number] [place] [address] Jan, Labyrinthitis of left ear H8 3.02 and 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 [facility] [address] [id number] [address] [place] [address], [place] [address] Dec, Arthritis M19.90 [facility] [address] [id number] [address] [place] [address] Dec, BPV (benign positional verti go), bilateral H81.13 [facility] [address] [id number] [address] [place] [address] Dec, [facility] [address] [id number] [address] [place] [address] Dec, [facility] [address] [facility] [id number] [address] [place] [address] Dec, [facility] [address] [facility] [id number] [address] [place] [address] Nov, Arthritis M19.90 and Deficie ncy of other specified B group vitamins E53.8 [facility] [address] [id number] [address] [place] [address], [place] [address] Nov, Arthritis M19.90 [facility] [address] [facility] [id number] [address] [place] [address], [place] [address] Nov, Hyperparathyroidism E21.3 [facility] [address] [facility] [id number] [address] [place] [address] October, [facility] [address] [id number] [address] [place] [address] October, Hyperparathyroidism E21.3 [facility] [address] [id number] [address] [place] [address] October, [facility] [address] [facility] [id number] [address] [place] [address] October, Renal insufficiency N28.9 an d Hyperparathyroidism E21.3 [facility] [address] [id number] [address] [place] [address] October, [facility] [address] [place] [id number] [address] [place] [address] October, Renal insufficiency N28.9 an d Hyperparathyroidism E21.3 [facility] [address] [facility] [id number] [address] [place] [address] October, Arthritis M19.90 [facility] [address] [place] [id number] [address] [place] [address] Sep, [facility] [address] [address] Sep, Lumbar neuritis M54.16 ; Tho racic abscess J86.9 and 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 [facility] [address] [facility] [id number] [address] [place] [address] Sep, [facility] [address] [address] Aug, Arthritis M19.90 [facility] [address] [place] [id number] [place] [address] Aug, Hyperparathyroidism E21.3 [facility] [address] [address] Aug, Hyperparathyroidism E21.3 [facility] [address] [place] [id number] [place] [address] Aug, Arthritis M19.90 [facility] [address] [place] [id number] [address] [place] [address] Jul, Mass of throat R22.1 [facility] [address] [facility] [id number] [address] [place] [address] Jul, [facility] [id number] [place] [address] Jul, Arthritis M19.90 [facility] [address] [place] [id number] [place] [address] Jun, Arthritis M19.90 [facility] [address] [facility] [id number] [address] [place] [address] 13 Jun, 2016 [facility] [address] [facility] [id number] [address] [place] [address] 09 Jun, 2016 Renal insufficiency N28.9 an d Parathyroid abnormality E21.5 [facility] [address] [facility] [id number] [address] [place] [address] 05 Jun, 2016 Medicare welcome exam Z00.00 ; Encounter for immunization Z23 ; Arthritis M19.90 ; Medicare annual wellness visit, initial Z00.00 ; Medicare annual wellness visit, subsequent Z00.00 and 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 [facility] [address] [facility] [id number] [address] [place] [address] 29 May, 2016 Renal insufficiency N28.9 an d Parathyroid abnormality E21.5 [facility] [address] [facility] [id number] [address] [place] [address] May, Renal insufficiency N28.9 [facility] [address] [facility] [id number] [address] [place] [address] 16 May, 2016 Renal insufficiency N28.9 [facility] [address] [facility] [id number] [address] [place] [address] 14 May, 2016 [facility] [address] [facility] [id number] [address] [place] [address] 16 Apr, 2016 [facility] [address] [facility] [id number] [address] [place] [address] 16 Apr, 2016 [facility] [address] [facility] [id number] [address] [place] [address] 14 Apr, 2016 Mass of throat R22.1 [facility] [address] [facility] [id number] [address] [place] [address] 10 Apr, 2016 [facility] [address] [facility] [id number] [address] [place] [address] 10 Apr, 2016 Mass of throat R22.1 [facility] [address] [place] [id number] [place] [address] Apr, Mass of throat R22.1 [facility] [address] [place] [id number] [place] [address] Mar, [facility] [address] [place] [id number] [place] [address] Mar, [facility] [address] [place] [id number] [place] [address] Mar, [facility] [address] [facility] [id number] [address] [place] [address] Mar, Parathyroid abnormality E21. 5 and Encounter for immunization Z23 [facility] [address] [place] [id number] [place] [address] Mar, [facility] [address] [place] [id number] [place] [address] Mar, [facility] [address] [place] [id number] [place] [address] 21 Feb, 2016 Renal insufficiency N28.9 an d Hyperparathyroidism E21.3 [facility] [address] [place] [id number] [place] [address] 19 Feb, 2016 [facility] [address] [facility] [id number] [address] [place] [address] 15 Feb, 2016 Renal insufficiency N28.9 an d Hyperparathyroidism E21.3 [facility] [address] [facility] [id number] [address] [place] [address] 14 Feb, 2016 [facility] [address] [facility] [id number] [address] [place] [address] 12 Feb, 2016 [facility] [address] [facility] [id number] [address] [place] [address] 09 Feb, 2016 [facility] [address] [facility] [id number] [address] [place] [address] 17 Jan, 2016 [facility] [address] [facility] [id number] [address] [place] [address] Jan, Arthritis M19.90 ; Lumbago w ith sciatica, right side M54.41 and Other chronic pain G89.29 [facility] [address] [facility] [id number] [address] [place] [address] Jan, [facility] [address] [facility] [id number] [address] [place] [address] Dec, Arthritis M19.90 ; Lumbago w ith sciatica, right side M54.41 and Other chronic pain G89.29 [facility] [address] [facility] [id number] [address] [place] [address] 16 Nov, 2015 Deficiency of other specifie d B group vitamins E53.8 ; Primary insomnia F51.01 ; Mood disorder F39 and Lumbago with sciatica, right side M54.41 [place] [address] [facility] [id number] [address] [place] [address] Nov, Hyperparathyroidism E21.3 [place] [address] [facility] [id number] [address] [place] [address] Nov, Unspecified kidney failure N 19 and Hyperparathyroidism E21.3 [place] [address] [facility] [id number] [address] [place] [address] October, Hyperparathyroidism E21.3 [place] [address] [place] [id number] [place] [address] October, [facility] [address] [facility] [id number] [address] [place] [address] October, Hyperparathyroidism E21.3 [facility] [address] [facility] [id number] [address] [place] [address] October, Hyperparathyroidism E21.3 [place] [address] [facility] [id number] [address] [place] [address] Sep, Hyperparathyroidism E21.3 ; Hypercholesterolemia E78.0 and Arthritis M19.90 [place] [address] [place] [id number] [place] [address] Aug, [facility] [address] [facility] [id number] [address] [place] [address] Aug, Deficiency of other specifie d B group vitamins E53.8 [facility] [address] [facility] [id number] [address] [place] [address] Aug, [facility] [address] [facility] [id number] [address] [place] [address] Jul, Urinary frequency R35.0 [facility] [address] [facility] [id number] [address] [place] [address] Jul, Urinary frequency R35.0 [facility] [address] [facility] [id number] [address] [place] [address] Jul, [facility] [address] [place] [id number] [place] [address] Jul, [facility] [address] [place] [id number] [place] [address] Jun, Pain in left knee M25.562 [facility] [address] [facility] [id number] [address] [place] [address] Jun, [facility] [address] [place] [id number] [place] [address] May, Swelling of left knee joint M25.462 [facility] [address] [facility] [id number] [address] [place] [address] May, [facility] [address] [facility] [id number] [address] [place] [address] May, [facility] [address] [place] [id number] [address] [place] [address] May, [facility] [address] [place] [id number] [place] [address] Apr, Renal insufficiency N28.9 an d Chronic kidney disease, stage 4 (severe) N18.4 [facility] [address] [place] [id number] [place] [address] Apr, Unspecified kidney failure N 19 [facility] [address] [id number] [address] [place] [address] Apr, Unspecified kidney failure N 19 [facility] [address] [id number] [address] [place] [address] Apr, [facility] [address] [id number] [address] [place] [address] Apr, Hyperparathyroidism, unspeci fied 252.00 [facility] [address] [id number] [address] [place] [address] Apr, [facility] [address] [id number] [address] [place] [address] Mar, [facility] [address] [id number] [address] [place] [address] Mar, [facility] [address] [id number] [address] [place] [address] Mar, Hyperparathyroidism, unspeci fied 252.00 [facility] [address] [id number] [address] [place] [address] Feb, [facility] [address] [facility] [id number] [address] [place] [address] Feb, Otalgia 388.70 [facility] [address] [id number] [address] [place] [address] Feb, [facility] [address] [facility] [id number] [address] [place] [address] Feb, [facility] [address] [id number] [address] [place] [address] Jan, [facility] [address] [id number] [address] [place] [address] Jan, Hyperparathyroidism, unspeci fied 252.00 [facility] [address] [id number] [address] [place] [address] Jan, [facility] [address] [id number] [address] [place] [address] Jan, Other B-complex deficiencies 266.2 and Hyperparathyroidism, unspecified 252.00 [facility] [address] [id number] [address] [place] [address] Jan, [facility] [address] [id number] [address] [place] [address] Jan, [facility] [address] [id number] [address] [place] [address] Jan, [facility] [address] [id number] [address] [place] [address] Dec, [facility] [address] [id number] [address] [place] [address] Dec, [facility] [address] [id number] [address] [place] [address] Dec, [facility] [address] [id number] [address] [place] [address] Nov, Routine check-up V70.0 and P re-op exam V72.84 [facility] [address] [id number] [address] [place] [address] Nov, [facility] [address] [id number] [address] [place] [address] Nov, [facility] [address] [id number] [address] [place] [address] October, [facility] [address] [id number] [address] [place] [address] October, Other B-complex deficiencies 266.2 [facility] [address] [id number] [address] [place] [address] October, [facility] [address] [id number] [address] [place] [address] 14 Sep, 2014 [facility] [address] [id number] [address] [place] [address], [place] [address] 13 Sep, 2014 [facility] [place] [facility] [address] [id number] [address] [place] [address], [place] [address] 20 Aug, 2014 [facility] [place] [facility] [address] [id number] [address] [place] [address], [place] [address] 20 Aug, 2014 [facility] [place] [facility] [address] [id number] [address] [place] [address], [place] [address] 17 Aug, 2014 [facility] [place] [facility] [address] [id number] [address] [place] [address], [place] [address] 17 Aug, 2014 [facility] [place] [facility] [address] [id number] [address] [place] [address], [place] [address] 11 Aug, 2014 [facility] [place] [facility] [address] [id number] [address] [place] [address], [place] [address] Aug, [facility] [place] [facility] [address] [id number] [address] [place] [address], [place] [address] 18 Jul, 2014 [facility] [place] [facility] [address] [id number] [address] [place] [address], [place] [address] 18 Jul, 2014 [facility] [place] [facility] [address] [id number] [address] [place] [address], [place] [address] 17 Jul, 2014 [facility] [place] [facility] [address] [id number] [address] [place] [address], [place] [address] 17 Jul, 2014 [facility] [place] [facility] [address] [id number] [address] [place] [address], [place] [address] 12 Jul, 2014 [facility] [place] [facility] [address] [id number] [address] [place] [address], [place] [address] 12 Jul, 2014 [facility] [place] [facility] [address] [id number] [address] [place] [address], [place] [address] 10 Jul, 2014 [facility] [place] [facility] [address] [id number] [address] [place] [address], [place] [address] 10 Jul, 2014 [facility] [place] [facility] [address] [id number] [address] [place] [address], [place] [address] Jul, 2014 [facility] [address] [id number] [address] [place] [address], [place] [address] Jul, 2014 [facility] [place] [facility] [address] [id number] [address] [place] [address], [place] [id number] Jul, 2014 [facility] [address] [id number] [address] [place] [address], [place] [address] Jul, 2014 [facility] [address] [id number] [address] [place] [address], [place] [address] Jul, [facility] [address] [id number] [address] [place] [address], [place] [address] Jul, [facility] [address] [id number] [address] [place] [address], [place] [address] Jun, [facility] [address] [id number] [address] [place] [address], [place] [address] Jun, [facility] [address] [id number] [address] [place] [address], [place] [id number] Jun, [facility] [address] [id number] [address] [place] [address], [place] [address] Jun, [facility] [address] [id number] [address] [place] [id number] Jun, [facility] [address] [id number] [address] [place] [id number] Jun, [facility] [address] [id number] [address] [place] [address], [place] [id number] Jun, [facility] [address] [id number] [address] [place] [address], [place] [address] Jun, [facility] [address] [id number] [address] [place] [id number] Jun, [facility] [address] [id number] [address] [place] [id number] Jun, [facility] [address] [id number] [address] [place] [address], [place] [address] Jun, [facility] [address] [id number] [address] [place] [address], [place] [address] Jun, [facility] [address] [id number] [address] [place] [address], [place] [address] Jun, [facility] [address] [id number] [address] [place] [address], [place] [address] Jun, [facility] [address] [id number] [address] [place] [address], [place] [address] May, [facility] [address] [id number] [address] [place] [address], [place] [address] May, [facility] [address] [id number] [address] [place] [address], [place] [address] May, [facility] [address] [id number] [address] [place] [address], [place] [id number] May, [facility] [address] [id number] [address] [place] [address], [place] [address] Apr, [facility] [address] [id number] [address] [place] [address], [place] [address] Apr, [facility] [address] [id number] [address] [place] [address], [place] [address] Apr, [facility] [address] [id number] [address] [place] [address], [place] [address] Apr, [facility] [address] [id number] [address] [place] [address], [place] [address] Apr, [facility] [address] [id number] [address] [place] [address], [place] [address] Apr, [facility] [address] [id number] [place] [address], [place] [address] 24 Mar, 2014 [facility] [address] [id number] [address] [place] [address], [place] [address] 24 Mar, 2013 [facility] [address] [id number] [address] [place] [address], [place] [address] Mar, [facility] [address] [id number] [address] [place] [address], [place] [address] 22 Mar, 2014 [facility] [address] [id number] [address] [place] [address], [place] [address] 15 Mar, 2014 [facility] [address] [id number] [address] [place] [address], [place] [address] 15 Mar, 2014 [facility] [address] [id number] [address] [place] [address], [place] [address] Mar, [facility] [address] [id number] [address] [place] [address], [place] [address] 13 Mar, 2013 [facility] [address] [id number] [address] [place] [address], [place] [address] 07 Mar, 2013 [facility] [address] [id number] [address] [place] [address], [place] [address] 07 Mar, 2014 [facility] [address] [id number] [address] [place] [address], [place] [address] 07 Mar, 2013 [facility] [address] [id number] [address] [place] [address], [place] [address] 07 Mar, 2014 [facility] [address] [id number] [address] [place] [address], [place] [address] 06 Mar, 2013 [facility] [address] [id number] [address] [place] [address], [place] [address] 26 Feb, 2013 [facility] [address] [id number] [address] [place] [address], [place] [address] Feb, 2013 [facility] [address] [id number] [address] [place] [address], [place] [address] 23 Feb, 2013 [facility] [address] [id number] [address] [place] [address], [place] [address] 23 Feb, 2014 [facility] [address] [id number] [facility] [place] [address] 19 Feb, 2014 [facility] [address] [id number] [address] [place] [address], [place] [address] 19 Feb, 2014 [facility] [address] [id number] [address] [place] [address], [place] [address] 13 Feb, 2014 [facility] [address] [id number] [address] [place] [address], [place] [address] 13 Feb, 2014 [facility] [address] [id number] [address] [place] [address], [place] [address] Feb, [facility] [address] [id number] [address] [place] [address], [place] [address] Feb, [facility] [address] [id number] [address] [place] [address], [place] [address] Jan, [facility] [address] [id number] [address] [place] [address], [place] [address] Jan, [facility] [address] [id number] [address] [place] [address], [place] [address] Dec, [facility] [address] [id number] [address] [place] [address], [place] [address] Dec, [facility] [address] [id number] [address] [place] [address], [place] [address] Dec, [facility] [address] [id number] [address] [place] [address], [place] [address] Dec, [facility] [address] [id number] [address] [place] [address], [place] [address] Dec, [facility] [address] [id number] [address] [place] [address], [place] [address] Dec, [facility] [address] [id number] [address] [place] [address], [place] [address] 16 Nov, 2013 [facility] [address] [id number] [address] [place] [address], [place] [address] Nov, [facility] [address] [id number] [facility] [place] [address] Nov, [facility] [address] [id number] [facility] [place] [address] Nov, [facility] [address] [id number] [facility] [place] [address] October, [facility] [address] [id number] [facility] [place] [address] October, [facility] [address] [id number] [address] [place] [address], [place] [address] October, [facility] [address] [id number] [address] [place] [address], [place] [address] October, [facility] [address] [id number] [address] [place] [address], [place] [address] October, [facility] [address] [id number] [address] [place] [address], [place] [address] October, [facility] [address] [id number] [address] [place] [address], [place] [address] October, [facility] [address] [id number] [address] [place] [address], [place] [address] October, [facility] [address] [id number] [address] [place] [address], [place] [address] October, [facility] [address] [id number] [address] [place] [address], [place] [address] October, [facility] [address] [id number] [address] [place] [address], [place] [address] October, [facility] [address] [id number] [address] [place] [address], [place] [address] October, [facility] [address] [id number] [address] [place] [address], [place] [address] October, [facility] [address] [id number] [facility] [place] [address] October, [facility] [address] [id number] [facility] [place] [address] October, [facility] [address] [id number] [address] [place] [address], [place] [address] October, [facility] [address] [id number] [address] [place] [address], [place] [address] Sep, [facility] [address] [id number] [address] [place] [address], [place] [address] Sep, [facility] [address] [id number] [address] [place] [address], [place] [address] Sep, [facility] [address] [id number] [address] [place] [address], [place] [address] Sep, [facility] [address] [id number] [address] [place] [address], [place] [address] Sep, [facility] [address] [id number] [address] [place] [address], [place] [address] Sep, [facility] [address] [id number] [address] [place] [address], [place] [address] Aug, [facility] [address] [id number] [address] [place] [address], [place] [address] Aug, [facility] [address] [id number] [address] [place] [address], [place] [address] Aug, [facility] [address] [id number] [address] [place] [address], [place] [address] Aug, [facility] [address] [id number] [address] [place] [address], [place] [address] Aug, [facility] [address] [id number] [address] [place] [address], [place] [address] Aug, [facility] [address] [id number] [address] [place] [address], [place] [address] Jul, [facility] [address] [id number] [address] [place] [address], [place] [address] Jul, [facility] [address] [id number] [address] [place] [address], [place] [address] Jul, [facility] [address] [id number] [address] [place] [address], [place] [address] Jul, [facility] [address] [id number] [address] [place] [address], [place] [address] Jun, [facility] [address] [id number] [address] [place] [address], [place] [address] Jun, [facility] [address] [id number] [address] [place] [address], [place] [address] May, [facility] [address] [id number] [address] [place] [address], [place] [address] May, [facility] [address] [id number] [address] [place] [address], [place] [address] May, [facility] [address] [id number] [address] [place] [address], [place] [address] May, [facility] [address] [id number] [address] [place] [address], [place] [address] May, [facility] [address] [id number] [address] [place] [address], [place] [address] Apr, [facility] [address] [id number] [address] [place] [address], [place] [address] Apr, [facility] [address] [id number] [address] [place] [address], [place] [address] Apr, [facility] [address] [id number] [address] [place] [address], [place] [address] Apr, [facility] [address] [id number] [address] [place] [address], [place] [address] Apr, [facility] [address] [id number] [address] [place] [address], [place] [address] 04 Apr, 2013 [facility] [address] [id number] [address] [place] [address], [place] [address] 15 Mar, 2013 [facility] [address] [id number] [address] [place] [address], [place] [address] 15 Mar, 2013 [facility] [address] [id number] [address] [place] [address], [place] [address] 14 Mar, 2013 [facility] [address] [id number] [address] [place] [address], [place] [address] 14 Mar, 2013 [facility] [address] [id number] [address] [place] [address], [place] [address] Mar, [facility] [address] [id number] [address] [place] [address], [place] [address] Mar, [facility] [address] [id number] [address] [place] [address], [place] [address] 23 Feb, 2013 [facility] [address] [id number] [address] [place] [address], [place] [address] 19 Feb, 2013 [facility] [address] [id number] [address] [place] [address], [place] [address] 04 Feb, 2013 [facility] [address] [id number] [address] [place] [address], [place] [address] 30 Jan, 2013 [facility] [address] [id number] [address] [place] [address], [place] [address] Jan, [facility] [address] [id number] [address] [place] [address], [place] [address] Jan, [facility] [address] [id number] [address] [place] [address], [place] [address] Jan, [facility] [address] [id number] [address] [place] [address], [place] [address] Jan, [facility] [address] [id number] [address] [place] [address], [place] [address] Jan, [facility] [address] [id number] [address] [place] [address], [place] [address] Dec, [facility] [address] [id number] [address] [place] [address], [place] [address] Dec, [facility] [address] [id number] [address] [place] [address], [place] [address] Dec, [facility] [address] [id number] [address] [place] [address], [place] [address] Dec, [facility] [address] [id number] [address] [place] [address], [place] [address] Dec, [facility] [address] [id number] [address] [place] [address], [place] [address] Dec, [facility] [address] [id number] [address] [place] [address], [place] [address] Nov, [facility] [address] [id number] [address] [place] [address], [place] [address] Nov, [facility] [address] [id number] [address] [place] [address], [place] [address] Nov, [facility] [address] [id number] [address] [place] [address], [place] [address] Nov, [facility] [address] [id number] [address] [place] [address], [place] [address] Nov, [facility] [address] [id number] [address] [place] [address], [place] [address] Nov, [facility] [address] [id number] [address] [place] [address], [place] [address] October, [facility] [address] [id number] [address] [place] [address], [place] [address] October, [facility] [address] [id number] [address] [place] [address], [place] [address] October, [facility] [address] [id number] [address] [place] [address], [place] [address] 15 Oct, 2012 [facility] [address] [id number] [address] [place] [address], [place] [address] October, [facility] [address] [id number] [address] [place] [address], [place] [address] 30 Sep, 2012 [facility] [address] [id number] [address] [place] [address], [place] [address] Sep, [facility] [address] [id number] [address] [place] [address], [place] [address] Sep, [facility] [address] [id number] [address] [place] [address], [place] [address] 18 Sep, 2012 [facility] [address] [id number] [address] [place] [address], [place] [address] Sep, [facility] [address] [id number] [address] [place] [address], [place] [address] Aug, [facility] [address] [id number] [address] [place] [address], [place] [address] Aug, [facility] [address] [id number] [address] [place] [address], [place] [address] 04 Aug, 2012 [facility] [address] [id number] [address] [place] [address], [place] [address] Jul, [facility] [address] [id number] [address] [place] [address], [place] [address] 20 Jul, 2012 [facility] [address] [id number] [address] [place] [address], [place] [address] 11 Jul, 2012 [facility] [address] [id number] [address] [place] [address], [place] [address] 08 Jul, 2012 [facility] [address] [id number] [address] [place] [address], [place] [address] 06 Jul, 2012 [facility] [address] [id number] [address] [place] [address], [place] [address] Jul, [facility] [address] [id number] [address] [place] [address], [place] [address] Jun, [facility] [address] [id number] [address] [place] [address], [place] [address] Apr, [facility] [address] [id number] [address] [place] [address], [place] [address] Apr, [facility] [address] [id number] [address] [place] [address], [place] [address] Apr, [facility] [address] [id number] [address] [place] [address], [place] [address] Apr, [facility] [address] [id number] [address] [place] [address], [place] [address] Mar, [facility] [address] [id number] [address] [place] [address], [place] [address] Mar, [facility] [address] [id number] [address] [place] [address], [place] [address] Mar, [facility] [address] [id number] [address] [place] [address], [place] [address] Mar, [facility] [address] [id number] [address] [place] [address] Mar, [facility] [address] [id number] [address] [place] [address] Feb, [facility] [address] [id number] [address] [place] [address] Jan, [facility] [address] [id number] [address] [place] [address], [place] [address] Jan, [facility] [address] [id number] [address] [place] [address] Jan, [facility] [address] [id number] [address] [place] [address] Dec, [facility] [address] [id number] [address] [place] [address] Nov, [facility] [address] [id number] [address] [place] [address] Nov, [facility] [address] [id number] [address] [place] [address] Nov, [facility] [address] [id number] [address] [place] [address] Nov, [facility] [address] [id number] [address] [place] [address] Nov, [facility] [address] [id number] [address] [place] [address] October, [facility] [address] [id number] [address] [place] [address] October, [facility] [address] [id number] [address] [place] [address] October, [facility] [address] [id number] [address] [place] [address] October, [facility] [address] [facility] [id number] [address] [place] [address] October, IMMUNIZATIONS No Known Immunizations SOCIAL HISTORY Never Assessed REASON FOR VISIT Controlled Med Refill PLAN OF CARE VITAL SIGNS MEDICATIONS Medication Instructions Dosage Frequency Start Date End Date Duration S tatus Zolpidem Tartrate 10 mg Orally Once a day 1 tablet at bedtime 24h 28 days Active Hydrocodone-Acetaminophen 10-325 MG Orally 3 times a day 1 tablet a s needed 8h Sep, 28 days Active RESULTS No Results PROCEDURES [...]
--- OUTSIDE RECORDS SUMMARY | 2020-01-25 08:05 | XMS REPORT ---
Author Author Velma CEE Organization [facility] Address [address] [place] [address] Care Team Providers Care Epidemiologist Name Role Phone TERRI CEE Unavailable PROBLEMS Type Condition ICD9-CM Code [id number] Code Onset Dates Condition S tatus SNOMED Code Problem Hypercholesteremia E78.0 Active 1 1345027 Problem Arthritis M19.90 Active 0997807 Problem Hyperparathyroidism E21.3 Active 16525765 Problem Primary insomnia F51.01 Active 397 2004 Problem Myalgia M79.1 Active 99395783 Problem Chronic kidney disease, stage 4 (severe) N18.4 Active 507138374 Problem BPV (benign positional vertigo), bilateral H81.13 Active 417099447 Problem Corns L84 Active 152686666 Problem Mood disorder F39 Active 983761 05 Problem 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 Active 57605466 Problem 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 Active 41681466 ALLERGIES Substance Reaction Event Type Date Status Ibuprofen no anti inflammatories Drug Allergy Sep, Activ e Cymbalta nausea and vomiting Drug Allergy Sep, Active Clonidine HCl blurry vision/weakness Drug Allergy Sep, Acti ve ENCOUNTERS Encounter Location Date Diagnosis [facility] [address] [facility] [id number] [address] [place] [address] Dec, Labyrinthitis of left ear H8 3.02 [facility] [address] [facility] [id number] [address] [place] [address] Nov, Arthritis M19.90 [facility] [address] [facility] [id number] [address] [place] [address] Nov, Labyrinthitis of left ear H8 3.02 [place] [id number] [facility] [id number] [address] [place] [address] Nov, BMI 40.0-44.9, adult Z68.41 ; Chronic kidney disease, stage 4 (severe) N18.4 and Acute right-sided thoracic back pain M54.6 [facility] [id number] [place] [address] October, Labyrinthitis of left ear H8 3.02 and Arthritis M19.90 [facility] [address] [place] [id number] [place] [address] Sep, BPV (benign positional verti go), bilateral H81.13 ; Dysfunction of left eustachian tube H69.82 and BMI 40.0-44.9, adult Z68.41 [facility] [address] [address] Sep, Labyrinthitis of left ear H8 3.02 and Arthritis M19.90 [facility] [address] [place] [address] Sep, [facility] [address] [place] [id number] [address] [place] [address] Sep, [facility] [address] [address] Sep, Chronic kidney disease, stag e 4 (severe) N18.4 [facility] [address] [place] [id number] [address] [place] [address] Sep, Chronic kidney disease, stag e 4 (severe) N18.4 [facility] [address] [place] [id number] [address] [place] [address] Aug, Labyrinthitis of left ear H8 3.02 and Arthritis M19.90 [facility] [address] [place] [id number] [address] [place] [address] Aug, [facility] [address] [place] [id number] [address] [place] [address] Jul, [facility] [address] [place] [id number] [address] [place] [address] Jul, Arthritis M19.90 and Labyrin thitis of left ear H83.02 [place] [address] [place] [id number] [address] [place] [address] Jul, [place] [address] [place] [id number] [address] [place] [address] Jun, [place] [address] [place] [id number] [address] [place] [address] Jun, Arthritis M19.90 and Labyrin thitis of left ear H83.02 [place] [address] [address] Jun, Pre-op evaluation Z01.818 ; BMI 40.0-44.9, adult Z68.41 and Encounter for immunization Z23 [place] [address] [place] [id number] [place] [address] May, Arthritis M19.90 and Labyrin thitis of left ear H83.02 [place] [address] [place] [id number] [address] [place] [address] Apr, Labyrinthitis of left ear H8 3.02 [place] [address] [place] [id number] [address] [place] [address] 07 Apr, 2017 Arthritis M19.90 and Labyrin thitis of left ear H83.02 [place] [address] [place] [id number] [address] [place] [address] Mar, Arthritis M19.90 and Labyrin thitis of left ear H83.02 [place] [address] [place] [id number] [address] [place] [address] 05 Mar, 2017 Chronic kidney disease, stag e 4 (severe) N18.4 [place] [address] [place] [id number] [address] [place] [address] 06 Feb, 2017 Arthritis M19.90 and Labyrin thitis of left ear H83.02 [facility] [address] [facility] [id number] [address] [place] [address] Jan, Labyrinthitis of left ear H8 3.02 and 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 [facility] [address] [id number] [address] [place] [address] Dec, Arthritis M19.90 [facility] [address] [facility] [id number] [address] [place] [address] Dec, BPV (benign positional verti go), bilateral H81.13 [facility] [address] [facility] [id number] [address] [place] [address] Dec, [facility] [address] [facility] [id number] [address] [place] [address] Dec, [facility] [address] [facility] [id number] [address] [place] [address] Dec, [facility] [address] [facility] [id number] [address] [place] [address] Nov, Arthritis M19.90 and Deficie ncy of other specified B group vitamins E53.8 [facility] [address] [facility] [id number] [address] [place] [address] Nov, Arthritis M19.90 [facility] [address] [facility] [id number] [address] [place] [address] Nov, Hyperparathyroidism E21.3 [facility] [address] [facility] [id number] [address] [place] [address] October, [facility] [address] [facility] [id number] [address] [place] [address] October, Hyperparathyroidism E21.3 [facility] [address] [facility] [id number] [address] [place] [address] October, [facility] [address] [facility] [id number] [address] [place] [address] October, Renal insufficiency N28.9 an d Hyperparathyroidism E21.3 [facility] [address] [facility] [id number] [address] [place] [address] October, [facility] [address] [place] [id number] [address] [place] [address] October, Renal insufficiency N28.9 an d Hyperparathyroidism E21.3 [facility] [address] [place] [id number] [address] [place] [address] October, Arthritis M19.90 [facility] [address] [facility] [id number] [address] [place] [address] Sep, [facility] [address] [address] Sep, Lumbar neuritis M54.16 ; Tho racic abscess J86.9 and 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 [facility] [address] [facility] [id number] [address] [place] [address] Sep, [facility] [address] [place] [id number] [address] [place] [address] Aug, Arthritis M19.90 [facility] [address] [place] [id number] [address] [place] [address] Aug, Hyperparathyroidism E21.3 [facility] [address] [place] [id number] [address] [place] [address] Aug, Hyperparathyroidism E21.3 [facility] [address] [place] [id number] [address] [place] [address] Aug, Arthritis M19.90 [facility] [address] [place] [id number] [address] [place] [address] Jul, Mass of throat R22.1 [facility] [address] [place] [id number] [address] [place] [address] Jul, [facility] [address] [address] Jul, Arthritis M19.90 [facility] [address] [facility] [id number] [address] [place] [address] Jun, Arthritis M19.90 [facility] [address] [facility] [id number] [address] [place] [address] Jun, [facility] [address] [facility] [id number] [address] [place] [address] Jun, Renal insufficiency N28.9 an d 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 [facility] [address] [facility] [id number] [address] [place] [address] 05 Jun, 2016 Encounter for immunization Z 23 ; Medicare welcome exam Z00.00 ; Arthritis M19.90 ; Medicare annual wellness visit, initial Z00.00 ; Medicare annual wellness visit, subsequent Z00.00 and 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 [facility] [address] [facility] [id number] [address] [place] [address] 29 May, 2016 Renal insufficiency N28.9 an d 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 [facility] [address] [facility] [id number] [address] [place] [address] May, Renal insufficiency N28.9 [facility] [address] [facility] [id number] [address] [place] [address] 16 May, 2016 Renal insufficiency N28.9 [facility] [address] [facility] [id number] [address] [place] [phone] 14 May, 2016 [facility] [address] [facility] [id number] [address] [place] [address] Apr, [facility] [address] [facility] [id number] [address] [place] [address] Apr, [facility] [address] [place] [id number] [address] [place] [address] 14 Apr, 2016 Mass of throat R22.1 [facility] [address] [facility] [id number] [address] [place] [address] 10 Apr, 2016 [facility] [address] [id number] [address] [place] [address] 10 Apr, 2016 Mass of throat R22.1 [facility] [address] [id number] [address] [place] [address] 04 Apr, 2016 Mass of throat R22.1 [facility] [address] [facility] [id number] [address] [place] [address] Mar, [facility] [address] [facility] [id number] [address] [place] [address] Mar, [facility] [address] [id number] [address] [place] [address] Mar, [facility] [address] [facility] [id number] [address] [place] [phone] 24 Mar, 2016 Parathyroid abnormality E21. 5 and Encounter for immunization Z23 [facility] [address] [facility] [id number] [address] [place] [address] Mar, [facility] [address] [facility] [id number] [address] [place] [address] Mar, [facility] [address] [facility] [id number] [address] [place] [address] 21 Feb, 2016 Renal insufficiency N28.9 an d Hyperparathyroidism E21.3 [facility] [address] [facility] [id number] [address] [place] [id number] 19 Feb, 2016 [facility] [address] [facility] [id number] [address] [place] [id number] 15 Feb, 2016 Renal insufficiency N28.9 an d Hyperparathyroidism E21.3 [facility] [address] [facility] [id number] [address] [place] [address] 14 Feb, 2016 [facility] [address] [facility] [id number] [address] [place] [address] 12 Feb, 2016 [facility] [address] [facility] [id number] [address] [place] [address] Feb, [facility] [address] [facility] [id number] [address] [place] [address] Jan, [facility] [address] [facility] [id number] [address] [place] [address] Jan, Arthritis M19.90 ; Lumbago w ith sciatica, right side M54.41 and Other chronic pain G89.29 [facility] [address] [facility] [id number] [address] [place] [address] Jan, [facility] [address] [facility] [id number] [address] [place] [address] Dec, Arthritis M19.90 ; Lumbago w ith sciatica, right side M54.41 and Other chronic pain G89.29 [facility] [address] [facility] [id number] [address] [place] [address] Nov, Deficiency of other specifie d B group vitamins E53.8 ; Primary insomnia F51.01 ; Mood disorder F39 and Lumbago with sciatica, right side M54.41 [facility] [address] [facility] [id number] [address] [place] [address] Nov, Hyperparathyroidism E21.3 [place] [address] [facility] [id number] [address] [place] [address] Nov, Unspecified kidney failure N 19 and Hyperparathyroidism E21.3 [facility] [address] [facility] [id number] [address] [place] [address] October, Hyperparathyroidism E21.3 [facility] [address] [facility] [id number] [address] [place] [address] October, [facility] [address] [facility] [id number] [address] [place] [address] October, Hyperparathyroidism E21.3 [facility] [address] [facility] [id number] [address] [place] [address] October, Hyperparathyroidism E21.3 [facility] [address] [place] [id number] [address] [place] [address] Sep, Hyperparathyroidism E21.3 ; Hypercholesterolemia E78.0 and Arthritis M19.90 [facility] [address] [place] [id number] [place] [address] Aug, [facility] [address] [facility] [id number] [address] [place] [address] Aug, Deficiency of other specifie d B group vitamins E53.8 [facility] [address] [facility] [id number] [address] [place] [address] Aug, [facility] [address] [place] [id number] [place] [address] Jul, Urinary frequency R35.0 [facility] [address] [place] [id number] [place] [address] Jul, Urinary frequency R35.0 [facility] [address] [address] Jul, [facility] [address] [place] [id number] [address] [place] [address] Jul, [facility] [address] [address] Jun, Pain in left knee M25.562 [facility] [address] [place] [id number] [address] [place] [address] Jun, [facility] [address] [place] [id number] [address] [place] [address] May, Swelling of left knee joint M25.462 [facility] [address] [facility] [id number] [address] [place] [address] May, [facility] [address] [place] [id number] [place] [address] May, [facility] [address] [place] [id number] [address] [place] [address] May, [facility] [address] [place] [id number] [address] [place] [address] Apr, Renal insufficiency N28.9 an d Chronic kidney disease, stage 4 (severe) N18.4 [facility] [address] [facility] [id number] [address] [place] [address] Apr, Unspecified kidney failure N 19 [facility] [address] [facility] [id number] [address] [place] [address] Apr, Unspecified kidney failure N 19 [facility] [address] [facility] [id number] [address] [place] [address] Apr, [facility] [address] [facility] [id number] [address] [place] [address] Apr, Hyperparathyroidism, unspeci fied 252.00 [facility] [address] [facility] [id number] [address] [place] [address] Apr, [facility] [address] [facility] [id number] [address] [place] [address] Mar, [facility] [address] [facility] [id number] [address] [place] [address] Mar, [facility] [address] [facility] [id number] [address] [place] [address] Mar, Hyperparathyroidism, unspeci fied 252.00 [facility] [address] [facility] [id number] [address] [place] [address] Feb, [facility] [address] [facility] [id number] [address] [place] [address] Feb, Otalgia 388.70 [facility] [address] [facility] [id number] [address] [place] [address] Feb, [facility] [address] [facility] [id number] [address] [place] [address] Feb, [facility] [address] [facility] [id number] [address] [place] [address] Jan, [facility] [address] [id number] [address] [place] [address] Jan, Hyperparathyroidism, unspeci fied 252.00 [facility] [address] [id number] [address] [place] [address] Jan, [facility] [address] [id number] [address] [place] [address] Jan, Other B-complex deficiencies 266.2 and Hyperparathyroidism, unspecified 252.00 [facility] [address] [id number] [address] [place] [address] Jan, [facility] [address] [id number] [address] [place] [address] Jan, [facility] [address] [id number] [address] [place] [address] Jan, [facility] [address] [id number] [address] [place] [phone] Dec, [facility] [address] [id number] [address] [place] [address] Dec, [facility] [address] [id number] [address] [place] [address] Dec, [facility] [address] [id number] [address] [place] [address] Nov, Routine check-up V70.0 and P re-op exam V72.84 [facility] [address] [id number] [address] [place] [address] Nov, [facility] [address] [id number] [address] [place] [address] Nov, [facility] [address] [id number] [address] [place] [address] October, [facility] [address] [id number] [address] [place] [address] October, Other B-complex deficiencies 266.2 [facility] [address] [id number] [address] [place] [address], [place] [address] 12 Oct, 2014 [facility] [address] [id number] [address] [place] [address], [place] [address] 14 Sep, 2014 [facility] [address] [id number] [address] [place] [address], [place] [address] 13 Sep, 2014 [facility] [address] [id number] [address] [place] [address], [place] [address] 20 Aug, 2014 [facility] [address] [id number] [address] [place] [address], [place] [address] 20 Aug, 2014 [facility] [address] [id number] [address] [place] [address], [place] [address] 17 Aug, 2014 [facility] [address] [id number] [address] [place] [address], [place] [address] 17 Aug, 2014 [facility] [address] [id number] [address] [place] [address], [place] [address] 11 Aug, 2014 [facility] [address] [id number] [address] [place] [address], [place] [address] Aug, [facility] [address] [id number] [address] [place] [address], [place] [address] 18 Jul, 2014 [facility] [address] [id number] [address] [place] [address], [place] [address] 18 Jul, 2014 [facility] [address] [id number] [address] [place] [address], [place] [address] 17 Jul, 2014 [facility] [address] [id number] [address] [place] [address], [place] [address] 17 Jul, 2014 [facility] [address] [id number] [address] [place] [address], [place] [address] 12 Jul, 2014 [facility] [address] [id number] [address] [place] [address], [place] [address] 12 Jul, 2014 [facility] [address] [id number] [address] [place] [address], [place] [address] Jul, 2014 [facility] [address] [id number] [address] [place] [address], [place] [address] Jul, 2014 [facility] [address] [id number] [address] [place] [address], [place] [address] Jul, 2014 [facility] [address] [id number] [address] [place] [address], [place] [address] Jul, 2014 [facility] [address] [id number] [address] [place] [address], [place] [address] Jul, 2014 [facility] [address] [id number] [address] [place] [address], [place] [address] Jul, 2014 [facility] [address] [id number] [address] [place] [address], [place] [address] Jul, [facility] [address] [id number] [address] [place] [address], [place] [address] Jul, [facility] [address] [id number] [address] [place] [address], [place] [address] Jun, [facility] [address] [id number] [address] [place] [address], [place] [address] Jun, [facility] [address] [id number] [address] [place] [address] Jun, [facility] [address] [id number] [address] [place] [address], [place] [address] Jun, [facility] [address] [id number] [address] [place] [address] Jun, [facility] [address] [id number] [address] [place] [address], [place] [address] Jun, [facility] [address] [id number] [address] [place] [address], [place] [address] Jun, [facility] [address] [id number] [address] [place] [address], [place] [address] Jun, [facility] [address] [id number] [address] [place] [address], [place] [address] Jun, [facility] [address] [id number] [address] [place] [address], [place] [address] Jun, [facility] [address] [id number] [address] [place] [address], [place] [address] Jun, [facility] [address] [id number] [address] [place] [address], [place] [address] Jun, [facility] [address] [id number] [address] [place] [address], [place] [address] Jun, [facility] [address] [id number] [address] [place] [address], [place] [address] Jun, [facility] [address] [id number] [address] [place] [address], [place] [address] May, [facility] [address] [id number] [address] [place] [address], [place] [address] May, [facility] [address] [id number] [address] [place] [address], [place] [address] May, [facility] [address] [id number] [address] [place] [address], [place] [address] May, [facility] [address] [id number] [address] [place] [address], [place] [address] Apr, [facility] [address] [id number] [address] [place] [address], [place] [address] Apr, [facility] [address] [id number] 22 [place] [address], [place] [address] Apr, [facility] [address] [id number] [address] [place] [address], [place] [address] Apr, [facility] [address] [id number] [address] [place] [address], [place] [address] Apr, [facility] [address] [id number] [address] [place] [address] Apr, [facility] [address] [id number] [address] [place] [address], [place] [address] Mar, [facility] [address] [id number] [address] [place] [address] Mar, [facility] [address] [id number] [address] [place] [address], [place] [address] Mar, [facility] [address] [id number] [address] [place] [address] Mar, [facility] [address] [id number] [address] [place] [address], [place] [address] Mar, [facility] [address] [id number] [address] [place] [address] Mar, [facility] [address] [id number] [address] [place] [address] Mar, [facility] [address] [id number] [address] [place] [address], [place] [address] Mar, [facility] [address] [id number] [address] [place] [address] Mar, [facility] [address] [id number] [address] [place] [address] Mar, [facility] [address] [id number] [address] [place] [address] Mar, [facility] [address] [id number] [address] [place] [address] Mar, [facility] [address] [id number] [address] [place] [address] Mar, [facility] [address] [id number] [address] [place] [address] Feb, [facility] [address] [id number] [address] [place] [address], [place] [address] Feb, 2013 [facility] [address] [id number] [facility] [address] 23 Feb, 2013 [facility] [address] [id number] [facility] [address] 23 Feb, 2014 [facility] [address] [id number] [facility] [address] 19 Feb, 2013 [facility] [address] [id number] [address] [place] [address], [place] [address] 19 Feb, 2013 [facility] [address] [id number] [address] [place] [address], [place] [address] 13 Feb, 2013 [facility] [address] [id number] [address] [place] [address], [place] [address] 13 Feb, 2014 [facility] [address] [id number] [address] [place] [address], [place] [address] Feb, [facility] [address] [id number] [address] [place] [address], [place] [address] Feb, [facility] [address] [id number] [address] [place] [address], [place] [address] Jan, [facility] [address] [id number] [address] [place] [address], [place] [address] Jan, [facility] [address] [id number] [address] [place] [address], [place] [address] Dec, [facility] [address] [id number] [address] [place] [address], [place] [address] Dec, [facility] [address] [id number] [address] [place] [address], [place] [address] Dec, [facility] [address] [id number] [address] [place] [address], [place] [address] Dec, [facility] [address] [id number] [address] [place] [address], [place] [address] Dec, [facility] [address] [id number] [address] [place] [address], [place] [address] Dec, [facility] [address] [id number] [facility] [address] Nov, [facility] [address] [id number] [address] [place] [address], [place] [address] Nov, [facility] [address] [id number] [address] [place] [address], [place] [address] Nov, [facility] [address] [id number] [address] [place] [address], [place] [address] Nov, [facility] [address] [id number] [address] [place] [address], [place] [address] October, [facility] [address] [id number] [address] [place] [address], [place] [address] October, [facility] [address] [id number] [address] [place] [address], [place] [address] October, [facility] [address] [id number] [address] [place] [address], [place] [address] October, [facility] [address] [id number] [address] [place] [address], [place] [address] October, [facility] [address] [id number] [address] [place] [address], [place] [address] October, [facility] [address] [id number] [address] [place] [address], [place] [address] October, [facility] [address] [id number] [address] [place] [address], [place] [address] October, [facility] [address] [id number] [address] [place] [address], [place] [address] October, [facility] [address] [id number] [address] [place] [address], [place] [address] October, [facility] [address] [id number] [address] [place] [address], [place] [address] October, [facility] [address] [id number] [address] [place] [address], [place] [address] October, [facility] [address] [id number] [address] [place] [address], [place] [address] October, [facility] [address] [id number] [address] [place] [address], [place] [address] October, [facility] [address] [id number] [address] [place] [address], [place] [address] October, [facility] [address] [id number] [address] [place] [address], [place] [address] October, [facility] [address] [id number] [address] [place] [address], [place] [address] Sep, [facility] [address] [id number] [address] [place] [address], [place] [address] Sep, [facility] [address] [id number] [address] [place] [address], [place] [address] Sep, [facility] [address] [id number] [address] [place] [address], [place] [address] Sep, [facility] [address] [id number] [address] [place] [address], [place] [address] Sep, [facility] [address] [id number] [address] [place] [address], [place] [address] Sep, [facility] [address] [id number] [address] [place] [address], [place] [address] Aug, [facility] [address] [id number] [address] [place] [address], [place] [address] Aug, [facility] [address] [id number] [address] [place] [address], [place] [address] Aug, [facility] [address] [id number] [address] [place] [address], [place] [address] Aug, [facility] [address] [id number] [address] [place] [address], [place] [address] Aug, [facility] [address] [id number] [address] [place] [address], [place] [address] Aug, [facility] [address] [id number] [address] [place] [address], [place] [address] Jul, [facility] [address] [id number] [address] [place] [address], [place] [address] Jul, [facility] [address] [id number] [address] [place] [address], [place] [address] Jul, [facility] [address] [id number] [address] [place] [address], [place] [address] Jul, [facility] [address] [id number] [address] [place] [address], [place] [address] Jun, [facility] [address] [id number] [address] [place] [address], [place] [address] Jun, [facility] [address] [id number] [address] [place] [address], [place] [address] May, [facility] [address] [id number] [address] [place] [address], [place] [address] May, [facility] [address] [id number] [address] [place] [address], [place] [address] May, [facility] [address] [id number] [address] [place] [address], [place] [address] May, [facility] [address] [id number] [address] [place] [address], [place] [address] May, [facility] [address] [id number] [address] [place] [address], [place] [address] Apr, [facility] [address] [id number] [address] [place] [address], [place] [address] Apr, [facility] [address] [id number] [address] [place] [address], [place] [address] Apr, [facility] [address] [id number] [address] [place] [address] Apr, [facility] [address] [id number] [address] [place] [address], [place] [address] 04 Apr, 2013 [facility] [address] [id number] [address] [place] [address] 04 Apr, 2013 [facility] [address] [id number] [address] [place] [address], [place] [address] 15 Mar, 2013 [facility] [address] [id number] [address] [place] [address] 15 Mar, 2013 [facility] [address] [id number] [address] [place] [address], [place] [address] 14 Mar, 2013 [facility] [address] [id number] [address] [place] [address], [place] [address] 14 Mar, 2013 [facility] [address] [id number] [address] [place] [address], [place] [address] Mar, [facility] [address] [id number] [address] [place] [address], [place] [address] Mar, [facility] [address] [id number] [address] [place] [address], [place] [address] 23 Feb, 2013 [facility] [address] [id number] [address] [place] [address], [place] [address] 19 Feb, 2013 [facility] [address] [id number] [address] [place] [address], [place] [address] Feb, [facility] [address] [id number] [address] [place] [address], [place] [address] 30 Jan, 2013 [facility] [address] [id number] [address] [place] [address], [place] [address] Jan, [facility] [address] [id number] [address] [place] [address], [place] [address] Jan, [facility] [address] [id number] [address] [place] [address], [place] [address] 16 Jan, 2013 [facility] [address] [id number] [address] [place] [address], [place] [address] Jan, [facility] [address] [id number] [address] [place] [address], [place] [address] Jan, [facility] [address] [id number] [address] [place] [address], [place] [address] Dec, [facility] [address] [id number] [address] [place] [address], [place] [address] Dec, [facility] [address] [id number] [address] [place] [address], [place] [address] Dec, [facility] [address] [id number] [address] [place] [address], [place] [address] Dec[facility] [address] [id number] [address] [place] [address], [place] [address] Dec, [facility] [address] [id number] [address] [place] [address], [place] [address] Dec, [facility] [address] [id number] [address] [place] [address], [place] [address] Nov, [facility] [address] [id number] [address] [place] [address], [place] [address] Nov, [facility] [address] [id number] [address] [place] [address], [place] [address] Nov, [facility] [address] [id number] [address] [place] [address], [place] [address] Nov, [facility] [address] [id number] [address] [place] [address], [place] [address] Nov, [facility] [address] [id number] [address] [place] [address], [place] [address] Nov, [facility] [address] [id number] [address] [place] [address], [place] [address] October, [facility] [address] [id number] [address] [place] [address], [place] [address] October, [facility] [address] [id number] [address] [place] [address], [place] [address] October, [facility] [address] [id number] [address] [place] [address], [place] [address] October, [facility] [address] [id number] [address] [place] [address], [place] [address] October, [facility] [address] [id number] [address] [place] [address], [place] [address] Sep, [facility] [address] [id number] [address] [place] [address], [place] [address] Sep, [facility] [address] [id number] [address] [place] [address], [place] [address] Sep, [facility] [address] [id number] [address] [place] [address], [place] [address] Sep, [facility] [address] [id number] [address] [place] [address], [place] [address] Sep, [facility] [address] [id number] [address] [place] [address], [place] [address] Aug, [facility] [address] [id number] [address] [place] [address], [place] [address] Aug, [facility] [address] [id number] [address] [place] [address], [place] [address] Aug, [facility] [address] [id number] [address] [place] [address], [place] [address] Jul, [facility] [address] [id number] [address] [place] [address], [place] [address] Jul, [facility] [address] [id number] [address] [place] [address], [place] [address] Jul, [facility] [address] [id number] [address] [place] [address], [place] [address] 08 Jul, 2012 [facility] [address] [id number] [address] [place] [address], [place] [address] Jul, [facility] [address] [id number] [address] [place] [address], [place] [address] Jul, [facility] [address] [id number] [address] [place] [address], [place] [address] Jun, [facility] [address] [id number] [address] [place] [address], [place] [address] Apr, [facility] [address] [id number] [address] [place] [address], [place] [address] Apr, [facility] [address] [id number] [address] [place] [address], [place] [address] Apr, [facility] [address] [id number] [address] [place] [address], [place] [address] Apr, [facility] [address] [id number] [address] [place] [address], [place] [address] Mar, [facility] [address] [id number] [address] [place] [address], [place] [address] Mar, [facility] [address] [id number] [address] [place] [address], [place] [address] Mar, [facility] [address] [id number] [address] [place] [address], [place] [address] Mar, [facility] [address] [id number] [address] [place] [address], [place] [address] Mar, [facility] [address] [id number] [address] [place] [address], [place] [address] Feb, [facility] [address] [id number] [address] [place] [address], [place] [address] Jan, [facility] [address] [id number] [address] [place] [address], [place] [address] Jan, [facility] [address] [id number] [address] [place] [address], [place] [address] Jan, [facility] [address] [id number] [address] [place] [address] Dec, [facility] [address] [id number] [address] [place] [address] Nov, [facility] [address] [id number] [address] [place] [address] Nov, [facility] [address] [id number] [address] [place] [address] Nov, [facility] [address] [id number] [address] [place] [address] Nov, [facility] [address] [id number] [address] [place] [address] Nov, [facility] [address] [id number] [address] [place] [address] October, [facility] [address] [id number] [address] [place] [address] October, [facility] [address] [id number] [address] [place] [address] October, [facility] [address] [id number] [address] [place] [address] October, [facility] [address] [id number] [address] [place] [address] October, IMMUNIZATIONS No Known Immunizations SOCIAL HISTORY Never Assessed REASON FOR VISIT Dizziness- started thursday, feels like she needs to hold on to the wall to walk-- Constantine Richardson RN PLAN OF CARE Activity Details Follow Up prn Reason: VITAL SIGNS Height 66 in 2017-10-20 Weight 262 lbs 2017-10-20 Temperature 98.0 degrees Fahrenheit 2017-10-20 Heart Rate 68 bpm 2017-10-20 Respiratory Rate 16 2017-10-20 BMI 42.28 kg/m2 2017-10-20 Blood pressure systolic 120 mmHg 2017-10-20 Blood pressure diastolic 74 mmHg 2017-10-20 MEDICATIONS Medication Instructions Dosage Frequency Start Date End Date Duration S tatus Chlorzoxazone 500 mg 1 tablet 12h Ac tive Calcium 500 mg Orally 3 times a day 1 tablet 8h Active Bicarb-Mg (CRRT) 10 by oral route 2 times a day 2 tablets 12h Active Omeprazole 40 mg Orally Once a day TAKE ONE CAPSULE BY MOUTH ONCE HECTOR Y 24h 90 days Active Levothyroxine Sodium 50 mcg Orally Once a day 1 tablet on an empty stomach in the morning 24h 90 days Active Lisinopril 5 mg Orally Once a day 1 tablet 24h 90 da ys Active Cetirizine HCl 10 MG Orally Once a day 1 tablet 24h Active SudoGest 60 mg Orally every 6 hrs 1 tablet as needed 6h 24 Sep, 8 05 days Active Fluticasone Propionate 50 MCG/ACT Nasally Once a day 1 spray in each nostril 24h Feb, Active Zolpidem Tartrate 10 mg Orally Once a day 1 tablet at bedtime 24h 28 days Active Multivital [place] Acti ve Meclizine HCl 25 MG Orally 4 times a day 1 tablet as needed 6h 26 2016 Not-Taking Hydrocodone-Acetaminophen 10-325 MG Orally 3 times a [...]
--- OUTSIDE RECORDS SUMMARY | 2020-01-25 08:06 | XMS REPORT ---
Author Author Velma CORDERO Organization [facility] Address [address] [place] [address] Care Team Providers [employer] Specialist Name Role Phone STEPHAN CORDERO Unavailable PROBLEMS Type Condition ICD9-CM Code [id number] Code Onset Dates Condition S tatus SNOMED Code Problem Hypercholesteremia E78.0 Active 1 5900242 Problem Arthritis M19.90 Active 6707772 Problem Hyperparathyroidism E21.3 Active 83624478 Problem Primary insomnia F51.01 Active 397 2004 Problem Myalgia M79.1 Active 46429400 Problem Chronic kidney disease, stage 4 (severe) N18.4 Active 857612713 Problem BPV (benign positional vertigo), bilateral H81.13 Active 269507657 Problem Corns L84 Active 049173353 Problem Mood disorder F39 Active 341716 05 Problem 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 Active 79411139 Problem 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 Active 91199221 ALLERGIES No Information ENCOUNTERS Encounter Location Date Diagnosis [place] [address] [place] [id number] [place] [id number] Dec, Labyrinthitis of left ear H8 3.02 [place] [address] [place] [id number] [address] [place] [address] Nov, Arthritis M19.90 [facility] [address] [facility] [id number] [address] [place] [address] Nov, Labyrinthitis of left ear H8 3.02 [place] [address] [place] [id number] [place] [id number] Nov, BMI 40.0-44.9, adult Z68.41 ; Chronic kidney disease, stage 4 (severe) N18.4 and Acute right-sided thoracic back pain M54.6 [place] [address] [place] [id number] [place] [address] October, Labyrinthitis of left ear H8 3.02 and Arthritis M19.90 [facility] [address] [id number] [address] [place] [address] Sep, BPV (benign positional verti go), bilateral H81.13 ; Dysfunction of left eustachian tube H69.82 and BMI 40.0-44.9, adult Z68.41 [place] [address] [address] [id number] [place] [address] Sep, Labyrinthitis of left ear H8 3.02 and Arthritis M19.90 [place] [address] [place] [id number] [place] [id number] Sep, [place] [address] [place] [id number] [place] [address] Sep, [place] [address] [address] Sep, Chronic kidney disease, stag e 4 (severe) N18.4 [place] [address] [place] [id number] [address] [place] [address] Sep, Chronic kidney disease, stag e 4 (severe) N18.4 [place] [address] [place] [id number] [place] [address] Aug, Labyrinthitis of left ear H8 3.02 and Arthritis M19.90 [place] [address] [place] [id number] [place] [address] Aug, [place] [address] [place] [id number] [place] [address] Jul, [place] [address] [place] [id number] [place] [address] Jul, Arthritis M19.90 and Labyrin thitis of left ear H83.02 [place] [address] [place] [address] [place] [address] 08 Jul, 2017 [place] [address] [address] Jun, [place] [address] [address] Jun, Arthritis M19.90 and Labyrin thitis of left ear H83.02 [place] [address] [address] Jun, Pre-op evaluation Z01.818 ; BMI 40.0-44.9, adult Z68.41 and Encounter for immunization Z23 [place] [address] [address] May, Arthritis M19.90 and Labyrin thitis of left ear H83.02 [place] [address] [address] Apr, Labyrinthitis of left ear H8 3.02 [place] [address] [address] Apr, Arthritis M19.90 and Labyrin thitis of left ear H83.02 [place] [address] [address] Mar, Arthritis M19.90 and Labyrin thitis of left ear H83.02 [place] [address] [address] Mar, Chronic kidney disease, stag e 4 (severe) N18.4 [place] [address] [address] Feb, Arthritis M19.90 and Labyrin thitis of left ear H83.02 [place] [address] [place] [id number] [place] [address] Jan, Labyrinthitis of left ear H8 3.02 and 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 [facility] [address] [id number] [address] [place] [address], [place] [address] Dec, Arthritis M19.90 [facility] [address] [id number] [address] [place] [address] Dec, BPV (benign positional verti go), bilateral H81.13 [facility] [address] [id number] [address] [place] [address] Dec, [facility] [address] [id number] [address] [place] [id number] Dec, [facility] [address] [facility] [id number] [address] [place] [address] Dec, [facility] [address] [facility] [id number] [address] [place] [address] Nov, Arthritis M19.90 and Deficie ncy of other specified B group vitamins E53.8 [facility] [address] [id number] [address] [place] [address], [place] [address] Nov, Arthritis M19.90 [facility] [address] [facility] [id number] [address] [place] [address], [place] [address] Nov, Hyperparathyroidism E21.3 [facility] [address] [facility] [id number] [address] [place] [address] October, [facility] [address] [id number] [address] [place] [address] October, Hyperparathyroidism E21.3 [facility] [address] [id number] [address] [place] [address] October, [facility] [address] [facility] [id number] [address] [place] [address] October, Renal insufficiency N28.9 an d Hyperparathyroidism E21.3 [facility] [address] [id number] [address] [place] [address] October, [facility] [address] [place] [id number] [place] [address] October, Renal insufficiency N28.9 an d Hyperparathyroidism E21.3 [facility] [address] [facility] [id number] [address] [place] [address] October, Arthritis M19.90 [facility] [address] [place] [id number] [place] [address] Sep, [facility] [address] [address] Sep, Lumbar neuritis M54.16 ; Tho racic abscess J86.9 and 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 [facility] [address] [facility] [id number] [address] [place] [address] Sep, [facility] [address] [address] Aug, Arthritis M19.90 [facility] [address] [place] [id number] [place] [address] Aug, Hyperparathyroidism E21.3 [facility] [address] [address] Aug, Hyperparathyroidism E21.3 [facility] [address] [place] [id number] [place] [address] Aug, Arthritis M19.90 [facility] [address] [place] [id number] [place] [address] Jul, Mass of throat R22.1 [facility] [address] [facility] [id number] [address] [place] [address] Jul, [facility] [id number] [place] [address] Jul, Arthritis M19.90 [facility] [address] [place] [id number] [place] [address] Jun, Arthritis M19.90 [facility] [address] [facility] [id number] [address] [place] [address] 13 Jun, 2016 [facility] [address] [facility] [id number] [address] [place] [address] 09 Jun, 2016 Renal insufficiency N28.9 an d Parathyroid 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 [facility] [address] [facility] [id number] [address] [place] [address] 05 Jun, 2016 Medicare welcome exam Z00.00 ; Encounter for immunization Z23 ; Arthritis M19.90 ; Medicare annual wellness visit, initial Z00.00 ; Medicare annual wellness visit, subsequent Z00.00 and 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 [facility] [address] [facility] [id number] [address] [place] [address] 29 May, 2016 Renal insufficiency N28.9 an d Parathyroid 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 [facility] [address] [facility] [id number] [address] [place] [address] May, Renal insufficiency N28.9 [facility] [address] [facility] [id number] [address] [place] [id number] 16 May, 2016 Renal insufficiency N28.9 [facility] [address] [facility] [id number] [address] [place] [address] 14 May, 2016 [facility] [address] [facility] [id number] [address] [place] [id number] 16 Apr, 2016 [facility] [address] [facility] [id number] [address] [place] [address] 16 Apr, 2016 [facility] [address] [facility] [id number] [address] [place] [address] 14 Apr, 2016 Mass of throat R22.1 [facility] [address] [facility] [id number] [address] [place] [address] 10 Apr, 2016 [facility] [address] [facility] [id number] [address] [place] [id number] 10 Apr, 2016 Mass of throat R22.1 [facility] [address] [place] [id number] [place] [address] Apr, Mass of throat R22.1 [facility] [address] [place] [id number] [place] [address] Mar, [facility] [address] [place] [id number] [place] [phone] Mar, [facility] [address] [place] [id number] [place] [address] Mar, [facility] [address] [facility] [id number] [address] [place] [address] Mar, Parathyroid abnormality E21. 5 and Encounter for immunization Z23 [facility] [address] [place] [id number] [place] [id number] Mar, [facility] [address] [place] [id number] [place] [address] Mar, [facility] [address] [place] [id number] [place] [id number] 21 Feb, 2016 Renal insufficiency N28.9 an d Hyperparathyroidism E21.3 [facility] [address] [place] [id number] [place] [id number] 19 Feb, 2016 [facility] [address] [facility] [id number] [address] [place] [id number] 15 Feb, 2016 Renal insufficiency N28.9 an d Hyperparathyroidism E21.3 [facility] [address] [facility] [id number] [address] [place] [id number] 14 Feb, 2016 [facility] [address] [facility] [id number] [address] [place] [id number] 12 Feb, 2016 [facility] [address] [facility] [id number] [address] [place] [id number] 09 Feb, 2016 [facility] [address] [facility] [id number] [address] [place] [id number] 17 Jan, 2016 [facility] [address] [facility] [id number] [address] [place] [address] Jan, Arthritis M19.90 ; Lumbago w ith sciatica, right side M54.41 and Other chronic pain G89.29 [facility] [address] [facility] [id number] [address] [place] [address] Jan, [facility] [address] [facility] [id number] [address] [place] [address] Dec, Arthritis M19.90 ; Lumbago w ith sciatica, right side M54.41 and Other chronic pain G89.29 [facility] [address] [facility] [id number] [address] [place] [address] 16 Nov, 2015 Deficiency of other specifie d B group vitamins E53.8 ; Primary insomnia F51.01 ; Mood disorder F39 and Lumbago with sciatica, right side M54.41 [place] [address] [facility] [id number] [address] [place] [id number] Nov, Hyperparathyroidism E21.3 [place] [address] [facility] [id number] [address] [place] [address] Nov, Unspecified kidney failure N 19 and Hyperparathyroidism E21.3 [place] [address] [facility] [id number] [address] [place] [address] October, Hyperparathyroidism E21.3 [place] [address] [place] [id number] [place] [address] October, [facility] [address] [facility] [id number] [address] [place] [address] October, Hyperparathyroidism E21.3 [facility] [address] [facility] [id number] [address] [place] [address] October, Hyperparathyroidism E21.3 [place] [address] [facility] [id number] [address] [place] [address] Sep, Hyperparathyroidism E21.3 ; Hypercholesterolemia E78.0 and Arthritis M19.90 [place] [address] [place] [id number] [place] [address] Aug, [facility] [address] [facility] [id number] [address] [place] [address] Aug, Deficiency of other specifie d B group vitamins E53.8 [facility] [address] [facility] [id number] [address] [place] [address] Aug, [facility] [address] [facility] [id number] [address] [place] [address] Jul, Urinary frequency R35.0 [facility] [address] [facility] [id number] [address] [place] [address] Jul, Urinary frequency R35.0 [facility] [address] [facility] [id number] [address] [place] [address] Jul, [facility] [address] [place] [id number] [place] [address] Jul, [facility] [address] [place] [id number] [place] [address] Jun, Pain in left knee M25.562 [facility] [address] [facility] [id number] [address] [place] [address] Jun, [facility] [address] [place] [id number] [place] [address] May, Swelling of left knee joint M25.462 [facility] [address] [facility] [id number] [address] [place] [address] May, [facility] [address] [facility] [id number] [address] [place] [address] May, [facility] [address] [place] [id number] [address] [place] [address] May, [facility] [address] [place] [id number] [place] [address] Apr, Renal insufficiency N28.9 an d Chronic kidney disease, stage 4 (severe) N18.4 [facility] [address] [place] [id number] [place] [address] Apr, Unspecified kidney failure N 19 [facility] [address] [id number] [address] [place] [address] Apr, Unspecified kidney failure N 19 [facility] [address] [id number] [address] [place] [address] Apr, [facility] [address] [id number] [address] [place] [address] Apr, Hyperparathyroidism, unspeci fied 252.00 [facility] [address] [id number] [address] [place] [address] Apr, [facility] [address] [id number] [address] [place] [address] Mar, [facility] [address] [id number] [address] [place] [address] Mar, [facility] [address] [id number] [address] [place] [address] Mar, Hyperparathyroidism, unspeci fied 252.00 [facility] [address] [id number] [address] [place] [address] Feb, [facility] [address] [facility] [id number] [address] [place] [address] Feb, Otalgia 388.70 [facility] [address] [id number] [address] [place] [address] Feb, [facility] [address] [facility] [id number] [address] [place] [address] Feb, [facility] [address] [id number] [address] [place] [address] Jan, [facility] [address] [id number] [address] [place] [address] Jan, Hyperparathyroidism, unspeci fied 252.00 [facility] [address] [id number] [address] [place] [address] Jan, [facility] [address] [id number] [address] [place] [address] Jan, Other B-complex deficiencies 266.2 and Hyperparathyroidism, unspecified 252.00 [facility] [address] [id number] [address] [place] [id number] Jan, [facility] [address] [id number] [address] [place] [id number] Jan, [facility] [address] [id number] [address] [place] [id number] Jan, [facility] [address] [id number] [address] [place] [id number] Dec, [facility] [address] [id number] [address] [place] [address] Dec, [facility] [address] [id number] [address] [place] [address] Dec, [facility] [address] [id number] [address] [place] [id number] Nov, Routine check-up V70.0 and P re-op exam V72.84 [facility] [address] [id number] [address] [place] [address] Nov, [facility] [address] [id number] [address] [place] [address] Nov, [facility] [address] [id number] [address] [place] [address] October, [facility] [address] [id number] [address] [place] [address] October, Other B-complex deficiencies 266.2 [facility] [address] [id number] [address] [place] [address] October, [facility] [address] [id number] [address] [place] [id number] 14 Sep, 2014 [facility] [address] [id number] [address] [place] [address], [place] [address] 13 Sep, 2014 [facility] [place] [facility] [address] [id number] [address] [place] [address], [place] [address] 20 Aug, 2014 [facility] [place] [facility] [address] [id number] [address] [place] [address], [place] [address] 20 Aug, 2014 [facility] [place] [facility] [address] [id number] [address] [place] [address], [place] [address] 17 Aug, 2014 [facility] [place] [facility] [address] [id number] [address] [place] [address], [place] [address] 17 Aug, 2014 [facility] [place] [facility] [address] [id number] [address] [place] [address], [place] [address] 11 Aug, 2014 [facility] [place] [facility] [address] [id number] [address] [place] [address], [place] [address] Aug, [facility] [place] [facility] [address] [id number] [address] [place] [address], [place] [address] 18 Jul, 2014 [facility] [place] [facility] [address] [id number] [address] [place] [address], [place] [address] 18 Jul, 2014 [facility] [place] [facility] [address] [id number] [address] [place] [address], [place] [address] 17 Jul, 2014 [facility] [place] [facility] [address] [id number] [address] [place] [address], [place] [address] 17 Jul, 2014 [facility] [place] [facility] [address] [id number] [address] [place] [address], [place] [address] 12 Jul, 2014 [facility] [place] [facility] [address] [id number] [address] [place] [address], [place] [address] 12 Jul, 2014 [facility] [place] [facility] [address] [id number] [address] [place] [address], [place] [address] 10 Jul, 2014 [facility] [place] [facility] [address] [id number] [address] [place] [address], [place] [address] 10 Jul, 2014 [facility] [place] [facility] [address] [id number] [address] [place] [address], [place] [address] Jul, 2014 [facility] [address] [id number] [address] [place] [address], [place] [address] Jul, 2014 [facility] [place] [facility] [address] [id number] [address] [place] [address], [place] [address] Jul, 2014 [facility] [place] [facility] [address] [id number] [address] [place] [address], [place] [address] Jul, 2014 [facility] [place] [facility] [address] [id number] [address] [place] [address], [place] [address] Jul, [facility] [place] [facility] [address] [id number] [address] [place] [address], [place] [address] Jul, [facility] [address] [id number] [address] [place] [address], [place] [address] Jun, [facility] [address] [id number] [address] [place] [address], [place] [address] Jun, [facility] [address] [id number] [address] [place] [address], [place] [address] Jun, [facility] [address] [id number] [address] [place] [address], [place] [address] Jun, [facility] [address] [id number] [address] [place] [id number] Jun, [facility] [address] [id number] [address] [place] [id number] Jun, [facility] [address] [id number] [address] [place] [address], [place] [address] Jun, [facility] [address] [id number] [address] [place] [address], [place] [address] Jun, [facility] [address] [id number] [address] [place] [id number] Jun, [facility] [address] [id number] [address] [place] [id number] Jun, [facility] [address] [id number] [address] [place] [address], [place] [address] Jun, [facility] [address] [id number] [address] [place] [address], [place] [address] Jun, [facility] [address] [id number] [address] [place] [address], [place] [address] Jun, [facility] [address] [id number] [address] [place] [address], [place] [address] Jun, [facility] [address] [id number] [address] [place] [address], [place] [address] May, [facility] [address] [id number] [address] [place] [address], [place] [address] May, [facility] [address] [id number] [address] [place] [address], [place] [address] May, [facility] [address] [id number] [address] [place] [address], [place] [address] May, [facility] [address] [id number] [address] [place] [address], [place] [address] Apr, [facility] [address] [id number] [address] [place] [address], [place] [address] Apr, [facility] [address] [id number] [address] [place] [address], [place] [address] Apr, [facility] [address] [id number] [address] [place] [address], [place] [id number] Apr, [facility] [address] [id number] [address] [place] [address], [place] [address] Apr, [facility] [address] [id number] [address] [place] [address], [place] [address] Apr, [facility] [address] [address] [id number] [address] [place] [address], [place] [address] 24 Mar, 2014 [facility] [address] [id number] [address] [place] [address], [place] [address] 24 Mar, 2013 [facility] [address] [id number] [address] [place] [address], [place] [address] Mar, [facility] [address] [id number] [address] [place] [address], [place] [address] 22 Mar, 2014 [facility] [address] [id number] [address] [place] [address], [place] [address] 15 Mar, 2014 [facility] [address] [id number] [address] [place] [address], [place] [address] 15 Mar, 2014 [facility] [address] [id number] [address] [place] [address], [place] [address] Mar, [facility] [address] [id number] [address] [place] [address], [place] [address] 13 Mar, 2013 [facility] [address] [id number] [address] [place] [address], [place] [address] 07 Mar, 2013 [facility] [address] [id number] [address] [place] [address], [place] [address] 07 Mar, 2014 [facility] [address] [id number] [address] [place] [address], [place] [address] 07 Mar, 2013 [facility] [address] [id number] [address] [place] [address], [place] [address] 07 Mar, 2014 [facility] [address] [id number] [address] [place] [address], [place] [address] 06 Mar, 2013 [facility] [address] [id number] [address] [place] [address], [place] [address] 26 Feb, 2013 [facility] [address] [id number] [address] [place] [address], [place] [address] Feb, 2013 [facility] [address] [id number] [address] [place] [address], [place] [address] 23 Feb, 2013 [facility] [address] [id number] [address] [place] [address], [place] [address] 23 Feb, 2014 [facility] [address] [id number] [facility] [place] [address] 19 Feb, 2014 [facility] [address] [id number] [address] [place] [address], [place] [address] 19 Feb, 2014 [facility] [address] [id number] [address] [place] [address], [place] [address] 13 Feb, 2014 [facility] [address] [id number] [address] [place] [address], [place] [address] 13 Feb, 2014 [facility] [address] [id number] [address] [place] [address], [place] [address] Feb, [facility] [address] [id number] [address] [place] [address], [place] [address] Feb, [facility] [address] [id number] [address] [place] [address], [place] [address] Jan, [facility] [address] [id number] [address] [place] [address], [place] [address] Jan, [facility] [address] [id number] [address] [place] [address], [place] [address] Dec, [facility] [address] [id number] [address] [place] [address], [place] [address] Dec, [facility] [address] [id number] [address] [place] [address], [place] [address] Dec, [facility] [address] [id number] [address] [place] [address], [place] [address] Dec, [facility] [address] [id number] [address] [place] [address], [place] [address] Dec, [facility] [address] [id number] [address] [place] [address], [place] [address] Dec, [facility] [address] [id number] [address] [place] [address], [place] [address] 16 Nov, 2013 [facility] [address] [id number] [address] [place] [address], [place] [address] Nov, [facility] [address] [id number] [facility] [place] [address] Nov, [facility] [address] [id number] [facility] [place] [address] Nov, [facility] [address] [id number] [facility] [place] [address] October, [facility] [address] [id number] [facility] [place] [address] October, [facility] [address] [id number] [address] [place] [address], [place] [address] October, [facility] [address] [id number] [address] [place] [address], [place] [address] October, [facility] [address] [id number] [address] [place] [address], [place] [address] October, [facility] [address] [id number] [address] [place] [address], [place] [address] October, [facility] [address] [id number] [address] [place] [address], [place] [address] October, [facility] [address] [id number] [address] [place] [address], [place] [address] October, [facility] [address] [id number] [address] [place] [address], [place] [address] October, [facility] [address] [id number] [address] [place] [address], [place] [address] October, [facility] [address] [id number] [address] [place] [address], [place] [address] October, [facility] [address] [id number] [address] [place] [address], [place] [address] October, [facility] [address] [id number] [address] [place] [address], [place] [address] October, [facility] [address] [id number] [facility] [place] [address] October, [facility] [address] [id number] [facility] [place] [address] October, [facility] [address] [id number] [address] [place] [address], [place] [address] October, [facility] [address] [id number] [address] [place] [address], [place] [address] Sep, [facility] [address] [id number] [address] [place] [address], [place] [address] Sep, [facility] [address] [id number] [address] [place] [address], [place] [address] Sep, [facility] [address] [id number] [address] [place] [address], [place] [address] Sep, [facility] [address] [id number] [address] [place] [address], [place] [address] Sep, [facility] [address] [id number] [address] [place] [address], [place] [address] Sep, [facility] [address] [id number] [address] [place] [address], [place] [address] Aug, [facility] [address] [id number] [address] [place] [address], [place] [address] Aug, [facility] [address] [id number] [address] [place] [address], [place] [address] Aug, [facility] [address] [id number] [address] [place] [address], [place] [address] Aug, [facility] [address] [id number] [address] [place] [address], [place] [address] Aug, [facility] [address] [id number] [address] [place] [address], [place] [address] Aug, [facility] [address] [id number] [address] [place] [address], [place] [address] Jul, [facility] [address] [id number] [address] [place] [address], [place] [address] Jul, [facility] [address] [id number] [address] [place] [address], [place] [address] Jul, [facility] [address] [id number] [address] [place] [address], [place] [address] Jul, [facility] [address] [id number] [address] [place] [address], [place] [address] Jun, [facility] [address] [id number] [address] [place] [address], [place] [address] Jun, [facility] [address] [id number] [address] [place] [address], [place] [address] May, [facility] [address] [id number] [address] [place] [address], [place] [address] May, [facility] [address] [id number] [address] [place] [address], [place] [address] May, [facility] [address] [id number] [address] [place] [address], [place] [address] May, [facility] [address] [id number] [address] [place] [address], [place] [address] May, [facility] [address] [id number] [address] [place] [address], [place] [address] Apr, [facility] [address] [id number] [address] [place] [address], [place] [address] Apr, [facility] [address] [id number] [address] [place] [address], [place] [address] Apr, [facility] [address] [id number] [address] [place] [address], [place] [address] Apr, [facility] [address] [id number] [address] [place] [address], [place] [address] Apr, [facility] [address] [id number] [address] [place] [address], [place] [address] 04 Apr, 2013 [facility] [address] [id number] [address] [place] [address], [place] [address] 15 Mar, 2013 [facility] [address] [id number] [address] [place] [address], [place] [address] 15 Mar, 2013 [facility] [address] [id number] [address] [place] [address], [place] [address] 14 Mar, 2013 [facility] [address] [id number] [address] [place] [address], [place] [address] 14 Mar, 2013 [facility] [address] [id number] [address] [place] [address], [place] [address] Mar, [facility] [address] [id number] [address] [place] [address], [place] [address] Mar, [facility] [address] [id number] [address] [place] [address], [place] [address] 23 Feb, 2013 [facility] [address] [id number] [address] [place] [address], [place] [address] 19 Feb, 2013 [facility] [address] [id number] [address] [place] [address], [place] [address] 04 Feb, 2013 [facility] [address] [id number] [address] [place] [address], [place] [address] 30 Jan, 2013 [facility] [address] [id number] [address] [place] [address], [place] [address] Jan, [facility] [address] [id number] [address] [place] [address], [place] [address] Jan, [facility] [address] [id number] [address] [place] [address], [place] [address] Jan, [facility] [address] [id number] [address] [place] [address], [place] [address] Jan, [facility] [address] [id number] [address] [place] [address], [place] [address] Jan, [facility] [address] [id number] [address] [place] [address], [place] [address] Dec, [facility] [address] [id number] [address] [place] [address], [place] [address] Dec, [facility] [address] [id number] [address] [place] [address], [place] [address] Dec, [facility] [address] [id number] [address] [place] [address], [place] [address] Dec, [facility] [address] [id number] [address] [place] [address], [place] [address] Dec, [facility] [address] [id number] [address] [place] [address], [place] [address] Dec, [facility] [address] [id number] [address] [place] [address], [place] [address] Nov, [facility] [address] [id number] [address] [place] [address], [place] [address] Nov, [facility] [address] [id number] [address] [place] [address], [place] [address] Nov, [facility] [address] [id number] [address] [place] [address], [place] [address] Nov, [facility] [address] [id number] [address] [place] [address], [place] [address] Nov, [facility] [address] [id number] [address] [place] [address], [place] [address] Nov, [facility] [address] [id number] [address] [place] [address], [place] [address] October, [facility] [address] [id number] [address] [place] [address], [place] [address] October, [facility] [address] [id number] [address] [place] [address], [place] [address] October, [facility] [address] [id number] [address] [place] [address], [place] [address] 15 Oct, 2012 [facility] [address] [id number] [address] [place] [address], [place] [address] October, [facility] [address] [id number] [address] [place] [address], [place] [address] 30 Sep, 2012 [facility] [address] [id number] [address] [place] [address], [place] [address] Sep, [facility] [address] [id number] [address] [place] [address], [place] [address] Sep, [facility] [address] [id number] [address] [place] [address], [place] [address] 18 Sep, 2012 [facility] [address] [id number] [address] [place] [address], [place] [address] Sep, [facility] [address] [id number] [address] [place] [address], [place] [address] Aug, [facility] [address] [id number] [address] [place] [address], [place] [address] Aug, [facility] [address] [id number] [address] [place] [address], [place] [address] 04 Aug, 2012 [facility] [address] [id number] [address] [place] [address], [place] [address] Jul, [facility] [address] [id number] [address] [place] [address], [place] [address] 20 Jul, 2012 [facility] [address] [id number] [address] [place] [address], [place] [address] 11 Jul, 2012 [facility] [address] [id number] [address] [place] [address], [place] [address] 08 Jul, 2012 [facility] [address] [id number] [address] [place] [address], [place] [address] 06 Jul, 2012 [facility] [address] [id number] [address] [place] [address], [place] [address] Jul, [facility] [address] [id number] [address] [place] [address], [place] [address] Jun, [facility] [address] [id number] [address] [place] [address], [place] [address] Apr, [facility] [address] [id number] [address] [place] [address], [place] [address] Apr, [facility] [address] [id number] [address] [place] [address], [place] [address] Apr, [facility] [address] [id number] [address] [place] [address], [place] [address] Apr, [facility] [address] [id number] [address] [place] [address], [place] [address] Mar, [facility] [address] [id number] [address] [place] [address], [place] [address] Mar, [facility] [address] [id number] [address] [place] [address], [place] [address] Mar, [facility] [address] [id number] [address] [place] [address], [place] [address] Mar, [facility] [address] [id number] [address] [place] [address] Mar, [facility] [address] [id number] [address] [place] [address] Feb, [facility] [address] [id number] [address] [place] [address] Jan, [facility] [address] [id number] [address] [place] [address], [place] [address] Jan, [facility] [address] [id number] [address] [place] [address] Jan, [facility] [address] [id number] [address] [place] [address] Dec, [facility] [address] [id number] [address] [place] [address] Nov, [facility] [address] [id number] [address] [place] [address] Nov, [facility] [address] [id number] [address] [place] [address] Nov, [facility] [address] [id number] [address] [place] [address] Nov, [facility] [address] [id number] [address] [place] [address] Nov, [facility] [address] [id number] [address] [place] [address] October, [facility] [address] [id number] [address] [place] [address] October, [facility] [address] [id number] [address] [place] [address] October, [facility] [address] [id number] [address] [place] [address] October, [facility] [address] [facility] [id number] [address] [place] [address] October, IMMUNIZATIONS No Known Immunizations SOCIAL HISTORY Never Assessed REASON FOR VISIT Refill request PLAN OF CARE VITAL SIGNS MEDICATIONS Medication [...] 1 tablet 24h 90 da ys Active RESULTS No Results PROCEDURES No Known [...]
--- OUTSIDE RECORDS SUMMARY | 2020-01-25 08:06 | XMS REPORT ---
Author Author Velma CORDERO Organization [facility] Address [address] [place] [address] Care Team Providers Care Police Liaison Name Role Phone STEPHAN CORDERO Unavailable PROBLEMS Type Condition ICD9-CM Code ISS66-RA Code Onset Dates Condition S tatus SNOMED Code Problem Hypercholesteremia E78.0 Active 1 0906331 Problem Arthritis M19.90 Active 0168559 Problem Hyperparathyroidism E21.3 Active 00947857 Problem Primary insomnia F51.01 Active 397 2004 Problem Myalgia M79.1 Active 80204810 Problem Chronic kidney disease, stage 4 (severe) N18.4 Active 222941185 Problem BPV (benign positional vertigo), bilateral H81.13 Active 568407652 Problem Corns L84 Active 301531829 Problem Mood disorder F39 Active 130746 05 Problem 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 Active 48735430 Problem 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 Active 65692984 ALLERGIES No Information ENCOUNTERS Encounter Location Date Diagnosis [place] [address] [place] [id number] [address] [place] [id number] Dec, Labyrinthitis of left ear H8 3.02 [place] [address] [place] [id number] [address] [place] [address] Nov, Arthritis M19.90 [facility] [address] [facility] [id number] [address] [place] [address] Nov, Labyrinthitis of left ear H8 3.02 [place] [address] [place] [id number] [address] [place] [address] Nov, BMI 40.0-44.9, adult Z68.41 ; Chronic kidney disease, stage 4 (severe) N18.4 and Acute right-sided thoracic back pain M54.6 [place] [address] [place] [id number] [address] [place] [address] October, Labyrinthitis of left ear H8 3.02 and Arthritis M19.90 [facility] [address] [place] [id number] [address] [place] [address] Sep, BPV (benign positional verti go), bilateral H81.13 ; Dysfunction of left eustachian tube H69.82 and BMI 40.0-44.9, adult Z68.41 [place] [address] [place] [id number] [place] [address] Sep, Labyrinthitis of left ear H8 3.02 and Arthritis M19.90 [place] [address] [place] [id number] [address] [place] [address] Sep, [place] [address] [place] [id number] [place] [address] Sep, [place] [address] [address] Sep, Chronic kidney disease, stag e 4 (severe) N18.4 [place] [address] [place] [id number] [address] [place] [address] Sep, Chronic kidney disease, stag e 4 (severe) N18.4 [place] [address] [place] [id number] [address] [place] [address] Aug, Labyrinthitis of left ear H8 3.02 and Arthritis M19.90 [place] [address] [place] [id number] [place] [address] Aug, [place] [address] [place] [id number] [place] [address] Jul, [place] [address] [place] [id number] [place] [address] Jul, Arthritis M19.90 and Labyrin thitis of left ear H83.02 [place] [address] [place] [address] [place] [address] 08 Jul, 2017 [place] [address] [address] Jun, [place] [address] [address] Jun, Arthritis M19.90 and Labyrin thitis of left ear H83.02 [place] [address] [address] Jun, Pre-op evaluation Z01.818 ; BMI 40.0-44.9, adult Z68.41 and Encounter for immunization Z23 [place] [address] [address] May, Arthritis M19.90 and Labyrin thitis of left ear H83.02 [place] [address] [address] Apr, Labyrinthitis of left ear H8 3.02 [place] [address] [address] Apr, Arthritis M19.90 and Labyrin thitis of left ear H83.02 [place] [address] [address] Mar, Arthritis M19.90 and Labyrin thitis of left ear H83.02 [place] [address] [address] Mar, Chronic kidney disease, stag e 4 (severe) N18.4 [place] [address] [address] Feb, Arthritis M19.90 and Labyrin thitis of left ear H83.02 [place] [address] [place] [id number] [place] [address] Jan, Labyrinthitis of left ear H8 3.02 and 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 [facility] [address] [id number] [address] [place] [address], [place] [address] Dec, Arthritis M19.90 [facility] [address] [id number] [address] [place] [address] Dec, BPV (benign positional verti go), bilateral H81.13 [facility] [address] [id number] [address] [place] [address] Dec, [facility] [address] [id number] [address] [place] [address] Dec, [facility] [address] [facility] [id number] [address] [place] [address] Dec, [facility] [address] [facility] [id number] [address] [place] [address] Nov, Arthritis M19.90 and Deficie ncy of other specified B group vitamins E53.8 [facility] [address] [id number] [address] [place] [address], [place] [address] Nov, Arthritis M19.90 [facility] [address] [facility] [id number] [address] [place] [address], [place] [address] Nov, Hyperparathyroidism E21.3 [facility] [address] [facility] [id number] [address] [place] [address] October, [facility] [address] [id number] [address] [place] [address] October, Hyperparathyroidism E21.3 [facility] [address] [id number] [address] [place] [address] October, [facility] [address] [facility] [id number] [address] [place] [address] October, Renal insufficiency N28.9 an d Hyperparathyroidism E21.3 [facility] [address] [id number] [address] [place] [address] October, [facility] [address] [place] [id number] [address] [place] [address] October, Renal insufficiency N28.9 an d Hyperparathyroidism E21.3 [facility] [address] [facility] [id number] [address] [place] [address] October, Arthritis M19.90 [facility] [address] [place] [id number] [address] [place] [address] Sep, [facility] [address] [address] Sep, Lumbar neuritis M54.16 ; Tho racic abscess J86.9 and Deficiency of other specified B group vitamins E53.8 [facility] [address] [facility] [id number] [address] [place] [address] Sep, [facility] [address] [address] Aug, Arthritis M19.90 [facility] [address] [place] [id number] [address] [place] [address] Aug, Hyperparathyroidism E21.3 [facility] [address] [address] Aug, Hyperparathyroidism E21.3 [facility] [address] [place] [id number] [place] [address] Aug, Arthritis M19.90 [facility] [address] [place] [id number] [address] [place] [address] Jul, Mass of throat R22.1 [facility] [address] [facility] [id number] [address] [place] [address] Jul, [facility] [id number] [place] [address] Jul, Arthritis M19.90 [facility] [address] [place] [id number] [place] [address] Jun, Arthritis M19.90 [facility] [address] [facility] [id number] [address] [place] [address] 13 Jun, 2016 [facility] [address] [facility] [id number] [address] [place] [address] 09 Jun, 2016 Renal insufficiency N28.9 an d 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 [facility] [address] [facility] [id number] [address] [place] [address] 05 Jun, 2016 Medicare welcome exam Z00.00 ; Encounter for immunization Z23 ; Arthritis M19.90 ; Medicare annual wellness visit, initial Z00.00 ; Medicare annual wellness visit, subsequent Z00.00 and 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 [facility] [address] [facility] [id number] [address] [place] [address] 29 May, 2016 Renal insufficiency N28.9 an d 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 [facility] [address] [facility] [id number] [address] [place] [address] May, Renal insufficiency N28.9 [facility] [address] [facility] [id number] [address] [place] [address] 16 May, 2016 Renal insufficiency N28.9 [facility] [address] [facility] [id number] [address] [place] [address] 14 May, 2016 [facility] [address] [facility] [id number] [address] [place] [address] 16 Apr, 2016 [facility] [address] [facility] [id number] [address] [place] [address] 16 Apr, 2016 [facility] [address] [facility] [id number] [address] [place] [address] 14 Apr, 2016 Mass of throat R22.1 [facility] [address] [facility] [id number] [address] [place] [address] 10 Apr, 2016 [facility] [address] [facility] [id number] [address] [place] [address] 10 Apr, 2016 Mass of throat R22.1 [facility] [address] [place] [id number] [place] [address] Apr, Mass of throat R22.1 [facility] [address] [place] [id number] [place] [address] Mar, [facility] [address] [place] [id number] [place] [address] Mar, [facility] [address] [place] [id number] [place] [address] Mar, [facility] [address] [facility] [id number] [address] [place] [address] Mar, Parathyroid abnormality E21. 5 and Encounter for immunization Z23 [facility] [address] [place] [id number] [place] [address] Mar, [facility] [address] [place] [id number] [place] [address] Mar, [facility] [address] [place] [id number] [place] [address] 21 Feb, 2016 Renal insufficiency N28.9 an d Hyperparathyroidism E21.3 [facility] [address] [place] [id number] [place] [id number] 19 Feb, 2016 [facility] [address] [facility] [id number] [address] [place] [address] 15 Feb, 2016 Renal insufficiency N28.9 an d Hyperparathyroidism E21.3 [facility] [address] [facility] [id number] [address] [place] [id number] 14 Feb, 2016 [facility] [address] [facility] [id number] [address] [place] [address] 12 Feb, 2016 [facility] [address] [facility] [id number] [address] [place] [address] 09 Feb, 2016 [facility] [address] [facility] [id number] [address] [place] [address] 17 Jan, 2016 [facility] [address] [facility] [id number] [address] [place] [address] Jan, Arthritis M19.90 ; Lumbago w ith sciatica, right side M54.41 and Other chronic pain G89.29 [facility] [address] [facility] [id number] [address] [place] [address] Jan, [facility] [address] [facility] [id number] [address] [place] [address] Dec, Arthritis M19.90 ; Lumbago w ith sciatica, right side M54.41 and Other chronic pain G89.29 [facility] [address] [facility] [id number] [address] [place] [address] 16 Nov, 2015 Deficiency of other specifie d B group vitamins E53.8 ; Primary insomnia F51.01 ; Mood disorder F39 and Lumbago with sciatica, right side M54.41 [place] [address] [facility] [id number] [address] [place] [address] Nov, Hyperparathyroidism E21.3 [place] [address] [facility] [id number] [address] [place] [address] Nov, Unspecified kidney failure N 19 and Hyperparathyroidism E21.3 [place] [address] [facility] [id number] [address] [place] [address] October, Hyperparathyroidism E21.3 [place] [address] [place] [id number] [place] [address] October, [facility] [address] [facility] [id number] [address] [place] [address] October, Hyperparathyroidism E21.3 [facility] [address] [facility] [id number] [address] [place] [address] October, Hyperparathyroidism E21.3 [place] [address] [facility] [id number] [address] [place] [address] Sep, Hyperparathyroidism E21.3 ; Hypercholesterolemia E78.0 and Arthritis M19.90 [place] [address] [place] [id number] [place] [address] Aug, [facility] [address] [facility] [id number] [address] [place] [address] Aug, Deficiency of other specifie d B group vitamins E53.8 [facility] [address] [facility] [id number] [address] [place] [address] Aug, [facility] [address] [facility] [id number] [address] [place] [address] Jul, Urinary frequency R35.0 [facility] [address] [facility] [id number] [address] [place] [address] Jul, Urinary frequency R35.0 [facility] [address] [facility] [id number] [address] [place] [address] Jul, [facility] [address] [place] [id number] [place] [address] Jul, [facility] [address] [place] [id number] [place] [address] Jun, Pain in left knee M25.562 [facility] [address] [facility] [id number] [address] [place] [address] Jun, [facility] [address] [place] [id number] [address] [place] [address] May, Swelling of left knee joint M25.462 [facility] [address] [facility] [id number] [address] [place] [address] May, [facility] [address] [facility] [id number] [address] [place] [address] May, [facility] [address] [place] [id number] [address] [place] [address] May, [facility] [address] [place] [id number] [address] [place] [address] Apr, Renal insufficiency N28.9 an d Chronic kidney disease, stage 4 (severe) N18.4 [facility] [address] [place] [id number] [address] [place] [address] Apr, Unspecified kidney failure N 19 [facility] [address] [id number] [address] [place] [address] Apr, Unspecified kidney failure N 19 [facility] [address] [id number] [address] [place] [address] Apr, [facility] [address] [id number] [address] [place] [address] Apr, Hyperparathyroidism, unspeci fied 252.00 [facility] [address] [id number] [address] [place] [address] Apr, [facility] [address] [id number] [address] [place] [address] Mar, [facility] [address] [id number] [address] [place] [address] Mar, [facility] [address] [id number] [address] [place] [address] Mar, Hyperparathyroidism, unspeci fied 252.00 [facility] [address] [id number] [address] [place] [address] Feb, [facility] [address] [facility] [id number] [address] [place] [address] Feb, Otalgia 388.70 [facility] [address] [id number] [address] [place] [address] Feb, [facility] [address] [facility] [id number] [address] [place] [address] Feb, [facility] [address] [id number] [address] [place] [address] Jan, [facility] [address] [id number] [address] [place] [address] Jan, Hyperparathyroidism, unspeci fied 252.00 [facility] [address] [id number] [address] [place] [address] Jan, [facility] [address] [id number] [address] [place] [address] Jan, Other B-complex deficiencies 266.2 and Hyperparathyroidism, unspecified 252.00 [facility] [address] [id number] [address] [place] [address] Jan, [facility] [address] [id number] [address] [place] [address] Jan, [facility] [address] [id number] [address] [place] [address] Jan, [facility] [address] [id number] [address] [place] [address] Dec, [facility] [address] [id number] [address] [place] [address] Dec, [facility] [address] [id number] [address] [place] [address] Dec, [facility] [address] [id number] [address] [place] [address] Nov, Routine check-up V70.0 and P re-op exam V72.84 [facility] [address] [id number] [address] [place] [address] Nov, [facility] [address] [id number] [address] [place] [address] Nov, [facility] [address] [id number] [address] [place] [address] October, [facility] [address] [id number] [address] [place] [address] October, Other B-complex deficiencies 266.2 [facility] [address] [id number] [address] [place] [address] October, [facility] [address] [id number] [address] [place] [address] 14 Sep, 2014 [facility] [address] [id number] [address] [place] [address], [place] [address] 13 Sep, 2014 [facility] [place] [facility] [address] [id number] [address] [place] [address], [place] [address] 20 Aug, 2014 [facility] [place] [facility] [address] [id number] [address] [place] [address], [place] [address] 20 Aug, 2014 [facility] [place] [facility] [address] [id number] [address] [place] [address], [place] [address] 17 Aug, 2014 [facility] [place] [facility] [address] [id number] [address] [place] [address], [place] [address] 17 Aug, 2014 [facility] [place] [facility] [address] [id number] [address] [place] [address], [place] [address] 11 Aug, 2014 [facility] [place] [facility] [address] [id number] [address] [place] [address], [place] [address] Aug, [facility] [place] [facility] [address] [id number] [address] [place] [address], [place] [address] 18 Jul, 2014 [facility] [place] [facility] [address] [id number] [address] [place] [address], [place] [address] 18 Jul, 2014 [facility] [place] [facility] [address] [id number] [address] [place] [address], [place] [address] 17 Jul, 2014 [facility] [place] [facility] [address] [id number] [address] [place] [address], [place] [address] 17 Jul, 2014 [facility] [place] [facility] [address] [id number] [address] [place] [address], [place] [address] 12 Jul, 2014 [facility] [place] [facility] [address] [id number] [address] [place] [address], [place] [address] 12 Jul, 2014 [facility] [place] [facility] [address] [id number] [address] [place] [address], [place] [address] 10 Jul, 2014 [facility] [place] [facility] [address] [id number] [address] [place] [address], [place] [address] 10 Jul, 2014 [facility] [address] [id number] [address] [place] [address], [place] [address] Jul, 2014 [facility] [address] [id number] [address] [place] [address], [place] [address] Jul, 2014 [facility] [address] [id number] [address] [place] [address], [place] [address] Jul, 2014 [facility] [address] [id number] [address] [place] [address], [place] [address] Jul, 2014 [facility] [address] [id number] [address] [place] [address], [place] [address] Jul, [facility] [address] [id number] [address] [place] [address], [place] [address] Jul, [facility] [address] [id number] [address] [place] [address], [place] [address] Jun, [facility] [address] [id number] [address] [place] [address], [place] [address] Jun, [facility] [address] [id number] [address] [place] [address], [place] [address] Jun, [facility] [address] [id number] [address] [place] [address], [place] [address] Jun, [facility] [address] [id number] [address] [place] [address] Jun, [facility] [address] [id number] [address] [place] [address] Jun, [facility] [address] [id number] [address] [place] [address], [place] [address] Jun, [facility] [address] [id number] [address] [place] [address], [place] [address] Jun, [facility] [address] [id number] [address] [place] [address] Jun, [facility] [address] [id number] [address] [place] [address] Jun, [facility] [address] [id number] [address] [place] [address], [place] [address] Jun, [facility] [address] [id number] [address] [place] [address], [place] [address] Jun, [facility] [address] [id number] [address] [place] [address], [place] [address] Jun, [facility] [address] [id number] [address] [place] [address], [place] [address] Jun, [facility] [address] [id number] [address] [place] [address], [place] [address] May, [facility] [address] [id number] [address] [place] [address], [place] [address] May, [facility] [address] [id number] [address] [place] [address], [place] [address] May, [facility] [address] [id number] [address] [place] [address], [place] [address] May, [facility] [address] [id number] [address] [place] [address], [place] [address] Apr, [facility] [address] [id number] [address] [place] [address], [place] [address] Apr, [facility] [address] [id number] [address] [place] [address], [place] [address] Apr, [facility] [address] [id number] [address] [place] [address], [place] [address] Apr, [facility] [address] [id number] [address] [place] [address], [place] [address] Apr, [facility] [address] [id number] [address] [place] [address], [place] [address] Apr, [facility] [address] [id number] [address] [place] [address], [place] [address] 24 Mar, 2014 [facility] [address] [id number] [address] [place] [address], [place] [address] 24 Mar, 2013 [facility] [address] [id number] [address] [place] [address], [place] [address] Mar, [facility] [address] [id number] [address] [place] [address], [place] [address] 22 Mar, 2014 [facility] [address] [id number] [address] [place] [address], [place] [address] 15 Mar, 2014 [facility] [address] [id number] [address] [place] [address], [place] [address] 15 Mar, 2014 [facility] [address] [id number] [address] [place] [address], [place] [address] Mar, [facility] [address] [id number] [address] [place] [address], [place] [address] 13 Mar, 2013 [facility] [address] [id number] [address] [place] [address], [place] [address] 07 Mar, 2013 [facility] [address] [id number] [address] [place] [address], [place] [address] 07 Mar, 2014 [facility] [address] [id number] [address] [place] [address], [place] [address] 07 Mar, 2013 [facility] [address] [id number] [address] [place] [address], [place] [address] 07 Mar, 2014 [facility] [address] [id number] [address] [place] [address], [place] [address] 06 Mar, 2013 [facility] [address] [id number] [address] [place] [address], [place] [address] 26 Feb, 2013 [facility] [address] [id number] [address] [place] [address], [place] [address] Feb, 2013 [facility] [address] [id number] [address] [place] [address], [place] [address] 23 Feb, 2013 [facility] [address] [id number] [address] [place] [address], [place] [address] 23 Feb, 2014 [facility] [address] [id number] [facility] [place] [address] 19 Feb, 2014 [facility] [address] [id number] [address] [place] [address], [place] [address] 19 Feb, 2014 [facility] [address] [id number] [address] [place] [address], [place] [address] 13 Feb, 2014 [facility] [address] [id number] [address] [place] [address], [place] [address] 13 Feb, 2014 [facility] [address] [id number] [address] [place] [address], [place] [address] Feb, [facility] [address] [id number] [address] [place] [address], [place] [address] Feb, [facility] [address] [id number] [address] [place] [address], [place] [address] Jan, [facility] [address] [id number] [address] [place] [address], [place] [address] Jan, [facility] [address] [id number] [address] [place] [address], [place] [address] Dec, [facility] [address] [id number] [address] [place] [address], [place] [address] Dec, [facility] [address] [id number] [address] [place] [address], [place] [address] Dec, [facility] [address] [id number] [address] [place] [address], [place] [address] Dec, [facility] [address] [id number] [address] [place] [address], [place] [address] Dec, [facility] [address] [id number] [address] [place] [address], [place] [address] Dec, [facility] [address] [id number] [address] [place] [address], [place] [address] 16 Nov, 2013 [facility] [address] [id number] [address] [place] [address], [place] [address] Nov, [facility] [address] [id number] [facility] [place] [address] Nov, [facility] [address] [id number] [facility] [place] [address] Nov, [facility] [address] [id number] [facility] [place] [address] October, [facility] [address] [id number] [facility] [place] [address] October, [facility] [address] [id number] [address] [place] [address], [place] [address] October, [facility] [address] [id number] [address] [place] [address], [place] [address] October, [facility] [address] [id number] [address] [place] [address], [place] [address] October, [facility] [address] [id number] [address] [place] [address], [place] [address] October, [facility] [address] [id number] [address] [place] [address], [place] [address] October, [facility] [address] [id number] [address] [place] [address], [place] [address] October, [facility] [address] [id number] [address] [place] [address], [place] [address] October, [facility] [address] [id number] [address] [place] [address], [place] [address] October, [facility] [address] [id number] [address] [place] [address], [place] [address] October, [facility] [address] [id number] [address] [place] [address], [place] [address] October, [facility] [address] [id number] [address] [place] [address], [place] [address] October, [facility] [address] [id number] [facility] [place] [address] October, [facility] [address] [id number] [facility] [place] [address] October, [facility] [address] [id number] [address] [place] [address], [place] [address] October, [facility] [address] [id number] [address] [place] [address], [place] [address] Sep, [facility] [address] [id number] [address] [place] [address], [place] [address] Sep, [facility] [address] [id number] [address] [place] [address], [place] [address] Sep, [facility] [address] [id number] [address] [place] [address], [place] [address] Sep, [facility] [address] [id number] [address] [place] [address], [place] [address] Sep, [facility] [address] [id number] [address] [place] [address], [place] [address] Sep, [facility] [address] [id number] [address] [place] [address], [place] [address] Aug, [facility] [address] [id number] [address] [place] [address], [place] [address] Aug, [facility] [address] [id number] [address] [place] [address], [place] [address] Aug, [facility] [address] [id number] [address] [place] [address], [place] [address] Aug, [facility] [address] [id number] [address] [place] [address], [place] [address] Aug, [facility] [address] [id number] [address] [place] [address], [place] [address] Aug, [facility] [address] [id number] [address] [place] [address], [place] [address] Jul, [facility] [address] [id number] [address] [place] [address], [place] [address] Jul, [facility] [address] [id number] [address] [place] [address], [place] [address] Jul, [facility] [address] [id number] [address] [place] [address], [place] [address] Jul, [facility] [address] [id number] [address] [place] [address], [place] [address] Jun, [facility] [address] [id number] [address] [place] [address], [place] [address] Jun, [facility] [address] [id number] [address] [place] [address], [place] [address] May, [facility] [address] [id number] [address] [place] [address], [place] [address] May, [facility] [address] [id number] [address] [place] [address], [place] [address] May, [facility] [address] [id number] [address] [place] [address], [place] [address] May, [facility] [address] [id number] [address] [place] [address], [place] [address] May, [facility] [address] [id number] [address] [place] [address], [place] [address] Apr, [facility] [address] [id number] [address] [place] [address], [place] [address] Apr, [facility] [address] [id number] [address] [place] [address], [place] [address] Apr, [facility] [address] [id number] [address] [place] [address], [place] [address] Apr, [facility] [address] [id number] [address] [place] [address], [place] [address] Apr, [facility] [address] [id number] [address] [place] [address], [place] [address] 04 Apr, 2013 [facility] [address] [id number] [address] [place] [address], [place] [address] 15 Mar, 2013 [facility] [address] [id number] [address] [place] [address], [place] [address] 15 Mar, 2013 [facility] [address] [id number] [address] [place] [address], [place] [address] 14 Mar, 2013 [facility] [address] [id number] [address] [place] [address], [place] [address] 14 Mar, 2013 [facility] [address] [id number] [address] [place] [address], [place] [address] Mar, [facility] [address] [id number] [address] [place] [address], [place] [address] Mar, [facility] [address] [id number] [address] [place] [address], [place] [address] 23 Feb, 2013 [facility] [address] [id number] [address] [place] [address], [place] [address] 19 Feb, 2013 [facility] [address] [id number] [address] [place] [address], [place] [address] 04 Feb, 2013 [facility] [address] [id number] [address] [place] [address], [place] [address] 30 Jan, 2013 [facility] [address] [id number] [address] [place] [address], [place] [address] Jan, [facility] [address] [id number] [address] [place] [address], [place] [address] Jan, [facility] [address] [id number] [address] [place] [address], [place] [address] Jan, [facility] [address] [id number] [address] [place] [address], [place] [address] Jan, [facility] [address] [id number] [address] [place] [address], [place] [address] Jan, [facility] [address] [id number] [address] [place] [address], [place] [address] Dec, [facility] [address] [id number] [address] [place] [address], [place] [address] Dec, [facility] [address] [id number] [address] [place] [address], [place] [address] Dec, [facility] [address] [id number] [address] [place] [address], [place] [address] Dec, [facility] [address] [id number] [address] [place] [address], [place] [address] Dec, [facility] [address] [id number] [address] [place] [address], [place] [address] Dec, [facility] [address] [id number] [address] [place] [address], [place] [address] Nov, [facility] [address] [id number] [address] [place] [address], [place] [address] Nov, [facility] [address] [id number] [address] [place] [address], [place] [address] Nov, [facility] [address] [id number] [address] [place] [address], [place] [address] Nov, [facility] [address] [id number] [address] [place] [address], [place] [address] Nov, [facility] [address] [id number] [address] [place] [address], [place] [address] Nov, [facility] [address] [id number] [address] [place] [address], [place] [address] October, [facility] [address] [id number] [address] [place] [address], [place] [address] October, [facility] [address] [id number] [address] [place] [address], [place] [address] October, [facility] [address] [id number] [address] [place] [address], [place] [address] 15 Oct, 2012 [facility] [address] [id number] [address] [place] [address], [place] [address] October, [facility] [address] [id number] [address] [place] [address], [place] [address] 30 Sep, 2012 [facility] [address] [id number] [address] [place] [address], [place] [address] Sep, [facility] [address] [id number] [address] [place] [address], [place] [address] Sep, [facility] [address] [id number] [address] [place] [address], [place] [address] 18 Sep, 2012 [facility] [address] [id number] [address] [place] [address], [place] [address] Sep, [facility] [address] [id number] [address] [place] [address], [place] [address] Aug, [facility] [address] [id number] [address] [place] [address], [place] [address] Aug, [facility] [address] [id number] [address] [place] [address], [place] [address] 04 Aug, 2012 [facility] [address] [id number] [address] [place] [address], [place] [address] Jul, [facility] [address] [id number] [address] [place] [address], [place] [address] 20 Jul, 2012 [facility] [address] [id number] [address] [place] [address], [place] [address] 11 Jul, 2012 [facility] [address] [id number] [address] [place] [address], [place] [address] 08 Jul, 2012 [facility] [address] [id number] [address] [place] [address], [place] [address] 06 Jul, 2012 [facility] [address] [id number] [address] [place] [address], [place] [address] Jul, [facility] [address] [id number] [address] [place] [address], [place] [address] Jun, [facility] [address] [id number] [address] [place] [address], [place] [address] Apr, [facility] [address] [id number] [address] [place] [address], [place] [address] Apr, [facility] [address] [id number] [address] [place] [address], [place] [address] Apr, [facility] [address] [id number] [address] [place] [address], [place] [address] Apr, [facility] [address] [id number] [address] [place] [address], [place] [address] Mar, [facility] [address] [id number] [address] [place] [address], [place] [address] Mar, [facility] [address] [id number] [address] [place] [address], [place] [address] Mar, [facility] [address] [id number] [address] [place] [address], [place] [address] Mar, [facility] [address] [id number] [address] [place] [address] Mar, [facility] [address] [id number] [address] [place] [address] Feb, [facility] [address] [id number] [address] [place] [address] Jan, [facility] [address] [id number] [address] [place] [address], [place] [address] Jan, [facility] [address] [id number] [address] [place] [address] Jan, [facility] [address] [id number] [address] [place] [address] Dec, [facility] [address] [id number] [address] [place] [address] Nov, [facility] [address] [id number] [address] [place] [address] Nov, [facility] [address] [id number] [address] [place] [address] Nov, [facility] [address] [id number] [address] [place] [address] Nov, [facility] [address] [id number] [address] [place] [address] Nov, [facility] [address] [id number] [address] [place] [address] October, [facility] [address] [facility] [id number] [address] [place] [address] October, [facility] [address] [facility] [id number] [address] [place] [address] October, [facility] [address] [id number] [address] [place] [address] October, [facility] [address] [facility] [id number] [address] [place] [address] October, IMMUNIZATIONS No Known Immunizations SOCIAL HISTORY Never Assessed REASON FOR VISIT update referral PLAN OF CARE VITAL SIGNS MEDICATIONS Unknown [...]
[2020-01-25] MEDS ORDERED: SEVOFLURANE (ULTANE) 15 ML INHAL SOLN ONE ×3 (08:07→09:24)
--- OUTSIDE RECORDS SUMMARY | 2020-01-25 08:07 | XMS REPORT ---
Author Author Velma CORDERO Organization [facility] Address [address] [place] [address] Care Team Providers Care Soil Expert Name Role Phone STEPHAN CORDERO Unavailable PROBLEMS Type Condition ICD9-CM Code [id number] Code Onset Dates Condition S tatus SNOMED Code Problem Hypercholesteremia E78.0 Active 1 0989728 Problem Arthritis M19.90 Active 3768813 Problem Hyperparathyroidism E21.3 Active 61490601 Problem Primary insomnia F51.01 Active 397 2004 Problem Myalgia M79.1 Active 18586677 Problem Chronic kidney disease, stage 4 (severe) N18.4 Active 220583851 Problem BPV (benign positional vertigo), bilateral H81.13 Active 010304454 Problem Corns L84 Active 403429383 Problem Mood disorder F39 Active 516051 05 Problem 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 Active 48783434 Problem 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 Active 85068302 ALLERGIES No Information ENCOUNTERS Encounter Location Date Diagnosis [place] [address] [place] [id number] [address] [place] [address] Dec, Labyrinthitis of left ear H8 3.02 [place] [address] [place] [id number] [address] [place] [address] Nov, Arthritis M19.90 [facility] [address] [facility] [id number] [address] [place] [address] Nov, Labyrinthitis of left ear H8 3.02 [place] [address] [place] [id number] [address] [place] [address] Nov, BMI 40.0-44.9, adult Z68.41 ; Chronic kidney disease, stage 4 (severe) N18.4 and Acute right-sided thoracic back pain M54.6 [place] [address] [place] [id number] [address] [place] [address] October, Labyrinthitis of left ear H8 3.02 and Arthritis M19.90 [facility] [address] [place] [id number] [address] [place] [address] Sep, BPV (benign positional verti go), bilateral H81.13 ; Dysfunction of left eustachian tube H69.82 and BMI 40.0-44.9, adult Z68.41 [place] [address] [place] [id number] [place] [address] Sep, Labyrinthitis of left ear H8 3.02 and Arthritis M19.90 [place] [address] [place] [id number] [address] [place] [address] Sep, [place] [address] [place] [id number] [place] [address] Sep, [place] [address] [address] Sep, Chronic kidney disease, stag e 4 (severe) N18.4 [place] [address] [place] [id number] [address] [place] [address] Sep, Chronic kidney disease, stag e 4 (severe) N18.4 [place] [address] [place] [id number] [address] [place] [address] Aug, Labyrinthitis of left ear H8 3.02 and Arthritis M19.90 [place] [address] [place] [id number] [address] [place] [address] Aug, [place] [address] [place] [id number] [address] [place] [address] Jul, [place] [address] [place] [id number] [address] [place] [address] Jul, Arthritis M19.90 and Labyrin thitis of left ear H83.02 [place] [address] [place] [id number] [place] [address] 08 Jul, 2017 [place] [address] [address] Jun, [place] [address] [address] Jun, Arthritis M19.90 and Labyrin thitis of left ear H83.02 [place] [address] [address] Jun, Pre-op evaluation Z01.818 ; BMI 40.0-44.9, adult Z68.41 and Encounter for immunization Z23 [place] [address] [address] May, Arthritis M19.90 and Labyrin thitis of left ear H83.02 [place] [address] [address] Apr, Labyrinthitis of left ear H8 3.02 [place] [address] [address] Apr, Arthritis M19.90 and Labyrin thitis of left ear H83.02 [place] [address] [address] Mar, Arthritis M19.90 and Labyrin thitis of left ear H83.02 [place] [address] [address] Mar, Chronic kidney disease, stag e 4 (severe) N18.4 [place] [address] [address] Feb, Arthritis M19.90 and Labyrin thitis of left ear H83.02 [place] [address] [place] [id number] [address] [place] [address] Jan, Labyrinthitis of left ear H8 3.02 and 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 [facility] [address] [id number] [address] [place] [address], [place] [address] Dec, Arthritis M19.90 [facility] [address] [id number] [address] [place] [address] Dec, BPV (benign positional verti go), bilateral H81.13 [facility] [address] [id number] [address] [place] [address] Dec, [facility] [address] [id number] [address] [place] [address] Dec, [facility] [address] [facility] [id number] [address] [place] [address] Dec, [facility] [address] [facility] [id number] [address] [place] [address] Nov, Arthritis M19.90 and Deficie ncy of other specified B group vitamins E53.8 [facility] [address] [id number] [address] [place] [address], [place] [address] Nov, Arthritis M19.90 [facility] [address] [facility] [id number] [address] [place] [address], [place] [address] Nov, Hyperparathyroidism E21.3 [facility] [address] [facility] [id number] [address] [place] [address] October, [facility] [address] [id number] [address] [place] [address] October, Hyperparathyroidism E21.3 [facility] [address] [id number] [address] [place] [address] October, [facility] [address] [facility] [id number] [address] [place] [address] October, Renal insufficiency N28.9 an d Hyperparathyroidism E21.3 [facility] [address] [id number] [address] [place] [address] October, [facility] [address] [place] [id number] [address] [place] [address] October, Renal insufficiency N28.9 an d Hyperparathyroidism E21.3 [facility] [address] [facility] [id number] [address] [place] [address] October, Arthritis M19.90 [facility] [address] [place] [id number] [address] [place] [address] Sep, [facility] [address] [address] Sep, Lumbar neuritis M54.16 ; Tho racic abscess J86.9 and 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 [facility] [address] [facility] [id number] [address] [place] [address] Sep, [facility] [address] [address] Aug, Arthritis M19.90 [facility] [address] [place] [id number] [address] [place] [address] Aug, Hyperparathyroidism E21.3 [facility] [address] [address] Aug, Hyperparathyroidism E21.3 [facility] [address] [place] [id number] [address] [place] [address] Aug, Arthritis M19.90 [facility] [address] [place] [id number] [address] [place] [address] Jul, Mass of throat R22.1 [facility] [address] [facility] [id number] [address] [place] [address] Jul, [facility] [id number] [place] [address] Jul, Arthritis M19.90 [facility] [address] [place] [id number] [address] [place] [address] Jun, Arthritis M19.90 [facility] [address] [facility] [id number] [address] [place] [address] 13 Jun, 2016 [facility] [address] [facility] [id number] [address] [place] [address] 09 Jun, 2016 Renal insufficiency N28.9 an d 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 [facility] [address] [facility] [id number] [address] [place] [address] 05 Jun, 2016 Medicare welcome exam Z00.00 ; Encounter for immunization Z23 ; Arthritis M19.90 ; Medicare annual wellness visit, initial Z00.00 ; Medicare annual wellness visit, subsequent Z00.00 and 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 [facility] [address] [facility] [id number] [address] [place] [address] 29 May, 2016 Renal insufficiency N28.9 an d 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 [facility] [address] [facility] [id number] [address] [place] [address] May, Renal insufficiency N28.9 [facility] [address] [facility] [id number] [address] [place] [address] 16 May, 2016 Renal insufficiency N28.9 [facility] [address] [facility] [id number] [address] [place] [address] 14 May, 2016 [facility] [address] [facility] [id number] [address] [place] [address] 16 Apr, 2016 [facility] [address] [facility] [id number] [address] [place] [address] 16 Apr, 2016 [facility] [address] [facility] [id number] [address] [place] [address] 14 Apr, 2016 Mass of throat R22.1 [facility] [address] [facility] [id number] [address] [place] [address] 10 Apr, 2016 [facility] [address] [facility] [id number] [address] [place] [address] 10 Apr, 2016 Mass of throat R22.1 [facility] [address] [place] [id number] [address] [place] [address] Apr, Mass of throat R22.1 [facility] [address] [place] [id number] [place] [address] Mar, [facility] [address] [place] [id number] [address] [place] [address] Mar, [facility] [address] [place] [id number] [address] [place] [address] Mar, [facility] [address] [facility] [id number] [address] [place] [address] Mar, Parathyroid abnormality E21. 5 and Encounter for immunization Z23 [facility] [address] [place] [id number] [address] [place] [address] Mar, [facility] [address] [place] [id number] [address] [place] [address] Mar, [facility] [address] [place] [id number] [address] [place] [address] 21 Feb, 2016 Renal insufficiency N28.9 an d Hyperparathyroidism E21.3 [facility] [address] [place] [id number] [address] [place] [address] 19 Feb, 2016 [facility] [address] [facility] [id number] [address] [place] [address] 15 Feb, 2016 Renal insufficiency N28.9 an d Hyperparathyroidism E21.3 [facility] [address] [facility] [id number] [address] [place] [address] 14 Feb, 2016 [facility] [address] [facility] [id number] [address] [place] [address] 12 Feb, 2016 [facility] [address] [facility] [id number] [address] [place] [address] 09 Feb, 2016 [facility] [address] [facility] [id number] [address] [place] [address] 17 Jan, 2016 [facility] [address] [facility] [id number] [address] [place] [address] Jan, Arthritis M19.90 ; Lumbago w ith sciatica, right side M54.41 and Other chronic pain G89.29 [facility] [address] [facility] [id number] [address] [place] [address] Jan, [facility] [address] [facility] [id number] [address] [place] [address] Dec, Arthritis M19.90 ; Lumbago w ith sciatica, right side M54.41 and Other chronic pain G89.29 [facility] [address] [facility] [id number] [address] [place] [address] 16 Nov, 2015 Deficiency of other specifie d B group vitamins E53.8 ; Primary insomnia F51.01 ; Mood disorder F39 and Lumbago with sciatica, right side M54.41 [place] [address] [facility] [id number] [address] [place] [address] Nov, Hyperparathyroidism E21.3 [place] [address] [facility] [id number] [address] [place] [address] Nov, Unspecified kidney failure N 19 and Hyperparathyroidism E21.3 [place] [address] [facility] [id number] [address] [place] [address] October, Hyperparathyroidism E21.3 [place] [address] [place] [id number] [address] [place] [address] October, [facility] [address] [facility] [id number] [address] [place] [address] October, Hyperparathyroidism E21.3 [facility] [address] [facility] [id number] [address] [place] [address] October, Hyperparathyroidism E21.3 [place] [address] [facility] [id number] [address] [place] [address] Sep, Hyperparathyroidism E21.3 ; Hypercholesterolemia E78.0 and Arthritis M19.90 [place] [address] [place] [id number] [address] [place] [address] Aug, [facility] [address] [facility] [id number] [address] [place] [address] Aug, Deficiency of other specifie d B group vitamins E53.8 [facility] [address] [facility] [id number] [address] [place] [address] Aug, [facility] [address] [facility] [id number] [address] [place] [address] Jul, Urinary frequency R35.0 [facility] [address] [facility] [id number] [address] [place] [address] Jul, Urinary frequency R35.0 [facility] [address] [facility] [id number] [address] [place] [address] Jul, [facility] [address] [place] [id number] [address] [place] [address] Jul, [facility] [address] [place] [id number] [address] [place] [address] Jun, Pain in left knee M25.562 [facility] [address] [facility] [id number] [address] [place] [address] Jun, [facility] [address] [place] [id number] [address] [place] [address] May, Swelling of left knee joint M25.462 [facility] [address] [facility] [id number] [address] [place] [address] May, [facility] [address] [facility] [id number] [address] [place] [address] May, [facility] [address] [place] [id number] [address] [place] [address] May, [facility] [address] [place] [id number] [address] [place] [address] Apr, Renal insufficiency N28.9 an d Chronic kidney disease, stage 4 (severe) N18.4 [facility] [address] [place] [id number] [address] [place] [address] Apr, Unspecified kidney failure N 19 [facility] [address] [id number] [address] [place] [address] Apr, Unspecified kidney failure N 19 [facility] [address] [id number] [address] [place] [address] Apr, [facility] [address] [id number] [address] [place] [address] Apr, Hyperparathyroidism, unspeci fied 252.00 [facility] [address] [id number] [address] [place] [address] Apr, [facility] [address] [id number] [address] [place] [address] Mar, [facility] [address] [id number] [address] [place] [address] Mar, [facility] [address] [id number] [address] [place] [address] Mar, Hyperparathyroidism, unspeci fied 252.00 [facility] [address] [id number] [address] [place] [address] Feb, [facility] [address] [facility] [id number] [address] [place] [address] Feb, Otalgia 388.70 [facility] [address] [id number] [address] [place] [address] Feb, [facility] [address] [facility] [id number] [address] [place] [address] Feb, [facility] [address] [id number] [address] [place] [address] Jan, [facility] [address] [id number] [address] [place] [address] Jan, Hyperparathyroidism, unspeci fied 252.00 [facility] [address] [id number] [address] [place] [address] Jan, [facility] [address] [id number] [address] [place] [address] Jan, Other B-complex deficiencies 266.2 and Hyperparathyroidism, unspecified 252.00 [facility] [address] [id number] [address] [place] [address] Jan, [facility] [address] [id number] [address] [place] [address] Jan, [facility] [address] [id number] [address] [place] [address] Jan, [facility] [address] [id number] [address] [place] [address] Dec, [facility] [address] [id number] [address] [place] [address] Dec, [facility] [address] [id number] [address] [place] [address] Dec, [facility] [address] [id number] [address] [place] [address] Nov, Routine check-up V70.0 and P re-op exam V72.84 [facility] [address] [id number] [address] [place] [address] Nov, [facility] [address] [id number] [address] [place] [address] Nov, [facility] [address] [id number] [address] [place] [address] October, [facility] [address] [id number] [address] [place] [address] October, Other B-complex deficiencies 266.2 [facility] [address] [id number] [address] [place] [address] October, [facility] [address] [id number] [address] [place] [address] 14 Sep, 2014 [facility] [address] [id number] [address] [place] [address], [place] [address] 13 Sep, 2014 [facility] [place] [facility] [address] [id number] [address] [place] [address], [place] [address] 20 Aug, 2014 [facility] [place] [facility] [address] [id number] [address] [place] [address], [place] [address] 20 Aug, 2014 [facility] [place] [facility] [address] [id number] [address] [place] [address], [place] [address] 17 Aug, 2014 [facility] [place] [facility] [address] [id number] [address] [place] [address], [place] [address] 17 Aug, 2014 [facility] [place] [facility] [address] [id number] [address] [place] [address], [place] [address] 11 Aug, 2014 [facility] [place] [facility] [address] [id number] [address] [place] [address], [place] [address] Aug, [facility] [place] [facility] [address] [id number] [address] [place] [address], [place] [address] 18 Jul, 2014 [facility] [place] [facility] [address] [id number] [address] [place] [address], [place] [address] 18 Jul, 2014 [facility] [place] [facility] [address] [id number] [address] [place] [address], [place] [address] 17 Jul, 2014 [facility] [place] [facility] [address] [id number] [address] [place] [address], [place] [address] 17 Jul, 2014 [facility] [place] [facility] [address] [id number] [address] [place] [address], [place] [address] 12 Jul, 2014 [facility] [place] [facility] [address] [id number] [address] [place] [address], [place] [address] 12 Jul, 2014 [facility] [place] [facility] [address] [id number] [address] [place] [address], [place] [address] 10 Jul, 2014 [facility] [address] [id number] [address] [place] [address], [place] [address] 10 Jul, 2014 [facility] [address] [id number] [address] [place] [address], [place] [address] Jul, 2014 [facility] [address] [id number] [address] [place] [address], [place] [address] Jul, 2014 [facility] [address] [id number] [address] [place] [address], [place] [address] Jul, 2014 [facility] [address] [id number] [address] [place] [address], [place] [address] Jul, 2014 [facility] [address] [id number] [address] [place] [address], [place] [address] Jul, [facility] [address] [id number] [address] [place] [address], [place] [address] Jul, [facility] [address] [id number] [address] [place] [address], [place] [address] Jun, [facility] [address] [id number] [address] [place] [address], [place] [address] Jun, [facility] [address] [id number] [address] [place] [address], [place] [address] Jun, [facility] [address] [id number] [address] [place] [address], [place] [address] Jun, [facility] [address] [id number] [address] [place] [id number] Jun, [facility] [address] [id number] [address] [place] [id number] Jun, [facility] [address] [id number] [address] [place] [address], [place] [address] Jun, [facility] [address] [id number] [address] [place] [address], [place] [address] Jun, [facility] [address] [id number] [address] [place] [id number] Jun, [facility] [address] [id number] [address] [place] [id number] Jun, [facility] [address] [id number] [address] [place] [address], [place] [address] Jun, [facility] [address] [id number] [address] [place] [address], [place] [address] Jun, [facility] [address] [id number] [address] [place] [address], [place] [address] Jun, [facility] [address] [id number] [address] [place] [address], [place] [address] Jun, [facility] [address] [id number] [address] [place] [address], [place] [address] May, [facility] [address] [id number] [address] [place] [address], [place] [address] May, [facility] [address] [id number] [address] [place] [address], [place] [address] May, [facility] [address] [id number] [address] [place] [address], [place] [address] May, [facility] [address] [id number] [address] [place] [address], [place] [address] Apr, [facility] [address] [id number] [address] [place] [address], [place] [address] Apr, [facility] [address] [id number] [address] [place] [address], [place] [address] Apr, [facility] [address] [id number] [address] [place] [address], [place] [address] Apr, [facility] [address] [id number] [address] [place] [address], [place] [address] Apr, [facility] [address] [id number] [address] [place] [address], [place] [address] Apr, [facility] [address] [id number] [address] [place] [address], [place] [address] 24 Mar, 2014 [facility] [address] [address] [id number] [address] [place] [address], [place] [address] 24 Mar, 2013 [facility] [address] [id number] [address] [place] [address], [place] [address] Mar, [facility] [address] [id number] [address] [place] [address], [place] [address] 22 Mar, 2014 [facility] [address] [id number] [address] [place] [address], [place] [address] 15 Mar, 2014 [facility] [address] [id number] [address] [place] [address], [place] [address] 15 Mar, 2014 [facility] [address] [id number] [address] [place] [address], [place] [address] Mar, [facility] [address] [id number] [address] [place] [address], [place] [address] 13 Mar, 2013 [facility] [address] [id number] [address] [place] [address], [place] [address] 07 Mar, 2013 [facility] [address] [id number] [address] [place] [address], [place] [address] 07 Mar, 2014 [facility] [address] [id number] [address] [place] [address], [place] [address] 07 Mar, 2013 [facility] [address] [id number] [address] [place] [address], [place] [address] 07 Mar, 2014 [facility] [address] [id number] [address] [place] [address], [place] [address] 06 Mar, 2013 [facility] [address] [id number] [address] [place] [address], [place] [address] 26 Feb, 2013 [facility] [address] [id number] [address] [place] [address], [place] [address] Feb, 2013 [facility] [address] [id number] [address] [place] [address], [place] [address] 23 Feb, 2013 [facility] [address] [id number] [address] [place] [address], [place] [address] 23 Feb, 2014 [facility] [address] [id number] [facility] [place] [address] 19 Feb, 2014 [facility] [address] [id number] [address] [place] [address], [place] [address] 19 Feb, 2014 [facility] [address] [id number] [address] [place] [address], [place] [address] 13 Feb, 2014 [facility] [address] [id number] [address] [place] [address], [place] [address] 13 Feb, 2014 [facility] [address] [id number] [address] [place] [address], [place] [address] Feb, [facility] [address] [id number] [address] [place] [address], [place] [address] Feb, [facility] [address] [id number] [address] [place] [address], [place] [address] Jan, [facility] [address] [id number] [address] [place] [address], [place] [address] Jan, [facility] [address] [id number] [address] [place] [address], [place] [address] Dec, [facility] [address] [id number] [address] [place] [address], [place] [address] Dec, [facility] [address] [id number] [address] [place] [address], [place] [address] Dec, [facility] [address] [id number] [address] [place] [address], [place] [address] Dec, [facility] [address] [id number] [address] [place] [address], [place] [address] Dec, [facility] [address] [id number] [address] [place] [address], [place] [address] Dec, [facility] [address] [id number] [address] [place] [address], [place] [address] 16 Nov, 2013 [facility] [address] [id number] [address] [place] [address], [place] [address] Nov, [facility] [address] [id number] [facility] [place] [address] Nov, [facility] [address] [id number] [facility] [place] [address] Nov, [facility] [address] [id number] [facility] [place] [address] October, [facility] [address] [id number] [facility] [place] [address] October, [facility] [address] [id number] [address] [place] [address], [place] [address] October, [facility] [address] [id number] [address] [place] [address], [place] [address] October, [facility] [address] [id number] [address] [place] [address], [place] [address] October, [facility] [address] [id number] [address] [place] [address], [place] [address] October, [facility] [address] [id number] [address] [place] [address], [place] [address] October, [facility] [address] [id number] [address] [place] [address], [place] [address] October, [facility] [address] [id number] [address] [place] [address], [place] [address] October, [facility] [address] [id number] [address] [place] [address], [place] [address] October, [facility] [address] [id number] [address] [place] [address], [place] [address] October, [facility] [address] [id number] [address] [place] [address], [place] [address] October, [facility] [address] [id number] [address] [place] [address], [place] [address] October, [facility] [address] [id number] [facility] [place] [address] October, [facility] [address] [id number] [facility] [place] [address] October, [facility] [address] [id number] [address] [place] [address], [place] [address] October, [facility] [address] [id number] [address] [place] [address], [place] [address] Sep, [facility] [address] [id number] [address] [place] [address], [place] [address] Sep, [facility] [address] [id number] [address] [place] [address], [place] [address] Sep, [facility] [address] [id number] [address] [place] [address], [place] [address] Sep, [facility] [address] [id number] [address] [place] [address], [place] [address] Sep, [facility] [address] [id number] [address] [place] [address], [place] [address] Sep, [facility] [address] [id number] [address] [place] [address], [place] [address] Aug, [facility] [address] [id number] [address] [place] [address], [place] [address] Aug, [facility] [address] [id number] [address] [place] [address], [place] [address] Aug, [facility] [address] [id number] [address] [place] [address], [place] [address] Aug, [facility] [address] [id number] [address] [place] [address], [place] [address] Aug, [facility] [address] [id number] [address] [place] [address], [place] [address] Aug, [facility] [address] [id number] [address] [place] [address], [place] [address] Jul, [facility] [address] [id number] [address] [place] [address], [place] [address] Jul, [facility] [address] [id number] [address] [place] [address], [place] [address] Jul, [facility] [address] [id number] [address] [place] [address], [place] [address] Jul, [facility] [address] [id number] [address] [place] [address], [place] [address] Jun, [facility] [address] [id number] [address] [place] [address], [place] [address] Jun, [facility] [address] [id number] [address] [place] [address], [place] [address] May, [facility] [address] [id number] [address] [place] [address], [place] [address] May, [facility] [address] [id number] [address] [place] [address], [place] [address] May, [facility] [address] [id number] [address] [place] [address], [place] [address] May, [facility] [address] [id number] [address] [place] [address], [place] [address] May, [facility] [address] [id number] [address] [place] [address], [place] [address] Apr, [facility] [address] [id number] [address] [place] [address], [place] [address] Apr, [facility] [address] [id number] [address] [place] [address], [place] [address] Apr, [facility] [address] [id number] [address] [place] [address], [place] [address] Apr, [facility] [address] [id number] [address] [place] [address], [place] [address] Apr, [facility] [address] [id number] [address] [place] [address], [place] [address] 04 Apr, 2013 [facility] [address] [id number] [address] [place] [address], [place] [address] 15 Mar, 2013 [facility] [address] [id number] [address] [place] [address], [place] [address] 15 Mar, 2013 [facility] [address] [id number] [address] [place] [address], [place] [address] 14 Mar, 2013 [facility] [address] [id number] [address] [place] [address], [place] [address] 14 Mar, 2013 [facility] [address] [id number] [address] [place] [address], [place] [address] Mar, [facility] [address] [id number] [address] [place] [address], [place] [address] Mar, [facility] [address] [id number] [address] [place] [address], [place] [address] 23 Feb, 2013 [facility] [address] [id number] [address] [place] [address], [place] [address] 19 Feb, 2013 [facility] [address] [id number] [address] [place] [address], [place] [address] 04 Feb, 2013 [facility] [address] [id number] [address] [place] [address], [place] [address] 30 Jan, 2013 [facility] [address] [id number] [address] [place] [address], [place] [address] Jan, [facility] [address] [id number] [address] [place] [address], [place] [address] Jan, [facility] [address] [id number] [address] [place] [address], [place] [address] Jan, [facility] [address] [id number] [address] [place] [address], [place] [address] Jan, [facility] [address] [id number] [address] [place] [address], [place] [address] Jan, [facility] [address] [id number] [address] [place] [address], [place] [address] Dec, [facility] [address] [id number] [address] [place] [address], [place] [address] Dec, [facility] [address] [id number] [address] [place] [address], [place] [address] Dec, [facility] [address] [id number] [address] [place] [address], [place] [address] Dec, [facility] [address] [id number] [address] [place] [address], [place] [address] Dec, [facility] [address] [id number] [address] [place] [address], [place] [address] Dec, [facility] [address] [id number] [address] [place] [address], [place] [address] Nov, [facility] [address] [id number] [address] [place] [address], [place] [address] Nov, [facility] [address] [id number] [address] [place] [address], [place] [address] Nov, [facility] [address] [id number] [address] [place] [address], [place] [address] Nov, [facility] [address] [id number] [address] [place] [address], [place] [address] Nov, [facility] [address] [id number] [address] [place] [address], [place] [address] Nov, [facility] [address] [id number] [address] [place] [address], [place] [address] October, [facility] [address] [id number] [address] [place] [address], [place] [address] October, [facility] [address] [id number] [address] [place] [address], [place] [address] October, [facility] [address] [id number] [address] [place] [address], [place] [address] 15 Oct, 2012 [facility] [address] [id number] [address] [place] [address], [place] [address] October, [facility] [address] [id number] [address] [place] [address], [place] [address] 30 Sep, 2012 [facility] [address] [id number] [address] [place] [address], [place] [address] Sep, [facility] [address] [id number] [address] [place] [address], [place] [address] Sep, [facility] [address] [id number] [address] [place] [address], [place] [address] 18 Sep, 2012 [facility] [address] [id number] [address] [place] [address], [place] [address] Sep, [facility] [address] [id number] [address] [place] [address], [place] [address] Aug, [facility] [address] [id number] [address] [place] [address], [place] [address] Aug, [facility] [address] [id number] [address] [place] [address], [place] [address] 04 Aug, 2012 [facility] [address] [id number] [address] [place] [address], [place] [address] Jul, [facility] [address] [id number] [address] [place] [address], [place] [address] 20 Jul, 2012 [facility] [address] [id number] [address] [place] [address], [place] [address] 11 Jul, 2012 [facility] [address] [id number] [address] [place] [address], [place] [address] 08 Jul, 2012 [facility] [address] [id number] [address] [place] [address], [place] [address] 06 Jul, 2012 [facility] [address] [id number] [address] [place] [address], [place] [address] Jul, [facility] [address] [id number] [address] [place] [address], [place] [address] Jun, [facility] [address] [id number] [address] [place] [address], [place] [address] Apr, [facility] [address] [id number] [address] [place] [address], [place] [address] Apr, [facility] [address] [id number] [address] [place] [address], [place] [address] Apr, [facility] [address] [id number] [address] [place] [address], [place] [address] Apr, [facility] [address] [id number] [address] [place] [address], [place] [address] Mar, [facility] [address] [id number] [address] [place] [address], [place] [address] Mar, [facility] [address] [id number] [address] [place] [address], [place] [address] Mar, [facility] [address] [id number] [address] [place] [address], [place] [address] Mar, [facility] [address] [id number] [address] [place] [address] Mar, [facility] [address] [id number] [address] [place] [address] Feb, [facility] [address] [id number] [address] [place] [address] Jan, [facility] [address] [id number] [address] [place] [address], [place] [address] Jan, [facility] [address] [id number] [address] [place] [address] Jan, [facility] [address] [id number] [address] [place] [address] Dec, [facility] [address] [id number] [address] [place] [address] Nov, [facility] [address] [id number] [address] [place] [address] Nov, [facility] [address] [id number] [address] [place] [address] Nov, [facility] [address] [id number] [address] [place] [address] Nov, [facility] [address] [id number] [address] [place] [address] Nov, [facility] [address] [id number] [address] [place] [address] October, [facility] [address] [id number] [address] [place] [address] October, [facility] [address] [facility] [id number] [address] [place] [address] October, [facility] [address] [id number] [address] [place] [id number] October, [facility] [address] [facility] [id number] [address] [place] [address] October, IMMUNIZATIONS No Known Immunizations SOCIAL HISTORY [...]
--- OUTSIDE RECORDS SUMMARY | 2020-01-25 08:07 | XMS REPORT ---
Author Author Velma CORDERO Organization [facility] Address [address] [place] [address] Care Team Providers Care Industrial Hygiene Technician Name Role Phone STEPHAN CORDERO Unavailable PROBLEMS Type Condition ICD9-CM Code [id number] Code Onset Dates Condition S tatus SNOMED Code Problem Hypercholesteremia E78.0 Active 1 1469253 Problem Arthritis M19.90 Active 4210403 Problem Hyperparathyroidism E21.3 Active 52214177 Problem Primary insomnia F51.01 Active 397 2004 Problem Myalgia M79.1 Active 58302228 Problem Chronic kidney disease, stage 4 (severe) N18.4 Active 774764241 Problem BPV (benign positional vertigo), bilateral H81.13 Active 255316471 Problem Corns L84 Active 598803451 Problem Mood disorder F39 Active 715984 05 Problem 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 Active 48049621 Problem 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 Active 93866271 ALLERGIES No Information ENCOUNTERS Encounter Location Date Diagnosis [place] [address] [place] [id number] [address] [place] [phone] Nov, Arthritis M19.90 [place] [address] [place] [id number] [address] [place] [phone] Nov, Labyrinthitis of left ear H8 3.02 [place] [address] [facility] [id number] [address] [place] [phone] Nov, BMI 40.0-44.9, adult Z68.41 ; Chronic kidney disease, stage 4 (severe) N18.4 and Acute right-sided thoracic back pain M54.6 [place] [address] [facility] [id number] [address] [place] [phone] October, Labyrinthitis of left ear H8 3.02 and Arthritis M19.90 [place] [address] [facility] [id number] [address] [place] [phone] Sep, BPV (benign positional verti go), bilateral H81.13 ; Dysfunction of left eustachian tube H69.82 and BMI 40.0-44.9, adult Z68.41 [facility] [address] [facility] [id number] [address] [place] [address] Sep, Labyrinthitis of left ear H8 3.02 and Arthritis M19.90 [facility] [address] [id number] [address] [place] [phone] Sep, [facility] [address] [facility] [id number] [address] [place] [address] Sep, [facility] [address] [facility] [id number] [address] [place] [phone] Sep, Chronic kidney disease, stag e 4 (severe) N18.4 [facility] [address] [facility] [id number] [address] [place] [phone] Sep, Chronic kidney disease, stag e 4 (severe) N18.4 [facility] [address] [facility] [id number] [address] [place] [address] Aug, Labyrinthitis of left ear H8 3.02 and Arthritis M19.90 [facility] [address] [facility] [id number] [address] [place] [phone] Aug, [facility] [address] [facility] [id number] [address] [place] [phone] Jul, [facility] [address] [facility] [id number] [address] [place] [address] Jul, Arthritis M19.90 and Labyrin thitis of left ear H83.02 [facility] [address] [facility] [id number] [address] [place] [address] Jul, [facility] [address] [place] [id number] [address] [place] [phone] Jun, [place] [address] [place] [id number] [address] [place] [address] Jun, Arthritis M19.90 and Labyrin thitis of left ear H83.02 [place] [address] [place] [id number] [address] [place] [address] Jun, Pre-op evaluation Z01.818 ; BMI 40.0-44.9, adult Z68.41 and Encounter for immunization Z23 [place] [address] [place] [id number] [address] [place] [address] May, Arthritis M19.90 and Labyrin thitis of left ear H83.02 [place] [address] [place] [id number] [place] [address] Apr, Labyrinthitis of left ear H8 3.02 [place] [address] [address] Apr, Arthritis M19.90 and Labyrin thitis of left ear H83.02 [place] [address] [address] Mar, Arthritis M19.90 and Labyrin thitis of left ear H83.02 [place] [address] [place] [id number] [address] [place] [address] Mar, Chronic kidney disease, stag e 4 (severe) N18.4 [place] [address] [place] [id number] [address] [place] [address] Feb, Arthritis M19.90 and Labyrin thitis of left ear H83.02 [place] [address] [place] [id number] [place] [address] Jan, Labyrinthitis of left ear H8 3.02 and 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 [place] [address] [place] [id number] [address] [place] [address] Dec, Arthritis M19.90 [facility] [address] [facility] [id number] [address] [place] [address] Dec, BPV (benign positional verti go), bilateral H81.13 [facility] [address] [facility] [id number] [address] [place] [address] Dec, [facility] [address] [place] [id number] [address] [place] [phone] Dec, [facility] [address] [facility] [id number] [address] [place] [phone] Dec, [facility] [address] [facility] [id number] [address] [place] [address] Nov, Arthritis M19.90 and Deficie ncy of other specified B group vitamins E53.8 [facility] [address] [facility] [id number] [address] [place] [address] Nov, Arthritis M19.90 [facility] [address] [facility] [id number] [address] [place] [address] Nov, Hyperparathyroidism E21.3 [facility] [address] [place] [id number] [place] [phone] October, [facility] [address] [place] [id number] [address] [place] [address] October, Hyperparathyroidism E21.3 [facility] [address] [place] [id number] [place] [address] October, [facility] [address] [place] [id number] [address] [place] [id number] October, Renal insufficiency N28.9 an d Hyperparathyroidism E21.3 [facility] [address] [facility] [id number] [address] [place] [address] October, [facility] [address] [place] [id number] [address] [place] [address] October, Renal insufficiency N28.9 an d Hyperparathyroidism E21.3 [facility] [address] [place] [id number] [address] [place] [address] October, Arthritis M19.90 [facility] [address] [facility] [id number] [address] [place] [phone] Sep, [facility] [address] [facility] [id number] [address] [place] [phone] Sep, Lumbar neuritis M54.16 ; Tho racic abscess J86.9 and 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 [facility] [address] [facility] [id number] [address] [place] [address] Sep, [facility] [address] [facility] [id number] [address] [place] [address] Aug, Arthritis M19.90 [facility] [address] [facility] [id number] [address] [place] [address] Aug, Hyperparathyroidism E21.3 [facility] [address] [facility] [id number] [address] [place] [phone] Aug, Hyperparathyroidism E21.3 [facility] [address] [facility] [id number] [address] [place] [address] Aug, Arthritis M19.90 [facility] [address] [facility] [id number] [address] [place] [address] Jul, Mass of throat R22.1 [facility] [address] [facility] [id number] [address] [place] [address] Jul, [facility] [address] [facility] [id number] [address] [place] [phone] Jul, Arthritis M19.90 [facility] [address] [facility] [id number] [address] [place] [address] Jun, Arthritis M19.90 [facility] [address] [facility] [id number] [address] [place] [phone] Jun, [facility] [address] [facility] [id number] [address] [place] [address] Jun, Renal insufficiency N28.9 an d 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 [facility] [address] [facility] [id number] [address] [place] [phone] 05 Jun, 2016 Medicare welcome exam Z00.00 ; Encounter for immunization Z23 ; Arthritis M19.90 ; Medicare annual wellness visit, initial Z00.00 ; Medicare annual wellness visit, subsequent Z00.00 and 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 [facility] [address] [facility] [id number] [address] [place] [phone] May, Renal insufficiency N28.9 an d 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 [facility] [address] [facility] [id number] [address] [place] [phone] May, Renal insufficiency N28.9 [facility] [address] [facility] [id number] [address] [place] [phone] May, Renal insufficiency N28.9 [facility] [address] [facility] [id number] [address] [place] [phone] May, [facility] [address] [facility] [id number] [address] [place] [address] Apr, [facility] [address] [facility] [id number] [address] [place] [phone] Apr, [facility] [address] [facility] [id number] [address] [place] [phone] Apr, Mass of throat R22.1 [facility] [address] [facility] [id number] [address] [place] [phone] 10 Apr, 2016 [facility] [address] [facility] [id number] [address] [place] [phone] 10 Apr, 2016 Mass of throat R22.1 [facility] [address] [facility] [id number] [address] [place] [phone] 04 Apr, 2016 Mass of throat R22.1 [facility] [address] [facility] [id number] [address] [place] [phone] Mar, [facility] [address] [id number] [address] [place] [phone] Mar, [facility] [address] [id number] [address] [place] [phone] Mar, [facility] [address] [facility] [id number] [address] [place] [phone] Mar, Parathyroid abnormality E21. 5 and Encounter for immunization Z23 [facility] [address] [id number] [address] [place] [phone] 17 Mar, 2016 [facility] [address] [id number] [address] [place] [phone] Mar, [facility] [address] [facility] [id number] [address] [place] [phone] 21 Feb, 2016 Renal insufficiency N28.9 an d Hyperparathyroidism E21.3 [facility] [address] [id number] [address] [place] [phone] 19 Feb, 2016 [facility] [address] [id number] [address] [place] [phone] 15 Feb, 2016 Renal insufficiency N28.9 an d Hyperparathyroidism E21.3 [facility] [address] [facility] [id number] [address] [place] [phone] 14 Feb, 2016 [facility] [address] [facility] [id number] [address] [place] [phone] 12 Feb, 2016 [facility] [address] [id number] [address] [place] [phone] 09 Feb, 2016 [facility] [address] [id number] [address] [place] [phone] Jan, [facility] [address] [facility] [id number] [address] [place] [phone] Jan, Arthritis M19.90 ; Lumbago w ith sciatica, right side M54.41 and Other chronic pain G89.29 [facility] [address] [facility] [id number] [address] [place] [phone] Jan, [place] [id number] [place] [address] Dec, Arthritis M19.90 ; Lumbago w ith sciatica, right side M54.41 and Other chronic pain G89.29 [place] [address] [place] [id number] [place] [phone] Nov, Deficiency of other specifie d B group vitamins E53.8 ; Primary insomnia F51.01 ; Mood disorder F39 and Lumbago with sciatica, right side M54.41 [place] [address] [place] [id number] [place] [phone] Nov, Hyperparathyroidism E21.3 [place] [address] [place] [id number] [place] [phone] Nov, Unspecified kidney failure N 19 and Hyperparathyroidism E21.3 [place] [address] [place] [id number] [place] [phone] October, Hyperparathyroidism E21.3 [place] [address] [place] [id number] [place] [phone] October, [place] [address] [place] [id number] [place] [phone] October, Hyperparathyroidism E21.3 [place] [address] [place] [id number] [place] [address] October, Hyperparathyroidism E21.3 [place] [address] [place] [id number] [place] [phone] Sep, Hyperparathyroidism E21.3 ; Hypercholesterolemia E78.0 and Arthritis M19.90 [facility] [address] [facility] [id number] [address] [place] [phone] Aug, [place] [address] [place] [id number] [address] [place] [address] Aug, Deficiency of other specifie d B group vitamins E53.8 [facility] [address] [facility] [id number] [address] [place] [address] Aug, [facility] [address] [facility] [id number] [address] [place] [phone] Jul, Urinary frequency R35.0 [facility] [address] [facility] [id number] [address] [place] [phone] Jul, Urinary frequency R35.0 [facility] [address] [facility] [id number] [address] [place] [phone] Jul, [facility] [address] [facility] [id number] [address] [place] [phone] Jul, [facility] [address] [facility] [id number] [address] [place] [phone] Jun, Pain in left knee M25.562 [facility] [address] [facility] [id number] [address] [place] [phone] Jun, [facility] [address] [facility] [id number] [address] [place] [address] May, Swelling of left knee joint M25.462 [facility] [address] [facility] [id number] [address] [place] [phone] May, [facility] [address] [facility] [id number] [address] [place] [id number] May, [facility] [address] [facility] [id number] [address] [place] [address] May, [facility] [address] [facility] [id number] [address] [place] [phone] Apr, Renal insufficiency N28.9 an d Chronic kidney disease, stage 4 (severe) N18.4 [facility] [address] [facility] [id number] [address] [place] [phone] Apr, Unspecified kidney failure N 19 [facility] [address] [id number] [address] [place] [phone] Apr, Unspecified kidney failure N 19 [facility] [address] [id number] [address] [place] [phone] Apr, [facility] [address] [id number] [address] [place] [phone] Apr, Hyperparathyroidism, unspeci fied 252.00 [facility] [address] [id number] [address] [place] [phone] Apr, [facility] [address] [id number] [address] [place] [phone] Mar, [facility] [address] [id number] [address] [place] [id number] Mar, [facility] [address] [facility] [id number] [address] [place] [phone] Mar, Hyperparathyroidism, unspeci fied 252.00 [facility] [address] [id number] [address] [place] [phone] Feb, [facility] [address] [id number] [address] [place] [phone] Feb, Otalgia 388.70 [facility] [address] [facility] [id number] [address] [place] [phone] Feb, [facility] [address] [id number] [address] [place] [phone] Feb, [facility] [address] [id number] [address] [place] [phone] Jan, [facility] [address] [id number] [address] [place] [phone] Jan, Hyperparathyroidism, unspeci fied 252.00 [facility] [address] [id number] [address] [place] [address] Jan, [facility] [address] [facility] [id number] [address] [place] [phone] Jan, Other B-complex deficiencies 266.2 and Hyperparathyroidism, unspecified 252.00 [facility] [address] [id number] [address] [place] [phone] Jan, [facility] [address] [id number] [address] [place] [phone] Jan, [facility] [address] [id number] [address] [place] [phone] Jan, [facility] [address] [id number] [address] [place] [phone] Dec, [facility] [address] [id number] [address] [place] [id number] Dec, [facility] [address] [id number] [address] [place] [phone] Dec, [facility] [address] [id number] [address] [place] [phone] Nov, Routine check-up V70.0 and P re-op exam V72.84 [facility] [address] [id number] [address] [place] [phone] Nov, [facility] [address] [id number] [address] [place] [phone] Nov, [facility] [address] [id number] [address] [place] [phone] October, [facility] [address] [id number] [address] [place] [phone] October, Other B-complex deficiencies 266.2 [facility] [address] [id number] [address] [place] [phone] October, [facility] [address] [id number] [address] [place] [phone] Sep, [facility] [address] [id number] [address] [place] [phone] Sep, [facility] [address] [id number] [facility] [place] [place] [address] 20 Aug, 2014 [facility] [address] [id number] [address] [place] [address], [place] [address] 20 Aug, 2014 [facility] [address] [id number] [address] [place] [address], [place] [address] 17 Aug, 2014 [facility] [address] [id number] [address] [place] [address], [place] [address] 17 Aug, 2014 [facility] [address] [id number] [address] [place] [address], [place] [address] 11 Aug, 2014 [facility] [address] [id number] [address] [place] [address], [place] [address] 11 Aug, 2014 [facility] [address] [id number] [address] [place] [address], [place] [address] 18 Jul, 2014 [facility] [address] [id number] [address] [place] [address], [place] [address] 18 Jul, 2014 [facility] [address] [id number] [address] [place] [address], [place] [address] 17 Jul, 2014 [facility] [address] [id number] [address] [place] [address], [place] [address] 17 Jul, 2014 [facility] [address] [id number] [address] [place] [address], [place] [address] 12 Jul, 2014 [facility] [address] [id number] [address] [place] [address], [place] [address] 12 Jul, 2014 [facility] [address] [id number] [address] [place] [address], [place] [address] 10 Jul, 2014 [facility] [address] [id number] [address] [place] [address], [place] [address] 10 Jul, 2014 [facility] [address] [id number] [address] [place] [address], [place] [address] 09 Jul, 2014 [facility] [address] [id number] [address] [place] [address] [place] [address] Jul, [facility] [address] [id number] [address] [place] [address], [place] [address] Jul, [facility] [address] [id number] [address] [place] [address], [place] [address] Jul, [facility] [address] [id number] [address] [place] [address], [place] [address] Jul, [facility] [address] [id number] [address] [place] [address], [place] [address] Jul, [facility] [address] [id number] [address] [place] [address], [place] [address] Jun, [facility] [address] [id number] [address] [place] [address], [place] [address] Jun, [facility] [address] [id number] [address] [place] [address], [place] [address] Jun, [facility] [address] [id number] [address] [place] [address], [place] [address] Jun, [facility] [address] [id number] [address] [place] [address], [place] [address] Jun, [facility] [address] [id number] [address] [place] [address], [place] [address] Jun, [facility] [address] [id number] [address] [place] [address], [place] [address] Jun, [facility] [address] [id number] [address] [place] [address], [place] [address] Jun, [facility] [address] [id number] [address] [place] [address], [place] [address] Jun, [facility] [address] [id number] [address] [place] [address], [place] [address] Jun, [facility] [address] [id number] [address] [place] [address], [place] [address] Jun, [facility] [address] [id number] [address] [place] [address], [place] [address] Jun, [facility] [address] [id number] [address] [place] [address], [place] [address] Jun, [facility] [address] [id number] [address] [place] [address], [place] [address] Jun, [facility] [address] [id number] [address] [place] [address], [place] [address] May, [facility] [address] [id number] [address] [place] [address], [place] [address] May, [facility] [address] [id number] [address] [place] [address], [place] [address] May, [facility] [address] [id number] [address] [place] [address], [place] [address] May, [facility] [address] [id number] [address] [place] [address], [place] [address] Apr, [facility] [address] [id number] [address] [place] [address], [place] [address] Apr, [facility] [address] [id number] [address] [place] [address], [place] [address] Apr, [facility] [address] [id number] [address] [place] [address], [place] [address] Apr, [facility] [address] [id number] [address] [place] [address], [place] [address] Apr, [facility] [address] [id number] [address] [place] [address], [place] [address] Apr, [facility] [address] [id number] [address] [place] [address], [place] [address] Mar, [facility] [address] [id number] [address] [place] [address], [place] [address] Mar, [facility] [address] [id number] [address] [place] [address] 22 Mar, 2014 [facility] [address] [id number] [address] [place] [address], [place] [address] 22 Mar, 2014 [facility] [address] [id number] [address] [place] [address] 15 Mar, 2014 [facility] [address] [id number] [address] [place] [address], [place] [address] 15 Mar, 2014 [facility] [address] [id number] [address] [place] [address] 13 Mar, 2014 [facility] [address] [id number] [address] [place] [address], [place] [address] 13 Mar, 2014 [facility] [address] [id number] [address] [place] [address], [place] [address] 07 Mar, 2014 [facility] [address] [id number] [address] [place] [address] 07 Mar, 2014 [facility] [address] [id number] [address] [place] [address], [place] [address] 07 Mar, 2014 [facility] [address] [id number] [address] [place] [address] 07 Mar, 2014 [facility] [address] [id number] [address] [place] [address] 06 Mar, 2014 [facility] [address] [id number] [address] [place] [address] 26 Feb, 2013 [facility] [address] [id number] [address] [place] [address] 26 Feb, 2013 [facility] [address] [id number] [address] [place] [address], [place] [address] 23 Feb, 2013 [facility] [address] [id number] [address] [place] [address], [place] [address] 23 Feb, 2013 [facility] [address] [id number] [address] [place] [address], [place] [address] 19 Feb, 2013 [facility] [address] [id number] [facility] [place] [address] 19 Feb, 2014 [facility] [address] [id number] [facility] [place] [address] 13 Feb, 2014 [facility] [address] [id number] [address] [place] [address], [place] [address] 13 Feb, 2014 [facility] [address] [id number] [address] [place] [address], [place] [address] 12 Feb, 2014 [facility] [address] [id number] [address] [place] [address], [place] [address] Feb, [facility] [address] [id number] [address] [place] [address], [place] [address] Jan, [facility] [address] [id number] [address] [place] [address], [place] [address] Jan, [facility] [address] [id number] [address] [place] [address], [place] [address] Dec, [facility] [address] [id number] [address] [place] [address], [place] [address] Dec, [facility] [address] [id number] [address] [place] [address], [place] [address] Dec, [facility] [address] [id number] [address] [place] [address], [place] [address] Dec, [facility] [address] [id number] [address] [place] [address], [place] [address] Dec, [facility] [address] [id number] [address] [place] [address], [place] [address] Dec, [facility] [address] [id number] [address] [place] [address], [place] [address] Nov, [facility] [address] [id number] [address] [place] [address], [place] [address] Nov, [facility] [address] [id number] [address] [place] [address], [place] [address] Nov, [facility] [address] [id number] [facility] [place] [place] [address] Nov, [facility] [address] [id number] [address] [place] [address], [place] [address] October, [facility] [address] [id number] [address] [place] [address], [place] [address] October, [facility] [address] [id number] [address] [place] [address], [place] [address] October, [facility] [address] [id number] [address] [place] [address], [place] [address] October, [facility] [address] [id number] [address] [place] [address], [place] [address] October, [facility] [address] [id number] [address] [place] [address], [place] [address] October, [facility] [address] [id number] [address] [place] [address], [place] [address] October, [facility] [address] [id number] [address] [place] [address], [place] [address] October, [facility] [address] [id number] [address] [place] [address], [place] [address] October, [facility] [address] [id number] [address] [place] [address], [place] [address] October, [facility] [address] [id number] [address] [place] [address], [place] [address] October, [facility] [address] [id number] [address] [place] [address], [place] [address] October, [facility] [address] [id number] [address] [place] [address], [place] [address] October, [facility] [address] [id number] [address] [place] [address], [place] [address] October, [facility] [address] [id number] [address] [place] [address], [place] [address] October, [facility] [address] [id number] [address] [place] [address], [place] [address] October, [facility] [address] [id number] [address] [place] [address], [place] [address] Sep, [facility] [address] [id number] [address] [place] [address], [place] [address] Sep, [facility] [address] [id number] [address] [place] [address], [place] [address] Sep, [facility] [address] [id number] [address] [place] [address], [place] [address] Sep, [facility] [address] [id number] [address] [place] [address], [place] [address] Sep, [facility] [address] [id number] [address] [place] [address], [place] [address] Sep, [facility] [address] [id number] [address] [place] [address], [place] [address] Aug, [facility] [address] [id number] [address] [place] [address], [place] [address] Aug, [facility] [address] [id number] [address] [place] [address], [place] [address] Aug, [facility] [address] [id number] [address] [place] [address], [place] [address] Aug, [facility] [address] [id number] [address] [place] [address], [place] [address] Aug, [facility] [address] [id number] [address] [place] [address], [place] [address] Aug, [facility] [address] [id number] [address] [place] [address], [place] [address] Jul, [facility] [address] [id number] [address] [place] [address], [place] [address] Jul, [facility] [address] [id number] [address] [place] [address], [place] [address] Jul, [facility] [address] [id number] [address] [place] [address], [place] [address] Jul, [facility] [address] [id number] [address] [place] [address], [place] [address] Jun, [facility] [address] [id number] [address] [place] [address], [place] [address] Jun, [facility] [address] [id number] [address] [place] [address], [place] [address] May, [facility] [address] [id number] [address] [place] [address], [place] [address] May, [facility] [address] [id number] [address] [place] [address], [place] [address] May, [facility] [address] [id number] [address] [place] [address], [place] [address] May, [facility] [address] [id number] [address] [place] [address], [place] [address] May, [facility] [address] [id number] [address] [place] [address], [place] [address] Apr, [facility] [address] [id number] [address] [place] [address], [place] [address] Apr, [facility] [address] [id number] [address] [place] [address] Apr, [facility] [address] [id number] [address] [place] [address], [place] [address] Apr, [facility] [address] [id number] [address] [place] [address], [place] [address] Apr, [facility] [address] [id number] [address] [place] [address], [place] [address] Apr, [facility] [address] [id number] [address] [place] [address] 15 Mar, 2013 [facility] [address] [id number] [address] [place] [address], [place] [address] 15 Mar, 2013 [facility] [address] [id number] [address] [place] [address], [place] [address] 14 Mar, 2013 [facility] [address] [id number] [address] [place] [address], [place] [address] 14 Mar, 2013 [facility] [address] [id number] [address] [place] [address], [place] [address] 11 Mar, 2013 [facility] [address] [id number] [address] [place] [address], [place] [address] Mar, [facility] [address] [id number] [address] [place] [address], [place] [address] 23 Feb, 2013 [facility] [address] [id number] [address] [place] [address], [place] [address] Feb, [facility] [address] [id number] [address] [place] [address], [place] [address] 04 Feb, 2013 [facility] [address] [id number] [address] [place] [address], [place] [address] Jan, [facility] [address] [id number] [address] [place] [address], [place] [address] Jan, [facility] [address] [id number] [address] [place] [address], [place] [address] Jan, [facility] [address] [id number] [address] [place] [address], [place] [address] Jan, [facility] [address] [id number] [address] [place] [address], [place] [address] Jan, [facility] [address] [id number] [address] [place] [address], [place] [address] Jan, [facility] [address] [id number] [address] [place] [address], [place] [address] Dec, [facility] [address] [id number] [address] [place] [address], [place] [address] Dec, [facility] [address] [id number] [address] [place] [address], [place] [address] Dec, [facility] [address] [id number] [address] [place] [address], [place] [address] Dec, [facility] [address] [id number] [address] [place] [address], [place] [address] Dec, [facility] [address] [id number] [address] [place] [address], [place] [address] Dec, [facility] [address] [id number] [address] [place] [address], [place] [address] Nov, [facility] [address] [id number] [address] [place] [address], [place] [address] Nov, [facility] [address] [id number] [address] [place] [address], [place] [address] Nov, [facility] [address] [id number] [address] [place] [address], [place] [address] Nov, [facility] [address] [id number] [address] [place] [address], [place] [address] Nov, [facility] [address] [id number] [address] [place] [address], [place] [address] Nov, [facility] [address] [id number] [address] [place] [address], [place] [address] October, [facility] [address] [id number] [address] [place] [address], [place] [address] October, [facility] [address] [id number] [address] [place] [address], [place] [address] October, [facility] [address] [id number] [address] [place] [address], [place] [address] October, [facility] [address] [id number] [address] [place] [address], [place] [address] October, [facility] [address] [id number] [address] [place] [address], [place] [address] 30 Sep, 2012 [facility] [address] [id number] [address] [place] [address], [place] [address] Sep, [facility] [address] [id number] [address] [place] [address], [place] [address] Sep, [facility] [address] [id number] [address] [place] [address], [place] [address] 18 Sep, 2012 [facility] [address] [id number] [address] [place] [address], [place] [address] Sep, [facility] [address] [id number] [address] [place] [address], [place] [address] 26 Aug, 2012 [facility] [address] [id number] [address] [place] [address], [place] [address] Aug, [facility] [address] [id number] [address] [place] [address], [place] [address] 04 Aug, 2012 [facility] [address] [id number] [address] [place] [address], [place] [address] Jul, [facility] [address] [id number] [address] [place] [address], [place] [address] Jul, [facility] [address] [id number] [address] [place] [address], [place] [address] Jul, [facility] [address] [id number] [address] [place] [address], [place] [address] 08 Jul, 2012 [facility] [address] [id number] [address] [place] [address], [place] [address] 06 Jul, 2012 [facility] [address] [id number] [address] [place] [address], [place] [address] 05 Jul, 2012 [facility] [address] [id number] [address] [place] [address], [place] [address] 15 Jun, 2012 [facility] [address] [id number] [address] [place] [address], [place] [address] Apr, [facility] [address] [id number] [address] [place] [address], [place] [address] Apr, [facility] [address] [id number] [address] [place] [address], [place] [address] Apr, [facility] [address] [id number] [address] [place] [address], [place] [address] Apr, [facility] [address] [id number] [address] [place] [address], [place] [address] Mar, [facility] [address] [id number] [address] [place] [address], [place] [address] Mar, [facility] [address] [id number] [address] [place] [address], [place] [address] Mar, [facility] [address] [id number] [address] [place] [address], [place] [address] Mar, [facility] [address] [id number] [address] [place] [address], [place] [address] Mar, [facility] [address] [id number] [address] [place] [address], [place] [address] Feb, [facility] [address] [id number] [address] [place] [address], [place] [address] Jan, [facility] [address] [id number] [address] [place] [address], [place] [address] Jan, [facility] [address] [id number] [address] [place] [address], [place] [address] Jan, [facility] [address] [id number] [address] [place] [address], [place] [address] Dec, [facility] [address] [id number] [address] [place] [address], [place] [address] Nov, [facility] [address] [id number] [address] [place] [address], [place] [address] Nov, [facility] [address] [id number] [address] [place] [address] Nov, [facility] [address] [id number] [address] [place] [address] Nov, [facility] [address] [facility] [id number] [address] [place] [address] Nov, [facility] [address] [id number] [address] [place] [address] October, [facility] [address] [facility] [id number] [address] [place] [address] October, [facility] [address] [facility] [id number] [address] [place] [address] October, [facility] [address] [facility] [id number] [address] [place] [address] October, [facility] [address] [facility] [id number] [address] [place] [address] October, IMMUNIZATIONS No Known Immunizations SOCIAL HISTORY Never Assessed REASON FOR VISIT MTM (Medication Therapy Management) PLAN OF CARE VITAL SIGNS MEDICATIONS Unknown [...]
--- OUTSIDE RECORDS SUMMARY | 2020-01-25 08:07 | XMS REPORT ---
Author Author Velma CEE Organization [facility] Address [address] [place] [address] Care Team Providers Care Biology Professor Name Role Phone TERRI CEE Unavailable PROBLEMS Type Condition ICD9-CM Code GUQ70-PR Code Onset Dates Condition S tatus SNOMED Code Problem Hypercholesteremia E78.0 Active 1 6870968 Problem Arthritis M19.90 Active 8982398 Problem Hyperparathyroidism E21.3 Active 01571273 Problem Primary insomnia F51.01 Active 397 2004 Problem Myalgia M79.1 Active 07973645 Problem Chronic kidney disease, stage 4 (severe) N18.4 Active 991411937 Problem BPV (benign positional vertigo), bilateral H81.13 Active 398594979 Problem Corns L84 Active 101189331 Problem Mood disorder F39 Active 593109 05 Problem 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 Active 83915537 Problem 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 Active 72652291 ALLERGIES No Information ENCOUNTERS Encounter Location Date Diagnosis [place] [address] [place] [id number] [place] [address] Dec, Labyrinthitis of left ear H8 3.02 [place] [address] [place] [id number] [place] [address] Nov, Arthritis M19.90 [place] [address] [facility] [id number] [address] [place] [address] Nov, Labyrinthitis of left ear H8 3.02 [place] [address] [place] [id number] [place] [address] Nov, BMI 40.0-44.9, adult Z68.41 ; Chronic kidney disease, stage 4 (severe) N18.4 and Acute right-sided thoracic back pain M54.[address] [id number] [address] [place] [address] October, Labyrinthitis of left ear H8 3.02 and Arthritis M19.90 [place] [address] [place] [id number] [place] [address] Sep, BPV (benign positional verti go), bilateral H81.13 ; Dysfunction of left eustachian tube H69.82 and BMI 40.0-44.9, adult Z68.41 [place] [address] [address] Sep, Labyrinthitis of left ear H8 3.02 and Arthritis M19.90 [place] [address] [place] [id number] [place] [address] Sep, [place] [address] [address] Sep, [place] [address] [place] [id number] [place] [address] Sep, Chronic kidney disease, stag e 4 (severe) N18.4 [place] [address] [place] [id number] [place] [address] Sep, Chronic kidney disease, stag e 4 (severe) N18.4 [place] [address] [place] [id number] [place] [address] Aug, Labyrinthitis of left ear H8 3.02 and Arthritis M19.90 [facility] [address] [place] [id number] [place] [address] Aug, [place] [address] [place] [id number] [place] [address] Jul, [place] [address] [place] [id number] [place] [address] Jul, Arthritis M19.90 and Labyrin thitis of left ear H83.02 [place] [address] [place] [id number] [place] [address] Jul, [place] [address] [address] Jun, [place] [address] [address] Jun, Arthritis M19.90 and Labyrin thitis of left ear H83.02 [place] [address] [address] Jun, Pre-op evaluation Z01.818 ; BMI 40.0-44.9, adult Z68.41 and Encounter for immunization Z23 [place] [address] [address] May, Arthritis M19.90 and Labyrin thitis of left ear H83.02 [place] [address] [address] Apr, Labyrinthitis of left ear H8 3.02 [place] [address] [address] Apr, Arthritis M19.90 and Labyrin thitis of left ear H83.02 [place] [address] [address] Mar, Arthritis M19.90 and Labyrin thitis of left ear H83.02 [place] [address] [address] Mar, Chronic kidney disease, stag e 4 (severe) N18.4 [place] [address] [place] [id number] [place] [address] Feb, Arthritis M19.90 and Labyrin thitis of left ear H83.02 [place] [address] [place] [id number] [place] [address] Jan, Labyrinthitis of left ear H8 3.02 and 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 [facility] [address] [id number] [address] [place] [address] Dec, Arthritis M19.90 [facility] [address] [facility] [id number] [address] [place] [address] Dec, BPV (benign positional verti go), bilateral H81.13 [facility] [address] [facility] [id number] [address] [place] [address] Dec, [facility] [address] [id number] [address] [place] [address] Dec, [facility] [address] [facility] [id number] [address] [place] [address] Dec, [facility] [address] [facility] [id number] [address] [place] [address] Nov, Arthritis M19.90 and Deficie ncy of other specified B group vitamins E53.8 [facility] [address] [id number] [address] [place] [address] Nov, Arthritis M19.90 [facility] [address] [facility] [id number] [address] [place] [address] Nov, Hyperparathyroidism E21.3 [facility] [address] [facility] [id number] [address] [place] [address] October, [facility] [address] [facility] [id number] [address] [place] [address] October, Hyperparathyroidism E21.3 [facility] [address] [facility] [id number] [address] [place] [address] October, [facility] [address] [facility] [id number] [address] [place] [address] October, Renal insufficiency N28.9 an d Hyperparathyroidism E21.3 [facility] [address] [facility] [id number] [address] [place] [address] October, [facility] [address] [place] [id number] [address] [place] [address] October, Renal insufficiency N28.9 an d Hyperparathyroidism E21.3 [facility] [address] [place] [id number] [address] [place] [address] October, Arthritis M19.90 [facility] [address] [place] [id number] [address] [place] [address] Sep, [facility] [address] [address] Sep, Lumbar neuritis M54.16 ; Tho racic abscess J86.9 and 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 [facility] [address] [facility] [id number] [address] [place] [address] Sep, [facility] [address] [place] [id number] [address] [place] [address] Aug, Arthritis M19.90 [facility] [address] [place] [id number] [address] [place] [address] Aug, Hyperparathyroidism E21.3 [facility] [address] [address] Aug, Hyperparathyroidism E21.3 [facility] [address] [place] [id number] [place] [address] Aug, Arthritis M19.90 [facility] [id number] [place] [address] Jul, Mass of throat R22.1 [facility] [address] [facility] [id number] [address] [place] [address] Jul, [facility] [address] [place] [id number] [place] [address] Jul, Arthritis M19.90 [facility] [address] [place] [id number] [place] [address] Jun, Arthritis M19.90 [facility] [address] [facility] [id number] [address] [place] [address] 13 Jun, 2016 [facility] [address] [facility] [id number] [address] [place] [address] 09 Jun, 2016 Renal insufficiency N28.9 an d Parathyroid abnormality E21.5 [facility] [address] [facility] [id number] [address] [place] [address] 05 Jun, 2016 Medicare welcome exam Z00.00 ; Encounter for immunization Z23 ; Arthritis M19.90 ; Medicare annual wellness visit, initial Z00.00 ; Medicare annual wellness visit, subsequent Z00.00 and 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 [facility] [address] [facility] [id number] [address] [place] [address] 29 May, 2016 Renal insufficiency N28.9 an d Parathyroid abnormality E21.5 [facility] [address] [facility] [id number] [address] [place] [address] May, Renal insufficiency N28.9 [facility] [address] [facility] [id number] [address] [place] [address] May, Renal insufficiency N28.9 [facility] [address] [facility] [id number] [address] [place] [address] May, [facility] [address] [facility] [id number] [address] [place] [address] Apr, [facility] [address] [facility] [id number] [address] [place] [address] 16 Apr, 2016 [facility] [address] [facility] [id number] [address] [place] [address] 14 Apr, 2016 Mass of throat R22.1 [facility] [address] [facility] [id number] [address] [place] [address] 10 Apr, 2016 [facility] [address] [facility] [id number] [address] [place] [address] 10 Apr, 2016 Mass of throat R22.1 [facility] [address] [facility] [id number] [address] [place] [address] Apr, Mass of throat R22.1 [facility] [address] [id number] [address] [place] [address] Mar, [facility] [address] [facility] [id number] [address] [place] [address] Mar, [facility] [address] [facility] [id number] [address] [place] [address] Mar, [facility] [address] [facility] [id number] [address] [place] [address] 24 Mar, 2016 Parathyroid abnormality E21. 5 and Encounter for immunization Z23 [facility] [address] [facility] [id number] [address] [place] [address] Mar, [facility] [address] [facility] [id number] [address] [place] [address] Mar, [facility] [address] [facility] [id number] [address] [place] [address] 21 Feb, 2016 Renal insufficiency N28.9 an d Hyperparathyroidism E21.3 [facility] [address] [facility] [id number] [address] [place] [address] 19 Feb, 2016 [facility] [address] [facility] [id number] [address] [place] [address] 15 Feb, 2016 Renal insufficiency N28.9 an d Hyperparathyroidism E21.3 [facility] [address] [id number] [address] [place] [address] 14 Feb, 2016 [facility] [address] [facility] [id number] [address] [place] [address] 12 Feb, 2016 [facility] [address] [facility] [id number] [address] [place] [address] 09 Feb, 2016 [facility] [address] [facility] [id number] [address] [place] [address] 17 Jan, 2016 [facility] [address] [facility] [id number] [address] [place] [address] Jan, Arthritis M19.90 ; Lumbago w ith sciatica, right side M54.41 and Other chronic pain G89.29 [facility] [address] [facility] [id number] [address] [place] [address] Jan, [facility] [address] [facility] [id number] [address] [place] [address] Dec, Arthritis M19.90 ; Lumbago w ith sciatica, right side M54.41 and Other chronic pain G89.29 [facility] [address] [facility] [id number] [address] [place] [address] 16 Nov, 2015 Deficiency of other specifie d B group vitamins E53.8 ; Primary insomnia F51.01 ; Mood disorder F39 and Lumbago with sciatica, right side M54.41 [place] [address] [facility] [id number] [address] [place] [address] Nov, Hyperparathyroidism E21.3 [place] [address] [facility] [id number] [address] [place] [address] Nov, Unspecified kidney failure N 19 and Hyperparathyroidism E21.3 [place] [address] [facility] [id number] [address] [place] [address] October, Hyperparathyroidism E21.3 [place] [address] [facility] [id number] [address] [place] [address] October, [facility] [address] [facility] [id number] [address] [place] [address] October, Hyperparathyroidism E21.3 [facility] [address] [facility] [id number] [address] [place] [address] October, Hyperparathyroidism E21.3 [place] [address] [facility] [id number] [address] [place] [address] Sep, Hyperparathyroidism E21.3 ; Hypercholesterolemia E78.0 and Arthritis M19.90 [place] [address] [facility] [id number] [address] [place] [address] Aug, [facility] [address] [facility] [id number] [address] [place] [address] Aug, Deficiency of other specifie d B group vitamins E53.8 [facility] [address] [facility] [id number] [address] [place] [address] Aug, [facility] [address] [facility] [id number] [address] [place] [address] Jul, Urinary frequency R35.0 [facility] [address] [facility] [id number] [address] [place] [address] Jul, Urinary frequency R35.0 [facility] [address] [facility] [id number] [address] [place] [address] Jul, [facility] [address] [facility] [id number] [address] [place] [address] Jul, [facility] [address] [facility] [id number] [address] [place] [address] Jun, Pain in left knee M25.562 [facility] [address] [facility] [id number] [address] [place] [address] Jun, [facility] [address] [facility] [id number] [address] [place] [address] May, Swelling of left knee joint M25.462 [facility] [address] [facility] [id number] [address] [place] [address] May, [facility] [address] [facility] [id number] [address] [place] [address] May, [facility] [address] [facility] [id number] [address] [place] [address] May, [facility] [address] [facility] [id number] [address] [place] [address] Apr, Renal insufficiency N28.9 an d Chronic kidney disease, stage 4 (severe) N18.4 [facility] [address] [id number] [address] [place] [address] Apr, Unspecified kidney failure N 19 [facility] [address] [id number] [address] [place] [address] Apr, Unspecified kidney failure N 19 [facility] [address] [facility] [id number] [address] [place] [address] Apr, [facility] [address] [id number] [address] [place] [address] Apr, Hyperparathyroidism, unspeci fied 252.00 [facility] [address] [id number] [address] [place] [address] Apr, [facility] [address] [facility] [id number] [address] [place] [address] Mar, [facility] [address] [facility] [id number] [address] [place] [address] Mar, [facility] [address] [id number] [address] [place] [address] Mar, Hyperparathyroidism, unspeci fied 252.00 [facility] [address] [id number] [address] [place] [address] Feb, [facility] [address] [facility] [id number] [address] [place] [address] Feb, Otalgia 388.70 [facility] [address] [facility] [id number] [address] [place] [address] Feb, [facility] [address] [facility] [id number] [address] [place] [address] Feb, [facility] [address] [facility] [id number] [address] [place] [address] Jan, [facility] [address] [facility] [id number] [address] [place] [address] Jan, Hyperparathyroidism, unspeci fied 252.00 [facility] [address] [id number] [address] [place] [address] Jan, [facility] [address] [id number] [address] [place] [address] Jan, Other B-complex deficiencies 266.2 and Hyperparathyroidism, unspecified 252.00 [facility] [address] [id number] [address] [place] [address] Jan, [facility] [address] [id number] [address] [place] [address] Jan, [facility] [address] [id number] [address] [place] [address] Jan, [facility] [address] [id number] [address] [place] [address] Dec, [facility] [address] [id number] [address] [place] [address] Dec, [facility] [address] [id number] [address] [place] [address] Dec, [facility] [address] [id number] [address] [place] [address] Nov, Routine check-up V70.0 and P re-op exam V72.84 [facility] [address] [id number] [address] [place] [address] Nov, [facility] [address] [id number] [address] [place] [address] Nov, [facility] [address] [id number] [address] [place] [address] October, [facility] [address] [id number] [address] [place] [address] October, Other B-complex deficiencies 266.2 [facility] [address] [id number] [address] [place] [address] October, [facility] [address] [id number] [address] [place] [address] 14 Sep, 2014 [facility] [address] [id number] [address] [place] [address], [place] [address] 13 Sep, 2014 [facility] [address] [id number] [address] [place] [address], [place] [address] 20 Aug, 2014 [facility] [address] [id number] [address] [place] [address], [place] [address] 20 Aug, 2014 [facility] [address] [id number] [address] [place] [address], [place] [address] 17 Aug, 2014 [facility] [address] [id number] [address] [place] [address], [place] [address] 17 Aug, 2014 [facility] [address] [id number] [address] [place] [address], [place] [address] 11 Aug, 2014 [facility] [address] [id number] [address] [place] [address], [place] [address] 11 Aug, 2014 [facility] [address] [id number] [address] [place] [address], [place] [address] 18 Jul, 2014 [facility] [address] [id number] [address] [place] [address], [place] [address] 18 Jul, 2014 [facility] [address] [id number] [address] [place] [address], [place] [address] 17 Jul, 2014 [facility] [address] [id number] [address] [place] [address], [place] [address] 17 Jul, 2014 [facility] [address] [id number] [address] [place] [address] 12 Jul, 2014 [facility] [address] [id number] [address] [place] [address], [place] [address] 12 Jul, 2014 [facility] [address] [id number] [address] [place] [address], [place] [address] 10 Jul, 2014 [facility] [address] [id number] [address] [place] [address] 10 Jul, 2014 [facility] [address] [id number] [address] [place] [address], [place] [address] Jul, [facility] [address] [id number] [address] [place] [address], [place] [address] Jul, [facility] [address] [id number] [address] [place] [address], [place] [address] Jul, 2014 [facility] [address] [id number] [address] [place] [address], [place] [address] Jul, [facility] [address] [id number] [address] [place] [address], [place] [address] Jul, [facility] [address] [id number] [address] [place] [address], [place] [address] Jul, [facility] [address] [id number] [address] [place] [address], [place] [address] Jun, [facility] [address] [id number] [address] [place] [address], [place] [address] Jun, [facility] [address] [id number] [address] [place] [address], [place] [address] Jun, [facility] [address] [id number] [address] [place] [address], [place] [address] Jun, [facility] [address] [id number] [address] [place] [address], [place] [address] Jun, [facility] [address] [id number] [address] [place] [address] Jun, [facility] [address] [id number] [address] [place] [address], [place] [address] Jun, [facility] [address] [id number] [address] [place] [address], [place] [address] Jun, [facility] [address] [id number] [address] [place] [address], [place] [address] Jun, [facility] [address] [id number] [address] [place] [address], [place] [address] Jun, [facility] [address] [id number] [address] [place] [address], [place] [address] Jun, [facility] [address] [id number] [address] [place] [address], [place] [address] Jun, [facility] [address] [id number] [address] [place] [address], [place] [address] Jun, [facility] [address] [id number] [address] [place] [address], [place] [address] Jun, [facility] [address] [id number] [address] [place] [address], [place] [address] May, [facility] [address] [id number] [address] [place] [address], [place] [address] May, [facility] [address] [id number] [address] [place] [address], [place] [address] May, [facility] [address] [id number] [address] [place] [address], [place] [address] May, [facility] [address] [id number] [address] [place] [address], [place] [address] Apr, [facility] [address] [id number] [address] [place] [address], [place] [address] Apr, [facility] [address] [id number] [address] [place] [address], [place] [address] Apr, [facility] [address] [id number] [address] [place] [address], [place] [address] Apr, [facility] [address] [id number] [address] [place] [address], [place] [address] Apr, [facility] [address] [id number] [address] [place] [address], [place] [address] Apr, [facility] [address] [id number] [address] [place] [address], [place] [address] 24 Mar, 2014 [facility] [address] [id number] [address] [place] [address], [place] [address] 24 Mar, 2014 [facility] [address] [id number] [address] [place] [address], [place] [address] Mar, [facility] [address] [id number] [address] [place] [address], [place] [address] Mar, [facility] [address] [id number] [address] [place] [address], [place] [address] 15 Mar, 2014 [facility] [address] [id number] [address] [place] [address], [place] [address] 15 Mar, 2014 [facility] [address] [id number] [address] [place] [address], [place] [address] Mar, [facility] [address] [id number] [address] [place] [address], [place] [address] Mar, [facility] [address] [id number] [address] [place] [address], [place] [address] Mar, [facility] [address] [id number] [address] [place] [address], [place] [address] Mar, [facility] [address] [id number] [address] [place] [address], [place] [address] 07 Mar, 2014 [facility] [address] [id number] [address] [place] [address], [place] [address] 07 Mar, 2014 [facility] [address] [id number] [address] [place] [address], [place] [address] 06 Mar, 2014 [facility] [address] [id number] [address] [place] [address], [place] [address] Feb, [facility] [address] [id number] [address] [place] [address], [place] [address] Feb, 2013 [facility] [address] [id number] [address] [place] [address], [place] [address] 23 Feb, 2013 [facility] [address] [id number] [address] [place] [address], [place] [address] 23 Feb, 2014 [facility] [address] [id number] [facility] [place] [address] 19 Feb, 2014 [facility] [address] [id number] [address] [place] [address], [place] [address] 19 Feb, 2014 [facility] [address] [id number] [address] [place] [address], [place] [address] 13 Feb, 2014 [facility] [address] [id number] [address] [place] [address], [place] [address] 13 Feb, 2014 [facility] [address] [id number] [address] [place] [address], [place] [address] 12 Feb, 2014 [facility] [address] [id number] [address] [place] [address], [place] [address] Feb, [facility] [address] [id number] [address] [place] [address], [place] [address] 15 Jan, 2014 [facility] [address] [id number] [address] [place] [address], [place] [address] Jan, [facility] [address] [id number] [address] [place] [address], [place] [address] Dec, [facility] [address] [id number] [address] [place] [address], [place] [address] Dec, [facility] [address] [id number] [address] [place] [address], [place] [address] Dec, [facility] [address] [id number] [address] [place] [address], [place] [address] Dec, [facility] [address] [id number] [address] [place] [address], [place] [address] Dec, [facility] [address] [id number] [address] [place] [address], [place] [address] Dec, [facility] [address] [id number] [address] [place] [address], [place] [address] Nov, [facility] [address] [id number] [address] [place] [address], [place] [address] Nov, [facility] [address] [id number] [facility] [place] [address] Nov, [facility] [address] [id number] [facility] [place] [address] Nov, [facility] [address] [id number] [address] [place] [address], [place] [address] October, [facility] [address] [id number] [address] [place] [address], [place] [address] October, [facility] [address] [id number] [address] [place] [address], [place] [address] October, [facility] [address] [id number] [address] [place] [address], [place] [address] October, [facility] [address] [id number] [address] [place] [address], [place] [address] October, [facility] [address] [id number] [address] [place] [address], [place] [address] October, [facility] [address] [id number] [address] [place] [address], [place] [address] October, [facility] [address] [id number] [address] [place] [address], [place] [address] October, [facility] [address] [id number] [address] [place] [address], [place] [address] October, [facility] [address] [id number] [address] [place] [address], [place] [address] October, [facility] [address] [id number] [address] [place] [address], [place] [address] October, [facility] [address] [id number] [address] [place] [address], [place] [address] October, [facility] [address] [id number] [address] [place] [address], [place] [address] October, [facility] [address] [id number] [address] [place] [address], [place] [address] October, [facility] [address] [id number] [address] [place] [address], [place] [address] October, [facility] [address] [id number] [address] [place] [address], [place] [address] October, [facility] [address] [id number] [address] [place] [address], [place] [address] Sep, [facility] [address] [id number] [address] [place] [address], [place] [address] Sep, [facility] [address] [id number] [address] [place] [address], [place] [address] Sep, [facility] [address] [id number] [address] [place] [address], [place] [address] Sep, [facility] [address] [id number] [address] [place] [address], [place] [address] Sep, [facility] [address] [id number] [address] [place] [address], [place] [address] Sep, [facility] [address] [id number] [address] [place] [address], [place] [address] Aug, [facility] [address] [id number] [address] [place] [address], [place] [address] Aug, [facility] [address] [id number] [address] [place] [address], [place] [address] Aug, [facility] [address] [id number] [address] [place] [address], [place] [address] Aug, [facility] [address] [id number] [address] [place] [address], [place] [address] Aug, [facility] [address] [id number] [address] [place] [address], [place] [address] Aug, [facility] [address] [id number] [address] [place] [address], [place] [address] Jul, [facility] [address] [id number] [address] [place] [address], [place] [address] Jul, [facility] [address] [id number] [address] [place] [address], [place] [address] Jul, [facility] [address] [id number] [address] [place] [address], [place] [address] Jul, [facility] [address] [id number] [address] [place] [address], [place] [address] Jun, [facility] [address] [id number] [address] [place] [address], [place] [address] Jun, [facility] [address] [id number] [address] [place] [address], [place] [address] May, [facility] [address] [id number] [address] [place] [address], [place] [address] May, [facility] [address] [id number] [address] [place] [address], [place] [address] May, [facility] [address] [id number] [address] [place] [address], [place] [address] May, [facility] [address] [id number] [address] [place] [address], [place] [address] May, [facility] [address] [id number] [address] [place] [address], [place] [address] Apr, [facility] [address] [id number] [address] [place] [address] Apr, [facility] [address] [id number] [address] [place] [address], [place] [address] Apr, [facility] [address] [id number] [address] [place] [address], [place] [address] Apr, [facility] [address] [id number] [address] [place] [address], [place] [address] Apr, [facility] [address] [id number] [address] [place] [address], [place] [address] 04 Apr, 2013 [facility] [address] [id number] [address] [place] [address], [place] [address] 15 Mar, 2013 [facility] [address] [id number] [address] [place] [address], [place] [address] 15 Mar, 2013 [facility] [address] [id number] [address] [place] [address], [place] [address] 14 Mar, 2013 [facility] [address] [id number] [address] [place] [address], [place] [address] 14 Mar, 2013 [facility] [address] [id number] [address] [place] [address], [place] [address] 11 Mar, 2013 [facility] [address] [id number] [address] [place] [address], [place] [address] Mar, [facility] [address] [id number] [address] [place] [address], [place] [address] 23 Feb, 2013 [facility] [address] [id number] [address] [place] [address], [place] [address] 19 Feb, 2013 [facility] [address] [id number] [address] [place] [address], [place] [address] 04 Feb, 2013 [facility] [address] [id number] [address] [place] [address], [place] [address] 30 Jan, 2013 [facility] [address] [id number] [address] [place] [address], [place] [address] Jan, [facility] [address] [id number] [address] [place] [address], [place] [address] Jan, [facility] [address] [id number] [address] [place] [address], [place] [address] 16 Jan, 2013 [facility] [address] [id number] [address] [place] [address], [place] [address] Jan, [facility] [address] [id number] [address] [place] [address], [place] [address] Jan, [facility] [address] [id number] [address] [place] [address], [place] [address] Dec, [facility] [address] [id number] [address] [place] [address], [place] [address] Dec, [facility] [address] [id number] [address] [place] [address], [place] [address] Dec, [facility] [address] [id number] [address] [place] [address], [place] [address] Dec, [facility] [address] [id number] [address] [place] [address], [place] [address] Dec, [facility] [address] [id number] [address] [place] [address], [place] [address] Dec, [facility] [address] [id number] [address] [place] [address], [place] [address] Nov, [facility] [address] [id number] [address] [place] [address], [place] [address] Nov, [facility] [address] [id number] [address] [place] [address], [place] [address] Nov, [facility] [address] [id number] [address] [place] [address], [place] [address] Nov, [facility] [address] [id number] [address] [place] [address], [place] [address] Nov, [facility] [address] [id number] [address] [place] [address], [place] [address] Nov, [facility] [address] [id number] [address] [place] [address], [place] [address] October, [facility] [address] [id number] [address] [place] [address], [place] [address] October, [facility] [address] [id number] [address] [place] [address], [place] [address] October, [facility] [address] [id number] [address] [place] [address], [place] [address] 15 Oct, 2012 [facility] [address] [id number] [address] [place] [address], [place] [address] October, [facility] [address] [id number] [address] [place] [address], [place] [address] 30 Sep, 2012 [facility] [address] [id number] [address] [place] [address], [place] [address] Sep, [facility] [address] [id number] [address] [place] [address], [place] [address] Sep, [facility] [address] [id number] [address] [place] [address], [place] [address] 18 Sep, 2012 [facility] [address] [id number] [address] [place] [address], [place] [address] Sep, [facility] [address] [id number] [address] [place] [address], [place] [address] Aug, [facility] [address] [id number] [address] [place] [address], [place] [address] 07 Aug, 2012 [facility] [address] [id number] [address] [place] [address], [place] [address] 04 Aug, 2012 [facility] [address] [id number] [address] [place] [address], [place] [address] Jul, [facility] [address] [id number] [address] [place] [address], [place] [address] 20 Jul, 2012 [facility] [address] [id number] [address] [place] [address], [place] [address] Jul, [facility] [address] [id number] [address] [place] [address], [place] [address] 08 Jul, 2012 [facility] [address] [id number] [address] [place] [address], [place] [address] 06 Jul, 2012 [facility] [address] [id number] [address] [place] [address], [place] [address] Jul, [facility] [address] [id number] [address] [place] [address], [place] [address] Jun, [facility] [address] [id number] [address] [place] [address], [place] [address] Apr, [facility] [address] [id number] [address] [place] [address], [place] [address] Apr, [facility] [address] [id number] [address] [place] [address], [place] [address] Apr, [facility] [address] [id number] [address] [place] [address], [place] [address] Apr, [facility] [address] [id number] [address] [place] [address], [place] [address] Mar, [facility] [address] [id number] [address] [place] [address], [place] [address] Mar, [facility] [address] [id number] [address] [place] [address], [place] [address] Mar, [facility] [address] [id number] [address] [place] [address], [place] [address] Mar, [facility] [address] [id number] [address] [place] [address], [place] [address] Mar, [facility] [address] [id number] [address] [place] [address] Feb, [facility] [address] [id number] [address] [place] [address] Jan, [facility] [address] [id number] [address] [place] [address], [place] [address] Jan, [facility] [address] [id number] [address] [place] [address] Jan, [facility] [address] [id number] [address] [place] [address], [place] [address] Dec, [facility] [address] [id number] [address] [place] [address] Nov, [facility] [address] [id number] [address] [place] [address] Nov, [facility] [address] [id number] [address] [place] [address] Nov, [facility] [address] [id number] [address] [place] [address] Nov, [facility] [address] [id number] [address] [place] [address] Nov, [facility] [address] [id number] [address] [place] [address] October, [facility] [address] [id number] [address] [place] [address] October, [facility] [address] [id number] [address] [place] [address] October, [facility] [address] [id number] [address] [place] [address] October, [facility] [address] [id number] [address] [place] [address] October, IMMUNIZATIONS No Known Immunizations SOCIAL HISTORY Never Assessed REASON FOR VISIT Controlled Med Refill PLAN OF CARE VITAL SIGNS MEDICATIONS Medication Instructions Dosage Frequency Start Date End Date Duration S tatus Hydrocodone-Acetaminophen 10-325 MG Orally 3 times a day 1 tablet a s needed 8h Aug, 28 days Active Zolpidem Tartrate 10 mg [...]
--- OUTSIDE RECORDS SUMMARY | 2020-01-25 08:08 | XMS REPORT ---
Author Author Velma CORDERO Organization [facility] [place] Address [address] [place] [address] Care Team Providers Care Aquatic Biologist Name Role Phone STEPHAN CORDERO Unavailable PROBLEMS Type Condition ICD9-CM Code YVA22-PQ Code Onset Dates Condition S tatus SNOMED Code Problem Hypercholesteremia E78.0 Active 1 9651170 Problem Arthritis M19.90 Active 6464106 Problem Hyperparathyroidism E21.3 Active 74834364 Problem Primary insomnia F51.01 Active 397 2004 Problem Myalgia M79.1 Active 29949068 Problem Chronic kidney disease, stage 4 (severe) N18.4 Active 839257450 Problem BPV (benign positional vertigo), bilateral H81.13 Active 485844116 Problem Corns L84 Active 863964846 Problem Mood disorder F39 Active 651989 05 Problem 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 Active 79756259 Problem 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 Active 71796727 ALLERGIES No Information ENCOUNTERS Encounter Location Date Diagnosis [place] [address] [place] [id number] [place] [phone] Nov, Labyrinthitis of left ear H8 3.02 [place] [address] [place] [id number] [address] [place] [address] Nov, BMI 40.0-44.9, adult Z68.41 ; Chronic kidney disease, stage 4 (severe) N18.4 and Acute right-sided thoracic back pain M54.6 [place] [address] [place] [id number] [address] [place] [address] October, Labyrinthitis of left ear H8 3.02 and Arthritis M19.90 [place] [address] [place] [id number] [place] [phone] Sep, BPV (benign positional verti go), bilateral H81.13 ; Dysfunction of left eustachian tube H69.82 and BMI 40.0-44.9, adult Z68.41 [facility] [place] [address] [place] [id number] [place] [phone] Sep, Labyrinthitis of left ear H8 3.02 and Arthritis M19.90 [facility] [place] [address] [facility] [id number] [address] [place] [phone] Sep, [facility] [place] [address] [facility] [id number] [address] [place] [phone] Sep, [facility] [place] [address] [facility] [id number] [address] [place] [phone] Sep, Chronic kidney disease, stag e 4 (severe) N18.4 [facility] [place] [address] [place] [id number] [place] [phone] Sep, Chronic kidney disease, stag e 4 (severe) N18.4 [facility] [place] [address] [id number] [address] [place] [phone] Aug, Labyrinthitis of left ear H8 3.02 and Arthritis M19.90 [facility] [place] [address] [facility] [id number] [address] [place] [phone] Aug, [facility] [place] [address] [facility] [id number] [address] [place] [phone] Jul, [facility] [place] [address] [facility] [id number] [address] [place] [phone] Jul, Arthritis M19.90 and Labyrin thitis of left ear H83.02 [facility] [place] [address] [facility] [id number] [address] [place] [phone] Jul, [facility] [place] [address] [facility] [id number] [address] [place] [phone] Jun, [facility] [place] [address] [facility] [id number] [address] [place] [address] Jun, Arthritis M19.90 and Labyrin thitis of left ear H83.02 [place] [address] [address] Jun, Pre-op evaluation Z01.818 ; BMI 40.0-44.9, adult Z68.41 and Encounter for immunization Z23 [place] [id number] [place] [address] May, Arthritis M19.90 and Labyrin thitis of left ear H83.02 [place] [address] [address] Apr, Labyrinthitis of left ear H8 3.02 [place] [address] [place] [id number] [place] [address] Apr, Arthritis M19.90 and Labyrin thitis of left ear H83.02 [place] [address] [address] Mar, Arthritis M19.90 and Labyrin thitis of left ear H83.02 [place] [address] [address] Mar, Chronic kidney disease, stag e 4 (severe) N18.4 [place] [address] [place] [id number] [place] [phone] Feb, Arthritis M19.90 and Labyrin thitis of left ear H83.02 [place] [address] [place] [id number] [place] [phone] Jan, Labyrinthitis of left ear H8 3.02 and Deficiency of other specified B group vitamins E53.8 [place] [address] [place] [id number] [place] [phone] Dec, Arthritis M19.90 [place] [address] [place] [id number] [place] [phone] Dec, BPV (benign positional verti go), bilateral H81.13 [facility] [place] [address] [facility] [id number] [address] [place] [phone] Dec, [facility] [place] [address] [facility] [id number] [address] [place] [phone] Dec, [facility] [place] [address] [facility] [id number] [address] [place] [address] Dec, [facility] [place] [address] [facility] [id number] [address] [place] [phone] Nov, Arthritis M19.90 and Deficie ncy of other specified B group vitamins E53.8 [facility] [place] [address] [facility] [id number] [address] [place] [phone] Nov, Arthritis M19.90 [facility] [place] [address] [facility] [id number] [address] [place] [phone] Nov, Hyperparathyroidism E21.3 [facility] [place] [address] [facility] [id number] [address] [place] [phone] October, [facility] [place] [address] [facility] [id number] [address] [place] [address] October, Hyperparathyroidism E21.3 [facility] [place] [address] [facility] [id number] [address] [place] [phone] October, [facility] [place] [address] [facility] [id number] [address] [place] [phone] October, Renal insufficiency N28.9 an d Hyperparathyroidism E21.3 [facility] [place] [address] [facility] [id number] [address] [place] [phone] October, [facility] [place] [address] [facility] [id number] [address] [place] [address] October, Renal insufficiency N28.9 an d Hyperparathyroidism E21.3 [facility] [place] [address] [facility] [id number] [address] [place] [phone] October, Arthritis M19.90 [facility] [place] [address] [place] [id number] [place] [address] Sep, [facility] [place] [address] [address] Sep, Lumbar neuritis M54.16 ; Tho racic abscess J86.9 and Deficiency of other specified B group vitamins E53.8 [facility] [place] [address] [address] Sep, [facility] [place] [address] [address] Aug, Arthritis M19.90 [facility] [place] [address] [address] Aug, Hyperparathyroidism E21.3 [facility] [place] [address] [address] Aug, Hyperparathyroidism E21.3 [facility] [place] [address] [address] Aug, Arthritis M19.90 [facility] [place] [address] [address] Jul, Mass of throat R22.1 [facility] [place] [address] [address] Jul, [facility] [place] [address] [address] Jul, Arthritis M19.90 [facility] [place] [address] [place] [id number] [place] [phone] Jun, Arthritis M19.90 [facility] [place] [address] [address] Jun, [facility] [place] [address] [place] [id number] [address] [place] [phone] Jun, Renal insufficiency N28.9 an d 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 [facility] [place] [address] [place] [id number] [place] [phone] 05 Jun, 2016 Medicare welcome exam Z00.00 ; Encounter for immunization Z23 ; Arthritis M19.90 ; Medicare annual wellness visit, initial Z00.00 ; Medicare annual wellness visit, subsequent Z00.00 and Deficiency of other specified B group vitamins E53.8 [facility] [place] [address] [facility] [id number] [address] [place] [address] 29 May, 2016 Renal insufficiency N28.9 an d 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 [facility] [place] [address] [facility] [id number] [address] [place] [phone] 19 May, 2016 Renal insufficiency N28.9 [facility] [place] [address] [address] 16 May, 2016 Renal insufficiency N28.9 [facility] [place] [address] [place] [id number] [place] [phone] May, [facility] [place] [address] [place] [id number] [place] [phone] Apr, [facility] [place] [address] [place] [id number] [place] [phone] Apr, [facility] [place] [address] [place] [id number] [address] [place] [phone] 14 Apr, 2016 Mass of throat R22.1 [facility] [place] [address] [place] [id number] [place] [phone] 10 Apr, 2016 [facility] [place] [address] [place] [id number] [place] [phone] 10 Apr, 2016 Mass of throat R22.1 [facility] [place] [address] [place] [id number] [place] [phone] 04 Apr, 2016 Mass of throat R22.1 [facility] [place] [address] [facility] [id number] [address] [place] [phone] 31 Mar, 2016 [facility] [place] [address] [place] [id number] [place] [phone] Mar, [facility] [place] [address] [id number] [address] [place] [phone] Mar, [facility] [place] [address] [facility] [id number] [address] [place] [phone] Mar, Parathyroid abnormality E21. 5 and Encounter for immunization Z23 [facility] [place] [address] [id number] [address] [place] [phone] Mar, [facility] [place] [address] [id number] [address] [place] [phone] Mar, [facility] [place] [address] [id number] [address] [place] [phone] Feb, Renal insufficiency N28.9 an d Hyperparathyroidism E21.3 [facility] [place] [address] [facility] [id number] [address] [place] [id number] 19 Feb, 2016 [facility] [place] [address] [facility] [id number] [address] [place] [phone] 15 Feb, 2016 Renal insufficiency N28.9 an d Hyperparathyroidism E21.3 [facility] [place] [address] [facility] [id number] [address] [place] [phone] 14 Feb, 2016 [facility] [place] [address] [facility] [id number] [address] [place] [phone] Feb, [facility] [place] [address] [facility] [id number] [address] [place] [phone] Feb, [facility] [place] [address] [id number] [address] [place] [phone] Jan, [facility] [place] [address] [facility] [id number] [address] [place] [address] Jan, Arthritis M19.90 ; Lumbago w ith sciatica, right side M54.41 and Other chronic pain G89.29 [facility] [place] [address] [facility] [id number] [address] [place] [phone] Jan, [facility] [place] [address] [place] [id number] [place] [address] Dec, Arthritis M19.90 ; Lumbago w ith sciatica, right side M54.41 and Other chronic pain G89.29 [place] [address] [place] [id number] [place] [phone] 16 Nov, 2015 Deficiency of other specifie d B group vitamins E53.8 ; Primary insomnia F51.01 ; Mood disorder F39 and Lumbago with sciatica, right side M54.41 [place] [address] [place] [id number] [place] [phone] 13 Nov, 2015 Hyperparathyroidism E21.3 [place] [address] [place] [id number] [place] [address] Nov, Unspecified kidney failure N 19 and Hyperparathyroidism E21.3 [place] [address] [place] [id number] [place] [address] October, Hyperparathyroidism E21.3 [place] [address] [place] [id number] [place] [phone] October, [place] [address] [address] October, Hyperparathyroidism E21.3 [place] [address] [place] [id number] [place] [address] October, Hyperparathyroidism E21.3 [place] [address] [place] [id number] [place] [address] Sep, Hyperparathyroidism E21.3 ; Hypercholesterolemia E78.0 and Arthritis M19.90 [place] [address] [place] [id number] [place] [address] Aug, [place] [address] [place] [id number] [place] [phone] Aug, Deficiency of other specifie d B group vitamins E53.8 [place] [address] [place] [id number] [place] [phone] Aug, [facility] [place] [address] [facility] [id number] [address] [place] [phone] Jul, Urinary frequency R35.0 [facility] [place] [address] [facility] [id number] [address] [place] [phone] Jul, Urinary frequency R35.0 [facility] [place] [address] [facility] [id number] [address] [place] [phone] Jul, [facility] [place] [address] [facility] [id number] [address] [place] [phone] Jul, [facility] [place] [address] [facility] [id number] [address] [place] [phone] Jun, Pain in left knee M25.562 [facility] [place] [address] [facility] [id number] [address] [place] [phone] Jun, [facility] [place] [address] [facility] [id number] [address] [place] [phone] May, Swelling of left knee joint M25.462 [facility] [place] [address] [facility] [id number] [address] [place] [phone] May, [facility] [place] [address] [facility] [id number] [address] [place] [phone] May, [facility] [place] [address] [facility] [id number] [address] [place] [phone] May, [facility] [place] [address] [facility] [id number] [address] [place] [id number] Apr, Renal insufficiency N28.9 an d Chronic kidney disease, stage 4 (severe) N18.4 [facility] [place] [address] [facility] [id number] [address] [place] [phone] Apr, Unspecified kidney failure N 19 [facility] [place] [address] [facility] [id number] [address] [place] [phone] Apr, Unspecified kidney failure N 19 [facility] [place] [address] [id number] [address] [place] [phone] Apr, [facility] [place] [address] [facility] [id number] [address] [place] [phone] Apr, Hyperparathyroidism, unspeci fied 252.00 [facility] [place] [address] [facility] [id number] [address] [place] [phone] Apr, [facility] [place] [address] [facility] [id number] [address] [place] [phone] Mar, [facility] [place] [address] [id number] [address] [place] [phone] Mar, [facility] [place] [address] [facility] [id number] [address] [place] [phone] Mar, Hyperparathyroidism, unspeci fied 252.00 [facility] [place] [address] [facility] [id number] [address] [place] [phone] Feb, [facility] [place] [address] [facility] [id number] [address] [place] [phone] Feb, Otalgia 388.70 [facility] [place], [facility] [address] [facility] [id number] [place] [phone] Feb, [facility] [place], [facility] [address] [facility] [id number] [place] [phone] Feb, [facility] [place], [facility] [address] [facility] [id number] [address] [place] [phone] Jan, [facility] [place], [facility] [address] [facility] [id number] [address] [place] [id number] Jan, Hyperparathyroidism, unspeci fied 252.00 [facility] [place], [facility] [address] [facility] [id number] [address] [place] [phone] Jan, [facility] [place], [facility] [address] [facility] [id number] [address] [place] [phone] Jan, Other B-complex deficiencies 266.2 and Hyperparathyroidism, unspecified 252.00 [facility] [place], [facility] [address] [id number] [address] [place] [phone] Jan, [facility] [address] [id number] [address] [place] [phone] Jan, [facility] [address] [id number] [address] [place] [phone] Jan, [facility] [address] [id number] [address] [place] [phone] Dec, [facility] [address] [id number] [address] [place] [phone] Dec, [facility] [address] [id number] [address] [place] [phone] Dec, [facility] [address] [id number] [address] [place] [phone] Nov, Routine check-up V70.0 and P re-op exam V72.84 [facility] [address] [id number] [address] [place] [phone] Nov, [facility] [address] [id number] [address] [place] [phone] Nov, [facility] [address] [id number] [address] [place] [phone] October, [facility] [address] [id number] [address] [place] [phone] October, Other B-complex deficiencies 266.[address] [facility] [address] [id number] [address] [place] [id number] October, [facility] [address] [id number] [address] [place] [id number] Sep, [facility] [address] [id number] [address] [place] [id number] Sep, [facility] [address] [id number] [address] [place] [id number] Aug, [facility] [address] [id number] [address] [place] [address], [place] [address] 20 Aug, 2014 [facility] [address] [id number] [address] [place] [address], [place] [address] 17 Aug, 2014 [facility] [address] [id number] [address] [place] [address], [place] [address] 17 Aug, 2014 [facility] [address] [id number] [address] [place] [address], [place] [address] Aug, 2014 [facility] [address] [id number] [address] [place] [address], [place] [address] Aug, [facility] [address] [id number] [address] [place] [address], [place] [address] 18 Jul, 2014 [facility] [address] [id number] [address] [place] [address], [place] [address] 18 Jul, 2014 [facility] [address] [id number] [address] [place] [address], [place] [address] 17 Jul, 2014 [facility] [address] [id number] [address] [place] [address], [place] [address] 17 Jul, 2014 [facility] [address] [id number] [address] [place] [address], [place] [address] Jul, 2014 [facility] [address] [id number] [address] [place] [address], [place] [address] Jul, 2014 [facility] [address] [id number] [address] [place] [address], [place] [address] Jul, 2014 [facility] [address] [id number] [address] [place] [address], [place] [address] 10 Jul, 2014 [facility] [address] [id number] [address] [place] [address], [place] [address] 09 Jul, 2014 [facility] [address] [id number] [address] [place] [id number] 09 Jul, 2014 [facility] [address] [id number] [address] [place] [id number] Jul, [facility] [address] [id number] [address] [place] [address], [place] [address] Jul, [facility] [address] [id number] [address] [place] [address], [place] [address] Jul, [facility] [address] [id number] [address] [place] [address], [place] [address] Jul, [facility] [address] [id number] [address] [place] [address], [place] [address] Jun, [facility] [address] [id number] [address] [place] [address], [place] [address] Jun, [facility] [address] [id number] [address] [place] [address], [place] [address] Jun, [facility] [address] [id number] [address] [place] [address], [place] [address] Jun, [facility] [address] [id number] [address] [place] [address], [place] [address] Jun, [facility] [address] [id number] [address] [place] [address], [place] [address] Jun, [facility] [address] [id number] [address] [place] [address], [place] [address] Jun, [facility] [address] [id number] [address] [place] [address], [place] [address] Jun, [facility] [address] [id number] [address] [place] [id number] Jun, [facility] [address] [id number] [address] [place] [id number] Jun, [facility] [address] [id number] [address] [place] [id number] Jun, [facility] [address] [id number] [address] [place] [id number] Jun, [facility] [address] [id number] [address] [place] [address], [place] [address] Jun, [facility] [address] [id number] [address] [place] [address], [place] [address] Jun, [facility] [address] [id number] [address] [place] [address], [place] [address] May, [facility] [address] [id number] [address] [place] [address], [place] [address] May, [facility] [address] [id number] [address] [place] [address], [place] [address] May, [facility] [address] [id number] [address] [place] [address], [place] [address] May, [facility] [address] [id number] [address] [place] [address], [place] [address] Apr, [facility] [address] [id number] [address] [place] [address], [place] [address] Apr, [facility] [address] [id number] [address] [place] [address], [place] [address] Apr, [facility] [address] [id number] [address] [place] [address], [place] [address] Apr, [facility] [address] [id number] [address] [place] [address], [place] [address] Apr, [facility] [address] [id number] [address] [place] [address], [place] [address] Apr, [facility] [address] [id number] [address] [place] [address], [place] [address] Mar, [facility] [address] [id number] [address] [place] [address], [place] [address] Mar, [facility] [address] [id number] [address] [place] [address], [place] [address] Mar, [facility] [address] [id number] [address] [place] [address], [place] [address] Mar, [facility] [address] [id number] [address] [place] [address], [place] [address] 15 Mar, 2014 [facility] [address] [id number] [address] [place] [address], [place] [address] 15 Mar, 2014 [facility] [address] [id number] [address] [place] [address], [place] [address] 13 Mar, 2014 [facility] [address] [id number] [address] [place] [address], [place] [address] 13 Mar, 2014 [facility] [address] [id number] [address] [place] [address], [place] [address] 07 Mar, 2014 [facility] [address] [id number] [address] [place] [address], [place] [address] Mar, [facility] [address] [id number] [address] [place] [address], [place] [address] Mar, [facility] [address] [id number] [address] [place] [address] 07 Mar, 2014 [facility] [address] [id number] [address] [place] [address], [place] [address] 06 Mar, 2014 [facility] [address] [id number] [address] [place] [id number] 26 Feb, 2013 [facility] [address] [id number] [address] [place] [id number] 26 Sep, 2013 [facility] [address] [id number] [address] [place] [id number] 23 Feb, 2013 [facility] [address] [id number] [address] [place] [address], [place] [address] 23 Feb, 2013 [facility] [address] [id number] [address] [place] [address] 19 Feb, 2013 [facility] [address] [id number] [address] [place] [address] 19 Feb, 2013 [facility] [address] [id number] [facility] [place] [address] 13 Feb, 2014 [facility] [address] [id number] [address] [place] [address], [place] [address] 13 Feb, 2014 [facility] [address] [id number] [address] [place] [address], [place] [address] 12 Feb, 2014 [facility] [address] [id number] [address] [place] [address], [place] [address] Feb, [facility] [address] [id number] [address] [place] [address], [place] [address] Jan, [facility] [address] [id number] [address] [place] [address], [place] [address] Jan, [facility] [address] [id number] [address] [place] [address], [place] [address] Dec, [facility] [address] [id number] [address] [place] [address], [place] [address] Dec, [facility] [address] [id number] [address] [place] [address], [place] [address] Dec, [facility] [address] [id number] [address] [place] [address], [place] [address] Dec, [facility] [address] [id number] [address] [place] [address], [place] [address] Dec, [facility] [address] [id number] [address] [place] [address], [place] [address] Dec, [facility] [address] [id number] [address] [place] [address], [place] [address] Nov, [facility] [address] [id number] [address] [place] [address], [place] [address] Nov, [facility] [address] [id number] [address] [place] [address], [place] [address] Nov, [facility] [address] [id number] [address] [place] [address], [place] [address] Nov, [facility] [address] [id number] [address] [place] [address], [place] [address] October, [facility] [address] [id number] [address] [place] [address], [place] [address] October, [facility] [address] [id number] [address] [place] [address], [place] [address] October, [facility] [address] [id number] [address] [place] [address], [place] [address] October, [facility] [address] [id number] [address] [place] [address], [place] [address] October, [facility] [address] [id number] [address] [place] [address], [place] [address] October, [facility] [address] [id number] [address] [place] [address], [place] [address] October, [facility] [address] [id number] [address] [place] [address], [place] [address] October, [facility] [address] [id number] [address] [place] [address], [place] [address] October, [facility] [address] [id number] [address] [place] [address], [place] [address] October, [facility] [address] [id number] [address] [place] [address], [place] [address] October, [facility] [address] [id number] [address] [place] [address], [place] [address] October, [facility] [address] [id number] [address] [place] [address], [place] [address] October, [facility] [address] [id number] [address] [place] [address], [place] [address] October, [facility] [address] [id number] [address] [place] [address], [place] [address] October, [facility] [address] [id number] [address] [place] [address], [place] [address] October, [facility] [address] [id number] [facility] [place] [address] Sep, [facility] [address] [id number] [address] [place] [address], [place] [address] Sep, [facility] [address] [id number] [address] [place] [address], [place] [address] Sep, [facility] [address] [id number] [address] [place] [address], [place] [address] Sep, [facility] [address] [id number] [address] [place] [address], [place] [address] Sep, [facility] [address] [id number] [address] [place] [address], [place] [address] Sep, [facility] [address] [id number] [address] [place] [address], [place] [address] Aug, [facility] [address] [id number] [address] [place] [address], [place] [address] Aug, [facility] [address] [id number] [address] [place] [address], [place] [address] Aug, [facility] [address] [id number] [address] [place] [address], [place] [address] Aug, [facility] [address] [id number] [address] [place] [address], [place] [address] Aug, [facility] [address] [id number] [address] [place] [address], [place] [address] Aug, [facility] [address] [id number] [address] [place] [address], [place] [address] Jul, [facility] [address] [id number] [address] [place] [address], [place] [address] Jul, [facility] [address] [id number] [address] [place] [address], [place] [address] Jul, [facility] [address] [id number] [address] [place] [address], [place] [address] 03 Jul, 2013 [facility] [address] [id number] [address] [place] [address], [place] [address] Jun, [facility] [address] [id number] [address] [place] [address], [place] [address] Jun, [facility] [address] [id number] [address] [place] [address], [place] [address] May, [facility] [address] [id number] [address] [place] [address], [place] [address] May, [facility] [address] [id number] [address] [place] [address], [place] [address] May, [facility] [address] [id number] [address] [place] [address], [place] [address] May, [facility] [address] [id number] [address] [place] [address], [place] [address] May, [facility] [address] [id number] [address] [place] [address], [place] [address] Apr, [facility] [address] [id number] [address] [place] [address], [place] [address] Apr, [facility] [address] [id number] [address] [place] [address], [place] [address] Apr, [facility] [address] [id number] [address] [place] [address], [place] [address] Apr, [facility] [address] [id number] [address] [place] [address], [place] [address] Apr, [facility] [address] [id number] [address] [place] [address], [place] [address] 04 Apr, 2013 [facility] [address] [id number] [address] [place] [address], [place] [address] 15 Mar, 2013 [facility] [address] [id number] [address] [place] [address], [place] [address] 15 Mar, 2013 [facility] [address] [id number] [address] [place] [address], [place] [address] 14 Mar, 2013 [facility] [address] [id number] [address] [place] [address], [place] [address] 14 Mar, 2013 [facility] [address] [id number] [address] [place] [address], [place] [address] 11 Mar, 2013 [facility] [address] [id number] [address] [place] [address], [place] [address] 11 Mar, 2013 [facility] [address] [id number] [address] [place] [address], [place] [address] 23 Feb, 2013 [facility] [address] [id number] [address] [place] [address], [place] [address] Feb, [facility] [address] [id number] [address] [place] [address], [place] [address] Feb, [facility] [address] [id number] [address] [place] [address], [place] [address] Jan, [facility] [address] [id number] [address] [place] [address], [place] [address] Jan, [facility] [address] [id number] [address] [place] [address], [place] [address] Jan, [facility] [address] [id number] [address] [place] [address], [place] [address] Jan, [facility] [address] [id number] [address] [place] [address], [place] [address] Jan, [facility] [address] [id number] [address] [place] [address], [place] [address] Jan, [facility] [address] [id number] [address] [place] [address], [place] [address] Dec, [facility] [address] [id number] [address] [place] [address], [place] [address] Dec, [facility] [address] [id number] [address] [place] [address], [place] [address] Dec, [facility] [address] [id number] [address] [place] [address], [place] [address] Dec, [facility] [address] [id number] [address] [place] [address], [place] [address] Dec, [facility] [address] [id number] [address] [place] [address], [place] [address] Dec, [facility] [address] [id number] [address] [place] [address], [place] [address] Nov, [facility] [address] [id number] [address] [place] [address], [place] [address] Nov, [facility] [address] [id number] [address] [place] [address], [place] [address] Nov, [facility] [address] [id number] [address] [place] [address], [place] [address] Nov, [facility] [address] [id number] [address] [place] [address], [place] [id number] Nov, [facility] [address] [id number] [address] [place] [address], [place] [id number] Nov, [facility] [address] [id number] [address] [place] [address], [place] [address] October, [facility] [address] [id number] [address] [place] [address], [place] [address] October, [facility] [address] [id number] [address] [place] [address], [place] [address] October, [facility] [address] [id number] [address] [place] [address], [place] [address] October, [facility] [address] [id number] [address] [place] [address], [place] [address] October, [facility] [address] [id number] [address] [place] [address], [place] [id number] Sep, [facility] [address] [id number] [address] [place] [address], [place] [address] 23 Sep, 2012 [facility] [address] [id number] [address] [place] [address], [place] [address] Sep, [facility] [address] [id number] [address] [place] [address], [place] [id number] 18 Sep, 2012 [facility] [address] [id number] [address] [place] [address], [place] [address] Sep, [facility] [address] [id number] [address] [place] [address], [place] [id number] 26 Aug, 2012 [facility] [address] [id number] [address] [place] [address], [place] [address] 07 Aug, 2012 [facility] [address] [id number] [address] [place] [address], [place] [address] Aug, [facility] [address] [id number] [address] [place] [address], [place] [address] Jul, [facility] [address] [id number] [address] [place] [address], [place] [address] Jul, [facility] [address] [id number] [address] [place] [address], [place] [address] Jul, [facility] [address] [id number] [address] [place] [address], [place] [address] 08 Jul, 2012 [facility] [address] [id number] [address] [place] [address], [place] [address] 06 Jul, 2012 [facility] [address] [id number] [address] [place] [address], [place] [id number] 05 Jul, 2012 [facility] [address] [id number] [address] [place] [address], [place] [id number] 15 Jun, 2012 [facility] [address] [id number] [address] [place] [address], [place] [address] 16 Apr, 2012 [facility] [address] [id number] [address] [place] [address], [place] [id number] 16 Apr, 2012 [facility] [address] [id number] [address] [place] [address], [place] [address] Apr, [facility] [address] [id number] [address] [place] [address], [place] [address] Apr, [facility] [address] [id number] [address] [place] [address], [place] [address] Mar, [facility] [address] [id number] [address] [place] [address], [place] [address] Mar, [facility] [address] [id number] [address] [place] [address], [place] [id number] Mar, [facility] [address] [id number] [address] [place] [address], [place] [address] Mar, [facility] [address] [id number] [address] [place] [address], [place] [address] Mar, [facility] [address] [id number] [address] [place] [address], [place] [id number] Feb, [facility] [address] [id number] [address] [place] [address], [place] [address] Jan, [facility] [address] [id number] [address] [place] [address], [place] [address] Jan, [facility] [address] [id number] [address] [place] [address], [place] [address] Jan, [facility] [address] [id number] [address] [place] [address], [place] [address] Dec, [facility] [address] [id number] [address] [place] [address], [place] [address] Nov, [facility] [address] [id number] [address] [place] [address], [place] [address] Nov, [facility] [address] [id number] [address] [place] [id number] Nov, [facility] [place] [address] [id number] [address] [place] [id number] 07 Nov, 2011 [facility] [place] [address] [id number] [address] [place] [phone] Nov, [facility] [place] [address] [id number] [address] [place] [phone] October, [facility] [place] [address] [id number] [address] [place] [phone] October, [facility] [place] [address] [id number] [address] [place] [id number] October, [facility] [place] [address] [id number] [address] [place] [phone] October, [facility] [place] [address] [facility] [id number] [address] [place] [phone] October, IMMUNIZATIONS No Known Immunizations SOCIAL HISTORY Never Assessed REASON FOR VISIT Controlled Med Refill PLAN OF CARE VITAL SIGNS MEDICATIONS Medication Instructions Dosage Frequency Start Date End Date Duration S tatus Zolpidem Tartrate 10 mg Orally Once a day 1 tablet at bedtime 24h 28 days Active Hydrocodone-Acetaminophen 10-325 MG Orally 3 times a day 1 tablet a s needed 8h Jun, 28 days Active RESULTS No Results PROCEDURES [...]
--- OUTSIDE RECORDS SUMMARY | 2020-01-25 08:08 | XMS REPORT ---
Author Author Velma CEE Organization [facility] Address [address] [place] [address] Care Team Providers Care Fractionating Still Operator Name Role Phone TERRI CEE Unavailable PROBLEMS Type Condition ICD9-CM Code GIF16-CV Code Onset Dates Condition S tatus SNOMED Code Problem Hypercholesteremia E78.0 Active 1 1200832 Problem Arthritis M19.90 Active 8906975 Problem Hyperparathyroidism E21.3 Active 61069742 Problem Primary insomnia F51.01 Active 397 2004 Problem Myalgia M79.1 Active 43252251 Problem Chronic kidney disease, stage 4 (severe) N18.4 Active 298108836 Problem BPV (benign positional vertigo), bilateral H81.13 Active 409221587 Problem Corns L84 Active 225627898 Problem Mood disorder F39 Active 526145 05 Problem 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 Active 64475055 Problem 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 Active 10058001 ALLERGIES Substance Reaction Event Type Date Status Ibuprofen no anti inflammatories Drug Allergy Jun, Activ e Cymbalta nausea and vomiting Drug Allergy Jun, Active Clonidine HCl blurry vision/weakness Drug Allergy Jun, Acti ve ENCOUNTERS Encounter Location Date Diagnosis [facility] [address] [facility] [id number] [address] [place] [phone] Nov, Labyrinthitis of left ear H8 3.02 [facility] [address] [facility] [id number] [address] [place] [phone] Nov, BMI 40.0-44.9, adult Z68.41 ; Chronic kidney disease, stage 4 (severe) N18.4 and Acute right-sided thoracic back pain M54.6 [facility] [address] [facility] [id number] [address] [place] [phone] October, Labyrinthitis of left ear H8 3.02 and Arthritis M19.90 [facility] [address] [facility] [id number] [address] [place] [phone] Sep, BPV (benign positional verti go), bilateral H81.13 ; Dysfunction of left eustachian tube H69.82 and BMI 40.0-44.9, adult Z68.41 [facility] [address] [facility] [id number] [address] [place] [phone] Sep, Labyrinthitis of left ear H8 3.02 and Arthritis M19.90 [facility] [address] [facility] [id number] [address] [place] [phone] Sep, [facility] [address] [facility] [id number] [address] [place] [phone] Sep, [facility] [address] [facility] [id number] [address] [place] [phone] Sep, Chronic kidney disease, stag e 4 (severe) N18.4 [facility] [address] [facility] [id number] [address] [place] [phone] Sep, Chronic kidney disease, stag e 4 (severe) N18.4 [facility] [address] [facility] [id number] [address] [place] [phone] Aug, Labyrinthitis of left ear H8 3.02 and Arthritis M19.90 [facility] [address] [facility] [id number] [address] [place] [phone] Aug, [facility] [address] [id number] [address] [place] [phone] Jul, [facility] [address] [facility] [id number] [address] [place] [phone] Jul, Arthritis M19.90 and Labyrin thitis of left ear H83.02 [facility] [address] [facility] [id number] [address] [place] [phone] Jul, [facility] [address] [place] [id number] [address] [place] [phone] Jun, [facility] [place] [address] [place] [id number] [place] [phone] Jun, Arthritis M19.90 and Labyrin thitis of left ear H83.02 [facility] [place] [address] [place] [id number] [place] [phone] Jun, Pre-op evaluation Z01.818 ; BMI 40.0-44.9, adult Z68.41 and Encounter for immunization Z23 [facility] [place] [address] [place] [id number] [place] [phone] May, Arthritis M19.90 and Labyrin thitis of left ear H83.02 [place] [place] [address] [address] Apr, Labyrinthitis of left ear H8 3.02 [place] [address] [address] Apr, Arthritis M19.90 and Labyrin thitis of left ear H83.02 [place] [address] [phone] Mar, Arthritis M19.90 and Labyrin thitis of left ear H83.02 [facility] [address] [place] [id number] [place] [phone] Mar, Chronic kidney disease, stag e 4 (severe) N18.4 [facility] [place] [address] [place] [id number] [address] [place] [phone] Feb, Arthritis M19.90 and Labyrin thitis of left ear H83.02 [place] [address] [place] [id number] [address] [place] [phone] Jan, Labyrinthitis of left ear H8 3.02 and 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 [place] [address] [place] [id number] [address] [place] [phone] Dec, Arthritis M19.90 [facility] [address] [facility] [id number] [address] [place] [phone] Dec, BPV (benign positional verti go), bilateral H81.13 [facility] [address] [facility] [id number] [address] [place] [phone] Dec, [facility] [address] [facility] [id number] [address] [place] [phone] Dec, [facility] [address] [facility] [id number] [address] [place] [phone] Dec, [facility] [address] [facility] [id number] [address] [place] [phone] Nov, Arthritis M19.90 and Deficie ncy of other specified B group vitamins E53.8 [facility] [address] [facility] [id number] [address] [place] [phone] Nov, Arthritis M19.90 [facility] [address] [facility] [id number] [address] [place] [phone] Nov, Hyperparathyroidism E21.3 [facility] [address] [facility] [id number] [address] [place] [phone] October, [facility] [address] [facility] [id number] [address] [place] [phone] October, Hyperparathyroidism E21.3 [facility] [address] [facility] [id number] [address] [place] [phone] October, [facility] [address] [facility] [id number] [address] [place] [phone] October, Renal insufficiency N28.9 an d Hyperparathyroidism E21.3 [facility] [address] [facility] [id number] [address] [place] [phone] October, [facility] [address] [facility] [id number] [address] [place] [phone] October, Renal insufficiency N28.9 an d Hyperparathyroidism E21.3 [facility] [address] [facility] [id number] [address] [place] [phone] October, Arthritis M19.90 [facility] [address] [facility] [id number] [address] [place] [phone] Sep, [facility] [address] [place] [id number] [address] [place] [phone] Sep, Lumbar neuritis M54.16 ; Tho racic abscess J86.9 and 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 [facility] [address] [facility] [id number] [address] [place] [phone] Sep, [facility] [address] [facility] [id number] [address] [place] [phone] Aug, Arthritis M19.90 [facility] [address] [place] [id number] [address] [place] [phone] Aug, Hyperparathyroidism E21.3 [facility] [address] [facility] [id number] [address] [place] [phone] Aug, Hyperparathyroidism E21.3 [facility] [address] [facility] [id number] [address] [place] [phone] Aug, Arthritis M19.90 [facility] [address] [place] [id number] [address] [place] [phone] Jul, Mass of throat R22.1 [facility] [address] [facility] [id number] [address] [place] [phone] Jul, [facility] [address] [facility] [id number] [address] [place] [phone] Jul, Arthritis M19.90 [facility] [address] [facility] [id number] [address] [place] [phone] Jun, Arthritis M19.90 [facility] [address] [place] [id number] [address] [place] [phone] Jun, [facility] [address] [id number] [address] [place] [phone] Jun, Renal insufficiency N28.9 an d 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 [facility] [address] [facility] [id number] [address] [place] [phone] 05 Jun, 2016 Medicare welcome exam Z00.00 ; Encounter for immunization Z23 ; Arthritis M19.90 ; Medicare annual wellness visit, initial Z00.00 ; Medicare annual wellness visit, subsequent Z00.00 and 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 [facility] [address] [id number] [address] [place] [phone] May, Renal insufficiency N28.9 an d 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 [facility] [address] [facility] [id number] [address] [place] [phone] May, Renal insufficiency N28.9 [facility] [address] [facility] [id number] [address] [place] [phone] May, Renal insufficiency N28.9 [facility] [address] [facility] [id number] [address] [place] [phone] May, [facility] [address] [facility] [id number] [address] [place] [phone] Apr, [facility] [address] [facility] [id number] [address] [place] [phone] Apr, [facility] [address] [facility] [id number] [address] [place] [phone] 14 Apr, 2016 Mass of throat R22.1 [facility] [address] [facility] [id number] [address] [place] [phone] 10 Apr, 2016 [facility] [address] [facility] [id number] [address] [place] [phone] 10 Apr, 2016 Mass of throat R22.1 [facility] [address] [facility] [id number] [address] [place] [phone] 04 Apr, 2016 Mass of throat R22.1 [facility] [address] [id number] [address] [place] [phone] Mar, [facility] [address] [id number] [address] [place] [phone] Mar, [facility] [address] [id number] [address] [place] [phone] Mar, [facility] [address] [id number] [address] [place] [phone] 24 Mar, 2016 Parathyroid abnormality E21. 5 and Encounter for immunization Z23 [facility] [address] [id number] [address] [place] [phone] Mar, [facility] [address] [id number] [address] [place] [phone] Mar, [facility] [address] [id number] [address] [place] [phone] 21 Feb, 2016 Renal insufficiency N28.9 an d Hyperparathyroidism E21.3 [facility] [address] [id number] [address] [place] [phone] 19 Feb, 2016 [facility] [address] [id number] [address] [place] [phone] 15 Feb, 2016 Renal insufficiency N28.9 an d Hyperparathyroidism E21.3 [facility] [address] [id number] [address] [place] [phone] 14 Feb, 2016 [facility] [address] [id number] [address] [place] [phone] 12 Feb, 2016 [facility] [address] [id number] [address] [place] [phone] 09 Feb, 2016 [facility] [address] [id number] [address] [place] [phone] Jan, [facility] [address] [facility] [id number] [address] [place] [phone] Jan, Arthritis M19.90 ; Lumbago w ith sciatica, right side M54.41 and Other chronic pain G89.29 [facility] [address] [place] [id number] [address] [place] [phone] Jan, [facility] [address] [place] [id number] [address] [place] [phone] Dec, Arthritis M19.90 ; Lumbago w ith sciatica, right side M54.41 and Other chronic pain G89.29 [facility] [address] [place] [id number] [address] [place] [phone] 16 Nov, 2015 Deficiency of other specifie d B group vitamins E53.8 ; Primary insomnia F51.01 ; Mood disorder F39 and Lumbago with sciatica, right side M54.41 [facility] [address] [place] [id number] [address] [place] [phone] Nov, Hyperparathyroidism E21.3 [place] [address] [place] [id number] [address] [place] [phone] Nov, Unspecified kidney failure N 19 and Hyperparathyroidism E21.3 [place] [address] [place] [id number] [address] [place] [phone] October, Hyperparathyroidism E21.3 [place] [address] [place] [id number] [place] [phone] October, [facility] [address] [place] [id number] [address] [place] [phone] October, Hyperparathyroidism E21.3 [facility] [address] [place] [id number] [address] [place] [phone] October, Hyperparathyroidism E21.3 [facility] [address] [place] [id number] [address] [place] [phone] Sep, Hyperparathyroidism E21.3 ; Hypercholesterolemia E78.0 and Arthritis M19.90 [facility] [address] [place] [id number] [address] [place] [phone] Aug, [facility] [address] [place] [id number] [address] [place] [phone] Aug, Deficiency of other specifie d B group vitamins E53.8 [facility] [address] [facility] [id number] [address] [place] [phone] Aug, [facility] [address] [facility] [id number] [address] [place] [phone] Jul, Urinary frequency R35.0 [facility] [address] [facility] [id number] [address] [place] [phone] Jul, Urinary frequency R35.0 [facility] [address] [facility] [id number] [address] [place] [phone] Jul, [facility] [address] [facility] [id number] [address] [place] [phone] Jul, [facility] [address] [facility] [id number] [address] [place] [phone] Jun, Pain in left knee M25.562 [facility] [address] [facility] [id number] [address] [place] [phone] Jun, [facility] [address] [facility] [id number] [address] [place] [phone] May, Swelling of left knee joint M25.462 [facility] [address] [facility] [id number] [address] [place] [phone] May, [facility] [address] [facility] [id number] [address] [place] [phone] May, [facility] [address] [facility] [id number] [address] [place] [id number] May, [facility] [address] [facility] [id number] [address] [place] [phone] Apr, Renal insufficiency N28.9 an d Chronic kidney disease, stage 4 (severe) N18.4 [facility] [address] [facility] [id number] [address] [place] [phone] Apr, Unspecified kidney failure N 19 [facility] [address] [id number] [address] [place] [phone] Apr, Unspecified kidney failure N 19 [facility] [address] [id number] [address] [place] [phone] Apr, [facility] [address] [facility] [id number] [address] [place] [phone] Apr, Hyperparathyroidism, unspeci fied 252.00 [facility] [address] [id number] [address] [place] [phone] Apr, [facility] [address] [id number] [address] [place] [phone] Mar, [facility] [address] [id number] [address] [place] [phone] Mar, [facility] [address] [id number] [address] [place] [phone] Mar, Hyperparathyroidism, unspeci fied 252.00 [facility] [address] [id number] [address] [place] [phone] Feb, [facility] [address] [id number] [address] [place] [phone] Feb, Otalgia 388.70 [facility] [address] [facility] [id number] [address] [place] [phone] Feb, [facility] [address] [id number] [address] [place] [phone] Feb, [facility] [address] [id number] [address] [place] [phone] Jan, [facility] [address] [id number] [address] [place] [phone] Jan, Hyperparathyroidism, unspeci fied 252.00 [facility] [address] [id number] [address] [place] [phone] Jan, [facility] [address] [id number] [address] [place] [phone] Jan, Other B-complex deficiencies 266.2 and Hyperparathyroidism, unspecified 252.00 [facility] [address] [id number] [address] [place] [phone] Jan, [facility] [address] [id number] [address] [place] [phone] Jan, [facility] [address] [id number] [address] [place] [phone] Jan, [facility] [address] [id number] [address] [place] [phone] Dec, [facility] [address] [id number] [address] [place] [phone] Dec, [facility] [address] [id number] [address] [place] [phone] Dec, [facility] [address] [id number] [address] [place] [phone] Nov, Routine check-up V70.0 and P re-op exam V72.84 [facility] [address] [id number] [address] [place] [phone] Nov, [facility] [address] [id number] [address] [place] [phone] Nov, [facility] [address] [id number] [address] [place] [phone] October, [facility] [address] [id number] [address] [place] [phone] October, Other B-complex deficiencies 266.2 [facility] [address] [id number] [address] [place] [phone] October, [facility] [address] [id number] [address] [place] [id number] Sep, [facility] [address] [id number] [address] [place] [id number] 13 Sep, 2014 [facility] [address] [id number] [address] [place] [address], [place] [id number] 20 Aug, 2014 [facility] [address] [id number] [address] [place] [address], [place] [id number] 20 Aug, 2014 [facility] [address] [id number] [address] [place] [address], [place] [id number] 17 Aug, 2014 [facility] [address] [id number] [address] [place] [address], [place] [id number] 17 Aug, 2014 [facility] [address] [id number] [address] [place] [address], [place] [id number] 11 Aug, 2014 [facility] [address] [id number] [address] [place] [address], [place] [id number] 11 Aug, 2014 [facility] [address] [id number] [address] [place] [address], [place] [id number] 18 Jul, 2014 [facility] [address] [id number] [address] [place] [id number] 18 Jul, 2014 [facility] [address] [id number] [address] [place] [id number] 17 Jul, 2014 [facility] [address] [id number] [address] [place] [id number] 17 Jul, 2014 [facility] [address] [id number] [address] [place] [address], [place] [id number] 12 Jul, 2014 [facility] [address] [id number] [address] [place] [id number] 12 Jul, 2014 [facility] [address] [id number] [address] [place] [address], [place] [id number] 10 Jul, 2014 [facility] [address] [id number] [address] [place] [id number] 10 Jul, 2014 [facility] [address] [id number] [address] [place] [id number] 09 Jul, 2014 [facility] [address] [id number] [address] [place] [address], [place] [id number] Jul, [facility] [address] [id number] [address] [place] [address], [place] [id number] Jul, [facility] [address] [id number] [address] [place] [address], [place] [id number] Jul, [facility] [address] [id number] [address] [place] [address], [place] [id number] Jul, [facility] [address] [id number] [address] [place] [address], [place] [id number] Jul, [facility] [address] [id number] [address] [place] [address], [place] [id number] Jun, [facility] [address] [id number] [address] [place] [address], [place] [id number] Jun, [facility] [address] [id number] [address] [place] [address], [place] [id number] Jun, [facility] [address] [id number] [address] [place] [address], [place] [id number] Jun, [facility] [address] [id number] [address] [place] [address], [place] [id number] Jun, [facility] [address] [id number] [address] [place] [address], [place] [id number] Jun, [facility] [address] [id number] [address] [place] [address], [place] [id number] Jun, [facility] [address] [id number] [address] [place] [address], [place] [address] Jun, [facility] [address] [id number] [address] [place] [address], [place] [address] Jun, [facility] [address] [id number] [address] [place] [address], [place] [address] Jun, [facility] [address] [id number] [address] [place] [address] [place] [address] Jun, [facility] [address] [id number] [address] [place] [address], [place] [address] Jun, [facility] [address] [id number] [address] [place] [address], [place] [address] Jun, [facility] [address] [id number] [address] [place] [address], [place] [address] Jun, [facility] [address] [id number] [address] [place] [address], [place] [address] May, [facility] [address] [id number] [address] [place] [address], [place] [address] May, [facility] [address] [id number] [address] [place] [address], [place] [address] May, [facility] [address] [id number] [address] [place] [address], [place] [address] May, [facility] [address] [id number] [address] [place] [address], [place] [address] Apr, [facility] [address] [id number] [address] [place] [address], [place] [address] Apr, [facility] [address] [id number] [address] [place] [address], [place] [address] Apr, [facility] [address] [id number] [address] [place] [address], [place] [address] Apr, [facility] [address] [id number] [address] [place] [address], [place] [address] Apr, [facility] [address] [id number] [address] [place] [address], [place] [address] Apr, [facility] [address] [id number] [address] [place] [address], [place] [address] Mar, [facility] [address] [id number] [address] [place] [address], [place] [address] Mar, [facility] [address] [id number] [address] [place] [address], [place] [address] 22 Mar, 2014 [facility] [address] [id number] [address] [place] [address], [place] [address] 22 Mar, 2014 [facility] [address] [id number] [address] [place] [address], [place] [address] 15 Mar, 2014 [facility] [address] [id number] [address] [place] [address], [place] [address] 15 Mar, 2014 [facility] [address] [id number] [address] [place] [address], [place] [address] 13 Mar, 2014 [facility] [address] [id number] [address] [place] [address], [place] [address] 13 Mar, 2014 [facility] [address] [id number] [address] [place] [address], [place] [address] Mar, [facility] [address] [id number] [address] [place] [address], [place] [address] 07 Mar, 2014 [facility] [address] [id number] [address] [place] [address], [place] [address] 07 Mar, 2014 [facility] [address] [id number] [address] [place] [address], [place] [address] 07 Mar, 2014 [facility] [address] [id number] [address] [place] [address], [place] [address] 06 Mar, 2014 [facility] [address] [id number] [address] [place] [address], [place] [address] 26 Feb, 2013 [facility] [address] [id number] [address] [place] [address], [place] [address] 26 Feb, 2013 [facility] [address] [id number] [address] [place] [address], [place] [address] 23 Feb, 2013 [facility] [address] [id number] [address] [place] [address], [place] [address] 23 Feb, 2013 [facility] [address] [id number] [address] [place] [address], [place] [address] 19 Feb, 2014 [facility] [address] [id number] [facility] [place] [address] 19 Feb, 2014 [facility] [address] [id number] [address] [place] [address], [place] [address] 13 Feb, 2014 [facility] [address] [id number] [address] [place] [address], [place] [address] Feb, [facility] [address] [id number] [address] [place] [address], [place] [address] 12 Feb, 2014 [facility] [address] [id number] [address] [place] [address], [place] [address] Feb, [facility] [address] [id number] [address] [place] [address], [place] [address] Jan, [facility] [address] [id number] [address] [place] [address], [place] [address] Jan, [facility] [address] [id number] [address] [place] [address], [place] [address] Dec, [facility] [address] [id number] [address] [place] [address], [place] [address] Dec, [facility] [address] [id number] [address] [place] [address], [place] [address] Dec, [facility] [address] [id number] [address] [place] [address], [place] [address] Dec, [facility] [address] [id number] [address] [place] [address], [place] [address] Dec, [facility] [address] [id number] [address] [place] [address], [place] [address] Dec, [facility] [address] [id number] [address] [place] [address], [place] [address] Nov, [facility] [address] [id number] [address] [place] [address], [place] [address] Nov, [facility] [address] [id number] [facility] [place] [address] Nov, [facility] [address] [id number] [address] [place] [address], [place] [address] Nov, [facility] [address] [id number] [facility] [place] [address] October, [facility] [address] [id number] [address] [place] [address], [place] [address] October, [facility] [address] [id number] [address] [place] [address], [place] [address] October, [facility] [address] [id number] [address] [place] [address], [place] [address] October, [facility] [address] [id number] [address] [place] [address], [place] [address] October, [facility] [address] [id number] [address] [place] [address], [place] [address] October, [facility] [address] [id number] [address] [place] [address], [place] [address] October, [facility] [address] [id number] [address] [place] [address], [place] [address] October, [facility] [address] [id number] [address] [place] [address], [place] [address] October, [facility] [address] [id number] [address] [place] [address], [place] [address] October, [facility] [address] [id number] [address] [place] [address], [place] [address] October, [facility] [address] [id number] [address] [place] [address], [place] [address] October, [facility] [address] [id number] [address] [place] [address], [place] [address] October, [facility] [address] [id number] [address] [place] [address], [place] [address] October, [facility] [address] [id number] [address] [place] [address], [place] [address] October, [facility] [address] [id number] [address] [place] [address], [place] [address] October, [facility] [address] [id number] [address] [place] [address], [place] [address] Sep, [facility] [address] [id number] [address] [place] [address], [place] [address] Sep, [facility] [address] [id number] [address] [place] [address], [place] [address] Sep, [facility] [address] [id number] [address] [place] [address], [place] [address] Sep, [facility] [address] [id number] [address] [place] [address], [place] [address] Sep, [facility] [address] [id number] [address] [place] [address], [place] [address] Sep, [facility] [address] [id number] [address] [place] [address], [place] [address] Aug, [facility] [address] [id number] [address] [place] [address], [place] [address] Aug, [facility] [address] [id number] [address] [place] [address], [place] [address] Aug, [facility] [address] [id number] [address] [place] [address], [place] [address] Aug, [facility] [address] [id number] [address] [place] [address], [place] [address] Aug, [facility] [address] [id number] [address] [place] [address], [place] [address] Aug, [facility] [address] [id number] [address] [place] [address], [place] [address] Jul, [facility] [address] [id number] [address] [place] [id number] Jul, [facility] [address] [id number] [address] [place] [address], [place] [address] Jul, [facility] [address] [id number] [address] [place] [address], [place] [address] Jul, [facility] [address] [id number] [address] [place] [address], [place] [address] Jun, [facility] [address] [id number] [address] [place] [address], [place] [address] Jun, [facility] [address] [id number] [address] [place] [address], [place] [address] May, [facility] [address] [id number] [address] [place] [address], [place] [address] May, [facility] [address] [id number] [address] [place] [address], [place] [address] May, [facility] [address] [id number] [address] [place] [address], [place] [address] May, [facility] [address] [id number] [address] [place] [address], [place] [address] May, [facility] [address] [id number] [address] [place] [address], [place] [address] Apr, [facility] [address] [id number] [address] [place] [address], [place] [address] Apr, [facility] [address] [id number] [address] [place] [id number] Apr, [facility] [address] [id number] [address] [place] [id number] Apr, [facility] [address] [id number] [address] [place] [address], [place] [address] Apr, [facility] [address] [id number] [address] [place] [id number] Apr, [facility] [address] [id number] [address] [place] [address], [place] [address] 15 Mar, 2013 [facility] [address] [id number] [address] [place] [address], [place] [address] 15 Mar, 2013 [facility] [address] [id number] [address] [place] [address], [place] [address] 14 Mar, 2013 [facility] [address] [id number] [address] [place] [address], [place] [address] 14 Mar, 2013 [facility] [address] [id number] [address] [place] [address], [place] [address] 11 Mar, 2013 [facility] [address] [id number] [address] [place] [address], [place] [address] 11 Mar, 2013 [facility] [address] [id number] [address] [place] [address], [place] [address] 23 Feb, 2013 [facility] [address] [id number] [address] [place] [address], [place] [address] 19 Feb, 2013 [facility] [address] [id number] [address] [place] [address], [place] [address] 04 Feb, 2013 [facility] [address] [id number] [address] [place] [address], [place] [address] 30 Jan, 2013 [facility] [address] [id number] [address] [place] [address], [place] [address] Jan, [facility] [address] [id number] [address] [place] [address], [place] [address] Jan, [facility] [address] [id number] [address] [place] [address], [place] [address] 16 Jan, 2013 [facility] [address] [id number] [address] [place] [address], [place] [address] Jan, [facility] [address] [id number] [address] [place] [address], [place] [address] Jan, [facility] [address] [id number] [address] [place] [address], [place] [address] Dec, [facility] [address] [id number] [address] [place] [address], [place] [address] Dec, [facility] [address] [id number] [address] [place] [address], [place] [address] Dec, [facility] [address] [id number] [address] [place] [address], [place] [address] Dec, [facility] [address] [id number] [address] [place] [address], [place] [address] Dec, [facility] [address] [id number] [address] [place] [address], [place] [address] Dec, [facility] [address] [id number] [address] [place] [address], [place] [address] Nov, [facility] [address] [id number] [address] [place] [address], [place] [address] Nov, [facility] [address] [id number] [address] [place] [address], [place] [address] Nov, [facility] [address] [id number] [address] [place] [address], [place] [address] Nov, [facility] [address] [id number] [address] [place] [address], [place] [address] Nov, [facility] [address] [id number] [address] [place] [address], [place] [address] Nov, [facility] [address] [id number] [address] [place] [address], [place] [address] October, [facility] [address] [id number] [address] [place] [address], [place] [address] October, [facility] [address] [id number] [address] [place] [address], [place] [address] October, [facility] [address] [id number] [address] [place] [address], [place] [address] October, [facility] [address] [id number] [address] [place] [address], [place] [address] 2012 [facility] [address] [id number] [address] [place] [address], [place] [address] 30 Sep, 2012 [facility] [address] [id number] [address] [place] [address], [place] [address] 23 Sep, 2012 [facility] [address] [id number] [address] [place] [address], [place] [address] Sep, [facility] [address] [id number] [address] [place] [address], [place] [address] 18 Sep, 2012 [facility] [address] [id number] [address] [place] [address], [place] [address] Sep, [facility] [address] [id number] [address] [place] [address], [place] [address] Aug, [facility] [address] [id number] [address] [place] [address], [place] [address] Aug, [facility] [address] [id number] [address] [place] [address], [place] [address] 04 Aug, 2012 [facility] [address] [id number] [address] [place] [address], [place] [address] Jul, [facility] [address] [id number] [address] [place] [address], [place] [address] Jul, [facility] [address] [id number] [address] [place] [address], [place] [address] Jul, [facility] [address] [id number] [address] [place] [address], [place] [address] 08 Jul, 2012 [facility] [address] [id number] [address] [place] [address], [place] [address] 06 Jul, 2012 [facility] [address] [id number] [address] [place] [address], [place] [address] 05 Jul, 2012 [facility] [address] [id number] [address] [place] [address], [place] [address] Jun, [facility] [address] [id number] [address] [place] [address], [place] [address] Apr, [facility] [address] [id number] [address] [place] [address], [place] [address] Apr, [facility] [address] [id number] [address] [place] [address], [place] [address] Apr, [facility] [address] [id number] [address] [place] [address], [place] [address] Apr, [facility] [address] [id number] [address] [place] [address], [place] [address] Mar, [facility] [address] [id number] [address] [place] [address], [place] [address] Mar, [facility] [address] [id number] [address] [place] [address], [place] [address] Mar, [facility] [address] [id number] [address] [place] [address], [place] [address] Mar, [facility] [address] [id number] [address] [place] [address], [place] [address] Mar, [facility] [address] [id number] [address] [place] [address], [place] [address] Feb, [facility] [address] [id number] [address] [place] [address], [place] [id number] Jan, [facility] [address] [id number] [address] [place] [phone] Jan, [facility] [address] [id number] [address] [place] [address], [place] [id number] Jan, [facility] [address] [id number] [address] [place] [address], [place] [id number] Dec, [facility] [address] [id number] [address] [place] [address], [place] [id number] Nov, [facility] [address] [id number] [address] [place] [phone] Nov, [facility] [address] [id number] [address] [place] [phone] Nov, [facility] [address] [id number] [address] [place] [id number] Nov, [facility] [address] [id number] [address] [place] [phone] Nov, [facility] [address] [id number] [address] [place] [phone] October, [facility] [address] [id number] [address] [place] [phone] October, [facility] [address] [id number] [address] [place] [phone] October, [facility] [address] [facility] [id number] [address] [place] [phone] October, [facility] [address] [id number] [address] [place] [phone] October, IMMUNIZATIONS Vaccine Route Administration Date Status FLUARIX QUAD (3 AND UP) 2017 IM Intramuscular Jul 07, 2017 Ad ministered SOCIAL HISTORY Never Assessed REASON FOR VISIT H&P physical. Need pre op for left foot surger 07/20/2017. Maurice ANGELO PLAN OF CARE Activity Details Follow Up Regular appt Reason: VITAL SIGNS Height 66 in 2017-07-07 Weight 258.8 lbs 2017-07-07 Temperature 98.3 degrees Fahrenheit 2017-07-07 Respiratory Rate 20 2017-07-07 BMI 41.77 kg/m2 2017-07-07 Blood pressure systolic 138 mmHg 2017-07-07 Blood pressure diastolic 82 mmHg 2017-07-07 MEDICATIONS Medication Instructions Dosage Frequency Start Date End Date Duration S ashly Meclizine HCl 25 MG Orally 4 times a day 1 tablet as needed 6h 26 J , 2016 Active Neurontin 100 mg Orally 2 times a day 1 capsule 12h 27 Sep, 2016 Not-Taking Fluticasone Propionate 50 MCG/ACT Nasally Once a day 1 spray in each nostril 24h Feb, Active Hydrocodone-Acetaminophen 10-325 MG Orally 3 times a day 1 tablet a s needed 8h 12 May, 2017 28 days Active Cholecalciferol 42197 UNIT 1 capsule monthly Not-Taking Calcium 500 mg Orally 3 times a day 1 tablet 8h Active Bicarb-Mg (CRRT) 10 by oral route 2 times a day 2 tablets 12h Active Vitamin D 1000 UNIT Orally Once a day 1 tablet 24h Not-Taking Guaifenesin 400 mg Orally every 4 hrs 1 tablet as needed 4h 24 Jul, 2016 Not-Taking Voltaren by topical route Dec, N ot-Taking Lisinopril 10 mg 1 tablet 24h 30 Active Cetirizine HCl 10 MG Orally Once a day 1 tablet 24h Active Zolpidem Tartrate 10 mg Orally Once a day 1 tablet at bedtime 24h 28 days Active Levothyroxine Sodium 50 mcg Orally Once a day 1 tablet on an empty stomach in the morning 24h 30 Active Multivital [facility] ve Omeprazole 40 mg 1 capsule 24h 30 Activ e Chlorzoxazone 500 mg 1 tablet 12h Ac tive RESULTS No Results PROCEDURES Procedure Date Ordered Result Body Site [facility] VISIT ESTABLISHED PATIENT Jul 07, 2017 SINGLE IMMUNIZATION ADMIN Jul 07, 2017 FLUARIX QUAD (3 AND UP) 2016Jul 07, 2017 INSTRUCTIONS MEDICATIONS ADMINISTERED No Known Medications [...]
--- OUTSIDE RECORDS SUMMARY | 2020-01-25 08:09 | XMS REPORT ---
Author Author eVlma CORDERO Organization [facility] Address [address] [place] [address] Care Team Providers Care Data Integration Developer Name Role Phone STEPHAN CORDERO Unavailable PROBLEMS Type Condition ICD9-CM Code IBP54-DP Code Onset Dates Condition S tatus SNOMED Code Problem Hypercholesteremia E78.0 Active 1 1431550 Problem Arthritis M19.90 Active 8317596 Problem Hyperparathyroidism E21.3 Active 03644160 Problem Primary insomnia F51.01 Active 397 2004 Problem Myalgia M79.1 Active 16320360 Problem Chronic kidney disease, stage 4 (severe) N18.4 Active 793449024 Problem BPV (benign positional vertigo), bilateral H81.13 Active 426869876 Problem Corns L84 Active 827761172 Problem Mood disorder F39 Active 616055 05 Problem 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 Active 21922724 Problem 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 Active 33912334 ALLERGIES No Information ENCOUNTERS Encounter Location Date Diagnosis [place] [address] [place] [id number] [address] [place] [address] Nov, Arthritis M19.90 [place] [address] [place] [id number] [address] [place] [address] Nov, Labyrinthitis of left ear H8 3.02 [place] [address] [facility] [id number] [address] [place] [address] Nov, BMI 40.0-44.9, adult Z68.41 ; Chronic kidney disease, stage 4 (severe) N18.4 and Acute right-sided thoracic back pain M54.6 [place] [address] [facility] [id number] [address] [place] [address] October, Labyrinthitis of left ear H8 3.02 and Arthritis M19.90 [place] [address] [facility] [id number] [address] [place] [phone] Sep, BPV (benign positional verti go), bilateral H81.13 ; Dysfunction of left eustachian tube H69.82 and BMI 40.0-44.9, adult Z68.41 [facility] [address] [facility] [id number] [address] [place] [address] Sep, Labyrinthitis of left ear H8 3.02 and Arthritis M19.90 [facility] [address] [id number] [address] [place] [address] Sep, [facility] [address] [facility] [id number] [address] [place] [address] Sep, [facility] [address] [facility] [id number] [address] [place] [phone] Sep, Chronic kidney disease, stag e 4 (severe) N18.4 [facility] [address] [facility] [id number] [address] [place] [phone] Sep, Chronic kidney disease, stag e 4 (severe) N18.4 [facility] [address] [facility] [id number] [address] [place] [phone] Aug, Labyrinthitis of left ear H8 3.02 and Arthritis M19.90 [facility] [address] [facility] [id number] [address] [place] [address] Aug, [facility] [address] [facility] [id number] [address] [place] [id number] Jul, [facility] [address] [facility] [id number] [address] [place] [address] Jul, Arthritis M19.90 and Labyrin thitis of left ear H83.02 [facility] [address] [facility] [id number] [address] [place] [address] Jul, [facility] [address] [place] [id number] [address] [place] [address] Jun, [place] [address] [place] [id number] [address] [place] [address] Jun, Arthritis M19.90 and Labyrin thitis of left ear H83.02 [place] [address] [place] [id number] [address] [place] [address] Jun, Pre-op evaluation Z01.818 ; BMI 40.0-44.9, adult Z68.41 and Encounter for immunization Z23 [place] [address] [place] [id number] [address] [place] [address] May, Arthritis M19.90 and Labyrin thitis of left ear H83.02 [place] [address] [place] [id number] [place] [address] Apr, Labyrinthitis of left ear H8 3.02 [place] [address] [address] Apr, Arthritis M19.90 and Labyrin thitis of left ear H83.02 [place] [address] [address] Mar, Arthritis M19.90 and Labyrin thitis of left ear H83.02 [place] [address] [place] [id number] [address] [place] [address] Mar, Chronic kidney disease, stag e 4 (severe) N18.4 [place] [address] [place] [id number] [address] [place] [address] Feb, Arthritis M19.90 and Labyrin thitis of left ear H83.02 [place] [address] [place] [id number] [place] [address] Jan, Labyrinthitis of left ear H8 3.02 and 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 [place] [address] [place] [id number] [address] [place] [address] Dec, Arthritis M19.90 [facility] [address] [facility] [id number] [address] [place] [address] Dec, BPV (benign positional verti go), bilateral H81.13 [facility] [address] [facility] [id number] [address] [place] [address] Dec, [facility] [address] [place] [id number] [address] [place] [address] Dec, [facility] [address] [facility] [id number] [address] [place] [address] Dec, [facility] [address] [facility] [id number] [address] [place] [address] Nov, Arthritis M19.90 and Deficie ncy of other specified B group vitamins E53.8 [facility] [address] [facility] [id number] [address] [place] [address] Nov, Arthritis M19.90 [facility] [address] [facility] [id number] [address] [place] [address] Nov, Hyperparathyroidism E21.3 [facility] [address] [place] [id number] [address] [place] [address] October, [facility] [address] [place] [id number] [address] [place] [address] October, Hyperparathyroidism E21.3 [facility] [address] [place] [id number] [address] [place] [phone] October, [facility] [address] [place] [id number] [address] [place] [address] October, Renal insufficiency N28.9 an d Hyperparathyroidism E21.3 [facility] [address] [facility] [id number] [address] [place] [address] October, [facility] [address] [place] [id number] [address] [place] [address] October, Renal insufficiency N28.9 an d Hyperparathyroidism E21.3 [facility] [address] [place] [id number] [address] [place] [address] October, Arthritis M19.90 [facility] [address] [facility] [id number] [address] [place] [address] Sep, [facility] [address] [facility] [id number] [address] [place] [phone] Sep, Lumbar neuritis M54.16 ; Tho racic abscess J86.9 and 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 [facility] [address] [facility] [id number] [address] [place] [address] Sep, [facility] [address] [facility] [id number] [address] [place] [address] Aug, Arthritis M19.90 [facility] [address] [facility] [id number] [address] [place] [address] Aug, Hyperparathyroidism E21.3 [facility] [address] [facility] [id number] [address] [place] [address] Aug, Hyperparathyroidism E21.3 [facility] [address] [facility] [id number] [address] [place] [address] Aug, Arthritis M19.90 [facility] [address] [facility] [id number] [address] [place] [address] Jul, Mass of throat R22.1 [facility] [address] [facility] [id number] [address] [place] [address] Jul, [facility] [address] [facility] [id number] [address] [place] [address] Jul, Arthritis M19.90 [facility] [address] [facility] [id number] [address] [place] [address] Jun, Arthritis M19.90 [facility] [address] [facility] [id number] [address] [place] [address] Jun, [facility] [address] [facility] [id number] [address] [place] [address] Jun, Renal insufficiency N28.9 an d 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 [facility] [address] [facility] [id number] [address] [place] [address] 05 Jun, 2016 Medicare welcome exam Z00.00 ; Encounter for immunization Z23 ; Arthritis M19.90 ; Medicare annual wellness visit, initial Z00.00 ; Medicare annual wellness visit, subsequent Z00.00 and 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 [facility] [address] [facility] [id number] [address] [place] [address] May, Renal insufficiency N28.9 an d 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 [facility] [address] [facility] [id number] [address] [place] [address] May, Renal insufficiency N28.9 [facility] [address] [facility] [id number] [address] [place] [address] May, Renal insufficiency N28.9 [facility] [address] [facility] [id number] [address] [place] [address] May, [facility] [address] [facility] [id number] [address] [place] [phone] Apr, [facility] [address] [facility] [id number] [address] [place] [phone] Apr, [facility] [address] [facility] [id number] [address] [place] [address] Apr, Mass of throat R22.1 [facility] [address] [facility] [id number] [address] [place] [phone] 10 Apr, 2016 [facility] [address] [facility] [id number] [address] [place] [phone] 10 Apr, 2016 Mass of throat R22.1 [facility] [address] [facility] [id number] [address] [place] [phone] 04 Apr, 2016 Mass of throat R22.1 [facility] [address] [facility] [id number] [address] [place] [address] Mar, [facility] [address] [id number] [address] [place] [id number] Mar, [facility] [address] [id number] [address] [place] [address] Mar, [facility] [address] [facility] [id number] [address] [place] [address] Mar, Parathyroid abnormality E21. 5 and Encounter for immunization Z23 [facility] [address] [id number] [address] [place] [phone] 17 Mar, 2016 [facility] [address] [id number] [address] [place] [address] Mar, [facility] [address] [facility] [id number] [address] [place] [phone] 21 Feb, 2016 Renal insufficiency N28.9 an d Hyperparathyroidism E21.3 [facility] [address] [id number] [address] [place] [address] 19 Feb, 2016 [facility] [address] [id number] [address] [place] [address] 15 Feb, 2016 Renal insufficiency N28.9 an d Hyperparathyroidism E21.3 [facility] [address] [facility] [id number] [address] [place] [address] 14 Feb, 2016 [facility] [address] [facility] [id number] [address] [place] [address] 12 Feb, 2016 [facility] [address] [id number] [address] [place] [phone] 09 Feb, 2016 [facility] [address] [id number] [address] [place] [phone] Jan, [facility] [address] [facility] [id number] [address] [place] [address] Jan, Arthritis M19.90 ; Lumbago w ith sciatica, right side M54.41 and Other chronic pain G89.29 [facility] [address] [facility] [id number] [address] [place] [address] Jan, [place] [id number] [place] [address] Dec, Arthritis M19.90 ; Lumbago w ith sciatica, right side M54.41 and Other chronic pain G89.29 [place] [address] [place] [id number] [place] [address] Nov, Deficiency of other specifie d B group vitamins E53.8 ; Primary insomnia F51.01 ; Mood disorder F39 and Lumbago with sciatica, right side M54.41 [place] [address] [place] [id number] [place] [address] Nov, Hyperparathyroidism E21.3 [place] [address] [place] [id number] [address] [place] [address] Nov, Unspecified kidney failure N 19 and Hyperparathyroidism E21.3 [place] [address] [place] [id number] [address] [place] [address] October, Hyperparathyroidism E21.3 [place] [address] [place] [id number] [place] [address] October, [place] [address] [place] [id number] [address] [place] [address] October, Hyperparathyroidism E21.3 [place] [address] [place] [id number] [address] [place] [address] October, Hyperparathyroidism E21.3 [place] [address] [place] [id number] [address] [place] [address] Sep, Hyperparathyroidism E21.3 ; Hypercholesterolemia E78.0 and Arthritis M19.90 [facility] [address] [facility] [id number] [address] [place] [address] Aug, [place] [address] [place] [id number] [address] [place] [phone] Aug, Deficiency of other specifie d B group vitamins E53.8 [facility] [address] [facility] [id number] [address] [place] [address] Aug, [facility] [address] [facility] [id number] [address] [place] [address] Jul, Urinary frequency R35.0 [facility] [address] [facility] [id number] [address] [place] [phone] Jul, Urinary frequency R35.0 [facility] [address] [facility] [id number] [address] [place] [address] Jul, [facility] [address] [facility] [id number] [address] [place] [address] Jul, [facility] [address] [facility] [id number] [address] [place] [address] Jun, Pain in left knee M25.562 [facility] [address] [facility] [id number] [address] [place] [address] Jun, [facility] [address] [facility] [id number] [address] [place] [address] May, Swelling of left knee joint M25.462 [facility] [address] [facility] [id number] [address] [place] [address] May, [facility] [address] [facility] [id number] [address] [place] [address] May, [facility] [address] [facility] [id number] [address] [place] [address] May, [facility] [address] [facility] [id number] [address] [place] [address] Apr, Renal insufficiency N28.9 an d Chronic kidney disease, stage 4 (severe) N18.4 [facility] [address] [facility] [id number] [address] [place] [phone] Apr, Unspecified kidney failure N 19 [facility] [address] [id number] [address] [place] [address] Apr, Unspecified kidney failure N 19 [facility] [address] [id number] [address] [place] [address] Apr, [facility] [address] [id number] [address] [place] [address] Apr, Hyperparathyroidism, unspeci fied 252.00 [facility] [address] [id number] [address] [place] [address] Apr, [facility] [address] [id number] [address] [place] [address] Mar, [facility] [address] [id number] [address] [place] [address] Mar, [facility] [address] [facility] [id number] [address] [place] [address] Mar, Hyperparathyroidism, unspeci fied 252.00 [facility] [address] [id number] [address] [place] [phone] Feb, [facility] [address] [id number] [address] [place] [address] Feb, Otalgia 388.70 [facility] [address] [facility] [id number] [address] [place] [phone] Feb, [facility] [address] [id number] [address] [place] [address] Feb, [facility] [address] [id number] [address] [place] [address] Jan, [facility] [address] [id number] [address] [place] [address] Jan, Hyperparathyroidism, unspeci fied 252.00 [facility] [address] [id number] [address] [place] [address] Jan, [facility] [address] [facility] [id number] [address] [place] [address] Jan, Other B-complex deficiencies 266.2 and Hyperparathyroidism, unspecified 252.00 [facility] [address] [id number] [address] [place] [address] Jan, [facility] [address] [id number] [address] [place] [address] Jan, [facility] [address] [id number] [address] [place] [address] Jan, [facility] [address] [id number] [address] [place] [address] Dec, [facility] [address] [id number] [address] [place] [address] Dec, [facility] [address] [id number] [address] [place] [address] Dec, [facility] [address] [id number] [address] [place] [address] Nov, Routine check-up V70.0 and P re-op exam V72.84 [facility] [address] [id number] [address] [place] [phone] Nov, [facility] [address] [id number] [address] [place] [phone] Nov, [facility] [address] [id number] [address] [place] [phone] October, [facility] [address] [id number] [address] [place] [address] October, Other B-complex deficiencies 266.2 [facility] [address] [id number] [address] [place] [phone] October, [facility] [address] [id number] [address] [place] [phone] Sep, [facility] [address] [id number] [address] [place] [phone] Sep, [facility] [address] [id number] [facility] [place] [address] 20 Aug, 2014 [facility] [address] [id number] [address] [place] [address], [place] [address] 20 Aug, 2014 [facility] [address] [id number] [address] [place] [address], [place] [id number] 17 Aug, 2014 [facility] [address] [id number] [address] [place] [address], [place] [id number] 17 Aug, 2014 [facility] [address] [id number] [address] [place] [address], [place] [address] 11 Aug, 2014 [facility] [address] [id number] [address] [place] [address], [place] [address] 11 Aug, 2014 [facility] [address] [id number] [address] [place] [address], [place] [address] 18 Jul, 2014 [facility] [address] [id number] [address] [place] [address], [place] [id number] 18 Jul, 2014 [facility] [address] [id number] [address] [place] [address], [place] [address] 17 Jul, 2014 [facility] [address] [id number] [address] [place] [address], [place] [id number] 17 Jul, 2014 [facility] [address] [id number] [address] [place] [address], [place] [id number] 12 Jul, 2014 [facility] [address] [id number] [address] [place] [address], [place] [id number] 12 Jul, 2014 [facility] [address] [id number] [address] [place] [address], [place] [id number] 10 Jul, 2014 [facility] [address] [id number] [address] [place] [address], [place] [id number] 10 Jul, 2014 [facility] [address] [id number] [address] [place] [address], [place] [id number] 09 Jul, 2014 [facility] [address] [id number] [address] [place] [address] [place] [id number] Jul, [facility] [address] [id number] [address] [place] [address], [place] [id number] Jul, [facility] [address] [id number] [address] [place] [address], [place] [address] Jul, [facility] [address] [id number] [address] [place] [address], [place] [address] Jul, [facility] [address] [id number] [address] [place] [address], [place] [address] Jul, [facility] [address] [id number] [address] [place] [address], [place] [id number] Jun, [facility] [address] [id number] [address] [place] [address], [place] [id number] Jun, [facility] [address] [id number] [address] [place] [address], [place] [address] Jun, [facility] [address] [id number] [address] [place] [address], [place] [id number] Jun, [facility] [address] [id number] [address] [place] [address], [place] [id number] Jun, [facility] [address] [id number] [address] [place] [address], [place] [address] Jun, [facility] [address] [id number] [address] [place] [address], [place] [address] Jun, [facility] [address] [id number] [address] [place] [address], [place] [id number] Jun, [facility] [address] [id number] [address] [place] [address], [place] [id number] Jun, [facility] [address] [id number] [address] [place] [address], [place] [id number] Jun, [facility] [address] [id number] [address] [place] [address], [place] [address] Jun, [facility] [address] [id number] [address] [place] [address], [place] [id number] Jun, [facility] [address] [id number] [address] [place] [address], [place] [id number] Jun, [facility] [address] [id number] [address] [place] [address], [place] [id number] Jun, [facility] [address] [id number] [address] [place] [address], [place] [address] May, [facility] [address] [id number] [address] [place] [address], [place] [address] May, [facility] [address] [id number] [address] [place] [address], [place] [address] May, [facility] [address] [id number] [address] [place] [address], [place] [address] May, [facility] [address] [id number] [address] [place] [address], [place] [address] Apr, [facility] [address] [id number] [address] [place] [address], [place] [address] Apr, [facility] [address] [id number] [address] [place] [address], [place] [address] Apr, [facility] [address] [id number] [address] [place] [address], [place] [address] Apr, [facility] [address] [id number] [address] [place] [address], [place] [address] Apr, [facility] [address] [id number] [address] [place] [address], [place] [address] Apr, [facility] [address] [id number] [address] [place] [address], [place] [address] Mar, [facility] [address] [id number] [address] [place] [address], [place] [address] Mar, [facility] [address] [id number] [address] [place] [id number] 22 Mar, 2014 [facility] [address] [id number] [address] [place] [address], [place] [address] 22 Mar, 2014 [facility] [address] [id number] [address] [place] [id number] 15 Mar, 2014 [facility] [address] [id number] [address] [place] [address], [place] [address] 15 Mar, 2014 [facility] [address] [id number] [address] [place] [id number] 13 Mar, 2014 [facility] [address] [id number] [address] [place] [address], [place] [address] 13 Mar, 2014 [facility] [address] [id number] [address] [place] [address], [place] [address] 07 Mar, 2014 [facility] [address] [id number] [address] [place] [id number] 07 Mar, 2014 [facility] [address] [id number] [address] [place] [address], [place] [address] 07 Mar, 2014 [facility] [address] [id number] [address] [place] [id number] 07 Mar, 2014 [facility] [address] [id number] [address] [place] [id number] 06 Mar, 2014 [facility] [address] [id number] [address] [place] [id number] 26 Feb, 2013 [facility] [address] [id number] [address] [place] [id number] 26 Feb, 2013 [facility] [address] [id number] [address] [place] [address], [place] [address] 23 Feb, 2013 [facility] [address] [id number] [address] [place] [address], [place] [address] 23 Feb, 2013 [facility] [address] [id number] [address] [place] [address], [place] [address] 19 Feb, 2013 [facility] [address] [id number] [facility] [place] [address] 19 Feb, 2014 [facility] [address] [id number] [facility] [place] [address] 13 Feb, 2014 [facility] [address] [id number] [address] [place] [address], [place] [address] 13 Feb, 2014 [facility] [address] [id number] [address] [place] [address], [place] [address] 12 Feb, 2014 [facility] [address] [id number] [address] [place] [address], [place] [address] Feb, [facility] [address] [id number] [address] [place] [address], [place] [address] Jan, [facility] [address] [id number] [address] [place] [address], [place] [address] Jan, [facility] [address] [id number] [address] [place] [address], [place] [address] Dec, [facility] [address] [id number] [address] [place] [address], [place] [address] Dec, [facility] [address] [id number] [address] [place] [address], [place] [address] Dec, [facility] [address] [id number] [address] [place] [address], [place] [address] Dec, [facility] [address] [id number] [address] [place] [address], [place] [address] Dec, [facility] [address] [id number] [address] [place] [address], [place] [address] Dec, [facility] [address] [id number] [address] [place] [address], [place] [address] Nov, [facility] [address] [id number] [address] [place] [address], [place] [address] Nov, [facility] [address] [id number] [address] [place] [address], [place] [address] Nov, [facility] [address] [id number] [facility] [place] [address] Nov, [facility] [address] [id number] [address] [place] [address], [place] [address] October, [facility] [address] [id number] [address] [place] [address], [place] [address] October, [facility] [address] [id number] [address] [place] [address], [place] [address] October, [facility] [address] [id number] [address] [place] [address], [place] [address] October, [facility] [address] [id number] [address] [place] [address], [place] [address] October, [facility] [address] [id number] [address] [place] [address], [place] [address] October, [facility] [address] [id number] [address] [place] [address], [place] [address] October, [facility] [address] [id number] [address] [place] [address], [place] [address] October, [facility] [address] [id number] [address] [place] [address], [place] [address] October, [facility] [address] [id number] [address] [place] [address], [place] [address] October, [facility] [address] [id number] [address] [place] [address], [place] [address] October, [facility] [address] [id number] [address] [place] [address], [place] [address] October, [facility] [address] [id number] [address] [place] [address], [place] [address] October, [facility] [address] [id number] [address] [place] [address], [place] [address] October, [facility] [address] [id number] [address] [place] [address], [place] [address] October, [facility] [address] [id number] [address] [place] [address], [place] [address] October, [facility] [address] [id number] [address] [place] [address], [place] [address] Sep, [facility] [address] [id number] [address] [place] [address], [place] [address] Sep, [facility] [address] [id number] [address] [place] [address], [place] [address] Sep, [facility] [address] [id number] [address] [place] [address], [place] [address] Sep, [facility] [address] [id number] [address] [place] [address], [place] [address] Sep, [facility] [address] [id number] [address] [place] [address], [place] [address] Sep, [facility] [address] [id number] [address] [place] [address], [place] [address] Aug, [facility] [address] [id number] [address] [place] [address], [place] [address] Aug, [facility] [address] [id number] [address] [place] [address], [place] [address] Aug, [facility] [address] [id number] [address] [place] [address], [place] [address] Aug, [facility] [address] [id number] [address] [place] [address], [place] [address] Aug, [facility] [address] [id number] [address] [place] [address], [place] [address] Aug, [facility] [address] [id number] [address] [place] [address], [place] [address] Jul, [facility] [address] [id number] [address] [place] [address], [place] [address] Jul, [facility] [address] [id number] [address] [place] [address], [place] [address] Jul, [facility] [address] [id number] [address] [place] [address], [place] [address] Jul, [facility] [address] [id number] [address] [place] [address], [place] [address] Jun, [facility] [address] [id number] [address] [place] [address], [place] [address] Jun, [facility] [address] [id number] [address] [place] [address], [place] [address] May, [facility] [address] [id number] [address] [place] [address], [place] [address] May, [facility] [address] [id number] [address] [place] [address], [place] [address] May, [facility] [address] [id number] [address] [place] [address], [place] [address] May, [facility] [address] [id number] [address] [place] [address], [place] [address] May, [facility] [address] [id number] [address] [place] [address], [place] [address] Apr, [facility] [address] [id number] [address] [place] [address], [place] [address] Apr, [facility] [address] [id number] [address] [place] [id number] Apr, [facility] [address] [id number] [address] [place] [address], [place] [address] Apr, [facility] [address] [id number] [address] [place] [address], [place] [address] Apr, [facility] [address] [id number] [address] [place] [address], [place] [address] Apr, [facility] [address] [id number] [address] [place] [id number] 15 Mar, 2013 [facility] [address] [id number] [address] [place] [address], [place] [address] 15 Mar, 2013 [facility] [address] [id number] [address] [place] [address], [place] [address] 14 Mar, 2013 [facility] [address] [id number] [address] [place] [address], [place] [address] 14 Mar, 2013 [facility] [address] [id number] [address] [place] [address], [place] [address] 11 Mar, 2013 [facility] [address] [id number] [address] [place] [address], [place] [address] Mar, [facility] [address] [id number] [address] [place] [address], [place] [address] 23 Feb, 2013 [facility] [address] [id number] [address] [place] [address], [place] [address] Feb, [facility] [address] [id number] [address] [place] [address], [place] [address] 04 Feb, 2013 [facility] [address] [id number] [address] [place] [address], [place] [address] Jan, [facility] [address] [id number] [address] [place] [address], [place] [address] Jan, [facility] [address] [id number] [address] [place] [address], [place] [address] Jan, [facility] [address] [id number] [address] [place] [address], [place] [address] Jan, [facility] [address] [id number] [address] [place] [address], [place] [address] Jan, [facility] [address] [id number] [address] [place] [address], [place] [address] Jan, [facility] [address] [id number] [address] [place] [address], [place] [address] Dec, [facility] [address] [id number] [address] [place] [address], [place] [address] Dec, [facility] [address] [id number] [address] [place] [address], [place] [address] Dec, [facility] [address] [id number] [address] [place] [address], [place] [address] Dec, [facility] [address] [id number] [address] [place] [address], [place] [address] Dec, [facility] [address] [id number] [address] [place] [address], [place] [address] Dec, [facility] [address] [id number] [address] [place] [address], [place] [address] Nov, [facility] [address] [id number] [address] [place] [address], [place] [address] Nov, [facility] [address] [id number] [address] [place] [address], [place] [address] Nov, [facility] [address] [id number] [address] [place] [address], [place] [address] Nov, [facility] [address] [id number] [address] [place] [address], [place] [address] Nov, [facility] [address] [id number] [address] [place] [address], [place] [address] Nov, [facility] [address] [id number] [address] [place] [address], [place] [address] October, [facility] [address] [id number] [address] [place] [address], [place] [address] October, [facility] [address] [id number] [address] [place] [address], [place] [address] October, [facility] [address] [id number] [address] [place] [address], [place] [address] October, [facility] [address] [id number] [address] [place] [address], [place] [address] October, [facility] [address] [id number] [address] [place] [address], [place] [address] 30 Sep, 2012 [facility] [address] [id number] [address] [place] [address], [place] [address] Sep, [facility] [address] [id number] [address] [place] [address], [place] [address] Sep, [facility] [address] [id number] [address] [place] [address], [place] [address] 18 Sep, 2012 [facility] [address] [id number] [address] [place] [address], [place] [address] Sep, [facility] [address] [id number] [address] [place] [address], [place] [address] 26 Aug, 2012 [facility] [address] [id number] [address] [place] [address], [place] [address] Aug, [facility] [address] [id number] [address] [place] [address], [place] [address] 04 Aug, 2012 [facility] [address] [id number] [address] [place] [address], [place] [address] Jul, [facility] [address] [id number] [address] [place] [address], [place] [address] Jul, [facility] [address] [id number] [address] [place] [address], [place] [address] Jul, [facility] [address] [id number] [address] [place] [address], [place] [address] 08 Jul, 2012 [facility] [address] [id number] [address] [place] [address], [place] [address] 06 Jul, 2012 [facility] [address] [id number] [address] [place] [address], [place] [address] 05 Jul, 2012 [facility] [address] [id number] [address] [place] [address], [place] [address] 15 Jun, 2012 [facility] [address] [id number] [address] [place] [address], [place] [address] Apr, [facility] [address] [id number] [address] [place] [address], [place] [address] Apr, [facility] [address] [id number] [address] [place] [address], [place] [address] Apr, [facility] [address] [id number] [address] [place] [address], [place] [address] Apr, [facility] [address] [id number] [address] [place] [address], [place] [address] Mar, [facility] [address] [id number] [address] [place] [address], [place] [address] Mar, [facility] [address] [id number] [address] [place] [address], [place] [address] Mar, [facility] [address] [id number] [address] [place] [address], [place] [address] Mar, [facility] [address] [id number] [address] [place] [address], [place] [address] Mar, [facility] [address] [id number] [address] [place] [address], [place] [address] Feb, [facility] [address] [id number] [address] [place] [address], [place] [address] Jan, [facility] [address] [id number] [address] [place] [address], [place] [address] Jan, [facility] [address] [id number] [address] [place] [address], [place] [address] Jan, [facility] [address] [id number] [address] [place] [address], [place] [address] Dec, [facility] [address] [id number] [address] [place] [address], [place] [address] Nov, [facility] [address] [id number] [address] [place] [address], [place] [address] Nov, [facility] [address] [id number] [address] [place] [id number] Nov, [facility] [address] [id number] [address] [place] [id number] Nov, [facility] [address] [id number] [address] [place] [phone] Nov, [facility] [address] [id number] [address] [place] [id number] October, [facility] [address] [facility] [id number] [address] [place] [phone] October, [facility] [address] [facility] [id number] [address] [place] [phone] October, [facility] [address] [facility] [id number] [address] [place] [phone] October, [facility] [address] [facility] [id number] [address] [place] [id number] October, IMMUNIZATIONS No Known Immunizations SOCIAL HISTORY Never Assessed REASON FOR VISIT PA for Chloroxazone PLAN OF CARE VITAL SIGNS MEDICATIONS Unknown [...]
--- OUTSIDE RECORDS SUMMARY | 2020-01-25 08:09 | XMS REPORT ---
Author Author Velma XIONG [facility] Address [address] [place] [address] Care Team Providers Care Control Systems Developer Name Role Phone ALANAnkita GUSTAVO Unavailable PROBLEMS Type Condition ICD9-CM Code [id number] Code Onset Dates Condition S tatus SNOMED Code Problem Hypercholesteremia E78.0 Active 1 4537400 Problem Arthritis M19.90 Active 1436757 Problem Hyperparathyroidism E21.3 Active 98946689 Problem Primary insomnia F51.01 Active 397 2004 Problem Myalgia M79.1 Active 33746645 Problem Chronic kidney disease, stage 4 (severe) N18.4 Active 845736267 Problem BPV (benign positional vertigo), bilateral H81.13 Active 886864957 Problem Corns L84 Active 863981393 Problem Mood disorder F39 Active 458906 05 Problem 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 Active 11990652 Problem 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 Active 34674806 ALLERGIES Substance Reaction Event Type Date Status Ibuprofen no anti inflammatories Drug Allergy Dec, Activ e Cymbalta nausea and vomiting Drug Allergy Dec, Active Clonidine HCl blurry vision/weakness Drug Allergy Dec, Acti ve ENCOUNTERS Encounter Location Date Diagnosis [facility] [address] [place] [id number] [address] [place] [address] Sep, [facility] [address] [facility] [id number] [address] [place] [address] Sep, [facility] [id number] [place] [address] Sep, [facility] [address] [facility] [id number] [address] [place] [address] Sep, Chronic kidney disease, stag e 4 (severe) N18.4 [facility] [address] [id number] [address] [place] [address] Sep, Chronic kidney disease, stag e 4 (severe) N18.4 [place] [address] [facility] [id number] [address] [place] [address] Aug, Labyrinthitis of left ear H8 3.02 and Arthritis M19.90 [place] [address] [place] [id number] [place] [address] Aug, [place] [address] [place] [id number] [place] [address] Jul, [place] [address] [address] Jul, Arthritis M19.90 and Labyrin thitis of left ear H83.02 [place] [address] [address] Jul, [place] [address] [place] [id number] [place] [address] Jun, [place] [address] [address] Jun, Arthritis M19.90 and Labyrin thitis of left ear H83.02 [place] [address] [place] [id number] [place] [address] Jun, Pre-op evaluation Z01.818 ; BMI 40.0-44.9, adult Z68.41 and Encounter for immunization Z23 [place] [address] [place] [id number] [place] [address] May, Arthritis M19.90 and Labyrin thitis of left ear H83.02 [place] [address] [place] [id number] [address] [place] [address] Apr, Labyrinthitis of left ear H8 3.02 [place] [address] [place] [id number] [place] [address] Apr, Arthritis M19.90 and Labyrin thitis of left ear H83.02 [facility] [address] [facility] [id number] [address] [place] [address] Mar, Arthritis M19.90 and Labyrin thitis of left ear H83.02 [facility] [address] [facility] [id number] [address] [place] [address] 05 Mar, 2017 Chronic kidney disease, stag e 4 (severe) N18.4 [facility] [address] [facility] [id number] [address] [place] [address] 06 Feb, 2017 Arthritis M19.90 and Labyrin thitis of left ear H83.02 [place] [address] [facility] [id number] [address] [place] [address] Jan, Labyrinthitis of left ear H8 3.02 and 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 [place] [address] [facility] [id number] [address] [place] [address] Dec, Arthritis M19.90 [facility] [address] [facility] [id number] [address] [place] [address] Dec, BPV (benign positional verti go), bilateral H81.13 [facility] [address] [facility] [id number] [address] [place] [address] Dec, [facility] [address] [facility] [id number] [address] [place] [address] Dec, [facility] [address] [facility] [id number] [address] [place] [address] Dec, [facility] [address] [facility] [id number] [address] [place] [address] Nov, Arthritis M19.90 and Deficie ncy of other specified B group vitamins E53.8 [facility] [address] [facility] [id number] [address] [place] [address] Nov, Arthritis M19.90 [facility] [address] [id number] [place] [address] Nov, Hyperparathyroidism E21.3 [facility] [address] [facility] [id number] [address] [place] [address] October, [facility] [address] [facility] [id number] [address] [place] [address] October, Hyperparathyroidism E21.3 [facility] [address] [facility] [id number] [address] [place] [address] October, [facility] [address] [facility] [id number] [address] [place] [address] October, Renal insufficiency N28.9 an d Hyperparathyroidism E21.3 [facility] [address] [facility] [id number] [address] [place] [address] October, [facility] [address] [facility] [id number] [address] [place] [address] October, Renal insufficiency N28.9 an d Hyperparathyroidism E21.3 [facility] [address] [facility] [id number] [address] [place] [address] October, Arthritis M19.90 [facility] [address] [facility] [id number] [address] [place] [address] Sep, [facility] [address] [facility] [id number] [address] [place] [address] Sep, Lumbar neuritis M54.16 ; Tho racic abscess J86.9 and 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 [facility] [address] [facility] [id number] [address] [place] [address] Sep, [facility] [address] [facility] [id number] [address] [place] [address] Aug, Arthritis M19.90 [facility] [address] [facility] [id number] [address] [place] [address] Aug, Hyperparathyroidism E21.3 [facility] [address] [facility] [id number] [address] [place] [address] Aug, Hyperparathyroidism E21.3 [facility] [address] [place] [id number] [place] [address] Aug, Arthritis M19.90 [facility] [address] [facility] [id number] [address] [place] [address] Jul, Mass of throat R22.1 [facility] [address] [place] [place] [id number] [place] [address] Jul, [facility] [address] [address] Jul, Arthritis M19.90 [facility] [address] [address] Jun, Arthritis M19.90 [facility] [address] [address] Jun, [facility] [address] [place] [id number] [address] [place] [address] Jun, Renal insufficiency N28.9 an d 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 [facility] [address] [place] [place] [id number] [address] [place] [address] 05 Jun, 2016 Encounter for immunization Z 23 ; Medicare welcome exam Z00.00 ; Arthritis M19.90 ; Medicare annual wellness visit, initial Z00.00 ; Medicare annual wellness visit, subsequent Z00.00 and 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 [facility] [address] [facility] [id number] [address] [place] [address] May, Renal insufficiency N28.9 an d 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 [facility] [address] [facility] [id number] [address] [place] [address] May, Renal insufficiency N28.9 [facility] [address] [facility] [id number] [address] [place] [address] May, Renal insufficiency N28.9 [facility] [address] [id number] [address] [place] [address] 14 May, 2016 [facility] [address] [id number] [address] [place] [address] 16 Apr, 2016 [facility] [address] [id number] [address] [place] [address] 16 Apr, 2016 [facility] [address] [id number] [address] [place] [address] 14 Apr, 2016 Mass of throat R22.1 [facility] [address] [id number] [address] [place] [address] Apr, [facility] [address] [id number] [address] [place] [address] 10 Apr, 2016 Mass of throat R22.1 [facility] [address] [facility] [id number] [address] [place] [address] 04 Apr, 2016 Mass of throat R22.1 [facility] [address] [id number] [address] [place] [address] Mar, [facility] [address] [facility] [id number] [address] [place] [address] Mar, [facility] [address] [facility] [id number] [address] [place] [address] Mar, [facility] [address] [facility] [id number] [address] [place] [address] 24 Mar, 2016 Parathyroid abnormality E21. 5 and Encounter for immunization Z23 [facility] [address] [id number] [address] [place] [address] 17 Mar, 2016 [facility] [address] [facility] [id number] [address] [place] [address] 11 Mar, 2016 [facility] [address] [facility] [id number] [address] [place] [address] 21 Feb, 2016 Renal insufficiency N28.9 an d Hyperparathyroidism E21.3 [facility] [address] [facility] [id number] [address] [place] [address] 19 Feb, 2016 [facility] [address] [facility] [id number] [address] [place] [address] 15 Feb, 2016 Renal insufficiency N28.9 an d Hyperparathyroidism E21.3 [facility] [address] [facility] [id number] [address] [place] [address] 14 Feb, 2016 [facility] [address] [facility] [id number] [place] [address] Feb, [facility] [address] [facility] [id number] [address] [place] [address] Feb, [facility] [address] [facility] [id number] [address] [place] [address] Jan, [facility] [address] [place] [id number] [place] [address] Jan, Arthritis M19.90 ; Lumbago w ith sciatica, right side M54.41 and Other chronic pain G89.29 [facility] [id number] [place] [address] Jan, [facility] [address] [place] [id number] [place] [address] Dec, Arthritis M19.90 ; Lumbago w ith sciatica, right side M54.41 and Other chronic pain G89.29 [facility] [address] [place] [address] Nov, Deficiency of other specifie d B group vitamins E53.8 ; Primary insomnia F51.01 ; Mood disorder F39 and Lumbago with sciatica, right side M54.41 [facility] [address] [id number] [place] [address] Nov, Hyperparathyroidism E21.3 [facility] [address] [place] [id number] [place] [address] Nov, Unspecified kidney failure N 19 and Hyperparathyroidism E21.3 [facility] [address] [facility] [id number] [address] [place] [address] October, Hyperparathyroidism E21.3 [facility] [address] [facility] [id number] [address] [place] [address] October, [facility] [address] [facility] [id number] [address] [place] [address] October, Hyperparathyroidism E21.3 [facility] [address] [id number] [place] [address] October, Hyperparathyroidism E21.3 [facility] [address] [id number] [place] [address] Sep, Hyperparathyroidism E21.3 ; Hypercholesterolemia E78.0 and Arthritis M19.90 [facility] [address] [address] Aug, [facility] [address] [address] Aug, Deficiency of other specifie d B group vitamins E53.8 [facility] [address] [facility] [id number] [address] [place] [address] Aug, [facility] [address] [id number] [place] [address] Jul, Urinary frequency R35.0 [facility] [id number] [place] [address] Jul, Urinary frequency R35.0 [facility] [address] [facility] [id number] [address] [place] [address] 17 Jul, 2015 [facility] [address] [address] Jul, [facility] [address] [id number] [place] [address] Jun, Pain in left knee M25.562 [facility] [address] [place] [id number] [place] [address] Jun, [facility] [address] [facility] [id number] [address] [place] [address] May, Swelling of left knee joint M25.462 [facility] [address] [facility] [id number] [address] [place] [address] May, [facility] [address] [id number] [place] [address] May, [facility] [address] [facility] [id number] [address] [place] [address] May, [facility] [address] [place] [id number] [place] [address] Apr, Renal insufficiency N28.9 an d Chronic kidney disease, stage 4 (severe) N18.4 [facility] [address] [id number] [place] [address] Apr, Unspecified kidney failure N 19 [facility] [address] [facility] [id number] [address] [place] [address] Apr, Unspecified kidney failure N 19 [facility] [address] [facility] [id number] [address] [place] [address] Apr, [facility] [address] [place] [id number] [place] [address] Apr, Hyperparathyroidism, unspeci fied 252.00 [facility] [address] [facility] [id number] [address] [place] [address] Apr, [facility] [address] [facility] [id number] [address] [place] [address] Mar, [facility] [address] [facility] [id number] [address] [place] [address] Mar, [facility] [address] [facility] [id number] [address] [place] [address] Mar, Hyperparathyroidism, unspeci fied 252.00 [facility] [address] [id number] [address] [place] [address] Feb, [facility] [address] [id number] [address] [place] [address] Feb, Otalgia 388.70 [facility] [address] [id number] [address] [place] [address] Feb, [facility] [address] [id number] [address] [place] [address] Feb, [facility] [address] [id number] [address] [place] [address] Jan, [facility] [address] [id number] [address] [place] [address] Jan, Hyperparathyroidism, unspeci fied 252.00 [facility] [address] [id number] [address] [place] [address] Jan, [facility] [address] [id number] [address] [place] [address] Jan, Other B-complex deficiencies 266.2 and Hyperparathyroidism, unspecified 252.00 [facility] [address] [id number] [address] [place] [address] Jan, [facility] [address] [facility] [id number] [address] [place] [phone] Jan, [facility] [address] [id number] [address] [place] [address] Jan, [facility] [address] [id number] [address] [place] [address] Dec, [facility] [address] [facility] [id number] [address] [place] [address] Dec, [facility] [address] [facility] [id number] [address] [place] [address] Dec, [facility] [address] [facility] [id number] [address] [place] [address] Nov, Routine check-up V70.0 and P re-op exam V72.84 [facility] [address] [id number] [address] [place] [address] Nov, [facility] [address] [id number] [address] [place] [address] Nov, [facility] [address] [id number] [address] [place] [address] October, [facility] [address] [id number] [address] [place] [address] October, Other B-complex deficiencies 266.2 [facility] [address] [id number] [address] [place] [address] October, [facility] [address] [id number] [address] [place] [address] Sep, [facility] [address] [id number] [address] [place] [address] Sep, [facility] [address] [id number] [address] [place] [address] Aug, [facility] [address] [id number] [address] [place] [address] Aug, [facility] [address] [id number] [address] [place] [id number] 17 Aug, 2014 [facility] [address] [id number] [address] [place] [id number] 17 Aug, 2014 [facility] [address] [id number] [address] [place] [address] Aug, [facility] [address] [id number] [address] [place] [id number] Aug, [facility] [address] [id number] [address] [place] [id number] 18 Jul, 2014 [facility] [address] [id number] [address] [place] [address] Jul, 2014 [facility] [address] [id number] [address] [place] [address], [place] [address] Jul, 2014 [facility] [address] [id number] [address] [place] [address], [place] [address] Jul, 2014 [facility] [address] [id number] [address] [place] [address], [place] [address] Jul, 2014 [facility] [address] [id number] [address] [place] [address], [place] [address] Jul, 2014 [facility] [address] [id number] [address] [place] [address], [place] [address] Jul, 2014 [facility] [address] [id number] [address] [place] [address], [place] [address] Jul, 2014 [facility] [address] [id number] [address] [place] [address], [place] [address] Jul, 2014 [facility] [address] [id number] [address] [place] [address], [place] [address] Jul, 2014 [facility] [address] [id number] [address] [place] [address], [place] [address] Jul, 2014 [facility] [address] [id number] [address] [place] [address], [place] [address] Jul, 2014 [facility] [address] [id number] [address] [place] [address], [place] [address] Jul, 2014 [facility] [address] [id number] [address] [place] [address], [place] [address] Jul, [facility] [address] [id number] [address] [place] [address], [place] [id number] Jun, [facility] [address] [id number] [address] [place] [address], [place] [address] Jun, [facility] [address] [id number] [address] [place] [address], [place] [address] Jun, [facility] [address] [id number] [address] [place] [address], [place] [address] Jun, [facility] [address] [id number] [address] [place] [address], [place] [id number] Jun, [facility] [address] [id number] [address] [place] [address], [place] [address] Jun, [facility] [address] [id number] [address] [place] [address], [place] [address] Jun, [facility] [address] [id number] [address] [place] [address], [place] [address] Jun, [facility] [address] [id number] [address] [place] [address], [place] [address] Jun, [facility] [address] [id number] [address] [place] [address], [place] [address] Jun, [facility] [address] [id number] [address] [place] [address], [place] [address] Jun, [facility] [address] [id number] [address] [place] [address], [place] [address] Jun, [facility] [address] [id number] [address] [place] [address], [place] [address] Jun, [facility] [address] [id number] [address] [place] [address], [place] [id number] Jun, [facility] [address] [id number] [address] [place] [address], [place] [address] May, [facility] [address] [id number] [address] [place] [address], [place] [address] May, [facility] [address] [id number] [address] [place] [address], [place] [address] May, [facility] [address] [id number] [address] [place] [address], [place] [address] May, [facility] [address] [id number] [address] [place] [address], [place] [address] Apr, [facility] [address] [id number] [address] [place] [address], [place] [address] Apr, [facility] [address] [id number] [address] [place] [address], [place] [address] Apr, [facility] [address] [id number] [address] [place] [address], [place] [address] Apr, [facility] [address] [id number] [address] [place] [address], [place] [address] Apr, [facility] [address] [id number] [address] [place] [address], [place] [address] Apr, [facility] [address] [id number] [address] [place] [address], [place] [address] Mar, [facility] [address] [id number] [address] [place] [address], [place] [address] Mar, [facility] [address] [id number] [address] [place] [address], [place] [address] Mar, [facility] [address] [id number] [address] [place] [address], [place] [address] Mar, [facility] [address] [id number] [address] [place] [address], [place] [address] Mar, [facility] [address] [id number] [address] [place] [address], [place] [address] Mar, [facility] [address] [id number] [address] [place] [address], [place] [address] Mar, [facility] [address] [id number] [address] [place] [address], [place] [address] Mar, [facility] [address] [id number] [address] [place] [address], [place] [address] Mar, [facility] [address] [id number] [address] [place] [address], [place] [address] Mar, [facility] [address] [id number] [address] [place] [address], [place] [address] 07 Mar, 2014 [facility] [address] [id number] [address] [place] [address], [place] [address] 07 Mar, 2014 [facility] [address] [id number] [address] [place] [address], [place] [address] Mar, [facility] [address] [id number] [address] [place] [address], [place] [address] Feb, 2013 [facility] [address] [id number] [address] [place] [address], [place] [address] 26 Feb, 2013 [facility] [address] [id number] [address] [place] [address], [place] [address] 23 Feb, 2014 [facility] [address] [id number] [address] [place] [address], [place] [address] Feb, 2013 [facility] [address] [id number] [address] [place] [address], [place] [address] 19 Feb, 2014 [facility] [address] [id number] [address] [place] [address], [place] [address] 19 Feb, 2014 [facility] [address] [id number] [address] [place] [address], [place] [address] 13 Feb, 2014 [facility] [address] [id number] [address] [place] [address], [place] [address] 13 Feb, 2014 [facility] [address] [id number] [address] [place] [address], [place] [address] 12 Feb, 2014 [facility] [address] [id number] [address] [place] [address], [place] [address] 12 Feb, 2014 [facility] [address] [id number] [address] [place] [address], [place] [address] 15 Jan, 2014 [facility] [address] [id number] [address] [place] [address], [place] [address] 15 Jan, 2014 [facility] [address] [id number] [address] [place] [address], [place] [address] Dec, [facility] [address] [id number] [facility] [place] [address] Dec, [facility] [address] [id number] [address] [place] [address], [place] [address] Dec, [facility] [address] [id number] [address] [place] [address], [place] [address] Dec, [facility] [address] [id number] [address] [place] [address], [place] [address] Dec, [facility] [address] [id number] [address] [place] [address], [place] [address] Dec, [facility] [address] [id number] [address] [place] [address], [place] [address] Nov, [facility] [address] [id number] [address] [place] [address], [place] [address] Nov, [facility] [address] [id number] [address] [place] [address], [place] [address] Nov, [facility] [address] [id number] [address] [place] [address], [place] [address] Nov, [facility] [address] [id number] [address] [place] [address], [place] [address] October, [facility] [address] [id number] [address] [place] [address], [place] [address] October, [facility] [address] [id number] [address] [place] [address], [place] [address] October, [facility] [address] [id number] [address] [place] [address], [place] [address] October, [facility] [address] [id number] [address] [place] [address], [place] [address] October, [facility] [address] [id number] [address] [place] [address], [place] [address] October, [facility] [address] [id number] [address] [place] [address], [place] [address] October, [facility] [address] [id number] [address] [place] [address], [place] [address] October, [facility] [address] [id number] [address] [place] [address], [place] [address] October, [facility] [address] [id number] [address] [place] [address], [place] [address] October, [facility] [address] [id number] [address] [place] [address], [place] [address] October, [facility] [address] [id number] [address] [place] [address], [place] [address] October, [facility] [address] [id number] [address] [place] [address], [place] [address] October, [facility] [address] [id number] [address] [place] [address], [place] [address] October, [facility] [address] [id number] [address] [place] [address], [place] [address] October, [facility] [address] [id number] [address] [place] [address], [place] [address] October, [facility] [address] [id number] [address] [place] [address], [place] [address] Sep, [facility] [address] [id number] [address] [place] [address], [place] [address] Sep, [facility] [address] [id number] [address] [place] [address], [place] [address] Sep, [facility] [address] [id number] [address] [place] [address], [place] [address] Sep, [facility] [address] [id number] [address] [place] [address], [place] [address] Sep, [facility] [address] [id number] [address] [place] [address], [place] [address] Sep, [facility] [address] [id number] [address] [place] [address], [place] [address] Aug, [facility] [address] [id number] [address] [place] [address], [place] [address] Aug, [facility] [address] [id number] [address] [place] [address], [place] [address] Aug, [facility] [address] [id number] [address] [place] [address], [place] [address] Aug, [facility] [address] [id number] [address] [place] [address], [place] [address] Aug, [facility] [address] [id number] [address] [place] [address], [place] [address] Aug, [facility] [address] [id number] [address] [place] [address], [place] [address] Jul, [facility] [address] [id number] [address] [place] [address], [place] [address] Jul, [facility] [address] [id number] [address] [place] [address], [place] [address] Jul, [facility] [address] [id number] [address] [place] [address], [place] [address] Jul, [facility] [address] [id number] [address] [place] [address], [place] [address] Jun, [facility] [address] [id number] [address] [place] [address], [place] [address] Jun, [facility] [address] [id number] [address] [place] [address], [place] [address] May, [facility] [address] [id number] [address] [place] [address], [place] [address] May, [facility] [address] [id number] [address] [place] [address], [place] [address] May, [facility] [address] [id number] [address] [place] [address], [place] [address] 09 May, 2013 [facility] [address] [id number] [address] [place] [address], [place] [address] May, [facility] [address] [id number] [address] [place] [address], [place] [address] Apr, [facility] [address] [id number] [address] [place] [address], [place] [address] Apr, [facility] [address] [id number] [address] [place] [address], [place] [address] Apr, [facility] [address] [id number] [address] [place] [address], [place] [address] Apr, [facility] [address] [id number] [address] [place] [address], [place] [address] Apr, [facility] [address] [id number] [address] [place] [address], [place] [address] Apr, [facility] [address] [id number] [address] [place] [address], [place] [address] 15 Mar, 2013 [facility] [address] [id number] [address] [place] [address], [place] [address] 15 Mar, 2013 [facility] [address] [id number] [address] [place] [address], [place] [address] 14 Mar, 2013 [facility] [address] [id number] [address] [place] [address], [place] [address] 14 Mar, 2013 [facility] [address] [id number] [address] [place] [address], [place] [address] 11 Mar, 2013 [facility] [address] [id number] [address] [place] [address], [place] [address] 11 Mar, 2013 [facility] [address] [id number] [address] [place] [address], [place] [address] 23 Feb, 2013 [facility] [address] [id number] [address] [place] [address], [place] [address] 19 Feb, 2013 [facility] [address] [id number] [address] [place] [address], [place] [address] Feb, [facility] [address] [id number] [address] [place] [address], [place] [address] Jan, [facility] [address] [id number] [address] [place] [address], [place] [address] Jan, [facility] [address] [id number] [address] [place] [address], [place] [address] Jan, [facility] [address] [id number] [address] [place] [address], [place] [address] Jan, [facility] [address] [id number] [address] [place] [address], [place] [address] Jan, [facility] [address] [id number] [address] [place] [address], [place] [address] Jan, [facility] [address] [id number] [address] [place] [address], [place] [address] Dec, [facility] [address] [id number] [address] [place] [address], [place] [address] Dec, [facility] [address] [id number] [address] [place] [address], [place] [address] Dec, [facility] [address] [id number] [address] [place] [address], [place] [address] Dec, [facility] [address] [id number] [address] [place] [address], [place] [address] Dec, [facility] [address] [id number] [address] [place] [address], [place] [address] Dec, [facility] [address] [id number] [address] [place] [address], [place] [address] Nov, [facility] [address] [id number] [address] [place] [address], [place] [address] Nov, [facility] [address] [id number] [address] [place] [address], [place] [address] Nov, [facility] [address] [id number] [address] [place] [address], [place] [address] Nov, [facility] [address] [id number] [address] [place] [address], [place] [address] Nov, [facility] [address] [id number] [address] [place] [address], [place] [address] Nov, [facility] [address] [id number] [address] [place] [address], [place] [address] October, [facility] [address] [id number] [address] [place] [address], [place] [address] October, [facility] [address] [id number] [address] [place] [address], [place] [address] October, [facility] [address] [id number] [address] [place] [address], [place] [address] October, [facility] [address] [id number] [address] [place] [address], [place] [address] October, [facility] [address] [id number] [address] [place] [address], [place] [address] 30 Sep, 2012 [facility] [address] [id number] [address] [place] [address], [place] [address] Sep, [facility] [address] [id number] [address] [place] [address], [place] [address] Sep, [facility] [address] [id number] [address] [place] [address], [place] [address] 18 Sep, 2012 [facility] [address] [id number] [address] [place] [address], [place] [address] Sep, [facility] [address] [id number] [address] [place] [address], [place] [address] Aug, [facility] [address] [id number] [address] [place] [address], [place] [address] Aug, [facility] [address] [id number] [address] [place] [address], [place] [address] Aug, [facility] [address] [id number] [address] [place] [address], [place] [address] Jul, 2012 [facility] [address] [id number] [address] [place] [address], [place] [address] 20 Jul, 2012 [facility] [address] [id number] [address] [place] [address], [place] [address] Jul, 2012 [facility] [address] [id number] [address] [place] [address], [place] [address] 08 Jul, 2012 [facility] [address] [id number] [address] [place] [address], [place] [address] 06 Jul, 2012 [facility] [address] [id number] [address] [place] [address], [place] [address] 05 Jul, 2012 [facility] [address] [id number] [address] [place] [address], [place] [address] 15 Jun, 2012 [facility] [address] [id number] [address] [place] [address], [place] [address] 16 Apr, 2012 [facility] [address] [id number] [address] [place] [address], [place] [address] Apr, [facility] [address] [id number] [address] [place] [address], [place] [address] Apr, [facility] [address] [id number] [address] [place] [address], [place] [address] Apr, [facility] [address] [id number] [address] [place] [address], [place] [address] Mar, [facility] [address] [id number] [address] [place] [address], [place] [address] Mar, [facility] [address] [id number] [address] [place] [address], [place] [address] Mar, [facility] [address] [id number] [address] [place] [address] [address] Mar, [facility] [address] [id number] [address] [place] [address], [place] [address] Mar, [facility] [address] [id number] [address] [place] [address], [place] [address] Feb, [facility] [address] [id number] [address] [place] [address], [place] [address] Jan, [facility] [address] [id number] [address] [place] [address], [place] [address] Jan, [facility] [address] [id number] [address] [place] [address], [place] [address] Jan, [facility] [address] [id number] [address] [place] [address], [place] [address] Dec, [facility] [address] [id number] [address] [place] [address], [place] [address] Nov, [facility] [address] [id number] [address] [place] [address], [place] [address] Nov, [facility] [address] [id number] [address] [place] [address], [place] [address] Nov, [facility] [address] [id number] [address] [place] [address], [place] [address] Nov, [facility] [address] [id number] [address] [place] [address], [place] [address] Nov, [facility] [address] [id number] [address] [place] [address], [place] [address] October, [facility] [address] [id number] [address] [place] [address], [place] [address] October, [facility] [address] [id number] [address] [place] [address], [place] [address] October, [facility] [address] [id number] [address] [place] [address], [place] [address] October, [facility] [address] [id number] [facility] [place] [address] October, IMMUNIZATIONS No Known Immunizations SOCIAL HISTORY Never Assessed REASON FOR VISIT Dizziness started around the 05 of January- Evelyn MORA PLAN OF CARE Activity Details Follow Up if not improving with PCP or reg follow up Reason: VITAL SIGNS Height 66 in 2017-01-21 Weight 254.7 lbs 2017-01-21 Temperature 98.0 degrees Fahrenheit 2017-01-21 Heart Rate 84 bpm 2017-01-21 Respiratory Rate 20 2017-01-21 BMI 41.11 kg/m2 2017-01-21 Blood pressure systolic 122 mmHg 2017-01-21 Blood pressure diastolic 82 mmHg 2017-01-21 MEDICATIONS Medication Instructions Dosage Frequency Start Date End Date Duration S tatus Levothyroxine Sodium 50 mcg Orally Once a day 1 tablet on an empty stomach in the morning 24h 30 days Active Calcium 500 mg Orally 3 times a day 1 tablet 8h Active Multivital Jamul Acti ve PredniSONE 20 mg Orally Once a day 1 tablet 24h Dec, Dec, 05 days Active Bicarb-Mg (CRRT) 10 by oral route 2 times a day 2 tablets 12h Active Meclizine HCl 25 MG Orally Once a day prn 1 tablet as needed Dec, 07 days Active Chlorzoxazone 500 MG 1 tablet 12h Ac tive Hydrocodone-Acetaminophen 10-325 MG Orally 3 times a day 1 tablet a s needed 8h Nov, 28 days Active Omeprazole 40 mg 1 capsule 24h 30 Activ e Lisinopril 10 mg Orally Once a day 1/2 tablet 24h Active Zolpidem Tartrate 10 MG Orally Once a day 1 tablet at bedtime 24h 28 days Active Cetirizine HCl Active RESULTS No Results PROCEDURES Procedure Date Ordered Result Body Site [facility] VISIT ESTABLISHED PATIENT January 21, 2017 INSTRUCTIONS MEDICATIONS ADMINISTERED No Known Medications MEDICAL (GENERAL) HISTORY Type Description Date Medical History hypertension Medical History acid reflux Medical History osteoporosis Medical History Arthritis Medical History fibromyalgia Surgical History cholecystectomy s Surgical History gastric bypass Surgical History orthopedic surgery-left and right foot Surgical History arthroscopic knee surgery-left Surgical History Left knee meniscus repair 2009 Surgical History half of thyroid removed Jun 2016 Hospitalization History Hospitalization for surgery only
--- OUTSIDE RECORDS SUMMARY | 2020-01-25 08:10 | XMS REPORT ---
Author Author Velma CORDERO Organization [facility] Address [address] [place] [address] Care Team Providers Care [facility] Programmer Name Role Phone STEPHAN CORDERO Unavailable PROBLEMS Type Condition ICD9-CM Code MRS24-YC Code Onset Dates Condition S tatus SNOMED Code Problem Hypercholesteremia E78.0 Active 1 1618208 Problem Arthritis M19.90 Active 2414340 Problem Hyperparathyroidism E21.3 Active 37852248 Problem Primary insomnia F51.01 Active 397 2004 Problem Myalgia M79.1 Active 64930841 Problem Chronic kidney disease, stage 4 (severe) N18.4 Active 050402015 Problem BPV (benign positional vertigo), bilateral H81.13 Active 681898992 Problem Corns L84 Active 870009467 Problem Mood disorder F39 Active 812402 05 Problem 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 Active 80220965 Problem 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 Active 14039950 ALLERGIES No Information ENCOUNTERS Encounter Location Date Diagnosis [place] [address] [place] [id number] [place] [address] October, Labyrinthitis of left ear H8 3.02 and Arthritis M19.90 [place] [address] [place] [id number] [place] [address] Sep, BPV (benign positional verti go), bilateral H81.13 ; Dysfunction of left eustachian tube H69.82 and BMI 40.0-44.9, adult Z68.41 [place] [address] [place] [id number] [place] [address] Sep, Labyrinthitis of left ear H8 3.02 and Arthritis M19.90 [place] [address] [place] [id number] [place] [address] Sep, [place] [address] [place] [id number] [place] [address] Sep, [place] [address] [place] [id number] [place] [address] Sep, Chronic kidney disease, stag e 4 (severe) N18.4 [facility] [address] [place] [id number] [place] [address] Sep, Chronic kidney disease, stag e 4 (severe) N18.4 [place] [address] [facility] [id number] [address] [place] [address] Aug, Labyrinthitis of left ear H8 3.02 and Arthritis M19.90 [place] [address] [place] [id number] [place] [address] Aug, [place] [address] [place] [id number] [place] [address] Jul, [place] [address] [place] [id number] [place] [address] Jul, Arthritis M19.90 and Labyrin thitis of left ear H83.02 [place] [address] [address] Jul, [place] [address] [place] [id number] [address] [place] [address] Jun, [place] [address] [address] Jun, Arthritis M19.90 and Labyrin thitis of left ear H83.02 [place] [address] [address] Jun, Pre-op evaluation Z01.818 ; BMI 40.0-44.9, adult Z68.41 and Encounter for immunization Z23 [place] [address] [place] [id number] [place] [address] May, Arthritis M19.90 and Labyrin thitis of left ear H83.02 [facility] [address] [facility] [id number] [address] [place] [address] Apr, Labyrinthitis of left ear H8 3.02 [facility] [address] [facility] [id number] [address] [place] [address] Apr, Arthritis M19.90 and Labyrin thitis of left ear H83.02 [facility] [address] [facility] [id number] [address] [place] [address] Mar, Arthritis M19.90 and Labyrin thitis of left ear H83.02 [place] [address] [place] [id number] [place] [address] 05 Mar, 2017 Chronic kidney disease, stag e 4 (severe) N18.4 [place] [address] [place] [id number] [place] [address] Feb, Arthritis M19.90 and Labyrin thitis of left ear H83.02 [facility] [address] [place] [id number] [place] [address] Jan, Labyrinthitis of left ear H8 3.02 and 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 [place] [address] [place] [id number] [place] [address] Dec, Arthritis M19.90 [facility] [address] [place] [id number] [place] [address] Dec, BPV (benign positional verti go), bilateral H81.13 [place] [address] [place] [id number] [place] [address] Dec, [place] [address] [place] [id number] [place] [address] Dec, [facility] [address] [place] [id number] [address] [place] [address] Dec, [place] [address] [place] [id number] [place] [address] Nov, Arthritis M19.90 and Deficie ncy of other specified B group vitamins E53.8 [facility] [address] [facility] [id number] [address] [place] [address] Nov, Arthritis M19.90 [facility] [address] [facility] [id number] [address] [place] [address] Nov, Hyperparathyroidism E21.3 [facility] [address] [facility] [id number] [address] [place] [address] October, [facility] [address] [facility] [id number] [address] [place] [address] October, Hyperparathyroidism E21.3 [facility] [address] [facility] [id number] [address] [place] [address] October, [facility] [address] [place] [id number] [place] [address] October, Renal insufficiency N28.9 an d Hyperparathyroidism E21.3 [facility] [address] [facility] [id number] [address] [place] [address] October, [facility] [address] [place] [id number] [address] [place] [address] October, Renal insufficiency N28.9 an d Hyperparathyroidism E21.3 [facility] [address] [facility] [id number] [address] [place] [address] October, Arthritis M19.90 [facility] [address] [facility] [id number] [address] [place] [address] Sep, [facility] [address] [place] [id number] [address] [place] [address] Sep, Lumbar neuritis M54.16 ; Tho racic abscess J86.9 and Deficiency of other specified B group vitamins E53.8 [facility] [address] [facility] [id number] [address] [place] [address] Sep, [facility] [address] [facility] [id number] [address] [place] [address] Aug, Arthritis M19.90 [facility] [address] [facility] [id number] [address] [place] [address] Aug, Hyperparathyroidism E21.3 [facility] [address] [facility] [id number] [address] [place] [address] Aug, Hyperparathyroidism E21.3 [facility] [address] [facility] [id number] [address] [place] [address] Aug, Arthritis M19.90 [facility] [address] [place] [id number] [place] [address] Jul, Mass of throat R22.1 [facility] [address] [place] [id number] [address] [place] [address] Jul, [facility] [address] [place] [id number] [address] [place] [address] Jul, Arthritis M19.90 [facility] [address] [facility] [id number] [address] [place] [address] Jun, Arthritis M19.90 [facility] [address] [facility] [id number] [address] [place] [address] Jun, [facility] [address] [facility] [id number] [address] [place] [address] Jun, Renal insufficiency N28.9 an d Parathyroid 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 [facility] [address] [facility] [id number] [address] [place] [address] 05 Jun, 2016 Medicare welcome exam Z00.00 ; Encounter for immunization Z23 ; Arthritis M19.90 ; Medicare annual wellness visit, initial Z00.00 ; Medicare annual wellness visit, subsequent Z00.00 and 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 [facility] [address] [facility] [id number] [address] [place] [address] May, Renal insufficiency N28.9 an d Parathyroid 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 [facility] [address] [facility] [id number] [address] [place] [address] May, Renal insufficiency N28.9 [facility] [address] [facility] [id number] [address] [place] [address] 16 May, 2016 Renal insufficiency N28.9 [facility] [address] [facility] [id number] [address] [place] [address] 14 May, 2016 [facility] [address] [facility] [id number] [address] [place] [address] 16 Apr, 2016 [facility] [address] [facility] [id number] [address] [place] [address] 16 Apr, 2016 [facility] [address] [facility] [id number] [address] [place] [address] 14 Apr, 2016 Mass of throat R22.1 [facility] [address] [facility] [id number] [address] [place] [address] 10 Apr, 2016 [facility] [address] [facility] [id number] [address] [place] [address] 10 Apr, 2016 Mass of throat R22.1 [facility] [address] [facility] [id number] [address] [place] [address] 04 Apr, 2016 Mass of throat R22.1 [facility] [address] [facility] [id number] [address] [place] [address] Mar, [facility] [address] [facility] [id number] [address] [place] [address] Mar, [facility] [address] [facility] [id number] [address] [place] [address] Mar, [facility] [address] [place] [id number] [address] [place] [address] Mar, Parathyroid abnormality E21. 5 and Encounter for immunization Z23 [facility] [address] [facility] [id number] [address] [place] [address] Mar, [facility] [address] [id number] [address] [place] [address] Mar, [facility] [address] [id number] [address] [place] [address] 21 Feb, 2016 Renal insufficiency N28.9 an d Hyperparathyroidism E21.3 [facility] [address] [id number] [address] [place] [phone] 19 Feb, 2016 [facility] [address] [id number] [address] [place] [address] 15 Feb, 2016 Renal insufficiency N28.9 an d Hyperparathyroidism E21.3 [facility] [address] [id number] [address] [place] [address] 14 Feb, 2016 [facility] [address] [id number] [address] [place] [address] 12 Feb, 2016 [facility] [address] [facility] [id number] [address] [place] [phone] 09 Feb, 2016 [facility] [address] [id number] [address] [place] [address] Jan, [facility] [address] [facility] [id number] [address] [place] [address] Jan, Arthritis M19.90 ; Lumbago w ith sciatica, right side M54.41 and Other chronic pain G89.29 [facility] [address] [facility] [id number] [address] [place] [address] Jan, [facility] [address] [id number] [address] [place] [address] Dec, Arthritis M19.90 ; Lumbago w ith sciatica, right side M54.41 and Other chronic pain G89.29 [facility] [address] [id number] [address] [place] [address] Nov, Deficiency of other specifie d B group vitamins E53.8 ; Primary insomnia F51.01 ; Mood disorder F39 and Lumbago with sciatica, right side M54.41 [facility] [address] [place] [id number] [address] [place] [address] Nov, Hyperparathyroidism E21.3 [facility] [address] [place] [id number] [place] [address] Nov, Unspecified kidney failure N 19 and Hyperparathyroidism E21.3 [facility] [address] [address] October, Hyperparathyroidism E21.3 [facility] [address] [address] October, [facility] [address] [address] October, Hyperparathyroidism E21.3 [facility] [address] [address] October, Hyperparathyroidism E21.3 [facility] [address] [address] Sep, Hyperparathyroidism E21.3 ; Hypercholesterolemia E78.0 and Arthritis M19.90 [facility] [address] [address] Aug, [facility] [address] [address] Aug, Deficiency of other specifie d B group vitamins E53.8 [facility] [address] [address] Aug, [facility] [address] [address] Jul, Urinary frequency R35.0 [facility] [address] [address] Jul, Urinary frequency R35.0 [facility] [address] [place] [id number] [place] [address] Jul, [facility] [address] [id number] [address] [place] [address] Jul, [facility] [address] [facility] [id number] [address] [place] [address] Jun, Pain in left knee M25.562 [facility] [address] [id number] [address] [place] [address] Jun, [facility] [address] [id number] [address] [place] [address] May, Swelling of left knee joint M25.462 [facility] [address] [id number] [address] [place] [address] May, [facility] [address] [facility] [id number] [address] [place] [address] May, [facility] [address] [facility] [id number] [address] [place] [address] May, [facility] [address] [facility] [id number] [address] [place] [address] Apr, Renal insufficiency N28.9 an d Chronic kidney disease, stage 4 (severe) N18.4 [facility] [address] [facility] [id number] [address] [place] [address] Apr, Unspecified kidney failure N 19 [facility] [address] [facility] [id number] [address] [place] [address] Apr, Unspecified kidney failure N 19 [facility] [address] [facility] [id number] [address] [place] [address] Apr, [facility] [address] [facility] [id number] [address] [place] [address] Apr, Hyperparathyroidism, unspeci fied 252.00 [facility] [address] [facility] [id number] [address] [place] [address] Apr, [facility] [address] [facility] [id number] [address] [place] [address] Mar, [facility] [address] [id number] [address] [place] [address] Mar, [facility] [address] [id number] [address] [place] [address] Mar, Hyperparathyroidism, unspeci fied 252.00 [facility] [address] [facility] [id number] [address] [place] [address] Feb, [facility] [address] [id number] [address] [place] [address] Feb, Otalgia 388.70 [facility] [address] [facility] [id number] [address] [place] [address] Feb, [facility] [address] [facility] [id number] [address] [place] [address] Feb, [facility] [address] [facility] [id number] [address] [place] [address] Jan, [facility] [address] [id number] [address] [place] [address] Jan, Hyperparathyroidism, unspeci fied 252.00 [facility] [address] [facility] [id number] [address] [place] [address] Jan, [facility] [address] [facility] [id number] [address] [place] [address] Jan, Other B-complex deficiencies 266.2 and Hyperparathyroidism, unspecified 252.00 [facility] [address] [id number] [address] [place] [address] Jan, [facility] [address] [id number] [address] [place] [address] Jan, [facility] [address] [facility] [id number] [address] [place] [address] Jan, [facility] [address] [facility] [id number] [address] [place] [address] Dec, [facility] [address] [id number] [address] [place] [id number] 07 Dec, 2014 [facility] [address] [id number] [address] [place] [address] Dec, [facility] [address] [id number] [address] [place] [address] 15 Nov, 2014 Routine check-up V70.0 and P re-op exam V72.84 [facility] [address] [id number] [address] [place] [address] Nov, [facility] [address] [id number] [address] [place] [address] Nov, [facility] [address] [id number] [address] [place] [address] October, [facility] [address] [id number] [address] [place] [address] October, Other B-complex deficiencies 266.2 [facility] [address] [id number] [address] [place] [address] October, [facility] [address] [id number] [address] [place] [address] 14 Sep, 2014 [facility] [address] [id number] [address] [place] [address] Sep, [facility] [address] [id number] [address] [place] [address] Aug, [facility] [address] [id number] [address] [place] [address] 20 Aug, 2014 [facility] [address] [id number] [address] [place] [address] 17 Aug, 2014 [facility] [address] [id number] [address] [place] [address] 17 Aug, 2014 [facility] [address] [id number] [address] [place] [id number] 11 Aug, 2014 [facility] [address] [id number] [address] [place] [address], [place] [address] Aug, [facility] [address] [id number] [address] [place] [address], [place] [address] Jul, 2014 [facility] [address] [id number] [address] [place] [address], [place] [address] Jul, 2014 [facility] [address] [id number] [address] [place] [address], [place] [address] Jul, 2014 [facility] [address] [id number] [address] [place] [address], [place] [address] Jul, 2014 [facility] [address] [id number] [address] [place] [address], [place] [address] Jul, 2014 [facility] [address] [id number] [address] [place] [address], [place] [address] Jul, 2014 [facility] [address] [id number] [address] [place] [address], [place] [address] Jul, 2014 [facility] [address] [id number] [address] [place] [address], [place] [address] Jul, 2014 [facility] [address] [id number] [address] [place] [address], [place] [address] Jul, 2014 [facility] [address] [id number] [address] [place] [address], [place] [address] Jul, 2014 [facility] [address] [id number] [address] [place] [address], [place] [address] Jul, 2014 [facility] [address] [id number] [address] [place] [address], [place] [address] Jul, 2014 [facility] [address] [id number] [address] [place] [address], [place] [address] Jul, 2014 [facility] [address] [id number] [address] [place] [address], [place] [address] Jul, 2014 [facility] [address] [id number] [address] [place] [address], [place] [address] Jun, [facility] [address] [id number] [address] [place] [address], [place] [address] Jun, [facility] [address] [id number] [address] [place] [address], [place] [address] Jun, [facility] [address] [id number] [address] [place] [address], [place] [address] Jun, [facility] [address] [id number] [address] [place] [address], [place] [address] Jun, [facility] [address] [id number] [address] [place] [address], [place] [address] Jun, [facility] [address] [id number] [address] [place] [address], [place] [address] Jun, [facility] [address] [id number] [address] [place] [address], [place] [address] Jun, [facility] [address] [id number] [address] [place] [address], [place] [address] Jun, [facility] [address] [id number] [address] [place] [address], [place] [address] Jun, [facility] [address] [id number] [address] [place] [address], [place] [address] Jun, [facility] [address] [id number] [address] [place] [address], [place] [address] Jun, [facility] [address] [id number] [address] [place] [address], [place] [address] Jun, [facility] [address] [id number] [address] [place] [address], [place] [address] Jun, [facility] [address] [id number] [address] [place] [address], [place] [address] 15 May, 2014 [facility] [address] [id number] [address] [place] [address], [place] [address] May, [facility] [address] [id number] [address] [place] [address], [place] [address] May, [facility] [address] [id number] [address] [place] [address], [place] [address] May, [facility] [address] [id number] [address] [place] [address], [place] [address] Apr, [facility] [address] [id number] [address] [place] [address], [place] [address] Apr, [facility] [address] [id number] [address] [place] [address], [place] [address] Apr, [facility] [address] [id number] [address] [place] [address], [place] [address] Apr, [facility] [address] [id number] [address] [place] [address], [place] [address] Apr, [facility] [address] [id number] [address] [place] [address], [place] [address] Apr, [facility] [address] [id number] [address] [place] [address], [place] [address] Mar, [facility] [address] [id number] [address] [place] [address], [place] [address] Mar, [facility] [address] [id number] [address] [place] [address], [place] [address] Mar, [facility] [address] [id number] [address] [place] [address] Mar, [facility] [address] [id number] [address] [place] [address], [place] [address] Mar, [facility] [address] [id number] [address] [place] [address], [place] [address] Mar, [facility] [address] [id number] [address] [place] [address], [place] [address] Mar, [facility] [address] [id number] [address] [place] [address], [place] [address] 13 Mar, 2013 [facility] [address] [id number] [address] [place] [address], [place] [address] 07 Mar, 2013 [facility] [facility] [address] [id number] [address] [place] [address], [place] [address] 07 Mar, 2013 [facility] [address] [id number] [address] [place] [address], [place] [address] Mar, 2013 [facility] [address] [id number] [address] [place] [address], [place] [address] 07 Mar, 2013 [facility] [address] [id number] [address] [place] [address], [place] [address] Mar, [facility] [address] [id number] [address] [place] [address], [place] [address] 26 Feb, 2013 [facility] [address] [id number] [address] [place] [address], [place] [address] 26 Feb, 2013 [facility] [address] [id number] [address] [place] [address], [place] [address] 23 Feb, 2013 [facility] [address] [id number] [address] [place] [address], [place] [address] 23 Feb, 2013 [facility] [address] [id number] [address] [place] [address], [place] [address] 19 Feb, 2013 [facility] [address] [id number] [address] [place] [address], [place] [address] 19 Feb, 2013 [facility] [address] [id number] [address] [place] [address], [place] [address] 13 Sep, 2013 [facility] [address] [id number] [address] [place] [address], [place] [address] 13 Feb, 2013 [facility] [address] [id number] [address] [place] [address], [place] [address] 12 Feb, 2013 [facility] [address] [id number] [address] [place] [address], [place] [address] Feb, [facility] [address] [id number] [address] [place] [address], [place] [address] Jan, [facility] [address] [id number] [address] [place] [address], [place] [address] Jan, [facility] [address] [id number] [address] [place] [address], [place] [address] Dec, [facility] [address] [id number] [address] [place] [address], [place] [address] Dec, [facility] [address] [id number] [address] [place] [address], [place] [address] Dec, [facility] [address] [id number] [address] [place] [address], [place] [address] Dec, [facility] [address] [id number] [address] [place] [address], [place] [address] Dec, [facility] [address] [id number] [address] [place] [address], [place] [address] Dec, [facility] [address] [id number] [address] [place] [address], [place] [address] Nov, [facility] [address] [id number] [address] [place] [address], [place] [address] Nov, [facility] [address] [id number] [address] [place] [address], [place] [address] Nov, [facility] [address] [id number] [address] [place] [address], [place] [address] Nov, [facility] [address] [id number] [address] [place] [address], [place] [address] October, [facility] [address] [id number] [address] [place] [address], [place] [address] October, [facility] [address] [id number] [address] [place] [address], [place] [address] October, [facility] [address] [id number] [address] [place] [address], [place] [address] October, [facility] [address] [id number] [facility] [place] [address] October, [facility] [address] [id number] [address] [place] [address], [place] [address] October, [facility] [address] [id number] [address] [place] [address], [place] [address] October, [facility] [address] [id number] [address] [place] [address], [place] [address] October, [facility] [address] [id number] [address] [place] [address], [place] [address] October, [facility] [address] [id number] [address] [place] [address], [place] [address] October, [facility] [address] [id number] [address] [place] [address], [place] [address] October, [facility] [address] [id number] [address] [place] [address], [place] [address] October, [facility] [address] [id number] [address] [place] [address], [place] [address] October, [facility] [address] [id number] [address] [place] [address], [place] [address] October, [facility] [address] [id number] [address] [place] [address], [place] [address] October, [facility] [address] [id number] [address] [place] [address], [place] [address] October, [facility] [address] [id number] [address] [place] [address], [place] [address] Sep, [facility] [address] [id number] [address] [place] [address], [place] [address] Sep, [facility] [address] [id number] [address] [place] [address], [place] [address] Sep, [facility] [address] [id number] [facility] [place] [address] 14 Sep, 2013 [facility] [address] [id number] [address] [place] [address], [place] [address] Sep, [facility] [address] [id number] [address] [place] [address], [place] [address] Sep, [facility] [address] [id number] [address] [place] [address], [place] [address] Aug, [facility] [address] [id number] [address] [place] [address], [place] [address] Aug, [facility] [address] [id number] [address] [place] [address], [place] [address] Aug, [facility] [address] [id number] [address] [place] [address], [place] [address] Aug, [facility] [address] [id number] [address] [place] [address], [place] [address] Aug, [facility] [address] [id number] [address] [place] [address], [place] [address] Aug, [facility] [address] [id number] [address] [place] [address], [place] [address] Jul, [facility] [address] [id number] [address] [place] [address], [place] [address] Jul, [facility] [address] [id number] [address] [place] [address], [place] [address] Jul, [facility] [address] [id number] [address] [place] [address], [place] [address] Jul, [facility] [address] [id number] [address] [place] [address], [place] [address] Jun, [facility] [address] [id number] [address] [place] [address], [place] [address] Jun, [facility] [address] [id number] [address] [place] [address], [place] [address] May, [facility] [address] [id number] [address] [place] [address], [place] [address] May, [facility] [address] [id number] [address] [place] [address], [place] [address] May, [facility] [address] [id number] [address] [place] [address], [place] [address] May, [facility] [address] [id number] [address] [place] [address] May, [facility] [address] [id number] [address] [place] [address], [place] [address] Apr, [facility] [address] [id number] [address] [place] [address] Apr, [facility] [address] [id number] [address] [place] [address], [place] [address] Apr, [facility] [address] [id number] [address] [place] [address] Apr, [facility] [address] [id number] [address] [place] [address] 04 Apr, 2013 [facility] [address] [id number] [address] [place] [address] 04 Apr, 2013 [facility] [address] [id number] [address] [place] [address] 15 Mar, 2013 [facility] [address] [id number] [address] [place] [address] 15 Mar, 2013 [facility] [address] [id number] [address] [place] [address], [place] [address] 14 Mar, 2013 [facility] [address] [id number] [address] [place] [address] 14 Mar, 2013 [facility] [address] [id number] [address] [place] [address] 11 Mar, 2013 [facility] [address] [id number] [address] [place] [address], [place] [address] Mar, [facility] [address] [id number] [address] [place] [address], [place] [address] Feb, [facility] [address] [id number] [address] [place] [address], [place] [address] Feb, [facility] [address] [id number] [address] [place] [address], [place] [address] Feb, [facility] [address] [id number] [address] [place] [address], [place] [address] Jan, [facility] [address] [id number] [address] [place] [address], [place] [address] Jan, [facility] [address] [id number] [address] [place] [address], [place] [address] Jan, [facility] [address] [id number] [address] [place] [address], [place] [address] Jan, [facility] [address] [id number] [address] [place] [address], [place] [address] Jan, [facility] [address] [id number] [address] [place] [address], [place] [address] Jan, [facility] [address] [id number] [address] [place] [address], [place] [address] Dec, [facility] [address] [id number] [address] [place] [address], [place] [address] Dec, [facility] [address] [id number] [address] [place] [address], [place] [address] Dec, [facility] [address] [id number] [address] [place] [address], [place] [address] Dec, [facility] [address] [id number] [address] [place] [address], [place] [address] Dec, [facility] [address] [id number] [address] [place] [address], [place] [address] Dec, [facility] [address] [id number] [address] [place] [address], [place] [address] 26 Nov, 2012 [facility] [address] [id number] [address] [place] [address], [place] [address] Nov, [facility] [address] [id number] [address] [place] [address], [place] [address] 18 Nov, 2012 [facility] [address] [id number] [address] [place] [address], [place] [address] Nov, [facility] [address] [id number] [address] [place] [address], [place] [address] Nov, [facility] [address] [id number] [address] [place] [address], [place] [address] Nov, [facility] [address] [id number] [address] [place] [address], [place] [address] October, [facility] [address] [id number] [address] [place] [address], [place] [address] October, [facility] [address] [id number] [address] [place] [address], [place] [address] October, [facility] [address] [id number] [address] [place] [address], [place] [address] October, [facility] [address] [id number] [address] [place] [address], [place] [address] October, [facility] [address] [id number] [address] [place] [address], [place] [address] 30 Sep, 2012 [facility] [address] [id number] [address] [place] [address], [place] [address] Sep, [facility] [address] [id number] [address] [place] [address], [place] [address] Sep, [facility] [address] [id number] [address] [place] [address], [place] [address] 18 Sep, 2012 [facility] [address] [id number] [address] [place] [address], [place] [address] Sep, [facility] [address] [id number] [address] [place] [address], [place] [address] Aug, [facility] [address] [id number] [address] [place] [address], [place] [address] 07 Aug, 2012 [facility] [address] [id number] [address] [place] [address], [place] [address] Aug, [facility] [address] [id number] [address] [place] [address], [place] [address] 21 Jul, 2012 [facility] [address] [id number] [address] [place] [address], [place] [address] 20 Jul, 2012 [facility] [address] [id number] [address] [place] [address], [place] [address] 11 Jul, 2012 [facility] [address] [id number] [address] [place] [address], [place] [address] 08 Jul, 2012 [facility] [address] [id number] [address] [place] [address], [place] [address] 06 Jul, 2012 [facility] [address] [id number] [address] [place] [address], [place] [address] 05 Jul, 2012 [facility] [address] [id number] [address] [place] [address], [place] [address] 15 Jun, 2012 [facility] [address] [id number] [address] [place] [address], [place] [address] 16 Apr, 2012 [facility] [address] [id number] [address] [place] [address] 16 Apr, 2012 [facility] [address] [id number] [address] [place] [address] Apr, [facility] [address] [id number] [address] [place] [address], [place] [address] Apr, [facility] [address] [id number] [address] [place] [address] Mar, [facility] [address] [id number] [address] [place] [address], [place] [address] Mar, [facility] [address] [id number] [address] [place] [address], [place] [address] Mar, [facility] [address] [id number] [address] [place] [address], [place] [address] Mar, [facility] [address] [id number] [address] [place] [address], [place] [address] Mar, [facility] [address] [id number] [address] [place] [address], [place] [address] Feb, [facility] [address] [id number] [address] [place] [address], [place] [address] Jan, [facility] [address] [id number] [address] [place] [address], [place] [address] Jan, [facility] [address] [id number] [address] [place] [address], [place] [address] Jan, [facility] [address] [id number] [address] [place] [address], [place] [address] Dec, [facility] [address] [id number] [address] [place] [address], [place] [address] Nov, [facility] [address] [id number] [address] [place] [address], [place] [address] Nov, [facility] [address] [id number] [address] [place] [address], [place] [address] Nov, [facility] [address] [id number] [address] [place] [address], [place] [address] Nov, [facility] [address] [id number] [address] [place] [address], [place] [address] Nov, [facility] [address] [id number] [address] [place] [address], [place] [address] October, [facility] [address] [id number] [address] [address] October, [facility] [address] [facility] [id number] [address] [place] [address] October, [facility] [address] [facility] [id number] [address] [place] [address] October, [facility] [address] [facility] [id number] [address] [place] [address] October, IMMUNIZATIONS No Known Immunizations SOCIAL HISTORY Never Assessed REASON FOR VISIT Controlled Med Refill 05/05/17 PLAN OF CARE VITAL SIGNS MEDICATIONS Medication [...]
--- OUTSIDE RECORDS SUMMARY | 2020-01-25 08:10 | XMS REPORT ---
Author Author Velma CORDERO Organization [facility] Address [address] [place] [address] Care Team Providers Care Administrative Support Assoc Name Role Phone STEPHAN CORDERO Unavailable PROBLEMS Type Condition ICD9-CM Code [id number]-NA Code Onset Dates Condition S tatus SNOMED Code Problem Hypercholesteremia E78.0 Active 1 3251729 Problem Arthritis M19.90 Active 6531294 Problem Hyperparathyroidism E21.3 Active 66814682 Problem Primary insomnia F51.01 Active 397 2004 Problem Myalgia M79.1 Active 58692591 Problem Chronic kidney disease, stage 4 (severe) N18.4 Active 635010878 Problem BPV (benign positional vertigo), bilateral H81.13 Active 288734510 Problem Corns L84 Active 524840902 Problem Mood disorder F39 Active 129955 05 Problem 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 Active 79939745 Problem 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 Active 27312755 ALLERGIES Substance Reaction Event Type Date Status Ibuprofen no anti inflammatories Drug Allergy Apr, Activ e Cymbalta nausea and vomiting Drug Allergy Apr, Active Clonidine HCl blurry vision/weakness Drug Allergy Apr, Acti ve ENCOUNTERS Encounter Location Date Diagnosis [place] [address] [place] [id number] [address] [place] [address] Nov, [place] [address] [facility] [id number] [address] [place] [address] October, Labyrinthitis of left ear H8 3.02 and Arthritis M19.90 [place] [address] [facility] [id number] [address] [place] [address] 24 Sep, 2017 BPV (benign positional verti go), bilateral H81.13 ; Dysfunction of left eustachian tube H69.82 and BMI 40.0-44.9, adult Z68.41 [facility] [address] [id number] [address] [place] [address] Sep, Labyrinthitis of left ear H8 3.02 and Arthritis M19.90 [facility] [address] [id number] [address] [place] [address] Sep, [facility] [address] [id number] [address] [place] [address] Sep, [facility] [address] [id number] [address] [place] [address] Sep, Chronic kidney disease, stag e 4 (severe) N18.4 [facility] [address] [id number] [address] [place] [address] Sep, Chronic kidney disease, stag e 4 (severe) N18.4 [facility] [address] [id number] [address] [place] [address] Aug, Labyrinthitis of left ear H8 3.02 and Arthritis M19.90 [facility] [address] [id number] [address] [place] [address] Aug, [facility] [address] [id number] [address] [place] [address] Jul, [facility] [address] [id number] [address] [place] [address] Jul, Arthritis M19.90 and Labyrin thitis of left ear H83.02 [facility] [address] [id number] [address] [place] [address] Jul, [facility] [address] [id number] [address] [place] [address] Jun, [facility] [address] [id number] [address] [place] [address] Jun, Arthritis M19.90 and Labyrin thitis of left ear H83.02 [facility] [address] [address] Jun, Pre-op evaluation Z01.818 ; BMI 40.0-44.9, adult Z68.41 and Encounter for immunization Z23 [place] [address] [address] May, Arthritis M19.90 and Labyrin thitis of left ear H83.02 [place] [address] [address] Apr, Labyrinthitis of left ear H8 3.02 [place] [address] [address] Apr, Arthritis M19.90 and Labyrin thitis of left ear H83.02 [place] [address] [address] Mar, Arthritis M19.90 and Labyrin thitis of left ear H83.02 [place] [address] [address] Mar, Chronic kidney disease, stag e 4 (severe) N18.4 [place] [address] [address] Feb, Arthritis M19.90 and Labyrin thitis of left ear H83.02 [place] [address] [address] Jan, Labyrinthitis of left ear H8 3.02 and 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 [place] [address] [address] Dec, Arthritis M19.90 [place] [address] [address] Dec, BPV (benign positional verti go), bilateral H81.[address] [address] Dec, [facility] [address] [facility] [id number] [address] [place] [address] Dec, [facility] [address] [id number] [address] [place] [address] Dec, [facility] [address] [facility] [id number] [address] [place] [address] Nov, Arthritis M19.90 and Deficie ncy of other specified B group vitamins E53.8 [facility] [address] [id number] [address] [place] [address] Nov, Arthritis M19.90 [facility] [address] [facility] [id number] [address] [place] [address] Nov, Hyperparathyroidism E21.3 [facility] [address] [facility] [id number] [address] [place] [address] October, [facility] [address] [facility] [id number] [address] [place] [address] October, Hyperparathyroidism E21.3 [facility] [address] [facility] [id number] [address] [place] [address] October, [facility] [address] [facility] [id number] [address] [place] [address] October, Renal insufficiency N28.9 an d Hyperparathyroidism E21.3 [facility] [address] [facility] [id number] [address] [place] [address] October, [facility] [address] [facility] [id number] [address] [place] [address] October, Renal insufficiency N28.9 an d Hyperparathyroidism E21.3 [facility] [address] [facility] [id number] [address] [place] [address] October, Arthritis M19.90 [facility] [address] [facility] [id number] [address] [place] [address] Sep, [facility] [address] [place] [id number] [address] [place] [address] Sep, Lumbar neuritis M54.16 ; Tho racic abscess J86.9 and 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 [facility] [address] [place] [id number] [place] [address] Sep, [facility] [id number] [place] [address] Aug, Arthritis M19.90 [facility] [address] [address] Aug, Hyperparathyroidism E21.3 [facility] [address] [address] Aug, Hyperparathyroidism E21.3 [facility] [address] [address] Aug, Arthritis M19.90 [facility] [address] [address] Jul, Mass of throat R22.1 [facility] [address] [address] Jul, [facility] [address] [address] Jul, Arthritis M19.90 [facility] [address] [address] Jun, Arthritis M19.90 [facility] [address] [place] [id number] [address] [place] [address] Jun, [facility] [address] [address] Jun, Renal insufficiency N28.9 an d Parathyroid 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 [facility] [address] [place] [id number] [place] [address] 05 Jun, 2016 Medicare welcome exam Z00.00 ; Encounter for immunization Z23 ; Arthritis M19.90 ; Medicare annual wellness visit, initial Z00.00 ; Medicare annual wellness visit, subsequent Z00.00 and 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 [facility] [address] [facility] [id number] [address] [place] [address] 29 May, 2016 Renal insufficiency N28.9 an d Parathyroid abnormality E21.5 [facility] [address] [facility] [id number] [address] [place] [address] May, Renal insufficiency N28.9 [facility] [address] [facility] [id number] [address] [place] [address] 16 May, 2016 Renal insufficiency N28.9 [facility] [address] [facility] [id number] [address] [place] [address] May, [facility] [address] [place] [id number] [place] [address] Apr, [facility] [address] [facility] [id number] [address] [place] [address] Apr, [facility] [address] [facility] [id number] [address] [place] [address] 14 Apr, 2016 Mass of throat R22.1 [facility] [address] [facility] [id number] [address] [place] [address] Apr, [facility] [address] [facility] [id number] [address] [place] [address] Apr, Mass of throat R22.1 [facility] [address] [facility] [id number] [address] [place] [address] 04 Apr, 2016 Mass of throat R22.1 [facility] [address] [facility] [id number] [address] [place] [address] Mar, [facility] [address] [facility] [id number] [address] [place] [address] Mar, [facility] [address] [place] [id number] [place] [address] Mar, [facility] [address] [id number] [address] [place] [address] Mar, Parathyroid abnormality E21. 5 and Encounter for immunization Z23 [facility] [address] [id number] [address] [place] [address] Mar, [facility] [address] [facility] [id number] [address] [place] [address] Mar, [facility] [address] [id number] [address] [place] [address] 21 Feb, 2016 Renal insufficiency N28.9 an d Hyperparathyroidism E21.3 [facility] [address] [facility] [id number] [address] [place] [address] 19 Feb, 2016 [facility] [address] [facility] [id number] [address] [place] [address] 15 Feb, 2016 Renal insufficiency N28.9 an d Hyperparathyroidism E21.3 [facility] [address] [facility] [id number] [address] [place] [address] 14 Feb, 2016 [facility] [address] [id number] [address] [place] [address] 12 Feb, 2016 [facility] [address] [facility] [id number] [address] [place] [address] 09 Feb, 2016 [facility] [address] [id number] [address] [place] [address] Jan, [facility] [address] [id number] [address] [place] [address] Jan, Arthritis M19.90 ; Lumbago w ith sciatica, right side M54.41 and Other chronic pain G89.29 [facility] [address] [id number] [address] [place] [address] Jan, [facility] [address] [id number] [address] [place] [address] Dec, Arthritis M19.90 ; Lumbago w ith sciatica, right side M54.41 and Other chronic pain G89.29 [facility] [address] [id number] [address] [place] [address] 16 Nov, 2015 Deficiency of other specifie d B group vitamins E53.8 ; Primary insomnia F51.01 ; Mood disorder F39 and Lumbago with sciatica, right side M54.41 [place] [address] [place] [id number] [place] [address] 13 Nov, 2015 Hyperparathyroidism E21.3 [place] [address] [id number] [address] [place] [address] Nov, Unspecified kidney failure N 19 and Hyperparathyroidism E21.3 [place] [address] [place] [id number] [place] [address] October, Hyperparathyroidism E21.3 [place] [address] [place] [id number] [place] [address] October, [place] [address] [place] [id number] [place] [address] October, Hyperparathyroidism E21.3 [place] [address] [place] [id number] [place] [address] October, Hyperparathyroidism E21.3 [place] [address] [place] [id number] [place] [address] Sep, Hyperparathyroidism E21.3 ; Hypercholesterolemia E78.0 and Arthritis M19.90 [place] [address] [id number] [address] [place] [address] Aug, [place] [address] [id number] [address] [place] [address] Aug, Deficiency of other specifie d B group vitamins E53.8 [facility] [address] [facility] [id number] [address] [place] [address] 07 Aug, 2015 [place] [address] [facility] [id number] [address] [place] [address] Jul, Urinary frequency R35.0 [facility] [address] [id number] [address] [place] [address] Jul, Urinary frequency R35.0 [facility] [address] [id number] [address] [place] [address] Jul, [facility] [address] [id number] [address] [place] [address] Jul, [facility] [address] [facility] [id number] [address] [place] [address] Jun, Pain in left knee M25.562 [facility] [address] [id number] [address] [place] [address] Jun, [facility] [address] [facility] [id number] [address] [place] [address] May, Swelling of left knee joint M25.462 [facility] [address] [facility] [id number] [address] [place] [address] May, [facility] [address] [facility] [id number] [address] [place] [address] May, [facility] [address] [facility] [id number] [address] [place] [address] May, [facility] [address] [id number] [address] [place] [address] Apr, Renal insufficiency N28.9 an d Chronic kidney disease, stage 4 (severe) N18.4 [facility] [address] [id number] [address] [place] [address] Apr, Unspecified kidney failure N 19 [facility] [address] [facility] [id number] [address] [place] [address] Apr, Unspecified kidney failure N 19 [facility] [address] [id number] [address] [place] [address] Apr, [facility] [address] [id number] [address] [place] [address] Apr, Hyperparathyroidism, unspeci fied 252.00 [facility] [address] [id number] [address] [place] [address] Apr, [facility] [address] [id number] [address] [place] [address] Mar, [facility] [address] [id number] [place] [address] Mar, [facility] [address] [id number] [address] [place] [address] Mar, Hyperparathyroidism, unspeci fied 252.00 [facility] [address] [id number] [place] [address] Feb, [facility] [address] [place] [id number] [place] [address] Feb, Otalgia 388.70 [facility] [address] [id number] [address] [place] [address] Feb, [facility] [address] [id number] [place] [address] Feb, [facility] [address] [address] Jan, [facility] [address] [place] [id number] [place] [address] Jan, Hyperparathyroidism, unspeci fied 252.00 [facility] [address] [id number] [address] [place] [address] Jan, [facility] [address] [id number] [address] [place] [address] Jan, Other B-complex deficiencies 266.2 and Hyperparathyroidism, unspecified 252.00 [facility] [address] [id number] [address] [place] [address] Jan, [facility] [address] [place] [id number] [address] [place] [address] Jan, [facility] [address] [id number] [address] [place] [address] Jan, [facility] [address] [id number] [address] [place] [address] Dec, [facility] [address] [id number] [address] [place] [address] Dec, [facility] [address] [id number] [address] [place] [address] Dec, [facility] [address] [id number] [address] [place] [address] Nov, Routine check-up V70.0 and P re-op exam V72.84 [facility] [address] [id number] [address] [place] [address] Nov, [facility] [address] [id number] [address] [place] [address] Nov, [facility] [address] [id number] [address] [place] [address] October, [facility] [address] [id number] [address] [place] [address] October, Other B-complex deficiencies 266.2 [facility] [address] [id number] [address] [place] [address] October, [facility] [address] [id number] [address] [place] [address] Sep, [facility] [address] [id number] [address] [place] [address] Sep, [facility] [address] [id number] [address] [place] [address] Aug, [facility] [address] [id number] [address] [place] [address] Aug, [facility] [address] [id number] [address] [place] [address], [place] [id number] 17 Aug, 2014 [facility] [address] [id number] [address] [place] [address], [place] [address] 17 Aug, 2014 [facility] [address] [id number] [address] [place] [address], [place] [address] Aug, 2014 [facility] [address] [id number] [address] [place] [address], [place] [address] Aug, 2014 [facility] [address] [id number] [address] [place] [address], [place] [address] 18 Jul, 2014 [facility] [address] [id number] [address] [place] [address], [place] [address] 18 Jul, 2014 [facility] [address] [id number] [address] [place] [address], [place] [address] 17 Jul, 2014 [facility] [address] [id number] [address] [place] [address], [place] [id number] 17 Jul, 2014 [facility] [address] [id number] [address] [place] [address], [place] [id number] 12 Jul, 2014 [facility] [address] [id number] [address] [place] [address], [place] [id number] 12 Jul, 2014 [facility] [address] [id number] [address] [place] [address], [place] [id number] 10 Jul, 2014 [facility] [address] [id number] [address] [place] [address], [place] [id number] 10 Jul, 2014 [facility] [address] [id number] [address] [place] [address], [place] [address] 09 Jul, 2014 [facility] [address] [id number] [address] [place] [address], [place] [id number] Jul, 2014 [facility] [address] [id number] [address] [place] [address], [place] [id number] 06 Jul, 2014 [facility] [address] [id number] [address] [place] [address], [place] [id number] Jul, [facility] [address] [id number] [address] [place] [address], [place] [id number] Jul, [facility] [address] [id number] [address] [place] [address], [place] [id number] Jul, [facility] [address] [id number] [address] [place] [address], [place] [address] Jun, [facility] [address] [id number] [address] [place] [address], [place] [address] Jun, [facility] [address] [id number] [address] [place] [address], [place] [address] Jun, [facility] [address] [id number] [address] [place] [address], [place] [address] Jun, [facility] [address] [id number] [address] [place] [address], [place] [id number] Jun, [facility] [address] [id number] [address] [place] [address], [place] [address] Jun, [facility] [address] [id number] [address] [place] [address], [place] [address] Jun, [facility] [address] [id number] [address] [place] [address], [place] [id number] Jun, [facility] [address] [id number] [address] [place] [address], [place] [address] Jun, [facility] [address] [id number] [address] [place] [address], [place] [id number] Jun, [facility] [address] [id number] [address] [place] [address], [place] [address] Jun, [facility] [address] [id number] [address] [place] [address], [place] [address] Jun, [facility] [address] [id number] [address] [place] [address], [place] [address] Jun, [facility] [address] [id number] [address] [place] [address], [place] [address] Jun, [facility] [address] [id number] [address] [place] [address], [place] [address] May, [facility] [address] [id number] [address] [place] [address], [place] [address] May, [facility] [address] [id number] [address] [place] [address], [place] [address] May, [facility] [address] [id number] [address] [place] [address], [place] [address] May, [facility] [address] [id number] [address] [place] [address], [place] [address] Apr, [facility] [address] [id number] [address] [place] [address], [place] [address] Apr, [facility] [address] [address] [id number] [address] [place] [address], [place] [address] Apr, [facility] [address] [id number] [address] [place] [address], [place] [address] Apr, [facility] [address] [id number] [address] [place] [address], [place] [address] Apr, [facility] [address] [id number] [address] [place] [address], [place] [address] Apr, [facility] [address] [id number] [address] [place] [address], [place] [address] Mar, [facility] [address] [id number] [address] [place] [address], [place] [address] Mar, [facility] [address] [id number] [address] [place] [address], [place] [address] Mar, [facility] [address] [id number] [address] [place] [address], [place] [address] Mar, [facility] [address] [id number] [address] [place] [address], [place] [address] Mar, [facility] [address] [id number] [address] [place] [address], [place] [address] 15 Mar, 2014 [facility] [address] [id number] [address] [place] [address], [place] [address] 13 Mar, 2014 [facility] [address] [id number] [address] [place] [address], [place] [address] 13 Mar, 2013 [facility] [address] [id number] [address] [place] [address], [place] [address] Mar, 2013 [facility] [address] [id number] [address] [place] [address], [place] [address] Mar, [facility] [address] [id number] [address] [place] [address], [place] [address] Mar, [facility] [address] [id number] [address] [place] [address], [place] [address] Mar, [facility] [address] [id number] [address] [place] [address], [place] [address] 06 Mar, 2014 [facility] [address] [id number] [address] [place] [address], [place] [address] 26 Feb, 2013 [facility] [address] [id number] [address] [place] [address], [place] [address] 26 Feb, 2013 [facility] [address] [id number] [address] [place] [address], [place] [address] 23 Feb, 2013 [facility] [address] [id number] [address] [place] [address], [place] [address] 23 Sep, 2013 [facility] [address] [id number] [address] [place] [address], [place] [address] 19 Feb, 2013 [facility] [address] [id number] [address] [place] [address], [place] [address] 19 Feb, 2013 [facility] [address] [id number] [address] [place] [address], [place] [address] 13 Feb, 2013 [facility] [address] [id number] [address] [place] [address] [place] [address] 13 Feb, 2014 [facility] [address] [id number] [address] [place] [address], [place] [address] Feb, [facility] [address] [id number] [address] [place] [address], [place] [address] Feb, [facility] [address] [id number] [address] [place] [address], [place] [address] Jan, [facility] [address] [id number] [address] [place] [address], [place] [address] Jan, [facility] [address] [id number] [address] [place] [address], [place] [address] Dec, [facility] [address] [id number] [address] [place] [address], [place] [address] Dec, [facility] [address] [id number] [address] [place] [address], [place] [address] Dec, [facility] [address] [id number] [address] [place] [address], [place] [address] Dec, [facility] [address] [id number] [address] [place] [address], [place] [address] Dec, [facility] [address] [id number] [address] [place] [address], [place] [address] Dec, [facility] [address] [id number] [address] [place] [address], [place] [address] Nov, [facility] [address] [id number] [address] [place] [address], [place] [address] Nov, [facility] [address] [id number] [address] [place] [address], [place] [address] Nov, [facility] [address] [id number] [address] [place] [address], [place] [address] Nov, [facility] [address] [id number] [address] [place] [address], [place] [address] October, [facility] [address] [id number] [address] [place] [address], [place] [address] October, [facility] [address] [id number] [address] [place] [address], [place] [address] October, [facility] [address] [id number] [address] [place] [address], [place] [address] October, [facility] [address] [id number] [address] [place] [address], [place] [address] October, [facility] [address] [id number] [address] [place] [address], [place] [address] October, [facility] [address] [id number] [address] [place] [address], [place] [address] October, [facility] [address] [id number] [address] [place] [address], [place] [address] October, [facility] [address] [id number] [address] [place] [address], [place] [address] October, [facility] [address] [id number] [address] [place] [address], [place] [address] October, [facility] [address] [id number] [address] [place] [address], [place] [address] October, [facility] [address] [id number] [address] [place] [address], [place] [address] October, [facility] [address] [id number] [address] [place] [address], [place] [address] October, [facility] [address] [id number] [address] [place] [address], [place] [address] October, [facility] [address] [id number] [address] [place] [address], [place] [address] October, [facility] [address] [id number] [address] [place] [address], [place] [address] October, [facility] [address] [id number] [address] [place] [address], [place] [address] Sep, [facility] [address] [id number] [facility] [address] Sep, [facility] [address] [id number] [address] [place] [address], [place] [address] Sep, [facility] [address] [id number] [facility] [place] [address] Sep, [facility] [address] [id number] [address] [place] [address], [place] [address] Sep, [facility] [address] [id number] [address] [place] [address], [place] [address] Sep, [facility] [address] [id number] [address] [place] [address], [place] [address] Aug, [facility] [address] [id number] [address] [place] [address], [place] [address] Aug, [facility] [address] [id number] [address] [place] [address], [place] [address] Aug, [facility] [address] [id number] [address] [place] [address], [place] [address] Aug, [facility] [address] [id number] [address] [place] [address], [place] [address] Aug, [facility] [address] [id number] [address] [place] [address], [place] [address] Aug, [facility] [address] [id number] [address] [place] [address], [place] [address] Jul, [facility] [address] [id number] [address] [place] [address], [place] [address] Jul, [facility] [address] [id number] [address] [place] [address], [place] [address] Jul, [facility] [address] [id number] [address] [place] [address], [place] [address] Jul, [facility] [address] [id number] [address] [place] [address], [place] [address] 13 Jun, 2013 [facility] [address] [id number] [address] [place] [address], [place] [address] 13 Jun, 2013 [facility] [address] [id number] [address] [place] [address], [place] [address] 11 May, 2013 [facility] [address] [id number] [address] [place] [address], [place] [address] May, [facility] [address] [id number] [address] [place] [address], [place] [address] May, [facility] [address] [id number] [address] [place] [address], [place] [address] May, [facility] [address] [id number] [address] [place] [address], [place] [address] May, [facility] [address] [id number] [address] [place] [address], [place] [address] Apr, [facility] [address] [id number] [address] [place] [address], [place] [address] Apr, [facility] [address] [id number] [address] [place] [address], [place] [address] Apr, [facility] [address] [id number] [address] [place] [address], [place] [address] Apr, [facility] [address] [id number] [address] [place] [address], [place] [address] Apr, [facility] [address] [id number] [address] [place] [address], [place] [address] 04 Apr, 2013 [facility] [address] [id number] [address] [place] [address], [place] [address] 15 Mar, 2013 [facility] [address] [id number] [address] [place] [address], [place] [address] 15 Mar, 2013 [facility] [address] [id number] [address] [place] [address], [place] [address] 14 Mar, 2013 [facility] [address] [id number] [address] [place] [address], [place] [address] 14 Mar, 2013 [facility] [address] [id number] [address] [place] [address], [place] [address] 11 Mar, 2013 [facility] [address] [id number] [address] [place] [address], [place] [address] 11 Mar, 2013 [facility] [address] [id number] [address] [place] [address], [place] [address] 23 Feb, 2013 [facility] [address] [id number] [address] [place] [address], [place] [address] Feb, [facility] [address] [id number] [address] [place] [address], [place] [address] Feb, [facility] [address] [id number] [address] [place] [address], [place] [address] Jan, [facility] [address] [id number] [address] [place] [address], [place] [address] Jan, [facility] [address] [id number] [address] [place] [address], [place] [address] Jan, [facility] [address] [id number] [address] [place] [address], [place] [address] Jan, [facility] [address] [id number] [address] [place] [address], [place] [address] Jan, [facility] [address] [id number] [address] [place] [address], [place] [address] Jan, [facility] [address] [id number] [address] [place] [address], [place] [address] Dec, [facility] [address] [id number] [address] [place] [address], [place] [address] Dec, [facility] [address] [id number] [address] [place] [address], [place] [address] Dec, [facility] [address] [id number] [address] [place] [address] [place] [address] Dec, [facility] [address] [id number] [address] [place] [address], [place] [address] Dec, [facility] [address] [id number] [address] [place] [address], [place] [address] Dec, [facility] [address] [id number] [address] [place] [address], [place] [address] Nov, [facility] [address] [id number] [address] [place] [address], [place] [address] Nov, [facility] [address] [id number] [address] [place] [address], [place] [address] Nov, [facility] [address] [id number] [address] [place] [address], [place] [address] Nov, [facility] [address] [id number] [address] [place] [address], [place] [address] Nov, [facility] [address] [id number] [address] [place] [address], [place] [address] Nov, [facility] [address] [id number] [address] [place] [address], [place] [address] October, [facility] [address] [id number] [address] [place] [address], [place] [address] October, [facility] [address] [id number] [address] [place] [address], [place] [address] October, [facility] [address] [id number] [address] [place] [address], [place] [address] October, [facility] [address] [id number] [address] [place] [address], [place] [address] October, [facility] [address] [id number] [address] [place] [address], [place] [address] Sep, [facility] [address] [id number] [address] [place] [address], [place] [address] Sep, [facility] [address] [id number] [address] [place] [address], [place] [address] Sep, [facility] [address] [id number] [address] [place] [address], [place] [address] 18 Sep, 2012 [facility] [address] [id number] [address] [place] [address], [place] [address] 09 Sep, 2012 [facility] [address] [id number] [address] [place] [address], [place] [address] 26 Aug, 2012 [facility] [address] [id number] [address] [place] [address], [place] [address] 07 Aug, 2012 [facility] [address] [id number] [address] [place] [address], [place] [address] 04 Aug, 2012 [facility] [address] [id number] [address] [place] [address], [place] [address] Jul, [facility] [address] [id number] [address] [place] [address], [place] [address] 20 Jul, 2012 [facility] [address] [id number] [address] [place] [address], [place] [address] Jul, [facility] [address] [id number] [address] [place] [address], [place] [address] 08 Jul, 2012 [facility] [address] [id number] [address] [place] [address], [place] [address] 06 Jul, 2012 [facility] [address] [id number] [address] [place] [address], [place] [address] 05 Jul, 2012 [facility] [address] [id number] [address] [place] [address], [place] [address] 15 Jun, 2012 [facility] [address] [id number] [address] [place] [address], [place] [address] 16 Apr, 2012 [facility] [address] [id number] [address] [place] [address] 16 Apr, 2012 [facility] [address] [id number] [address] [place] [id number] Apr, [facility] [address] [id number] [address] [place] [address], [place] [address] Apr, [facility] [address] [id number] [address] [place] [address], [place] [address] Mar, [facility] [address] [id number] [address] [place] [address], [place] [address] Mar, [facility] [address] [id number] [address] [place] [address], [place] [address] Mar, [facility] [address] [id number] [address] [place] [address], [place] [address] Mar, [facility] [address] [id number] [address] [place] [address], [place] [address] Mar, [facility] [address] [id number] [address] [place] [address], [place] [address] Feb, [facility] [address] [id number] [address] [place] [address], [place] [address] Jan, [facility] [address] [id number] [address] [place] [address], [place] [address] Jan, [facility] [address] [id number] [address] [place] [address], [place] [address] Jan, [facility] [address] [id number] [address] [place] [address], [place] [address] Dec, [facility] [address] [id number] [address] [place] [address] Nov, [facility] [address] [id number] [address] [place] [address], [place] [address] Nov, [facility] [address] [id number] [address] [place] [address], [place] [address] Nov, [facility] [address] [id number] [address] [place] [address], [place] [address] Nov, [facility] [address] [facility] [id number] [address] [place] [address] Nov, [facility] [address] [facility] [id number] [place] [id number] October, [facility] [address] [facility] [id number] [address] [place] [id number] October, [facility] [address] [facility] [id number] [address] [place] [id number] October, [facility] [address] [facility] [id number] [address] [place] [id number] October, [facility] [address] [facility] [id number] [address] [place] [phone] October, IMMUNIZATIONS No Known Immunizations SOCIAL HISTORY Never Assessed REASON FOR VISIT Dizziness for three months--Alejandra Carpenter MA PLAN OF CARE VITAL SIGNS Height 66 in 2017-05-18 Weight 262.9 lbs 2017-05-18 Temperature 97.5 degrees Fahrenheit 2017-05-18 Heart Rate 82 bpm 2017-05-18 Respiratory Rate 20 2017-05-18 BMI 42.43 kg/m2 2017-05-18 Blood pressure systolic 130 mmHg 2017-05-18 Blood pressure diastolic 84 mmHg 2017-05-18 MEDICATIONS Medication Instructions Dosage Frequency Start Date End Date Duration S tatus Chlorzoxazone 500 mg 1 tablet 12h Ac tive Cetirizine HCl 10 MG Orally Once a day 1 tablet 24h Active Bicarb-Mg (CRRT) 10 by oral route 2 times a day 2 tablets 12h Active Calcium 500 mg Orally 3 times a day 1 tablet 8h Active Hydrocodone-Acetaminophen 10-325 MG Orally 3 times a day 1 tablet a s needed 8h Apr, 28 days Active Fluticasone Propionate 50 MCG/ACT Nasally Once a day 1 spray in each nostril 24h 19 Feb, 2016 Not-Taking Neurontin 100 mg Orally 2 times a day 1 capsule 12h Sep, Not-Taking Omeprazole 40 mg 1 capsule 24h 30 Activ e Zolpidem Tartrate 10 mg Orally Once a day 1 tablet at bedtime 24h 28 days Active Levothyroxine Sodium 50 mcg Orally Once a day 1 tablet on an empty stomach in the morning 24h 30 Active Cholecalciferol 71102 UNIT 1 capsule monthly Not-Taking Voltaren by topical route Dec, N ot-Taking Meclizine HCl 25 MG Orally 4 times a day 1 tablet as needed 6h 26 2016 Active Multivital Vance Acti ve Lisinopril 10 mg 1 tablet 24h 30 Active Vitamin D 1000 UNIT Orally Once a day 1 tablet 24h Not-Taking Guaifenesin 400 mg Orally every 4 hrs 1 tablet as needed 4h 24 Jul, 2016 Not-Taking RESULTS No Results PROCEDURES Procedure Date Ordered Result Body Site [facility] VIS[facility] ESTABLISHED PATIENT May 18, 2017 INSTRUCTIONS MEDICATIONS ADMINISTERED No Known Medications [...]
--- OUTSIDE RECORDS SUMMARY | 2020-01-25 08:10 | XMS REPORT ---
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 CORDERO Unavailable PROBLEMS Type Condition ICD9-CM Code [id number] Code Onset Dates Condition S tatus SNOMED Code Problem Hypercholesteremia E78.0 Active 1 7131892 Problem Arthritis M19.90 Active 2680337 Problem Hyperparathyroidism E21.3 Active 11283928 Problem Primary insomnia F51.01 Active 397 2004 Problem Myalgia M79.1 Active 44857189 Problem Chronic kidney disease, stage 4 (severe) N18.4 Active 157737939 Problem BPV (benign positional vertigo), bilateral H81.13 Active 959766419 Problem Corns L84 Active 082127223 Problem Mood disorder F39 Active 243706 05 Problem 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 Active 80876669 Problem 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 Active 94275957 ALLERGIES Substance Reaction Event Type Date Status Ibuprofen no anti inflammatories Drug Allergy Nov, Activ e Cymbalta nausea and vomiting Drug Allergy Nov, Active Clonidine HCl blurry vision/weakness Drug Allergy Nov, Acti ve ENCOUNTERS Encounter Location Date Diagnosis [facility] [address] [facility] [id number] [address] [place] [address] Sep, [facility] [address] [facility] [id number] [address] [place] [address] Aug, Labyrinthitis of left ear H8 3.02 and Arthritis M19.90 [facility] [address] [facility] [id number] [address] [place] [address] Aug, [facility] [address] [facility] [id number] [address] [place] [address] Jul, [facility] [address] [place] [id number] [address] [place] [address] Jul, Arthritis M19.90 and Labyrin thitis of left ear H83.02 [facility] [address] [place] [id number] [address] [place] [address] Jul, [facility] [address] [place] [id number] [address] [place] [address] Jun, [place] [address] [place] [id number] [address] [place] [address] Jun, Arthritis M19.90 and Labyrin thitis of left ear H83.02 [place] [address] [place] [id number] [place] [address] Jun, Pre-op evaluation Z01.818 ; BMI 40.0-44.9, adult Z68.41 and Encounter for immunization Z23 [place] [address] [place] [id number] [place] [address] May, Arthritis M19.90 and Labyrin thitis of left ear H83.02 [place] [address] [place] [id number] [address] [place] [address] Apr, Labyrinthitis of left ear H8 3.02 [place] [address] [place] [id number] [address] [place] [address] Apr, Arthritis M19.90 and Labyrin thitis of left ear H83.02 [place] [address] [place] [id number] [address] [place] [address] Mar, Arthritis M19.90 and Labyrin thitis of left ear H83.02 [place] [address] [place] [id number] [address] [place] [address] 05 Mar, 2017 Chronic kidney disease, stag e 4 (severe) N18.4 [facility] [address] [place] [id number] [address] [place] [address] 06 Feb, 2017 Arthritis M19.90 and Labyrin thitis of left ear H83.02 [facility] [address] [id number] [address] [place] [address] 10 Jan, 2017 Labyrinthitis of left ear H8 3.02 and 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 [facility] [address] [id number] [address] [place] [address] Dec, Arthritis M19.90 [facility] [address] [facility] [id number] [address] [place] [address] Dec, BPV (benign positional verti go), bilateral H81.13 [facility] [address] [facility] [id number] [address] [place] [address] Dec, [facility] [address] [facility] [id number] [address] [place] [address] Dec, [facility] [address] [facility] [id number] [address] [place] [address] Dec, [facility] [address] [facility] [id number] [address] [place] [address] Nov, Arthritis M19.90 and Deficie ncy of other specified B group vitamins E53.8 [facility] [address] [facility] [id number] [address] [place] [address] Nov, Arthritis M19.90 [facility] [address] [facility] [id number] [address] [place] [address] Nov, Hyperparathyroidism E21.3 [facility] [address] [facility] [id number] [address] [place] [address] October, [facility] [address] [facility] [id number] [address] [place] [address] October, Hyperparathyroidism E21.3 [facility] [address] [facility] [id number] [address] [place] [address] October, [facility] [address] [facility] [id number] [address] [place] [address] October, Renal insufficiency N28.9 an d Hyperparathyroidism E21.3 [facility] [address] [facility] [id number] [address] [place] [address] October, [facility] [address] [place] [id number] [address] [place] [address] October, Renal insufficiency N28.9 an d Hyperparathyroidism E21.3 [facility] [address] [place] [id number] [address] [place] [address] October, Arthritis M19.90 [facility] [address] [facility] [id number] [address] [place] [address] Sep, [facility] [address] [address] Sep, Lumbar neuritis M54.16 ; Tho racic abscess J86.9 and 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 [facility] [address] [facility] [id number] [address] [place] [address] Sep, [facility] [address] [place] [id number] [address] [place] [address] Aug, Arthritis M19.90 [facility] [address] [place] [id number] [address] [place] [address] Aug, Hyperparathyroidism E21.3 [facility] [address] [place] [id number] [address] [place] [address] Aug, Hyperparathyroidism E21.3 [facility] [address] [place] [id number] [address] [place] [address] Aug, Arthritis M19.90 [facility] [address] [place] [id number] [address] [place] [address] Jul, Mass of throat R22.1 [facility] [address] [place] [id number] [address] [place] [address] Jul, [facility] [address] [place] [id number] [address] [place] [address] Jul, Arthritis M19.90 [facility] [address] [facility] [id number] [address] [place] [address] Jun, Arthritis M19.90 [facility] [address] [facility] [id number] [address] [place] [address] 13 Jun, 2016 [facility] [address] [facility] [id number] [address] [place] [address] Jun, Renal insufficiency N28.9 an d 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 [facility] [address] [facility] [id number] [address] [place] [address] 05 Jun, 2016 Medicare welcome exam Z00.00 ; Encounter for immunization Z23 ; Arthritis M19.90 ; Medicare annual wellness visit, initial Z00.00 ; Medicare annual wellness visit, subsequent Z00.00 and 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 [facility] [address] [facility] [id number] [address] [place] [address] 29 May, 2016 Renal insufficiency N28.9 an d 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 [facility] [address] [facility] [id number] [address] [place] [address] 19 May, 2016 Renal insufficiency N28.9 [facility] [address] [facility] [id number] [address] [place] [address] 16 May, 2016 Renal insufficiency N28.9 [facility] [address] [facility] [id number] [address] [place] [address] 14 May, 2016 [facility] [address] [facility] [id number] [address] [place] [address] Apr, [facility] [address] [facility] [id number] [address] [place] [address] Apr, [facility] [address] [facility] [id number] [address] [place] [address] 14 Apr, 2016 Mass of throat R22.1 [facility] [address] [facility] [id number] [address] [place] [address] 10 Apr, [address] [place] [address] [id number] [address] [place] [address] Apr, Mass of throat R22.1 [facility] [address] [id number] [address] [place] [address] 04 Apr, 2016 Mass of throat R22.1 [facility] [address] [facility] [id number] [address] [place] [address] Mar, [facility] [address] [id number] [address] [place] [address] Mar, [facility] [address] [id number] [address] [place] [address] Mar, [facility] [address] [facility] [id number] [address] [place] [address] 24 Mar, 2016 Parathyroid abnormality E21. 5 and Encounter for immunization Z23 [facility] [address] [facility] [id number] [address] [place] [address] Mar, [facility] [address] [facility] [id number] [address] [place] [address] Mar, [facility] [address] [facility] [id number] [address] [place] [address] 21 Feb, 2016 Renal insufficiency N28.9 an d Hyperparathyroidism E21.3 [facility] [address] [facility] [id number] [address] [place] [address] 19 Feb, 2016 [facility] [address] [facility] [id number] [address] [place] [address] 15 Feb, 2016 Renal insufficiency N28.9 an d Hyperparathyroidism E21.3 [facility] [address] [facility] [id number] [address] [place] [address] 14 Feb, 2016 [facility] [address] [facility] [id number] [address] [place] [address] 12 Feb, 2016 [facility] [address] [facility] [id number] [address] [place] [address] 09 Feb, 2016 [facility] [address] [facility] [id number] [address] [place] [address] Jan, [facility] [address] [facility] [id number] [address] [place] [address] Jan, Arthritis M19.90 ; Lumbago w ith sciatica, right side M54.41 and Other chronic pain G89.29 [facility] [address] [facility] [id number] [address] [place] [address] Jan, [facility] [address] [facility] [id number] [address] [place] [address] Dec, Arthritis M19.90 ; Lumbago w ith sciatica, right side M54.41 and Other chronic pain G89.29 [place] [address] [place] [id number] [address] [place] [address] 16 Nov, 2015 Deficiency of other specifie d B group vitamins E53.8 ; Primary insomnia F51.01 ; Mood disorder F39 and Lumbago with sciatica, right side M54.41 [facility] [address] [place] [id number] [address] [place] [address] Nov, Hyperparathyroidism E21.3 [place] [address] [facility] [id number] [address] [place] [address] Nov, Unspecified kidney failure N 19 and Hyperparathyroidism E21.3 [place] [address] [facility] [id number] [address] [place] [address] October, Hyperparathyroidism E21.3 [facility] [address] [facility] [id number] [address] [place] [address] October, [place] [address] [place] [id number] [address] [place] [address] October, Hyperparathyroidism E21.3 [facility] [address] [place] [id number] [address] [place] [address] October, Hyperparathyroidism E21.3 [facility] [address] [place] [id number] [address] [place] [address] Sep, Hyperparathyroidism E21.3 ; Hypercholesterolemia E78.0 and Arthritis M19.90 [facility] [address] [address] Aug, [facility] [address] [address] Aug, Deficiency of other specifie d B group vitamins E53.8 [facility] [address] [address] Aug, [facility] [address] [address] Jul, Urinary frequency R35.0 [facility] [address] [address] Jul, Urinary frequency R35.0 [facility] [address] [address] Jul, [facility] [address] [address] Jul, [facility] [address] [address] Jun, Pain in left knee M25.562 [facility] [address] [address] Jun, [facility] [address] [place] [id number] [address] [place] [address] May, Swelling of left knee joint M25.462 [facility] [address] [place] [id number] [address] [place] [address] May, [facility] [address] [address] May, [facility] [address] [place] [id number] [address] [place] [address] May, [facility] [address] [place] [id number] [place] [address] Apr, Renal insufficiency N28.9 an d Chronic kidney disease, stage 4 (severe) N18.4 [facility] [address] [facility] [id number] [address] [place] [address] Apr, Unspecified kidney failure N 19 [facility] [address] [facility] [id number] [address] [place] [address] Apr, Unspecified kidney failure N 19 [facility] [address] [facility] [id number] [address] [place] [address] Apr, [facility] [address] [place] [id number] [address] [place] [address] Apr, Hyperparathyroidism, unspeci fied 252.00 [facility] [address] [place] [id number] [address] [place] [address] Apr, [facility] [address] [place] [id number] [address] [place] [address] Mar, [facility] [address] [facility] [id number] [address] [place] [address] Mar, [facility] [address] [place] [id number] [address] [place] [address] Mar, Hyperparathyroidism, unspeci fied 252.00 [facility] [address] [place] [id number] [address] [place] [address] Feb, [facility] [address] [place] [id number] [address] [place] [address] Feb, Otalgia 388.70 [facility] [address] [place] [id number] [address] [place] [address] Feb, [facility] [address] [place] [id number] [address] [place] [address] Feb, [facility] [address] [place] [id number] [address] [place] [address] Jan, [facility] [address] [id number] [address] [place] [address] Jan, Hyperparathyroidism, unspeci fied 252.00 [facility] [address] [id number] [address] [place] [address] Jan, [facility] [address] [id number] [address] [place] [address] Jan, Other B-complex deficiencies 266.2 and Hyperparathyroidism, unspecified 252.00 [facility] [address] [id number] [address] [place] [address] Jan, [facility] [address] [id number] [address] [place] [address] Jan, [facility] [address] [id number] [address] [place] [address] Jan, [facility] [address] [id number] [address] [place] [address] Dec, [facility] [address] [id number] [address] [place] [address] Dec, [facility] [address] [id number] [address] [place] [address] Dec, [facility] [address] [id number] [address] [place] [address] Nov, Routine check-up V70.0 and P re-op exam V72.84 [facility] [address] [id number] [address] [place] [address] Nov, [facility] [address] [id number] [address] [place] [address] Nov, [facility] [address] [id number] [address] [place] [address] October, [facility] [address] [id number] [address] [place] [address] October, Other B-complex deficiencies 266.2 [facility] [address] [id number] [address] [place] [address], [place] [address] 12 Oct, 2014 [facility] [address] [id number] [address] [place] [address], [place] [address] 14 Sep, 2014 [facility] [address] [id number] [address] [place] [address], [place] [address] 13 Sep, 2014 [facility] [address] [id number] [address] [place] [address], [place] [address] 20 Aug, 2014 [facility] [address] [id number] [address] [place] [address], [place] [address] 20 Aug, 2014 [facility] [address] [id number] [address] [place] [address], [place] [address] 17 Aug, 2014 [facility] [address] [id number] [address] [place] [address], [place] [address] 17 Aug, 2014 [facility] [address] [id number] [address] [place] [address], [place] [address] Aug, [facility] [address] [id number] [address] [place] [address], [place] [address] Aug, [facility] [address] [id number] [address] [place] [address], [place] [address] 18 Jul, [address] [facility] [address] [id number] [address] [place] [address], [place] [address] 18 Jul, 2014 [facility] [address] [id number] [address] [place] [address], [place] [address] 17 Jul, 2014 [facility] [address] [id number] [address] [place] [address], [place] [address] 17 Jul, 2014 [facility] [address] [id number] [address] [place] [address], [place] [address] 12 Jul, [address] [facility] [address] [id number] [address] [place] [address], [place] [address] 12 Jul, 2014 [facility] [address] [id number] [address] [place] [address] Jul, 2014 [facility] [address] [id number] [address] [place] [address], [place] [address] Jul, 2014 [facility] [address] [id number] [address] [place] [address], [place] [address] Jul, 2014 [facility] [address] [id number] [address] [place] [address], [place] [address] Jul, 2014 [facility] [address] [id number] [address] [place] [address], [place] [address] Jul, 2014 [facility] [address] [id number] [address] [place] [address], [place] [address] Jul, 2014 [facility] [address] [id number] [address] [place] [address], [place] [address] Jul, [facility] [address] [id number] [address] [place] [address], [place] [address] Jul, [facility] [address] [id number] [address] [place] [address] Jun, [facility] [address] [id number] [address] [place] [address], [place] [address] Jun, [facility] [address] [id number] [address] [place] [phone] Jun, [facility] [address] [id number] [address] [place] [address], [place] [address] Jun, [facility] [address] [id number] [address] [place] [id number] Jun, [facility] [address] [id number] [address] [place] [id number] Jun, [facility] [address] [id number] [address] [place] [id number] Jun, [facility] [address] [id number] [address] [place] [id number] Jun, [facility] [address] [id number] [address] [place] [address], [place] [address] Jun, [facility] [address] [id number] [address] [place] [address], [place] [address] Jun, [facility] [address] [id number] [address] [place] [address], [place] [address] Jun, [facility] [address] [id number] [address] [place] [address], [place] [address] Jun, [facility] [address] [id number] [address] [place] [address], [place] [address] Jun, [facility] [address] [id number] [address] [place] [address], [place] [address] Jun, [facility] [address] [id number] [address] [place] [address], [place] [address] May, [facility] [address] [id number] [address] [place] [address], [place] [address] May, [facility] [address] [id number] [address] [place] [address], [place] [address] May, [facility] [address] [id number] [address] [place] [address], [place] [address] May, [facility] [address] [id number] [address] [place] [address], [place] [address] Apr, [facility] [address] [id number] [address] [place] [address], [place] [address] Apr, [facility] [address] [id number] [address] [place] [address], [place] [address] Apr, [facility] [address] [id number] [address] [place] [address], [place] [address] Apr, [facility] [address] [id number] [address] [place] [address], [place] [address] Apr, [facility] [address] [id number] [address] [place] [address], [place] [address] Apr, [facility] [address] [id number] [address] [place] [address], [place] [address] Mar, [facility] [address] [id number] [address] [place] [address], [place] [address] Mar, [facility] [address] [id number] [address] [place] [address], [place] [address] Mar, [facility] [address] [id number] [address] [place] [address], [place] [address] Mar, [facility] [address] [id number] [address] [place] [address], [place] [address] Mar, [facility] [address] [id number] [address] [place] [address], [place] [address] Mar, [facility] [address] [id number] [address] [place] [address], [place] [address] Mar, [facility] [address] [id number] [address] [place] [address], [place] [address] Mar, [facility] [address] [id number] [address] [place] [address], [place] [address] Mar, [facility] [address] [id number] [address] [place] [address], [place] [address] Mar, [facility] [address] [id number] [address] [place] [address], [place] [address] 07 Mar, 2014 [facility] [address] [id number] [address] [place] [address] 07 Mar, 2014 [facility] [address] [id number] [address] [place] [address], [place] [address] 06 Mar, 2014 [facility] [address] [id number] [address] [place] [address], [place] [address] Feb, [facility] [address] [id number] [address] [place] [address], [place] [address] Feb, [facility] [address] [id number] [facility] [place] [address] 23 Feb, 2013 [facility] [address] [id number] [facility] [place] [address] 23 Feb, 2013 [facility] [address] [id number] [facility] [place] [address] 19 Feb, 2013 [facility] [address] [id number] [address] [place] [address], [place] [address] 19 Feb, 2013 [facility] [address] [id number] [address] [place] [address], [place] [address] 13 Feb, 2013 [facility] [address] [id number] [address] [place] [address], [place] [address] 13 Feb, 2014 [facility] [address] [id number] [address] [place] [address], [place] [address] Feb, [facility] [address] [id number] [address] [place] [address], [place] [address] Feb, [facility] [address] [id number] [address] [place] [address], [place] [address] Jan, [facility] [address] [id number] [address] [place] [address], [place] [address] Jan, [facility] [address] [id number] [address] [place] [address], [place] [address] Dec, [facility] [address] [id number] [address] [place] [address], [place] [address] Dec, [facility] [address] [id number] [address] [place] [address], [place] [address] Dec, [facility] [address] [id number] [address] [place] [address], [place] [address] Dec, [facility] [address] [id number] [address] [place] [address], [place] [address] Dec, [facility] [address] [id number] [address] [place] [address], [place] [address] Dec, [facility] [address] [id number] [facility] [place] [address] Nov, [facility] [address] [id number] [address] [place] [address], [place] [address] Nov, [facility] [address] [id number] [address] [place] [address], [place] [address] Nov, [facility] [address] [id number] [address] [place] [address], [place] [address] Nov, [facility] [address] [id number] [address] [place] [address], [place] [address] October, [facility] [address] [id number] [address] [place] [address], [place] [address] October, [facility] [address] [id number] [address] [place] [address], [place] [address] October, [facility] [address] [id number] [address] [place] [address], [place] [address] October, [facility] [address] [id number] [address] [place] [address], [place] [address] October, [facility] [address] [id number] [address] [place] [address], [place] [address] October, [facility] [address] [id number] [address] [place] [address], [place] [address] October, [facility] [address] [id number] [address] [place] [address], [place] [address] October, [facility] [address] [id number] [address] [place] [address], [place] [address] October, [facility] [address] [id number] [address] [place] [address], [place] [address] October, [facility] [address] [id number] [address] [place] [address], [place] [address] October, [facility] [address] [id number] [address] [place] [address], [place] [address] October, [facility] [address] [id number] [facility] [place] [address] October, [facility] [address] [id number] [address] [place] [address], [place] [address] October, [facility] [address] [id number] [address] [place] [address], [place] [address] October, [facility] [address] [id number] [address] [place] [address], [place] [address] October, [facility] [address] [id number] [address] [place] [address], [place] [address] Sep, [facility] [address] [id number] [address] [place] [address], [place] [address] Sep, [facility] [address] [id number] [address] [place] [address], [place] [address] Sep, [facility] [address] [id number] [address] [place] [address], [place] [address] Sep, [facility] [address] [id number] [address] [place] [address], [place] [address] Sep, [facility] [address] [id number] [address] [place] [address], [place] [address] Sep, [facility] [address] [id number] [address] [place] [address], [place] [address] Aug, [facility] [address] [id number] [address] [place] [address], [place] [address] Aug, [facility] [address] [id number] [address] [place] [address], [place] [address] Aug, [facility] [address] [id number] [address] [place] [address], [place] [address] Aug, [facility] [address] [id number] [address] [place] [address], [place] [address] Aug, [facility] [address] [id number] [address] [place] [address], [place] [address] Aug, [facility] [address] [id number] [address] [place] [address], [place] [address] Jul, [facility] [address] [id number] [address] [place] [address], [place] [address] Jul, [facility] [address] [id number] [address] [place] [address], [place] [address] Jul, [facility] [address] [id number] [address] [place] [address], [place] [address] Jul, [facility] [address] [id number] [address] [place] [address], [place] [address] Jun, [facility] [address] [id number] [address] [place] [address], [place] [address] Jun, [facility] [address] [id number] [address] [place] [address], [place] [address] May, [facility] [address] [id number] [address] [place] [address], [place] [address] May, [facility] [address] [id number] [address] [place] [address], [place] [address] May, [facility] [address] [id number] [address] [place] [address], [place] [address] May, [facility] [address] [id number] [address] [place] [address], [place] [address] May, [facility] [address] [id number] [address] [place] [address], [place] [address] Apr, [facility] [address] [id number] [address] [place] [address], [place] [address] Apr, [facility] [address] [id number] [address] [place] [address], [place] [address] Apr, [facility] [address] [id number] [address] [place] [address], [place] [address] Apr, [facility] [address] [id number] [address] [place] [address], [place] [address] 04 Apr, 2013 [facility] [address] [id number] [address] [place] [address], [place] [address] 04 Apr, 2013 [facility] [address] [id number] [address] [place] [address], [place] [address] 15 Mar, 2013 [facility] [address] [id number] [address] [place] [address], [place] [address] 15 Mar, 2013 [facility] [address] [id number] [address] [place] [address], [place] [address] 14 Mar, 2013 [facility] [address] [id number] [address] [place] [address], [place] [address] 14 Mar, 2013 [facility] [address] [id number] [address] [place] [address], [place] [address] 11 Mar, 2013 [facility] [address] [id number] [address] [place] [address], [place] [address] Mar, [facility] [address] [id number] [address] [place] [address], [place] [address] 23 Feb, 2013 [facility] [address] [id number] [address] [place] [address], [place] [address] Feb, [facility] [address] [id number] [address] [place] [address], [place] [address] Feb, [facility] [address] [id number] [address] [place] [address], [place] [address] 30 Jan, 2013 [facility] [address] [id number] [address] [place] [address], [place] [address] Jan, [facility] [address] [id number] [address] [place] [address], [place] [address] Jan, [facility] [address] [id number] [address] [place] [address], [place] [address] 16 Jan, 2013 [facility] [address] [id number] [address] [place] [address], [place] [address] Jan, [facility] [address] [id number] [address] [place] [address], [place] [address] Jan, [facility] [address] [id number] [address] [place] [address], [place] [address] Dec, [facility] [address] [id number] [address] [place] [address], [place] [address] Dec, [facility] [address] [id number] [address] [place] [address], [place] [address] Dec, [facility] [address] [id number] [address] [place] [address], [place] [address] Dec, [facility] [address] [id number] [address] [place] [address], [place] [address] Dec, [facility] [address] [id number] [address] [place] [address], [place] [address] Dec, [facility] [address] [id number] [address] [place] [address], [place] [address] Nov, [facility] [address] [id number] [address] [place] [address], [place] [address] Nov, [facility] [address] [id number] [address] [place] [address], [place] [address] Nov, [facility] [address] [id number] [address] [place] [address], [place] [address] Nov, [facility] [address] [id number] [address] [place] [address], [place] [address] Nov, [facility] [address] [id number] [address] [place] [address], [place] [address] Nov, [facility] [address] [id number] [address] [place] [address], [place] [address] October, [facility] [address] [id number] [address] [place] [address], [place] [address] October, [facility] [address] [id number] [address] [place] [address], [place] [address] October, [facility] [address] [id number] [address] [place] [address], [place] [address] October, [facility] [address] [id number] [address] [place] [address], [place] [address] October, [facility] [address] [id number] [address] [place] [address], [place] [address] Sep, [facility] [address] [id number] [address] [place] [address], [place] [address] Sep, [facility] [address] [id number] [address] [place] [address], [place] [address] Sep, [facility] [address] [id number] [address] [place] [address], [place] [address] Sep, [facility] [address] [id number] [address] [place] [address], [place] [address] Sep, [facility] [address] [id number] [address] [place] [address], [place] [address] Aug, [facility] [address] [id number] [address] [place] [address], [place] [address] Aug, [facility] [address] [id number] [address] [place] [address], [place] [address] Aug, [facility] [address] [id number] [address] [place] [address], [place] [address] Jul, [facility] [address] [id number] [address] [place] [address], [place] [address] Jul, [facility] [address] [id number] [address] [place] [address], [place] [address] Jul, [facility] [address] [id number] [address] [place] [address], [place] [address] Jul, [facility] [address] [id number] [address] [place] [address], [place] [address] 06 Jul, 2012 [facility] [address] [id number] [address] [place] [address], [place] [address] Jul, [facility] [address] [id number] [address] [place] [address], [place] [address] Jun, [facility] [address] [id number] [address] [place] [address], [place] [address] Apr, [facility] [address] [id number] [address] [place] [address], [place] [address] Apr, [facility] [address] [id number] [address] [place] [address], [place] [address] Apr, [facility] [address] [id number] [address] [place] [address], [place] [address] Apr, [facility] [address] [id number] [address] [place] [address], [place] [address] Mar, [facility] [address] [id number] [address] [place] [address], [place] [address] Mar, [facility] [address] [id number] [address] [place] [address], [place] [address] Mar, [facility] [address] [id number] [address] [place] [address], [place] [address] Mar, [facility] [address] [id number] [address] [place] [address], [place] [address] Mar, [facility] [address] [id number] [address] [place] [address], [place] [address] Feb, [facility] [address] [id number] [address] [place] [address], [place] [address] Jan, [facility] [address] [id number] [address] [place] [address], [place] [address] Jan, [facility] [address] [id number] [address] [place] [address], [place] [address] Jan, [facility] [address] [id number] [address] [place] [address] Dec, [facility] [address] [id number] [address] [place] [address] Nov, [facility] [address] [id number] [address] [place] [address] Nov, [facility] [address] [id number] [address] [place] [address] Nov, [facility] [address] [id number] [address] [place] [address] Nov, [facility] [address] [id number] [address] [place] [address] Nov, [facility] [address] [id number] [address] [place] [address] October, [facility] [address] [id number] [address] [place] [address] October, [facility] [address] [id number] [address] [place] [address] October, [facility] [address] [id number] [address] [place] [address] October, [facility] [address] [id number] [address] [place] [address] October, IMMUNIZATIONS Vaccine Route Administration Date Status B12, VITAMIN (UP TO 1000 MCG) IM Intramuscular December 25, 2016 A dministered SOCIAL HISTORY Never Assessed REASON FOR VISIT Left 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 , Pain in left foot, okay today, hurt so bad the other day could hard ly walk. PLAN OF CARE VITAL SIGNS Height 66 in 2016-12-25 Weight 257.6 lbs 2016-12-25 Temperature 98.1 degrees Fahrenheit 2016-12-25 Heart Rate 76 bpm 2016-12-25 Respiratory Rate 18 2016-12-25 BMI 41.57 kg/m2 2016-12-25 Blood pressure systolic 120 mmHg 2016-12-25 Blood pressure diastolic 78 mmHg 2016-12-25 MEDICATIONS Medication Instructions Dosage Frequency Start Date End Date Duration S tatus Chlorzoxazone 500 MG 1 tablet 12h Ac tive Omeprazole 40 mg 1 capsule 24h 30 Activ e Lisinopril 10 mg Orally Once a day 1/2 tablet 24h Active Hydrocodone-Acetaminophen 10-325 MG Orally 3 times a day 1 tablet a s needed 8h 20 Nov, 2016 28 days Active Calcium 500 mg Orally 3 times a day 1 tablet 8h Active Levothyroxine Sodium 50 MCG Orally Once a day 1 tablet on an empty stomach in the morning 24h Active Zolpidem Tartrate 10 MG Orally Once a day 1 tablet at bedtime 24h 28 days Active Multivital [place] Acti ve Loratadine 10 MG Orally Once a day 1 tablet 24h Active Cyanocobalamin 1000 MCG/ML Injection once monthly 1 ml Active RESULTS Name Result Date Reference Range RA (RHEUMATOID) FACTOR 2016-12-25 RA Latex Turbid. 13.3 0.0-13.9 PROCEDURES Procedure Date Ordered Result Body Site [facility] VISIT ESTABLISHED PATIENT December 25, 2016 THER/PROPH/DIAG INJ, SC/IM December 25, 2016 B12, VITAMIN (UP TO 1000 MCG) December 25, 2016 VENIPUNCT, ROUTINE* December 25, 2016 LAB NOT BILLED BY [facility] December 25, 2016 INSTRUCTIONS MEDICATIONS ADMINISTERED No Known Medications MEDICAL [...]
[2020-01-25] MEDS ORDERED: FAMOTIDINE 20MG/2ML IV (PEPCID) ONE (08:11)
[2020-01-25] MEDS ORDERED: SCOPOLAMINE 1.5 MG (TRANSDERM-SCOP) PATCH ONE (08:11)
--- OUTSIDE RECORDS SUMMARY | 2020-01-25 08:11 | XMS REPORT ---
Author Author Velma Javed Doctor Organization [facility] Address Unknown Phone Unavailable Care Team Providers Care Front Office Java Developer Name Role Phone Migration, Doctor Unavailable Unavailable PROBLEMS Type Condition ICD9-CM Code BCK84-EN Code Onset Dates Condition S tatus SNOMED Code Problem Corns L84 Active 189998738 Problem Primary insomnia F51.01 Active 397 2004 Problem Hyperparathyroidism E21.3 Active 35762358 Problem Hypercholesteremia E78.0 Active 1 4671146 Problem Mood disorder F39 Active 203186 05 Problem Arthritis M19.90 Active 4705111 Problem 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 Active 85111838 Problem Myalgia M79.1 Active 92147962 Problem Chronic kidney disease, stage 4 (severe) N18.4 Active 213019548 Problem Primary osteoarthritis of left knee M17.12 Active 297624676008898 Problem Irritable bowel syndrome with both constipation and diarrh ea K58.2 Active 65815703 Problem Other chronic pain G89.29 Active 8 1689048 Problem BPV (benign positional vertigo), bilateral H81.13 Active 669965690 Problem Hyperparathyroidism, unspecified E21.3 Active 87955942 Problem Parathyroid 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 Active 84685524 Problem Body mass index (BMI) of 40.0-44.9 in adult Z68.41 Active 911684212 Problem Unspecified kidney failure N19 Act chip 40899813 Problem 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 Active 702065658 Problem Unspecified inflammatory spo ndylopathy, sacral and sacrococcygeal region M46.98 Active 27544320 ALLERGIES No Information ENCOUNTERS Encounter Location Date Diagnosis [facility] [address] [facility] [id number] [address] [place] [id number] 27 Dec, 2019 Hyperparathyroidism, unspeci fied E21.3 [facility] [address] [facility] [id number] [address] [place] [phone] Dec, Hyperparathyroidism, unspeci fied E21.3 [place] [address] [facility] [id number] [address] [place] [phone] Dec, [facility] [address] [facility] [id number] [address] [place] [id number] Nov, Hyperparathyroidism, unspeci fied E21.3 [place] [address] [place] [id number] [address] [place] [address] Nov, Hyperparathyroidism, unspeci fied E21.3 [place] [address] [place] [id number] [address] [place] [address] Nov, Chronic kidney disease, stag e 4 (severe) N18.4 ; Hyperparathyroidism, unspecified E21.3 and Left otitis media with effusion H65.92 [place] [address] [place] [id number] [address] [place] [phone] Nov, Hyperparathyroidism, unspeci fied E21.3 [place] [address] [place] [id number] [address] [place] [address] October, [place] [address] [place] [id number] [address] [place] [address] October, Hyperparathyroidism, unspeci fied E21.3 [place] [address] [place] [id number] [address] [place] [address] October, Hyperparathyroidism, unspeci fied E21.3 [place] [address] [place] [id number] [address] [place] [address] Sep, Hyperparathyroidism, unspeci fied E21.3 [place] [address] [place] [id number] [address] [place] [address] Aug, Hyperparathyroidism, unspeci fied E21.3 [place] [address] [place] [id number] [address] [place] [address] Aug, Pain in left knee M25.562 ; Other chronic pain G89.29 ; Unspecified inflammatory spondylopathy, sacral and sacrococcygeal region M46.98 ; Chronic kidney disease, stage 4 (severe) N18.4 and Hyperparathyroidism, unspecified E21.3 [facility] [address] [id number] [address] [place] [phone] Jul, [facility] [address] [facility] [id number] [address] [place] [id number] Jul, Arthritis M19.90 [facility] [address] [facility] [id number] [address] [place] [address] Jun, Knee pain, left M25.562 [facility] [address] [id number] [address] [place] [address] May, Arthritis M19.90 [facility] [address] [facility] [id number] [address] [place] [id number] Apr, Well woman exam without gyne cological exam Z00.00 and Screening for breast cancer Z12.39 [place] [address] [facility] [id number] [address] [place] [address] Mar, Arthritis M19.90 [facility] [address] [facility] [id number] [address] [place] [id number] Mar, Arthritis M19.90 [facility] [address] [facility] [id number] [address] [place] [phone] Mar, [facility] [address] [facility] [id number] [address] [place] [address] Mar, Arthritis M19.90 and Encount er for immunization Z23 [facility] [address] [id number] [address] [place] [phone] Feb, Arthritis M19.90 [facility] [address] [facility] [id number] [address] [place] [phone] Feb, [facility] [address] [facility] [id number] [address] [place] [phone] Feb, Other specified disorders of bone density and structure, unspecified site M85.80 [place] [id number] [facility] [id number] [address] [place] [address] Jan, Arthritis M19.90 [facility] [address] [facility] [id number] [address] [place] [address] Dec, Arthritis M19.90 [facility] [address] [facility] [id number] [address] [place] [phone] Nov, Inflammatory spondylopathy o f sacral region M46.98 [facility] [address] [facility] [id number] [address] [place] [phone] Nov, [facility] [address] [facility] [id number] [address] [place] [address] Nov, Labyrinthitis of left ear H8 3.02 [facility] [address] [facility] [id number] [address] [place] [phone] 03 Nov, 2018 Arthritis M19.90 [facility] [address] [facility] [id number] [address] [place] [phone] Sep, Arthritis M19.90 [facility] [address] [facility] [id number] [address] [place] [phone] Sep, Renal insufficiency N28.9 an d Unspecified kidney failure N19 [facility] [address] [facility] [id number] [address] [place] [phone] Sep, Renal insufficiency N28.9 an d Unspecified kidney failure N19 [facility] [address] [facility] [id number] [address] [place] [address] Sep, Arthritis M19.90 [facility] [address] [facility] [id number] [address] [place] [address] Aug, Exercise counseling Z71.82 [facility] [address] [facility] [id number] [address] [place] [id number] Aug, [facility] [address] [facility] [id number] [address] [place] [address] Jul, Labyrinthitis of left ear H8 3.02 [place] [address] [place] [id number] [address] [place] [id number] 22 Jul, 2018 Labyrinthitis of left ear H8 3.02 [place] [address] [place] [id number] [address] [place] [address] 19 Jul, 2018 Exercise counseling Z71.82 [place] [address] [place] [id number] [address] [place] [id number] 18 Jul, 2018 [place] [address] [address] 14 Jul, 2018 Arthritis M19.90 [place] [address] [address] 13 Jul, 2018 Encounter for Medicare annua l wellness exam Z00.00 ; Chronic kidney disease, stage 4 (severe) N18.4 ; Body mass index (BMI) of 40.0-44.9 in adult Z68.41 ; Hyperparathyroidism E21.3 and BMI 40.0-44.9, adult Z68.41 [place] [address] [place] [id number] [address] [place] [address] 13 Jul, 2018 Encounter for Medicare annua l wellness exam Z00.00 ; Chronic kidney disease, stage 4 (severe) N18.4 ; Hyperparathyroidism E21.3 ; Body mass index (BMI) of 40.0-44.9 in adult Z68.41 and Encounter for immunization Z23 [place] [address] [place] [id number] [address] [place] [address] 11 Jul, 2018 Tail bone pain M53.3 [place] [address] [place] [id number] [address] [place] [address] Jun, Exercise counseling Z71.82 [place] [address] [place] [id number] [address] [place] [phone] Jun, Labyrinthitis of left ear H8 3.02 [place] [address] [place] [id number] [address] [place] [address] Jun, Tail bone pain M53.3 ; Irrit able bowel syndrome with both constipation and diarrhea K58.2 and Dysfunction of left eustachian tube H69.82 [facility] [address] [id number] [address] [place] [address] Jun, Exercise counseling Z71.82 [facility] [address] [id number] [address] [place] [address] Jun, Arthritis M19.90 [facility] [address] [id number] [address] [place] [address] Jun, Irritable bowel syndrome wit h both constipation and diarrhea K58.2 ; Tail bone pain M53.3 and Dysfunction of left eustachian tube H69.82 [facility] [address] [id number] [address] [place] [address] Jun, Exercise counseling Z71.82 [place] [id number] [id number] [address] [place] [address] Jun, Exercise counseling Z71.82 [facility] [address] [id number] [address] [place] [address] Jun, Labyrinthitis of left ear H8 3.02 [facility] [address] [id number] [address] [place] [phone] May, Exercise counseling Z71.82 [facility] [address] [id number] [address] [place] [address] May, Arthritis M19.90 [facility] [address] [id number] [address] [place] [id number] May, Exercise counseling Z71.82 [facility] [address] [id number] [address] [place] [address] May, Exercise counseling Z71.82 [facility] [address] [id number] [address] [place] [address] May, Labyrinthitis of left ear H8 3.02 [facility] [address] [id number] [address] [place] [address] May, Exercise counseling Z71.82 [facility] [address] [facility] [id number] [address] [place] [address] Apr, Arthritis M19.90 [facility] [address] [facility] [id number] [address] [place] [address] Apr, Exercise counseling Z71.82 [facility] [address] [facility] [id number] [address] [place] [address] Apr, Exercise counseling Z71.82 [place] [address] [place] [id number] [address] [place] [address] Apr, Primary osteoarthritis of le ft knee M17.12 [place] [address] [place] [id number] [address] [place] [address] Apr, Labyrinthitis of left ear H8 3.02 [place] [address] [place] [id number] [address] [place] [address] Mar, Arthritis M19.90 [facility] [address] [place] [id number] [address] [place] [address] Mar, [place] [address] [place] [id number] [place] [address] Mar, Chronic kidney disease, stag e 4 (severe) N18.4 [place] [address] [place] [id number] [address] [place] [address] Mar, Chronic kidney disease, stag e 4 (severe) N18.4 [place] [address] [place] [id number] [address] [place] [address] Mar, Labyrinthitis of left ear H8 3.02 [facility] [address] [place] [id number] [address] [place] [id number] 05 Mar, 2018 Chronic kidney disease, stag e 4 (severe) N18.4 ; Knee pain, left anterior M25.562 ; Deficiency of other specified B group vitamins E53.8 and Encounter for immunization Z23 [facility] [address] [place] [id number] [address] [place] [address] Mar, Arthritis M19.90 [facility] [address] [place] [id number] [address] [place] [address] Feb, Labyrinthitis of left ear H8 3.02 [facility] [address] [place] [id number] [place] [address] Feb, Arthritis M19.90 [place] [address] [place] [id number] [address] [place] [address] Jan, Labyrinthitis of left ear H8 3.02 [place] [address] [place] [id number] [address] [place] [address] Jan, Arthritis M19.90 [place] [address] [address] Dec, Labyrinthitis of left ear H8 3.02 [place] [address] [place] [id number] [address] [place] [address] Nov, Arthritis M19.90 [place] [address] [place] [id number] [place] [address] Nov, Labyrinthitis of left ear H8 3.02 [place] [address] [place] [id number] [address] [place] [address] Nov, BMI 40.0-44.9, adult Z68.41 ; Chronic kidney disease, stage 4 (severe) N18.4 and Acute right-sided thoracic back pain M54.6 [place] [address] [place] [id number] [address] [place] [address] October, Labyrinthitis of left ear H8 3.02 and Arthritis M19.90 [facility] [address] [place] [id number] [address] [place] [address] Sep, BPV (benign positional verti go), bilateral H81.13 ; Dysfunction of left eustachian tube H69.82 and BMI 40.0-44.9, adult Z68.41 [facility] [address] [facility] [id number] [address] [place] [address] Sep, Labyrinthitis of left ear H8 3.02 and Arthritis M19.90 [facility] [address] [facility] [id number] [address] [place] [address] Sep, [facility] [address] [facility] [id number] [address] [place] [phone] Sep, [facility] [address] [id number] [address] [place] [phone] Sep, Chronic kidney disease, stag e 4 (severe) N18.4 [facility] [address] [place] [id number] [address] [place] [address] Sep, Chronic kidney disease, stag e 4 (severe) N18.4 [facility] [address] [id number] [address] [place] [address] Aug, Labyrinthitis of left ear H8 3.02 and Arthritis M19.90 [facility] [address] [facility] [id number] [address] [place] [phone] Aug, [facility] [address] [facility] [id number] [address] [place] [address] Jul, [facility] [address] [facility] [id number] [address] [place] [address] Jul, Arthritis M19.90 and Labyrin thitis of left ear H83.02 [facility] [address] [facility] [id number] [address] [place] [address] Jul, [facility] [address] [facility] [id number] [address] [place] [address] Jun, [facility] [address] [facility] [id number] [address] [place] [address] Jun, Arthritis M19.90 and Labyrin thitis of left ear H83.02 [place] [address] [place] [id number] [address] [place] [address] Jun, Pre-op evaluation Z01.818 ; BMI 40.0-44.9, adult Z68.41 and Encounter for immunization Z23 [place] [address] [place] [id number] [address] [place] [phone] May, Arthritis M19.90 and Labyrin thitis of left ear H83.02 [place] [address] [place] [id number] [address] [place] [address] Apr, Labyrinthitis of left ear H8 3.02 [place] [address] [place] [id number] [place] [address] Apr, Arthritis M19.90 and Labyrin thitis of left ear H83.02 [place] [address] [address] Mar, Arthritis M19.90 and Labyrin thitis of left ear H83.02 [place] [address] [address] Mar, Chronic kidney disease, stag e 4 (severe) N18.4 [place] [address] [place] [id number] [address] [place] [address] Feb, Arthritis M19.90 and Labyrin thitis of left ear H83.02 [place] [address] [place] [id number] [address] [place] [address] Jan, Labyrinthitis of left ear H8 3.02 and Deficiency of other specified B group vitamins E53.8 [place] [address] [place] [id number] [address] [place] [address] Dec, Arthritis M19.90 [place] [address] [place] [id number] [address] [place] [address] Dec, BPV (benign positional verti go), bilateral H81.13 [facility] [address] [id number] [address] [place] [address] Dec, [facility] [address] [id number] [address] [place] [phone] Dec, [facility] [address] [facility] [id number] [address] [place] [address] Dec, [facility] [address] [id number] [address] [place] [id number] Nov, Arthritis M19.90 and Deficie ncy of other specified B group vitamins E53.8 [facility] [address] [id number] [address] [place] [address] Nov, Arthritis M19.90 [facility] [address] [facility] [id number] [address] [place] [address] Nov, Hyperparathyroidism E21.3 [facility] [address] [facility] [id number] [address] [place] [address] October, [facility] [address] [facility] [id number] [address] [place] [address] October, Hyperparathyroidism E21.3 [facility] [address] [facility] [id number] [address] [place] [phone] October, [facility] [address] [facility] [id number] [address] [place] [phone] October, Renal insufficiency N28.9 an d Hyperparathyroidism E21.3 [facility] [address] [id number] [address] [place] [phone] October, [facility] [address] [facility] [id number] [address] [place] [phone] October, Renal insufficiency N28.9 an d Hyperparathyroidism E21.3 [facility] [address] [facility] [id number] [address] [place] [phone] October, Arthritis M19.90 [facility] [address] [address] Sep, [facility] [address] [address] Sep, Lumbar neuritis M54.16 ; Tho racic abscess J86.9 and Deficiency of other specified B group vitamins E53.8 [facility] [address] [address] Sep, [facility] [address] [address] Aug, Arthritis M19.90 [facility] [address] [address] Aug, Hyperparathyroidism E21.3 [facility] [address] [address] Aug, Hyperparathyroidism E21.3 [facility] [address] [address] Aug, Arthritis M19.90 [facility] [address] [address] Jul, Mass of throat R22.1 [facility] [address] [address] Jul, [facility] [address] [address] Jul, Arthritis M19.90 [facility] [address] [address] Jun, Arthritis M19.90 [facility] [address] [address] Jun, [facility] [address] [address] Jun, Renal insufficiency N28.9 an d Parathyroid abnormality E21.5 [facility] [address] [id number] 05 Jun, 2016 Medicare welcome exam Z00.00 ; Encounter for immunization Z23 ; Arthritis M19.90 ; Medicare annual wellness visit, initial Z00.00 ; Medicare annual wellness visit, subsequent Z00.00 and Deficiency of other specified B group vitamins E53.8 [facility] [address] [id number] 29 May, 2016 Renal insufficiency N28.9 an d Parathyroid abnormality E21.5 [facility] [address] [id number] 19 May, 2016 Renal insufficiency N28.9 [facility] [address] [address] May, Renal insufficiency N28.9 [facility] [address] [address] May, [facility] [address] [address] Apr, [facility] [address] [place] [id number] [address] [place] [id number] Apr, [facility] [address] [address] Apr, Mass of throat R22.1 [facility] [address] [place] [id number] [address] [place] [address] Apr, [facility] [address] [place] [id number] [address] [place] [id number] Apr, Mass of throat R22.1 [facility] [address] [place] [id number] [address] [place] [id number] Apr, Mass of throat R22.1 [facility] [address] [place] [id number] [address] [place] [id number] Mar, [facility] [address] [address] Mar, [facility] [address] [id number] [address] [place] [id number] Mar, [facility] [address] [id number] [address] [place] [id number] Mar, Parathyroid abnormality E21. 5 and Encounter for immunization Z23 [facility] [address] [id number] [address] [place] [id number] Mar, [facility] [address] [id number] [address] [place] [id number] Mar, [facility] [address] [id number] [address] [place] [id number] 21 Feb, 2016 Renal insufficiency N28.9 an d Hyperparathyroidism E21.3 [facility] [address] [id number] [address] [place] [address] 19 Feb, 2016 [facility] [address] [id number] [address] [place] [address] 15 Feb, 2016 Renal insufficiency N28.9 an d Hyperparathyroidism E21.3 [facility] [address] [id number] [address] [place] [address] 14 Feb, 2016 [facility] [address] [id number] [address] [place] [address] Feb, [facility] [address] [id number] [address] [place] [address] Feb, [facility] [address] [id number] [address] [place] [address] Jan, [facility] [address] [id number] [address] [place] [address] Jan, Arthritis M19.90 ; Lumbago w ith sciatica, right side M54.41 and Other chronic pain G89.29 [facility] [address] [id number] [address] [place] [address] Jan, [facility] [address] [id number] [address] [place] [address] 18 Dec, 2015 Arthritis M19.90 ; Lumbago w ith sciatica, right side M54.41 and Other chronic pain G89.29 [facility] [id number] [place] [address] 16 Nov, 2015 Deficiency of other specifie d B group vitamins E53.8 ; Primary insomnia F51.01 ; Mood disorder F39 and Lumbago with sciatica, right side M54.41 [facility] [address] [address] 13 Nov, 2015 Hyperparathyroidism E21.3 [facility] [address] [address] Nov, Unspecified kidney failure N 19 and Hyperparathyroidism E21.3 [facility] [address] [address] October, Hyperparathyroidism E21.3 [facility] [address] [address] October, [facility] [address] [address] October, Hyperparathyroidism E21.3 [facility] [address] [id number] [place] [address] October, Hyperparathyroidism E21.3 [facility] [address] [address] Sep, Hyperparathyroidism E21.3 ; Hypercholesterolemia E78.0 and Arthritis M19.90 [facility] [address] [id number] [address] [place] [address] Aug, [facility] [address] [address] Aug, Deficiency of other specifie d B group vitamins E53.8 [facility] [address] [place] [id number] [address] [place] [address] Aug, [facility] [address] [id number] [address] [place] [address] Jul, Urinary frequency R35.0 [facility] [address] [id number] [address] [place] [address] Jul, Urinary frequency R35.0 [facility] [address] [facility] [id number] [address] [place] [address] Jul, [facility] [address] [facility] [id number] [address] [place] [address] Jul, [facility] [address] [facility] [id number] [address] [place] [address] Jun, Pain in left knee M25.562 [facility] [address] [facility] [id number] [address] [place] [address] Jun, [facility] [address] [facility] [id number] [address] [place] [address] May, Swelling of left knee joint M25.462 [facility] [address] [facility] [id number] [address] [place] [address] May, [facility] [address] [facility] [id number] [address] [place] [address] May, [facility] [address] [facility] [id number] [address] [place] [address] May, [facility] [address] [facility] [id number] [address] [place] [address] Apr, Renal insufficiency N28.9 an d Chronic kidney disease, stage 4 (severe) N18.4 [facility] [address] [facility] [id number] [address] [place] [address] Apr, Unspecified kidney failure N 19 [facility] [address] [facility] [id number] [address] [place] [address] Apr, Unspecified kidney failure N 19 [facility] [address] [facility] [id number] [address] [place] [address] Apr, [facility] [address] [facility] [id number] [address] [place] [address] Apr, Hyperparathyroidism, unspeci fied 252.00 [facility] [address] [facility] [id number] [address] [place] [address] Apr, [facility] [address] [place] [id number] [address] [place] [address] Mar, [facility] [address] [facility] [id number] [address] [place] [address] Mar, [facility] [id number] [place] [address] Mar, Hyperparathyroidism, unspeci fied 252.00 [facility] [address] [id number] [address] [place] [address] Feb, [facility] [address] [facility] [id number] [address] [place] [address] Feb, Otalgia 388.70 [facility] [address] [address] Feb, [facility] [address] [address] Feb, [facility] [address] [id number] [address] [place] [address] Jan, [facility] [address] [facility] [id number] [address] [place] [address] Jan, Hyperparathyroidism, unspeci fied 252.00 [facility] [address] [facility] [id number] [address] [place] [address] Jan, [facility] [address] [id number] [place] [address] Jan, Other B-complex deficiencies 266.2 and Hyperparathyroidism, unspecified 252.00 [facility] [address] [id number] [address] [place] [address] Jan, [facility] [address] [id number] [address] [place] [address] Jan, [facility] [address] [id number] [address] [place] [address] Jan, [facility] [address] [id number] [address] [place] [address] Dec, [facility] [address] [id number] [address] [place] [address] Dec, [facility] [address] [id number] [address] [place] [address] Dec, [facility] [address] [id number] [address] [place] [address] Nov, Routine check-up V70.0 and P re-op exam V72.84 [facility] [address] [id number] [address] [place] [phone] Nov, [facility] [address] [id number] [address] [place] [address] Nov, [facility] [address] [id number] [address] [place] [address] October, [facility] [address] [id number] [address] [place] [address] October, Other B-complex deficiencies 266.2 [facility] [address] [id number] [address] [place] [address] October, [facility] [address] [id number] [address] [place] [address] Sep, [facility] [address] [id number] [address] [place] [address] Sep, [facility] [address] [id number] [address] [place] [address] Aug, [facility] [address] [id number] [address] [place] [address], [place] [address] 20 Aug, 2014 [facility] [address] [id number] [address] [place] [address], [place] [address] 17 Aug, 2014 [facility] [address] [id number] [address] [place] [address], [place] [address] 17 Aug, 2014 [facility] [address] [id number] [address] [place] [address], [place] [address] 11 Aug, 2014 [facility] [address] [id number] [address] [place] [address], [place] [address] 11 Aug, 2014 [facility] [address] [id number] [address] [place] [address], [place] [address] 18 Jul, 2014 [facility] [address] [id number] [address] [place] [address], [place] [address] 18 Jul, 2014 [facility] [address] [id number] [address] [place] [address], [place] [address] 17 Jul, 2014 [facility] [address] [id number] [address] [place] [address], [place] [address] 17 Jul, 2014 [facility] [address] [id number] [address] [place] [address], [place] [address] 12 Jul, 2014 [facility] [address] [id number] [address] [place] [address], [place] [address] 12 Jul, 2014 [facility] [address] [id number] [address] [place] [address], [place] [address] 10 Jul, 2014 [facility] [address] [id number] [address] [place] [address], [place] [address] 10 Jul, 2014 [facility] [address] [id number] [address] [place] [address], [place] [address] 09 Jul, 2014 [facility] [address] [id number] [address] [place] [address], [place] [address] 09 Jul, 2014 [facility] [address] [id number] [address] [place] [address], [place] [address] Jul, [facility] [address] [id number] [address] [place] [address], [place] [address] Jul, [facility] [address] [id number] [address] [place] [address], [place] [address] Jul, [facility] [address] [id number] [address] [place] [address], [place] [address] Jul, [facility] [address] [id number] [address] [place] [address], [place] [address] Jun, [facility] [address] [id number] [address] [place] [address], [place] [address] Jun, [facility] [address] [id number] [address] [place] [address], [place] [address] Jun, [facility] [address] [id number] [address] [place] [address], [place] [address] Jun, [facility] [address] [id number] [address] [place] [address], [place] [address] Jun, [facility] [address] [id number] [address] [place] [address], [place] [address] Jun, [facility] [address] [id number] [address] [place] [address], [place] [address] Jun, [facility] [address] [id number] [address] [place] [address], [place] [address] Jun, [facility] [address] [id number] [address] [place] [address], [place] [address] Jun, [facility] [address] [id number] [address] [place] [address], [place] [address] Jun, [facility] [address] [id number] [address] [place] [address], [place] [address] Jun, [facility] [address] [id number] [address] [place] [address], [place] [address] Jun, [facility] [address] [id number] [address] [place] [address], [place] [address] Jun, [facility] [address] [id number] [address] [place] [address], [place] [address] Jun, [facility] [address] [id number] [address] [place] [address], [place] [address] May, [facility] [address] [id number] [address] [place] [address], [place] [address] May, [facility] [address] [id number] [address] [place] [address], [place] [address] May, [facility] [address] [id number] [address] [place] [address], [place] [address] May, [facility] [address] [id number] [address] [place] [address], [place] [address] Apr, [facility] [address] [id number] [address] [place] [address], [place] [address] Apr, [facility] [address] [id number] [address] [place] [address], [place] [address] Apr, [facility] [address] [id number] [address] [place] [address], [place] [address] Apr, [facility] [address] [id number] [address] [place] [address], [place] [address] Apr, [facility] [address] [id number] [address] [place] [address], [place] [address] Apr, [facility] [address] [id number] [address] [place] [address], [place] [address] Mar, [facility] [address] [id number] [address] [place] [address], [place] [address] Mar, [facility] [address] [id number] [address] [place] [address], [place] [address] Mar, [facility] [address] [id number] [address] [place] [address], [place] [address] Mar, [facility] [address] [id number] [address] [place] [address], [place] [address] 15 Mar, 2014 [facility] [address] [id number] [address] [place] [address], [place] [address] 15 Mar, 2014 [facility] [address] [id number] [address] [place] [address], [place] [address] 13 Mar, 2014 [facility] [address] [id number] [address] [place] [address], [place] [address] 13 Mar, 2014 [facility] [address] [id number] [address] [place] [address], [place] [address] 07 Mar, 2014 [facility] [address] [id number] [address] [place] [address], [place] [address] 07 Mar, 2014 [facility] [address] [id number] [address] [place] [address], [place] [address] Mar, [facility] [address] [id number] [address] [place] [address], [place] [address] 07 Mar, 2014 [facility] [address] [id number] [address] [place] [address], [place] [address] 06 Mar, 2014 [facility] [address] [id number] [address] [place] [address] 26 Feb, 2013 [facility] [address] [id number] [address] [place] [address] 26 Feb, 2013 [facility] [address] [id number] [address] [place] [address] 23 Feb, 2013 [facility] [address] [id number] [address] [place] [address], [place] [address] 23 Feb, 2013 [facility] [address] [id number] [address] [place] [address], [place] [address] 19 Feb, 2013 [facility] [address] [id number] [address] [place] [address] 19 Feb, 2013 [facility] [address] [id number] [address] [place] [address] 13 Feb, 2014 [facility] [address] [id number] [address] [place] [address], [place] [address] 13 Feb, 2014 [facility] [address] [id number] [address] [place] [address], [place] [address] 12 Feb, 2014 [facility] [address] [id number] [address] [place] [address], [place] [address] Feb, [facility] [address] [id number] [address] [place] [address], [place] [address] Jan, [facility] [address] [id number] [address] [place] [address], [place] [address] Jan, [facility] [address] [id number] [address] [place] [address], [place] [address] Dec, [facility] [address] [id number] [address] [place] [address], [place] [address] Dec, [facility] [address] [id number] [address] [place] [address], [place] [address] Dec, [facility] [address] [id number] [address] [place] [address], [place] [address] Dec, [facility] [address] [id number] [address] [place] [address], [place] [address] Dec, [facility] [address] [id number] [address] [place] [address], [place] [address] Dec, [facility] [address] [id number] [address] [place] [address], [place] [address] Nov, [facility] [address] [id number] [address] [place] [address], [place] [address] Nov, [facility] [address] [id number] [address] [place] [address], [place] [address] Nov, [facility] [address] [id number] [address] [place] [address], [place] [address] Nov, [facility] [address] [id number] [facility] [address] October, [facility] [address] [id number] [facility] [address] October, [facility] [address] [id number] [facility] [address] October, [facility] [address] [id number] [address] [place] [address], [place] [address] October, [facility] [address] [id number] [facility] [address] October, [facility] [address] [id number] [address] [place] [address], [place] [address] October, [facility] [address] [id number] [address] [place] [address], [place] [address] October, [facility] [address] [id number] [address] [place] [address], [place] [address] October, [facility] [address] [id number] [address] [place] [address], [place] [address] October, [facility] [address] [id number] [address] [place] [address], [place] [address] October, [facility] [address] [id number] [address] [place] [address], [place] [address] October, [facility] [address] [id number] [address] [place] [address], [place] [address] October, [facility] [address] [id number] [address] [place] [address], [place] [address] October, [facility] [address] [id number] [address] [place] [address], [place] [address] October, [facility] [address] [id number] [address] [place] [address], [place] [address] October, [facility] [address] [id number] [address] [place] [address] [address] October, [facility] [address] [id number] [facility] [address] Sep, [facility] [address] [id number] [address] [place] [address], [place] [address] Sep, [facility] [address] [id number] [address] [place] [address], [place] [address] Sep, [facility] [address] [id number] [address] [place] [address], [place] [address] Sep, [facility] [address] [id number] [address] [place] [address], [place] [address] Sep, [facility] [address] [id number] [address] [place] [address], [place] [address] Sep, [facility] [address] [id number] [address] [place] [address], [place] [address] Aug, [facility] [address] [id number] [address] [place] [address], [place] [address] Aug, [facility] [address] [id number] [address] [place] [address], [place] [address] Aug, [facility] [address] [id number] [address] [place] [address], [place] [address] Aug, [facility] [address] [id number] [address] [place] [address], [place] [address] Aug, [facility] [address] [id number] [address] [place] [address], [place] [address] Aug, [facility] [address] [id number] [address] [place] [address], [place] [address] Jul, [facility] [address] [id number] [address] [place] [address], [place] [address] Jul, [facility] [address] [id number] [address] [place] [address], [place] [address] Jul, [facility] [address] [id number] [address] [place] [address], [place] [address] 03 Jul, 2013 [facility] [address] [id number] [address] [place] [address], [place] [address] Jun, [facility] [address] [id number] [address] [place] [address], [place] [address] Jun, [facility] [address] [id number] [address] [place] [address], [place] [address] May, [facility] [address] [id number] [address] [place] [address], [place] [address] May, [facility] [address] [id number] [address] [place] [address], [place] [address] May, [facility] [address] [id number] [address] [place] [address], [place] [address] May, [facility] [address] [id number] [address] [place] [address], [place] [address] May, [facility] [address] [id number] [address] [place] [address], [place] [address] Apr, [facility] [address] [id number] [address] [place] [address], [place] [address] Apr, [facility] [address] [id number] [address] [place] [address], [place] [address] Apr, [facility] [address] [id number] [address] [place] [address], [place] [address] Apr, [facility] [address] [id number] [address] [place] [address], [place] [address] Apr, [facility] [address] [id number] [address] [place] [address], [place] [address] Apr, [facility] [address] [id number] [address] [place] [address], [place] [address] 15 Mar, 2013 [facility] [address] [id number] [address] [place] [address], [place] [address] 15 Mar, 2013 [facility] [address] [id number] [address] [place] [address], [place] [address] 14 Mar, 2013 [facility] [address] [id number] [address] [place] [address], [place] [address] 14 Mar, 2013 [facility] [address] [id number] [address] [place] [address], [place] [address] 11 Mar, 2013 [facility] [address] [id number] [address] [place] [address], [place] [address] 11 Mar, 2013 [facility] [address] [id number] [address] [place] [address], [place] [address] 23 Feb, 2013 [facility] [address] [id number] [address] [place] [address], [place] [address] Feb, [facility] [address] [id number] [address] [place] [address], [place] [address] Feb, [facility] [address] [id number] [address] [place] [address], [place] [address] Jan, [facility] [address] [id number] [address] [place] [address], [place] [address] Jan, [facility] [address] [id number] [address] [place] [address], [place] [address] Jan, [facility] [address] [id number] [address] [place] [address], [place] [address] Jan, [facility] [address] [id number] [address] [place] [address] Jan, [facility] [address] [id number] [address] [place] [address], [place] [address] Jan, [facility] [address] [id number] [address] [place] [address], [place] [address] Dec, [facility] [address] [id number] [address] [place] [address], [place] [address] Dec, [facility] [address] [id number] [address] [place] [address] Dec, [facility] [address] [id number] [address] [place] [address], [place] [address] Dec, [facility] [address] [id number] [address] [place] [address], [place] [address] Dec, [facility] [address] [id number] [address] [place] [address], [place] [address] Dec, [facility] [address] [id number] [address] [place] [address], [place] [address] Nov, [facility] [address] [id number] [address] [place] [address], [place] [address] Nov, [facility] [address] [id number] [address] [place] [address], [place] [address] Nov, [facility] [address] [id number] [address] [place] [address], [place] [address] Nov, [facility] [address] [id number] [address] [place] [address], [place] [address] Nov, [facility] [address] [id number] [address] [place] [address], [place] [address] Nov, [facility] [address] [id number] [address] [place] [address], [place] [address] October, [facility] [address] [id number] [address] [place] [address], [place] [address] October, [facility] [address] [id number] [address] [place] [address], [place] [address] October, [facility] [address] [id number] [address] [place] [address], [place] [address] October, [facility] [address] [id number] [address] [place] [address], [place] [address] October, [facility] [address] [id number] [address] [place] [address], [place] [address] Sep, [facility] [address] [id number] [address] [place] [address], [place] [address] 23 Sep, 2012 [facility] [address] [id number] [address] [place] [address], [place] [address] Sep, [facility] [address] [id number] [address] [place] [address], [place] [address] 18 Sep, 2012 [facility] [address] [id number] [address] [place] [address], [place] [address] 09 Sep, 2012 [facility] [address] [id number] [address] [place] [address], [place] [address] 26 Aug, 2012 [facility] [address] [id number] [address] [place] [address], [place] [address] 07 Aug, 2012 [facility] [address] [id number] [address] [place] [address], [place] [address] 04 Aug, 2012 [facility] [address] [id number] [address] [place] [address], [place] [address] Jul, [facility] [address] [id number] [address] [place] [address], [place] [address] Jul, [facility] [address] [id number] [address] [place] [address], [place] [address] Jul, [facility] [address] [id number] [address] [place] [address], [place] [address] 08 Jul, 2012 [facility] [address] [id number] [address] [place] [address], [place] [address] 06 Jul, 2012 [facility] [address] [id number] [address] [place] [address], [place] [address] 05 Jul, 2012 [facility] [address] [id number] [address] [place] [address], [place] [address] 15 Jun, 2012 [facility] [address] [id number] [address] [place] [address], [place] [address] 16 Apr, 2012 [facility] [address] [id number] [address] [place] [address] Apr, [facility] [address] [id number] [address] [place] [address], [place] [address] Apr, [facility] [address] [id number] [address] [place] [address] Apr, [facility] [address] [id number] [address] [place] [address], [place] [address] Mar, [facility] [address] [id number] [address] [place] [address] Mar, [facility] [address] [id number] [address] [place] [address], [place] [address] Mar, [facility] [address] [id number] [address] [place] [address], [place] [address] Mar, [facility] [address] [id number] [address] [place] [address], [place] [address] Mar, [facility] [address] [id number] [address] [place] [address], [place] [address] Feb, [facility] [address] [id number] [address] [place] [address] Jan, [facility] [address] [id number] [address] [place] [address] Jan, [facility] [address] [id number] [address] [place] [address] Jan, [facility] [address] [id number] [address] [place] [address] Dec, [facility] [address] [id number] [address] [place] [address], [place] [address] Nov, [facility] [address] [id number] [address] [place] [address] Nov, [facility] [address] [id number] [address] [place] [address], [place] [address] Nov, [facility] [address] [id number] [address] [place] [address] 07 Nov, 2011 [facility] [address] [facility] [id number] [address] [place] [address] Nov, [facility] [address] [facility] [id number] [address] [place] [address] October, [facility] [address] [facility] [id number] [address] [place] [address] October, [facility] [address] [facility] [id number] [address] [place] [address] October, [facility] [address] [facility] [id number] [address] [place] [address] October, [facility] [address] [facility] [id number] [address] [place] [address] October, IMMUNIZATIONS No Known Immunizations SOCIAL HISTORY [...]
--- OUTSIDE RECORDS SUMMARY | 2020-01-25 08:11 | XMS REPORT ---
Author Author Velma CORDERO Organization [facility] Address [address] [place] [address] Care Team Providers Care Access Rn Name Role Phone STEPHAN CORDERO Unavailable PROBLEMS Type Condition ICD9-CM Code [id number] Code Onset Dates Condition S tatus SNOMED Code Problem Corns L84 Active 556442670 Problem Primary insomnia F51.01 Active 397 2004 Problem Hyperparathyroidism E21.3 Active 23012700 Problem Hypercholesteremia E78.0 Active 1 4964009 Problem Mood disorder F39 Active 018020 05 Problem Arthritis M19.90 Active 7987006 Problem 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 Active 85797926 Problem Myalgia M79.1 Active 16159583 Problem Chronic kidney disease, stage 4 (severe) N18.4 Active 365549071 Problem Primary osteoarthritis of left knee M17.12 Active [id number] Problem Irritable bowel syndrome with both constipation and diarrh ea K58.2 Active 30716094 Problem Other chronic pain G89.29 Active 8 0939623 Problem BPV (benign positional vertigo), bilateral H81.13 Active 052148679 Problem Hyperparathyroidism, unspecified E21.3 Active 29501414 Problem Parathyroid abnormality E21.5 Active 88987100 Problem Body mass index (BMI) of 40.0-44.9 in adult Z68.41 Active 144185214 Problem Unspecified kidney failure N19 Act chip 04530318 Problem 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 Active 717148284 Problem Unspecified inflammatory spo ndylopathy, sacral and sacrococcygeal region M46.98 Active 40070393 ALLERGIES No Information ENCOUNTERS Encounter Location Date Diagnosis [facility] [address] [facility] [id number] [address] [place] [address] Dec, Hyperparathyroidism, unspeci fied E21.3 [facility] [address] [facility] [id number] [address] [place] [address] Dec, Hyperparathyroidism, unspeci fied E21.3 [facility] [address] [id number] [address] [place] [address] Dec, [facility] [address] [facility] [id number] [address] [place] [address] Nov, Hyperparathyroidism, unspeci fied E21.3 [facility] [address] [facility] [id number] [address] [place] [address] Nov, Hyperparathyroidism, unspeci fied E21.3 [facility] [address] [facility] [id number] [address] [place] [address] Nov, Chronic kidney disease, stag e 4 (severe) N18.4 ; Hyperparathyroidism, unspecified E21.3 and Left otitis media with effusion H65.92 [place] [address] [facility] [id number] [address] [place] [address] Nov, Hyperparathyroidism, unspeci fied E21.3 [facility] [address] [facility] [id number] [address] [place] [address] October, [facility] [address] [facility] [id number] [address] [place] [address] October, Hyperparathyroidism, unspeci fied E21.3 [facility] [address] [facility] [id number] [address] [place] [address] October, Hyperparathyroidism, unspeci fied E21.3 [facility] [address] [facility] [id number] [address] [place] [address] Sep, Hyperparathyroidism, unspeci fied E21.3 [facility] [address] [facility] [id number] [address] [place] [address] Aug, Hyperparathyroidism, unspeci fied E21.3 [facility] [address] [facility] [id number] [address] [place] [address] Aug, Pain in left knee M25.562 ; Other chronic pain G89.29 ; Unspecified inflammatory spondylopathy, sacral and sacrococcygeal region M46.98 ; Chronic kidney disease, stage 4 (severe) N18.4 and Hyperparathyroidism, unspecified E21.3 [facility] [address] [id number] [address] [place] [address] Jul, [facility] [address] [id number] [address] [place] [address] Jul, Arthritis M19.90 [facility] [address] [id number] [address] [place] [address] Jun, Knee pain, left M25.562 [place] [address] [id number] [address] [place] [address] May, Arthritis M19.90 [place] [address] [facility] [id number] [address] [place] [address] Apr, Well woman exam without gyne cological exam Z00.00 and Screening for breast cancer Z12.39 [place] [address] [id number] [address] [place] [address] Mar, Arthritis M19.90 [place] [address] [facility] [id number] [address] [place] [address] Mar, Arthritis M19.90 [facility] [address] [facility] [id number] [address] [place] [address] Mar, [facility] [address] [facility] [id number] [address] [place] [address] Mar, Arthritis M19.90 and Encount er for immunization Z23 [facility] [address] [id number] [address] [place] [address] Feb, Arthritis M19.90 [facility] [address] [facility] [id number] [address] [place] [address] Feb, [facility] [address] [facility] [id number] [address] [place] [address] Feb, Other specified disorders of bone density and structure, unspecified site M85.80 [facility] [address] [facility] [id number] [address] [place] [address] Jan, Arthritis M19.90 [facility] [address] [facility] [id number] [address] [place] [address] Dec, Arthritis M19.90 [facility] [address] [facility] [id number] [address] [place] [address] Nov, Inflammatory spondylopathy o f sacral region M46.98 [facility] [address] [facility] [id number] [address] [place] [address] Nov, [facility] [address] [place] [id number] [address] [place] [address] Nov, Labyrinthitis of left ear H8 3.02 [facility] [address] [facility] [id number] [address] [place] [address] Nov, Arthritis M19.90 [facility] [address] [facility] [id number] [address] [place] [address] 15 Sep, 2018 Arthritis M19.90 [facility] [address] [facility] [id number] [address] [place] [address] Sep, Renal insufficiency N28.9 an d Unspecified kidney failure N19 [facility] [address] [facility] [id number] [address] [place] [address] Sep, Renal insufficiency N28.9 an d Unspecified kidney failure N19 [facility] [address] [facility] [id number] [address] [place] [address] Sep, Arthritis M19.90 [facility] [address] [facility] [id number] [address] [place] [address] Aug, Exercise counseling Z71.82 [facility] [address] [facility] [id number] [address] [place] [address] Aug, [facility] [address] [place] [id number] [address] [place] [address] Jul, Labyrinthitis of left ear H8 3.02 [facility] [address] [facility] [id number] [address] [place] [address] 22 Jul, 2018 Labyrinthitis of left ear H8 3.02 [facility] [address] [facility] [id number] [address] [place] [address] 19 Jul, 2018 Exercise counseling Z71.82 [place] [address] [facility] [id number] [address] [place] [address] 18 Jul, 2018 [place] [address] [facility] [id number] [address] [place] [address] 14 Jul, 2018 Arthritis M19.90 [place] [address] [facility] [id number] [address] [place] [address] 13 Jul, 2018 Encounter for Medicare annua l wellness exam Z00.00 ; Chronic kidney disease, stage 4 (severe) N18.4 ; Body mass index (BMI) of 40.0-44.9 in adult Z68.41 ; Hyperparathyroidism E21.3 and BMI 40.0-44.9, adult Z68.41 [place] [id number] [place] [address] 13 Jul, 2018 Encounter for Medicare annua l wellness exam Z00.00 ; Chronic kidney disease, stage 4 (severe) N18.4 ; Hyperparathyroidism E21.3 ; Body mass index (BMI) of 40.0-44.9 in adult Z68.41 and Encounter for immunization Z23 [facility] [address] [facility] [id number] [address] [place] [address] 11 Jul, 2018 Tail bone pain M53.3 [place] [address] [facility] [id number] [address] [place] [address] Jun, Exercise counseling Z71.82 [place] [address] [facility] [id number] [address] [place] [address] Jun, Labyrinthitis of left ear H8 3.02 [place] [address] [place] [id number] [address] [place] [address] Jun, Tail bone pain M53.3 ; Irrit able bowel syndrome with both constipation and diarrhea K58.2 and Dysfunction of left eustachian tube H69.82 [facility] [address] [id number] [address] [place] [address] Jun, Exercise counseling Z71.82 [facility] [address] [id number] [address] [place] [address] Jun, Arthritis M19.90 [facility] [address] [id number] [address] [place] [address] Jun, Irritable bowel syndrome wit h both constipation and diarrhea K58.2 ; Tail bone pain M53.3 and Dysfunction of left eustachian tube H69.82 [facility] [address] [id number] [address] [place] [address] Jun, Exercise counseling Z71.82 [facility] [address] [id number] [address] [place] [address] Jun, Exercise counseling Z71.82 [facility] [address] [id number] [address] [place] [address] Jun, Labyrinthitis of left ear H8 3.02 [facility] [address] [id number] [address] [place] [address] May, Exercise counseling Z71.82 [facility] [address] [id number] [address] [place] [address] May, Arthritis M19.90 [facility] [address] [id number] [address] [place] [address] May, Exercise counseling Z71.82 [facility] [address] [id number] [address] [place] [address] May, Exercise counseling Z71.82 [facility] [address] [id number] [address] [place] [address] May, Labyrinthitis of left ear H8 3.02 [facility] [address] [id number] [address] [place] [address] May, Exercise counseling Z71.82 [facility] [address] [id number] [address] [place] [address] Apr, Arthritis M19.90 [facility] [address] [id number] [address] [place] [address] Apr, Exercise counseling Z71.82 [facility] [address] [id number] [address] [place] [address] Apr, Exercise counseling Z71.82 [facility] [address] [id number] [address] [place] [address] Apr, Primary osteoarthritis of le ft knee M17.12 [facility] [address] [id number] [address] [place] [address] Apr, Labyrinthitis of left ear H8 3.02 [facility] [address] [id number] [address] [place] [address] Mar, Arthritis M19.90 [facility] [address] [id number] [address] [place] [address] Mar, [facility] [address] [id number] [address] [place] [address] Mar, Chronic kidney disease, stag e 4 (severe) N18.4 [facility] [address] [id number] [address] [place] [address] Mar, Chronic kidney disease, stag e 4 (severe) N18.4 [facility] [address] [id number] [address] [place] [address] Mar, Labyrinthitis of left ear H8 3.02 [facility] [address] [id number] [address] [place] [address] 05 Mar, 2018 Chronic kidney disease, stag e 4 (severe) N18.4 ; Knee pain, left anterior M25.562 ; Deficiency of other specified B group vitamins E53.8 and Encounter for immunization Z23 [facility] [address] [address] Mar, Arthritis M19.90 [facility] [address] [address] Feb, Labyrinthitis of left ear H8 3.02 [facility] [address] [address] Feb, Arthritis M19.90 [place] [address] [address] Jan, Labyrinthitis of left ear H8 3.02 [place] [address] [address] Jan, Arthritis M19.90 [place] [address] [address] Dec, Labyrinthitis of left ear H8 3.02 [place] [address] [address] Nov, Arthritis M19.90 [place] [address] [address] Nov, Labyrinthitis of left ear H8 3.02 [place] [address] [address] Nov, BMI 40.0-44.9, adult Z68.41 ; Chronic kidney disease, stage 4 (severe) N18.4 and Acute right-sided thoracic back pain M54.6 [place] [address] [address] October, Labyrinthitis of left ear H8 3.02 and Arthritis M19.90 [place] [address] [address] Sep, BPV (benign positional verti go), bilateral H81.13 ; Dysfunction of left eustachian tube H69.82 and BMI 40.0-44.9, adult Z68.41 [facility] [address] [id number] [address] [place] [address] Sep, Labyrinthitis of left ear H8 3.02 and Arthritis M19.90 [facility] [address] [id number] [address] [place] [address] Sep, [facility] [address] [id number] [address] [place] [address] Sep, [facility] [address] [facility] [id number] [address] [place] [address] Sep, Chronic kidney disease, stag e 4 (severe) N18.4 [facility] [address] [facility] [id number] [address] [place] [address] Sep, Chronic kidney disease, stag e 4 (severe) N18.4 [facility] [address] [id number] [address] [place] [address] Aug, Labyrinthitis of left ear H8 3.02 and Arthritis M19.90 [facility] [address] [id number] [address] [place] [address] Aug, [facility] [address] [id number] [address] [place] [address] Jul, [facility] [address] [id number] [address] [place] [address] Jul, Arthritis M19.90 and Labyrin thitis of left ear H83.02 [facility] [address] [facility] [id number] [address] [place] [address] Jul, [facility] [address] [id number] [address] [place] [address] Jun, [facility] [address] [place] [address] Jun, Arthritis M19.90 and Labyrin thitis of left ear H83.02 [place] [address] [address] Jun, Pre-op evaluation Z01.818 ; BMI 40.0-44.9, adult Z68.41 and Encounter for immunization Z23 [place] [address] [address] May, Arthritis M19.90 and Labyrin thitis of left ear H83.02 [place] [address] [address] Apr, Labyrinthitis of left ear H8 3.02 [place] [address] [address] Apr, Arthritis M19.90 and Labyrin thitis of left ear H83.02 [place] [address] [address] Mar, Arthritis M19.90 and Labyrin thitis of left ear H83.02 [place] [address] [address] Mar, Chronic kidney disease, stag e 4 (severe) N18.4 [place] [address] [address] Feb, Arthritis M19.90 and Labyrin thitis of left ear H83.02 [place] [address] [place] [id number] [address] [place] [address] Jan, Labyrinthitis of left ear H8 3.02 and Deficiency of other specified B group vitamins E53.8 [place] [address] [place] [id number] [address] [place] [address] Dec, Arthritis M19.90 [place] [address] [address] Dec, BPV (benign positional verti go), bilateral H81.13 [facility] [address] [place] [id number] [address] [place] [address] Dec, [facility] [address] [facility] [id number] [address] [place] [address] Dec, [facility] [address] [place] [id number] [address] [place] [address] Dec, [facility] [address] [place] [id number] [address] [place] [address] Nov, Arthritis M19.90 and Deficie ncy of other specified B group vitamins E53.8 [facility] [address] [facility] [id number] [address] [place] [address] Nov, Arthritis M19.90 [facility] [address] [place] [id number] [address] [place] [address] Nov, Hyperparathyroidism E21.3 [facility] [address] [place] [id number] [address] [place] [address] October, [facility] [address] [place] [id number] [address] [place] [address] October, Hyperparathyroidism E21.3 [facility] [address] [place] [id number] [address] [place] [address] October, [facility] [address] [place] [id number] [address] [place] [address] October, Renal insufficiency N28.9 an d Hyperparathyroidism E21.3 [facility] [address] [facility] [id number] [address] [place] [address] October, [facility] [address] [place] [id number] [address] [place] [address] October, Renal insufficiency N28.9 an d Hyperparathyroidism E21.3 [facility] [address] [place] [id number] [address] [place] [address] October, Arthritis M19.90 [facility] [address] [place] [id number] [address] [place] [address] Sep, [facility] [address] [address] Sep, Lumbar neuritis M54.16 ; Tho racic abscess J86.9 and Deficiency of other specified B group vitamins E53.8 [facility] [address] [facility] [id number] [address] [place] [address] Sep, [facility] [address] [place] [id number] [address] [place] [address] Aug, Arthritis M19.90 [facility] [address] [address] Aug, Hyperparathyroidism E21.3 [facility] [address] [address] Aug, Hyperparathyroidism E21.3 [facility] [address] [place] [id number] [address] [place] [address] Aug, Arthritis M19.90 [facility] [address] [place] [id number] [address] [place] [address] Jul, Mass of throat R22.1 [facility] [address] [place] [id number] [address] [place] [address] Jul, [facility] [address] [place] [id number] [address] [place] [address] Jul, Arthritis M19.90 [facility] [address] [place] [id number] [address] [place] [address] Jun, Arthritis M19.90 [facility] [address] [place] [id number] [address] [place] [address] Jun, [facility] [address] [place] [id number] [address] [place] [address] Jun, Renal insufficiency N28.9 an d Parathyroid abnormality E21.5 [facility] [address] [facility] [id number] [address] [place] [address] 05 Jun, 2016 Medicare welcome exam Z00.00 ; Encounter for immunization Z23 ; Arthritis M19.90 ; Medicare annual wellness visit, initial Z00.00 ; Medicare annual wellness visit, subsequent Z00.00 and Deficiency of other specified B group vitamins E53.8 [facility] [address] [facility] [id number] [address] [place] [address] 29 May, 2016 Renal insufficiency N28.9 an d Parathyroid abnormality E21.5 [facility] [address] [facility] [id number] [address] [place] [phone] 19 May, 2016 Renal insufficiency N28.9 [facility] [address] [facility] [id number] [address] [place] [phone] 16 May, 2016 Renal insufficiency N28.9 [facility] [address] [facility] [id number] [address] [place] [phone] 14 May, 2016 [facility] [address] [facility] [id number] [address] [place] [phone] Apr, [facility] [address] [facility] [id number] [address] [place] [id number] Apr, [facility] [address] [facility] [id number] [address] [place] [phone] 14 Apr, 2016 Mass of throat R22.1 [facility] [address] [facility] [id number] [address] [place] [id number] 10 Apr, 2016 [facility] [address] [facility] [id number] [address] [place] [id number] 10 Apr, 2016 Mass of throat R22.1 [facility] [address] [facility] [id number] [address] [place] [phone] 04 Apr, 2016 Mass of throat R22.1 [facility] [address] [facility] [id number] [address] [place] [phone] 31 Mar, 2016 [facility] [address] [id number] [address] [place] [phone] 31 Mar, 2016 [facility] [address] [facility] [id number] [address] [place] [phone] Mar, [facility] [address] [facility] [id number] [address] [place] [phone] 24 Mar, 2016 Parathyroid abnormality E21. 5 and Encounter for immunization Z23 [facility] [address] [facility] [id number] [address] [place] [phone] 17 Mar, 2016 [facility] [address] [facility] [id number] [address] [place] [phone] Mar, [facility] [address] [facility] [id number] [address] [place] [phone] 21 Feb, 2016 Renal insufficiency N28.9 an d Hyperparathyroidism E21.3 [facility] [address] [facility] [id number] [address] [place] [address] 19 Feb, 2016 [facility] [address] [facility] [id number] [address] [place] [address] 15 Feb, 2016 Renal insufficiency N28.9 an d Hyperparathyroidism E21.3 [facility] [address] [facility] [id number] [address] [place] [address] 14 Feb, 2016 [facility] [address] [facility] [id number] [address] [place] [address] 12 Feb, 2016 [facility] [address] [facility] [id number] [address] [place] [address] 09 Feb, 2016 [facility] [address] [facility] [id number] [address] [place] [address] Jan, [facility] [address] [facility] [id number] [address] [place] [address] Jan, Arthritis M19.90 ; Lumbago w ith sciatica, right side M54.41 and Other chronic pain G89.29 [facility] [address] [facility] [id number] [address] [place] [address] Jan, [facility] [address] [facility] [id number] [address] [place] [address] Dec, Arthritis M19.90 ; Lumbago w ith sciatica, right side M54.41 and Other chronic pain G89.29 [facility] [address] [facility] [id number] [address] [place] [address] Nov, Deficiency of other specifie d B group vitamins E53.8 ; Primary insomnia F51.01 ; Mood disorder F39 and Lumbago with sciatica, right side M54.41 [place] [address] [facility] [id number] [address] [place] [address] Nov, Hyperparathyroidism E21.3 [place] [address] [facility] [id number] [address] [place] [address] Nov, Unspecified kidney failure N 19 and Hyperparathyroidism E21.3 [place] [address] [facility] [id number] [address] [place] [address] October, Hyperparathyroidism E21.3 [place] [address] [facility] [id number] [address] [place] [address] October, [place] [address] [facility] [id number] [address] [place] [address] October, Hyperparathyroidism E21.3 [place] [address] [facility] [id number] [address] [place] [address] October, Hyperparathyroidism E21.3 [place] [address] [facility] [id number] [address] [place] [address] Sep, Hyperparathyroidism E21.3 ; Hypercholesterolemia E78.0 and Arthritis M19.90 [facility] [address] [facility] [id number] [address] [place] [address] Aug, [place] [address] [facility] [id number] [address] [place] [address] Aug, Deficiency of other specifie d B group vitamins E53.8 [place] [address] [facility] [id number] [address] [place] [address] Aug, [facility] [address] [facility] [id number] [address] [place] [address] Jul, Urinary frequency R35.0 [facility] [address] [facility] [id number] [address] [place] [address] Jul, Urinary frequency R35.0 [facility] [address] [facility] [id number] [address] [place] [address] Jul, [facility] [address] [facility] [id number] [address] [place] [address] Jul, [facility] [address] [facility] [id number] [address] [place] [address] Jun, Pain in left knee M25.562 [facility] [address] [facility] [id number] [address] [place] [address] Jun, [facility] [address] [facility] [id number] [address] [place] [address] May, Swelling of left knee joint M25.462 [facility] [address] [place] [id number] [address] [place] [address] May, [facility] [address] [facility] [id number] [address] [place] [address] May, [facility] [address] [facility] [id number] [address] [place] [address] May, [facility] [address] [facility] [id number] [address] [place] [address] Apr, Renal insufficiency N28.9 an d Chronic kidney disease, stage 4 (severe) N18.4 [facility] [address] [facility] [id number] [address] [place] [address] Apr, Unspecified kidney failure N 19 [facility] [address] [facility] [id number] [address] [place] [address] Apr, Unspecified kidney failure N 19 [facility] [address] [id number] [address] [place] [address] Apr, [facility] [address] [id number] [address] [place] [address] Apr, Hyperparathyroidism, unspeci fied 252.00 [facility] [address] [facility] [id number] [address] [place] [address] Apr, [facility] [address] [facility] [id number] [address] [place] [address] Mar, [facility] [address] [id number] [address] [place] [address] Mar, [facility] [address] [facility] [id number] [address] [place] [address] Mar, Hyperparathyroidism, unspeci fied 252.00 [facility] [address] [facility] [id number] [address] [place] [address] Feb, [facility] [address] [facility] [id number] [address] [place] [address] Feb, Otalgia 388.70 [facility] [address] [facility] [id number] [address] [place] [address] Feb, [facility] [address] [facility] [id number] [address] [place] [address] Feb, [facility] [address] [facility] [id number] [address] [place] [address] Jan, [facility] [address] [facility] [id number] [address] [place] [address] Jan, Hyperparathyroidism, unspeci fied 252.00 [facility] [address] [facility] [id number] [address] [place] [address] Jan, [facility] [address] [facility] [id number] [address] [place] [address] Jan, Other B-complex deficiencies 266.2 and Hyperparathyroidism, unspecified 252.00 [facility] [address] [id number] [address] [place] [address] Jan, [facility] [address] [id number] [address] [place] [address] Jan, [facility] [address] [id number] [address] [place] [address] Jan, [facility] [address] [id number] [address] [place] [address] Dec, [facility] [address] [id number] [address] [place] [address] Dec, [facility] [address] [id number] [address] [place] [address] Dec, [facility] [address] [id number] [address] [place] [address] Nov, Routine check-up V70.0 and P re-op exam V72.84 [facility] [address] [id number] [address] [place] [address] Nov, [facility] [address] [id number] [address] [place] [address] Nov, [facility] [address] [id number] [address] [place] [address] October, [facility] [address] [id number] [address] [place] [address] October, Other B-complex deficiencies 266.2 [facility] [address] [id number] [address] [place] [address] October, [facility] [address] [id number] [address] [place] [address] 14 Sep, 2014 [facility] [address] [id number] [address] [place] [address] Sep, [facility] [address] [id number] [address] [place] [address] 20 Aug, 2014 [facility] [address] [id number] [address] [place] [address], [place] [address] 20 Aug, 2014 [facility] [address] [id number] [address] [place] [address], [place] [address] 17 Aug, 2014 [facility] [address] [id number] [address] [place] [address], [place] [address] 17 Aug, 2014 [facility] [address] [id number] [address] [place] [address], [place] [address] Aug, [facility] [address] [id number] [address] [place] [address], [place] [address] Aug, [facility] [address] [id number] [address] [place] [address], [place] [address] 18 Jul, 2014 [facility] [address] [id number] [address] [place] [address], [place] [address] 18 Jul, 2014 [facility] [address] [id number] [address] [place] [address], [place] [address] 17 Jul, 2014 [facility] [address] [id number] [address] [place] [address], [place] [address] 17 Jul, 2014 [facility] [address] [id number] [address] [place] [address], [place] [address] 12 Jul, 2014 [facility] [address] [id number] [address] [place] [address], [place] [address] 12 Jul, 2014 [facility] [address] [id number] [address] [place] [address], [place] [address] 10 Jul, 2014 [facility] [address] [id number] [address] [place] [address], [place] [address] 10 Jul, 2014 [facility] [address] [id number] [address] [place] [address], [place] [address] 09 Jul, 2014 [facility] [address] [id number] [address] [place] [address], [place] [address] 09 Jul2014 [facility] [address] [id number] [address] [place] [address], [place] [address] Jul, [facility] [address] [id number] [address] [place] [address], [place] [address] Jul, [facility] [address] [id number] [address] [place] [address], [place] [address] Jul, [facility] [address] [id number] [address] [place] [address], [place] [address] Jul, [facility] [address] [id number] [address] [place] [address], [place] [address] Jun, [facility] [address] [id number] [address] [place] [address], [place] [address] Jun, [facility] [address] [id number] [address] [place] [address], [place] [address] Jun, [facility] [address] [id number] [address] [place] [address], [place] [address] Jun, [facility] [address] [id number] [address] [place] [address], [place] [address] Jun, [facility] [address] [id number] [address] [place] [address], [place] [address] Jun, [facility] [address] [id number] [address] [place] [address], [place] [address] Jun, [facility] [address] [id number] [address] [place] [address], [place] [address] Jun, [facility] [address] [id number] [address] [place] [address], [place] [address] Jun, [facility] [address] [id number] [address] [place] [address], [place] [address] Jun, [facility] [address] [id number] [address] [place] [address], [place] [address] Jun, [facility] [address] [id number] [address] [place] [address] Jun, [facility] [address] [id number] [address] [place] [address], [place] [address] Jun, [facility] [address] [id number] [address] [place] [address] Jun, [facility] [address] [id number] [address] [place] [address], [place] [address] May, [facility] [address] [id number] [address] [place] [address], [place] [address] May, [facility] [address] [id number] [address] [place] [address], [place] [address] May, [facility] [address] [id number] [address] [place] [address], [place] [address] May, [facility] [address] [id number] [address] [place] [address], [place] [address] Apr, [facility] [address] [id number] [address] [place] [address], [place] [address] Apr, [facility] [address] [id number] [address] [place] [address], [place] [address] Apr, [facility] [address] [id number] [address] [place] [address], [place] [address] Apr, [facility] [address] [id number] [address] [place] [address], [place] [address] Apr, [facility] [address] [id number] [address] [place] [address], [place] [address] Apr, [facility] [address] [id number] [address] [place] [address], [place] [address] Mar, [facility] [address] [id number] [address] [place] [address], [place] [address] Mar, [facility] [address] [id number] [address] [place] [address], [place] [address] Mar, [facility] [address] [id number] [address] [place] [address], [place] [address] 22 Mar, 2013 [facility] [address] [id number] [address] [place] [address], [place] [address] 15 Mar, 2014 [facility] [address] [id number] [address] [place] [address], [place] [address] 15 Mar, 2013 [facility] [address] [id number] [address] [place] [address], [place] [address] 13 Mar, 2013 [facility] [address] [id number] [address] [place] [address], [place] [address] 13 Mar, 2013 [facility] [address] [id number] [address] [place] [address], [place] [address] 07 Mar, 2013 [facility] [address] [id number] [address] [place] [address], [place] [address] 07 Mar, 2013 [facility] [address] [id number] [address] [place] [address], [place] [address] 07 Mar, 2013 [facility] [address] [id number] [address] [place] [address], [place] [address] 07 Mar, 2013 [facility] [address] [id number] [address] [place] [address], [place] [address] 06 Mar, 2013 [facility] [address] [id number] [address] [place] [address], [place] [address] 26 Feb, 2013 [facility] [address] [id number] [address] [place] [address], [place] [address] 26 Feb, 2013 [facility] [address] [id number] [address] [place] [address], [place] [address] 23 Feb, 2013 [facility] [address] [id number] [address] [place] [address], [place] [address] 23 Feb, 2013 [facility] [address] [id number] [address] [place] [address], [place] [address] 19 Feb, 2013 [facility] [address] [id number] [address] [place] [address], [place] [address] 19 Feb, 2014 [facility] [address] [id number] [facility] [address] 13 Feb, 2014 [facility] [address] [id number] [address] [place] [address], [place] [address] 13 Feb, 2014 [facility] [address] [id number] [address] [place] [address], [place] [address] 12 Feb, 2014 [facility] [address] [id number] [address] [place] [address], [place] [address] Feb, [facility] [address] [id number] [address] [place] [address], [place] [address] Jan, [facility] [address] [id number] [address] [place] [address], [place] [address] Jan, [facility] [address] [id number] [address] [place] [address], [place] [address] Dec, [facility] [address] [id number] [address] [place] [address], [place] [address] Dec, [facility] [address] [id number] [address] [place] [address], [place] [address] Dec, [facility] [address] [id number] [address] [place] [address], [place] [address] Dec, [facility] [address] [id number] [address] [place] [address], [place] [address] Dec, [facility] [address] [id number] [address] [place] [address], [place] [address] Dec, [facility] [address] [id number] [address] [place] [address], [place] [address] Nov, [facility] [address] [id number] [address] [place] [address], [place] [address] Nov, [facility] [address] [id number] [address] [place] [address], [place] [address] Nov, [facility] [address] [id number] [address] [place] [address], [place] [address] Nov, [facility] [address] [id number] [facility] [address] October, [facility] [address] [id number] [address] [place] [address], [place] [address] October, [facility] [address] [id number] [address] [place] [address], [place] [address] October, [facility] [address] [id number] [address] [place] [address], [place] [address] October, [facility] [address] [id number] [address] [place] [address], [place] [address] October, [facility] [address] [id number] [address] [place] [address], [place] [address] October, [facility] [address] [id number] [address] [place] [address], [place] [address] October, [facility] [address] [id number] [address] [place] [address], [place] [address] October, [facility] [address] [id number] [address] [place] [address], [place] [address] October, [facility] [address] [id number] [address] [place] [address], [place] [address] October, [facility] [address] [id number] [address] [place] [address], [place] [address] October, [facility] [address] [id number] [address] [place] [address], [place] [address] October, [facility] [address] [id number] [address] [place] [address], [place] [address] October, [facility] [address] [id number] [address] [place] [address], [place] [address] October, [facility] [address] [id number] [address] [place] [address], [place] [address] October, [facility] [address] [id number] [facility] [address] October, [facility] [address] [id number] [facility] [place] [address] Sep, [facility] [address] [id number] [facility] [place] [address] Sep, [facility] [address] [id number] [address] [place] [address], [place] [address] Sep, [facility] [address] [id number] [address] [place] [address], [place] [address] Sep, [facility] [address] [id number] [address] [place] [address], [place] [address] Sep, [facility] [address] [id number] [address] [place] [address], [place] [address] Sep, [facility] [address] [id number] [address] [place] [address], [place] [address] Aug, [facility] [address] [id number] [address] [place] [address], [place] [address] Aug, [facility] [address] [id number] [address] [place] [address], [place] [address] Aug, [facility] [address] [id number] [address] [place] [address], [place] [address] Aug, [facility] [address] [id number] [address] [place] [address], [place] [address] Aug, [facility] [address] [id number] [address] [place] [address], [place] [address] Aug, [facility] [address] [id number] [address] [place] [address], [place] [address] Jul, [facility] [address] [id number] [address] [place] [address], [place] [address] Jul, [facility] [address] [id number] [address] [place] [address], [place] [address] Jul, [facility] [address] [id number] [address] [place] [address], [place] [address] Jul, [facility] [address] [id number] [address] [place] [address] Jun, [facility] [address] [id number] [address] [place] [address], [place] [address] Jun, [facility] [address] [id number] [address] [place] [address], [place] [address] May, [facility] [address] [id number] [address] [place] [address], [place] [address] May, [facility] [address] [id number] [address] [place] [address], [place] [address] May, [facility] [address] [id number] [address] [place] [address], [place] [address] May, [facility] [address] [id number] [address] [place] [address], [place] [address] May, [facility] [address] [id number] [address] [place] [address] Apr, [facility] [address] [id number] [address] [place] [address], [place] [address] Apr, [facility] [address] [id number] [address] [place] [address] Apr, [facility] [address] [id number] [address] [place] [address] Apr, [facility] [address] [id number] [address] [place] [address] Apr, [facility] [address] [id number] [address] [place] [address] Apr, [facility] [address] [id number] [address] [place] [address], [place] [address] 15 Mar, 2013 [facility] [address] [id number] [address] [place] [address], [place] [address] 15 Mar, 2013 [facility] [address] [id number] [address] [place] [address], [place] [address] 14 Mar, 2013 [facility] [facility] [address] [id number] [address] [place] [address], [place] [address] 14 Mar, 2013 [facility] [address] [id number] [address] [place] [address], [place] [address] 11 Mar, 2013 [facility] [address] [id number] [address] [place] [address], [place] [address] 11 Mar, 2013 [facility] [address] [id number] [address] [place] [address], [place] [address] 23 Feb, 2013 [facility] [address] [id number] [address] [place] [address], [place] [address] Feb, [facility] [address] [id number] [address] [place] [address], [place] [address] 04 Feb, 2013 [facility] [address] [id number] [address] [place] [address], [place] [address] Jan, [facility] [address] [id number] [address] [place] [address], [place] [address] Jan, [facility] [address] [id number] [address] [place] [address], [place] [address] Jan, [facility] [address] [id number] [address] [place] [address], [place] [address] Jan, [facility] [address] [id number] [address] [place] [address], [place] [address] Jan, [facility] [address] [id number] [address] [place] [address], [place] [address] Jan, [facility] [address] [id number] [address] [place] [address], [place] [address] Dec, [facility] [address] [id number] [address] [place] [address], [place] [address] Dec, [facility] [address] [id number] [address] [place] [address], [place] [address] Dec, [facility] [address] [id number] [address] [place] [address], [place] [address] Dec, [facility] [address] [id number] [address] [place] [address], [place] [address] Dec, [facility] [address] [id number] [address] [place] [address], [place] [address] Dec, [facility] [address] [id number] [address] [place] [address], [place] [address] Nov, [facility] [address] [id number] [address] [place] [address], [place] [address] Nov, [facility] [address] [id number] [address] [place] [address], [place] [address] Nov, [facility] [address] [id number] [address] [place] [address], [place] [address] Nov, [facility] [address] [id number] [address] [place] [address], [place] [address] Nov, [facility] [address] [id number] [address] [place] [address], [place] [address] Nov, [facility] [address] [id number] [address] [place] [address], [place] [address] October, [facility] [address] [id number] [address] [place] [address], [place] [address] October, [facility] [address] [id number] [address] [place] [address], [place] [address] October, [facility] [address] [id number] [address] [place] [address], [place] [address] October, [facility] [address] [id number] [address] [place] [address], [place] [address] October, [facility] [address] [id number] [address] [place] [address], [place] [address] 30 Sep, 2012 [facility] [address] [id number] [address] [place] [address], [place] [address] 23 Sep, 2012 [facility] [address] [id number] [address] [place] [address], [place] [address] 19 Sep, 2012 [facility] [address] [id number] [address] [place] [address], [place] [address] 18 Sep, 2012 [facility] [address] [id number] [address] [place] [address], [place] [address] 09 Sep, 2012 [facility] [address] [id number] [address] [place] [address], [place] [address] 26 Aug, 2012 [facility] [address] [id number] [address] [place] [address], [place] [address] 07 Aug, 2012 [facility] [address] [id number] [address] [place] [address], [place] [address] 04 Aug, 2012 [facility] [address] [id number] [address] [place] [address], [place] [address] Jul, [facility] [address] [id number] [address] [place] [address], [place] [address] 20 Jul, 2012 [facility] [address] [id number] [address] [place] [address], [place] [address] Jul, [facility] [address] [id number] [address] [place] [address], [place] [address] 08 Jul, 2012 [facility] [address] [id number] [address] [place] [address], [place] [address] 06 Jul, 2012 [facility] [address] [id number] [address] [place] [address], [place] [address] 05 Jul, 2012 [facility] [address] [id number] [address] [place] [address], [place] [address] 15 Jun, 2012 [facility] [address] [id number] [address] [place] [address], [place] [address] Apr, [facility] [address] [id number] [address] [place] [address], [place] [address] Apr, [facility] [address] [id number] [address] [place] [address], [place] [address] Apr, [facility] [address] [id number] [address] [place] [address], [place] [address] Apr, [facility] [address] [id number] [address] [place] [address], [place] [address] Mar, [facility] [address] [id number] [address] [place] [address], [place] [address] Mar, [facility] [address] [id number] [address] [place] [address], [place] [address] Mar, [facility] [address] [id number] [address] [place] [address], [place] [address] Mar, [facility] [address] [id number] [address] [place] [address] Mar, [facility] [address] [id number] [address] [place] [address], [place] [address] Feb, [facility] [address] [id number] [address] [place] [address] Jan, [facility] [address] [id number] [address] [place] [address] Jan, [facility] [address] [id number] [address] [place] [address] Jan, [facility] [address] [id number] [address] [place] [address], [place] [address] Dec, [facility] [address] [id number] [address] [place] [address] Nov, [facility] [address] [id number] [address] [place] [address] Nov, [facility] [address] [id number] [address] [place] [address] Nov, [facility] [address] [facility] [id number] [address] [place] [address] Nov, [facility] [address] [facility] [id number] [address] [place] [address] Nov, [facility] [address] [facility] [id number] [address] [place] [address] October, [facility] [address] [facility] [id number] [address] [place] [address] October, [facility] [address] [facility] [id number] [address] [place] [address] October, [facility] [address] [facility] [id number] [address] [place] [address] October, [facility] [address] [facility] [id number] [address] [place] [address] October, IMMUNIZATIONS No Known Immunizations SOCIAL HISTORY [...]
--- OUTSIDE RECORDS SUMMARY | 2020-01-25 08:12 | XMS REPORT ---
Author Author Velma CORDERO Organization [facility] Address [address] [place] [address] Care Team Providers Care Collar Closer Lockstitch Name Role Phone STEPHAN CORDERO Unavailable PROBLEMS Type Condition ICD9-CM Code VWX63-KS Code Onset Dates Condition S tatus SNOMED Code Problem Corns L84 Active 861102176 Problem Primary insomnia F51.01 Active 397 2004 Problem Hyperparathyroidism E21.3 Active 46372387 Problem Hypercholesteremia E78.0 Active 1 1464260 Problem Mood disorder F39 Active 701471 05 Problem Arthritis M19.90 Active 9144591 Problem 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 Active 37189557 Problem Myalgia M79.1 Active 50513152 Problem Chronic kidney disease, stage 4 (severe) N18.4 Active 607855907 Problem Primary osteoarthritis of left knee M17.12 Active [id number] Problem Irritable bowel syndrome with both constipation and diarrh ea K58.2 Active 52687654 Problem Other chronic pain G89.29 Active 8 3845771 Problem BPV (benign positional vertigo), bilateral H81.13 Active 875114531 Problem Hyperparathyroidism, unspecified E21.3 Active 22173397 Problem Parathyroid abnormality E21.5 Active 06527841 Problem Body mass index (BMI) of 40.0-44.9 in adult Z68.41 Active 952317171 Problem Unspecified kidney failure N19 Act chip 11116087 Problem 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 Active 894333936 Problem Unspecified inflammatory spo ndylopathy, sacral and sacrococcygeal region M46.98 Active 08227016 ALLERGIES No Information ENCOUNTERS Encounter Location Date Diagnosis [facility] [address] [facility] [id number] [address] [place] [address] Dec, Hyperparathyroidism, unspeci fied E21.3 [facility] [address] [facility] [id number] [address] [place] [address] Dec, [place] [address] [place] [id number] [address] [place] [address] Nov, Hyperparathyroidism, unspeci fied E21.3 [place] [address] [place] [id number] [address] [place] [address] Nov, Hyperparathyroidism, unspeci fied E21.3 [place] [address] [address] Nov, Chronic kidney disease, stag e 4 (severe) N18.4 ; Hyperparathyroidism, unspecified E21.3 and Left otitis media with effusion H65.92 [place] [address] [address] Nov, Hyperparathyroidism, unspeci fied E21.3 [place] [address] [address] October, [place] [address] [address] October, Hyperparathyroidism, unspeci fied E21.3 [place] [address] [place] [id number] [address] [place] [address] October, Hyperparathyroidism, unspeci fied E21.3 [place] [address] [place] [id number] [address] [place] [address] Sep, Hyperparathyroidism, unspeci fied E21.3 [place] [id number] [place] [address] Aug, Hyperparathyroidism, unspeci fied E21.3 [place] [address] [place] [id number] [address] [place] [address] Aug, Pain in left knee M25.562 ; Other chronic pain G89.29 ; Unspecified inflammatory spondylopathy, sacral and sacrococcygeal region M46.98 ; Chronic kidney disease, stage 4 (severe) N18.4 and Hyperparathyroidism, unspecified E21.3 [place] [address] [place] [id number] [address] [place] [address] Jul, [facility] [address] [facility] [id number] [address] [place] [address] Jul, Arthritis M19.90 [facility] [address] [facility] [id number] [address] [place] [address] Jun, Knee pain, left M25.562 [facility] [address] [facility] [id number] [address] [place] [address] May, Arthritis M19.90 [facility] [address] [facility] [id number] [address] [place] [address] Apr, Well woman exam without gyne cological exam Z00.00 and Screening for breast cancer Z12.39 [place] [address] [facility] [id number] [address] [place] [address] Mar, Arthritis M19.90 [facility] [address] [facility] [id number] [address] [place] [address] Mar, Arthritis M19.90 [facility] [address] [facility] [id number] [address] [place] [address] Mar, [facility] [address] [facility] [id number] [address] [place] [address] Mar, Arthritis M19.90 and Encount er for immunization Z23 [facility] [address] [facility] [id number] [address] [place] [address] Feb, Arthritis M19.90 [facility] [address] [facility] [id number] [address] [place] [address] Feb, [facility] [address] [facility] [id number] [address] [place] [address] Feb, Other specified disorders of bone density and structure, unspecified site M85.80 [facility] [address] [facility] [id number] [address] [place] [address] Jan, Arthritis M19.90 [facility] [address] [id number] [address] [place] [address] Dec, Arthritis M19.90 [facility] [address] [id number] [address] [place] [address] Nov, Inflammatory spondylopathy o f sacral region M46.98 [facility] [address] [id number] [address] [place] [address] Nov, [facility] [address] [facility] [id number] [address] [place] [address] 14 Nov, 2018 Labyrinthitis of left ear H8 3.02 [facility] [address] [facility] [id number] [address] [place] [address] 03 Nov, 2018 Arthritis M19.90 [facility] [address] [facility] [id number] [address] [place] [address] 15 Sep, 2018 Arthritis M19.90 [facility] [address] [facility] [id number] [address] [place] [address] Sep, Renal insufficiency N28.9 an d Unspecified kidney failure N19 [facility] [address] [facility] [id number] [address] [place] [address] Sep, Renal insufficiency N28.9 an d Unspecified kidney failure N19 [facility] [address] [facility] [id number] [address] [place] [address] Sep, Arthritis M19.90 [facility] [address] [facility] [id number] [address] [place] [address] Aug, Exercise counseling Z71.82 [facility] [address] [facility] [id number] [address] [place] [address] Aug, [facility] [address] [facility] [id number] [address] [place] [address] Jul, Labyrinthitis of left ear H8 3.02 [facility] [address] [facility] [id number] [address] [place] [address] 22 Jul, 2018 Labyrinthitis of left ear H8 3.02 [facility] [address] [facility] [id number] [address] [place] [address] 19 Jul, 2018 Exercise counseling Z71.82 [facility] [address] [facility] [id number] [address] [place] [id number] 18 Jul, 2018 [place] [address] [facility] [id number] [address] [place] [address] 14 Jul, 2018 Arthritis M19.90 [place] [address] [facility] [id number] [address] [place] [address] 13 Jul, 2018 Encounter for Medicare annua l wellness exam Z00.00 ; Chronic kidney disease, stage 4 (severe) N18.4 ; Body mass index (BMI) of 40.0-44.9 in adult Z68.41 ; Hyperparathyroidism E21.3 and BMI 40.0-44.9, adult Z68.41 [place] [address] [place] [id number] [address] [place] [address] 13 Jul, 2018 Encounter for Medicare annua l wellness exam Z00.00 ; Chronic kidney disease, stage 4 (severe) N18.4 ; Hyperparathyroidism E21.3 ; Body mass index (BMI) of 40.0-44.9 in adult Z68.41 and Encounter for immunization Z23 [place] [address] [place] [id number] [address] [place] [address] 11 Jul, 2018 Tail bone pain M53.3 [place] [address] [facility] [id number] [address] [place] [address] Jun, Exercise counseling Z71.82 [place] [address] [facility] [id number] [address] [place] [address] Jun, Labyrinthitis of left ear H8 3.02 [place] [address] [facility] [id number] [address] [place] [address] Jun, Tail bone pain M53.3 ; Irrit able bowel syndrome with both constipation and diarrhea K58.2 and Dysfunction of left eustachian tube H69.82 [facility] [address] [id number] [address] [place] [address] Jun, Exercise counseling Z71.82 [facility] [address] [id number] [address] [place] [address] Jun, Arthritis M19.90 [facility] [address] [id number] [address] [place] [address] Jun, Irritable bowel syndrome wit h both constipation and diarrhea K58.2 ; Tail bone pain M53.3 and Dysfunction of left eustachian tube H69.82 [facility] [address] [id number] [address] [place] [address] Jun, Exercise counseling Z71.82 [place] [address] [id number] [address] [place] [address] Jun, Exercise counseling Z71.82 [facility] [address] [id number] [address] [place] [address] Jun, Labyrinthitis of left ear H8 3.02 [facility] [address] [id number] [address] [place] [address] May, Exercise counseling Z71.82 [facility] [address] [id number] [address] [place] [address] May, Arthritis M19.90 [facility] [address] [id number] [address] [place] [address] May, Exercise counseling Z71.82 [facility] [address] [id number] [address] [place] [address] May, Exercise counseling Z71.82 [facility] [address] [id number] [address] [place] [address] May, Labyrinthitis of left ear H8 3.02 [facility] [address] [id number] [address] [place] [address] May, Exercise counseling Z71.82 [facility] [address] [facility] [id number] [address] [place] [address] Apr, Arthritis M19.90 [facility] [address] [facility] [id number] [address] [place] [address] Apr, Exercise counseling Z71.82 [place] [address] [facility] [id number] [address] [place] [address] Apr, Exercise counseling Z71.82 [place] [address] [facility] [id number] [address] [place] [address] Apr, Primary osteoarthritis of le ft knee M17.12 [place] [address] [place] [id number] [address] [place] [address] Apr, Labyrinthitis of left ear H8 3.02 [place] [address] [place] [id number] [address] [place] [address] Mar, Arthritis M19.90 [place] [address] [facility] [id number] [address] [place] [address] Mar, [place] [address] [address] Mar, Chronic kidney disease, stag e 4 (severe) N18.4 [place] [address] [address] Mar, Chronic kidney disease, stag e 4 (severe) N18.4 [place] [address] [facility] [id number] [address] [place] [address] Mar, Labyrinthitis of left ear H8 3.02 [place] [address] [place] [id number] [address] [place] [address] 05 Mar, 2018 Chronic kidney disease, stag e 4 (severe) N18.4 ; Knee pain, left anterior M25.562 ; Deficiency of other specified B group vitamins E53.8 and Encounter for immunization Z23 [place] [address] [place] [id number] [address] [place] [address] Mar, Arthritis M19.90 [facility] [address] [place] [id number] [address] [place] [address] Feb, Labyrinthitis of left ear H8 3.02 [facility] [address] [facility] [id number] [address] [place] [address] Feb, Arthritis M19.90 [facility] [address] [facility] [id number] [address] [place] [address] Jan, Labyrinthitis of left ear H8 3.02 [facility] [address] [place] [id number] [address] [place] [address] Jan, Arthritis M19.90 [facility] [address] [place] [id number] [address] [place] [address] Dec, Labyrinthitis of left ear H8 3.02 [facility] [address] [place] [id number] [address] [place] [address] Nov, Arthritis M19.90 [facility] [address] [place] [id number] [address] [place] [address] Nov, Labyrinthitis of left ear H8 3.02 [facility] [address] [place] [id number] [address] [place] [address] Nov, BMI 40.0-44.9, adult Z68.41 ; Chronic kidney disease, stage 4 (severe) N18.4 and Acute right-sided thoracic back pain M54.6 [facility] [address] [place] [id number] [address] [place] [address] October, Labyrinthitis of left ear H8 3.02 and Arthritis M19.90 [facility] [address] [place] [id number] [address] [place] [address] Sep, BPV (benign positional verti go), bilateral H81.13 ; Dysfunction of left eustachian tube H69.82 and BMI 40.0-44.9, adult Z68.41 [facility] [address] [facility] [id number] [address] [place] [address] Sep, Labyrinthitis of left ear H8 3.02 and Arthritis M19.90 [facility] [address] [id number] [address] [place] [address] Sep, [facility] [address] [facility] [id number] [address] [place] [address] Sep, [facility] [address] [id number] [address] [place] [address] Sep, Chronic kidney disease, stag e 4 (severe) N18.4 [facility] [address] [facility] [id number] [address] [place] [address] Sep, Chronic kidney disease, stag e 4 (severe) N18.4 [facility] [address] [facility] [id number] [address] [place] [address] Aug, Labyrinthitis of left ear H8 3.02 and Arthritis M19.90 [facility] [address] [id number] [address] [place] [address] Aug, [facility] [address] [facility] [id number] [address] [place] [address] Jul, [facility] [address] [id number] [address] [place] [address] Jul, Arthritis M19.90 and Labyrin thitis of left ear H83.02 [facility] [address] [id number] [address] [place] [address] Jul, [facility] [address] [id number] [address] [place] [address] Jun, [facility] [address] [id number] [address] [place] [address] Jun, Arthritis M19.90 and Labyrin thitis of left ear H83.02 [place] [address] [place] [id number] [address] [place] [address] Jun, Pre-op evaluation Z01.818 ; BMI 40.0-44.9, adult Z68.41 and Encounter for immunization Z23 [place] [address] [address] May, Arthritis M19.90 and Labyrin thitis of left ear H83.02 [place] [address] [address] Apr, Labyrinthitis of left ear H8 3.02 [place] [address] [address] Apr, Arthritis M19.90 and Labyrin thitis of left ear H83.02 [place] [address] [address] Mar, Arthritis M19.90 and Labyrin thitis of left ear H83.02 [place] [address] [address] Mar, Chronic kidney disease, stag e 4 (severe) N18.4 [place] [address] [address] Feb, Arthritis M19.90 and Labyrin thitis of left ear H83.02 [place] [address] [address] Jan, Labyrinthitis of left ear H8 3.02 and Deficiency of other specified B group vitamins E53.8 [place] [address] [address] Dec, Arthritis M19.90 [place] [address] [place] [id number] [place] [address] Dec, BPV (benign positional verti go), bilateral H81.13 [place] [address] [place] [address] Dec, [facility] [address] [facility] [id number] [address] [place] [address] Dec, [facility] [address] [facility] [id number] [address] [place] [address] Dec, [facility] [address] [facility] [id number] [address] [place] [address] Nov, Arthritis M19.90 and Deficie ncy of other specified B group vitamins E53.8 [facility] [address] [facility] [id number] [address] [place] [address] Nov, Arthritis M19.90 [facility] [address] [facility] [id number] [address] [place] [address] Nov, Hyperparathyroidism E21.3 [facility] [address] [facility] [id number] [address] [place] [address] October, [facility] [address] [facility] [id number] [address] [place] [address] October, Hyperparathyroidism E21.3 [facility] [address] [facility] [id number] [address] [place] [address] October, [facility] [address] [facility] [id number] [address] [place] [address] October, Renal insufficiency N28.9 an d Hyperparathyroidism E21.3 [facility] [address] [facility] [id number] [address] [place] [address] October, [facility] [address] [facility] [id number] [address] [place] [address] October, Renal insufficiency N28.9 an d Hyperparathyroidism E21.3 [facility] [address] [facility] [id number] [address] [place] [address] October, Arthritis M19.90 [facility] [address] [facility] [id number] [address] [place] [address] Sep, [facility] [address] [facility] [id number] [address] [place] [address] Sep, Lumbar neuritis M54.16 ; Tho racic abscess J86.9 and Deficiency of other specified B group vitamins E53.8 [facility] [address] [facility] [id number] [address] [place] [address] Sep, [facility] [address] [place] [id number] [address] [place] [address] Aug, Arthritis M19.90 [facility] [address] [place] [id number] [address] [place] [address] Aug, Hyperparathyroidism E21.3 [facility] [address] [address] Aug, Hyperparathyroidism E21.3 [facility] [address] [address] Aug, Arthritis M19.90 [facility] [address] [place] [id number] [address] [place] [address] Jul, Mass of throat R22.1 [facility] [address] [address] Jul, [facility] [address] [place] [id number] [address] [place] [address] Jul, Arthritis M19.90 [facility] [address] [place] [id number] [address] [place] [address] Jun, Arthritis M19.90 [facility] [address] [place] [id number] [address] [place] [address] Jun, [facility] [address] [place] [id number] [address] [place] [id number] Jun, Renal insufficiency N28.9 an d Parathyroid abnormality E21.5 [facility] [address] [facility] [id number] [address] [place] [phone] Jun, Medicare welcome exam Z00.00 ; Encounter for immunization Z23 ; Arthritis M19.90 ; Medicare annual wellness visit, initial Z00.00 ; Medicare annual wellness visit, subsequent Z00.00 and Deficiency of other specified B group vitamins E53.8 [facility] [address] [facility] [id number] [address] [place] [id number] 29 May, 2016 Renal insufficiency N28.9 an d Parathyroid abnormality E21.5 [facility] [address] [facility] [id number] [address] [place] [id number] May, Renal insufficiency N28.9 [facility] [address] [facility] [id number] [address] [place] [phone] May, Renal insufficiency N28.9 [facility] [address] [facility] [id number] [address] [place] [phone] May, [facility] [address] [facility] [id number] [address] [place] [phone] Apr, [facility] [address] [facility] [id number] [address] [place] [id number] Apr, [facility] [address] [facility] [id number] [address] [place] [phone] 14 Apr, 2016 Mass of throat R22.1 [facility] [address] [facility] [id number] [address] [place] [phone] Apr, [facility] [address] [facility] [id number] [address] [place] [phone] Apr, Mass of throat R22.1 [facility] [address] [facility] [id number] [address] [place] [phone] 04 Apr, 2016 Mass of throat R22.1 [facility] [address] [facility] [id number] [address] [place] [phone] Mar, [facility] [address] [facility] [id number] [address] [place] [id number] Mar, [facility] [address] [facility] [id number] [address] [place] [phone] Mar, [facility] [address] [id number] [address] [place] [address] Mar, Parathyroid abnormality E21. 5 and Encounter for immunization Z23 [facility] [address] [id number] [address] [place] [address] 17 Mar, 2016 [facility] [address] [id number] [address] [place] [address] Mar, [facility] [address] [id number] [address] [place] [address] 21 Feb, 2016 Renal insufficiency N28.9 an d Hyperparathyroidism E21.3 [facility] [address] [id number] [address] [place] [address] 19 Feb, 2016 [facility] [address] [id number] [address] [place] [address] 15 Feb, 2016 Renal insufficiency N28.9 an d Hyperparathyroidism E21.3 [facility] [address] [id number] [address] [place] [address] 14 Feb, 2016 [facility] [address] [id number] [address] [place] [address] 12 Feb, 2016 [facility] [address] [id number] [address] [place] [id number] 09 Feb, 2016 [facility] [address] [id number] [address] [place] [address] Jan, [facility] [address] [id number] [address] [place] [address] Jan, Arthritis M19.90 ; Lumbago w ith sciatica, right side M54.41 and Other chronic pain G89.29 [facility] [address] [id number] [address] [place] [address] Jan, [facility] [address] [id number] [address] [place] [address] Dec, Arthritis M19.90 ; Lumbago w ith sciatica, right side M54.41 and Other chronic pain G89.29 [id number] [place] [id number] [address] [place] [address] 16 Nov, 2015 Deficiency of other specifie d B group vitamins E53.8 ; Primary insomnia F51.01 ; Mood disorder F39 and Lumbago with sciatica, right side M54.41 [place] [address] [place] [id number] [address] [place] [address] 13 Nov, 2015 Hyperparathyroidism E21.3 [place] [address] [place] [id number] [address] [place] [address] Nov, Unspecified kidney failure N 19 and Hyperparathyroidism E21.3 [place] [address] [place] [id number] [address] [place] [address] October, Hyperparathyroidism E21.3 [place] [address] [place] [id number] [address] [place] [address] October, [place] [address] [place] [id number] [address] [place] [address] October, Hyperparathyroidism E21.3 [place] [address] [place] [id number] [address] [place] [address] October, Hyperparathyroidism E21.3 [place] [address] [place] [id number] [address] [place] [address] Sep, Hyperparathyroidism E21.3 ; Hypercholesterolemia E78.0 and Arthritis M19.90 [facility] [address] [facility] [id number] [address] [place] [address] Aug, [place] [address] [facility] [id number] [address] [place] [address] 11 Aug, 2015 Deficiency of other specifie d B group vitamins E53.8 [place] [address] [facility] [id number] [address] [place] [address] 07 Aug, 2015 [place] [address] [place] [id number] [address] [place] [address] Jul, Urinary frequency R35.0 [facility] [address] [id number] [address] [place] [address] Jul, Urinary frequency R35.0 [facility] [address] [id number] [address] [place] [address] Jul, [facility] [address] [id number] [address] [place] [address] Jul, [facility] [address] [id number] [address] [place] [address] Jun, Pain in left knee M25.562 [facility] [address] [id number] [address] [place] [address] Jun, [facility] [address] [facility] [id number] [address] [place] [address] May, Swelling of left knee joint M25.462 [facility] [address] [id number] [address] [place] [address] May, [facility] [address] [facility] [id number] [address] [place] [address] May, [facility] [address] [facility] [id number] [address] [place] [address] May, [facility] [address] [facility] [id number] [address] [place] [address] Apr, Renal insufficiency N28.9 an d Chronic kidney disease, stage 4 (severe) N18.4 [facility] [address] [id number] [address] [place] [address] Apr, Unspecified kidney failure N 19 [facility] [address] [facility] [id number] [address] [place] [address] Apr, Unspecified kidney failure N 19 [facility] [address] [facility] [id number] [address] [place] [address] Apr, [facility] [address] [id number] [address] [place] [address] Apr, Hyperparathyroidism, unspeci fied 252.00 [facility] [address] [id number] [address] [place] [address] Apr, [facility] [address] [facility] [id number] [address] [place] [address] Mar, [facility] [address] [id number] [address] [place] [address] Mar, [facility] [address] [facility] [id number] [address] [place] [address] Mar, Hyperparathyroidism, unspeci fied 252.00 [facility] [address] [facility] [id number] [address] [place] [address] Feb, [facility] [address] [facility] [id number] [place] [address] Feb, Otalgia 388.70 [facility] [address] [facility] [id number] [address] [place] [address] Feb, [facility] [address] [facility] [id number] [place] [address] Feb, [facility] [address] [facility] [id number] [address] [place] [address] Jan, [facility] [address] [facility] [id number] [address] [place] [address] Jan, Hyperparathyroidism, unspeci fied 252.00 [facility] [address] [facility] [id number] [address] [place] [address] Jan, [facility] [address] [facility] [id number] [place] [address] Jan, Other B-complex deficiencies 266.2 and Hyperparathyroidism, unspecified 252.00 [facility] [address] [facility] [id number] [address] [place] [address] Jan, [facility] [address] [id number] [address] [place] [address] Jan, [facility] [address] [id number] [address] [place] [address] Jan, [facility] [address] [id number] [address] [place] [address] Dec, [facility] [address] [id number] [address] [place] [address] Dec, [facility] [address] [id number] [address] [place] [address] Dec, [facility] [address] [id number] [address] [place] [address] Nov, Routine check-up V70.0 and P re-op exam V72.84 [facility] [address] [id number] [address] [place] [address] Nov, [facility] [address] [id number] [address] [place] [address] Nov, [facility] [address] [id number] [address] [place] [address] October, [facility] [address] [id number] [address] [place] [address] October, Other B-complex deficiencies 266.2 [facility] [address] [id number] [address] [place] [address] October, [facility] [address] [id number] [address] [place] [address] Sep, [facility] [address] [id number] [address] [place] [address] Sep, [facility] [address] [id number] [address] [place] [address] Aug, [facility] [address] [id number] [address] [place] [address] Aug, [facility] [address] [id number] [address] [place] [address], [place] [address] 17 Aug, 2014 [facility] [address] [id number] [address] [place] [address], [place] [address] Aug, 2014 [facility] [address] [id number] [address] [place] [address], [place] [address] Aug, 2014 [facility] [address] [id number] [address] [place] [address], [place] [address] Aug, 2014 [facility] [address] [id number] [address] [place] [address], [place] [address] Jul, 2014 [facility] [address] [id number] [address] [place] [address], [place] [address] Jul, 2014 [facility] [address] [id number] [address] [place] [address], [place] [address] Jul, 2014 [facility] [address] [id number] [address] [place] [address], [place] [address] Jul, 2014 [facility] [address] [id number] [address] [place] [address], [place] [address] Jul, 2014 [facility] [address] [id number] [address] [place] [address], [place] [address] Jul, 2014 [facility] [address] [id number] [address] [place] [address], [place] [address] Jul, 2014 [facility] [address] [id number] [address] [place] [address], [place] [address] Jul, 2014 [facility] [address] [id number] [address] [place] [address], [place] [address] Jul, 2014 [facility] [address] [id number] [address] [place] [address], [place] [address] Jul, 2014 [facility] [address] [id number] [address] [place] [address], [place] [address] Jul, 2014 [facility] [address] [id number] [address] [place] [address], [place] [address] 06 Jul, 2014 [facility] [address] [id number] [address] [place] [address], [place] [address] Jul, [facility] [address] [id number] [address] [place] [address], [place] [address] Jul, [facility] [address] [id number] [address] [place] [address], [place] [address] Jun, [facility] [address] [id number] [address] [place] [address], [place] [address] Jun, [facility] [address] [id number] [address] [place] [address], [place] [address] Jun, [facility] [address] [id number] [address] [place] [address], [place] [address] Jun, [facility] [address] [id number] [address] [place] [address], [place] [address] Jun, [facility] [address] [id number] [address] [place] [address], [place] [address] Jun, [facility] [address] [id number] [address] [place] [address], [place] [address] Jun, [facility] [address] [id number] [address] [place] [address], [place] [address] Jun, [facility] [address] [id number] [address] [place] [address], [place] [address] Jun, [facility] [address] [id number] [address] [place] [address], [place] [address] Jun, [facility] [address] [id number] [address] [place] [address], [place] [address] Jun, [facility] [address] [id number] [address] [place] [address], [place] [address] Jun, [facility] [address] [id number] [address] [place] [address], [place] [address] Jun, [facility] [address] [id number] [address] [place] [address], [place] [address] Jun, [facility] [address] [id number] [address] [place] [address], [place] [address] May, [facility] [address] [id number] [address] [place] [address], [place] [address] May, [facility] [address] [id number] [address] [place] [address], [place] [address] May, [facility] [address] [id number] [address] [place] [address], [place] [address] May, [facility] [address] [id number] [address] [place] [address], [place] [address] Apr, [facility] [address] [id number] [address] [place] [address], [place] [address] Apr, [facility] [address] [id number] [address] [place] [address], [place] [address] Apr, [facility] [address] [id number] [address] [place] [address], [place] [address] Apr, [facility] [address] [id number] [address] [place] [address], [place] [address] Apr, [facility] [address] [id number] [address] [place] [address], [place] [address] Apr, [facility] [address] [id number] [address] [place] [address], [place] [address] Mar, [facility] [address] [id number] [address] [place] [address], [place] [address] Mar, [facility] [address] [id number] [address] [place] [address], [place] [address] Mar, [facility] [address] [id number] [address] [place] [address], [place] [address] Mar, [facility] [address] [id number] [address] [place] [address] 15 Mar, 2014 [facility] [address] [id number] [address] [place] [address], [place] [address] 15 Mar, 2014 [facility] [address] [id number] [address] [place] [address] 13 Mar, 2014 [facility] [address] [id number] [address] [place] [address], [place] [address] 13 Mar, 2013 [facility] [address] [id number] [address] [place] [address] 07 Mar, 2013 [facility] [address] [id number] [address] [place] [address], [place] [address] 07 Mar, 2013 [facility] [address] [id number] [address] [place] [address], [place] [address] 07 Mar, 2013 [facility] [address] [id number] [address] [place] [address] 07 Mar, 2013 [facility] [address] [id number] [address] [place] [address], [place] [address] 06 Mar, 2014 [facility] [address] [id number] [address] [place] [address] 26 Sep, 2013 [facility] [address] [id number] [address] [place] [address] 26 Sep, 2013 [facility] [address] [id number] [address] [place] [address], [place] [address] 23 Sep, 2013 [facility] [address] [id number] [address] [place] [address] 23 Sep, 2013 [facility] [address] [id number] [address] [place] [address], [place] [address] 19 Sep, 2013 [facility] [address] [id number] [address] [place] [address] 19 Sep, 2013 [facility] [address] [id number] [address] [place] [address] 13 Sep, 2013 [facility] [address] [id number] [address] [address] 13 Feb, 2014 [facility] [address] [id number] [address] [address] 12 Feb, 2014 [facility] [address] [id number] [address] [address] Feb, [facility] [address] [id number] [address] [place] [address], [place] [address] Jan, [facility] [address] [id number] [address] [place] [address], [place] [address] Jan, [facility] [address] [id number] [address] [place] [address], [place] [address] Dec, [facility] [address] [id number] [address] [place] [address], [place] [address] Dec, [facility] [address] [id number] [address] [place] [address], [place] [address] Dec, [facility] [address] [id number] [address] [place] [address], [place] [address] Dec, [facility] [address] [id number] [address] [place] [address], [place] [address] Dec, [facility] [address] [id number] [address] [place] [address], [place] [address] Dec, [facility] [address] [id number] [address] [place] [address], [place] [address] Nov, [facility] [address] [id number] [address] [place] [address], [place] [address] Nov, [facility] [address] [id number] [address] [place] [address], [place] [address] Nov, [facility] [address] [id number] [address] [place] [address], [place] [address] Nov, [facility] [address] [id number] [address] [place] [address], [place] [address] October, [facility] [address] [id number] [address] [address] October, [facility] [address] [id number] [address] [address] October, [facility] [address] [id number] [address] [address] October, [facility] [address] [id number] [address] [place] [address], [place] [address] October, [facility] [address] [id number] [address] [place] [address], [place] [address] October, [facility] [address] [id number] [address] [place] [address], [place] [address] October, [facility] [address] [id number] [address] [place] [address], [place] [address] October, [facility] [address] [id number] [address] [place] [address], [place] [address] October, [facility] [address] [id number] [address] [place] [address], [place] [address] October, [facility] [address] [id number] [address] [place] [address], [place] [address] October, [facility] [address] [id number] [address] [place] [address], [place] [address] October, [facility] [address] [id number] [address] [place] [address], [place] [address] October, [facility] [address] [id number] [address] [place] [address], [place] [address] October, [facility] [address] [id number] [address] [place] [address], [place] [address] October, [facility] [address] [id number] [address] [place] [address], [place] [address] October, [facility] [address] [id number] [address] [address] Sep, [facility] [address] [id number] [address] [place] [address], [place] [address] Sep, [facility] [address] [id number] [address] [address] Sep, [facility] [address] [id number] [address] [place] [address], [place] [address] Sep, [facility] [address] [id number] [address] [place] [address], [place] [address] Sep, [facility] [address] [id number] [address] [place] [address], [place] [address] Sep, [facility] [address] [id number] [address] [place] [address], [place] [address] Aug, [facility] [address] [id number] [address] [place] [address], [place] [address] Aug, [facility] [address] [id number] [address] [place] [address], [place] [address] Aug, [facility] [address] [id number] [address] [place] [address], [place] [address] Aug, [facility] [address] [id number] [address] [place] [address], [place] [address] Aug, [facility] [address] [id number] [address] [place] [address], [place] [address] Aug, [facility] [address] [id number] [address] [place] [address], [place] [address] Jul, [facility] [address] [id number] [address] [place] [address], [place] [address] Jul, [facility] [address] [id number] [address] [place] [address], [place] [address] Jul, [facility] [address] [id number] [address] [place] [address], [place] [address] Jul, [facility] [address] [id number] [address] [place] [address], [place] [address] Jun, [facility] [address] [id number] [address] [place] [address], [place] [address] Jun, [facility] [address] [id number] [address] [place] [address], [place] [address] May, [facility] [address] [id number] [address] [place] [address], [place] [address] May, [facility] [address] [id number] [address] [place] [address], [place] [address] May, [facility] [address] [id number] [address] [place] [address], [place] [address] May, [facility] [address] [id number] [address] [place] [address], [place] [address] May, [facility] [address] [id number] [address] [place] [address] Apr, [facility] [address] [id number] [address] [place] [address], [place] [address] Apr, [facility] [address] [id number] [address] [place] [address] Apr, [facility] [address] [id number] [address] [place] [address] Apr, [facility] [address] [id number] [address] [place] [address] Apr, [facility] [address] [id number] [address] [place] [address] Apr, [facility] [address] [id number] [address] [place] [address] 15 Mar, 2013 [facility] [address] [id number] [address] [place] [address] 15 Mar, 2013 [facility] [address] [id number] [address] [place] [address] 14 Mar, 2013 [facility] [address] [id number] [address] [place] [address], [place] [address] 14 Mar, 2013 [facility] [address] [id number] [address] [place] [address], [place] [address] 11 Mar, 2013 [facility] [address] [id number] [address] [place] [address], [place] [address] 11 Mar, 2013 [facility] [address] [id number] [address] [place] [address], [place] [address] 23 Feb, 2013 [facility] [address] [id number] [address] [place] [address], [place] [address] Feb, [facility] [address] [id number] [address] [place] [address], [place] [address] Feb, [facility] [address] [id number] [address] [place] [address], [place] [address] Jan, [facility] [address] [id number] [address] [place] [address], [place] [address] Jan, [facility] [address] [id number] [address] [place] [address], [place] [address] Jan, [facility] [address] [id number] [address] [place] [address], [place] [address] Jan, [facility] [address] [id number] [address] [place] [address], [place] [address] Jan, [facility] [address] [id number] [address] [place] [address], [place] [address] Jan, [facility] [address] [id number] [address] [place] [address], [place] [address] Dec, [facility] [address] [id number] [address] [place] [address], [place] [address] Dec, [facility] [address] [id number] [address] [place] [address], [place] [address] Dec, [facility] [address] [id number] [address] [place] [address], [place] [address] Dec, [facility] [address] [id number] [address] [place] [address], [place] [address] Dec, [facility] [address] [id number] [address] [place] [address], [place] [address] Dec, [facility] [address] [id number] [address] [place] [address], [place] [address] Nov, [facility] [address] [id number] [address] [place] [address], [place] [address] Nov, [facility] [address] [id number] [address] [place] [address], [place] [address] Nov, [facility] [address] [id number] [address] [place] [address], [place] [address] Nov, [facility] [address] [id number] [address] [place] [address], [place] [address] Nov, [facility] [address] [id number] [address] [place] [address], [place] [address] Nov, [facility] [address] [id number] [address] [place] [address], [place] [address] October, [facility] [address] [id number] [address] [place] [address], [place] [address] October, [facility] [address] [id number] [address] [place] [address], [place] [address] October, [facility] [address] [id number] [address] [place] [address], [place] [address] October, [facility] [address] [id number] [address] [place] [address], [place] [address] October, [facility] [address] [id number] [address] [place] [address], [place] [address] Sep, [facility] [address] [id number] [address] [place] [address], [place] [address] 23 Sep, 2012 [facility] [address] [id number] [address] [place] [address], [place] [address] Sep, [facility] [address] [id number] [address] [place] [address], [place] [address] 18 Sep, 2012 [facility] [address] [id number] [address] [place] [address], [place] [address] Sep, [facility] [address] [id number] [address] [place] [address], [place] [address] Aug, [facility] [address] [id number] [address] [place] [address], [place] [address] Aug, [facility] [address] [id number] [address] [place] [address], [place] [address] Aug, [facility] [address] [id number] [address] [place] [address], [place] [address] Jul, [facility] [address] [id number] [address] [place] [address], [place] [address] Jul, [facility] [address] [id number] [address] [place] [address], [place] [address] Jul, [facility] [address] [id number] [address] [place] [address], [place] [address] 08 Jul, 2012 [facility] [address] [id number] [address] [place] [address], [place] [address] 06 Jul, 2012 [facility] [address] [id number] [address] [place] [address], [place] [address] 05 Jul, 2012 [facility] [address] [id number] [address] [place] [address], [place] [address] 15 Jun, 2012 [facility] [address] [id number] [address] [place] [address], [place] [address] Apr, [facility] [address] [id number] [address] [place] [address], [place] [address] Apr, [facility] [address] [id number] [address] [place] [address], [place] [address] Apr, [facility] [address] [id number] [address] [place] [address], [place] [address] Apr, [facility] [address] [id number] [address] [place] [address], [place] [address] Mar, [facility] [address] [id number] [address] [place] [address], [place] [address] Mar, [facility] [address] [id number] [address] [place] [address], [place] [address] Mar, [facility] [address] [id number] [address] [place] [address], [place] [address] Mar, [facility] [address] [id number] [address] [place] [address], [place] [address] Mar, [facility] [address] [id number] [address] [place] [address], [place] [address] Feb, [facility] [address] [id number] [address] [place] [address], [place] [address] Jan, [facility] [address] [id number] [address] [place] [address], [place] [address] Jan, [facility] [address] [id number] [address] [place] [address], [place] [address] Jan, [facility] [address] [id number] [address] [place] [address], [place] [address] Dec, [facility] [address] [id number] [address] [place] [address], [place] [address] Nov, [facility] [address] [id number] [address] [place] [address], [place] [address] Nov, [facility] [address] [id number] [address] [place] [address], [place] [address] Nov, [facility] [address] [id number] [address] [place] [address], [place] [address] Nov, [facility] [address] [facility] [id number] [address] [place] [address] Nov, [facility] [address] [facility] [id number] [address] [place] [address] October, [facility] [address] [facility] [id number] [address] [place] [address] October, [facility] [address] [facility] [id number] [address] [place] [address] October, [facility] [address] [facility] [id number] [address] [place] [address] October, [facility] [address] [facility] [id number] [address] [place] [address] October, IMMUNIZATIONS No Known Immunizations SOCIAL HISTORY [...]
--- OUTSIDE RECORDS SUMMARY | 2020-01-25 08:12 | XMS REPORT ---
Author Author Velma CORDERO Organization [facility] Address [address] [place] [address] Care Team Providers Care Camp Counselor Name Role Phone STEPHAN CORDERO Unavailable PROBLEMS Type Condition ICD9-CM Code XFV69-WC Code Onset Dates Condition S tatus SNOMED Code Problem Corns L84 Active 528802040 Problem Primary insomnia F51.01 Active 397 2004 Problem Hyperparathyroidism E21.3 Active 45753455 Problem Hypercholesteremia E78.0 Active 1 6272122 Problem Mood disorder F39 Active 261778 05 Problem Arthritis M19.90 Active 2705164 Problem 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 Active 14844206 Problem Myalgia M79.1 Active 93128840 Problem Chronic kidney disease, stage 4 (severe) N18.4 Active 906969533 Problem Primary osteoarthritis of left knee M17.12 Active [id number] Problem Irritable bowel syndrome with both constipation and diarrh ea K58.2 Active 02157682 Problem Other chronic pain G89.29 Active 8 8221237 Problem BPV (benign positional vertigo), bilateral H81.13 Active 344306325 Problem Hyperparathyroidism, unspecified E21.3 Active 41212244 Problem 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 Active 23166334 Problem Body mass index (BMI) of 40.0-44.9 in adult Z68.41 Active 220829094 Problem Unspecified kidney failure N19 Act chip 19180472 Problem 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 Active 732615099 Problem Unspecified inflammatory spo ndylopathy, sacral and sacrococcygeal region M46.98 Active 02006138 ALLERGIES No Information ENCOUNTERS Encounter Location Date Diagnosis [facility] [address] [facility] [id number] [address] [place] [address] 16 Dec, 2019 Hyperparathyroidism, unspeci fied E21.3 [facility] [address] [facility] [id number] [address] [place] [address] Dec, [place] [address] [place] [id number] [address] [place] [address] Nov, Hyperparathyroidism, unspeci fied E21.3 [place] [address] [place] [id number] [address] [place] [address] Nov, Hyperparathyroidism, unspeci fied E21.3 [place] [address] [address] Nov, Chronic kidney disease, stag e 4 (severe) N18.4 ; Hyperparathyroidism, unspecified E21.3 and Left otitis media with effusion H65.92 [place] [address] [address] Nov, Hyperparathyroidism, unspeci fied E21.3 [place] [address] [address] October, [place] [address] [address] October, Hyperparathyroidism, unspeci fied E21.3 [place] [address] [place] [id number] [address] [place] [address] October, Hyperparathyroidism, unspeci fied E21.3 [place] [address] [place] [id number] [address] [place] [address] Sep, Hyperparathyroidism, unspeci fied E21.3 [place] [id number] [place] [address] Aug, Hyperparathyroidism, unspeci fied E21.3 [place] [address] [place] [id number] [address] [place] [address] Aug, Pain in left knee M25.562 ; Other chronic pain G89.29 ; Unspecified inflammatory spondylopathy, sacral and sacrococcygeal region M46.98 ; Chronic kidney disease, stage 4 (severe) N18.4 and Hyperparathyroidism, unspecified E21.3 [place] [address] [place] [id number] [address] [place] [address] Jul, [facility] [address] [facility] [id number] [address] [place] [address] Jul, Arthritis M19.90 [facility] [address] [facility] [id number] [address] [place] [address] Jun, Knee pain, left M25.562 [facility] [address] [facility] [id number] [address] [place] [address] May, Arthritis M19.90 [facility] [address] [facility] [id number] [address] [place] [address] Apr, Well woman exam without gyne cological exam Z00.00 and Screening for breast cancer Z12.39 [place] [address] [facility] [id number] [address] [place] [address] Mar, Arthritis M19.90 [facility] [address] [facility] [id number] [address] [place] [address] Mar, Arthritis M19.90 [facility] [address] [facility] [id number] [address] [place] [address] Mar, [facility] [address] [facility] [id number] [address] [place] [address] Mar, Arthritis M19.90 and Encount er for immunization Z23 [facility] [address] [facility] [id number] [address] [place] [address] Feb, Arthritis M19.90 [facility] [address] [facility] [id number] [address] [place] [address] Feb, [facility] [address] [facility] [id number] [address] [place] [address] Feb, Other specified disorders of bone density and structure, unspecified site M85.80 [facility] [address] [facility] [id number] [address] [place] [address] Jan, Arthritis M19.90 [facility] [address] [id number] [address] [place] [address] Dec, Arthritis M19.90 [facility] [address] [id number] [address] [place] [address] Nov, Inflammatory spondylopathy o f sacral region M46.98 [facility] [address] [id number] [address] [place] [address] Nov, [facility] [address] [facility] [id number] [address] [place] [address] 14 Nov, 2018 Labyrinthitis of left ear H8 3.02 [facility] [address] [facility] [id number] [address] [place] [address] 03 Nov, 2018 Arthritis M19.90 [facility] [address] [facility] [id number] [address] [place] [address] 15 Sep, 2018 Arthritis M19.90 [facility] [address] [facility] [id number] [address] [place] [address] Sep, Renal insufficiency N28.9 an d Unspecified kidney failure N19 [facility] [address] [facility] [id number] [address] [place] [address] Sep, Renal insufficiency N28.9 an d Unspecified kidney failure N19 [facility] [address] [facility] [id number] [address] [place] [address] Sep, Arthritis M19.90 [facility] [address] [facility] [id number] [address] [place] [address] Aug, Exercise counseling Z71.82 [facility] [address] [facility] [id number] [address] [place] [address] Aug, [facility] [address] [facility] [id number] [address] [place] [address] Jul, Labyrinthitis of left ear H8 3.02 [facility] [address] [facility] [id number] [address] [place] [address] 22 Jul, 2018 Labyrinthitis of left ear H8 3.02 [facility] [address] [facility] [id number] [address] [place] [address] 19 Jul, 2018 Exercise counseling Z71.82 [facility] [address] [facility] [id number] [address] [place] [address] 18 Jul, 2018 [place] [address] [facility] [id number] [address] [place] [address] 14 Jul, 2018 Arthritis M19.90 [place] [address] [facility] [id number] [address] [place] [address] 13 Jul, 2018 Encounter for Medicare annua l wellness exam Z00.00 ; Chronic kidney disease, stage 4 (severe) N18.4 ; Body mass index (BMI) of 40.0-44.9 in adult Z68.41 ; Hyperparathyroidism E21.3 and BMI 40.0-44.9, adult Z68.41 [place] [address] [place] [id number] [address] [place] [address] 13 Jul, 2018 Encounter for Medicare annua l wellness exam Z00.00 ; Chronic kidney disease, stage 4 (severe) N18.4 ; Hyperparathyroidism E21.3 ; Body mass index (BMI) of 40.0-44.9 in adult Z68.41 and Encounter for immunization Z23 [place] [id number] [place] [id number] [address] [place] [address] 11 Jul, 2018 Tail bone pain M53.3 [place] [id number] [facility] [id number] [address] [place] [address] Jun, Exercise counseling Z71.82 [place] [address] [facility] [id number] [address] [place] [address] Jun, Labyrinthitis of left ear H8 3.02 [place] [id number] [facility] [id number] [address] [place] [address] Jun, Tail bone pain M53.3 ; Irrit able bowel syndrome with both constipation and diarrhea K58.2 and Dysfunction of left eustachian tube H69.82 [facility] [address] [id number] [address] [place] [address] Jun, Exercise counseling Z71.82 [facility] [address] [id number] [address] [place] [address] Jun, Arthritis M19.90 [facility] [address] [id number] [address] [place] [address] Jun, Irritable bowel syndrome wit h both constipation and diarrhea K58.2 ; Tail bone pain M53.3 and Dysfunction of left eustachian tube H69.82 [facility] [address] [id number] [address] [place] [address] Jun, Exercise counseling Z71.82 [place] [id number] [id number] [address] [place] [address] Jun, Exercise counseling Z71.82 [facility] [address] [id number] [address] [place] [address] Jun, Labyrinthitis of left ear H8 3.02 [facility] [address] [id number] [address] [place] [address] May, Exercise counseling Z71.82 [facility] [address] [id number] [address] [place] [address] May, Arthritis M19.90 [facility] [address] [id number] [address] [place] [address] May, Exercise counseling Z71.82 [facility] [address] [id number] [address] [place] [address] May, Exercise counseling Z71.82 [facility] [address] [id number] [address] [place] [address] May, Labyrinthitis of left ear H8 3.02 [facility] [address] [id number] [address] [place] [address] May, Exercise counseling Z71.82 [facility] [address] [facility] [id number] [address] [place] [address] Apr, Arthritis M19.90 [facility] [address] [facility] [id number] [address] [place] [address] Apr, Exercise counseling Z71.82 [place] [address] [facility] [id number] [address] [place] [address] Apr, Exercise counseling Z71.82 [place] [address] [facility] [id number] [address] [place] [address] Apr, Primary osteoarthritis of le ft knee M17.12 [place] [address] [place] [id number] [address] [place] [address] Apr, Labyrinthitis of left ear H8 3.02 [place] [address] [place] [id number] [address] [place] [address] Mar, Arthritis M19.90 [place] [address] [facility] [id number] [address] [place] [address] Mar, [place] [address] [address] Mar, Chronic kidney disease, stag e 4 (severe) N18.4 [place] [address] [address] Mar, Chronic kidney disease, stag e 4 (severe) N18.4 [place] [address] [facility] [id number] [address] [place] [address] Mar, Labyrinthitis of left ear H8 3.02 [place] [address] [place] [id number] [address] [place] [address] 05 Mar, 2018 Chronic kidney disease, stag e 4 (severe) N18.4 ; Knee pain, left anterior M25.562 ; Deficiency of other specified B group vitamins E53.8 and Encounter for immunization Z23 [place] [address] [place] [id number] [address] [place] [address] Mar, Arthritis M19.90 [facility] [address] [place] [id number] [address] [place] [address] Feb, Labyrinthitis of left ear H8 3.02 [facility] [address] [facility] [id number] [address] [place] [address] Feb, Arthritis M19.90 [facility] [address] [facility] [id number] [address] [place] [address] Jan, Labyrinthitis of left ear H8 3.02 [facility] [address] [place] [id number] [address] [place] [address] Jan, Arthritis M19.90 [facility] [address] [place] [id number] [address] [place] [address] Dec, Labyrinthitis of left ear H8 3.02 [facility] [address] [place] [id number] [address] [place] [address] Nov, Arthritis M19.90 [facility] [address] [place] [id number] [address] [place] [address] Nov, Labyrinthitis of left ear H8 3.02 [facility] [address] [place] [id number] [address] [place] [address] Nov, BMI 40.0-44.9, adult Z68.41 ; Chronic kidney disease, stage 4 (severe) N18.4 and Acute right-sided thoracic back pain M54.6 [facility] [address] [place] [id number] [address] [place] [address] October, Labyrinthitis of left ear H8 3.02 and Arthritis M19.90 [facility] [address] [place] [id number] [address] [place] [address] Sep, BPV (benign positional verti go), bilateral H81.13 ; Dysfunction of left eustachian tube H69.82 and BMI 40.0-44.9, adult Z68.41 [facility] [address] [facility] [id number] [address] [place] [address] Sep, Labyrinthitis of left ear H8 3.02 and Arthritis M19.90 [facility] [address] [id number] [address] [place] [address] Sep, [facility] [address] [facility] [id number] [address] [place] [address] Sep, [facility] [address] [id number] [address] [place] [address] Sep, Chronic kidney disease, stag e 4 (severe) N18.4 [facility] [address] [facility] [id number] [address] [place] [address] Sep, Chronic kidney disease, stag e 4 (severe) N18.4 [facility] [address] [facility] [id number] [address] [place] [address] Aug, Labyrinthitis of left ear H8 3.02 and Arthritis M19.90 [facility] [address] [id number] [address] [place] [address] Aug, [facility] [address] [facility] [id number] [address] [place] [address] Jul, [facility] [address] [id number] [address] [place] [address] Jul, Arthritis M19.90 and Labyrin thitis of left ear H83.02 [facility] [address] [id number] [address] [place] [address] Jul, [facility] [address] [id number] [address] [place] [address] Jun, [facility] [address] [id number] [address] [place] [address] Jun, Arthritis M19.90 and Labyrin thitis of left ear H83.02 [place] [address] [place] [id number] [address] [place] [address] Jun, Pre-op evaluation Z01.818 ; BMI 40.0-44.9, adult Z68.41 and Encounter for immunization Z23 [place] [address] [address] May, Arthritis M19.90 and Labyrin thitis of left ear H83.02 [place] [address] [address] Apr, Labyrinthitis of left ear H8 3.02 [place] [address] [address] Apr, Arthritis M19.90 and Labyrin thitis of left ear H83.02 [place] [address] [address] Mar, Arthritis M19.90 and Labyrin thitis of left ear H83.02 [place] [address] [address] Mar, Chronic kidney disease, stag e 4 (severe) N18.4 [place] [address] [address] Feb, Arthritis M19.90 and Labyrin thitis of left ear H83.02 [place] [address] [address] Jan, Labyrinthitis of left ear H8 3.02 and Deficiency of other specified B group vitamins E53.8 [place] [address] [address] Dec, Arthritis M19.90 [place] [address] [place] [id number] [place] [address] Dec, BPV (benign positional verti go), bilateral H81.13 [place] [address] [place] [address] Dec, [facility] [address] [facility] [id number] [address] [place] [address] Dec, [facility] [address] [facility] [id number] [address] [place] [address] Dec, [facility] [address] [facility] [id number] [address] [place] [address] Nov, Arthritis M19.90 and Deficie ncy of other specified B group vitamins E53.8 [facility] [address] [facility] [id number] [address] [place] [address] Nov, Arthritis M19.90 [facility] [address] [facility] [id number] [address] [place] [address] Nov, Hyperparathyroidism E21.3 [facility] [address] [facility] [id number] [address] [place] [address] October, [facility] [address] [facility] [id number] [address] [place] [address] October, Hyperparathyroidism E21.3 [facility] [address] [facility] [id number] [address] [place] [address] October, [facility] [address] [facility] [id number] [address] [place] [address] October, Renal insufficiency N28.9 an d Hyperparathyroidism E21.3 [facility] [address] [facility] [id number] [address] [place] [address] October, [facility] [address] [facility] [id number] [address] [place] [address] October, Renal insufficiency N28.9 an d Hyperparathyroidism E21.3 [facility] [address] [facility] [id number] [address] [place] [address] October, Arthritis M19.90 [facility] [address] [facility] [id number] [address] [place] [address] Sep, [facility] [address] [facility] [id number] [address] [place] [address] Sep, Lumbar neuritis M54.16 ; Tho racic abscess J86.9 and Deficiency of other specified B group vitamins E53.8 [facility] [address] [facility] [id number] [address] [place] [address] Sep, [facility] [address] [place] [id number] [address] [place] [address] Aug, Arthritis M19.90 [facility] [address] [place] [id number] [address] [place] [address] Aug, Hyperparathyroidism E21.3 [facility] [address] [address] Aug, Hyperparathyroidism E21.3 [facility] [address] [address] Aug, Arthritis M19.90 [facility] [address] [place] [id number] [address] [place] [address] Jul, Mass of throat R22.1 [facility] [address] [address] Jul, [facility] [address] [place] [id number] [address] [place] [address] Jul, Arthritis M19.90 [facility] [address] [place] [id number] [address] [place] [id number] Jun, Arthritis M19.90 [facility] [address] [place] [place] [id number] [address] [place] [phone] Jun, [facility] [address] [place] [id number] [address] [place] [phone] Jun, Renal insufficiency N28.9 an d Parathyroid abnormality E21.5 [facility] [address] [facility] [id number] [address] [place] [phone] Jun, Medicare welcome exam Z00.00 ; Encounter for immunization Z23 ; Arthritis M19.90 ; Medicare annual wellness visit, initial Z00.00 ; Medicare annual wellness visit, subsequent Z00.00 and Deficiency of other specified B group vitamins E53.8 [facility] [address] [facility] [id number] [address] [place] [id number] 29 May, 2016 Renal insufficiency N28.9 an d Parathyroid abnormality E21.5 [facility] [address] [facility] [id number] [address] [place] [phone] May, Renal insufficiency N28.9 [facility] [address] [facility] [id number] [address] [place] [phone] May, Renal insufficiency N28.9 [facility] [address] [facility] [id number] [address] [place] [phone] May, [facility] [address] [facility] [id number] [address] [place] [phone] Apr, [facility] [address] [facility] [id number] [address] [place] [phone] Apr, [facility] [address] [facility] [id number] [address] [place] [phone] 14 Apr, 2016 Mass of throat R22.1 [facility] [address] [facility] [id number] [address] [place] [phone] Apr, [facility] [address] [facility] [id number] [address] [place] [id number] Apr, Mass of throat R22.1 [facility] [address] [facility] [id number] [address] [place] [phone] 04 Apr, 2016 Mass of throat R22.1 [facility] [address] [facility] [id number] [address] [place] [phone] Mar, [facility] [address] [facility] [id number] [address] [place] [phone] Mar, [facility] [address] [facility] [id number] [address] [place] [phone] Mar, [facility] [address] [address] [id number] [address] [place] [id number] Mar, Parathyroid abnormality E21. 5 and Encounter for immunization Z23 [facility] [address] [id number] [address] [place] [id number] 17 Mar, 2016 [facility] [address] [id number] [address] [place] [id number] Mar, [facility] [address] [id number] [address] [place] [id number] 21 Feb, 2016 Renal insufficiency N28.9 an d Hyperparathyroidism E21.3 [facility] [address] [id number] [address] [place] [id number] 19 Feb, 2016 [facility] [address] [id number] [address] [place] [id number] 15 Feb, 2016 Renal insufficiency N28.9 an d Hyperparathyroidism E21.3 [facility] [address] [id number] [address] [place] [id number] 14 Feb, 2016 [facility] [address] [id number] [address] [place] [id number] 12 Feb, 2016 [facility] [address] [id number] [address] [place] [id number] 09 Feb, 2016 [facility] [address] [id number] [address] [place] [id number] Jan, [facility] [address] [id number] [address] [place] [phone] Jan, Arthritis M19.90 ; Lumbago w ith sciatica, right side M54.41 and Other chronic pain G89.29 [facility] [address] [id number] [address] [place] [address] Jan, [facility] [address] [id number] [address] [place] [address] Dec, Arthritis M19.90 ; Lumbago w ith sciatica, right side M54.41 and Other chronic pain G89.29 [place] [id number] [place] [id number] [address] [place] [address] 16 Nov, 2015 Deficiency of other specifie d B group vitamins E53.8 ; Primary insomnia F51.01 ; Mood disorder F39 and Lumbago with sciatica, right side M54.41 [place] [address] [place] [id number] [address] [place] [id number] 13 Nov, 2015 Hyperparathyroidism E21.3 [place] [address] [place] [id number] [address] [place] [address] Nov, Unspecified kidney failure N 19 and Hyperparathyroidism E21.3 [place] [address] [place] [id number] [address] [place] [address] October, Hyperparathyroidism E21.3 [place] [address] [place] [id number] [address] [place] [address] October, [place] [address] [place] [id number] [address] [place] [address] October, Hyperparathyroidism E21.3 [place] [address] [place] [id number] [address] [place] [address] October, Hyperparathyroidism E21.3 [place] [address] [place] [id number] [address] [place] [address] Sep, Hyperparathyroidism E21.3 ; Hypercholesterolemia E78.0 and Arthritis M19.90 [facility] [address] [facility] [id number] [address] [place] [address] Aug, [place] [address] [facility] [id number] [address] [place] [id number] 11 Aug, 2015 Deficiency of other specifie d B group vitamins E53.8 [place] [address] [facility] [id number] [address] [place] [id number] 07 Aug, 2015 [place] [address] [place] [id number] [address] [place] [address] Jul, Urinary frequency R35.0 [facility] [address] [id number] [address] [place] [id number] Jul, Urinary frequency R35.0 [facility] [address] [id number] [address] [place] [address] Jul, [facility] [address] [id number] [address] [place] [address] Jul, [facility] [address] [id number] [address] [place] [address] Jun, Pain in left knee M25.562 [facility] [address] [id number] [address] [place] [address] Jun, [facility] [address] [facility] [id number] [address] [place] [address] May, Swelling of left knee joint M25.462 [facility] [address] [id number] [address] [place] [address] May, [facility] [address] [facility] [id number] [address] [place] [phone] May, [facility] [address] [facility] [id number] [address] [place] [address] May, [facility] [address] [facility] [id number] [address] [place] [address] Apr, Renal insufficiency N28.9 an d Chronic kidney disease, stage 4 (severe) N18.4 [facility] [address] [id number] [address] [place] [id number] Apr, Unspecified kidney failure N 19 [facility] [address] [facility] [id number] [address] [place] [id number] Apr, Unspecified kidney failure N 19 [facility] [address] [facility] [id number] [address] [place] [address] Apr, [facility] [address] [id number] [address] [place] [address] Apr, Hyperparathyroidism, unspeci fied 252.00 [facility] [address] [id number] [address] [place] [address] Apr, [facility] [address] [facility] [id number] [address] [place] [address] Mar, [facility] [address] [id number] [address] [place] [id number] Mar, [facility] [address] [facility] [id number] [address] [place] [address] Mar, Hyperparathyroidism, unspeci fied 252.00 [facility] [address] [facility] [id number] [address] [place] [address] Feb, [facility] [address] [facility] [id number] [place] [address] Feb, Otalgia 388.70 [facility] [address] [facility] [id number] [address] [place] [address] Feb, [facility] [address] [facility] [id number] [place] [address] Feb, [facility] [address] [facility] [id number] [address] [place] [address] Jan, [facility] [address] [facility] [id number] [address] [place] [address] Jan, Hyperparathyroidism, unspeci fied 252.00 [facility] [address] [facility] [id number] [address] [place] [id number] Jan, [facility] [address] [facility] [id number] [place] [address] Jan, Other B-complex deficiencies 266.2 and Hyperparathyroidism, unspecified 252.00 [facility] [address] [facility] [id number] [address] [place] [address] Jan, [facility] [address] [id number] [address] [place] [id number] Jan, [facility] [address] [id number] [address] [place] [address] Jan, [facility] [address] [id number] [address] [place] [address] Dec, [facility] [address] [id number] [address] [place] [address] Dec, [facility] [address] [id number] [address] [place] [address] Dec, [facility] [address] [id number] [address] [place] [address] Nov, Routine check-up V70.0 and P re-op exam V72.84 [facility] [address] [id number] [address] [place] [address] Nov, [facility] [address] [id number] [address] [place] [address] Nov, [facility] [address] [id number] [address] [place] [id number] October, [facility] [address] [id number] [address] [place] [address] October, Other B-complex deficiencies 266.2 [facility] [address] [id number] [address] [place] [address] October, [facility] [address] [id number] [address] [place] [address] Sep, [facility] [address] [id number] [address] [place] [id number] Sep, [facility] [address] [id number] [address] [place] [address] Aug, [facility] [address] [id number] [address] [place] [address] Aug, [facility] [address] [id number] [address] [place] [address], [place] [address] 17 Aug, 2014 [facility] [address] [id number] [address] [place] [address], [place] [address] Aug, 2014 [facility] [address] [id number] [address] [place] [address], [place] [address] Aug, 2014 [facility] [address] [id number] [address] [place] [address], [place] [address] Aug, 2014 [facility] [address] [id number] [address] [place] [address], [place] [address] Jul, 2014 [facility] [address] [id number] [address] [place] [address], [place] [address] Jul, 2014 [facility] [address] [id number] [address] [place] [address], [place] [address] Jul, 2014 [facility] [address] [id number] [address] [place] [address], [place] [id number] Jul, 2014 [facility] [address] [id number] [address] [place] [address], [place] [id number] Jul, 2014 [facility] [address] [id number] [address] [place] [address], [place] [address] Jul, 2014 [facility] [address] [id number] [address] [place] [address], [place] [address] Jul, 2014 [facility] [address] [id number] [address] [place] [address], [place] [id number] Jul, 2014 [facility] [address] [id number] [address] [place] [address], [place] [address] Jul, 2014 [facility] [address] [id number] [address] [place] [address], [place] [address] Jul, 2014 [facility] [address] [id number] [address] [place] [address], [place] [address] Jul, 2014 [facility] [address] [id number] [address] [place] [address], [place] [id number] 06 Jul, 2014 [facility] [address] [id number] [address] [place] [address], [place] [address] Jul, [facility] [address] [id number] [address] [place] [address], [place] [address] Jul, [facility] [address] [id number] [address] [place] [address], [place] [id number] Jun, [facility] [address] [id number] [address] [place] [address], [place] [address] Jun, [facility] [address] [id number] [address] [place] [address], [place] [address] Jun, [facility] [address] [id number] [address] [place] [address], [place] [address] Jun, [facility] [address] [id number] [address] [place] [address], [place] [address] Jun, [facility] [address] [id number] [address] [place] [address], [place] [id number] Jun, [facility] [address] [id number] [address] [place] [address], [place] [address] Jun, [facility] [address] [id number] [address] [place] [address], [place] [address] Jun, [facility] [address] [id number] [address] [place] [address], [place] [address] Jun, [facility] [address] [id number] [address] [place] [address], [place] [address] Jun, [facility] [address] [id number] [address] [place] [address], [place] [address] Jun, [facility] [address] [id number] [address] [place] [address], [place] [address] Jun, [facility] [address] [id number] [address] [place] [address], [place] [address] Jun, [facility] [address] [id number] [address] [place] [address], [place] [address] Jun, [facility] [address] [id number] [address] [place] [address], [place] [address] May, [facility] [address] [id number] [address] [place] [address], [place] [address] May, [facility] [address] [id number] [address] [place] [address], [place] [address] May, [facility] [address] [id number] [address] [place] [address], [place] [address] May, [facility] [address] [id number] [address] [place] [address], [place] [address] Apr, [facility] [address] [id number] [address] [place] [address], [place] [address] Apr, [facility] [address] [id number] [address] [place] [address], [place] [address] Apr, [facility] [address] [id number] [address] [place] [address], [place] [address] Apr, [facility] [address] [id number] [address] [place] [address], [place] [address] Apr, [facility] [address] [id number] [address] [place] [address], [place] [address] Apr, [facility] [address] [id number] [address] [place] [address], [place] [address] Mar, [facility] [address] [id number] [address] [place] [address], [place] [address] Mar, [facility] [address] [id number] [address] [place] [address], [place] [address] Mar, [facility] [address] [id number] [address] [place] [address], [place] [address] Mar, [facility] [address] [id number] [address] [place] [address] 15 Mar, 2014 [facility] [address] [id number] [address] [place] [address], [place] [address] 15 Mar, 2014 [facility] [address] [id number] [address] [place] [id number] 13 Mar, 2014 [facility] [address] [id number] [address] [place] [address], [place] [id number] 13 Mar, 2013 [facility] [address] [id number] [address] [place] [id number] 07 Mar, 2013 [facility] [address] [id number] [address] [place] [address], [place] [address] 07 Mar, 2013 [facility] [address] [id number] [address] [place] [address], [place] [address] 07 Mar, 2013 [facility] [address] [id number] [address] [place] [address] 07 Mar, 2013 [facility] [address] [id number] [address] [place] [address], [place] [address] 06 Mar, 2014 [facility] [address] [id number] [address] [place] [id number] 26 Sep, 2013 [facility] [address] [id number] [address] [place] [address] 26 Sep, 2013 [facility] [address] [id number] [address] [place] [address], [place] [address] 23 Sep, 2013 [facility] [address] [id number] [address] [place] [address] 23 Sep, 2013 [facility] [address] [id number] [address] [place] [address], [place] [id number] 19 Sep, 2013 [facility] [address] [id number] [address] [place] [id number] 19 Sep, 2013 [facility] [address] [id number] [address] [place] [id number] 13 Sep, 2013 [facility] [address] [id number] [facility] [place] [address] 13 Feb, 2014 [facility] [address] [id number] [facility] [place] [address] 12 Feb, 2014 [facility] [address] [id number] [facility] [place] [address] Feb, [facility] [address] [id number] [address] [place] [address], [place] [address] Jan, [facility] [address] [id number] [address] [place] [address], [place] [address] Jan, [facility] [address] [id number] [address] [place] [address], [place] [address] Dec, [facility] [address] [id number] [address] [place] [address], [place] [address] Dec, [facility] [address] [id number] [address] [place] [address], [place] [address] Dec, [facility] [address] [id number] [address] [place] [address], [place] [id number] Dec, [facility] [address] [id number] [address] [place] [address], [place] [address] Dec, [facility] [address] [id number] [address] [place] [address], [place] [address] Dec, [facility] [address] [id number] [address] [place] [address], [place] [address] Nov, [facility] [address] [id number] [address] [place] [address], [place] [address] Nov, [facility] [address] [id number] [address] [place] [address], [place] [address] Nov, [facility] [address] [id number] [address] [place] [address], [place] [address] Nov, [facility] [address] [id number] [address] [place] [address], [place] [address] October, [facility] [address] [id number] [facility] [place] [address] October, [facility] [address] [id number] [facility] [place] [address] October, [facility] [address] [id number] [facility] [place] [address] October, [facility] [address] [id number] [address] [place] [address], [place] [address] October, [facility] [address] [id number] [address] [place] [address], [place] [address] October, [facility] [address] [id number] [address] [place] [address], [place] [address] October, [facility] [address] [id number] [address] [place] [address], [place] [address] October, [facility] [address] [id number] [address] [place] [address], [place] [address] October, [facility] [address] [id number] [address] [place] [address], [place] [id number] October, [facility] [address] [id number] [address] [place] [address], [place] [id number] October, [facility] [address] [id number] [address] [place] [address], [place] [id number] October, [facility] [address] [id number] [address] [place] [address], [place] [id number] October, [facility] [address] [id number] [address] [place] [address], [place] [id number] October, [facility] [address] [id number] [address] [place] [address], [place] [id number] October, [facility] [address] [id number] [address] [place] [address], [place] [id number] October, [facility] [address] [id number] [facility] [place] [id number] Sep, [facility] [address] [id number] [address] [place] [address], [place] [id number] Sep, [facility] [address] [id number] [facility] [place] [id number] Sep, [facility] [address] [id number] [address] [place] [address], [place] [id number] Sep, [facility] [address] [id number] [address] [place] [address], [place] [id number] Sep, [facility] [address] [id number] [address] [place] [address], [place] [id number] Sep, [facility] [address] [id number] [address] [place] [address], [place] [id number] Aug, [facility] [address] [id number] [address] [place] [address], [place] [id number] Aug, [facility] [address] [id number] [address] [place] [address], [place] [id number] Aug, [facility] [address] [id number] [address] [place] [address], [place] [id number] Aug, [facility] [address] [id number] [address] [place] [address], [place] [id number] Aug, [facility] [address] [id number] [address] [place] [address], [place] [id number] Aug, [facility] [address] [id number] [address] [place] [address], [place] [id number] Jul, [facility] [address] [id number] [address] [place] [address], [place] [id number] Jul, [facility] [address] [id number] [address] [place] [address], [place] [id number] Jul, [facility] [address] [id number] [address] [place] [address], [place] [id number] Jul, [facility] [address] [id number] [address] [place] [address], [place] [id number] Jun, [facility] [address] [id number] [address] [place] [address], [place] [id number] Jun, [facility] [address] [id number] [address] [place] [address], [place] [id number] May, [facility] [address] [id number] [address] [place] [address], [place] [id number] May, [facility] [address] [id number] [address] [place] [address], [place] [id number] May, [facility] [address] [id number] [address] [place] [address], [place] [id number] May, [facility] [address] [id number] [address] [place] [address], [place] [id number] May, [facility] [address] [id number] [address] [place] [id number] Apr, [facility] [address] [id number] [address] [place] [address], [place] [id number] Apr, [facility] [address] [id number] [address] [place] [id number] Apr, [facility] [address] [id number] [address] [place] [id number] Apr, [facility] [address] [id number] [address] [place] [id number] Apr, [facility] [address] [id number] [address] [place] [id number] Apr, [facility] [address] [id number] [address] [place] [id number] 15 Mar, 2013 [facility] [address] [id number] [address] [place] [id number] 15 Mar, 2013 [facility] [address] [id number] [address] [place] [id number] 14 Mar, 2013 [facility] [address] [id number] [address] [place] [address], [place] [id number] 14 Mar, 2013 [facility] [address] [id number] [address] [place] [address], [place] [id number] 11 Mar, 2013 [facility] [address] [id number] [address] [place] [address], [place] [id number] 11 Mar, 2013 [facility] [address] [id number] [address] [place] [address], [place] [id number] 23 Feb, 2013 [facility] [address] [id number] [address] [place] [address], [place] [id number] Feb, [facility] [address] [id number] [address] [place] [address], [place] [id number] Feb, [facility] [address] [id number] [address] [place] [address], [place] [address] Jan, [facility] [address] [id number] [address] [place] [address], [place] [address] Jan, [facility] [address] [id number] [address] [place] [address], [place] [id number] Jan, [facility] [address] [id number] [address] [place] [address], [place] [id number] Jan, [facility] [address] [id number] [address] [place] [address], [place] [id number] Jan, [facility] [address] [id number] [address] [place] [address], [place] [id number] Jan, [facility] [address] [id number] [address] [place] [address], [place] [id number] Dec, [facility] [address] [id number] [address] [place] [address], [place] [id number] Dec, [facility] [address] [id number] [address] [place] [address], [place] [id number] Dec, [facility] [address] [id number] [address] [place] [address], [place] [id number] Dec, [facility] [address] [id number] [address] [place] [address], [place] [id number] Dec, [facility] [address] [id number] [address] [place] [address], [place] [id number] Dec, [facility] [address] [id number] [address] [place] [address], [place] [id number] Nov, [facility] [address] [id number] [address] [place] [address], [place] [id number] Nov, [facility] [address] [id number] [address] [place] [address], [place] [id number] Nov, [facility] [address] [id number] [address] [place] [address], [place] [id number] Nov, [facility] [address] [id number] [address] [place] [address], [place] [id number] Nov, [facility] [address] [id number] [address] [place] [address], [place] [address] Nov, [facility] [address] [id number] [address] [place] [address], [place] [address] October, [facility] [address] [id number] [address] [place] [address], [place] [id number] October, [facility] [address] [id number] [address] [place] [address], [place] [id number] October, [facility] [address] [id number] [address] [place] [address], [place] [id number] October, [facility] [address] [id number] [address] [place] [address], [place] [id number] October, [facility] [address] [id number] [address] [place] [address], [place] [id number] Sep, [facility] [address] [id number] [address] [place] [address], [place] [id number] 23 Sep, 2012 [facility] [address] [id number] [address] [place] [address], [place] [id number] Sep, [facility] [address] [id number] [address] [place] [address], [place] [id number] 18 Sep, 2012 [facility] [address] [id number] [address] [place] [address], [place] [id number] Sep, [facility] [address] [id number] [address] [place] [address], [place] [id number] Aug, [facility] [address] [id number] [address] [place] [address], [place] [address] Aug, [facility] [address] [id number] [address] [place] [address], [place] [id number] Aug, [facility] [address] [id number] [address] [place] [address], [place] [id number] Jul, [facility] [address] [id number] [address] [place] [address], [place] [id number] Jul, [facility] [address] [id number] [address] [place] [address], [place] [id number] Jul, [facility] [address] [id number] [address] [place] [address], [place] [id number] 08 Jul, 2012 [facility] [address] [id number] [address] [place] [address], [place] [id number] 06 Jul, 2012 [facility] [address] [id number] [address] [place] [address], [place] [id number] 05 Jul, 2012 [facility] [address] [id number] [address] [place] [address], [place] [id number] 15 Jun, 2012 [facility] [address] [id number] [address] [place] [address], [place] [id number] Apr, [facility] [address] [id number] [address] [place] [address], [place] [id number] Apr, [facility] [address] [id number] [address] [place] [address], [place] [id number] Apr, [facility] [address] [id number] [address] [place] [address], [place] [id number] Apr, [facility] [address] [id number] [address] [place] [address], [place] [id number] Mar, [facility] [address] [id number] [address] [place] [address], [place] [id number] Mar, [facility] [address] [id number] [address] [place] [address], [place] [id number] Mar, [facility] [address] [id number] [address] [place] [address], [place] [id number] Mar, [facility] [address] [id number] [address] [place] [address], [place] [id number] Mar, [facility] [address] [id number] [address] [place] [address], [place] [id number] Feb, [facility] [address] [id number] [address] [place] [address], [place] [id number] Jan, [facility] [address] [id number] [address] [place] [address], [place] [id number] Jan, [facility] [address] [id number] [address] [place] [address], [place] [id number] Jan, [facility] [address] [id number] [address] [place] [address], [place] [id number] Dec, [facility] [address] [id number] [address] [place] [address], [place] [id number] Nov, [facility] [address] [id number] [address] [place] [address], [place] [id number] Nov, [facility] [address] [id number] [address] [place] [address], [place] [id number] Nov, [facility] [address] [id number] [address] [place] [address], [place] [id number] Nov, [facility] [address] [facility] [id number] [address] [place] [id number] Nov, [facility] [address] [facility] [id number] [address] [place] [id number] October, [facility] [address] [facility] [id number] [address] [place] [id number] October, [facility] [address] [facility] [id number] [address] [place] [id number] October, [facility] [address] [facility] [id number] [address] [place] [id number] October, [facility] [address] [facility] [id number] [address] [place] [id number] October, IMMUNIZATIONS No Known Immunizations SOCIAL HISTORY [...]
--- OUTSIDE RECORDS SUMMARY | 2020-01-25 08:12 | XMS REPORT ---
Author Author Velma CORDERO Organization [facility] Address [address] [place] [address] Care Team Providers Care In Home Tutor Name Role Phone STEPHAN CORDERO Unavailable PROBLEMS Type Condition ICD9-CM Code [id number] Code Onset Dates Condition S tatus SNOMED Code Problem Corns L84 Active 623163786 Problem Primary insomnia F51.01 Active 397 2004 Problem Hyperparathyroidism E21.3 Active 54969056 Problem Hypercholesteremia E78.0 Active 1 0330959 Problem Mood disorder F39 Active 913205 05 Problem Arthritis M19.90 Active 6872444 Problem 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 Active 18309208 Problem Myalgia M79.1 Active 14252322 Problem Chronic kidney disease, stage 4 (severe) N18.4 Active 276506785 Problem Primary osteoarthritis of left knee M17.12 Active 240979824645207 Problem Irritable bowel syndrome with both constipation and diarrh ea K58.2 Active 44870262 Problem Other chronic pain G89.29 Active 8 7948927 Problem BPV (benign positional vertigo), bilateral H81.13 Active 565857087 Problem Hyperparathyroidism, unspecified E21.3 Active 60480905 Problem Parathyroid abnormality E21.5 Active 24443321 Problem Body mass index (BMI) of 40.0-44.9 in adult Z68.41 Active 635180725 Problem Unspecified kidney failure N19 Act chip 47249584 Problem 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 Active 893464048 Problem Unspecified inflammatory spo ndylopathy, sacral and sacrococcygeal region M46.98 Active 59272615 ALLERGIES No Information ENCOUNTERS Encounter Location Date Diagnosis [facility] [address] [facility] [id number] [address] [place] [phone] Dec, Hyperparathyroidism, unspeci fied E21.3 [facility] [address] [facility] [id number] [address] [place] [phone] Dec, [place] [address] [place] [id number] [address] [place] [phone] Nov, Hyperparathyroidism, unspeci fied E21.3 [place] [address] [place] [id number] [address] [place] [phone] Nov, Hyperparathyroidism, unspeci fied E21.3 [place] [address] [address] Nov, Chronic kidney disease, stag e 4 (severe) N18.4 ; Hyperparathyroidism, unspecified E21.3 and Left otitis media with effusion H65.92 [place] [address] [address] Nov, Hyperparathyroidism, unspeci fied E21.3 [place] [address] [address] October, [place] [address] [address] October, Hyperparathyroidism, unspeci fied E21.3 [place] [address] [place] [id number] [address] [place] [phone] October, Hyperparathyroidism, unspeci fied E21.3 [place] [address] [place] [id number] [address] [place] [phone] Sep, Hyperparathyroidism, unspeci fied E21.3 [place] [id number] [place] [phone] Aug, Hyperparathyroidism, unspeci fied E21.3 [place] [address] [place] [id number] [address] [place] [address] Aug, Pain in left knee M25.562 ; Other chronic pain G89.29 ; Unspecified inflammatory spondylopathy, sacral and sacrococcygeal region M46.98 ; Chronic kidney disease, stage 4 (severe) N18.4 and Hyperparathyroidism, unspecified E21.3 [place] [address] [place] [id number] [address] [place] [id number] Jul, [facility] [address] [facility] [id number] [address] [place] [phone] Jul, Arthritis M19.90 [facility] [address] [facility] [id number] [address] [place] [phone] Jun, Knee pain, left M25.562 [facility] [address] [facility] [id number] [address] [place] [phone] May, Arthritis M19.90 [facility] [address] [facility] [id number] [address] [place] [phone] Apr, Well woman exam without gyne cological exam Z00.00 and Screening for breast cancer Z12.39 [place] [address] [facility] [id number] [address] [place] [id number] Mar, Arthritis M19.90 [facility] [address] [facility] [id number] [address] [place] [phone] Mar, Arthritis M19.90 [facility] [address] [facility] [id number] [address] [place] [phone] Mar, [facility] [address] [facility] [id number] [address] [place] [phone] Mar, Arthritis M19.90 and Encount er for immunization Z23 [facility] [address] [facility] [id number] [address] [place] [phone] Feb, Arthritis M19.90 [facility] [address] [facility] [id number] [address] [place] [phone] Feb, [facility] [address] [facility] [id number] [address] [place] [phone] Feb, Other specified disorders of bone density and structure, unspecified site M85.80 [facility] [address] [facility] [id number] [address] [place] [phone] Jan, Arthritis M19.90 [facility] [address] [id number] [address] [place] [phone] Dec, Arthritis M19.90 [facility] [address] [id number] [address] [place] [phone] Nov, Inflammatory spondylopathy o f sacral region M46.98 [facility] [address] [id number] [address] [place] [phone] Nov, [facility] [address] [facility] [id number] [address] [place] [id number] 14 Nov, 2018 Labyrinthitis of left ear H8 3.02 [facility] [address] [facility] [id number] [address] [place] [phone] 03 Nov, 2018 Arthritis M19.90 [facility] [address] [facility] [id number] [address] [place] [phone] 15 Sep, 2018 Arthritis M19.90 [facility] [address] [facility] [id number] [address] [place] [phone] Sep, Renal insufficiency N28.9 an d Unspecified kidney failure N19 [facility] [address] [facility] [id number] [address] [place] [phone] Sep, Renal insufficiency N28.9 an d Unspecified kidney failure N19 [facility] [address] [facility] [id number] [address] [place] [phone] Sep, Arthritis M19.90 [facility] [address] [facility] [id number] [address] [place] [phone] Aug, Exercise counseling Z71.82 [facility] [address] [facility] [id number] [address] [place] [phone] Aug, [facility] [address] [facility] [id number] [address] [place] [phone] Jul, Labyrinthitis of left ear H8 3.02 [facility] [address] [facility] [id number] [address] [place] [phone] 22 Jul, 2018 Labyrinthitis of left ear H8 3.02 [facility] [address] [facility] [id number] [address] [place] [id number] 19 Jul, 2018 Exercise counseling Z71.82 [facility] [address] [facility] [id number] [address] [place] [phone] 18 Jul, 2018 [place] [address] [facility] [id number] [address] [place] [phone] 14 Jul, 2018 Arthritis M19.90 [place] [address] [facility] [id number] [address] [place] [id number] 13 Jul, 2018 Encounter for Medicare annua l wellness exam Z00.00 ; Chronic kidney disease, stage 4 (severe) N18.4 ; Body mass index (BMI) of 40.0-44.9 in adult Z68.41 ; Hyperparathyroidism E21.3 and BMI 40.0-44.9, adult Z68.41 [place] [address] [place] [id number] [address] [place] [id number] 13 Jul, 2018 Encounter for Medicare annua l wellness exam Z00.00 ; Chronic kidney disease, stage 4 (severe) N18.4 ; Hyperparathyroidism E21.3 ; Body mass index (BMI) of 40.0-44.9 in adult Z68.41 and Encounter for immunization Z23 [place] [id number] [place] [id number] [address] [place] [phone] 11 Jul, 2018 Tail bone pain M53.3 [place] [address] [facility] [id number] [address] [place] [phone] Jun, Exercise counseling Z71.82 [place] [address] [facility] [id number] [address] [place] [phone] Jun, Labyrinthitis of left ear H8 3.02 [place] [address] [facility] [id number] [address] [place] [phone] Jun, Tail bone pain M53.3 ; Irrit able bowel syndrome with both constipation and diarrhea K58.2 and Dysfunction of left eustachian tube H69.82 [facility] [address] [id number] [address] [place] [phone] Jun, Exercise counseling Z71.82 [facility] [address] [id number] [address] [place] [phone] Jun, Arthritis M19.90 [facility] [address] [id number] [address] [place] [phone] Jun, Irritable bowel syndrome wit h both constipation and diarrhea K58.2 ; Tail bone pain M53.3 and Dysfunction of left eustachian tube H69.82 [facility] [address] [id number] [address] [place] [phone] Jun, Exercise counseling Z71.82 [place] [address] [id number] [address] [place] [phone] Jun, Exercise counseling Z71.82 [facility] [address] [id number] [address] [place] [phone] Jun, Labyrinthitis of left ear H8 3.02 [facility] [address] [id number] [address] [place] [phone] May, Exercise counseling Z71.82 [facility] [address] [id number] [address] [place] [phone] May, Arthritis M19.90 [facility] [address] [id number] [address] [place] [phone] May, Exercise counseling Z71.82 [facility] [address] [id number] [address] [place] [phone] May, Exercise counseling Z71.82 [facility] [address] [id number] [address] [place] [phone] May, Labyrinthitis of left ear H8 3.02 [facility] [address] [id number] [address] [place] [phone] May, Exercise counseling Z71.82 [facility] [address] [facility] [id number] [address] [place] [phone] Apr, Arthritis M19.90 [facility] [address] [facility] [id number] [address] [place] [phone] Apr, Exercise counseling Z71.82 [place] [address] [facility] [id number] [address] [place] [phone] Apr, Exercise counseling Z71.82 [place] [address] [facility] [id number] [address] [place] [phone] Apr, Primary osteoarthritis of le ft knee M17.12 [place] [address] [place] [id number] [address] [place] [phone] Apr, Labyrinthitis of left ear H8 3.02 [place] [address] [place] [id number] [address] [place] [id number] Mar, Arthritis M19.90 [place] [address] [facility] [id number] [address] [place] [phone] Mar, [place] [address] [phone] Mar, Chronic kidney disease, stag e 4 (severe) N18.4 [place] [address] [address] Mar, Chronic kidney disease, stag e 4 (severe) N18.4 [place] [address] [facility] [id number] [address] [place] [phone] Mar, Labyrinthitis of left ear H8 3.02 [place] [address] [place] [id number] [address] [place] [phone] 05 Mar, 2018 Chronic kidney disease, stag e 4 (severe) N18.4 ; Knee pain, left anterior M25.562 ; Deficiency of other specified B group vitamins E53.8 and Encounter for immunization Z23 [place] [address] [place] [id number] [address] [place] [phone] Mar, Arthritis M19.90 [facility] [address] [place] [id number] [address] [place] [phone] Feb, Labyrinthitis of left ear H8 3.02 [facility] [address] [facility] [id number] [address] [place] [phone] Feb, Arthritis M19.90 [facility] [address] [facility] [id number] [address] [place] [phone] Jan, Labyrinthitis of left ear H8 3.02 [facility] [address] [place] [id number] [address] [place] [phone] Jan, Arthritis M19.90 [facility] [address] [place] [id number] [address] [place] [phone] Dec, Labyrinthitis of left ear H8 3.02 [facility] [address] [place] [id number] [address] [place] [phone] Nov, Arthritis M19.90 [facility] [address] [place] [id number] [address] [place] [phone] Nov, Labyrinthitis of left ear H8 3.02 [facility] [address] [place] [id number] [address] [place] [phone] Nov, BMI 40.0-44.9, adult Z68.41 ; Chronic kidney disease, stage 4 (severe) N18.4 and Acute right-sided thoracic back pain M54.6 [facility] [address] [place] [id number] [address] [place] [phone] October, Labyrinthitis of left ear H8 3.02 and Arthritis M19.90 [facility] [address] [place] [id number] [address] [place] [phone] Sep, BPV (benign positional verti go), bilateral H81.13 ; Dysfunction of left eustachian tube H69.82 and BMI 40.0-44.9, adult Z68.41 [facility] [address] [facility] [id number] [address] [place] [phone] Sep, Labyrinthitis of left ear H8 3.02 and Arthritis M19.90 [facility] [address] [id number] [address] [place] [phone] Sep, [facility] [address] [facility] [id number] [address] [place] [phone] Sep, [facility] [address] [id number] [address] [place] [phone] Sep, Chronic kidney disease, stag e 4 (severe) N18.4 [facility] [address] [facility] [id number] [address] [place] [phone] Sep, Chronic kidney disease, stag e 4 (severe) N18.4 [facility] [address] [facility] [id number] [address] [place] [phone] Aug, Labyrinthitis of left ear H8 3.02 and Arthritis M19.90 [facility] [address] [id number] [address] [place] [phone] Aug, [facility] [address] [facility] [id number] [address] [place] [phone] Jul, [facility] [address] [id number] [address] [place] [phone] Jul, Arthritis M19.90 and Labyrin thitis of left ear H83.02 [facility] [address] [id number] [address] [place] [phone] Jul, [facility] [address] [id number] [address] [place] [phone] Jun, [facility] [address] [id number] [address] [place] [phone] Jun, Arthritis M19.90 and Labyrin thitis of left ear H83.02 [place] [address] [place] [id number] [address] [place] [phone] Jun, Pre-op evaluation Z01.818 ; BMI 40.0-44.9, adult Z68.41 and Encounter for immunization Z23 [place] [address] [address] May, Arthritis M19.90 and Labyrin thitis of left ear H83.02 [place] [address] [address] Apr, Labyrinthitis of left ear H8 3.02 [place] [address] [address] Apr, Arthritis M19.90 and Labyrin thitis of left ear H83.02 [place] [address] [address] Mar, Arthritis M19.90 and Labyrin thitis of left ear H83.02 [place] [address] [address] Mar, Chronic kidney disease, stag e 4 (severe) N18.4 [place] [address] [address] Feb, Arthritis M19.90 and Labyrin thitis of left ear H83.02 [place] [address] [address] Jan, Labyrinthitis of left ear H8 3.02 and Deficiency of other specified B group vitamins E53.8 [place] [address] [address] Dec, Arthritis M19.90 [place] [address] [place] [id number] [place] [phone] Dec, BPV (benign positional verti go), bilateral H81.13 [place] [address] [place] [address] Dec, [facility] [address] [facility] [id number] [address] [place] [phone] Dec, [facility] [address] [facility] [id number] [address] [place] [phone] Dec, [facility] [address] [facility] [id number] [address] [place] [phone] Nov, Arthritis M19.90 and Deficie ncy of other specified B group vitamins E53.8 [facility] [address] [facility] [id number] [address] [place] [phone] Nov, Arthritis M19.90 [facility] [address] [facility] [id number] [address] [place] [id number] Nov, Hyperparathyroidism E21.3 [facility] [address] [facility] [id number] [address] [place] [phone] October, [facility] [address] [facility] [id number] [address] [place] [phone] October, Hyperparathyroidism E21.3 [facility] [address] [facility] [id number] [address] [place] [phone] October, [facility] [address] [facility] [id number] [address] [place] [phone] October, Renal insufficiency N28.9 an d Hyperparathyroidism E21.3 [facility] [address] [facility] [id number] [address] [place] [phone] October, [facility] [address] [facility] [id number] [address] [place] [phone] October, Renal insufficiency N28.9 an d Hyperparathyroidism E21.3 [facility] [address] [facility] [id number] [address] [place] [id number] October, Arthritis M19.90 [facility] [address] [facility] [id number] [address] [place] [phone] Sep, [facility] [address] [facility] [id number] [address] [place] [phone] Sep, Lumbar neuritis M54.16 ; Tho racic abscess J86.9 and Deficiency of other specified B group vitamins E53.8 [facility] [address] [facility] [id number] [address] [place] [phone] Sep, [facility] [address] [place] [id number] [address] [place] [phone] Aug, Arthritis M19.90 [facility] [address] [place] [id number] [address] [place] [phone] Aug, Hyperparathyroidism E21.3 [facility] [address] [address] Aug, Hyperparathyroidism E21.3 [facility] [address] [address] Aug, Arthritis M19.90 [facility] [address] [place] [id number] [address] [place] [id number] Jul, Mass of throat R22.1 [facility] [address] [id number] Jul, [facility] [address] [place] [id number] [address] [place] [id number] Jul, Arthritis M19.90 [facility] [address] [place] [id number] [address] [place] [id number] Jun, Arthritis M19.90 [facility] [address] [place] [id number] [address] [place] [phone] Jun, [facility] [address] [place] [id number] [address] [place] [address] Jun, Renal insufficiency N28.9 an d Parathyroid abnormality E21.5 [facility] [address] [facility] [id number] [address] [place] [address] Jun, Medicare welcome exam Z00.00 ; Encounter for immunization Z23 ; Arthritis M19.90 ; Medicare annual wellness visit, initial Z00.00 ; Medicare annual wellness visit, subsequent Z00.00 and Deficiency of other specified B group vitamins E53.8 [facility] [address] [facility] [id number] [address] [place] [phone] 29 May, 2016 Renal insufficiency N28.9 an d Parathyroid abnormality E21.5 [facility] [address] [facility] [id number] [address] [place] [id number] May, Renal insufficiency N28.9 [facility] [address] [facility] [id number] [address] [place] [phone] May, Renal insufficiency N28.9 [facility] [address] [facility] [id number] [address] [place] [id number] May, [facility] [address] [facility] [id number] [address] [place] [phone] Apr, [facility] [address] [facility] [id number] [address] [place] [phone] Apr, [facility] [address] [facility] [id number] [address] [place] [phone] 14 Apr, 2016 Mass of throat R22.1 [facility] [address] [facility] [id number] [address] [place] [phone] Apr, [facility] [address] [facility] [id number] [address] [place] [phone] Apr, Mass of throat R22.1 [facility] [address] [facility] [id number] [address] [place] [phone] 04 Apr, 2016 Mass of throat R22.1 [facility] [address] [facility] [id number] [address] [place] [phone] Mar, [facility] [address] [facility] [id number] [address] [place] [phone] Mar, [facility] [address] [facility] [id number] [address] [place] [phone] Mar, [facility] [address] [id number] [address] [place] [phone] Mar, Parathyroid abnormality E21. 5 and Encounter for immunization Z23 [facility] [address] [id number] [address] [place] [phone] 17 Mar, 2016 [facility] [address] [id number] [address] [place] [phone] Mar, [facility] [address] [id number] [address] [place] [phone] 21 Feb, 2016 Renal insufficiency N28.9 an d Hyperparathyroidism E21.3 [facility] [address] [id number] [address] [place] [phone] 19 Feb, 2016 [facility] [address] [id number] [address] [place] [id number] 15 Feb, 2016 Renal insufficiency N28.9 an d Hyperparathyroidism E21.3 [facility] [address] [id number] [address] [place] [id number] 14 Feb, 2016 [facility] [address] [id number] [address] [place] [phone] 12 Feb, 2016 [facility] [address] [id number] [address] [place] [id number] 09 Feb, 2016 [facility] [address] [id number] [address] [place] [phone] Jan, [facility] [address] [id number] [address] [place] [phone] Jan, Arthritis M19.90 ; Lumbago w ith sciatica, right side M54.41 and Other chronic pain G89.29 [facility] [address] [id number] [address] [place] [id number] Jan, [facility] [address] [id number] [address] [place] [address] Dec, Arthritis M19.90 ; Lumbago w ith sciatica, right side M54.41 and Other chronic pain G89.29 [id number] [id number] [address] [place] [id number] 16 Nov, 2015 Deficiency of other specifie d B group vitamins E53.8 ; Primary insomnia F51.01 ; Mood disorder F39 and Lumbago with sciatica, right side M54.41 [place] [address] [place] [id number] [address] [place] [id number] 13 Nov, 2015 Hyperparathyroidism E21.3 [place] [address] [place] [id number] [address] [place] [phone] Nov, Unspecified kidney failure N 19 and Hyperparathyroidism E21.3 [place] [address] [place] [id number] [address] [place] [phone] October, Hyperparathyroidism E21.3 [place] [address] [place] [id number] [address] [place] [phone] October, [place] [address] [place] [id number] [address] [place] [phone] October, Hyperparathyroidism E21.3 [place] [address] [place] [id number] [address] [place] [phone] October, Hyperparathyroidism E21.3 [place] [address] [place] [id number] [address] [place] [phone] Sep, Hyperparathyroidism E21.3 ; Hypercholesterolemia E78.0 and Arthritis M19.90 [facility] [address] [facility] [id number] [address] [place] [phone] Aug, [place] [address] [facility] [id number] [address] [place] [id number] 11 Aug, 2015 Deficiency of other specifie d B group vitamins E53.8 [place] [address] [facility] [id number] [address] [place] [phone] 07 Aug, 2015 [place] [address] [place] [id number] [address] [place] [phone] Jul, Urinary frequency R35.0 [facility] [address] [id number] [address] [place] [phone] Jul, Urinary frequency R35.0 [facility] [address] [id number] [address] [place] [phone] Jul, [facility] [address] [id number] [address] [place] [id number] Jul, [facility] [address] [id number] [address] [place] [id number] Jun, Pain in left knee M25.562 [facility] [address] [id number] [address] [place] [phone] Jun, [facility] [address] [facility] [id number] [address] [place] [phone] May, Swelling of left knee joint M25.462 [facility] [address] [id number] [address] [place] [phone] May, [facility] [address] [facility] [id number] [address] [place] [phone] May, [facility] [address] [facility] [id number] [address] [place] [phone] May, [facility] [address] [facility] [id number] [address] [place] [phone] Apr, Renal insufficiency N28.9 an d Chronic kidney disease, stage 4 (severe) N18.4 [facility] [address] [id number] [address] [place] [id number] Apr, Unspecified kidney failure N 19 [facility] [address] [facility] [id number] [address] [place] [id number] Apr, Unspecified kidney failure N 19 [facility] [address] [facility] [id number] [address] [place] [phone] Apr, [facility] [address] [id number] [address] [place] [id number] Apr, Hyperparathyroidism, unspeci fied 252.00 [facility] [address] [id number] [address] [place] [id number] Apr, [facility] [address] [facility] [id number] [address] [place] [phone] Mar, [facility] [address] [id number] [address] [place] [phone] Mar, [facility] [address] [facility] [id number] [address] [place] [phone] Mar, Hyperparathyroidism, unspeci fied 252.00 [facility] [address] [facility] [id number] [address] [place] [phone] Feb, [facility] [address] [facility] [id number] [place] [address] Feb, Otalgia 388.70 [facility] [address] [facility] [id number] [address] [place] [phone] Feb, [facility] [address] [facility] [id number] [place] [address] Feb, [facility] [address] [facility] [id number] [address] [place] [phone] Jan, [facility] [address] [facility] [id number] [address] [place] [id number] Jan, Hyperparathyroidism, unspeci fied 252.00 [facility] [address] [facility] [id number] [address] [place] [phone] Jan, [facility] [address] [facility] [id number] [place] [address] Jan, Other B-complex deficiencies 266.2 and Hyperparathyroidism, unspecified 252.00 [facility] [address] [facility] [id number] [address] [place] [phone] Jan, [facility] [address] [id number] [address] [place] [phone] Jan, [facility] [address] [id number] [address] [place] [phone] Jan, [facility] [address] [id number] [address] [place] [phone] Dec, [facility] [address] [id number] [address] [place] [phone] Dec, [facility] [address] [id number] [address] [place] [phone] Dec, [facility] [address] [id number] [address] [place] [phone] Nov, Routine check-up V70.0 and P re-op exam V72.84 [facility] [address] [id number] [address] [place] [id number] Nov, [facility] [address] [id number] [address] [place] [phone] Nov, [facility] [address] [id number] [address] [place] [phone] October, [facility] [address] [id number] [address] [place] [id number] October, Other B-complex deficiencies 266.2 [facility] [address] [id number] [address] [place] [phone] October, [facility] [address] [id number] [address] [place] [phone] Sep, [facility] [address] [id number] [address] [place] [phone] Sep, [facility] [address] [id number] [address] [place] [phone] Aug, [facility] [address] [id number] [address] [place] [phone] Aug, [facility] [address] [id number] [address] [place] [address], [place] [address] 17 Aug, 2014 [facility] [address] [id number] [address] [place] [address], [place] [address] Aug, 2014 [facility] [address] [id number] [address] [place] [address], [place] [address] Aug, 2014 [facility] [address] [id number] [address] [place] [address], [place] [address] Aug, 2014 [facility] [address] [id number] [address] [place] [address], [place] [address] Jul, 2014 [facility] [address] [id number] [address] [place] [address], [place] [address] Jul, 2014 [facility] [address] [id number] [address] [place] [address], [place] [address] Jul, 2014 [facility] [address] [id number] [address] [place] [address], [place] [address] Jul, 2014 [facility] [address] [id number] [address] [place] [address], [place] [address] Jul, 2014 [facility] [address] [id number] [address] [place] [address], [place] [address] Jul, 2014 [facility] [address] [id number] [address] [place] [address], [place] [address] Jul, 2014 [facility] [address] [id number] [address] [place] [address], [place] [address] Jul, 2014 [facility] [address] [id number] [address] [place] [address], [place] [address] Jul, 2014 [facility] [address] [id number] [address] [place] [address], [place] [address] Jul, 2014 [facility] [address] [id number] [address] [place] [address], [place] [address] Jul, 2014 [facility] [address] [id number] [address] [place] [address], [place] [address] 06 Jul, 2014 [facility] [address] [id number] [address] [place] [address], [place] [address] Jul, [facility] [address] [id number] [address] [place] [address], [place] [address] Jul, [facility] [address] [id number] [address] [place] [address], [place] [address] Jun, [facility] [address] [id number] [address] [place] [address], [place] [address] Jun, [facility] [address] [id number] [address] [place] [address], [place] [address] Jun, [facility] [address] [id number] [address] [place] [address], [place] [address] Jun, [facility] [address] [id number] [address] [place] [address], [place] [address] Jun, [facility] [address] [id number] [address] [place] [address], [place] [address] Jun, [facility] [address] [id number] [address] [place] [address], [place] [address] Jun, [facility] [address] [id number] [address] [place] [address], [place] [address] Jun, [facility] [address] [id number] [address] [place] [address], [place] [address] Jun, [facility] [address] [id number] [address] [place] [address], [place] [address] Jun, [facility] [address] [id number] [address] [place] [address], [place] [address] Jun, [facility] [address] [id number] [address] [place] [address], [place] [address] Jun, [facility] [address] [id number] [address] [place] [address], [place] [address] Jun, [facility] [address] [id number] [address] [place] [address], [place] [address] Jun, [facility] [address] [id number] [address] [place] [address], [place] [address] May, [facility] [address] [id number] [address] [place] [address], [place] [address] May, [facility] [address] [id number] [address] [place] [address], [place] [address] May, [facility] [address] [id number] [address] [place] [address], [place] [address] May, [facility] [address] [id number] [address] [place] [address], [place] [address] Apr, [facility] [address] [id number] [address] [place] [address], [place] [address] Apr, [facility] [address] [id number] [address] [place] [address], [place] [address] Apr, [facility] [address] [id number] [address] [place] [address], [place] [address] Apr, [facility] [address] [id number] [address] [place] [address], [place] [address] Apr, [facility] [address] [id number] [address] [place] [address], [place] [address] Apr, [facility] [address] [id number] [address] [place] [address], [place] [address] Mar, [facility] [address] [id number] [address] [place] [address], [place] [address] Mar, [facility] [address] [id number] [address] [place] [address], [place] [address] Mar, [facility] [address] [id number] [address] [place] [address], [place] [address] Mar, [facility] [address] [id number] [address] [place] [id number] 15 Mar, 2014 [facility] [address] [id number] [address] [place] [address], [place] [address] 15 Mar, 2014 [facility] [address] [id number] [address] [place] [id number] 13 Mar, 2014 [facility] [address] [id number] [address] [place] [address], [place] [address] 13 Mar, 2013 [facility] [address] [id number] [address] [place] [phone] 07 Mar, 2013 [facility] [address] [id number] [address] [place] [address], [place] [address] 07 Mar, 2013 [facility] [address] [id number] [address] [place] [address], [place] [address] 07 Mar, 2013 [facility] [address] [id number] [address] [place] [id number] 07 Mar, 2013 [facility] [address] [id number] [address] [place] [address], [place] [address] 06 Mar, 2014 [facility] [address] [id number] [address] [place] [id number] 26 Sep, 2013 [facility] [address] [id number] [address] [place] [id number] 26 Sep, 2013 [facility] [address] [id number] [address] [place] [address], [place] [address] 23 Sep, 2013 [facility] [address] [id number] [address] [place] [id number] 23 Sep, 2013 [facility] [address] [id number] [address] [place] [address], [place] [address] 19 Sep, 2013 [facility] [address] [id number] [address] [place] [id number] 19 Sep, 2013 [facility] [address] [id number] [address] [place] [id number] 13 Sep, 2013 [facility] [address] [id number] [facility] [place] [address] 13 Feb, 2014 [facility] [address] [id number] [facility] [place] [address] 12 Feb, 2014 [facility] [address] [id number] [facility] [place] [address] Feb, [facility] [address] [id number] [address] [place] [address], [place] [address] Jan, [facility] [address] [id number] [address] [place] [address], [place] [address] Jan, [facility] [address] [id number] [address] [place] [address], [place] [address] Dec, [facility] [address] [id number] [address] [place] [address], [place] [address] Dec, [facility] [address] [id number] [address] [place] [address], [place] [address] Dec, [facility] [address] [id number] [address] [place] [address], [place] [address] Dec, [facility] [address] [id number] [address] [place] [address], [place] [address] Dec, [facility] [address] [id number] [address] [place] [address], [place] [address] Dec, [facility] [address] [id number] [address] [place] [address], [place] [address] Nov, [facility] [address] [id number] [address] [place] [address], [place] [address] Nov, [facility] [address] [id number] [address] [place] [address], [place] [address] Nov, [facility] [address] [id number] [address] [place] [address], [place] [address] Nov, [facility] [address] [id number] [address] [place] [address], [place] [address] October, [facility] [address] [id number] [facility] [place] [address] October, [facility] [address] [id number] [address] [place] [address] October, [facility] [address] [id number] [address] [place] [address] October, [facility] [address] [id number] [address] [place] [address], [place] [address] October, [facility] [address] [id number] [address] [place] [address], [place] [address] October, [facility] [address] [id number] [address] [place] [address], [place] [address] October, [facility] [address] [id number] [address] [place] [address], [place] [address] October, [facility] [address] [id number] [address] [place] [address], [place] [address] October, [facility] [address] [id number] [address] [place] [address], [place] [address] October, [facility] [address] [id number] [address] [place] [address], [place] [address] October, [facility] [address] [id number] [address] [place] [address], [place] [address] October, [facility] [address] [id number] [address] [place] [address], [place] [address] October, [facility] [address] [id number] [address] [place] [address], [place] [address] October, [facility] [address] [id number] [address] [place] [address], [place] [address] October, [facility] [address] [id number] [address] [place] [address], [place] [address] October, [facility] [address] [id number] [address] [place] [address] Sep, [facility] [address] [id number] [address] [place] [address], [place] [address] Sep, [facility] [address] [id number] [address] [place] [address] Sep, [facility] [address] [id number] [address] [place] [address], [place] [address] Sep, [facility] [address] [id number] [address] [place] [address], [place] [address] Sep, [facility] [address] [id number] [address] [place] [address], [place] [address] Sep, [facility] [address] [id number] [address] [place] [address], [place] [address] Aug, [facility] [address] [id number] [address] [place] [address], [place] [address] Aug, [facility] [address] [id number] [address] [place] [address], [place] [address] Aug, [facility] [address] [id number] [address] [place] [address], [place] [address] Aug, [facility] [address] [id number] [address] [place] [address], [place] [address] Aug, [facility] [address] [id number] [address] [place] [address], [place] [address] Aug, [facility] [address] [id number] [address] [place] [address], [place] [address] Jul, [facility] [address] [id number] [address] [place] [address], [place] [address] Jul, [facility] [address] [id number] [address] [place] [address], [place] [address] Jul, [facility] [address] [id number] [address] [place] [address], [place] [address] Jul, [facility] [address] [id number] [address] [place] [address], [place] [address] Jun, [facility] [address] [id number] [address] [place] [address], [place] [address] Jun, [facility] [address] [id number] [address] [place] [address], [place] [address] May, [facility] [address] [id number] [address] [place] [address], [place] [address] May, [facility] [address] [id number] [address] [place] [address], [place] [address] May, [facility] [address] [id number] [address] [place] [address], [place] [address] May, [facility] [address] [id number] [address] [place] [address], [place] [address] May, [facility] [address] [id number] [address] [place] [id number] Apr, [facility] [address] [id number] [address] [place] [address], [place] [address] Apr, [facility] [address] [id number] [address] [place] [id number] Apr, [facility] [address] [id number] [address] [place] [id number] Apr, [facility] [address] [id number] [address] [place] [id number] Apr, [facility] [address] [id number] [address] [place] [id number] Apr, [facility] [address] [id number] [address] [place] [id number] 15 Mar, 2013 [facility] [address] [id number] [address] [place] [id number] 15 Mar, 2013 [facility] [address] [id number] [address] [place] [id number] 14 Mar, 2013 [facility] [address] [id number] [address] [place] [address], [place] [address] 14 Mar, 2013 [facility] [address] [id number] [address] [place] [address], [place] [address] 11 Mar, 2013 [facility] [address] [id number] [address] [place] [address], [place] [address] 11 Mar, 2013 [facility] [address] [id number] [address] [place] [address], [place] [address] 23 Feb, 2013 [facility] [address] [id number] [address] [place] [address], [place] [address] Feb, [facility] [address] [id number] [address] [place] [address], [place] [address] Feb, [facility] [address] [id number] [address] [place] [address], [place] [address] Jan, [facility] [address] [id number] [address] [place] [address], [place] [address] Jan, [facility] [address] [id number] [address] [place] [address], [place] [address] Jan, [facility] [address] [id number] [address] [place] [address], [place] [address] Jan, [facility] [address] [id number] [address] [place] [address], [place] [address] Jan, [facility] [address] [id number] [address] [place] [address], [place] [address] Jan, [facility] [address] [id number] [address] [place] [address], [place] [address] Dec, [facility] [address] [id number] [address] [place] [address], [place] [address] Dec, [facility] [address] [id number] [address] [place] [address], [place] [address] Dec, [facility] [address] [id number] [address] [place] [address], [place] [address] Dec, [facility] [address] [id number] [address] [place] [address], [place] [address] Dec, [facility] [address] [id number] [address] [place] [address], [place] [address] Dec, [facility] [address] [id number] [address] [place] [address], [place] [address] Nov, [facility] [address] [id number] [address] [place] [address], [place] [address] Nov, [facility] [address] [id number] [address] [place] [address], [place] [address] Nov, [facility] [address] [id number] [address] [place] [address], [place] [address] Nov, [facility] [address] [id number] [address] [place] [address], [place] [address] Nov, [facility] [address] [id number] [address] [place] [address], [place] [address] Nov, [facility] [address] [id number] [address] [place] [address], [place] [address] October, [facility] [address] [id number] [address] [place] [address], [place] [address] October, [facility] [address] [id number] [address] [place] [address], [place] [address] October, [facility] [address] [id number] [address] [place] [address], [place] [address] October, [facility] [address] [id number] [address] [place] [address], [place] [address] October, [facility] [address] [id number] [address] [place] [address], [place] [address] Sep, [facility] [address] [id number] [address] [place] [address], [place] [address] 23 Sep, 2012 [facility] [address] [id number] [address] [place] [address], [place] [address] Sep, [facility] [address] [id number] [address] [place] [address], [place] [address] 18 Sep, 2012 [facility] [address] [id number] [address] [place] [address], [place] [address] Sep, [facility] [address] [id number] [address] [place] [address], [place] [address] Aug, [facility] [address] [id number] [address] [place] [address], [place] [address] Aug, [facility] [address] [id number] [address] [place] [address], [place] [address] Aug, [facility] [address] [id number] [address] [place] [address], [place] [address] Jul, [facility] [address] [id number] [address] [place] [address], [place] [address] Jul, [facility] [address] [id number] [address] [place] [address], [place] [address] Jul, [facility] [address] [id number] [address] [place] [address], [place] [address] 08 Jul, 2012 [facility] [address] [id number] [address] [place] [address], [place] [address] 06 Jul, 2012 [facility] [address] [id number] [address] [place] [address], [place] [address] 05 Jul, 2012 [facility] [address] [id number] [address] [place] [address], [place] [address] 15 Jun, 2012 [facility] [address] [id number] [address] [place] [address], [place] [address] Apr, [facility] [address] [id number] [address] [place] [address], [place] [address] Apr, [facility] [address] [id number] [address] [place] [address], [place] [address] Apr, [facility] [address] [id number] [address] [place] [address], [place] [address] Apr, [facility] [address] [id number] [address] [place] [address], [place] [address] Mar, [facility] [address] [id number] [address] [place] [address], [place] [address] Mar, [facility] [address] [id number] [address] [place] [address], [place] [address] Mar, [facility] [address] [id number] [address] [place] [address], [place] [address] Mar, [facility] [address] [id number] [address] [place] [address], [place] [address] Mar, [facility] [address] [id number] [address] [place] [address], [place] [address] Feb, [facility] [address] [id number] [address] [place] [address], [place] [address] Jan, [facility] [address] [id number] [address] [place] [address], [place] [address] Jan, [facility] [address] [id number] [address] [place] [address], [place] [address] Jan, [facility] [address] [id number] [address] [place] [address], [place] [address] Dec, [facility] [address] [id number] [address] [place] [address], [place] [address] Nov, [facility] [address] [id number] [address] [place] [address], [place] [address] Nov, [facility] [address] [id number] [address] [place] [address], [place] [address] Nov, [facility] [address] [id number] [address] [place] [address], [place] [address] Nov, [facility] [address] [facility] [id number] [address] [place] [id number] Nov, [facility] [address] [facility] [id number] [address] [place] [phone] October, [facility] [address] [facility] [id number] [address] [place] [phone] October, [facility] [address] [facility] [id number] [address] [place] [id number] October, [facility] [address] [facility] [id number] [address] [place] [id number] October, [facility] [address] [facility] [id number] [address] [place] [id number] October, IMMUNIZATIONS No Known Immunizations SOCIAL HISTORY Never Assessed REASON FOR VISIT PLAN OF CARE VITAL SIGNS Height 66 in 2013-06-06 Weight 271.4 lbs 2013-06-06 Temperature 97.5 degrees Fahrenheit 2013-06-06 Heart Rate 74 bpm 2013-06-06 Respiratory Rate 18 2013-06-06 Blood pressure systolic 112 mmHg 2013-06-06 Blood pressure diastolic 70 mmHg 2013-06-06 MEDICATIONS Unknown Medications RESULTS No Results PROCEDURES Procedure Date Ordered Result Body Site BASIC METABOLIC PANEL Jun 06, 2013 VENIPUNCT, ROUTINE* Jun 06, 2013 INSTRUCTIONS MEDICATIONS ADMINISTERED No Known [...]
--- OUTSIDE RECORDS SUMMARY | 2020-01-25 08:13 | XMS REPORT ---
Author Author Velma CORDERO Organization [facility] Address [address] [place] [address] Care Team Providers Care Director Of Institutional Giving Name Role Phone STEPHAN CORDERO Unavailable PROBLEMS Type Condition ICD9-CM Code BIT06-UD Code Onset Dates Condition S tatus SNOMED Code Problem Corns L84 Active 781988273 Problem Primary insomnia F51.01 Active 397 2004 Problem Hyperparathyroidism E21.3 Active 55286305 Problem Hypercholesteremia E78.0 Active 1 5940407 Problem Mood disorder F39 Active 461393 05 Problem Arthritis M19.90 Active 7193729 Problem 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 Active 25670078 Problem Myalgia M79.1 Active 15689717 Problem Chronic kidney disease, stage 4 (severe) N18.4 Active 842289496 Problem Primary osteoarthritis of left knee M17.12 Active 542571934830809 Problem Irritable bowel syndrome with both constipation and diarrh ea K58.2 Active 44067125 Problem Other chronic pain G89.29 Active 8 5156320 Problem BPV (benign positional vertigo), bilateral H81.13 Active 389431195 Problem Hyperparathyroidism, unspecified E21.3 Active 29971392 Problem Parathyroid 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 Active 68253375 Problem Body mass index (BMI) of 40.0-44.9 in adult Z68.41 Active 309075396 Problem Unspecified kidney failure N19 Act chip 57010685 Problem 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 Active 123765570 Problem Unspecified inflammatory spo ndylopathy, sacral and sacrococcygeal region M46.98 Active 66497675 ALLERGIES No Information ENCOUNTERS Encounter Location Date Diagnosis [facility] [address] [facility] [id number] [address] [place] [address] Dec, [facility] [address] [facility] [id number] [address] [place] [address] Nov, Hyperparathyroidism, unspeci fied E21.3 [facility] [place] [address] [place] [id number] [address] [place] [address] 16 Nov, 2019 Hyperparathyroidism, unspeci fied E21.3 [place] [address] [facility] [id number] [address] [place] [address] Nov, Chronic kidney disease, stag e 4 (severe) N18.4 ; Hyperparathyroidism, unspecified E21.3 and Left otitis media with effusion H65.92 [place] [address] [place] [id number] [address] [place] [address] Nov, Hyperparathyroidism, unspeci fied E21.3 [place] [address] [place] [id number] [address] [place] [address] October, [facility] [place] [address] [place] [id number] [place] [address] October, Hyperparathyroidism, unspeci fied E21.3 [place] [address] [place] [id number] [address] [place] [address] October, Hyperparathyroidism, unspeci fied E21.3 [place] [address] [place] [id number] [address] [place] [address] Sep, Hyperparathyroidism, unspeci fied E21.3 [place] [address] [place] [id number] [address] [place] [address] Aug, Hyperparathyroidism, unspeci fied E21.3 [place] [address] [place] [id number] [address] [place] [address] Aug, Pain in left knee M25.562 ; Other chronic pain G89.29 ; Unspecified inflammatory spondylopathy, sacral and sacrococcygeal region M46.98 ; Chronic kidney disease, stage 4 (severe) N18.4 and Hyperparathyroidism, unspecified E21.3 [place] [address] [place] [id number] [address] [place] [address] Jul, [place] [address] [place] [id number] [address] [place] [address] Jul, Arthritis M19.90 [facility] [address] [id number] [address] [place] [address] Jun, Knee pain, left M25.562 [facility] [address] [facility] [id number] [address] [place] [address] May, Arthritis M19.90 [facility] [address] [facility] [id number] [address] [place] [address] Apr, Well woman exam without gyne cological exam Z00.00 and Screening for breast cancer Z12.39 [place] [address] [facility] [id number] [address] [place] [address] Mar, Arthritis M19.90 [facility] [address] [facility] [id number] [address] [place] [address] Mar, Arthritis M19.90 [facility] [address] [facility] [id number] [address] [place] [address] Mar, [facility] [address] [facility] [id number] [address] [place] [address] Mar, Arthritis M19.90 [address] Encount er for immunization Z23 [facility] [address] [facility] [id number] [address] [place] [address] Feb, Arthritis M19.90 [facility] [address] [facility] [id number] [address] [place] [address] Feb, [facility] [address] [facility] [id number] [address] [place] [address] Feb, Other specified disorders of bone density and structure, unspecified site M85.80 [facility] [address] [facility] [id number] [address] [place] [address] Jan, Arthritis M19.90 [facility] [address] [facility] [id number] [address] [place] [address] Dec, Arthritis M19.90 [place] [address] [facility] [id number] [address] [place] [address] 26 Nov, 2018 Inflammatory spondylopathy o f sacral region M46.98 [facility] [address] [facility] [id number] [address] [place] [address] 21 Nov, 2018 [facility] [address] [facility] [id number] [address] [place] [address] 14 Nov, 2018 Labyrinthitis of left ear H8 3.02 [facility] [address] [facility] [id number] [address] [place] [address] 03 Nov, 2018 Arthritis M19.90 [facility] [address] [facility] [id number] [address] [place] [address] 15 Sep, 2018 Arthritis M19.90 [facility] [address] [facility] [id number] [address] [place] [address] Sep, Renal insufficiency N28.9 an d Unspecified kidney failure N19 [facility] [address] [facility] [id number] [address] [place] [address] Sep, Renal insufficiency N28.9 an d Unspecified kidney failure N19 [facility] [address] [facility] [id number] [address] [place] [address] Sep, Arthritis M19.90 [facility] [address] [facility] [id number] [address] [place] [address] Aug, Exercise counseling Z71.82 [facility] [address] [facility] [id number] [address] [place] [address] Aug, [facility] [address] [facility] [id number] [address] [place] [address] Jul, Labyrinthitis of left ear H8 3.02 [facility] [address] [facility] [id number] [address] [place] [address] 22 Jul, 2018 Labyrinthitis of left ear H8 3.02 [facility] [address] [facility] [id number] [address] [place] [address] 19 Jul, 2018 Exercise counseling Z71.82 [place] [id number] [facility] [id number] [address] [place] [address] 18 Jul, 2018 [place] [address] [place] [id number] [address] [place] [address] 14 Jul, 2018 Arthritis M19.90 [place] [address] [facility] [id number] [address] [place] [address] 13 Jul, 2018 Encounter for Medicare annua l wellness exam Z00.00 ; Chronic kidney disease, stage 4 (severe) N18.4 ; Body mass index (BMI) of 40.0-44.9 in adult Z68.41 ; Hyperparathyroidism E21.3 and BMI 40.0-44.9, adult Z68.41 [place] [address] [place] [id number] [address] [place] [address] 13 Jul, 2018 Encounter for Medicare annua l wellness exam Z00.00 ; Chronic kidney disease, stage 4 (severe) N18.4 ; Hyperparathyroidism E21.3 ; Body mass index (BMI) of 40.0-44.9 in adult Z68.41 and Encounter for immunization Z23 [place] [address] [address] 11 Jul, 2018 Tail bone pain M53.3 [place] [address] [place] [id number] [address] [place] [address] Jun, Exercise counseling Z71.82 [place] [address] [place] [id number] [address] [place] [address] Jun, Labyrinthitis of left ear H8 3.02 [place] [address] [facility] [id number] [address] [place] [address] Jun, Tail bone pain M53.3 ; Irrit able bowel syndrome with both constipation and diarrhea K58.2 and Dysfunction of left eustachian tube H69.82 [place] [address] [place] [id number] [address] [place] [address] Jun, Exercise counseling Z71.82 [facility] [address] [id number] [address] [place] [address] Jun, Arthritis M19.90 [facility] [address] [id number] [address] [place] [address] Jun, Irritable bowel syndrome wit h both constipation and diarrhea K58.2 ; Tail bone pain M53.3 and Dysfunction of left eustachian tube H69.82 [facility] [address] [id number] [address] [place] [address] Jun, Exercise counseling Z71.82 [place] [address] [id number] [address] [place] [address] Jun, Exercise counseling Z71.82 [facility] [address] [id number] [address] [place] [address] Jun, Labyrinthitis of left ear H8 3.02 [facility] [address] [id number] [address] [place] [address] May, Exercise counseling Z71.82 [facility] [address] [id number] [address] [place] [address] May, Arthritis M19.90 [facility] [address] [id number] [address] [place] [address] May, Exercise counseling Z71.82 [facility] [address] [id number] [address] [place] [address] May, Exercise counseling Z71.82 [facility] [address] [id number] [address] [place] [address] May, Labyrinthitis of left ear H8 3.02 [facility] [address] [id number] [address] [place] [address] May, Exercise counseling Z71.82 [facility] [address] [id number] [address] [place] [address] Apr, Arthritis M19.90 [place] [id number] [facility] [id number] [address] [place] [address] Apr, Exercise counseling Z71.82 [place] [address] [facility] [id number] [address] [place] [address] Apr, Exercise counseling Z71.82 [place] [address] [place] [id number] [address] [place] [address] Apr, Primary osteoarthritis of le ft knee M17.12 [place] [address] [facility] [id number] [address] [place] [address] 08 Apr, 2018 Labyrinthitis of left ear H8 3.02 [place] [address] [place] [id number] [address] [place] [address] Mar, Arthritis M19.90 [place] [address] [place] [id number] [address] [place] [address] Mar, [place] [address] [place] [id number] [address] [place] [address] Mar, Chronic kidney disease, stag e 4 (severe) N18.4 [place] [address] [place] [id number] [place] [address] Mar, Chronic kidney disease, stag e 4 (severe) N18.4 [place] [address] [place] [id number] [address] [place] [address] Mar, Labyrinthitis of left ear H8 3.02 [place] [address] [place] [id number] [address] [place] [address] Mar, Chronic kidney disease, stag e 4 (severe) N18.4 ; Knee pain, left anterior M25.562 ; Deficiency of other specified B group vitamins E53.8 and Encounter for immunization Z23 [place] [address] [facility] [id number] [address] [place] [address] Mar, Arthritis M19.90 [place] [address] [place] [id number] [address] [place] [address] Feb, Labyrinthitis of left ear H8 3.02 [place] [address] [place] [id number] [address] [place] [address] Feb, Arthritis M19.90 [facility] [address] [facility] [id number] [address] [place] [address] Jan, Labyrinthitis of left ear H8 3.02 [facility] [address] [place] [id number] [address] [place] [address] Jan, Arthritis M19.90 [place] [address] [facility] [id number] [address] [place] [address] Dec, Labyrinthitis of left ear H8 3.02 [place] [address] [place] [id number] [address] [place] [address] Nov, Arthritis M19.90 [place] [address] [place] [id number] [place] [address] Nov, Labyrinthitis of left ear H8 3.02 [place] [address] [place] [id number] [address] [place] [address] Nov, BMI 40.0-44.9, adult Z68.41 ; Chronic kidney disease, stage 4 (severe) N18.4 and Acute right-sided thoracic back pain M54.6 [place] [address] [place] [id number] [place] [address] October, Labyrinthitis of left ear H8 3.02 and Arthritis M19.90 [place] [address] [place] [id number] [address] [place] [address] Sep, BPV (benign positional verti go), bilateral H81.13 ; Dysfunction of left eustachian tube H69.82 and BMI 40.0-44.9, adult Z68.41 [place] [address] [place] [id number] [address] [place] [address] Sep, Labyrinthitis of left ear H8 3.02 and Arthritis M19.90 [facility] [address] [id number] [address] [place] [address] Sep, [facility] [address] [id number] [address] [place] [address] Sep, [facility] [address] [id number] [address] [place] [address] Sep, Chronic kidney disease, stag e 4 (severe) N18.4 [facility] [address] [id number] [address] [place] [address] Sep, Chronic kidney disease, stag e 4 (severe) N18.4 [facility] [address] [id number] [address] [place] [address] Aug, Labyrinthitis of left ear H8 3.02 and Arthritis M19.90 [facility] [address] [id number] [address] [place] [address] Aug, [facility] [address] [id number] [address] [place] [address] Jul, [facility] [address] [facility] [id number] [address] [place] [address] Jul, Arthritis M19.90 and Labyrin thitis of left ear H83.02 [facility] [address] [facility] [id number] [address] [place] [address] Jul, [facility] [address] [id number] [address] [place] [address] Jun, [facility] [address] [facility] [id number] [address] [place] [address] Jun, Arthritis M19.90 and Labyrin thitis of left ear H83.02 [facility] [address] [facility] [id number] [address] [place] [address] Jun, Pre-op evaluation Z01.818 ; BMI 40.0-44.9, adult Z68.41 and Encounter for immunization Z23 [place] [address] [address] May, Arthritis M19.90 and Labyrin thitis of left ear H83.02 [place] [address] [place] [id number] [place] [address] Apr, Labyrinthitis of left ear H8 3.02 [place] [address] [place] [id number] [place] [address] Apr, Arthritis M19.90 and Labyrin thitis of left ear H83.02 [place] [address] [address] Mar, Arthritis M19.90 and Labyrin thitis of left ear H83.02 [place] [address] [address] Mar, Chronic kidney disease, stag e 4 (severe) N18.4 [place] [address] [address] Feb, Arthritis M19.90 and Labyrin thitis of left ear H83.02 [place] [address] [place] [id number] [place] [address] Jan, Labyrinthitis of left ear H8 3.02 and Deficiency of other specified B group vitamins E53.8 [place] [address] [place] [id number] [address] [place] [address] Dec, Arthritis M19.90 [place] [address] [place] [id number] [place] [address] Dec, BPV (benign positional verti go), bilateral H81.13 [place] [address] [place] [id number] [address] [place] [address] Dec, [place] [address] [place] [id number] [place] [address] Dec, [facility] [address] [facility] [id number] [address] [place] [address] Dec, [facility] [address] [facility] [id number] [address] [place] [address] Nov, Arthritis M19.90 and Deficie ncy of other specified B group vitamins E53.8 [facility] [address] [facility] [id number] [address] [place] [address] Nov, Arthritis M19.90 [facility] [address] [facility] [id number] [address] [place] [address] Nov, Hyperparathyroidism E21.3 [facility] [address] [facility] [id number] [address] [place] [address] October, [facility] [address] [facility] [id number] [address] [place] [address] October, Hyperparathyroidism E21.3 [facility] [address] [facility] [id number] [address] [place] [address] October, [facility] [address] [facility] [id number] [address] [place] [address] October, Renal insufficiency N28.9 an d Hyperparathyroidism E21.3 [facility] [address] [facility] [id number] [address] [place] [address] October, [facility] [address] [facility] [id number] [address] [place] [address] October, Renal insufficiency N28.9 an d Hyperparathyroidism E21.3 [facility] [address] [facility] [id number] [address] [place] [address] October, Arthritis M19.90 [facility] [address] [facility] [id number] [address] [place] [address] Sep, [facility] [address] [facility] [id number] [address] [place] [address] Sep, Lumbar neuritis M54.16 ; Tho racic abscess J86.9 and Deficiency of other specified B group vitamins E53.8 [facility] [address] [id number] [address] [place] [address] Sep, [facility] [address] [facility] [id number] [address] [place] [address] Aug, Arthritis M19.90 [facility] [address] [facility] [id number] [address] [place] [address] Aug, Hyperparathyroidism E21.3 [facility] [address] [facility] [id number] [address] [place] [address] Aug, Hyperparathyroidism E21.3 [facility] [address] [facility] [id number] [address] [place] [address] Aug, Arthritis M19.90 [facility] [address] [facility] [id number] [address] [place] [address] Jul, Mass of throat R22.1 [facility] [address] [facility] [id number] [address] [place] [address] Jul, [facility] [address] [facility] [id number] [address] [place] [address] Jul, Arthritis M19.90 [facility] [address] [facility] [id number] [address] [place] [address] Jun, Arthritis M19.90 [facility] [address] [facility] [id number] [address] [place] [address] Jun, [facility] [address] [facility] [id number] [address] [place] [address] Jun, Renal insufficiency N28.9 an d Parathyroid abnormality E21.5 [facility] [address] [facility] [id number] [address] [place] [address] 05 Jun, 2016 Medicare welcome exam Z00.00 ; Encounter for immunization Z23 ; Arthritis M19.90 ; Medicare annual wellness visit, initial Z00.00 ; Medicare annual wellness visit, subsequent Z00.00 and Deficiency of other specified B group vitamins E53.8 [facility] [address] [facility] [id number] [address] [place] [address] 29 May, 2016 Renal insufficiency N28.9 an d Parathyroid abnormality E21.5 [facility] [address] [facility] [id number] [address] [place] [phone] 19 May, 2016 Renal insufficiency N28.9 [facility] [address] [place] [id number] [address] [place] [id number] 16 May, 2016 Renal insufficiency N28.9 [facility] [address] [facility] [id number] [address] [place] [phone] May, [facility] [address] [facility] [id number] [address] [place] [phone] Apr, [facility] [address] [place] [place] [id number] [address] [place] [phone] Apr, [facility] [address] [place] [id number] [address] [place] [phone] 14 Apr, 2016 Mass of throat R22.1 [facility] [address] [facility] [id number] [address] [place] [phone] Apr, [facility] [address] [facility] [id number] [address] [place] [phone] Apr, Mass of throat R22.1 [facility] [address] [facility] [id number] [address] [place] [phone] 04 Apr, 2016 Mass of throat R22.1 [facility] [address] [facility] [id number] [address] [place] [phone] Mar, [facility] [address] [place] [place] [id number] [address] [place] [phone] Mar, [facility] [address] [facility] [id number] [address] [place] [id number] Mar, [facility] [address] [place] [place] [id number] [address] [place] [phone] Mar, Parathyroid abnormality E21. 5 and Encounter for immunization Z23 [facility] [address] [id number] [address] [place] [phone] Mar, [facility] [address] [id number] [address] [place] [phone] Mar, [facility] [address] [id number] [address] [place] [phone] 21 Feb, 2016 Renal insufficiency N28.9 an d Hyperparathyroidism E21.3 [facility] [address] [id number] [address] [place] [phone] 19 Feb, 2016 [facility] [address] [id number] [address] [place] [phone] 15 Feb, 2016 Renal insufficiency N28.9 an d Hyperparathyroidism E21.3 [facility] [address] [id number] [address] [place] [phone] 14 Feb, 2016 [facility] [address] [id number] [address] [place] [address] 12 Feb, 2016 [facility] [address] [id number] [address] [place] [address] 09 Feb, 2016 [facility] [address] [id number] [address] [place] [address] Jan, [facility] [address] [id number] [address] [place] [address] Jan, Arthritis M19.90 ; Lumbago w ith sciatica, right side M54.41 and Other chronic pain G89.29 [facility] [address] [id number] [address] [place] [address] Jan, [facility] [address] [id number] [address] [place] [address] Dec, Arthritis M19.90 ; Lumbago w ith sciatica, right side M54.41 and Other chronic pain G89.29 [facility] [address] [id number] [address] [place] [address] 16 Nov, 2015 Deficiency of other specifie d B group vitamins E53.8 ; Primary insomnia F51.01 ; Mood disorder F39 and Lumbago with sciatica, right side M54.41 [facility] [address] [id number] [address] [place] [address] 13 Nov, 2015 Hyperparathyroidism E21.3 [facility] [address] [id number] [address] [place] [address] Nov, Unspecified kidney failure N 19 and Hyperparathyroidism E21.3 [place] [address] [id number] [place] [address] October, Hyperparathyroidism E21.3 [place] [address] [id number] [place] [address] October, [place] [address] [address] October, Hyperparathyroidism E21.3 [place] [address] [place] [id number] [place] [address] October, Hyperparathyroidism E21.3 [place] [address] [address] Sep, Hyperparathyroidism E21.3 ; Hypercholesterolemia E78.0 and Arthritis M19.90 [place] [id number] [place] [address] Aug, [place] [address] [place] [id number] [address] [place] [address] Aug, Deficiency of other specifie d B group vitamins E53.8 [place] [address] [facility] [id number] [address] [place] [address] 07 Aug, 2015 [place] [address] [place] [id number] [address] [place] [address] Jul, Urinary frequency R35.0 [place] [address] [id number] [place] [address] Jul, Urinary frequency R35.0 [facility] [address] [facility] [id number] [address] [place] [address] Jul, [facility] [address] [facility] [id number] [address] [place] [address] Jul, [facility] [address] [facility] [id number] [address] [place] [address] Jun, Pain in left knee M25.562 [facility] [address] [id number] [address] [place] [address] Jun, [facility] [address] [facility] [id number] [address] [place] [address] May, Swelling of left knee joint M25.462 [facility] [address] [facility] [id number] [address] [place] [address] May, [facility] [address] [facility] [id number] [address] [place] [address] May, [facility] [address] [facility] [id number] [address] [place] [address] May, [facility] [address] [facility] [id number] [address] [place] [address] Apr, Renal insufficiency N28.9 an d Chronic kidney disease, stage 4 (severe) N18.4 [facility] [address] [facility] [id number] [address] [place] [address] Apr, Unspecified kidney failure N 19 [facility] [address] [facility] [id number] [address] [place] [address] Apr, Unspecified kidney failure N 19 [facility] [address] [facility] [id number] [address] [place] [address] Apr, [facility] [address] [facility] [id number] [address] [place] [address] Apr, Hyperparathyroidism, unspeci fied 252.00 [facility] [address] [id number] [address] [place] [address] Apr, [facility] [address] [id number] [address] [place] [address] Mar, [facility] [address] [id number] [address] [place] [address] Mar, [facility] [address] [facility] [id number] [address] [place] [address] Mar, Hyperparathyroidism, unspeci fied 252.00 [facility] [address] [id number] [address] [place] [address] Feb, [facility] [address] [facility] [id number] [address] [place] [address] Feb, Otalgia 388.70 [facility] [address] [facility] [id number] [address] [place] [address] Feb, [facility] [address] [facility] [id number] [address] [place] [address] Feb, [facility] [address] [id number] [address] [place] [address] Jan, [facility] [address] [facility] [id number] [address] [place] [address] Jan, Hyperparathyroidism, unspeci fied 252.00 [facility] [address] [facility] [id number] [address] [place] [address] Jan, [facility] [address] [facility] [id number] [address] [place] [address] Jan, Other B-complex deficiencies 266.2 and Hyperparathyroidism, unspecified 252.00 [facility] [address] [id number] [address] [place] [address] Jan, [facility] [address] [facility] [id number] [address] [place] [address] Jan, [facility] [address] [facility] [id number] [address] [place] [address] Jan, [facility] [address] [id number] [address] [place] [address] Dec, [facility] [address] [id number] [address] [place] [address] Dec, [facility] [address] [id number] [address] [place] [address] Dec, [facility] [address] [id number] [address] [place] [address] Nov, Routine check-up V70.0 and P re-op exam V72.84 [facility] [address] [id number] [address] [place] [address] Nov, [facility] [address] [id number] [address] [place] [address] Nov, [facility] [address] [id number] [address] [place] [address] October, [facility] [address] [id number] [address] [place] [address] October, Other B-complex deficiencies 266.2 [facility] [address] [id number] [address] [place] [address] October, [facility] [address] [id number] [address] [place] [address] Sep, [facility] [address] [id number] [address] [place] [address] Sep, [facility] [address] [id number] [address] [place] [address] Aug, [facility] [address] [id number] [address] [place] [address] Aug, [facility] [address] [id number] [address] [place] [address] Aug, [facility] [address] [id number] [address] [place] [address], [place] [address] 17 Aug, 2014 [facility] [address] [id number] [address] [place] [address], [place] [address] Aug, 2014 [facility] [address] [id number] [address] [place] [address], [place] [address] Aug, 2014 [facility] [address] [id number] [address] [place] [address], [place] [address] 18 Jul, 2014 [facility] [address] [id number] [address] [place] [address], [place] [address] Jul, 2014 [facility] [address] [id number] [address] [place] [address], [place] [address] Jul, 2014 [facility] [address] [id number] [address] [place] [address], [place] [address] Jul, 2014 [facility] [address] [id number] [address] [place] [address], [place] [address] Jul, 2014 [facility] [address] [id number] [address] [place] [address], [place] [address] Jul, 2014 [facility] [address] [id number] [address] [place] [address], [place] [address] Jul, 2014 [facility] [address] [id number] [address] [place] [address] 10 Jul, 2014 [facility] [address] [id number] [address] [place] [address] Jul, 2014 [facility] [address] [id number] [address] [place] [address], [place] [address] Jul, 2014 [facility] [address] [id number] [address] [place] [address], [place] [address] Jul, 2014 [facility] [address] [id number] [address] [place] [address] Jul, 2014 [facility] [address] [id number] [address] [place] [address] Jul, [facility] [address] [id number] [address] [place] [address], [place] [address] Jul, [facility] [address] [id number] [address] [place] [address], [place] [address] Jun, [facility] [address] [id number] [address] [place] [address], [place] [address] Jun, [facility] [address] [id number] [address] [place] [address], [place] [address] Jun, [facility] [address] [id number] [address] [place] [address], [place] [address] Jun, [facility] [address] [id number] [address] [place] [address], [place] [address] Jun, [facility] [address] [id number] [address] [place] [address], [place] [address] Jun, [facility] [address] [id number] [address] [place] [address], [place] [address] Jun, [facility] [address] [id number] [address] [place] [address], [place] [address] Jun, [facility] [address] [id number] [address] [place] [address], [place] [address] Jun, [facility] [address] [id number] [address] [place] [address], [place] [address] Jun, [facility] [address] [id number] [address] [place] [address], [place] [address] Jun, [facility] [address] [id number] [address] [place] [address], [place] [address] Jun, [facility] [address] [id number] [address] [place] [address], [place] [address] Jun, [facility] [address] [id number] [address] [place] [address], [place] [address] Jun, [facility] [address] [id number] [address] [place] [address], [place] [address] 15 May, 2014 [facility] [address] [id number] [address] [place] [address], [place] [address] May, [facility] [address] [id number] [address] [place] [address], [place] [address] May, [facility] [address] [id number] [address] [place] [address], [place] [address] May, [facility] [address] [id number] [address] [place] [address], [place] [address] Apr, [facility] [address] [id number] [address] [place] [address], [place] [address] Apr, [facility] [address] [id number] [address] [place] [address], [place] [address] Apr, [facility] [address] [id number] [address] [place] [address], [place] [address] Apr, [facility] [address] [id number] [address] [place] [address], [place] [address] Apr, [facility] [address] [id number] [address] [place] [address], [place] [address] Apr, [facility] [address] [id number] [address] [place] [address], [place] [address] Mar, [facility] [address] [id number] [address] [place] [address], [place] [address] Mar, [facility] [address] [id number] [address] [place] [address], [place] [address] Mar, [facility] [address] [id number] [address] [place] [address], [place] [address] Mar, [facility] [address] [id number] [address] [place] [address], [place] [address] Mar, [facility] [address] [id number] [address] [place] [address], [place] [address] Mar, [facility] [address] [id number] [address] [place] [address], [place] [address] Mar, [facility] [address] [id number] [address] [place] [address], [place] [address] Mar, [facility] [address] [id number] [address] [place] [address], [place] [address] Mar, 2013 [facility] [address] [id number] [address] [place] [address], [place] [address] Mar, [facility] [address] [id number] [address] [place] [address], [place] [address] Mar, [facility] [address] [id number] [address] [place] [address], [place] [address] Mar, [facility] [address] [id number] [address] [place] [address], [place] [address] Mar, [facility] [address] [id number] [address] [place] [address], [place] [address] 26 Feb, 2013 [facility] [address] [id number] [address] [place] [address], [place] [address] 26 Feb, 2013 [facility] [address] [id number] [address] [place] [address], [place] [address] 23 Feb, 2013 [facility] [address] [id number] [address] [place] [address], [place] [address] 23 Feb, 2013 [facility] [address] [id number] [address] [place] [address] 19 Feb, 2013 [facility] [address] [id number] [address] [place] [address], [place] [address] 19 Feb, 2013 [facility] [address] [id number] [address] [place] [address], [place] [address] 13 Feb, 2013 [facility] [address] [id number] [address] [place] [address], [place] [address] 13 Feb, 2013 [facility] [address] [id number] [address] [place] [address], [place] [address] Feb, [facility] [address] [id number] [address] [place] [address], [place] [address] Feb, [facility] [address] [id number] [address] [place] [address], [place] [address] Jan, [facility] [address] [id number] [address] [place] [address], [place] [address] Jan, [facility] [address] [id number] [address] [place] [address], [place] [address] Dec, [facility] [address] [id number] [address] [place] [address], [place] [address] Dec, [facility] [address] [id number] [address] [place] [address], [place] [address] Dec, [facility] [address] [id number] [address] [place] [address], [place] [address] Dec, [facility] [address] [id number] [address] [place] [address], [place] [address] Dec, [facility] [address] [id number] [address] [place] [address], [place] [address] Dec, [facility] [address] [id number] [address] [place] [address], [place] [address] Nov, [facility] [address] [id number] [address] [place] [address], [place] [address] Nov, [facility] [address] [id number] [address] [place] [address], [place] [address] Nov, [facility] [address] [id number] [address] [place] [address], [place] [address] Nov, [facility] [address] [id number] [address] [place] [address], [place] [address] October, [facility] [address] [id number] [address] [place] [address], [place] [address] October, [facility] [address] [id number] [address] [place] [address], [place] [address] October, [facility] [address] [id number] [address] [place] [address], [place] [address] October, [facility] [address] [id number] [address] [place] [address], [place] [address] October, [facility] [address] [id number] [address] [place] [address], [place] [address] October, [facility] [address] [id number] [address] [place] [address], [place] [address] October, [facility] [address] [id number] [address] [place] [address], [place] [address] October, [facility] [address] [id number] [address] [place] [address], [place] [address] October, [facility] [address] [id number] [address] [place] [address], [place] [address] October, [facility] [address] [id number] [address] [place] [address], [place] [address] October, [facility] [address] [id number] [address] [place] [address], [place] [address] October, [facility] [address] [id number] [address] [place] [address], [place] [address] October, [facility] [address] [id number] [address] [place] [address], [place] [address] October, [facility] [address] [id number] [address] [place] [address], [place] [address] October, [facility] [address] [id number] [address] [place] [address], [place] [address] October, [facility] [address] [id number] [address] [place] [address], [place] [address] Sep, [facility] [address] [id number] [address] [place] [address], [place] [address] Sep, [facility] [address] [id number] [facility] [address] Sep, [facility] [address] [id number] [address] [place] [address], [place] [address] Sep, [facility] [address] [id number] [facility] [address] Sep, [facility] [address] [id number] [address] [place] [address], [place] [address] Sep, [facility] [address] [id number] [address] [address] Aug, [facility] [address] [id number] [address] [place] [address], [place] [address] Aug, [facility] [address] [id number] [address] [place] [address], [place] [address] Aug, [facility] [address] [id number] [address] [place] [address], [place] [address] Aug, [facility] [address] [id number] [address] [place] [address], [place] [address] Aug, [facility] [address] [id number] [address] [place] [address], [place] [address] Aug, [facility] [address] [id number] [address] [place] [address], [place] [address] Jul, [facility] [address] [id number] [address] [place] [address], [place] [address] Jul, [facility] [address] [id number] [address] [place] [address], [place] [address] Jul, [facility] [address] [id number] [address] [place] [address], [place] [address] Jul, [facility] [address] [id number] [address] [place] [address], [place] [address] Jun, [facility] [address] [id number] [address] [place] [address], [place] [address] 13 Jun, 2013 [facility] [address] [id number] [address] [place] [address], [place] [address] 11 May, 2013 [facility] [address] [id number] [address] [place] [address], [place] [address] May, [facility] [address] [id number] [address] [place] [address], [place] [address] May, [facility] [address] [id number] [address] [place] [address], [place] [address] May, [facility] [address] [id number] [address] [place] [address], [place] [address] May, [facility] [address] [id number] [address] [place] [address], [place] [address] Apr, [facility] [address] [id number] [address] [place] [address], [place] [address] Apr, [facility] [address] [id number] [address] [place] [address], [place] [address] Apr, [facility] [address] [id number] [address] [place] [address], [place] [address] Apr, [facility] [address] [id number] [address] [place] [address], [place] [address] 04 Apr, 2013 [facility] [address] [id number] [address] [place] [address], [place] [address] 04 Apr, 2013 [facility] [address] [id number] [address] [place] [address], [place] [address] 15 Mar, 2013 [facility] [address] [id number] [address] [place] [address], [place] [address] 15 Mar, 2013 [facility] [address] [id number] [address] [place] [address], [place] [address] 14 Mar, 2013 [facility] [address] [id number] [address] [place] [address], [place] [address] Mar, [facility] [address] [id number] [address] [place] [address], [place] [address] Mar, [facility] [address] [id number] [address] [place] [address], [place] [address] Mar, [facility] [address] [id number] [address] [place] [address], [place] [address] Feb, [facility] [address] [id number] [address] [place] [address], [place] [address] Feb, [facility] [address] [id number] [address] [place] [address], [place] [address] Feb, [facility] [address] [id number] [address] [place] [address], [place] [address] Jan, [facility] [address] [id number] [address] [place] [address], [place] [address] Jan, [facility] [address] [id number] [address] [place] [address], [place] [address] Jan, [facility] [address] [id number] [address] [place] [address], [place] [address] Jan, [facility] [address] [id number] [address] [place] [address], [place] [address] Jan, [facility] [address] [id number] [address] [place] [address], [place] [address] Jan, [facility] [address] [id number] [address] [place] [address], [place] [address] Dec, [facility] [address] [id number] [address] [place] [address], [place] [address] Dec, [facility] [address] [id number] [address] [place] [address], [place] [address] Dec, [facility] [address] [id number] [address] [place] [address], [place] [address] Dec, [facility] [address] [id number] [address] [place], [place] [address], [place] [address] 18 Dec, 2012 [facility] [address] [id number] [address] [place] [address], [place] [address] 09 Dec, 2012 [facility] [address] [id number] [address] [place] [address], [place] [address] Nov, [facility] [address] [id number] [address] [place] [address], [place] [address] Nov, [facility] [address] [id number] [address] [place] [address], [place] [address] Nov, [facility] [address] [id number] [address] [place] [address], [place] [address] Nov, [facility] [address] [id number] [address] [place] [address], [place] [address] Nov, [facility] [address] [id number] [address] [place] [address], [place] [address] Nov, [facility] [address] [id number] [address] [place] [address], [place] [address] October, [facility] [address] [id number] [address] [place] [address], [place] [address] October, [facility] [address] [id number] [address] [place] [address], [place] [address] October, [facility] [address] [id number] [address] [place] [address], [place] [address] October, [facility] [address] [id number] [address] [place] [address], [place] [address] October, [facility] [address] [id number] [address] [place] [address], [place] [address] Sep, [facility] [address] [id number] [address] [place] [address], [place] [address] Sep, [facility] [address] [id number] [address] [place] [address], [place] [address] Sep, [facility] [address] [id number] [address] [place] [address], [place] [address] Sep, [facility] [address] [id number] [address] [place] [address], [place] [address] Sep, [facility] [address] [id number] [address] [place] [address], [place] [address] Aug, [facility] [address] [id number] [address] [place] [address], [place] [address] Aug, [facility] [address] [id number] [address] [place] [address], [place] [address] Aug, [facility] [address] [id number] [address] [place] [address], [place] [address] Jul, [facility] [address] [id number] [address] [place] [address], [place] [address] Jul, [facility] [address] [id number] [address] [place] [address], [place] [address] Jul, [facility] [address] [id number] [address] [place] [address], [place] [address] Jul, [facility] [address] [id number] [address] [place] [address], [place] [address] 06 Jul, 2012 [facility] [address] [id number] [address] [place] [address], [place] [address] 05 Jul, 2012 [facility] [address] [id number] [address] [place] [address], [place] [address] 15 Jun, 2012 [facility] [address] [id number] [address] [place] [address], [place] [address] Apr, [facility] [address] [id number] [address] [place] [address], [place] [address] 16 Apr, 2012 [facility] [address] [id number] [address] [place] [address], [place] [address] Apr, [facility] [address] [id number] [address] [place] [address] Apr, [facility] [address] [id number] [address] [place] [address], [place] [address] Mar, [facility] [address] [id number] [address] [place] [address] Mar, [facility] [address] [id number] [address] [place] [address], [place] [address] Mar, [facility] [address] [id number] [address] [place] [address], [place] [address] Mar, [facility] [address] [id number] [address] [place] [address], [place] [address] Mar, [facility] [address] [id number] [address] [place] [address], [place] [address] Feb, [facility] [address] [id number] [address] [place] [address] Jan, [facility] [address] [id number] [address] [place] [address], [place] [address] Jan, [facility] [address] [id number] [address] [place] [address], [place] [address] Jan, [facility] [address] [id number] [address] [place] [address] Dec, [facility] [address] [id number] [address] [place] [address] Nov, [facility] [address] [id number] [address] [place] [address] Nov, [facility] [address] [id number] [address] [place] [address] Nov, [facility] [address] [id number] [address] [place] [address] Nov, [facility] [address] [id number] [address] [place] [address] Nov, [facility] [address] [facility] [id number] [address] [place] [address] October, [facility] [address] [facility] [id number] [address] [place] [address] October, [facility] [address] [facility] [id number] [address] [place] [address] October, [facility] [address] [facility] [id number] [address] [place] [address] October, [facility] [address] [facility] [id number] [address] [place] [address] October, IMMUNIZATIONS No Known Immunizations SOCIAL HISTORY [...]
--- OUTSIDE RECORDS SUMMARY | 2020-01-25 08:13 | XMS REPORT ---
Author Author Velma Javed Doctor Organization [facility] Address Unknown Phone Unavailable Care Team Providers Care [place] Auditor Name Role Phone Migration, Doctor Unavailable Unavailable PROBLEMS Type Condition ICD9-CM Code [id number] Code Onset Dates Condition S tatus SNOMED Code Problem Corns L84 Active 166344567 Problem Primary insomnia F51.01 Active 397 2004 Problem Hyperparathyroidism E21.3 Active 90675170 Problem Hypercholesteremia E78.0 Active 1 7104672 Problem Mood disorder F39 Active 838712 05 Problem Arthritis M19.90 Active 7183793 Problem 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 Active 11572407 Problem Myalgia M79.1 Active 29160870 Problem Chronic kidney disease, stage 4 (severe) N18.4 Active 078152490 Problem Primary osteoarthritis of left knee M17.12 Active [id number] Problem Irritable bowel syndrome with both constipation and diarrh ea K58.2 Active 96617713 Problem Other chronic pain G89.29 Active 8 8283558 Problem BPV (benign positional vertigo), bilateral H81.13 Active 114015480 Problem Hyperparathyroidism, unspecified E21.3 Active 01473570 Problem 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 [id number] [address] [place] [phone] Dec, [facility] [address] [facility] [facility] [id number] [address] [place] [phone] Nov, Hyperparathyroidism, unspeci fied E21.3 [facility] [address] [id number] 16 Nov, 2019 Hyperparathyroidism, unspeci fied E21.3 [place] [address] [address] Nov, Chronic kidney disease, stag e 4 (severe) N18.4 ; Hyperparathyroidism, unspecified E21.3 and Left otitis media with effusion H65.92 [place] [address] [address] Nov, Hyperparathyroidism, unspeci fied E21.3 [place] [address] [address] October, [place] [address] [address] October, Hyperparathyroidism, unspeci fied E21.3 [place] [address] [address] October, Hyperparathyroidism, unspeci fied E21.3 [place] [address] [address] Sep, Hyperparathyroidism, unspeci fied E21.3 [place] [address] [address] Aug, Hyperparathyroidism, unspeci fied E21.3 [place] [address] [address] 05 Aug, 2019 Pain in left knee M25.562 ; Other chronic pain G89.29 ; Unspecified inflammatory spondylopathy, sacral and sacrococcygeal region M46.98 ; Chronic kidney disease, stage 4 (severe) N18.4 and Hyperparathyroidism, unspecified E21.3 [place] [address] [address] Jul, [facility] [address] [place] [id number] [place] [address] Jul, Arthritis M19.90 [facility] [address] [id number] [address] [place] [id number] Jun, Knee pain, left M25.562 [facility] [address] [id number] [address] [place] [phone] May, Arthritis M19.90 [facility] [address] [facility] [id number] [address] [place] [id number] Apr, Well woman exam without gyne cological exam Z00.00 and Screening for breast cancer Z12.39 [facility] [address] [id number] [address] [place] [phone] Mar, Arthritis M19.90 [facility] [address] [facility] [id number] [address] [place] [id number] Mar, Arthritis M19.90 [facility] [address] [facility] [facility] [id number] [address] [place] [phone] Mar, [facility] [address] [facility] [id number] [address] [place] [phone] Mar, Arthritis M19.90 and Encount er for immunization Z23 [facility] [address] [id number] [address] [place] [phone] Feb, Arthritis M19.90 [facility] [address] [facility] [id number] [address] [place] [phone] Feb, [facility] [address] [facility] [id number] [address] [place] [phone] Feb, Other specified disorders of bone density and structure, unspecified site M85.80 [facility] [address] [id number] [address] [place] [phone] Jan, Arthritis M19.90 [facility] [address] [facility] [id number] [address] [place] [phone] Dec, Arthritis M19.90 [facility] [address] [facility] [id number] [address] [place] [phone] Nov, Inflammatory spondylopathy o f sacral region M46.98 [facility] [address] [id number] [address] [place] [phone] Nov, [facility] [address] [facility] [id number] [address] [place] [phone] Nov, Labyrinthitis of left ear H8 3.02 [facility] [address] [facility] [facility] [id number] [address] [place] [id number] 03 Nov, 2018 Arthritis M19.90 [facility] [address] [id number] [address] [place] [phone] Sep, Arthritis M19.90 [facility] [address] [facility] [id number] [address] [place] [phone] Sep, Renal insufficiency N28.9 an d Unspecified kidney failure N19 [facility] [address] [facility] [id number] [address] [place] [phone] Sep, Renal insufficiency N28.9 an d Unspecified kidney failure N19 [facility] [address] [id number] [address] [place] [phone] Sep, Arthritis M19.90 [facility] [address] [facility] [id number] [address] [place] [phone] Aug, Exercise counseling Z71.82 [facility] [address] [facility] [id number] [address] [place] [phone] Aug, [facility] [address] [facility] [id number] [address] [place] [phone] Jul, Labyrinthitis of left ear H8 3.02 [facility] [address] [facility] [facility] [id number] [address] [place] [phone] Jul, Labyrinthitis of left ear H8 3.02 [facility] [address] [facility] [id number] [address] [place] [phone] Jul, Exercise counseling Z71.82 [facility] [address] [facility] [id number] [address] [place] [id number] 18 Jul, 2018 [facility] [address] [facility] [id number] [address] [place] [id number] 14 Jul, 2018 Arthritis M19.90 [facility] [address] [facility] [id number] [address] [place] [id number] 13 Jul, 2018 Encounter for Medicare annua l wellness exam Z00.00 ; Chronic kidney disease, stage 4 (severe) N18.4 ; Body mass index (BMI) of 40.0-44.9 in adult Z68.41 ; Hyperparathyroidism E21.3 and BMI 40.0-44.9, adult Z68.41 [place] [address] [facility] [id number] [address] [place] [phone] 13 Jul, 2018 Encounter for Medicare annua l wellness exam Z00.00 ; Chronic kidney disease, stage 4 (severe) N18.4 ; Hyperparathyroidism E21.3 ; Body mass index (BMI) of 40.0-44.9 in adult Z68.41 and Encounter for immunization Z23 [place] [address] [facility] [id number] [address] [place] [id number] 11 Jul, 2018 Tail bone pain M53.3 [place] [address] [facility] [id number] [address] [place] [phone] Jun, Exercise counseling Z71.82 [place] [address] [place] [id number] [address] [place] [id number] Jun, Labyrinthitis of left ear H8 3.02 [place] [address] [facility] [id number] [address] [place] [phone] Jun, Tail bone pain M53.3 ; Irrit able bowel syndrome with both constipation and diarrhea K58.2 and Dysfunction of left eustachian tube H69.82 [place] [address] [facility] [id number] [address] [place] [phone] Jun, Exercise counseling Z71.82 [place] [address] [place] [id number] [address] [place] [phone] Jun, Arthritis M19.90 [facility] [address] [id number] [address] [place] [phone] Jun, Irritable bowel syndrome wit h both constipation and diarrhea K58.2 ; Tail bone pain M53.3 and Dysfunction of left eustachian tube H69.82 [facility] [address] [id number] [address] [place] [id number] Jun, Exercise counseling Z71.82 [facility] [address] [id number] [address] [place] [phone] Jun, Exercise counseling Z71.82 [place] [address] [facility] [id number] [address] [place] [phone] Jun, Labyrinthitis of left ear H8 3.02 [facility] [address] [id number] [address] [place] [phone] May, Exercise counseling Z71.82 [facility] [address] [id number] [address] [place] [phone] May, Arthritis M19.90 [facility] [address] [id number] [address] [place] [id number] May, Exercise counseling Z71.82 [facility] [address] [id number] [address] [place] [phone] May, Exercise counseling Z71.82 [facility] [address] [facility] [id number] [address] [place] [phone] May, Labyrinthitis of left ear H8 3.02 [facility] [address] [id number] [address] [place] [phone] May, Exercise counseling Z71.82 [facility] [address] [id number] [address] [place] [phone] Apr, Arthritis M19.90 [facility] [address] [id number] [address] [place] [phone] Apr, Exercise counseling Z71.82 [place] [address] [facility] [id number] [address] [place] [phone] Apr, Exercise counseling Z71.82 [place] [address] [facility] [id number] [address] [place] [phone] Apr, Primary osteoarthritis of le ft knee M17.12 [place] [address] [place] [id number] [address] [place] [phone] Apr, Labyrinthitis of left ear H8 3.02 [place] [address] [facility] [id number] [address] [place] [phone] Mar, Arthritis M19.90 [place] [address] [place] [id number] [address] [place] [phone] Mar, [place] [address] [id number] Mar, Chronic kidney disease, stag e 4 (severe) N18.4 [place] [address] [place] [id number] [address] [place] [id number] Mar, Chronic kidney disease, stag e 4 (severe) N18.4 [place] [address] [place] [id number] [address] [place] [phone] Mar, Labyrinthitis of left ear H8 3.02 [place] [address] [place] [id number] [address] [place] [id number] Mar, Chronic kidney disease, stag e 4 (severe) N18.4 ; Knee pain, left anterior M25.562 ; Deficiency of other specified B group vitamins E53.8 and Encounter for immunization Z23 [place] [address] [facility] [id number] [address] [place] [phone] Mar, Arthritis M19.90 [place] [address] [place] [id number] [address] [place] [id number] Feb, Labyrinthitis of left ear H8 3.02 [facility] [address] [facility] [facility] [id number] [address] [place] [id number] Feb, Arthritis M19.90 [facility] [address] [facility] [id number] [address] [place] [phone] Jan, Labyrinthitis of left ear H8 3.02 [facility] [address] [facility] [id number] [address] [place] [phone] Jan, Arthritis M19.90 [facility] [address] [id number] [address] [place] [phone] Dec, Labyrinthitis of left ear H8 3.02 [facility] [address] [facility] [id number] [address] [place] [phone] Nov, Arthritis M19.90 [place] [address] [facility] [id number] [address] [place] [phone] Nov, Labyrinthitis of left ear H8 3.02 [facility] [address] [facility] [id number] [address] [place] [phone] Nov, BMI 40.0-44.9, adult Z68.41 ; Chronic kidney disease, stage 4 (severe) N18.4 and Acute right-sided thoracic back pain M54.6 [place] [address] [place] [id number] [address] [place] [phone] October, Labyrinthitis of left ear H8 3.02 and Arthritis M19.90 [facility] [address] [facility] [id number] [address] [place] [phone] Sep, BPV (benign positional verti go), bilateral H81.13 ; Dysfunction of left eustachian tube H69.82 and BMI 40.0-44.9, adult Z68.41 [facility] [address] [facility] [id number] [address] [place] [phone] Sep, Labyrinthitis of left ear H8 3.02 and Arthritis M19.90 [facility] [address] [place] [id number] [address] [place] [phone] Sep, [facility] [address] [place] [id number] [address] [place] [phone] Sep, [facility] [address] [facility] [id number] [address] [place] [phone] Sep, Chronic kidney disease, stag e 4 (severe) N18.4 [facility] [address] [place] [id number] [address] [place] [phone] Sep, Chronic kidney disease, stag e 4 (severe) N18.4 [facility] [address] [place] [id number] [place] [address] Aug, Labyrinthitis of left ear H8 3.02 and Arthritis M19.90 [place] [address] [address] Aug, [facility] [address] [place] [id number] [address] [place] [phone] Jul, [facility] [address] [place] [id number] [place] [address] Jul, Arthritis M19.90 and Labyrin thitis of left ear H83.02 [place] [address] [place] [id number] [address] [place] [phone] Jul, [place] [address] [place] [id number] [address] [place] [id number] Jun, [place] [address] [place] [id number] [address] [place] [phone] Jun, Arthritis M19.90 and Labyrin thitis of left ear H83.02 [place] [address] [place] [id number] [place] [address] Jun, Pre-op evaluation Z01.818 ; BMI 40.0-44.9, adult Z68.41 and Encounter for immunization Z23 [place] [address] [place] [id number] [address] [place] [phone] May, Arthritis M19.90 and Labyrin thitis of left ear H83.02 [facility] [address] [place] [id number] [address] [place] [phone] Apr, Labyrinthitis of left ear H8 3.02 [facility] [address] [place] [id number] [address] [place] [phone] Apr, Arthritis M19.90 and Labyrin thitis of left ear H83.02 [place] [address] [place] [id number] [address] [place] [phone] Mar, Arthritis M19.90 and Labyrin thitis of left ear H83.02 [place] [address] [place] [id number] [address] [place] [phone] Mar, Chronic kidney disease, stag e 4 (severe) N18.4 [place] [address] [place] [id number] [address] [place] [phone] Feb, Arthritis M19.90 and Labyrin thitis of left ear H83.02 [place] [address] [place] [id number] [place] [address] Jan, Labyrinthitis of left ear H8 3.02 and Deficiency of other specified B group vitamins E53.8 [place] [address] [place] [id number] [address] [place] [id number] Dec, Arthritis M19.90 [facility] [address] [place] [id number] [address] [place] [phone] Dec, BPV (benign positional verti go), bilateral H81.13 [place] [address] [place] [id number] [address] [place] [phone] Dec, [place] [address] [place] [id number] [address] [place] [phone] Dec, [place] [address] [place] [id number] [place] [address], [place] [address] Dec, [facility] [address] [facility] [facility] [id number] [address] [place] [id number] Nov, Arthritis M19.90 and Deficie ncy of other specified B group vitamins E53.8 [facility] [address] [facility] [id number] [address] [place] [phone] Nov, Arthritis M19.90 [facility] [address] [facility] [facility] [id number] [address] [place] [phone] Nov, Hyperparathyroidism E21.3 [facility] [address] [id number] [address] [place] [phone] October, [facility] [address] [place] [id number] [address] [place] [phone] October, Hyperparathyroidism E21.3 [facility] [address] [place] [id number] [address] [place] [phone] October, [facility] [address] [facility] [id number] [address] [place] [id number] October, Renal insufficiency N28.9 an d Hyperparathyroidism E21.3 [facility] [address] [facility] [id number] [address] [place] [phone] October, [facility] [address] [facility] [id number] [address] [place] [phone] October, Renal insufficiency N28.9 an d Hyperparathyroidism E21.3 [facility] [address] [facility] [id number] [address] [place] [id number] October, Arthritis M19.90 [facility] [address] [facility] [id number] [address] [place] [phone] Sep, [facility] [address] [facility] [id number] [address] [place] [phone] Sep, Lumbar neuritis M54.16 ; Tho racic abscess J86.9 and Deficiency of other specified B group vitamins E53.8 [facility] [address] [facility] [id number] [address] [place] [phone] Sep, [facility] [address] [facility] [id number] [address] [place] [id number] Aug, Arthritis M19.90 [facility] [address] [facility] [id number] [address] [place] [phone] Aug, Hyperparathyroidism E21.3 [facility] [address] [facility] [id number] [address] [place] [phone] Aug, Hyperparathyroidism E21.3 [facility] [address] [facility] [id number] [address] [place] [phone] Aug, Arthritis M19.90 [facility] [address] [place] [id number] [address] [place] [id number] Jul, Mass of throat R22.1 [facility] [address] [place] [id number] [address] [place] [phone] 16 Jul, 2016 [facility] [address] [facility] [id number] [address] [place] [phone] Jul, Arthritis M19.90 [facility] [address] [place] [id number] [address] [place] [id number] Jun, Arthritis M19.90 [facility] [address] [id number] [address] [place] [phone] Jun, [facility] [address] [place] [id number] [address] [place] [phone] Jun, Renal insufficiency N28.9 an d Parathyroid abnormality E21.5 [facility] [address] [facility] [id number] [address] [place] [phone] 05 Jun, 2016 Medicare welcome exam Z00.00 ; Encounter for immunization Z23 ; Arthritis M19.90 ; Medicare annual wellness visit, initial Z00.00 ; Medicare annual wellness visit, subsequent Z00.00 and Deficiency of other specified B group vitamins E53.8 [facility] [address] [facility] [id number] [address] [place] [phone] 29 May, 2016 Renal insufficiency N28.9 an d Parathyroid abnormality E21.5 [facility] [address] [facility] [id number] [address] [place] [phone] 19 May, 2016 Renal insufficiency N28.9 [facility] [address] [facility] [id number] [address] [place] [phone] 16 May, 2016 Renal insufficiency N28.9 [facility] [address] [facility] [id number] [address] [place] [phone] 14 May, 2016 [facility] [address] [facility] [id number] [address] [place] [phone] 16 Apr, 2016 [facility] [address] [place] [id number] [address] [place] [id number] 16 Apr, 2016 [facility] [address] [place] [id number] [address] [place] [phone] 14 Apr, 2016 Mass of throat R22.1 [facility] [address] [facility] [id number] [address] [place] [phone] Apr, [facility] [address] [facility] [id number] [address] [place] [phone] 10 Apr, 2016 Mass of throat R22.1 [facility] [address] [facility] [id number] [address] [place] [phone] 04 Apr, 2016 Mass of throat R22.1 [facility] [address] [facility] [id number] [address] [place] [phone] Mar, [facility] [address] [facility] [id number] [address] [place] [phone] Mar, [facility] [address] [facility] [id number] [address] [place] [id number] Mar, [facility] [address] [facility] [id number] [address] [place] [id number] 24 Mar, 2016 Parathyroid abnormality E21. 5 and Encounter for immunization Z23 [facility] [address] [id number] [address] [place] [id number] 17 Mar, 2016 [facility] [address] [id number] [address] [place] [id number] Mar, [facility] [address] [id number] [address] [place] [id number] 21 Feb, 2016 Renal insufficiency N28.9 an d Hyperparathyroidism E21.3 [facility] [address] [id number] [address] [place] [id number] 19 Feb, 2016 [facility] [address] [id number] [address] [place] [id number] 15 Feb, 2016 Renal insufficiency N28.9 an d Hyperparathyroidism E21.3 [facility] [address] [id number] [address] [place] [id number] 14 Feb, 2016 [facility] [address] [id number] [address] [place] [id number] 12 Feb, 2016 [facility] [address] [id number] [address] [place] [id number] 09 Feb, 2016 [facility] [address] [id number] [address] [place] [id number] Jan, [facility] [address] [id number] [address] [place] [id number] Jan, Arthritis M19.90 ; Lumbago w ith sciatica, right side M54.41 and Other chronic pain G89.29 [facility] [address] [id number] [address] [place] [id number] Jan, [facility] [address] [id number] [address] [place] [id number] Dec, Arthritis M19.90 ; Lumbago w ith sciatica, right side M54.41 and Other chronic pain G89.29 [facility] [address] [id number] [address] [place] [id number] Nov, Deficiency of other specifie d B group vitamins E53.8 ; Primary insomnia F51.01 ; Mood disorder F39 and Lumbago with sciatica, right side M54.41 [facility] [address] [id number] Nov, Hyperparathyroidism E21.3 [facility] [address] [id number] Nov, Unspecified kidney failure N 19 and Hyperparathyroidism E21.3 [facility] [address] [id number] October, Hyperparathyroidism E21.3 [facility] [address] [id number] October, [facility] [address] [address] October, Hyperparathyroidism E21.3 [facility] [address] [id number] October, Hyperparathyroidism E21.3 [facility] [address] [id number] Sep, Hyperparathyroidism E21.3 ; Hypercholesterolemia E78.0 and Arthritis M19.90 [facility] [address] [address] Aug, [facility] [address] [id number] Aug, Deficiency of other specifie d B group vitamins E53.8 [facility] [id number] [place] [id number] Aug, [facility] [address] [id number] Jul, Urinary frequency R35.0 [facility] [address] [id number] Jul, Urinary frequency R35.0 [facility] [address] [place] [id number] [address] [place] [id number] Jul, [facility] [address] [facility] [id number] [address] [place] [id number] Jul, [facility] [address] [facility] [id number] [address] [place] [id number] Jun, Pain in left knee M25.562 [facility] [address] [id number] [address] [place] [id number] Jun, [facility] [address] [id number] [address] [place] [id number] May, Swelling of left knee joint M25.462 [facility] [address] [facility] [id number] [address] [place] [id number] May, [facility] [address] [facility] [id number] [address] [place] [id number] May, [facility] [address] [facility] [id number] [address] [place] [id number] May, [facility] [address] [facility] [id number] [address] [place] [id number] Apr, Renal insufficiency N28.9 an d Chronic kidney disease, stage 4 (severe) N18.4 [facility] [address] [facility] [id number] [address] [place] [phone] Apr, Unspecified kidney failure N 19 [facility] [address] [facility] [id number] [address] [place] [phone] Apr, Unspecified kidney failure N 19 [facility] [address] [facility] [id number] [address] [place] [id number] Apr, [facility] [address] [facility] [id number] [address] [place] [id number] Apr, Hyperparathyroidism, unspeci fied 252.00 [facility] [address] [facility] [id number] [address] [place] [id number] Apr, [facility] [address] [id number] [address] [place] [phone] Mar, [facility] [address] [id number] [address] [place] [id number] Mar, [facility] [address] [id number] [address] [place] [id number] Mar, Hyperparathyroidism, unspeci fied 252.00 [facility] [address] [id number] [address] [place] [id number] Feb, [facility] [address] [id number] [address] [place] [id number] Feb, Otalgia 388.70 [facility] [address] [id number] [address] [place] [phone] Feb, [facility] [address] [id number] [address] [place] [id number] Feb, [facility] [address] [id number] [address] [place] [id number] Jan, [facility] [address] [id number] [address] [place] [id number] Jan, Hyperparathyroidism, unspeci fied 252.00 [facility] [address] [id number] [address] [place] [id number] Jan, [facility] [address] [id number] [address] [place] [id number] Jan, Other B-complex deficiencies 266.2 and Hyperparathyroidism, unspecified 252.00 [facility] [address] [id number] [address] [place] [id number] Jan, [facility] [address] [id number] [address] [place] [id number] Jan, [facility] [address] [id number] [address] [place] [phone] Jan, [facility] [address] [id number] [address] [place] [phone] Dec, [facility] [address] [id number] [address] [place] [phone] Dec, [facility] [address] [id number] [address] [place] [id number] Dec, [facility] [address] [id number] [address] [place] [id number] Nov, Routine check-up V70.0 and P re-op exam V72.84 [facility] [address] [id number] [address] [place] [phone] Nov, [facility] [address] [id number] [address] [place] [phone] Nov, [facility] [address] [id number] [address] [place] [phone] October, [facility] [address] [id number] [address] [place] [id number] October, Other B-complex deficiencies 266.2 [facility] [address] [id number] [address] [place] [id number] October, [facility] [address] [id number] [address] [place] [id number] Sep, [facility] [address] [id number] [address] [place] [phone] Sep, [facility] [address] [id number] [address] [place] [phone] Aug, [facility] [address] [id number] [address] [place] [phone] Aug, [facility] [address] [id number] [address] [place] [phone] Aug, [facility] [address] [id number] [address] [place] [phone] Aug, [facility] [address] [id number] [address] [place] [address], [place] [address] Aug, 2014 [facility] [address] [id number] [address] [place] [address], [place] [address] Aug, 2014 [facility] [address] [id number] [address] [place] [address], [place] [address] Jul, 2014 [facility] [address] [id number] [address] [place] [address], [place] [address] Jul, 2014 [facility] [address] [id number] [address] [place] [address], [place] [address] Jul, 2014 [facility] [address] [id number] [address] [place] [address], [place] [address] Jul, 2014 [facility] [address] [id number] [address] [place] [address], [place] [address] Jul, 2014 [facility] [address] [id number] [address] [place] [address], [place] [address] Jul, 2014 [facility] [address] [id number] [address] [place] [address], [place] [address] Jul, 2014 [facility] [address] [id number] [address] [place] [address], [place] [address] Jul, 2014 [facility] [address] [id number] [address] [place] [address], [place] [address] Jul, 2014 [facility] [address] [id number] [address] [place] [address], [place] [address] Jul, 2014 [facility] [address] [id number] [address] [place] [address], [place] [address] Jul, 2014 [facility] [address] [id number] [address] [place] [address], [place] [address] Jul, 2014 [facility] [address] [id number] [address] [place] [address], [place] [address] Jul, 2014 [facility] [address] [id number] [address] [place] [address], [place] [address] Jul, [facility] [address] [id number] [address] [place] [address], [place] [address] Jun, [facility] [address] [id number] [address] [place] [address], [place] [address] Jun, [facility] [address] [id number] [address] [place] [address], [place] [address] Jun, [facility] [address] [id number] [address] [place] [address], [place] [address] Jun, [facility] [address] [id number] [address] [place] [address], [place] [address] Jun, [facility] [address] [id number] [address] [place] [address], [place] [address] Jun, [facility] [address] [id number] [address] [place] [address], [place] [address] Jun, [facility] [address] [id number] [address] [place] [address], [place] [address] Jun, [facility] [address] [id number] [address] [place] [address], [place] [address] Jun, [facility] [address] [id number] [address] [place] [address], [place] [address] Jun, [facility] [address] [id number] [address] [place] [address], [place] [address] Jun, [facility] [address] [id number] [address] [place] [address], [place] [address] Jun, [facility] [address] [id number] [address] [place] [address], [place] [address] Jun, [facility] [address] [id number] [address] [place] [address], [place] [address] Jun, [facility] [address] [id number] [address] [place] [address], [place] [address] May, [facility] [address] [id number] [address] [place] [address], [place] [address] May, [facility] [address] [id number] [address] [place] [address], [place] [address] May, [facility] [address] [id number] [address] [place] [address], [place] [address] May, [facility] [address] [id number] [address] [place] [address], [place] [address] Apr, [facility] [address] [id number] [address] [place] [address], [place] [address] Apr, [facility] [address] [id number] [address] [place] [address], [place] [address] Apr, [facility] [address] [id number] [address] [place] [address], [place] [address] Apr, [facility] [address] [id number] [address] [place] [address], [place] [address] Apr, [facility] [address] [id number] [address] [place] [address], [place] [address] Apr, [facility] [address] [id number] [address] [place] [address], [place] [address] Mar, [facility] [address] [id number] [address] [place] [address], [place] [address] Mar, [facility] [address] [id number] [address] [place] [id number] Mar, [facility] [address] [id number] [address] [place] [address], [place] [address] Mar, [facility] [address] [id number] [address] [place] [address], [place] [address] Mar, [facility] [address] [id number] [address] [place] [id number] Mar, [facility] [address] [id number] [address] [place] [id number] 13 Mar, 2013 [facility] [address] [id number] [address] [place] [address], [place] [address] 13 Mar, 2013 [facility] [address] [id number] [address] [place] [id number] 07 Mar, 2013 [facility] [address] [id number] [address] [place] [address], [place] [address] 07 Mar, 2013 [facility] [address] [id number] [address] [place] [address], [place] [address] 07 Mar, 2013 [facility] [address] [id number] [address] [place] [address], [place] [address] 07 Mar, 2014 [facility] [address] [id number] [address] [place] [address], [place] [address] 06 Mar, 2013 [facility] [address] [id number] [address] [place] [id number] 26 Sep, 2013 [facility] [address] [id number] [address] [place] [address], [place] [address] 26 Sep, 2013 [facility] [address] [id number] [address] [place] [address], [place] [address] 23 Sep, 2013 [facility] [address] [id number] [address] [place] [address], [place] [address] 23 Sep, 2013 [facility] [address] [id number] [address] [place] [address], [place] [address] 19 Sep, 2013 [facility] [address] [id number] [address] [place] [id number] 19 Sep, 2013 [facility] [address] [id number] [address] [place] [address], [place] [address] 13 Sep, 2013 [facility] [address] [id number] [address] [place] [address], [place] [address] 13 Sep, 2013 [facility] [address] [id number] [address] [place] [address], [place] [address] 12 Sep, 2013 [facility] [address] [id number] [facility] [address] Feb, [facility] [address] [id number] [facility] [address] Jan, [facility] [address] [id number] [address] [place] [address], [place] [address] Jan, [facility] [address] [id number] [address] [place] [address], [place] [address] Dec, [facility] [address] [id number] [address] [place] [address], [place] [address] Dec, [facility] [address] [id number] [address] [place] [address], [place] [address] Dec, [facility] [address] [id number] [address] [place] [address], [place] [address] Dec, [facility] [address] [id number] [address] [place] [address], [place] [address] Dec, [facility] [address] [id number] [address] [place] [address], [place] [address] Dec, [facility] [address] [id number] [address] [place] [address], [place] [address] Nov, [facility] [address] [id number] [address] [place] [address], [place] [address] Nov, [facility] [address] [id number] [address] [place] [address], [place] [address] Nov, [facility] [address] [id number] [address] [place] [address], [place] [address] Nov, [facility] [address] [id number] [address] [place] [address], [place] [address] October, [facility] [address] [id number] [address] [place] [address], [place] [address] October, [facility] [address] [id number] [address] [place] [address], [place] [address] October, [facility] [address] [id number] [facility] [address] October, [facility] [address] [id number] [address] [place] [address], [place] [address] October, [facility] [address] [id number] [address] [place] [address], [place] [address] October, [facility] [address] [id number] [address] [place] [address], [place] [address] October, [facility] [address] [id number] [address] [place] [address], [place] [address] October, [facility] [address] [id number] [address] [place] [address], [place] [address] October, [facility] [address] [id number] [address] [place] [address], [place] [address] October, [facility] [address] [id number] [address] [place] [address], [place] [address] October, [facility] [address] [id number] [address] [place] [address], [place] [address] October, [facility] [address] [id number] [address] [place] [address], [place] [address] October, [facility] [address] [id number] [address] [place] [address], [place] [address] October, [facility] [address] [id number] [address] [place] [address], [place] [address] October, [facility] [address] [id number] [address] [place] [address], [place] [address] October, [facility] [address] [id number] [address] [place] [address], [place] [address] Sep, [facility] [address] [id number] [address] [place] [address], [place] [address] Sep, [facility] [address] [id number] [facility] [address] 14 Sep, 2013 [facility] [address] [id number] [address] [place] [address], [place] [address] 14 Sep, 2013 [facility] [address] [id number] [address] [place] [address], [place] [address] Sep, [facility] [address] [id number] [address] [place] [address], [place] [address] Sep, [facility] [address] [id number] [address] [place] [address], [place] [address] Aug, [facility] [address] [id number] [address] [place] [address], [place] [address] Aug, [facility] [address] [id number] [address] [place] [address], [place] [address] Aug, [facility] [address] [id number] [address] [place] [address], [place] [address] Aug, [facility] [address] [id number] [address] [place] [address], [place] [address] Aug, [facility] [address] [id number] [address] [place] [address], [place] [address] Aug, [facility] [address] [id number] [address] [place] [address], [place] [address] Jul, [facility] [address] [id number] [address] [place] [address], [place] [address] Jul, [facility] [address] [id number] [address] [place] [address], [place] [address] Jul, [facility] [address] [id number] [address] [place] [address], [place] [address] Jul, [facility] [address] [id number] [address] [place] [address], [place] [address] Jun, [facility] [address] [id number] [address] [place] [address], [place] [address] Jun, [facility] [address] [id number] [address] [place] [address], [place] [address] May, [facility] [address] [id number] [address] [place] [address], [place] [address] May, [facility] [address] [id number] [address] [place] [address], [place] [address] May, [facility] [address] [id number] [address] [place] [address], [place] [address] May, [facility] [address] [id number] [address] [place] [address], [place] [address] May, [facility] [address] [id number] [address] [place] [address], [place] [address] Apr, [facility] [address] [id number] [address] [place] [address], [place] [address] Apr, [facility] [address] [id number] [address] [place] [id number] Apr, [facility] [address] [id number] [address] [place] [address], [place] [address] Apr, [facility] [address] [id number] [address] [place] [id number] 04 Apr, 2013 [facility] [address] [id number] [address] [place] [id number] 04 Apr, 2013 [facility] [address] [id number] [address] [place] [id number] 15 Mar, 2013 [facility] [address] [id number] [address] [place] [id number] 15 Mar, 2013 [facility] [address] [id number] [address] [place] [id number] 14 Mar, 2013 [facility] [address] [id number] [address] [place] [id number] 14 Mar, 2013 [facility] [address] [id number] [address] [place] [id number] Mar, [facility] [address] [id number] [address] [place] [address], [place] [address] Mar, [facility] [address] [id number] [address] [place] [address], [place] [address] Feb, [facility] [address] [id number] [address] [place] [address], [place] [address] Feb, [facility] [address] [id number] [address] [place] [address], [place] [address] Feb, [facility] [address] [id number] [address] [place] [address], [place] [address] Jan, [facility] [address] [id number] [address] [place] [address], [place] [address] Jan, [facility] [address] [id number] [address] [place] [address], [place] [address] Jan, [facility] [address] [id number] [address] [place] [address], [place] [address] Jan, [facility] [address] [id number] [address] [place] [address], [place] [address] Jan, [facility] [address] [id number] [address] [place] [address], [place] [address] Jan, [facility] [address] [id number] [address] [place] [address], [place] [address] Dec, [facility] [address] [id number] [address] [place] [address], [place] [address] Dec, [facility] [address] [id number] [address] [place] [address], [place] [address] Dec, [facility] [address] [id number] [address] [place] [address], [place] [address] Dec, [facility] [address] [id number] [address] [place] [address], [place] [address] Dec, [facility] [address] [id number] [address] [place] [address], [place] [address] 09 Dec, 2012 [facility] [address] [id number] [address] [place] [address], [place] [address] Nov, [facility] [address] [id number] [address] [place] [address], [place] [address] Nov, [facility] [address] [id number] [address] [place] [address], [place] [address] Nov, [facility] [address] [id number] [address] [place] [address], [place] [address] Nov, [facility] [address] [id number] [address] [place] [address], [place] [address] Nov, [facility] [address] [id number] [address] [place] [address], [place] [address] Nov, [facility] [address] [id number] [address] [place] [address], [place] [address] October, [facility] [address] [id number] [address] [place] [address], [place] [address] October, [facility] [address] [id number] [address] [place] [address], [place] [address] October, [facility] [address] [id number] [address] [place] [address], [place] [address] October, [facility] [address] [id number] [address] [place] [address], [place] [address] October, [facility] [address] [id number] [address] [place] [address], [place] [address] 30 Sep, 2012 [facility] [address] [id number] [address] [place] [address], [place] [address] Sep, [facility] [address] [id number] [address] [place] [address], [place] [address] Sep, [facility] [address] [id number] [address] [place] [address], [place] [address] Sep, [facility] [address] [id number] [address] [place] [address], [place] [address] Sep, [facility] [address] [id number] [address] [place] [address], [place] [address] Aug, [facility] [address] [id number] [address] [place] [address], [place] [address] Aug, [facility] [address] [id number] [address] [place] [address], [place] [address] Aug, [facility] [address] [id number] [address] [place] [address], [place] [address] Jul, [facility] [address] [id number] [address] [place] [address], [place] [address] 20 Jul, 2012 [facility] [address] [id number] [address] [place] [address], [place] [address] Jul, [facility] [address] [id number] [address] [place] [address], [place] [address] 08 Jul, 2012 [facility] [address] [id number] [address] [place] [address], [place] [address] 06 Jul, 2012 [facility] [address] [id number] [address] [place] [address], [place] [address] 05 Jul, 2012 [facility] [address] [id number] [address] [place] [address], [place] [address] Jun, [facility] [address] [id number] [address] [place] [address], [place] [address] Apr, [facility] [address] [id number] [address] [place] [address], [place] [address] Apr, [facility] [address] [id number] [address] [place] [address], [place] [address] Apr, [facility] [address] [id number] [address] [place] [address], [place] [address] Apr, [facility] [address] [id number] [address] [place] [address], [place] [address] Mar, [facility] [address] [id number] [address] [place] [address], [place] [address] Mar, [facility] [address] [id number] [address] [place] [address], [place] [address] Mar, [facility] [address] [id number] [address] [place] [address], [place] [address] Mar, [facility] [address] [id number] [address] [place] [address], [place] [address] Mar, [facility] [address] [id number] [address] [place] [address], [place] [address] Feb, [facility] [address] [id number] [address] [place] [address], [place] [address] Jan, [facility] [address] [id number] [address] [place] [address], [place] [address] Jan, [facility] [address] [id number] [address] [place] [address], [place] [address] Jan, [facility] [address] [id number] [address] [place] [address], [place] [address] Dec, [facility] [address] [id number] [address] [place] [address], [place] [address] Nov, [facility] [address] [id number] [address] [place] [address], [place] [address] Nov, [facility] [address] [id number] [address] [place] [address], [place] [address] Nov, [facility] [address] [id number] [address] [place] [address], [place] [address] Nov, [facility] [address] [id number] [address] [place] [address], [place] [address] Nov, [facility] [address] [id number] [address] [place] [address], [place] [address] October, [facility] [address] [facility] [id number] [address] [place] [address] October, [facility] [address] [facility] [id number] [address] [place] [address] October, [facility] [address] [facility] [id number] [address] [place] [address] October, [facility] [address] [facility] [id number] [address] [place] [address] October, IMMUNIZATIONS No Known Immunizations SOCIAL HISTORY Never Assessed REASON FOR VISIT PLAN OF CARE VITAL SIGNS Height 66 in 2013-03-21 Weight 274.06 lbs 2013-03-21 Temperature 97.2 degrees Fahrenheit 2013-03-21 Heart Rate 80 bpm 2013-03-21 Respiratory Rate 18 2013-03-21 Blood pressure systolic 150 mmHg 2013-03-21 Blood pressure diastolic 90 mmHg 2013-03-21 MEDICATIONS Unknown Medications RESULTS No Results PROCEDURES [...]
--- OUTSIDE RECORDS SUMMARY | 2020-01-25 08:14 | XMS REPORT ---
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 Name Role Phone STEPHAN CORDERO Unavailable PROBLEMS Type Condition ICD9-CM Code YSY18-NG Code Onset Dates Condition S tatus SNOMED Code Problem Corns L84 Active 641002476 Problem Primary insomnia F51.01 Active 397 2004 Problem Hyperparathyroidism E21.3 Active 97783154 Problem Hypercholesteremia E78.0 Active 1 2077256 Problem Mood disorder F39 Active 567894 05 Problem Arthritis M19.90 Active 7036919 Problem 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 Active 11521315 Problem Myalgia M79.1 Active 53315744 Problem Chronic kidney disease, stage 4 (severe) N18.4 Active 996764974 Problem Primary osteoarthritis of left knee M17.12 Active [id number] Problem Irritable bowel syndrome with both constipation and diarrh ea K58.2 Active 12200254 Problem Other chronic pain G89.29 Active 8 3619823 Problem BPV (benign positional vertigo), bilateral H81.13 Active 621058566 Problem Hyperparathyroidism, unspecified E21.3 Active 78685206 Problem Parathyroid abnormality E21.5 Active 82493121 Problem Body mass index (BMI) of 40.0-44.9 in adult Z68.41 Active 510767000 Problem Unspecified kidney failure N19 Act chip 75639371 Problem 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 Active 785609385 Problem Unspecified inflammatory spo ndylopathy, sacral and sacrococcygeal region M46.98 Active 52120880 ALLERGIES No Information ENCOUNTERS Encounter Location Date Diagnosis [facility] [address] [facility] [id number] [address] [place] [address] Dec, [facility] [address] [facility] [id number] [address] [place] [address] Nov, Hyperparathyroidism, unspeci fied E21.3 [place] [address] [place] [id number] [address] [place] [address] 16 Nov, 2019 Hyperparathyroidism, unspeci fied E21.3 [place] [address] [facility] [id number] [address] [place] [address] Nov, Chronic kidney disease, stag e 4 (severe) N18.4 ; Hyperparathyroidism, unspecified E21.3 and Left otitis media with effusion H65.92 [place] [address] [place] [id number] [address] [place] [address] Nov, Hyperparathyroidism, unspeci fied E21.3 [place] [address] [place] [id number] [address] [place] [address] October, [place] [address] [place] [id number] [place] [address] October, Hyperparathyroidism, unspeci fied E21.3 [place] [address] [place] [id number] [address] [place] [address] October, Hyperparathyroidism, unspeci fied E21.3 [place] [address] [place] [id number] [address] [place] [address] Sep, Hyperparathyroidism, unspeci fied E21.3 [place] [address] [place] [id number] [address] [place] [address] Aug, Hyperparathyroidism, unspeci fied E21.3 [place] [address] [place] [id number] [address] [place] [address] Aug, Pain in left knee M25.562 ; Other chronic pain G89.29 ; Unspecified inflammatory spondylopathy, sacral and sacrococcygeal region M46.98 ; Chronic kidney disease, stage 4 (severe) N18.4 and Hyperparathyroidism, unspecified E21.3 [place] [address] [place] [id number] [address] [place] [address] Jul, [place] [address] [place] [id number] [address] [place] [address] Jul, Arthritis M19.90 [facility] [address] [id number] [address] [place] [address] Jun, Knee pain, left M25.562 [facility] [address] [facility] [id number] [address] [place] [address] May, Arthritis M19.90 [facility] [address] [facility] [id number] [address] [place] [address] Apr, Well woman exam without gyne cological exam Z00.00 and Screening for breast cancer Z12.39 [place] [address] [facility] [id number] [address] [place] [address] Mar, Arthritis M19.90 [facility] [address] [facility] [id number] [address] [place] [address] Mar, Arthritis M19.90 [facility] [address] [facility] [id number] [address] [place] [address] Mar, [facility] [address] [facility] [id number] [address] [place] [address] Mar, Arthritis M19.90 and Encount er for immunization Z23 [facility] [address] [facility] [id number] [address] [place] [address] Feb, Arthritis M19.90 [facility] [address] [facility] [id number] [address] [place] [address] Feb, [facility] [address] [facility] [id number] [address] [place] [address] Feb, Other specified disorders of bone density and structure, unspecified site M85.80 [facility] [address] [facility] [id number] [address] [place] [address] Jan, Arthritis M19.90 [facility] [address] [facility] [id number] [address] [place] [address] Dec, Arthritis M19.90 [place] [address] [facility] [id number] [address] [place] [address] 26 Nov, 2018 Inflammatory spondylopathy o f sacral region M46.98 [facility] [address] [facility] [id number] [address] [place] [address] 21 Nov, 2018 [facility] [address] [facility] [id number] [address] [place] [address] 14 Nov, 2018 Labyrinthitis of left ear H8 3.02 [facility] [address] [facility] [id number] [address] [place] [address] 03 Nov, 2018 Arthritis M19.90 [facility] [address] [facility] [id number] [address] [place] [address] 15 Sep, 2018 Arthritis M19.90 [facility] [address] [facility] [id number] [address] [place] [address] Sep, Renal insufficiency N28.9 an d Unspecified kidney failure N19 [facility] [address] [facility] [id number] [address] [place] [address] Sep, Renal insufficiency N28.9 an d Unspecified kidney failure N19 [facility] [address] [facility] [id number] [address] [place] [address] Sep, Arthritis M19.90 [facility] [address] [facility] [id number] [address] [place] [address] Aug, Exercise counseling Z71.82 [facility] [address] [facility] [id number] [address] [place] [address] Aug, [facility] [address] [facility] [id number] [address] [place] [address] Jul, Labyrinthitis of left ear H8 3.02 [facility] [address] [facility] [id number] [address] [place] [address] 22 Jul, 2018 Labyrinthitis of left ear H8 3.02 [facility] [address] [facility] [id number] [address] [place] [address] 19 Jul, 2018 Exercise counseling Z71.[address] [place] [address] [facility] [id number] [address] [place] [address] 18 Jul, 2018 [place] [address] [place] [id number] [address] [place] [address] 14 Jul, 2018 Arthritis M19.[address] [place] [address] [facility] [id number] [address] [place] [address] 13 Jul, 2018 Encounter for Medicare annua l wellness exam Z00.00 ; Chronic kidney disease, stage 4 (severe) N18.4 ; Body mass index (BMI) of 40.0-44.9 in adult Z68.41 ; Hyperparathyroidism E21.3 and BMI 40.0-44.9, adult Z68.41 [place] [address] [place] [id number] [address] [place] [address] 13 Jul, 2018 Encounter for Medicare annua l wellness exam Z00.00 ; Chronic kidney disease, stage 4 (severe) N18.4 ; Hyperparathyroidism E21.3 ; Body mass index (BMI) of 40.0-44.9 in adult Z68.41 and Encounter for immunization Z23 [place] [address] [address] 11 Jul, 2018 Tail bone pain M53.3 [place] [address] [place] [id number] [address] [place] [address] Jun, Exercise counseling Z71.82 [place] [address] [place] [id number] [address] [place] [address] Jun, Labyrinthitis of left ear H8 3.[address] [place] [address] [facility] [id number] [address] [place] [address] Jun, Tail bone pain M53.3 ; Irrit able bowel syndrome with both constipation and diarrhea K58.2 and Dysfunction of left eustachian tube H69.82 [place] [address] [place] [id number] [address] [place] [address] Jun, Exercise counseling Z71.82 [facility] [address] [id number] [address] [place] [address] Jun, Arthritis M19.90 [facility] [address] [id number] [address] [place] [address] Jun, Irritable bowel syndrome wit h both constipation and diarrhea K58.2 ; Tail bone pain M53.3 and Dysfunction of left eustachian tube H69.82 [facility] [address] [id number] [address] [place] [address] Jun, Exercise counseling Z71.82 [place] [address] [id number] [address] [place] [address] Jun, Exercise counseling Z71.82 [facility] [address] [id number] [address] [place] [address] Jun, Labyrinthitis of left ear H8 3.02 [facility] [address] [id number] [address] [place] [address] May, Exercise counseling Z71.82 [facility] [address] [id number] [address] [place] [address] May, Arthritis M19.90 [facility] [address] [id number] [address] [place] [address] May, Exercise counseling Z71.82 [facility] [address] [id number] [address] [place] [address] May, Exercise counseling Z71.82 [facility] [address] [id number] [address] [place] [address] May, Labyrinthitis of left ear H8 3.02 [facility] [address] [id number] [address] [place] [address] May, Exercise counseling Z71.82 [facility] [address] [id number] [address] [place] [address] Apr, Arthritis M19.[address] [place] [address] [facility] [id number] [address] [place] [address] Apr, Exercise counseling Z71.[address] [place] [address] [facility] [id number] [address] [place] [address] Apr, Exercise counseling Z71.82 [place] [address] [place] [id number] [address] [place] [address] Apr, Primary osteoarthritis of le ft knee M17.12 [place] [address] [facility] [id number] [address] [place] [address] 08 Apr, 2018 Labyrinthitis of left ear H8 3.02 [place] [address] [place] [id number] [address] [place] [address] Mar, Arthritis M19.90 [place] [address] [place] [id number] [address] [place] [address] Mar, [place] [address] [place] [id number] [address] [place] [address] Mar, Chronic kidney disease, stag e 4 (severe) N18.4 [place] [address] [place] [id number] [place] [address] Mar, Chronic kidney disease, stag e 4 (severe) N18.4 [place] [address] [place] [id number] [address] [place] [address] Mar, Labyrinthitis of left ear H8 3.02 [place] [address] [place] [id number] [address] [place] [address] Mar, Chronic kidney disease, stag e 4 (severe) N18.4 ; Knee pain, left anterior M25.562 ; Deficiency of other specified B group vitamins E53.8 and Encounter for immunization Z23 [place] [address] [facility] [id number] [address] [place] [address] Mar, Arthritis M19.90 [place] [address] [place] [id number] [address] [place] [address] Feb, Labyrinthitis of left ear H8 3.02 [place] [address] [place] [id number] [address] [place] [address] Feb, Arthritis M19.90 [facility] [address] [facility] [id number] [address] [place] [address] Jan, Labyrinthitis of left ear H8 3.02 [facility] [address] [place] [id number] [address] [place] [address] Jan, Arthritis M19.[address] [place] [address] [facility] [id number] [address] [place] [address] Dec, Labyrinthitis of left ear H8 3.02 [place] [address] [place] [id number] [address] [place] [address] Nov, Arthritis M19.90 [place] [address] [place] [id number] [place] [address] Nov, Labyrinthitis of left ear H8 3.02 [place] [address] [place] [id number] [address] [place] [address] Nov, BMI 40.0-44.9, adult Z68.41 ; Chronic kidney disease, stage 4 (severe) N18.4 and Acute right-sided thoracic back pain M54.6 [place] [address] [place] [id number] [place] [address] October, Labyrinthitis of left ear H8 3.02 and Arthritis M19.90 [place] [address] [place] [id number] [address] [place] [address] Sep, BPV (benign positional verti go), bilateral H81.13 ; Dysfunction of left eustachian tube H69.82 and BMI 40.0-44.9, adult Z68.41 [place] [address] [place] [id number] [address] [place] [address] Sep, Labyrinthitis of left ear H8 3.02 and Arthritis M19.90 [facility] [address] [id number] [address] [place] [address] Sep, [facility] [address] [id number] [address] [place] [address] Sep, [facility] [address] [id number] [address] [place] [address] Sep, Chronic kidney disease, stag e 4 (severe) N18.4 [facility] [address] [id number] [address] [place] [address] Sep, Chronic kidney disease, stag e 4 (severe) N18.4 [facility] [address] [id number] [address] [place] [address] Aug, Labyrinthitis of left ear H8 3.02 and Arthritis M19.90 [facility] [address] [id number] [address] [place] [address] Aug, [facility] [address] [id number] [address] [place] [address] Jul, [facility] [address] [facility] [id number] [address] [place] [address] Jul, Arthritis M19.90 and Labyrin thitis of left ear H83.02 [facility] [address] [facility] [id number] [address] [place] [address] Jul, [facility] [address] [id number] [address] [place] [address] Jun, [facility] [address] [facility] [id number] [address] [place] [address] Jun, Arthritis M19.90 and Labyrin thitis of left ear H83.02 [facility] [address] [facility] [id number] [address] [place] [address] Jun, Pre-op evaluation Z01.818 ; BMI 40.0-44.9, adult Z68.41 and Encounter for immunization Z23 [place] [address] [address] May, Arthritis M19.90 and Labyrin thitis of left ear H83.02 [place] [address] [place] [id number] [place] [address] Apr, Labyrinthitis of left ear H8 3.02 [place] [address] [place] [id number] [place] [address] Apr, Arthritis M19.90 and Labyrin thitis of left ear H83.02 [place] [address] [address] Mar, Arthritis M19.90 and Labyrin thitis of left ear H83.02 [place] [address] [address] Mar, Chronic kidney disease, stag e 4 (severe) N18.4 [place] [address] [address] Feb, Arthritis M19.90 and Labyrin thitis of left ear H83.02 [place] [address] [place] [id number] [place] [address] Jan, Labyrinthitis of left ear H8 3.02 and Deficiency of other specified B group vitamins E53.8 [place] [address] [place] [id number] [address] [place] [address] Dec, Arthritis M19.90 [place] [address] [place] [id number] [place] [address] Dec, BPV (benign positional verti go), bilateral H81.13 [place] [address] [place] [id number] [address] [place] [address] Dec, [place] [address] [place] [id number] [place] [address] Dec, [facility] [address] [facility] [id number] [address] [place] [address] Dec, [facility] [address] [facility] [id number] [address] [place] [address] Nov, Arthritis M19.90 and Deficie ncy of other specified B group vitamins E53.8 [facility] [address] [facility] [id number] [address] [place] [address] Nov, Arthritis M19.90 [facility] [address] [facility] [id number] [address] [place] [address] Nov, Hyperparathyroidism E21.3 [facility] [address] [facility] [id number] [address] [place] [address] October, [facility] [address] [facility] [id number] [address] [place] [address] October, Hyperparathyroidism E21.3 [facility] [address] [facility] [id number] [address] [place] [address] October, [facility] [address] [facility] [id number] [address] [place] [address] October, Renal insufficiency N28.9 an d Hyperparathyroidism E21.3 [facility] [address] [facility] [id number] [address] [place] [address] October, [facility] [address] [facility] [id number] [address] [place] [address] October, Renal insufficiency N28.9 an d Hyperparathyroidism E21.3 [facility] [address] [facility] [id number] [address] [place] [address] October, Arthritis M19.90 [facility] [address] [facility] [id number] [address] [place] [address] Sep, [facility] [address] [facility] [id number] [address] [place] [address] Sep, Lumbar neuritis M54.16 ; Tho racic abscess J86.9 and Deficiency of other specified B group vitamins E53.8 [facility] [address] [id number] [address] [place] [address] Sep, [facility] [address] [facility] [id number] [address] [place] [address] Aug, Arthritis M19.90 [facility] [address] [facility] [id number] [address] [place] [address] Aug, Hyperparathyroidism E21.3 [facility] [address] [facility] [id number] [address] [place] [address] Aug, Hyperparathyroidism E21.3 [facility] [address] [facility] [id number] [address] [place] [address] Aug, Arthritis M19.90 [facility] [address] [facility] [id number] [address] [place] [id number] Jul, Mass of throat R22.1 [facility] [address] [facility] [id number] [address] [place] [id number] Jul, [facility] [address] [facility] [id number] [address] [place] [id number] Jul, Arthritis M19.90 [facility] [address] [facility] [id number] [address] [place] [phone] Jun, Arthritis M19.90 [facility] [address] [facility] [id number] [address] [place] [id number] Jun, [facility] [address] [facility] [id number] [address] [place] [phone] Jun, Renal insufficiency N28.9 an d Parathyroid abnormality E21.5 [facility] [address] [facility] [id number] [address] [place] [phone] 05 Jun, 2016 Medicare welcome exam Z00.00 ; Encounter for immunization Z23 ; Arthritis M19.90 ; Medicare annual wellness visit, initial Z00.00 ; Medicare annual wellness visit, subsequent Z00.00 and Deficiency of other specified B group vitamins E53.8 [facility] [address] [facility] [id number] [address] [place] [id number] 29 May, 2016 Renal insufficiency N28.9 an d Parathyroid abnormality E21.5 [facility] [address] [facility] [id number] [address] [place] [phone] 19 May, 2016 Renal insufficiency N28.9 [facility] [address] [place] [id number] [address] [place] [id number] 16 May, 2016 Renal insufficiency N28.9 [facility] [address] [facility] [id number] [address] [place] [phone] May, [facility] [address] [facility] [id number] [address] [place] [phone] Apr, [facility] [address] [place] [id number] [address] [place] [phone] Apr, [facility] [address] [place] [id number] [address] [place] [phone] 14 Apr, 2016 Mass of throat R22.1 [facility] [address] [facility] [id number] [address] [place] [phone] Apr, [facility] [address] [facility] [id number] [address] [place] [id number] Apr, Mass of throat R22.1 [facility] [address] [facility] [id number] [address] [place] [phone] 04 Apr, 2016 Mass of throat R22.1 [facility] [address] [facility] [id number] [address] [place] [phone] Mar, [facility] [address] [place] [id number] [address] [place] [phone] Mar, [facility] [address] [facility] [id number] [address] [place] [phone] Mar, [facility] [address] [place] [id number] [address] [place] [address] Mar, Parathyroid abnormality E21. 5 and Encounter for immunization Z23 [facility] [address] [id number] [address] [place] [address] Mar, [facility] [address] [id number] [address] [place] [address] Mar, [facility] [address] [id number] [address] [place] [address] 21 Feb, 2016 Renal insufficiency N28.9 an d Hyperparathyroidism E21.3 [facility] [address] [id number] [address] [place] [address] 19 Feb, 2016 [facility] [address] [id number] [address] [place] [address] 15 Feb, 2016 Renal insufficiency N28.9 an d Hyperparathyroidism E21.3 [facility] [address] [id number] [address] [place] [address] 14 Feb, 2016 [facility] [address] [id number] [address] [place] [address] 12 Feb, 2016 [facility] [address] [id number] [address] [place] [address] 09 Feb, 2016 [facility] [address] [id number] [address] [place] [address] Jan, [facility] [address] [id number] [address] [place] [address] Jan, Arthritis M19.90 ; Lumbago w ith sciatica, right side M54.41 and Other chronic pain G89.29 [facility] [address] [id number] [address] [place] [address] Jan, [facility] [address] [id number] [address] [place] [address] Dec, Arthritis M19.90 ; Lumbago w ith sciatica, right side M54.41 and Other chronic pain G89.29 [facility] [address] [id number] [address] [place] [address] 16 Nov, 2015 Deficiency of other specifie d B group vitamins E53.8 ; Primary insomnia F51.01 ; Mood disorder F39 and Lumbago with sciatica, right side M54.41 [facility] [address] [id number] [address] [place] [address] 13 Nov, 2015 Hyperparathyroidism E21.3 [facility] [address] [id number] [address] [place] [address] Nov, Unspecified kidney failure N 19 and Hyperparathyroidism E21.3 [place] [address] [place] [id number] [place] [address] October, Hyperparathyroidism E21.3 [place] [address] [place] [id number] [place] [address] October, [place] [address] [address] October, Hyperparathyroidism E21.3 [place] [address] [place] [id number] [place] [address] October, Hyperparathyroidism E21.3 [place] [address] [address] Sep, Hyperparathyroidism E21.3 ; Hypercholesterolemia E78.0 and Arthritis M19.90 [place] [id number] [place] [address] Aug, [place] [address] [place] [id number] [address] [place] [address] Aug, Deficiency of other specifie d B group vitamins E53.[address] [place] [address] [facility] [id number] [address] [place] [address] 07 Aug, 2015 [place] [address] [place] [id number] [address] [place] [address] Jul, Urinary frequency R35.0 [place] [address] [place] [id number] [place] [address] Jul, Urinary frequency R35.0 [facility] [address] [facility] [id number] [address] [place] [address] Jul, [facility] [address] [facility] [id number] [address] [place] [address] Jul, [facility] [address] [facility] [id number] [address] [place] [address] Jun, Pain in left knee M25.562 [facility] [address] [id number] [address] [place] [address] Jun, [facility] [address] [facility] [id number] [address] [place] [address] May, Swelling of left knee joint M25.462 [facility] [address] [facility] [id number] [address] [place] [address] May, [facility] [address] [facility] [id number] [address] [place] [address] May, [facility] [address] [facility] [id number] [address] [place] [address] May, [facility] [address] [facility] [id number] [address] [place] [address] Apr, Renal insufficiency N28.9 an d Chronic kidney disease, stage 4 (severe) N18.4 [facility] [address] [facility] [id number] [address] [place] [address] Apr, Unspecified kidney failure N 19 [facility] [address] [facility] [id number] [address] [place] [address] Apr, Unspecified kidney failure N 19 [facility] [address] [facility] [id number] [address] [place] [address] Apr, [facility] [address] [facility] [id number] [address] [place] [address] Apr, Hyperparathyroidism, unspeci fied 252.00 [facility] [address] [id number] [address] [place] [address] Apr, [facility] [address] [id number] [address] [place] [address] Mar, [facility] [address] [id number] [address] [place] [address] Mar, [facility] [address] [facility] [id number] [address] [place] [address] Mar, Hyperparathyroidism, unspeci fied 252.00 [facility] [address] [id number] [address] [place] [address] Feb, [facility] [address] [facility] [id number] [address] [place] [address] Feb, Otalgia 388.70 [facility] [address] [facility] [id number] [address] [place] [address] Feb, [facility] [address] [facility] [id number] [address] [place] [address] Feb, [facility] [address] [id number] [address] [place] [address] Jan, [facility] [address] [facility] [id number] [address] [place] [address] Jan, Hyperparathyroidism, unspeci fied 252.00 [facility] [address] [facility] [id number] [address] [place] [address] Jan, [facility] [address] 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 [id number] [address] [place] [address] Jan, [facility] [address] [facility] [id number] [address] [place] [address] Jan, [facility] [address] [id number] [address] [place] [address] Dec, [facility] [address] [id number] [address] [place] [address] Dec, [facility] [address] [id number] [address] [place] [address] Dec, [facility] [address] [id number] [address] [place] [address] Nov, Routine check-up V70.0 and P re-op exam V72.84 [facility] [address] [id number] [address] [place] [address] Nov, [facility] [address] [id number] [address] [place] [address] Nov, [facility] [address] [id number] [address] [place] [address] October, [facility] [address] [id number] [address] [place] [address] October, Other B-complex deficiencies 266.2 [facility] [address] [id number] [address] [place] [address] October, [facility] [address] [id number] [address] [place] [address] Sep, [facility] [address] [id number] [address] [place] [address] Sep, [facility] [address] [id number] [address] [place] [address] Aug, [facility] [address] [id number] [address] [place] [address] Aug, [facility] [address] [id number] [address] [place] [address] Aug, [facility] [address] [id number] [address] [place] [address], [place] [address] 17 Aug, 2014 [facility] [address] [id number] [address] [place] [address], [place] [address] Aug, 2014 [facility] [address] [id number] [address] [place] [address], [place] [address] Aug, 2014 [facility] [address] [id number] [address] [place] [address], [place] [address] 18 Jul, 2014 [facility] [address] [id number] [address] [place] [address], [place] [address] Jul, 2014 [facility] [address] [id number] [address] [place] [address], [place] [address] Jul, 2014 [facility] [address] [id number] [address] [place] [address], [place] [address] Jul, 2014 [facility] [address] [id number] [address] [place] [address], [place] [address] Jul, 2014 [facility] [address] [id number] [address] [place] [address], [place] [address] Jul, 2014 [facility] [address] [id number] [address] [place] [address], [place] [address] Jul, 2014 [facility] [address] [id number] [address] [place] [address] 10 Jul, 2014 [facility] [address] [id number] [address] [place] [address] Jul, 2014 [facility] [address] [id number] [address] [place] [address], [place] [address] Jul, 2014 [facility] [address] [id number] [address] [place] [address], [place] [address] Jul, 2014 [facility] [address] [id number] [address] [place] [address] Jul, 2014 [facility] [address] [id number] [address] [place] [address] Jul, [facility] [address] [id number] [address] [place] [address], [place] [address] Jul, [facility] [address] [id number] [address] [place] [address], [place] [address] Jun, [facility] [address] [id number] [address] [place] [address], [place] [address] Jun, [facility] [address] [id number] [address] [place] [address], [place] [address] Jun, [facility] [address] [id number] [address] [place] [address], [place] [address] Jun, [facility] [address] [id number] [address] [place] [address], [place] [address] Jun, [facility] [address] [id number] [address] [place] [address], [place] [address] Jun, [facility] [address] [id number] [address] [place] [address], [place] [address] Jun, [facility] [address] [id number] [address] [place] [address], [place] [address] Jun, [facility] [address] [id number] [address] [place] [address], [place] [address] Jun, [facility] [address] [id number] [address] [place] [address], [place] [address] Jun, [facility] [address] [id number] [address] [place] [address], [place] [address] Jun, [facility] [address] [id number] [address] [place] [address], [place] [address] Jun, [facility] [address] [id number] [address] [place] [address], [place] [address] Jun, [facility] [address] [id number] [address] [place] [address], [place] [address] Jun, [facility] [address] [id number] [address] [place] [address], [place] [address] 15 May, 2014 [facility] [address] [id number] [address] [place] [address], [place] [address] May, [facility] [address] [id number] [address] [place] [address], [place] [address] May, [facility] [address] [id number] [address] [place] [address], [place] [address] May, [facility] [address] [id number] [address] [place] [address], [place] [address] Apr, [facility] [address] [id number] [address] [place] [address], [place] [address] Apr, [facility] [address] [id number] [address] [place] [address], [place] [address] Apr, [facility] [address] [id number] [address] [place] [address], [place] [address] Apr, [facility] [address] [id number] [address] [place] [address], [place] [address] Apr, [facility] [address] [id number] [address] [place] [address], [place] [address] Apr, [facility] [address] [id number] [address] [place] [address], [place] [address] Mar, [facility] [address] [id number] [address] [place] [address], [place] [address] Mar, [facility] [address] [id number] [address] [place] [address], [place] [address] Mar, [facility] [address] [id number] [address] [place] [address], [place] [address] Mar, [facility] [address] [id number] [address] [place] [address], [place] [address] Mar, [facility] [address] [id number] [address] [place] [address], [place] [address] Mar, [facility] [address] [id number] [address] [place] [address], [place] [address] Mar, [facility] [address] [id number] [address] [place] [address], [place] [address] Mar, [facility] [address] [id number] [address] [place] [address], [place] [address] Mar, 2013 [facility] [address] [id number] [address] [place] [address], [place] [address] Mar, [facility] [address] [id number] [address] [place] [address], [place] [address] Mar, [facility] [address] [id number] [address] [place] [address], [place] [address] Mar, [facility] [address] [id number] [address] [place] [address], [place] [address] Mar, [facility] [address] [id number] [address] [place] [address], [place] [address] 26 Feb, 2013 [facility] [address] [id number] [address] [place] [address], [place] [address] 26 Feb, 2013 [facility] [address] [id number] [address] [place] [address], [place] [address] 23 Feb, 2013 [facility] [address] [id number] [address] [place] [address], [place] [address] 23 Feb, 2013 [facility] [address] [id number] [address] [place] [address] 19 Feb, 2013 [facility] [address] [id number] [address] [place] [address], [place] [address] 19 Feb, 2013 [facility] [address] [id number] [address] [place] [address], [place] [address] 13 Feb, 2013 [facility] [address] [id number] [address] [place] [address], [place] [address] 13 Feb, 2013 [facility] [address] [id number] [address] [place] [address], [place] [address] Feb, [facility] [address] [id number] [address] [place] [address], [place] [address] Feb, [facility] [address] [id number] [address] [place] [address], [place] [address] Jan, [facility] [address] [id number] [address] [place] [address], [place] [address] Jan, [facility] [address] [id number] [address] [place] [address], [place] [address] Dec, [facility] [address] [id number] [address] [place] [address], [place] [address] Dec, [facility] [address] [id number] [address] [place] [address], [place] [address] Dec, [facility] [address] [id number] [address] [place] [address], [place] [address] Dec, [facility] [address] [id number] [address] [place] [address], [place] [address] Dec, [facility] [address] [id number] [address] [place] [address], [place] [address] Dec, [facility] [address] [id number] [address] [place] [address], [place] [address] Nov, [facility] [address] [id number] [address] [place] [address], [place] [address] Nov, [facility] [address] [id number] [address] [place] [address], [place] [address] Nov, [facility] [address] [id number] [address] [place] [address], [place] [address] Nov, [facility] [address] [id number] [address] [place] [address], [place] [address] October, [facility] [address] [id number] [address] [place] [address], [place] [address] October, [facility] [address] [id number] [address] [place] [address], [place] [address] October, [facility] [address] [id number] [address] [place] [address], [place] [address] October, [facility] [address] [id number] [address] [place] [address], [place] [address] October, [facility] [address] [id number] [address] [place] [address], [place] [address] October, [facility] [address] [id number] [address] [place] [address], [place] [address] October, [facility] [address] [id number] [address] [place] [address], [place] [address] October, [facility] [address] [id number] [address] [place] [address], [place] [address] October, [facility] [address] [id number] [address] [place] [address], [place] [address] October, [facility] [address] [id number] [address] [place] [address], [place] [address] October, [facility] [address] [id number] [address] [place] [address], [place] [address] October, [facility] [address] [id number] [address] [place] [address], [place] [address] October, [facility] [address] [id number] [address] [place] [address], [place] [address] October, [facility] [address] [id number] [address] [place] [address], [place] [address] October, [facility] [address] [id number] [address] [place] [address], [place] [address] October, [facility] [address] [id number] [address] [place] [address], [place] [address] Sep, [facility] [address] [id number] [address] [place] [address], [place] [address] Sep, [facility] [address] [id number] [address] [place] [address] Sep, [facility] [address] [id number] [address] [place] [address], [place] [address] Sep, [facility] [address] [id number] [address] [place] [address] Sep, [facility] [address] [id number] [address] [place] [address], [place] [address] Sep, [facility] [address] [id number] [address] [place] [address] Aug, [facility] [address] [id number] [address] [place] [address], [place] [address] Aug, [facility] [address] [id number] [address] [place] [address], [place] [address] Aug, [facility] [address] [id number] [address] [place] [address], [place] [address] Aug, [facility] [address] [id number] [address] [place] [address], [place] [address] Aug, [facility] [address] [id number] [address] [place] [address], [place] [address] Aug, [facility] [address] [id number] [address] [place] [address], [place] [address] Jul, [facility] [address] [id number] [address] [place] [address], [place] [address] Jul, [facility] [address] [id number] [address] [place] [address], [place] [address] Jul, [facility] [address] [id number] [address] [place] [address], [place] [address] Jul, [facility] [address] [id number] [address] [place] [address], [place] [address] Jun, [facility] [address] [id number] [address] [place] [address], [place] [address] 13 Jun, 2013 [facility] [address] [id number] [address] [place] [address], [place] [address] 11 May, 2013 [facility] [address] [id number] [address] [place] [address], [place] [address] May, [facility] [address] [id number] [address] [place] [address], [place] [address] May, [facility] [address] [id number] [address] [place] [address], [place] [address] May, [facility] [address] [id number] [address] [place] [address], [place] [address] May, [facility] [address] [id number] [address] [place] [address], [place] [address] Apr, [facility] [address] [id number] [address] [place] [address], [place] [address] Apr, [facility] [address] [id number] [address] [place] [address], [place] [address] Apr, [facility] [address] [id number] [address] [place] [address], [place] [address] Apr, [facility] [address] [id number] [address] [place] [address], [place] [address] 04 Apr, 2013 [facility] [address] [id number] [address] [place] [address], [place] [address] 04 Apr, 2013 [facility] [address] [id number] [address] [place] [address], [place] [address] 15 Mar, 2013 [facility] [address] [id number] [address] [place] [address], [place] [address] 15 Mar, 2013 [facility] [address] [id number] [address] [place] [address], [place] [address] 14 Mar, 2013 [facility] [address] [id number] [address] [place] [address], [place] [address] Mar, [facility] [address] [id number] [address] [place] [address], [place] [address] Mar, [facility] [address] [id number] [address] [place] [address], [place] [address] Mar, [facility] [address] [id number] [address] [place] [address], [place] [address] Feb, [facility] [address] [id number] [address] [place] [address], [place] [address] Feb, [facility] [address] [id number] [address] [place] [address], [place] [address] Feb, [facility] [address] [id number] [address] [place] [address], [place] [address] Jan, [facility] [address] [id number] [address] [place] [address], [place] [address] Jan, [facility] [address] [id number] [address] [place] [address], [place] [address] Jan, [facility] [address] [id number] [address] [place] [address], [place] [address] Jan, [facility] [address] [id number] [address] [place] [address], [place] [address] Jan, [facility] [address] [id number] [address] [place] [address], [place] [address] Jan, [facility] [address] [id number] [address] [place] [address], [place] [address] Dec, [facility] [address] [id number] [address] [place] [address], [place] [address] Dec, [facility] [address] [id number] [address] [place] [address], [place] [address] Dec, [facility] [address] [id number] [address] [place] [address], [place] [address] Dec, [facility] [address] [id number] [address] [place] [address], [place] [address] 18 Dec, 2012 [facility] [address] [id number] [address] [place] [address], [place] [address] 09 Dec, 2012 [facility] [address] [id number] [address] [place] [address], [place] [address] Nov, [facility] [address] [id number] [address] [place] [address], [place] [address] Nov, [facility] [address] [id number] [address] [place] [address], [place] [address] Nov, [facility] [address] [id number] [address] [place] [address], [place] [address] Nov, [facility] [address] [id number] [address] [place] [address], [place] [address] Nov, [facility] [address] [id number] [address] [place] [address], [place] [address] Nov, [facility] [address] [id number] [address] [place] [address], [place] [address] October, [facility] [address] [id number] [address] [place] [address], [place] [address] October, [facility] [address] [id number] [address] [place] [address], [place] [address] October, [facility] [address] [id number] [address] [place] [address], [place] [address] October, [facility] [address] [id number] [address] [place] [address], [place] [address] October, [facility] [address] [id number] [address] [place] [address], [place] [address] Sep, [facility] [address] [id number] [address] [place] [address], [place] [address] Sep, [facility] [address] [id number] [address] [place] [address], [place] [address] Sep, [facility] [address] [id number] [address] [place] [address], [place] [address] Sep, [facility] [address] [id number] [address] [place] [address], [place] [address] Sep, [facility] [address] [id number] [address] [place] [address], [place] [address] Aug, [facility] [address] [id number] [address] [place] [address], [place] [address] Aug, [facility] [address] [id number] [address] [place] [address], [place] [address] Aug, [facility] [address] [id number] [address] [place] [address], [place] [address] Jul, [facility] [address] [id number] [address] [place] [address], [place] [address] Jul, [facility] [address] [id number] [address] [place] [address], [place] [address] Jul, [facility] [address] [id number] [address] [place] [address], [place] [address] Jul, [facility] [address] [id number] [address] [place] [address], [place] [address] 06 Jul, 2012 [facility] [address] [id number] [address] [place] [address], [place] [address] 05 Jul, 2012 [facility] [address] [id number] [address] [place] [address], [place] [address] 15 Jun, 2012 [facility] [address] [id number] [address] [place] [address], [place] [address] Apr, [facility] [address] [id number] [address] [place] [address], [place] [address] 16 Apr, 2012 [facility] [address] [id number] [address] [place] [address], [place] [address] Apr, [facility] [address] [id number] [address] [place] [address] Apr, [facility] [address] [id number] [address] [place] [address], [place] [address] Mar, [facility] [address] [id number] [address] [place] [address] Mar, [facility] [address] [id number] [address] [place] [address], [place] [address] Mar, [facility] [address] [id number] [address] [place] [address], [place] [address] Mar, [facility] [address] [id number] [address] [place] [address], [place] [address] Mar, [facility] [address] [id number] [address] [place] [address], [place] [address] Feb, [facility] [address] [id number] [address] [place] [address] Jan, [facility] [address] [id number] [address] [place] [address], [place] [address] Jan, [facility] [address] [id number] [address] [place] [address], [place] [address] Jan, [facility] [address] [id number] [address] [place] [address] Dec, [facility] [address] [id number] [address] [place] [address] Nov, [facility] [address] [id number] [address] [place] [address] Nov, [facility] [address] [id number] [address] [place] [address] Nov, [facility] [address] [id number] [address] [place] [address] Nov, [facility] [address] [id number] [address] [place] [address] Nov, [facility] [address] [facility] [id number] [address] [place] [address] October, [facility] [address] [facility] [id number] [address] [place] [address] October, [facility] [address] [facility] [id number] [address] [place] [address] October, [facility] [address] [facility] [id number] [address] [place] [address] October, [facility] [address] [facility] [id number] [address] [place] [address] October, IMMUNIZATIONS No Known Immunizations SOCIAL HISTORY Never Assessed REASON FOR VISIT PLAN OF CARE VITAL SIGNS Height 66 in 2013-04-12 Weight 271.15 lbs 2013-04-12 Temperature 97.8 degrees Fahrenheit 2013-04-12 Heart Rate 76 bpm 2013-04-12 Respiratory Rate 16 2013-04-12 Blood pressure systolic 128 mmHg 2013-04-12 Blood pressure diastolic 82 mmHg 2013-04-12 MEDICATIONS Unknown Medications RESULTS No Results PROCEDURES Procedure Date Ordered Result Body Site INJ VIT B-12 CYNOCOBLMN TO 1000 MCG Apr 12, 2013 INSTRUCTIONS MEDICATIONS ADMINISTERED No Known Medications [...]
--- OUTSIDE RECORDS SUMMARY | 2020-01-25 08:14 | XMS REPORT ---
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 Name Role Phone STEPHAN CORDERO Unavailable PROBLEMS Type Condition ICD9-CM Code [id number] Code Onset Dates Condition S tatus SNOMED Code Problem Corns L84 Active 106029014 Problem Primary insomnia F51.01 Active 397 2004 Problem Hyperparathyroidism E21.3 Active 42077972 Problem Hypercholesteremia E78.0 Active 1 4427990 Problem Mood disorder F39 Active 960087 05 Problem Arthritis M19.90 Active 6746357 Problem 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 Active 43277929 Problem Myalgia M79.1 Active 90491116 Problem Chronic kidney disease, stage 4 (severe) N18.4 Active 762992864 Problem Primary osteoarthritis of left knee M17.12 Active [id number] Problem Irritable bowel syndrome with both constipation and diarrh ea K58.2 Active 23278969 Problem Other chronic pain G89.29 Active 8 3495534 Problem BPV (benign positional vertigo), bilateral H81.13 Active 140948430 Problem Hyperparathyroidism, unspecified E21.3 Active 26588747 Problem 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 Active 96221176 Problem Body mass index (BMI) of 40.0-44.9 in adult Z68.41 Active 178120534 Problem Unspecified kidney failure N19 Act chip 07814563 Problem 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 Active 519785342 Problem Unspecified inflammatory spo ndylopathy, sacral and sacrococcygeal region M46.98 Active [id number] ALLERGIES No Information ENCOUNTERS Encounter Location Date Diagnosis [facility] [address] [facility] [id number] [address] [place] [id number] Nov, Hyperparathyroidism, unspeci fied E21.3 [facility] [address] [facility] [id number] [address] [place] [address] Nov, Chronic kidney disease, stag e 4 (severe) N18.4 ; Hyperparathyroidism, unspecified E21.3 and Left otitis media with effusion H65.92 [place] [address] [facility] [id number] [address] [place] [address] Nov, Hyperparathyroidism, unspeci fied E21.3 [place] [address] [facility] [id number] [address] [place] [address] October, [place] [address] [facility] [id number] [address] [place] [id number] October, Hyperparathyroidism, unspeci fied E21.3 [place] [address] [place] [id number] [address] [place] [address] October, Hyperparathyroidism, unspeci fied E21.3 [place] [address] [place] [id number] [address] [place] [phone] Sep, Hyperparathyroidism, unspeci fied E21.3 [place] [address] [facility] [id number] [address] [place] [id number] Aug, Hyperparathyroidism, unspeci fied E21.3 [place] [address] [place] [id number] [address] [place] [address] Aug, Pain in left knee M25.562 ; Other chronic pain G89.29 ; Unspecified inflammatory spondylopathy, sacral and sacrococcygeal region M46.98 ; Chronic kidney disease, stage 4 (severe) N18.4 and Hyperparathyroidism, unspecified E21.3 [place] [address] [facility] [id number] [address] [place] [address] Jul, [place] [address] [place] [id number] [address] [place] [address] Jul, Arthritis M19.90 [place] [address] [facility] [id number] [address] [place] [address] Jun, Knee pain, left M25.562 [place] [address] [place] [id number] [address] [place] [address] May, Arthritis M19.90 [facility] [address] [facility] [id number] [address] [place] [address] Apr, Well woman exam without gyne cological exam Z00.00 and Screening for breast cancer Z12.39 [facility] [address] [facility] [id number] [address] [place] [address] Mar, Arthritis M19.90 [facility] [address] [facility] [id number] [address] [place] [address] Mar, Arthritis M19.90 [facility] [address] [place] [id number] [address] [place] [address] Mar, [facility] [address] [place] [id number] [address] [place] [phone] Mar, Arthritis M19.90 and Encount er for immunization Z23 [facility] [address] [facility] [id number] [address] [place] [id number] Feb, Arthritis M19.90 [facility] [address] [facility] [id number] [address] [place] [address] Feb, [facility] [address] [place] [id number] [address] [place] [address] Feb, Other specified disorders of bone density and structure, unspecified site M85.80 [facility] [address] [facility] [id number] [address] [place] [address] Jan, Arthritis M19.90 [facility] [address] [facility] [id number] [address] [place] [address] Dec, Arthritis M19.90 [facility] [address] [facility] [id number] [address] [place] [id number] Nov, Inflammatory spondylopathy o f sacral region M46.98 [facility] [address] [place] [id number] [address] [place] [address] Nov, [facility] [address] [facility] [id number] [address] [place] [id number] Nov, Labyrinthitis of left ear H8 3.02 [facility] [address] [facility] [id number] [address] [place] [id number] 03 Nov, 2018 Arthritis M19.90 [facility] [address] [facility] [id number] [address] [place] [id number] 15 Sep, 2018 Arthritis M19.90 [facility] [address] [facility] [id number] [address] [place] [address] Sep, Renal insufficiency N28.9 an d Unspecified kidney failure N19 [facility] [address] [facility] [id number] [address] [place] [address] Sep, Renal insufficiency N28.9 an d Unspecified kidney failure N19 [facility] [address] [facility] [id number] [address] [place] [address] Sep, Arthritis M19.90 [facility] [address] [facility] [id number] [address] [place] [address] Aug, Exercise counseling Z71.82 [facility] [address] [facility] [id number] [address] [place] [address] Aug, [facility] [address] [facility] [id number] [address] [place] [address] Jul, Labyrinthitis of left ear H8 3.02 [facility] [address] [facility] [id number] [address] [place] [address] Jul, Labyrinthitis of left ear H8 3.02 [facility] [address] [facility] [id number] [address] [place] [address] Jul, Exercise counseling Z71.82 [facility] [address] [facility] [id number] [address] [place] [address] Jul, [facility] [address] [facility] [id number] [address] [place] [id number] 14 Jul, 2018 Arthritis M19.90 [place] [id number] [facility] [id number] [address] [place] [address] 13 Jul, 2018 Encounter for Medicare annua l wellness exam Z00.00 ; Chronic kidney disease, stage 4 (severe) N18.4 ; Body mass index (BMI) of 40.0-44.9 in adult Z68.41 ; Hyperparathyroidism E21.3 and BMI 40.0-44.9, adult Z68.41 [place] [address] [facility] [id number] [address] [place] [id number] 13 Jul, 2018 Encounter for Medicare annua l wellness exam Z00.00 ; Chronic kidney disease, stage 4 (severe) N18.4 ; Hyperparathyroidism E21.3 ; Body mass index (BMI) of 40.0-44.9 in adult Z68.41 and Encounter for immunization Z23 [place] [address] [place] [id number] [address] [place] [id number] 11 Jul, 2018 Tail bone pain M53.3 [place] [address] [place] [id number] [address] [place] [address] 29 Jun, 2018 Exercise counseling Z71.82 [place] [address] [place] [id number] [place] [address] Jun, Labyrinthitis of left ear H8 3.02 [place] [address] [place] [id number] [address] [place] [phone] Jun, Tail bone pain M53.3 ; Irrit able bowel syndrome with both constipation and diarrhea K58.2 and Dysfunction of left eustachian tube H69.82 [place] [address] [facility] [id number] [address] [place] [address] Jun, Exercise counseling Z71.82 [place] [address] [place] [id number] [address] [place] [address] Jun, Arthritis M19.90 [place] [address] [place] [id number] [address] [place] [address] Jun, Irritable bowel syndrome wit h both constipation and diarrhea K58.2 ; Tail bone pain M53.3 and Dysfunction of left eustachian tube H69.82 [facility] [address] [id number] [address] [place] [address] Jun, Exercise counseling Z71.82 [facility] [address] [id number] [address] [place] [address] Jun, Exercise counseling Z71.82 [facility] [address] [id number] [address] [place] [address] Jun, Labyrinthitis of left ear H8 3.02 [place] [address] [id number] [address] [place] [address] May, Exercise counseling Z71.82 [place] [address] [id number] [address] [place] [address] May, Arthritis M19.90 [facility] [address] [id number] [address] [place] [address] May, Exercise counseling Z71.82 [facility] [address] [id number] [address] [place] [address] May, Exercise counseling Z71.82 [facility] [address] [id number] [address] [place] [address] May, Labyrinthitis of left ear H8 3.02 [facility] [address] [id number] [address] [place] [address] May, Exercise counseling Z71.82 [facility] [address] [id number] [address] [place] [address] Apr, Arthritis M19.90 [facility] [address] [id number] [address] [place] [address] Apr, Exercise counseling Z71.82 [facility] [address] [id number] [address] [place] [address] Apr, Exercise counseling Z71.82 [place] [address] [address] Apr, Primary osteoarthritis of le ft knee M17.12 [place] [address] [address] Apr, Labyrinthitis of left ear H8 3.02 [place] [address] [address] Mar, Arthritis M19.90 [place] [address] [address] Mar, [place] [address] [address] Mar, Chronic kidney disease, stag e 4 (severe) N18.4 [place] [address] [address] Mar, Chronic kidney disease, stag e 4 (severe) N18.4 [place] [address] [address] Mar, Labyrinthitis of left ear H8 3.02 [place] [address] [address] 05 Mar, 2018 Chronic kidney disease, stag e 4 (severe) N18.4 ; Knee pain, left anterior M25.562 ; Deficiency of other specified B group vitamins E53.8 and Encounter for immunization Z23 [place] [address] [place] [id number] [address] [place] [address] Mar, Arthritis M19.90 [place] [address] [address] Feb, Labyrinthitis of left ear H8 3.02 [place] [address] [address] 06 Feb, 2018 Arthritis M19.90 [place] [address] [place] [id number] [address] [place] [address] Jan, Labyrinthitis of left ear H8 3.02 [facility] [address] [facility] [id number] [address] [place] [address] Jan, Arthritis M19.90 [facility] [address] [facility] [id number] [address] [place] [address] Dec, Labyrinthitis of left ear H8 3.02 [facility] [address] [facility] [id number] [address] [place] [address] Nov, Arthritis M19.90 [place] [address] [place] [id number] [address] [place] [address] Nov, Labyrinthitis of left ear H8 3.02 [place] [address] [place] [id number] [address] [place] [address] Nov, BMI 40.0-44.9, adult Z68.41 ; Chronic kidney disease, stage 4 (severe) N18.4 and Acute right-sided thoracic back pain M54.6 [place] [address] [place] [id number] [address] [place] [address] October, Labyrinthitis of left ear H8 3.02 and Arthritis M19.90 [place] [address] [place] [id number] [address] [place] [address] Sep, BPV (benign positional verti go), bilateral H81.13 ; Dysfunction of left eustachian tube H69.82 and BMI 40.0-44.9, adult Z68.41 [place] [address] [facility] [id number] [address] [place] [address] Sep, Labyrinthitis of left ear H8 3.02 and Arthritis M19.90 [place] [id number] [facility] [id number] [address] [place] [address] Sep, [place] [address] [place] [id number] [address] [place] [address] Sep, [facility] [address] [id number] [address] [place] [address] Sep, Chronic kidney disease, stag e 4 (severe) N18.4 [facility] [address] [id number] [address] [place] [address] Sep, Chronic kidney disease, stag e 4 (severe) N18.4 [facility] [address] [id number] [address] [place] [address] Aug, Labyrinthitis of left ear H8 3.02 and Arthritis M19.90 [facility] [address] [id number] [address] [place] [address] Aug, [facility] [address] [id number] [address] [place] [address] Jul, [facility] [address] [facility] [id number] [address] [place] [address] Jul, Arthritis M19.90 and Labyrin thitis of left ear H83.02 [facility] [address] [id number] [address] [place] [id number] Jul, [facility] [address] [id number] [address] [place] [address] Jun, [facility] [address] [id number] [address] [place] [address] Jun, Arthritis M19.90 and Labyrin thitis of left ear H83.02 [facility] [address] [facility] [id number] [address] [place] [address] Jun, Pre-op evaluation Z01.818 ; BMI 40.0-44.9, adult Z68.41 and Encounter for immunization Z23 [facility] [address] [facility] [id number] [address] [place] [address] May, Arthritis M19.90 and Labyrin thitis of left ear H83.02 [facility] [address] [place] [id number] [address] [place] [address] Apr, Labyrinthitis of left ear H8 3.02 [place] [address] [place] [id number] [address] [place] [address] Apr, Arthritis M19.90 and Labyrin thitis of left ear H83.02 [place] [address] [place] [id number] [address] [place] [address] Mar, Arthritis M19.90 and Labyrin thitis of left ear H83.02 [place] [address] [place] [id number] [address] [place] [address] Mar, Chronic kidney disease, stag e 4 (severe) N18.4 [place] [address] [place] [id number] [address] [place] [address] Feb, Arthritis M19.90 and Labyrin thitis of left ear H83.02 [place] [address] [place] [id number] [place] [address] Jan, Labyrinthitis of left ear H8 3.02 and Deficiency of other specified B group vitamins E53.8 [place] [address] [place] [id number] [address] [place] [address] Dec, Arthritis M19.90 [place] [address] [place] [id number] [address] [place] [address] Dec, BPV (benign positional verti go), bilateral H81.13 [place] [address] [place] [id number] [address] [place] [address] Dec, [place] [address] [place] [id number] [address] [place] [address] Dec, [place] [address] [place] [id number] [address] [place] [address] Dec, [place] [address] [place] [id number] [address] [place] [address] Nov, Arthritis M19.90 and Deficie ncy of other specified B group vitamins E53.8 [facility] [address] [id number] [address] [place] [address] Nov, Arthritis M19.90 [facility] [address] [id number] [address] [place] [address] Nov, Hyperparathyroidism E21.3 [facility] [address] [facility] [id number] [address] [place] [address] October, [facility] [address] [id number] [address] [place] [address] October, Hyperparathyroidism E21.3 [facility] [address] [facility] [id number] [address] [place] [address] October, [facility] [address] [facility] [id number] [address] [place] [address] October, Renal insufficiency N28.9 an d Hyperparathyroidism E21.3 [facility] [address] [facility] [id number] [address] [place] [address] October, [facility] [address] [facility] [id number] [address] [place] [address] October, Renal insufficiency N28.9 an d Hyperparathyroidism E21.3 [facility] [address] [facility] [id number] [address] [place] [address] October, Arthritis M19.90 [facility] [address] [facility] [id number] [address] [place] [address] Sep, [facility] [address] [facility] [id number] [address] [place] [address] Sep, Lumbar neuritis M54.16 ; Tho racic abscess J86.9 and Deficiency of other specified B group vitamins E53.8 [facility] [address] [id number] [address] [place] [id number] Sep, [facility] [address] [facility] [id number] [address] [place] [address] Aug, Arthritis M19.90 [facility] [address] [facility] [id number] [address] [place] [address] Aug, Hyperparathyroidism E21.3 [facility] [address] [facility] [id number] [address] [place] [address] Aug, Hyperparathyroidism E21.3 [facility] [address] [facility] [id number] [address] [place] [address] Aug, Arthritis M19.90 [facility] [address] [facility] [id number] [address] [place] [address] Jul, Mass of throat R22.1 [facility] [address] [place] [id number] [address] [place] [address] Jul, [facility] [address] [address] Jul, Arthritis M19.90 [facility] [address] [place] [id number] [address] [place] [address] Jun, Arthritis M19.90 [facility] [address] [place] [id number] [address] [place] [address] Jun, [facility] [id number] [place] [address] Jun, Renal insufficiency N28.9 an d Parathyroid abnormality E21.5 [facility] [address] [facility] [id number] [address] [place] [id number] 05 Jun, 2016 Medicare welcome exam Z00.00 ; Encounter for immunization Z23 ; Arthritis M19.90 ; Medicare annual wellness visit, initial Z00.00 ; Medicare annual wellness visit, subsequent Z00.00 and Deficiency of other specified B group vitamins E53.8 [facility] [address] [facility] [id number] [address] [place] [address] May, Renal insufficiency N28.9 an d Parathyroid abnormality E21.5 [facility] [address] [facility] [id number] [address] [place] [id number] 19 May, 2016 Renal insufficiency N28.9 [facility] [address] [facility] [id number] [address] [place] [id number] 16 May, 2016 Renal insufficiency N28.9 [facility] [address] [facility] [id number] [address] [place] [id number] 14 May, 2016 [facility] [address] [facility] [id number] [address] [place] [id number] 16 Apr, 2016 [facility] [address] [facility] [id number] [address] [place] [id number] 16 Apr, 2016 [facility] [address] [facility] [id number] [address] [place] [id number] 14 Apr, 2016 Mass of throat R22.1 [facility] [address] [facility] [id number] [address] [place] [phone] 10 Apr, 2016 [facility] [address] [facility] [id number] [address] [place] [phone] 10 Apr, 2016 Mass of throat R22.1 [facility] [address] [facility] [id number] [address] [place] [id number] 04 Apr, 2016 Mass of throat R22.1 [facility] [address] [facility] [id number] [address] [place] [phone] 31 Mar, 2016 [facility] [address] [facility] [id number] [address] [place] [phone] Mar, [facility] [address] [facility] [id number] [address] [place] [phone] Mar, [facility] [address] [facility] [id number] [address] [place] [id number] 24 Mar, 2016 Parathyroid abnormality E21. 5 and Encounter for immunization Z23 [facility] [address] [facility] [id number] [address] [place] [id number] 17 Mar, 2016 [facility] [address] [facility] [id number] [address] [place] [phone] Mar, [facility] [address] [id number] [address] [place] [id number] 21 Feb, 2016 Renal insufficiency N28.9 an d Hyperparathyroidism E21.3 [facility] [address] [id number] [address] [place] [id number] 19 Feb, 2016 [facility] [address] [id number] [address] [place] [id number] 15 Feb, 2016 Renal insufficiency N28.9 an d Hyperparathyroidism E21.3 [facility] [address] [id number] [address] [place] [id number] 14 Feb, 2016 [facility] [address] [id number] [address] [place] [id number] 12 Feb, 2016 [facility] [address] [facility] [id number] [address] [place] [phone] Feb, [facility] [address] [facility] [id number] [address] [place] [id number] Jan, [facility] [address] [facility] [id number] [address] [place] [id number] Jan, Arthritis M19.90 ; Lumbago w ith sciatica, right side M54.41 and Other chronic pain G89.29 [facility] [address] [facility] [id number] [address] [place] [id number] Jan, [facility] [address] [facility] [id number] [address] [place] [id number] Dec, Arthritis M19.90 ; Lumbago w ith sciatica, right side M54.41 and Other chronic pain G89.29 [facility] [address] [facility] [id number] [address] [place] [id number] Nov, Deficiency of other specifie d B group vitamins E53.8 ; Primary insomnia F51.01 ; Mood disorder F39 and Lumbago with sciatica, right side M54.41 [facility] [address] [facility] [id number] [address] [place] [id number] Nov, Hyperparathyroidism E21.3 [facility] [address] [facility] [id number] [address] [place] [phone] Nov, Unspecified kidney failure N 19 and Hyperparathyroidism E21.3 [facility] [address] [facility] [id number] [address] [place] [address] October, Hyperparathyroidism E21.3 [facility] [address] [id number] October, [facility] [address] [address] October, Hyperparathyroidism E21.3 [facility] [address] [address] October, Hyperparathyroidism E21.3 [facility] [address] [address] Sep, Hyperparathyroidism E21.3 ; Hypercholesterolemia E78.0 and Arthritis M19.90 [facility] [address] [id number] Aug, [facility] [address] [address] Aug, Deficiency of other specifie d B group vitamins E53.8 [facility] [address] [place] [id number] [address] [place] [address] Aug, [facility] [address] [address] Jul, Urinary frequency R35.0 [facility] [address] [id number] Jul, Urinary frequency R35.0 [facility] [address] [place] [id number] [address] [place] [id number] Jul, [facility] [address] [id number] Jul, [facility] [address] [id number] [address] [place] [id number] Jun, Pain in left knee M25.562 [facility] [address] [id number] [address] [place] [id number] Jun, [facility] [address] [id number] [address] [place] [id number] May, Swelling of left knee joint M25.462 [facility] [address] [id number] [address] [place] [id number] May, [facility] [address] [id number] [address] [place] [id number] May, [facility] [address] [facility] [id number] [address] [place] [id number] May, [facility] [address] [facility] [id number] [address] [place] [id number] Apr, Renal insufficiency N28.9 an d Chronic kidney disease, stage 4 (severe) N18.4 [facility] [address] [facility] [id number] [address] [place] [id number] Apr, Unspecified kidney failure N 19 [facility] [address] [facility] [id number] [address] [place] [id number] Apr, Unspecified kidney failure N 19 [facility] [address] [facility] [id number] [address] [place] [id number] Apr, [facility] [address] [facility] [id number] [address] [place] [id number] Apr, Hyperparathyroidism, unspeci fied 252.00 [facility] [address] [facility] [id number] [address] [place] [id number] Apr, [facility] [address] [facility] [id number] [address] [place] [id number] Mar, [facility] [address] [facility] [id number] [address] [place] [id number] Mar, [facility] [address] [id number] [address] [place] [id number] Mar, Hyperparathyroidism, unspeci fied 252.00 [facility] [address] [id number] [address] [place] [id number] Feb, [facility] [address] [facility] [id number] [address] [place] [id number] Feb, Otalgia 388.70 [facility] [address] [facility] [id number] [address] [place] [id number] Feb, [facility] [address] [facility] [id number] [address] [place] [id number] Feb, [facility] [address] [facility] [id number] [address] [place] [id number] Jan, [facility] [address] [facility] [id number] [address] [place] [id number] Jan, Hyperparathyroidism, unspeci fied 252.00 [facility] [address] [id number] [address] [place] [id number] Jan, [facility] [address] [facility] [id number] [address] [place] [id number] Jan, Other B-complex deficiencies 266.2 and Hyperparathyroidism, unspecified 252.00 [facility] [address] [facility] [id number] [address] [place] [id number] Jan, [facility] [address] [facility] [id number] [address] [place] [id number] Jan, [facility] [address] [facility] [id number] [address] [place] [id number] Jan, [facility] [address] [facility] [id number] [address] [place] [id number] Dec, [facility] [address] [facility] [id number] [address] [place] [id number] Dec, [facility] [address] [id number] [address] [place] [id number] Dec, [facility] [address] [id number] [address] [place] [id number] Nov, Routine check-up V70.0 and P re-op exam V72.84 [facility] [address] [id number] [address] [place] [id number] Nov, [facility] [address] [id number] [address] [place] [id number] Nov, [facility] [address] [id number] [address] [place] [id number] October, [facility] [address] [id number] [address] [place] [id number] October, Other B-complex deficiencies 266.2 [facility] [address] [id number] [address] [place] [id number] October, [facility] [address] [id number] [address] [place] [id number] Sep, [facility] [address] [id number] [address] [place] [id number] Sep, [facility] [address] [id number] [address] [place] [id number] Aug, [facility] [address] [id number] [address] [place] [id number] Aug, [facility] [address] [id number] [address] [place] [id number] Aug, [facility] [address] [id number] [address] [place] [id number] 17 Aug, 2014 [facility] [address] [id number] [address] [place] [phone] Aug, [facility] [address] [id number] [address] [place] [id number] Aug, [facility] [address] [id number] [address] [place] [address], [place] [address] Jul, 2014 [facility] [address] [id number] [address] [place] [address], [place] [address] Jul, 2014 [facility] [address] [id number] [address] [place] [address], [place] [address] Jul, 2014 [facility] [address] [id number] [address] [place] [address], [place] [address] Jul, 2014 [facility] [address] [id number] [address] [place] [address], [place] [address] Jul, 2014 [facility] [address] [id number] [address] [place] [address], [place] [address] Jul, 2014 [facility] [address] [id number] [address] [place] [address], [place] [address] Jul, 2014 [facility] [address] [id number] [address] [place] [address], [place] [address] Jul, 2014 [facility] [address] [id number] [address] [place] [address], [place] [address] Jul, 2014 [facility] [address] [id number] [address] [place] [address], [place] [address] Jul, 2014 [facility] [address] [id number] [address] [place] [address], [place] [address] Jul, 2014 [facility] [address] [id number] [address] [place] [address], [place] [address] Jul, 2014 [facility] [address] [id number] [address] [place] [address], [place] [address] Jul, 2014 [facility] [address] [id number] [address] [place] [address], [place] [address] Jul, 2014 [facility] [address] [id number] [address] [place] [address], [place] [address] Jun, [facility] [address] [id number] [address] [place] [address], [place] [address] Jun, [facility] [address] [id number] [address] [place] [address], [place] [address] Jun, [facility] [address] [id number] [address] [place] [address], [place] [address] Jun, [facility] [address] [id number] [address] [place] [address], [place] [address] Jun, [facility] [address] [id number] [address] [place] [address], [place] [address] Jun, [facility] [address] [id number] [address] [place] [address], [place] [address] Jun, [facility] [address] [id number] [address] [place] [address], [place] [address] Jun, [facility] [address] [id number] [address] [place] [address], [place] [address] Jun, [facility] [address] [id number] [address] [place] [address], [place] [address] Jun, [facility] [address] [id number] [address] [place] [address], [place] [address] Jun, [facility] [address] [id number] [address] [place] [address], [place] [address] Jun, [facility] [address] [id number] [address] [place] [id number] Jun, [facility] [address] [id number] [address] [place] [address], [place] [address] Jun, [facility] [address] [id number] [address] [place] [address], [place] [address] May, [facility] [address] [id number] [address] [place] [address], [place] [address] May, [facility] [address] [id number] [address] [place] [id number] May, [facility] [address] [id number] [address] [place] [address], [place] [address] May, [facility] [address] [id number] [address] [place] [address], [place] [address] Apr, [facility] [address] [id number] [address] [place] [address], [place] [address] Apr, [facility] [address] [id number] [address] [place] [address], [place] [address] Apr, [facility] [address] [id number] [address] [place] [address], [place] [address] Apr, [facility] [address] [id number] [address] [place] [address], [place] [address] Apr, [facility] [address] [id number] [address] [place] [address], [place] [address] Apr, [facility] [address] [id number] [address] [place] [address], [place] [address] Mar, [facility] [address] [id number] [address] [place] [address], [place] [address] Mar, [facility] [address] [id number] [address] [place] [address], [place] [address] Mar, [facility] [address] [id number] [address] [place] [address], [place] [address] Mar, [facility] [address] [id number] [address] [place] [id number] 15 Mar, 2014 [facility] [address] [id number] [address] [place] [address], [place] [address] 15 Mar, 2014 [facility] [address] [id number] [address] [place] [id number] Mar, [facility] [address] [id number] [address] [place] [id number] Mar, [facility] [address] [id number] [address] [place] [address], [place] [address] 07 Mar, 2013 [facility] [address] [id number] [address] [place] [address], [place] [address] 07 Mar, 2013 [facility] [address] [id number] [address] [place] [address], [place] [address] 07 Mar, 2013 [facility] [address] [id number] [address] [place] [address], [place] [address] 07 Mar, 2013 [facility] [address] [id number] [address] [place] [address], [place] [address] 06 Mar, 2013 [facility] [address] [id number] [address] [place] [address], [place] [address] 26 Feb, 2013 [facility] [address] [id number] [address] [place] [address], [place] [address] 26 Feb, 2013 [facility] [address] [id number] [address] [place] [address], [place] [address] 23 Feb, 2013 [facility] [address] [id number] [address] [place] [address], [place] [address] 23 Feb, 2013 [facility] [address] [id number] [address] [place] [address], [place] [address] 19 Feb, 2013 [facility] [address] [id number] [address] [place] [address], [place] [address] 19 Feb, 2013 [facility] [address] [id number] [address] [place] [address], [place] [address] 13 Feb, 2013 [facility] [address] [id number] [address] [place] [address], [place] [address] 13 Feb, 2013 [facility] [address] [id number] [address] [place] [address], [place] [address] 12 Feb, 2013 [facility] [address] [id number] [address] [place] [address], [place] [address] 12 Feb, 2013 [facility] [address] [id number] [address] [place] [address], [place] [address] Jan, [facility] [address] [id number] [facility] [place] [address] Jan, [facility] [address] [id number] [facility] [place] [address] Dec, [facility] [address] [id number] [facility] [place] [address] Dec, [facility] [address] [id number] [address] [place] [address], [place] [address] Dec, [facility] [address] [id number] [address] [place] [address], [place] [address] Dec, [facility] [address] [id number] [address] [place] [address], [place] [address] Dec, [facility] [address] [id number] [address] [place] [address], [place] [address] Dec, [facility] [address] [id number] [address] [place] [address], [place] [address] Nov, [facility] [address] [id number] [address] [place] [address], [place] [address] Nov, [facility] [address] [id number] [address] [place] [address], [place] [address] Nov, [facility] [address] [id number] [address] [place] [address], [place] [address] Nov, [facility] [address] [id number] [address] [place] [address], [place] [address] October, [facility] [address] [id number] [address] [place] [address], [place] [address] October, [facility] [address] [id number] [address] [place] [address], [place] [address] October, [facility] [address] [id number] [address] [place] [address], [place] [address] October, [facility] [address] [id number] [address] [place] [address], [place] [address] October, [facility] [address] [id number] [address] [place] [address], [place] [address] October, [facility] [address] [id number] [address] [place] [address], [place] [address] October, [facility] [address] [id number] [address] [place] [address], [place] [address] October, [facility] [address] [id number] [address] [place] [address], [place] [address] October, [facility] [address] [id number] [address] [place] [address], [place] [address] October, [facility] [address] [id number] [address] [place] [address], [place] [address] October, [facility] [address] [id number] [address] [place] [address], [place] [address] October, [facility] [address] [id number] [address] [place] [address], [place] [address] October, [facility] [address] [id number] [address] [place] [address], [place] [address] October, [facility] [address] [id number] [address] [place] [address], [place] [address] October, [facility] [address] [id number] [address] [place] [address], [place] [address] October, [facility] [address] [id number] [address] [place] [address], [place] [address] Sep, [facility] [address] [id number] [address] [place] [address], [place] [address] Sep, [facility] [address] [id number] [address] [place] [address], [place] [address] Sep, [facility] [address] [id number] [address] [place] [address], [place] [address] Sep, [facility] [address] [id number] [address] [place] [address], [place] [address] Sep, [facility] [address] [id number] [address] [place] [address], [place] [address] Sep, [facility] [address] [id number] [address] [place] [address], [place] [address] Aug, [facility] [address] [id number] [address] [place] [address], [place] [address] Aug, [facility] [address] [id number] [address] [place] [address], [place] [address] Aug, [facility] [address] [id number] [address] [place] [address], [place] [address] Aug, [facility] [address] [id number] [address] [place] [address], [place] [address] Aug, [facility] [address] [id number] [address] [place] [address], [place] [address] Aug, [facility] [address] [id number] [address] [place] [address], [place] [address] Jul, [facility] [address] [id number] [address] [place] [address], [place] [address] Jul, [facility] [address] [id number] [address] [place] [address], [place] [address] Jul, [facility] [address] [id number] [address] [place] [address], [place] [address] Jul, [facility] [address] [id number] [address] [place] [address], [place] [address] Jun, [facility] [address] [id number] [address] [place] [address], [place] [address] Jun, [facility] [address] [id number] [address] [place] [address], [place] [address] May, [facility] [address] [id number] [address] [place] [id number] 11 May, 2013 [facility] [address] [id number] [address] [place] [address], [place] [address] 10 May, 2013 [facility] [address] [id number] [address] [place] [id number] May, [facility] [address] [id number] [address] [place] [address] May, [facility] [address] [id number] [address] [place] [id number] Apr, [facility] [address] [id number] [address] [place] [id number] Apr, [facility] [address] [id number] [address] [place] [id number] Apr, [facility] [address] [id number] [address] [place] [id number] Apr, [facility] [address] [id number] [address] [place] [id number] Apr, [facility] [address] [id number] [address] [place] [id number] 04 Apr, 2013 [facility] [address] [id number] [address] [place] [id number] 15 Mar, 2013 [facility] [address] [id number] [address] [place] [id number] 15 Mar, 2013 [facility] [address] [id number] [address] [place] [id number] 14 Mar, 2013 [facility] [address] [id number] [address] [place] [id number] 14 Mar, 2013 [facility] [address] [id number] [address] [place] [id number] 11 Mar, 2013 [facility] [address] [id number] [address] [place] [id number] 11 Mar, 2013 [facility] [address] [id number] [facility] [place] [address] Feb, [facility] [address] [id number] [address] [place] [address], [place] [address] Feb, [facility] [address] [id number] [address] [place] [address], [place] [address] Feb, [facility] [address] [id number] [address] [place] [address], [place] [address] Jan, [facility] [address] [id number] [address] [place] [address], [place] [address] Jan, [facility] [address] [id number] [address] [place] [address], [place] [address] Jan, [facility] [address] [id number] [address] [place] [address], [place] [address] Jan, [facility] [address] [id number] [address] [place] [address], [place] [address] Jan, [facility] [address] [id number] [address] [place] [address], [place] [address] Jan, [facility] [address] [id number] [address] [place] [address], [place] [address] Dec, [facility] [address] [id number] [address] [place] [address], [place] [address] Dec, [facility] [address] [id number] [address] [place] [address], [place] [address] Dec, [facility] [address] [id number] [address] [place] [address], [place] [address] Dec, [facility] [address] [id number] [address] [place] [address], [place] [address] Dec, [facility] [address] [id number] [address] [place] [address], [place] [address] Dec, [facility] [address] [id number] [address] [place] [address], [place] [address] 26 Nov, 2012 [facility] [address] [id number] [address] [place] [address], [place] [address] 19 Nov, 2012 [facility] [address] [id number] [address] [place] [address], [place] [address] 18 Nov, 2012 [facility] [address] [id number] [address] [place] [address], [place] [address] 13 Nov, 2012 [facility] [address] [id number] [address] [place] [address], [place] [address] Nov, [facility] [address] [id number] [address] [place] [address], [place] [address] Nov, [facility] [address] [id number] [address] [place] [address], [place] [address] October, [facility] [address] [id number] [address] [place] [address], [place] [address] October, [facility] [address] [id number] [address] [place] [address], [place] [address] October, [facility] [address] [id number] [address] [place] [address], [place] [address] October, [facility] [address] [id number] [address] [place] [address], [place] [address] October, [facility] [address] [id number] [address] [place] [address], [place] [address] 30 Sep, 2012 [facility] [address] [id number] [address] [place] [address], [place] [address] Sep, [facility] [address] [id number] [address] [place] [address], [place] [address] Sep, [facility] [address] [id number] [address] [place] [address], [place] [address] 18 Sep, 2012 [facility] [address] [id number] [address] [place] [address], [place] [address] Sep, [facility] [address] [id number] [address] [place] [address], [place] [address] 26 Aug, 2012 [facility] [address] [id number] [address] [place] [address], [place] [address] 07 Aug, 2012 [facility] [address] [id number] [address] [place] [address], [place] [address] 04 Aug, 2012 [facility] [address] [id number] [address] [place] [address], [place] [address] 21 Jul, 2012 [facility] [address] [id number] [address] [place] [address], [place] [address] 20 Jul, 2012 [facility] [address] [id number] [address] [place] [address], [place] [address] 11 Jul, 2012 [facility] [address] [id number] [address] [place] [address], [place] [address] 08 Jul, 2012 [facility] [address] [id number] [address] [place] [address], [place] [address] 06 Jul, 2012 [facility] [address] [id number] [address] [place] [address], [place] [address] 05 Jul, 2012 [facility] [address] [id number] [address] [place] [address], [place] [address] 15 Jun, 2012 [facility] [address] [id number] [address] [place] [address], [place] [address] 16 Apr, 2012 [facility] [address] [id number] [address] [place] [address], [place] [address] 16 Apr, 2012 [facility] [address] [id number] [address] [place] [address], [place] [address] Apr, [facility] [address] [id number] [address] [place] [address], [place] [address] Apr, [facility] [address] [id number] [address] [place] [address], [place] [address] Mar, [facility] [address] [id number] [address] [place] [address], [place] [address] Mar, [facility] [address] [id number] [address] [place] [address], [place] [address] Mar, [facility] [address] [id number] [address] [place] [address], [place] [address] Mar, [facility] [address] [id number] [address] [place] [address], [place] [address] Mar, [facility] [address] [id number] [address] [place] [address], [place] [address] Feb, [facility] [address] [id number] [address] [place] [address], [place] [address] Jan, [facility] [address] [id number] [address] [place] [address], [place] [address] Jan, [facility] [address] [id number] [address] [place] [address], [place] [address] Jan, [facility] [address] [id number] [address] [place] [address], [place] [address] Dec, [facility] [address] [id number] [address] [place] [address], [place] [address] Nov, [facility] [address] [id number] [address] [place] [address], [place] [address] Nov, [facility] [address] [id number] [address] [place] [address], [place] [address] Nov, [facility] [address] [id number] [address] [place] [address] Nov, [facility] [address] [id number] [address] [place] [address], [place] [address] Nov, [facility] [address] [id number] [address] [place] [address], [place] [address] October, [facility] [address] [id number] [address] [place] [address], [place] [address] October, [facility] [address] [id number] [address] [place] [address] October, [facility] [address] [facility] [id number] [address] [place] [address] October, [facility] [address] [facility] [id number] [address] [place] [address] October, IMMUNIZATIONS No Known Immunizations SOCIAL HISTORY Never Assessed REASON FOR VISIT PLAN OF CARE VITAL SIGNS MEDICATIONS Unknown Medications RESULTS No Results PROCEDURES Procedure Date Ordered Result Body Site BASIC METABOLIC PANEL Feb 07, 2013 VENIPUNCT, ROUTINE* Feb 07, 2013 INSTRUCTIONS MEDICATIONS ADMINISTERED No Known [...]
--- OUTSIDE RECORDS SUMMARY | 2020-01-25 08:14 | XMS REPORT ---
Author Author Velma CORDERO Organization [facility] Address [address] [place] [address] Care Team Providers Care [employer] Client [employer] Analyst Name Role Phone SETPHAN CORDERO Unavailable PROBLEMS Type Condition ICD9-CM Code VTV41-NU Code Onset Dates Condition S tatus SNOMED Code Problem Corns L84 Active 860055098 Problem Primary insomnia F51.01 Active 397 2004 Problem Hyperparathyroidism E21.3 Active 17285317 Problem Hypercholesteremia E78.0 Active 1 8259424 Problem Mood disorder F39 Active 480236 05 Problem Arthritis M19.90 Active 7216128 Problem 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 Active 65931401 Problem Myalgia M79.1 Active 65591537 Problem Chronic kidney disease, stage 4 (severe) N18.4 Active 428721159 Problem Primary osteoarthritis of left knee M17.12 Active [id number] Problem Irritable bowel syndrome with both constipation and diarrh ea K58.2 Active 39362852 Problem Other chronic pain G89.29 Active 8 9642805 Problem BPV (benign positional vertigo), bilateral H81.13 Active 909104207 Problem Hyperparathyroidism, unspecified E21.3 Active 33627022 Problem 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 Active 22363031 Problem Body mass index (BMI) of 40.0-44.9 in adult Z68.41 Active 127420924 Problem Unspecified kidney failure N19 Act chip 83919203 Problem 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 Active 922651970 Problem Unspecified inflammatory spo ndylopathy, sacral and sacrococcygeal region M46.98 Active 07537058 ALLERGIES No Information ENCOUNTERS Encounter Location Date Diagnosis [facility] [address] [facility] [id number] [address] [place] [address] Nov, Hyperparathyroidism, unspeci fied E21.3 [facility] [address] [facility] [id number] [address] [place] [phone] 16 Nov, 2019 Hyperparathyroidism, unspeci fied E21.3 [place] [address] [facility] [id number] [address] [place] [address] Nov, Chronic kidney disease, stag e 4 (severe) N18.4 ; Hyperparathyroidism, unspecified E21.3 and Left otitis media with effusion H65.92 [place] [address] [facility] [id number] [address] [place] [address] Nov, Hyperparathyroidism, unspeci fied E21.3 [place] [address] [facility] [id number] [address] [place] [address] October, [place] [address] [place] [id number] [address] [place] [address] October, Hyperparathyroidism, unspeci fied E21.3 [place] [address] [place] [id number] [address] [place] [phone] October, Hyperparathyroidism, unspeci fied E21.3 [place] [address] [facility] [id number] [address] [place] [address] Sep, Hyperparathyroidism, unspeci fied E21.3 [place] [address] [place] [id number] [address] [place] [id number] Aug, Hyperparathyroidism, unspeci fied E21.3 [place] [address] [place] [id number] [address] [place] [address] Aug, Pain in left knee M25.562 ; Other chronic pain G89.29 ; Unspecified inflammatory spondylopathy, sacral and sacrococcygeal region M46.98 ; Chronic kidney disease, stage 4 (severe) N18.4 and Hyperparathyroidism, unspecified E21.3 [place] [address] [facility] [id number] [address] [place] [address] Jul, [place] [address] [facility] [id number] [address] [place] [id number] 06 Jul, 2019 Arthritis M19.90 [place] [address] [place] [id number] [address] [place] [address] Jun, Knee pain, left M25.562 [facility] [address] [id number] [address] [place] [address] May, Arthritis M19.90 [facility] [address] [id number] [address] [place] [address] Apr, Well woman exam without gyne cological exam Z00.00 and Screening for breast cancer Z12.39 [facility] [address] [id number] [address] [place] [address] Mar, Arthritis M19.90 [facility] [address] [facility] [id number] [address] [place] [address] Mar, Arthritis M19.90 [facility] [address] [facility] [id number] [address] [place] [id number] Mar, [facility] [address] [facility] [id number] [address] [place] [address] Mar, Arthritis M19.90 and Encount er for immunization Z23 [facility] [address] [facility] [id number] [address] [place] [address] Feb, Arthritis M19.90 [facility] [address] [facility] [id number] [address] [place] [phone] Feb, [facility] [address] [facility] [id number] [address] [place] [phone] Feb, Other specified disorders of bone density and structure, unspecified site M85.80 [facility] [address] [id number] [address] [place] [address] Jan, Arthritis M19.90 [facility] [address] [facility] [id number] [address] [place] [address] Dec, Arthritis M19.90 [facility] [address] [facility] [id number] [address] [place] [address] Nov, Inflammatory spondylopathy o f sacral region M46.98 [facility] [address] [id number] [address] [place] [address] Nov, [facility] [address] [id number] [address] [place] [id number] 14 Nov, 2018 Labyrinthitis of left ear H8 3.02 [facility] [address] [id number] [address] [place] [address] 03 Nov, 2018 Arthritis M19.90 [facility] [address] [id number] [address] [place] [address] 15 Sep, 2018 Arthritis M19.90 [facility] [address] [id number] [address] [place] [id number] 08 Sep, 2018 Renal insufficiency N28.9 an d Unspecified kidney failure N19 [facility] [address] [id number] [address] [place] [address] Sep, Renal insufficiency N28.9 an d Unspecified kidney failure N19 [facility] [address] [id number] [address] [place] [address] Sep, Arthritis M19.90 [facility] [address] [facility] [id number] [address] [place] [address] Aug, Exercise counseling Z71.82 [facility] [address] [facility] [id number] [address] [place] [address] Aug, [facility] [address] [id number] [address] [place] [address] Jul, Labyrinthitis of left ear H8 3.02 [facility] [address] [id number] [address] [place] [address] Jul, Labyrinthitis of left ear H8 3.02 [facility] [address] [id number] [address] [place] [address] Jul, Exercise counseling Z71.82 [facility] [address] [id number] [address] [place] [address] 18 Jul, 2018 [place] [id number] [facility] [id number] [address] [place] [address] 14 Jul, 2018 Arthritis M19.90 [place] [address] [facility] [id number] [address] [place] [address] 13 Jul, 2018 Encounter for Medicare annua l wellness exam Z00.00 ; Chronic kidney disease, stage 4 (severe) N18.4 ; Body mass index (BMI) of 40.0-44.9 in adult Z68.41 ; Hyperparathyroidism E21.3 and BMI 40.0-44.9, adult Z68.41 [place] [address] [facility] [id number] [address] [place] [address] 13 Jul, 2018 Encounter for Medicare annua l wellness exam Z00.00 ; Chronic kidney disease, stage 4 (severe) N18.4 ; Hyperparathyroidism E21.3 ; Body mass index (BMI) of 40.0-44.9 in adult Z68.41 and Encounter for immunization Z23 [place] [address] [facility] [id number] [address] [place] [address] 11 Jul, 2018 Tail bone pain M53.3 [place] [address] [facility] [id number] [address] [place] [address] Jun, Exercise counseling Z71.82 [place] [address] [facility] [id number] [address] [place] [address] Jun, Labyrinthitis of left ear H8 3.02 [place] [address] [facility] [id number] [address] [place] [address] Jun, Tail bone pain M53.3 ; Irrit able bowel syndrome with both constipation and diarrhea K58.2 and Dysfunction of left eustachian tube H69.82 [place] [address] [facility] [id number] [address] [place] [address] Jun, Exercise counseling Z71.82 [place] [address] [facility] [id number] [address] [place] [id number] Jun, Arthritis M19.90 [facility] [address] [id number] [address] [place] [address] Jun, Irritable bowel syndrome wit h both constipation and diarrhea K58.2 ; Tail bone pain M53.3 and Dysfunction of left eustachian tube H69.82 [facility] [address] [id number] [address] [place] [address] Jun, Exercise counseling Z71.82 [facility] [address] [id number] [address] [place] [address] Jun, Exercise counseling Z71.82 [place] [address] [id number] [address] [place] [address] Jun, Labyrinthitis of left ear H8 3.02 [facility] [address] [id number] [address] [place] [address] May, Exercise counseling Z71.82 [facility] [address] [id number] [address] [place] [address] May, Arthritis M19.90 [facility] [address] [id number] [address] [place] [address] May, Exercise counseling Z71.82 [facility] [address] [id number] [address] [place] [address] May, Exercise counseling Z71.82 [facility] [address] [id number] [address] [place] [address] May, Labyrinthitis of left ear H8 3.02 [facility] [address] [id number] [address] [place] [address] May, Exercise counseling Z71.82 [facility] [address] [id number] [address] [place] [address] Apr, Arthritis M19.90 [facility] [address] [id number] [address] [place] [address] Apr, Exercise counseling Z71.82 [facility] [id number] [place] [address] Apr, Exercise counseling Z71.82 [facility] [address] [place] [id number] [address] [place] [address] Apr, Primary osteoarthritis of le ft knee M17.12 [place] [address] [address] Apr, Labyrinthitis of left ear H8 3.02 [place] [address] [place] [id number] [place] [address] Mar, Arthritis M19.90 [place] [address] [address] Mar, [place] [address] [address] Mar, Chronic kidney disease, stag e 4 (severe) N18.4 [place] [address] [address] Mar, Chronic kidney disease, stag e 4 (severe) N18.4 [place] [address] [place] [id number] [place] [address] Mar, Labyrinthitis of left ear H8 3.02 [place] [address] [address] Mar, Chronic kidney disease, stag e 4 (severe) N18.4 ; Knee pain, left anterior M25.562 ; Deficiency of other specified B group vitamins E53.8 and Encounter for immunization Z23 [place] [address] [place] [id number] [address] [place] [address] Mar, Arthritis M19.90 [place] [address] [place] [id number] [address] [place] [address] Feb, Labyrinthitis of left ear H8 3.02 [place] [address] [facility] [id number] [address] [place] [address] Feb, Arthritis M19.90 [facility] [address] [facility] [id number] [address] [place] [address] Jan, Labyrinthitis of left ear H8 3.02 [facility] [address] [facility] [id number] [address] [place] [address] Jan, Arthritis M19.90 [place] [address] [facility] [id number] [address] [place] [address] Dec, Labyrinthitis of left ear H8 3.02 [place] [address] [facility] [id number] [address] [place] [address] Nov, Arthritis M19.90 [place] [address] [facility] [id number] [address] [place] [address] Nov, Labyrinthitis of left ear H8 3.02 [place] [address] [facility] [id number] [address] [place] [address] Nov, BMI 40.0-44.9, adult Z68.41 ; Chronic kidney disease, stage 4 (severe) N18.4 and Acute right-sided thoracic back pain M54.6 [place] [address] [facility] [id number] [address] [place] [address] October, Labyrinthitis of left ear H8 3.02 and Arthritis M19.90 [place] [address] [place] [id number] [address] [place] [address] Sep, BPV (benign positional verti go), bilateral H81.13 ; Dysfunction of left eustachian tube H69.82 and BMI 40.0-44.9, adult Z68.41 [facility] [address] [facility] [id number] [address] [place] [address] Sep, Labyrinthitis of left ear H8 3.02 and Arthritis M19.90 [place] [address] [place] [id number] [address] [place] [address] Sep, [facility] [address] [place] [id number] [address] [place] [address] Sep, [facility] [address] [place] [id number] [place] [address] Sep, Chronic kidney disease, stag e 4 (severe) N18.4 [facility] [address] [place] [id number] [place] [address] Sep, Chronic kidney disease, stag e 4 (severe) N18.4 [facility] [address] [place] [id number] [place] [address] Aug, Labyrinthitis of left ear H8 3.02 and Arthritis M19.90 [place] [address] [address] Aug, [facility] [address] [address] Jul, [facility] [address] [address] Jul, Arthritis M19.90 and Labyrin thitis of left ear H83.02 [facility] [address] [address] Jul, [facility] [address] [address] Jun, [facility] [address] [address] Jun, Arthritis M19.90 and Labyrin thitis of left ear H83.02 [place] [address] [address] 09 Jun, 2017 Pre-op evaluation Z01.818 ; BMI 40.0-44.9, adult Z68.41 and Encounter for immunization Z23 [facility] [address] [place] [address] May, Arthritis M19.90 and Labyrin thitis of left ear H83.02 [place] [address] [place] [id number] [place] [address] Apr, Labyrinthitis of left ear H8 3.02 [facility] [address] [place] [id number] [place] [address] Apr, Arthritis M19.90 and Labyrin thitis of left ear H83.02 [place] [address] [place] [id number] [place] [address] Mar, Arthritis M19.90 and Labyrin thitis of left ear H83.02 [place] [address] [place] [id number] [place] [address] 05 Mar, 2017 Chronic kidney disease, stag e 4 (severe) N18.4 [place] [address] [address] Feb, Arthritis M19.90 and Labyrin thitis of left ear H83.02 [place] [address] [address] Jan, Labyrinthitis of left ear H8 3.02 and Deficiency of other specified B group vitamins E53.8 [place] [address] [address] Dec, Arthritis M19.90 [place] [address] [place] [id number] [place] [address] Dec, BPV (benign positional verti go), bilateral H81.13 [place] [address] [place] [id number] [place] [address] Dec, [place] [address] [place] [id number] [address] [place] [address] Dec, [place] [address] [address] Dec, [facility] [address] [facility] [id number] [address] [place] [address] Nov, Arthritis M19.90 and Deficie ncy of other specified B group vitamins E53.8 [facility] [address] [facility] [id number] [address] [place] [address] Nov, Arthritis M19.90 [facility] [address] [facility] [id number] [address] [place] [address] Nov, Hyperparathyroidism E21.3 [facility] [address] [facility] [id number] [address] [place] [address] October, [facility] [address] [facility] [id number] [address] [place] [address] October, Hyperparathyroidism E21.3 [facility] [address] [facility] [id number] [address] [place] [address] October, [facility] [address] [facility] [id number] [address] [place] [address] October, Renal insufficiency N28.9 an d Hyperparathyroidism E21.3 [facility] [address] [facility] [id number] [address] [place] [address] October, [facility] [address] [facility] [id number] [address] [place] [address] October, Renal insufficiency N28.9 an d Hyperparathyroidism E21.3 [facility] [address] [facility] [id number] [address] [place] [address] October, Arthritis M19.90 [facility] [address] [facility] [id number] [address] [place] [address] Sep, [facility] [address] [facility] [id number] [address] [place] [address] Sep, Lumbar neuritis M54.16 ; Tho racic abscess J86.9 and Deficiency of other specified B group vitamins E53.8 [facility] [address] [facility] [id number] [address] [place] [address] Sep, [facility] [address] [facility] [id number] [address] [place] [address] Aug, Arthritis M19.90 [facility] [address] [facility] [id number] [address] [place] [address] Aug, Hyperparathyroidism E21.3 [facility] [address] [place] [id number] [address] [place] [address] Aug, Hyperparathyroidism E21.3 [facility] [address] [place] [id number] [address] [place] [address] Aug, Arthritis M19.90 [facility] [address] [address] Jul, Mass of throat R22.1 [facility] [address] [address] Jul, [facility] [address] [place] [id number] [address] [place] [address] Jul, Arthritis M19.90 [facility] [address] [address] Jun, Arthritis M19.90 [facility] [address] [place] [id number] [address] [place] [address] Jun, [facility] [address] [place] [id number] [address] [place] [address] Jun, Renal insufficiency N28.9 an d Parathyroid abnormality E21.5 [facility] [address] [facility] [id number] [address] [place] [address] 05 Jun, 2016 Medicare welcome exam Z00.00 ; Encounter for immunization Z23 ; Arthritis M19.90 ; Medicare annual wellness visit, initial Z00.00 ; Medicare annual wellness visit, subsequent Z00.00 and Deficiency of other specified B group vitamins E53.8 [facility] [address] [place] [id number] [address] [place] [address] 29 May, 2016 Renal insufficiency N28.9 an d Parathyroid abnormality E21.5 [facility] [address] [facility] [id number] [address] [place] [address] May, Renal insufficiency N28.9 [facility] [address] [facility] [id number] [address] [place] [address] 16 May, 2016 Renal insufficiency N28.9 [facility] [address] [facility] [id number] [address] [place] [address] 14 May, 2016 [facility] [address] [facility] [id number] [address] [place] [address] Apr, [facility] [address] [facility] [id number] [address] [place] [address] 16 Apr, 2016 [facility] [address] [facility] [id number] [address] [place] [phone] 14 Apr, 2016 Mass of throat R22.1 [facility] [address] [facility] [id number] [address] [place] [address] 10 Apr, 2016 [facility] [address] [facility] [id number] [address] [place] [address] 10 Apr, 2016 Mass of throat R22.1 [facility] [address] [facility] [id number] [address] [place] [address] 04 Apr, 2016 Mass of throat R22.1 [facility] [address] [facility] [id number] [address] [place] [address] Mar, [facility] [address] [facility] [id number] [address] [place] [phone] Mar, [facility] [address] [facility] [id number] [address] [place] [address] Mar, [facility] [address] [facility] [id number] [address] [place] [address] 24 Mar, 2016 Parathyroid abnormality E21. 5 and Encounter for immunization Z23 [facility] [address] [id number] [address] [place] [phone] 17 Mar, 2016 [facility] [address] [id number] [address] [place] [address] Mar, [facility] [address] [facility] [id number] [address] [place] [address] 21 Feb, 2016 Renal insufficiency N28.9 an d Hyperparathyroidism E21.3 [facility] [address] [facility] [id number] [address] [place] [phone] 19 Feb, 2016 [facility] [address] [id number] [address] [place] [phone] 15 Feb, 2016 Renal insufficiency N28.9 an d Hyperparathyroidism E21.3 [facility] [address] [facility] [id number] [address] [place] [id number] 14 Feb, 2016 [facility] [address] [facility] [id number] [address] [place] [phone] 12 Feb, 2016 [facility] [address] [facility] [id number] [address] [place] [id number] 09 Feb, 2016 [facility] [address] [facility] [id number] [address] [place] [id number] Jan, [facility] [address] [facility] [id number] [address] [place] [id number] Jan, Arthritis M19.90 ; Lumbago w ith sciatica, right side M54.41 and Other chronic pain G89.29 [facility] [address] [facility] [id number] [address] [place] [phone] Jan, [facility] [address] [facility] [id number] [address] [place] [id number] Dec, Arthritis M19.90 ; Lumbago w ith sciatica, right side M54.41 and Other chronic pain G89.29 [facility] [address] [facility] [id number] [address] [place] [phone] Nov, Deficiency of other specifie d B group vitamins E53.8 ; Primary insomnia F51.01 ; Mood disorder F39 and Lumbago with sciatica, right side M54.41 [facility] [address] [id number] 13 Nov, 2015 Hyperparathyroidism E21.3 [facility] [address] [place] [id number] [address] [place] [id number] Nov, Unspecified kidney failure N 19 and Hyperparathyroidism E21.3 [facility] [address] [id number] October, Hyperparathyroidism E21.3 [facility] [address] [id number] October, [facility] [address] [id number] October, Hyperparathyroidism E21.3 [facility] [address] [address] [address] October, Hyperparathyroidism E21.3 [facility] [address] [address] Sep, Hyperparathyroidism E21.3 ; Hypercholesterolemia E78.0 and Arthritis M19.90 [facility] [address] [address] Aug, [facility] [address] [address] Aug, Deficiency of other specifie d B group vitamins E53.8 [facility] [address] [place] [id number] [address] [place] [address] Aug, [facility] [address] [address] Jul, Urinary frequency R35.0 [facility] [address] [address] Jul, Urinary frequency R35.0 [facility] [address] [address] Jul, [facility] [address] [id number] [address] [place] [address] Jul, [facility] [address] [facility] [id number] [address] [place] [address] Jun, Pain in left knee M25.562 [facility] [address] [id number] [address] [place] [address] Jun, [facility] [address] [id number] [address] [place] [address] May, Swelling of left knee joint M25.462 [facility] [address] [id number] [address] [place] [address] May, [facility] [address] [facility] [id number] [address] [place] [address] May, [facility] [address] [facility] [id number] [address] [place] [address] May, [facility] [address] [facility] [id number] [address] [place] [address] Apr, Renal insufficiency N28.9 an d Chronic kidney disease, stage 4 (severe) N18.4 [facility] [address] [facility] [id number] [address] [place] [address] Apr, Unspecified kidney failure N 19 [facility] [address] [facility] [id number] [address] [place] [address] Apr, Unspecified kidney failure N 19 [facility] [address] [facility] [id number] [address] [place] [address] Apr, [facility] [address] [facility] [id number] [address] [place] [address] Apr, Hyperparathyroidism, unspeci fied 252.00 [facility] [address] [facility] [id number] [address] [place] [address] Apr, [facility] [address] [id number] [address] [place] [address] Mar, [facility] [address] [id number] [address] [place] [address] Mar, [facility] [address] [id number] [address] [place] [address] Mar, Hyperparathyroidism, unspeci fied 252.00 [facility] [address] [id number] [address] [place] [address] Feb, [facility] [address] [id number] [address] [place] [address] Feb, Otalgia 388.70 [facility] [address] [id number] [address] [place] [address] Feb, [facility] [address] [id number] [address] [place] [address] Feb, [facility] [address] [id number] [address] [place] [address] Jan, [facility] [address] [id number] [address] [place] [address] Jan, Hyperparathyroidism, unspeci fied 252.00 [facility] [address] [id number] [address] [place] [address] Jan, [facility] [address] [id number] [address] [place] [address] Jan, Other B-complex deficiencies 266.2 and Hyperparathyroidism, unspecified 252.00 [facility] [address] [id number] [address] [place] [address] Jan, [facility] [address] [id number] [address] [place] [address] Jan, [facility] [address] [facility] [id number] [address] [place] [address] Jan, [facility] [address] [id number] [address] [place] [address] Dec, [facility] [address] [id number] [address] [place] [address] Dec, [facility] [address] [id number] [address] [place] [address] Dec, [facility] [address] [id number] [address] [place] [address] Nov, Routine check-up V70.0 and P re-op exam V72.84 [facility] [address] [id number] [address] [place] [address] Nov, [facility] [address] [id number] [address] [place] [address] Nov, [facility] [address] [id number] [address] [place] [address] October, [facility] [address] [id number] [address] [place] [address] October, Other B-complex deficiencies 266.2 [facility] [address] [id number] [address] [place] [address] October, [facility] [address] [id number] [address] [place] [address] Sep, [facility] [address] [id number] [address] [place] [address] Sep, [facility] [address] [id number] [address] [place] [address] Aug, [facility] [address] [id number] [address] [place] [address] Aug, [facility] [address] [id number] [address] [place] [address] Aug, [facility] [address] [id number] [address] [place] [address] Aug, [facility] [address] [id number] [address] [place] [address], [place] [address] 11 Aug, 2014 [facility] [address] [id number] [address] [place] [address], [place] [address] Aug, 2014 [facility] [address] [id number] [address] [place] [address], [place] [address] Jul, 2014 [facility] [address] [id number] [address] [place] [address], [place] [address] Jul, 2014 [facility] [address] [id number] [address] [place] [address], [place] [address] Jul, 2014 [facility] [address] [id number] [address] [place] [address], [place] [address] Jul, 2014 [facility] [address] [id number] [address] [place] [address], [place] [address] Jul, 2014 [facility] [address] [id number] [address] [place] [address], [place] [address] Jul, 2014 [facility] [address] [id number] [address] [place] [address], [place] [address] Jul, 2014 [facility] [address] [id number] [address] [place] [address], [place] [address] Jul, 2014 [facility] [address] [id number] [address] [place] [address] Jul, 2014 [facility] [address] [id number] [address] [place] [address] Jul, 2014 [facility] [address] [id number] [address] [place] [address], [place] [address] Jul, 2014 [facility] [address] [id number] [address] [place] [address], [place] [address] Jul, 2014 [facility] [address] [id number] [address] [place] [address] 02 Jul, 2014 [facility] [address] [id number] [address] [place] [address] Jul, [facility] [address] [id number] [address] [place] [address], [place] [address] Jun, [facility] [address] [id number] [address] [place] [address], [place] [address] Jun, [facility] [address] [id number] [address] [place] [address], [place] [address] Jun, [facility] [address] [id number] [address] [place] [address], [place] [address] Jun, [facility] [address] [id number] [address] [place] [address], [place] [address] Jun, [facility] [address] [id number] [address] [place] [address], [place] [address] Jun, [facility] [address] [id number] [address] [place] [address], [place] [address] Jun, [facility] [address] [id number] [address] [place] [address], [place] [address] Jun, [facility] [address] [id number] [address] [place] [address], [place] [address] Jun, [facility] [address] [id number] [address] [place] [address], [place] [address] Jun, [facility] [address] [id number] [address] [place] [address], [place] [address] Jun, [facility] [address] [id number] [address] [place] [address], [place] [address] Jun, [facility] [address] [id number] [address] [place] [address], [place] [address] Jun, [facility] [address] [id number] [address] [place] [address] Jun, [facility] [address] [id number] [address] [place] [address], [place] [address] May, [facility] [address] [id number] [address] [place] [address], [place] [address] 15 May, 2014 [facility] [address] [id number] [address] [place] [address], [place] [address] May, [facility] [address] [id number] [address] [place] [address], [place] [address] May, [facility] [address] [id number] [address] [place] [address], [place] [address] Apr, [facility] [address] [id number] [address] [place] [address], [place] [address] Apr, [facility] [address] [id number] [address] [place] [address], [place] [address] Apr, [facility] [address] [id number] [address] [place] [address], [place] [address] Apr, [facility] [address] [id number] [address] [place] [address], [place] [address] Apr, [facility] [address] [id number] [address] [place] [address], [place] [address] Apr, [facility] [address] [id number] [address] [place] [address], [place] [address] Mar, [facility] [address] [id number] [address] [place] [address], [place] [address] Mar, [facility] [address] [id number] [address] [place] [address], [place] [address] Mar, [facility] [address] [id number] [address] [place] [address], [place] [address] Mar, [facility] [address] [id number] [address] [place] [address], [place] [address] Mar, [facility] [address] [id number] [address] [place] [address], [place] [address] Mar, [facility] [address] [id number] [address] [place] [address], [place] [address] Mar, [facility] [address] [id number] [address] [place] [address], [place] [address] Mar, [facility] [address] [id number] [address] [place] [address], [place] [address] Mar, [facility] [address] [id number] [address] [place] [address], [place] [address] Mar, [facility] [address] [id number] [address] [place] [address], [place] [address] Mar, [facility] [address] [id number] [address] [place] [address], [place] [address] Mar, [facility] [address] [id number] [address] [place] [address], [place] [address] Mar, [facility] [address] [id number] [address] [place] [address], [place] [address] 26 Feb, 2013 [facility] [address] [id number] [address] [place] [address], [place] [address] 26 Feb, 2013 [facility] [address] [id number] [address] [place] [address], [place] [address] 23 Feb, 2013 [facility] [address] [id number] [address] [place] [address], [place] [address] 23 Feb, 2013 [facility] [address] [id number] [address] [place] [address], [place] [address] 19 Feb, 2013 [facility] [address] [id number] [address] [place] [address] 19 Feb, 2013 [facility] [address] [id number] [address] [place] [address], [place] [address] 13 Feb, 2013 [facility] [address] [id number] [address] [place] [address], [place] [address] 13 Feb, 2013 [facility] [address] [id number] [address] [place] [address], [place] [address] 12 Feb, 2013 [facility] [address] [id number] [address] [place] [address], [place] [address] Feb, [facility] [address] [id number] [address] [place] [address], [place] [address] Jan, [facility] [address] [id number] [address] [place] [address], [place] [address] Jan, [facility] [address] [id number] [address] [place] [address], [place] [address] Dec, [facility] [address] [id number] [address] [place] [address], [place] [address] Dec, [facility] [address] [id number] [address] [place] [address], [place] [address] Dec, [facility] [address] [id number] [address] [place] [address], [place] [address] Dec, [facility] [address] [id number] [address] [place] [address], [place] [address] Dec, [facility] [address] [id number] [address] [place] [address], [place] [address] Dec, [facility] [address] [id number] [address] [place] [address], [place] [address] Nov, [facility] [address] [id number] [address] [place] [address], [place] [address] Nov, [facility] [address] [id number] [address] [place] [address], [place] [address] Nov, [facility] [address] [id number] [address] [place] [address], [place] [address] Nov, [facility] [address] [id number] [address] [place] [address], [place] [address] October, [facility] [address] [id number] [address] [place] [address], [place] [address] October, [facility] [address] [id number] [address] [place] [address], [place] [address] October, [facility] [address] [id number] [address] [place] [address], [place] [address] October, [facility] [address] [id number] [address] [place] [address], [place] [address] October, [facility] [address] [id number] [address] [place] [address], [place] [address] October, [facility] [address] [id number] [address] [place] [address], [place] [address] October, [facility] [address] [id number] [address] [place] [address], [place] [address] October, [facility] [address] [id number] [address] [place] [address], [place] [address] October, [facility] [address] [id number] [address] [place] [address], [place] [address] October, [facility] [address] [id number] [address] [place] [address], [place] [address] October, [facility] [address] [id number] [address] [place] [address], [place] [address] October, [facility] [address] [id number] [address] [place] [address], [place] [address] October, [facility] [address] [id number] [address] [place] [address], [place] [address] October, [facility] [address] [id number] [address] [place] [address], [place] [address] October, [facility] [address] [id number] [address] [place] [address], [place] [address] October, [facility] [address] [id number] [address] [place] [address], [place] [address] Sep, [facility] [address] [id number] [address] [place] [address], [place] [address] Sep, [facility] [address] [id number] [address] [place] [address], [place] [address] 14 Sep, 2013 [facility] [address] [id number] [facility] [place] [address] 14 Sep, 2013 [facility] [address] [id number] [address] [place] [address], [place] [address] Sep, [facility] [address] [id number] [facility] [place] [address] Sep, [facility] [address] [id number] [address] [place] [address], [place] [address] Aug, [facility] [address] [id number] [address] [place] [address], [place] [address] Aug, [facility] [address] [id number] [address] [place] [address], [place] [address] Aug, [facility] [address] [id number] [address] [place] [address], [place] [address] Aug, [facility] [address] [id number] [address] [place] [address], [place] [address] Aug, [facility] [address] [id number] [address] [place] [address], [place] [address] Aug, [facility] [address] [id number] [address] [place] [address], [place] [address] Jul, [facility] [address] [id number] [address] [place] [address], [place] [address] Jul, [facility] [address] [id number] [address] [place] [address], [place] [address] Jul, [facility] [address] [id number] [address] [place] [address], [place] [address] Jul, [facility] [address] [id number] [address] [place] [address], [place] [address] Jun, [facility] [address] [id number] [address] [place] [address], [place] [address] Jun, [facility] [address] [id number] [address] [place] [address], [place] [address] 11 May, 2013 [facility] [address] [id number] [address] [place] [address], [place] [address] 11 May, 2013 [facility] [address] [id number] [address] [place] [address], [place] [address] May, [facility] [address] [id number] [address] [place] [address], [place] [address] May, [facility] [address] [id number] [address] [place] [address], [place] [address] May, [facility] [address] [id number] [address] [place] [address], [place] [address] Apr, [facility] [address] [id number] [address] [place] [address], [place] [address] Apr, [facility] [address] [id number] [address] [place] [address], [place] [address] Apr, [facility] [address] [id number] [address] [place] [address], [place] [address] Apr, [facility] [address] [id number] [address] [place] [address], [place] [address] 04 Apr, 2013 [facility] [address] [id number] [address] [place] [address], [place] [address] 04 Apr, 2013 [facility] [address] [id number] [address] [place] [address], [place] [address] 15 Mar, 2013 [facility] [address] [id number] [address] [place] [address], [place] [address] 15 Mar, 2013 [facility] [address] [id number] [address] [place] [address], [place] [address] 14 Mar, 2013 [facility] [address] [id number] [address] [place] [address], [place] [address] 14 Mar, 2013 [facility] [address] [id number] [address] [place] [address], [place] [address] Mar, [facility] [address] [id number] [address] [place] [address], [place] [address] Mar, [facility] [address] [id number] [address] [place] [address], [place] [address] Feb, [facility] [address] [id number] [address] [place] [address], [place] [address] Feb, [facility] [address] [id number] [address] [place] [address], [place] [address] Feb, [facility] [address] [id number] [address] [place] [address], [place] [address] Jan, [facility] [address] [id number] [address] [place] [address], [place] [address] Jan, [facility] [address] [id number] [address] [place] [address], [place] [address] Jan, [facility] [address] [id number] [address] [place] [address], [place] [address] Jan, [facility] [address] [id number] [address] [place] [address], [place] [address] Jan, [facility] [address] [id number] [address] [place] [address], [place] [address] Jan, [facility] [address] [id number] [address] [place] [address], [place] [address] Dec, [facility] [address] [id number] [address] [place] [address], [place] [address] Dec, [facility] [address] [id number] [address] [place] [address], [place] [address] Dec, [facility] [address] [id number] [address] [place] [address], [place] [address] Dec, [facility] [address] [id number] [address] [place] [address], [place] [address] Dec, [facility] [address] [id number] [address] [place] [address], [place] [address] 09 Dec, 2012 [facility] [address] [id number] [address] [place] [address], [place] [address] 26 Nov, 2012 [facility] [address] [id number] [address] [place] [address], [place] [address] Nov, [facility] [address] [id number] [address] [place] [address], [place] [address] 18 Nov, 2012 [facility] [address] [id number] [address] [place] [address], [place] [address] 13 Nov, 2012 [facility] [address] [id number] [address] [place] [address], [place] [address] Nov, [facility] [address] [id number] [address] [place] [address], [place] [address] Nov, [facility] [address] [id number] [address] [place] [address], [place] [address] October, [facility] [address] [id number] [address] [place] [address], [place] [address] October, [facility] [address] [id number] [address] [place] [address], [place] [address] October, [facility] [address] [id number] [address] [place] [address], [place] [address] October, [facility] [address] [id number] [address] [place] [address], [place] [address] October, [facility] [address] [id number] [address] [place] [address], [place] [address] 30 Sep, 2012 [facility] [address] [id number] [address] [place] [address], [place] [address] Sep, [facility] [address] [id number] [address] [place] [address], [place] [address] Sep, [facility] [address] [id number] [address] [place] [address], [place] [address] 18 Sep, 2012 [facility] [address] [id number] [address] [place] [address], [place] [address] Sep, [facility] [address] [id number] 50 [place] [address], [place] [address] 26 Aug, 2012 [facility] [address] [id number] [address] [place] [address], [place] [address] 07 Aug, 2012 [facility] [address] [id number] [address] [place] [address], [place] [address] 04 Aug, 2012 [facility] [address] [id number] [address] [place] [address], [place] [address] Jul, [facility] [address] [id number] [address] [place] [address], [place] [address] 20 Jul, 2012 [facility] [address] [id number] [address] [place] [address], [place] [address] Jul, [facility] [address] [id number] [address] [place] [address], [place] [address] 08 Jul, 2012 [facility] [address] [id number] [address] [place] [address], [place] [address] 06 Jul, 2012 [facility] [address] [id number] [address] [place] [address], [place] [address] 05 Jul, 2012 [facility] [address] [id number] [address] [place] [address], [place] [address] Jun, [facility] [address] [id number] [address] [place] [address], [place] [address] 16 Apr, 2012 [facility] [address] [id number] [address] [place] [address], [place] [address] Apr, [facility] [address] [id number] [address] [place] [address], [place] [address] Apr, [facility] [address] [id number] [address] [place] [address], [place] [address] Apr, [facility] [address] [id number] [address] [place] [address] Mar, [facility] [address] [id number] [address] [place] [address], [place] [address] Mar, [facility] [address] [id number] [address] [place] [address], [place] [address] Mar, [facility] [address] [id number] [address] [place] [address], [place] [address] Mar, [facility] [address] [id number] [address] [place] [address], [place] [address] Mar, [facility] [address] [id number] [address] [place] [address], [place] [address] Feb, [facility] [address] [id number] [address] [place] [address], [place] [address] Jan, [facility] [address] [id number] [address] [place] [address], [place] [address] Jan, [facility] [address] [id number] [address] [place] [address], [place] [address] Jan, [facility] [address] [id number] [address] [place] [address], [place] [address] Dec, [facility] [address] [id number] [address] [place] [address], [place] [address] Nov, [facility] [address] [id number] [address] [place] [address], [place] [address] Nov, [facility] [address] [id number] [address] [place] [address] Nov, [facility] [address] [id number] [address] [place] [address], [place] [address] Nov, [facility] [address] [id number] [address] [place] [address] Nov, [facility] [address] [id number] [address] [place] [address], [place] [address] October, [facility] [address] [facility] [id number] [address] [place] [address] October, [facility] [address] [facility] [id number] [address] [place] [address] October, [facility] [address] [facility] [id number] [address] [place] [address] October, [facility] [address] [facility] [id number] [address] [place] [address] October, IMMUNIZATIONS No Known Immunizations SOCIAL HISTORY Never Assessed REASON FOR VISIT PLAN OF CARE VITAL SIGNS Height 66 in 2012-12-22 Weight 274.9 lbs 2012-12-22 Temperature 97.8 degrees Fahrenheit 2012-12-22 Heart Rate 76 bpm 2012-12-22 Respiratory Rate 16 2012-12-22 Blood pressure systolic 102 mmHg 2012-12-22 Blood pressure diastolic 70 mmHg 2012-12-22 MEDICATIONS Unknown Medications RESULTS No Results PROCEDURES [...]
--- OUTSIDE RECORDS SUMMARY | 2020-01-25 08:15 | XMS REPORT ---
Author Author Velma CORDERO Organization [facility] Address [address] [place] [address] Care Team Providers Care Housing Assistant Property Manager Name Role Phone STEPHAN CORDERO Unavailable PROBLEMS Type Condition ICD9-CM Code MMX35-ZC Code Onset Dates Condition S tatus SNOMED Code Problem Corns L84 Active 545531511 Problem Primary insomnia F51.01 Active 397 2004 Problem Hyperparathyroidism E21.3 Active 94596503 Problem Hypercholesteremia E78.0 Active 1 2743204 Problem Mood disorder F39 Active 555038 05 Problem Arthritis M19.90 Active 7376192 Problem 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 Active 72178042 Problem Myalgia M79.1 Active 99617953 Problem Chronic kidney disease, stage 4 (severe) N18.4 Active 946720300 Problem Primary osteoarthritis of left knee M17.12 Active [id number] Problem Irritable bowel syndrome with both constipation and diarrh ea K58.2 Active 11052340 Problem Other chronic pain G89.29 Active 8 7542782 Problem BPV (benign positional vertigo), bilateral H81.13 Active 961925713 Problem Hyperparathyroidism, unspecified E21.3 Active 21043260 Problem 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 Active 11715345 Problem Body mass index (BMI) of 40.0-44.9 in adult Z68.41 Active 836369660 Problem Unspecified kidney failure N19 Act chip 08231430 Problem 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 Active 868534021 Problem Unspecified inflammatory spo ndylopathy, sacral and sacrococcygeal region M46.98 Active [id number] ALLERGIES No Information ENCOUNTERS Encounter Location Date Diagnosis [facility] [address] [facility] [id number] [address] [place] [phone] Nov, Hyperparathyroidism, unspeci fied E21.3 [facility] [address] [facility] [id number] [address] [place] [address] Nov, Chronic kidney disease, stag e 4 (severe) N18.4 ; Hyperparathyroidism, unspecified E21.3 and Left otitis media with effusion H65.92 [place] [address] [facility] [id number] [address] [place] [address] Nov, Hyperparathyroidism, unspeci fied E21.3 [place] [address] [facility] [id number] [address] [place] [phone] October, [place] [address] [facility] [id number] [address] [place] [address] October, Hyperparathyroidism, unspeci fied E21.3 [place] [address] [place] [id number] [address] [place] [phone] October, Hyperparathyroidism, unspeci fied E21.3 [place] [address] [place] [id number] [address] [place] [phone] Sep, Hyperparathyroidism, unspeci fied E21.3 [place] [address] [facility] [id number] [address] [place] [phone] Aug, Hyperparathyroidism, unspeci fied E21.3 [place] [address] [place] [id number] [address] [place] [address] Aug, Pain in left knee M25.562 ; Other chronic pain G89.29 ; Unspecified inflammatory spondylopathy, sacral and sacrococcygeal region M46.98 ; Chronic kidney disease, stage 4 (severe) N18.4 and Hyperparathyroidism, unspecified E21.3 [place] [address] [facility] [id number] [address] [place] [address] Jul, [place] [address] [place] [id number] [address] [place] [address] Jul, Arthritis M19.90 [place] [address] [facility] [id number] [address] [place] [address] Jun, Knee pain, left M25.562 [place] [address] [place] [id number] [address] [place] [address] May, Arthritis M19.90 [facility] [address] [facility] [id number] [address] [place] [address] Apr, Well woman exam without gyne cological exam Z00.00 and Screening for breast cancer Z12.39 [facility] [address] [facility] [id number] [address] [place] [phone] Mar, Arthritis M19.90 [facility] [address] [facility] [id number] [address] [place] [address] Mar, Arthritis M19.90 [facility] [address] [place] [id number] [address] [place] [phone] Mar, [facility] [address] [place] [id number] [address] [place] [address] Mar, Arthritis M19.90 and Encount er for immunization Z23 [facility] [address] [facility] [id number] [address] [place] [address] Feb, Arthritis M19.90 [facility] [address] [facility] [id number] [address] [place] [address] Feb, [facility] [address] [place] [id number] [address] [place] [address] Feb, Other specified disorders of bone density and structure, unspecified site M85.80 [facility] [address] [facility] [id number] [address] [place] [address] Jan, Arthritis M19.90 [facility] [address] [facility] [id number] [address] [place] [address] Dec, Arthritis M19.90 [facility] [address] [facility] [id number] [address] [place] [address] Nov, Inflammatory spondylopathy o f sacral region M46.98 [facility] [address] [place] [id number] [address] [place] [address] Nov, [facility] [address] [facility] [id number] [address] [place] [address] Nov, Labyrinthitis of left ear H8 3.02 [facility] [address] [facility] [id number] [address] [place] [address] 03 Nov, 2018 Arthritis M19.90 [facility] [address] [facility] [id number] [address] [place] [address] 15 Sep, 2018 Arthritis M19.90 [facility] [address] [facility] [id number] [address] [place] [address] Sep, Renal insufficiency N28.9 an d Unspecified kidney failure N19 [facility] [address] [facility] [id number] [address] [place] [address] Sep, Renal insufficiency N28.9 an d Unspecified kidney failure N19 [facility] [address] [facility] [id number] [address] [place] [address] Sep, Arthritis M19.90 [facility] [address] [facility] [id number] [address] [place] [address] Aug, Exercise counseling Z71.82 [facility] [address] [facility] [id number] [address] [place] [address] Aug, [facility] [address] [facility] [id number] [address] [place] [address] Jul, Labyrinthitis of left ear H8 3.02 [facility] [address] [facility] [id number] [address] [place] [phone] Jul, Labyrinthitis of left ear H8 3.02 [facility] [address] [facility] [id number] [address] [place] [address] Jul, Exercise counseling Z71.82 [facility] [address] [facility] [id number] [address] [place] [address] Jul, [facility] [address] [facility] [id number] [address] [place] [address] 14 Jul, 2018 Arthritis M19.90 [place] [address] [facility] [id number] [address] [place] [address] 13 Jul, 2018 Encounter for Medicare annua l wellness exam Z00.00 ; Chronic kidney disease, stage 4 (severe) N18.4 ; Body mass index (BMI) of 40.0-44.9 in adult Z68.41 ; Hyperparathyroidism E21.3 and BMI 40.0-44.9, adult Z68.41 [place] [address] [facility] [id number] [address] [place] [address] 13 Jul, 2018 Encounter for Medicare annua l wellness exam Z00.00 ; Chronic kidney disease, stage 4 (severe) N18.4 ; Hyperparathyroidism E21.3 ; Body mass index (BMI) of 40.0-44.9 in adult Z68.41 and Encounter for immunization Z23 [place] [address] [place] [id number] [address] [place] [phone] 11 Jul, 2018 Tail bone pain M53.3 [place] [address] [place] [id number] [address] [place] [address] 29 Jun, 2018 Exercise counseling Z71.82 [place] [address] [place] [id number] [place] [address] Jun, Labyrinthitis of left ear H8 3.02 [place] [address] [place] [id number] [address] [place] [address] Jun, Tail bone pain M53.3 ; Irrit able bowel syndrome with both constipation and diarrhea K58.2 and Dysfunction of left eustachian tube H69.82 [place] [address] [facility] [id number] [address] [place] [address] Jun, Exercise counseling Z71.82 [place] [address] [place] [id number] [address] [place] [address] Jun, Arthritis M19.90 [place] [address] [place] [id number] [address] [place] [address] Jun, Irritable bowel syndrome wit h both constipation and diarrhea K58.2 ; Tail bone pain M53.3 and Dysfunction of left eustachian tube H69.82 [facility] [address] [id number] [address] [place] [address] Jun, Exercise counseling Z71.82 [facility] [address] [id number] [address] [place] [address] Jun, Exercise counseling Z71.82 [facility] [address] [id number] [address] [place] [address] Jun, Labyrinthitis of left ear H8 3.02 [place] [address] [id number] [address] [place] [address] May, Exercise counseling Z71.82 [place] [address] [id number] [address] [place] [address] May, Arthritis M19.90 [facility] [address] [id number] [address] [place] [address] May, Exercise counseling Z71.82 [facility] [address] [id number] [address] [place] [address] May, Exercise counseling Z71.82 [facility] [address] [id number] [address] [place] [address] May, Labyrinthitis of left ear H8 3.02 [facility] [address] [id number] [address] [place] [address] May, Exercise counseling Z71.82 [facility] [address] [id number] [address] [place] [address] Apr, Arthritis M19.90 [facility] [address] [id number] [address] [place] [address] Apr, Exercise counseling Z71.82 [facility] [address] [id number] [address] [place] [address] Apr, Exercise counseling Z71.82 [place] [address] [address] Apr, Primary osteoarthritis of le ft knee M17.12 [place] [address] [address] Apr, Labyrinthitis of left ear H8 3.02 [place] [address] [address] Mar, Arthritis M19.90 [place] [address] [address] Mar, [place] [address] [address] Mar, Chronic kidney disease, stag e 4 (severe) N18.4 [place] [address] [address] Mar, Chronic kidney disease, stag e 4 (severe) N18.4 [place] [address] [address] Mar, Labyrinthitis of left ear H8 3.02 [place] [address] [address] 05 Mar, 2018 Chronic kidney disease, stag e 4 (severe) N18.4 ; Knee pain, left anterior M25.562 ; Deficiency of other specified B group vitamins E53.8 and Encounter for immunization Z23 [place] [address] [place] [id number] [address] [place] [address] Mar, Arthritis M19.90 [place] [address] [address] Feb, Labyrinthitis of left ear H8 3.02 [place] [address] [address] 06 Feb, 2018 Arthritis M19.90 [place] [address] [place] [id number] [address] [place] [address] Jan, Labyrinthitis of left ear H8 3.02 [facility] [address] [facility] [id number] [address] [place] [address] Jan, Arthritis M19.90 [facility] [address] [facility] [id number] [address] [place] [phone] Dec, Labyrinthitis of left ear H8 3.02 [facility] [address] [facility] [id number] [address] [place] [address] Nov, Arthritis M19.90 [place] [address] [place] [id number] [address] [place] [address] Nov, Labyrinthitis of left ear H8 3.02 [place] [address] [place] [id number] [address] [place] [address] Nov, BMI 40.0-44.9, adult Z68.41 ; Chronic kidney disease, stage 4 (severe) N18.4 and Acute right-sided thoracic back pain M54.6 [place] [address] [place] [id number] [address] [place] [address] October, Labyrinthitis of left ear H8 3.02 and Arthritis M19.90 [place] [address] [place] [id number] [address] [place] [address] Sep, BPV (benign positional verti go), bilateral H81.13 ; Dysfunction of left eustachian tube H69.82 and BMI 40.0-44.9, adult Z68.41 [place] [address] [facility] [id number] [address] [place] [address] Sep, Labyrinthitis of left ear H8 3.02 and Arthritis M19.90 [place] [address] [facility] [id number] [address] [place] [address] Sep, [place] [address] [place] [id number] [address] [place] [address] Sep, [facility] [address] [id number] [address] [place] [address] Sep, Chronic kidney disease, stag e 4 (severe) N18.4 [facility] [address] [id number] [address] [place] [address] Sep, Chronic kidney disease, stag e 4 (severe) N18.4 [facility] [address] [id number] [address] [place] [address] Aug, Labyrinthitis of left ear H8 3.02 and Arthritis M19.90 [facility] [address] [id number] [address] [place] [address] Aug, [facility] [address] [id number] [address] [place] [address] Jul, [facility] [address] [facility] [id number] [address] [place] [address] Jul, Arthritis M19.90 and Labyrin thitis of left ear H83.02 [facility] [address] [id number] [address] [place] [address] Jul, [facility] [address] [id number] [address] [place] [address] Jun, [facility] [address] [id number] [address] [place] [address] Jun, Arthritis M19.90 and Labyrin thitis of left ear H83.02 [facility] [address] [facility] [id number] [address] [place] [address] Jun, Pre-op evaluation Z01.818 ; BMI 40.0-44.9, adult Z68.41 and Encounter for immunization Z23 [facility] [address] [facility] [id number] [address] [place] [address] May, Arthritis M19.90 and Labyrin thitis of left ear H83.02 [facility] [address] [place] [id number] [address] [place] [address] Apr, Labyrinthitis of left ear H8 3.02 [place] [address] [place] [id number] [address] [place] [address] Apr, Arthritis M19.90 and Labyrin thitis of left ear H83.02 [place] [address] [place] [id number] [address] [place] [address] Mar, Arthritis M19.90 and Labyrin thitis of left ear H83.02 [place] [address] [place] [id number] [address] [place] [address] Mar, Chronic kidney disease, stag e 4 (severe) N18.4 [place] [address] [place] [id number] [address] [place] [address] Feb, Arthritis M19.90 and Labyrin thitis of left ear H83.02 [place] [address] [place] [id number] [place] [address] Jan, Labyrinthitis of left ear H8 3.02 and Deficiency of other specified B group vitamins E53.8 [place] [address] [place] [id number] [address] [place] [address] Dec, Arthritis M19.90 [place] [address] [place] [id number] [address] [place] [address] Dec, BPV (benign positional verti go), bilateral H81.13 [place] [address] [place] [id number] [address] [place] [address] Dec, [place] [address] [place] [id number] [address] [place] [id number] Dec, [place] [address] [place] [id number] [address] [place] [id number] Dec, [place] [address] [place] [id number] [address] [place] [address] Nov, Arthritis M19.90 and Deficie ncy of other specified B group vitamins E53.8 [facility] [address] [id number] [address] [place] [address] Nov, Arthritis M19.90 [facility] [address] [id number] [address] [place] [address] Nov, Hyperparathyroidism E21.3 [facility] [address] [facility] [id number] [address] [place] [address] October, [facility] [address] [id number] [address] [place] [address] October, Hyperparathyroidism E21.3 [facility] [address] [facility] [id number] [address] [place] [address] October, [facility] [address] [facility] [id number] [address] [place] [address] October, Renal insufficiency N28.9 an d Hyperparathyroidism E21.3 [facility] [address] [facility] [id number] [address] [place] [address] October, [facility] [address] [facility] [id number] [address] [place] [address] October, Renal insufficiency N28.9 an d Hyperparathyroidism E21.3 [facility] [address] [facility] [id number] [address] [place] [address] October, Arthritis M19.90 [facility] [address] [facility] [id number] [address] [place] [address] Sep, [facility] [address] [facility] [id number] [address] [place] [address] Sep, Lumbar neuritis M54.16 ; Tho racic abscess J86.9 and Deficiency of other specified B group vitamins E53.8 [facility] [address] [id number] [address] [place] [address] Sep, [facility] [address] [facility] [id number] [address] [place] [address] Aug, Arthritis M19.90 [facility] [address] [facility] [id number] [address] [place] [address] Aug, Hyperparathyroidism E21.3 [facility] [address] [facility] [id number] [address] [place] [address] Aug, Hyperparathyroidism E21.3 [facility] [address] [facility] [id number] [address] [place] [address] Aug, Arthritis M19.90 [facility] [address] [facility] [id number] [address] [place] [address] Jul, Mass of throat R22.1 [facility] [address] [place] [id number] [address] [place] [address] Jul, [facility] [address] [address] Jul, Arthritis M19.90 [facility] [address] [place] [id number] [address] [place] [address] Jun, Arthritis M19.90 [facility] [address] [place] [id number] [address] [place] [address] Jun, [facility] [id number] [place] [address] Jun, Renal insufficiency N28.9 an d Parathyroid abnormality E21.5 [facility] [address] [facility] [id number] [address] [place] [address] 05 Jun, 2016 Medicare welcome exam Z00.00 ; Encounter for immunization Z23 ; Arthritis M19.90 ; Medicare annual wellness visit, initial Z00.00 ; Medicare annual wellness visit, subsequent Z00.00 and Deficiency of other specified B group vitamins E53.8 [facility] [address] [facility] [id number] [address] [place] [phone] May, Renal insufficiency N28.9 an d Parathyroid abnormality E21.5 [facility] [address] [facility] [id number] [address] [place] [id number] 19 May, 2016 Renal insufficiency N28.9 [facility] [address] [facility] [id number] [address] [place] [phone] 16 May, 2016 Renal insufficiency N28.9 [facility] [address] [facility] [id number] [address] [place] [phone] 14 May, 2016 [facility] [address] [facility] [id number] [address] [place] [phone] 16 Apr, 2016 [facility] [address] [facility] [id number] [address] [place] [phone] 16 Apr, 2016 [facility] [address] [facility] [id number] [address] [place] [phone] 14 Apr, 2016 Mass of throat R22.1 [facility] [address] [facility] [id number] [address] [place] [phone] 10 Apr, 2016 [facility] [address] [facility] [id number] [address] [place] [phone] 10 Apr, 2016 Mass of throat R22.1 [facility] [address] [facility] [id number] [address] [place] [phone] 04 Apr, 2016 Mass of throat R22.1 [facility] [address] [facility] [id number] [address] [place] [phone] 31 Mar, 2016 [facility] [address] [facility] [id number] [address] [place] [phone] Mar, [facility] [address] [facility] [id number] [address] [place] [phone] Mar, [facility] [address] [facility] [id number] [address] [place] [phone] 24 Mar, 2016 Parathyroid abnormality E21. 5 and Encounter for immunization Z23 [facility] [address] [facility] [id number] [address] [place] [phone] 17 Mar, 2016 [facility] [address] [facility] [id number] [address] [place] [phone] Mar, [facility] [address] [id number] [address] [place] [phone] 21 Feb, 2016 Renal insufficiency N28.9 an d Hyperparathyroidism E21.3 [facility] [address] [id number] [address] [place] [id number] 19 Feb, 2016 [facility] [address] [id number] [address] [place] [id number] 15 Feb, 2016 Renal insufficiency N28.9 an d Hyperparathyroidism E21.3 [facility] [address] [id number] [address] [place] [phone] 14 Feb, 2016 [facility] [address] [id number] [address] [place] [address] 12 Feb, 2016 [facility] [address] [facility] [id number] [address] [place] [address] Feb, [facility] [address] [facility] [id number] [address] [place] [address] Jan, [facility] [address] [facility] [id number] [address] [place] [address] Jan, Arthritis M19.90 ; Lumbago w ith sciatica, right side M54.41 and Other chronic pain G89.29 [facility] [address] [facility] [id number] [address] [place] [address] Jan, [facility] [address] [facility] [id number] [address] [place] [address] Dec, Arthritis M19.90 ; Lumbago w ith sciatica, right side M54.41 and Other chronic pain G89.29 [facility] [address] [facility] [id number] [address] [place] [address] Nov, Deficiency of other specifie d B group vitamins E53.8 ; Primary insomnia F51.01 ; Mood disorder F39 and Lumbago with sciatica, right side M54.41 [facility] [address] [facility] [id number] [address] [place] [address] Nov, Hyperparathyroidism E21.3 [facility] [address] [facility] [id number] [address] [place] [address] Nov, Unspecified kidney failure N 19 and Hyperparathyroidism E21.3 [facility] [address] [facility] [id number] [address] [place] [address] October, Hyperparathyroidism E21.3 [facility] [address] [address] October, [facility] [address] [address] October, Hyperparathyroidism E21.3 [facility] [address] [address] October, Hyperparathyroidism E21.3 [facility] [address] [address] Sep, Hyperparathyroidism E21.3 ; Hypercholesterolemia E78.0 and Arthritis M19.90 [facility] [address] [address] Aug, [facility] [address] [address] Aug, Deficiency of other specifie d B group vitamins E53.8 [facility] [address] [place] [id number] [address] [place] [address] Aug, [facility] [address] [address] Jul, Urinary frequency R35.0 [facility] [address] [address] Jul, Urinary frequency R35.0 [facility] [address] [place] [id number] [address] [place] [address] Jul, [facility] [address] [address] Jul, [facility] [address] [id number] [address] [place] [address] Jun, Pain in left knee M25.562 [facility] [address] [id number] [address] [place] [address] Jun, [facility] [address] [id number] [address] [place] [address] May, Swelling of left knee joint M25.462 [facility] [address] [id number] [address] [place] [address] May, [facility] [address] [id number] [address] [place] [address] May, [facility] [address] [facility] [id number] [address] [place] [address] May, [facility] [address] [facility] [id number] [address] [place] [address] Apr, Renal insufficiency N28.9 an d Chronic kidney disease, stage 4 (severe) N18.4 [facility] [address] [facility] [id number] [address] [place] [address] Apr, Unspecified kidney failure N 19 [facility] [address] [facility] [id number] [address] [place] [address] Apr, Unspecified kidney failure N 19 [facility] [address] [facility] [id number] [address] [place] [address] Apr, [facility] [address] [facility] [id number] [address] [place] [address] Apr, Hyperparathyroidism, unspeci fied 252.00 [facility] [address] [facility] [id number] [address] [place] [address] Apr, [facility] [address] [facility] [id number] [address] [place] [address] Mar, [facility] [address] [facility] [id number] [address] [place] [address] Mar, [facility] [address] [id number] [address] [place] [address] Mar, Hyperparathyroidism, unspeci fied 252.00 [facility] [address] [id number] [address] [place] [address] Feb, [facility] [address] [facility] [id number] [address] [place] [address] Feb, Otalgia 388.70 [facility] [address] [facility] [id number] [address] [place] [address] Feb, [facility] [address] [facility] [id number] [address] [place] [address] Feb, [facility] [address] [facility] [id number] [address] [place] [address] Jan, [facility] [address] [facility] [id number] [address] [place] [address] Jan, Hyperparathyroidism, unspeci fied 252.00 [facility] [address] [id number] [address] [place] [address] Jan, [facility] [address] [facility] [id number] [address] [place] [address] Jan, Other B-complex deficiencies 266.2 and Hyperparathyroidism, unspecified 252.00 [facility] [address] [facility] [id number] [address] [place] [address] Jan, [facility] [address] [facility] [id number] [address] [place] [address] Jan, [facility] [address] [facility] [id number] [address] [place] [address] Jan, [facility] [address] [facility] [id number] [address] [place] [address] Dec, [facility] [address] [facility] [id number] [address] [place] [address] Dec, [facility] [address] [id number] [address] [place] [address] Dec, [facility] [address] [id number] [address] [place] [address] Nov, Routine check-up V70.0 and P re-op exam V72.84 [facility] [address] [id number] [address] [place] [address] Nov, [facility] [address] [id number] [address] [place] [address] Nov, [facility] [address] [id number] [address] [place] [address] October, [facility] [address] [id number] [address] [place] [address] October, Other B-complex deficiencies 266.2 [facility] [address] [id number] [address] [place] [address] October, [facility] [address] [id number] [address] [place] [address] Sep, [facility] [address] [id number] [address] [place] [address] Sep, [facility] [address] [id number] [address] [place] [address] Aug, [facility] [address] [id number] [address] [place] [address] Aug, [facility] [address] [id number] [address] [place] [address] Aug, [facility] [address] [id number] [address] [place] [address] 17 Aug, 2014 [facility] [address] [id number] [address] [place] [address] Aug, [facility] [address] [id number] [address] [place] [address] Aug, [facility] [address] [id number] [address] [place] [address], [place] [address] Jul, 2014 [facility] [address] [id number] [address] [place] [address], [place] [address] Jul, 2014 [facility] [address] [id number] [address] [place] [address], [place] [address] Jul, 2014 [facility] [address] [id number] [address] [place] [address], [place] [address] Jul, 2014 [facility] [address] [id number] [address] [place] [address], [place] [address] Jul, 2014 [facility] [address] [id number] [address] [place] [address], [place] [address] Jul, 2014 [facility] [address] [id number] [address] [place] [address], [place] [address] Jul, 2014 [facility] [address] [id number] [address] [place] [address], [place] [address] Jul, 2014 [facility] [address] [id number] [address] [place] [address], [place] [address] Jul, 2014 [facility] [address] [id number] [address] [place] [address], [place] [address] Jul, 2014 [facility] [address] [id number] [address] [place] [address], [place] [address] Jul, 2014 [facility] [address] [id number] [address] [place] [address], [place] [address] Jul, 2014 [facility] [address] [id number] [address] [place] [address], [place] [address] Jul, 2014 [facility] [address] [id number] [address] [place] [address], [place] [address] Jul, 2014 [facility] [address] [id number] [address] [place] [address], [place] [address] Jun, [facility] [address] [id number] [address] [place] [address], [place] [address] Jun, [facility] [address] [id number] [address] [place] [address], [place] [address] Jun, [facility] [address] [id number] [address] [place] [address], [place] [address] Jun, [facility] [address] [id number] [address] [place] [address], [place] [address] Jun, [facility] [address] [id number] [address] [place] [address], [place] [address] Jun, [facility] [address] [id number] [address] [place] [address], [place] [address] Jun, [facility] [address] [id number] [address] [place] [address], [place] [address] Jun, [facility] [address] [id number] [address] [place] [address], [place] [address] Jun, [facility] [address] [id number] [address] [place] [address], [place] [address] Jun, [facility] [address] [id number] [address] [place] [address], [place] [address] Jun, [facility] [address] [id number] [address] [place] [address], [place] [address] Jun, [facility] [address] [id number] [address] [place] [address] Jun, [facility] [address] [id number] [address] [place] [address], [place] [address] Jun, [facility] [address] [id number] [address] [place] [address], [place] [address] May, [facility] [address] [id number] [address] [place] [address], [place] [address] May, [facility] [address] [id number] [address] [place] [address] May, [facility] [address] [id number] [address] [place] [address], [place] [address] May, [facility] [address] [id number] [address] [place] [address], [place] [address] Apr, [facility] [address] [id number] [address] [place] [address], [place] [address] Apr, [facility] [address] [id number] [address] [place] [address], [place] [address] Apr, [facility] [address] [id number] [address] [place] [address], [place] [address] Apr, [facility] [address] [id number] [address] [place] [address], [place] [address] Apr, [facility] [address] [id number] [address] [place] [address], [place] [address] Apr, [facility] [address] [id number] [address] [place] [address], [place] [address] Mar, [facility] [address] [id number] [address] [place] [address], [place] [address] Mar, [facility] [address] [id number] [address] [place] [address], [place] [address] Mar, [facility] [address] [id number] [address] [place] [address], [place] [address] Mar, [facility] [address] [id number] [address] [place] [address] 15 Mar, 2014 [facility] [address] [id number] [address] [place] [address], [place] [address] 15 Mar, 2014 [facility] [address] [id number] [address] [place] [address] Mar, [facility] [address] [id number] [address] [place] [address] Mar, [facility] [address] [id number] [address] [place] [address], [place] [address] 07 Mar, 2013 [facility] [address] [id number] [address] [place] [address], [place] [address] 07 Mar, 2013 [facility] [address] [id number] [address] [place] [address], [place] [address] 07 Mar, 2013 [facility] [address] [id number] [address] [place] [address], [place] [address] 07 Mar, 2013 [facility] [address] [id number] [address] [place] [address], [place] [address] 06 Mar, 2013 [facility] [address] [id number] [address] [place] [address], [place] [address] 26 Feb, 2013 [facility] [address] [id number] [address] [place] [address], [place] [address] 26 Feb, 2013 [facility] [address] [id number] [address] [place] [address], [place] [address] 23 Feb, 2013 [facility] [address] [id number] [address] [place] [address], [place] [address] 23 Feb, 2013 [facility] [address] [id number] [address] [place] [address], [place] [address] 19 Feb, 2013 [facility] [address] [id number] [address] [place] [address], [place] [address] 19 Feb, 2013 [facility] [address] [id number] [address] [place] [address], [place] [address] 13 Feb, 2013 [facility] [address] [id number] [address] [place] [address], [place] [address] 13 Feb, 2013 [facility] [address] [id number] [address] [place] [address], [place] [address] 12 Feb, 2013 [facility] [address] [id number] [address] [place] [address], [place] [address] 12 Feb, 2013 [facility] [address] [id number] [address] [place] [address], [place] [address] Jan, [facility] [address] [id number] [facility] [place] [address] Jan, [facility] [address] [id number] [facility] [place] [address] Dec, [facility] [address] [id number] [facility] [place] [address] Dec, [facility] [address] [id number] [address] [place] [address], [place] [address] Dec, [facility] [address] [id number] [address] [place] [address], [place] [address] Dec, [facility] [address] [id number] [address] [place] [address], [place] [address] Dec, [facility] [address] [id number] [address] [place] [address], [place] [address] Dec, [facility] [address] [id number] [address] [place] [address], [place] [address] Nov, [facility] [address] [id number] [address] [place] [address], [place] [address] Nov, [facility] [address] [id number] [address] [place] [address], [place] [address] Nov, [facility] [address] [id number] [address] [place] [address], [place] [address] Nov, [facility] [address] [id number] [address] [place] [address], [place] [address] October, [facility] [address] [id number] [address] [place] [address], [place] [address] October, [facility] [address] [id number] [address] [place] [address], [place] [address] October, [facility] [address] [id number] [address] [place] [address], [place] [address] October, [facility] [address] [id number] [address] [place] [address], [place] [address] October, [facility] [address] [id number] [address] [place] [address], [place] [address] October, [facility] [address] [id number] [address] [place] [address], [place] [address] October, [facility] [place] [address] [id number] [address] [place] [address], [place] [address] October, [facility] [address] [id number] [address] [place] [address], [place] [address] October, [facility] [address] [id number] [address] [place] [address], [place] [address] October, [facility] [address] [id number] [address] [place] [address], [place] [address] October, [facility] [place] [address] [id number] [address] [place] [address], [place] [address] October, [facility] [address] [id number] [address] [place] [address], [place] [address] October, [facility] [address] [id number] [address] [place] [address], [place] [address] October, [facility] [address] [id number] [address] [place] [address], [place] [address] October, [facility] [address] [id number] [address] [place] [address], [place] [address] October, [facility] [address] [id number] [address] [place] [address], [place] [address] Sep, [facility] [address] [id number] [address] [place] [address], [place] [address] Sep, [facility] [address] [id number] [address] [place] [address], [place] [address] Sep, [facility] [address] [id number] [address] [place] [address], [place] [address] Sep, [facility] [address] [id number] [address] [place] [address], [place] [address] Sep, [facility] [address] [id number] [address] [place] [address], [place] [address] Sep, [facility] [address] [id number] [address] [place] [address], [place] [address] Aug, [facility] [address] [id number] [address] [place] [address], [place] [address] Aug, [facility] [address] [id number] [address] [place] [address], [place] [address] Aug, [facility] [address] [id number] [address] [place] [address], [place] [address] Aug, [facility] [address] [id number] [address] [place] [address], [place] [address] Aug, [facility] [address] [id number] [address] [place] [address], [place] [address] Aug, [facility] [address] [id number] [address] [place] [address], [place] [address] Jul, [facility] [address] [id number] [address] [place] [address], [place] [address] Jul, [facility] [address] [id number] [address] [place] [address], [place] [address] Jul, [facility] [address] [id number] [address] [place] [address], [place] [address] Jul, [facility] [address] [id number] [address] [place] [address], [place] [address] Jun, [facility] [address] [id number] [address] [place] [address], [place] [address] Jun, [facility] [address] [id number] [address] [place] [address], [place] [address] May, [facility] [address] [id number] [address] [place] [id number] 11 May, 2013 [facility] [address] [id number] [address] [place] [address], [place] [address] 10 May, 2013 [facility] [address] [id number] [address] [place] [address] May, [facility] [address] [id number] [address] [place] [id number] May, [facility] [address] [id number] [address] [place] [address] Apr, [facility] [address] [id number] [address] [place] [address] Apr, [facility] [address] [id number] [address] [place] [address] Apr, [facility] [address] [id number] [address] [place] [address] Apr, [facility] [address] [id number] [address] [place] [address] Apr, [facility] [address] [id number] [address] [place] [id number] 04 Apr, 2013 [facility] [address] [id number] [address] [place] [id number] 15 Mar, 2013 [facility] [address] [id number] [address] [place] [id number] 15 Mar, 2013 [facility] [address] [id number] [address] [place] [id number] 14 Mar, 2013 [facility] [address] [id number] [address] [place] [id number] 14 Mar, 2013 [facility] [address] [id number] [address] [place] [id number] 11 Mar, 2013 [facility] [address] [id number] [address] [place] [id number] 11 Mar, 2013 [facility] [address] [id number] [facility] [place] [address] Feb, [facility] [address] [id number] [address] [place] [address], [place] [address] Feb, [facility] [address] [id number] [address] [place] [address], [place] [address] Feb, [facility] [address] [id number] [address] [place] [address], [place] [address] Jan, [facility] [address] [id number] [address] [place] [address], [place] [address] Jan, [facility] [address] [id number] [address] [place] [address], [place] [address] Jan, [facility] [address] [id number] [address] [place] [address], [place] [address] Jan, [facility] [address] [id number] [address] [place] [address], [place] [address] Jan, [facility] [address] [id number] [address] [place] [address], [place] [address] Jan, [facility] [address] [id number] [address] [place] [address], [place] [address] Dec, [facility] [address] [id number] 21 [place] [address], [place] [address] Dec, [facility] [address] [id number] [address] [place] [address], [place] [address] Dec, [facility] [address] [id number] [address] [place] [address], [place] [address] Dec, [facility] [address] [id number] [address] [place] [address], [place] [address] Dec, [facility] [address] [id number] [address] [place] [address], [place] [address] Dec, [facility] [address] [id number] [address] [place] [address], [place] [address] 26 Nov, 2012 [facility] [place] [address] [id number] [address] [place] [address], [place] [address] 19 Nov, 2012 [facility] [address] [id number] [address] [place] [address], [place] [address] 18 Nov, 2012 [facility] [address] [id number] [address] [place] [address], [place] [address] 13 Nov, 2012 [facility] [address] [id number] [address] [place] [address], [place] [address] Nov, [facility] [address] [id number] [address] [place] [address], [place] [address] Nov, [facility] [address] [id number] [address] [place] [address], [place] [address] October, [facility] [address] [id number] [address] [place] [address], [place] [address] October, [facility] [address] [id number] [address] [place] [address], [place] [address] October, [facility] [address] [id number] [address] [place] [address], [place] [address] October, [facility] [address] [id number] [address] [place] [address], [place] [address] October, [facility] [place] [address] [id number] [address] [place] [address], [place] [address] 30 Sep, 2012 [facility] [address] [id number] [address] [place] [address], [place] [address] Sep, [facility] [address] [id number] [address] [place] [address], [place] [address] Sep, [facility] [address] [id number] [address] [place] [address], [place] [address] 18 Sep, 2012 [facility] [address] [id number] [address] [place] [address], [place] [address] Sep, [facility] [address] [id number] [address] [place] [address], [place] [address] 26 Aug, 2012 [facility] [address] [id number] [address] [place] [address], [place] [address] 07 Aug, 2012 [facility] [address] [id number] [address] [place] [address], [place] [address] 04 Aug, 2012 [facility] [address] [id number] [address] [place] [address], [place] [address] 21 Jul, 2012 [facility] [address] [id number] [address] [place] [address], [place] [address] 20 Jul, 2012 [facility] [address] [id number] [address] [place] [address], [place] [address] 11 Jul, 2012 [facility] [address] [id number] [address] [place] [address], [place] [address] 08 Jul, 2012 [facility] [address] [id number] [address] [place] [address], [place] [address] 06 Jul, 2012 [facility] [place] [address] [id number] [address] [place] [address], [place] [address] 05 Jul, 2012 [facility] [place] [address] [id number] [address] [place] [address], [place] [address] 15 Jun, 2012 [facility] [address] [id number] [address] [place] [address], [place] [address] 16 Apr, 2012 [facility] [address] [id number] [address] [place] [address], [place] [address] 16 Apr, 2012 [facility] [address] [id number] [address] [place] [address], [place] [address] Apr, [facility] [address] [id number] [address] [place] [address], [place] [address] Apr, [facility] [address] [id number] [address] [place] [address], [place] [address] Mar, [facility] [address] [id number] [address] [place] [address], [place] [address] Mar, [facility] [address] [id number] [address] [place] [address], [place] [address] Mar, [facility] [address] [id number] [address] [place] [address], [place] [address] Mar, [facility] [address] [id number] [address] [place] [address], [place] [address] Mar, [facility] [address] [id number] [address] [place] [address], [place] [address] Feb, [facility] [address] [id number] [address] [place] [address], [place] [address] Jan, [facility] [address] [id number] [address] [place] [address], [place] [address] Jan, [facility] [address] [id number] [address] [place] [address], [place] [address] Jan, [facility] [address] [id number] [address] [place] [address], [place] [address] Dec, [facility] [address] [id number] [address] [place] [address], [place] [address] Nov, [facility] [address] [id number] [address] [place] [address], [place] [address] Nov, [facility] [address] [id number] [address] [place] [address], [place] [address] Nov, [facility] [address] [id number] [address] [place] [address] Nov, [facility] [address] [id number] [address] [place] [address], [place] [address] Nov, [facility] [address] [id number] [address] [place] [address], [place] [address] October, [facility] [address] [id number] [address] [place] [address], [place] [address] October, [facility] [address] [id number] [address] [place] [address] October, [facility] [address] [facility] [id number] [address] [place] [address] October, [facility] [address] [facility] [id number] [address] [place] [address] October, IMMUNIZATIONS No Known Immunizations SOCIAL HISTORY [...]
--- OUTSIDE RECORDS SUMMARY | 2020-01-25 08:15 | XMS REPORT ---
Author Author Velma CORDERO Organization [facility] Address [address] [place] [address] Care Team Providers Care Strap Stitcher Name Role Phone STEPHAN CORDERO Unavailable PROBLEMS Type Condition ICD9-CM Code [id number] Code Onset Dates Condition S tatus SNOMED Code Problem Corns L84 Active 851717014 Problem Primary insomnia F51.01 Active 397 2004 Problem Hyperparathyroidism E21.3 Active 57119120 Problem Hypercholesteremia E78.0 Active 1 6826609 Problem Mood disorder F39 Active 464975 05 Problem Arthritis M19.90 Active 4688262 Problem 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 Active 26679292 Problem Myalgia M79.1 Active 70534188 Problem Chronic kidney disease, stage 4 (severe) N18.4 Active 536179886 Problem Primary osteoarthritis of left knee M17.12 Active 498686753049821 Problem Irritable bowel syndrome with both constipation and diarrh ea K58.2 Active 78131026 Problem Other chronic pain G89.29 Active 8 0339144 Problem BPV (benign positional vertigo), bilateral H81.13 Active 270369781 Problem Hyperparathyroidism, unspecified E21.3 Active 11561382 Problem Parathyroid abnormality E21.5 Active 62074378 Problem Body mass index (BMI) of 40.0-44.9 in adult Z68.41 Active 380581246 Problem Unspecified kidney failure N19 Act chip 53128812 Problem 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 [id number] [address] [place] [phone] Nov, Hyperparathyroidism, unspeci fied E21.3 [facility] [address] [facility] [id number] [address] [place] [phone] Nov, Chronic kidney disease, stag e 4 (severe) N18.4 ; Hyperparathyroidism, unspecified E21.3 and Left otitis media with effusion H65.92 [place] [address] [address] [facility] [id number] [address] [place] [phone] Nov, Hyperparathyroidism, unspeci fied E21.3 [place] [address] [address] [facility] [id number] [address] [place] [phone] October, [place] [address] [address] [facility] [id number] [address] [place] [phone] October, Hyperparathyroidism, unspeci fied E21.3 [place] [address] [address] [place] [id number] [address] [place] [id number] October, Hyperparathyroidism, unspeci fied E21.3 [place] [address] [address] [place] [id number] [address] [place] [phone] Sep, Hyperparathyroidism, unspeci fied E21.3 [place] [address] [address] [facility] [id number] [address] [place] [phone] Aug, Hyperparathyroidism, unspeci fied E21.3 [place] [address] [address] [place] [id number] [address] [place] [id number] Aug, Pain in left knee M25.562 ; Other chronic pain G89.29 ; Unspecified inflammatory spondylopathy, sacral and sacrococcygeal region M46.98 ; Chronic kidney disease, stage 4 (severe) N18.4 and Hyperparathyroidism, unspecified E21.3 [place] [address] [address] [facility] [id number] [address] [place] [phone] Jul, [place] [address] [address] [place] [id number] [address] [place] [phone] Jul, Arthritis M19.90 [place] [address] [address] [facility] [id number] [address] [place] [id number] Jun, Knee pain, left M25.562 [place] [address] [address] [place] [id number] [address] [place] [phone] May, Arthritis M19.90 [facility] [address] [facility] [id number] [address] [place] [id number] Apr, Well woman exam without gyne cological exam Z00.00 and Screening for breast cancer Z12.39 [facility] [address] [facility] [id number] [address] [place] [phone] Mar, Arthritis M19.90 [facility] [address] [facility] [id number] [address] [place] [phone] Mar, Arthritis M19.90 [facility] [address] [place] [id number] [address] [place] [phone] Mar, [facility] [address] [place] [id number] [address] [place] [phone] Mar, Arthritis M19.90 and Encount er for immunization Z23 [facility] [address] [facility] [id number] [address] [place] [phone] Feb, Arthritis M19.90 [facility] [address] [facility] [id number] [address] [place] [phone] Feb, [facility] [address] [place] [id number] [address] [place] [phone] Feb, Other specified disorders of bone density and structure, unspecified site M85.80 [facility] [address] [facility] [id number] [address] [place] [phone] Jan, Arthritis M19.90 [facility] [address] [facility] [id number] [address] [place] [phone] Dec, Arthritis M19.90 [facility] [address] [facility] [id number] [address] [place] [phone] Nov, Inflammatory spondylopathy o f sacral region M46.98 [facility] [address] [place] [id number] [address] [place] [phone] Nov, [facility] [address] [facility] [id number] [address] [place] [phone] Nov, Labyrinthitis of left ear H8 3.02 [facility] [address] [facility] [id number] [address] [place] [phone] 03 Nov, 2018 Arthritis M19.90 [facility] [address] [facility] [id number] [address] [place] [id number] 15 Sep, 2018 Arthritis M19.90 [facility] [address] [facility] [id number] [address] [place] [phone] Sep, Renal insufficiency N28.9 an d Unspecified kidney failure N19 [facility] [address] [facility] [id number] [address] [place] [phone] Sep, Renal insufficiency N28.9 an d Unspecified kidney failure N19 [facility] [address] [facility] [id number] [address] [place] [phone] Sep, Arthritis M19.90 [facility] [address] [facility] [id number] [address] [place] [phone] Aug, Exercise counseling Z71.82 [facility] [address] [facility] [id number] [address] [place] [phone] Aug, [facility] [address] [facility] [id number] [address] [place] [phone] Jul, Labyrinthitis of left ear H8 3.02 [facility] [address] [facility] [id number] [address] [place] [phone] Jul, Labyrinthitis of left ear H8 3.02 [facility] [address] [facility] [id number] [address] [place] [phone] Jul, Exercise counseling Z71.82 [facility] [address] [facility] [id number] [address] [place] [phone] Jul, [facility] [address] [facility] [id number] [address] [place] [phone] 14 Jul, 2018 Arthritis M19.90 [place] [id number] [facility] [id number] [address] [place] [phone] 13 Jul, 2018 Encounter for Medicare annua l wellness exam Z00.00 ; Chronic kidney disease, stage 4 (severe) N18.4 ; Body mass index (BMI) of 40.0-44.9 in adult Z68.41 ; Hyperparathyroidism E21.3 and BMI 40.0-44.9, adult Z68.41 [place] [address] [address] [facility] [id number] [address] [place] [phone] 13 Jul, 2018 Encounter for Medicare annua l wellness exam Z00.00 ; Chronic kidney disease, stage 4 (severe) N18.4 ; Hyperparathyroidism E21.3 ; Body mass index (BMI) of 40.0-44.9 in adult Z68.41 and Encounter for immunization Z23 [place] [address] [address] [place] [id number] [address] [place] [phone] 11 Jul, 2018 Tail bone pain M53.3 [place] [address] [address] [place] [id number] [address] [place] [phone] 29 Jun, 2018 Exercise counseling Z71.82 [place] [address] [address] [place] [id number] [place] [phone] Jun, Labyrinthitis of left ear H8 3.02 [place] [address] [address] [place] [id number] [address] [place] [phone] Jun, Tail bone pain M53.3 ; Irrit able bowel syndrome with both constipation and diarrhea K58.2 and Dysfunction of left eustachian tube H69.82 [place] [address] [address] [facility] [id number] [address] [place] [phone] Jun, Exercise counseling Z71.82 [place] [address] [address] [place] [id number] [address] [place] [phone] Jun, Arthritis M19.90 [place] [address] [address] [place] [id number] [address] [place] [phone] Jun, Irritable bowel syndrome wit h both constipation and diarrhea K58.2 ; Tail bone pain M53.3 and Dysfunction of left eustachian tube H69.82 [facility] [address] [id number] [address] [place] [phone] Jun, Exercise counseling Z71.82 [facility] [address] [id number] [address] [place] [phone] Jun, Exercise counseling Z71.82 [facility] [address] [id number] [address] [place] [phone] Jun, Labyrinthitis of left ear H8 3.02 [place] [address] [id number] [address] [place] [phone] May, Exercise counseling Z71.82 [place] [address] [id number] [address] [place] [phone] May, Arthritis M19.90 [facility] [address] [id number] [address] [place] [phone] May, Exercise counseling Z71.82 [facility] [address] [id number] [address] [place] [phone] May, Exercise counseling Z71.82 [facility] [address] [id number] [address] [place] [phone] May, Labyrinthitis of left ear H8 3.02 [facility] [address] [id number] [address] [place] [phone] May, Exercise counseling Z71.82 [facility] [address] [id number] [address] [place] [phone] Apr, Arthritis M19.90 [facility] [address] [id number] [address] [place] [phone] Apr, Exercise counseling Z71.82 [facility] [address] [id number] [address] [place] [phone] Apr, Exercise counseling Z71.82 [place] [address] [id number] Apr, Primary osteoarthritis of le ft knee M17.12 [place] [address] [id number] Apr, Labyrinthitis of left ear H8 3.02 [place] [address] [address] Mar, Arthritis M19.90 [place] [address] [phone] Mar, [place] [address] [phone] Mar, Chronic kidney disease, stag e 4 (severe) N18.4 [place] [address] [phone] Mar, Chronic kidney disease, stag e 4 (severe) N18.4 [place] [address] [address] Mar, Labyrinthitis of left ear H8 3.02 [place] [address] [phone] 05 Mar, 2018 Chronic kidney disease, stag e 4 (severe) N18.4 ; Knee pain, left anterior M25.562 ; Deficiency of other specified B group vitamins E53.8 and Encounter for immunization Z23 [place] [address] [address] [place] [id number] [address] [place] [phone] Mar, Arthritis M19.90 [place] [address] [address] Feb, Labyrinthitis of left ear H8 3.02 [place] [address] [id number] 06 Feb, 2018 Arthritis M19.90 [place] [address] [address] [place] [id number] [address] [place] [phone] Jan, Labyrinthitis of left ear H8 3.02 [facility] [address] [facility] [id number] [address] [place] [phone] Jan, Arthritis M19.90 [facility] [address] [facility] [id number] [address] [place] [phone] Dec, Labyrinthitis of left ear H8 3.02 [facility] [address] [facility] [id number] [address] [place] [phone] Nov, Arthritis M19.90 [place] [address] [address] [place] [id number] [address] [place] [phone] Nov, Labyrinthitis of left ear H8 3.02 [place] [address] [address] [place] [id number] [address] [place] [phone] Nov, BMI 40.0-44.9, adult Z68.41 ; Chronic kidney disease, stage 4 (severe) N18.4 and Acute right-sided thoracic back pain M54.6 [place] [address] [address] [place] [id number] [address] [place] [phone] October, Labyrinthitis of left ear H8 3.02 and Arthritis M19.90 [place] [address] [address] [place] [id number] [address] [place] [phone] Sep, BPV (benign positional verti go), bilateral H81.13 ; Dysfunction of left eustachian tube H69.82 and BMI 40.0-44.9, adult Z68.41 [place] [address] [address] [facility] [id number] [address] [place] [phone] Sep, Labyrinthitis of left ear H8 3.02 and Arthritis M19.90 [place] [address] [facility] [id number] [address] [place] [phone] Sep, [place] [address] [address] [place] [id number] [address] [place] [phone] Sep, [facility] [address] [id number] [address] [place] [phone] Sep, Chronic kidney disease, stag e 4 (severe) N18.4 [facility] [address] [id number] [address] [place] [phone] Sep, Chronic kidney disease, stag e 4 (severe) N18.4 [facility] [address] [id number] [address] [place] [phone] Aug, Labyrinthitis of left ear H8 3.02 and Arthritis M19.90 [facility] [address] [id number] [address] [place] [phone] Aug, [facility] [address] [id number] [address] [place] [phone] Jul, [facility] [address] [facility] [id number] [address] [place] [id number] Jul, Arthritis M19.90 and Labyrin thitis of left ear H83.02 [facility] [address] [id number] [address] [place] [phone] Jul, [facility] [address] [id number] [address] [place] [phone] Jun, [facility] [address] [id number] [address] [place] [phone] Jun, Arthritis M19.90 and Labyrin thitis of left ear H83.02 [facility] [address] [facility] [id number] [address] [place] [phone] Jun, Pre-op evaluation Z01.818 ; BMI 40.0-44.9, adult Z68.41 and Encounter for immunization Z23 [facility] [address] [facility] [id number] [address] [place] [phone] May, Arthritis M19.90 and Labyrin thitis of left ear H83.02 [facility] [address] [place] [id number] [address] [place] [phone] Apr, Labyrinthitis of left ear H8 3.02 [place] [address] [address] [place] [id number] [address] [place] [id number] Apr, Arthritis M19.90 and Labyrin thitis of left ear H83.02 [place] [address] [address] [place] [id number] [address] [place] [phone] Mar, Arthritis M19.90 and Labyrin thitis of left ear H83.02 [place] [address] [address] [place] [id number] [address] [place] [phone] Mar, Chronic kidney disease, stag e 4 (severe) N18.4 [place] [address] [address] [place] [id number] [address] [place] [phone] Feb, Arthritis M19.90 and Labyrin thitis of left ear H83.02 [place] [address] [address] [place] [id number] [place] [phone] Jan, Labyrinthitis of left ear H8 3.02 and Deficiency of other specified B group vitamins E53.8 [place] [address] [address] [place] [id number] [address] [place] [phone] Dec, Arthritis M19.90 [place] [address] [address] [place] [id number] [address] [place] [phone] Dec, BPV (benign positional verti go), bilateral H81.13 [place] [address] [address] [place] [id number] [address] [place] [phone] Dec, [place] [address] [address] [place] [id number] [address] [place] [phone] Dec, [place] [address] [address] [place] [id number] [address] [place] [phone] Dec, [place] [address] [address] [place] [id number] [address] [place] [phone] Nov, Arthritis M19.90 and Deficie ncy of other specified B group vitamins E53.8 [facility] [address] [id number] [address] [place] [phone] Nov, Arthritis M19.90 [facility] [address] [id number] [address] [place] [phone] Nov, Hyperparathyroidism E21.3 [facility] [address] [facility] [id number] [address] [place] [phone] October, [facility] [address] [id number] [address] [place] [phone] October, Hyperparathyroidism E21.3 [facility] [address] [facility] [id number] [address] [place] [phone] October, [facility] [address] [facility] [id number] [address] [place] [phone] October, Renal insufficiency N28.9 an d Hyperparathyroidism E21.3 [facility] [address] [facility] [id number] [address] [place] [phone] October, [facility] [address] [facility] [id number] [address] [place] [phone] October, Renal insufficiency N28.9 an d Hyperparathyroidism E21.3 [facility] [address] [facility] [id number] [address] [place] [phone] October, Arthritis M19.90 [facility] [address] [facility] [id number] [address] [place] [phone] Sep, [facility] [address] [facility] [id number] [address] [place] [phone] Sep, Lumbar neuritis M54.16 ; Tho racic abscess J86.9 and Deficiency of other specified B group vitamins E53.8 [facility] [address] [id number] [address] [place] [phone] Sep, [facility] [address] [facility] [id number] [address] [place] [phone] Aug, Arthritis M19.90 [facility] [address] [facility] [id number] [address] [place] [phone] Aug, Hyperparathyroidism E21.3 [facility] [address] [facility] [id number] [address] [place] [phone] Aug, Hyperparathyroidism E21.3 [facility] [address] [facility] [id number] [address] [place] [phone] Aug, Arthritis M19.90 [facility] [address] [facility] [id number] [address] [place] [phone] Jul, Mass of throat R22.1 [facility] [address] [place] [id number] [address] [place] [phone] Jul, [facility] [address] [phone] Jul, Arthritis M19.90 [facility] [address] [place] [id number] [address] [place] [phone] Jun, Arthritis M19.90 [facility] [address] [place] [id number] [address] [place] [phone] Jun, [facility] [id number] [place] [phone] Jun, Renal insufficiency N28.9 an d Parathyroid abnormality E21.5 [facility] [address] [facility] [id number] [address] [place] [phone] 05 Jun, 2016 Medicare welcome exam Z00.00 ; Encounter for immunization Z23 ; Arthritis M19.90 ; Medicare annual wellness visit, initial Z00.00 ; Medicare annual wellness visit, subsequent Z00.00 and Deficiency of other specified B group vitamins E53.8 [facility] [address] [facility] [id number] [address] [place] [phone] May, Renal insufficiency N28.9 an d Parathyroid abnormality E21.5 [facility] [address] [facility] [id number] [address] [place] [phone] 19 May, 2016 Renal insufficiency N28.9 [facility] [address] [facility] [id number] [address] [place] [phone] 16 May, 2016 Renal insufficiency N28.9 [facility] [address] [facility] [id number] [address] [place] [phone] 14 May, 2016 [facility] [address] [facility] [id number] [address] [place] [phone] 16 Apr, 2016 [facility] [address] [facility] [id number] [address] [place] [phone] 16 Apr, 2016 [facility] [address] [facility] [id number] [address] [place] [phone] 14 Apr, 2016 Mass of throat R22.1 [facility] [address] [facility] [id number] [address] [place] [phone] 10 Apr, 2016 [facility] [address] [facility] [id number] [address] [place] [phone] 10 Apr, 2016 Mass of throat R22.1 [facility] [address] [facility] [id number] [address] [place] [phone] 04 Apr, 2016 Mass of throat R22.1 [facility] [address] [facility] [id number] [address] [place] [phone] 31 Mar, 2016 [facility] [address] [facility] [id number] [address] [place] [phone] Mar, [facility] [address] [facility] [id number] [address] [place] [phone] Mar, [facility] [address] [facility] [id number] [address] [place] [phone] 24 Mar, 2016 Parathyroid abnormality E21. 5 and Encounter for immunization Z23 [facility] [address] [facility] [id number] [address] [place] [phone] 17 Mar, 2016 [facility] [facility] [address] [facility] [id number] [address] [place] [id number] Mar, [facility] [address] [id number] [address] [place] [id number] 21 Feb, 2016 Renal insufficiency N28.9 an d Hyperparathyroidism E21.3 [facility] [address] [id number] [address] [place] [id number] 19 Feb, 2016 [facility] [address] [id number] [address] [place] [id number] 15 Feb, 2016 Renal insufficiency N28.9 an d Hyperparathyroidism E21.3 [facility] [address] [id number] [address] [place] [id number] 14 Feb, 2016 [facility] [address] [id number] [address] [place] [id number] 12 Feb, 2016 [facility] [address] [facility] [id number] [address] [place] [phone] Feb, [facility] [address] [facility] [id number] [address] [place] [id number] Jan, [facility] [address] [facility] [id number] [address] [place] [phone] Jan, Arthritis M19.90 ; Lumbago w ith sciatica, right side M54.41 and Other chronic pain G89.29 [facility] [address] [facility] [id number] [address] [place] [phone] Jan, [facility] [address] [facility] [id number] [address] [place] [id number] Dec, Arthritis M19.90 ; Lumbago w ith sciatica, right side M54.41 and Other chronic pain G89.29 [facility] [address] [facility] [id number] [address] [place] [phone] Nov, Deficiency of other specifie d B group vitamins E53.8 ; Primary insomnia F51.01 ; Mood disorder F39 and Lumbago with sciatica, right side M54.41 [facility] [address] [facility] [id number] [address] [place] [id number] Nov, Hyperparathyroidism E21.3 [facility] [address] [facility] [id number] [address] [place] [id number] Nov, Unspecified kidney failure N 19 and Hyperparathyroidism E21.3 [facility] [address] [facility] [id number] [address] [place] [id number] October, Hyperparathyroidism E21.3 [facility] [address] [address] October, [facility] [address] [address] October, Hyperparathyroidism E21.3 [facility] [address] [id number] October, Hyperparathyroidism E21.3 [facility] [address] [address] Sep, Hyperparathyroidism E21.3 ; Hypercholesterolemia E78.0 and Arthritis M19.90 [facility] [address] [address] Aug, [facility] [address] [address] Aug, Deficiency of other specifie d B group vitamins E53.8 [facility] [address] [place] [id number] [address] [place] [phone] Aug, [facility] [address] [address] Jul, Urinary frequency R35.0 [facility] [address] [address] Jul, Urinary frequency R35.0 [facility] [address] [place] [id number] [address] [place] [id number] Jul, [facility] [address] [address] Jul, [facility] [address] [id number] [address] [place] [phone] Jun, Pain in left knee M25.562 [facility] [address] [id number] [address] [place] [address] Jun, [facility] [address] [id number] [address] [place] [id number] May, Swelling of left knee joint M25.462 [facility] [address] [id number] [address] [place] [phone] May, [facility] [address] [id number] [address] [place] [id number] May, [facility] [address] [facility] [id number] [address] [place] [phone] May, [facility] [address] [facility] [id number] [address] [place] [phone] Apr, Renal insufficiency N28.9 an d Chronic kidney disease, stage 4 (severe) N18.4 [facility] [address] [facility] [id number] [address] [place] [phone] Apr, Unspecified kidney failure N 19 [facility] [address] [facility] [id number] [address] [place] [phone] Apr, Unspecified kidney failure N 19 [facility] [address] [facility] [id number] [address] [place] [id number] Apr, [facility] [address] [facility] [id number] [address] [place] [phone] Apr, Hyperparathyroidism, unspeci fied 252.00 [facility] [address] [facility] [id number] [address] [place] [phone] Apr, [facility] [address] [facility] [id number] [address] [place] [phone] Mar, [facility] [address] [facility] [id number] [address] [place] [id number] Mar, [facility] [address] [id number] [address] [place] [id number] Mar, Hyperparathyroidism, unspeci fied 252.00 [facility] [address] [id number] [address] [place] [phone] Feb, [facility] [address] [facility] [id number] [address] [place] [phone] Feb, Otalgia 388.70 [facility] [address] [facility] [id number] [address] [place] [phone] Feb, [facility] [address] [facility] [id number] [address] [place] [phone] Feb, [facility] [address] [facility] [id number] [address] [place] [phone] Jan, [facility] [address] [facility] [id number] [address] [place] [phone] Jan, Hyperparathyroidism, unspeci fied 252.00 [facility] [address] [id number] [address] [place] [phone] Jan, [facility] [address] [facility] [id number] [address] [place] [phone] Jan, Other B-complex deficiencies 266.2 and Hyperparathyroidism, unspecified 252.00 [facility] [address] [facility] [id number] [address] [place] [phone] Jan, [facility] [address] [facility] [id number] [address] [place] [phone] Jan, [facility] [address] [facility] [id number] [address] [place] [id number] Jan, [facility] [address] [facility] [id number] [address] [place] [id number] Dec, [facility] [address] [facility] [id number] [address] [place] [id number] Dec, [facility] [address] [id number] [address] [place] [phone] Dec, [facility] [address] [id number] [address] [place] [id number] Nov, Routine check-up V70.0 and P re-op exam V72.84 [facility] [address] [id number] [address] [place] [phone] Nov, [facility] [address] [id number] [address] [place] [phone] Nov, [facility] [address] [id number] [address] [place] [phone] October, [facility] [address] [id number] [address] [place] [phone] October, Other B-complex deficiencies 266.2 [facility] [address] [id number] [address] [place] [id number] October, [facility] [address] [id number] [address] [place] [phone] Sep, [facility] [address] [id number] [address] [place] [phone] Sep, [facility] [address] [id number] [address] [place] [phone] Aug, [facility] [address] [id number] [address] [place] [phone] Aug, [facility] [address] [id number] [address] [place] [phone] Aug, [facility] [address] [id number] [address] [place] [id number] 17 Aug, 2014 [facility] [address] [id number] [address] [place] [phone] Aug, [facility] [address] [id number] [address] [place] [id number] Aug, [facility] [address] [id number] [address] [place] [address], [place] [address] Jul, 2014 [facility] [address] [id number] [address] [place] [address], [place] [address] Jul, 2014 [facility] [address] [id number] [address] [place] [address], [place] [address] Jul, 2014 [facility] [address] [id number] [address] [place] [address], [place] [address] Jul, 2014 [facility] [address] [id number] [address] [place] [address], [place] [address] Jul, 2014 [facility] [address] [id number] [address] [place] [address], [place] [address] Jul, 2014 [facility] [address] [id number] [address] [place] [address], [place] [address] Jul, 2014 [facility] [address] [id number] [address] [place] [address], [place] [address] Jul, 2014 [facility] [address] [id number] [address] [place] [address], [place] [address] Jul, 2014 [facility] [address] [id number] [address] [place] [address], [place] [address] Jul, 2014 [facility] [address] [id number] [address] [place] [address], [place] [address] Jul, 2014 [facility] [address] [id number] [address] [place] [address], [place] [address] Jul, 2014 [facility] [address] [id number] [address] [place] [address], [place] [address] Jul, 2014 [facility] [address] [id number] [address] [place] [address], [place] [address] Jul, 2014 [facility] [address] [id number] [address] [place] [address], [place] [address] Jun, [facility] [address] [id number] [address] [place] [address], [place] [address] Jun, [facility] [address] [id number] [address] [place] [address], [place] [address] Jun, [facility] [address] [id number] [address] [place] [address], [place] [address] Jun, [facility] [address] [id number] [address] [place] [address], [place] [address] Jun, [facility] [address] [id number] [address] [place] [address], [place] [address] Jun, [facility] [address] [id number] [address] [place] [address], [place] [address] Jun, [facility] [address] [id number] [address] [place] [address], [place] [address] Jun, [facility] [address] [id number] [address] [place] [address], [place] [address] Jun, [facility] [address] [id number] [address] [place] [address], [place] [address] Jun, [facility] [address] [id number] [address] [place] [address], [place] [address] Jun, [facility] [address] [id number] [address] [place] [address], [place] [address] Jun, [facility] [address] [id number] [address] [place] [id number] Jun, [facility] [address] [id number] [address] [place] [address], [place] [address] Jun, [facility] [address] [id number] [address] [place] [address], [place] [address] May, [facility] [address] [id number] [address] [place] [address], [place] [address] May, [facility] [address] [id number] [address] [place] [id number] May, [facility] [address] [id number] [address] [place] [address], [place] [address] May, [facility] [address] [id number] [address] [place] [address], [place] [address] Apr, [facility] [address] [id number] [address] [place] [address], [place] [address] Apr, [facility] [address] [id number] [address] [place] [address], [place] [address] Apr, [facility] [address] [id number] [address] [place] [address], [place] [address] Apr, [facility] [address] [id number] [address] [place] [address], [place] [address] Apr, [facility] [address] [id number] [address] [place] [address], [place] [address] Apr, [facility] [address] [id number] [address] [place] [address], [place] [address] Mar, [facility] [address] [id number] [address] [place] [address], [place] [address] Mar, [facility] [address] [id number] [address] [place] [address], [place] [address] Mar, [facility] [address] [id number] [address] [place] [address], [place] [address] Mar, [facility] [address] [id number] [address] [place] [id number] 15 Mar, 2014 [facility] [address] [id number] [address] [place] [address], [place] [address] 15 Mar, 2014 [facility] [address] [id number] [address] [place] [phone] Mar, [facility] [address] [id number] [address] [place] [id number] Mar, [facility] [address] [id number] [address] [place] [address], [place] [address] 07 Mar, 2013 [facility] [address] [id number] [address] [place] [address], [place] [address] 07 Mar, 2013 [facility] [address] [id number] [address] [place] [address], [place] [address] 07 Mar, 2013 [facility] [address] [id number] [address] [place] [address], [place] [address] 07 Mar, 2013 [facility] [address] [id number] [address] [place] [address], [place] [address] 06 Mar, 2013 [facility] [address] [id number] [address] [place] [address], [place] [address] 26 Feb, 2013 [facility] [address] [id number] [address] [place] [address], [place] [address] 26 Feb, 2013 [facility] [address] [id number] [address] [place] [address], [place] [address] 23 Feb, 2013 [facility] [address] [id number] [address] [place] [address], [place] [address] 23 Feb, 2013 [facility] [address] [id number] [address] [place] [address], [place] [address] 19 Feb, 2013 [facility] [address] [id number] [address] [place] [address], [place] [address] 19 Feb, 2013 [facility] [address] [id number] [address] [place] [address], [place] [address] 13 Feb, 2013 [facility] [address] [id number] [address] [place] [address], [place] [address] 13 Feb, 2013 [facility] [address] [id number] [address] [place] [address], [place] [address] 12 Feb, 2013 [facility] [address] [id number] [address] [place] [address], [place] [address] 12 Feb, 2013 [facility] [address] [id number] [address] [place] [address], [place] [address] Jan, [facility] [address] [id number] [facility] [place] [address] Jan, [facility] [address] [id number] [facility] [place] [address] Dec, [facility] [address] [id number] [facility] [place] [address] Dec, [facility] [address] [id number] [address] [place] [address], [place] [address] Dec, [facility] [address] [id number] [address] [place] [address], [place] [address] Dec, [facility] [address] [id number] [address] [place] [address], [place] [address] Dec, [facility] [address] [id number] [address] [place] [address], [place] [address] Dec, [facility] [address] [id number] [address] [place] [address], [place] [address] Nov, [facility] [address] [id number] [address] [place] [address], [place] [address] Nov, [facility] [address] [id number] [address] [place] [address], [place] [address] Nov, [facility] [address] [id number] [address] [place] [address], [place] [address] Nov, [facility] [address] [id number] [address] [place] [address], [place] [address] October, [facility] [address] [id number] [address] [place] [address], [place] [address] October, [facility] [address] [id number] [address] [place] [address], [place] [address] October, [facility] [address] [id number] [address] [place] [address], [place] [address] October, [facility] [address] [id number] [address] [place] [address], [place] [address] October, [facility] [address] [id number] [address] [place] [address], [place] [address] October, [facility] [address] [id number] [address] [place] [address], [place] [address] October, [facility] [address] [id number] [address] [place] [address], [place] [address] October, [facility] [address] [id number] [address] [place] [address], [place] [address] October, [facility] [address] [id number] [address] [place] [address], [place] [address] October, [facility] [address] [id number] [address] [place] [address], [place] [address] October, [facility] [place] [address] [id number] [address] [place] [address], [place] [address] October, [facility] [address] [id number] [address] [place] [address], [place] [address] October, [facility] [address] [id number] [address] [place] [address], [place] [address] October, [facility] [address] [id number] [address] [place] [address], [place] [address] October, [facility] [address] [id number] [address] [place] [address], [place] [address] October, [facility] [address] [id number] [address] [place] [address], [place] [address] Sep, [facility] [address] [id number] [address] [place] [address], [place] [address] Sep, [facility] [address] [id number] [address] [place] [address], [place] [address] Sep, [facility] [address] [id number] [address] [place] [address], [place] [address] Sep, [facility] [address] [id number] [address] [place] [address], [place] [address] Sep, [facility] [address] [id number] [address] [place] [address], [place] [address] Sep, [facility] [address] [id number] [address] [place] [address], [place] [address] Aug, [facility] [address] [id number] [address] [place] [address], [place] [address] Aug, [facility] [address] [id number] [address] [place] [address], [place] [address] Aug, [facility] [address] [id number] [address] [place] [address], [place] [address] Aug, [facility] [address] [id number] [address] [place] [address], [place] [address] Aug, [facility] [address] [id number] [address] [place] [address], [place] [address] Aug, [facility] [address] [id number] [address] [place] [address], [place] [address] Jul, [facility] [address] [id number] [address] [place] [address], [place] [address] Jul, [facility] [address] [id number] [address] [place] [address], [place] [address] Jul, [facility] [address] [id number] [address] [place] [address], [place] [address] Jul, [facility] [address] [id number] [address] [place] [address], [place] [address] Jun, [facility] [address] [id number] [address] [place] [address], [place] [address] Jun, [facility] [address] [id number] [address] [place] [address], [place] [address] May, [facility] [address] [id number] [address] [place] [id number] 11 May, 2013 [facility] [address] [id number] [address] [place] [address], [place] [address] 10 May, 2013 [facility] [address] [id number] [address] [place] [address] May, [facility] [address] [id number] [address] [place] [address] May, [facility] [address] [id number] [address] [place] [id number] Apr, [facility] [address] [id number] [address] [place] [id number] Apr, [facility] [address] [id number] [address] [place] [address] Apr, [facility] [address] [id number] [address] [place] [id number] Apr, [facility] [address] [id number] [address] [place] [address] Apr, [facility] [address] [id number] [address] [place] [id number] 04 Apr, 2013 [facility] [address] [id number] [address] [place] [id number] 15 Mar, 2013 [facility] [address] [id number] [address] [place] [id number] 15 Mar, 2013 [facility] [address] [id number] [address] [place] [id number] 14 Mar, 2013 [facility] [address] [id number] [address] [place] [id number] 14 Mar, 2013 [facility] [address] [id number] [address] [place] [id number] 11 Mar, 2013 [facility] [address] [id number] [address] [place] [id number] 11 Mar, 2013 [facility] [address] [id number] [facility] [place] [address] Feb, [facility] [address] [id number] [address] [place] [address], [place] [address] Feb, [facility] [address] [id number] [address] [place] [address], [place] [address] Feb, [facility] [address] [address] [id number] [address] [place] [address], [place] [address] Jan, [facility] [address] [id number] [address] [place] [address], [place] [address] Jan, [facility] [address] [id number] [address] [place] [address], [place] [address] Jan, [facility] [address] [id number] [address] [place] [address], [place] [address] Jan, [facility] [address] [id number] [address] [place] [address], [place] [address] Jan, [facility] [address] [id number] [address] [place] [address], [place] [address] Jan, [facility] [address] [id number] [address] [place] [address], [place] [address] Dec, [facility] [address] [id number] [address] [place] [address], [place] [address] Dec, [facility] [address] [id number] [address] [place] [address], [place] [address] Dec, [facility] [address] [id number] [address] [place] [address], [place] [address] Dec, [facility] [address] [id number] [address] [place] [address], [place] [address] Dec, [facility] [address] [id number] [address] [place] [address], [place] [address] Dec, [facility] [address] [id number] [address] [place] [address], [place] [address] 26 Nov, 2012 [facility] [place] [address] [id number] [address] [place] [address], [place] [address] 19 Nov, 2012 [facility] [address] [id number] [address] [place] [address], [place] [address] 18 Nov, 2012 [facility] [address] [id number] [address] [place] [address], [place] [address] 13 Nov, 2012 [facility] [address] [id number] [address] [place] [address], [place] [address] Nov, [facility] [address] [id number] [address] [place] [address], [place] [address] Nov, [facility] [address] [id number] [address] [place] [address], [place] [address] October, [facility] [address] [id number] [address] [place] [address], [place] [address] October, [facility] [address] [id number] [address] [place] [address], [place] [address] October, [facility] [address] [id number] [address] [place] [address], [place] [address] October, [facility] [address] [id number] [address] [place] [address], [place] [address] October, [facility] [place] [address] [id number] [address] [place] [address], [place] [address] 30 Sep, 2012 [facility] [address] [id number] [address] [place] [address], [place] [address] Sep, [facility] [address] [id number] [address] [place] [address], [place] [address] Sep, [facility] [address] [id number] [address] [place] [address], [place] [address] 18 Sep, 2012 [facility] [address] [id number] [address] [place] [address], [place] [address] Sep, [facility] [address] [id number] [address] [place] [address], [place] [address] 26 Aug, 2012 [facility] [address] [id number] [address] [place] [address], [place] [address] 07 Aug, 2012 [facility] [address] [id number] [address] [place] [address], [place] [address] 04 Aug, 2012 [facility] [address] [id number] [address] [place] [address], [place] [address] 21 Jul, 2012 [facility] [address] [id number] [address] [place] [address], [place] [address] 20 Jul, 2012 [facility] [address] [id number] [address] [place] [address], [place] [address] 11 Jul, 2012 [facility] [address] [id number] [address] [place] [address], [place] [address] 08 Jul, 2012 [facility] [address] [id number] [address] [place] [address], [place] [address] 06 Jul, 2012 [facility] [place] [address] [id number] [address] [place] [address], [place] [address] 05 Jul, 2012 [facility] [place] [address] [id number] [address] [place] [address], [place] [address] 15 Jun, 2012 [facility] [address] [id number] [address] [place] [address], [place] [address] 16 Apr, 2012 [facility] [address] [id number] [address] [place] [address], [place] [address] 16 Apr, 2012 [facility] [address] [id number] [address] [place] [address], [place] [address] Apr, [facility] [address] [id number] [address] [place] [address], [place] [address] Apr, [facility] [address] [id number] [address] [place] [address], [place] [address] Mar, [facility] [address] [id number] [address] [place] [address], [place] [address] Mar, [facility] [address] [id number] [address] [place] [address], [place] [address] Mar, [facility] [address] [id number] [address] [place] [address], [place] [address] Mar, [facility] [address] [id number] [address] [place] [address], [place] [address] Mar, [facility] [address] [id number] [address] [place] [address], [place] [address] Feb, [facility] [address] [id number] [address] [place] [address], [place] [address] Jan, [facility] [address] [id number] [address] [place] [address], [place] [address] Jan, [facility] [address] [id number] [address] [place] [address], [place] [address] Jan, [facility] [address] [id number] [address] [place] [address], [place] [address] Dec, [facility] [address] [id number] [address] [place] [address], [place] [address] Nov, [facility] [address] [id number] [address] [place] [address], [place] [address] Nov, [facility] [address] [id number] [address] [place] [address], [place] [address] Nov, [facility] [address] [id number] [address] [place] [address] Nov, [facility] [address] [id number] [address] [place] [address], [place] [address] Nov, [facility] [address] [id number] [address] [place] [address], [place] [address] October, [facility] [address] [id number] [address] [place] [address], [place] [address] October, [facility] [address] [id number] [address] [place] [address] October, [facility] [address] [facility] [id number] [address] [place] [address] October, [facility] [address] [facility] [id number] [address] [place] [address] October, IMMUNIZATIONS No Known Immunizations SOCIAL HISTORY Never Assessed REASON FOR VISIT PLAN OF CARE VITAL SIGNS MEDICATIONS Unknown Medications RESULTS No Results PROCEDURES Procedure Date Ordered Result Body Site BASIC METABOLIC PANEL December 14, 2012 VENIPUNCT, ROUTINE* December 14, 2012 INSTRUCTIONS MEDICATIONS ADMINISTERED No Known Medications MEDICAL [...]
--- OUTSIDE RECORDS SUMMARY | 2020-01-25 08:16 | XMS REPORT ---
Author Author Velma CORDERO Organization [facility] Address [address] [place] [address] Care Team Providers Care Drafter Electrical Name Role Phone STEPHAN CORDERO Unavailable PROBLEMS Type Condition ICD9-CM Code EID38-NK Code Onset Dates Condition S tatus SNOMED Code Problem Corns L84 Active 502668544 Problem Primary insomnia F51.01 Active 397 2004 Problem Hyperparathyroidism E21.3 Active 78229310 Problem Hypercholesteremia E78.0 Active 1 2569122 Problem Mood disorder F39 Active 398027 05 Problem Arthritis M19.90 Active 0151602 Problem 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 Active 14393600 Problem Myalgia M79.1 Active 27739676 Problem Chronic kidney disease, stage 4 (severe) N18.4 Active 618552246 Problem Primary osteoarthritis of left knee M17.12 Active 252206907530098 Problem Irritable bowel syndrome with both constipation and diarrh ea K58.2 Active 57998150 Problem Other chronic pain G89.29 Active 8 5760087 Problem BPV (benign positional vertigo), bilateral H81.13 Active 715022594 Problem Hyperparathyroidism, unspecified E21.3 Active 28515756 Problem 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 Active 59062922 Problem Body mass index (BMI) of 40.0-44.9 in adult Z68.41 Active 219032126 Problem Unspecified kidney failure N19 Act chip 24976737 Problem 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 Active 895932977 Problem Unspecified inflammatory spo ndylopathy, sacral and sacrococcygeal region M46.98 Active 53772507 ALLERGIES No Information ENCOUNTERS Encounter Location Date Diagnosis [facility] [address] [facility] [id number] [address] [place] [phone] Nov, [facility] [address] [facility] [id number] [address] [place] [phone] October, [place] [address] [facility] [id number] [address] [place] [phone] October, Hyperparathyroidism, unspeci fied E21.3 [place] [address] [facility] [id number] [address] [place] [phone] October, Hyperparathyroidism, unspeci fied E21.3 [place] [address] [address] [facility] [id number] [address] [place] [phone] Sep, Hyperparathyroidism, unspeci fied E21.3 [place] [address] [address] [facility] [id number] [address] [place] [phone] Aug, Hyperparathyroidism, unspeci fied E21.3 [place] [address] [facility] [id number] [address] [place] [phone] Aug, Pain in left knee M25.562 ; Other chronic pain G89.29 ; Unspecified inflammatory spondylopathy, sacral and sacrococcygeal region M46.98 ; Chronic kidney disease, stage 4 (severe) N18.4 and Hyperparathyroidism, unspecified E21.3 [place] [address] [address] [facility] [id number] [address] [place] [phone] Jul, [place] [address] [address] [facility] [id number] [address] [place] [phone] Jul, Arthritis M19.90 [place] [address] [address] [place] [id number] [address] [place] [phone] Jun, Knee pain, left M25.562 [place] [address] [facility] [id number] [address] [place] [phone] May, Arthritis M19.90 [place] [address] [address] [facility] [id number] [address] [place] [phone] Apr, Well woman exam without gyne cological exam Z00.00 and Screening for breast cancer Z12.39 [place] [address] [facility] [id number] [address] [place] [phone] Mar, Arthritis M19.90 [facility] [address] [facility] [id number] [address] [place] [phone] Mar, Arthritis M19.90 [facility] [address] [facility] [id number] [address] [place] [phone] Mar, [facility] [address] [facility] [id number] [address] [place] [id number] Mar, Arthritis M19.90 and Encount er for immunization Z23 [facility] [address] [facility] [id number] [address] [place] [phone] 30 Feb, 2019 Arthritis M19.90 [facility] [address] [facility] [id number] [address] [place] [phone] Feb, [facility] [address] [place] [id number] [address] [place] [phone] Feb, Other specified disorders of bone density and structure, unspecified site M85.80 [facility] [address] [place] [id number] [address] [place] [phone] Jan, Arthritis M19.90 [facility] [address] [facility] [id number] [address] [place] [id number] Dec, Arthritis M19.90 [facility] [address] [facility] [id number] [address] [place] [phone] Nov, Inflammatory spondylopathy o f sacral region M46.98 [facility] [address] [place] [id number] [address] [place] [phone] Nov, [facility] [address] [facility] [id number] [address] [place] [phone] Nov, Labyrinthitis of left ear H8 3.02 [facility] [address] [facility] [id number] [address] [place] [phone] Nov, Arthritis M19.90 [facility] [address] [place] [id number] [address] [place] [phone] Sep, Arthritis M19.90 [facility] [address] [facility] [id number] [address] [place] [phone] 08 Sep, 2018 Renal insufficiency N28.9 an d Unspecified kidney failure N19 [facility] [address] [facility] [id number] [address] [place] [phone] 08 Sep, 2018 Renal insufficiency N28.9 an d Unspecified kidney failure N19 [place] [address] [facility] [id number] [address] [place] [phone] 08 Sep, 2018 Arthritis M19.90 [place] [address] [facility] [id number] [address] [place] [phone] Aug, Exercise counseling Z71.82 [place] [address] [facility] [id number] [address] [place] [phone] Aug, [place] [address] [facility] [id number] [address] [place] [phone] 27 Jul, 2018 Labyrinthitis of left ear H8 3.02 [place] [address] [facility] [id number] [address] [place] [phone] Jul, Labyrinthitis of left ear H8 3.02 [place] [address] [facility] [id number] [address] [place] [phone] 19 Jul, 2018 Exercise counseling Z71.82 [place] [address] [facility] [id number] [address] [place] [phone] 18 Jul, 2018 [place] [address] [facility] [id number] [address] [place] [phone] 14 Jul, 2018 Arthritis M19.90 [place] [address] [facility] [id number] [address] [place] [phone] 13 Jul, 2018 Encounter for Medicare annua wellness exam Z00.00 ; Chronic kidney disease, stage 4 (severe) N18.4 ; Body mass index (BMI) of 40.0-44.9 in adult Z68.41 ; Hyperparathyroidism E21.3 and BMI 40.0-44.9, adult Z68.41 [place] [address] [facility] [id number] [address] [place] [phone] 13 Jul, 2018 Encounter for Medicare wolf l wellness exam Z00.00 ; Chronic kidney disease, stage 4 (severe) N18.4 ; Hyperparathyroidism E21.3 ; Body mass index (BMI) of 40.0-44.9 in adult Z68.41 and Encounter for immunization Z23 [place] [address] [facility] [id number] [address] [place] [phone] 11 Jul, 2018 Tail bone pain M53.3 [place] [address] [facility] [id number] [address] [place] [phone] Jun, Exercise counseling Z71.82 [place] [address] [address] [place] [id number] [place] [phone] Jun, Labyrinthitis of left ear H8 3.02 [place] [address] [address] [place] [id number] [place] [phone] Jun, Tail bone pain M53.3 ; Irrit able bowel syndrome with both constipation and diarrhea K58.2 and Dysfunction of left eustachian tube H69.82 [place] [address] [address] [place] [id number] [address] [place] [phone] Jun, Exercise counseling Z71.82 [place] [address] [address] [place] [id number] [address] [place] [phone] Jun, Arthritis M19.90 [place] [address] [facility] [id number] [address] [place] [phone] Jun, Irritable bowel syndrome wit h both constipation and diarrhea K58.2 ; Tail bone pain M53.3 and Dysfunction of left eustachian tube H69.82 [place] [address] [facility] [id number] [address] [place] [phone] Jun, Exercise counseling Z71.82 [place] [address] [facility] [id number] [address] [place] [phone] Jun, Exercise counseling Z71.82 [place] [address] [id number] [address] [place] [phone] 02 Jun, 2018 Labyrinthitis of left ear H8 3.02 [facility] [address] [id number] [address] [place] [phone] May, Exercise counseling Z71.82 [facility] [address] [id number] [address] [place] [phone] May, Arthritis M19.90 [facility] [address] [id number] [address] [place] [phone] May, Exercise counseling Z71.82 [facility] [address] [id number] [address] [place] [phone] May, Exercise counseling Z71.82 [facility] [address] [id number] [address] [place] [phone] May, Labyrinthitis of left ear H8 3.02 [facility] [address] [id number] [address] [place] [phone] May, Exercise counseling Z71.82 [facility] [address] [id number] [address] [place] [phone] Apr, Arthritis M19.90 [facility] [address] [id number] [address] [place] [phone] Apr, Exercise counseling Z71.82 [facility] [address] [id number] [address] [place] [phone] Apr, Exercise counseling Z71.82 [facility] [address] [id number] [address] [place] [phone] Apr, Primary osteoarthritis of le ft knee M17.12 [facility] [address] [id number] [address] [place] [phone] Apr, Labyrinthitis of left ear H8 3.02 [facility] [address] [id number] [address] [place] [phone] Mar, Arthritis M19.90 [facility] [address] [facility] [id number] [address] [place] [id number] Mar, [facility] [address] [facility] [id number] [address] [place] [phone] Mar, Chronic kidney disease, stag e 4 (severe) N18.4 [facility] [address] [place] [id number] [place] [phone] Mar, Chronic kidney disease, stag e 4 (severe) N18.4 [facility] [address] [facility] [id number] [address] [place] [phone] Mar, Labyrinthitis of left ear H8 3.02 [facility] [address] [place] [id number] [address] [place] [phone] Mar, Chronic kidney disease, stag e 4 (severe) N18.4 ; Knee pain, left anterior M25.562 ; Deficiency of other specified B group vitamins E53.8 and Encounter for immunization Z23 [facility] [address] [place] [id number] [address] [place] [phone] Mar, Arthritis M19.90 [facility] [address] [place] [id number] [address] [place] [phone] Feb, Labyrinthitis of left ear H8 3.02 [facility] [address] [place] [id number] [address] [place] [id number] Feb, Arthritis M19.90 [facility] [address] [facility] [id number] [address] [place] [phone] Jan, Labyrinthitis of left ear H8 3.02 [facility] [address] [facility] [id number] [address] [place] [phone] Jan, Arthritis M19.90 [facility] [address] [place] [id number] [address] [place] [phone] Dec, Labyrinthitis of left ear H8 3.02 [place] [address] [facility] [id number] [address] [place] [phone] Nov, Arthritis M19.90 [place] [address] [facility] [id number] [address] [place] [phone] Nov, Labyrinthitis of left ear H8 3.02 [place] [address] [place] [id number] [address] [place] [phone] Nov, BMI 40.0-44.9, adult Z68.41 ; Chronic kidney disease, stage 4 (severe) N18.4 and Acute right-sided thoracic back pain M54.6 [place] [address] [place] [id number] [place] [phone] October, Labyrinthitis of left ear H8 3.02 and Arthritis M19.90 [place] [address] [address] [place] [id number] [address] [place] [phone] Sep, BPV (benign positional verti go), bilateral H81.13 ; Dysfunction of left eustachian tube H69.82 and BMI 40.0-44.9, adult Z68.41 [place] [address] [place] [id number] [place] [address] Sep, Labyrinthitis of left ear H8 3.02 and Arthritis M19.90 [place] [address] [place] [id number] [address] [place] [phone] Sep, [place] [address] [place] [id number] [address] [place] [phone] Sep, [place] [address] [place] [id number] [address] [place] [phone] Sep, Chronic kidney disease, stag e 4 (severe) N18.4 [place] [address] [place] [id number] [address] [place] [phone] Sep, Chronic kidney disease, stag e 4 (severe) N18.4 [place] [address] [place] [id number] [address] [place] [address] Aug, Labyrinthitis of left ear H8 3.02 and Arthritis M19.90 [facility] [address] [facility] [id number] [address] [place] [phone] Aug, [facility] [address] [id number] [address] [place] [phone] Jul, [facility] [address] [facility] [id number] [address] [place] [phone] Jul, Arthritis M19.90 and Labyrin thitis of left ear H83.02 [facility] [address] [id number] [address] [place] [phone] Jul, [facility] [address] [facility] [id number] [address] [place] [phone] Jun, [facility] [address] [facility] [id number] [address] [place] [id number] Jun, Arthritis M19.90 and Labyrin thitis of left ear H83.02 [facility] [address] [facility] [id number] [address] [place] [phone] Jun, Pre-op evaluation Z01.818 ; BMI 40.0-44.9, adult Z68.41 and Encounter for immunization Z23 [facility] [address] [facility] [id number] [address] [place] [address] May, Arthritis M19.90 and Labyrin thitis of left ear H83.02 [facility] [address] [facility] [id number] [address] [place] [phone] Apr, Labyrinthitis of left ear H8 3.02 [facility] [address] [facility] [id number] [address] [place] [phone] Apr, Arthritis M19.90 and Labyrin thitis of left ear H83.02 [facility] [address] [facility] [id number] [address] [place] [phone] Mar, Arthritis M19.90 and Labyrin thitis of left ear H83.02 [facility] [address] [id number] [address] [place] [phone] 05 Mar, 2017 Chronic kidney disease, stag e 4 (severe) N18.4 [facility] [address] [id number] [address] [place] [phone] 06 Feb, 2017 Arthritis M19.90 and Labyrin thitis of left ear H83.02 [facility] [address] [id number] [address] [place] [id number] 10 Jan, 2017 Labyrinthitis of left ear H8 3.02 and Deficiency of other specified B group vitamins E53.8 [facility] [address] [id number] [address] [place] [id number] Dec, Arthritis M19.90 [facility] [address] [id number] [address] [place] [phone] Dec, BPV (benign positional verti go), bilateral H81.13 [facility] [address] [id number] [address] [place] [phone] Dec, [facility] [address] [id number] [address] [place] [phone] Dec, [facility] [address] [facility] [id number] [address] [place] [address] Dec, [facility] [address] [id number] [address] [place] [phone] Nov, Arthritis M19.90 and Deficie ncy of other specified B group vitamins E53.8 [facility] [address] [id number] [address] [place] [phone] Nov, Arthritis M19.90 [facility] [address] [id number] [address] [place] [phone] Nov, Hyperparathyroidism E21.3 [facility] [address] [facility] [id number] [address] [place] [phone] October, [facility] [address] [facility] [id number] [address] [place] [phone] October, Hyperparathyroidism E21.3 [facility] [address] [facility] [id number] [address] [place] [phone] October, [facility] [address] [facility] [id number] [address] [place] [phone] October, Renal insufficiency N28.9 an d Hyperparathyroidism E21.3 [facility] [address] [facility] [id number] [address] [place] [phone] October, [facility] [address] [facility] [id number] [address] [place] [phone] October, Renal insufficiency N28.9 an d Hyperparathyroidism E21.3 [facility] [address] [facility] [id number] [address] [place] [phone] October, Arthritis M19.90 [facility] [address] [facility] [id number] [address] [place] [phone] Sep, [facility] [address] [facility] [id number] [address] [place] [phone] Sep, Lumbar neuritis M54.16 ; Tho racic abscess J86.9 and Deficiency of other specified B group vitamins E53.8 [facility] [address] [facility] [id number] [address] [place] [phone] Sep, [facility] [address] [facility] [id number] [address] [place] [phone] Aug, Arthritis M19.90 [facility] [address] [facility] [id number] [address] [place] [phone] Aug, Hyperparathyroidism E21.3 [facility] [address] [facility] [id number] [address] [place] [phone] Aug, Hyperparathyroidism E21.3 [facility] [address] [place] [id number] [address] [place] [phone] Aug, Arthritis M19.90 [facility] [address] [facility] [id number] [address] [place] [phone] Jul, Mass of throat R22.1 [facility] [address] [facility] [id number] [address] [place] [id number] Jul, [facility] [address] [facility] [id number] [address] [place] [phone] Jul, Arthritis M19.90 [facility] [address] [facility] [id number] [address] [place] [phone] Jun, Arthritis M19.90 [facility] [address] [place] [id number] [address] [place] [phone] Jun, [facility] [address] [facility] [id number] [address] [place] [phone] Jun, Renal insufficiency N28.9 an d Parathyroid abnormality E21.5 [facility] [address] [facility] [id number] [address] [place] [phone] 05 Jun, 2016 Medicare welcome exam Z00.00 ; Encounter for immunization Z23 ; Arthritis M19.90 ; Medicare annual wellness visit, initial Z00.00 ; Medicare annual wellness visit, subsequent Z00.00 and Deficiency of other specified B group vitamins E53.8 [facility] [address] [facility] [id number] [address] [place] [phone] May, Renal insufficiency N28.9 an d Parathyroid abnormality E21.5 [facility] [address] [facility] [id number] [address] [place] [phone] May, Renal insufficiency N28.9 [facility] [address] [facility] [id number] [address] [place] [phone] May, Renal insufficiency N28.9 [facility] [address] [facility] [id number] [address] [place] [phone] May, [facility] [address] [place] [id number] [address] [place] [phone] Apr, [facility] [address] [id number] [address] [place] [phone] 16 Apr, 2016 [facility] [address] [id number] [address] [place] [phone] 14 Apr, 2016 Mass of throat R22.1 [facility] [address] [id number] [address] [place] [phone] 10 Apr, 2016 [facility] [address] [id number] [address] [place] [phone] 10 Apr, 2016 Mass of throat R22.1 [facility] [address] [id number] [address] [place] [phone] 04 Apr, 2016 Mass of throat R22.1 [facility] [address] [id number] [address] [place] [phone] Mar, [facility] [address] [id number] [address] [place] [address] Mar, [facility] [address] [id number] [address] [place] [address] Mar, [facility] [address] [facility] [id number] [address] [place] [phone] 24 Mar, 2016 Parathyroid abnormality E21. 5 and Encounter for immunization Z23 [facility] [address] [facility] [id number] [address] [place] [phone] 17 Mar, 2016 [facility] [address] [facility] [id number] [address] [place] [phone] Mar, [facility] [address] [facility] [id number] [address] [place] [phone] 21 Feb, 2016 Renal insufficiency N28.9 an d Hyperparathyroidism E21.3 [facility] [address] [id number] [address] [place] [phone] 19 Feb, 2016 [facility] [address] [facility] [id number] [address] [place] [phone] 15 Feb, 2016 Renal insufficiency N28.9 an d Hyperparathyroidism E21.3 [facility] [address] [facility] [id number] [address] [place] [phone] 14 Feb, 2016 [facility] [address] [place] [id number] [address] [place] [address] Feb, [facility] [address] [place] [id number] [address] [place] [address] Feb, [place] [address] [place] [id number] [place] [address] Jan, [place] [address] [place] [id number] [place] [address] Jan, Arthritis M19.90 ; Lumbago w ith sciatica, right side M54.41 and Other chronic pain G89.29 [place] [address] [address] Jan, [place] [address] [address] Dec, Arthritis M19.90 ; Lumbago w ith sciatica, right side M54.41 and Other chronic pain G89.29 [place] [address] [address] Nov, Deficiency of other specifie d B group vitamins E53.8 ; Primary insomnia F51.01 ; Mood disorder F39 and Lumbago with sciatica, right side M54.41 [place] [address] [place] [id number] [address] [place] [address] Nov, Hyperparathyroidism E21.3 [place] [address] [place] [id number] [place] [address] Nov, Unspecified kidney failure N 19 and Hyperparathyroidism E21.3 [place] [address] [place] [id number] [address] [place] [address] October, Hyperparathyroidism E21.3 [place] [address] [place] [id number] [place] [address] October, [facility] [address] [place] [id number] [address] [place] [address] October, Hyperparathyroidism E21.3 [facility] [address] [place] [id number] [place] [address] October, Hyperparathyroidism E21.3 [facility] [address] [address] Sep, Hyperparathyroidism E21.3 ; Hypercholesterolemia E78.0 and Arthritis M19.90 [facility] [address] [place] [id number] [place] [address] Aug, [facility] [address] [address] Aug, Deficiency of other specifie d B group vitamins E53.8 [facility] [address] [address] Aug, [facility] [address] [address] Jul, Urinary frequency R35.0 [facility] [address] [id number] Jul, Urinary frequency R35.0 [facility] [address] [place] [id number] [place] [address] Jul, [facility] [address] [phone] Jul, [facility] [address] [place] [id number] [address] [place] [phone] Jun, Pain in left knee M25.562 [facility] [address] [place] [id number] [address] [place] [address] Jun, [facility] [address] [place] [id number] [address] [place] [address] May, Swelling of left knee joint M25.462 [facility] [address] [id number] [address] [place] [address] May, [facility] [address] [facility] [id number] [address] [place] [phone] May, [facility] [address] [facility] [id number] [address] [place] [address] May, [facility] [address] [facility] [id number] [address] [place] [address] Apr, Renal insufficiency N28.9 an d Chronic kidney disease, stage 4 (severe) N18.4 [facility] [address] [facility] [id number] [address] [place] [address] Apr, Unspecified kidney failure N 19 [facility] [address] [facility] [id number] [address] [place] [address] Apr, Unspecified kidney failure N 19 [facility] [address] [facility] [id number] [address] [place] [id number] Apr, [facility] [address] [facility] [id number] [address] [place] [address] Apr, Hyperparathyroidism, unspeci fied 252.00 [facility] [address] [facility] [id number] [address] [place] [id number] Apr, [facility] [address] [facility] [id number] [address] [place] [phone] Mar, [facility] [address] [facility] [id number] [address] [place] [phone] Mar, [facility] [address] [facility] [id number] [address] [place] [address] Mar, Hyperparathyroidism, unspeci fied 252.00 [facility] [address] [facility] [id number] [address] [place] [address] Feb, [facility] [address] [facility] [id number] [address] [place] [address] Feb, Otalgia 388.70 [facility] [address] [id number] [address] [place] [phone] Feb, [facility] [address] [facility] [id number] [address] [place] [phone] Feb, [facility] [address] [facility] [id number] [address] [place] [phone] Jan, [facility] [address] [id number] [address] [place] [address] Jan, Hyperparathyroidism, unspeci fied 252.00 [facility] [address] [id number] [address] [place] [address] Jan, [facility] [address] [facility] [id number] [address] [place] [phone] Jan, Other B-complex deficiencies 266.2 and Hyperparathyroidism, unspecified 252.00 [facility] [address] [id number] [address] [place] [phone] Jan, [facility] [address] [facility] [id number] [address] [place] [phone] Jan, [facility] [address] [facility] [id number] [address] [place] [phone] Jan, [facility] [address] [facility] [id number] [address] [place] [phone] Dec, [facility] [address] [facility] [id number] [address] [place] [phone] Dec, [facility] [address] [facility] [id number] [address] [place] [id number] Dec, [facility] [address] [facility] [id number] [address] [place] [address] Nov, Routine check-up V70.0 and P re-op exam V72.84 [facility] [address] [id number] [address] [place] [address] Nov, [facility] [address] [id number] [address] [place] [address], [place] [address] Nov, [facility] [address] [id number] [address] [place] [address], [place] [address] October, [facility] [address] [id number] [address] [place] [address], [place] [address] October, Other B-complex deficiencies 266.2 [facility] [address] [id number] [address] [place] [address], [place] [address] October, [facility] [address] [id number] [address] [place] [address], [place] [address] Sep, [facility] [address] [id number] [address] [place] [address], [place] [address] Sep, [facility] [address] [id number] [address] [place] [address], [place] [address] Aug, [facility] [address] [id number] [address] [place] [phone] Aug, [facility] [address] [id number] [address] [place] [address], [place] [address] Aug, [facility] [address] [id number] [address] [place] [phone] Aug, [facility] [address] [id number] [address] [place] [id number] Aug, [facility] [address] [id number] [address] [place] [phone] Aug, [facility] [address] [id number] [address] [place] [address], [place] [address] Jul, [facility] [address] [id number] [address] [place] [phone] Jul, [facility] [address] [id number] [address] [place] [phone] 17 Jul, 2014 [facility] [address] [id number] [address] [place] [address], [place] [address] Jul, 2014 [facility] [address] [id number] [address] [place] [address], [place] [address] Jul, 2014 [facility] [address] [id number] [address] [place] [address], [place] [address] Jul, 2014 [facility] [address] [id number] [address] [place] [address], [place] [address] Jul, 2014 [facility] [address] [id number] [address] [place] [address], [place] [address] Jul, 2014 [facility] [address] [id number] [address] [place] [address], [place] [address] Jul, 2014 [facility] [address] [id number] [address] [place] [address], [place] [address] Jul, 2014 [facility] [address] [id number] [address] [place] [address], [place] [address] Jul, 2014 [facility] [address] [id number] [address] [place] [address], [place] [address] Jul, 2014 [facility] [address] [id number] [address] [place] [address], [place] [address] Jul, [facility] [address] [id number] [address] [place] [address], [place] [address] Jul, [facility] [address] [id number] [address] [place] [phone] Jun, [facility] [address] [id number] [address] [place] [address], [place] [address] Jun, [facility] [address] [id number] [address] [place] [address], [place] [address] Jun, [facility] [address] [id number] [address] [place] [phone] Jun, [facility] [address] [id number] [address] [place] [phone] Jun, [facility] [address] [id number] [address] [place] [address], [place] [address] Jun, [facility] [address] [id number] [address] [place] [address], [place] [address] Jun, [facility] [address] [id number] [address] [place] [address], [place] [address] Jun, [facility] [address] [id number] [address] [place] [address], [place] [address] Jun, [facility] [address] [id number] [address] [place] [address], [place] [address] Jun, [facility] [address] [id number] [address] [place] [address], [place] [address] Jun, [facility] [address] [id number] [address] [place] [address], [place] [address] Jun, [facility] [address] [id number] [address] [place] [address], [place] [address] Jun, [facility] [address] [id number] [address] [place] [address], [place] [address] Jun, [facility] [address] [id number] [address] [place] [address], [place] [address] May, [facility] [address] [id number] [address] [place] [address], [place] [address] May, [facility] [address] [id number] [address] [place] [address], [place] [address] May, [facility] [address] [id number] [address] [place] [address], [place] [address] May, [facility] [address] [id number] [address] [place] [address], [place] [address] Apr, [facility] [address] [id number] [address] [place] [address], [place] [address] Apr, [facility] [address] [id number] [address] [place] [address], [place] [address] Apr, [facility] [address] [id number] [address] [place] [address], [place] [address] Apr, [facility] [address] [id number] [address] [place] [address], [place] [address] Apr, [facility] [address] [id number] [address] [place] [address], [place] [address] Apr, [facility] [address] [id number] [address] [place] [address], [place] [address] Mar, [facility] [address] [id number] [address] [place] [address], [place] [address] Mar, [facility] [address] [id number] [address] [place] [address], [place] [address] Mar, [facility] [address] [id number] [address] [place] [address], [place] [address] Mar, [facility] [address] [id number] [address] [place] [address], [place] [address] Mar, [facility] [address] [id number] [address] [place] [address], [place] [address] Mar, [facility] [address] [id number] [address] [place] [address], [place] [address] Mar, [facility] [address] [id number] [address] [place] [address], [place] [address] Mar, [facility] [address] [id number] [address] [place] [address], [place] [address] Mar, [facility] [address] [id number] [address] [place] [address], [place] [address] Mar, [facility] [address] [id number] [address] [place] [address], [place] [address] Mar, [facility] [address] [id number] [address] [place] [address], [place] [address] Mar, [facility] [address] [id number] [address] [place] [address], [place] [address] Mar, [facility] [address] [id number] [address] [place] [address], [place] [address] Feb, [facility] [address] [id number] [address] [place] [address], [place] [address] Feb, [facility] [address] [id number] [address] [place] [address], [place] [address] Feb, [facility] [address] [id number] [address] [place] [address], [place] [address] Feb, [facility] [address] [id number] [address] [place] [address], [place] [address] Feb, [facility] [address] [id number] [address] [place] [address], [place] [address] Feb, [facility] [address] [id number] [address] [place] [address], [place] [address] Feb, [facility] [address] [id number] [address] [place] [address], [place] [address] Feb, [facility] [address] [id number] [address] [place] [address], [place] [address] Feb, [facility] [address] [id number] [address] [place] [address], [place] [address] Feb, [facility] [address] [id number] [address] [place] [address], [place] [address] Jan, [facility] [address] [id number] [address] [place] [address], [place] [address] Jan, [facility] [address] [id number] [address] [place] [address], [place] [address] Dec, [facility] [address] [id number] [address] [place] [address], [place] [address] Dec, [facility] [address] [id number] [address] [place] [address], [place] [address] Dec, [facility] [address] [id number] [facility] [place] [address] Dec, [facility] [address] [id number] [facility] [place] [address] Dec, [facility] [address] [id number] [address] [place] [address], [place] [address] Dec, [facility] [address] [id number] [address] [place] [address], [place] [address] Nov, [facility] [address] [id number] [address] [place] [address], [place] [address] Nov, [facility] [address] [id number] [address] [place] [address], [place] [address] Nov, [facility] [address] [id number] [address] [place] [address], [place] [address] Nov, [facility] [address] [id number] [address] [place] [address], [place] [address] October, [facility] [address] [id number] [address] [place] [address], [place] [address] October, [facility] [address] [id number] [address] [place] [address], [place] [address] October, [facility] [address] [id number] [address] [place] [address], [place] [address] October, [facility] [address] [id number] [address] [place] [address], [place] [address] October, [facility] [address] [id number] [address] [place] [address], [place] [address] October, [facility] [address] [id number] [address] [place] [address], [place] [address] October, [facility] [address] [id number] [address] [place] [address], [place] [address] October, [facility] [address] [id number] [address] [place] [address], [place] [address] October, [facility] [address] [id number] [address] [place] [address], [place] [address] October, [facility] [address] [id number] [address] [place] [address], [place] [address] October, [facility] [address] [id number] [address] [place] [address], [place] [address] October, [facility] [address] [id number] [address] [place] [address], [place] [address] October, [facility] [address] [id number] [address] [place] [address], [place] [address] October, [facility] [address] [id number] [address] [place] [address], [place] [address] October, [facility] [address] [id number] [address] [place] [address], [place] [address] October, [facility] [address] [id number] [address] [place] [address], [place] [address] Sep, [facility] [address] [id number] [address] [place] [address], [place] [address] Sep, [facility] [address] [id number] [address] [place] [address], [place] [address] Sep, [facility] [address] [id number] [address] [place] [address], [place] [address] Sep, [facility] [address] [id number] [address] [place] [address], [place] [address] Sep, [facility] [address] [id number] [address] [place] [address], [place] [address] Sep, [facility] [address] [id number] [address] [place] [address], [place] [address] Aug, [facility] [address] [id number] [address] [place] [address], [place] [address] Aug, [facility] [address] [id number] [facility] [place] [address] Aug, [facility] [address] [id number] [address] [place] [address], [place] [address] Aug, [facility] [address] [id number] [address] [place] [address], [place] [address] Aug, [facility] [address] [id number] [address] [place] [address], [place] [address] Aug, [facility] [address] [id number] [address] [place] [address], [place] [address] Jul, [facility] [address] [id number] [address] [place] [address], [place] [address] Jul, [facility] [address] [id number] [address] [place] [address], [place] [address] Jul, [facility] [address] [id number] [address] [place] [address], [place] [address] Jul, [facility] [address] [id number] [address] [place] [address], [place] [address] Jun, [facility] [address] [id number] [address] [place] [address], [place] [address] Jun, [facility] [address] [id number] [address] [place] [address], [place] [address] May, [facility] [address] [id number] [address] [place] [address], [place] [address] May, [facility] [address] [id number] [address] [place] [address], [place] [address] May, [facility] [address] [id number] [address] [place] [address], [place] [address] May, [facility] [address] [id number] [address] [place] [address], [place] [address] May, [facility] [address] [id number] [address] [place] [address], [place] [address] 13 Apr, 2013 [facility] [address] [id number] [address] [place] [address], [place] [address] 13 Apr, 2013 [facility] [address] [id number] [address] [place] [address], [place] [address] Apr, [facility] [address] [id number] [address] [place] [address], [place] [id number] Apr, [facility] [address] [id number] [address] [place] [address], [place] [address] Apr, [facility] [address] [id number] [address] [place] [address], [place] [address] 04 Apr, 2013 [facility] [address] [id number] [address] [place] [address], [place] [address] 15 Mar, 2013 [facility] [address] [id number] [address] [place] [address], [place] [address] 15 Mar, 2013 [facility] [address] [id number] [address] [place] [address], [place] [address] 14 Mar, 2013 [facility] [address] [id number] [address] [place] [address], [place] [address] 14 Mar, 2013 [facility] [address] [id number] [address] [place] [address], [place] [address] 11 Mar, 2013 [facility] [address] [id number] [address] [place] [address], [place] [address] 11 Mar, 2013 [facility] [address] [id number] [address] [place] [address], [place] [address] 23 Feb, 2013 [facility] [address] [id number] [address] [place] [address], [place] [address] 19 Feb, 2013 [facility] [address] [id number] [address] [place] [address], [place] [address] 04 Feb, 2013 [facility] [address] [id number] [address] [place] [address], [place] [address] Jan, [facility] [address] [id number] [address] [place] [address], [place] [address] Jan, [facility] [address] [id number] [address] [place] [address], [place] [address] Jan, [facility] [address] [id number] [address] [place] [address], [place] [address] Jan, [facility] [address] [id number] [address] [place] [address], [place] [address] Jan, [facility] [address] [id number] [address] [place] [address], [place] [address] Jan, [facility] [address] [id number] [address] [place] [address], [place] [address] Dec, [facility] [address] [id number] [address] [place] [address], [place] [address] Dec, [facility] [address] [id number] [address] [place] [address], [place] [address] Dec, [facility] [address] [id number] [address] [place] [address], [place] [address] Dec, [facility] [address] [id number] [address] [place] [address], [place] [address] Dec, [facility] [address] [id number] [address] [place] [address], [place] [address] Dec, [facility] [address] [id number] [address] [place] [address], [place] [address] Nov, [facility] [address] [id number] [address] [place] [address], [place] [address] Nov, [facility] [address] [id number] [address] [place] [address], [place] [address] Nov, [facility] [address] [id number] [address] [place] [address], [place] [address] Nov, [facility] [address] [id number] [address] [place] [address], [place] [address] Nov, [facility] [address] [id number] [address] [place] [address], [place] [address] Nov, [facility] [address] [id number] [address] [place] [address], [place] [address] October, [facility] [address] [id number] [address] [place] [address], [place] [address] October, [facility] [address] [id number] [address] [place] [address], [place] [address] October, [facility] [address] [id number] [address] [place] [address], [place] [address] October, [facility] [address] [id number] [address] [place] [address], [place] [address] October, [facility] [address] [id number] [address] [place] [address], [place] [address] Sep, [facility] [address] [id number] [address] [place] [address], [place] [address] Sep, [facility] [address] [id number] [address] [place] [address], [place] [address] Sep, [facility] [address] [id number] [address] [place] [address], [place] [address] Sep, [facility] [address] [id number] [address] [place] [address], [place] [address] Sep, [facility] [address] [id number] [address] [place] [address], [place] [address] Aug, [facility] [address] [id number] [address] [place] [address], [place] [address] Aug, [facility] [address] [id number] [address] [place] [address], [place] [address] Aug, [facility] [address] [id number] [address] [place] [address], [place] [address] Jul, [facility] [address] [id number] [address] [place] [address], [place] [address] Jul, 2012 [facility] [address] [id number] [address] [place] [address], [place] [address] Jul, 2012 [facility] [address] [id number] [address] [place] [address], [place] [address] 08 Jul, 2012 [facility] [address] [id number] [address] [place] [address], [place] [address] Jul, [facility] [address] [id number] [address] [place] [address], [place] [address] Jul, [facility] [address] [id number] [address] [place] [address], [place] [address] Jun, [facility] [address] [id number] [address] [place] [address], [place] [address] Apr, [facility] [address] [id number] [address] [place] [address] Apr, [facility] [address] [id number] [address] [place] [address], [place] [address] Apr, [facility] [address] [id number] [address] [place] [address] Apr, [facility] [address] [id number] [address] [place] [address] Mar, [facility] [address] [id number] [address] [place] [address] Mar, [facility] [address] [id number] [address] [place] [address] Mar, [facility] [address] [id number] [address] [place] [id number] Mar, [facility] [address] [id number] [address] [place] [id number] Mar, [facility] [address] [id number] [address] [place] [phone] Feb, [facility] [address] [id number] [address] [place] [phone] Jan, [facility] [address] [id number] [address] [place] [phone] Jan, [facility] [address] [id number] [address] [place] [address] Jan, [facility] [address] [id number] [address] [place] [address] Dec, [facility] [address] [id number] [address] [place] [phone] Nov, [facility] [address] [id number] [address] [place] [phone] Nov, [facility] [address] [id number] [address] [place] [id number] Nov, [facility] [address] [id number] [address] [place] [phone] Nov, [facility] [address] [id number] [address] [place] [phone] Nov, [facility] [address] [id number] [address] [place] [id number] October, [facility] [address] [id number] [address] [place] [phone] October, [facility] [address] [id number] [address] [place] [phone] October, [facility] [address] [id number] [address] [place] [phone] October, [facility] [address] [id number] [address] [place] [id number] October, IMMUNIZATIONS No Known Immunizations SOCIAL HISTORY [...]
--- OUTSIDE RECORDS SUMMARY | 2020-01-25 08:16 | XMS REPORT ---
Author Author Velma CORDERO Organization [facility] Address [address] [place] [address] Care Team Providers Care Traffic Representative Name Role Phone STEPHAN CORDERO Unavailable PROBLEMS Type Condition ICD9-CM Code AGL42-YO Code Onset Dates Condition S tatus SNOMED Code Problem Corns L84 Active 581271834 Problem Primary insomnia F51.01 Active 397 2004 Problem Hyperparathyroidism E21.3 Active 64371680 Problem Hypercholesteremia E78.0 Active 1 6119190 Problem Mood disorder F39 Active 376593 05 Problem Arthritis M19.90 Active 3782729 Problem 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 Active 96644433 Problem Myalgia M79.1 Active 55411596 Problem Chronic kidney disease, stage 4 (severe) N18.4 Active 545489633 Problem Primary osteoarthritis of left knee M17.12 Active 582219941958925 Problem Irritable bowel syndrome with both constipation and diarrh ea K58.2 Active 93288452 Problem Other chronic pain G89.29 Active 8 5129457 Problem BPV (benign positional vertigo), bilateral H81.13 Active 210561196 Problem Hyperparathyroidism, unspecified E21.3 Active 50375677 Problem 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 Active 63764176 Problem Body mass index (BMI) of 40.0-44.9 in adult Z68.41 Active 309455957 Problem Unspecified kidney failure N19 Act chip 01808051 Problem 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 Active 249476294 Problem Unspecified inflammatory spo ndylopathy, sacral and sacrococcygeal region M46.98 Active 34095486 ALLERGIES No Information ENCOUNTERS Encounter Location Date Diagnosis [facility] [address] [facility] [id number] [address] [place] [phone] Nov, Hyperparathyroidism, unspeci fied E21.3 [facility] [address] [facility] [id number] [address] [place] [id number] Nov, Chronic kidney disease, stag e 4 (severe) N18.4 ; Hyperparathyroidism, unspecified E21.3 and Left otitis media with effusion H65.92 [place] [address] [facility] [id number] [address] [place] [address] Nov, Hyperparathyroidism, unspeci fied E21.3 [place] [address] [facility] [id number] [address] [place] [phone] October, [place] [address] [facility] [id number] [address] [place] [address] October, Hyperparathyroidism, unspeci fied E21.3 [place] [address] [place] [id number] [address] [place] [address] October, Hyperparathyroidism, unspeci fied E21.3 [place] [address] [place] [id number] [address] [place] [address] Sep, Hyperparathyroidism, unspeci fied E21.3 [place] [address] [facility] [id number] [address] [place] [address] Aug, Hyperparathyroidism, unspeci fied E21.3 [place] [address] [place] [id number] [address] [place] [address] Aug, Pain in left knee M25.562 ; Other chronic pain G89.29 ; Unspecified inflammatory spondylopathy, sacral and sacrococcygeal region M46.98 ; Chronic kidney disease, stage 4 (severe) N18.4 and Hyperparathyroidism, unspecified E21.3 [place] [address] [facility] [id number] [address] [place] [address] Jul, [place] [address] [place] [id number] [address] [place] [address] Jul, Arthritis M19.90 [place] [address] [facility] [id number] [address] [place] [address] Jun, Knee pain, left M25.562 [place] [address] [place] [id number] [address] [place] [address] May, Arthritis M19.90 [facility] [address] [facility] [id number] [address] [place] [address] Apr, Well woman exam without gyne cological exam Z00.00 and Screening for breast cancer Z12.39 [facility] [address] [facility] [id number] [address] [place] [address] Mar, Arthritis M19.90 [facility] [address] [facility] [id number] [address] [place] [address] Mar, Arthritis M19.90 [facility] [address] [place] [id number] [address] [place] [phone] Mar, [facility] [address] [place] [id number] [address] [place] [address] Mar, Arthritis M19.90 and Encount er for immunization Z23 [facility] [address] [facility] [id number] [address] [place] [address] Feb, Arthritis M19.90 [facility] [address] [facility] [id number] [address] [place] [phone] Feb, [facility] [address] [place] [id number] [address] [place] [address] Feb, Other specified disorders of bone density and structure, unspecified site M85.80 [facility] [address] [facility] [id number] [address] [place] [address] Jan, Arthritis M19.90 [facility] [address] [facility] [id number] [address] [place] [address] Dec, Arthritis M19.90 [facility] [address] [facility] [id number] [address] [place] [address] Nov, Inflammatory spondylopathy o f sacral region M46.98 [facility] [address] [place] [id number] [address] [place] [address] Nov, [facility] [address] [facility] [id number] [address] [place] [address] Nov, Labyrinthitis of left ear H8 3.02 [facility] [address] [facility] [id number] [address] [place] [address] 03 Nov, 2018 Arthritis M19.90 [facility] [address] [facility] [id number] [address] [place] [id number] 15 Sep, 2018 Arthritis M19.90 [facility] [address] [facility] [id number] [address] [place] [address] Sep, Renal insufficiency N28.9 an d Unspecified kidney failure N19 [facility] [address] [facility] [id number] [address] [place] [address] Sep, Renal insufficiency N28.9 an d Unspecified kidney failure N19 [facility] [address] [facility] [id number] [address] [place] [address] Sep, Arthritis M19.90 [facility] [address] [facility] [id number] [address] [place] [address] Aug, Exercise counseling Z71.82 [facility] [address] [facility] [id number] [address] [place] [phone] Aug, [facility] [address] [facility] [id number] [address] [place] [phone] Jul, Labyrinthitis of left ear H8 3.02 [facility] [address] [facility] [id number] [address] [place] [address] Jul, Labyrinthitis of left ear H8 3.02 [facility] [address] [facility] [id number] [address] [place] [address] Jul, Exercise counseling Z71.82 [facility] [address] [facility] [id number] [address] [place] [phone] Jul, [facility] [address] [facility] [id number] [address] [place] [phone] 14 Jul, 2018 Arthritis M19.90 [place] [id number] [facility] [id number] [address] [place] [address] 13 Jul, 2018 Encounter for Medicare annua l wellness exam Z00.00 ; Chronic kidney disease, stage 4 (severe) N18.4 ; Body mass index (BMI) of 40.0-44.9 in adult Z68.41 ; Hyperparathyroidism E21.3 and BMI 40.0-44.9, adult Z68.41 [place] [address] [facility] [id number] [address] [place] [address] 13 Jul, 2018 Encounter for Medicare annua l wellness exam Z00.00 ; Chronic kidney disease, stage 4 (severe) N18.4 ; Hyperparathyroidism E21.3 ; Body mass index (BMI) of 40.0-44.9 in adult Z68.41 and Encounter for immunization Z23 [place] [address] [place] [id number] [address] [place] [address] 11 Jul, 2018 Tail bone pain M53.3 [place] [address] [place] [id number] [address] [place] [address] 29 Jun, 2018 Exercise counseling Z71.82 [place] [address] [place] [id number] [place] [phone] Jun, Labyrinthitis of left ear H8 3.02 [place] [address] [place] [id number] [address] [place] [address] Jun, Tail bone pain M53.3 ; Irrit able bowel syndrome with both constipation and diarrhea K58.2 and Dysfunction of left eustachian tube H69.82 [place] [address] [facility] [id number] [address] [place] [address] Jun, Exercise counseling Z71.82 [place] [address] [place] [id number] [address] [place] [phone] Jun, Arthritis M19.90 [place] [address] [place] [id number] [address] [place] [address] Jun, Irritable bowel syndrome wit h both constipation and diarrhea K58.2 ; Tail bone pain M53.3 and Dysfunction of left eustachian tube H69.82 [facility] [address] [id number] [address] [place] [address] Jun, Exercise counseling Z71.82 [facility] [address] [id number] [address] [place] [address] Jun, Exercise counseling Z71.82 [facility] [address] [id number] [address] [place] [address] Jun, Labyrinthitis of left ear H8 3.02 [place] [address] [id number] [address] [place] [address] May, Exercise counseling Z71.82 [place] [address] [id number] [address] [place] [address] May, Arthritis M19.90 [facility] [address] [id number] [address] [place] [address] May, Exercise counseling Z71.82 [facility] [address] [id number] [address] [place] [address] May, Exercise counseling Z71.82 [facility] [address] [id number] [address] [place] [address] May, Labyrinthitis of left ear H8 3.02 [facility] [address] [id number] [address] [place] [address] May, Exercise counseling Z71.82 [facility] [address] [id number] [address] [place] [address] Apr, Arthritis M19.90 [facility] [address] [id number] [address] [place] [address] Apr, Exercise counseling Z71.82 [facility] [address] [id number] [address] [place] [address] Apr, Exercise counseling Z71.82 [place] [address] [address] Apr, Primary osteoarthritis of le ft knee M17.12 [place] [address] [address] Apr, Labyrinthitis of left ear H8 3.02 [place] [address] [address] Mar, Arthritis M19.90 [place] [address] [address] Mar, [place] [address] [address] Mar, Chronic kidney disease, stag e 4 (severe) N18.4 [place] [address] [address] Mar, Chronic kidney disease, stag e 4 (severe) N18.4 [place] [address] [address] Mar, Labyrinthitis of left ear H8 3.02 [place] [address] [address] 05 Mar, 2018 Chronic kidney disease, stag e 4 (severe) N18.4 ; Knee pain, left anterior M25.562 ; Deficiency of other specified B group vitamins E53.8 and Encounter for immunization Z23 [place] [address] [place] [id number] [address] [place] [address] Mar, Arthritis M19.90 [place] [address] [address] Feb, Labyrinthitis of left ear H8 3.02 [place] [address] [id number] 06 Feb, 2018 Arthritis M19.90 [place] [address] [place] [id number] [address] [place] [address] Jan, Labyrinthitis of left ear H8 3.02 [facility] [address] [facility] [id number] [address] [place] [phone] Jan, Arthritis M19.90 [facility] [address] [facility] [id number] [address] [place] [address] Dec, Labyrinthitis of left ear H8 3.02 [facility] [address] [facility] [id number] [address] [place] [address] Nov, Arthritis M19.90 [place] [address] [place] [id number] [address] [place] [address] Nov, Labyrinthitis of left ear H8 3.02 [place] [address] [place] [id number] [address] [place] [address] Nov, BMI 40.0-44.9, adult Z68.41 ; Chronic kidney disease, stage 4 (severe) N18.4 and Acute right-sided thoracic back pain M54.6 [place] [address] [place] [id number] [address] [place] [address] October, Labyrinthitis of left ear H8 3.02 and Arthritis M19.90 [place] [address] [place] [id number] [address] [place] [address] Sep, BPV (benign positional verti go), bilateral H81.13 ; Dysfunction of left eustachian tube H69.82 and BMI 40.0-44.9, adult Z68.41 [place] [address] [facility] [id number] [address] [place] [address] Sep, Labyrinthitis of left ear H8 3.02 and Arthritis M19.90 [place] [id number] [facility] [id number] [address] [place] [address] Sep, [place] [address] [place] [id number] [address] [place] [address] Sep, [facility] [address] [id number] [address] [place] [address] Sep, Chronic kidney disease, stag e 4 (severe) N18.4 [facility] [address] [id number] [address] [place] [address] Sep, Chronic kidney disease, stag e 4 (severe) N18.4 [facility] [address] [id number] [address] [place] [address] Aug, Labyrinthitis of left ear H8 3.02 and Arthritis M19.90 [facility] [address] [id number] [address] [place] [address] Aug, [facility] [address] [id number] [address] [place] [address] Jul, [facility] [address] [facility] [id number] [address] [place] [address] Jul, Arthritis M19.90 and Labyrin thitis of left ear H83.02 [facility] [address] [id number] [address] [place] [address] Jul, [facility] [address] [id number] [address] [place] [address] Jun, [facility] [address] [id number] [address] [place] [address] Jun, Arthritis M19.90 and Labyrin thitis of left ear H83.02 [facility] [address] [facility] [id number] [address] [place] [address] Jun, Pre-op evaluation Z01.818 ; BMI 40.0-44.9, adult Z68.41 and Encounter for immunization Z23 [facility] [address] [facility] [id number] [address] [place] [address] May, Arthritis M19.90 and Labyrin thitis of left ear H83.02 [facility] [address] [place] [id number] [address] [place] [address] Apr, Labyrinthitis of left ear H8 3.02 [place] [address] [place] [id number] [address] [place] [address] Apr, Arthritis M19.90 and Labyrin thitis of left ear H83.02 [place] [address] [place] [id number] [address] [place] [address] Mar, Arthritis M19.90 and Labyrin thitis of left ear H83.02 [place] [address] [place] [id number] [address] [place] [address] Mar, Chronic kidney disease, stag e 4 (severe) N18.4 [place] [address] [place] [id number] [address] [place] [address] Feb, Arthritis M19.90 and Labyrin thitis of left ear H83.02 [place] [address] [place] [id number] [place] [address] Jan, Labyrinthitis of left ear H8 3.02 and Deficiency of other specified B group vitamins E53.8 [place] [address] [place] [id number] [address] [place] [address] Dec, Arthritis M19.90 [place] [address] [place] [id number] [address] [place] [address] Dec, BPV (benign positional verti go), bilateral H81.13 [place] [address] [place] [id number] [address] [place] [address] Dec, [place] [address] [place] [id number] [address] [place] [address] Dec, [place] [address] [place] [id number] [address] [place] [address] Dec, [place] [address] [place] [id number] [address] [place] [address] Nov, Arthritis M19.90 and Deficie ncy of other specified B group vitamins E53.8 [facility] [address] [id number] [address] [place] [address] Nov, Arthritis M19.90 [facility] [address] [id number] [address] [place] [address] Nov, Hyperparathyroidism E21.3 [facility] [address] [facility] [id number] [address] [place] [address] October, [facility] [address] [id number] [address] [place] [address] October, Hyperparathyroidism E21.3 [facility] [address] [facility] [id number] [address] [place] [address] October, [facility] [address] [facility] [id number] [address] [place] [address] October, Renal insufficiency N28.9 an d Hyperparathyroidism E21.3 [facility] [address] [facility] [id number] [address] [place] [address] October, [facility] [address] [facility] [id number] [address] [place] [address] October, Renal insufficiency N28.9 an d Hyperparathyroidism E21.3 [facility] [address] [facility] [id number] [address] [place] [address] October, Arthritis M19.90 [facility] [address] [facility] [id number] [address] [place] [address] Sep, [facility] [address] [facility] [id number] [address] [place] [address] Sep, Lumbar neuritis M54.16 ; Tho racic abscess J86.9 and Deficiency of other specified B group vitamins E53.8 [facility] [address] [id number] [address] [place] [address] Sep, [facility] [address] [facility] [id number] [address] [place] [address] Aug, Arthritis M19.90 [facility] [address] [facility] [id number] [address] [place] [address] Aug, Hyperparathyroidism E21.3 [facility] [address] [facility] [id number] [address] [place] [address] Aug, Hyperparathyroidism E21.3 [facility] [address] [facility] [id number] [address] [place] [address] Aug, Arthritis M19.90 [facility] [address] [facility] [id number] [address] [place] [address] Jul, Mass of throat R22.1 [facility] [address] [place] [id number] [address] [place] [address] Jul, [facility] [address] [address] Jul, Arthritis M19.90 [facility] [address] [place] [id number] [address] [place] [address] Jun, Arthritis M19.90 [facility] [address] [place] [id number] [address] [place] [address] Jun, [facility] [id number] [place] [address] Jun, Renal insufficiency N28.9 an d Parathyroid abnormality E21.5 [facility] [address] [facility] [id number] [address] [place] [address] 05 Jun, 2016 Medicare welcome exam Z00.00 ; Encounter for immunization Z23 ; Arthritis M19.90 ; Medicare annual wellness visit, initial Z00.00 ; Medicare annual wellness visit, subsequent Z00.00 and Deficiency of other specified B group vitamins E53.8 [facility] [address] [facility] [id number] [address] [place] [address] May, Renal insufficiency N28.9 an d Parathyroid abnormality E21.5 [facility] [address] [facility] [id number] [address] [place] [address] 19 May, 2016 Renal insufficiency N28.9 [facility] [address] [facility] [id number] [address] [place] [address] 16 May, 2016 Renal insufficiency N28.9 [facility] [address] [facility] [id number] [address] [place] [phone] 14 May, 2016 [facility] [address] [facility] [id number] [address] [place] [phone] 16 Apr, 2016 [facility] [address] [facility] [id number] [address] [place] [phone] 16 Apr, 2016 [facility] [address] [facility] [id number] [address] [place] [phone] 14 Apr, 2016 Mass of throat R22.1 [facility] [address] [facility] [id number] [address] [place] [phone] 10 Apr, 2016 [facility] [address] [facility] [id number] [address] [place] [phone] 10 Apr, 2016 Mass of throat R22.1 [facility] [address] [facility] [id number] [address] [place] [phone] 04 Apr, 2016 Mass of throat R22.1 [facility] [address] [facility] [id number] [address] [place] [phone] 31 Mar, 2016 [facility] [address] [facility] [id number] [address] [place] [phone] Mar, [facility] [address] [facility] [id number] [address] [place] [phone] Mar, [facility] [address] [facility] [id number] [address] [place] [phone] 24 Mar, 2016 Parathyroid abnormality E21. 5 and Encounter for immunization Z23 [facility] [address] [facility] [id number] [address] [place] [phone] 17 Mar, 2016 [facility] [address] [facility] [id number] [address] [place] [id number] Mar, [facility] [address] [id number] [address] [place] [phone] 21 Feb, 2016 Renal insufficiency N28.9 an d Hyperparathyroidism E21.3 [facility] [address] [id number] [address] [place] [phone] 19 Feb, 2016 [facility] [address] [id number] [address] [place] [phone] 15 Feb, 2016 Renal insufficiency N28.9 an d Hyperparathyroidism E21.3 [facility] [address] [id number] [address] [place] [phone] 14 Feb, 2016 [facility] [address] [id number] [address] [place] [phone] 12 Feb, 2016 [facility] [address] [facility] [id number] [address] [place] [phone] Feb, [facility] [address] [facility] [id number] [address] [place] [phone] Jan, [facility] [address] [facility] [id number] [address] [place] [address] [address] Jan, Arthritis M19.90 ; Lumbago w ith sciatica, right side M54.41 and Other chronic pain G89.29 [facility] [address] [facility] [id number] [address] [place] [address] Jan, [facility] [address] [facility] [id number] [address] [place] [address] Dec, Arthritis M19.90 ; Lumbago w ith sciatica, right side M54.41 and Other chronic pain G89.29 [facility] [address] [facility] [id number] [address] [place] [address] Nov, Deficiency of other specifie d B group vitamins E53.8 ; Primary insomnia F51.01 ; Mood disorder F39 and Lumbago with sciatica, right side M54.41 [facility] [address] [facility] [id number] [address] [place] [address] Nov, Hyperparathyroidism E21.3 [facility] [address] [facility] [id number] [address] [place] [address] Nov, Unspecified kidney failure N 19 and Hyperparathyroidism E21.3 [facility] [address] [facility] [id number] [address] [place] [address] October, Hyperparathyroidism E21.3 [facility] [address] [address] October, [facility] [address] [address] October, Hyperparathyroidism E21.3 [facility] [address] [address] October, Hyperparathyroidism E21.3 [facility] [address] [address] Sep, Hyperparathyroidism E21.3 ; Hypercholesterolemia E78.0 and Arthritis M19.90 [facility] [address] [address] Aug, [facility] [address] [address] Aug, Deficiency of other specifie d B group vitamins E53.8 [facility] [address] [place] [id number] [address] [place] [address] Aug, [facility] [address] [address] Jul, Urinary frequency R35.0 [facility] [address] [address] Jul, Urinary frequency R35.0 [facility] [address] [place] [id number] [address] [place] [address] Jul, [facility] [address] [address] Jul, [facility] [address] [id number] [address] [place] [address] Jun, Pain in left knee M25.562 [facility] [address] [id number] [address] [place] [address] Jun, [facility] [address] [id number] [address] [place] [address] May, Swelling of left knee joint M25.462 [facility] [address] [id number] [address] [place] [address] May, [facility] [address] [id number] [address] [place] [address] May, [facility] [address] [facility] [id number] [address] [place] [address] May, [facility] [address] [facility] [id number] [address] [place] [address] Apr, Renal insufficiency N28.9 an d Chronic kidney disease, stage 4 (severe) N18.4 [facility] [address] [facility] [id number] [address] [place] [address] Apr, Unspecified kidney failure N 19 [facility] [address] [facility] [id number] [address] [place] [address] Apr, Unspecified kidney failure N 19 [facility] [address] [facility] [id number] [address] [place] [address] Apr, [facility] [address] [facility] [id number] [address] [place] [address] Apr, Hyperparathyroidism, unspeci fied 252.00 [facility] [address] [facility] [id number] [address] [place] [address] Apr, [facility] [address] [facility] [id number] [address] [place] [address] Mar, [facility] [address] [facility] [id number] [address] [place] [address] Mar, [facility] [address] [id number] [address] [place] [address] Mar, Hyperparathyroidism, unspeci fied 252.00 [facility] [address] [id number] [address] [place] [address] Feb, [facility] [address] [facility] [id number] [address] [place] [address] Feb, Otalgia 388.70 [facility] [address] [facility] [id number] [address] [place] [address] Feb, [facility] [address] [facility] [id number] [address] [place] [address] Feb, [facility] [address] [facility] [id number] [address] [place] [address] Jan, [facility] [address] [facility] [id number] [address] [place] [address] Jan, Hyperparathyroidism, unspeci fied 252.00 [facility] [address] [id number] [address] [place] [address] Jan, [facility] [address] [facility] [id number] [address] [place] [address] Jan, Other B-complex deficiencies 266.2 and Hyperparathyroidism, unspecified 252.00 [facility] [address] [facility] [id number] [address] [place] [address] Jan, [facility] [address] [facility] [id number] [address] [place] [address] Jan, [facility] [address] [facility] [id number] [address] [place] [address] Jan, [facility] [address] [facility] [id number] [address] [place] [address] Dec, [facility] [address] [facility] [id number] [address] [place] [address] Dec, [facility] [address] [id number] [address] [place] [address] Dec, [facility] [address] [id number] [address] [place] [address] Nov, Routine check-up V70.0 and P re-op exam V72.84 [facility] [address] [id number] [address] [place] [address] Nov, [facility] [address] [id number] [address] [place] [address] Nov, [facility] [address] [id number] [address] [place] [address] October, [facility] [address] [id number] [address] [place] [address] October, Other B-complex deficiencies 266.2 [facility] [address] [id number] [address] [place] [address] October, [facility] [address] [id number] [address] [place] [address] Sep, [facility] [address] [id number] [address] [place] [address] Sep, [facility] [address] [id number] [address] [place] [address] Aug, [facility] [address] [id number] [address] [place] [address] Aug, [facility] [address] [id number] [address] [place] [address] Aug, [facility] [address] [id number] [address] [place] [id number] 17 Aug, 2014 [facility] [address] [id number] [address] [place] [address] Aug, [facility] [address] [id number] [address] [place] [address] Aug, [facility] [address] [id number] [address] [place] [address], [place] [address] Jul, 2014 [facility] [address] [id number] [address] [place] [address], [place] [address] Jul, 2014 [facility] [address] [id number] [address] [place] [address], [place] [address] Jul, 2014 [facility] [address] [id number] [address] [place] [address], [place] [address] Jul, 2014 [facility] [address] [id number] [address] [place] [address], [place] [address] Jul, 2014 [facility] [address] [id number] [address] [place] [address], [place] [address] Jul, 2014 [facility] [address] [id number] [address] [place] [address], [place] [address] Jul, 2014 [facility] [address] [id number] [address] [place] [address], [place] [address] Jul, 2014 [facility] [address] [id number] [address] [place] [address], [place] [address] Jul, 2014 [facility] [address] [id number] [address] [place] [address], [place] [address] Jul, 2014 [facility] [address] [id number] [address] [place] [address], [place] [address] Jul, 2014 [facility] [address] [id number] [address] [place] [address], [place] [address] Jul, 2014 [facility] [address] [id number] [address] [place] [address], [place] [address] Jul, 2014 [facility] [address] [id number] [address] [place] [address], [place] [address] Jul, 2014 [facility] [address] [id number] [address] [place] [address], [place] [address] Jun, [facility] [address] [id number] [address] [place] [address], [place] [address] Jun, [facility] [address] [id number] [address] [place] [address], [place] [address] Jun, [facility] [address] [id number] [address] [place] [address], [place] [address] Jun, [facility] [address] [id number] [address] [place] [address], [place] [address] Jun, [facility] [address] [id number] [address] [place] [address], [place] [address] Jun, [facility] [address] [id number] [address] [place] [address], [place] [address] Jun, [facility] [address] [id number] [address] [place] [address], [place] [address] Jun, [facility] [address] [id number] [address] [place] [address], [place] [address] Jun, [facility] [address] [id number] [address] [place] [address], [place] [address] Jun, [facility] [address] [id number] [address] [place] [address], [place] [address] Jun, [facility] [address] [id number] [address] [place] [address], [place] [address] Jun, [facility] [address] [id number] [address] [place] [address] Jun, [facility] [address] [id number] [address] [place] [address], [place] [address] Jun, [facility] [address] [id number] [address] [place] [address], [place] [address] May, [facility] [address] [id number] [address] [place] [address], [place] [address] May, [facility] [address] [id number] [address] [place] [address] May, [facility] [address] [id number] [address] [place] [address], [place] [address] May, [facility] [address] [id number] [address] [place] [address], [place] [address] Apr, [facility] [address] [id number] [address] [place] [address], [place] [address] Apr, [facility] [address] [id number] [address] [place] [address], [place] [address] Apr, [facility] [address] [id number] [address] [place] [address], [place] [address] Apr, [facility] [address] [id number] [address] [place] [address], [place] [address] Apr, [facility] [address] [id number] [address] [place] [address], [place] [address] Apr, [facility] [address] [id number] [address] [place] [address], [place] [address] Mar, [facility] [address] [id number] [address] [place] [address], [place] [address] Mar, [facility] [address] [id number] [address] [place] [address], [place] [address] Mar, [facility] [address] [id number] [address] [place] [address], [place] [address] Mar, [facility] [address] [id number] [address] [place] [address] 15 Mar, 2014 [facility] [address] [id number] [address] [place] [address], [place] [address] 15 Mar, 2014 [facility] [address] [id number] [address] [place] [address] Mar, [facility] [address] [id number] [address] [place] [address] Mar, [facility] [address] [id number] [address] [place] [address], [place] [address] 07 Mar, 2013 [facility] [address] [id number] [address] [place] [address], [place] [address] 07 Mar, 2013 [facility] [address] [id number] [address] [place] [address], [place] [address] 07 Mar, 2013 [facility] [address] [id number] [address] [place] [address], [place] [address] 07 Mar, 2013 [facility] [address] [id number] [address] [place] [address], [place] [address] 06 Mar, 2013 [facility] [address] [id number] [address] [place] [address], [place] [address] 26 Feb, 2013 [facility] [address] [id number] [address] [place] [address], [place] [address] 26 Feb, 2013 [facility] [address] [id number] [address] [place] [address], [place] [address] 23 Feb, 2013 [facility] [address] [id number] [address] [place] [address], [place] [address] 23 Feb, 2013 [facility] [address] [id number] [address] [place] [address], [place] [address] 19 Feb, 2013 [facility] [address] [id number] [address] [place] [address], [place] [address] 19 Feb, 2013 [facility] [address] [id number] [address] [place] [address], [place] [address] 13 Feb, 2013 [facility] [address] [id number] [address] [place] [address], [place] [address] 13 Feb, 2013 [facility] [address] [id number] [address] [place] [address], [place] [address] 12 Feb, 2013 [facility] [address] [id number] [address] [place] [address], [place] [address] 12 Feb, 2013 [facility] [address] [id number] [address] [place] [address], [place] [address] Jan, [facility] [address] [id number] [facility] [place] [address] Jan, [facility] [address] [id number] [facility] [place] [address] Dec, [facility] [address] [id number] [facility] [place] [address] Dec, [facility] [address] [id number] [address] [place] [address], [place] [address] Dec, [facility] [address] [id number] [address] [place] [address], [place] [address] Dec, [facility] [address] [id number] [address] [place] [address], [place] [address] Dec, [facility] [address] [id number] [address] [place] [address], [place] [address] Dec, [facility] [address] [id number] [address] [place] [address], [place] [address] Nov, [facility] [address] [id number] [address] [place] [address], [place] [address] Nov, [facility] [address] [id number] [address] [place] [address], [place] [address] Nov, [facility] [address] [id number] [address] [place] [address], [place] [address] Nov, [facility] [address] [id number] [address] [place] [address], [place] [address] October, [facility] [address] [id number] [address] [place] [address], [place] [address] October, [facility] [address] [id number] [address] [place] [address], [place] [address] October, [facility] [address] [id number] [address] [place] [address], [place] [address] October, [facility] [address] [id number] [address] [place] [address], [place] [address] October, [facility] [address] [id number] [address] [place] [address], [place] [address] October, [facility] [address] [id number] [address] [place] [address], [place] [address] October, [facility] [address] [id number] [address] [place] [address], [place] [address] October, [facility] [address] [id number] [address] [place] [address], [place] [address] October, [facility] [address] [id number] [address] [place] [address], [place] [address] October, [facility] [address] [id number] [address] [place] [address], [place] [address] October, [facility] [address] [id number] [address] [place] [address], [place] [address] October, [facility] [address] [id number] [address] [place] [address], [place] [address] October, [facility] [address] [id number] [address] [place] [address], [place] [address] October, [facility] [address] [id number] [address] [place] [address], [place] [address] October, [facility] [address] [id number] [address] [place] [address], [place] [address] October, [facility] [address] [id number] [address] [place] [address], [place] [address] Sep, [facility] [address] [id number] [address] [place] [address], [place] [address] Sep, [facility] [address] [id number] [address] [place] [address], [place] [address] Sep, [facility] [address] [id number] [address] [place] [address], [place] [address] Sep, [facility] [address] [id number] [address] [place] [address], [place] [address] Sep, [facility] [address] [id number] [address] [place] [address], [place] [address] Sep, [facility] [address] [id number] [address] [place] [address], [place] [address] Aug, [facility] [address] [id number] [address] [place] [address], [place] [address] Aug, [facility] [address] [id number] [address] [place] [address], [place] [address] Aug, [facility] [address] [id number] [address] [place] [address], [place] [address] Aug, [facility] [address] [id number] [address] [place] [address], [place] [address] Aug, [facility] [address] [id number] [address] [place] [address], [place] [address] Aug, [facility] [address] [id number] [address] [place] [address], [place] [address] Jul, [facility] [address] [id number] [address] [place] [address], [place] [address] Jul, [facility] [address] [id number] [address] [place] [address], [place] [address] Jul, [facility] [address] [id number] [address] [place] [address], [place] [address] Jul, [facility] [address] [id number] [address] [place] [address], [place] [address] Jun, [facility] [address] [id number] [address] [place] [address], [place] [address] Jun, [facility] [address] [id number] [address] [place] [address], [place] [address] May, [facility] [address] [id number] [address] [place] [id number] 11 May, 2013 [facility] [address] [id number] [address] [place] [address], [place] [address] 10 May, 2013 [facility] [address] [id number] [address] [place] [id number] May, [facility] [address] [id number] [address] [place] [address] May, [facility] [address] [id number] [address] [place] [address] Apr, [facility] [address] [id number] [address] [place] [address] Apr, [facility] [address] [id number] [address] [place] [address] Apr, [facility] [address] [id number] [address] [place] [address] Apr, [facility] [address] [id number] [address] [place] [address] Apr, [facility] [address] [id number] [address] [place] [id number] 04 Apr, 2013 [facility] [address] [id number] [address] [place] [id number] 15 Mar, 2013 [facility] [address] [id number] [address] [place] [id number] 15 Mar, 2013 [facility] [address] [id number] [address] [place] [id number] 14 Mar, 2013 [facility] [address] [id number] [address] [place] [id number] 14 Mar, 2013 [facility] [address] [id number] [address] [place] [id number] 11 Mar, 2013 [facility] [address] [id number] [address] [place] [id number] 11 Mar, 2013 [facility] [address] [id number] [facility] [place] [address] Feb, [facility] [address] [id number] [address] [place] [address], [place] [address] Feb, [facility] [address] [id number] [address] [place] [address], [place] [address] Feb, [facility] [address] [id number] [address] [place] [address], [place] [address] Jan, [facility] [address] [id number] [address] [place] [address], [place] [address] Jan, [facility] [address] [id number] [address] [place] [address], [place] [address] Jan, [facility] [address] [id number] [address] [place] [address], [place] [address] Jan, [facility] [address] [id number] [address] [place] [address], [place] [address] Jan, [facility] [address] [id number] [address] [place] [address], [place] [address] Jan, [facility] [address] [id number] [address] [place] [address], [place] [id number] Dec, [facility] [address] [id number] [address] [place] [address], [place] [address] Dec, [facility] [address] [id number] [address] [place] [address], [place] [address] Dec, [facility] [address] [id number] [address] [place] [address], [place] [address] Dec, [facility] [address] [id number] [address] [place] [address], [place] [address] Dec, [facility] [address] [id number] [address] [place] [address], [place] [address] Dec, [facility] [address] [id number] [address] [place] [address], [place] [address] 26 Nov, 2012 [facility] [address] [id number] [address] [place] [address], [place] [address] 19 Nov, 2012 [facility] [address] [id number] [address] [place] [address], [place] [address] 18 Nov, 2012 [facility] [address] [id number] [address] [place] [address], [place] [address] 13 Nov, 2012 [facility] [address] [id number] [address] [place] [address], [place] [address] Nov, [facility] [address] [id number] [address] [place] [address], [place] [address] Nov, [facility] [address] [id number] [address] [place] [address], [place] [address] October, [facility] [address] [id number] [address] [place] [address], [place] [address] October, [facility] [address] [id number] [address] [place] [address], [place] [address] October, [facility] [address] [id number] [address] [place] [address], [place] [address] October, [facility] [address] [id number] [address] [place] [address], [place] [address] October, [facility] [address] [id number] [address] [place] [address], [place] [address] 30 Sep, 2012 [facility] [address] [id number] [address] [place] [address], [place] [address] Sep, [facility] [address] [id number] [address] [place] [address], [place] [address] Sep, [facility] [address] [id number] [address] [place] [address], [place] [address] 18 Sep, 2012 [facility] [address] [id number] [address] [place] [address], [place] [address] Sep, [facility] [address] [id number] [address] [place] [address], [place] [address] 26 Aug, 2012 [facility] [address] [id number] [address] [place] [address], [place] [address] 07 Aug, 2012 [facility] [address] [id number] [address] [place] [address], [place] [address] 04 Aug, 2012 [facility] [address] [id number] [address] [place] [address], [place] [address] 21 Jul, 2012 [facility] [address] [id number] [address] [place] [address], [place] [address] 20 Jul, 2012 [facility] [address] [id number] [address] [place] [address], [place] [address] 11 Jul, 2012 [facility] [address] [id number] [address] [place] [address], [place] [address] 08 Jul, 2012 [facility] [address] [id number] [address] [place] [address], [place] [address] 06 Jul, 2012 [facility] [address] [id number] [address] [place] [address], [place] [address] 05 Jul, 2012 [facility] [address] [id number] [address] [place] [address], [place] [address] 15 Jun, 2012 [facility] [address] [id number] [address] [place] [address], [place] [address] 16 Apr, 2012 [facility] [address] [id number] [address] [place] [address], [place] [address] 16 Apr, 2012 [facility] [address] [id number] [address] [place] [address], [place] [address] Apr, [facility] [address] [id number] [address] [place] [address], [place] [address] Apr, [facility] [address] [id number] [address] [place] [address], [place] [address] Mar, [facility] [address] [id number] [address] [place] [address], [place] [address] Mar, [facility] [address] [id number] [address] [place] [address], [place] [address] Mar, [facility] [address] [id number] [address] [place] [address], [place] [address] Mar, [facility] [address] [id number] [address] [place] [address], [place] [address] Mar, [facility] [address] [id number] [address] [place] [address], [place] [address] Feb, [facility] [address] [id number] [address] [place] [address], [place] [address] Jan, [facility] [address] [id number] [address] [place] [address], [place] [address] Jan, [facility] [address] [id number] [address] [place] [address], [place] [address] Jan, [facility] [address] [id number] [address] [place] [address], [place] [address] Dec, [facility] [address] [id number] [address] [place] [address], [place] [address] Nov, [facility] [address] [id number] [address] [place] [address], [place] [address] Nov, [facility] [address] [id number] [address] [place] [address], [place] [address] Nov, [facility] [address] [id number] [address] [place] [address] Nov, [facility] [address] [id number] [address] [place] [address], [place] [address] Nov, [facility] [address] [id number] [address] [place] [address], [place] [address] October, [facility] [address] [id number] [address] [place] [address], [place] [address] October, [facility] [address] [id number] [address] [place] [address] October, [facility] [address] [facility] [id number] [address] [place] [address] October, [facility] [address] [facility] [id number] [address] [place] [id number] October, IMMUNIZATIONS No Known Immunizations SOCIAL HISTORY [...]
--- OUTSIDE RECORDS SUMMARY | 2020-01-25 08:16 | XMS REPORT ---
Author Author Velma CORDERO Organization [facility] Address [address] [place] [address] Care Team Providers Care Chopper Operator Name Role Phone STEPHAN CORDERO Unavailable PROBLEMS Type Condition ICD9-CM Code [id number] Code Onset Dates Condition S tatus SNOMED Code Problem Corns L84 Active 821961208 Problem Primary insomnia F51.01 Active 397 2004 Problem Hyperparathyroidism E21.3 Active 82926698 Problem Hypercholesteremia E78.0 Active 1 8647821 Problem Mood disorder F39 Active 973034 05 Problem Arthritis M19.90 Active 5480013 Problem 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 Active 02692554 Problem Myalgia M79.1 Active 60390107 Problem Chronic kidney disease, stage 4 (severe) N18.4 Active 705159987 Problem Primary osteoarthritis of left knee M17.12 Active 470821778228334 Problem Irritable bowel syndrome with both constipation and diarrh ea K58.2 Active 24674836 Problem Other chronic pain G89.29 Active 8 2330534 Problem BPV (benign positional vertigo), bilateral H81.13 Active 764650242 Problem Hyperparathyroidism, unspecified E21.3 Active 92959295 Problem 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 Active 54918688 Problem Body mass index (BMI) of 40.0-44.9 in adult Z68.41 Active 861937156 Problem Unspecified kidney failure N19 Act chip 86433094 Problem 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 Active 992756236 Problem Unspecified inflammatory spo ndylopathy, sacral and sacrococcygeal region M46.98 Active 04191420 ALLERGIES No Information ENCOUNTERS Encounter Location Date Diagnosis [facility] [address] [facility] [id number] [address] [place] [address] Nov, [facility] [address] [facility] [id number] [address] [place] [phone] October, [place] [address] [facility] [id number] [address] [place] [address] October, Hyperparathyroidism, unspeci fied E21.3 [place] [address] [facility] [id number] [address] [place] [address] October, Hyperparathyroidism, unspeci fied E21.3 [place] [address] [facility] [id number] [address] [place] [address] Sep, Hyperparathyroidism, unspeci fied E21.3 [place] [address] [facility] [id number] [address] [place] [address] Aug, Hyperparathyroidism, unspeci fied E21.3 [place] [address] [facility] [id number] [address] [place] [address] Aug, Pain in left knee M25.562 ; Other chronic pain G89.29 ; Unspecified inflammatory spondylopathy, sacral and sacrococcygeal region M46.98 ; Chronic kidney disease, stage 4 (severe) N18.4 and Hyperparathyroidism, unspecified E21.3 [place] [address] [facility] [id number] [address] [place] [address] Jul, [place] [address] [facility] [id number] [address] [place] [address] Jul, Arthritis M19.90 [place] [address] [place] [id number] [address] [place] [address] Jun, Knee pain, left M25.562 [place] [address] [facility] [id number] [address] [place] [address] May, Arthritis M19.90 [place] [address] [facility] [id number] [address] [place] [address] Apr, Well woman exam without gyne cological exam Z00.00 and Screening for breast cancer Z12.39 [place] [address] [facility] [id number] [address] [place] [address] Mar, Arthritis M19.90 [facility] [address] [facility] [id number] [address] [place] [address] Mar, Arthritis M19.90 [facility] [address] [facility] [id number] [address] [place] [address] Mar, [facility] [address] [facility] [id number] [address] [place] [address] Mar, Arthritis M19.90 and Encount er for immunization Z23 [facility] [address] [facility] [id number] [address] [place] [address] 30 Feb, 2019 Arthritis M19.90 [facility] [address] [facility] [id number] [address] [place] [address] Feb, [facility] [address] [place] [id number] [address] [place] [address] Feb, Other specified disorders of bone density and structure, unspecified site M85.80 [facility] [address] [place] [id number] [address] [place] [address] Jan, Arthritis M19.90 [facility] [address] [facility] [id number] [address] [place] [address] Dec, Arthritis M19.90 [facility] [address] [facility] [id number] [address] [place] [address] Nov, Inflammatory spondylopathy o f sacral region M46.98 [facility] [address] [place] [id number] [address] [place] [address] Nov, [facility] [address] [facility] [id number] [address] [place] [address] Nov, Labyrinthitis of left ear H8 3.02 [facility] [address] [facility] [id number] [address] [place] [address] Nov, Arthritis M19.90 [facility] [address] [place] [id number] [address] [place] [address] Sep, Arthritis M19.90 [facility] [address] [facility] [id number] [address] [place] [address] 08 Sep, 2018 Renal insufficiency N28.9 an d Unspecified kidney failure N19 [facility] [address] [facility] [id number] [address] [place] [address] 08 Sep, 2018 Renal insufficiency N28.9 an d Unspecified kidney failure N19 [place] [id number] [facility] [id number] [address] [place] [address] 08 Sep, 2018 Arthritis M19.90 [place] [address] [facility] [id number] [address] [place] [address] Aug, Exercise counseling Z71.82 [place] [address] [facility] [id number] [address] [place] [address] Aug, [place] [address] [facility] [id number] [address] [place] [address] 27 Jul, 2018 Labyrinthitis of left ear H8 3.02 [place] [address] [facility] [id number] [address] [place] [address] Jul, Labyrinthitis of left ear H8 3.02 [place] [address] [facility] [id number] [address] [place] [address] 19 Jul, 2018 Exercise counseling Z71.82 [place] [address] [facility] [id number] [address] [place] [address] 18 Jul, 2018 [place] [address] [facility] [id number] [address] [place] [address] 14 Jul, 2018 Arthritis M19.90 [place] [address] [facility] [id number] [address] [place] [address] 13 Jul, 2018 Encounter for Medicare annua wellness exam Z00.00 ; Chronic kidney disease, stage 4 (severe) N18.4 ; Body mass index (BMI) of 40.0-44.9 in adult Z68.41 ; Hyperparathyroidism E21.3 and BMI 40.0-44.9, adult Z68.41 [place] [address] [facility] [id number] [address] [place] [address] 13 Jul, 2018 Encounter for Medicare wolf l wellness exam Z00.00 ; Chronic kidney disease, stage 4 (severe) N18.4 ; Hyperparathyroidism E21.3 ; Body mass index (BMI) of 40.0-44.9 in adult Z68.41 and Encounter for immunization Z23 [place] [address] [facility] [id number] [address] [place] [address] 11 Jul, 2018 Tail bone pain M53.3 [place] [address] [facility] [id number] [address] [place] [address] Jun, Exercise counseling Z71.82 [place] [address] [place] [id number] [place] [address] Jun, Labyrinthitis of left ear H8 3.02 [place] [address] [place] [id number] [place] [address] Jun, Tail bone pain M53.3 ; Irrit able bowel syndrome with both constipation and diarrhea K58.2 and Dysfunction of left eustachian tube H69.82 [place] [address] [place] [id number] [address] [place] [address] Jun, Exercise counseling Z71.82 [place] [address] [place] [id number] [address] [place] [address] Jun, Arthritis M19.90 [place] [address] [facility] [id number] [address] [place] [address] Jun, Irritable bowel syndrome wit h both constipation and diarrhea K58.2 ; Tail bone pain M53.3 and Dysfunction of left eustachian tube H69.82 [place] [address] [facility] [id number] [address] [place] [address] Jun, Exercise counseling Z71.82 [place] [address] [facility] [id number] [address] [place] [address] Jun, Exercise counseling Z71.82 [place] [address] [id number] [address] [place] [address] 02 Jun, 2018 Labyrinthitis of left ear H8 3.02 [facility] [address] [id number] [address] [place] [address] May, Exercise counseling Z71.82 [facility] [address] [id number] [address] [place] [address] May, Arthritis M19.90 [facility] [address] [id number] [address] [place] [address] May, Exercise counseling Z71.82 [facility] [address] [id number] [address] [place] [address] May, Exercise counseling Z71.82 [facility] [address] [id number] [address] [place] [address] May, Labyrinthitis of left ear H8 3.02 [facility] [address] [id number] [address] [place] [address] May, Exercise counseling Z71.82 [facility] [address] [id number] [address] [place] [address] Apr, Arthritis M19.90 [facility] [address] [id number] [address] [place] [address] Apr, Exercise counseling Z71.82 [facility] [address] [id number] [address] [place] [address] Apr, Exercise counseling Z71.82 [facility] [address] [id number] [address] [place] [phone] Apr, Primary osteoarthritis of le ft knee M17.12 [facility] [address] [id number] [address] [place] [address] Apr, Labyrinthitis of left ear H8 3.02 [facility] [address] [id number] [address] [place] [address] Mar, Arthritis M19.90 [facility] [address] [facility] [id number] [address] [place] [address] Mar, [facility] [address] [facility] [id number] [address] [place] [phone] Mar, Chronic kidney disease, stag e 4 (severe) N18.4 [facility] [address] [place] [id number] [place] [address] Mar, Chronic kidney disease, stag e 4 (severe) N18.4 [facility] [address] [facility] [id number] [address] [place] [address] Mar, Labyrinthitis of left ear H8 3.02 [facility] [address] [place] [id number] [address] [place] [address] Mar, Chronic kidney disease, stag e 4 (severe) N18.4 ; Knee pain, left anterior M25.562 ; Deficiency of other specified B group vitamins E53.8 and Encounter for immunization Z23 [facility] [address] [place] [id number] [address] [place] [address] Mar, Arthritis M19.90 [facility] [address] [place] [id number] [address] [place] [address] Feb, Labyrinthitis of left ear H8 3.02 [facility] [address] [place] [id number] [address] [place] [address] Feb, Arthritis M19.90 [facility] [address] [facility] [id number] [address] [place] [address] Jan, Labyrinthitis of left ear H8 3.02 [facility] [address] [facility] [id number] [address] [place] [address] Jan, Arthritis M19.90 [facility] [address] [place] [id number] [address] [place] [address] Dec, Labyrinthitis of left ear H8 3.02 [place] [address] [facility] [id number] [address] [place] [address] Nov, Arthritis M19.90 [place] [address] [facility] [id number] [address] [place] [phone] Nov, Labyrinthitis of left ear H8 3.02 [place] [address] [place] [id number] [address] [place] [address] Nov, BMI 40.0-44.9, adult Z68.41 ; Chronic kidney disease, stage 4 (severe) N18.4 and Acute right-sided thoracic back pain M54.6 [place] [address] [place] [id number] [place] [address] October, Labyrinthitis of left ear H8 3.02 and Arthritis M19.90 [place] [address] [place] [id number] [address] [place] [address] Sep, BPV (benign positional verti go), bilateral H81.13 ; Dysfunction of left eustachian tube H69.82 and BMI 40.0-44.9, adult Z68.41 [place] [address] [place] [id number] [place] [address] Sep, Labyrinthitis of left ear H8 3.02 and Arthritis M19.90 [place] [address] [place] [id number] [address] [place] [address] Sep, [place] [address] [place] [id number] [address] [place] [address] Sep, [place] [address] [place] [id number] [address] [place] [address] Sep, Chronic kidney disease, stag e 4 (severe) N18.4 [place] [address] [place] [id number] [address] [place] [address] Sep, Chronic kidney disease, stag e 4 (severe) N18.4 [place] [address] [place] [id number] [address] [place] [address] Aug, Labyrinthitis of left ear H8 3.02 and Arthritis M19.90 [facility] [address] [facility] [id number] [address] [place] [address] Aug, [facility] [address] [id number] [address] [place] [address] Jul, [facility] [address] [facility] [id number] [address] [place] [address] Jul, Arthritis M19.90 and Labyrin thitis of left ear H83.02 [facility] [address] [id number] [address] [place] [address] Jul, [facility] [address] [facility] [id number] [address] [place] [address] Jun, [facility] [address] [facility] [id number] [address] [place] [address] Jun, Arthritis M19.90 and Labyrin thitis of left ear H83.02 [facility] [address] [facility] [id number] [address] [place] [address] Jun, Pre-op evaluation Z01.818 ; BMI 40.0-44.9, adult Z68.41 and Encounter for immunization Z23 [facility] [address] [facility] [id number] [address] [place] [address] May, Arthritis M19.90 and Labyrin thitis of left ear H83.02 [facility] [address] [facility] [id number] [address] [place] [address] Apr, Labyrinthitis of left ear H8 3.02 [facility] [address] [facility] [id number] [address] [place] [address] Apr, Arthritis M19.90 and Labyrin thitis of left ear H83.02 [facility] [address] [facility] [id number] [address] [place] [address] Mar, Arthritis M19.90 and Labyrin thitis of left ear H83.02 [facility] [address] [id number] [address] [place] [address] 05 Mar, 2017 Chronic kidney disease, stag e 4 (severe) N18.4 [facility] [address] [id number] [address] [place] [address] 06 Feb, 2017 Arthritis M19.90 and Labyrin thitis of left ear H83.02 [facility] [address] [id number] [address] [place] [address] 10 Jan, 2017 Labyrinthitis of left ear H8 3.02 and Deficiency of other specified B group vitamins E53.8 [facility] [address] [id number] [address] [place] [address] Dec, Arthritis M19.90 [facility] [address] [id number] [address] [place] [phone] Dec, BPV (benign positional verti go), bilateral H81.13 [facility] [address] [id number] [address] [place] [address] Dec, [facility] [address] [id number] [address] [place] [address] Dec, [facility] [address] [facility] [id number] [address] [place] [address] Dec, [facility] [address] [id number] [address] [place] [phone] Nov, Arthritis M19.90 and Deficie ncy of other specified B group vitamins E53.8 [facility] [address] [id number] [address] [place] [id number] Nov, Arthritis M19.90 [facility] [address] [id number] [address] [place] [address] Nov, Hyperparathyroidism E21.3 [facility] [address] [facility] [id number] [address] [place] [address] October, [facility] [address] [facility] [id number] [address] [place] [address] October, Hyperparathyroidism E21.3 [facility] [address] [facility] [id number] [address] [place] [address] October, [facility] [address] [facility] [id number] [address] [place] [address] October, Renal insufficiency N28.9 an d Hyperparathyroidism E21.3 [facility] [address] [facility] [id number] [address] [place] [address] October, [facility] [address] [facility] [id number] [address] [place] [address] October, Renal insufficiency N28.9 an d Hyperparathyroidism E21.3 [facility] [address] [facility] [id number] [address] [place] [address] October, Arthritis M19.90 [facility] [address] [facility] [id number] [address] [place] [address] Sep, [facility] [address] [facility] [id number] [address] [place] [address] Sep, Lumbar neuritis M54.16 ; Tho racic abscess J86.9 and Deficiency of other specified B group vitamins E53.8 [facility] [address] [facility] [id number] [address] [place] [address] Sep, [facility] [address] [facility] [id number] [address] [place] [address] Aug, Arthritis M19.90 [facility] [address] [facility] [id number] [address] [place] [address] Aug, Hyperparathyroidism E21.3 [facility] [address] [facility] [id number] [address] [place] [address] Aug, Hyperparathyroidism E21.3 [facility] [address] [place] [id number] [address] [place] [address] Aug, Arthritis M19.90 [facility] [address] [facility] [id number] [address] [place] [address] Jul, Mass of throat R22.1 [facility] [address] [facility] [id number] [address] [place] [address] Jul, [facility] [address] [facility] [id number] [address] [place] [address] Jul, Arthritis M19.90 [facility] [address] [facility] [id number] [address] [place] [address] Jun, Arthritis M19.90 [facility] [address] [place] [id number] [address] [place] [address] Jun, [facility] [address] [facility] [id number] [address] [place] [address] Jun, Renal insufficiency N28.9 an d Parathyroid abnormality E21.5 [facility] [address] [facility] [id number] [address] [place] [id number] 05 Jun, 2016 Medicare welcome exam Z00.00 ; Encounter for immunization Z23 ; Arthritis M19.90 ; Medicare annual wellness visit, initial Z00.00 ; Medicare annual wellness visit, subsequent Z00.00 and Deficiency of other specified B group vitamins E53.8 [facility] [address] [facility] [id number] [address] [place] [address] May, Renal insufficiency N28.9 an d Parathyroid abnormality E21.5 [facility] [address] [facility] [id number] [address] [place] [phone] May, Renal insufficiency N28.9 [facility] [address] [facility] [id number] [address] [place] [phone] May, Renal insufficiency N28.9 [facility] [address] [facility] [id number] [address] [place] [phone] May, [facility] [address] [place] [id number] [address] [place] [phone] Apr, [facility] [address] [id number] [address] [place] [phone] 16 Apr, 2016 [facility] [address] [id number] [address] [place] [phone] 14 Apr, 2016 Mass of throat R22.1 [facility] [address] [id number] [address] [place] [id number] 10 Apr, 2016 [facility] [address] [id number] [address] [place] [phone] 10 Apr, 2016 Mass of throat R22.1 [facility] [address] [id number] [address] [place] [phone] 04 Apr, 2016 Mass of throat R22.1 [facility] [address] [id number] [address] [place] [phone] Mar, [facility] [address] [id number] [address] [place] [phone] Mar, [facility] [address] [id number] [address] [place] [phone] Mar, [facility] [address] [facility] [id number] [address] [place] [phone] 24 Mar, 2016 Parathyroid abnormality E21. 5 and Encounter for immunization Z23 [facility] [address] [facility] [id number] [address] [place] [phone] 17 Mar, 2016 [facility] [address] [facility] [id number] [address] [place] [phone] Mar, [facility] [address] [facility] [id number] [address] [place] [id number] 21 Feb, 2016 Renal insufficiency N28.9 an d Hyperparathyroidism E21.3 [facility] [address] [id number] [address] [place] [phone] 19 Feb, 2016 [facility] [address] [facility] [id number] [address] [place] [phone] 15 Feb, 2016 Renal insufficiency N28.9 an d Hyperparathyroidism E21.3 [facility] [address] [facility] [id number] [address] [place] [phone] 14 Feb, 2016 [facility] [address] [place] [id number] [address] [place] [phone] Feb, [facility] [address] [place] [id number] [address] [place] [phone] Feb, [place] [address] [place] [id number] [place] [phone] Jan, [place] [address] [place] [id number] [place] [phone] Jan, Arthritis M19.90 ; Lumbago w ith sciatica, right side M54.41 and Other chronic pain G89.29 [place] [address] [id number] Jan, [place] [address] [address] [address] Dec, Arthritis M19.90 ; Lumbago w ith sciatica, right side M54.41 and Other chronic pain G89.29 [place] [address] [address] Nov, Deficiency of other specifie d B group vitamins E53.8 ; Primary insomnia F51.01 ; Mood disorder F39 and Lumbago with sciatica, right side M54.41 [place] [address] [place] [id number] [place] [address] Nov, Hyperparathyroidism E21.3 [place] [address] [place] [id number] [place] [address] Nov, Unspecified kidney failure N 19 and Hyperparathyroidism E21.3 [place] [address] [place] [id number] [address] [place] [address] October, Hyperparathyroidism E21.3 [place] [address] [place] [id number] [place] [address] October, [facility] [address] [place] [id number] [address] [place] [address] October, Hyperparathyroidism E21.3 [facility] [address] [place] [id number] [place] [address] October, Hyperparathyroidism E21.3 [facility] [address] [address] Sep, Hyperparathyroidism E21.3 ; Hypercholesterolemia E78.0 and Arthritis M19.90 [facility] [address] [place] [id number] [place] [address] Aug, [facility] [address] [address] Aug, Deficiency of other specifie d B group vitamins E53.8 [facility] [address] [address] Aug, [facility] [address] [address] Jul, Urinary frequency R35.0 [facility] [address] [address] Jul, Urinary frequency R35.0 [facility] [address] [place] [id number] [place] [address] Jul, [facility] [address] [address] Jul, [facility] [address] [place] [id number] [address] [place] [address] Jun, Pain in left knee M25.562 [facility] [address] [place] [id number] [address] [place] [address] Jun, [facility] [address] [place] [id number] [address] [place] [address] May, Swelling of left knee joint M25.462 [facility] [address] [id number] [address] [place] [address] May, [facility] [address] [facility] [id number] [address] [place] [address] May, [facility] [address] [facility] [id number] [address] [place] [address] May, [facility] [address] [facility] [id number] [address] [place] [address] Apr, Renal insufficiency N28.9 an d Chronic kidney disease, stage 4 (severe) N18.4 [facility] [address] [facility] [id number] [address] [place] [address] Apr, Unspecified kidney failure N 19 [facility] [address] [facility] [id number] [address] [place] [address] Apr, Unspecified kidney failure N 19 [facility] [address] [facility] [id number] [address] [place] [address] Apr, [facility] [address] [facility] [id number] [address] [place] [address] Apr, Hyperparathyroidism, unspeci fied 252.00 [facility] [address] [facility] [id number] [address] [place] [address] Apr, [facility] [address] [facility] [id number] [address] [place] [address] Mar, [facility] [address] [facility] [id number] [address] [place] [address] Mar, [facility] [address] [facility] [id number] [address] [place] [address] Mar, Hyperparathyroidism, unspeci fied 252.00 [facility] [address] [facility] [id number] [address] [place] [address] Feb, [facility] [address] [facility] [id number] [address] [place] [address] Feb, Otalgia 388.70 [facility] [address] [id number] [address] [place] [address] Feb, [facility] [address] [facility] [id number] [address] [place] [address] Feb, [facility] [address] [facility] [id number] [address] [place] [address] Jan, [facility] [address] [id number] [address] [place] [address] Jan, Hyperparathyroidism, unspeci fied 252.00 [facility] [address] [id number] [address] [place] [address] Jan, [facility] [address] [facility] [id number] [address] [place] [address] Jan, Other B-complex deficiencies 266.2 and Hyperparathyroidism, unspecified 252.00 [facility] [address] [id number] [address] [place] [address] Jan, [facility] [address] [facility] [id number] [address] [place] [address] Jan, [facility] [address] [facility] [id number] [address] [place] [address] Jan, [facility] [address] [facility] [id number] [address] [place] [address] Dec, [facility] [address] [facility] [id number] [address] [place] [address] Dec, [facility] [address] [facility] [id number] [address] [place] [address] Dec, [facility] [address] [facility] [id number] [address] [place] [address] Nov, Routine check-up V70.0 and P re-op exam V72.84 [facility] [address] [id number] [address] [place] [address] Nov, [facility] [address] [id number] [address] [place] [address], [place] [address] Nov, [facility] [address] [id number] [address] [place] [address], [place] [address] October, [facility] [address] [id number] [address] [place] [address], [place] [address] October, Other B-complex deficiencies 266.2 [facility] [address] [id number] [address] [place] [address], [place] [address] October, [facility] [address] [id number] [address] [place] [address], [place] [address] Sep, [facility] [address] [id number] [address] [place] [address], [place] [address] Sep, [facility] [address] [id number] [address] [place] [address], [place] [address] Aug, [facility] [address] [id number] [address] [place] [address] Aug, [facility] [address] [id number] [address] [place] [address], [place] [address] Aug, [facility] [address] [id number] [address] [place] [address] Aug, [facility] [address] [id number] [address] [place] [address] Aug, [facility] [address] [id number] [address] [place] [address] Aug, [facility] [address] [id number] [address] [place] [address], [place] [address] Jul, [facility] [address] [id number] [address] [place] [address] Jul, [facility] [address] [id number] [address] [place] [id number] 17 Jul, 2014 [facility] [address] [id number] [address] [place] [address], [place] [address] Jul, 2014 [facility] [address] [id number] [address] [place] [address], [place] [address] Jul, 2014 [facility] [address] [id number] [address] [place] [address], [place] [address] Jul, 2014 [facility] [address] [id number] [address] [place] [address], [place] [address] Jul, 2014 [facility] [address] [id number] [address] [place] [address], [place] [address] Jul, 2014 [facility] [address] [id number] [address] [place] [address], [place] [address] Jul, 2014 [facility] [address] [id number] [address] [place] [address], [place] [address] Jul, 2014 [facility] [address] [id number] [address] [place] [address], [place] [address] Jul, 2014 [facility] [address] [id number] [address] [place] [address], [place] [address] Jul, 2014 [facility] [address] [id number] [address] [place] [address], [place] [address] Jul, [facility] [address] [id number] [address] [place] [address], [place] [address] Jul, [facility] [address] [id number] [address] [place] [address] Jun, [facility] [address] [id number] [address] [place] [address], [place] [address] Jun, [facility] [address] [id number] [address] [place] [address], [place] [address] Jun, [facility] [address] [id number] [address] [place] [address] Jun, [facility] [address] [id number] [address] [place] [address] Jun, [facility] [address] [id number] [address] [place] [address], [place] [address] Jun, [facility] [address] [id number] [address] [place] [address], [place] [address] Jun, [facility] [address] [id number] [address] [place] [address], [place] [address] Jun, [facility] [address] [id number] [address] [place] [address], [place] [address] Jun, [facility] [address] [id number] [address] [place] [address], [place] [address] Jun, [facility] [address] [id number] [address] [place] [address], [place] [address] Jun, [facility] [address] [id number] [address] [place] [address], [place] [address] Jun, [facility] [address] [id number] [address] [place] [address], [place] [address] Jun, [facility] [address] [id number] [address] [place] [address], [place] [address] Jun, [facility] [address] [id number] [address] [place] [address], [place] [address] May, [facility] [address] [id number] [address] [place] [address], [place] [address] May, [facility] [address] [id number] [address] [place] [address], [place] [address] May, [facility] [address] [id number] [address] [place] [address], [place] [address] May, [facility] [address] [id number] [address] [place] [address], [place] [address] Apr, [facility] [address] [id number] [address] [place] [address], [place] [address] Apr, [facility] [address] [id number] [address] [place] [address], [place] [address] Apr, [facility] [address] [id number] [address] [place] [address], [place] [address] Apr, [facility] [address] [id number] [address] [place] [address], [place] [address] Apr, [facility] [address] [id number] [address] [place] [address], [place] [address] Apr, [facility] [address] [id number] [address] [place] [address], [place] [address] Mar, [facility] [address] [id number] [address] [place] [address], [place] [address] Mar, [facility] [address] [id number] [address] [place] [address], [place] [address] Mar, [facility] [address] [id number] [address] [place] [address], [place] [address] Mar, [facility] [address] [id number] [address] [place] [address], [place] [address] Mar, [facility] [address] [id number] [address] [place] [address], [place] [address] Mar, [facility] [address] [id number] [address] [place] [address], [place] [address] Mar, [facility] [address] [id number] [address] [place] [address], [place] [address] Mar, [facility] [address] [id number] [address] [place] [address], [place] [address] Mar, [facility] [address] [id number] [address] [place] [address], [place] [address] Mar, [facility] [address] [id number] [address] [place] [address], [place] [address] Mar, [facility] [address] [id number] [address] [place] [address], [place] [address] Mar, [facility] [address] [id number] [address] [place] [address], [place] [address] Mar, [facility] [address] [id number] [address] [place] [address], [place] [address] Feb, [facility] [address] [id number] [address] [place] [address], [place] [address] Feb, [facility] [address] [id number] [address] [place] [address], [place] [address] Feb, [facility] [address] [id number] [address] [place] [address], [place] [address] Feb, [facility] [address] [id number] [address] [place] [address], [place] [address] Feb, [facility] [address] [id number] [address] [place] [address], [place] [address] Feb, [facility] [address] [id number] [address] [place] [address], [place] [address] Feb, [facility] [address] [id number] [address] [place] [address], [place] [address] Feb, [facility] [address] [id number] [address] [place] [address], [place] [address] Feb, [facility] [address] [id number] [address] [place] [address], [place] [address] Feb, [facility] [address] [id number] [address] [place] [address], [place] [address] Jan, [facility] [address] [id number] [address] [place] [address], [place] [address] Jan, [facility] [address] [id number] [address] [place] [address], [place] [address] Dec, [facility] [address] [id number] [address] [place] [address], [place] [address] Dec, [facility] [address] [id number] [address] [place] [address], [place] [address] Dec, [facility] [address] [id number] [facility] [address] Dec, [facility] [address] [id number] [facility] [place] [address] Dec, [facility] [address] [id number] [address] [place] [address], [place] [address] Dec, [facility] [address] [id number] [address] [place] [address], [place] [address] Nov, [facility] [address] [id number] [address] [place] [address], [place] [address] Nov, [facility] [address] [id number] [address] [place] [address], [place] [address] Nov, [facility] [address] [id number] [address] [place] [address], [place] [address] Nov, [facility] [address] [id number] [address] [place] [address], [place] [address] October, [facility] [address] [id number] [address] [place] [address], [place] [address] October, [facility] [address] [id number] [address] [place] [address], [place] [address] October, [facility] [address] [id number] [address] [place] [address], [place] [address] October, [facility] [address] [id number] [address] [place] [address], [place] [address] October, [facility] [address] [id number] [address] [place] [address], [place] [address] October, [facility] [address] [id number] [address] [place] [address], [place] [address] October, [facility] [address] [id number] [address] [place] [address], [place] [address] October, [facility] [address] [id number] [address] [place] [address], [place] [address] October, [facility] [address] [id number] [address] [place] [address], [place] [address] October, [facility] [address] [id number] [address] [place] [address], [place] [address] October, [facility] [address] [id number] [address] [place] [address], [place] [address] October, [facility] [address] [id number] [address] [place] [address], [place] [address] October, [facility] [address] [id number] [address] [place] [address], [place] [address] October, [facility] [address] [id number] [address] [place] [address], [place] [address] October, [facility] [address] [id number] [address] [place] [address], [place] [address] October, [facility] [address] [id number] [address] [place] [address], [place] [address] Sep, [facility] [address] [id number] [address] [place] [address], [place] [address] Sep, [facility] [address] [id number] [address] [place] [address], [place] [address] Sep, [facility] [address] [id number] [address] [place] [address], [place] [address] Sep, [facility] [address] [id number] [address] [place] [address], [place] [address] Sep, [facility] [address] [id number] [address] [place] [address], [place] [address] Sep, [facility] [address] [id number] [address] [place] [address], [place] [address] Aug, [facility] [address] [id number] [address] [place] [address], [place] [address] Aug, [facility] [address] [id number] [facility] [address] Aug, [facility] [address] [id number] [address] [place] [address], [place] [address] Aug, [facility] [address] [id number] [address] [place] [address], [place] [address] Aug, [facility] [address] [id number] [address] [place] [address], [place] [address] Aug, [facility] [address] [id number] [address] [place] [address], [place] [address] Jul, [facility] [address] [id number] [address] [place] [address], [place] [address] Jul, [facility] [address] [id number] [address] [place] [address], [place] [address] Jul, [facility] [address] [id number] [address] [place] [address], [place] [address] Jul, [facility] [address] [id number] [address] [place] [address], [place] [address] Jun, [facility] [address] [id number] [address] [place] [address], [place] [address] Jun, [facility] [address] [id number] [address] [place] [address], [place] [address] May, [facility] [address] [id number] [address] [place] [address], [place] [address] May, [facility] [address] [id number] [address] [place] [address], [place] [address] May, [facility] [address] [id number] [address] [place] [address], [place] [address] May, [facility] [address] [id number] [address] [place] [address], [place] [address] May, [facility] [address] [id number] [address] [place] [address], [place] [id number] 13 Apr, 2013 [facility] [address] [id number] [address] [place] [address], [place] [id number] 13 Apr, 2013 [facility] [address] [id number] [address] [place] [address], [place] [address] Apr, [facility] [address] [id number] [address] [place] [address], [place] [address] Apr, [facility] [address] [id number] [address] [place] [address], [place] [address] Apr, [facility] [address] [id number] [address] [place] [address], [place] [address] 04 Apr, 2013 [facility] [address] [id number] [address] [place] [address], [place] [address] 15 Mar, 2013 [facility] [address] [id number] [address] [place] [address], [place] [address] 15 Mar, 2013 [facility] [address] [id number] [address] [place] [address], [place] [id number] 14 Mar, 2013 [facility] [address] [id number] [address] [place] [address], [place] [address] 14 Mar, 2013 [facility] [address] [id number] [address] [place] [address], [place] [address] 11 Mar, 2013 [facility] [address] [id number] [address] [place] [address], [place] [id number] 11 Mar, 2013 [facility] [address] [id number] [address] [place] [address], [place] [id number] 23 Feb, 2013 [facility] [address] [id number] [address] [place] [address], [place] [id number] 19 Feb, 2013 [facility] [address] [id number] [address] [place] [address], [place] [id number] 04 Feb, 2013 [facility] [address] [id number] [address] [place] [address], [place] [address] Jan, [facility] [address] [id number] [address] [place] [address], [place] [address] Jan, [facility] [address] [id number] [address] [place] [address], [place] [address] Jan, [facility] [address] [id number] [address] [place] [address], [place] [address] Jan, [facility] [address] [id number] [address] [place] [address], [place] [address] Jan, [facility] [address] [id number] [address] [place] [address], [place] [address] Jan, [facility] [address] [id number] [address] [place] [address], [place] [address] Dec, [facility] [address] [id number] [address] [place] [address], [place] [address] Dec, [facility] [address] [id number] [address] [place] [address], [place] [address] Dec, [facility] [address] [id number] [address] [place] [address], [place] [address] Dec, [facility] [address] [id number] [address] [place] [address], [place] [address] Dec, [facility] [address] [id number] [address] [place] [address], [place] [address] Dec, [facility] [address] [id number] [address] [place] [address], [place] [address] Nov, [facility] [address] [id number] [address] [place] [address], [place] [address] Nov, [facility] [address] [id number] [address] [place] [address], [place] [address] Nov, [facility] [address] [id number] [address] [place] [address], [place] [id number] Nov, [facility] [address] [id number] [address] [place] [address], [place] [address] Nov, [facility] [address] [id number] [address] [place] [address], [place] [address] Nov, [facility] [address] [id number] [address] [place] [address], [place] [id number] October, [facility] [address] [id number] [address] [place] [address], [place] [address] October, [facility] [address] [id number] [address] [place] [address], [place] [address] October, [facility] [address] [id number] [address] [place] [address], [place] [address] October, [facility] [address] [id number] [address] [place] [address], [place] [address] October, [facility] [address] [id number] [address] [place] [address], [place] [id number] Sep, [facility] [facility] [address] [id number] [address] [place] [address], [place] [address] Sep, [facility] [address] [id number] [address] [place] [address], [place] [id number] Sep, [facility] [address] [id number] [address] [place] [address], [place] [address] Sep, [facility] [address] [id number] [address] [place] [address], [place] [address] Sep, [facility] [address] [id number] [address] [place] [address], [place] [address] Aug, [facility] [address] [id number] [address] [place] [address], [place] [address] Aug, [facility] [address] [id number] [address] [place] [address], [place] [id number] Aug, [facility] [address] [id number] [address] [place] [address], [place] [address] Jul, [facility] [address] [id number] [address] [place] [address], [place] [address] Jul, 2012 [facility] [address] [id number] [address] [place] [address], [place] [address] Jul, 2012 [facility] [address] [id number] [address] [place] [address], [place] [id number] 08 Jul, 2012 [facility] [address] [id number] [address] [place] [address], [place] [id number] Jul, [facility] [address] [id number] [address] [place] [address], [place] [address] Jul, [facility] [address] [id number] [address] [place] [address], [place] [address] Jun, [facility] [address] [id number] [address] [place] [address], [place] [address] Apr, [facility] [address] [id number] [address] [place] [id number] Apr, [facility] [address] [id number] [address] [place] [address], [place] [address] Apr, [facility] [address] [id number] [address] [place] [id number] Apr, [facility] [address] [id number] [address] [place] [id number] Mar, [facility] [address] [id number] [address] [place] [id number] Mar, [facility] [address] [id number] [address] [place] [id number] Mar, [facility] [address] [id number] [address] [place] [id number] Mar, [facility] [address] [id number] [address] [place] [id number] Mar, [facility] [address] [id number] [address] [place] [id number] Feb, [facility] [address] [id number] [address] [place] [id number] Jan, [facility] [address] [id number] [address] [place] [id number] Jan, [facility] [address] [id number] [address] [place] [phone] Jan, [facility] [address] [id number] [address] [place] [phone] Dec, [facility] [address] [id number] [address] [place] [phone] Nov, [facility] [address] [id number] [address] [place] [id number] Nov, [facility] [address] [id number] [address] [place] [phone] Nov, [facility] [address] [id number] [address] [place] [id number] Nov, [facility] [address] [id number] [address] [place] [phone] Nov, [facility] [address] [id number] [address] [place] [phone] October, [facility] [address] [id number] [address] [place] [id number] October, [facility] [address] [id number] [address] [place] [id number] October, [facility] [address] [id number] [address] [place] [id number] October, [facility] [address] [id number] [address] [place] [id number] October, IMMUNIZATIONS No Known Immunizations SOCIAL HISTORY [...]
--- OUTSIDE RECORDS SUMMARY | 2020-01-25 08:17 | XMS REPORT ---
Author Author Velma CORDERO Organization [facility] Address [address] [place] [address] Care Team Providers Care Head Of Stock Name Role Phone STEPHAN CORDERO Unavailable PROBLEMS Type Condition ICD9-CM Code EZZ20-JC Code Onset Dates Condition S tatus SNOMED Code Problem Corns L84 Active 530414086 Problem Primary insomnia F51.01 Active 397 2004 Problem Hyperparathyroidism E21.3 Active 54567859 Problem Hypercholesteremia E78.0 Active 1 3195154 Problem Mood disorder F39 Active 897367 05 Problem Arthritis M19.90 Active 2300343 Problem 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 Active 57302139 Problem Myalgia M79.1 Active 20559210 Problem Chronic kidney disease, stage 4 (severe) N18.4 Active 680878566 Problem Primary osteoarthritis of left knee M17.12 Active [id number] Problem Irritable bowel syndrome with both constipation and diarrh ea K58.2 Active 55056732 Problem Other chronic pain G89.29 Active 8 4308486 Problem BPV (benign positional vertigo), bilateral H81.13 Active 860384868 Problem Hyperparathyroidism, unspecified E21.3 Active 61202372 Problem 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 Active 54036886 Problem Body mass index (BMI) of 40.0-44.9 in adult Z68.41 Active 463149193 Problem Unspecified kidney failure N19 Act chip 37100142 Problem 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 Active 559375355 Problem Unspecified inflammatory spo ndylopathy, sacral and sacrococcygeal region M46.98 Active [id number] ALLERGIES No Information ENCOUNTERS Encounter Location Date Diagnosis [facility] [address] [facility] [id number] [address] [place] [phone] Nov, [facility] [address] [facility] [id number] [address] [place] [phone] October, [place] [address] [facility] [id number] [address] [place] [phone] October, Hyperparathyroidism, unspeci fied E21.3 [place] [address] [facility] [id number] [address] [place] [phone] October, Hyperparathyroidism, unspeci fied E21.3 [place] [address] [facility] [id number] [address] [place] [phone] Sep, Hyperparathyroidism, unspeci fied E21.3 [place] [address] [facility] [id number] [address] [place] [phone] Aug, Hyperparathyroidism, unspeci fied E21.3 [place] [address] [facility] [id number] [address] [place] [id number] Aug, Pain in left knee M25.562 ; Other chronic pain G89.29 ; Unspecified inflammatory spondylopathy, sacral and sacrococcygeal region M46.98 ; Chronic kidney disease, stage 4 (severe) N18.4 and Hyperparathyroidism, unspecified E21.3 [place] [address] [facility] [id number] [address] [place] [id number] Jul, [place] [address] [facility] [id number] [address] [place] [address] Jul, Arthritis M19.90 [place] [address] [place] [id number] [address] [place] [id number] Jun, Knee pain, left M25.562 [place] [address] [facility] [id number] [address] [place] [phone] May, Arthritis M19.90 [place] [address] [facility] [id number] [address] [place] [phone] Apr, Well woman exam without gyne cological exam Z00.00 and Screening for breast cancer Z12.39 [place] [address] [facility] [id number] [address] [place] [id number] Mar, Arthritis M19.90 [facility] [address] [facility] [id number] [address] [place] [address] Mar, Arthritis M19.90 [facility] [address] [facility] [id number] [address] [place] [phone] Mar, [facility] [address] [facility] [id number] [address] [place] [phone] Mar, Arthritis M19.90 and Encount er for immunization Z23 [facility] [address] [facility] [id number] [address] [place] [id number] 30 Feb, 2019 Arthritis M19.90 [facility] [address] [facility] [id number] [address] [place] [phone] Feb, [facility] [address] [place] [id number] [address] [place] [phone] Feb, Other specified disorders of bone density and structure, unspecified site M85.80 [facility] [address] [place] [id number] [address] [place] [phone] Jan, Arthritis M19.90 [facility] [address] [facility] [id number] [address] [place] [id number] Dec, Arthritis M19.90 [facility] [address] [facility] [id number] [address] [place] [phone] Nov, Inflammatory spondylopathy o f sacral region M46.98 [facility] [address] [place] [id number] [address] [place] [phone] Nov, [facility] [address] [facility] [id number] [address] [place] [address] Nov, Labyrinthitis of left ear H8 3.02 [facility] [address] [facility] [id number] [address] [place] [address] Nov, Arthritis M19.90 [facility] [address] [place] [id number] [address] [place] [id number] Sep, Arthritis M19.90 [facility] [address] [facility] [id number] [address] [place] [id number] 08 Sep, 2018 Renal insufficiency N28.9 an d Unspecified kidney failure N19 [facility] [address] [facility] [id number] [address] [place] [phone] 08 Sep, 2018 Renal insufficiency N28.9 an d Unspecified kidney failure N19 [place] [address] [facility] [id number] [address] [place] [id number] 08 Sep, 2018 Arthritis M19.90 [place] [address] [facility] [id number] [address] [place] [phone] Aug, Exercise counseling Z71.82 [place] [address] [facility] [id number] [address] [place] [phone] Aug, [place] [address] [facility] [id number] [address] [place] [phone] 27 Jul, 2018 Labyrinthitis of left ear H8 3.02 [place] [address] [facility] [id number] [address] [place] [phone] Jul, Labyrinthitis of left ear H8 3.02 [place] [address] [facility] [id number] [address] [place] [id number] 19 Jul, 2018 Exercise counseling Z71.82 [place] [address] [facility] [id number] [address] [place] [id number] 18 Jul, 2018 [place] [address] [facility] [id number] [address] [place] [id number] 14 Jul, 2018 Arthritis M19.90 [place] [address] [facility] [id number] [address] [place] [phone] 13 Jul, 2018 Encounter for Medicare annua wellness exam Z00.00 ; Chronic kidney disease, stage 4 (severe) N18.4 ; Body mass index (BMI) of 40.0-44.9 in adult Z68.41 ; Hyperparathyroidism E21.3 and BMI 40.0-44.9, adult Z68.41 [place] [address] [facility] [id number] [address] [place] [id number] 13 Jul, 2018 Encounter for Medicare wolf l wellness exam Z00.00 ; Chronic kidney disease, stage 4 (severe) N18.4 ; Hyperparathyroidism E21.3 ; Body mass index (BMI) of 40.0-44.9 in adult Z68.41 and Encounter for immunization Z23 [place] [address] [facility] [id number] [address] [place] [id number] 11 Jul, 2018 Tail bone pain M53.3 [place] [address] [facility] [id number] [address] [place] [phone] Jun, Exercise counseling Z71.82 [place] [address] [place] [id number] [place] [phone] Jun, Labyrinthitis of left ear H8 3.02 [place] [address] [place] [id number] [place] [phone] Jun, Tail bone pain M53.3 ; Irrit able bowel syndrome with both constipation and diarrhea K58.2 and Dysfunction of left eustachian tube H69.82 [place] [address] [place] [id number] [address] [place] [phone] Jun, Exercise counseling Z71.82 [place] [address] [place] [id number] [address] [place] [address] Jun, Arthritis M19.90 [place] [address] [facility] [id number] [address] [place] [phone] Jun, Irritable bowel syndrome wit h both constipation and diarrhea K58.2 ; Tail bone pain M53.3 and Dysfunction of left eustachian tube H69.82 [place] [address] [facility] [id number] [address] [place] [phone] Jun, Exercise counseling Z71.82 [place] [address] [facility] [id number] [address] [place] [phone] Jun, Exercise counseling Z71.82 [place] [address] [id number] [address] [place] [phone] 02 Jun, 2018 Labyrinthitis of left ear H8 3.02 [facility] [address] [id number] [address] [place] [id number] May, Exercise counseling Z71.82 [facility] [address] [id number] [address] [place] [phone] May, Arthritis M19.90 [facility] [address] [id number] [address] [place] [phone] May, Exercise counseling Z71.82 [facility] [address] [id number] [address] [place] [phone] May, Exercise counseling Z71.82 [facility] [address] [id number] [address] [place] [phone] May, Labyrinthitis of left ear H8 3.02 [facility] [address] [id number] [address] [place] [phone] May, Exercise counseling Z71.82 [facility] [address] [id number] [address] [place] [id number] Apr, Arthritis M19.90 [facility] [address] [id number] [address] [place] [phone] Apr, Exercise counseling Z71.82 [facility] [address] [id number] [address] [place] [address] Apr, Exercise counseling Z71.82 [facility] [address] [id number] [address] [place] [id number] Apr, Primary osteoarthritis of le ft knee M17.12 [facility] [address] [id number] [address] [place] [phone] Apr, Labyrinthitis of left ear H8 3.02 [facility] [address] [id number] [address] [place] [id number] Mar, Arthritis M19.90 [facility] [address] [facility] [id number] [address] [place] [phone] Mar, [facility] [address] [facility] [id number] [address] [place] [phone] Mar, Chronic kidney disease, stag e 4 (severe) N18.4 [facility] [address] [place] [id number] [place] [phone] Mar, Chronic kidney disease, stag e 4 (severe) N18.4 [facility] [address] [facility] [id number] [address] [place] [phone] Mar, Labyrinthitis of left ear H8 3.02 [facility] [address] [place] [id number] [address] [place] [phone] Mar, Chronic kidney disease, stag e 4 (severe) N18.4 ; Knee pain, left anterior M25.562 ; Deficiency of other specified B group vitamins E53.8 and Encounter for immunization Z23 [facility] [address] [place] [id number] [address] [place] [phone] Mar, Arthritis M19.90 [facility] [address] [place] [id number] [address] [place] [phone] Feb, Labyrinthitis of left ear H8 3.02 [facility] [address] [place] [id number] [address] [place] [address] Feb, Arthritis M19.90 [facility] [address] [facility] [id number] [address] [place] [address] Jan, Labyrinthitis of left ear H8 3.02 [facility] [address] [facility] [id number] [address] [place] [address] Jan, Arthritis M19.90 [facility] [address] [place] [id number] [address] [place] [phone] Dec, Labyrinthitis of left ear H8 3.02 [place] [address] [facility] [id number] [address] [place] [address] Nov, Arthritis M19.90 [place] [address] [facility] [id number] [address] [place] [phone] Nov, Labyrinthitis of left ear H8 3.02 [place] [address] [place] [id number] [address] [place] [address] Nov, BMI 40.0-44.9, adult Z68.41 ; Chronic kidney disease, stage 4 (severe) N18.4 and Acute right-sided thoracic back pain M54.6 [place] [address] [place] [id number] [place] [address] October, Labyrinthitis of left ear H8 3.02 and Arthritis M19.90 [place] [address] [place] [id number] [address] [place] [id number] Sep, BPV (benign positional verti go), bilateral H81.13 ; Dysfunction of left eustachian tube H69.82 and BMI 40.0-44.9, adult Z68.41 [place] [address] [place] [id number] [place] [id number] Sep, Labyrinthitis of left ear H8 3.02 and Arthritis M19.90 [place] [address] [place] [id number] [address] [place] [id number] Sep, [place] [address] [place] [id number] [address] [place] [address] Sep, [place] [address] [place] [id number] [address] [place] [address] Sep, Chronic kidney disease, stag e 4 (severe) N18.4 [place] [address] [place] [id number] [address] [place] [id number] Sep, Chronic kidney disease, stag e 4 (severe) N18.4 [place] [address] [place] [id number] [address] [place] [phone] Aug, Labyrinthitis of left ear H8 3.02 and Arthritis M19.90 [facility] [address] [facility] [id number] [address] [place] [phone] Aug, [facility] [address] [id number] [address] [place] [address] Jul, [facility] [address] [facility] [id number] [address] [place] [address] Jul, Arthritis M19.90 and Labyrin thitis of left ear H83.02 [facility] [address] [id number] [address] [place] [phone] Jul, [facility] [address] [facility] [id number] [address] [place] [id number] Jun, [facility] [address] [facility] [id number] [address] [place] [address] Jun, Arthritis M19.90 and Labyrin thitis of left ear H83.02 [facility] [address] [facility] [id number] [address] [place] [address] Jun, Pre-op evaluation Z01.818 ; BMI 40.0-44.9, adult Z68.41 and Encounter for immunization Z23 [facility] [address] [facility] [id number] [address] [place] [address] May, Arthritis M19.90 and Labyrin thitis of left ear H83.02 [facility] [address] [facility] [id number] [address] [place] [phone] Apr, Labyrinthitis of left ear H8 3.02 [facility] [address] [facility] [id number] [address] [place] [address] Apr, Arthritis M19.90 and Labyrin thitis of left ear H83.02 [facility] [address] [facility] [id number] [address] [place] [address] Mar, Arthritis M19.90 and Labyrin thitis of left ear H83.02 [facility] [address] [id number] [address] [place] [id number] 05 Mar, 2017 Chronic kidney disease, stag e 4 (severe) N18.4 [facility] [address] [id number] [address] [place] [id number] 06 Feb, 2017 Arthritis M19.90 and Labyrin thitis of left ear H83.02 [facility] [address] [id number] [address] [place] [id number] 10 Jan, 2017 Labyrinthitis of left ear H8 3.02 and Deficiency of other specified B group vitamins E53.8 [facility] [address] [id number] [address] [place] [address] Dec, Arthritis M19.90 [facility] [address] [id number] [address] [place] [id number] Dec, BPV (benign positional verti go), bilateral H81.13 [facility] [address] [id number] [address] [place] [phone] Dec, [facility] [address] [id number] [address] [place] [phone] Dec, [facility] [address] [facility] [id number] [address] [place] [phone] Dec, [facility] [address] [id number] [address] [place] [address] Nov, Arthritis M19.90 and Deficie ncy of other specified B group vitamins E53.8 [facility] [address] [id number] [address] [place] [address] Nov, Arthritis M19.90 [facility] [address] [id number] [address] [place] [address] Nov, Hyperparathyroidism E21.3 [facility] [address] [facility] [id number] [address] [place] [address] October, [facility] [address] [facility] [id number] [address] [place] [id number] October, Hyperparathyroidism E21.3 [facility] [address] [facility] [id number] [address] [place] [address] October, [facility] [address] [facility] [id number] [address] [place] [phone] October, Renal insufficiency N28.9 an d Hyperparathyroidism E21.3 [facility] [address] [facility] [id number] [address] [place] [phone] October, [facility] [address] [facility] [id number] [address] [place] [address] October, Renal insufficiency N28.9 an d Hyperparathyroidism E21.3 [facility] [address] [facility] [id number] [address] [place] [address] October, Arthritis M19.90 [facility] [address] [facility] [id number] [address] [place] [id number] Sep, [facility] [address] [facility] [id number] [address] [place] [id number] Sep, Lumbar neuritis M54.16 ; Tho racic abscess J86.9 and Deficiency of other specified B group vitamins E53.8 [facility] [address] [facility] [id number] [address] [place] [address] Sep, [facility] [address] [facility] [id number] [address] [place] [address] Aug, Arthritis M19.90 [facility] [address] [facility] [id number] [address] [place] [address] Aug, Hyperparathyroidism E21.3 [facility] [address] [facility] [id number] [address] [place] [address] Aug, Hyperparathyroidism E21.3 [facility] [address] [place] [id number] [address] [place] [id number] Aug, Arthritis M19.90 [facility] [address] [facility] [id number] [address] [place] [address] Jul, Mass of throat R22.1 [facility] [address] [facility] [id number] [address] [place] [id number] Jul, [facility] [address] [facility] [id number] [address] [place] [address] Jul, Arthritis M19.90 [facility] [address] [facility] [id number] [address] [place] [id number] Jun, Arthritis M19.90 [facility] [address] [place] [id number] [address] [place] [phone] Jun, [facility] [address] [facility] [id number] [address] [place] [address] Jun, Renal insufficiency N28.9 an d Parathyroid abnormality E21.5 [facility] [address] [facility] [id number] [address] [place] [id number] 05 Jun, 2016 Medicare welcome exam Z00.00 ; Encounter for immunization Z23 ; Arthritis M19.90 ; Medicare annual wellness visit, initial Z00.00 ; Medicare annual wellness visit, subsequent Z00.00 and Deficiency of other specified B group vitamins E53.8 [facility] [address] [facility] [id number] [address] [place] [phone] May, Renal insufficiency N28.9 an d Parathyroid abnormality E21.5 [facility] [address] [facility] [id number] [address] [place] [address] May, Renal insufficiency N28.9 [facility] [address] [facility] [id number] [address] [place] [id number] May, Renal insufficiency N28.9 [facility] [address] [facility] [id number] [address] [place] [phone] May, [facility] [address] [place] [id number] [address] [place] [phone] Apr, [facility] [address] [id number] [address] [place] [phone] 16 Apr, 2016 [facility] [address] [id number] [address] [place] [id number] 14 Apr, 2016 Mass of throat R22.1 [facility] [address] [id number] [address] [place] [id number] 10 Apr, 2016 [facility] [address] [id number] [address] [place] [id number] 10 Apr, 2016 Mass of throat R22.1 [facility] [address] [id number] [address] [place] [id number] 04 Apr, 2016 Mass of throat R22.1 [facility] [address] [id number] [address] [place] [phone] Mar, [facility] [address] [id number] [address] [place] [phone] Mar, [facility] [address] [id number] [address] [place] [phone] Mar, [facility] [address] [facility] [id number] [address] [place] [phone] 24 Mar, 2016 Parathyroid abnormality E21. 5 and Encounter for immunization Z23 [facility] [address] [facility] [id number] [address] [place] [phone] 17 Mar, 2016 [facility] [address] [facility] [id number] [address] [place] [id number] Mar, [facility] [address] [facility] [id number] [address] [place] [phone] 21 Feb, 2016 Renal insufficiency N28.9 an d Hyperparathyroidism E21.3 [facility] [address] [id number] [address] [place] [phone] 19 Feb, 2016 [facility] [address] [facility] [id number] [address] [place] [phone] 15 Feb, 2016 Renal insufficiency N28.9 an d Hyperparathyroidism E21.3 [facility] [address] [facility] [id number] [address] [place] [phone] 14 Feb, 2016 [facility] [address] [place] [id number] [address] [place] [phone] Feb, [facility] [address] [place] [id number] [address] [place] [phone] Feb, [place] [address] [place] [id number] [place] [phone] Jan, [place] [address] [place] [id number] [place] [id number] Jan, Arthritis M19.90 ; Lumbago w ith sciatica, right side M54.41 and Other chronic pain G89.29 [place] [address] [id number] Jan, [place] [address] [id number] Dec, Arthritis M19.90 ; Lumbago w ith sciatica, right side M54.41 and Other chronic pain G89.29 [place] [address] [id number] Nov, Deficiency of other specifie d B group vitamins E53.8 ; Primary insomnia F51.01 ; Mood disorder F39 and Lumbago with sciatica, right side M54.41 [place] [address] [place] [id number] [address] [place] [address] Nov, Hyperparathyroidism E21.3 [place] [address] [place] [id number] [place] [address] Nov, Unspecified kidney failure N 19 and Hyperparathyroidism E21.3 [place] [address] [place] [id number] [address] [place] [address] October, Hyperparathyroidism E21.3 [place] [address] [place] [id number] [place] [address] October, [facility] [address] [place] [id number] [address] [place] [address] October, Hyperparathyroidism E21.3 [facility] [address] [place] [id number] [place] [address] October, Hyperparathyroidism E21.3 [facility] [address] [address] Sep, Hyperparathyroidism E21.3 ; Hypercholesterolemia E78.0 and Arthritis M19.90 [facility] [address] [place] [id number] [place] [address] Aug, [facility] [address] [address] Aug, Deficiency of other specifie d B group vitamins E53.8 [facility] [address] [address] Aug, [facility] [address] [address] Jul, Urinary frequency R35.0 [facility] [address] [address] Jul, Urinary frequency R35.0 [facility] [address] [place] [id number] [place] [address] Jul, [facility] [address] [address] Jul, [facility] [address] [place] [id number] [address] [place] [address] Jun, Pain in left knee M25.562 [facility] [address] [place] [id number] [address] [place] [address] Jun, [facility] [address] [place] [id number] [address] [place] [address] May, Swelling of left knee joint M25.462 [facility] [address] [id number] [address] [place] [address] May, [facility] [address] [facility] [id number] [address] [place] [address] May, [facility] [address] [facility] [id number] [address] [place] [address] May, [facility] [address] [facility] [id number] [address] [place] [address] Apr, Renal insufficiency N28.9 an d Chronic kidney disease, stage 4 (severe) N18.4 [facility] [address] [facility] [id number] [address] [place] [address] Apr, Unspecified kidney failure N 19 [facility] [address] [facility] [id number] [address] [place] [address] Apr, Unspecified kidney failure N 19 [facility] [address] [facility] [id number] [address] [place] [address] Apr, [facility] [address] [facility] [id number] [address] [place] [address] Apr, Hyperparathyroidism, unspeci fied 252.00 [facility] [address] [facility] [id number] [address] [place] [address] Apr, [facility] [address] [facility] [id number] [address] [place] [address] Mar, [facility] [address] [facility] [id number] [address] [place] [address] Mar, [facility] [address] [facility] [id number] [address] [place] [address] Mar, Hyperparathyroidism, unspeci fied 252.00 [facility] [address] [facility] [id number] [address] [place] [address] Feb, [facility] [address] [facility] [id number] [address] [place] [address] Feb, Otalgia 388.70 [facility] [address] [id number] [address] [place] [address] Feb, [facility] [address] [facility] [id number] [address] [place] [id number] Feb, [facility] [address] [facility] [id number] [address] [place] [address] Jan, [facility] [address] [id number] [address] [place] [address] Jan, Hyperparathyroidism, unspeci fied 252.00 [facility] [address] [id number] [address] [place] [address] Jan, [facility] [address] [facility] [id number] [address] [place] [address] Jan, Other B-complex deficiencies 266.2 and Hyperparathyroidism, unspecified 252.00 [facility] [address] [id number] [address] [place] [address] Jan, [facility] [address] [facility] [id number] [address] [place] [address] Jan, [facility] [address] [facility] [id number] [address] [place] [phone] Jan, [facility] [address] [facility] [id number] [address] [place] [address] Dec, [facility] [address] [facility] [id number] [address] [place] [address] Dec, [facility] [address] [facility] [id number] [address] [place] [address] Dec, [facility] [address] [facility] [id number] [address] [place] [address] Nov, Routine check-up V70.0 and P re-op exam V72.84 [facility] [address] [id number] [address] [place] [address] Nov, [facility] [address] [id number] [address] [place] [address], [place] [address] Nov, [facility] [address] [id number] [address] [place] [address], [place] [address] October, [facility] [address] [id number] [address] [place] [address], [place] [address] October, Other B-complex deficiencies 266.2 [facility] [address] [id number] [address] [place] [address], [place] [address] October, [facility] [address] [id number] [address] [place] [address], [place] [address] Sep, [facility] [address] [id number] [address] [place] [address], [place] [address] Sep, [facility] [address] [id number] [address] [place] [address], [place] [address] Aug, [facility] [address] [id number] [address] [place] [id number] Aug, [facility] [address] [id number] [address] [place] [address], [place] [address] Aug, [facility] [address] [id number] [address] [place] [phone] Aug, [facility] [address] [id number] [address] [place] [address] Aug, [facility] [address] [id number] [address] [place] [phone] Aug, [facility] [address] [id number] [address] [place] [address], [place] [address] Jul, [facility] [address] [id number] [address] [place] [address] Jul, [facility] [address] [id number] [address] [place] [id number] 17 Jul, 2014 [facility] [address] [id number] [address] [place] [address], [place] [address] Jul, 2014 [facility] [address] [id number] [address] [place] [address], [place] [address] Jul, 2014 [facility] [address] [id number] [address] [place] [address], [place] [address] Jul, 2014 [facility] [address] [id number] [address] [place] [address], [place] [address] Jul, 2014 [facility] [address] [id number] [address] [place] [address], [place] [address] Jul, 2014 [facility] [address] [id number] [address] [place] [address], [place] [address] Jul, 2014 [facility] [address] [id number] [address] [place] [address], [place] [address] Jul, 2014 [facility] [address] [id number] [address] [place] [address], [place] [address] Jul, 2014 [facility] [address] [id number] [address] [place] [address], [place] [address] Jul, 2014 [facility] [address] [id number] [address] [place] [address], [place] [address] Jul, [facility] [address] [id number] [address] [place] [address], [place] [address] Jul, [facility] [address] [id number] [address] [place] [address] Jun, [facility] [address] [id number] [address] [place] [address], [place] [address] Jun, [facility] [address] [id number] [address] [place] [address], [place] [address] Jun, [facility] [address] [id number] [address] [place] [address] Jun, [facility] [address] [id number] [address] [place] [address] Jun, [facility] [address] [id number] [address] [place] [address], [place] [address] Jun, [facility] [address] [id number] [address] [place] [address], [place] [address] Jun, [facility] [address] [id number] [address] [place] [address], [place] [address] Jun, [facility] [address] [id number] [address] [place] [address], [place] [address] Jun, [facility] [address] [id number] [address] [place] [address], [place] [address] Jun, [facility] [address] [id number] [address] [place] [address], [place] [address] Jun, [facility] [address] [id number] [address] [place] [address], [place] [address] Jun, [facility] [address] [id number] [address] [place] [address], [place] [address] Jun, [facility] [address] [id number] [address] [place] [address], [place] [address] Jun, [facility] [address] [id number] [address] [place] [address], [place] [address] May, [facility] [address] [id number] [address] [place] [address], [place] [address] May, [facility] [address] [id number] [address] [place] [address], [place] [address] May, [facility] [address] [id number] [address] [place] [address], [place] [address] May, [facility] [address] [id number] [address] [place] [address], [place] [address] Apr, [facility] [address] [id number] [address] [place] [address], [place] [address] Apr, [facility] [address] [id number] [address] [place] [address], [place] [address] Apr, [facility] [address] [id number] [address] [place] [address], [place] [address] Apr, [facility] [address] [id number] [address] [place] [address], [place] [address] Apr, [facility] [address] [id number] [address] [place] [address], [place] [address] Apr, [facility] [address] [id number] [address] [place] [address], [place] [address] Mar, [facility] [address] [id number] [address] [place] [address], [place] [address] Mar, [facility] [address] [id number] [address] [place] [address], [place] [address] Mar, [facility] [address] [id number] [address] [place] [address], [place] [address] Mar, [facility] [address] [id number] [address] [place] [address], [place] [address] Mar, [facility] [address] [id number] [address] [place] [address], [place] [address] Mar, [facility] [address] [id number] [address] [place] [address], [place] [address] Mar, [facility] [address] [id number] [address] [place] [address], [place] [address] Mar, [facility] [address] [id number] [address] [place] [address], [place] [address] Mar, [facility] [address] [id number] [address] [place] [address], [place] [address] Mar, [facility] [address] [id number] [address] [place] [address], [place] [address] Mar, [facility] [address] [id number] [address] [place] [address], [place] [address] Mar, [facility] [address] [id number] [address] [place] [address], [place] [address] Mar, [facility] [address] [id number] [address] [place] [address], [place] [address] Feb, [facility] [address] [id number] [address] [place] [address], [place] [address] Feb, [facility] [address] [id number] [address] [place] [address], [place] [address] Feb, [facility] [address] [id number] [address] [place] [address], [place] [address] Feb, [facility] [address] [id number] [address] [place] [address], [place] [address] Feb, [facility] [address] [id number] [address] [place] [address], [place] [address] Feb, [facility] [address] [id number] [address] [place] [address], [place] [address] Feb, [facility] [address] [id number] [address] [place] [address], [place] [address] Feb, [facility] [address] [id number] [address] [place] [address], [place] [address] Feb, [facility] [address] [id number] [address] [place] [address], [place] [address] Feb, [facility] [address] [id number] [address] [place] [address], [place] [address] Jan, [facility] [address] [id number] [address] [place] [address], [place] [address] Jan, [facility] [address] [id number] [address] [place] [address], [place] [address] Dec, [facility] [address] [id number] [address] [place] [address], [place] [address] Dec, [facility] [address] [id number] [address] [place] [address], [place] [address] Dec, [facility] [address] [id number] [facility] [place] [address] Dec, [facility] [address] [id number] [facility] [place] [address] Dec, [facility] [address] [id number] [address] [place] [address], [place] [address] Dec, [facility] [address] [id number] [address] [place] [address], [place] [address] Nov, [facility] [address] [id number] [address] [place] [address], [place] [address] Nov, [facility] [address] [id number] [address] [place] [address], [place] [address] Nov, [facility] [address] [id number] [address] [place] [address], [place] [address] Nov, [facility] [address] [id number] [address] [place] [address], [place] [address] October, [facility] [address] [id number] [address] [place] [address], [place] [address] October, [facility] [address] [id number] [address] [place] [address], [place] [address] October, [facility] [address] [id number] [address] [place] [address], [place] [address] October, [facility] [address] [id number] [address] [place] [address], [place] [address] October, [facility] [address] [id number] [address] [place] [address], [place] [address] October, [facility] [address] [id number] [address] [place] [address], [place] [address] October, [facility] [address] [id number] [address] [place] [address], [place] [address] October, [facility] [address] [id number] [address] [place] [address], [place] [address] October, [facility] [address] [id number] [address] [place] [address], [place] [address] October, [facility] [address] [id number] [address] [place] [address], [place] [address] October, [facility] [address] [id number] [address] [place] [address], [place] [address] October, [facility] [address] [id number] [address] [place] [address], [place] [address] October, [facility] [address] [id number] [address] [place] [address], [place] [address] October, [facility] [address] [id number] [address] [place] [address], [place] [address] October, [facility] [address] [id number] [address] [place] [address], [place] [address] October, [facility] [address] [id number] [address] [place] [address], [place] [address] Sep, [facility] [address] [id number] [address] [place] [address], [place] [address] Sep, [facility] [address] [id number] [address] [place] [address], [place] [address] Sep, [facility] [address] [id number] [address] [place] [address], [place] [address] Sep, [facility] [address] [id number] [address] [place] [address], [place] [address] Sep, [facility] [address] [id number] [address] [place] [address], [place] [address] Sep, [facility] [address] [id number] [address] [place] [address], [place] [address] Aug, [facility] [address] [id number] [address] [place] [address], [place] [address] Aug, [facility] [address] [id number] [facility] [address] Aug, [facility] [address] [id number] [address] [place] [address], [place] [address] Aug, [facility] [address] [id number] [address] [place] [address], [place] [address] Aug, [facility] [address] [id number] [address] [place] [address], [place] [address] Aug, [facility] [address] [id number] [address] [place] [address], [place] [address] Jul, [facility] [address] [id number] [address] [place] [address], [place] [address] Jul, [facility] [address] [id number] [address] [place] [address], [place] [address] Jul, [facility] [address] [id number] [address] [place] [address], [place] [address] Jul, [facility] [address] [id number] [address] [place] [address], [place] [address] Jun, [facility] [address] [id number] [address] [place] [address], [place] [address] Jun, [facility] [address] [id number] [address] [place] [address], [place] [address] May, [facility] [address] [id number] [address] [place] [address], [place] [address] May, [facility] [address] [id number] [address] [place] [address], [place] [address] May, [facility] [address] [id number] [address] [place] [address], [place] [address] May, [facility] [address] [id number] [address] [place] [address], [place] [address] May, [facility] [address] [id number] [address] [place] [address], [place] [address] 13 Apr, 2013 [facility] [address] [id number] [address] [place] [address], [place] [address] 13 Apr, 2013 [facility] [address] [id number] [address] [place] [address], [place] [address] Apr, [facility] [address] [id number] [address] [place] [address], [place] [address] Apr, [facility] [address] [id number] [address] [place] [address], [place] [address] Apr, [facility] [address] [id number] [address] [place] [address], [place] [address] 04 Apr, 2013 [facility] [address] [id number] [address] [place] [address], [place] [address] 15 Mar, 2013 [facility] [address] [id number] [address] [place] [address], [place] [address] 15 Mar, 2013 [facility] [address] [id number] [address] [place] [address], [place] [address] 14 Mar, 2013 [facility] [address] [id number] [address] [place] [address], [place] [address] 14 Mar, 2013 [facility] [address] [id number] [address] [place] [address], [place] [address] 11 Mar, 2013 [facility] [address] [id number] [address] [place] [address], [place] [address] 11 Mar, 2013 [facility] [address] [id number] [address] [place] [address], [place] [address] 23 Feb, 2013 [facility] [address] [id number] [address] [place] [address], [place] [address] 19 Feb, 2013 [facility] [address] [id number] [address] [place] [address], [place] [address] 04 Feb, 2013 [facility] [address] [id number] [address] [place] [address], [place] [address] Jan, [facility] [address] [id number] [address] [place] [address], [place] [address] Jan, [facility] [address] [id number] [address] [place] [address], [place] [address] Jan, [facility] [address] [id number] [address] [place] [address], [place] [address] Jan, [facility] [address] [id number] [address] [place] [address], [place] [address] Jan, [facility] [address] [id number] [address] [place] [address], [place] [address] Jan, [facility] [address] [id number] [address] [place] [address], [place] [address] Dec, [facility] [address] [id number] [address] [place] [address], [place] [address] Dec, [facility] [address] [id number] [address] [place] [address], [place] [address] Dec, [facility] [address] [id number] [address] [place] [address], [place] [address] Dec, [facility] [address] [id number] [address] [place] [address], [place] [address] Dec, [facility] [address] [id number] [address] [place] [address], [place] [address] Dec, [facility] [address] [id number] [address] [place] [address], [place] [address] Nov, [facility] [address] [id number] [address] [place] [address], [place] [address] Nov, [facility] [address] [id number] [address] [place] [address], [place] [address] Nov, [facility] [address] [id number] [address] [place] [address], [place] [address] Nov, [facility] [address] [id number] [address] [place] [address], [place] [address] Nov, [facility] [address] [id number] [address] [place] [address], [place] [address] Nov, [facility] [address] [id number] 50 [place] [address], [place] [address] October, [facility] [address] [id number] [address] [place] [address], [place] [address] October, [facility] [address] [id number] [address] [place] [address], [place] [address] October, [facility] [address] [id number] [address] [place] [address], [place] [address] October, [facility] [address] [id number] [address] [place] [address], [place] [address] October, [facility] [address] [id number] [address] [place] [address], [place] [address] Sep, [facility] [address] [id number] [address] [place] [address], [place] [address] Sep, [facility] [address] [id number] [address] [place] [address], [place] [address] Sep, [facility] [address] [id number] [address] [place] [address], [place] [address] Sep, [facility] [address] [id number] [address] [place] [address], [place] [address] Sep, [facility] [address] [id number] [address] [place] [address], [place] [address] Aug, [facility] [address] [id number] [address] [place] [address], [place] [address] Aug, [facility] [address] [id number] [address] [place] [address], [place] [address] Aug, [facility] [address] [id number] [address] [place] [address], [place] [address] Jul, [facility] [address] [id number] [address] [place] [address], [place] [address] Jul, 2012 [facility] [address] [id number] [address] [place] [address], [place] [address] Jul, 2012 [facility] [address] [id number] [address] [place] [address], [place] [id number] 08 Jul, 2012 [facility] [address] [id number] [address] [place] [address], [place] [address] Jul, [facility] [address] [id number] [address] [place] [address], [place] [address] Jul, [facility] [address] [id number] [address] [place] [address], [place] [address] Jun, [facility] [address] [id number] [address] [place] [address], [place] [address] Apr, [facility] [address] [id number] [address] [place] [phone] Apr, [facility] [address] [id number] [address] [place] [address], [place] [address] Apr, [facility] [address] [id number] [address] [place] [id number] Apr, [facility] [address] [id number] [address] [place] [id number] Mar, [facility] [address] [id number] [address] [place] [id number] Mar, [facility] [address] [id number] [address] [place] [id number] Mar, [facility] [address] [id number] [address] [place] [id number] Mar, [facility] [address] [id number] [address] [place] [id number] Mar, [facility] [address] [id number] [address] [place] [id number] Feb, [facility] [address] [id number] [address] [place] [id number] Jan, [facility] [address] [id number] [address] [place] [id number] Jan, [facility] [address] [id number] [address] [place] [id number] Jan, [facility] [address] [id number] [address] [place] [id number] Dec, [facility] [address] [id number] [address] [place] [phone] Nov, [facility] [address] [id number] [address] [place] [id number] Nov, [facility] [address] [id number] [address] [place] [id number] Nov, [facility] [address] [id number] [address] [place] [phone] Nov, [facility] [address] [id number] [address] [place] [id number] Nov, [facility] [address] [id number] [address] [place] [id number] October, [facility] [address] [id number] [address] [place] [id number] October, [facility] [address] [id number] [address] [place] [phone] October, [facility] [address] [id number] [address] [place] [id number] October, [facility] [address] [id number] [address] [place] [phone] October, IMMUNIZATIONS No Known Immunizations SOCIAL HISTORY Never Assessed REASON FOR VISIT PLAN OF CARE VITAL SIGNS MEDICATIONS Unknown Medications RESULTS No Results PROCEDURES Procedure Date Ordered Result Body Site BASIC METABOLIC PANEL Apr 08, 2013 VENIPUNCT, ROUTINE* Apr 08, 2013 INSTRUCTIONS MEDICATIONS ADMINISTERED No Known Medications [...]
--- OUTSIDE RECORDS SUMMARY | 2020-01-25 08:17 | XMS REPORT ---
Author Author Velma CORDERO Organization [facility] Address [address] [place] [address] Care Team Providers Care Accounts Receivable Administrator Name Role Phone STEPHAN CORDERO Unavailable PROBLEMS Type Condition ICD9-CM Code UJK12-KG Code Onset Dates Condition S tatus SNOMED Code Problem Corns L84 Active 116634257 Problem Primary insomnia F51.01 Active 397 2004 Problem Hyperparathyroidism E21.3 Active 73981608 Problem Hypercholesteremia E78.0 Active 1 1139326 Problem Mood disorder F39 Active 930906 05 Problem Arthritis M19.90 Active 3403882 Problem 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 Active 83162622 Problem Myalgia M79.1 Active 51575178 Problem Chronic kidney disease, stage 4 (severe) N18.4 Active 974903312 Problem Primary osteoarthritis of left knee M17.12 Active 627304082235163 Problem Irritable bowel syndrome with both constipation and diarrh ea K58.2 Active 15544189 Problem Other chronic pain G89.29 Active 8 3216431 Problem BPV (benign positional vertigo), bilateral H81.13 Active 435436366 Problem Hyperparathyroidism, unspecified E21.3 Active 67667425 Problem 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 [address] [facility] [id number] [address] [place] [id number] 11 Nov, 2019 [facility] [address] [facility] [id number] [address] [place] [address] 15 Oct, 2019 Hyperparathyroidism, unspeci fied E21.3 [place] [address] [id number] [address] [place] [address] October, Hyperparathyroidism, unspeci fied E21.3 [facility] [address] [id number] [address] [place] [address] Sep, Hyperparathyroidism, unspeci fied E21.3 [place] [address] [facility] [id number] [address] [place] [address] Aug, Hyperparathyroidism, unspeci fied E21.3 [place] [address] [facility] [id number] [address] [place] [address] Aug, Pain in left knee M25.562 ; Other chronic pain G89.29 ; Unspecified inflammatory spondylopathy, sacral and sacrococcygeal region M46.98 ; Chronic kidney disease, stage 4 (severe) N18.4 and Hyperparathyroidism, unspecified E21.3 [place] [address] [facility] [id number] [address] [place] [address] Jul, [place] [address] [facility] [id number] [address] [place] [address] Jul, Arthritis M19.90 [place] [address] [facility] [id number] [address] [place] [address] Jun, Knee pain, left M25.562 [place] [address] [facility] [id number] [address] [place] [address] May, Arthritis M19.90 [place] [address] [facility] [id number] [address] [place] [address] Apr, Well woman exam without gyne cological exam Z00.00 and Screening for breast cancer Z12.39 [place] [address] [facility] [id number] [address] [place] [address] Mar, Arthritis M19.90 [place] [address] [facility] [id number] [address] [place] [address] Mar, Arthritis M19.90 [facility] [address] [id number] [address] [place] [address] Mar, [facility] [address] [facility] [id number] [address] [place] [address] Mar, Arthritis M19.90 and Encount er for immunization Z23 [facility] [address] [facility] [id number] [address] [place] [address] Feb, Arthritis M19.90 [facility] [address] [facility] [id number] [address] [place] [address] Feb, [facility] [address] [facility] [id number] [address] [place] [address] Feb, Other specified disorders of bone density and structure, unspecified site M85.80 [facility] [address] [facility] [id number] [address] [place] [address] Jan, Arthritis M19.90 [facility] [address] [facility] [id number] [address] [place] [address] Dec, Arthritis M19.90 [facility] [address] [facility] [id number] [address] [place] [address] Nov, Inflammatory spondylopathy o f sacral region M46.98 [facility] [address] [facility] [id number] [address] [place] [address] Nov, [facility] [address] [facility] [id number] [address] [place] [address] Nov, Labyrinthitis of left ear H8 3.02 [facility] [address] [facility] [id number] [address] [place] [address] Nov, Arthritis M19.90 [facility] [address] [facility] [id number] [address] [place] [address] Sep, Arthritis M19.90 [facility] [address] [facility] [id number] [address] [place] [address] Sep, Renal insufficiency N28.9 an d Unspecified kidney failure N19 [facility] [address] [id number] [address] [place] [address] Sep, Renal insufficiency N28.9 an d Unspecified kidney failure N19 [facility] [address] [id number] [address] [place] [address] Sep, Arthritis M19.90 [facility] [address] [id number] [address] [place] [address] Aug, Exercise counseling Z71.82 [facility] [address] [id number] [address] [place] [address] Aug, [facility] [address] [id number] [address] [place] [address] 27 Jul, 2018 Labyrinthitis of left ear H8 3.02 [facility] [address] [id number] [address] [place] [address] Jul, Labyrinthitis of left ear H8 3.02 [facility] [address] [id number] [address] [place] [address] Jul, Exercise counseling Z71.82 [facility] [address] [id number] [address] [place] [address] 18 Jul, 2018 [facility] [address] [id number] [address] [place] [address] 14 Jul, [address] [facility] [address] [id number] [address] [place] [address] 13 Jul, 2018 Encounter for Medicare annua l wellness exam Z00.00 ; Chronic kidney disease, stage 4 (severe) N18.4 ; Body mass index (BMI) of 40.0-44.9 in adult Z68.41 ; Hyperparathyroidism E21.3 and BMI 40.0-44.9, adult Z68.41 [facility] [address] [id number] [address] [place] [address] 13 Jul, 2018 Encounter for Medicare annua l wellness exam Z00.00 ; Chronic kidney disease, stage 4 (severe) N18.4 ; Hyperparathyroidism E21.3 ; Body mass index (BMI) of 40.0-44.9 in adult Z68.41 and Encounter for immunization Z23 [facility] [address] [id number] [address] [place] [address] 11 Jul, 2018 Tail bone pain M53.3 [place] [address] [id number] [address] [place] [address] Jun, Exercise counseling Z71.82 [place] [address] [id number] [address] [place] [address] Jun, Labyrinthitis of left ear H8 3.02 [place] [address] [id number] [address] [place] [address] Jun, Tail bone pain M53.3 ; Irrit able bowel syndrome with both constipation and diarrhea K58.2 and Dysfunction of left eustachian tube H69.82 [place] [address] [id number] [address] [place] [address] Jun, Exercise counseling Z71.82 [place] [address] [id number] [address] [place] [address] Jun, Arthritis M19.90 [place] [address] [id number] [address] [place] [address] 16 Jun, 2018 Irritable bowel syndrome wit h both constipation and diarrhea K58.2 ; Tail bone pain M53.3 and Dysfunction of left eustachian tube H69.82 [place] [address] [id number] [address] [place] [address] Jun, Exercise counseling Z71.82 [place] [address] [id number] [address] [place] [address] Jun, Exercise counseling Z71.82 [place] [address] [id number] [address] [place] [address] Jun, Labyrinthitis of left ear H8 3.02 [facility] [address] [id number] [address] [place] [address] May, Exercise counseling Z71.82 [facility] [address] [id number] [address] [place] [address] May, Arthritis M19.90 [facility] [address] [id number] [address] [place] [address] May, Exercise counseling Z71.82 [facility] [address] [id number] [address] [place] [address] May, Exercise counseling Z71.82 [facility] [address] [id number] [address] [place] [address] May, Labyrinthitis of left ear H8 3.02 [facility] [address] [id number] [address] [place] [address] May, Exercise counseling Z71.82 [facility] [address] [id number] [address] [place] [address] Apr, Arthritis M19.90 [facility] [address] [id number] [address] [place] [address] Apr, Exercise counseling Z71.82 [facility] [address] [id number] [address] [place] [id number] Apr, Exercise counseling Z71.82 [facility] [address] [id number] [address] [place] [address] Apr, Primary osteoarthritis of le ft knee M17.12 [facility] [address] [id number] [address] [place] [address] 08 Apr, 2018 Labyrinthitis of left ear H8 3.02 [facility] [address] [id number] [address] [place] [address] 30 Mar, [address] [facility] [address] [id number] [address] [place] [address] Mar, [facility] [address] [facility] [id number] [address] [place] [address] Mar, Chronic kidney disease, stag e 4 (severe) N18.4 [facility] [address] [facility] [id number] [address] [place] [address] Mar, Chronic kidney disease, stag e 4 (severe) N18.4 [facility] [address] [facility] [id number] [address] [place] [address] Mar, Labyrinthitis of left ear H8 3.02 [facility] [address] [place] [id number] [address] [place] [address] Mar, Chronic kidney disease, stag e 4 (severe) N18.4 ; Knee pain, left anterior M25.562 ; Deficiency of other specified B group vitamins E53.8 and Encounter for immunization Z23 [place] [address] [facility] [id number] [address] [place] [address] Mar, Arthritis M19.90 [place] [address] [facility] [id number] [address] [place] [address] Feb, Labyrinthitis of left ear H8 3.02 [place] [address] [place] [id number] [address] [place] [address] Feb, Arthritis M19.90 [facility] [address] [place] [id number] [address] [place] [address] Jan, Labyrinthitis of left ear H8 3.02 [facility] [address] [facility] [id number] [address] [place] [address] Jan, Arthritis M19.90 [facility] [address] [facility] [id number] [address] [place] [address] Dec, Labyrinthitis of left ear H8 3.02 [facility] [address] [facility] [id number] [address] [place] [address] Nov, Arthritis M19.90 [place] [address] [place] [id number] [address] [place] [address] Nov, Labyrinthitis of left ear H8 3.02 [place] [address] [place] [id number] [place] [address] Nov, BMI 40.0-44.9, adult Z68.41 ; Chronic kidney disease, stage 4 (severe) N18.4 and Acute right-sided thoracic back pain M54.6 [place] [address] [place] [id number] [place] [address] October, Labyrinthitis of left ear H8 3.02 and Arthritis M19.90 [place] [address] [address] Sep, BPV (benign positional verti go), bilateral H81.13 ; Dysfunction of left eustachian tube H69.82 and BMI 40.0-44.9, adult Z68.41 [place] [address] [address] Sep, Labyrinthitis of left ear H8 3.02 and Arthritis M19.90 [place] [address] [address] Sep, [place] [address] [place] [id number] [place] [address] Sep, [place] [address] [address] Sep, Chronic kidney disease, stag e 4 (severe) N18.4 [place] [address] [place] [id number] [place] [address] Sep, Chronic kidney disease, stag e 4 (severe) N18.4 [place] [address] [place] [id number] [address] [place] [address] Aug, Labyrinthitis of left ear H8 3.[address] [facility] [address] [id number] [address] [place] [address] Aug, [facility] [address] [id number] [address] [place] [address] Jul, [facility] [address] [id number] [address] [place] [address] Jul, Arthritis M19.90 and Labyrin thitis of left ear H83.02 [facility] [address] [id number] [address] [place] [address] Jul, [place] [address] [id number] [address] [place] [address] Jun, [place] [address] [facility] [id number] [address] [place] [address] Jun, Arthritis M19.90 and Labyrin thitis of left ear H83.02 [place] [address] [facility] [id number] [address] [place] [address] Jun, Pre-op evaluation Z01.818 ; BMI 40.0-44.9, adult Z68.41 and Encounter for immunization Z23 [place] [address] [facility] [id number] [address] [place] [address] May, Arthritis M19.90 and Labyrin thitis of left ear H83.02 [place] [address] [facility] [id number] [address] [place] [address] Apr, Labyrinthitis of left ear H8 3.02 [facility] [address] [facility] [id number] [address] [place] [address] Apr, Arthritis M19.90 and Labyrin thitis of left ear H83.02 [facility] [address] [facility] [id number] [address] [place] [address] 10 Mar, 2017 Arthritis M19.90 and Labyrin thitis of left ear H83.02 [place] [address] [facility] [id number] [address] [place] [address] Mar, Chronic kidney disease, stag e 4 (severe) N18.4 [facility] [address] [facility] [id number] [address] [place] [address] 06 Feb, 2017 Arthritis M19.90 and Labyrin thitis of left ear H83.02 [facility] [address] [facility] [id number] [address] [place] [address] Jan, Labyrinthitis of left ear H8 3.02 and Deficiency of other specified B group vitamins E53.8 [facility] [address] [facility] [id number] [address] [place] [address] Dec, Arthritis M19.90 [facility] [address] [facility] [id number] [address] [place] [address] Dec, BPV (benign positional verti go), bilateral H81.13 [facility] [address] [facility] [id number] [address] [place] [address] Dec, [facility] [address] [facility] [id number] [address] [place] [address] Dec, [facility] [address] [facility] [id number] [address] [place] [address] Dec, [facility] [address] [facility] [id number] [address] [place] [address] Nov, Arthritis M19.90 and Deficie ncy of other specified B group vitamins E53.8 [facility] [address] [facility] [id number] [address] [place] [address] Nov, Arthritis M19.90 [facility] [address] [facility] [id number] [address] [place] [address] Nov, Hyperparathyroidism E21.3 [facility] [address] [facility] [id number] [address] [place] [address] October, [facility] [address] [facility] [id number] [address] [place] [address] October, Hyperparathyroidism E21.3 [facility] [address] [facility] [id number] [address] [place] [address] October, [facility] [address] [facility] [id number] [address] [place] [address] October, Renal insufficiency N28.9 an d Hyperparathyroidism E21.3 [facility] [address] [place] [id number] [address] [place] [address] October, [facility] [address] [place] [id number] [address] [place] [address] October, Renal insufficiency N28.9 an d Hyperparathyroidism E21.3 [facility] [address] [place] [id number] [place] [address] October, Arthritis M19.90 [facility] [address] [address] Sep, [facility] [address] [address] Sep, Lumbar neuritis M54.16 ; Tho racic abscess J86.9 and Deficiency of other specified B group vitamins E53.8 [facility] [address] [place] [id number] [address] [place] [address] Sep, [facility] [address] [place] [id number] [address] [place] [address] Aug, Arthritis M19.90 [facility] [address] [place] [id number] [address] [place] [address] Aug, Hyperparathyroidism E21.3 [facility] [address] [place] [id number] [address] [place] [address] Aug, Hyperparathyroidism E21.3 [facility] [address] [place] [id number] [address] [place] [address] Aug, Arthritis M19.90 [facility] [address] [place] [id number] [address] [place] [address] Jul, Mass of throat R22.1 [facility] [address] [facility] [id number] [address] [place] [address] Jul, [facility] [address] [facility] [id number] [address] [place] [address] 10 Jul, [address] [facility] [address] [facility] [id number] [address] [place] [address] Jun, Arthritis M19.90 [facility] [address] [facility] [id number] [address] [place] [address] Jun, [facility] [address] [address] Jun, Renal insufficiency N28.9 an d Parathyroid abnormality E21.5 [facility] [address] [place] [id number] [address] [place] [address] 05 Jun, 2016 Medicare welcome exam Z00.00 ; Encounter for immunization Z23 ; Arthritis M19.90 ; Medicare annual wellness visit, initial Z00.00 ; Medicare annual wellness visit, subsequent Z00.00 and Deficiency of other specified B group vitamins E53.8 [facility] [address] [facility] [id number] [address] [place] [id number] May, Renal insufficiency N28.9 an d Parathyroid abnormality E21.5 [facility] [address] [facility] [id number] [address] [place] [id number] May, Renal insufficiency N28.9 [facility] [address] [facility] [id number] [address] [place] [id number] May, Renal insufficiency N28.9 [facility] [address] [place] [id number] [address] [place] [id number] May, [facility] [address] [place] [id number] [address] [place] [id number] Apr, [facility] [address] [place] [id number] [address] [place] [id number] Apr, [facility] [address] [id number] [address] [place] [id number] 14 Apr, 2016 Mass of throat R22.1 [facility] [address] [id number] [address] [place] [id number] 10 Apr, 2016 [facility] [address] [id number] [address] [place] [id number] Apr, Mass of throat R22.1 [facility] [address] [id number] [address] [place] [id number] 04 Apr, 2016 Mass of throat [address]22[address]1 [facility] [address] [id number] [address] [place] [id number] Mar, [facility] [address] [facility] [id number] [address] [place] [phone] Mar, [facility] [address] [facility] [id number] [address] [place] [id number] Mar, [facility] [address] [facility] [id number] [address] [place] [id number] Mar, Parathyroid abnormality E21. 5 and Encounter for immunization Z23 [facility] [address] [facility] [id number] [address] [place] [id number] Mar, [facility] [address] [facility] [id number] [address] [place] [id number] Mar, [facility] [address] [facility] [id number] [address] [place] [id number] 21 Feb, 2016 Renal insufficiency N28.9 an d Hyperparathyroidism E21.3 [facility] [address] [facility] [id number] [address] [place] [id number] [address], [address] [facility] [address] [facility] [id number] [address] [place] [address] [id number] 15 Feb, 2016 Renal insufficiency N28.9 an d Hyperparathyroidism E21.3 [facility] [address] [facility] [id number] [address] [place] [address] [address], [address] [facility] [address] [id number] [address] [place] [address] Feb, [facility] [address] [facility] [id number] [address] [place] [address] [address], [address] [facility] [address] [facility] [id number] [address] [place] [address] Jan, [facility] [address] [facility] [id number] [address] [place] [address] Jan, Arthritis M19.90 ; Lumbago w ith sciatica, right side M54.41 and Other chronic pain G89.29 [facility] [address] [facility] [id number] [address] [place] [address] Jan, [facility] [address] [facility] [id number] [address] [place] [address] Dec, Arthritis M19.90 ; Lumbago w ith sciatica, right side M54.41 and Other chronic pain G89.29 [facility] [address] [facility] [id number] [address] [place] [address] Nov, Deficiency of other specifie d B group vitamins E53.8 ; Primary insomnia F51.01 ; Mood disorder F39 and Lumbago with sciatica, right side M54.41 [facility] [address] [facility] [id number] [address] [place] [address] Nov, Hyperparathyroidism E21.3 [facility] [address] [facility] [id number] [address] [place] [address] Nov, Unspecified kidney failure N [address] [facility] [address] [facility] [id number] [address] [place] [address] October, Hyperparathyroidism E21.3 [facility] [address] [facility] [id number] [address] [place] [address] October, [facility] [address] [facility] [id number] [address] [place] [address] October, Hyperparathyroidism E21.3 [facility] [address] [address] October, Hyperparathyroidism E21.3 [facility] [address] [address] Sep, Hyperparathyroidism E21.3 ; Hypercholesterolemia E78.[address] [facility] [address] [address] Aug, [facility] [address] [address] Aug, Deficiency of other specifie d B group vitamins E53.8 [facility] [address] [address] Aug, [facility] [address] [address] Jul, Urinary frequency R35.0 [facility] [address] [address] Jul, Urinary frequency R35.0 [facility] [address] [address] Jul, [facility] [address] [address] Jul, [facility] [address] [address] Jun, Pain in left knee M25.562 [place] [address] [address] Jun, [facility] [address] [address] May, Swelling of left knee joint M25.462 [place] [address] [address] May, [facility] [address] [facility] [id number] [address] [place] [address] May, [facility] [address] [facility] [id number] [address] [place] [address] May, [facility] [address] [facility] [id number] [address] [place] [address] Apr, Renal insufficiency N28.9 an d Chronic kidney disease, stage 4 (severe) N18.4 [facility] [address] [facility] [id number] [address] [place] [address] Apr, Unspecified kidney failure N 19 [facility] [address] [facility] [id number] [place] [address] Apr, Unspecified kidney failure N 19 [facility] [address] [place] [id number] [place] [address] Apr, [facility] [address] [place] [id number] [address] [place] [address] Apr, Hyperparathyroidism, unspeci fied 252.00 [facility] [address] [place] [id number] [address] [place] [address] Apr, [facility] [address] [facility] [id number] [address] [place] [address] Mar, [facility] [address] [place] [id number] [address] [place] [address] Mar, [facility] [address] [facility] [id number] [address] [place] [address] Mar, Hyperparathyroidism, unspeci fied 252.00 [facility] [address] [place] [id number] [address] [place] [address] Feb, [facility] [address] [facility] [id number] [address] [place] [address] Feb, Otalgia 388.70 [facility] [address] [place] [id number] [address] [place] [address] Feb, [facility] [address] [id number] [address] [place] [address] Feb, [facility] [address] [id number] [address] [place] [address] Jan, [facility] [address] [id number] [address] [place] [address] Jan, Hyperparathyroidism, unspeci fied 252.00 [facility] [address] [id number] [address] [place] [address] Jan, [facility] [address] [id number] [address] [place] [address] Jan, Other B-complex deficiencies 266.2 and Hyperparathyroidism, unspecified 252.00 [facility] [address] [id number] [address] [place] [address] Jan, [facility] [address] [id number] [address] [place] [address] Jan, [facility] [address] [id number] [address] [place] [address] Jan, [facility] [address] [id number] [address] [place] [address] Dec, [facility] [address] [id number] [address] [place] [address] Dec, [facility] [address] [id number] [address] [place] [address] Dec, [facility] [address] [id number] [address] [place] [address] Nov, Routine check-up V70.0 and P re-op exam V72.84 [facility] [address] [id number] [address] [place] [address] Nov, [facility] [address] [id number] [address] [place] [address] Nov, [facility] [address] [id number] [address] [place] [address], [place] [address] October, [facility] [address] [id number] [address] [place] [address], [place] [address] October, Other B-complex deficiencies 266.2 [facility] [address] [id number] [address] [place] [address], [place] [address] October, [facility] [address] [id number] [address] [place] [address], [place] [address] Sep, [facility] [address] [id number] [address] [place] [address], [place] [address] Sep, [facility] [address] [id number] [address] [place] [address] Aug, [facility] [address] [id number] [address] [place] [address], [place] [address] Aug, [facility] [address] [id number] [address] [place] [address] Aug, [facility] [address] [id number] [address] [place] [address], [place] [address] Aug, [facility] [address] [id number] [address] [place] [address] Aug, [facility] [address] [id number] [address] [place] [address] Aug, [facility] [address] [id number] [address] [place] [address] Jul, [facility] [address] [id number] [address] [place] [address], [place] [address] Jul, [facility] [address] [id number] [address] [place] [address] Jul, [facility] [address] [id number] [address] [place] [address] Jul, [facility] [address] [id number] [address] [place] [address], [place] [address] Jul, 2014 [facility] [address] [id number] [address] [place] [address], [place] [address] Jul, 2014 [facility] [address] [id number] [address] [place] [address], [place] [address] Jul, 2014 [facility] [address] [id number] [address] [place] [address], [place] [address] Jul, 2014 [facility] [address] [id number] [address] [place] [address], [place] [address] Jul, 2014 [facility] [address] [id number] [address] [place] [address], [place] [address] Jul, 2014 [facility] [address] [id number] [address] [place] [address], [place] [address] Jul, 2014 [facility] [address] [id number] [address] [place] [address], [place] [address] Jul, 2014 [facility] [address] [id number] [address] [place] [address], [place] [address] Jul, [facility] [address] [id number] [address] [place] [address], [place] [address] Jul, [facility] [address] [id number] [address] [place] [address], [place] [address] Jun, [facility] [address] [id number] [address] [place] [address] Jun, [facility] [address] [id number] [address] [place] [address], [place] [address] Jun, [facility] [address] [id number] [address] [place] [address], [place] [address] Jun, [facility] [address] [id number] [address] [place] [address] Jun, [facility] [address] [id number] [address] [place] [address] Jun, [facility] [address] [id number] [address] [place] [address], [place] [address] Jun, [facility] [address] [id number] [address] [place] [address], [place] [address] Jun, [facility] [address] [id number] [address] [place] [address], [place] [address] Jun, [facility] [address] [id number] [address] [place] [address], [place] [address] Jun, [facility] [address] [id number] [address] [place] [address], [place] [address] Jun, [facility] [address] [id number] [address] [place] [address], [place] [address] Jun, [facility] [address] [id number] [address] [place] [address], [place] [address] Jun, [facility] [address] [id number] [address] [place] [address], [place] [address] Jun, [facility] [address] [id number] [address] [place] [address], [place] [address] May, [facility] [address] [id number] [address] [place] [address], [place] [address] May, [facility] [address] [id number] [address] [place] [address], [place] [address] May, [facility] [address] [id number] [address] [place] [address], [place] [address] May, [facility] [address] [id number] [address] [place] [address], [place] [address] Apr, [facility] [address] [id number] [address] [place] [address], [place] [address] Apr, [facility] [address] [id number] [address] [place] [address], [place] [address] Apr, [facility] [address] [id number] [address] [place] [address], [place] [address] Apr, [facility] [address] [id number] [address] [place] [address], [place] [address] Apr, [facility] [address] [id number] [address] [place] [address], [place] [address] Apr, [facility] [address] [id number] [address] [place] [address], [place] [address] Mar, [facility] [address] [id number] [address] [place] [address], [place] [address] Mar, [facility] [address] [id number] [address] [place] [address], [place] [address] Mar, [facility] [address] [id number] [address] [place] [address], [place] [address] Mar, [facility] [address] [id number] [address] [place] [address], [place] [address] Mar, [facility] [address] [id number] [address] [place] [address], [place] [address] Mar, [facility] [address] [id number] [address] [place] [address], [place] [address] Mar, [facility] [address] [id number] [address] [place] [address], [place] [address] Mar, [facility] [address] [id number] [address] [place] [address], [place] [address] Mar, [facility] [address] [id number] [address] [place] [address], [place] [address] Mar, [facility] [address] [id number] [address] [place] [address], [place] [address] Mar, [facility] [address] [id number] [address] [place] [address], [place] [address] Mar, [facility] [address] [id number] [address] [place] [address], [place] [address] Mar, [facility] [address] [id number] [facility] [place] [address] Feb, [facility] [address] [id number] [address] [place] [address], [place] [address] Feb, [facility] [address] [id number] [address] [place] [address], [place] [address] Feb, [facility] [address] [id number] [address] [place] [address], [place] [address] Feb, [facility] [address] [id number] [address] [place] [address], [place] [address] Feb, [facility] [address] [id number] [address] [place] [address], [place] [address] Feb, [facility] [address] [id number] [address] [place] [address], [place] [address] Feb, [facility] [address] [id number] [address] [place] [address], [place] [address] Feb, [facility] [address] [id number] [address] [place] [address], [place] [address] Feb, [facility] [address] [id number] [address] [place] [address], [place] [address] Feb, [facility] [address] [id number] [address] [place] [address], [place] [address] Jan, [facility] [address] [id number] [address] [place] [address], [place] [address] Jan, [facility] [address] [id number] [address] [place] [address], [place] [address] Dec, [facility] [address] [id number] [address] [place] [address], [place] [address] Dec, [facility] [address] [id number] [address] [place] [address], [place] [address] Dec, [facility] [address] [id number] [address] [place] [address], [place] [address] Dec, [facility] [address] [id number] [facility] [place] [address] Dec, [facility] [address] [id number] [facility] [place] [address] Dec, [facility] [address] [id number] [address] [place] [address], [place] [address] Nov, [facility] [address] [id number] [address] [place] [address], [place] [address] Nov, [facility] [address] [id number] [address] [place] [address], [place] [address] Nov, [facility] [address] [id number] [address] [place] [address], [place] [address] Nov, [facility] [address] [id number] [address] [place] [address], [place] [address] October, [facility] [address] [id number] [address] [place] [address], [place] [address] October, [facility] [address] [id number] [address] [place] [address], [place] [address] October, [facility] [address] [id number] [address] [place] [address], [place] [address] October, [facility] [address] [id number] [address] [place] [address], [place] [address] October, [facility] [address] [id number] [address] [place] [address], [place] [address] October, [facility] [address] [id number] [address] [place] [address], [place] [address] October, [facility] [address] [id number] [address] [place] [address], [place] [address] October, [facility] [address] [id number] [address] [place] [address], [place] [address] October, [facility] [address] [id number] [address] [place] [address], [place] [address] October, [facility] [address] [id number] [address] [place] [address], [place] [address] October, [facility] [address] [id number] [address] [place] [address], [place] [address] October, [facility] [address] [id number] [address] [place] [address], [place] [address] October, [facility] [address] [id number] [address] [place] [address], [place] [address] October, [facility] [address] [id number] [address] [place] [address], [place] [address] October, [facility] [address] [id number] [address] [place] [address], [place] [address] October, [facility] [address] [id number] [address] [place] [address], [place] [address] Sep, [facility] [address] [id number] [address] [place] [address], [place] [address] Sep, [facility] [address] [id number] [address] [place] [address], [place] [address] Sep, [facility] [address] [id number] [address] [place] [address], [place] [address] Sep, [facility] [address] [id number] [address] [place] [address], [place] [address] Sep, [facility] [address] [id number] [address] [place] [address], [place] [address] Sep, [facility] [address] [id number] [address] [place] [address], [place] [address] Aug, [facility] [address] [id number] [address] [place] [address], [place] [address] Aug, [facility] [address] [id number] [address] [place] [address], [place] [address] Aug, [facility] [address] [id number] [address] [place] [address], [place] [address] Aug, [facility] [address] [id number] [address] [place] [address], [place] [address] Aug, [facility] [address] [id number] [address] [place] [address], [place] [address] Aug, [facility] [address] [id number] [address] [place] [address], [place] [address] Jul, [facility] [address] [id number] [address] [place] [address], [place] [address] Jul, [facility] [address] [id number] [address] [place] [address], [place] [address] Jul, [facility] [address] [id number] [address] [place] [address], [place] [address] Jul, [facility] [address] [id number] [address] [place] [address], [place] [address] Jun, [facility] [address] [id number] [address] [place] [address], [place] [address] Jun, [facility] [address] [id number] [address] [place] [address], [place] [address] May, [facility] [address] [id number] [address] [place] [address], [place] [address] May, [facility] [address] [id number] [address] [place] [address], [place] [address] May, [facility] [address] [id number] [address] [place] [address], [place] [address] May, [facility] [address] [id number] [address] [place] [address], [place] [address] May, [facility] [address] [id number] [address] [place] [address], [place] [address] Apr, [facility] [address] [id number] [address] [place] [address], [place] [address] 13 Apr, 2013 [facility] [address] [id number] [address] [place] [address], [place] [address] Apr, [facility] [address] [id number] [address] [place] [address], [place] [address] Apr, [facility] [address] [id number] [address] [place] [address], [place] [address] Apr, [facility] [address] [id number] [address] [place] [address], [place] [address] 04 Apr, 2013 [facility] [address] [id number] [address] [place] [address], [place] [address] 15 Mar, 2013 [facility] [address] [id number] [address] [place] [address], [place] [address] 15 Mar, 2013 [facility] [address] [id number] [address] [place] [address], [place] [address] 14 Mar, 2013 [facility] [address] [id number] [address] [place] [address], [place] [address] 14 Mar, 2013 [facility] [address] [id number] [address] [place] [address], [place] [address] Mar, [facility] [address] [id number] [address] [place] [address], [place] [address] Mar, [facility] [address] [id number] [address] [place] [address], [place] [address] 23 Feb, 2013 [facility] [address] [id number] [address] [place] [address], [place] [address] 19 Feb, 2013 [facility] [address] [id number] [address] [place] [address], [place] [address] 04 Feb, 2013 [facility] [address] [id number] [address] [place] [address], [place] [address] Jan, [facility] [address] [id number] [address] [place] [address], [place] [address] Jan, [facility] [address] [id number] [address] [place] [address], [place] [address] Jan, [facility] [address] [id number] [address] [place] [address], [place] [address] Jan, [facility] [address] [id number] [address] [place] [address], [place] [address] Jan, [facility] [address] [id number] [address] [place] [address], [place] [address] Jan, [facility] [address] [id number] [address] [place] [address], [place] [address] Dec, [facility] [address] [id number] [address] [place] [address], [place] [address] Dec, [facility] [address] [id number] [address] [place] [address], [place] [address] Dec, [facility] [address] [id number] [address] [place] [address], [place] [address] Dec, [facility] [address] [id number] [address] [place] [address], [place] [address] Dec, [facility] [address] [id number] [address] [place] [address], [place] [address] Dec, [facility] [address] [id number] [address] [place] [address], [place] [address] Nov, [facility] [address] [id number] [address] [place] [address], [place] [address] Nov, [facility] [address] [id number] [address] [place] [address], [place] [address] Nov, [facility] [address] [id number] [address] [place] [address], [place] [address] Nov, [facility] [address] [id number] [address] [place] [address], [place] [address] Nov, [facility] [address] [id number] [address] [place] [address], [place] [address] Nov, [facility] [address] [id number] [address] [place] [address], [place] [address] October, [facility] [address] [id number] [address] [place] [address], [place] [address] October, [facility] [address] [id number] [address] [place] [address], [place] [address] October, [facility] [address] [id number] [address] [place] [address], [place] [address] October, [facility] [address] [id number] [address] [place] [address], [place] [address] October, [facility] [address] [id number] [address] [place] [address], [place] [address] Sep, [facility] [address] [id number] [address] [place] [address], [place] [address] Sep, [facility] [address] [id number] [address] [place] [address], [place] [address] Sep, [facility] [address] [id number] [address] [place] [address], [place] [address] Sep, [facility] [address] [id number] [address] [place] [address], [place] [address] Sep, [facility] [address] [id number] [address] [place] [address], [place] [address] Aug, [facility] [address] [id number] [address] [place] [address], [place] [address] Aug, [facility] [address] [id number] [address] [place] [address], [place] [address] Aug, [facility] [address] [id number] [address] [place] [address], [place] [address] Jul, [facility] [address] [id number] [address] [place] [address], [place] [address] Jul, [facility] [address] [id number] [address] [place] [address], [place] [address] Jul, 2012 [facility] [address] [id number] [address] [place] [address], [place] [address] 08 Jul, 2012 [facility] [address] [id number] [address] [place] [address], [place] [address] 06 Jul, 2012 [facility] [address] [id number] [address] [place] [address], [place] [address] 05 Jul, 2012 [facility] [address] [id number] [address] [place] [address], [place] [address] Jun, [facility] [address] [id number] [address] [place] [address], [place] [address] Apr, [facility] [address] [id number] [address] [place] [address], [place] [address] Apr, [facility] [address] [id number] [address] [place] [address] Apr, [facility] [address] [id number] [address] [place] [address], [place] [address] Apr, [facility] [address] [id number] [address] [place] [address] Mar, [facility] [address] [id number] [address] [place] [address] Mar, [facility] [address] [id number] [address] [place] [address] Mar, [facility] [address] [id number] [address] [place] [address] Mar, [facility] [address] [id number] [address] [place] [address] Mar, [facility] [address] [id number] [address] [place] [id number] 04 Feb, 2012 [facility] [address] [id number] [address] [place] [address] Jan, [facility] [address] [id number] [address] [place] [address] Jan, [facility] [address] [id number] [address] [place] [address] Jan, [facility] [address] [id number] [address] [place] [address] Dec, [facility] [address] [id number] [address] [place] [address] Nov, [facility] [address] [id number] [address] [place] [address] Nov, [facility] [address] [id number] [address] [place] [address] Nov, [facility] [address] [id number] [address] [place] [address] Nov, [facility] [address] [id number] [address] [place] [address] Nov, [facility] [address] [id number] [address] [place] [address] October, [facility] [address] [id number] [address] [place] [address] October, [facility] [address] [id number] [address] [place] [id number] October, [facility] [address] [id number] [address] [place] [address] October, [facility] [address] [id number] [address] [place] [address] October, IMMUNIZATIONS No Known Immunizations SOCIAL HISTORY [...]
--- OUTSIDE RECORDS SUMMARY | 2020-01-25 08:18 | XMS REPORT ---
Author Author Velma Javed Doctor Organization [facility] Address Unknown Phone Unavailable Care Team Providers Care Manager Game Name Role Phone Migration, Doctor Unavailable Unavailable PROBLEMS Type Condition ICD9-CM Code QPN75-DT Code Onset Dates Condition S tatus SNOMED Code Problem Corns L84 Active 106495935 Problem Primary insomnia F51.01 Active 397 2004 Problem Hyperparathyroidism E21.3 Active 01724149 Problem Hypercholesteremia E78.0 Active 1 0409420 Problem Mood disorder F39 Active 498853 05 Problem Arthritis M19.90 Active 0796925 Problem 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 Active 81400617 Problem Myalgia M79.1 Active 55848916 Problem Chronic kidney disease, stage 4 (severe) N18.4 Active 473086711 Problem Primary osteoarthritis of left knee M17.12 Active [id number] Problem Irritable bowel syndrome with both constipation and diarrh ea K58.2 Active 94973857 Problem Other chronic pain G89.29 Active 8 9088279 Problem BPV (benign positional vertigo), bilateral H81.13 Active 376083578 Problem Hyperparathyroidism, unspecified E21.3 Active 45928359 Problem 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 [address] [facility] [id number] [address] [place] [phone] October, Hyperparathyroidism, unspeci fied E21.3 [facility] [address] [facility] [id number] [address] [place] [phone] October, Hyperparathyroidism, unspeci fied E21.3 [place] [address] [id number] [address] [place] [phone] Sep, Hyperparathyroidism, unspeci fied E21.3 [place] [address] [facility] [id number] [address] [place] [phone] 24 Aug, 2019 Hyperparathyroidism, unspeci fied E21.3 [place] [address] [facility] [id number] [address] [place] [phone] 05 Aug, 2019 Pain in left knee M25.562 ; Other chronic pain G89.29 ; Unspecified inflammatory spondylopathy, sacral and sacrococcygeal region M46.98 ; Chronic kidney disease, stage 4 (severe) N18.4 and Hyperparathyroidism, unspecified E21.3 [place] [address] [facility] [id number] [address] [place] [id number] 13 Jul, 2019 [place] [address] [facility] [id number] [address] [place] [id number] Jul, Arthritis M19.90 [place] [address] [facility] [id number] [address] [place] [phone] Jun, Knee pain, left M25.562 [place] [address] [address] [facility] [id number] [address] [place] [phone] May, Arthritis M19.90 [place] [address] [facility] [id number] [address] [place] [phone] Apr, Well woman exam without gyne cological exam Z00.00 and Screening for breast cancer Z12.39 [place] [address] [facility] [id number] [address] [place] [address] Mar, Arthritis M19.90 [place] [address] [facility] [id number] [address] [place] [phone] Mar, Arthritis M19.90 [place] [address] [facility] [id number] [address] [place] [phone] Mar, [place] [address] [facility] [id number] [address] [place] [phone] Mar, Arthritis M19.90 and Encount er for immunization Z23 [facility] [address] [facility] [id number] [address] [place] [phone] Feb, Arthritis M19.90 [facility] [address] [facility] [id number] [address] [place] [phone] Feb, [facility] [address] [place] [id number] [address] [place] [phone] Feb, Other specified disorders of bone density and structure, unspecified site M85.80 [facility] [address] [facility] [id number] [address] [place] [phone] Jan, Arthritis M19.90 [facility] [address] [facility] [id number] [address] [place] [phone] Dec, Arthritis M19.90 [facility] [address] [facility] [id number] [address] [place] [phone] Nov, Inflammatory spondylopathy o f sacral region M46.98 [facility] [address] [facility] [id number] [address] [place] [phone] Nov, [facility] [address] [facility] [id number] [address] [place] [phone] Nov, Labyrinthitis of left ear H8 3.02 [facility] [address] [facility] [id number] [address] [place] [phone] Nov, Arthritis M19.90 [facility] [address] [facility] [id number] [address] [place] [phone] 15 Sep, [address] [facility] [address] [facility] [id number] [address] [place] [phone] Sep, Renal insufficiency N28.9 an d Unspecified kidney failure N19 [facility] [address] [facility] [id number] [address] [place] [address] Sep, Renal insufficiency N28.9 an d Unspecified kidney failure N19 [facility] [address] [id number] [address] [place] [address] Sep, Arthritis M19.90 [facility] [address] [id number] [address] [place] [phone] Aug, Exercise counseling Z71.82 [facility] [address] [id number] [address] [place] [phone] Aug, [facility] [address] [id number] [address] [place] [phone] 27 Jul, 2018 Labyrinthitis of left ear H8 3.02 [place] [address] [facility] [id number] [address] [place] [phone] 22 Jul, 2018 Labyrinthitis of left ear H8 3.02 [facility] [address] [id number] [address] [place] [phone] 19 Jul, 2018 Exercise counseling Z71.82 [place] [address] [id number] [address] [place] [phone] 18 Jul, 2018 [place] [address] [id number] [address] [place] [id number] 14 Jul, 2018 Arthritis M19.90 [place] [address] [facility] [id number] [address] [place] [id number] 13 Jul, 2018 Encounter for Medicare annua l wellness exam Z00.00 ; Chronic kidney disease, stage 4 (severe) N18.4 ; Body mass index (BMI) of 40.0-44.9 in adult Z68.41 ; Hyperparathyroidism E21.3 and BMI 40.0-44.9, adult Z68.41 [place] [address] [facility] [id number] [address] [place] [phone] 13 Jul, 2018 Encounter for Medicare annua l wellness exam Z00.00 ; Chronic kidney disease, stage 4 (severe) N18.4 ; Hyperparathyroidism E21.3 ; Body mass index (BMI) of 40.0-44.9 in adult Z68.41 and Encounter for immunization Z23 [facility] [address] [id number] [address] [place] [phone] Jul, Tail bone pain M53.3 [facility] [address] [id number] [address] [place] [phone] Jun, Exercise counseling Z71.82 [facility] [address] [id number] [address] [place] [phone] Jun, Labyrinthitis of left ear H8 3.02 [facility] [address] [id number] [address] [place] [phone] Jun, Tail bone pain M53.3 ; Irrit able bowel syndrome with both constipation and diarrhea K58.2 and Dysfunction of left eustachian tube H69.82 [place] [address] [id number] [address] [place] [address] Jun, Exercise counseling Z71.82 [place] [address] [id number] [address] [place] [address] Jun, Arthritis M19.90 [facility] [address] [id number] [address] [place] [phone] Jun, Irritable bowel syndrome wit h both constipation and diarrhea K58.2 ; Tail bone pain M53.3 and Dysfunction of left eustachian tube H69.82 [place] [address] [id number] [address] [place] [phone] Jun, Exercise counseling Z71.82 [facility] [address] [id number] [address] [place] [phone] Jun, Exercise counseling Z71.82 [place] [address] [id number] [address] [place] [phone] Jun, Labyrinthitis of left ear H8 3.02 [facility] [address] [id number] [address] [place] [address] May, Exercise counseling Z71.82 [place] [address] [id number] [address] [place] [address] May, Arthritis M19.90 [facility] [address] [id number] [address] [place] [phone] May, Exercise counseling Z71.82 [facility] [address] [id number] [address] [place] [phone] May, Exercise counseling Z71.82 [facility] [address] [id number] [address] [place] [address] May, Labyrinthitis of left ear H8 3.02 [facility] [address] [id number] [address] [place] [phone] May, Exercise counseling Z71.82 [facility] [address] [id number] [address] [place] [phone] Apr, Arthritis M19.90 [facility] [address] [id number] [address] [place] [phone] Apr, Exercise counseling Z71.82 [facility] [address] [id number] [address] [place] [phone] Apr, Exercise counseling Z71.82 [facility] [address] [id number] [address] [place] [phone] 08 Apr, 2018 Primary osteoarthritis of le ft knee M17.12 [facility] [address] [id number] [address] [place] [phone] Apr, Labyrinthitis of left ear H8 3.02 [facility] [address] [id number] [address] [place] [address] Mar, Arthritis M19.90 [facility] [address] [id number] [address] [place] [phone] Mar, [facility] [address] [facility] [id number] [address] [place] [phone] Mar, Chronic kidney disease, stag e 4 (severe) N18.4 [facility] [address] [facility] [id number] [address] [place] [phone] Mar, Chronic kidney disease, stag e 4 (severe) N18.4 [facility] [address] [facility] [id number] [address] [place] [phone] Mar, Labyrinthitis of left ear H8 3.02 [facility] [address] [place] [id number] [address] [place] [phone] Mar, Chronic kidney disease, stag e 4 (severe) N18.4 ; Knee pain, left anterior M25.562 ; Deficiency of other specified B group vitamins E53.8 and Encounter for immunization Z23 [facility] [address] [facility] [id number] [address] [place] [phone] Mar, Arthritis M19.90 [facility] [address] [place] [id number] [address] [place] [phone] Feb, Labyrinthitis of left ear H8 3.02 [facility] [address] [place] [id number] [address] [place] [phone] Feb, Arthritis M19.90 [facility] [address] [place] [id number] [address] [place] [phone] Jan, Labyrinthitis of left ear H8 3.02 [facility] [address] [place] [id number] [address] [place] [phone] Jan, Arthritis M19.90 [facility] [address] [place] [id number] [address] [place] [phone] Dec, Labyrinthitis of left ear H8 3.02 [facility] [address] [place] [id number] [address] [place] [phone] Nov, Arthritis M19.90 [facility] [address] [place] [id number] [address] [place] [phone] Nov, Labyrinthitis of left ear H8 3.02 [facility] [address] [place] [id number] [address] [place] [phone] Nov, BMI 40.0-44.9, adult Z68.41 ; Chronic kidney disease, stage 4 (severe) N18.4 and Acute right-sided thoracic back pain M54.6 [place] [address] [place] [id number] [address] [place] [phone] October, Labyrinthitis of left ear H8 3.02 and Arthritis M19.90 [place] [address] [place] [id number] [place] [phone] Sep, BPV (benign positional verti go), bilateral H81.13 ; Dysfunction of left eustachian tube H69.82 and BMI 40.0-44.9, adult Z68.41 [place] [address] [place] [id number] [address] [place] [phone] Sep, Labyrinthitis of left ear H8 3.02 and Arthritis M19.90 [place] [address] [place] [id number] [address] [place] [phone] Sep, [place] [address] [place] [id number] [place] [phone] Sep, [place] [address] [place] [id number] [address] [place] [phone] Sep, Chronic kidney disease, stag e 4 (severe) N18.4 [place] [address] [facility] [id number] [address] [place] [address] Sep, Chronic kidney disease, stag e 4 (severe) N18.4 [place] [address] [facility] [id number] [address] [place] [address] Aug, Labyrinthitis of left ear H8 3.02 and Arthritis M19.90 [place] [address] [place] [id number] [address] [place] [address] Aug, [place] [address] [place] [id number] [address] [place] [address] Jul, [facility] [address] [facility] [id number] [address] [place] [phone] Jul, Arthritis M19.90 and Labyrin thitis of left ear H83.02 [facility] [address] [facility] [id number] [address] [place] [phone] Jul, [place] [address] [place] [id number] [place] [phone] Jun, [place] [address] [place] [id number] [place] [address] Jun, Arthritis M19.90 and Labyrin thitis of left ear H83.02 [place] [address] [place] [id number] [place] [address] Jun, Pre-op evaluation Z01.818 ; BMI 40.0-44.9, adult Z68.41 and Encounter for immunization Z23 [place] [address] [place] [id number] [address] [place] [address] May, Arthritis M19.90 and Labyrin thitis of left ear H83.02 [place] [address] [place] [id number] [address] [place] [address] Apr, Labyrinthitis of left ear H8 3.02 [place] [address] [place] [id number] [address] [place] [address] Apr, Arthritis M19.90 and Labyrin thitis of left ear H83.02 [place] [address] [place] [id number] [address] [place] [address] Mar, Arthritis M19.90 and Labyrin thitis of left ear H83.02 [place] [address] [place] [id number] [address] [place] [phone] 05 Mar, 2017 Chronic kidney disease, stag e 4 (severe) N18.4 [place] [address] [place] [id number] [address] [place] [address] Feb, Arthritis M19.90 and Labyrin thitis of left ear H83.02 [facility] [address] [facility] [id number] [address] [place] [phone] Jan, Labyrinthitis of left ear H8 3.02 and Deficiency of other specified B group vitamins E53.8 [facility] [address] [id number] [address] [place] [address] Dec, Arthritis M19.90 [facility] [address] [facility] [id number] [address] [place] [address] Dec, BPV (benign positional verti go), bilateral H81.13 [facility] [address] [facility] [id number] [address] [place] [phone] Dec, [facility] [address] [place] [id number] [address] [place] [phone] Dec, [facility] [address] [facility] [id number] [address] [place] [phone] Dec, [facility] [address] [facility] [id number] [address] [place] [address] Nov, Arthritis M19.90 and Deficie ncy of other specified B group vitamins E53.8 [facility] [address] [facility] [id number] [address] [place] [phone] Nov, Arthritis M19.90 [facility] [address] [id number] [address] [place] [phone] Nov, Hyperparathyroidism E21.3 [facility] [address] [facility] [id number] [address] [place] [phone] October, [facility] [address] [facility] [id number] [address] [place] [address] October, Hyperparathyroidism E21.3 [facility] [address] [facility] [id number] [address] [place] [phone] October, [facility] [address] [facility] [id number] [address] [place] [phone] October, Renal insufficiency N28.9 an d Hyperparathyroidism E21.3 [facility] [address] [facility] [id number] [address] [place] [address] October, [facility] [address] [facility] [id number] [address] [place] [phone] October, Renal insufficiency N28.9 an d Hyperparathyroidism E21.3 [facility] [address] [facility] [id number] [address] [place] [phone] October, Arthritis M19.90 [facility] [address] [facility] [id number] [address] [place] [phone] Sep, [facility] [address] [place] [id number] [address] [place] [address] Sep, Lumbar neuritis M54.16 ; Tho racic abscess J86.9 and Deficiency of other specified B group vitamins E53.8 [facility] [address] [facility] [id number] [address] [place] [phone] Sep, [facility] [address] [facility] [id number] [address] [place] [address] Aug, Arthritis M19.90 [facility] [address] [place] [id number] [address] [place] [phone] Aug, Hyperparathyroidism E21.3 [facility] [address] [facility] [id number] [address] [place] [phone] Aug, Hyperparathyroidism E21.3 [facility] [address] [place] [id number] [address] [place] [phone] Aug, Arthritis M19.90 [facility] [address] [place] [id number] [address] [place] [phone] Jul, Mass of throat R22.1 [facility] [address] [place] [id number] [address] [place] [phone] Jul, [facility] [address] [facility] [id number] [address] [place] [phone] 10 Jul, [address] [facility] [address] [facility] [id number] [address] [place] [address] Jun, Arthritis M19.90 [facility] [address] [place] [id number] [address] [place] [phone] Jun, [facility] [address] [facility] [id number] [address] [place] [phone] Jun, Renal insufficiency N28.9 an d Parathyroid abnormality E21.5 [facility] [address] [facility] [id number] [address] [place] [phone] 05 Jun, 2016 Medicare welcome exam Z00.00 ; Encounter for immunization Z23 ; Arthritis M19.90 ; Medicare annual wellness visit, initial Z00.00 ; Medicare annual wellness visit, subsequent Z00.00 and Deficiency of other specified B group vitamins E53.8 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 [id number] [place] [phone] 19 May, [address] [facility] [address] [place] [id number] [address] [place] [phone] 16 May, [address] [facility] [address] [facility] [id number] [address] [place] [phone] [address], [address] [facility] [address] [place] [id number] [address] [place] [phone] Apr, [facility] [id number] [place] [id number] Apr, [facility] [address] [place] [id number] [address] [place] [phone] 14 Apr, 2016 Mass of throat R22.1 [facility] [address] [place] [id number] [place] [phone] [address] [facility] [address] [id number] [address] [place] [phone] 10 Apr, 2016 Mass of throat R22.1 [facility] [address] [id number] [address] [place] [phone] 04 Apr, 2016 Mass of throat R22.1 [facility] [address] [id number] [address] [place] [phone] Mar, [facility] [address] [id number] [address] [place] [phone] Mar, [facility] [address] [id number] [address] [place] [phone] Mar, [facility] [address] [facility] [id number] [address] [place] [phone] 24 Mar, 2016 Parathyroid abnormality E21. 5 and Encounter for immunization Z23 [facility] [address] [id number] [address] [place] [phone] 17 Mar, 2016 [facility] [address] [id number] [address] [place] [phone] 11 Mar, 2016 [facility] [address] [facility] [id number] [address] [place] [phone] 21 Feb, 2016 Renal insufficiency N28.9 an d Hyperparathyroidism E21.3 [facility] [address] [id number] [address] [place] [phone] [address], [address] [facility] [address] [id number] [address] [place] [phone] 15 Feb, 2016 Renal insufficiency N28.9 an d Hyperparathyroidism E21.3 [facility] [address] [facility] [id number] [address] [place] [id number] [address], [address] [facility] [address] [id number] [address] [place] [phone] [address], [address] [facility] [address] [facility] [id number] [address] [place] [phone] Feb, [facility] [address] [facility] [id number] [address] [place] [phone] Jan, [facility] [address] [place] [id number] [address] [place] [id number] Jan, Arthritis M19.90 ; Lumbago w ith sciatica, right side M54.41 and Other chronic pain G89.29 [facility] [address] [place] [id number] [address] [place] [address] Jan, [place] [address] [address] Dec, Arthritis M19.90 ; Lumbago w ith sciatica, right side M54.41 and Other chronic pain G89.29 [place] [address] [address] Nov, Deficiency of other specifie d B group vitamins E53.8 ; Primary insomnia F51.01 ; Mood disorder F39 and Lumbago with sciatica, right side M54.41 [place] [address] [place] [id number] [place] [id number] Nov, Hyperparathyroidism E21.3 [place] [address] [place] [id number] [place] [phone] Nov, Unspecified kidney failure N 19 and Hyperparathyroidism E21.3 [place] [address] [place] [id number] [address] [place] [address] October, Hyperparathyroidism E21.3 [place] [address] [place] [id number] [address] [place] [address] October, [place] [address] [place] [id number] [place] [address] October, Hyperparathyroidism E21.3 [place] [address] [place] [id number] [place] [address] October, Hyperparathyroidism E21.3 [facility] [address] [place] [id number] [address] [place] [address] Sep, Hyperparathyroidism E21.3 ; Hypercholesterolemia E78.[address] [facility] [address] [place] [address] [id number] [address] [place] [address] Aug, [facility] [address] [address] Aug, Deficiency of other specifie d B group vitamins E53.8 [facility] [address] [address] Aug, [facility] [address] [address] Jul, Urinary frequency R35.0 [facility] [address] [address] Jul, Urinary frequency R35.0 [facility] [address] [address] Jul, [facility] [address] [address] Jul, [facility] [address] [address] Jun, Pain in left knee M25.562 [facility] [address] [place] [id number] [address] [place] [address] Jun, [facility] [id number] [place] [address] May, Swelling of left knee joint M25.462 [facility] [address] [place] [id number] [address] [place] [address] May, [facility] [address] [place] [id number] [address] [place] [phone] May, [facility] [address] [address] May, [facility] [address] [facility] [id number] [address] [place] [id number] Apr, Renal insufficiency N28.9 an d Chronic kidney disease, stage 4 (severe) N18.4 [facility] [address] [facility] [id number] [address] [place] [id number] Apr, Unspecified kidney failure N 19 [facility] [address] [id number] [address] [place] [address] Apr, Unspecified kidney failure N 19 [facility] [address] [facility] [id number] [address] [place] [address] Apr, [facility] [address] [facility] [id number] [address] [place] [address] Apr, Hyperparathyroidism, unspeci fied 252.00 [facility] [address] [facility] [id number] [address] [place] [address] Apr, [facility] [address] [id number] [address] [place] [phone] Mar, [facility] [address] [facility] [id number] [address] [place] [id number] Mar, [facility] [address] [facility] [id number] [address] [place] [id number] Mar, Hyperparathyroidism, unspeci fied 252.00 [facility] [address] [id number] [address] [place] [address] Feb, [facility] [address] [facility] [id number] [address] [place] [id number] Feb, Otalgia 388.70 [facility] [address] [facility] [id number] [address] [place] [address] Feb, [facility] [address] [facility] [id number] [address] [place] [id number] Feb, [facility] [address] [id number] [address] [place] [id number] Jan, [facility] [address] [id number] [address] [place] [address] Jan, Hyperparathyroidism, unspeci fied 252.00 [facility] [address] [id number] [address] [place] [address] Jan, [facility] [address] [id number] [address] [place] [address] Jan, Other B-complex deficiencies 266.2 and Hyperparathyroidism, unspecified 252.00 [facility] [address] [id number] [address] [place] [address] Jan, [facility] [address] [id number] [address] [place] [address] Jan, [facility] [address] [id number] [address] [place] [phone] Jan, [facility] [address] [id number] [address] [place] [id number] Dec, [facility] [address] [id number] [address] [place] [id number] Dec, [facility] [address] [id number] [address] [place] [address] Dec, [facility] [address] [id number] [address] [place] [address] Nov, Routine check-up V70.0 and P re-op exam V72.84 [facility] [address] [id number] [address] [place] [id number] Nov, [facility] [address] [id number] [address] [place] [id number] Nov, [facility] [address] [id number] [address] [place] [id number] October, [facility] [address] [id number] [address] [place] [address] October, Other B-complex deficiencies 266.2 [facility] [address] [id number] [address] [place] [address] October, [facility] [address] [id number] [address] [place] [id number] 14 Sep, 2014 [facility] [address] [id number] [address] [place] [id number] 13 Sep, 2014 [facility] [address] [id number] [address] [place] [id number] 20 Aug, 2014 [facility] [address] [id number] [address] [place] [id number] 20 Aug, 2014 [facility] [address] [id number] [address] [place] [id number] 17 Aug, 2014 [facility] [address] [id number] [address] [place] [id number] 17 Aug, 2014 [facility] [address] [id number] [address] [place] [phone] Aug, [facility] [address] [id number] [address] [place] [id number] Aug, [facility] [address] [id number] [address] [place] [id number] 18 Jul, 2014 [facility] [address] [id number] [address] [place] [id number] 18 Jul, 2014 [facility] [address] [id number] [address] [place] [id number] 17 Jul, 2014 [facility] [address] [id number] [address] [place] [phone] Jul, [facility] [address] [id number] [address] [place] [id number] 12 Jul, 2014 [facility] [address] [id number] [address] [place] [id number] Jul, [facility] [address] [id number] [address] [place] [address], [place] [address] Jul, 2014 [facility] [address] [id number] [address] [place] [address], [place] [address] Jul, 2014 [facility] [address] [id number] [address] [place] [address], [place] [address] Jul, 2014 [facility] [address] [id number] [address] [place] [address], [place] [address] Jul, 2014 [facility] [address] [id number] [address] [place] [address], [place] [address] Jul, 2014 [facility] [address] [id number] [address] [place] [address], [place] [address] Jul, 2014 [facility] [address] [id number] [address] [place] [address], [place] [address] Jul, 2014 [facility] [address] [id number] [address] [place] [address], [place] [address] Jul, [facility] [address] [id number] [address] [place] [address], [place] [address] Jun, [facility] [address] [id number] [address] [place] [address], [place] [address] Jun, [facility] [address] [id number] [address] [place] [address], [place] [address] Jun, [facility] [address] [id number] [address] [place] [address], [place] [address] Jun, [facility] [address] [id number] [address] [place] [address], [place] [address] Jun, [facility] [address] [id number] [address] [place] [address], [place] [address] Jun, [facility] [address] [id number] [address] [place] [address], [place] [address] Jun, [facility] [address] [id number] [address] [place] [address], [place] [address] Jun, [facility] [address] [id number] [address] [place] [address], [place] [address] Jun, [facility] [address] [id number] [address] [place] [address], [place] [address] Jun, [facility] [address] [id number] [address] [place] [address], [place] [address] Jun, [facility] [address] [id number] [address] [place] [address], [place] [address] Jun, [facility] [address] [id number] [address] [place] [address], [place] [address] Jun, [facility] [address] [id number] [address] [place] [address], [place] [address] Jun, [facility] [address] [id number] [address] [place] [address], [place] [address] May, [facility] [address] [id number] [address] [place] [address], [place] [address] May, [facility] [address] [id number] [address] [place] [address], [place] [address] May, [facility] [address] [id number] [address] [place] [address], [place] [address] May, [facility] [address] [id number] [address] [place] [address], [place] [address] Apr, [facility] [address] [id number] [address] [place] [address], [place] [address] Apr, [facility] [address] [id number] [address] [place] [address], [place] [address] Apr, [facility] [address] [id number] [address] [place] [address], [place] [address] Apr, [facility] [address] [id number] [address] [place] [address], [place] [address] Apr, [facility] [address] [id number] [address] [place] [address], [place] [address] Apr, [facility] [address] [id number] [address] [place] [address], [place] [address] Mar, [facility] [address] [id number] [address] [place] [address], [place] [address] Mar, [facility] [address] [id number] [address] [place] [address], [place] [address] Mar, [facility] [address] [id number] [address] [place] [address], [place] [address] Mar, [facility] [address] [id number] [address] [place] [address], [place] [address] Mar, [facility] [address] [id number] [address] [place] [address], [place] [address] Mar, [facility] [address] [id number] [address] [place] [id number] Mar, [facility] [address] [id number] [address] [place] [address], [place] [address] Mar, [facility] [address] [id number] [address] [place] [id number] Mar, [facility] [address] [id number] [address] [place] [id number] Mar, [facility] [address] [id number] [address] [place] [phone] Mar, [facility] [address] [id number] [address] [place] [address], [place] [address] Mar, [facility] [address] [id number] [address] [place] [address] Mar, [facility] [address] [id number] [address] [place] [phone] Feb, [facility] [address] [id number] [address] [place] [id number] 26 Feb, 2013 [facility] [address] [id number] [facility] [place] [address] 23 Feb, 2013 [facility] [address] [id number] [address] [place] [address], [place] [address] 23 Feb, 2014 [facility] [address] [id number] [address] [place] [address], [place] [address] 19 Feb, 2013 [facility] [address] [id number] [address] [place] [address], [place] [address] 19 Feb, 2013 [facility] [address] [id number] [address] [place] [address], [place] [address] 13 Feb, 2014 [facility] [address] [id number] [address] [place] [address], [place] [address] Feb, [facility] [address] [id number] [address] [place] [address], [place] [address] Feb, [facility] [address] [id number] [address] [place] [address], [place] [address] Feb, [facility] [address] [id number] [address] [place] [address], [place] [address] Jan, [facility] [address] [id number] [address] [place] [address], [place] [address] Jan, [facility] [address] [id number] [address] [place] [address], [place] [address] Dec, [facility] [address] [id number] [address] [place] [address], [place] [address] Dec, [facility] [address] [id number] [address] [place] [address], [place] [address] Dec, [facility] [address] [id number] [address] [place] [address], [place] [address] Dec, [facility] [address] [id number] [address] [place] [address], [place] [address] Dec, [facility] [address] [id number] [facility] [place] [address] Dec, [facility] [address] [id number] [facility] [place] [address] Nov, [facility] [address] [id number] [facility] [place] [address] Nov, [facility] [address] [id number] [facility] [place] [address] Nov, [facility] [address] [id number] [facility] [place] [address] Nov, [facility] [address] [id number] [address] [place] [address], [place] [address] October, [facility] [address] [id number] [address] [place] [address], [place] [address] October, [facility] [address] [id number] [address] [place] [address], [place] [address] October, [facility] [address] [id number] [address] [place] [address], [place] [address] October, [facility] [address] [id number] [address] [place] [address], [place] [address] October, [facility] [address] [id number] [address] [place] [address], [place] [address] October, [facility] [address] [id number] [address] [place] [address], [place] [address] October, [facility] [address] [id number] [address] [place] [address], [place] [address] October, [facility] [address] [id number] [address] [place] [address], [place] [address] October, [facility] [address] [id number] [address] [place] [address], [place] [address] October, [facility] [address] [id number] [address] [place] [address], [place] [address] October, [facility] [address] [id number] [facility] [place] [address] October, [facility] [address] [id number] [address] [place] [address], [place] [address] October, [facility] [address] [id number] [address] [place] [address], [place] [address] October, [facility] [address] [id number] [address] [place] [address], [place] [address] October, [facility] [address] [id number] [address] [place] [address], [place] [address] October, [facility] [address] [id number] [address] [place] [address], [place] [address] Sep, [facility] [address] [id number] [address] [place] [address], [place] [address] Sep, [facility] [address] [id number] [address] [place] [address], [place] [address] Sep, [facility] [address] [id number] [address] [place] [address], [place] [address] Sep, [facility] [address] [id number] [address] [place] [address], [place] [address] Sep, [facility] [address] [id number] [address] [place] [address], [place] [address] Sep, [facility] [address] [id number] [address] [place] [address], [place] [address] Aug, [facility] [address] [id number] [address] [place] [address], [place] [address] Aug, [facility] [address] [id number] [address] [place] [address], [place] [address] Aug, [facility] [address] [id number] [address] [place] [address], [place] [address] Aug, [facility] [address] [id number] [address] [place] [address], [place] [address] 05 Aug, 2013 [facility] [address] [id number] [address] [place] [address], [place] [address] Aug, [facility] [address] [id number] [address] [place] [address], [place] [address] Jul, [facility] [address] [id number] [address] [place] [address], [place] [address] Jul, [facility] [address] [id number] [address] [place] [address], [place] [address] Jul, [facility] [address] [id number] [address] [place] [address], [place] [address] Jul, [facility] [address] [id number] [address] [place] [address], [place] [address] Jun, [facility] [address] [id number] [address] [place] [address], [place] [address] Jun, [facility] [address] [id number] [address] [place] [address], [place] [address] May, [facility] [address] [id number] [address] [place] [address], [place] [address] May, [facility] [address] [id number] [address] [place] [address], [place] [address] May, [facility] [address] [id number] [address] [place] [address], [place] [address] May, [facility] [address] [id number] [address] [place] [address], [place] [address] May, [facility] [address] [id number] [address] [place] [address], [place] [address] 13 Apr, 2013 [facility] [address] [id number] [address] [place] [address], [place] [address] Apr, [facility] [address] [id number] [address] [place] [address], [place] [address] Apr, [facility] [address] [id number] [address] [place] [address], [place] [address] Apr, [facility] [address] [id number] [address] [place] [address], [place] [address] Apr, [facility] [address] [id number] [address] [place] [address], [place] [address] Apr, [facility] [address] [id number] [address] [place] [address], [place] [address] 15 Mar, 2013 [facility] [address] [id number] [address] [place] [address], [place] [address] 15 Mar, 2013 [facility] [address] [id number] [address] [place] [address], [place] [address] 14 Mar, 2013 [facility] [address] [id number] [address] [place] [address], [place] [address] 14 Mar, 2013 [facility] [address] [id number] [address] [place] [id number] Mar, [facility] [address] [id number] [address] [place] [address], [place] [address] Mar, [facility] [address] [id number] [address] [place] [id number] Feb, [facility] [address] [id number] [address] [place] [id number] Feb, [facility] [address] [id number] [address] [place] [id number] Feb, [facility] [address] [id number] [address] [place] [address], [place] [address] Jan, [facility] [address] [id number] [address] [place] [id number] Jan, [facility] [address] [id number] [address] [place] [id number] Jan, [facility] [address] [id number] [address] [place] [id number] Jan, [facility] [address] [id number] [address] [place] [address], [place] [address] Jan, [facility] [address] [id number] [address] [place] [address], [place] [address] Jan, [facility] [address] [id number] [address] [place] [address], [place] [address] Dec, [facility] [address] [id number] [address] [place] [address], [place] [address] Dec, [facility] [address] [id number] [address] [place] [address], [place] [address] Dec, [facility] [address] [id number] [address] [place] [address], [place] [address] Dec, [facility] [address] [id number] [address] [place] [address], [place] [address] Dec, [facility] [address] [id number] [address] [place] [address], [place] [address] Dec, [facility] [address] [id number] [address] [place] [address], [place] [address] Nov, [facility] [address] [id number] [address] [place] [address], [place] [address] Nov, [facility] [address] [id number] [address] [place] [address], [place] [address] Nov, [facility] [address] [id number] [address] [place] [address], [place] [address] Nov, [facility] [address] [id number] [address] [place] [address], [place] [address] Nov, [facility] [address] [id number] [address] [place] [address], [place] [address] Nov, [facility] [address] [id number] [address] [place] [address], [place] [address] October, [facility] [address] [id number] [address] [place] [address], [place] [address] October, [facility] [address] [id number] [address] [place] [address], [place] [address] October, [facility] [address] [id number] [address] [place] [address], [place] [address] October, [facility] [address] [id number] [address] [place] [address], [place] [address] October, [facility] [address] [id number] [address] [place] [address], [place] [address] 30 Sep, 2012 [facility] [address] [id number] [address] [place] [address], [place] [address] Sep, [facility] [address] [id number] [address] [place] [address], [place] [address] Sep, [facility] [address] [id number] [address] [place] [address], [place] [address] Sep, [facility] [address] [id number] [address] [place] [address], [place] [address] Sep, [facility] [address] [id number] [address] [place] [address], [place] [address] Aug, [facility] [address] [id number] [address] [place] [address], [place] [address] Aug, [facility] [address] [id number] [address] [place] [address], [place] [address] Aug, [facility] [address] [id number] [address] [place] [address], [place] [address] Jul, [facility] [address] [id number] [address] [place] [address], [place] [address] Jul, [facility] [address] [id number] [address] [place] [address], [place] [address] Jul, [facility] [address] [id number] [address] [address] Jul, [facility] [address] [id number] [address] [place] [address], [place] [address] Jul, [facility] [address] [id number] [address] [place] [address], [place] [address] Jul, [facility] [address] [id number] [address] [place] [address], [place] [address] Jun, [facility] [address] [id number] [address] [place] [address] Apr, [facility] [address] [id number] [address] [place] [address], [place] [address] Apr, [facility] [address] [id number] [address] [place] [address], [place] [address] Apr, [facility] [address] [id number] [address] [place] [address], [place] [address] Apr, [facility] [address] [id number] [address] [place] [address], [place] [address] Mar, [facility] [address] [id number] [address] [place] [address], [place] [address] Mar, [facility] [address] [id number] [address] [place] [address] Mar, [facility] [address] [id number] [address] [place] [id number] Mar, [facility] [address] [id number] [address] [place] [address] Mar, [facility] [address] [id number] [address] [place] [phone] Feb, [facility] [address] [id number] [address] [place] [id number] Jan, [facility] [address] [id number] [address] [place] [address], [place] [address] Jan, [facility] [address] [id number] [address] [place] [id number] Jan, [facility] [address] [id number] [address] [place] [id number] Dec, [facility] [address] [id number] [address] [place] [phone] Nov, [facility] [address] [id number] [address] [place] [phone] Nov, [facility] [address] [id number] [address] [place] [id number] Nov, [facility] [address] [id number] [address] [place] [phone] Nov, [facility] [address] [id number] [address] [place] [phone] Nov, [facility] [address] [id number] [address] [place] [phone] October, [facility] [address] [id number] [address] [place] [phone] October, [facility] [address] [id number] [address] [place] [id number] October, [facility] [address] [id number] [address] [place] [id number] October, [facility] [address] [id number] [address] [place] [id number] October, IMMUNIZATIONS No Known Immunizations SOCIAL HISTORY Never Assessed REASON FOR VISIT PLAN OF CARE VITAL SIGNS Blood pressure systolic 126 mmHg 2013-03-17 Blood pressure diastolic 78 mmHg 2013-03-17 MEDICATIONS Unknown Medications RESULTS No Results PROCEDURES [...]
--- OUTSIDE RECORDS SUMMARY | 2020-01-25 08:18 | XMS REPORT ---
Author Author Velma CORDERO Organization [facility] Address [address] [place] [address] Care Team Providers Care Field Care Advocate Name Role Phone STEPHAN CORDERO Unavailable PROBLEMS Type Condition ICD9-CM Code NKU39-PH Code Onset Dates Condition S tatus SNOMED Code Problem Corns L84 Active 807379635 Problem Primary insomnia F51.01 Active 397 2004 Problem Hyperparathyroidism E21.3 Active 77889594 Problem Hypercholesteremia E78.0 Active 1 7528778 Problem Mood disorder F39 Active 173116 05 Problem Arthritis M19.90 Active 1138621 Problem 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 Active 90315161 Problem Myalgia M79.1 Active 96701988 Problem Chronic kidney disease, stage 4 (severe) N18.4 Active 296420136 Problem Primary osteoarthritis of left knee M17.12 Active [id number] Problem Irritable bowel syndrome with both constipation and diarrh ea K58.2 Active 44904018 Problem Other chronic pain G89.29 Active 8 4154226 Problem BPV (benign positional vertigo), bilateral H81.13 Active 610034995 Problem Hyperparathyroidism, unspecified E21.3 Active 74992879 Problem 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 [id number] [address] [place] [id number] 11 Nov, 2019 [facility] [address] [facility] [id number] [address] [place] [id number] 15 Oct, 2019 Hyperparathyroidism, unspeci fied E21.3 [place] [address] [id number] [address] [place] [id number] October, Hyperparathyroidism, unspeci fied E21.3 [facility] [address] [id number] [address] [place] [id number] Sep, Hyperparathyroidism, unspeci fied E21.3 [place] [address] [facility] [id number] [address] [place] [id number] Aug, Hyperparathyroidism, unspeci fied E21.3 [place] [address] [facility] [id number] [address] [place] [id number] Aug, Pain in left knee M25.562 ; Other chronic pain G89.29 ; Unspecified inflammatory spondylopathy, sacral and sacrococcygeal region M46.98 ; Chronic kidney disease, stage 4 (severe) N18.4 and Hyperparathyroidism, unspecified E21.3 [place] [address] [facility] [id number] [address] [place] [id number] Jul, [place] [address] [facility] [id number] [address] [place] [address] Jul, Arthritis M19.90 [place] [address] [facility] [id number] [address] [place] [id number] Jun, Knee pain, left M25.562 [place] [address] [facility] [id number] [address] [place] [id number] May, Arthritis M19.90 [place] [address] [facility] [id number] [address] [place] [address] Apr, Well woman exam without gyne cological exam Z00.00 and Screening for breast cancer Z12.39 [place] [address] [facility] [id number] [address] [place] [id number] Mar, Arthritis M19.90 [place] [address] [facility] [id number] [address] [place] [id number] Mar, Arthritis M19.90 [facility] [address] [id number] [address] [place] [id number] Mar, [facility] [address] [facility] [id number] [address] [place] [id number] Mar, Arthritis M19.90 and Encount er for immunization Z23 [facility] [address] [facility] [id number] [address] [place] [id number] Feb, Arthritis M19.90 [facility] [address] [facility] [id number] [address] [place] [id number] Feb, [facility] [address] [facility] [id number] [address] [place] [id number] Feb, Other specified disorders of bone density and structure, unspecified site M85.80 [facility] [address] [facility] [id number] [address] [place] [id number] Jan, Arthritis M19.90 [facility] [address] [facility] [id number] [address] [place] [id number] Dec, Arthritis M19.90 [facility] [address] [facility] [id number] [address] [place] [id number] Nov, Inflammatory spondylopathy o f sacral region M46.98 [facility] [address] [facility] [id number] [address] [place] [id number] Nov, [facility] [address] [facility] [id number] [address] [place] [id number] Nov, Labyrinthitis of left ear H8 3.02 [facility] [address] [facility] [id number] [address] [place] [id number] Nov, Arthritis M19.90 [facility] [address] [facility] [id number] [address] [place] [id number] Sep, Arthritis M19.90 [facility] [address] [facility] [id number] [address] [place] [id number] Sep, Renal insufficiency N28.9 an d Unspecified kidney failure N19 [facility] [address] [id number] [address] [place] [id number] Sep, Renal insufficiency N28.9 an d Unspecified kidney failure N19 [facility] [address] [id number] [address] [place] [id number] Sep, Arthritis M19.90 [facility] [address] [id number] [address] [place] [phone] Aug, Exercise counseling Z71.82 [facility] [address] [id number] [address] [place] [id number] Aug, [facility] [address] [id number] [address] [place] [id number] 27 Jul, 2018 Labyrinthitis of left ear H8 3.02 [facility] [address] [id number] [address] [place] [id number] Jul, Labyrinthitis of left ear H8 3.02 [facility] [address] [id number] [address] [place] [id number] Jul, Exercise counseling Z71.82 [facility] [address] [id number] [address] [place] [id number] 18 Jul, 2018 [facility] [address] [id number] [address] [place] [id number] 14 Jul, 2018 Arthritis M19.90 [facility] [address] [id number] [address] [place] [id number] 13 Jul, 2018 Encounter for Medicare annua l wellness exam Z00.00 ; Chronic kidney disease, stage 4 (severe) N18.4 ; Body mass index (BMI) of 40.0-44.9 in adult Z68.41 ; Hyperparathyroidism E21.3 and BMI 40.0-44.9, adult Z68.41 [facility] [address] [id number] [address] [place] [id number] 13 Jul, 2018 Encounter for Medicare annua l wellness exam Z00.00 ; Chronic kidney disease, stage 4 (severe) N18.4 ; Hyperparathyroidism E21.3 ; Body mass index (BMI) of 40.0-44.9 in adult Z68.41 and Encounter for immunization Z23 [facility] [address] [id number] [address] [place] [id number] 11 Jul, 2018 Tail bone pain M53.3 [place] [address] [id number] [address] [place] [id number] Jun, Exercise counseling Z71.82 [place] [address] [id number] [address] [place] [id number] Jun, Labyrinthitis of left ear H8 3.02 [place] [address] [id number] [address] [place] [id number] Jun, Tail bone pain M53.3 ; Irrit able bowel syndrome with both constipation and diarrhea K58.2 and Dysfunction of left eustachian tube H69.82 [place] [address] [id number] [address] [place] [id number] Jun, Exercise counseling Z71.82 [place] [address] [id number] [address] [place] [id number] Jun, Arthritis M19.90 [place] [address] [id number] [address] [place] [id number] 16 Jun, 2018 Irritable bowel syndrome wit h both constipation and diarrhea K58.2 ; Tail bone pain M53.3 and Dysfunction of left eustachian tube H69.82 [place] [address] [id number] [address] [place] [id number] Jun, Exercise counseling Z71.82 [place] [address] [id number] [address] [place] [id number] Jun, Exercise counseling Z71.82 [place] [address] [id number] [address] [place] [id number] Jun, Labyrinthitis of left ear H8 3.02 [facility] [address] [id number] [address] [place] [id number] May, Exercise counseling Z71.82 [facility] [address] [id number] [address] [place] [id number] May, Arthritis M19.90 [facility] [address] [id number] [address] [place] [id number] May, Exercise counseling Z71.82 [facility] [address] [id number] [address] [place] [phone] May, Exercise counseling Z71.82 [facility] [address] [id number] [address] [place] [id number] May, Labyrinthitis of left ear H8 3.02 [facility] [address] [id number] [address] [place] [phone] May, Exercise counseling Z71.82 [facility] [address] [id number] [address] [place] [id number] Apr, Arthritis M19.90 [facility] [address] [id number] [address] [place] [id number] Apr, Exercise counseling Z71.82 [facility] [address] [id number] [address] [place] [phone] Apr, Exercise counseling Z71.82 [facility] [address] [id number] [address] [place] [id number] Apr, Primary osteoarthritis of le ft knee M17.12 [facility] [address] [id number] [address] [place] [id number] 08 Apr, 2018 Labyrinthitis of left ear H8 3.02 [facility] [address] [id number] [address] [place] [id number] 30 Mar, 2018 Arthritis M19.90 [facility] [address] [id number] [address] [place] [id number] Mar, [facility] [address] [facility] [id number] [address] [place] [id number] Mar, Chronic kidney disease, stag e 4 (severe) N18.4 [facility] [address] [facility] [id number] [address] [place] [id number] Mar, Chronic kidney disease, stag e 4 (severe) N18.4 [facility] [address] [facility] [id number] [address] [place] [id number] Mar, Labyrinthitis of left ear H8 3.02 [facility] [address] [place] [id number] [address] [place] [id number] Mar, Chronic kidney disease, stag e 4 (severe) N18.4 ; Knee pain, left anterior M25.562 ; Deficiency of other specified B group vitamins E53.8 and Encounter for immunization Z23 [place] [address] [facility] [id number] [address] [place] [phone] Mar, Arthritis M19.90 [place] [address] [facility] [id number] [address] [place] [phone] Feb, Labyrinthitis of left ear H8 3.02 [place] [address] [place] [id number] [address] [place] [id number] Feb, Arthritis M19.90 [facility] [address] [place] [id number] [address] [place] [id number] Jan, Labyrinthitis of left ear H8 3.02 [facility] [address] [facility] [id number] [address] [place] [id number] Jan, Arthritis M19.90 [facility] [address] [facility] [id number] [address] [place] [id number] Dec, Labyrinthitis of left ear H8 3.02 [facility] [address] [facility] [id number] [address] [place] [id number] Nov, Arthritis M19.90 [place] [address] [place] [id number] [address] [place] [phone] Nov, Labyrinthitis of left ear H8 3.02 [place] [address] [place] [id number] [place] [id number] Nov, BMI 40.0-44.9, adult Z68.41 ; Chronic kidney disease, stage 4 (severe) N18.4 and Acute right-sided thoracic back pain M54.6 [place] [address] [place] [id number] [place] [phone] October, Labyrinthitis of left ear H8 3.02 and Arthritis M19.90 [place] [address] [id number] Sep, BPV (benign positional verti go), bilateral H81.13 ; Dysfunction of left eustachian tube H69.82 and BMI 40.0-44.9, adult Z68.41 [place] [address] [id number] Sep, Labyrinthitis of left ear H8 3.02 and Arthritis M19.90 [place] [address] [id number] Sep, [place] [address] [place] [id number] [place] [id number] Sep, [place] [address] [id number] Sep, Chronic kidney disease, stag e 4 (severe) N18.4 [place] [address] [place] [id number] [place] [phone] Sep, Chronic kidney disease, stag e 4 (severe) N18.4 [place] [address] [place] [id number] [address] [place] [id number] Aug, Labyrinthitis of left ear H8 3.02 and Arthritis M19.90 [facility] [address] [id number] [address] [place] [id number] Aug, [facility] [address] [id number] [address] [place] [id number] Jul, [facility] [address] [id number] [address] [place] [id number] Jul, Arthritis M19.90 and Labyrin thitis of left ear H83.02 [facility] [address] [id number] [address] [place] [id number] Jul, [place] [address] [id number] [address] [place] [id number] Jun, [place] [address] [facility] [id number] [address] [place] [phone] Jun, Arthritis M19.90 and Labyrin thitis of left ear H83.02 [place] [address] [facility] [id number] [address] [place] [id number] Jun, Pre-op evaluation Z01.818 ; BMI 40.0-44.9, adult Z68.41 and Encounter for immunization Z23 [place] [address] [facility] [id number] [address] [place] [id number] May, Arthritis M19.90 and Labyrin thitis of left ear H83.02 [place] [address] [facility] [id number] [address] [place] [phone] Apr, Labyrinthitis of left ear H8 3.02 [facility] [address] [facility] [id number] [address] [place] [phone] Apr, Arthritis M19.90 and Labyrin thitis of left ear H83.02 [facility] [address] [facility] [id number] [address] [place] [id number] 10 Mar, 2017 Arthritis M19.90 and Labyrin thitis of left ear H83.02 [place] [address] [facility] [id number] [address] [place] [id number] Mar, Chronic kidney disease, stag e 4 (severe) N18.4 [facility] [address] [facility] [id number] [address] [place] [id number] 06 Feb, 2017 Arthritis M19.90 and Labyrin thitis of left ear H83.02 [facility] [address] [facility] [id number] [address] [place] [id number] Jan, Labyrinthitis of left ear H8 3.02 and Deficiency of other specified B group vitamins E53.8 [facility] [address] [facility] [id number] [address] [place] [id number] Dec, Arthritis M19.90 [facility] [address] [facility] [id number] [address] [place] [id number] Dec, BPV (benign positional verti go), bilateral H81.13 [facility] [address] [facility] [id number] [address] [place] [id number] Dec, [facility] [address] [facility] [id number] [address] [place] [phone] Dec, [facility] [address] [facility] [id number] [address] [place] [id number] Dec, [facility] [address] [facility] [id number] [address] [place] [id number] Nov, Arthritis M19.90 and Deficie ncy of other specified B group vitamins E53.8 [facility] [address] [facility] [id number] [address] [place] [address] Nov, Arthritis M19.90 [facility] [address] [facility] [id number] [address] [place] [phone] Nov, Hyperparathyroidism E21.3 [facility] [address] [facility] [id number] [address] [place] [id number] October, [facility] [address] [facility] [id number] [address] [place] [id number] October, Hyperparathyroidism E21.3 [facility] [address] [facility] [id number] [address] [place] [id number] October, [facility] [address] [facility] [id number] [address] [place] [id number] October, Renal insufficiency N28.9 an d Hyperparathyroidism E21.3 [facility] [address] [place] [id number] [address] [place] [phone] October, [facility] [address] [place] [id number] [address] [place] [id number] October, Renal insufficiency N28.9 an d Hyperparathyroidism E21.3 [facility] [address] [place] [id number] [place] [address] October, Arthritis M19.90 [facility] [address] [id number] Sep, [facility] [address] [address] Sep, Lumbar neuritis M54.16 ; Tho racic abscess J86.9 and Deficiency of other specified B group vitamins E53.8 [facility] [address] [place] [id number] [address] [place] [id number] Sep, [facility] [address] [place] [id number] [address] [place] [id number] Aug, Arthritis M19.90 [facility] [address] [place] [id number] [address] [place] [id number] Aug, Hyperparathyroidism E21.3 [facility] [address] [place] [id number] [address] [place] [id number] Aug, Hyperparathyroidism E21.3 [facility] [address] [place] [id number] [address] [place] [id number] Aug, Arthritis M19.90 [facility] [address] [place] [id number] [address] [place] [id number] Jul, Mass of throat R22.1 [facility] [address] [facility] [id number] [address] [place] [id number] Jul, [facility] [address] [facility] [id number] [address] [place] [id number] 10 Jul, 2016 Arthritis M19.90 [facility] [address] [facility] [id number] [address] [place] [phone] Jun, Arthritis M19.90 [facility] [address] [facility] [id number] [address] [place] [id number] Jun, [facility] [address] [id number] Jun, Renal insufficiency N28.9 an d Parathyroid abnormality E21.5 [facility] [address] [place] [id number] [address] [place] [id number] 05 Jun, 2016 Medicare welcome exam Z00.00 ; Encounter for immunization Z23 ; Arthritis M19.90 ; Medicare annual wellness visit, initial Z00.00 ; Medicare annual wellness visit, subsequent Z00.00 and Deficiency of other specified B group vitamins E53.8 [facility] [address] [facility] [id number] [address] [place] [id number] May, Renal insufficiency N28.9 an d Parathyroid abnormality E21.5 [facility] [address] [facility] [id number] [address] [place] [id number] May, Renal insufficiency N28.9 [facility] [address] [facility] [id number] [address] [place] [id number] May, Renal insufficiency N28.9 [facility] [address] [place] [id number] [address] [place] [id number] May, [facility] [address] [place] [id number] [address] [place] [phone] Apr, [facility] [address] [place] [id number] [address] [place] [phone] Apr, [facility] [address] [id number] [address] [place] [id number] 14 Apr, 2016 Mass of throat R22.1 [facility] [address] [id number] [address] [place] [id number] 10 Apr, 2016 [facility] [facility] [address] [id number] [address] [place] [id number] Apr, Mass of throat R22.1 [facility] [address] [id number] [address] [place] [id number] 04 Apr, 2016 Mass of throat R22.1 [facility] [address] [id number] [address] [place] [address] Mar, [facility] [address] [facility] [id number] [address] [place] [address] Mar, [facility] [address] [facility] [id number] [address] [place] [address] Mar, [facility] [address] [facility] [id number] [address] [place] [address] Mar, Parathyroid abnormality E21. 5 and Encounter for immunization Z23 [facility] [address] [facility] [id number] [address] [place] [address] Mar, [facility] [address] [facility] [id number] [address] [place] [address] Mar, [facility] [address] [facility] [id number] [address] [place] [address] 21 Feb, 2016 Renal insufficiency N28.9 an d Hyperparathyroidism E21.3 [facility] [address] [facility] [id number] [address] [place] [id number] 19 Feb, 2016 [facility] [address] [facility] [id number] [address] [place] [id number] 15 Feb, 2016 Renal insufficiency N28.9 an d Hyperparathyroidism E21.3 [facility] [address] [facility] [id number] [address] [place] [id number] 14 Feb, 2016 [facility] [address] [id number] [address] [place] [address] Feb, [facility] [address] [facility] [id number] [address] [place] [id number] 09 Feb, 2016 [facility] [address] [facility] [id number] [address] [place] [address] Jan, [facility] [address] [facility] [id number] [address] [place] [address] Jan, Arthritis M19.90 ; Lumbago w ith sciatica, right side M54.41 and Other chronic pain G89.29 [facility] [address] [facility] [id number] [address] [place] [address] Jan, [facility] [address] [facility] [id number] [address] [place] [address] Dec, Arthritis M19.90 ; Lumbago w ith sciatica, right side M54.41 and Other chronic pain G89.29 [facility] [address] [facility] [id number] [address] [place] [address] Nov, Deficiency of other specifie d B group vitamins E53.8 ; Primary insomnia F51.01 ; Mood disorder F39 and Lumbago with sciatica, right side M54.41 [facility] [address] [facility] [id number] [address] [place] [address] Nov, Hyperparathyroidism E21.3 [facility] [address] [facility] [id number] [address] [place] [address] Nov, Unspecified kidney failure N 19 and Hyperparathyroidism E21.3 [facility] [address] [facility] [id number] [address] [place] [address] October, Hyperparathyroidism E21.3 [facility] [address] [facility] [id number] [address] [place] [id number] October, [facility] [address] [facility] [id number] [address] [place] [address] October, Hyperparathyroidism E21.3 [facility] [address] [address] October, Hyperparathyroidism E21.3 [facility] [address] [address] Sep, Hyperparathyroidism E21.3 ; Hypercholesterolemia E78.0 and Arthritis M19.90 [facility] [address] [address] Aug, [facility] [address] [address] Aug, Deficiency of other specifie d B group vitamins E53.8 [facility] [address] [address] Aug, [facility] [address] [address] Jul, Urinary frequency R35.0 [facility] [address] [address] Jul, Urinary frequency R35.0 [facility] [address] [address] Jul, [facility] [address] [address] Jul, [facility] [address] [address] Jun, Pain in left knee M25.562 [place] [address] [address] Jun, [facility] [address] [address] May, Swelling of left knee joint M25.462 [place] [address] [address] May, [facility] [address] [facility] [id number] [address] [place] [address] May, [facility] [address] [facility] [id number] [address] [place] [address] May, [facility] [address] [facility] [id number] [address] [place] [address] Apr, Renal insufficiency N28.9 an d Chronic kidney disease, stage 4 (severe) N18.4 [facility] [address] [facility] [id number] [address] [place] [address] Apr, Unspecified kidney failure N 19 [facility] [address] [facility] [id number] [place] [id number] Apr, Unspecified kidney failure N 19 [facility] [address] [place] [id number] [place] [address] Apr, [facility] [address] [place] [id number] [address] [place] [address] Apr, Hyperparathyroidism, unspeci fied 252.00 [facility] [address] [place] [id number] [address] [place] [address] Apr, [facility] [address] [facility] [id number] [address] [place] [address] Mar, [facility] [address] [place] [id number] [address] [place] [id number] Mar, [facility] [address] [facility] [id number] [address] [place] [address] Mar, Hyperparathyroidism, unspeci fied 252.00 [facility] [address] [place] [id number] [address] [place] [address] Feb, [facility] [address] [facility] [id number] [address] [place] [address] Feb, Otalgia 388.70 [facility] [address] [place] [id number] [address] [place] [id number] Feb, [facility] [address] [id number] [address] [place] [id number] Feb, [facility] [address] [id number] [address] [place] [id number] Jan, [facility] [address] [id number] [address] [place] [address] Jan, Hyperparathyroidism, unspeci fied 252.00 [facility] [address] [id number] [address] [place] [address] Jan, [facility] [address] [id number] [address] [place] [address] Jan, Other B-complex deficiencies 266.2 and Hyperparathyroidism, unspecified 252.00 [facility] [address] [id number] [address] [place] [id number] Jan, [facility] [address] [id number] [address] [place] [address] Jan, [facility] [address] [id number] [address] [place] [id number] Jan, [facility] [address] [id number] [address] [place] [id number] Dec, [facility] [address] [id number] [address] [place] [address] Dec, [facility] [address] [id number] [address] [place] [id number] Dec, [facility] [address] [id number] [address] [place] [address] Nov, Routine check-up V70.0 and P re-op exam V72.84 [facility] [address] [id number] [address] [place] [address] Nov, [facility] [address] [id number] [address] [place] [id number] Nov, [facility] [address] [id number] [address] [place] [address], [place] [address] October, [facility] [address] [id number] [address] [place] [address], [place] [address] October, Other B-complex deficiencies 266.2 [facility] [address] [id number] [address] [place] [address], [place] [address] October, [facility] [address] [id number] [address] [place] [address], [place] [address] Sep, [facility] [address] [id number] [address] [place] [address], [place] [address] Sep, [facility] [address] [id number] [address] [place] [address] Aug, [facility] [address] [id number] [address] [place] [address], [place] [address] Aug, [facility] [address] [id number] [address] [place] [id number] Aug, [facility] [address] [id number] [address] [place] [address], [place] [address] Aug, [facility] [address] [id number] [address] [place] [id number] Aug, [facility] [address] [id number] [address] [place] [id number] Aug, [facility] [address] [id number] [address] [place] [phone] Jul, [facility] [address] [id number] [address] [place] [address], [place] [address] Jul, [facility] [address] [id number] [address] [place] [id number] Jul, [facility] [address] [id number] [address] [place] [id number] Jul, [facility] [address] [id number] [address] [place] [address], [place] [address] Jul, 2014 [facility] [address] [id number] [address] [place] [address], [place] [address] Jul, 2014 [facility] [address] [id number] [address] [place] [address], [place] [address] Jul, 2014 [facility] [address] [id number] [address] [place] [address], [place] [address] Jul, 2014 [facility] [address] [id number] [address] [place] [address], [place] [address] Jul, 2014 [facility] [address] [id number] [address] [place] [address], [place] [address] Jul, 2014 [facility] [address] [id number] [address] [place] [address], [place] [address] Jul, 2014 [facility] [address] [id number] [address] [place] [address], [place] [address] Jul, 2014 [facility] [address] [id number] [address] [place] [address], [place] [address] Jul, [facility] [address] [id number] [address] [place] [address], [place] [address] Jul, [facility] [address] [id number] [address] [place] [address], [place] [address] Jun, [facility] [address] [id number] [address] [place] [id number] Jun, [facility] [address] [id number] [address] [place] [address], [place] [address] Jun, [facility] [address] [id number] [address] [place] [address], [place] [address] Jun, [facility] [address] [id number] [address] [place] [address] Jun, [facility] [address] [id number] [address] [place] [address] Jun, [facility] [address] [id number] [address] [place] [address], [place] [address] Jun, [facility] [address] [id number] [address] [place] [address], [place] [address] Jun, [facility] [address] [id number] [address] [place] [address], [place] [address] Jun, [facility] [address] [id number] [address] [place] [address], [place] [address] Jun, [facility] [address] [id number] [address] [place] [address], [place] [address] Jun, [facility] [address] [id number] [address] [place] [address], [place] [address] Jun, [facility] [address] [id number] [address] [place] [address], [place] [address] Jun, [facility] [address] [id number] [address] [place] [address], [place] [address] Jun, [facility] [address] [id number] [address] [place] [address], [place] [address] May, [facility] [address] [id number] [address] [place] [address], [place] [address] May, [facility] [address] [id number] [address] [place] [address], [place] [address] May, [facility] [address] [id number] [address] [place] [address], [place] [address] May, [facility] [address] [id number] [address] [place] [address], [place] [address] Apr, [facility] [address] [id number] [address] [place] [address], [place] [address] Apr, [facility] [address] [id number] [address] [place] [address], [place] [address] Apr, [facility] [address] [id number] [address] [place] [address], [place] [address] Apr, [facility] [address] [id number] [address] [place] [address], [place] [address] Apr, [facility] [address] [id number] [address] [place] [address], [place] [address] Apr, [facility] [address] [id number] [address] [place] [address], [place] [address] Mar, [facility] [address] [id number] [address] [place] [address], [place] [address] Mar, [facility] [address] [id number] [address] [place] [address], [place] [address] Mar, [facility] [address] [id number] [address] [place] [address], [place] [address] Mar, [facility] [address] [id number] [address] [place] [address], [place] [address] Mar, [facility] [address] [id number] [address] [place] [address], [place] [address] Mar, [facility] [address] [id number] [address] [place] [address], [place] [address] Mar, [facility] [address] [id number] [address] [place] [address], [place] [address] Mar, [facility] [address] [id number] [address] [place] [address], [place] [address] Mar, [facility] [address] [id number] [address] [place] [address], [place] [address] Mar, [facility] [address] [id number] [address] [place] [address], [place] [address] Mar, [facility] [address] [id number] [address] [place] [address], [place] [address] Mar, [facility] [address] [id number] [address] [place] [address], [place] [address] Mar, [facility] [address] [id number] [facility] [place] [address] Feb, [facility] [address] [id number] [address] [place] [address], [place] [address] Feb, [facility] [address] [id number] [address] [place] [address], [place] [address] Feb, [facility] [address] [id number] [address] [place] [address], [place] [address] Feb, [facility] [address] [id number] [address] [place] [address], [place] [address] Feb, [facility] [address] [id number] [address] [place] [address], [place] [address] Feb, [facility] [address] [id number] [address] [place] [address], [place] [address] Feb, [facility] [address] [id number] [address] [place] [address], [place] [address] Feb, [facility] [address] [id number] [address] [place] [address], [place] [address] Feb, [facility] [address] [id number] [address] [place] [address], [place] [address] Feb, [facility] [address] [id number] [address] [place] [address], [place] [address] Jan, [facility] [address] [id number] [address] [place] [address], [place] [address] Jan, [facility] [address] [id number] [address] [place] [address], [place] [address] Dec, [facility] [address] [id number] [address] [place] [address], [place] [address] Dec, [facility] [address] [id number] [address] [place] [address], [place] [address] Dec, [facility] [address] [id number] [address] [place] [address], [place] [address] Dec, [facility] [address] [id number] [facility] [place] [address] Dec, [facility] [address] [id number] [facility] [place] [address] Dec, [facility] [address] [id number] [address] [place] [address], [place] [address] Nov, [facility] [address] [id number] [address] [place] [address], [place] [address] Nov, [facility] [address] [id number] [address] [place] [address], [place] [address] Nov, [facility] [address] [id number] [address] [place] [address], [place] [address] Nov, [facility] [address] [id number] [address] [place] [address], [place] [address] October, [facility] [address] [id number] [address] [place] [address], [place] [address] October, [facility] [address] [id number] [address] [place] [address], [place] [address] October, [facility] [address] [id number] [address] [place] [address], [place] [address] October, [facility] [address] [id number] [address] [place] [address], [place] [address] October, [facility] [address] [id number] [address] [place] [address], [place] [address] October, [facility] [address] [id number] [address] [place] [address], [place] [address] October, [facility] [address] [id number] [address] [place] [address], [place] [address] October, [facility] [address] [id number] [address] [place] [address], [place] [address] October, [facility] [address] [id number] [address] [place] [address], [place] [address] October, [facility] [address] [id number] [address] [place] [address], [place] [address] October, [facility] [address] [id number] [address] [place] [address], [place] [address] October, [facility] [address] [id number] [address] [place] [address], [place] [address] October, [facility] [address] [id number] [address] [place] [address], [place] [address] October, [facility] [address] [id number] [address] [place] [address], [place] [address] October, [facility] [address] [id number] [address] [place] [address], [place] [address] October, [facility] [address] [id number] [address] [place] [address], [place] [address] Sep, [facility] [address] [id number] [address] [place] [address], [place] [address] Sep, [facility] [address] [id number] [address] [place] [address], [place] [address] Sep, [facility] [address] [id number] [address] [place] [address], [place] [address] Sep, [facility] [address] [id number] [address] [place] [address], [place] [address] Sep, [facility] [address] [id number] [address] [place] [address], [place] [address] Sep, [facility] [address] [id number] [address] [place] [address], [place] [address] Aug, [facility] [address] [id number] [address] [place] [address], [place] [address] Aug, [facility] [address] [id number] [address] [place] [address], [place] [address] Aug, [facility] [address] [id number] [address] [place] [address], [place] [address] Aug, [facility] [address] [id number] [address] [place] [address], [place] [address] Aug, [facility] [address] [id number] [address] [place] [address], [place] [address] Aug, [facility] [address] [id number] [address] [place] [address], [place] [address] Jul, [facility] [address] [id number] [address] [place] [address], [place] [address] Jul, [facility] [address] [id number] [address] [place] [address], [place] [address] Jul, [facility] [address] [id number] [address] [place] [address], [place] [address] Jul, [facility] [address] [id number] [address] [place] [address], [place] [address] Jun, [facility] [address] [id number] [address] [place] [address], [place] [address] Jun, [facility] [address] [id number] [address] [place] [address], [place] [address] May, [facility] [address] [id number] [address] [place] [address], [place] [address] May, [facility] [address] [id number] [address] [place] [address], [place] [address] May, [facility] [address] [id number] [address] [place] [address], [place] [address] May, [facility] [address] [id number] [address] [place] [address], [place] [address] May, [facility] [address] [id number] [address] [place] [address], [place] [address] Apr, [facility] [facility] [address] [id number] [address] [place] [address], [place] [address] 13 Apr, 2013 [facility] [address] [id number] [address] [place] [address], [place] [address] Apr, [facility] [address] [id number] [address] [place] [address], [place] [address] Apr, [facility] [address] [id number] [address] [place] [address], [place] [address] Apr, [facility] [address] [id number] [address] [place] [address], [place] [address] 04 Apr, 2013 [facility] [address] [id number] [address] [place] [address], [place] [address] 15 Mar, 2013 [facility] [address] [id number] [address] [place] [address], [place] [address] 15 Mar, 2013 [facility] [address] [id number] [address] [place] [address], [place] [address] 14 Mar, 2013 [facility] [address] [id number] [address] [place] [address], [place] [address] 14 Mar, 2013 [facility] [address] [id number] [address] [place] [address], [place] [address] Mar, [facility] [address] [id number] [address] [place] [address], [place] [address] Mar, [facility] [address] [id number] [address] [place] [address], [place] [address] 23 Feb, 2013 [facility] [address] [id number] [address] [place] [address], [place] [address] 19 Feb, 2013 [facility] [address] [id number] [address] [place] [address], [place] [address] 04 Feb, 2013 [facility] [address] [id number] [address] [place] [address], [place] [address] Jan, [facility] [address] [id number] [address] [place] [address], [place] [address] Jan, [facility] [address] [id number] [address] [place] [address], [place] [address] Jan, [facility] [address] [id number] [address] [place] [address], [place] [address] Jan, [facility] [address] [id number] [address] [place] [address], [place] [address] Jan, [facility] [address] [id number] [address] [place] [address], [place] [address] Jan, [facility] [address] [id number] [address] [place] [address], [place] [address] Dec, [facility] [address] [id number] [address] [place] [address], [place] [address] Dec, [facility] [address] [id number] [address] [place] [address], [place] [address] Dec, [facility] [address] [id number] [address] [place] [address], [place] [address] Dec, [facility] [address] [id number] [address] [place] [address], [place] [address] Dec, [facility] [address] [id number] [address] [place] [address], [place] [address] Dec, [facility] [address] [id number] [address] [place] [address], [place] [address] Nov, [facility] [address] [id number] [address] [place] [address], [place] [address] Nov, [facility] [address] [id number] [address] [place] [address], [place] [address] Nov, [facility] [address] [id number] [address] [place] [address], [place] [address] Nov, [facility] [address] [id number] [address] [place] [address], [place] [address] Nov, [facility] [address] [id number] [address] [place] [address], [place] [address] Nov, [facility] [address] [id number] [address] [place] [address], [place] [address] October, [facility] [address] [id number] [address] [place] [address], [place] [address] October, [facility] [address] [id number] [address] [place] [address], [place] [address] October, [facility] [address] [id number] [address] [place] [address], [place] [address] October, [facility] [address] [id number] [address] [place] [address], [place] [address] October, [facility] [address] [id number] [address] [place] [address], [place] [address] Sep, [facility] [address] [id number] [address] [place] [address], [place] [address] Sep, [facility] [address] [id number] [address] [place] [address], [place] [address] Sep, [facility] [address] [id number] [address] [place] [address], [place] [address] Sep, [facility] [address] [id number] [address] [place] [address], [place] [address] Sep, [facility] [address] [id number] [address] [place] [address], [place] [address] Aug, [facility] [address] [id number] [address] [place] [address], [place] [address] Aug, [facility] [address] [id number] [address] [place] [address], [place] [address] Aug, [facility] [address] [id number] [address] [place] [address], [place] [address] Jul, [facility] [address] [id number] [address] [place] [address], [place] [address] Jul, [facility] [address] [id number] [address] [place] [address], [place] [address] Jul, 2012 [facility] [address] [id number] [address] [place] [address], [place] [address] 08 Jul, 2012 [facility] [address] [id number] [address] [place] [address], [place] [address] 06 Jul, 2012 [facility] [address] [id number] [address] [place] [address], [place] [address] 05 Jul, 2012 [facility] [address] [id number] [address] [place] [address], [place] [address] Jun, [facility] [address] [id number] [address] [place] [address], [place] [address] Apr, [facility] [address] [id number] [address] [place] [address], [place] [address] Apr, [facility] [address] [id number] [address] [place] [address] Apr, [facility] [address] [id number] [address] [place] [address], [place] [address] Apr, [facility] [address] [id number] [address] [place] [address] Mar, [facility] [address] [id number] [address] [place] [address] Mar, [facility] [address] [id number] [address] [place] [address] Mar, [facility] [address] [id number] [address] [place] [address] Mar, [facility] [address] [id number] [address] [place] [address] Mar, [facility] [address] [id number] [address] [place] [address] 04 Feb, 2012 [facility] [address] [id number] [address] [place] [address] Jan, [facility] [address] [id number] [address] [place] [address] Jan, [facility] [address] [id number] [address] [place] [address] Jan, [facility] [address] [id number] [address] [place] [address] Dec, [facility] [address] [id number] [address] [place] [address] Nov, [facility] [address] [id number] [address] [place] [address] Nov, [facility] [address] [id number] [address] [place] [address] Nov, [facility] [address] [id number] [address] [place] [id number] Nov, [facility] [address] [id number] [address] [place] [address] Nov, [facility] [address] [id number] [address] [place] [address] October, [facility] [address] [id number] [address] [place] [address] October, [facility] [address] [id number] [address] [place] [id number] October, [facility] [address] [id number] [address] [place] [address] October, [facility] [address] [id number] [address] [place] [id number] October, IMMUNIZATIONS No Known Immunizations SOCIAL HISTORY [...]
--- OUTSIDE RECORDS SUMMARY | 2020-01-25 08:18 | XMS REPORT ---
Author Author Velma CORDERO Organization [facility] Address [address] [place] [address] Care Team Providers Care Population Health Coach Name Role Phone STEPHAN CORDERO Unavailable PROBLEMS Type Condition ICD9-CM Code GRL03-CW Code Onset Dates Condition S tatus SNOMED Code Problem Corns L84 Active 050067151 Problem Primary insomnia F51.01 Active 397 2004 Problem Hyperparathyroidism E21.3 Active 22745754 Problem Hypercholesteremia E78.0 Active 1 2634573 Problem Mood disorder F39 Active 474633 05 Problem Arthritis M19.90 Active 1585329 Problem 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 Active 39003966 Problem Myalgia M79.1 Active 10910211 Problem Chronic kidney disease, stage 4 (severe) N18.4 Active 621017417 Problem Primary osteoarthritis of left knee M17.12 Active [id number] Problem Irritable bowel syndrome with both constipation and diarrh ea K58.2 Active 13615428 Problem Other chronic pain G89.29 Active 8 6760820 Problem BPV (benign positional vertigo), bilateral H81.13 Active 381264124 Problem Hyperparathyroidism, unspecified E21.3 Active 77400314 Problem Parathyroid abnormality E21.5 Active 09150915 Problem Body mass index (BMI) of 40.0-44.9 in adult Z68.41 Active 893694842 Problem Unspecified kidney failure N19 Act chip 69004017 Problem 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 Active 431980975 Problem Unspecified inflammatory spo ndylopathy, sacral and sacrococcygeal region M46.98 Active 45726342 ALLERGIES No Information ENCOUNTERS Encounter Location Date Diagnosis [facility] [address] [facility] [id number] [address] [place] [phone] October, Hyperparathyroidism, unspeci fied E21.3 [facility] [address] [facility] [id number] [address] [place] [phone] Sep, Hyperparathyroidism, unspeci fied E21.3 [facility] [address] [id number] [address] [place] [phone] Aug, Hyperparathyroidism, unspeci fied E21.3 [facility] [address] [id number] [address] [place] [id number] 05 Aug, 2019 Pain in left knee M25.562 ; Other chronic pain G89.29 ; Unspecified inflammatory spondylopathy, sacral and sacrococcygeal region M46.98 ; Chronic kidney disease, stage 4 (severe) N18.4 and Hyperparathyroidism, unspecified E21.3 [place] [address] [id number] [address] [place] [phone] Jul, [place] [address] [id number] [address] [place] [phone] Jul, Arthritis M19.90 [place] [address] [id number] [address] [place] [phone] Jun, Knee pain, left M25.562 [place] [address] [id number] [address] [place] [phone] May, Arthritis M19.90 [place] [address] [facility] [id number] [address] [place] [phone] Apr, Well woman exam without gyne cological exam Z00.00 and Screening for breast cancer Z12.39 [place] [address] [id number] [address] [place] [id number] Mar, Arthritis M19.90 [place] [address] [id number] [address] [place] [phone] Mar, Arthritis M19.90 [facility] [address] [id number] [address] [place] [phone] Mar, [facility] [address] [facility] [id number] [address] [place] [phone] Mar, Arthritis M19.90 and Encount er for immunization Z23 [facility] [address] [facility] [id number] [address] [place] [phone] 30 Feb, 2019 Arthritis M19.90 [facility] [address] [id number] [address] [place] [phone] 13 Feb, 2019 [facility] [address] [facility] [id number] [address] [place] [phone] Feb, Other specified disorders of bone density and structure, unspecified site M85.80 [facility] [address] [id number] [address] [place] [id number] Jan, Arthritis M19.90 [facility] [address] [facility] [id number] [address] [place] [phone] Dec, Arthritis M19.90 [facility] [address] [facility] [id number] [address] [place] [phone] Nov, Inflammatory spondylopathy o f sacral region M46.98 [facility] [address] [facility] [id number] [address] [place] [phone] Nov, [facility] [address] [facility] [id number] [address] [place] [id number] Nov, Labyrinthitis of left ear H8 3.02 [facility] [address] [facility] [id number] [address] [place] [phone] 03 Nov, 2018 Arthritis M19.90 [facility] [address] [facility] [id number] [address] [place] [id number] 15 Sep, 2018 Arthritis M19.90 [facility] [address] [facility] [id number] [address] [place] [phone] Sep, Renal insufficiency N28.9 an d Unspecified kidney failure N19 [facility] [address] [facility] [id number] [address] [place] [phone] Sep, Renal insufficiency N28.9 an d Unspecified kidney failure N19 [facility] [address] [facility] [id number] [address] [place] [phone] Sep, Arthritis M19.90 [facility] [address] [id number] [address] [place] [phone] Aug, Exercise counseling Z71.82 [facility] [address] [id number] [address] [place] [phone] Aug, [facility] [address] [id number] [address] [place] [phone] 27 Jul, 2018 Labyrinthitis of left ear H8 3.02 [facility] [address] [id number] [address] [place] [phone] 22 Jul, 2018 Labyrinthitis of left ear H8 3.02 [facility] [address] [facility] [id number] [address] [place] [phone] 19 Jul, 2018 Exercise counseling Z71.82 [facility] [address] [facility] [id number] [address] [place] [phone] 18 Jul, 2018 [facility] [address] [facility] [id number] [address] [place] [id number] 14 Jul, 2018 Arthritis M19.90 [facility] [address] [facility] [id number] [address] [place] [id number] 13 Jul, 2018 Encounter for Medicare annua l wellness exam Z00.00 ; Chronic kidney disease, stage 4 (severe) N18.4 ; Body mass index (BMI) of 40.0-44.9 in adult Z68.41 ; Hyperparathyroidism E21.3 and BMI 40.0-44.9, adult Z68.41 [facility] [address] [facility] [id number] [address] [place] [phone] 13 Jul, 2018 Encounter for Medicare annua l wellness exam Z00.00 ; Chronic kidney disease, stage 4 (severe) N18.4 ; Hyperparathyroidism E21.3 ; Body mass index (BMI) of 40.0-44.9 in adult Z68.41 and Encounter for immunization Z23 [facility] [address] [facility] [id number] [address] [place] [phone] Jul, Tail bone pain M53.3 [facility] [address] [id number] [address] [place] [phone] Jun, Exercise counseling Z71.82 [facility] [address] [id number] [address] [place] [phone] Jun, Labyrinthitis of left ear H8 3.02 [facility] [address] [id number] [address] [place] [phone] Jun, Tail bone pain M53.3 ; Irrit able bowel syndrome with both constipation and diarrhea K58.2 and Dysfunction of left eustachian tube H69.82 [facility] [address] [id number] [address] [place] [phone] Jun, Exercise counseling Z71.82 [place] [address] [id number] [address] [place] [phone] Jun, Arthritis M19.90 [facility] [address] [id number] [address] [place] [id number] Jun, Irritable bowel syndrome wit h both constipation and diarrhea K58.2 ; Tail bone pain M53.3 and Dysfunction of left eustachian tube H69.82 [facility] [address] [id number] [address] [place] [id number] Jun, Exercise counseling Z71.82 [facility] [address] [id number] [address] [place] [phone] Jun, Exercise counseling Z71.82 [facility] [address] [id number] [address] [place] [phone] Jun, Labyrinthitis of left ear H8 3.02 [facility] [address] [id number] [address] [place] [id number] May, Exercise counseling Z71.82 [facility] [address] [id number] [address] [place] [phone] May, Arthritis M19.90 [facility] [address] [id number] [address] [place] [phone] May, Exercise counseling Z71.82 [facility] [address] [id number] [address] [place] [phone] May, Exercise counseling Z71.82 [facility] [address] [id number] [address] [place] [phone] May, Labyrinthitis of left ear H8 3.02 [facility] [address] [id number] [address] [place] [phone] May, Exercise counseling Z71.82 [facility] [address] [id number] [address] [place] [phone] Apr, Arthritis M19.90 [facility] [address] [id number] [address] [place] [phone] Apr, Exercise counseling Z71.82 [facility] [address] [id number] [address] [place] [phone] Apr, Exercise counseling Z71.82 [facility] [address] [id number] [address] [place] [phone] Apr, Primary osteoarthritis of le ft knee M17.12 [facility] [address] [id number] [address] [place] [phone] Apr, Labyrinthitis of left ear H8 3.02 [facility] [address] [id number] [address] [place] [phone] Mar, Arthritis M19.90 [facility] [address] [id number] [address] [place] [phone] Mar, [facility] [address] [id number] [address] [place] [phone] Mar, Chronic kidney disease, stag e 4 (severe) N18.4 [facility] [address] [id number] [address] [place] [phone] Mar, Chronic kidney disease, stag e 4 (severe) N18.4 [facility] [address] [facility] [id number] [address] [place] [phone] Mar, Labyrinthitis of left ear H8 3.02 [facility] [address] [place] [id number] [address] [place] [id number] Mar, Chronic kidney disease, stag e 4 (severe) N18.4 ; Knee pain, left anterior M25.562 ; Deficiency of other specified B group vitamins E53.8 and Encounter for immunization Z23 [place] [address] [facility] [id number] [address] [place] [phone] Mar, Arthritis M19.90 [facility] [address] [facility] [id number] [address] [place] [id number] Feb, Labyrinthitis of left ear H8 3.02 [facility] [address] [place] [id number] [address] [place] [phone] Feb, Arthritis M19.90 [facility] [address] [facility] [id number] [address] [place] [phone] Jan, Labyrinthitis of left ear H8 3.02 [facility] [address] [place] [id number] [address] [place] [id number] Jan, Arthritis M19.90 [facility] [address] [facility] [id number] [address] [place] [phone] Dec, Labyrinthitis of left ear H8 3.02 [facility] [address] [facility] [id number] [address] [place] [phone] Nov, Arthritis M19.90 [facility] [address] [facility] [id number] [address] [place] [phone] Nov, Labyrinthitis of left ear H8 3.02 [facility] [address] [place] [id number] [address] [place] [phone] Nov, BMI 40.0-44.9, adult Z68.41 ; Chronic kidney disease, stage 4 (severe) N18.4 and Acute right-sided thoracic back pain M54.6 [facility] [address] [facility] [id number] [address] [place] [phone] October, Labyrinthitis of left ear H8 3.02 and Arthritis M19.90 [facility] [address] [place] [id number] [place] [phone] Sep, BPV (benign positional verti go), bilateral H81.13 ; Dysfunction of left eustachian tube H69.82 and BMI 40.0-44.9, adult Z68.41 [place] [address] [place] [id number] [address] [place] [phone] Sep, Labyrinthitis of left ear H8 3.02 and Arthritis M19.90 [facility] [address] [place] [id number] [address] [place] [phone] Sep, [facility] [address] [place] [id number] [address] [place] [phone] Sep, [facility] [address] [place] [id number] [address] [place] [phone] Sep, Chronic kidney disease, stag e 4 (severe) N18.4 [facility] [address] [facility] [id number] [address] [place] [phone] Sep, Chronic kidney disease, stag e 4 (severe) N18.4 [facility] [address] [facility] [id number] [address] [place] [id number] Aug, Labyrinthitis of left ear H8 3.02 and Arthritis M19.90 [facility] [address] [facility] [id number] [address] [place] [phone] Aug, [facility] [address] [facility] [id number] [address] [place] [phone] Jul, [facility] [address] [place] [id number] [address] [place] [phone] Jul, Arthritis M19.90 and Labyrin thitis of left ear H83.02 [place] [address] [place] [id number] [address] [place] [phone] Jul, [place] [address] [place] [id number] [address] [place] [id number] Jun, [place] [address] [place] [id number] [place] [phone] Jun, Arthritis M19.90 and Labyrin thitis of left ear H83.02 [place] [address] [place] [id number] [place] [phone] Jun, Pre-op evaluation Z01.818 ; BMI 40.0-44.9, adult Z68.41 and Encounter for immunization Z23 [place] [address] [place] [id number] [address] [place] [id number] May, Arthritis M19.90 and Labyrin thitis of left ear H83.02 [place] [address] [place] [id number] [address] [place] [phone] Apr, Labyrinthitis of left ear H8 3.02 [place] [address] [place] [id number] [address] [place] [id number] 07 Apr, 2017 Arthritis M19.90 and Labyrin thitis of left ear H83.02 [place] [address] [place] [id number] [address] [place] [id number] Mar, Arthritis M19.90 and Labyrin thitis of left ear H83.02 [place] [address] [place] [id number] [address] [place] [id number] 05 Mar, 2017 Chronic kidney disease, stag e 4 (severe) N18.4 [place] [address] [place] [id number] [address] [place] [phone] 06 Feb, 2017 Arthritis M19.90 and Labyrin thitis of left ear H83.02 [facility] [address] [id number] [address] [place] [phone] Jan, Labyrinthitis of left ear H8 3.02 and Deficiency of other specified B group vitamins E53.8 [facility] [address] [id number] [address] [place] [id number] Dec, Arthritis M19.90 [facility] [address] [id number] [address] [place] [phone] Dec, BPV (benign positional verti go), bilateral H81.13 [facility] [address] [facility] [id number] [address] [place] [phone] Dec, [facility] [address] [facility] [id number] [address] [place] [phone] Dec, [facility] [address] [facility] [id number] [address] [place] [phone] Dec, [facility] [address] [facility] [id number] [address] [place] [phone] Nov, Arthritis M19.90 and Deficie ncy of other specified B group vitamins E53.8 [facility] [address] [facility] [id number] [address] [place] [phone] Nov, Arthritis M19.90 [facility] [address] [facility] [id number] [address] [place] [phone] Nov, Hyperparathyroidism E21.3 [facility] [address] [facility] [id number] [address] [place] [phone] October, [facility] [address] [facility] [id number] [address] [place] [phone] October, Hyperparathyroidism E21.3 [facility] [address] [facility] [id number] [address] [place] [phone] October, [facility] [address] [facility] [id number] [address] [place] [phone] October, Renal insufficiency N28.9 an d Hyperparathyroidism E21.3 [facility] [address] [facility] [id number] [address] [place] [phone] October, [facility] [address] [phone] October, Renal insufficiency N28.9 an d Hyperparathyroidism E21.3 [facility] [address] [place] [id number] [address] [place] [phone] October, Arthritis M19.90 [facility] [address] [place] [id number] [address] [place] [phone] Sep, [facility] [address] [id number] Sep, Lumbar neuritis M54.16 ; Tho racic abscess J86.9 and Deficiency of other specified B group vitamins E53.8 [facility] [address] [place] [id number] [address] [place] [phone] Sep, [facility] [address] [place] [id number] [address] [place] [phone] Aug, Arthritis M19.90 [facility] [address] [phone] Aug, Hyperparathyroidism E21.3 [facility] [address] [place] [id number] [address] [place] [phone] Aug, Hyperparathyroidism E21.3 [facility] [address] [place] [id number] [place] [phone] Aug, Arthritis M19.90 [facility] [address] [id number] Jul, Mass of throat R22.1 [facility] [address] [place] [id number] [address] [place] [phone] Jul, [facility] [address] [phone] Jul, Arthritis M19.90 [facility] [address] [facility] [id number] [address] [place] [phone] Jun, Arthritis M19.90 [facility] [address] [facility] [id number] [address] [place] [phone] Jun, [facility] [address] [facility] [id number] [address] [place] [phone] Jun, Renal insufficiency N28.9 an d Parathyroid abnormality E21.5 [facility] [address] [facility] [id number] [address] [place] [phone] 05 Jun, 2016 Medicare welcome exam Z00.00 ; Encounter for immunization Z23 ; Arthritis M19.90 ; Medicare annual wellness visit, initial Z00.00 ; Medicare annual wellness visit, subsequent Z00.00 and Deficiency of other specified B group vitamins E53.8 [facility] [address] [facility] [id number] [address] [place] [phone] 29 May, 2016 Renal insufficiency N28.9 an d Parathyroid abnormality E21.5 [facility] [address] [facility] [id number] [address] [place] [phone] 19 May, 2016 Renal insufficiency N28.9 [facility] [address] [facility] [id number] [address] [place] [phone] 16 May, 2016 Renal insufficiency N28.9 [facility] [address] [facility] [id number] [address] [place] [phone] 14 May, 2016 [facility] [address] [facility] [id number] [address] [place] [id number] Apr, [facility] [address] [facility] [id number] [address] [place] [phone] Apr, [facility] [address] [facility] [id number] [address] [place] [phone] 14 Apr, 2016 Mass of throat R22.1 [facility] [address] [facility] [id number] [address] [place] [phone] 10 Apr, 2016 [facility] [address] [id number] [address] [place] [phone] 10 Apr, 2016 Mass of throat R22.1 [facility] [address] [facility] [id number] [address] [place] [phone] 04 Apr, 2016 Mass of throat R22.1 [facility] [address] [facility] [id number] [address] [place] [phone] Mar, [facility] [address] [facility] [id number] [address] [place] [phone] Mar, [facility] [address] [facility] [id number] [address] [place] [phone] Mar, [facility] [address] [facility] [id number] [address] [place] [phone] 24 Mar, 2016 Parathyroid abnormality E21. 5 and Encounter for immunization Z23 [facility] [address] [facility] [id number] [address] [place] [phone] 17 Mar, 2016 [facility] [address] [facility] [id number] [address] [place] [phone] Mar, [facility] [address] [facility] [id number] [address] [place] [phone] 21 Feb, 2016 Renal insufficiency N28.9 an d Hyperparathyroidism E21.3 [facility] [address] [facility] [id number] [address] [place] [phone] 19 Feb, 2016 [facility] [address] [facility] [id number] [address] [place] [phone] 15 Feb, 2016 Renal insufficiency N28.9 an d Hyperparathyroidism E21.3 [facility] [address] [facility] [id number] [address] [place] [phone] 14 Feb, 2016 [facility] [address] [facility] [id number] [address] [place] [phone] 12 Feb, 2016 [facility] [address] [facility] [id number] [address] [place] [phone] Feb, [facility] [address] [facility] [id number] [address] [place] [phone] Jan, [facility] [address] [facility] [id number] [address] [place] [phone] Jan, Arthritis M19.90 ; Lumbago w ith sciatica, right side M54.41 and Other chronic pain G89.29 [facility] [address] [facility] [id number] [address] [place] [phone] Jan, [facility] [address] [facility] [id number] [address] [place] [id number] Dec, Arthritis M19.90 ; Lumbago w ith sciatica, right side M54.41 and Other chronic pain G89.29 [facility] [address] [facility] [id number] [address] [place] [id number] Nov, Deficiency of other specifie d B group vitamins E53.8 ; Primary insomnia F51.01 ; Mood disorder F39 and Lumbago with sciatica, right side M54.41 [facility] [address] [facility] [id number] [address] [place] [id number] Nov, Hyperparathyroidism E21.3 [place] [address] [facility] [id number] [address] [place] [id number] Nov, Unspecified kidney failure N 19 and Hyperparathyroidism E21.3 [facility] [address] [facility] [id number] [address] [place] [id number] October, Hyperparathyroidism E21.3 [facility] [address] [facility] [id number] [address] [place] [id number] October, [facility] [address] [place] [id number] [address] [place] [phone] October, Hyperparathyroidism E21.3 [facility] [address] [facility] [id number] [address] [place] [phone] October, Hyperparathyroidism E21.3 [facility] [address] [place] [id number] [address] [place] [phone] Sep, Hyperparathyroidism E21.3 ; Hypercholesterolemia E78.0 and Arthritis M19.90 [facility] [address] [place] [id number] [address] [place] [phone] Aug, [facility] [address] [facility] [id number] [address] [place] [phone] Aug, Deficiency of other specifie d B group vitamins E53.8 [facility] [address] [facility] [id number] [address] [place] [id number] Aug, [facility] [address] [place] [id number] [address] [place] [id number] Jul, Urinary frequency R35.0 [facility] [address] [place] [id number] [address] [place] [phone] Jul, Urinary frequency R35.0 [facility] [address] [id number] Jul, [facility] [id number] [place] [id number] Jul, [facility] [address] [id number] Jun, Pain in left knee M25.562 [facility] [address] [place] [id number] [address] [place] [id number] Jun, [facility] [address] [place] [id number] [address] [place] [id number] May, Swelling of left knee joint M25.462 [facility] [address] [place] [id number] [address] [place] [phone] May, [facility] [address] [place] [id number] [address] [place] [id number] May, [facility] [address] [place] [id number] [address] [place] [id number] May, [facility] [address] [facility] [id number] [address] [place] [phone] Apr, Renal insufficiency N28.9 an d Chronic kidney disease, stage 4 (severe) N18.4 [facility] [address] [facility] [id number] [address] [place] [phone] Apr, Unspecified kidney failure N 19 [facility] [address] [facility] [id number] [address] [place] [id number] Apr, Unspecified kidney failure N 19 [facility] [address] [facility] [id number] [address] [place] [id number] Apr, [facility] [address] [place] [id number] [address] [place] [id number] Apr, Hyperparathyroidism, unspeci fied 252.00 [facility] [address] [place] [id number] [address] [place] [id number] Apr, [facility] [address] [place] [id number] [address] [place] [phone] Mar, [facility] [address] [facility] [id number] [address] [place] [id number] Mar, [facility] [address] [place] [id number] [address] [place] [phone] Mar, Hyperparathyroidism, unspeci fied 252.00 [facility] [address] [facility] [id number] [address] [place] [phone] Feb, [facility] [address] [facility] [id number] [address] [place] [id number] Feb, Otalgia 388.70 [facility] [address] [place] [id number] [address] [place] [phone] Feb, [facility] [address] [place] [id number] [address] [place] [phone] Feb, [facility] [address] [place] [id number] [address] [place] [id number] Jan, [facility] [address] [id number] [address] [place] [id number] Jan, Hyperparathyroidism, unspeci fied 252.00 [facility] [address] [id number] [address] [place] [id number] Jan, [facility] [address] [id number] [address] [place] [phone] Jan, Other B-complex deficiencies 266.2 and Hyperparathyroidism, unspecified 252.00 [facility] [address] [id number] [address] [place] [phone] Jan, [facility] [address] [id number] [address] [place] [phone] Jan, [facility] [address] [id number] [address] [place] [phone] Jan, [facility] [address] [id number] [address] [place] [id number] Dec, [facility] [address] [id number] [address] [place] [phone] Dec, [facility] [address] [id number] [address] [place] [phone] Dec, [facility] [address] [id number] [address] [place] [phone] Nov, Routine check-up V70.0 and P re-op exam V72.84 [facility] [address] [id number] [address] [place] [phone] Nov, [facility] [address] [id number] [address] [place] [phone] Nov, [facility] [address] [id number] [address] [place] [phone] October, [facility] [address] [id number] [address] [place] [phone] October, Other B-complex deficiencies 266.2 [facility] [place] [facility] [address] [id number] [address] [place] [address], [place] [id number] 12 Oct, 2014 [facility] [place] [facility] [address] [id number] [address] [place] [address], [place] [id number] 14 Sep, 2014 [facility] [place] [facility] [address] [id number] [address] [place] [address], [place] [id number] 13 Sep, 2014 [facility] [place] [facility] [address] [id number] [address] [place] [address], [place] [id number] 20 Aug, 2014 [facility] [place] [facility] [address] [id number] [address] [place] [address], [place] [id number] 20 Aug, 2014 [facility] [place] [facility] [address] [id number] [address] [place] [address], [place] [id number] 17 Aug, 2014 [facility] [place] [facility] [address] [id number] [address] [place] [address], [place] [id number] 17 Aug, 2014 [facility] [place] [facility] [address] [id number] [address] [place] [address], [place] [id number] 11 Aug, 2014 [facility] [place] [facility] [address] [id number] [address] [place] [address], [place] [id number] Aug, [facility] [place] [facility] [address] [id number] [address] [place] [address], [place] [id number] 18 Jul, 2014 [facility] [place] [facility] [address] [id number] [address] [place] [address], [place] [id number] 18 Jul, 2014 [facility] [place] [facility] [address] [id number] [address] [place] [phone] 17 Jul, 2014 [facility] [place] [facility] [address] [id number] [address] [place] [address], [place] [id number] 17 Jul, 2014 [facility] [place] [facility] [address] [id number] [address] [place] [address], [place] [id number] 12 Jul, 2014 [facility] [place] [facility] [address] [id number] [address] [place] [address], [place] [id number] 12 Jul, 2014 [facility] [place] [facility] [address] [id number] [address] [place] [phone] Jul, 2014 [facility] [address] [id number] [address] [place] [address], [place] [address] Jul, 2014 [facility] [address] [id number] [address] [place] [address], [place] [id number] Jul, 2014 [facility] [address] [id number] [address] [place] [address], [place] [id number] Jul, 2014 [facility] [address] [id number] [address] [place] [address], [place] [id number] Jul, 2014 [facility] [address] [id number] [address] [place] [address], [place] [id number] Jul, 2014 [facility] [address] [id number] [address] [place] [address], [place] [id number] Jul, 2014 [facility] [address] [id number] [address] [place] [address], [place] [id number] Jul, [facility] [address] [id number] [address] [place] [address], [place] [address] Jun, [facility] [address] [id number] [address] [place] [address], [place] [id number] Jun, [facility] [address] [id number] [address] [place] [phone] Jun, [facility] [place] [facility] [address] [id number] [address] [place] [address], [place] [address] Jun, [facility] [address] [id number] [address] [place] [id number] Jun, [facility] [place] [facility] [address] [id number] [address] [place] [address], [place] [id number] Jun, [facility] [address] [id number] [address] [place] [address], [place] [address] Jun, [facility] [address] [id number] [address] [place] [address], [place] [address] Jun, [facility] [address] [id number] [address] [place] [address], [place] [address] Jun, [facility] [address] [id number] [address] [place] [address], [place] [address] Jun, [facility] [address] [id number] [address] [place] [address], [place] [address] Jun, [facility] [address] [id number] [address] [place] [address], [place] [address] Jun, [facility] [address] [id number] [address] [place] [address], [place] [address] Jun, [facility] [address] [id number] [address] [place] [address], [place] [id number] Jun, [facility] [address] [id number] [address] [place] [address], [place] [address] May, [facility] [address] [id number] [address] [place] [address], [place] [address] May, [facility] [address] [id number] [address] [place] [address], [place] [address] May, [facility] [address] [id number] [address] [place] [address], [place] [address] May, [facility] [address] [id number] [address] [place] [address], [place] [address] Apr, [facility] [address] [id number] [address] [place] [address], [place] [address] Apr, [facility] [place] [facility] [address] [id number] [address] [place] [address], [place] [address] Apr, [facility] [place] [facility] [address] [id number] [address] [place] [address], [place] [address] Apr, [facility] [place] [facility] [address] [id number] [address] [place] [address], [place] [address] Apr, [facility] [place] [facility] [address] [id number] [address] [place] [id number] Apr, [facility] [place] [facility] [address] [id number] [address] [place] [address], [place] [address] Mar, [facility] [place] [facility] [address] [id number] [address] [place] [id number] Mar, [facility] [place] [facility] [address] [id number] [address] [place] [address], [place] [address] Mar, [facility] [place] [facility] [address] [id number] [address] [place] [address], [place] [address] Mar, [facility] [address] [id number] [address] [place] [address], [place] [address] Mar, [facility] [place] [facility] [address] [id number] [address] [place] [address], [place] [address] Mar, [facility] [address] [id number] [address] [place] [id number] Mar, [facility] [place] [facility] [address] [id number] [address] [place] [address], [place] [address] Mar, [facility] [place] [facility] [address] [id number] [address] [place] [address], [place] [address] Mar, [facility] [place] [facility] [address] [id number] [address] [place] [id number] Mar, [facility] [place] [facility] [address] [id number] [address] [place] [id number] Mar, 2013 [facility] [place] [facility] [address] [id number] [address] [place] [id number] 07 Mar, 2013 [facility] [place] [facility] [address] [id number] [address] [place] [id number] Mar, [facility] [place] [facility] [address] [id number] [address] [place] [phone] Feb, 2013 [facility] [place] [facility] [address] [id number] [address] [place] [phone] Feb, 2013 [facility] [place] [facility] [address] [id number] [address] [address] 23 Feb, 2013 [facility] [place] [facility] [address] [id number] [address] [address] 23 Feb, 2013 [facility] [place] [facility] [address] [id number] [address] [address] 19 Feb, 2013 [facility] [place] [facility] [address] [id number] [address] [address] 19 Feb, 2013 [facility] [place] [facility] [address] [id number] [address] [address] 13 Feb, 2013 [facility] [place] [facility] [address] [id number] [address] [place] [address], [place] [address] 13 Feb, 2013 [facility] [place] [facility] [address] [id number] [address] [place] [address], [place] [address] Feb, [facility] [place] [facility] [address] [id number] [address] [place] [address], [place] [address] Feb, [facility] [address] [id number] [address] [place] [address], [place] [address] Jan, [facility] [place] [facility] [address] [id number] [address] [place] [address], [place] [address] Jan, [facility] [place] [facility] [address] [id number] [address] [place] [address], [place] [address] Dec, [facility] [place] [facility] [address] [id number] [address] [place] [address], [place] [address] Dec, [facility] [place] [facility] [address] [id number] [address] [place] [address], [place] [address] Dec, [facility] [place] [facility] [address] [id number] [address] [place] [address], [place] [address] Dec, [facility] [place] [facility] [address] [id number] [address] [place] [address], [place] [address] Dec, [facility] [place] [facility] [address] [id number] [address] [place] [address], [place] [address] Dec, [facility] [address] [id number] [address] [address] Nov, [facility] [address] [id number] [address] [address] Nov, [facility] [address] [id number] [address] [address] Nov, [facility] [address] [id number] [address] [place] [address], [place] [address] Nov, [facility] [address] [id number] [address] [address] October, [facility] [address] [id number] [address] [place] [address], [place] [address] October, [facility] [address] [id number] [address] [place] [address], [place] [address] October, [facility] [address] [id number] [address] [place] [address], [place] [address] October, [facility] [address] [id number] [address] [place] [address], [place] [address] October, [facility] [address] [id number] [address] [place] [address], [place] [address] October, [facility] [address] [id number] [address] [place] [address], [place] [address] October, [facility] [place] [facility] [address] [id number] [address] [place] [address], [place] [address] October, [facility] [place] [facility] [address] [id number] [address] [place] [address], [place] [address] October, [facility] [place] [facility] [address] [id number] [address] [place] [address], [place] [address] October, [facility] [place] [facility] [address] [id number] [address] [place] [address], [place] [address] October, [facility] [address] [id number] [address] [address] October, [facility] [address] [id number] [address] [place] [address], [place] [address] October, [facility] [address] [id number] [address] [place] [address], [place] [address] October, [facility] [address] [id number] [address] [place] [address], [place] [address] October, [facility] [address] [id number] [address] [place] [address], [place] [address] October, [facility] [address] [id number] [address] [place] [address], [place] [address] Sep, [facility] [address] [id number] [address] [place] [address], [place] [address] Sep, [facility] [address] [id number] [address] [place] [address], [place] [address] Sep, [facility] [address] [id number] [address] [place] [address], [place] [address] Sep, [facility] [address] [id number] [address] [place] [address], [place] [address] Sep, [facility] [address] [id number] [address] [place] [address], [place] [address] Sep, [facility] [address] [id number] [address] [place] [address], [place] [address] Aug, [facility] [address] [id number] [address] [place] [address], [place] [address] Aug, [facility] [place] [facility] [address] [id number] [address] [place] [address], [place] [address] Aug, [facility] [address] [id number] [address] [place] [address], [place] [address] Aug, [facility] [address] [id number] [address] [place] [address], [place] [id number] Aug, [facility] [address] [id number] [address] [place] [address], [place] [id number] Aug, [facility] [address] [id number] [address] [place] [address], [place] [id number] Jul, [facility] [address] [id number] [address] [place] [address], [place] [id number] Jul, [facility] [address] [id number] [address] [place] [address], [place] [id number] Jul, [facility] [address] [id number] [address] [place] [address], [place] [id number] Jul, [facility] [address] [id number] [address] [place] [address], [place] [id number] Jun, [facility] [address] [id number] [address] [place] [address], [place] [id number] Jun, [facility] [address] [id number] [address] [place] [address], [place] [id number] May, [facility] [address] [id number] [address] [place] [address], [place] [id number] May, [facility] [address] [id number] [address] [place] [address], [place] [id number] May, [facility] [address] [id number] [address] [place] [address], [place] [id number] May, [facility] [address] [id number] [address] [place] [id number] May, [facility] [address] [id number] [address] [place] [address], [place] [id number] Apr, [facility] [address] [id number] [address] [place] [address], [place] [address] Apr, [facility] [address] [id number] [address] [place] [address], [place] [id number] Apr, [facility] [address] [id number] [address] [place] [id number] Apr, [facility] [address] [id number] [address] [place] [address], [place] [id number] Apr, [facility] [address] [id number] [address] [place] [id number] 04 Apr, 2013 [facility] [address] [id number] [address] [place] [address], [place] [id number] 15 Mar, 2013 [facility] [address] [id number] [address] [place] [address], [place] [id number] 15 Mar, 2013 [facility] [address] [id number] [address] [place] [address], [place] [id number] 14 Mar, 2013 [facility] [address] [id number] [address] [place] [address], [place] [id number] 14 Mar, 2013 [facility] [address] [id number] [address] [place] [id number] Mar, [facility] [address] [id number] [address] [place] [address], [place] [id number] Mar, [facility] [address] [id number] [address] [place] [address], [place] [id number] 23 Feb, 2013 [facility] [address] [id number] [address] [place] [address], [place] [id number] 19 Feb, 2013 [facility] [address] [id number] [address] [place] [address], [place] [id number] 04 Feb, 2013 [facility] [address] [id number] [address] [place] [id number] 30 Jan, 2013 [facility] [address] [id number] [address] [place] [address], [place] [id number] Jan, [facility] [address] [id number] [address] [place] [address], [place] [id number] Jan, [facility] [address] [id number] [address] [place] [address], [place] [id number] 16 Jan, 2013 [facility] [address] [id number] [address] [place] [address], [place] [id number] Jan, [facility] [address] [id number] [address] [place] [address], [place] [id number] Jan, [facility] [address] [id number] [address] [place] [address], [place] [id number] Dec, [facility] [address] [id number] [address] [place] [address], [place] [id number] Dec, [facility] [address] [id number] [address] [place] [address], [place] [id number] Dec, [facility] [address] [id number] [address] [place] [address], [place] [id number] Dec, [facility] [address] [id number] [address] [place] [address], [place] [id number] Dec, [facility] [address] [id number] [address] [place] [address], [place] [id number] Dec, [facility] [address] [id number] [address] [place] [address], [place] [id number] Nov, [facility] [address] [id number] [address] [place] [address], [place] [id number] Nov, [facility] [address] [id number] [address] [place] [address], [place] [id number] Nov, [facility] [address] [id number] [address] [place] [address], [place] [id number] Nov, [facility] [address] [id number] [address] [place] [address], [place] [id number] Nov, [facility] [address] [id number] [address] [place] [address], [place] [id number] Nov, [facility] [address] [id number] [address] [place] [address], [place] [id number] October, [facility] [address] [id number] [address] [place] [address], [place] [id number] October, [facility] [address] [id number] [address] [place] [address], [place] [id number] October, [facility] [address] [id number] [address] [place] [address], [place] [id number] October, [facility] [address] [id number] [address] [place] [address], [place] [id number] October, [facility] [address] [id number] [address] [place] [address], [place] [id number] Sep, [facility] [address] [id number] [address] [place] [address], [place] [id number] Sep, [facility] [address] [id number] [address] [place] [address], [place] [id number] Sep, [facility] [address] [id number] [address] [place] [address], [place] [id number] Sep, [facility] [address] [id number] [address] [place] [address], [place] [id number] Sep, [facility] [address] [id number] [address] [place] [address], [place] [id number] Aug, [facility] [address] [id number] [address] [place] [address], [place] [id number] Aug, [facility] [address] [id number] [address] [place] [address], [place] [id number] Aug, [facility] [address] [id number] [address] [place] [address], [place] [id number] Jul, [facility] [address] [id number] [address] [place] [address], [place] [id number] Jul, [facility] [address] [id number] [address] [place] [address], [place] [id number] Jul, [facility] [address] [id number] [address] [place] [address], [place] [id number] 08 Jul, 2012 [facility] [address] [id number] [address] [place] [address], [place] [id number] Jul, [facility] [address] [id number] [address] [place] [address], [place] [id number] Jul, [facility] [address] [id number] [address] [place] [address], [place] [id number] Jun, [facility] [address] [id number] [address] [place] [address], [place] [id number] Apr, [facility] [address] [id number] [address] [place] [address], [place] [id number] Apr, [facility] [address] [id number] [address] [place] [address], [place] [id number] Apr, [facility] [address] [id number] [address] [place] [address], [place] [id number] Apr, [facility] [address] [id number] [address] [place] [address], [place] [id number] Mar, [facility] [address] [id number] [address] [place] [address], [place] [id number] Mar, [facility] [address] [id number] [address] [place] [address], [place] [id number] Mar, [facility] [address] [id number] [address] [place] [address], [place] [id number] Mar, [facility] [address] [id number] [address] [place] [address], [place] [id number] Mar, [facility] [address] [id number] [address] [place] [address], [place] [id number] Feb, [facility] [address] [id number] [address] [place] [address], [place] [id number] Jan, [facility] [address] [id number] [address] [place] [address], [place] [id number] Jan, [facility] [address] [id number] [address] [place] [address], [place] [address] Jan, [facility] [address] [id number] [address] [place] [id number] Dec, [facility] [address] [id number] [address] [place] [id number] Nov, [facility] [address] [id number] [address] [place] [id number] Nov, [facility] [address] [id number] [address] [place] [id number] Nov, [facility] [address] [id number] [address] [place] [id number] Nov, [facility] [address] [id number] [address] [place] [id number] Nov, [facility] [address] [id number] [address] [place] [id number] October, [facility] [address] [id number] [address] [place] [id number] October, [facility] [address] [id number] [address] [place] [id number] October, [facility] [address] [id number] [address] [place] [id number] October, [facility] [address] [id number] [address] [place] [id number] October, IMMUNIZATIONS No Known Immunizations SOCIAL HISTORY [...]
--- OUTSIDE RECORDS SUMMARY | 2020-01-25 08:19 | XMS REPORT ---
Author Author Velma CORDERO Organization [facility] Address [address] [place] [address] Care Team Providers Care Body Component Engineer Name Role Phone STEPHAN CORDERO Unavailable PROBLEMS Type Condition ICD9-CM Code [id number] Code Onset Dates Condition S tatus SNOMED Code Problem Corns L84 Active 006806587 Problem Primary insomnia F51.01 Active 397 2004 Problem Hyperparathyroidism E21.3 Active 37407146 Problem Hypercholesteremia E78.0 Active 1 4882398 Problem Mood disorder F39 Active 861332 05 Problem Arthritis M19.90 Active 9771533 Problem 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 Active 29503977 Problem Myalgia M79.1 Active 75821965 Problem Chronic kidney disease, stage 4 (severe) N18.4 Active 953975615 Problem Primary osteoarthritis of left knee M17.12 Active [id number] Problem Irritable bowel syndrome with both constipation and diarrh ea K58.2 Active 70531603 Problem Other chronic pain G89.29 Active 8 5841614 Problem BPV (benign positional vertigo), bilateral H81.13 Active 730958305 Problem Hyperparathyroidism, unspecified E21.3 Active 94523100 Problem 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 Active 09224454 Problem Body mass index (BMI) of 40.0-44.9 in adult Z68.41 Active 493729420 Problem Unspecified kidney failure N19 Act chip 38789028 Problem 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 Active 785578099 Problem Unspecified inflammatory spo ndylopathy, sacral and sacrococcygeal region M46.98 Active 80734719 ALLERGIES No Information ENCOUNTERS Encounter Location Date Diagnosis [facility] [address] [facility] [id number] [address] [place] [phone] October, Hyperparathyroidism, unspeci fied E21.3 [facility] [address] [facility] [id number] [address] [place] [id number] Sep, Hyperparathyroidism, unspeci fied E21.3 [facility] [address] [id number] [address] [place] [id number] Aug, Hyperparathyroidism, unspeci fied E21.3 [facility] [address] [id number] [address] [place] [id number] 05 Aug, 2019 Pain in left knee M25.562 ; Other chronic pain G89.29 ; Unspecified inflammatory spondylopathy, sacral and sacrococcygeal region M46.98 ; Chronic kidney disease, stage 4 (severe) N18.4 and Hyperparathyroidism, unspecified E21.3 [place] [address] [id number] [address] [place] [phone] Jul, [place] [address] [id number] [address] [place] [phone] Jul, Arthritis M19.90 [place] [address] [id number] [address] [place] [phone] Jun, Knee pain, left M25.562 [place] [address] [id number] [address] [place] [phone] May, Arthritis M19.90 [place] [address] [facility] [id number] [address] [place] [phone] Apr, Well woman exam without gyne cological exam Z00.00 and Screening for breast cancer Z12.39 [place] [address] [id number] [address] [place] [phone] Mar, Arthritis M19.90 [place] [address] [id number] [address] [place] [phone] Mar, Arthritis M19.90 [facility] [address] [id number] [address] [place] [phone] Mar, [facility] [address] [facility] [id number] [address] [place] [phone] Mar, Arthritis M19.90 and Encount er for immunization Z23 [facility] [address] [facility] [id number] [address] [place] [phone] 30 Feb, 2019 Arthritis M19.90 [facility] [address] [id number] [address] [place] [phone] 13 Feb, 2019 [facility] [address] [facility] [id number] [address] [place] [phone] Feb, Other specified disorders of bone density and structure, unspecified site M85.80 [facility] [address] [id number] [address] [place] [id number] Jan, Arthritis M19.90 [facility] [address] [facility] [id number] [address] [place] [phone] Dec, Arthritis M19.90 [facility] [address] [facility] [id number] [address] [place] [phone] Nov, Inflammatory spondylopathy o f sacral region M46.98 [facility] [address] [facility] [id number] [address] [place] [phone] Nov, [facility] [address] [facility] [id number] [address] [place] [phone] Nov, Labyrinthitis of left ear H8 3.02 [facility] [address] [facility] [id number] [address] [place] [phone] 03 Nov, 2018 Arthritis M19.90 [facility] [address] [facility] [id number] [address] [place] [id number] 15 Sep, 2018 Arthritis M19.90 [facility] [address] [facility] [id number] [address] [place] [phone] Sep, Renal insufficiency N28.9 an d Unspecified kidney failure N19 [facility] [address] [facility] [id number] [address] [place] [id number] Sep, Renal insufficiency N28.9 an d Unspecified kidney failure N19 [facility] [address] [facility] [id number] [address] [place] [phone] Sep, Arthritis M19.90 [facility] [address] [id number] [address] [place] [phone] Aug, Exercise counseling Z71.82 [facility] [address] [id number] [address] [place] [phone] Aug, [facility] [address] [id number] [address] [place] [phone] 27 Jul, 2018 Labyrinthitis of left ear H8 3.02 [facility] [address] [id number] [address] [place] [phone] 22 Jul, 2018 Labyrinthitis of left ear H8 3.02 [facility] [address] [facility] [id number] [address] [place] [id number] 19 Jul, 2018 Exercise counseling Z71.82 [facility] [address] [facility] [id number] [address] [place] [phone] 18 Jul, 2018 [facility] [address] [facility] [id number] [address] [place] [phone] 14 Jul, 2018 Arthritis M19.90 [facility] [address] [facility] [id number] [address] [place] [phone] 13 Jul, 2018 Encounter for Medicare annua l wellness exam Z00.00 ; Chronic kidney disease, stage 4 (severe) N18.4 ; Body mass index (BMI) of 40.0-44.9 in adult Z68.41 ; Hyperparathyroidism E21.3 and BMI 40.0-44.9, adult Z68.41 [facility] [address] [facility] [id number] [address] [place] [phone] 13 Jul, 2018 Encounter for Medicare annua l wellness exam Z00.00 ; Chronic kidney disease, stage 4 (severe) N18.4 ; Hyperparathyroidism E21.3 ; Body mass index (BMI) of 40.0-44.9 in adult Z68.41 and Encounter for immunization Z23 [facility] [address] [facility] [id number] [address] [place] [phone] Jul, Tail bone pain M53.3 [facility] [address] [id number] [address] [place] [id number] Jun, Exercise counseling Z71.82 [facility] [address] [id number] [address] [place] [phone] Jun, Labyrinthitis of left ear H8 3.02 [facility] [address] [id number] [address] [place] [id number] Jun, Tail bone pain M53.3 ; Irrit able bowel syndrome with both constipation and diarrhea K58.2 and Dysfunction of left eustachian tube H69.82 [facility] [address] [id number] [address] [place] [phone] Jun, Exercise counseling Z71.82 [place] [address] [id number] [address] [place] [phone] Jun, Arthritis M19.90 [facility] [address] [id number] [address] [place] [phone] Jun, Irritable bowel syndrome wit h both constipation and diarrhea K58.2 ; Tail bone pain M53.3 and Dysfunction of left eustachian tube H69.82 [facility] [address] [id number] [address] [place] [phone] Jun, Exercise counseling Z71.82 [facility] [address] [id number] [address] [place] [phone] Jun, Exercise counseling Z71.82 [facility] [address] [id number] [address] [place] [id number] Jun, Labyrinthitis of left ear H8 3.02 [facility] [address] [id number] [address] [place] [phone] May, Exercise counseling Z71.82 [facility] [address] [id number] [address] [place] [id number] May, Arthritis M19.90 [facility] [address] [id number] [address] [place] [phone] May, Exercise counseling Z71.82 [facility] [address] [id number] [address] [place] [phone] May, Exercise counseling Z71.82 [facility] [address] [id number] [address] [place] [phone] May, Labyrinthitis of left ear H8 3.02 [facility] [address] [id number] [address] [place] [phone] May, Exercise counseling Z71.82 [facility] [address] [id number] [address] [place] [address] Apr, Arthritis M19.90 [facility] [address] [id number] [address] [place] [id number] Apr, Exercise counseling Z71.82 [facility] [address] [id number] [address] [place] [address] Apr, Exercise counseling Z71.82 [facility] [address] [id number] [address] [place] [phone] Apr, Primary osteoarthritis of le ft knee M17.12 [facility] [address] [id number] [address] [place] [id number] Apr, Labyrinthitis of left ear H8 3.02 [facility] [address] [id number] [address] [place] [phone] Mar, Arthritis M19.90 [facility] [address] [id number] [address] [place] [phone] Mar, [facility] [address] [id number] [address] [place] [phone] Mar, Chronic kidney disease, stag e 4 (severe) N18.4 [facility] [address] [id number] [address] [place] [id number] Mar, Chronic kidney disease, stag e 4 (severe) N18.4 [facility] [address] [facility] [id number] [address] [place] [phone] Mar, Labyrinthitis of left ear H8 3.02 [facility] [address] [place] [id number] [address] [place] [phone] Mar, Chronic kidney disease, stag e 4 (severe) N18.4 ; Knee pain, left anterior M25.562 ; Deficiency of other specified B group vitamins E53.8 and Encounter for immunization Z23 [place] [address] [facility] [id number] [address] [place] [id number] Mar, Arthritis M19.90 [facility] [address] [facility] [id number] [address] [place] [phone] Feb, Labyrinthitis of left ear H8 3.02 [facility] [address] [place] [id number] [address] [place] [id number] Feb, Arthritis M19.90 [facility] [address] [facility] [id number] [address] [place] [phone] Jan, Labyrinthitis of left ear H8 3.02 [facility] [address] [place] [id number] [address] [place] [phone] Jan, Arthritis M19.90 [facility] [address] [facility] [id number] [address] [place] [phone] Dec, Labyrinthitis of left ear H8 3.02 [facility] [address] [facility] [id number] [address] [place] [phone] Nov, Arthritis M19.90 [facility] [address] [facility] [id number] [address] [place] [phone] Nov, Labyrinthitis of left ear H8 3.02 [facility] [address] [place] [id number] [address] [place] [phone] Nov, BMI 40.0-44.9, adult Z68.41 ; Chronic kidney disease, stage 4 (severe) N18.4 and Acute right-sided thoracic back pain M54.6 [facility] [address] [facility] [id number] [address] [place] [phone] October, Labyrinthitis of left ear H8 3.02 and Arthritis M19.90 [facility] [address] [place] [id number] [place] [phone] Sep, BPV (benign positional verti go), bilateral H81.13 ; Dysfunction of left eustachian tube H69.82 and BMI 40.0-44.9, adult Z68.41 [place] [address] [place] [id number] [address] [place] [phone] Sep, Labyrinthitis of left ear H8 3.02 and Arthritis M19.90 [facility] [address] [place] [id number] [address] [place] [phone] Sep, [facility] [address] [place] [id number] [address] [place] [phone] Sep, [facility] [address] [place] [id number] [address] [place] [phone] Sep, Chronic kidney disease, stag e 4 (severe) N18.4 [facility] [address] [facility] [id number] [address] [place] [phone] Sep, Chronic kidney disease, stag e 4 (severe) N18.4 [facility] [address] [facility] [id number] [address] [place] [phone] Aug, Labyrinthitis of left ear H8 3.02 and Arthritis M19.90 [facility] [address] [facility] [id number] [address] [place] [phone] Aug, [facility] [address] [facility] [id number] [address] [place] [phone] Jul, [facility] [address] [place] [id number] [address] [place] [phone] Jul, Arthritis M19.90 and Labyrin thitis of left ear H83.02 [place] [address] [place] [id number] [address] [place] [phone] Jul, [place] [address] [place] [id number] [address] [place] [phone] Jun, [place] [address] [place] [id number] [place] [address] Jun, Arthritis M19.90 and Labyrin thitis of left ear H83.02 [place] [address] [place] [id number] [place] [address] Jun, Pre-op evaluation Z01.818 ; BMI 40.0-44.9, adult Z68.41 and Encounter for immunization Z23 [place] [address] [place] [id number] [address] [place] [phone] May, Arthritis M19.90 and Labyrin thitis of left ear H83.02 [place] [address] [place] [id number] [address] [place] [address] Apr, Labyrinthitis of left ear H8 3.02 [place] [address] [place] [id number] [address] [place] [phone] 07 Apr, 2017 Arthritis M19.90 and Labyrin thitis of left ear H83.02 [place] [address] [place] [id number] [address] [place] [phone] Mar, Arthritis M19.90 and Labyrin thitis of left ear H83.02 [place] [address] [place] [id number] [address] [place] [phone] 05 Mar, 2017 Chronic kidney disease, stag e 4 (severe) N18.4 [place] [address] [place] [id number] [address] [place] [phone] 06 Feb, 2017 Arthritis M19.90 and Labyrin thitis of left ear H83.02 [facility] [address] [id number] [address] [place] [phone] Jan, Labyrinthitis of left ear H8 3.02 and Deficiency of other specified B group vitamins E53.8 [facility] [address] [id number] [address] [place] [phone] Dec, Arthritis M19.90 [facility] [address] [id number] [address] [place] [phone] Dec, BPV (benign positional verti go), bilateral H81.13 [facility] [address] [facility] [id number] [address] [place] [phone] Dec, [facility] [address] [facility] [id number] [address] [place] [phone] Dec, [facility] [address] [facility] [id number] [address] [place] [phone] Dec, [facility] [address] [facility] [id number] [address] [place] [phone] Nov, Arthritis M19.90 and Deficie ncy of other specified B group vitamins E53.8 [facility] [address] [facility] [id number] [address] [place] [phone] Nov, Arthritis M19.90 [facility] [address] [facility] [id number] [address] [place] [phone] Nov, Hyperparathyroidism E21.3 [facility] [address] [facility] [id number] [address] [place] [phone] October, [facility] [address] [facility] [id number] [address] [place] [phone] October, Hyperparathyroidism E21.3 [facility] [address] [facility] [id number] [address] [place] [phone] October, [facility] [address] [facility] [id number] [address] [place] [address] October, Renal insufficiency N28.9 an d Hyperparathyroidism E21.3 [facility] [address] [facility] [id number] [address] [place] [phone] October, [facility] [address] [address] October, Renal insufficiency N28.9 an d Hyperparathyroidism E21.3 [facility] [address] [place] [id number] [address] [place] [phone] October, Arthritis M19.90 [facility] [address] [place] [id number] [address] [place] [phone] Sep, [facility] [address] [phone] Sep, Lumbar neuritis M54.16 ; Tho racic abscess J86.9 and Deficiency of other specified B group vitamins E53.8 [facility] [address] [place] [id number] [address] [place] [phone] Sep, [facility] [address] [place] [id number] [address] [place] [phone] Aug, Arthritis M19.90 [facility] [address] [id number] Aug, Hyperparathyroidism E21.3 [facility] [address] [place] [id number] [address] [place] [phone] Aug, Hyperparathyroidism E21.3 [facility] [address] [place] [id number] [place] [address] Aug, Arthritis M19.90 [facility] [address] [id number] Jul, Mass of throat R22.1 [facility] [address] [place] [id number] [address] [place] [phone] Jul, [facility] [address] [id number] Jul, Arthritis M19.90 [facility] [address] [facility] [id number] [address] [place] [phone] Jun, Arthritis M19.90 [facility] [address] [facility] [id number] [address] [place] [phone] Jun, [facility] [address] [facility] [id number] [address] [place] [phone] Jun, Renal insufficiency N28.9 an d Parathyroid abnormality E21.5 [facility] [address] [facility] [id number] [address] [place] [phone] 05 Jun, 2016 Medicare welcome exam Z00.00 ; Encounter for immunization Z23 ; Arthritis M19.90 ; Medicare annual wellness visit, initial Z00.00 ; Medicare annual wellness visit, subsequent Z00.00 and Deficiency of other specified B group vitamins E53.8 [facility] [address] [facility] [id number] [address] [place] [phone] 29 May, 2016 Renal insufficiency N28.9 an d Parathyroid abnormality E21.5 [facility] [address] [facility] [id number] [address] [place] [phone] 19 May, 2016 Renal insufficiency N28.9 [facility] [address] [facility] [id number] [address] [place] [phone] 16 May, 2016 Renal insufficiency N28.9 [facility] [address] [facility] [id number] [address] [place] [phone] 14 May, 2016 [facility] [address] [facility] [id number] [address] [place] [phone] Apr, [facility] [address] [facility] [id number] [address] [place] [phone] Apr, [facility] [address] [facility] [id number] [address] [place] [phone] 14 Apr, 2016 Mass of throat R22.1 [facility] [address] [facility] [id number] [address] [place] [phone] 10 Apr, 2016 [facility] [address] [id number] [address] [place] [phone] 10 Apr, 2016 Mass of throat R22.1 [facility] [address] [facility] [id number] [address] [place] [phone] 04 Apr, 2016 Mass of throat R22.1 [facility] [address] [facility] [id number] [address] [place] [phone] Mar, [facility] [address] [facility] [id number] [address] [place] [phone] Mar, [facility] [address] [facility] [id number] [address] [place] [phone] Mar, [facility] [address] [facility] [id number] [address] [place] [phone] 24 Mar, 2016 Parathyroid abnormality E21. 5 and Encounter for immunization Z23 [facility] [address] [facility] [id number] [address] [place] [phone] 17 Mar, 2016 [facility] [address] [facility] [id number] [address] [place] [phone] Mar, [facility] [address] [facility] [id number] [address] [place] [phone] 21 Feb, 2016 Renal insufficiency N28.9 an d Hyperparathyroidism E21.3 [facility] [address] [facility] [id number] [address] [place] [phone] 19 Feb, 2016 [facility] [address] [facility] [id number] [address] [place] [phone] 15 Feb, 2016 Renal insufficiency N28.9 an d Hyperparathyroidism E21.3 [facility] [address] [facility] [id number] [address] [place] [id number] 14 Feb, 2016 [facility] [address] [facility] [id number] [address] [place] [address] 12 Feb, 2016 [facility] [address] [facility] [id number] [address] [place] [id number] Feb, [facility] [address] [facility] [id number] [address] [place] [id number] Jan, [facility] [address] [facility] [id number] [address] [place] [address] Jan, Arthritis M19.90 ; Lumbago w ith sciatica, right side M54.41 and Other chronic pain G89.29 [facility] [address] [facility] [id number] [address] [place] [phone] Jan, [facility] [address] [facility] [id number] [address] [place] [address] Dec, Arthritis M19.90 ; Lumbago w ith sciatica, right side M54.41 and Other chronic pain G89.29 [facility] [address] [facility] [id number] [address] [place] [address] Nov, Deficiency of other specifie d B group vitamins E53.8 ; Primary insomnia F51.01 ; Mood disorder F39 and Lumbago with sciatica, right side M54.41 [facility] [address] [facility] [id number] [address] [place] [address] Nov, Hyperparathyroidism E21.3 [place] [address] [facility] [id number] [address] [place] [address] Nov, Unspecified kidney failure N 19 and Hyperparathyroidism E21.3 [facility] [address] [facility] [id number] [address] [place] [address] October, Hyperparathyroidism E21.3 [facility] [address] [facility] [id number] [address] [place] [address] October, [facility] [address] [place] [id number] [address] [place] [address] October, Hyperparathyroidism E21.3 [facility] [address] [facility] [id number] [address] [place] [address] October, Hyperparathyroidism E21.3 [facility] [address] [place] [id number] [address] [place] [address] Sep, Hyperparathyroidism E21.3 ; Hypercholesterolemia E78.0 and Arthritis M19.90 [facility] [address] [place] [id number] [address] [place] [address] Aug, [facility] [address] [facility] [id number] [address] [place] [address] Aug, Deficiency of other specifie d B group vitamins E53.8 [facility] [address] [facility] [id number] [address] [place] [address] Aug, [facility] [address] [place] [id number] [address] [place] [address] Jul, Urinary frequency R35.0 [facility] [address] [place] [id number] [address] [place] [address] Jul, Urinary frequency R35.0 [facility] [address] [address] Jul, [facility] [id number] [place] [address] Jul, [facility] [address] [address] Jun, Pain in left knee M25.562 [facility] [address] [place] [id number] [address] [place] [address] Jun, [facility] [address] [place] [id number] [address] [place] [address] May, Swelling of left knee joint M25.462 [facility] [address] [place] [id number] [address] [place] [address] May, [facility] [address] [place] [id number] [address] [place] [phone] May, [facility] [address] [place] [id number] [address] [place] [address] May, [facility] [address] [facility] [id number] [address] [place] [address] Apr, Renal insufficiency N28.9 an d Chronic kidney disease, stage 4 (severe) N18.4 [facility] [address] [facility] [id number] [address] [place] [address] Apr, Unspecified kidney failure N 19 [facility] [address] [facility] [id number] [address] [place] [address] Apr, Unspecified kidney failure N 19 [facility] [address] [facility] [id number] [address] [place] [address] Apr, [facility] [address] [place] [id number] [address] [place] [address] Apr, Hyperparathyroidism, unspeci fied 252.00 [facility] [address] [place] [id number] [address] [place] [address] Apr, [facility] [address] [place] [id number] [address] [place] [phone] Mar, [facility] [address] [facility] [id number] [address] [place] [phone] Mar, [facility] [address] [place] [id number] [address] [place] [address] Mar, Hyperparathyroidism, unspeci fied 252.00 [facility] [address] [facility] [id number] [address] [place] [id number] Feb, [facility] [address] [facility] [id number] [address] [place] [address] Feb, Otalgia 388.70 [facility] [address] [place] [id number] [address] [place] [phone] Feb, [facility] [address] [place] [id number] [address] [place] [address] Feb, [facility] [address] [place] [id number] [address] [place] [id number] Jan, [facility] [address] [id number] [address] [place] [address] Jan, Hyperparathyroidism, unspeci fied 252.00 [facility] [address] [id number] [address] [place] [address] Jan, [facility] [address] [id number] [address] [place] [address] Jan, Other B-complex deficiencies 266.2 and Hyperparathyroidism, unspecified 252.00 [facility] [address] [id number] [address] [place] [phone] Jan, [facility] [address] [id number] [address] [place] [address] Jan, [facility] [address] [id number] [address] [place] [address] Jan, [facility] [address] [id number] [address] [place] [address] Dec, [facility] [address] [id number] [address] [place] [address] Dec, [facility] [address] [id number] [address] [place] [address] Dec, [facility] [address] [id number] [address] [place] [address] Nov, Routine check-up V70.0 and P re-op exam V72.84 [facility] [address] [id number] [address] [place] [address] Nov, [facility] [address] [id number] [address] [place] [phone] Nov, [facility] [address] [id number] [address] [place] [phone] October, [facility] [address] [id number] [address] [place] [phone] October, Other B-complex deficiencies 266.2 [facility] [address] [id number] [address] [place] [address], [place] [address] 12 Oct, 2014 [facility] [address] [id number] [address] [place] [address], [place] [address] 14 Sep, 2014 [facility] [address] [id number] [address] [place] [address], [place] [address] 13 Sep, 2014 [facility] [address] [id number] [address] [place] [address], [place] [address] 20 Aug, 2014 [facility] [place] [facility] [address] [id number] [address] [place] [address], [place] [address] 20 Aug, 2014 [facility] [address] [id number] [address] [place] [address], [place] [address] 17 Aug, 2014 [facility] [address] [id number] [address] [place] [address], [place] [address] 17 Aug, 2014 [facility] [address] [id number] [address] [place] [address], [place] [address] 11 Aug, 2014 [facility] [address] [id number] [address] [place] [address], [place] [address] Aug, [facility] [address] [id number] [address] [place] [address], [place] [address] 18 Jul, 2014 [facility] [facility] [address] [id number] [address] [place] [address], [place] [address] 18 Jul, 2014 [facility] [facility] [address] [id number] [address] [place] [address] 17 Jul, 2014 [facility] [address] [id number] [address] [place] [address], [place] [address] 17 Jul, 2014 [facility] [address] [id number] [address] [place] [address], [place] [address] 12 Jul, 2014 [facility] [address] [id number] [address] [place] [address], [place] [address] 12 Jul, 2014 [facility] [place] [facility] [address] [id number] [address] [place] [phone] Jul, 2014 [facility] [address] [id number] [address] [place] [address], [place] [address] Jul, 2014 [facility] [address] [id number] [address] [place] [address], [place] [address] Jul, 2014 [facility] [address] [id number] [address] [place] [address], [place] [address] Jul, 2014 [facility] [address] [id number] [address] [place] [address], [place] [address] Jul, 2014 [facility] [address] [id number] [address] [place] [address], [place] [address] Jul, 2014 [facility] [address] [id number] [address] [place] [address], [place] [address] Jul, 2014 [facility] [address] [id number] [address] [place] [address], [place] [address] Jul, [facility] [address] [id number] [address] [place] [address], [place] [address] Jun, [facility] [address] [id number] [address] [place] [address], [place] [address] Jun, [facility] [address] [id number] [address] [place] [address] Jun, [facility] [place] [facility] [address] [id number] [address] [place] [address], [place] [address] Jun, [facility] [address] [id number] [address] [place] [phone] Jun, [facility] [place] [facility] [address] [id number] [address] [place] [address], [place] [address] Jun, [facility] [address] [id number] [address] [place] [address], [place] [address] Jun, [facility] [address] [id number] [address] [place] [address], [place] [address] Jun, [facility] [address] [id number] [address] [place] [address], [place] [address] Jun, [facility] [address] [id number] [address] [place] [address], [place] [address] Jun, [facility] [address] [id number] [address] [place] [address], [place] [address] Jun, [facility] [address] [id number] [address] [place] [address], [place] [address] Jun, [facility] [address] [id number] [address] [place] [address], [place] [address] Jun, [facility] [address] [id number] [address] [place] [address], [place] [address] Jun, [facility] [address] [id number] [address] [place] [address], [place] [address] May, [facility] [address] [id number] [address] [place] [address], [place] [address] May, [facility] [address] [id number] [address] [place] [address], [place] [address] May, [facility] [address] [id number] [address] [place] [address], [place] [address] May, [facility] [address] [id number] [address] [place] [address], [place] [address] Apr, [facility] [address] [id number] [address] [place] [address], [place] [address] Apr, [facility] [place] [facility] [address] [id number] [address] [place] [address], [place] [address] Apr, [facility] [place] [facility] [address] [id number] [address] [place] [address], [place] [address] Apr, [facility] [place] [facility] [address] [id number] [address] [place] [address], [place] [address] Apr, [facility] [place] [facility] [address] [id number] [address] [place] [address] Apr, [facility] [place] [facility] [address] [id number] [address] [place] [address], [place] [address] Mar, [facility] [place] [facility] [address] [id number] [address] [place] [address] Mar, [facility] [place] [facility] [address] [id number] [address] [place] [address], [place] [address] Mar, [facility] [place] [facility] [address] [id number] [address] [place] [address], [place] [address] Mar, [facility] [address] [id number] [address] [place] [address], [place] [address] Mar, [facility] [place] [facility] [address] [id number] [address] [place] [address], [place] [address] Mar, [facility] [address] [id number] [address] [place] [address] Mar, [facility] [place] [facility] [address] [id number] [address] [place] [address], [place] [address] Mar, [facility] [place] [facility] [address] [id number] [address] [place] [address], [place] [address] Mar, [facility] [place] [facility] [address] [id number] [address] [place] [address] Mar, [facility] [place] [facility] [address] [id number] [address] [place] [address] Mar, 2013 [facility] [place] [facility] [address] [id number] [address] [place] [address] 07 Mar, 2013 [facility] [place] [facility] [address] [id number] [address] [place] [address] Mar, [facility] [place] [facility] [address] [id number] [address] [place] [address] Feb, 2013 [facility] [place] [facility] [address] [id number] [address] [place] [address] Feb, 2013 [facility] [place] [facility] [address] [id number] [facility] [place] [address] 23 Feb, 2013 [facility] [place] [facility] [address] [id number] [facility] [place] [address] 23 Feb, 2013 [facility] [place] [facility] [address] [id number] [facility] [place] [address] 19 Feb, 2013 [facility] [place] [facility] [address] [id number] [facility] [place] [address] 19 Feb, 2013 [facility] [place] [facility] [address] [id number] [facility] [place] [address] 13 Feb, 2013 [facility] [place] [facility] [address] [id number] [address] [place] [address], [place] [address] 13 Feb, 2013 [facility] [place] [facility] [address] [id number] [address] [place] [address], [place] [address] Feb, [facility] [place] [facility] [address] [id number] [address] [place] [address], [place] [address] Feb, [facility] [address] [id number] [address] [place] [address], [place] [address] Jan, [facility] [place] [facility] [address] [id number] [address] [place] [address], [place] [address] Jan, [facility] [place] [facility] [address] [id number] [address] [place] [address], [place] [address] Dec, [facility] [place] [facility] [address] [id number] [address] [place] [address], [place] [address] Dec, [facility] [place] [facility] [address] [id number] [address] [place] [address], [place] [address] Dec, [facility] [place] [facility] [address] [id number] [address] [place] [address], [place] [address] Dec, [facility] [place] [facility] [address] [id number] [address] [place] [address], [place] [address] Dec, [facility] [place] [facility] [address] [id number] [address] [place] [address], [place] [address] Dec, [facility] [address] [id number] [facility] [place] [address] Nov, [facility] [address] [id number] [facility] [place] [address] Nov, [facility] [address] [id number] [facility] [place] [address] Nov, [facility] [address] [id number] [address] [place] [address], [place] [address] Nov, [facility] [address] [id number] [facility] [place] [address] October, [facility] [address] [id number] [address] [place] [address], [place] [address] October, [facility] [address] [id number] [address] [place] [address], [place] [address] October, [facility] [address] [id number] [address] [place] [address], [place] [address] October, [facility] [address] [id number] [address] [place] [address], [place] [address] October, [facility] [address] [id number] [address] [place] [address], [place] [address] October, [facility] [address] [id number] [address] [place] [address], [place] [address] October, [facility] [place] [facility] [address] [id number] [address] [place] [address], [place] [address] October, [facility] [place] [facility] [address] [id number] [address] [place] [address], [place] [address] October, [facility] [place] [facility] [address] [id number] [address] [place] [address], [place] [address] October, [facility] [place] [facility] [address] [id number] [address] [place] [address], [place] [address] October, [facility] [address] [id number] [address] [address] October, [facility] [address] [id number] [address] [place] [address], [place] [address] October, [facility] [address] [id number] [address] [place] [address], [place] [address] October, [facility] [address] [id number] [address] [place] [address], [place] [address] October, [facility] [address] [id number] [address] [place] [address], [place] [address] October, [facility] [address] [id number] [address] [place] [address], [place] [address] Sep, [facility] [address] [id number] [address] [place] [address], [place] [address] Sep, [facility] [address] [id number] [address] [place] [address], [place] [address] Sep, [facility] [address] [id number] [address] [place] [address], [place] [address] Sep, [facility] [address] [id number] [address] [place] [address], [place] [address] Sep, [facility] [address] [id number] [address] [place] [address], [place] [address] Sep, [facility] [address] [id number] [address] [place] [address], [place] [address] Aug, [facility] [address] [id number] [address] [place] [address], [place] [address] Aug, [facility] [address] [id number] [address] [place] [address], [place] [address] Aug, [facility] [address] [id number] [address] [place] [address], [place] [address] Aug, [facility] [address] [id number] [address] [place] [address], [place] [address] Aug, [facility] [address] [id number] [address] [place] [address], [place] [address] Aug, [facility] [address] [id number] [address] [place] [address], [place] [address] Jul, [facility] [address] [id number] [address] [place] [address], [place] [address] Jul, [facility] [address] [id number] [address] [place] [address], [place] [address] Jul, [facility] [address] [id number] [address] [place] [address], [place] [address] Jul, [facility] [address] [id number] [address] [place] [address], [place] [address] Jun, [facility] [address] [id number] [address] [place] [address], [place] [address] Jun, [facility] [address] [id number] [address] [place] [address], [place] [address] May, [facility] [address] [id number] [address] [place] [address], [place] [address] May, [facility] [address] [id number] [address] [place] [address], [place] [address] May, [facility] [address] [id number] [address] [place] [address], [place] [address] May, [facility] [address] [id number] [address] [place] [address] May, [facility] [address] [id number] [address] [place] [address], [place] [address] Apr, [facility] [address] [id number] [address] [place] [address], [place] [address] Apr, [facility] [address] [id number] [address] [place] [address], [place] [address] Apr, [facility] [address] [id number] [address] [place] [address] Apr, [facility] [address] [id number] [address] [place] [address], [place] [address] Apr, [facility] [address] [id number] [address] [place] [address] 04 Apr, 2013 [facility] [address] [id number] [address] [place] [address], [place] [address] 15 Mar, 2013 [facility] [address] [id number] [address] [place] [address], [place] [address] 15 Mar, 2013 [facility] [address] [id number] [address] [place] [address], [place] [address] 14 Mar, 2013 [facility] [address] [id number] [address] [place] [address], [place] [address] 14 Mar, 2013 [facility] [address] [id number] [address] [place] [address] Mar, [facility] [address] [id number] [address] [place] [address], [place] [address] Mar, [facility] [address] [id number] [address] [place] [address], [place] [address] 23 Feb, 2013 [facility] [address] [id number] [address] [place] [address], [place] [address] 19 Feb, 2013 [facility] [address] [id number] [address] [place] [address], [place] [address] 04 Feb, 2013 [facility] [address] [id number] [address] [place] [address] 30 Jan, 2013 [facility] [address] [id number] [address] [place] [address], [place] [address] Jan, [facility] [address] [id number] [address] [place] [address], [place] [address] Jan, [facility] [address] [id number] [address] [place] [address], [place] [address] 16 Jan, 2013 [facility] [address] [id number] [address] [place] [address], [place] [address] Jan, [facility] [address] [id number] [address] [place] [address], [place] [address] Jan, [facility] [address] [id number] [address] [place] [address], [place] [address] Dec, [facility] [address] [id number] [address] [place] [address], [place] [address] Dec, [facility] [address] [id number] [address] [place] [address], [place] [address] Dec, [facility] [address] [id number] [address] [place] [address], [place] [address] Dec, [facility] [address] [id number] [address] [place] [address], [place] [address] Dec, [facility] [address] [id number] [address] [place] [address], [place] [address] Dec, [facility] [address] [id number] [address] [place] [address], [place] [address] Nov, [facility] [address] [id number] [address] [place] [address], [place] [address] Nov, [facility] [address] [id number] [address] [place] [address], [place] [address] Nov, [facility] [address] [id number] [address] [place] [address], [place] [address] Nov, [facility] [address] [id number] [address] [place] [address], [place] [address] Nov, [facility] [address] [id number] [address] [place] [address], [place] [address] Nov, [facility] [address] [id number] [address] [place] [address], [place] [address] October, [facility] [address] [id number] [address] [place] [address], [place] [address] October, [facility] [address] [id number] [address] [place] [address], [place] [address] October, [facility] [address] [id number] [address] [place] [address], [place] [address] October, [facility] [address] [id number] [address] [place] [address], [place] [address] October, [facility] [address] [id number] [address] [place] [address], [place] [address] Sep, [facility] [address] [id number] [address] [place] [address], [place] [address] Sep, [facility] [address] [id number] [address] [place] [address], [place] [address] Sep, [facility] [address] [id number] [address] [place] [address], [place] [address] Sep, [facility] [address] [id number] [address] [place] [address], [place] [address] Sep, [facility] [address] [id number] [address] [place] [address], [place] [address] Aug, [facility] [address] [id number] [address] [place] [address], [place] [address] Aug, [facility] [address] [id number] [address] [place] [address], [place] [address] Aug, [facility] [address] [id number] [address] [place] [address], [place] [address] Jul, [facility] [address] [id number] [address] [place] [address], [place] [address] Jul, [facility] [address] [id number] [address] [place] [address], [place] [address] Jul, [facility] [address] [id number] [address] [place] [address], [place] [address] 08 Jul, 2012 [facility] [address] [id number] [address] [place] [address], [place] [address] Jul, [facility] [address] [id number] [address] [place] [address], [place] [address] Jul, [facility] [address] [id number] [address] [place] [address], [place] [address] Jun, [facility] [address] [id number] [address] [place] [address], [place] [address] Apr, [facility] [address] [id number] [address] [place] [address], [place] [address] Apr, [facility] [address] [id number] [address] [place] [address], [place] [address] Apr, [facility] [address] [id number] [address] [place] [address], [place] [address] Apr, [facility] [address] [id number] [address] [place] [address], [place] [address] Mar, [facility] [address] [id number] [address] [place] [address], [place] [address] Mar, [facility] [address] [id number] [address] [place] [address], [place] [address] Mar, [facility] [address] [id number] [address] [place] [address], [place] [address] Mar, [facility] [address] [id number] [address] [place] [address], [place] [address] Mar, [facility] [address] [id number] [address] [place] [address], [place] [address] Feb, [facility] [address] [id number] [address] [place] [address], [place] [address] Jan, [facility] [address] [id number] [address] [place] [address], [place] [address] Jan, [facility] [address] [id number] [address] [place] [address], [place] [address] Jan, [facility] [address] [id number] [address] [place] [address] Dec, [facility] [address] [id number] [address] [place] [address] Nov, [facility] [address] [id number] [address] [place] [address] Nov, [facility] [address] [id number] [address] [place] [address] Nov, [facility] [address] [id number] [address] [place] [address] Nov, [facility] [address] [id number] [address] [place] [address] Nov, [facility] [address] [id number] [address] [place] [address] October, [facility] [address] [id number] [address] [place] [address] October, [facility] [address] [id number] [address] [place] [address] October, [facility] [address] [id number] [address] [place] [address] October, [facility] [address] [id number] [address] [place] [id number] October, IMMUNIZATIONS No Known Immunizations SOCIAL HISTORY [...]
--- OUTSIDE RECORDS SUMMARY | 2020-01-25 08:19 | XMS REPORT ---
Author Author Velma CORDERO Organization [facility] Address [address] [place] [address] Care Team Providers Care Shoe Clerk Name Role Phone STEPHAN CORDERO Unavailable PROBLEMS Type Condition ICD9-CM Code [id number] Code Onset Dates Condition S tatus SNOMED Code Problem Corns L84 Active 852765426 Problem Primary insomnia F51.01 Active 397 2004 Problem Hyperparathyroidism E21.3 Active 74907660 Problem Hypercholesteremia E78.0 Active 1 2045289 Problem Mood disorder F39 Active 170039 05 Problem Arthritis M19.90 Active 2414891 Problem 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 Active 76990607 Problem Myalgia M79.1 Active 16897751 Problem Chronic kidney disease, stage 4 (severe) N18.4 Active 204963083 Problem Primary osteoarthritis of left knee M17.12 Active [id number] Problem Irritable bowel syndrome with both constipation and diarrh ea K58.2 Active 93782293 Problem Other chronic pain G89.29 Active 8 2606661 Problem BPV (benign positional vertigo), bilateral H81.13 Active 716999725 Problem Hyperparathyroidism, unspecified E21.3 Active 94953223 Problem 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 [id number] [address] [place] [phone] October, Hyperparathyroidism, unspeci fied E21.3 [facility] [address] [facility] [id number] [address] [place] [address] Sep, Hyperparathyroidism, unspeci fied E21.3 [facility] [address] [id number] [address] [place] [address] Aug, Hyperparathyroidism, unspeci fied E21.3 [facility] [address] [id number] [address] [place] [address] Aug, Pain in left knee M25.562 ; Other chronic pain G89.29 ; Unspecified inflammatory spondylopathy, sacral and sacrococcygeal region M46.98 ; Chronic kidney disease, stage 4 (severe) N18.4 and Hyperparathyroidism, unspecified E21.3 [place] [address] [id number] [address] [place] [phone] Jul, [place] [address] [facility] [id number] [address] [place] [address] Jul, Arthritis M19.90 [place] [address] [facility] [id number] [address] [place] [address] Jun, Knee pain, left M25.562 [place] [address] [facility] [id number] [address] [place] [address] May, Arthritis M19.90 [place] [address] [facility] [id number] [address] [place] [address] Apr, Well woman exam without gyne cological exam Z00.00 and Screening for breast cancer Z12.39 [place] [address] [facility] [id number] [address] [place] [address] Mar, Arthritis M19.90 [place] [address] [id number] [address] [place] [address] Mar, Arthritis M19.90 [place] [address] [facility] [id number] [address] [place] [address] Mar, [place] [address] [facility] [id number] [address] [place] [address] Mar, Arthritis M19.90 and Encount er for immunization Z23 [facility] [address] [id number] [address] [place] [phone] 30 Feb, 2019 Arthritis M19.90 [facility] [address] [facility] [id number] [address] [place] [phone] Feb, [facility] [address] [facility] [id number] [address] [place] [address] Feb, Other specified disorders of bone density and structure, unspecified site M85.80 [facility] [address] [id number] [address] [place] [address] Jan, Arthritis M19.90 [facility] [address] [facility] [id number] [address] [place] [address] Dec, Arthritis M19.90 [facility] [address] [facility] [id number] [address] [place] [address] Nov, Inflammatory spondylopathy o f sacral region M46.98 [facility] [address] [facility] [id number] [address] [place] [address] Nov, [facility] [address] [facility] [id number] [address] [place] [address] Nov, Labyrinthitis of left ear H8 3.02 [facility] [address] [facility] [id number] [address] [place] [address] 03 Nov, 2018 Arthritis M19.90 [facility] [address] [facility] [id number] [address] [place] [address] Sep, Arthritis M19.90 [facility] [address] [facility] [id number] [address] [place] [address] Sep, Renal insufficiency N28.9 an d Unspecified kidney failure N19 [facility] [address] [facility] [id number] [address] [place] [address] Sep, Renal insufficiency N28.9 an d Unspecified kidney failure N19 [facility] [address] [facility] [id number] [address] [place] [address] Sep, Arthritis M19.90 [facility] [address] [id number] [address] [place] [address] Aug, Exercise counseling Z71.82 [facility] [address] [id number] [address] [place] [address] Aug, [facility] [address] [id number] [address] [place] [address] 27 Jul, 2018 Labyrinthitis of left ear H8 3.02 [facility] [address] [id number] [address] [place] [address] 22 Jul, 2018 Labyrinthitis of left ear H8 3.02 [facility] [address] [id number] [address] [place] [address] 19 Jul, 2018 Exercise counseling Z71.82 [place] [address] [id number] [address] [place] [address] 18 Jul, 2018 [facility] [address] [id number] [address] [place] [address] 14 Jul, 2018 Arthritis M19.90 [place] [address] [id number] [address] [place] [address] 13 Jul, 2018 Encounter for Medicare annua l wellness exam Z00.00 ; Chronic kidney disease, stage 4 (severe) N18.4 ; Body mass index (BMI) of 40.0-44.9 in adult Z68.41 ; Hyperparathyroidism E21.3 and BMI 40.0-44.9, adult Z68.41 [facility] [address] [id number] [address] [place] [address] 13 Jul, 2018 Encounter for Medicare annua l wellness exam Z00.00 ; Chronic kidney disease, stage 4 (severe) N18.4 ; Hyperparathyroidism E21.3 ; Body mass index (BMI) of 40.0-44.9 in adult Z68.41 and Encounter for immunization Z23 [facility] [address] [id number] [address] [place] [address] Jul, Tail bone pain M53.3 [facility] [address] [id number] [address] [place] [address] Jun, Exercise counseling Z71.82 [facility] [address] [id number] [address] [place] [address] Jun, Labyrinthitis of left ear H8 3.02 [facility] [address] [id number] [address] [place] [address] Jun, Tail bone pain M53.3 ; Irrit able bowel syndrome with both constipation and diarrhea K58.2 and Dysfunction of left eustachian tube H69.82 [facility] [address] [id number] [address] [place] [address] Jun, Exercise counseling Z71.82 [place] [address] [id number] [address] [place] [address] Jun, Arthritis M19.90 [facility] [address] [id number] [address] [place] [address] Jun, Irritable bowel syndrome wit h both constipation and diarrhea K58.2 ; Tail bone pain M53.3 and Dysfunction of left eustachian tube H69.82 [facility] [address] [id number] [address] [place] [address] Jun, Exercise counseling Z71.82 [facility] [address] [id number] [address] [place] [address] Jun, Exercise counseling Z71.82 [facility] [address] [id number] [address] [place] [address] Jun, Labyrinthitis of left ear H8 3.02 [facility] [address] [id number] [address] [place] [address] May, Exercise counseling Z71.82 [facility] [address] [id number] [address] [place] [address] May, Arthritis M19.90 [facility] [address] [id number] [address] [place] [address] May, Exercise counseling Z71.82 [facility] [address] [id number] [address] [place] [address] May, Exercise counseling Z71.82 [facility] [address] [id number] [address] [place] [address] May, Labyrinthitis of left ear H8 3.02 [facility] [address] [id number] [address] [place] [address] May, Exercise counseling Z71.82 [facility] [address] [id number] [address] [place] [address] Apr, Arthritis M19.90 [facility] [address] [id number] [address] [place] [address] Apr, Exercise counseling Z71.82 [facility] [address] [id number] [address] [place] [address] Apr, Exercise counseling Z71.82 [facility] [address] [id number] [address] [place] [address] Apr, Primary osteoarthritis of le ft knee M17.12 [facility] [address] [id number] [address] [place] [address] 08 Apr, 2018 Labyrinthitis of left ear H8 3.02 [facility] [address] [id number] [address] [place] [address] 30 Mar, 2018 Arthritis M19.90 [facility] [address] [id number] [address] [place] [address] Mar, [facility] [address] [facility] [id number] [address] [place] [phone] 15 Mar, 2018 Chronic kidney disease, stag e 4 (severe) N18.4 [facility] [address] [id number] [address] [place] [address] Mar, Chronic kidney disease, stag e 4 (severe) N18.4 [facility] [address] [facility] [id number] [address] [place] [address] Mar, Labyrinthitis of left ear H8 3.02 [facility] [address] [facility] [id number] [address] [place] [address] Mar, Chronic kidney disease, stag e 4 (severe) N18.4 ; Knee pain, left anterior M25.562 ; Deficiency of other specified B group vitamins E53.8 and Encounter for immunization Z23 [place] [address] [facility] [id number] [address] [place] [address] Mar, Arthritis M19.90 [facility] [address] [place] [id number] [address] [place] [address] Feb, Labyrinthitis of left ear H8 3.02 [facility] [address] [place] [id number] [address] [place] [address] Feb, Arthritis M19.90 [facility] [address] [place] [id number] [address] [place] [address] Jan, Labyrinthitis of left ear H8 3.02 [facility] [address] [place] [id number] [address] [place] [address] Jan, Arthritis M19.90 [facility] [address] [place] [id number] [address] [place] [address] Dec, Labyrinthitis of left ear H8 3.02 [facility] [address] [facility] [id number] [address] [place] [address] Nov, Arthritis M19.90 [facility] [address] [place] [id number] [address] [place] [address] Nov, Labyrinthitis of left ear H8 3.02 [facility] [address] [place] [id number] [address] [place] [address] Nov, BMI 40.0-44.9, adult Z68.41 ; Chronic kidney disease, stage 4 (severe) N18.4 and Acute right-sided thoracic back pain M54.6 [facility] [address] [facility] [id number] [address] [place] [address] October, Labyrinthitis of left ear H8 3.02 and Arthritis M19.90 [facility] [address] [place] [id number] [address] [place] [address] Sep, BPV (benign positional verti go), bilateral H81.13 ; Dysfunction of left eustachian tube H69.82 and BMI 40.0-44.9, adult Z68.41 [facility] [address] [facility] [id number] [address] [place] [address] Sep, Labyrinthitis of left ear H8 3.02 and Arthritis M19.90 [facility] [address] [place] [id number] [address] [place] [address] Sep, [facility] [address] [facility] [id number] [address] [place] [address] Sep, [facility] [address] [place] [id number] [address] [place] [address] Sep, Chronic kidney disease, stag e 4 (severe) N18.4 [facility] [address] [facility] [id number] [address] [place] [address] Sep, Chronic kidney disease, stag e 4 (severe) N18.4 [facility] [address] [id number] [address] [place] [address] Aug, Labyrinthitis of left ear H8 3.02 and Arthritis M19.90 [facility] [address] [facility] [id number] [address] [place] [address] Aug, [facility] [address] [facility] [id number] [address] [place] [address] Jul, [facility] [address] [place] [id number] [address] [place] [address] Jul, Arthritis M19.90 and Labyrin thitis of left ear H83.02 [facility] [address] [place] [id number] [address] [place] [address] Jul, [place] [address] [place] [id number] [address] [place] [address] Jun, [place] [address] [place] [id number] [address] [place] [address] Jun, Arthritis M19.90 and Labyrin thitis of left ear H83.02 [place] [address] [place] [id number] [place] [address] Jun, Pre-op evaluation Z01.818 ; BMI 40.0-44.9, adult Z68.41 and Encounter for immunization Z23 [place] [address] [place] [id number] [place] [address] May, Arthritis M19.90 and Labyrin thitis of left ear H83.02 [place] [address] [place] [id number] [address] [place] [address] Apr, Labyrinthitis of left ear H8 3.02 [place] [address] [place] [id number] [address] [place] [address] Apr, Arthritis M19.90 and Labyrin thitis of left ear H83.02 [place] [address] [place] [id number] [address] [place] [address] Mar, Arthritis M19.90 and Labyrin thitis of left ear H83.02 [place] [address] [place] [id number] [address] [place] [address] 05 Mar, 2017 Chronic kidney disease, stag e 4 (severe) N18.4 [facility] [address] [place] [id number] [address] [place] [address] 06 Feb, 2017 Arthritis M19.90 and Labyrin thitis of left ear H83.02 [facility] [address] [id number] [address] [place] [address] Jan, Labyrinthitis of left ear H8 3.02 and Deficiency of other specified B group vitamins E53.8 [facility] [address] [id number] [address] [place] [address] Dec, Arthritis M19.90 [facility] [address] [facility] [id number] [address] [place] [phone] Dec, BPV (benign positional verti go), bilateral H81.13 [facility] [address] [facility] [id number] [address] [place] [address] Dec, [facility] [address] [facility] [id number] [address] [place] [address] Dec, [facility] [address] [facility] [id number] [address] [place] [address] Dec, [facility] [address] [facility] [id number] [address] [place] [address] Nov, Arthritis M19.90 and Deficie ncy of other specified B group vitamins E53.8 [facility] [address] [facility] [id number] [address] [place] [address] Nov, Arthritis M19.90 [facility] [address] [facility] [id number] [address] [place] [address] Nov, Hyperparathyroidism E21.3 [facility] [address] [facility] [id number] [address] [place] [phone] October, [facility] [address] [facility] [id number] [address] [place] [address] October, Hyperparathyroidism E21.3 [facility] [address] [facility] [id number] [address] [place] [address] October, [facility] [address] [facility] [id number] [address] [place] [address] October, Renal insufficiency N28.9 an d Hyperparathyroidism E21.3 [facility] [address] [facility] [id number] [address] [place] [address] October, [facility] [address] [place] [id number] [address] [place] [address] October, Renal insufficiency N28.9 an d Hyperparathyroidism E21.3 [facility] [address] [place] [id number] [address] [place] [address] October, Arthritis M19.90 [facility] [address] [facility] [id number] [address] [place] [address] Sep, [facility] [address] [address] Sep, Lumbar neuritis M54.16 ; Tho racic abscess J86.9 and Deficiency of other specified B group vitamins E53.8 [facility] [address] [facility] [id number] [address] [place] [address] Sep, [facility] [address] [place] [id number] [address] [place] [address] Aug, Arthritis M19.90 [facility] [address] [place] [id number] [address] [place] [address] Aug, Hyperparathyroidism E21.3 [facility] [address] [place] [id number] [address] [place] [address] Aug, Hyperparathyroidism E21.3 [facility] [address] [place] [id number] [address] [place] [address] Aug, Arthritis M19.90 [facility] [address] [place] [id number] [address] [place] [address] Jul, Mass of throat R22.1 [facility] [address] [place] [id number] [address] [place] [address] Jul, [facility] [address] [place] [id number] [address] [place] [address] Jul, Arthritis M19.90 [facility] [address] [facility] [id number] [address] [place] [address] Jun, Arthritis M19.90 [facility] [address] [facility] [id number] [address] [place] [address] Jun, [facility] [address] [facility] [id number] [address] [place] [address] Jun, Renal insufficiency N28.9 an d Parathyroid abnormality E21.5 [facility] [address] [facility] [id number] [address] [place] [address] 05 Jun, 2016 Medicare welcome exam Z00.00 ; Encounter for immunization Z23 ; Arthritis M19.90 ; Medicare annual wellness visit, initial Z00.00 ; Medicare annual wellness visit, subsequent Z00.00 and Deficiency of other specified B group vitamins E53.8 [facility] [address] [facility] [id number] [address] [place] [phone] 29 May, 2016 Renal insufficiency N28.9 an d Parathyroid abnormality E21.5 [facility] [address] [facility] [id number] [address] [place] [phone] 19 May, 2016 Renal insufficiency N28.9 [facility] [address] [facility] [id number] [address] [place] [phone] 16 May, 2016 Renal insufficiency N28.9 [facility] [address] [facility] [id number] [address] [place] [phone] 14 May, 2016 [facility] [address] [facility] [id number] [address] [place] [phone] Apr, [facility] [address] [facility] [id number] [address] [place] [phone] Apr, [facility] [address] [facility] [id number] [address] [place] [phone] 14 Apr, 2016 Mass of throat R22.1 [facility] [address] [facility] [id number] [address] [place] [id number] 10 Apr, 2016 [facility] [address] [id number] [address] [place] [phone] 10 Apr, 2016 Mass of throat R22.1 [facility] [address] [id number] [address] [place] [id number] 04 Apr, 2016 Mass of throat R22.1 [facility] [address] [facility] [id number] [address] [place] [phone] Mar, [facility] [address] [facility] [id number] [address] [place] [phone] Mar, [facility] [address] [id number] [address] [place] [phone] Mar, [facility] [address] [facility] [id number] [address] [place] [phone] 24 Mar, 2016 Parathyroid abnormality E21. 5 and Encounter for immunization Z23 [facility] [address] [facility] [id number] [address] [place] [id number] Mar, [facility] [address] [facility] [id number] [address] [place] [phone] Mar, [facility] [address] [address] [facility] [id number] [address] [place] [address] 21 Feb, 2016 Renal insufficiency N28.9 an d Hyperparathyroidism E21.3 [facility] [address] [facility] [id number] [address] [place] [address] 19 Feb, 2016 [facility] [address] [facility] [id number] [address] [place] [address] 15 Feb, 2016 Renal insufficiency N28.9 an d Hyperparathyroidism E21.3 [facility] [address] [facility] [id number] [address] [place] [address] 14 Feb, 2016 [facility] [address] [facility] [id number] [address] [place] [address] 12 Feb, 2016 [facility] [address] [facility] [id number] [address] [place] [address] 09 Feb, 2016 [facility] [address] [facility] [id number] [address] [place] [address] Jan, [facility] [address] [facility] [id number] [address] [place] [address] Jan, Arthritis M19.90 ; Lumbago w ith sciatica, right side M54.41 and Other chronic pain G89.29 [facility] [address] [facility] [id number] [address] [place] [address] Jan, [facility] [address] [facility] [id number] [address] [place] [address] Dec, Arthritis M19.90 ; Lumbago w ith sciatica, right side M54.41 and Other chronic pain G89.29 [place] [address] [facility] [id number] [address] [place] [address] Nov, Deficiency of other specifie d B group vitamins E53.8 ; Primary insomnia F51.01 ; Mood disorder F39 and Lumbago with sciatica, right side M54.41 [facility] [address] [facility] [id number] [address] [place] [address] Nov, Hyperparathyroidism E21.3 [place] [address] [facility] [id number] [address] [place] [address] Nov, Unspecified kidney failure N 19 and Hyperparathyroidism E21.3 [place] [address] [facility] [id number] [address] [place] [address] October, Hyperparathyroidism E21.3 [place] [address] [facility] [id number] [address] [place] [address] October, [place] [address] [place] [id number] [address] [place] [address] October, Hyperparathyroidism E21.3 [facility] [address] [place] [id number] [address] [place] [address] October, Hyperparathyroidism E21.3 [facility] [address] [place] [id number] [address] [place] [address] Sep, Hyperparathyroidism E21.3 ; Hypercholesterolemia E78.0 and Arthritis M19.90 [facility] [address] [address] Aug, [facility] [address] [address] Aug, Deficiency of other specifie d B group vitamins E53.8 [facility] [address] [address] Aug, [facility] [address] [address] Jul, Urinary frequency R35.0 [facility] [address] [address] Jul, Urinary frequency R35.0 [facility] [address] [address] Jul, [facility] [address] [place] [id number] [address] [place] [address] Jul, [facility] [address] [address] Jun, Pain in left knee M25.562 [facility] [address] [address] Jun, [facility] [address] [address] May, Swelling of left knee joint M25.462 [facility] [address] [place] [id number] [address] [place] [address] May, [facility] [address] [place] [id number] [place] [address] May, [facility] [address] [place] [id number] [address] [place] [address] May, [facility] [address] [place] [id number] [address] [place] [address] Apr, Renal insufficiency N28.9 an d Chronic kidney disease, stage 4 (severe) N18.4 [facility] [address] [facility] [id number] [address] [place] [address] Apr, Unspecified kidney failure N 19 [facility] [address] [facility] [id number] [address] [place] [address] Apr, Unspecified kidney failure N 19 [facility] [address] [facility] [id number] [address] [place] [address] Apr, [facility] [address] [place] [id number] [address] [place] [address] Apr, Hyperparathyroidism, unspeci fied 252.00 [facility] [address] [facility] [id number] [address] [place] [address] Apr, [facility] [address] [facility] [id number] [address] [place] [address] Mar, [facility] [address] [facility] [id number] [address] [place] [address] Mar, [facility] [address] [place] [id number] [address] [place] [address] Mar, Hyperparathyroidism, unspeci fied 252.00 [facility] [address] [facility] [id number] [address] [place] [address] Feb, [facility] [address] [facility] [id number] [address] [place] [address] Feb, Otalgia 388.70 [facility] [address] [facility] [id number] [address] [place] [address] Feb, [facility] [address] [facility] [id number] [address] [place] [address] Feb, [facility] [address] [facility] [id number] [address] [place] [address] Jan, [facility] [address] [id number] [address] [place] [address] Jan, Hyperparathyroidism, unspeci fied 252.00 [facility] [address] [id number] [address] [place] [address] Jan, [facility] [address] [id number] [address] [place] [address] Jan, Other B-complex deficiencies 266.2 and Hyperparathyroidism, unspecified 252.00 [facility] [address] [id number] [address] [place] [address] Jan, [facility] [address] [id number] [address] [place] [address] Jan, [facility] [address] [id number] [address] [place] [address] Jan, [facility] [address] [id number] [address] [place] [address] Dec, [facility] [address] [id number] [address] [place] [address] Dec, [facility] [address] [id number] [address] [place] [address] Dec, [facility] [address] [id number] [address] [place] [address] Nov, Routine check-up V70.0 and P re-op exam V72.84 [facility] [address] [id number] [address] [place] [address] Nov, [facility] [address] [id number] [address] [place] [address] Nov, [facility] [address] [id number] [address] [place] [address] October, [facility] [address] [id number] [address] [place] [address] October, Other B-complex deficiencies 266.2 [facility] [address] [id number] [address] [place] [address], [place] [address] 12 Oct, 2014 [facility] [address] [id number] [address] [place] [address], [place] [address] 14 Sep, 2014 [facility] [address] [id number] [address] [place] [address], [place] [address] 13 Sep, 2014 [facility] [address] [id number] [address] [place] [address], [place] [address] 20 Aug, 2014 [facility] [address] [id number] [address] [place] [address], [place] [address] 20 Aug, 2014 [facility] [address] [id number] [address] [place] [address], [place] [address] 17 Aug, 2014 [facility] [address] [id number] [address] [place] [address], [place] [address] 17 Aug, 2014 [facility] [address] [id number] [address] [place] [address], [place] [address] Aug, [facility] [address] [id number] [address] [place] [address], [place] [address] Aug, [facility] [address] [id number] [address] [place] [address], [place] [address] 18 Jul, 2014 [facility] [address] [id number] [address] [place] [address], [place] [address] 18 Jul, 2014 [facility] [address] [id number] [address] [place] [address], [place] [address] 17 Jul, 2014 [facility] [address] [id number] [address] [place] [address], [place] [address] 17 Jul, 2014 [facility] [address] [id number] [address] [place] [address], [place] [address] 12 Jul, 2014 [facility] [address] [id number] [address] [place] [address], [place] [address] 12 Jul, 2014 [facility] [address] [id number] [address] [place] [address] Jul, 2014 [facility] [address] [id number] [address] [place] [address], [place] [address] Jul, 2014 [facility] [address] [id number] [address] [place] [address], [place] [address] Jul, 2014 [facility] [address] [id number] [address] [place] [address], [place] [address] Jul, 2014 [facility] [address] [id number] [address] [place] [address], [place] [address] Jul, 2014 [facility] [address] [id number] [address] [place] [address], [place] [address] Jul, 2014 [facility] [address] [id number] [address] [place] [address], [place] [address] Jul, [facility] [address] [id number] [address] [place] [address], [place] [address] Jul, [facility] [address] [id number] [address] [place] [address] Jun, [facility] [address] [id number] [address] [place] [address], [place] [address] Jun, [facility] [address] [id number] [address] [place] [address] Jun, [facility] [address] [id number] [address] [place] [address], [place] [address] Jun, [facility] [address] [id number] [address] [place] [address] Jun, [facility] [address] [id number] [address] [place] [address] Jun, [facility] [address] [id number] [address] [place] [address] Jun, [facility] [address] [id number] [address] [place] [address] Jun, [facility] [address] [id number] [address] [place] [address], [place] [address] Jun, [facility] [address] [id number] [address] [place] [address], [place] [address] Jun, [facility] [address] [id number] [address] [place] [address], [place] [address] Jun, [facility] [address] [id number] [address] [place] [address], [place] [address] Jun, [facility] [address] [id number] [address] [place] [address], [place] [address] Jun, [facility] [address] [id number] [address] [place] [address], [place] [address] Jun, [facility] [address] [id number] [address] [place] [address], [place] [address] May, [facility] [address] [id number] [address] [place] [address], [place] [address] May, [facility] [address] [id number] [address] [place] [address], [place] [address] May, [facility] [address] [id number] [address] [place] [address], [place] [address] May, [facility] [address] [id number] [address] [place] [address], [place] [address] Apr, [facility] [address] [id number] [address] [place] [address], [place] [address] Apr, [facility] [address] [id number] [address] [place] [address], [place] [address] Apr, [facility] [address] [id number] [address] [place] [address], [place] [address] Apr, [facility] [address] [id number] [address] [place] [address], [place] [address] Apr, [facility] [address] [id number] [address] [place] [address] Apr, [facility] [address] [id number] [address] [place] [address], [place] [address] Mar, [facility] [address] [id number] [address] [place] [address] Mar, [facility] [address] [id number] [address] [place] [address], [place] [address] Mar, [facility] [address] [id number] [address] [place] [address], [place] [address] Mar, [facility] [address] [id number] [address] [place] [address], [place] [address] Mar, [facility] [address] [id number] [address] [place] [address], [place] [address] Mar, [facility] [address] [id number] [address] [place] [address] Mar, [facility] [address] [id number] [address] [place] [address], [place] [address] Mar, [facility] [address] [id number] [address] [place] [address] Mar, [facility] [address] [id number] [address] [place] [address] Mar, [facility] [address] [id number] [address] [place] [address] Mar, [facility] [address] [id number] [address] [place] [address] 07 Mar, 2014 [facility] [address] [id number] [address] [place] [address], [place] [address] Mar, [facility] [address] [id number] [address] [place] [address] Feb, [facility] [address] [id number] [address] [place] [address], [place] [address] Feb, 2013 [facility] [address] [id number] [facility] [address] 23 Feb, 2013 [facility] [address] [id number] [facility] [place] [address] 23 Feb, 2013 [facility] [address] [id number] [address] [place] [address], [place] [address] 19 Feb, 2013 [facility] [address] [id number] [address] [place] [address], [place] [address] 19 Feb, 2013 [facility] [address] [id number] [address] [place] [address], [place] [address] 13 Feb, 2013 [facility] [address] [id number] [address] [place] [address], [place] [address] 13 Feb, 2013 [facility] [address] [id number] [address] [place] [address], [place] [address] Feb, [facility] [address] [id number] [address] [place] [address], [place] [address] Feb, [facility] [address] [id number] [address] [place] [address], [place] [address] Jan, [facility] [address] [id number] [address] [place] [address], [place] [address] Jan, [facility] [address] [id number] [address] [place] [address], [place] [address] Dec, [facility] [address] [id number] [address] [place] [address], [place] [address] Dec, [facility] [address] [id number] [address] [place] [address], [place] [address] Dec, [facility] [address] [id number] [address] [place] [address], [place] [address] Dec, [facility] [address] [id number] [address] [place] [address], [place] [address] Dec, [facility] [address] [id number] [address] [place] [address], [place] [address] Dec, [facility] [address] [id number] [facility] [place] [address] Nov, [facility] [address] [id number] [address] [place] [address], [place] [address] Nov, [facility] [address] [id number] [facility] [place] [address] Nov, [facility] [address] [id number] [address] [place] [address], [place] [address] Nov, [facility] [address] [id number] [facility] [place] [address] October, [facility] [address] [id number] [address] [place] [address], [place] [address] October, [facility] [address] [id number] [address] [place] [address], [place] [address] October, [facility] [address] [id number] [address] [place] [address], [place] [address] October, [facility] [address] [id number] [address] [place] [address], [place] [address] October, [facility] [address] [id number] [address] [place] [address], [place] [address] October, [facility] [address] [id number] [address] [place] [address], [place] [address] October, [facility] [address] [id number] [address] [place] [address], [place] [address] October, [facility] [address] [id number] [address] [place] [address], [place] [address] October, [facility] [address] [id number] [address] [place] [address], [place] [address] October, [facility] [address] [id number] [address] [place] [address], [place] [address] October, [facility] [address] [id number] [address] [place] [address], [place] [address] October, [facility] [address] [id number] [address] [place] [address], [place] [address] October, [facility] [address] [id number] [address] [place] [address], [place] [address] October, [facility] [address] [id number] [address] [place] [address], [place] [address] October, [facility] [address] [id number] [address] [place] [address], [place] [address] October, [facility] [address] [id number] [address] [place] [address], [place] [address] Sep, [facility] [address] [id number] [address] [place] [address], [place] [address] Sep, [facility] [address] [id number] [address] [place] [address], [place] [address] Sep, [facility] [address] [id number] [address] [place] [address], [place] [address] Sep, [facility] [address] [id number] [address] [place] [address], [place] [address] Sep, [facility] [address] [id number] [address] [place] [address], [place] [address] Sep, [facility] [address] [id number] [address] [place] [address], [place] [address] Aug, [facility] [address] [id number] [address] [place] [address], [place] [address] Aug, [facility] [address] [id number] [address] [place] [address], [place] [address] Aug, [facility] [address] [id number] [address] [place] [address], [place] [address] Aug, [facility] [address] [id number] [address] [place] [address], [place] [address] Aug, [facility] [address] [id number] [address] [place] [address], [place] [address] Aug, [facility] [address] [id number] [address] [place] [address], [place] [address] Jul, [facility] [address] [id number] [address] [place] [address], [place] [address] Jul, [facility] [address] [id number] [address] [place] [address], [place] [address] Jul, [facility] [address] [id number] [address] [place] [address], [place] [address] Jul, [facility] [address] [id number] [address] [place] [address], [place] [address] Jun, [facility] [address] [id number] [address] [place] [address], [place] [address] Jun, [facility] [address] [id number] [address] [place] [address], [place] [address] May, [facility] [address] [id number] [address] [place] [address], [place] [address] May, [facility] [address] [id number] [address] [place] [address], [place] [address] May, [facility] [address] [id number] [address] [place] [address], [place] [address] May, [facility] [address] [id number] [address] [place] [address], [place] [address] May, [facility] [address] [id number] [address] [place] [address], [place] [address] Apr, [facility] [address] [id number] [address] [place] [address], [place] [address] Apr, [facility] [address] [id number] [address] [place] [address], [place] [address] Apr, [facility] [address] [id number] [address] [place] [address] Apr, [facility] [address] [id number] [address] [place] [address], [place] [address] 04 Apr, 2013 [facility] [address] [id number] [address] [place] [address] 04 Apr, 2013 [facility] [address] [id number] [address] [place] [address], [place] [address] 15 Mar, 2013 [facility] [address] [id number] [address] [place] [address] 15 Mar, 2013 [facility] [address] [id number] [address] [place] [address], [place] [address] 14 Mar, 2013 [facility] [address] [id number] [address] [place] [address], [place] [address] 14 Mar, 2013 [facility] [address] [id number] [address] [place] [address], [place] [address] 11 Mar, 2013 [facility] [address] [id number] [address] [place] [address], [place] [address] Mar, [facility] [address] [id number] [address] [place] [address], [place] [address] 23 Feb, 2013 [facility] [address] [id number] [address] [place] [address], [place] [address] 19 Feb, 2013 [facility] [address] [id number] [address] [place] [address], [place] [address] 04 Feb, 2013 [facility] [address] [id number] [address] [place] [address], [place] [address] 30 Jan, 2013 [facility] [address] [id number] [address] [place] [address], [place] [address] Jan, [facility] [address] [id number] [address] [place] [address], [place] [address] Jan, [facility] [address] [id number] [address] [place] [address], [place] [address] 16 Jan, 2013 [facility] [address] [id number] [address] [place], [place] [address], [place] [address] Jan, [facility] [address] [id number] [address] [place] [address], [place] [address] Jan, [facility] [address] [id number] [address] [place] [address], [place] [address] Dec, [facility] [address] [id number] [address] [place] [address], [place] [address] Dec, [facility] [address] [id number] [address] [place] [address], [place] [address] Dec, [facility] [address] [id number] [address] [place] [address], [place] [address] Dec, [facility] [address] [id number] [address] [place] [address], [place] [address] Dec, [facility] [address] [id number] [address] [place] [address], [place] [address] Dec, [facility] [address] [id number] [address] [place] [address], [place] [address] Nov, [facility] [address] [id number] [address] [place] [address], [place] [address] Nov, [facility] [address] [id number] [address] [place] [address], [place] [address] Nov, [facility] [address] [id number] [address] [place] [address], [place] [address] Nov, [facility] [address] [id number] [address] [place] [address], [place] [address] Nov, [facility] [address] [id number] [address] [place] [address], [place] [address] Nov, [facility] [address] [id number] [address] [place] [address], [place] [address] October, [facility] [address] [id number] [address] [place] [address], [place] [address] October, [facility] [address] [id number] [address] [place] [address], [place] [address] October, [facility] [address] [id number] [address] [place] [address], [place] [address] October, [facility] [address] [id number] [address] [place] [address], [place] [address] October, [facility] [address] [id number] [address] [place] [address], [place] [address] Sep, [facility] [address] [id number] [address] [place] [address], [place] [address] Sep, [facility] [address] [id number] [address] [place] [address], [place] [address] Sep, [facility] [address] [id number] [address] [place] [address], [place] [address] Sep, [facility] [address] [id number] [address] [place] [address], [place] [address] Sep, [facility] [address] [id number] [address] [place] [address], [place] [address] Aug, [facility] [address] [id number] [address] [place] [address], [place] [address] Aug, [facility] [address] [id number] [address] [place] [address], [place] [address] Aug, [facility] [address] [id number] [address] [place] [address], [place] [address] Jul, [facility] [address] [id number] [address] [place] [address], [place] [address] Jul, [facility] [address] [id number] [address] [place] [address], [place] [address] Jul, [facility] [address] [id number] [address] [place] [address], [place] [address] Jul, [facility] [address] [id number] [address] [place] [address], [place] [address] 06 Jul, 2012 [facility] [address] [id number] [address] [place] [address], [place] [address] Jul, [facility] [address] [id number] [address] [place] [address], [place] [address] Jun, [facility] [address] [id number] [address] [place] [address], [place] [address] Apr, [facility] [address] [id number] [address] [place] [address], [place] [address] Apr, [facility] [address] [id number] [address] [place] [address], [place] [address] Apr, [facility] [address] [id number] [address] [place] [address], [place] [address] Apr, [facility] [address] [id number] [address] [place] [address], [place] [address] Mar, [facility] [address] [id number] [address] [place] [address], [place] [address] Mar, [facility] [address] [id number] [address] [place] [address], [place] [address] Mar, [facility] [address] [id number] [address] [place] [address], [place] [address] Mar, [facility] [address] [id number] [address] [place] [address], [place] [address] Mar, [facility] [address] [id number] [address] [place] [address], [place] [address] Feb, [facility] [address] [id number] [address] [place] [address], [place] [address] Jan, [facility] [address] [id number] [address] [place] [address], [place] [address] Jan, [facility] [address] [id number] [address] [place] [address], [place] [address] Jan, [facility] [address] [id number] [address] [place] [address] Dec, [facility] [address] [id number] [address] [place] [address] Nov, [facility] [address] [id number] [address] [place] [address] Nov, [facility] [address] [id number] [address] [place] [address] Nov, [facility] [address] [id number] [address] [place] [address] Nov, [facility] [address] [id number] [address] [place] [address] Nov, [facility] [address] [id number] [address] [place] [address] October, [facility] [address] [id number] [address] [place] [address] October, [facility] [address] [id number] [address] [place] [address] October, [facility] [address] [id number] [address] [place] [address] October, [facility] [address] [id number] [address] [place] [address] October, IMMUNIZATIONS No Known Immunizations SOCIAL HISTORY [...]
--- OUTSIDE RECORDS SUMMARY | 2020-01-25 08:20 | XMS REPORT ---
Author Author Velma CORDERO Organization [facility] Address [address] [place] [address] Care Team Providers Care Medical Office Secretary Name Role Phone STEPHAN CORDERO Unavailable PROBLEMS Type Condition ICD9-CM Code VFF16-EO Code Onset Dates Condition S tatus SNOMED Code Problem Corns L84 Active 134191915 Problem Primary insomnia F51.01 Active 397 2004 Problem Hyperparathyroidism E21.3 Active 33869451 Problem Hypercholesteremia E78.0 Active 1 8870293 Problem Mood disorder F39 Active 600247 05 Problem Arthritis M19.90 Active 2382585 Problem 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 Active 52717258 Problem Myalgia M79.1 Active 50953890 Problem Chronic kidney disease, stage 4 (severe) N18.4 Active 356714280 Problem Primary osteoarthritis of left knee M17.12 Active [id number] Problem Irritable bowel syndrome with both constipation and diarrh ea K58.2 Active 90288490 Problem Other chronic pain G89.29 Active 8 2505074 Problem BPV (benign positional vertigo), bilateral H81.13 Active 469230411 Problem Hyperparathyroidism, unspecified E21.3 Active 21017818 Problem Parathyroid abnormality E21.5 Active 41763726 Problem Body mass index (BMI) of 40.0-44.9 in adult Z68.41 Active 327187991 Problem Unspecified kidney failure N19 Act chip 59192925 Problem 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 Active 519820928 Problem Unspecified inflammatory spo ndylopathy, sacral and sacrococcygeal region M46.98 Active 15840774 ALLERGIES No Information ENCOUNTERS Encounter Location Date Diagnosis [facility] [address] [facility] [id number] [address] [place] [phone] October, Hyperparathyroidism, unspeci fied E21.3 [facility] [address] [facility] [id number] [address] [place] [phone] Sep, Hyperparathyroidism, unspeci fied E21.3 [facility] [address] [id number] [address] [place] [phone] Aug, Hyperparathyroidism, unspeci fied E21.3 [facility] [address] [id number] [address] [place] [phone] 05 Aug, 2019 Pain in left knee M25.562 ; Other chronic pain G89.29 ; Unspecified inflammatory spondylopathy, sacral and sacrococcygeal region M46.98 ; Chronic kidney disease, stage 4 (severe) N18.4 and Hyperparathyroidism, unspecified E21.3 [place] [address] [id number] [address] [place] [phone] Jul, [place] [address] [id number] [address] [place] [phone] Jul, Arthritis M19.90 [place] [address] [id number] [address] [place] [phone] Jun, Knee pain, left M25.562 [place] [id number] [id number] [address] [place] [phone] May, Arthritis M19.90 [place] [address] [facility] [id number] [address] [place] [phone] Apr, Well woman exam without gyne cological exam Z00.00 and Screening for breast cancer Z12.39 [place] [address] [id number] [address] [place] [address] Mar, Arthritis M19.90 [place] [id number] [id number] [address] [place] [phone] Mar, Arthritis M19.90 [facility] [address] [id number] [address] [place] [phone] Mar, [facility] [address] [facility] [id number] [address] [place] [address] Mar, Arthritis M19.90 and Encount er for immunization Z23 [facility] [address] [facility] [id number] [address] [place] [phone] 30 Feb, 2019 Arthritis M19.90 [facility] [address] [id number] [address] [place] [phone] 13 Feb, 2019 [facility] [address] [facility] [id number] [address] [place] [phone] Feb, Other specified disorders of bone density and structure, unspecified site M85.80 [facility] [address] [id number] [address] [place] [phone] Jan, Arthritis M19.90 [facility] [address] [facility] [id number] [address] [place] [phone] Dec, Arthritis M19.90 [facility] [address] [facility] [id number] [address] [place] [phone] Nov, Inflammatory spondylopathy o f sacral region M46.98 [facility] [address] [facility] [id number] [address] [place] [phone] Nov, [facility] [address] [facility] [id number] [address] [place] [phone] Nov, Labyrinthitis of left ear H8 3.02 [facility] [address] [facility] [id number] [address] [place] [phone] 03 Nov, 2018 Arthritis M19.90 [facility] [address] [facility] [id number] [address] [place] [phone] 15 Sep, 2018 Arthritis M19.90 [facility] [address] [facility] [id number] [address] [place] [phone] Sep, Renal insufficiency N28.9 an d Unspecified kidney failure N19 [facility] [address] [facility] [id number] [address] [place] [phone] Sep, Renal insufficiency N28.9 an d Unspecified kidney failure N19 [facility] [address] [facility] [id number] [address] [place] [phone] Sep, Arthritis M19.90 [facility] [address] [id number] [address] [place] [phone] Aug, Exercise counseling Z71.82 [facility] [address] [id number] [address] [place] [phone] Aug, [facility] [address] [id number] [address] [place] [phone] 27 Jul, 2018 Labyrinthitis of left ear H8 3.02 [facility] [address] [id number] [address] [place] [phone] 22 Jul, 2018 Labyrinthitis of left ear H8 3.02 [facility] [address] [facility] [id number] [address] [place] [phone] 19 Jul, 2018 Exercise counseling Z71.82 [facility] [address] [facility] [id number] [address] [place] [phone] 18 Jul, 2018 [facility] [address] [facility] [id number] [address] [place] [phone] 14 Jul, 2018 Arthritis M19.90 [facility] [address] [facility] [id number] [address] [place] [phone] 13 Jul, 2018 Encounter for Medicare annua l wellness exam Z00.00 ; Chronic kidney disease, stage 4 (severe) N18.4 ; Body mass index (BMI) of 40.0-44.9 in adult Z68.41 ; Hyperparathyroidism E21.3 and BMI 40.0-44.9, adult Z68.41 [facility] [address] [facility] [id number] [address] [place] [phone] 13 Jul, 2018 Encounter for Medicare annua l wellness exam Z00.00 ; Chronic kidney disease, stage 4 (severe) N18.4 ; Hyperparathyroidism E21.3 ; Body mass index (BMI) of 40.0-44.9 in adult Z68.41 and Encounter for immunization Z23 [facility] [address] [facility] [id number] [address] [place] [phone] Jul, Tail bone pain M53.3 [facility] [address] [id number] [address] [place] [phone] Jun, Exercise counseling Z71.82 [facility] [address] [id number] [address] [place] [phone] Jun, Labyrinthitis of left ear H8 3.02 [facility] [address] [id number] [address] [place] [id number] Jun, Tail bone pain M53.3 ; Irrit able bowel syndrome with both constipation and diarrhea K58.2 and Dysfunction of left eustachian tube H69.82 [facility] [address] [id number] [address] [place] [phone] Jun, Exercise counseling Z71.82 [place] [id number] [id number] [address] [place] [phone] Jun, Arthritis M19.90 [facility] [address] [id number] [address] [place] [phone] Jun, Irritable bowel syndrome wit h both constipation and diarrhea K58.2 ; Tail bone pain M53.3 and Dysfunction of left eustachian tube H69.82 [facility] [address] [id number] [address] [place] [id number] Jun, Exercise counseling Z71.82 [facility] [address] [id number] [address] [place] [phone] Jun, Exercise counseling Z71.82 [facility] [address] [id number] [address] [place] [phone] Jun, Labyrinthitis of left ear H8 3.02 [facility] [address] [id number] [address] [place] [phone] May, Exercise counseling Z71.82 [facility] [address] [id number] [address] [place] [phone] May, Arthritis M19.90 [facility] [address] [id number] [address] [place] [phone] May, Exercise counseling Z71.82 [facility] [address] [id number] [address] [place] [address] May, Exercise counseling Z71.82 [facility] [address] [id number] [address] [place] [phone] May, Labyrinthitis of left ear H8 3.02 [facility] [address] [id number] [address] [place] [phone] May, Exercise counseling Z71.82 [facility] [address] [id number] [address] [place] [phone] Apr, Arthritis M19.90 [facility] [address] [id number] [address] [place] [phone] Apr, Exercise counseling Z71.82 [facility] [address] [id number] [address] [place] [phone] Apr, Exercise counseling Z71.82 [facility] [address] [id number] [address] [place] [phone] Apr, Primary osteoarthritis of le ft knee M17.12 [facility] [address] [id number] [address] [place] [phone] Apr, Labyrinthitis of left ear H8 3.02 [facility] [address] [id number] [address] [place] [phone] Mar, Arthritis M19.90 [facility] [address] [id number] [address] [place] [phone] Mar, [facility] [address] [id number] [address] [place] [phone] Mar, Chronic kidney disease, stag e 4 (severe) N18.4 [facility] [address] [id number] [address] [place] [phone] Mar, Chronic kidney disease, stag e 4 (severe) N18.4 [facility] [address] [facility] [id number] [address] [place] [id number] Mar, Labyrinthitis of left ear H8 3.02 [facility] [address] [place] [id number] [address] [place] [phone] Mar, Chronic kidney disease, stag e 4 (severe) N18.4 ; Knee pain, left anterior M25.562 ; Deficiency of other specified B group vitamins E53.8 and Encounter for immunization Z23 [place] [address] [facility] [id number] [address] [place] [phone] Mar, Arthritis M19.90 [facility] [address] [facility] [id number] [address] [place] [phone] Feb, Labyrinthitis of left ear H8 3.02 [facility] [address] [place] [id number] [address] [place] [phone] Feb, Arthritis M19.90 [facility] [address] [facility] [id number] [address] [place] [phone] Jan, Labyrinthitis of left ear H8 3.02 [facility] [address] [place] [id number] [address] [place] [id number] Jan, Arthritis M19.90 [facility] [address] [facility] [id number] [address] [place] [phone] Dec, Labyrinthitis of left ear H8 3.02 [facility] [address] [facility] [id number] [address] [place] [phone] Nov, Arthritis M19.90 [facility] [address] [facility] [id number] [address] [place] [phone] Nov, Labyrinthitis of left ear H8 3.02 [facility] [address] [place] [id number] [address] [place] [address] Nov, BMI 40.0-44.9, adult Z68.41 ; Chronic kidney disease, stage 4 (severe) N18.4 and Acute right-sided thoracic back pain M54.6 [facility] [address] [facility] [id number] [address] [place] [phone] October, Labyrinthitis of left ear H8 3.02 and Arthritis M19.90 [facility] [address] [place] [id number] [place] [phone] Sep, BPV (benign positional verti go), bilateral H81.13 ; Dysfunction of left eustachian tube H69.82 and BMI 40.0-44.9, adult Z68.41 [place] [address] [place] [id number] [address] [place] [phone] Sep, Labyrinthitis of left ear H8 3.02 and Arthritis M19.90 [facility] [address] [place] [id number] [address] [place] [phone] Sep, [facility] [address] [place] [id number] [address] [place] [phone] Sep, [facility] [address] [place] [id number] [address] [place] [phone] Sep, Chronic kidney disease, stag e 4 (severe) N18.4 [facility] [address] [facility] [id number] [address] [place] [address] Sep, Chronic kidney disease, stag e 4 (severe) N18.4 [facility] [address] [facility] [id number] [address] [place] [phone] Aug, Labyrinthitis of left ear H8 3.02 and Arthritis M19.90 [facility] [address] [facility] [id number] [address] [place] [phone] Aug, [facility] [address] [facility] [id number] [address] [place] [phone] Jul, [facility] [address] [place] [id number] [address] [place] [phone] Jul, Arthritis M19.90 and Labyrin thitis of left ear H83.02 [place] [address] [place] [id number] [address] [place] [phone] Jul, [place] [address] [place] [id number] [address] [place] [phone] Jun, [place] [address] [place] [id number] [place] [phone] Jun, Arthritis M19.90 and Labyrin thitis of left ear H83.02 [place] [address] [place] [id number] [place] [address] Jun, Pre-op evaluation Z01.818 ; BMI 40.0-44.9, adult Z68.41 and Encounter for immunization Z23 [place] [address] [place] [id number] [address] [place] [phone] May, Arthritis M19.90 and Labyrin thitis of left ear H83.02 [place] [address] [place] [id number] [address] [place] [phone] Apr, Labyrinthitis of left ear H8 3.02 [place] [address] [place] [id number] [address] [place] [phone] 07 Apr, 2017 Arthritis M19.90 and Labyrin thitis of left ear H83.02 [place] [address] [place] [id number] [address] [place] [address] Mar, Arthritis M19.90 and Labyrin thitis of left ear H83.02 [place] [address] [place] [id number] [address] [place] [phone] 05 Mar, 2017 Chronic kidney disease, stag e 4 (severe) N18.4 [place] [address] [place] [id number] [address] [place] [phone] 06 Feb, 2017 Arthritis M19.90 and Labyrin thitis of left ear H83.02 [facility] [address] [id number] [address] [place] [phone] Jan, Labyrinthitis of left ear H8 3.02 and Deficiency of other specified B group vitamins E53.8 [facility] [address] [id number] [address] [place] [phone] Dec, Arthritis M19.90 [facility] [address] [id number] [address] [place] [phone] Dec, BPV (benign positional verti go), bilateral H81.13 [facility] [address] [facility] [id number] [address] [place] [phone] Dec, [facility] [address] [facility] [id number] [address] [place] [phone] Dec, [facility] [address] [facility] [id number] [address] [place] [phone] Dec, [facility] [address] [facility] [id number] [address] [place] [phone] Nov, Arthritis M19.90 and Deficie ncy of other specified B group vitamins E53.8 [facility] [address] [facility] [id number] [address] [place] [phone] Nov, Arthritis M19.90 [facility] [address] [facility] [id number] [address] [place] [phone] Nov, Hyperparathyroidism E21.3 [facility] [address] [facility] [id number] [address] [place] [phone] October, [facility] [address] [facility] [id number] [address] [place] [phone] October, Hyperparathyroidism E21.3 [facility] [address] [facility] [id number] [address] [place] [phone] October, [facility] [address] [facility] [id number] [address] [place] [phone] October, Renal insufficiency N28.9 an d Hyperparathyroidism E21.3 [facility] [address] [facility] [id number] [address] [place] [phone] October, [facility] [address] [address] October, Renal insufficiency N28.9 an d Hyperparathyroidism E21.3 [facility] [address] [place] [id number] [address] [place] [phone] October, Arthritis M19.90 [facility] [address] [place] [id number] [address] [place] [phone] Sep, [facility] [address] [address] Sep, Lumbar neuritis M54.16 ; Tho racic abscess J86.9 and Deficiency of other specified B group vitamins E53.8 [facility] [address] [place] [id number] [address] [place] [phone] Sep, [facility] [address] [place] [id number] [address] [place] [phone] Aug, Arthritis M19.90 [facility] [address] [phone] Aug, Hyperparathyroidism E21.3 [facility] [address] [place] [id number] [address] [place] [address] Aug, Hyperparathyroidism E21.3 [facility] [address] [place] [id number] [place] [address] Aug, Arthritis M19.90 [facility] [address] [phone] Jul, Mass of throat R22.1 [facility] [address] [place] [id number] [address] [place] [phone] Jul, [facility] [address] [phone] Jul, Arthritis M19.90 [facility] [address] [facility] [id number] [address] [place] [phone] Jun, Arthritis M19.90 [facility] [address] [facility] [id number] [address] [place] [phone] Jun, [facility] [address] [facility] [id number] [address] [place] [phone] Jun, Renal insufficiency N28.9 an d Parathyroid abnormality E21.5 [facility] [address] [facility] [id number] [address] [place] [phone] 05 Jun, 2016 Medicare welcome exam Z00.00 ; Encounter for immunization Z23 ; Arthritis M19.90 ; Medicare annual wellness visit, initial Z00.00 ; Medicare annual wellness visit, subsequent Z00.00 and Deficiency of other specified B group vitamins E53.8 [facility] [address] [facility] [id number] [address] [place] [phone] 29 May, 2016 Renal insufficiency N28.9 an d Parathyroid abnormality E21.5 [facility] [address] [facility] [id number] [address] [place] [phone] 19 May, 2016 Renal insufficiency N28.9 [facility] [address] [facility] [id number] [address] [place] [phone] 16 May, 2016 Renal insufficiency N28.9 [facility] [address] [facility] [id number] [address] [place] [phone] 14 May, 2016 [facility] [address] [facility] [id number] [address] [place] [phone] Apr, [facility] [address] [facility] [id number] [address] [place] [phone] Apr, [facility] [address] [facility] [id number] [address] [place] [phone] 14 Apr, 2016 Mass of throat R22.1 [facility] [address] [facility] [id number] [address] [place] [phone] 10 Apr, 2016 [facility] [address] [id number] [address] [place] [phone] 10 Apr, 2016 Mass of throat R22.1 [facility] [address] [facility] [id number] [address] [place] [phone] 04 Apr, 2016 Mass of throat R22.1 [facility] [address] [facility] [id number] [address] [place] [phone] Mar, [facility] [address] [facility] [id number] [address] [place] [phone] Mar, [facility] [address] [facility] [id number] [address] [place] [phone] Mar, [facility] [address] [facility] [id number] [address] [place] [phone] 24 Mar, 2016 Parathyroid abnormality E21. 5 and Encounter for immunization Z23 [facility] [address] [facility] [id number] [address] [place] [phone] 17 Mar, 2016 [facility] [address] [facility] [id number] [address] [place] [phone] Mar, [facility] [address] [facility] [id number] [address] [place] [id number] 21 Feb, 2016 Renal insufficiency N28.9 an d Hyperparathyroidism E21.3 [facility] [address] [facility] [id number] [address] [place] [id number] 19 Feb, 2016 [facility] [address] [facility] [id number] [address] [place] [id number] 15 Feb, 2016 Renal insufficiency N28.9 an d Hyperparathyroidism E21.3 [facility] [address] [facility] [id number] [address] [place] [address] 14 Feb, 2016 [facility] [address] [facility] [id number] [address] [place] [id number] 12 Feb, 2016 [facility] [address] [facility] [id number] [address] [place] [id number] Feb, [facility] [address] [facility] [id number] [address] [place] [id number] Jan, [facility] [address] [facility] [id number] [address] [place] [address] Jan, Arthritis M19.90 ; Lumbago w ith sciatica, right side M54.41 and Other chronic pain G89.29 [facility] [address] [facility] [id number] [address] [place] [address] Jan, [facility] [address] [facility] [id number] [address] [place] [address] Dec, Arthritis M19.90 ; Lumbago w ith sciatica, right side M54.41 and Other chronic pain G89.29 [facility] [address] [facility] [id number] [address] [place] [address] Nov, Deficiency of other specifie d B group vitamins E53.8 ; Primary insomnia F51.01 ; Mood disorder F39 and Lumbago with sciatica, right side M54.41 [facility] [address] [facility] [id number] [address] [place] [address] Nov, Hyperparathyroidism E21.3 [place] [address] [facility] [id number] [address] [place] [id number] Nov, Unspecified kidney failure N 19 and Hyperparathyroidism E21.3 [facility] [address] [facility] [id number] [address] [place] [id number] October, Hyperparathyroidism E21.3 [facility] [address] [facility] [id number] [address] [place] [address] October, [facility] [address] [place] [id number] [address] [place] [address] October, Hyperparathyroidism E21.3 [facility] [address] [facility] [id number] [address] [place] [id number] October, Hyperparathyroidism E21.3 [facility] [address] [place] [id number] [address] [place] [address] Sep, Hyperparathyroidism E21.3 ; Hypercholesterolemia E78.0 and Arthritis M19.90 [facility] [address] [place] [id number] [address] [place] [id number] Aug, [facility] [address] [facility] [id number] [address] [place] [address] Aug, Deficiency of other specifie d B group vitamins E53.8 [facility] [address] [facility] [id number] [address] [place] [phone] Aug, [facility] [address] [place] [id number] [address] [place] [address] Jul, Urinary frequency R35.0 [facility] [address] [place] [id number] [address] [place] [id number] Jul, Urinary frequency R35.0 [facility] [address] [address] Jul, [facility] [id number] [place] [address] Jul, [facility] [address] [address] Jun, Pain in left knee M25.562 [facility] [address] [place] [id number] [address] [place] [address] Jun, [facility] [address] [place] [id number] [address] [place] [address] May, Swelling of left knee joint M25.462 [facility] [address] [place] [id number] [address] [place] [address] May, [facility] [address] [place] [id number] [address] [place] [id number] May, [facility] [address] [place] [id number] [address] [place] [id number] May, [facility] [address] [facility] [id number] [address] [place] [id number] Apr, Renal insufficiency N28.9 an d Chronic kidney disease, stage 4 (severe) N18.4 [facility] [address] [facility] [id number] [address] [place] [address] Apr, Unspecified kidney failure N 19 [facility] [address] [facility] [id number] [address] [place] [address] Apr, Unspecified kidney failure N 19 [facility] [address] [facility] [id number] [address] [place] [phone] Apr, [facility] [address] [place] [id number] [address] [place] [id number] Apr, Hyperparathyroidism, unspeci fied 252.00 [facility] [address] [place] [id number] [address] [place] [id number] Apr, [facility] [address] [place] [id number] [address] [place] [id number] Mar, [facility] [address] [facility] [id number] [address] [place] [id number] Mar, [facility] [address] [place] [id number] [address] [place] [id number] Mar, Hyperparathyroidism, unspeci fied 252.00 [facility] [address] [facility] [id number] [address] [place] [id number] Feb, [facility] [address] [facility] [id number] [address] [place] [address] Feb, Otalgia 388.70 [facility] [address] [place] [id number] [address] [place] [id number] Feb, [facility] [address] [place] [id number] [address] [place] [phone] Feb, [facility] [address] [place] [id number] [address] [place] [address] Jan, [facility] [address] [id number] [address] [place] [id number] Jan, Hyperparathyroidism, unspeci fied 252.00 [facility] [address] [id number] [address] [place] [address] Jan, [facility] [address] [id number] [address] [place] [phone] Jan, Other B-complex deficiencies 266.2 and Hyperparathyroidism, unspecified 252.00 [facility] [address] [id number] [address] [place] [id number] Jan, [facility] [address] [id number] [address] [place] [id number] Jan, [facility] [address] [id number] [address] [place] [id number] Jan, [facility] [address] [id number] [address] [place] [address] Dec, [facility] [address] [id number] [address] [place] [id number] Dec, [facility] [address] [id number] [address] [place] [id number] Dec, [facility] [address] [id number] [address] [place] [phone] Nov, Routine check-up V70.0 and P re-op exam V72.84 [facility] [address] [id number] [address] [place] [id number] Nov, [facility] [address] [id number] [address] [place] [phone] Nov, [facility] [address] [id number] [address] [place] [id number] October, [facility] [address] [id number] [address] [place] [id number] October, Other B-complex deficiencies 266.2 [facility] [address] [id number] [address] [place] [address], [place] [address] 12 Oct, 2014 [facility] [address] [id number] [address] [place] [address], [place] [address] 14 Sep, 2014 [facility] [address] [id number] [address] [place] [address], [place] [address] 13 Sep, 2014 [facility] [address] [id number] [address] [place] [address], [place] [address] 20 Aug, 2014 [facility] [address] [id number] [address] [place] [address], [place] [address] 20 Aug, 2014 [facility] [address] [id number] [address] [place] [address], [place] [address] 17 Aug, 2014 [facility] [address] [id number] [address] [place] [address], [place] [address] 17 Aug, 2014 [facility] [address] [id number] [address] [place] [address], [place] [address] 11 Aug, 2014 [facility] [address] [id number] [address] [place] [address], [place] [address] Aug, [facility] [address] [id number] [address] [place] [address], [place] [address] 18 Jul, 2014 [facility] [address] [id number] [address] [place] [address], [place] [address] 18 Jul, 2014 [facility] [address] [id number] [address] [place] [id number] 17 Jul, 2014 [facility] [address] [id number] [address] [place] [address], [place] [address] 17 Jul, 2014 [facility] [address] [id number] [address] [place] [address], [place] [address] 12 Jul, 2014 [facility] [address] [id number] [address] [place] [address], [place] [address] 12 Jul, 2014 [facility] [address] [id number] [address] [place] [phone] Jul, 2014 [facility] [address] [id number] [address] [place] [address], [place] [address] Jul, 2014 [facility] [address] [id number] [address] [place] [address], [place] [address] Jul, 2014 [facility] [address] [id number] [address] [place] [address], [place] [address] Jul, 2014 [facility] [address] [id number] [address] [place] [address], [place] [address] Jul, 2014 [facility] [address] [id number] [address] [place] [address], [place] [address] Jul, 2014 [facility] [address] [id number] [address] [place] [address], [place] [address] Jul, 2014 [facility] [address] [id number] [address] [place] [address], [place] [address] Jul, [facility] [address] [id number] [address] [place] [address], [place] [address] Jun, [facility] [address] [id number] [address] [place] [address], [place] [address] Jun, [facility] [address] [id number] [address] [place] [id number] Jun, [facility] [address] [id number] [address] [place] [address], [place] [address] Jun, [facility] [address] [id number] [address] [place] [phone] Jun, [facility] [address] [id number] [address] [place] [address], [place] [address] Jun, [facility] [address] [id number] [address] [place] [address], [place] [address] Jun, [facility] [address] [id number] [address] [place] [address], [place] [address] Jun, [facility] [address] [id number] [address] [place] [address], [place] [address] Jun, [facility] [address] [id number] [address] [place] [address], [place] [address] Jun, [facility] [address] [id number] [address] [place] [address], [place] [address] Jun, [facility] [address] [id number] [address] [place] [address], [place] [address] Jun, [facility] [address] [id number] [address] [place] [address], [place] [address] Jun, [facility] [address] [id number] [address] [place] [address], [place] [address] Jun, [facility] [address] [id number] [address] [place] [address], [place] [address] May, [facility] [address] [id number] [address] [place] [address], [place] [address] May, [facility] [address] [id number] [address] [place] [address], [place] [address] May, [facility] [address] [id number] [address] [place] [address], [place] [address] May, [facility] [address] [id number] [address] [place] [address], [place] [address] Apr, [facility] [address] [id number] [address] [place] [address], [place] [address] Apr, [facility] [facility] [address] [id number] [address] [place] [address], [place] [address] Apr, [facility] [address] [id number] [address] [place] [address], [place] [address] Apr, [facility] [address] [id number] [address] [place] [address], [place] [address] Apr, [facility] [place] [facility] [address] [id number] [address] [place] [address] Apr, [facility] [place] [address] [id number] [address] [place] [address], [place] [address] Mar, [facility] [place] [facility] [address] [id number] [address] [place] [address] Mar, [facility] [place] [facility] [address] [id number] [address] [place] [address], [place] [address] Mar, [facility] [place] [facility] [address] [id number] [address] [place] [address], [place] [address] Mar, [facility] [address] [id number] [address] [place] [address], [place] [address] Mar, [facility] [place] [facility] [address] [id number] [address] [place] [address], [place] [address] Mar, [facility] [address] [id number] [address] [place] [address] Mar, [facility] [place] [facility] [address] [id number] [address] [place] [address], [place] [address] Mar, [facility] [place] [facility] [address] [id number] [address] [place] [address], [place] [address] Mar, [facility] [place] [facility] [address] [id number] [address] [place] [address] Mar, [facility] [place] [facility] [address] [id number] [address] [place] [address] Mar, 2013 [facility] [place] [facility] [address] [id number] [address] [place] [address] 07 Mar, 2013 [facility] [place] [facility] [address] [id number] [address] [place] [address] Mar, [facility] [place] [facility] [address] [id number] [address] [place] [phone] Feb, 2013 [facility] [place] [facility] [address] [id number] [address] [place] [address] Feb, 2013 [facility] [place] [facility] [address] [id number] [facility] [address] 23 Feb, 2013 [facility] [place] [facility] [address] [id number] [facility] [address] 23 Feb, 2013 [facility] [place] [facility] [address] [id number] [facility] [address] 19 Feb, 2013 [facility] [place] [facility] [address] [id number] [facility] [address] 19 Feb, 2013 [facility] [place] [facility] [address] [id number] [facility] [address] 13 Feb, 2013 [facility] [place] [facility] [address] [id number] [address] [place] [address], [place] [address] 13 Feb, 2013 [facility] [place] [facility] [address] [id number] [address] [place] [address], [place] [address] Feb, [facility] [place] [facility] [address] [id number] [address] [place] [address], [place] [address] Feb, [facility] [address] [id number] [address] [place] [address], [place] [address] Jan, [facility] [place] [facility] [address] [id number] [address] [place] [address], [place] [address] Jan, [facility] [place] [facility] [address] [id number] [address] [place] [address], [place] [address] Dec, [facility] [place] [facility] [address] [id number] [address] [place] [address], [place] [address] Dec, [facility] [place] [facility] [address] [id number] [address] [place] [address], [place] [address] Dec, [facility] [place] [facility] [address] [id number] [address] [place] [address], [place] [address] Dec, [facility] [place] [facility] [address] [id number] [address] [place] [address], [place] [address] Dec, [facility] [place] [facility] [address] [id number] [address] [place] [address], [place] [address] Dec, [facility] [address] [id number] [facility] [address] Nov, [facility] [address] [id number] [facility] [address] Nov, [facility] [address] [id number] [facility] [address] Nov, [facility] [address] [id number] [address] [place] [address], [place] [address] Nov, [facility] [address] [id number] [facility] [address] October, [facility] [address] [id number] [address] [place] [address], [place] [address] October, [facility] [address] [id number] [address] [place] [address], [place] [address] October, [facility] [address] [id number] [address] [place] [address], [place] [address] October, [facility] [address] [id number] [address] [place] [address], [place] [address] October, [facility] [address] [id number] [address] [place] [address], [place] [address] October, [facility] [address] [id number] [address] [place] [address], [place] [address] October, [facility] [place] [facility] [address] [id number] [address] [place] [address], [place] [address] October, [facility] [place] [facility] [address] [id number] [address] [place] [address], [place] [address] October, [facility] [place] [facility] [address] [id number] [address] [place] [address], [place] [address] October, [facility] [place] [facility] [address] [id number] [address] [place] [address], [place] [address] October, [facility] [address] [id number] [address] [address] October, [facility] [address] [id number] [address] [place] [address], [place] [address] October, [facility] [address] [id number] [address] [place] [address], [place] [address] October, [facility] [address] [id number] [address] [place] [address], [place] [address] October, [facility] [address] [id number] [address] [place] [address], [place] [address] October, [facility] [address] [id number] [address] [place] [address], [place] [address] Sep, [facility] [address] [id number] [address] [place] [address], [place] [address] Sep, [facility] [address] [id number] [address] [place] [address], [place] [address] Sep, [facility] [address] [id number] [address] [place] [address], [place] [address] Sep, [facility] [address] [id number] [address] [place] [address], [place] [address] Sep, [facility] [address] [id number] [address] [place] [address], [place] [address] Sep, [facility] [address] [id number] [address] [place] [address], [place] [address] Aug, [facility] [address] [id number] [address] [place] [address], [place] [address] Aug, [facility] [address] [id number] [address] [place] [address], [place] [address] Aug, [facility] [address] [id number] [address] [place] [address], [place] [address] Aug, [facility] [address] [id number] [address] [place] [address], [place] [address] Aug, [facility] [address] [id number] [address] [place] [address], [place] [address] Aug, [facility] [address] [id number] [address] [place] [address], [place] [address] Jul, [facility] [address] [id number] [address] [place] [address], [place] [address] Jul, [facility] [address] [id number] [address] [place] [address], [place] [address] Jul, [facility] [address] [id number] [address] [place] [address], [place] [address] Jul, [facility] [address] [id number] [address] [place] [address], [place] [address] Jun, [facility] [address] [id number] [address] [place] [address], [place] [address] Jun, [facility] [address] [id number] [address] [place] [address], [place] [address] May, [facility] [address] [id number] [address] [place] [address], [place] [address] May, [facility] [address] [id number] [address] [place] [address], [place] [address] May, [facility] [address] [id number] [address] [place] [address], [place] [address] May, [facility] [address] [id number] [address] [place] [address] May, [facility] [address] [id number] [address] [place] [address], [place] [address] Apr, [facility] [address] [id number] [address] [place] [address], [place] [address] Apr, [facility] [address] [id number] [address] [place] [address], [place] [address] Apr, [facility] [address] [id number] [address] [place] [address] Apr, [facility] [address] [id number] [address] [place] [address], [place] [address] Apr, [facility] [address] [id number] [address] [place] [address] 04 Apr, 2013 [facility] [address] [id number] [address] [place] [address], [place] [address] 15 Mar, 2013 [facility] [address] [id number] [address] [place] [address], [place] [address] 15 Mar, 2013 [facility] [address] [id number] [address] [place] [address], [place] [address] 14 Mar, 2013 [facility] [address] [id number] [address] [place] [address], [place] [address] 14 Mar, 2013 [facility] [address] [id number] [address] [place] [address] Mar, [facility] [address] [id number] [address] [place] [address], [place] [address] Mar, [facility] [address] [id number] [address] [place] [address], [place] [address] 23 Feb, 2013 [facility] [address] [id number] [address] [place] [address], [place] [address] 19 Feb, 2013 [facility] [address] [id number] [address] [place] [address], [place] [address] 04 Feb, 2013 [facility] [address] [id number] [address] [place] [id number] 30 Jan, 2013 [facility] [address] [id number] [address] [place] [address], [place] [address] Jan, [facility] [address] [id number] [address] [place] [address], [place] [address] Jan, [facility] [facility] [address] [id number] [address] [place] [address], [place] [address] 16 Jan, 2013 [facility] [address] [id number] [address] [place] [address], [place] [address] Jan, [facility] [address] [id number] [address] [place] [address], [place] [address] Jan, [facility] [address] [id number] [address] [place] [address], [place] [address] Dec, [facility] [address] [id number] [address] [place] [address], [place] [address] Dec, [facility] [address] [id number] [address] [place] [address], [place] [address] Dec, [facility] [address] [id number] [address] [place] [address], [place] [address] Dec, [facility] [address] [id number] [address] [place] [address], [place] [address] Dec, [facility] [address] [id number] [address] [place] [address], [place] [address] Dec, [facility] [address] [id number] [address] [place] [address], [place] [address] Nov, [facility] [address] [id number] [address] [place] [address], [place] [address] Nov, [facility] [address] [id number] [address] [place] [address], [place] [address] Nov, [facility] [address] [id number] [address] [place] [address], [place] [address] Nov, [facility] [address] [id number] [address] [place] [address], [place] [address] Nov, [facility] [address] [id number] [address] [place] [address], [place] [address] Nov, [facility] [address] [id number] [address] [place] [address], [place] [address] October, [facility] [address] [id number] [address] [place] [address], [place] [address] October, [facility] [address] [id number] [address] [place] [address], [place] [address] October, [facility] [address] [id number] [address] [place] [address], [place] [address] October, [facility] [address] [id number] [address] [place] [address], [place] [address] October, [facility] [address] [id number] [address] [place] [address], [place] [address] Sep, [facility] [address] [id number] [address] [place] [address], [place] [address] Sep, [facility] [address] [id number] [address] [place] [address], [place] [address] Sep, [facility] [address] [id number] [address] [place] [address], [place] [address] Sep, [facility] [address] [id number] [address] [place] [address], [place] [address] Sep, [facility] [address] [id number] [address] [place] [address], [place] [address] Aug, [facility] [address] [id number] [address] [place] [address], [place] [address] Aug, [facility] [address] [id number] [address] [place] [address], [place] [address] Aug, [facility] [address] [id number] [address] [place] [address], [place] [address] Jul, [facility] [address] [id number] [address] [place] [address], [place] [address] Jul, [facility] [address] [id number] [address] [place] [address], [place] [address] Jul, [facility] [address] [id number] [address] [place] [address], [place] [address] 08 Jul, 2012 [facility] [address] [id number] [address] [place] [address], [place] [address] Jul, [facility] [address] [id number] [address] [place] [address], [place] [address] Jul, [facility] [address] [id number] [address] [place] [address], [place] [address] Jun, [facility] [address] [id number] [address] [place] [address], [place] [address] Apr, [facility] [address] [id number] [address] [place] [address], [place] [address] Apr, [facility] [address] [id number] [address] [place] [address], [place] [address] Apr, [facility] [address] [id number] [address] [place] [address], [place] [address] Apr, [facility] [address] [id number] [address] [place] [address], [place] [address] Mar, [facility] [address] [id number] [address] [place] [address], [place] [address] Mar, [facility] [address] [id number] [address] [place] [address], [place] [address] Mar, [facility] [address] [id number] [address] [place] [address], [place] [address] Mar, [facility] [address] [id number] [address] [place] [address], [place] [address] Mar, [facility] [address] [id number] [address] [place] [address], [place] [address] Feb, [facility] [address] [id number] [address] [place] [address], [place] [address] Jan, [facility] [address] [id number] [address] [place] [address], [place] [address] Jan, [facility] [address] [id number] [address] [place] [address], [place] [address] Jan, [facility] [address] [id number] [address] [place] [address] Dec, [facility] [address] [id number] [address] [place] [address] Nov, [facility] [address] [id number] [address] [place] [address] Nov, [facility] [address] [id number] [address] [place] [address] Nov, [facility] [address] [id number] [address] [place] [address] Nov, [facility] [address] [id number] [address] [place] [address] Nov, [facility] [address] [id number] [address] [place] [address] October, [facility] [address] [id number] [address] [place] [address] October, [facility] [address] [id number] [address] [place] [address] October, [facility] [address] [id number] [address] [place] [id number] October, [facility] [address] [id number] [address] [place] [address] October, IMMUNIZATIONS No Known Immunizations SOCIAL HISTORY [...]
--- OUTSIDE RECORDS SUMMARY | 2020-01-25 08:20 | XMS REPORT ---
Author Author Velma CORDERO Organization [facility] Address [address] [place] [address] Care Team Providers Care Supervising Film Or Videotape Editor Name Role Phone STEPHAN CORDERO Unavailable PROBLEMS Type Condition ICD9-CM Code AYR37-YB Code Onset Dates Condition S tatus SNOMED Code Problem Corns L84 Active 975822979 Problem Primary insomnia F51.01 Active 397 2004 Problem Hyperparathyroidism E21.3 Active 30840000 Problem Hypercholesteremia E78.0 Active 1 5528826 Problem Mood disorder F39 Active 774318 05 Problem Arthritis M19.90 Active 2761399 Problem 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 Active 91993970 Problem Myalgia M79.1 Active 71686805 Problem Chronic kidney disease, stage 4 (severe) N18.4 Active 682698195 Problem Primary osteoarthritis of left knee M17.12 Active [id number] Problem Irritable bowel syndrome with both constipation and diarrh ea K58.2 Active 10139310 Problem Other chronic pain G89.29 Active 8 5096098 Problem BPV (benign positional vertigo), bilateral H81.13 Active 106479981 Problem Hyperparathyroidism, unspecified E21.3 Active 58376861 Problem Parathyroid abnormality E21.5 Active 85619519 Problem Body mass index (BMI) of 40.0-44.9 in adult Z68.41 Active 308842846 Problem Unspecified kidney failure N19 Act chip 27462796 Problem 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 Active 788005469 Problem Unspecified inflammatory spo ndylopathy, sacral and sacrococcygeal region M46.98 Active [id number] ALLERGIES No Information ENCOUNTERS Encounter Location Date Diagnosis [facility] [address] [facility] [id number] [address] [place] [phone] October, Hyperparathyroidism, unspeci fied E21.3 [facility] [address] [facility] [id number] [address] [place] [phone] Sep, Hyperparathyroidism, unspeci fied E21.3 [facility] [address] [id number] [address] [place] [phone] Aug, Hyperparathyroidism, unspeci fied E21.3 [facility] [address] [id number] [address] [place] [id number] 05 Aug, 2019 Pain in left knee M25.562 ; Other chronic pain G89.29 ; Unspecified inflammatory spondylopathy, sacral and sacrococcygeal region M46.98 ; Chronic kidney disease, stage 4 (severe) N18.4 and Hyperparathyroidism, unspecified E21.3 [place] [address] [id number] [address] [place] [phone] Jul, [place] [address] [id number] [address] [place] [address] Jul, Arthritis M19.90 [place] [address] [id number] [address] [place] [address] Jun, Knee pain, left M25.562 [place] [address] [id number] [address] [place] [address] May, Arthritis M19.90 [place] [address] [facility] [id number] [address] [place] [address] Apr, Well woman exam without gyne cological exam Z00.00 and Screening for breast cancer Z12.39 [place] [address] [id number] [address] [place] [address] Mar, Arthritis M19.90 [place] [address] [id number] [address] [place] [phone] Mar, Arthritis M19.90 [facility] [address] [id number] [address] [place] [id number] Mar, [facility] [address] [facility] [id number] [address] [place] [address] Mar, Arthritis M19.90 and Encount er for immunization Z23 [facility] [address] [facility] [id number] [address] [place] [phone] 30 Feb, 2019 Arthritis M19.90 [facility] [address] [id number] [address] [place] [id number] 13 Feb, 2019 [facility] [address] [facility] [id number] [address] [place] [id number] Feb, Other specified disorders of bone density and structure, unspecified site M85.80 [facility] [address] [id number] [address] [place] [address] Jan, Arthritis M19.90 [facility] [address] [facility] [id number] [address] [place] [id number] Dec, Arthritis M19.90 [facility] [address] [facility] [id number] [address] [place] [address] Nov, Inflammatory spondylopathy o f sacral region M46.98 [facility] [address] [facility] [id number] [address] [place] [address] Nov, [facility] [address] [facility] [id number] [address] [place] [phone] Nov, Labyrinthitis of left ear H8 3.02 [facility] [address] [facility] [id number] [address] [place] [id number] 03 Nov, 2018 Arthritis M19.90 [facility] [address] [facility] [id number] [address] [place] [id number] 15 Sep, 2018 Arthritis M19.90 [facility] [address] [facility] [id number] [address] [place] [address] Sep, Renal insufficiency N28.9 an d Unspecified kidney failure N19 [facility] [address] [facility] [id number] [address] [place] [phone] Sep, Renal insufficiency N28.9 an d Unspecified kidney failure N19 [facility] [address] [facility] [id number] [address] [place] [address] Sep, Arthritis M19.90 [facility] [address] [id number] [address] [place] [address] Aug, Exercise counseling Z71.82 [facility] [address] [id number] [address] [place] [address] Aug, [facility] [address] [id number] [address] [place] [id number] 27 Jul, 2018 Labyrinthitis of left ear H8 3.02 [facility] [address] [id number] [address] [place] [id number] 22 Jul, 2018 Labyrinthitis of left ear H8 3.02 [facility] [address] [facility] [id number] [address] [place] [phone] 19 Jul, 2018 Exercise counseling Z71.82 [facility] [address] [facility] [id number] [address] [place] [id number] 18 Jul, 2018 [facility] [address] [facility] [id number] [address] [place] [address] 14 Jul, 2018 Arthritis M19.90 [facility] [address] [facility] [id number] [address] [place] [phone] 13 Jul, 2018 Encounter for Medicare annua l wellness exam Z00.00 ; Chronic kidney disease, stage 4 (severe) N18.4 ; Body mass index (BMI) of 40.0-44.9 in adult Z68.41 ; Hyperparathyroidism E21.3 and BMI 40.0-44.9, adult Z68.41 [facility] [address] [facility] [id number] [address] [place] [phone] 13 Jul, 2018 Encounter for Medicare annua l wellness exam Z00.00 ; Chronic kidney disease, stage 4 (severe) N18.4 ; Hyperparathyroidism E21.3 ; Body mass index (BMI) of 40.0-44.9 in adult Z68.41 and Encounter for immunization Z23 [facility] [address] [facility] [id number] [address] [place] [address] Jul, Tail bone pain M53.3 [facility] [address] [id number] [address] [place] [phone] Jun, Exercise counseling Z71.82 [facility] [address] [id number] [address] [place] [id number] Jun, Labyrinthitis of left ear H8 3.02 [facility] [address] [id number] [address] [place] [id number] Jun, Tail bone pain M53.3 ; Irrit able bowel syndrome with both constipation and diarrhea K58.2 and Dysfunction of left eustachian tube H69.82 [facility] [address] [id number] [address] [place] [address] Jun, Exercise counseling Z71.82 [place] [address] [id number] [address] [place] [address] Jun, Arthritis M19.90 [facility] [address] [id number] [address] [place] [address] Jun, Irritable bowel syndrome wit h both constipation and diarrhea K58.2 ; Tail bone pain M53.3 and Dysfunction of left eustachian tube H69.82 [facility] [address] [id number] [address] [place] [phone] Jun, Exercise counseling Z71.82 [facility] [address] [id number] [address] [place] [address] Jun, Exercise counseling Z71.82 [facility] [address] [id number] [address] [place] [phone] Jun, Labyrinthitis of left ear H8 3.02 [facility] [address] [id number] [address] [place] [phone] May, Exercise counseling Z71.82 [facility] [address] [id number] [address] [place] [address] May, Arthritis M19.90 [facility] [address] [id number] [address] [place] [address] May, Exercise counseling Z71.82 [facility] [address] [id number] [address] [place] [address] May, Exercise counseling Z71.82 [facility] [address] [id number] [address] [place] [address] May, Labyrinthitis of left ear H8 3.02 [facility] [address] [id number] [address] [place] [address] May, Exercise counseling Z71.82 [facility] [address] [id number] [address] [place] [address] Apr, Arthritis M19.90 [facility] [address] [id number] [address] [place] [address] Apr, Exercise counseling Z71.82 [facility] [address] [id number] [address] [place] [address] Apr, Exercise counseling Z71.82 [facility] [address] [id number] [address] [place] [address] Apr, Primary osteoarthritis of le ft knee M17.12 [facility] [address] [id number] [address] [place] [address] Apr, Labyrinthitis of left ear H8 3.02 [facility] [address] [id number] [address] [place] [address] Mar, Arthritis M19.90 [facility] [address] [id number] [address] [place] [phone] Mar, [facility] [address] [id number] [address] [place] [phone] Mar, Chronic kidney disease, stag e 4 (severe) N18.4 [facility] [address] [id number] [address] [place] [phone] Mar, Chronic kidney disease, stag e 4 (severe) N18.4 [facility] [address] [facility] [id number] [address] [place] [address] Mar, Labyrinthitis of left ear H8 3.02 [facility] [address] [place] [id number] [address] [place] [address] Mar, Chronic kidney disease, stag e 4 (severe) N18.4 ; Knee pain, left anterior M25.562 ; Deficiency of other specified B group vitamins E53.8 and Encounter for immunization Z23 [place] [address] [facility] [id number] [address] [place] [phone] Mar, Arthritis M19.90 [facility] [address] [facility] [id number] [address] [place] [address] Feb, Labyrinthitis of left ear H8 3.02 [facility] [address] [place] [id number] [address] [place] [id number] Feb, Arthritis M19.90 [facility] [address] [facility] [id number] [address] [place] [address] Jan, Labyrinthitis of left ear H8 3.02 [facility] [address] [place] [id number] [address] [place] [id number] Jan, Arthritis M19.90 [facility] [address] [facility] [id number] [address] [place] [phone] Dec, Labyrinthitis of left ear H8 3.02 [facility] [address] [facility] [id number] [address] [place] [address] Nov, Arthritis M19.90 [facility] [address] [facility] [id number] [address] [place] [address] Nov, Labyrinthitis of left ear H8 3.02 [facility] [address] [place] [id number] [address] [place] [phone] Nov, BMI 40.0-44.9, adult Z68.41 ; Chronic kidney disease, stage 4 (severe) N18.4 and Acute right-sided thoracic back pain M54.6 [facility] [address] [facility] [id number] [address] [place] [address] October, Labyrinthitis of left ear H8 3.02 and Arthritis M19.90 [facility] [address] [place] [id number] [place] [address] Sep, BPV (benign positional verti go), bilateral H81.13 ; Dysfunction of left eustachian tube H69.82 and BMI 40.0-44.9, adult Z68.41 [place] [address] [place] [id number] [address] [place] [address] Sep, Labyrinthitis of left ear H8 3.02 and Arthritis M19.90 [facility] [address] [place] [id number] [address] [place] [phone] Sep, [facility] [address] [place] [id number] [address] [place] [address] Sep, [facility] [address] [place] [id number] [address] [place] [address] Sep, Chronic kidney disease, stag e 4 (severe) N18.4 [facility] [address] [facility] [id number] [address] [place] [phone] Sep, Chronic kidney disease, stag e 4 (severe) N18.4 [facility] [address] [facility] [id number] [address] [place] [address] Aug, Labyrinthitis of left ear H8 3.02 and Arthritis M19.90 [facility] [address] [facility] [id number] [address] [place] [address] Aug, [facility] [address] [facility] [id number] [address] [place] [address] Jul, [facility] [address] [place] [id number] [address] [place] [address] Jul, Arthritis M19.90 and Labyrin thitis of left ear H83.02 [place] [address] [place] [id number] [address] [place] [phone] Jul, [place] [address] [place] [id number] [address] [place] [address] Jun, [place] [address] [place] [id number] [place] [address] Jun, Arthritis M19.90 and Labyrin thitis of left ear H83.02 [place] [address] [place] [id number] [place] [address] Jun, Pre-op evaluation Z01.818 ; BMI 40.0-44.9, adult Z68.41 and Encounter for immunization Z23 [place] [address] [place] [id number] [address] [place] [address] May, Arthritis M19.90 and Labyrin thitis of left ear H83.02 [place] [address] [place] [id number] [address] [place] [address] Apr, Labyrinthitis of left ear H8 3.02 [place] [address] [place] [id number] [address] [place] [address] 07 Apr, 2017 Arthritis M19.90 and Labyrin thitis of left ear H83.02 [place] [address] [place] [id number] [address] [place] [address] Mar, Arthritis M19.90 and Labyrin thitis of left ear H83.02 [place] [address] [place] [id number] [address] [place] [id number] 05 Mar, 2017 Chronic kidney disease, stag e 4 (severe) N18.4 [place] [address] [place] [id number] [address] [place] [phone] 06 Feb, 2017 Arthritis M19.90 and Labyrin thitis of left ear H83.02 [facility] [address] [id number] [address] [place] [address] Jan, Labyrinthitis of left ear H8 3.02 and Deficiency of other specified B group vitamins E53.8 [facility] [address] [id number] [address] [place] [address] Dec, Arthritis M19.90 [facility] [address] [id number] [address] [place] [address] Dec, BPV (benign positional verti go), bilateral H81.13 [facility] [address] [facility] [id number] [address] [place] [phone] Dec, [facility] [address] [facility] [id number] [address] [place] [phone] Dec, [facility] [address] [facility] [id number] [address] [place] [phone] Dec, [facility] [address] [facility] [id number] [address] [place] [address] Nov, Arthritis M19.90 and Deficie ncy of other specified B group vitamins E53.8 [facility] [address] [facility] [id number] [address] [place] [address] Nov, Arthritis M19.90 [facility] [address] [facility] [id number] [address] [place] [address] Nov, Hyperparathyroidism E21.3 [facility] [address] [facility] [id number] [address] [place] [address] October, [facility] [address] [facility] [id number] [address] [place] [address] October, Hyperparathyroidism E21.3 [facility] [address] [facility] [id number] [address] [place] [address] October, [facility] [address] [facility] [id number] [address] [place] [address] October, Renal insufficiency N28.9 an d Hyperparathyroidism E21.3 [facility] [address] [facility] [id number] [address] [place] [address] October, [facility] [address] [address] October, Renal insufficiency N28.9 an d Hyperparathyroidism E21.3 [facility] [address] [place] [id number] [address] [place] [address] October, Arthritis M19.90 [facility] [address] [place] [id number] [address] [place] [address] Sep, [facility] [address] [address] Sep, Lumbar neuritis M54.16 ; Tho racic abscess J86.9 and Deficiency of other specified B group vitamins E53.8 [facility] [address] [place] [id number] [address] [place] [address] Sep, [facility] [address] [place] [id number] [address] [place] [address] Aug, Arthritis M19.90 [facility] [address] [address] Aug, Hyperparathyroidism E21.3 [facility] [address] [place] [id number] [address] [place] [address] Aug, Hyperparathyroidism E21.3 [facility] [address] [place] [id number] [place] [address] Aug, Arthritis M19.90 [facility] [address] [phone] Jul, Mass of throat R22.1 [facility] [address] [place] [id number] [address] [place] [address] Jul, [facility] [address] [phone] Jul, Arthritis M19.90 [facility] [address] [facility] [id number] [address] [place] [address] Jun, Arthritis M19.90 [facility] [address] [facility] [id number] [address] [place] [address] Jun, [facility] [address] [facility] [id number] [address] [place] [address] Jun, Renal insufficiency N28.9 an d Parathyroid abnormality E21.5 [facility] [address] [facility] [id number] [address] [place] [phone] 05 Jun, 2016 Medicare welcome exam Z00.00 ; Encounter for immunization Z23 ; Arthritis M19.90 ; Medicare annual wellness visit, initial Z00.00 ; Medicare annual wellness visit, subsequent Z00.00 and Deficiency of other specified B group vitamins E53.8 [facility] [address] [facility] [id number] [address] [place] [address] 29 May, 2016 Renal insufficiency N28.9 an d Parathyroid abnormality E21.5 [facility] [address] [facility] [id number] [address] [place] [phone] 19 May, 2016 Renal insufficiency N28.9 [facility] [address] [facility] [id number] [address] [place] [phone] 16 May, 2016 Renal insufficiency N28.9 [facility] [address] [facility] [id number] [address] [place] [id number] 14 May, 2016 [facility] [address] [facility] [id number] [address] [place] [id number] Apr, [facility] [address] [facility] [id number] [address] [place] [phone] Apr, [facility] [address] [facility] [id number] [address] [place] [phone] 14 Apr, 2016 Mass of throat R22.1 [facility] [address] [facility] [id number] [address] [place] [id number] 10 Apr, 2016 [facility] [address] [id number] [address] [place] [phone] 10 Apr, 2016 Mass of throat R22.1 [facility] [address] [facility] [id number] [address] [place] [phone] 04 Apr, 2016 Mass of throat R22.1 [facility] [address] [facility] [id number] [address] [place] [phone] Mar, [facility] [address] [facility] [id number] [address] [place] [phone] Mar, [facility] [address] [facility] [id number] [address] [place] [id number] Mar, [facility] [address] [facility] [id number] [address] [place] [phone] 24 Mar, 2016 Parathyroid abnormality E21. 5 and Encounter for immunization Z23 [facility] [address] [facility] [id number] [address] [place] [id number] 17 Mar, 2016 [facility] [address] [facility] [id number] [address] [place] [phone] Mar, [facility] [address] [facility] [id number] [address] [place] [id number] 21 Feb, 2016 Renal insufficiency N28.9 an d Hyperparathyroidism E21.3 [facility] [address] [facility] [id number] [address] [place] [phone] 19 Feb, 2016 [facility] [address] [facility] [id number] [address] [place] [id number] 15 Feb, 2016 Renal insufficiency N28.9 an d Hyperparathyroidism E21.3 [facility] [address] [facility] [facility] [id number] [address] [place] [address] 14 Feb, 2016 [facility] [address] [facility] [id number] [address] [place] [address] 12 Feb, 2016 [facility] [address] [facility] [id number] [address] [place] [address] Feb, [facility] [address] [facility] [id number] [address] [place] [id number] Jan, [facility] [address] [facility] [id number] [address] [place] [address] Jan, Arthritis M19.90 ; Lumbago w ith sciatica, right side M54.41 and Other chronic pain G89.29 [facility] [address] [facility] [id number] [address] [place] [address] Jan, [facility] [address] [facility] [id number] [address] [place] [address] Dec, Arthritis M19.90 ; Lumbago w ith sciatica, right side M54.41 and Other chronic pain G89.29 [facility] [address] [facility] [id number] [address] [place] [address] Nov, Deficiency of other specifie d B group vitamins E53.8 ; Primary insomnia F51.01 ; Mood disorder F39 and Lumbago with sciatica, right side M54.41 [facility] [address] [facility] [id number] [address] [place] [address] Nov, Hyperparathyroidism E21.3 [place] [address] [facility] [id number] [address] [place] [address] Nov, Unspecified kidney failure N 19 and Hyperparathyroidism E21.3 [facility] [address] [facility] [id number] [address] [place] [address] October, Hyperparathyroidism E21.3 [facility] [address] [facility] [id number] [address] [place] [address] October, [facility] [address] [place] [id number] [address] [place] [address] October, Hyperparathyroidism E21.3 [facility] [address] [facility] [id number] [address] [place] [address] October, Hyperparathyroidism E21.3 [facility] [address] [place] [id number] [address] [place] [address] Sep, Hyperparathyroidism E21.3 ; Hypercholesterolemia E78.0 and Arthritis M19.90 [facility] [address] [place] [id number] [address] [place] [address] Aug, [facility] [address] [facility] [id number] [address] [place] [address] Aug, Deficiency of other specifie d B group vitamins E53.8 [facility] [address] [facility] [id number] [address] [place] [address] Aug, [facility] [address] [place] [id number] [address] [place] [address] Jul, Urinary frequency R35.0 [facility] [address] [place] [id number] [address] [place] [address] Jul, Urinary frequency R35.0 [facility] [address] [address] Jul, [facility] [id number] [place] [address] Jul, [facility] [address] [address] Jun, Pain in left knee M25.562 [facility] [address] [place] [id number] [address] [place] [address] Jun, [facility] [address] [place] [id number] [address] [place] [address] May, Swelling of left knee joint M25.462 [facility] [address] [place] [id number] [address] [place] [address] May, [facility] [address] [place] [id number] [address] [place] [address] May, [facility] [address] [place] [id number] [address] [place] [address] May, [facility] [address] [facility] [id number] [address] [place] [address] Apr, Renal insufficiency N28.9 an d Chronic kidney disease, stage 4 (severe) N18.4 [facility] [address] [facility] [id number] [address] [place] [address] Apr, Unspecified kidney failure N 19 [facility] [address] [facility] [id number] [address] [place] [address] Apr, Unspecified kidney failure N 19 [facility] [address] [facility] [id number] [address] [place] [address] Apr, [facility] [address] [place] [id number] [address] [place] [address] Apr, Hyperparathyroidism, unspeci fied 252.00 [facility] [address] [place] [id number] [address] [place] [address] Apr, [facility] [address] [place] [id number] [address] [place] [address] Mar, [facility] [address] [facility] [id number] [address] [place] [address] Mar, [facility] [address] [place] [id number] [address] [place] [address] Mar, Hyperparathyroidism, unspeci fied 252.00 [facility] [address] [facility] [id number] [address] [place] [address] Feb, [facility] [address] [facility] [id number] [address] [place] [address] Feb, Otalgia 388.70 [facility] [address] [place] [id number] [address] [place] [address] Feb, [facility] [address] [place] [id number] [address] [place] [address] Feb, [facility] [address] [place] [id number] [address] [place] [address] Jan, [facility] [address] [id number] [address] [place] [address] Jan, Hyperparathyroidism, unspeci fied 252.00 [facility] [address] [id number] [address] [place] [address] Jan, [facility] [address] [id number] [address] [place] [address] Jan, Other B-complex deficiencies 266.2 and Hyperparathyroidism, unspecified 252.00 [facility] [address] [id number] [address] [place] [address] Jan, [facility] [address] [id number] [address] [place] [address] Jan, [facility] [address] [id number] [address] [place] [address] Jan, [facility] [address] [id number] [address] [place] [address] Dec, [facility] [address] [id number] [address] [place] [address] Dec, [facility] [address] [id number] [address] [place] [address] Dec, [facility] [address] [id number] [address] [place] [address] Nov, Routine check-up V70.0 and P re-op exam V72.84 [facility] [address] [id number] [address] [place] [address] Nov, [facility] [address] [id number] [address] [place] [address] Nov, [facility] [address] [id number] [address] [place] [address] October, [facility] [address] [id number] [address] [place] [address] October, Other B-complex deficiencies 266.2 [facility] [address] [id number] [address] [place] [address], [place] [address] 12 Oct, 2014 [facility] [address] [id number] [address] [place] [address], [place] [address] 14 Sep, 2014 [facility] [address] [id number] [address] [place] [address], [place] [address] 13 Sep, 2014 [facility] [address] [id number] [address] [place] [address], [place] [address] 20 Aug, 2014 [facility] [address] [id number] [address] [place] [address], [place] [address] 20 Aug, 2014 [facility] [place] [address] [id number] [address] [place] [address], [place] [address] 17 Aug, 2014 [facility] [place] [address] [id number] [address] [place] [address], [place] [address] 17 Aug, 2014 [facility] [place] [address] [id number] [address] [place] [address], [place] [address] 11 Aug, 2014 [facility] [address] [id number] [address] [place] [address], [place] [address] Aug, [facility] [address] [id number] [address] [place] [address], [place] [address] 18 Jul, 2014 [facility] [address] [id number] [address] [place] [address], [place] [address] 18 Jul, 2014 [facility] [place] [address] [id number] [address] [place] [address] 17 Jul, 2014 [facility] [address] [id number] [address] [place] [address], [place] [address] 17 Jul, 2014 [facility] [address] [id number] [address] [place] [address], [place] [address] 12 Jul, 2014 [facility] [place] [address] [id number] [address] [place] [address], [place] [address] 12 Jul, 2014 [facility] [place] [address] [id number] [address] [place] [address] Jul, 2014 [facility] [address] [id number] [address] [place] [address], [place] [address] Jul, 2014 [facility] [address] [id number] [address] [place] [address], [place] [address] Jul, 2014 [facility] [address] [id number] [address] [place] [address], [place] [address] Jul, 2014 [facility] [address] [id number] [address] [place] [address], [place] [address] Jul, 2014 [facility] [address] [id number] [address] [place] [address], [place] [address] Jul, 2014 [facility] [address] [id number] [address] [place] [address], [place] [address] Jul, 2014 [facility] [address] [id number] [address] [place] [address], [place] [address] Jul, [facility] [address] [id number] [address] [place] [address], [place] [address] Jun, [facility] [address] [id number] [address] [place] [address], [place] [address] Jun, [facility] [address] [id number] [address] [place] [id number] Jun, [facility] [place] [facility] [address] [id number] [address] [place] [address], [place] [address] Jun, [facility] [address] [id number] [address] [place] [address] Jun, [facility] [place] [address] [id number] [address] [place] [address], [place] [address] Jun, [facility] [address] [id number] [address] [place] [address], [place] [address] Jun, [facility] [address] [id number] [address] [place] [address], [place] [address] Jun, [facility] [address] [id number] [address] [place] [address], [place] [address] Jun, [facility] [address] [id number] [address] [place] [address], [place] [address] Jun, [facility] [address] [id number] [address] [place] [address], [place] [address] Jun, [facility] [address] [id number] [address] [place] [address], [place] [address] Jun, [facility] [address] [id number] [address] [place] [address], [place] [address] Jun, [facility] [address] [id number] [address] [place] [address], [place] [address] Jun, [facility] [address] [id number] [address] [place] [address], [place] [address] May, [facility] [address] [id number] [address] [place] [address], [place] [address] May, [facility] [address] [id number] [address] [place] [address], [place] [address] May, [facility] [address] [id number] [address] [place] [address], [place] [address] May, [facility] [address] [id number] [address] [place] [address], [place] [address] Apr, [facility] [address] [id number] [address] [place] [address], [place] [address] Apr, [facility] [place] [facility] [address] [id number] [address] [place] [address], [place] [address] Apr, [facility] [place] [facility] [address] [id number] [address] [place] [address], [place] [address] Apr, [facility] [place] [facility] [address] [id number] [address] [place] [address], [place] [address] Apr, [facility] [place] [facility] [address] [id number] [address] [place] [address] Apr, [facility] [place] [facility] [address] [id number] [address] [place] [address], [place] [address] Mar, [facility] [place] [facility] [address] [id number] [address] [place] [address] Mar, [facility] [place] [facility] [address] [id number] [address] [place] [address], [place] [address] Mar, [facility] [place] [facility] [address] [id number] [address] [place] [address], [place] [address] Mar, [facility] [address] [id number] [address] [place] [address], [place] [address] Mar, [facility] [place] [facility] [address] [id number] [address] [place] [address], [place] [address] Mar, [facility] [address] [id number] [address] [place] [address] Mar, [facility] [place] [facility] [address] [id number] [address] [place] [address], [place] [address] Mar, [facility] [place] [facility] [address] [id number] [address] [place] [address], [place] [address] Mar, [facility] [place] [facility] [address] [id number] [address] [place] [address] Mar, [facility] [place] [facility] [address] [id number] [address] [place] [address] Mar, 2013 [facility] [place] [facility] [address] [id number] [address] [place] [address] 07 Mar, 2013 [facility] [place] [facility] [address] [id number] [address] [place] [address] Mar, [facility] [place] [facility] [address] [id number] [address] [place] [address] Feb, 2013 [facility] [place] [facility] [address] [id number] [address] [place] [address] Feb, 2013 [facility] [place] [facility] [address] [id number] [facility] [place] [address] 23 Feb, 2013 [facility] [place] [facility] [address] [id number] [facility] [place] [address] 23 Feb, 2013 [facility] [place] [facility] [address] [id number] [facility] [place] [address] 19 Feb, 2013 [facility] [place] [facility] [address] [id number] [facility] [place] [address] 19 Feb, 2013 [facility] [place] [facility] [address] [id number] [facility] [place] [address] 13 Feb, 2013 [facility] [place] [facility] [address] [id number] [address] [place] [address], [place] [address] 13 Feb, 2013 [facility] [place] [facility] [address] [id number] [address] [place] [address], [place] [address] Feb, [facility] [place] [facility] [address] [id number] [address] [place] [address], [place] [address] Feb, [facility] [address] [id number] [address] [place] [address], [place] [address] Jan, [facility] [place] [facility] [address] [id number] [address] [place] [address], [place] [address] Jan, [facility] [place] [facility] [address] [id number] [address] [place] [address], [place] [address] Dec, [facility] [place] [facility] [address] [id number] [address] [place] [address], [place] [address] Dec, [facility] [place] [facility] [address] [id number] [address] [place] [address], [place] [address] Dec, [facility] [place] [facility] [address] [id number] [address] [place] [address], [place] [address] Dec, [facility] [place] [facility] [address] [id number] [address] [place] [address], [place] [address] Dec, [facility] [place] [facility] [address] [id number] [address] [place] [address], [place] [address] Dec, [facility] [address] [id number] [facility] [place] [address] Nov, [facility] [address] [id number] [facility] [place] [address] Nov, [facility] [address] [id number] [facility] [place] [address] Nov, [facility] [address] [id number] [address] [place] [address], [place] [address] Nov, [facility] [address] [id number] [facility] [place] [address] October, [facility] [address] [id number] [address] [place] [address], [place] [address] October, [facility] [address] [id number] [address] [place] [address], [place] [address] October, [facility] [address] [id number] [address] [place] [address], [place] [address] October, [facility] [address] [id number] [address] [place] [address], [place] [address] October, [facility] [address] [id number] [address] [place] [address], [place] [address] October, [facility] [address] [id number] [address] [place] [address], [place] [address] October, [facility] [place] [address] [id number] [address] [place] [address], [place] [address] October, [facility] [place] [facility] [address] [id number] [address] [place] [address], [place] [address] October, [facility] [place] [facility] [address] [id number] [address] [place] [address], [place] [address] October, [facility] [place] [facility] [address] [id number] [address] [place] [address], [place] [address] October, [facility] [address] [id number] [address] [address] October, [facility] [address] [id number] [address] [place] [address], [place] [address] October, [facility] [address] [id number] [address] [place] [address], [place] [address] October, [facility] [address] [id number] [address] [place] [address], [place] [address] October, [facility] [address] [id number] [address] [place] [address], [place] [address] October, [facility] [address] [id number] [address] [place] [address], [place] [address] Sep, [facility] [address] [id number] [address] [place] [address], [place] [address] Sep, [facility] [address] [id number] [address] [place] [address], [place] [address] Sep, [facility] [address] [id number] [address] [place] [address], [place] [address] Sep, [facility] [address] [id number] [address] [place] [address], [place] [address] Sep, [facility] [address] [id number] [address] [place] [address], [place] [address] Sep, [facility] [address] [id number] [address] [place] [address], [place] [address] Aug, [facility] [address] [id number] [address] [place] [address], [place] [address] Aug, [facility] [address] [id number] [address] [place] [address], [place] [address] Aug, [facility] [address] [id number] [address] [place] [address], [place] [address] Aug, [facility] [address] [id number] [address] [place] [address], [place] [address] Aug, [facility] [address] [id number] [address] [place] [address], [place] [address] Aug, [facility] [address] [id number] [address] [place] [address], [place] [address] Jul, [facility] [address] [id number] [address] [place] [address], [place] [address] Jul, [facility] [address] [id number] [address] [place] [address], [place] [address] Jul, [facility] [address] [id number] [address] [place] [address], [place] [address] Jul, [facility] [address] [id number] [address] [place] [address], [place] [address] Jun, [facility] [address] [id number] [address] [place] [address], [place] [address] Jun, [facility] [address] [id number] [address] [place] [address], [place] [address] May, [facility] [address] [id number] [address] [place] [address], [place] [address] May, [facility] [address] [id number] [address] [place] [address], [place] [address] May, [facility] [address] [id number] [address] [place] [address], [place] [address] May, [facility] [address] [id number] [address] [place] [address] May, [facility] [address] [id number] [address] [place] [address], [place] [address] Apr, [facility] [address] [id number] [address] [place] [address], [place] [address] Apr, [facility] [address] [id number] [address] [place] [address], [place] [address] Apr, [facility] [address] [id number] [address] [place] [address] Apr, [facility] [address] [id number] [address] [place] [address], [place] [address] Apr, [facility] [address] [id number] [address] [place] [address] 04 Apr, 2013 [facility] [address] [id number] [address] [place] [address], [place] [address] 15 Mar, 2013 [facility] [address] [id number] [address] [place] [address], [place] [address] 15 Mar, 2013 [facility] [address] [id number] [address] [place] [address], [place] [address] 14 Mar, 2013 [facility] [address] [id number] [address] [place] [address], [place] [address] 14 Mar, 2013 [facility] [address] [id number] [address] [place] [address] Mar, [facility] [address] [id number] [address] [place] [address], [place] [address] Mar, [facility] [address] [id number] [address] [place] [address], [place] [address] 23 Feb, 2013 [facility] [address] [id number] [address] [place] [address], [place] [address] 19 Feb, 2013 [facility] [address] [id number] [address] [place] [address], [place] [address] 04 Feb, 2013 [facility] [address] [id number] [address] [place] [address] 30 Jan, 2013 [facility] [address] [id number] [address] [place] [address], [place] [address] Jan, [facility] [address] [id number] [address] [place] [address], [place] [address] Jan, [facility] [address] [id number] [address] [place] [address], [place] [address] 16 Jan, 2013 [facility] [address] [id number] [address] [place] [address], [place] [id number] Jan, [facility] [address] [id number] [address] [place] [address], [place] [address] Jan, [facility] [address] [id number] [address] [place] [address], [place] [address] Dec, [facility] [address] [id number] [address] [place] [address], [place] [address] Dec, [facility] [address] [id number] [address] [place] [address], [place] [address] Dec, [facility] [address] [id number] [address] [place] [address], [place] [address] Dec, [facility] [address] [id number] [address] [place] [address], [place] [address] Dec, [facility] [address] [id number] [address] [place] [address], [place] [address] Dec, [facility] [address] [id number] [address] [place] [address], [place] [address] Nov, [facility] [address] [id number] [address] [place] [address], [place] [address] Nov, [facility] [address] [id number] [address] [place] [address], [place] [address] Nov, [facility] [address] [id number] [address] [place] [address], [place] [address] Nov, [facility] [address] [id number] [address] [place] [address], [place] [address] Nov, [facility] [address] [id number] [address] [place] [address], [place] [address] Nov, [facility] [address] [id number] [address] [place] [address], [place] [address] October, [facility] [address] [id number] [address] [place] [address], [place] [address] October, [facility] [address] [id number] [address] [place] [address], [place] [address] October, [facility] [address] [id number] [address] [place] [address], [place] [address] October, [facility] [address] [id number] [address] [place] [address], [place] [address] October, [facility] [address] [id number] [address] [place] [address], [place] [address] Sep, [facility] [address] [id number] [address] [place] [address], [place] [address] Sep, [facility] [address] [id number] [address] [place] [address], [place] [address] Sep, [facility] [address] [id number] [address] [place] [address], [place] [address] Sep, [facility] [address] [id number] [address] [place] [address], [place] [address] Sep, [facility] [address] [id number] [address] [place] [address], [place] [address] Aug, [facility] [address] [id number] [address] [place] [address], [place] [address] Aug, [facility] [address] [id number] [address] [place] [address], [place] [address] Aug, [facility] [address] [id number] [address] [place] [address], [place] [address] Jul, [facility] [address] [id number] [address] [place] [address], [place] [address] Jul, [facility] [address] [id number] [address] [place] [address], [place] [address] Jul, [facility] [address] [id number] [address] [place] [address], [place] [address] 08 Jul, 2012 [facility] [address] [id number] [address] [place] [address], [place] [address] Jul, [facility] [address] [id number] [address] [place] [address], [place] [address] Jul, [facility] [address] [id number] [address] [place] [address], [place] [address] Jun, [facility] [address] [id number] [address] [place] [address], [place] [address] Apr, [facility] [address] [id number] [address] [place] [address], [place] [address] Apr, [facility] [address] [id number] [address] [place] [address], [place] [address] Apr, [facility] [address] [id number] [address] [place] [address], [place] [address] Apr, [facility] [address] [id number] [address] [place] [address], [place] [address] Mar, [facility] [address] [id number] [address] [place] [address], [place] [address] Mar, [facility] [address] [id number] [address] [place] [address], [place] [address] Mar, [facility] [address] [id number] [address] [place] [address], [place] [address] Mar, [facility] [address] [id number] [address] [place] [address], [place] [address] Mar, [facility] [address] [id number] [address] [place] [address], [place] [address] Feb, [facility] [address] [id number] [address] [place] [address], [place] [address] Jan, [facility] [address] [id number] [address] [place] [address], [place] [address] Jan, [facility] [address] [id number] [address] [place] [address], [place] [address] Jan, [facility] [address] [id number] [address] [place] [address] Dec, [facility] [address] [id number] [address] [place] [address] Nov, [facility] [address] [id number] [address] [place] [address] Nov, [facility] [address] [id number] [address] [place] [address] Nov, [facility] [address] [id number] [address] [place] [address] Nov, [facility] [address] [id number] [address] [place] [address] Nov, [facility] [address] [id number] [address] [place] [address] October, [facility] [address] [id number] [address] [place] [address] October, [facility] [address] [id number] [address] [place] [address] October, [facility] [address] [id number] [address] [place] [address] October, [facility] [address] [id number] [address] [place] [address] October, IMMUNIZATIONS No Known Immunizations SOCIAL HISTORY Never Assessed REASON FOR VISIT PLAN OF CARE VITAL SIGNS Height 66 in 2011-12-16 Weight 284.5 lbs 2011-12-16 Temperature 98.3 degrees Fahrenheit 2011-12-16 Heart Rate 80 bpm 2011-12-16 Respiratory Rate 20 2011-12-16 Blood pressure systolic 128 mmHg 2011-12-16 Blood pressure diastolic 88 mmHg 2011-12-16 MEDICATIONS Unknown Medications RESULTS No Results PROCEDURES Procedure Date Ordered Result Body Site RENAL FUNCTION PANEL December 16, 2011 VENIPUNCT, ROUTINE* December 16, 2011 INSTRUCTIONS MEDICATIONS ADMINISTERED No Known Medications MEDICAL [...]
--- OUTSIDE RECORDS SUMMARY | 2020-01-25 08:21 | XMS REPORT ---
Author Author Velma CORDERO Organization [facility] Address [address] [place] [address] Care Team Providers Care [employer] Developer Name Role Phone STEPHAN CORDERO Unavailable PROBLEMS Type Condition ICD9-CM Code [id number] Code Onset Dates Condition S tatus SNOMED Code Problem Corns L84 Active 853963858 Problem Primary insomnia F51.01 Active 397 2004 Problem Hyperparathyroidism E21.3 Active 58292586 Problem Hypercholesteremia E78.0 Active 1 9202800 Problem Mood disorder F39 Active 584385 05 Problem Arthritis M19.90 Active 9200151 Problem 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 Active 10549571 Problem Myalgia M79.1 Active 13097475 Problem Chronic kidney disease, stage 4 (severe) N18.4 Active 651241295 Problem Primary osteoarthritis of left knee M17.12 Active [id number] Problem Irritable bowel syndrome with both constipation and diarrh ea K58.2 Active 17778209 Problem Other chronic pain G89.29 Active 8 6383504 Problem BPV (benign positional vertigo), bilateral H81.13 Active 339070070 Problem Hyperparathyroidism, unspecified E21.3 Active 09732355 Problem 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 Active 21733961 Problem Body mass index (BMI) of 40.0-44.9 in adult Z68.41 Active 239487858 Problem Unspecified kidney failure N19 Act chip 75901085 Problem 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 Active 442650064 Problem Unspecified inflammatory spo ndylopathy, sacral and sacrococcygeal region M46.98 Active 95923871 ALLERGIES No Information ENCOUNTERS Encounter Location Date Diagnosis [facility] [address] [facility] [id number] [address] [place] [id number] Sep, Hyperparathyroidism, unspeci fied E21.3 [facility] [address] [facility] [id number] [address] [place] [id number] Aug, Hyperparathyroidism, unspeci fied E21.3 [place] [address] [id number] [address] [place] [phone] Aug, Pain in left knee M25.562 ; Other chronic pain G89.29 ; Unspecified inflammatory spondylopathy, sacral and sacrococcygeal region M46.98 ; Chronic kidney disease, stage 4 (severe) N18.4 and Hyperparathyroidism, unspecified E21.3 [place] [address] [id number] [address] [place] [id number] Jul, [place] [address] [id number] [address] [place] [id number] Jul, Arthritis M19.90 [place] [address] [facility] [id number] [address] [place] [id number] Jun, Knee pain, left M25.562 [place] [address] [id number] [address] [place] [id number] May, Arthritis M19.90 [place] [address] [facility] [id number] [address] [place] [id number] Apr, Well woman exam without gyne cological exam Z00.00 and Screening for breast cancer Z12.39 [place] [address] [facility] [id number] [address] [place] [id number] Mar, Arthritis M19.90 [place] [address] [id number] [address] [place] [id number] Mar, Arthritis M19.90 [place] [address] [id number] [address] [place] [id number] Mar, [place] [address] [facility] [id number] [address] [place] [id number] Mar, Arthritis M19.90 and Encount er for immunization Z23 [place] [address] [facility] [id number] [address] [place] [id number] Feb, Arthritis M19.90 [facility] [address] [id number] [address] [place] [id number] Feb, [facility] [address] [id number] [address] [place] [id number] Feb, Other specified disorders of bone density and structure, unspecified site M85.80 [facility] [address] [id number] [address] [place] [id number] Jan, Arthritis M19.90 [facility] [address] [id number] [address] [place] [id number] Dec, Arthritis M19.90 [facility] [address] [id number] [address] [place] [id number] Nov, Inflammatory spondylopathy o f sacral region M46.98 [facility] [address] [id number] [address] [place] [id number] Nov, [facility] [address] [facility] [id number] [address] [place] [id number] Nov, Labyrinthitis of left ear H8 3.02 [facility] [address] [facility] [id number] [address] [place] [id number] Nov, Arthritis M19.90 [facility] [address] [facility] [id number] [address] [place] [id number] 15 Sep, 2018 Arthritis M19.90 [facility] [address] [facility] [id number] [address] [place] [phone] Sep, Renal insufficiency N28.9 an d Unspecified kidney failure N19 [facility] [address] [id number] [address] [place] [address] Sep, Renal insufficiency N28.9 an d Unspecified kidney failure N19 [facility] [address] [facility] [id number] [address] [place] [id number] Sep, Arthritis M19.90 [facility] [address] [facility] [id number] [address] [place] [id number] 18 Aug, 2018 Exercise counseling Z71.82 [facility] [address] [id number] [address] [place] [id number] 08 Aug, 2018 [facility] [address] [facility] [id number] [address] [place] [id number] 27 Jul, 2018 Labyrinthitis of left ear H8 3.02 [facility] [address] [facility] [id number] [address] [place] [id number] 22 Jul, 2018 Labyrinthitis of left ear H8 3.02 [facility] [address] [id number] [address] [place] [id number] 19 Jul, 2018 Exercise counseling Z71.82 [place] [id number] [facility] [id number] [address] [place] [id number] 18 Jul, 2018 [place] [address] [facility] [id number] [address] [place] [id number] 14 Jul, 2018 Arthritis M19.90 [place] [id number] [facility] [id number] [address] [place] [id number] 13 Jul, 2018 Encounter for Medicare annua l wellness exam Z00.00 ; Chronic kidney disease, stage 4 (severe) N18.4 ; Body mass index (BMI) of 40.0-44.9 in adult Z68.41 ; Hyperparathyroidism E21.3 and BMI 40.0-44.9, adult Z68.41 [place] [address] [facility] [id number] [address] [place] [id number] 13 Jul, 2018 Encounter for Medicare annua l wellness exam Z00.00 ; Chronic kidney disease, stage 4 (severe) N18.4 ; Hyperparathyroidism E21.3 ; Body mass index (BMI) of 40.0-44.9 in adult Z68.41 and Encounter for immunization Z23 [facility] [address] [facility] [id number] [address] [place] [id number] 11 Jul, 2018 Tail bone pain M53.3 [facility] [address] [facility] [id number] [address] [place] [id number] Jun, Exercise counseling Z71.82 [facility] [address] [id number] [address] [place] [id number] Jun, Labyrinthitis of left ear H8 3.02 [facility] [address] [id number] [address] [place] [phone] Jun, Tail bone pain M53.3 ; Irrit able bowel syndrome with both constipation and diarrhea K58.2 and Dysfunction of left eustachian tube H69.82 [facility] [address] [id number] [address] [place] [phone] Jun, Exercise counseling Z71.82 [facility] [address] [id number] [address] [place] [phone] Jun, Arthritis M19.90 [facility] [address] [id number] [address] [place] [id number] Jun, Irritable bowel syndrome wit h both constipation and diarrhea K58.2 ; Tail bone pain M53.3 and Dysfunction of left eustachian tube H69.82 [facility] [address] [id number] [address] [place] [address] Jun, Exercise counseling Z71.82 [facility] [address] [id number] [address] [place] [id number] Jun, Exercise counseling Z71.82 [facility] [address] [id number] [address] [place] [address] Jun, Labyrinthitis of left ear H8 3.02 [facility] [address] [id number] [address] [place] [address] May, Exercise counseling Z71.82 [facility] [address] [id number] [address] [place] [address] May, Arthritis M19.90 [facility] [address] [id number] [address] [place] [address] May, Exercise counseling Z71.82 [facility] [address] [id number] [address] [place] [phone] May, Exercise counseling Z71.82 [facility] [address] [id number] [address] [place] [phone] May, Labyrinthitis of left ear H8 3.02 [facility] [address] [id number] [address] [place] [id number] May, Exercise counseling Z71.82 [facility] [address] [id number] [address] [place] [address] Apr, Arthritis M19.90 [facility] [address] [id number] [address] [place] [phone] Apr, Exercise counseling Z71.82 [facility] [address] [id number] [address] [place] [address] Apr, Exercise counseling Z71.82 [facility] [address] [id number] [address] [place] [id number] Apr, Primary osteoarthritis of le ft knee M17.12 [facility] [address] [id number] [address] [place] [id number] 08 Apr, 2018 Labyrinthitis of left ear H8 3.02 [facility] [address] [id number] [address] [place] [id number] 30 Mar, 2018 Arthritis M19.90 [facility] [address] [id number] [address] [place] [id number] Mar, [facility] [address] [id number] [address] [place] [id number] Mar, Chronic kidney disease, stag e 4 (severe) N18.4 [facility] [address] [id number] [address] [place] [id number] 15 Mar, 2018 Chronic kidney disease, stag e 4 (severe) N18.4 [facility] [address] [id number] Mar, Labyrinthitis of left ear H8 3.02 [place] [address] [id number] Mar, Chronic kidney disease, stag e 4 (severe) N18.4 ; Knee pain, left anterior M25.562 ; Deficiency of other specified B group vitamins E53.8 and Encounter for immunization Z23 [place] [address] [address] Mar, Arthritis M19.90 [place] [address] [address] Feb, Labyrinthitis of left ear H8 3.02 [place] [address] [id number] Feb, Arthritis M19.90 [place] [address] [id number] Jan, Labyrinthitis of left ear H8 3.02 [place] [address] [address] Jan, Arthritis M19.90 [place] [address] [address] Dec, Labyrinthitis of left ear H8 3.02 [place] [address] [address] Nov, Arthritis M19.90 [place] [address] [place] [id number] [place] [phone] Nov, Labyrinthitis of left ear H8 3.02 [place] [address] [place] [id number] [place] [id number] Nov, BMI 40.0-44.9, adult Z68.41 ; Chronic kidney disease, stage 4 (severe) N18.4 and Acute right-sided thoracic back pain M54.6 [facility] [address] [id number] [address] [place] [id number] October, Labyrinthitis of left ear H8 3.02 and Arthritis M19.90 [facility] [address] [facility] [id number] [address] [place] [phone] Sep, BPV (benign positional verti go), bilateral H81.13 ; Dysfunction of left eustachian tube H69.82 and BMI 40.0-44.9, adult Z68.41 [facility] [address] [facility] [id number] [address] [place] [id number] Sep, Labyrinthitis of left ear H8 3.02 and Arthritis M19.90 [facility] [address] [facility] [id number] [address] [place] [id number] Sep, [place] [address] [place] [id number] [address] [place] [id number] Sep, [facility] [address] [facility] [id number] [address] [place] [id number] Sep, Chronic kidney disease, stag e 4 (severe) N18.4 [place] [address] [facility] [id number] [address] [place] [id number] Sep, Chronic kidney disease, stag e 4 (severe) N18.4 [place] [id number] [facility] [id number] [address] [place] [id number] Aug, Labyrinthitis of left ear H8 3.02 and Arthritis M19.90 [facility] [address] [id number] [address] [place] [id number] Aug, [facility] [address] [facility] [id number] [address] [place] [id number] Jul, [facility] [address] [facility] [id number] [address] [place] [id number] Jul, Arthritis M19.90 and Labyrin thitis of left ear H83.02 [place] [address] [facility] [id number] [address] [place] [id number] Jul, [place] [address] [place] [id number] [place] [id number] Jun, [place] [address] [place] [id number] [address] [place] [id number] Jun, Arthritis M19.90 and Labyrin thitis of left ear H83.02 [place] [address] [address] Jun, Pre-op evaluation Z01.818 ; BMI 40.0-44.9, adult Z68.41 and Encounter for immunization Z23 [place] [address] [place] [id number] [place] [address] May, Arthritis M19.90 and Labyrin thitis of left ear H83.02 [place] [address] [address] Apr, Labyrinthitis of left ear H8 3.02 [place] [address] [address] Apr, Arthritis M19.90 and Labyrin thitis of left ear H83.02 [place] [address] [place] [id number] [place] [address] Mar, Arthritis M19.90 and Labyrin thitis of left ear H83.02 [place] [address] [place] [id number] [address] [place] [id number] Mar, Chronic kidney disease, stag e 4 (severe) N18.4 [place] [address] [place] [id number] [address] [place] [id number] 06 Feb, 2017 Arthritis M19.90 and Labyrin thitis of left ear H83.02 [place] [address] [place] [id number] [address] [place] [phone] Jan, Labyrinthitis of left ear H8 3.02 and Deficiency of other specified B group vitamins E53.8 [facility] [address] [id number] [address] [place] [id number] Dec, Arthritis M19.90 [facility] [address] [id number] [address] [place] [address] Dec, BPV (benign positional verti go), bilateral H81.13 [facility] [address] [id number] [address] [place] [phone] Dec, [facility] [address] [id number] [address] [place] [phone] Dec, [facility] [address] [id number] [address] [place] [id number] Dec, [facility] [address] [facility] [id number] [address] [place] [id number] Nov, Arthritis M19.90 and Deficie ncy of other specified B group vitamins E53.8 [facility] [address] [id number] [address] [place] [id number] Nov, Arthritis M19.90 [facility] [address] [id number] [address] [place] [id number] Nov, Hyperparathyroidism E21.3 [facility] [address] [facility] [id number] [address] [place] [id number] October, [facility] [address] [facility] [id number] [address] [place] [id number] October, Hyperparathyroidism E21.3 [facility] [address] [id number] [address] [place] [id number] October, [facility] [address] [facility] [id number] [address] [place] [id number] October, Renal insufficiency N28.9 an d Hyperparathyroidism E21.3 [facility] [address] [facility] [id number] [address] [place] [id number] October, [facility] [address] [place] [id number] [address] [place] [id number] October, Renal insufficiency N28.9 an d Hyperparathyroidism E21.3 [facility] [address] [place] [id number] [address] [place] [id number] October, Arthritis M19.90 [facility] [address] [id number] Sep, [facility] [address] [id number] Sep, Lumbar neuritis M54.16 ; Tho racic abscess J86.9 and Deficiency of other specified B group vitamins E53.8 [facility] [address] [place] [id number] [address] [place] [address] Sep, [facility] [address] [address] Aug, Arthritis M19.90 [facility] [address] [place] [id number] [address] [place] [address] Aug, Hyperparathyroidism E21.3 [facility] [address] [address] Aug, Hyperparathyroidism E21.3 [facility] [address] [address] Aug, Arthritis M19.90 [facility] [address] [place] [id number] [address] [place] [address] Jul, Mass of throat R22.1 [facility] [address] [address] Jul, [facility] [address] [place] [id number] [address] [place] [address] Jul, Arthritis M19.90 [facility] [address] [place] [id number] [address] [place] [address] Jun, Arthritis M19.90 [facility] [address] [facility] [id number] [address] [place] [id number] Jun, [facility] [address] [facility] [id number] [address] [place] [phone] Jun, Renal insufficiency N28.9 an d Parathyroid abnormality E21.5 [facility] [address] [facility] [id number] [address] [place] [id number] 05 Jun, 2016 Medicare welcome exam Z00.00 ; Encounter for immunization Z23 ; Arthritis M19.90 ; Medicare annual wellness visit, initial Z00.00 ; Medicare annual wellness visit, subsequent Z00.00 and Deficiency of other specified B group vitamins E53.8 [facility] [address] [facility] [id number] [address] [place] [id number] 29 May, 2016 Renal insufficiency N28.9 an d Parathyroid abnormality E21.5 [facility] [address] [facility] [id number] [address] [place] [phone] May, Renal insufficiency N28.9 [facility] [address] [facility] [id number] [address] [place] [id number] May, Renal insufficiency N28.9 [facility] [address] [facility] [id number] [address] [place] [id number] 14 May, 2016 [facility] [address] [facility] [id number] [address] [place] [phone] Apr, [facility] [address] [facility] [id number] [address] [place] [id number] 16 Apr, 2016 [facility] [address] [facility] [id number] [address] [place] [id number] 14 Apr, 2016 Mass of throat R22.1 [facility] [address] [facility] [id number] [address] [place] [id number] 10 Apr, 2016 [facility] [address] [facility] [id number] [address] [place] [id number] 10 Apr, 2016 Mass of throat R22.1 [facility] [address] [id number] [address] [place] [id number] 04 Apr, 2016 Mass of throat R22.1 [facility] [address] [id number] [address] [place] [phone] Mar, [facility] [address] [facility] [id number] [address] [place] [id number] Mar, [facility] [address] [id number] [address] [place] [phone] Mar, [facility] [address] [facility] [id number] [address] [place] [id number] 24 Mar, 2016 Parathyroid abnormality E21. 5 and Encounter for immunization Z23 [facility] [address] [facility] [id number] [address] [place] [id number] 17 Mar, 2016 [facility] [address] [facility] [id number] [address] [place] [id number] Mar, [facility] [address] [facility] [id number] [address] [place] [phone] 21 Feb, 2016 Renal insufficiency N28.9 an d Hyperparathyroidism E21.3 [facility] [address] [id number] [address] [place] [phone] 19 Feb, 2016 [facility] [address] [facility] [id number] [address] [place] [id number] 15 Feb, 2016 Renal insufficiency N28.9 an d Hyperparathyroidism E21.3 [facility] [address] [id number] [address] [place] [id number] 14 Feb, 2016 [facility] [address] [id number] [address] [place] [phone] 12 Feb, 2016 [facility] [address] [facility] [id number] [address] [place] [phone] 09 Feb, 2016 [facility] [address] [facility] [id number] [address] [place] [phone] Jan, [facility] [address] [facility] [id number] [address] [place] [phone] Jan, Arthritis M19.90 ; Lumbago w ith sciatica, right side M54.41 and Other chronic pain G89.29 [facility] [address] [facility] [id number] [address] [place] [id number] Jan, [facility] [address] [facility] [id number] 21 [place] [address] Dec, Arthritis M19.90 ; Lumbago w ith sciatica, right side M54.41 and Other chronic pain G89.29 [place] [address] [place] [id number] [address] [place] [address] 16 Nov, 2015 Deficiency of other specifie d B group vitamins E53.8 ; Primary insomnia F51.01 ; Mood disorder F39 and Lumbago with sciatica, right side M54.41 [place] [address] [place] [id number] [address] [place] [address] Nov, Hyperparathyroidism E21.3 [place] [address] [place] [id number] [address] [place] [address] Nov, Unspecified kidney failure N 19 and Hyperparathyroidism E21.3 [place] [address] [place] [id number] [address] [place] [address] October, Hyperparathyroidism E21.3 [place] [address] [place] [id number] [address] [place] [address] October, [facility] [address] [id number] [address] [place] [address] October, Hyperparathyroidism E21.3 [place] [address] [place] [id number] [address] [place] [address] October, Hyperparathyroidism E21.3 [facility] [address] [facility] [id number] [address] [place] [address] Sep, Hyperparathyroidism E21.3 ; Hypercholesterolemia E78.0 and Arthritis M19.90 [place] [address] [place] [id number] [address] [place] [address] Aug, [facility] [address] [facility] [id number] [address] [place] [address] Aug, Deficiency of other specifie d B group vitamins E53.8 [facility] [address] [facility] [id number] [address] [place] [address] Aug, [facility] [address] [id number] [place] [phone] Jul, Urinary frequency R35.0 [facility] [address] [facility] [id number] [address] [place] [address] Jul, Urinary frequency R35.0 [facility] [address] [facility] [id number] [address] [place] [address] Jul, [facility] [id number] [place] [address] Jul, [facility] [address] [facility] [id number] [address] [place] [address] Jun, Pain in left knee M25.562 [facility] [address] [id number] [address] [place] [address] Jun, [facility] [address] [id number] [address] [place] [address] May, Swelling of left knee joint M25.462 [facility] [address] [facility] [id number] [address] [place] [address] May, [facility] [address] [facility] [id number] [address] [place] [address] May, [facility] [address] [place] [address] [id number] [address] [place] [address] May, [facility] [address] [facility] [id number] [address] [place] [address] Apr, Renal insufficiency N28.9 an d Chronic kidney disease, stage 4 (severe) N18.4 [facility] [address] [facility] [id number] [address] [place] [address] Apr, Unspecified kidney failure N 19 [facility] [address] [facility] [id number] [address] [place] [address] Apr, Unspecified kidney failure N 19 [facility] [address] [facility] [id number] [address] [place] [address] Apr, [facility] [address] [facility] [id number] [address] [place] [address] Apr, Hyperparathyroidism, unspeci fied 252.00 [facility] [address] [facility] [id number] [address] [place] [address] Apr, [facility] [address] [facility] [id number] [address] [place] [address] Mar, [facility] [address] [facility] [id number] [address] [place] [address] Mar, [facility] [address] [facility] [id number] [address] [place] [address] Mar, Hyperparathyroidism, unspeci fied 252.00 [facility] [address] [facility] [id number] [address] [place] [address] Feb, [facility] [address] [facility] [id number] [address] [place] [address] Feb, Otalgia 388.70 [facility] [address] [facility] [id number] [address] [place] [address] Feb, [facility] [address] [facility] [id number] [address] [place] [id number] Feb, [facility] [address] [facility] [id number] [address] [place] [id number] Jan, [facility] [address] [facility] [id number] [address] [place] [address] Jan, Hyperparathyroidism, unspeci fied 252.00 [facility] [address] [id number] [address] [place] [address] Jan, [facility] [address] [id number] [address] [place] [address] Jan, Other B-complex deficiencies 266.2 and Hyperparathyroidism, unspecified 252.00 [facility] [address] [id number] [address] [place] [address] Jan, [facility] [address] [id number] [address] [place] [phone] Jan, [facility] [address] [id number] [address] [place] [address] Jan, [facility] [address] [id number] [address] [place] [id number] Dec, [facility] [address] [id number] [address] [place] [phone] Dec, [facility] [address] [id number] [address] [place] [address] Dec, [facility] [address] [id number] [address] [place] [address] Nov, Routine check-up V70.0 and P re-op exam V72.84 [facility] [address] [id number] [address] [place] [id number] Nov, [facility] [address] [id number] [address] [place] [address] Nov, [facility] [address] [id number] [address] [place] [address] October, [facility] [address] [id number] [address] [place] [address] October, Other B-complex deficiencies 266.2 [facility] [address] [id number] [address] [place] [address] October, [facility] [address] [id number] [address] [place] [address], [place] [address] 14 Sep, 2014 [facility] [address] [id number] [address] [place] [address], [place] [address] 13 Sep, 2014 [facility] [address] [id number] [address] [place] [address], [place] [address] 20 Aug, 2014 [facility] [address] [id number] [address] [place] [address], [place] [address] 20 Aug, 2014 [facility] [address] [id number] [address] [place] [address], [place] [address] 17 Aug, 2014 [facility] [address] [id number] [address] [place] [address], [place] [address] 17 Aug, 2014 [facility] [address] [id number] [address] [place] [address], [place] [address] 11 Aug, 2014 [facility] [address] [id number] [address] [place] [address], [place] [address] 11 Aug, 2014 [facility] [address] [id number] [address] [place] [address], [place] [address] 18 Jul, 2014 [facility] [address] [id number] [address] [place] [address], [place] [address] 18 Jul, 2014 [facility] [address] [id number] [address] [place] [address], [place] [address] 17 Jul, 2014 [facility] [address] [id number] [address] [place] [address], [place] [address] 17 Jul, 2014 [facility] [address] [id number] [address] [place] [address], [place] [address] 12 Jul, 2014 [facility] [address] [id number] [address] [place] [address], [place] [address] 12 Jul, 2014 [facility] [address] [id number] [address] [place] [address], [place] [address] 10 Jul, 2014 [facility] [address] [id number] [address] [place] [address], [place] [address] Jul, [facility] [address] [id number] [address] [place] [address], [place] [address] Jul, [facility] [address] [id number] [address] [place] [address], [place] [address] Jul, [facility] [address] [id number] [address] [place] [address], [place] [address] Jul, 2014 [facility] [address] [id number] [address] [place] [address], [place] [address] Jul, 2014 [facility] [address] [id number] [address] [place] [address], [place] [address] Jul, [facility] [address] [id number] [address] [place] [address], [place] [address] Jul, [facility] [address] [id number] [address] [place] [address], [place] [address] Jun, [facility] [address] [id number] [address] [place] [address], [place] [address] Jun, [facility] [address] [id number] [address] [place] [address], [place] [address] Jun, [facility] [address] [id number] [address] [place] [address], [place] [address] Jun, [facility] [address] [id number] [address] [place] [address], [place] [address] Jun, [facility] [address] [id number] [address] [place] [address], [place] [address] Jun, [facility] [address] [id number] [address] [place] [address], [place] [address] Jun, [facility] [address] [id number] [address] [place] [address], [place] [address] Jun, [facility] [address] [id number] [address] [place] [address], [place] [address] Jun, [facility] [address] [id number] [address] [place] [address], [place] [address] Jun, [facility] [address] [id number] [address] [place] [address], [place] [address] Jun, [facility] [address] [id number] [address] [place] [address], [place] [address] Jun, [facility] [address] [id number] [address] [place] [address], [place] [address] Jun, [facility] [address] [id number] [address] [place] [address], [place] [address] Jun, [facility] [address] [id number] [address] [place] [address], [place] [address] May, [facility] [address] [id number] [address] [place] [address], [place] [address] May, [facility] [address] [id number] [address] [place] [address], [place] [address] May, [facility] [address] [id number] [address] [place] [address], [place] [address] May, [facility] [address] [id number] [address] [place] [address], [place] [address] Apr, [facility] [address] [id number] [address] [place] [address], [place] [address] Apr, [facility] [address] [id number] [address] [place] [address], [place] [address] Apr, [facility] [address] [id number] [address] [place] [address], [place] [address] Apr, [facility] [address] [id number] [address] [place] [address], [place] [address] Apr, [facility] [address] [id number] [address] [place] [address], [place] [address] Apr, [facility] [address] [id number] [address] [place] [address], [place] [address] Mar, [facility] [address] [id number] [address] [place] [address], [place] [address] 24 Mar, 2014 [facility] [address] [id number] [address] [place] [address], [place] [address] Mar, [facility] [address] [id number] [address] [place] [address], [place] [address] Mar, [facility] [address] [id number] [address] [place] [address], [place] [address] 15 Mar, 2014 [facility] [address] [id number] [address] [place] [address], [place] [address] 15 Mar, 2014 [facility] [address] [id number] [address] [place] [address], [place] [address] Mar, [facility] [address] [id number] [address] [place] [address], [place] [address] Mar, [facility] [address] [id number] [address] [place] [address], [place] [address] Mar, [facility] [address] [id number] [address] [place] [address], [place] [address] 07 Mar, 2014 [facility] [address] [id number] [address] [place] [address] 07 Mar, 2014 [facility] [address] [id number] [address] [place] [address], [place] [address] 07 Mar, 2014 [facility] [address] [id number] [address] [place] [address] 06 Mar, 2014 [facility] [address] [id number] [address] [place] [address], [place] [address] Feb, [facility] [address] [id number] [address] [place] [address], [place] [address] Feb, [facility] [address] [id number] [address] [place] [address], [place] [address] 23 Feb, 2014 [facility] [address] [id number] [address] [place] [address], [place] [address] 23 Feb, 2014 [facility] [address] [id number] [facility] [place] [address] 19 Feb, 2014 [facility] [address] [id number] [address] [place] [address], [place] [address] 19 Feb, 2014 [facility] [address] [id number] [address] [place] [address], [place] [address] 13 Feb, 2014 [facility] [address] [id number] [address] [place] [address], [place] [address] 13 Feb, 2014 [facility] [address] [id number] [address] [place] [address], [place] [address] 12 Feb, 2014 [facility] [address] [id number] [address] [place] [address], [place] [address] Feb, [facility] [address] [id number] [address] [place] [address], [place] [address] 15 Jan, 2014 [facility] [address] [id number] [address] [place] [address], [place] [address] Jan, [facility] [address] [id number] [address] [place] [address], [place] [address] Dec, [facility] [address] [id number] [address] [place] [address], [place] [address] Dec, [facility] [address] [id number] [address] [place] [address], [place] [address] Dec, [facility] [address] [id number] [address] [place] [address], [place] [address] Dec, [facility] [address] [id number] [address] [place] [address], [place] [address] Dec, [facility] [address] [id number] [address] [place] [address], [place] [address] Dec, [facility] [address] [id number] [address] [place] [address], [place] [address] Nov, [facility] [address] [id number] [address] [place] [address], [place] [address] Nov, [facility] [address] [id number] [facility] [place] [address] Nov, [facility] [address] [id number] [facility] [place] [address] Nov, [facility] [address] [id number] [address] [place] [address], [place] [address] October, [facility] [address] [id number] [address] [place] [address], [place] [address] October, [facility] [address] [id number] [address] [place] [address], [place] [address] October, [facility] [address] [id number] [address] [place] [address], [place] [address] October, [facility] [address] [id number] [address] [place] [address], [place] [address] October, [facility] [address] [id number] [address] [place] [address], [place] [address] October, [facility] [address] [id number] [address] [place] [address], [place] [address] October, [facility] [address] [id number] [address] [place] [address], [place] [address] October, [facility] [address] [id number] [address] [place] [address], [place] [address] October, [facility] [address] [id number] [address] [place] [address], [place] [address] October, [facility] [address] [id number] [address] [place] [address], [place] [address] October, [facility] [address] [id number] [address] [place] [address], [place] [address] October, [facility] [address] [id number] [address] [place] [address], [place] [address] October, [facility] [address] [id number] [facility] [place] [address] October, [facility] [address] [id number] [address] [place] [address], [place] [address] October, [facility] [address] [id number] [address] [place] [address], [place] [address] October, [facility] [address] [id number] [address] [place] [address], [place] [address] Sep, [facility] [address] [id number] [address] [place] [address], [place] [address] Sep, [facility] [address] [id number] [address] [place] [address], [place] [address] Sep, [facility] [address] [id number] [address] [place] [address], [place] [address] Sep, [facility] [address] [id number] [address] [place] [address], [place] [address] Sep, [facility] [address] [id number] [address] [place] [address], [place] [address] Sep, [facility] [address] [id number] [address] [place] [address], [place] [address] Aug, [facility] [address] [id number] [address] [place] [address], [place] [address] Aug, [facility] [address] [id number] [address] [place] [address], [place] [address] Aug, [facility] [address] [id number] [address] [place] [address], [place] [address] Aug, [facility] [address] [id number] [address] [place] [address], [place] [address] Aug, [facility] [address] [id number] [address] [place] [address], [place] [address] Aug, [facility] [address] [id number] [address] [place] [address], [place] [address] 11 Jul, 2013 [facility] [address] [id number] [address] [place] [address], [place] [address] Jul, [facility] [address] [id number] [address] [place] [address], [place] [address] Jul, [facility] [address] [id number] [address] [place] [address], [place] [address] Jul, [facility] [address] [id number] [address] [place] [address], [place] [address] Jun, [facility] [address] [id number] [address] [place] [address], [place] [address] Jun, [facility] [address] [id number] [address] [place] [address], [place] [address] May, [facility] [address] [id number] [address] [place] [address], [place] [address] May, [facility] [address] [id number] [address] [place] [address], [place] [address] May, [facility] [address] [id number] [address] [place] [address], [place] [address] May, [facility] [address] [id number] [address] [place] [address], [place] [address] May, [facility] [address] [id number] [address] [place] [address], [place] [address] Apr, [facility] [address] [id number] [address] [place] [address], [place] [address] Apr, [facility] [address] [id number] [address] [place] [address], [place] [address] Apr, [facility] [address] [id number] [address] [place] [address], [place] [address] Apr, [facility] [address] [id number] [address] [place] [address], [place] [address] Apr, [facility] [address] [id number] [address] [place] [address], [place] [address] 04 Apr, 2013 [facility] [address] [id number] [address] [place] [address], [place] [address] 15 Mar, 2013 [facility] [address] [id number] [address] [place] [address], [place] [address] 15 Mar, 2013 [facility] [address] [id number] [address] [place] [address], [place] [address] 14 Mar, 2013 [facility] [address] [id number] [address] [place] [address], [place] [address] 14 Mar, 2013 [facility] [address] [id number] [address] [place] [address], [place] [address] 11 Mar, 2013 [facility] [address] [id number] [address] [place] [address], [place] [address] Mar, [facility] [address] [id number] [address] [place] [address], [place] [address] 23 Feb, 2013 [facility] [address] [id number] [address] [place] [address], [place] [address] 19 Feb, 2013 [facility] [address] [id number] [address] [place] [address], [place] [address] 04 Feb, 2013 [facility] [address] [id number] [address] [place] [address], [place] [address] 30 Jan, 2013 [facility] [address] [id number] [address] [place] [address], [place] [address] Jan, [facility] [address] [id number] [address] [place] [address], [place] [address] Jan, [facility] [address] [id number] [address] [place] [address], [place] [address] 16 Jan, 2013 [facility] [address] [id number] [address] [place] [address], [place] [address] Jan, [facility] [address] [id number] [address] [place] [address], [place] [address] Jan, [facility] [address] [id number] [address] [place] [address], [place] [address] Dec, [facility] [address] [id number] [address] [place] [address], [place] [address] Dec, [facility] [address] [id number] [address] [place] [address], [place] [address] Dec, [facility] [address] [id number] [address] [place] [address], [place] [id number] Dec, [facility] [address] [id number] [address] [place] [address], [place] [address] Dec, [facility] [address] [id number] [address] [place] [address], [place] [address] Dec, [facility] [address] [id number] [address] [place] [address], [place] [address] Nov, [facility] [address] [id number] [address] [place] [address], [place] [address] Nov, [facility] [address] [id number] [address] [place] [address], [place] [address] Nov, [facility] [address] [id number] [address] [place] [address], [place] [address] Nov, [facility] [address] [id number] [address] [place] [address], [place] [address] Nov, [facility] [address] [id number] [address] [place] [address], [place] [address] Nov, [facility] [address] [id number] [address] [place] [address], [place] [address] October, [facility] [address] [id number] [address] [place] [address], [place] [address] October, [facility] [address] [id number] [address] [place] [address], [place] [address] October, [facility] [address] [id number] [address] [place] [address], [place] [address] October, [facility] [address] [id number] [address] [place] [address], [place] [address] October, [facility] [address] [id number] [address] [place] [address], [place] [address] Sep, [facility] [address] [id number] [address] [place] [address], [place] [address] Sep, [facility] [address] [id number] [address] [place] [address], [place] [address] Sep, [facility] [address] [id number] [address] [place] [address], [place] [address] Sep, [facility] [address] [id number] [address] [place] [address], [place] [address] Sep, [facility] [address] [id number] [address] [place] [address], [place] [address] Aug, [facility] [address] [id number] [address] [place] [address], [place] [address] Aug, [facility] [address] [id number] [address] [place] [address], [place] [address] Aug, [facility] [address] [id number] [address] [place] [address], [place] [address] Jul, [facility] [address] [id number] [address] [place] [address], [place] [address] Jul, [facility] [address] [id number] [address] [place] [address], [place] [address] Jul, [facility] [address] [id number] [address] [place] [address], [place] [address] 08 Jul, 2012 [facility] [address] [id number] [address] [place] [address], [place] [address] 06 Jul, 2012 [facility] [address] [id number] [address] [place] [id number] Jul, [facility] [address] [id number] [address] [place] [address], [place] [address] Jun, [facility] [address] [id number] [address] [place] [id number] Apr, [facility] [address] [id number] [address] [place] [address], [place] [address] Apr, [facility] [address] [id number] [address] [place] [address], [place] [address] Apr, [facility] [address] [id number] [address] [place] [address], [place] [address] Apr, [facility] [address] [id number] [address] [place] [address], [place] [address] Mar, [facility] [address] [id number] [address] [place] [address], [place] [address] Mar, [facility] [address] [id number] [address] [place] [address], [place] [address] Mar, [facility] [address] [id number] [address] [place] [address], [place] [address] Mar, [facility] [address] [id number] [address] [place] [address], [place] [address] Mar, [facility] [address] [id number] [address] [place] [address], [place] [address] Feb, [facility] [address] [id number] [address] [place] [phone] Jan, [facility] [address] [id number] [address] [place] [address] Jan, [facility] [address] [id number] [address] [place] [address] Jan, [facility] [address] [id number] [address] [place] [address], [place] [address] Dec, [facility] [address] [id number] [address] [place] [phone] Nov, [facility] [address] [id number] [address] [place] [id number] Nov, [facility] [address] [id number] [address] [place] [id number] Nov, [facility] [address] [id number] [address] [place] [address] Nov, [facility] [address] [id number] [address] [place] [id number] Nov, [facility] [address] [id number] [address] [place] [address] October, [facility] [address] [id number] [address] [place] [address] October, [facility] [address] [id number] [address] [place] [id number] October, [facility] [address] [id number] [address] [place] [phone] October, [facility] [address] [id number] [address] [place] [id number] October, IMMUNIZATIONS Vaccine Route Administration Date Status influenza IIV3 (history) Unknown Jul 26, 2014 Adminis tered SOCIAL HISTORY Never Assessed REASON FOR VISIT PLAN OF CARE VITAL SIGNS Height 66 in 2014-07-26 Weight 267 lbs 2014-07-26 Temperature 97.6 degrees Fahrenheit 2014-07-26 Heart Rate 70 bpm 2014-07-26 Respiratory Rate 18 2014-07-26 Blood pressure systolic 132 mmHg 2014-07-26 Blood pressure diastolic 70 mmHg 2014-07-26 MEDICATIONS Unknown Medications RESULTS No Results PROCEDURES Procedure Date Ordered Result Body Site INJ VIT B-12 CYNOCOBLMN TO 1000 MCG Jul 26, 2014 INSTRUCTIONS MEDICATIONS ADMINISTERED No Known Medications [...]
--- OUTSIDE RECORDS SUMMARY | 2020-01-25 08:21 | XMS REPORT ---
Author Author Velma CORDERO Organization [facility] Address [address] [place] [address] Care Team Providers Care Guest History Clerk Name Role Phone STEPHAN CORDERO Unavailable PROBLEMS Type Condition ICD9-CM Code QCD50-SM Code Onset Dates Condition S tatus SNOMED Code Problem Corns L84 Active 935072385 Problem Primary insomnia F51.01 Active 397 2004 Problem Hyperparathyroidism E21.3 Active 59879752 Problem Hypercholesteremia E78.0 Active 1 0666272 Problem Mood disorder F39 Active 776557 05 Problem Arthritis M19.90 Active 5834059 Problem 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 Active 28028551 Problem Myalgia M79.1 Active 38665044 Problem Chronic kidney disease, stage 4 (severe) N18.4 Active 912781854 Problem Primary osteoarthritis of left knee M17.12 Active [id number] Problem Irritable bowel syndrome with both constipation and diarrh ea K58.2 Active 42613695 Problem Other chronic pain G89.29 Active 8 7762275 Problem BPV (benign positional vertigo), bilateral H81.13 Active 226168755 Problem Hyperparathyroidism, unspecified E21.3 Active 01018932 Problem 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 Active 70434956 Problem Body mass index (BMI) of 40.0-44.9 in adult Z68.41 Active 644843988 Problem Unspecified kidney failure N19 Act chip 94773103 Problem 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 Active 179830358 Problem Unspecified inflammatory spo ndylopathy, sacral and sacrococcygeal region M46.98 Active 08633522 ALLERGIES No Information ENCOUNTERS Encounter Location Date Diagnosis [facility] [address] [facility] [id number] [address] [place] [id number] Sep, Hyperparathyroidism, unspeci fied E21.3 [facility] [address] [facility] [id number] [address] [place] [address] Aug, Hyperparathyroidism, unspeci fied E21.3 [place] [address] [id number] [address] [place] [address] Aug, Pain in left knee M25.562 ; Other chronic pain G89.29 ; Unspecified inflammatory spondylopathy, sacral and sacrococcygeal region M46.98 ; Chronic kidney disease, stage 4 (severe) N18.4 and Hyperparathyroidism, unspecified E21.3 [place] [address] [id number] [address] [place] [id number] Jul, [place] [address] [id number] [address] [place] [address] Jul, Arthritis M19.90 [place] [address] [facility] [id number] [address] [place] [id number] Jun, Knee pain, left M25.562 [place] [address] [id number] [address] [place] [address] May, Arthritis M19.90 [place] [address] [facility] [id number] [address] [place] [address] Apr, Well woman exam without gyne cological exam Z00.00 and Screening for breast cancer Z12.39 [place] [address] [facility] [id number] [address] [place] [address] Mar, Arthritis M19.90 [place] [address] [id number] [address] [place] [address] Mar, Arthritis M19.90 [place] [address] [id number] [address] [place] [address] Mar, [place] [address] [facility] [id number] [address] [place] [address] Mar, Arthritis M19.90 and Encount er for immunization Z23 [place] [address] [facility] [id number] [address] [place] [address] Feb, Arthritis M19.90 [facility] [address] [id number] [address] [place] [phone] Feb, [facility] [address] [id number] [address] [place] [address] Feb, Other specified disorders of bone density and structure, unspecified site M85.80 [facility] [address] [id number] [address] [place] [address] Jan, Arthritis M19.90 [facility] [address] [id number] [address] [place] [phone] Dec, Arthritis M19.90 [facility] [address] [id number] [address] [place] [phone] Nov, Inflammatory spondylopathy o f sacral region M46.98 [facility] [address] [id number] [address] [place] [id number] Nov, [facility] [address] [facility] [id number] [address] [place] [phone] Nov, Labyrinthitis of left ear H8 3.02 [facility] [address] [facility] [id number] [address] [place] [address] Nov, Arthritis M19.90 [facility] [address] [facility] [id number] [address] [place] [id number] 15 Sep, 2018 Arthritis M19.90 [facility] [address] [facility] [id number] [address] [place] [address] Sep, Renal insufficiency N28.9 an d Unspecified kidney failure N19 [facility] [address] [id number] [address] [place] [address] Sep, Renal insufficiency N28.9 an d Unspecified kidney failure N19 [facility] [address] [facility] [id number] [address] [place] [address] Sep, Arthritis M19.90 [facility] [address] [facility] [id number] [address] [place] [id number] 18 Aug, 2018 Exercise counseling Z71.82 [facility] [address] [id number] [address] [place] [phone] 08 Aug, 2018 [facility] [address] [facility] [id number] [address] [place] [address] 27 Jul, 2018 Labyrinthitis of left ear H8 3.02 [facility] [address] [facility] [id number] [address] [place] [address] 22 Jul, 2018 Labyrinthitis of left ear H8 3.02 [facility] [address] [id number] [address] [place] [address] 19 Jul, 2018 Exercise counseling Z71.82 [place] [address] [facility] [id number] [address] [place] [phone] 18 Jul, 2018 [place] [address] [facility] [id number] [address] [place] [address] 14 Jul, 2018 Arthritis M19.90 [place] [address] [facility] [id number] [address] [place] [address] 13 Jul, 2018 Encounter for Medicare annua l wellness exam Z00.00 ; Chronic kidney disease, stage 4 (severe) N18.4 ; Body mass index (BMI) of 40.0-44.9 in adult Z68.41 ; Hyperparathyroidism E21.3 and BMI 40.0-44.9, adult Z68.41 [place] [address] [facility] [id number] [address] [place] [id number] 13 Jul, 2018 Encounter for Medicare annua l wellness exam Z00.00 ; Chronic kidney disease, stage 4 (severe) N18.4 ; Hyperparathyroidism E21.3 ; Body mass index (BMI) of 40.0-44.9 in adult Z68.41 and Encounter for immunization Z23 [facility] [address] [facility] [id number] [address] [place] [phone] 11 Jul, 2018 Tail bone pain M53.3 [facility] [address] [facility] [id number] [address] [place] [phone] Jun, Exercise counseling Z71.82 [facility] [address] [id number] [address] [place] [address] Jun, Labyrinthitis of left ear H8 3.02 [facility] [address] [id number] [address] [place] [address] Jun, Tail bone pain M53.3 ; Irrit able bowel syndrome with both constipation and diarrhea K58.2 and Dysfunction of left eustachian tube H69.82 [facility] [address] [id number] [address] [place] [address] Jun, Exercise counseling Z71.82 [facility] [address] [id number] [address] [place] [address] Jun, Arthritis M19.90 [facility] [address] [id number] [address] [place] [address] Jun, Irritable bowel syndrome wit h both constipation and diarrhea K58.2 ; Tail bone pain M53.3 and Dysfunction of left eustachian tube H69.82 [facility] [address] [id number] [address] [place] [address] Jun, Exercise counseling Z71.82 [facility] [address] [id number] [address] [place] [address] Jun, Exercise counseling Z71.82 [facility] [address] [id number] [address] [place] [address] Jun, Labyrinthitis of left ear H8 3.02 [facility] [address] [id number] [address] [place] [address] May, Exercise counseling Z71.82 [facility] [address] [id number] [address] [place] [address] May, Arthritis M19.90 [facility] [address] [id number] [address] [place] [address] May, Exercise counseling Z71.82 [facility] [address] [id number] [address] [place] [address] May, Exercise counseling Z71.82 [facility] [address] [id number] [address] [place] [address] May, Labyrinthitis of left ear H8 3.02 [facility] [address] [id number] [address] [place] [address] May, Exercise counseling Z71.82 [facility] [address] [id number] [address] [place] [address] Apr, Arthritis M19.90 [facility] [address] [id number] [address] [place] [address] Apr, Exercise counseling Z71.82 [facility] [address] [id number] [address] [place] [address] Apr, Exercise counseling Z71.82 [facility] [address] [id number] [address] [place] [address] Apr, Primary osteoarthritis of le ft knee M17.12 [facility] [address] [id number] [address] [place] [id number] 08 Apr, 2018 Labyrinthitis of left ear H8 3.02 [facility] [address] [id number] [address] [place] [phone] 30 Mar, 2018 Arthritis M19.90 [facility] [address] [id number] [address] [place] [address] Mar, [facility] [address] [id number] [address] [place] [address] Mar, Chronic kidney disease, stag e 4 (severe) N18.4 [facility] [address] [id number] [address] [place] [address] 15 Mar, 2018 Chronic kidney disease, stag e 4 (severe) N18.4 [facility] [address] [address] Mar, Labyrinthitis of left ear H8 3.02 [place] [address] [address] Mar, Chronic kidney disease, stag e 4 (severe) N18.4 ; Knee pain, left anterior M25.562 ; Deficiency of other specified B group vitamins E53.8 and Encounter for immunization Z23 [place] [address] [address] Mar, Arthritis M19.90 [place] [address] [address] Feb, Labyrinthitis of left ear H8 3.02 [place] [address] [address] Feb, Arthritis M19.90 [place] [address] [address] Jan, Labyrinthitis of left ear H8 3.02 [place] [address] [address] Jan, Arthritis M19.90 [place] [address] [address] Dec, Labyrinthitis of left ear H8 3.02 [place] [address] [address] Nov, Arthritis M19.90 [place] [address] [place] [id number] [place] [address] Nov, Labyrinthitis of left ear H8 3.02 [place] [address] [place] [id number] [place] [address] Nov, BMI 40.0-44.9, adult Z68.41 ; Chronic kidney disease, stage 4 (severe) N18.4 and Acute right-sided thoracic back pain M54.6 [facility] [address] [id number] [address] [place] [address] October, Labyrinthitis of left ear H8 3.02 and Arthritis M19.90 [facility] [address] [facility] [id number] [address] [place] [phone] Sep, BPV (benign positional verti go), bilateral H81.13 ; Dysfunction of left eustachian tube H69.82 and BMI 40.0-44.9, adult Z68.41 [facility] [address] [facility] [id number] [address] [place] [address] Sep, Labyrinthitis of left ear H8 3.02 and Arthritis M19.90 [facility] [address] [facility] [id number] [address] [place] [address] Sep, [place] [address] [place] [id number] [address] [place] [phone] Sep, [facility] [address] [facility] [id number] [address] [place] [address] Sep, Chronic kidney disease, stag e 4 (severe) N18.4 [place] [address] [facility] [id number] [address] [place] [address] Sep, Chronic kidney disease, stag e 4 (severe) N18.4 [place] [address] [facility] [id number] [address] [place] [address] Aug, Labyrinthitis of left ear H8 3.02 and Arthritis M19.90 [facility] [address] [id number] [address] [place] [address] Aug, [facility] [address] [facility] [id number] [address] [place] [phone] Jul, [facility] [address] [facility] [id number] [address] [place] [address] Jul, Arthritis M19.90 and Labyrin thitis of left ear H83.02 [place] [address] [facility] [id number] [address] [place] [address] Jul, [place] [address] [place] [id number] [place] [address] Jun, [place] [address] [place] [id number] [address] [place] [address] Jun, Arthritis M19.90 and Labyrin thitis of left ear H83.02 [place] [address] [address] Jun, Pre-op evaluation Z01.818 ; BMI 40.0-44.9, adult Z68.41 and Encounter for immunization Z23 [place] [address] [place] [id number] [place] [address] May, Arthritis M19.90 and Labyrin thitis of left ear H83.02 [place] [address] [address] Apr, Labyrinthitis of left ear H8 3.02 [place] [address] [address] Apr, Arthritis M19.90 and Labyrin thitis of left ear H83.02 [place] [address] [place] [id number] [place] [address] Mar, Arthritis M19.90 and Labyrin thitis of left ear H83.02 [place] [address] [place] [id number] [address] [place] [address] Mar, Chronic kidney disease, stag e 4 (severe) N18.4 [place] [address] [place] [id number] [address] [place] [address] 06 Feb, 2017 Arthritis M19.90 and Labyrin thitis of left ear H83.02 [place] [address] [place] [id number] [address] [place] [address] Jan, Labyrinthitis of left ear H8 3.02 and Deficiency of other specified B group vitamins E53.8 [facility] [address] [id number] [address] [place] [address] Dec, Arthritis M19.90 [facility] [address] [id number] [address] [place] [address] Dec, BPV (benign positional verti go), bilateral H81.13 [facility] [address] [id number] [address] [place] [address] Dec, [facility] [address] [id number] [address] [place] [address] Dec, [facility] [address] [id number] [address] [place] [address] Dec, [facility] [address] [facility] [id number] [address] [place] [address] Nov, Arthritis M19.90 and Deficie ncy of other specified B group vitamins E53.8 [facility] [address] [id number] [address] [place] [address] Nov, Arthritis M19.90 [facility] [address] [id number] [address] [place] [address] Nov, Hyperparathyroidism E21.3 [facility] [address] [facility] [id number] [address] [place] [address] October, [facility] [address] [facility] [id number] [address] [place] [address] October, Hyperparathyroidism E21.3 [facility] [address] [id number] [address] [place] [address] October, [facility] [address] [facility] [id number] [address] [place] [address] October, Renal insufficiency N28.9 an d Hyperparathyroidism E21.3 [facility] [address] [facility] [id number] [address] [place] [address] October, [facility] [address] [place] [id number] [address] [place] [address] October, Renal insufficiency N28.9 an d Hyperparathyroidism E21.3 [facility] [address] [place] [id number] [address] [place] [address] October, Arthritis M19.90 [facility] [address] [address] Sep, [facility] [address] [address] Sep, Lumbar neuritis M54.16 ; Tho racic abscess J86.9 and Deficiency of other specified B group vitamins E53.8 [facility] [address] [place] [id number] [address] [place] [address] Sep, [facility] [address] [address] Aug, Arthritis M19.90 [facility] [address] [place] [id number] [address] [place] [address] Aug, Hyperparathyroidism E21.3 [facility] [address] [address] Aug, Hyperparathyroidism E21.3 [facility] [address] [address] Aug, Arthritis M19.90 [facility] [address] [place] [id number] [address] [place] [address] Jul, Mass of throat R22.1 [facility] [address] [address] Jul, [facility] [address] [place] [id number] [address] [place] [address] Jul, Arthritis M19.90 [facility] [address] [place] [id number] [address] [place] [address] Jun, Arthritis M19.90 [facility] [address] [facility] [id number] [address] [place] [address] Jun, [facility] [address] [facility] [id number] [address] [place] [address] Jun, Renal insufficiency N28.9 an d Parathyroid abnormality E21.5 [facility] [address] [facility] [id number] [address] [place] [address] 05 Jun, 2016 Medicare welcome exam Z00.00 ; Encounter for immunization Z23 ; Arthritis M19.90 ; Medicare annual wellness visit, initial Z00.00 ; Medicare annual wellness visit, subsequent Z00.00 and Deficiency of other specified B group vitamins E53.8 [facility] [address] [facility] [id number] [address] [place] [address] 29 May, 2016 Renal insufficiency N28.9 an d Parathyroid abnormality E21.5 [facility] [address] [facility] [id number] [address] [place] [address] May, Renal insufficiency N28.9 [facility] [address] [facility] [id number] [address] [place] [address] May, Renal insufficiency N28.9 [facility] [address] [facility] [id number] [address] [place] [address] 14 May, 2016 [facility] [address] [facility] [id number] [address] [place] [address] Apr, [facility] [address] [facility] [id number] [address] [place] [address] 16 Apr, 2016 [facility] [address] [facility] [id number] [address] [place] [phone] 14 Apr, 2016 Mass of throat R22.1 [facility] [address] [facility] [id number] [address] [place] [phone] 10 Apr, 2016 [facility] [address] [facility] [id number] [address] [place] [phone] 10 Apr, 2016 Mass of throat R22.1 [facility] [address] [id number] [address] [place] [phone] 04 Apr, 2016 Mass of throat R22.1 [facility] [address] [id number] [address] [place] [phone] Mar, [facility] [address] [facility] [id number] [address] [place] [phone] Mar, [facility] [address] [id number] [address] [place] [phone] Mar, [facility] [address] [facility] [id number] [address] [place] [phone] 24 Mar, 2016 Parathyroid abnormality E21. 5 and Encounter for immunization Z23 [facility] [address] [facility] [id number] [address] [place] [phone] 17 Mar, 2016 [facility] [address] [facility] [id number] [address] [place] [id number] Mar, [facility] [address] [facility] [id number] [address] [place] [phone] 21 Feb, 2016 Renal insufficiency N28.9 an d Hyperparathyroidism E21.3 [facility] [address] [id number] [address] [place] [phone] 19 Feb, 2016 [facility] [address] [facility] [id number] [address] [place] [phone] 15 Feb, 2016 Renal insufficiency N28.9 an d Hyperparathyroidism E21.3 [facility] [address] [id number] [address] [place] [phone] 14 Feb, 2016 [facility] [address] [id number] [address] [place] [phone] 12 Feb, 2016 [facility] [address] [facility] [id number] [address] [place] [phone] 09 Feb, 2016 [facility] [address] [facility] [id number] [address] [place] [phone] Jan, [facility] [address] [facility] [id number] [address] [place] [phone] Jan, Arthritis M19.90 ; Lumbago w ith sciatica, right side M54.41 and Other chronic pain G89.29 [facility] [address] [facility] [id number] [address] [place] [address] Jan, [facility] [address] [facility] [id number] [address] [place] [address] Dec, Arthritis M19.90 ; Lumbago w ith sciatica, right side M54.41 and Other chronic pain G89.29 [facility] [place] [address] [place] [id number] [address] [place] [address] 16 Nov, 2015 Deficiency of other specifie d B group vitamins E53.8 ; Primary insomnia F51.01 ; Mood disorder F39 and Lumbago with sciatica, right side M54.41 [place] [address] [place] [id number] [address] [place] [address] Nov, Hyperparathyroidism E21.3 [facility] [address] [place] [id number] [address] [place] [address] Nov, Unspecified kidney failure N 19 and Hyperparathyroidism E21.3 [place] [address] [place] [id number] [address] [place] [address] October, Hyperparathyroidism E21.3 [place] [address] [place] [id number] [address] [place] [address] October, [facility] [address] [place] [id number] [address] [place] [address] October, Hyperparathyroidism E21.3 [place] [address] [place] [id number] [address] [place] [address] October, Hyperparathyroidism E21.3 [facility] [address] [facility] [id number] [address] [place] [address] Sep, Hyperparathyroidism E21.3 ; Hypercholesterolemia E78.0 and Arthritis M19.90 [place] [address] [place] [id number] [address] [place] [address] Aug, [facility] [address] [facility] [id number] [address] [place] [address] Aug, Deficiency of other specifie d B group vitamins E53.8 [facility] [address] [facility] [id number] [address] [place] [address] Aug, [facility] [address] [place] [id number] [place] [address] Jul, Urinary frequency R35.0 [facility] [address] [facility] [id number] [address] [place] [address] Jul, Urinary frequency R35.0 [facility] [address] [facility] [id number] [address] [place] [address] Jul, [facility] [address] [place] [id number] [place] [address] Jul, [facility] [address] [facility] [id number] [address] [place] [address] Jun, Pain in left knee M25.562 [facility] [address] [place] [id number] [address] [place] [address] Jun, [facility] [address] [place] [id number] [address] [place] [address] May, Swelling of left knee joint M25.462 [facility] [address] [facility] [id number] [address] [place] [address] May, [facility] [address] [facility] [id number] [address] [place] [address] May, [facility] [address] [place] [id number] [address] [place] [address] May, [facility] [address] [facility] [id number] [address] [place] [address] Apr, Renal insufficiency N28.9 an d Chronic kidney disease, stage 4 (severe) N18.4 [facility] [address] [facility] [id number] [address] [place] [address] Apr, Unspecified kidney failure N 19 [facility] [address] [facility] [id number] [address] [place] [address] Apr, Unspecified kidney failure N 19 [facility] [address] [facility] [id number] [address] [place] [address] Apr, [facility] [address] [facility] [id number] [address] [place] [address] Apr, Hyperparathyroidism, unspeci fied 252.00 [facility] [address] [facility] [id number] [address] [place] [address] Apr, [facility] [address] [facility] [id number] [address] [place] [address] Mar, [facility] [address] [facility] [id number] [address] [place] [address] Mar, [facility] [address] [facility] [id number] [address] [place] [address] Mar, Hyperparathyroidism, unspeci fied 252.00 [facility] [address] [facility] [id number] [address] [place] [address] Feb, [facility] [address] [facility] [id number] [address] [place] [address] Feb, Otalgia 388.70 [facility] [address] [facility] [id number] [address] [place] [address] Feb, [facility] [address] [facility] [id number] [address] [place] [address] Feb, [facility] [address] [facility] [id number] [address] [place] [address] Jan, [facility] [address] [facility] [id number] [address] [place] [address] Jan, Hyperparathyroidism, unspeci fied 252.00 [facility] [address] [id number] [address] [place] [address] Jan, [facility] [address] [id number] [address] [place] [address] Jan, Other B-complex deficiencies 266.2 and Hyperparathyroidism, unspecified 252.00 [facility] [address] [id number] [address] [place] [address] Jan, [facility] [address] [id number] [address] [place] [address] Jan, [facility] [address] [id number] [address] [place] [address] Jan, [facility] [address] [id number] [address] [place] [address] Dec, [facility] [address] [id number] [address] [place] [address] Dec, [facility] [address] [id number] [address] [place] [address] Dec, [facility] [address] [id number] [address] [place] [address] Nov, Routine check-up V70.0 and P re-op exam V72.84 [facility] [address] [id number] [address] [place] [address] Nov, [facility] [address] [id number] [address] [place] [address] Nov, [facility] [address] [id number] [address] [place] [address] October, [facility] [address] [id number] [address] [place] [address] October, Other B-complex deficiencies 266.2 [facility] [address] [id number] [address] [place] [address] October, [facility] [address] [id number] [address] [place] [address], [place] [address] 14 Sep, 2014 [facility] [address] [id number] [address] [place] [address], [place] [address] 13 Sep, 2014 [facility] [address] [id number] [address] [place] [address], [place] [address] 20 Aug, 2014 [facility] [address] [id number] [address] [place] [address], [place] [address] 20 Aug, 2014 [facility] [address] [id number] [address] [place] [address], [place] [address] 17 Aug, 2014 [facility] [address] [id number] [address] [place] [address], [place] [address] 17 Aug, 2014 [facility] [address] [id number] [address] [place] [address], [place] [address] 11 Aug, 2014 [facility] [address] [id number] [address] [place] [address], [place] [address] 11 Aug, 2014 [facility] [address] [id number] [address] [place] [address], [place] [address] 18 Jul, 2014 [facility] [address] [id number] [address] [place] [address], [place] [address] 18 Jul, 2014 [facility] [address] [id number] [address] [place] [address], [place] [address] 17 Jul, 2014 [facility] [address] [id number] [address] [place] [address], [place] [address] 17 Jul, 2014 [facility] [address] [id number] [address] [place] [address], [place] [address] 12 Jul, 2014 [facility] [address] [id number] [address] [place] [address], [place] [address] 12 Jul, 2014 [facility] [address] [id number] [address] [place] [address], [place] [address] 10 Jul, 2014 [facility] [address] [id number] [address] [place] [address], [place] [address] Jul, [facility] [address] [id number] [address] [place] [address], [place] [address] Jul, [facility] [address] [id number] [address] [place] [address], [place] [address] Jul, [facility] [address] [id number] [address] [place] [address], [place] [address] Jul, 2014 [facility] [address] [id number] [address] [place] [address], [place] [address] Jul, 2014 [facility] [address] [id number] [address] [place] [address], [place] [address] Jul, [facility] [address] [id number] [address] [place] [address], [place] [address] Jul, [facility] [address] [id number] [address] [place] [address], [place] [address] Jun, [facility] [address] [id number] [address] [place] [address], [place] [address] Jun, [facility] [address] [id number] [address] [place] [address], [place] [address] Jun, [facility] [address] [id number] [address] [place] [address], [place] [address] Jun, [facility] [address] [id number] [address] [place] [address], [place] [address] Jun, [facility] [address] [id number] [address] [place] [address], [place] [address] Jun, [facility] [address] [id number] [address] [place] [address], [place] [address] Jun, [facility] [address] [id number] [address] [place] [address], [place] [address] Jun, [facility] [address] [id number] [address] [place] [address], [place] [address] Jun, [facility] [address] [id number] [address] [place] [address], [place] [address] Jun, [facility] [address] [id number] [address] [place] [address], [place] [address] Jun, [facility] [address] [id number] [address] [place] [address], [place] [address] Jun, [facility] [address] [id number] [address] [place] [address], [place] [address] Jun, [facility] [address] [id number] [address] [place] [address], [place] [address] Jun, [facility] [address] [id number] [address] [place] [address], [place] [address] May, [facility] [address] [id number] [address] [place] [address], [place] [address] May, [facility] [address] [id number] [address] [place] [address], [place] [address] May, [facility] [address] [id number] [address] [place] [address], [place] [address] May, [facility] [address] [id number] [address] [place] [address], [place] [address] Apr, [facility] [address] [id number] [address] [place] [address], [place] [address] Apr, [facility] [address] [id number] [address] [place] [address], [place] [address] Apr, [facility] [address] [id number] [address] [place] [address], [place] [address] Apr, [facility] [address] [id number] [address] [place] [address], [place] [address] Apr, [facility] [address] [id number] [address] [place] [address], [place] [address] Apr, [facility] [address] [id number] [address] [place] [address], [place] [address] Mar, [facility] [address] [id number] [address] [place] [address], [place] [address] 24 Mar, 2014 [facility] [address] [id number] [address] [place] [address], [place] [address] Mar, [facility] [address] [id number] [address] [place] [address], [place] [address] Mar, [facility] [address] [id number] [address] [place] [address], [place] [address] 15 Mar, 2014 [facility] [address] [id number] [address] [place] [address], [place] [address] 15 Mar, 2014 [facility] [address] [id number] [address] [place] [address], [place] [address] Mar, [facility] [address] [id number] [address] [place] [address], [place] [address] Mar, [facility] [address] [id number] [address] [place] [address], [place] [address] Mar, [facility] [address] [id number] [address] [place] [address], [place] [address] 07 Mar, 2014 [facility] [address] [id number] [address] [place] [address] 07 Mar, 2014 [facility] [address] [id number] [address] [place] [address], [place] [address] 07 Mar, 2014 [facility] [address] [id number] [address] [place] [address] 06 Mar, 2014 [facility] [address] [id number] [address] [place] [address], [place] [address] Feb, [facility] [address] [id number] [address] [place] [address], [place] [address] Feb, [facility] [address] [id number] [address] [place] [address], [place] [address] 23 Feb, 2014 [facility] [address] [id number] [address] [place] [address], [place] [address] 23 Feb, 2014 [facility] [address] [id number] [facility] [address] 19 Feb, 2014 [facility] [address] [id number] [address] [place] [address], [place] [address] 19 Feb, 2014 [facility] [address] [id number] [address] [place] [address], [place] [address] 13 Feb, 2014 [facility] [address] [id number] [address] [place] [address], [place] [address] 13 Feb, 2014 [facility] [address] [id number] [address] [place] [address], [place] [address] 12 Feb, 2014 [facility] [address] [id number] [address] [place] [address], [place] [address] Feb, [facility] [address] [id number] [address] [place] [address], [place] [address] 15 Jan, 2014 [facility] [address] [id number] [address] [place] [address], [place] [address] Jan, [facility] [address] [id number] [address] [place] [address], [place] [address] Dec, [facility] [address] [id number] [address] [place] [address], [place] [address] Dec, [facility] [address] [id number] [address] [place] [address], [place] [address] Dec, [facility] [address] [id number] [address] [place] [address], [place] [address] Dec, [facility] [address] [id number] [address] [place] [address], [place] [address] Dec, [facility] [address] [id number] [address] [place] [address], [place] [address] Dec, [facility] [address] [id number] [address] [place] [address], [place] [address] Nov, [facility] [address] [id number] [address] [place] [address], [place] [address] Nov, [facility] [address] [id number] [facility] [address] Nov, [facility] [address] [id number] [facility] [address] Nov, [facility] [address] [id number] [address] [place] [address], [place] [address] October, [facility] [address] [id number] [address] [place] [address], [place] [address] October, [facility] [address] [id number] [address] [place] [address], [place] [address] October, [facility] [address] [id number] [address] [place] [address], [place] [address] October, [facility] [address] [id number] [address] [place] [address], [place] [address] October, [facility] [address] [id number] [address] [place] [address], [place] [address] October, [facility] [address] [id number] [address] [place] [address], [place] [address] October, [facility] [address] [id number] [address] [place] [address], [place] [address] October, [facility] [address] [id number] [address] [place] [address], [place] [address] October, [facility] [address] [id number] [address] [place] [address], [place] [address] October, [facility] [address] [id number] [address] [place] [address], [place] [address] October, [facility] [address] [id number] [address] [place] [address], [place] [address] October, [facility] [address] [id number] [address] [place] [address], [place] [address] October, [facility] [address] [id number] [facility] [address] October, [facility] [address] [id number] [address] [place] [address], [place] [address] October, [facility] [address] [id number] [address] [place] [address], [place] [address] October, [facility] [address] [id number] [address] [place] [address], [place] [address] Sep, [facility] [address] [id number] [address] [place] [address], [place] [address] Sep, [facility] [address] [id number] [address] [place] [address], [place] [address] Sep, [facility] [address] [id number] [address] [place] [address], [place] [address] Sep, [facility] [address] [id number] [address] [place] [address], [place] [address] Sep, [facility] [address] [id number] [address] [place] [address], [place] [address] Sep, [facility] [address] [id number] [address] [place] [address], [place] [address] Aug, [facility] [address] [id number] [address] [place] [address], [place] [address] Aug, [facility] [address] [id number] [address] [place] [address], [place] [address] Aug, [facility] [address] [id number] [address] [place] [address], [place] [address] Aug, [facility] [address] [id number] [address] [place] [address], [place] [address] Aug, [facility] [address] [id number] [address] [place] [address], [place] [address] Aug, [facility] [address] [id number] [address] [place] [address], [place] [address] 11 Jul, 2013 [facility] [address] [id number] [address] [place] [address], [place] [address] Jul, [facility] [address] [id number] [address] [place] [address], [place] [address] Jul, [facility] [address] [id number] [address] [place] [address], [place] [address] Jul, [facility] [address] [id number] [address] [place] [address], [place] [address] Jun, [facility] [address] [id number] [address] [place] [address], [place] [address] Jun, [facility] [address] [id number] [address] [place] [address], [place] [address] May, [facility] [address] [id number] [address] [place] [address], [place] [address] May, [facility] [address] [id number] [address] [place] [address], [place] [address] May, [facility] [address] [id number] [address] [place] [address], [place] [address] May, [facility] [address] [id number] [address] [place] [address], [place] [address] May, [facility] [address] [id number] [address] [place] [address], [place] [address] Apr, [facility] [address] [id number] [address] [place] [address], [place] [address] Apr, [facility] [address] [id number] [address] [place] [address], [place] [address] Apr, [facility] [address] [id number] [address] [place] [address], [place] [address] Apr, [facility] [address] [id number] [address] [place] [address], [place] [address] Apr, [facility] [address] [id number] [address] [place] [address], [place] [address] 04 Apr, 2013 [facility] [address] [id number] [address] [place] [address], [place] [address] 15 Mar, 2013 [facility] [address] [id number] [address] [place] [address], [place] [address] 15 Mar, 2013 [facility] [address] [id number] [address] [place] [address], [place] [address] 14 Mar, 2013 [facility] [address] [id number] [address] [place] [address], [place] [address] 14 Mar, 2013 [facility] [address] [id number] [address] [place] [address], [place] [address] 11 Mar, 2013 [facility] [address] [id number] [address] [place] [address], [place] [address] Mar, [facility] [address] [id number] [address] [place] [address], [place] [address] 23 Feb, 2013 [facility] [address] [id number] [address] [place] [address], [place] [address] 19 Feb, 2013 [facility] [address] [id number] [address] [place] [address], [place] [address] 04 Feb, 2013 [facility] [address] [id number] [address] [place] [address], [place] [address] 30 Jan, 2013 [facility] [address] [id number] [address] [place] [address], [place] [address] Jan, [facility] [address] [id number] [address] [place] [address], [place] [address] Jan, [facility] [address] [id number] [address] [place] [address], [place] [address] 16 Jan, 2013 [facility] [address] [id number] [address] [place] [address], [place] [address] Jan, [facility] [address] [id number] [address] [place] [address], [place] [address] Jan, [facility] [address] [id number] [address] [place] [address], [place] [address] Dec, [facility] [address] [id number] [address] [place] [address], [place] [address] Dec, [facility] [address] [id number] [address] [place] [address], [place] [address] Dec, [facility] [address] [id number] [address] [place] [address], [place] [address] Dec, [facility] [address] [id number] [address] [place] [address], [place] [address] Dec, [facility] [address] [id number] [address] [place] [address], [place] [address] Dec, [facility] [address] [id number] [address] [place] [address], [place] [address] Nov, [facility] [address] [id number] [address] [place] [address], [place] [address] Nov, [facility] [address] [id number] [address] [place] [address], [place] [address] Nov, [facility] [address] [id number] [address] [place] [address], [place] [address] Nov, [facility] [address] [id number] [address] [place] [address], [place] [address] Nov, [facility] [address] [id number] [address] [place] [address], [place] [address] Nov, [facility] [address] [id number] [address] [place] [address], [place] [address] October, [facility] [address] [id number] [address] [place] [address], [place] [address] October, [facility] [address] [id number] [address] [place] [address], [place] [address] October, [facility] [address] [id number] [address] [place] [address], [place] [address] October, [facility] [address] [id number] [address] [place] [address], [place] [address] October, [facility] [address] [id number] [address] [place] [address], [place] [address] Sep, [facility] [address] [id number] [address] [place] [address], [place] [address] Sep, [facility] [address] [id number] [address] [place] [address], [place] [address] Sep, [facility] [address] [id number] [address] [place] [address], [place] [address] Sep, [facility] [address] [id number] [address] [place] [address], [place] [address] Sep, [facility] [address] [id number] [address] [place] [address], [place] [address] Aug, [facility] [address] [id number] [address] [place] [address], [place] [address] Aug, [facility] [address] [id number] [address] [place] [address], [place] [address] Aug, [facility] [address] [id number] [address] [place] [address], [place] [address] Jul, [facility] [address] [id number] [address] [place] [address], [place] [address] Jul, [facility] [address] [id number] [address] [place] [address], [place] [address] Jul, [facility] [address] [id number] [address] [place] [address], [place] [address] 08 Jul, 2012 [facility] [address] [id number] [address] [place] [address], [place] [address] 06 Jul, 2012 [facility] [address] [id number] [address] [place] [phone] Jul, [facility] [address] [id number] [address] [place] [address], [place] [address] Jun, [facility] [address] [id number] [address] [place] [address] Apr, [facility] [address] [id number] [address] [place] [address], [place] [address] Apr, [facility] [address] [id number] [address] [place] [address], [place] [address] Apr, [facility] [address] [id number] [address] [place] [address], [place] [address] Apr, [facility] [address] [id number] [address] [place] [address], [place] [address] Mar, [facility] [address] [id number] [address] [place] [address], [place] [address] Mar, [facility] [address] [id number] [address] [place] [address], [place] [address] Mar, [facility] [address] [id number] [address] [place] [address], [place] [address] Mar, [facility] [address] [id number] [address] [place] [address], [place] [address] Mar, [facility] [address] [id number] [address] [place] [address], [place] [address] Feb, [facility] [address] [id number] [address] [place] [id number] Jan, [facility] [address] [id number] [address] [place] [address] Jan, [facility] [address] [id number] [address] [place] [address] Jan, [facility] [address] [id number] [address] [place] [address], [place] [address] Dec, [facility] [address] [id number] [address] [place] [address] Nov, [facility] [address] [id number] [address] [place] [id number] Nov, [facility] [address] [id number] [address] [place] [id number] Nov, [facility] [address] [id number] [address] [place] [address] Nov, [facility] [address] [id number] [address] [place] [phone] Nov, [facility] [address] [id number] [address] [place] [address] October, [facility] [address] [id number] [address] [place] [id number] October, [facility] [address] [id number] [address] [place] [address] October, [facility] [address] [id number] [address] [place] [address] October, [facility] [address] [id number] [address] [place] [id number] October, IMMUNIZATIONS No Known Immunizations SOCIAL HISTORY Never Assessed REASON FOR VISIT PLAN OF CARE VITAL SIGNS MEDICATIONS Unknown Medications RESULTS No Results PROCEDURES Procedure Date Ordered Result Body Site COLOREC CNCR SCR;COLNSCPY NO HI RSK Jul 31, 2014 INSTRUCTIONS MEDICATIONS ADMINISTERED No Known Medications [...]
--- OUTSIDE RECORDS SUMMARY | 2020-01-25 08:22 | XMS REPORT ---
Author Author Velma CORDERO Organization [facility] Address [address] [place] [address] Care Team Providers Care [place] Name Role Phone STEPHAN CORDERO Unavailable PROBLEMS Type Condition ICD9-CM Code HSC00-GN Code Onset Dates Condition S tatus SNOMED Code Problem Hypercholesteremia E78.0 Active 1 1608340 Problem Arthritis M19.90 Active 9284927 Problem Hyperparathyroidism E21.3 Active 80936129 Problem Primary insomnia F51.01 Active 397 2004 Problem Myalgia M79.1 Active 36062864 Problem Chronic kidney disease, stage 4 (severe) N18.4 Active 059620486 Problem BPV (benign positional vertigo), bilateral H81.13 Active 042873652 Problem Corns L84 Active 532375580 Problem Mood disorder F39 Active 575243 05 Problem 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 Active 76306900 Problem 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 Active 77640440 ALLERGIES No Information ENCOUNTERS Encounter Location Date Diagnosis [facility] [address] [id number] [address] [place] [address] Sep, [facility] [address] [id number] [address] [place] [address] Sep, [facility] [id number] [place] [address] Sep, [facility] [address] [id number] [address] [place] [address] Sep, Chronic kidney disease, stag e 4 (severe) N18.4 [facility] [address] [id number] [address] [place] [address] Sep, Chronic kidney disease, stag e 4 (severe) N18.4 [facility] [address] [id number] [address] [place] [address] Aug, Labyrinthitis of left ear H8 3.02 and Arthritis M19.90 [facility] [address] [facility] [id number] [address] [place] [address] Aug, [facility] [address] [id number] [address] [place] [address] Jul, [facility] [address] [facility] [id number] [address] [place] [address] Jul, Arthritis M19.90 and Labyrin thitis of left ear H83.02 [facility] [address] [id number] [address] [place] [address] Jul, [facility] [address] [facility] [id number] [address] [place] [address] Jun, [facility] [address] [facility] [id number] [address] [place] [address] Jun, Arthritis M19.90 and Labyrin thitis of left ear H83.02 [facility] [address] [facility] [id number] [address] [place] [address] Jun, Pre-op evaluation Z01.818 ; BMI 40.0-44.9, adult Z68.41 and Encounter for immunization Z23 [facility] [address] [facility] [id number] [address] [place] [address] May, Arthritis M19.90 and Labyrin thitis of left ear H83.02 [facility] [address] [facility] [id number] [address] [place] [address] Apr, Labyrinthitis of left ear H8 3.02 [facility] [address] [facility] [id number] [address] [place] [address] Apr, Arthritis M19.90 and Labyrin thitis of left ear H83.02 [facility] [address] [facility] [id number] [address] [place] [address] Mar, Arthritis M19.90 and Labyrin thitis of left ear H83.02 [facility] [address] [id number] [address] [place] [address] 05 Mar, 2017 Chronic kidney disease, stag e 4 (severe) N18.4 [facility] [address] [id number] [address] [place] [address] 06 Feb, 2017 Arthritis M19.90 and Labyrin thitis of left ear H83.02 [facility] [address] [id number] [address] [place] [address] 10 Jan, 2017 Labyrinthitis of left ear H8 3.02 and 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 [facility] [address] [id number] [address] [place] [address] Dec, Arthritis M19.90 [facility] [address] [id number] [address] [place] [address] Dec, BPV (benign positional verti go), bilateral H81.13 [facility] [address] [id number] [address] [place] [address] Dec, [facility] [address] [id number] [address] [place] [address] Dec, [facility] [address] [facility] [id number] [address] [place] [address] Dec, [facility] [address] [id number] [address] [place] [address] Nov, Arthritis M19.90 and Deficie ncy of other specified B group vitamins E53.8 [facility] [address] [id number] [address] [place] [address] Nov, Arthritis M19.90 [facility] [address] [id number] [address] [place] [address] Nov, Hyperparathyroidism E21.3 [facility] [address] [facility] [id number] [address] [place] [address] October, [facility] [address] [facility] [id number] [address] [place] [address] October, Hyperparathyroidism E21.3 [facility] [address] [facility] [id number] [address] [place] [address] October, [facility] [address] [facility] [id number] [address] [place] [address] October, Renal insufficiency N28.9 an d Hyperparathyroidism E21.3 [facility] [address] [facility] [id number] [address] [place] [address] October, [facility] [address] [facility] [id number] [address] [place] [address] October, Renal insufficiency N28.9 an d Hyperparathyroidism E21.3 [facility] [address] [facility] [id number] [address] [place] [address] October, Arthritis M19.90 [facility] [address] [facility] [id number] [address] [place] [address] Sep, [facility] [address] [facility] [id number] [address] [place] [address] Sep, Lumbar neuritis M54.16 ; Tho racic abscess J86.9 and 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 [facility] [address] [facility] [id number] [address] [place] [address] Sep, [facility] [address] [facility] [id number] [address] [place] [address] Aug, Arthritis M19.90 [facility] [address] [facility] [id number] [address] [place] [address] Aug, Hyperparathyroidism E21.3 [facility] [address] [facility] [id number] [address] [place] [address] Aug, Hyperparathyroidism E21.3 [facility] [address] [id number] [address] [place] [address] Aug, Arthritis M19.90 [facility] [address] [facility] [id number] [address] [place] [address] Jul, Mass of throat R22.1 [facility] [address] [facility] [id number] [address] [place] [address] Jul, [facility] [address] [facility] [id number] [address] [place] [address] Jul, Arthritis M19.90 [facility] [address] [facility] [id number] [address] [place] [address] Jun, Arthritis M19.90 [facility] [address] [id number] [address] [place] [address] Jun, [facility] [address] [facility] [id number] [address] [place] [address] Jun, Renal insufficiency N28.9 an d Parathyroid abnormality E21.5 [facility] [address] [facility] [id number] [address] [place] [address] 05 Jun, 2016 Encounter for immunization Z 23 ; Medicare welcome exam Z00.00 ; Arthritis M19.90 ; Medicare annual wellness visit, initial Z00.00 ; Medicare annual wellness visit, subsequent Z00.00 and 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 [facility] [address] [facility] [id number] [address] [place] [address] May, Renal insufficiency N28.9 an d Parathyroid abnormality E21.5 [facility] [address] [facility] [id number] [address] [place] [address] May, Renal insufficiency N28.9 [facility] [address] [facility] [id number] [address] [place] [address] May, Renal insufficiency N28.9 [facility] [address] [facility] [id number] [address] [place] [address] May, [facility] [address] [id number] [address] [place] [address] Apr, [facility] [address] [id number] [address] [place] [address] 16 Apr, 2016 [facility] [address] [id number] [address] [place] [address] 14 Apr, 2016 Mass of throat R22.1 [facility] [address] [id number] [address] [place] [address] 10 Apr, 2016 [facility] [address] [id number] [address] [place] [address] 10 Apr, 2016 Mass of throat R22.1 [facility] [address] [id number] [address] [place] [address] 04 Apr, 2016 Mass of throat R22.1 [facility] [address] [id number] [address] [place] [address] Mar, [facility] [address] [id number] [address] [place] [address] Mar, [facility] [address] [id number] [address] [place] [address] Mar, [facility] [address] [facility] [id number] [address] [place] [address] 24 Mar, 2016 Parathyroid abnormality E21. 5 and Encounter for immunization Z23 [facility] [address] [facility] [id number] [address] [place] [address] 17 Mar, 2016 [facility] [address] [facility] [id number] [address] [place] [address] Mar, [facility] [address] [facility] [id number] [address] [place] [address] 21 Feb, 2016 Renal insufficiency N28.9 an d Hyperparathyroidism E21.3 [facility] [address] [id number] [address] [place] [address] 19 Feb, 2016 [facility] [address] [facility] [id number] [address] [place] [address] 15 Feb, 2016 Renal insufficiency N28.9 an d Hyperparathyroidism E21.3 [facility] [address] [facility] [id number] [address] [place] [address] 14 Feb, 2016 [facility] [id number] [address] [place] [address] Feb, [facility] [id number] [address] [place] [address] Feb, [place] [id number] [place] [address] Jan, [place] [id number] [place] [address] Jan, Arthritis M19.90 ; Lumbago w ith sciatica, right side M54.41 and Other chronic pain G89.29 [address] [address] [address] Jan, [place] [address] [address] Dec, Arthritis M19.90 ; Lumbago w ith sciatica, right side M54.41 and Other chronic pain G89.29 [address] [address] [address] Nov, Deficiency of other specifie d B group vitamins E53.8 ; Primary insomnia F51.01 ; Mood disorder F39 and Lumbago with sciatica, right side M54.41 [place] [address] [id number] [address] [place] [address] Nov, Hyperparathyroidism E21.3 [facility] [facility] [id number] [place] [address] Nov, Unspecified kidney failure N 19 and Hyperparathyroidism E21.3 [place] [facility] [id number] [address] [place] [address] October, Hyperparathyroidism E21.3 [place] [id number] [place] [address] October, [facility] [address] [id number] [address] [place] [address] October, Hyperparathyroidism E21.3 [facility] [id number] [place] [address] October, Hyperparathyroidism E21.3 [facility] [address] [address] Sep, Hyperparathyroidism E21.3 ; Hypercholesterolemia E78.0 and Arthritis M19.90 [facility] [id number] [place] [address] Aug, [facility] [address] [address] Aug, Deficiency of other specifie d B group vitamins E53.8 [facility] [address] [address] Aug, [facility] [address] [address] Jul, Urinary frequency R35.0 [facility] [address] [address] Jul, Urinary frequency R35.0 [facility] [id number] [place] [address] Jul, [facility] [address] [address] Jul, [facility] [id number] [address] [place] [address] Jun, Pain in left knee M25.562 [facility] [id number] [place] [address] Jun, [facility] [id number] [place] [address] May, Swelling of left knee joint M25.462 [facility] [address] [id number] [address] [place] [address] May, [facility] [address] [facility] [id number] [address] [place] [address] May, [facility] [address] [facility] [id number] [address] [place] [address] May, [facility] [address] [facility] [id number] [address] [place] [address] Apr, Renal insufficiency N28.9 an d Chronic kidney disease, stage 4 (severe) N18.4 [facility] [address] [facility] [id number] [address] [place] [address] Apr, Unspecified kidney failure N 19 [facility] [address] [facility] [id number] [address] [place] [address] Apr, Unspecified kidney failure N 19 [facility] [address] [facility] [id number] [address] [place] [address] Apr, [facility] [address] [facility] [id number] [address] [place] [address] Apr, Hyperparathyroidism, unspeci fied 252.00 [facility] [address] [facility] [id number] [address] [place] [address] Apr, [facility] [address] [facility] [id number] [address] [place] [address] Mar, [facility] [address] [facility] [id number] [address] [place] [address] Mar, [facility] [address] [facility] [id number] [address] [place] [address] Mar, Hyperparathyroidism, unspeci fied 252.00 [facility] [address] [facility] [id number] [address] [place] [address] Feb, [facility] [address] [facility] [id number] [address] [place] [address] Feb, Otalgia 388.70 [facility] [address] [id number] [address] [place] [address] Feb, [facility] [address] [facility] [id number] [address] [place] [address] Feb, [facility] [address] [facility] [id number] [address] [place] [address] Jan, [facility] [address] [id number] [address] [place] [address] Jan, Hyperparathyroidism, unspeci fied 252.00 [facility] [address] [id number] [address] [place] [address] Jan, [facility] [address] [facility] [id number] [address] [place] [address] Jan, Other B-complex deficiencies 266.2 and Hyperparathyroidism, unspecified 252.00 [facility] [address] [id number] [address] [place] [address] Jan, [facility] [address] [facility] [id number] [address] [place] [address] Jan, [facility] [address] [facility] [id number] [address] [place] [address] Jan, [facility] [address] [facility] [id number] [address] [place] [address] Dec, [facility] [address] [facility] [id number] [address] [place] [address] Dec, [facility] [address] [facility] [id number] [address] [place] [address] Dec, [facility] [address] [facility] [id number] [address] [place] [address] Nov, Routine check-up V70.0 and P re-op exam V72.84 [facility] [address] [id number] [address] [place] [address] Nov, [facility] [address] [id number] [address] [place] [address], [place] [id number] Nov, [facility] [address] [id number] [address] [place] [address], [place] [id number] October, [facility] [address] [id number] [address] [place] [address], [place] [id number] October, Other B-complex deficiencies 266.2 [facility] [address] [id number] [address] [place] [address], [place] [id number] October, [facility] [address] [id number] [address] [place] [address], [place] [id number] Sep, [facility] [address] [id number] [address] [place] [address], [place] [id number] Sep, [facility] [address] [id number] [address] [place] [address], [place] [id number] Aug, [facility] [address] [id number] [address] [place] [address] Aug, [facility] [address] [id number] [address] [place] [address], [place] [id number] Aug, [facility] [address] [id number] [address] [place] [address] Aug, [facility] [address] [id number] [address] [place] [address] Aug, [facility] [address] [id number] [address] [place] [address] Aug, [facility] [address] [id number] [address] [place] [address], [place] [id number] Jul, [facility] [address] [id number] [address] [place] [address] Jul, [facility] [address] [id number] [address] [place] [address] 17 Jul, 2014 [facility] [address] [id number] [address] [place] [address], [place] [id number] Jul, 2014 [facility] [address] [id number] [address] [place] [address], [place] [id number] Jul, 2014 [facility] [address] [id number] [address] [place] [address], [place] [id number] Jul, 2014 [facility] [address] [id number] [address] [place] [address], [place] [id number] Jul, 2014 [facility] [address] [id number] [address] [place] [address], [place] [id number] Jul, 2014 [facility] [address] [id number] [address] [place] [address], [place] [id number] Jul, 2014 [facility] [address] [id number] [address] [place] [address], [place] [id number] Jul, 2014 [facility] [address] [id number] [address] [place] [address], [place] [id number] Jul, 2014 [facility] [address] [id number] [address] [place] [address], [place] [id number] Jul, 2014 [facility] [address] [id number] [address] [place] [address], [place] [id number] Jul, [facility] [address] [id number] [address] [place] [address], [place] [id number] Jul, [facility] [address] [id number] [address] [place] [id number] Jun, [facility] [address] [id number] [address] [place] [address], [place] [id number] Jun, [facility] [address] [id number] [address] [place] [address], [place] [id number] Jun, [facility] [address] [id number] [address] [place] [id number] Jun, [facility] [address] [id number] [address] [place] [id number] Jun, [facility] [address] [id number] [address] [place] [address], [place] [id number] Jun, [facility] [address] [id number] [address] [place] [address], [place] [id number] Jun, [facility] [address] [id number] [address] [place] [address], [place] [id number] Jun, [facility] [address] [id number] [address] [place] [address], [place] [id number] Jun, [facility] [address] [id number] [address] [place] [address], [place] [id number] Jun, [facility] [address] [id number] [address] [place] [address], [place] [id number] Jun, [facility] [address] [id number] [address] [place] [address], [place] [id number] Jun, [facility] [address] [id number] [address] [place] [address], [place] [id number] Jun, [facility] [address] [id number] [address] [place] [address], [place] [id number] Jun, [facility] [address] [id number] [address] [place] [address], [place] [id number] May, [facility] [address] [id number] [address] [place] [address], [place] [id number] May, [facility] [address] [id number] [address] [place] [address], [place] [id number] May, [facility] [address] [id number] [address] [place] [address], [place] [id number] May, [facility] [address] [id number] [address] [place] [address], [place] [id number] Apr, [facility] [address] [id number] [address] [place] [address], [place] [id number] Apr, [facility] [address] [id number] [address] [place] [address], [place] [id number] Apr, [facility] [address] [id number] [address] [place] [address], [place] [id number] Apr, [facility] [address] [id number] [address] [place] [address], [place] [id number] Apr, [facility] [address] [id number] [address] [place] [address], [place] [id number] Apr, [facility] [address] [id number] [address] [place] [address], [place] [id number] Mar, [facility] [address] [id number] [address] [place] [address], [place] [id number] Mar, [facility] [address] [id number] [address] [place] [address], [place] [id number] Mar, [facility] [address] [id number] [address] [place] [address], [place] [id number] Mar, [facility] [address] [id number] [address] [place] [address], [place] [id number] Mar, [facility] [address] [id number] [address] [place] [address], [place] [id number] Mar, [facility] [address] [id number] [address] [place] [address], [place] [id number] Mar, [facility] [address] [id number] [address] [place] [address], [place] [id number] Mar, [facility] [address] [id number] [address] [place] [address], [place] [id number] Mar, [facility] [address] [id number] [address] [place] [address], [place] [id number] Mar, [facility] [address] [id number] [address] [place] [address], [place] [id number] Mar, [facility] [address] [id number] [address] [place] [address], [place] [id number] Mar, [facility] [address] [id number] [address] [place] [address], [place] [id number] Mar, [facility] [address] [id number] [address] [place] [address], [place] [id number] Feb, [facility] [address] [id number] [address] [place] [address], [place] [id number] Feb, [facility] [address] [id number] [address] [place] [address], [place] [id number] Feb, [facility] [address] [id number] [address] [place] [address], [place] [id number] Feb, [facility] [address] [id number] [address] [place] [address], [place] [id number] Feb, [facility] [address] [id number] [address] [place] [address], [place] [id number] Feb, [facility] [address] [id number] [address] [place] [address], [place] [id number] Feb, [facility] [address] [id number] [address] [place] [address], [place] [id number] Feb, [facility] [address] [id number] [address] [place] [address], [place] [id number] Feb, [facility] [address] [id number] [address] [place] [address], [place] [id number] Feb, [facility] [address] [id number] [address] [place] [address], [place] [id number] Jan, [facility] [address] [id number] [address] [place] [address], [place] [id number] Jan, [facility] [address] [id number] [address] [place] [address], [place] [id number] Dec, [facility] [address] [id number] [address] [place] [address], [place] [id number] Dec, [facility] [address] [id number] [address] [place] [address], [place] [id number] Dec, [facility] [address] [id number] [facility] [id number] Dec, [facility] [address] [id number] [facility] [place] [id number] Dec, [facility] [address] [id number] [address] [place] [address], [place] [id number] Dec, [facility] [address] [id number] [address] [place] [address], [place] [id number] Nov, [facility] [address] [id number] [address] [place] [address], [place] [id number] Nov, [facility] [address] [id number] [address] [place] [address], [place] [id number] Nov, [facility] [address] [id number] [address] [place] [address], [place] [id number] Nov, [facility] [address] [id number] [address] [place] [address], [place] [id number] October, [facility] [address] [id number] [address] [place] [address], [place] [id number] October, [facility] [address] [id number] [address] [place] [address], [place] [id number] October, [facility] [address] [id number] [address] [place] [address], [place] [id number] October, [facility] [address] [id number] [address] [place] [address], [place] [id number] October, [facility] [address] [id number] [address] [place] [address], [place] [id number] October, [facility] [address] [id number] [address] [place] [address], [place] [id number] October, [facility] [address] [id number] [address] [place] [address], [place] [id number] October, [facility] [address] [id number] [address] [place] [address], [place] [id number] October, [facility] [address] [id number] [address] [place] [address], [place] [id number] October, [facility] [address] [id number] [address] [place] [address], [place] [id number] October, [facility] [address] [id number] [address] [place] [address], [place] [id number] October, [facility] [address] [id number] [address] [place] [address], [place] [id number] October, [facility] [address] [id number] [address] [place] [address], [place] [id number] October, [facility] [address] [id number] [address] [place] [address], [place] [id number] October, [facility] [address] [id number] [address] [place] [address], [place] [id number] October, [facility] [address] [id number] [address] [place] [address], [place] [id number] Sep, [facility] [address] [id number] [address] [place] [address], [place] [id number] Sep, [facility] [address] [id number] [address] [place] [address], [place] [id number] Sep, [facility] [address] [id number] [address] [place] [address], [place] [id number] Sep, [facility] [address] [id number] [address] [place] [address], [place] [id number] Sep, [facility] [address] [id number] [address] [place] [address], [place] [id number] Sep, [facility] [address] [id number] [address] [place] [address], [place] [id number] Aug, [facility] [address] [id number] [address] [place] [address], [place] [id number] Aug, [facility] [address] [id number] [facility] [place] [id number] Aug, [facility] [address] [id number] [address] [place] [address], [place] [id number] Aug, [facility] [address] [id number] [address] [place] [address], [place] [id number] Aug, [facility] [address] [id number] [address] [place] [address], [place] [id number] Aug, [facility] [address] [id number] [address] [place] [address], [place] [id number] Jul, [facility] [address] [id number] [address] [place] [address], [place] [id number] Jul, [facility] [address] [id number] [address] [place] [address], [place] [id number] Jul, [facility] [address] [id number] [address] [place] [address], [place] [id number] Jul, [facility] [address] [id number] [address] [place] [address], [place] [id number] Jun, [facility] [address] [id number] [address] [place] [address], [place] [id number] Jun, [facility] [address] [id number] [address] [place] [address], [place] [id number] May, [facility] [address] [id number] [address] [place] [address], [place] [id number] May, [facility] [address] [id number] [address] [place] [address], [place] [id number] May, [facility] [address] [id number] [address] [place] [address], [place] [id number] May, [facility] [address] [id number] [address] [place] [address], [place] [id number] May, [facility] [address] [id number] [address] [place] [address], [place] [id number] 13 Apr, 2013 [facility] [address] [id number] [address] [place] [address], [place] [id number] 13 Apr, 2013 [facility] [address] [id number] [address] [place] [address], [place] [id number] Apr, [facility] [address] [id number] [address] [place] [address], [place] [id number] Apr, [facility] [address] [id number] [address] [place] [address], [place] [id number] Apr, [facility] [address] [id number] [address] [place] [address], [place] [id number] 04 Apr, 2013 [facility] [address] [id number] [address] [place] [address], [place] [id number] 15 Mar, 2013 [facility] [address] [id number] [address] [place] [address], [place] [id number] 15 Mar, 2013 [facility] [address] [id number] [address] [place] [address], [place] [id number] 14 Mar, 2013 [facility] [address] [id number] [address] [place] [address], [place] [id number] 14 Mar, 2013 [facility] [address] [id number] [address] [place] [address], [place] [id number] 11 Mar, 2013 [facility] [address] [id number] [address] [place] [address], [place] [id number] 11 Mar, 2013 [facility] [address] [id number] [address] [place] [address], [place] [id number] 23 Feb, 2013 [facility] [address] [id number] [address] [place] [address], [place] [id number] 19 Feb, 2013 [facility] [address] [id number] [address] [place] [address], [place] [id number] 04 Feb, 2013 [facility] [address] [id number] [address] [place] [address], [place] [id number] Jan, [facility] [address] [id number] [address] [place] [address], [place] [id number] Jan, [facility] [address] [id number] [address] [place] [address], [place] [id number] Jan, [facility] [address] [id number] [address] [place] [address], [place] [id number] Jan, [facility] [address] [id number] [address] [place] [address], [place] [id number] Jan, [facility] [address] [id number] [address] [place] [address], [place] [id number] Jan, [facility] [address] [id number] [address] [place] [address], [place] [id number] Dec, [facility] [address] [id number] [address] [place] [address], [place] [id number] Dec, [facility] [address] [id number] [address] [place] [address], [place] [id number] Dec, [facility] [address] [id number] [address] [place] [address], [place] [id number] Dec, [facility] [address] [id number] [address] [place] [address], [place] [id number] Dec, [facility] [address] [id number] [address] [place] [address], [place] [id number] Dec, [facility] [address] [id number] [address] [place] [address], [place] [id number] Nov, [facility] [address] [id number] [address] [place] [address], [place] [id number] Nov, [facility] [address] [id number] [address] [place] [address], [place] [id number] Nov, [facility] [address] [id number] [address] [place] [address], [place] [id number] Nov, [facility] [address] [id number] [address] [place] [address], [place] [id number] Nov, [facility] [address] [id number] [address] [place] [address], [place] [id number] Nov, [facility] [address] [id number] [address] [place] [address], [place] [id number] October, [facility] [address] [id number] [address] [place] [address], [place] [id number] October, [facility] [address] [id number] [address] [place] [address], [place] [id number] October, [facility] [address] [id number] [address] [place] [address], [place] [id number] October, [facility] [address] [id number] [address] [place] [address], [place] [id number] October, [facility] [address] [id number] [address] [place] [address], [place] [id number] Sep, [facility] [address] [id number] [address] [place] [address], [place] [id number] Sep, [facility] [address] [id number] [address] [place] [address], [place] [id number] Sep, [facility] [address] [id number] [address] [place] [address], [place] [id number] Sep, [facility] [address] [id number] [address] [place] [address], [place] [id number] Sep, [facility] [address] [id number] [address] [place] [address], [place] [id number] Aug, [facility] [address] [id number] [address] [place] [address], [place] [id number] Aug, [facility] [address] [id number] [address] [place] [address], [place] [id number] Aug, [facility] [address] [id number] [address] [place] [address], [place] [id number] Jul, [facility] [address] [id number] [address] [place] [address], [place] [id number] Jul, 2012 [facility] [address] [id number] [address] [place] [address], [place] [id number] Jul, 2012 [facility] [address] [id number] [address] [place] [address], [place] [id number] 08 Jul, 2012 [facility] [address] [id number] [address] [place] [address], [place] [id number] Jul, [facility] [address] [id number] [address] [place] [address], [place] [id number] Jul, [facility] [address] [id number] [address] [place] [address], [place] [id number] Jun, [facility] [address] [id number] [address] [place] [address], [place] [id number] Apr, [facility] [address] [id number] [address] [place] [id number] Apr, [facility] [address] [id number] [address] [place] [address], [place] [id number] Apr, [facility] [address] [id number] [address] [place] [id number] Apr, [facility] [address] [id number] [address] [place] [address] Mar, [facility] [address] [id number] [address] [place] [address] Mar, [facility] [address] [id number] [address] [place] [id number] Mar, [facility] [address] [id number] [address] [place] [address] Mar, [facility] [address] [id number] [address] [place] [address] Mar, [facility] [address] [id number] [address] [place] [address] Feb, [facility] [address] [id number] [address] [place] [id number] Jan, [facility] [address] [id number] [address] [place] [address] Jan, [facility] [address] [id number] [address] [place] [id number] Jan, [facility] [address] [id number] [address] [place] [id number] Dec, [facility] [address] [id number] [address] [place] [id number] Nov, [facility] [address] [id number] [address] [place] [address] Nov, [facility] [address] [id number] [address] [place] [address] Nov, [facility] [address] [id number] [address] [place] [address] Nov, [facility] [address] [id number] [address] [place] [address] Nov, [facility] [address] [id number] [address] [place] [address] October, [facility] [address] [id number] [address] [place] [id number] October, [facility] [address] [id number] [address] [place] [address] October, [facility] [address] [id number] [address] [place] [address] October, [facility] [address] [id number] [address] [place] [id number] October, IMMUNIZATIONS No Known Immunizations SOCIAL HISTORY Never Assessed REASON FOR VISIT Controlled Refill Request PLAN OF CARE VITAL SIGNS MEDICATIONS Medication Instructions Dosage Frequency Start Date End Date Duration S ashly Hydrocodone-Acetaminophen 10-325 MG Orally 3 times a day 1 tablet a s needed 8h Dec, 28 days Active RESULTS No Results PROCEDURES [...]
--- OUTSIDE RECORDS SUMMARY | 2020-01-25 08:22 | XMS REPORT ---
Author Author Velma CORDERO Organization [facility] Address [address] [place] [address] Care Team Providers Care Guide Travel Name Role Phone STEPHAN CORDERO Unavailable PROBLEMS Type Condition ICD9-CM Code OPB87-TF Code Onset Dates Condition S tatus SNOMED Code Problem Corns L84 Active 386402749 Problem Primary insomnia F51.01 Active 397 2004 Problem Hyperparathyroidism E21.3 Active 67147121 Problem Hypercholesteremia E78.0 Active 1 3268303 Problem Mood disorder F39 Active 592081 05 Problem Arthritis M19.90 Active 9918841 Problem 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 Active 98884481 Problem Myalgia M79.1 Active 65923531 Problem Chronic kidney disease, stage 4 (severe) N18.4 Active 715522867 Problem Primary osteoarthritis of left knee M17.12 Active [id number] Problem Irritable bowel syndrome with both constipation and diarrh ea K58.2 Active 82385191 Problem Other chronic pain G89.29 Active 8 0325239 Problem BPV (benign positional vertigo), bilateral H81.13 Active 227467504 Problem Hyperparathyroidism, unspecified E21.3 Active 16288625 Problem 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 [id number] [address] [place] [address] Sep, Hyperparathyroidism, unspeci fied E21.3 [facility] [address] [facility] [id number] [address] [place] [address] Aug, Hyperparathyroidism, unspeci fied E21.3 [place] [address] [id number] [address] [place] [address] Aug, Pain in left knee M25.562 ; Other chronic pain G89.29 ; Unspecified inflammatory spondylopathy, sacral and sacrococcygeal region M46.98 ; Chronic kidney disease, stage 4 (severe) N18.4 and Hyperparathyroidism, unspecified E21.3 [place] [address] [id number] [address] [place] [address] Jul, [place] [address] [id number] [address] [place] [address] Jul, Arthritis M19.90 [place] [address] [facility] [id number] [address] [place] [address] Jun, Knee pain, left M25.562 [place] [address] [id number] [address] [place] [address] May, Arthritis M19.90 [place] [address] [facility] [id number] [address] [place] [address] Apr, Well woman exam without gyne cological exam Z00.00 and Screening for breast cancer Z12.39 [place] [address] [facility] [id number] [address] [place] [address] Mar, Arthritis M19.90 [place] [address] [id number] [address] [place] [address] Mar, Arthritis M19.90 [place] [address] [id number] [address] [place] [address] Mar, [place] [address] [facility] [id number] [address] [place] [address] Mar, Arthritis M19.90 and Encount er for immunization Z23 [place] [address] [facility] [id number] [address] [place] [address] Feb, Arthritis M19.90 [facility] [address] [id number] [address] [place] [address] Feb, [facility] [address] [id number] [address] [place] [address] Feb, Other specified disorders of bone density and structure, unspecified site M85.80 [facility] [address] [id number] [address] [place] [address] Jan, Arthritis M19.90 [facility] [address] [id number] [address] [place] [address] Dec, Arthritis M19.90 [facility] [address] [id number] [address] [place] [address] Nov, Inflammatory spondylopathy o f sacral region M46.98 [facility] [address] [id number] [address] [place] [address] Nov, [facility] [address] [facility] [id number] [address] [place] [address] Nov, Labyrinthitis of left ear H8 3.02 [facility] [address] [facility] [id number] [address] [place] [address] Nov, Arthritis M19.90 [facility] [address] [facility] [id number] [address] [place] [address] 15 Sep, 2018 Arthritis M19.90 [facility] [address] [facility] [id number] [address] [place] [address] Sep, Renal insufficiency N28.9 an d Unspecified kidney failure N19 [facility] [address] [id number] [address] [place] [address] Sep, Renal insufficiency N28.9 an d Unspecified kidney failure N19 [facility] [address] [facility] [id number] [address] [place] [address] Sep, Arthritis M19.90 [facility] [address] [facility] [id number] [address] [place] [address] 18 Aug, 2018 Exercise counseling Z71.82 [facility] [address] [id number] [address] [place] [phone] 08 Aug, 2018 [facility] [address] [facility] [id number] [address] [place] [address] 27 Jul, 2018 Labyrinthitis of left ear H8 3.02 [facility] [address] [facility] [id number] [address] [place] [address] 22 Jul, 2018 Labyrinthitis of left ear H8 3.02 [facility] [address] [id number] [address] [place] [address] 19 Jul, 2018 Exercise counseling Z71.[address] [place] [address] [facility] [id number] [address] [place] [address] 18 Jul, 2018 [place] [address] [facility] [id number] [address] [place] [address] 14 Jul, 2018 Arthritis M19.90 [place] [address] [facility] [id number] [address] [place] [address] 13 Jul, 2018 Encounter for Medicare annua l wellness exam Z00.00 ; Chronic kidney disease, stage 4 (severe) N18.4 ; Body mass index (BMI) of 40.0-44.9 in adult Z68.41 ; Hyperparathyroidism E21.3 and BMI 40.0-44.9, adult Z68.41 [place] [address] [facility] [id number] [address] [place] [address] 13 Jul, 2018 Encounter for Medicare annua l wellness exam Z00.00 ; Chronic kidney disease, stage 4 (severe) N18.4 ; Hyperparathyroidism E21.3 ; Body mass index (BMI) of 40.0-44.9 in adult Z68.41 and Encounter for immunization Z23 [facility] [address] [facility] [id number] [address] [place] [address] 11 Jul, 2018 Tail bone pain M53.3 [facility] [address] [facility] [id number] [address] [place] [address] Jun, Exercise counseling Z71.82 [facility] [address] [id number] [address] [place] [address] Jun, Labyrinthitis of left ear H8 3.02 [facility] [address] [id number] [address] [place] [address] Jun, Tail bone pain M53.3 ; Irrit able bowel syndrome with both constipation and diarrhea K58.2 and Dysfunction of left eustachian tube H69.82 [facility] [address] [id number] [address] [place] [address] Jun, Exercise counseling Z71.82 [facility] [address] [id number] [address] [place] [address] Jun, Arthritis M19.90 [facility] [address] [id number] [address] [place] [address] Jun, Irritable bowel syndrome wit h both constipation and diarrhea K58.2 ; Tail bone pain M53.3 and Dysfunction of left eustachian tube H69.82 [facility] [address] [id number] [address] [place] [address] Jun, Exercise counseling Z71.82 [facility] [address] [id number] [address] [place] [address] Jun, Exercise counseling Z71.82 [facility] [address] [id number] [address] [place] [address] Jun, Labyrinthitis of left ear H8 3.02 [facility] [address] [id number] [address] [place] [address] May, Exercise counseling Z71.82 [facility] [address] [id number] [address] [place] [address] May, Arthritis M19.90 [facility] [address] [id number] [address] [place] [address] May, Exercise counseling Z71.82 [facility] [address] [id number] [address] [place] [address] May, Exercise counseling Z71.82 [facility] [address] [id number] [address] [place] [address] May, Labyrinthitis of left ear H8 3.02 [facility] [address] [id number] [address] [place] [address] May, Exercise counseling Z71.82 [facility] [address] [id number] [address] [place] [phone] Apr, Arthritis M19.90 [facility] [address] [id number] [address] [place] [address] Apr, Exercise counseling Z71.82 [facility] [address] [id number] [address] [place] [address] Apr, Exercise counseling Z71.82 [facility] [address] [id number] [address] [place] [address] Apr, Primary osteoarthritis of le ft knee M17.12 [facility] [address] [id number] [address] [place] [id number] 08 Apr, 2018 Labyrinthitis of left ear H8 3.02 [facility] [address] [id number] [address] [place] [phone] 30 Mar, 2018 Arthritis M19.90 [facility] [address] [id number] [address] [place] [address] Mar, [facility] [address] [id number] [address] [place] [address] Mar, Chronic kidney disease, stag e 4 (severe) N18.4 [facility] [address] [id number] [address] [place] [id number] 15 Mar, 2018 Chronic kidney disease, stag e 4 (severe) N18.4 [facility] [address] [address] Mar, Labyrinthitis of left ear H8 3.02 [place] [address] [address] Mar, Chronic kidney disease, stag e 4 (severe) N18.4 ; Knee pain, left anterior M25.562 ; Deficiency of other specified B group vitamins E53.8 and Encounter for immunization Z23 [place] [address] [address] Mar, Arthritis M19.90 [place] [address] [address] Feb, Labyrinthitis of left ear H8 3.02 [place] [address] [address] Feb, Arthritis M19.90 [place] [address] [address] Jan, Labyrinthitis of left ear H8 3.02 [place] [address] [address] Jan, Arthritis M19.90 [place] [address] [address] Dec, Labyrinthitis of left ear H8 3.02 [place] [address] [address] Nov, Arthritis M19.90 [place] [address] [place] [id number] [place] [address] Nov, Labyrinthitis of left ear H8 3.02 [place] [address] [place] [id number] [place] [address] Nov, BMI 40.0-44.9, adult Z68.41 ; Chronic kidney disease, stage 4 (severe) N18.4 and Acute right-sided thoracic back pain M54.6 [facility] [address] [id number] [address] [place] [address] October, Labyrinthitis of left ear H8 3.02 and Arthritis M19.90 [facility] [address] [facility] [id number] [address] [place] [address] Sep, BPV (benign positional verti go), bilateral H81.13 ; Dysfunction of left eustachian tube H69.82 and BMI 40.0-44.9, adult Z68.41 [facility] [address] [facility] [id number] [address] [place] [address] Sep, Labyrinthitis of left ear H8 3.02 and Arthritis M19.90 [facility] [address] [facility] [id number] [address] [place] [address] Sep, [place] [address] [place] [id number] [address] [place] [address] Sep, [facility] [address] [facility] [id number] [address] [place] [address] Sep, Chronic kidney disease, stag e 4 (severe) N18.4 [place] [address] [facility] [id number] [address] [place] [address] Sep, Chronic kidney disease, stag e 4 (severe) N18.4 [place] [address] [facility] [id number] [address] [place] [phone] Aug, Labyrinthitis of left ear H8 3.02 and Arthritis M19.90 [facility] [address] [id number] [address] [place] [address] Aug, [facility] [address] [facility] [id number] [address] [place] [address] Jul, [facility] [address] [facility] [id number] [address] [place] [address] Jul, Arthritis M19.90 and Labyrin thitis of left ear H83.02 [place] [address] [facility] [id number] [address] [place] [phone] Jul, [place] [address] [place] [id number] [place] [address] Jun, [place] [address] [place] [id number] [address] [place] [address] Jun, Arthritis M19.90 and Labyrin thitis of left ear H83.02 [place] [address] [address] Jun, Pre-op evaluation Z01.818 ; BMI 40.0-44.9, adult Z68.41 and Encounter for immunization Z23 [place] [address] [place] [id number] [place] [phone] May, Arthritis M19.90 and Labyrin thitis of left ear H83.02 [place] [address] [address] Apr, Labyrinthitis of left ear H8 3.02 [place] [address] [address] Apr, Arthritis M19.90 and Labyrin thitis of left ear H83.02 [place] [address] [place] [id number] [place] [address] Mar, Arthritis M19.90 and Labyrin thitis of left ear H83.02 [place] [address] [place] [id number] [address] [place] [address] Mar, Chronic kidney disease, stag e 4 (severe) N18.4 [place] [address] [place] [id number] [address] [place] [address] 06 Feb, 2017 Arthritis M19.90 and Labyrin thitis of left ear H83.02 [place] [address] [place] [id number] [address] [place] [address] Jan, Labyrinthitis of left ear H8 3.02 and Deficiency of other specified B group vitamins E53.8 [facility] [address] [id number] [address] [place] [address] Dec, Arthritis M19.90 [facility] [address] [id number] [address] [place] [address] Dec, BPV (benign positional verti go), bilateral H81.13 [facility] [address] [id number] [address] [place] [address] Dec, [facility] [address] [id number] [address] [place] [address] Dec, [facility] [address] [id number] [address] [place] [address] Dec, [facility] [address] [facility] [id number] [address] [place] [address] Nov, Arthritis M19.90 and Deficie ncy of other specified B group vitamins E53.8 [facility] [address] [id number] [address] [place] [address] Nov, Arthritis M19.90 [facility] [address] [id number] [address] [place] [address] Nov, Hyperparathyroidism E21.3 [facility] [address] [facility] [id number] [address] [place] [address] October, [facility] [address] [facility] [id number] [address] [place] [address] October, Hyperparathyroidism E21.3 [facility] [address] [id number] [address] [place] [address] October, [facility] [address] [facility] [id number] [address] [place] [address] October, Renal insufficiency N28.9 an d Hyperparathyroidism E21.3 [facility] [address] [facility] [id number] [address] [place] [address] October, [facility] [address] [place] [id number] [address] [place] [address] October, Renal insufficiency N28.9 an d Hyperparathyroidism E21.3 [facility] [address] [place] [id number] [address] [place] [address] October, Arthritis M19.90 [facility] [address] [address] Sep, [facility] [address] [address] Sep, Lumbar neuritis M54.16 ; Tho racic abscess J86.9 and Deficiency of other specified B group vitamins E53.8 [facility] [address] [place] [id number] [address] [place] [address] Sep, [facility] [address] [address] Aug, Arthritis M19.90 [facility] [address] [place] [id number] [address] [place] [address] Aug, Hyperparathyroidism E21.3 [facility] [address] [address] Aug, Hyperparathyroidism E21.3 [facility] [address] [address] Aug, Arthritis M19.90 [facility] [address] [place] [id number] [address] [place] [address] Jul, Mass of throat R22.1 [facility] [address] [address] Jul, [facility] [address] [place] [id number] [address] [place] [address] Jul, Arthritis M19.90 [facility] [address] [place] [id number] [address] [place] [address] Jun, Arthritis M19.90 [facility] [address] [facility] [id number] [address] [place] [address] Jun, [facility] [address] [facility] [id number] [address] [place] [address] Jun, Renal insufficiency N28.9 an d Parathyroid abnormality E21.5 [facility] [address] [facility] [id number] [address] [place] [phone] 05 Jun, 2016 Medicare welcome exam Z00.00 ; Encounter for immunization Z23 ; Arthritis M19.90 ; Medicare annual wellness visit, initial Z00.00 ; Medicare annual wellness visit, subsequent Z00.00 and Deficiency of other specified B group vitamins E53.8 [facility] [address] [facility] [id number] [address] [place] [phone] 29 May, 2016 Renal insufficiency N28.9 an d Parathyroid abnormality E21.5 [facility] [address] [facility] [id number] [address] [place] [address] May, Renal insufficiency N28.9 [facility] [address] [facility] [id number] [address] [place] [id number] May, Renal insufficiency N28.9 [facility] [address] [facility] [id number] [address] [place] [phone] 14 May, 2016 [facility] [address] [facility] [id number] [address] [place] [address] Apr, [facility] [address] [facility] [id number] [address] [place] [address] 16 Apr, 2016 [facility] [address] [facility] [id number] [address] [place] [address] 14 Apr, 2016 Mass of throat R22.1 [facility] [address] [facility] [id number] [address] [place] [phone] 10 Apr, 2016 [facility] [address] [facility] [id number] [address] [place] [phone] 10 Apr, 2016 Mass of throat R22.1 [facility] [address] [id number] [address] [place] [phone] 04 Apr, 2016 Mass of throat R22.1 [facility] [address] [id number] [address] [place] [phone] Mar, [facility] [address] [facility] [id number] [address] [place] [phone] Mar, [facility] [address] [id number] [address] [place] [phone] Mar, [facility] [address] [facility] [id number] [address] [place] [phone] 24 Mar, 2016 Parathyroid abnormality E21. 5 and Encounter for immunization Z23 [facility] [address] [facility] [id number] [address] [place] [phone] 17 Mar, 2016 [facility] [address] [facility] [id number] [address] [place] [phone] Mar, [facility] [address] [facility] [id number] [address] [place] [phone] 21 Feb, 2016 Renal insufficiency N28.9 an d Hyperparathyroidism E21.3 [facility] [address] [id number] [address] [place] [phone] 19 Feb, 2016 [facility] [address] [facility] [id number] [address] [place] [phone] 15 Feb, 2016 Renal insufficiency N28.9 an d Hyperparathyroidism E21.3 [facility] [address] [id number] [address] [place] [phone] 14 Feb, 2016 [facility] [address] [id number] [address] [place] [phone] 12 Feb, 2016 [facility] [address] [facility] [id number] [address] [place] [phone] 09 Feb, 2016 [facility] [address] [facility] [id number] [address] [place] [phone] Jan, [facility] [address] [facility] [facility] [id number] [address] [place] [address] Jan, Arthritis M19.90 ; Lumbago w ith sciatica, right side M54.41 and Other chronic pain G89.29 [facility] [address] [facility] [id number] [address] [place] [id number] Jan, [facility] [address] [facility] [id number] [address] [place] [address] Dec, Arthritis M19.90 ; Lumbago w ith sciatica, right side M54.41 and Other chronic pain G89.29 [place] [address] [place] [id number] [address] [place] [id number] 16 Nov, 2015 Deficiency of other specifie d B group vitamins E53.8 ; Primary insomnia F51.01 ; Mood disorder F39 and Lumbago with sciatica, right side M54.41 [place] [address] [place] [id number] [address] [place] [address] Nov, Hyperparathyroidism E21.3 [place] [address] [place] [id number] [address] [place] [phone] Nov, Unspecified kidney failure N 19 and Hyperparathyroidism E21.3 [place] [address] [place] [id number] [address] [place] [address] October, Hyperparathyroidism E21.3 [place] [address] [place] [id number] [address] [place] [address] October, [facility] [address] [place] [place] [id number] [address] [place] [address] October, Hyperparathyroidism E21.3 [place] [address] [place] [id number] [address] [place] [address] October, Hyperparathyroidism E21.3 [facility] [address] [facility] [id number] [address] [place] [address] Sep, Hyperparathyroidism E21.3 ; Hypercholesterolemia E78.0 and Arthritis M19.90 [place] [address] [place] [id number] [address] [place] [address] Aug, [facility] [address] [facility] [id number] [address] [place] [address] Aug, Deficiency of other specifie d B group vitamins E53.8 [facility] [address] [facility] [id number] [address] [place] [address] Aug, [facility] [address] [place] [place] [id number] [place] [phone] Jul, Urinary frequency R35.0 [facility] [address] [facility] [id number] [address] [place] [address] Jul, Urinary frequency R35.0 [facility] [address] [facility] [id number] [address] [place] [phone] Jul, [facility] [address] [place] [id number] [place] [address] Jul, [facility] [address] [facility] [id number] [address] [place] [address] Jun, Pain in left knee M25.562 [facility] [address] [place] [place] [id number] [address] [place] [address] Jun, [facility] [address] [place] [place] [id number] [address] [place] [address] May, Swelling of left knee joint M25.462 [facility] [address] [facility] [id number] [address] [place] [phone] May, [facility] [address] [facility] [id number] [address] [place] [address] May, [facility] [address] [place] [id number] [address] [place] [address] May, [facility] [address] [facility] [id number] [address] [place] [address] Apr, Renal insufficiency N28.9 an d Chronic kidney disease, stage 4 (severe) N18.4 [facility] [address] [facility] [id number] [address] [place] [address] Apr, Unspecified kidney failure N 19 [facility] [address] [facility] [id number] [address] [place] [address] Apr, Unspecified kidney failure N 19 [facility] [address] [facility] [id number] [address] [place] [phone] Apr, [facility] [address] [facility] [id number] [address] [place] [address] Apr, Hyperparathyroidism, unspeci fied 252.00 [facility] [address] [facility] [id number] [address] [place] [address] Apr, [facility] [address] [facility] [id number] [address] [place] [phone] Mar, [facility] [address] [facility] [id number] [address] [place] [address] Mar, [facility] [address] [facility] [id number] [address] [place] [address] Mar, Hyperparathyroidism, unspeci fied 252.00 [facility] [address] [facility] [id number] [address] [place] [phone] Feb, [facility] [address] [facility] [id number] [address] [place] [address] Feb, Otalgia 388.70 [facility] [address] [facility] [id number] [address] [place] [address] Feb, [facility] [address] [facility] [id number] [address] [place] [address] Feb, [facility] [address] [facility] [id number] [address] [place] [address] Jan, [facility] [address] [facility] [id number] [address] [place] [address] Jan, Hyperparathyroidism, unspeci fied 252.00 [facility] [address] [id number] [address] [place] [phone] Jan, [facility] [address] [id number] [address] [place] [address] Jan, Other B-complex deficiencies 266.2 and Hyperparathyroidism, unspecified 252.00 [facility] [address] [id number] [address] [place] [phone] Jan, [facility] [address] [id number] [address] [place] [address] Jan, [facility] [address] [id number] [address] [place] [address] Jan, [facility] [address] [id number] [address] [place] [address] Dec, [facility] [address] [id number] [address] [place] [address] Dec, [facility] [address] [id number] [address] [place] [address] Dec, [facility] [address] [id number] [address] [place] [address] Nov, Routine check-up V70.0 and P re-op exam V72.84 [facility] [address] [id number] [address] [place] [address] Nov, [facility] [address] [id number] [address] [place] [phone] Nov, [facility] [address] [id number] [address] [place] [address] October, [facility] [address] [id number] [address] [place] [address] October, Other B-complex deficiencies 266.2 [facility] [address] [id number] [address] [place] [id number] October, [facility] [address] [id number] [address] [place] [address], [place] [address] 14 Sep, 2014 [facility] [address] [id number] [address] [place] [address], [place] [address] 13 Sep, 2014 [facility] [address] [id number] [address] [place] [address], [place] [address] 20 Aug, 2014 [facility] [address] [id number] [address] [place] [address], [place] [address] 20 Aug, 2014 [facility] [address] [id number] [address] [place] [address], [place] [id number] 17 Aug, 2014 [facility] [address] [id number] [address] [place] [address], [place] [id number] 17 Aug, 2014 [facility] [address] [id number] [address] [place] [address], [place] [id number] 11 Aug, 2014 [facility] [address] [id number] [address] [place] [address], [place] [address] 11 Aug, 2014 [facility] [address] [id number] [address] [place] [address], [place] [address] 18 Jul, 2014 [facility] [address] [id number] [address] [place] [address], [place] [id number] 18 Jul, 2014 [facility] [address] [id number] [address] [place] [address], [place] [address] 17 Jul, 2014 [facility] [address] [id number] [address] [place] [address], [place] [id number] 17 Jul, 2014 [facility] [address] [id number] [address] [place] [address], [place] [id number] 12 Jul, 2014 [facility] [address] [id number] [address] [place] [address], [place] [address] 12 Jul, 2014 [facility] [address] [id number] [address] [place] [address], [place] [id number] 10 Jul, 2014 [facility] [address] [id number] [address] [place] [address], [place] [address] Jul, [facility] [address] [id number] [address] [place] [address], [place] [address] Jul, [facility] [address] [id number] [address] [place] [address], [place] [id number] Jul, [facility] [address] [id number] [address] [place] [address], [place] [address] Jul, 2014 [facility] [address] [id number] [address] [place] [address], [place] [address] Jul, 2014 [facility] [address] [id number] [address] [place] [address], [place] [address] Jul, [facility] [address] [id number] [address] [place] [address], [place] [id number] Jul, [facility] [address] [id number] [address] [place] [address], [place] [address] Jun, [facility] [address] [id number] [address] [place] [address], [place] [address] Jun, [facility] [address] [id number] [address] [place] [address], [place] [address] Jun, [facility] [address] [id number] [address] [place] [address], [place] [address] Jun, [facility] [address] [id number] [address] [place] [address], [place] [address] Jun, [facility] [address] [id number] [address] [place] [address], [place] [address] Jun, [facility] [address] [id number] [address] [place] [address], [place] [address] Jun, [facility] [address] [id number] [address] [place] [address], [place] [address] Jun, [facility] [address] [id number] [address] [place] [address], [place] [address] Jun, [facility] [address] [id number] [address] [place] [address], [place] [address] Jun, [facility] [address] [id number] [address] [place] [address], [place] [address] Jun, [facility] [address] [id number] [address] [place] [address], [place] [address] Jun, [facility] [address] [id number] [address] [place] [address], [place] [address] Jun, [facility] [address] [id number] [address] [place] [address], [place] [address] Jun, [facility] [address] [id number] [address] [place] [address], [place] [address] May, [facility] [address] [id number] [address] [place] [address], [place] [id number] May, [facility] [address] [id number] [address] [place] [address], [place] [address] May, [facility] [address] [id number] [address] [place] [address], [place] [address] May, [facility] [address] [id number] [address] [place] [address], [place] [address] Apr, [facility] [address] [id number] [address] [place] [address], [place] [address] Apr, [facility] [address] [id number] [address] [place] [address], [place] [address] Apr, [facility] [address] [id number] [address] [place] [address], [place] [address] Apr, [facility] [address] [id number] [address] [place] [address], [place] [address] Apr, [facility] [address] [id number] [address] [place] [address], [place] [address] Apr, [facility] [address] [id number] [address] [place] [address], [place] [address] Mar, [facility] [address] [id number] [address] [place] [address], [place] [address] 24 Mar, 2014 [facility] [address] [id number] [address] [place] [address], [place] [address] Mar, [facility] [address] [id number] [address] [place] [address], [place] [address] Mar, [facility] [address] [id number] [address] [place] [address], [place] [address] 15 Mar, 2014 [facility] [address] [id number] [address] [place] [address], [place] [address] 15 Mar, 2014 [facility] [address] [id number] [address] [place] [address], [place] [address] Mar, [facility] [address] [id number] [address] [place] [address], [place] [address] Mar, [facility] [address] [id number] [address] [place] [address], [place] [address] Mar, [facility] [address] [id number] [address] [place] [address], [place] [address] 07 Mar, 2014 [facility] [address] [id number] [address] [place] [id number] 07 Mar, 2014 [facility] [address] [id number] [address] [place] [address], [place] [address] 07 Mar, 2014 [facility] [address] [id number] [address] [place] [id number] 06 Mar, 2014 [facility] [address] [id number] [address] [place] [address], [place] [address] Feb, [facility] [address] [id number] [address] [place] [address], [place] [address] Feb, [facility] [address] [id number] [address] [place] [address], [place] [address] 23 Feb, 2014 [facility] [address] [id number] [address] [place] [address], [place] [address] 23 Feb, 2014 [facility] [address] [id number] [address] [place] [address] 19 Feb, 2014 [facility] [address] [id number] [address] [place] [address], [place] [address] 19 Feb, 2014 [facility] [address] [id number] [address] [place] [address], [place] [address] 13 Feb, 2014 [facility] [address] [id number] [address] [place] [address], [place] [address] 13 Feb, 2014 [facility] [address] [id number] [address] [place] [address], [place] [address] 12 Feb, 2014 [facility] [address] [id number] [address] [place] [address], [place] [address] Feb, [facility] [address] [id number] [address] [place] [address], [place] [address] 15 Jan, 2014 [facility] [address] [id number] [address] [place] [address], [place] [address] Jan, [facility] [address] [id number] [address] [place] [address], [place] [address] Dec, [facility] [address] [id number] [address] [place] [address], [place] [address] Dec, [facility] [address] [id number] [address] [place] [address], [place] [address] Dec, [facility] [address] [id number] [address] [place] [address], [place] [address] Dec, [facility] [address] [id number] [address] [place] [address], [place] [address] Dec, [facility] [address] [id number] [address] [place] [address], [place] [address] Dec, [facility] [address] [id number] [address] [place] [address], [place] [address] Nov, [facility] [address] [id number] [address] [place] [address], [place] [address] Nov, [facility] [address] [id number] [address] [place] [address] Nov, [facility] [address] [id number] [address] [place] [address] Nov, [facility] [address] [id number] [address] [place] [address], [place] [address] October, [facility] [address] [id number] [address] [place] [address], [place] [address] October, [facility] [address] [id number] [address] [place] [address], [place] [address] October, [facility] [address] [id number] [address] [place] [address], [place] [address] October, [facility] [address] [id number] [address] [place] [address], [place] [address] October, [facility] [address] [id number] [address] [place] [address], [place] [address] October, [facility] [address] [id number] [address] [place] [address], [place] [address] October, [facility] [address] [id number] [address] [place] [address], [place] [address] October, [facility] [address] [id number] [address] [place] [address], [place] [address] October, [facility] [address] [id number] [address] [place] [address], [place] [address] October, [facility] [address] [id number] [address] [place] [address], [place] [address] October, [facility] [address] [id number] [address] [place] [address], [place] [address] October, [facility] [address] [id number] [address] [place] [address], [place] [address] October, [facility] [address] [id number] [address] [place] [address] October, [facility] [address] [id number] [address] [place] [address], [place] [address] October, [facility] [address] [id number] [address] [place] [address], [place] [address] October, [facility] [address] [id number] [address] [place] [address], [place] [address] Sep, [facility] [address] [id number] [address] [place] [address], [place] [id number] Sep, [facility] [address] [id number] [address] [place] [address], [place] [id number] Sep, [facility] [address] [id number] [address] [place] [address], [place] [id number] Sep, [facility] [address] [id number] [address] [place] [address], [place] [id number] Sep, [facility] [address] [id number] [address] [place] [address], [place] [address] Sep, [facility] [address] [id number] [address] [place] [address], [place] [id number] Aug, [facility] [address] [id number] [address] [place] [address], [place] [id number] Aug, [facility] [address] [id number] [address] [place] [address], [place] [address] Aug, [facility] [address] [id number] [address] [place] [address], [place] [id number] Aug, [facility] [address] [id number] [address] [place] [address], [place] [id number] Aug, [facility] [address] [id number] [address] [place] [address], [place] [id number] Aug, [facility] [address] [id number] [address] [place] [address], [place] [id number] 11 Jul, 2013 [facility] [address] [id number] [address] [place] [address], [place] [id number] Jul, [facility] [address] [id number] [address] [place] [address], [place] [id number] Jul, [facility] [address] [id number] [address] [place] [address], [place] [id number] Jul, [facility] [address] [id number] [address] [place] [address], [place] [id number] Jun, [facility] [address] [id number] [address] [place] [address], [place] [id number] Jun, [facility] [address] [id number] [address] [place] [address], [place] [address] May, [facility] [address] [id number] [address] [place] [address], [place] [address] May, [facility] [address] [id number] [address] [place] [address], [place] [address] May, [facility] [address] [id number] [address] [place] [address], [place] [id number] May, [facility] [address] [id number] [address] [place] [address], [place] [id number] May, [facility] [address] [id number] [address] [place] [address], [place] [id number] Apr, [facility] [address] [id number] [address] [place] [address], [place] [id number] Apr, [facility] [address] [id number] [address] [place] [address], [place] [address] Apr, [facility] [address] [id number] [address] [place] [address], [place] [id number] Apr, [facility] [address] [id number] [address] [place] [address], [place] [id number] Apr, [facility] [address] [id number] [address] [place] [address], [place] [id number] 04 Apr, 2013 [facility] [address] [id number] [address] [place] [address], [place] [id number] 15 Mar, 2013 [facility] [address] [id number] [address] [place] [address], [place] [id number] 15 Mar, 2013 [facility] [address] [id number] [address] [place] [address], [place] [id number] 14 Mar, 2013 [facility] [address] [id number] [address] [place] [address], [place] [id number] 14 Mar, 2013 [facility] [address] [id number] [address] [place] [address], [place] [id number] 11 Mar, 2013 [facility] [address] [id number] [address] [place] [address], [place] [id number] Mar, [facility] [address] [id number] [address] [place] [address], [place] [id number] 23 Feb, 2013 [facility] [address] [id number] [address] [place] [address], [place] [id number] 19 Feb, 2013 [facility] [address] [id number] [address] [place] [address], [place] [id number] 04 Feb, 2013 [facility] [address] [id number] [address] [place] [address], [place] [id number] 30 Jan, 2013 [facility] [address] [id number] [address] [place] [address], [place] [id number] Jan, [facility] [address] [id number] [address] [place] [address], [place] [id number] Jan, [facility] [address] [id number] [address] [place] [address], [place] [id number] 16 Jan, 2013 [facility] [address] [id number] [address] [place] [address], [place] [address] Jan, [facility] [address] [id number] [address] [place] [address], [place] [address] Jan, [facility] [address] [id number] [address] [place] [address], [place] [id number] Dec, [facility] [address] [id number] [address] [place] [address], [place] [address] Dec, [facility] [address] [id number] [address] [place] [address], [place] [address] Dec, [facility] [address] [id number] [address] [place] [address], [place] [address] Dec, [facility] [address] [id number] [address] [place] [address], [place] [id number] Dec, [facility] [address] [id number] [address] [place] [address], [place] [id number] Dec, [facility] [address] [id number] [address] [place] [address], [place] [id number] Nov, [facility] [address] [id number] [address] [place] [address], [place] [id number] Nov, [facility] [address] [id number] [address] [place] [address], [place] [id number] Nov, [facility] [address] [id number] [address] [place] [address], [place] [address] Nov, [facility] [address] [id number] [address] [place] [address], [place] [id number] Nov, [facility] [address] [id number] [address] [place] [address], [place] [address] Nov, [facility] [address] [id number] [address] [place] [address], [place] [id number] October, [facility] [address] [id number] [address] [place] [address], [place] [id number] October, [facility] [address] [id number] [address] [place] [address], [place] [address] October, [facility] [address] [id number] [address] [place] [address], [place] [id number] October, [facility] [address] [id number] [address] [place] [address], [place] [address] October, [facility] [address] [id number] [address] [place] [address], [place] [address] Sep, [facility] [address] [id number] [address] [place] [address], [place] [id number] Sep, [facility] [address] [id number] [address] [place] [address], [place] [id number] Sep, [facility] [address] [id number] [address] [place] [address], [place] [address] Sep, [facility] [address] [id number] [address] [place] [address], [place] [address] Sep, [facility] [address] [id number] [address] [place] [address], [place] [address] Aug, [facility] [address] [id number] [address] [place] [address], [place] [address] Aug, [facility] [address] [id number] [address] [place] [address], [place] [id number] Aug, [facility] [address] [id number] [address] [place] [address], [place] [id number] Jul, [facility] [address] [id number] [address] [place] [address], [place] [address] Jul, [facility] [address] [id number] [address] [place] [address], [place] [address] Jul, [facility] [address] [id number] [address] [place] [address], [place] [id number] 08 Jul, 2012 [facility] [address] [id number] [address] [place] [address], [place] [id number] 06 Jul, 2012 [facility] [address] [id number] [address] [place] [id number] Jul, [facility] [address] [id number] [address] [place] [address], [place] [address] Jun, [facility] [address] [id number] [address] [place] [id number] Apr, [facility] [address] [id number] [address] [place] [address], [place] [id number] Apr, [facility] [address] [id number] [address] [place] [address], [place] [address] Apr, [facility] [address] [id number] [address] [place] [address], [place] [address] Apr, [facility] [address] [id number] [address] [place] [address], [place] [address] Mar, [facility] [address] [id number] [address] [place] [address], [place] [id number] Mar, [facility] [address] [id number] [address] [place] [address], [place] [address] Mar, [facility] [address] [id number] [address] [place] [address], [place] [address] Mar, [facility] [address] [id number] [address] [place] [address], [place] [address] Mar, [facility] [address] [id number] [address] [place] [address], [place] [address] Feb, [facility] [address] [id number] [address] [place] [id number] Jan, [facility] [address] [id number] [address] [place] [id number] Jan, [facility] [address] [id number] [address] [place] [id number] Jan, [facility] [address] [id number] [address] [place] [address], [place] [address] Dec, [facility] [address] [id number] [address] [place] [id number] Nov, [facility] [address] [id number] [address] [place] [id number] Nov, [facility] [address] [id number] [address] [place] [id number] Nov, [facility] [address] [id number] [address] [place] [id number] Nov, [facility] [address] [id number] [address] [place] [id number] Nov, [facility] [address] [id number] [address] [place] [id number] October, [facility] [address] [id number] [address] [place] [id number] October, [facility] [address] [id number] [address] [place] [id number] October, [facility] [address] [id number] [address] [place] [id number] October, [facility] [address] [id number] [address] [place] [id number] October, IMMUNIZATIONS No Known Immunizations SOCIAL HISTORY Never Assessed REASON FOR VISIT PLAN OF CARE VITAL SIGNS Height 66 in 2014-03-17 Weight 263.3 lbs 2014-03-17 Temperature 96.5 degrees Fahrenheit 2014-03-17 Heart Rate 80 bpm 2014-03-17 Respiratory Rate 18 2014-03-17 Blood pressure systolic 124 mmHg 2014-03-17 Blood pressure diastolic 80 mmHg 2014-03-17 MEDICATIONS Unknown Medications RESULTS No Results PROCEDURES [...]
--- OUTSIDE RECORDS SUMMARY | 2020-01-25 08:23 | XMS REPORT ---
Author Author Velma CORDERO Organization [facility] Address [address] [place] [address] Care Team Providers Care Greeting Card Writer Name Role Phone STEPHAN CORDERO Unavailable PROBLEMS Type Condition ICD9-CM Code [id number] Code Onset Dates Condition S tatus SNOMED Code Problem Hypercholesteremia E78.0 Active 1 1181541 Problem Arthritis M19.90 Active 8309485 Problem Hyperparathyroidism E21.3 Active 49612185 Problem Primary insomnia F51.01 Active 397 2004 Problem Myalgia M79.1 Active 32549992 Problem Chronic kidney disease, stage 4 (severe) N18.4 Active 187429788 Problem BPV (benign positional vertigo), bilateral H81.13 Active 881982123 Problem Corns L84 Active 483292131 Problem Mood disorder F39 Active 202327 05 Problem 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 Active 92780193 Problem 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 Active 03368593 ALLERGIES No Information ENCOUNTERS Encounter Location Date Diagnosis [facility] [address] [place] [id number] [address] [place] [address] Nov, Labyrinthitis of left ear H8 3.02 [facility] [place] [address] [place] [id number] [address] [place] [address] Nov, BMI 40.0-44.9, adult Z68.41 ; Chronic kidney disease, stage 4 (severe) N18.4 and Acute right-sided thoracic back pain M54.6 [place] [address] [place] [id number] [address] [place] [address] October, Labyrinthitis of left ear H8 3.02 and Arthritis M19.90 [facility] [place] [address] [place] [id number] [address] [place] [address] Sep, BPV (benign positional verti go), bilateral H81.13 ; Dysfunction of left eustachian tube H69.82 and BMI 40.0-44.9, adult Z68.41 [facility] [address] [place] [id number] [address] [place] [address] Sep, Labyrinthitis of left ear H8 3.02 and Arthritis M19.90 [facility] [address] [facility] [id number] [address] [place] [address] Sep, [facility] [address] [facility] [id number] [address] [place] [address] Sep, [facility] [address] [facility] [id number] [address] [place] [address] Sep, Chronic kidney disease, stag e 4 (severe) N18.4 [facility] [address] [place] [id number] [address] [place] [address] Sep, Chronic kidney disease, stag e 4 (severe) N18.4 [facility] [address] [id number] [address] [place] [address] Aug, Labyrinthitis of left ear H8 3.02 and Arthritis M19.90 [facility] [address] [facility] [id number] [address] [place] [address] Aug, [facility] [address] [facility] [id number] [address] [place] [address] Jul, [facility] [address] [facility] [id number] [address] [place] [address] Jul, Arthritis M19.90 and Labyrin thitis of left ear H83.02 [facility] [address] [facility] [id number] [address] [place] [address] Jul, [facility] [address] [facility] [id number] [address] [place] [address] Jun, [facility] [address] [facility] [id number] [address] [place] [address] Jun, Arthritis M19.90 and Labyrin thitis of left ear H83.02 [place] [address] [address] Jun, Pre-op evaluation Z01.818 ; BMI 40.0-44.9, adult Z68.41 and Encounter for immunization Z23 [facility] [address] [place] [address] May, Arthritis M19.90 and Labyrin thitis of left ear H83.02 [facility] [place] [address] [address] Apr, Labyrinthitis of left ear H8 3.02 [facility] [place] [address] [place] [id number] [place] [address] Apr, Arthritis M19.90 and Labyrin thitis of left ear H83.02 [facility] [place] [address] [address] Mar, Arthritis M19.90 and Labyrin thitis of left ear H83.02 [facility] [address] [address] Mar, Chronic kidney disease, stag e 4 (severe) N18.4 [facility] [place] [address] [place] [id number] [place] [address] Feb, Arthritis M19.90 and Labyrin thitis of left ear H83.02 [facility] [address] [place] [id number] [address] [place] [address] Jan, Labyrinthitis of left ear H8 3.02 and 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 [facility] [address] [place] [id number] [address] [place] [address] Dec, Arthritis M19.90 [facility] [place] [address] [place] [id number] [address] [place] [address] Dec, BPV (benign positional verti go), bilateral H81.13 [facility] [address] [facility] [id number] [address] [place] [address] Dec, [facility] [address] [facility] [id number] [address] [place] [address] Dec, [facility] [address] [facility] [id number] [address] [place] [address] Dec, [facility] [address] [facility] [id number] [address] [place] [address] Nov, Arthritis M19.90 and Deficie ncy of other specified B group vitamins E53.8 [facility] [address] [facility] [id number] [address] [place] [address] Nov, Arthritis M19.90 [facility] [address] [facility] [id number] [address] [place] [address] Nov, Hyperparathyroidism E21.3 [facility] [address] [facility] [id number] [address] [place] [address] October, [facility] [address] [facility] [id number] [address] [place] [address] October, Hyperparathyroidism E21.3 [facility] [address] [facility] [id number] [address] [place] [address] October, [facility] [address] [facility] [id number] [address] [place] [address] October, Renal insufficiency N28.9 an d Hyperparathyroidism E21.3 [facility] [address] [facility] [id number] [address] [place] [address] October, [facility] [address] [facility] [id number] [address] [place] [address] October, Renal insufficiency N28.9 an d Hyperparathyroidism E21.3 [facility] [address] [facility] [id number] [address] [place] [address] October, Arthritis M19.90 [facility] [address] [place] [id number] [address] [place] [address] Sep, [facility] [address] [address] Sep, Lumbar neuritis M54.16 ; Tho racic abscess J86.9 and 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 [facility] [address] [address] Sep, [facility] [address] [address] Aug, Arthritis M19.90 [facility] [address] [address] Aug, Hyperparathyroidism E21.3 [facility] [address] [address] Aug, Hyperparathyroidism E21.3 [facility] [address] [address] Aug, Arthritis M19.90 [facility] [address] [address] Jul, Mass of throat R22.1 [facility] [address] [address] Jul, [facility] [address] [address] Jul, Arthritis M19.90 [facility] [address] [place] [id number] [place] [address] Jun, Arthritis M19.90 [facility] [address] [address] Jun, [facility] [address] [place] [id number] [place] [address] Jun, Renal insufficiency N28.9 an d Parathyroid 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 [facility] [address] [place] [id number] [place] [address] 05 Jun, 2016 Medicare welcome exam Z00.00 ; Encounter for immunization Z23 ; Arthritis M19.90 ; Medicare annual wellness visit, initial Z00.00 ; Medicare annual wellness visit, subsequent Z00.00 and 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 [facility] [address] [facility] [id number] [address] [place] [address] 29 May, 2016 Renal insufficiency N28.9 an d Parathyroid 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 [facility] [address] [facility] [id number] [address] [place] [address] 19 May, 2016 Renal insufficiency N28.9 [facility] [address] [address] 16 May, 2016 Renal insufficiency N28.9 [facility] [address] [place] [id number] [place] [address] May, [facility] [address] [place] [id number] [address] [place] [address] Apr, [facility] [address] [place] [id number] [address] [place] [address] Apr, [facility] [address] [place] [id number] [address] [place] [address] 14 Apr, 2016 Mass of throat R22.1 [facility] [address] [place] [id number] [address] [place] [address] 10 Apr, 2016 [facility] [address] [place] [id number] [address] [place] [address] 10 Apr, 2016 Mass of throat R22.1 [facility] [address] [place] [id number] [place] [address] 04 Apr, 2016 Mass of throat R22.1 [facility] [address] [facility] [id number] [address] [place] [address] 31 Mar, 2016 [facility] [address] [place] [id number] [place] [address] Mar, [facility] [address] [id number] [address] [place] [address] Mar, [facility] [address] [facility] [id number] [address] [place] [address] Mar, Parathyroid abnormality E21. 5 and Encounter for immunization Z23 [facility] [address] [id number] [address] [place] [address] Mar, [facility] [address] [id number] [address] [place] [address] Mar, [facility] [address] [id number] [address] [place] [address] Feb, Renal insufficiency N28.9 an d Hyperparathyroidism E21.3 [facility] [address] [facility] [id number] [address] [place] [address] 19 Feb, 2016 [facility] [address] [facility] [id number] [address] [place] [address] 15 Feb, 2016 Renal insufficiency N28.9 an d Hyperparathyroidism E21.3 [facility] [address] [facility] [id number] [address] [place] [address] 14 Feb, 2016 [facility] [address] [facility] [id number] [address] [place] [address] Feb, [facility] [address] [facility] [id number] [address] [place] [address] Feb, [facility] [address] [id number] [address] [place] [address] Jan, [facility] [address] [facility] [id number] [address] [place] [address] Jan, Arthritis M19.90 ; Lumbago w ith sciatica, right side M54.41 and Other chronic pain G89.29 [facility] [address] [facility] [id number] [address] [place] [address] Jan, [facility] [address] [place] [id number] [address] [place] [address] Dec, Arthritis M19.90 ; Lumbago w ith sciatica, right side M54.41 and Other chronic pain G89.29 [place] [address] [place] [id number] [address] [place] [address] 16 Nov, 2015 Deficiency of other specifie d B group vitamins E53.8 ; Primary insomnia F51.01 ; Mood disorder F39 and Lumbago with sciatica, right side M54.41 [place] [address] [place] [id number] [address] [place] [address] 13 Nov, 2015 Hyperparathyroidism E21.3 [place] [address] [place] [id number] [place] [address] Nov, Unspecified kidney failure N 19 and Hyperparathyroidism E21.3 [facility] [address] [place] [id number] [address] [place] [address] October, Hyperparathyroidism E21.3 [place] [address] [place] [id number] [address] [place] [address] October, [place] [address] [address] October, Hyperparathyroidism E21.3 [place] [address] [place] [id number] [address] [place] [address] October, Hyperparathyroidism E21.3 [place] [address] [place] [id number] [address] [place] [address] Sep, Hyperparathyroidism E21.3 ; Hypercholesterolemia E78.0 and Arthritis M19.90 [place] [address] [place] [id number] [address] [place] [address] Aug, [place] [address] [place] [id number] [address] [place] [address] Aug, Deficiency of other specifie d B group vitamins E53.8 [place] [address] [place] [id number] [address] [place] [address] Aug, [facility] [address] [facility] [id number] [address] [place] [address] Jul, Urinary frequency R35.0 [facility] [address] [facility] [id number] [address] [place] [address] Jul, Urinary frequency R35.0 [facility] [address] [facility] [id number] [address] [place] [address] Jul, [facility] [address] [facility] [id number] [address] [place] [address] Jul, [facility] [address] [facility] [id number] [address] [place] [address] Jun, Pain in left knee M25.562 [facility] [address] [facility] [id number] [address] [place] [address] Jun, [facility] [address] [facility] [id number] [address] [place] [address] May, Swelling of left knee joint M25.462 [facility] [address] [facility] [id number] [address] [place] [address] May, [facility] [address] [facility] [id number] [address] [place] [address] May, [facility] [address] [facility] [id number] [address] [place] [address] May, [facility] [address] [facility] [id number] [address] [place] [address] Apr, Renal insufficiency N28.9 an d Chronic kidney disease, stage 4 (severe) N18.4 [facility] [address] [facility] [id number] [address] [place] [address] Apr, Unspecified kidney failure N 19 [facility] [address] [facility] [id number] [address] [place] [address] Apr, Unspecified kidney failure N 19 [facility] [address] [id number] [address] [place] [address] Apr, [facility] [address] [facility] [id number] [address] [place] [address] Apr, Hyperparathyroidism, unspeci fied 252.00 [facility] [address] [facility] [id number] [address] [place] [address] Apr, [facility] [address] [facility] [id number] [address] [place] [address] Mar, [facility] [address] [id number] [address] [place] [address] Mar, [facility] [address] [facility] [id number] [address] [place] [address] Mar, Hyperparathyroidism, unspeci fied 252.00 [facility] [address] [facility] [id number] [address] [place] [address] Feb, [facility] [address] [facility] [id number] [address] [place] [address] Feb, Otalgia 388.70 [facility] [address] [facility] [id number] [place] [address] Feb, [facility] [address] [facility] [id number] [place] [address] Feb, [facility] [address] [facility] [id number] [address] [place] [address] Jan, [facility] [address] [facility] [id number] [address] [place] [address] Jan, Hyperparathyroidism, unspeci fied 252.00 [facility] [address] [facility] [id number] [address] [place] [address] Jan, [facility] [address] [facility] [id number] [address] [place] [address] Jan, Other B-complex deficiencies 266.2 and Hyperparathyroidism, unspecified 252.00 [facility] [address] [id number] [address] [place] [address] Jan, [facility] [address] [id number] [address] [place] [address] Jan, [facility] [address] [id number] [address] [place] [address] Jan, [facility] [address] [id number] [address] [place] [address] Dec, [facility] [address] [id number] [address] [place] [address] Dec, [facility] [address] [id number] [address] [place] [address] Dec, [facility] [address] [id number] [address] [place] [address] Nov, Routine check-up V70.0 and P re-op exam V72.84 [facility] [address] [id number] [address] [place] [address] Nov, [facility] [address] [id number] [address] [place] [address] Nov, [facility] [address] [id number] [address] [place] [address] October, [facility] [address] [id number] [address] [place] [address] October, Other B-complex deficiencies 266.2 [facility] [address] [id number] [address] [place] [address] October, [facility] [address] [id number] [address] [place] [address] Sep, [facility] [address] [id number] [address] [place] [address] Sep, [facility] [address] [id number] [address] [place] [address] Aug, [facility] [address] [id number] [address] [place] [address], [place] [address] 20 Aug, 2014 [facility] [address] [id number] [address] [place] [address], [place] [address] 17 Aug, 2014 [facility] [address] [id number] [address] [place] [address], [place] [address] 17 Aug, 2014 [facility] [address] [id number] [address] [place] [address], [place] [address] Aug, 2014 [facility] [address] [id number] [address] [place] [address], [place] [address] Aug, [facility] [address] [id number] [address] [place] [address], [place] [address] 18 Jul, 2014 [facility] [address] [id number] [address] [place] [address], [place] [address] 18 Jul, 2014 [facility] [address] [id number] [address] [place] [address], [place] [address] 17 Jul, 2014 [facility] [address] [id number] [address] [place] [address], [place] [address] 17 Jul, 2014 [facility] [address] [id number] [address] [place] [address], [place] [address] Jul, 2014 [facility] [address] [id number] [address] [place] [address], [place] [address] Jul, 2014 [facility] [address] [id number] [address] [place] [address], [place] [address] Jul, 2014 [facility] [address] [id number] [address] [place] [address], [place] [address] 10 Jul, 2014 [facility] [address] [id number] [address] [place] [address], [place] [address] 09 Jul, 2014 [facility] [address] [id number] [address] [place] [id number] 09 Jul, 2014 [facility] [address] [id number] [address] [place] [id number] Jul, [facility] [address] [id number] [address] [place] [address], [place] [address] Jul, [facility] [address] [id number] [address] [place] [address], [place] [address] Jul, [facility] [address] [id number] [address] [place] [address], [place] [address] Jul, [facility] [address] [id number] [address] [place] [address], [place] [address] Jun, [facility] [address] [id number] [address] [place] [address], [place] [address] Jun, [facility] [address] [id number] [address] [place] [address], [place] [address] Jun, [facility] [address] [id number] [address] [place] [address], [place] [address] Jun, [facility] [address] [id number] [address] [place] [address], [place] [address] Jun, [facility] [address] [id number] [address] [place] [address], [place] [address] Jun, [facility] [address] [id number] [address] [place] [address], [place] [address] Jun, [facility] [address] [id number] [address] [place] [address], [place] [address] Jun, [facility] [address] [id number] [address] [place] [id number] Jun, [facility] [address] [id number] [address] [place] [address] Jun, [facility] [address] [id number] [address] [place] [address] Jun, [facility] [address] [id number] [address] [place] [id number] Jun, [facility] [address] [id number] [address] [place] [address], [place] [address] Jun, [facility] [address] [id number] [address] [place] [address], [place] [address] Jun, [facility] [address] [id number] [address] [place] [address], [place] [address] May, [facility] [address] [id number] [address] [place] [address], [place] [address] May, [facility] [address] [id number] [address] [place] [address], [place] [address] May, [facility] [address] [id number] [address] [place] [address], [place] [address] May, [facility] [address] [id number] [address] [place] [address], [place] [address] Apr, [facility] [address] [id number] [address] [place] [address], [place] [address] Apr, [facility] [address] [id number] [address] [place] [address], [place] [address] Apr, [facility] [address] [id number] [address] [place] [address], [place] [address] Apr, [facility] [address] [id number] [address] [place] [address], [place] [address] Apr, [facility] [address] [id number] [address] [place] [address], [place] [address] Apr, [facility] [address] [id number] [address] [place] [address], [place] [address] Mar, [facility] [address] [id number] [address] [place] [address], [place] [address] Mar, [facility] [address] [id number] [address] [place] [address], [place] [address] Mar, [facility] [address] [id number] [address] [place] [address], [place] [address] Mar, [facility] [address] [id number] [address] [place] [address], [place] [address] 15 Mar, 2014 [facility] [address] [id number] [address] [place] [address], [place] [address] 15 Mar, 2014 [facility] [address] [id number] [address] [place] [address], [place] [address] 13 Mar, 2014 [facility] [address] [id number] [address] [place] [address], [place] [address] 13 Mar, 2014 [facility] [address] [id number] [address] [place] [address], [place] [address] 07 Mar, 2014 [facility] [address] [id number] [address] [place] [address], [place] [address] Mar, [facility] [address] [id number] [address] [place] [address], [place] [address] Mar, [facility] [address] [id number] [address] [place] [address] 07 Mar, 2014 [facility] [address] [id number] [address] [place] [address], [place] [address] 06 Mar, 2014 [facility] [address] [id number] [address] [place] [address] 26 Feb, 2013 [facility] [address] [id number] [address] [place] [address] 26 Sep, 2013 [facility] [address] [id number] [address] [place] [address] 23 Feb, 2013 [facility] [address] [id number] [address] [place] [address], [place] [address] 23 Feb, 2013 [facility] [address] [id number] [address] [place] [address] 19 Feb, 2013 [facility] [address] [id number] [address] [place] [address] 19 Feb, 2013 [facility] [address] [id number] [facility] [place]note 2[facility] [address] 13 Feb, 2014 [facility] [address] [id number] [address] [place] [address], [place] [address] 13 Feb, 2014 [facility] [address] [id number] [address] [place] [address], [place] [address] 12 Feb, 2014 [facility] [address] [id number] [address] [place] [address], [place] [address] Feb, [facility] [address] [id number] [address] [place] [address], [place] [address] Jan, [facility] [address] [id number] [address] [place] [address], [place] [address] Jan, [facility] [address] [id number] [address] [place] [address], [place] [address] Dec, [facility] [address] [id number] [address] [place] [address], [place] [address] Dec, [facility] [address] [id number] [address] [place] [address], [place] [address] Dec, [facility] [address] [id number] [address] [place] [address], [place] [address] Dec, [facility] [address] [id number] [address] [place] [address], [place] [address] Dec, [facility] [address] [id number] [address] [place] [address], [place] [address] Dec, [facility] [address] [id number] [address] [place] [address], [place] [address] Nov, [facility] [address] [id number] [address] [place] [address], [place] [address] Nov, [facility] [address] [id number] [address] [place] [address], [place] [address] Nov, [facility] [address] [id number] [address] [place] [address], [place] [address] Nov, [facility] [address] [id number] [address] [place] [address], [place] [address] October, [facility] [address] [id number] [address] [place] [address], [place] [address] October, [facility] [address] [id number] [address] [place] [address], [place] [address] October, [facility] [address] [id number] [address] [place] [address], [place] [address] October, [facility] [address] [id number] [address] [place] [address], [place] [address] October, [facility] [address] [id number] [address] [place] [address], [place] [address] October, [facility] [address] [id number] [address] [place] [address], [place] [address] October, [facility] [address] [id number] [address] [place] [address], [place] [address] October, [facility] [address] [id number] [address] [place] [address], [place] [address] October, [facility] [address] [id number] [address] [place] [address], [place] [address] October, [facility] [address] [id number] [address] [place] [address], [place] [address] October, [facility] [address] [id number] [address] [place] [address], [place] [address] October, [facility] [address] [id number] [address] [place] [address], [place] [address] October, [facility] [address] [id number] [address] [place] [address], [place] [address] October, [facility] [address] [id number] [address] [place] [address], [place] [address] October, [facility] [address] [id number] [address] [place] [address], [place] [address] October, [facility] [address] [id number] [facility] [place] [address] Sep, [facility] [address] [id number] [address] [place] [address], [place] [address] Sep, [facility] [address] [id number] [address] [place] [address], [place] [address] Sep, [facility] [address] [id number] [address] [place] [address], [place] [address] Sep, [facility] [address] [id number] [address] [place] [address], [place] [address] Sep, [facility] [address] [id number] [address] [place] [address], [place] [address] Sep, [facility] [address] [id number] [address] [place] [address], [place] [address] Aug, [facility] [address] [id number] [address] [place] [address], [place] [address] Aug, [facility] [address] [id number] [address] [place] [address], [place] [address] Aug, [facility] [address] [id number] [address] [place] [address], [place] [address] Aug, [facility] [address] [id number] [address] [place] [address], [place] [address] Aug, [facility] [address] [id number] [address] [place] [address], [place] [address] Aug, [facility] [address] [id number] [address] [place] [address], [place] [address] Jul, [facility] [address] [id number] [address] [place] [address], [place] [address] Jul, [facility] [address] [id number] [address] [place] [address], [place] [address] Jul, [facility] [address] [id number] [address] [place] [address], [place] [address] 03 Jul, 2013 [facility] [address] [id number] [address] [place] [address], [place] [address] Jun, [facility] [address] [id number] [address] [place] [address], [place] [address] Jun, [facility] [address] [id number] [address] [place] [address], [place] [address] May, [facility] [address] [id number] [address] [place] [address], [place] [address] May, [facility] [address] [id number] [address] [place] [address], [place] [address] May, [facility] [address] [id number] [address] [place] [address], [place] [address] May, [facility] [address] [id number] [address] [place] [address], [place] [address] May, [facility] [address] [id number] [address] [place] [address], [place] [address] Apr, [facility] [address] [id number] [address] [place] [address], [place] [address] Apr, [facility] [address] [id number] [address] [place] [address], [place] [address] Apr, [facility] [address] [id number] [address] [place] [address], [place] [address] Apr, [facility] [address] [id number] [address] [place] [address], [place] [address] Apr, [facility] [address] [id number] [address] [place] [address], [place] [address] 04 Apr, 2013 [facility] [address] [id number] [address] [place] [address], [place] [address] 15 Mar, 2013 [facility] [address] [id number] [address] [place] [address], [place] [address] 15 Mar, 2013 [facility] [address] [id number] [address] [place] [address], [place] [address] 14 Mar, 2013 [facility] [address] [id number] [address] [place] [address], [place] [address] 14 Mar, 2013 [facility] [address] [id number] [address] [place] [address], [place] [address] 11 Mar, 2013 [facility] [address] [id number] [address] [place] [address], [place] [address] 11 Mar, 2013 [facility] [address] [id number] [address] [place] [address], [place] [address] 23 Feb, 2013 [facility] [address] [id number] [address] [place] [address], [place] [address] Feb, [facility] [address] [id number] [address] [place] [address], [place] [address] Feb, [facility] [address] [id number] [address] [place] [address], [place] [address] Jan, [facility] [address] [id number] [address] [place] [address], [place] [address] Jan, [facility] [address] [id number] [address] [place] [address], [place] [address] Jan, [facility] [address] [id number] [address] [place] [address], [place] [address] Jan, [facility] [address] [id number] [address] [place] [address], [place] [address] Jan, [facility] [address] [id number] [address] [place] [address], [place] [address] Jan, [facility] [address] [id number] [address] [place] [address], [place] [address] Dec, [facility] [address] [id number] [address] [place] [address], [place] [address] Dec, [facility] [address] [id number] [address] [place] [address], [place] [address] Dec, [facility] [address] [id number] [address] [place] [address], [place] [address] Dec, [facility] [address] [id number] [address] [place] [address], [place] [address] Dec, [facility] [address] [id number] [address] [place] [address], [place] [address] Dec, [facility] [address] [id number] [address] [place] [address], [place] [address] Nov, [facility] [address] [id number] [address] [place] [address], [place] [address] Nov, [facility] [address] [id number] [address] [place] [address], [place] [address] Nov, [facility] [address] [id number] [address] [place] [address], [place] [address] Nov, [facility] [address] [id number] [address] [place] [address], [place] [address] Nov, [facility] [address] [id number] [address] [place] [address], [place] [address] Nov, [facility] [address] [id number] [address] [place] [address], [place] [address] October, [facility] [address] [id number] [address] [place] [address], [place] [address] October, [facility] [address] [id number] [address] [place] [address], [place] [address] October, [facility] [address] [id number] [address] [place] [address], [place] [address] October, [facility] [address] [id number] [address] [place] [address], [place] [address] October, [facility] [address] [id number] [address] [place] [address], [place] [address] Sep, [facility] [address] [id number] [address] [place] [address], [place] [address] 23 Sep, 2012 [facility] [address] [id number] [address] [place] [address], [place] [address] Sep, [facility] [address] [id number] [address] [place] [address], [place] [address] 18 Sep, 2012 [facility] [address] [id number] [address] [place] [address], [place] [address] Sep, [facility] [address] [id number] [address] [place] [address], [place] [address] 26 Aug, 2012 [facility] [address] [id number] [address] [place] [address], [place] [address] 07 Aug, 2012 [facility] [address] [id number] [address] [place] [address], [place] [address] Aug, [facility] [address] [id number] [address] [place] [address], [place] [address] Jul, [facility] [address] [id number] [address] [place] [address], [place] [address] Jul, [facility] [address] [id number] [address] [place] [address], [place] [address] Jul, [facility] [address] [id number] [address] [place] [address], [place] [address] 08 Jul, 2012 [facility] [address] [id number] [address] [place] [address], [place] [address] 06 Jul, 2012 [facility] [address] [id number] [address] [place] [address], [place] [address] 05 Jul, 2012 [facility] [address] [id number] [address] [place] [address], [place] [address] 15 Jun, 2012 [facility] [address] [id number] [address] [place] [address], [place] [address] 16 Apr, 2012 [facility] [address] [id number] [address] [place] [address], [place] [address] 16 Apr, 2012 [facility] [address] [id number] [address] [place] [address], [place] [address] Apr, [facility] [address] [id number] [address] [place] [address], [place] [address] Apr, [facility] [address] [id number] [address] [place] [address], [place] [address] Mar, [facility] [address] [id number] [address] [place] [address], [place] [address] Mar, [facility] [address] [id number] [address] [place] [address], [place] [address] Mar, [facility] [address] [id number] [address] [place] [address], [place] [address] Mar, [facility] [address] [id number] [address] [place] [address], [place] [address] Mar, [facility] [address] [id number] [address] [place] [address], [place] [address] Feb, [facility] [address] [id number] [address] [place] [address], [place] [address] Jan, [facility] [address] [id number] [address] [place] [address], [place] [address] Jan, [facility] [address] [id number] [address] [place] [address], [place] [address] Jan, [facility] [address] [id number] [address] [place] [address], [place] [address] Dec, [facility] [address] [id number] [address] [place] [address], [place] [address] Nov, [facility] [address] [id number] [address] [place] [address], [place] [address] Nov, [facility] [address] [id number] [address] [place] [address] Nov, [facility] [address] [id number] [address] [place] [address] 07 Nov, 2011 [facility] [address] [id number] [address] [place] [phone] Nov, [facility] [address] [id number] [address] [place] [phone] October, [facility] [address] [facility] [id number] [address] [place] [phone] October, [facility] [address] [facility] [id number] [address] [place] [phone] October, [facility] [address] [facility] [id number] [address] [place] [phone] October, [facility] [address] [facility] [id number] [address] [place] [phone] October, IMMUNIZATIONS No Known Immunizations SOCIAL HISTORY Never Assessed REASON FOR VISIT referral PLAN OF CARE VITAL SIGNS MEDICATIONS [...]
--- OUTSIDE RECORDS SUMMARY | 2020-01-25 08:23 | XMS REPORT ---
Author Author Velma CORDERO Organization [facility] Address [address] [place] [address] Care Team Providers Care Pediatric Physical Therapy Assistant Name Role Phone STEPHAN CORDERO Unavailable PROBLEMS Type Condition ICD9-CM Code ABB33-TZ Code Onset Dates Condition S tatus SNOMED Code Problem Hypercholesteremia E78.0 Active 1 2509458 Problem Arthritis M19.90 Active 6606552 Problem Hyperparathyroidism E21.3 Active 58628224 Problem Primary insomnia F51.01 Active 397 2004 Problem Myalgia M79.1 Active 40757994 Problem Chronic kidney disease, stage 4 (severe) N18.4 Active 960565712 Problem BPV (benign positional vertigo), bilateral H81.13 Active 225745223 Problem Corns L84 Active 589190338 Problem Mood disorder F39 Active 587634 05 Problem 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 Active 27085094 Problem 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 Active 92127531 ALLERGIES No Information ENCOUNTERS Encounter Location Date Diagnosis [place] [address] [place] [id number] [place] [phone] Nov, [place] [address] [place] [id number] [place] [phone] October, Labyrinthitis of left ear H8 3.02 and Arthritis M19.90 [facility] [address] [facility]] [id number] [address] [place] [phone] Sep, BPV (benign positional verti go), bilateral H81.13 ; Dysfunction of left eustachian tube H69.82 and BMI 40.0-44.9, adult Z68.41 [facility] [address] [facility]NOTE [facility]] [id number] [address] [place] [phone] Sep, Labyrinthitis of left ear H8 3.02 and Arthritis M19.90 [facility] [address] [facility]NOTE [facility]] [id number] [address] [place] [phone] Sep, [facility] [address] [facility]] [id number] [address] [place] [phone] Sep, [facility] [address] [facility]NOTE [facility]] [id number] [address] [place] [phone] Sep, Chronic kidney disease, stag e 4 (severe) N18.4 [facility] [address] [facility]] [id number] [address] [place] [phone] Sep, Chronic kidney disease, stag e 4 (severe) N18.4 [facility] [address] [facility]] [id number] [address] [place] [phone] Aug, Labyrinthitis of left ear H8 3.02 and Arthritis M19.90 [facility] [address] [place] [id number] [place] [phone] Aug, [facility] [address] [place] [id number] [address] [place] [phone] Jul, [facility] [address] [place] [id number] [place] [phone] Jul, Arthritis M19.90 and Labyrin thitis of left ear H83.02 [facility] [address] [place] [id number] [address] [place] [phone] Jul, [facility] [address] [place] [id number] [address] [place] [phone] Jun, [facility] [address] [facility]] [id number] [address] [place] [phone] Jun, Arthritis M19.90 and Labyrin thitis of left ear H83.02 [facility] [address] [place] [id number] [place] [phone] 09 Jun, 2017 Pre-op evaluation Z01.818 ; BMI 40.0-44.9, adult Z68.41 and Encounter for immunization Z23 [place] [id number] [place] [phone] May, Arthritis M19.90 and Labyrin thitis of left ear H83.02 [place] [address] [place] [id number] [address] [place] [phone] Apr, Labyrinthitis of left ear H8 3.02 [place] [address] [address] Apr, Arthritis M19.90 and Labyrin thitis of left ear H83.02 [place] [address] [id number] Mar, Arthritis M19.90 and Labyrin thitis of left ear H83.02 [place] [address] [phone] Mar, Chronic kidney disease, stag e 4 (severe) N18.4 [place] [address] [phone] Feb, Arthritis M19.90 and Labyrin thitis of left ear H83.02 [place] [address] [address] Jan, Labyrinthitis of left ear H8 3.02 and 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 [place] [address] [place] [id number] [place] [phone] Dec, Arthritis M19.90 [place] [address] [place] [id number] [place] [phone] Dec, BPV (benign positional verti go), bilateral H81.13 [place] [address] [place] [id number] [place] [phone] Dec, [place] [address] [place] [id number] [place] [phone] Dec, [place] [address] [place] [id number] [address] [place] [phone] Dec, [facility] [address] [facility]] [id number] [address] [place] [id number] Nov, Arthritis M19.90 and Deficie ncy of other specified B group vitamins E53.8 [facility] [address] [facility] 3] [id number] [address] [place] [phone] Nov, Arthritis M19.90 [facility] [address] [facility] 3] [id number] [address] [place] [phone] Nov, Hyperparathyroidism E21.3 [facility] [address] [facility] 3] [id number] [address] [place] [phone] October, [facility] [address] [facility] 3] [id number] [address] [place] [phone] October, Hyperparathyroidism E21.3 [facility] [address] [facility] 3] [id number] [address] [place] [phone] October, [facility] [address] [facility] 3] [id number] [address] [place] [phone] October, Renal insufficiency N28.9 an d Hyperparathyroidism E21.3 [facility] [address] [facility] 3] [id number] [address] [place] [phone] October, [facility] [address] [facility] 3] [id number] [address] [place] [phone] October, Renal insufficiency N28.9 an d Hyperparathyroidism E21.3 [facility] [address] [facility] 3] [id number] [address] [place] [phone] October, Arthritis M19.90 [facility] [address] [facility] 3] [id number] [address] [place] [phone] Sep, [facility] [address] [facility]] [id number] [address] [place] [phone] Sep, Lumbar neuritis M54.16 ; Tho racic abscess J86.9 and 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 [facility] [address] [facility] 3] [id number] [address] [place] [phone] Sep, [facility] [address] [facility] 3] [id number] [address] [place] [phone] Aug, Arthritis M19.90 [facility] [address] [facility] 3] [id number] [address] [place] [phone] Aug, Hyperparathyroidism E21.3 [facility] [address] [facility] 3] [id number] [address] [place] [phone] Aug, Hyperparathyroidism E21.3 [facility] [address] [place] [id number] [place] [phone] Aug, Arthritis M19.90 [facility] [address] [phone] Jul, Mass of throat R22.1 [facility] [address] [phone] 16 Jul, 2016 [facility] [address] [place] [id number] [address] [place] [phone] Jul, Arthritis M19.90 [facility] [address] [place] [id number] [address] [place] [phone] Jun, Arthritis M19.90 [facility] [address] [place] [id number] [address] [place] [phone] Jun, [facility] [address] [place] [id number] [address] [place] [phone] Jun, Renal insufficiency N28.9 an d 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 [facility] [address] [place] [id number] [address] [place] [phone] 05 Jun, 2016 Encounter for immunization Z 23 ; Medicare welcome exam Z00.00 ; Arthritis M19.90 ; Medicare annual wellness visit, initial Z00.00 ; Medicare annual wellness visit, subsequent Z00.00 and 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 [facility] [address] [facility] 3] [id number] [address] [place] [phone] 29 May, 2016 Renal insufficiency N28.9 an d 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 [facility] [address] [facility] 3] [id number] [address] [place] [phone] 19 May, 2016 Renal insufficiency N28.9 [facility] [address] [facility] 3] [id number] [address] [place] [phone] 16 May, 2016 Renal insufficiency N28.9 [facility] [address] [facility] 3] [id number] [address] [place] [phone] 14 May, 2016 [facility] [address] [facility] 3] [id number] [address] [place] [phone] 16 Apr, 2016 [facility] [address] [facility] 3] [id number] [address] [place] [phone] 16 Apr, 2016 [facility] [address] [facility] 3] [id number] [address] [place] [phone] 14 Apr, 2016 Mass of throat R22.1 [facility] [address] [facility] 3] [id number] [address] [place] [phone] Apr, [facility] [address] [facility] 3] [id number] [address] [place] [phone] Apr, Mass of throat R22.1 [facility] [address] [facility] 3] [id number] [address] [place] [phone] 04 Apr, 2016 Mass of throat R22.1 [facility] [address] [facility] 3] [id number] [address] [place] [phone] Mar, [facility] [address] [facility] 3] [id number] [address] [place] [phone] Mar, [facility] [address] [facility] 3] [id number] [address] [place] [phone] Mar, [facility] [address] [facility] 3] [id number] [address] [place] [phone] Mar, Parathyroid abnormality E21. 5 and Encounter for immunization Z23 [facility] [address] [id number] [address] [place] [phone] 17 Mar, 2016 [facility] [address] [id number] [address] [place] [phone] Mar, [facility] [address] [id number] [address] [place] [phone] 21 Feb, 2016 Renal insufficiency N28.9 an d Hyperparathyroidism E21.3 [facility] [address] [id number] [address] [place] [phone] 19 Feb, 2016 [facility] [address] [id number] [address] [place] [phone] 15 Feb, 2016 Renal insufficiency N28.9 an d Hyperparathyroidism E21.3 [facility] [address] [id number] [address] [place] [phone] 14 Feb, 2016 [facility] [address] [id number] [address] [place] [phone] 12 Feb, 2016 [facility] [address] [id number] [address] [place] [phone] 09 Feb, 2016 [facility] [address] [id number] [address] [place] [phone] Jan, [facility] [address] [id number] [address] [place] [id number] Jan, Arthritis M19.90 ; Lumbago w ith sciatica, right side M54.41 and Other chronic pain G89.29 [facility] [address] [id number] [address] [place] [phone] Jan, [facility] [address] [id number] [address] [place] [phone] Dec, Arthritis M19.90 ; Lumbago w ith sciatica, right side M54.41 and Other chronic pain G89.29 [facility] [address] [id number] [address] [place] [phone] Nov, Deficiency of other specifie d B group vitamins E53.8 ; Primary insomnia F51.01 ; Mood disorder F39 and Lumbago with sciatica, right side M54.41 [facility] [address] [facility]] [id number] [address] [place] [phone] 13 Nov, 2015 Hyperparathyroidism E21.3 [facility] [address] [facility] 3] [id number] [address] [place] [phone] Nov, Unspecified kidney failure N 19 and Hyperparathyroidism E21.3 [facility] [address] [facility] 3] [id number] [address] [place] [phone] October, Hyperparathyroidism E21.3 [facility] [address] [facility] 3] [id number] [address] [place] [phone] October, [facility] [address] [place] [id number] [address] [place] [phone] October, Hyperparathyroidism E21.3 [facility] [address] [facility] 3] [id number] [address] [place] [phone] October, Hyperparathyroidism E21.3 [facility] [address] [facility] 3] [id number] [address] [place] [phone] Sep, Hyperparathyroidism E21.3 ; Hypercholesterolemia E78.0 and Arthritis M19.90 [facility] [address] [facility]] [id number] [address] [place] [phone] Aug, [facility] [address] [place] [id number] [address] [place] [phone] Aug, Deficiency of other specifie d B group vitamins E53.8 [facility] [address] [facility] 3] [id number] [address] [place] [phone] Aug, [facility] [address] [facility] 3] [id number] [address] [place] [phone] Jul, Urinary frequency R35.0 [facility] [address] [facility] 3] [id number] [address] [place] [phone] Jul, Urinary frequency R35.0 [place] [address] [id number] [address] [place] [phone] Jul, [facility] [address] [id number] [address] [place] [phone] Jul, [facility] [address] [id number] [address] [place] [id number] Jun, Pain in left knee M25.562 [facility] [address] [id number] [address] [place] [phone] Jun, [facility] [address] [id number] [address] [place] [id number] May, Swelling of left knee joint M25.462 [facility] [address] [id number] [address] [place] [phone] May, [facility] [address] [facility]] [id number] [address] [place] [phone] May, [facility] [address] [id number] [address] [place] [phone] May, [facility] [address] [facility]] [id number] [address] [place] [phone] Apr, Renal insufficiency N28.9 an d Chronic kidney disease, stage 4 (severe) N18.4 [facility] [address] [facility]] [id number] [address] [place] [phone] Apr, Unspecified kidney failure N 19 [facility] [address] [facility] 3] [id number] [address] [place] [phone] Apr, Unspecified kidney failure N 19 [facility] [address] [facility] 3] [id number] [address] [place] [phone] Apr, [facility] [address] [facility]] [id number] [address] [place] [phone] Apr, Hyperparathyroidism, unspeci fied 252.00 [facility] [address] [facility]] [id number] [address] [place] [phone] Apr, [facility] [address] [id number] [address] [place] [id number] Mar, [facility] [address] [id number] [address] [place] [phone] Mar, [facility] [address] [facility]] [id number] [address] [place] [phone] Mar, Hyperparathyroidism, unspeci fied 252.00 [facility] [address] [id number] [address] [place] [phone] Feb, [facility] [address] [id number] [address] [place] [phone] Feb, Otalgia 388.70 [facility] [address] [facility]] [id number] [address] [place] [phone] Feb, [facility] [address] [facility]] [id number] [address] [place] [phone] Feb, [facility] [address] [id number] [address] [place] [phone] Jan, [facility] [address] [id number] [address] [place] [id number] Jan, Hyperparathyroidism, unspeci fied 252.00 [facility] [address] [facility]] [id number] [address] [place] [phone] Jan, [facility] [address] [facility]] [id number] [address] [place] [phone] Jan, Other B-complex deficiencies 266.2 and Hyperparathyroidism, unspecified 252.00 [facility] [address] [id number] [address] [place] [phone] Jan, [facility] [address] [facility]] [id number] [address] [place] [phone] Jan, [facility] [address] [facility]] [id number] [address] [place] [phone] Jan, [facility] [address] [id number] [address] [place] [phone] Dec, [facility] [address] [id number] [address] [place] [phone] Dec, [facility] [address] [id number] [address] [place] [phone] Dec, [facility] [address] [id number] [address] [place] [id number] Nov, Routine check-up V70.0 and P re-op exam V72.84 [facility] [address] [id number] [address] [place] [phone] Nov, [facility] [address] [id number] [address] [place] [phone] Nov, [facility] [address] [id number] [address] [place] [phone] October, [facility] [address] [id number] [address] [place] [phone] October, Other B-complex deficiencies 266.2 [facility] [address] [id number] [address] [place] [phone] October, [facility] [address] [id number] [address] [place] [phone] 14 Sep, 2014 [facility] [address] [id number] [address] [place] [phone] Sep, [facility] [address] [id number] [address] [place] [phone] Aug, [facility] [address] [id number] [address] [place] [phone] Aug, [facility] [address] [id number] [address] [place] [id number] 17 Aug, 2014 [facility] [address] [id number] [address] [place] [id number] Aug, [facility] [address] [id number] [address] [place] [address], [place] [id number] Aug, [facility] [address] [id number] [address] [place] [address], [place] [id number] Aug, 2014 [facility] [address] [id number] [address] [place] [address], [place] [id number] Jul, 2014 [facility] [address] [id number] [address] [place] [address], [place] [id number] Jul, 2014 [facility] [address] [id number] [address] [place] [address], [place] [id number] Jul, 2014 [facility] [address] [id number] [address] [place] [address], [place] [id number] Jul, 2014 [facility] [address] [id number] [address] [place] [address], [place] [id number] Jul, 2014 [facility] [address] [id number] [address] [place] [address], [place] [phone] Jul, 2014 [facility] [address] [id number] [address] [place] [address], [place] [id number] Jul, 2014 [facility] [address] [id number] [address] [place] [address], [place] [id number] Jul, 2014 [facility] [address] [id number] [address] [place] [address], [place] [id number] Jul, 2014 [facility] [address] [address] [id number] [address] [place] [address], [place] [address] Jul, 2014 [facility] [address] [id number] [address] [place] [address], [place] [address] Jul, 2014 [facility] [address] [id number] [address] [place] [address], [place] [address] Jul, 2014 [facility] [address] [id number] [address] [place] [address], [place] [address] Jul, 2014 [facility] [address] [id number] [address] [place] [address], [place] [address] Jul, [facility] [address] [id number] [address] [place] [address], [place] [address] Jun, [facility] [address] [id number] [address] [place] [address], [place] [address] Jun, [facility] [address] [id number] [address] [place] [address], [place] [address] Jun, [facility] [address] [id number] [address] [place] [address], [place] [address] Jun, [facility] [address] [id number] [address] [place] [address], [place] [address] Jun, [facility] [address] [id number] [address] [place] [address], [place] [address] Jun, [facility] [address] [id number] [address] [place] [address], [place] [address] Jun, [facility] [address] [id number] [address] [place] [address], [place] [address] Jun, [facility] [address] [id number] [address] [place] [address], [place] [address] Jun, [facility] [address] [id number] [address] [place] [address], [place] [address] Jun, [facility] [address] [id number] [address] [place] [address], [place] [address] Jun, [facility] [address] [id number] [address] [place] [address], [place] [address] Jun, [facility] [address] [id number] [address] [place] [address], [place] [address] Jun, [facility] [address] [id number] [address] [place] [address], [place] [address] Jun, [facility] [address] [id number] [address] [place] [address], [place] [address] May, [facility] [address] [id number] [address] [place] [address], [place] [address] 15 May, 2014 [facility] [address] [id number] [address] [place] [address], [place] [address] May, [facility] [address] [id number] [address] [place] [address], [place] [address] May, [facility] [address] [id number] [address] [place] [address], [place] [address] Apr, [facility] [address] [id number] [address] [place] [address], [place] [address] Apr, [facility] [address] [id number] [address] [place] [address], [place] [address] Apr, [facility] [address] [id number] [address] [place] [address], [place] [address] Apr, [facility] [address] [id number] [address] [place] [address], [place] [address] Apr, [facility] [address] [id number] [address] [place] [address], [place] [address] Apr, [facility] [address] [id number] [address] [place] [address], [place] [address] Mar, [facility] [address] [id number] [address] [place] [address], [place] [address] Mar, [facility] [address] [id number] [address] [place] [address] Mar, [facility] [address] [id number] [address] [place] [address], [place] [address] Mar, [facility] [address] [id number] [address] [place] [address], [place] [address] Mar, [facility] [address] [id number] [address] [place] [address], [place] [address] Mar, [facility] [address] [id number] [address] [place] [address], [place] [address] 13 Mar, 2013 [facility] [address] [id number] [address] [place] [address], [place] [address] 13 Mar, 2013 [facility] [address] [id number] [address] [place] [address], [place] [address] Mar, 2013 [facility] [address] [id number] [address] [place] [address], [place] [address] Mar, 2013 [facility] [address] [id number] [address] [place] [address], [place] [address] Mar, 2013 [facility] [address] [id number] [address] [place] [address], [place] [address] Mar, [facility] [address] [id number] [address] [place] [address], [place] [address] Mar, [facility] [address] [id number] [address] [place] [address], [place] [address] 26 Feb, 2013 [facility] [address] [id number] [address] [place] [address], [place] [address] 26 Sep, 2013 [facility] [address] [id number] [address] [place] [address], [place] [address] 23 Sep, 2013 [facility] [address] [id number] [address] [place] [address], [place] [address] 23 Sep, 2013 [facility] [address] [id number] [address] [place] [address], [place] [address] 19 Sep, 2013 [facility] [address] [id number] [address] [place] [address], [place] [address] 19 Sep, 2013 [facility] [address] [id number] [address] [place] [address], [place] [address] 13 Sep, 2013 [facility] [address] [id number] [address] [place] [address], [place] [address] 13 Sep, 2013 [facility] [address] [id number] [address] [place] [address], [place] [address] Feb, [facility] [address] [id number] [address] [place] [address], [place] [address] Feb, [facility] [address] [id number] [address] [place] [address], [place] [address] Jan, [facility] [address] [id number] [address] [place] [address], [place] [address] Jan, [facility] [address] [id number] [address] [place] [address], [place] [address] Dec, [facility] [address] [id number] [address] [place] [address], [place] [address] Dec, [facility] [address] [id number] [address] [place] [address], [place] [address] Dec, [facility] [address] [id number] [address] [place] [address], [place] [address] Dec, [facility] [address] [id number] [address] [place] [address], [place] [address] Dec, [facility] [address] [id number] [address] [place] [address], [place] [address] Dec, [facility] [address] [id number] [address] [place] [address], [place] [address] Nov, [facility] [address] [id number] [address] [place] [address], [place] [address] Nov, [facility] [address] [id number] [address] [place] [address], [place] [address] Nov, [facility] [address] [id number] [address] [place] [address], [place] [address] Nov, [facility] [address] [id number] [address] [place] [address], [place] [address] October, [facility] [address] [id number] [address] [place] [address], [place] [address] October, [facility] [address] [id number] [address] [place] [address], [place] [address] October, [facility] [address] [id number] [address] [place] [address], [place] [address] October, [facility] [address] [id number] [address] [place] [address], [place] [address] October, [facility] [address] [id number] [address] [place] [address], [place] [address] October, [facility] [address] [id number] [address] [place] [address], [place] [address] October, [facility] [address] [id number] [address] [place] [address], [place] [address] October, [facility] [address] [id number] [address] [place] [address], [place] [address] October, [facility] [address] [id number] [address] [place] [address], [place] [address] October, [facility] [address] [id number] [address] [place] [address], [place] [address] October, [facility] [address] [id number] [address] [place] [address], [place] [address] October, [facility] [address] [id number] [address] [place] [address], [place] [address] October, [facility] [address] [id number] [address] [place] [address], [place] [address] October, [facility] [address] [id number] [address] [place] [address], [place] [address] October, [facility] [address] [id number] [address] [place] [address], [place] [address] October, [facility] [address] [id number] [address] [place] [address], [place] [address] Sep, [facility] [address] [id number] [address] [place] [address], [place] [address] Sep, [facility] [address] [id number] [facility] [place] [address] 14 Sep, 2013 [facility] [address] [id number] [address] [place] [address], [place] [address] 14 Sep, 2013 [facility] [address] [id number] [address] [place] [address], [place] [address] 02 Sep, 2013 [facility] [address] [id number] [address] [place] [address], [place] [address] Sep, [facility] [address] [id number] [address] [place] [address], [place] [address] Aug, [facility] [address] [id number] [address] [place] [address], [place] [address] Aug, [facility] [address] [id number] [address] [place] [address], [place] [address] Aug, [facility] [address] [id number] [address] [place] [address], [place] [address] Aug, [facility] [address] [id number] [address] [place] [address], [place] [address] 05 Aug, 2013 [facility] [address] [id number] [address] [place] [address], [place] [address] 05 Aug, 2013 [facility] [address] [id number] [address] [place] [address], [place] [address] Jul, [facility] [address] [id number] [address] [place] [address], [place] [address] Jul, [facility] [address] [id number] [address] [place] [address], [place] [address] Jul, [facility] [address] [id number] [address] [place] [address], [place] [address] 03 Jul, 2013 [facility] [address] [id number] [address] [place] [address], [place] [address] 13 Jun, 2013 [facility] [address] [id number] [address] [place] [address], [place] [address] 13 Jun, 2013 [facility] [address] [id number] [address] [place] [address], [place] [address] May, [facility] [address] [id number] [address] [place] [address], [place] [address] May, [facility] [address] [id number] [address] [place] [address], [place] [address] May, [facility] [address] [id number] [address] [place] [address], [place] [address] May, [facility] [address] [id number] [address] [place] [address], [place] [address] May, [facility] [address] [id number] [address] [place] [address] Apr, [facility] [address] [id number] [address] [place] [address], [place] [address] Apr, [facility] [address] [id number] [address] [place] [address] Apr, [facility] [address] [id number] [address] [place] [address] Apr, [facility] [address] [id number] [address] [place] [address] 04 Apr, 2013 [facility] [address] [id number] [address] [place] [address] 04 Apr, 2013 [facility] [address] [id number] [address] [place] [address] 15 Mar, 2013 [facility] [address] [id number] [address] [place] [address], [place] [address] 15 Mar, 2013 [facility] [address] [id number] [address] [place] [address] 14 Mar, 2013 [facility] [address] [id number] [address] [place] [id number] 14 Mar, 2013 [facility] [address] [id number] [address] [place] [address], [place] [address] Mar, [facility] [address] [id number] [address] [place] [address], [place] [address] Mar, [facility] [address] [id number] [address] [place] [address], [place] [address] Feb, [facility] [address] [id number] [address] [place] [address], [place] [address] Feb, [facility] [address] [id number] [address] [place] [address], [place] [address] Feb, [facility] [address] [id number] [address] [place] [address], [place] [address] Jan, [facility] [address] [id number] [address] [place] [address], [place] [address] Jan, [facility] [address] [id number] [address] [place] [address], [place] [address] Jan, [facility] [address] [id number] [address] [place] [address], [place] [address] Jan, [facility] [address] [id number] [address] [place] [address], [place] [address] Jan, [facility] [address] [id number] [address] [place] [address], [place] [address] Jan, [facility] [address] [id number] [address] [place] [address], [place] [address] Dec, [facility] [address] [id number] [address] [place] [address], [place] [address] Dec, [facility] [address] [id number] [address] [place] [address], [place] [address] Dec, [facility] [address] [id number] [address] [place] [address], [place] [address] Dec, [facility] [address] [id number] [address] [place] [address], [place] [address] Dec, [facility] [address] [id number] [address] [place] [address], [place] [address] 09 Dec, 2012 [facility] [address] [id number] [address] [place] [address], [place] [address] Nov, [facility] [address] [id number] [address] [place] [address], [place] [address] Nov, [facility] [address] [id number] [address] [place] [address], [place] [address] Nov, [facility] [address] [id number] [address] [place] [address], [place] [address] Nov, [facility] [address] [id number] [address] [place] [address], [place] [address] Nov, [facility] [address] [id number] [address] [place] [address], [place] [address] Nov, [facility] [address] [id number] [address] [place] [address], [place] [address] October, [facility] [address] [id number] [address] [place] [address], [place] [address] October, [facility] [address] [id number] [address] [place] [address], [place] [address] October, [facility] [address] [id number] [address] [place] [address], [place] [address] October, [facility] [address] [id number] [address] [place] [address], [place] [address] October, [facility] [address] [id number] [address] [place] [address], [place] [address] Sep, [facility] [address] [id number] [address] [place] [address], [place] [address] Sep, [facility] [address] [id number] [address] [place] [address], [place] [address] Sep, [facility] [address] [id number] [address] [place] [address], [place] [address] Sep, [facility] [address] [id number] [address] [place] [address], [place] [address] Sep, [facility] [address] [id number] [address] [place] [address], [place] [address] 26 Aug, 2012 [facility] [address] [id number] [address] [place] [address], [place] [address] Aug, [facility] [address] [id number] [address] [place] [address], [place] [address] 04 Aug, 2012 [facility] [address] [id number] [address] [place] [address], [place] [address] Jul, [facility] [address] [id number] [address] [place] [address], [place] [address] 20 Jul, 2012 [facility] [address] [id number] [address] [place] [address], [place] [address] Jul, [facility] [address] [id number] [address] [place] [address], [place] [address] 08 Jul, 2012 [facility] [address] [id number] [address] [place] [address], [place] [address] 06 Jul, 2012 [facility] [address] [id number] [address] [place] [address], [place] [address] 05 Jul, 2012 [facility] [address] [id number] [address] [place] [address], [place] [address] 15 Jun, 2012 [facility] [address] [id number] [address] [place] [address], [place] [address] Apr, [facility] [address] [id number] [address] [place] [address], [place] [address] Apr, [facility] [address] [id number] [address] [place] [address], [place] [address] Apr, [facility] [address] [id number] [address] [place] [id number] Apr, [facility] [address] [id number] [address] [place] [address], [place] [address] Mar, [facility] [address] [id number] [address] [place] [address], [place] [address] Mar, [facility] [address] [id number] [address] [place] [address], [place] [address] Mar, [facility] [address] [id number] [address] [place] [address], [place] [address] Mar, [facility] [address] [id number] [address] [place] [address], [place] [address] Mar, [facility] [address] [id number] [address] [place] [address], [place] [address] Feb, [facility] [address] [id number] [address] [place] [address], [place] [address] Jan, [facility] [address] [id number] [address] [place] [address], [place] [address] Jan, [facility] [address] [id number] [address] [place] [address], [place] [address] Jan, [facility] [address] [id number] [address] [place] [address], [place] [address] Dec, [facility] [address] [id number] [address] [place] [address], [place] [address] Nov, [facility] [address] [id number] [address] [place] [address], [place] [address] Nov, [facility] [address] [id number] [address] [place] [address], [place] [address] Nov, [facility] [address] [id number] [address] [place] [address], [place] [address] Nov, [facility] [address] [id number] [address] [place] [address], [place] [address] Nov, [facility] [address] [id number] [address] [address] October, [facility] [address] [facility]NOTE [facility]] [id number] [address] [place] [id number] October, [facility] [address] [facility]NOTE [facility]] [id number] [address] [place] [id number] October, [facility] [address] [facility]] [id number] [address] [place] [id number] October, [facility] [address] [facility]] [id number] [address] [place] [id number] October, IMMUNIZATIONS No Known Immunizations SOCIAL HISTORY Never Assessed REASON FOR VISIT Controlled Refill Request PLAN OF CARE VITAL SIGNS MEDICATIONS Medication Instructions Dosage Frequency Start Date End Date Duration S tatus Hydrocodone-Acetaminophen 10-325 MG Orally 3 times a day 1 tablet a s needed 8h May, 28 days Active Zolpidem Tartrate 10 mg [...]
--- OUTSIDE RECORDS SUMMARY | 2020-01-25 08:23 | XMS REPORT ---
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 Name Role Phone STEPHAN CORDERO Unavailable PROBLEMS Type Condition ICD9-CM Code [id number] Code Onset Dates Condition S tatus SNOMED Code Problem Hypercholesteremia E78.0 Active 1 3037002 Problem Arthritis M19.90 Active 3675643 Problem Hyperparathyroidism E21.3 Active 16120694 Problem Primary insomnia F51.01 Active 397 2004 Problem Myalgia M79.1 Active 67647713 Problem Chronic kidney disease, stage 4 (severe) N18.4 Active 993202804 Problem BPV (benign positional vertigo), bilateral H81.13 Active 174037814 Problem Corns L84 Active 559696810 Problem Mood disorder F39 Active 594961 05 Problem 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 Active 50945540 Problem 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 Active 83024312 ALLERGIES No Information ENCOUNTERS Encounter Location Date Diagnosis [place] [id number] [place] [id number] [address] [place] [phone] Sep, [facility] [address] [place] [id number] [address] [place] [phone] Aug, Labyrinthitis of left ear H8 3.02 and Arthritis M19.90 [facility] [address] [facility] [id number] [address] [place] [phone] Aug, [facility] [address] [place] [id number] [address] [place] [phone] Jul, [facility] [address] [place] [id number] [address] [place] [id number] Jul, Arthritis M19.90 and Labyrin thitis of left ear H83.02 [place] [address] [place] [id number] [address] [place] [phone] 08 Jul, 2017 [place] [address] [address] Jun, [place] [address] [place] [id number] [place] [phone] Jun, Arthritis M19.90 and Labyrin thitis of left ear H83.02 [place] [address] [address] Jun, Pre-op evaluation Z01.818 ; BMI 40.0-44.9, adult Z68.41 and Encounter for immunization Z23 [place] [address] [address] May, Arthritis M19.90 and Labyrin thitis of left ear H83.02 [place] [address] [address] Apr, Labyrinthitis of left ear H8 3.02 [place] [address] [address] Apr, Arthritis M19.90 and Labyrin thitis of left ear H83.02 [place] [address] [address] Mar, Arthritis M19.90 and Labyrin thitis of left ear H83.02 [place] [address] [address] Mar, Chronic kidney disease, stag e 4 (severe) N18.4 [place] [address] [place] [id number] [place] [address] Feb, Arthritis M19.90 and Labyrin thitis of left ear H83.02 [place] [address] [place] [id number] [address] [place] [phone] Jan, Labyrinthitis of left ear H8 3.02 and 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 [facility] [address] [id number] [address] [place] [phone] Dec, Arthritis M19.90 [facility] [address] [facility] [id number] [address] [place] [phone] Dec, BPV (benign positional verti go), bilateral H81.13 [facility] [address] [facility] [id number] [address] [place] [phone] Dec, [facility] [address] [id number] [address] [place] [phone] Dec, [facility] [address] [facility] [id number] [address] [place] [phone] Dec, [facility] [address] [facility] [id number] [address] [place] [phone] Nov, Arthritis M19.90 and Deficie ncy of other specified B group vitamins E53.8 [facility] [address] [id number] [address] [place] [phone] Nov, Arthritis M19.90 [facility] [address] [facility] [id number] [address] [place] [address] Nov, Hyperparathyroidism E21.3 [facility] [address] [facility] [id number] [address] [place] [phone] October, [facility] [address] [facility] [id number] [address] [place] [phone] October, Hyperparathyroidism E21.3 [facility] [address] [facility] [id number] [address] [place] [phone] October, [facility] [address] [facility] [id number] [address] [place] [phone] October, Renal insufficiency N28.9 an d Hyperparathyroidism E21.3 [facility] [address] [facility] [id number] [address] [place] [phone] October, [facility] [address] [place] [id number] [address] [place] [phone] October, Renal insufficiency N28.9 an d Hyperparathyroidism E21.3 [facility] [address] [facility] [id number] [address] [place] [phone] October, Arthritis M19.90 [facility] [address] [place] [id number] [address] [place] [phone] Sep, [facility] [address] [address] Sep, Lumbar neuritis M54.16 ; Tho racic abscess J86.9 and 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 [facility] [address] [facility] [id number] [address] [place] [phone] Sep, [facility] [address] [place] [id number] [address] [place] [address] Aug, Arthritis M19.90 [facility] [address] [place] [id number] [address] [place] [address] Aug, Hyperparathyroidism E21.3 [facility] [address] [place] [id number] [address] [place] [address] Aug, Hyperparathyroidism E21.3 [facility] [address] [place] [id number] [address] [place] [phone] Aug, Arthritis M19.90 [facility] [id number] [place] [phone] Jul, Mass of throat R22.1 [facility] [address] [place] [id number] [address] [place] [phone] Jul, [facility] [address] [place] [id number] [address] [place] [phone] Jul, Arthritis M19.90 [facility] [address] [place] [id number] [address] [place] [phone] Jun, Arthritis M19.90 [facility] [address] [facility] [id number] [address] [place] [phone] 13 Jun, 2016 [facility] [address] [facility] [id number] [address] [place] [phone] 09 Jun, 2016 Renal insufficiency N28.9 an d 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 [facility] [address] [facility] [id number] [address] [place] [phone] May, Renal insufficiency N28.9 [facility] [address] [facility] [id number] [address] [place] [phone] 16 May, 2016 Renal insufficiency N28.9 [facility] [address] [facility] [id number] [address] [place] [phone] 14 May, 2016 [facility] [address] [facility] [id number] [address] [place] [phone] 16 Apr, 2016 [facility] [address] [facility] [id number] [address] [place] [phone] 16 Apr, 2016 [facility] [address] [facility] [id number] [address] [place] [phone] 14 Apr, 2016 Mass of throat R22.1 [facility] [address] [facility] [id number] [address] [place] [phone] 10 Apr, 2016 [facility] [address] [facility] [id number] [address] [place] [phone] 10 Apr, 2016 Mass of throat R22.1 [facility] [address] [facility] [id number] [address] [place] [phone] Apr, Mass of throat R22.1 [facility] [address] [facility] [id number] [address] [place] [phone] Mar, [facility] [address] [facility] [id number] [address] [place] [phone] Mar, [facility] [address] [facility] [id number] [address] [place] [phone] Mar, [facility] [address] [facility] [id number] [address] [place] [phone] Mar, Parathyroid abnormality E21. 5 and Encounter for immunization Z23 [facility] [address] [facility] [id number] [address] [place] [phone] Mar, [facility] [address] [facility] [id number] [address] [place] [phone] Mar, [facility] [address] [facility] [id number] [address] [place] [phone] 21 Feb, 2016 Renal insufficiency N28.9 an d Hyperparathyroidism E21.3 [facility] [address] [facility] [id number] [address] [place] [phone] 19 Feb, 2016 [facility] [address] [facility] [id number] [address] [place] [phone] 15 Feb, 2016 Renal insufficiency N28.9 an d Hyperparathyroidism E21.3 [facility] [address] [facility] [id number] [address] [place] [phone] 14 Feb, 2016 [facility] [address] [facility] [id number] [address] [place] [phone] 12 Feb, 2016 [facility] [address] [facility] [id number] [address] [place] [phone] 09 Feb, 2016 [facility] [address] [facility] [id number] [address] [place] [phone] 17 Jan, 2016 [facility] [address] [facility] [id number] [address] [place] [phone] Jan, Arthritis M19.90 ; Lumbago w ith sciatica, right side M54.41 and Other chronic pain G89.29 [facility] [address] [facility] [id number] [address] [place] [phone] Jan, [facility] [address] [facility] [id number] [address] [place] [phone] Dec, Arthritis M19.90 ; Lumbago w ith sciatica, right side M54.41 and Other chronic pain G89.29 [facility] [address] [facility] [id number] [address] [place] [phone] 16 Nov, 2015 Deficiency of other specifie d B group vitamins E53.8 ; Primary insomnia F51.01 ; Mood disorder F39 and Lumbago with sciatica, right side M54.41 [place] [address] [facility] [id number] [address] [place] [phone] Nov, Hyperparathyroidism E21.3 [facility] [address] [facility] [id number] [address] [place] [phone] Nov, Unspecified kidney failure N 19 and Hyperparathyroidism E21.3 [place] [address] [facility] [id number] [address] [place] [phone] October, Hyperparathyroidism E21.3 [facility] [address] [facility] [id number] [address] [place] [phone] October, [facility] [address] [facility] [id number] [address] [place] [phone] October, Hyperparathyroidism E21.3 [facility] [address] [facility] [id number] [address] [place] [phone] October, Hyperparathyroidism E21.3 [facility] [address] [facility] [id number] [address] [place] [phone] Sep, Hyperparathyroidism E21.3 ; Hypercholesterolemia E78.0 and Arthritis M19.90 [facility] [address] [facility] [id number] [address] [place] [phone] Aug, [facility] [address] [facility] [id number] [address] [place] [phone] Aug, Deficiency of other specifie d B group vitamins E53.8 [facility] [address] [facility] [id number] [address] [place] [phone] Aug, [facility] [address] [facility] [id number] [address] [place] [phone] Jul, Urinary frequency R35.0 [facility] [address] [facility] [id number] [address] [place] [phone] Jul, Urinary frequency R35.0 [facility] [address] [facility] [id number] [address] [place] [phone] Jul, [facility] [address] [place] [id number] [address] [place] [phone] Jul, [facility] [address] [facility] [id number] [address] [place] [phone] Jun, Pain in left knee M25.562 [facility] [address] [facility] [id number] [address] [place] [phone] Jun, [facility] [address] [place] [id number] [address] [place] [phone] May, Swelling of left knee joint M25.462 [facility] [address] [facility] [id number] [address] [place] [phone] 16 May, 2015 [facility] [address] [facility] [id number] [address] [place] [phone] May, [facility] [address] [place] [id number] [address] [place] [phone] May, [facility] [address] [facility] [id number] [address] [place] [phone] Apr, Renal insufficiency N28.9 an d Chronic kidney disease, stage 4 (severe) N18.4 [facility] [address] [id number] [address] [place] [phone] Apr, Unspecified kidney failure N 19 [facility] [address] [id number] [address] [place] [phone] Apr, Unspecified kidney failure N 19 [facility] [address] [facility] [id number] [address] [place] [phone] Apr, [facility] [address] [id number] [address] [place] [phone] Apr, Hyperparathyroidism, unspeci fied 252.00 [facility] [address] [id number] [address] [place] [phone] Apr, [facility] [address] [facility] [id number] [address] [place] [phone] Mar, [facility] [address] [facility] [id number] [address] [place] [phone] Mar, [facility] [address] [id number] [address] [place] [phone] Mar, Hyperparathyroidism, unspeci fied 252.00 [facility] [address] [id number] [address] [place] [phone] Feb, [facility] [address] [facility] [id number] [address] [place] [phone] Feb, Otalgia 388.70 [facility] [address] [facility] [id number] [address] [place] [phone] Feb, [facility] [address] [facility] [id number] [address] [place] [phone] Feb, [facility] [address] [facility] [id number] [address] [place] [phone] Jan, [facility] [address] [facility] [id number] [address] [place] [phone] Jan, Hyperparathyroidism, unspeci fied 252.00 [facility] [address] [id number] [address] [place] [phone] Jan, [facility] [address] [id number] [address] [place] [phone] Jan, Other B-complex deficiencies 266.2 and Hyperparathyroidism, unspecified 252.00 [facility] [address] [id number] [address] [place] [phone] Jan, [facility] [address] [id number] [address] [place] [phone] Jan, [facility] [address] [id number] [address] [place] [phone] Jan, [facility] [address] [id number] [address] [place] [phone] Dec, [facility] [address] [id number] [address] [place] [phone] Dec, [facility] [address] [id number] [address] [place] [phone] Dec, [facility] [address] [id number] [address] [place] [phone] Nov, Routine check-up V70.0 and P re-op exam V72.84 [facility] [address] [id number] [address] [place] [phone] Nov, [facility] [address] [id number] [address] [place] [phone] Nov, [facility] [address] [id number] [address] [place] [phone] October, [facility] [address] [id number] [address] [place] [phone] October, Other B-complex deficiencies 266.2 [facility] [address] [id number] [address] [place] [phone] October, [facility] [address] [id number] [address] [place] [phone] 14 Sep, 2014 [facility] [address] [id number] [address] [place] [address], [place] [phone] 13 Sep, 2014 [facility] [address] [id number] [address] [place] [address], [place] [phone] 20 Aug, 2014 [facility] [address] [id number] [address] [place] [address], [place] [id number] 20 Aug, 2014 [facility] [address] [id number] [address] [place] [address], [place] [phone] 17 Aug, 2014 [facility] [address] [id number] [address] [place] [address], [place] [phone] 17 Aug, 2014 [facility] [address] [id number] [address] [place] [address], [place] [id number] 11 Aug, 2014 [facility] [address] [id number] [address] [place] [address], [place] [phone] 11 Aug, 2014 [facility] [address] [id number] [address] [place] [address], [place] [id number] 18 Jul, 2014 [facility] [address] [id number] [address] [place] [address], [place] [id number] 18 Jul, 2014 [facility] [address] [id number] [address] [place] [address], [place] [phone] 17 Jul, 2014 [facility] [address] [id number] [address] [place] [address], [place] [phone] 17 Jul, 2014 [facility] [address] [id number] [address] [place] [phone] 12 Jul, 2014 [facility] [address] [id number] [address] [place] [address], [place] [phone] 12 Jul, 2014 [facility] [address] [id number] [address] [place] [address], [place] [phone] 10 Jul, 2014 [facility] [address] [id number] [address] [place] [phone] 10 Jul2014 [facility] [address] [id number] [address] [place] [address], [place] [address] Jul, 2014 [facility] [address] [id number] [address] [place] [address], [place] [id number] Jul, 2014 [facility] [address] [id number] [address] [place] [address], [place] [address] Jul, 2014 [facility] [address] [id number] [address] [place] [address], [place] [address] Jul, 2014 [facility] [address] [id number] [address] [place] [address], [place] [address] Jul, [facility] [address] [id number] [address] [place] [address], [place] [address] Jul, [facility] [address] [id number] [address] [place] [address], [place] [address] Jun, [facility] [address] [id number] [address] [place] [address], [place] [address] Jun, [facility] [address] [id number] [address] [place] [address], [place] [address] Jun, [facility] [address] [id number] [address] [place] [id number] Jun, [facility] [address] [id number] [address] [place] [id number] Jun, [facility] [address] [id number] [address] [place] [id number] Jun, [facility] [address] [id number] [address] [place] [address], [place] [address] Jun, [facility] [address] [id number] [address] [place] [address], [place] [address] Jun, [facility] [address] [id number] [address] [place] [id number] Jun, [facility] [address] [id number] [address] [place] [id number] Jun, [facility] [address] [id number] [address] [place] [address], [place] [address] Jun, [facility] [address] [id number] [address] [place] [address], [place] [address] Jun, [facility] [address] [id number] [address] [place] [address], [place] [address] Jun, [facility] [address] [id number] [address] [place] [address], [place] [id number] Jun, [facility] [address] [id number] [address] [place] [address], [place] [id number] May, [facility] [address] [id number] [address] [place] [address], [place] [address] May, [facility] [address] [id number] [address] [place] [address], [place] [address] May, [facility] [address] [id number] [address] [place] [address], [place] [id number] May, [facility] [address] [id number] [address] [place] [address], [place] [id number] Apr, [facility] [address] [id number] [address] [place] [address], [place] [id number] Apr, [facility] [address] [id number] [address] [place] [address], [place] [address] Apr, [facility] [address] [id number] [address] [place] [address], [place] [id number] Apr, [facility] [facility] [address] [id number] [address] [place] [address], [place] [address] Apr, [facility] [address] [id number] [address] [place] [address], [place] [address] Apr, [facility] [address] [id number] [address] [place] [address], [place] [address] 24 Mar, 2014 [facility] [address] [id number] [address] [place] [address], [place] [address] 24 Mar, 2014 [facility] [address] [id number] [address] [place] [address], [place] [address] Mar, [facility] [address] [id number] [address] [place] [address], [place] [address] 22 Mar, 2014 [facility] [address] [id number] [address] [place] [address], [place] [address] 15 Mar, 2014 [facility] [address] [id number] [address] [place] [address], [place] [address] 15 Mar, 2014 [facility] [address] [id number] [address] [place] [address], [place] [address] Mar, [facility] [address] [id number] [address] [place] [address], [place] [address] 13 Mar, 2014 [facility] [address] [id number] [address] [place] [address], [place] [address] 07 Mar, 2013 [facility] [address] [id number] [address] [place] [address], [place] [address] 07 Mar, 2014 [facility] [address] [id number] [address] [place] [address], [place] [address] 07 Mar, 2014 [facility] [address] [id number] [address] [place] [address], [place] [address] 07 Mar, 2014 [facility] [address] [id number] [address] [place] [address], [place] [address] 06 Mar, 2014 [facility] [address] [id number] [address] [place] [address], [place] [address] 26 Feb, 2013 [facility] [address] [id number] [address] [place] [address], [place] [address] 26 Feb, 2013 [facility] [address] [id number] [address] [place] [address], [place] [address] 23 Feb, 2013 [facility] [address] [id number] [address] [place] [address], [place] [address] 23 Feb, 2014 [facility] [address] [id number] [facility] [place] [address] 19 Feb, 2014 [facility] [address] [id number] [facility] [place] [address] 19 Feb, 2014 [facility] [address] [id number] [address] [place] [address], [place] [address] 13 Feb, 2014 [facility] [address] [id number] [address] [place] [address], [place] [address] 13 Feb, 2014 [facility] [address] [id number] [address] [place] [address], [place] [address] Feb, [facility] [address] [id number] [address] [place] [address], [place] [address] Feb, [facility] [address] [id number] [address] [place] [address], [place] [address] Jan, [facility] [address] [id number] [address] [place] [address], [place] [address] Jan, [facility] [address] [id number] [address] [place] [address], [place] [address] Dec, [facility] [address] [id number] [address] [place] [address], [place] [address] Dec, [facility] [address] [id number] [address] [place] [address], [place] [address] Dec, [facility] [address] [id number] [address] [place] [address], [place] [address] Dec, [facility] [address] [id number] [address] [place] [address], [place] [address] Dec, [facility] [address] [id number] [address] [place] [address], [place] [address] Dec, [facility] [address] [id number] [address] [place] [address], [place] [address] 16 Nov, 2013 [facility] [address] [id number] [address] [place] [address], [place] [address] Nov, [facility] [address] [id number] [address] [place] [address], [place] [address] Nov, [facility] [address] [id number] [address] [place] [address], [place] [address] Nov, [facility] [address] [id number] [address] [place] [address], [place] [address] October, [facility] [address] [id number] [address] [place] [address], [place] [address] October, [facility] [address] [id number] [address] [place] [address], [place] [address] October, [facility] [address] [id number] [address] [place] [address], [place] [address] October, [facility] [address] [id number] [address] [place] [address], [place] [address] October, [facility] [address] [id number] [address] [place] [address], [place] [address] October, [facility] [address] [id number] [address] [place] [address], [place] [address] October, [facility] [address] [id number] [address] [place] [address], [place] [address] October, [facility] [address] [id number] [address] [place] [address], [place] [address] October, [facility] [address] [id number] [address] [place] [address], [place] [address] October, [facility] [address] [id number] [address] [place] [address], [place] [address] October, [facility] [address] [id number] [address] [place] [address], [place] [address] October, [facility] [address] [id number] [address] [place] [address], [place] [address] October, [facility] [address] [id number] [address] [place] [address], [place] [address] October, [facility] [address] [id number] [address] [place] [address], [place] [address] October, [facility] [address] [id number] [address] [place] [address], [place] [address] October, [facility] [address] [id number] [address] [place] [address], [place] [address] Sep, [facility] [address] [id number] [address] [place] [address], [place] [address] Sep, [facility] [address] [id number] [address] [place] [address], [place] [address] Sep, [facility] [address] [id number] [address] [place] [address], [place] [address] Sep, [facility] [address] [id number] [address] [place] [address], [place] [address] Sep, [facility] [address] [id number] [address] [place] [address], [place] [address] Sep, [facility] [address] [id number] [address] [place] [address], [place] [address] Aug, [facility] [address] [id number] [address] [place] [address], [place] [address] Aug, [facility] [address] [id number] [address] [place] [address], [place] [address] Aug, [facility] [address] [id number] [address] [place] [address], [place] [address] Aug, [facility] [address] [id number] [address] [place] [address], [place] [address] Aug, [facility] [address] [id number] [address] [place] [address], [place] [address] Aug, [facility] [address] [id number] [address] [place] [address], [place] [address] Jul, [facility] [address] [id number] [address] [place] [address], [place] [address] Jul, [facility] [address] [id number] [address] [place] [address], [place] [address] Jul, [facility] [address] [id number] [address] [place] [address], [place] [address] Jul, [facility] [address] [id number] [address] [place] [address], [place] [address] Jun, [facility] [address] [id number] [address] [place] [address], [place] [address] Jun, [facility] [address] [id number] [address] [place] [address], [place] [address] May, [facility] [address] [id number] [address] [place] [address], [place] [address] May, [facility] [address] [id number] [address] [place] [address], [place] [address] May, [facility] [address] [id number] [address] [place] [address], [place] [address] May, [facility] [address] [id number] [address] [place] [address], [place] [address] May, [facility] [address] [id number] [address] [place] [address], [place] [address] Apr, [facility] [address] [id number] [address] [place] [address] Apr, [facility] [address] [id number] [address] [place] [address], [place] [address] Apr, [facility] [address] [id number] [address] [place] [address], [place] [address] Apr, [facility] [address] [id number] [address] [place] [address], [place] [address] Apr, [facility] [address] [id number] [address] [place] [address], [place] [address] 04 Apr, 2013 [facility] [address] [id number] [address] [place] [address], [place] [address] 15 Mar, 2013 [facility] [address] [id number] [address] [place] [address], [place] [address] 15 Mar, 2013 [facility] [address] [id number] [address] [place] [address], [place] [address] 14 Mar, 2013 [facility] [address] [id number] [address] [place] [address], [place] [address] 14 Mar, 2013 [facility] [address] [id number] [address] [place] [address], [place] [address] Mar, [facility] [address] [id number] [address] [place] [address], [place] [address] Mar, [facility] [address] [id number] [address] [place] [address], [place] [address] 23 Feb, 2013 [facility] [address] [id number] [address] [place] [address], [place] [address] 19 Feb, 2013 [facility] [address] [id number] [address] [place] [address], [place] [address] 04 Feb, 2013 [facility] [address] [id number] [address] [place] [address], [place] [address] 30 Jan, 2013 [facility] [address] [id number] [address] [place] [address], [place] [address] Jan, [facility] [address] [id number] [address] [place] [address], [place] [address] Jan, [facility] [address] [id number] [address] [place] [address], [place] [address] Jan, [facility] [address] [id number] [address] [place] [address], [place] [address] Jan, [facility] [address] [id number] [address] [place] [address] [address] Jan, [facility] [address] [id number] [address] [place] [address], [place] [address] Dec, [facility] [address] [id number] [address] [place] [address], [place] [address] Dec, [facility] [address] [id number] [address] [place] [address], [place] [address] Dec, [facility] [address] [id number] [address] [place] [address], [place] [address] Dec, [facility] [address] [id number] [address] [place] [address], [place] [address] Dec, [facility] [address] [id number] [address] [place] [address], [place] [address] Dec, [facility] [address] [id number] [address] [place] [address], [place] [address] Nov, [facility] [address] [id number] [address] [place] [address], [place] [address] Nov, [facility] [address] [id number] [address] [place] [address], [place] [address] Nov, [facility] [address] [id number] [address] [place] [address], [place] [address] Nov, [facility] [address] [id number] [address] [place] [address], [place] [address] Nov, [facility] [address] [id number] [address] [place] [address], [place] [address] Nov, [facility] [address] [id number] [address] [place] [address], [place] [address] October, [facility] [address] [id number] [address] [place] [address], [place] [address] October, [facility] [address] [id number] [address] [place] [address], [place] [address] October, [facility] [address] [id number] [address] [place] [address], [place] [address] 15 Oct, 2012 [facility] [address] [id number] [address] [place] [address], [place] [address] October, [facility] [address] [id number] [address] [place] [address], [place] [address] Sep, [facility] [address] [id number] [address] [place] [address], [place] [address] Sep, [facility] [address] [id number] [address] [place] [address], [place] [address] Sep, [facility] [address] [id number] [address] [place] [address], [place] [address] Sep, [facility] [address] [id number] [address] [place] [address], [place] [address] Sep, [facility] [address] [id number] [address] [place] [address], [place] [address] Aug, [facility] [address] [id number] [address] [place] [address], [place] [address] 07 Aug, 2012 [facility] [address] [id number] [address] [place] [address], [place] [address] 04 Aug, 2012 [facility] [address] [id number] [address] [place] [address], [place] [address] Jul, [facility] [address] [id number] [address] [place] [address], [place] [address] 20 Jul, 2012 [facility] [address] [id number] [address] [place] [address], [place] [address] 11 Jul, 2012 [facility] [address] [id number] [address] [place] [address], [place] [address] 08 Jul, 2012 [facility] [address] [id number] [address] [place] [address], [place] [address] 06 Jul, 2012 [facility] [address] [id number] [address] [place] [address], [place] [address] Jul, [facility] [address] [id number] [address] [place] [address], [place] [address] Jun, [facility] [address] [id number] [address] [place] [address], [place] [address] Apr, [facility] [address] [id number] [address] [place] [address], [place] [address] Apr, [facility] [address] [id number] [address] [place] [address], [place] [address] Apr, [facility] [address] [id number] [address] [place] [address], [place] [address] Apr, [facility] [address] [id number] [address] [place] [address], [place] [address] Mar, [facility] [address] [id number] [address] [place] [address], [place] [address] Mar, [facility] [address] [id number] [address] [place] [address], [place] [address] Mar, [facility] [address] [id number] [address] [place] [address], [place] [address] Mar, [facility] [address] [id number] [address] [place] [address], [place] [address] Mar, [facility] [address] [id number] [address] [place] [address], [place] [address] Feb, [facility] [address] [id number] [address] [place] [address] Jan, [facility] [address] [id number] [address] [place] [address], [place] [address] Jan, [facility] [address] [id number] [address] [place] [address], [place] [address] Jan, [facility] [address] [id number] [address] [place] [address], [place] [address] Dec, [facility] [address] [id number] [address] [place] [id number] 25 Nov, 2011 [facility] [address] [id number] [address] [place] [id number] Nov, [facility] [address] [id number] [address] [place] [id number] Nov, [facility] [address] [id number] [address] [place] [id number] Nov, [facility] [address] [id number] [address] [place] [id number] Nov, [facility] [address] [id number] [address] [place] [id number] October, [facility] [address] [id number] [address] [place] [id number] October, [facility] [address] [facility] [id number] [address] [place] [id number] October, [facility] [address] [id number] [address] [place] [id number] October, [facility] [address] [facility] [id number] [address] [place] [id number] October, IMMUNIZATIONS No Known Immunizations SOCIAL HISTORY Never Assessed REASON FOR VISIT Dizziness PLAN OF CARE VITAL SIGNS MEDICATIONS Unknown [...]
--- OUTSIDE RECORDS SUMMARY | 2020-01-25 08:24 | XMS REPORT ---
Author Author Velma CORDERO Organization [facility] Address [address] [place] [address] Care Team Providers Care Tax Accountant Name Role Phone STEPHAN CORDERO Unavailable PROBLEMS Type Condition ICD9-CM Code TAP22-FV Code Onset Dates Condition S tatus SNOMED Code Problem Hypercholesteremia E78.0 Active 1 0102202 Problem Arthritis M19.90 Active 1952817 Problem Hyperparathyroidism E21.3 Active 09082285 Problem Primary insomnia F51.01 Active 397 2004 Problem Myalgia M79.1 Active 64290663 Problem Chronic kidney disease, stage 4 (severe) N18.4 Active 095027091 Problem BPV (benign positional vertigo), bilateral H81.13 Active 918228671 Problem Corns L84 Active 374488222 Problem Mood disorder F39 Active 833639 05 Problem 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 Active 29497250 Problem 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 Active 63351808 ALLERGIES No Information ENCOUNTERS Encounter Location Date Diagnosis [place] [id number] [place] [id number] [address] [place] [phone] Sep, [facility] [address] [place] [id number] [address] [place] [id number] Aug, Labyrinthitis of left ear H8 3.02 and Arthritis M19.90 [facility] [address] [facility] [id number] [address] [place] [phone] Aug, [facility] [address] [place] [id number] [address] [place] [phone] Jul, [facility] [address] [place] [id number] [address] [place] [id number] Jul, Arthritis M19.90 and Labyrin thitis of left ear H83.02 [place] [address] [place] [id number] [address] [place] [id number] 08 Jul, 2017 [place] [address] [phone] Jun, [place] [address] [place] [id number] [place] [phone] Jun, Arthritis M19.90 and Labyrin thitis of left ear H83.02 [place] [address] [address] Jun, Pre-op evaluation Z01.818 ; BMI 40.0-44.9, adult Z68.41 and Encounter for immunization Z23 [place] [address] [address] May, Arthritis M19.90 and Labyrin thitis of left ear H83.02 [place] [address] [address] Apr, Labyrinthitis of left ear H8 3.02 [place] [address] [id number] Apr, Arthritis M19.90 and Labyrin thitis of left ear H83.02 [place] [address] [id number] Mar, Arthritis M19.90 and Labyrin thitis of left ear H83.02 [place] [address] [address] Mar, Chronic kidney disease, stag e 4 (severe) N18.4 [place] [address] [place] [id number] [place] [phone] Feb, Arthritis M19.90 and Labyrin thitis of left ear H83.02 [place] [address] [place] [id number] [address] [place] [id number] Jan, Labyrinthitis of left ear H8 3.02 and 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 [facility] [address] [id number] [address] [place] [phone] Dec, Arthritis M19.90 [facility] [address] [facility] [id number] [address] [place] [id number] Dec, BPV (benign positional verti go), bilateral H81.13 [facility] [address] [facility] [id number] [address] [place] [id number] Dec, [facility] [address] [id number] [address] [place] [phone] Dec, [facility] [address] [facility] [id number] [address] [place] [id number] Dec, [facility] [address] [facility] [id number] [address] [place] [phone] Nov, Arthritis M19.90 and Deficie ncy of other specified B group vitamins E53.8 [facility] [address] [id number] [address] [place] [id number] Nov, Arthritis M19.90 [facility] [address] [facility] [id number] [address] [place] [id number] Nov, Hyperparathyroidism E21.3 [facility] [address] [facility] [id number] [address] [place] [phone] October, [facility] [address] [facility] [id number] [address] [place] [phone] October, Hyperparathyroidism E21.3 [facility] [address] [facility] [id number] [address] [place] [id number] October, [facility] [address] [facility] [id number] [address] [place] [phone] October, Renal insufficiency N28.9 an d Hyperparathyroidism E21.3 [facility] [address] [facility] [id number] [address] [place] [phone] October, [facility] [address] [place] [id number] [address] [place] [id number] October, Renal insufficiency N28.9 an d Hyperparathyroidism E21.3 [facility] [address] [facility] [id number] [address] [place] [phone] October, Arthritis M19.90 [facility] [address] [place] [id number] [address] [place] [phone] Sep, [facility] [address] [address] Sep, Lumbar neuritis M54.16 ; Tho racic abscess J86.9 and 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 [facility] [address] [facility] [id number] [address] [place] [id number] Sep, [facility] [address] [place] [id number] [address] [place] [id number] Aug, Arthritis M19.90 [facility] [address] [place] [id number] [address] [place] [phone] Aug, Hyperparathyroidism E21.3 [facility] [address] [place] [id number] [address] [place] [phone] Aug, Hyperparathyroidism E21.3 [facility] [address] [place] [id number] [address] [place] [id number] Aug, Arthritis M19.90 [facility] [id number] [place] [phone] Jul, Mass of throat R22.1 [facility] [address] [place] [id number] [address] [place] [id number] Jul, [facility] [address] [place] [id number] [address] [place] [phone] Jul, Arthritis M19.90 [facility] [address] [place] [id number] [address] [place] [phone] Jun, Arthritis M19.90 [facility] [address] [facility] [id number] [address] [place] [id number] 13 Jun, 2016 [facility] [address] [facility] [id number] [address] [place] [phone] 09 Jun, 2016 Renal insufficiency N28.9 an d 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 [facility] [address] [facility] [id number] [address] [place] [phone] 05 Jun, 2016 Medicare welcome exam Z00.00 ; Encounter for immunization Z23 ; Arthritis M19.90 ; Medicare annual wellness visit, initial Z00.00 ; Medicare annual wellness visit, subsequent Z00.00 and 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 [facility] [address] [facility] [id number] [address] [place] [phone] 29 May, 2016 Renal insufficiency N28.9 an d 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 [facility] [address] [facility] [id number] [address] [place] [phone] May, Renal insufficiency N28.9 [facility] [address] [facility] [id number] [address] [place] [id number] 16 May, 2016 Renal insufficiency N28.9 [facility] [address] [facility] [id number] [address] [place] [phone] May, [facility] [address] [facility] [id number] [address] [place] [phone] Apr, [facility] [address] [facility] [id number] [address] [place] [id number] 16 Apr, 2016 [facility] [address] [facility] [id number] [address] [place] [id number] 14 Apr, 2016 Mass of throat R22.1 [facility] [address] [facility] [id number] [address] [place] [id number] 10 Apr, 2016 [facility] [address] [facility] [id number] [address] [place] [id number] 10 Apr, 2016 Mass of throat R22.1 [facility] [address] [facility] [id number] [address] [place] [phone] Apr, Mass of throat R22.1 [facility] [address] [facility] [id number] [address] [place] [phone] Mar, [facility] [address] [facility] [id number] [address] [place] [phone] Mar, [facility] [address] [facility] [id number] [address] [place] [phone] Mar, [facility] [address] [facility] [id number] [address] [place] [phone] Mar, Parathyroid abnormality E21. 5 and Encounter for immunization Z23 [facility] [address] [facility] [id number] [address] [place] [phone] Mar, [facility] [address] [facility] [id number] [address] [place] [phone] Mar, [facility] [address] [facility] [id number] [address] [place] [id number] 21 Feb, 2016 Renal insufficiency N28.9 an d Hyperparathyroidism E21.3 [facility] [address] [facility] [id number] [address] [place] [id number] 19 Feb, 2016 [facility] [address] [facility] [id number] [address] [place] [phone] 15 Feb, 2016 Renal insufficiency N28.9 an d Hyperparathyroidism E21.3 [facility] [address] [facility] [id number] [address] [place] [phone] 14 Feb, 2016 [facility] [address] [facility] [id number] [address] [place] [phone] 12 Feb, 2016 [facility] [address] [facility] [id number] [address] [place] [phone] 09 Feb, 2016 [facility] [address] [facility] [id number] [address] [place] [phone] 17 Jan, 2016 [facility] [address] [facility] [id number] [address] [place] [id number] Jan, Arthritis M19.90 ; Lumbago w ith sciatica, right side M54.41 and Other chronic pain G89.29 [facility] [address] [facility] [id number] [address] [place] [phone] Jan, [facility] [address] [facility] [id number] [address] [place] [id number] Dec, Arthritis M19.90 ; Lumbago w ith sciatica, right side M54.41 and Other chronic pain G89.29 [facility] [address] [facility] [id number] [address] [place] [phone] 16 Nov, 2015 Deficiency of other specifie d B group vitamins E53.8 ; Primary insomnia F51.01 ; Mood disorder F39 and Lumbago with sciatica, right side M54.41 [place] [address] [facility] [id number] [address] [place] [phone] Nov, Hyperparathyroidism E21.3 [facility] [address] [facility] [id number] [address] [place] [phone] Nov, Unspecified kidney failure N 19 and Hyperparathyroidism E21.3 [place] [address] [facility] [id number] [address] [place] [phone] October, Hyperparathyroidism E21.3 [facility] [address] [facility] [id number] [address] [place] [phone] October, [facility] [address] [facility] [id number] [address] [place] [id number] October, Hyperparathyroidism E21.3 [facility] [address] [facility] [id number] [address] [place] [phone] October, Hyperparathyroidism E21.3 [facility] [address] [facility] [id number] [address] [place] [phone] Sep, Hyperparathyroidism E21.3 ; Hypercholesterolemia E78.0 and Arthritis M19.90 [facility] [address] [facility] [id number] [address] [place] [phone] Aug, [facility] [address] [facility] [id number] [address] [place] [phone] Aug, Deficiency of other specifie d B group vitamins E53.8 [facility] [address] [facility] [id number] [address] [place] [phone] Aug, [facility] [address] [facility] [id number] [address] [place] [phone] Jul, Urinary frequency R35.0 [facility] [address] [facility] [id number] [address] [place] [phone] Jul, Urinary frequency R35.0 [facility] [address] [facility] [id number] [address] [place] [phone] Jul, [facility] [address] [place] [id number] [address] [place] [id number] Jul, [facility] [address] [facility] [id number] [address] [place] [id number] Jun, Pain in left knee M25.562 [facility] [address] [facility] [id number] [address] [place] [phone] Jun, [facility] [address] [place] [id number] [address] [place] [id number] May, Swelling of left knee joint M25.462 [facility] [address] [facility] [id number] [address] [place] [id number] 16 May, 2015 [facility] [address] [facility] [id number] [address] [place] [phone] May, [facility] [address] [place] [id number] [address] [place] [phone] May, [facility] [address] [facility] [id number] [address] [place] [id number] Apr, Renal insufficiency N28.9 an d Chronic kidney disease, stage 4 (severe) N18.4 [facility] [address] [id number] [address] [place] [phone] Apr, Unspecified kidney failure N 19 [facility] [address] [id number] [address] [place] [id number] Apr, Unspecified kidney failure N 19 [facility] [address] [facility] [id number] [address] [place] [phone] Apr, [facility] [address] [id number] [address] [place] [id number] Apr, Hyperparathyroidism, unspeci fied 252.00 [facility] [address] [id number] [address] [place] [phone] Apr, [facility] [address] [facility] [id number] [address] [place] [phone] Mar, [facility] [address] [facility] [id number] [address] [place] [id number] Mar, [facility] [address] [id number] [address] [place] [id number] Mar, Hyperparathyroidism, unspeci fied 252.00 [facility] [address] [id number] [address] [place] [id number] Feb, [facility] [address] [facility] [id number] [address] [place] [phone] Feb, Otalgia 388.70 [facility] [address] [facility] [id number] [address] [place] [phone] Feb, [facility] [address] [facility] [id number] [address] [place] [id number] Feb, [facility] [address] [facility] [id number] [address] [place] [phone] Jan, [facility] [address] [facility] [id number] [address] [place] [id number] Jan, Hyperparathyroidism, unspeci fied 252.00 [facility] [address] [id number] [address] [place] [id number] Jan, [facility] [address] [id number] [address] [place] [phone] Jan, Other B-complex deficiencies 266.2 and Hyperparathyroidism, unspecified 252.00 [facility] [address] [id number] [address] [place] [phone] Jan, [facility] [address] [id number] [address] [place] [phone] Jan, [facility] [address] [id number] [address] [place] [phone] Jan, [facility] [address] [id number] [address] [place] [phone] Dec, [facility] [address] [id number] [address] [place] [phone] Dec, [facility] [address] [id number] [address] [place] [phone] Dec, [facility] [address] [id number] [address] [place] [phone] Nov, Routine check-up V70.0 and P re-op exam V72.84 [facility] [address] [id number] [address] [place] [phone] Nov, [facility] [address] [id number] [address] [place] [phone] Nov, [facility] [address] [id number] [address] [place] [phone] October, [facility] [address] [id number] [address] [place] [phone] October, Other B-complex deficiencies 266.2 [facility] [address] [id number] [address] [place] [phone] October, [facility] [address] [id number] [address] [place] [id number] 14 Sep, 2014 [facility] [address] [id number] [address] [place] [address], [place] [phone] 13 Sep, 2014 [facility] [address] [id number] [address] [place] [address], [place] [phone] 20 Aug, 2014 [facility] [address] [id number] [address] [place] [address], [place] [phone] 20 Aug, 2014 [facility] [address] [id number] [address] [place] [address], [place] [phone] 17 Aug, 2014 [facility] [address] [id number] [address] [place] [address], [place] [phone] 17 Aug, 2014 [facility] [address] [id number] [address] [place] [address], [place] [phone] 11 Aug, 2014 [facility] [address] [id number] [address] [place] [address], [place] [phone] 11 Aug, 2014 [facility] [address] [id number] [address] [place] [address], [place] [phone] 18 Jul, 2014 [facility] [address] [id number] [address] [place] [address], [place] [id number] 18 Jul, 2014 [facility] [address] [id number] [address] [place] [address], [place] [id number] 17 Jul, 2014 [facility] [address] [id number] [address] [place] [address], [place] [id number] 17 Jul, 2014 [facility] [address] [id number] [address] [place] [id number] 12 Jul, 2014 [facility] [address] [id number] [address] [place] [address], [place] [id number] 12 Jul, 2014 [facility] [address] [id number] [address] [place] [address], [place] [id number] 10 Jul, 2014 [facility] [address] [id number] [address] [place] [id number] 10 Jul2014 [facility] [address] [id number] [address] [place] [address], [place] [id number] Jul, 2014 [facility] [address] [id number] [address] [place] [address], [place] [id number] Jul, 2014 [facility] [address] [id number] [address] [place] [address], [place] [phone] Jul, 2014 [facility] [address] [id number] [address] [place] [address], [place] [id number] Jul, 2014 [facility] [address] [id number] [address] [place] [address], [place] [id number] Jul, [facility] [address] [id number] [address] [place] [address], [place] [id number] Jul, [facility] [address] [id number] [address] [place] [address], [place] [address] Jun, [facility] [address] [id number] [address] [place] [address], [place] [id number] Jun, [facility] [address] [id number] [address] [place] [address], [place] [address] Jun, [facility] [address] [id number] [address] [place] [id number] Jun, [facility] [address] [id number] [address] [place] [id number] Jun, [facility] [address] [id number] [address] [place] [id number] Jun, [facility] [address] [id number] [address] [place] [address], [place] [id number] Jun, [facility] [address] [id number] [address] [place] [address], [place] [address] Jun, [facility] [address] [id number] [address] [place] [id number] Jun, [facility] [address] [id number] [address] [place] [id number] Jun, [facility] [address] [id number] [address] [place] [address], [place] [id number] Jun, [facility] [address] [id number] [address] [place] [address], [place] [address] Jun, [facility] [address] [id number] [address] [place] [address], [place] [id number] Jun, [facility] [address] [id number] [address] [place] [address], [place] [id number] Jun, [facility] [address] [id number] [address] [place] [address], [place] [id number] May, [facility] [address] [id number] [address] [place] [address], [place] [address] May, [facility] [address] [id number] [address] [place] [address], [place] [id number] May, [facility] [address] [id number] [address] [place] [address], [place] [id number] May, [facility] [address] [id number] [address] [place] [address], [place] [id number] Apr, [facility] [address] [id number] [address] [place] [address], [place] [id number] Apr, [facility] [address] [id number] [address] [place] [address], [place] [id number] Apr, [facility] [address] [id number] [address] [place] [address], [place] [address] Apr, [facility] [address] [id number] [address] [place] [address], [place] [id number] Apr, [facility] [address] [id number] [address] [place] [address], [place] [id number] Apr, [facility] [address] [id number] [address] [place] [address], [place] [id number] 24 Mar, 2014 [facility] [address] [id number] [address] [place] [address], [place] [id number] 24 Mar, 2014 [facility] [address] [id number] [address] [place] [address], [place] [address] Mar, [facility] [address] [id number] [address] [place] [address], [place] [id number] 22 Mar, 2014 [facility] [address] [id number] [address] [place] [address], [place] [id number] 15 Mar, 2014 [facility] [address] [id number] [address] [place] [address], [place] [id number] 15 Mar, 2014 [facility] [address] [id number] [address] [place] [address], [place] [id number] Mar, [facility] [address] [id number] [address] [place] [address], [place] [address] 13 Mar, 2014 [facility] [address] [id number] [address] [place] [address], [place] [address] 07 Mar, 2013 [facility] [address] [id number] [address] [place] [address], [place] [id number] 07 Mar, 2014 [facility] [address] [id number] [address] [place] [address], [place] [address] 07 Mar, 2014 [facility] [address] [id number] [address] [place] [address], [place] [address] 07 Mar, 2014 [facility] [address] [id number] [address] [place] [address], [place] [address] 06 Mar, 2014 [facility] [address] [id number] [address] [place] [address], [place] [address] 26 Feb, 2013 [facility] [address] [id number] [address] [place] [address], [place] [address] 26 Feb, 2013 [facility] [address] [id number] [address] [place] [address], [place] [address] 23 Feb, 2013 [facility] [address] [id number] [address] [place] [address], [place] [address] 23 Feb, 2014 [facility] [address] [id number] [facility] [place] [address] 19 Feb, 2014 [facility] [address] [id number] [facility] [place] [address] 19 Feb, 2014 [facility] [address] [id number] [address] [place] [address], [place] [address] 13 Feb, 2014 [facility] [address] [id number] [address] [place] [address], [place] [id number] 13 Feb, 2014 [facility] [address] [id number] [address] [place] [address], [place] [address] Feb, [facility] [address] [id number] [address] [place] [address], [place] [address] Feb, [facility] [address] [id number] [address] [place] [address], [place] [address] Jan, [facility] [address] [id number] [address] [place] [address], [place] [address] Jan, [facility] [address] [id number] [address] [place] [address], [place] [address] Dec, [facility] [address] [id number] [address] [place] [address], [place] [address] Dec, [facility] [address] [id number] [address] [place] [address], [place] [address] Dec, [facility] [address] [id number] [address] [place] [address], [place] [address] Dec, [facility] [address] [id number] [address] [place] [address], [place] [address] Dec, [facility] [address] [id number] [address] [place] [address], [place] [address] Dec, [facility] [address] [id number] [address] [place] [address], [place] [address] 16 Nov, 2013 [facility] [address] [id number] [address] [place] [address], [place] [address] Nov, [facility] [address] [id number] [address] [place] [address], [place] [address] Nov, [facility] [address] [id number] [address] [place] [address], [place] [address] Nov, [facility] [address] [id number] [address] [place] [address], [place] [address] October, [facility] [address] [id number] [address] [place] [address], [place] [address] October, [facility] [address] [id number] [address] [place] [address], [place] [address] October, [facility] [address] [id number] [address] [place] [address], [place] [address] October, [facility] [address] [id number] [address] [place] [address], [place] [address] October, [facility] [address] [id number] [address] [place] [address], [place] [address] October, [facility] [address] [id number] [address] [place] [address], [place] [address] October, [facility] [address] [id number] [address] [place] [address], [place] [address] October, [facility] [address] [id number] [address] [place] [address], [place] [address] October, [facility] [address] [id number] [address] [place] [address], [place] [address] October, [facility] [address] [id number] [address] [place] [address], [place] [address] October, [facility] [address] [id number] [address] [place] [address], [place] [address] October, [facility] [address] [id number] [address] [place] [address], [place] [address] October, [facility] [address] [id number] [address] [place] [address], [place] [address] October, [facility] [address] [id number] [address] [place] [address], [place] [address] October, [facility] [address] [id number] [address] [place] [address], [place] [address] October, [facility] [address] [id number] [address] [place] [address], [place] [address] Sep, [facility] [address] [id number] [address] [place] [address], [place] [address] Sep, [facility] [address] [id number] [address] [place] [address], [place] [address] Sep, [facility] [address] [id number] [address] [place] [address], [place] [address] Sep, [facility] [address] [id number] [address] [place] [address], [place] [address] Sep, [facility] [address] [id number] [address] [place] [address], [place] [address] Sep, [facility] [address] [id number] [address] [place] [address], [place] [address] Aug, [facility] [address] [id number] [address] [place] [address], [place] [address] Aug, [facility] [address] [id number] [address] [place] [address], [place] [address] Aug, [facility] [address] [id number] [address] [place] [address], [place] [address] Aug, [facility] [address] [id number] [address] [place] [address], [place] [address] Aug, [facility] [address] [id number] [address] [place] [address], [place] [address] Aug, [facility] [address] [id number] [address] [place] [address], [place] [address] Jul, [facility] [address] [id number] [address] [place] [address], [place] [address] Jul, [facility] [address] [id number] [address] [place] [address], [place] [address] Jul, [facility] [address] [id number] [address] [place] [address], [place] [address] Jul, [facility] [address] [id number] [address] [place] [address], [place] [address] Jun, [facility] [address] [id number] [address] [place] [address], [place] [address] Jun, [facility] [address] [id number] [address] [place] [address], [place] [address] May, [facility] [address] [id number] [address] [place] [address], [place] [address] May, [facility] [address] [id number] [address] [place] [address], [place] [address] May, [facility] [address] [id number] [address] [place] [address], [place] [address] May, [facility] [address] [id number] [address] [place] [address], [place] [address] May, [facility] [address] [id number] [address] [place] [address], [place] [address] Apr, [facility] [address] [id number] [address] [place] [id number] Apr, [facility] [address] [id number] [address] [place] [address], [place] [address] Apr, [facility] [address] [id number] [address] [place] [address], [place] [address] Apr, [facility] [address] [id number] [address] [place] [address], [place] [address] Apr, [facility] [address] [id number] [address] [place] [address], [place] [address] 04 Apr, 2013 [facility] [address] [id number] [address] [place] [address], [place] [address] 15 Mar, 2013 [facility] [address] [id number] [address] [place] [address], [place] [address] 15 Mar, 2013 [facility] [address] [id number] [address] [place] [address], [place] [address] 14 Mar, 2013 [facility] [address] [id number] [address] [place] [address], [place] [address] 14 Mar, 2013 [facility] [address] [id number] [address] [place] [address], [place] [address] Mar, [facility] [address] [id number] [address] [place] [address], [place] [address] Mar, [facility] [address] [id number] [address] [place] [address], [place] [address] 23 Feb, 2013 [facility] [address] [id number] [address] [place] [address], [place] [address] 19 Feb, 2013 [facility] [address] [id number] [address] [place] [address], [place] [address] 04 Feb, 2013 [facility] [address] [id number] [address] [place] [address], [place] [address] 30 Jan, 2013 [facility] [address] [id number] [address] [place] [address], [place] [address] Jan, [facility] [address] [id number] [address] [place] [address], [place] [address] Jan, [facility] [address] [id number] [address] [place] [address], [place] [address] Jan, [facility] [address] [id number] [address] [place] [address], [place] [address] Jan, [facility] [address] [id number] [address] [place] [address] [address] Jan, [facility] [address] [id number] [address] [place] [address], [place] [address] Dec, [facility] [address] [id number] [address] [place] [address], [place] [address] Dec, [facility] [address] [id number] [address] [place] [address], [place] [address] Dec, [facility] [address] [id number] [address] [place] [address], [place] [address] Dec, [facility] [address] [id number] [address] [place] [address], [place] [address] Dec, [facility] [address] [id number] [address] [place] [address], [place] [address] Dec, [facility] [address] [id number] [address] [place] [address], [place] [address] Nov, [facility] [address] [id number] [address] [place] [address], [place] [address] Nov, [facility] [address] [id number] [address] [place] [address], [place] [address] Nov, [facility] [address] [id number] [address] [place] [address], [place] [address] Nov, [facility] [address] [id number] [address] [place] [address], [place] [address] Nov, [facility] [address] [id number] [address] [place] [address], [place] [address] Nov, [facility] [address] [id number] [address] [place] [address], [place] [address] October, [facility] [address] [id number] [address] [place] [address], [place] [address] October, [facility] [address] [id number] [address] [place] [address], [place] [address] October, [facility] [address] [id number] [address] [place] [address], [place] [address] 15 Oct, 2012 [facility] [address] [id number] [address] [place] [address], [place] [address] October, [facility] [address] [id number] [address] [place] [address], [place] [address] Sep, [facility] [address] [id number] [address] [place] [address], [place] [address] Sep, [facility] [address] [id number] [address] [place] [address], [place] [address] Sep, [facility] [address] [id number] [address] [place] [address], [place] [address] Sep, [facility] [address] [id number] [address] [place] [address], [place] [address] Sep, [facility] [address] [id number] [address] [place] [address], [place] [address] Aug, [facility] [address] [id number] [address] [place] [address], [place] [address] 07 Aug, 2012 [facility] [address] [id number] [address] [place] [address], [place] [address] 04 Aug, 2012 [facility] [address] [id number] [address] [place] [address], [place] [address] Jul, [facility] [address] [id number] [address] [place] [address], [place] [address] 20 Jul, 2012 [facility] [address] [id number] [address] [place] [address], [place] [address] 11 Jul, 2012 [facility] [address] [id number] [address] [place] [address], [place] [address] 08 Jul, 2012 [facility] [address] [id number] [address] [place] [address], [place] [address] 06 Jul, 2012 [facility] [address] [id number] [address] [place] [address], [place] [address] Jul, [facility] [address] [id number] [address] [place] [address], [place] [address] Jun, [facility] [address] [id number] [address] [place] [address], [place] [address] Apr, [facility] [address] [id number] [address] [place] [address], [place] [address] Apr, [facility] [address] [id number] [address] [place] [address], [place] [address] Apr, [facility] [address] [id number] [address] [place] [address], [place] [address] Apr, [facility] [address] [id number] [address] [place] [address], [place] [address] Mar, [facility] [address] [id number] [address] [place] [address], [place] [address] Mar, [facility] [address] [id number] [address] [place] [address], [place] [address] Mar, [facility] [address] [id number] [address] [place] [address], [place] [address] Mar, [facility] [address] [id number] [address] [place] [address], [place] [address] Mar, [facility] [address] [id number] [address] [place] [address], [place] [address] Feb, [facility] [address] [id number] [address] [place] [id number] Jan, [facility] [address] [id number] [address] [place] [address], [place] [address] Jan, [facility] [address] [id number] [address] [place] [address], [place] [address] Jan, [facility] [address] [id number] [address] [place] [address], [place] [address] Dec, [facility] [address] [id number] [address] [place] [id number] 25 Nov, 2011 [facility] [address] [id number] [address] [place] [id number] Nov, [facility] [address] [id number] [address] [place] [id number] Nov, [facility] [address] [id number] [address] [place] [id number] Nov, [facility] [address] [id number] [address] [place] [id number] Nov, [facility] [address] [id number] [address] [place] [id number] October, [facility] [address] [id number] [address] [place] [id number] October, [facility] [address] [id number] [address] [place] [id number] October, [facility] [address] [id number] [address] [place] [id number] October, [facility] [address] [id number] [address] [place] [id number] October, IMMUNIZATIONS No Known Immunizations SOCIAL HISTORY Never Assessed REASON FOR VISIT Controlled Med Refill PLAN OF CARE VITAL SIGNS MEDICATIONS Medication Instructions Dosage Frequency Start Date End Date Duration S tatus Zolpidem Tartrate 10 MG Orally Once a [...]
--- OUTSIDE RECORDS SUMMARY | 2020-01-25 08:24 | XMS REPORT ---
Author Author Velma CORDERO Organization [facility] [place] Address [address] [place] [address] Care Team Providers Care Dredge Master Name Role Phone STEPHAN CORDERO Unavailable PROBLEMS Type Condition ICD9-CM Code LXW07-CD Code Onset Dates Condition S tatus SNOMED Code Problem Hypercholesteremia E78.0 Active 1 0348696 Problem Arthritis M19.90 Active 6452608 Problem Hyperparathyroidism E21.3 Active 09649165 Problem Primary insomnia F51.01 Active 397 2004 Problem Myalgia M79.1 Active 87083515 Problem Chronic kidney disease, stage 4 (severe) N18.4 Active 737547533 Problem BPV (benign positional vertigo), bilateral H81.13 Active 526851439 Problem Corns L84 Active 193455173 Problem Mood disorder F39 Active 155942 05 Problem 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 Active 08748448 Problem 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 Active 26156411 ALLERGIES No Information ENCOUNTERS Encounter Location Date Diagnosis [facility] [place] [address] [id number] [address] [place] [id number] Sep, Labyrinthitis of left ear H8 3.02 and Arthritis M19.90 [facility] [place] [address] [id number] [address] [place] [phone] Sep, [facility] [place] [address] [facility] [id number] [address] [place] [phone] Sep, [facility] [place] [id number] [place] [phone] Sep, Chronic kidney disease, stag e 4 (severe) N18.4 [facility] [place] [address] [id number] [address] [place] [phone] Sep, Chronic kidney disease, stag e 4 (severe) N18.4 [facility] [place] [address] [id number] [address] [place] [id number] Aug, Labyrinthitis of left ear H8 3.02 and Arthritis M19.90 [facility] [place] [address] [id number] [address] [place] [phone] Aug, [facility] [place] [address] [id number] [address] [place] [id number] Jul, [facility] [place] [address] [facility] [id number] [address] [place] [id number] Jul, Arthritis M19.90 and Labyrin thitis of left ear H83.02 [facility] [place] [address] [facility] [id number] [address] [place] [id number] Jul, [facility] [place] [address] [facility] [id number] [address] [place] [phone] Jun, [facility] [place] [address] [facility] [id number] [address] [place] [id number] Jun, Arthritis M19.90 and Labyrin thitis of left ear H83.02 [facility] [place] [address] [facility] [id number] [address] [place] [id number] Jun, Pre-op evaluation Z01.818 ; BMI 40.0-44.9, adult Z68.41 and Encounter for immunization Z23 [facility] [place] [address] [facility] [id number] [address] [place] [id number] May, Arthritis M19.90 and Labyrin thitis of left ear H83.02 [facility] [place] [address] [facility] [id number] [address] [place] [id number] Apr, Labyrinthitis of left ear H8 3.02 [facility] [place] [address] [facility] [id number] [address] [place] [id number] Apr, Arthritis M19.90 and Labyrin thitis of left ear H83.02 [facility] [place] [address] [facility] [id number] [address] [place] [id number] 10 Mar, 2017 Arthritis M19.90 and Labyrin thitis of left ear H83.02 [facility] [place] [address] [id number] [address] [place] [id number] 05 Mar, 2017 Chronic kidney disease, stag e 4 (severe) N18.4 [facility] [place] [address] [facility] [id number] [address] [place] [id number] 06 Feb, 2017 Arthritis M19.90 and Labyrin thitis of left ear H83.02 [place] [address] [facility] [id number] [address] [place] [id number] 10 Jan, 2017 Labyrinthitis of left ear H8 3.02 and 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 [place] [address] [place] [id number] [address] [place] [id number] Dec, Arthritis M19.90 [place] [address] [place] [id number] [address] [place] [phone] Dec, BPV (benign positional verti go), bilateral H81.13 [place] [address] [place] [id number] [address] [place] [phone] Dec, [place] [address] [place] [id number] [address] [place] [phone] Dec, [place] [address] [id number] [address] [place] [phone] Dec, [place] [address] [place] [id number] [address] [place] [id number] Nov, Arthritis M19.90 and Deficie ncy of other specified B group vitamins E53.8 [place] [address] [facility] [id number] [address] [place] [phone] Nov, Arthritis M19.90 [place] [address] [place] [id number] [address] [place] [id number] Nov, Hyperparathyroidism E21.3 [place] [address] [place] [id number] [address] [place] [phone] October, [facility] [place] [address] [facility] [id number] [address] [place] [phone] October, Hyperparathyroidism E21.3 [facility] [place] [address] [facility] [id number] [address] [place] [phone] October, [facility] [place] [address] [facility] [id number] [address] [place] [id number] October, Renal insufficiency N28.9 an d Hyperparathyroidism E21.3 [facility] [place] [address] [facility] [id number] [address] [place] [id number] October, [facility] [place] [address] [facility] [id number] [address] [place] [phone] October, Renal insufficiency N28.9 an d Hyperparathyroidism E21.3 [facility] [place] [address] [facility] [id number] [address] [place] [id number] October, Arthritis M19.90 [facility] [place] [address] [facility] [id number] [address] [place] [id number] Sep, [facility] [place] [address] [id number] [address] [place] [phone] Sep, Lumbar neuritis M54.16 ; Tho racic abscess J86.9 and Deficiency of other specified B group vitamins E53.8 [facility] [place] [address] [facility] [id number] [address] [place] [id number] Sep, [facility] [place] [address] [facility] [id number] [address] [place] [id number] Aug, Arthritis M19.90 [facility] [place] [address] [facility] [id number] [address] [place] [id number] Aug, Hyperparathyroidism E21.3 [facility] [place] [address] [facility] [id number] [address] [place] [phone] Aug, Hyperparathyroidism E21.3 [facility] [place] [address] [id number] [address] [place] [id number] Aug, Arthritis M19.90 [facility] [place] [address] [facility] [id number] [address] [place] [phone] Jul, Mass of throat R22.1 [facility] [place] [address] [facility] [id number] [address] [place] [id number] Jul, [facility] [place] [address] [facility] [id number] [address] [place] [phone] Jul, Arthritis M19.90 [facility] [place] [address] [facility] [id number] [address] [place] [id number] Jun, Arthritis M19.90 [facility] [place] [address] [facility] [id number] [address] [place] [id number] Jun, [facility] [place] [address] [id number] [address] [place] [phone] Jun, Renal insufficiency N28.9 an d 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 [facility] [place] [address] [facility] [id number] [address] [place] [phone] Jun, Encounter for immunization Z 23 ; Medicare welcome exam Z00.00 ; Arthritis M19.90 ; Medicare annual wellness visit, initial Z00.00 ; Medicare annual wellness visit, subsequent Z00.00 and 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 [facility] [place] [address] [facility] [id number] [address] [place] [id number] May, Renal insufficiency N28.9 an d Parathyroid abnormality E21.5 [facility] [place] [address] [facility] [id number] [address] [place] [phone] May, Renal insufficiency N28.9 [facility] [place] [address] [facility] [id number] [address] [place] [phone] May, Renal insufficiency N28.9 [facility] [place] [address] [facility] [id number] [address] [place] [id number] May, [facility] [place] [address] [id number] [address] [place] [id number] 16 Apr, 2016 [facility] [place] [address] [id number] [address] [place] [id number] 16 Apr, 2016 [facility] [place] [address] [id number] [address] [place] [phone] 14 Apr, 2016 Mass of throat R22.1 [facility] [place] [address] [id number] [address] [place] [id number] 10 Apr, 2016 [facility] [place] [address] [id number] [address] [place] [id number] 10 Apr, 2016 Mass of throat R22.1 [facility] [place] [address] [id number] [address] [place] [phone] 04 Apr, 2016 Mass of throat R22.1 [facility] [place] [address] [facility] [id number] [address] [place] [id number] Mar, [facility] [place] [address] [id number] [address] [place] [phone] Mar, [facility] [place] [address] [facility] [id number] [address] [place] [id number] Mar, [facility] [place] [address] [facility] [id number] [address] [place] [id number] 24 Mar, 2016 Parathyroid abnormality E21. 5 and Encounter for immunization Z23 [facility] [place] [address] [facility] [id number] [address] [place] [id number] 17 Mar, 2016 [facility] [place] [address] [facility] [id number] [address] [place] [id number] Mar, [facility] [place] [address] [facility] [id number] [address] [place] [id number] 21 Feb, 2016 Renal insufficiency N28.9 an d Hyperparathyroidism E21.3 [facility] [place] [address] [facility] [id number] [address] [place] [id number] 19 Feb, 2016 [facility] [place] [address] [facility] [id number] [address] [place] [id number] 15 Feb, 2016 Renal insufficiency N28.9 an d Hyperparathyroidism E21.3 [place] [address] [place] [id number] [place] [phone] 14 Feb, 2016 [facility] [place] [id number] [place] [phone] 12 Feb, 2016 [place] [address] [id number] Feb, [place] [address] [place] [id number] [place] [phone] Jan, [place] [address] [address] Jan, Arthritis M19.90 ; Lumbago w ith sciatica, right side M54.41 and Other chronic pain G89.29 [place] [address] [address] Jan, [place] [address] [address] Dec, Arthritis M19.90 ; Lumbago w ith sciatica, right side M54.41 and Other chronic pain G89.29 [place] [address] [address] 16 Nov, 2015 Deficiency of other specifie d B group vitamins E53.8 ; Primary insomnia F51.01 ; Mood disorder F39 and Lumbago with sciatica, right side M54.41 [place] [address] [place] [id number] [address] [place] [phone] Nov, Hyperparathyroidism E21.3 [place] [address] [place] [id number] [place] [phone] Nov, Unspecified kidney failure N 19 and Hyperparathyroidism E21.3 [place] [address] [place] [id number] [address] [place] [phone] October, Hyperparathyroidism E21.3 [facility] [place] [address] [facility] [id number] [address] [place] [id number] October, [facility] [place] [address] [address] October, Hyperparathyroidism E21.3 [facility] [place] [address] [address] October, Hyperparathyroidism E21.3 [facility] [place] [address] [id number] Sep, Hyperparathyroidism E21.3 ; Hypercholesterolemia E78.0 and Arthritis M19.90 [facility] [place] [address] [address] Aug, [facility] [place] [address] [address] Aug, Deficiency of other specifie d B group vitamins E53.8 [facility] [place] [address] [address] Aug, [facility] [place] [address] [id number] Jul, Urinary frequency R35.0 [facility] [place] [address] [id number] Jul, Urinary frequency R35.0 [facility] [place] [address] [address] Jul, [facility] [place] [address] [address] Jul, [facility] [place] [address] [address] Jun, Pain in left knee M25.562 [facility] [place] [address] [id number] [address] [place] [id number] Jun, [facility] [place] [address] [address] May, Swelling of left knee joint M25.462 [facility] [place] [address] [id number] [address] [place] [id number] May, [facility] [place] [address] [id number] [address] [place] [id number] May, [facility] [place] [address] [facility] [id number] [address] [place] [id number] May, [facility] [place] [address] [facility] [id number] [address] [place] [id number] Apr, Renal insufficiency N28.9 an d Chronic kidney disease, stage 4 (severe) N18.4 [facility] [place] [address] [facility] [id number] [address] [place] [id number] Apr, Unspecified kidney failure N 19 [facility] [place] [address] [facility] [id number] [address] [place] [id number] Apr, Unspecified kidney failure N 19 [facility] [place] [address] [id number] [address] [place] [id number] Apr, [facility] [place] [address] [facility] [id number] [address] [place] [id number] Apr, Hyperparathyroidism, unspeci fied 252.00 [facility] [place] [address] [facility] [id number] [address] [place] [id number] Apr, [facility] [place] [address] [facility] [id number] [address] [place] [id number] Mar, [facility] [place] [address] [id number] [address] [place] [id number] Mar, [facility] [place] [address] [facility] [id number] [address] [place] [id number] Mar, Hyperparathyroidism, unspeci fied 252.00 [facility] [place] [address] [facility] [id number] [address] [place] [id number] Feb, [facility] [place] [address] [facility] [id number] [address] [place] [id number] Feb, Otalgia 388.70 [facility] [place] [address] [facility] [id number] [address] [place] [id number] Feb, [facility] [place] [address] [facility] [id number] [address] [place] [id number] Feb, [facility] [place] [address] [facility] [id number] [address] [place] [id number] Jan, [facility] [place] [address] [facility] [id number] [address] [place] [id number] Jan, Hyperparathyroidism, unspeci fied 252.00 [facility] [place] [address] [facility] [id number] [address] [place] [id number] Jan, [facility] [place] [address] [place] [id number] [address] [place] [id number] Jan, Other B-complex deficiencies 266.2 and Hyperparathyroidism, unspecified 252.00 [facility] [place] [address] [facility] [id number] [address] [place] [id number] Jan, [facility] [place] [address] [facility] [id number] [address] [place] [id number] Jan, [facility] [place] [address] [facility] [id number] [address] [place] [id number] Jan, [facility] [place] [address] [facility] [id number] [address] [place] [id number] Dec, [facility] [place] [address] [facility] [id number] [address] [place] [id number] Dec, [facility] [place] [address] [facility] [id number] [address] [place] [id number] Dec, [facility] [place] [address] [facility] [id number] [address] [place] [id number] Nov, Routine check-up V70.0 and P re-op exam V72.84 [facility] [place] [address] [id number] [address] [place] [address], [place] [address] Nov, [facility] [address] [id number] [address] [place] [address], [place] [address] Nov, [facility] [address] [id number] [address] [place] [address], [place] [address] October, [facility] [address] [id number] [address] [place] [address], [place] [address] October, Other B-complex deficiencies 266.2 [facility] [address] [id number] [address] [place] [address], [place] [address] October, [facility] [address] [id number] [address] [place] [address], [place] [address] Sep, [facility] [address] [id number] [address] [place] [address], [place] [address] Sep, [facility] [address] [id number] [address] [place] [address], [place] [address] Aug, [facility] [address] [id number] [address] [place] [address], [place] [address] Aug, [facility] [address] [id number] [address] [place] [address], [place] [address] 17 Aug, 2014 [facility] [address] [id number] [address] [place] [address], [place] [id number] 17 Aug, 2014 [facility] [address] [id number] [address] [place] [address], [place] [address] Aug, [facility] [address] [id number] [address] [place] [address], [place] [address] Aug, [facility] [address] [id number] [address] [place] [address], [place] [address] 18 Jul, 2014 [facility] [facility] [address] [id number] [address] [place] [address], [place] [address] 18 Jul, 2014 [facility] [address] [id number] [address] [place] [address] Jul, 2014 [facility] [address] [id number] [address] [place] [address], [place] [address] Jul, 2014 [facility] [address] [id number] [address] [place] [address], [place] [address] Jul, 2014 [facility] [address] [id number] [address] [place] [address], [place] [address] Jul, 2014 [facility] [address] [id number] [address] [place] [address], [place] [address] Jul, 2014 [facility] [address] [id number] [address] [place] [address], [place] [address] Jul, 2014 [facility] [address] [id number] [address] [place] [address], [place] [address] Jul, 2014 [facility] [address] [id number] [address] [place] [address], [place] [address] Jul, 2014 [facility] [address] [id number] [address] [place] [address], [place] [address] Jul, 2014 [facility] [address] [id number] [address] [place] [address], [place] [address] Jul, 2014 [facility] [address] [id number] [address] [place] [address], [place] [address] Jul, [facility] [address] [id number] [address] [place] [address], [place] [address] Jul, 2014 [facility] [address] [id number] [address] [place] [address], [place] [address] Jun, [facility] [address] [id number] [address] [place] [address], [place] [address] Jun, [facility] [address] [id number] [address] [place] [address], [place] [address] Jun, [facility] [address] [id number] [address] [place] [address], [place] [address] Jun, [facility] [address] [id number] [address] [place] [address], [place] [address] Jun, [facility] [address] [id number] [address] [place] [address], [place] [address] Jun, [facility] [address] [id number] [address] [place] [address], [place] [address] Jun, [facility] [address] [id number] [address] [place] [address], [place] [address] Jun, [facility] [address] [id number] [address] [place] [address], [place] [address] Jun, [facility] [address] [id number] [address] [place] [address], [place] [address] Jun, [facility] [address] [id number] [address] [place] [address], [place] [address] Jun, [facility] [address] [id number] [address] [place] [address], [place] [address] Jun, [facility] [address] [id number] [address] [place] [address], [place] [address] Jun, [facility] [address] [id number] [address] [place] [address], [place] [address] Jun, [facility] [address] [id number] [address] [place] [address], [place] [address] May, [facility] [address] [id number] [address] [place] [address], [place] [address] May, [facility] [address] [id number] [address] [place] [address], [place] [address] May, [facility] [address] [id number] [address] [place] [address], [place] [address] May, [facility] [address] [id number] [address] [place] [address], [place] [address] Apr, [facility] [address] [id number] [address] [place] [address], [place] [address] Apr, [facility] [address] [id number] [address] [place] [address], [place] [address] Apr, [facility] [address] [id number] [address] [place] [address], [place] [address] Apr, [facility] [address] [id number] [address] [place] [address], [place] [address] Apr, [facility] [address] [id number] [address] [place] [address] Apr, [facility] [address] [id number] [address] [place] [address], [place] [address] Mar, [facility] [address] [id number] [address] [place] [address], [place] [address] Mar, [facility] [address] [id number] [address] [place] [address], [place] [address] Mar, [facility] [address] [id number] [address] [place] [address], [place] [address] Mar, [facility] [address] [id number] [address] [place] [address], [place] [address] Mar, [facility] [address] [id number] [address] [place] [address] Mar, [facility] [address] [id number] [address] [place] [address] Mar, [facility] [address] [id number] [address] [place] [address] Mar, [facility] [address] [id number] [address] [place] [address], [place] [address] Mar, [facility] [address] [id number] [address] [place] [address] Mar, [facility] [address] [id number] [address] [place] [address], [place] [address] Mar, [facility] [address] [id number] [address] [place] [address], [place] [address] Mar, [facility] [address] [id number] [address] [place] [address], [place] [address] Mar, [facility] [address] [id number] [address] [place] [address], [place] [address] 26 Feb, 2014 [facility] [address] [id number] [address] [place] [address], [place] [address] Feb, 2013 [facility] [address] [id number] [address] [place] [address], [place] [address] 23 Feb, 2013 [facility] [address] [id number] [address] [place] [address], [place] [address] 23 Feb, 2014 [facility] [address] [id number] [address] [place] [address], [place] [address] 19 Feb, 2014 [facility] [address] [id number] [address] [place] [address], [place] [address] 19 Feb, 2013 [facility] [address] [id number] [address] [place] [address], [place] [address] 13 Feb, 2014 [facility] [address] [id number] [address] [place] [address], [place] [address] 13 Feb, 2014 [facility] [address] [id number] [address] [place] [address], [place] [address] 12 Feb, 2014 [facility] [address] [id number] [address] [place] [address], [place] [address] Feb, [facility] [address] [id number] [address] [place] [address], [place] [address] Jan, [facility] [address] [id number] [address] [place] [address], [place] [address] Jan, [facility] [address] [id number] [address] [place] [address], [place] [address] Dec, [facility] [address] [id number] [address] [place] [address], [place] [address] Dec, [facility] [address] [id number] [facility] [place] [address] Dec, [facility] [address] [id number] [address] [place] [address], [place] [address] Dec, [facility] [address] [id number] [address] [place] [address], [place] [address] Dec, [facility] [address] [id number] [address] [place] [address], [place] [address] Dec, [facility] [address] [id number] [address] [place] [address], [place] [address] Nov, [facility] [address] [id number] [address] [place] [address], [place] [address] Nov, [facility] [address] [id number] [address] [place] [address], [place] [address] Nov, [facility] [address] [id number] [address] [place] [address], [place] [address] Nov, [facility] [address] [id number] [address] [place] [address], [place] [address] October, [facility] [address] [id number] [address] [place] [address], [place] [address] October, [facility] [address] [id number] [address] [place] [address], [place] [address] October, [facility] [address] [id number] [address] [place] [address], [place] [address] October, [facility] [address] [id number] [address] [place] [address], [place] [address] October, [facility] [address] [id number] [address] [place] [address], [place] [address] October, [facility] [address] [id number] [address] [place] [address], [place] [address] October, [facility] [address] [id number] [address] [place] [address], [place] [address] October, [facility] [address] [id number] [address] [place] [address], [place] [address] October, [facility] [address] [id number] [address] [place] [address], [place] [address] October, [facility] [address] [id number] [address] [place] [address], [place] [address] October, [facility] [address] [id number] [address] [place] [address], [place] [address] October, [facility] [address] [id number] [address] [place] [address], [place] [address] October, [facility] [address] [id number] [address] [place] [address], [place] [address] October, [facility] [address] [id number] [address] [place] [address], [place] [address] October, [facility] [address] [id number] [address] [place] [address], [place] [address] October, [facility] [address] [id number] [address] [place] [address], [place] [address] Sep, [facility] [address] [id number] [address] [place] [address], [place] [address] Sep, [facility] [address] [id number] [address] [place] [address], [place] [address] Sep, [facility] [address] [id number] [address] [place] [address], [place] [address] Sep, [facility] [address] [id number] [address] [place] [address], [place] [address] Sep, [facility] [address] [id number] [address] [place] [address], [place] [address] Sep, [facility] [address] [id number] [address] [place] [address], [place] [address] Aug, [facility] [address] [id number] [facility] [place] [address] Aug, [facility] [address] [id number] [facility] [place] [address] Aug, [facility] [address] [id number] [facility] [place] [address] Aug, [facility] [address] [id number] [address] [place] [address], [place] [address] Aug, [facility] [address] [id number] [address] [place] [address], [place] [address] Aug, [facility] [address] [id number] [address] [place] [address], [place] [address] Jul, [facility] [address] [id number] [address] [place] [address], [place] [address] Jul, [facility] [address] [id number] [address] [place] [address], [place] [address] Jul, [facility] [address] [id number] [address] [place] [address], [place] [address] Jul, [facility] [address] [id number] [address] [place] [address], [place] [address] Jun, [facility] [address] [id number] [address] [place] [address], [place] [address] Jun, [facility] [address] [id number] [address] [place] [address], [place] [address] May, [facility] [address] [id number] [address] [place] [address], [place] [address] May, [facility] [address] [id number] [address] [place] [address], [place] [address] May, [facility] [address] [id number] [address] [place] [address], [place] [address] May, [facility] [address] [id number] [address] [place] [address] May, [facility] [address] [id number] [address] [place] [address], [place] [address] Apr, [facility] [address] [id number] [address] [place] [address] Apr, [facility] [address] [id number] [address] [place] [address] Apr, [facility] [address] [id number] [address] [place] [address] Apr, [facility] [address] [id number] [address] [place] [address], [place] [address] Apr, [facility] [address] [id number] [address] [place] [address] Apr, [facility] [address] [id number] [address] [place] [address] 15 Mar, 2013 [facility] [address] [id number] [address] [place] [address] 15 Mar, 2013 [facility] [address] [id number] [address] [place] [address] 14 Mar, 2013 [facility] [address] [id number] [address] [place] [address] 14 Mar, 2013 [facility] [address] [id number] [address] [place] [address] 11 Mar, 2013 [facility] [address] [id number] [address] [place] [address] 11 Mar, 2013 [facility] [address] [id number] [address] [place] [address], [place] [address] 23 Feb, 2013 [facility] [address] [id number] [address] [place] [address] 19 Feb, 2013 [facility] [address] [id number] [address] [place] [address] 04 Feb, 2013 [facility] [address] [id number] [address] [place] [address], [place] [address] Jan, [facility] [address] [id number] [address] [place] [address], [place] [address] Jan, [facility] [address] [id number] [address] [place] [address], [place] [address] Jan, [facility] [address] [id number] [address] [place] [address], [place] [address] Jan, [facility] [address] [id number] [address] [place] [address], [place] [address] Jan, [facility] [address] [id number] [address] [place] [address], [place] [address] Jan, [facility] [address] [id number] [address] [place] [address], [place] [address] Dec, [facility] [address] [id number] [address] [place] [address], [place] [address] Dec, [facility] [address] [id number] [address] [place] [address], [place] [address] Dec, [facility] [address] [id number] [address] [place] [address], [place] [address] Dec, [facility] [address] [id number] [address] [place] [address], [place] [address] Dec, [facility] [address] [id number] [address] [place] [address], [place] [address] Dec, [facility] [address] [id number] [address] [place] [address], [place] [address] Nov, [facility] [address] [id number] [address] [place] [address], [place] [address] Nov, [facility] [address] [id number] [address] [place] [address], [place] [address] Nov, [facility] [address] [id number] [address] [place] [address], [place] [address] Nov, [facility] [address] [id number] [address] [place] [address], [place] [address] Nov, [facility] [address] [id number] [address] [place] [address], [place] [address] Nov, [facility] [address] [id number] [address] [place] [address], [place] [address] October, [facility] [address] [id number] [address] [place] [address], [place] [address] October, [facility] [address] [id number] [address] [place] [address], [place] [address] October, [facility] [address] [id number] [address] [place] [address], [place] [address] October, [facility] [address] [id number] [address] [place] [address], [place] [address] October, [facility] [address] [id number] [address] [place] [address], [place] [address] Sep, [facility] [address] [id number] [address] [place] [address], [place] [address] Sep, [facility] [address] [id number] [address] [place] [address], [place] [address] Sep, [facility] [address] [id number] [address] [place] [address], [place] [address] Sep, [facility] [address] [id number] [address] [place] [address], [place] [address] Sep, [facility] [address] [id number] [address] [place] [address], [place] [address] Aug, [facility] [address] [id number] [address] [place] [address], [place] [address] 07 Aug, 2012 [facility] [address] [id number] [address] [place] [address], [place] [address] Aug, [facility] [address] [id number] [address] [place] [id number] Jul, 2012 [facility] [address] [id number] [address] [place] [address], [place] [address] Jul, 2012 [facility] [address] [id number] [address] [place] [address], [place] [address] Jul, 2012 [facility] [address] [id number] [address] [place] [address], [place] [address] 08 Jul, 2012 [facility] [address] [id number] [address] [place] [address], [place] [address] 06 Jul, 2012 [facility] [address] [id number] [address] [place] [address], [place] [address] 05 Jul, 2012 [facility] [address] [id number] [address] [place] [address], [place] [address] Jun, [facility] [address] [id number] [address] [place] [address], [place] [address] Apr, [facility] [address] [id number] [address] [place] [address], [place] [address] Apr, [facility] [address] [id number] [address] [place] [address], [place] [address] Apr, [facility] [address] [id number] [address] [place] [address], [place] [address] Apr, [facility] [address] [id number] [address] [place] [address], [place] [address] Mar, [facility] [address] [id number] [address] [place] [address], [place] [address] Mar, [facility] [address] [id number] [address] [place] [address], [place] [address] Mar, [facility] [address] [id number] [address] [place] [address], [place] [address] Mar, [facility] [address] [id number] [address] [place] [address], [place] [address] Mar, [facility] [place] [address] [id number] [address] [place] [id number] Feb, [facility] [place] [address] [id number] [address] [place] [id number] Jan, [facility] [place] [address] [id number] [address] [place] [phone] Jan, [facility] [place] [address] [id number] [address] [place] [id number] Jan, [facility] [place] [address] [id number] [address] [place] [id number] Dec, [facility] [place] [address] [id number] [address] [place] [id number] Nov, [facility] [place] [address] [id number] [address] [place] [id number] Nov, [facility] [place] [address] [id number] [address] [place] [phone] Nov, [facility] [place] [address] [id number] [address] [place] [id number] Nov, [facility] [place] [address] [id number] [address] [place] [id number] Nov, [facility] [place] [address] [id number] [address] [place] [id number] October, [facility] [place] [address] [id number] [address] [place] [id number] October, [facility] [place] [address] [id number] [address] [place] [id number] October, [facility] [place] [address] [id number] [address] [place] [id number] October, [facility] [place] [address] [id number] [address] [place] [id number] October, IMMUNIZATIONS No Known Immunizations SOCIAL HISTORY Never Assessed REASON FOR VISIT Controlled Refill Request PLAN OF CARE VITAL SIGNS MEDICATIONS Medication Instructions Dosage Frequency Start Date End Date Duration S tatus Zolpidem Tartrate 10 mg Orally Once a day 1 tablet at bedtime 24h 28 days Active Hydrocodone-Acetaminophen 10-325 MG Orally 3 times a day 1 tablet a s needed 8h 07 Feb, 2017 28 days Active RESULTS No Results PROCEDURES [...]
--- OUTSIDE RECORDS SUMMARY | 2020-01-25 08:25 | XMS REPORT ---
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 Name Role Phone STEPHAN CORDERO Unavailable PROBLEMS Type Condition ICD9-CM Code ZDP18-GB Code Onset Dates Condition S tatus SNOMED Code Problem Hypercholesteremia E78.0 Active 1 4581007 Problem Arthritis M19.90 Active 2071140 Problem Hyperparathyroidism E21.3 Active 20256958 Problem Primary insomnia F51.01 Active 397 2004 Problem Myalgia M79.1 Active 99526602 Problem Chronic kidney disease, stage 4 (severe) N18.4 Active 678078768 Problem BPV (benign positional vertigo), bilateral H81.13 Active 365039311 Problem Corns L84 Active 893747751 Problem Mood disorder F39 Active 276916 05 Problem 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 Active 69125060 Problem 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 Active 62526855 ALLERGIES No Information ENCOUNTERS Encounter Location Date Diagnosis [facility] [place] [id number] [address] [place] [id number] Sep, BPV (benign positional verti go), bilateral H81.13 ; Dysfunction of left eustachian tube H69.82 and BMI 40.0-44.9, adult Z68.41 [facility] [place] [address] [id number] [address] [place] [id number] Sep, Labyrinthitis of left ear H8 3.02 and Arthritis M19.90 [facility] [place] [id number] [place] [id number] Sep, [facility] [place] [id number] [place] [id number] Sep, [facility] [place] [id number] [place] [id number] Sep, Chronic kidney disease, stag e 4 (severe) N18.4 [facility] [place] [address] [facility] [id number] [address] [place] [id number] Sep, Chronic kidney disease, stag e 4 (severe) N18.4 [facility] [place] [address] [facility] [id number] [address] [place] [phone] Aug, Labyrinthitis of left ear H8 3.02 and Arthritis M19.90 [facility] [place] [address] [facility] [id number] [address] [place] [phone] Aug, [facility] [place] [address] [facility] [id number] [address] [place] [id number] Jul, [place] [address] [facility] [id number] [address] [place] [id number] Jul, Arthritis M19.90 and Labyrin thitis of left ear H83.02 [place] [id number] [facility] [id number] [address] [place] [id number] Jul, [facility] [place] [address] [facility] [id number] [address] [place] [id number] Jun, [facility] [place] [address] [facility] [id number] [address] [place] [id number] Jun, Arthritis M19.90 and Labyrin thitis of left ear H83.02 [place] [address] [facility] [id number] [address] [place] [phone] Jun, Pre-op evaluation Z01.818 ; BMI 40.0-44.9, adult Z68.41 and Encounter for immunization Z23 [place] [address] [facility] [id number] [address] [place] [phone] May, Arthritis M19.90 and Labyrin thitis of left ear H83.02 [place] [address] [id number] [address] [place] [id number] Apr, Labyrinthitis of left ear H8 3.02 [facility] [place] [address] [facility] [id number] [address] [place] [id number] 07 Apr, 2017 Arthritis M19.90 and Labyrin thitis of left ear H83.02 [facility] [place] [address] [facility] [id number] [address] [place] [id number] Mar, Arthritis M19.90 and Labyrin thitis of left ear H83.02 [facility] [place] [address] [facility] [id number] [address] [place] [id number] Mar, Chronic kidney disease, stag e 4 (severe) N18.4 [facility] [place] [address] [facility] [id number] [address] [place] [id number] Feb, Arthritis M19.90 and Labyrin thitis of left ear H83.02 [place] [address] [facility] [id number] [address] [place] [phone] Jan, Labyrinthitis of left ear H8 3.02 and 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 [facility] [place] [address] [facility] [id number] [address] [place] [id number] Dec, Arthritis M19.90 [facility] [place] [address] [facility] [id number] [address] [place] [id number] Dec, BPV (benign positional verti go), bilateral H81.13 [facility] [place] [address] [facility] [id number] [address] [place] [phone] Dec, [facility] [place] [address] [id number] [address] [place] [id number] Dec, [facility] [place] [address] [facility] [id number] [address] [place] [id number] Dec, [facility] [place] [address] [facility] [id number] [address] [place] [id number] Nov, Arthritis M19.90 and Deficie ncy of other specified B group vitamins E53.8 [facility] [place] [address] [id number] [address] [place] [id number] Nov, Arthritis M19.90 [facility] [place] [address] [facility] [id number] [address] [place] [id number] Nov, Hyperparathyroidism E21.3 [facility] [place] [address] [facility] [id number] [address] [place] [phone] October, [facility] [place] [address] [facility] [id number] [address] [place] [id number] October, Hyperparathyroidism E21.3 [facility] [place] [address] [facility] [id number] [address] [place] [phone] October, [facility] [place] [id number] [place] [phone] October, Renal insufficiency N28.9 an d Hyperparathyroidism E21.3 [facility] [place] [address] [id number] [address] [place] [id number] October, [facility] [place] [address] [facility] [id number] [address] [place] [id number] October, Renal insufficiency N28.9 an d Hyperparathyroidism E21.3 [facility] [place] [address] [id number] [address] [place] [id number] October, Arthritis M19.90 [facility] [place] [address] [id number] [address] [place] [id number] Sep, [facility] [place] [address] [facility] [id number] [address] [place] [id number] Sep, Lumbar neuritis M54.16 ; Tho racic abscess J86.9 and 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 [facility] [place] [address] [facility] [id number] [address] [place] [phone] Sep, [facility] [place] [address] [facility] [id number] [address] [place] [phone] Aug, Arthritis M19.90 [facility] [place] [address] [id number] [address] [place] [id number] Aug, Hyperparathyroidism E21.3 [facility] [place] [address] [id number] [address] [place] [id number] Aug, Hyperparathyroidism E21.3 [facility] [place] [address] [facility] [id number] [address] [place] [id number] Aug, Arthritis M19.90 [facility] [place] [address] [place] [id number] Jul, Mass of throat R22.1 [facility] [place] [address] [place] [id number] Jul, [facility] [place] [address] [id number] Jul, Arthritis M19.90 [facility] [place] [id number] [place] [id number] Jun, Arthritis M19.90 [facility] [place] [address] [place] [id number] Jun, [facility] [place] [address] [id number] Jun, Renal insufficiency N28.9 an d Parathyroid 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 [facility] [place] [address] [facility] [id number] [address] [place] [phone] Jun, Medicare welcome exam Z00.00 ; Encounter for immunization Z23 ; Arthritis M19.90 ; Medicare annual wellness visit, initial Z00.00 ; Medicare annual wellness visit, subsequent Z00.00 and 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 [facility] [place] [address] [facility] [id number] [address] [place] [id number] May, Renal insufficiency N28.9 an d 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 [facility] [place] [address] [facility] [id number] [address] [place] [phone] May, Renal insufficiency N28.9 [facility] [place] [address] [facility] [id number] [address] [place] [id number] 16 May, 2016 Renal insufficiency N28.9 [facility] [place] [address] [facility] [id number] [address] [place] [phone] 14 May, 2016 [facility] [place] [address] [facility] [id number] [address] [place] [id number] 16 Apr, 2016 [facility] [place] [address] [facility] [id number] [address] [place] [id number] 16 Apr, 2016 [facility] [place] [address] [facility] [id number] [address] [place] [phone] 14 Apr, 2016 Mass of throat R22.1 [facility] [place] [address] [facility] [id number] [address] [place] [id number] 10 Apr, 2016 [facility] [place] [address] [facility] [id number] [address] [place] [id number] 10 Apr, 2016 Mass of throat R22.1 [facility] [place] [address] [facility] [id number] [address] [place] [phone] 04 Apr, 2016 Mass of throat R22.1 [facility] [place] [address] [facility] [id number] [address] [place] [id number] 31 Mar, 2016 [facility] [place] [address] [facility] [id number] [address] [place] [id number] Mar, [facility] [place] [address] [facility] [id number] [address] [place] [id number] Mar, [facility] [place] [address] [facility] [id number] [address] [place] [id number] 24 Mar, 2016 Parathyroid abnormality E21. 5 and Encounter for immunization Z23 [facility] [place] [address] [facility] [id number] [address] [place] [id number] 17 Mar, 2016 [facility] [place] [address] [facility] [id number] [address] [place] [id number] 11 Mar, 2016 [facility] [place] [address] [facility] [id number] [address] [place] [id number] 21 Feb, 2016 Renal insufficiency N28.9 an d Hyperparathyroidism E21.3 [facility] [place] [address] [facility] [id number] [address] [place] [id number] 19 Feb, 2016 [facility] [place] [address] [facility] [id number] [address] [place] [phone] 15 Feb, 2016 Renal insufficiency N28.9 an d Hyperparathyroidism E21.3 [place] [address] [facility] [id number] [address] [place] [id number] 14 Feb, 2016 [facility] [place] [address] [facility] [id number] [address] [place] [phone] 12 Feb, 2016 [place] [address] [id number] [place] [phone] 09 Feb, 2016 [place] [address] [place] [id number] Jan, [place] [address] [place] [id number] [address] [place] [id number] Jan, Arthritis M19.90 ; Lumbago w ith sciatica, right side M54.41 and Other chronic pain G89.29 [place] [id number] [place] [id number] Jan, [place] [address] [place] [address] Dec, Arthritis M19.90 ; Lumbago w ith sciatica, right side M54.41 and Other chronic pain G89.29 [place] [address] [id number] [address] [place] [id number] 16 Nov, 2015 Deficiency of other specifie d B group vitamins E53.8 ; Primary insomnia F51.01 ; Mood disorder F39 and Lumbago with sciatica, right side M54.41 [place] [address] [place] [id number] [address] [place] [id number] 13 Nov, 2015 Hyperparathyroidism E21.3 [place] [address] [address] Nov, Unspecified kidney failure N 19 and Hyperparathyroidism E21.3 [facility] [place] [address] [address] October, Hyperparathyroidism E21.3 [facility] [place] [address] [address] October, [facility] [place] [address] [address] October, Hyperparathyroidism E21.3 [facility] [place] [address] [address] October, Hyperparathyroidism E21.3 [facility] [place] [address] [address] Sep, Hyperparathyroidism E21.3 ; Hypercholesterolemia E78.0 and Arthritis M19.90 [facility] [place] [address] [address] Aug, [facility] [place] [address] [id number] Aug, Deficiency of other specifie d B group vitamins E53.8 [facility] [place] [address] [id number] Aug, [facility] [place] [address] [address] Jul, Urinary frequency R35.0 [facility] [place] [address] [id number] Jul, Urinary frequency R35.0 [facility] [place] [address] [address] Jul, [facility] [place] [address] [address] Jul, [facility] [place] [address] [address] Jun, Pain in left knee M25.562 [facility] [place] [address] [id number] [address] [place] [id number] Jun, [facility] [place] [address] [id number] [address] [place] [id number] May, Swelling of left knee joint M25.462 [facility] [place] [address] [id number] [address] [place] [id number] May, [facility] [place] [address] [id number] [address] [place] [id number] May, [facility] [place] [address] [id number] [address] [place] [id number] May, [facility] [place] [address] [facility] [id number] [address] [place] [id number] Apr, Renal insufficiency N28.9 an d Chronic kidney disease, stage 4 (severe) N18.4 [facility] [place] [address] [id number] [address] [place] [id number] Apr, Unspecified kidney failure N 19 [facility] [place] [address] [facility] [id number] [address] [place] [phone] Apr, Unspecified kidney failure N 19 [facility] [place] [address] [facility] [id number] [address] [place] [id number] Apr, [facility] [place] [address] [facility] [id number] [address] [place] [id number] Apr, Hyperparathyroidism, unspeci fied 252.00 [facility] [place] [address] [id number] [address] [place] [phone] Apr, [facility] [place] [address] [facility] [id number] [address] [place] [phone] Mar, [facility] [place] [address] [facility] [id number] [address] [place] [id number] Mar, [facility] [place] [address] [id number] [address] [place] [id number] Mar, Hyperparathyroidism, unspeci fied 252.00 [facility] [place] [address] [id number] [address] [place] [phone] Feb, [facility] [place] [address] [facility] [id number] [address] [place] [id number] Feb, Otalgia 388.70 [facility] [place] [address] [id number] [address] [place] [id number] Feb, [facility] [place] [address] [id number] [address] [place] [id number] Feb, [facility] [place] [address] [id number] [address] [place] [id number] Jan, [facility] [place] [address] [facility] [id number] [address] [place] [id number] Jan, Hyperparathyroidism, unspeci fied 252.00 [facility] [place] [address] [id number] [address] [place] [id number] Jan, [facility] [place] [address] [id number] [address] [place] [id number] Jan, Other B-complex deficiencies 266.2 and Hyperparathyroidism, unspecified 252.00 [facility] [place] [address] [facility] [id number] [address] [place] [phone] Jan, [facility] [place], [facility] [address] [id number] [address] [place] [phone] Jan, [facility] [place] [address] [facility] [id number] [address] [place] [id number] Jan, [facility], [place] [address] [facility] [id number] [address] [place] [phone] Dec, [facility] [place], [facility] [address] [facility] [id number] [address] [place] [phone] Dec, [facility] [place] [address] [facility] [id number] [address] [place] [id number] Dec, [facility] [address] [id number] [address] [place] [id number] 15 Nov, 2014 Routine check-up V70.0 and P re-op exam V72.84 [facility] [address] [id number] [address] [place] [phone] Nov, [facility] [address] [id number] [address] [place] [phone] Nov, [facility] [address] [id number] [address] [place] [phone] October, [facility] [address] [id number] [address] [place] [phone] October, Other B-complex deficiencies 266.2 [facility] [address] [id number] [address] [place] [phone] October, [facility] [address] [id number] [address] [place] [phone] Sep, [facility] [address] [id number] [address] [place] [id number] Sep, [facility] [address] [id number] [address] [place] [phone] Aug, [facility] [address] [id number] [address] [place] [id number] Aug, [facility] [address] [id number] [address] [place] [phone] 17 Aug, 2014 [facility] [address] [id number] [address] [place] [id number] 17 Aug, 2014 [facility] [address] [id number] [address] [place] [phone] Aug, [facility] [address] [id number] [address] [place] [phone] Aug, [facility] [address] [id number] [address] [place] [address] [place] [phone] Jul, 2014 [facility] [address] [id number] [address] [place] [address], [place] [phone] Jul, 2014 [facility] [address] [id number] [address] [place] [address], [place] [id number] Jul, 2014 [facility] [address] [id number] [address] [place] [address], [place] [address] Jul, 2014 [facility] [address] [id number] [address] [place] [address], [place] [address] Jul, 2014 [facility] [address] [id number] [address] [place] [address], [place] [address] Jul, 2014 [facility] [address] [id number] [address] [place] [address], [place] [address] Jul, 2014 [facility] [address] [id number] [address] [place] [address], [place] [address] Jul, 2014 [facility] [address] [id number] [address] [place] [address] Jul, 2014 [facility] [address] [id number] [address] [place] [address], [place] [address] Jul, 2014 [facility] [address] [id number] [address] [place] [address] Jul, 2014 [facility] [address] [id number] [address] [place] [address] Jul, 2014 [facility] [address] [id number] [address] [place] [address], [place] [address] Jul, 2014 [facility] [address] [id number] [address] [place] [address], [place] [address] Jul, 2014 [facility] [address] [id number] [address] [place] [address] Jun, [facility] [address] [id number] [address] [place] [address] Jun, [facility] [address] [id number] [address] [place] [address], [place] [address] Jun, [facility] [address] [id number] [address] [place] [address], [place] [address] Jun, [facility] [address] [id number] [address] [place] [address], [place] [address] Jun, [facility] [address] [id number] [address] [place] [address], [place] [address] Jun, [facility] [address] [id number] [address] [place] [address], [place] [address] Jun, [facility] [address] [id number] [address] [place] [address], [place] [address] Jun, [facility] [address] [id number] [address] [place] [address], [place] [address] Jun, [facility] [address] [id number] [address] [place] [address], [place] [address] Jun, [facility] [address] [id number] [address] [place] [address], [place] [address] Jun, [facility] [address] [id number] [address] [place] [address], [place] [address] Jun, [facility] [address] [id number] [address] [place] [address], [place] [address] Jun, [facility] [address] [id number] [address] [place] [address], [place] [address] Jun, [facility] [address] [id number] [address] [place] [address], [place] [address] May, [facility] [address] [id number] [address] [place] [address], [place] [address] May, [facility] [address] [id number] [address] [place] [address], [place] [address] May, [facility] [address] [id number] [address] [place] [address], [place] [address] May, [facility] [address] [id number] [address] [place] [address], [place] [address] Apr, [facility] [address] [id number] [address] [place] [address], [place] [address] Apr, [facility] [address] [id number] [address] [place] [address], [place] [address] Apr, [facility] [address] [id number] [address] [place] [address], [place] [address] Apr, [facility] [address] [id number] [address] [place] [address], [place] [address] Apr, [facility] [address] [id number] [address] [place] [address], [place] [address] Apr, [facility] [address] [id number] [address] [place] [address], [place] [address] Mar, [facility] [address] [id number] [address] [place] [address], [place] [address] Mar, [facility] [address] [id number] [address] [place] [address], [place] [address] Mar, [facility] [address] [id number] [address] [place] [address], [place] [address] Mar, [facility] [address] [id number] [address] [place] [address], [place] [address] Mar, [facility] [address] [id number] [address] [place] [address], [place] [address] 15 Mar, 2014 [facility] [address] [id number] [address] [place] [address], [place] [address] Mar, [facility] [address] [id number] [address] [place] [address], [place] [address] Mar, [facility] [address] [id number] [address] [place] [address], [place] [address] Mar, [facility] [address] [id number] [address] [place] [address], [place] [address] 07 Mar, 2014 [facility] [address] [id number] [address] [place] [address], [place] [address] Mar, [facility] [address] [id number] [address] [place] [address], [place] [address] Mar, [facility] [address] [id number] [address] [place] [address], [place] [address] Mar, [facility] [address] [id number] [address] [place] [address], [place] [address] 26 Feb, 2013 [facility] [address] [id number] [address] [place] [address], [place] [address] 26 Feb, 2013 [facility] [address] [id number] [address] [place] [address], [place] [address] 23 Feb, 2013 [facility] [address] [id number] [address] [place] [address], [place] [address] 23 Feb, 2013 [facility] [address] [id number] [address] [place] [address], [place] [address] 19 Feb, 2014 [facility] [address] [id number] [address] [place] [address], [place] [address] 19 Feb, 2013 [facility] [address] [id number] [address] [place] [address], [place] [address] 13 Feb, 2013 [facility] [address] [id number] [address] [place] [address] 13 Feb, 2013 [facility] [address] [id number] [address] [place] [address], [place] [address] 12 Feb, 2014 [facility] [address] [id number] [address] [place] [address], [place] [address] 12 Feb, 2013 [facility] [address] [id number] [address] [place] [address] 15 Jan, 2014 [facility] [address] [id number] [address] [place] [address], [place] [address] Jan, [facility] [address] [id number] [facility] [place] [address] Dec, [facility] [address] [id number] [address] [place] [address], [place] [address] Dec, [facility] [address] [id number] [address] [place] [address], [place] [address] Dec, [facility] [address] [id number] [address] [place] [address], [place] [address] Dec, [facility] [address] [id number] [address] [place] [address], [place] [address] Dec, [facility] [address] [id number] [address] [place] [address], [place] [address] Dec, [facility] [address] [id number] [address] [place] [address], [place] [address] Nov, [facility] [address] [id number] [address] [place] [address], [place] [address] Nov, [facility] [address] [id number] [address] [place] [address], [place] [address] Nov, [facility] [address] [id number] [address] [place] [address], [place] [address] Nov, [facility] [address] [id number] [address] [place] [address], [place] [address] October, [facility] [address] [id number] [address] [place] [address], [place] [address] October, [facility] [address] [id number] [address] [place] [address], [place] [address] October, [facility] [address] [id number] [address] [place] [address], [place] [address] October, [facility] [address] [id number] [address] [place] [address], [place] [address] October, [facility] [address] [id number] [facility] [place] [address] October, [facility] [address] [id number] [facility] [place] [address] October, [facility] [address] [id number] [facility] [place] [address] October, [facility] [address] [id number] [address] [place] [address], [place] [address] October, [facility] [address] [id number] [address] [place] [address], [place] [address] October, [facility] [address] [id number] [address] [place] [address], [place] [address] October, [facility] [address] [id number] [address] [place] [address], [place] [address] October, [facility] [address] [id number] [address] [place] [address], [place] [address] October, [facility] [address] [id number] [address] [place] [address], [place] [address] October, [facility] [address] [id number] [address] [place] [address], [place] [address] October, [facility] [address] [id number] [address] [place] [address], [place] [address] October, [facility] [address] [id number] [address] [place] [address], [place] [address] Sep, [facility] [address] [id number] [address] [place] [address], [place] [address] Sep, [facility] [address] [id number] [address] [place] [address], [place] [address] Sep, [facility] [address] [id number] [address] [place] [address], [place] [address] Sep, [facility] [address] [id number] [address] [place] [address], [place] [address] Sep, [facility] [address] [id number] [facility] [place] [address] Sep, [facility] [address] [id number] [address] [place] [address], [place] [address] Aug, [facility] [address] [id number] [address] [place] [address], [place] [address] Aug, [facility] [address] [id number] [address] [place] [address], [place] [address] Aug, [facility] [address] [id number] [address] [place] [address], [place] [address] Aug, [facility] [address] [id number] [address] [place] [address], [place] [address] Aug, [facility] [address] [id number] [address] [place] [address], [place] [address] Aug, [facility] [address] [id number] [address] [place] [address], [place] [address] Jul, [facility] [address] [id number] [address] [place] [address], [place] [address] Jul, [facility] [address] [id number] [address] [place] [address], [place] [address] Jul, [facility] [address] [id number] [address] [place] [address], [place] [address] Jul, [facility] [address] [id number] [address] [place] [address], [place] [address] Jun, [facility] [address] [id number] [address] [place] [address], [place] [address] Jun, [facility] [address] [id number] [address] [place] [address], [place] [address] May, [facility] [address] [id number] [address] [place] [address], [place] [address] May, [facility] [address] [id number] [address] [place] [address], [place] [address] 10 May, 2013 [facility] [address] [id number] [address] [place] [address], [place] [address] May, [facility] [address] [id number] [address] [place] [address], [place] [address] May, [facility] [address] [id number] [address] [place] [address], [place] [address] Apr, [facility] [address] [id number] [address] [place] [address], [place] [address] Apr, [facility] [address] [id number] [address] [place] [address], [place] [address] Apr, [facility] [address] [id number] [address] [place] [address], [place] [address] Apr, [facility] [address] [id number] [address] [place] [address], [place] [address] Apr, [facility] [address] [id number] [address] [place] [address], [place] [address] Apr, [facility] [address] [id number] [address] [place] [address], [place] [address] 15 Mar, 2013 [facility] [address] [id number] [address] [place] [address], [place] [address] 15 Mar, 2013 [facility] [address] [id number] [address] [place] [address], [place] [address] 14 Mar, 2013 [facility] [address] [id number] [address] [place] [address], [place] [address] 14 Mar, 2013 [facility] [address] [id number] [address] [place] [address], [place] [address] 11 Mar, 2013 [facility] [address] [id number] [address] [place] [address], [place] [address] 11 Mar, 2013 [facility] [address] [id number] [address] [place] [address], [place] [address] Feb, [facility] [address] [id number] [address] [place] [address], [place] [address] Feb, [facility] [address] [id number] [address] [place] [address], [place] [address] Feb, [facility] [address] [id number] [address] [place] [address], [place] [address] Jan, [facility] [address] [id number] [address] [place] [address], [place] [address] Jan, [facility] [address] [id number] [address] [place] [address], [place] [address] Jan, [facility] [address] [id number] [address] [place] [address], [place] [address] Jan, [facility] [address] [id number] [address] [place] [address], [place] [address] Jan, [facility] [address] [id number] [address] [place] [address], [place] [address] Jan, [facility] [address] [id number] [address] [place] [address], [place] [address] Dec, [facility] [address] [id number] [address] [place] [address], [place] [address] Dec, [facility] [address] [id number] [address] [place] [address], [place] [address] Dec, [facility] [address] [id number] [address] [place] [address], [place] [address] Dec, [facility] [address] [id number] [address] [place] [address], [place] [address] Dec, [facility] [address] [id number] [address] [place] [address], [place] [address] Dec, [facility] [address] [id number] [address] [place] [address], [place] [address] Nov, [facility] [address] [id number] [address] [place] [address], [place] [address] Nov, [facility] [address] [id number] [address] [place] [address], [place] [address] Nov, [facility] [address] [id number] [address] [place] [address], [place] [address] Nov, [facility] [address] [id number] [address] [place] [address], [place] [address] Nov, [facility] [address] [id number] [address] [place] [address], [place] [address] Nov, [facility] [address] [id number] [address] [place] [address], [place] [address] October, [facility] [address] [id number] [address] [place] [address], [place] [address] October, [facility] [address] [id number] [address] [place] [address], [place] [address] October, [facility] [address] [id number] [address] [place] [address], [place] [address] October, [facility] [address] [id number] [address] [place] [address], [place] [address] October, [facility] [address] [id number] [address] [place] [address], [place] [address] Sep, [facility] [address] [id number] [address] [place] [address], [place] [address] Sep, [facility] [address] [id number] [address] [place] [address], [place] [address] Sep, [facility] [address] [id number] [address] [place] [address], [place] [address] Sep, [facility] [address] [id number] [address] [place] [address], [place] [address] Sep, [facility] [address] [id number] [address] [place] [address], [place] [address] Aug, [facility] [address] [id number] [address] [place] [address], [place] [address] 07 Aug, 2012 [facility] [address] [id number] [address] [place] [address], [place] [address] 04 Aug, 2012 [facility] [address] [id number] [address] [place] [address], [place] [address] Jul, [facility] [address] [id number] [address] [place] [address], [place] [address] 20 Jul, 2012 [facility] [address] [id number] [address] [place] [address], [place] [address] Jul, [facility] [address] [id number] [address] [place] [address], [place] [address] 08 Jul, 2012 [facility] [address] [id number] [address] [place] [address], [place] [address] 06 Jul, 2012 [facility] [address] [id number] [address] [place] [address], [place] [address] 05 Jul, 2012 [facility] [address] [id number] [address] [place] [address], [place] [address] 15 Jun, 2012 [facility] [address] [id number] [address] [place] [address], [place] [address] 16 Apr, 2012 [facility] [address] [id number] [address] [place] [address], [place] [address] 16 Apr, 2012 [facility] [address] [id number] [address] [place] [address] Apr, [facility] [address] [id number] [address] [place] [address], [place] [address] Apr, [facility] [address] [id number] [address] [place] [address], [place] [address] Mar, [facility] [address] [id number] [address] [place] [address], [place] [address] Mar, [facility] [address] [id number] [address] [place] [id number] Mar, [facility] [address] [id number] [address] [place] [address], [place] [address] Mar, [facility] [address] [id number] [address] [place] [address], [place] [address] Mar, [facility] [address] [id number] [address] [place] [address], [place] [address] Feb, [facility] [address] [id number] [address] [place] [address], [place] [address] Jan, [facility] [address] [id number] [address] [place] [address], [place] [address] Jan, [facility] [address] [id number] [address] [place] [address], [place] [address] Jan, [facility] [address] [id number] [address] [place] [address], [place] [address] Dec, [facility] [address] [id number] [address] [place] [address], [place] [address] Nov, [facility] [address] [id number] [address] [place] [address], [place] [address] Nov, [facility] [address] [id number] [address] [place] [address], [place] [address] Nov, [facility] [address] [id number] [address] [place] [address], [place] [address] Nov, [facility] [address] [id number] [address] [place] [address], [place] [address] Nov, [facility] [address] [id number] [address] [place] [address], [place] [address] October, [facility] [address] [id number] [address] [place] [address], [place] [address] October, [facility] [address] [id number] [address] [place] [address], [place] [address] October, [facility] [address] [id number] [address] [place] [address] October, [facility] [address] [facility] [id number] [address] [address] October, IMMUNIZATIONS No Known Immunizations SOCIAL HISTORY Never Assessed REASON FOR VISIT Lab (walk-in) PLAN OF CARE VITAL SIGNS MEDICATIONS No Known Medications RESULTS Name Result Date Reference Range PTH (INTACT) 2017-04-02 PTH, Intact 101 15-65 UA W/ MICROSCOPY 2017-04-02 Specific [place] 1.024 1.005-1.030 pH 7.0 5.0-7.5 Urine-Color Yellow Yellow Appearance Clear Clear WBC Esterase 1+ Negative Protein Negative Negative/Trace Glucose Negative Negative Ketones Negative Negative Occult Blood Negative Negative Bilirubin Negative Negative Urobilinogen,Semi-Qn 1.0 0.2-1.0 Nitrite, Urine Negative Negative Microscopic Examination See below: WBC 6-10 0 - 5 RBC 0-2 0 - 2 Epithelial Cells (non renal) 0-10 0 - 10 Crystals Present N/A Crystal Type Calcium Oxalate N/A Mucus Threads Present Not Estab. Bacteria Few None seen/Few CBC 2017-04-02 WBC 6.6 3.4-10.8 RBC 4.54 3.77-5.28 Hemoglobin 12.9 11.1-15.9 Hematocrit 39.6 34.0-46.6 MCV 87 79-97 MCH 28.4 26.6-33.0 MCHC 32.6 31.5-35.7 RDW 14.1 12.3-15.4 Platelets 266 150-379 Neutrophils 71 Not Estab. Lymphs 23 Not Estab. Monocytes 4 Not Estab. Eos 1 Not Estab. Basos 0 Not Estab. Neutrophils (Absolute) 4.7 1.4-7.0 Lymphs (Absolute) 1.5 0.7-3.1 Monocytes(Absolute) 0.3 0.1-0.9 Eos (Absolute) 0.1 0.0-0.4 Baso (Absolute) 0.0 0.0-0.2 Immature Granulocytes 1 Not Estab. Immature Grans (Abs) 0.0 0.0-0.1 VITAMIN D, 25-H 2017-04-02 Vitamin D, 25-Hydroxy 44.3 30.0-100.0 MICROALBUMIN/CREATININE RATIO, URINE 2017-04-02 Creatinine, Urine 170.6 Not Estab. Microalbumin, Urine 3.1 Not Estab. Microalb/Creat Ratio 1.8 0.0-30.0 RENAL PROFILE 2017-04-02 Glucose, Serum 88 65-99 BUN 20 8-27 Creatinine, Serum 1.29 0.57-1.00 eGFR If NonAfricn Am 43 >59 eGFR If Africn Am 50 >59 BUN/Creatinine Ratio 16 12-28 Sodium, Serum 143 134-144 Potassium, Serum 4.2 3.5-5.2 Chloride, Serum 103 96-106 Carbon Dioxide, Total 22 18-29 Calcium, Serum 8.9 8.7-10.3 Phosphorus, Serum 3.6 2.5-4.5 Albumin, Serum 3.9 3.6-4.8 PROCEDURES Procedure Date Ordered Result Body Site LAB NOT BILLED BY [facility] Apr 02, 2017 VENIPUNCT, ROUTINE* Apr 02, 2017 INSTRUCTIONS MEDICATIONS ADMINISTERED No Known [...]
--- OUTSIDE RECORDS SUMMARY | 2020-01-25 08:26 | XMS REPORT | Continuity of Care Document ---
Demographics Preferred Language Unknown Marital Status Unknown Taoist Affiliation Unknown Race Unknown Ethnic Group Unknown Author Organization Unknown Address Unknown Phone Unavailable Allergies Active Description Code Type Severity Reaction Onset Reported/Identified Relationship to Patient Clinical Status Yes CLONIDINE CLONIDINE MILD Yes CYMBALTA CYMBALTA MODERATE Yes CLONIDINE MILD GI PROBLEMS - NAUSEA Yes CYMBALTA MODERATE GI PROBLEMS - NAUSEA Yes No Known Drug Allergies [id number] Drug Allergy Unknown N/A 03/28/2013 Yes clonidine 0.1 mg tablet Drug Allergy N/A N/A 04/12/2013 Yes duloxetine [id number] Drug Allerg y Moderate NAUSEA 01/23/2020 Medications Medication Packaging Start Date St op Date Route Dosage Sig ZOLPIDEM TAB 10 MG (AMBIEN) Dose(s) 06/25/2016 07/02/2016 PRN QHS HYDROCODONE/APAP 10/325 TAB 10 /325 (LORENZO-TAB 10/325) Dose(s) 06/25/2016 07/05/2016 Q8H&0600,1400,2200 LISINOPRIL TAB 5 MG (ZESTRIL) Dose(s) 06/26/2016 07/02/2016 QAM&0800 CETIRIZINE TAB 10 MG (ZYRTEC) Dose(s) 06/26/2016 07/02/2016 Daily&0900 NORMAL SALINE 1000CC IV BAG INJ 0.9 % (NS 1000CC IV BAG) ml 06/27/2016 07/12/2016 CONTINUOUSEVERY 0 Hour FENTANYL AMP INJ 100 MCG/2CC MCG 07/01/2016 07/01/2016 ONCE&0736 NORMAL SALINE 1000CC IV BAG INJ 0.9 % (NS 1000CC IV BAG) ml 07/01/2016 07/16/2016 CONTINUOUSEVERY 0 Hour MEPERIDINE SYRINGE INJ 25 MG /CC (DEMEROL SYRINGE) MG 07/01/2016 07/01/2016 ONCE&1209 NORMAL SALINE 1000CC IV BAG INJ 0.9 % (NS 1000CC IV BAG) ml 07/01/2016 07/16/2016 CONTINUOUSEVERY 0 Hour ONDANSETRON VIAL INJ 4 MG/2CC (ZOFRAN 2CC VIAL) MG 07/01/2016 07/08/2016 PRN Q6H MORPHINE 1CC VIAL INJ 5 MG/CC MG 07/01/2016 07/08/2016 PRN Q2H FENTANYL AMP INJ 100 MCG/2CC MCG 07/01/2016 07/04/2016 Q2H&0200,0400,0600,0800,1000,1200,1400,1600,1800,2000,2200,2359 ZOLPIDEM TAB 10 MG (AMBIEN) MG 07/01/2016 07/07/2016 PRN QHS HYDROCODONE/APAP 10/325 TAB 10 /325 (LORENZO-TAB 10/325) TAB 07/01/2016 07/11/2016 Q4H&0200,0600,1000,1400,1800 ,2200 SCOPOLAMINE PATCH PAT 1.5 MG (TRANSDERM SC OP) MG 07/02/2016 07/08/2016 Q72H&0800 LISINOPRIL TAB 5 MG (ZESTRIL) MG 07/02/2016 07/08/2016 Daily&0900 CETIRIZINE TAB 10 MG (ZYRTEC) MG 07/02/2016 07/08/2016 Daily&0900 Problems Date Dx Coded Attending Type Code Diagnosis Diagnosed By 05/28/1436 SRIKANTH ACOSTA Ot M76. 52 PATELLAR TENDINITIS, LEFT KNEE 11/03/2011 458.0 ORTH OSTATIC HYPOTENSION 11/03/2011 716.90 ART HRITIS/ ARTHROPATHY, UNSPECIFIED 11/03/2011 729.1 FIBR OMYALGIA 11/03/2011 458.0 ORTH OSTATIC HYPOTENSION 11/03/2011 716.90 ART HRITIS/ ARTHROPATHY, UNSPECIFIED 11/03/2011 729.1 FIBR OMYALGIA 11/03/2011 YUE DUENAS DO 458.0 ORTHOSTATIC HYPOTENSION 11/03/2011 YUE DUENAS DO 716.90 ARTHRITIS/ ARTHROPATHY, UNSPECIFIED 11/03/2011 YUE DUENAS DO 729.1 FIBROMYALGIA 11/03/2011 458.0 ORTH OSTATIC HYPOTENSION 11/03/2011 716.90 ART HRITIS/ ARTHROPATHY, UNSPECIFIED 11/03/2011 729.1 FIBR OMYALGIA 11/03/2011 YUE DUENAS DO 458.0 ORTHOSTATIC HYPOTENSION 11/03/2011 DUENAS DO, YUE K 716.90 ARTHRITIS/ ARTHROPATHY, UNSPECIFIED 11/03/2011 DUENAS DOYUE 729.1 FIBROMYALGIA 11/03/2011 458.0 ORTH OSTATIC HYPOTENSION 11/03/2011 716.90 ART HRITIS/ ARTHROPATHY, UNSPECIFIED 11/03/2011 729.1 FIBR OMYALGIA 11/03/2011 458.0 ORTH OSTATIC HYPOTENSION 11/03/2011 716.90 ART HRITIS/ ARTHROPATHY, UNSPECIFIED 11/03/2011 729.1 FIBR OMYALGIA 11/03/2011 458.0 ORTH OSTATIC HYPOTENSION 11/03/2011 716.90 ART HRITIS/ ARTHROPATHY, UNSPECIFIED 11/03/2011 729.1 FIBR OMYALGIA 11/03/2011 458.0 ORTH OSTATIC HYPOTENSION 11/03/2011 716.90 ART HRITIS/ ARTHROPATHY, UNSPECIFIED 11/03/2011 729.1 FIBR OMYALGIA 11/03/2011 458.0 ORTH OSTATIC HYPOTENSION 11/03/2011 716.90 ART HRITIS/ ARTHROPATHY, UNSPECIFIED 11/03/2011 729.1 FIBR OMYALGIA 11/03/2011 458.0 ORTH OSTATIC HYPOTENSION 11/03/2011 716.90 ART HRITIS/ ARTHROPATHY, UNSPECIFIED 11/03/2011 729.1 FIBR OMYALGIA 11/03/2011 458.0 ORTH OSTATIC HYPOTENSION 11/03/2011 716.90 ART HRITIS/ ARTHROPATHY, UNSPECIFIED 11/03/2011 729.1 FIBR OMYALGIA 11/03/2011 458.0 ORTH OSTATIC HYPOTENSION 11/03/2011 716.90 ART HRITIS/ ARTHROPATHY, UNSPECIFIED 11/03/2011 729.1 FIBR OMYALGIA 11/03/2011 458.0 ORTH OSTATIC HYPOTENSION 11/03/2011 716.90 ART HRITIS/ ARTHROPATHY, UNSPECIFIED 11/03/2011 729.1 FIBR OMYALGIA 11/03/2011 458.0 ORTH OSTATIC HYPOTENSION 11/03/2011 716.90 ART HRITIS/ ARTHROPATHY, UNSPECIFIED 11/03/2011 729.1 FIBR OMYALGIA 11/03/2011 DUENAS YUE ROSAS 458.0 ORTHOSTATIC HYPOTENSION 11/03/2011 DUENAS YUE ROSAS 716.90 ARTHRITIS/ ARTHROPATHY, UNSPECIFIED 11/03/2011 DUENAS YUE ROSAS 729.1 FIBROMYALGIA 11/03/2011 DUENAS DO, YUE K 458.0 ORTHOSTATIC HYPOTENSION 11/03/2011 DUENAS DO, YUE K 716.90 ARTHRITIS/ ARTHROPATHY, UNSPECIFIED 11/03/2011 DUENAS DO, YUE K 729.1 FIBROMYALGIA 11/03/2011 DUENAS DO, YUE K 458.0 ORTHOSTATIC HYPOTENSION 11/03/2011 DUENAS DO, YUE K 716.90 ARTHRITIS/ ARTHROPATHY, UNSPECIFIED 11/03/2011 DUENAS DO, YUE K 729.1 FIBROMYALGIA 11/03/2011 STEPHAN CORDERO APRN 45 8.0 ORTHOSTATIC HYPOTENSION 11/03/2011 STEPHAN CORDERO APRN 716.90 ARTHRITIS/ ARTHROPATHY, UNSPECIFIED 11/03/2011 STEPHAN CORDERO APRN 72 9.1 FIBROMYALGIA 11/03/2011 VANDANA ARENAS, RAMIN Morin 45 8.0 ORTHOSTATIC HYPOTENSION 11/03/2011 VANDANA ARENAS, RAMIN Morin 716.90 ARTHRITIS/ ARTHROPATHY, UNSPECIFIED 11/03/2011 VANDANA ARENAS, RAMIN Morin 72 9.1 FIBROMYALGIA 11/03/2011 STEPHAN CORDERO APRN 45 8.0 ORTHOSTATIC HYPOTENSION 11/03/2011 STEPHAN CORDERO APRN 716.90 ARTHRITIS/ ARTHROPATHY, UNSPECIFIED 11/03/2011 STEPHAN CORDERO APRN 72 9.1 FIBROMYALGIA 11/03/2011 STEPHAN CORDERO APRN 45 8.0 ORTHOSTATIC HYPOTENSION 11/03/2011 STEPHAN CORDERO APRN 716.90 ARTHRITIS/ ARTHROPATHY, UNSPECIFIED 11/03/2011 STEPHAN CORDERO APRN 72 9.1 FIBROMYALGIA 11/03/2011 DUENAS DO, YUE K 458.0 ORTHOSTATIC HYPOTENSION 11/03/2011 DUENAS DO, YUE K 716.90 ARTHRITIS/ ARTHROPATHY, UNSPECIFIED 11/03/2011 DUENAS DO, YUE K 729.1 FIBROMYALGIA 11/03/2011 STEPHAN CORDERO APRN 45 8.0 ORTHOSTATIC HYPOTENSION 11/03/2011 STEPHAN CORDERO APRN 716.90 ARTHRITIS/ ARTHROPATHY, UNSPECIFIED 11/03/2011 STEPHAN CORDERO APRN 72 9.1 FIBROMYALGIA 11/03/2011 STEPHAN CORDERO APRN 45 8.0 ORTHOSTATIC HYPOTENSION 11/03/2011 STEPHAN CORDERO APRN 716.90 ARTHRITIS/ ARTHROPATHY, UNSPECIFIED 11/03/2011 [facility]LY CHILDHOOD, STEPHAN T 72 9.1 FIBROMYALGIA 11/03/2011 DUENAS DO, YUE K 458.0 ORTHOSTATIC HYPOTENSION 11/03/2011 DUENAS DO, YUE K 716.90 ARTHRITIS/ ARTHROPATHY, UNSPECIFIED 11/03/2011 DUENAS DO, YUE K 729.1 FIBROMYALGIA 11/03/2011 [facility] EARLY CHILDHOOD, CAITLIN A 45 8.0 ORTHOSTATIC HYPOTENSION 11/03/2011 DIPAK EARLY CHILDHOOD, CAITLIN A 716.90 ARTHRITIS/ ARTHROPATHY, UNSPECIFIED 11/03/2011 DIPAK EARLY CHILDHOOD, CAITLIN A 72 9.1 FIBROMYALGIA 11/03/2011 DIPAK EARLY CHILDHOOD, CAITLIN A 45 8.0 ORTHOSTATIC HYPOTENSION 11/03/2011 DIPAK EARLY CHILDHOOD, CAITLIN A 716.90 ARTHRITIS/ ARTHROPATHY, UNSPECIFIED 11/03/2011 [facility] EARLY CHILDHOOD, CAITLIN A 72 9.1 FIBROMYALGIA 11/03/2011 DUENAS DO, YUE K 458.0 ORTHOSTATIC HYPOTENSION 11/03/2011 DUENAS DO, YUE K 716.90 ARTHRITIS/ ARTHROPATHY, UNSPECIFIED 11/03/2011 DUENAS DO, YUE K 729.1 FIBROMYALGIA 11/03/2011 STEPHAN CORDERO APRN 45 8.0 ORTHOSTATIC HYPOTENSION 11/03/2011 STEPHAN CORDERO APRN 716.90 ARTHRITIS/ ARTHROPATHY, UNSPECIFIED 11/03/2011 STEPHAN CORDERO APRN 72 9.1 FIBROMYALGIA 11/03/2011 DUENAS DO, YUE K 458.0 ORTHOSTATIC HYPOTENSION 11/03/2011 DUENAS DO, YUE K 716.90 ARTHRITIS/ ARTHROPATHY, UNSPECIFIED 11/03/2011 DUENAS DO, YUE K 729.1 FIBROMYALGIA 11/03/2011 STEPHAN CORDERO APRN 45 8.0 ORTHOSTATIC HYPOTENSION 11/03/2011 STEPHAN CORDERO APRN 716.90 ARTHRITIS/ ARTHROPATHY, UNSPECIFIED 11/03/2011 STEPHAN CORDERO APRN 72 9.1 FIBROMYALGIA 11/03/2011 STEPHAN CORDERO APRN 45 8.0 ORTHOSTATIC HYPOTENSION 11/03/2011 STEPHAN CORDERO APRN 716.90 ARTHRITIS/ ARTHROPATHY, UNSPECIFIED 11/03/2011 STEPHAN CORDERO APRN 72 9.1 FIBROMYALGIA 11/03/2011 STEPHAN CORDERO APRN 45 8.0 ORTHOSTATIC HYPOTENSION 11/03/2011 STEPHAN CORDERO APRN 716.90 ARTHRITIS/ ARTHROPATHY, UNSPECIFIED 11/03/2011 STEPHAN CORDERO APRN 72 9.1 FIBROMYALGIA 11/03/2011 DUENAS DO, YUE K 458.0 ORTHOSTATIC HYPOTENSION 11/03/2011 DUENAS DO, YUE K 716.90 ARTHRITIS/ ARTHROPATHY, UNSPECIFIED 11/03/2011 DUENAS DO, YUE K 729.1 FIBROMYALGIA 11/03/2011 RITO CUMMINGS, KAIDEN Clifford 458.0 ORTHOSTATIC HYPOTENSION 11/03/2011 RITO CUMMINGS, KAIDEN Clifford 716.90 ARTHRITIS/ ARTHROPATHY, UNSPECIFIED 11/03/2011 RITO CUMMINGS, KAIDEN Clifford 729.1 FIBROMYALGIA 11/03/2011 RITO CUMMINGS, KAIDEN Clifford 458.0 ORTHOSTATIC HYPOTENSION 11/03/2011 RITO CUMMINGS, KAIDEN Clifford 716.90 ARTHRITIS/ ARTHROPATHY, UNSPECIFIED 11/03/2011 RITO CUMMINGS, KAIDEN Clifford 729.1 FIBROMYALGIA 11/03/2011 RITO CUMMINGS, KAIDEN Clifford 458.0 ORTHOSTATIC HYPOTENSION 11/03/2011 RITO CUMMINGS, KAIDEN Clifford 716.90 ARTHRITIS/ ARTHROPATHY, UNSPECIFIED 11/03/2011 RITO CUMMINGS, KAIDEN Clifford 729.1 FIBROMYALGIA 11/03/2011 STEPHAN CORDERO APRN 45 8.0 ORTHOSTATIC HYPOTENSION 11/03/2011 STEPHAN CORDERO APRN 716.90 ARTHRITIS/ ARTHROPATHY, UNSPECIFIED 11/03/2011 STEPHAN CORDERO APRN 72 9.1 FIBROMYALGIA 11/03/2011 STEPHAN CORDERO APRN 45 8.0 ORTHOSTATIC HYPOTENSION 11/03/2011 STEPHAN CORDERO APRN 716.90 ARTHRITIS/ ARTHROPATHY, UNSPECIFIED 11/03/2011 STEPHAN CORDERO APRN 72 9.1 FIBROMYALGIA 11/03/2011 STEPHAN CORDERO APRN 45 8.0 ORTHOSTATIC HYPOTENSION 11/03/2011 STEPHAN CORDERO APRN 716.90 ARTHRITIS/ ARTHROPATHY, UNSPECIFIED 11/03/2011 STEPHAN CORDERO APRN T 72 9.1 FIBROMYALGIA 11/03/2011 STEPHAN CORDERO APRN T 45 8.0 ORTHOSTATIC HYPOTENSION 11/03/2011 STEPHAN CORDERO APRN 716.90 ARTHRITIS/ ARTHROPATHY, UNSPECIFIED 11/03/2011 STEPHAN CORDERO APRN 72 9.1 FIBROMYALGIA 11/03/2011 DUENAS JARED ROSASA K 458.0 ORTHOSTATIC HYPOTENSION 11/03/2011 DUENAS DO YUE K 716.90 ARTHRITIS/ ARTHROPATHY, UNSPECIFIED 11/03/2011 DUENAS DO, YUE K 729.1 FIBROMYALGIA 11/12/2011 586 RENAL FAILURE UNSPECIFIED 11/12/2011 586 RENAL FAILURE UNSPECIFIED 11/12/2011 DUENAS DO, YUE K 586 RENAL FAILURE UNSPECIFIED 11/12/2011 586 RENAL FAILURE UNSPECIFIED 11/12/2011 DUENAS DO, YUE K 586 RENAL FAILURE UNSPECIFIED 11/12/2011 586 RENAL FAILURE UNSPECIFIED 11/12/2011 586 RENAL FAILURE UNSPECIFIED 11/12/2011 586 RENAL FAILURE UNSPECIFIED 11/12/2011 586 RENAL FAILURE UNSPECIFIED 11/12/2011 586 RENAL FAILURE UNSPECIFIED 11/12/2011 586 RENAL FAILURE UNSPECIFIED 11/12/2011 586 RENAL FAILURE UNSPECIFIED 11/12/2011 586 RENAL FAILURE UNSPECIFIED 11/12/2011 586 RENAL FAILURE UNSPECIFIED 11/12/2011 586 RENAL FAILURE UNSPECIFIED 11/12/2011 DUENAS DO, YUE K 586 RENAL FAILURE UNSPECIFIED 11/12/2011 DUENAS DO, YUE K 586 RENAL FAILURE UNSPECIFIED 11/12/2011 DUENAS DO, YUE K 586 RENAL FAILURE UNSPECIFIED 11/12/2011 STEPHAN CORDERO APRN 58 6 RENAL FAILURE UNSPECIFIED 11/12/2011 VANDANA ARENAS, RAMIN Morin 58 6 RENAL FAILURE UNSPECIFIED 11/12/2011 STEPHAN CORDERO APRN 58 6 RENAL FAILURE UNSPECIFIED 11/12/2011 STEPHAN CORDERO APRN 58 6 RENAL FAILURE UNSPECIFIED 11/12/2011 DUENAS DO, YUE K 586 RENAL FAILURE UNSPECIFIED 11/12/2011 STEPHAN CORDERO APRN 58 6 RENAL FAILURE UNSPECIFIED 11/12/2011 STEPHAN CORDERO APRN 58 6 RENAL FAILURE UNSPECIFIED 11/12/2011 DUENAS DO, YUE K 586 RENAL FAILURE UNSPECIFIED 11/12/2011 CAITLIN QUESADA APRN 58 6 RENAL FAILURE UNSPECIFIED 11/12/2011 CAITLIN QUESADA APRN A 58 6 RENAL FAILURE UNSPECIFIED 11/12/2011 DUENAS DO, YUE K 586 RENAL FAILURE UNSPECIFIED 11/12/2011 STEPHAN CORDERO APRN 58 6 RENAL FAILURE UNSPECIFIED 11/12/2011 DUENAS DO, YUE K 586 RENAL FAILURE UNSPECIFIED 11/12/2011 STEPHAN CORDERO APRN 58 6 RENAL FAILURE UNSPECIFIED 11/12/2011 STEPHAN CORDERO APRN 58 6 RENAL FAILURE UNSPECIFIED 11/12/2011 STEPHAN CORDERO APRN 58 6 RENAL FAILURE UNSPECIFIED 11/12/2011 YUE DUENAS DO 586 RENAL FAILURE UNSPECIFIED 11/12/2011 RITO PHD, KAIDEN Clifford 586 RENAL FAILURE UNSPECIFIED 11/12/2011 RITO CUMMINGS, KAIDEN Clifford 586 RENAL FAILURE UNSPECIFIED 11/12/2011 RITO CUMMINGS, KAIDEN Clifford 586 RENAL FAILURE UNSPECIFIED 11/12/2011 STEPHAN CORDERO APRN 58 6 RENAL FAILURE UNSPECIFIED 11/12/2011 STEPHAN CORDERO APRN 58 6 RENAL FAILURE UNSPECIFIED 11/12/2011 STEPHAN CORDERO APRN 58 6 RENAL FAILURE UNSPECIFIED 11/12/2011 STEPHAN CORDERO APRN 58 6 RENAL FAILURE UNSPECIFIED 11/12/2011 YUE DUENAS DO K 586 RENAL FAILURE UNSPECIFIED 11/19/2011 719.47 RENNY T PAIN 11/19/2011 V76.51 COL ON CANCER SCREENING 11/19/2011 719.47 RENNY T PAIN 11/19/2011 V76.51 COL ON CANCER SCREENING 11/19/2011 YUE DUENAS DO 719.47 FOOT PAIN 11/19/2011 YUE DUENAS DO V76.51 COLON CANCER SCREENING 11/19/2011 719.47 RENNY T PAIN 11/19/2011 V76.51 COL ON CANCER SCREENING 11/19/2011 YUE DUENAS DO 719.47 FOOT PAIN 11/19/2011 YUE DUENAS DO V76.51 COLON CANCER SCREENING 11/19/2011 719.47 RENNY T PAIN 11/19/2011 V76.51 COL ON CANCER SCREENING 11/19/2011 719.47 RENNY T PAIN 11/19/2011 V76.51 COL ON CANCER SCREENING 11/19/2011 719.47 RENNY T PAIN 11/19/2011 V76.51 COL ON CANCER SCREENING 11/19/2011 719.47 RENNY T PAIN 11/19/2011 V76.51 COL ON CANCER SCREENING 11/19/2011 719.47 RENNY T PAIN 11/19/2011 V76.51 COL ON CANCER SCREENING 11/19/2011 719.47 RENNY T PAIN 11/19/2011 V76.51 COL ON CANCER SCREENING 11/19/2011 719.47 RENNY T PAIN 11/19/2011 V76.51 COL ON CANCER SCREENING 11/19/2011 719.47 RENNY T PAIN 11/19/2011 V76.51 COL ON CANCER SCREENING 11/19/2011 719.47 RENNY T PAIN 11/19/2011 V76.51 COL ON CANCER SCREENING 11/19/2011 719.47 RENNY T PAIN 11/19/2011 V76.51 COL ON CANCER SCREENING 11/19/2011 DUENAS DO, YUE K 719.47 FOOT PAIN 11/19/2011 DUENAS DO, YUE K V76.51 COLON CANCER SCREENING 11/19/2011 DUENAS DO, YUE K 719.47 FOOT PAIN 11/19/2011 DUENAS DO, YUE K V76.51 COLON CANCER SCREENING 11/19/2011 DUENAS DO, YUE K 719.47 FOOT PAIN 11/19/2011 DUENAS DO, YUE K V76.51 COLON CANCER SCREENING 11/19/2011 STEPHAN CORDERO APRN 719.47 FOOT PAIN 11/19/2011 STEPHAN CORDERO APRN V76.51 COLON CANCER SCREENING 11/19/2011 VANDANA ARENAS, RAMIN Morin 719.47 FOOT PAIN 11/19/2011 RAMIN [place] MD V76.51 COLON CANCER SCREENING 11/19/2011 STEPHAN CORDERO APRN 719.47 FOOT PAIN 11/19/2011 STEPHAN CORDERO APRN V76.51 COLON CANCER SCREENING 11/19/2011 STEPHAN CORDERO APRN 719.47 FOOT PAIN 11/19/2011 STEPHAN CORDERO APRN V76.51 COLON CANCER SCREENING 11/19/2011 DUENAS DOJAREDA K 719.47 FOOT PAIN 11/19/2011 DUENAS DOJAREDA K V76.51 COLON CANCER SCREENING 11/19/2011 STEPHAN CORDERO APRN 719.47 FOOT PAIN 11/19/2011 STEPHAN CORDERO APRN V76.51 COLON CANCER SCREENING 11/19/2011 STEPHAN CORDERO APRN 719.47 FOOT PAIN 11/19/2011 STEPHAN CORDERO APRN V76.51 COLON CANCER SCREENING 11/19/2011 DUENAS DO, YUE K 719.47 FOOT PAIN 11/19/2011 DUENAS DO, YUE K V76.51 COLON CANCER SCREENING 11/19/2011 CAITLIN QUESADA APRN 719.47 FOOT PAIN 11/19/2011 CAITLIN QUESADA APRN A V76.51 COLON CANCER SCREENING 11/19/2011 DIPAKCAITLIN CONNER APRN A 719.47 FOOT PAIN 11/19/2011 DIPAKCAITLIN CONNER APRN A V76.51 COLON CANCER SCREENING 11/19/2011 DUENAS DO, YUE K 719.47 FOOT PAIN 11/19/2011 DUENAS DO, YUE K V76.51 COLON CANCER SCREENING 11/19/2011 STEPHAN CORDERO APRN 719.47 FOOT PAIN 11/19/2011 STEPHAN CORDERO APRN V76.51 COLON CANCER SCREENING 11/19/2011 DUENAS DO, YUE K 719.47 FOOT PAIN 11/19/2011 DUENAS DO, YUE K V76.51 COLON CANCER SCREENING 11/19/2011 STEPHAN CORDERO APRN 719.47 FOOT PAIN 11/19/2011 STEPHAN CORDERO APRN V76.51 COLON CANCER SCREENING 11/19/2011 STEPHAN CORDERO APRN 719.47 FOOT PAIN 11/19/2011 STEPHAN CORDERO APRN V76.51 COLON CANCER SCREENING 11/19/2011 STEPHAN CORDERO APRN 719.47 FOOT PAIN 11/19/2011 STEPHAN CORDERO APRN V76.51 COLON CANCER SCREENING 11/19/2011 DUENAS DO, YEU K 719.47 FOOT PAIN 11/19/2011 DUENAS DO, YUE K V76.51 COLON CANCER SCREENING 11/19/2011 RITO CUMMINGS, KAIDEN Clifford 719.47 FOOT PAIN 11/19/2011 RITO CUMMINGS, KAIDEN Clifford V76.51 COLON CANCER SCREENING 11/19/2011 RITO CUMMINGS, KAIDEN Clifford 719.47 FOOT PAIN 11/19/2011 IRTO CUMMINGS, KAIDEN Clifford V76.51 COLON CANCER SCREENING 11/19/2011 RITO CUMMINGS, KAIDEN Clifford 719.47 FOOT PAIN 11/19/2011 RITO CUMMINGS, KAIDEN Clifford V76.51 COLON CANCER SCREENING 11/19/2011 STEPHAN CORDERO APRN 719.47 FOOT PAIN 11/19/2011 STEPHAN CORDERO APRN V76.51 COLON CANCER SCREENING 11/19/2011 STEPHAN CORDERO APRN 719.47 FOOT PAIN 11/19/2011 STEPHAN CORDERO APRN V76.51 COLON CANCER SCREENING 11/19/2011 STEPHAN CORDERO APRN 719.47 FOOT PAIN 11/19/2011 STEPHAN CORDERO APRN V76.51 COLON CANCER SCREENING 11/19/2011 STEPHAN CORDERO APRN 719.47 FOOT PAIN 11/19/2011 STEPHAN CORDERO APRN V76.51 COLON CANCER SCREENING 11/19/2011 YULISSA DOYUE K 719.47 FOOT PAIN 11/19/2011 DUENAS DOJAREDA K V76.51 COLON CANCER SCREENING 01/29/2012 266.2 OTHE R B-COMPLEX DEFICIENCIES 01/29/2012 266.2 OTHE R B-COMPLEX DEFICIENCIES 01/29/2012 DUENAS DO, YUE K 266.2 OTHER B-COMPLEX DEFICIENCIES 01/29/2012 266.2 OTHE R B-COMPLEX DEFICIENCIES 01/29/2012 DUENAS DO, YUE K 266.2 OTHER B-COMPLEX DEFICIENCIES 01/29/2012 266.2 OTHE R B-COMPLEX DEFICIENCIES 01/29/2012 266.2 OTHE R B-COMPLEX DEFICIENCIES 01/29/2012 266.2 OTHE R B-COMPLEX DEFICIENCIES 01/29/2012 266.2 OTHE R B-COMPLEX DEFICIENCIES 01/29/2012 266.2 OTHE R B-COMPLEX DEFICIENCIES 01/29/2012 266.2 OTHE R B-COMPLEX DEFICIENCIES 01/29/2012 266.2 OTHE R B-COMPLEX DEFICIENCIES 01/29/2012 266.2 OTHE R B-COMPLEX DEFICIENCIES 01/29/2012 266.2 OTHE R B-COMPLEX DEFICIENCIES 01/29/2012 266.2 OTHE R B-COMPLEX DEFICIENCIES 01/29/2012 DUENAS DO, YUE K 266.2 OTHER B-COMPLEX DEFICIENCIES 01/29/2012 DUENAS DO, YUE K 266.2 OTHER B-COMPLEX DEFICIENCIES 01/29/2012 DUENAS DO, YUE K 266.2 OTHER B-COMPLEX DEFICIENCIES 01/29/2012 STEPHAN CORDERO APRN 26 6.2 OTHER B-COMPLEX DEFICIENCIES 01/29/2012 VANDANA ARENAS, RAMIN Morin 26 6.2 OTHER B-COMPLEX DEFICIENCIES 01/29/2012 STEPHAN CORDERO APRN 26 6.2 OTHER B-COMPLEX DEFICIENCIES 01/29/2012 STEPHAN CORDERO APRN 26 6.2 OTHER B-COMPLEX DEFICIENCIES 01/29/2012 DUENAS DO, YUE K 266.2 OTHER B-COMPLEX DEFICIENCIES 01/29/2012 STEPHAN CORDERO APRN 26 6.2 OTHER B-COMPLEX DEFICIENCIES 01/29/2012 STEPHAN CORDERO APRN 26 6.2 OTHER B-COMPLEX DEFICIENCIES 01/29/2012 DUENAS DO, YUE K 266.2 OTHER B-COMPLEX DEFICIENCIES 01/29/2012 DIPAK APRN, CAITLIN A 26 6.2 OTHER B-COMPLEX DEFICIENCIES 01/29/2012 DIPAK APRN, CAITLIN A 26 6.2 OTHER B-COMPLEX DEFICIENCIES 01/29/2012 DUENAS DO, YUE K 266.2 OTHER B-COMPLEX DEFICIENCIES 01/29/2012 STEPHAN CORDERO APRN T 26 6.2 OTHER B-COMPLEX DEFICIENCIES 01/29/2012 DUENAS DO, YUE K 266.2 OTHER B-COMPLEX DEFICIENCIES 01/29/2012 STEPHAN CORDERO APRN T 26 6.2 OTHER B-COMPLEX DEFICIENCIES 01/29/2012 STEPHAN CODRERO APRN 26 6.2 OTHER B-COMPLEX DEFICIENCIES 01/29/2012 STEPHAN CORDERO APRN 26 6.2 OTHER B-COMPLEX DEFICIENCIES 01/29/2012 DUENAS DO, YUE K 266.2 OTHER B-COMPLEX DEFICIENCIES 01/29/2012 RITO CUMMINGS, KAIDEN Clifford 266.2 OTHER B-COMPLEX DEFICIENCIES 01/29/2012 RITO CUMMINGS, KAIDEN Clifford 266.2 OTHER B-COMPLEX DEFICIENCIES 01/29/2012 RITO CUMMINGS, KAIDEN Clifford 266.2 OTHER B-COMPLEX DEFICIENCIES 01/29/2012 STEPHAN CORDERO APRN 26 6.2 OTHER B-COMPLEX DEFICIENCIES 01/29/2012 STEPHAN CORDERO APRN 26 6.2 OTHER B-COMPLEX DEFICIENCIES 01/29/2012 STEPHAN CORDERO APRN 26 6.2 OTHER B-COMPLEX DEFICIENCIES 01/29/2012 STEPHAN CORDERO APRN 26 6.2 OTHER B-COMPLEX DEFICIENCIES 01/29/2012 DUENAS DO, YUE K 266.2 OTHER B-COMPLEX DEFICIENCIES 03/30/2012 724.5 BACK PAIN, GENERAL 03/30/2012 724.5 BACK PAIN, GENERAL 03/30/2012 DUENAS DO, YUE K 724.5 BACK PAIN, GENERAL 03/30/2012 724.5 BACK PAIN, GENERAL 03/30/2012 DUENAS DO, YUE K 724.5 BACK PAIN, GENERAL 03/30/2012 724.5 BACK PAIN, GENERAL 03/30/2012 724.5 BACK PAIN, GENERAL 03/30/2012 724.5 BACK PAIN, GENERAL 03/30/2012 724.5 BACK PAIN, GENERAL 03/30/2012 724.5 BACK PAIN, GENERAL 03/30/2012 724.5 BACK PAIN, GENERAL 03/30/2012 724.5 BACK PAIN, GENERAL 03/30/2012 724.5 BACK PAIN, GENERAL 03/30/2012 724.5 BACK PAIN, GENERAL 03/30/2012 724.5 BACK PAIN, GENERAL 03/30/2012 DUENAS DO, YUE K 724.5 BACK PAIN, GENERAL 03/30/2012 DUENAS DO, YUE K 724.5 BACK PAIN, GENERAL 03/30/2012 DUENAS DO, YUE K 724.5 BACK PAIN, GENERAL 03/30/2012 STEPHAN CORDERO APRN T 72 4.5 BACK PAIN, GENERAL 03/30/2012 VANDANA ARENAS, RAMIN Morin 72 4.5 BACK PAIN, GENERAL 03/30/2012 STEPHAN CORDERO APRN T 72 4.5 BACK PAIN, GENERAL 03/30/2012 STEPHAN CORDERO APRN T 72 4.5 BACK PAIN, GENERAL 03/30/2012 DUENAS DO YUE K 724.5 BACK PAIN, GENERAL 03/30/2012 GIL CRAIG STEPHAN T 72 4.5 BACK PAIN, GENERAL 03/30/2012 GIL CRAIG STEPHAN T 72 4.5 BACK PAIN, GENERAL 03/30/2012 DUENAS DO, YUE K 724.5 BACK PAIN, GENERAL 03/30/2012 DIPAK EARLY CHILDHOOD, CAITLIN A 72 4.5 BACK PAIN, GENERAL 03/30/2012 DIPAK EARLY CHILDHOOD, CAITLIN A 72 4.5 BACK PAIN, GENERAL 03/30/2012 DUENAS DO, YUE K 724.5 BACK PAIN, GENERAL 03/30/2012 GIL CRAIG STEPHAN T 72 4.5 BACK PAIN, GENERAL 03/30/2012 DUENAS DO, YUE K 724.5 BACK PAIN, GENERAL 03/30/2012 GIL CRAIG STEPHAN T 72 4.5 BACK PAIN, GENERAL 03/30/2012 STEPHAN CORDERO APRN T 72 4.5 BACK PAIN, GENERAL 03/30/2012 GIL CRAIG STEPHAN T 72 4.5 BACK PAIN, GENERAL 03/30/2012 DUENAS DO, YUE K 724.5 BACK PAIN, GENERAL 03/30/2012 RITO CUMMINGS, KAIDEN Clifford 724.5 BACK PAIN, GENERAL 03/30/2012 RITO CUMMINGS, KAIDEN Clifford 724.5 BACK PAIN, GENERAL 03/30/2012 RITO PHD, KAIDEN Clifford 724.5 BACK PAIN, GENERAL 03/30/2012 STEPHAN CORDERO APRN 72 4.5 BACK PAIN, GENERAL 03/30/2012 STEPHAN CORDERO APRN 72 4.5 BACK PAIN, GENERAL 03/30/2012 STEPHAN CORDERO APRN 72 4.5 BACK PAIN, GENERAL 03/30/2012 STEPHAN CORDERO APRN 72 4.5 BACK PAIN, GENERAL 03/30/2012 DUENAS DOYUE 724.5 BACK PAIN, GENERAL 04/06/2012 700 CALLUS /CORN 04/06/2012 700 CALLUS /CORN 04/06/2012 DUENAS DO, YUE K 700 CALLUS/CORN 04/06/2012 700 CALLUS /CORN 04/06/2012 DUENAS DO, YUE K 700 CALLUS/CORN 04/06/2012 700 CALLUS /CORN 04/06/2012 700 CALLUS /CORN 04/06/2012 700 CALLUS /CORN 04/06/2012 700 CALLUS /CORN 04/06/2012 700 CALLUS /CORN 04/06/2012 700 CALLUS /CORN 04/06/2012 700 CALLUS /CORN 04/06/2012 700 CALLUS /CORN 04/06/2012 700 CALLUS /CORN 04/06/2012 700 CALLUS /CORN 04/06/2012 DUENAS DO, YUE K 700 CALLUS/CORN 04/06/2012 DUENAS DO, YUE K 700 CALLUS/CORN 04/06/2012 DUENAS DO, YUE K 700 CALLUS/CORN 04/06/2012 STEPHAN CORDERO APRN 70 0 CALLUS/CORN 04/06/2012 VANDANA ARENAS, RAMIN Morin 70 0 CALLUS/CORN 04/06/2012 STEPHAN CORDERO APRN 70 0 CALLUS/CORN 04/06/2012 STEPHAN CORDERO APRN 70 0 CALLUS/CORN 04/06/2012 YUE DUENAS DO K 700 CALLUS/CORN 04/06/2012 STEPHAN CORDERO APRN 70 0 CALLUS/CORN 04/06/2012 STEPHAN CORDERO APRN 70 0 CALLUS/CORN 04/06/2012 YULISSA DO YUE K 700 CALLUS/CORN 04/06/2012 CAITLIN QUESADA APRN 70 0 CALLUS/CORN 04/06/2012 CAITLIN QUESADA APRN A 70 0 CALLUS/CORN 04/06/2012 YULISSA DO YUE K 700 CALLUS/CORN 04/06/2012 STEPHAN CORDERO APRN 70 0 CALLUS/CORN 04/06/2012 YUE DUENAS DO 700 CALLUS/CORN 04/06/2012 STEPHAN CORDERO APRN 70 0 CALLUS/CORN 04/06/2012 STEPHAN CORDERO APRN 70 0 CALLUS/CORN 04/06/2012 STEPHAN CORDERO APRN 70 0 CALLUS/CORN 04/06/2012 YUE DUENAS DO 700 CALLUS/CORN 04/06/2012 RITO PHD, KAIDEN Clifford 700 CALLUS/CORN 04/06/2012 RITO PHD, KAIDEN Clifford 700 CALLUS/CORN 04/06/2012 RITO PHD, KAIDEN Clifford 700 CALLUS/CORN 04/06/2012 STEPHAN CORDERO APRN 70 0 CALLUS/CORN 04/06/2012 STEPHAN CORDERO APRN 70 0 CALLUS/CORN 04/06/2012 STEPHAN CORDERO APRN 70 0 CALLUS/CORN 04/06/2012 STEPHAN CORDERO APRN 70 0 CALLUS/CORN 04/06/2012 YUE DUENAS DO K 700 CALLUS/CORN 04/16/2012 355.6 NEUROMA/METATARSALGIA 04/16/2012 715.27 DJD -SECONDARY 04/16/2012 355.6 NEUROMA/METATARSALGIA 04/16/2012 715.27 DJD -SECONDARY 04/16/2012 YUE DUENAS DO 355.6 NEUROMA/METATARSALGIA 04/16/2012 YUE DUENAS DO 715.27 DJD-SECONDARY 04/16/2012 355.6 NEUROMA/METATARSALGIA 04/16/2012 715.27 DJD -SECONDARY 04/16/2012 YUE DUENAS DO 355.6 NEUROMA/METATARSALGIA 04/16/2012 YUE DUENAS DO 715.27 DJD-SECONDARY 04/16/2012 355.6 NEUROMA/METATARSALGIA 04/16/2012 715.27 DJD -SECONDARY 04/16/2012 355.6 NEUROMA/METATARSALGIA 04/16/2012 715.27 DJD -SECONDARY 04/16/2012 355.6 NEUROMA/METATARSALGIA 04/16/2012 715.27 DJD -SECONDARY 04/16/2012 355.6 NEUROMA/METATARSALGIA 04/16/2012 715.27 DJD -SECONDARY 04/16/2012 355.6 NEUROMA/METATARSALGIA 04/16/2012 715.27 DJD -SECONDARY 04/16/2012 355.6 NEUROMA/METATARSALGIA 04/16/2012 715.27 DJD -SECONDARY 04/16/2012 355.6 NEUROMA/METATARSALGIA 04/16/2012 715.27 DJD -SECONDARY 04/16/2012 355.6 NEUROMA/METATARSALGIA 04/16/2012 715.27 DJD -SECONDARY 04/16/2012 355.6 NEUROMA/METATARSALGIA 04/16/2012 715.27 DJD -SECONDARY 04/16/2012 355.6 NEUROMA/METATARSALGIA 04/16/2012 715.27 DJD -SECONDARY 04/16/2012 DUENAS DO, YUE K 355.6 NEUROMA/METATARSALGIA 04/16/2012 DUENAS DO, YEU K 715.27 DJD-SECONDARY 04/16/2012 DUENAS DO YUE K 355.6 NEUROMA/METATARSALGIA 04/16/2012 DUENAS DO, YUE K 715.27 DJD-SECONDARY 04/16/2012 DUENAS DO YUE K 355.6 NEUROMA/METATARSALGIA 04/16/2012 DUENAS DO, YUE K 715.27 DJD-SECONDARY 04/16/2012 STEPHAN CORDERO APRN 35 5.6 NEUROMA/METATARSALGIA 04/16/2012 STEPHAN CORDERO APRN 715.27 DJD-SECONDARY 04/16/2012 VANDANA ARENAS, RAMIN M 35 5.6 NEUROMA/METATARSALGIA 04/16/2012 VANDANA ARENAS, RAMIN Morin 715.27 DJD-SECONDARY 04/16/2012 STEPHAN CORDERO APRN 35 5.6 NEUROMA/METATARSALGIA 04/16/2012 STEPHAN CORDERO APRN 715.27 DJD-SECONDARY 04/16/2012 STEPHAN CORDERO APRN 35 5.6 NEUROMA/METATARSALGIA 04/16/2012 STEPHAN CORDERO APRN 715.27 DJD-SECONDARY 04/16/2012 JARED DUENAS DOA K 355.6 NEUROMA/METATARSALGIA 04/16/2012 YULISSA ROSAS YUE K 715.27 DJD-SECONDARY 04/16/2012 STEPHAN CORDERO APRN 35 5.6 NEUROMA/METATARSALGIA 04/16/2012 STEPHAN CORDERO APRN 715.27 DJD-SECONDARY 04/16/2012 STEPHAN CORDERO APRN 35 5.6 NEUROMA/METATARSALGIA 04/16/2012 STEPHAN CORDERO APRN 715.27 DJD-SECONDARY 04/16/2012 DUENAS DOYUE K 355.6 NEUROMA/METATARSALGIA 04/16/2012 DUENAS DO, YUE K 715.27 DJD-SECONDARY 04/16/2012 DIPAK EARLY CHILDHOOD, CAITLIN A 35 5.6 NEUROMA/METATARSALGIA 04/16/2012 DIPAK EARLY CHILDHOOD, CAITLIN A 715.27 DJD-SECONDARY 04/16/2012 DIPAK EARLY CHILDHOOD, CAITLIN A 35 5.6 NEUROMA/METATARSALGIA 04/16/2012 DIPAK EARLY CHILDHOOD, CAITLIN A 715.27 DJD-SECONDARY 04/16/2012 YULISSA ROSAS YUE K 355.6 NEUROMA/METATARSALGIA 04/16/2012 JARED DUENAS DOA K 715.27 DJD-SECONDARY 04/16/2012 STEPHAN CORDERO APRN 35 5.6 NEUROMA/METATARSALGIA 04/16/2012 STEPHAN CORDERO APRN 715.27 DJD-SECONDARY 04/16/2012 JARED DUENAS DOA K 355.6 NEUROMA/METATARSALGIA 04/16/2012 JARED DUENAS DOA K 715.27 DJD-SECONDARY 04/16/2012 STEPHAN CORDERO APRN 35 5.6 NEUROMA/METATARSALGIA 04/16/2012 STEPHAN CORDERO APRN 715.27 DJD-SECONDARY 04/16/2012 STEPHAN CORDERO APRN 35 5.6 NEUROMA/METATARSALGIA 04/16/2012 STEPHAN CORDERO APRN 715.27 DJD-SECONDARY 04/16/2012 STEPHAN CORDERO APRN T 35 5.6 NEUROMA/METATARSALGIA 04/16/2012 STEPHAN CORDERO APRN T 715.27 DJD-SECONDARY 04/16/2012 YULISSA ROSAS YUE K 355.6 NEUROMA/METATARSALGIA 04/16/2012 DUENAS DO YUE K 715.27 DJD-SECONDARY 04/16/2012 RITO PHD, KAIDEN Clifford 355.6 NEUROMA/METATARSALGIA 04/16/2012 RITO PHD, KAIDEN Clifford 715.27 DJD-SECONDARY 04/16/2012 RITO PHD, KAIDEN Clifford 355.6 NEUROMA/METATARSALGIA 04/16/2012 RITO CUMMINGS, KAIDEN Clifford 715.27 DJD-SECONDARY 04/16/2012 RITO CUMMINGS, KAIDEN Cliffodr 355.6 NEUROMA/METATARSALGIA 04/16/2012 RITO CUMMINGS, KAIDEN Clifford 715.27 DJD-SECONDARY 04/16/2012 STEPHAN CORDERO APRN T 35 5.6 NEUROMA/METATARSALGIA 04/16/2012 STEPHAN CORDERO APRN T 715.27 DJD-SECONDARY 04/16/2012 STEPHAN CORDERO APRN T 35 5.6 NEUROMA/METATARSALGIA 04/16/2012 STEPHAN CORDERO APRN T 715.27 DJD-SECONDARY 04/16/2012 STEPHAN CORDERO APRN T 35 5.6 NEUROMA/METATARSALGIA 04/16/2012 STEPHAN CORDERO APRN T 715.27 DJD-SECONDARY 04/16/2012 STEPHAN CORDERO APRN T 35 5.6 NEUROMA/METATARSALGIA 04/16/2012 STEPHAN CORDERO APRN T 715.27 DJD-SECONDARY 04/16/2012 YUE DUENAS DO 355.6 NEUROMA/METATARSALGIA 04/16/2012 YUE DUENAS DO 715.27 DJD-SECONDARY 05/14/2012 703.8 ONYC HOCRYPTOSIS 05/14/2012 733.99 HYP ERTROPHIC MET HEAD 05/14/2012 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.8 ONYC HOCRYPTOSIS 05/14/2012 733.99 HYP ERTROPHIC MET HEAD 05/14/2012 YUE DUENAS DO 703.8 ONYCHOCRYPTOSIS 05/14/2012 YUE DUENAS DO 733.99 HYPERTROPHIC MET HEAD 05/14/2012 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.8 ONYC HOCRYPTOSIS 05/14/2012 733.99 HYP ERTROPHIC MET HEAD 05/14/2012 DUENAS DOJAREDA K 703.8 ONYCHOCRYPTOSIS 05/14/2012 DUENAS DOYUE K 733.99 HYPERTROPHIC MET HEAD 05/14/2012 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.8 ONYC HOCRYPTOSIS 05/14/2012 733.99 HYP ERTROPHIC MET HEAD 05/14/2012 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.8 ONYC HOCRYPTOSIS 05/14/2012 733.99 HYP ERTROPHIC MET HEAD 05/14/2012 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.8 ONYC HOCRYPTOSIS 05/14/2012 733.99 HYP ERTROPHIC MET HEAD 05/14/2012 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.8 ONYC HOCRYPTOSIS 05/14/2012 733.99 HYP ERTROPHIC MET HEAD 05/14/2012 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.8 ONYC HOCRYPTOSIS 05/14/2012 733.99 HYP ERTROPHIC MET HEAD 05/14/2012 703.8 ONYC HOCRYPTOSIS 05/14/2012 733.99 HYP ERTROPHIC MET HEAD 05/14/2012 703.8 ONYC HOCRYPTOSIS 05/14/2012 733.99 HYP ERTROPHIC MET HEAD 05/14/2012 703.8 ONYC HOCRYPTOSIS 05/14/2012 733.99 HYP ERTROPHIC MET HEAD 05/14/2012 703.8 ONYC HOCRYPTOSIS 05/14/2012 733.99 HYP ERTROPHIC MET HEAD 05/14/2012 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.8 ONYC HOCRYPTOSIS 05/14/2012 733.99 HYP ERTROPHIC MET HEAD 05/14/2012 DUENAS DO, YUE K 703.8 ONYCHOCRYPTOSIS 05/14/2012 DUENAS DO, YUE K 733.99 HYPERTROPHIC MET HEAD 05/14/2012 DUENAS DO, YUE K 703.8 ONYCHOCRYPTOSIS 05/14/2012 DUENAS DO, YUE K 733.99 HYPERTROPHIC MET HEAD 05/14/2012 DUENAS DO, YUE K 703.8 ONYCHOCRYPTOSIS 05/14/2012 DUENAS DO, YUE K 733.99 HYPERTROPHIC MET HEAD 05/14/2012 STEPHAN CORDERO APRN 70 3.8 ONYCHOCRYPTOSIS 05/14/2012 STEPHAN CORDERO APRN 733.99 HYPERTROPHIC MET HEAD 05/14/2012 RAMIN [place] MD 70 3.8 ONYCHOCRYPTOSIS 05/14/2012 RAMIN [place] MD 733.99 HYPERTROPHIC MET HEAD 05/14/2012 STEPHAN CORDERO APRN 70 3.8 ONYCHOCRYPTOSIS 05/14/2012 STEPHAN CORDERO APRN 733.99 HYPERTROPHIC MET HEAD 05/14/2012 STEPHAN CORDERO APRN 70 3.8 ONYCHOCRYPTOSIS 05/14/2012 STEPHAN CORDERO APRN 733.99 HYPERTROPHIC MET HEAD 05/14/2012 DUENAS DO, YUE K 703.8 ONYCHOCRYPTOSIS 05/14/2012 DUENAS DO, YUE K 733.99 HYPERTROPHIC MET HEAD 05/14/2012 STEPHAN CORDERO APRN 70 3.8 ONYCHOCRYPTOSIS 05/14/2012 STEPHAN CORDERO APRN 733.99 HYPERTROPHIC MET HEAD 05/14/2012 STEPHAN CORDERO APRN T 70 3.8 ONYCHOCRYPTOSIS 05/14/2012 STEPHAN CORDERO APRN T 733.99 HYPERTROPHIC MET HEAD 05/14/2012 DUENAS DO, YUE K 703.8 ONYCHOCRYPTOSIS 05/14/2012 DUENAS DO, YUE K 733.99 HYPERTROPHIC MET HEAD 05/14/2012 DIPAK EARLY CHILDHOOD, CAITLIN A 70 3.8 ONYCHOCRYPTOSIS 05/14/2012 DIPAK EARLY CHILDHOOD, CAITLIN A 733.99 HYPERTROPHIC MET HEAD 05/14/2012 [facility] EARLY CHILDHOOD, CAITLIN A 70 3.8 ONYCHOCRYPTOSIS 05/14/2012 DIPAK EARLY CHILDHOOD, CAITLIN A 733.99 HYPERTROPHIC MET HEAD 05/14/2012 DUENAS DO, YUE K 703.8 ONYCHOCRYPTOSIS 05/14/2012 DUENAS DO, YUE K 733.99 HYPERTROPHIC MET HEAD 05/14/2012 STEPHAN CORDERO APRN 70 3.8 ONYCHOCRYPTOSIS 05/14/2012 STEPHAN CORDERO APRN 733.99 HYPERTROPHIC MET HEAD 05/14/2012 DUENAS DO, YUE K 703.8 ONYCHOCRYPTOSIS 05/14/2012 DUENAS DO, YUE K 733.99 HYPERTROPHIC MET HEAD 05/14/2012 STEPHAN CORDERO APRN 70 3.8 ONYCHOCRYPTOSIS 05/14/2012 STEPHAN CORDERO APRN 733.99 HYPERTROPHIC MET HEAD 05/14/2012 STEPHAN CORDERO APRN 70 3.8 ONYCHOCRYPTOSIS 05/14/2012 STEPHAN CORDERO APRN 733.99 HYPERTROPHIC MET HEAD 05/14/2012 STEPHAN CORDERO APRN 70 3.8 ONYCHOCRYPTOSIS 05/14/2012 STEPHAN CORDERO APRN 733.99 HYPERTROPHIC MET HEAD 05/14/2012 DUENAS DO, YUE K 703.8 ONYCHOCRYPTOSIS 05/14/2012 DUENAS DO, YUE K 733.99 HYPERTROPHIC MET HEAD 05/14/2012 RITO PHD, KAIDEN Clifford 703.8 ONYCHOCRYPTOSIS 05/14/2012 RITO PHD, KAIDEN Clifford 733.99 HYPERTROPHIC MET HEAD 05/14/2012 RITO PHD, KAIDEN Clifford 703.8 ONYCHOCRYPTOSIS 05/14/2012 RITO PHD, KAIDEN Clifford 733.99 HYPERTROPHIC MET HEAD 05/14/2012 RITO CUMMINGS, KAIDEN Clifford 703.8 ONYCHOCRYPTOSIS 05/14/2012 RITO CUMMINGS, KAIDEN Clifford 733.99 HYPERTROPHIC MET HEAD 05/14/2012 STEPHAN CORDERO APRN T 70 3.8 ONYCHOCRYPTOSIS 05/14/2012 STEPHAN CORDERO APRN T 733.99 HYPERTROPHIC MET HEAD 05/14/2012 GIL CRAIG STEPHAN T 70 3.8 ONYCHOCRYPTOSIS 05/14/2012 STEPHAN CORDERO APRN T 733.99 HYPERTROPHIC MET HEAD 05/14/2012 STEPHAN CORDERO APRN T 70 3.8 ONYCHOCRYPTOSIS 05/14/2012 STEPHAN CORDERO APRN T 733.99 HYPERTROPHIC MET HEAD 05/14/2012 STEPHAN CORDERO APRN T 70 3.8 ONYCHOCRYPTOSIS 05/14/2012 STEPHAN CORDERO APRN T 733.99 HYPERTROPHIC MET HEAD 05/14/2012 YUE DUENAS DO 703.8 ONYCHOCRYPTOSIS 05/14/2012 YUE DUENAS DO 733.99 HYPERTROPHIC MET HEAD 07/13/2012 719.41 MAREK ULDER JOINT PAIN 07/13/2012 719.41 MAREK ULDER JOINT PAIN 07/13/2012 YUE DUENAS DO 719.41 SHOULDER JOINT PAIN 07/13/2012 719.41 MAREK ULDER JOINT PAIN 07/13/2012 YUE DUENAS DO 719.41 SHOULDER JOINT PAIN 07/13/2012 719.41 MAREK ULDER JOINT PAIN 07/13/2012 719.41 MAREK ULDER JOINT PAIN 07/13/2012 719.41 MAREK ULDER JOINT PAIN 07/13/2012 719.41 MAREK ULDER JOINT PAIN 07/13/2012 719.41 MAREK ULDER JOINT PAIN 07/13/2012 719.41 MAREK ULDER JOINT PAIN 07/13/2012 719.41 MAREK ULDER JOINT PAIN 07/13/2012 719.41 MAREK ULDER JOINT PAIN 07/13/2012 719.41 MAREK ULDER JOINT PAIN 07/13/2012 719.41 MAREK ULDER JOINT PAIN 07/13/2012 DUENAS DO, YUE K 719.41 SHOULDER JOINT PAIN 07/13/2012 DUENAS DO, YEU K 719.41 SHOULDER JOINT PAIN 07/13/2012 DUENAS DO, YUE K 719.41 SHOULDER JOINT PAIN 07/13/2012 STEPHAN CORDERO APRN T 719.41 SHOULDER JOINT PAIN 07/13/2012 VANDANA ARENAS, RAMIN Morin 719.41 SHOULDER JOINT PAIN 07/13/2012 STEPHAN CORDERO APRN 719.41 SHOULDER JOINT PAIN 07/13/2012 STEPHAN CORDERO APRN T 719.41 SHOULDER JOINT PAIN 07/13/2012 DUENAS DO, YUE K 719.41 SHOULDER JOINT PAIN 07/13/2012 STEPHAN CORDERO APRN T 719.41 SHOULDER JOINT PAIN 07/13/2012 STEPHAN CORDERO APRN T 719.41 SHOULDER JOINT PAIN 07/13/2012 DUENAS DO, YUE K 719.41 SHOULDER JOINT PAIN 07/13/2012 CAITLIN QUESADA APRN A 719.41 SHOULDER JOINT PAIN 07/13/2012 DIPAK CRAIG CAITLIN A 719.41 SHOULDER JOINT PAIN 07/13/2012 DUENAS DO, YUE K 719.41 SHOULDER JOINT PAIN 07/13/2012 STEPHAN CORDERO APRN T 719.41 SHOULDER JOINT PAIN 07/13/2012 DUENAS DO, YUE K 719.41 SHOULDER JOINT PAIN 07/13/2012 STEPHAN CORDERO APRN T 719.41 SHOULDER JOINT PAIN 07/13/2012 STEPHAN CORDERO APRN 719.41 SHOULDER JOINT PAIN 07/13/2012 STEPHAN CORDERO APRN T 719.41 SHOULDER JOINT PAIN 07/13/2012 DUENAS DO YUE K 719.41 SHOULDER JOINT PAIN 07/13/2012 RITO PHD, KAIDEN Clifford 719.41 SHOULDER JOINT PAIN 07/13/2012 RITO PHD, KAIDEN Clifford 719.41 SHOULDER JOINT PAIN 07/13/2012 RITO PHD, KAIDEN Clifford 719.41 SHOULDER JOINT PAIN 07/13/2012 STEPHAN CORDERO APRN 719.41 SHOULDER JOINT PAIN 07/13/2012 STEPHAN CORDERO APRN T 719.41 SHOULDER JOINT PAIN 07/13/2012 STEPHAN CORDERO APRN 719.41 SHOULDER JOINT PAIN 07/13/2012 STEPHAN CORDERO APRN 719.41 SHOULDER JOINT PAIN 08/03/2012 278.00 OBESITY 08/03/2012 V73.81 HPV SCREENING 08/03/2012 V76.10 JOAQUÍN AST CANCER SCREENING 08/03/2012 V76.2 CERV ICAL CANCER SCREENING (PAP SMEAR) 08/03/2012 YUE DUENAS DO Kristi 278.00 OBESITY 08/03/2012 YUE DUENAS DO Kristi V73.81 HPV SCREENING 08/03/2012 YUE DUENAS DO Kristi V76.10 BREAST CANCER SCREENING 08/03/2012 YUE DUENAS DO Kristi V76.2 CERVICAL CANCER SCREENING (PAP SMEAR) 08/03/2012 278.00 OBESITY 08/03/2012 V73.81 HPV SCREENING 08/03/2012 V76.10 JOAQUÍN AST CANCER SCREENING 08/03/2012 V76.2 CERV ICAL CANCER SCREENING (PAP SMEAR) 08/03/2012 YULISSA ROSAS YUE Berry 278.00 OBESITY 08/03/2012 YULISSA ROSAS YUE Berry V73.81 HPV SCREENING 08/03/2012 YUE DUENAS DO Kristi V76.10 BREAST CANCER SCREENING 08/03/2012 JARED DUENAS DOLashanda Berry V76.2 CERVICAL CANCER SCREENING (PAP SMEAR) 08/03/2012 278.00 OBESITY 08/03/2012 V73.81 HPV SCREENING 08/03/2012 V76.10 JOAQUÍN AST CANCER SCREENING 08/03/2012 V76.2 CERV ICAL CANCER SCREENING (PAP SMEAR) 08/03/2012 278.00 OBESITY 08/03/2012 V73.81 HPV SCREENING 08/03/2012 V76.10 JOAQUÍN AST CANCER SCREENING 08/03/2012 V76.2 CERV ICAL CANCER SCREENING (PAP SMEAR) 08/03/2012 278.00 OBESITY 08/03/2012 V73.81 HPV SCREENING 08/03/2012 V76.10 JOAQUÍN AST CANCER SCREENING 08/03/2012 V76.2 CERV ICAL CANCER SCREENING (PAP SMEAR) 08/03/2012 278.00 OBESITY 08/03/2012 V73.81 HPV SCREENING 08/03/2012 V76.10 JOAQUÍN AST CANCER SCREENING 08/03/2012 V76.2 CERV ICAL CANCER SCREENING (PAP SMEAR) 08/03/2012 278.00 OBESITY 08/03/2012 V73.81 HPV SCREENING 08/03/2012 V76.10 JOAQUÍN AST CANCER SCREENING 08/03/2012 V76.2 CERV ICAL CANCER SCREENING (PAP SMEAR) 08/03/2012 278.00 OBESITY 08/03/2012 V73.81 HPV SCREENING 08/03/2012 V76.10 JOAQUÍN AST CANCER SCREENING 08/03/2012 V76.2 CERV ICAL CANCER SCREENING (PAP SMEAR) 08/03/2012 278.00 OBESITY 08/03/2012 V73.81 HPV SCREENING 08/03/2012 V76.10 JOAQUÍN AST CANCER SCREENING 08/03/2012 V76.2 CERV ICAL CANCER SCREENING (PAP SMEAR) 08/03/2012 278.00 OBESITY 08/03/2012 V73.81 HPV SCREENING 08/03/2012 V76.10 JOAQUÍN AST CANCER SCREENING 08/03/2012 V76.2 CERV ICAL CANCER SCREENING (PAP SMEAR) 08/03/2012 278.00 OBESITY 08/03/2012 V73.81 HPV SCREENING 08/03/2012 V76.10 JOAQUÍN AST CANCER SCREENING 08/03/2012 V76.2 CERV ICAL CANCER SCREENING (PAP SMEAR) 08/03/2012 278.00 OBESITY 08/03/2012 V73.81 HPV SCREENING 08/03/2012 V76.10 JOAQUÍN AST CANCER SCREENING 08/03/2012 V76.2 CERV ICAL CANCER SCREENING (PAP SMEAR) 08/03/2012 DUENAS , YUE K 278.00 OBESITY 08/03/2012 DUENAS , YUE K V73.81 HPV SCREENING 08/03/2012 DUENAS DO YUE K V76.10 BREAST CANCER SCREENING 08/03/2012 DUENAS , YUE K V76.2 CERVICAL CANCER SCREENING (PAP SMEAR) 08/03/2012 DUENAS , YUE K 278.00 OBESITY 08/03/2012 DUENAS DO YUE K V73.81 HPV SCREENING 08/03/2012 YULISSA ROSAS YUE K V76.10 BREAST CANCER SCREENING 08/03/2012 DUENAS , YUE K V76.2 CERVICAL CANCER SCREENING (PAP SMEAR) 08/03/2012 DUENAS , YUE K 278.00 OBESITY 08/03/2012 DUENAS , YUE K V73.81 HPV SCREENING 08/03/2012 DUENAS DO YUE K V76.10 BREAST CANCER SCREENING 08/03/2012 DUENAS , YUE K V76.2 CERVICAL CANCER SCREENING (PAP SMEAR) 08/03/2012 STEPHAN CORDERO APRN 278.00 OBESITY 08/03/2012 STEPHAN CORDERO APRN V73.81 HPV SCREENING 08/03/2012 GIL EARLY CHILDHOOD, STEPHAN T V76.10 BREAST CANCER SCREENING 08/03/2012 STEPHAN CORDERO APRN V7 6.2 CERVICAL CANCER SCREENING (PAP SMEAR) 08/03/2012 VANDANA ARENAS, RAMIN Morin 278.00 OBESITY 08/03/2012 VANDANA ARENSA, RAMIN Morin V73.81 HPV SCREENING 08/03/2012 VANDANA ARENAS, RAMIN Morin V76.10 BREAST CANCER SCREENING 08/03/2012 VANDANA ARENAS, RAMIN Morin V7 6.2 CERVICAL CANCER SCREENING (PAP SMEAR) 08/03/2012 STEPHAN CORDERO APRN T 278.00 OBESITY 08/03/2012 STEPHAN CORDERO APRN V73.81 HPV SCREENING 08/03/2012 STEPHAN CORDERO APRN T V76.10 BREAST CANCER SCREENING 08/03/2012 STEPHAN CORDERO APRN V7 6.2 CERVICAL CANCER SCREENING (PAP SMEAR) 08/03/2012 STEPHAN CORDERO APRN T 278.00 OBESITY 08/03/2012 STEPHAN CORDERO APRN V73.81 HPV SCREENING 08/03/2012 STEPHAN CORDERO APRN V76.10 BREAST CANCER SCREENING 08/03/2012 STEPHAN CORDERO APRN V7 6.2 CERVICAL CANCER SCREENING (PAP SMEAR) 08/03/2012 DUENAS DO, YUE K 278.00 OBESITY 08/03/2012 DUENAS DO, YUE K V73.81 HPV SCREENING 08/03/2012 DEUNAS DO, YUE K V76.10 BREAST CANCER SCREENING 08/03/2012 DUENAS DO, YUE K V76.2 CERVICAL CANCER SCREENING (PAP SMEAR) 08/03/2012 STEPHAN CORDERO APRN T 278.00 OBESITY 08/03/2012 STEPHAN CORDERO APRN T V73.81 HPV SCREENING 08/03/2012 STEPHAN CORDERO APRN T V76.10 BREAST CANCER SCREENING 08/03/2012 STEPHAN CORDERO APRN V7 6.2 CERVICAL CANCER SCREENING (PAP SMEAR) 08/03/2012 STEPHAN CORDERO APRN T 278.00 OBESITY 08/03/2012 STEPHAN CORDERO APRN T V73.81 HPV SCREENING 08/03/2012 STEPHAN CORDERO APRN T V76.10 BREAST CANCER SCREENING 08/03/2012 STEPHAN CORDERO APRN V7 6.2 CERVICAL CANCER SCREENING (PAP SMEAR) 08/03/2012 DUENAS DO, YUE K 278.00 OBESITY 08/03/2012 DUENAS DO, YUE K V73.81 HPV SCREENING 08/03/2012 DUENAS DO, YUE K V76.10 BREAST CANCER SCREENING 08/03/2012 DUENAS DO, YUE K V76.2 CERVICAL CANCER SCREENING (PAP SMEAR) 08/03/2012 DIPAK MAHONEYN, CAITLIN A 278.00 OBESITY 08/03/2012 DIPAK EARLY CHILDHOOD, CAITLIN A V73.81 HPV SCREENING 08/03/2012 DIPAK EARLY CHILDHOOD, CAITLIN A V76.10 BREAST CANCER SCREENING 08/03/2012 DIPAK EARLY CHILDHOOD, CAITLIN A V7 6.2 CERVICAL CANCER SCREENING (PAP SMEAR) 08/03/2012 DIPAK EARLY CHILDHOOD, CAITLIN A 278.00 OBESITY 08/03/2012 DIPAK EARLY CHILDHOOD, CAITLIN A V73.81 HPV SCREENING 08/03/2012 DIPAK EARLY CHILDHOOD, CAITLIN A V76.10 BREAST CANCER SCREENING 08/03/2012 DIPAK MAHONEYN, CAITLIN A V7 6.2 CERVICAL CANCER SCREENING (PAP SMEAR) 08/03/2012 YULISSA ROSAS YUE K 278.00 OBESITY 08/03/2012 DUENAS DO YUE K V73.81 HPV SCREENING 08/03/2012 DUENAS , YUE K V76.10 BREAST CANCER SCREENING 08/03/2012 DUENAS , YUE K V76.2 CERVICAL CANCER SCREENING (PAP SMEAR) 08/03/2012 STEPHAN CORDERO APRN 278.00 OBESITY 08/03/2012 STEPHAN CORDERO APRN V73.81 HPV SCREENING 08/03/2012 STEPHAN CORDERO APRN V76.10 BREAST CANCER SCREENING 08/03/2012 STEPHAN CORDERO APRN V7 6.2 CERVICAL CANCER SCREENING (PAP SMEAR) 08/03/2012 YULISSA ROSAS YUE K 278.00 OBESITY 08/03/2012 YULISSA ROSAS, YUE K V73.81 HPV SCREENING 08/03/2012 DUENAS DO, YUE K V76.10 BREAST CANCER SCREENING 08/03/2012 UYLISSA ROSAS YUE K V76.2 CERVICAL CANCER SCREENING (PAP SMEAR) 08/03/2012 STEPHAN CORDERO APRN 278.00 OBESITY 08/03/2012 STEPHAN CORDERO APRN V73.81 HPV SCREENING 08/03/2012 STEPHAN CORDERO APRN V76.10 BREAST CANCER SCREENING 08/03/2012 STEPHAN CORDERO APRN V7 6.2 CERVICAL CANCER SCREENING (PAP SMEAR) 08/03/2012 STEPHAN CORDERO APRN 278.00 OBESITY 08/03/2012 STEPHAN CORDERO APRN T V73.81 HPV SCREENING 08/03/2012 STEPHAN CORDERO APRN T V76.10 BREAST CANCER SCREENING 08/03/2012 STEPHAN CORDERO APRN V7 6.2 CERVICAL CANCER SCREENING (PAP SMEAR) 08/03/2012 STEPHAN CORDERO APRN T 278.00 OBESITY 08/03/2012 STEPHAN CORDERO APRN V73.81 HPV SCREENING 08/03/2012 STEPHAN CORDERO APRN T V76.10 BREAST CANCER SCREENING 08/03/2012 STEPHAN CORDERO APRN T V7 6.2 CERVICAL CANCER SCREENING (PAP SMEAR) 08/03/2012 DUENAS DO, YUE K 278.00 OBESITY 08/03/2012 DUENAS DO, YUE K V73.81 HPV SCREENING 08/03/2012 DUENAS DO, YUE K V76.10 BREAST CANCER SCREENING 08/03/2012 DUENAS DO YUE K V76.2 CERVICAL CANCER SCREENING (PAP SMEAR) 08/03/2012 KAIDEN VERAS PHD 278.00 OBESITY 08/03/2012 KAIDEN VERAS PHD V73.81 HPV SCREENING 08/03/2012 KAIDEN VERAS PHD V76.10 BREAST CANCER SCREENING 08/03/2012 KAIDEN VERAS PHD V76.2 CERVICAL CANCER SCREENING (PAP SMEAR) 08/03/2012 KAIDEN VERAS PHD 278.00 OBESITY 08/03/2012 KAIDEN VERAS PHD V73.81 HPV SCREENING 08/03/2012 KAIDEN VERAS PHD V76.10 BREAST CANCER SCREENING 08/03/2012 KAIDEN VERAS PHD V76.2 CERVICAL CANCER SCREENING (PAP SMEAR) 08/03/2012 KAIDEN VERAS PHD 278.00 OBESITY 08/03/2012 KAIDEN VERAS PHD V73.81 HPV SCREENING 08/03/2012 KAIDEN VERAS PHD V76.10 BREAST CANCER SCREENING 08/03/2012 KAIDEN VERAS PHD V76.2 CERVICAL CANCER SCREENING (PAP SMEAR) 08/03/2012 STEPHAN CORDERO APRN 278.00 OBESITY 08/03/2012 STEPHAN CORDERO APRN V73.81 HPV SCREENING 08/03/2012 STEPHAN CORDERO APRN V76.10 BREAST CANCER SCREENING 08/03/2012 STEPHAN CORDERO APRN V7 6.2 CERVICAL CANCER SCREENING (PAP SMEAR) 08/03/2012 GIL CRAIG STEPHAN T 278.00 OBESITY 08/03/2012 GIL CRAIG, STEPHAN T V73.81 HPV SCREENING 08/03/2012 GIL CRAIG STEPHAN T V76.10 BREAST CANCER SCREENING 08/03/2012 GIL EARLY CHILDHOOD, STEPHAN T V7 6.2 CERVICAL CANCER SCREENING (PAP SMEAR) 08/03/2012 GIL CRAIG STEPHAN T 278.00 OBESITY 08/03/2012 GIL CRAIG STEPHAN T V73.81 HPV SCREENING 08/03/2012 GIL CRAIG STEPHAN T V76.10 BREAST CANCER SCREENING 08/03/2012 GIL CRAIG STEPHAN T V7 6.2 CERVICAL CANCER SCREENING (PAP SMEAR) 08/03/2012 GIL CRAIG STEPHAN T 278.00 OBESITY 08/03/2012 GIL CRAIG STEPHAN T V73.81 HPV SCREENING 08/03/2012 GIL CRAIG STEPHAN T V76.10 BREAST CANCER SCREENING 08/03/2012 GIL CRAIG STEPHAN T V7 6.2 CERVICAL CANCER SCREENING (PAP SMEAR) 10/05/2012 272.0 HYPERCHOLESTEROLEMIA 10/05/2012 272.0 HYPERCHOLESTEROLEMIA 10/05/2012 272.0 HYPERCHOLESTEROLEMIA 10/05/2012 272.0 HYPERCHOLESTEROLEMIA 10/05/2012 272.0 HYPERCHOLESTEROLEMIA 10/05/2012 272.0 HYPERCHOLESTEROLEMIA 10/05/2012 272.0 HYPERCHOLESTEROLEMIA 10/05/2012 272.0 HYPERCHOLESTEROLEMIA 10/05/2012 272.0 HYPERCHOLESTEROLEMIA 10/05/2012 272.0 HYPERCHOLESTEROLEMIA 10/05/2012 DUENAS DO, YUE K 272.0 HYPERCHOLESTEROLEMIA 10/05/2012 DUENAS DO, YUE K 272.0 HYPERCHOLESTEROLEMIA 10/05/2012 DUENAS DO, YUE K 272.0 HYPERCHOLESTEROLEMIA 10/05/2012 STEPHAN CORDERO APRN 27 2.0 HYPERCHOLESTEROLEMIA 10/05/2012 VANDANA ARENAS, RAMIN Morin 27 2.0 HYPERCHOLESTEROLEMIA 10/05/2012 STEPHAN CORDERO APRN 27 2.0 HYPERCHOLESTEROLEMIA 10/05/2012 STEPHAN CORDERO APRN 27 2.0 HYPERCHOLESTEROLEMIA 10/05/2012 DUENAS DO, YUE K 272.0 HYPERCHOLESTEROLEMIA 10/05/2012 STEPHAN CORDERO APRN 27 2.0 HYPERCHOLESTEROLEMIA 10/05/2012 STEPHAN CORDERO APRN 27 2.0 HYPERCHOLESTEROLEMIA 10/05/2012 DUENAS DO, YUE K 272.0 HYPERCHOLESTEROLEMIA 10/05/2012 CAITLIN QUESADA APRN 27 2.0 HYPERCHOLESTEROLEMIA 10/05/2012 CAITLIN QUESADA APRN 27 2.0 HYPERCHOLESTEROLEMIA 10/05/2012 DUENAS DO, YUE K 272.0 HYPERCHOLESTEROLEMIA 10/05/2012 STEPHAN CORDERO APRN 27 2.0 HYPERCHOLESTEROLEMIA 10/05/2012 DUENAS DO, YUE K 272.0 HYPERCHOLESTEROLEMIA 10/05/2012 STEPHAN CORDERO APRN 27 2.0 HYPERCHOLESTEROLEMIA 10/05/2012 STEPHAN CORDERO APRN 27 2.0 HYPERCHOLESTEROLEMIA 10/05/2012 STEPHAN CORDERO APRN 27 2.0 HYPERCHOLESTEROLEMIA 10/05/2012 YULISSA DO, YUE K 272.0 HYPERCHOLESTEROLEMIA 10/05/2012 RITO PHD, KAIDEN Clifford 272.0 HYPERCHOLESTEROLEMIA 10/05/2012 RITO PHD, KAIDEN Clifford 272.0 HYPERCHOLESTEROLEMIA 10/05/2012 RITO PHD, KAIDEN Clifford 272.0 HYPERCHOLESTEROLEMIA 10/05/2012 STEPHAN CORDERO APRN 27 2.0 HYPERCHOLESTEROLEMIA 10/05/2012 STEPHAN CORDERO APRN 27 2.0 HYPERCHOLESTEROLEMIA 10/05/2012 STEPHAN CORDERO APRN 27 2.0 HYPERCHOLESTEROLEMIA 10/05/2012 STEPHAN CORDERO APRN 27 2.0 HYPERCHOLESTEROLEMIA 10/19/2012 782.2 LOCA LIZED SUPERFICIAL SWELLING MASS OR LUMP 10/19/2012 782.2 LOCA LIZED SUPERFICIAL SWELLING MASS OR LUMP 10/19/2012 782.2 LOCA LIZED SUPERFICIAL SWELLING MASS OR LUMP 10/19/2012 782.2 LOCA LIZED SUPERFICIAL SWELLING MASS OR LUMP 10/19/2012 782.2 LOCA LIZED SUPERFICIAL SWELLING MASS OR LUMP 10/19/2012 782.2 LOCA LIZED SUPERFICIAL SWELLING MASS OR LUMP 10/19/2012 782.2 LOCA LIZED SUPERFICIAL SWELLING MASS OR LUMP 10/19/2012 782.2 LOCA LIZED SUPERFICIAL SWELLING MASS OR LUMP 10/19/2012 DUENAS DO, YUE K 782.2 LOCALIZED SUPERFICIAL SWELLING MASS OR LUMP 10/19/2012 DUENAS DO, YUE K 782.2 LOCALIZED SUPERFICIAL SWELLING MASS OR [place]MP 10/19/2012 DUENAS DO, YUE K 782.2 LOCALIZED SUPERFICIAL SWELLING M[employer] OR [place]MP 10/19/2012 STEPHAN CORDERO APRN 78 2.2 LOCALIZED SUPERFICIAL SWELLING MASS OR LUMP 10/19/2012 VANDANA ARENAS, RAMIN Morin 78 2.2 LOCALIZED SUPERFICIAL SWELLING MASS OR [place]MP 10/19/2012 STEPHAN CORDERO APRN 78 2.2 LOCALIZED SUPERFICIAL SWELLING [place] OR [place]MP 10/19/2012 STEPHAN CORDERO APRN 78 2.2 LOCALIZED SUPERFICIAL SWELLING M[employer] OR [place]MP 10/19/2012 YUE DUENAS DO K 782.2 LOCALIZED SUPERFICIAL SWELLING M[employer] OR [place]MP 10/19/2012 STEPHAN CORDERO APRN 78 2.2 LOCALIZED SUPERFICIAL SWELLING M[employer] OR [place]MP 10/19/2012 STEPHAN CORDERO APRN 78 2.2 LOCALIZED SUPERFICIAL SWELLING M[employer] OR [place]MP 10/19/2012 JARED DUENAS DOA K 782.2 LOCALIZED SUPERFICIAL SWELLING MASS OR [place]MP 10/19/2012 DIPAK CRAIG, CAITLIN A 78 2.2 LOCALIZED SUPERFICIAL SWELLING M[employer] OR [place]MP 10/19/2012 DIPAK CRAIG, CAITLIN A 78 2.2 LOCALIZED SUPERFICIAL SWELLING [place] OR [place]MP 10/19/2012 JARED DUENAS DOA K 782.2 LOCALIZED SUPERFICIAL SWELLING M[employer] OR [place]MP 10/19/2012 STEPHAN CORDERO APRN 78 2.2 LOCALIZED SUPERFICIAL SWELLING M[employer] OR [place]MP 10/19/2012 YUE DUENAS DO K 782.2 LOCALIZED SUPERFICIAL SWELLING M[employer] OR [place]MP 10/19/2012 STEPHAN CORDERO APRN 78 2.2 LOCALIZED SUPERFICIAL SWELLING M[employer] OR [place]MP 10/19/2012 STEPHAN CORDERO APRN 78 2.2 LOCALIZED SUPERFICIAL SWELLING M[employer] OR [place]MP 10/19/2012 STEPHAN CORDERO APRN 78 2.2 LOCALIZED SUPERFICIAL SWELLING M[employer] OR [place]MP 10/19/2012 YUE DUENAS DO K 782.2 LOCALIZED SUPERFICIAL SWELLING MASS OR [place]MP 10/19/2012 KAIDEN VERAS PHD 782.2 LOCALIZED SUPERFICIAL SWELLING M[employer] OR [place]MP 10/19/2012 KAIDEN VERAS PHD 782.2 LOCALIZED SUPERFICIAL SWELLING M[place] OR [place]MP 10/19/2012 KAIDEN VERAS PHD 782.2 LOCALIZED SUPERFICIAL SWELLING M[place] OR [place]MP 10/19/2012 STEPHAN CORDERO APRN 78 2.2 LOCALIZED SUPERFICIAL SWELLING M[place] OR [place]MP 10/19/2012 STEPHAN CORDERO APRN 78 2.2 LOCALIZED SUPERFICIAL SWELLING M[place] OR [place]MP 10/19/2012 STEPHAN CORDERO APRN 78 2.2 LOCALIZED SUPERFICIAL SWELLING MASS OR [place]MP 10/19/2012 STEPHAN CORDERO APRN 78 2.2 LOCALIZED SUPERFICIAL SWELLING MASS OR LUMP 11/29/2012 593.9 SEBASTIÁN L INSUFFICIENCY 11/29/2012 593.9 SEBASTIÁN L INSUFFICIENCY 11/29/2012 593.9 SEBASTIÁN L INSUFFICIENCY 11/29/2012 593.9 SEBASTIÁN L INSUFFICIENCY 11/29/2012 593.9 SEBASTIÁN L INSUFFICIENCY 11/29/2012 593.9 SEBASTIÁN L INSUFFICIENCY 11/29/2012 DUENAS DO, YUE K 593.9 RENAL INSUFFICIENCY 11/29/2012 DUENAS DO, YUE K 593.9 RENAL INSUFFICIENCY 11/29/2012 DUENAS DO, YUE K 593.9 RENAL INSUFFICIENCY 11/29/2012 STEPHAN CORDERO APRN T 59 3.9 RENAL INSUFFICIENCY 11/29/2012 VANDANA ARENAS, RAMIN M 59 3.9 RENAL INSUFFICIENCY 11/29/2012 STEPHAN CORDERO APRN 59 3.9 RENAL INSUFFICIENCY 11/29/2012 STEPHAN CORDERO APRN 59 3.9 RENAL INSUFFICIENCY 11/29/2012 DUENAS DO, YUE K 593.9 RENAL INSUFFICIENCY 11/29/2012 STEPHAN CORDERO APRN 59 3.9 RENAL INSUFFICIENCY 11/29/2012 STEPHAN CORDERO APRN 59 3.9 RENAL INSUFFICIENCY 11/29/2012 DUENAS DO, YUE K 593.9 RENAL INSUFFICIENCY 11/29/2012 DIPAK APRN, CAITLIN A 59 3.9 RENAL INSUFFICIENCY 11/29/2012 DIPAK APRN, CAITLIN A 59 3.9 RENAL INSUFFICIENCY 11/29/2012 DUENAS DO, YUE K 593.9 RENAL INSUFFICIENCY 11/29/2012 STEPHAN CORDERO APRN T 59 3.9 RENAL INSUFFICIENCY 11/29/2012 DUENAS DO, YUE K 593.9 RENAL INSUFFICIENCY 11/29/2012 STEPHAN CORDERO APRN 59 3.9 RENAL INSUFFICIENCY 11/29/2012 STEPHAN CORDERO APRN T 59 3.9 RENAL INSUFFICIENCY 11/29/2012 STEPHAN CORDERO APRN 59 3.9 RENAL INSUFFICIENCY 11/29/2012 DUENAS DO, YUE K 593.9 RENAL INSUFFICIENCY 11/29/2012 RITO PHD, KAIDEN Clifford 593.9 RENAL INSUFFICIENCY 11/29/2012 RITO PHD, KAIDEN Clifford 593.9 RENAL INSUFFICIENCY 11/29/2012 RITO PHD, KAIDEN Clifford 593.9 RENAL INSUFFICIENCY 11/29/2012 STEPHAN CORDERO APRN 59 3.9 RENAL INSUFFICIENCY 11/29/2012 STEPHAN CORDERO APRN 59 3.9 RENAL INSUFFICIENCY 11/29/2012 STEPHAN CORDERO APRN 59 3.9 RENAL INSUFFICIENCY 11/29/2012 STEPHAN CORDERO APRN 59 3.9 RENAL INSUFFICIENCY 12/16/2012 SRIKANTH ACOSTA PLASTERER JOURNEYMAN Ot 722. 52 LUMB/LUMBOSAC DISC DEGEN 12/16/2012 SRIKANTH ACOSTA PLASTERER JOURNEYMAN Ot 726. 2 SHOULDER REGION DIS NEC 12/16/2012 SRIKANTH ACOSTA PLASTERER JOURNEYMAN Ot V57. 1 PHYSICAL THERAPY NEC 02/21/2013 705.21 [place] FOCAL HYPERHIDROSIS 02/21/2013 YUE DUENAS DO 705.21 PRIMARY FOCAL HYPERHIDROSIS 02/21/2013 YUE DUENAS DO K 705.21 PRIMARY FOCAL HYPERHIDROSIS 02/21/2013 YUE DUENAS DO 705.21 PRIMARY FOCAL HYPERHIDROSIS 02/21/2013 STEPHAN CORDERO APRN 705.21 PRIMARY FOCAL HYPERHIDROSIS 02/21/2013 VANDANA ARENAS, RAMIN Morin 705.21 PRIMARY FOCAL HYPERHIDROSIS 02/21/2013 STEPHAN CORDERO APRN 705.21 PRIMARY FOCAL HYPERHIDROSIS 02/21/2013 STEPHAN CORDERO APRN 705.21 PRIMARY FOCAL HYPERHIDROSIS 02/21/2013 YUE DUENAS DO 705.21 PRIMARY FOCAL HYPERHIDROSIS 02/21/2013 STEPHAN CORDERO APRN 705.21 PRIMARY FOCAL HYPERHIDROSIS 02/21/2013 STEPHAN CORDERO APRN 705.21 PRIMARY FOCAL HYPERHIDROSIS 02/21/2013 YUE DUENAS DO 705.21 PRIMARY FOCAL HYPERHIDROSIS 02/21/2013 CAITLIN QUESADA APRN A 705.21 PRIMARY FOCAL HYPERHIDROSIS 02/21/2013 CAITLIN QUESADA APRN A 705.21 PRIMARY FOCAL HYPERHIDROSIS 02/21/2013 YUE DUENAS DO 705.21 PRIMARY FOCAL HYPERHIDROSIS 02/21/2013 STEPHAN CORDERO APRN 705.21 PRIMARY FOCAL HYPERHIDROSIS 02/21/2013 YUE DUENAS DO 705.21 PRIMARY FOCAL HYPERHIDROSIS 02/21/2013 STEPHAN CORDERO APRN 705.21 PRIMARY FOCAL HYPERHIDROSIS 02/21/2013 STEPHAN CORDERO APRN 705.21 PRIMARY FOCAL HYPERHIDROSIS 02/21/2013 TSEPHAN CORDERO APRN 705.21 PRIMARY FOCAL HYPERHIDROSIS 02/21/2013 JARED DUENAS DOA K 705.21 PRIMARY FOCAL HYPERHIDROSIS 02/21/2013 RITO PHD, KAIDEN Clifford 705.21 PRIMARY FOCAL HYPERHIDROSIS 02/21/2013 RITO PHD, KAIDEN Clifford 705.21 PRIMARY FOCAL HYPERHIDROSIS 02/21/2013 RITO PHD, KAIDEN Clifford 705.21 PRIMARY FOCAL HYPERHIDROSIS 02/21/2013 STEPHAN CORDERO APRN 705.21 PRIMARY FOCAL HYPERHIDROSIS 02/21/2013 STEPHAN CORDERO APRN 705.21 PRIMARY FOCAL HYPERHIDROSIS 02/21/2013 STEPHAN CORDERO APRN 705.21 PRIMARY FOCAL HYPERHIDROSIS 02/21/2013 STEPHAN CORDERO APRN 705.21 PRIMARY FOCAL HYPERHIDROSIS 03/21/2013 YULISSA ROSAS YUE K V16.0 FAMILY HX COLON CANCER 03/21/2013 YULISSA ROSAS YUE K V16.0 FAMILY HX COLON CANCER 03/21/2013 STEPHAN CORDERO APRN V1 6.0 FAMILY HX COLON CANCER 03/21/2013 VANDANA ARENAS, RAMIN Morin V1 6.0 FAMILY HX COLON CANCER 03/21/2013 STEPHAN CORDERO APRN V1 6.0 FAMILY HX COLON CANCER 03/21/2013 STEPHAN CORDERO APRN V1 6.0 FAMILY HX COLON CANCER 03/21/2013 YULISSA ROSAS YUE K V16.0 FAMILY HX COLON CANCER 03/21/2013 STEPHAN CORDERO APRN V1 6.0 FAMILY HX COLON CANCER 03/21/2013 STEPHAN CORDERO APRN V1 6.0 FAMILY HX COLON CANCER 03/21/2013 YULISSA ROSAS YUE K V16.0 FAMILY HX COLON CANCER 03/21/2013 DIPAK CRAIG CAITLIN A V1 6.0 FAMILY HX COLON CANCER 03/21/2013 DIPAK CRAIG CAITLIN A V1 6.0 FAMILY HX COLON CANCER 03/21/2013 YULISSA ROSAS YUE K V16.0 FAMILY HX COLON CANCER 03/21/2013 STEPHAN CORDERO APRN V1 6.0 FAMILY HX COLON CANCER 03/21/2013 YULISSA ROSAS YUE K V16.0 FAMILY HX COLON CANCER 03/21/2013 STEPHAN CORDERO APRN V1 6.0 FAMILY HX COLON CANCER 03/21/2013 GIL CRAIG, STEPHAN T V1 6.0 FAMILY HX COLON CANCER 03/21/2013 GIL MAHONEYN, STEPHAN T V1 6.0 FAMILY HX COLON CANCER 03/21/2013 YULISSA ROSAS, YUE K V16.0 FAMILY HX COLON CANCER 03/21/2013 RITO PHD, KAIDEN Clifford V16.0 FAMILY HX COLON CANCER 03/21/2013 RITO PHD, KAIDEN Clifford V16.0 FAMILY HX COLON CANCER 03/21/2013 RITO PHD, KAIDEN Clifford V16.0 FAMILY HX COLON CANCER 03/21/2013 GIL MAHONEYN, STEPHAN T V1 6.0 FAMILY HX COLON CANCER 03/21/2013 GIL MAHONEYN, STEPHAN T V1 6.0 FAMILY HX COLON CANCER 03/21/2013 GIL CRAIG, STEPHAN T V1 6.0 FAMILY HX COLON CANCER 03/21/2013 GIL CRAIG, STEPHAN Napier V1 6.0 FAMILY HX COLON CANCER 08/01/2013 YULISSA DO, YUE K V04.81 FLU SHOT 08/01/2013 STEPHAN CORDERO APRN V04.81 FLU SHOT 08/01/2013 STEPHAN CORDERO APRN T V04.81 FLU SHOT 08/01/2013 DUENAS DO, YUE K V04.81 FLU SHOT 08/01/2013 DIPAK CRAIG, CAITLIN A V04.81 FLU SHOT 08/01/2013 DIPAK CRAIG, CAITLIN A V04.81 FLU SHOT 08/01/2013 DUENAS DO, YUE K V04.81 FLU SHOT 08/01/2013 STEPHAN CORDERO APRN T V04.81 FLU SHOT 08/01/2013 DUENAS DO, YUE K V04.81 FLU SHOT 08/01/2013 STEPHAN CORDERO APRN T V04.81 FLU SHOT 08/01/2013 STEPHAN CORDERO APRN T V04.81 FLU SHOT 08/01/2013 STEPHAN CORDERO APRN T V04.81 FLU SHOT 08/01/2013 DUENAS DO, YUE K V04.81 FLU SHOT 08/01/2013 RITO PHD, KAIDEN Clifford V04.81 FLU SHOT 08/01/2013 RITO PHD, KAIDEN Clifford V04.81 FLU SHOT 08/01/2013 RITO PHD, KAIDEN Clifford V04.81 FLU SHOT 08/01/2013 STEPHAN CORDERO APRN V04.81 FLU SHOT 08/01/2013 STEPHAN CORDERO APRN T V04.81 FLU SHOT 08/01/2013 STEPHAN CORDERO APRN V04.81 FLU SHOT 08/01/2013 STEPHAN CORDERO APRN V04.81 FLU SHOT 09/10/2013 COLIN ARENAS, MAHESH R Ot 490 BRONCHITIS NOS 09/10/2013 COLIN ARENAS, MAHESH R Ot 786. 50 CHEST PAIN NOS 10/18/2013 DIPAK CAITLIN CRAIG A V65.49 OTHER SPECIFIED COUNSELING 10/18/2013 DIPAKAntonio CRAIG CAITLIN A V82.81 SPECIAL SCREENING FOR OSTEOPOROSIS 10/18/2013 DIPAK KIARA CAITLIN A V65.49 OTHER SPECIFIED COUNSELING 10/18/2013 DIPAK KIARA CAITLIN A V82.81 SPECIAL SCREENING FOR OSTEOPOROSIS 10/18/2013 DUENAS DO YUE K V65.49 OTHER SPECIFIED COUNSELING 10/18/2013 DUENAS DO, YUE K V82.81 SPECIAL SCREENING FOR OSTEOPOROSIS 10/18/2013 STEPHAN CORDERO APRN V65.49 OTHER SPECIFIED COUNSELING 10/18/2013 STEPHAN CORDERO APRN V82.81 SPECIAL SCREENING FOR OSTEOPOROSIS 10/18/2013 DUENAS DO YUE K V65.49 OTHER SPECIFIED COUNSELING 10/18/2013 DUENAS DO, YUE K V82.81 SPECIAL SCREENING FOR OSTEOPOROSIS 10/18/2013 STEPHAN CORDERO APRN V65.49 OTHER SPECIFIED COUNSELING 10/18/2013 STEPHAN CORDERO APRN V82.81 SPECIAL SCREENING FOR OSTEOPOROSIS 10/18/2013 STEPHAN CORDERO APRN V65.49 OTHER SPECIFIED COUNSELING 10/18/2013 STEPHAN CORDERO APRN V82.81 SPECIAL SCREENING FOR OSTEOPOROSIS 10/18/2013 STEPHAN CORDERO APRN V65.49 OTHER SPECIFIED COUNSELING 10/18/2013 STEPHAN CORDERO APRN V82.81 SPECIAL SCREENING FOR OSTEOPOROSIS 10/18/2013 DUENAS DO, YUE K V65.49 OTHER SPECIFIED COUNSELING 10/18/2013 DUENAS DO, YUE K V82.81 SPECIAL SCREENING FOR OSTEOPOROSIS 10/18/2013 KAIDEN VERAS PHD V65.49 OTHER SPECIFIED COUNSELING 10/18/2013 KAIDEN VERAS PHD V82.81 SPECIAL SCREENING FOR OSTEOPOROSIS 10/18/2013 KAIDEN VERAS PHD V65.49 OTHER SPECIFIED COUNSELING 10/18/2013 KAIDEN VERAS PHD V82.81 SPECIAL SCREENING FOR OSTEOPOROSIS 10/18/2013 RITO CUMMINGS, KAIDEN Clifford V65.49 OTHER SPECIFIED COUNSELING 10/18/2013 RITO CUMMINGS, KAIDEN Clifford V82.81 SPECIAL SCREENING FOR OSTEOPOROSIS 10/18/2013 STEPHAN CORDERO APRN V65.49 OTHER SPECIFIED COUNSELING 10/18/2013 STEPHAN CORDERO APRN V82.81 SPECIAL SCREENING FOR OSTEOPOROSIS 10/18/2013 STEPHAN CORDERO APRN V65.49 OTHER SPECIFIED COUNSELING 10/18/2013 STEPHAN CORDERO APRN V82.81 SPECIAL SCREENING FOR OSTEOPOROSIS 10/18/2013 STEPHAN CORDERO APRN V65.49 OTHER SPECIFIED COUNSELING 10/18/2013 STEPHAN CORDERO APRN V82.81 SPECIAL SCREENING FOR OSTEOPOROSIS 10/18/2013 STEPHAN CORDERO APRN V65.49 OTHER SPECIFIED COUNSELING 10/18/2013 STEPHAN CORDERO APRN V82.81 SPECIAL SCREENING FOR OSTEOPOROSIS 11/10/2013 YUE DUENAS DO 726.10 DISORDERS OF BURSAE AND TENDONS IN SHOULDER REGION UNSPECIFIED 11/10/2013 YUE DUENAS DO 726.32 LATERAL EPICONDYLITIS ELBOW REGION 11/10/2013 STEPHAN CORDERO APRN 726.10 DISORDERS OF BURSAE AND TENDONS IN SHOULDER REGION UNS PECIFIED 11/10/2013 STEPHAN CORDERO APRN 726.32 LATERAL EPICONDYLITIS ELBOW REGION 11/10/2013 YUE DUENAS DO 726.10 DISORDERS OF BURSAE AND TENDONS IN SHOULDER REGION UNSPECIFIED 11/10/2013 YUE DUENAS DO 726.32 LATERAL EPICONDYLITIS ELBOW REGION 11/10/2013 STEPHAN CORDERO APRN 726.10 DISORDERS OF BURSAE AND TENDONS IN SHOULDER REGION UNS PECIFIED 11/10/2013 STEPHAN CORDERO APRN 726.32 LATERAL EPICONDYLITIS ELBOW REGION 11/10/2013 STEPHAN CORDERO APRN 726.10 DISORDERS OF BURSAE AND TENDONS IN SHOULDER REGION UNS PECIFIED 11/10/2013 STEPHAN CORDERO APRN 726.32 LATERAL EPICONDYLITIS ELBOW REGION 11/10/2013 STEPHAN CORDERO APRN 726.10 DISORDERS OF BURSAE AND TENDONS IN SHOULDER REGION UNS PECIFIED 11/10/2013 STEPHAN CORDERO APRN 726.32 LATERAL EPICONDYLITIS ELBOW REGION 11/10/2013 YUE DUENAS DO 726.10 DISORDERS OF BURSAE AND TENDONS IN SHOULDER REGION UNSPECIFIED 11/10/2013 DUENAS DO, YUE K 726.32 LATERAL EPICONDYLITIS ELBOW REGION 11/10/2013 KAIDEN VERAS PHD 726.10 DISORDERS OF BURSAE AND TENDONS IN SHOULDER REGION UNS PECIFIED 11/10/2013 KAIDEN VERAS PHD 726.32 LATERAL EPICONDYLITIS ELBOW REGION 11/10/2013 KAIDEN VERAS PHD 726.10 DISORDERS OF BURSAE AND TENDONS IN SHOULDER REGION UNS PECIFIED 11/10/2013 KAIDEN VERAS PHD 726.32 LATERAL EPICONDYLITIS ELBOW REGION 11/10/2013 KAIDEN VERAS PHD 726.10 DISORDERS OF BURSAE AND TENDONS IN SHOULDER REGION UNS PECIFIED 11/10/2013 KAIDEN VERAS PHD 726.32 LATERAL EPICONDYLITIS ELBOW REGION 11/10/2013 STEPHAN CORDERO APRN 726.10 DISORDERS OF BURSAE AND TENDONS IN SHOULDER REGION UNS PECIFIED 11/10/2013 STEPHAN CORDERO APRN 726.32 LATERAL EPICONDYLITIS ELBOW REGION 11/10/2013 STEPHAN CORDERO APRN 726.10 DISORDERS OF BURSAE AND TENDONS IN SHOULDER REGION UNS PECIFIED 11/10/2013 STEPHAN CORDERO APRN 726.32 LATERAL EPICONDYLITIS ELBOW REGION 11/10/2013 STEPHAN CORDERO APRN 726.10 DISORDERS OF BURSAE AND TENDONS IN SHOULDER REGION UNS PECIFIED 11/10/2013 STEPHAN CORDERO APRN 726.32 LATERAL EPICONDYLITIS ELBOW REGION 11/10/2013 STEPHAN CORDERO APRN 726.10 DISORDERS OF BURSAE AND TENDONS IN SHOULDER REGION UNS PECIFIED 11/10/2013 STEPHAN CORDERO APRN 726.32 LATERAL EPICONDYLITIS ELBOW REGION 11/23/2013 STEPHAN CORDERO APRN 28 5.9 ANEMIA 11/23/2013 STEPHAN CORDERO APRN 790.29 HYPERGLYCEMIA 11/23/2013 DUENAS DO, YUE K 285.9 ANEMIA 11/23/2013 DUENAS DO, YUE K 790.29 HYPERGLYCEMIA 11/23/2013 STEPHAN CORDERO APRN 28 5.9 ANEMIA 11/23/2013 STEPHAN CORDERO APRN 790.29 HYPERGLYCEMIA 11/23/2013 STEPHAN CORDERO APRN 28 5.9 ANEMIA 11/23/2013 STEPHAN CORDERO APRN 790.29 HYPERGLYCEMIA 11/23/2013 STEPHAN CORDERO APRN 28 5.9 ANEMIA 11/23/2013 STEPHAN CORDERO APRN 790.29 HYPERGLYCEMIA 11/23/2013 YUE DUENAS DO K 285.9 ANEMIA 11/23/2013 YUE DUENAS DO K 790.29 HYPERGLYCEMIA 11/23/2013 KAIDEN VERAS PHD 285.9 ANEMIA 11/23/2013 KAIDEN VERAS PHD 790.29 HYPERGLYCEMIA 11/23/2013 KAIDEN VERAS PHD 285.9 ANEMIA 11/23/2013 KAIDEN VERAS PHD 790.29 HYPERGLYCEMIA 11/23/2013 KAIDEN VERAS PHD 285.9 ANEMIA 11/23/2013 KAIDEN VERAS PHD 790.29 HYPERGLYCEMIA 11/23/2013 STEPHAN CORDERO APRN 28 5.9 ANEMIA 11/23/2013 STEPHAN CORDERO APRN 790.29 HYPERGLYCEMIA 11/23/2013 STEPHAN CORDERO APRN 28 5.9 ANEMIA 11/23/2013 STEPHAN CORDERO APRN 790.29 HYPERGLYCEMIA 11/23/2013 STEPHAN CORDERO APRN 28 5.9 ANEMIA 11/23/2013 STEPHAN CORDERO APRN 790.29 HYPERGLYCEMIA 11/23/2013 STEPHAN CORDREO APRN 28 5.9 ANEMIA 11/23/2013 STEPHAN CORDERO APRN 790.29 HYPERGLYCEMIA 03/17/2014 STEPHAN CORDERO APRN 799.52 COGNITIVE COMMUNICATION DEFICIT 03/17/2014 STEPHAN CORDERO APRN 799.52 COGNITIVE COMMUNICATION DEFICIT 03/17/2014 YUE DUENAS DO K 799.52 COGNITIVE COMMUNICATION DEFICIT 03/17/2014 KAIDEN VERAS PHD 799.52 COGNITIVE COMMUNICATION DEFICIT 03/17/2014 KAIDEN VERAS PHD 799.52 COGNITIVE COMMUNICATION DEFICIT 03/17/2014 KAIDEN VERAS PHD 799.52 COGNITIVE COMMUNICATION DEFICIT 03/17/2014 STEPHAN CORDERO APRN 799.52 COGNITIVE COMMUNICATION DEFICIT 03/17/2014 STEPHAN CORDERO APRN 799.52 COGNITIVE COMMUNICATION DEFICIT 03/17/2014 STEPHAN CORDERO APRN 799.52 COGNITIVE COMMUNICATION DEFICIT 03/17/2014 STEPHAN CORDERO APRN 799.52 COGNITIVE COMMUNICATION DEFICIT 04/12/2014 KAIDEN VERAS PHD 309.28 AD ADJ D/O W ANX DEP MOOD 04/12/2014 KAIDEN VERAS PHD 309.28 AD ADJ D/O W ANX DEP MOOD 04/12/2014 KAIDEN VERAS PHD 309.28 AD ADJ D/O W ANX DEP MOOD 04/12/2014 STEPHAN CORDERO APRN 309.28 AD ADJ D/O W ANX DEP MOOD 04/12/2014 STEPHAN COREDRO APRN 309.28 AD ADJ D/O W ANX DEP MOOD 04/12/2014 STEPHAN CORDERO APRN T 309.28 AD ADJ D/O W ANX DEP MOOD 04/12/2014 STEPHAN CORDERO APRN 309.28 AD ADJ D/O W ANX DEP MOOD 04/19/2014 RITO CUMMINGS, KAIDEN Clifford 309.0 AD ADJ D/O W DEPRESSED 04/19/2014 RITO CUMMINGS, KAIDEN Clifford 309.0 AD ADJ D/O W DEPRESSED 04/19/2014 STEPHAN CORDERO APRN 30 9.0 AD ADJ D/O W DEPRESSED 04/19/2014 STEPHAN CORDERO APRN 30 9.0 AD ADJ D/O W DEPRESSED 04/19/2014 STEPHAN CORDERO APRN 30 9.0 AD ADJ D/O W DEPRESSED 04/19/2014 STEPHAN CORDERO APRN 30 9.0 AD ADJ D/O W DEPRESSED 05/11/2014 RITO CUMMINGS, KAIDEN Clifford 294.9 OR COG DIS NOS 05/11/2014 STEPHAN CORDERO APRN 29 4.9 OR COG DIS NOS 05/11/2014 STEPHAN CORDERO APRN 29 4.9 OR COG DIS NOS 05/11/2014 STEPHAN CORDERO APRN 29 4.9 OR COG DIS NOS 05/11/2014 STEPHAN CORDERO APRN 29 4.9 OR COG DIS NOS 06/20/2014 CAITLIN QUESADA APRN Ot 733.90 06/20/2014 CAITLIN QUESADA APRN Ot V82.81 07/26/2014 STEPHAN CORDERO APRN V1 6.0 FAMILY HISTORY OF MALIGNANT NEOPLASM OF GASTROINTESTINAL TRACT 07/26/2014 STEPHAN CORDERO APRN V1 6.0 FAMILY HISTORY OF MALIGNANT NEOPLASM OF GASTROINTESTINAL TRACT 07/26/2014 STEPHAN CORDERO APRN V1 6.0 FAMILY HISTORY OF MALIGNANT NEOPLASM OF GASTROINTESTINAL TRACT 07/26/2014 STEPHAN CORDERO APRN V1 6.0 FAMILY HISTORY OF MALIGNANT NEOPLASM OF GASTROINTESTINAL TRACT 07/28/2014 STEPHAN CORDERO APRN 79 0.6 Liver Function Test, Abnormal 07/28/2014 STEPHAN CORDERO APRN 79 0.6 Liver Function Test, Abnormal 07/28/2014 STEPHAN CORDERO APRN 79 0.6 Liver Function Test, Abnormal 07/28/2014 GIL MAHONEYNSTEPHAN 79 0.6 Liver Function Test, Abnormal 08/10/2014 STEPHAN CORDERO APRN Karthikeyan 252.00 HYPERPARATHYROIDISM UNSPECIFIED 08/10/2014 GIL EARLY CHILDHOODSTEPHAN Alvarez Karthikeyan 252.00 HYPERPARATHYROIDISM UNSPECIFIED 08/10/2014 GIL EARLY CHILDHOODSTEPHAN Alvarez Karthikeyan 252.00 HYPERPARATHYROIDISM UNSPECIFIED 08/10/2014 GIL EARLY CHILDHOODSTEPHAN Alvarez Karthikeyan 252.00 HYPERPARATHYROIDISM UNSPECIFIED 08/14/2014 CAITLIN QUESADA EARLY CHILDHOOD Ot 733.90 08/14/2014 CAITLIN QUESADA APRN Ot V82.81 08/31/2014 Ot V12.72 PER BENJAMIN HISTORY OF COLONIC POLYPS 08/31/2014 Ot V16.0 FAMI LY HX-GI MALIGNANCY 08/31/2014 Ot V76.51 SCR EEN MAL NEOP- COLON 10/06/2014 STEPHAN CORDERO APRN V45.86 BARIATRIC SURGERY STATUS 10/06/2014 STEPHAN CORDERO APRN V45.86 BARIATRIC SURGERY STATUS 10/13/2014 STEPHAN CORDERO APRN 26 8.9 VITAMIN D DEFICIENCY 10/17/2014 CAITLIN QUESADA EARLY CHILDHOOD Ot V65.49 10/17/2014 CAITLIN QUESADA EARLY CHILDHOOD Ot V76.12 10/17/2014 CAITLIN QUESADA EARLY CHILDHOOD Ot V82.81 10/17/2014 CAITLIN QUESADA EARLY CHILDHOOD Ot 733.90 10/17/2014 CAITLIN QUESADA EARLY CHILDHOOD Ot V82.81 12/18/2014 FRENCH DPM, ERIKA Q Ot 715. 33 12/18/2014 FRENCH DPM, ERIKA Q Ot V72. 83 12/18/2014 FRENCH DPM, ERIKA Q Ot V74. 8 12/18/2014 FRENCH DPM, ERIKA Q Ot 401. 9 HYPERTENSION NOS 12/18/2014 FRENCH DPM, ERIKA Q Ot 715. 37 LOC OSTEOARTH NOS-ANKLE 12/18/2014 FRENCH DPM, ERIKA Q Ot 825. 24 FX CUNEIFORM, FOOT-CLOS 12/18/2014 FRENCH DPM, ERIKA Q Ot E000 .8 OTHER EXTERNAL CAUSE STATUS 12/18/2014 FRENCH DPM, ERIKA Q Ot E928 .9 ACCIDENT NOS 12/18/2014 FRENCH DPM, ERIKA Q Ot V74. 8 SCREEN-BACTERIAL DIS NEC 06/13/2015 Ot V76.12 06/13/2015 Ot 840.4 06/13/2015 SUBHA SANDIP M EARLY CHILDHOOD Ot 782.2 06/13/2015 VANDANA ARENAS, RAMIN M Ot 211.3 06/13/2015 VANDANA ARENAS, RAMIN M Ot 562.10 06/13/2015 VANDANA ARENAS, RAMIN M Ot V16.0 06/13/2015 VANDANA ARENAS, RAMIN M Ot V76.51 06/13/2015 VANDANA ARENAS, RAMIN M Ot V72.84 06/13/2015 CAITLIN QUESADA EARLY CHILDHOOD Ot V65.49 06/13/2015 CAITLIN QUESADA EARLY CHILDHOOD Ot V76.12 06/13/2015 CAITLIN QUESDAA EARLY CHILDHOOD Ot V82.81 06/13/2015 CAITLIN QUESADA A EARLY CHILDHOOD Ot 733.90 06/13/2015 CAITLIN QUESADA A EARLY CHILDHOOD Ot V82.81 06/13/2015 Ot V72.84 06/13/2015 FRENCH DPM, ERIKA Q Ot 715. 33 06/13/2015 FRENCH DPM, ERIKA Q Ot V72. 83 06/13/2015 FRENCH DPM, ERIKA Q Ot V74. 8 07/05/2015 EMMANUEL ARENAS, MOE Ot I12.9 07/05/2015 EMMANUEL ARENAS, MOE Ot N18.3 07/13/2015 EMMANUEL ARENAS, MOE Ot I12.9 07/13/2015 EMMANUEL ARENAS, MOE Ot N18.3 07/13/2015 EMMANUEL ARENAS, MOE Ot I12.9 07/13/2015 EMAMNUEL ARENAS, MOE Ot N18.3 10/11/2015 CAITLIN QUESADA EARLY CHILDHOOD Ot V65.49 10/11/2015 CAITLIN QUESADA A EARLY CHILDHOOD Ot V76.12 10/11/2015 CAITLIN QUESADA A EARLY CHILDHOOD Ot V82.81 10/11/2015 CAITLIN QUESADA A EARLY CHILDHOOD Ot 733.90 10/11/2015 CAITLIN QUESADA EARLY CHILDHOOD Ot V82.81 10/24/2015 CAITLIN QUESADA APRN Ot V65.49 OTHER SPECIFIED COUNSELING 10/24/2015 CAITLIN QUESADA APRN Ot V76.12 OTH SCREEN MAMMO-MALIGN NEOPLASM OF LES 10/24/2015 CAITLIN QUESADA EARLY CHILDHOOD Ot V82.81 SCREENING FOR OSTEOPOROSIS 10/24/2015 DIPAKCAITLIN EARLY CHILDHOOD Ot 733.90 BONE CARTILAGE DIS NOS 10/24/2015 CAITLIN QUESADA EARLY CHILDHOOD Ot V82.81 SCREENING FOR OSTEOPOROSIS 11/23/2015 MORATAYA DO, ELIANA L Ot M85.89 OTH DISRD OF BONE DENSITY AND STRUCTURE, 11/23/2015 MORATAYA DO, ELIANA L Ot M85.89 OTH DISRD OF BONE DENSITY AND STRUCTURE, 12/22/2015 MORATAYA DO, ELIANA L Ot M85.89 OTH DISRD OF BONE DENSITY AND STRUCTURE, 12/24/2015 MORATAYA DO, ELIANA L Ot M85.89 OTH DISRD OF BONE DENSITY AND STRUCTURE, 12/25/2015 MORATAYA DO, ELIANA L Ot M85.89 OTH DISRD OF BONE DENSITY AND STRUCTURE, 01/25/2016 CAITLIN QUESADA APRN Ot V65.49 OTHER SPECIFIED COUNSELING 01/25/2016 CAITLIN QUESADA APRN Ot V76.12 OTH SCREEN MAMMO-MALIGN NEOPLASM OF LES 01/25/2016 CAITLIN QUESADA EARLY CHILDHOOD Ot V82.81 SCREENING FOR OSTEOPOROSIS 01/25/2016 DIPAKCAITLIN EARLY CHILDHOOD Ot 733.90 BONE CARTILAGE DIS NOS 01/25/2016 CAITLIN QUESADA EARLY CHILDHOOD Ot V82.81 SCREENING FOR OSTEOPOROSIS 05/09/2016 Ot V76.12 OTH SCREEN MAMMO- MALIGN NEOPLASM OF LES 05/09/2016 Ot 840.4 SPRA IN ROTATOR CUFF 05/09/2016 SANDIP MASCORRO EARLY CHILDHOOD Ot 782.2 LOCAL SUPRFICIAL SWELLNG 05/09/2016 VANDANA ARENAS, RAMIN Morin Ot 211.3 BENIGN NEOPLASM LG BOWEL 05/09/2016 VANDANA ARENAS, RAMIN Morin Ot 562.10 DIVERTICULOSIS COLON (W/O MENT OF HEMORR 05/09/2016 VANDANA ARENAS, RAMIN Morin Ot V16.0 FAMILY HX-GI MALIGNANCY 05/09/2016 VANDANA ARENAS, RAMIN Morin Ot V76.51 SCREEN MAL NEOP-COLON 05/09/2016 VANDANA ARENAS, RAMIN Morin Ot V72.84 EXAM PRE-OPERATIVE NOS 05/09/2016 DIPAK, CAITLIN Pyle EARLY CHILDHOOD Ot V65.49 OTHER SPECIFIED COUNSELING 05/09/2016 DIPAK CAITLIN A EARLY CHILDHOOD Ot V76.12 OTH SCREEN MAMMO-MALIGN NEOPLASM OF LES 05/09/2016 DIPAK, CAITLIN A EARLY CHILDHOOD Ot V82.81 SCREENING FOR OSTEOPOROSIS 05/09/2016 DIPAK, CAITLIN A EARLY CHILDHOOD Ot 733.90 BONE CARTILAGE DIS NOS 05/09/2016 DIPAK, CAITLIN A EARLY CHILDHOOD Ot V82.81 SCREENING FOR OSTEOPOROSIS 05/09/2016 Ot V72.84 EXA M PRE- OPERATIVE NOS 05/09/2016 FRENCH DPM, ERIKA Q Ot 715. 33 LOC OSTEOART NOS-FOREARM 05/09/2016 FRENCH DPM, ERIKA Q Ot V72. 83 EXAM PRE-OPERATIVE NEC 05/09/2016 FRENCH DPM, ERIKA Q Ot V74. 8 SCREEN-BACTERIAL DIS NEC 05/09/2016 EMMANUEL ARENAS, MOE Ot I12.9 HYPERTENSIVE CHRONIC KIDNEY DISEASE W ST 05/09/2016 EMMANUEL ARENAS, MOE Ot N18.3 CHRONIC KIDNEY DISEASE, STAGE 3 (MODERAT 05/09/2016 ELIANA MORATAYA DO Ot M85.89 OTH DISRD OF BONE DENSITY AND STRUCTURE, 05/12/2016 STEPHAN CORDERO Ot R22.1 LOCALIZED SWELLING, MASS AND LUMP, NECK 05/12/2016 STEPHAN CORDERO Ot R22.1 LOCALIZED SWELLING, MASS AND LUMP, NECK 05/14/2016 Ot V76.12 OTH SCREEN MAMMO- MALIGN NEOPLASM OF LES 05/14/2016 Ot 840.4 SPRA IN ROTATOR CUFF 05/14/2016 SANDIP MASCORRO APRN Ot 782.2 LOCAL SUPRFICIAL SWELLNG 05/14/2016 VANDANA ARENAS, RAMIN Morin Ot 211.3 BENIGN NEOPLASM LG BOWEL 05/14/2016 VANDANA ARENAS, RAMIN Morin Ot 562.10 DIVERTICULOSIS COLON (W/O MENT OF HEMORR 05/14/2016 VANDANA ARENAS, RAMIN Morin Ot V16.0 FAMILY HX-GI MALIGNANCY 05/14/2016 VANDANA ARENAS, RAMIN Morin Ot V76.51 SCREEN MAL NEOP-COLON 05/14/2016 VANDANA ARENAS, RAMIN Morin Ot V72.84 EXAM PRE-OPERATIVE NOS 05/14/2016 DIPAK, CAITLIN A EARLY CHILDHOOD Ot V65.49 OTHER SPECIFIED COUNSELING 05/14/2016 DIPAK CAITLIN A EARLY CHILDHOOD Ot V76.12 OTH SCREEN MAMMO-MALIGN NEOPLASM OF LES 05/14/2016 DIPAK, CAITLIN A EARLY CHILDHOOD Ot V82.81 SCREENING FOR OSTEOPOROSIS 05/14/2016 DIPAK CAITLIN A EARLY CHILDHOOD Ot 733.90 BONE CARTILAGE DIS NOS 05/14/2016 DIPAK CAITLIN A EARLY CHILDHOOD Ot V82.81 SCREENING FOR OSTEOPOROSIS 05/14/2016 Ot V72.84 EXA M PRE- OPERATIVE NOS 05/14/2016 FRENCH DPM, ERIKA Q Ot 715. 33 LOC OSTEOART NOS-FOREARM 05/14/2016 FRENCH DPM, ERIKA Q Ot V72. 83 EXAM PRE-OPERATIVE NEC 05/14/2016 FRENCH DPM, ERIKA Q Ot V74. 8 SCREEN-BACTERIAL DIS NEC 05/14/2016 EMMANUEL ARENAS, MOE Ot I12.9 HYPERTENSIVE CHRONIC KIDNEY DISEASE W ST 05/14/2016 EMMANUEL ARENAS, MOE Ot N18.3 CHRONIC KIDNEY DISEASE, STAGE 3 (MODERAT 05/14/2016 ELIANA MORATAYA DO L Ot M85.89 OTH DISRD OF BONE DENSITY AND STRUCTURE, 05/14/2016 STEPHAN CORDERO Ot R22.1 LOCALIZED SWELLING, MASS AND LUMP, NECK 05/15/2016 Ot V76.12 OTH SCREEN MAMMO- MALIGN NEOPLASM OF LES 05/15/2016 Ot 840.4 SPRA IN ROTATOR CUFF 05/15/2016 SANDIP MASCORRO EARLY CHILDHOOD Ot 782.2 LOCAL SUPRFICIAL SWELLNG 05/15/2016 VANDANA ARENAS, RAMIN Morin Ot 211.3 BENIGN NEOPLASM LG BOWEL 05/15/2016 VANDANA ARENAS, RAMIN Morin Ot 562.10 DIVERTICULOSIS COLON (W/O MENT OF HEMORR 05/15/2016 VANDANA ARENAS, RAMIN Morin Ot V16.0 FAMILY HX-GI MALIGNANCY 05/15/2016 VANDANA ARENAS, RAMIN oMrin Ot V76.51 SCREEN MAL NEOP-COLON 05/15/2016 VANDANA ARENAS, RAMIN Morin Ot V72.84 EXAM PRE-OPERATIVE NOS 05/15/2016 DIPAK, CAITLIN Pyle EARLY CHILDHOOD Ot V65.49 OTHER SPECIFIED COUNSELING 05/15/2016 DIPAK, CAITLIN Pyle EARLY CHILDHOOD Ot V76.12 OTH SCREEN MAMMO-MALIGN NEOPLASM OF LES 05/15/2016 DIPAK, CAITLIN Pyle EARLY CHILDHOOD Ot V82.81 SCREENING FOR OSTEOPOROSIS 05/15/2016 DIPAK, CAITLIN Lashanda EARLY CHILDHOOD Ot 733.90 BONE CARTILAGE DIS NOS 05/15/2016 DIPAK, CAITLIN Pyle EARLY CHILDHOOD Ot V82.81 SCREENING FOR OSTEOPOROSIS 05/15/2016 Ot V72.84 EXA M PRE- OPERATIVE NOS 05/15/2016 FRENCH DPM, ERIKA Q Ot 715. 33 LOC OSTEOART NOS-FOREARM 05/15/2016 FRENCH DPM, ERIKA Q Ot V72. 83 EXAM PRE-OPERATIVE NEC 05/15/2016 FRENCH DPM, ERIKA Q Ot V74. 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 1 NONTOXIC SINGLE THYROID NODULE 06/05/2016 STEPHAN CORDEROP Ot R22.1 LOCALIZED SWELLING, MASS AND LUMP, NECK 06/19/2016 FRENCH DPM, ERIKA Q Ot 715. 33 LOC OSTEOART NOS-FOREARM 06/19/2016 FRENCH DPM, ERIKA Q Ot V72. 83 EXAM PRE-OPERATIVE NEC 06/19/2016 FRENCH DPM, ERIKA Q Ot V74. 8 SCREEN-BACTERIAL DIS NEC 06/19/2016 ELIANA MORATAYA DO Ot M85.89 OTH DISRD OF BONE DENSITY AND STRUCTURE, 06/19/2016 STEPHAN CORDERO Ot R22.1 LOCALIZED SWELLING, MASS AND LUMP, NECK 06/19/2016 STEPHAN CORDERO Ot R22.1 LOCALIZED SWELLING, MASS AND LUMP, NECK 06/26/2016 LIMA TONYA ROSAS Ot E04. 1 NONTOXIC SINGLE THYROID NODULE 07/02/2016 LimaTonya A 24 1.1 NONTOXIC MULTINODULAR GOITER 07/02/2016 LimaTonya A E0 4.2 NONTOXIC MULTINODULAR GOITER 07/10/2016 CAITLIN QUESADA EARLY CHILDHOOD Ot V65.49 OTHER SPECIFIED COUNSELING 07/10/2016 CAITLIN QUESADA EARLY CHILDHOOD Ot V76.12 OTH SCREEN MAMMO-MALIGN NEOPLASM OF LES 07/10/2016 CAITLIN QUESADA EARLY CHILDHOOD Ot V82.81 SCREENING FOR OSTEOPOROSIS 07/10/2016 CAITLIN QUESADA EARLY CHILDHOOD Ot 733.90 BONE CARTILAGE DIS NOS 07/10/2016 CAITLIN QUESADA EARLY CHILDHOOD Ot V82.81 SCREENING FOR OSTEOPOROSIS 07/14/2016 LIMA TONYA ROSAS Ot E04. 1 NONTOXIC SINGLE THYROID NODULE 07/14/2016 LIMA TONYA ROSAS Ot E04. 1 NONTOXIC SINGLE THYROID NODULE 08/07/2016 ELIANA MORATAYA DO Ot E04.1 NONTOXIC SINGLE THYROID NODULE 08/08/2016 ELIANA MORATAYA DO Ot E04.1 NONTOXIC SINGLE THYROID NODULE 08/08/2016 ELIANA MORATAYA DO Ot E21.3 HYPERPARATHYROIDISM, UNSPECIFIED 08/08/2016 ELIANA MORATAYA DO Ot M85.80 OTH DISRD OF BONE DENSITY AND STRUCTURE, 08/08/2016 ELIANA MORATAYA DO Ot Z98.84 BARIATRIC SURGERY STATUS 08/28/2016 EMMANUEL ARENAS, MOE Ot I12.9 HYPERTENSIVE CHRONIC KIDNEY DISEASE W ST 08/28/2016 EMMANUEL ARENAS, MOE Ot M19.90 UNSPECIFIED OSTEOARTHRITIS, UNSPECIFIED 08/28/2016 EMMANUEL ARENAS, MOE Ot N18.3 CHRONIC KIDNEY DISEASE, STAGE 3 (MODERAT 08/28/2016 EMMANUEL ARENAS, MOE Ot Z98.84 BARIATRIC SURGERY STATUS 08/28/2016 ELIANA MORATAYA DO Ot E04.1 NONTOXIC SINGLE THYROID NODULE 08/28/2016 ELIANA MORATAYA DO Ot E21.3 HYPERPARATHYROIDISM, UNSPECIFIED 08/28/2016 ELIANA MORATAYA DO Ot M85.80 OTH DISRD OF BONE DENSITY AND STRUCTURE, 08/28/2016 ELIANA MORATAYA DO Ot Z98.84 BARIATRIC SURGERY STATUS 09/11/2016 Ot V76.12 OTH SCREEN MAMMO- MALIGN NEOPLASM OF LES 09/11/2016 Ot 840.4 SPRA IN ROTATOR CUFF 09/11/2016 SANDIP MASCORRO EARLY CHILDHOOD Ot 782.2 LOCAL SUPRFICIAL SWELLNG 09/11/2016 VANDANA ARENAS, RAMIN Morin Ot 211.3 BENIGN NEOPLASM LG BOWEL 09/11/2016 VANDANA ARENAS, RAMIN Morin Ot 562.10 DIVERTICULOSIS COLON (W/O MENT OF HEMORR 09/11/2016 VANDANA ARENAS, RAMIN Morin Ot V16.0 FAMILY HX-GI MALIGNANCY 09/11/2016 VANDANA ARENAS, RAMIN Morin Ot V76.51 SCREEN MAL NEOP-COLON 09/11/2016 VANDANA ARENAS, RAMIN Morin Ot V72.84 EXAM PRE-OPERATIVE NOS 09/11/2016 CAITLIN QUESADA EARLY CHILDHOOD Ot V65.49 OTHER SPECIFIED COUNSELING 09/11/2016 CAITLIN QUESADA EARLY CHILDHOOD Ot V76.12 OTH SCREEN MAMMO-MALIGN NEOPLASM OF LES 09/11/2016 CAITLIN QUESADA EARLY CHILDHOOD Ot V82.81 SCREENING FOR OSTEOPOROSIS 09/11/2016 CAITLIN QUESADA EARLY CHILDHOOD Ot 733.90 BONE CARTILAGE DIS NOS 09/11/2016 CAITLIN QUESADA EARLY CHILDHOOD Ot V82.81 SCREENING FOR OSTEOPOROSIS 09/11/2016 Ot V72.84 EXA M PRE- OPERATIVE NOS 09/11/2016 FRENCH DPM, ERIKA Q Ot 715. 33 LOC OSTEOART NOS-FOREARM 09/11/2016 FRENCH DPM, ERIKA Q Ot V72. 83 EXAM PRE-OPERATIVE NEC 09/11/2016 FRENCH DPM, ERIKA Q Ot V74. 8 SCREEN-BACTERIAL DIS NEC 09/11/2016 MOE BENITEZ MD Ot I12.9 HYPERTENSIVE CHRONIC KIDNEY DISEASE W ST 09/11/2016 MOE BENITEZ MD Ot N18.3 CHRONIC KIDNEY DISEASE, STAGE 3 (MODERAT 09/11/2016 CLARISSA MORATAYA DOISON L Ot M85.89 OTH DISRD OF BONE DENSITY AND STRUCTURE, 09/11/2016 STEPHAN CORDERO Ot R22.1 LOCALIZED SWELLING, MASS AND LUMP, NECK 09/11/2016 STEPHAN CORDERO PLASTERER JOURNEYMAN Ot R22.1 LOCALIZED SWELLING, MASS AND LUMP, NECK 09/11/2016 TONYA LIMA DO Ot E04. 1 NONTOXIC SINGLE THYROID NODULE 09/11/2016 ELIANA MORATAYA DO L Ot E04.1 NONTOXIC SINGLE THYROID NODULE 09/11/2016 ELIANA MORATAYA DO L Ot E21.3 HYPERPARATHYROIDISM, UNSPECIFIED 09/11/2016 ELIANA MORATAYA DO L Ot M85.80 OTH DISRD OF BONE DENSITY AND STRUCTURE, 09/11/2016 CLARISSA MORATAYA DOISON L Ot Z98.84 BARIATRIC SURGERY STATUS 09/11/2016 MOE BENITEZ MD Ot I12.9 HYPERTENSIVE CHRONIC KIDNEY DISEASE W ST 09/11/2016 MOE BENITEZ MD Ot M19.90 UNSPECIFIED OSTEOARTHRITIS, UNSPECIFIED 09/11/2016 MOE BENITEZ MD Ot N18.3 CHRONIC KIDNEY DISEASE, STAGE 3 (MODERAT 09/11/2016 MOE BENITEZ MD Ot Z98.84 BARIATRIC SURGERY STATUS 09/23/2016 MOE BENITEZ MD Ot I12.9 HYPERTENSIVE CHRONIC KIDNEY DISEASE W ST 09/23/2016 MOE BENITEZ MD Ot M19.90 UNSPECIFIED OSTEOARTHRITIS, UNSPECIFIED 09/23/2016 MOE BENITEZ MD Ot N18.3 CHRONIC KIDNEY DISEASE, STAGE 3 (MODERAT 09/23/2016 MOE BENITEZ MD Ot Z98.84 BARIATRIC SURGERY STATUS 11/18/2016 CLARISSA MORATAYA DOISON L Ot E04.1 NONTOXIC SINGLE THYROID NODULE 11/18/2016 MORATAYA DO, ELIANA L Ot E21.3 HYPERPARATHYROIDISM, UNSPECIFIED 11/18/2016 MORATAYA DO, ELIANA L Ot M85.80 OTH DISRD OF BONE DENSITY AND STRUCTURE, 11/18/2016 MORATAYA DO, ELIANA L Ot Z98.84 BARIATRIC SURGERY STATUS 11/18/2016 MALGORZATA DO, ELIANA L Ot E04.1 NONTOXIC SINGLE THYROID NODULE 11/18/2016 MORATAYA DO, ELIANA L Ot E21.3 HYPERPARATHYROIDISM, UNSPECIFIED 11/18/2016 MORATAYA DO, ELIANA L Ot M85.80 OTH DISRD OF BONE DENSITY AND STRUCTURE, 11/18/2016 MORATAYA DO, ELIANA L Ot Z98.84 BARIATRIC SURGERY STATUS 07/06/2017 Ot V76.12 OTH SCREEN MAMMO- MALIGN NEOPLASM OF LES 07/06/2017 Ot 840.4 SPRA IN ROTATOR CUFF 07/06/2017 SANDIP MASCORRO APRN Ot 782.2 LOCAL SUPRFICIAL SWELLNG 07/06/2017 VANDANA ARENAS, RAMIN Morin Ot 211.3 BENIGN NEOPLASM LG BOWEL 07/06/2017 VANDANA ARENAS, RAMIN Morin Ot 562.10 DIVERTICULOSIS COLON (W/O MENT OF HEMORR 07/06/2017 VANDANA ARENAS, RAMIN Morin Ot V16.0 FAMILY HX-GI MALIGNANCY 07/06/2017 VANDANA ARENAS, RAMIN Morin Ot V76.51 SCREEN MAL NEOP-COLON 07/06/2017 VANDANA ARENAS, RAMIN Morin Ot V72.84 EXAM PRE-OPERATIVE NOS 07/06/2017 CAITLIN QUESADA EARLY CHILDHOOD Ot V65.49 OTHER SPECIFIED COUNSELING 07/06/2017 CAITLIN QUESADA EARLY CHILDHOOD Ot V76.12 OTH SCREEN MAMMO-MALIGN NEOPLASM OF LES 07/06/2017 CAITLIN QUESADA EARLY CHILDHOOD Ot V82.81 SCREENING FOR OSTEOPOROSIS 07/06/2017 CAITLIN QUESADA EARLY CHILDHOOD Ot 733.90 BONE CARTILAGE DIS NOS 07/06/2017 CAITLIN QUESADA EARLY CHILDHOOD Ot V82.81 SCREENING FOR OSTEOPOROSIS 07/06/2017 Ot V72.84 EXA M PRE- OPERATIVE NOS 07/06/2017 FRENCH DPPatience, ERIKA Q Ot 715. 33 LOC OSTEOART NOS-FOREARM 07/06/2017 FRENCH DPM, ERIKA Q Ot V72. 83 EXAM PRE-OPERATIVE NEC 07/06/2017 FRENCH DPM, ERIKA Q Ot V74. 8 SCREEN-BACTERIAL DIS NEC 07/06/2017 MOE BENITEZ MD Ot I12.9 HYPERTENSIVE CHRONIC KIDNEY DISEASE W ST 07/06/2017 MOE BENITEZ MD Ot N18.3 CHRONIC KIDNEY DISEASE, STAGE 3 (MODERAT 07/06/2017 CLARISSA MORATAYA DOISON L Ot M85.89 OTH DISRD OF BONE DENSITY AND STRUCTURE, 07/06/2017 STEPHAN CORDERO Ot R22.1 LOCALIZED SWELLING, MASS AND LUMP, NECK 07/06/2017 STEPHAN CORDERO Ot R22.1 LOCALIZED SWELLING, MASS AND LUMP, NECK 07/06/2017 TONYA LIMA DO Ot E04. 1 NONTOXIC SINGLE THYROID NODULE 07/06/2017 MORATAYAELIANA Pardo DO Ot E04.1 NONTOXIC SINGLE THYROID NODULE 07/06/2017 ELIANA MORATAYA DO L Ot E21.3 HYPERPARATHYROIDISM, UNSPECIFIED 07/06/2017 MORATAYACLARISSA Pardo DOISON L Ot M85.80 OTH DISRD OF BONE DENSITY AND STRUCTURE, 07/06/2017 ELIANA MORATAYA DO Ot Z98.84 BARIATRIC SURGERY STATUS 07/06/2017 MOE BENITEZ MD Ot I12.9 HYPERTENSIVE CHRONIC KIDNEY DISEASE W ST 07/06/2017 MOE BENITEZ MD Ot M19.90 UNSPECIFIED OSTEOARTHRITIS, UNSPECIFIED 07/06/2017 MOE BENITEZ MD Ot N18.3 CHRONIC KIDNEY DISEASE, STAGE 3 (MODERAT 07/06/2017 MOE BENITEZ MD Ot Z98.84 BARIATRIC SURGERY STATUS 07/07/2017 FRENCH DPM, ERIKA Q Ot G57. 82 OTHER SPECIFIED MONONEUROPATHIES OF LEFT 07/07/2017 FRENCH DPM, ERIKA Q Ot M20. 42 OTHER HAMMER TOE(S) (ACQUIRED), LEFT RENNY 07/07/2017 FRENCH DPM, ERIKA Q Ot M89.372 HYPERTROPHY OF BONE, LEFT ANKLE AND FOOT 07/07/2017 FRENCH DPM, ERIKA Q Ot Z01.818 ENCOUNTER FOR OTHER PREPROCEDURAL EXAMIN 07/07/2017 FRENCH DPM, ERIKA Q Ot Z11. 2 ENCOUNTER FOR SCREENING FOR OTHER BACTER 07/20/2017 FRENCH DPM, ERIKA Q Ot G57. 82 OTHER SPECIFIED MONONEUROPATHIES OF LEFT 07/20/2017 FRENCH DPM, ERIKA Q Ot I12. 9 HYPERTENSIVE CHRONIC KIDNEY DISEASE W ST 07/20/2017 FRENCH DPM, ERIKA Q Ot K21. 9 GASTRO-ESOPHAGEAL REFLUX DISEASE WITHOUT 07/20/2017 FRENCH DPM, ERIKA Q Ot M20. 42 OTHER HAMMER TOE(S) (ACQUIRED), LEFT RENNY 07/20/2017 FRENCH DPM, ERIKA Q Ot M79. 7 FIBROMYALGIA 07/20/2017 FRENCH DPM, ERIKA Q Ot M81. 0 AGE-RELATED OSTEOPOROSIS W/O CURRENT PAT 07/20/2017 FRENCH DPM, ERIKA Q Ot M89.372 HYPERTROPHY OF BONE, LEFT ANKLE AND FOOT 07/20/2017 FRENCH DPM, ERIKA Q Ot N18. 3 CHRONIC KIDNEY DISEASE, STAGE 3 (MODERAT 07/20/2017 FRENCH DPM, ERIKA Q Ot Z79.899 OTHER GUEST SERVICES DIRECTOR (CURRENT) DRUG THERAPY 07/20/2017 FRENCH DPM, ERIKA Q Ot Z88. 8 ALLERGY STATUS TO OTH DRUG/MEDS/BIOL SUB 07/21/2017 FRENCH DPM, ERIKA Q Ot G57. 82 OTHER SPECIFIED MONONEUROPATHIES OF LEFT 07/21/2017 FRENCH DPM, ERIKA Q Ot I12. 9 HYPERTENSIVE CHRONIC KIDNEY DISEASE W ST 07/21/2017 FRENCH DPM, ERIKA Q Ot K21. 9 GASTRO-ESOPHAGEAL REFLUX DISEASE WITHOUT 07/21/2017 FRENCH DPM, ERIKA Q Ot M20. 42 OTHER HAMMER TOE(S) (ACQUIRED), LEFT RENNY 07/21/2017 FRENCH DPM, ERIKA Q Ot M79. 7 FIBROMYALGIA 07/21/2017 FRENCH DPM, ERIKA Q Ot M81. 0 AGE-RELATED OSTEOPOROSIS W/O CURRENT PAT 07/21/2017 FRENCH DPM, ERIKA Q Ot M89.372 HYPERTROPHY OF BONE, LEFT ANKLE AND FOOT 07/21/2017 FRENCH DPM, ERIKA Q Ot N18. 3 CHRONIC KIDNEY DISEASE, STAGE 3 (MODERAT 07/21/2017 FRENCH DPM, ERIKA Q Ot Z79.899 OTHER INTERMEDIATE (CURRENT) DRUG THERAPY 07/21/2017 FRENCH DPM, ERIKA Q Ot Z88. 8 ALLERGY STATUS TO OTH DRUG/MEDS/BIOL SUB 08/20/2017 CAITLIN QUESADA EARLY CHILDHOOD Ot V65.49 OTHER SPECIFIED COUNSELING 08/20/2017 CAITLIN QUESADA EARLY CHILDHOOD Ot V76.12 OTH SCREEN MAMMO-MALIGN NEOPLASM OF LES 08/20/2017 CAITLIN QUESADA EARLY CHILDHOOD Ot V82.81 SCREENING FOR OSTEOPOROSIS 08/20/2017 AYALA QUESADAIDI Lashanda EARLY CHILDHOOD Ot 733.90 BONE CARTILAGE DIS NOS 08/20/2017 AYALA QUESADAIDI A EARLY CHILDHOOD Ot V82.81 SCREENING FOR OSTEOPOROSIS 08/22/2017 AYALA QUESADAIDI Lashanda EARLY CHILDHOOD Ot V65.49 OTHER SPECIFIED COUNSELING 08/22/2017 CAITLIN QUESADA EARLY CHILDHOOD Ot V76.12 OTH SCREEN MAMMO-MALIGN NEOPLASM OF LES 08/22/2017 CAITLIN QUESADA EARLY CHILDHOOD Ot V82.81 SCREENING FOR OSTEOPOROSIS 08/22/2017 CAITLIN QUESADA EARLY CHILDHOOD Ot 733.90 BONE CARTILAGE DIS NOS 08/22/2017 AYALA QUESADAIDI A EARLY CHILDHOOD Ot V82.81 SCREENING FOR OSTEOPOROSIS 09/14/2017 RAMIN COLORADO MD Ot Z01.818 ENCOUNTER FOR OTHER PREPROCEDURAL EXAMIN 09/14/2017 RAMIN [place]ORADO MD Ot Z80.0 FAMILY HISTORY OF MALIGNANT NEOPLASM OF 09/14/2017 RAMIN COLORADO MD Ot Z86.010 PERSONAL HISTORY OF COLONIC POLYPS 09/15/2017 RAMIN COLORADO MD Ot Z01.818 ENCOUNTER FOR OTHER PREPROCEDURAL EXAMIN 09/15/2017 RAMIN COLORADO MD Ot Z80.0 FAMILY HISTORY OF MALIGNANT NEOPLASM OF 09/15/2017 RAMIN COLORADO MD Ot Z86.010 PERSONAL HISTORY OF COLONIC POLYPS 09/21/2017 RAMIN COLORADO MD Ot I1 0 ESSENTIAL (PRIMARY) HYPERTENSION 09/21/2017 RAMIN COLORADO MD Ot K21.9 GASTRO-ESOPHAGEAL REFLUX DISEASE WITHOUT 09/21/2017 RAMIN COLORADO MD Ot K57.30 DVRTCLOS OF LG INT W/O PERFORATION OR AB 09/21/2017 RAMIN COLORADO MD Ot K59.09 OTHER CONSTIPATION 09/21/2017 RAMIN COLORADO MD Ot M79.7 FIBROMYALGIA 09/21/2017 RAMIN COLORADO MD Ot Z79.899 OTHER INTERMEDIATE (CURRENT) DRUG THERAPY 09/21/2017 RAMIN COLORADO MD Ot Z80.0 FAMILY HISTORY OF MALIGNANT NEOPLASM OF 09/21/2017 RAMIN COLORADO MD Ot Z86.010 PERSONAL HISTORY OF COLONIC POLYPS 09/21/2017 RAMIN COLORADO MD Ot Z88.8 ALLERGY STATUS TO OTH DRUG/MEDS/BIOL SUB 09/22/2017 RAMIN COLORADO MD Ot I1 0 ESSENTIAL (PRIMARY) HYPERTENSION 09/22/2017 RAMIN COLORADO MD Ot K21.9 GASTRO-ESOPHAGEAL REFLUX DISEASE WITHOUT 09/22/2017 RAMIN COLORADO MD Ot K57.30 DVRTCLOS OF LG INT W/O PERFORATION OR AB 09/22/2017 RAMIN COLORADO MD Ot K59.09 OTHER CONSTIPATION 09/22/2017 RAMIN COLORADO MD Ot M79.7 FIBROMYALGIA 09/22/2017 RAMIN COLORADO MD Ot Z79.899 OTHER GUEST SERVICES DIRECTOR (CURRENT) DRUG THERAPY 09/22/2017 RAMIN COLORADO MD Ot Z80.0 FAMILY HISTORY OF MALIGNANT NEOPLASM OF 09/22/2017 RAMIN COLORADO MD Ot Z86.010 PERSONAL HISTORY OF COLONIC POLYPS 09/22/2017 RAMIN COLORADO MD Ot Z88.8 ALLERGY STATUS TO OTH DRUG/MEDS/BIOL SUB 11/16/2017 CAITLIN QUESADA EARLY CHILDHOOD Ot V65.49 OTHER SPECIFIED COUNSELING 11/16/2017 CAITLIN QUESADA EARLY CHILDHOOD Ot V76.12 OTH SCREEN MAMMO-MALIGN NEOPLASM OF LES 11/16/2017 CAITLIN QUESADA EARLY CHILDHOOD Ot V82.81 SCREENING FOR OSTEOPOROSIS 11/16/2017 CAITLIN QUSEADA EARLY CHILDHOOD Ot 733.90 BONE CARTILAGE DIS NOS 11/16/2017 CAITLIN QUESADA EARLY CHILDHOOD Ot V82.81 SCREENING FOR OSTEOPOROSIS 01/13/2018 CAITLIN QUESADA EARLY CHILDHOOD Ot V65.49 OTHER SPECIFIED COUNSELING 01/13/2018 CAITLIN QUESADA APRN Ot V76.12 OTH SCREEN MAMMO-MALIGN NEOPLASM OF LES 01/13/2018 CAITLIN QUESADA EARLY CHILDHOOD Ot V82.81 SCREENING FOR OSTEOPOROSIS 01/13/2018 CAITLIN QUESADA EARLY CHILDHOOD Ot 733.90 BONE CARTILAGE DIS NOS 01/13/2018 CAITLIN QUESADA EARLY CHILDHOOD Ot V82.81 SCREENING FOR OSTEOPOROSIS 08/23/2018 VANDANA ARENAS, RAMIN Morin Ot 211.3 BENIGN NEOPLASM LG BOWEL 08/23/2018 VANDANA ARENAS, RAMIN Morin Ot 562.10 DIVERTICULOSIS COLON (W/O MENT OF HEMORR 08/23/2018 VANDANA ARENAS, RAMIN Morin Ot V16.0 FAMILY HX-GI MALIGNANCY 08/23/2018 VANDANA ARENAS, RAMIN Morin Ot V76.51 SCREEN MAL NEOP-COLON 08/23/2018 VANDANA ARENAS, RAMIN Morin Ot V72.84 EXAM PRE-OPERATIVE NOS 08/23/2018 CAITLIN QUESADA EARLY CHILDHOOD Ot V65.49 OTHER SPECIFIED COUNSELING 08/23/2018 CAITLIN QUESADA EARLY CHILDHOOD Ot V76.12 OTH SCREEN MAMMO-MALIGN NEOPLASM OF LES 08/23/2018 CAITLIN QUESADA EARLY CHILDHOOD Ot V82.81 SCREENING FOR OSTEOPOROSIS 08/23/2018 CAITLIN QUESADA EARLY CHILDHOOD Ot 733.90 BONE CARTILAGE DIS NOS 08/23/2018 DIPAK, CAITLIN Pyle EARLY CHILDHOOD Ot V82.81 SCREENING FOR OSTEOPOROSIS 08/23/2018 Ot V72.84 EXA M PRE- OPERATIVE NOS 08/23/2018 FRENCH DPM, ERIKA Q Ot 715. 33 LOC OSTEOART NOS-FOREARM 08/23/2018 FRENCH DPM, ERIKA Q Ot V72. 83 EXAM PRE-OPERATIVE NEC 08/23/2018 FRENCH DPM, ERIKA Q Ot V74. 8 SCREEN-BACTERIAL DIS NEC 08/23/2018 EMMANUEL ARENAS, MOE Ot I12.9 HYPERTENSIVE CHRONIC KIDNEY DISEASE W ST 08/23/2018 EMMANUEL ARENAS, MOE Ot N18.3 CHRONIC KIDNEY DISEASE, STAGE 3 (MODERAT 08/23/2018 ELIANA MORATAYA DO Ot M85.89 OTH DISRD OF BONE DENSITY AND STRUCTURE, 08/23/2018 GIL, STEPHAN T PLASTERER JOURNEYMAN Ot R22.1 LOCALIZED SWELLING, MASS AND LUMP, NECK 08/23/2018 STEPHAN CORDERO Ot R22.1 LOCALIZED SWELLING, MASS AND LUMP, NECK 08/23/2018 LIMA TONYA Ot E04. 1 NONTOXIC SINGLE THYROID NODULE 08/23/2018 DO, ELIANA L Ot E04.1 NONTOXIC SINGLE THYROID NODULE 08/23/2018 DO, ELIANA L Ot E21.3 HYPERPARATHYROIDISM, UNSPECIFIED 08/23/2018 DO, ELIANA L Ot M85.80 OT DISRD OF BONE DENSITY AND STRUCTURE, 08/23/2018 MORATAYA DO, ELIANA L Ot Z98.84 BARIATRIC SURGERY STATUS 08/23/2018 EMMANUEL ARENAS, MOE Ot I12.9 HYPERTENSIVE CHRONIC KIDNEY DISEASE W ST 08/23/2018 EMMANUEL ARENAS, MOE Ot M19.90 UNSPECIFIED OSTEOARTHRITIS, UNSPECIFIED 08/23/2018 EMMANUEL ARENAS, MOE Ot N18.3 CHRONIC KIDNEY DISEASE, STAGE 3 (MODERAT 08/23/2018 EMMANUEL ARENAS, MOE Ot Z98.84 BARIATRIC SURGERY STATUS 08/25/2018 STEPHAN CORDERO PLASTERER JOURNEYMAN Ot M48.061 SPINAL STENOSIS, LUMBAR REGION WITHOUT N 08/25/2018 STEPHAN CORDERO PLASTERER JOURNEYMAN Ot M51.26 OTHER INTERVERTEBRAL DISC DISPLACEMENT, 09/03/2018 STEPHAN CORDERO PLASTERER JOURNEYMAN Ot M48.061 SPINAL STENOSIS, LUMBAR REGION WITHOUT N 09/03/2018 STEPHAN CORDERO PLASTERER JOURNEYMAN Ot M51.26 OTHER INTERVERTEBRAL DISC DISPLACEMENT, 10/25/2018 STEPHAN CORDERO PLASTERER JOURNEYMAN Ot M48.061 SPINAL STENOSIS, LUMBAR REGION WITHOUT N 10/25/2018 STEPHAN CORDERO PLASTERER JOURNEYMAN Ot M51.26 OTHER INTERVERTEBRAL DISC DISPLACEMENT, 11/29/2018 STEPHAN CORDERO PLASTERER JOURNEYMAN Ot M48.061 SPINAL STENOSIS, LUMBAR REGION WITHOUT N 11/29/2018 STEPHAN CORDERO PLASTERER JOURNEYMAN Ot M51.26 OTHER INTERVERTEBRAL DISC DISPLACEMENT, 03/29/2019 MORATAYA DO, ELIANA L Ot E21.3 HYPERPARATHYROIDISM, UNSPECIFIED 04/01/2019 MORATAYA DO, ELIANA L Ot E21.3 HYPERPARATHYROIDISM, UNSPECIFIED 04/05/2019 MORATAYA DO, ELIANA L Ot E21.3 HYPERPARATHYROIDISM, UNSPECIFIED 04/08/2019 DO, ELIANA L Ot E21.3 HYPERPARATHYROIDISM, UNSPECIFIED 04/08/2019 DO, ELIANA L Ot M85.80 OTH DISRD OF BONE DENSITY AND STRUCTURE, 04/08/2019 MORATAYA DO, ELIANA L Ot Z13.820 ENCOUNTER FOR SCREENING FOR OSTEOPOROSIS 04/11/2019 MORATAYA DO, ELIANA L Ot E21.3 HYPERPARATHYROIDISM, UNSPECIFIED 04/11/2019 MORATAYA DO, ELIANA L Ot M85.80 OTH DISRD OF BONE DENSITY AND STRUCTURE, 04/11/2019 DO, ELIANA L Ot Z13.820 ENCOUNTER FOR SCREENING FOR OSTEOPOROSIS 05/03/2019 NURIS VANG EARLY CHILDHOOD Ot Z12.31 ENCNTR SCREEN MAMMOGRAM FOR MALIGNANT NE 05/03/2019 NURIS VANG EARLY CHILDHOOD Ot Z12.31 ENCNTR SCREEN MAMMOGRAM FOR MALIGNANT NE 05/17/2019 EMMANUEL ARENAS, MOE Ot I12.9 HYPERTENSIVE CHRONIC KIDNEY DISEASE W ST 05/17/2019 EMMANUEL ARENAS, MOE Ot I95.1 ORTHOSTATIC HYPOTENSION 05/17/2019 EMMANUEL ARENAS, MOE Ot M19.90 UNSPECIFIED OSTEOARTHRITIS, UNSPECIFIED 05/17/2019 EMMANUEL ARENAS, MOE Ot N18.3 CHRONIC KIDNEY DISEASE, STAGE 3 (MODERAT 05/17/2019 EMMANUEL ARENAS, MOE Ot Z98.84 BARIATRIC SURGERY STATUS 06/20/2019 MORATAYA , ELIANA L Ot E03.8 OTHER SPECIFIED HYPOTHYROIDISM 06/20/2019 MORATAYA DO, ELIANA L Ot E21.3 HYPERPARATHYROIDISM, UNSPECIFIED 06/20/2019 MORATAYA , ELIANA L Ot M85.80 OTH DISRD OF BONE DENSITY AND STRUCTURE, 07/13/2019 STEPHAN CORDERO Ot M48.061 SPINAL STENOSIS, LUMBAR REGION WITHOUT N 07/13/2019 STEPHAN CORDERO Ot M51.26 OTHER INTERVERTEBRAL DISC DISPLACEMENT, 07/15/2019 STEPHAN CORDERO Ot M23.8X2 OTHER INTERNAL DERANGEMENTS OF LEFT KNEE 07/15/2019 STEPHAN CORDERO Ot M25.462 EFFUSION, LEFT KNEE 08/03/2019 GIL, STEPHAN T PLASTERER JOURNEYMAN Ot M23.8X2 OTHER INTERNAL DERANGEMENTS OF LEFT KNEE 08/03/2019 STEPHAN CORDERO Ot M25.462 EFFUSION, LEFT KNEE 08/04/2019 SRIKANTH ACOSTAP Ot M76. 52 PATELLAR TENDINITIS, LEFT KNEE 08/11/2019 SRIKANTH ACOSTAP Ot M76. 52 PATELLAR TENDINITIS, LEFT KNEE 08/17/2019 STEPHAN CORDERO Ot M48.061 SPINAL STENOSIS, LUMBAR REGION WITHOUT N 08/17/2019 STEPHAN CORDEROP Ot M51.26 OTHER INTERVERTEBRAL DISC DISPLACEMENT, 08/17/2019 STEPHAN CORDEROP Ot M23.8X2 OTHER INTERNAL DERANGEMENTS OF LEFT KNEE 08/17/2019 STEPHAN CORDERO Ot M25.462 EFFUSION, LEFT KNEE 08/17/2019 SRIKANTH ACOSTA PLASTERER JOURNEYMAN Ot M76. 52 PATELLAR TENDINITIS, LEFT KNEE 08/19/2019 ELIANA MORATAYA DO Ot M85.80 OT DISRD OF BONE DENSITY AND STRUCTURE, 01/09/2020 EMMANUEL ARENAS, MOE Ot I12.9 HYPERTENSIVE CHRONIC KIDNEY DISEASE W ST 01/09/2020 EMMANUEL ARENAS, MOE Ot I95.1 ORTHOSTATIC HYPOTENSION 01/09/2020 EMMANUEL ARENAS, MOE Ot M19.90 UNSPECIFIED OSTEOARTHRITIS, UNSPECIFIED 01/09/2020 EMMANUEL ARENAS, MOE Ot N18.3 CHRONIC KIDNEY DISEASE, STAGE 3 (MODERAT 01/09/2020 EMMANUEL ARENAS, MOE Ot Z98.84 BARIATRIC SURGERY STATUS Procedures Code Description Performed By Per formed On Orthopedi Srikanth Acosta 07/13/2012 49674 MAMM OGRAM, SCREENING 08/03/2012 94819 PAP SMEAR 08/03/2012 Q0091 PAP SMEAR OBTAIN SMEAR 08/03/2012 67053 HEMOCCULT 08/03/2012 44927 HEMOCCULT 08/04/2012 26290 HEMOCCULT 08/04/2012 95821 HEMOCCULT 08/04/2012 33500 HEMOCCULT 08/04/2012 71201 TSH 08/30/2012 42701 UA W / CULTURE IF INDICATED 08/30/2012 56469 ROUT INE VENIPUNCTURE 08/30/2012 79913 CBC 08/30/2012 19605 CMP 08/30/2012 91815 LIPI D PANEL 08/30/2012 [id number] GF R CALC (RESULT ONLY) 08/30/2012 50807 JOIN T INJECTION- INTERMEDIATE JOINT 09/02/2012 85153 MRI EXTREMITY, UPPER LEFT, W/O CONTRAST 10/15/2012 Physical P hysical Therapy, [facility] 10/19/2012 04454 US U PPER EXTREMITY ULTRASOUND 10/19/2012 53570 ROUT INE VENIPUNCTURE 11/17/2012 37252 A1C (IN-HOUSE) 11/17/2012 32788 BMP 11/17/2012 8324917 GF R CALC (RESULT ONLY) 11/17/2012 28362 VIT B 12 11/17/2012 29060 ROUT INE VENIPUNCTURE 11/29/2012 88835 BMP 11/29/2012 3460117 GF R CALC (RESULT ONLY) 11/29/2012 66109 ROUT INE VENIPUNCTURE 12/14/2012 29607 BMP 12/14/2012 1591297 GF R CALC (RESULT ONLY) 12/14/2012 51287 JOIN T INJECTION- INTERMEDIATE JOINT 01/13/2013 61506 ROUT INE VENIPUNCTURE 02/07/2013 97234 BMP 02/07/2013 5211620 GF R CALC (RESULT ONLY) 02/07/2013 09234 XRAY CHEST 2 VIEW 02/21/2013 S Ramin [place] 02/21/2013 26296 BMP 04/08/2013 28428 GFR 04/08/2013 44847 ROUT INE VENIPUNCTURE 04/08/2013 J3420 cyan ocobalamin (vitamin B-12) 1,000 mcg/mL Syringe 04/12/2013 16570 ROUT INE VENIPUNCTURE 06/06/2013 2172147 GF R CALC (RESULT ONLY) 06/07/2013 62880 BMP 06/07/2013 53234 THER APUTIC INJ SQ/IM 08/01/2013 J3420 B12 VITAMIN INJECTION 08/01/2013 J3420 cyan ocobalamin (vitamin B-12) 1,000 mcg/mL syringe 08/31/2013 77625 ROUT INE VENIPUNCTURE 09/07/2013 04906 CMP 09/07/2013 07171 LIPI D PANEL 09/07/2013 41016 TSH 09/07/2013 80347 CBC 09/07/2013 81326 MAMM OGRAM, SCREENING 10/18/2013 63592 BONE DENSITY, DEXA 11/07/2013 27413 BONE MINERAL DENSITY, HEEL US (IN HOUSE) 11/07/2013 50732 INJ TENDON SHEATH/LIGAMENT 11/10/2013 52969 JOIN T INJECTION- INTERMEDIATE JOINT 11/10/2013 65428 ROUT INE VENIPUNCTURE 11/23/2013 47615 UA W / CULTURE IF INDICATED 11/23/2013 25568 CULT URE URINE 11/23/2013 PODIATRY W ILDE, ERIKA 11/23/2013 71925 A1C (IN-HOUSE) 11/23/2013 8561484 GF R CALC (RESULT ONLY) 11/23/2013 94753 BMP 11/23/2013 48684 THER APUTIC INJ SQ/IM 12/06/2013 J3420 B12 VITAMIN INJECTION 12/06/2013 56861 XRAY LUMBAR SPINE 2 OR 3 VIEWS 03/21/2014 J3420 B12 VITAMIN INJECTION 04/04/2014 55707 PSYC H DIAGNOSTIC EVALUATION 04/12/2014 37681 PSYC HO TESTING 1 HR W TECH 04/27/2014 34084 PSYT X PT&/FAMILY 30 MINUTES 05/11/2014 23561 ROUT INE VENIPUNCTURE 08/07/2014 65526 PTH (intact) (ORDER ONLY) 08/07/2014 Endocrino Eliana Morataya 08/10/2014 33600 ROUT INE VENIPUNCTURE 10/06/2014 48295 SALLIE MIN D 25-HYDROXY (D2,D3, TOTAL) 10/06/2014 67229 VIT B 12 10/06/2014 70032 CMP 10/06/2014 79309 MAGNESIUM 10/06/2014 44795 PHOS PHORUS 10/06/2014 6408304 GF R CALC (RESULT ONLY) 10/06/2014 00902 THER APUTIC INJ SQ/IM 10/13/2014 J3420 B12 VITAMIN INJECTION 10/13/2014 Results Test Result Range Comp. Metabolic Panel (14) - 03/19/16 08 :17 Glucose, Serum 89 mg/dL 65-99 BUN 23 mg/dL 8-27 Creatinine, Serum 1.08 mg/dL 0.57-1.00 eGFR If NonAfricn Am 54 mL/min/1.73 >59 eGFR If Africn Am 62 mL/min/1.73 >59 BUN/Creatinine Ratio 21 11-26 Sodium, Serum 141 mmol/L 134-144 Potassium, Serum 4.7 mmol/L 3.5-5.2 Chloride, Serum 103 mmol/L 97-108 Carbon Dioxide, Total 21 mmol/L 18-29 Calcium, Serum 8.8 mg/dL 8.7-10.3 Protein, Total, Serum 6.3 g/dL 6.0-8.5 Albumin, Serum 3.8 g/dL 3.6-4.8 Globulin, Total 2.5 g/dL 1.5-4.5 A/G Ratio 1.5 1.1-2.5 Bilirubin, Total 0.2 mg/dL 0.0-1.2 Alkaline Phosphatase, S 110 IU/L 39-117 AST (SGOT) 11 IU/L 0-40 ALT (SGPT) 7 IU/L 0-32 Vitamin D, 25-Hydroxy - 03/19/16 08:17 Vitamin D, 25-Hydroxy 39.3 ng/mL 30.0-10 0.0 PTH, Intact - 03/19/16 08:17 PTH, Intact 99 pg/mL 15-65 T3, Free, Dialysis, LC/MS-MS - 04/21/16 15:49 T3, Free, Dialysis, LC/MS-MS 1.94 pg/mL TSH - 04/21/16 15:49 TSH 1.860 uIU/mL 0.450-4.500 Thyroxine (T4) - 04/21/16 15:49 Thyroxine (T4) 7.6 ug/dL 4.5-12.0 Comprehensive metabolic panel - 05/09/16 10:59 Serum or plasma sodium measurement (moles/volume) 137 mmol/L 135-145 Serum or plasma potassium measurement (moles/volume) 4.3 mmol/L 3.6-5.0 Serum or plasma chloride measurement (moles/volume) 107 mmol/L 98-107 Carbon dioxide 19 mmol/L 21-32 Serum or plasma anion gap determination (moles/volume) 11 mmol/L 5-14 Serum or plasma urea nitrogen measurement (mass/volume ) 16 mg/dL 7-18 Serum or plasma creatinine measurement (mass/volume) 1.13 mg/dL 0.60-1.30 Serum or plasma urea nitrogen/creatinine mass ratio 14 NRG Serum or plasma creatinine measurement w ith calculation of estimated glomerular filtration rate 48 NRG Serum or plasma glucose measurement (mass/volume) 97 mg/dL 70-105 Serum or plasma calcium measurement (mass/volume) 9.2 mg/dL 8.5-10.1 Serum or plasma total bilirubin measurement (mass/volu me) 0.5 mg/dL 0.1-1.0 Serum or plasma alkaline phosphatase jay surement (enzymatic activity/volume) 128 U/L 40-136 Serum or plasma aspartate aminotransfera se measurement (enzymatic activity/volume) 18 U/L 5-34 Serum or plasma alanine aminotransferase measurement (enzymatic activity/volume) 18 U/L 0-55 Serum or plasma protein measurement (mass/volume) 7.4 g/dL 6.4-8.2 Serum or plasma albumin measurement (mass/volume) 4.1 g/dL 3.2-4.5 Comp. Metabolic Panel (14) - 06/16/16 08 :05 Glucose, Serum 90 mg/dL 65-99 BUN 20 mg/dL 8-27 Creatinine, Serum 1.07 mg/dL 0.57-1.00 eGFR If NonAfricn Am 54 mL/min/1.73 >59 eGFR If Africn Am 63 mL/min/1.73 >59 BUN/Creatinine Ratio 19 11-26 Sodium, Serum 142 mmol/L 134-144 Potassium, Serum 4.8 mmol/L 3.5-5.2 Chloride, Serum 106 mmol/L 96-106 Carbon Dioxide, Total 23 mmol/L 18-29 Calcium, Serum 8.7 mg/dL 8.7-10.3 Protein, Total, Serum 6.4 g/dL 6.0-8.5 Albumin, Serum 3.9 g/dL 3.6-4.8 Globulin, Total 2.5 g/dL 1.5-4.5 A/G Ratio 1.6 1.1-2.5 Bilirubin, Total 0.2 mg/dL 0.0-1.2 Alkaline Phosphatase, S 117 IU/L 39-117 AST (SGOT) 12 IU/L 0-40 ALT (SGPT) 10 IU/L 0-32 Creatinine, 24-Hour Urine - 06/16/16 08: 05 Creatinine, Urine 127.4 mg/dL Not Estab. Creatinine, Ur 24hr 866 mg/24 hr 800-180 0 TSH - 06/16/16 08:05 TSH 2.980 uIU/mL 0.450-4.500 Vitamin D, 25-Hydroxy - 06/16/16 08:05 Vitamin D, 25-Hydroxy 51.1 ng/mL 30.0-10 0.0 Phosphorus, Serum - 06/16/16 08:05 Phosphorus, Serum 2.8 mg/dL 2.5-4.5 Magnesium, Serum - 06/16/16 08:05 Magnesium, Serum 1.9 mg/dL 1.6-2.3 PTH, Intact - 06/16/16 08:05 PTH, Intact 90 pg/mL 15-65 Comprehensive Metabolic Panel - 06/25/16 15:07 Albumin 4.3 g/dL 3.6-5.1 ALP 103 U/L 35-130 ALT 7 U/L 6-45 Anion Gap 17 6-14 AST 17 U/L 2-40 BUN 27 mg/dL 5-25 Calcium 9.4 mg/dL 8.3-10.4 Chloride 107 mmol/L 95-114 CO2 22 mEq/L 22-33 Creat 1.13 mg/dL 0.50-1.50 eGFR 48 mL/min/1.73m2 >59 Globulin 2.4 g/dL 2.3-3.5 Glucose 100 mg/dL 70-110 Osmo 296 280-295 Potassium 4.6 mmol/L 3.5-5.3 Sodium 141 mmol/L 134-148 TBil 0.4 mg/dL 0.2-1.2 TP 6.7 g/dL 6.0-8.3 MRSA Screen - 06/25/16 15:07 FINAL CULTURE RESULTS MRSA Negative Nasal Culture MEDIA PLATED Setup at 15:53 on 06/25/2016 Surgical Pathology - 07/01/16 10:22 Surg Path Sent to [facility] Calcium, 24Hr Urine - 07/07/16 12:34 Calcium, Urine <0.8 mg/dL Not Estab. Calcium, Urine 24hr <15.4 mg/24 hr 100.0 -300.0 CBC With Differential/Platelet - 7 08:37 WBC 6.6 x10E3/uL 3.4-10.8 RBC 4.81 x10E6/uL 3.77-5.28 Hemoglobin 13.4 g/dL 11.1-15.9 Hematocrit 41.8 % 34.0-46.6 MCV 87 fL 79-97 MCH 27.9 pg 26.6-33.0 MCHC 32.1 g/dL 31.5-35.7 RDW 14.2 % 12.3-15.4 Platelets 278 x10E3/uL 150-379 Neutrophils 68 % Lymphs 26 % Monocytes 5 % Eos 1 % Basos 0 % Neutrophils (Absolute) 4.6 x10E3/uL 1.4- 7.0 Lymphs (Absolute) 1.7 x10E3/uL 0.7-3.1 Monocytes(Absolute) 0.3 x10E3/uL 0.1-0.9 Eos (Absolute) 0.1 x10E3/uL 0.0-0.4 Baso (Absolute) 0.0 x10E3/uL 0.0-0.2 Immature Granulocytes 0 % Immature Grans (Abs) 0.0 x10E3/uL 0.0-0. 1 Renal Panel (10) - 07/23/16 08:37 Glucose, Serum 93 mg/dL 65-99 BUN 24 mg/dL 8-27 Creatinine, Serum 1.07 mg/dL 0.57-1.00 eGFR If NonAfricn Am 54 mL/min/1.73 >59 eGFR If Africn Am 63 mL/min/1.73 >59 BUN/Creatinine Ratio 22 11-26 Sodium, Serum 141 mmol/L 134-144 Potassium, Serum 4.5 mmol/L 3.5-5.2 Chloride, Serum 102 mmol/L 96-106 Carbon Dioxide, Total 23 mmol/L 18-29 Calcium, Serum 9.0 mg/dL 8.7-10.3 Albumin, Serum 4.3 g/dL 3.6-4.8 Phosphorus, Serum 2.7 mg/dL 2.5-4.5 PTH, Intact - 07/23/16 08:37 PTH, Intact 76 pg/mL 15-65 Whole blood basic metabolic panel - 03/15 08:09 Serum or plasma sodium measurement (moles/volume) 138 mmol/L 135-145 Serum or plasma potassium measurement (moles/volume) 4.2 mmol/L 3.6-5.0 Serum or plasma chloride measurement (moles/volume) 107 mmol/L 98-107 Carbon dioxide 24 mmol/L 21-32 Serum or plasma anion gap determination (moles/volume) 7 mmol/L 5-14 Serum or plasma urea nitrogen measurement (mass/volume ) 27 mg/dL 7-18 Serum or plasma creatinine measurement (mass/volume) 1.21 mg/dL 0.60-1.30 Serum or plasma urea nitrogen/creatinine mass ratio 22 NRG Serum or plasma creatinine measurement w ith calculation of estimated glomerular filtration rate 45 NRG Serum or plasma glucose measurement (mass/volume) 92 mg/dL 70-105 Serum or plasma calcium measurement (mass/volume) 9.0 mg/dL 8.5-10.1 THYROID STIMULATING HORMONE - 08/07/16 0 8:09 THYROID STIMULATING HORMONE 9.34 u[iU]/mL 0.35-4.94 Automated blood complete blood count (he mogram) panel - 08/27/16 13:49 Blood leukocytes automated count (number/volume) 8.4 10*3/uL 4.3-11.0 Blood erythrocytes automated count (number/volume) 4.89 10*6/uL 4.35-5.85 Venous blood hemoglobin measurement (mass/volume) 14.0 g/dL 11.5-16.0 Blood hematocrit (volume fraction) 42 % 35-52 Automated erythrocyte mean corpuscular volume 86 [ foz_us] 80-99 Automated erythrocyte mean corpuscular h emoglobin (mass per erythrocyte) 29 pg 25-34 Automated erythrocyte mean corpuscular h emoglobin concentration measurement (mass/volume) 33 g/dL 32-36 Automated erythrocyte distribution width ratio 13. 4 % 10.0- 14.5 Automated blood platelet count (count/volume) 284 10*3/uL 130-400 Automated blood platelet mean volume measurement 10.6 [foz_us] 7.4-10.4 Serum or plasma renal function panel (Na , K, Cl, CO2, BUN, Cr, glucose,Ca, phos, alb) - 08/27/16 13:49 Serum or plasma sodium measurement (moles/volume) 141 mmol/L 135-145 Serum or plasma potassium measurement (moles/volume) 4.4 mmol/L 3.6-5.0 Serum or plasma chloride measurement (moles/volume) 109 mmol/L 98-107 Carbon dioxide 19 mmol/L 21-32 Serum or plasma anion gap determination (moles/volume) 13 mmol/L 5-14 Serum or plasma urea nitrogen measurement (mass/volume ) 24 mg/dL 7-18 Serum or plasma creatinine measurement (mass/volume) 1.32 mg/dL 0.60-1.30 Serum or plasma urea nitrogen/creatinine mass ratio 18 NRG Serum or plasma creatinine measurement w ith calculation of estimated glomerular filtration rate 40 NRG Serum or plasma glucose measurement (mass/volume) 95 mg/dL 70-105 Serum or plasma calcium measurement (mass/volume) 9.2 mg/dL 8.5-10.1 Serum or plasma albumin measurement (mass/volume) 4.3 g/dL 3.2-4.5 Serum or plasma phosphate measurement (mass/volume) 3.7 mg/dL 2.3-4.7 Urine microalbumin measurement by test s trip (mass/volume) - 08/27/16 13:49 Urine creatinine measurement (mass/volume) 223 % NRG Microalbumin [mass/volume] in urine 10.0 % 0.0-20.0 Microalbumin/creatinine [ratio] in urine 4.5 mg/g{ Cre} 0.0- 30.0 Serum or plasma intact pararthyroid horm one measurement (mass/volume) - 08/27/16 13:49 Serum or plasma intact parathyroid hormone measurement (mass/volume) 98 pg/mL 10-65 Bio-intact parathyroid hormone (PTH) measurement with calcium 9.4 % 8.5-10.5 25-hydroxyvitamin D measurement - 13:49 25-hydroxy vitamin D measurement 38 % 30-100 Complete urinalysis with reflex to cultu re - 08/27/16 13:55 Urine color determination YELLOW NRG Urine clarity determination CLEAR NR G Urine pH measurement by test strip 5 5-9 Specific gravity of urine by test strip 1.025 1.016-1.022 Urine protein assay by test strip, semi-quantitative 1+ NEGATIVE Urine glucose detection by automated test strip NE GATIVE NEGATIVE Erythrocytes detection in urine sediment by light micr oscopy NEGATIVE NEGATIVE Urine ketones detection by automated test strip 1+ NEGATIVE Urine nitrite detection by test strip NEGATIVE NEGATIVE Urine total bilirubin detection by test strip 1+ NEGATIVE Urine urobilinogen measurement by automated test strip (mass/volume) 1 mg/dL NORMAL Urine leukocyte esterase detection by dipstick 3+ NEGATIVE Automated urine sediment erythrocyte cou nt by microscopy (number/high power field) NONE NRG Automated urine sediment leukocyte count by microscopy (number/high power field) [HPF] NRG Bacteria detection in urine sediment by light microsco py TRACE NRG Squamous epithelial cells detection in u rine sediment by light microscopy 5-10 NRG Crystals detection in urine sediment by light microsco py NONE NRG Casts detection in urine sediment by light microscopy NONE NRG Mucus detection in urine sediment by light microscopy NEGATIVE NRG Complete urinalysis with reflex to culture YES NRG Bacterial urine culture - 08/27/16 13:55 Bacterial urine culture [id number] NRG COLONY COUNT <10,000 NRG FTX;REPORTABLE PLEASE NOTIFY MICRO AT [phone] NRG URINE CULTURE RESULTS <10,000/ML NRG FREE TEXT ENTRY [address] REQUESTS A SENSIVITY ON TH IS NRG FREE TEXT ENTRY 3 ISOLATE NRG TSH - 09/18/16 12:31 TSH 4.570 uIU/mL 0.450-4.500 Microalb/Creat Ratio, [facility] Ur - 7 12:09 Creatinine, Urine 156.8 mg/dL Not Estab. Microalbumin, Urine 5.1 ug/mL Not Estab. Microalb/Creat Ratio 3.3 mg/g creat 0.0- 30.0 Renal Panel (10) - 11/17/16 13:09 Glucose, Serum 114 mg/dL 65-99 BUN 25 mg/dL 8-27 Creatinine, Serum 1.26 mg/dL 0.57-1.00 eGFR If NonAfricn Am 44 mL/min/1.73 >59 eGFR If Africn Am 51 mL/min/1.73 >59 BUN/Creatinine Ratio 20 12-28 Sodium, Serum 141 mmol/L 134-144 Potassium, Serum 4.2 mmol/L 3.5-5.2 Chloride, Serum 103 mmol/L 96-106 Carbon Dioxide, Total 20 mmol/L 18-29 Calcium, Serum 9.2 mg/dL 8.7-10.3 Albumin, Serum 4.4 g/dL 3.6-4.8 Phosphorus, Serum 3.3 mg/dL 2.5-4.5 TSH - 11/17/16 13:09 TSH 7.370 uIU/mL 0.450-4.500 TSH - 12/15/16 00:00 TSH 5.980 uIU/mL 0.450-4.500 Rheumatoid Arthritis Factor - 12/25/16 1 4:44 RA Latex Turbid. 13.3 IU/mL 0.0-13.9 RENAL PROFILE - 04/02/17 00:00 Glucose, Serum 88 mg/dL 65-99 BUN 20 mg/dL 8-27 Creatinine, Serum 1.29 mg/dL 0.57-1.00 eGFR If NonAfricn Am 43 mL/min/1.73 >59 eGFR If Africn Am 50 mL/min/1.73 >59 BUN/Creatinine Ratio 16 12-28 Sodium, Serum 143 mmol/L 134-144 Potassium, Serum 4.2 mmol/L 3.5-5.2 Chloride, Serum 103 mmol/L 96-106 Carbon Dioxide, Total 22 mmol/L 18-29 Calcium, Serum 8.9 mg/dL 8.7-10.3 Albumin, Serum 3.9 g/dL 3.6-4.8 Phosphorus, Serum 3.6 mg/dL 2.5-4.5 CBC With Differential/Platelet - 7 00:00 WBC 6.6 x10E3/uL 3.4-10.8 RBC 4.54 x10E6/uL 3.77-5.28 Hemoglobin 12.9 g/dL 11.1-15.9 Hematocrit 39.6 % 34.0-46.6 MCV 87 fL 79-97 MCH 28.4 pg 26.6-33.0 MCHC 32.6 g/dL 31.5-35.7 RDW 14.1 % 12.3-15.4 Platelets 266 x10E3/uL 150-379 Neutrophils 71 % Not Estab. Lymphs 23 % Not Estab. Monocytes 4 % Not Estab. Eos 1 % Not Estab. Basos 0 % Not Estab. Neutrophils (Absolute) 4.7 x10E3/uL 1.4- 7.0 Lymphs (Absolute) 1.5 x10E3/uL 0.7-3.1 Monocytes(Absolute) 0.3 x10E3/uL 0.1-0.9 Eos (Absolute) 0.1 x10E3/uL 0.0-0.4 Baso (Absolute) 0.0 x10E3/uL 0.0-0.2 Immature Granulocytes 1 % Not Esta b. Immature Grans (Abs) 0.0 x10E3/uL 0.0-0. 1 Urinalysis, Complete - 04/02/17 00:00 Specific [place] 1.024 1.005-1.030 pH 7.0 5.0-7.5 Urine-Color Yellow Yellow Appearance Clear Clear WBC Esterase 1+ Negative Protein Negative Negative/Trace Glucose Negative Negative Ketones Negative Negative Occult Blood Negative Negative Bilirubin Negative Negative Urobilinogen,Semi-Qn 1.0 mg/dL 0.2-1.0 Nitrite, Urine Negative Negative Microscopic Examination See below: Microscopic Examination - 04/02/17 00:00 WBC 6-10 /hpf 0 - 5 RBC 0-2 /hpf 0 - 2 Epithelial Cells (non renal) 0-10 /hpf 0 - 10 Crystals Present N/A Crystal Type Calcium Oxalate N/A Mucus Threads Present Not Estab. Bacteria Few None seen/Few Renal Panel (10) - 04/02/17 00:00 Glucose, Serum 88 mg/dL 65-99 BUN 20 mg/dL 8-27 Creatinine, Serum 1.29 mg/dL 0.57-1.00 eGFR If NonAfricn Am 43 mL/min/1.73 >59 eGFR If Africn Am 50 mL/min/1.73 >59 BUN/Creatinine Ratio 16 12-28 Sodium, Serum 143 mmol/L 134-144 Potassium, Serum 4.2 mmol/L 3.5-5.2 Chloride, Serum 103 mmol/L 96-106 Carbon Dioxide, Total 22 mmol/L 18-29 Calcium, Serum 8.9 mg/dL 8.7-10.3 Albumin, Serum 3.9 g/dL 3.6-4.8 Phosphorus, Serum 3.6 mg/dL 2.5-4.5 Microalb/Creat Ratio, [facility] Ur - 7 00:00 Creatinine, Urine 170.6 mg/dL Not Estab. Microalbumin, Urine 3.1 ug/mL Not Estab. Microalb/Creat Ratio 1.8 mg/g creat 0.0- 30.0 Vitamin D, 25-Hydroxy - 04/02/17 00:00 Vitamin D, 25-Hydroxy 44.3 ng/mL 30.0-10 0.0 PTH, Intact - 04/02/17 00:00 PTH, Intact 101 pg/mL 15-65 Methicillin resistant Staphylococcus aur eus (MRSA) screening culture - 07/07/17 13:45 Methicillin resistant Staphylococcus aureus (MRSA) scr eening culture NEG NRG Whole blood basic metabolic panel - 06/30 08/16 06:30 Serum or plasma sodium measurement (moles/volume) 139 mmol/L 135-145 Serum or plasma potassium measurement (moles/volume) 3.9 mmol/L 3.6-5.0 Serum or plasma chloride measurement (moles/volume) 109 mmol/L 98-107 Carbon dioxide 20 mmol/L 21-32 Serum or plasma anion gap determination (moles/volume) 10 mmol/L 5-14 Serum or plasma urea nitrogen measurement (mass/volume ) 16 mg/dL 7-18 Serum or plasma creatinine measurement (mass/volume) 0.98 mg/dL 0.60-1.30 Serum or plasma urea nitrogen/creatinine mass ratio 16 NRG Serum or plasma creatinine measurement w ith calculation of estimated glomerular filtration rate 57 NRG Serum or plasma glucose measurement (mass/volume) 90 mg/dL 70-105 Serum or plasma calcium measurement (mass/volume) 8.7 mg/dL 8.5-10.1 VITAMIN D, 25-H - 09/28/17 13:24 VITAMIN D,25-OH,TOTAL,IA 38 ng/mL 30-10 0 PDM - 09 PANEL (PROFILE 1) - 04/02/18 16 :38 Prescribed Drug 1 Hydrocodone NRG Creatinine 42.9 mg/dL > or = 20.0 pH 5.13 4.5 - 9.0 Oxidant NEGATIVE mcg/mL <200 Amphetamines NEGATIVE ng/mL <500 medMATCH Amphetamines CONSISTENT NRG Benzodiazepines NEGATIVE ng/mL <100 medMATCH Benzodiazepines CONSISTENT NRG Marijuana Metabolite NEGATIVE ng/mL <20 medMATCH Marijuana Metab CONSISTENT NRG Cocaine Metabolite NEGATIVE ng/mL <150 medMATCH Cocaine Metab CONSISTENT NRG Opiates POSITIVE ng/mL <100 Oxycodone NEGATIVE ng/mL <100 medMATCH Oxycodone CONSISTENT NRG COMMENT NRG Codeine NEGATIVE ng/mL <50 medMATCH Codeine CONSISTENT NRG Hydrocodone 609 ng/mL <50 medMATCH Hydrocodone CONSISTENT NRG Hydromorphone 73 ng/mL <50 medMATCH Hydromorphone CONSISTENT NRG Morphine NEGATIVE ng/mL <50 medMATCH Morphine CONSISTENT NRG Norhydrocodone 1278 ng/mL <50 medMATCH Norhydrocodone CONSISTENT NRG Barbiturates NEGATIVE ng/mL <300 medMATCH Barbiturates CONSISTENT NRG Methadone Metabolite NEGATIVE ng/mL <100 medMATCH Methadone Metab CONSISTENT NRG Phencyclidine NEGATIVE ng/mL <25 medMATCH Phencyclidine CONSISTENT NRG PTH (INTACT) - 04/12/18 15:38 CALCIUM 9.2 mg/dL 8.6-10.4 PARATHYROID HORMONE, INTACT 68 pg/mL 14 64 UA W/ MICROSCOPY - 04/12/18 15:38 COLOR DARK YELLOW YELLOW APPEARANCE CLOUDY CLEAR SPECIFIC GRAVITY 1.027 1.001-1.035 PH < OR = 5.0 5.0-8.0 GLUCOSE NEGATIVE NEGATIVE BILIRUBIN NEGATIVE NEGATIVE KETONES NEGATIVE NEGATIVE OCCULT BLOOD NEGATIVE NEGATIVE PROTEIN NEGATIVE NEGATIVE NITRITE NEGATIVE NEGATIVE LEUKOCYTE ESTERASE 2+ NEGATIVE WBC 40-60 /HPF < OR = 5 RBC 0-2 /HPF < OR = 2 SQUAMOUS EPITHELIAL CELLS 10-20 /HPF < O R = 5 BACTERIA NONE SEEN /HPF NONE SEEN HYALINE CAST NONE SEEN /LPF NONE SEEN UA W/ MICROSCOPY - 10/04/18 17:07 COLOR YELLOW YELLOW APPEARANCE CLOUDY CLEAR SPECIFIC GRAVITY 1.014 1.001-1.035 PH < OR = 5.0 5.0-8.0 GLUCOSE NEGATIVE NEGATIVE BILIRUBIN NEGATIVE NEGATIVE KETONES NEGATIVE NEGATIVE OCCULT BLOOD NEGATIVE NEGATIVE PROTEIN NEGATIVE NEGATIVE NITRITE NEGATIVE NEGATIVE LEUKOCYTE ESTERASE 1+ NEGATIVE WBC 6-10 /HPF < OR = 5 RBC 0-2 /HPF < OR = 2 SQUAMOUS EPITHELIAL CELLS 6-10 /HPF < OR = 5 BACTERIA NONE SEEN /HPF NONE SEEN HYALINE CAST NONE SEEN /LPF NONE SEEN T4 FREE - 10/04/18 17:07 T4, FREE 1.3 ng/dL 0.8-1.8 TSH - 10/04/18 17:07 TSH 1.67 mIU/L 0.40-4.50 VITAMIN D, 25-H - 10/04/18 17:07 VITAMIN D,25-OH,TOTAL,IA 33 ng/mL 30-10 0 PTH (INTACT) - 10/04/18 17:07 CALCIUM 9.4 mg/dL 8.6-10.4 PARATHYROID HORMONE, INTACT 115 pg/mL 64 VITAMIN D, 25-H - 03/08/19 08:22 VITAMIN D,25-OH,TOTAL,IA 31 ng/mL 30-10 0 Automated blood complete blood count (he mogram) panel - 05/13/19 08:30 Blood leukocytes automated count (number/volume) 6.5 10*3/uL 4.3-11.0 Blood erythrocytes automated count (number/volume) 4.47 10*6/uL 4.35-5.85 Venous blood hemoglobin measurement (mass/volume) 12.4 g/dL 11.5-16.0 Blood hematocrit (volume fraction) 39 % 35-52 Automated erythrocyte mean corpuscular volume 86 [ foz_us] 80-99 Automated erythrocyte mean corpuscular h emoglobin (mass per erythrocyte) 28 pg 25-34 Automated erythrocyte mean corpuscular h emoglobin concentration measurement (mass/volume) 32 g/dL 32-36 Automated erythrocyte distribution width ratio 13. 5 % 10.0- 14.5 Automated blood platelet count (count/volume) 256 10*3/uL 130-400 Automated blood platelet mean volume measurement 10.4 [foz_us] 7.4-10.4 Serum or plasma intact pararthyroid horm one measurement (mass/volume) - 05/13/19 08:30 Serum or plasma intact parathyroid hormone measurement (mass/volume) 115.4 pg/mL 9.0-77.0 Bio-intact parathyroid hormone (PTH) measurement with calcium 9.0 % 8.5-10.5 VITAMIN D 25-HYDROXY - 05/13/19 08:30 VITAMIN D 25-HYDROXY (TOTAL) 31.9 % 3 0.0-100.0 Complete urinalysis with reflex to cultu re - 05/13/19 08:36 Urine color determination YELLOW NRG Urine clarity determination CLEAR NR G Urine pH measurement by test strip 5.5 5-9 Specific gravity of urine by test strip 1.025 1.016-1.022 Urine protein assay by test strip, semi-quantitative NEGATIVE NEGATIVE Urine glucose detection by automated test strip NE GATIVE NEGATIVE Erythrocytes detection in urine sediment by light micr oscopy NEGATIVE NEGATIVE Urine ketones detection by automated test strip NE GATIVE NEGATIVE Urine nitrite detection by test strip NEGATIVE NEGATIVE Urine total bilirubin detection by test strip NEGA TIVE NEGATIVE Urine urobilinogen measurement by automated test strip (mass/volume) 0.2 mg/dL < = 1.0 Urine leukocyte esterase detection by dipstick 1+ NEGATIVE Automated urine sediment erythrocyte cou nt by microscopy (number/high power field) RARE NRG Automated urine sediment leukocyte count by microscopy (number/high power field) [HPF] NRG Bacteria detection in urine sediment by light microsco py FEW NRG Squamous epithelial cells detection in u rine sediment by light microscopy 10-25 NRG Crystals detection in urine sediment by light microsco py NONE NRG Casts detection in urine sediment by light microscopy NONE NRG Mucus detection in urine sediment by light microscopy NEGATIVE NRG Complete urinalysis with reflex to culture YES NRG Urine protein/creatinine mass ratio - 08:36 Urine protein measurement (mass/volume) 10 mg/dL 6-12 Urine creatinine measurement (mass/volume) 120 mg/ dL 30-125 Urine protein/creatinine mass ratio 0.08 NRG Bacterial urine culture - 05/13/19 08:36 Bacterial urine culture 3 OR MORE NRG COLONY COUNT >100,000/ML NRG FTX;REPORTABLE SUGGESTING PROBABLE COLLECTION NRG FREE TEXT ENTRY 2 CONTAMINATION WITH SKIN ALEIDA NRG FREE TEXT ENTRY 3 NO SUSCEPTIBILITY PERFORMED NRG Whole blood basic metabolic panel - 05/30 09:39 Serum or plasma sodium measurement (moles/volume) 138 mmol/L 135-145 Serum or plasma potassium measurement (moles/volume) 4.2 mmol/L 3.6-5.0 Serum or plasma chloride measurement (moles/volume) 108 mmol/L 98-107 Carbon dioxide 22 mmol/L 21-32 Serum or plasma anion gap determination (moles/volume) 8 mmol/L 5-14 Serum or plasma urea nitrogen measurement (mass/volume ) 21 mg/dL 7-18 Serum or plasma creatinine measurement (mass/volume) 1.30 mg/dL 0.60-1.30 Serum or plasma urea nitrogen/creatinine mass ratio 16 NRG Serum or plasma creatinine measurement w ith calculation of estimated glomerular filtration rate 41 NRG Serum or plasma glucose measurement (mass/volume) 84 mg/dL 70-105 Serum or plasma calcium measurement (mass/volume) 8.8 mg/dL 8.5-10.1 Serum or plasma intact pararthyroid horm one measurement (mass/volume) - 06/17/19 09:39 Serum or plasma intact parathyroid hormone measurement (mass/volume) 107.9 pg/mL 9.0-77.0 Bio-intact parathyroid hormone (PTH) measurement with calcium 8.8 % 8.5-10.5 VITAMIN D 25-HYDROXY - 06/17/19 09:39 VITAMIN D 25-HYDROXY (TOTAL) 33.2 % 3 0.0-100.0 VITAMIN D 25-HYDROXY - 08/17/19 12:44 VITAMIN D 25-HYDROXY (TOTAL) 49.4 % 3 0.0-100.0 THYROID ANTIBODIES - 09/01/19 13:45 THYROID PEROXIDASE ANTIBODIES <1 IU/mL <9 THYROGLOBULIN ANTIBODIES <1 IU/mL < or = 1 CMP - 09/01/19 13:45 GLUCOSE 90 mg/dL 65-99 UREA NITROGEN (BUN) 20 mg/dL 7-25 CREATININE 1.21 mg/dL 0.50-0.99 eGFR NON-AFR. BELGIAN 46 mL/min/1.73m2 > OR = 60 eGFR 53 mL/min/1.73m2 > OR = 60 BUN/CREATININE RATIO 17 (calc) 6-22 SODIUM 138 mmol/L 135-146 POTASSIUM 4.2 mmol/L 3.5-5.3 CHLORIDE 103 mmol/L 98-110 CARBON DIOXIDE 26 mmol/L 20-32 CALCIUM 9.2 mg/dL 8.6-10.4 PROTEIN, TOTAL 6.9 g/dL 6.1-8.1 ALBUMIN 4.1 g/dL 3.6-5.1 GLOBULIN 2.8 g/dL (calc) 1.9-3.7 ALBUMIN/GLOBULIN RATIO 1.5 (calc) 1.0-2. 5 BILIRUBIN, TOTAL 0.4 mg/dL 0.2-1.2 ALKALINE PHOSPHATASE 82 U/L 37-153 AST 11 U/L 10-35 ALT 7 U/L 6-29 CBC - 09/01/19 13:45 WHITE BLOOD CELL COUNT 6.4 Thousand/uL 3 .8-10.8 RED BLOOD CELL COUNT 4.50 Million/uL 3.8 0-5.10 HEMOGLOBIN 12.5 g/dL 11.7-15.5 HEMATOCRIT 39.3 % 35.0-45.0 MCV 87.3 fL 80.0-100.0 MCH 27.8 pg 27.0-33.0 MCHC 31.8 g/dL 32.0-36.0 RDW 13.4 % 11.0-15.0 PLATELET COUNT 303 Thousand/uL 140-400 MPV 10.7 fL 7.5-12.5 ABSOLUTE NEUTROPHILS 4096 cells/uL 1500- 7800 ABSOLUTE LYMPHOCYTES 1882 cells/uL 850-3 900 ABSOLUTE MONOCYTES 333 cells/uL 200-950 ABSOLUTE EOSINOPHILS 70 cells/uL 15-500 ABSOLUTE BASOPHILS 19 cells/uL 0-200 NEUTROPHILS 64 % NRG LYMPHOCYTES 29.4 % NRG MONOCYTES 5.2 % NRG EOSINOPHILS 1.1 % NRG BASOPHILS 0.3 % NRG T4 FREE - 09/01/19 13:45 T4, FREE 1.3 ng/dL 0.8-1.8 T3 TOTAL - 09/01/19 13:45 T3, TOTAL 83 ng/dL 76-181 TSH - 09/01/19 13:45 TSH 2.21 mIU/L 0.40-4.50 VITAMIN B12 - 09/01/19 13:45 VITAMIN B12 199 pg/mL 200-1100 MAGNESIUM SERUM - 12/08/19 14:28 MAGNESIUM 2.0 mg/dL 1.5-2.5 IRON + TIBC - 12/08/19 14:28 IRON, TOTAL 49 mcg/dL 45-160 IRON BINDING CAPACITY 341 mcg/dL (calc) 250-450 % SATURATION 14 % (calc) 16-45 CBC - 12/08/19 14:28 WHITE BLOOD CELL COUNT 7.2 Thousand/uL 3 .8-10.8 RED BLOOD CELL COUNT 4.46 Million/uL 3.8 0-5.10 HEMOGLOBIN 12.6 g/dL 11.7-15.5 HEMATOCRIT 38.4 % 35.0-45.0 MCV 86.1 fL 80.0-100.0 MCH 28.3 pg 27.0-33.0 MCHC 32.8 g/dL 32.0-36.0 RDW 13.5 % 11.0-15.0 PLATELET COUNT 294 Thousand/uL 140-400 MPV 10.3 fL 7.5-12.5 ABSOLUTE NEUTROPHILS 5011 cells/uL 1500- 7800 ABSOLUTE LYMPHOCYTES 1714 cells/uL 850-3 900 ABSOLUTE MONOCYTES 374 cells/uL 200-950 ABSOLUTE EOSINOPHILS 79 cells/uL 15-500 ABSOLUTE BASOPHILS 22 cells/uL 0-200 NEUTROPHILS 69.6 % NRG LYMPHOCYTES 23.8 % NRG MONOCYTES 5.2 % NRG EOSINOPHILS 1.1 % NRG BASOPHILS 0.3 % NRG TSH - 12/08/19 14:28 TSH 2.11 mIU/L 0.40-4.50 VITAMIN D, 25-H - 12/08/19 14:28 VITAMIN D,25-OH,TOTAL,IA 54 ng/mL 30-10 0 PTH (INTACT) - 12/08/19 14:28 CALCIUM 9.5 mg/dL 8.6-10.4 PARATHYROID HORMONE, INTACT 56 pg/mL 14 -64 VITAMIN B12 - 12/08/19 14:28 VITAMIN B12 239 pg/mL 200-1100 Urine protein/creatinine mass ratio - 09:50 Urine protein measurement (mass/volume) 13 mg/dL 6-12 Urine creatinine measurement (mass/volume) 162 mg/ dL 30-125 Urine protein/creatinine mass ratio 0.08 NRG Serum or plasma renal function panel (Na , K, Cl, CO2, BUN, Cr, glucose,Ca, phos, alb) - 01/06/20 09:50 Serum or plasma sodium measurement (moles/volume) 141 mmol/L 135-145 Serum or plasma potassium measurement (moles/volume) 3.8 mmol/L 3.6-5.0 Serum or plasma chloride measurement (moles/volume) 108 mmol/L 98-107 Carbon dioxide 23 mmol/L 21-32 Serum or plasma anion gap determination (moles/volume) 10 mmol/L 5-14 Serum or plasma urea nitrogen measurement (mass/volume ) 15 mg/dL 7-18 Serum or plasma creatinine measurement (mass/volume) 1.22 mg/dL 0.60-1.30 Serum or plasma urea nitrogen/creatinine mass ratio 12 NRG Serum or plasma creatinine measurement w ith calculation of estimated glomerular filtration rate 44 NRG Serum or plasma glucose measurement (mass/volume) 90 mg/dL 70-105 Serum or plasma calcium measurement (mass/volume) 9.1 mg/dL 8.5-10.1 Serum or plasma albumin measurement (mass/volume) 4.0 g/dL 3.2-4.5 Serum or plasma phosphate measurement (mass/volume) 3.2 mg/dL 2.3-4.7 Serum or plasma intact pararthyroid horm one measurement (mass/volume) - 01/06/20 09:50 Serum or plasma intact parathyroid hormone measurement (mass/volume) 80.6 pg/mL 9.0-77.0 Bio-intact parathyroid hormone (PTH) measurement with calcium 9.2 % 8.5-10.5 VITAMIN D 25-HYDROXY - 01/06/20 09:50 VITAMIN D 25-HYDROXY (TOTAL) 51.6 % 3 0.0-100.0 Bacterial urine culture - 01/06/20 09:50 Bacterial urine culture [id number] NRG COLONY COUNT 10,000 CFU/ML NRG SUSCEPTIBILITY SUSCEPTIBILITY REPORTED 01-08-20, 17 21 NRG Dirithromycin susceptibility test by dis k diffusion - 01/06/20 09:50 Gentamicin susceptibility test by minimum inhibitory c oncentration <= NRG Trimethoprim/sulfamethoxazole susceptibi lity test by minimum inhibitoryconcentration <= NRG Levofloxacin susceptibility test by minimum inhibitory concentration <= NRG Ampicillin susceptibility test by minimum inhibitory c oncentration > NRG Cefazolin susceptibility test by minimum inhibitory co ncentration > NRG Ceftriaxone susceptibility test by minimum inhibitory concentration <= NRG Ciprofloxacin susceptibility test by minimum inhibitor y concentration <= NRG Meropenem susceptibility test by minimum inhibitory co ncentration <= NRG Nitrofurantoin susceptibility test by mi nimum inhibitory concentration <= NRG Amoxicillin and clavulanate potassium susc NABIL > NRG Encounters ACCT No. Visit Date/Time Discharge Status Pt. Type Provider Facility Loc./Unit Complaint [id number] 07/09/2016 13:06:00 Document Registration [id number] 11/18/2016 08:41:00 Document Registration [id number] 01/23/2020 05:32:00 10:15:00 DIS Outpatient LEAH ARENAS, RIVER Mckeon [facility] PREOP LEFT MEDIAL MENISCUS T EAR [id number] 01/06/2020 09:40:00 23:59:59 CLS Outpatient EMMANUEL ARENAS, MOE [facility] LAB N18.3,I10,Z98.8 4,M19.90 [id number] 08/17/2019 12:34:00 23:59:59 CLS Outpatient ELIANA MORATAYA DO [facility] LAB OSTEOPENIA [id number] 08/04/2019 13:18:00 14:37:00 DIS Outpatient SRIKANTH ACOSTA [facility] REHAB PATELLAR TENDINITIS LT KNEE [id number] 07/14/2019 10:01:00 23:59:59 CLS Outpatient STEPHAN CORDERO [facility] RAD LEFT KNEE PAIN [id number] 06/17/2019 09:31:00 23:59:59 CLS Outpatient ELIANA MORATAYA DO [facility] LAB HYPERPARATHYROI DISM [id number] 05/13/2019 08:22:00 23:59:59 CLS Outpatient MOE BENITEZ MD [facility] LAB CKD [id number] 05/09/2019 10:39:00 23:59:59 CLS Outpatient NURIS VANG KIARA [facility] RAD SCREENING [id number] 04/05/2019 12:39:00 23:59:59 CLS Outpatient ELIANA MORATAYA DO [facility] RAD OSTEOPENIA [id number] 08/25/2018 08:17:00 23:59:59 CLS Outpatient STEPHAN CORDERO [facility] RAD TAIL BONE PAIN [id number] 09/21/2017 08:46:00 018 12:38:00 DIS Outpatient VANDANA ARENAS, RAMIN Morin [facility] ENDO STRONG FAMILY HX COLON CA/PERSONAL HX POLYPS [id number] 09/14/2017 06:08:00 018 13:26:00 DIS Outpatient RAMIN COLORADO MD [facility] PREOP COLONOSCOPY [id number] 07/20/2017 06:00:00 018 11:20:00 DIS Outpatient IRASEMA BRASWELL DPMIN Q [facility] SDC LEFT 3RD HAMMERTOE [id number] 07/07/2017 12:50:00 018 14:21:00 DIS Outpatient FRENCH ERIC ERIKA Q [facility] PREOP LEFT 3RD HAMMERTOE [id number] 08/27/2016 13:24:00 017 23:59:59 CLS Outpatient MOE BENITEZ MD [facility] LAB N18.3 [id number] 08/07/2016 08:01:00 017 23:59:59 CLS Outpatient ELIANA MORATAYA DO [facility] LAB 733.90 [id number] 06/03/2016 12:39:00 016 23:59:59 CLS Outpatient TONYA LIMA DO [facility] RAD RT THYROID MASS [id number] 05/14/2016 12:15:00 016 23:59:59 CLS Outpatient STEPHAN CORDERO [facility] RAD MASS OF THROAT [id number] 05/09/2016 10:49:00 016 23:59:59 CLS Outpatient STEPHAN CORDERO [facility] RAD MASS OF THROAT [id number] 11/22/2015 08:23:00 016 23:59:59 CLS Outpatient ELIANA MORATAYA DO [facility] RAD OSTEOPENIA [id number] 06/13/2015 09:36:00 015 23:59:59 CLS Outpatient MOE BENITEZ MD [facility] RAD CHRONIC KIDNEY DISEASE STAGE III,HTN [id number] 12/18/2014 06:17:00 015 13:20:00 DIS Outpatient ERIKA BRASWELL DPM Q [facility] SDC DEGENERATIVE RIGHT RIKKI CULAR MEDIAL CUNEIFORM JOIN [id number] 12/08/2014 11:37:00 015 23:59:59 CLS Outpatient FRENCH ERIC ERIKA Q [facility] PREOP DEGENERATIVE RT. NAVICU LAR MEDIAL CUNEIFORM JOINT [id number] 11/17/2013 10:03:00 014 23:59:59 CLS Outpatient CAITLIN QUESADA APRN [facility] RAD HEEL US T SCORE -2 [id number] 10/26/2013 15:17:00 014 23:59:59 CLS Outpatient CAITLIN QUESADA APRN [facility] RAD SCREENING [id number] 09/10/2013 10:50:00 014 12:25:00 DIS Emergency COLIN ARENAS, MAHESH R [facility] ER L SIDE ABD PAIN [id number] 03/28/2013 10:19:00 23:59:59 CLS Outpatient RAMIN COLORADO MD Via [facility] FAMILY HISTORY [id number] 03/23/2013 07:31:00 23:59:59 CLS Outpatient RAMIN COLORADO MD [facility] PREOP FAMILY HISTORY [id number] 11/30/2012 12:49:00 12:01:00 DIS Outpatient SRIKANTH ACOSTA [facility] REHAB L SHOULDER RCT WITH FRO ABIGAIL SHOULDER;DDD L SPINE [id number] 10/25/2012 13:48:00 23:59:59 CLS Outpatient SANDIP MASCORRO APRN [facility] RAD LOCALIZED SUPER FICIAL SWELLING,MASS,OR LUMP [id number] 01/25/2020 08:00:00 P EN Preadpriyanka LYNN MD, RIVER Mckeon Via [facility] LEFT MEDIAL MENISCUS TEAR [id number] 08/31/2014 12:07:00 Document Registration [id number] 08/22/2014 14:44:00 Document Registration [id number] 10/18/2012 12:32:00 Document Registration [id number] 08/10/2012 09:59:00 Document Registration [id number] 04/27/2016 07:05:00 Document Registration [id number] 03/20/2016 18:06:00 Document Registration [id number] 07/24/2016 08:44:00 Document Registration [id number] 07/24/2016 18:05:00 Document Registration [id number] 09/19/2016 09:12:00 Document Registration [id number] 12/26/2016 12:09:00 Document Registration [id number] 09/20/2016 10:07:00 Document Registration [id number] 12/08/2019 14:00:00 12/08/2019 23:59: 59 CLS Outpatient STEPHAN CORDERO APRN [facility] [id number] 12/08/2019 14:00:00 Document Registration [id number] 09/01/2019 13:20:00 Document Registration [id number] 03/08/2019 08:20:00 Document Registration [id number] 10/04/2018 16:40:00 Document Registration [id number] 04/12/2018 15:20:00 Document Registration [id number] 04/02/2018 16:00:00 Document Registration [id number] 09/28/2017 13:20:00 Document Registration [id number] 04/02/2017 11:40:00 Document Registration [id number] 10/13/2014 09:04:00 10/13/2014 23:59: 59 CLS Outpatient GIL EARLY CHILDHOODSTEPHAN [id number] 10/06/2014 09:47:00 10/06/2014 23:59: 59 CLS Outpatient GIL EARLY CHILDHOODSTEPHAN [id number] 09/15/2014 09:45:00 09/15/2014 23:59: 59 CLS Outpatient GIL MAHONEYNSTEPHAN [id number] 08/07/2014 11:18:00 08/07/2014 23:59: 59 CLS Outpatient GIL EARLY CHILDHOODSTEPHAN [id number] 07/28/2014 15:03:00 07/28/2014 23:59: 59 CLS Outpatient GIL EARLY CHILDHOODSTEPHAN [id number] 05/11/2014 13:53:00 05/11/2014 23:59: 59 CLS Outpatient KAIDEN VERAS PHD [id number] 04/19/2014 17:15:00 04/19/2014 23:59: 59 CLS Outpatient KAIDEN VERAS PHD [id number] 04/12/2014 08:51:00 04/12/2014 23:59: 59 CLS Outpatient KAIDEN VERAS PHD [id number] 04/04/2014 12:38:00 04/04/2014 23:59: 59 CLS Outpatient YULISSA ROSAS YUE Kristi [id number] 03/21/2014 10:17:00 03/21/2014 23:59: 59 CLS Outpatient GIL EARLY CHILDHOODSTEPHAN Karthikeyan [id number] 03/17/2014 11:51:00 03/17/2014 23:59: 59 CLS Outpatient STEPHAN CORDERO APRN Karthikeyan [id number] 01/18/2014 09:53:00 01/18/2014 23:59: 59 CLS Outpatient GIL EARLY CHILDHOODSTEPHAN Karthikeyan [id number] 12/06/2013 12:42:00 12/06/2013 23:59: 59 CLS Outpatient DUENAS DO YUE Berry [id number] 11/23/2013 09:47:00 11/23/2013 23:59: 59 CLS Outpatient STEPHAN CORDERO APRN [id number] 11/10/2013 15:05:00 11/10/2013 23:59: 59 CLS Outpatient YULISSA ROSAS YUE Berry [id number] 11/07/2013 16:06:00 11/07/2013 23:59: 59 CLS Outpatient CAITLIN QUESADA APRN [id number] 10/18/2013 13:13:00 10/18/2013 23:59: 59 CLS Outpatient CAITLIN QUESADA APRN [id number] 09/07/2013 08:06:00 09/07/2013 23:59: 59 CLS Outpatient STEPHAN CORDERO APRN [id number] 08/31/2013 16:13:00 08/31/2013 23:59: 59 CLS Outpatient YUE DUENAS DO Kristi [id number] 08/31/2013 16:13:00 08/31/2013 23:59: 59 CLS Outpatient STEPHAN CORDERO APRN [id number] 08/01/2013 08:52:00 08/01/2013 23:59: 59 CLS Outpatient DUENAS DOYUE Kristi [id number] 06/06/2013 16:01:00 06/06/2013 23:59: 59 CLS Outpatient STEPHAN CORDERO APRN [id number] 06/06/2013 16:01:00 06/06/2013 23:59: 59 CLS Outpatient STEPHAN CORDERO APRN [id number] 05/09/2013 12:07:00 05/09/2013 23:59: 59 CLS Outpatient RAMIN COLORADO MD [id number] 04/12/2013 15:14:00 04/12/2013 23:59: 59 CLS Outpatient STEPHAN CORDERO APRN [id number] 04/08/2013 08:57:00 04/08/2013 23:59: 59 CLS Outpatient DUENAS DO YUE Berry [id number] 03/21/2013 16:31:00 03/21/2013 23:59: 59 CLS Outpatient YULISSA DO YUE Berry [id number] 03/17/2013 12:33:00 03/17/2013 23:59: 59 CLS Outpatient DUENAS DO YUE Berry [id number] 10/05/2012 13:53:00 10/05/2012 23:59: 59 CLS Outpatient [id number] 09/02/2012 13:08:00 09/02/2012 23:59: 59 CLS Outpatient YUE DUENAS DO [id number] 08/30/2012 08:58:00 08/30/2012 23:59: 59 CLS Outpatient [id number] 08/04/2012 10:29:00 08/04/2012 23:59: 59 CLS Outpatient YUE DUENAS DO [id number] 08/03/2012 08:57:00 08/03/2012 23:59: 59 CLS Outpatient [id number] 07/13/2012 13:47:00 07/13/2012 23:59: 59 CLS Outpatient [id number] 04/16/2012 09:28:00 04/16/2012 23:59:5 9 CLS Outpatient YUE DUENAS DO [id number] 02/21/2013 09:48:00 Document Registration [id number] 01/13/2013 12:37:00 Document Registration [id number] 01/13/2013 12:37:00 Document Registration [id number] 12/22/2012 12:33:00 Document Registration [id number] 12/14/2012 12:16:00 Document Registration [id number] 11/29/2012 10:44:00 Document Registration [id number] 11/17/2012 14:16:00 Document Registration [id number] 10/19/2012 15:00:00 Document Registration [id number] 10/14/2012 11:59:00 Document Registration [id number] 04/03/2017 12:08:00 Document Registration [id number] 06/17/2016 18:05:00 Document Registration [id number] 12/16/2016 08:06:00 Document Registration [id number] 07/01/2016 06:54:00 07/02/2016 10:00: 00 DIS Outpatient Tonya Lima [facility] MED-SURG [id number] 06/25/2016 14:17:00 06/25/2016 23:59: 00 DIS Outpatient Mansoor Muhammad [id number] 06/27/2016 15:50:36 Document Registration
--- NOTE | 2020-01-25 09:28 | Progress Note-Pre Operative ---
Pre-Operative Progress Note H&P Reviewed The H&P was reviewed, patient examined and no changes noted. Date Seen by Provider: Jan 25, 2020 Time Seen by Provider: : Date H&P Reviewed: Jan 25, 2020 Time H&P Reviewed: : Pre-Operative Diagnosis: left knee medial meniscus tear and chondromalacia RIVER LYNN MD Jan 25, 2020 09:28
--- NOTE | 2020-01-25 09:30 | Progress Note-Post Operative ---
Post-Operative Progess Note Surgeon (s)/Drama Director (s) Surgeon RIVER LYNN MD Drama Director: Neil Maldonado Pre-Operative Diagnosis left knee medial meniscus tear and chondromalacia Post-Operative Diagnosis left knee medial meniscus tear and chondromalacia of the medial femoral condyle and patella Procedure & Operative Findings Date of Procedure 01/25/20 Procedure Performed/Findings left knee arthroscopic partial medial meniscectomy and chondroplasty of the medial femoral condyle and patella Anesthesia Type GETA Estimated Blood Loss Estimated blood loss (mL): minimal Specimens/Packing Specimens Removed none Packing: none RIVER LYNN MD Jan 25, 2020 09:30
--- NOTE | 2020-01-25 10:06 | Anesthesia-General Post-Op ---
General Patient Condition Mental Status/LOC: Same as Preop Cardiovascular: Satisfactory Nausea/Vomiting: Absent Respiratory: Satisfactory Pain: Controlled Complications: Absent Post Op Complications Complications None Follow Up Care/Instructions Patient Instructions None needed. Anesthesia/Patient Condition Patient Condition Patient is doing well, no complaints, stable vital signs, no apparent adverse anesthesia problems. No complications reported per nursing. ANDRE HARRINGTON CRNA Jan 25, 2020 10:06
[2020-01-25] MEDS ORDERED: morphine INJ 10 MG/ML 1ML (SYR OR VIAL) IVP ONE (10:15)
[2020-01-25] MEDS ORDERED: ONDANSETRON 4 MG/2 ML (SDV) Z0FRAN IVP PRN (10:15)
[2020-01-25] MEDS ORDERED: HYDR-3817 PO (11:49)
--- NOTE | 2020-01-25 14:33 | OPERATIVE REPORT ---
DATE OF SERVICE: 01/25/2020 PREOPERATIVE DIAGNOSES: 1. Left knee medial meniscus tear. 2. Left knee chondromalacia of the patella. POSTOPERATIVE DIAGNOSES: 1. Left knee medial meniscus tear. 2. Left knee chondromalacia of the patella. 3. Left knee chondromalacia of the medial femoral condyle. PROCEDURES: 1. Left knee arthroscopic partial medial meniscectomy. 2. Left knee arthroscopic chondroplasty of the patella. 3. Left knee arthroscopic chondroplasty of the medial femoral condyle. SURGEON: Dannie Lynn MD GUARD MANAGER: Neil Maldonado, who assisted throughout the procedure and closed the incisions. ANESTHESIA: General endotracheal by Eddie Dickey CRNA. TOURNIQUET TIME: Not applicable. DRAINS: None. COMPLICATIONS: None. POSTOPERATIVE PLAN: Routine arthroscopy protocol. The patient was transferred to the recovery room awake and in stable condition. STATEMENT OF MEDICAL NECESSITY: The patient is a 69-year-old female with complaints of left anterior and medial knee pain, catching, locking and swelling. She had significant arthritis noted radiographically. The patient was counseled that this procedure would help with her mechanical symptoms, but would not alleviate her arthritic symptoms. She understood that she was a candidate for total knee arthroplasty, but did not desire this. Due to functional impairment and failure to improve with conservative measures, the patient elected to proceed with surgical intervention. DESCRIPTION OF PROCEDURE: After risks and benefits of the procedure were discussed and questions were answered, informed consent was signed and placed on chart. The operative site was confirmed in the preoperative holding area initialed by the surgeon. The patient was then transferred to the operating room and after adequate levels of general endotracheal anesthetic were obtained, a timeout was called, confirming the operative site. Examination under anesthesia was performed, which revealed range of motion of 0/2/125 with negative Antonia, negative anterior and posterior drawer. No varus valgus laxity. Negative pivot shift. The left lower extremity was prepped and draped in the usual sterile fashion. The knee joint was injected with 60 mL of fluid and standard inferolateral portal was placed with the arthroscope under direct visualization, inferior medial portal was created. Diagnostic arthroscopy revealed grade IV chondral flaps throughout the patella and trochlea. The medial and lateral gutters were clear. The lateral compartment demonstrated grade II chondral softening throughout the femoral condyle and tibial plateau with no unstable chondral flaps. No meniscal pathology was noted. The ACL and PCL were intact. The medial compartment demonstrated grade II chondral flap centrally over the femoral condyle in 20 x 20 area with a horizontal of the posterior horn of the medial meniscus involving approximately one-third of the posterior horn. The unstable chondral flaps on the patella were debrided with shaver back to a stable edge. Scope was redirected into the medial compartment where the unstable chondral flaps in the medial femoral condyle were debrided with shaver back to a stable edge and the posterior horn of the medial meniscus was debrided with a biter and shaver back to a stable edge. Knee was copiously irrigated. Port sites were closed with 4-0 nylon in simple interrupted fashion. Knee was injected with Duramorph. The port sites were infiltrated with plain Marcaine. A soft dressing was applied. The patient was transferred to the recovery room awake and in stable condition. Job ID: [id number] DocumentID: [id number] Dictated Date: 01/25/2020 10:08:01 Paper Reclaiming Machine Operator Date: 01/25/2020 14:33:05 Dictated By: DANNIE LYNN MD
--- NOTE | 2020-01-25 14:47 | Physical Therapy Ortho Eval ---
PT Orthopedic Evaluation Type of Surgery Knee Scope (left) medial meniscus repair Prior Level of Function Current Living Status: Spouse Locomotion (Upon Admit): Independent Established Durable Medical Eq: Front Wheeled Walker Subjective Subjective Agrees to PT. Reports she has used a walker in the past. Entry Into Home: Stairs Without Railing Steps Into Home: 2 Motor Control Motor Control: Motor Control WNL ROM ROM: WFL Strength Strength: WFL Transfer Transfers (B, C, W/C) (FIM): 4 (post treatment, scored a 6) Gait Gait Assistive Device: FWW Right Lower Extremity: Right Weight Bearing Status RLE: Full Weight Bearing Left Lower Extremity: Left Weight Bearing Status LLE: Weight Bearing/Tolerated Gait (FIM): 4 (post treatment, pt scored 6) Distance (FIM): 3=150 ft Distance: 200 ft Summary/Comments Functional gait training with cues for sequencing and safety with use of walker to include turning. Education on progression to discontinue use of walker as able. Stair training as well with cues for sequencing and technique. Education on how to manipulate the stairs at her home. Pt demonstrated correct sequencing on stairs post treatment. Treatment Rendered Treatment: Therapeutic Exercises, Gait Train, Step Train Exercise Instruction: Quad Sets, Straight Leg Raise, Heel Slides Provided pt with pics of HEP and she demonstrated correct performance. Assessment/Goals Goal Time Frame: 1 Visit Understands HEP: Yes Safe Ambulation: Yes Plan Treatment Plan: Discharge PT/Family Agrees to Plan: Yes Time Time In: 1130 Time Out: 1155 Total Billed Treatment Time: 25 Billed Treatment Time visit EVM 15 GT 10 ANDREI CLARK PT Jan 25, 2020 14:47
== END 2020-01-25 12:30 | disposition home or self-care (01) ==
LOC: SDC 07:25
PROVIDERS: ATTEND Orthopaedic Surgery
DX: M23.222 Derangement of posterior horn of medial meniscus due to old tear or injury, left knee (principal); M22.42 Chondromalacia patellae, left knee; M17.12 Unilateral primary osteoarthritis, left knee; E66.9 Obesity, unspecified; E78.00 Pure hypercholesterolemia, unspecified; I12.9 Hypertensive chronic kidney disease with stage 1 through stage 4 chronic kidney disease, or unspecified chronic kidney disease; N18.9 Chronic kidney disease, unspecified; F41.9 Anxiety disorder, unspecified; F32.9 Major depressive disorder, single episode, unspecified; E03.9 Hypothyroidism, unspecified; Z98.84 Bariatric surgery status; Z79.890 Hormone replacement therapy; Z79.899 Other long term (current) drug therapy; Z68.41 Body mass index [BMI] 40.0-44.9, adult

== ENCOUNTER 2020-07-10 05:33 | Outpatient (RCR) | payer MEDICARE ==
[~2020-07-10] VITALS: Ht 168 cm; Wt 115.0 kg
[~2020-07-10 05:33] MED LIST changes: -CALC600T14 PO; +CLC600T PO; +HYDR-3817 PO
== END 2020-07-10 09:43 | disposition home or self-care (01) ==
LOC: PREOP 05:33
PROVIDERS: ATTEND Surgery
DX: Z01.818 Encounter for other preprocedural examination (principal); Z20.822 Contact with and (suspected) exposure to COVID-19; Z85.038 Personal history of other malignant neoplasm of large intestine; Z86.010 Personal history of colon polyps
CPT/HCPCS: 87635

== ENCOUNTER 2020-07-12 11:50 | Day surgery (SDC) | payer MEDICARE ==
[~2020-07-12] VITALS: Ht 168 cm; Wt 115.0 kg
[~2020-07-12 11:50] MED LIST changes: +LACTATED RINGERS 1,000 ML IV PRN
[2020-07-12] MEDS ORDERED: LACTATED RINGERS 1,000 ML IV ONE (11:51)
[2020-07-12] MEDS ORDERED: LACTATED RINGERS 1,000 ML IV STA (11:57)
[2020-07-12 12:22] VITALS: BP 141/62
[2020-07-12] MEDS ORDERED: PROPOFOL INJECTION 50 ML IV ONE (12:35)
[2020-07-12] MEDS ORDERED: MIDAZOLAM 2 MG/2 ML (VERSED) VIAL ONE (12:35)
--- NOTE | 2020-07-12 13:48 | Progress Note-Pre Operative ---
Pre-Operative Progress Note H&P Reviewed The H&P was reviewed, patient examined and no changes noted. Date Seen by Provider: Jul 12, 2020 Time Seen by Provider: 13:48 Date H&P Reviewed: Jul 12, 2020 Time H&P Reviewed: 13:48 Pre-Operative Diagnosis: family hx colon cancer, hx polyps TONYA LIMA DO Jul 12, 2020 13:48
[2020-07-12 14:10] VITALS: BP 123/56
[2020-07-12 14:15] VITALS: BP 124/58
[2020-07-12 14:20] VITALS: BP 124/58
--- NOTE | 2020-07-12 14:28 | Anesthesia-General Post-Op ---
MAC Patient Condition Mental Status/LOC: Same as Preop Cardiovascular: Satisfactory Nausea/Vomiting: Absent Respiratory: Satisfactory Pain: Controlled Complications: Absent Post Op Complications Complications None Follow Up Care/Instructions Patient Instructions None needed. Anesthesiology Discharge Order Discharge Order Patient is doing well, no complaints, stable vital signs, no apparent adverse anesthesia problems. No complications reported per nursing. CLINT CHRISTENSEN CRNA Jul 12, 2020 14:28
[2020-07-12 14:56] VITALS: BP 124/58
--- NOTE | 2020-07-12 16:53 | OPERATIVE REPORT ---
DATE OF SERVICE: 07/12/2020 PREOPERATIVE DIAGNOSES: Family history of colon cancer and personal history of colon polyps. POSTOPERATIVE DIAGNOSES: Diverticulosis and sigmoid colon polyp. SURGEON: Tonya Lozano DO. ANESTHESIA: Per SEA KAYAKING GUIDE. PROCEDURES PERFORMED: Colonoscopy with snare polypectomy. ESTIMATED BLOOD LOSS: None. COMPLICATIONS: None. INDICATIONS FOR PROCEDURE: The patient is a 69-year-old female with a family history of colon cancer and personal history of polyps. She understands the risks and benefits of the procedure and wished to proceed with procedure. Consent was signed in the chart. DESCRIPTION OF PROCEDURE: The patient was taken to the endoscopy suite and placed in a left lateral recumbent position. Timeout was performed. Digital rectal exam was performed. There were no palpable polyps, masses or ulcerations. Scope was inserted in the rectum and advanced all the way to the cecum with minimal difficulty. Prep was adequate. Scope was then slowly retracted back. No polyps, masses or ulcerations within the cecum, ascending, transverse and descending colon. In the sigmoid colon, a small polyp was present, which snare polypectomy was performed. Scope was then continued slowly retracted back; through the sigmoid colon, diverticulosis was present. In the rectum, there were no polyps, masses or ulcerations. Scope was retroflexed noting no other pathology. Scope was returned to its normal position, slowly withdrawn until completely removed. The patient tolerated the procedure well without any complications. She was taken to the recovery room in a stable condition. RECOMMENDATIONS: The patient will need repeat colonoscopy in five years. She will follow up in the office in two weeks to discuss pathology results. Any issues before that be seen at that time. Job ID: [id number] DocumentID: [id number] Dictated Date: 07/12/2020 15:22:27 Pier Hand Helper Date: 07/12/2020 16:53:20 Dictated By: TONYA LOZANO DO
== END 2020-07-12 15:10 | disposition home or self-care (01) ==
LOC: ENDO 11:50
PROVIDERS: ATTEND Surgery
DX: D12.5 Benign neoplasm of sigmoid colon (principal); K57.30 Diverticulosis of large intestine without perforation or abscess without bleeding; I10 Essential (primary) hypertension; K21.9 Gastro-esophageal reflux disease without esophagitis; E66.01 Morbid (severe) obesity due to excess calories; Z68.41 Body mass index [BMI] 40.0-44.9, adult; Z91.048 Other nonmedicinal substance allergy status; Z79.899 Other long term (current) drug therapy; Z88.5 Allergy status to narcotic agent; Z88.8 Allergy status to other drugs, medicaments and biological substances; Z86.010 Personal history of colon polyps; Z80.0 Family history of malignant neoplasm of digestive organs; Z83.3 Family history of diabetes mellitus
CPT/HCPCS: 88305

== ENCOUNTER → 2020-10-30 | Outpatient (CLI) | payer MEDICARE ==
[~2020-10-30] MED LIST changes: +CALC600T91 PO; -CLC600T PO; -LACTATED RINGERS 1,000 ML IV PRN; -LISI-556 PO; +LISI-729 PO; +LISI10TA25 PO
== END ==
LOC: CARD 11:13
PROVIDERS: ATTEND Nurse Practitioner Family
DX: I51.7 Cardiomegaly (principal); I35.0 Nonrheumatic aortic (valve) stenosis; R60.9 Edema, unspecified
CPT/HCPCS: 93306

== ENCOUNTER → 2020-11-20 | Outpatient (CLI) | payer MEDICARE ==
[2020-11-20 12:30] LABS: HEMATOCRIT 44 % (35-52); HEMOGLOBIN 14.3 g/dL (11.5-16.0); MEAN CORPUSCULAR HEMOGLOBIN 29 pg (25-34); MEAN CORPUSCULAR HGB CONC 32 g/dL (32-36); MEAN CORPUSCULAR VOLUME 91 fL (80-99); MEAN PLATELET VOLUME 10.2 fL (9.0-12.2); PLATELET COUNT 297 10^3/uL (130-400); WHITE BLOOD COUNT 10.6 10^3/uL (4.3-11.0)
[2020-11-20 12:52] LABS: ALBUMIN 4.4 GM/DL (3.2-4.5); CALCIUM 9.2 MG/DL (8.5-10.1); CREATININE SERUM 1.26 MG/DL (0.60-1.30); PHOSPHORUS 3.1 MG/DL (2.3-4.7); POTASSIUM 3.7 MMOL/L (3.6-5.0); URIC ACID 7.1 MG/DL (2.6-7.2)
[2020-11-20 12:56] LABS: URINE CREATININE FOR RATIO 60 MG/DL (30-125); URINE PROTEIN FOR RATIO ONLY < 6 MG/DL (6-12)
== END ==
LOC: LAB 11:52
PROVIDERS: ATTEND Internal Medicine Nephrology
DX: N18.30 Chronic kidney disease, stage 3 unspecified (principal); E87.2 Acidosis; E87.5 Hyperkalemia
CPT/HCPCS: 36415; 80069; 82306; 82570; 83970; 84156; 84550; 85027

== ENCOUNTER 2021-05-31 08:16 | Emergency (ER) | payer MEDICARE ==
[~2021-05-31] VITALS: Ht 167 cm; Wt 117.0 kg
[~2021-05-31 08:16] MED LIST changes: -LISI-729 PO; +LISI5TAB20 PO; -OMEP40CA27 PO; +OMEP40CA6 PO
--- NOTE | 2021-05-31 09:52 | ED Abdominal Pain ---
General Chief Complaint: Abdominal/GI Problems Stated Complaint: LLQ PAIN Nursing Triage Note: ARRIVED VIA AMB TO ROOM 08 WITH COMPLAINTS OF LEFT LOWER ABD PAIN STARTING YESTERDAY. PT STATES IT IS CONSTANT. Source of Information: Patient Exam Limitations: No Limitations History of Present Illness Date Seen by Provider: May 31, 2021 Time Seen by Provider: 09:50 Initial Comments With 3 days of worsening left lower quadrant abdominal pain no bowel changes no dysuria no nausea no vomiting no fevers. She went to [place] last night and bouncing in the car made the pain quite a bit worse. Timing/Duration: 1-2 Days, Resolved Prior to Arrival Severity/Quality: Moderate Radiation: No Radiation Activities at Onset: None Associated Symptoms: No Fever/Chills, No Nausea/Vomiting Allergies and Home Medications Allergies Coded Allergies: adhesive tape (Verified Allergy, Mild, Rash, 01/25/20) clonidine (Verified Allergy, Mild, 01/25/20) ibuprofen (Verified Allergy, Unknown, 01/25/20) end stage renal disease duloxetine (Unverified Adverse Reaction, Intermediate, NAUSEA, 01/23/20) REPORTS SIGNIFICANT N/V Patient Home Medication List Home Medication List Reviewed: Yes Calcium Carbonate (Calcium) 600 Mg Tablet, 1,200 MG PO DAILY, (Reported) Entered as Reported by: VERENICE PARADA on 07/07/17 1313 Cetirizine HCl (Cetirizine HCl) 10 Mg Tablet, 10 MG PO HS, (Reported) Entered as Reported by: VERENICE PARADA on 07/07/17 1313 Cholecalciferol (Vitamin D3) (Vitamin D3) 125 Mcg Capsule, 125 MCG PO WEEK, (Reported) Entered as Reported by: VERENICE PARADA on 01/23/20 0858 Hydrocodone/Acetaminophen (Hydrocodone-Acetamin 7.5-325) 1 Each Tablet, 1 EACH PO Q4H Prescribed by: JONATHAN GHOSH on 01/25/20 1149 Levothyroxine Sodium (Levothyroxine Sodium) 50 Mcg Tablet, 50 MCG PO DAILY, (Reported) Entered as Reported by: VERENICE PARADA on 07/07/17 1313 Lisinopril (Lisinopril) 5 Mg Tablet, 5 MG PO DAILY, (Reported) Entered as Reported by: VERENICE PARADA on 09/14/17 1323 Meclizine HCl (Meclizine HCl) 25 Mg Tablet, 25 MG PO TID, (Reported) Entered as Reported by: VERENICE PARADA on 01/23/20 0858 Omeprazole (Omeprazole) 40 Mg Capsule.dr, 40 MG PO DAILY, (Reported) Entered as Reported by: VERENICE PARADA on 07/07/17 1313 Zolpidem Tartrate (Ambien) 10 Mg Tablet, 10 MG PO HS, (Reported) Entered as Reported by: VERENICE PARADA on 01/23/20 0858 Review of Systems Review of Systems Constitutional: see HPI EENTM: No Symptoms Reported Respiratory: No Symptoms Reported Cardiovascular: No Symptoms Reported Gastrointestinal: See HPI, Abdominal Pain; Denies Diarrhea, Denies Nausea Genitourinary: No Symptoms Reported Musculoskeletal: no symptoms reported Skin: no symptoms reported Psychiatric/Neurological: No Symptoms Reported Endocrine: No Symptoms Reported Hematologic/Lymphatic: No Symptoms Reported Past Wdkaraa-Gawmpi-Hvryja Hx Patient Social History Tobacco Use?: No Substance use?: No Alcohol Use?: No Immunizations Up To Date Tetanus Booster (TDap): Unknown PED Vaccines UTD: No Third COVID19 Vaccination Date: 04/18 Seasonal Allergies Seasonal Allergies: Yes Past Medical History Surgeries: Yes (FEET, L KNEE SCOPE, GASTRIC BYPASS, ) Gallbladder, Thyroidectomy Respiratory: No Currently Using CPAP: No Currently Using BIPAP: No Cardiac: Yes Hypertension Neurological: Yes (DIZZINESS WHEN LYING DOWN FOR FEW SECONDS) Vertigo Reproductive Disorders: No Female Reproductive Disorders: Denies Sexually Transmitted Disease: No HIV/AIDS: No Genitourinary: Yes (STAGE 3) Renal Failure Gastrointestinal: Yes Gastroesophageal Reflux, Chronic Constipation, Polyps Musculoskeletal: Yes Arthritis, Fibromyalgia, Chronic Back Pain Endocrine: No Hypothyroidsim HEENT: Yes (GLASSES, DENTURES) Loss of Vision: Bilateral Hearing Impairment: Denies Cancer: No Psychosocial: No Integumentary: No Blood Disorders: No Adverse Reaction/Blood Tranf: No (N/A) Family Medical History Colon cancer Physical Exam Vital Signs Vital Signs - First Documented 05/31/21 08:44 Temp 36.0 Pulse 92 Resp 16 B/P (MAP) 130/64 (86) Pulse Ox 96 O2 Delivery Room Air Capillary Refill : Less Than 3 Seconds Height/Weight/BMI Height: 5'6.00" Weight: 263lbs. 3.0oz. 119.475552pf; 41.00 BMI Method:Stated General Appearance: WD/WN, no apparent distress HEENT: PERRL/EOMI, normal ENT inspection Neck: non-tender, full range of motion Respiratory: lungs clear, normal breath sounds, no respiratory distress, no accessory muscle use Cardiovascular: regular rate, rhythm, no murmur Gastrointestinal: normal bowel sounds, soft, tenderness Extremities: normal range of motion, non-tender Neurologic/Psychiatric: alert, normal mood/affect, oriented x 3 Skin: normal color, warm/dry Progress/Results/Core Measures Results/Orders Lab Results Laboratory Tests Test 05/31/21 08:45 05/31/21 09:44 Range/Units Urine Color YELLOW Urine Clarity CLEAR Urine pH 6.0 5-9 Urine Specific [place] 1.025 H 1.016-1.022 Urine Protein NEGATIVE NEGATIVE Urine Glucose (UA) NEGATIVE NEGATIVE Urine Ketones NEGATIVE NEGATIVE Urine Nitrite NEGATIVE NEGATIVE Urine Bilirubin NEGATIVE NEGATIVE Urine Urobilinogen 2.0 < = 1.0 MG/DL Urine Leukocyte Esterase 1+ H NEGATIVE Urine RBC (Auto) NEGATIVE NEGATIVE Urine RBC 0-2 /HPF Urine WBC 2-5 /HPF Urine Squamous Epithelial Cells 2-5 /HPF Urine Renal Epithelial Cells 0-2 /HPF Urine Crystals NONE /LPF Urine Bacteria FEW H /HPF Urine Casts PRESENT /LPF Urine Hyaline Casts 5-10 H /LPF Urine Mucus NEGATIVE /LPF Urine Culture Indicated YES White Blood Count 7.4 4.3-11.0 10^3/uL Red Blood Count 4.07 3.80-5.11 10^6/uL Hemoglobin 12.3 11.5-16.0 g/dL Hematocrit 37 35-52 % Mean Corpuscular Volume 91 80-99 fL Mean Corpuscular Hemoglobin 30 25-34 pg Mean Corpuscular Hemoglobin Concent 33 32-36 g/dL Red Cell Distribution Width 11.8 10.0-14.5 % Platelet Count 249 130-400 10^3/uL Mean Platelet Volume 10.3 9.0-12.2 fL Immature Granulocyte % (Auto) 1 % Neutrophils (%) (Auto) 72 42-75 % Lymphocytes (%) (Auto) 21 12-44 % Monocytes (%) (Auto) 6 0-12 % Eosinophils (%) (Auto) 1 0-10 % Basophils (%) (Auto) 0 0-10 % Neutrophils # (Auto) 5.3 1.8-7.8 10^3/uL Lymphocytes # (Auto) 1.5 1.0-4.0 10^3/uL Monocytes # (Auto) 0.4 0.0-1.0 10^3/uL Eosinophils # (Auto) 0.1 0.0-0.3 10^3/uL Basophils # (Auto) 0.0 0.0-0.1 10^3/uL Immature Granulocyte # (Auto) 0.1 0.0-0.1 10^3/uL Sodium Level 137 135-145 MMOL/L Potassium Level 3.7 3.6-5.0 MMOL/L Chloride Level 104 98-107 MMOL/L Carbon Dioxide Level 26 21-32 MMOL/L Anion Gap 7 5-14 MMOL/L Blood Urea Nitrogen 20 H 7-18 MG/DL Creatinine 1.30 0.60-1.30 MG/DL Estimat Glomerular Filtration Rate 40 BUN/Creatinine Ratio 15 Glucose Level 89 70-105 MG/DL Calcium Level 8.7 8.5-10.1 MG/DL Corrected Calcium 8.9 8.5-10.1 MG/DL Total Bilirubin 0.6 0.1-1.0 MG/DL Aspartate Amino Transf (AST/SGOT) 13 5-34 U/L Alanine Aminotransferase (ALT/SGPT) 14 0-55 U/L Alkaline Phosphatase 89 40-136 U/L Total Protein 6.7 6.4-8.2 GM/DL Albumin 3.7 3.2-4.5 GM/DL My Orders Orders - ASHWIN BANKS OFFSET PRESS OPERATOR APPRENTICE Cbc With Automated Diff (05/31/21 09:49) Comprehensive Metabolic Panel (05/31/21 09:49) Ua Culture If Indicated (05/31/21 09:49) Ed Iv/Invasive Line Start (05/31/21 09:49) Ct Abd/Pelvis Wo(Kidney Stone) (05/31/21 09:49) Urine Culture (05/31/21 08:45) Vital Signs/I&O 05/31/21 08:44 Temp 36.0 Pulse 92 Resp 16 B/P (MAP) 130/64 (86) Pulse Ox 96 O2 Delivery Room Air Blood Pressure Mean: 86 Departure Communication (Admissions) NAME: HOWARD LUCERO [facility] REC#: [id number] PT STATUS: REG ER : 1950 PHYSICIAN: ASHWIN BANKS APRN ADMIT DATE: 05/31/21/ER Draft Date of Exam:05/31/21 CT ABD/PELVIS WO(KIDNEY STONE) PROCEDURE: CT urinary tract, rule out kidney stone. TECHNIQUE: Multiple contiguous axial images were obtained through the abdomen and pelvis without the use of intravenous contrast. Auto Exposure Controls were utilized during the CT exam to meet ALARA standards for radiation dose reduction. INDICATION: Lower abdominal pain. COMPARISON: No prior studies are available for comparison. FINDINGS: The lung bases are clear. Liver is unremarkable. Gallbladder appears to be surgically absent. There is no biliary ductal dilatation. There are postop changes from gastric bypass surgery. Pancreas and spleen are unremarkable. No adrenal mass is detected. Kidneys are unremarkable. There is no hydronephrosis. No renal or ureteral calculi are detected. Aorta is nonaneurysmal. The small and large bowel loops are normal in caliber. There is no obstruction. There is no free fluid or fluid collection. The uterus and bladder are unremarkable. No inflammatory changes are seen. IMPRESSION: Unremarkable noncontrast CT of the abdomen and pelvis. No urinary tract calculi or obstruction is detected. No acute feature is identified. Dictated on workstation # [id number] Dict: 05/31/21 1029 Trans: 05/31/21 1039 [id number] [id number] Interpreted by: MARY HERMOSILLO MD Electronically signed by: Impression Primary Impression: Epiploic appendagitis Disposition: 01 HOME, SELF-CARE Condition: Stable Departure-Patient Inst. Decision time for Depature: 10:50 Referrals: [facility] (PCP/Family) Primary Care Physician Patient Instructions: NO INSTRUCTIONS GIVEN Add. Discharge Instructions: 1. Tylenol and ibuprofen for pain control. Return to ER for any concerns. Follow-up with your doctor. All discharge instructions reviewed with patient and/or family. Voiced understanding. Scripts Hydrocodone/Acetaminophen (Hydrocodone-Acetamin 5-325 mg) 1 Each Tablet 1 TAB PO Q4H PRN for PAIN-MODERATE (5-7), #10 TAB Prov: ASHWIN BANKS APRN 05/31/21 ASHWIN BANKS APRN May 31, 2021 09:52
[2021-05-31 09:55] LABS: BILIRUBIN,URINE NEGATIVE (NEGATIVE); CLARITY,URINE CLEAR; COLOR,URINE YELLOW; GLUCOSE, URINE (UA) NEGATIVE (NEGATIVE); KETONES,URINE NEGATIVE (NEGATIVE); LEUKOCYTE ESTERASE ,URINE 1+ (NEGATIVE); NITRITE,URINE NEGATIVE (NEGATIVE); PROTEIN,URINE NEGATIVE (NEGATIVE)
[2021-05-31 09:56] LABS: BASOPHILS % (AUTO) 0 % (0-10); EOSINOPHILS # (AUTO) 0.1 10^3/uL (0.0-0.3); EOSINOPHILS % (AUTO) 1 % (0-10); HEMATOCRIT 37 % (35-52); HEMOGLOBIN 12.3 g/dL (11.5-16.0); LYMPHOCYTES # (AUTO) 1.5 10^3/uL (1.0-4.0); LYMPHOCYTES % (AUTO) 21 % (12-44); MEAN CORPUSCULAR HEMOGLOBIN 30 pg (25-34); MEAN CORPUSCULAR HGB CONC 33 g/dL (32-36); MEAN CORPUSCULAR VOLUME 91 fL (80-99); MEAN PLATELET VOLUME 10.3 fL (9.0-12.2); MONOCYTES # (AUTO) 0.4 10^3/uL (0.0-1.0); MONOCYTES % (AUTO) 6 % (0-12); NEUTROPHILS # (AUTO) 5.3 10^3/uL (1.8-7.8); NEUTROPHILS % (AUTO) 72 % (42-75); PLATELET COUNT 249 10^3/uL (130-400); WHITE BLOOD COUNT 7.4 10^3/uL (4.3-11.0)
[2021-05-31 10:04] LABS: ALBUMIN 3.7 GM/DL (3.2-4.5); POTASSIUM 3.7 MMOL/L (3.6-5.0)
[2021-05-31 10:05] LABS: CALCIUM 8.7 MG/DL (8.5-10.1)
[2021-05-31 10:07] LABS: TOTAL PROTEIN 6.7 GM/DL (6.4-8.2)
[2021-05-31 10:08] LABS: BILIRUBIN,TOTAL 0.6 MG/DL (0.1-1.0)
[2021-05-31 10:10] LABS: CREATININE SERUM 1.3 MG/DL (0.60-1.30)
[2021-05-31 10:18] LABS: BACTERIA,URINE FEW /HPF; RBC,URINE 0-2 /HPF
[2021-05-31 10:19] LABS: RENAL EPITHELIAL CELLS,URINE 0-2 /HPF
--- NOTE | 2021-05-31 10:41 | Diagnostic Imaging Report ---
PROCEDURE: CT urinary tract, rule out kidney stone. TECHNIQUE: Multiple contiguous axial images were obtained through the abdomen and pelvis without the use of intravenous contrast. Auto Exposure Controls were utilized during the CT exam to meet ALARA standards for radiation dose reduction. INDICATION: Lower abdominal pain. COMPARISON: No prior studies are available for comparison. FINDINGS: The lung bases are clear. Liver is unremarkable. Gallbladder appears to be surgically absent. There is no biliary ductal dilatation. There are postop changes from gastric bypass surgery. Pancreas and spleen are unremarkable. No adrenal mass is detected. Kidneys are unremarkable. There is no hydronephrosis. No renal or ureteral calculi are detected. Aorta is nonaneurysmal. The small and large bowel loops are normal in caliber. There is no obstruction. There is no free fluid or fluid collection. There is a focal area of somewhat tubular fat density with adjacent inflammation noted just along the medial aspect of the mid descending colon. Features are suggestive of epiploic appendagitis. The uterus and bladder are unremarkable. No inflammatory changes are seen. IMPRESSION: 1. No evidence of urinary tract calculi or obstruction. 2. There is some inflammation in the left abdomen adjacent to the mid descending colon with tubular fat density suggestive of epiploic appendagitis. No other abnormalities are detected. Dictated by: Dictated on workstation # [id number]
[2021-05-31] MEDS ORDERED: ACHD5005 PO (10:53)
[2021-05-31 10:58] VITALS: BP 122/64
== END 2021-05-31 10:55 | disposition home or self-care (01) ==
LOC: EDUNIT# 08:16 → ER 08:18
DX: K63.89 Other specified diseases of intestine (principal); I10 Essential (primary) hypertension; K21.9 Gastro-esophageal reflux disease without esophagitis; E03.9 Hypothyroidism, unspecified; G89.29 Other chronic pain; M54.9 Dorsalgia, unspecified; Z79.899 Other long term (current) drug therapy; Z79.890 Hormone replacement therapy; Z79.891 Long term (current) use of opiate analgesic
CPT/HCPCS: 36415; 74176; 80053; 81000; 85025; 87088; 93005

== ENCOUNTER 2021-06-15 13:16 | Emergency (ER) | payer MEDICARE ==
[~2021-06-15] VITALS: Ht 167.7 cm; Wt 117.9 kg
--- NOTE | 2021-06-15 14:10 | ED Fall/Injury ---
General Chief Complaint: Trauma-Non Activation Stated Complaint: FALL/ RIBS/FACE/RIGHT WRIST PAIN Nursing Triage Note: PT AMB TO RM 5 WITH COMPLAINT OF FALL. STATES TRIPPED IN HER YARD, LANDING ON RIGHT SIDE. PT IS COMPLAINING OF RIGHT WRIST AND RIB PAIN. HAS BRUISING TO RIGHT CHEEK. ABRAISION ON RIGHT FORE ARM. DENIES LOC. DENIES BLOOD THINNERS. UNKOWN LAST TETANUS. Source: patient Exam Limitations: no limitations History of Present Illness Date Seen by Provider: Jun 15, 2021 Time Seen by Provider: 13:59 Initial Comments Here with report of fall after tripping in her yard. She tripped over a brick that was sticking out through the dirt. She landed on the right side of her face, right arm and right chest. Denies loss of consciousness. Did break her glasses. Does have bruising to the right side of her face, cheek and chin as well as skin tear to the right elbow and moderate pain to the right wrist. She also complains of right lateral chest wall pain and left chest wall pain. Tetanus is not up-to-date. No difficulty with walking and denies bilateral hip or leg pain. Occurred: this afternoon (1 to 2 hours ago) Severity: mild Injuries/Pain Location: face, upper extremity, chest Context: tripped Loss of Consciousness: no loss of consciousness Modifying Factors: Worse With Movement Associated Symptoms (Fall): No Confusion, No Headache, No Nausea/Vomiting, No Neck Pain, No Shortness of Air, No Trouble Walking Allergies and Home Medications Allergies Coded Allergies: adhesive tape (Verified Allergy, Mild, Rash, 01/25/20) clonidine (Verified Allergy, Mild, 01/25/20) ibuprofen (Verified Allergy, Unknown, 01/25/20) end stage renal disease duloxetine (Unverified Adverse Reaction, Intermediate, NAUSEA, 01/23/20) REPORTS SIGNIFICANT N/V Patient Home Medication List Home Medication List Reviewed: Yes Calcium Carbonate (Calcium) 600 Mg Tablet, 1,200 MG PO DAILY, (Reported) Entered as Reported by: VERENICE PARADA on 07/07/17 1313 Cetirizine HCl (Cetirizine HCl) 10 Mg Tablet, 10 MG PO HS, (Reported) Entered as Reported by: VERENICE PARADA on 07/07/17 1313 Cholecalciferol (Vitamin D3) (Vitamin D3) 125 Mcg Capsule, 125 MCG PO WEEK, (Reported) Entered as Reported by: VERENICE PARADA on 01/23/20 0858 Hydrocodone/Acetaminophen (Hydrocodone-Acetamin 7.5-325) 1 Each Tablet, 1 EACH PO Q4H Prescribed by: JONATHAN GHOSH on 01/25/20 1149 Hydrocodone/Acetaminophen (Hydrocodone-Acetamin 5-325 mg) 1 Each Tablet, 1 TAB PO Q4H PRN for PAIN-MODERATE (5-7) Prescribed by: ASHWIN BANKS on 05/31/21 1053 Levothyroxine Sodium (Levothyroxine Sodium) 50 Mcg Tablet, 50 MCG PO DAILY, (Reported) Entered as Reported by: VERENICE PARADA on 07/07/17 1313 Lisinopril (Lisinopril) 5 Mg Tablet, 5 MG PO DAILY, (Reported) Entered as Reported by: VERENICE PARADA on 09/14/17 1323 Meclizine HCl (Meclizine HCl) 25 Mg Tablet, 25 MG PO TID, (Reported) Entered as Reported by: VERENICE PARADA on 01/23/20 0858 Omeprazole (Omeprazole) 40 Mg Capsule.dr, 40 MG PO DAILY, (Reported) Entered as Reported by: VERENICE PARADA on 07/07/17 1313 Zolpidem Tartrate (Ambien) 10 Mg Tablet, 10 MG PO HS, (Reported) Entered as Reported by: VERENICE PARADA on 01/23/20 0858 Review of Systems Review of Systems Constitutional: see HPI; No chills, No fever Eyes: Denies Blurred Vision, Denies Pain Ears, Nose, Mouth, Throat: no symptoms reported Respiratory: No cough, No short of breath Cardiovascular: chest pain (Bilateral rib pain with right greater than left) Gastrointestinal: No abdominal pain, No nausea, No vomiting Genitourinary: no symptoms reported Musculoskeletal: joint pain, muscle pain Skin: change in color (Bruising right wrist, right cheek and right chin), lesions (Skin tear right wrist) Psychiatric/Neurological: No Symptoms Reported Past Esdexqa-Asquoi-Stgfig Hx Patient Social History Tobacco Use?: No Substance use?: No Alcohol Use?: No Pt feels they are or have been: No Immunizations Up To Date Tetanus Booster (TDap): Unknown PED Vaccines UTD: No Influenza Vaccine Up-to-Date: Yes; Up-to-Date First/Initial COVID19 Vaccinat: 09/16 Second COVID19 Vaccination Slick: 10/17 Third COVID19 Vaccination Date: 04/18 COVID19 Vaccine Dietitian Consultant: MODERNLashanda Seasonal Allergies Seasonal Allergies: Yes Past Medical History Surgeries: Yes (FEET, L KNEE SCOPE, GASTRIC BYPASS, ) Gallbladder, Thyroidectomy Respiratory: No Currently Using CPAP: No Currently Using BIPAP: No Cardiac: Yes Hypertension Neurological: Yes (DIZZINESS WHEN LYING DOWN FOR FEW SECONDS) Vertigo Reproductive Disorders: No Female Reproductive Disorders: Denies Sexually Transmitted Disease: No HIV/AIDS: No Genitourinary: Yes (STAGE 3) Renal Failure Gastrointestinal: Yes Gastroesophageal Reflux, Chronic Constipation, Polyps Musculoskeletal: Yes Arthritis, Fibromyalgia, Chronic Back Pain Endocrine: No Hypothyroidsim HEENT: Yes (GLASSES, DENTURES) Loss of Vision: Bilateral Hearing Impairment: Denies Cancer: No Psychosocial: No Integumentary: No Blood Disorders: No Adverse Reaction/Blood Tranf: No (N/A) Family Medical History Reviewed Nursing Family Hx Colon cancer Physical Exam Vital Signs Vital Signs - First Documented 06/15/21 13:47 Pulse 94 Resp 20 B/P (MAP) 143/73 (96) Pulse Ox 98 O2 Delivery Room Air Capillary Refill : Less Than 3 Seconds Height, Weight, BMI Height: 5'6.00" Weight: 263lbs. 3.0oz. 119.223970wl; 41.00 BMI Method:Stated General Appearance: WD/WN, no apparent distress HEENT: PERRL/EOMI, TMs normal, pharynx normal Neck: non-tender, full range of motion, supple, normal inspection Cardiovascular: regular rate, rhythm, no murmur Respiratory: lungs clear, normal breath sounds Gastrointestinal: non tender, soft Back: normal inspection, no CVA tenderness, no vertebral tenderness Extremities: pelvis stable, swelling, other (Tenderness right wrist lateral aspect with decreased range of motion of the right wrist due to pain.) Neurologic/Psychiatric: alert, oriented x 3 Skin: warm/dry, ecchymosis (Right cheek, right chin and right wrist), other (Skin tear right lateral elbow) Tashia Coma Score Best Eye Response: (4) Open Spontaneously Best Verbal Response: (5) Oriented Best Motor Response: (6) Obeys Commands Progress/Results/Core Measures Results/Orders My Orders Orders - ALBINA PRATER MD Ct Chest Wo (06/15/21 14:07) Ct Head Wo (06/15/21 14:07) Wrist, Right, 3 Views Or More (06/15/21 14:07) Hydrocodone/Apap 10/325 Tablet (Lortab 1 (06/15/21 14:07) Dipht,Pertuss(Acell),Tet Adult (Boostrix (06/15/21 14:15) Vital Signs/I&O 06/15/21 13:47 Pulse 94 Resp 20 B/P (MAP) 143/73 (96) Pulse Ox 98 O2 Delivery Room Air Blood Pressure Mean: 96 Progress Progress Note : Progress Note Seen and evaluated. CT head, chest and x-ray right wrist ordered. Hydrocodone 10/325 1 tab p.o. and tetanus IM ordered. Skin tear to be cleaned and dressed by nursing. Monitor patient. 1533: CTs and x-ray reviewed and noted below. There is a question of anterior maxillary buckle fracture on the right. Given this finding I will go ahead and place her on antibiotics and she can follow-up with Dr. Lynn. She also has multiple rib fractures on the right. This was discussed with Dr. Lima and she may follow-up with him. Otherwise stable for discharge home. Discharged home with return precautions. Patient verbalized understanding instructions and agreement with plan. RT did do teaching for incentive spirometer. Diagnostic Imaging Diagonstic Imaging: Xray Comments [facility] [place] NAME: HOWARD LUCERO [facility] REC#: [id number] PT STATUS: REG ER : 1950 PHYSICIAN: ALBINA PRATER MD ADMIT DATE: 06/15/21/ER Signed Date of Exam:06/15/21 WRIST, RIGHT, 3 VIEWS OR MORE INDICATION: Fall with right wrist injury. TIME OF EXAM: 2:45 PM 3 views of the right wrist were obtained. Distal radius and ulna are intact. Carpus appears intact and metacarpals are unremarkable. No fractures are seen. There are triscaphe joint degenerative changes. IMPRESSION: Degenerative changes. No acute bony abnormality is detected. Dictated by: Dictated on workstation # [id number] Dict: 06/15/21 1448 Trans: 06/15/211455 CV [id number] Interpreted by: MARY HERMOSILLO MD Electronically signed by: MARY HERMOSILLO MD 06/15/21 1456 Diagonstic Imaging: CT Plain Films/CT/US/NM/MRI: head Comments [facility] [place] NAME: HOWARD LUCERO [facility] REC#: [id number] PT STATUS: REG ER : 1950 PHYSICIAN: ALBINA PRATER MD ADMIT DATE: 06/15/21/ER Draft Date of Exam:06/15/21 CT HEAD WO Procedure: CT head without contrast. Technique: Multiple contiguous axial images were obtained through the brain without the use of intravenous contrast. Auto Exposure Controls were utilized during the CT exam to meet ALARA standards for radiation dose reduction. Indication: Head injury and pain after fall. Comparison: None. Discussion: No intracranial hemorrhage, mass, midline shift, or hydrocephalus. The ventricles and sulci are normal size and configuration for age. Mild soft tissue swelling along the right orbit. There is an air-fluid level within the right maxillary sinus which appears dense and could be posttraumatic. There may be a very small fracture involving the anterior aspect of the maxillary sinus on the right. Orbits are otherwise unremarkable. The mastoid air cells are well aerated. The calvarium is intact. Impression: 1. No acute intracranial abnormality identified. 2. Complex fluid layering within the right maxillary sinus, likely a small amount of blood products. There may be a tiny buckle fracture along the anterior aspect of the right maxillary sinus. Dictated on workstation # [id number] Dict: 06/15/21 1446 Trans: 06/15/211451 CVB [id number] Interpreted by: TERRI MCLEOD MD Electronically signed by: Diagonstic Imaging: CT Plain Films/CT/US/NM/MRI: chest Comments [facility] [place] [place] NAME: HOWARD LUCERO [facility] REC#: [id number] PT STATUS: REG ER : 1950 PHYSICIAN: ALBINA PRATER MD ADMIT DATE: 06/15/21/ER Draft Date of Exam:06/15/21 CT CHEST WO Procedure: CT chest without contrast. Technique: Multiple contiguous axial images were obtained through the chest without the use of intravenous contrast. Auto Exposure Controls were utilized during the CT exam to meet ALARA standards for radiation dose reduction. Indication: Fall with chest pain. Comparison: None. Discussion: Nondisplaced anterior right rib fractures involving the 5th through 9th ribs. No other fracture identified. No pneumothorax. The lungs are well aerated. No consolidation. Normal heart size. No pleural or pericardial fluid. The thoracic aorta is normal in caliber and configuration. No adenopathy. Postoperative changes noted along the stomach. The upper abdomen is otherwise unremarkable. No spinal fracture identified. The sternum is intact. Impression: 1. Nondisplaced right 5th through 9th rib fractures. No pneumothorax. Dictated on workstation # [id number] Dict: 06/15/21 1448 Trans: 06/15/21 1453 [facility] [id number] Interpreted by: TERRI MCLEOD MD Electronically signed by: Departure Impression Primary Impression: Multiple fractures of ribs, right side, initial encounter for closed fracture Additional Impressions: Fracture of maxillary sinus Qualified Codes: S02.401A - Maxillary fracture, unspecified side, initial encounter for closed fracture Strain of right wrist Qualified Codes: S66.911A - Strain of unspecified muscle, fascia and tendon at wrist and hand level, right hand, initial encounter Abrasion of right elbow Qualified Codes: S50.311A - Abrasion of right elbow, initial encounter Multiple contusions Disposition: 01 HOME, SELF-CARE Condition: Stable Departure-Patient Inst. Decision time for Depature: 15:38 Referrals: [facility] [place] Primary Care Physician TONYA LIMA DO Patient Instructions: Abrasions ED, Contusion (DC), Rib Fracture (DC), Wrist Sprain (DC) Add. Discharge Instructions: All discharge instructions reviewed with patient and/or family. Voiced understanding. Continue home medications as previously prescribed. Use incentive spirometer several times an hour while awake. You may splint the chest with blanket or pillow while coughing or deep breathing to prevent severe pain. You may follow- up with Dr. Lima for recheck and further evaluation as needed. Call his office for appointment. You may follow-up with Dr. Lynn for recheck and further evaluation of the right possible sinus fracture. Take new medications as prescribed. Return for worse pain, fever, vomiting, weakness, breathing problems or other concerns as needed. Scripts Amoxicillin (Amoxicillin) 500 Mg Capsule 500 MG PO TID, #21 CAP 0 Refills Prov: ALBINA PRATER MD 06/15/21 ALBINA PRATER MD Jun 15, 2021 14:10
[2021-06-15] MEDS ORDERED: TETANUS,DIPTH,PERTUSS P/F (BOOSTRIX) 0.5 ML VIAL IM ONE (14:15)
--- NOTE | 2021-06-15 14:52 | Diagnostic Imaging Report ---
Procedure: CT head without contrast. Technique: Multiple contiguous axial images were obtained through the brain without the use of intravenous contrast. Auto Exposure Controls were utilized during the CT exam to meet ALARA standards for radiation dose reduction. Indication: Head injury and pain after fall. Comparison: None. Discussion: No intracranial hemorrhage, mass, midline shift, or hydrocephalus. The ventricles and sulci are normal size and configuration for age. Mild soft tissue swelling along the right orbit. There is an air-fluid level within the right maxillary sinus which appears dense and could be posttraumatic. There may be a very small fracture involving the anterior aspect of the maxillary sinus on the right. Orbits are otherwise unremarkable. The mastoid air cells are well aerated. The calvarium is intact. Impression: 1. No acute intracranial abnormality identified. 2. Complex fluid layering within the right maxillary sinus, likely a small amount of blood products. There may be a tiny buckle fracture along the anterior aspect of the right maxillary sinus. Dictated by: Dictated on workstation # [id number]
--- NOTE | 2021-06-15 14:52 | Diagnostic Imaging Report ---
INDICATION: Fall with right wrist injury. TIME OF EXAM: 2:45 PM 3 views of the right wrist were obtained. Distal radius and ulna are intact. Carpus appears intact and metacarpals are unremarkable. No fractures are seen. There are triscaphe joint degenerative changes. IMPRESSION: Degenerative changes. No acute bony abnormality is detected. Dictated by: Dictated on workstation # [id number]
--- NOTE | 2021-06-15 14:54 | Diagnostic Imaging Report ---
Procedure: CT chest without contrast. Technique: Multiple contiguous axial images were obtained through the chest without the use of intravenous contrast. Auto Exposure Controls were utilized during the CT exam to meet ALARA standards for radiation dose reduction. Indication: Fall with chest pain. Comparison: None. Discussion: Nondisplaced anterior right rib fractures involving the 5th through 9th ribs. No other fracture identified. No pneumothorax. The lungs are well aerated. No consolidation. Normal heart size. No pleural or pericardial fluid. The thoracic aorta is normal in caliber and configuration. No adenopathy. Postoperative changes noted along the stomach. The upper abdomen is otherwise unremarkable. No spinal fracture identified. The sternum is intact. Impression: 1. Nondisplaced right 5th through 9th rib fractures. No pneumothorax. Dictated by: Dictated on workstation # [id number]
[2021-06-15] MEDS ORDERED: AMOX500C2 PO (15:40)
[2021-06-15 15:57] VITALS: BP 122/86
== END 2021-06-15 15:57 | disposition home or self-care (01) ==
LOC: EDUNIT# 13:16 → ER 13:18
DX: S22.41XA Multiple fractures of ribs, right side, initial encounter for closed fracture (principal); S02.40CA Maxillary fracture, right side, initial encounter for closed fracture; S51.011A Laceration without foreign body of right elbow, initial encounter; S66.911A Strain of unspecified muscle, fascia and tendon at wrist and hand level, right hand, initial encounter; S00.83XA Contusion of other part of head, initial encounter; I10 Essential (primary) hypertension; K21.9 Gastro-esophageal reflux disease without esophagitis; G89.29 Other chronic pain; M54.9 Dorsalgia, unspecified; E03.9 Hypothyroidism, unspecified; Z23 Encounter for immunization; Z79.891 Long term (current) use of opiate analgesic; Z79.899 Other long term (current) drug therapy; Z79.890 Hormone replacement therapy; W01.0XXA Fall on same level from slipping, tripping and stumbling without subsequent striking against object, initial encounter; Y92.007 Garden or yard of unspecified non-institutional (private) residence as the place of occurrence of the external cause
CPT/HCPCS: 70450; 71250; 73110; 90715; 94664

== ENCOUNTER → 2021-12-19 | Outpatient (CLI) | payer MEDICARE ==
[~2021-12-19] MED LIST changes: +AMOX500C2 PO
== END ==
LOC: CARD 14:00
PROVIDERS: ATTEND Internal Medicine Cardiovascular Disease
DX: I35.0 Nonrheumatic aortic (valve) stenosis (principal)
CPT/HCPCS: 93306

== ENCOUNTER 2022-06-06 10:48 | Emergency (ER) | payer MEDICARE ==
--- NOTE | 2022-06-06 11:00 | ED General ---
General Chief Complaint: Dizziness/Syncope Stated Complaint: DIZZINESS Nursing Triage Note: PT BROUGHT IN BY [facility] FROM HOME. PT STATES WAS SITTING IN CHAIR AND STARTED FEELING CLAMMY AND LIGHT HEADED. STATES BP AT HOME WAS LOW. Source of Information: Patient, EMS Exam Limitations: No Limitations History of Present Illness Date Seen by Provider: Jun 06, 2022 Time Seen by Provider: 10:49 Initial Comments 71-year-old female presents to the emergency department via EMS for reported low blood pressure. She states she had been doing dishes and went and sat in a chair. While sitting in the chair she became clammy, lightheaded and nauseous. She states she may have passed out but does not recall if she actually passed out or not. At present she feels back to normal. During the event her son took her blood pressure a couple times and it was "really low." She does not really recall the number. At no time did she have any chest pain or shortness of breath. She is on lisinopril, 5 mg daily which she has been on for a long time. She did recently start taking some oral collagen supplement [id number] which is the only change in her medications. No recent fevers or chills. She is eating and drinking well without difficulty. No bleeding. Allergies and Home Medications Allergies Coded Allergies: adhesive tape (Verified Allergy, Mild, Rash, 01/25/20) clonidine (Verified Allergy, Mild, 01/25/20) ibuprofen (Verified Allergy, Unknown, 01/25/20) end stage renal disease duloxetine (Unverified Adverse Reaction, Intermediate, NAUSEA, 01/23/20) REPORTS SIGNIFICANT N/V Patient Home Medication List Home Medication List Reviewed: Yes Amoxicillin (Amoxicillin) 500 Mg Capsule, 500 MG PO TID Prescribed by: ALBINA PRATER on 06/15/21 1540 Calcium Carbonate (Calcium) 600 Mg Tablet, 1,200 MG PO DAILY, (Reported) Entered as Reported by: VERENICE PARADA on 07/07/17 1313 Cetirizine HCl (Cetirizine HCl) 10 Mg Tablet, 10 MG PO HS, (Reported) Entered as Reported by: VERENICE PARADA on 07/07/17 1313 Cholecalciferol (Vitamin D3) (Vitamin D3) 125 Mcg Capsule, 125 MCG PO WEEK, (Reported) Entered as Reported by: VERENICE PARADA on 01/23/20 0858 Hydrocodone/Acetaminophen (Hydrocodone-Acetamin 7.5-325) 1 Each Tablet, 1 EACH PO Q4H Prescribed by: JONATHAN GHOSH on 01/25/20 1149 Hydrocodone/Acetaminophen (Hydrocodone-Acetamin 5-325 mg) 1 Each Tablet, 1 TAB PO Q4H PRN for PAIN-MODERATE (5-7) Prescribed by: ASHWIN BANKS on 05/31/21 1053 Levothyroxine Sodium (Levothyroxine Sodium) 50 Mcg Tablet, 50 MCG PO DAILY, (Reported) Entered as Reported by: VERENICE PARADA on 07/07/17 1313 Lisinopril (Lisinopril) 5 Mg Tablet, 5 MG PO DAILY, (Reported) Entered as Reported by: VERENICE PARADA on 09/14/17 1323 Meclizine HCl (Meclizine HCl) 25 Mg Tablet, 25 MG PO TID, (Reported) Entered as Reported by: VERENICE PARADA on 01/23/20 0858 Omeprazole (Omeprazole) 40 Mg Capsule.dr, 40 MG PO DAILY, (Reported) Entered as Reported by: VERENICE PARADA on 07/07/17 1313 Zolpidem Tartrate (Ambien) 10 Mg Tablet, 10 MG PO HS, (Reported) Entered as Reported by: VERENICE PARADA on 01/23/20 0858 Review of Systems Review of Systems Constitutional: no symptoms reported EENTM: no symptoms reported Respiratory: no symptoms reported Cardiovascular: no symptoms reported Gastrointestinal: no symptoms reported Genitourinary: no symptoms reported Musculoskeletal: no symptoms reported Skin: no symptoms reported Psychiatric/Neurological: Other Hematologic/Lymphatic: No Symptoms Reported (Dizziness) Immunological/Allergic: no symptoms reported Past Enpbcby-Chfbac-Ghuizn Hx Patient Social History Tobacco Use?: No Use of E-Cig and/or Vaping dev: No Substance use?: No Alcohol Use?: No Pt feels they are or have been: No Immunizations Up To Date Tetanus Booster (TDap): Unknown PED Vaccines UTD: No First/Initial COVID19 Vaccinat: 09/16 Second COVID19 Vaccination Slick: 10/17 Third COVID19 Vaccination Date: 04/18 Seasonal Allergies Seasonal Allergies: Yes Past Medical History Surgeries: Yes (FEET, L KNEE SCOPE, GASTRIC BYPASS, ) Gallbladder, Thyroidectomy Respiratory: No Currently Using CPAP: No Currently Using BIPAP: No Cardiac: Yes Hypertension Neurological: Yes (DIZZINESS WHEN LYING DOWN FOR FEW SECONDS) Vertigo Reproductive Disorders: No Female Reproductive Disorders: Denies Sexually Transmitted Disease: No HIV/AIDS: No Genitourinary: Yes (STAGE 3) Renal Failure Gastrointestinal: Yes Gastroesophageal Reflux, Chronic Constipation, Polyps Musculoskeletal: Yes Arthritis, Fibromyalgia, Chronic Back Pain Endocrine: No Hypothyroidsim HEENT: Yes (GLASSES, DENTURES) Loss of Vision: Bilateral Hearing Impairment: Denies Cancer: No Psychosocial: No Integumentary: No Blood Disorders: No Adverse Reaction/Blood Tranf: No (N/A) Family Medical History Reviewed Nursing Family Hx Colon cancer No Pertinent Family Hx Physical Exam Vital Signs Vital Signs - First Documented 06/06/22 10:50 Temp 35.4 Pulse 70 Resp 16 B/P (MAP) 111/60 (77) Pulse Ox 99 O2 Delivery Room Air Capillary Refill : Less Than 3 Seconds Height, Weight, BMI Height: 5'6.00" Weight: 263lbs. 3.0oz. 119.876654my; 41.00 BMI Method:Stated General Appearance: No Apparent Distress, WD/WN HEENT: PERRL/EOMI, TMs Normal, Normal ENT Inspection, Pharynx Normal Neck: Normal Inspection, Non Tender, Supple Respiratory: Chest Non Tender, Lungs Clear, Normal Breath Sounds, No Accessory Muscle Use, No Respiratory Distress Cardiovascular: Regular Rate, Rhythm, No Edema, No Gallop, No JVD, No Murmur, Normal Peripheral Pulses Gastrointestinal: Normal Bowel Sounds, No Organomegaly, No Pulsatile Mass, Non Tender, Soft Back: Normal Inspection, No Vertebral Tenderness Extremity: Normal Capillary Refill, Normal Inspection, Normal Range of Motion, Non Tender, No Calf Tenderness, No Pedal Edema Neurologic/Psychiatric: Alert, Oriented x3, No Motor/Sensory Deficits, Normal Mood/Affect Skin: Normal Color, Warm/Dry Progress/Results/Core Measures Suspected Sepsis SIRS Temperature: Pulse: 70 Respiratory Rate: 16 Laboratory Tests 06/06/22 10:59: White Blood Count 7.8 Blood Pressure 111 /60 Mean: 77 Laboratory Tests 06/06/22 10:59: Creatinine 1.28, Platelet Count 225, Total Bilirubin 0.4 Results/Orders Lab Results Laboratory Tests Test 06/06/22 10:59 Range/Units White Blood Count 7.8 4.3-11.0 10^3/uL Red Blood Count 3.65 L 3.80-5.11 10^6/uL Hemoglobin 11.1 L 11.5-16.0 g/dL Hematocrit 34 L 35-52 % Mean Corpuscular Volume 93 80-99 fL Mean Corpuscular Hemoglobin 30 25-34 pg Mean Corpuscular Hemoglobin Concent 33 32-36 g/dL Red Cell Distribution Width 12.8 10.0-14.5 % Platelet Count 225 130-400 10^3/uL Mean Platelet Volume 10.1 9.0-12.2 fL Immature Granulocyte % (Auto) 1 % Neutrophils (%) (Auto) 71 42-75 % Lymphocytes (%) (Auto) 21 12-44 % Monocytes (%) (Auto) 6 0-12 % Eosinophils (%) (Auto) 1 0-10 % Basophils (%) (Auto) 0 0-10 % Neutrophils # (Auto) 5.6 1.8-7.8 10^3/uL Lymphocytes # (Auto) 1.6 1.0-4.0 10^3/uL Monocytes # (Auto) 0.4 0.0-1.0 10^3/uL Eosinophils # (Auto) 0.1 0.0-0.3 10^3/uL Basophils # (Auto) 0.0 0.0-0.1 10^3/uL Immature Granulocyte # (Auto) 0.1 0.0-0.1 10^3/uL Sodium Level 140 135-145 MMOL/L Potassium Level 3.7 3.6-5.0 MMOL/L Chloride Level 108 H 98-107 MMOL/L Carbon Dioxide Level 22 21-32 MMOL/L Anion Gap 10 5-14 MMOL/L Blood Urea Nitrogen 22 H 7-18 MG/DL Creatinine 1.28 0.60-1.30 MG/DL Estimat Glomerular Filtration Rate 45 BUN/Creatinine Ratio 17 Glucose Level 110 H 70-105 MG/DL Calcium Level 8.1 L 8.5-10.1 MG/DL Corrected Calcium 8.6 8.5-10.1 MG/DL Total Bilirubin 0.4 0.1-1.0 MG/DL Aspartate Amino Transf (AST/SGOT) 17 5-34 U/L Alanine Aminotransferase (ALT/SGPT) 18 0-55 U/L Alkaline Phosphatase 70 40-136 U/L Troponin I < 0.028 <0.028 NG/ML Total Protein 5.8 L 6.4-8.2 GM/DL Albumin 3.4 3.2-4.5 GM/DL My Orders Orders - LANGMAKEDA Napier DO Comprehensive Metabolic Panel (06/06/22 10:56) Ekg Tracing (06/06/22 10:56) Troponin I Glory (06/06/22 10:56) Cbc With Automated Diff (06/06/22 10:56) Orthostatic Vital Signs (Adult (06/06/22 10:56) Ns Iv 1000 Ml (Sodium Chloride 0.9%) (06/06/22 11:12) Ns Iv 500 Ml (Sodium Chloride 0.9%) (06/06/22 11:30) Vital Signs/I&O 06/06/22 06/06/22 06/06/22 10:50 11:05 12:44 Temp 35.4 Pulse 70 55 63 59 70 64 68 Resp 16 B/P (MAP) 111/60 (77) 78/54 (62) 101/59 (73) 83/47 (59) 114/72 (86) 98/76 (83) 101/67 (78) Pulse Ox 99 O2 Delivery Room Air Capillary Refill : Less Than 3 Seconds Blood Pressure Mean: 77 Departure Communication (Admissions) The patient is initially hypotensive shortly after arrival. She is relatively asymptomatic at rest however with sitting and standing she does become quite dizzy. She given IV fluids, 1 L in total and 2 500 cc aliquots. Her orthostatics have dramatically improved and she is asymptomatic lying sitting and standing. White blood cell count is normal, no evidence for infectious process. No SHAQUILLE or electrolyte abnormalities. She is not anemic. I think this is simply related to dehydration. Advised to increase her fluids at home, rest. Did advise that she take her blood pressure in the morning prior to taking her blood pressure medicine and if blood pressure is less than 120 systolic to hold her blood pressure medication. She states understanding. She is discharged in stable condition peer Impression Primary Impression: Orthostatic hypotension Disposition: 01 HOME, SELF-CARE Condition: Stable Departure-Patient Inst. Referrals: [facility] (PCP/Family) Primary Care Physician Patient Instructions: Low Blood Pressure Add. Discharge Instructions: Increase your fluids at home, rest. Take your blood pressure in the morning and if the top number is less than 120 please do not take your blood pressure medicine tomorrow. Keep a log of your blood pressures at home and take this to your primary doctor to determine what to do going further regarding her blood pressure medicines. Return to the emergency department for any chest pain shortness of breath or if you pass out. Follow-up with your primary doctor in the next week for further evaluation and treatment recommendations. All discharge instructions reviewed with patient and/or family. Voiced understanding. MAKEDA CROFT DO Jun 06, 2022 11:00
[2022-06-06 11:05] VITALS: BP_SYST 78; BP_SYST 83; BP_SYST 98; BP_DIAS 47; BP_DIAS 54; BP_DIAS 76
[2022-06-06 11:06] LABS: BASOPHILS % (AUTO) 0 % (0-10); EOSINOPHILS # (AUTO) 0.1 10^3/uL (0.0-0.3); EOSINOPHILS % (AUTO) 1 % (0-10); HEMATOCRIT 34 % (35-52); HEMOGLOBIN 11.1 g/dL (11.5-16.0); LYMPHOCYTES # (AUTO) 1.6 10^3/uL (1.0-4.0); LYMPHOCYTES % (AUTO) 21 % (12-44); MEAN CORPUSCULAR HEMOGLOBIN 30 pg (25-34); MEAN CORPUSCULAR HGB CONC 33 g/dL (32-36); MEAN CORPUSCULAR VOLUME 93 fL (80-99); MEAN PLATELET VOLUME 10.1 fL (9.0-12.2); MONOCYTES # (AUTO) 0.4 10^3/uL (0.0-1.0); MONOCYTES % (AUTO) 6 % (0-12); NEUTROPHILS # (AUTO) 5.6 10^3/uL (1.8-7.8); NEUTROPHILS % (AUTO) 71 % (42-75); PLATELET COUNT 225 10^3/uL (130-400); WHITE BLOOD COUNT 7.8 10^3/uL (4.3-11.0)
[2022-06-06] MEDS ORDERED: NS IV 1000 ML 1,000 ML ONE (11:12)
[2022-06-06 11:25] LABS: ALANINE AMINOTRANSFERASE 18 U/L (0-55); ALBUMIN 3.4 GM/DL (3.2-4.5); ALKALINE PHOSPHATASE 70 U/L (40-136); BILIRUBIN,TOTAL 0.4 MG/DL (0.1-1.0); BUN/CREATININE RATIO 17; CALCIUM 8.1 MG/DL (8.5-10.1); CARBON DIOXIDE 22 MMOL/L (21-32); CHLORIDE 108 MMOL/L (98-107); CREATININE SERUM 1.28 MG/DL (0.60-1.30); GFR ESTIMATED 45; GLUCOSE 110 MG/DL (70-105); POTASSIUM 3.7 MMOL/L (3.6-5.0); SODIUM 140 MMOL/L (135-145); TOTAL PROTEIN 5.8 GM/DL (6.4-8.2)
[2022-06-06] MEDS ORDERED: NS IV 500 ML 500 ML IV SCH (11:30)
[2022-06-06 12:44] VITALS: BP_SYST 101; BP_SYST 114; BP_DIAS 59; BP_DIAS 67; BP_DIAS 72
[2022-06-06 13:30] VITALS: BP 104/78
== END 2022-06-06 13:30 | disposition home or self-care (01) ==
LOC: EDUNIT# 10:48 → ER 10:50
DX: I95.1 Orthostatic hypotension (principal)
CPT/HCPCS: 36415; 80053; 84484; 85025; 93005

== ENCOUNTER 2023-04-22 05:45 | Outpatient (CLI) | payer MEDICARE ==
[~2023-04-22] VITALS: Ht 167.6 cm; Wt 111.0 kg
[~2023-04-22 05:45] MED LIST changes: -MECL-149 PO; +MECL-291 PO
[2023-04-22] MEDS ORDERED: MULT-1136 PO (10:30)
[2023-04-22] MEDS ORDERED: HYDR-3820 PO (10:30)
[2023-04-22] MEDS ORDERED: ATOR20TA66 PO (10:30)
[2023-04-22] MEDS ORDERED: TIZA-186 PO (10:30)
[2023-04-22] MEDS ORDERED: FURO40TA4 PO (10:30)
== END 2023-04-22 10:34 | disposition home or self-care (01) ==
LOC: PREOP 05:45
PROVIDERS: ATTEND Surgery
DX: Z01.818 Encounter for other preprocedural examination (principal)

== ENCOUNTER 2023-04-30 12:13 | Day surgery (SDC) | payer MEDICARE ==
[~2023-04-30] VITALS: Ht 167 cm; Wt 111.0 kg
[~2023-04-30 12:13] MED LIST changes: +ATOR20TA66 PO; +FURO40TA4 PO; +HYDR-3820 PO; +MULT-1136 PO; +TIZA-186 PO
[2023-04-30] MEDS ORDERED: LACTATED RINGERS 1,000 ML 1,000 ML IV STA (12:23)
[2023-04-30 12:30] VITALS: BP 141/70
[2023-04-30] MEDS ORDERED: LORA10TA7 PO (12:54)
[2023-04-30] MEDS ORDERED: ASCO100024 PO (12:54)
[2023-04-30] MEDS ORDERED: FURO20TA4 PO (12:54)
--- NOTE | 2023-04-30 13:04 | Progress Note-Pre Operative ---
Pre-Operative Progress Note Date H&P Reviewed: Apr 30, 2023 Time H&P Reviewed: 13:04 History & Physical: H&P Reviewed, Patient Examed, No changes noted Pre-Operative Diagnosis: rectal pain TONYA LIMA DO Apr 30, 2023 13:04
[2023-04-30 13:20] VITALS: BP 97/41
[2023-04-30] MEDS ORDERED: proPOfol INJECTION 200 MG/20 ML VIAL IV ONE (13:25)
--- NOTE | 2023-04-30 13:28 | Anesthesia-General Post-Op ---
MAC Patient Condition Mental Status/LOC: Same as Preop Cardiovascular: Satisfactory Nausea/Vomiting: Absent Respiratory: Satisfactory Pain: Controlled Complications: Absent Post Op Complications Complications None Follow Up Care/Instructions Patient Instructions None needed. Anesthesiology Discharge Order Discharge Order Patient is doing well, no complaints, stable vital signs, no apparent adverse anesthesia problems. No complications reported per nursing. FIDE BROOKS DO Apr 30, 2023 13:28
[2023-04-30 13:30] VITALS: BP 97/41
[2023-04-30 13:53] VITALS: BP 112/60
--- NOTE | 2023-04-30 20:55 | OPERATIVE REPORT ---
DATE OF SERVICE: 04/30/2023 PREOPERATIVE DIAGNOSIS: Rectal pain. POSTOPERATIVE DIAGNOSES: Normal flexible sigmoidoscopy. SURGEON: Tonya Lozano DO ANESTHESIA: Per MDA. ESTIMATED BLOOD LOSS: None. COMPLICATIONS: None. INDICATIONS: The patient is a 72-year-old female with rectal pain. She understands risks and benefits of procedure and wished to proceed. Consent was signed in chart. DESCRIPTION OF PROCEDURE: The patient was taken to endoscopy suite, placed in left lateral recumbent position. Timeout was performed. Digital rectal exam was performed. No palpable polyps, masses or ulcerations. Scope was inserted in the rectum, advanced through the rectum into the sigmoid colon. Prep was adequate. Scope was then slowly retracted back within the sigmoid. There were no polyps, masses or ulcerations. Once in the rectum, scope was inserted and retracted multiple times and retroflexed noting no other pathology. Scope was returned to its normal position, slowly withdrawn until completely removed noting no other pathology. The patient tolerated the procedure well without complications, taken to recovery room in stable condition. RECOMMENDATIONS: If the patient has a sensation of rectal pain or rectal mass, she should be reevaluated at that time, otherwise follow up on an as needed basis. Job ID: [id number] DocumentID: [id number] Dictated Date: 04/30/2023 14:04:32 Medical Laboratory Specialist Date: 04/30/2023 20:53:00 Dictated By: TONYA LOZANO DO
== END 2023-04-30 13:53 | disposition home or self-care (01) ==
LOC: ENDO 12:13
PROVIDERS: ATTEND Surgery
DX: K62.89 Other specified diseases of anus and rectum (principal); E66.01 Morbid (severe) obesity due to excess calories; Z68.39 Body mass index [BMI] 39.0-39.9, adult